=== PATIENT | male | born 1955 | race Caucasian/White ===

== ENCOUNTER 2023-05-01 14:22 | Outpatient (OUT) | payer MEDICARE, SELFPAY ==
--- NOTE | 2023-05-01 14:33 | ECG_ITS ---
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
== END 2023-05-01 14:23 | disposition home or self-care (01) ==
LOC: PST 14:29
PROVIDERS: Visit Provider Surgery
DX: Z01.810 Encounter for preprocedural cardiovascular examination (principal); R59.0 Localized enlarged lymph nodes; Z85.72 Personal history of non-Hodgkin lymphomas
CPT/HCPCS: 93005

== ENCOUNTER 2023-05-07 07:51 | Day surgery (SDC) | payer MEDICARE, SELFPAY ==
[2023-05-01 15:05] VITALS: PULSE 90; TEMP 36.6; O2SAT 96; BMI 23.2
[2023-05-07] VITALS (8 sets, daily range): BP systolic 96–132; BP diastolic 60–83; PULSE 81–96; RESP 14–22; TEMP 36.1–37.1; O2SAT 94–99
[2023-05-07] MEDS: LACTATED RINGER'S SOLUTION 1,000 ML 50 ML IV (08:22)
[2023-05-07] MEDS: CEFAZOLIN SODIUM/DEXTROSE,ISO 1 GM/50 ML IV.SOLN IV (09:01)
[2023-05-07] MEDS: BUPIVACAINE HCL 0.5% PF 50 MG/10 ML VIAL INJ (10:21)
--- NOTE | 2023-05-07 10:46 | OP_ITS ---
OPERATION DATE: ??05/07/2023 PREOPERATIVE DIAGNOSIS:? Bilateral inguinal adenopathy, history of lymphoma. POSTOPERATIVE DIAGNOSIS:? Bilateral inguinal adenopathy, history of lymphoma. PROCEDURE:? Incisional biopsy of large right infrainguinal lymph node. SURGEON:? Elmer Jung M.D. ANESTHESIA:? General with laryngeal mask airway as well as local with 0.5% Marcaine plain. ESTIMATED BLOOD LOSS:? Less than 5 mL. INDICATIONS AND CONSENT:? Patient is a 67-year-old male with a personal history of lymphoma, originally diagnosed 20 years ago.? He had good response to treatment and has been monitored.? He recently noted, over the last several months, enlarging adenopathy in the inguinal areas bilaterally.? ?Workup revealed extensive inguinal and pelvic adenopathy concerning for recurrent lymphoma.? Indications, risks, benefits, alternatives of proceeding with biopsy of enlarged lymph node were explained extensively to the patient, including the risks of bleeding, infection, scarring, pain, lymphocele, blood clot, pulmonary embolus, heart attack, anesthetic complications, need for further surgery.? All of his questions were answered.? Informed consent was obtained. PROCEDURE:? Patient brought to the operating room and placed in a supine position.? General anesthesia was induced.? He was prepped and draped in the usual sterile fashion.? An oblique incision was made in the area of the skin crease overlying the large right infrainguinal lymph node.? This was approximately 6-7 cm in greatest diameter, the lymph node.? It was carried down through subcutaneous tissue using sharp dissection as well as electrocautery.? The lymph node was partially freed up and incision was made in the capsule lymph node.? A 2 cm chunk of lymph node was sent fresh for flow cytometry in the special media, and another 2 cm segment was sent in fixative for permanent.? The capsule was closed with interrupted 3-0 Vicryl and 3-0 chromic sutures.? There was a small open area that was cauterized with electrocautery.? There was no active bleeding or drainage from the area.? The subcutaneous tissue was then re- approximated with interrupted 3-0 Monocryl suture.? The skin was then closed with a running 4-0 subcuticular Monocryl suture and skin glue.? Sterile pressure dressing was applied.? Sponge and needle counts were correct x2 per nursing personnel.? Patient tolerated procedure well, was sent to recovery room in good condition. CC:? Patient?s family physician. MIGUEL
--- NOTE | 2023-05-07 11:34 | PC.NURSE ---
dressing clean dry and intact
== END 2023-05-07 11:36 | disposition home or self-care (01) ==
PROVIDERS: Visit Provider Surgery
PROC: (CPT 38531; principal; 2023-05-07 08:50)
DX: C83.35 Diffuse large B-cell lymphoma, lymph nodes of inguinal region and lower limb (principal); E03.9 Hypothyroidism, unspecified; K21.9 Gastro-esophageal reflux disease without esophagitis; Z87.891 Personal history of nicotine dependence
CPT/HCPCS: 38531; 36415; 88307; 88341; 88342; 94667; 99999; J2704

== ENCOUNTER 2023-05-26 09:59 | Outpatient (OUT) | payer MEDICARE, SELFPAY ==
--- NOTE | 2023-05-26 11:01 | CA_ITS ---
Patient: KATIA SHAIKH Exam Date: 05/26/2023 : 1955 Gender:M Ordering : DR EMIL JOEL M.D. Admission #: [id number] Family : Elmer Jung . Order #: [id number] CLICK HERE TO VIEW EXAM ECHOCARDIOGRAM REPORT PROCEDURE: CA ECHO DOPPLER COMPLETE INDICATIONS: Non-Hodgkin lymphoma, DE DIOS COMPARISON: None. DESCRIPTION: COMPLETE ECHOCARDIOGRAM Real-time transthoracic echocardiography with 2D, M-mode, spectral and color flow Doppler performed. QUALITY: Technical quality was good. LEFT VENTRICLE: Normal chamber size. Normal left ventricular wall thickness. Global left ventricular systolic function is normal. LV EF: Estimated left ventricular ejection fraction is 65-70%. DIASTOLIC: Normal diastolic function. ATRIAL SEPTUM: LEFT ATRIUM: Normal chamber size. RIGHT ATRIUM: Mild dilatation. RIGHT VENTRICLE: Normal chamber size. Normal right ventricular systolic function. TRICUSPID VALVE: Normal mobility and thickness. No stenosis with mild regurgitation. Mild pulmonary hypertension. RVSP 37 mmHg MITRAL VALVE: Normal mobility and thickness. No evidence of mitral valve stenosis. There is no mitral annular calcification. Mild to moderate mitral regurgitation. AORTIC VALVE: Normal trileaflet appearance. Mildly calcified aortic valve. Mildly diminished mobility. No evidence of aortic valve stenosis. Trivial aortic regurgitation. AORTIC ROOT: Normal diameter and appearance. PULMONIC VALVE: Normal thickness and mobility. No stenosis. Trivial regurgitation. PERICARDIUM: No evidence of pericardial effusion. IVC: Collapses with inspirations. Normal size. PLEURA: CONCLUSION: 1. Normal left ventricular size and systolic function. LVEF is 65 to 70%. 2. Normal right ventricular size and systolic function. 3. Normal diastolic function. 4. Mild to moderate mitral regurgitation. 5. Mild tricuspid regurgitation. 6. Mildly calcified aortic valve with no significant stenosis or regurgitation. 7. Mildly elevated right-sided pressures. Adult Echocardiography Procedure Report Left Ventricle LVEDD (3.7 - 5.6 cm): 4.33 cm LVESD (2.2 - 4.0 cm): 2.98 cm LVIVS thickness (0.6 - 1.2 cm): 0.81 cm LVPW thickness (0.5 - 1.0 cm): 0.92 cm e': 0.12 m/s E - e': 7.22 LVOT Max Gradient: 6.11 mm[Hg], 5.31 mm[Hg] LVOT Area (cm2): 1.19 m/s Peak Velocity (LVOT): 1.24 m/s, 1.15 m/s Mean Velocity (LVOT): 0.80 m/s LVOT Diameter 1.74 cm Left Ventricular Ejection Fraction: 65-70 % Left Atrium LA Volume Index (2D A2C): 31.67 ml/m2 Left Atrium Systolic Dimension: 3.35 cm Mitral Valve MV E to A Ratio: 1.50, 1.32 Mitral Valve A-Wave Peak Velocity: 0.59 m/s Mitral Valve E-Wave Peak Velocity: 0.83 m/s Right Ventricle RV Internal Diastolic Dimension: 3.74 cm Aorta AO Root Diam: 3.01 cm Ascending Ao Diam: 2.75 cm Aortic Valve AoV Area (Peak Robert): 1.86 cm2, 1.90 cm2, 1.83 cm2 AoV Area (VTI): 1.74 cm2, 1.66 cm2, 1.82 cm2 Peak Velocity(Antegrade Flow): 1.54 m/s, 1.49 m/s Peak Gradient(Antegrade Flow): 9.53 mm[Hg], 8.93 mm[Hg] Mean Velocity(Antegrade Flow): 1.03 m/s, 0.99 m/s Mean Gradient(Antegrade Flow): 5.11 mm[Hg], 4.63 mm[Hg] Velocity Time Integral: 31.59 cm, 30.46 cm Tricuspid Valve Peak Velocity (Regurgitant Flow): 2.57 m/s, 2.70 m/s, 2.68 m/s, 2.92 m/s, 2.97 m/s Pulmonic Valve Mean Gradient: 4.05 mm[Hg], 4.00 mm[Hg] Mean Velocity: 0.95 m/s, 0.94 m/s Peak Velocity: 1.33 m/s, 1.15 m/s Peak Gradient: 7.09 mm[Hg], 7.09 mm[Hg], 5.33 mm[Hg] Right Atrium Right Atrium Systolic Pressure: 65.43 ml, 65.43 ml Dictated by: Kye Gong M.D. on 05/28/2023 at 17:52 Approved by: Kye Gong M.D. on 05/28/2023 at 17:56
== END 2023-05-26 10:00 | disposition home or self-care (01) ==
LOC: CARD 10:00
PROVIDERS: Visit Provider Internal Medicine Hematology & Oncology
DX: C85.98 Non-Hodgkin lymphoma, unspecified, lymph nodes of multiple sites (principal); R06.09 Other forms of dyspnea; I08.1 Rheumatic disorders of both mitral and tricuspid valves
CPT/HCPCS: 93306; 93356

== ENCOUNTER 2023-05-26 10:01 | Outpatient (OUT) | payer MEDICARE, SELFPAY | END 2023-05-26 10:02 | disposition home or self-care (01) | LOC: PST 10:01 | PROVIDERS: Visit Provider Surgery | DX: Z01.818 Encounter for other preprocedural examination (principal); C83.35 Diffuse large B-cell lymphoma, lymph nodes of inguinal region and lower limb ==

== ENCOUNTER 2023-05-28 11:13 | Day surgery (SDC) | payer MEDICARE, SELFPAY ==
[2023-05-26 11:32] VITALS: BP 126/79; PULSE 78; RESP 20; TEMP 35.9; O2SAT 97; BMI 24.7
[2023-05-28] VITALS (9 sets, daily range): BP systolic 114–140; BP diastolic 73–80; PULSE 85–95; RESP 16–20; TEMP 36.3–36.4; O2SAT 94–98
--- NOTE | 2023-05-28 | OP_ITS ---
OPERATION DATE: ??05/28/2023 PREOPERATIVE DIAGNOSIS:? B-cell lymphoma, need for secure central access for chemotherapy. POSTOPERATIVE DIAGNOSIS:? B-cell lymphoma, need for secure central access for chemotherapy. PROCEDURE:? Right subclavian Infusaport insertion. SURGEON:? Elmer Jung M.D. ANESTHESIA:? General with laryngeal mask airway, as well as local with 0.5% Marcaine plain. ESTIMATED BLOOD LOSS:? Less than 10 mL. INDICATIONS AND CONSENT:? Patient is a 67-year-old male presents with recurrent B-cell lymphoma.? Oncology has requested Infusaport for secure central access for chemotherapy.? Indications, risks, benefits, alternatives of proceeding with Infusaport insertion were explained extensively to the patient, including the risks of bleeding, infection, scarring, pain, pneumothorax, blood clot and pulmonary embolus, heart attack, anesthetic complications, need for further surgery or port removal.? All of his questions were answered.? Informed consent was obtained.? PROCEDURE:? Patient brought to the operating room and placed in the supine position.? General anesthesia was induced.? He was prepped and draped in the usual sterile fashion.? He did have a right external jugular vein noted and, therefore, cut down was made over the external jugular in the area of the skin crease, perpendicular to the long axis of the external jugular.? It was carried down and the external jugular was dissected free.? Once it was dissected free, it was found that the proximal part was of normal caliber, but then it quickly scarred down into a very small vessel.? I did attempt to cannulate this, but the catheter would not pass into this scarred down portion.? Therefore, the vein was ligated.? Attention was then turned to the chest wall, where a sterile similar technique was used to gain access to the right subclavian vein with patient in Trendelenburg position.? On the first stick, there was good return of venous blood.? The wire passed easily.? Position was checked with fluoroscopy.? It was noted to be in good position within the right heart.? A small stab incision was made over the bladder with a #11 blade.? The dilator was passed over the wire followed by the dilator and peel away sheath.? The dilator was removed with the wire.? The catheter was then inserted and the peel away sheath was removed.? The catheter was adjusted so it was in good position in the distal SVC at the level of the laquita.? The catheter aspirated blood easily and was then flushed with saline.? The area right around where the insertion site was, was enlarged, in the area of the skin crease with the 15 blade.? Pocket was then created above the pectoralis fascia using electrocautery.? The pre-flushed port was then attached to the catheter.? It aspirated blood easily, was then flushed with heparinized saline.? Fluoroscopy was checked once again.? The catheter was noted to be in good position without kinking or twisting along its course.? The port was then secured to the pectoralis fascia using interrupted 2-0 Prolene sutures.? Incisions were then closed in layers with interrupted 3-0 Monocryl sutures and 4-0 subcuticular Monocryl sutures and skin glue.? Sterile pressure dressings were applied.? Sponge and needle counts were correct x2 per nursing personnel.? Patient tolerated procedure well, was sent to recovery room in good condition, where the port with chest x-ray was pending at the time of this dictation.? CC:? Patient?s family physician ? Dr. Ashutosh RIVERA
[2023-05-28 11:35] LABS: Anion Gap 12.2; BUN Creatinine Ratio 12.9; Calcium 9.2 mg/dL (8.5-10.1); Carbon Dioxide 26.8 mmol/L (21.0-32.0); Chloride 104 mmol/L (98-107); Estimated GFR (African America >60 (>=60); Estimated GFR (Non-African Ame >60 (>=60); Glucose 100 mg/dL (74-106); Sodium 139 mmol/L (136-145)
[2023-05-28] MEDS: LACTATED RINGER'S SOLUTION 1,000 ML 50 ML IV (11:48)
[2023-05-28] MEDS: CEFAZOLIN SODIUM/DEXTROSE,ISO 2 GM/50 ML PIGGYBACK IV (12:15)
[2023-05-28] MEDS: BUPIVACAINE HCL 0.5% PF 50 MG/10 ML VIAL INJ (13:24)
[2023-05-28] MEDS: HEPARIN SODIUM (PORCINE) PF LOCK FLUSH 500 UNIT/5 ML SYRINGE INJ (13:25)
--- NOTE | 2023-05-28 13:53 | XR_ITS ---
The [address] [address] Patient Name: KATIA SHAIKH MRN: [id number] date: 1955 Sex: M Assigned Patient Location: SURGOUT Current Patient Location: [facility] Accession/Order Number: [id number] Exam Date: 05/28/2023 14:04 Report Date: 05/28/2023 14:23 At the request of: CHIQUITA RIVERA Procedure: XR chest 1V EXAMINATION: XR chest 1V HISTORY: s/p port placement COMPARISON: No relevant comparison available. TECHNIQUE: AP portable FINDINGS: LUNGS: No significant pulmonary parenchymal abnormalities. VASCULATURE: No increased pulmonary vasculature. PLEURA: No pneumothorax, effusion, or pleural thickening. CARDIAC: No cardiomegaly or cardiac silhouette abnormality. MEDIASTINUM: No visible mass or adenopathy. Right Port-A-Cath tip projects over the mid superior vena cava BONES: No fracture or visible bone lesion. OTHER: Negative. XR/XR chest 1V IMPRESSION: Right Port-A-Cath placement with no pneumothorax Electronically authenticated by: QUE ESQUIVEL Date: 05/28/2023 14:23
== END 2023-05-28 14:58 | disposition home or self-care (01) ==
PROVIDERS: Anesthesiology; Visit Provider Surgery
PROC: (CPT 36561; principal; 2023-05-28 14:35)
DX: C85.10 Unspecified B-cell lymphoma, unspecified site (principal)
CPT/HCPCS: 36561; 36415; 71045; 76000; 80048; C1778; J2704

== ENCOUNTER 2023-11-24 10:46 | Outpatient (OUT) | payer MEDICARE, SELFPAY ==
--- NOTE | 2023-11-24 10:50 | US_ITS ---
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 TECHNIQUE: Grayscale and color ultrasound FINDINGS: Identified in the right proximal thigh corresponding to the patient's palpable abnormality is a focal oval almost round very hypoechogenic heterogeneous hypervascular mass measuring 4.8 x 3.5 x 4.5 cm. This lesion is in the subcutaneous fat and appears to deform but not definitively invade the underlying muscle US/US extremity nonvascular RT IMPRESSION: 4.8 cm hypervascular mass corresponding to the patient's palpable abnormality. Electronically authenticated by: QUE ESQUIVEL Date: 11/24/2023 12:02
== END 2023-11-24 10:47 | disposition home or self-care (01) ==
LOC: US 10:46
PROVIDERS: Visit Provider Internal Medicine Hematology & Oncology
DX: C82.38 Follicular lymphoma grade IIIa, lymph nodes of multiple sites (principal)
CPT/HCPCS: 76882

== ENCOUNTER 2023-12-12 12:57 | Outpatient (OUT) | payer MEDICARE, SELFPAY ==
--- NOTE | 2023-12-12 13:00 | ECG_ITS ---
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
== END 2023-12-12 12:58 | disposition home or self-care (01) ==
LOC: PST 12:58
PROVIDERS: Visit Provider Surgery
DX: Z01.810 Encounter for preprocedural cardiovascular examination (principal); R19.09 Other intra-abdominal and pelvic swelling, mass and lump; R59.0 Localized enlarged lymph nodes; Z85.72 Personal history of non-Hodgkin lymphomas; C83.30 Diffuse large B-cell lymphoma, unspecified site
CPT/HCPCS: 93005

== ENCOUNTER 2023-12-17 09:18 | Day surgery (SDC) | payer MEDICARE, SELFPAY ==
[2023-12-12 13:18] VITALS: BP 131/83; PULSE 95; RESP 18; TEMP 36.5; O2SAT 96; BMI 25.3
[2023-12-17] VITALS (8 sets, daily range): BP systolic 108–129; BP diastolic 69–95; PULSE 69–95; RESP 12–16; TEMP 36.3–36.4; O2SAT 95–97
--- NOTE | 2023-12-17 | OP_ITS ---
OPERATION DATE: 12/17/2023 PREOPERATIVE DIAGNOSIS: Enlarged right inguinal lymph node, history of lymphoma. POSTOPERATIVE DIAGNOSIS: Enlarged right inguinal lymph node, history of lymphoma. PROCEDURE: Excisional biopsy, right inguinal lymph node, 6 cm in diameter. SURGEON: Elmer Jung M.D. ANESTHESIA: General as well as local with Exparel and 0.25% Marcaine solution. ESTIMATED BLOOD LOSS: Less than 10 mL. INDICATIONS AND CONSENT: Patient is a 68-year-old male with history of lymphoma x2. He did have a lymph node biopsy this past May and was treated for extensive lymphoma in the bilateral inguinal areas, as well as other areas. He had good response, except to one area in the right groin, which initially decreased markedly, but then has gradually been increasing since his chemotherapy has been discontinued, and this had increased activity on PET scan. His oncologist requested a repeat biopsy. Indications, risks, benefits, alternatives of proceeding were explained extensively to the patient, including the risks of bleeding, infection, scarring, pain, nerve injury, lymphocele, need for further surgery, chronic wound problems. All of his questions were answered. Informed consent was obtained. PROCEDURE: Patient brought to the operating room, placed in the supine position. General anesthesia was induced. He was prepped and draped in the usual sterile fashion. The previous incision overlying the enlarged lymph node was opened with the scalpel blade and carried down through subcutaneous tissue using sharp dissection, as well as electrocautery. There was noted to be chronic inflammatory changes around the lymph node, which was approximately 6 cm in greatest diameter. It was carefully freed up circumferentially by dividing small vessels and lymphatics. Using the harmonic scalpel, some larger vessels were clipped. It was noted to be an enlarged lymph node. It was completely excised. Half of it was sent fresh, in medium, for flow cytometry. The remaining was sent to pathology in formalin. All lymphatics were either divided with the harmonic or with clips. The wound was irrigated. There was good hemostasis. Subcutaneous tissues were re-approximated with interrupted 3-0 Monocryl suture. The skin was then closed with a running 4-0 subcuticular Monocryl suture and skin glue as well as a sterile pressure dressing. Sponge and needle counts were correct x2 per nursing personnel. Patient tolerated procedure well, was sent to recovery room in good condition. CC: Patient?s family physician Dr. Ashutosh RIVERA
--- OUTSIDE RECORDS SUMMARY | 2023-12-17 09:31 | XMS_ITS | CCD ---
Author Name Unknown Address [address] [place] [address] Organization [facility] Care Team Providers Care Pharmacology Teacher Name Role Phone Unavailable Primary Care Provider EMELIA Everett Referring Unavailable Unavailable Primary Care Provider UnavailEMELIA Velazquez Primary Care Physician Unavailable Primary Care Provider Erasmo Feliz ASSEMBLER CAMPER.Cleo RAUSCH Unavailable [phone] Michael Boykin MD Unavailable [phone] Augustina WILSON, Ivania Unavailable Augustina WILSON, Ivania Unavailable [phone] MICHAEL BOYKIN R Referring Unavailable ASHUTOSH, MICHAEL R Referring Unavailable ASHUTOSH, MICHAEL R Referring Unavailable ASHUTOSH MICHAEL R Attending Unavailable ASHUTOSH MICHAEL R Referring Unavailable ASHUTOSH, MICHAEL R Referring Unavailable ASHUTOSH, MICHAEL R Referring Unavailable ASHUTOSH, MICHAEL R Referring Unavailable ASHUTOSH, MICHAEL R Referring Unavailable ASHUTOSH, MICHAEL R Referring Unavailable ASHUTOSH, MICHAEL R Referring Unavailable ASHUTOSH, MICHAEL R Referring Unavailable ASHUTOSH, MICHAEL R Referring Unavailable ASHUTOSH, MICHAEL R Referring Unavailable CLEO FELIZ Attending Unavailable ASHUTOSH, MICHAEL R Referring Unavailable BOYKIN, MICHAEL R Referring Unavailable BOYKIN, MICHAEL R Referring Unavailable ASHUTOSH, MICHAEL R Attending Unavailable ASHUTOSH MICHAEL R Attending Unavailable ASHUTOSH, MICHAEL R Referring Unavailable NIESHA GALDAMEZ Attending Unavailable FELICITAS BOYKINIAN R Referring Unavailable ASHUTOSH, MICHAEL R Attending Unavailable ASHUTOSH, MICHAEL R Referring Unavailable ASHUTOSH, MICHAEL R Referring Unavailable ASHUTOSH, MICHAEL R Referring Unavailable ASHUTOSH, MICHAEL R Referring Unavailable CLEO FELIZ Referring Unavailable ASHUTOSH, MICHAEL R Referring Unavailable BOYKIN, MICHAEL R Referring Unavailable ASHUTOSH, MICHAEL R Attending Unavailable ASHUTOSH MICHAEL R Referring Unavailable ASHUTOSH, MICHAEL R Referring Unavailable ASHUTOSH, MICHAEL R Referring Unavailable BOYKIN, MICHAEL R Attending Unavailable MICHAEL BOYKIN Referring Unavailable CLEO FELIZ Attending Unavailable MICHAEL BOYKIN Attending Unavailable IMCHAEL BOYKIN Referring Unavailable MICHAEL BOYKIN Referring Unavailable EMELIA GONZALEZ R Referring Unavailable MICHAEL BOYKIN Attending Unavailable MIGUEL, Elmer Martins Attending Unavailable NILMana, Elmer Martins Attending Unavailable NILMana, Elmer Martins Attending Unavailable NILL, Elmer Martins Attending Unavailable Michael Boykin Referring Unavailable NILL, Elmer Martins Attending Unavailable EMELIA GONZALEZ Referring Unavailable NILL, Elmer Martins Attending Unavailable Allergies Allergy Classification Reported Allergen(s) Allergy Type Date of Onset Reaction(s) Facility (15 sources) Allopurinol; Translations: [ALLOPURINOL] Drug Allergy 3 Rash [facility] (1 source) No Known Medication Allergies; Translations: [No Known Medication Allergies] Propensity to adverse reactions (disorder) [facility] Repository Medications Current Medications Medication Drug Class(es) Dates Sig (Normalized) Sig (Original) Fish Oils (6 sources) Start: 04-23-2023 Fish Oil Refil l(s) 0, as directed Start Date: 04/23/23 Status: Ordered take 1 tablet by mouth once sherrie y FISH OIL Take 1 tablet by mouth daily. 0 Active levothyroxine sodium 0.125 mg oral tablet (20 sources) l-Thyroxine Start: 04-23-2023 take 1 tablet by mouth once daily levothyroxine 125 mcg (0.125 mg) Tab 125 mcg = 1 tab(s), Oral, Daily, Refills(s) 0 Start Date: 04/23/23 Status: Ordered Start: 04-17-2022 take 1 tablet by mouth once le vothyroxine (SYNTHROID) 125 mcg tablet Take 1 tablet by mouth every afternoon. 0 02/25/2023 Active Start: 04-19-2020 take 1 tablet by radha th once daily levothyroxine (LEVOTHROID) 125 MCG tablet Take 1 tablet by mouth daily 90 tablet 3 04/19/2020 Active Start: 02-04-2020 take 1 tablet by radha th once daily levothyroxine (LEVOTHROID) 125 MCG tablet Take 1 tablet by mouth daily 90 tablet 1 02/04/2020 Active Comment on above: Take 1 tablet by radha th every afternoon. Multi Vitamins oral tablet (3 sources) Start: 3 take 1 tablet by mouth once daily Multi Vitamins oral tablet 1 tab(s), Oral, Daily, Refill(s) 0 Start Date: 04/23/23 Status: Ordered Multiple Vitamin (MULTI-VITAMIN) TABS (3 sources) take 1 tablet by mouth once daily Multiple Vitamin (MULTI-VITAMIN) TABS Take 1 tablet by mouth daily. 0 Active perflutren lipid microspheres 1.3 mL in NaCl (PF) 0.9% 10 mL injection (DEFINITY) (20 sources) Start: 3 End: 4 perflutren lipid microspheres 1.3 mL in NaCl (PF) 0.9% 10 mL injection (DEFINITY) 125 ml sodium chloride 9 mg/ml prefilled syringe (20 sources) Start: 3 End: 4 sodium chloride 0.9 % (flush) 10 mL (BD POSIFLUSH) Completed/Discontinued Medications Medication Drug Class(es) Dates Sig (Normalized) Sig (Original) allopurinol 300 mg oral tablet (11 sources) Xanthine Oxidase Inhibitor Start: 06-06-2023 End: 07-08-2023 take 1 tablet by mouth once daily allopurinol (ZYLOPRIM) 300 mg tablet Take 1 tablet by mouth once daily. 30 tablet 1 06/06/2023 07/08/2023 Discontinued (Discontinued by Patient) Comment on above: Take 1 tablet by radha th once daily. collagen, hydrolysate, bovine, (COLLAGEN, HYDR, BOVINE,, BULK,) 100 % powd (20 sources) take 1 dose by mouth once daily collagen, hydrolysate, bovine, (COLLAGEN, HYDR, BOVINE,, BULK,) 100 % powd Take 1 Dose by mouth once daily. 0 Active Comment on above: Take 1 Dose by mouth once daily. KRILL OIL ORAL (20 sources) take 1 dose by mouth once daily KRILL OIL ORAL Take 1 Dose by mouth once daily. 0 Active KRILL OIL ORAL T sally by mouth. 0 Active Comment on above: Take by mouth. Take 1 Dose by mouth once daily. methylPREDNISolone (2 sources) Corticosteroid Start: 06-27-2023 End: 07-02-2023 methylPREDNISolone (MEDROL, JOHNNY,) 4 mg Dose-Pack Use as directed. 21 tablet 0 06/27/2023 07/02/2023 Start: 06-27-2023 End: 07-02-2023 methylPREDNISolone (MEDROL, JOHNNY,) 4 mg Dose-Pack Use as directed. 21 tablet 0 06/27/2023 07/02/2023 Active Comment on above: Use as directed. MULTIVITAMIN ORAL (20 sources) take 1 dose by mouth once daily MULTIVITAMIN ORAL Take 1 Dose by mouth once daily. 0 Active MULTIVITAMIN ORA L Take by mouth. 0 Active Comment on above: Take by mouth. Take 1 Dose by mouth once daily. ondansetron 8 mg oral tablet (20 sources) Serotonin-3 Receptor Antagonist Start: 2022 End: 2022 take 1 tablet by mouth every eight hours as needed ondansetron (ZOFRAN) 8 mg tablet Take 1 tablet by mouth every 8 hours as needed for nausea/vomiting. 90 tablet 1 06/06/2023 Active Comment on above: Take 1 tablet by radha th every 8 hours as needed for nausea/vomiting. predniSONE 20 mg oral tablet (15 sources) Start: 2022 End: 2022 take 1 tablet by mouth once daily, then take 2 tablets by mouth once daily, then take 1 tablet by mouth once daily predniSONE (DELTASONE) 20 mg tablet Take 1 tablet by mouth once daily. 2 daily x 5 days, then 1 daily 30 tablet 1 06/02/2023 07/08/2023 Discontinued Comment on above: Take 1 tablet by radha th once daily. 2 daily x 5 days, then 1 daily prochlorperazine 10 mg oral tablet (20 sources) Phenothiazine Start: 2022 End: 2022 take 1 tablet by mouth every six hours as needed prochlorperazine (COMPAZINE) 10 mg tablet Take 1 tablet by mouth every 6 hours as needed. 100 tablet 1 06/06/2023 Active Comment on above: Take 1 tablet by radha th every 6 hours as needed. triamcinolone acetonide 1 mg/ml topical cream (3 sources) Corticosteroid Start: 2022 End: 2022 triamcinolone acetonide (KENALOG) 0.1 % cream Apply to affected area twice daily. 454 g 1 06/27/2023 07/08/2023 Discontinued Comment on above: Apply to affected ar ea twice daily. Problems Problem Classification Problem Date Documented Date Episodic/Chronic Coagulation and hemorrhagic disorders (6 sources) Platelet count below reference range; Translations: [Thrombocytopenia, unspecified] Onset: 08-06-2023 08-06-2023 Chronic Esophageal disorders (3 sources) Gastroesophageal reflux disease 04-23-2023 Chronic Lymphadenitis (5 sources) Localized enlarged lymph nodes; Translations: [Localized enlarged lymph nodes] Onset: 04-29-2023 Episodic Non-Hodgkin`s lymphoma (20 sources) Non-Hodgkin's lymphoma (clinical); Translations: [Malignant lymphoma of extranodal AND/OR solid organ site] Onset: 02-11-2013 02-11-2013 Chronic Non-Hodgkin`s lymphoma (3 sources) History of B-cell lymphoma; Translations: [Personal history of non-Hodgkin lymphomas] 05-31-2023 Episodic Other aftercare (1 source) Procedure carried out on subject; Translations: [Encounter for adjustment and management of vascular access device] Onset: 06-17-2023 Episodic Other lower respiratory disease (1 source) Dyspnea on exertion; Translations: [Other forms of dyspnea] 05-19-2023 Episodic Other nutritional; endocrine; and metabolic disorders (3 sources) Overweight 04-29-2023 Episodic Other nutritional; endocrine; and metabolic disorders (3 sources) Overweight in adulthood with body mass index of 25 or more but less than 30 04-29-2023 Episodic Residual codes; unclassified (1 source) Device in situ 06-17-2023 Episodic Thyroid disorders (14 sources) Hypothyroidism; Translations: [Hypothyroidism, unspecified] Onset: 02-11-2013 08-03-2015 Chronic Unclassified (1 source) Patient encounter status; Translations: [Encounter for screening for lung cancer] Results Test Name Value Interpretation Reference Range Facility ECG 12-Leadon 12-15-2023 ECG 12-Lead [id number]#1.0 0TIFF Normal [facility] Consent for Procedure/Surger yon 12-11-2023 Consent for Procedure/Surgery [id number]#1.0 0TIFF Normal [facility] Ambulatory Visit Summaryon 0 12-09-2023 Ambulatory Visit Summary KATIA FAULKNER :1955 Visit Date:12/09/2023 Ambulatory Visit Instructions Your Care Team Attending Physician - MIGUEL LOFTON, Elmer Martins Primary Care Physician - SANDRA LOFTON, EMELIA Referring Physician - Ashutosh LOFTON, Michael Martins This Is Your Medications List levothyroxine (levothyroxine 125 mcg (0.125 mg) Tab) multivitamin (Multi Vitamins oral tablet) omega-3 polyunsaturated fatty acids (Fish Oil) Procedures Performed Insertion of implantable venous access port (05/28/2023), Biopsy of inguinal lymph node (05/07/2023), Thoracentesis (01/28/2002), Bronchoscopy (01/20/2002), Biopsy of lymph node. Discharge Vitals Heart Rate (Peripheral) 70 Respiratory Rate 16 Blood Pressure 116/78 Height 177.8 cm Height 70 in Weight 84.6 kg Weight 186.12 lb BMI 26.76 Medications What How Much When Instructions Unchanged levothyroxine (levothyroxine 125 mcg (0.125 mg) Tab) 1 Tablets By Mouth Every day Unchanged multivitamin (Multi Vitamins oral tablet) 1 Tablets By Mouth Every day Unchanged omega-3 polyunsaturated fatty acids (Fish Oil) as directed Medications and Immunizations Administered Not Given influenza virus vaccine, inactivated, Patient Refuses Allergies allopurinol Problems Ongoing - Any problem that you are currently receiving treatment for. BMI 26.0-26.9,adult Diffuse large B-cell lymphoma Encounter for care related to Port-a-Cath GERD (gastroesophageal reflux disease) Hypothyroidism Inguinal adenopathy Overweight Patient Survey You may receive a survey via text or e-mail asking about your office visit. Please share your experience with us by completing your survey. We appreciate your feedback and thank you for choosing us for your care. Normal [facility] RAD - Nuclear Medicine Repor ton 12-09-2023 RAD - Nuclear Medicine Report [id number]#1.0 0TIFF Normal [facility] RAD - Ultrasound Reporton RAD - Ultrasound Report [id number]#1.0 0TIFF Normal [facility] CNPNon 12-01-2023 CNPN Normal [facility] RAD - Ultrasound Reporton RAD - Ultrasound Report [id number]#1.00 TIFF Normal [facility] CNPNon 11-24-2023 CNPN Normal [facility] Physician Referralon 024 Physician Referral [id number]#1.0 0TIFF Normal [facility] CNOVSPon 11-20-2023 CNOVSP Normal [facility] CNPNon 11-20-2023 CNPN Normal [facility] CNPNon 11-19-2023 CNPN Normal [facility] CBC W Auto Differential pane l (Bld)on 11-18-2023 Basophils (Bld) [#/Vol] 0.05 10*3/uL Normal <0.11 [facility] Comment on above: Order Comment: Speci men Type: BLOOD SPECIMENOrdering Facility: [facility] Address: [address] [place] [address] Performed By: #### 5 7021-8 ####[facility] LABCLIA [id number] [place] [address] Basophils/100 WBC (Bld) 1.5 % Normal [facility] Comment on above: Order Comment: Speci men Type: BLOOD SPECIMENOrdering Facility: [facility] Address: [address] [place] [address] Performed By: #### 5 7021-8 ####[facility] LABCLIA [id number] [place] [address] Differential cell count method Nom (Bld) Auto Normal [facility] Comment on above: Order Comment: Speci men Type: BLOOD SPECIMENOrdering Facility: [facility] Address: [address] [place] [address] Performed By: #### 5 7021-8 ####[facility]CLIA [id number] [place] [address] Eosinophils (Bld) [#/Vol] 0.16 10*3/uL Normal <0.46 [facility] Comment on above: Order Comment: Speci men Type: BLOOD SPECIMENOrdering Facility: [facility] Address: [address] [place] [address] Performed By: #### 5 7021-8 ####[facility] LABCLIA [id number] [place] [address] Eosinophils/100 WBC (Bld) 4.8 % Normal [facility] Comment on above: Order Comment: Speci men Type: BLOOD SPECIMENOrdering Facility: [facility] Address: [address] [place] [address] Performed By: #### 5 7021-8 ####[facility] LABCLIA [id number] [place] [address] Erythrocyte distribution width (RBC) [Ratio] 14.1 % Normal 11.5-15.0 [facility] Comment on above: Order Comment: Speci men Type: BLOOD SPECIMENOrdering Facility: [facility] Address: [address] [place] [address] Performed By: #### 5 7021-8 ####[facility]CLIA [id number] [place] [address] Hematocrit (Bld) [Volume fraction] 41.5 % Normal 39.0-51.0 [facility] Comment on above: Order Comment: Speci men Type: BLOOD SPECIMENOrdering Facility: [facility] Address: [address] [place] [address] Performed By: #### 5 7021-8 ####[facility] LABCLIA [id number] [place] [address] Hemoglobin (Bld) [Mass/Vol] 14.6 g/dL Normal 13.0-17.0 [facility] Comment on above: Order Comment: Speci men Type: BLOOD SPECIMENOrdering Facility: [facility] Address: [address] [place] [address] Performed By: #### 5 7021-8 ####[facility] LABCLIA [id number] [place] [address] Immature granulocytes (Bld) [#/Vol] 10*3/uL Normal <0.10 [facility] Comment on above: Order Comment: Speci men Type: BLOOD SPECIMENOrdering Facility: [facility] Address: [address] [place] [address] Performed By: #### 5 7021-8 ####[facility]CLIA [id number] [place] [address] Immature granulocytes/100 WBC (Bld) 0.6 % Normal [facility] Comment on above: Order Comment: Speci men Type: BLOOD SPECIMENOrdering Facility: [facility] Address: [address] [place] [address] Performed By: #### 5 7021-8 ####[facility] LABIA [id number] [place] [address] Lymphocytes (Bld) [#/Vol] 0.32 10*3/uL Low 1.00-4.00 [facility] Comment on above: Order Comment: Speci men Type: BLOOD SPECIMENOrdering Facility: [facility] Address: [address] [place] [address] Performed By: #### 5 7021-8 ####[facility] LABCLIA [id number] [place] [address] Lymphocytes/100 WBC (Bld) 9.5 % Normal [facility] Comment on above: Order Comment: Speci men Type: BLOOD SPECIMENOrdering Facility: [facility] Address: [address] [place] [address] Performed By: #### 5 7021-8 ####[facility] LABIA [id number] [place] [address] MCH (RBC) [Entitic mass] 31.9 pg Normal 26.0-34.0 [facility] Comment on above: Order Comment: Speci men Type: BLOOD SPECIMENOrdering Facility: [facility] Address: [address] [place] [address] Performed By: #### 5 7021-8 ####[facility] LABCLIA [id number] [place] [address] MCHC (RBC) [Mass/Vol] 35.2 g/dL Normal 30.5-36.0 [facility] Comment on above: Order Comment: Speci men Type: BLOOD SPECIMENOrdering Facility: [facility] Address: [address] [place] [address] Performed By: #### 5 7021-8 ####[facility] LABCLIA [id number] [place] [address] MCV (RBC) [Entitic vol] 90.8 fL Normal 80.0-100.0 [facility] Comment on above: Order Comment: Speci men Type: BLOOD SPECIMENOrdering Facility: [facility] Address: [address] [place] [address] Performed By: #### 5 7021-8 ####[facility] LABCLIA [id number] [place] [address] Monocytes (Bld) [#/Vol] 0.62 10*3/uL Normal <0.87 [facility] Comment on above: Order Comment: Speci men Type: BLOOD SPECIMENOrdering Facility: [facility] Address: [address] [place] [address] Performed By: #### 5 7021-8 ####[facility] LABCLIA [id number] [place] [address] Monocytes/100 WBC (Bld) 18.5 % Normal [facility] Comment on above: Order Comment: Speci men Type: BLOOD SPECIMENOrdering Facility: [facility] Address: [address] [place] [address] Performed By: #### 5 7021-8 ####[facility] LABCLIA [id number] [place] [address] Neutrophils (Bld) [#/Vol] 2.19 10*3/uL Normal 1.45-7.50 [facility] Comment on above: Order Comment: Speci men Type: BLOOD SPECIMENOrdering Facility: [facility] Address: [address] [place] [address] Performed By: #### 5 7021-8 ####[facility] LABCLIA [id number] [place] [address] Neutrophils/100 WBC (Bld) 65.1 % Normal [facility] Comment on above: Order Comment: Speci men Type: BLOOD SPECIMENOrdering Facility: [facility] Address: [address] [place] [address] Performed By: #### 5 7021-8 ####[facility] LABCLIA [id number] [place] [address] Nucleated RBC (Bld) [#/Vol] 10*3/uL Normal <0.01 [facility] Comment on above: Order Comment: Speci men Type: BLOOD SPECIMENOrdering Facility: [facility] Address: [address] [place] [address] Performed By: #### 5 7021-8 ####[facility] LABCLIA [id number] [place] [address] Nucleated RBC/100 WBC (Bld) [Ratio] 0.0 /100 WBC Normal [facility] Comment on above: Order Comment: Speci men Type: BLOOD SPECIMENOrdering Facility: [facility] Address: [address] [place] [address] Performed By: #### 5 7021-8 ####[facility] LABCLIA [id number] [place] [address] Platelet mean volume (Bld) [Entitic vol] 9.5 fL Normal 9.0-12.7 [facility] Comment on above: Order Comment: Speci men Type: BLOOD SPECIMENOrdering Facility: [facility] Address: [address] [place] [address] Performed By: #### 5 7021-8 ####[facility] LABCLIA [id number] [place] [address] Platelets (Bld) [#/Vol] 184 10*3/uL Normal 150-400 [facility] Comment on above: Order Comment: Speci men Type: BLOOD SPECIMENOrdering Facility: [facility] Address: [address] [place] [address] Performed By: #### 5 7021-8 ####[facility] LABIA [id number] [place] [address] RBC (Bld) [#/Vol] 4.57 10*6/uL Normal 4.20-6.00 [facility] Comment on above: Order Comment: Speci men Type: BLOOD SPECIMENOrdering Facility: [facility] Address: [address] [place] [address] Performed By: #### 5 7021-8 ####[facility] LABIA [id number] [place] [address] WBC (Bld) [#/Vol] 3.36 10*3/uL Low 3.70-11.00 [facility] Comment on above: Order Comment: Speci men Type: BLOOD SPECIMENOrdering Facility: [facility] Address: [address] [place] [address] Performed By: #### 5 7021-8 ####[facility] LABIA [id number] [place] [address] Comprehensive metabolic 2000 panelon 11-18-2023 Albumin [Mass/Vol] 4.5 g/dL Normal 3.9-4.9 [facility] Comment on above: Order Comment: Speci men Type: BLOOD SPECIMENOrdering Facility: [facility] Address: [address] [place] [address] Performed By: #### 2 4323-8, 3084-1 ####[facility] LABIA [id number] [place] [address] ALP [Catalytic activity/Vol] 171 U/L High 38-113 [facility] Comment on above: Order Comment: Speci men Type: BLOOD SPECIMENOrdering Facility: [facility] Address: [address] [place] [address] Performed By: #### 2 4323-8, 3083- ####[facility] LABCLIA [id number] [place] [address] ALT [Catalytic activity/Vol] 19 U/L Normal 10-54 [facility] Comment on above: Order Comment: Speci men Type: BLOOD SPECIMENOrdering Facility: [facility] Address: [address] [place] [address] Performed By: #### 2 4323-8, 3083- ####[facility] LABCLIA [id number] [place] [address] Anion gap [Moles/Vol] 11 mmol/L Normal 9-18 [facility] Comment on above: Order Comment: Speci men Type: BLOOD SPECIMENOrdering Facility: [facility] Address: [address] [place] [address] Performed By: #### 2 4323-8, 3083- ####[facility] LABCLIA [id number] [place] [address] AST [Catalytic activity/Vol] 21 U/L Normal 14-40 [facility] Comment on above: Order Comment: Speci men Type: BLOOD SPECIMENOrdering Facility: [facility] Address: [address] [id number] Performed By: #### 2 4323-8, 3083-11 ####[facility] LABCLIA [id number] [place] [address] Bilirubin [Mass/Vol] 0.2 mg/dL Normal 0.2-1.3 [facility] Comment on above: Order Comment: Speci men Type: BLOOD SPECIMENOrdering Facility: [facility] Address: [address] [place] [address] Performed By: #### 2 4323-8, 3083- ####[facility] LABCLIA [id number] [place] [address] Calcium [Mass/Vol] 9.8 mg/dL Normal 8.5-10.2 [facility] Comment on above: Order Comment: Speci men Type: BLOOD SPECIMENOrdering Facility: [facility] Address: [address] [place] [address] Performed By: #### 2 4323-8, 308-1 ####[facility] LABCLIA [id number] [place] [address] Chloride [Moles/Vol] 107 mmol/L High 97-105 [facility] Comment on above: Order Comment: Speci men Type: BLOOD SPECIMENOrdering Facility: [facility] Address: [address] [place] [address] Performed By: #### 2 4323-8, 3083- ####[facility] LABCLIA [id number] [place] [address] CO2 [Moles/Vol] 25 mmol/L Normal 22-30 [facility] Comment on above: Order Comment: Speci men Type: BLOOD SPECIMENOrdering Facility: [facility] Address: [address] [place], [place] [address] Performed By: #### 2 4323-8, 3083- ####[facility] LABCLIA [id number] [place] [address] Creatinine [Mass/Vol] 0.96 mg/dL Normal 0.73-1.22 [facility] Comment on above: Order Comment: Speci men Type: BLOOD SPECIMENOrdering Facility: [facility] Address: [address] [place] [address] Performed By: #### 2 4323-8, 308- ####[facility] LABCLIA [id number] [place] [address] Creatinine and Glomerular filtration rate.predicted panel (S/P/Bld) 87 mL/min/1.73m??? Normal >=60 [facility] Comment on above: Order Comment: Sara randle Type: BLOOD SPECIMENOrdering Facility: [facility] Address: [address] [id number] Result Comment: Carol mated Glomerular Filtration Rate (eGFR) is calculated using the 2020 CKD-EPI creatinine equation. This equation utilizes serum creatinine, sex, and age as parameters. The creatinine assay has traceable calibration to isotope dilution-mass spectrometry. Refer to KDIGO guidelines for clinical interpretation. In patients with unstable renal function, e.g. those with acute kidney injury, the eGFR may not accurately reflect actual GFR. Performed By: #### 2 4323-8, 3083- ####[facility] LABIA [id number] [place] [address] Glucose [Mass/Vol] 94 mg/dL Normal 74-99 [facility] Comment on above: Order Comment: Sara randle Type: BLOOD SPECIMENOrdering Facility: [facility] Address: [address] [place] [address] Result Comment: The [place] Diabetes Association (ADA) provides guidance for cutoff values for fasting glucose and random glucose. The ADA defines fasting as no caloric intake for at least 8 hours. Fasting plasma glucose results between 100 to 125 mg/dL indicate increased risk for diabetes (prediabetes).Fasting plasma glucose results greater than or equal to 126 mg/dL meet the criteria for diagnosis of diabetes. In the absence of unequivocal hyperglycemia, results should be confirmed by repeat testing. In a patient with classic symptoms of hyperglycemia or hyperglycemic crisis, random plasma glucose results greater than or equal to 200 mg/dL meet the criteria for diagnosis of diabetes.Reference: Standards of Medical Care in Diabetes 2016, [place] [employer]. Diabetes Care. 2016.39(Suppl 1). Performed By: #### 2 4323-8, 3083-11 ####[facility] LABIA [id number] [place] [address] Potassium [Moles/Vol] 4.2 mmol/L Normal 3.7-5.1 [facility] Comment on above: Order Comment: Sara randle Type: BLOOD SPECIMENOrdering Facility: [facility] Address: [address] [id number] Performed By: #### 2 4323-8, 3083- ####[facility] LABCLIA [id number] [place] [address] Protein [Mass/Vol] 7.3 g/dL Normal 6.3-8.0 [facility] Comment on above: Order Comment: Speci men Type: BLOOD SPECIMENOrdering Facility: [facility] Address: [address] [place] [address] Performed By: #### 2 4323-8, 3083- ####[facility] LABCLIA [id number] [place] [address] Sodium [Moles/Vol] 143 mmol/L Normal 136-144 [facility] Comment on above: Order Comment: Speci men Type: BLOOD SPECIMENOrdering Facility: [facility] Address: [address] [place] [address] Performed By: #### 2 4323-8, 3083-11 ####[facility] LABCLIA [id number] [place] [address] Urea nitrogen [Mass/Vol] 15 mg/dL Normal 9-24 [facility] Comment on above: Order Comment: Speci men Type: BLOOD SPECIMENOrdering Facility: [facility] Address: [address] [place] [address] Performed By: #### 2 4323-8, 3083-11 ####[facility] LABCLIA [id number] [place] [address] NM PET/CT SKULL-THIGH SUBQon 11-18-2023 NM PET/CT SKULL-THIGH SUBQ Normal [facility] Urate SerPl-mCncon 4 Urate [Mass/Vol] 6.7 mg/dL Normal 4.0-8.1 [facility] Comment on above: Order Comment: Speci men Type: BLOOD SPECIMENOrdering Facility: [facility] Address: [address] [place] [address] Performed By: #### 2 4323-8, 3083- ####[facility] LABCLIA [id number] [place] [address] CBC W Auto Differential pane l (Bld)on 10-28-2023 Basophils (Bld) [#/Vol] 0.06 10*3/uL Normal <0.11 [facility] Comment on above: Order Comment: Speci men Type: BLOOD SPECIMENOrdering Facility: [facility] Address: [address] [place] [address] Performed By: #### 5 7021-8 ####[facility] LABCLIA [id number] [place] [address] Basophils/100 WBC (Bld) 1.4 % Normal [facility] Comment on above: Order Comment: Speci men Type: BLOOD SPECIMENOrdering Facility: [facility] Address: [address] [place] [address] Performed By: #### 5 7021-8 ####[facility] LABCLIA [id number] [place] [address] Differential cell count method Nom (Bld) Auto Normal [facility] Comment on above: Order Comment: Speci men Type: BLOOD SPECIMENOrdering Facility: [facility] Address: [address] [place] [address] Performed By: #### 5 7021-8 ####[facility] LABCLIA [id number] [place] [address] Eosinophils (Bld) [#/Vol] 0.23 10*3/uL Normal <0.46 [facility] Comment on above: Order Comment: Speci men Type: BLOOD SPECIMENOrdering Facility: [facility] Address: [address] [place] [address] Performed By: #### 5 7021-8 ####[facility] LABCLIA [id number] [place] [address] Eosinophils/100 WBC (Bld) 5.2 % Normal [facility] Comment on above: Order Comment: Speci men Type: BLOOD SPECIMENOrdering Facility: [facility] Address: [address] [place] [address] Performed By: #### 5 7021-8 ####[facility] LABCLIA [id number] [place] [address] Erythrocyte distribution width (RBC) [Ratio] 14.0 % Normal 11.5-15.0 [facility] Comment on above: Order Comment: Speci men Type: BLOOD SPECIMENOrdering Facility: [facility] Address: [address] [place] [address] Performed By: #### 5 7021-8 ####[facility] LABCLIA [id number] [place] [address] Hematocrit (Bld) [Volume fraction] 39.6 % Normal 39.0-51.0 [facility] Comment on above: Order Comment: Speci men Type: BLOOD SPECIMENOrdering Facility: [facility] Address: [address] [place] [address] Performed By: #### 5 7021-8 ####[facility] LABCLIA [id number] [place] [address] Hemoglobin (Bld) [Mass/Vol] 13.8 g/dL Normal 13.0-17.0 [facility] Comment on above: Order Comment: Speci men Type: BLOOD SPECIMENOrdering Facility: [facility] Address: [address] [place] [address] Performed By: #### 5 7021-8 ####[facility] LABCLIA [id number] [place] [address] Immature granulocytes (Bld) [#/Vol] 0.04 10*3/uL Normal <0.10 [facility] Comment on above: Order Comment: Speci men Type: BLOOD SPECIMENOrdering Facility: [facility] Address: [address] [place] [address] Performed By: #### 5 7021-8 ####[facility] LABCLIA [id number] [place] [address] Immature granulocytes/100 WBC (Bld) 0.9 % Normal [facility] Comment on above: Order Comment: Speci men Type: BLOOD SPECIMENOrdering Facility: [facility] Address: [address] [place] [address] Performed By: #### 5 7021-8 ####[facility] LABCLIA [id number] [place] [address] Lymphocytes (Bld) [#/Vol] 0.46 10*3/uL Low 1.00-4.00 [facility] Comment on above: Order Comment: Speci men Type: BLOOD SPECIMENOrdering Facility: [facility] Address: [address] [place] [address] Performed By: #### 5 7021-8 ####[facility] LABCLIA [id number] [place] [address] Lymphocytes/100 WBC (Bld) 10.5 % Normal [facility] Comment on above: Order Comment: Speci men Type: BLOOD SPECIMENOrdering Facility: [facility] Address: [address] [place] [address] Performed By: #### 5 7021-8 ####[facility] LABCLIA [id number] [place] [address] MCH (RBC) [Entitic mass] 30.8 pg Normal 26.0-34.0 [facility] Comment on above: Order Comment: Speci men Type: BLOOD SPECIMENOrdering Facility: [facility] Address: [address] [place] [address] Performed By: #### 5 7021-8 ####[facility] LABCLIA [id number] [place] [address] MCHC (RBC) [Mass/Vol] 34.8 g/dL Normal 30.5-36.0 [facility] Comment on above: Order Comment: Speci men Type: BLOOD SPECIMENOrdering Facility: [facility] Address: [address] [place] [address] Performed By: #### 5 7021-8 ####[facility] LABCLIA [id number] [place] [address] MCV (RBC) [Entitic vol] 88.4 fL Normal 80.0-100.0 [facility] Comment on above: Order Comment: Speci men Type: BLOOD SPECIMENOrdering Facility: [facility] Address: [address] [place] [address] Performed By: #### 5 7021-8 ####[facility] LABCLIA [id number] [place] [address] Monocytes (Bld) [#/Vol] 0.82 10*3/uL Normal <0.87 [facility] Comment on above: Order Comment: Speci men Type: BLOOD SPECIMENOrdering Facility: [facility] Address: [address] [place] [address] Performed By: #### 5 7021-8 ####[facility] LABCLIA [id number] [place] [address] Monocytes/100 WBC (Bld) 18.7 % Normal [facility] Comment on above: Order Comment: Speci men Type: BLOOD SPECIMENOrdering Facility: [facility] Address: [address] [place] [address] Performed By: #### 5 7021-8 ####[facility] LABCLIA [id number] [place] [address] Neutrophils (Bld) [#/Vol] 2.78 10*3/uL Normal 1.45-7.50 [facility] Comment on above: Order Comment: Speci men Type: BLOOD SPECIMENOrdering Facility: [facility] Address: [address] [place] [address] Performed By: #### 5 7021-8 ####[facility] LABCLIA [id number] [place] [address] Neutrophils/100 WBC (Bld) 63.3 % Normal [facility] Comment on above: Order Comment: Speci men Type: BLOOD SPECIMENOrdering Facility: [facility] Address: [address] [place] [address] Performed By: #### 5 7021-8 ####[facility] LABCLIA [id number] [place] [address] Nucleated RBC (Bld) [#/Vol] 10*3/uL Normal <0.01 [facility] Comment on above: Order Comment: Speci men Type: BLOOD SPECIMENOrdering Facility: [facility] Address: [address] [place] [address] Performed By: #### 5 7021-8 ####[facility] LABCLIA [id number] [place] [address] Nucleated RBC/100 WBC (Bld) [Ratio] 0.0 /100 WBC Normal [facility] Comment on above: Order Comment: Speci men Type: BLOOD SPECIMENOrdering Facility: [facility] Address: [address] [place] [address] Performed By: #### 5 7021-8 ####[facility] LABCLIA [id number] [place] [address] Platelet mean volume (Bld) [Entitic vol] 10.0 fL Normal 9.0-12.7 [facility] Comment on above: Order Comment: Speci men Type: BLOOD SPECIMENOrdering Facility: [facility] Address: [address] [place] [address] Performed By: #### 5 7021-8 ####[facility] LABCLIA [id number] [place] [address] Platelets (Bld) [#/Vol] 165 10*3/uL Normal 150-400 [facility] Comment on above: Order Comment: Speci men Type: BLOOD SPECIMENOrdering Facility: [facility] Address: [address] [place] [address] Performed By: #### 5 7021-8 ####[facility] LABCLIA [id number] [place] [address] RBC (Bld) [#/Vol] 4.48 10*6/uL Normal 4.20-6.00 [facility] Comment on above: Order Comment: Speci men Type: BLOOD SPECIMENOrdering Facility: [facility] Address: [address] [place] [address] Performed By: #### 5 7021-8 ####[facility] LABCLIA [id number] [place] [address] WBC (Bld) [#/Vol] 4.39 10*3/uL Normal 3.70-11.00 [facility] Comment on above: Order Comment: Speci men Type: BLOOD SPECIMENOrdering Facility: [facility] Address: [address] [place] [address] Performed By: #### 5 7021-8 ####[facility] LABCLIA [id number] [place] [address] CNOVSPon 10-28-2023 CNOVSP Normal [facility] Comprehensive metabolic 2000 panelon 10-28-2023 Albumin [Mass/Vol] 4.2 g/dL Normal 3.9-4.9 [facility] Comment on above: Order Comment: Speci men Type: BLOOD SPECIMENOrdering Facility: [facility] Address: [address] [place] [address] Performed By: #### 2 4323-8 ####[facility] LABCLIA [id number] [place] [address] ALP [Catalytic activity/Vol] 163 U/L High 38-113 [facility] Comment on above: Order Comment: Speci men Type: BLOOD SPECIMENOrdering Facility: [facility] Address: [address] [place] [address] Performed By: #### 2 4323-8 ####[facility] LABCLIA [id number] [place] [address] ALT [Catalytic activity/Vol] 19 U/L Normal 10-54 [facility] Comment on above: Order Comment: Speci men Type: BLOOD SPECIMENOrdering Facility: [facility] Address: [address] [place] [address] Performed By: #### 2 4323-8 ####[facility] LABCLIA [id number] [place] [address] Anion gap [Moles/Vol] 15 mmol/L Normal 9-18 [facility] Comment on above: Order Comment: Speci men Type: BLOOD SPECIMENOrdering Facility: [facility] Address: [address] [place] [address] Performed By: #### 2 4323-8 ####[facility] LABCLIA [id number] [place] [address] AST [Catalytic activity/Vol] 19 U/L Normal 14-40 [facility] Comment on above: Order Comment: Speci men Type: BLOOD SPECIMENOrdering Facility: [facility] Address: [address] [place] [address] Performed By: #### 2 4323-8 ####[facility] LABCLIA [id number] [place] [address] Bilirubin [Mass/Vol] 0.3 mg/dL Normal 0.2-1.3 [facility] Comment on above: Order Comment: Speci men Type: BLOOD SPECIMENOrdering Facility: [facility] Address: [address] [place] [address] Performed By: #### 2 4323-8 ####[facility] LABCLIA [id number] [place] [address] Calcium [Mass/Vol] 9.7 mg/dL Normal 8.5-10.2 [facility] Comment on above: Order Comment: Speci men Type: BLOOD SPECIMENOrdering Facility: [facility] Address: [address] [place] [address] Performed By: #### 2 4323-8 ####[facility] LABCLIA [id number] [place] [address] Chloride [Moles/Vol] 104 mmol/L Normal 97-105 [facility] Comment on above: Order Comment: Speci men Type: BLOOD SPECIMENOrdering Facility: [facility] Address: [address] [id number] Performed By: #### 2 4323-8 ####[facility] LABCLIA [id number] [place] [address] CO2 [Moles/Vol] 21 mmol/L Low 22-30 [facility] Comment on above: Order Comment: Speci men Type: BLOOD SPECIMENOrdering Facility: [facility] Address: [address] [place] [address] Performed By: #### 2 4323-8 ####[facility] LABCLIA [id number] [place] [address] Creatinine [Mass/Vol] 0.96 mg/dL Normal 0.73-1.22 [facility] Comment on above: Order Comment: Speci men Type: BLOOD SPECIMENOrdering Facility: [facility] Address: [address] [place] [address] Performed By: #### 2 4323-8 ####[facility] LABCLIA [id number] [place] [address] Creatinine and Glomerular filtration rate.predicted panel (S/P/Bld) 87 mL/min/1.73m??? Normal >=60 [facility] Comment on above: Order Comment: Speci men Type: BLOOD SPECIMENOrdering Facility: [facility] Address: [address] [place] [address] Result Comment: Carol mated Glomerular Filtration Rate (eGFR) is calculated using the 2020 CKD-EPI creatinine equation. This equation utilizes serum creatinine, sex, and age as parameters. The creatinine assay has traceable calibration to isotope dilution-mass spectrometry. Refer to KDIGO guidelines for clinical interpretation. In patients with unstable renal function, e.g. those with acute kidney injury, the eGFR may not accurately reflect actual GFR. Performed By: #### 2 4323-8 ####[facility] LABCLIA [id number] [place] [address] Glucose [Mass/Vol] 103 mg/dL High 74-99 [facility] Comment on above: Order Comment: Speci men Type: BLOOD SPECIMENOrdering Facility: [facility] Address: [address] [place], [place] [address] Result Comment: The [place] Diabetes Association (ADA) provides guidance for cutoff values for fasting glucose and random glucose. The ADA defines fasting as no caloric intake for at least 8 hours. Fasting plasma glucose results between 100 to 125 mg/dL indicate increased risk for diabetes (prediabetes).Fasting plasma glucose results greater than or equal to 126 mg/dL meet the criteria for diagnosis of diabetes. In the absence of unequivocal hyperglycemia, results should be confirmed by repeat testing. In a patient with classic symptoms of hyperglycemia or hyperglycemic crisis, random plasma glucose results greater than or equal to 200 mg/dL meet the criteria for diagnosis of diabetes.Reference: Standards of Medical Care in Diabetes 2016, [place] [employer]. Diabetes Care. 2016.39(Suppl 1). Performed By: #### 2 4323-8 ####[facility] LABCLIA [id number] [place] [address] Potassium [Moles/Vol] 4.3 mmol/L Normal 3.7-5.1 [facility] Comment on above: Order Comment: Speci men Type: BLOOD SPECIMENOrdering Facility: [facility] Address: [address] [place] [address] Performed By: #### 2 4323-8 ####[facility] LABCLIA [id number] [place] [address] Protein [Mass/Vol] 7.1 g/dL Normal 6.3-8.0 [facility] Comment on above: Order Comment: Speci men Type: BLOOD SPECIMENOrdering Facility: [facility] Address: [address] [place], [place] [address] Performed By: #### 2 4323-8 ####[facility] LABCLIA [id number] [place] [address] Sodium [Moles/Vol] 140 mmol/L Normal 136-144 [facility] Comment on above: Order Comment: Speci men Type: BLOOD SPECIMENOrdering Facility: [facility] Address: [address] [place] [address] Performed By: #### 2 4323-8 ####[facility] LABCLIA [id number] [place] [address] Urea nitrogen [Mass/Vol] 15 mg/dL Normal 9-24 [facility] Comment on above: Order Comment: Speci men Type: BLOOD SPECIMENOrdering Facility: [facility] Address: [address] [place] [address] Performed By: #### 2 4323-8 ####[facility] LABCLIA [id number] [place] [address] CNPNon 10-23-2023 CNPN Normal [facility] CBC W Auto Differential pane l (Bld)on 09-30-2023 Basophils (Bld) [#/Vol] 0.06 10*3/uL Normal <0.11 [facility] Comment on above: Order Comment: Speci men Type: BLOOD SPECIMENOrdering Facility: [facility] Address: [address] [place] [address] Performed By: #### 5 7021-8 ####[facility] LABCLIA [id number] [place] [address] Basophils/100 WBC (Bld) 1.1 % Normal [facility] Comment on above: Order Comment: Speci men Type: BLOOD SPECIMENOrdering Facility: [facility] Address: [address] [place] [address] Performed By: #### 5 7021-8 ####[facility] LABCLIA [id number] [place] [address] Differential cell count method Nom (Bld) Auto Normal [facility] Comment on above: Order Comment: Speci men Type: BLOOD SPECIMENOrdering Facility: [facility] Address: [address] [place] [address] Performed By: #### 5 7021-8 ####[facility] LABCLIA [id number] [place] [address] Eosinophils (Bld) [#/Vol] 0.24 10*3/uL Normal <0.46 [facility] Comment on above: Order Comment: Speci men Type: BLOOD SPECIMENOrdering Facility: [facility] Address: [address] [place] [address] Performed By: #### 5 7021-8 ####[facility] LABCLIA [id number] [place] [address] Eosinophils/100 WBC (Bld) 4.4 % Normal [facility] Comment on above: Order Comment: Speci men Type: BLOOD SPECIMENOrdering Facility: [facility] Address: [address] [place] [address] Performed By: #### 5 7021-8 ####[facility] LABCLIA [id number] [place] [address] Erythrocyte distribution width (RBC) [Ratio] 14.6 % Normal 11.5-15.0 [facility] Comment on above: Order Comment: Speci men Type: BLOOD SPECIMENOrdering Facility: [facility] Address: [address] [place] [address] Performed By: #### 5 7021-8 ####[facility] LABCLIA [id number] [place] [address] Hematocrit (Bld) [Volume fraction] 40.7 % Normal 39.0-51.0 [facility] Comment on above: Order Comment: Speci men Type: BLOOD SPECIMENOrdering Facility: [facility] Address: [address] [place] [address] Performed By: #### 5 7021-8 ####[facility] LABCLIA [id number] [place] [address] Hemoglobin (Bld) [Mass/Vol] 14.1 g/dL Normal 13.0-17.0 [facility] Comment on above: Order Comment: Speci men Type: BLOOD SPECIMENOrdering Facility: [facility] Address: [address] [place] [address] Performed By: #### 5 7021-8 ####[facility] LABCLIA [id number] [place] [address] Immature granulocytes (Bld) [#/Vol] 0.07 10*3/uL Normal <0.10 [facility] Comment on above: Order Comment: Speci men Type: BLOOD SPECIMENOrdering Facility: [facility] Address: [address] [place] [address] Performed By: #### 5 7021-8 ####[facility] LABCLIA [id number] [place] [address] Immature granulocytes/100 WBC (Bld) 1.3 % Normal [facility] Comment on above: Order Comment: Speci men Type: BLOOD SPECIMENOrdering Facility: [facility] Address: [address] [place] [address] Performed By: #### 5 7021-8 ####[facility] LABCLIA [id number] [place] [address] Lymphocytes (Bld) [#/Vol] 0.80 10*3/uL Low 1.00-4.00 [facility] Comment on above: Order Comment: Speci men Type: BLOOD SPECIMENOrdering Facility: [facility] Address: [address] [place] [address] Performed By: #### 5 7021-8 ####[facility] LABCLIA [id number] [place] [address] Lymphocytes/100 WBC (Bld) 14.7 % Normal [facility] Comment on above: Order Comment: Speci men Type: BLOOD SPECIMENOrdering Facility: [facility] Address: [address] [place] [address] Performed By: #### 5 7021-8 ####[facility] LABCLIA [id number] [place] [address] MCH (RBC) [Entitic mass] 30.5 pg Normal 26.0-34.0 [facility] Comment on above: Order Comment: Speci men Type: BLOOD SPECIMENOrdering Facility: [facility] Address: [address] [place] [address] Performed By: #### 5 7021-8 ####[facility] LABCLIA [id number] [place] [address] MCHC (RBC) [Mass/Vol] 34.6 g/dL Normal 30.5-36.0 [facility] Comment on above: Order Comment: Speci men Type: BLOOD SPECIMENOrdering Facility: [facility] Address: [address] [place] [address] Performed By: #### 5 7021-8 ####[facility] LABCLIA [id number] [place] [address] MCV (RBC) [Entitic vol] 87.9 fL Normal 80.0-100.0 [facility] Comment on above: Order Comment: Speci men Type: BLOOD SPECIMENOrdering Facility: [facility] Address: [address] [place] [address] Performed By: #### 5 7021-8 ####[facility] LABCLIA [id number] [place] [address] Monocytes (Bld) [#/Vol] 1.18 10*3/uL High <0.87 [facility] Comment on above: Order Comment: Speci men Type: BLOOD SPECIMENOrdering Facility: [facility] Address: [address] [place] [address] Performed By: #### 5 7021-8 ####[facility] LABCLIA [id number] [place] [address] Monocytes/100 WBC (Bld) 21.7 % Normal [facility] Comment on above: Order Comment: Speci men Type: BLOOD SPECIMENOrdering Facility: [facility] Address: [address] [place] [address] Performed By: #### 5 7021-8 ####[facility] LABCLIA [id number] [place] [address] Neutrophils (Bld) [#/Vol] 3.08 10*3/uL Normal 1.45-7.50 [facility] Comment on above: Order Comment: Speci men Type: BLOOD SPECIMENOrdering Facility: [facility] Address: [address] [place] [address] Performed By: #### 5 7021-8 ####[facility] LABCLIA [id number] [place] [address] Neutrophils/100 WBC (Bld) 56.8 % Normal [facility] Comment on above: Order Comment: Speci men Type: BLOOD SPECIMENOrdering Facility: [facility] Address: [address] [place] [address] Performed By: #### 5 7021-8 ####[facility] LABIA [id number] [place] [address] Nucleated RBC (Bld) [#/Vol] 10*3/uL Normal <0.01 [facility] Comment on above: Order Comment: Speci men Type: BLOOD SPECIMENOrdering Facility: [facility] Address: [address] [place] [address] Performed By: #### 5 7021-8 ####[facility] LABIA [id number] [place] [address] Nucleated RBC/100 WBC (Bld) [Ratio] 0.0 /100 WBC Normal [facility] [facility] Comment on above: Order Comment: Speci men Type: BLOOD SPECIMENOrdering Facility: [facility] Address: [address] [place] [address] Performed By: #### 5 7021-8 ####[facility] LABIA [id number] [place] [address] Platelet mean volume (Bld) [Entitic vol] 9.1 fL Normal 9.0-12.7 [facility] Comment on above: Order Comment: Speci men Type: BLOOD SPECIMENOrdering Facility: [facility] Address: [address] [place] [address] Performed By: #### 5 7021-8 ####[facility] LABCLIA [id number] [place] [address] Platelets (Bld) [#/Vol] 194 10*3/uL Normal 150-400 [facility] Comment on above: Order Comment: Speci men Type: BLOOD SPECIMENOrdering Facility: [facility] Address: [address] [place] [address] Performed By: #### 5 7021-8 ####[facility] LABCLIA [id number] [place] [address] RBC (Bld) [#/Vol] 4.63 10*6/uL Normal 4.20-6.00 [facility] Comment on above: Order Comment: Speci men Type: BLOOD SPECIMENOrdering Facility: [facility] Address: [address] [place] [address] Performed By: #### 5 7021-8 ####[facility] LABCLIA [id number] [place] [address] WBC (Bld) [#/Vol] 5.43 10*3/uL Normal 3.70-11.00 [facility] Comment on above: Order Comment: Speci men Type: BLOOD SPECIMENOrdering Facility: [facility] Address: [address] [place] [address] Performed By: #### 5 7021-8 ####[facility] LABCLIA [id number] [place] [address] Basophils (Bld) [#/Vol] 0.06 10*3/uL <0.11 k/uL [facility] Basophils/100 WBC (Bld) 1.1 % [facility] Differential cell count method Nom (Bld) Auto [facility] Eosinophils (Bld) [#/Vol] 0.24 10*3/uL <0.46 k/uL [facility] Eosinophils/100 WBC (Bld) 4.4 % [facility] Erythrocyte distribution width (RBC) [Ratio] 14.6 % 11.5 - 15.0 % [facility] Hematocrit (Bld) [Volume fraction] 40.7 % 39.0 - 51.0 % [facility] Hemoglobin (Bld) [Mass/Vol] 14.1 g/dL 13.0 - 17.0 g/dL [facility] Immature granulocytes (Bld) [#/Vol] 0.07 10*3/uL <0.10 k/uL [facility] Immature granulocytes/100 WBC (Bld) 1.3 % [facility] Lymphocytes (Bld) [#/Vol] 0.80 10*3/uL Low 1.00 - 4.00 k/uL [facility] Lymphocytes/100 WBC (Bld) 14.7 % [facility] MCH (RBC) [Entitic mass] 30.5 pg 26. 0 - 34.0 pg [facility] MCHC (RBC) [Mass/Vol] 34.6 g/dL 30.5 - 36.0 g/dL [facility] MCV (RBC) [Entitic vol] 87.9 fL 80.0 - 100.0 fL [facility] Monocytes (Bld) [#/Vol] 1.18 10*3/uL High <0.87 k/uL [facility] Monocytes/100 WBC (Bld) 21.7 % [facility] Neutrophils (Bld) [#/Vol] 3.08 10*3/uL 1.45 - 7.50 k/uL [facility] Neutrophils/100 WBC (Bld) 56.8 % [facility] Nucleated RBC (Bld) [#/Vol] <0.01 k/uL [facility] Nucleated RBC/100 WBC (Bld) [Ratio] 0.0 /100 WBC [facility] Platelet mean volume (Bld) [Entitic vol] 9.1 fL 9.0 - 12.7 fL [facility] Platelets (Bld) [#/Vol] 194 10*3/uL 150 - 400 k/uL [facility] RBC (Bld) [#/Vol] 4.63 10*6/uL 4.20 - 6.0 0 m/uL [facility] WBC (Bld) [#/Vol] 5.43 10*3/uL 3.70 - 11. 00 k/uL [facility] CNOVSPon 09-30-2023 CNOVSP Normal [facility] Comprehensive metabolic 2000 panelon 09-30-2023 Albumin [Mass/Vol] 4.3 g/dL Normal 3.9-4.9 [facility] Comment on above: Order Comment: Speci men Type: BLOOD SPECIMENOrdering Facility: [facility] Address: [address] [place] [address] Performed By: #### 2 4323-8, 3084- ####[facility] LABCLIA [id number] [place] [address] ALP [Catalytic activity/Vol] 175 U/L High 38-113 [facility] Comment on above: Order Comment: Speci men Type: BLOOD SPECIMENOrdering Facility: [facility] Address: [address] [place] [address] Performed By: #### 2 4323-8, 308- ####[facility] LABCLIA [id number] [place] [address] ALT [Catalytic activity/Vol] 18 U/L Normal 10-54 [facility] Comment on above: Order Comment: Speci men Type: BLOOD SPECIMENOrdering Facility: [facility] Address: [address] [place] [address] Performed By: #### 2 4323-8, 308- ####[facility] LABIA [id number] [place] [address] Anion gap [Moles/Vol] 11 mmol/L Normal 9-18 [facility] Comment on above: Order Comment: Speci men Type: BLOOD SPECIMENOrdering Facility: [facility] Address: [address] [place] [address] Performed By: #### 2 4323-8, 3084- ####[facility] LABCLIA [id number] [place] [address] AST [Catalytic activity/Vol] 16 U/L Normal 14-40 [facility] Comment on above: Order Comment: Speci men Type: BLOOD SPECIMENOrdering Facility: [facility] Address: [address] [id number] Performed By: #### 2 4323-8, 3083- ####[facility] LABCLIA [id number] [place] [address] Bilirubin [Mass/Vol] 0.2 mg/dL Normal 0.2-1.3 [facility] Comment on above: Order Comment: Speci men Type: BLOOD SPECIMENOrdering Facility: [facility] Address: [address] [place] [address] Performed By: #### 2 4323-8, 3083-11 ####[facility] LABCLIA [id number] [place] [address] Calcium [Mass/Vol] 9.5 mg/dL Normal 8.5-10.2 [facility] Comment on above: Order Comment: Speci men Type: BLOOD SPECIMENOrdering Facility: [facility] Address: [address] [place] [address] Performed By: #### 2 4323-8, 3083-11 ####[facility] LABCLIA [id number] [place] [address] Chloride [Moles/Vol] 104 mmol/L Normal 97-105 [facility] Comment on above: Order Comment: Speci men Type: BLOOD SPECIMENOrdering Facility: [facility] Address: [address] [id number] Performed By: #### 2 4323-8, 3083-11 ####[facility] LABCLIA [id number] [place] [address] CO2 [Moles/Vol] 24 mmol/L Normal 22-30 [facility] Comment on above: Order Comment: Speci men Type: BLOOD SPECIMENOrdering Facility: [facility] Address: [address] [id number] Performed By: #### 2 4323-8, 3083- ####[facility] LABCLIA [id number] [place] [address] Creatinine [Mass/Vol] 0.97 mg/dL Normal 0.73-1.22 [facility] Comment on above: Order Comment: Sara randle Type: BLOOD SPECIMENOrdering Facility: [facility] Address: [address] [place] [address] Performed By: #### 2 4323-8, 3083-1 ####[facility] LABCLIA [id number] [place] [address] Creatinine and Glomerular filtration rate.predicted panel (S/P/Bld) 86 mL/min/1.73m??? Normal >=60 [facility] Comment on above: Order Comment: Sara randle Type: BLOOD SPECIMENOrdering Facility: [facility] Address: [address] [place] [address] Result Comment: Carol mated Glomerular Filtration Rate (eGFR) is calculated using the 2020 CKD-EPI creatinine equation. This equation utilizes serum creatinine, sex, and age as parameters. The creatinine assay has traceable calibration to isotope dilution-mass spectrometry. Refer to KDIGO guidelines for clinical interpretation. In patients with unstable renal function, e.g. those with acute kidney injury, the eGFR may not accurately reflect actual GFR. Performed By: #### 2 4323-8, 3083-11 ####[facility] LABCLIA [id number] [place] [address] Glucose [Mass/Vol] 101 mg/dL High 74-99 [facility] Comment on above: Order Comment: Sara randle Type: BLOOD SPECIMENOrdering Facility: [facility] Address: [address] [place] [address] Result Comment: The [place] Diabetes Association (ADA) provides guidance for cutoff values for fasting glucose and random glucose. The ADA defines fasting as no caloric intake for at least 8 hours. Fasting plasma glucose results between 100 to 125 mg/dL indicate increased risk for diabetes (prediabetes).Fasting plasma glucose results greater than or equal to 126 mg/dL meet the criteria for diagnosis of diabetes. In the absence of unequivocal hyperglycemia, results should be confirmed by repeat testing. In a patient with classic symptoms of hyperglycemia or hyperglycemic crisis, random plasma glucose results greater than or equal to 200 mg/dL meet the criteria for diagnosis of diabetes.Reference: Standards of Medical Care in Diabetes 2016, [place] [employer]. Diabetes Care. 2016.39(Suppl 1). Performed By: #### 2 4323-8, 3083- ####[facility] LABCLIA [id number] [place] [address] Potassium [Moles/Vol] 4.2 mmol/L Normal 3.7-5.1 [facility] Comment on above: Order Comment: Speci men Type: BLOOD SPECIMENOrdering Facility: [facility] Address: [address] [place] [address] Performed By: #### 2 4323-8, 3083-11 ####[facility] LABCLIA [id number] [place] [address] Protein [Mass/Vol] 7.0 g/dL Normal 6.3-8.0 [facility] Comment on above: Order Comment: Speci men Type: BLOOD SPECIMENOrdering Facility: [facility] Address: [address] [place] [address] Performed By: #### 2 4323-8, 3083-11 ####[facility] LABIA [id number] [place] [address] Sodium [Moles/Vol] 139 mmol/L Normal 136-144 [facility] Comment on above: Order Comment: Speci men Type: BLOOD SPECIMENOrdering Facility: [facility] Address: [address] [place] [address] Performed By: #### 2 4323-8, 3083- ####[facility] LABCLIA [id number] [place] [address] Urea nitrogen [Mass/Vol] 25 mg/dL High 9-24 [facility] Comment on above: Order Comment: Speci men Type: BLOOD SPECIMENOrdering Facility: [facility] Address: [address] [place] [address] Performed By: #### 2 4323-8, 3084-1 ####[facility] LABCLIA [id number] [place] [address] Albumin [Mass/Vol] 4.3 g/dL 3.9 - 4.9 g/dL [facility] ALP [Catalytic activity/Vol] 175 U/L High 38 - 113 U/L [facility] ALT [Catalytic activity/Vol] 18 U/L 10 - 54 U/L [facility] Anion gap [Moles/Vol] 11 mmol/L 9 - 18 mmol/L [facility] AST [Catalytic activity/Vol] 16 U/L 14 - 40 U/L [facility] Bilirubin [Mass/Vol] 0.2 mg/dL 0.2 - 1 .3 mg/dL [facility] Calcium [Mass/Vol] 9.5 mg/dL 8.5 - 10. 2 mg/dL [facility] Chloride [Moles/Vol] 104 mmol/L 97 - 10 5 mmol/L [facility] CO2 [Moles/Vol] 24 mmol/L 22 - 30 mmol/L [facility] Creatinine [Mass/Vol] 0.97 mg/dL 0.73 - 1.22 mg/dL [facility] Estimated Glomerular Filtration Rate 86 mL/min/1.73m >=60 mL/min/1.73m [facility] Glucose [Mass/Vol] 101 mg/dL High 74 - 99 mg/dL [facility] Potassium [Moles/Vol] 4.2 mmol/L 3.7 - 5.1 mmol/L [facility] Protein [Mass/Vol] 7.0 g/dL 6.3 - 8.0 g/dL [facility] Sodium [Moles/Vol] 139 mmol/L 136 - 144 mmol/L [facility] Urea nitrogen [Mass/Vol] 25 mg/dL High 9 - 24 mg/d L [facility] URIC ACID BLOODon 09-30-2023 Urate [Mass/Vol] 7.2 mg/dL 4.0 - 8.1 mg/dL [facility] Urate SerPl-mCncon Urate [Mass/Vol] 7.2 mg/dL Normal 4.0-8.1 [facility] Comment on above: Order Comment: Speci men Type: BLOOD SPECIMENOrdering Facility: [facility] Address: [address] [place] [address] Performed By: #### 2 4323-8, 3084-1 ####[facility] LABCLIA [id number] [place] [address] NM PET/CT SKULL-THIGH SUBQon 09-23-2023 NM PET/CT SKULL-THIGH SUBQ Normal [facility] CBC W Auto Differential pane l (Bld)on 09-02-2023 Basophils (Bld) [#/Vol] 0.06 10*3/uL Normal <0.11 [facility] Comment on above: Order Comment: Speci men Type: BLOOD SPECIMENOrdering Facility: [facility] Address: [address] [place] [address] Performed By: #### 5 7021-8 ####[facility] LABCLIA [id number] [place] [address] Basophils/100 WBC (Bld) 1.1 % Normal [facility] Comment on above: Order Comment: Speci men Type: BLOOD SPECIMENOrdering Facility: [facility] Address: [address] [place] [address] Performed By: #### 5 7021-8 ####[facility] LABCLIA [id number] [place] [address] Differential cell count method Nom (Bld) Auto Normal [facility] Comment on above: Order Comment: Speci men Type: BLOOD SPECIMENOrdering Facility: [facility] Address: [address] [place] [address] Performed By: #### 5 7021-8 ####[facility] LABCLIA [id number] [place] [address] Eosinophils (Bld) [#/Vol] 0.21 10*3/uL Normal <0.46 [facility] Comment on above: Order Comment: Speci men Type: BLOOD SPECIMENOrdering Facility: [facility] Address: [address] [place] [address] Performed By: #### 5 7021-8 ####[facility] LABCLIA [id number] [place] [address] Eosinophils/100 WBC (Bld) 3.9 % Normal [facility] Comment on above: Order Comment: Speci men Type: BLOOD SPECIMENOrdering Facility: [facility] Address: [address] [place] [address] Performed By: #### 5 7021-8 ####[facility] LABCLIA [id number] [place] [address] Erythrocyte distribution width (RBC) [Ratio] 15.6 % High 11.5-15.0 [facility] Comment on above: Order Comment: Speci men Type: BLOOD SPECIMENOrdering Facility: [facility] Address: [address] [place] [address] Performed By: #### 5 7021-8 ####[facility] LABCLIA [id number] [place] [address] Hematocrit (Bld) [Volume fraction] 41.9 % Normal 39.0-51.0 [facility] Comment on above: Order Comment: Speci men Type: BLOOD SPECIMENOrdering Facility: [facility] Address: [address] [place] [address] Performed By: #### 5 7021-8 ####[facility] LABCLIA [id number] [place] [address] Hemoglobin (Bld) [Mass/Vol] 14.5 g/dL Normal 13.0-17.0 [facility] Comment on above: Order Comment: Speci men Type: BLOOD SPECIMENOrdering Facility: [facility] Address: [address] [place] [address] Performed By: #### 5 7021-8 ####[facility] LABCLIA [id number] [place] [address] Immature granulocytes (Bld) [#/Vol] 0.04 10*3/uL Normal <0.10 [facility] Comment on above: Order Comment: Speci men Type: BLOOD SPECIMENOrdering Facility: [facility] Address: [address] [place] [address] Performed By: #### 5 7021-8 ####[facility] LABCLIA [id number] [place] [address] Immature granulocytes/100 WBC (Bld) 0.7 % Normal [facility] Comment on above: Order Comment: Speci men Type: BLOOD SPECIMENOrdering Facility: [facility] Address: [address] [place] [address] Performed By: #### 5 7021-8 ####[facility] LABCLIA [id number] [place] [address] Lymphocytes (Bld) [#/Vol] 0.45 10*3/uL Low 1.00-4.00 [facility] Comment on above: Order Comment: Speci men Type: BLOOD SPECIMENOrdering Facility: [facility] Address: [address] [place] [address] Performed By: #### 5 7021-8 ####[facility] LABCLIA [id number] [place] [address] Lymphocytes/100 WBC (Bld) 8.4 % Normal [facility] Comment on above: Order Comment: Speci men Type: BLOOD SPECIMENOrdering Facility: [facility] Address: [address] [place] [address] Performed By: #### 5 7021-8 ####[facility] LABCLIA [id number] [place] [address] MCH (RBC) [Entitic mass] 30.1 pg Normal 26.0-34.0 [facility] Comment on above: Order Comment: Speci men Type: BLOOD SPECIMENOrdering Facility: [facility] Address: [address] [place] [address] Performed By: #### 5 7021-8 ####[facility] LABCLIA [id number] [place] [address] MCHC (RBC) [Mass/Vol] 34.6 g/dL Normal 30.5-36.0 [facility] Comment on above: Order Comment: Speci men Type: BLOOD SPECIMENOrdering Facility: [facility] Address: [address] [place] [address] Performed By: #### 5 7021-8 ####[facility] LABCLIA [id number] [place] [address] MCV (RBC) [Entitic vol] 86.9 fL Normal 80.0-100.0 [facility] Comment on above: Order Comment: Speci men Type: BLOOD SPECIMENOrdering Facility: [facility] Address: [address] [place] [address] Performed By: #### 5 7021-8 ####[facility] LABCLIA [id number] [place] [address] Monocytes (Bld) [#/Vol] 0.92 10*3/uL High <0.87 [facility] Comment on above: Order Comment: Speci men Type: BLOOD SPECIMENOrdering Facility: [facility] Address: [address] [place] [address] Performed By: #### 5 7021-8 ####[facility] LABCLIA [id number] [place] [address] Monocytes/100 WBC (Bld) 17.2 % Normal [facility] Comment on above: Order Comment: Speci men Type: BLOOD SPECIMENOrdering Facility: [facility] Address: [address] [place] [address] Performed By: #### 5 7021-8 ####[facility] LABCLIA [id number] [place] [address] Neutrophils (Bld) [#/Vol] 3.66 10*3/uL Normal 1.45-7.50 [facility] Comment on above: Order Comment: Speci men Type: BLOOD SPECIMENOrdering Facility: [facility] Address: [address] [place] [address] Performed By: #### 5 7021-8 ####[facility] LABCLIA [id number] [place] [address] Neutrophils/100 WBC (Bld) 68.7 % Normal [facility] Comment on above: Order Comment: Speci men Type: BLOOD SPECIMENOrdering Facility: [facility] Address: [address] [place] [address] Performed By: #### 5 7021-8 ####[facility] LABCLIA [id number] [place] [address] Nucleated RBC (Bld) [#/Vol] 10*3/uL Normal <0.01 [facility] Comment on above: Order Comment: Speci men Type: BLOOD SPECIMENOrdering Facility: [facility] Address: [address] [place] [address] Performed By: #### 5 7021-8 ####[facility] LABCLIA [id number] [place] [address] Nucleated RBC/100 WBC (Bld) [Ratio] 0.0 /100 WBC Normal [facility] Comment on above: Order Comment: Speci men Type: BLOOD SPECIMENOrdering Facility: [facility] Address: [address] [place] [address] Performed By: #### 5 7021-8 ####[facility] LABCLIA [id number] [place] [address] Platelet mean volume (Bld) [Entitic vol] 9.7 fL Normal 9.0-12.7 [facility] Comment on above: Order Comment: Speci men Type: BLOOD SPECIMENOrdering Facility: [facility] Address: [address] [place] [address] Performed By: #### 5 7021-8 ####[facility] LABCLIA [id number] [place] [address] Platelets (Bld) [#/Vol] 160 10*3/uL Normal 150-400 [facility] Comment on above: Order Comment: Speci men Type: BLOOD SPECIMENOrdering Facility: [facility] Address: [address] [place] [address] Performed By: #### 5 7021-8 ####[facility] LABIA [id number] [place] [address] RBC (Bld) [#/Vol] 4.82 10*6/uL Normal 4.20-6.00 [facility] Comment on above: Order Comment: Speci men Type: BLOOD SPECIMENOrdering Facility: [facility] Address: [address] [place] [address] Performed By: #### 5 7021-8 ####[facility] LABIA [id number] [place] [address] WBC (Bld) [#/Vol] 5.34 10*3/uL Normal 3.70-11.00 [facility] Comment on above: Order Comment: Speci men Type: BLOOD SPECIMENOrdering Facility: [facility] Address: [address] [place] [address] Performed By: #### 5 7021-8 ####[facility] LABIA [id number] [place] [address] CNOVSPon 09-02-2023 CNOVSP Normal [facility] Comprehensive metabolic 2000 panelon 09-02-2023 Albumin [Mass/Vol] 4.3 g/dL Normal 3.9-4.9 [facility] Comment on above: Order Comment: Speci men Type: BLOOD SPECIMENOrdering Facility: [facility] Address: [address] [place] [address] Performed By: #### 3 084-1, 06725-4 ####[facility] LABIA [id number] [place] [address] ALP [Catalytic activity/Vol] 162 U/L High 38-113 [facility] Comment on above: Order Comment: Speci men Type: BLOOD SPECIMENOrdering Facility: [facility] Address: [address] [place] [address] Performed By: #### 3 084-1, 53662-3 ####[facility] LABCLIA [id number] [place] [address] ALT [Catalytic activity/Vol] 20 U/L Normal 10-54 [facility] Comment on above: Order Comment: Speci men Type: BLOOD SPECIMENOrdering Facility: [facility] Address: [address] [place] [address] Performed By: #### 3 084-1, ####[facility] LABCLIA [id number] [place] [address] Anion gap [Moles/Vol] 10 mmol/L Normal 9-18 [facility] Comment on above: Order Comment: Speci men Type: BLOOD SPECIMENOrdering Facility: [facility] Address: [address] [place] [address] Performed By: #### 3 084-1, ####[facility] LABCLIA [id number] [place] [address] AST [Catalytic activity/Vol] 25 U/L Normal 14-40 [facility] Comment on above: Order Comment: Speci men Type: BLOOD SPECIMENOrdering Facility: [facility] Address: [address] [place] [address] Performed By: #### 3 084-1, 48775-3 ####[facility] LABCLIA [id number] [place] [address] Bilirubin [Mass/Vol] 0.3 mg/dL Normal 0.2-1.3 [facility] Comment on above: Order Comment: Speci men Type: BLOOD SPECIMENOrdering Facility: [facility] Address: [address] [place] [address] Performed By: #### 3 084-1, 36961-6 ####[facility] LABCLIA [id number] [place] [address] Calcium [Mass/Vol] 9.7 mg/dL Normal 8.5-10.2 [facility] Comment on above: Order Comment: Speci men Type: BLOOD SPECIMENOrdering Facility: [facility] Address: [address] [place] [address] Performed By: #### 3 084-1, ####[facility] LABCLIA [id number] [place] [address] Chloride [Moles/Vol] 103 mmol/L Normal 97-105 [facility] Comment on above: Order Comment: Speci men Type: BLOOD SPECIMENOrdering Facility: [facility] Address: [address] [place] [address] Performed By: #### 3 084-1, ####[facility] LABCLIA [id number] [place] [address] CO2 [Moles/Vol] 26 mmol/L Normal 22-30 [facility] Comment on above: Order Comment: Speci men Type: BLOOD SPECIMENOrdering Facility: [facility] Address: [address] [place] [address] Performed By: #### 3 084-1, ####[facility] LABCLIA [id number] [place] [address] Creatinine [Mass/Vol] 0.98 mg/dL Normal 0.73-1.22 [facility] Comment on above: Order Comment: Speci men Type: BLOOD SPECIMENOrdering Facility: [facility] Address: [address] [place] [address] Performed By: #### 3 084-1, ####[facility] LABIA [id number] [place] [address] Creatinine and Glomerular filtration rate.predicted panel (S/P/Bld) 85 mL/min/1.73m??? Normal >=60 [facility] Comment on above: Order Comment: Speci men Type: BLOOD SPECIMENOrdering Facility: [facility] Address: [address] [place] [address] Result Comment: Carol mated Glomerular Filtration Rate (eGFR) is calculated using the 2020 CKD-EPI creatinine equation. This equation utilizes serum creatinine, sex, and age as parameters. The creatinine assay has traceable calibration to isotope dilution-mass spectrometry. Refer to KDIGO guidelines for clinical interpretation. In patients with unstable renal function, e.g. those with acute kidney injury, the eGFR may not accurately reflect actual GFR. Performed By: #### 3 [id number], 20555-0 ####[facility] LABCLIA [id number] [place] [address] Glucose [Mass/Vol] 104 mg/dL High 74-99 [facility] Comment on above: Order Comment: Sara randle Type: BLOOD SPECIMENOrdering Facility: [facility] Address: [address] [place] [address] Result Comment: The [place] [employer] (ADA) provides guidance for cutoff values for fasting glucose and random glucose. The ADA defines fasting as no caloric intake for at least 8 hours. Fasting plasma glucose results between 100 to 125 mg/dL indicate increased risk for diabetes (prediabetes).Fasting plasma glucose results greater than or equal to 126 mg/dL meet the criteria for diagnosis of diabetes. In the absence of unequivocal hyperglycemia, results should be confirmed by repeat testing. In a patient with classic symptoms of hyperglycemia or hyperglycemic crisis, random plasma glucose results greater than or equal to 200 mg/dL meet the criteria for diagnosis of diabetes.Reference: Standards of Medical Care in Diabetes 2016, [place] [employer]. Diabetes Care. 2016.39(Suppl 1). Performed By: #### 3 084-1, 81919-9 ####[facility] LABCLIA [id number] [place] [address] Potassium [Moles/Vol] 4.3 mmol/L Normal 3.7-5.1 [facility] Comment on above: Order Comment: Sara randle Type: BLOOD SPECIMENOrdering Facility: [facility] Address: [address] [id number] Performed By: #### 3 084-1, 08739-4 ####[facility] LABCLIA [id number] [place] [address] Protein [Mass/Vol] 7.3 g/dL Normal 6.3-8.0 [facility] Comment on above: Order Comment: Speci men Type: BLOOD SPECIMENOrdering Facility: [facility] Address: [address] [place] [address] Performed By: #### 3 084-1, 39690-8 ####[facility] LABCLIA [id number] [place] [address] Sodium [Moles/Vol] 139 mmol/L Normal 136-144 [facility] Comment on above: Order Comment: Speci men Type: BLOOD SPECIMENOrdering Facility: [facility] Address: [address] [place] [address] Performed By: #### 3 084-1, 72299-0 ####[facility] LABIA [id number] [place] [address] Urea nitrogen [Mass/Vol] 19 mg/dL Normal 9-24 [facility] Comment on above: Order Comment: Speci men Type: BLOOD SPECIMENOrdering Facility: [facility] Address: [address] [place] [address] Performed By: #### 3 084-1, 66037-1 ####[facility] LABIA [id number] [place] [address] Urate SerPl-ncon 3 Urate [Mass/Vol] 6.4 mg/dL Normal 4.0-8.1 [facility] Comment on above: Order Comment: Speci men Type: BLOOD SPECIMENOrdering Facility: [facility] Address: [address] [place] [address] Performed By: #### 3 084-1, 90214-3 ####[facility] LABCLIA [id number] [place] [address] Consultation Noteon 08-08-20 23 Consultation Note [id number]#1.0 0TIFF Normal [facility] CBC W Auto Differential pane l (Bld)on 08-05-2023 Basophils (Bld) [#/Vol] 0.08 10*3/uL Normal <0.11 [facility] Comment on above: Order Comment: Speci men Type: BLOOD SPECIMENOrdering Facility: [facility] Address: [address] [place] [address] Performed By: #### 5 7021-8 ####[facility] LABCLIA [id number] [place] [address] Basophils/100 WBC (Bld) 1.3 % Normal [facility] Comment on above: Order Comment: Speci men Type: BLOOD SPECIMENOrdering Facility: [facility] Address: [address] [place] [address] Performed By: #### 5 7021-8 ####[facility] LABCLIA [id number] [place] [address] Differential cell count method Nom (Bld) Auto Normal [facility] Comment on above: Order Comment: Speci men Type: BLOOD SPECIMENOrdering Facility: [facility] Address: [address] [place] [address] Performed By: #### 5 7021-8 ####[facility] LABCLIA [id number] [place] [address] Eosinophils (Bld) [#/Vol] 0.27 10*3/uL Normal <0.46 [facility] Comment on above: Order Comment: Speci men Type: BLOOD SPECIMENOrdering Facility: [facility] Address: [address] [place] [address] Performed By: #### 5 7021-8 ####[facility] LABCLIA [id number] [place] [address] Eosinophils/100 WBC (Bld) 4.4 % Normal [facility] Comment on above: Order Comment: Speci men Type: BLOOD SPECIMENOrdering Facility: [facility] Address: [address] [place] [address] Performed By: #### 5 7021-8 ####[facility] LABCLIA [id number] [place] [address] Erythrocyte distribution width (RBC) [Ratio] 16.2 % High 11.5-15.0 [facility] Comment on above: Order Comment: Speci men Type: BLOOD SPECIMENOrdering Facility: [facility] Address: [address] [place] [address] Performed By: #### 5 7021-8 ####[facility] LABCLIA [id number] [place] [address] Hematocrit (Bld) [Volume fraction] 41.6 % Normal 39.0-51.0 [facility] Comment on above: Order Comment: Speci men Type: BLOOD SPECIMENOrdering Facility: [facility] Address: [address] [place] [address] Performed By: #### 5 7021-8 ####[facility] LABIA [id number] [place] [address] Hemoglobin (Bld) [Mass/Vol] 13.8 g/dL Normal 13.0-17.0 [facility] Comment on above: Order Comment: Speci men Type: BLOOD SPECIMENOrdering Facility: [facility] Address: [address] [place] [address] Performed By: #### 5 7021-8 ####[facility] LABCLIA [id number] [place] [address] Immature granulocytes (Bld) [#/Vol] 0.06 10*3/uL Normal <0.10 [facility] Comment on above: Order Comment: Speci men Type: BLOOD SPECIMENOrdering Facility: [facility] Address: [address] [place] [address] Performed By: #### 5 7021-8 ####[facility] LABCLIA [id number] [place] [address] Immature granulocytes/100 WBC (Bld) 1.0 % Normal [facility] Comment on above: Order Comment: Speci men Type: BLOOD SPECIMENOrdering Facility: [facility] Address: [address] [place] [address] Performed By: #### 5 7021-8 ####[facility] LABCLIA [id number] [place] [address] Lymphocytes (Bld) [#/Vol] 0.46 10*3/uL Low 1.00-4.00 [facility] Comment on above: Order Comment: Speci men Type: BLOOD SPECIMENOrdering Facility: [facility] Address: [address] [place] [address] Performed By: #### 5 7021-8 ####[facility] LABCLIA [id number] [place] [address] Lymphocytes/100 WBC (Bld) 7.6 % Normal [facility] Comment on above: Order Comment: Speci men Type: BLOOD SPECIMENOrdering Facility: [facility] Address: [address] [place] [address] Performed By: #### 5 7021-8 ####[facility] LABCLIA [id number] [place] [address] MCH (RBC) [Entitic mass] 29.5 pg Normal 26.0-34.0 [facility] Comment on above: Order Comment: Speci men Type: BLOOD SPECIMENOrdering Facility: [facility] Address: [address] [place] [address] Performed By: #### 5 7021-8 ####[facility] LABCLIA [id number] [place] [address] MCHC (RBC) [Mass/Vol] 33.2 g/dL Normal 30.5-36.0 [facility] Comment on above: Order Comment: Speci men Type: BLOOD SPECIMENOrdering Facility: [facility] Address: [address] [address] Performed By: #### 5 7021-8 ####[facility] LABCLIA [id number] [place] [address] MCV (RBC) [Entitic vol] 88.9 fL Normal 80.0-100.0 [facility] Comment on above: Order Comment: Speci men Type: BLOOD SPECIMENOrdering Facility: [facility] Address: [address] [place] [address] Performed By: #### 5 7021-8 ####[facility] LABCLIA [id number] [place] [address] Monocytes (Bld) [#/Vol] 1.03 10*3/uL High <0.87 [facility] Comment on above: Order Comment: Speci men Type: BLOOD SPECIMENOrdering Facility: [facility] Address: [address] [place] [address] Performed By: #### 5 7021-8 ####[facility] LABCLIA [id number] [place] [address] Monocytes/100 WBC (Bld) 17.0 % Normal [facility] Comment on above: Order Comment: Speci men Type: BLOOD SPECIMENOrdering Facility: [facility] Address: [address] [place] [address] Performed By: #### 5 7021-8 ####[facility] LABCLIA [id number] [place] [address] Neutrophils (Bld) [#/Vol] 4.17 10*3/uL Normal 1.45-7.50 [facility] Comment on above: Order Comment: Speci men Type: BLOOD SPECIMENOrdering Facility: [facility] Address: [address] [place] [address] Performed By: #### 5 7021-8 ####[facility] LABCLIA [id number] [place] [address] Neutrophils/100 WBC (Bld) 68.7 % Normal [facility] Comment on above: Order Comment: Speci men Type: BLOOD SPECIMENOrdering Facility: [facility] Address: [address] [address] Performed By: #### 5 7021-8 ####[facility] LABCLIA [id number] [place] [address] Nucleated RBC (Bld) [#/Vol] 10*3/uL Normal <0.01 [facility] Comment on above: Order Comment: Speci men Type: BLOOD SPECIMENOrdering Facility: [facility] Address: [address] [place] [address] Performed By: #### 5 7021-8 ####[facility] LABCLIA [id number] [place] [address] Nucleated RBC/100 WBC (Bld) [Ratio] 0.0 /100 WBC Normal [facility] Comment on above: Order Comment: Speci men Type: BLOOD SPECIMENOrdering Facility: [facility] Address: [address] Performed By: #### 5 7021-8 ####[facility] LABCLIA [id number] [place] [address] Platelet mean volume (Bld) [Entitic vol] 10.3 fL Normal 9.0-12.7 [facility] Comment on above: Order Comment: Speci men Type: BLOOD SPECIMENOrdering Facility: [facility] Address: [address] Performed By: #### 5 7021-8 ####[facility] LABCLIA [id number] [place] [address] Platelets (Bld) [#/Vol] 143 10*3/uL Low 150-400 [facility] Comment on above: Order Comment: Speci men Type: BLOOD SPECIMENOrdering Facility: [facility] Address: [address] Performed By: #### 5 7021-8 ####[facility] LABCLIA [id number] [place] [address] RBC (Bld) [#/Vol] 4.68 10*6/uL Normal 4.20-6.00 [facility] Comment on above: Order Comment: Speci men Type: BLOOD SPECIMENOrdering Facility: [facility] Address: [address] [place], [place] [address] Performed By: #### 5 7021-8 ####[facility] LABCLIA [id number] [place] [address] WBC (Bld) [#/Vol] 6.07 10*3/uL Normal 3.70-11.00 [facility] Comment on above: Order Comment: Speci men Type: BLOOD SPECIMENOrdering Facility: [facility] Address: [address] [place] [address] Performed By: #### 5 7021-8 ####[facility] LABCLIA [id number] [place] [address] Basophils (Bld) [#/Vol] 0.08 10*3/uL <0.11 k/uL [facility] Basophils/100 WBC (Bld) 1.3 % C [facility] Differential cell count method Nom (Bld) Auto [facility] Eosinophils (Bld) [#/Vol] 0.27 10*3/uL <0.46 k/uL [facility] Eosinophils/100 WBC (Bld) 4.4 % [facility] Erythrocyte distribution width (RBC) [Ratio] 16.2 % High 11.5 - 15.0 % [facility] Hematocrit (Bld) [Volume fraction] 41.6 % 39.0 - 51.0 % [facility] Hemoglobin (Bld) [Mass/Vol] 13.8 g/dL 13.0 - 17.0 g/dL [facility] Immature granulocytes (Bld) [#/Vol] 0.06 10*3/uL <0.10 k/uL [facility] Immature granulocytes/100 WBC (Bld) 1.0 % [facility] Lymphocytes (Bld) [#/Vol] 0.46 10*3/uL Low 1.00 - 4.00 k/uL [facility] Lymphocytes/100 WBC (Bld) 7.6 % [facility] MCH (RBC) [Entitic mass] 29.5 pg 26. 0 - 34.0 pg [facility] MCHC (RBC) [Mass/Vol] 33.2 g/dL 30.5 - 36.0 g/dL [facility] MCV (RBC) [Entitic vol] 88.9 fL 80.0 - 100.0 fL [facility] Monocytes (Bld) [#/Vol] 1.03 10*3/uL High <0.87 k/uL [facility] Monocytes/100 WBC (Bld) 17.0 % [facility] Neutrophils (Bld) [#/Vol] 4.17 10*3/uL 1.45 - 7.50 k/uL [facility] Neutrophils/100 WBC (Bld) 68.7 % [facility] Nucleated RBC (Bld) [#/Vol] <0.01 k/uL [facility] Nucleated RBC/100 WBC (Bld) [Ratio] 0.0 /100 WBC [facility] Platelet mean volume (Bld) [Entitic vol] 10.3 fL 9.0 - 12.7 fL [facility] Platelets (Bld) [#/Vol] 143 10*3/uL Low 150 - 400 k/uL [facility] RBC (Bld) [#/Vol] 4.68 10*6/uL 4.20 - 6.0 0 m/uL [facility] WBC (Bld) [#/Vol] 6.07 10*3/uL 3.70 - 11. 00 k/uL [facility] CNOVSPon 08-05-2023 CNOVSP Normal [facility] Comprehensive metabolic 2000 panelon 08-05-2023 Albumin [Mass/Vol] 4.2 g/dL Normal 3.9-4.9 [facility] Comment on above: Order Comment: Speci men Type: BLOOD SPECIMENOrdering Facility: [facility] Address: [address] [place] [id number] Performed By: #### 2 4323-8 ####[facility] LABCLIA [id number] [place] [address] ALP [Catalytic activity/Vol] 198 U/L High 38-113 [facility] Comment on above: Order Comment: Speci men Type: BLOOD SPECIMENOrdering Facility: [facility] Address: [address] [place] [address] Performed By: #### 2 4323-8 ####[facility] LABCLIA [id number] [place] [address] ALT [Catalytic activity/Vol] 19 U/L Normal 10-54 [facility] Comment on above: Order Comment: Speci men Type: BLOOD SPECIMENOrdering Facility: [facility] Address: [address] [place] [address] Performed By: #### 2 4323-8 ####[facility] LABCLIA [id number] [place] [address] Anion gap [Moles/Vol] 9 mmol/L Normal 9-18 [facility] Comment on above: Order Comment: Speci men Type: BLOOD SPECIMENOrdering Facility: [facility] Address: [address] [address] Performed By: #### 2 4323-8 ####[facility] LABCLIA [id number] [place] [address] AST [Catalytic activity/Vol] 18 U/L Normal 14-40 [facility] Comment on above: Order Comment: Speci men Type: BLOOD SPECIMENOrdering Facility: [facility] Address: [address] [address] Performed By: #### 2 4323-8 ####[facility] LABCLIA [id number] [place] [address] Bilirubin [Mass/Vol] 0.2 mg/dL Normal 0.2-1.3 [facility] Comment on above: Order Comment: Speci men Type: BLOOD SPECIMENOrdering Facility: [facility] Address: [address] [place] [address] Performed By: #### 2 4323-8 ####[facility] LABCLIA [id number] [place] [address] Calcium [Mass/Vol] 9.5 mg/dL Normal 8.5-10.2 [facility] Comment on above: Order Comment: Speci men Type: BLOOD SPECIMENOrdering Facility: [facility] Address: [address] [place] [address] Performed By: #### 2 4323-8 ####[facility] LABCLIA [id number] [place] [address] Chloride [Moles/Vol] 107 mmol/L High 97-105 [facility] Comment on above: Order Comment: Speci men Type: BLOOD SPECIMENOrdering Facility: [facility] Address: [address] [place] [address] Performed By: #### 2 4323-8 ####[facility] LABCLIA [id number] [place] [address] CO2 [Moles/Vol] 23 mmol/L Normal 22-30 [facility] Comment on above: Order Comment: Speci men Type: BLOOD SPECIMENOrdering Facility: [facility] Address: [address] [place] [address] Performed By: #### 2 4323-8 ####[facility] LABCLIA [id number] [place] [address] Creatinine [Mass/Vol] 0.90 mg/dL Normal 0.73-1.22 [facility] Comment on above: Order Comment: Speci men Type: BLOOD SPECIMENOrdering Facility: [facility] Address: [address] [place] [address] Performed By: #### 2 4323-8 ####[facility] LABCLIA [id number] [place] [address] Creatinine and Glomerular filtration rate.predicted panel (S/P/Bld) 94 mL/min/1.73m??? Normal >=60 [facility] Comment on above: Order Comment: Sara randle Type: BLOOD SPECIMENOrdering Facility: [facility] Address: [address] [id number] Result Comment: Carol mated Glomerular Filtration Rate (eGFR) is calculated using the 2020 CKD-EPI creatinine equation. This equation utilizes serum creatinine, sex, and age as parameters. The creatinine assay has traceable calibration to isotope dilution-mass spectrometry. Refer to KDIGO guidelines for clinical interpretation. In patients with unstable renal function, e.g. those with acute kidney injury, the eGFR may not accurately reflect actual GFR. Performed By: #### 2 4323-8 ####[facility] LABIA [id number] [place] [address] Glucose [Mass/Vol] 104 mg/dL High 74-99 [facility] Comment on above: Order Comment: Sara randle Type: BLOOD SPECIMENOrdering Facility: [facility] Address: [address] [address] Result Comment: The [place] Diabetes Association (ADA) provides guidance for cutoff values for fasting glucose and random glucose. The ADA defines fasting as no caloric intake for at least 8 hours. Fasting plasma glucose results between 100 to 125 mg/dL indicate increased risk for diabetes (prediabetes).Fasting plasma glucose results greater than or equal to 126 mg/dL meet the criteria for diagnosis of diabetes. In the absence of unequivocal hyperglycemia, results should be confirmed by repeat testing. In a patient with classic symptoms of hyperglycemia or hyperglycemic crisis, random plasma glucose results greater than or equal to 200 mg/dL meet the criteria for diagnosis of diabetes.Reference: Standards of Medical Care in Diabetes 2016, [place] [employer]. Diabetes Care. 2016.39(Suppl 1). Performed By: #### 2 4323-8 ####[facility] LABIA [id number] [place] [address] Potassium [Moles/Vol] 4.2 mmol/L Normal 3.7-5.1 [facility] Comment on above: Order Comment: Sara randle Type: BLOOD SPECIMENOrdering Facility: [facility] Address: [address] Performed By: #### 2 4323-8 ####[facility] LABCLIA [id number] [place] [address] Protein [Mass/Vol] 6.8 g/dL Normal 6.3-8.0 [facility] Comment on above: Order Comment: Speci men Type: BLOOD SPECIMENOrdering Facility: [facility] Address: [address] [place] [address] Performed By: #### 2 4323-8 ####[facility] LABCLIA [id number] [place] [address] Sodium [Moles/Vol] 139 mmol/L Normal 136-144 [facility] Comment on above: Order Comment: Speci men Type: BLOOD SPECIMENOrdering Facility: [facility] Address: [address] [place] [address] Performed By: #### 2 4323-8 ####[facility] LABCLIA [id number] [place] [address] Urea nitrogen [Mass/Vol] 17 mg/dL Normal 9-24 [facility] Comment on above: Order Comment: Speci men Type: BLOOD SPECIMENOrdering Facility: [facility] Address: [address] [place] [address] Performed By: #### 2 4323-8 ####[facility] LABCLIA [id number] [place] [address] Albumin [Mass/Vol] 4.2 g/dL 3.9 - 4.9 g/dL [facility] ALP [Catalytic activity/Vol] 198 U/L High 38 - 113 U/L [facility] ALT [Catalytic activity/Vol] 19 U/L 10 - 54 U/L [facility] Anion gap [Moles/Vol] 9 mmol/L 9 - 18 mmol/L [facility] AST [Catalytic activity/Vol] 18 U/L 14 - 40 U/L [facility] Bilirubin [Mass/Vol] 0.2 mg/dL 0.2 - 1 .3 mg/dL [facility] Calcium [Mass/Vol] 9.5 mg/dL 8.5 - 10. 2 mg/dL [facility] Chloride [Moles/Vol] 107 mmol/L High 97 - 10 5 mmol/L [facility] CO2 [Moles/Vol] 23 mmol/L 22 - 30 mmol/L [facility] Creatinine [Mass/Vol] 0.90 mg/dL 0.73 - 1.22 mg/dL [facility] Estimated Glomerular Filtration Rate 94 mL/min/1.73m >=60 mL/min/1.73m [facility] Glucose [Mass/Vol] 104 mg/dL High 74 - 99 mg/dL [facility] Potassium [Moles/Vol] 4.2 mmol/L 3.7 - 5.1 mmol/L [facility] Protein [Mass/Vol] 6.8 g/dL 6.3 - 8.0 g/dL [facility] Sodium [Moles/Vol] 139 mmol/L 136 - 144 mmol/L [facility] Urea nitrogen [Mass/Vol] 17 mg/dL 9 - 24 mg/d L [facility] CNPNon 08-04-2023 CNPN Normal [facility] Basic metabolic 2000 panelon 07-22-2023 Anion gap [Moles/Vol] 13 mmol/L Normal 9-18 [facility] Comment on above: Order Comment: Speci men Type: BLOOD SPECIMENOrdering Facility: [facility] Address: [address] [address] Performed By: #### 2 4321-2, 308-1 ####[facility] LABCLIA [id number] [place] [address] Calcium [Mass/Vol] 9.7 mg/dL Normal 8.5-10.2 [facility] Comment on above: Order Comment: Speci men Type: BLOOD SPECIMENOrdering Facility: [facility] Address: [address] [phone] Performed By: #### 2 4321-2, 3084-1 ####[facility] LABCLIA [id number] [place] [address] Chloride [Moles/Vol] 105 mmol/L Normal 97-105 [facility] Comment on above: Order Comment: Speci men Type: BLOOD SPECIMENOrdering Facility: [facility] Address: [address] [address] Performed By: #### 2 4321-2, 3083- ####[facility] LABCLIA [id number] [place] [address] CO2 [Moles/Vol] 23 mmol/L Normal 22-30 [facility] Comment on above: Order Comment: Speci men Type: BLOOD SPECIMENOrdering Facility: [facility] Address: [address] [address] Performed By: #### 2 432-2, 3083-11 ####[facility] LABCLIA [id number] [place] [address] Creatinine [Mass/Vol] 0.96 mg/dL Normal 0.73-1.22 [facility] Comment on above: Order Comment: Speci men Type: BLOOD SPECIMENOrdering Facility: [facility] Address: [address] [address] Performed By: #### 2 432-2, 3083-11 ####[facility] LABCLIA [id number] [place] [address] Creatinine and Glomerular filtration rate.predicted panel (S/P/Bld) 87 mL/min/1.73m??? Normal >=60 [facility] Comment on above: Order Comment: Speci men Type: BLOOD SPECIMENOrdering Facility: [facility] Address: [address] [place] [address] Result Comment: Carol mated Glomerular Filtration Rate (eGFR) is calculated using the 2020 CKD-EPI creatinine equation. This equation utilizes serum creatinine, sex, and age as parameters. The creatinine assay has traceable calibration to isotope dilution-mass spectrometry. Refer to KDIGO guidelines for clinical interpretation. In patients with unstable renal function, e.g. those with acute kidney injury, the eGFR may not accurately reflect actual GFR. Performed By: #### 2 4321-2, 3083- ####[facility] LABCLIA [id number] [place] [address] Glucose [Mass/Vol] 101 mg/dL High 74-99 [facility] Comment on above: Order Comment: Speci men Type: BLOOD SPECIMENOrdering Facility: [facility] Address: [address] [phone] Result Comment: The [place] Diabetes [employer] (ADA) provides guidance for cutoff values for fasting glucose and random glucose. The ADA defines fasting as no caloric intake for at least 8 hours. Fasting plasma glucose results between 100 to 125 mg/dL indicate increased risk for diabetes (prediabetes).Fasting plasma glucose results greater than or equal to 126 mg/dL meet the criteria for diagnosis of diabetes. In the absence of unequivocal hyperglycemia, results should be confirmed by repeat testing. In a patient with classic symptoms of hyperglycemia or hyperglycemic crisis, random plasma glucose results greater than or equal to 200 mg/dL meet the criteria for diagnosis of diabetes.Reference: Standards of Medical Care in Diabetes 2016, [place] [employer]. Diabetes Care. 2016.39(Suppl 1). Performed By: #### 2 4321-2, 3083- ####[facility] LABCLIA [id number] [place] [address] Potassium [Moles/Vol] 4.7 mmol/L Normal 3.7-5.1 [facility] Comment on above: Order Comment: Speci men Type: BLOOD SPECIMENOrdering Facility: [facility] Address: [address] [phone] Performed By: #### 2 4321-2, 3083- ####[facility] LABCLIA [id number] [place] [address] Sodium [Moles/Vol] 141 mmol/L Normal 136-144 [facility] Comment on above: Order Comment: Speci men Type: BLOOD SPECIMENOrdering Facility: [facility] Address: [address] [id number] Performed By: #### 2 4321-2, 3083- ####[facility] LABCLIA [id number] [place] [address] Urea nitrogen [Mass/Vol] 14 mg/dL Normal 9-24 [facility] Comment on above: Order Comment: Speci men Type: BLOOD SPECIMENOrdering Facility: [facility] Address: [address] [id number] Performed By: #### 2 4321-2, 3084-1 ####[facility] LABCLIA [id number] [place] [address] Anion gap [Moles/Vol] 13 mmol/L 9 - 18 mmol/L [facility] Calcium [Mass/Vol] 9.7 mg/dL 8.5 - 10. 2 mg/dL [facility] Chloride [Moles/Vol] 105 mmol/L 97 - 10 5 mmol/L [facility] CO2 [Moles/Vol] 23 mmol/L 22 - 30 mmol/L [facility] Creatinine [Mass/Vol] 0.96 mg/dL 0.73 - 1.22 mg/dL [facility] Estimated Glomerular Filtration Rate 87 mL/min/1.73m >=60 mL/min/1.73m [facility] Glucose [Mass/Vol] 101 mg/dL High 74 - 99 mg/dL [facility] Potassium [Moles/Vol] 4.7 mmol/L 3.7 - 5.1 mmol/L [facility] Sodium [Moles/Vol] 141 mmol/L 136 - 144 mmol/L [facility] Urea nitrogen [Mass/Vol] 14 mg/dL 9 - 24 mg/d L [facility] CBC W Auto Differential pane l (Bld)on 07-22-2023 Basophils (Bld) [#/Vol] 0.07 10*3/uL Normal <0.11 [facility] Comment on above: Order Comment: Speci men Type: BLOOD SPECIMENOrdering Facility: [facility] Address: [address] [phone] Performed By: #### 5 7021-8 ####[facility] LABCLIA [id number] [place] [address] Basophils/100 WBC (Bld) 1.2 % Normal [facility] Comment on above: Order Comment: Speci men Type: BLOOD SPECIMENOrdering Facility: [facility] Address: [address] [place] [address] Performed By: #### 5 7021-8 ####[facility] LABCLIA [id number] [place] [address] Differential cell count method Nom (Bld) Auto Normal [facility] Comment on above: Order Comment: Speci men Type: BLOOD SPECIMENOrdering Facility: [facility] Address: [address] [place] [address] Performed By: #### 5 7021-8 ####[facility] LABCLIA [id number] [place] [address] Eosinophils (Bld) [#/Vol] 0.17 10*3/uL Normal <0.46 [facility] Comment on above: Order Comment: Speci men Type: BLOOD SPECIMENOrdering Facility: [facility] Address: [address] [place] [address] Performed By: #### 5 7021-8 ####[facility] LABCLIA [id number] [place] [address] Eosinophils/100 WBC (Bld) 3.0 % Normal [facility] Comment on above: Order Comment: Speci men Type: BLOOD SPECIMENOrdering Facility: [facility] Address: [address] [place] [address] Performed By: #### 5 7021-8 ####[facility] LABCLIA [id number] [place] [address] Erythrocyte distribution width (RBC) [Ratio] 16.1 % High 11.5-15.0 [facility] Comment on above: Order Comment: Speci men Type: BLOOD SPECIMENOrdering Facility: [facility] Address: [address] [place] [address] Performed By: #### 5 7021-8 ####[facility] LABCLIA [id number] [place] [address] Hematocrit (Bld) [Volume fraction] 46.9 % Normal 39.0-51.0 [facility] Comment on above: Order Comment: Speci men Type: BLOOD SPECIMENOrdering Facility: [facility] Address: [address] [place] [address] Performed By: #### 5 7021-8 ####[facility] LABCLIA [id number] [place] [address] Hemoglobin (Bld) [Mass/Vol] 15.2 g/dL Normal 13.0-17.0 [facility] Comment on above: Order Comment: Speci men Type: BLOOD SPECIMENOrdering Facility: [facility] Address: [address] [place] [address] Performed By: #### 5 7021-8 ####[facility] LABIA [id number] [place] [address] Immature granulocytes (Bld) [#/Vol] 0.09 10*3/uL Normal <0.10 [facility] Comment on above: Order Comment: Speci men Type: BLOOD SPECIMENOrdering Facility: [facility] Address: [address] [place] [address] Performed By: #### 5 7021-8 ####[facility] LABCLIA [id number] [place] [address] Immature granulocytes/100 WBC (Bld) 1.6 % Normal [facility] Comment on above: Order Comment: Speci men Type: BLOOD SPECIMENOrdering Facility: [facility] Address: [address] [place] [address] Performed By: #### 5 7021-8 ####[facility] LABIA [id number] [place] [address] Lymphocytes (Bld) [#/Vol] 0.26 10*3/uL Low 1.00-4.00 [facility] Comment on above: Order Comment: Speci men Type: BLOOD SPECIMENOrdering Facility: [facility] Address: [address] [address] Performed By: #### 5 7021-8 ####[facility] LABCLIA [id number] [place] [address] Lymphocytes/100 WBC (Bld) 4.6 % Normal [facility] Comment on above: Order Comment: Speci men Type: BLOOD SPECIMENOrdering Facility: [facility] Address: [address] [place] [address] Performed By: #### 5 7021-8 ####[facility] LABCLIA [id number] [place] [address] MCH (RBC) [Entitic mass] 29.0 pg Normal 26.0-34.0 [facility] Comment on above: Order Comment: Speci men Type: BLOOD SPECIMENOrdering Facility: [facility] Address: [address] [place] [address] Performed By: #### 5 7021-8 ####[facility] LABCLIA [id number] [place] [address] MCHC (RBC) [Mass/Vol] 32.4 g/dL Normal 30.5-36.0 [facility] Comment on above: Order Comment: Speci men Type: BLOOD SPECIMENOrdering Facility: [facility] Address: [address] [place] [address] Performed By: #### 5 7021-8 ####[facility] LABCLIA [id number] [place] [address] MCV (RBC) [Entitic vol] 89.5 fL Normal 80.0-100.0 [facility] Comment on above: Order Comment: Speci men Type: BLOOD SPECIMENOrdering Facility: [facility] Address: [address] [place] [address] Performed By: #### 5 7021-8 ####[facility] LABCLIA [id number] [place] [address] Monocytes (Bld) [#/Vol] 1.09 10*3/uL High <0.87 [facility] Comment on above: Order Comment: Speci men Type: BLOOD SPECIMENOrdering Facility: [facility] Address: [address] [place] [address] Performed By: #### 5 7021-8 ####[facility] LABCLIA [id number] [place] [address] Monocytes/100 WBC (Bld) 19.3 % Normal [facility] Comment on above: Order Comment: Speci men Type: BLOOD SPECIMENOrdering Facility: [facility] Address: [address] [place] [address] Performed By: #### 5 7021-8 ####[facility] LABCLIA [id number] [place] [address] Neutrophils (Bld) [#/Vol] 3.97 10*3/uL Normal 1.45-7.50 [facility] Comment on above: Order Comment: Speci men Type: BLOOD SPECIMENOrdering Facility: [facility] Address: [address] [place] [address] Performed By: #### 5 7021-8 ####[facility] LABCLIA [id number] [place] [address] Neutrophils/100 WBC (Bld) 70.3 % Normal [facility] Comment on above: Order Comment: Speci men Type: BLOOD SPECIMENOrdering Facility: [facility] Address: [address] [address] Performed By: #### 5 7021-8 ####[facility] LABIA [id number] [place] [address] Nucleated RBC (Bld) [#/Vol] 10*3/uL Normal <0.01 [facility] Comment on above: Order Comment: Speci men Type: BLOOD SPECIMENOrdering Facility: [facility] Address: [address] [place] [address] Performed By: #### 5 7021-8 ####[facility] LABCLIA [id number] [place] [address] Nucleated RBC/100 WBC (Bld) [Ratio] 0.0 /100 WBC Normal [facility] Comment on above: Order Comment: Speci men Type: BLOOD SPECIMENOrdering Facility: [facility] Address: [address] [place] [address] Performed By: #### 5 7021-8 ####[facility] LABCLIA [id number] [place] [address] Platelet mean volume (Bld) [Entitic vol] 10.0 fL Normal 9.0-12.7 [facility] Comment on above: Order Comment: Speci men Type: BLOOD SPECIMENOrdering Facility: [facility] Address: [address] [place] [address] Performed By: #### 5 7021-8 ####[facility] LABIA [id number] [place] [address] Platelets (Bld) [#/Vol] 242 10*3/uL Normal 150-400 [facility] Comment on above: Order Comment: Speci men Type: BLOOD SPECIMENOrdering Facility: [facility] Address: [address] [place] [address] Performed By: #### 5 7021-8 ####[facility] LABIA [id number] [place] [address] RBC (Bld) [#/Vol] 5.24 10*6/uL Normal 4.20-6.00 [facility] Comment on above: Order Comment: Speci men Type: BLOOD SPECIMENOrdering Facility: [facility] Address: [address] [place] [address] Performed By: #### 5 7021-8 ####[facility] LABCLIA [id number] [place] [address] WBC (Bld) [#/Vol] 5.65 10*3/uL Normal 3.70-11.00 [facility] Comment on above: Order Comment: Speci men Type: BLOOD SPECIMENOrdering Facility: [facility] Address: [place] [address] Performed By: #### 5 7021-8 ####[facility] LABCLIA [id number] [place] [address] Basophils (Bld) [#/Vol] 0.07 10*3/uL <0.11 k/uL [facility] Basophils/100 WBC (Bld) 1.2 % C [facility] Differential cell count method Nom (Bld) Auto [facility] Eosinophils (Bld) [#/Vol] 0.17 10*3/uL <0.46 k/uL [facility] Eosinophils/100 WBC (Bld) 3.0 % [facility] Erythrocyte distribution width (RBC) [Ratio] 16.1 % High 11.5 - 15.0 % [facility] Hematocrit (Bld) [Volume fraction] 46.9 % 39.0 - 51.0 % [facility] Hemoglobin (Bld) [Mass/Vol] 15.2 g/dL 13.0 - 17.0 g/dL [facility] Immature granulocytes (Bld) [#/Vol] 0.09 10*3/uL <0.10 k/uL [facility] Immature granulocytes/100 WBC (Bld) 1.6 % [facility] Lymphocytes (Bld) [#/Vol] 0.26 10*3/uL Low 1.00 - 4.00 k/uL [facility] Lymphocytes/100 WBC (Bld) 4.6 % [facility] MCH (RBC) [Entitic mass] 29.0 pg 26. 0 - 34.0 pg [facility] MCHC (RBC) [Mass/Vol] 32.4 g/dL 30.5 - 36.0 g/dL [facility] MCV (RBC) [Entitic vol] 89.5 fL 80.0 - 100.0 fL [facility] Monocytes (Bld) [#/Vol] 1.09 10*3/uL High <0.87 k/uL [facility] Monocytes/100 WBC (Bld) 19.3 % C [facility] Neutrophils (Bld) [#/Vol] 3.97 10*3/uL 1.45 - 7.50 k/uL [facility] Neutrophils/100 WBC (Bld) 70.3 % [facility] Nucleated RBC (Bld) [#/Vol] <0.01 k/uL [facility] Nucleated RBC/100 WBC (Bld) [Ratio] 0.0 /100 WBC [facility] Platelet mean volume (Bld) [Entitic vol] 10.0 fL 9.0 - 12.7 fL [facility] Platelets (Bld) [#/Vol] 242 10*3/uL 150 - 400 k/uL [facility] RBC (Bld) [#/Vol] 5.24 10*6/uL 4.20 - 6.0 0 m/uL [facility] WBC (Bld) [#/Vol] 5.65 10*3/uL 3.70 - 11. 00 k/uL [facility] URIC ACID BLOODon 07-22-2023 Urate [Mass/Vol] 6.1 mg/dL 4.0 - 8.1 mg/dL [facility] Urate SerPl-mCncon Urate [Mass/Vol] 6.1 mg/dL Normal 4.0-8.1 [facility] Comment on above: Order Comment: Speci men Type: BLOOD SPECIMENOrdering Facility: [facility] Address: [address] [place] [address] Performed By: #### 2 4321-2, 3084-1 ####[facility] LABCLIA [id number] [place] [address] CBC W Auto Differential pane l (Bld)on 07-08-2023 Basophils (Bld) [#/Vol] 0.06 10*3/uL Normal <0.11 [facility] Comment on above: Order Comment: Speci men Type: BLOOD SPECIMENOrdering Facility: [facility] Address: [address] [place] [address] Performed By: #### 5 7021-8 ####[facility] LABCLIA [id number] [place] [address] Basophils/100 WBC (Bld) 0.8 % Normal [facility] Comment on above: Order Comment: Speci men Type: BLOOD SPECIMENOrdering Facility: [facility] Address: [address] [place] [address] Performed By: #### 5 7021-8 ####[facility] LABCLIA [id number] [place] [address] Differential cell count method Nom (Bld) Auto Normal [facility] Comment on above: Order Comment: Speci men Type: BLOOD SPECIMENOrdering Facility: [facility] Address: [address] [place] [address] Performed By: #### 5 7021-8 ####[facility] LABCLIA [id number] [place] [address] Eosinophils (Bld) [#/Vol] 0.24 10*3/uL Normal <0.46 [facility] Comment on above: Order Comment: Speci men Type: BLOOD SPECIMENOrdering Facility: [facility] Address: [address] [place] [address] Performed By: #### 5 7021-8 ####[facility] LABCLIA [id number] [place] [address] Eosinophils/100 WBC (Bld) 3.1 % Normal [facility] Comment on above: Order Comment: Speci men Type: BLOOD SPECIMENOrdering Facility: [facility] Address: [address] [place] [address] Performed By: #### 5 7021-8 ####[facility] LABCLIA [id number] [place] [address] Erythrocyte distribution width (RBC) [Ratio] 15.9 % High 11.5-15.0 [facility] Comment on above: Order Comment: Speci men Type: BLOOD SPECIMENOrdering Facility: [facility] Address: [address] [place] [address] Performed By: #### 5 7021-8 ####[facility] LABCLIA [id number] [place] [address] Hematocrit (Bld) [Volume fraction] 41.1 % Normal 39.0-51.0 [facility] Comment on above: Order Comment: Speci men Type: BLOOD SPECIMENOrdering Facility: [facility] Address: [address] [place] [address] Performed By: #### 5 7021-8 ####[facility] LABCLIA [id number] [place] [address] Hemoglobin (Bld) [Mass/Vol] 13.3 g/dL Normal 13.0-17.0 [facility] Comment on above: Order Comment: Speci men Type: BLOOD SPECIMENOrdering Facility: [facility] Address: [address] [place] [address] Performed By: #### 5 7021-8 ####[facility] LABIA [id number] [place] [address] Immature granulocytes (Bld) [#/Vol] 0.03 10*3/uL Normal <0.10 [facility] Comment on above: Order Comment: Speci men Type: BLOOD SPECIMENOrdering Facility: [facility] Address: [address] [place] [address] Performed By: #### 5 7021-8 ####[facility] LABIA [id number] [place] [address] Immature granulocytes/100 WBC (Bld) 0.4 % Normal [facility] Comment on above: Order Comment: Speci men Type: BLOOD SPECIMENOrdering Facility: [facility] Address: [address] [place] [address] Performed By: #### 5 7021-8 ####[facility] LABIA [id number] [place] [address] Lymphocytes (Bld) [#/Vol] 0.25 10*3/uL Low 1.00-4.00 [facility] Comment on above: Order Comment: Speci men Type: BLOOD SPECIMENOrdering Facility: [facility] Address: [address] [place] [address] Performed By: #### 5 7021-8 ####[facility] LABCLIA [id number] [place] [address] Lymphocytes/100 WBC (Bld) 3.2 % Normal [facility] Comment on above: Order Comment: Speci men Type: BLOOD SPECIMENOrdering Facility: [facility] Address: [address] [place] [address] Performed By: #### 5 7021-8 ####[facility] LABCLIA [id number] [place] [address] MCH (RBC) [Entitic mass] 28.8 pg Normal 26.0-34.0 [facility] Comment on above: Order Comment: Speci men Type: BLOOD SPECIMENOrdering Facility: [facility] Address: [address] [place] [address] Performed By: #### 5 7021-8 ####[facility] LABCLIA [id number] [place] [address] MCHC (RBC) [Mass/Vol] 32.4 g/dL Normal 30.5-36.0 [facility] Comment on above: Order Comment: Speci men Type: BLOOD SPECIMENOrdering Facility: [facility] Address: [address] [place] [address] Performed By: #### 5 7021-8 ####[facility] LABCLIA [id number] [place] [address] MCV (RBC) [Entitic vol] 89.0 fL Normal 80.0-100.0 [facility] Comment on above: Order Comment: Speci men Type: BLOOD SPECIMENOrdering Facility: [facility] Address: [address] [place] [address] Performed By: #### 5 7021-8 ####[facility] LABCLIA [id number] [place] [address] Monocytes (Bld) [#/Vol] 0.52 10*3/uL Normal <0.87 [facility] Comment on above: Order Comment: Speci men Type: BLOOD SPECIMENOrdering Facility: [facility] Address: [address] [address] Performed By: #### 5 7021-8 ####[facility] LABCLIA [id number] [place] [address] Monocytes/100 WBC (Bld) 6.6 % Normal [facility] Comment on above: Order Comment: Speci men Type: BLOOD SPECIMENOrdering Facility: [facility] Address: [address] [place] [address] Performed By: #### 5 7021-8 ####[facility] LABCLIA [id number] [place] [address] Neutrophils (Bld) [#/Vol] 6.73 10*3/uL Normal 1.45-7.50 [facility] Comment on above: Order Comment: Speci men Type: BLOOD SPECIMENOrdering Facility: [facility] Address: [address] [place] [address] Performed By: #### 5 7021-8 ####[facility] LABCLIA [id number] [place] [address] Neutrophils/100 WBC (Bld) 85.9 % Normal [facility] Comment on above: Order Comment: Speci men Type: BLOOD SPECIMENOrdering Facility: [facility] Address: [address] [place] [address] Performed By: #### 5 7021-8 ####[facility] LABCLIA [id number] [place] [address] Nucleated RBC (Bld) [#/Vol] 10*3/uL Normal <0.01 [facility] Comment on above: Order Comment: Speci men Type: BLOOD SPECIMENOrdering Facility: [facility] Address: [address] [place], [place] [id number] Performed By: #### 5 7021-8 ####[facility] LABCLIA [id number] [place] [address] Nucleated RBC/100 WBC (Bld) [Ratio] 0.0 /100 WBC Normal [facility] Comment on above: Order Comment: Speci men Type: BLOOD SPECIMENOrdering Facility: [facility] Address: [address] [place] [address] Performed By: #### 5 7021-8 ####[facility] LABCLIA [id number] [place] [address] Platelet mean volume (Bld) [Entitic vol] 10.1 fL Normal 9.0-12.7 [facility] Comment on above: Order Comment: Speci men Type: BLOOD SPECIMENOrdering Facility: [facility] Address: [address] [place] [address] Performed By: #### 5 7021-8 ####[facility] LABCLIA [id number] [place] [address] Platelets (Bld) [#/Vol] 146 10*3/uL Low 150-400 [facility] Comment on above: Order Comment: Speci men Type: BLOOD SPECIMENOrdering Facility: [facility] Address: [address] [place] [address] Performed By: #### 5 7021-8 ####[facility] LABCLIA [id number] [place] [address] RBC (Bld) [#/Vol] 4.62 10*6/uL Normal 4.20-6.00 [facility] Comment on above: Order Comment: Speci men Type: BLOOD SPECIMENOrdering Facility: [facility] Address: [address] [place] [address] Performed By: #### 5 7021-8 ####[facility] LABCLIA [id number] [place] [address] WBC (Bld) [#/Vol] 7.83 10*3/uL Normal 3.70-11.00 [facility] Comment on above: Order Comment: Speci men Type: BLOOD SPECIMENOrdering Facility: [facility] Address: [place] [address] Performed By: #### 5 7021-8 ####[facility] LABCLIA [id number] [place] [address] Basophils (Bld) [#/Vol] 0.06 10*3/uL <0.11 k/uL [facility] Basophils/100 WBC (Bld) 0.8 % [facility] Differential cell count method Nom (Bld) Auto [facility] Eosinophils (Bld) [#/Vol] 0.24 10*3/uL <0.46 k/uL [facility] Eosinophils/100 WBC (Bld) 3.1 % [facility] Erythrocyte distribution width (RBC) [Ratio] 15.9 % High 11.5 - 15.0 % [facility] Hematocrit (Bld) [Volume fraction] 41.1 % 39.0 - 51.0 % [facility] Hemoglobin (Bld) [Mass/Vol] 13.3 g/dL 13.0 - 17.0 g/dL [facility] Immature granulocytes (Bld) [#/Vol] 0.03 10*3/uL <0.10 k/uL [facility] Immature granulocytes/100 WBC (Bld) 0.4 % [facility] Lymphocytes (Bld) [#/Vol] 0.25 10*3/uL Low 1.00 - 4.00 k/uL [facility] Lymphocytes/100 WBC (Bld) 3.2 % [facility] MCH (RBC) [Entitic mass] 28.8 pg 26. 0 - 34.0 pg [facility] MCHC (RBC) [Mass/Vol] 32.4 g/dL 30.5 - 36.0 g/dL [facility] MCV (RBC) [Entitic vol] 89.0 fL 80.0 - 100.0 fL [facility] Monocytes (Bld) [#/Vol] 0.52 10*3/uL <0.87 k/uL [facility] Monocytes/100 WBC (Bld) 6.6 % [facility] Neutrophils (Bld) [#/Vol] 6.73 10*3/uL 1.45 - 7.50 k/uL [facility] Neutrophils/100 WBC (Bld) 85.9 % [facility] Nucleated RBC (Bld) [#/Vol] <0.01 k/uL [facility] Nucleated RBC/100 WBC (Bld) [Ratio] 0.0 /100 WBC [facility] Platelet mean volume (Bld) [Entitic vol] 10.1 fL 9.0 - 12.7 fL [facility] Platelets (Bld) [#/Vol] 146 10*3/uL Low 150 - 400 k/uL [facility] RBC (Bld) [#/Vol] 4.62 10*6/uL 4.20 - 6.0 0 m/uL [facility] WBC (Bld) [#/Vol] 7.83 10*3/uL 3.70 - 11. 00 k/uL [facility] CNOVSPon 07-08-2023 CNOVSP Normal [facility] Comprehensive metabolic 2000 panelon 07-08-2023 Albumin [Mass/Vol] 3.9 g/dL Normal 3.9-4.9 [facility] Comment on above: Order Comment: Speci men Type: BLOOD SPECIMENOrdering Facility: [facility] Address: [address] [address] Performed By: #### 2 4323-8, 308- ####[facility] LABIA [id number] [place] [address] ALP [Catalytic activity/Vol] 228 U/L High 38-113 [facility] Comment on above: Order Comment: Speci men Type: BLOOD SPECIMENOrdering Facility: [facility] Address: [address] [id number] Performed By: #### 2 4323-8, 308- ####[facility] LABIA [id number] [place] [address] ALT [Catalytic activity/Vol] 19 U/L Normal 10-54 [facility] Comment on above: Order Comment: Speci men Type: BLOOD SPECIMENOrdering Facility: [facility] Address: [address] [address] Performed By: #### 2 4323-8, 3083- ####[facility] LABCLIA [id number] [place] [address] Anion gap [Moles/Vol] 11 mmol/L Normal 9-18 [facility] Comment on above: Order Comment: Speci men Type: BLOOD SPECIMENOrdering Facility: [facility] Address: [address] [address] Performed By: #### 2 4323-8, 3083- ####[facility] LABCLIA [id number] [place] [address] AST [Catalytic activity/Vol] 17 U/L Normal 14-40 [facility] Comment on above: Order Comment: Speci men Type: BLOOD SPECIMENOrdering Facility: [facility] Address: [address] [address] Performed By: #### 2 4323-8, 3083-11 ####[facility] LABCLIA [id number] [place] [address] Bilirubin [Mass/Vol] 0.3 mg/dL Normal 0.2-1.3 [facility] Comment on above: Order Comment: Speci men Type: BLOOD SPECIMENOrdering Facility: [facility] Address: [address] [address] Performed By: #### 2 4323-8, 3083-11 ####[facility] LABCLIA [id number] [place] [address] Calcium [Mass/Vol] 9.3 mg/dL Normal 8.5-10.2 [facility] Comment on above: Order Comment: Speci men Type: BLOOD SPECIMENOrdering Facility: [facility] Address: [address] [address] Performed By: #### 2 4323-8, 3083- ####[facility] LABCLIA [id number] [place] [address] Chloride [Moles/Vol] 102 mmol/L Normal 97-105 [facility] Comment on above: Order Comment: Speci men Type: BLOOD SPECIMENOrdering Facility: [facility] Address: [address] [place] [address] Performed By: #### 2 4323-8, 3084-1 ####[facility] LABCLIA [id number] [place] [address] CO2 [Moles/Vol] 22 mmol/L Normal 22-30 [facility] Comment on above: Order Comment: Speci men Type: BLOOD SPECIMENOrdering Facility: [facility] Address: [address] [place] [address] Performed By: #### 2 4323-8, 3084-1 ####[facility] LABCLIA [id number] [place] [address] Creatinine [Mass/Vol] 0.90 mg/dL Normal 0.73-1.22 [facility] Comment on above: Order Comment: Speci men Type: BLOOD SPECIMENOrdering Facility: [facility] Address: [address] [place] [address] Performed By: #### 2 4323-8, 3084-1 ####[facility] LABIA [id number] [place] [address] Creatinine and Glomerular filtration rate.predicted panel (S/P/Bld) 94 mL/min/1.73m??? Normal >=60 [facility] Comment on above: Order Comment: Speci men Type: BLOOD SPECIMENOrdering Facility: [facility] Address: [address] [place] [address] Result Comment: Carol mated Glomerular Filtration Rate (eGFR) is calculated using the 2020 CKD-EPI creatinine equation. This equation utilizes serum creatinine, sex, and age as parameters. The creatinine assay has traceable calibration to isotope dilution-mass spectrometry. Refer to KDIGO guidelines for clinical interpretation. In patients with unstable renal function, e.g. those with acute kidney injury, the eGFR may not accurately reflect actual GFR. Performed By: #### 2 4323-8, 3083-1 ####[facility] LABCLIA [id number] [place] [address] Glucose [Mass/Vol] 119 mg/dL High 74-99 [facility] Comment on above: Order Comment: Speci men Type: BLOOD SPECIMENOrdering Facility: [facility] Address: [address] [phone] Result Comment: The [place] Diabetes Association (ADA) provides guidance for cutoff values for fasting glucose and random glucose. The ADA defines fasting as no caloric intake for at least 8 hours. Fasting plasma glucose results between 100 to 125 mg/dL indicate increased risk for diabetes (prediabetes).Fasting plasma glucose results greater than or equal to 126 mg/dL meet the criteria for diagnosis of diabetes. In the absence of unequivocal hyperglycemia, results should be confirmed by repeat testing. In a patient with classic symptoms of hyperglycemia or hyperglycemic crisis, random plasma glucose results greater than or equal to 200 mg/dL meet the criteria for diagnosis of diabetes.Reference: Standards of Medical Care in Diabetes 2016, [place] [employer]. Diabetes Care. 2016.39(Suppl 1). Performed By: #### 2 4323-8, 3083- ####[facility] LABCLIA [id number] [place] [address] Potassium [Moles/Vol] 4.2 mmol/L Normal 3.7-5.1 [facility] Comment on above: Order Comment: Speci men Type: BLOOD SPECIMENOrdering Facility: [facility] Address: [address] [place] [address] Performed By: #### 2 4323-8, 3083- ####[facility] LABCLIA [id number] [place] [address] Protein [Mass/Vol] 6.9 g/dL Normal 6.3-8.0 [facility] Comment on above: Order Comment: Speci men Type: BLOOD SPECIMENOrdering Facility: [facility] Address: [address] [place] [address] Performed By: #### 2 4323-8, 308-1 ####[facility] LABCLIA [id number] [place] [address] Sodium [Moles/Vol] 135 mmol/L Low 136-144 [facility] Comment on above: Order Comment: Speci men Type: BLOOD SPECIMENOrdering Facility: [facility] Address: [address] [address] Performed By: #### 2 4323-8, 3083- ####[facility] LABCLIA [id number] [place] [address] Urea nitrogen [Mass/Vol] 15 mg/dL Normal 9-24 [facility] Comment on above: Order Comment: Speci men Type: BLOOD SPECIMENOrdering Facility: [facility] Address: [address] [address] Performed By: #### 2 4323-8, 3083-11 ####[facility] LABCLIA [id number] [place] [address] Albumin [Mass/Vol] 3.9 g/dL 3.9 - 4.9 g/dL [facility] ALP [Catalytic activity/Vol] 228 U/L High 38 - 113 U/L [facility] ALT [Catalytic activity/Vol] 19 U/L 10 - 54 U/L [facility] Anion gap [Moles/Vol] 11 mmol/L 9 - 18 mmol/L [facility] AST [Catalytic activity/Vol] 17 U/L 14 - 40 U/L [facility] Bilirubin [Mass/Vol] 0.3 mg/dL 0.2 - 1 .3 mg/dL [facility] Calcium [Mass/Vol] 9.3 mg/dL 8.5 - 10. 2 mg/dL [facility] Chloride [Moles/Vol] 102 mmol/L 97 - 10 5 mmol/L [facility] CO2 [Moles/Vol] 22 mmol/L 22 - 30 mmol/L [facility] Creatinine [Mass/Vol] 0.90 mg/dL 0.73 - 1.22 mg/dL [facility] Estimated Glomerular Filtration Rate 94 mL/min/1.73m >=60 mL/min/1.73m [facility] Glucose [Mass/Vol] 119 mg/dL High 74 - 99 mg/dL [facility] Potassium [Moles/Vol] 4.2 mmol/L 3.7 - 5.1 mmol/L [facility] Protein [Mass/Vol] 6.9 g/dL 6.3 - 8.0 g/dL [facility] Sodium [Moles/Vol] 135 mmol/L Low 136 - 144 mmol/L [facility] Urea nitrogen [Mass/Vol] 15 mg/dL 9 - 24 mg/d L [facility] Laboratory - Chemistry and C hemistry - challengeon 07-08-2023 Urate [Mass/Vol] 5.7 mg/dL 4.0 - 8.1 mg/dL [facility] Urate SerPl-nc Urate [Mass/Vol] 5.7 mg/dL Normal 4.0-8.1 [facility] Comment on above: Order Comment: Speci men Type: BLOOD SPECIMENOrdering Facility: [facility] Address: [address] [phone] Performed By: #### 2 4323-8, 3084-1 ####[facility] LABCLIA [id number] [place] [address] CNPNon 07-02-2023 CNPN Normal [facility] CNPNon 06-27-2023 CNPN Normal [facility] CNPNon 06-25-2023 CNPN Normal [facility] Basic metabolic 2000 panelon 06-19-2023 Anion gap [Moles/Vol] 9 mmol/L Normal 9-18 [facility] Comment on above: Order Comment: Speci men Type: BLOOD SPECIMENOrdering Facility: [facility] Address: [address] [phone] Performed By: #### 2 4321-2, 3084-1 ####[facility] LABCLIA [id number] [place] [address] Calcium [Mass/Vol] 9.0 mg/dL Normal 8.5-10.2 [facility] Comment on above: Order Comment: Speci men Type: BLOOD SPECIMENOrdering Facility: [facility] Address: [address] [place] [address] Performed By: #### 2 4321-2, 308- ####[facility] LABCLIA [id number] [place] [address] Chloride [Moles/Vol] 102 mmol/L Normal 97-105 [facility] Comment on above: Order Comment: Speci men Type: BLOOD SPECIMENOrdering Facility: [facility] Address: [address] [place] [address] Performed By: #### 2 4321-2, 3083- ####[facility] LABCLIA [id number] [place] [address] CO2 [Moles/Vol] 25 mmol/L Normal 22-30 [facility] Comment on above: Order Comment: Speci men Type: BLOOD SPECIMENOrdering Facility: [facility] Address: [address] [place] [address] Performed By: #### 2 4321-2, 3083- ####[facility] LABCLIA [id number] [place] [address] Creatinine [Mass/Vol] 0.98 mg/dL Normal 0.73-1.22 [facility] Comment on above: Order Comment: Speci men Type: BLOOD SPECIMENOrdering Facility: [facility] Address: [address] [place] [address] Performed By: #### 2 4321-2, 3083- ####[facility] LABCLIA [id number] [place] [address] Creatinine and Glomerular filtration rate.predicted panel (S/P/Bld) 85 mL/min/1.73m??? Normal >=60 [facility] Comment on above: Order Comment: Speci men Type: BLOOD SPECIMENOrdering Facility: [facility] Address: [address] [phone] Result Comment: Carol mated Glomerular Filtration Rate (eGFR) is calculated using the 2020 CKD-EPI creatinine equation. This equation utilizes serum creatinine, sex, and age as parameters. The creatinine assay has traceable calibration to isotope dilution-mass spectrometry. Refer to KDIGO guidelines for clinical interpretation. In patients with unstable renal function, e.g. those with acute kidney injury, the eGFR may not accurately reflect actual GFR. Performed By: #### 2 432-2, 3083-11 ####[facility] LABCLIA [id number] [place] [address] Glucose [Mass/Vol] 95 mg/dL Normal 74-99 [facility] Comment on above: Order Comment: Speci men Type: BLOOD SPECIMENOrdering Facility: [facility] Address: [address] [place] [address] Result Comment: The [place] Diabetes Association (ADA) provides guidance for cutoff values for fasting glucose and random glucose. The ADA defines fasting as no caloric intake for at least 8 hours. Fasting plasma glucose results between 100 to 125 mg/dL indicate increased risk for diabetes (prediabetes).Fasting plasma glucose results greater than or equal to 126 mg/dL meet the criteria for diagnosis of diabetes. In the absence of unequivocal hyperglycemia, results should be confirmed by repeat testing. In a patient with classic symptoms of hyperglycemia or hyperglycemic crisis, random plasma glucose results greater than or equal to 200 mg/dL meet the criteria for diagnosis of diabetes.Reference: Standards of Medical Care in Diabetes 2016, [place] [employer]. Diabetes Care. 2016.39(Suppl 1). Performed By: #### 2 432-2, 3083-11 ####[facility] LABCLIA [id number] [place] [address] Potassium [Moles/Vol] 4.1 mmol/L Normal 3.7-5.1 [facility] Comment on above: Order Comment: Sara men Type: BLOOD SPECIMENOrdering Facility: [facility] Address: [address] [phone] Performed By: #### 2 432-2, 3083-11 ####[facility] LABCLIA [id number] [place] [address] Sodium [Moles/Vol] 136 mmol/L Normal 136-144 [facility] Comment on above: Order Comment: Speci men Type: BLOOD SPECIMENOrdering Facility: [facility] Address: [address] [place] [address] Performed By: #### 2 4321-2, 3084-1 ####[facility] LABCLIA [id number] [place] [address] Urea nitrogen [Mass/Vol] 19 mg/dL Normal 9-24 [facility] Comment on above: Order Comment: Speci men Type: BLOOD SPECIMENOrdering Facility: [facility] Address: [address] [place] [address] Performed By: #### 2 4321-2, 3084-1 ####[facility] LABCLIA [id number] [place] [address] Anion gap [Moles/Vol] 9 mmol/L 9 - 18 mmol/L [facility] Calcium [Mass/Vol] 9.0 mg/dL 8.5 - 10. 2 mg/dL [facility] Chloride [Moles/Vol] 102 mmol/L 97 - 10 5 mmol/L [facility] CO2 [Moles/Vol] 25 mmol/L 22 - 30 mmol/L [facility] Creatinine [Mass/Vol] 0.98 mg/dL 0.73 - 1.22 mg/dL [facility] Estimated Glomerular Filtration Rate 85 mL/min/1.73m >=60 mL/min/1.73m [facility] Glucose [Mass/Vol] 95 mg/dL 74 - 99 mg/dL [facility] Potassium [Moles/Vol] 4.1 mmol/L 3.7 - 5.1 mmol/L [facility] Sodium [Moles/Vol] 136 mmol/L 136 - 144 mmol/L [facility] Urea nitrogen [Mass/Vol] 19 mg/dL 9 - 24 mg/d L [facility] CBC W Auto Differential pane l (Bld)on 06-19-2023 Basophils (Bld) [#/Vol] 0.07 10*3/uL Normal <0.11 [facility] Comment on above: Order Comment: Speci men Type: BLOOD SPECIMENOrdering Facility: [facility] Address: [address] [address] Performed By: #### 5 7021-8 ####[facility] LABCLIA [id number] [place] [address] Basophils/100 WBC (Bld) 0.7 % Normal [facility] Comment on above: Order Comment: Speci men Type: BLOOD SPECIMENOrdering Facility: [facility] Address: [address] [address] Performed By: #### 5 7021-8 ####[facility] LABCLIA [id number] [place] [address] Differential cell count method Nom (Bld) Auto Normal [facility] Comment on above: Order Comment: Speci men Type: BLOOD SPECIMENOrdering Facility: [facility] Address: [address] [address] Performed By: #### 5 7021-8 ####[facility] LABCLIA [id number] [place] [address] Eosinophils (Bld) [#/Vol] 0.39 10*3/uL Normal <0.46 [facility] Comment on above: Order Comment: Speci men Type: BLOOD SPECIMENOrdering Facility: [facility] Address: [address] [address] Performed By: #### 5 7021-8 ####[facility] LABCLIA [id number] [place] [address] Eosinophils/100 WBC (Bld) 4.1 % Normal [facility] Comment on above: Order Comment: Speci men Type: BLOOD SPECIMENOrdering Facility: [facility] Address: [address] [address] Performed By: #### 5 7021-8 ####[facility] LABCLIA [id number] [place] [address] Erythrocyte distribution width (RBC) [Ratio] 16.4 % High 11.5-15.0 [facility] Comment on above: Order Comment: Speci men Type: BLOOD SPECIMENOrdering Facility: [facility] Address: [address] [place] [address] Performed By: #### 5 7021-8 ####[facility] LABIA [id number] [place] [address] Hematocrit (Bld) [Volume fraction] 40.4 % Normal 39.0-51.0 [facility] Comment on above: Order Comment: Speci men Type: BLOOD SPECIMENOrdering Facility: [facility] Address: [address] [place] [address] Performed By: #### 5 7021-8 ####[facility] LABIA [id number] [place] [address] Hemoglobin (Bld) [Mass/Vol] 13.2 g/dL Normal 13.0-17.0 [facility] Comment on above: Order Comment: Speci men Type: BLOOD SPECIMENOrdering Facility: [facility] Address: [address] [place] [address] Performed By: #### 5 7021-8 ####[facility] LABIA [id number] [place] [address] Immature granulocytes (Bld) [#/Vol] 0.09 10*3/uL Normal <0.10 [facility] Comment on above: Order Comment: Speci men Type: BLOOD SPECIMENOrdering Facility: [facility] Address: [address] [place] [address] Performed By: #### 5 7021-8 ####[facility] LABIA [id number] [place] [address] Immature granulocytes/100 WBC (Bld) 0.9 % Normal [facility] Comment on above: Order Comment: Speci men Type: BLOOD SPECIMENOrdering Facility: [facility] Address: [address] [place] [address] Performed By: #### 5 7021-8 ####[facility] LABIA [id number] [place] [address] Lymphocytes (Bld) [#/Vol] 0.15 10*3/uL Low 1.00-4.00 [facility] Comment on above: Order Comment: Speci men Type: BLOOD SPECIMENOrdering Facility: [facility] Address: [address] [place] [address] Performed By: #### 5 7021-8 ####[facility] LABIA [id number] [place] [address] Lymphocytes/100 WBC (Bld) 1.6 % Normal [facility] Comment on above: Order Comment: Speci men Type: BLOOD SPECIMENOrdering Facility: [facility] Address: [address] [place] [address] Performed By: #### 5 7021-8 ####[facility] LABIA [id number] [place] [address] MCH (RBC) [Entitic mass] 29.8 pg Normal 26.0-34.0 [facility] Comment on above: Order Comment: Speci men Type: BLOOD SPECIMENOrdering Facility: [facility] Address: [address] [place] [address] Performed By: #### 5 7021-8 ####[facility] LABIA [id number] [place] [address] MCHC (RBC) [Mass/Vol] 32.7 g/dL Normal 30.5-36.0 [facility] Comment on above: Order Comment: Speci men Type: BLOOD SPECIMENOrdering Facility: [facility] Address: [address] [place] [address] Performed By: #### 5 7021-8 ####[facility] LABCLIA [id number] [place] [address] MCV (RBC) [Entitic vol] 91.2 fL Normal 80.0-100.0 [facility] Comment on above: Order Comment: Speci men Type: BLOOD SPECIMENOrdering Facility: [facility] Address: [address] [place] [address] Performed By: #### 5 7021-8 ####[facility] LABCLIA [id number] [place] [address] Monocytes (Bld) [#/Vol] 1.13 10*3/uL High <0.87 [facility] Comment on above: Order Comment: Speci men Type: BLOOD SPECIMENOrdering Facility: [facility] Address: [address] [place] [address] Performed By: #### 5 7021-8 ####[facility] LABCLIA [id number] [place] [address] Monocytes/100 WBC (Bld) 11.9 % Normal [facility] Comment on above: Order Comment: Speci men Type: BLOOD SPECIMENOrdering Facility: [facility] Address: [address] [place] [address] Performed By: #### 5 7021-8 ####[facility] LABCLIA [id number] [place] [address] Neutrophils (Bld) [#/Vol] 7.70 10*3/uL High 1.45-7.50 [facility] Comment on above: Order Comment: Speci men Type: BLOOD SPECIMENOrdering Facility: [facility] Address: [address] [place] [address] Performed By: #### 5 7021-8 ####[facility] LABCLIA [id number] [place] [address] Neutrophils/100 WBC (Bld) 80.8 % Normal [facility] Comment on above: Order Comment: Speci men Type: BLOOD SPECIMENOrdering Facility: [facility] Address: [address] [place], [place] [address] Performed By: #### 5 7021-8 ####[facility] LABCLIA [id number] [place] [address] Nucleated RBC (Bld) [#/Vol] 10*3/uL Normal <0.01 [facility] Comment on above: Order Comment: Speci men Type: BLOOD SPECIMENOrdering Facility: [facility] Address: [address] [place] [address] Performed By: #### 5 7021-8 ####[facility] LABCLIA [id number] [place] [address] Nucleated RBC/100 WBC (Bld) [Ratio] 0.0 /100 WBC Normal [facility] Comment on above: Order Comment: Speci men Type: BLOOD SPECIMENOrdering Facility: [facility] Address: [address] [place] [address] Performed By: #### 5 7021-8 ####[facility] LABIA [id number] [place] [address] Platelet mean volume (Bld) [Entitic vol] 9.5 fL Normal 9.0-12.7 [facility] Comment on above: Order Comment: Speci men Type: BLOOD SPECIMENOrdering Facility: [facility] Address: [address] [place] [address] Performed By: #### 5 7021-8 ####[facility] LABIA [id number] [place] [address] Platelets (Bld) [#/Vol] 217 10*3/uL Normal 150-400 [facility] Comment on above: Order Comment: Speci men Type: BLOOD SPECIMENOrdering Facility: [facility] Address: [address] [place] [address] Performed By: #### 5 7021-8 ####[facility] LABIA [id number] [place] [address] RBC (Bld) [#/Vol] 4.43 10*6/uL Normal 4.20-6.00 [facility] Comment on above: Order Comment: Speci men Type: BLOOD SPECIMENOrdering Facility: [facility] Address: [address] [place] [address] Performed By: #### 5 7021-8 ####[facility] LABCLIA [id number] [place] [address] WBC (Bld) [#/Vol] 9.53 10*3/uL Normal 3.70-11.00 [facility] Comment on above: Order Comment: Speci men Type: BLOOD SPECIMENOrdering Facility: [facility] Address: [address] [place] [address] Performed By: #### 5 7021-8 ####[facility] LABCLIA [id number] [place] [address] Basophils (Bld) [#/Vol] 0.07 10*3/uL <0.11 k/uL [facility] Basophils/100 WBC (Bld) 0.7 % [facility] Differential cell count method Nom (Bld) Auto [facility] Eosinophils (Bld) [#/Vol] 0.39 10*3/uL <0.46 k/uL [facility] Eosinophils/100 WBC (Bld) 4.1 % [facility] Erythrocyte distribution width (RBC) [Ratio] 16.4 % High 11.5 - 15.0 % [facility] Hematocrit (Bld) [Volume fraction] 40.4 % 39.0 - 51.0 % [facility] Hemoglobin (Bld) [Mass/Vol] 13.2 g/dL 13.0 - 17.0 g/dL [facility] Immature granulocytes (Bld) [#/Vol] 0.09 10*3/uL <0.10 k/uL [facility] Immature granulocytes/100 WBC (Bld) 0.9 % [facility] Lymphocytes (Bld) [#/Vol] 0.15 10*3/uL Low 1.00 - 4.00 k/uL [facility] Lymphocytes/100 WBC (Bld) 1.6 % [facility] MCH (RBC) [Entitic mass] 29.8 pg 26. 0 - 34.0 pg [facility] MCHC (RBC) [Mass/Vol] 32.7 g/dL 30.5 - 36.0 g/dL [facility] MCV (RBC) [Entitic vol] 91.2 fL 80.0 - 100.0 fL [facility] Monocytes (Bld) [#/Vol] 1.13 10*3/uL High <0.87 k/uL [facility] Monocytes/100 WBC (Bld) 11.9 % [facility] Neutrophils (Bld) [#/Vol] 7.70 10*3/uL High 1.45 - 7.50 k/uL [facility] Neutrophils/100 WBC (Bld) 80.8 % [facility] Nucleated RBC (Bld) [#/Vol] <0.01 k/uL [facility] Nucleated RBC/100 WBC (Bld) [Ratio] 0.0 /100 WBC [facility] Platelet mean volume (Bld) [Entitic vol] 9.5 fL 9.0 - 12.7 fL [facility] Platelets (Bld) [#/Vol] 217 10*3/uL 150 - 400 k/uL [facility] RBC (Bld) [#/Vol] 4.43 10*6/uL 4.20 - 6.0 0 m/uL [facility] WBC (Bld) [#/Vol] 9.53 10*3/uL 3.70 - 11. 00 k/uL [facility] CNOVSPon 06-19-2023 CNOVSP Normal [facility] URIC ACID BLOODon 06-19-2023 Urate [Mass/Vol] 4.9 mg/dL 4.0 - 8.1 mg/dL [facility] Urate SerPl-mCncon Urate [Mass/Vol] 4.9 mg/dL Normal 4.0-8.1 [facility] Comment on above: Order Comment: Speci men Type: BLOOD SPECIMENOrdering Facility: [facility] Address: [address] [place] [id number] Performed By: #### 2 4321-2, 3084-1 ####[facility] LABCLIA [id number] [place] [address] Ambulatory Visit Summaryon 0 06-17-2023 Ambulatory Visit Summary KATIA FAULKNER :1955 Visit Date:06/17/2023 Ambulatory Visit Instructions Your Diagnosis Encounter for care related to Port-a-Cath Your Care Team Attending Physician - MIGUEL LOFTON, Elmer Martins Primary Care Physician - SANDRA LOFTON, EMELIA This Is Your Medications List Contact prescribing physician if questions or concerns levothyroxine (levothyroxine 125 mcg (0.125 mg) Tab) multivitamin (Multi Vitamins oral tablet) omega-3 polyunsaturated fatty acids (Fish Oil) Procedures Performed Insertion of implantable venous access port (05/28/2023), Biopsy of inguinal lymph node (05/07/2023), Thoracentesis (01/28/2002), Bronchoscopy (01/20/2002), Biopsy of lymph node. Medications What How Much When Instructions Unchanged levothyroxine (levothyroxine 125 mcg (0.125 mg) Tab) 1 Tablets By Mouth Every day Contact prescribing physician if questions or concerns Unchanged multivitamin (Multi Vitamins oral tablet) 1 Tablets By Mouth Every day Contact prescribing physician if questions or concerns Unchanged omega-3 polyunsaturated fatty acids (Fish Oil) as directed Contact prescribing physician if questions or concerns Allergies No Known Allergies No Known Medication Allergies Problems Ongoing - Any problem that you are currently receiving treatment for. BMI 25.0-25.9,adult Diffuse large B-cell lymphoma Encounter for care related to Port-a-Cath GERD (gastroesophageal reflux disease) Hypothyroidism Inguinal adenopathy Overweight [facility] Ambulatory Visit Summary KATIA FAULKNER :1955 Visit Date:06/17/2023 Ambulatory Visit Instructions Your Care Team Attending Physician - MIGUEL LOFTON, Elmer Martins Primary Care Physician - SANDRA LOFTON, EMELIA This Is Your Medications List levothyroxine (levothyroxine 125 mcg (0.125 mg) Tab) multivitamin (Multi Vitamins oral tablet) omega-3 polyunsaturated fatty acids (Fish Oil) Procedures Performed Insertion of implantable venous access port (05/28/2023), Biopsy of inguinal lymph node (05/07/2023), Thoracentesis (01/28/2002), Bronchoscopy (01/20/2002), Biopsy of lymph node. Medications What How Much When Instructions Unchanged levothyroxine (levothyroxine 125 mcg (0.125 mg) Tab) 1 Tablets By Mouth Every day Unchanged multivitamin (Multi Vitamins oral tablet) 1 Tablets By Mouth Every day Unchanged omega-3 polyunsaturated fatty acids (Fish Oil) as directed Allergies No Known Allergies No Known Medication Allergies Problems Ongoing - Any problem that you are currently receiving treatment for. BMI 25.0-25.9,adult Diffuse large B-cell lymphoma GERD (gastroesophageal reflux disease) Hypothyroidism Inguinal adenopathy Overweight Normal [facility] General Surgery Office/Clini c Noteon 06-17-2023 General Surgery Office/Clinic Note Chief Complaint post operative follow up HPI Staff 20 day post operative follow up post port insertion. Denies discomfort, no use of pain medication. Denies bleeding or drainage. Port has been accessed once without incident. History of Present Illness 3 weeks s/p right subclavian bcofgy-d-xqby insertion, doing well; port used once,no problems; no pain or drainage; ln bx site right groin also healing well. Review of Systems ROS - Provider Constitutional: no fever, no sweats, no weight loss. Eyes: no glasses, no blurred vision, no visual loss. ENMT: no dentures, no hoarseness, no swallowing difficulties, no hearing loss, no ear infection(s), no nose bleeds. Cardiovascular: normal blood pressure, no chest pain, regular heartbeat, no heart murmur. Respiratory: no shortness of breath, no cough, no asthma, no wheezing. Gastrointestinal: no nausea, no vomiting, no diarrhea, no constipation, no blood in stool, no change in bowel habits, no abdominal pain, no hepatitis. Genitourinary: no kidney stones, no urine infection, no dysuria. Musculoskeletal: no pain, no weakness. Skin: no changing moles, no rash, no skin lumps. Neurologic: no seizures, no epilepsy, no headache. Psychiatric: no emotional or psychiatric problem. Heme/Lymph: no bleeding problems, no anemia, no blood clots, no transfusions. Allergy/Immunologic: no swollen lymph nodes/glands, no IV drug abuse. Other: Additional ROS info: Except as noted in the above Review of Systems and in the History of Present Illness, all other systems have been reviewed and are negative or noncontributory. Physical Exam skin: incisions healing well, no erythema or drainage; no ecchymoses. Assessment/Plan 1. Encounter for care related to Port-a-Cath (Z45.2: Encounter for adjustment and management of vascular access device) doing well; call with problems/questions. Follow-up No qualifying data available Problem List/Past Medical History Ongoing BMI 25.0-25.9,adult Diffuse large B-cell lymphoma Encounter for care related to Port-a-Cath GERD (gastroesophageal reflux disease) Hypothyroidism Inguinal adenopathy Overweight Historical No qualifying data Procedure/Surgical History Insertion of implantable venous access port (05/28/2023), Biopsy of inguinal lymph node (05/07/2023), Thoracentesis (01/28/2002), Bronchoscopy (01/20/2002), Biopsy of lymph node. Medications Fish Oil levothyroxine 125 mcg (0.125 mg) Tab, 125 mcg= 1 tab(s), Oral, Daily Multi Vitamins oral tablet, 1 tab(s), Oral, Daily Allergies No Known Allergies No Known Medication Allergies Social History Alcohol - Denies Alcohol Use, 04/29/2023 Substance Abuse - Denies Substance Abuse, 04/29/2023 Tobacco Former smoker, quit more than 30 days ago Tobacco Use:. Never Smokeless Tobacco Use:. Cigarettes, 1 per day. Started age 16.0 Years. Stopped age 46 Years., 04/29/2023 Family History Diabetes mellitus type 2: Mother. Heart disease: Mother. Hypertension: Mother. Primary malignant neoplasm of skin: Father. Normal [facility] Comment on above: Result Comment: Elec tronically Signed By: MIGUEL LOFTON, Elmer Mas\Date and Time Signed: 06/17/23 15:19 EDT Consultation Noteon 06-13-20 Consultation Note [id number] 0CD:127 Normal [facility] CNPNon 06-12-2023 CNPN [facility] CNCNPATEDon 06-06-2023 CNCNPATED Normal [facility] CNPNon 06-06-2023 CNPN [facility] CBC W Auto Differential pane l (Bld)on 06-05-2023 Basophils (Bld) [#/Vol] 0.04 10*3/uL Normal <0.11 [facility] Comment on above: Order Comment: Speci men Type: BLOOD SPECIMENOrdering Facility: [facility] Address: [address] [address] Performed By: #### 5 7021-8 ####[facility] LABCLIA [id number] [place] [address] Basophils/100 WBC (Bld) 0.3 % Normal [facility] Comment on above: Order Comment: Speci men Type: BLOOD SPECIMENOrdering Facility: [facility] Address: [address] [place] [address] Performed By: #### 5 7021-8 ####[facility] LABCLIA [id number] [place] [address] Differential cell count method Nom (Bld) Auto Normal [facility] Comment on above: Order Comment: Speci men Type: BLOOD SPECIMENOrdering Facility: [facility] Address: [address] [address] Performed By: #### 5 7021-8 ####[facility] LABCLIA [id number] [place] [address] Eosinophils (Bld) [#/Vol] 10*3/uL Normal <0.46 [facility] Comment on above: Order Comment: Speci men Type: BLOOD SPECIMENOrdering Facility: [facility] Address: [address] [address] Performed By: #### 5 7021-8 ####[facility] LABCLIA [id number] [place] [address] Eosinophils/100 WBC (Bld) 0.0 % Normal [facility] Comment on above: Order Comment: Speci men Type: BLOOD SPECIMENOrdering Facility: [facility] Address: [address] [address] Performed By: #### 5 7021-8 ####[facility] LABCLIA [id number] [place] [address] Erythrocyte distribution width (RBC) [Ratio] 14.4 % Normal 11.5-15.0 [facility] Comment on above: Order Comment: Speci men Type: BLOOD SPECIMENOrdering Facility: [facility] Address: [address] [place] [address] Performed By: #### 5 7021-8 ####[facility] LABCLIA [id number] [place] [address] Hematocrit (Bld) [Volume fraction] 37.1 % Low 39.0-51.0 [facility] Comment on above: Order Comment: Speci men Type: BLOOD SPECIMENOrdering Facility: [facility] Address: [address] [place] [address] Performed By: #### 5 7021-8 ####[facility] LABIA [id number] [place] [address] Hemoglobin (Bld) [Mass/Vol] 11.8 g/dL Low 13.0-17.0 [facility] Comment on above: Order Comment: Speci men Type: BLOOD SPECIMENOrdering Facility: [facility] Address: [address] [place] [address] Performed By: #### 5 7021-8 ####[facility] LABCLIA [id number] [place] [address] Immature granulocytes (Bld) [#/Vol] 0.12 10*3/uL High <0.10 [facility] Comment on above: Order Comment: Speci men Type: BLOOD SPECIMENOrdering Facility: [facility] Address: [address] [place] [address] Performed By: #### 5 7021-8 ####[facility] LABIA [id number] [place] [address] Immature granulocytes/100 WBC (Bld) 0.9 % Normal [facility] Comment on above: Order Comment: Speci men Type: BLOOD SPECIMENOrdering Facility: [facility] Address: [address] [place] [address] Performed By: #### 5 7021-8 ####[facility] LABCLIA [id number] [place] [address] Lymphocytes (Bld) [#/Vol] 0.56 10*3/uL Low 1.00-4.00 [facility] Comment on above: Order Comment: Speci men Type: BLOOD SPECIMENOrdering Facility: [facility] Address: [address] [place] [address] Performed By: #### 5 7021-8 ####[facility] LABCLIA [id number] [place] [address] Lymphocytes/100 WBC (Bld) 4.0 % Normal [facility] Comment on above: Order Comment: Speci men Type: BLOOD SPECIMENOrdering Facility: [facility] Address: [address] [place] [address] Performed By: #### 5 7021-8 ####[facility] LABCLIA [id number] [place] [address] MCH (RBC) [Entitic mass] 28.4 pg Normal 26.0-34.0 [facility] Comment on above: Order Comment: Speci men Type: BLOOD SPECIMENOrdering Facility: [facility] Address: [address] [place] [address] Performed By: #### 5 7021-8 ####[facility] LABCLIA [id number] [place] [address] MCHC (RBC) [Mass/Vol] 31.8 g/dL Normal 30.5-36.0 [facility] Comment on above: Order Comment: Speci men Type: BLOOD SPECIMENOrdering Facility: [facility] Address: [address] [place] [address] Performed By: #### 5 7021-8 ####[facility] LABCLIA [id number] [place] [address] MCV (RBC) [Entitic vol] 89.4 fL Normal 80.0-100.0 [facility] Comment on above: Order Comment: Speci men Type: BLOOD SPECIMENOrdering Facility: [facility] Address: [address] [place] [address] Performed By: #### 5 7021-8 ####[facility] LABCLIA [id number] [place] [address] Monocytes (Bld) [#/Vol] 0.65 10*3/uL Normal <0.87 [facility] Comment on above: Order Comment: Speci men Type: BLOOD SPECIMENOrdering Facility: [facility] Address: [address] [place] [address] Performed By: #### 5 7021-8 ####[facility] LABIA [id number] [place] [address] Monocytes/100 WBC (Bld) 4.6 % Normal [facility] Comment on above: Order Comment: Speci men Type: BLOOD SPECIMENOrdering Facility: [facility] Address: [address] [place] [address] Performed By: #### 5 7021-8 ####[facility] LABCLIA [id number] [place] [address] Neutrophils (Bld) [#/Vol] 12.66 10*3/uL High 1.45-7.50 [facility] Comment on above: Order Comment: Speci men Type: BLOOD SPECIMENOrdering Facility: [facility] Address: [address] [place] [address] Performed By: #### 5 7021-8 ####[facility] LABIA [id number] [place] [address] Neutrophils/100 WBC (Bld) 90.2 % Normal [facility] Comment on above: Order Comment: Speci men Type: BLOOD SPECIMENOrdering Facility: [facility] Address: [address] [address] Performed By: #### 5 7021-8 ####[facility] LABCLIA [id number] [place] [address] Nucleated RBC (Bld) [#/Vol] 10*3/uL Normal <0.01 [facility] Comment on above: Order Comment: Speci men Type: BLOOD SPECIMENOrdering Facility: [facility] Address: [address] [address] Performed By: #### 5 7021-8 ####[facility] LABCLIA [id number] [place] [address] Nucleated RBC/100 WBC (Bld) [Ratio] 0.0 /100 WBC Normal [facility] Comment on above: Order Comment: Speci men Type: BLOOD SPECIMENOrdering Facility: [facility] Address: [address] [place] [address] Performed By: #### 5 7021-8 ####[facility] LABCLIA [id number] [place] [address] Platelet mean volume (Bld) [Entitic vol] 10.1 fL Normal 9.0-12.7 [facility] Comment on above: Order Comment: Speci men Type: BLOOD SPECIMENOrdering Facility: [facility] Address: [address] [address] Performed By: #### 5 7021-8 ####[facility] LABCLIA [id number] [place] [address] Platelets (Bld) [#/Vol] 334 10*3/uL Normal 150-400 [facility] Comment on above: Order Comment: Speci men Type: BLOOD SPECIMENOrdering Facility: [facility] Address: [address] [place] [address] Performed By: #### 5 7021-8 ####[facility] LABCLIA [id number] [place] [address] RBC (Bld) [#/Vol] 4.15 10*6/uL Low 4.20-6.00 [facility] Comment on above: Order Comment: Speci men Type: BLOOD SPECIMENOrdering Facility: [facility] Address: [address] [place] [address] Performed By: #### 5 7021-8 ####[facility] LABCLIA [id number] [place] [address] WBC (Bld) [#/Vol] 14.03 10*3/uL High 3.70-11.00 [facility] Comment on above: Order Comment: Speci men Type: BLOOD SPECIMENOrdering Facility: [facility] Address: [address] [place] [address] Performed By: #### 5 7021-8 ####[facility] LABCLIA [id number] [place] [address] Basophils (Bld) [#/Vol] 0.04 10*3/uL <0.11 k/uL [facility] Basophils/100 WBC (Bld) 0.3 % [facility] Differential cell count method Nom (Bld) Auto [facility] Eosinophils (Bld) [#/Vol] <0.46 k/uL [facility] Eosinophils/100 WBC (Bld) 0.0 % [facility] Erythrocyte distribution width (RBC) [Ratio] 14.4 % 11.5 - 15.0 % [facility] Hematocrit (Bld) [Volume fraction] 37.1 % Low 39.0 - 51.0 % [facility] Hemoglobin (Bld) [Mass/Vol] 11.8 g/dL Low 13.0 - 17.0 g/dL [facility] Immature granulocytes (Bld) [#/Vol] 0.12 10*3/uL High <0.10 k/uL [facility] Immature granulocytes/100 WBC (Bld) 0.9 % [facility] Lymphocytes (Bld) [#/Vol] 0.56 10*3/uL Low 1.00 - 4.00 k/uL [facility] Lymphocytes/100 WBC (Bld) 4.0 % [facility] MCH (RBC) [Entitic mass] 28.4 pg 26. 0 - 34.0 pg [facility] MCHC (RBC) [Mass/Vol] 31.8 g/dL 30.5 - 36.0 g/dL [facility] MCV (RBC) [Entitic vol] 89.4 fL 80.0 - 100.0 fL [facility] Monocytes (Bld) [#/Vol] 0.65 10*3/uL <0.87 k/uL [facility] Monocytes/100 WBC (Bld) 4.6 % [facility] Neutrophils (Bld) [#/Vol] 12.66 10*3/uL High 1.45 - 7.50 k/uL [facility] Neutrophils/100 WBC (Bld) 90.2 % [facility] Nucleated RBC (Bld) [#/Vol] <0.01 k/uL [facility] Nucleated RBC/100 WBC (Bld) [Ratio] 0.0 /100 WBC [facility] Platelet mean volume (Bld) [Entitic vol] 10.1 fL 9.0 - 12.7 fL [facility] Platelets (Bld) [#/Vol] 334 10*3/uL 150 - 400 k/uL [facility] RBC (Bld) [#/Vol] 4.15 10*6/uL Low 4.20 - 6.0 0 m/uL [facility] WBC (Bld) [#/Vol] 14.03 10*3/uL High 3.70 - 11 .00 k/uL [facility] CNOVSPon 06-05-2023 CNOVSP Normal [facility] CNPNon 06-05-2023 CNPN Normal [facility] Comprehensive metabolic 2000 panelon 06-05-2023 Albumin [Mass/Vol] 3.7 g/dL Low 3.9-4.9 [facility] Comment on above: Order Comment: Speci men Type: BLOOD SPECIMENOrdering Facility: [facility] Address: [address] [place] [address] [place] [address] Performed By: #### 2 4323-8, 3084-1 ####[facility] LABCLIA [id number] [place] [address] ALP [Catalytic activity/Vol] 235 U/L High 38-113 [facility] Comment on above: Order Comment: Speci men Type: BLOOD SPECIMENOrdering Facility: [facility] Address: [address] [address] Performed By: #### 2 4323-8, 3083- ####[facility] LABCLIA [id number] [place] [address] ALT [Catalytic activity/Vol] 26 U/L Normal 10-54 [facility] Comment on above: Order Comment: Speci men Type: BLOOD SPECIMENOrdering Facility: [facility] Address: [address] [address] Performed By: #### 2 4323-8, 3083-11 ####[facility] LABCLIA [id number] [place] [address] Anion gap [Moles/Vol] 10 mmol/L Normal 9-18 [facility] Comment on above: Order Comment: Speci men Type: BLOOD SPECIMENOrdering Facility: [facility] Address: [address] [address] Performed By: #### 2 4323-8, 3083-11 ####[facility] LABCLIA [id number] [place] [address] AST [Catalytic activity/Vol] 27 U/L Normal 14-40 [facility] Comment on above: Order Comment: Speci men Type: BLOOD SPECIMENOrdering Facility: [facility] Address: [address] [address] Performed By: #### 2 4323-8, 3083-11 ####[facility] LABCLIA [id number] [place] [address] Bilirubin [Mass/Vol] 0.2 mg/dL Normal 0.2-1.3 [facility] Comment on above: Order Comment: Speci men Type: BLOOD SPECIMENOrdering Facility: [facility] Address: [address] [address] Performed By: #### 2 4323-8, 3083-11 ####[facility] LABCLIA [id number] [place] [address] Calcium [Mass/Vol] 9.4 mg/dL Normal 8.5-10.2 [facility] Comment on above: Order Comment: Speci men Type: BLOOD SPECIMENOrdering Facility: [facility] Address: [address] [place] [address] Performed By: #### 2 4323-8, 3083-11 ####[facility] LABCLIA [id number] [place] [address] Chloride [Moles/Vol] 102 mmol/L Normal 97-105 [facility] Comment on above: Order Comment: Speci men Type: BLOOD SPECIMENOrdering Facility: [facility] Address: [address] [place] [address] Performed By: #### 2 43238, 3083-11 ####[facility] LABCLIA [id number] [place] [address] CO2 [Moles/Vol] 25 mmol/L Normal 22-30 [facility] Comment on above: Order Comment: Speci men Type: BLOOD SPECIMENOrdering Facility: [facility] Address: [address] [place] [address] Performed By: #### 2 4323-8, 3083-11 ####[facility] LABCLIA [id number] [place] [address] Creatinine [Mass/Vol] 0.96 mg/dL Normal 0.73-1.22 [facility] Comment on above: Order Comment: Speci men Type: BLOOD SPECIMENOrdering Facility: [facility] Address: [address] [place] [address] Performed By: #### 2 4323-8, 3083-11 ####[facility] LABCLIA [id number] [place] [address] ESTIMATED GLOMERULAR FILTRATION RATE 87 mL/min/1.73m??? Normal >=60 [facility] Comment on above: Order Comment: Sara randle Type: BLOOD SPECIMENOrdering Facility: [facility] Address: [address] [phone] Result Comment: Carol mated Glomerular Filtration Rate (eGFR) is calculated using the 2020 CKD-EPI creatinine equation. This equation utilizes serum creatinine, sex, and age as parameters. The creatinine assay has traceable calibration to isotope dilution-mass spectrometry. Refer to KDIGO guidelines for clinical interpretation. In patients with unstable renal function, e.g. those with acute kidney injury, the eGFR may not accurately reflect actual GFR. Performed By: #### 2 4323-8, 3083-1 ####[facility] LABIA [id number] [place] [address] Glucose [Mass/Vol] 120 mg/dL High 74-99 [facility] Comment on above: Order Comment: Sara randle Type: BLOOD SPECIMENOrdering Facility: [facility] Address: [address] [phone] Result Comment: The [place] Diabetes Association (ADA) provides guidance for cutoff values for fasting glucose and random glucose. The ADA defines fasting as no caloric intake for at least 8 hours. Fasting plasma glucose results between 100 to 125 mg/dL indicate increased risk for diabetes (prediabetes).Fasting plasma glucose results greater than or equal to 126 mg/dL meet the criteria for diagnosis of diabetes. In the absence of unequivocal hyperglycemia, results should be confirmed by repeat testing. In a patient with classic symptoms of hyperglycemia or hyperglycemic crisis, random plasma glucose results greater than or equal to 200 mg/dL meet the criteria for diagnosis of diabetes.Reference: Standards of Medical Care in Diabetes 2016, [place] [employer] Association. Diabetes Care. 2016.39(Suppl 1). Performed By: #### 2 4323-8, 3083-1 ####[facility] LABIA [id number] [place] [address] Potassium [Moles/Vol] 4.3 mmol/L Normal 3.7-5.1 [facility] Comment on above: Order Comment: Sara randle Type: BLOOD SPECIMENOrdering Facility: [facility] Address: [address] [address] Performed By: #### 2 4323-8, 308-1 ####[facility] LABCLIA [id number] [place] [address] Protein [Mass/Vol] 7.7 g/dL Normal 6.3-8.0 [facility] Comment on above: Order Comment: Speci men Type: BLOOD SPECIMENOrdering Facility: [facility] Address: [address] [address] Performed By: #### 2 4323-8, 3083- ####[facility] LABCLIA [id number] [place] [address] Sodium [Moles/Vol] 137 mmol/L Normal 136-144 [facility] Comment on above: Order Comment: Speci men Type: BLOOD SPECIMENOrdering Facility: [facility] Address: [address] [address] Performed By: #### 2 4323-8, 3083-11 ####[facility] LABCLIA [id number] [place] [address] Urea nitrogen [Mass/Vol] 26 mg/dL High 9-24 [facility] Comment on above: Order Comment: Speci men Type: BLOOD SPECIMENOrdering Facility: [facility] Address: [address] [place] [address] Performed By: #### 2 4323-8, 3083-11 ####[facility] LABCLIA [id number] [place] [address] Albumin [Mass/Vol] 3.7 g/dL Low 3.9 - 4.9 g/dL [facility] ALP [Catalytic activity/Vol] 235 U/L High 38 - 113 U/L [facility] ALT [Catalytic activity/Vol] 26 U/L 10 - 54 U/L [facility] Anion gap [Moles/Vol] 10 mmol/L 9 - 18 mmol/L [facility] AST [Catalytic activity/Vol] 27 U/L 14 - 40 U/L [facility] Bilirubin [Mass/Vol] 0.2 mg/dL 0.2 - 1 .3 mg/dL [facility] Calcium [Mass/Vol] 9.4 mg/dL 8.5 - 10. 2 mg/dL [facility] Chloride [Moles/Vol] 102 mmol/L 97 - 10 5 mmol/L [facility] CO2 [Moles/Vol] 25 mmol/L 22 - 30 mmol/L [facility] Creatinine [Mass/Vol] 0.96 mg/dL 0.73 - 1.22 mg/dL [facility] Estimated Glomerular Filtration Rate 87 mL/min/1.73m >=60 mL/min/1.73m [facility] Glucose [Mass/Vol] 120 mg/dL High 74 - 99 mg/dL [facility] Potassium [Moles/Vol] 4.3 mmol/L 3.7 - 5.1 mmol/L [facility] Protein [Mass/Vol] 7.7 g/dL 6.3 - 8.0 g/dL [facility] Sodium [Moles/Vol] 137 mmol/L 136 - 144 mmol/L [facility] Urea nitrogen [Mass/Vol] 26 mg/dL High 9 - 24 mg/d L [facility] Laboratory - Chemistry and C hemistry - challengeon 06-05-2023 Urate [Mass/Vol] 8.6 mg/dL High 4.0 - 8.1 mg/dL [facility] Urate SerPl-ncon 3 Urate [Mass/Vol] 8.6 mg/dL High 4.0-8.1 [facility] Comment on above: Order Comment: Speci men Type: BLOOD SPECIMENOrdering Facility: [facility] Address: [address] [place] [phone] Performed By: #### 2 4323-8, 3084-1 ####[facility] LABCLIA [id number] [place] [address] [facility] 06-02-2023 CNPN Normal [facility] CNPNon 06-01-2023 CNPN Normal [facility] Operative Reporton 3 Operative Report [id number]#1.0 0CD:127 Normal [facility] RAD - MISCon 05-29-2023 RAD - MISC [id number]#1.0 0CD:127 Normal [facility] Lab Reportson 05-28-2023 Lab Reports [id number]#1.0 0CD:127 Normal [facility] CNOVSPon 05-27-2023 CNOVSP Normal [facility] Consent for Procedure/Surger yon 05-26-2023 Consent for Procedure/Surgery [id number] 0CD:127 Normal [facility] CNPNon 05-23-2023 CNPN Normal [facility] OUTSIDE SURG PATH SLIDE REVI EWon 05-23-2023 CASE REPORT Normal [facility] Comment on above: Order Comment: Specjos randle Type: SLIDEOrdering Facility: [facility] Outside Review Address: , , Result Comment: Surg ical Pathology Report Case: [id number] Provider: Michael Boykin MD Collected: 05/23/2023 01:17 PMOrdering Location: [facility] Received: 05/23/2023 01:15 PMPathologist: Giuseppe Vasques MD, PhDSpecimen: SLIDE(S), 21 SLIDES ([id number]) Performed By: #### L [id number] ####[facility] [id number] [address] DIAGNOSIS COMMENT Normal [facility] Comment on above: Order Comment: Sara randle Type: SLIDEOrdering Facility: [facility] Outside Review Address: , , Result Comment: The histologic and immunophenotypic findings demonstrate 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 Definitive areas of diffuse large B-cell lymphoma are not identified. The case was reviewed at the hematopathology consensus conference on 05/30/2023 and results discussed with Dr. Castaneda on 05/30/2023.Laboratory Developed Test (LDT) Disclaimer:Performance characteristics of immunohistochemical, immunofluorescent and chromogenic in-situ hybridization tests have been determined by the performing laboratory within [facility]???s [facility]on [facility] Pathology and Laboratory Medicine [place] ([facility], [facility], [facility], [facility], [facility], or [facility]) in a manner consistent with CLIA requirements. One or more of these tests have not been cleared or approved by the FDA. [facility] is regulated under CLIA as qualified to perform high-complexity testing. These tests are used for clinical purposes. They should not be regarded as investigational or for research. Positive and negative controls stain appropriately. Performed By: #### L [id number] ####[facility] LABCLIA [id number] [address] [place] FINAL DIAGNOSIS Normal [facility] Comment on above: Order Comment: Speci men Type: SLIDEOrdering Facility: AP Outside Review Address: , , Result Comment: Outs remi slides ([id number], 05/07/2023), [facility] inguinal lymph node, excisional biopsy:- Follicular lymphoma, grade 3A (see comment).JUDE/JACKSON 05/30/2023 Performed By: #### L [id number] ####[facility] LABCLIA [id number] [address] [place] FINAL PERFORMING LAB Normal [facility] Comment on above: Order Comment: Speci men Type: SLIDEOrdering Facility: AP Outside Review Address: , , Result Comment: Diag nostic interpretation performed at [facility], [address] [place] [address] CLIA# [id number] Director: Lon Kaiser M.D. Performed By: #### L [id number] ####[facility] LABCLIA [id number] [place] [address] [place] MICROSCOPIC DESCRIPTION Normal [facility] Comment on above: Order Comment: Speci men Type: SLIDEOrdering Facility: AP Outside Review Address: , , Result Comment: The histologic sections show effacement of cynthia architecture by a nodular lymphoid proliferation. The proliferation contains moderately numerous large centroblastic cells admixed with small cleaved centrocytic cells. Flow cytometric studies performed at the referring institution are reported to demonstrate kappa restricted B-cell population positive for CD10.Immunohistochemical stains performed at the referring institution were reviewed at [facility]. The atypical lymphoid cells are positive for CD20, CD79a and CD45 that coexpress CD10, BCL6, and Bcl-2. They are negative for cyclin D1. The Ki-67 is up to 50% in the nodular areas. CD23 stain highlights follicular dendritic cell meshwork. CD21 and MUM1 stain could not be interpreted properly due to high background staining. The background T cells are highlighted by CD3 which are also positive for CD5 and CD43. Cytokeratin AE1/AE3 stain is negative.Further immunohistochemical stains were performed on block A2 (block A3 of referring institution) with appropriate controls at the [facility]. CD21 highlights follicular dendritic meshworks. MUM1 is positive in a subset of B cells. IgD stain is negative. Performed By: #### L [id number] ####[facility] LABIA [id number] [place] [address] [place] ORDER COMMENT Requested blocks 7/ 1 ABO Normal [facility] Comment on above: Order Comment: Speci men Type: SLIDEOrdering Facility: AP Outside Review Address: , , Performed By: #### L [id number] ####[facility] LABIA [id number] [place] [address] [place] CNOVSPon 05-22-2023 CNOVSP Normal [facility] CNPNon 05-21-2023 CNPN Normal [facility] CNPNon 05-19-2023 CNPN Normal [facility] Pathology Noteon 05-19-2023 Pathology Note [id number] 0CD:127 Normal [facility] CNPNon 05-16-2023 CNPN Normal [facility] Ambulatory Visit Summaryon 0 05-14-2023 Ambulatory Visit Summary KATIA FAULKNER :1955 Visit Date:05/14/2023 Ambulatory Visit Instructions Your Diagnosis Inguinal adenopathy Your Care Team Attending Physician - MIGUEL LOFTON, Elmer Martins Primary Care Physician - SANDRA LOFTON, EMELIA This Is Your Medications List Contact prescribing physician if questions or concerns levothyroxine (levothyroxine 125 mcg (0.125 mg) Tab) multivitamin (Multi Vitamins oral tablet) omega-3 polyunsaturated fatty acids (Fish Oil) Procedures Performed Biopsy of inguinal lymph node (05/07/2023), Thoracentesis (01/28/2002), Bronchoscopy (01/20/2002), Biopsy of lymph node. Medications What How Much When Instructions Unchanged levothyroxine (levothyroxine 125 mcg (0.125 mg) Tab) 1 Tablets By Mouth Every day Contact prescribing physician if questions or concerns Unchanged multivitamin (Multi Vitamins oral tablet) 1 Tablets By Mouth Every day Contact prescribing physician if questions or concerns Unchanged omega-3 polyunsaturated fatty acids (Fish Oil) as directed Contact prescribing physician if questions or concerns Allergies No Known Allergies No Known Medication Allergies Problems Ongoing - Any problem that you are currently receiving treatment for. BMI 25.0-25.9,adult Diffuse large B-cell lymphoma GERD (gastroesophageal reflux disease) Hypothyroidism Inguinal adenopathy Overweight Normal [facility] Consultation Noteon 05-14-20 Consultation Note [id number] 0CD:127 Normal [facility] ESR Westergren method (Bld) [Velocity]on 05-14-2023 ESR (Bld) [Velocity] 40 mm/h High 0 - 15 mm/hr [facility] General Surgery Office/Clini c Noteon 05-14-2023 General Surgery Office/Clinic Note Chief Complaint post operative follow up HPI Staff 7 day post operative follow up post incisional biopsy right infrainguinal lymph node. Minimal discomfort; taking Ibuprofen as needed. Denies bleeding or drainage. History of Present Illness 1 week s/p incisional biopsy of enlarged right inguinal lymph node; pathology pending; doing well, denies drainage; mild soreness. Review of Systems ROS - Provider Constitutional: no fever, no sweats, no weight loss. Eyes: no glasses, no blurred vision, no visual loss. ENMT: no dentures, no hoarseness, no swallowing difficulties, no hearing loss, no ear infection(s), no nose bleeds. Cardiovascular: normal blood pressure, no chest pain, regular heartbeat, no heart murmur. Respiratory: no shortness of breath, no cough, no asthma, no wheezing. Gastrointestinal: no nausea, no vomiting, no diarrhea, no constipation, no blood in stool, no change in bowel habits, no abdominal pain, no hepatitis. Genitourinary: no kidney stones, no urine infection, no dysuria. Musculoskeletal: no pain, no weakness. Skin: no changing moles, no rash, no skin lumps. Neurologic: no seizures, no epilepsy, no headache. Psychiatric: no emotional or psychiatric problem. Heme/Lymph: no bleeding problems, no anemia, no blood clots, no transfusions. Allergy/Immunologic: no swollen lymph nodes/glands, no IV drug abuse. Other: Additional ROS info: Except as noted in the above Review of Systems and in the History of Present Illness, all other systems have been reviewed and are negative or noncontributory. Physical Exam skin: incision healing well, no erythema or drainage, resolving ecchymosis. Assessment/Plan 1. Inguinal adenopathy (R59.0: Localized enlarged lymph nodes) doing well, will call patient with results; patient has f/u appointment with Oncology 05/22/23; call sooner if problems/questions. Follow-up No qualifying data available Problem List/Past Medical History Ongoing BMI 25.0-25.9,adult Diffuse large B-cell lymphoma GERD (gastroesophageal reflux disease) Hypothyroidism Inguinal adenopathy Overweight Historical No qualifying data Procedure/Surgical History Biopsy of inguinal lymph node (05/07/2023), Thoracentesis (01/28/2002), Bronchoscopy (01/20/2002), Biopsy of lymph node. Medications Fish Oil levothyroxine 125 mcg (0.125 mg) Tab, 125 mcg= 1 tab(s), Oral, Daily Multi Vitamins oral tablet, 1 tab(s), Oral, Daily Allergies No Known Allergies No Known Medication Allergies Social History Alcohol - Denies Alcohol Use, 04/29/2023 Substance Abuse - Denies Substance Abuse, 04/29/2023 Tobacco Former smoker, quit more than 30 days ago Tobacco Use:. Never Smokeless Tobacco Use:. Cigarettes, 1 per day. Started age 16.0 Years. Stopped age 46 Years., 04/29/2023 Family History Diabetes mellitus type 2: Mother. Heart disease: Mother. Hypertension: Mother. Primary malignant neoplasm of skin: Father. Normal [facility] Comment on above: Result Comment: Elec tronically Signed By: MIGUEL LOFTON, Elmer Mas\Date and Time Signed: 05/14/23 14:27 EDT B2 Microglob SerPl-mCncon Rvbz-5-Ssenlnwrlxgqr [Mass/Vol] 3.0 ug/mL Normal <3.1 [facility] Comment on above: Order Comment: Speci men Type: BLOOD SPECIMENOrdering Facility: [facility] Address: [address] [place] [address] Result Comment: Beta -2 Microglobulin test is performed using the [employer] immunoturbidimetric method. Results obtained with different methods or kits cannot be used interchangeably. Performed By: #### 1 952-1 ####[facility] LABCLIA [id number] [address] OF [facility] CBC W Auto Differential pane l (Bld)on 05-13-2023 Basophils (Bld) [#/Vol] 0.08 10*3/uL Normal <0.11 [facility] Comment on above: Order Comment: Speci men Type: BLOOD SPECIMENOrdering Facility: [facility] Address: [address] [place] [address] Performed By: #### 5 7021-8 ####[facility] LABCLIA [id number] [place] [address] Basophils/100 WBC (Bld) 0.8 % Normal [facility] Comment on above: Order Comment: Speci men Type: BLOOD SPECIMENOrdering Facility: [facility] Address: [address] [place] [address] Performed By: #### 5 7021-8 ####[facility] LABCLIA [id number] [place] [address] Differential cell count method Nom (Bld) Auto Normal [facility] Comment on above: Order Comment: Speci men Type: BLOOD SPECIMENOrdering Facility: [facility] Address: [address] [place] [address] Performed By: #### 5 7021-8 ####[facility] LABCLIA [id number] [place] [address] Eosinophils (Bld) [#/Vol] 0.27 10*3/uL Normal <0.46 [facility] Comment on above: Order Comment: Speci men Type: BLOOD SPECIMENOrdering Facility: [facility] Address: [address] [place] [address] Performed By: #### 5 7021-8 ####[facility] LABCLIA [id number] [place] [address] Eosinophils/100 WBC (Bld) 2.8 % Normal [facility] Comment on above: Order Comment: Speci men Type: BLOOD SPECIMENOrdering Facility: [facility] Address: [address] [place] [address] Performed By: #### 5 7021-8 ####[facility] LABCLIA [id number] [place] [address] Erythrocyte distribution width (RBC) [Ratio] 14.1 % Normal 11.5-15.0 [facility] Comment on above: Order Comment: Speci men Type: BLOOD SPECIMENOrdering Facility: [facility] Address: [address] [place] [address] Performed By: #### 5 7021-8 ####[facility] LABCLIA [id number] [place] [address] Hematocrit (Bld) [Volume fraction] 42.3 % Normal 39.0-51.0 [facility] Comment on above: Order Comment: Speci men Type: BLOOD SPECIMENOrdering Facility: [facility] Address: [address] [place] [address] Performed By: #### 5 7021-8 ####[facility] LABCLIA [id number] [place] [address] Hemoglobin (Bld) [Mass/Vol] 13.4 g/dL Normal 13.0-17.0 [facility] Comment on above: Order Comment: Speci men Type: BLOOD SPECIMENOrdering Facility: [facility] Address: [address] [place] [address] Performed By: #### 5 7021-8 ####[facility] LABCLIA [id number] [place] [address] Immature granulocytes (Bld) [#/Vol] 0.05 10*3/uL Normal <0.10 [facility] Comment on above: Order Comment: Speci men Type: BLOOD SPECIMENOrdering Facility: [facility] Address: [address] [place] [address] Performed By: #### 5 7021-8 ####[facility] LABCLIA [id number] [place] [address] Immature granulocytes/100 WBC (Bld) 0.5 % Normal [facility] Comment on above: Order Comment: Speci men Type: BLOOD SPECIMENOrdering Facility: [facility] Address: [address] [place] [address] Performed By: #### 5 7021-8 ####[facility] LABCLIA [id number] [place] [address] Lymphocytes (Bld) [#/Vol] 0.69 10*3/uL Low 1.00-4.00 [facility] Comment on above: Order Comment: Speci men Type: BLOOD SPECIMENOrdering Facility: [facility] Address: [address] [place] [address] Performed By: #### 5 7021-8 ####[facility] LABCLIA [id number] [place] [address] Lymphocytes/100 WBC (Bld) 7.1 % Normal [facility] Comment on above: Order Comment: Speci men Type: BLOOD SPECIMENOrdering Facility: [facility] Address: [address] [address] Performed By: #### 5 7021-8 ####[facility] LABIA [id number] [place] [address] MCH (RBC) [Entitic mass] 29.1 pg Normal 26.0-34.0 [facility] Comment on above: Order Comment: Speci men Type: BLOOD SPECIMENOrdering Facility: [facility] Address: [address] [place] [address] Performed By: #### 5 7021-8 ####[facility] LABIA [id number] [place] [address] MCHC (RBC) [Mass/Vol] 31.7 g/dL Normal 30.5-36.0 [facility] Comment on above: Order Comment: Speci men Type: BLOOD SPECIMENOrdering Facility: [facility] Address: [address] [place] [address] Performed By: #### 5 7021-8 ####[facility] LABIA [id number] [place] [address] MCV (RBC) [Entitic vol] 92.0 fL Normal 80.0-100.0 [facility] Comment on above: Order Comment: Speci men Type: BLOOD SPECIMENOrdering Facility: [facility] Address: [address] [place] [address] Performed By: #### 5 7021-8 ####[facility] LABIA [id number] [place] [address] Monocytes (Bld) [#/Vol] 1.11 10*3/uL High <0.87 [facility] Comment on above: Order Comment: Speci men Type: BLOOD SPECIMENOrdering Facility: [facility] Address: [address] [place] [address] Performed By: #### 5 7021-8 ####[facility] LABCLIA [id number] [place] [address] Monocytes/100 WBC (Bld) 11.5 % Normal [facility] Comment on above: Order Comment: Speci men Type: BLOOD SPECIMENOrdering Facility: [facility] Address: [address] [place] [address] Performed By: #### 5 7021-8 ####[facility] LABCLIA [id number] [place] [address] Neutrophils (Bld) [#/Vol] 7.47 10*3/uL Normal 1.45-7.50 [facility] Comment on above: Order Comment: Speci men Type: BLOOD SPECIMENOrdering Facility: [facility] Address: [address] [place] [address] Performed By: #### 5 7021-8 ####[facility] LABCLIA [id number] [place] [address] Neutrophils/100 WBC (Bld) 77.3 % Normal [facility] Comment on above: Order Comment: Speci men Type: BLOOD SPECIMENOrdering Facility: [facility] Address: [address] [place] [address] Performed By: #### 5 7021-8 ####[facility] LABCLIA [id number] [place] [address] Nucleated RBC (Bld) [#/Vol] 10*3/uL Normal <0.01 [facility] Comment on above: Order Comment: Speci men Type: BLOOD SPECIMENOrdering Facility: [facility] Address: [address] [place] [address] Performed By: #### 5 7021-8 ####[facility] LABCLIA [id number] [place] [address] Nucleated RBC/100 WBC (Bld) [Ratio] 0.0 /100 WBC Normal [facility] Comment on above: Order Comment: Speci men Type: BLOOD SPECIMENOrdering Facility: [facility] Address: [address] [address] Performed By: #### 5 7021-8 ####[facility] LABCLIA [id number] [place] [address] Platelet mean volume (Bld) [Entitic vol] 9.7 fL Normal 9.0-12.7 [facility] Comment on above: Order Comment: Speci men Type: BLOOD SPECIMENOrdering Facility: [facility] Address: [address] [address] Performed By: #### 5 7021-8 ####[facility] LABCLIA [id number] [place] [address] Platelets (Bld) [#/Vol] 306 10*3/uL Normal 150-400 [facility] Comment on above: Order Comment: Speci men Type: BLOOD SPECIMENOrdering Facility: [facility] Address: [address] [place] [address] Performed By: #### 5 7021-8 ####[facility] LABCLIA [id number] [place] [address] RBC (Bld) [#/Vol] 4.60 10*6/uL Normal 4.20-6.00 [facility] Comment on above: Order Comment: Speci men Type: BLOOD SPECIMENOrdering Facility: [facility] Address: [address] [place] [address] Performed By: #### 5 7021-8 ####[facility] LABCLIA [id number] [place] [address] WBC (Bld) [#/Vol] 9.67 10*3/uL Normal 3.70-11.00 [facility] Comment on above: Order Comment: Speci men Type: BLOOD SPECIMENOrdering Facility: [facility] Address: [address] [place] [address] Performed By: #### 5 7021-8 ####[facility] LABCLIA [id number] [place] [address] Basophils (Bld) [#/Vol] 0.08 10*3/uL <0.11 k/uL [facility] Basophils/100 WBC (Bld) 0.8 % C [facility] Differential cell count method Nom (Bld) Auto [facility] Eosinophils (Bld) [#/Vol] 0.27 10*3/uL <0.46 k/uL [facility] Eosinophils/100 WBC (Bld) 2.8 % [facility] Erythrocyte distribution width (RBC) [Ratio] 14.1 % 11.5 - 15.0 % [facility] Hematocrit (Bld) [Volume fraction] 42.3 % 39.0 - 51.0 % [facility] Hemoglobin (Bld) [Mass/Vol] 13.4 g/dL 13.0 - 17.0 g/dL [facility] Immature granulocytes (Bld) [#/Vol] 0.05 10*3/uL <0.10 k/uL [facility] Immature granulocytes/100 WBC (Bld) 0.5 % [facility] Lymphocytes (Bld) [#/Vol] 0.69 10*3/uL Low 1.00 - 4.00 k/uL [facility] Lymphocytes/100 WBC (Bld) 7.1 % [facility] MCH (RBC) [Entitic mass] 29.1 pg 26. 0 - 34.0 pg [facility] MCHC (RBC) [Mass/Vol] 31.7 g/dL 30.5 - 36.0 g/dL [facility] MCV (RBC) [Entitic vol] 92.0 fL 80.0 - 100.0 fL [facility] Monocytes (Bld) [#/Vol] 1.11 10*3/uL High <0.87 k/uL [facility] Monocytes/100 WBC (Bld) 11.5 % C [facility] Neutrophils (Bld) [#/Vol] 7.47 10*3/uL 1.45 - 7.50 k/uL [facility] Neutrophils/100 WBC (Bld) 77.3 % [facility] Nucleated RBC (Bld) [#/Vol] <0.01 k/uL [facility] Nucleated RBC/100 WBC (Bld) [Ratio] 0.0 /100 WBC [facility] Platelet mean volume (Bld) [Entitic vol] 9.7 fL 9.0 - 12.7 fL [facility] Platelets (Bld) [#/Vol] 306 10*3/uL 150 - 400 k/uL [facility] RBC (Bld) [#/Vol] 4.60 10*6/uL 4.20 - 6.0 0 m/uL [facility] WBC (Bld) [#/Vol] 9.67 10*3/uL 3.70 - 11. 00 k/uL [facility] CNOVSPon 05-13-2023 CNOVSP Normal [facility] Comprehensive metabolic 2000 panelon 05-13-2023 Albumin [Mass/Vol] 3.9 g/dL Normal 3.9-4.9 [facility] Comment on above: Order Comment: Speci men Type: BLOOD SPECIMENOrdering Facility: [facility] Address: [address] [place] [address] Performed By: #### 2 532-0, 98197-2 ####[facility] LABCLIA [id number] [place] [address] ALP [Catalytic activity/Vol] 244 U/L High 38-113 [facility] Comment on above: Order Comment: Speci men Type: BLOOD SPECIMENOrdering Facility: [facility] Address: [address] [place] [address] Performed By: #### 2 532-0, 81271-7 ####[facility] LABCLIA [id number] [place] [address] ALT [Catalytic activity/Vol] 19 U/L Normal 10-54 [facility] Comment on above: Order Comment: Speci men Type: BLOOD SPECIMENOrdering Facility: [facility] Address: [address] [place] [address] Performed By: #### 2 532-0, 59720-6 ####[facility] LABCLIA [id number] [place] [address] Anion gap [Moles/Vol] 12 mmol/L Normal 9-18 [facility] Comment on above: Order Comment: Speci men Type: BLOOD SPECIMENOrdering Facility: [facility] Address: [address] [address] Performed By: #### 2 532-0, ####[facility] LABCLIA [id number] [place] [address] AST [Catalytic activity/Vol] 22 U/L Normal 14-40 [facility] Comment on above: Order Comment: Speci men Type: BLOOD SPECIMENOrdering Facility: [facility] Address: [address] [address] Performed By: #### 2 532-0, ####[facility] LABIA [id number] [place] [address] Bilirubin [Mass/Vol] 0.4 mg/dL Normal 0.2-1.3 [facility] Comment on above: Order Comment: Speci men Type: BLOOD SPECIMENOrdering Facility: [facility] Address: [address] [address] Performed By: #### 2 532-0, ####[facility] LABIA [id number] [place] [address] Calcium [Mass/Vol] 9.5 mg/dL Normal 8.5-10.2 [facility] Comment on above: Order Comment: Speci men Type: BLOOD SPECIMENOrdering Facility: [facility] Address: [address] [place] [address] Performed By: #### 2 532-0, ####[facility] LABIA [id number] [place] [address] Chloride [Moles/Vol] 103 mmol/L Normal 97-105 [facility] Comment on above: Order Comment: Speci men Type: BLOOD SPECIMENOrdering Facility: [facility] Address: [address] [address] Performed By: #### 2 532-0, ####[facility] LABCLIA [id number] [place] [address] CO2 [Moles/Vol] 24 mmol/L Normal 22-30 [facility] Comment on above: Order Comment: Speci men Type: BLOOD SPECIMENOrdering Facility: [facility] Address: [address] [place] [address] Performed By: #### 2 532-0, 48538-8 ####[facility] LABCLIA [id number] [place] [address] Creatinine [Mass/Vol] 0.89 mg/dL Normal 0.73-1.22 [facility] Comment on above: Order Comment: Speci men Type: BLOOD SPECIMENOrdering Facility: [facility] Address: [address] [place] [address] Performed By: #### 2 532-0, 08688-9 ####[facility] LABIA [id number] [place] [address] ESTIMATED GLOMERULAR FILTRATION RATE 95 mL/min/1.73m??? Normal >=60 [facility] Comment on above: Order Comment: Speci men Type: BLOOD SPECIMENOrdering Facility: [facility] Address: [address] [place] [address] Result Comment: Carol mated Glomerular Filtration Rate (eGFR) is calculated using the 2020 CKD-EPI creatinine equation. This equation utilizes serum creatinine, sex, and age as parameters. The creatinine assay has traceable calibration to isotope dilution-mass spectrometry. Refer to KDIGO guidelines for clinical interpretation. In patients with unstable renal function, e.g. those with acute kidney injury, the eGFR may not accurately reflect actual GFR. Performed By: #### 2 532-0, 76739-2 ####[facility] LABIA [id number] [place] [address] Glucose [Mass/Vol] 96 mg/dL Normal 74-99 [facility] Comment on above: Order Comment: Speci men Type: BLOOD SPECIMENOrdering Facility: [facility] Address: [address] [place] [address] Result Comment: The [place] [employer] (ADA) provides guidance for cutoff values for fasting glucose and random glucose. The ADA defines fasting as no caloric intake for at least 8 hours. Fasting plasma glucose results between 100 to 125 mg/dL indicate increased risk for diabetes (prediabetes).Fasting plasma glucose results greater than or equal to 126 mg/dL meet the criteria for diagnosis of diabetes. In the absence of unequivocal hyperglycemia, results should be confirmed by repeat testing. In a patient with classic symptoms of hyperglycemia or hyperglycemic crisis, random plasma glucose results greater than or equal to 200 mg/dL meet the criteria for diagnosis of diabetes.Reference: Standards of Medical Care in Diabetes 2016, [place] [employer]. Diabetes Care. 2016.39(Suppl 1). Performed By: #### 2 532-0, ####[facility] LABCLIA [id number] [place] [address] Potassium [Moles/Vol] 4.4 mmol/L Normal 3.7-5.1 [facility] Comment on above: Order Comment: Speci men Type: BLOOD SPECIMENOrdering Facility: [facility] Address: [address] [address] Performed By: #### 2 532-0, ####[facility] LABCLIA [id number] [place] [address] Protein [Mass/Vol] 7.9 g/dL Normal 6.3-8.0 [facility] Comment on above: Order Comment: Speci men Type: BLOOD SPECIMENOrdering Facility: [facility] Address: [address] Performed By: #### 2 532-0, ####[facility] LABCLIA [id number] [place] [address] Sodium [Moles/Vol] 139 mmol/L Normal 136-144 [facility] Comment on above: Order Comment: Speci men Type: BLOOD SPECIMENOrdering Facility: [facility] Address: [address] [address] Performed By: #### 2 532-0, 00971-5 ####[facility] LABCLIA [id number] [place] [address] Urea nitrogen [Mass/Vol] 19 mg/dL Normal 9-24 [facility] Comment on above: Order Comment: Speci men Type: BLOOD SPECIMENOrdering Facility: [facility] Address: [place] [address] Performed By: #### 2 532-0, 74438-0 ####[facility] LABCLIA [id number] [place] [address] Albumin [Mass/Vol] 3.9 g/dL 3.9 - 4.9 g/dL [facility] ALP [Catalytic activity/Vol] 244 U/L High 38 - 113 U/L [facility] ALT [Catalytic activity/Vol] 19 U/L 10 - 54 U/L [facility] Anion gap [Moles/Vol] 12 mmol/L 9 - 18 mmol/L [facility] AST [Catalytic activity/Vol] 22 U/L 14 - 40 U/L [facility] Bilirubin [Mass/Vol] 0.4 mg/dL 0.2 - 1 .3 mg/dL [facility] Calcium [Mass/Vol] 9.5 mg/dL 8.5 - 10. 2 mg/dL [facility] Chloride [Moles/Vol] 103 mmol/L 97 - 10 5 mmol/L [facility] CO2 [Moles/Vol] 24 mmol/L 22 - 30 mmol/L [facility] Creatinine [Mass/Vol] 0.89 mg/dL 0.73 - 1.22 mg/dL [facility] Estimated Glomerular Filtration Rate 95 mL/min/1.73m >=60 mL/min/1.73m [facility] Glucose [Mass/Vol] 96 mg/dL 74 - 99 mg/dL [facility] Potassium [Moles/Vol] 4.4 mmol/L 3.7 - 5.1 mmol/L [facility] Protein [Mass/Vol] 7.9 g/dL 6.3 - 8.0 g/dL [facility] Sodium [Moles/Vol] 139 mmol/L 136 - 144 mmol/L [facility] Urea nitrogen [Mass/Vol] 19 mg/dL 9 - 24 mg/d L [facility] ESR Westergren method (Bld) [Velocity]on 05-13-2023 ESR (Bld) [Velocity] 40 mm/h High 0-15 [facility] Comment on above: Order Comment: Speci men Type: BLOOD SPECIMENOrdering Facility: [facility] Address: [address] [place] [address] Performed By: #### 4 537-7 ####[facility] LABIA [id number] [address] [place] HBV core Ab Ser Qlon 023 HBV core Ab Ql (S) Negative Normal Negative [facility] Comment on above: Order Comment: Speci men Type: BLOOD SPECIMENOrdering Facility: [facility] Address: [address] [place] [address] Result Comment: No e vidence of current or past infection with Hepatitis B virus. Should recent infection be suspected, repeat testing may be considered 3-4 weeks after this draw. Performed By: #### 2 2322-2, 70224-7, 5195-3 ####[facility] LABIA [id number] [address] [place] HBV surface Ab Ql (S)on 05-03 HBV surface Ab Qn (S) <8.00 Low >=12.00 [facility] Comment on above: Order Comment: Speci men Type: BLOOD SPECIMENOrdering Facility: [facility] Address: [address] [place] [address] Performed By: #### 2 2322-2, 37666-9, 5195-3 ####[facility] LABIA [id number] [address] [place] HBV surface Ab Ser Qlon 05-03 HBV surface Ab Ql (S) Negative Abnormal Positive [facility] Comment on above: Order Comment: Speci men Type: BLOOD SPECIMENOrdering Facility: [facility] Address: [address] [address] Result Comment: No e vidence of antibodies to Hepatitis B surface antigen. Performed By: #### 2 2322-2, 07175-5, 5195-3 ####[facility] LABCLIA [id number] [address] [place] HBV surface Ag Ser Qlon 05-03 HBV surface Ag Ql (S) Negative Normal Negative [facility] Comment on above: Order Comment: Speci men Type: BLOOD SPECIMENOrdering Facility: [facility] Address: [address] [place] [address] Performed By: #### 2 2322-2, 08160-6, 5195-3 ####[facility] LABCLIA [id number] [address] [place] HCV Ab Ser Qlon 05-13-2023 HCV Ab Ql (S) Negative Normal Negative [facility] Comment on above: Order Comment: Speci men Type: BLOOD SPECIMENOrdering Facility: [facility] Address: [address] [place] [address] Result Comment: The result suggests no evidence of active infection with Hepatitis C virus. Should recent infection be suspected, repeat testing may be considered 4-6 weeks after this draw. Performed By: #### 1 6128-1 ####[facility] LABCLIA [id number] [place] [address] [place] LD LACTATE DEHYDROon 023 LDH [Catalytic activity/Vol] 420 U/L High 135 - 225 U/L [facility] LDH SerPl-cCncon 05-13-2023 LDH [Catalytic activity/Vol] 420 U/L High 135-225 [facility] Comment on above: Order Comment: Speci men Type: BLOOD SPECIMENOrdering Facility: [facility] Address: [address] [place] [address] Performed By: #### 2 532-0, 57401-6 ####[facility] LABCLIA [id number] [place] [address] Operative Reporton Operative Report [id number]#1.0 0CD:127 Normal [facility] ECG 12-Leadon 05-02-2023 ECG 12-Lead [id number]#1.0 0CD:127 Normal [facility] Consent for Procedure/Surger yon 04-30-2023 Consent for Procedure/Surgery [id number]#1.0 0CD:127 Normal [facility] Facesheeton 04-30-2023 Facesheet [id number]#1.0 0CD:127 [facility] Ambulatory Visit Summaryon 0 04-29-2023 Ambulatory Visit Summary KATIA FAULKNER :1955 Visit Date:04/29/2023 Ambulatory Visit Instructions Your Care Team Attending Physician - Elmer JUNG MD Primary Care Physician - EMELIA GONZALEZ MD Referring Physician - EMELIA GONZALEZ MD This Is Your Medications List Contact prescribing physician if questions or concerns levothyroxine (levothyroxine 125 mcg (0.125 mg) Tab) multivitamin (Multi Vitamins oral tablet) omega-3 polyunsaturated fatty acids (Fish Oil) Procedures Performed Thoracentesis (01/28/2002), Bronchoscopy (01/20/2002), Biopsy of lymph node. Discharge Vitals Heart Rate (Peripheral) 72 Respiratory Rate 16 Blood Pressure 122/76 Height 177.8 cm Height 70 in Weight 80 kg Weight 176 lb BMI 25.31 Medications What How Much When Instructions Unchanged levothyroxine (levothyroxine 125 mcg (0.125 mg) Tab) 1 Tablets By Mouth Every day Contact prescribing physician if questions or concerns Unchanged multivitamin (Multi Vitamins oral tablet) 1 Tablets By Mouth Every day Contact prescribing physician if questions or concerns Unchanged omega-3 polyunsaturated fatty acids (Fish Oil) as directed Contact prescribing physician if questions or concerns Allergies No Known Allergies No Known Medication Allergies Problems Ongoing - Any problem that you are currently receiving treatment for. BMI 25.0-25.9,adult Diffuse large B-cell lymphoma GERD (gastroesophageal reflux disease) Hypothyroidism Overweight Normal [facility] RAD - Pet Scan Reporton 04-04 RAD - Pet Scan Report [id number] CD:127 Normal [facility] Physician Referralon 023 Physician Referral [id number] CD:127 Normal [facility] CBC with Auto Differentialon 04-02-2023 Basophils (Bld) [#/Vol] 0.08 10*3/uL [facility] Basophils/100 WBC (Bld) 1 % 0 - 2 % B ON [facility] Eosinophils (Bld) [#/Vol] 0.23 10*3/uL [facility] Eosinophils/100 WBC (Bld) 2 % 1 - 4 % [facility] Erythrocyte distribution width (RBC) [Ratio] 13.5 % 11.8 - 14.4 % [facility] Hematocrit (Bld) [Volume fraction] 42.8 % 40.7 - 50.3 % [facility] Hemoglobin (Bld) [Mass/Vol] 14.3 g/dL 13.0 - 17.0 g/dL [facility] Immature granulocytes (Bld) [#/Vol] 0.04 10*3/uL [facility] Immature granulocytes/100 WBC (Bld) 0 % 0 [facility] Interpretation and review of laboratory results Abnormal [facility] Lymphocytes/100 WBC (Bld) 6 % Low 24 - 43 % [facility] Lymphocytes/100 WBC (Bld) 0.65 % Low [facility] MCH (RBC) [Entitic mass] 30.6 pg 25. 2 - 33.5 pg [facility] MCHC (RBC) [Mass/Vol] 33.4 g/dL 28.4 - 34.8 g/dL [facility] MCV (RBC) [Entitic vol] 91.5 fL 82.6 - 102.9 fL [facility] Monocytes/100 WBC (Bld) 12 % 3 - 12 % B ON [facility] Monocytes/100 WBC (Bld) 1.32 % High B ON [facility] Neutrophils/100 WBC (Bld) 79 % High 36 - 65 % [facility] NRBC Automated 0.0 0.0 per 100 WBC [facility] Platelet mean volume (Bld) [Entitic vol] 10.2 fL 8.1 - 13.5 fL [facility] Platelets (Bld) [#/Vol] 195 10*3/uL [facility] RBC (Bld) [#/Vol] 4.68 10*6/uL 4.21 - 5.7 7 m/uL [facility] Segmented neutrophils/100 WBC (Bld) 8.84 % High [facility] WBC other (Bld) [#/Vol] 11.2 [facility] CBC with Diffon 04-02-2023 Abs. Basophil 0.08 k/uL Normal 0.00-0.20 [facility] Comment on above: Performed By: #### C P, CDP #### [facility] [address] [place] [address] [place] [address] Tempering Machine Operator: Rasta Mohr MD Abs.Imm.Granulocyte 0.04 k/uL Normal 0.00-0.30 [facility] Comment on above: Performed By: #### C P, CDP #### [facility] [address] [place], [facility] Tempering Machine Operator: Rasta Mohr MD Abs.Neutrophil (Seg) 8.84 k/uL High 1.50-8.10 [facility] Comment on above: Performed By: #### C P, CDP #### [facility] [address] [place] [address] Dr. [place], [facility] Tempering Machine Operator: Rasta Mohr MD Basophils/100 WBC (Bld) 1 % Normal 0-2 [facility] Comment on above: Performed By: #### C P, CDP #### [facility] [address] [place], [place] [address] Tempering Machine Operator: Rasta Mohr MD Eosinophils (Bld) [#/Vol] 0.23 10*3/uL Normal 0.00-0.44 [facility] Comment on above: Performed By: #### C P, CDP #### [address] [place], [facility] Tempering Machine Operator: Rasta Mohr MD Eosinophils/100 WBC (Bld) 2 % Normal 1-4 [facility] Comment on above: Performed By: #### C P, CDP #### [address] [place], [facility] Tempering Machine Operator: Rasta Mohr MD Erythrocyte distribution width (RBC) [Ratio] 13.5 % Normal 11.8-14.4 [facility] Comment on above: Performed By: #### C P, CDP #### [address] [place], [place] [address] Tempering Machine Operator: Rasta Mohr MD Hematocrit (Bld) [Volume fraction] 42.8 % Normal 40.7-50.3 [facility] Comment on above: Performed By: #### C P, CDP #### [address] [place], [facility] Tempering Machine Operator: Rasta Mohr MD Hemoglobin (Bld) [Mass/Vol] 14.3 g/dL Normal 13.0-17.0 [facility] Comment on above: Performed By: #### C P, CDP #### [address] [place], [facility] Tempering Machine Operator: Rasta Mohr MD Immature granulocytes/100 WBC (Bld) 0 % Normal 0 [facility] Comment on above: Performed By: #### C P, CDP #### [address] [place], [facility] Tempering Machine Operator: Rasta Mohr MD Lymphocytes (Bld) [#/Vol] 0.65 10*3/uL Low 1.10-3.70 [facility] Comment on above: Performed By: #### C P, CDP #### [facility] [address] [place] [address] Tempering Machine Operator: Rasta Mohr MD Lymphocytes/100 WBC (Bld) 6 % Low 24-43 [facility] Comment on above: Performed By: #### C P, CDP #### [facility] [address] [place], [facility] Tempering Machine Operator: Rasta Mohr MD MCH (RBC) [Entitic mass] 30.6 pg Normal 25.2-33.5 [facility] Comment on above: Performed By: #### C P, CDP #### [address] [place], [place] [address] Tempering Machine Operator: Rasta Mohr MD MCHC (RBC) [Mass/Vol] 33.4 g/dL Normal 28.4-34.8 [facility] Comment on above: Performed By: #### C P, CDP #### [address] [place], [facility] ( Tempering Machine Operator: Rasta Mohr MD MCV (RBC) [Entitic vol] 91.5 fL Normal 82.6-102.9 [facility] Comment on above: Performed By: #### C P, CDP #### [facility] [address] [place] [address] Dr. [place], [facility] Tempering Machine Operator: Rasta Mohr MD Monocytes (Bld) [#/Vol] 1.32 10*3/uL High 0.10-1.20 [facility] Comment on above: Performed By: #### C P, CDP #### [facility] [address] [place] [address] Tempering Machine Operator: Rasta Mohr MD Monocytes/100 WBC (Bld) 12 % Normal 3-12 [facility] Comment on above: Performed By: #### C P, CDP #### [facility] [address] [place], [place] [id number] Tempering Machine Operator: Rasta Mohr MD Neutrophil (Seg) 79 % High 36-65 [facility] Comment on above: Performed By: #### C P, CDP #### [facility] [address] [place], [place] [id number] Tempering Machine Operator: Rsata Mohr MD NRBC Automated 0.0 per 100 WBC Normal 0.0 [facility] Comment on above: Performed By: #### C P, CDP #### [facility] [address] [place], [place] [phone] Tempering Machine Operator: Rasta Mohr MD Platelet mean volume (Bld) [Entitic vol] 10.2 fL Normal 8.1-13.5 [facility] Comment on above: Performed By: #### C P, CDP #### [address] [place], [place] [id number] Tempering Machine Operator: Rasta Mohr MD Platelets (Bld) [#/Vol] 195 10*3/uL Normal 138-453 [facility] Comment on above: Performed By: #### C P, CDP #### [address] [place] [address] Tempering Machine Operator: Rasta Mohr MD RBC (Bld) [#/Vol] 4.68 10*6/uL Normal 4.21-5.77 [facility] Comment on above: Performed By: #### C P, CDP #### [address] [place], [place] [phone] Tempering Machine Operator: Rasta Mohr MD WBC (Bld) [#/Vol] 11.2 10*3/uL Normal 3.5-11.3 [facility] Comment on above: Performed By: #### C P, CDP #### [facility] [address] [place], [place] [phone] Tempering Machine Operator: Rasta Mohr MD Comp Metabolic Profon 2022 Albumin [Mass/Vol] 3.9 g/dL Normal 3.5-5.2 [facility] Comment on above: Performed By: #### C P, CDP #### [facility] [address] [place], [place] [phone] Tempering Machine Operator: Rasta Mohr MD Albumin/Glob Ratio 0.9 Low 1.0-2.5 [facility] Comment on above: Performed By: #### C P, CDP #### [facility] [address] [place], [place] [phone] Tempering Machine Operator: Rasta Mohr MD Alkaline Phos 201 U/L High 40-129 [facility] Comment on above: Performed By: #### C P, CDP #### [facility] [address] [place] [address] Tempering Machine Operator: Rasta Mohr MD ALT [Catalytic activity/Vol] 15 U/L Normal 5-41 [facility] Comment on above: Performed By: #### C P, CDP #### [facility] [address] [place], [place] [phone] Tempering Machine Operator: Rasta Mohr MD Anion gap [Moles/Vol] 11 mmol/L Normal 9-17 [facility] Comment on above: Performed By: #### C P, CDP #### [facility] [address] [place], [place] [address]186383 Tempering Machine Operator: Rasta Mohr MD AST [Catalytic activity/Vol] 19 U/L Normal <40 [facility] Comment on above: Performed By: #### C P, CDP #### [facility] [address] [place], [place] [phone] Tempering Machine Operator: Rasta Mohr MD Bilirubin [Mass/Vol] 0.4 mg/dL Normal 0.3-1.2 [facility] Comment on above: Performed By: #### C P, CDP #### [facility] [address] [place], [place] [phone] Tempering Machine Operator: Rasta Mohr MD BUN/CRE Ratio 20 Normal 9-20 [facility] Comment on above: Performed By: #### C P, CDP #### [facility] [address] [place] [address] Tempering Machine Operator: Rasta Mohr MD Calcium [Mass/Vol] 9.4 mg/dL Normal 8.6-10.4 [facility] Comment on above: Performed By: #### C P, CDP #### [facility] [address] [place], [place] [phone] Tempering Machine Operator: Rasta Mohr MD Chloride [Moles/Vol] 102 mmol/L Normal 98-107 [facility] Comment on above: Performed By: #### C P, CDP #### [facility] [address] [place] [address] Tempering Machine Operator: Rasta Mohr MD CO2 [Moles/Vol] 25 mmol/L Normal 20-31 [facility] Comment on above: Performed By: #### C P, CDP #### [facility] [address] [place] [address] Tempering Machine Operator: Rasta Mohr MD Creatinine [Mass/Vol] 0.84 mg/dL Normal 0.70-1.20 [facility] Comment on above: Performed By: #### C P, CDP #### [facility] [address] [place] [address] Tempering Machine Operator: Rasta Mohr MD GFR/1.73 sq M.predicted among non-blacks MDRD (S/P/Bld) [Vol rate/Area] mL/min/{1.73_m2} Normal >60 [facility] Comment on above: Result Comment: These results are not intended for use in patients <18 years of age. eGFR results are calculated without a race factor using the 2020 CKD-EPI equation. Careful clinical correlation is recommended, particularly when comparing to results calculated using previous equations. The CKD-EPI equation is less accurate in patients with extremes of muscle mass, extra-renal metabolism of creatine, excessive creatine ingestion, or following therapy that affects renal tubular secretion. Performed By: #### C P, CDP #### [facility] [address] [place] [address] Tempering Machine Operator: Rasta Mohr MD Glucose [Mass/Vol] 101 mg/dL High 70-99 [facility] Comment on above: Performed By: #### C P, CDP #### [address] [place], [place] [phone] Tempering Machine Operator: Rasta Mohr MD Potassium [Moles/Vol] 4.3 mmol/L Normal 3.7-5.3 [facility] Comment on above: Performed By: #### C P, CDP #### [address] [place], [place] [phone] Tempering Machine Operator: Rasta Mohr MD Protein [Mass/Vol] 8.1 g/dL Normal 6.4-8.3 [facility] Comment on above: Performed By: #### C P, CDP #### [address] [place], [place] [phone] Tempering Machine Operator: Rasta Mohr MD Sodium [Moles/Vol] 138 mmol/L Normal 135-144 [facility] Comment on above: Performed By: #### C P, CDP #### [facility] [address] [place] [address] Tempering Machine Operator: Rasta Mohr MD Urea nitrogen [Mass/Vol] 17 mg/dL Normal 8-23 [facility] Comment on above: Performed By: #### C P, CDP #### [facility] [address] [place] [address] Tempering Machine Operator: Rasta Mohr MD Comprehensive Metabolic Pane [facility] 04-02-2023 Albumin [Mass/Vol] 3.9 g/dL 3.5 - 5.2 g/dL [facility] Albumin/Globulin [Mass ratio] 0.9 {ratio} Low 1.0 - 2.5 [facility] ALP [Catalytic activity/Vol] 201 U/L High 40 - 129 U/L [facility] ALT [Catalytic activity/Vol] 15 U/L 5 - 41 U/L [facility] Anion gap [Moles/Vol] 11 mmol/L 9 - 17 mmol/L [facility] AST [Catalytic activity/Vol] 19 U/L NINF - 40 U/L [facility] Bilirubin [Mass/Vol] 0.4 mg/dL 0.3 - 1 .2 mg/dL [facility] Calcium [Mass/Vol] 9.4 mg/dL 8.6 - 10. 4 mg/dL [facility] Chloride [Moles/Vol] 102 mmol/L 98 - 10 7 mmol/L [facility] CO2 [Moles/Vol] 25 mmol/L 20 - 31 mmol/L [facility] Creatinine [Mass/Vol] 0.84 mg/dL 0.70 - 1.20 mg/dL [facility] GFR/1.73 sq M.predicted MDRD (S/P/Bld) [Vol rate/Area] - PINF [facility] Comment on above: These results are not intended for use in patients <18 years of age. eGFR results are calculated without a race factor using the 2020 CKD-EPI equation. Careful clinical correlation is recommended, particularly when comparing to results calculated using previous equations. The CKD-EPI equation is less accurate in patients with extremes of muscle mass, extra-renal metabolism of creatine, excessive creatine ingestion, or following therapy that affects renal tubular secretion. Glucose [Mass/Vol] 101 mg/dL High 70 - 99 mg/dL [facility] Interpretation and review of laboratory results Abnormal [facility] Potassium [Moles/Vol] 4.3 mmol/L 3.7 - 5.3 mmol/L [facility] Protein [Mass/Vol] 8.1 g/dL 6.4 - 8.3 g/dL [facility] Sodium [Moles/Vol] 138 mmol/L 135 - 144 mmol/L [facility] Urea nitrogen [Mass/Vol] 17 mg/dL 8 - 23 mg/d L [facility] Urea nitrogen/Creatinine [Mass ratio] 20 mg/mg 9 - 20 [facility] TSHon 04-02-2023 TSH [Mass/Vol] 0.52 [facility] Thyroid Stim. Horm.on 2022 Thyroid Stim. Horm. 0.52 uIU/mL Normal 0.30-5.00 [facility] Comment on above: Performed By: #### T SH #### [facility] [address] [place] [address] Tempering Machine Operator: Rasta Mohr MD CBC Auto DifferentialOrdered By: Maritza Mendoza on 04-05-2021 Absolute Eos # 0.24 [facility] Work Phone: Absolute Immature Granulocyte 0.03 [facility] Work Phone: Absolute Lymph # 1.16 [facility] Work Phone: Absolute Gilliam # 0.[address] [facility] Work Phone: Basophils (Bld) [#/Vol] 0.05 10*3/uL [facility] Work Phone: Basophils/100 WBC (Bld) 1 % 0 - 2 % M [facility] Work Phone: Differential Type NOT REPORTED [facility] Work Phone: Eosinophils/100 WBC (Bld) 4 % 1 - 4 % [facility] Work Phone: Hematocrit (Bld) [Volume fraction] 47.7 % 40.7 - 50.3 % [facility] Work Phone: Hemoglobin.gastrointesti nal spec 1 Ql (Stl) 15.6 g/dL 13.0 - 17.0 g/dL [employer] Phone: Immature granulocytes/100 WBC (Bld) 1 % High 0 [employer] Phone: Interpretation and review of laboratory results Abnormal [employer] Phone: Lymphocytes/100 WBC (Bld) 18 % Low 24 - 43 % [employer] Phone: MCH (RBC) [Entitic mass] 31.0 pg 25. 2 - 33.5 pg [employer] Phone: MCHC (RBC) [Mass/Vol] 32.7 g/dL 28.4 - 34.8 g/dL [employer] Phone: MCV (RBC) [Entitic vol] 94.6 fL 82.6 - 102.9 fL [employer] Phone: Monocytes/100 WBC (Bld) 12 % 3 - 12 % [facility] [employer] Phone: NRBC Automated 0.0 0.0 per 100 WBC [employer] Phone: Platelet distribution width (Bld) [Ratio] 13.2 % 11.8 - 14.4 % [employer] Phone: Platelet Estimate NOT REPORTED [employer] Phone: Platelet mean volume (Bld) [Entitic vol] 10.1 fL 8.1 - 13.5 fL [employer] Phone: Platelets (Bld) [#/Vol] 193 10*3/uL [employer] Phone: RBC (Bld) [#/Vol] 5.04 10*6/uL 4.21 - 5.7 7 m/uL [employer] Phone: RBC (Bld) [#/Vol] NOT REPORTED [employer] Phone: Segmented neutrophils/100 WBC (Bld) 64 % 36 - 65 % [employer] Phone: Segs Absolute 4.19 [employer] Work Phone: WBC (Bld) [#/Vol] 6.5 10*3/uL [employer] Phone: WBC (Bld) [#/Vol] NOT REPORTED [employer] Phone: [facility] Work Phone: Comprehensive Metabolic Pane lOrdered By: Maritza Mendoza on 04-05-2021 Albumin [Mass/Vol] 4.2 g/dL 3.5 - 5.2 g/dL [employer] Phone: Albumin/Globulin [Mass ratio] 1.0 {ratio} [employer] Phone: ALP (Bld) [Catalytic activity/Vol] 187 U/L High 40 - 129 U/L [facility] Work Phone: ALT [Catalytic activity/Vol] 23 U/L 5 - 41 U/L [employer] Phone: Anion gap [Moles/Vol] 10 mmol/L 9 - 17 mmol/L [employer] Phone: AST [Catalytic activity/Vol] 21 U/L <40 [employer] Phone: Bilirubin [Mass/Vol] 0.34 mg/dL 0.3 - 1 .2 mg/dL [employer] Phone: Calcium [Mass/Vol] 9.5 mg/dL 8.6 - 10. 4 mg/dL [employer] Phone: Chloride [Moles/Vol] 102 mmol/L 98 - 10 7 mmol/L [employer] Phone: CO2 [Moles/Vol] 26 mmol/L 20 - 31 mmol/L [employer] Phone: Creatinine [Mass/Vol] 0.82 mg/dL 0.70 - 1.20 mg/dL [employer] Phone: Free PSA/Total PSA [Mass fraction] 8.3 g/dL 6.4 - 8.3 g/dL [employer] Phone: GFR >60 >60 mL/min [employer] Phone: GFR Non- >60 >60 mL/min [employer] Phone: Glucose [Mass/Vol] 97 mg/dL 70 - 99 mg/dL [facility] Phone: Interpretation and review of laboratory results Abnormal [employer] Phone: Potassium [Moles/Vol] 4.2 mmol/L 3.7 - 5.3 mmol/L [employer] Phone: Sodium [Moles/Vol] 138 mmol/L 135 - 144 mmol/L [employer] Phone: Urea nitrogen (BldV) [Mass/Vol] 16 mg/dL 8 - 23 mg/dL [employer] Phone: Urea nitrogen/Creatinine (Bld) [Mass ratio] 20 [employer] Phone: Laboratory - Chemistry and C hemistry - challengeOrdered By: Maritza Mendoza on 04-05-2021 GFR/1.73 sq M.predicted MDRD (S/P/Bld) [Vol rate/Area] [employer] Phone: Comment on above: Average GFR for 60-6 9 years old: 85 mL/min/1.73sq m Chronic Kidney Disease: <60 mL/min/1.73sq m Kidney failure: <15 mL/min/1.73sq m eGFR calculated using average adult body mass. Additional eGFR calculator available at: http://www.[employer]/multiple_crcl_2012.htm Stage 1: Some kidney damage normal GFR Stage 2: Mild kidney damage GFR 60-89 Stage 3: Moderate kidney damage GFR 30-59 Stage 4: Severe kidney damage GFR 15-29 Stage 5: Severe kidney damage GFR <15 ESRD - chronic treatment by dialysis or transplant Lactate DehydrogenaseOrdered By: Maritza Mendoza on 04-05-2021 LD 163 U/L 135 - 225 U/L [employer] Phone: No Panel InformationOrdered By: Maritza Mendoza on 04-05-2021 [employer] Phone: TSH without ReflexOrdered By : Maritza Mendoza on 04-05-2021 Interpretation and review of laboratory results Abnormal [employer] Phone: TSH Qn 0.19 m[IU]/L Low [employer] Phone: [employer] Phone: CBC Auto Differentialon 04-03 Basophils (Bld) [#/Vol] 0.07 10*3/uL [place] Basophils/100 WBC (Bld) 1 % 0 - 2 % [place] Differential Type NOT REPORTED [place] Eosinophils (Bld) [#/Vol] 0.24 10*3/uL [place] Eosinophils/100 WBC (Bld) 4 % 1 - 4 % [place] Erythrocyte distribution width (RBC) [Ratio] 13.5 % 11.8 - 14.4 % [place] Hematocrit (Bld) [Volume fraction] 48.7 % 40.7 - 50.3 % [place] Hemoglobin (Bld) [Mass/Vol] 15.9 g/dL 13 - 17 g/dL [place] Immature granulocytes (Bld) [#/Vol] 10*3/uL [place] Immature granulocytes (Bld) [#/Vol] 0 % 0 [place] Interpretation and review of laboratory results Abnormal [place] Lymphocytes (Bld) [#/Vol] 1.28 10*3/uL [place] Lymphocytes/100 WBC (Bld) 19 % Low 24 - 43 % [place] MCH (RBC) [Entitic mass] 30.7 pg 25. 2 - 33.5 pg [place] MCHC (RBC) [Mass/Vol] 32.6 g/dL 28.4 - 34.8 g/dL [place] MCV (RBC) [Entitic vol] 94.0 fL 82.6 - 102.9 fL [place] Monocytes (Bld) [#/Vol] 0.98 10*3/uL [place] Monocytes/100 WBC (Bld) 15 % High 3 - 12 % [place] Platelet mean volume (Bld) [Entitic vol] 10.3 fL 8.1 - 13.5 fL [place] Platelets (Bld) [#/Vol] NOT REPORTED [place] Platelets (Bld) [#/Vol] 209 10*3/uL [place] RBC (Bld) [#/Vol] 5.18 10*6/uL 4.21 - 5.7 7 m/uL [place] RBC morphology finding Nom (Bld) NOT REPORTED [place] Segmented neutrophils/100 WBC (Bld) 61 % 36 - 65 % [place] Segs Absolute 4.13 [place] WBC (Bld) [#/Vol] 0.0 10*3/uL 0.0 per 10 0 WBC [place] WBC (Bld) [#/Vol] 6.7 10*3/uL [place] WBC Morphology NOT REPORTED [place] Comprehensive Metabolic Pane monique 04-17-2020 Albumin [Mass/Vol] 4.2 g/dL 3.5 - 5.2 g/dL [place] Albumin/Globulin [Mass ratio] 1.1 {ratio} [place] ALP [Catalytic activity/Vol] 161 U/L High 40 - 129 U/L [place] ALT [Catalytic activity/Vol] 24 U/L 5 - 41 U/L [place] Anion gap [Moles/Vol] 13 mmol/L 9 - 17 mmol/L [place] AST [Catalytic activity/Vol] 19 U/L <40 [place] Bilirubin Ql (U) 0.27 mg/dL Low 0.3 - 1.2 mg/dL [place] Bun/Cre Ratio 12 [place] Calcium [Mass/Vol] 9.4 mg/dL 8.6 - 10. 4 mg/dL [place] Chloride [Moles/Vol] 103 mmol/L 98 - 10 7 mmol/L [place] CO2 [Moles/Vol] 24 mmol/L 20 - 31 mmol/L [place] Creatinine [Mass/Vol] 0.81 mg/dL 0.7 - 1.2 mg/dL [place] GFR >60 >60 mL/min [place] GFR Non- >60 >60 mL/min [place] Glucose [Mass/Vol] 104 mg/dL High 70 - 99 mg/dL [place] Interpretation and review of laboratory results Abnormal [place] Potassium [Moles/Vol] 4.2 mmol/L 3.7 - 5.3 mmol/L [place] Protein [Mass/Vol] 8.0 g/dL 6.4 - 8.3 g/dL [place] Sodium [Moles/Vol] 140 mmol/L 135 - 144 mmol/L [place] Urea nitrogen [Mass/Vol] 10 mg/dL 8 - 23 mg/d L [place] Lactate Dehydrogenaseon 04-03 LD 181 U/L 135 - 225 U/L [place] Metabolic Panelon 04-17-2020 GFR/1.73 sq M predicted among non-blacks MDRD (S/P/Bld) [Vol rate/Area] [place] Comment on above: Stage 1: Some kidney damage normal GFR Stage 2: Mild kidney damage GFR 60-89 Stage 3: Moderate kidney damage GFR 30-59 Stage 4: Severe kidney damage GFR 15-29 Stage 5: Severe kidney damage GFR <15 ESRD - chronic treatment by dialysis or transplant Average GFR for 60-6 9 years old: 85 mL/min/1.73sq m Chronic Kidney Disease: <60 mL/min/1.73sq m Kidney failure: <15 mL/min/1.73sq m eGFR calculated using average adult body mass. Additional eGFR calculator available at: http://www.[employer]multiple_crcl_2012.htm Vital Signs Date Time Vital Sign Value Performing Clinician Facility 09-03-2023 09:15-0400 Body temperature 97.9 [degF] Chair [place] Work Phone: [facility] 09-03-2023 09:15-0400 Diastolic blood pressure 71 mm[Hg] Chair [place] Work Phone: [facility] 09-03-2023 09:15-0400 Heart rate 77 /min Chair [place] Work Phone: [facility] 09-03-2023 09:15-0400 Respiratory rate 16 /min Chair [place] Work Phone: [facility] 09-03-2023 09:15-0400 SaO2% (BldA) [Mass fraction] 97 % Chair [place] Work Phone: [facility] 09-03-2023 09:15-0400 Systolic blood pressure 106 mm[Hg] Chair [place] Work Phone: [facility] 09-02-2023 09:01-0400 Body height 179.5 cm Michael Boykin MD Work Phone: [facility] 09-02-2023 09:01-0400 Body temperature 97.39 [degF] iMchael Boykin MD Work Phone: [facility] 09-02-2023 09:01-0400 Body weight 80.38 kg Michael Boykin MD Work Phone: [facility] 09-02-2023 09:01-0400 Diastolic blood pressure 75 mm[Hg] Michael Boykin MD Work Phone: [facility] 09-02-2023 09:01-0400 Heart rate 80 /min Michael Boykin MD Work Phone: [facility] 09-02-2023 09:01-0400 Respiratory rate 16 /min Michael Boykin MD Work Phone: [facility] 09-02-2023 09:01-0400 SaO2% (BldA) [Mass fraction] 97 % Michael Boykin MD Work Phone: [facility] 09-02-2023 09:01-0400 Systolic blood pressure 130 mm[Hg] Michael Boykin MD Work Phone: [facility] 07-09-2023 09:11-0400 Body temperature 98.01 [degF] Chair [place] Work Phone: [facility] 07-09-2023 09:11-0400 Diastolic blood pressure 68 mm[Hg] Chair [place] Work Phone: [facility] 07-09-2023 09:11-0400 Heart rate 74 /min Chair [place] Work Phone: [facility] 07-09-2023 09:11-0400 Respiratory rate 16 /min Chair [place] Work Phone: [facility] 07-09-2023 09:11-0400 SaO2% (BldA) [Mass fraction] 98 % Chair [place] Work Phone: [facility] 07-09-2023 09:11-0400 Systolic blood pressure 112 mm[Hg] Chair [place] Work Phone: [facility] 07-08-2023 11:42-0400 Body temperature 98.01 [degF] Chair [place] Work Phone: [facility] 07-08-2023 11:42-0400 Diastolic blood pressure 64 mm[Hg] Chair [place] Work Phone: [facility] 07-08-2023 11:42-0400 Heart rate 54 /min Chair [place] Work Phone: [facility] 07-08-2023 11:42-0400 Respiratory rate 16 /min Chair [place] Work Phone: [facility] 07-08-2023 11:42-0400 SaO2% (BldA) [Mass fraction] 97 % Chair [place] Work Phone: [facility] 07-08-2023 11:42-0400 Systolic blood pressure 98 mm[Hg] Chair [place] Work Phone: [facility] 07-08-2023 08:41-0400 Body height 179.5 cm Michael Boykin MD Work Phone: [facility] 07-08-2023 08:41-0400 Body temperature 97.59 [degF] Michael Boykin MD Work Phone: [facility] 07-08-2023 08:41-0400 Body weight 76.57 kg Michael Boykin MD Work Phone: [facility] 07-08-2023 08:41-0400 Diastolic blood pressure 70 mm[Hg] Mihcael Boykin MD Work Phone: [facility] 07-08-2023 08:41-0400 Heart rate 85 /min Michael Boykin MD Work Phone: [facility] 07-08-2023 08:41-0400 Respiratory rate 18 /min Michael Boykin MD Work Phone: [facility] 07-08-2023 08:41-0400 SaO2% (BldA) [Mass fraction] 97 % Michael Boykin MD Work Phone: [facility] 07-08-2023 08:41-0400 Systolic blood pressure 116 mm[Hg] Michael Boykin MD Work Phone: [facility] 06-11-2023 08:57-0400 Body temperature 98.29 [degF] Chair [place] Work Phone: [facility] 06-11-2023 08:57-0400 Diastolic blood pressure 72 mm[Hg] Chair [place] Work Phone: [facility] 08-09-2023 08:57-0400 Heart rate 70 /min Chair [place] Work Phone: [facility] 06-11-2023 08:57-0400 Respiratory rate 18 /min Chair [place] Work Phone: [facility] 06-11-2023 08:57-0400 SaO2% (BldA) [Mass fraction] 98 % Chair [place] Work Phone: [facility] 06-11-2023 08:57-0400 Systolic blood pressure 117 mm[Hg] Chair [place] Work Phone: [facility] 06-10-2023 14:09-0400 Body temperature 98.2 [degF] Chair [place] Work Phone: [facility] 06-10-2023 14:09-0400 Diastolic blood pressure 63 mm[Hg] Chair [place] Work Phone: [facility] 06-10-2023 14:09-0400 Heart rate 70 /min Chair [place] Work Phone: [facility] 06-10-2023 14:09-0400 Respiratory rate 16 /min Chair [place] Work Phone: [facility] 06-10-2023 14:09-0400 SaO2% (BldA) [Mass fraction] 96 % Chair [place] Work Phone: [facility] 06-10-2023 14:09-0400 Systolic blood pressure 102 mm[Hg] Chair [place] Work Phone: [facility] 06-10-2023 09:00-0400 Body height 179.5 cm Chair [place] Work Phone: [facility] 06-10-2023 09:00-0400 Body weight 79.83 kg Chair [place] Work Phone: [facility] 06-05-2023 15:27-0400 Body height 177.8 cm Michael Boykin MD Work Phone: [facility] 08-03-2023 15:27-0400 Body temperature 97.39 [degF] Michael Boykin MD Work Phone: [facility] 06-05-2023 15:27-0400 Body weight 80.56 kg Michael Boykin MD Work Phone: [facility] 06-05-2023 15:27-0400 Diastolic blood pressure 72 mm[Hg] Michael Boykin MD Work Phone: [facility] 06-05-2023 15:27-0400 Heart rate 83 /min Michael Boykin MD Work Phone: [facility] 06-05-2023 15:27-0400 Respiratory rate 16 /min Michael Boykin MD Work Phone: [facility] 06-05-2023 15:27-0400 SaO2% (BldA) [Mass fraction] 96 % Michael Boykin MD Work Phone: [facility] 06-05-2023 15:27-0400 Systolic blood pressure 129 mm[Hg] Michael Boykin MD Work Phone: [facility] 05-27-2023 14:51-0400 Body height 177.8 cm Niesha Galdamez MD Work Phone: [facility] 05-27-2023 14:51-0400 Body temperature 98.01 [degF] Niesha Galdamez MD Work Phone: [facility] 05-27-2023 14:51-0400 Body weight 80.2 kg Niesha Galdamez MD Work Phone: [facility] 05-27-2023 14:51-0400 Diastolic blood pressure 85 mm[Hg] Niesha Galdamez MD Work Phone: [facility] 05-27-2023 14:51-0400 Heart rate 90 /min Niesha Galdamez MD Work Phone: [facility] 05-27-2023 14:51-0400 Respiratory rate 18 /min Niesha Galdamez MD Work Phone: [facility] 05-27-2023 14:51-0400 SaO2% (BldA) [Mass fraction] 97 % Niesha Galdamez MD Work Phone: [facility] 05-27-2023 14:51-0400 Systolic blood pressure 144 mm[Hg] Niesha Galdamez MD Work Phone: [facility] 05-22-2023 14:58-0400 Body height 177.8 cm Michael Boykin MD Work Phone: [facility] 05-22-2023 14:58-0400 Body temperature 98.29 [degF] Michael Boykin MD Work Phone: [facility] 05-22-2023 14:58-0400 Body weight 78.74 kg Michael Boykin MD Work Phone: [facility] 05-22-2023 14:58-0400 Diastolic blood pressure 73 mm[Hg] Michael Boykin MD Work Phone: [facility] 05-22-2023 14:58-0400 Heart rate 84 /min Michael Boykin MD Work Phone: [facility] 05-22-2023 14:58-0400 Respiratory rate 16 /min Michael Boykin MD Work Phone: [facility] 05-22-2023 14:58-0400 SaO2% (BldA) [Mass fraction] 97 % Michael Boykin MD Work Phone: [facility] 05-22-2023 14:58-0400 Systolic blood pressure 120 mm[Hg] Michael Boykin MD Work Phone: [facility] 05-13-2023 10:57-0400 Body height 177.8 cm Michael Boykin MD Work Phone: [facility] 05-13-2023 10:57-0400 Body temperature 98.2 [degF] Michael Boykin MD Work Phone: [facility] 05-13-2023 10:57-0400 Body weight 79.47 kg Michael Boykin MD Work Phone: [facility] 05-13-2023 10:57-0400 Diastolic blood pressure 70 mm[Hg] Michael Boykin MD Work Phone: [facility] 05-13-2023 10:57-0400 Heart rate 75 /min Michael Boykin MD Work Phone: [facility] 05-13-2023 10:57-0400 Respiratory rate 16 /min Michael Boykin MD Work Phone: [facility] 05-13-2023 10:57-0400 SaO2% (BldA) [Mass fraction] 97 % Michael Boykin MD Work Phone: [facility] 05-13-2023 10:57-0400 Systolic blood pressure 134 mm[Hg] Michael Boykin MD Work Phone: [facility] 04-29-2023 13:13-0400 Blood Pressure Location [facility] [place] 04-29-2023 13:13-0400 Diastolic blood pressure 76 mm[Hg] [facility] [place] 04-29-2023 13:13-0400 Heart rate 72 /min [facility] [place] 04-29-2023 13:13-0400 Respiratory rate 16 /min [facility] [place] 04-29-2023 13:13-0400 Systolic blood pressure 122 mm[Hg] [facility] [place] Encounters Encounter Date Encounter Type Care Provider Facility Start: 12-09-2023 End: 12-10-2023 ambulatory Michael Boykin Facility:[facility] Start: 11-20-2023 End: 11-20-2023 ambulatory MICHAEL BOYKIN Facility:[facility] Start: 11-18-2023 End: 11-18-2023 ambulatory CLEO FELIZ Facility:[facility] Start: 10-29-2023 End: 10-29-2023 ambulatory MICHAEL BOYKIN Facility:[facility] Start: 10-28-2023 End: 10-28-2023 ambulatory MICHAEL BOYKIN Facility:[facility] Start: 10-23-2023 Telephone encounter Michael parker MD Work Phone: Hematology/Oncology Comment on above: Lab Orders Start: 10-01-2023 End: 10-01-2023 ambulatory Chair 10 [place] Work Phone: Hematology/Oncology Comment on above: 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) Start: 09-30-2023 End: 10-01-2023 ambulatory MICHAEL BOYKIN Facility:[facility] Start: 09-30-2023 End: 09-30-2023 ambulatory [facility] Work Phone: Hematology/Oncology Comment on above: 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) Start: 09-23-2023 End: 09-23-2023 ambulatory MICHAEL BOYKIN Facility:[facility] Start: 09-03-2023 End: 09-03-2023 ambulatory Chair 10 [place] Work Phone: Hematology/Oncology Comment on above: 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) Start: 09-02-2023 End: 09-02-2023 ambulatory MICHAEL BOYKIN Facility:[facility] Start: 09-02-2023 End: 09-02-2023 ambulatory Michael Boykin MD Work Phone: Hematology/Oncology Comment on above: 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) Start: 09-02-2023 End: 09-02-2023 Patient encounter procedure Michael Boykin MD Work Phone: [email or web address] Start: 08-06-2023 End: 08-06-2023 ambulatory MICHAEL BOYKIN Facility:[facility] Start: 08-05-2023 End: 08-06-2023 ambulatory MICHAEL BOYKIN Facility:[facility] Start: 08-05-2023 End: 08-05-2023 ambulatory [facility] Work Phone: Hematology/Oncology Comment on above: 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) Start: 08-04-2023 Telephone encounter Cleo Childers junior [facility] Work Phone: Hematology/Oncology Comment on above: Lab Orders Start: 07-22-2023 End: 07-22-2023 ambulatory [facility] Work Phone: Hematology/Oncology Comment on above: 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) Start: 07-09-2023 End: 07-09-2023 ambulatory MICHAEL BOYKIN Facility:[facility] Start: 07-09-2023 End: 07-09-2023 ambulatory Chair 11 [place] Work Phone: Hematology/Oncology Comment on above: 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) Start: 07-08-2023 End: 07-08-2023 ambulatory MICHAEL BOYKIN Facility:[facility] Start: 07-08-2023 End: 07-08-2023 Patient encounter procedure Michael Boykin MD Work Phone: [facility] Start: 07-08-2023 End: 07-08-2023 ambulatory [facility] Work Phone: Hematology/Oncology Comment on above: 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); History of diffuse large B-cell lymphoma; Acquired hypothyroidism Start: 07-02-2023 Telephone encounter Ivania frias RN Work Phone: Hematology/Oncology Comment on above: Care Coordination (R renée Update) Start: 06-27-2023 Telephone encounter Fifi Sommers RN Work Phone: Hematology/Oncology Comment on above: Care Coordination (R renée ) Start: 06-25-2023 Telephone encounter Ivania frias RN Work Phone: Hematology/Oncology Comment on above: Care Coordination (R renée) Start: 06-19-2023 Chart abstracting Mindi sears RN Work Phone: Hematology/Oncology Comment on above: Research (IRB [id number] Informed Consent) Start: 06-19-2023 End: 06-19-2023 ambulatory MICHAEL BOYKIN Facility:[facility] Start: 06-19-2023 End: 06-19-2023 ambulatory [facility] Work Phone: Hematology/Oncology Comment on above: 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) Start: 06-17-2023 End: 06-18-2023 ambulatory Elmer R NILL Facility: [place] Start: 06-17-2023 End: 06-17-2023 Patient encounter procedure Elmer R NILL [facility] [place] Start: 06-12-2023 Telephone encounter Fifi Sommers RN Work Phone: Hematology/Oncology Comment on above: Care Coordination (C 1D1 treatment follow up call) Start: 06-11-2023 End: 06-11-2023 ambulatory Chair 5 [place] Work Phone: Hematology/Oncology Comment on above: 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) Start: 06-10-2023 End: 06-10-2023 ambulatory Chair 5 [place] Work Phone: Hematology/Oncology Comment on above: 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) Start: 06-06-2023 Telephone encounter Ivania frias RN Work Phone: Hematology/Oncology Comment on above: Tree Killer - O ther (Uric Acid Results) [facility] K[facility] - [facility] (Medication Problem) Start: 06-06-2023 End: 06-06-2023 ambulatory MICHAEL BOYKIN Facility:[facility] Start: 06-05-2023 End: 06-05-2023 ambulatory MICHAEL BOYKIN Facility:[facility] Start: 06-05-2023 End: 06-05-2023 Patient encounter procedure Michael Boykin MD Work Phone: [facility] Start: 06-05-2023 End: 06-05-2023 ambulatory [facility] Work Phone: Hematology/Oncology Comment on above: 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); History of diffuse large B-cell lymphoma; Acquired hypothyroidism Start: 06-05-2023 Telephone encounter Ivania frias RN Work Phone: Hematology/Oncology Comment on above: Care Coordination (A ntiemetics) Start: 06-02-2023 Telephone encounter Corinne Joe Hematology/Oncology Comment on above: Orders Start: 06-01-2023 Telephone encounter Niesha diaz MD Work Phone: Hematology/Oncology Comment on above: Tree Killer - O ther Start: 05-28-2023 End: 05-29-2023 ambulatory Elmer JUNG Facility::[id number] Start: 05-27-2023 End: 05-28-2023 ambulatory Niesha Galdamez MD Work Phone: Hematology/Oncology Comment on above: History of diffuse l arge B-cell lymphoma (Primary Dx); 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); 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 Comment on above: Appointment Start: 05-22-2023 End: 05-22-2023 ambulatory MICHAEL BOYKIN Facility:[facility] Start: 05-22-2023 End: 05-22-2023 ambulatory Michael Boykin MD Work Phone: Hematology/Oncology Comment on above: 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) (Primary Dx) Start: 05-22-2023 End: 05-22-2023 Patient encounter procedure Michael Boykin MD Work Phone: [facility] Start: 05-21-2023 Telephone encounter Ivania frias RN Work Phone: Hematology/Oncology Comment on above: Care Coordination (P athology Update) Start: 05-19-2023 Telephone encounter Ivania frias RN Work Phone: Hematology/Oncology Comment on above: Care Coordination (P athology Results) Start: 05-16-2023 Telephone encounter Michael parker MD Work Phone: [facility] Comment on above: 2nd opinion path Start: 05-14-2023 End: 05-15-2023 ambulatory Elmer R NILL Facility: [facility] Start: 05-14-2023 End: 05-14-2023 Patient encounter procedure Elmer R NILL [facility] [place] Start: 05-13-2023 End: 05-13-2023 ambulatory Michael Boykin MD Work Phone: Hematology/Oncology Comment on above: Non-Hodgkin lymphoma of lymph nodes of multiple regions, unspecified non-Hodgkin lymphoma type (HCC) (Primary Dx); Acquired hypothyroidism Start: 05-13-2023 End: 05-13-2023 Patient encounter procedure Michael Boykin MD Work Phone: JORDAN Start: 05-07-2023 End: 05-08-2023 ambulatory Elmer R NILL Facility:CD:[id number] Start: 04-29-2023 End: 04-30-2023 ambulatory EMELIA GONZALEZ Facility: [place] Start: 04-29-2023 End: 04-29-2023 Patient encounter procedure Elmer R NILL General Surgery Nill/Said [place] Start: 04-17-2023 ambulatory Elmer NILL Facility:[facility] Start: 04-02-2023 End: 04-03-2023 ambulatory EMELIA GONZALEZ [facility] Start: 04-02-2023 End: 04-02-2023 Subsequent hospital visit by physician [facility] Comment on above: Non-Hodgkin's lympho ma, unspecified body region, unspecified non-Hodgkin lymphoma type (HCC); Hypothyroidism, unspecified type Start: 04-05-2021 End: 04-05-2021 Subsequent hospital visit by physician [facility] Comment on above: Non-Hodgkin's lympho ma, unspecified body region, unspecified non-Hodgkin lymphoma type (HCC); Hypothyroidism, unspecified type Start: 04-17-2020 End: 04-17-2020 Subsequent hospital visit by physician [facility] Lab Drawing Room [facility] Laboratory Comment on above: Non-Hodgkin's lympho ma, unspecified body region, unspecified non-Hodgkin lymphoma type (HCC); Hypothyroidism, unspecified type; Encounter for screening for lung cancer Procedures Date Procedure Procedure Detail Performing Clinician Start: 09-30-2023 Blood count complete auto&auto difrntl wbc Michael Boykin MD Work Phone: Start: 08-05-2023 Blood count complete auto&auto difrntl wbc Michael Boykin MD Work Phone: Start: 07-22-2023 Basic metabolic pane l calcium total Michael Boykin MD Work Phone: Start: 07-08-2023 Blood count complete auto&auto difrntl wbc Michael Boykin MD Work Phone: Start: 06-19-2023 Basic metabolic pane l calcium total Michael Boykin MD Work Phone: Start: 06-05-2023 Blood count complete auto&auto difrntl wbc Michael Boykin MD Work Phone: Start: 05-28-2023 Insertion of implant able venous access port Elmer JUNG Start: 05-07-2023 Biopsy of inguinal l ymph node Elmer JUNG Start: 04-02-2023 End: 04-02-2023 Comprehensive metabolic panel Emelia Gonzalez MD Work Phone: Start: 04-05-2021 Comprehensive metabo lic panel Maritza Mendoza MD Work Phone: Start: 04-17-2020 Blood count complete auto&auto difrntl wbc Maritza Mendoza Work Phone: Start: 04-17-2020 Comprehensive metabo lic panel Maritza Mendoza Work Phone: Start: 04-17-2020 Lactate dehydrogenase ldh Maritza Mendoza Work Phone: Start: 01-28-2002 Thoracentesis Elmer Joe ILL Start: 01-20-2002 Bronchoscopy Elmer NI LL Biopsy of lymph node Elmer MIGUEL Plan of Treatment Date Care Activity Detail Author Start: 09-30-2026 [facility] Start: 09-02-2026 [facility] Start: 08-05-2026 [facility] Start: 07-22-2026 [facility] Start: 07-08-2026 DIABETES SCREEN DIABETES SCREEN [facility] Start: 06-19-2026 DIABETES SCREEN DIABETES SCREEN [facility] Start: 06-05-2026 DIABETES SCREEN DIABETES SCREEN [facility] Start: 05-13-2026 DIABETES SCREEN DIABETES SCREEN [facility] Start: 10-28-2023 End: 01-27-2024 CBC W Auto Differential panel - Blood CBC + DIFF Lab Routine 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) Expected: 10/28/2023, Expires: 01/27/2024 [facility] Work Phone: Comment on above: Expected: 10/28/2023 , Expires: 01/27/2024 Start: 10-28-2023 End: 01-27-2024 Comprehensive metabolic 2000 panel - Serum or Plasma COMP METABOLIC PANEL Lab Routine 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) Expected: 10/28/2023, Expires: 01/27/2024 [facility] Work Phone: Comment on above: Expected: 10/28/2023 , Expires: 01/27/2024 Start: 08-05-2023 End: 10-05-2023 CBC W Auto Differential panel - Blood CBC + DIFF Lab Routine 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) Expected: 08/05/2023, Expires: 10/05/2023 [facility] Work Phone: Comment on above: Expected: 08/05/2023 , Expires: 10/05/2023 Start: 08-05-2023 End: 10-05-2023 Comprehensive metabolic 2000 panel - Serum or Plasma COMP METABOLIC PANEL Lab Routine 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) Expected: 08/05/2023, Expires: 10/05/2023 [facility] Work Phone: Comment on above: Expected: 08/05/2023 , Expires: 10/05/2023 Start: 07-22-2023 End: 09-21-2023 Basic metabolic 2000 panel - Serum or Plasma BASIC METABOLIC PNL Lab Routine 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) Expected: 07/22/2023 (Approximate), Expires: 09/21/2023 [facility] Work Phone: Comment on above: Expected: 07/22/2023 (Approximate), Expires: 09/21/2023 Start: 07-22-2023 End: 09-21-2023 CBC W Auto Differential panel - Blood CBC + DIFF Lab Routine 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) Expected: 07/22/2023 (Approximate), Expires: 09/21/2023 [facility] Work Phone: Comment on above: Expected: 07/22/2023 (Approximate), Expires: 09/21/2023 Start: 07-22-2023 End: 09-21-2023 Urate [Mass/volume] in Serum or Plasma URIC ACID BLOOD Lab Routine 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) Expected: 07/22/2023 (Approximate), Expires: 09/21/2023 [facility] Work Phone: Comment on above: Expected: 07/22/2023 (Approximate), Expires: 09/21/2023 Start: 07-04-2023 Influenza vaccination [facility] Start: 06-03-2023 Influenza vaccination Flu vacc ine (Season Ended) [facility] Start: 05-13-2023 End: 07-13-2023 [id number]-7-[id number] [Mass/volume] in Serum or Plasma [facility] Work Phone: Comment on above: Expected: 05/13/2023 , Expires: 07/13/2023 Start: 05-13-2023 End: 07-13-2023 Chronic hepatitis differentiation between hepatitis B and C virus panel - Serum or Plasma [facility] Work Phone: Comment on above: Expected: 05/13/2023 , Expires: 07/13/2023 Start: 04-16-2023 End: 04-16-2023 Patient encounter procedure 04/16/2023 Office Visit Oncology Emelia Gonzalez MD [address] [id number] [facility] Start: 04-02-2023 Annual Wellness Visi t (AWV) Annual Wellness Visit (AWV) [facility] Start: 11-03-2022 ADVANCE DIRECTIVE DISCUSSION ADVANCE DIRECTIVE DISCUSSION [facility] Start: 11-03-2022 DEPRESSION ASSESSMENT DEPRESSION ASS ESSMENT [facility] Start: 04-05-2022 Thyroid stimulating hormone measurement TSH testing [facility] Phone: Start: 2021 Abdominal aortic ane urysm screening AAA screen [facility] Start: 2021 PNEUMOCOCCAL: 65+ (1 - PCV) PNEUMOCOCCAL: 65+ (1 - PCV) [facility] Start: 07-04-2021 Influenza vaccination Flu vacc ine (Season Ended) [facility] Phone: Start: 04-18-2021 End: 04-18-2021 Patient encounter procedure 04/18/2021 Office Visit Oncology Maritza Mendoza MD [address] [place] [address] [facility] Start: 07-04-2020 Influenza vaccination Flu vacc ine (Season Ended) [place], [place] Start: 04-19-2020 End: 04-19-2020 Office Visit 04/19/2020 Office Visit Oncology Maritza Mendoza MD [address] [place] [address] [facility] Start: 02-17-2020 TSH Qn TSH testing [place], [place] Start: 2016 RSV Vaccine (1 - 1-d ose 60+ series) RSV Vaccine (1 - 1-dose 60+ series) [facility] Start: 2011 PROSTATE CANCER SCRE ENING DISCUSSION PROSTATE CANCER SCREENING DISCUSSION [facility] Start: 2011 Prostate specific an tigen measurement Prostate Cancer Screening Discussion [facility] Start: 2006 Screening for malign ant neoplasm of colon Colon cancer screen colonoscopy [place], [place] Start: 2006 Shingles Vaccine (1 of 2) Lombardo gles Vaccine (1 of 2) [place] Start: 2006 SHINGRIX VACCINE (1 of 2) LOMBARDO GRIX VACCINE (1 of 2) [facility] Start: 2001 COLOGUARD (FIT-DNA) COLOGUARD (FIT-D NA) [facility] Start: 2001 Colonoscopy COLONOSCOPY [facility] Start: 2001 COLORECTAL CANCER SCREENING COLORECTAL CANCER SCREENING [facility] Start: [address] COLONOGRAPHY [facility] Start: 2001 FECAL OCCULT BLOOD FECAL OCCULT BLOO D [facility] Start: 2001 Screening for malign ant neoplasm of colon [facility] Start: 2001 [facility] Start: 1996 Lipid panel [facility] Start: 1991 Lipid 1996 panel - S bucky or Plasma Lipid Screening [facility] Start: 1991 Lipid panel Lipid Screening [facility] Start: 1991 LIPID SCREEN LIPID SCREEN [facility] Start: 1975 DTaP/Tdap/Td vaccine (1 - Tdap) DTaP/Tdap/Td vaccine (1 - Tdap) [facility] Start: 1975 Shingles vaccine (1 of 2) Lombardo gles vaccine (1 of 2) [facility] Start: 1975 SHINGRIX VACCINE (1 of 2) LOMBARDO GRIX VACCINE (1 of 2) [facility] Start: 1975 Urine microalbumin profile [facility] Start: 1974 Hepatitis C screening Hepatitis C [facility] Start: 1974 HEPATITIS C SCREENING HEPATITIS C SC REENING [facility] Start: 1971 HIV screening HIV screen [place], [place] Start: 1968 COVID-19 Vaccine (1) COVID-19 Vaccin e (1) [facility] Phone: Start: 1968 Depression Screen Depression Screen [facility] Start: 1962 Pneumococcal 0-64 ye ars Vaccine (1 of 3 - PCV13) Pneumococcal 0-64 years Vaccine (1 of 3 - PCV13) [place] Start: 1962 Pneumococcal 0-64 ye ars Vaccine (1 of 4 - PCV13) Pneumococcal 0-64 years Vaccine (1 of 4 - PCV13) [facility] Phone: Start: 1962 Pneumococcal 65+ yea rs Vaccine (1 - PCV) Pneumococcal 65+ years Vaccine (1 - PCV) [facility] Start: 1962 Pneumococcal Vaccine : 65+ (1 - PCV) Pneumococcal Vaccine: 65+ (1 - PCV) [facility] Start: 1962 Pneumococcal Vaccine : 65+ (1 of 2 - PCV) Pneumococcal Vaccine: 65+ (1 of 2 - PCV) [facility] Start: 1962 PNEUMOCOCCAL: 65+ (1 - PCV) PNEUMOCOCCAL: 65+ (1 - PCV) [facility] Start: 1961 COVID-19 VACCINE (#1) COVID-19 VACCI NE (#1) [facility] Start: 03-18-1957 COVID-19 Vaccine (#1) COVID-19 Vacci ne (#1) [facility] Start: 1956 ABDOMINAL AORTIC ANE URYSM SCREENING ABDOMINAL AORTIC ANEURYSM SCREENING [facility] Start: 1956 Abdominal aortic ane urysm screening Abdominal Aortic Aneurysm Screening [facility] Start: 1956 Hepatitis C screening Hepatitis C [place], [place] End: 05-19-2024 Echocardiography ECHO Cardiology Routine Non-Hodgkin lymphoma of lymph nodes of multiple regions, unspecified non-Hodgkin lymphoma type (HCC) DE DIOS (dyspnea on exertion) 1 Occurrences starting 05/19/2023 until 05/19/2024 [facility] Work Phone: Comment on above: 1 Occurrences starti ng 05/19/2023 until 05/19/2024 End: 10-01-2024 NM PET/CT SKULL-THIGH SUBSEQUENT NM PET/CT SKULL-THIGH SUBSEQUENT Radiology Routine 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 2021 Private Health Insurance CLI [id number] 2021 Private Health Insurance [employer] A ETNA MEDICARE SUPPLEMENT [id number] 2021-Present [phone] [address] [address] [place] [address] Indemnity [id number] 2017 Private Health Insurance [facility] xxxxxxxxx 2017-Present [phone] [address] [place] [address] xxxxxxxxx [id number] 2017 Private Health Insurance [facility] - CHOICE PLU [id number] 2017-Present [phone] [address] [place] [address] [id number] 2017 Private Health Insurance [facility] PLU [id number] 2017-Present [phone] [address] [place] [address] [id number] 1956 Unknown [id number] 1956 Unknown [id number] 1956 Unknown [id number] 1956 Unknown [id number] 1956 Unknown [id number] 1956 Unknown [id number] 1956 Unknown [id number] Social History Date Type Detail Facility Start: 02-24-2019 End: 05-13-2023 Tobacco smoking status [facility] Former smoker [facility] End: 02-16-2002 History of tobacco use Current smoker [facility] End: 02-16-2002 [facility] Start: 02-24-2019 End: 04-17-2022 Alcohol intake [facility]ked [facility] Start: 1955 Sex Assigned At Not on file [place] Exposure to SARS-CoV -2 (event) Unable to assess [facility] Start: 02-24-2019 End: 05-13-2023 Tobacco use and exposure Never used [facility] Tobacco smoking status Never [facility] Start: 05-13-2023 End: 05-20-2023 [facility]igned At [facility] History of tobacco use Passive smoker [facility] Start: 05-13-2023 End: 09-30-2023 Alcohol intake Ex-drinker (finding) [facility] Start: 05-13-2023 End: 05-20-2023 History of Social function [facility] Medical Equipment Procedure Code Equipment Code Equipment Origin al Text Equipment Identifier Dates Port-05/28/2023 [id number] Start: 05-28-2023 Comment on above: Description: Placed @ [facility] Functional Status Date Assessment Result Facility 04-29-2023 Functional Status N/A [facility] Clinical Notes 02-02-2023 to 12-09-2023 Note Date & Type Note Facility 12-09-2023 Note Chief Complaint consultation for right inguinal mass HPI Staff 68 year old male presents on consultation from Dr. Boykin for right inguinal mass. Patient diagnosed with recurrent lymphoma 05/2023. Completed chemotherapy 10/2023. Patient reports mass at previous biopsy site. PET scan with uptake at surgical site. US completed 11/2023 with hypervascular mass. History of Present Illness 68 yo male with h/o recurrent lymphoma in May, s/p right inguinal lymph node biopsy for diagnosis; responded to chemotherapy, patient reports enlarging lump under previous incision since September, no pain or drainage; increased activity on PET scan; US with 4.8 cm hypervascular lesion, possible fluid component; patient otherwise feels well, no night sweats, eating well, no wt loss. Review of Systems PHQ Score Initial Depression Screen Score: 0 SCORE ROS - Provider Constitutional: no fever, no sweats, no weight loss. Eyes: no glasses, no blurred vision, no visual loss. ENMT: no dentures, no hoarseness, no swallowing difficulties, no hearing loss, no ear infection(s), no nose bleeds. Cardiovascular: normal blood pressure, no chest pain, regular heartbeat, no heart murmur. Respiratory: no shortness of breath, no cough, no asthma, no wheezing. Gastrointestinal: no nausea, no vomiting, no diarrhea, no constipation, no blood in stool, no change in bowel habits, no abdominal pain, no hepatitis. Genitourinary: no kidney stones, no urine infection, no dysuria. Musculoskeletal: no pain, no weakness. Skin: no changing moles, no rash, no skin lumps. Neurologic: no seizures, no epilepsy, no headache. Psychiatric: no emotional or psychiatric problem. Heme/Lymph: no bleeding problems, no anemia, no blood clots, no transfusions. Allergy/Immunologic: no swollen lymph nodes/glands, no IV drug abuse. Other: Additional ROS info: Except as noted in the above Review of Systems and in the History of Present Illness, all other systems have been reviewed and are negative or noncontributory. Physical Exam Vitals & Measurements HR: 70(Peripheral) RR: 16 BP: 116/78 HT: 70 in HT: 177.8 cm WT: 84.6 kg WT: 186.12 lb BMI: 26.76 HEENT: normal conjunctiva, sclera clear, no scleral icterus, EOM intact, PERRLA, oral mucosa moist without lesions. Neck: trachea midline, no mass, symmetric, no thyromegaly or nodules, no adenopathy Respiratory: lungs CTA, respirations non labored. Cardiovascular: regular rate and rhythm, no murmur, no pedal edema or varicosities. Gastrointestinal: soft, non distended, no tenderness, no masses, no palpable hernias, diastasis recti no, no hepatosplenomegaly; normal bs Lymphatic: no cervical adenopathy, no axillary adenopathy, right infrainguinal area with 5 cm area of swelling, slight fluctuance, nontender, no skin changes, below previous scar. Musculoskeletal: normal gait, digits and nails without infection, nodes, cyanosis, clubbing. Skin: no rashes, no lesions, no ulcers, no subcutaneous nodules, induration. Psychiatric/Neuro: oriented to time, place, person, judgement normal, affect appropriate for age, insight intact, no focal deficits. Tests: x-rays reviewed, review of old records completed , Discussed surgical options, risks, and possible complications with patient. Assessment/Plan 1. Inguinal mass (R19.09: Other intra-abdominal and pelvic swelling, mass and lump) oncology has requested biopsy to rule out different lymphoma; possible lymphocele, but developed 4 months after surgery and is enlarging; will proceed with biopsy, possible excision/drainage; informed consent obtained. Ancef 2 gms IV prior to OR 2. Diffuse large B-cell lymphoma (C83.30: Diffuse large B-cell lymphoma, unspecified site) see # 1 Follow-up No qualifying data available Problem List/Past Medical History Ongoing BMI 26.0-26.9,adult Diffuse large B-cell lymphoma Encounter for care related to Port-a-Cath GERD (gastroesophageal reflux disease) Hypothyroidism Inguinal adenopathy Inguinal mass Overweight Historical No qualifying data Procedure/Surgical History Insertion of implantable venous access port (05/28/2023), Biopsy of inguinal lymph node (05/07/2023), Thoracentesis (01/28/2002), Bronchoscopy (01/20/2002), Biopsy of lymph node. Medications Fish Oil levothyroxine 125 mcg (0.125 mg) Tab, 125 mcg= 1 tab(s), Oral, Daily Multi Vitamins oral tablet, 1 tab(s), Oral, Daily Allergies allopurinol Social History Alcohol - Denies Alcohol Use, 04/29/2023 Substance Abuse - Denies Substance Abuse, 04/29/2023 Tobacco Former smoker, quit more than 30 days ago Tobacco Use:. Never Smokeless Tobacco Use:. Cigarettes, 1 per day. Started age 16.0 Years. Stopped age 46 Years., 12/09/2023 Family History Diabetes mellitus type 2: Mother. Heart disease: Mother. Hypertension: Mother. Primary malignant neoplasm of skin: Father. Immunizations Vaccine Date Status Comments influenza virus vaccine, inactivated - Not Given Patient (more content not included)... [facility] Comment on above: Result Comment: Elec tronically Signed By: MIGUEL LOFTON, Elmer Mas\Date and Time Signed: 12/09/23 18:51 EST 11-20-2023 Note HNO ID: [id number] Author: MARLEE HARPER RN Service: ? Author Type: Registered Nurse Type: Progress Notes Filed: 11/20/2023 13:34 Note Text: Labs drawn on Friday with PET scan, no labs ordered for today and patient will see Dr. 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 Would you like labs? 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 Jung, Dr. Emelia Gonzalez ([facility] [place]), Dr. Niesha Galdamez Portions of this encounter note have been copied from the note from 08/05 2023 and has been updated where appropriate, and reflect my current medical decision making from today. CC: This is a 67 year old male with recurrent lymphoma, seen for scheduled follow-up and continued treatment. INTERIM HISTORY: The patient remains on chemotherapy with Bendamustine plus Rituxan, and is tolerating it extremely well. He has had no apparent adverse effects. Shortly after starting treatment his adenopathy has resolved. Currently he feels well with no complaints. No unusual pain. No fevers, night sweats, or weight loss. MEDICATIONS: Current Outpatient Medications Medication Sig collagen, hydrolysate, bovine, (COLLAGEN, HYDR, BOVINE,, BULK,) 100 % powd Take 1 Dose by mouth once daily. ondansetron (ZOFRAN) 8 mg tablet Take 1 tablet by mouth every 8 hours as needed for nausea/vomiting. prochlorperazine (COMPAZINE) 10 mg tablet Take 1 tablet by mouth every 6 hours as needed. levothyroxine (SYNTHROID) 125 mcg tablet Take 1 tablet by mouth every afternoon. MULTIVITAMIN ORAL Take 1 Dose by mouth once daily. KRILL OIL ORAL Take 1 Dose by mouth once daily. Current Facility-Administered Medications Medication Dose Route Frequency perflutren lipid microspheres 1.3 mL in NaCl (PF) 0.9% 10 mL injection (DEFINITY) INTRAVENOUS DIRECTED PRN sodium chloride 0.9 % (flush) 10 mL (BD POSIFLUSH) 10 mL INTRAVENOUS DIRECTED PRN ALLERGIES: ALLERGIES Allergen Reactions Allopurinol Rash PAST MEDICAL HISTORY: PAST MEDICAL HISTORY Diagnosis Date Diffuse large B cell lymphoma (HCC) 05/2023 Follicular lymphoma (HCC) GERD (gastroesophageal reflux disease) History of chemotherapy 2002 Diffuse large B cell Lymphoma History of radiation therapy 2002 Diffuse large B cell lymphoma History of thoracentesis Hypothyroidism PAST SURGICAL HISTORY: PAST SURGICAL HISTORY Procedure Laterality Date PAST SURGICAL HISTORY OF Bronchoscopy PAST SURGICAL HISTORY OF Thoracentesis FAMILY HISTORY: FAMILY HISTORY Family history unknown: Yes SOCIAL HISTORY: Social History Tobacco Use Smoking status: Former Types: Cigarettes Passive exposure: Past Smokeless tobacco: Never Substance Use Topics Alcohol use: Not Currently Drug use: Never REVIEW OF SYSTEMS: General: No weight loss, malaise or fevers. HEENT: Negative for frequent or significant headaches. No changes in hearing or vision, no nose bleeds or other nasal problems. Respiratory: Negative for cough, wheezing or shortness of breath. Cardiovascular: Negative for chest pain, leg swelling or palpitations. GI: Negative for abdominal discomfort, blood in stools or black stools or change in bowel habits. : No history of dysuria, frequency or incontinence. Musculoskeletal: Negative for joint pain or swelling, back pain and muscle pain. Skin: Negative for lesions, rash and itching. Hematology/Lymphology: Negative for prolonged bleeding, bruising easily or swollen nodes. Neuro: No history of headaches, syncope, paralysis, seizures or tremors. PHYSICAL EXAM: BP 130/75 Pulse 80 Temp 36.3 C (97.4 F) (Temporal) Resp 16 Ht 179.5 cm (5' 10.67 ) Wt 80.4 kg (177 lb 3.2 oz) SpO2 97% BMI 24.95 kg/m ECOG 0 Exam limited to gross visualization where appropriate. Gen.: This is an age-appropriate patient in no acute distress. Head: Appears atraumatic with no visible lesions. Eyes: Pupils equally round and reactive to light, extraocular muscles are intact. Neck: Supple. Respiratory: Appears to be respiring comfortably. Neurologic: Nonfocal to gross visualization. Alert and oriented 3. Psychiatric: No evidence of inappropriate anxiety or depression. Skin: Visible areas of skin without rash, lesions, wounds or petechiae. PATHOLOGY: 05/07/2023 Right inguinal lymph node biopsy [facility]: Diffuse large B-cell lymphoma [facility] Pathology: Follicular lymphoma, grade 3A Comment: The histologic and immunophenotypic findings demonstrate 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 Definitive areas of diffuse large B-cell lymphoma arenot identified. LABS: Hemoglobin (g/dL) Date Value 09/02/2023 14.5 Hematocrit (%) Date Value 09/02/2023 41.9 WBC (k/uL) Date Value 09/02/2023 5.34 Platelet Count (k/uL) Date Value 09/02/2023 160 RADIOLOGY/OTHER STUDIES: 04/24/2023 PET scan (FeZo) Above the diaphragm the patient has significant metabolic activity with large axillary lymph nodes. In the abdomen and pelvis the patient has bulky lymphadenopathy with intense uptake including the retrocrural space, perirectal retroperitoneal area, and both internal and external iliac chains extending into the inguinal areas. Lymphadenopathy is bulky is in the iliac and inguinal areas. Findings are compatible with extensive lymphoma. ASSESSMENT/PLAN: 1. Recurrent non-Hodgkin's lymphoma (HCC) - ICD9: 202.88, ICD10: C85.98 (primary diagnosis) The patient was initially diagnosed with stage III diffuse large B-cell lymphoma in 2001. Apparently his initial biopsy was of a right inguinal lymph node, which revealed elements of follicular lymphoma plus DLBCL (records and pathology slides unavailable). He received first-line therapy with R-CHOP x 6 cycles completed June 2002. He subsequently received radiation therapy to the chest Jul 2002. He had a complete response to initial therapy and did well. In March 2023 he presented with increasing bilateral inguinal adenopathy. PET scan 04/24/2023 revealeddiffuse areas of lymphadenopathy consistent with recurrent lymphoma. On 05/07/2023 he underwent an incisional biopsy of a right inguinal lymph node at [facility]. Initial pathology per [facility] consistent with diffuse large B-cell lymphoma. However, on review per [facility] pathology it was felt to be consistent with follicular grade 3 lymphoma rather than diffuse large B-cell lymphoma. Hewas seen by Dr. Galdamez at [facility], and recommendations were to proceed with chemotherapy consisting of Bendamustine plus Rituxan x 6 cycles. BR cycle 1 started 06/10/2023 and the patient tolerated it well. Since starting chemotherapy his adenopathy has resolved. To date he has completed 3 cycles and remains clinically stable. He will proceed with cycle 4 starting today. We will restage with a PET scan in 2-3 weeks. Return in 4 weeks for cycle 5. 2. Acquired hypothyroidism - ICD9: 244.9, ICD10: E03.9 The patient developed post radiation hypothyroidism in 2001. Currently on Synthroid 125 mcg daily. Will monitor TFTs and adjust dosage accordingly. 3. Elevated Uric acid, suspected allergy to allopurinol Allopurinol started 06/06/2023 for the treatment of elevated uric acid and to prevent tumor lysis syndrome. The patient developed a diffuse rash by 06/25/2023 and the allopurinol was discontinued. The rash has resolved and the patient's uric acid level is currently normal. We will monitor the uric acid closely, and use alternative agents if indicated. 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 Repositioned needles 2 additional times. Clearly felt port wall against needle all 3 times. Mulptiple positions tried to get blood return with no return. Flushing easily; no pain. No swelling at port. Pt can not stay for cathflo today. Peripheral draw performed. 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 Jung, Dr. Emelia Gonzalez ([facility] [place]), Dr. Niesha Galdamez Portions of this encounter note have been copied from my note from 06/19/2023 and has been updated where appropriate, and reflect my current medical decision making from today. CC: This is a 67 year old male with recurrent lymphoma, seen for scheduled follow-up. INTERIM HISTORY: For the treatment of elevated uric acid allopurinol was started on 06/06. By 06/25 the patient developed a diffuse rash and the allopurinol was discontinued. He was given a Medrol Dosepak plus Benadryl as needed, and the rash has since resolved. The patient has had no other medical problems. He tolerated his first cycle of chemotherapy quite well, and since then his palpable lymph nodes have resolved. He feels extremely well today and desires to proceed with treatment as planned. He is excited that 2 of his sons are getting this month! MEDICATIONS: Current Outpatient Medications Medication Sig triamcinolone acetonide (KENALOG) 0.1 % cream Apply to affected area twice daily. allopurinol (ZYLOPRIM) 300 mg tablet Take 1 tablet by mouth once daily. collagen, hydrolysate, bovine, (COLLAGEN, HYDR, BOVINE,, BULK,) 100 % powd Take 1 Dose by mouth once daily. ondansetron (ZOFRAN) 8 mg tablet Take 1 tablet by mouth every 8 hours as needed for nausea/vomiting. prochlorperazine (COMPAZINE) 10 mg tablet Take 1 tablet by mouth every 6 hours as needed. predniSONE (DELTASONE) 20 mg tablet Take 1 tablet by mouth once daily. 2 daily x 5 days, then 1 daily levothyroxine (SYNTHROID) 125 mcg tablet Take 1 tablet by mouth every afternoon. MULTIVITAMIN ORAL Take 1 Dose by mouth once daily. KRILL OIL ORAL Take 1 Dose by mouth once daily. Current Facility-Administered Medications Medication Dose Route Frequency perflutren lipid microspheres 1.3 mL in NaCl (PF) 0.9% 10 mL injection (DEFINITY) INTRAVENOUS DIRECTED PRN sodium chloride 0.9 % (flush) 10 mL (BD POSIFLUSH) 10 mL INTRAVENOUS DIRECTED PRN ALLERGIES: ALLERGIES No Known Allergies PAST MEDICAL HISTORY: PAST MEDICAL HISTORY Diagnosis Date Diffuse large B cell lymphoma (HCC) 05/2023 Follicular lymphoma (HCC) GERD (gastroesophageal reflux disease) History of chemotherapy 2001 Diffuse large B cell Lymphoma History of radiation therapy 2001 Diffuse large B cell lymphoma History of thoracentesis Hypothyroidism PAST SURGICAL HISTORY: PAST SURGICAL HISTORY Procedure Laterality Date PAST SURGICAL HISTORY OF Bronchoscopy PAST SURGICAL HISTORY OF Thoracentesis FAMILY HISTORY: FAMILY HISTORY Family history unknown: Yes SOCIAL HISTORY: Social History Tobacco Use Smoking status: Former Types: Cigarettes Passive exposure: Past Smokeless tobacco: Never Substance Use Topics Alcohol use: Not Currently Drug use: Never COMPLETE REVIEW OF SYSTEMS: CONSTITUTION: Negative for pain, fatigue, weight loss, or appetite loss. EENT: Negative for mouth soreness, antibiotics use, epistaxis, visual problems, neck or facial swelling, fever/chills, bleeding gums, or hearing loss. CV: Negative for edema, calf swelling, palpitations, or chest pain. RESPIRATORY: Negative for cough, SOB, hemoptysis, or wheezing. GI: Negative for nausea/vomiting, heartburn, vomiting blood, dysphasia, diarrhea, blood in stool, constipation, early satiety, PICA, vegetarian, poor nutrition, abdominal fullness, or abdominal pain. NEUROLOGICAL: Negative for numbness/tingling, dizziness, gait disturbance, headache, speech disturbance, tremor, hemiparesis/sensory loss, or change in mental status. MUSCULOSKELETAL: Negative for joint pain, joint swelling, or proximal muscle weakness. SKIN: Negative for hair loss, bruising, nail changes, rash, itching, pallor, or jaundice. ENDO/URO: Negative for hot flashes, cold or heat intolerance, urinary frequency, urinary hesitancy,menorrhagia, or hematuria. PSYCH: Negative for anxiety, depression, or other. PHYSICAL EXAM: BP 116/70 Pulse 85 Temp 36.4 C (97.6 F) (Temporal) Resp 18 Ht 179.5 cm (5' 10.67 ) Wt 76.6 kg (168 lb 12.8 oz) SpO2 97% BMI 23.76 kg/m GENERAL EXAM: Well developed/well nourished; in no acute distress. SKIN: Negative for lesions, rashes, or ulcers on the upper and lower extremities and face. Negativefor palpations/nodules, purpura, and ecchymosis. EENT: Negative for conjunctiva, mucosal pallor, JVD, LAP, thyromegaly, and glossitis. Supple & PERRL. EXTREMITIES: Negative for cyanosis, clubbing, and crepitus. LUNGS: Negative to auscultation, respiratory effort, and percussion. CARDIOVASCULAR: Regular rate. Negative for murmurs/S3S4/abnormal sounds, edema, and carotid bruits. ABDOMEN: Negative for masses, hernia, and spleen/liver abnormalities. RECTAL: Not done PSYCHIATRIC: Negative for mood/affect changes, recent & remote memory changes, and judgement and insight. NEUROLOGICAL: Alert, oriented x person, place, time. Cranial nerves 2-12 intact. Sensory for pain, light touch, vibration intact on all 4 extremities. Reflexes symmetric for biceps/brachioradial/patella/achilles. MUSCULOSKELETAL: Negative examination of joints, bones, muscles/tendons of all four extremities forinspection, percussion, and palpation. Negative for misallignment, asymmetry, crepitation, tenderness, mass, effusions. Range of motion normal. Negative for joint instability, laxity, dislocation. Gait steady. Negative for swelling, erythema, tenderness, soft tissue swelling, and atrophy. PATHOLOGY: 05/07/2023 Right inguinal lymph node biopsy [facility]: Diffuse large B-cell lymphoma [facility] Pathology: Follicular lymphoma, grade 3A Comment: The histologic and immunophenotypic findings demonstrate 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 Definitive areas of diffuse large B-cell lymphoma arenot identified. LABS: Hemoglobin (g/dL) Date Value 07/08/2023 13.3 Hematocrit (%) Date Value 07/08/2023 41.1 WBC (k/uL) Date Value 07/08/2023 7.83 Platelet Count (k/uL) Date Value 07/08/2023 146 RADIOLOGY/OTHER STUDIES: 04/24/2023 PET scan (FeZo) Above the diaphragm the patient has significant metabolic activity with large axillary lymph nodes. In the abdomen and pelvis the patient has bulky lymphadenopathy with intense uptake including the retrocrural space, perirectal retroperitoneal area, and both internal and external iliac chains extending into the inguinal areas. Lymphadenopathy is bulky is in the iliac and inguinal areas. Findings are compatible with extensive lymphoma. ASSESSMENT/PLAN: 1. Recurrent non-Hodgkin's lymphoma (HCC) - ICD9: 202.88, ICD10: C85.98 (primary diagnosis) The patient was initially diagnosed with stage III diffuse large B-cell lymphoma in 2001. Apparently his initial biopsy was of a right inguinal lymph node, which revealed elements of follicular lymphoma plus DLBCL (records and pathology slides unavailable). He received first-line therapy with R-CHOP x 6 cycles completed June 2002. He subsequently received radiation therapy to the chest Jul 2002. He had a complete response to initial therapy and did well. In March 2023 he presented with increasing bilateral inguinal adenopathy. PET scan 04/24/2023 revealeddiffuse areas of lymphadenopathy consistent with recurrent lymphoma. On 05/07/2023 he underwent an incisional biopsy of a right inguinal lymph node at [facility]. Initial pathology per [facility] consistent with diffuse large B-cell lymphoma. However, on review per [facility] pathology it was felt to be consistent with follicular grade 3 lymphoma rather than diffuse large B-cell lymphoma. Hewas seen by Dr. Galdamez at [facility], and recommendations were to proceed with chemotherapy consisting of Bendamustine plus Rituxan x 6 cycles. BR cycle 1 started 06/10/2023 and the patient tolerated it well. Since starting chemotherapy his adenopathy has resolved. He will proceed with cycle 2 starting today. Miquel labs in 2 weeks. Return in 4weeks for follow-up. We will plan to restage with a PET scan after 3-4 cycles. 2. Acquired hypothyroidism - ICD9: 244.9, ICD10: E03.9 The patient developed post radiation hypothyroidism in 2001. Currently on Synthroid 125 mcg daily. Will monitor TFTs and adjust dosage accordingly. 3. Elevated Uric acid, suspected allergy to allopurinol Allopurinol started 06/06/2023 for the treatment of elevated uric acid and to prevent tumor lysis syndrome. The patient developed a diffuse rash by 06/25/2023 and the allopurinol was discontinued. The rash has resolved and the patient's uric acid level is currently normal. We will monitor the uric acid closely, and use alternative agents if indicated. Michael Boykin MD [facility] note* Diagnosis 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) documented in this encounter [facility]08-30-2023 Miscellaneous Notes* Telephone Encounter - Ivania Jackman RN - 07/02/2023 2:53 PM EDT TOXICITY CHECK SYMPTOM ASSESSMENT The patient is on Rituxan/Treanda. Called last week w/ c/o rash. Prescribed medrol dose pack and Triamcinalone cream on 06/27. FYI: Call placed to pt for f/u of the above. Pt reports that his rash is just about gone. Notes significant improvement since starting the medrol dose pack. Will take his last dose today. Denies needs presently. Will f/u as scheduled next week. Ivania Jackman RN documented in this encounterDay[facility]08-25-2023 Miscellaneous Notes* Telephone Encounter - Fifi Sommers RN - 06/27/2023 11:43 AM EDT Pt notified that both scripts were sent to [facility]. Pt states he's not sure that the cream will be beneficial because it's such large areas. Encouraged pt to at least try it on the most bothersome areas to see if he gets relief. Fifi Sommers RN * Telephone Encounter - Cleo Feliz APRN.MIRACLE - 06/27/2023 11:38 AM EDT The following approved medication requests have been transmitted electronically. Requested Prescriptions Signed Prescriptions Disp Refills triamcinolone acetonide (KENALOG) 0.1 % cream 454 g 1 Sig: Apply to affected area twice daily. Authorizing Provider: CLEO FELIZ methylPREDNISolone (MEDROL, JOHNNY,) 4 mg Dose-Pack 21 tablet 0 Sig: Use as directed. Authorizing Provider: CLEO FELIZ APRN.CNP * Telephone Encounter - Fifi Sommers RN - 06/27/2023 11:19 AM EDT Pt was taken off of prednisone on Friday. Pt states this was a taper and was instructed to stop . Please advise Fifi Sommers RN * Telephone Encounter - Cleo Feliz APRN.CNP - 06/27/2023 10:44 AM EDT Is patient still taking prednisone 20 mg daily? The following approved medication requests have been transmitted electronically. Requested Prescriptions Signed Prescriptions Disp Refills triamcinolone acetonide (KENALOG) 0.1 % cream 454 g 1 Sig: Apply to affected area twice daily. Authorizing Provider: CLEO FELIZ APRN.TENSIONING MACHINE OPERATOR * Telephone Encounter - Fifi Sommers RN - 06/27/2023 10:12 AM EDT Pt calls stating he has a rash on his chest, back, arms, legs that is not getting better. Called and spoke with Zeinab on Friday and was instructed to stop allopurinol and begin taking benadryl. Pt states he's taking benadryl every 5-6 hours. This has helped the itching some, but the rash has not cleared up at all. Pt describes this rash as welts or hives, and it's very blotchy. Message from previous telephone encounter mentions a medrol dosepak if rash doesn't improve. Please advise Fifi Sommers RN documented in this encounterDay[facility]08-23-2023 Miscellaneous Notes* Telephone Encounter - Ivania Jackman RN - 06/25/2023 9:22 AM EDT Pt notified and verbalizes understanding. Disposition: per Dr Boykin, patient directed to: Manage at home. Provided instructions and will call back. Pt will call the office back if his rash persists or worsens. Ivania Jackman RN * Telephone Encounter - Michael Boykin MD - 06/25/2023 9:10 AM EDT Possible allergic reaction. Would stop allopurinol. Continue OTC Benadryl for itch. If rash worsens we can phone in a [employer] Dosepak. * Telephone Encounter - Ivania Jackman RN - 06/25/2023 8:56 AM EDT Pt c/o red, raised, itchy rash to chest and back. Notes a few spots on his arms and legs. Taking OTC Benadrly w/ no relief. Denies any new meds, soaps, etc. S/p Cycle 1 Rituxan/Treanda on 06/10 & 06/11. Was also on Prednisone for palliative reasons. Took his last dose yesterday. Taking Allopurinol as well. Ivania Jackman RN documented in this encounterDay[facility]08-17-2023 [facility] History of Present illness Narrative* Mindi Oliva RN - 06/19/2023 10:30 AM EDTSummary: IRB [id number] Informed Consent IRB: [id number] Title: Collection of Blood and Bone Marrow and Other Tissues for Patients with Hematologic Disorders for Research Purposes Patient seen in clinic for informed consent of the above mentioned protocol. Patient agrees to participate in the above mentioned research study. The patient has signed a copy of the informed consent. Patient has contact information for the study team and Dr. Michael Boykin M.D. See consent note in Epic. Patient eligible for a research blood draw. 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 Requested Prescriptions Signed Prescriptions Disp Refills ondansetron (ZOFRAN) 8 mg tablet 90 tablet 1 Sig: Take 1 tablet by mouth every 8 hours as needed for nausea/vomiting. Authorizing Provider: CLEO FELIZ prochlorperazine (COMPAZINE) 10 mg tablet 100 tablet 1 Sig: Take 1 tablet by mouth every 6 hours as needed. Authorizing Provider: CLEO FELIZ APRN.TENSIONING MACHINE OPERATOR * Telephone Encounter - Ivania Jackman RN - 06/06/2023 3:19 PM EDT Pt requesting his antiemetics be sent to [facility]. States that he can get them cheaper there using a Good RX coupon. Cleo: Script pended. Ivania Jackman RN documented in this encounterDayton [facility] Center08-04-2023 [facility] Miscellaneous Notes * Telephone Encounter - Ivania Jackman RN - 06/06/2023 11:39 AM EDT Pt notified and verbalizes understanding. Ivania Jackman RN * Telephone Encounter - Cleo Feliz APRN.CNP - 06/06/2023 8:59 AM EDT The following approved medication requests have been transmitted electronically. Requested Prescriptions Signed Prescriptions Disp Refills allopurinol (ZYLOPRIM) 300 mg tablet 30 tablet 1 Sig: Take 1 tablet by mouth once daily. Authorizing Provider: CLEO FELIZ APRN.TENSIONING MACHINE OPERATOR * Telephone Encounter - Ivania Jackman RN - 06/06/2023 7:59 AM EDT Pt will be in for chemo education today @ 10 AM. Script pended. Ivania Jackman RN * Telephone Encounter - Ivania Jackman RN - 06/06/2023 7:59 AM EDT ----- Message from Michael Boykin MD sent at 06/05/2023 5:42 PM EDT ----- Please inform the patient that his uric acid is elevated. Please prescribe allopurinol 300 mg dailyto start before chemo. Would give at least 1 month. 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 Requested Prescriptions Signed Prescriptions Disp Refills ondansetron (ZOFRAN) 8 mg tablet 90 tablet 1 Sig: Take 1 tablet by mouth every 8 hours as needed for nausea/vomiting. Authorizing Provider: CLEO FELIZ prochlorperazine (COMPAZINE) 10 mg tablet 100 tablet 1 Sig: Take 1 tablet by mouth every 6 hours as needed. Authorizing Provider: CLEO FELIZ APRN.TENSIONING MACHINE OPERATOR * Telephone Encounter - Ivania Jackman RN - 06/05/2023 4:07 PM EDT Pt will be in tomorrow for education (Rituxan, Treanda) Scripts for antiemetics pended. Ivania Jackman RN documented in this encounterDayton Va Medical Center08-03-2023 NoteMagruder [facility]08-[facility]23 History of Present illness Narrative* Michael Boykin MD - 06/05/2023 8:10 AM EDT PATIENT NAME: Katia Faulkner DATE: 06/05/2023 PRIMARY CARE PHYSICIAN: No PCP OTHER PHYSICIANS: Dr. Jung, Dr. Emelia Gonzalez ([facility] [place]), Dr. Niesha Galdamez Portions of this encounter note have been copied from my note from 05/22/2023 and has been updated where appropriate, and reflect my current medical decision making from today. CC: This is a 67 year old male with recurrent lymphoma, seen for scheduled follow-up. INTERIM HISTORY: Since the patient's last visit here his recent lymph node biopsy was reviewed by [facility] pathology, and it was felt to be consistent with follicular grade 3 lymphoma rather than diffuse large B-cell lymphoma. He was seen by Dr. Galdamez at [facility], and recommendations were to proceed with chemotherapy consisting of Bendamustine plus Rituxan x6 cycles. In preparation for chemotherapy the patient underwent port placement by Dr. Jung, and he tolerated the procedure well. Over the past week or so he has developed significant pain related to his lymphadenopathy. He was started on prednisone with palliative intent on 06/02/2023, and the pain has essentially resolved. He has had no other medical changes, and overall feels well today. MEDICATIONS: Current Outpatient Medications Medication Sig predniSONE (DELTASONE) 20 mg tablet Take 1 tablet by mouth once daily. 2 daily x 5 days, then 1 daily levothyroxine (SYNTHROID) 125 mcg tablet Take 1 tablet by mouth every afternoon. MULTIVITAMIN ORAL Take by mouth. KRILL OIL ORAL Take by mouth. Current Facility-Administered Medications Medication Dose Route Frequency perflutren lipid microspheres 1.3 mL in NaCl (PF) 0.9% 10 mL injection (DEFINITY) INTRAVENOUS DIRECTED PRN sodium chloride 0.9 % (flush) 10 mL (BD POSIFLUSH) 10 mL INTRAVENOUS DIRECTED PRN ALLERGIES: ALLERGIES No Known Allergies PAST MEDICAL HISTORY: PAST MEDICAL HISTORY Diagnosis Date Diffuse large B cell lymphoma (HCC) 05/2023 Follicular lymphoma (HCC) GERD (gastroesophageal reflux disease) History of chemotherapy 2002 Diffuse large B cell Lymphoma History of radiation therapy 2002 Diffuse large B cell lymphoma History of thoracentesis Hypothyroidism PAST SURGICAL HISTORY: PAST SURGICAL HISTORY Procedure Laterality Date PAST SURGICAL HISTORY OF Bronchoscopy PAST SURGICAL HISTORY OF Thoracentesis FAMILY HISTORY: FAMILY HISTORY Family history unknown: Yes SOCIAL HISTORY: Social History Tobacco Use Smoking status: Former Types: Cigarettes Passive exposure: Past Smokeless tobacco: Never Substance Use Topics Alcohol use: Not Currently Drug use: Never COMPLETE REVIEW OF SYSTEMS: CONSTITUTION: Negative for pain, fatigue, weight loss, or appetite loss. EENT: Negative for mouth soreness, antibiotics use, epistaxis, visual problems, neck or facial swelling, fever/chills, bleeding gums, or hearing loss. CV: Negative for edema, calf swelling, palpitations, or chest pain. RESPIRATORY: Negative for cough, SOB, hemoptysis, or wheezing. GI: Negative for nausea/vomiting, heartburn, vomiting blood, dysphasia, diarrhea, blood in stool, constipation, early satiety, PICA, vegetarian, poor nutrition, abdominal fullness, or abdominal pain. NEUROLOGICAL: Negative for numbness/tingling, dizziness, gait disturbance, headache, speech disturbance, tremor, hemiparesis/sensory loss, or change in mental status. MUSCULOSKELETAL: Negative for joint pain, joint swelling, or proximal muscle weakness. SKIN: Negative for hair loss, bruising, nail changes, rash, itching, pallor, or jaundice. ENDO/URO: Negative for hot flashes, cold or heat intolerance, urinary frequency, urinary hesitancy,menorrhagia, or hematuria. PSYCH: Negative for anxiety, depression, or other. PHYSICAL EXAM: BP 129/72 Pulse 83 Temp 36.3 C (97.4 F) (Temporal) Resp 16 Ht 177.8 cm (5' 10 ) Wt 80.6 kg (177 lb 9.6 oz) SpO2 96% BMI 25.48 kg/m GENERAL EXAM: Well developed/well nourished; in no acute distress. SKIN: Negative for lesions, rashes, or ulcers on the upper and lower extremities and face. Negativefor palpations/nodules, purpura, and ecchymosis. EENT: Negative for conjunctiva, mucosal pallor, JVD, LAP, thyromegaly, and glossitis. Supple & PERRL. EXTREMITIES: Negative for cyanosis, clubbing, and crepitus. LUNGS: Negative to auscultation, respiratory effort, and percussion. CARDIOVASCULAR: Regular rate. Negative for murmurs/S3S4/abnormal sounds, edema, and carotid bruits. ABDOMEN: Negative for masses, hernia, and spleen/liver abnormalities. RECTAL: Not done PSYCHIATRIC: Negative for mood/affect changes, recent & remote memory changes, and judgement and insight. NEUROLOGICAL: Alert, oriented x person, place, time. Cranial nerves 2-12 intact. Sensory for pain, light touch, vibration intact on all 4 extremities. Reflexes symmetric for biceps/brachioradial/patella/achilles. MUSCULOSKELETAL: Negative examination of joints, bones, muscles/tendons of all four extremities forinspection, percussion, and palpation. Negative for misallignment, asymmetry, crepitation, tenderness, mass, effusions. Range of motion normal. Negative for joint instability, laxity, dislocation. Gait steady. Negative for swelling, erythema, tenderness, soft tissue swelling, and atrophy. PATHOLOGY: 05/07/2023 Right inguinal lymph node biopsy [facility]: Diffuse large B-cell lymphoma [facility] Pathology: Follicular lymphoma, grade 3A Comment: The histologic and immunophenotypic findings demonstrate 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 Definitive areas of diffuse large B-cell lymphoma arenot identified. LABS: Hemoglobin (g/dL) Date Value 06/05/2023 11.8 Hematocrit (%) Date Value 06/05/2023 37.1 WBC (k/uL) Date Value 06/05/2023 14.03 Platelet Count (k/uL) Date Value 06/05/2023 334 RADIOLOGY/OTHER STUDIES: 04/24/2023 PET scan (FeZo) Above the diaphragm the patient has significant metabolic activity with large axillary lymph nodes. In the abdomen and pelvis the patient has bulky lymphadenopathy with intense uptake including the retrocrural space, perirectal retroperitoneal area, and both internal and external iliac chains extending into the inguinal areas. Lymphadenopathy is bulky is in the iliac and inguinal areas. Findings are compatible with extensive lymphoma. ASSESSMENT/PLAN: 1. Recurrent non-Hodgkin's lymphoma (HCC) - ICD9: 202.88, ICD10: C85.98 (primary diagnosis) The patient was initially diagnosed with stage III diffuse large B-cell lymphoma in 2001. Apparently his initial biopsy was of a right inguinal lymph node, which revealed elements of follicular lymphoma plus DLBCL (records and pathology slides unavailable). He received first-line therapy with R-CHOP x 6 cycles completed June 2002. He subsequently received radiation therapy to the chest Jul 2002. He had a complete response to initial therapy and did well. In March 2023 he presented with increasing bilateral inguinal adenopathy. PET scan 04/24/2023 revealeddiffuse areas of lymphadenopathy consistent with recurrent lymphoma. On 05/07/2023 he underwent an incisional biopsy of a right inguinal lymph node at [facility]. Initial pathology per [facility] consistent with diffuse large B-cell lymphoma. However, on review per [facility] pathology it was felt to be consistent with follicular grade 3 lymphoma rather than diffuse large B-cell lymphoma. Hewas seen by Dr. Galdamez at [facility], and recommendations were to proceed with chemotherapy consisting of Bendamustine plus Rituxan x 6 cycles. In preparation for chemotherapy the patient underwent port placement by Dr. Jung. Clinically the patient has had increasing pain from his diffuse lymphadenopathy, for which he was started on prednisone with palliative intent 06/02/2023. His pain has since resolved, and he currently is stable and minimally symptomatic. As recommended the patient will proceed with Bendamustine plus Rituxan. Cycle 1 will start on 06/10/2023. I will see him back 10 days later for follow-up and miquel labs. The patient will wean and discontinue prednisone over the next 10 days. Allopurinol will be startedto prevent hyperuricemia. 2. Acquired hypothyroidism - ICD9: 244.9, ICD10: E03.9 The patient developed post radiation hypothyroidism in 2001. Currently on Synthroid 125 mcg daily. Will monitor TFTs and adjust dosage accordingly. Michael Boykin MD CC: Dr. Jung, Dr. Emelia Gonzalez ([facility] [place]) documented in this encounterDayton Va Medical Center07-31-2023 Miscellaneous Notes* Telephone Encounter - Corinne Ragland RN - 06/02/2023 2:47 PM EDT Pt called and informed of RX for prednisone. He is aware we can attempt pain medications if pain persists or worsens. Corinne Ragland RN * Telephone Encounter - Corinne Ragland RN - 06/02/2023 2:10 PM EDT RX pended, please review and sign if agreeable. Corinne Ragland RN * Telephone Encounter - Michael Boykin MD - 06/02/2023 2:01 PM EDT Okay to prescribe prednisone 20 mg 2 daily x5 days, then 1 daily (#30). That should help until the chemotherapy is started and kicks in. He can also take painkillers if necessary * Telephone Encounter - Corinne Ragland RN - 06/02/2023 10:43 AM EDT Pt seen by Dr Castaneda last week. Was notified by her, yesterday, of discussion by tumor board and their recommendations of beginning treatment. Pt has appt with [facility] , but is having pain in swollen lymph nodes and difficulty sleeping at night. Asking for medication, if possible to help, until treatment begins. 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 No answer to left detailed message. Niesha Galdamez MD Date: June 01, 2023. documented in this encounterDayton Va Medical Center07-25-2023 NoteMagruder Hospital07-25-2023 Nurse Note* Rosa Elena Lazaro RN - 05/27/2023 2:51 PM EDT Additional intake questions: Has the patient had fever, nausea, vomiting, diarrhea, constipation, fatigue for > 1 week? No Does the patient have a decreased appetite? No Does patient want to see a [employer] Operator? No (yes to any of above refer patient to schedulers for dietitian appointment) ) Does patient have any new or increased numbness or tingling of extremities? No Is patient interested in fertility information? No Does patient need any prescription refills? No Does patient have an advanced directive in place? No, Patient referred to Resource Center Electronically Signed By: Rosa Elena Lazaro RN documented in this encounterDayton Va Medical Center07-25-2023 History of Present illness Narrative* Niesha Galdamez MD - 05/27/2023 2:43 PM EDT Images from the original note were not included. [facility] DEPARTMENT OF HEMATOLOGY AND MEDICAL ONCOLOGY REASON FOR VISIT: Initial Consultation - B-cell NHL DATE OF VISIT: May 27, [address] Boykin for an opinion regarding management of DLBCL. My final recommendations will be communicated back to the requesting physician by way of shared medical record or letter via US mail. HISTORY OF PRESENT ILLNESS: Katia Gabriel is a 67 year old man who presents for an initial consultation. He has a historyof DLBCL arising from follicular lymphoma. At time of diagnosis he had a lot of SOB given location of the disease. He was treated with six cycles of CHOP (+/- Ritxuimab, OSH records mention R but he does not recall this) followed by radiation to his chest. He did well with therapy and achieved a complete remission. His originally oncologist is no longer at the practice and he has had several. Recently he felt a lump on his leg which prompted evaluation with biopsy and imaging. The new biopsy showed DLBCL according to the local OSH read. He decided to establish with Dr. Boykin at [facility].He does have some fatigue and just minimal weight loss of about five pounds is otherwise feeling well. No fevers, drenching night sweats, unintentional weight loss. No enlarged lymph nodes. 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 MULTIVITAMIN ORAL Take by mouth. KRILL OIL ORAL Take by mouth. Current Facility-Administered Medications Medication Dose Route Frequency Provider Last Rate Last Admin perflutren lipid microspheres 1.3 mL in NaCl (PF) 0.9% 10 mL injection (DEFINITY) INTRAVENOUS DIRECTED PRMichael Clemons MD sodium chloride 0.9 % (flush) 10 mL (BD POSIFLUSH) 10 mL INTRAVENOUS DIRECTED PRMichael Clemons MD CURRENT ALLERGIES: ALLERGIES No Known Allergies COMPLETE REVIEW OF SYSTEMS: ROS The following were negative unless bolded General: Fatigue, fevers, chills, or night sweats. Poor appetite, early satiety, or weight loss. HEENT: Headaches, lightheadedness, mucositis or pharyngitis. Cardiac: Chest pain or palpitations. Pulmonary: SOB, coughing or wheezing. GI: Abdominal pain or bloating. Nausea or vomiting. Diarrhea or constipation. : Hematuria. Musculoskeletal: Joint pain, muscle pain, bone pain. Skin: Lesions or rashes. Neurological: Focal motor or sensory complaints. Numbness or tingling. Coordination or balance problems. Heme: Bruising or bleeding. Epistaxis, gum bleeding. Melena, hematochezia,. Lymphatics: Enlarged lymph nodes. Psych: Anxiety, depression, insomnia PHYSICAL EXAM: VS: BP 144/85 Pulse 90 Temp 36.7 C (98 F) (Temporal) Resp 18 Ht 177.8 cm (5' 10 ) Wt 80.2kg (176 lb 12.8 oz) SpO2 97% BMI 25.37 kg/m ECO- Fully active, able to carry on all pre-disease performance w/o restriction. GENERAL: Well apearing man who is awake, alert, no acute distress PYSCH: Alert and oriented. HEENT: EOMI. Anicteric sclerae. PERRL. Moist mucous membranes without lesions. Neck supple. LYMPH NODES: Right axillary lymphadenopathyb and bilateral bulky inguinal lymphadenopathy R>L HEART: Regular rate and rhythm, no murmurs, rubs, or gallops. LUNGS: Clear to auscultation bilaterally, no wheezes or crackles. ABDOMEN: +BS, Soft, nondistended, nontender. No hepatosplenomegaly MSK: Grossly intact ROM. EXTREMITIES: No edema NEURO: CN II-XII grossly intact, normal gait. SKIN: No rashes or other lesions. DATA REVIEWED: Component Latest Ref Rng & Units 05/13/2023 WBC 3.70 - 11.00 k/uL 9.67 RBC 4.20 - 6.00 m/uL 4.60 Hemoglobin 13.0 - 17.0 g/dL 13.4 Hematocrit 39.0 - 51.0 % 42.3 MCV 80.0 - 100.0 fL 92.0 MCH 26.0 - 34.0 pg 29.1 MCHC 30.5 - 36.0 g/dL 31.7 RDW-CV 11.5 - 15.0 % 14.1 Platelet Count 150 - 400 k/uL 306 MPV 9.0 - 12.7 fL 9.7 Neut% % 77.3 Abs Neut (ANC) 1.45 - 7.50 k/uL 7.47 Lymph% % 7.1 Abs Lymph 1.00 - 4.00 k/uL 0.69 (L) Gilliam% % 11.5 Abs Gilliam <0.87 k/uL 1.11 (H) Eosin% % 2.8 Abs Eosin <0.46 k/uL 0.27 Baso% % 0.8 Abs Baso <0.11 k/uL 0.08 Immature Gran % % 0.5 IMMATURE GRANS (ABS) <0.10 k/uL 0.05 NRBC /100 WBC 0.0 Absolute nRBC <0.01 k/uL <0.01 DTYPE Auto Component Latest Ref Rng & Units 05/13/2023 LD 135 - 225 U/L 420 (H) WHOLE BODY PET/CT 04/24/2023 TECHNIQUE: Following IV injection of 16.00 mCi of F-18 FDG, PET tumor imaging was acquired from the base of the skull to the mid thighs. Computed tomography was used for purposes of attenuation correction and anatomic localization. Fusion imaging was utilized for interpretation. Uptake time 66 min. Glucose level 83 mg/dl. COMPARISON: None HISTORY: ORDERING SYSTEM PROVIDED HISTORY: 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) TECHNOLOGIST PROVIDED HISTORY: recurrence of NHL FINDINGS: HEAD/NECK: No metabolically active cervical adenopathy. Severe intensity uptake is noted within a medial right axillary lymph node of 19 mm short axis diameter consistent with neoplasia. Smaller lymph nodes are present in the infraclavicular area on the right with moderate FDG uptake. Small to slightly enlarged left axillary lymph nodes are present with mild to moderate metabolic activity consistent with neoplasia. CHEST: Uptake of radiotracer in the great vessels and left ventricular myocardium is within physiologic range. No metabolically active mediastinal or hilar lymphadenopathy. No metabolically active pulmonary nodules or masses. ABDOMEN/PELVIS: Uptake of radiotracer in the liver, spleen and urinary collecting systems is within physiologic range. Bowel uptake is unremarkable. Extensive bulky lymphadenopathy is noted in the retrocrural space, periaortic retroperitoneal region extending from the level of the kidneys through the bifurcation consistent with known lymphoma. Very large bulky pelvic adenopathy is noted with intense metabolic activity largest lymph node in the right external chain of 3.8 cm. SUV maximum is approximately 20. Similarly bulky significantly enlarged bilateral inguinal lymph nodes demonstrate intense radiotracer uptake consistent with severe metabolic activity with findings compatible with extensive lymphoma. BONES/SOFT TISSUE: No suspicious areas of osseous metabolic activity. Small mildly active focus is noted in the subcutaneous tissues in the left posterior upper abdomen possibly a small skin infiltrate. INCIDENTAL CT FINDINGS: Coronary artery disease is present. Scattered colonic diverticula are noted. Multilevel degenerative changes in the spine. IMPRESSION: 1. Above the diaphragm, the patient has significant metabolic activity within enlarged axillary lymph nodes. 2. In the abdomen and pelvis the patient has bulky lymphadenopathy with intense radiotracer uptake including the retrocrural space, periaortic retroperitoneal area and both internal and external iliac chains extending into the inguinal areas. Lymphadenopathy is bulkiest in the iliac and inguinal areas. Overall appearance compatible with extensive lymphoma. Deauville score: 5. Exam End: 04/24/23 1:53 PM Specimen Collected: 04/24/23 1:58 PM Last Resulted: 04/24/23 7:12 PM Received From: [facility] Result Received: 05/01/23 10:37 AM ASSESSMENT AND PLAN: Katia Faulkner is a 67 year old man who presents for an initial consultation for DLBCL. We reviewed his history in detail as described above. Briefly, he has a remote history of DLBCL arising from [place] which was treated with CHOP (+/-R) and chest XRT in 2001. He achieved CR and has been in CR until noticing lymphadenopathy recently. PET/CT confirms diffuse lymphadenopathyve abo and below diaphragm with bulky disease especially in bilateral inguinal regions. I discussed need for pathology review of most recent biopsy. We will be unable to attain his previous biopsy given given how long ago it was done. I explained that given >10 years from diagnosis we can approach this as de josse DLBCLand not relapsed disease and therefore avoid transplantation. Considerations will include R-CEOP ordose adjusted R-EPOCH without dose escalation. We also need FISH and yesterday's echo to finalize treatment plan. Will call following these. He will follow up with Dr. Boykin next week. I am happy tosee him again as needed. Niesha Galdamez MD Associate Staff Physician [address] [address] Pager: [phone] CC: Michael Boykin ([facility]) [address] [place] [address] [place] [address] . ADDENDUM: Case presented at tumor board and pathologist explained that [facility] Path review shows follicular lymphoma grade 3A and NOT DLBCL. Outside slides ([id number], 05/07/2023), [place], [place] Right inguinal lymph node, excisional biopsy: - Follicular lymphoma, grade 3A (see comment). JUDE/JACKSON 05/30/2023 Diagnosis Comment The histologic and immunophenotypic findings demonstrate 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 Definitive areas of diffuse large B-cell lymphoma are not identified. The case was reviewed at the hematopathology consensus conference on 05/30/2023 and results discussed with Dr. Castaneda on 05/30/2023. Because of this change in diagnosis as well as prior anthracycline treatment consensus is to treat with BR x 6 cycles. I will discuss with patient and Dr. Ashutosh Galdamez MD documented in this encounterDayton Va Medical Center07-24-2023 Miscellaneous Notes* Telephone Encounter - Fabi Freed - 05/26/2023 2:[address] Jung office they received this referral and have patient scheduled with Dr. Jung for portplacement on 05/28 @[facility]. Fabi Wong * Telephone Encounter - Leslie Mc - 05/26/2023 8:26 AM EDT Records faxed to Dr. Jung. * Telephone Encounter - Fabi Freed - 05/26/2023 8:08 AM EDT Clara: Information ready for you. Fabi Wong * Telephone Encounter - Sandra Clifton - 05/23/2023 9:05 AM EDT Patient would like a referral to Dr. Jung for a port placement. He is a known patient to Dr. Jung and the doctor said he would do this for the patient. Thank you. documented in this encounterDayton Va Medical Center07-20-2023 NoteMag[facility]07-20-2023 History of Present illness Narrative* Michael Boykin MD - 05/22/2023 8:17 AM EDT PATIENT NAME: Katia Faulkner DATE: 05/22/2023 PRIMARY CARE PHYSICIAN: No PCP OTHER PHYSICIANS: Dr. Jung, Dr. Emelia Gonzalez ([facility] [place]) Portions of this encounter note have been copied from my note from 05/13/2023 and has been updated where appropriate, and reflect my current medical decision making from today. CC: This is a 67 year old male with recurrent lymphoma, seen for scheduled follow-up. INTERIM HISTORY: Labs obtained at the patient's initial visit here revealed an elevated LDH and sedrate, otherwise unremarkable. Final pathology of his inguinal lymph node biopsy performed 05/07/2023 confirmed diffuse large B-cell lymphoma. Clinically the patient feels about the same. His appetite is fair, but he has lost several pounds over the past few months. Occasional mild night sweats, no fevers. He has discomfort in his inguinal area, but no severe pain. He also complains of mild mid back pain. MEDICATIONS: Current Outpatient Medications Medication Sig levothyroxine (SYNTHROID) 125 mcg tablet Take 1 tablet by mouth every afternoon. MULTIVITAMIN ORAL Take by mouth. KRILL OIL ORAL Take by mouth. Current Facility-Administered Medications Medication Dose Route Frequency perflutren lipid microspheres 1.3 mL in NaCl (PF) 0.9% 10 mL injection (DEFINITY) INTRAVENOUS DIRECTED PRN sodium chloride 0.9 % (flush) 10 mL (BD POSIFLUSH) 10 mL INTRAVENOUS DIRECTED PRN ALLERGIES: ALLERGIES No Known Allergies PAST MEDICAL HISTORY: PAST MEDICAL HISTORY Diagnosis Date Diffuse large B cell lymphoma (HCC) 05/2023 Follicular lymphoma (HCC) GERD (gastroesophageal reflux disease) History of chemotherapy 2002 Diffuse large B cell Lymphoma History of radiation therapy 2002 Diffuse large B cell lymphoma History of thoracentesis Hypothyroidism PAST SURGICAL HISTORY: PAST SURGICAL HISTORY Procedure Laterality Date PAST SURGICAL HISTORY OF Bronchoscopy PAST SURGICAL HISTORY OF Thoracentesis FAMILY HISTORY: FAMILY HISTORY Family history unknown: Yes SOCIAL HISTORY: Social History Tobacco Use Smoking status: Former Types: Cigarettes Passive exposure: Past Smokeless tobacco: Never Substance Use Topics Alcohol use: Not Currently Drug use: Never COMPLETE REVIEW OF SYSTEMS: CONSTITUTION: Negative for pain, fatigue, weight loss, or appetite loss. EENT: Negative for mouth soreness, antibiotics use, epistaxis, visual problems, neck or facial swelling, fever/chills, bleeding gums, or hearing loss. CV: Negative for edema, calf swelling, palpitations, or chest pain. RESPIRATORY: Negative for cough, SOB, hemoptysis, or wheezing. GI: Negative for nausea/vomiting, heartburn, vomiting blood, dysphasia, diarrhea, blood in stool, constipation, early satiety, PICA, vegetarian, poor nutrition, abdominal fullness, or abdominal pain. NEUROLOGICAL: Negative for numbness/tingling, dizziness, gait disturbance, headache, speech disturbance, tremor, hemiparesis/sensory loss, or change in mental status. MUSCULOSKELETAL: Negative for joint pain, joint swelling, or proximal muscle weakness. SKIN: Negative for hair loss, bruising, nail changes, rash, itching, pallor, or jaundice. ENDO/URO: Negative for hot flashes, cold or heat intolerance, urinary frequency, urinary hesitancy,menorrhagia, or hematuria. PSYCH: Negative for anxiety, depression, or other. PHYSICAL EXAM: BP 120/73 Pulse 84 Temp 36.8 C (98.3 F) (Temporal) Resp 16 Ht 177.8 cm (5' 10 ) Wt 78.7 kg (173 lb 9.6 oz) SpO2 97% BMI 24.91 kg/m GENERAL EXAM: Well developed/well nourished; in no acute distress. SKIN: Negative for lesions, rashes, or ulcers on the upper and lower extremities and face. Negativefor palpations/nodules, purpura, and ecchymosis. EENT: Negative for conjunctiva, mucosal pallor, JVD, LAP, thyromegaly, and glossitis. Supple & PERRL. EXTREMITIES: Negative for cyanosis, clubbing, and crepitus. LUNGS: Negative to auscultation, respiratory effort, and percussion. CARDIOVASCULAR: Regular rate. Negative for murmurs/S3S4/abnormal sounds, edema, and carotid bruits. ABDOMEN: Negative for masses, hernia, and spleen/liver abnormalities. RECTAL: Not done PSYCHIATRIC: Negative for mood/affect changes, recent & remote memory changes, and judgement and insight. NEUROLOGICAL: Alert, oriented x person, place, time. Cranial nerves 2-12 intact. Sensory for pain, light touch, vibration intact on all 4 extremities. Reflexes symmetric for biceps/brachioradial/patella/achilles. MUSCULOSKELETAL: Negative examination of joints, bones, muscles/tendons of all four extremities forinspection, percussion, and palpation. Negative for misallignment, asymmetry, crepitation, tenderness, mass, effusions. Range of motion normal. Negative for joint instability, laxity, dislocation. Gait steady. Negative for swelling, erythema, tenderness, soft tissue swelling, and atrophy. PATHOLOGY: 05/07/2023 Right inguinal lymph node biopsy ([facility]) Diffuse large B-cell lymphoma LABS: Hemoglobin (g/dL) Date Value 05/13/2023 13.4 Hematocrit (%) Date Value 05/13/2023 42.3 WBC (k/uL) Date Value 05/13/2023 9.67 Platelet Count (k/uL) Date Value 05/13/2023 306 RADIOLOGY/OTHER STUDIES: 04/24/2023 PET scan ([facility]) Above the diaphragm the patient has significant metabolic activity with large axillary lymph nodes. In the abdomen and pelvis the patient has bulky lymphadenopathy with intense uptake including the retrocrural space, perirectal retroperitoneal area, and both internal and external iliac chains extending into the inguinal areas. Lymphadenopathy is bulky is in the iliac and inguinal areas. Findings are compatible with extensive lymphoma. ASSESSMENT/PLAN: 1. Diffuse large B-cell lymphoma (HCC) - ICD9: 202.88, ICD10: C85.98 (primary diagnosis) The patient was initially diagnosed with stage III diffuse large B-cell lymphoma in 2001. Apparently his initial biopsy was of a right inguinal lymph node, which revealed elements of follicular lymphoma plus DLBCL (records and pathology slides unavailable). He received first-line therapy with R-CHOP x 6 cycles completed June 2002. He subsequently received radiation therapy to the chest Jul 2002. He had a complete response to initial therapy and did well. In March 2023 he presented with increasing bilateral inguinal adenopathy. PET scan 04/24/2023 revealeddiffuse areas of lymphadenopathy consistent with recurrent lymphoma. On 05/07/2023 he underwent an incisional biopsy of a right inguinal lymph node at [facility]. Pathology revealed diffuse large B-cell lymphoma. Currently he is symptomatic with mild pain plus night sweats/weight loss. Options for further management were discussed at length with the patient and his . They are aware that standard treatment would consist of aggressive chemotherapy. If his current condition truly represents recurrence of his initial DLBCL then a stem cell transplant would be considered, but his current disease may represent a de josse lymphoma in which case standard chemotherapy would be mostreasonable. At this time we will arrange for his recent biopsy to be reviewed at [facility]. Unfortunately, his initial biopsy from 2001 is not available for review. He will be referred to [facility] lymphoma division for specific recommendations. In the meantime we will check a baseline echo and arrange for port to be replaced. I will see him back in 2 weeks for follow-up. 2. Acquired hypothyroidism - ICD9: 244.9, ICD10: E03.9 The patient developed post radiation hypothyroidism in 2001. Currently on Synthroid 125 mcg daily. Will monitor TFTs and adjust dosage accordingly. Michael Boykin MD CC: Dr. Jung, Dr. Emelia Gonzalez ([facility] [place]) documented in this encounterDayton [facility] Center07-19-2023 Miscellaneous Notes* Telephone Encounter - Ivania Jackman RN - 05/21/2023 3:24 PM EDT Per pt, his 2001 lymph node biopsy was done per Dr Jung @ [facility]. Spoke aparna/ Claire in Medical Records. She reports that they only keep records for 10 years. They will not be able to retrieve pt's original path report. Ivania Jackman RN documented in this encounterDayton Va Medical Center07-18-2023 Miscellaneous Notes* Telephone Encounter - Emma Mendoza - 05/20/2023 2:39 PM EDT Spoke to Alma Rosa at [facility], she has order and will call patient to schedule. * Telephone Encounter - Ivania Jackman RN - 05/19/2023 3:[address] Boykin, pt's LN biopsy was positive for DLBCL. Recommends we get an ECHO and port placed. Aniket to reach out to main campus doctor regarding treatment options. Pt notified and verbalizes understanding. Agrees to ECHO, but wishes to wait on port until he speaks w/ Dr at 's appointment. BRM: ECHO order pended. Clerical: Please schedule ECHO at [facility]. Pt would prefer an appointment next week if possible. Ivania Jackman, RN documented in this encounterDayton Va Medical Center07-14-2023 Miscellaneous Notes* Telephone Encounter - Gretchen Arora - 05/16/2023 9:51 AM EDT 2 nd opinion pathology requested from [facility] / [facility] to be sent to [facility] for review. documented in this encounterDayton Va Medical Center07-11-2023 [facility] History of Present illness Narrative* Michael Boykin MD - 05/13/2023 8:16 AM EDT PATIENT NAME: Katia Faulkner DATE: 05/13/2023 PRIMARY CARE PHYSICIAN: No PCP OTHER PHYSICIANS: Dr. Jung, Dr. Emelia Gonzalez ([facility] [place]) HPI: This is a 67 year old male with recurrent lymphoma, referred for further management. The patient was initially diagnosed with stage III diffuse large B-cell lymphoma in 2001. Apparently his initial biopsy was of a right inguinal lymph node, which revealed elements of follicular lymphoma plus DLBCL. He received first- line therapy with R-CHOP x 6 cycles completed June 2002. He subsequently received radiation therapy to the chest Jul 2002. He had a complete response to initial therapy and did well. In March 2023 he presented with increasing bilateral inguinal adenopathy. PET scan 04/24/2023 revealeddiffuse areas of lymphadenopathy consistent with recurrent lymphoma. On 05/07/2023 he underwent incisional biopsy of a right inguinal lymph node at [facility]. Pathology currently pending. Currently the patient's main complaint is fatigue. He has lost 5 to 10 pounds in the past 3 months.No fevers or night sweats. He has discomfort in his inguinal area from the lymphadenopathy, but no severe pain. He has a history of smoking and continue to do so. He drinks alcohol socially. 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 MEDICATIONS: No current outpatient medications on file. No current facility-administered medications for this visit. ALLERGIES: ALLERGIES Not on File PAST MEDICAL HISTORY: No past medical history on file. PAST SURGICAL HISTORY: No past surgical history on file. FAMILY HISTORY: No family history on file. SOCIAL HISTORY: COMPLETE REVIEW OF SYSTEMS: CONSTITUTION: Negative for pain, fatigue, weight loss, or appetite loss. EENT: Negative for mouth soreness, antibiotics use, epistaxis, visual problems, neck or facial swelling, fever/chills, bleeding gums, or hearing loss. CV: Negative for edema, calf swelling, palpitations, or chest pain. RESPIRATORY: Negative for cough, SOB, hemoptysis, or wheezing. GI: Negative for nausea/vomiting, heartburn, vomiting blood, dysphasia, diarrhea, blood in stool, constipation, early satiety, PICA, vegetarian, poor nutrition, abdominal fullness, or abdominal pain. NEUROLOGICAL: Negative for numbness/tingling, dizziness, gait disturbance, headache, speech disturbance, tremor, hemiparesis/sensory loss, or change in mental status. MUSCULOSKELETAL: Negative for joint pain, joint swelling, or proximal muscle weakness. SKIN: Negative for hair loss, bruising, nail changes, rash, itching, pallor, or jaundice. ENDO/URO: Negative for hot flashes, cold or heat intolerance, urinary frequency, urinary hesitancy,menorrhagia, or hematuria. PSYCH: Negative for anxiety, depression, or other. PHYSICAL EXAM: BP 134/70 Pulse 75 Temp 36.8 C (98.2 F) (Temporal) Resp 16 Ht 177.8 cm (5' 10 ) Wt 79.5 kg (175 lb 3.2 oz) SpO2 97% BMI 25.14 kg/m GENERAL EXAM: Well developed/well nourished; in no acute distress. SKIN: Negative for lesions, rashes, or ulcers on the upper and lower extremities and face. Negativefor palpations/nodules, purpura, and ecchymosis. EENT: Negative for conjunctiva, mucosal pallor, JVD, LAP, thyromegaly, and glossitis. Supple & PERRL. EXTREMITIES: Negative for cyanosis, clubbing, and crepitus. LUNGS: Negative to auscultation, respiratory effort, and percussion. CARDIOVASCULAR: Regular rate. Negative for murmurs/S3S4/abnormal sounds, edema, and carotid bruits. ABDOMEN: Negative for masses, hernia, and spleen/liver abnormalities. RECTAL: Not done PSYCHIATRIC: Negative for mood/affect changes, recent & remote memory changes, and judgement and insight. NEUROLOGICAL: Alert, oriented x person, place, time. Cranial nerves 2-12 intact. Sensory for pain, light touch, vibration intact on all 4 extremities. Reflexes symmetric for biceps/brachioradial/patella/achilles. MUSCULOSKELETAL: Negative examination of joints, bones, muscles/tendons of all four extremities forinspection, percussion, and palpation. Negative for misallignment, asymmetry, crepitation, tenderness, mass, effusions. Range of motion normal. Negative for joint instability, laxity, dislocation. Gait steady. Negative for swelling, erythema, tenderness, soft tissue swelling, and atrophy. PATHOLOGY: 05/07/2023 Right inguinal lymph node biopsy ([facility]) Pathology pending LABS: Hemoglobin (g/dL) Date Value 05/13/2023 13.4 Hematocrit (%) Date Value 05/13/2023 42.3 WBC (k/uL) Date Value 05/13/2023 9.67 Platelet Count (k/uL) Date Value 05/13/2023 306 RADIOLOGY/OTHER STUDIES: 04/24/2023 PET scan ([facility]) Above the diaphragm the patient has significant metabolic activity with large axillary lymph nodes. In the abdomen and pelvis the patient has bulky lymphadenopathy with intense uptake including the retrocrural space, perirectal retroperitoneal area, and both internal and external iliac chains extending into the inguinal areas. Lymphadenopathy is bulky is in the iliac and inguinal areas. Findings are compatible with extensive lymphoma. ASSESSMENT/PLAN: 1. Non-Hodgkin lymphoma of lymph nodes of multiple regions, unspecified non- Hodgkin lymphoma type (HCC) - ICD9: 202.88, ICD10: C85.98 (primary diagnosis) The patient was initially diagnosed with stage III diffuse large B-cell lymphoma in 2001. Apparently his initial biopsy was of a right inguinal lymph node, which revealed elements of follicular lymphoma plus DLBCL. He received first- line therapy with R-CHOP x 6 cycles completed June 2002. He subsequently received radiation therapy to the chest Jul 2002. He had a complete response to initial therapy and did well. In March 2023 he presented with increasing bilateral inguinal adenopathy. PET scan 04/24/2023 revealeddiffuse areas of lymphadenopathy consistent with recurrent lymphoma. On 05/07/2023 he underwent incisional biopsy of a right inguinal lymph node at [facility]. Pathology currently pending. Most likely the patient has recurrent stage IIIb non-Hodgkin's lymphoma. We will check baseline labs today. We await final results of his lymph node pathology to discuss treatment options. The patient will return in 1 week for follow-up. He is aware that if the biopsy confirms a high-grade lymphoma aggressive chemotherapy will be indicated, possibly to include a stem cell transplant. 2. Acquired hypothyroidism - ICD9: 244.9, ICD10: E03.9 The patient developed post radiation hypothyroidism in 2001. Currently on Synthroid 125 mcg daily. Will monitor TFTs and adjust dosage accordingly. Michael Boykin MD CC: Dr. Jung, Dr. Emelia Gonzalez ([facility] [place]) documented in this encounterDayton Va Medical Center06-27-2023 NoteChief Complaint consultation for bilateral inguinal lymphadenopathy HPI Staff 67 year old male presents on consultation from Dr. Gonzalez for bilateral inguinal lymphadenopathy. Patient noted swollen nodes approximately 3 months ago with progressive enlargement. He reports some night sweats and approximately 10 pound recent weight loss. Patient with history of large B celllymphoma; this was diagnosed 2001. Treatment included chemotherapy and chest irradiation. PET scan completed 04/24 with lymphadenopathy of iliac and inguinal area, consistent with excessive lymphoma. History of Present Illness 67 yo male with h/o hypothyroidism, GERD, remote h/o diffuse B-cell lymphoma 20 years ago; noticed enlarging inguinal nodes over last several months; w/u revealed extensive pelvic and inguinal adenopathy bilaterally; no pain; some wt loss and night sweats. denies asa or NSAID use. Review of Systems PHQ Score Initial Depression Screen Score: 0 ROS - Provider Constitutional: no fever, no sweats, no weight loss. Eyes: no glasses, no blurred vision, no visual loss. ENMT: no dentures, no hoarseness, no swallowing difficulties, no hearing loss, no ear infection(s),no nose bleeds. Cardiovascular: normal blood pressure, no chest pain, regular heartbeat, no heart murmur. Respiratory: no shortness of breath, no cough, no asthma, no wheezing. Gastrointestinal: no nausea, no vomiting, no diarrhea, no constipation, no blood in stool, no change in bowel habits, no abdominal pain, no hepatitis. Genitourinary: no kidney stones, no urine infection, no dysuria. Musculoskeletal: no pain, no weakness. Skin: no changing moles, no rash, no skin lumps. Neurologic: no seizures, no epilepsy, no headache. Psychiatric: no emotional or psychiatric problem. Heme/Lymph: no bleeding problems, no anemia, no blood clots, no transfusions. Allergy/Immunologic: yes swollen lymph nodes/glands, no IV drug abuse. Other: Additional ROS info: Except as noted in the above Review of Systems and in the History of Present Illness, all other systems have been reviewed and are negative or noncontributory. Physical Exam Vitals & Measurements HR: 72(Peripheral) RR: 16 BP: 122/76 HT: 70 in HT: 177.8 cm WT: 80 kg WT: 176 lb BMI: 25.31 HEENT: normal conjunctiva, sclera clear, no scleral icterus, EOM intact, PERRLA, oral mucosa moist without lesions. Neck: trachea midline, no mass, symmetric, no thyromegaly or nodules, no adenopathy Respiratory: lungs CTA, respirations non labored. Cardiovascular: regular rate and rhythm, no murmur, no pedal edema or varicosities. Gastrointestinal: soft, non distended, no tenderness, no masses, no palpable hernias, diastasis recti no, no hepatosplenomegaly; normal bs Lymphatic: no cervical adenopathy, no axillary adenopathy, massive bilateral inguinal adenopathy, lymph nodes 6-7 cm in diameter, no skin changes, nontender. Musculoskeletal: normal gait, digits and nails without infection, nodes, cyanosis, clubbing. Skin: no rashes, no lesions, no ulcers, no subcutaneous nodules, induration. Psychiatric/Neuro: oriented to time, place, person, judgement normal, affect appropriate for age, insight intact, no focal deficits. Tests: labs reviewed, x-rays reviewed, review of old records completed, Discussed surgical options, risks, and possible complications with patient. Assessment/Plan 1. Inguinal adenopathy (R59.0: Localized enlarged lymph nodes) plan right inguinal lymph node biopsy under anesthesia for tissue diagnosis; will send fresh for lymphoma work up; informed consent obtained; Ancef 2 gms IV prior to OR SCDs Follow-up No qualifying data available Problem List/Past Medical History Ongoing BMI 25.0-25.9,adult Diffuse large B-cell lymphoma GERD (gastroesophageal reflux disease) Hypothyroidism Inguinal adenopathy Overweight Historical No qualifying data Procedure/Surgical History Thoracentesis (01/28/2002), Bronchoscopy (01/20/2002), Biopsy of lymph node. Medications Fish Oil levothyroxine 125 mcg (0.125 mg) Tab, 125 mcg= 1 tab(s), Oral, Daily Multi Vitamins oral tablet, 1 tab(s), Oral, Daily Allergies No Known Allergies No Known Medication Allergies Social History Alcohol - Denies Alcohol Use, 04/29/2023 Substance Abuse - Denies Substance Abuse, 04/29/2023 Tobacco Former smoker, quit more than 30 days ago Tobacco Use:. Never Smokeless Tobacco Use:. Cigarettes, 1per day. Started age 16.0 Years. Stopped age 46 Years., 04/29/2023 Family History Diabetes mellitus type 2: Mother. Heart disease: Mother. Hypertension: Mother. Primary malignant neoplasm of skin: Father.[facility] HospitalComment on above:Result Comment: Electronically Signed By: MIGUEL LOFTON, Elmer Mas\Date and Time Signed: 04/29/23 14:05 [id number] Miscellaneous Notes* Telephone Encounter - Darrell February - 08/04/2023 11:54 AM EDT Patient coming in Friday08/05/23 for follow up treatment. Please add labs orders. Thanks. Ceci Ramírez MA documented in this encounterDayton Va Medical CenterEvaluation + Plan note No data available for this section General Surgery [facility] Evaluation note* Diagnosis Non-Hodgkin's lymphoma, unspecified body region, unspecified non-Hodgkin lymphoma type (HCC) Hypothyroidism, unspecified type documented in this encounter [employer] Phone: [email or web address] note* Diagnosis Non-Hodgkin's lymphoma, unspecified body region, unspecified non-Hodgkin lymphoma type (HCC) Hypothyroidism, unspecified type [facility] [employer] Phone: [email or web address] note* Diagnosis Non-Hodgkin lymphoma of lymph nodes of multiple regions, unspecified non-Hodgkin lymphoma type (HCC)- Primary Acquired hypothyroidism Unspecified hypothyroidism documented in this encounter [facility] note* Diagnosis 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)- Primary documented in this encounter [facility] note* Diagnosis History of diffuse large B-cell lymphoma- Primary 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) 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) documented in this encounter [facility] note* Diagnosis 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) documented in this encounter [facility] note* Diagnosis Non-Hodgkin lymphoma of lymph nodes of multiple regions, unspecified non-Hodgkin lymphoma type (HCC)- Primary DE DIOS (dyspnea on exertion) Other dyspnea and respiratory abnormality documented in this encounter [facility] note* Diagnosis 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 documented in this encounter [facility] note* Diagnosis 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 documented in this encounter [facility] note* Diagnosis 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) documented in this encounter [facility] Discharge instructions No data available for this section General Surgery [facility] Progress note No data available for this section General Surgery [place] Reason for referral (narrative)* Outpatient Procedure (Routine) - Pending Review Specialty Diagnoses / Procedures Referred By Sergio t Referred To [facility] Diagnoses Non-Hodgkin lymphoma of lymph nodes of multiple regions, unspecified non-Hodgkin lymphoma type (HCC) DE DIOS (dyspnea on exertion) Procedures ECHO ECHO [facility] R-T 2D W/WOM-MODE COMPL SPEC&COLR D Michael Boykin MD [address] [place] [address] [place] [address] [facility] [address] [place] [address] Referral ID Status Reason Start Date Expiration Date Visits Requested Visits Authorized [id number] Pending Review Auto-Generat ed Referral 05/19/2023 05/18/2024 1 1 [facility] Assessments Diagnosis Non-Hodgkin's lymphoma, unspecified body region, unspecified non-Hodgkin lymphoma type (HCC) Hypothyroidism, unspecified type Encounter for screening for lung cancer Advance Directives No Advanced Directives Records FoundDocuments on File Type Date 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 Advance Directives and Living Will Power of Steel Inspector Documents on File Type Date 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 ACP-Advance Directive ACP-Power of Steel Inspector Summary Purpose Family History No Family History Records FoundNo Family History Records FoundNo Family History Records Found Reason for Referral Specialty Diagnoses / Procedures Referred By Sergio t Referred To Contact Diagnoses 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) Procedures CONSULT TO HEMATOLOGY/ONCOLOGY OFFICE/OUTPATIENT [facility] 60-74 MINUTES Michael Boykin MD [address] [place] [address] [place] [address] Referral ID Status Reason Start Date Expiration Date Visits Requested Visits Authorized [id number] Authorized PCP Requested Referral 05/22/2023 05/21/2024 1 1 Medications Administered Section Inactive Administered Medications - up to 3 most recent administrations Medication Order MAR Action Action Date Dose Rate Site acetaminophen 650 mg tab(s) (TYLENOL) 650 mg, ORAL, ONCE, 1 dose, On Fri06/10/23 at 0930, Give 30 minutes prior to infusion. No more than 4000 mg of acetaminophen should be given per day (FROM ALL SOURCES), If ordered PRN for pain, patient/guardian may elect to receive this medication for higher pain levels INSTEAD of the opioid, if preferred: N/A Given 06/10/2023 9:40 AM EDT 650 mg bendamustine 179.1 mg in NaCl 0.9% 547.164 mL (BELRAPZO) 179.1 mg (90 mg/m2 1.99 m2 Treatment Plan BSA from Recorded weight), INTRAVENOUS, Administer over 30 Minutes, ONCE, 1 dose, On Fri06/10/23 at 1000, EXP:06/10/23 1630 RT Hazardous Chemotherapy Drug: Use appropriate PPE. Antineoplastic Irritant. Refrigerate. Product dispensed: BELRAPZO New Bag/Syringe/Bottle 06/10/2023 2:15 PM EDT 179.1 mg dexAMETHasone 10 mg/NS 50 mL (PYXIS) 10 mg ivpb (DECADRON) 10 mg, INTRAVENOUS, ONCE, 1 dose, On Fri06/10/23 at 0930, Refrigerate. New Bag/Syringe/Bottle 06/10/2023 9:43 AM EDT 10 mg diphenhydrAMINE 50 mg (BENADRYL) 50 mg, ORAL, ONCE, 1 dose, On Fri06/10/23 at 0930, Give 30 minutes prior to infusion. Given 06/10/2023 9:40 AM EDT 50 mg palonosetron 0.25 mg injection (ALOXI) 0.25 mg, INTRAVENOUS, ONCE, 1 dose, On Fri06/10/23 at 0930, Flush IV line with NS prior to and following administration. Given 06/10/2023 9:41 AM EDT 0.25 mg riTUXimab-pvvr 700 mg in NaCl 0.9% 610 mL (RUXIENCE) 700 mg (rounded from 746.25 mg = 375 mg/m2 1.99 m2 Treatment Plan BSA from Recorded weight), INTRAVENOUS, ONCE, 1 dose, On Fri06/10/23 at 1000, EXP: 06/10/23 1800 RT Infuse at rate of 50mg/hr. If no hypotension, increase rate every 30 minutes by 50mg/hr to a maximum rate of 400mg/hr. Refrigerate. Rate/Dose Change 06/10/2023 2:04 PM EDT 349 mL/hr Rate/Dose Change 06/10/2023 1:31 PM EDT 305 mL/ hr Rate/Dose Change 06/10/2023 1:01 PM EDT 261 mL/ hr Inactive Administered Medications - up to 3 most recent administrations Medication Order MAR Action Action Date Dose Rate Site bendamustine 179.1 mg in NaCl 0.9% 547.164 mL (BELRAPZO) 179.1 mg (90 mg/m2 1.99 m2 Treatment Plan BSA from Recorded weight), INTRAVENOUS, Administer over 30 Minutes, ONCE, 1 dose, On Fri06/11/23 at 0930, EXP: 06/11/23 1215 RT Hazardous Chemotherapy Drug: Use appropriate PPE. Antineoplastic Irritant. Refrigerate. Product dispensed: BELRAPZO New Bag/Syringe/Bottle 06/11/2023 9:51 AM EDT 179.1 mg dexAMETHasone 10 mg/NS 50 mL (PYXIS) 10 mg ivpb (DECADRON) 10 mg, INTRAVENOUS, ONCE, 1 dose, On Fri06/11/23 at 30, Refrigerate. New Bag/Syringe/Bottle 06/11/2023 9:21 AM EDT 10 mg Inactive Administered Medications - up to 3 most recent administrations Medication Order MAR Action Action Date Dose Rate Site acetaminophen 650 mg tab(s) (TYLENOL) 650 mg, ORAL, ONCE, 1 dose, On Fri07/08/23 at 0930, Give 30 minutes prior to infusion. No more than 4000 mg of acetaminophen should be given per day (FROM ALL SOURCES), If ordered PRN for pain, patient/guardian may elect to receive this medication for higher pain levels INSTEAD of the opioid, if preferred: N/A Given 07/08/2023 9:38 AM EDT 650 mg bendamustine 175.5 mg in NaCl 0.9% 547.02 mL (BELRAPZO) 175.5 mg (90 mg/m2 1.95 m2 Treatment Plan BSA from Recorded weight), INTRAVENOUS, Administer over 30 Minutes, ONCE, 1 dose, On Fri07/08/23 at 0930, EXP:1450 Hazardous Chemotherapy Drug: Use appropriate PPE. Antineoplastic Irritant. Refrigerate. Product dispensed: BELRAPZO New Bag/Syringe/Bottle 07/08/2023 12:54 PM EDT 175.5 mg dexAMETHasone 10 mg in NaCl 0.9% 50 mL (DECADRON) 10 mg, INTRAVENOUS, ONCE, 1 dose, On Fri07/08/23 at 0930, Refrigerate. New Bag/Syringe/Bottle 07/08/2023 9:35 AM EDT 10 mg diphenhydrAMINE 50 mg (BENADRYL) 50 mg, ORAL, ONCE, 1 dose, On Fri07/08/23 at 0930, Give 30 minutes prior to infusion. Given 07/08/2023 9:35 AM EDT 50 mg palonosetron 0.25 mg injection (ALOXI) 0.25 mg, INTRAVENOUS, ONCE, 1 dose, On Fri07/08/23 at 0930, Flush IV line with NS prior to and following administration. Given 07/08/2023 9:35 AM EDT 0.25 mg riTUXimab-pvvr 700 mg in NaCl 0.9% 610 mL (RUXIENCE) 700 mg (rounded from 731.25 mg = 375 mg/m2 1.95 m2 Treatment Plan BSA from Recorded weight), INTRAVENOUS, ONCE, 1 dose, On Fri07/08/23 at 09, EXP:_92907/09/23 Infuse at rate of 100mg/hr. If no hypotension, increase rate every 30 minutes by 100mg/hr to a maximum rate of 400mg/hr. Refrigerate. Rate/Dose Change 07/08/2023 11:42 AM EDT Rate/Dose Change 07/08/2023 11:08 AM EDT Rate/Dose Change 07/08/2023 10:40 AM EDT Inactive Administered Medications - up to 3 most recent administrations Medication Order MAR Action Action Date Dose Rate Site bendamustine 175.5 mg in NaCl 0.9% 547.02 mL (BELRAPZO) 175.5 mg (90 mg/m2 1.95 m2 Treatment Plan BSA from Recorded weight), INTRAVENOUS, Administer over 30 Minutes, ONCE, 1 dose, On Fri07/09/23 at 0930, EXP:_122907/09/23 Hazardous Chemotherapy Drug: Use appropriate PPE. Antineoplastic Irritant. Refrigerate. Product dispensed: BELRAPZO New Bag/Syringe/Bottle 07/09/2023 9:59 AM EDT 175.5 mg dexAMETHasone 10 mg in NaCl 0.9% 50 mL (DECADRON) 10 mg, INTRAVENOUS, ONCE, 1 dose, On Fri07/09/23 at 0930, Refrigerate. New Bag/Syringe/Bottle 07/09/2023 9:33 AM EDT 10 mg Inactive Administered Medications - up to 3 most recent administrations Medication Order MAR Action Action Date Dose Rate Site bendamustine 180 mg in NaCl 0.9% 547.2 mL 180 mg (90 mg/m2 2 m2 Treatment Plan BSA from Recorded weight), INTRAVENOUS, Administer over 30 Minutes, ONCE, 1 dose, On Fri09/03/23 at 0930, EXP: 91609/04/23 Hazardous Chemotherapy Drug: Use appropriate PPE. Antineoplastic Irritant. Refrigerate. New Bag/Syringe/Bottle 09/03/2023 9:55 AM EDT 180 mg dexAMETHasone 10 mg in NaCl 0.9% 50 mL (DECADRON) 10 mg, INTRAVENOUS, ONCE, 1 dose, On Fri09/03/23 at 0930, Refrigerate. New Bag/Syringe/Bottle 09/03/2023 9:28 AM EDT 10 mg Inactive Administered Medications - up to 3 most recent administrations Medication Order MAR Action Action Date Dose Rate Site acetaminophen 650 mg tab(s) (TYLENOL) 650 mg, ORAL, ONCE, 1 dose, On Fri09/30/23 at 1000, Give 30 minutes prior to infusion. No more than 4000 mg of acetaminophen should be given per day (FROM ALL SOURCES), If ordered PRN for pain, patient/guardian may elect to receive this medication for higher pain levels INSTEAD of the opioid, if preferred: N/A Given 09/30/2023 9:50 AM EST 650 mg bendamustine 183.6 mg in NaCl 0.9% 547.344 mL 183.6 mg (90 mg/m2 2.04 m2 Treatment Plan BSA from Recorded weight), INTRAVENOUS, Administer over 30 Minutes, ONCE, 1 dose, On Fri09/30/23 at 1000, EXP: 1300 09/30/23 RT Hazardous Chemotherapy Drug: Use appropriate PPE. Antineoplastic Irritant. Refrigerate. New Bag/Syringe/Bottl e 09/30/2023 10:25 AM EST 183.6 mg dexAMETHasone 10 mg in NaCl 0.9% 50 mL (DECADRON) 10 mg, INTRAVENOUS, ONCE, 1 dose, On Fri09/30/23 at 1000, Refrigerate. New Bag/Syringe/Bottl e 09/30/2023 9:48 AM EST 10 mg diphenhydrAMINE 50 mg (BENADRYL) 50 mg, ORAL, ONCE, 1 dose, On Fri09/30/23 at 1000, Give 30 minutes prior to infusion. Given 09/30/2023 9:48 AM EST 50 mg palonosetron 0.25 mg injection (ALOXI) 0.25 mg, INTRAVENOUS, ONCE, 1 dose, On Fri09/30/23 at 1000, Flush IV line with NS prior to and following administration. Given 09/30/2023 9:48 AM EST 0.25 mg riTUXimab - hyaluronidase 1,400 mg injection (RITUXAN HYCELA) 1,400 mg, SUBCUTANEOUS, Administer over 5 Minutes, ONCE, 1 dose, On Fri09/30/23 at 1000, Approx Total Volume: 11.7 mL EXP: 1800 10/01/23 Inject subcutaneously in abdomen over 5 minutes. Observe for at least 15 minutes after administration. Given 09/30/2023 10:16 AM EST 1,400 mg Abdomen, RLQ Inactive Administered Medications - up to 3 most recent administrations Medication Order MAR Action Action Date Dose Rate Site bendamustine 183.6 mg in NaCl 0.9% 547.344 mL 183.6 mg (90 mg/m2 2.04 m2 Treatment Plan BSA from Recorded weight), INTRAVENOUS, Administer over 30 Minutes, ONCE, 1 dose, On Fri10/01/23 at 1330, EXP: 1600 10/01/23 RT Hazardous Chemotherapy Drug: Use appropriate PPE. Antineoplastic Irritant. Refrigerate. New Bag/Syringe/Bottle 10/01/2023 1:39 PM EST 183.6 mg dexAMETHasone 10 mg in NaCl 0.9% 50 mL (DECADRON) 10 mg, INTRAVENOUS, ONCE, 1 dose, On Fri10/01/23 at 1330, Refrigerate. New Bag/Syringe/Bottle 10/01/2023 1:15 PM EST 10 mg Additional Source Comments (unrecognized sect ion and content) No Status Records FoundNo Status Records FoundNo Status Records Found INFORMATION SOURCE (unrecogn ized section and content) DATE CREATED AUTHOR 04/11/2023 Juliane donahue DATE CREATED AUTHOR AUTHOR'S ORGANIZ ATION 12/01/2023 [facility] DATE CREATED AUTHOR AUTHOR'S ORGANIZ ATION 12/16/2023 Farhad Verde [facility] Patient Care team informatio n (unrecognized section and content) Pharmacology Teacher Relationship Specialty Start Date End Date Cleo Feliz, ASSEMBLER CAMPER.TENSIONING MACHINE OPERATOR [address] [place] [address] Nurse Practitioner Hematology/Oncology 06/05/23 Michael Boykin MD [address] [place] [address] Physician Hematology/Oncology 06/05/23 Ivania Jackman, RN [address] [facility] [place] [address] Specialty Tree Killer Hematology/Oncology 06/05/23 Pharmacology Teacher Relationship Specialty Start Date End Date Cleo Feliz, ASSEMBLER CAMPER.TENSIONING MACHINE OPERATOR [address] [place] [address] Nurse Practitioner Hematology/Oncology 06/05/23 Michael Boykin MD [address] [place] [address] Physician Hematology/Oncology 06/05/23 Ivania Jackman, STEVE [address] [facility] [place] [address] Specialty Tree Killer Hematology/Oncology 06/05/23 Pharmacology Teacher Relationship Specialty Start Date End Date Cleo Feliz, ASSEMBLER CAMPER.TENSIONING MACHINE OPERATOR [address] [facility] [place] [address] Nurse Practitioner Hematology/Oncology 06/05/23 Michael Boykin MD [address] [place] [address] Physician Hematology/Oncology 06/05/23 Ivania Jackman, RN [address] [facility] [place] [address] Specialty Tree Killer Hematology/Oncology 06/05/23 Pharmacology Teacher Relationship Specialty Start Date End Date Cleo Feliz, ASSEMBLER CAMPER.TENSIONING MACHINE OPERATOR [address] [facility] [address] [place], [place] [id number] Nurse Practitioner Hematology/Oncology 06/05/23 Michael Boykin MD [address] [facility] [place] [address] Physician Hematology/Oncology 06/05/23 Ivania Jackman, RN [address] [facility] [place] [address] Specialty Tree Killer Hematology/Oncology 06/05/23 Pharmacology Teacher Relationship Specialty Start Date End Date Cleo Feliz, ASSEMBLER CAMPER.TENSIONING MACHINE OPERATOR [address] [facility] [place] [address] Nurse Practitioner Hematology/Oncology 06/05/23 Michael Boykin MD [address] [facility] [place] [address] Physician Hematology/Oncology 06/05/23 Ivania Jackman, RN [address] [facility] [place] [address] Specialty Tree Killer Hematology/Oncology 06/05/23 Pharmacology Teacher Relationship Specialty Start Date End Date Cleo Feliz, ASSEMBLER CAMPER.TENSIONING MACHINE OPERATOR [address] [facility] [place] [address] Nurse Practitioner Hematology/Oncology 06/05/23 Michael Boykin MD [address] [facility] [place] [address] Physician Hematology/Oncology 06/05/23 Ivania Jackman, RN [address] [facility] [place] [address] Specialty Tree Killer Hematology/Oncology 06/05/23 Pharmacology Teacher Relationship Specialty Start Date End Date Cleo Feliz, ASSEMBLER CAMPER.TENSIONING MACHINE OPERATOR [address] [facility] [place] [address] Nurse Practitioner Hematology/Oncology 06/05/23 Michael Boykin MD [address] [facility] [place] [address] Physician Hematology/Oncology 06/05/23 Ivania Jackman, STEVE [address] [facility] [place] [address] Specialty Tree Killer Hematology/Oncology 06/05/23 Pharmacology Teacher Relationship Specialty Start Date End Date Cleo Feliz, ASSEMBLER CAMPER.TENSIONING MACHINE OPERATOR [address] [facility] [place] [address] Nurse Practitioner Hematology/Oncology 06/05/23 Michael Boykin MD [address] [facility] [place] [address] Physician Hematology/Oncology 06/05/23 Ivania Jackman, STEVE [address] [facility] [place] [address] Specialty Tree Killer Hematology/Oncology 06/05/23 Pharmacology Teacher Relationship Specialty Start Date End Date Cleo Feliz, ASSEMBLER CAMPER.TENSIONING MACHINE OPERATOR [address] [facility] [place] [address] Nurse Practitioner Hematology/Oncology 06/05/23 Michael Boykin MD [address] [facility] [place] [address] Physician Hematology/Oncology 06/05/23 Ivania Jackman, RN [address] [facility] [place] [address] Specialty Tree Killer Hematology/Oncology 06/05/23 Pharmacology Teacher Relationship Specialty Start Date End Date Cleo Feliz, ASSEMBLER CAMPER.TENSIONING MACHINE OPERATOR [address] [facility] [place] [address] Nurse Practitioner Hematology/Oncology 06/05/23 Michael Boykin MD [address] [facility] [address] [place] [address] Physician Hematology/Oncology 06/05/23 Ivania Jackman, STEVE [address] [facility] [address] [place] [address] Specialty Tree Killer Hematology/Oncology 06/05/23 Pharmacology Teacher Relationship Specialty Start Date End Date Cleo Feliz, ASSEMBLER CAMPER.TENSIONING MACHINE OPERATOR [address] [facility] [address] [place] [address] Nurse Practitioner Hematology/Oncology 06/05/23 Michael Boykin MD [address] [facility] [place] [address] Physician Hematology/Oncology 06/05/23 Ivania Jackman, RN [address] [facility] [address] [place] [address] Specialty Tree Killer Hematology/Oncology 06/05/23 Pharmacology Teacher Relationship Specialty Start Date End Date Cleo Feliz, ASSEMBLER CAMPER.TENSIONING MACHINE OPERATOR [address] [facility] [address] [place] [address] Nurse Practitioner Hematology/Oncology 06/05/23 Michael Boykin MD [address] [facility] [place] [address] Physician Hematology/Oncology 06/05/23 Ivania Jackman, RN [address] [facility] [place] [address] Specialty Tree Killer Hematology/Oncology 06/05/23 Pharmacology Teacher Relationship Specialty Start Date End Date Cleo Feliz, ASSEMBLER CAMPER.TENSIONING MACHINE OPERATOR [address] [facility] [place] [address] Nurse Practitioner Hematology/Oncology 06/05/23 Michael Boykin MD [address] [facility] [place] [address] Physician Hematology/Oncology 06/05/23 Ivania Jackman, STEVE [address] [facility] [address] [place] [address] Specialty Tree Killer Hematology/Oncology 06/05/23 Pharmacology Teacher Relationship Specialty Start Date End Date Cleo Feliz, ASSEMBLER CAMPER.TENSIONING MACHINE OPERATOR [address] [facility] [place] [address] Nurse Practitioner Hematology/Oncology 06/05/23 Michael Boykin MD [address] [facility] [place] [address] Physician Hematology/Oncology 06/05/23 Ivania Jackman, STEVE [address] [facility] [place] [address] Specialty Tree Killer Hematology/Oncology 06/05/23 Pharmacology Teacher Relationship Specialty Start Date End Date Cleo Feliz, ASSEMBLER CAMPER.TENSIONING MACHINE OPERATOR [address] [facility] [place] [address] Nurse Practitioner Hematology/Oncology 06/05/23 Michael Boykin MD [address] [facility] [place] [address] Physician Hematology/Oncology 06/05/23 Ivania Jackman, STEVE [address] [facility] [place] [address] Specialty Tree Killer Hematology/Oncology 06/05/23 Pharmacology Teacher Relationship Specialty Start Date End Date Cleo Feliz, ASSEMBLER CAMPER.TENSIONING MACHINE OPERATOR [address] [facility] [place] [address] Nurse Practitioner Hematology/Oncology 06/05/23 Michael Boykin MD [address] [facility] [address] Physician Hematology/Oncology 06/05/23 Ivania Jackman, STEVE [address] [facility] [place] [address] Specialty Tree Killer Hematology/Oncology 06/05/23 Pharmacology Teacher Relationship Specialty Start Date End Date Cleo Feliz, ASSEMBLER CAMPER.TENSIONING MACHINE OPERATOR [address] [facility] [address] Nurse Practitioner Hematology/Oncology 06/05/23 Michael Boykin MD [address] [facility] [place] [address] Physician Hematology/Oncology 06/05/23 Ivania Jackman, RN [address] [facility] [place] [address] Specialty Tree Killer Hematology/Oncology 06/05/23 Pharmacology Teacher Relationship Specialty Start Date End Date Cleo Feliz, ASSEMBLER CAMPER.TENSIONING MACHINE OPERATOR [address] [facility] [place] [address] Nurse Practitioner Hematology/Oncology 06/05/23 Michael Boykin MD [address] [facility] [place] [address] Physician Hematology/Oncology 06/05/23 Ivania Jackman, STEVE [address] [facility] [place] [address] Specialty Tree Killer Hematology/Oncology 06/05/23 Pharmacology Teacher Relationship Specialty Start Date End Date Celo Feliz, ASSEMBLER CAMPER.TENSIONING MACHINE OPERATOR [address] [facility] [place] [address] Nurse Practitioner Hematology/Oncology 06/05/23 Michael Boykin MD [address] [facility] [place] [address] Physician Hematology/Oncology 06/05/23 Ivania Jackman, STEVE [address] [facility] [place] [address] Specialty Tree Killer Hematology/Oncology 06/05/23 Source Comments (unrecognize d section and content) In the event this informatio n is protected by the Federal Confidentiality of Alcohol and Drug Abuse Patient Records regulations: The Federal rules restrict any use of the information to criminally investigate or prosecute any alcohol or drug abuse patient.[facility] the event this information is protected by the Federal Confidentiality of Alcohol and Drug Abuse Patient Records regulations: The Federal rules restrict any use of the information to criminally investigate or prosecute any alcohol or drug abuse patient.[facility] the event this information is protected by the Federal Confidentiality of Alcohol and Drug Abuse Patient Records regulations: The Federal rules restrict any use of the information to criminally investigate or prosecute any alcohol or drug abuse patient.[facility] the event this information is protected by the Federal Confidentiality of Alcohol and Drug Abuse Patient Records regulations: The Federal rules restrict any use of the information to criminally investigate or prosecute any alcohol or drug abuse patient.[facility] Center[facility] the event this information is protected by the Federal Confidentiality of Alcohol and Drug Abuse Patient Records regulations: The Federal rules restrict any use of the information to criminally investigate or prosecute any alcohol or drug abuse patient.[facility] the event this information is protected by the Federal Confidentiality of Alcohol and Drug Abuse Patient Records regulations: The Federal rules restrict any use of the information to criminally investigate or prosecute any alcohol or drug abuse patient.[facility] Center[facility] the event this information is protected by the Federal Confidentiality of Alcohol and Drug Abuse Patient Records regulations: The Federal rules restrict any use of the information to criminally investigate or prosecute any alcohol or drug abuse patient.[facility] Center[facility] the event this information is protected by the Federal Confidentiality of Alcohol and Drug Abuse Patient Records regulations: The Federal rules restrict any use of the information to criminally investigate or prosecute any alcohol or drug abuse patient.[facility] Center[facility] the event this information is protected by the Federal Confidentiality of Alcohol and Drug Abuse Patient Records regulations: The Federal rules restrict any use of the information to criminally investigate or prosecute any alcohol or drug abuse patient.[facility] CenterIn the event this information is protected by the Federal Confidentiality of Alcohol and Drug Abuse Patient Records regulations: The Federal rules restrict any use of the information to criminally investigate or prosecute any alcohol or drug abuse patient.[facility] Center[facility] the event this information is protected by the Federal Confidentiality of Alcohol and Drug Abuse Patient Records regulations: The Federal rules restrict any use of the information to criminally investigate or prosecute any alcohol or drug abuse patient.[facility] CenterIn the event this information is protected by the Federal Confidentiality of Alcohol and Drug Abuse Patient Records regulations: The Federal rules restrict any use of the information to criminally investigate or prosecute any alcohol or drug abuse patient.[facility] Center[facility] the event this information is protected by the Federal Confidentiality of Alcohol and Drug Abuse Patient Records regulations: The Federal rules restrict any use of the information to criminally investigate or prosecute any alcohol or drug abuse patient.[facility] Center[facility] the event this information is protected by the Federal Confidentiality of Alcohol and Drug Abuse Patient Records regulations: The Federal rules restrict any use of the information to criminally investigate or prosecute any alcohol or drug abuse patient.[facility] CenterIn the event this information is protected by the Federal Confidentiality of Alcohol and Drug Abuse Patient Records regulations: The Federal rules restrict any use of the information to criminally investigate or prosecute any alcohol or drug abuse patient.[facility] CenterIn the event this information is protected by the Federal Confidentiality of Alcohol and Drug Abuse Patient Records regulations: The Federal rules restrict any use of the information to criminally investigate or prosecute any alcohol or drug abuse patient.[facility] CenterIn the event this information is protected by the Federal Confidentiality of Alcohol and Drug Abuse Patient Records regulations: The Federal rules restrict any use of the information to criminally investigate or prosecute any alcohol or drug abuse patient.[facility] CenterIn the event this information is protected by the Federal Confidentiality of Alcohol and Drug Abuse Patient Records regulations: The Federal rules restrict any use of the information to criminally investigate or prosecute any alcohol or drug abuse patient.[facility] CenterIn the event this information is protected by the Federal Confidentiality of Alcohol and Drug Abuse Patient Records regulations: The Federal rules restrict any use of the information to criminally investigate or prosecute any alcohol or drug abuse patient.[facility] CenterIn the event this information is protected by the Federal Confidentiality of Alcohol and Drug Abuse Patient Records regulations: The Federal rules restrict any use of the information to criminally investigate or prosecute any alcohol or drug abuse patient.[facility] CenterIn the event this information is protected by the Federal Confidentiality of Alcohol and Drug Abuse Patient Records regulations: The Federal rules restrict any use of the information to criminally investigate or prosecute any alcohol or drug abuse patient.[facility] CenterIn the event this information is protected by the Federal Confidentiality of Alcohol and Drug Abuse Patient Records regulations: The Federal rules restrict any use of the information to criminally investigate or prosecute any alcohol or drug abuse patient.[facility] CenterIn the event this information is protected by the Federal Confidentiality of Alcohol and Drug Abuse Patient Records regulations: The Federal rules restrict any use of the information to criminally investigate or prosecute any alcohol or drug abuse patient.[facility] CenterIn the event this information is protected by the Federal Confidentiality of Alcohol and Drug Abuse Patient Records regulations: The Federal rules restrict any use of the information to criminally investigate or prosecute any alcohol or drug abuse patient.[facility] CenterIn the event this information is protected by the Federal Confidentiality of Alcohol and Drug Abuse Patient Records regulations: The Federal rules restrict any use of the information to criminally investigate or prosecute any alcohol or drug abuse patient.[facility] CenterIn the event this information is protected by the Federal Confidentiality of Alcohol and Drug Abuse Patient Records regulations: The Federal rules restrict any use of the information to criminally investigate or prosecute any alcohol or drug abuse patient.[facility] CenterIn the event this information is protected by the Federal Confidentiality of Alcohol and Drug Abuse Patient Records regulations: The Federal rules restrict any use of the information to criminally investigate or prosecute any alcohol or drug abuse patient.[facility] CenterIn the event this information is protected by the Federal Confidentiality of Alcohol and Drug Abuse Patient Records regulations: The Federal rules restrict any use of the information to criminally investigate or prosecute any alcohol or drug abuse patient.[facility] CenterIn the event this information is protected by the Federal Confidentiality of Alcohol and Drug Abuse Patient Records regulations: The Federal rules restrict any use of the information to criminally investigate or prosecute any alcohol or drug abuse patient.[facility] CenterIn the event this information is protected by the Federal Confidentiality of Alcohol and Drug Abuse Patient Records regulations: The Federal rules restrict any use of the information to criminally investigate or prosecute any alcohol or drug abuse patient.[facility] CenterIn the event this information is protected by the Federal Confidentiality of Alcohol and Drug Abuse Patient Records regulations: The Federal rules restrict any use of the information to criminally investigate or prosecute any alcohol or drug abuse patient.[facility] CenterIn the event this information is protected by the Federal Confidentiality of Alcohol and Drug Abuse Patient Records regulations: The Federal rules restrict any use of the information to criminally investigate or prosecute any alcohol or drug abuse patient.[facility] CenterIn the event this information is protected by the Federal Confidentiality of Alcohol and Drug Abuse Patient Records regulations: The Federal rules restrict any use of the information to criminally investigate or prosecute any alcohol or drug abuse patient.[facility] CenterIn the event this information is protected by the Federal Confidentiality of Alcohol and Drug Abuse Patient Records regulations: The Federal rules restrict any use of the information to criminally investigate or prosecute any alcohol or drug abuse patient.[facility] CenterIn the event this information is protected by the Federal Confidentiality of Alcohol and Drug Abuse Patient Records regulations: The Federal rules restrict any use of the information to criminally investigate or prosecute any alcohol or drug abuse patient.[facility] Reason for Visit (unrecogniz ed section and content) Reason Comments Lymphoma New patient consulta tion Reason Comments 2nd opinion path Reason Comments Care Coordination Pathology Update Reason Comments Lymphoma Reason Comments Consult Specialty Diagnoses / Procedures Referred By Contac t Referred To Contact Diagnoses 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) Procedures CONSULT TO HEMATOLOGY/ONCOLOGY OFFICE/OUTPATIENT NEW [facility] MDM 60-74 MINUTES Michael Boykin MD [address] [place] [address] [place] [address] Referral ID Status Reason Start Date Expiration Date V isits Requested Visits Authorized [id number] Closed PCP Requested Referral 05/22/2023 05/21/2024 1 1 Reason Comments Tree Killer - Other Reason Comments Orders Reason Comments Care Coordination Antiemetics Reason Comments Lymphoma 2 week follow up Reason Comments Tree Killer - Other Uric Acid Resul ts Reason Comments Tree Killer - Other Medication Prob carmencita Reason Comments Care Coordination Pathology Results Specialty Diagnoses / Procedures Referred By Contac t Referred To Contact Diagnoses 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) Niesha Galdamez MD [address] [place] [address] [address] [place] [address] [address] [place] [address] Referral ID Status Reason Start Date Expiration Date V isits Requested Visits Authorized [id number] Authorized 05/31/2023 08/29/2023 99 99 Reason Comments Care Coordination C1D1 treatment follo w up call Reason Comments Appointment Reason Comments Research IRB [id number] Informed Consent Specialty Diagnoses / Procedures Referred By [facility] Referred To Contact Hematology / HEMATOLOGY/ONCOLOGY Diagnoses lab/port Procedures LAB/PORT Michael Boykin MD [address] [place] [address] [facility] [address] [place] [address] Referral ID Status Reason Start Date Expiration Date V isits Requested Visits Authorized [id number] Authorized 06/17/2023 11/02/2023 99 99 Reason Comments Care Coordination Rash Reason Comments Care Coordination Rash Reason Comments Care Coordination Rash Update Reason Comments Lymphoma Treatment visit/port draw Reason Comments Lab Orders Reason Comments Lymphoma Treatment visit/port draw FOR RECORDS PERTAINING TO PATIENTS WHO ARE OR HAVE BEEN ENROLLED IN A CHEMICAL DEPENDENCY/SUBSTANCEABUSE PROGRAM, SOME INFORMATION MAY BE OMITTED. This clinical summary was aggregated from multiple sources. Caution should be exercised in using it in the provision of clinical care. This summary normalizes information from multiple sources, and as a consequence, information in this document may materially change the coding, format and clinical context of patient data. In addition, data may be omitted in some cases. CLINICAL DECISIONS SHOULD BE BASED ON THE PRIMARY CLINICAL RECORDS. [facility] [employer] [facility]. provides no warranty or guarantee of the accuracy or completeness of information in this document.
[2023-12-17] MEDS: LACTATED RINGER'S SOLUTION 1,000 ML 50 ML IV (09:57)
[2023-12-17] MEDS: CEFAZOLIN SODIUM/DEXTROSE,ISO 2 GM/50 ML PIGGYBACK IV (11:28)
[2023-12-17] MEDS: BUPIVACAINE LIPOSOME/PF 266 MG/13.3 ML VIAL 13.3 MG INJ (12:13)
[2023-12-17] MEDS: BUPIVACAINE HCL 0.25% PF 25 MG/10 ML VIAL INJ (12:13)
[2023-12-17] MEDS: HEPARIN SODIUM (PORCINE) PF LOCK FLUSH 500 UNIT/5 ML SYRINGE IV (13:40)
== END 2023-12-17 13:43 | disposition home or self-care (01) ==
PROVIDERS: Visit Provider Surgery
PROC: (CPT 38531; principal; 2023-12-17 10:20)
DX: C85.15 Unspecified B-cell lymphoma, lymph nodes of inguinal region and lower limb (principal); R59.0 Localized enlarged lymph nodes; R19.09 Other intra-abdominal and pelvic swelling, mass and lump; K21.9 Gastro-esophageal reflux disease without esophagitis; E03.9 Hypothyroidism, unspecified; E66.3 Overweight; Z68.26 Body mass index [BMI] 26.0-26.9, adult; Z87.891 Personal history of nicotine dependence
CPT/HCPCS: 38531; 36415; 88305; 88333; 88341; 88342; 88360; 99999; J0665; J0690; J1100; J1642; J1885; J2405; J2704; J3010

== ENCOUNTER 2024-03-13 12:25 | Emergency (ER) | payer MEDICARE, SELFPAY ==
[2024-03-13 12:34] VITALS: BP 155/90; PULSE 87; TEMP 36.6; O2SAT 98; BMI 26.0
--- OUTSIDE RECORDS SUMMARY | 2024-03-13 12:38 | XMS_ITS | CCD ---
Author Organization [facility] Care Team Providers Care Blueprint Maker Name Role Phone Unavailable Primary Care Provider Unavailgaurang e EMELIA GONZALEZ R Referring Unavailable Unavailable Primary Care Provider UnavailEMELIA Velazquez Primary Care Physician Unavailable Primary Care Provider UnavailCleo Gutierrez APRN.CNP Unavailable Michael Boykin MD Unavailable [phone] Augustina WILSON, Ivania Unavailable [phone] Augustina RN, Ivania Unavailable MIGUEL, Chiquita R Attending Unavailable NILL, Chiquita R Attending Unavailable NILL, Chiquita R Attending Unavailable NILL, Chiquita Martins Attending Unavailable EMELIA GONZALEZ Referring Unavailable NILL, Chiquita R Attending Unavailable NILL, Chiquita R Attending Unavailable NILL, Chiquita R Attending Unavailable Michael Boykin Referring Unavailable Chiquita RIVERA Attending Unavailable Dorcas Bolanos MD Unavailable Niesha Galdamez MD Unavailable Michael Boykin MD Unavailable Emelia Gonzalez MD Primary Care Provider SELF, SELF Referring Unavailable DORCAS BOLANOS Attending Unavailable Krystyna Miller Unavailable [phone] MICHAEL BOYKIN Referring Unavailable MICHAEL BOYKIN Referring Unavailable MICAHEL BOYKIN Referring Unavailable MICHAEL BOYKIN Attending Unavailable MICHAEL BOYKIN Referring Unavailable MICHAEL BOYKIN Attending Unavailable EMELIA MICHAUD Primary Care Unavailable WINTERWALKERNIESHA Referring Unavailable WINTERWALKERNIESHA Attending Unavailable MICHAEL BOYKIN Referring Unavailable CLEO FELIZ Attending Unavailable MICHAEL BOYKIN Referring Unavailable WINTER NIESHA Attending Unavailable BOYKIN, MICHAEL Attending Unavailable BOYKIN, MICHAEL Referring Unavailable BOYKIN, MICHAEL Referring Unavailable BOYKIN, MICHAEL Attending Unavailable BOYKIN, MICHAEL Referring Unavailable WINTER, NIESHA Attending Unavailable BOYKIN, MICHAEL Attending Unavailable BOYKIN, MICHAEL Referring Unavailable BOYKIN, MICHAEL Attending Unavailable BOYKIN, MICHAEL Referring Unavailable OBYKIN, MICHAEL Referring Unavailable BOYKIN, MICHAEL Referring Unavailable BOYKIN, MICHAEL Referring Unavailable BOYKIN, MICHAEL Referring Unavailable BOYKIN, MICHAEL Referring Unavailable BOYKIN, MICHAEL Referring Unavailable BOYKIN, MICHAEL Attending Unavailable WINTER, NIESHA Referring Unavailable WINTER, NIESHA Referring Unavailable Viviana VARELA Attending Unavailable BOYKIN, MICHAEL Referring Unavailable WINTER, NIESHA Referring Unavailable WINTER, NIESHA Attending Unavailable WINTER, NIESHA Attending Unavailable WINTER, NIESHA Referring Unavailable BOYKIN, MICHAEL Referring Unavailable BOYKIN, MICHAEL Referring Unavailable BOYKIN, MICHAEL Referring Unavailable BOYKIN, MICHAEL Referring Unavailable BOYKIN, MICHAEL Referring Unavailable BOYKIN, MICHAEL Referring Unavailable BOYKIN, MICHAEL Referring Unavailable BOYKIN, MICHAEL Referring Unavailable BOYKIN, MICHAEL Attending Unavailable BOYKIN, MICHAEL Referring Unavailable BOYKIN, MICHAEL Attending Unavailable BOYKIN, MICHAEL Referring Unavailable BOYKIN, MICHAEL Referring Unavailable TRAY, CLEO Referring Unavailable AL NORI, ADNAN R Primary Care Unavailable BOYKIN, MICHAEL Referring Unavailable BOYKIN, MICHAEL Attending Unavailable BOYKIN, MICHAEL Referring Unavailable BOYKIN, MICHAEL Referring Unavailable AL NORI, ADNAN R Referring Unavailable ASHUTOSH, MICHAEL Attending Unavailable CHIQUITA DAVIS Admitting Unavailable CHIQUITA DAVIS Attending Unavailable AL NORI, ADNAN R Primary Care Unavailable BOYKIN, MICHAEL Referring Unavailable TRAY, CLEO Attending Unavailable BOYKIN, MICHAEL Referring Unavailable BOYKIN, MICHAEL Referring Unavailable Allergies Allergy Classification Reported Allergen(s) Allergy Type Date of Onset Reaction(s) Facility (20 sources) Allopurinol; Translations: [allopurinol] Drug Allergy 3 Rash [facility] (1 source) No Known Medication Allergies; Translations: [No Known Medication Allergies] Propensity to adverse reactions (disorder) [facility] Repository Medications Current Medications Medication Drug Class(es) Dates Sig (Normalized) Sig (Original) collagen, hydrolysate, bovine, (COLLAGEN, HYDR, BOVINE,, BULK,) 100 % powd (20 sources) take 1 dose by mouth once daily collagen, hydrolysate, bovine, (COLLAGEN, HYDR, BOVINE,, BULK,) 100 % powd Take 1 Dose by mouth once daily. 0 Active Comment on above: Take 1 Dose by mouth once daily. Fish Oils (7 sources) Start: 04-23-2023 Fish Oil Refill(s) 0, as directed Start Date: 04/23/23 Status: Ordered take 1 tablet by mouth once sherrie y FISH OIL Take 1 tablet by mouth daily. 0 Active KRILL OIL ORAL (20 sources) take 1 dose by mouth once daily KRILL OIL ORAL Take 1 Dose by mouth once daily. 0 Active KRILL OIL ORAL T sally by mouth. 0 Active Comment on above: Take by mouth. Take 1 Dose by mouth once daily. levothyroxine sodium 0.125 mg oral tablet (20 sources) l-Thyroxine Start: 3 take 1 tablet by mouth once daily levothyroxine 125 mcg (0.125 mg) Tab 125 mcg = 1 tab(s), Oral, Daily, Refills(s) 0 Start Date: 04/23/23 Status: Ordered Start: 02-04-2020 take 1 tablet by mouth once le vothyroxine (SYNTHROID) 125 mcg tablet Take 1 tablet by mouth every afternoon. 0 02/25/2023 Active Comment on above: Take 1 tablet by radha th every afternoon. Multi Vitamins oral tablet (4 sources) Start: 3 take 1 tablet by mouth once daily Multi Vitamins oral tablet 1 tab(s), Oral, Daily, Refill(s) 0 Start Date: 04/23/23 Status: Ordered Multiple Vitamin (Multi-Vitamin) tablet (1 source) take 1 tablet by mouth once daily Multiple Vitamin (Multi-Vitamin) tablet Take 1 tablet by mouth daily. Active Multiple Vitamin (MULTI-VITAMIN) TABS (3 sources) take 1 tablet by mouth once daily Multiple Vitamin (MULTI-VITAMIN) TABS Take 1 tablet by mouth daily. 0 Active MULTIVITAMIN ORAL (20 sources) take 1 dose by mouth once daily MULTIVITAMIN ORAL Take 1 Dose by mouth once daily. 0 Active MULTIVITAMIN ORA L Take by mouth. 0 Active Comment on above: Take by mouth. Take 1 Dose by mouth once daily. ondansetron 8 mg oral tablet (20 sources) Serotonin-3 Receptor Antagonist Start: 3 End: 3 take 1 tablet by mouth every eight hours as needed ondansetron (ZOFRAN) 8 mg tablet Take 1 tablet by mouth every 8 hours as needed for nausea/vomiting. 90 tablet 1 06/06/2023 Active Comment on above: Take 1 tablet by radha th every 8 hours as needed for nausea/vomiting. perflutren lipid microspheres 1.3 mL in NaCl (PF) 0.9% 10 mL injection (DEFINITY) (20 sources) Start: 3 End: 4 perflutren lipid microspheres 1.3 mL in NaCl (PF) 0.9% 10 mL injection (DEFINITY) predniSONE 20 mg oral tablet (16 sources) Start: 3 take 2 tablets by mouth once daily, then take 1 tablet by mouth once daily predniSONE 20 MG tablet TAKE 2 TABLETS BY MOUTH DAILY FOR 5 DAYS,THEN 1 TABLET DAILY 06/02/2023 Active Start: 06-02-2023 End: 07-08-2023 take 1 tablet by mouth once daily, [...] mg oral tablet (20 sources) Phenothiazine Start: 023 End: 023 take 1 tablet by mouth every six hours as needed prochlorperazine (COMPAZINE) 10 mg tablet Take 1 tablet by mouth every 6 hours as needed. 100 tablet 1 06/06/2023 Active Comment on above: Take 1 tablet by radha th every 6 hours as needed. Completed/Discontinued Medications Medication Drug Class(es) Dates Sig (Normalized) Sig (Original) allopurinol 300 mg oral tablet (11 sources) Xanthine Oxidase Inhibitor Start: 3 End: 3 take 1 tablet by mouth once daily allopurinol (ZYLOPRIM) 300 mg tablet Take 1 tablet by mouth once daily. 30 tablet 1 06/06/2023 07/08/2023 Discontinued (Discontinued by Patient) Comment on above: Take 1 tablet by radha th once daily. Calcium Chloride (1 source) Start: 4 End: 4 calcium chloride 1 g in D5W 100 mL dextrose 2.45 g-sodium citrate 2.2 g-citrate acid 730 mg/100 mL (ACD-A) infusion (1 source) Start: 4 End: dextrose 2.45 g-sodium citrate 2.2 g-citrate acid 730 mg/100 mL (ACD-A) infusion methylPREDNISolone (2 sources) Corticosteroid Start: 3 End: methylPREDNISolone (MEDROL, JOHNNY,) 4 mg Dose-Pack Use as directed. 21 tablet 0 06/27/2023 07/02/2023 Start: 06-27-2023 End: 07-02-2023 methylPREDNISolone (MEDROL, JOHNNY,) 4 mg Dose-Pack Use as directed. 21 tablet 0 06/27/2023 07/02/2023 Active Comment on above: Use as directed. 125 ml sodium chloride 9 mg/ml prefilled syringe (20 sources) Start: 03-09-2024 End: 03-11-2024 sodium chloride 0.9 % (flush) 10-20 mL (BD POSIFLUSH) Start: 05-19-2023 End: 08-17-2024 sodium chloride 0.9 % (flush ) 10-20 mL (BD POSIFLUSH) triamcinolone acetonide 1 mg/ml topical cream (3 sources) Corticosteroid Start: 06-27-2023 End: 07-08-2023 triamcinolone acetonide (KENALOG) 0.1 % cream Apply to affected area twice daily. 454 g 1 06/27/2023 07/08/2023 Discontinued Comment on above: Apply to affected ar ea twice daily. Problems Active Problems Problem Classification Problem Date Documented Da te Episodic/Chronic Esophageal disorders (4 sources) Gastroesophageal reflux disease 04-23-2023 Chronic Lymphadenitis (6 sources) Localized enlarged lymph nodes; Translations: [Localized enlarged lymph nodes] Onset: 3 Episodic Non-Hodgkin`s lymphoma (20 sources) Non-Hodgkin's lymphoma (clinical); Translations: [Malignant lymphoma of extranodal AND/OR solid organ site] Onset: 3 02-11-2013 Chronic Non-Hodgkin`s lymphoma (8 sources) History of B-cell lymphoma; Translations: [Personal history of non-Hodgkin lymphomas] 05-31-2023 Episodic Other aftercare (1 source) Procedure carried out on subject; Translations: [Encounter for adjustment and management of vascular access device] Onset: 3 Episodic Other aftercare (1 source) Drug therapy finding; Translations: [Encounter for therapeutic drug level monitoring] 02-18-2024 Episodic Other aftercare (1 source) Encounter for therapeutic drug level monitoring; Translations: [Encounter for monitoring cardiotoxic drug therapy] Onset: 4 Episodic Other aftercare (1 source) Other varnish blender (current) drug therapy; Translations: [Encounter for monitoring cardiotoxic drug therapy] Onset: 4 Episodic Other gastrointestinal disorders (1 source) Groin mass 12-09-2023 Episodic Other hematologic conditions (2 sources) H/O: blood disorder; Translations: [Personal history of diseases of the blood and blood-forming organs and certain disorders involving the immune mechanism] 02-18-2024 Episodic Other hematologic conditions (1 source) Personal history of diseases of the blood and blood-forming organs and certain disorders involving the immune mechanism; Translations: [Personal history of diseases of blood and blood-forming organs] Onset: 4 Episodic Other lower respiratory disease (1 source) Dyspnea on exertion; Translations: [Other forms of dyspnea] 05-19-2023 Episodic Other nutritional; endocrine; and metabolic disorders (4 sources) Overweight 04-29-2023 Episodic Other nutritional; endocrine; and metabolic disorders (4 sources) Overweight in adulthood with body mass index of 25 or more but less than 30 04-29-2023 Episodic Residual codes; unclassified (2 sources) Device in situ 06-17-2023 Episodic Thyroid disorders (20 sources) Hypothyroidism; Translations: [Hypothyroidism, unspecified] Onset: 3 08-03-2015 Chronic Unclassified (1 source) Patient encounter status; Translations: [Encounter for screening for lung cancer] Unclassified (1 source) Lymphoma Onset: 4 Past or Other Problems Problem Classification Problem Date Documented Da te Episodic/Chronic Coagulation and hemorrhagic disorders (20 sources) Platelet count below reference range; Translations: [Thrombocytopenia , unspecified] Onset: 08-06-2023 Resolved: 03-09-2024 08-06-2023 Chronic Results Test Name Value Interpretation Reference Range [facility] CNPN Normal [facility] BILIRUBIN, CONJUGATEDon 05-0 Bilirubin.conjugated [Mass/Vol] mg/dL NINF - 0.2 mg/dL [facility] Bilirub Conj SerPl-mCncon Bilirubin.conjugated [Mass/Vol] mg/dL Normal <0.2 [facility] Comment on above: Order Comment: Speci men Type: BLOOD SPECIMENOrdering Facility: [facility] Address: [address] [place] [address] Performed By: #### 2 4323-8, 3084-1, 54744-8 ####[facility] [id number] [place] [address] [place] C-REACTIVE PROTEINon 024 CRP [Mass/Vol] 2.3 mg/dL High NINF - 0.9 mg/dL [facility] CBC W Auto Differential pane l (Bld)on 03-09-2024 Basophils (Bld) [#/Vol] 0.07 10*3/uL Normal <0.11 [facility] Comment on above: Order Comment: Speci men Type: BLOOD SPECIMENOrdering Facility: [facility] Address: [address] [place] [address] Performed By: #### 5 7021-8 ####[facility] [id number] [place] [address] [place] Basophils/100 WBC (Bld) 0.9 % Normal [facility] Comment on above: Order Comment: Speci men Type: BLOOD SPECIMENOrdering Facility: [facility] Address: [address] [place] [address] Performed By: #### 5 7021-8 ####[facility] [id number] [place] [address] [place] Differential cell count method Nom (Bld) Auto Normal [facility] Comment on above: Order Comment: Speci men Type: BLOOD SPECIMENOrdering Facility: [facility] Address: [address] [place] [address] Performed By: #### 5 7021-8 ####[facility] [id number] [place] [address] [place] Eosinophils (Bld) [#/Vol] 0.38 10*3/uL Normal <0.46 [facility] Comment on above: Order Comment: Speci men Type: BLOOD SPECIMENOrdering Facility: [facility] Address: [address] [place] [address] Performed By: #### 5 7021-8 ####[facility] [id number] [place] [address] [place] Eosinophils/100 WBC (Bld) 5.1 % Normal [facility] Comment on above: Order Comment: Speci men Type: BLOOD SPECIMENOrdering Facility: [facility] Address: [address] [place] [address] Performed By: #### 5 7021-8 ####[facility] [id number] [place] [address] [place] Erythrocyte distribution width (RBC) [Ratio] 13.0 % Normal 11.5-15.0 [facility] Comment on above: Order Comment: Speci men Type: BLOOD SPECIMENOrdering Facility: [facility] Address: [address] [place] [address] Performed By: #### 5 7021-8 ####[facility] [id number] [place] [address] [place] Hematocrit (Bld) [Volume fraction] 38.7 % Low 39.0-51.0 [facility] Comment on above: Order Comment: Speci men Type: BLOOD SPECIMENOrdering Facility: [facility] Address: [address] [place] [address] Performed By: #### 5 7021-8 ####[facility] [id number] [place] [address] [place] Hemoglobin (Bld) [Mass/Vol] 13.2 g/dL Normal 13.0-17.0 [facility] Comment on above: Order Comment: Speci men Type: BLOOD SPECIMENOrdering Facility: [facility] Address: [address] [place] [address] Performed By: #### 5 7021-8 ####[facility] [id number] [place] [address] [place] Immature granulocytes (Bld) [#/Vol] 10*3/uL Normal <0.10 [facility] Comment on above: Order Comment: Speci men Type: BLOOD SPECIMENOrdering Facility: [facility] Address: [address] [place] [address] Performed By: #### 5 7021-8 ####[facility] [id number] [place] [address] [place] Immature granulocytes/100 WBC (Bld) 0.3 % Normal [facility] Comment on above: Order Comment: Speci men Type: BLOOD SPECIMENOrdering Facility: [facility] Address: [address] [place] [address] Performed By: #### 5 7021-8 ####[facility] [id number] [place] [address] [place] Lymphocytes (Bld) [#/Vol] 0.54 10*3/uL Low 1.00-4.00 [facility] Comment on above: Order Comment: Speci men Type: BLOOD SPECIMENOrdering Facility: [facility] Address: [address] [place] [address] Performed By: #### 5 7021-8 ####[facility] [id number] [place] [address] [place] Lymphocytes/100 WBC (Bld) 7.3 % Normal [facility] Comment on above: Order Comment: Speci men Type: BLOOD SPECIMENOrdering Facility: [facility] Address: [address] [place], [place] [id number] Performed By: #### 5 7021-8 ####[facility] [id number] [address] [place] [facility] MCH (RBC) [Entitic mass] 30.7 pg Normal 26.0-34.0 [facility] Comment on above: Order Comment: Speci men Type: BLOOD SPECIMENOrdering Facility: [facility] Address: [address] [place] [address] Performed By: #### 5 7021-8 ####[facility] [id number] [place] [address] [place] MCHC (RBC) [Mass/Vol] 34.1 g/dL Normal 30.5-36.0 [facility] Comment on above: Order Comment: Speci men Type: BLOOD SPECIMENOrdering Facility: [facility] Address: [address] [place] [address] Performed By: #### 5 7021-8 ####[facility] [id number] [place] [address] [place] MCV (RBC) [Entitic vol] 90.0 fL Normal 80.0-100.0 [facility] Comment on above: Order Comment: Speci men Type: BLOOD SPECIMENOrdering Facility: [facility] Address: [address] [place] [address] Performed By: #### 5 7021-8 ####[facility] [id number] [place] [address] [place] Monocytes (Bld) [#/Vol] 1.06 10*3/uL High <0.87 [facility] Comment on above: Order Comment: Speci men Type: BLOOD SPECIMENOrdering Facility: [facility] Address: [address] [place] [address] Performed By: #### 5 7021-8 ####[facility] [id number] [place] [address] [place] Monocytes/100 WBC (Bld) 14.3 % Normal [facility] Comment on above: Order Comment: Speci men Type: BLOOD SPECIMENOrdering Facility: [facility] Address: [address] [place] [address] Performed By: #### 5 7021-8 ####[facility] [id number] [place] [address] [place] Neutrophils (Bld) [#/Vol] 5.36 10*3/uL Normal 1.45-7.50 [facility] Comment on above: Order Comment: Speci men Type: BLOOD SPECIMENOrdering Facility: [facility] Address: [address] [place] [address] Performed By: #### 5 7021-8 ####[facility] [id number] [place] [address] [place] Neutrophils/100 WBC (Bld) 72.1 % Normal [facility] Comment on above: Order Comment: Speci men Type: BLOOD SPECIMENOrdering Facility: [facility] Address: [address] [place] [address] Performed By: #### 5 7021-8 ####[facility] [id number] [place] [address] [place] Nucleated RBC (Bld) [#/Vol] 10*3/uL Normal <0.01 [facility] Comment on above: Order Comment: Speci men Type: BLOOD SPECIMENOrdering Facility: [facility] Address: [address] [place] [address] Performed By: #### 5 7021-8 ####[facility] [id number] [place] [address] [place] Nucleated RBC/100 WBC (Bld) [Ratio] 0.0 /100 WBC Normal [facility] Comment on above: Order Comment: Speci men Type: BLOOD SPECIMENOrdering Facility: [facility] Address: [address] [place] [address] Performed By: #### 5 7021-8 ####[facility] [id number] [place] [address] [place] Platelet mean volume (Bld) [Entitic vol] 9.9 fL Normal 9.0-12.7 [facility] Comment on above: Order Comment: Speci men Type: BLOOD SPECIMENOrdering Facility: [facility] Address: [address] [place] [address] Performed By: #### 5 7021-8 ####[facility] [id number] [place] [address] [place] Platelets (Bld) [#/Vol] 219 10*3/uL Normal 150-400 [facility] Comment on above: Order Comment: Speci men Type: BLOOD SPECIMENOrdering Facility: [facility] Address: [address] [place] [address] Performed By: #### 5 7021-8 ####[facility] [id number] [place] [address] [place] RBC (Bld) [#/Vol] 4.30 10*6/uL Normal 4.20-6.00 [facility] Comment on above: Order Comment: Speci men Type: BLOOD SPECIMENOrdering Facility: [facility] Address: [address] [place] [address] Performed By: #### 5 7021-8 ####[facility] [id number] [place] [address] [place] WBC (Bld) [#/Vol] 7.43 10*3/uL Normal 3.70-11.00 [facility] Comment on above: Order Comment: Speci men Type: BLOOD SPECIMENOrdering Facility: [facility] Address: [address] [place] [address] Performed By: #### 5 7021-8 ####[facility] [id number] [place] [id number] [place] Basophils (Bld) [#/Vol] 0.07 10*3/uL [facility] Basophils/100 WBC (Bld) 0.9 % [facility] Differential cell count method Nom (Bld) Auto [facility] Eosinophils (Bld) [#/Vol] 0.38 10*3/uL [facility] Eosinophils/100 WBC (Bld) 5.1 % [facility] Erythrocyte distribution width (RBC) [Ratio] 13.0 % 11.5 - 15.0 % [facility] Hematocrit (Bld) [Volume fraction] 38.7 % Low 39.0 - 51.0 % [facility] Hemoglobin (Bld) [Mass/Vol] 13.2 g/dL 13.0 - 17.0 g/dL [facility] Immature granulocytes (Bld) [#/Vol] [facility] Immature granulocytes/100 WBC (Bld) 0.3 % [facility] Interpretation and review of laboratory results Abnormal [facility] Lymphocytes (Bld) [#/Vol] 0.54 10*3/uL Low [facility] Lymphocytes/100 WBC (Bld) 7.3 % [facility] MCH (RBC) [Entitic mass] 30.7 pg 26.0 - 34.0 pg [facility] MCHC (RBC) [Mass/Vol] 34.1 g/dL 30.5 - 36.0 g/dL [facility] MCV (RBC) [Entitic vol] 90.0 fL 80.0 - 100.0 fL [facility] Monocytes (Bld) [#/Vol] 1.06 10*3/uL High [facility] Monocytes/100 WBC (Bld) 14.3 % [facility] Neutrophils (Bld) [#/Vol] 5.36 10*3/uL [facility] Neutrophils/100 WBC (Bld) 72.1 % [facility] Nucleated RBC (Bld) [#/Vol] [facility] Nucleated RBC/100 WBC (Bld) [Ratio] 0.0 % /100 WBC [facility] Platelet mean volume (Bld) [Entitic vol] 9.9 fL 9.0 - 12.7 fL [facility] Platelets (Bld) [#/Vol] 219 10*3/uL [facility] RBC (Bld) [#/Vol] 4.30 10*6/uL 4.20 - 6.00 m/uL [facility] WBC (Bld) [#/Vol] 7.43 10*3/uL [facility] CRP SerPl-mCncon 03-09-2024 CRP [Mass/Vol] 2.3 mg/dL High <0.9 [facility] Comment on above: Order Comment: Speci men Type: BLOOD SPECIMENOrdering Facility: THE [facility] Address: [address] [place] [address] Performed By: #### 1 988-5 ####[facility] [id number] [place] [address] [place] CRP [Mass/Vol]on 03-09-2024 Interpretation and review of laboratory results Abnormal [facility] Comprehensive metabolic 2000 panelon 03-09-2024 Albumin [Mass/Vol] 4.1 g/dL Normal 3.9-4.9 [facility] Comment on above: Order Comment: Speci men Type: BLOOD SPECIMENOrdering Facility: [facility] Address: [address] [place] [address] Performed By: #### 2 4323-8, 3084-1, 66445-0 ####[facility] [id number] [place] [address] [place] ALP [Catalytic activity/Vol] 252 U/L High 38-113 [facility] Comment on above: Order Comment: Speci men Type: BLOOD SPECIMENOrdering Facility: [facility] Address: [address] [place] [address] Performed By: #### 2 4323-8, 3084-1, 35851-0 ####[facility] [id number] [place] [address] [place] ALT [Catalytic activity/Vol] 20 U/L Normal 10-54 [facility] Comment on above: Order Comment: Speci men Type: BLOOD SPECIMENOrdering Facility: [facility] Address: [address] [place] [address] Performed By: #### 2 4323-8, 3084-1, 99972-5 ####[facility] [id number] [place] [address] [place] Anion gap [Moles/Vol] 13 mmol/L Normal 9-18 [facility] Comment on above: Order Comment: Speci men Type: BLOOD SPECIMENOrdering Facility: [facility] Address: [address] [place] [address] Performed By: #### 2 4323-8, 308-1, 74470-8 ####[facility] [id number] [place] [address] [place] AST [Catalytic activity/Vol] 19 U/L Normal 14-40 [facility] Comment on above: Order Comment: Speci men Type: BLOOD SPECIMENOrdering Facility: [facility] Address: [address] [place] [address] Performed By: #### 2 4323-8, 308-1, 98473-1 ####[facility] [id number] [place] [address] [place] Bilirubin [Mass/Vol] 0.2 mg/dL Normal 0.2-1.3 [facility] Comment on above: Order Comment: Speci men Type: BLOOD SPECIMENOrdering Facility: [facility] Address: [address] [place] [address] Performed By: #### 2 4323-8, 3084-1, 43875-0 ####[facility] [id number] [place] [address] [place] Calcium [Mass/Vol] 9.4 mg/dL Normal 8.5-10.2 [facility] Comment on above: Order Comment: Speci men Type: BLOOD SPECIMENOrdering Facility: [facility] Address: [address] [place] [address] Performed By: #### 2 4323-8, 3084-1, 92942-6 ####[facility] [id number] [place] [address] [place] Chloride [Moles/Vol] 103 mmol/L Normal 97-105 [facility] Comment on above: Order Comment: Speci men Type: BLOOD SPECIMENOrdering Facility: [facility] Address: [address] [place] [address] Performed By: #### 2 4323-8, 3084-1, 81920-5 ####[facility] [id number] [place] [address] [place] CO2 [Moles/Vol] 24 mmol/L Normal 22-30 [facility] Comment on above: Order Comment: Speci men Type: BLOOD SPECIMENOrdering Facility: [facility] Address: [address] [place] [address] Performed By: #### 2 4323-8, 3084-1, 62222-7 ####[facility] [id number] [place] [address] [place] Creatinine [Mass/Vol] 0.98 mg/dL Normal 0.73-1.22 [facility] Comment on above: Order Comment: Speci men Type: BLOOD SPECIMENOrdering Facility: [facility] Address: [address] [place] [address] Performed By: #### 2 4323-8, 3084-1, 04001-9 ####[facility] [id number] [place] [address] [place] Creatinine and Glomerular filtration rate.predicted panel (S/P/Bld) 85 mL/min/1.73m??? Normal >=60 [facility] Comment on above: Order Comment: Speci men Type: BLOOD SPECIMENOrdering Facility: [facility] Address: [address] [place] [address] Result Comment: Carol mated Glomerular Filtration Rate [...] actual GFR. Performed By: #### 2 4323-8, 3084-1, 59339-4 ####[facility] [id number] [place] [address] [place] Glucose [Mass/Vol] 105 mg/dL High 74-99 [facility] Comment on above: Order Comment: Sara randle Type: BLOOD SPECIMENOrdering Facility: [facility] Address: [address] [place] [address] Result Comment: The [place] Diabetes Association (ADA) provides guidance for cutoff [...] Standards of Medical Care in Diabetes 2016, [place] [employer]. Diabetes Care. 2016.39(Suppl 1). Performed By: #### 2 4323-8, 3084-1, 14134-3 ####[facility] [id number] [place] [id number] [place] Potassium [Moles/Vol] 4.3 mmol/L Normal 3.7-5.1 [facility] Comment on above: Order Comment: Sara randle Type: BLOOD SPECIMENOrdering Facility: [facility] Address: [address] [place] [address] Performed By: #### 2 4323-8, 3084-1, 40359-2 ####[facility] [id number] [place] [address] [place] Protein [Mass/Vol] 7.3 g/dL Normal 6.3-8.0 [facility] Comment on above: Order Comment: Speci men Type: BLOOD SPECIMENOrdering Facility: [facility] Address: [address] [place] [address] Performed By: #### 2 4323-8, 308-1, 30892-5 ####[facility] [id number] [place] [address] [place] Sodium [Moles/Vol] 140 mmol/L Normal 136-144 [facility] Comment on above: Order Comment: Speci men Type: BLOOD SPECIMENOrdering Facility: [facility] Address: [address] [place] [address] Performed By: #### 2 4323-8, 308-, 84804-7 ####[facility] [id number] [place] [address] [place] Urea nitrogen [Mass/Vol] 15 mg/dL Normal 9-24 [facility] Comment on above: Order Comment: Speci men Type: BLOOD SPECIMENOrdering Facility: [facility] Address: [address] [place] [address] Performed By: #### 2 4323-8, 30802-01, 48988-4 ####[facility] [id number] [place] [address] [place] Albumin [Mass/Vol] 4.1 g/dL 3.9 - 4.9 g/dL [facility] ALP [Catalytic activity/Vol] 252 U/L High 38 - 113 U/L [facility] ALT [Catalytic activity/Vol] 20 U/L 10 - 54 U/L [facility] Anion gap [Moles/Vol] 13 mmol/L 9 - 18 mmol/L [facility] AST [Catalytic activity/Vol] 19 U/L 14 - 40 U/L [facility] Bilirubin [Mass/Vol] 0.2 mg/dL 0.2 - 1 .3 mg/dL [facility] Calcium [Mass/Vol] 9.4 mg/dL 8.5 - 10. 2 mg/dL [facility] Chloride [Moles/Vol] 103 mmol/L 97 - 10 5 mmol/L [facility] CO2 [Moles/Vol] 24 mmol/L 22 - 30 mmol/L [facility] Creatinine [Mass/Vol] 0.98 mg/dL 0.73 - 1.22 mg/dL [facility] GFR/1.73 sq M.predicted among non-blacks MDRD (S/P/Bld) [Vol rate/Area] 85 mL/min/{1.73_m2} - PINF [facility] Comment on above: Estimated Glomerular Filtration Rate (eGFR) is calculated using the 2020 CKD-EPI creatinine equation. This equation utilizes serum creatinine, sex, and age as parameters. The creatinine assay has traceable calibration to isotope dilution-mass spectrometry. Refer to KDIGO guidelines for clinical interpretation. In patients with unstable renal function, e.g. those with acute kidney injury, the eGFR may not accurately reflect actual GFR. Glucose [Mass/Vol] 105 mg/dL High 74 - 99 mg/dL [facility] Comment on above: The [place] Diab[employer] [place] Association (ADA) provides guidance for cutoff values for fasting glucose and random glucose. The ADA defines fasting as no caloric intake for at least 8 hours. Fasting plasma glucose results between 100 to 125 mg/dL indicate increased risk for diabetes (prediabetes). Fasting plasma glucose results greater than or equal to 126 mg/dL meet the criteria for diagnosis of diabetes. In the absence of unequivocal hyperglycemia, results should be confirmed by repeat testing. In a patient with classic symptoms of hyperglycemia or hyperglycemic crisis, random plasma glucose results greater than or equal to 200 mg/dL meet the criteria for diagnosis of diabetes. Reference: Standards of Medical Care in Diabetes 2016, [place] [employer]. Diabetes Care. 2016.39(Suppl 1). Interpretation and review of laboratory results Abnormal [facility] Potassium [Moles/Vol] 4.3 mmol/L 3.7 - 5.1 mmol/L [facility] Protein [Mass/Vol] 7.3 g/dL 6.3 - 8.0 g/dL [facility] Sodium [Moles/Vol] 140 mmol/L 136 - 144 mmol/L [facility] Urea nitrogen [Mass/Vol] 15 mg/dL 9 - 24 mg/dL [facility] IR CENTRAL CATH PLACEMENTon 03-09-2024 IR CENTRAL CATH PLACEMENT Normal [facility] LACTATE DEHYDROGENASEon 05 LDH [Catalytic activity/Vol] 214 U/L 135 - 225 U/L [facility] LDH SerPl-cCncon 03-09-2024 LDH [Catalytic activity/Vol] 214 U/L Normal 135-225 [facility] Comment on above: Order Comment: Speci men Type: BLOOD SPECIMENOrdering Facility: [facility] Address: [address] [place] [address] Performed By: #### 2 532-0 ####[facility] [id number] [place] [address] [place] LDH [Catalytic activity/Vol] on 03-09-2024 Interpretation and review of laboratory results Normal [facility] MAGNESIUMon 03-09-2024 Magnesium [Mass/Vol] 2.1 mg/dL 1.7 - 2 .3 mg/dL [facility] Magnesium SerPl-mCncon 03-09 Magnesium [Mass/Vol] 2.1 mg/dL Normal 1.7-2.3 [facility] Comment on above: Order Comment: Speci men Type: BLOOD SPECIMENOrdering Facility: [facility] Address: [address] [place] [address] Performed By: #### 2 777-1, 33942-0 ####[facility] [id number] [place] [address] [place] No Panel Informationon 03-09 Interpretation and review of laboratory results Normal [facility] Interpretation and review of laboratory results Normal [facility] PHOSPHORUS INORGANICon 03-09 Phosphate [Mass/Vol] 3.6 mg/dL 2.7 - 4 .8 mg/dL [facility] Phosphate SerPl-mCncon 03-09 Phosphate [Mass/Vol] 3.6 mg/dL Normal 2.7-4.8 [facility] Comment on above: Order Comment: Speci men Type: BLOOD SPECIMENOrdering Facility: [facility] Address: [address] [place] [address] Performed By: #### 2 777-1, 13311-4 ####[facility] [id number] [place] [address] [place] URIC ACIDon 03-09-2024 Urate [Mass/Vol] 6.7 mg/dL 4.0 - 8.1 mg/dL [facility] Urate SerPl-mCncon Urate [Mass/Vol] 6.7 mg/dL Normal 4.0-8.1 [facility] Comment on above: Order Comment: Speci men Type: BLOOD SPECIMENOrdering Facility: [facility] Address: [address] [place] [address] Performed By: #### 2 4323-8, 3084-1, 87569-4 ####[facility] [id number] [place] [address] [place] BLOOD TB SCREENon 03-08-2024 M. tuberculosis tuberculin stim IFN-g Ql (Bld) Negative Normal [facility] Comment on above: Order Comment: Speci men Type: BLOOD SPECIMENOrdering Facility: [facility] Address: [address] [place] [address] Performed By: #### I NFTBP ####[facility] [id number] [place] [address] [place] MITOGEN MINUS NIL >9.95 Normal >=0.50 [facility] Comment on above: Order Comment: Speci men Type: BLOOD SPECIMENOrdering Facility: [facility] Address: [address] [place] [address] Performed By: #### I NFTBP ####[facility] [id number] [place] [address] [place] TB GAMMA INTERPRETATION Normal [facility] Comment on above: Order Comment: Speci men Type: BLOOD SPECIMENOrdering Facility: [facility] Address: [address] [place] [address] Performed By: #### I NFTBP ####[facility] [id number] [place] [address] [place] TB NIL 0.05 IU/mL Normal <=8.00 [facility] Comment on above: Order Comment: Speci men Type: BLOOD SPECIMENOrdering Facility: [facility] Address: [address] [place] [address] Performed By: #### I NFTBP ####[facility] [id number] [place] [address] [place] TB1 AG MINUS NIL 0.00 IU/mL Normal <0.35 [facility] Comment on above: Order Comment: Speci men Type: BLOOD SPECIMENOrdering Facility: [facility] Address: [address] [place] [address] Performed By: #### I NFTBP ####[facility]CL[facility] [id number] [place] [address] [place] TB2 AG MINUS NIL 0.00 IU/mL Normal <0.35 [facility] Comment on above: Order Comment: Speci men Type: BLOOD SPECIMENOrdering Facility: [facility] Address: [address] [place] [address] Performed By: #### I NFTBP ####[facility] [id number] [place] [address] [place] C-REACTIVE PROTEINon 024 CRP [Mass/Vol] 1.8 mg/dL High NINF - 0.9 mg/dL [facility] CBC W Auto Differential pane l (Bld)on 03-08-2024 Basophils (Bld) [#/Vol] 0.07 10*3/uL Normal <0.11 [facility] Comment on above: Order Comment: Speci men Type: BLOOD SPECIMENOrdering Facility: [facility] Address: [address] [place] [address] Performed By: #### 5 7021-8 ####[facility] [id number] [place] [address] [place] Basophils/100 WBC (Bld) 0.9 % Normal [facility] Comment on above: Order Comment: Speci men Type: BLOOD SPECIMENOrdering Facility: [facility] Address: [address] [place] [address] Performed By: #### 5 7021-8 ####[facility] [id number] [place] [address] [place] Differential cell count method Nom (Bld) Auto Normal [facility] Comment on above: Order Comment: Speci men Type: BLOOD SPECIMENOrdering Facility: [facility] Address: [address] [place] [address] Performed By: #### 5 7021-8 ####[facility] [id number] [place] [address] [place] Eosinophils (Bld) [#/Vol] 0.44 10*3/uL Normal <0.46 [facility] Comment on above: Order Comment: Speci men Type: BLOOD SPECIMENOrdering Facility: [facility] Address: [address] [place] [address] Performed By: #### 5 7021-8 ####[facility] [id number] [place] [address] [place] Eosinophils/100 WBC (Bld) 5.5 % Normal [facility] Comment on above: Order Comment: Speci men Type: BLOOD SPECIMENOrdering Facility: [facility] Address: [address] [place] [address] Performed By: #### 5 7021-8 ####[facility] [id number] [place] [address] [place] Erythrocyte distribution width (RBC) [Ratio] 12.7 % Normal 11.5-15.0 [facility] Comment on above: Order Comment: Speci men Type: BLOOD SPECIMENOrdering Facility: [facility] Address: [address] [place] [address] Performed By: #### 5 7021-8 ####[facility] [id number] [place] [address] [place] Hematocrit (Bld) [Volume fraction] 40.1 % Normal 39.0-51.0 [facility] Comment on above: Order Comment: Speci men Type: BLOOD SPECIMENOrdering Facility: [facility] Address: [address] [place] [address] Performed By: #### 5 7021-8 ####[facility] [id number] [place] [address] [place] Hemoglobin (Bld) [Mass/Vol] 13.8 g/dL Normal 13.0-17.0 [facility] Comment on above: Order Comment: Speci men Type: BLOOD SPECIMENOrdering Facility: [facility] Address: [address] [place] [address] Performed By: #### 5 7021-8 ####[facility] [id number] [place] [address] [place] Immature granulocytes (Bld) [#/Vol] 0.03 10*3/uL Normal <0.10 [facility] Comment on above: Order Comment: Speci men Type: BLOOD SPECIMENOrdering Facility: [facility] Address: [address] [place] [address] Performed By: #### 5 7021-8 ####[facility] [id number] [place] [address] [place] Immature granulocytes/100 WBC (Bld) 0.4 % Normal [facility] Comment on above: Order Comment: Speci men Type: BLOOD SPECIMENOrdering Facility: [facility] Address: [address] [place] [address] Performed By: #### 5 7021-8 ####[facility] [id number] [place] [address] [place] Lymphocytes (Bld) [#/Vol] 0.48 10*3/uL Low 1.00-4.00 [facility] Comment on above: Order Comment: Speci men Type: BLOOD SPECIMENOrdering Facility: [facility] Address: [address] [place] [address] Performed By: #### 5 7021-8 ####[facility] [id number] [place] [address] [place] Lymphocytes/100 WBC (Bld) 6.0 % Normal [facility] Comment on above: Order Comment: Speci men Type: BLOOD SPECIMENOrdering Facility: [facility] Address: [address] [place] [address] Performed By: #### 5 7021-8 ####[facility] [id number] [place] [address] [place] MCH (RBC) [Entitic mass] 31.1 pg Normal 26.0-34.0 [facility] Comment on above: Order Comment: Speci men Type: BLOOD SPECIMENOrdering Facility: [facility] Address: [address] [place] [address] Performed By: #### 5 7021-8 ####[facility] [id number] [place] [address] [place] MCHC (RBC) [Mass/Vol] 34.4 g/dL Normal 30.5-36.0 [facility] Comment on above: Order Comment: Speci men Type: BLOOD SPECIMENOrdering Facility: [facility] Address: [address] [place] [address] Performed By: #### 5 7021-8 ####[facility] [id number] [place] [address] [place] MCV (RBC) [Entitic vol] 90.3 fL Normal 80.0-100.0 [facility] Comment on above: Order Comment: Speci men Type: BLOOD SPECIMENOrdering Facility: [facility] Address: [address] [place] [address] Performed By: #### 5 7021-8 ####[facility] [id number] [place] [address] [place] Monocytes (Bld) [#/Vol] 1.16 10*3/uL High <0.87 [facility] Comment on above: Order Comment: Speci men Type: BLOOD SPECIMENOrdering Facility: [facility] Address: [address] [place] [address] Performed By: #### 5 7021-8 ####[facility] [id number] [place] [address] [place] Monocytes/100 WBC (Bld) 14.4 % Normal [facility] Comment on above: Order Comment: Speci men Type: BLOOD SPECIMENOrdering Facility: [facility] Address: [address] [place] [address] Performed By: #### 5 7021-8 ####[facility] [id number] [place] [address] [place] Neutrophils (Bld) [#/Vol] 5.86 10*3/uL Normal 1.45-7.50 [facility] Comment on above: Order Comment: Speci men Type: BLOOD SPECIMENOrdering Facility: [facility] Address: [address] [place] [address] Performed By: #### 5 7021-8 ####[facility] [id number] [place] [address] [place] Neutrophils/100 WBC (Bld) 72.8 % Normal [facility] Comment on above: Order Comment: Speci men Type: BLOOD SPECIMENOrdering Facility: [facility] Address: [address] [place] [address] Performed By: #### 5 7021-8 ####[facility] [id number] [place] [address] [place] Nucleated RBC (Bld) [#/Vol] 10*3/uL Normal <0.01 [facility] Comment on above: Order Comment: Speci men Type: BLOOD SPECIMENOrdering Facility: [facility] Address: [address] [place] [address] Performed By: #### 5 7021-8 ####[facility] [id number] [place] [address] [place] Nucleated RBC/100 WBC (Bld) [Ratio] 0.0 /100 WBC Normal [facility] Comment on above: Order Comment: Speci men Type: BLOOD SPECIMENOrdering Facility: [facility] Address: [address] [place] [address] Performed By: #### 5 7021-8 ####[facility] [id number] [place] [address] [place] Platelet mean volume (Bld) [Entitic vol] 11.0 fL Normal 9.0-12.7 [facility] Comment on above: Order Comment: Speci men Type: BLOOD SPECIMENOrdering Facility: [facility] Address: [address] [place] [address] Performed By: #### 5 7021-8 ####[facility] [id number] [place] [address] [place] Platelets (Bld) [#/Vol] 173 10*3/uL Normal 150-400 [facility] Comment on above: Order Comment: Speci men Type: BLOOD SPECIMENOrdering Facility: [facility] Address: [address] [place] [address] Performed By: #### 5 7021-8 ####[facility] [id number] [place] [address] [place] RBC (Bld) [#/Vol] 4.44 10*6/uL Normal 4.20-6.00 [facility] Comment on above: Order Comment: Speci men Type: BLOOD SPECIMENOrdering Facility: [facility] Address: [address] [place] [address] Performed By: #### 5 7021-8 ####[facility] [id number] [place] [address] [place] WBC (Bld) [#/Vol] 8.04 10*3/uL Normal 3.70-11.00 [facility] Comment on above: Order Comment: Speci men Type: BLOOD SPECIMENOrdering Facility: [facility] Address: [address] [place] [address] Performed By: #### 5 7021-8 ####[facility] AT [facility] [id number] [place] [address] [place] Basophils (Bld) [#/Vol] 0.07 10*3/uL [facility] Basophils/100 WBC (Bld) 0.9 % [facility] Differential cell count method Nom (Bld) Auto [facility] Eosinophils (Bld) [#/Vol] 0.44 10*3/uL [facility] Eosinophils/100 WBC (Bld) 5.5 % [facility] Erythrocyte distribution width (RBC) [Ratio] 12.7 % 11.5 - 15.0 % [facility] Hematocrit (Bld) [Volume fraction] 40.1 % 39.0 - 51.0 % [facility] Hemoglobin (Bld) [Mass/Vol] 13.8 g/dL 13.0 - 17.0 g/dL [facility] Immature granulocytes (Bld) [#/Vol] 0.03 10*3/uL [facility] Immature granulocytes/100 WBC (Bld) 0.4 % [facility] Interpretation and review of laboratory results Abnormal [facility] Lymphocytes (Bld) [#/Vol] 0.48 10*3/uL [facility] Lymphocytes/100 WBC (Bld) 6.0 % [facility] MCH (RBC) [Entitic mass] 31.1 pg 26.0 - 34.0 pg [facility] MCHC (RBC) [Mass/Vol] 34.4 g/dL 30.5 - 36.0 g/dL [facility] MCV (RBC) [Entitic vol] 90.3 fL 80.0 - 100.0 fL [facility] Monocytes (Bld) [#/Vol] 1.16 10*3/uL High NINF [facility] Monocytes/100 WBC (Bld) 14.4 % [facility] Neutrophils (Bld) [#/Vol] 5.86 10*3/uL [facility] Neutrophils/100 WBC (Bld) 72.8 % [facility] Nucleated RBC (Bld) [#/Vol] NINF [facility] Nucleated RBC/100 WBC (Bld) [Ratio] 0.0 % /100 WBC [facility] Platelet mean volume (Bld) [Entitic vol] 11.0 fL 9.0 - 12.7 fL [facility] Platelets (Bld) [#/Vol] 173 10*3/uL [facility] RBC (Bld) [#/Vol] 4.44 10*6/uL 4.20 - 6.00 m/uL [facility] WBC (Bld) [#/Vol] 8.04 10*3/uL [facility] CNOVSPon 03-08-2024 CNOVSP Normal [facility] CRP SerPl-mCncon 03-08-2024 CRP [Mass/Vol] 1.8 mg/dL High <0.9 [facility] Comment on above: Order Comment: Speci men Type: BLOOD SPECIMENOrdering Facility: [facility] Address: [address] [place] [address] Performed By: #### 1 988-5 ####[facility] LABCLIA [id number] [place] [address] [place] CRP [Mass/Vol]on 03-08-2024 Interpretation and review of laboratory results Abnormal [facility] Comprehensive metabolic 2000 panelon 03-08-2024 Albumin [Mass/Vol] 4.3 g/dL Normal 3.9-4.9 [facility] Comment on above: Order Comment: Speci men Type: BLOOD SPECIMENOrdering Facility: [facility] Address: [address] [place] [address] Performed By: #### 2 4323-8, 3083-1, ####[facility] [id number] [place] [address] [place] ALP [Catalytic activity/Vol] 238 U/L High 38-113 [facility] Comment on above: Order Comment: Speci men Type: BLOOD SPECIMENOrdering Facility: [facility] Address: [address] [place] [address] Performed By: #### 2 4323-8, 1, ####[facility] [id number] [place] [address] [place] ALT [Catalytic activity/Vol] 18 U/L Normal 10-54 [facility] Comment on above: Order Comment: Speci men Type: BLOOD SPECIMENOrdering Facility: [facility] Address: [address] [place] [address] Performed By: #### 2 4323-8, 3083-11, ####[facility] [place] [id number] [place] [address] [place] Anion gap [Moles/Vol] 11 mmol/L Normal 9-18 [facility] Comment on above: Order Comment: Speci men Type: BLOOD SPECIMENOrdering Facility: [facility] Address: [address] [place] [address] Performed By: #### 2 4323-8, 3083-11, ####[facility] [id number] [place] [address] [place] AST [Catalytic activity/Vol] 17 U/L Normal 14-40 [facility] Comment on above: Order Comment: Speci men Type: BLOOD SPECIMENOrdering Facility: [facility] Address: [address] [place] [address] Performed By: #### 2 4323-8, 3083-11, ####[facility] [id number] [address] [address] [place] Bilirubin [Mass/Vol] 0.2 mg/dL Normal 0.2-1.3 [facility] Comment on above: Order Comment: Speci men Type: BLOOD SPECIMENOrdering Facility: [facility] Address: [address] [place], [place] [address] Performed By: #### 2 4323-8, 3083-11, ####[facility] [id number] [place] [address] [place] Calcium [Mass/Vol] 9.9 mg/dL Normal 8.5-10.2 [facility] Comment on above: Order Comment: Speci men Type: BLOOD SPECIMENOrdering Facility: [facility] Address: [address] [place], [place] [address] Performed By: #### 2 4323-8, 3083-11, ####[facility] [id number] [place] [address] [place] Chloride [Moles/Vol] 104 mmol/L Normal 97-105 [facility] Comment on above: Order Comment: Speci men Type: BLOOD SPECIMENOrdering Facility: [facility] Address: [address] [place] [address] Performed By: #### 2 4323-8, 3083-11, ####[facility] [id number] [place] [id number] [place] CO2 [Moles/Vol] 25 mmol/L Normal 22-30 [facility] Comment on above: Order Comment: Speci men Type: BLOOD SPECIMENOrdering Facility: [facility] Address: [address] [place] [address] Performed By: #### 2 4323-8, 3084-1, ####[facility] [id number] [place] [address] [place] Creatinine [Mass/Vol] 0.96 mg/dL Normal 0.73-1.22 [facility] Comment on above: Order Comment: Speci men Type: BLOOD SPECIMENOrdering Facility: [facility] Address: [address] [place] [address] Performed By: #### 2 4323-8, 3084-1, ####[facility] [id number] [place] [address] [place] Creatinine and Glomerular filtration rate.predicted panel (S/P/Bld) 87 mL/min/1.73m??? Normal >=60 [facility] Comment on above: Order Comment: Dottyi men Type: BLOOD SPECIMENOrdering Facility: [facility] Address: [address] [place] [address] Result Comment: Carol mated Glomerular Filtration Rate [...] actual GFR. Performed By: #### 2 4323-8, 3084-1, ####[facility] [id number] [place] [id number] [place] Glucose [Mass/Vol] 93 mg/dL Normal 74-99 [facility] Comment on above: Order Comment: Speci men Type: BLOOD SPECIMENOrdering Facility: [facility] Address: [address] [place] [address] Result Comment: The [place] Diabetes Association (ADA) provides guidance for cutoff [...] Standards of Medical Care in Diabetes 2016, [place] [employer]. Diabetes Care. 2016.39(Suppl 1). Performed By: #### 2 4323-8, 3083-11, ####[facility] [id number] [place] [address] [place] Potassium [Moles/Vol] 4.2 mmol/L Normal 3.7-5.1 [facility] Comment on above: Order Comment: Speci men Type: BLOOD SPECIMENOrdering Facility: [facility] Address: [address] [place] [address] Performed By: #### 2 4323-8, 3083-11, ####[facility] [id number] [place] [address] [place] Protein [Mass/Vol] 7.6 g/dL Normal 6.3-8.0 [facility] Comment on above: Order Comment: Speci men Type: BLOOD SPECIMENOrdering Facility: [facility] Address: [address] [place] [address] Performed By: #### 2 4323-8, 3083-11, ####[facility] [id number] [place] [address] [place] Sodium [Moles/Vol] 140 mmol/L Normal 136-144 [facility] Comment on above: Order Comment: Speci men Type: BLOOD SPECIMENOrdering Facility: [facility] Address: [address] [place] [address] Performed By: #### 2 4323-8, 3083-11, ####[facility] [id number] [place] [address] [place] Urea nitrogen [Mass/Vol] 16 mg/dL Normal 9-24 [facility] Comment on above: Order Comment: Speci men Type: BLOOD SPECIMENOrdering Facility: [facility] Address: [address] [place] [address] Performed By: #### 2 4323-8, 3083-, ####[facility] [id number] [place] [address] [place] Albumin [Mass/Vol] 4.3 g/dL 3.9 - 4.9 g/dL [facility] ALP [Catalytic activity/Vol] 238 U/L High 38 - 113 U/L [facility] ALT [Catalytic activity/Vol] 18 U/L 10 - 54 U/L [facility] Anion gap [Moles/Vol] 11 mmol/L 9 - 18 mmol/L [facility] AST [Catalytic activity/Vol] 17 U/L 14 - 40 U/L [facility] Bilirubin [Mass/Vol] 0.2 mg/dL 0.2 - 1 .3 mg/dL [facility] Calcium [Mass/Vol] 9.9 mg/dL 8.5 - 10. 2 mg/dL [facility] Chloride [Moles/Vol] 104 mmol/L 97 - 10 5 mmol/L [facility] CO2 [Moles/Vol] 25 mmol/L 22 - 30 mmol/L [facility] Creatinine [Mass/Vol] 0.96 mg/dL 0.73 - 1.22 mg/dL [facility] GFR/1.73 sq M.predicted among non-blacks MDRD (S/P/Bld) [Vol rate/Area] 87 mL/min/{1.73_m2} - PINF [facility] Comment on above: Estimated Glomerular Filtration Rate (eGFR) is calculated using the 2020 CKD-EPI creatinine equation. This equation utilizes serum creatinine, sex, and age as parameters. The creatinine assay has traceable calibration to isotope dilution-mass spectrometry. Refer to KDIGO guidelines for clinical interpretation. In patients with unstable renal function, e.g. those with acute kidney injury, the eGFR may not accurately reflect actual GFR. Glucose [Mass/Vol] 93 mg/dL 74 - 99 mg/dL [facility] Comment on above: The [place] Diab[employer] [place] Association (ADA) provides guidance for cutoff values for fasting glucose and random glucose. The ADA defines fasting as no caloric intake for at least 8 hours. Fasting plasma glucose results between 100 to 125 mg/dL indicate increased risk for diabetes (prediabetes). Fasting plasma glucose results greater than or equal to 126 mg/dL meet the criteria for diagnosis of diabetes. In the absence of unequivocal hyperglycemia, results should be confirmed by repeat testing. In a patient with classic symptoms of hyperglycemia or hyperglycemic crisis, random plasma glucose results greater than or equal to 200 mg/dL meet the criteria for diagnosis of diabetes. Reference: Standards of Medical Care in Diabetes 2016, [place] [employer]. Diabetes Care. 2016.39(Suppl 1). Interpretation and review of laboratory results Abnormal [facility] Potassium [Moles/Vol] 4.2 mmol/L 3.7 - 5.1 mmol/L [facility] Protein [Mass/Vol] 7.6 g/dL 6.3 - 8.0 g/dL [facility] Sodium [Moles/Vol] 140 mmol/L 136 - 144 mmol/L [facility] Urea nitrogen [Mass/Vol] 16 mg/dL 9 - 24 mg/dL [facility] LACTATE DEHYDROGENASEon LDH [Catalytic activity/Vol] 228 U/L High 135 - 225 U/L [facility] LDH SerPl-cCncon 03-08-2024 LDH [Catalytic activity/Vol] 228 U/L High 135-225 [facility] Comment on above: Order Comment: Speci men Type: BLOOD SPECIMENOrdering Facility: [facility] Address: [address] [place] [address] Performed By: #### 2 532-0 ####[facility] [id number] [place] [address] [place] LDH [Catalytic activity/Vol] on 03-08-2024 Interpretation and review of laboratory results Abnormal [facility] MAGNESIUMon 03-08-2024 Magnesium [Mass/Vol] 2.1 mg/dL 1.7 - 2 .3 mg/dL [facility] Magnesium [Mass/Vol] 2.1 mg/dL Normal 1.7-2.3 [facility] Comment on above: Order Comment: Speci men Type: BLOOD SPECIMENOrdering Facility: [facility] Address: [address] [place] [address] Performed By: #### 2 4323-8, 3084-1, 64261-9 ####[facility] [id number] [place] [address] [place] No Panel Informationon 03-08 Interpretation and review of laboratory results Normal [facility] PHOSPHORUS INORGANICon 03-08 Phosphate [Mass/Vol] 3.6 mg/dL 2.7 - 4 .8 mg/dL [facility] Phosphate [facility] 03-08 Phosphate [Mass/Vol] 3.6 mg/dL Normal 2.7-4.8 [facility] Comment on above: Order Comment: Speci men Type: BLOOD SPECIMENOrdering Facility: [facility] Address: [address] [place] [address] Performed By: #### 2 777-1 ####[facility] [id number] [address] [place] Phosphate [Mass/Vol]on 03-08 Interpretation and review of laboratory results Normal [facility] URIC ACIDon 03-08-2024 Urate [Mass/Vol] 6.5 mg/dL 4.0 - 8.1 mg/dL [facility] Urate [facility]-ncon Urate [Mass/Vol] 6.5 mg/dL Normal 4.0-8.1 [facility] Comment on above: Order Comment: Speci men Type: BLOOD SPECIMENOrdering Facility: [facility] Address: [address] [place] [address] Performed By: #### 2 4323-8, 3084-1, 86365-0 ####[facility] [id number] [place] [address] [place] NURSING PROGon 03-02-2024 NURSING PROG Normal [facility] CNPNon 03-01-2024 CNPN Normal [facility] CNPNon 02-26-2024 CNPN Normal [facility] CNPNon 02-25-2024 CNPN Normal [facility] ACTIVATED PARTIAL THROMBOPLA STIN TIMEon 02-24-2024 aPTT Coag (PPP) [Time] 24.0 s [facility] CBC W Auto Differential pane l (Bld)on 02-24-2024 Basophils (Bld) [#/Vol] 0.07 10*3/uL Normal <0.11 [facility] Comment on above: Order Comment: Speci men Type: BLOOD SPECIMENOrdering Facility: [facility] Address: [address] [place] [address] Performed By: #### 5 7021-8 ####[facility] [place] [id number] [place] [address] [place] Basophils/100 WBC (Bld) 1.2 % Normal [facility] Comment on above: Order Comment: Speci men Type: BLOOD SPECIMENOrdering Facility: [facility] Address: [address] [place] [address] Performed By: #### 5 7021-8 ####[facility] [place] [id number] [place] [address] [place] Differential cell count method Nom (Bld) Auto Normal [facility] Comment on above: Order Comment: Speci men Type: BLOOD SPECIMENOrdering Facility: [facility] Address: [address] [place] [address] Performed By: #### 5 7021-8 ####[facility] [place] [id number] [place] [address] [place] Eosinophils (Bld) [#/Vol] 0.27 10*3/uL Normal <0.46 [facility] Comment on above: Order Comment: Speci men Type: BLOOD SPECIMENOrdering Facility: [facility] Address: [address] [place] [address] Performed By: #### 5 7021-8 ####[facility] [id number] [place] [address] [place] Eosinophils/100 WBC (Bld) 4.5 % Normal [facility] Comment on above: Order Comment: Speci men Type: BLOOD SPECIMENOrdering Facility: [facility] Address: [address] [place] [address] Performed By: #### 5 7021-8 ####[facility] [id number] [place] [address] [place] Erythrocyte distribution width (RBC) [Ratio] 13.2 % Normal 11.5-15.0 [facility] Comment on above: Order Comment: Speci men Type: BLOOD SPECIMENOrdering Facility: [facility] Address: [address] [place] [address] Performed By: #### 5 7021-8 ####[facility] [id number] [place] [address] [place] Hematocrit (Bld) [Volume fraction] 40.2 % Normal 39.0-51.0 [facility] Comment on above: Order Comment: Speci men Type: BLOOD SPECIMENOrdering Facility: [facility] Address: [address] [place] [address] Performed By: #### 5 7021-8 ####[facility] [id number] [place] [address] [place] Hemoglobin (Bld) [Mass/Vol] 13.3 g/dL Normal 13.0-17.0 [facility] Comment on above: Order Comment: Speci men Type: BLOOD SPECIMENOrdering Facility: [facility] Address: [address] [place] [address] Performed By: #### 5 7021-8 ####[facility] [id number] [place] [address] [place] Immature granulocytes (Bld) [#/Vol] 0.03 10*3/uL Normal <0.10 [facility] Comment on above: Order Comment: Speci men Type: BLOOD SPECIMENOrdering Facility: [facility] Address: [address] [place] [address] Performed By: #### 5 7021-8 ####[facility] [id number] [place] [address] [place] Immature granulocytes/100 WBC (Bld) 0.5 % Normal [facility] Comment on above: Order Comment: Speci men Type: BLOOD SPECIMENOrdering Facility: [facility] Address: [address] [place] [address] Performed By: #### 5 7021-8 ####[facility] [place] [id number] [place] [address] [place] Lymphocytes (Bld) [#/Vol] 0.46 10*3/uL Low 1.00-4.00 [facility] Comment on above: Order Comment: Speci men Type: BLOOD SPECIMENOrdering Facility: [facility] Address: [address] [place] [address] Performed By: #### 5 7021-8 ####[facility] [id number] [place] [address] [place] Lymphocytes/100 WBC (Bld) 7.6 % Normal [facility] Comment on above: Order Comment: Speci men Type: BLOOD SPECIMENOrdering Facility: [facility] Address: [address] [place] [address] Performed By: #### 5 7021-8 ####[facility] [id number] [place] [address] [place] MCH (RBC) [Entitic mass] 31.1 pg Normal 26.0-34.0 [facility] Comment on above: Order Comment: Speci men Type: BLOOD SPECIMENOrdering Facility: [facility] Address: [address] [place] [address] Performed By: #### 5 7021-8 ####[facility] [id number] [place] [address] [place] MCHC (RBC) [Mass/Vol] 33.1 g/dL Normal 30.5-36.0 [facility] Comment on above: Order Comment: Speci men Type: BLOOD SPECIMENOrdering Facility: [facility] Address: [address] [place] [address] Performed By: #### 5 7021-8 ####[facility] [id number] [place] [address] [place] MCV (RBC) [Entitic vol] 93.9 fL Normal 80.0-100.0 [facility] Comment on above: Order Comment: Speci men Type: BLOOD SPECIMENOrdering Facility: [facility] Address: [address] [place] [address] Performed By: #### 5 7021-8 ####[facility] [id number] [place] [address] [place] Monocytes (Bld) [#/Vol] 0.80 10*3/uL Normal <0.87 [facility] Comment on above: Order Comment: Speci men Type: BLOOD SPECIMENOrdering Facility: [facility] Address: [address] [place] [address] Performed By: #### 5 7021-8 ####[facility] [place] [id number] [place] [address] [place] Monocytes/100 WBC (Bld) 13.3 % Normal [facility] Comment on above: Order Comment: Speci men Type: BLOOD SPECIMENOrdering Facility: [facility] Address: [address] [place] [address] Performed By: #### 5 7021-8 ####[facility] [id number] [place] [address] [place] Neutrophils (Bld) [#/Vol] 4.39 10*3/uL Normal 1.45-7.50 [facility] Comment on above: Order Comment: Speci men Type: BLOOD SPECIMENOrdering Facility: [facility] Address: [address] [place] [address] Performed By: #### 5 7021-8 ####[facility] [id number] [place] [address] [place] Neutrophils/100 WBC (Bld) 72.9 % Normal [facility] Comment on above: Order Comment: Speci men Type: BLOOD SPECIMENOrdering Facility: [facility] Address: [address] [place] [address] Performed By: #### 5 7021-8 ####[facility] [place] [id number] [place] [address] [place] Nucleated RBC (Bld) [#/Vol] 10*3/uL Normal <0.01 [facility] Comment on above: Order Comment: Speci men Type: BLOOD SPECIMENOrdering Facility: [facility] Address: [address] [place] [address] Performed By: #### 5 7021-8 ####[facility] [id number] [place] [address] [place] Nucleated RBC/100 WBC (Bld) [Ratio] 0.0 /100 WBC Normal [facility] Comment on above: Order Comment: Speci men Type: BLOOD SPECIMENOrdering Facility: [facility] Address: [address] [place] [address] Performed By: #### 5 7021-8 ####[facility] [id number] [place] [address] [place] Platelet mean volume (Bld) [Entitic vol] 9.8 fL Normal 9.0-12.7 [facility] Comment on above: Order Comment: Speci men Type: BLOOD SPECIMENOrdering Facility: [facility] Address: [address] [place] [address] Performed By: #### 5 7021-8 ####[facility] [id number] [place] [address] [place] Platelets (Bld) [#/Vol] 243 10*3/uL Normal 150-400 [facility] Comment on above: Order Comment: Speci men Type: BLOOD SPECIMENOrdering Facility: [facility] Address: [address] [place] [address] Performed By: #### 5 7021-8 ####[facility] [id number] [place] [address] [place] RBC (Bld) [#/Vol] 4.28 10*6/uL Normal 4.20-6.00 [facility] Comment on above: Order Comment: Speci men Type: BLOOD SPECIMENOrdering Facility: [facility] Address: [address] [place] [address] Performed By: #### 5 7021-8 ####[facility] [id number] [place] [address] [place] WBC (Bld) [#/Vol] 6.02 10*3/uL Normal 3.70-11.00 [facility] Comment on above: Order Comment: Speci men Type: BLOOD SPECIMENOrdering Facility: [facility] [facility] Address: [address] [place] [address] Performed By: #### 5 7021-8 ####[facility] [id number] [place] [address] [place] Basophils (Bld) [#/Vol] 0.07 10*3/uL NINF [facility] Basophils/100 WBC (Bld) 1.2 % [facility] Differential cell count method Nom (Bld) Auto [facility] Eosinophils (Bld) [#/Vol] 0.27 10*3/uL [facility] Eosinophils/100 WBC (Bld) 4.5 % [facility] Erythrocyte distribution width (RBC) [Ratio] 13.2 % 11.5 - 15.0 % [facility] Hematocrit (Bld) [Volume fraction] 40.2 % 39.0 - 51.0 % [facility] Hemoglobin (Bld) [Mass/Vol] 13.3 g/dL 13.0 - 17.0 g/dL [facility] Immature granulocytes (Bld) [#/Vol] 0.03 10*3/uL [facility] Immature granulocytes/100 WBC (Bld) 0.5 % [facility] Interpretation and review of laboratory results Abnormal [facility] Lymphocytes (Bld) [#/Vol] 0.46 10*3/uL Low [facility] Lymphocytes/100 WBC (Bld) 7.6 % [facility] MCH (RBC) [Entitic mass] 31.1 pg 26.0 - 34.0 pg [facility] MCHC (RBC) [Mass/Vol] 33.1 g/dL 30.5 - 36.0 g/dL [facility] MCV (RBC) [Entitic vol] 93.9 fL 80.0 - 100.0 fL [facility] Monocytes (Bld) [#/Vol] 0.80 10*3/uL [facility] Monocytes/100 WBC (Bld) 13.3 % [facility] Neutrophils (Bld) [#/Vol] 4.39 10*3/uL [facility] Neutrophils/100 WBC (Bld) 72.9 % [facility] Nucleated RBC (Bld) [#/Vol] [facility] Nucleated RBC/100 WBC (Bld) [Ratio] 0.0 % /100 WBC [facility] Platelet mean volume (Bld) [Entitic vol] 9.8 fL 9.0 - 12.7 fL [facility] Platelets (Bld) [#/Vol] 243 10*3/uL [facility] RBC (Bld) [#/Vol] 4.28 10*6/uL 4.20 - 6.00 m/uL [facility] WBC (Bld) [#/Vol] 6.02 10*3/uL [facility] CNNURSEon 02-24-2024 CNNURSE Normal [facility] Comprehensive metabolic 2000 panelon 02-24-2024 Albumin [Mass/Vol] 4.2 g/dL Normal 3.9-4.9 [facility] Comment on above: Order Comment: Speci men Type: BLOOD SPECIMENOrdering Facility: [facility] Address: [address] [place] [address] Performed By: #### 1 9123-9, 06492-1 ####[facility] [id number] [place] [address] [place] ALP [Catalytic activity/Vol] 201 U/L High 38-113 [facility] Comment on above: Order Comment: Speci men Type: BLOOD SPECIMENOrdering Facility: [facility] Address: [address] [place] [address] Performed By: #### 1 9123-9, 79577-3 ####[facility] [id number] [place] [address] [place] ALT [Catalytic activity/Vol] 18 U/L Normal 10-54 [facility] Comment on above: Order Comment: Speci men Type: BLOOD SPECIMENOrdering Facility: [facility] Address: [address] [place] [address] Performed By: #### 1 9123-9, 58799-8 ####[facility] [id number] [place] [address] [place] Anion gap [Moles/Vol] 11 mmol/L Normal 9-18 [facility] Comment on above: Order Comment: Speci men Type: BLOOD SPECIMENOrdering Facility: [facility] Address: [address] [place] [address] Performed By: #### 1 9123-9, 25004-2 ####[facility] [id number] [place] [address] [place] AST [Catalytic activity/Vol] 19 U/L Normal 14-40 [facility] Comment on above: Order Comment: Speci men Type: BLOOD SPECIMENOrdering Facility: [facility] Address: [address] [place] [address] Performed By: #### 1 9123-9, 61952-7 ####[facility] [id number] [place] [address] [place] Bilirubin [Mass/Vol] 0.2 mg/dL Normal 0.2-1.3 [facility] Comment on above: Order Comment: Speci men Type: BLOOD SPECIMENOrdering Facility: [facility] Address: [address] [place] [address] Performed By: #### 1 9123-9, 88240-8 ####[facility] [id number] [place] [address] [place] Calcium [Mass/Vol] 9.6 mg/dL Normal 8.5-10.2 [facility] Comment on above: Order Comment: Speci men Type: BLOOD SPECIMENOrdering Facility: [facility] Address: [address] [place] [address] Performed By: #### 1 9123-9, 28615-5 ####[facility] [id number] [place] [address] [place] Chloride [Moles/Vol] 107 mmol/L High 97-105 [facility] Comment on above: Order Comment: Speci men Type: BLOOD SPECIMENOrdering Facility: [facility] Address: [address] [place] [address] Performed By: #### 1 9123-9, 46191-0 ####[facility] [id number] [place] [address] [place] CO2 [Moles/Vol] 23 mmol/L Normal 22-30 [facility] Comment on above: Order Comment: Speci men Type: BLOOD SPECIMENOrdering Facility: [facility] Address: [address] [place] [address] Performed By: #### 1 9123-9, 79134-5 ####[facility] [id number] [place] [address] [place] Creatinine [Mass/Vol] 0.94 mg/dL Normal 0.73-1.22 [facility] Comment on above: Order Comment: Sara randle Type: BLOOD SPECIMENOrdering Facility: [facility] Address: [address] [place] [address] Performed By: #### 1 9123-9, 87744-2 ####[facility] [id number] [place] [address] [place] Creatinine and Glomerular filtration rate.predicted panel (S/P/Bld) 89 mL/min/1.73m??? Normal >=60 [facility] Comment on above: Order Comment: [facility] Type: BLOOD SPECIMENOrdering Facility: [facility] Address: [address] [place] [address] Result Comment: Carol mated Glomerular Filtration Rate [...] accurately reflect actual GFR. Performed By: #### 1 9123-9, 17723-1 ####[facility] [id number] [place] [address] [place] Glucose [Mass/Vol] 100 mg/dL High 74-99 [facility] Comment on above: Order Comment: Sara randle Type: BLOOD SPECIMENOrdering Facility: [facility] Address: [address] [place] [address] Result Comment: The [place] Diabetes Association (ADA) provides guidance for cutoff [...] Standards of Medical Care in Diabetes 2016, [place] [employer]. Diabetes Care. 2016.39(Suppl 1). Performed By: #### 1 23-9, 73940-5 ####[facility] [id number] [place] [address] [place] Potassium [Moles/Vol] 4.6 mmol/L Normal 3.7-5.1 [facility] Comment on above: Order Comment: Speci men Type: BLOOD SPECIMENOrdering Facility: [facility] Address: [address] [place] [address] Performed By: #### 1 239, ####[facility] [id number] [place] [address] [place] Protein [Mass/Vol] 7.5 g/dL Normal 6.3-8.0 [facility] Comment on above: Order Comment: Sara randle Type: BLOOD SPECIMENOrdering Facility: [facility] Address: [address] [place] [address] Performed By: #### 1 239, 80581-2 ####[facility] [id number] [place] [address] [place] Sodium [Moles/Vol] 141 mmol/L Normal 136-144 [facility] Comment on above: Order Comment: Dottyi men Type: BLOOD SPECIMENOrdering Facility: [facility] Address: [address] [place] [address] Performed By: #### 1 9123-9, ####[facility] [id number] [place] [address] [place] Urea nitrogen [Mass/Vol] 15 mg/dL Normal 9-24 [facility] Comment on above: Order Comment: Speci men Type: BLOOD SPECIMENOrdering Facility: [facility] Address: [address] [place] [address] Performed By: #### 1 9123-9, 43640-1 ####[facility] [id number] [facility] [id number] [address] [place] Albumin [Mass/Vol] 4.2 g/dL 3.9 - 4.9 g/dL [facility] ALP [Catalytic activity/Vol] 201 U/L High 38 - 113 U/L [facility] ALT [Catalytic activity/Vol] 18 U/L 10 - 54 U/L [facility] Anion gap [Moles/Vol] 11 mmol/L 9 - 18 mmol/L [facility] AST [Catalytic activity/Vol] 19 U/L 14 - 40 U/L [facility] Bilirubin [Mass/Vol] 0.2 mg/dL 0.2 - 1 .3 mg/dL [facility] Calcium [Mass/Vol] 9.6 mg/dL 8.5 - 10. 2 mg/dL [facility] Chloride [Moles/Vol] 107 mmol/L High 97 - 10 5 mmol/L [facility] CO2 [Moles/Vol] 23 mmol/L 22 - 30 mmol/L [facility] Creatinine [Mass/Vol] 0.94 mg/dL 0.73 - 1.22 mg/dL [facility] GFR/1.73 sq M.predicted among non-blacks MDRD (S/P/Bld) [Vol rate/Area] 89 mL/min/{1.73_m2} - PINF [facility] Comment on above: Estimated Glomerular Filtration Rate (eGFR) is calculated using the 2020 CKD-EPI creatinine equation. This equation utilizes serum creatinine, sex, and age as parameters. The creatinine assay has traceable calibration to isotope dilution-mass spectrometry. Refer to KDIGO guidelines for clinical interpretation. In patients with unstable renal function, e.g. those with acute kidney injury, the eGFR may not accurately reflect actual GFR. Glucose [Mass/Vol] 100 mg/dL High 74 - 99 mg/dL [facility] Comment on above: The [place] Diabete s Association (ADA) provides guidance for cutoff values for fasting glucose and random glucose. The ADA defines fasting as no caloric intake for at least 8 hours. Fasting plasma glucose results between 100 to 125 mg/dL indicate increased risk for diabetes (prediabetes). Fasting plasma glucose results greater than or equal to 126 mg/dL meet the criteria for diagnosis of diabetes. In the absence of unequivocal hyperglycemia, results should be confirmed by repeat testing. In a patient with classic symptoms of hyperglycemia or hyperglycemic crisis, random plasma glucose results greater than or equal to 200 mg/dL meet the criteria for diagnosis of diabetes. Reference: Standards of Medical Care in Diabetes 2016, [place] Diabetes Association. Diabetes Care. 2016.39(Suppl 1). Interpretation and review of laboratory results Abnormal [facility] Potassium [Moles/Vol] 4.6 mmol/L 3.7 - 5.1 mmol/L [facility] Protein [Mass/Vol] 7.5 g/dL 6.3 - 8.0 g/dL [facility] Sodium [Moles/Vol] 141 mmol/L 136 - 144 mmol/L [facility] Urea nitrogen [Mass/Vol] 15 mg/dL 9 - 24 mg/dL [facility] D dimer FEU PPP-mCncon 02-23 Fibrin D-dimer FEU (PPP) [Mass/Vol] 780 ng/mL FEU High <500 [facility] Comment on above: Order Comment: Sara randle Type: BLOOD SPECIMENOrdering Facility: [facility] Address: [address] [place] [address] Performed By: #### 3 255-7, 43138-8, 00249-6 ####[facility] LABCLIA [id number] [address] [place] D-DIMERon 02-24-2024 Fibrin D-dimer FEU (PPP) [Mass/Vol] 780 High NINF [facility] ECG COMPLETEon 02-24-2024 ECG COMPLETE Normal [facility] ESR Westergren method (Bld) [Velocity]on 02-24-2024 ESR (Bld) [Velocity] 26 mm/h High 0-15 [facility] Comment on above: Order Comment: Sara randle Type: BLOOD SPECIMENOrdering Facility: [facility] Address: [address] [place] [address] Performed By: #### 4 537-7 ####[facility] LABIA [id number] [place] [address] [place] ESR (Bld) [Velocity] 26 mm/h High [facility] Interpretation and review of laboratory results Abnormal [facility] FIBRINOGENon 02-24-2024 Fibrinogen Coag (PPP) [Mass/Vol] 432 mg/dL High 200 - 400 mg/dL [facility] Fibrin D-dimer FEU (PPP) [Ma ss/Vol]on 02-24-2024 D DIMER AGE-RELATED CUTOFF 670 ng/mL FEU Normal [facility] Comment on above: Order Comment: Speci men Type: BLOOD SPECIMENOrdering Facility: [facility] Address: [address] [place], [place] [address] [address] Performed By: #### 3 255-7, 07001-2, 81306-6 ####[facility] LABCLIA [id number] [place] [address] [place] D Dimer Age-related Cutoff 670 ng/mL FEU [facility] 500 ng/mL FEU is the D Dimer cutoff to exclude DVT (deep vein thrombosis) and PE (pulmonary embolism) in patients with a low pre test probability. Supplemental Comment: In patients over 50 years with a low pre test probability for DVT and/or PE, an age adjusted D dimer cutoff can be calculated as [age x 10] ng/mL FEU. For example, a patient of 88 years would have an age adjusted D dimer cutoff of 880 ng/mL FEU. For patients with a suspected DVT, a D dimer level below 500 ng/mL FEU has a negative predictive value of >98.9%, a sensitivity of >96.9% and a specificity of >35.7%. For patients with a suspected PE, a D dimer level below 500 ng/mL FEU has a negative predictive value of >98.5%, and a sensitivity of >96.5% and a specificity of >38.8%. Reference: Dimitri M, et al. SANIA 2014 311:1117 and Wenceslao [place] N, et al. Donna Int Med 2016 165:253. [facility] Fibrinogen PPP-mCncon 2023 Fibrinogen Coag (PPP) [Mass/Vol] 432 mg/dL High 200-400 [facility] Comment on above: Order Comment: Speci men Type: BLOOD SPECIMENOrdering Facility: [facility] Address: [address] [place] [address] Performed By: #### 3 255-7, 73549-1, 83593-7 ####[facility] LABCLIA [id number] [place] [address] [place] HBV surface Ab Ql (S)Ordered By: Neli Champagne on 02-24-2024 HBV surface Ab Qn (S) mIU/mL [facility] Comment on above: <8 mIU/mL: No serolo gical evidence of immunity to Hepatitis B Virus. >/= 8 to <12 mIU/mL: No serological evidence of immunity to Hepatitis B Virus. >/= 12 mIU/mL: Consistent with serological evidence of immunity to Hepatitis B Virus. [facility] HBV surface Ab Ql (S)on 02-02 HBV surface Ab Qn (S) <8.00 Normal [facility] Comment on above: Order Comment: Speci men Type: BLOOD SPECIMENOrdering Facility: [facility] Address: [address] [place] [address] Result Comment: <8 m IU/mL: No serological evidence of immunity to Hepatitis B Virus.>/= 8 to <12 mIU/mL: No serological evidence of immunity to Hepatitis B Virus.>/= 12 mIU/mL: Consistent with serological evidence of immunity to Hepatitis B Virus. Performed By: #### 2 2322-2 ####[facility] LABCLIA [id number] [place] [address] [place] HBV surface Ab Ser Qlon 02-02 HBV surface Ab Ql (S) Negative Normal [facility] Comment on above: Order Comment: Speci men Type: BLOOD SPECIMENOrdering Facility: [facility] Address: [address] [place] [address] Result Comment: No s erological evidence of immunity to Hepatitis B Virus. Performed By: #### 2 2322-2 ####[facility] LABCLIA [id number] [place] [address] [place] HEPATITIS B SURFACE ANTIBODY Ordered By: Neli Champagne on 02-24-2024 HBV surface Ab Ql (S) Negative [facility] Comment on above: No serological evide nce of immunity to Hepatitis B Virus. IDM PANEL ADULTon 02-24-2024 ANTI-HBC Negative Normal Negative/N on-reactiv e [facility] Comment on above: Order Comment: Speci men Type: BLOOD SPECIMENOrdering Facility: [facility] Address: [address] [place] [address] Performed By: #### I DMAD ####[facility] LABIA [id number] [place] [address] [place] ANTI-HCV Negative Normal Negative/N on-reactiv e [facility] Comment on above: Order Comment: Speci men Type: BLOOD SPECIMENOrdering Facility: [facility] Address: [address] [place] [address] Performed By: #### I DMAD ####[facility] LABCLIA [id number] [place] [address] [place] ANTI-HTLV I/II Negative Normal Negative/N on-reactiv e [facility] Comment on above: Order Comment: Speci men Type: BLOOD SPECIMENOrdering Facility: [facility] Address: [address] [place] [address] Performed By: #### I DMAD ####[facility] LABCLIA [id number] [place] [address] [place] CHAGAS Negative Normal Negative/N on-reactiv e [facility] Comment on above: Order Comment: Speci men Type: BLOOD SPECIMENOrdering Facility: [facility] Address: [address] [place] [address] Performed By: #### I DMAD ####[facility] LABCLIA [id number] [place] [address] [place] CMV Negative Normal Negative/N on-reactiv e [facility] Comment on above: Order Comment: Speci men Type: BLOOD SPECIMENOrdering Facility: [facility] Address: [address] [place] [address] Performed By: #### I DMAD ####[facility] LABCLIA [id number] [place] [address] [place] EXPIRATION OF IDM 03/25/2024 Normal [facility] [place] Comment on above: Order Comment: Speci men Type: BLOOD SPECIMENOrdering Facility: [facility] Address: [address] [place] [address] Performed By: #### I DMAD ####[facility] LABCLIA [id number] [place] [address] [place] HBSAG Negative Normal Negative/N on-reactiv e [facility] Comment on above: Order Comment: Speci men Type: BLOOD SPECIMENOrdering Facility: [facility] Address: [address] [place] [address] Performed By: #### I DMAD ####[facility] LABCLIA [id number] [place] [address] [place] HBVNAT Negative Normal Negative/N on-reactiv e [facility] Comment on above: Order Comment: Speci men Type: BLOOD SPECIMENOrdering Facility: [facility] Address: [address] [place] [address] Performed By: #### I DMAD ####[facility] LABCLIA [id number] [place] [address] [place] HCVNAT Negative Normal Negative/N on-reactiv e [facility] Comment on above: Order Comment: Speci men Type: BLOOD SPECIMENOrdering Facility: [facility] Address: [address] [place] [address] Performed By: #### I DMAD ####[facility] LABCLIA [id number] [place] [address] [place] HIV 1+2 Ab Ql (S donor) Negative Normal Negative/N on-reactiv e [facility] Comment on above: Order Comment: Speci men Type: BLOOD SPECIMENOrdering Facility: [facility] Address: [address] [place] [address] Performed By: #### I DMAD ####[facility] LABCLIA [id number] [place] [address] [place] HIVNAT Negative Normal Negative/N on-reactiv e [facility] Comment on above: Order Comment: Speci men Type: BLOOD SPECIMENOrdering Facility: [facility] Address: [address] [place] [address] Performed By: #### I DMAD ####[facility] LABCLIA [id number] [place] [address] [place] STS Negative Normal Negative/N on-reactiv e [facility] Comment on above: Order Comment: Speci men Type: BLOOD SPECIMENOrdering Facility: [facility] Address: [address] [place] [address] Performed By: #### I DMAD ####[facility] LABCLIA [id number] [place] [address] [place] WNVNAT Negative Normal Negative/N on-reactiv e [facility] Comment on above: Order Comment: Speci men Type: BLOOD SPECIMENOrdering Facility: [facility] Address: [address] [place] [address] Performed By: #### I DMAD ####[facility] LABCLIA [id number] [place] [address] [place] IMMUNOGLOBULINS,IGG,IGA,IGMo n 02-24-2024 IgA [Mass/Vol] 175 mg/dL 70 - 400 mg/dL [facility] IgG [Mass/Vol] 1258 mg/dL 700 - 1600 mg/dL [facility] IgM [Mass/Vol] 15 mg/dL Low 40 - 230 mg/dL [facility] Interpretation and review of laboratory results Abnormal [facility] IgA [Mass/Vol] 175 mg/dL Normal 70-400 [facility] Comment on above: Order Comment: Speci men Type: BLOOD SPECIMENOrdering Facility: [facility] Address: [address] [place] [address] Performed By: #### S ERIMM ####[facility] LABCLIA [id number] [place] [address] [place] IgG [Mass/Vol] 1258 mg/dL Normal 700-1600 [facility] Comment on above: Order Comment: Speci men Type: BLOOD SPECIMENOrdering Facility: [facility] Address: [address] [place] [address] Performed By: #### S ERIMM ####[facility] LABIA [id number] [place] [address] [place] IgM [Mass/Vol] 15 mg/dL Low 40-230 [facility] Comment on above: Order Comment: Speci men Type: BLOOD SPECIMENOrdering Facility: [facility] Address: [address] [place] [address] Performed By: #### S ERIMM ####[facility] LABIA [id number] [place] [address] [place] LACTATE DEHYDROGENASEon 02-02 LDH [Catalytic activity/Vol] 205 U/L 135 - 225 U/L [facility] LDH SerPl-cCncon 02-24-2024 LDH [Catalytic activity/Vol] 205 U/L Normal 135-225 [facility] Comment on above: Order Comment: Speci men Type: BLOOD SPECIMENOrdering Facility: [facility] Address: [address] [place] [address] Performed By: #### 2 532-0 ####[facility] [id number] [place] [address] [place] LDH [Catalytic activity/Vol] on 02-24-2024 Interpretation and review of laboratory results Normal [facility] MAGNESIUMon 02-24-2024 Magnesium [Mass/Vol] 2.2 mg/dL 1.7 - 2 .3 mg/dL [facility] Magnesium SerPl-mCncon 02-23 Magnesium [Mass/Vol] 2.2 mg/dL Normal 1.7-2.3 [facility] Comment on above: Order Comment: Sara randle Type: BLOOD SPECIMENOrdering Facility: [facility] Address: [address] [place] [address] Performed By: #### 1 9123-9, 00944-5 ####[facility] [id number] [place] [address] [place] Magnesium [Mass/Vol]on 02-23 Interpretation and review of laboratory results Normal [facility] No Panel Informationon 02-23 [facility] Interpretation and review of laboratory results Abnormal [facility] PT panel Coag (PPP)on 2023 INR Coag (PPP) [Relative time] 1.1 {INR} Normal 0.9-1.3 [facility] Comment on above: Order Comment: Sara randle Type: BLOOD SPECIMENOrdering Facility: [facility] Address: [address] [place] [address] Result Comment: Anca min K Antagonist (VKA) Therapeutic Range: INR 2 to 3 (Target INR of 2.5)Note: For patients treated with VKA drugs, such as warfarin, the [employer] 2012 Guideline recommends a therapeutic INR range of 2 to 3 (target INR of 2.5). This recommendation includes high-risk patients with antiphospholipid syndrome with previous arterial or venous thromboembolism, current-generation mechanical or bioprosthetic aortic heart valve replacement.Note: Patients with mechanical aortic valve replacement and additional risk factors for thromboembolic events (atrial fibrillation, previous thromboembolism, LV dysfunction, hypercoagulable conditions) or an older generation mechanical AVR (i.e., ball in-Cage) or any mechanical MVR should have a INR therapeutic range of 2.5 to 3.5 (target INR of 3).Mike RODRIGUEZ, et al. Chest 2012, 141:7S-47SChelsie PETE et al. [facility] 2017, 70: 252-289 Performed By: #### 3 4528-0 ####[facility] [id number] [address] [place] PT Coag (PPP) [Time] 11.3 s Normal 9.7-13.0 [facility] Comment on above: Order Comment: Speci men Type: BLOOD SPECIMENOrdering Facility: [facility] Address: [address] [place] [address] Performed By: #### 3 4528-0 ####[facility] [id number] [address] [place] INR Coag (PPP) [Relative time] 1.1 {INR} 0.9 - 1.3 [facility] Comment on above: Vitamin K Antagonist (VKA) Therapeutic Range: INR 2 to 3 (Target INR of 2.5) Note: For patients treated with VKA drugs, such as warfarin, the [employer] 2012 Guideline recommends a therapeutic INR range of 2 to 3 (target INR of 2.5). This recommendation includes high-risk patients with antiphospholipid syndrome with previous arterial or venous thromboembolism, current-generation mechanical or bioprosthetic aortic heart valve replacement. Note: Patients with mechanical aortic valve replacement and additional risk factors for thromboembolic events (atrial fibrillation, previous thromboembolism, LV dysfunction, hypercoagulable conditions) or an older generation mechanical AVR (i.e., ball in-Cage) or any mechanical MVR should have a INR therapeutic range of 2.5 to 3.5 (target INR of 3). Mike RODRIGUEZ, et al. Chest 2012, 141:7S-47S Chelsie PETE et al. [facility] 2017, 70: 252-289 Interpretation and review of laboratory results Normal [facility] PT Coag (PPP) [Time] 11.3 s [facility] TYPE + SCREENon 02-24-2024 ABO group Nom (Bld) B [facility] Blood group antibody screen Ql Negative [facility] HIstorical Ab Scr Status Negative [facility] Rh Nom (Bld) Negative [facility] Type and Screen Expiration 02/27/2024 23:59 [facility] ABO B Normal [facility] Comment on above: Order Comment: Speci men Type: BLOOD SPECIMENOrdering Facility: [facility] Address: [address] [place] [address] Performed By: #### T SCR ####CC MAIN BLOOD BANKCLIA [id number] [address] HISTORICAL AB SCR STATUS Negative Normal [facility] Comment on above: Order Comment: Speci men Type: BLOOD SPECIMENOrdering Facility: [facility] Address: [address] [place] [address] Performed By: #### T SCR ####CC MAIN BLOOD BANKCLIA [id number] [address] [place] Rh Nom (Bld) Negative Normal [facility] Comment on above: Order Comment: Speci men Type: BLOOD SPECIMENOrdering Facility: [facility] Address: [address] [place] [address] Performed By: #### T SCR ####CC MAIN BLOOD BANKCLIA [id number] [address] OF [facility] TYPE AND SCREEN EXPIRATION 02/27/2024 23:59 Normal [facility] Comment on above: Order Comment: Speci men Type: BLOOD SPECIMENOrdering Facility: [facility] Address: [address] [place] [address] Performed By: #### T SCR ####CC MAIN BLOOD BANKCLIA [id number] [place] [address] [place] aPTT Coag (PPP) [Time]on Interpretation and review of laboratory results Normal [facility] Unfractionated Hepar in Therapeutic Ranges: Standard Heparin Nomogram: 53 to 78 seconds (anti-Xa level of 0.3 to 0.7 U/ml) Low Dose/ACS Nomogram: 49 to 67 seconds (anti-Xa level of 0.2 to 0.5 U/ml) Stroke Treatment Nomogram: 49 to 67 seconds (anti-Xa level of 0.2 to 0.5 U/ml) Note: The APTT therapeutic range has been determined for the current lot of laboratory APTT reagent in use throughout the [facility]. [facility] aPTT PPPon 02-24-2024 aPTT Coag (PPP) [Time] 24.0 s Normal 23.0-32.4 [facility] Comment on above: Order Comment: Speci men Type: BLOOD SPECIMENOrdering Facility: [facility] Address: [address] [place] [address] Performed By: #### 3 255-7, 97007-3, 82371-0 ####[facility] LABCLIA [id number] [place] [address] [place] CNPNon 02-18-2024 CNPN Normal [facility] CNOVSPon 02-12-2024 CNOVSP Normal [facility] CNOVSPon 02-02-2024 CNOVSP Normal [facility] CNPTOUTREACHon 02-02-2024 CNPTOUTREACH Normal [facility] NM PET/CT SKULL-THIGH SUBQon 01-30-2024 NM PET/CT SKULL-THIGH SUBQ Invalid Interpretation Code [facility] CNPNon 01-29-2024 CNPN Normal [facility] Pathology Noteon 01-29-2024 Pathology Note [id number]#1.00TIFF Normal [facility] COMPREHENSIVE METABOLIC PANE Cheng 01-28-2024 Albumin [Mass/Vol] 4.2 g/dL Normal 3.5-5.0 [facility] Comment on above: Order Comment: [place] Performed By: #### C MPN, LDO, URICB #### [facility] (DEFAULT) [address] [place] [address] ALP [Catalytic activity/Vol] 165 U/L High 32-126 [facility] Comment on above: Order Comment: [place] Performed By: #### C MPN, LDO, URICB #### [facility] (DEFAULT) [address] [place] [address] 53324 ALT [Catalytic activity/Vol] 24 U/L Normal 10-52 [facility] Comment on above: Order Comment: [place] Performed By: #### C MPN, LDO, URICB #### [facility] (DEFAULT) [address] [place] [address] 73204 Anion gap [Moles/Vol] 13 mmol/L Normal 7-17 [facility] Comment on above: Order Comment: [place] Performed By: #### C MPN, LDO, URICB #### [facility] (DEFAULT) [address] [place] [address] 39883 AST [Catalytic activity/Vol] 22 U/L Normal 10-39 [facility] Comment on above: Order Comment: [place] Performed By: #### C MPN, LDO, URICB #### [facility] (DEFAULT) [address] [place] [address] 23354 Bilirubin [Mass/Vol] 0.4 mg/dL Normal <1.5 [facility] Comment on above: Order Comment: [place] Performed By: #### C MPN, LDO, URICB #### [facility] (DEFAULT) [address] [place] [address] 66291 Calcium [Mass/Vol] 9.6 mg/dL Normal 8.6-10.5 [facility] Comment on above: Order Comment: [place] Performed By: #### C MPN, LDO, URICB #### [facility] (DEFAULT) [address] [place] [address] 35788 Chloride [Moles/Vol] 107 mmol/L Normal 98-108 [facility] Comment on above: Order Comment: [place] Performed By: #### C MPN, LDO, URICB #### [facility] (DEFAULT) [address] [place] [address] 08078 CO2 [Moles/Vol] 23 mmol/L Normal 21-31 [facility] Comment on above: Order Comment: [place] Performed By: #### C MPN, LDO, URICB #### [facility] (DEFAULT) [address] [place] [address] 51380 Creatinine [Mass/Vol] 1.08 mg/dL Normal 0.70-1.30 [facility] Comment on above: Order Comment: [place] Performed By: #### C MPN, LDO, URICB #### [facility] (DEFAULT) [address] [place] [address] 25311 GFR/1.73 sq M.predicted among non-blacks MDRD (S/P/Bld) [Vol rate/Area] 75 mL/min/{1.73_m2} Normal >=60 [facility] Comment on above: Order Comment: [place] Result Comment: Repo rted eGFR is based on the CKD-EPI 2020 equation using creatinine, age, and sex. Performed By: #### C MPN, LDO, URICB #### [facility] (DEFAULT) [address] [place] [address] 00069 Glucose [Mass/Vol] 135 mg/dL High 70-99 [facility] Comment on above: Order Comment: [place] Performed By: #### C MPN, LDO, URICB #### [facility] (DEFAULT) [address] [place] [address] 46687 Osmolality [Osmolality] 294 mosm/kg Normal 278-305 [facility] Comment on above: Order Comment: [place] Performed By: #### C MPN, LDO, URICB #### [facility] (DEFAULT) [address] [place] [address] 83243 Potassium [Moles/Vol] 3.9 mmol/L Normal 3.5-5.0 [facility] Comment on above: Order Comment: [place] Performed By: #### C MPN, LDO, URICB #### [facility] (DEFAULT) [address] [place] [address] 99921 Protein [Mass/Vol] 7.1 g/dL Normal 6.4-8.3 [facility] Comment on above: Order Comment: [place] Performed By: #### C MPN, LDO, URICB #### [facility] (DEFAULT) [address] [place] [address] 23039 Sodium [Moles/Vol] 139 mmol/L Normal 135-145 [facility] Comment on above: Order Comment: [place] Performed By: #### C MPN, LDO, URICB #### [facility] (DEFAULT) [address] [place] [address] Urea nitrogen [Mass/Vol] 15 mg/dL Normal 7-25 [facility] Comment on above: Order Comment: [place] Performed By: #### C MPN, LDO, URICB #### [facility] (DEFAULT) [address] [place] [address] 83515 Urea nitrogen/Creatinine [Mass ratio] 14 mg/mg Normal [facility] Comment on above: Order Comment: [place] Performed By: #### C MPN, LDO, URICB #### [facility] (DEFAULT) [address] [place] [address] 09617 Albumin [Mass/Vol] 4.2 g/dL 3.5 - 5.0 g/dL [facility] ALP [Catalytic activity/Vol] 165 U/L High 32 - 126 U/L [facility] ALT [Catalytic activity/Vol] 24 U/L 10 - 52 U/L [facility] Anion gap [Moles/Vol] 13 mmol/L 7 - 17 mmol/L [facility] AST [Catalytic activity/Vol] 22 U/L 10 - 39 U/L [facility] Bilirubin [Mass/Vol] 0.4 mg/dL NINF - 1.5 mg/dL [facility] Calcium [Mass/Vol] 9.6 mg/dL 8.6 - 10. 5 mg/dL [facility] Chloride [Moles/Vol] 107 mmol/L 98 - 10 8 mmol/L [facility] CO2 [Moles/Vol] 23 mmol/L 21 - 31 mmol/L [facility] Creatinine [Mass/Vol] 1.08 mg/dL 0.70 - 1.30 mg/dL [facility] eGFR, CKD-EPI, Male 75 - PINF [facility] Comment on above: Reported eGFR is bas ed on the CKD-EPI 2020 equation using creatinine, age, and sex. Glucose [Mass/Vol] 135 mg/dL High 70 - 99 mg/dL [facility] Osmolality Calc [Osmolality] 294 [facility] Potassium [Moles/Vol] 3.9 mmol/L 3.5 - 5.0 mmol/L [facility] Protein [Mass/Vol] 7.1 g/dL 6.4 - 8.3 g/dL [facility] Sodium [Moles/Vol] 139 mmol/L 135 - 145 mmol/L [facility] Urea nitrogen [Mass/Vol] 15 mg/dL 7 - 25 mg/dL [facility] Urea nitrogen/Creatinine [Mass ratio] 14 mg/mg [facility] Chronic hepatitis differenti ation between hepatitis B and C virus panelOrdered By: Nia Mixon on 01-28-2024 HBV core IgG+IgM Ql (S) Negative Negative [facility] HBV surface Ab IA Ql (S) Negative Negative [facility] HBV surface Ag Ql (S) Negative Negative [facility] HCV Ab Ql (S) Negative Negative [facility] Interpretation and review of laboratory results Normal [facility] HEPATITIS BATTERY, CHRONICon 01-28-2024 Hep B Core Ab,Total (IgG+IgM) Negative Normal Negative [facility] Comment on above: Order Comment: [place] Performed By: #### H EP3B #### [facility] (DEFAULT) [address] [place] [address] Hep B Surface Ab Negative Normal Negative [facility] Comment on above: Order Comment: [place] Performed By: #### H EP3B #### [facility] (DEFAULT) [address] [place] [address] 15495 Hepatitis B Surface Ag Negative Normal Negative [facility] Comment on above: Order Comment: [place] Performed By: #### H EP3B #### [facility] (DEFAULT) [address] [place] [address] 60194 Hepatitis C Antibody Negative Normal Negative [facility] Comment on above: Order Comment: [place] Performed By: #### H EP3B #### [facility] (DEFAULT) [address] [place] [address] 47774 HIV 1 AND 2 ANTIBODIES/P24 A NTIGENon 01-28-2024 HIV 1+2 Ab+HIV1 p24 Ag IA Ql Non-Reactive Non Reactive [facility] Interpretation and review of laboratory results Normal [facility] HIV-1/HIV-2 Ab With p24 Antigen Non-Reactive Normal Non Reactive [facility] Comment on above: Order Comment: [place] Performed By: #### L [id number] #### [facility] (DEFAULT) [address] [place] [address] 18733 LACTATE DEHYDROGENASEon 01-02 LD Total 177 U/L Normal 100-190 [facility] Comment on above: Order Comment: [place] Performed By: #### C MPN, LDO, URICB #### [facility] (DEFAULT) [address] [place] [address] 15610 Interpretation and review of laboratory results Normal [facility] LDH Lactate to pyruvate reaction [Catalytic activity/Vol] 177 U/L 100 - 190 U/L [facility] No Panel Informationon 01-27 Interpretation and review of laboratory results Abnormal [facility] URIC ACIDon 01-28-2024 Urate [Mass/Vol] 7.4 mg/dL High 3.5-7.0 [facility] Comment on above: Order Comment: [place] Performed By: #### C MPN, LDO, URICB #### [facility] (DEFAULT) [address] [place] [address] Urate [Mass/Vol] 7.4 mg/dL High 3.5 - 7.0 mg/dL [facility] CNPNon 01-27-2024 CNPN Normal [facility] CNCOon 01-22-2024 CNCO Letter Text Normal [facility] CNCOon 01-21-2024 CNCO Letter Text Normal [facility] CNPNon 01-20-2024 CNPN Normal [facility] CNPNon 01-14-2024 CNPN Normal [facility] Pathology Noteon 01-13-2024 Pathology Note [id number]#1.00TIFF Normal [facility] Pathology Note [id number]#1.00TIFF Normal [facility] Pathology Note [id number]#1.00TIFF Normal [facility] CNOVSPon 01-12-2024 CNOVSP Normal [facility] CNOVSPon 01-05-2024 CNOVSP Normal [facility] Pathology Noteon 12-31-2023 Pathology Note [id number]#1.00TIFF Normal [facility] CNOVon 12-30-2023 CNOV Normal [facility] CNPNon 12-29-2023 CNPN Normal [facility] B2 Microglob SerPl-mCncon Eaht-6-Itnjhzzbidxnr [Mass/Vol] 2.4 ug/mL Normal <3.1 [facility] Comment on above: Order Comment: Speci men Type: BLOOD SPECIMENOrdering Facility: [facility] Address: [address] [place] [address] Result Comment: Beta -2 Microglobulin test is performed using the [employer] immunoturbidimetric method. Results obtained with different methods or kits cannot be used interchangeably. Performed By: #### 1 952-1 ####[facility] LABCLIA [id number] [facility] [place] [address] [place] CBC W Auto Differential pane l (Bld)on 12-25-2023 Basophils (Bld) [#/Vol] 0.05 10*3/uL Normal <0.11 [facility] Comment on above: Order Comment: Speci men Type: BLOOD SPECIMENOrdering Facility: [facility] Address: [address] [place] [address] Performed By: #### 5 7021-8 ####[facility] LABCLIA [id number] [place] [address] Basophils/100 WBC (Bld) 0.9 % Normal [facility] Comment on above: Order Comment: Speci men Type: BLOOD SPECIMENOrdering Facility: [facility] Address: [address] [place] [address] Performed By: #### 5 7021-8 ####[facility] LABCLIA [id number] [place] [address] Differential cell count method Nom (Bld) Auto Normal [facility] Comment on above: Order Comment: Speci men Type: BLOOD SPECIMENOrdering Facility: [facility] Address: [address] [place] [address] Performed By: #### 5 7021-8 ####[facility] LABCLIA [id number] [place] [address] Eosinophils (Bld) [#/Vol] 0.18 10*3/uL Normal <0.46 [facility] Comment on above: Order Comment: Speci men Type: BLOOD SPECIMENOrdering Facility: [facility] Address: [address] [place] [address] Performed By: #### 5 7021-8 ####[facility] LABCLIA [id number] [place] [address] Eosinophils/100 WBC (Bld) 3.2 % Normal [facility] Comment on above: Order Comment: Speci men Type: BLOOD SPECIMENOrdering Facility: [facility] Address: [address] [place] [address] Performed By: #### 5 7021-8 ####[facility] LABCLIA [id number] [place] [address] Erythrocyte distribution width (RBC) [Ratio] 13.3 % Normal 11.5-15.0 [facility] Comment on above: Order Comment: Speci men Type: BLOOD SPECIMENOrdering Facility: [facility] Address: [address] [place] [address] Performed By: #### 5 7021-8 ####[facility] LABCLIA [id number] [place] [address] Hematocrit (Bld) [Volume fraction] 40.3 % Normal 39.0-51.0 [facility] Comment on above: Order Comment: Speci men Type: BLOOD SPECIMENOrdering Facility: [facility] Address: [address] [place] [address] Performed By: #### 5 7021-8 ####[facility] LABCLIA [id number] [place] [address] Hemoglobin (Bld) [Mass/Vol] 14.1 g/dL Normal 13.0-17.0 [facility] Comment on above: Order Comment: Speci men Type: BLOOD SPECIMENOrdering Facility: [facility] Address: [address] [place] [address] Performed By: #### 5 7021-8 ####[facility] LABIA [id number] [place] [address] Immature granulocytes (Bld) [#/Vol] 0.03 10*3/uL Normal <0.10 [facility] Comment on above: Order Comment: Speci men Type: BLOOD SPECIMENOrdering Facility: [facility] Address: [address] [place] [address] Performed By: #### 5 7021-8 ####[facility] LABIA [id number] [place] [address] Immature granulocytes/100 WBC (Bld) 0.5 % Normal [facility] Comment on above: Order Comment: Speci men Type: BLOOD SPECIMENOrdering Facility: [facility] Address: [address] [place] [address] Performed By: #### 5 7021-8 ####[facility] LABCLIA [id number] [place] [address] Lymphocytes (Bld) [#/Vol] 0.61 10*3/uL Low 1.00-4.00 [facility] Comment on above: Order Comment: Speci men Type: BLOOD SPECIMENOrdering Facility: [facility] Address: [address] [place] [address] Performed By: #### 5 7021-8 ####[facility] LABCLIA [id number] [place] [address] Lymphocytes/100 WBC (Bld) 10.9 % Normal [facility] Comment on above: Order Comment: Speci men Type: BLOOD SPECIMENOrdering Facility: [facility] Address: [address] [place] [address] Performed By: #### 5 7021-8 ####[facility] LABCLIA [id number] [place] [address] MCH (RBC) [Entitic mass] 31.8 pg Normal 26.0-34.0 [facility] Comment on above: Order Comment: Speci men Type: BLOOD SPECIMENOrdering Facility: [facility] Address: [address] [place] [address] Performed By: #### 5 7021-8 ####[facility] LABCLIA [id number] [place] [address] MCHC (RBC) [Mass/Vol] 35.0 g/dL Normal 30.5-36.0 [facility] Comment on above: Order Comment: Speci men Type: BLOOD SPECIMENOrdering Facility: [facility] Address: [address] [place] [address] Performed By: #### 5 7021-8 ####[facility] LABCLIA [id number] [place] [address] MCV (RBC) [Entitic vol] 91.0 fL Normal 80.0-100.0 [facility] Comment on above: Order Comment: Speci men Type: BLOOD SPECIMENOrdering Facility: [facility] Address: [address] [place] [address] Performed By: #### 5 7021-8 ####[facility] LABCLIA [id number] [place] [address] Monocytes (Bld) [#/Vol] 1.06 10*3/uL High <0.87 [facility] Comment on above: Order Comment: Speci men Type: BLOOD SPECIMENOrdering Facility: [facility] Address: [address] [place] [address] Performed By: #### 5 7021-8 ####[facility] LABCLIA [id number] [place] [address] Monocytes/100 WBC (Bld) 19.0 % Normal [facility] Comment on above: Order Comment: Speci men Type: BLOOD SPECIMENOrdering Facility: [facility] Address: [address] [place] [address] Performed By: #### 5 7021-8 ####[facility] LABCLIA [id number] [place] [address] Neutrophils (Bld) [#/Vol] 3.66 10*3/uL Normal 1.45-7.50 [facility] Comment on above: Order Comment: Speci men Type: BLOOD SPECIMENOrdering Facility: [facility] Address: [address] [place] [address] Performed By: #### 5 7021-8 ####[facility] LABCLIA [id number] [place] [address] Neutrophils/100 WBC (Bld) 65.5 % Normal [facility] Comment on above: Order Comment: Speci men Type: BLOOD SPECIMENOrdering Facility: [facility] Address: [address] [place] [address] Performed By: #### 5 7021-8 ####[facility] LABCLIA [id number] [place] [address] Nucleated RBC (Bld) [#/Vol] 10*3/uL Normal <0.01 [facility] Comment on above: Order Comment: Speci men Type: BLOOD SPECIMENOrdering Facility: [facility] Address: [address] [place] [address] Performed By: #### 5 7021-8 ####[facility] LABCLIA [id number] [place] [address] Nucleated RBC/100 WBC (Bld) [Ratio] 0.0 /100 WBC Normal [facility] Comment on above: Order Comment: Speci men Type: BLOOD SPECIMENOrdering Facility: [facility] Address: [address] [place] [address] Performed By: #### 5 7021-8 ####[facility] LABCLIA [id number] [place] [address] Platelet mean volume (Bld) [Entitic vol] 9.5 fL Normal 9.0-12.7 [facility] Comment on above: Order Comment: Speci men Type: BLOOD SPECIMENOrdering Facility: [facility] Address: [address] [place] [address] Performed By: #### 5 7021-8 ####[facility] LABCLIA [id number] [place] [address] Platelets (Bld) [#/Vol] 216 10*3/uL Normal 150-400 [facility] Comment on above: Order Comment: Speci men Type: BLOOD SPECIMENOrdering Facility: [facility] Address: [address] [place] [address] Performed By: #### 5 7021-8 ####[facility] LABCLIA [id number] [place] [address] RBC (Bld) [#/Vol] 4.43 10*6/uL Normal 4.20-6.00 [facility] Comment on above: Order Comment: Speci men Type: BLOOD SPECIMENOrdering Facility: THE [facility] Address: [address] [place] [address] Performed By: #### 5 7021-8 ####[facility] LABCLIA [id number] [place] [address] WBC (Bld) [#/Vol] 5.59 10*3/uL Normal 3.70-11.00 [facility] Comment on above: Order Comment: Speci men Type: BLOOD SPECIMENOrdering Facility: [facility] Address: [address] [place] [address] Performed By: #### 5 7021-8 ####[facility] LABIA [id number] [place] [address] Basophils (Bld) [#/Vol] 0.05 10*3/uL <0.11 k/uL [facility] Basophils/100 WBC (Bld) 0.9 % [facility] Differential cell count method Nom (Bld) Auto [facility] Eosinophils (Bld) [#/Vol] 0.18 10*3/uL <0.46 k/uL [facility] Eosinophils/100 WBC (Bld) 3.2 % [facility] Erythrocyte distribution width (RBC) [Ratio] 13.3 % 11.5 - 15.0 % [facility] Hematocrit (Bld) [Volume fraction] 40.3 % 39.0 - 51.0 % [facility] Hemoglobin (Bld) [Mass/Vol] 14.1 g/dL 13.0 - 17.0 g/dL [facility] Immature granulocytes (Bld) [#/Vol] 0.03 10*3/uL <0.10 k/uL [facility] Immature granulocytes/100 WBC (Bld) 0.5 % [facility] Lymphocytes (Bld) [#/Vol] 0.61 10*3/uL Low 1.00 - 4.00 k/uL [facility] Lymphocytes/100 WBC (Bld) 10.9 % [facility] MCH (RBC) [Entitic mass] 31.8 pg 26.0 - 34.0 pg [facility] MCHC (RBC) [Mass/Vol] 35.0 g/dL 30.5 - 36.0 g/dL [facility] MCV (RBC) [Entitic vol] 91.0 fL 80.0 - 100.0 fL [facility] Monocytes (Bld) [#/Vol] 1.06 10*3/uL High <0.87 k/uL [facility] Monocytes/100 WBC (Bld) 19.0 % [facility] Neutrophils (Bld) [#/Vol] 3.66 10*3/uL 1.45 - 7.50 k/uL [facility] Neutrophils/100 WBC (Bld) 65.5 % [facility] Nucleated RBC (Bld) [#/Vol] <0.01 k/uL [facility] Nucleated RBC/100 WBC (Bld) [Ratio] 0.0 /100 WBC [facility] Platelet mean volume (Bld) [Entitic vol] 9.5 fL 9.0 - 12.7 fL [facility] Platelets (Bld) [#/Vol] 216 10*3/uL 150 - 400 k/uL [facility] RBC (Bld) [#/Vol] 4.43 10*6/uL 4.20 - 6.00 m/uL [facility] WBC (Bld) [#/Vol] 5.59 10*3/uL 3.70 - 11.00 k/uL [facility] CNOVSPon 12-25-2023 CNOVSP Normal [facility] Comprehensive metabolic 2000 panelon 12-25-2023 Albumin [Mass/Vol] 4.4 g/dL Normal 3.9-4.9 [facility] Comment on above: Order Comment: Speci men Type: BLOOD SPECIMENOrdering Facility: [facility] Address: [address] [place] [address] Performed By: #### 2 532-0, 46797-0 ####[facility] LABCLIA [id number] [place] [address] ALP [Catalytic activity/Vol] 204 U/L High 38-113 [facility] Comment on above: Order Comment: Speci men Type: BLOOD SPECIMENOrdering Facility: [facility] Address: [address] [place] [address] Performed By: #### 2 532-0, 67939-6 ####[facility] LABCLIA [id number] [place] [address] ALT [Catalytic activity/Vol] 30 U/L Normal 10-54 [facility] Comment on above: Order Comment: Speci men Type: BLOOD SPECIMENOrdering Facility: [facility] Address: [address] [place], [place] [address] Performed By: #### 2 532-0, 53819-5 ####[facility] LABCLIA [id number] [place] [address] Anion gap [Moles/Vol] 10 mmol/L Normal 9-18 [facility] Comment on above: Order Comment: Speci men Type: BLOOD SPECIMENOrdering Facility: [facility] Address: [address] [place] [address] Performed By: #### 2 532-0, 78991-7 ####[facility] LABCLIA [id number] [place] [address] AST [Catalytic activity/Vol] 22 U/L Normal 14-40 [facility] Comment on above: Order Comment: Speci men Type: BLOOD SPECIMENOrdering Facility: [facility] Address: [address] [id number] Performed By: #### 2 532-0, 34403-1 ####[facility] LABCLIA [id number] [place] [address] Bilirubin [Mass/Vol] 0.3 mg/dL Normal 0.2-1.3 [facility] Comment on above: Order Comment: Speci men Type: BLOOD SPECIMENOrdering Facility: [facility] Address: [address] [place], [place] [address] Performed By: #### 2 532-0, 14287-3 ####[facility] LABCLIA [id number] [place] [address] Calcium [Mass/Vol] 10.2 mg/dL Normal 8.5-10.2 [facility] Comment on above: Order Comment: Speci men Type: BLOOD SPECIMENOrdering Facility: [facility] Address: [address] [place] [address] Performed By: #### 2 532-0, 86333-3 ####[facility] LABCLIA [id number] [place] [address] Chloride [Moles/Vol] 101 mmol/L Normal 97-105 [facility] Comment on above: Order Comment: Speci men Type: BLOOD SPECIMENOrdering Facility: [facility] Address: [address] [place] [address] Performed By: #### 2 532-0, 61615-1 ####[facility] LABCLIA [id number] [place] [address] CO2 [Moles/Vol] 25 mmol/L Normal 22-30 [facility] Comment on above: Order Comment: Speci men Type: BLOOD SPECIMENOrdering Facility: [facility] Address: [address] [place] [address] Performed By: #### 2 532-0, 72368-2 ####[facility] LABCLIA [id number] [place] [address] Creatinine [Mass/Vol] 1.10 mg/dL Normal 0.73-1.22 [facility] Comment on above: Order Comment: Speci men Type: BLOOD SPECIMENOrdering Facility: [facility] Address: [address] [place] [address] Performed By: #### 2 532-0, 02273-6 ####[facility] LABCLIA [id number] [place] [address] Creatinine and Glomerular filtration rate.predicted panel (S/P/Bld) 74 mL/min/1.73m??? Normal >=60 [facility] Comment on above: Order Comment: Sara randle Type: BLOOD SPECIMENOrdering Facility: [facility] Address: [address] [place] [address] Result Comment: Carol mated Glomerular Filtration Rate [...] actual GFR. Performed By: #### 2 532-0, 41917-1 ####[facility] LABIA [id number] [place] [address] Glucose [Mass/Vol] 96 mg/dL Normal 74-99 [facility] Comment on above: Order Comment: Sara randle Type: BLOOD SPECIMENOrdering Facility: [facility] Address: [address] [place] [address] Result Comment: The [place] [employer] (ADA) provides guidance for cutoff [...] Standards of Medical Care in Diabetes 2016, [place] [employer]. Diabetes Care. 2016.39(Suppl 1). Performed By: #### 2 532-0, 67267-0 ####[facility] LABIA [id number] [place] [address] Potassium [Moles/Vol] 4.1 mmol/L Normal 3.7-5.1 [facility] Comment on above: Order Comment: Sara randle Type: BLOOD SPECIMENOrdering Facility: [facility] Address: [address] [id number] Performed By: #### 2 532-0, 19154-7 ####[facility] LABCLIA [id number] [place] [address] Protein [Mass/Vol] 7.6 g/dL Normal 6.3-8.0 [facility] Comment on above: Order Comment: Speci men Type: BLOOD SPECIMENOrdering Facility: [facility] Address: [address] [place] [address] Performed By: #### 2 532-0, 08288-4 ####[facility] LABCLIA [id number] [place] [address] Sodium [Moles/Vol] 136 mmol/L Normal 136-144 [facility] Comment on above: Order Comment: Speci men Type: BLOOD SPECIMENOrdering Facility: [facility] Address: [address] [place] [address] Performed By: #### 2 532-0, 15098-4 ####[facility] LABCLIA [id number] [place] [address] Urea nitrogen [Mass/Vol] 16 mg/dL Normal 9-24 [facility] Comment on above: Order Comment: Speci men Type: BLOOD SPECIMENOrdering Facility: [facility] Address: [address] [place] [address] Performed By: #### 2 532-0, 08153-5 ####[facility] LABCLIA [id number] [place] [address] Albumin [Mass/Vol] 4.4 g/dL 3.9 - 4.9 g/dL [facility] ALP [Catalytic activity/Vol] 204 U/L High 38 - 113 U/L [facility] ALT [Catalytic activity/Vol] 30 U/L 10 - 54 U/L [facility] Anion gap [Moles/Vol] 10 mmol/L 9 - 18 mmol/L [facility] AST [Catalytic activity/Vol] 22 U/L 14 - 40 U/L [facility] Bilirubin [Mass/Vol] 0.3 mg/dL 0.2 - 1 .3 mg/dL [facility] Calcium [Mass/Vol] 10.2 mg/dL 8.5 - 10. 2 mg/dL [facility] Chloride [Moles/Vol] 101 mmol/L 97 - 10 5 mmol/L [facility] CO2 [Moles/Vol] 25 mmol/L 22 - 30 mmol/L [facility] Creatinine [Mass/Vol] 1.10 mg/dL 0.73 - 1.22 mg/dL [facility] Estimated Glomerular Filtration Rate 74 mL/min/1.73m >=60 mL/min/1.7 3m [facility] Glucose [Mass/Vol] 96 mg/dL 74 - 99 mg/dL [facility] Potassium [Moles/Vol] 4.1 mmol/L 3.7 - 5.1 mmol/L [facility] Protein [Mass/Vol] 7.6 g/dL 6.3 - 8.0 g/dL [facility] Sodium [Moles/Vol] 136 mmol/L 136 - 144 mmol/L [facility] Urea nitrogen [Mass/Vol] 16 mg/dL 9 - 24 mg/dL [facility] LDH SerPl-cCncon 12-25-2023 LDH [Catalytic activity/Vol] 182 U/L Normal 135-225 [facility] Comment on above: Order Comment: Speci men Type: BLOOD SPECIMENOrdering Facility: [facility] Address: [address] [place] [address] Performed By: #### 2 532-0, 06158-2 ####[facility] LABCLIA [id number] [place] [address] Laboratory - Chemistry and C hemistry - challengeon 12-25-2023 LDH [Catalytic activity/Vol] 182 U/L 135 - 225 U/L [facility] Ambulatory Visit Summaryon 0 12-24-2023 Ambulatory Visit Summary KATIA SHAIKH Mk :1955 Visit Date:12/24/2023 Ambulatory Visit Instructions Your Care Team Attending Physician - MIGUEL LOFTON, Chiquita Martins Primary Care Physician - SANDRA LOFTON, EMELIA This Is Your Medications List levothyroxine (levothyroxine 125 mcg (0.125 mg) Tab) multivitamin (Multi Vitamins oral tablet) omega-3 polyunsaturated fatty acids (Fish Oil) Procedures Performed Excision of inguinal lymph nodes (12/17/2023), Insertion of implantable venous access port (05/28/2023), Biopsy of inguinal lymph node (05/07/2023), Thoracentesis (01/28/2002), Bronchoscopy (01/20/2002), Biopsy of lymph node. Medications What How Much When Instructions Unchanged levothyroxine (levothyroxine 125 mcg (0.125 mg) Tab) 1 Tablets By Mouth Every day Unchanged multivitamin (Multi Vitamins oral tablet) 1 Tablets By Mouth Every day Unchanged omega-3 polyunsaturated fatty acids (Fish Oil) as directed Allergies allopurinol Problems Ongoing - Any problem that you are currently receiving treatment for. BMI 26.0-26.9,adult Diffuse large B-cell lymphoma Encounter for care related to Port-a-Cath GERD (gastroesophageal reflux disease) Hypothyroidism Inguinal adenopathy Inguinal mass Overweight Patient Survey You may receive a survey via text or e-mail asking about your office visit. Please share your experience with us by completing your survey. We appreciate your feedback and thank you for choosing us for your care. Normal [facility] FISH FOR AGGRESSIVE B-CELL L [facility] 12-24-2023 FISH FOR AGGRESSIVE B-CELL LYMPHOMA Normal [facility] Comment on above: Order Comment: Speci men Type: FORMALIN-FIXED PARAFFIN-EMBEDDED TISSUE SPECIMENOrdering Facility: Outside Review Address: , , Result Comment: FISH for Aggressive B-cell Lymphoma TissueLaboratory Accession Number: [id number]: [id number]/Part ID: [id number] ([id number])Sample Type: FFPETSample Description: Right inguinal lymph node, excisional biopsyReceived Date: 2024-01-05 18:48:41Number of nuclei scored: 200 per testRESULT: Result Reference RangeBCL6 Rearrangement 67% (0-9%)MYC Rearrangement 3% (0-11%)MYC/IGH 0% (0-7%)BCL2 Rearrangement 1% (0-5%)INTERPRETATION:These results demonstrate the presence of a BCL6 rearrangement. MYCand/or BCL2 rearrangements are not identified. BCL6 translocations andother rearrangements may be seen in diffuse large B-cell lymphoma,follicular lymphoma, or other B-cell non-Hodgkin lymphomas. More thana dozen BCL6 translocation partner genes have been identified.Metaphase cytogenetic analysis may be helpful in further evaluation,if clinically indicated. Clinical and pathologic correlation isrecommended.There is a 34% gain (3 to 5 copies) of the BCL2 (18q21) gene region.Nomenclature: nuc arabella(BCL6x2)(3'BCL6 sep 5'BCL6x1)[134/200],(D8Z1,MYC,IGH)x2[197/200],(MYCx2)[149/200],(B CL2x3~5)[68/200]METHODOLOGY:Interphase fluorescence in situ hybridization analysis was performedusing the following probes ([employer], [place], [place]): LSI MYCdual color, break-apart rearrangement probes, LSI IGH/MYC/FOW4dfefhyyn, dual fusion probes, LSI BCL2 dual color, break-apartrearrangement probes, and LSI BCL6 dual color, break-apartrearrangement probes.DISCLAIMER:This test was developed and its performance characteristics determinedby the [facility]'s [facility] [place] ([facility]). It has not been cleared or approved bythe FDA. [facility] is regulated under CLIA as qualified to perform high-complexity testing. This test is used for clinical purposes. It shouldnot be regarded as investigational or for research[place] [address]. CLIA Number: [id number] reviewed by Chiquita Clemente MD, PhD Performed By: #### F ABCEL ####[facility] LIMSCLIA [id number] [address] OF [facility]#### [id number] ####[facility] LABCLIA [id number] [place] [address] [place] General Surgery Office/Clini c Noteon 12-24-2023 General Surgery Office/Clinic Note Chief Complaint post operative follow up HPI Staff 7 day post operative follow up post excision right inguinal lymph node. Reports minimal soreness, no use of pain medication. Denies bleeding or drainage. History of Present Illness 1 week s/p excisional biopsy of enlarged right inguinal node, h/o known lymphoma; path consistent with B cell lymphoma, sent to [facility] for further review; patient sees Oncology tomorrow; mild soreness, no drainage. Review of Systems ROS - Provider Constitutional: [...] incision healing well, no erythema or drainage, no ecchymosis; minimal induration. Assessment/Plan 1. Diffuse large B-cell lymphoma (C83.30: Diffuse large B-cell lymphoma, unspecified site) doing well; keep incision clean and dry; call with problems/questions. Follow-up With When Contact Information MIGUEL LOFTON, TERRELL Kirk Only if needed [address] [place] [address]- Additional Instructions: Problem List/Past Medical History Ongoing BMI 26.0-26.9,adult Diffuse large B-cell lymphoma Encounter for care related to Port-a-Cath GERD (gastroesophageal reflux disease) Hypothyroidism Inguinal adenopathy Inguinal mass Overweight Historical No qualifying data Procedure/Surgical History Excision of inguinal lymph nodes (12/17/2023), Insertion of implantable venous access port (05/28/2023), [...] virus vaccine, inactivated - Not Given Patient Refuses Normal [facility] Comment on above: Result Comment: Elec tronically Signed By: MIGUEL LOFTON, Chiquita Mas\Date and Time Signed: 12/24/23 20:33 EST OUTSIDE SURG PATH SLIDE REVI EWon 12-24-2023 ADDENDUM 1: Normal [facility] Comment on above: Order Comment: Speci men Type: FORMALIN-FIXED PARAFFIN-EMBEDDED TISSUE SPECIMENOrdering Facility: AP Outside Review Address: , , Result Comment: Aggr essive B-Cell Neoplasm Biomarker [id number] ICC Diagnosis: Diffuse large B-cell lymphoma, NOSBiomarker Results:Cell of origin (Landry radar systems engineer): Germinal centerMYC expression (% tumor cells by IHC): 20%BCL2 expression (% tumor cells by IHC): 90%Ki67 expression (% tumor cells by IHC): 70-80%BCL2 translocation (FISH): NegativeBCL6 translocation (FISH): PositiveMYC translocation (FISH): Negative IGH::MYC translocation (FISH): NegativeAddendum electronically signed by Chioma Pineda DO on 01/08/2024 at 8:48 AM Performed By: #### F ABCEL ####[facility] LIMSCLIA [id number] [address] [place]#### [id number] ####[facility] LABCLIA [id number] [place] [id number] [facility] [place] CASE REPORT Normal [facility] Comment on above: Order Comment: Speci men Type: FORMALIN-FIXED PARAFFIN-EMBEDDED TISSUE SPECIMENOrdering Facility: AP Outside Review Address: , , Result Comment: Surg ical Pathology Report Case: [id number] Provider: Michael Boykin MD Collected: 12/24/2023 08:50 AMOrdering Location: [facility] Main Received: 12/24/2023 08:49 AM [facility] LaboratoryPathologist: Chioma Pineda DOSpecimen: SLIDE(S), 26 SLIDES [id number] Performed By: #### F ABCEL ####[facility] LIMSCA [id number] [address]#### [id number] ####[facility] LABCLIA [id number] [address] DIAGNOSIS COMMENT Normal [facility] Comment on above: Order Comment: Speci men Type: FORMALIN-FIXED PARAFFIN-EMBEDDED TISSUE SPECIMENOrdering Facility: AP Outside Review Address: , , Result Comment: The combined morphologic and immunophenotypic findings demonstrate involvement by a diffuse aggressive large B-cell lymphoma. Due to issues with fixation, Landry algorithm immunophenotyping may be unreliable. FISH studies are pending. The history of follicular lymphoma, grade 3A is noted. Correlation of the clinical findings is suggested.Flow cytometry identifies an abnormal B-cell population, identifies an abnormal B-cell population, representing 90% of events, positive for CD10 (dim), CD19, CD20 (variable), and monotypic kappa surface immunoglobulin.Laboratory Developed Test (LDT) Disclaimer:Performance characteristics of immunohistochemical, immunofluorescent and chromogenic in-situ hybridization tests have been determined by the performing laboratory within [facility]???s [facility] [place] ([facility], [facility], [facility], [facility], [facility], [facility], or [facility]) in a manner consistent with CLIA requirements. One or more of these tests have not been cleared or approved by the FDA. [facility] is regulated under CLIA as qualified to perform high-complexity testing. These tests are used for clinical purposes. They should not be regarded as investigational or for research. Positive and negative controls stain appropriately. Performed By: #### F ABCEL ####[facility] LIMSCLIA [id number] [address] [place]#### [id number] ####[facility] LABCLIA [id number] [address] STATES [facility] FINAL DIAGNOSIS Normal [facility] Comment on above: Order Comment: Speci men Type: FORMALIN-FIXED PARAFFIN-EMBEDDED TISSUE SPECIMENOrdering Facility: [facility] Outside Review Address: , , Result Comment: Outs remi slides from [facility], [place], [place], labeled [id number], collected 12/17/2023:A-B. Right inguinal lymph node, excisional biopsies:-Aggressive large B-cell lymphoma, favor germinal center immunophenotype Performed By: #### F ABCEL ####[facility] LIMSCLIA [id number] [place] [address] [place] [facility]#### [id number] ####[facility] LABCLIA [id number] [address] FINAL PERFORMING LAB Normal [facility] Comment on above: Order Comment: Speci men Type: FORMALIN-FIXED PARAFFIN-EMBEDDED TISSUE SPECIMENOrdering Facility: AP Outside Review Address: , , Result Comment: Diag nostic interpretation performed at [facility], [facility] [place] [address] CLIA# [id number] Director: Lon Kaiser M.D. Performed By: #### F ABCEL ####[facility] LIMSCLIA [id number] [place] [address] [place]#### [id number] ####[facility] LABCLIA [id number] [place] [address] [place] MICROSCOPIC DESCRIPTION Normal [facility] Comment on above: Order Comment: Speci men Type: FORMALIN-FIXED PARAFFIN-EMBEDDED TISSUE SPECIMENOrdering Facility: Outside Review Address: , , Result Comment: Hist ologic sections demonstrate multiple sections of effaced lymph node by a diffuse proliferation of large, somewhat ovoid transformed lymphocytes with multiple nucleoli. Immunohistochemistry performed on block A5 is reviewed. The lymphoma cells are positive for CD20, PAX5, CD43, and Bcl-2, and demonstrate a Ki-67 proliferative index of 70-80%. CD10 and BCL6 each stain on small minor subset of the lymphocytes in the best preserved areas. CD5 is negative. CD21 and CD23 do not highlight follicular dendritic cell meshworks. CD30, CD138, and cyclin D1 are negative. CD3 stains the T cells.Additional immunohistochemistry is performed on deeper sections of tissue block A5 at [facility]. The lymphoma cells are positive for CD10 (minor subset, in the best preserved area) and MUM1, and are negative for MYC, S100, and JAVID by in situ hybridization. Performed By: #### F ABCEL ####[facility] LIMSCLIA [id number] [place] [address] [place]#### [id number] ####[facility] LABCLIA [id number] [place] [id number] [place] Pathology Noteon 12-24-2023 Pathology Note [id number]#1.00TIFF Normal [facility] Operative Reporton Operative Report [id number]#1.00TIFF Normal [facility] CNPNon 12-22-2023 CNPN Normal [facility] Pathology Noteon 12-22-2023 Pathology Note [id number]#1.00TIFF Normal [facility] CNPNon 12-15-2023 CNPN Normal [facility] ECG 12-Leadon 12-15-2023 ECG 12-Lead [id number]#1.00TIFF Normal [facility] Consent for Procedure/Surger yon 12-11-2023 Consent for Procedure/Surgery [id number]#1.00TIFF Normal [facility] Ambulatory Visit Summaryon 0 12-09-2023 Ambulatory Visit Summary KATIA SHAIKH :1955 Visit Date:12/09/2023 Ambulatory Visit Instructions Your Care Team Attending Physician - MIGUEL LOFTON, Chiquita Martins Primary Care Physician - SANDRA LOFTON, [...] you for choosing us for your care. Madelyn [facility] RAD - Nuclear Medicine Repor ton 12-09-2023 RAD - Nuclear Medicine Report [id number]#1.00TIFF Normal [facility] RAD - Ultrasound Reporton RAD - Ultrasound Report [id number]#1.00TIFF Normal [facility] CNPNon 12-01-2023 CNPN Normal [facility] RAD - Ultrasound Reporton RAD - Ultrasound Report [id number]#1.00TIFF Normal [facility] CNPNon 11-24-2023 CNPN Normal [facility] Physician Referralon 024 Physician Referral [id number]#1.00TIFF Normal [facility] CNOVSPon 11-20-2023 CNOVSP Normal [facility] CNPNon 11-20-2023 CNPN Normal [facility] CNPNon 11-19-2023 CNPN Normal [facility] CBC W Auto Differential pane l (Bld)on 11-18-2023 Basophils (Bld) [#/Vol] 0.05 10*3/uL Normal <0.11 [facility] Comment on above: Order Comment: Speci men Type: BLOOD SPECIMENOrdering Facility: [facility] Address: [address] [place] [address] Performed By: #### 5 7021-8 ####[facility] LABCLIA [id number] [place] [address] Basophils/100 WBC (Bld) 1.5 % Normal [facility] Comment on above: Order Comment: Speci men Type: BLOOD SPECIMENOrdering Facility: [facility] Address: [address] [place] [address] Performed By: #### 5 7021-8 ####[facility] LABCLIA [id number] [place] [address] Differential cell count method Nom (Bld) Auto Normal [facility] Comment on above: Order Comment: Speci men Type: BLOOD SPECIMENOrdering Facility: [facility] Address: [address] [place] [address] Performed By: #### 5 7021-8 ####[facility] LABCLIA [id number] [place] [address] Eosinophils (Bld) [#/Vol] 0.16 10*3/uL Normal <0.46 [facility] Comment on above: Order Comment: Speci men Type: BLOOD SPECIMENOrdering Facility: [facility] Address: [address] [place] [address] Performed By: #### 5 7021-8 ####[facility] LABCLIA [id number] [place] [address] Eosinophils/100 WBC (Bld) 4.8 % Normal [facility] Comment on above: Order Comment: Speci men Type: BLOOD SPECIMENOrdering Facility: [facility] Address: [address] [place] [address] Performed By: #### 5 7021-8 ####[facility] LABCLIA [id number] [place] [address] Erythrocyte distribution width (RBC) [Ratio] 14.1 % Normal 11.5-15.0 [facility] Comment on above: Order Comment: Speci men Type: BLOOD SPECIMENOrdering Facility: [facility] Address: [address] [place] [address] Performed By: #### 5 7021-8 ####[facility] LABCLIA [id number] [place] [address] Hematocrit (Bld) [Volume fraction] 41.5 % Normal 39.0-51.0 [facility] Comment on above: Order Comment: Speci men Type: BLOOD SPECIMENOrdering Facility: [facility] Address: [address] [place] [address] Performed By: #### 5 7021-8 ####[facility] LABCLIA [id number] [place] [address] Hemoglobin (Bld) [Mass/Vol] 14.6 g/dL Normal 13.0-17.0 [facility] Comment on above: Order Comment: Speci men Type: BLOOD SPECIMENOrdering Facility: [facility] Address: [address] [place] [address] Performed By: #### 5 7021-8 ####[facility] LABCLIA [id number] [place] [address] Immature granulocytes (Bld) [#/Vol] 10*3/uL Normal <0.10 [facility] Comment on above: Order Comment: Speci men Type: BLOOD SPECIMENOrdering Facility: [facility] Address: [address] [place] [address] Performed By: #### 5 7021-8 ####[facility] LABCLIA [id number] [place] [address] Immature granulocytes/100 WBC (Bld) 0.6 % Normal [facility] Comment on above: Order Comment: Speci men Type: BLOOD SPECIMENOrdering Facility: [facility] Address: [address] [place] [address] Performed By: #### 5 7021-8 ####[facility] LABCLIA [id number] [place] [address] Lymphocytes (Bld) [#/Vol] 0.32 10*3/uL Low 1.00-4.00 [facility] Comment on above: Order Comment: Speci men Type: BLOOD SPECIMENOrdering Facility: [facility] Address: [address] [place] [address] Performed By: #### 5 7021-8 ####[facility] LABCLIA [id number] [place] [address] Lymphocytes/100 WBC (Bld) 9.5 % Normal [facility] Comment on above: Order Comment: Speci men Type: BLOOD SPECIMENOrdering Facility: [facility] Address: [address] [place] [address] Performed By: #### 5 7021-8 ####[facility] LABCLIA [id number] [place] [address] MCH (RBC) [Entitic mass] 31.9 pg Normal 26.0-34.0 [facility] Comment on above: Order Comment: Speci men Type: BLOOD SPECIMENOrdering Facility: [facility] Address: [address] [place] [address] Performed By: #### 5 7021-8 ####[facility] LABCLIA [id number] [place] [address] MCHC (RBC) [Mass/Vol] 35.2 g/dL Normal 30.5-36.0 [facility] Comment on above: Order Comment: Speci men Type: BLOOD SPECIMENOrdering Facility: [facility] Address: [address] [place] [address] Performed By: #### 5 7021-8 ####[facility] LABCLIA [id number] [place] [address] MCV (RBC) [Entitic vol] 90.8 fL Normal 80.0-100.0 [facility] Comment on above: Order Comment: Speci men Type: BLOOD SPECIMENOrdering Facility: [facility] Address: [address] [place] [address] Performed By: #### 5 7021-8 ####[facility] LABCLIA [id number] [place] [address] Monocytes (Bld) [#/Vol] 0.62 10*3/uL Normal <0.87 [facility] Comment on above: Order Comment: Speci men Type: BLOOD SPECIMENOrdering Facility: [facility] Address: [address] [place] [address] Performed By: #### 5 7021-8 ####[facility] LABCLIA [id number] [place] [address] Monocytes/100 WBC (Bld) 18.5 % Normal [facility] Comment on above: Order Comment: Speci men Type: BLOOD SPECIMENOrdering Facility: [facility] Address: [address] [place] [address] Performed By: #### 5 7021-8 ####[facility] LABCLIA [id number] [place] [address] Neutrophils (Bld) [#/Vol] 2.19 10*3/uL Normal 1.45-7.50 [facility] Comment on above: Order Comment: Speci men Type: BLOOD SPECIMENOrdering Facility: [facility] Address: [address] [place] [address] Performed By: #### 5 7021-8 ####[facility] LABCLIA [id number] [place] [address] Neutrophils/100 WBC (Bld) 65.1 % Normal [facility] Comment on above: Order Comment: Speci men Type: BLOOD SPECIMENOrdering Facility: [facility] Address: [address] [place] [address] Performed By: #### 5 7021-8 ####[facility] LABCLIA [id number] [place] [address] Nucleated RBC (Bld) [#/Vol] 10*3/uL Normal <0.01 [facility] Comment on above: Order Comment: Speci men Type: BLOOD SPECIMENOrdering Facility: [facility] Address: [address] [place] [address] Performed By: #### 5 7021-8 ####[facility] LABCLIA [id number] [place] [address] Nucleated RBC/100 WBC (Bld) [Ratio] 0.0 /100 WBC Normal [facility] Comment on above: Order Comment: Speci men Type: BLOOD SPECIMENOrdering Facility: [facility] Address: [address] [place] [address] Performed By: #### 5 7021-8 ####[facility] LABCLIA [id number] [place] [address] Platelet mean volume (Bld) [Entitic vol] 9.5 fL Normal 9.0-12.7 [facility] Comment on above: Order Comment: Speci men Type: BLOOD SPECIMENOrdering Facility: [facility] Address: [address] [place] [address] Performed By: #### 5 7021-8 ####[facility] LABCLIA [id number] [place] [address] Platelets (Bld) [#/Vol] 184 10*3/uL Normal 150-400 [facility] Comment on above: Order Comment: Speci men Type: BLOOD SPECIMENOrdering Facility: [facility] Address: [address] [place] [address] Performed By: #### 5 7021-8 ####[facility] LABCLIA [id number] [place] [address] RBC (Bld) [#/Vol] 4.57 10*6/uL Normal 4.20-6.00 [facility] Comment on above: Order Comment: Speci men Type: BLOOD SPECIMENOrdering Facility: [facility] Address: [address] [place] [address] Performed By: #### 5 7021-8 ####[facility] LABCLIA [id number] [place] [address] WBC (Bld) [#/Vol] 3.36 10*3/uL Low 3.70-11.00 [facility] Comment on above: Order Comment: Speci men Type: BLOOD SPECIMENOrdering Facility: [facility] Address: [address] [place] [address] Performed By: #### 5 7021-8 ####[facility] LABCLIA [id number] [place] [address] Comprehensive metabolic 2000 panelon 11-18-2023 Albumin [Mass/Vol] 4.5 g/dL Normal 3.9-4.9 [facility] Comment on above: Order Comment: Speci men Type: BLOOD SPECIMENOrdering Facility: [facility] Address: [address] [place] [address] Performed By: #### 2 4323-8, 3083- ####[facility] LABCLIA [id number] [place] [address] ALP [Catalytic activity/Vol] 171 U/L High 38-113 [facility] Comment on above: Order Comment: Speci men Type: BLOOD SPECIMENOrdering Facility: [facility] Address: [address] [place] [address] Performed By: #### 2 4323-8, 3083- ####[facility] LABCLIA [id number] [place] [address] ALT [Catalytic activity/Vol] 19 U/L Normal 10-54 [facility] Comment on above: Order Comment: Speci men Type: BLOOD SPECIMENOrdering Facility: [facility] Address: [address] [place] [address] Performed By: #### 2 4323-8, 3083-11 ####[facility] LABCLIA [id number] [place] [address] Anion gap [Moles/Vol] 11 mmol/L Normal 9-18 [facility] Comment on above: Order Comment: Speci men Type: BLOOD SPECIMENOrdering Facility: [facility] Address: [address] [place] [address] Performed By: #### 2 4323-8, 3083-11 ####[facility] LABCLIA [id number] [place] [address] AST [Catalytic activity/Vol] 21 U/L Normal 14-40 [facility] Comment on above: Order Comment: Speci men Type: BLOOD SPECIMENOrdering Facility: [facility] Address: [address] [place] [address] Performed By: #### 2 4323-8, 3083- ####[facility] LABCLIA [id number] [place] [address] Bilirubin [Mass/Vol] 0.2 mg/dL Normal 0.2-1.3 [facility] Comment on above: Order Comment: Speci men Type: BLOOD SPECIMENOrdering Facility: [facility] Address: [address] [place] [address] Performed By: #### 2 4323-8, 3083- ####[facility] LABCLIA [id number] [place] [address] Calcium [Mass/Vol] 9.8 mg/dL Normal 8.5-10.2 [facility] Comment on above: Order Comment: Speci men Type: BLOOD SPECIMENOrdering Facility: [facility] Address: [address] [place] [address] Performed By: #### 2 4323-8, 3083- ####[facility] LABCLIA [id number] [place] [address] Chloride [Moles/Vol] 107 mmol/L High 97-105 [facility] Comment on above: Order Comment: Speci men Type: BLOOD SPECIMENOrdering Facility: [facility] Address: [address] [place] [address] Performed By: #### 2 4323-8, 3083- ####[facility] LABCLIA [id number] [place] [address] CO2 [Moles/Vol] 25 mmol/L Normal 22-30 [facility] Comment on above: Order Comment: Speci men Type: BLOOD SPECIMENOrdering Facility: [facility] Address: [address] [place] [address] Performed By: #### 2 4323-8, 308- ####[facility] LABCLIA [id number] [place] [address] Creatinine [Mass/Vol] 0.96 mg/dL Normal 0.73-1.22 [facility] Comment on above: Order Comment: Speci men Type: BLOOD SPECIMENOrdering Facility: [facility] Address: [address] [id number] Performed By: #### 2 4323-8, 3084-1 ####[facility] LABCLIA [id number] [place] [address] Creatinine and Glomerular filtration rate.predicted panel (S/P/Bld) 87 mL/min/1.73m??? Normal >=60 [facility] Comment on above: Order Comment: Sara randle Type: BLOOD SPECIMENOrdering Facility: [facility] Address: [address] [place] [address] Result Comment: Carol mated Glomerular Filtration Rate [...] actual GFR. Performed By: #### 2 4323-8, 3084-1 ####[facility] LABCLIA [id number] [place] [address] Glucose [Mass/Vol] 94 mg/dL Normal 74-99 [facility] Comment on above: Order Comment: Sara razia Type: BLOOD SPECIMENOrdering Facility: [facility] Address: [address] [place] [address] Result Comment: The [place] [employer] (ADA) provides guidance for cutoff [...] Standards of Medical Care in Diabetes 2016, [place] [employer]. Diabetes Care. 2016.39(Suppl 1). Performed By: #### 2 4323-8, 3083- ####[facility] LABCLIA [id number] [place] [address] Potassium [Moles/Vol] 4.2 mmol/L Normal 3.7-5.1 [facility] Comment on above: Order Comment: Speci men Type: BLOOD SPECIMENOrdering Facility: [facility] Address: [address] [place] [address] Performed By: #### 2 4323-8, 3083-11 ####[facility] LABCLIA [id number] [place] [address] Protein [Mass/Vol] 7.3 g/dL Normal 6.3-8.0 [facility] Comment on above: Order Comment: Speci men Type: BLOOD SPECIMENOrdering Facility: [facility] Address: [address] [place] [address] Performed By: #### 2 4323-8, 3083-11 ####[facility] LABCLIA [id number] [place] [address] Sodium [Moles/Vol] 143 mmol/L Normal 136-144 [facility] Comment on above: Order Comment: Speci men Type: BLOOD SPECIMENOrdering Facility: [facility] Address: [address] [place] [address] Performed By: #### 2 4323-8, 3083-11 ####[facility] LABCLIA [id number] [place] [address] Urea nitrogen [Mass/Vol] 15 mg/dL Normal 9-24 [facility] Comment on above: Order Comment: Speci men Type: BLOOD SPECIMENOrdering Facility: [facility] Address: [address] [place] [address] Performed By: #### 2 4323-8, 3083- ####[facility] LABCLIA [id number] [place] [address] NM PET/CT SKULL-THIGH SUBQon 11-18-2023 NM PET/CT SKULL-THIGH SUBQ Normal [facility] Urate SerPl-mCncon 4 Urate [Mass/Vol] 6.7 mg/dL Normal 4.0-8.1 [facility] Comment on above: Order Comment: Speci men Type: BLOOD SPECIMENOrdering Facility: [facility] Address: [address] [place] [address] Performed By: #### 2 4323-8, 3084-1 ####[facility] LABCLIA [id number] [place] [address] CBC W Auto Differential pane l (Bld)on 10-28-2023 Basophils (Bld) [#/Vol] 0.06 10*3/uL Normal <0.11 [facility] Comment on above: Order Comment: Speci men Type: BLOOD SPECIMENOrdering Facility: [facility] Address: [address] [place] [address] Performed By: #### 5 7021-8 ####[facility] LABCLIA [id number] [place] [address] Basophils/100 WBC (Bld) 1.4 % Normal [facility] Comment on above: Order Comment: Speci men Type: BLOOD SPECIMENOrdering Facility: [facility] Address: [address] [place] [address] Performed By: #### 5 7021-8 ####[facility] LABCLIA [id number] [place] [address] Differential cell count method Nom (Bld) Auto Normal [facility] Comment on above: Order Comment: Speci men Type: BLOOD SPECIMENOrdering Facility: [facility] Address: [address] [place] [address] Performed By: #### 5 7021-8 ####[facility] LABCLIA [id number] [place] [address] Eosinophils (Bld) [#/Vol] 0.23 10*3/uL Normal <0.46 [facility] Comment on above: Order Comment: Speci men Type: BLOOD SPECIMENOrdering Facility: [facility] Address: [address] [place] [address] Performed By: #### 5 7021-8 ####[facility] LABCLIA [id number] [place] [address] Eosinophils/100 WBC (Bld) 5.2 % Normal [facility] Comment on above: Order Comment: Speci men Type: BLOOD SPECIMENOrdering Facility: [facility] Address: [address] [place] [address] Performed By: #### 5 7021-8 ####[facility] LABCLIA [id number] [place] [address] Erythrocyte distribution width (RBC) [Ratio] 14.0 % Normal 11.5-15.0 [facility] Comment on above: Order Comment: Speci men Type: BLOOD SPECIMENOrdering Facility: [facility] Address: [address] [place] [address] Performed By: #### 5 7021-8 ####[facility] LABCLIA [id number] [place] [address] Hematocrit (Bld) [Volume fraction] 39.6 % Normal 39.0-51.0 [facility] Comment on above: Order Comment: Speci men Type: BLOOD SPECIMENOrdering Facility: [facility] Address: [address] [place] [address] Performed By: #### 5 7021-8 ####[facility] LABCLIA [id number] [place] [address] Hemoglobin (Bld) [Mass/Vol] 13.8 g/dL Normal 13.0-17.0 [facility] Comment on above: Order Comment: Speci men Type: BLOOD SPECIMENOrdering Facility: [facility] Address: [address] [place] [address] Performed By: #### 5 7021-8 ####[facility] LABCLIA [id number] [place] [address] Immature granulocytes (Bld) [#/Vol] 0.04 10*3/uL Normal <0.10 [facility] Comment on above: Order Comment: Speci men Type: BLOOD SPECIMENOrdering Facility: [facility] Address: [address] [place] [address] Performed By: #### 5 7021-8 ####[facility] LABCLIA [id number] [place] [address] Immature granulocytes/100 WBC (Bld) 0.9 % Normal [facility] Comment on above: Order Comment: Speci men Type: BLOOD SPECIMENOrdering Facility: [facility] Address: [address] [place] [address] Performed By: #### 5 7021-8 ####[facility] LABCLIA [id number] [place] [address] Lymphocytes (Bld) [#/Vol] 0.46 10*3/uL Low 1.00-4.00 [facility] Comment on above: Order Comment: Speci men Type: BLOOD SPECIMENOrdering Facility: [facility] Address: [address] [place] [address] Performed By: #### 5 7021-8 ####[facility] LABCLIA [id number] [place] [address] Lymphocytes/100 WBC (Bld) 10.5 % Normal [facility] Comment on above: Order Comment: Speci men Type: BLOOD SPECIMENOrdering Facility: [facility] Address: [address] [place] [address] Performed By: #### 5 7021-8 ####[facility] LABIA [id number] [place] [address] MCH (RBC) [Entitic mass] 30.8 pg Normal 26.0-34.0 [facility] Comment on above: Order Comment: Speci men Type: BLOOD SPECIMENOrdering Facility: [facility] Address: [address] [place] [address] Performed By: #### 5 7021-8 ####[facility] LABCLIA [id number] [place] [address] MCHC (RBC) [Mass/Vol] 34.8 g/dL Normal 30.5-36.0 [facility] Comment on above: Order Comment: Speci men Type: BLOOD SPECIMENOrdering Facility: [facility] Address: [address] [place] [address] Performed By: #### 5 7021-8 ####[facility] LABCLIA [id number] [place] [address] MCV (RBC) [Entitic vol] 88.4 fL Normal 80.0-100.0 [facility] Comment on above: Order Comment: Speci men Type: BLOOD SPECIMENOrdering Facility: [facility] Address: [address] [place] [address] Performed By: #### 5 7021-8 ####[facility] LABCLIA [id number] [place] [address] Monocytes (Bld) [#/Vol] 0.82 10*3/uL Normal <0.87 [facility] Comment on above: Order Comment: Speci men Type: BLOOD SPECIMENOrdering Facility: [facility] Address: [address] [place] [address] Performed By: #### 5 7021-8 ####[facility] LABCLIA [id number] [place] [address] Monocytes/100 WBC (Bld) 18.7 % Normal [facility] Comment on above: Order Comment: Speci men Type: BLOOD SPECIMENOrdering Facility: [facility] Address: [address] [place] [address] Performed By: #### 5 7021-8 ####[facility] LABCLIA [id number] [place] [address] Neutrophils (Bld) [#/Vol] 2.78 10*3/uL Normal 1.45-7.50 [facility] Comment on above: Order Comment: Speci men Type: BLOOD SPECIMENOrdering Facility: [facility] Address: [address] [place] [address] Performed By: #### 5 7021-8 ####[facility] LABCLIA [id number] [place] [address] Neutrophils/100 WBC (Bld) 63.3 % Normal [facility] Comment on above: Order Comment: Speci men Type: BLOOD SPECIMENOrdering Facility: [facility] Address: [address] [place] [address] Performed By: #### 5 7021-8 ####[facility] LABCLIA [id number] [place] [address] Nucleated RBC (Bld) [#/Vol] 10*3/uL Normal <0.01 [facility] Comment on above: Order Comment: Speci men Type: BLOOD SPECIMENOrdering Facility: [facility] Address: [address] [place] [address] Performed By: #### 5 7021-8 ####[facility] LABCLIA [id number] [place] [address] Nucleated RBC/100 WBC (Bld) [Ratio] 0.0 /100 WBC Normal [facility] Comment on above: Order Comment: Speci men Type: BLOOD SPECIMENOrdering Facility: [facility] Address: [address] [place] [address] Performed By: #### 5 7021-8 ####[facility] LABCLIA [id number] [place] [address] Platelet mean volume (Bld) [Entitic vol] 10.0 fL Normal 9.0-12.7 [facility] Comment on above: Order Comment: Speci men Type: BLOOD SPECIMENOrdering Facility: [facility] Address: [address] [place] [address] Performed By: #### 5 7021-8 ####[facility] LABCLIA [id number] [place] [address] Platelets (Bld) [#/Vol] 165 10*3/uL Normal 150-400 [facility] Comment on above: Order Comment: Speci men Type: BLOOD SPECIMENOrdering Facility: [facility] Address: [address] [place] [address] Performed By: #### 5 7021-8 ####[facility] LABIA [id number] [place] [address] RBC (Bld) [#/Vol] 4.48 10*6/uL Normal 4.20-6.00 [facility] Comment on above: Order Comment: Speci men Type: BLOOD SPECIMENOrdering Facility: [facility] Address: [address] [place] [address] Performed By: #### 5 7021-8 ####[facility] [id number] [place] [address] WBC (Bld) [#/Vol] 4.39 10*3/uL Normal 3.70-11.00 [facility] Comment on above: Order Comment: Speci men Type: BLOOD SPECIMENOrdering Facility: [facility] Address: [address] [place] [address] Performed By: #### 5 7021-8 ####[facility] LABIA [id number] [place] [address] CNOVSPon 10-28-2023 CNOVSP Normal [facility] Comprehensive metabolic 2000 panelon 10-28-2023 Albumin [Mass/Vol] 4.2 g/dL Normal 3.9-4.9 [facility] Comment on above: Order Comment: Speci men Type: BLOOD SPECIMENOrdering Facility: [facility] Address: [address] [place] [address] Performed By: #### 2 4323-8 ####[facility] LABIA [id number] [place] [address] ALP [Catalytic activity/Vol] 163 U/L High 38-113 [facility] Comment on above: Order Comment: Speci men Type: BLOOD SPECIMENOrdering Facility: [facility] Address: [address] [place] [address] Performed By: #### 2 4323-8 ####[facility] LABCLIA [id number] [place] [address] ALT [Catalytic activity/Vol] 19 U/L Normal 10-54 [facility] Comment on above: Order Comment: Speci men Type: BLOOD SPECIMENOrdering Facility: [facility] Address: [address] [place] [address] Performed By: #### 2 4323-8 ####[facility] LABCLIA [id number] [place] [address] Anion gap [Moles/Vol] 15 mmol/L Normal 9-18 [facility] Comment on above: Order Comment: Speci men Type: BLOOD SPECIMENOrdering Facility: [facility] [facility] Address: [address] [place] [address] Performed By: #### 2 4323-8 ####[facility] LABCLIA [id number] [place] [address] AST [Catalytic activity/Vol] 19 U/L Normal 14-40 [facility] Comment on above: Order Comment: Speci men Type: BLOOD SPECIMENOrdering Facility: [facility] Address: [address] [place] [address] Performed By: #### 2 4323-8 ####[facility] LABCLIA [id number] [place] [address] Bilirubin [Mass/Vol] 0.3 mg/dL Normal 0.2-1.3 [facility] Comment on above: Order Comment: Speci men Type: BLOOD SPECIMENOrdering Facility: [facility] Address: [address] [place] [address] Performed By: #### 2 4323-8 ####[facility] LABCLIA [id number] [place] [address] Calcium [Mass/Vol] 9.7 mg/dL Normal 8.5-10.2 [facility] Comment on above: Order Comment: Speci men Type: BLOOD SPECIMENOrdering Facility: [facility] Address: [address] [place] [address] Performed By: #### 2 4323-8 ####[facility] LABCLIA [id number] [place] [address] Chloride [Moles/Vol] 104 mmol/L Normal 97-105 [facility] Comment on above: Order Comment: Speci men Type: BLOOD SPECIMENOrdering Facility: [facility] Address: [address] [place] [address] Performed By: #### 2 4323-8 ####[facility] LABCLIA [id number] [place] [address] CO2 [Moles/Vol] 21 mmol/L Low 22-30 [facility] Comment on above: Order Comment: Speci men Type: BLOOD SPECIMENOrdering Facility: [facility] Address: [address] [place] [address] Performed By: #### 2 4323-8 ####[facility] LABCLIA [id number] [place] [address] Creatinine [Mass/Vol] 0.96 mg/dL Normal 0.73-1.22 [facility] Comment on above: Order Comment: Speci men Type: BLOOD SPECIMENOrdering Facility: [facility] Address: [address] [place] [address] Performed By: #### 2 4323-8 ####[facility] LABCLIA [id number] [place] [address] Creatinine and Glomerular filtration rate.predicted panel (S/P/Bld) 87 mL/min/1.73m??? Normal >=60 [facility] Comment on above: Order Comment: Speci men Type: BLOOD SPECIMENOrdering Facility: [facility] Address: [address] [place] [address] Result Comment: Carol mated Glomerular Filtration Rate [...] actual GFR. Performed By: #### 2 4323-8 ####[facility] LABCLIA [id number] [place] [address] Glucose [Mass/Vol] 103 mg/dL High 74-99 [facility] Comment on above: Order Comment: Sara randle Type: BLOOD SPECIMENOrdering Facility: [facility] Address: [address] [place] [address] Result Comment: The [place] [employer] (ADA) provides guidance for cutoff [...] Standards of Medical Care in Diabetes 2016, [place] [employer]. Diabetes Care. 2016.39(Suppl 1). Performed By: #### 2 4323-8 ####[facility] LABCLIA [id number] [place] [address] Potassium [Moles/Vol] 4.3 mmol/L Normal 3.7-5.1 [facility] Comment on above: Order Comment: Sara randle Type: BLOOD SPECIMENOrdering Facility: [facility] Address: [address] [id number] Performed By: #### 2 4323-8 ####[facility] LABCLIA [id number] [place] [address] Protein [Mass/Vol] 7.1 g/dL Normal 6.3-8.0 [facility] Comment on above: Order Comment: Speci men Type: BLOOD SPECIMENOrdering Facility: [facility] Address: [address] [place] [address] Performed By: #### 2 4323-8 ####[facility] LABCLIA [id number] [place] [address] Sodium [Moles/Vol] 140 mmol/L Normal 136-144 [facility] Comment on above: Order Comment: Speci men Type: BLOOD SPECIMENOrdering Facility: [facility] Address: [address] [place] [address] Performed By: #### 2 4323-8 ####[facility] LABCLIA [id number] [place] [address] Urea nitrogen [Mass/Vol] 15 mg/dL Normal 9-24 [facility] Comment on above: Order Comment: Speci men Type: BLOOD SPECIMENOrdering Facility: [facility] Address: [address] [place] [address] Performed By: #### 2 4323-8 ####[facility] LABCLIA [id number] [place] [address] CNPNon 10-23-2023 CNPN Normal [facility] CBC W Auto Differential pane l (Bld)on 09-30-2023 Basophils (Bld) [#/Vol] 0.06 10*3/uL Normal <0.11 [facility] Comment on above: Order Comment: Speci men Type: BLOOD SPECIMENOrdering Facility: [facility] Address: [address] [place] [address] Performed By: #### 5 7021-8 ####[facility] LABCLIA [id number] [place] [address] Basophils/100 WBC (Bld) 1.1 % Normal [facility] Comment on above: Order Comment: Speci men Type: BLOOD SPECIMENOrdering Facility: [facility] Address: [address] [place] [address] Performed By: #### 5 7021-8 ####[facility] LABCLIA [id number] [place] [address] Differential cell count method Nom (Bld) Auto Normal [facility] Comment on above: Order Comment: Speci men Type: BLOOD SPECIMENOrdering Facility: [facility] Address: [address] [place] [address] Performed By: #### 5 7021-8 ####[facility] LABCLIA [id number] [place] [address] Eosinophils (Bld) [#/Vol] 0.24 10*3/uL Normal <0.46 [facility] Comment on above: Order Comment: Speci men Type: BLOOD SPECIMENOrdering Facility: [facility] Address: [address] [place] [address] Performed By: #### 5 7021-8 ####[facility] LABCLIA [id number] [place] [address] Eosinophils/100 WBC (Bld) 4.4 % Normal [facility] Comment on above: Order Comment: Speci men Type: BLOOD SPECIMENOrdering Facility: [facility] Address: [address] [place] [address] Performed By: #### 5 7021-8 ####[facility] LABCLIA [id number] [place] [address] Erythrocyte distribution width (RBC) [Ratio] 14.6 % Normal 11.5-15.0 [facility] Comment on above: Order Comment: Speci men Type: BLOOD SPECIMENOrdering Facility: [facility] Address: [address] [place] [address] Performed By: #### 5 7021-8 ####[facility] LABCLIA [id number] [place] [address] Hematocrit (Bld) [Volume fraction] 40.7 % Normal 39.0-51.0 [facility] Comment on above: Order Comment: Speci men Type: BLOOD SPECIMENOrdering Facility: [facility] Address: [address] [place] [address] Performed By: #### 5 7021-8 ####[facility] LABCLIA [id number] [place] [address] Hemoglobin (Bld) [Mass/Vol] 14.1 g/dL Normal 13.0-17.0 [facility] Comment on above: Order Comment: Speci men Type: BLOOD SPECIMENOrdering Facility: [facility] Address: [address] [place] [address] Performed By: #### 5 7021-8 ####[facility] LABCLIA [id number] [place] [address] Immature granulocytes (Bld) [#/Vol] 0.07 10*3/uL Normal <0.10 [facility] Comment on above: Order Comment: Speci men Type: BLOOD SPECIMENOrdering Facility: [facility] Address: [address] [place] [address] Performed By: #### 5 7021-8 ####[facility] LABCLIA [id number] [place] [address] Immature granulocytes/100 WBC (Bld) 1.3 % Normal [facility] Comment on above: Order Comment: Speci men Type: BLOOD SPECIMENOrdering Facility: [facility] Address: [address] [place] [address] Performed By: #### 5 7021-8 ####[facility] LABCLIA [id number] [place] [address] Lymphocytes (Bld) [#/Vol] 0.80 10*3/uL Low 1.00-4.00 [facility] Comment on above: Order Comment: Speci men Type: BLOOD SPECIMENOrdering Facility: [facility] Address: [address] [place] [address] Performed By: #### 5 7021-8 ####[facility] LABCLIA [id number] [place] [address] Lymphocytes/100 WBC (Bld) 14.7 % Normal [facility] Comment on above: Order Comment: Speci men Type: BLOOD SPECIMENOrdering Facility: [facility] Address: [address] [place] [address] Performed By: #### 5 7021-8 ####[facility] LABCLIA [id number] [place] [address] MCH (RBC) [Entitic mass] 30.5 pg Normal 26.0-34.0 [facility] Comment on above: Order Comment: Speci men Type: BLOOD SPECIMENOrdering Facility: [facility] Address: [address] [place] [address] Performed By: #### 5 7021-8 ####[facility] LABIA [id number] [place] [address] MCHC (RBC) [Mass/Vol] 34.6 g/dL Normal 30.5-36.0 [facility] Comment on above: Order Comment: Speci men Type: BLOOD SPECIMENOrdering Facility: [facility] Address: [address] [place] [address] Performed By: #### 5 7021-8 ####[facility] LABCLIA [id number] [place] [address] MCV (RBC) [Entitic vol] 87.9 fL Normal 80.0-100.0 [facility] Comment on above: Order Comment: Speci men Type: BLOOD SPECIMENOrdering Facility: [facility] Address: [address] [place] [address] Performed By: #### 5 7021-8 ####[facility] LABIA [id number] [place] [address] Monocytes (Bld) [#/Vol] 1.18 10*3/uL High <0.87 [facility] Comment on above: Order Comment: Speci men Type: BLOOD SPECIMENOrdering Facility: [facility] Address: [address] [place] [address] Performed By: #### 5 7021-8 ####[facility] LABCLIA [id number] [place] [address] Monocytes/100 WBC (Bld) 21.7 % Normal [facility] Comment on above: Order Comment: Speci men Type: BLOOD SPECIMENOrdering Facility: [facility] Address: [address] [place] [address] Performed By: #### 5 7021-8 ####[facility] LABCLIA [id number] [place] [address] Neutrophils (Bld) [#/Vol] 3.08 10*3/uL Normal 1.45-7.50 [facility] Comment on above: Order Comment: Speci men Type: BLOOD SPECIMENOrdering Facility: [facility] Address: [address] [place] [address] Performed By: #### 5 7021-8 ####[facility] LABCLIA [id number] [place] [address] Neutrophils/100 WBC (Bld) 56.8 % Normal [facility] Comment on above: Order Comment: Speci men Type: BLOOD SPECIMENOrdering Facility: [facility] Address: [address] [place] [address] Performed By: #### 5 7021-8 ####[facility] LABCLIA [id number] [place] [address] Nucleated RBC (Bld) [#/Vol] 10*3/uL Normal <0.01 [facility] Comment on above: Order Comment: Speci men Type: BLOOD SPECIMENOrdering Facility: [facility] Address: [address] [place] [address] Performed By: #### 5 7021-8 ####[facility] LABCLIA [id number] [place] [address] Nucleated RBC/100 WBC (Bld) [Ratio] 0.0 /100 WBC Normal [facility] Comment on above: Order Comment: Speci men Type: BLOOD SPECIMENOrdering Facility: [facility] Address: [address] [place] [address] Performed By: #### 5 7021-8 ####[facility] LABCLIA [id number] [place] [address] Platelet mean volume (Bld) [Entitic vol] 9.1 fL Normal 9.0-12.7 [facility] Comment on above: Order Comment: Speci men Type: BLOOD SPECIMENOrdering Facility: [facility] Address: [address] [place] [address] Performed By: #### 5 7021-8 ####[facility] LABCLIA [id number] [place] [address] Platelets (Bld) [#/Vol] 194 10*3/uL Normal 150-400 [facility] Comment on above: Order Comment: Speci men Type: BLOOD SPECIMENOrdering Facility: [facility] Address: [address] [place] [address] Performed By: #### 5 7021-8 ####[facility] LABIA [id number] [place] [address] RBC (Bld) [#/Vol] 4.63 10*6/uL Normal 4.20-6.00 [facility] Comment on above: Order Comment: Speci men Type: BLOOD SPECIMENOrdering Facility: [facility] Address: [address] [place] [address] Performed By: #### 5 7021-8 ####[facility] LABCLIA [id number] [place] [address] WBC (Bld) [#/Vol] 5.43 10*3/uL Normal 3.70-11.00 [facility] Comment on above: Order Comment: Speci men Type: BLOOD SPECIMENOrdering Facility: [facility] Address: [address] [place] [address] Performed By: #### 5 7021-8 ####[facility] LABCLIA [id number] [place] [address] Basophils (Bld) [#/Vol] 0.06 10*3/uL <0.11 k/uL [facility] Basophils/100 WBC (Bld) 1.1 % [facility] Differential cell count method Nom (Bld) Auto [facility] Eosinophils (Bld) [#/Vol] 0.24 10*3/uL <0.46 k/uL [facility] Eosinophils/100 WBC (Bld) 4.4 % [facility] Erythrocyte distribution width (RBC) [Ratio] 14.6 % 11.5 - 15.0 % [facility] Hematocrit (Bld) [Volume fraction] 40.7 % 39.0 - 51.0 % [facility] Hemoglobin (Bld) [Mass/Vol] 14.1 g/dL 13.0 - 17.0 g/dL [facility] Immature granulocytes (Bld) [#/Vol] 0.07 10*3/uL <0.10 k/uL [facility] Immature granulocytes/100 WBC (Bld) 1.3 % [facility] Lymphocytes (Bld) [#/Vol] 0.80 10*3/uL Low 1.00 - 4.00 k/uL [facility] Lymphocytes/100 WBC (Bld) 14.7 % [facility] MCH (RBC) [Entitic mass] 30.5 pg 26.0 - 34.0 pg [facility] MCHC (RBC) [Mass/Vol] 34.6 g/dL 30.5 - 36.0 g/dL [facility] MCV (RBC) [Entitic vol] 87.9 fL 80.0 - 100.0 fL [facility] Monocytes (Bld) [#/Vol] 1.18 10*3/uL High <0.87 k/uL [facility] Monocytes/100 WBC (Bld) 21.7 % [facility] Neutrophils (Bld) [#/Vol] 3.08 10*3/uL 1.45 - 7.50 k/uL [facility] Neutrophils/100 WBC (Bld) 56.8 % [facility] Nucleated RBC (Bld) [#/Vol] <0.01 k/uL [facility] Nucleated RBC/100 WBC (Bld) [Ratio] 0.0 /100 WBC [facility] Platelet mean volume (Bld) [Entitic vol] 9.1 fL 9.0 - 12.7 fL [facility] Platelets (Bld) [#/Vol] 194 10*3/uL 150 - 400 k/uL [facility] RBC (Bld) [#/Vol] 4.63 10*6/uL 4.20 - 6.00 m/uL [facility] WBC (Bld) [#/Vol] 5.43 10*3/uL 3.70 - 11.00 k/uL [facility] CNOVSPon 09-30-2023 CNOVSP Normal [facility] Comprehensive metabolic 2000 panelon 09-30-2023 Albumin [Mass/Vol] 4.3 g/dL Normal 3.9-4.9 [facility] Comment on above: Order Comment: Speci men Type: BLOOD SPECIMENOrdering Facility: [facility] Address: [address] [place] [address] Performed By: #### 2 4323-8, 3084-1 ####[facility] LABCLIA [id number] [place] [address] ALP [Catalytic activity/Vol] 175 U/L High 38-113 [facility] Comment on above: Order Comment: Speci men Type: BLOOD SPECIMENOrdering Facility: [facility] Address: [address] [place] [address] Performed By: #### 2 4323-8, 3084-1 ####[facility] LABCLIA [id number] [place] [address] ALT [Catalytic activity/Vol] 18 U/L Normal 10-54 [facility] Comment on above: Order Comment: Speci men Type: BLOOD SPECIMENOrdering Facility: [facility] Address: [address] [place] [address] Performed By: #### 2 4323-8, 3084-1 ####[facility] LABCLIA [id number] [place] [address] Anion gap [Moles/Vol] 11 mmol/L Normal 9-18 [facility] Comment on above: Order Comment: Speci men Type: BLOOD SPECIMENOrdering Facility: [facility] Address: [address] [place] [address] Performed By: #### 2 4323-8, 3083- ####[facility] LABCLIA [id number] [place] [address] AST [Catalytic activity/Vol] 16 U/L Normal 14-40 [facility] Comment on above: Order Comment: Speci men Type: BLOOD SPECIMENOrdering Facility: [facility] Address: [address] [place] [address] Performed By: #### 2 4323-8, 3083-11 ####[facility] LABCLIA [id number] [place] [address] Bilirubin [Mass/Vol] 0.2 mg/dL Normal 0.2-1.3 [facility] Comment on above: Order Comment: Speci men Type: BLOOD SPECIMENOrdering Facility: [facility] Address: [address] [place] [address] Performed By: #### 2 4323-8, 3083-11 ####[facility] LABIA [id number] [place] [address] Calcium [Mass/Vol] 9.5 mg/dL Normal 8.5-10.2 [facility] Comment on above: Order Comment: Speci men Type: BLOOD SPECIMENOrdering Facility: [facility] Address: [address] [id number] Performed By: #### 2 4323-8, 3083-11 ####[facility] LABIA [id number] [place] [address] Chloride [Moles/Vol] 104 mmol/L Normal 97-105 [facility] Comment on above: Order Comment: Speci men Type: BLOOD SPECIMENOrdering Facility: [facility] Address: [address] [place] [address] Performed By: #### 2 4323-8, 3083- ####[facility] LABCLIA [id number] [place] [address] CO2 [Moles/Vol] 24 mmol/L Normal 22-30 [facility] Comment on above: Order Comment: Speci men Type: BLOOD SPECIMENOrdering Facility: [facility] Address: [address] [place] [address] Performed By: #### 2 4323-8, 3083-1 ####[facility] LABCLIA [id number] [place] [address] Creatinine [Mass/Vol] 0.97 mg/dL Normal 0.73-1.22 [facility] Comment on above: Order Comment: Speci men Type: BLOOD SPECIMENOrdering Facility: [facility] Address: [address] [place] [address] Performed By: #### 2 4323-8, 3083-11 ####[facility] LABIA [id number] [place] [address] Creatinine and Glomerular filtration rate.predicted panel (S/P/Bld) 86 mL/min/1.73m??? Normal >=60 [facility] Comment on above: Order Comment: Speci men Type: BLOOD SPECIMENOrdering Facility: [facility] Address: [address] [place] [address] Result Comment: Carol mated Glomerular Filtration Rate [...] GFR. Performed By: #### 2 4323-8, 3083- ####[facility] LABIA [id number] [place] [address] Glucose [Mass/Vol] 101 mg/dL High 74-99 [facility] Comment on above: Order Comment: Speci men Type: BLOOD SPECIMENOrdering Facility: [facility] Address: [address] [id number] Result Comment: The [place] [employer] (ADA) provides guidance for cutoff [...] Standards of Medical Care in Diabetes 2016, [place] [employer]. Diabetes Care. 2016.39(Suppl 1). Performed By: #### 2 4323-8, 3083- ####[facility] LABCLIA [id number] [place] [address] Potassium [Moles/Vol] 4.2 mmol/L Normal 3.7-5.1 [facility] Comment on above: Order Comment: Speci men Type: BLOOD SPECIMENOrdering Facility: [facility] Address: [address] [place] [address] Performed By: #### 2 4323-8, 3083-11 ####[facility] LABCLIA [id number] [place] [address] Protein [Mass/Vol] 7.0 g/dL Normal 6.3-8.0 [facility] Comment on above: Order Comment: Speci men Type: BLOOD SPECIMENOrdering Facility: [facility] Address: [address] [place] [address] Performed By: #### 2 4323-8, 3083-11 ####[facility] LABCLIA [id number] [place] [address] Sodium [Moles/Vol] 139 mmol/L Normal 136-144 [facility] Comment on above: Order Comment: Speci men Type: BLOOD SPECIMENOrdering Facility: [facility] Address: [address] [place] [address] Performed By: #### 2 4323-8, 308-1 ####[facility] LABCLIA [id number] [place] [address] Urea nitrogen [Mass/Vol] 25 mg/dL High 9-24 [facility] Comment on above: Order Comment: Speci men Type: BLOOD SPECIMENOrdering Facility: [facility] Address: [place] [address] Performed By: #### 2 4323-8, 3083-11 ####[facility] LABCLIA [id number] [place] [address] Albumin [Mass/Vol] 4.3 g/dL 3.9 - 4.9 g/dL [facility] ALP [Catalytic activity/Vol] 175 U/L High 38 - 113 U/L [facility] ALT [Catalytic activity/Vol] 18 U/L 10 - 54 U/L [facility] Anion gap [Moles/Vol] 11 mmol/L 9 - 18 mmol/L [facility] AST [Catalytic activity/Vol] 16 U/L 14 - 40 U/L [facility] Bilirubin [Mass/Vol] 0.2 mg/dL 0.2 - 1 .3 mg/dL [facility] Calcium [Mass/Vol] 9.5 mg/dL 8.5 - 10. 2 mg/dL [facility] Chloride [Moles/Vol] 104 mmol/L 97 - 10 5 mmol/L [facility] CO2 [Moles/Vol] 24 mmol/L 22 - 30 mmol/L [facility] Creatinine [Mass/Vol] 0.97 mg/dL 0.73 - 1.22 mg/dL [facility] Estimated Glomerular Filtration Rate 86 mL/min/1.73m >=60 mL/min/1.7 3m [facility] Glucose [Mass/Vol] 101 mg/dL High 74 - 99 mg/dL [facility] Potassium [Moles/Vol] 4.2 mmol/L 3.7 - 5.1 mmol/L [facility] Protein [Mass/Vol] 7.0 g/dL 6.3 - 8.0 g/dL [facility] Sodium [Moles/Vol] 139 mmol/L 136 - 144 mmol/L [facility] Urea nitrogen [Mass/Vol] 25 mg/dL High 9 - 24 mg/dL [facility] URIC ACID BLOODon 09-30-2023 Urate [Mass/Vol] 7.2 mg/dL 4.0 - 8.1 mg/dL [facility] Urate SerPl-mCncon 3 Urate [Mass/Vol] 7.2 mg/dL Normal 4.0-8.1 [facility] Comment on above: Order Comment: Speci men Type: BLOOD SPECIMENOrdering Facility: [facility] Address: [address] [place] [address] Performed By: #### 2 4323-8, 3084-1 ####[facility] LABCLIA [id number] [place] [address] NM PET/CT SKULL-THIGH SUBQon 09-23-2023 NM PET/CT SKULL-THIGH SUBQ Normal [facility] CBC W Auto Differential pane l (Bld)on 09-02-2023 Basophils (Bld) [#/Vol] 0.06 10*3/uL Normal <0.11 [facility] Comment on above: Order Comment: Speci men Type: BLOOD SPECIMENOrdering Facility: [facility] Address: [address] [place] [address] Performed By: #### 5 7021-8 ####[facility] LABCLIA [id number] [place] [address] Basophils/100 WBC (Bld) 1.1 % Normal [facility] Comment on above: Order Comment: Speci men Type: BLOOD SPECIMENOrdering Facility: [facility] Address: [address] [place] [address] Performed By: #### 5 7021-8 ####[facility] LABCLIA [id number] [place] [address] Differential cell count method Nom (Bld) Auto Normal [facility] Comment on above: Order Comment: Speci men Type: BLOOD SPECIMENOrdering Facility: [facility] Address: [address] [place] [address] Performed By: #### 5 7021-8 ####[facility] LABCLIA [id number] [place] [address] Eosinophils (Bld) [#/Vol] 0.21 10*3/uL Normal <0.46 [facility] Comment on above: Order Comment: Speci men Type: BLOOD SPECIMENOrdering Facility: [facility] Address: [address] [place] [address] Performed By: #### 5 7021-8 ####[facility] LABCLIA [id number] [place] [address] Eosinophils/100 WBC (Bld) 3.9 % Normal [facility] Comment on above: Order Comment: Speci men Type: BLOOD SPECIMENOrdering Facility: [facility] Address: [address] [place] [address] Performed By: #### 5 7021-8 ####[facility] LABCLIA [id number] [place] [address] Erythrocyte distribution width (RBC) [Ratio] 15.6 % High 11.5-15.0 [facility] Comment on above: Order Comment: Speci men Type: BLOOD SPECIMENOrdering Facility: [facility] Address: [address] [place] [address] Performed By: #### 5 7021-8 ####[facility] LABCLIA [id number] [place] [address] Hematocrit (Bld) [Volume fraction] 41.9 % Normal 39.0-51.0 [facility] Comment on above: Order Comment: Speci men Type: BLOOD SPECIMENOrdering Facility: [facility] Address: [address] [place] [address] Performed By: #### 5 7021-8 ####[facility] LABCLIA [id number] [place] [address] Hemoglobin (Bld) [Mass/Vol] 14.5 g/dL Normal 13.0-17.0 [facility] Comment on above: Order Comment: Speci men Type: BLOOD SPECIMENOrdering Facility: [facility] Address: [address] [place] [address] Performed By: #### 5 7021-8 ####[facility] LABCLIA [id number] [place] [address] Immature granulocytes (Bld) [#/Vol] 0.04 10*3/uL Normal <0.10 [facility] Comment on above: Order Comment: Speci men Type: BLOOD SPECIMENOrdering Facility: [facility] Address: [address] [place] [address] Performed By: #### 5 7021-8 ####[facility] LABCLIA [id number] [place] [address] Immature granulocytes/100 WBC (Bld) 0.7 % Normal [facility] Comment on above: Order Comment: Speci men Type: BLOOD SPECIMENOrdering Facility: [facility] Address: [address] [place] [address] Performed By: #### 5 7021-8 ####[facility] LABCLIA [id number] [place] [address] Lymphocytes (Bld) [#/Vol] 0.45 10*3/uL Low 1.00-4.00 [facility] Comment on above: Order Comment: Speci men Type: BLOOD SPECIMENOrdering Facility: [facility] Address: [address] [place] [address] Performed By: #### 5 7021-8 ####[facility] LABCLIA [id number] [place] [address] Lymphocytes/100 WBC (Bld) 8.4 % Normal [facility] Comment on above: Order Comment: Speci men Type: BLOOD SPECIMENOrdering Facility: [facility] Address: [address] [place] [address] Performed By: #### 5 7021-8 ####[facility] LABCLIA [id number] [place] [address] MCH (RBC) [Entitic mass] 30.1 pg Normal 26.0-34.0 [facility] Comment on above: Order Comment: Speci men Type: BLOOD SPECIMENOrdering Facility: [facility] Address: [address] [place] [address] Performed By: #### 5 7021-8 ####[facility] LABCLIA [id number] [place] [address] MCHC (RBC) [Mass/Vol] 34.6 g/dL Normal 30.5-36.0 [facility] Comment on above: Order Comment: Speci men Type: BLOOD SPECIMENOrdering Facility: [facility] Address: [address] [place] [address] Performed By: #### 5 7021-8 ####[facility] LABCLIA [id number] [place] [address] MCV (RBC) [Entitic vol] 86.9 fL Normal 80.0-100.0 [facility] Comment on above: Order Comment: Speci men Type: BLOOD SPECIMENOrdering Facility: [facility] Address: [address] [place] [address] Performed By: #### 5 7021-8 ####[facility] LABCLIA [id number] [place] [address] Monocytes (Bld) [#/Vol] 0.92 10*3/uL High <0.87 [facility] Comment on above: Order Comment: Speci men Type: BLOOD SPECIMENOrdering Facility: [facility] Address: [address] [place] [address] Performed By: #### 5 7021-8 ####[facility] LABCLIA [id number] [place] [address] Monocytes/100 WBC (Bld) 17.2 % Normal [facility] Comment on above: Order Comment: Speci men Type: BLOOD SPECIMENOrdering Facility: [facility] Address: [address] [place] [address] Performed By: #### 5 7021-8 ####[facility] LABCLIA [id number] [place] [address] Neutrophils (Bld) [#/Vol] 3.66 10*3/uL Normal 1.45-7.50 [facility] Comment on above: Order Comment: Speci men Type: BLOOD SPECIMENOrdering Facility: [facility] Address: [address] [place] [address] Performed By: #### 5 7021-8 ####[facility] LABCLIA [id number] [place] [address] Neutrophils/100 WBC (Bld) 68.7 % Normal [facility] Comment on above: Order Comment: Speci men Type: BLOOD SPECIMENOrdering Facility: [facility] Address: [address] [place] [address] Performed By: #### 5 7021-8 ####[facility] LABIA [id number] [place] [address] Nucleated RBC (Bld) [#/Vol] 10*3/uL Normal <0.01 [facility] Comment on above: Order Comment: Speci men Type: BLOOD SPECIMENOrdering Facility: [facility] Address: [address] [place] [address] Performed By: #### 5 7021-8 ####[facility] LABCLIA [id number] [place] [address] Nucleated RBC/100 WBC (Bld) [Ratio] 0.0 /100 WBC Normal [facility] Comment on above: Order Comment: Speci men Type: BLOOD SPECIMENOrdering Facility: [facility] Address: [address] [place] [address] Performed By: #### 5 7021-8 ####[facility] LABCLIA [id number] [place] [address] Platelet mean volume (Bld) [Entitic vol] 9.7 fL Normal 9.0-12.7 [facility] Comment on above: Order Comment: Speci men Type: BLOOD SPECIMENOrdering Facility: [facility] Address: [address] [place] [address] Performed By: #### 5 7021-8 ####[facility] LABCLIA [id number] [place] [address] Platelets (Bld) [#/Vol] 160 10*3/uL Normal 150-400 [facility] Comment on above: Order Comment: Speci men Type: BLOOD SPECIMENOrdering Facility: [facility] Address: [address] [place] [address] Performed By: #### 5 7021-8 ####[facility] LABCLIA [id number] [place] [address] RBC (Bld) [#/Vol] 4.82 10*6/uL Normal 4.20-6.00 [facility] Comment on above: Order Comment: Speci men Type: BLOOD SPECIMENOrdering Facility: [facility] Address: [address] [place] [address] Performed By: #### 5 7021-8 ####[facility] LABIA [id number] [place] [address] WBC (Bld) [#/Vol] 5.34 10*3/uL Normal 3.70-11.00 [facility] Comment on above: Order Comment: Speci men Type: BLOOD SPECIMENOrdering Facility: [facility] Address: [address] [place] [address] Performed By: #### 5 7021-8 ####[facility] LABIA [id number] [place] [address] CNOVSPon 09-02-2023 CNOVSP Normal [facility] Comprehensive metabolic 2000 panelon 09-02-2023 Albumin [Mass/Vol] 4.3 g/dL Normal 3.9-4.9 [facility] Comment on above: Order Comment: Speci men Type: BLOOD SPECIMENOrdering Facility: [facility] Address: [address] [place] [address] Performed By: #### 2 4323-8, 3083- ####[facility] LABCLIA [id number] [place] [address] ALP [Catalytic activity/Vol] 162 U/L High 38-113 [facility] Comment on above: Order Comment: Speci men Type: BLOOD SPECIMENOrdering Facility: [facility] Address: [address] [place] [address] Performed By: #### 2 4323-8, 3083- ####[facility] LABCLIA [id number] [place] [address] ALT [Catalytic activity/Vol] 20 U/L Normal 10-54 [facility] Comment on above: Order Comment: Speci men Type: BLOOD SPECIMENOrdering Facility: [facility] Address: [address] [place] [address] Performed By: #### 2 4323-8, 3083-11 ####[facility] LABCLIA [id number] [place] [address] Anion gap [Moles/Vol] 10 mmol/L Normal 9-18 [facility] Comment on above: Order Comment: Speci men Type: BLOOD SPECIMENOrdering Facility: [facility] Address: [address] [place] [address] Performed By: #### 2 4323-8, 3083-11 ####[facility] LABCLIA [id number] [place] [address] AST [Catalytic activity/Vol] 25 U/L Normal 14-40 [facility] Comment on above: Order Comment: Speci men Type: BLOOD SPECIMENOrdering Facility: [facility] Address: [address] [place] [address] Performed By: #### 2 4323-8, 3083- ####[facility] LABCLIA [id number] [place] [address] Bilirubin [Mass/Vol] 0.3 mg/dL Normal 0.2-1.3 [facility] Comment on above: Order Comment: Speci men Type: BLOOD SPECIMENOrdering Facility: [facility] Address: [address] [place] [address] Performed By: #### 2 4323-8, 3083- ####[facility] LABCLIA [id number] [place] [address] Calcium [Mass/Vol] 9.7 mg/dL Normal 8.5-10.2 [facility] Comment on above: Order Comment: Speci men Type: BLOOD SPECIMENOrdering Facility: [facility] Address: [address] [place] [address] Performed By: #### 2 4323-8, 3083-11 ####[facility] LABCLIA [id number] [place] [address] Chloride [Moles/Vol] 103 mmol/L Normal 97-105 [facility] Comment on above: Order Comment: Speci men Type: BLOOD SPECIMENOrdering Facility: [facility] Address: [address] [place] [address] Performed By: #### 2 4323-8, 3083-11 ####[facility] LABCLIA [id number] [place] [address] CO2 [Moles/Vol] 26 mmol/L Normal 22-30 [facility] Comment on above: Order Comment: Speci men Type: BLOOD SPECIMENOrdering Facility: [facility] Address: [address] [place] [address] Performed By: #### 2 4323-8, 3083- ####[facility] LABCLIA [id number] [place] [address] Creatinine [Mass/Vol] 0.98 mg/dL Normal 0.73-1.22 [facility] Comment on above: Order Comment: Speci men Type: BLOOD SPECIMENOrdering Facility: [facility] Address: [address] [place] [address] Performed By: #### 2 4323-8, 3083-11 ####[facility] LABCLIA [id number] [place] [address] Creatinine and Glomerular filtration rate.predicted panel (S/P/Bld) 85 mL/min/1.73m??? Normal >=60 [facility] Comment on above: Order Comment: Speci men Type: BLOOD SPECIMENOrdering Facility: [facility] Address: [address] [place] [address] Result Comment: Carol mated Glomerular Filtration Rate [...] GFR. Performed By: #### 2 4323-8, 3083-11 ####[facility] LABCLIA [id number] [place] [address] Glucose [Mass/Vol] 104 mg/dL High 74-99 [facility] Comment on above: Order Comment: Sara randle Type: BLOOD SPECIMENOrdering Facility: [facility] Address: [address] [place] [address] Result Comment: The [place] [employer] (ADA) provides guidance for cutoff [...] Standards of Medical Care in Diabetes 2016, [place] [employer]. Diabetes Care. 2016.39(Suppl 1). Performed By: #### 2 4323-8, 3083- ####[facility] LABCLIA [id number] [place] [address] Potassium [Moles/Vol] 4.3 mmol/L Normal 3.7-5.1 [facility] Comment on above: Order Comment: Speci men Type: BLOOD SPECIMENOrdering Facility: [facility] Address: [address] [place] [place] [id number] Performed By: #### 2 4323-8, 308-1 ####[facility] LABCLIA [id number] [place] [address] Protein [Mass/Vol] 7.3 g/dL Normal 6.3-8.0 [facility] Comment on above: Order Comment: Speci men Type: BLOOD SPECIMENOrdering Facility: [facility] Address: [address] [place] [address] Performed By: #### 2 4323-8, 3083- ####[facility] LABIA [id number] [place] [address] Sodium [Moles/Vol] 139 mmol/L Normal 136-144 [facility] Comment on above: Order Comment: Speci men Type: BLOOD SPECIMENOrdering Facility: [facility] Address: [address] [place] [address] Performed By: #### 2 4323-8, 3083- ####[facility] LABCLIA [id number] [place] [address] Urea nitrogen [Mass/Vol] 19 mg/dL Normal 9-24 [facility] Comment on above: Order Comment: Speci men Type: BLOOD SPECIMENOrdering Facility: [facility] Address: [address] [place], [place] [address] Performed By: #### 2 4323-8, 3083- ####[facility] LABCLIA [id number] [place] [address] Urate SerPl-ncon 09-02- 3 Urate [Mass/Vol] 6.4 mg/dL Normal 4.0-8.1 [facility] Comment on above: Order Comment: Speci men Type: BLOOD SPECIMENOrdering Facility: [facility] Address: [address] [place] [address] Performed By: #### 2 4323-8, 3084-1 ####[facility] LABCLIA [id number] [place] [address] Consultation Noteon 08-08-20 Consultation Note [id number]#[id number] Normal [facility] CBC W Auto Differential pane l (Bld)on 08-05-2023 Basophils (Bld) [#/Vol] 0.08 10*3/uL Normal <0.11 [facility] Comment on above: Order Comment: Speci men Type: BLOOD SPECIMENOrdering Facility: [facility] Address: [address] [place] [address] Performed By: #### 5 7021-8 ####[facility] LABCLIA [id number] [place] [address] Basophils/100 WBC (Bld) 1.3 % Normal [facility] Comment on above: Order Comment: Speci men Type: BLOOD SPECIMENOrdering Facility: [facility] Address: [address] [place] [address] Performed By: #### 5 7021-8 ####[facility] LABCLIA [id number] [place] [address] Differential cell count method Nom (Bld) Auto Normal [facility] Comment on above: Order Comment: Speci men Type: BLOOD SPECIMENOrdering Facility: [facility] Address: [address] [place] [address] Performed By: #### 5 7021-8 ####[facility] LABCLIA [id number] [place] [address] Eosinophils (Bld) [#/Vol] 0.27 10*3/uL Normal <0.46 [facility] Comment on above: Order Comment: Speci men Type: BLOOD SPECIMENOrdering Facility: [facility] Address: [address] [place] [address] Performed By: #### 5 7021-8 ####[facility] LABCLIA [id number] [place] [address] Eosinophils/100 WBC (Bld) 4.4 % Normal [facility] Comment on above: Order Comment: Speci men Type: BLOOD SPECIMENOrdering Facility: [facility] Address: [address] [place] [address] Performed By: #### 5 7021-8 ####[facility] LABCLIA [id number] [place] [address] Erythrocyte distribution width (RBC) [Ratio] 16.2 % High 11.5-15.0 [facility] Comment on above: Order Comment: Speci men Type: BLOOD SPECIMENOrdering Facility: [facility] Address: [address] [place] [address] Performed By: #### 5 7021-8 ####[facility] LABCLIA [id number] [place] [address] Hematocrit (Bld) [Volume fraction] 41.6 % Normal 39.0-51.0 [facility] Comment on above: Order Comment: Speci men Type: BLOOD SPECIMENOrdering Facility: [facility] Address: [address] [place] [address] Performed By: #### 5 7021-8 ####[facility] LABCLIA [id number] [place] [address] Hemoglobin (Bld) [Mass/Vol] 13.8 g/dL Normal 13.0-17.0 [facility] Comment on above: Order Comment: Speci men Type: BLOOD SPECIMENOrdering Facility: [facility] Address: [address] [place] [address] Performed By: #### 5 7021-8 ####[facility] LABCLIA [id number] [place] [address] Immature granulocytes (Bld) [#/Vol] 0.06 10*3/uL Normal <0.10 [facility] Comment on above: Order Comment: Speci men Type: BLOOD SPECIMENOrdering Facility: [facility] Address: [address] [place] [address] Performed By: #### 5 7021-8 ####[facility] LABCLIA [id number] [place] [address] Immature granulocytes/100 WBC (Bld) 1.0 % Normal [facility] Comment on above: Order Comment: Speci men Type: BLOOD SPECIMENOrdering Facility: [facility] Address: [address] [place] [address] Performed By: #### 5 7021-8 ####[facility] LABCLIA [id number] [place] [address] Lymphocytes (Bld) [#/Vol] 0.46 10*3/uL Low 1.00-4.00 [facility] Comment on above: Order Comment: Speci men Type: BLOOD SPECIMENOrdering Facility: [facility] Address: [address] [place] [address] Performed By: #### 5 7021-8 ####[facility] LABCLIA [id number] [place] [address] Lymphocytes/100 WBC (Bld) 7.6 % Normal [facility] Comment on above: Order Comment: Speci men Type: BLOOD SPECIMENOrdering Facility: [facility] Address: [address] [place] [address] Performed By: #### 5 7021-8 ####[facility] LABCLIA [id number] [place] [address] MCH (RBC) [Entitic mass] 29.5 pg Normal 26.0-34.0 [facility] Comment on above: Order Comment: Speci men Type: BLOOD SPECIMENOrdering Facility: [facility] Address: [address] [place] [address] Performed By: #### 5 7021-8 ####[facility] LABCLIA [id number] [place] [address] MCHC (RBC) [Mass/Vol] 33.2 g/dL Normal 30.5-36.0 [facility] Comment on above: Order Comment: Speci men Type: BLOOD SPECIMENOrdering Facility: [facility] Address: [address] [place] [address] Performed By: #### 5 7021-8 ####[facility] LABCLIA [id number] [place] [address] MCV (RBC) [Entitic vol] 88.9 fL Normal 80.0-100.0 [facility] Comment on above: Order Comment: Speci men Type: BLOOD SPECIMENOrdering Facility: [facility] Address: [address] [place] [address] Performed By: #### 5 7021-8 ####[facility] LABIA [id number] [place] [address] Monocytes (Bld) [#/Vol] 1.03 10*3/uL High <0.87 [facility] Comment on above: Order Comment: Speci men Type: BLOOD SPECIMENOrdering Facility: [facility] Address: [address] [place] [address] Performed By: #### 5 7021-8 ####[facility] LABCLIA [id number] [place] [address] Monocytes/100 WBC (Bld) 17.0 % Normal [facility] Comment on above: Order Comment: Speci men Type: BLOOD SPECIMENOrdering Facility: [facility] Address: [address] [place] [address] Performed By: #### 5 7021-8 ####[facility] LABCLIA [id number] [place] [address] Neutrophils (Bld) [#/Vol] 4.17 10*3/uL Normal 1.45-7.50 [facility] Comment on above: Order Comment: Speci men Type: BLOOD SPECIMENOrdering Facility: [facility] Address: [address] [address] Performed By: #### 5 7021-8 ####[facility] LABCLIA [id number] [place] [address] Neutrophils/100 WBC (Bld) 68.7 % Normal [facility] Comment on above: Order Comment: Speci men Type: BLOOD SPECIMENOrdering Facility: [facility] Address: [address] [address] Performed By: #### 5 7021-8 ####[facility] LABCLIA [id number] [place] [address] Nucleated RBC (Bld) [#/Vol] 10*3/uL Normal <0.01 [facility] Comment on above: Order Comment: Speci men Type: BLOOD SPECIMENOrdering Facility: [facility] Address: [address] [address] Performed By: #### 5 7021-8 ####[facility] LABCLIA [id number] [place] [address] Nucleated RBC/100 WBC (Bld) [Ratio] 0.0 /100 WBC Normal [facility] Comment on above: Order Comment: Speci men Type: BLOOD SPECIMENOrdering Facility: [facility] Address: [address] [address] Performed By: #### 5 7021-8 ####[facility] LABIA [id number] [place] [address] Platelet mean volume (Bld) [Entitic vol] 10.3 fL Normal 9.0-12.7 [facility] Comment on above: Order Comment: Speci men Type: BLOOD SPECIMENOrdering Facility: [facility] Address: [address] [place] [address] Performed By: #### 5 7021-8 ####[facility] LABCLIA [id number] [place] [address] Platelets (Bld) [#/Vol] 143 10*3/uL Low 150-400 [facility] Comment on above: Order Comment: Speci men Type: BLOOD SPECIMENOrdering Facility: [facility] Address: [address] [place] [address] Performed By: #### 5 7021-8 ####[facility] LABCLIA [id number] [place] [address] RBC (Bld) [#/Vol] 4.68 10*6/uL Normal 4.20-6.00 [facility] Comment on above: Order Comment: Speci men Type: BLOOD SPECIMENOrdering Facility: [facility] Address: [address] [place] [address] Performed By: #### 5 7021-8 ####[facility] LABCLIA [id number] [place] [address] WBC (Bld) [#/Vol] 6.07 10*3/uL Normal 3.70-11.00 [facility] Comment on above: Order Comment: Speci men Type: BLOOD SPECIMENOrdering Facility: [facility] Address: [address] [place] [address] Performed By: #### 5 7021-8 ####[facility] LABIA [id number] [place] [address] Basophils (Bld) [#/Vol] 0.08 10*3/uL <0.11 k/uL [facility] Basophils/100 WBC (Bld) 1.3 % [facility] Differential cell count method Nom (Bld) Auto [facility] Eosinophils (Bld) [#/Vol] 0.27 10*3/uL <0.46 k/uL [facility] Eosinophils/100 WBC (Bld) 4.4 % [facility] Erythrocyte distribution width (RBC) [Ratio] 16.2 % High 11.5 - 15.0 % [facility] Hematocrit (Bld) [Volume fraction] 41.6 % 39.0 - 51.0 % [facility] Hemoglobin (Bld) [Mass/Vol] 13.8 g/dL 13.0 - 17.0 g/dL [facility] Immature granulocytes (Bld) [#/Vol] 0.06 10*3/uL <0.10 k/uL [facility] Immature granulocytes/100 WBC (Bld) 1.0 % [facility] Lymphocytes (Bld) [#/Vol] 0.46 10*3/uL Low 1.00 - 4.00 k/uL [facility] Lymphocytes/100 WBC (Bld) 7.6 % [facility] MCH (RBC) [Entitic mass] 29.5 pg 26.0 - 34.0 pg [facility] MCHC (RBC) [Mass/Vol] 33.2 g/dL 30.5 - 36.0 g/dL [facility] MCV (RBC) [Entitic vol] 88.9 fL 80.0 - 100.0 fL [facility] Monocytes (Bld) [#/Vol] 1.03 10*3/uL High <0.87 k/uL [facility] Monocytes/100 WBC (Bld) 17.0 % [facility] Neutrophils (Bld) [#/Vol] 4.17 10*3/uL 1.45 - 7.50 k/uL [facility] Neutrophils/100 WBC (Bld) 68.7 % [facility] Nucleated RBC (Bld) [#/Vol] <0.01 k/uL [facility] Nucleated RBC/100 WBC (Bld) [Ratio] 0.0 /100 WBC [facility] Platelet mean volume (Bld) [Entitic vol] 10.3 fL 9.0 - 12.7 fL [facility] Platelets (Bld) [#/Vol] 143 10*3/uL Low 150 - 400 k/uL [facility] RBC (Bld) [#/Vol] 4.68 10*6/uL 4.20 - 6.00 m/uL [facility] WBC (Bld) [#/Vol] 6.07 10*3/uL 3.70 - 11.00 k/uL [facility] CNOVSPon 08-05-2023 CNOVSP Normal [facility] metabolic 2000 panelon 08-05-2023 Albumin [Mass/Vol] 4.2 g/dL Normal 3.9-4.9 [facility] Comment on above: Order Comment: Speci men Type: BLOOD SPECIMENOrdering Facility: [facility] Address: [address] [place] [address] Performed By: #### 2 4323-8 ####[facility] LABCLIA [id number] [place] [address] ALP [Catalytic activity/Vol] 198 U/L High 38-113 [facility] Comment on above: Order Comment: Speci men Type: BLOOD SPECIMENOrdering Facility: [facility] Address: [address] [address] Performed By: #### 2 4323-8 ####[facility] LABCLIA [id number] [place] [address] ALT [Catalytic activity/Vol] 19 U/L Normal 10-54 [facility] Comment on above: Order Comment: Speci men Type: BLOOD SPECIMENOrdering Facility: [facility] [facility] Address: [address] [address] Performed By: #### 2 4323-8 ####[facility] LABCLIA [id number] [place] [address] Anion gap [Moles/Vol] 9 mmol/L Normal 9-18 [facility] Comment on above: Order Comment: Speci men Type: BLOOD SPECIMENOrdering Facility: [facility] Address: [address] [address] Performed By: #### 2 4323-8 ####[facility] LABCLIA [id number] [place] [address] AST [Catalytic activity/Vol] 18 U/L Normal 14-40 [facility] Comment on above: Order Comment: Speci men Type: BLOOD SPECIMENOrdering Facility: [facility] Address: [address] [address] Performed By: #### 2 4323-8 ####[facility] LABCLIA [id number] [place] [address] Bilirubin [Mass/Vol] 0.2 mg/dL Normal 0.2-1.3 [facility] Comment on above: Order Comment: Speci men Type: BLOOD SPECIMENOrdering Facility: [facility] Address: [address] [place] [address] Performed By: #### 2 4323-8 ####[facility] LABCLIA [id number] [place] [address] Calcium [Mass/Vol] 9.5 mg/dL Normal 8.5-10.2 [facility] Comment on above: Order Comment: Speci men Type: BLOOD SPECIMENOrdering Facility: [facility] Address: [address] [place] [address] Performed By: #### 2 4323-8 ####[facility] LABCLIA [id number] [place] [address] Chloride [Moles/Vol] 107 mmol/L High 97-105 [facility] Comment on above: Order Comment: Speci men Type: BLOOD SPECIMENOrdering Facility: [facility] Address: [address] [place] [address] Performed By: #### 2 4323-8 ####[facility] LABCLIA [id number] [place] [address] CO2 [Moles/Vol] 23 mmol/L Normal 22-30 [facility] Comment on above: Order Comment: Speci men Type: BLOOD SPECIMENOrdering Facility: [facility] Address: [address] [place] [address] Performed By: #### 2 4323-8 ####[facility] LABCLIA [id number] [place] [address] Creatinine [Mass/Vol] 0.90 mg/dL Normal 0.73-1.22 [facility] Comment on above: Order Comment: Speci men Type: BLOOD SPECIMENOrdering Facility: [facility] Address: [address] [place] [address] Performed By: #### 2 4323-8 ####[facility] LABIA [id number] [place] [address] Creatinine and Glomerular filtration rate.predicted panel (S/P/Bld) 94 mL/min/1.73m??? Normal >=60 [facility] Comment on above: Order Comment: Speci men Type: BLOOD SPECIMENOrdering Facility: [facility] Address: [address] [place] [address] Result Comment: Carol mated Glomerular Filtration Rate [...] actual GFR. Performed By: #### 2 4323-8 ####[facility] LABCLIA [id number] [place] [address] Glucose [Mass/Vol] 104 mg/dL High 74-99 [facility] Comment on above: Order Comment: Sara randle Type: BLOOD SPECIMENOrdering Facility: [facility] Address: [address] [place] [address] Result Comment: The [place] [employer] (ADA) provides guidance for cutoff [...] Standards of Medical Care in Diabetes 2016, [place] [employer]. Diabetes Care. 2016.39(Suppl 1). Performed By: #### 2 4323-8 ####[facility] LABCLIA [id number] [place] [address] Potassium [Moles/Vol] 4.2 mmol/L Normal 3.7-5.1 [facility] Comment on above: Order Comment: Speci men Type: BLOOD SPECIMENOrdering Facility: [facility] Address: [address] [address] Performed By: #### 2 4323-8 ####[facility] LABCLIA [id number] [place] [address] Protein [Mass/Vol] 6.8 g/dL Normal 6.3-8.0 [facility] Comment on above: Order Comment: Speci men Type: BLOOD SPECIMENOrdering Facility: [facility] Address: [address] [place] [address] Performed By: #### 2 4323-8 ####[facility] LABIA [id number] [place] [address] Sodium [Moles/Vol] 139 mmol/L Normal 136-144 [facility] Comment on above: Order Comment: Speci men Type: BLOOD SPECIMENOrdering Facility: [facility] Address: [address] [place] [address] Performed By: #### 2 4323-8 ####[facility] LABCLIA [id number] [place] [address] Urea nitrogen [Mass/Vol] 17 mg/dL Normal 9-24 [facility] Comment on above: Order Comment: Speci men Type: BLOOD SPECIMENOrdering Facility: [facility] Address: [address] [address] Performed By: #### 2 4323-8 ####[facility] LABIA [id number] [place] [address] Albumin [Mass/Vol] 4.2 g/dL 3.9 - 4.9 g/dL [facility] ALP [Catalytic activity/Vol] 198 U/L High 38 - 113 U/L [facility] ALT [Catalytic activity/Vol] 19 U/L 10 - 54 U/L [facility] Anion gap [Moles/Vol] 9 mmol/L 9 - 18 mmol/L [facility] AST [Catalytic activity/Vol] 18 U/L 14 - 40 U/L [facility] Bilirubin [Mass/Vol] 0.2 mg/dL 0.2 - 1 .3 mg/dL [facility] Calcium [Mass/Vol] 9.5 mg/dL 8.5 - 10. 2 mg/dL [facility] Chloride [Moles/Vol] 107 mmol/L High 97 - 10 5 mmol/L [facility] CO2 [Moles/Vol] 23 mmol/L 22 - 30 mmol/L [facility] Creatinine [Mass/Vol] 0.90 mg/dL 0.73 - 1.22 mg/dL [facility] Estimated Glomerular Filtration Rate 94 mL/min/1.73m >=60 mL/min/1.7 3m [facility] Glucose [Mass/Vol] 104 mg/dL High 74 - 99 mg/dL [facility] Potassium [Moles/Vol] 4.2 mmol/L 3.7 - 5.1 mmol/L [facility] Protein [Mass/Vol] 6.8 g/dL 6.3 - 8.0 g/dL [facility] Sodium [Moles/Vol] 139 mmol/L 136 - 144 mmol/L [facility] Urea nitrogen [Mass/Vol] 17 mg/dL 9 - 24 mg/dL [facility] CNPNon 08-04-2023 CNPN Normal [facility] Basic metabolic 2000 panelon 07-22-2023 Anion gap [Moles/Vol] 13 mmol/L Normal 9-18 [facility] Comment on above: Order Comment: Speci men Type: BLOOD SPECIMENOrdering Facility: [facility] Address: [address] [place] [id number] Performed By: #### 2 4321-2, 3084-1 ####[facility] LABCLIA [id number] [place] [address] Calcium [Mass/Vol] 9.7 mg/dL Normal 8.5-10.2 [facility] Comment on above: Order Comment: Speci men Type: BLOOD SPECIMENOrdering Facility: [facility] Address: [address] [address] Performed By: #### 2 4321-2, 308- ####[facility] LABCLIA [id number] [place] [address] Chloride [Moles/Vol] 105 mmol/L Normal 97-105 [facility] Comment on above: Order Comment: Speci men Type: BLOOD SPECIMENOrdering Facility: [facility] Address: [address] [address] Performed By: #### 2 4321-2, 308- ####[facility] LABCLIA [id number] [place] [address] CO2 [Moles/Vol] 23 mmol/L Normal 22-30 [facility] Comment on above: Order Comment: Speci men Type: BLOOD SPECIMENOrdering Facility: [facility] Address: [address] [place] [address] Performed By: #### 2 4321-2, 3083- ####[facility] LABCLIA [id number] [place] [address] Creatinine [Mass/Vol] 0.96 mg/dL Normal 0.73-1.22 [facility] Comment on above: Order Comment: Speci men Type: BLOOD SPECIMENOrdering Facility: [facility] Address: [address] [place] [address] Performed By: #### 2 4321-2, 3083- ####[facility] LABCLIA [id number] [place] [address] Creatinine and Glomerular filtration rate.predicted panel (S/P/Bld) 87 mL/min/1.73m??? Normal >=60 [facility] Comment on above: Order Comment: Speci men Type: BLOOD SPECIMENOrdering Facility: [facility] Address: [address] [place] [address] Result Comment: Carol mated Glomerular Filtration Rate [...] GFR. Performed By: #### 2 4321-2, 3083- ####[facility] LABCLIA [id number] [place] [address] Glucose [Mass/Vol] 101 mg/dL High 74-99 [facility] Comment on above: Order Comment: Sara randle Type: BLOOD SPECIMENOrdering Facility: [facility] Address: [address] [place], [place] [id number] Result Comment: The [place] Diabetes [employer] (ADA) provides guidance for cutoff [...] Standards of Medical Care in Diabetes 2016, [place] [employer]. Diabetes Care. 2016.39(Suppl 1). Performed By: #### 2 432-2, 3083- ####[facility] LABCLIA [id number] [place] [address] Potassium [Moles/Vol] 4.7 mmol/L Normal 3.7-5.1 [facility] Comment on above: Order Comment: Sara randle Type: BLOOD SPECIMENOrdering Facility: [facility] Address: [address] [place] [address] Performed By: #### 2 4321-2, 3083- ####[facility] LABCLIA [id number] [place] [address] Sodium [Moles/Vol] 141 mmol/L Normal 136-144 [facility] Comment on above: Order Comment: Speci men Type: BLOOD SPECIMENOrdering Facility: [facility] Address: [place] [address] Performed By: #### 2 4321-2, 3084-1 ####[facility] LABCLIA [id number] [place] [address] Urea nitrogen [Mass/Vol] 14 mg/dL Normal 9-24 [facility] Comment on above: Order Comment: Speci men Type: BLOOD SPECIMENOrdering Facility: [facility] Address: [address] [facility] [place] [address] Performed By: #### 2 4321-2, 308-1 ####[facility] LABCLIA [id number] [place] [address] Anion gap [Moles/Vol] 13 mmol/L 9 - 18 mmol/L [facility] Calcium [Mass/Vol] 9.7 mg/dL 8.5 - 10. 2 mg/dL [facility] Chloride [Moles/Vol] 105 mmol/L 97 - 10 5 mmol/L [facility] CO2 [Moles/Vol] 23 mmol/L 22 - 30 mmol/L [facility] Creatinine [Mass/Vol] 0.96 mg/dL 0.73 - 1.22 mg/dL [facility] Estimated Glomerular Filtration Rate 87 mL/min/1.73m >=60 mL/min/1.7 3m [facility] Glucose [Mass/Vol] 101 mg/dL High 74 - 99 mg/dL [facility] Potassium [Moles/Vol] 4.7 mmol/L 3.7 - 5.1 mmol/L [facility] Sodium [Moles/Vol] 141 mmol/L 136 - 144 mmol/L [facility] Urea nitrogen [Mass/Vol] 14 mg/dL 9 - 24 mg/dL [facility] CBC W Auto Differential pane l (Bld)on 07-22-2023 Basophils (Bld) [#/Vol] 0.07 10*3/uL Normal <0.11 [facility] Comment on above: Order Comment: Speci men Type: BLOOD SPECIMENOrdering Facility: [facility] Address: [address] [address] Performed By: #### 5 7021-8 ####[facility] LABCLIA [id number] [place] [address] Basophils/100 WBC (Bld) 1.2 % Normal [facility] Comment on above: Order Comment: Speci men Type: BLOOD SPECIMENOrdering Facility: [facility] Address: [address] [place] [address] Performed By: #### 5 7021-8 ####[facility] LABCLIA [id number] [place] [address] Differential cell count method Nom (Bld) Auto Normal [facility] Comment on above: Order Comment: Speci men Type: BLOOD SPECIMENOrdering Facility: [facility] Address: [address] [place] [address] Performed By: #### 5 7021-8 ####[facility] LABCLIA [id number] [place] [address] Eosinophils (Bld) [#/Vol] 0.17 10*3/uL Normal <0.46 [facility] Comment on above: Order Comment: Speci men Type: BLOOD SPECIMENOrdering Facility: [facility] Address: [address] [place] [address] Performed By: #### 5 7021-8 ####[facility] LABCLIA [id number] [place] [address] Eosinophils/100 WBC (Bld) 3.0 % Normal [facility] Comment on above: Order Comment: Speci men Type: BLOOD SPECIMENOrdering Facility: [facility] Address: [address] [place] [address] Performed By: #### 5 7021-8 ####[facility] LABCLIA [id number] [place] [address] Erythrocyte distribution width (RBC) [Ratio] 16.1 % High 11.5-15.0 [facility] Comment on above: Order Comment: Speci men Type: BLOOD SPECIMENOrdering Facility: [facility] Address: [address] [place] [address] Performed By: #### 5 7021-8 ####[facility] LABCLIA [id number] [place] [address] Hematocrit (Bld) [Volume fraction] 46.9 % Normal 39.0-51.0 [facility] Comment on above: Order Comment: Speci men Type: BLOOD SPECIMENOrdering Facility: [facility] Address: [address] [place] [address] Performed By: #### 5 7021-8 ####[facility] LABCLIA [id number] [place] [address] Hemoglobin (Bld) [Mass/Vol] 15.2 g/dL Normal 13.0-17.0 [facility] Comment on above: Order Comment: Speci men Type: BLOOD SPECIMENOrdering Facility: [facility] Address: [address] [place] [address] Performed By: #### 5 7021-8 ####[facility] LABCLIA [id number] [place] [address] Immature granulocytes (Bld) [#/Vol] 0.09 10*3/uL Normal <0.10 [facility] Comment on above: Order Comment: Speci men Type: BLOOD SPECIMENOrdering Facility: [facility] Address: [address] [place] [address] Performed By: #### 5 7021-8 ####[facility] LABIA [id number] [place] [address] Immature granulocytes/100 WBC (Bld) 1.6 % Normal [facility] Comment on above: Order Comment: Speci men Type: BLOOD SPECIMENOrdering Facility: [facility] Address: [address] [place] [address] Performed By: #### 5 7021-8 ####[facility] LABCLIA [id number] [place] [address] Lymphocytes (Bld) [#/Vol] 0.26 10*3/uL Low 1.00-4.00 [facility] Comment on above: Order Comment: Speci men Type: BLOOD SPECIMENOrdering Facility: [facility] Address: [address] [place] [address] Performed By: #### 5 7021-8 ####[facility] LABCLIA [id number] [place] [address] Lymphocytes/100 WBC (Bld) 4.6 % Normal [facility] Comment on above: Order Comment: Speci men Type: BLOOD SPECIMENOrdering Facility: [facility] Address: [address] [place] [address] Performed By: #### 5 7021-8 ####[facility] LABIA [id number] [place] [address] MCH (RBC) [Entitic mass] 29.0 pg Normal 26.0-34.0 [facility] Comment on above: Order Comment: Speci men Type: BLOOD SPECIMENOrdering Facility: [facility] Address: [address] [place] [address] Performed By: #### 5 7021-8 ####[facility] LABIA [id number] [place] [address] MCHC (RBC) [Mass/Vol] 32.4 g/dL Normal 30.5-36.0 [facility] Comment on above: Order Comment: Speci men Type: BLOOD SPECIMENOrdering Facility: [facility] Address: [address] [place] [address] Performed By: #### 5 7021-8 ####[facility] LABIA [id number] [place] [address] MCV (RBC) [Entitic vol] 89.5 fL Normal 80.0-100.0 [facility] Comment on above: Order Comment: Speci men Type: BLOOD SPECIMENOrdering Facility: [facility] Address: [address] [address] Performed By: #### 5 7021-8 ####[facility] LABCLIA [id number] [place] [address] Monocytes (Bld) [#/Vol] 1.09 10*3/uL High <0.87 [facility] Comment on above: Order Comment: Speci men Type: BLOOD SPECIMENOrdering Facility: [facility] Address: [address] [place] [address] Performed By: #### 5 7021-8 ####[facility] LABCLIA [id number] [place] [address] Monocytes/100 WBC (Bld) 19.3 % Normal [facility] Comment on above: Order Comment: Speci men Type: BLOOD SPECIMENOrdering Facility: [facility] Address: [address] [address] Performed By: #### 5 7021-8 ####[facility] LABCLIA [id number] [place] [address] Neutrophils (Bld) [#/Vol] 3.97 10*3/uL Normal 1.45-7.50 [facility] Comment on above: Order Comment: Speci men Type: BLOOD SPECIMENOrdering Facility: [facility] Address: [address] [place] [address] Performed By: #### 5 7021-8 ####[facility] LABCLIA [id number] [place] [address] Neutrophils/100 WBC (Bld) 70.3 % Normal [facility] Comment on above: Order Comment: Speci men Type: BLOOD SPECIMENOrdering Facility: [facility] Address: [address] [place] [address] Performed By: #### 5 7021-8 ####[facility] LABCLIA [id number] [place] [address] Nucleated RBC (Bld) [#/Vol] 10*3/uL Normal <0.01 [facility] Comment on above: Order Comment: Speci men Type: BLOOD SPECIMENOrdering Facility: [facility] Address: [address] [place] [address] Performed By: #### 5 7021-8 ####[facility] LABCLIA [id number] [place] [address] Nucleated RBC/100 WBC (Bld) [Ratio] 0.0 /100 WBC Normal [facility] Comment on above: Order Comment: Speci men Type: BLOOD SPECIMENOrdering Facility: [facility] Address: [address] [place] [address] Performed By: #### 5 7021-8 ####[facility] LABIA [id number] [place] [address] Platelet mean volume (Bld) [Entitic vol] 10.0 fL Normal 9.0-12.7 [facility] Comment on above: Order Comment: Speci men Type: BLOOD SPECIMENOrdering Facility: [facility] Address: [address] [place] [address] Performed By: #### 5 7021-8 ####[facility] LABCLIA [id number] [place] [address] Platelets (Bld) [#/Vol] 242 10*3/uL Normal 150-400 [facility] Comment on above: Order Comment: Speci men Type: BLOOD SPECIMENOrdering Facility: [facility] Address: [address] [place] [address] Performed By: #### 5 7021-8 ####[facility] LABIA [id number] [place] [address] RBC (Bld) [#/Vol] 5.24 10*6/uL Normal 4.20-6.00 [facility] Comment on above: Order Comment: Speci men Type: BLOOD SPECIMENOrdering Facility: [facility] Address: [address] [address] Performed By: #### 5 7021-8 ####[facility] LABCLIA [id number] [place] [address] WBC (Bld) [#/Vol] 5.65 10*3/uL Normal 3.70-11.00 [facility] Comment on above: Order Comment: Speci men Type: BLOOD SPECIMENOrdering Facility: [facility] Address: [address] [address] Performed By: #### 5 7021-8 ####[facility] LABIA [id number] [place] [address] Basophils (Bld) [#/Vol] 0.07 10*3/uL <0.11 k/uL [facility] Basophils/100 WBC (Bld) 1.2 % [facility] Differential cell count method Nom (Bld) Auto [facility] Eosinophils (Bld) [#/Vol] 0.17 10*3/uL <0.46 k/uL [facility] Eosinophils/100 WBC (Bld) 3.0 % [facility] Erythrocyte distribution width (RBC) [Ratio] 16.1 % High 11.5 - 15.0 % [facility] Hematocrit (Bld) [Volume fraction] 46.9 % 39.0 - 51.0 % [facility] Hemoglobin (Bld) [Mass/Vol] 15.2 g/dL 13.0 - 17.0 g/dL [facility] Immature granulocytes (Bld) [#/Vol] 0.09 10*3/uL <0.10 k/uL [facility] Immature granulocytes/100 WBC (Bld) 1.6 % [facility] Lymphocytes (Bld) [#/Vol] 0.26 10*3/uL Low 1.00 - 4.00 k/uL [facility] Lymphocytes/100 WBC (Bld) 4.6 % [facility] MCH (RBC) [Entitic mass] 29.0 pg 26.0 - 34.0 pg [facility] MCHC (RBC) [Mass/Vol] 32.4 g/dL 30.5 - 36.0 g/dL [facility] MCV (RBC) [Entitic vol] 89.5 fL 80.0 - 100.0 fL [facility] Monocytes (Bld) [#/Vol] 1.09 10*3/uL High <0.87 k/uL [facility] Monocytes/100 WBC (Bld) 19.3 % [facility] Neutrophils (Bld) [#/Vol] 3.97 10*3/uL 1.45 - 7.50 k/uL [facility] Neutrophils/100 WBC (Bld) 70.3 % [facility] Nucleated RBC (Bld) [#/Vol] <0.01 k/uL [facility] Nucleated RBC/100 WBC (Bld) [Ratio] 0.0 /100 WBC [facility] Platelet mean volume (Bld) [Entitic vol] 10.0 fL 9.0 - 12.7 fL [facility] Platelets (Bld) [#/Vol] 242 10*3/uL 150 - 400 k/uL [facility] RBC (Bld) [#/Vol] 5.24 10*6/uL 4.20 - 6.00 m/uL [facility] WBC (Bld) [#/Vol] 5.65 10*3/uL 3.70 - 11.00 k/uL [facility] URIC ACID BLOODon 07-22-2023 Urate [Mass/Vol] 6.1 mg/dL 4.0 - 8.1 mg/dL [facility] Urate SerPl-mCncon Urate [Mass/Vol] 6.1 mg/dL Normal 4.0-8.1 [facility] Comment on above: Order Comment: Speci men Type: BLOOD SPECIMENOrdering Facility: [facility] Address: [address] [place] [address] Performed By: #### 2 4321-2, 3084-1 ####[facility] LABCLIA [id number] [place] [address] CBC W Auto Differential pane l (Bld)on 07-08-2023 Basophils (Bld) [#/Vol] 0.06 10*3/uL Normal <0.11 [facility] Comment on above: Order Comment: Speci men Type: BLOOD SPECIMENOrdering Facility: [facility] Address: [address] [address] Performed By: #### 5 7021-8 ####[facility] LABCLIA [id number] [place] [address] Basophils/100 WBC (Bld) 0.8 % Normal [facility] Comment on above: Order Comment: Speci men Type: BLOOD SPECIMENOrdering Facility: [facility] Address: [address] [address] Performed By: #### 5 7021-8 ####[facility] LABCLIA [id number] [place] [address] Differential cell count method Nom (Bld) Auto Normal [facility] Comment on above: Order Comment: Speci men Type: BLOOD SPECIMENOrdering Facility: [facility] Address: [address] [address] Performed By: #### 5 7021-8 ####[facility] LABCLIA [id number] [place] [address] Eosinophils (Bld) [#/Vol] 0.24 10*3/uL Normal <0.46 [facility] Comment on above: Order Comment: Speci men Type: BLOOD SPECIMENOrdering Facility: [facility] Address: [address] [address] Performed By: #### 5 7021-8 ####[facility] LABCLIA [id number] [place] [address] Eosinophils/100 WBC (Bld) 3.1 % Normal [facility] Comment on above: Order Comment: Speci men Type: BLOOD SPECIMENOrdering Facility: [facility] Address: [address] [place] [address] Performed By: #### 5 7021-8 ####[facility] LABCLIA [id number] [place] [address] Erythrocyte distribution width (RBC) [Ratio] 15.9 % High 11.5-15.0 [facility] Comment on above: Order Comment: Speci men Type: BLOOD SPECIMENOrdering Facility: [facility] Address: [address] [place] [address] Performed By: #### 5 7021-8 ####[facility] LABCLIA [id number] [place] [address] Hematocrit (Bld) [Volume fraction] 41.1 % Normal 39.0-51.0 [facility] Comment on above: Order Comment: Speci men Type: BLOOD SPECIMENOrdering Facility: [facility] Address: [address] [place] [address] Performed By: #### 5 7021-8 ####[facility] LABCLIA [id number] [place] [address] Hemoglobin (Bld) [Mass/Vol] 13.3 g/dL Normal 13.0-17.0 [facility] Comment on above: Order Comment: Speci men Type: BLOOD SPECIMENOrdering Facility: [facility] Address: [address] [place] [address] Performed By: #### 5 7021-8 ####[facility] LABCLIA [id number] [place] [address] Immature granulocytes (Bld) [#/Vol] 0.03 10*3/uL Normal <0.10 [facility] Comment on above: Order Comment: Speci men Type: BLOOD SPECIMENOrdering Facility: [facility] Address: [address] [place] [address] Performed By: #### 5 7021-8 ####[facility] LABCLIA [id number] [place] [address] Immature granulocytes/100 WBC (Bld) 0.4 % Normal [facility] Comment on above: Order Comment: Speci men Type: BLOOD SPECIMENOrdering Facility: [facility] Address: [address] [place] [address] Performed By: #### 5 7021-8 ####[facility] LABCLIA [id number] [place] [address] Lymphocytes (Bld) [#/Vol] 0.25 10*3/uL Low 1.00-4.00 [facility] Comment on above: Order Comment: Speci men Type: BLOOD SPECIMENOrdering Facility: [facility] Address: [address] [place] [address] Performed By: #### 5 7021-8 ####[facility] LABCLIA [id number] [place] [address] Lymphocytes/100 WBC (Bld) 3.2 % Normal [facility] Comment on above: Order Comment: Speci men Type: BLOOD SPECIMENOrdering Facility: [facility] Address: [address] [place] [address] Performed By: #### 5 7021-8 ####[facility] LABCLIA [id number] [place] [address] MCH (RBC) [Entitic mass] 28.8 pg Normal 26.0-34.0 [facility] Comment on above: Order Comment: Speci men Type: BLOOD SPECIMENOrdering Facility: [facility] Address: [address] [place] [address] Performed By: #### 5 7021-8 ####[facility] LABCLIA [id number] [place] [address] MCHC (RBC) [Mass/Vol] 32.4 g/dL Normal 30.5-36.0 [facility] Comment on above: Order Comment: Speci men Type: BLOOD SPECIMENOrdering Facility: [facility] Address: [address] [place] [address] Performed By: #### 5 7021-8 ####[facility] LABCLIA [id number] [place] [address] MCV (RBC) [Entitic vol] 89.0 fL Normal 80.0-100.0 [facility] Comment on above: Order Comment: Speci men Type: BLOOD SPECIMENOrdering Facility: [facility] Address: [address] [place] [address] Performed By: #### 5 7021-8 ####[facility] LABCLIA [id number] [place] [address] Monocytes (Bld) [#/Vol] 0.52 10*3/uL Normal <0.87 [facility] Comment on above: Order Comment: Speci men Type: BLOOD SPECIMENOrdering Facility: [facility] Address: [address] [address] Performed By: #### 5 7021-8 ####[facility] LABCLIA [id number] [place] [address] Monocytes/100 WBC (Bld) 6.6 % Normal [facility] Comment on above: Order Comment: Speci men Type: BLOOD SPECIMENOrdering Facility: [facility] Address: [address] [place] [address] Performed By: #### 5 7021-8 ####[facility] LABCLIA [id number] [place] [address] Neutrophils (Bld) [#/Vol] 6.73 10*3/uL Normal 1.45-7.50 [facility] Comment on above: Order Comment: Speci men Type: BLOOD SPECIMENOrdering Facility: [facility] Address: [address] [address] Performed By: #### 5 7021-8 ####[facility] LABCLIA [id number] [place] [address] Neutrophils/100 WBC (Bld) 85.9 % Normal [facility] Comment on above: Order Comment: Speci men Type: BLOOD SPECIMENOrdering Facility: [facility] Address: [address] [place] [address] Performed By: #### 5 7021-8 ####[facility] LABCLIA [id number] [place] [address] Nucleated RBC (Bld) [#/Vol] 10*3/uL Normal <0.01 [facility] Comment on above: Order Comment: Speci men Type: BLOOD SPECIMENOrdering Facility: [facility] Address: [address] [place] [address] Performed By: #### 5 7021-8 ####[facility] LABCLIA [id number] [place] [address] Nucleated RBC/100 WBC (Bld) [Ratio] 0.0 /100 WBC Normal [facility] Comment on above: Order Comment: Speci men Type: BLOOD SPECIMENOrdering Facility: [facility] Address: [address] [place] [address] Performed By: #### 5 7021-8 ####[facility] LABCLIA [id number] [place] [address] Platelet mean volume (Bld) [Entitic vol] 10.1 fL Normal 9.0-12.7 [facility] Comment on above: Order Comment: Speci men Type: BLOOD SPECIMENOrdering Facility: [facility] Address: [address] [place] [address] Performed By: #### 5 7021-8 ####[facility] LABCLIA [id number] [place] [address] Platelets (Bld) [#/Vol] 146 10*3/uL Low 150-400 [facility] Comment on above: Order Comment: Speci men Type: BLOOD SPECIMENOrdering Facility: [facility] Address: [address] [place] [address] Performed By: #### 5 7021-8 ####[facility] LABCLIA [id number] [place] [address] RBC (Bld) [#/Vol] 4.62 10*6/uL Normal 4.20-6.00 [facility] Comment on above: Order Comment: Speci men Type: BLOOD SPECIMENOrdering Facility: [facility] Address: [address] [address] Performed By: #### 5 7021-8 ####[facility] LABCLIA [id number] [place] [address] WBC (Bld) [#/Vol] 7.83 10*3/uL Normal 3.70-11.00 [facility] Comment on above: Order Comment: Speci men Type: BLOOD SPECIMENOrdering Facility: [facility] Address: [address] [address] Performed By: #### 5 7021-8 ####[facility] LABCLIA [id number] [place] [address] Basophils (Bld) [#/Vol] 0.06 10*3/uL <0.11 k/uL [facility] Basophils/100 WBC (Bld) 0.8 % [facility] Differential cell count method Nom (Bld) Auto [facility] Eosinophils (Bld) [#/Vol] 0.24 10*3/uL <0.46 k/uL [facility] Eosinophils/100 WBC (Bld) 3.1 % [facility] Erythrocyte distribution width (RBC) [Ratio] 15.9 % High 11.5 - 15.0 % [facility] Hematocrit (Bld) [Volume fraction] 41.1 % 39.0 - 51.0 % [facility] Hemoglobin (Bld) [Mass/Vol] 13.3 g/dL 13.0 - 17.0 g/dL [facility] Immature granulocytes (Bld) [#/Vol] 0.03 10*3/uL <0.10 k/uL [facility] Immature granulocytes/100 WBC (Bld) 0.4 % [facility] Lymphocytes (Bld) [#/Vol] 0.25 10*3/uL Low 1.00 - 4.00 k/uL [facility] Lymphocytes/100 WBC (Bld) 3.2 % [facility] MCH (RBC) [Entitic mass] 28.8 pg 26.0 - 34.0 pg [facility] MCHC (RBC) [Mass/Vol] 32.4 g/dL 30.5 - 36.0 g/dL [facility] MCV (RBC) [Entitic vol] 89.0 fL 80.0 - 100.0 fL [facility] Monocytes (Bld) [#/Vol] 0.52 10*3/uL <0.87 k/uL [facility] Monocytes/100 WBC (Bld) 6.6 % [facility] Neutrophils (Bld) [#/Vol] 6.73 10*3/uL 1.45 - 7.50 k/uL [facility] Neutrophils/100 WBC (Bld) 85.9 % [facility] Nucleated RBC (Bld) [#/Vol] <0.01 k/uL [facility] Nucleated RBC/100 WBC (Bld) [Ratio] 0.0 /100 WBC [facility] Platelet mean volume (Bld) [Entitic vol] 10.1 fL 9.0 - 12.7 fL [facility] Platelets (Bld) [#/Vol] 146 10*3/uL Low 150 - 400 k/uL [facility] RBC (Bld) [#/Vol] 4.62 10*6/uL 4.20 - 6.00 m/uL [facility] WBC (Bld) [#/Vol] 7.83 10*3/uL 3.70 - 11.00 k/uL [facility] CNOVSPon 07-08-2023 CNOVSP Normal [facility] Comprehensive metabolic 2000 panelon 07-08-2023 Albumin [Mass/Vol] 3.9 g/dL Normal 3.9-4.9 [facility] Comment on above: Order Comment: Speci men Type: BLOOD SPECIMENOrdering Facility: [facility] Address: [address] [address] Performed By: #### 2 4323-8, 3084-1 ####[facility] LABIA [id number] [place] [address] ALP [Catalytic activity/Vol] 228 U/L High 38-113 [facility] Comment on above: Order Comment: Speci men Type: BLOOD SPECIMENOrdering Facility: [facility] Address: [address] [address] Performed By: #### 2 4323-8, 3083- ####[facility] LABCLIA [id number] [place] [address] ALT [Catalytic activity/Vol] 19 U/L Normal 10-54 [facility] Comment on above: Order Comment: Speci men Type: BLOOD SPECIMENOrdering Facility: [facility] Address: [address] [place] [address] Performed By: #### 2 4323-8, 3083- ####[facility] LABCLIA [id number] [place] [address] Anion gap [Moles/Vol] 11 mmol/L Normal 9-18 [facility] Comment on above: Order Comment: Speci men Type: BLOOD SPECIMENOrdering Facility: [facility] Address: [address] [place] [address] Performed By: #### 2 4323-8, 3083-11 ####[facility] LABCLIA [id number] [place] [address] AST [Catalytic activity/Vol] 17 U/L Normal 14-40 [facility] Comment on above: Order Comment: Speci men Type: BLOOD SPECIMENOrdering Facility: [facility] Address: [address] [place] [address] Performed By: #### 2 4323-8, 3083-11 ####[facility] LABCLIA [id number] [place] [address] Bilirubin [Mass/Vol] 0.3 mg/dL Normal 0.2-1.3 [facility] Comment on above: Order Comment: Speci men Type: BLOOD SPECIMENOrdering Facility: [facility] Address: [address] [place] [address] Performed By: #### 2 4323-8, 308- ####[facility] LABCLIA [id number] [place] [address] Calcium [Mass/Vol] 9.3 mg/dL Normal 8.5-10.2 [facility] Comment on above: Order Comment: Speci men Type: BLOOD SPECIMENOrdering Facility: [facility] Address: [address] [place] [address] Performed By: #### 2 4323-8, 3083- ####[facility] LABCLIA [id number] [place] [address] Chloride [Moles/Vol] 102 mmol/L Normal 97-105 [facility] Comment on above: Order Comment: Speci men Type: BLOOD SPECIMENOrdering Facility: [facility] Address: [address] [place] [address] Performed By: #### 2 4323-8, 3083- ####[facility] LABCLIA [id number] [place] [address] CO2 [Moles/Vol] 22 mmol/L Normal 22-30 [facility] Comment on above: Order Comment: Speci men Type: BLOOD SPECIMENOrdering Facility: [facility] Address: [address] [place] [address] Performed By: #### 2 4323-8, 3083-11 ####[facility] LABCLIA [id number] [place] [address] Creatinine [Mass/Vol] 0.90 mg/dL Normal 0.73-1.22 [facility] Comment on above: Order Comment: Speci men Type: BLOOD SPECIMENOrdering Facility: [facility] Address: [address] [place] [address] Performed By: #### 2 4323-8, 3083-11 ####[facility] LABCLIA [id number] [place] [address] Creatinine and Glomerular filtration rate.predicted panel (S/P/Bld) 94 mL/min/1.73m??? Normal >=60 [facility] Comment on above: Order Comment: Speci men Type: BLOOD SPECIMENOrdering Facility: [facility] Address: [address] [place] [address] Result Comment: Carol mated Glomerular Filtration Rate [...] GFR. Performed By: #### 2 4323-8, 3083-11 ####[facility] LABCLIA [id number] [place] [address] Glucose [Mass/Vol] 119 mg/dL High 74-99 [facility] Comment on above: Order Comment: Sara randle Type: BLOOD SPECIMENOrdering Facility: [facility] Address: [address] [address] Result Comment: The [place] [employer] (ADA) provides guidance for cutoff [...] Standards of Medical Care in Diabetes 2016, [place] [employer]. Diabetes Care. 2016.39(Suppl 1). Performed By: #### 2 4323-8, 3083-11 ####[facility] LABCLIA [id number] [place] [address] Potassium [Moles/Vol] 4.2 mmol/L Normal 3.7-5.1 [facility] Comment on above: Order Comment: Sara randle Type: BLOOD SPECIMENOrdering Facility: [facility] Address: [address] [id number] Performed By: #### 2 4323-8, 3083-11 ####[facility] LABCLIA [id number] [place] [address] Protein [Mass/Vol] 6.9 g/dL Normal 6.3-8.0 [facility] Comment on above: Order Comment: Speci men Type: BLOOD SPECIMENOrdering Facility: [facility] Address: [address] [place] [address] Performed By: #### 2 4323-8, 3084-1 ####[facility] LABCLIA [id number] [place] [address] Sodium [Moles/Vol] 135 mmol/L Low 136-144 [facility] Comment on above: Order Comment: Speci men Type: BLOOD SPECIMENOrdering Facility: [facility] Address: [address] [place] [address] Performed By: #### 2 4323-8, 308-1 ####[facility] LABCLIA [id number] [place] [address] Urea nitrogen [Mass/Vol] 15 mg/dL Normal 9-24 [facility] Comment on above: Order Comment: Speci men Type: BLOOD SPECIMENOrdering Facility: [facility] Address: [address] [place] [address] Performed By: #### 2 4323-8, 308-1 ####[facility] LABIA [id number] [place] [address] Albumin [Mass/Vol] 3.9 g/dL 3.9 - 4.9 g/dL [facility] ALP [Catalytic activity/Vol] 228 U/L High 38 - 113 U/L [facility] ALT [Catalytic activity/Vol] 19 U/L 10 - 54 U/L [facility] Anion gap [Moles/Vol] 11 mmol/L 9 - 18 mmol/L [facility] AST [Catalytic activity/Vol] 17 U/L 14 - 40 U/L [facility] Bilirubin [Mass/Vol] 0.3 mg/dL 0.2 - 1 .3 mg/dL [facility] Calcium [Mass/Vol] 9.3 mg/dL 8.5 - 10. 2 mg/dL [facility] Chloride [Moles/Vol] 102 mmol/L 97 - 10 5 mmol/L [facility] CO2 [Moles/Vol] 22 mmol/L 22 - 30 mmol/L [facility] Creatinine [Mass/Vol] 0.90 mg/dL 0.73 - 1.22 mg/dL [facility] Estimated Glomerular Filtration Rate 94 mL/min/1.73m >=60 mL/min/1.7 3m [facility] Glucose [Mass/Vol] 119 mg/dL High 74 - 99 mg/dL [facility] Potassium [Moles/Vol] 4.2 mmol/L 3.7 - 5.1 mmol/L [facility] Protein [Mass/Vol] 6.9 g/dL 6.3 - 8.0 g/dL [facility] Sodium [Moles/Vol] 135 mmol/L Low 136 - 144 mmol/L [facility] Urea nitrogen [Mass/Vol] 15 mg/dL 9 - 24 mg/dL [facility] Laboratory - Chemistry and C hemistry - challengeon 07-08-2023 Urate [Mass/Vol] 5.7 mg/dL 4.0 - 8.1 mg/dL [facility] Urate SerPl-mCncon Urate [Mass/Vol] 5.7 mg/dL Normal 4.0-8.1 [facility] Comment on above: Order Comment: Speci men Type: BLOOD SPECIMENOrdering Facility: [facility] Address: [address] [place] [phone] Performed By: #### 2 4323-8, 3084-1 ####[facility] LABCLIA [id number] [place] [address] CNPNon 07-02-2023 CNPN Normal [facility] CNPNon 06-27-2023 CNPN Normal [facility] CNPNon 06-25-2023 CNPN Normal [facility] Basic metabolic 2000 panelon 06-19-2023 Anion gap [Moles/Vol] 9 mmol/L Normal 9-18 [facility] Comment on above: Order Comment: Speci men Type: BLOOD SPECIMENOrdering Facility: [facility] Address: [address] [address] Performed By: #### 2 4321-2, 308-1 ####[facility] LABCLIA [id number] [place] [address] Calcium [Mass/Vol] 9.0 mg/dL Normal 8.5-10.2 [facility] Comment on above: Order Comment: Speci men Type: BLOOD SPECIMENOrdering Facility: [facility] Address: [address] [address] Performed By: #### 2 4321-2, 308-1 ####[facility] LABCLIA [id number] [place] [address] Chloride [Moles/Vol] 102 mmol/L Normal 97-105 [facility] Comment on above: Order Comment: Speci men Type: BLOOD SPECIMENOrdering Facility: [facility] Address: [address] [address] Performed By: #### 2 4321-2, 3083- ####[facility] LABCLIA [id number] [place] [address] CO2 [Moles/Vol] 25 mmol/L Normal 22-30 [facility] Comment on above: Order Comment: Speci men Type: BLOOD SPECIMENOrdering Facility: [facility] Address: [address] [address] Performed By: #### 2 4321-2, 3083-1 ####[facility] LABCLIA [id number] [place] [address] Creatinine [Mass/Vol] 0.98 mg/dL Normal 0.73-1.22 [facility] Comment on above: Order Comment: Speci men Type: BLOOD SPECIMENOrdering Facility: [facility] Address: [address] [address] Performed By: #### 2 4321-2, 308-1 ####[facility] LABCLIA [id number] [place] [address] Creatinine and Glomerular filtration rate.predicted panel (S/P/Bld) 85 mL/min/1.73m??? Normal >=60 [facility] Comment on above: Order Comment: Sara randle Type: BLOOD SPECIMENOrdering Facility: [facility] Address: [address] [place] [address] Result Comment: Carol mated Glomerular Filtration Rate [...] GFR. Performed By: #### 2 4321-2, 3083- ####[facility] LABIA [id number] [place] [address] Glucose [Mass/Vol] 95 mg/dL Normal 74-99 [facility] Comment on above: Order Comment: Sara randle Type: BLOOD SPECIMENOrdering Facility: [facility] Address: [address] [place] [address] Result Comment: The [place] Diabetes [employer] (ADA) provides guidance for cutoff [...] Standards of Medical Care in Diabetes 2016, [place] [employer]. Diabetes Care. 2016.39(Suppl 1). Performed By: #### 2 4321-2, 3083- ####[facility] LABIA [id number] [place] [address] Potassium [Moles/Vol] 4.1 mmol/L Normal 3.7-5.1 [facility] Comment on above: Order Comment: Speci men Type: BLOOD SPECIMENOrdering Facility: [facility] Address: [address] [address] Performed By: #### 2 4321-2, 308-1 ####[facility] LABCLIA [id number] [place] [address] Sodium [Moles/Vol] 136 mmol/L Normal 136-144 [facility] Comment on above: Order Comment: Speci men Type: BLOOD SPECIMENOrdering Facility: [facility] Address: [address] [address] Performed By: #### 2 4321-2, 3083- ####[facility] LABCLIA [id number] [place] [address] Urea nitrogen [Mass/Vol] 19 mg/dL Normal 9-24 [facility] Comment on above: Order Comment: Speci men Type: BLOOD SPECIMENOrdering Facility: [facility] Address: [address] [address] Performed By: #### 2 4321-2, 3083- ####[facility] LABCLIA [id number] [place] [address] Anion gap [Moles/Vol] 9 mmol/L 9 - 18 mmol/L [facility] Calcium [Mass/Vol] 9.0 mg/dL 8.5 - 10. 2 mg/dL [facility] Chloride [Moles/Vol] 102 mmol/L 97 - 10 5 mmol/L [facility] CO2 [Moles/Vol] 25 mmol/L 22 - 30 mmol/L [facility] Creatinine [Mass/Vol] 0.98 mg/dL 0.73 - 1.22 mg/dL [facility] Estimated Glomerular Filtration Rate 85 mL/min/1.73m >=60 mL/min/1.7 3m [facility] Glucose [Mass/Vol] 95 mg/dL 74 - 99 mg/dL [facility] Potassium [Moles/Vol] 4.1 mmol/L 3.7 - 5.1 mmol/L [facility] Sodium [Moles/Vol] 136 mmol/L 136 - 144 mmol/L [facility] Urea nitrogen [Mass/Vol] 19 mg/dL 9 - 24 mg/dL [facility] CBC W Auto Differential pane l (Bld)on 06-19-2023 Basophils (Bld) [#/Vol] 0.07 10*3/uL Normal <0.11 [facility] Comment on above: Order Comment: Speci men Type: BLOOD SPECIMENOrdering Facility: [facility] Address: [address] [place] [address] Performed By: #### 5 7021-8 ####[facility] LABCLIA [id number] [place] [address] Basophils/100 WBC (Bld) 0.7 % Normal [facility] Comment on above: Order Comment: Speci men Type: BLOOD SPECIMENOrdering Facility: [facility] Address: [address] [place] [address] Performed By: #### 5 7021-8 ####[facility] LABCLIA [id number] [place] [address] Differential cell count method Nom (Bld) Auto Normal [facility] Comment on above: Order Comment: Speci men Type: BLOOD SPECIMENOrdering Facility: [facility] Address: [address] [place] [address] Performed By: #### 5 7021-8 ####[facility] LABCLIA [id number] [place] [address] Eosinophils (Bld) [#/Vol] 0.39 10*3/uL Normal <0.46 [facility] Comment on above: Order Comment: Speci men Type: BLOOD SPECIMENOrdering Facility: [facility] Address: [address] [place] [address] Performed By: #### 5 7021-8 ####[facility] LABCLIA [id number] [place] [address] Eosinophils/100 WBC (Bld) 4.1 % Normal [facility] Comment on above: Order Comment: Speci men Type: BLOOD SPECIMENOrdering Facility: [facility] Address: [address] [place] [address] Performed By: #### 5 7021-8 ####[facility] LABCLIA [id number] [place] [address] Erythrocyte distribution width (RBC) [Ratio] 16.4 % High 11.5-15.0 [facility] Comment on above: Order Comment: Speci men Type: BLOOD SPECIMENOrdering Facility: [facility] Address: [address] [place] [address] Performed By: #### 5 7021-8 ####[facility] LABCLIA [id number] [place] [address] Hematocrit (Bld) [Volume fraction] 40.4 % Normal 39.0-51.0 [facility] Comment on above: Order Comment: Speci men Type: BLOOD SPECIMENOrdering Facility: [facility] Address: [address] [place] [address] Performed By: #### 5 7021-8 ####[facility] LABCLIA [id number] [place] [address] Hemoglobin (Bld) [Mass/Vol] 13.2 g/dL Normal 13.0-17.0 [facility] Comment on above: Order Comment: Speci men Type: BLOOD SPECIMENOrdering Facility: [facility] Address: [address] [place] [address] Performed By: #### 5 7021-8 ####[facility] LABCLIA [id number] [place] [address] Immature granulocytes (Bld) [#/Vol] 0.09 10*3/uL Normal <0.10 [facility] Comment on above: Order Comment: Speci men Type: BLOOD SPECIMENOrdering Facility: [facility] Address: [address] [place] [address] Performed By: #### 5 7021-8 ####[facility] LABCLIA [id number] [place] [address] Immature granulocytes/100 WBC (Bld) 0.9 % Normal [facility] Comment on above: Order Comment: Speci men Type: BLOOD SPECIMENOrdering Facility: [facility] Address: [address] [place] [address] Performed By: #### 5 7021-8 ####[facility] LABCLIA [id number] [place] [address] Lymphocytes (Bld) [#/Vol] 0.15 10*3/uL Low 1.00-4.00 [facility] Comment on above: Order Comment: Speci men Type: BLOOD SPECIMENOrdering Facility: [facility] Address: [address] [place] [address] Performed By: #### 5 7021-8 ####[facility] LABCLIA [id number] [place] [address] Lymphocytes/100 WBC (Bld) 1.6 % Normal [facility] Comment on above: Order Comment: Speci men Type: BLOOD SPECIMENOrdering Facility: [facility] Address: [address] [place] [address] Performed By: #### 5 7021-8 ####[facility] LABCLIA [id number] [place] [address] MCH (RBC) [Entitic mass] 29.8 pg Normal 26.0-34.0 [facility] Comment on above: Order Comment: Speci men Type: BLOOD SPECIMENOrdering Facility: [facility] Address: [address] [place] [address] Performed By: #### 5 7021-8 ####[facility] LABCLIA [id number] [place] [address] MCHC (RBC) [Mass/Vol] 32.7 g/dL Normal 30.5-36.0 [facility] Comment on above: Order Comment: Speci men Type: BLOOD SPECIMENOrdering Facility: [facility] Address: [address] [place] [address] Performed By: #### 5 7021-8 ####[facility] LABCLIA [id number] [place] [address] MCV (RBC) [Entitic vol] 91.2 fL Normal 80.0-100.0 [facility] Comment on above: Order Comment: Speci men Type: BLOOD SPECIMENOrdering Facility: [facility] Address: [address] [address] Performed By: #### 5 7021-8 ####[facility] LABCLIA [id number] [place] [address] Monocytes (Bld) [#/Vol] 1.13 10*3/uL High <0.87 [facility] Comment on above: Order Comment: Speci men Type: BLOOD SPECIMENOrdering Facility: [facility] Address: [address] [address] Performed By: #### 5 7021-8 ####[facility] LABCLIA [id number] [place] [address] Monocytes/100 WBC (Bld) 11.9 % Normal [facility] Comment on above: Order Comment: Speci men Type: BLOOD SPECIMENOrdering Facility: [facility] Address: [address] [address] Performed By: #### 5 7021-8 ####[facility] LABCLIA [id number] [place] [address] Neutrophils (Bld) [#/Vol] 7.70 10*3/uL High 1.45-7.50 [facility] Comment on above: Order Comment: Speci men Type: BLOOD SPECIMENOrdering Facility: [facility] Address: [address] [address] Performed By: #### 5 7021-8 ####[facility] LABCLIA [id number] [place] [address] Neutrophils/100 WBC (Bld) 80.8 % Normal [facility] Comment on above: Order Comment: Speci men Type: BLOOD SPECIMENOrdering Facility: [facility] Address: [address] [place] [address] Performed By: #### 5 7021-8 ####[facility] LABCLIA [id number] [place] [address] Nucleated RBC (Bld) [#/Vol] 10*3/uL Normal <0.01 [facility] Comment on above: Order Comment: Speci men Type: BLOOD SPECIMENOrdering Facility: [facility] Address: [address] [place] [address] Performed By: #### 5 7021-8 ####[facility] LABIA [id number] [place] [address] Nucleated RBC/100 WBC (Bld) [Ratio] 0.0 /100 WBC Normal [facility] Comment on above: Order Comment: Speci men Type: BLOOD SPECIMENOrdering Facility: [facility] Address: [address] [place] [address] Performed By: #### 5 7021-8 ####[facility] LABCLIA [id number] [place] [address] Platelet mean volume (Bld) [Entitic vol] 9.5 fL Normal 9.0-12.7 [facility] Comment on above: Order Comment: Speci men Type: BLOOD SPECIMENOrdering Facility: [facility] Address: [address] [place] [address] Performed By: #### 5 7021-8 ####[facility] LABIA [id number] [place] [address] Platelets (Bld) [#/Vol] 217 10*3/uL Normal 150-400 [facility] Comment on above: Order Comment: Speci men Type: BLOOD SPECIMENOrdering Facility: [facility] Address: [address] [place] [address] Performed By: #### 5 7021-8 ####[facility] LABIA [id number] [place] [address] RBC (Bld) [#/Vol] 4.43 10*6/uL Normal 4.20-6.00 [facility] Comment on above: Order Comment: Speci men Type: BLOOD SPECIMENOrdering Facility: [facility] Address: [address] [place] [address] Performed By: #### 5 7021-8 ####[facility] LABIA [id number] [place] [address] WBC (Bld) [#/Vol] 9.53 10*3/uL Normal 3.70-11.00 [facility] Comment on above: Order Comment: Speci men Type: BLOOD SPECIMENOrdering Facility: [facility] Address: [address] [place] [address] Performed By: #### 5 7021-8 ####[facility] LABIA [id number] [address] [id number] Basophils (Bld) [#/Vol] 0.07 10*3/uL <0.11 k/uL [facility] Basophils/100 WBC (Bld) 0.7 % [facility] Differential cell count method Nom (Bld) Auto [facility] Eosinophils (Bld) [#/Vol] 0.39 10*3/uL <0.46 k/uL [facility] Eosinophils/100 WBC (Bld) 4.1 % [facility] Erythrocyte distribution width (RBC) [Ratio] 16.4 % High 11.5 - 15.0 % [facility] Hematocrit (Bld) [Volume fraction] 40.4 % 39.0 - 51.0 % [facility] Hemoglobin (Bld) [Mass/Vol] 13.2 g/dL 13.0 - 17.0 g/dL [facility] Immature granulocytes (Bld) [#/Vol] 0.09 10*3/uL <0.10 k/uL [facility] Immature granulocytes/100 WBC (Bld) 0.9 % [facility] Lymphocytes (Bld) [#/Vol] 0.15 10*3/uL Low 1.00 - 4.00 k/uL [facility] Lymphocytes/100 WBC (Bld) 1.6 % [facility] MCH (RBC) [Entitic mass] 29.8 pg 26.0 - 34.0 pg [facility] MCHC (RBC) [Mass/Vol] 32.7 g/dL 30.5 - 36.0 g/dL [facility] MCV (RBC) [Entitic vol] 91.2 fL 80.0 - 100.0 fL [facility] Monocytes (Bld) [#/Vol] 1.13 10*3/uL High <0.87 k/uL [facility] Monocytes/100 WBC (Bld) 11.9 % [facility] Neutrophils (Bld) [#/Vol] 7.70 10*3/uL High 1.45 - 7.50 k/uL [facility] Neutrophils/100 WBC (Bld) 80.8 % [facility] Nucleated RBC (Bld) [#/Vol] <0.01 k/uL [facility] Nucleated RBC/100 WBC (Bld) [Ratio] 0.0 /100 WBC [facility] Platelet mean volume (Bld) [Entitic vol] 9.5 fL 9.0 - 12.7 fL [facility] Platelets (Bld) [#/Vol] 217 10*3/uL 150 - 400 k/uL [facility] RBC (Bld) [#/Vol] 4.43 10*6/uL 4.20 - 6.00 m/uL [facility] WBC (Bld) [#/Vol] 9.53 10*3/uL 3.70 - 11.00 k/uL [facility] CNOVSPon 06-19-2023 CNOVSP Normal [facility] URIC ACID BLOODon 06-19-2023 Urate [Mass/Vol] 4.9 mg/dL 4.0 - 8.1 mg/dL [facility] Urate SerPl-mCncon Urate [Mass/Vol] 4.9 mg/dL Normal 4.0-8.1 [facility] Comment on above: Order Comment: Speci men Type: BLOOD SPECIMENOrdering Facility: [facility] Address: [place] [address] Performed By: #### 2 4321-2, 3084-1 ####[facility] LABCLIA [id number] [place] [address] Ambulatory Visit Summaryon 0 06-17-2023 Ambulatory Visit Summary KATIA SHAIKH :1955 Visit Date:06/17/2023 Ambulatory Visit Instructions Your Diagnosis Encounter for care related to Port-a-Cath Your Care Team Attending Physician - MIGUEL LOFTON, Chiquita Martins Primary Care Physician - EMELIA GONZALEZ MD This Is [...] reflux disease) Hypothyroidism Inguinal adenopathy Overweight Normal [facility] Ambulatory Visit Summary KATIA SHAIKH :1955 Visit Date:06/17/2023 Ambulatory Visit Instructions Your Care Team Attending Physician - MIGUEL LOFTON, Chiquita Martins Primary Care Physician - EMELIA GONZALEZ MD This Is Your Medications List levothyroxine (levothyroxine [...] reflux disease) Hypothyroidism Inguinal adenopathy Overweight Normal [facility] General Surgery Office/Clini c Noteon 06-17-2023 General Surgery Office/Clinic Note Chief Complaint post operative follow up HPI Staff 20 day post operative follow up post port insertion. Denies discomfort, no use of pain medication. Denies bleeding or drainage. Port has been accessed once without incident. History of Present Illness 3 weeks s/p right subclavian adripx-w-ytdr insertion, doing well; port used once,no problems; [...] Primary malignant neoplasm of skin: Father. Normal [facility] Comment on above: Result Comment: Elec tronically Signed By: MIGUEL LOFTON, Chiquita Mas\Date and Time Signed: 06/17/23 15:19 EDT Consultation Noteon 06-13-20 Consultation Note [id number]:127 Normal [facility] CNPNon 06-12-2023 CNPN Normal [facility] CNCNPATEDon 06-06-2023 CNCNPATED Normal [facility] CNPNon 06-06-2023 CNPN Normal [facility] CBC W Auto Differential pane l (Bld)on 06-05-2023 Basophils (Bld) [#/Vol] 0.04 10*3/uL Normal <0.11 [facility] Comment on above: Order Comment: Speci men Type: BLOOD SPECIMENOrdering Facility: [facility] Address: [address] [address] Performed By: #### 5 7021-8 ####[facility] LABCLIA [id number] [place] [address] Basophils/100 WBC (Bld) 0.3 % Normal [facility] Comment on above: Order Comment: Speci men Type: BLOOD SPECIMENOrdering Facility: [facility] Address: [address] [place] [address] Performed By: #### 5 7021-8 ####[facility] LABCLIA [id number] [place] [address] Differential cell count method Nom (Bld) Auto Normal [facility] Comment on above: Order Comment: Speci men Type: BLOOD SPECIMENOrdering Facility: [facility] Address: [address] [place] [address] Performed By: #### 5 7021-8 ####[facility] LABCLIA [id number] [place] [address] Eosinophils (Bld) [#/Vol] 10*3/uL Normal <0.46 [facility] Comment on above: Order Comment: Speci men Type: BLOOD SPECIMENOrdering Facility: [facility] Address: [address] [place] [address] Performed By: #### 5 7021-8 ####[facility] LABCLIA [id number] [place] [address] Eosinophils/100 WBC (Bld) 0.0 % Normal [facility] Comment on above: Order Comment: Speci men Type: BLOOD SPECIMENOrdering Facility: [facility] Address: [address] [place] [address] Performed By: #### 5 7021-8 ####[facility] LABCLIA [id number] [place] [address] Erythrocyte distribution width (RBC) [Ratio] 14.4 % Normal 11.5-15.0 [facility] Comment on above: Order Comment: Speci men Type: BLOOD SPECIMENOrdering Facility: [facility] Address: [address] [place] [address] Performed By: #### 5 7021-8 ####[facility] LABCLIA [id number] [place] [address] Hematocrit (Bld) [Volume fraction] 37.1 % Low 39.0-51.0 [facility] Comment on above: Order Comment: Speci men Type: BLOOD SPECIMENOrdering Facility: [facility] Address: [address] [place] [address] Performed By: #### 5 7021-8 ####[facility] LABCLIA [id number] [place] [address] Hemoglobin (Bld) [Mass/Vol] 11.8 g/dL Low 13.0-17.0 [facility] Comment on above: Order Comment: Speci men Type: BLOOD SPECIMENOrdering Facility: [facility] Address: [address] [place] [address] Performed By: #### 5 7021-8 ####[facility] LABCLIA [id number] [place] [address] Immature granulocytes (Bld) [#/Vol] 0.12 10*3/uL High <0.10 [facility] Comment on above: Order Comment: Speci men Type: BLOOD SPECIMENOrdering Facility: [facility] Address: [address] [place] [address] Performed By: #### 5 7021-8 ####[facility] LABCLIA [id number] [place] [address] Immature granulocytes/100 WBC (Bld) 0.9 % Normal [facility] Comment on above: Order Comment: Speci men Type: BLOOD SPECIMENOrdering Facility: [facility] Address: [address] [place] [address] Performed By: #### 5 7021-8 ####[facility] LABCLIA [id number] [place] [address] Lymphocytes (Bld) [#/Vol] 0.56 10*3/uL Low 1.00-4.00 [facility] Comment on above: Order Comment: Speci men Type: BLOOD SPECIMENOrdering Facility: [facility] Address: [address] [place] [address] Performed By: #### 5 7021-8 ####[facility] LABCLIA [id number] [place] [address] Lymphocytes/100 WBC (Bld) 4.0 % Normal [facility] Comment on above: Order Comment: Speci men Type: BLOOD SPECIMENOrdering Facility: [facility] Address: [address] [place] [address] Performed By: #### 5 7021-8 ####[facility] LABCLIA [id number] [place] [address] MCH (RBC) [Entitic mass] 28.4 pg Normal 26.0-34.0 [facility] Comment on above: Order Comment: Speci men Type: BLOOD SPECIMENOrdering Facility: [facility] Address: [address] [place] [address] Performed By: #### 5 7021-8 ####[facility] LABCLIA [id number] [place] [address] MCHC (RBC) [Mass/Vol] 31.8 g/dL Normal 30.5-36.0 [facility] Comment on above: Order Comment: Speci men Type: BLOOD SPECIMENOrdering Facility: [facility] Address: [address] [place] [address] Performed By: #### 5 7021-8 ####[facility] LABCLIA [id number] [place] [address] MCV (RBC) [Entitic vol] 89.4 fL Normal 80.0-100.0 [facility] Comment on above: Order Comment: Speci men Type: BLOOD SPECIMENOrdering Facility: [facility] Address: [address] [place] [address] Performed By: #### 5 7021-8 ####[facility] LABCLIA [id number] [place] [address] Monocytes (Bld) [#/Vol] 0.65 10*3/uL Normal <0.87 [facility] Comment on above: Order Comment: Speci men Type: BLOOD SPECIMENOrdering Facility: [facility] Address: [address] [address] Performed By: #### 5 7021-8 ####[facility] LABCLIA [id number] [place] [address] Monocytes/100 WBC (Bld) 4.6 % Normal [facility] Comment on above: Order Comment: Speci men Type: BLOOD SPECIMENOrdering Facility: [facility] Address: [address] [address] Performed By: #### 5 7021-8 ####[facility] LABCLIA [id number] [place] [address] Neutrophils (Bld) [#/Vol] 12.66 10*3/uL High 1.45-7.50 [facility] Comment on above: Order Comment: Speci men Type: BLOOD SPECIMENOrdering Facility: [facility] Address: [address] [address] Performed By: #### 5 7021-8 ####[facility] LABCLIA [id number] [place] [address] Neutrophils/100 WBC (Bld) 90.2 % Normal [facility] Comment on above: Order Comment: Speci men Type: BLOOD SPECIMENOrdering Facility: [facility] Address: [address] [place] [address] Performed By: #### 5 7021-8 ####[facility] LABCLIA [id number] [place] [address] Nucleated RBC (Bld) [#/Vol] 10*3/uL Normal <0.01 [facility] Comment on above: Order Comment: Speci men Type: BLOOD SPECIMENOrdering Facility: [facility] Address: [address] [place] [address] Performed By: #### 5 7021-8 ####[facility] LABCLIA [id number] [place] [address] Nucleated RBC/100 WBC (Bld) [Ratio] 0.0 /100 WBC Normal [facility] Comment on above: Order Comment: Speci men Type: BLOOD SPECIMENOrdering Facility: [facility] Address: [address] [place] [address] Performed By: #### 5 7021-8 ####[facility] LABCLIA [id number] [place] [address] Platelet mean volume (Bld) [Entitic vol] 10.1 fL Normal 9.0-12.7 [facility] Comment on above: Order Comment: Speci men Type: BLOOD SPECIMENOrdering Facility: [facility] Address: [address] [place] [address] Performed By: #### 5 7021-8 ####[facility] LABCLIA [id number] [place] [address] Platelets (Bld) [#/Vol] 334 10*3/uL Normal 150-400 [facility] Comment on above: Order Comment: Speci men Type: BLOOD SPECIMENOrdering Facility: [facility] Address: [address] [place] [address] Performed By: #### 5 7021-8 ####[facility] [id number] [place] [address] RBC (Bld) [#/Vol] 4.15 10*6/uL Low 4.20-6.00 [facility] Comment on above: Order Comment: Speci men Type: BLOOD SPECIMENOrdering Facility: [facility] Address: [address] [place] [address] Performed By: #### 5 7021-8 ####[facility] LABIA [id number] [place] [address] WBC (Bld) [#/Vol] 14.03 10*3/uL High 3.70-11.00 [facility] Comment on above: Order Comment: Speci men Type: BLOOD SPECIMENOrdering Facility: [facility] Address: [address] [place] [address] Performed By: #### 5 7021-8 ####[facility] LABIA [id number] [place] [id number] Basophils (Bld) [#/Vol] 0.04 10*3/uL <0.11 k/uL [facility] Basophils/100 WBC (Bld) 0.3 % [facility] Differential cell count method Nom (Bld) Auto [facility] Eosinophils (Bld) [#/Vol] <0.46 k/uL [facility] Eosinophils/100 WBC (Bld) 0.0 % [facility] Erythrocyte distribution width (RBC) [Ratio] 14.4 % 11.5 - 15.0 % [facility] Hematocrit (Bld) [Volume fraction] 37.1 % Low 39.0 - 51.0 % [facility] Hemoglobin (Bld) [Mass/Vol] 11.8 g/dL Low 13.0 - 17.0 g/dL [facility] Immature granulocytes (Bld) [#/Vol] 0.12 10*3/uL High <0.10 k/uL [facility] Immature granulocytes/100 WBC (Bld) 0.9 % [facility] Lymphocytes (Bld) [#/Vol] 0.56 10*3/uL Low 1.00 - 4.00 k/uL [facility] Lymphocytes/100 WBC (Bld) 4.0 % [facility] MCH (RBC) [Entitic mass] 28.4 pg 26.0 - 34.0 pg [facility] MCHC (RBC) [Mass/Vol] 31.8 g/dL 30.5 - 36.0 g/dL [facility] MCV (RBC) [Entitic vol] 89.4 fL 80.0 - 100.0 fL [facility] Monocytes (Bld) [#/Vol] 0.65 10*3/uL <0.87 k/uL [facility] Monocytes/100 WBC (Bld) 4.6 % [facility] Neutrophils (Bld) [#/Vol] 12.66 10*3/uL High 1.45 - 7.50 k/uL [facility] Neutrophils/100 WBC (Bld) 90.2 % [facility] Nucleated RBC (Bld) [#/Vol] <0.01 k/uL [facility] Nucleated RBC/100 WBC (Bld) [Ratio] 0.0 /100 WBC [facility] Platelet mean volume (Bld) [Entitic vol] 10.1 fL 9.0 - 12.7 fL [facility] Platelets (Bld) [#/Vol] 334 10*3/uL 150 - 400 k/uL [facility] RBC (Bld) [#/Vol] 4.15 10*6/uL Low 4.20 - 6.00 m/uL [facility] WBC (Bld) [#/Vol] 14.03 10*3/uL High 3.70 - 11.00 k/uL [facility] CNOVSPon 06-05-2023 CNOVSP Normal [facility] CNPNon 06-05-2023 CNPN Normal [facility] Comprehensive metabolic 2000 panelon 06-05-2023 Albumin [Mass/Vol] 3.7 g/dL Low 3.9-4.9 [facility] Comment on above: Order Comment: Speci men Type: BLOOD SPECIMENOrdering Facility: [facility] Address: [address] [place] [address] Performed By: #### 3 084-1, ####[facility] LABCLIA [id number] [place] [address] ALP [Catalytic activity/Vol] 235 U/L High 38-113 [facility] Comment on above: Order Comment: Speci men Type: BLOOD SPECIMENOrdering Facility: [facility] Address: [address] [place] [address] Performed By: #### 3 084-1, ####[facility] LABCLIA [id number] [place] [address] ALT [Catalytic activity/Vol] 26 U/L Normal 10-54 [facility] Comment on above: Order Comment: Speci men Type: BLOOD SPECIMENOrdering Facility: [facility] Address: [address] [place] [address] Performed By: #### 3 084-1, ####[facility] LABCLIA [id number] [place] [address] Anion gap [Moles/Vol] 10 mmol/L Normal 9-18 [facility] Comment on above: Order Comment: Speci men Type: BLOOD SPECIMENOrdering Facility: [facility] Address: [address] [place] [address] Performed By: #### 3 084-1, ####[facility] LABCLIA [id number] [place] [address] AST [Catalytic activity/Vol] 27 U/L Normal 14-40 [facility] Comment on above: Order Comment: Speci men Type: BLOOD SPECIMENOrdering Facility: [facility] Address: [address] [place] [address] Performed By: #### 3 084-1, ####[facility] LABCLIA [id number] [place] [address] Bilirubin [Mass/Vol] 0.2 mg/dL Normal 0.2-1.3 [facility] Comment on above: Order Comment: Speci men Type: BLOOD SPECIMENOrdering Facility: [facility] Address: [address] [place] [address] Performed By: #### 3 084-1, ####[facility] LABCLIA [id number] [place] [address] Calcium [Mass/Vol] 9.4 mg/dL Normal 8.5-10.2 [facility] Comment on above: Order Comment: Speci men Type: BLOOD SPECIMENOrdering Facility: [facility] Address: [address] [place] [address] Performed By: #### 3 084-1, ####[facility] LABCLIA [id number] [place] [address] Chloride [Moles/Vol] 102 mmol/L Normal 97-105 [facility] Comment on above: Order Comment: Speci men Type: BLOOD SPECIMENOrdering Facility: [facility] Address: [address] [place] [address] Performed By: #### 3 084-1, ####[facility] LABCLIA [id number] [place] [address] CO2 [Moles/Vol] 25 mmol/L Normal 22-30 [facility] Comment on above: Order Comment: Speci men Type: BLOOD SPECIMENOrdering Facility: [facility] Address: [address] [place] [address] Performed By: #### 3 084-1, 60982-5 ####[facility] LABCLIA [id number] [place] [address] Creatinine [Mass/Vol] 0.96 mg/dL Normal 0.73-1.22 [facility] Comment on above: Order Comment: Speci men Type: BLOOD SPECIMENOrdering Facility: [facility] Address: [address] [place] [address] Performed By: #### 3 084-1, 05442-0 ####[facility] LABCLIA [id number] [place] [address] ESTIMATED GLOMERULAR FILTRATION RATE 87 mL/min/1.73m??? Normal >=60 [facility] Comment on above: Order Comment: Sara randle Type: BLOOD SPECIMENOrdering Facility: [facility] Address: [address] [place] [address] Result Comment: Carol mated Glomerular Filtration Rate [...] actual GFR. Performed By: #### 3 084-1, 46366-0 ####[facility] LABCLIA [id number] [place] [address] Glucose [Mass/Vol] 120 mg/dL High 74-99 [facility] Comment on above: Order Comment: Sara randle Type: BLOOD SPECIMENOrdering Facility: [facility] Address: [facility] [place] [address] Result Comment: The [place] [employer] (ADA) provides guidance for cutoff [...] Standards of Medical Care in Diabetes 2016, [place] [employer]. Diabetes Care. 2016.39(Suppl 1). Performed By: #### 3 084-1, 70076-1 ####[facility] LABCLIA [id number] [place] [address] Potassium [Moles/Vol] 4.3 mmol/L Normal 3.7-5.1 [facility] Comment on above: Order Comment: Speci men Type: BLOOD SPECIMENOrdering Facility: [facility] Address: [address] [place] [address] Performed By: #### 3 084-1, 36846-6 ####[facility] [facility] LABCLIA [id number] [place] [address] Protein [Mass/Vol] 7.7 g/dL Normal 6.3-8.0 [facility] Comment on above: Order Comment: Speci men Type: BLOOD SPECIMENOrdering Facility: [facility] Address: [address] [place] [address] Performed By: #### 3 084-1, 79562-7 ####[facility] LABIA [id number] [place] [address] Sodium [Moles/Vol] 137 mmol/L Normal 136-144 [facility] Comment on above: Order Comment: Speci men Type: BLOOD SPECIMENOrdering Facility: [facility] Address: [address] [place] [address] Performed By: #### 3 084-1, 57245-5 ####[facility] LABCLIA [id number] [place] [address] Urea nitrogen [Mass/Vol] 26 mg/dL High 9-24 [facility] Comment on above: Order Comment: Speci men Type: BLOOD SPECIMENOrdering Facility: [facility] Address: [address] [place] [address] Performed By: #### 3 084-1, 76595-2 ####[facility] LABCLIA [id number] [place] [address] Albumin [Mass/Vol] 3.7 g/dL Low 3.9 - 4.9 g/dL [facility] ALP [Catalytic activity/Vol] 235 U/L High 38 - 113 U/L [facility] ALT [Catalytic activity/Vol] 26 U/L 10 - 54 U/L [facility] Anion gap [Moles/Vol] 10 mmol/L 9 - 18 mmol/L [facility] AST [Catalytic activity/Vol] 27 U/L 14 - 40 U/L [facility] Bilirubin [Mass/Vol] 0.2 mg/dL 0.2 - 1 .3 mg/dL [facility] Calcium [Mass/Vol] 9.4 mg/dL 8.5 - 10. 2 mg/dL [facility] Chloride [Moles/Vol] 102 mmol/L 97 - 10 5 mmol/L [facility] CO2 [Moles/Vol] 25 mmol/L 22 - 30 mmol/L [facility] Creatinine [Mass/Vol] 0.96 mg/dL 0.73 - 1.22 mg/dL [facility] Estimated Glomerular Filtration Rate 87 mL/min/1.73m >=60 mL/min/1.7 3m [facility] Glucose [Mass/Vol] 120 mg/dL High 74 - 99 mg/dL [facility] Potassium [Moles/Vol] 4.3 mmol/L 3.7 - 5.1 mmol/L [facility] Protein [Mass/Vol] 7.7 g/dL 6.3 - 8.0 g/dL [facility] Sodium [Moles/Vol] 137 mmol/L 136 - 144 mmol/L [facility] Urea nitrogen [Mass/Vol] 26 mg/dL High 9 - 24 mg/dL [facility] Laboratory - Chemistry and C hemistry - challengeon 06-05-2023 Urate [Mass/Vol] 8.6 mg/dL High 4.0 - 8.1 mg/dL [facility] Urate SerPl-mCncon Urate [Mass/Vol] 8.6 mg/dL High 4.0-8.1 [facility] Comment on above: Order Comment: Speci men Type: BLOOD SPECIMENOrdering Facility: [facility] Address: [address] [place] [address] Performed By: #### 3 084-1, 87755-1 ####[facility] LABCLIA [id number] [place] [id number] [facility] CNPN Normal [facility] CNPNon 06-01-2023 CNPN Normal [facility] Operative Reporton Operative Report [id number]#[id number]:127 Normal [facility] RAD - MISCon 05-29-2023 RAD - MISC [id number]#1.00CD:127 Normal [facility] Lab Reportson 05-28-2023 Lab Reports [id number]#1.00CD:127 Normal [facility] CNOVSPon 05-27-2023 CNOVSP Normal [facility] Consent for Procedure/Surger yon 05-26-2023 Consent for Procedure/Surgery [id number]#1.00CD:127 [facility] OUTSIDE SURG PATH SLIDE REVI EWon 05-23-2023 CASE REPORT Normal [facility] Comment on above: Order Comment: Speci men Type: SLIDEOrdering Facility: AP Outside Review Address: , , Result Comment: Surg ical Pathology Report Case: [id number] Provider: Michael Boykin MD Collected: 05/23/2023 01:17 PMOrdering Location: Hosp Lab Main Received: 05/23/2023 01:15 PMPathologist: Giuseppe Vasques MD, PhDSpecimen: SLIDE(S), 21 SLIDES ([id number]) Performed By: #### L [id number] ####[facility] LABIA [id number] [place] [address] [place] DIAGNOSIS COMMENT Normal [facility] Comment on above: Order Comment: Speci [...] been determined by the performing laboratory within [facility]???s [facility] Pathology and Laboratory Medicine [place] ([facility], [facility], [facility], [facility], [facility], or [facility]) in a manner consistent with CLIA requirements. One or more of these tests have not been cleared or approved by the FDA. [facility] is regulated under CLIA as qualified to perform high-complexity testing. These tests are used for clinical purposes. They should not be regarded as investigational or for research. Positive and negative controls stain appropriately. Performed By: #### L [id number] ####[facility] LABCLIA [id number] [address] FINAL DIAGNOSIS Normal [facility] Comment on above: Order Comment: Speci men Type: SLIDEOrdering Facility: AP Outside Review Address: , , Result Comment: Outs remi slides ([id number], 05/07/2023), [facility] inguinal lymph node, excisional biopsy:- Follicular lymphoma, grade 3A (see comment).JUDE/JACKSON 05/30/2023 Performed By: #### L [id number] ####[facility] LABCLIA [id number] [address] FINAL PERFORMING LAB Normal [facility] Comment on above: Order Comment: Speci men Type: SLIDEOrdering Facility: AP Outside Review Address: , , Result Comment: Diag nostic interpretation performed at [facility], [address] [place] [address] CLIA# [id number] Director: Lon Kaiser M.D. Performed By: #### L [id number] ####[facility] LABIA [id number] [place] [address] [place] MICROSCOPIC DESCRIPTION Normal [facility] Comment on above: Order Comment: Speci razia Type: SLIDEOrdering Facility: AP Outside Review Address: [...] at the referring institution were reviewed at [facility]. The atypical lymphoid cells are positive for [...] referring institution) with appropriate controls at the [facility]. CD21 highlights follicular dendritic meshworks. MUM1 is positive in a subset of B cells. IgD stain is negative. Performed By: #### L [id number] ####[facility] LABIA [id number] [place] [address] [place] ORDER COMMENT Requested blocks 05/23 ABO Normal [facility] Comment on above: Order Comment: Speci men Type: SLIDEOrdering Facility: AP Outside Review Address: , , Performed By: #### L [id number] ####[facility] LABIA [id number] [place] [address] [place] CNOVSPon 05-22-2023 CNOVSP Normal [facility] CNPNon 05-21-2023 CNPN Normal [facility] CNPNon 05-19-2023 CNPN Normal [facility] Pathology Noteon 05-19-2023 Pathology Note [id number]#[id number]:127 Normal [facility] CNPNon 05-16-2023 CNPN Normal [facility] Ambulatory Visit Summaryon 0 05-14-2023 Ambulatory Visit Summary KATIA SHAIKH :1955 Visit Date:05/14/2023 Ambulatory Visit Instructions Your Diagnosis Inguinal adenopathy Your Care Team Attending Physician - MIGUEL LOFTON, Chiquita Martins Primary Care Physician - SANDRA LOFTON, [...] reflux disease) Hypothyroidism Inguinal adenopathy Overweight Normal [facility] Consultation Noteon 05-14-20 Consultation Note [id number]#[id number]:127 Normal [facility] ESR Westergren method (Bld) [Velocity]on 05-14-2023 ESR (Bld) [Velocity] 40 mm/h High 0 - 15 mm/hr [facility] General Surgery Office/Clini c Noteon [...] Primary malignant neoplasm of skin: Father. Normal [facility] Comment on above: Result Comment: Elec tronically Signed By: MIGUEL LOFTON, Chiquita Jeong.br\Date and Time Signed: 05/14/23 14:27 EDT B2 Microglob SerPl-mCncon Bswt-[id number]-Phiwaclcdacwg [Mass/Vol] 3.0 ug/mL Normal <3.1 [facility] Comment on above: Order Comment: Speci men Type: BLOOD SPECIMENOrdering Facility: [facility] Address: [address] [place] [address] Result Comment: Beta -2 Microglobulin test is performed using the [employer] immunoturbidimetric method. Results obtained with different methods or kits cannot be used interchangeably. Performed By: #### 1 952-1 ####[facility] LABCLIA [id number] [address] [place] CBC W Auto Differential pane l (Bld)on 05-13-2023 Basophils (Bld) [#/Vol] 0.08 10*3/uL Normal <0.11 [facility] Comment on above: Order Comment: Speci razia Type: BLOOD SPECIMENOrdering Facility: [facility] Address: [address] [place] [address] Performed By: #### 5 7021-8 ####[facility] LABCLIA [id number] [place] [address] Basophils/100 WBC (Bld) 0.8 % Normal [facility] Comment on above: Order Comment: Speci men Type: BLOOD SPECIMENOrdering Facility: [facility] Address: [address] [place] [address] Performed By: #### 5 7021-8 ####[facility] LABCLIA [id number] [place] [address] Differential cell count method Nom (Bld) Auto Normal [facility] Comment on above: Order Comment: Speci men Type: BLOOD SPECIMENOrdering Facility: [facility] Address: [address] [place] [address] Performed By: #### 5 7021-8 ####[facility] LABCLIA [id number] [place] [address] Eosinophils (Bld) [#/Vol] 0.27 10*3/uL Normal <0.46 [facility] Comment on above: Order Comment: Speci men Type: BLOOD SPECIMENOrdering Facility: [facility] Address: [address] [place] [address] Performed By: #### 5 7021-8 ####[facility] LABCLIA [id number] [place] [address] Eosinophils/100 WBC (Bld) 2.8 % Normal [facility] Comment on above: Order Comment: Speci men Type: BLOOD SPECIMENOrdering Facility: [facility] Address: [address] [place] [address] Performed By: #### 5 7021-8 ####[facility] LABCLIA [id number] [place] [address] Erythrocyte distribution width (RBC) [Ratio] 14.1 % Normal 11.5-15.0 [facility] Comment on above: Order Comment: Speci men Type: BLOOD SPECIMENOrdering Facility: [facility] Address: [address] [place] [address] Performed By: #### 5 7021-8 ####[facility] LABCLIA [id number] [place] [address] Hematocrit (Bld) [Volume fraction] 42.3 % Normal 39.0-51.0 [facility] Comment on above: Order Comment: Speci men Type: BLOOD SPECIMENOrdering Facility: [facility] Address: [address] [place] [address] Performed By: #### 5 7021-8 ####[facility] LABCLIA [id number] [place] [address] Hemoglobin (Bld) [Mass/Vol] 13.4 g/dL Normal 13.0-17.0 [facility] Comment on above: Order Comment: Speci men Type: BLOOD SPECIMENOrdering Facility: [facility] Address: [address] [place] [address] Performed By: #### 5 7021-8 ####[facility] LABIA [id number] [place] [address] Immature granulocytes (Bld) [#/Vol] 0.05 10*3/uL Normal <0.10 [facility] Comment on above: Order Comment: Speci men Type: BLOOD SPECIMENOrdering Facility: [facility] Address: [address] [place] [address] Performed By: #### 5 7021-8 ####[facility] LABIA [id number] [place] [address] Immature granulocytes/100 WBC (Bld) 0.5 % Normal [facility] Comment on above: Order Comment: Speci men Type: BLOOD SPECIMENOrdering Facility: [facility] Address: [address] [place] [address] Performed By: #### 5 7021-8 ####[facility] LABIA [id number] [place] [address] Lymphocytes (Bld) [#/Vol] 0.69 10*3/uL Low 1.00-4.00 [facility] Comment on above: Order Comment: Speci men Type: BLOOD SPECIMENOrdering Facility: [facility] Address: [address] [place] [address] Performed By: #### 5 7021-8 ####[facility] LABCLIA [id number] [place] [address] Lymphocytes/100 WBC (Bld) 7.1 % Normal [facility] Comment on above: Order Comment: Speci men Type: BLOOD SPECIMENOrdering Facility: [facility] Address: [address] [place] [address] Performed By: #### 5 7021-8 ####[facility] LABCLIA [id number] [place] [address] MCH (RBC) [Entitic mass] 29.1 pg Normal 26.0-34.0 [facility] Comment on above: Order Comment: Speci men Type: BLOOD SPECIMENOrdering Facility: [facility] Address: [address] [place] [address] Performed By: #### 5 7021-8 ####[facility] LABIA [id number] [place] [address] MCHC (RBC) [Mass/Vol] 31.7 g/dL Normal 30.5-36.0 [facility] Comment on above: Order Comment: Speci men Type: BLOOD SPECIMENOrdering Facility: [facility] Address: [address] [place] [address] Performed By: #### 5 7021-8 ####[facility] LABCLIA [id number] [place] [address] MCV (RBC) [Entitic vol] 92.0 fL Normal 80.0-100.0 [facility] Comment on above: Order Comment: Speci men Type: BLOOD SPECIMENOrdering Facility: [facility] Address: [address] [place], [place] [address] Performed By: #### 5 7021-8 ####[facility] LABCLIA [id number] [place] [address] Monocytes (Bld) [#/Vol] 1.11 10*3/uL High <0.87 [facility] Comment on above: Order Comment: Speci men Type: BLOOD SPECIMENOrdering Facility: [facility] Address: [address] [address] Performed By: #### 5 7021-8 ####[facility] LABCLIA [id number] [place] [address] Monocytes/100 WBC (Bld) 11.5 % Normal [facility] Comment on above: Order Comment: Speci men Type: BLOOD SPECIMENOrdering Facility: [facility] Address: [address] [address] Performed By: #### 5 7021-8 ####[facility] LABCLIA [id number] [place] [address] Neutrophils (Bld) [#/Vol] 7.47 10*3/uL Normal 1.45-7.50 [facility] Comment on above: Order Comment: Speci men Type: BLOOD SPECIMENOrdering Facility: [facility] Address: [address] [address] Performed By: #### 5 7021-8 ####[facility] LABCLIA [id number] [place] [address] Neutrophils/100 WBC (Bld) 77.3 % Normal [facility] Comment on above: Order Comment: Speci men Type: BLOOD SPECIMENOrdering Facility: [facility] Address: [address] [place] [address] Performed By: #### 5 7021-8 ####[facility] LABCLIA [id number] [place] [address] Nucleated RBC (Bld) [#/Vol] 10*3/uL Normal <0.01 [facility] Comment on above: Order Comment: Speci men Type: BLOOD SPECIMENOrdering Facility: [facility] Address: [address] [place] [address] Performed By: #### 5 7021-8 ####[facility] LABCLIA [id number] [place] [address] Nucleated RBC/100 WBC (Bld) [Ratio] 0.0 /100 WBC Normal [facility] Comment on above: Order Comment: Speci men Type: BLOOD SPECIMENOrdering Facility: [facility] Address: [address] [place] [address] Performed By: #### 5 7021-8 ####[facility] LABIA [id number] [place] [address] Platelet mean volume (Bld) [Entitic vol] 9.7 fL Normal 9.0-12.7 [facility] Comment on above: Order Comment: Speci men Type: BLOOD SPECIMENOrdering Facility: [facility] Address: [address] [place] [address] Performed By: #### 5 7021-8 ####[facility] LABIA [id number] [place] [address] Platelets (Bld) [#/Vol] 306 10*3/uL Normal 150-400 [facility] Comment on above: Order Comment: Speci men Type: BLOOD SPECIMENOrdering Facility: [facility] Address: [address] [place] [address] Performed By: #### 5 7021-8 ####[facility] LABIA [id number] [place] [address] RBC (Bld) [#/Vol] 4.60 10*6/uL Normal 4.20-6.00 [facility] Comment on above: Order Comment: Speci men Type: BLOOD SPECIMENOrdering Facility: [facility] Address: [address] [place] [address] Performed By: #### 5 7021-8 ####[facility] LABIA [id number] [place] [address] WBC (Bld) [#/Vol] 9.67 10*3/uL Normal 3.70-11.00 [facility] Comment on above: Order Comment: Speci men Type: BLOOD SPECIMENOrdering Facility: [facility] Address: [place] [address] Performed By: #### 5 7021-8 ####[facility] LABCLIA [id number] [place] [address] Basophils (Bld) [#/Vol] 0.08 10*3/uL <0.11 k/uL [facility] Basophils/100 WBC (Bld) 0.8 % [facility] Differential cell count method Nom (Bld) Auto [facility] Eosinophils (Bld) [#/Vol] 0.27 10*3/uL <0.46 k/uL [facility] Eosinophils/100 WBC (Bld) 2.8 % [facility] Erythrocyte distribution width (RBC) [Ratio] 14.1 % 11.5 - 15.0 % [facility] Hematocrit (Bld) [Volume fraction] 42.3 % 39.0 - 51.0 % [facility] Hemoglobin (Bld) [Mass/Vol] 13.4 g/dL 13.0 - 17.0 g/dL [facility] Immature granulocytes (Bld) [#/Vol] 0.05 10*3/uL <0.10 k/uL [facility] Immature granulocytes/100 WBC (Bld) 0.5 % [facility] Lymphocytes (Bld) [#/Vol] 0.69 10*3/uL Low 1.00 - 4.00 k/uL [facility] Lymphocytes/100 WBC (Bld) 7.1 % [facility] MCH (RBC) [Entitic mass] 29.1 pg 26.0 - 34.0 pg [facility] MCHC (RBC) [Mass/Vol] 31.7 g/dL 30.5 - 36.0 g/dL [facility] MCV (RBC) [Entitic vol] 92.0 fL 80.0 - 100.0 fL [facility] Monocytes (Bld) [#/Vol] 1.11 10*3/uL High <0.87 k/uL [facility] Monocytes/100 WBC (Bld) 11.5 % [facility] Neutrophils (Bld) [#/Vol] 7.47 10*3/uL 1.45 - 7.50 k/uL [facility] Neutrophils/100 WBC (Bld) 77.3 % [facility] Nucleated RBC (Bld) [#/Vol] <0.01 k/uL [facility] Nucleated RBC/100 WBC (Bld) [Ratio] 0.0 /100 WBC [facility] Platelet mean volume (Bld) [Entitic vol] 9.7 fL 9.0 - 12.7 fL [facility] Platelets (Bld) [#/Vol] 306 10*3/uL 150 - 400 k/uL [facility] RBC (Bld) [#/Vol] 4.60 10*6/uL 4.20 - 6.00 m/uL [facility] WBC (Bld) [#/Vol] 9.67 10*3/uL 3.70 - 11.00 k/uL [facility] CNOVSPon 05-13-2023 CNOVSP Normal [facility] Comprehensive metabolic 2000 panelon 05-13-2023 Albumin [Mass/Vol] 3.9 g/dL Normal 3.9-4.9 [facility] Comment on above: Order Comment: Speci men Type: BLOOD SPECIMENOrdering Facility: [facility] Address: [address] [address] Performed By: #### 2 532-0, ####[facility] LABIA [id number] [place] [address] ALP [Catalytic activity/Vol] 244 U/L High 38-113 [facility] Comment on above: Order Comment: Speci men Type: BLOOD SPECIMENOrdering Facility: [facility] Address: [address] [address] Performed By: #### 2 532-0, ####[facility] LABIA [id number] [place] [address] ALT [Catalytic activity/Vol] 19 U/L Normal 10-54 [facility] Comment on above: Order Comment: Speci men Type: BLOOD SPECIMENOrdering Facility: [facility] Address: [address] [address] Performed By: #### 2 532-0, 59296-2 ####[facility] LABCLIA [id number] [place] [address] Anion gap [Moles/Vol] 12 mmol/L Normal 9-18 [facility] Comment on above: Order Comment: Speci men Type: BLOOD SPECIMENOrdering Facility: [facility] Address: [address] [place] [address] Performed By: #### 2 532-0, 23950-9 ####[facility] LABCLIA [id number] [place] [address] AST [Catalytic activity/Vol] 22 U/L Normal 14-40 [facility] Comment on above: Order Comment: Speci men Type: BLOOD SPECIMENOrdering Facility: [facility] Address: [address] [place] [address] Performed By: #### 2 532-0, 78373-3 ####[facility] LABCLIA [id number] [place] [address] Bilirubin [Mass/Vol] 0.4 mg/dL Normal 0.2-1.3 [facility] Comment on above: Order Comment: Speci men Type: BLOOD SPECIMENOrdering Facility: [facility] Address: [address] [place] [address] Performed By: #### 2 532-0, ####[facility] LABCLIA [id number] [place] [address] Calcium [Mass/Vol] 9.5 mg/dL Normal 8.5-10.2 [facility] Comment on above: Order Comment: Speci men Type: BLOOD SPECIMENOrdering Facility: [facility] Address: [address] [place] [address] Performed By: #### 2 532-0, ####[facility] LABCLIA [id number] [place] [address] Chloride [Moles/Vol] 103 mmol/L Normal 97-105 [facility] Comment on above: Order Comment: Speci men Type: BLOOD SPECIMENOrdering Facility: [facility] Address: [address] [address] Performed By: #### 2 532-0, ####[facility] LABCLIA [id number] [place] [address] CO2 [Moles/Vol] 24 mmol/L Normal 22-30 [facility] Comment on above: Order Comment: Speci men Type: BLOOD SPECIMENOrdering Facility: [facility] Address: [address] [place] [address] Performed By: #### 2 532-0, ####[facility] LABIA [id number] [place] [address] Creatinine [Mass/Vol] 0.89 mg/dL Normal 0.73-1.22 [facility] Comment on above: Order Comment: Speci men Type: BLOOD SPECIMENOrdering Facility: [facility] Address: [address] [place] [address] Performed By: #### 2 532-0, ####[facility] LABCLIA [id number] [place] [address] ESTIMATED GLOMERULAR FILTRATION RATE 95 mL/min/1.73m??? Normal >=60 [facility] Comment on above: Order Comment: Speci men Type: BLOOD SPECIMENOrdering Facility: [facility] Address: [address] [place] [address] Result Comment: Carol mated Glomerular Filtration Rate [...] actual GFR. Performed By: #### 2 532-0, 10792-7 ####[facility] LABCLIA [id number] [place] [address] Glucose [Mass/Vol] 96 mg/dL Normal 74-99 [facility] Comment on above: Order Comment: Speci men Type: BLOOD SPECIMENOrdering Facility: [facility] Address: [address] [place] [address] Result Comment: The [place] [employer] (ADA) provides guidance for cutoff [...] Standards of Medical Care in Diabetes 2016, [place] [employer]. Diabetes Care. 2016.39(Suppl 1). Performed By: #### 2 532-0, 49434-8 ####[facility] LABCLIA [id number] [place] [address] Potassium [Moles/Vol] 4.4 mmol/L Normal 3.7-5.1 [facility] Comment on above: Order Comment: Speci men Type: BLOOD SPECIMENOrdering Facility: [facility] Address: [address] [place] [address] Performed By: #### 2 532-0, 06634-8 ####[facility] LABCLIA [id number] [place] [address] Protein [Mass/Vol] 7.9 g/dL Normal 6.3-8.0 [facility] Comment on above: Order Comment: Speci men Type: BLOOD SPECIMENOrdering Facility: [facility] Address: [address] [place] [address] Performed By: #### 2 532-0, 53694-4 ####[facility] LABCLIA [id number] [place] [address] Sodium [Moles/Vol] 139 mmol/L Normal 136-144 [facility] Comment on above: Order Comment: Speci men Type: BLOOD SPECIMENOrdering Facility: [facility] Address: [address] [place] [address] Performed By: #### 2 532-0, 09250-3 ####[facility] LABCLIA [id number] [place] [address] Urea nitrogen [Mass/Vol] 19 mg/dL Normal 9-24 [facility] Comment on above: Order Comment: Speci men Type: BLOOD SPECIMENOrdering Facility: [facility] Address: [place] [address] Performed By: #### 2 532-0, ####[facility] LABCLIA [id number] [place] [address] Albumin [Mass/Vol] 3.9 g/dL 3.9 - 4.9 g/dL [facility] ALP [Catalytic activity/Vol] 244 U/L High 38 - 113 U/L [facility] ALT [Catalytic activity/Vol] 19 U/L 10 - 54 U/L [facility] Anion gap [Moles/Vol] 12 mmol/L 9 - 18 mmol/L [facility] AST [Catalytic activity/Vol] 22 U/L 14 - 40 U/L [facility] Bilirubin [Mass/Vol] 0.4 mg/dL 0.2 - 1 .3 mg/dL [facility] Calcium [Mass/Vol] 9.5 mg/dL 8.5 - 10. 2 mg/dL [facility] Chloride [Moles/Vol] 103 mmol/L 97 - 10 5 mmol/L [facility] CO2 [Moles/Vol] 24 mmol/L 22 - 30 mmol/L [facility] Creatinine [Mass/Vol] 0.89 mg/dL 0.73 - 1.22 mg/dL [facility] Estimated Glomerular Filtration Rate 95 mL/min/1.73m >=60 mL/min/1.7 3m [facility] Glucose [Mass/Vol] 96 mg/dL 74 - 99 mg/dL [facility] Potassium [Moles/Vol] 4.4 mmol/L 3.7 - 5.1 mmol/L [facility] Protein [Mass/Vol] 7.9 g/dL 6.3 - 8.0 g/dL [facility] Sodium [Moles/Vol] 139 mmol/L 136 - 144 mmol/L [facility] Urea nitrogen [Mass/Vol] 19 mg/dL 9 - 24 mg/dL [facility] ESR Westergren method (Bld) [Velocity]on 05-13-2023 ESR (Bld) [Velocity] 40 mm/h High 0-15 [facility] Comment on above: Order Comment: Speci men Type: BLOOD SPECIMENOrdering Facility: [facility] Address: [address] [place] [address] Performed By: #### 4 537-7 ####[facility] LABCLIA [id number] [place] [address] [place] HBV core Ab Ser Qlon 023 HBV core Ab Ql (S) Negative Normal Negative [facility] Comment on above: Order Comment: Speci men Type: BLOOD SPECIMENOrdering Facility: [facility] Address: [address] [place] [address] Result Comment: No e vidence of current or past infection with Hepatitis B virus. Should recent infection be suspected, repeat testing may be considered 3-4 weeks after this draw. Performed By: #### 5 195-3, 51027-0, 01088-0 ####[facility] LABCLIA [id number] [place] [address] [place] HBV surface Ab Ql (S)on 05-03 HBV surface Ab Qn (S) <8.00 Low >=12.00 [facility] Comment on above: Order Comment: Speci men Type: BLOOD SPECIMENOrdering Facility: [facility] Address: [address] [place] [address] Performed By: #### 5 195-3, 93350-4, 45586-2 ####[facility] LABCLIA [id number] [id number] HBV surface Ab Ser Qlon 05-03 HBV surface Ab Ql (S) Negative Abnormal Positive [facility] Comment on above: Order Comment: Speci men Type: BLOOD SPECIMENOrdering Facility: [facility] Address: [address] [place] [address] Result Comment: No e vidence of antibodies to Hepatitis B surface antigen. Performed By: #### 5 195-3, 60683-7, 66555-2 ####[facility] LABCLIA [id number] [address] [place] HBV surface Ag Ser Qlon 05-03 HBV surface Ag Ql (S) Negative Normal Negative [facility] Comment on above: Order Comment: Speci men Type: BLOOD SPECIMENOrdering Facility: [facility] Address: [address] [place] [address] Performed By: #### 5 195-3, 29250-7, 18069-6 ####[facility] LABIA [id number] [address] [place] HCV Ab Ser Qlon 05-13-2023 HCV Ab Ql (S) Negative Normal Negative [facility] Comment on above: Order Comment: Speci men Type: BLOOD SPECIMENOrdering Facility: [facility] Address: [address] [place] [address] Result Comment: The result suggests no evidence of active infection with Hepatitis C virus. Should recent infection be suspected, repeat testing may be considered 4-6 weeks after this draw. Performed By: #### 1 6128-1 ####[facility] LABIA [id number] [place] [address] [place] LD LACTATE DEHYDROon 023 LDH [Catalytic activity/Vol] 420 U/L High 135 - 225 U/L [facility] LDH SerPl-cCncon 05-13-2023 LDH [Catalytic activity/Vol] 420 U/L High 135-225 [facility] Comment on above: Order Comment: Speci men Type: BLOOD SPECIMENOrdering Facility: [facility] Address: [place] [address] Performed By: #### 2 532-0, 62161-1 ####[facility] LABCLIA [id number] [place] [address] Operative Reporton Operative Report [id number]#1.00CD:127 Normal [facility] ECG 12-Leadon 05-02-2023 ECG 12-Lead [id number]#1.00CD:127 [facility] Consent for Procedure/Surger yon 04-30-2023 Consent for Procedure/Surgery [id number]#1.00CD:127 Normal [facility] Facesheeton 04-30-2023 Facesheet [id number]#1.00CD:127 Normal [facility] Ambulatory Visit Summaryon 0 04-29-2023 Ambulatory Visit Summary KATIA SHAIKH :1955 Visit Date:04/29/2023 Ambulatory Visit Instructions Your Care Team Attending Physician - Chiquita RIVERA MD Primary Care Physician - EMELIA GONZALEZ [...] GERD (gastroesophageal reflux disease) Hypothyroidism Overweight Normal [facility] RAD - Pet Scan Reporton 04-04 RAD - Pet Scan Report [id number]#1.00CD:127 Normal [facility] Physician Referralon 023 Physician Referral [id number]#1.00CD:127 Normal [facility] CBC with Auto Differentialon 04-02-2023 Basophils (Bld) [#/Vol] 0.08 10*3/uL [facility] Basophils/100 WBC (Bld) 1 % 0 - 2 % [facility] Eosinophils (Bld) [#/Vol] 0.23 10*3/uL [facility] Eosinophils/100 WBC (Bld) 2 % 1 - 4 % [facility] Erythrocyte distribution width (RBC) [Ratio] 13.5 % 11.8 - 14.4 % [facility] Hematocrit (Bld) [Volume fraction] 42.8 % 40.7 - 50.3 % [facility] Hemoglobin (Bld) [Mass/Vol] 14.3 g/dL 13.0 - 17.0 g/dL [facility] Immature granulocytes (Bld) [#/Vol] 0.04 10*3/uL [facility] Immature granulocytes/100 WBC (Bld) 0 % 0 [facility] Interpretation and review of laboratory results Abnormal [facility] Lymphocytes/100 WBC (Bld) 6 % Low 24 - 43 % [facility] Lymphocytes/100 WBC (Bld) 0.65 % Low [facility] MCH (RBC) [Entitic mass] 30.6 pg 25.2 - 33.5 pg [facility] MCHC (RBC) [Mass/Vol] 33.4 g/dL 28.4 - 34.8 g/dL [facility] MCV (RBC) [Entitic vol] 91.5 fL 82.6 - 102.9 fL [facility] Monocytes/100 WBC (Bld) 12 % 3 - 12 % [facility] Monocytes/100 WBC (Bld) 1.32 % High [facility] Neutrophils/100 WBC (Bld) 79 % High 36 - 65 % [facility] NRBC Automated 0.0 0.0 per 100 WBC [facility] Platelet mean volume (Bld) [Entitic vol] 10.2 fL 8.1 - 13.5 fL [facility] Platelets (Bld) [#/Vol] 195 10*3/uL [facility] RBC (Bld) [#/Vol] 4.68 10*6/uL 4.21 - 5.77 m/uL [facility] Segmented neutrophils/100 WBC (Bld) 8.84 % High [facility] WBC other (Bld) [#/Vol] 11.2 [facility] CBC with Diffon 04-02-2023 Abs. Basophil 0.08 k/uL Normal 0.00-0.20 [facility] Comment on above: Performed By: #### C P, CDP #### [facility] [address] [place], [place] [address] Snipper: Rasta Mohr MD Abs.Imm.Granulocyte 0.04 k/uL Normal 0.00-0.30 [facility] Comment on above: Performed By: #### C P, CDP #### [facility] [address] [place] [address] Snipper: Rasta Mohr MD Abs.Neutrophil (Seg) 8.84 k/uL High 1.50-8.10 [facility] Comment on above: Performed By: #### C P, CDP #### [facility] [address] [place] [address] Snipper: Rasta Mohr MD Basophils/100 WBC (Bld) 1 % Normal 0-2 [facility] Comment on above: Performed By: #### C P, CDP #### [facility] [address] [place] [address] [place] [place], [place] [id number] Snipper: Rasta Mohr MD Eosinophils (Bld) [#/Vol] 0.23 10*3/uL Normal 0.00-0.44 [facility] Comment on above: Performed By: #### C P, CDP #### [address] [place], [place] [id number] Snipper: Rasta Mohr MD Eosinophils/100 WBC (Bld) 2 % Normal 1-4 [facility] Comment on above: Performed By: #### C P, CDP #### [address] [place] [id number] Snipper: Rasta Mohr MD Erythrocyte distribution width (RBC) [Ratio] 13.5 % Normal 11.8-14.4 [facility] Comment on above: Performed By: #### C P, CDP #### [address] [place], [place] [address] Snipper: Rasta Mohr MD Hematocrit (Bld) [Volume fraction] 42.8 % Normal 40.7-50.3 [facility] Comment on above: Performed By: #### C P, CDP #### [address] [place], [place] [address] Snipper: Rasta Mohr MD Hemoglobin (Bld) [Mass/Vol] 14.3 g/dL Normal 13.0-17.0 [facility] Comment on above: Performed By: #### C P, CDP #### [address] [place], [place] [address] Snipper: Rasta Mohr MD Immature granulocytes/100 WBC (Bld) 0 % Normal 0 [facility] Comment on above: Performed By: #### C P, CDP #### [facility] [address] [place], [place] [address] Snipper: Rasta Mohr MD Lymphocytes (Bld) [#/Vol] 0.65 10*3/uL Low 1.10-3.70 [facility] Comment on above: Performed By: #### C P, CDP #### [facility] [address] [place], [place] [address] Snipper: Rasta Mohr MD Lymphocytes/100 WBC (Bld) 6 % Low 24-43 [facility] Comment on above: Performed By: #### C P, CDP #### [facility] [address] [place], [facility]83 Snipper: Rasta Mohr MD MCH (RBC) [Entitic mass] 30.6 pg Normal 25.2-33.5 [facility] Comment on above: Performed By: #### C P, CDP #### [address] [place], [facility]83 Snipper: Rasta Mohr MD MCHC (RBC) [Mass/Vol] 33.4 g/dL Normal 28.4-34.8 [facility] Comment on above: Performed By: #### C P, CDP #### [address] [place], [place] [address] Snipper: Rasta Mohr MD MCV (RBC) [Entitic vol] 91.5 fL Normal 82.6-102.9 [facility] Comment on above: Performed By: #### C P, CDP #### [facility] [address] [place] [address] Snipper: Rasta Mohr MD Monocytes (Bld) [#/Vol] 1.32 10*3/uL High 0.10-1.20 [facility] Comment on above: Performed By: #### C P, CDP #### [facility] [address] [place], [place] [address] Snipper: Rasta Mohr MD Monocytes/100 WBC (Bld) 12 % Normal 3-12 [facility] Comment on above: Performed By: #### C P, CDP #### [facility] [address] [place], [place] [address] Snipper: Rasta Mohr MD Neutrophil (Seg) 79 % High 36-65 [facility] Comment on above: Performed By: #### C P, CDP #### [facility] [address] [place], [place] [address] Snipper: Rasta Mohr MD NRBC Automated 0.0 per 100 WBC Normal 0.0 [facility] Comment on above: Performed By: #### C P, CDP #### [address] [place], [facility]83 Snipper: Rasta Mohr MD Platelet mean volume (Bld) [Entitic vol] 10.2 fL Normal 8.1-13.5 [facility] Comment on above: Performed By: #### C P, CDP #### [address] [place], [place] [address]83 Snipper: Rasta Mohr MD Platelets (Bld) [#/Vol] 195 10*3/uL Normal 138-453 [facility] Comment on above: Performed By: #### C P, CDP #### [facility] [address] [place], [place] [address] Snipper: Rasta Mohr MD RBC (Bld) [#/Vol] 4.68 10*6/uL Normal 4.21-5.77 [facility] Comment on above: Performed By: #### C P, CDP #### [facility] [address] [place], [place] [address]483 Snipper: Rasta Mohr MD WBC (Bld) [#/Vol] 11.2 10*3/uL Normal 3.5-11.3 [facility] Comment on above: Performed By: #### C P, CDP #### [facility] [address] [place], [place] [address] Snipper: Rasta Mohr MD Comp Metabolic Profon 2022 Albumin [Mass/Vol] 3.9 g/dL Normal 3.5-5.2 [facility] Comment on above: Performed By: #### C P, CDP #### [facility] [address] [place] [address] Snipper: Rasta Mohr MD Albumin/Glob Ratio 0.9 Low 1.0-2.5 [facility] Comment on above: Performed By: #### C P, CDP #### [facility] [address] [place] [address] Snipper: Rasta Mohr MD Alkaline Phos 201 U/L High 40-129 [facility] Comment on above: Performed By: #### C P, CDP #### [facility] [address] [place] [address] Snipper: Rasta Mohr MD ALT [Catalytic activity/Vol] 15 U/L Normal 5-41 [facility] Comment on above: Performed By: #### C P, CDP #### [facility] [address] [place] [address] Snipper: Rasta Mohr MD Anion gap [Moles/Vol] 11 mmol/L Normal 9-17 [facility] Comment on above: Performed By: #### C P, CDP #### [facility] [address] [place], [place] [address]383 Snipper: Rasta Mohr MD AST [Catalytic activity/Vol] 19 U/L Normal <40 [facility] Comment on above: Performed By: #### C P, CDP #### [facility] [address] [place], [place] [address]227[address] Snipper: Rasta Mohr MD Bilirubin [Mass/Vol] 0.4 mg/dL Normal 0.3-1.2 [facility] Comment on above: Performed By: #### C P, CDP #### [facility] [address] [place], [place] [address]83 Snipper: Rasta Mohr MD BUN/CRE Ratio 20 Normal 9-20 [facility] Comment on above: Performed By: #### C P, CDP #### [facility] [address] [place], [place] [address]83 Snipper: Rasta Mohr MD Calcium [Mass/Vol] 9.4 mg/dL Normal 8.6-10.4 [facility] Comment on above: Performed By: #### C P, CDP #### [facility] [address] [place] [address] [place], [place] 8307483 Snipper: Rasta Mohr MD Chloride [Moles/Vol] 102 mmol/L Normal 98-107 [facility] Comment on above: Performed By: #### C P, CDP #### [facility] [address] [place] [address] [place], [place] [address]83 Snipper: Rasta Mohr MD CO2 [Moles/Vol] 25 mmol/L Normal 20-31 [facility] Comment on above: Performed By: #### C P, CDP #### [facility] [address] [place], [place] [address] Snipper: Rasta Mohr MD Creatinine [Mass/Vol] 0.84 mg/dL Normal 0.70-1.20 [facility] Comment on above: Performed By: #### C P, CDP #### [facility] [address] [place] [address] Snipper: Rasta Mohr MD GFR/1.73 sq M.predicted among non-blacks MDRD (S/P/Bld) [Vol rate/Area] mL/min/{1.73_m2} Normal >60 [facility] Comment on above: Result Comment: These results [...] Performed By: #### C P, CDP #### [facility] [address] [place] [address] [place] [address] Snipper: Rasta Mohr MD Glucose [Mass/Vol] 101 mg/dL High 70-99 [facility] Comment on above: Performed By: #### C P, CDP #### [address] [place] [address] Snipper: Rasta Mohr MD Potassium [Moles/Vol] 4.3 mmol/L Normal 3.7-5.3 [facility] Comment on above: Performed By: #### C P, CDP #### [address] [place] [address] Snipper: Rasta Mohr MD Protein [Mass/Vol] 8.1 g/dL Normal 6.4-8.3 [facility] Comment on above: Performed By: #### C P, CDP #### [facility] [address] [place] [address] [place] [address] Snipper: Rasta Mohr MD Sodium [Moles/Vol] 138 mmol/L Normal 135-144 [facility] Comment on above: Performed By: #### C P, CDP #### [address] [place] [address] Snipper: Rasta Mohr MD Urea nitrogen [Mass/Vol] 17 mg/dL Normal 8-23 [facility] Comment on above: Performed By: #### C P, CDP #### [facility] [address] [place] [address] Snipper: Rasta Mohr MD Comprehensive Metabolic Pane [facility] 04-02-2023 Albumin [Mass/Vol] 3.9 g/dL 3.5 - 5.2 g/dL [facility] Albumin/Globulin [Mass ratio] 0.9 {ratio} Low 1.0 - 2.5 [facility] ALP [Catalytic activity/Vol] 201 U/L High 40 - 129 U/L [facility] ALT [Catalytic activity/Vol] 15 U/L 5 - 41 U/L [facility] Anion gap [Moles/Vol] 11 mmol/L 9 - 17 mmol/L [facility] AST [Catalytic activity/Vol] 19 U/L NINF - 40 U/L [facility] Bilirubin [Mass/Vol] 0.4 mg/dL 0.3 - 1 .2 mg/dL [facility] Calcium [Mass/Vol] 9.4 mg/dL 8.6 - 10. 4 mg/dL [facility] Chloride [Moles/Vol] 102 mmol/L 98 - 10 7 mmol/L [facility] CO2 [Moles/Vol] 25 mmol/L 20 - 31 mmol/L [facility] Creatinine [Mass/Vol] 0.84 mg/dL 0.70 - 1.20 mg/dL [facility] GFR/1.73 sq M.predicted MDRD (S/P/Bld) [Vol rate/Area] - PINF [facility] Comment on above: These results are not [...] 101 mg/dL High 70 - 99 mg/dL [facility] Interpretation and review of laboratory results Abnormal [facility] Potassium [Moles/Vol] 4.3 mmol/L 3.7 - 5.3 mmol/L [facility] Protein [Mass/Vol] 8.1 g/dL 6.4 - 8.3 g/dL [facility] Sodium [Moles/Vol] 138 mmol/L 135 - 144 mmol/L [facility] Urea nitrogen [Mass/Vol] 17 mg/dL 8 - 23 mg/dL [facility] Urea nitrogen/Creatinine [Mass ratio] 20 mg/mg 9 - 20 [facility] TSHon 04-02-2023 TSH [Mass/Vol] 0.52 [facility] Thyroid Stim. Horm.on 2022 Thyroid Stim. Horm. 0.52 uIU/mL Normal 0.30-5.00 [facility] Comment on above: Performed By: #### T #### [facility] [address] [place] [address] [place] [address] Snipper: Rasta Mohr MD CBC Auto DifferentialOrdered By: Maritza Mendoza on 04-05-2021 Absolute Eos # 0.[address] [facility] Work Phone: Absolute Immature Granulocyte 0.[address] [facility] Phone: Absolute Lymph # 1.[address] [facility] Phone: Absolute [place] # 0.[address] [facility] Phone: Basophils (Bld) [#/Vol] 0.05 10*3/uL [employer] Work Phone: Basophils/100 WBC (Bld) 1 % 0 - 2 % [employer] Work Phone: Differential Type NOT REPORTED [employer] Phone: Eosinophils/100 WBC (Bld) 4 % 1 - 4 % [employer] Phone: Hematocrit (Bld) [Volume fraction] 47.7 % 40.7 - 50.3 % [employer] Phone: Hemoglobin.gastrointe stinal spec 1 Ql (Stl) 15.6 g/dL 13.0 - 17.0 g/dL [employer] Phone: Immature granulocytes/100 WBC (Bld) 1 % High 0 [employer] Phone: Interpretation and review of laboratory results Abnormal [employer] Phone: Lymphocytes/100 WBC (Bld) 18 % Low 24 - 43 % [employer] Phone: MCH (RBC) [Entitic mass] 31.0 pg 25.2 - 33.5 pg [employer] Phone: MCHC (RBC) [Mass/Vol] 32.7 g/dL 28.4 - 34.8 g/dL [employer] Phone: MCV (RBC) [Entitic vol] 94.6 fL 82.6 - 102.9 fL [employer] Phone: Monocytes/100 WBC (Bld) 12 % 3 - 12 % [employer] Phone: NRBC Automated 0.0 0.0 per 100 WBC [employer] Phone: Platelet distribution width (Bld) [Ratio] 13.2 % 11.8 - 14.4 % [employer] Phone: Platelet Estimate NOT REPORTED [employer] Phone: Platelet mean volume (Bld) [Entitic vol] 10.1 fL 8.1 - 13.5 fL [employer] Phone: Platelets (Bld) [#/Vol] 193 10*3/uL [employer] Phone: RBC (Bld) [#/Vol] 5.04 10*6/uL 4.21 - 5.77 m/uL [employer] Phone: RBC (Bld) [#/Vol] NOT REPORTED [employer] Phone: Segmented neutrophils/100 WBC (Bld) 64 % 36 - 65 % [employer] Phone: Segs Absolute 4.19 [employer] Phone: WBC (Bld) [#/Vol] 6.5 10*3/uL [employer] Phone: WBC (Bld) [#/Vol] NOT REPORTED [employer] Phone: [employer] Phone: Comprehensive Metabolic Pane lOrdered By: Maritza Mendoza on 04-05-2021 Albumin [Mass/Vol] 4.2 g/dL 3.5 - 5.2 g/dL [employer] Phone: Albumin/Globulin [Mass ratio] 1.0 {ratio} [employer] Phone: ALP (Bld) [Catalytic activity/Vol] 187 U/L High 40 - 129 U/L [employer] Phone: ALT [Catalytic activity/Vol] 23 U/L 5 - 41 U/L [employer] Phone: Anion gap [Moles/Vol] 10 mmol/L 9 - 17 mmol/L [employer] Phone: AST [Catalytic activity/Vol] 21 U/L <40 [employer] Phone: Bilirubin [Mass/Vol] 0.34 mg/dL 0.3 - 1 .2 mg/dL [employer] Phone: Calcium [Mass/Vol] 9.5 mg/dL 8.6 - 10. 4 mg/dL [employer] Phone: Chloride [Moles/Vol] 102 mmol/L 98 - 10 7 mmol/L [employer] Phone: CO2 [Moles/Vol] 26 mmol/L 20 - 31 mmol/L [employer] Phone: Creatinine [Mass/Vol] 0.82 mg/dL 0.70 - 1.20 mg/dL [employer] Phone: Free PSA/Total PSA [Mass fraction] 8.3 g/dL 6.4 - 8.3 g/dL [employer] Phone: GFR >60 >60 mL/min [employer] Phone: GFR Non- >60 >60 mL/min [employer] Phone: Glucose [Mass/Vol] 97 mg/dL 70 - 99 mg/dL [employer] Phone: Interpretation and review of laboratory results Abnormal [employer] Phone: Potassium [Moles/Vol] 4.2 mmol/L 3.7 - 5.3 mmol/L [employer] Phone: Sodium [Moles/Vol] 138 mmol/L 135 - 144 mmol/L [employer] Phone: Urea nitrogen (BldV) [Mass/Vol] 16 mg/dL 8 - 23 mg/dL [employer] Phone: Urea nitrogen/Creatinine (Bld) [Mass ratio] 20 [employer] Phone: Laboratory - Chemistry and C hemistry - challengeOrdered By: Maritza Mendoza on 04-05-2021 GFR/1.73 sq M.predicted MDRD (S/P/Bld) [Vol rate/Area] [employer] Phone: Comment on above: Average GFR for 60-6 9 years old: 85 mL/min/1.73sq m Chronic Kidney Disease: <60 mL/min/1.73sq m Kidney failure: <15 mL/min/1.73sq m eGFR calculated using average adult body mass. Additional eGFR calculator available at: http://www.to be/multiple_crcl_2012.htm Stage 1: Some kidney damage normal GFR Stage 2: Mild kidney damage GFR 60-89 Stage 3: Moderate kidney damage GFR 30-59 Stage 4: Severe kidney damage GFR 15-29 Stage 5: Severe kidney damage GFR <15 ESRD - chronic treatment by dialysis or transplant Lactate DehydrogenaseOrdered By: Maritza Mendoza on 04-05-2021 LD 163 U/L 135 - 225 U/L [employer] Phone: No Panel InformationOrdered By: Maritza Mendoza on 04-05-2021 [employer] Phone: TSH without ReflexOrdered By : Maritza Mendoza on 04-05-2021 Interpretation and review of laboratory results Abnormal Gn[facility] Phone: TSH Qn 0.19 m[IU]/L Low Gnammo Phone: Gnammo Phone: CBC Auto Differentialon 04-03 Basophils (Bld) [#/Vol] 0.07 10*3/uL [place] Basophils/100 WBC (Bld) 1 % 0 - 2 % [place] Differential Type NOT REPORTED [place] Eosinophils (Bld) [#/Vol] 0.24 10*3/uL [place] Eosinophils/100 WBC (Bld) 4 % 1 - 4 % [place] Erythrocyte distribution width (RBC) [Ratio] 13.5 % 11.8 - 14.4 % [place] Hematocrit (Bld) [Volume fraction] 48.7 % 40.7 - 50.3 % [place] Hemoglobin (Bld) [Mass/Vol] 15.9 g/dL 13 - 17 g/dL [place] Immature granulocytes (Bld) [#/Vol] 10*3/uL [place] Immature granulocytes (Bld) [#/Vol] 0 % 0 [place] Interpretation and review of laboratory results Abnormal [place] Lymphocytes (Bld) [#/Vol] 1.28 10*3/uL [place] Lymphocytes/100 WBC (Bld) 19 % Low 24 - 43 % [place] MCH (RBC) [Entitic mass] 30.7 pg 25.2 - 33.5 pg [place] MCHC (RBC) [Mass/Vol] 32.6 g/dL 28.4 - 34.8 g/dL [place] MCV (RBC) [Entitic vol] 94.0 fL 82.6 - 102.9 fL [place] Monocytes (Bld) [#/Vol] 0.98 10*3/uL [place] Monocytes/100 WBC (Bld) 15 % High 3 - 12 % [place] Platelet mean volume (Bld) [Entitic vol] 10.3 fL 8.1 - 13.5 fL [place] Platelets (Bld) [#/Vol] NOT REPORTED [place] Platelets (Bld) [#/Vol] 209 10*3/uL [place] RBC (Bld) [#/Vol] 5.18 10*6/uL 4.21 - 5.77 m/uL [place] RBC morphology finding Nom (Bld) NOT REPORTED [place] Segmented neutrophils/100 WBC (Bld) 61 % 36 - 65 % [place] Segs Absolute 4.13 [place] WBC (Bld) [#/Vol] 0.0 10*3/uL 0.0 per 100 WBC [place] WBC (Bld) [#/Vol] 6.7 10*3/uL [place] WBC Morphology NOT REPORTED [place] Comprehensive Metabolic Pane cheng 04-17-2020 Albumin [Mass/Vol] 4.2 g/dL 3.5 - 5.2 g/dL [place] Albumin/Globulin [Mass ratio] 1.1 {ratio} [place] ALP [Catalytic activity/Vol] 161 U/L High 40 - 129 U/L [place] ALT [Catalytic activity/Vol] 24 U/L 5 - 41 U/L [place] Anion gap [Moles/Vol] 13 mmol/L 9 - 17 mmol/L [place] AST [Catalytic activity/Vol] 19 U/L <40 [place] Bilirubin Ql (U) 0.27 mg/dL Low 0.3 - 1.2 mg/dL [place] Bun/Cre Ratio 12 [place] Calcium [Mass/Vol] 9.4 mg/dL 8.6 - 10. 4 mg/dL [place] Chloride [Moles/Vol] 103 mmol/L 98 - 10 7 mmol/L [place] CO2 [Moles/Vol] 24 mmol/L 20 - 31 mmol/L [place] Creatinine [Mass/Vol] 0.81 mg/dL 0.7 - 1.2 mg/dL [place] GFR >60 >60 mL/min [place] GFR Non- >60 >60 mL/min [place] Glucose [Mass/Vol] 104 mg/dL High 70 - 99 mg/dL [place] Interpretation and review of laboratory results Abnormal [place] Potassium [Moles/Vol] 4.2 mmol/L 3.7 - 5.3 mmol/L [place] Protein [Mass/Vol] 8.0 g/dL 6.4 - 8.3 g/dL [place] Sodium [Moles/Vol] 140 mmol/L 135 - 144 mmol/L [place] Urea nitrogen [Mass/Vol] 10 mg/dL 8 - 23 mg/dL [place] Lactate Dehydrogenaseon 04-03 LD 181 U/L 135 - 225 U/L [place] Metabolic Panelon 04-17-2020 GFR/1.73 sq M predicted among non-blacks MDRD (S/P/Bld) [Vol rate/Area] [facility], [place] Comment on above: Stage 1: Some kidney [...] body mass. Additional eGFR calculator available at: http://www.to be/multiple_crcl_2012.htm Vital Signs Date Time Vital Sign Value Performing Clinician Facility 03-09-2024 13:57-0400 Body temperature 98.2 [degF] Apheresis Main Work Phone: [facility] 03-09-2024 13:57-0400 Diastolic blood pressure 80 mm[Hg] Apheresis Main Work Phone: [facility] 03-09-2024 13:57-0400 Heart rate 81 /min Apheresis Main Work Phone: [facility] 03-09-2024 13:57-0400 Respiratory rate 18 /min Apheresis Main Work Phone: [facility] 03-09-2024 13:57-0400 Systolic blood pressure 134 mm[Hg] Apheresis Main Work Phone: [facility] 03-09-2024 13:11-0400 SaO2% (BldA) [Mass fraction] 96 % Apheresis Main Work Phone: [facility] Comment on above: 03-09-2024 09:15-0400 Body height 180.1 cm Apheresis Main Work Phone: [facility] 03-09-2024 09:15-0400 Body mass index (BMI) [Ratio] 25.31 kg/m2 Apheresis Main Work Phone: [facility] 03-09-2024 09:15-0400 Body weight 82.1 kg Apheresis Main Work Phone: [facility] 03-08-2024 15:34-0400 Body height 177.2 cm Niesha Galdamez MD Work Phone: [facility] 03-08-2024 15:34-0400 Body mass index (BMI) [Ratio] 26.21 kg/m2 Niesha Galdamez MD Work Phone: [facility] 03-08-2024 15:34-0400 Body temperature 97.5 [degF] Niesha Galdamez MD Work Phone: [facility] 03-08-2024 15:34-0400 Body weight 82.3 kg Niesha Galdamez MD Work Phone: [facility] 03-08-2024 15:34-0400 Diastolic blood pressure 76 mm[Hg] Niesha Galdamez MD Work Phone: [facility] 03-08-2024 15:34-0400 Heart rate 91 /min Niesha Galdamez MD Work Phone: [facility] 03-08-2024 15:34-0400 Respiratory rate 20 /min Niesha Galdamez MD Work Phone: [facility] 03-08-2024 15:34-0400 SaO2% (BldA) [Mass fraction] 97 % Niesha Galdamez MD Work Phone: [facility] 03-08-2024 15:34-0400 Systolic blood pressure 130 mm[Hg] Niesha Galdamez MD Work Phone: [facility] 02-12-2024 10:55-0400 Body temperature 97.9 [degF] Niesha Galdamez MD Work Phone: [facility] 02-12-2024 10:55-0400 Body weight 84 kg Niesha Galdamez MD Work Phone: [facility] 02-12-2024 10:55-0400 Diastolic blood pressure 72 mm[Hg] Niesha Galdamez MD Work Phone: [facility] 02-12-2024 10:55-0400 Heart rate 75 /min Niesha Galdamez MD Work Phone: [facility] 02-12-2024 10:55-0400 Respiratory rate 18 /min Niesah Galdamez MD Work Phone: [facility] 02-12-2024 10:55-0400 SaO2% (BldA) [Mass fraction] 99 % Niesha Galdamez MD Work Phone: [facility] 02-12-2024 10:55-0400 Systolic blood pressure 133 mm[Hg] Niesha Galdamez MD Work Phone: [facility] 02-02-2024 15:44-0400 Body temperature 97.2 [degF] Michael Boykin MD Work Phone: [facility] 02-02-2024 15:44-0400 Body weight 83.2 kg Michael Boykin MD Work Phone: [facility] 02-02-2024 15:44-0400 Diastolic blood pressure 76 mm[Hg] Michael Boykin MD Work Phone: [facility] 02-02-2024 15:44-0400 Heart rate 81 /min Mihcael Boykin MD Work Phone: [facility] 02-02-2024 15:44-0400 Respiratory rate 18 /min Michael Boykin MD Work Phone: [facility] 02-02-2024 15:44-0400 SaO2% (BldA) [Mass fraction] 98 % Michael Boykin MD Work Phone: [facility] 02-02-2024 15:44-0400 Systolic blood pressure 135 mm[Hg] Michael Boykin MD Work Phone: [facility] 01-28-2024 09:55-0400 Body height 179.1 cm Dorcas Bolanos MD Work Phone: [facility] 01-28-2024 09:55-0400 Body mass index (BMI) [Ratio] 26.38 kg/m2 Dorcas Bolanos MD Work Phone: [facility] 01-28-2024 09:55-0400 Body temperature 97.9 [degF] Dorcas Bolanos MD Work Phone: [facility] 01-28-2024 09:55-0400 Body weight 84.6 kg Dorcas Bolanos MD Work Phone: [facility] 01-28-2024 09:55-0400 Diastolic blood pressure 71 mm[Hg] Dorcas Bolanos MD Work Phone: [facility] 01-28-2024 09:55-0400 Heart rate 91 /min Dorcas Bolanos MD Work Phone: [facility] 01-28-2024 09:55-0400 Respiratory rate 16 /min oDrcas Bolanos MD Work Phone: [facility] 01-28-2024 09:55-0400 SaO2% (BldA) [Mass fraction] 98 % Dorcas Bolanos MD Work Phone: [facility] 01-28-2024 09:55-0400 Systolic blood pressure 129 mm[Hg] Dorcas Bolanos MD Work Phone: [facility] 01-12-2024 14:05-0400 Body temperature 97 [degF] Michael Boykin MD Work Phone: [facility] 01-12-2024 14:05-0400 Body weight 83.9 kg Michael Boykin MD Work Phone: [facility] 01-12-2024 14:05-0400 Diastolic blood pressure 77 mm[Hg] Michael Boykin MD Work Phone: [facility] 01-12-2024 14:05-0400 Heart rate 100 /min Michael Boykin MD Work Phone: [facility] 01-12-2024 14:05-0400 Respiratory rate 18 /min Michael Boykin MD Work Phone: [facility] 01-12-2024 14:05-0400 SaO2% (BldA) [Mass fraction] 97 % Michael Boykin MD Work Phone: [facility] 01-12-2024 14:05-0400 Systolic blood pressure 140 mm[Hg] Michael Boykin MD Work Phone: [facility] 01-05-2024 12:35-0500 Body height 177.8 cm Niesha Galdamez MD Work Phone: [facility] 01-05-2024 12:35-0500 Body temperature 97.11 [degF] Niesha Galdamez MD Work Phone: [facility] 01-05-2024 12:35-0500 Body weight 83.7 kg Niesha Galdamez MD Work Phone: [facility] 01-05-2024 12:35-0500 Diastolic blood pressure 80 mm[Hg] Niesha Galdamez MD Work Phone: [facility] 01-05-2024 12:35-0500 Heart rate 93 /min Niesha Galdamez MD Work Phone: [facility] 01-05-2024 12:35-0500 Respiratory rate 15 /min Niesha Galdamez MD Work Phone: [facility] 01-05-2024 12:35-0500 SaO2% (BldA) [Mass fraction] 96 % Niesha Galdamez MD Work Phone: [facility] 01-05-2024 12:35-0500 Systolic blood pressure 139 mm[Hg] Niesha Galdamez MD Work Phone: [facility] 12-30-2023 11:03-0500 Body temperature 98.49 [degF] JUANPABLO Varela MD Work Phone: [facility] 12-30-2023 11:03-0500 Body weight 84.8 kg JUANPABLO Varela MD Work Phone: [facility] 12-30-2023 11:03-0500 Diastolic blood pressure 81 mm[Hg] JUANPABLO Varela MD Work Phone: [facility] 12-30-2023 11:03-0500 Heart rate 89 /min JUANPABLO Varela MD Work Phone: [facility] 12-30-2023 11:03-0500 Respiratory rate 16 /min JUANPABLO Varela MD Work Phone: [facility] 12-30-2023 11:03-0500 SaO2% (BldA) [Mass fraction] 97 % JUANPABLO Varela MD Work Phone: [facility] 12-30-2023 11:03-0500 Systolic blood pressure 116 mm[Hg] JUANPABLO Varela MD Work Phone: [facility] 12-25-2023 14:58-0500 Body height 179.5 cm Michael Boykin MD Work Phone: [facility] 12-25-2023 14:58-0500 Body temperature 97.7 [degF] Michael Boykin MD Work Phone: [facility] 12-25-2023 14:58-0500 Body weight 84.2 kg Michael Boykin MD Work Phone: [facility] 12-25-2023 14:58-0500 Diastolic blood pressure 82 mm[Hg] Michael Boykin MD Work Phone: [facility] 12-25-2023 14:58-0500 Heart rate 88 /min Michael Boykin MD Work Phone: [facility] 12-25-2023 14:58-0500 Respiratory rate 16 /min Michael Boykin MD Work Phone: [facility] 12-25-2023 14:58-0500 SaO2% (BldA) [Mass fraction] 98 % Michael Boykin MD Work Phone: [facility] 12-25-2023 14:58-0500 Systolic blood pressure 141 mm[Hg] Michael Boykin MD Work Phone: [facility] 09-03-2023 09:15-0400 Body temperature 97.9 [degF] Chair Jordan Work Phone: [facility] 09-03-2023 09:15-0400 Diastolic blood pressure 71 mm[Hg] Chair Jordan Work Phone: [facility] 09-03-2023 09:15-0400 Heart rate 77 /min Chair Jordan Work Phone: [facility] 09-03-2023 09:15-0400 Respiratory rate 16 /min Chair [place] Work Phone: [facility] 09-03-2023 09:15-0400 SaO2% (BldA) [Mass fraction] 97 % Chair Jordan Work Phone: [facility] 09-03-2023 09:15-0400 Systolic blood pressure 106 mm[Hg] Chair [place] Work Phone: [facility] 09-02-2023 09:01-0400 Body height 179.5 cm Michael Boykin MD Work Phone: [facility] 09-02-2023 09:01-0400 Body temperature 97.39 [degF] Michael Boykin MD Work Phone: [facility] 09-02-2023 09:01-0400 Body weight 80.38 kg Michael Boykin MD Work Phone: [facility] 09-02-2023 09:01-0400 Diastolic blood pressure 75 mm[Hg] Michael Boykin MD Work Phone: [facility] 09-02-2023 09:01-0400 Heart rate 80 /min Michael Boykin MD Work Phone: [facility] 09-02-2023 09:01-0400 Respiratory rate 16 /min Michael Boykin MD Work Phone: [facility] 09-02-2023 09:01-0400 SaO2% (BldA) [Mass fraction] 97 % Michael Boykin MD Work Phone: [facility] 09-02-2023 09:01-0400 Systolic blood pressure 130 mm[Hg] Michael Boykin MD Work Phone: [facility] 07-09-2023 09:11-0400 Body temperature 98.01 [degF] Chair [place] Work Phone: [facility] 07-09-2023 09:11-0400 Diastolic blood pressure 68 mm[Hg] Chair Jordan Work Phone: [facility] 07-09-2023 09:11-0400 Heart rate 74 /min Chair [place] Work Phone: [facility] 07-09-2023 09:11-0400 Respiratory rate 16 /min Chair [place] Work Phone: [facility] 07-09-2023 09:11-0400 SaO2% (BldA) [Mass fraction] 98 % Chair [place] Work Phone: [facility] 07-09-2023 09:11-0400 Systolic blood pressure 112 mm[Hg] Chair [place] Work Phone: [facility] 07-08-2023 11:42-0400 Body temperature 98.01 [degF] Chair [place] Work Phone: [facility] 07-08-2023 11:42-0400 Diastolic blood pressure 64 mm[Hg] Chair [place] Work Phone: [facility] 07-08-2023 11:42-0400 Heart rate 54 /min Chair [place] Work Phone: [facility] 07-08-2023 11:42-0400 Respiratory rate 16 /min Chair [place] Work Phone: [facility] 07-08-2023 11:42-0400 SaO2% (BldA) [Mass fraction] 97 % Chair [place] Work Phone: [facility] 07-08-2023 11:42-0400 Systolic blood pressure 98 mm[Hg] Chair [place] Work Phone: [facility] 07-08-2023 08:41-0400 Body height 179.5 cm Michael Boykin MD Work Phone: [facility] 07-08-2023 08:41-0400 Body temperature 97.59 [degF] Michael Boykin MD Work Phone: [facility] 07-08-2023 08:41-0400 Body weight 76.57 kg Michael Boykin MD Work Phone: [facility] 07-08-2023 08:41-0400 Diastolic blood pressure 70 mm[Hg] Michael Boykin MD Work Phone: [facility] 07-08-2023 08:41-0400 Heart rate 85 /min Michael Boykin MD Work Phone: [facility] 07-08-2023 08:41-0400 Respiratory rate 18 /min Michael Boykin MD Work Phone: [facility] 07-08-2023 08:41-0400 SaO2% (BldA) [Mass fraction] 97 % Michael Boykin MD Work Phone: [facility] 07-08-2023 08:41-0400 Systolic blood pressure 116 mm[Hg] Michael Boykin MD Work Phone: [facility] 06-11-2023 08:57-0400 Body temperature 98.29 [degF] Chair [place] Work Phone: [facility] 06-11-2023 08:57-0400 Diastolic blood pressure 72 mm[Hg] Chair [place] Work Phone: [facility] 06-11-2023 08:57-0400 Heart rate 70 /min Chair [place] Work Phone: [facility] 06-11-2023 08:57-0400 Respiratory rate 18 /min Chair [place] Work Phone: [facility] 06-11-2023 08:57-0400 SaO2% (BldA) [Mass fraction] 98 % Chair Jordan Work Phone: [facility] 06-11-2023 08:57-0400 Systolic blood pressure 117 mm[Hg] Chair Jordan Work Phone: [facility] 06-10-2023 14:09-0400 Body temperature 98.2 [degF] Chair [place] Work Phone: [facility] 06-10-2023 14:09-0400 Diastolic blood pressure 63 mm[Hg] Chair Jordan Work Phone: [facility] 06-10-2023 14:09-0400 Heart rate 70 /min Chair Jordan Work Phone: [facility] 06-10-2023 14:09-0400 Respiratory rate 16 /min Chair Jordan Work Phone: [facility] 06-10-2023 14:09-0400 SaO2% (BldA) [Mass fraction] 96 % Chair Jordan Work Phone: [facility] 06-10-2023 14:09-0400 Systolic blood pressure 102 mm[Hg] Chair [place] Work Phone: [facility] 06-10-2023 09:00-0400 Body height 179.5 cm Chair Jordan Work Phone: [facility] 06-10-2023 09:00-0400 Body weight 79.83 kg Chair [place] Work Phone: [facility] 06-05-2023 15:27-0400 Body height 177.8 cm Michael Boykin MD Work Phone: [facility] 06-05-2023 15:27-0400 Body temperature 97.39 [degF] Michael Boykin MD Work Phone: [facility] 06-05-2023 15:27-0400 Body weight 80.56 kg Michael Boykin MD Work Phone: [facility] 06-05-2023 15:27-0400 Diastolic blood pressure 72 mm[Hg] Michael Boykin MD Work Phone: [facility] 06-05-2023 15:27-0400 Heart rate 83 /min Michael Boykin MD Work Phone: [facility] 06-05-2023 15:27-0400 Respiratory rate 16 /min Michael Boykin MD Work Phone: [facility] 06-05-2023 15:27-0400 SaO2% (BldA) [Mass fraction] 96 % Michael Boykin MD Work Phone: [facility] 06-05-2023 15:27-0400 Systolic blood pressure 129 mm[Hg] Michael Boykin MD Work Phone: [facility] 05-27-2023 14:51-0400 Body height 177.8 cm Niesha Galdamez MD Work Phone: [facility] 05-27-2023 14:51-0400 Body temperature 98.01 [degF] Niesha Galdamez MD Work Phone: [facility] 05-27-2023 14:51-0400 Body weight 80.2 kg Niesha Galdamez MD Work Phone: [facility] 05-27-2023 14:51-0400 Diastolic blood pressure 85 mm[Hg] Niesha Galdamez MD Work Phone: [facility] 05-27-2023 14:51-0400 Heart rate 90 /min Niesha Galdamez MD Work Phone: [facility] 05-27-2023 14:51-0400 Respiratory rate 18 /min Niesha Galdamez MD Work Phone: [facility] 05-27-2023 14:51-0400 SaO2% (BldA) [Mass fraction] 97 % Niesha Galdamez MD Work Phone: [facility] 05-27-2023 14:51-0400 Systolic blood pressure 144 mm[Hg] Niesha Galdamez MD Work Phone: [facility] 05-22-2023 14:58-0400 Body height 177.8 cm Michael Boykin MD Work Phone: [facility] 05-22-2023 14:58-0400 Body temperature 98.29 [degF] Michael oBykin MD Work Phone: [facility] 05-22-2023 14:58-0400 Body weight 78.74 kg Michael Boykin MD Work Phone: [facility] 05-22-2023 14:58-0400 Diastolic blood pressure 73 mm[Hg] Michael Boykin MD Work Phone: [facility] 05-22-2023 14:58-0400 Heart rate 84 /min Michael Boykin MD Work Phone: [facility] 05-22-2023 14:58-0400 Respiratory rate 16 /min Michael Boykin MD Work Phone: [facility] 05-22-2023 14:58-0400 SaO2% (BldA) [Mass fraction] 97 % Michael Boykin MD Work Phone: [facility] 05-22-2023 14:58-0400 Systolic blood pressure 120 mm[Hg] Michael Boykin MD Work Phone: [facility] 05-13-2023 10:57-0400 Body height 177.8 cm Michael Boykin MD Work Phone: [facility] 05-13-2023 10:57-0400 Body temperature 98.2 [degF] Michael Boykin MD Work Phone: [facility] 05-13-2023 10:57-0400 Body weight 79.47 kg Michael Boykin MD Work Phone: [facility] 05-13-2023 10:57-0400 Diastolic blood pressure 70 mm[Hg] Michael Boykin MD Work Phone: [facility] 05-13-2023 10:57-0400 Heart rate 75 /min Michael Boykin MD Work Phone: [facility] 05-13-2023 10:57-0400 Respiratory rate 16 /min Michael Boykin MD Work Phone: [facility] 05-13-2023 10:57-0400 SaO2% (BldA) [Mass fraction] 97 % Michael Boykin MD Work Phone: [facility] 05-13-2023 10:57-0400 Systolic blood pressure 134 mm[Hg] Michael Boykin MD Work Phone: [facility] 04-29-2023 13:13-0400 Blood Pressure Location Chiquita NILL [facility] [place] 04-29-2023 13:13-0400 Diastolic blood pressure 76 mm[Hg] Chiquita NILL [facility] [place] 04-29-2023 13:13-0400 Heart rate 72 /min Chiquita NILL [facility] [place] 04-29-2023 13:13-0400 Respiratory rate 16 /min Chiquita NILL [facility] [place] 04-29-2023 13:13-0400 Systolic blood pressure 122 mm[Hg] Chiquita NILL [facility] [place] Encounters Encounter Date Encounter Type Care Provider Facility Start: 03-10-2024 Telephone encounter Noah slater RN Work Phone: Hematology/Oncology Start: 03-09-2024 End: 03-09-2024 ambulatory NIESHA GALDAMEZ Facility:[facility] Start: 03-09-2024 End: 03-09-2024 ambulatory Apheresis Nate Main Work Phone: Hematology/Oncology Comment on above: 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) (Primary Dx) Start: 03-09-2024 End: 03-09-2024 ambulatory CHIQUITA DAVIS Facility:[facility] Start: 03-08-2024 End: 03-09-2024 Patient encounter procedure Niesha Galdamez MD Work Phone: Hematology/Oncology Start: 03-08-2024 End: 03-09-2024 ambulatory [facility] [place] 1 Work Phone: Hematology/Oncology Comment on above: 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) 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) (Primary Dx); History of follicular lymphoma Start: 03-01-2024 Telephone encounter Ivania Juarez RT(R) Radiology Pet CT Comment on above: Appointment 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) (Primary Dx) Start: 02-26-2024 Telephone encounter Financial Navigator Nate Work Phone: Hematology/Oncology Comment on above: Benefits Investigati on Start: 02-25-2024 Telephone encounter Krystyna BARBA Work Phone: Hematology/Oncology Comment on above: Social Work Services Start: 02-24-2024 End: 02-25-2024 ambulatory [facility] Nate [facility] [place] 1 Work Phone: Hematology/Oncology Comment on above: 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); Personal history of diseases of blood and blood-forming organs Start: 02-24-2024 End: 02-24-2024 Nursing evaluation of patient and report Radha Peng RN Work Phone: Hematology/Oncology Comment on above: 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) (Primary Dx) Start: 02-23-2024 Social Work Krystyna BARBA Work Phone: Hematology/Oncology Start: 02-18-2024 Telephone encounter Niesha diaz MD Work Phone: Hematology/Oncology Comment on above: 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 (Next Steps) 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) (Primary Dx); Personal history of diseases of blood and blood-forming organs; Diffuse large B-cell lymphoma, unspecified body region (HCC); Encounter for monitoring cardiotoxic drug therapy Nm Pet Request Start: 02-12-2024 End: 02-12-2024 ambulatory Niesha Galdamez MD Work Phone: Hematology/Oncology Comment on above: 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) (Primary Dx); History of follicular lymphoma Start: 02-12-2024 End: 02-12-2024 Patient encounter procedure Niesha Galdamez MD Work Phone: [facility] Start: 02-02-2024 End: 02-02-2024 Patient encounter procedure Michael Boykin MD Work Phone: [facility] Start: 02-02-2024 End: 02-02-2024 ambulatory Brit Arzola MA [facility] Comment on above: Population Health Na vigation Outreach (ACO NO PCP) 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); History of follicular lymphoma Start: 01-30-2024 End: 01-30-2024 ambulatory NIESHA GALDAMEZ Facility:[facility] Start: 01-28-2024 ambulatory SELF SELF Facility:[facility] Start: 01-28-2024 End: 01-29-2024 Office outpatient new 60 minutes Dorcas Bolanos MD Work Phone: Division of Hematology & Oncology at [facility] Comment on above: Diffuse large B-cell lymphoma, unspecified body region Start: 01-27-2024 Telephone encounter Radha womack RN Work Phone: Hematology/Oncology Comment on above: Patient Update (Init ial CAR-T phone call) Start: 01-23-2024 ambulatory Radha Peng RN Work Phone: Hematology/Oncology Comment on above: CAR-T Therapy Start: 01-23-2024 E-mail encounter dia m caregiver Radha Peng RN Work Phone: [facility] Start: 01-16-2024 End: 01-16-2024 ambulatory Niesha Galdamez MD Work Phone: Hematology/Oncology Comment on above: 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) (Primary Dx) Start: 01-16-2024 End: 01-16-2024 Telemedicine consultation with patient Niesha Galdamez MD Work Phone: [facility] Start: 01-14-2024 Telephone encounter Ivania frias RN Work Phone: Hematology/Oncology Comment on above: Care Coordination (A ppointment; Treatment Questions) Start: 01-12-2024 End: 01-12-2024 ambulatory MICHAEL BOYKIN Facility:[facility] Start: 01-12-2024 End: 01-12-2024 ambulatory Michael Boykin MD Work Phone: Hematology/Oncology Comment on above: 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) (Primary Dx); History of follicular lymphoma Start: 01-12-2024 End: 01-12-2024 Patient encounter procedure Michael Boykin MD Work Phone: [facility] Start: 01-05-2024 End: 01-05-2024 ambulatory Niesha Galdamez MD Work Phone: Hematology/Oncology Comment on above: Non-Hodgkin lymphoma of lymph nodes of multiple regions, unspecified non-Hodgkin lymphoma type (HCC) (Primary Dx); 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) Start: 01-05-2024 End: 01-05-2024 Patient encounter procedure Niesha Galdamez MD Work Phone: [facility] Start: 12-30-2023 End: 12-30-2023 ambulatory Viviana VARELA Facility:[facility] Start: 12-30-2023 End: 12-30-2023 Patient encounter procedure Viviana Varela MD Work Phone: Radiation Oncology Comment on above: Follicular lymphoma grade IIIa, unspecified body region (HCC) (Primary Dx) Start: 12-29-2023 Telephone encounter Ivania frias RN Work Phone: Hematology/Oncology Comment on above: Care Coordination (A ppointment) Start: 12-25-2023 End: 12-25-2023 ambulatory MICHAEL BOYKIN Facility:[facility] Start: 12-25-2023 End: 12-25-2023 Patient encounter procedure Michael Boykin MD Work Phone: [facility] Start: 12-25-2023 End: 12-25-2023 ambulatory Lab[facility] [facility] [place] Work Phone: Hematology/Oncology Comment on above: Non-Hodgkin lymphoma of lymph nodes of multiple regions, unspecified non-Hodgkin lymphoma type (HCC) 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); Acquired hypothyroidism; History of diffuse large B-cell lymphoma Start: 12-24-2023 End: 12-25-2023 ambulatory Chiquita RIVERA Facility:[facility] Start: 12-24-2023 End: 12-24-2023 Patient encounter procedure Chiquita RIVERA General Surgery Nill/Said [place] Start: 12-22-2023 Telephone encounter Ivania frias RN Work Phone: Hematology/Oncology Comment on above: Care Coordination (P athology Results) Start: 12-17-2023 End: 12-18-2023 ambulatory Chiquita RIVERA Facility: [place] Start: 12-15-2023 Telephone encounter Michael parker MD Work Phone: Cancer [facility] Comment on above: Future Appointment Start: 12-09-2023 End: 12-10-2023 ambulatory Chiquita RIVERA Facility: [place] Start: 11-20-2023 End: 11-20-2023 ambulatory MICHAEL BOYKIN Facility:[facility] Start: 11-18-2023 End: 11-18-2023 ambulatory CLEO FELIZ Facility:[facility] Start: 10-29-2023 End: 10-29-2023 ambulatory MICHAEL BOYKIN Facility:[facility] Start: 10-28-2023 End: 10-28-2023 ambulatory MICHAEL BOYKIN Facility:[facility] Start: 10-23-2023 Telephone encounter Michael parker MD Work Phone: Hematology/Oncology Comment on above: Lab Orders Start: 10-01-2023 End: 10-01-2023 ambulatory Chair 10 [place] Work Phone: Hematology/Oncology Comment on above: 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) Start: 09-30-2023 End: 10-01-2023 ambulatory MICHAEL BOYKIN Facility:[facility] Start: 09-30-2023 End: 09-30-2023 ambulatory [facility] [facility] [place] Work Phone: Hematology/Oncology Comment on above: 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) Start: 09-23-2023 End: 09-23-2023 ambulatory MICHAEL BOYKIN Facility:[facility] Start: 09-03-2023 End: 09-03-2023 ambulatory Chair Marciano [place] Work Phone: Hematology/Oncology Comment on above: 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) Start: 09-02-2023 End: 09-02-2023 ambulatory MICHAEL BOYKIN Facility:[facility] Start: 09-02-2023 End: 09-02-2023 ambulatory Michael Boykin MD Work Phone: Hematology/Oncology Comment on above: 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) Start: 09-02-2023 End: 09-02-2023 Patient encounter procedure Michael Boykin MD Work Phone: [facility] Start: 08-06-2023 End: 08-06-2023 ambulatory MICHAEL BOYKIN Facility:[facility] Start: 08-05-2023 End: 08-06-2023 ambulatory MICHAEL BOYKIN Facility:[facility] Start: 08-05-2023 End: 08-05-2023 ambulatory [facility] [place] Work Phone: Hematology/Oncology Comment on above: 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) Start: 08-04-2023 Telephone encounter Cleo pacheco APRN.CNP Work Phone: Hematology/Oncology Comment on above: Lab Orders Start: 07-22-2023 End: 07-22-2023 ambulatory [facility] [place] Work Phone: Hematology/Oncology Comment on above: 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) Start: 07-09-2023 End: 07-09-2023 ambulatory MICHAEL BOYKIN Facility:[facility] Start: 07-09-2023 End: 07-09-2023 ambulatory Chair Edel Ortega Work Phone: Hematology/Oncology Comment on above: 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) Start: 07-08-2023 End: 07-08-2023 ambulatory MICHAEL BOYKIN Facility:[facility] Start: 07-08-2023 End: 07-08-2023 Patient encounter procedure Michael Boykin MD Work Phone: [facility] Start: 07-08-2023 End: 07-08-2023 ambulatory [facility] [facility] [place] Work Phone: Hematology/Oncology Comment on above: Grade [...] Consent) Start: 06-19-2023 End: 06-19-2023 ambulatory MICHAEL BOKYIN Facility:[facility] Start: 06-19-2023 End: 06-19-2023 ambulatory Lab[facility] [place] Work Phone: Hematology/Oncology Comment on above: 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) Start: 06-17-2023 End: 06-18-2023 ambulatory Chiquita RIVERA Facility:[facility] Start: 06-17-2023 End: 06-17-2023 Patient encounter procedure Chiquita SILVERIOMana General Surgery Nill/[facility] Start: 06-12-2023 Telephone encounter Fifi Sommers RN [...] (HCC) (Primary Dx) Start: 06-06-2023 Telephone encounter Ivanai frias RN Work Phone: Hematology/Oncology Comment on above: 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 (Uric Acid Results) 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 (Medication Problem) Start: 06-06-2023 End: 06-06-2023 ambulatory MICHAEL BOYKIN Facility:[facility] Start: 06-05-2023 End: 06-05-2023 ambulatory MICHAEL BOYKIN Facility:[facility] Start: 06-05-2023 End: 06-05-2023 Patient encounter procedure [...] MD Work Phone: Hematology/Oncology Comment on above: 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 Start: 05-28-2023 End: 05-29-2023 ambulatory Chiquita RIVERA Facility::[id number] Start: 05-27-2023 End: 05-28-2023 ambulatory Niesha Galdamez MD Work Phone: Hematology/Oncology Comment on above: History of diffuse l arge B-cell lymphoma (Primary Dx); 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); 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) Start: 05-27-2023 End: 05-28-2023 Patient encounter procedure Niesha Galdamez MD Work Phone: [facility] Start: 05-23-2023 Telephone encounter Michael parker MD Work Phone: Cancer [facility] Comment on above: Appointment Start: 05-22-2023 End: 05-22-2023 ambulatory MICHAEL BOYKIN Facility:[facility] Start: 05-22-2023 End: 05-22-2023 ambulatory Michael Boykin MD Work Phone: Hematology/Oncology Comment on above: 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) (Primary Dx) Start: 05-22-2023 End: 05-22-2023 Patient encounter procedure Michael Boykin MD Work Phone: [place] Start: 05-21-2023 Telephone encounter Ivania frias RN Work Phone: Hematology/Oncology Comment on above: Care Coordination (P athology Update) Start: 05-19-2023 Telephone encounter Ivania frias RN Work Phone: Hematology/Oncology Comment on above: Care Coordination (P athology Results) Start: 05-16-2023 Telephone encounter [facility] MD [facility] Comment on above: 2nd opinion path Start: 05-14-2023 End: 05-15-2023 ambulatory Chiquita R NILL Facility:[facility] Start: 05-14-2023 End: 05-14-2023 Patient encounter procedure Chiquita R NILL General Surgery Nill/Said [place] Start: 05-13-2023 End: 05-13-2023 ambulatory Michael Boykin MD Work Phone: Hematology/Oncology Comment on above: Non-Hodgkin lymphoma of lymph nodes of multiple regions, unspecified non-Hodgkin lymphoma type (HCC) (Primary Dx); Acquired hypothyroidism Start: 05-13-2023 End: 05-13-2023 Patient encounter procedure Michael Boykin MD Work Phone: [place] Start: 05-07-2023 End: 05-08-2023 ambulatory Chiquita R NILL Facility:CD:[id number] Start: 04-29-2023 End: 04-30-2023 ambulatory EMELIA GONZALEZ Facility:[facility] Start: 04-29-2023 End: 04-29-2023 Patient encounter procedure Chiquita R NILL General Surgery Nill/Said [place] Start: 04-17-2023 ambulatory Chiquita NILL Facility:[facility] Start: 04-02-2023 End: 04-03-2023 ambulatory EMELIA GONZALEZ [facility] Start: 04-02-2023 End: 04-02-2023 Subsequent hospital visit by physician [facility] Comment on above: Non-Hodgkin's lympho ma, unspecified body region, unspecified non-Hodgkin lymphoma type (HCC); Hypothyroidism, unspecified type Start: 04-05-2021 End: 04-05-2021 Subsequent hospital visit by physician [facility] Laboratory Comment on above: Non-Hodgkin's lympho ma, unspecified body region, unspecified non-Hodgkin lymphoma type (HCC); Hypothyroidism, unspecified type Start: 04-17-2020 End: 04-17-2020 Subsequent hospital visit by physician [facility] Lab Drawing Room [facility] Laboratory Comment on above: Non-Hodgkin's lympho ma, unspecified body region, unspecified non-Hodgkin lymphoma type (HCC); Hypothyroidism, unspecified type; Encounter for screening for lung cancer Procedures Date Procedure Procedure Detail Performing Clinician Start: 03-09-2024 Bilirubin direct Namrata Roy MD Work Phone: Start: 03-09-2024 C-reactive protein Giana Roy MD Work Phone: Start: 03-08-2024 Blood count complete auto&auto difrntl wbc Niesha Galdamez MD Work Phone: Start: 03-08-2024 C-reactive protein Haris Galdamez MD Work Phone: Start: 02-24-2024 Echocardiography MICHAEL BOYKIN Start: 02-24-2024 Antibody screen MICHAEL ARVIZU Comment on above: Order Comment: Speci men Type: BLOOD SPECIMENOrdering Facility: [facility] Address: [address] [place] [address] Performed By: #### T SCR ####CC MAIN BLOOD BANKCLIA [id number] [place] [address] [place] Start: 02-24-2024 Antibody screen rbc each serum technique Niesha Galdamez MD Work Phone: Start: 02-24-2024 D-DIMER Niesha diaz MD Work Phone: Start: 02-24-2024 Thromboplastin time partial plasma/whole blood Niesha Galdamez MD Work Phone: Start: 01-28-2024 Comprehensive metabo lic panel Patti Isidro [employer]CH[employer]ICIAN Work Phone: Start: 01-28-2024 Hepatitis b surf ant ibody hbsab Patti Isidro [employer] TECHNICIAN Work Phone: Start: 01-28-2024 Iaad ia hiv-1 ag w/h iv-1 & hiv-2 antbdy single Patti Isidro [employer] TECHNICIAN Work Phone: Start: 12-25-2023 Blood count complete auto&auto difrntl wbc Michael Boykin MD Work Phone: Start: 12-17-2023 Excision of inguinal lymph nodes Chiquita MIGUEL Start: 09-30-2023 Blood count complete auto&auto difrntl [...] Insertion of implant able venous access port Ch[facility]IOMana Start: 05-07-2023 Biopsy of inguinal l ymph node Chiquita MIGUEL Start: 04-02-2023 End: 04-02-2023 Comprehensive metabolic panel Emelia Gonzalez MD Work Phone: Start: 04-05-2021 Comprehensive metabo lic panel Maritza Mendoza MD Work Phone: Start: 04-17-2020 Blood count complete auto&auto difrntl wbc Maritza Mendoza Work Phone: Start: 04-17-2020 Comprehensive metabo lic panel Maritza Mendoza Work Phone: Start: 04-17-2020 Lactate dehydrogenase ldh Maritza Mendoza Work Phone: Start: 01-28-2002 Thoracentesis Chiquita GALLARDO Start: 01-20-2002 Bronchoscopy Chiquita [place] Biopsy of lymph node Chiquita MIGUEL Plan of Treatment Date Care Activity Detail Author Start: 03-09-2027 [facility]: 03-08-2027 [facility] Start: 02-23-2027 [facility] Start: 01-27-2027 [facility] Start: 12-25-2026 Diabetes Screening Diabetes [facility] Start: 11-18-2026 [facility] Start: 09-30-2026 Diabetes Screening Diabetes Screende g [facility] Start: 09-02-2026 Diabetes Screening Diabetes Screende g [facility] Start: 08-05-2026 [facility] Start: 07-22-2026 [facility] Start: 07-08-2026 DIABETES SCREEN DIABETES SCREEN [facility] Start: 06-19-2026 DIABETES SCREEN DIABETES SCREEN [facility] Start: 06-05-2026 DIABETES SCREEN DIABETES SCREEN [facility] Start: 05-13-2026 DIABETES SCREEN [facility] Start: 07-04-2024 Influenza vaccination INFLUENZ A VACCINE (Season Ended) [facility] Start: 04-06-2024 End: 04-06-2024 Patient encounter procedure 04/06/2024 7:30 AM EDT Office Visit Admitting [address] [place] [address] DLBCL Admitting Comment on above: DLBCL Start: 04-03-2024 End: 04-03-2024 ambulatory 04/03/2024 7:30 AM [facility] Hematology[facility]Oncology [address] [place] [address] DLBCL/C83.38 Hematology/Oncology Comment on above: DLBCL/C83.38 Start: 04-02-2024 End: 04-02-2024 ambulatory 04/02/2024 10:15 AM [facility] Hematology/Oncology [address] [place] [address] DLBCL/C83.38 Hematology/Oncology Comment on above: DLBCL/C83.38 Start: 04-01-2024 End: 04-01-2024 ambulatory Hematology/Oncology Comment on above: DLBCL DLBCL/C83.38 Start: 04-01-2024 End: 04-01-2024 ambulatory 04/01/2024 8:20 AM [facility] Hematology/Oncology [address] [id number] DLBCL/C83.38 Hematology/Oncology Comment on above: DLBCL/C83.38 Start: 03-31-2024 End: 06-30-2024 Bilirubin.total [Mass/volume] in Serum or Plasma BILIRUBIN TOTAL BLD Lab Routine 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) Expected: 03/31/2024, Expires: 06/30/2024 [facility] Work Phone: Comment on above: Expected: 03/31/2024 , Expires: 06/30/2024 Start: 03-31-2024 End: 06-30-2024 C reactive protein [Mass/volume] in Serum or Plasma C-REACTIVE PROTEIN Lab Routine 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) Expected: 03/31/2024, Expires: 06/30/2024 [facility] Work Phone: Comment on above: Expected: 03/31/2024 , Expires: 06/30/2024 Start: 03-31-2024 End: 06-30-2024 CBC W Auto Differential panel - Blood COMPLETE BLOOD COUNT AND DIFFERENTIAL Lab Routine 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) Expected: 03/31/2024, Expires: 06/30/2024 [facility] Work Phone: Comment on above: Expected: 03/31/2024 , Expires: 06/30/2024 Start: 03-31-2024 End: 06-30-2024 Comprehensive metabolic 2000 panel - Serum or Plasma COMPREHENSIVE METABOLIC PANEL Lab Routine 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) Expected: 03/31/2024, Expires: 06/30/2024 [facility] Work Phone: Comment on above: Expected: 03/31/2024 , Expires: 06/30/2024 Start: 03-31-2024 End: 06-30-2024 Lactate dehydrogenase [Enzymatic activity/volume] in Serum or Plasma LACTATE DEHYDROGENASE Lab Routine 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) Expected: 03/31/2024, Expires: 06/30/2024 [facility] Work Phone: Comment on above: Expected: 03/31/2024 , Expires: 06/30/2024 Start: 03-31-2024 End: 06-30-2024 Phosphate [Mass/volume] in Serum or Plasma PHOSPHORUS INORGANIC Lab Routine 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) Expected: 03/31/2024, Expires: 06/30/2024 [facility] Work Phone: Comment on above: Expected: 03/31/2024 , Expires: 06/30/2024 Start: 03-31-2024 End: 06-30-2024 Urate [Mass/volume] in Serum or Plasma URIC ACID Lab Routine 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) Expected: 03/31/2024, Expires: 06/30/2024 [facility] Work Phone: Comment on above: Expected: 03/31/2024 , Expires: 06/30/2024 Start: 03-31-2024 End: 03-31-2024 Patient encounter procedure Molecular Imaging Comment on above: NM PET/CT SKULL-THIG H SUB Start: 03-15-2024 End: 03-15-2024 Patient encounter procedure Radiation Oncology Comment on above: radiate inguinal/pel margaret nodes per staff message radiate inguinal/pel margaret nodes Start: 03-09-2024 End: 03-09-2024 ambulatory 03/09/2024 9:30 AM EDT Infusion Center Hematology/Oncology [address] [place] [address] DLBCL/C83.38 Hematology/Oncology Comment on above: DLBCL/C83.38 Start: 03-09-2024 End: 03-09-2024 Admission to same day surgery center 03/09/2024 7:30 AM EDT - 03/09/2024 9:30 AM EDT Surgery Angio [address] [id number] [employer]INEER [address] [place] [address] INSERTION NON-TUNNELED CV CATHETER OVER AGE 5 Angio Comment on above: INSERTION NON-TUNNEL ED CV CATHETER OVER AGE 5 Start: 03-09-2024 Subsequent hospital visit by physician 03/09/2024 7:30 AM EDT Hospital Encounter Angio [address] [id number] [employer] ENGINEER [address] [id number] 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) [C83.38] Angio Comment on above: 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) [C83.38] Start: 03-09-2024 End: 03-09-2024 Insj non-tunneled central venous cath age 6 yr/> [facility] ANGIO HB6 Start: 03-08-2024 End: 03-08-2024 ambulatory Hematology/Oncology Comment on above: DLBCL DLBCL/C83.38 Start: 03-08-2024 End: 06-07-2024 BLOOD TB SCREEN [facility] Work Phone: Comment on above: Expected: 03/08/2024 , Expires: 06/07/2024 Start: 02-24-2024 End: 02-24-2024 Patient encounter procedure 02/24/2024 2:30 PM EDT Office Visit Cardiology [address] [id number] 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) [C83.38] Cardiology Comment on above: 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) [C83.38] Start: 02-24-2024 End: 05-25-2024 aPTT in Platelet poor plasma by Coagulation assay ACTIVATED PARTIAL THROMBOPLASTIN TIME Lab Routine Personal history of diseases of blood and blood-forming organs 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) Expected: 02/24/2024, Expires: 05/25/2024 [facility] Work Phone: Comment on above: Expected: 02/24/2024 , Expires: 05/25/2024 Start: 02-24-2024 End: 05-25-2024 BLOOD TB SCREEN [facility] Work Phone: Comment on above: Expected: 02/24/2024 , Expires: 05/25/2024 Start: 02-24-2024 End: 05-25-2024 CBC W Auto Differential panel - Blood COMPLETE BLOOD COUNT AND DIFFERENTIAL Lab Routine 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) Expected: 02/24/2024, Expires: 05/25/2024 [facility] Work Phone: Comment on above: Expected: 02/24/2024 , Expires: 05/25/2024 Start: 02-24-2024 End: 05-25-2024 Comprehensive metabolic 2000 panel - Serum or Plasma COMPREHENSIVE METABOLIC PANEL Lab Routine 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) Expected: 02/24/2024, Expires: 05/25/2024 [facility] Work Phone: Comment on above: Expected: 02/24/2024 , Expires: 05/25/2024 Start: 02-24-2024 End: 05-25-2024 Erythrocyte sedimentation rate SEDIMENTATION RATE, WESTERGREN Lab Routine 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) Expected: 02/24/2024, Expires: 05/25/2024 [facility] Work Phone: Comment on above: Expected: 02/24/2024 , Expires: 05/25/2024 Start: 02-24-2024 End: 05-25-2024 Fibrin D-dimer FEU [Mass/volume] in Platelet poor plasma D-DIMER Lab Routine 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) Expected: 02/24/2024, Expires: 05/25/2024 [facility] Work Phone: Comment on above: Expected: 02/24/2024 , Expires: 05/25/2024 Start: 02-24-2024 End: 05-25-2024 Fibrinogen [Mass/volume] in Platelet poor plasma by Coagulation assay FIBRINOGEN Lab Routine 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) Expected: 02/24/2024, Expires: 05/25/2024 [facility] Work Phone: Comment on above: Expected: 02/24/2024 , Expires: 05/25/2024 Start: 02-24-2024 End: 05-25-2024 Hepatitis B virus surface Ab [Presence] in Serum HEPATITIS B SURFACE ANTIBODY Lab Routine 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) Expected: 02/24/2024, Expires: 05/25/2024 [facility] Work Phone: Comment on above: Expected: 02/24/2024 , Expires: 05/25/2024 Start: 02-24-2024 End: 05-25-2024 IDM PANEL ADULT [facility] Work Phone: Comment on above: Expected: 02/24/2024 , Expires: 05/25/2024 Start: 02-24-2024 End: 05-25-2024 IMMUNOGLOBULINS,IGG,IGA,I GM IMMUNOGLOBULINS,IGG,IGA ,IGM Lab Routine 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) Expected: 02/24/2024, Expires: 05/25/2024 [facility] Work Phone: Comment on above: Expected: 02/24/2024 , Expires: 05/25/2024 Start: 02-24-2024 End: 05-25-2024 Lactate dehydrogenase [Enzymatic activity/volume] in Serum or Plasma LACTATE DEHYDROGENASE Lab Routine 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) Expected: 02/24/2024, Expires: 05/25/2024 [facility] Work Phone: Comment on above: Expected: 02/24/2024 , Expires: 05/25/2024 Start: 02-24-2024 End: 05-25-2024 Magnesium [Mass/volume] in Serum or Plasma MAGNESIUM Lab Routine 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) Expected: 02/24/2024, Expires: 05/25/2024 [facility] Work Phone: Comment on above: Expected: 02/24/2024 , Expires: 05/25/2024 Start: 02-24-2024 End: 05-25-2024 PT panel - Platelet poor plasma by Coagulation assay PROTHROMBIN TIME Lab Routine Personal history of diseases of blood and blood-forming organs 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) Expected: 02/24/2024, Expires: 05/25/2024 [facility] Work Phone: Comment on above: Expected: 02/24/2024 , Expires: 05/25/2024 Start: 02-24-2024 End: 05-25-2024 TYPE + SCREEN TYPE + SCREEN Blood Bank Routine 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) Expected: 02/24/2024, Expires: 05/25/2024 [facility] Work Phone: Comment on above: Expected: 02/24/2024 , Expires: 05/25/2024 Start: 02-24-2024 End: 02-24-2024 ambulatory Hematology/Oncology Comment on above: DLBCL PLEASE PAGE [id number] WHEN THE PATIENT CHECKS IN Start: 02-24-2024 End: 02-24-2024 Nursing evaluation of patient and report Hematology/Oncology Comment on above: PLEASE PAGE [id number] WHEN THE PATIENT CHECKS IN Start: 02-18-2024 End: 05-19-2024 Magnesium [Mass/volume] in Serum or Plasma MAGNESIUM Lab Routine 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) Expected: 02/18/2024, Expires: 05/19/2024 [facility] Work Phone: Comment on above: Expected: 02/18/2024 , Expires: 05/19/2024 Start: 01-20-2024 End: 02-18-2025 PET+CT Guidance for localization of tumor of Skull base to mid-thigh-- W [id number] IV NM PET/CT SKULL-THIGH SUBSEQUENT Radiology Routine 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) Expected: 01/20/2024 (Approximate), Expires: 02/18/2025 [facility] Work Phone: Comment on above: Expected: 01/20/2024 (Approximate), Expires: 02/18/2025 Start: 12-25-2023 End: 03-25-2024 [id number]-[id number] [Mass/volume] in Serum or Plasma [facility] Work Phone: Comment on above: Expected: 12/25/2023 , Expires: 03/25/2024 Start: 11-03-2023 Advance Directive Discussion Advance Directive Discussion [facility] Start: 11-03-2023 Behavioral Health Screening Behavioral Health Screening [facility] Start: 11-03-2023 Depression Assessment Depression Ass essment [facility] Start: 10-28-2023 End: 01-27-2024 CBC W Auto Differential panel - Blood CBC + DIFF Lab Routine 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) Expected: 10/28/2023, Expires: 01/27/2024 [facility] Work Phone: Comment on above: Expected: 10/28/2023 , Expires: 01/27/2024 Start: 10-28-2023 End: 01-27-2024 Comprehensive metabolic 2000 panel - Serum or Plasma COMP METABOLIC PANEL Lab Routine 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) Expected: 10/28/2023, Expires: 01/27/2024 [facility] Work Phone: Comment on above: Expected: 10/28/2023 , Expires: 01/27/2024 Start: 08-05-2023 End: 10-05-2023 CBC W Auto Differential panel - Blood CBC + DIFF Lab Routine 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) Expected: 08/05/2023, Expires: 10/05/2023 [facility] Work Phone: Comment on above: Expected: 08/05/2023 , Expires: 10/05/2023 Start: 08-05-2023 End: 10-05-2023 Comprehensive metabolic 2000 panel - Serum or Plasma COMP METABOLIC PANEL Lab Routine 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) Expected: 08/05/2023, Expires: 10/05/2023 [facility] Work Phone: Comment on above: Expected: 08/05/2023 , Expires: 10/05/2023 Start: 07-22-2023 End: 09-21-2023 Basic metabolic 2000 panel - Serum or Plasma BASIC METABOLIC PNL Lab Routine 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) Expected: 07/22/2023 (Approximate), Expires: 09/21/2023 [facility] Work Phone: Comment on above: Expected: 07/22/2023 (Approximate), Expires: 09/21/2023 Start: 07-22-2023 End: 09-21-2023 CBC W Auto Differential panel - Blood CBC + DIFF Lab Routine 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) Expected: 07/22/2023 (Approximate), Expires: 09/21/2023 [facility] Work Phone: Comment on above: Expected: 07/22/2023 (Approximate), Expires: 09/21/2023 Start: 07-22-2023 End: 09-21-2023 Urate [Mass/volume] in Serum or Plasma URIC ACID BLOOD Lab Routine 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) Expected: 07/22/2023 (Approximate), Expires: 09/21/2023 [facility] Work Phone: Comment on above: Expected: 07/22/2023 (Approximate), Expires: 09/21/2023 Start: 07-04-2023 Influenza vaccination [facility] Start: 06-03-2023 Influenza vaccination Flu vacc ine (Season Ended) [facility] Start: 05-13-2023 End: 07-13-2023 Plzo-1-Klnoqrtkhjzly [Mass/volume] in Serum or Plasma [facility] Work Phone: Comment on above: Expected: 05/13/2023 , Expires: 07/13/2023 Start: 05-13-2023 End: 07-13-2023 Chronic hepatitis differentiation between hepatitis B and C virus panel - Serum or Plasma [facility] Work Phone: Comment on above: Expected: 05/13/2023 , Expires: 07/13/2023 Start: 04-16-2023 End: 04-16-2023 Patient encounter procedure 04/16/2023 Office Visit Oncology Emelia Gonzalez MD [address] [place], [place] [id number] [facility] Start: 04-02-2023 Annual Wellness Visi t (AWV) Annual Wellness Visit (AWV) [facility] Start: 11-03-2022 ADVANCE DIRECTIVE DISCUSSION ADVANCE DIRECTIVE DISCUSSION [facility] Start: 11-03-2022 DEPRESSION ASSESSMENT DEPRESSION ASS ESSMENT [facility] Start: 04-05-2022 Thyroid stimulating hormone measurement TSH testing [facility] Work Phone: Start: 2021 Abdominal aortic ane urysm screening [facility] Start: 2021 PNEUMOCOCCAL: 65+ (1 - PCV) PNEUMOCOCCAL: 65+ (1 - PCV) [facility] Start: 07-04-2021 Influenza vaccination Flu vacc ine (Season Ended) [facility] Work Phone: Start: 04-18-2021 End: 04-18-2021 Patient encounter procedure 04/18/2021 Office Visit Oncology Maritza Mendoza MD [address] [place], [place] [id number] [facility] Start: 07-04-2020 Influenza vaccination Flu vacc ine (Season Ended) [place], [place] Start: 04-19-2020 End: 04-19-2020 Office Visit 04/19/2020 Office Visit Oncology Maritza Mendoza MD [address] [place], [place] [id number] [facility] Start: 02-17-2020 TSH Qn TSH testing [place], [place] Start: 2016 RSV Vaccine (1 - 1-d ose 60+ series) RSV Vaccine (1 - 1-dose 60+ series) [facility] Start: 2011 PROSTATE CANCER SCRE ENING DISCUSSION PROSTATE CANCER SCREENING DISCUSSION [facility] Start: 2011 Prostate specific an tigen measurement Prostate Cancer Screening Discussion [facility] Start: 2006 Prostate specific an tigen measurement PROSTATE CANCER SCREENING DISCUSSION [facility] Start: 2006 Screening for malign ant neoplasm of colon Colon cancer screen colonoscopy [place], [place] Start: 2006 Screening for malign ant neoplasm of lung Lung Cancer Screening [facility] Start: 2006 Shingles Vaccine (1 of 2) Barrera gles Vaccine (1 of 2) [place], [place] Start: 2006 SHINGRIX VACCINE (1 of 2) BARRERA GRIX VACCINE (1 of 2) [facility] Start: 2001 COLOGUARD (FIT-DNA) COLOGUARD (FIT-D NA) [facility] Start: 2001 Colonoscopy COLONOSCOPY [facility] Start: 2001 COLORECTAL CANCER SCREENING COLORECTAL CANCER SCREENING [facility] Start: [address] COLONOGRAPHY [facility] Start: 2001 FECAL OCCULT BLOOD FECAL OCCULT BLOO D [facility] Start: 2001 Screening for malign ant neoplasm of colon [facility] Start: 2001 SIGMOIDOSCOPY SIGMOIDOSCOPY [facility] Start: 1996 Lipid panel [facility] Start: 1991 Lipid 1996 panel - S bukcy or Plasma Lipid Screening [facility] Start: 1991 Lipid panel Lipid Screening [facility] Start: 1991 LIPID SCREEN LIPID SCREEN [facility] Start: 1975 DTaP/Tdap/Td vaccine (1 - Tdap) DTaP/Tdap/Td vaccine (1 - Tdap) [facility] Start: 1975 Shingles vaccine (1 of 2) Barrera gles vaccine (1 of 2) [facility] Start: 1975 SHINGRIX VACCINE (1 of 2) BARRERA GRIX VACCINE (1 of 2) [facility] Start: 1975 Third diphtheria, te tanus and acellular pertussis (DTaP) vaccination TDAP (ADULT) [facility] Start: 1975 Urine microalbumin profile [facility] Start: 1975 Zoster vaccine hzv l michael for subcutaneous use ZOSTER (SHINGLES) VACCINE (1 of 2) [facility] Start: 1974 Annual 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 Team [employer] 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 Visit Annual PCP Team Chronic Disease Visit [facility] Start: 1974 Hepatitis C screening Hepatitis C sc reen [facility] Start: 1974 HEPATITIS C SCREENING HEPATITIS C SC REENING [facility] Start: 1971 HIV screening HIV screen [place], [place] Start: 1968 COVID-19 Vaccine (1) COVID-19 Vaccin e (1) [facility] [address] Phone: Start: 1968 Depression Screen Depression Screen [facility] Start: 1962 Pneumococcal 0-64 ye ars Vaccine (1 of 3 - PCV13) Pneumococcal 0-64 years Vaccine (1 of 3 - PCV13) [place], [place] Start: 1962 Pneumococcal 0-64 ye ars Vaccine (1 of 4 - PCV13) Pneumococcal 0-64 years Vaccine (1 of 4 - PCV13) [facility] Phone: Start: 1962 Pneumococcal 65+ yea rs Vaccine (1 - PCV) Pneumococcal 65+ years Vaccine (1 - PCV) [facility] Start: 1962 Pneumococcal vaccination PNEUM OCOCCAL VACCINE SERIES (1 of 2 - PCV) [facility] Start: 1962 Pneumococcal Vaccine : 65+ (1 - PCV) Pneumococcal Vaccine: 65+ (1 - PCV) [facility] Start: 1962 Pneumococcal Vaccine : 65+ (1 of 2 - PCV) Pneumococcal Vaccine: 65+ (1 of 2 - PCV) [facility] Start: 1962 PNEUMOCOCCAL: 65+ (1 - PCV) PNEUMOCOCCAL: 65+ (1 - PCV) [facility] Start: 1961 COVID-19 VACCINE (#1) COVID-19 VACCI NE (#1) [facility] Start: 03-18-1957 COVID-19 Vaccine (#1) COVID-19 Vacci ne (#1) [facility] Start: 1956 ABDOMINAL AORTIC ANE URYSM SCREENING ABDOMINAL AORTIC ANEURYSM SCREENING [facility] Start: 1956 Abdominal aortic ane urysm screening Abdominal Aortic Aneurysm Screening [facility] Start: 1956 Hepatitis C screening Hepatitis C sc [facility] [place] Start: 1956 Tetanus vaccination TETANUS [facility] Start: 1956 Thyroid stimulating hormone measurement TSH [facility] CBC AND ELECTRONIC DIFF CBC AND ELECTRONIC DIFF Lab Routine Diffuse large B-cell lymphoma, unspecified body region Ordered: 01/28/2024 [facility] Work Phone: Comment on above: Ordered: 01/28/2024 CELLULAR THERAPY COLLECTION AND PROCESSING CELLULAR THERAPY COLLECTION AND PROCESSING Procedures Routine 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) Ordered: 03/02/2024 [facility] Work Phone: Comment on above: Ordered: 03/02/2024 End: 02-17-2025 ECG COMPLETE ECG COMPLETE ECG Routine 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) 1 Occurrences starting 02/18/2024 until 02/17/2025 [facility] Work Phone: Comment on above: 1 Occurrences starti ng 02/18/2024 until 02/17/2025 End: 05-19-2024 Echocardiography ECHO Cardiology Routine Non-Hodgkin lymphoma of lymph nodes of multiple regions, unspecified non-Hodgkin lymphoma type (HCC) DE DIOS (dyspnea on exertion) 1 Occurrences starting 05/19/2023 until 05/19/2024 [facility] Work Phone: Comment on above: 1 Occurrences starti ng 05/19/2023 until 05/19/2024 End: 02-17-2025 Echocardiography ECHO Cardiology Routine 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) Encounter for monitoring cardiotoxic drug therapy 1 Occurrences starting 02/18/2024 until 02/17/2025 [facility] Work Phone: Comment on above: 1 Occurrences starti ng 02/18/2024 until 02/17/2025 IR CENTRAL CATHETER PLACEMENT IR CENTRAL CATHETER PLACEMENT Radiology Routine 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) Ordered: 02/18/2024 [facility] Work Phone: Comment on above: Ordered: 02/18/2024 End: 10-01-2024 NM PET/CT SKULL-THIGH SUBSEQUENT NM PET/CT SKULL-THIGH SUBSEQUENT Radiology Routine 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) 1 Occurrences starting 09/02/2023 until 10/01/2024 [facility] Work Phone: Comment on above: 1 Occurrences starti ng 09/02/2023 until 10/01/2024 OUTSIDE SURG PATH SL REMI REVIEW OUTSIDE SURG PATH SLIDE REVIEW Lab Routine Non-Hodgkin lymphoma of lymph nodes of multiple regions, unspecified non-Hodgkin lymphoma type (HCC) Ordered: 12/22/2023 [facility] Work Phone: Comment on above: Ordered: 12/22/2023 End: 03-19-2025 PET+CT Guidance for localization of tumor of Skull base to mid-thigh-- W [id number] IV NM PET/CT SKULL-THIGH SUBSEQUENT Radiology Routine Diffuse large B-cell lymphoma, unspecified body region (HCC) 1 Occurrences starting 02/18/2024 until 03/19/2025 [facility] Work Phone: Comment on above: 1 Occurrences starti ng 02/18/2024 until 03/19/2025 End: 03-19-2025 XR Chest PA and Lateral XR CHEST 2V FRONTAL/LAT Radiology Routine 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) 1 Occurrences starting 02/18/2024 until 03/19/2025 [facility] Work Phone: Comment on above: 1 Occurrences starti ng 02/18/2024 until 03/19/2025 [facility] Immunizations Immunization Date Immunization Notes Care Provider Fa le NEGATED: Highlighted row has not occurred!12-09-2023 influenza virus vaccine, unspecified formulation [facility] Payers Date Payer Category Payer Medicare [id number] 2021 Medicare [id number] 2021 Private Health Insurance CLI [id number] 2021 Private Health Insurance [employer] A ETNA MEDICARE SUPPLEMENT [id number] 2021-Present [phone] [address] [address] [place] [address] Indemnity [id number] 2021 Unknown GENERIC PAYOR ME DICARE SUPPLEMENT [id number] 2021-Present [address] [address] [place] [address] [id number] 2017 Private Health Insurance [facility] xxxxxxxxx 2017-Present [phone] [address] [place] [address] xxxxxxxxx [id number] 2017 Private Health Insurance [facility] PLU [id number] 2017-Present [phone] [address] [place] [address] [id number] 2017 Private Health Insurance [facility] PLU [id number] 2017-Present [phone] [address] [place] [address] [id number] 1956 Unknown [id number] 1956 Unknown [id number] [id number] 1956 Unknown [id number] [id number] 1956 Unknown [id number] [id number] 1956 Unknown [id number] [id number] 1956 Unknown [id number] [id number] 1956 Unknown [id number] [id number] 1956 Unknown [id number] [id number] 1956 Unknown [id number] [id number] 1956 Unknown [id number] [id number] Social History Date Type Detail Facility Start: 02-24-2019 End: 12-30-2023 Tobacco smoking status [facility] Former smoker [facility] Start: 11-03-1995 End: 11-03-2009 History of tobacco use Current smoker [place], [place] Start: 11-03-1995 End: 11-03-2009 History of tobacco use Cigarette Smoker [place] Start: 02-24-2019 End: 04-17-2022 Alcohol intake Not Asked [place], [place] Start: 1955 Sex Assigned At Not on file [facility] Exposure to SARS-CoV -2 (event) Unable to assess [facility] Start: 02-24-2019 End: 12-30-2023 Tobacco use and exposure Never used Netlist Tobacco smoking status Never [facility] Start: 05-13-2023 End: 01-05-2024 Sex Assigned At Male [employer] [facility] History of tobacco use Passive smoker [facility] Start: 05-13-2023 End: 02-02-2024 Alcohol intake Ex-drinker (finding) [facility] Start: 05-13-2023 End: 01-05-2024 History of Social function [facility] Start: 12-30-2023 End: 02-02-2024 Alcohol intake Current drinker of alcohol (finding) [facility] Start: 12-30-2023 Alcohol Comment beer occ [facility] Medical Equipment Procedure Code Equipment Code Equipment Origin al Text Equipment Identifier Dates -05/28/2023 [id number] Start: 05-28-2023 Comment on above: Description: Placed @ [facility] Functional Status Date Assessment Result Facility 04-29-2023 Functional Status N/A [facility] [place] Clinical Notes 02-02-2023 to 03-10-2024 Telephone Encounter - Noah Altman RN - 03/10/2024 4:17 PM EDTTelephone Encounter - Noah Altman RN - 03/10/2024 4:17 PM EDTNoah Altman RN - 03/09/2024 1:55 PM EDT Note Date & Type Note Facility 03-10-2024 Telephone encounter Note [facility] PHONE FOLLOW UP - LINE PULL PATIENT NAME: Katia Shaikh Temporary central line was removed yesterday. Patient called unit today per instructions. No problems overnight reported by patient. Pressure dressing changed to simple bandage today. No increase in pain, no bleeding, no redness, drainage or swelling noted at site. No breathing changes noted per patient. Patient instructed to gradually increase activity, including moving neck, and report to us any concerns, or other abnormalities. Patient reminded to avoid heavy exertion and getting area wet for one week. Continue to observe site daily for redness, drainage, swelling or pain during this time. Patient instructed to call us back if there are any concerns or questions, or go to the nearest emergency facility. Signed by: Noah Altman RN March 10, 2024 4:18 PM [facility] Work Phone: 03-10-2024 Miscellaneous Notes [facility] PHONE FOLLOW UP - LINE PULL PATIENT NAME: Katia Shaikh Temporary central line was removed yesterday. Patient called unit today per instructions. No problems overnight reported by patient. Pressure dressing changed to simple bandage today. No increase in pain, no bleeding, no redness, drainage or swelling noted at site. No breathing changes noted per patient. Patient instructed to gradually increase activity, including moving neck, and report to us any concerns, or other abnormalities. Patient reminded to avoid heavy exertion and getting area wet for one week. Continue to observe site daily for redness, drainage, swelling or pain during this time. Patient instructed to call us back if there are any concerns or questions, or go to the nearest emergency facility. Signed by: Noah Almtan RN March 10, 2024 4:18 PM documented in this encounter [facility] 03-09-2024 Note [facility] 03-09-2024 History of Present illness Narrative [facility] CENTRAL LINE REMOVAL SERVICE DATE: 03/09/2024 SERVICE TIME: 13:23 Diagnosis: DLBCL Apheresis treatments completed. Will remove central line. Patient placed in Trendelenburg position. Temporary right IJ line discontinued per order. Catheter site clean, dry, no redness, and without drainage Pressure applied to site for 5 minutes. Bleeding stopped. Pressure dressing applied to site. Patient monitored for 30 minutes after pressure dressing applied. Pressure dressing dry and intact. VS at discharge: temp 98.2 F oral, pulse 81, BP 134/80. Patient discharged ambulatory and accompanied by family in no distress. Instructions given to patient and/or family: Chest or neck line instructions to Outpatients: Observe site for bleeding, swelling, increased coughing, change in voice, shortness of breath, or increased pain. If bleeding occurs, apply pressure and seek immediate medical attention. Change to Band-Aid in am. Call tomorrow [phone] to report progress. Report any concerns and/or go to the emergency room. Do not get it wet for one week (such as taking showers or swimming), avoid heavy exertion (including weight training exercises) for same period. Ambulatory patient. SIGNATURE: Noah Altman RN PATIENT NAME: Katia Shaikh DATE: March 09, 2024 TIME: 1:55 PM PAGER/CONTACT #: [id number] [facility] MNC COLLECTION FOR IMMUNE EFFECTOR CELL THERAPY : 1955 Age:[age] year old Gender: male BP 120/77 Pulse 92 Temp 36.7 C (98.1 F) (Oral) Resp 18 Ht 180.1 cm (5' 10.91 ) Wt 82.1 kg (181 lb) BMI 25.31 kg/m Start Procedure Time: 09:19 Day: 1 Procedure: MNC Collection for IEC [facility] Vendor ID: [id number] Protocol: N/A Physician: Dr. Galdamez BMT Coordinator: Cherelle Marshall Diagnosis: Diffuse Large B cell Lymphoma Patient arrived: ambulatory from accompanied by Spouse Patient indentification confirmed by: Patient name Katia Shaikh, Date of - 1955. Medical and Behavioral History: No change from date IDM checked. Interval History: Has felt well. , No fever or chills. , No shortness of breath. , and No headaches Patient is outpatient. Collection performed at Apheresis Unit ([facility]). Collection bag identification label confirmed with patient and second staff member KEVIN. REVIEW OF SYSTEMS: fever none, no chills, breathing unlabored, no cough, no chest pains, no swelling in hands, no ankle swelling, appetite good, general energy good , urine output Good PHYSICAL EXAM: Patient alert and oriented in all spheres and ambulates without problems Catheter site: dressing Intact, Clean, and Dry. Catheter site No swelling, tenderness, redness, or drainage. Catheter none tunnel non tender. Lungs clear to auscultation, Respirations normal, on oxygen supplement - no oxygen Heart Regular rate and rhythm, no murmur, clicks or rubs Peripheral edema: none in hands or feet Using standard [facility] policy, labs drawn at 09:15. CBC with diff, CMP, LD, and MG, uric acid, Bilirubin Conjugated, phosphorus Inorganic and Magnesium from blue port , without difficulty, drawn by Noah Altman RN . BMT coordinator Cherelle Marshall saw patient in the apheresis unit. Satisfactory venous access obtained from red port , return line obtained from blue port according to [facility] policy. Right chest mediport accessed in IR. Positive for blood return. Flushed port with 20 ml NSS and locked with 5 ml Heparin 100 unit/ml. Sorensen needle removed without incident. Site without bleeding. Covered site with opsite band aide. Medications: (also see MAR audit report) ACD-A 1364 ml for anticoagulation during collection NSS lot # [id number] NSS expiration ACD lot # [id number] ACD expiration Apr 27 Machine Information Machine Optia # 6 cMNC Machine Clean vv Alarm Check vv Kit lot # [id number] Kit expiration 2025-11-03 Anticoagulant Connection Adapter Lot # [id number] Anticoagulant Connection Adapter Expiration Date 2025-08-03 Blood warmer # 6 Blood warmer tubing lot# [id number] Blood warmer tubing expiration 2025-06-04 Blood warmer temperature: 40.8 C Patient's Total Blood Volume 5309 ml Processed: 2.8 blood volumes = 23357 ml Collected 208 ml product. AC Ratio: 12:1 AC in Product: 26 Product labeled per protocol. Product picked up by : Food Safety Manager Upon completion: Temp 98.2 F oral, Pulse 93, BP 124/73, Resp 18/min Red and Blue port caps changed. Flushed Red with 10 ml NSS and White with 10 ml NSS. Dressing N/A, central line remove after the procedure. Procedure tolerated well. Patient discharged ambulatory. Patient collection completed Procedure end time: 13:01 Noah Altman RN [facility] ROSENDO NOTE OF PERSONAL INVOLVEMENT IN CARE I reviewed the patients labs, medications and allergies prior to proceeding with this therapeutic treatment and discussed the case and parameters with the apheresis nurse. I have reviewed this therapeutic progress note documented by the apheresis nurse. I personally participated in all pertinent aspects and ferguson components of the therapeutic treatment. I was present during ferguson portions of the treatment and immediately available during the entire procedure. Katia Shaikh tolerated the procedure well. Faisal Blanco PA-C 03/09/24 Pager: [phone] documented in this encounter [facility] 03-09-2024 Note [facility] 03-09-2024 Note [facility] 03-09-2024 Nurse Note AMBULATORY PATIENT EDUCATION NOTE READINESS TO LEARN COGNITIVE ABILITY: Alert and oriented MOTIVATION TO LEARN: Interested FAMILY SUPPORT: High - Very involved in pt care INSTRUCTION PROVIDED TO: Patient and family member PATIENT LEARNS BEST BY: Individual Instruction Verbal Instruction FACTORS AFFECTING LEARNING: None PHYSICAL LIMITATIONS AFFECTING LEARNING: None LEARNING RESPONSE DIAGNOSIS: DLBCL EDUCATION TOPIC/ TEACHING POINTS: Procedure / Surgery: Pre-op Teaching: Logistics / Protocols / Complication Prevention METHOD OF INSTRUCTION: Individual instruction Verbal instruction PATIENT / FAMILY RESPONSE: Verbalizes understanding of: MNC FOLLOW-UP PLAN: Complete - No need for follow-up SUPPLEMENTAL MATERIAL: NA REFERRAL (RECOMMENDATION): NA Electronically Signed By Noah Altman RN in Department: HEMATOLOGY/ONCOLOGY [facility] 03-09-2024 Nurse Note AMBULATORY PATIENT EDUCATION NOTE READINESS TO LEARN COGNITIVE ABILITY: Alert and oriented MOTIVATION TO LEARN: Interested FAMILY SUPPORT: High - Very involved in pt care INSTRUCTION PROVIDED TO: Patient and family member PATIENT LEARNS BEST BY: Individual Instruction Verbal Instruction FACTORS AFFECTING LEARNING: None PHYSICAL LIMITATIONS AFFECTING LEARNING: None LEARNING RESPONSE DIAGNOSIS: DLBCL EDUCATION TOPIC/ TEACHING POINTS: Procedure / Surgery: Pre-op Teaching: Logistics / Protocols / Complication Prevention METHOD OF INSTRUCTION: Individual instruction Verbal instruction PATIENT / FAMILY RESPONSE: Verbalizes understanding of: MNC FOLLOW-UP PLAN: Complete - No need for follow-up SUPPLEMENTAL MATERIAL: NA REFERRAL (RECOMMENDATION): NA Electronically Signed By Noah Altman RN in Department: HEMATOLOGY/ONCOLOGY documented in this encounter [facility] 03-09-2024 Note HNO ID: [id number] Author: RAVEN OBREGON, RN Service: Interventional Radiology Author Type: Registered Nurse Type: Nursing Progress Note Filed: 03/09/2024 08:46 Note Text: Pt sent to [facility] with Port accessed in case they will need to use port. [facility] 03-09-2024 History of Present illness Narrative Images from the original note were not included. 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 At time of diagnosis he had a lot of SOB given location of the disease. He was treated with six cycles of CHOP (+/- rituximab, OS records mention R but he does not recall this) followed by radiation to his chest. He did well with therapy and achieved a complete remission. March 2023: Noticed lump on his leg prompting evaluation which led to biopsy and imaging. This was an incisional biopsy. The pathology was read as DLBCL at [facility]. Apr 2023: PET/CT with FDG avid lymphadenopathy above and below the diaphragm with bulky disease in abdomen and pelvis. May 2023: Came to [facility] for consultation. [facility] read this biopsy as FL, grade 3A. Given prior anthracycline and [facility] reading FL the tumor board consensus was to proceed with BR x 6 cycles. Sep 2023: PET showed most of the previously present hypermetabolic lymphadenopathy is regressed/resolved however residual hypermetabolic right inguinal lymph node Oct 2023: Completed chemotherapy. Nov 2023: EOT PET/CT with resolution most lymphadenopathy with exception of right inguinal LN which was larger from previous and higher SUV max (now up to 28.5). Dec 2023: Excisional LN biopsy with DLBCL INTERVAL HISTORY: Katia Shaikh and his return for pre-CAR T cell therapy visit. He is feeling fine. No fevers, drenching night sweats, unintentional weight loss. Appetite is fine. Activity level is good. No fatigue. Only symptoms in increasing right inguinal lymphadenopathy. 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 PHYSICAL EXAM: VS: BP 130/76 Pulse 91 Temp 36.4 C (97.5 F) (Temporal) Resp 20 Ht 177.2 cm (5' 9.76 ) Wt 82.3 kg (181 lb 7 oz) SpO2 97% BMI 26.21 kg/m ECO- Fully active, able to carry on all pre-disease performance w/o restriction. Karnofsky Performance Status Scale: 100 - Normal, no complaints, no evidence of disease GENERAL: Awake, alert, no acute distress PYSCH: Alert and oriented. HEENT: EOMI. Anicteric sclerae. PERRL. Moist mucous membranes without lesions. Neck supple. LYMPH NODES: There is no cervical, axillary, supraclavicular lymphadenopathy. Right inguinal incision with lymphadenopathy below. HEART: Regular rate and rhythm, no murmurs, rubs, or gallops. LUNGS: Clear to auscultation bilaterally, no wheezes or crackles. ABDOMEN: +BS, Soft, nondistended, nontender. No hepatosplenomegaly MSK: Grossly intact ROM. EXTREMITIES: No edema NEURO: CN II-XII grossly intact, normal gait. SKIN: No rashes or other lesions. DATA REVIEWED: CBC Diff WBC (k/uL) Date Value 03/09/2024 7.43 RBC (m/uL) Date Value 03/09/2024 4.30 Hemoglobin (g/dL) Date Value 03/09/2024 13.2 Hematocrit (%) Date Value 03/09/2024 38.7 (L) MCV (fL) Date Value 03/09/2024 90.0 MCH (pg) Date Value 03/09/2024 30.7 MCHC (g/dL) Date Value 03/09/2024 34.1 RDW-CV (%) Date Value 03/09/2024 13.0 Platelet Count (k/uL) Date Value 03/09/2024 219 MPV (fL) Date Value 03/09/2024 9.9 Neutrophils % (%) Date Value 03/09/2024 72.1 Lymphocytes % (%) Date Value 03/09/2024 7.3 Monocytes % (%) Date Value 03/09/2024 14.3 Eosinophils % (%) Date Value 03/09/2024 5.1 Basophils % (%) Date Value 03/09/2024 0.9 Abs Neut (k/uL) Date Value 03/09/2024 5.36 Abs [place] (k/uL) Date Value 03/09/2024 1.06 (H) Abs Eosin (k/uL) Date Value 03/09/2024 0.38 Abs Baso (k/uL) Date Value 03/09/2024 0.07 CMP Glucose (mg/dL) Date Value 03/09/2024 105 (H) BUN (mg/dL) Date Value 03/09/2024 15 Creatinine (mg/dL) Date Value 03/09/2024 0.98 Sodium (mmol/L) Date Value 03/09/2024 140 Potassium (mmol/L) Date Value 03/09/2024 4.3 Chloride (mmol/L) Date Value 03/09/2024 103 CO2 (mmol/L) Date Value 03/09/2024 24 Protein, Total (g/dL) Date Value 03/09/2024 7.3 Albumin (g/dL) Date Value 03/09/2024 4.1 Calcium, Total (mg/dL) Date Value 03/09/2024 9.4 Alkaline Phosphatase (U/L) Date Value 03/09/2024 252 (H) Bilirubin, Total (mg/dL) Date Value 03/09/2024 0.2 AST (U/L) Date Value 03/09/2024 19 ALT (U/L) Date Value 03/09/2024 20 LDH LD Date Value Ref Range Status 03/08/2024 228 (H) 135 - 225 U/L Final PET/CT Skull-Thigh 01/30/2024 IMPRESSION: HEAD/NECK: * No FDG avid neoplastic process. CHEST: * New mildly FDG avid 6 mm left upper lobe pulmonary nodule, indeterminate for infectious/inflammatory etiology versus malignancy/lymphomatous involvement. Short-term follow-up with noncontrast chest CT in 3 months is recommended to evaluate for stability/resolution. * Mild bilateral hilar uptake is similar to prior, with activity that is slightly above mediastinal blood pool, likely benign/reactive. Continued close attention on follow-up recommended. ABDOMEN/PELVIS: * Numerous new intensely FDG avid right medial thigh, right inguinal, right external iliac and right pelvic nodes, compatible with lymphomatous involvement. * There is a 5 cm probable postoperative seroma or lymphocele in the region of right inguinal cynthia excision. * Mild, asymmetric activity in the left posterior peripheral zone of the prostate gland. This is nonspecific and may represent variant parenchymal uptake. However, malignancy is not excluded and correlation with PSA level is recommended MUSCULOSKELETAL: * No FDG avid neoplastic process. Deauville Score: 5 ASSESSMENT AND PLAN: Katia Shaikh is a 68 year old man who presents for pre-CAR T-cell visit. His history is detailed above. Briefly, he was diagnosed with DLBCL arising from FL in 2001 and was treated with CHOP (+/-R) and XRT. He developed diffuse/bulky lymphadenopathy last year and incisional biopsy was read as DLBCL at [facility] but when reviewed by [facility] including the hematopathology consensus conference, it was read as FL, grade 3A. His case was presented at Tumor Board and given prior anthracycline and FL read the recommendation was BR x 6 cycles. His EOT PET/CT in November showed resolution of lymphadenopathy with the exception of the right inguinal LN which was 4.3 x 3.5 and increased from his interim PET/CT. Excisional LN biopsy shows DLBCL (both locally and here). Katia Shaikh presents today for evaluation of the plan to proceed with autologous chimeric antigen receptor (CAR) T- cell infusion therapy. Katia Shaikh has been informed of the risks, benefits, alternatives, personnel, and the procedures involved in CAR T-cell therapy. He has no contraindications to central venous catheter placement for use in mononuclear cell (MNC) harvest via apheresis via apheresis. His childbearing potential was assessed; he is male. Patient is suitable to proceed with MNC harvest and has agreed to proceed. Patient has signed consents for mononucleated cell collection by leukapheresis, CAR T-cell therapy, including lymphodepleting chemotherapy and infusion of CAR T-cell product, and transfusion of blood products. We also reviewed plan for bridging therapy given increasing inguinal lymphadenopathy and better outcomes for CAR T with decreased tumor volume. He has disease localized to right inguinal/pelvic nodes so will ask if Dr. Varela who he has seen can do palliative radiation as bridging while we await CAR T-cell manufacturing. He voiced agreement with that plan. Niesha Galdamez MD Associate Staff Physician [facility] [address] [place] [address] Pager: [phone] documented in this encounter [facility] 03-08-2024 Nurse Note Additional intake questions: Has the patient had fever, nausea, vomiting, diarrhea, constipation, fatigue for > 1 week? No Does the patient have a decreased appetite? No Does patient want to see a Mathematics Professor? No (yes to any of above refer patient to schedulers for dietitian appointment) ) Does patient have any new or increased numbness or tingling of extremities? No Is patient interested in fertility information? No Does patient need any prescription refills? No Does patient have an advanced directive in place? No, Patient referred to [facility] Electronically Signed By: Jill Broussard LPN [facility] 03-08-2024 Nurse Note Additional intake questions: Has the patient had fever, nausea, vomiting, diarrhea, constipation, fatigue for > 1 week? No Does the patient have a decreased appetite? No Does patient want to see a Mathematics Professor? No (yes to any of above refer patient to schedulers for dietitian appointment) ) Does patient have any new or increased numbness or tingling of extremities? No Is patient interested in fertility information? No Does patient need any prescription refills? No Does patient have an advanced directive in place? No, Patient referred to [facility] Electronically Signed By: Jill Broussard LPN documented in this encounter [facility] 03-02-2024 Telephone encounter Note Patient is scheduled , 03/25 at 12:15pm for his PET scan in [place]. Fiona Adams [facility] 03-02-2024 Miscellaneous Notes Patient is scheduled , 03/25 at 12:15pm for his PET scan in [place]. Fiona Adams documented in this encounter [facility] 02-26-2024 Telephone encounter Note 1st time treatment report. Patient is active with Medicare A and B, LOC 80%, $240 deductible has $0 remaining with no OOP max. Patient has A[employer]na Medicare SUPPLEMENT as a secondary to miner pick all 20% Medicare coins. Patient financial responsibility is $0 for each treatment in 2023.Called the patient to discuss navigator services, Cost Facit Questionnaire completed over the phone. Dx: Diffuse large B cell lymphoma C83.38 // DxDate: 02/18/2024 // Physician: Niesha Galdamez MD [id number]. [facility] Work Phone: 02-26-2024 Miscellaneous Notes 1st time treatment report. Patient is active with Medicare A and B, LOC 80%, $240 deductible has $0 remaining with no OOP max. Patient has [employer]na Medicare SUPPLEMENT as a secondary to miner pick all 20% Medicare coins. Patient financial responsibility is $0 for each treatment in 2023.Called the patient to discuss navigator services, Cost Facit Questionnaire completed over the phone. Dx: Diffuse large B cell lymphoma C83.38 // DxDate: 02/18/2024 // Physician: Niesha Galdamez MD [id number]. documented in this encounter [facility] 02-25-2024 Telephone encounter Note SOCIAL WORK FOLLOW UP NOTE: [facility] Date of service: 02/25/24 Katia Shaikh is being seen for a follow up social work visit. Today's visit includes: spouse TOPICS ADDRESSED: coping/support PLAN: Communicate pertinent medical/psychosocial information to Cancer Center team, Continue follow up as needed , and Provide emotional support to patient/family F/U APPOINTMENT: PRN Assigned GIL listed in Care Team tab: Yes SW received phone call from Roverto's , Jennifer, today. She reported they have several questions regarding upcoming appointments and post-transplant medications. SW reached out to [facility] for additional assistance. Jennifer reported they have been concerned about the financial stress of travel and lodging expenses. SW made a referral to the [facility] financial navigators for assistance with LLS grants. She reported her and Roverto have been feeling frustrated and overwhelmed with upcoming medical appointments. SW provided validation and emotional support. SW to follow. FREDA Cottrell [facility] Work Phone: 02-25-2024 Miscellaneous Notes SOCIAL WORK FOLLOW UP NOTE: [facility] Date of service: 02/25/24 Katia Shaikh is being seen for a follow up social work visit. Today's visit includes: spouse TOPICS ADDRESSED: coping/support PLAN: Communicate pertinent medical/psychosocial information to Cancer Center team, Continue follow up as needed , and Provide emotional support to patient/family F/U APPOINTMENT: PRN Assigned GIL listed in Care Team tab: Yes SW received phone call from Roverto's , Jennifer, today. She reported they have several questions regarding upcoming appointments and post-transplant medications. SW reached out to [facility] for additional assistance. Jennifer reported they have been concerned about the financial stress of travel and lodging expenses. SW made a referral to the [facility] financial navigators for assistance with LLS grants. She reported her and Roverto have been feeling frustrated and overwhelmed with upcoming medical appointments. SW provided validation and emotional support. SW to follow. FREDA Cottrell documented in this encounter [facility] 02-24-2024 Note [facility] 02-24-2024 Note [facility] 02-24-2024 History of Present illness Narrative PSYCHOSOCIAL ASSESSMENT BLOOD AND MARROW TRANSPLANT PROGRAM DATE OF ASSESSMENT:02/25/24 Psychosocial Assessment of Candidates for Transplantation (PACT) Score: 3 - good transplant candidate DATA: Katia Shaikh is a 68 year old male who is planning on undergoing an Chimeric Antigen Receptor (CAR) T-cell therapy. His oncologist at [facility] is Dr. Galdamez. Katia Shaikh was diagnosed with DLBCL in 2001. And had a recurrence in March 2023. In addition the patient has a past medical history of PAST MEDICAL HISTORY Diagnosis Date Diffuse large B cell lymphoma (HCC) 05/2023 Follicular lymphoma (HCC) GERD (gastroesophageal reflux disease) History of chemotherapy 2001 Diffuse large B cell Lymphoma History of radiation therapy 2001 Diffuse large B cell lymphoma History of thoracentesis Hypothyroidism . HOME ENVIRONMENT: Katia Shaikh resides at [address] [place] [address] with his , Jennifer (about an hour and 15 minutes from [facility]). Katia Shaikh has access to a first floor setup. Katia Shaikh is independent with ADL's and IADL's. Katia Shaikh does not use DME at home. FAMILY COMPOSITION: he is to Jennifer . They have been together for 44 years and they are supportive. he has 2 children, and they are as follows: 2 sons that live near their home. Their coping is described as supportive. Katia Shaikh reported his parents are . He does not have siblings. Katia Shaikh's significant other's family is described as supportive. She has a brother and sister that live near their home. Her mother is 88 y/o and lives independently at home. Jennifer's brother also helps with their mother's care. OTHER SOURCES OF SUPPORT: Other sources of support include friends. Spirituality is not identified as a source of support; he does not affiliate with a confucianism. 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 It was explained that the average Chimeric Antigen Receptor (CAR) T-cell therapy patient is disabled 3 months. Jennifer is retired and worked in a hospital as an x-ray tech for 23 years. MENTAL HEALTH HISTORY: Katia Shaikh states that he has no current or history of mental health needs or treatment. Katia Shaikh has no history of suicidal ideation, intent and/or plan. Katia Shaikh has no no history of abuse and/or trauma. SUBSTANCE USE: Tobacco use: no Vaping: no Alcohol use: socially, about 1 drink per month Marijuana use: no Recreational drug use: no COPING: He relies on support from family/friends to cope with cancer related challenges. Katia Shaikh has not had experience with hair loss during previous treatments. He expresses concerns regarding probable hair loss with upcoming treatment: no . HOSPITAL STAY: Discussed the importance of staying physically active while hospitalized. He plans to walk and use the exercise room during his hospital stay. He plans to bring his own clothing. Discussed patient support services (art and music therapy, spiritual care), patient and family lounge, exercise room, laundry facilities, nutrition support area, etc. CAREPARTNER/DISCHARGE PLAN: Discussed caregiving needs post discharge at length. Katia Shaikh plans on his , Jennifer, being the primary twenty-four hour carepartner post discharge. His sons are also helping with transportation to appointments. Katia Shaikh will stay at a motel post discharge. Katia Shaikh care-partner will assist with transportation to medical appointments. Reviewed care-partner role and responsibilities at length. Addressed questions and concerns, care-partner and Katia Shaikh expressed understanding and agreement. INSURANCE/FINANCIAL: Katia Shaikh's health insurance is Medicare and Medicare Railroad. He has a pharmacy benefit and has affordable co-pays. Katia Shaikh is not registered with [employer] Co-Pay Assistance Program. He has not received additional [facility] grants. He will not be referred to the [facility] Financial Navigators for enrollment. Katia Shaikh does not express financial concerns. He was provided with information about discounted parking at [facility]. He does not qualify for parking assistance and was referred to the [facility] Patient Service Plumber for assistance. INTERESTS: Katia Shaikh enjoys car racing with his son and riding his motorcycle. ADVANCE CARE PLANNING: Katia Shaikh states that he does not have a living will; Provided education on their right to complete AD documents. . he does not have a power of practice management consultant for health care; Provided education on their right to complete AD documents. Roverto's , Jennifer, is his health care surrogate decision maker. QUALITY OF LIFE/PSYCHOSOCIAL PROTOCOL: The Quality of Life/Psychosocial Protocol was explained to the patient; questions and concerns were addressed. The patient declined to participate. CLINICAL ASSESSMENT: I had the pleasure of meeting with patient Roverto Shaikh today for their pre-transplant psychosocial assessment. Katia Shaikh is planning on having CAR T-cell infusion. He presented to this interview with his , Jennifer. He does not have mental health or substance abuse concerns that may negatively impact his ability to cope with demands of treatment. Katia Shaikh seems open, verbal and able to express thought and feelings around coping with disease and treatment, to be proactive in problem-solving, to have very strong family support, and to have an adequate care giving plan. Roverto reported he is feeling scared about CAR T-cell infusion but thinks it will be the best treatment option. Jennifer reported she has been doing research and talking to friends for support. RECOMMENDATIONS/PLAN: Will remain available for ongoing assessment of needs and supportive interventions. Provided education about the BMT social work role throughout the transplant process. Also provided education about the inpatient unit and team. Assisted with advance directive completion as necessary. Assigned SW listed in Care Team tab: Yes FREDA Cottrell documented in this encounter [facility] 02-24-2024 History of Present illness Narrative CAR T-cell Therapy Met with patient and his family for education on CAR T - Cell Infusion. Patient Wallet Card given to patient along with instructions for use. Reviewed pre CAR T - Cell evaluation and screening tests. Patient agreed to HIV testing. Female fertile? No Received blood products? No Blood product reactions? No HTN? No Any type of line? Yes, type: Port Anticoagulations? No Reinforced with patient and family the preparative regimen (conditioning therapy consisting of fludarabine and cytoxan) and CAR T-cell infusion in detail. All questions answered. Possible side effects of CAR T - Cell therapy explained to patient and family. Reinforced side effects of CAR T - Cell including but not exclusive to; fever, chills, difficulty breathing, confusion, dizziness, irregular heartbeat, low blood counts, nausea, vomiting, diarrhea, fatigue, weakness, difficulty speaking, anemia, appetite changes, bowel habit changes, electrolyte disturbances, headache, hypersensitivity reaction, infection, loss of fertility, myalgia, neutropenia, taste changes, thrombocytopenia. Discussed possible CRS and Neurologic side effects along with treatment in detail. The need for blood and/or platelet transfusions was explained, along with the transfusion process. Explained post discharge requirements including follow up appointment at [facility] within 5 business days of discharge, physician appointment at 1 month, 2 months and 100 days post discharge. Also explained the possibility that the patient would need to follow in [place] more often if necessary. Reinforced that it is required to have a 24/7 caregiver for 4 weeks post infusion, that driving or operating heavy machinery for 8 weeks post infusion is prohibited, and that they must stay within 2 hours of [facility] for 4 weeks post infusion. Reviewed allergies and medications and updated Epic. Patient instructed to bring soft bristle tooth brush, fluoride tooth paste, sneakers, comfortable clothes, and list of current medications to the hospital. Patient instructed not to bring home medications to the hospital. Discussed phone number lists and call procedures for after hours and holidays. All questions answered and patient verbalized understanding of all of the above instructions. ONCOLOGY PATIENT EDUCATION NOTE TOPIC: CAR-T, Medications: YESCARTA READINESS TO LEARN: COGNITIVE ABILITY: Alert and oriented MOTIVATION TO LEARN: Interested FAMILY SUPPORT: High - Very involved in pt care INSTRUCTION PROVIDED TO: Patient and Spouse INSTRUCTION PROVIDED BY: Nurse Coordinator PATIENT LEARNS BEST BY: Multiple Methods FACTORS AFFECTING LEARNING: None PHYSICAL LIMITATIONS AFFECTING LEARNING: None LEARNING RESPONSE DIAGNOSIS: DLBCL METHOD OF INSTRUCTION: Written instruction - handouts Verbal instruction PATIENT/FAMILY RESPONSE: Verbalizes understanding of: CHEMOTHERAPY-Regimen, toxicity and side effects INFECTION MANAGEMENT-Signs and symptoms of an infection and importance of contacting the physician MEDICATION PRESCRIBED-Accurate knowledge of prescribed medication prior to discharge MEDICATION ROUTE-Correct route for administration of the prescribed medication MEDICATION SIDE EFFECTS-Side effects associated with the medication that warrant a call to the physician PHYSICAL RESTRICTIONS-Physical restrictions and recommendations after discharge from the hospital SYMPTOM MANAGEMENT-Correct actions to take to manage symptoms associated with his/her disease/illness WORSENING CONDITION-Signs and symptoms of a worsening condition that warrant a call to the physician FOLLOW UP PLAN: Reinforce - Repeat previous content Contact information given. SUPPLEMENTAL MATERIAL: Written material was provided at this visit with the following information: - CAR-T education was provided by a pharmacist NO - Side effect management information was provided/discussed including but not limited to: anemia, appetite changes, bowel habit changes, electrolyte disturbances, fatigue, hair loss, hypersensitivity reaction, infection, mouth hygiene, mucositis, nausea/vomitting, neutropenia, skin changes, taste changes, thrombocytopenia, CRS and ICANS YES - Provided important phone numbers and contacts during and after hours. YES - Provided information on symptoms that require immediate assistance. YES - Provided CAR-T when to call handouts YES - Preventing infection. YES - Treatment schedule and confirmation of appointment times. YES - Available support groups. YES - The importance of contraception during the course of chemotherapy YES - Neutropenic fever protocol discussed with patient, which included the importance of reporting any fever of 100.4F (38.0C) or greater to the healthcare team as noted on the provided wallet card and/or magnet. YES Time Spent: 1 hour REFERRAL (RECOMMENDATION): Social Work Radha Peng RN documented in this encounter [facility] 02-23-2024 Note [facility] 02-23-2024 History of Present illness Narrative SOCIAL WORK PROGRESS NOTE Name: Katia Shaikh Pre-cell infusion assessment chart review. SW is scheduled to meet with Mr. Shaikh on 02/24/24 for an assessment for CAR T-Cell Therapy. GIL reviewed chart and prepared documentation for appointment. SW to follow. Signature: FREDA Cottrell Date: February 23, 2024 Time: 11:21 AM documented in this encounter [facility] 02-18-2024 Miscellaneous Notes SCHEDULED 03/31 Authorization number: Transplant Primary Insurance: Transplant Diagnosis: Diffuse large B-cell lymphoma, unspecified body region (HCC) [C83.30] DX Imaging: PET Scan: 01-30-24 Pathology: 05-23-23 Right inguinal lymph node, excisional biopsy: - Follicular lymphoma, grade 3A Clinical Notes Reviewed: 02-12-24 Hem Onc Date of last: Chemo therapy 2001 six cycles of CHOP, BR x 6 cycles Additional Information: four options 1) R-CEOP, 2) RICE and ASCT if chemosenstive or CAR T if not chemosensitive to RICE, 3) commercial CAR T now, 4) allogeneic CAR T at [facility]. He and his will consider options and get back to us. Initial/Subsequent: Subsequent Treatment Strategy: 62 PET Protocol: Top Of Ear To Proximal Thigh Diagnostic Imaging Requested: No Is this a Pretreatment and/or an initial Pet scan: No - Schedule as requested Comments for Manager Games: 03/31/24 ROUTE TO SCHEDULERS POOL P PET SHIP CLEANER MC or P NM SPECIAL STUDIES MC This form is used for MAIN CAMPUS APPOINTMENTS ONLY. Is this request for a Main [place] PET scan appointment? Yes: Rn Care Manager: Elena Foster Requesting Person (Paula Martins): [id number] Area Code + Phone/Pager: [phone] Who do we call to schedule this appointment? Requestor Requesting Staff [id number] Area Code + Phone/Pager: N/A PET Orders (A delay in scheduling will result if the orders are not present at time of review): Internal ADDITIONAL ACTION MAY BE REQUIRED IF PATIENTS OON INSURANCE OR SELF PAY COVERAGE HAS NOT BEEN CLEARED FOR REQUESTED APPOINTMENT. Scheduling: Specific date/time (Requests should be greater then 10 buisness days): 03/31/24 What account will this PET appointment be linked to? Transplant Type of PET: Oncology: Are there additional diagnostic CT scans required to be done at time of PET scan? No Is the request for a PET MR ? No What account will diagnostic testing appointment be linked to? Transplant Will the patient need anesthesia? NO Send requests to P COORD REVIEW documented in this encounter [facility] 02-18-2024 Instructions Radha Peng, RN - 02/18/2024 9:45 AM EDT PROTOCOL: CAR T Cell [employer]A RESEARCH: N/A ADMISSION DATE: 04/06/24 PHYSICIAN: Niesha Galdamez MD STAGING: Staging schedule at 02/23 EVALUATION / STAGING Date Time Nurse Appt (2 hours) Radha Peng RN 02/23 0900 Labs - Nurse draw CA 1 02/23 CRC (30 minutes) Raven 02/23 Financial Coord (1/2 hr) PFA Psychosocial Eval (SW) (1 1/2 hrs) Krystyna Hernandez 02/23 Advanced Practice Provider (1 hr) BMT ROSENDO EKG - see orders J1-02/23 Echo LVEF x [id number] 1 hr J1-02/23 CT scans - see orders Before LD chemo PET scan - skull to thigh - see orders Gb3 Before LD chemo CONSULTS Date Time Allergy (PCN allergy consult/testing 90 min) (penicillin or cephalosprin allergy) No PRE-BMT Date Time Labs CA 1 w/PreBMT PharmD 15 min prior to pre BMT Physician Niesha Galdamez MD 03/08 3:30pm - slot on hold Temporary Line Placement /[place]- state for CAR Tcells (need FIRST slot!!) 03/09 APHERESIS Date Time Apheresis (immediately after temp line placement) CA 2 03/09 LYMPHODEPLETING CHEMOTHERAPY Date Time PET/CT - needs to be 1 or 2 days before chemotherapy starts GB3 03/31 Labs CA1 w/Physician appt Physician Niesha Galdamez MD Just waiting for add on time. I will email you! Fludarabine/Cytoxan CA 2 04/01, 04/02, 04/03 Lupron (15 minutes) CA 2 ADMIT Date Time Admission Interview J1-1 04/06 documented in this encounter [facility] 02-18-2024 Miscellaneous Notes CAR T-cell Initial Telephone Contact Spoke with Katia Shaikh on the telephone on 02/18/2024 at 0915 regarding CAR T-Cell Therapy / [employer]. 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 Once resulted, all staging results and requested information will be sent to insurance company for approval. Reviewed generic calendar outlining the CAR-T process. Reviewed that prior to leukapheresis, patient will need to have a temporary catheter placed in Interventional Radiology. Discussed process of collecting/processing T cells, including 1 day of Apheresis, cells being sent to [facility] and engineered into CAR-T cells. Explained that engineering takes approximately 17 days. Notified patient that ,in rare instances, enough cells may not be able to manufacture a CAR T-cell product, and that potentially a second leukapheresis would be needed. Or the possibility that the patient would not be able to receive CAR-T cell therapy. Discussed 3 days of lymphodepleting conditioning outpatient chemotherapy consisting of Fludarabine and Cyclosphosphamide, and potential side effects. Notified that a double lumen PICC line needs to be inserted prior to admission to [facility], and that patient will receive the Car-T cell infusion the day on admission day. Discussed CRS (Cytokine Release Syndrome) and that it is very common with CAR-T infusions, occurring within minutes to hours, but generally appear within the first 3-7 days. Reviewed symptoms, including: flu like symptoms, low BP, fevers, sob, increased heart rate, and that symptoms may warrant transfer to ICU. Also discussed AYAD (CAR-T Cell Encephalopathy Syndrome), neurological symptoms that can develop later but can occur simultaneously with CRS. Symptoms include: Confusion, word finding, slurring words, sleepy, memory or balance issues, personality changes and seizures. Discussed how CRS and AYAD are managed. Aware that patient will be taking Keppra, an anti-seizure medication, beginning the day of CAR-T infusion and for at least 30 days to prevent seizures. Discussed follow up care, including an appointment with a BMT Provider within 5 days of discharge. Discussed that lab/treatment appointments will be scheduled based on patient s labs and symptoms. Informed patient that patient need to be with in 2 hours of [facility] for 4 weeks from infusion, with a 24/7 caregiver. Patient verbalized understanding that no driving or operating heavy machinery for 8 weeks is allowed because of the possibility of experiencing neurological symptoms. Informed patient that they will be given a Wallet Card, and explained that card must be shown if patients needs to be seen in any emergency room following infusion a CAR T-cell product. Patient expressed understanding. Aware to contact BMT for any questions or concerns. Contact information provided. Radha Peng RN Katia Terrazas Kaushik is calling Niesha Galdamez MD today regarding 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 - Other (Next Steps) Patient requesting call back to go over next steps and what to expect next. Requesting response back: [phone] (cell) Duration of symptoms: N/A Patient has been identified by name and birthdate. Pretty Jimenez February 18, 2024 documented in this encounter [facility] 02-12-2024 Note [facility] 02-12-2024 History of Present illness Narrative Images from the original note were not included. [facility] DEPARTMENT OF HEMATOLOGY AND MEDICAL ONCOLOGY DIAGNOSIS: B-cell NHL REASON FOR VISIT: Follow up DATE OF VISIT: February 12, 2024 HISTORY OF PRESENT ILLNESS: 2001: Diagnosed with stage III DLBCL arising from follicular lymphoma. At time of diagnosis he had a lot of SOB given location of the disease. He was treated with six cycles of CHOP (+/- rituximab, [facility] records mention R but he does not recall this) followed by radiation to his chest. He did well with therapy and achieved a complete remission. March 2023: Noticed lump on his leg prompting evaluation which led to biopsy and imaging. This was an incisional biopsy. The pathology was read as DLBCL at [facility]. Apr 2023: PET/CT with FDG avid lymphadenopathy above and below the diaphragm with bulky disease in abdomen and pelvis. May 2023: Came to [facility] for consultation. [facility] Path read this biopsy as FL, grade 3A. Given prior anthracycline and [facility] reading FL the tumor board consensus was to proceed with BR x 6 cycles. INTERVAL HISTORY: Katia Shaikh and his return for follow up given progression of disease. He reports doing physically well. No fevers, drenching night sweats, unintentional weight loss. Previous lymph node lump is still present but has not noticed anything new. Patient is concerned regarding CAR-T therapy due to the previous bendamustine treatment. 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 PHYSICAL EXAM: VS: BP 133/72 Pulse 75 Temp 36.6 C (97.9 F) (Temporal) Resp 18 Wt 84 kg (185 lb 3 oz) SpO2 99% BMI 26.57 kg/m ECO- Fully active, able to carry on all pre-disease performance w/o restriction. GENERAL: Awake, alert, no acute distress PYSCH: Alert and oriented. DATA REVIEWED: CBC Diff WBC (k/uL) Date Value 12/25/2023 5.59 RBC (m/uL) Date Value 12/25/2023 4.43 Hemoglobin (g/dL) Date Value 12/25/2023 14.1 Hematocrit (%) Date Value 12/25/2023 40.3 MCV (fL) Date Value 12/25/2023 91.0 MCH (pg) Date Value 12/25/2023 31.8 MCHC (g/dL) Date Value 12/25/2023 35.0 RDW-CV (%) Date Value 12/25/2023 13.3 Platelet Count (k/uL) Date Value 12/25/2023 216 MPV (fL) Date Value 12/25/2023 9.5 Neutrophils % (%) Date Value 12/25/2023 65.5 Lymphocytes % (%) Date Value 12/25/2023 10.9 Monocytes % (%) Date Value 12/25/2023 19.0 Eosinophils % (%) Date Value 12/25/2023 3.2 Basophils % (%) Date Value 12/25/2023 0.9 Abs Neut (k/uL) Date Value 12/25/2023 3.66 Abs [place] (k/uL) Date Value 12/25/2023 1.06 (H) Abs Eosin (k/uL) Date Value 12/25/2023 0.18 Abs Baso (k/uL) Date Value 12/25/2023 0.05 CMP Glucose (mg/dL) Date Value 12/25/2023 96 BUN (mg/dL) Date Value 12/25/2023 16 Creatinine (mg/dL) Date Value 12/25/2023 1.10 Sodium (mmol/L) Date Value 12/25/2023 136 Potassium (mmol/L) Date Value 12/25/2023 4.1 Chloride (mmol/L) Date Value 12/25/2023 101 CO2 (mmol/L) Date Value 12/25/2023 25 Protein, Total (g/dL) Date Value 12/25/2023 7.6 Albumin (g/dL) Date Value 12/25/2023 4.4 Calcium, Total (mg/dL) Date Value 12/25/2023 10.2 Alkaline Phosphatase (U/L) Date Value 12/25/2023 204 (H) Bilirubin, Total (mg/dL) Date Value 12/25/2023 0.3 AST (U/L) Date Value 12/25/2023 22 ALT (U/L) Date Value 12/25/2023 30 LDH LD Date Value Ref Range Status 12/25/2023 182 135 - 225 U/L Final PET/CT Skull-Thigh 01/30/2024 IMPRESSION: HEAD/NECK: * No FDG avid neoplastic process. CHEST: * New mildly FDG avid 6 mm left upper lobe pulmonary nodule, indeterminate for infectious/inflammatory etiology versus malignancy/lymphomatous involvement. Short-term follow-up with noncontrast chest CT in 3 months is recommended to evaluate for stability/resolution. * Mild bilateral hilar uptake is similar to prior, with activity that is slightly above mediastinal blood pool, likely benign/reactive. Continued close attention on follow-up recommended. ABDOMEN/PELVIS: * Numerous new intensely FDG avid right medial thigh, right inguinal, right external iliac and right pelvic nodes, compatible with lymphomatous involvement. * There is a 5 cm probable postoperative seroma or lymphocele in the region of right inguinal cynthia excision. * Mild, asymmetric activity in the left posterior peripheral zone of the prostate gland. This is nonspecific and may represent variant parenchymal uptake. However, malignancy is not excluded and correlation with PSA level is recommended MUSCULOSKELETAL: * No FDG avid neoplastic process. Deauville Score: 5 * Score 1: No uptake above the background * Score 2: Uptake equal to or below mediastinum * Score 3: Uptake above mediastinum but equal to or below liver * Score 4: Uptake slightly to moderately above liver * Score 5: Uptake markedly above liver or a new site of disease * Score X: New area(s) of uptake unlikely to be related to lymphoma ASSESSMENT AND PLAN: Katia Shaikh is a 68 year old man who presents for follow up given recent progression. His history is detailed above. Briefly, he was diagnosed with DLBCL arising from FL in 2001 and was treated with CHOP (+/-R) and XRT. He developed diffuse/bulky lymphadenopathy last year and incisional biopsy was read as DLBCL at [facility] but when reviewed by [facility] including the hematopathology consensus conference, it was read as FL, grade 3A. His case was presented at Tumor Board and given prior anthracycline and FL read the recommendation was BR x 6 cycles. His EOT PET/CT in November showed resolution of lymphadenopathy with the exception of the right inguinal LN which was 4.3 x 3.5 and increased from his interim PET/CT. Excisional LN biopsy shows DLBCL (both locally and here). New PET/CT shows progressive disease. I have discussed options and he has also gone to [facility] for a second opinion. Their concern with CAR T-cell therapy now is bendamustine which I agree is a concern. They also discussed salvage RICE and ASCT if he responds to RIce and an allogeneic CAR T product in which case the prior bendamustine would not matter. He also asked me about just standard DLBCL treatment and I explained would not give R-CHOP because prior anthracycline but R-CEOP would be the alternative to that. So in review we discussed four options 1) R-CEOP, 2) RICE and ASCT if chemosenstive or CAR T if not chemosensitive to RICE, 3) commercial CAR T now, 4) allogeneic CAR T at [facility]. He and his will consider options and get back to us. By signing my name below, I, Ben Hidalgo, attest that this documentation has been prepared under the direction and in the presence of Dr. Galdamez Electronically signed, Steven Thurston February 12, 2024 11:29 AM Niesha Junior MD, personally performed the services described in this documentation. All medical record entries made by the scribe were at my direction and in my presence. I have reviewed the chart and agree that the record reflects my personal performance and is accurate and complete. Niesha Galdamez MD Associate Staff Physician [facility] [address] [place] [address] Pager: [phone] documented in this encounter [facility] 02-12-2024 Nurse Note Additional intake questions: Has the patient had fever, nausea, vomiting, diarrhea, constipation, fatigue for > 1 week? No Does the patient have a decreased appetite? No Does patient want to see a Mathematics Professor? No (yes to any of above refer patient to schedulers for dietitian appointment) ) Does patient have any new or increased numbness or tingling of extremities? No Is patient interested in fertility information? No Does patient need any prescription refills? No Does patient have an advanced directive in place? No Electronically Signed By: Wallace Tolentino LPN documented in this encounter [facility] 02-02-2024 Note [facility] 02-02-2024 History of Present illness Narrative POPULATION HEALTH NAVIGATION OUTREACH Action/FYI PCP is EMELIA GONZALEZ MD formerly [facility] Care Everywhere PCP field updated Reason for Outreach Care Gap/HCC or Scheduling Wellness Visits Care Gaps due: Establish Care Appointment Patient Contacted: Unable or unnecessary to reach patient: PCP field updated Navigation Signature: Brit Arzola MA February 02, 2024 4:05 PM documented in this encounter [facility] 02-02-2024 Note [facility] 02-02-2024 History of Present illness Narrative PATIENT NAME: Katia Shaikh DATE: 02/02/2024 PRIMARY CARE PHYSICIAN: No PCP OTHER PHYSICIANS: Dr. Rivera, Dr. Emelia Gonzalez ([facility]), Dr. Niesha Galdamez Portions of this encounter note have been copied from the note from 01/12/2024 and has been updated where appropriate, and reflect my current medical decision making from today. CC: This is a 68 year old male with recurrent lymphoma, seen for scheduled follow-up. INTERIM HISTORY: Since the patient's last visit here he followed up with the [facility] lymphoma group (Dr. Galdamez) and temporary plans are to proceed with aggressive chemotherapy/CAR-T for the treatment of his recurrent high-grade lymphoma. However, he sought second opinion at [facility] and there were concerns that previous Bendamustine treatment may limit the effectiveness of CAR-T therapy, and apparently recommendations were to consider salvage chemotherapy/stem cell transplant rather than CAR-T. Currently the patient and his have many questions and concerns. Physically he feels the same. Mild discomfort in his right inguinal area, no severe pain. No recent fevers, night sweats, or weight loss. MEDICATIONS: [...] HISTORY OF Thoracentesis FAMILY HISTORY: FAMILY HISTORY Problem Relation Age of Onset Melanoma Father Cancer Maternal Grandfather Leukemia Paternal Grandfather Pancreatic Cancer Paternal Aunt Renal Cell Cancer Paternal Aunt SOCIAL HISTORY: Social History Tobacco Use Smoking status: Former Packs/day: 1.00 Years: 35.00 Additional pack years: 0.00 Total pack years: 35.00 Types: Cigarettes Quit date: 2009 Years since quittin.2 Passive exposure: Past Smokeless tobacco: Never Substance Use Topics Alcohol use: Yes Comment: beer occ Drug use: Never REVIEW OF SYSTEMS: General: [...] paralysis, seizures or tremors. PHYSICAL EXAM: BP 135/76 Pulse 81 Temp 36.2 C (97.2 F) (Temporal) Resp 18 Wt 83.2 kg (183 lb 6.8 oz) SpO2 98% BMI 26.32 kg/m ECOG 0 Exam limited to gross [...] skin without rash, lesions, wounds or petechiae. Palpable right inguinal lymph node/cyst 1-2 cm. Firm to palpation. PATHOLOGY: 12/17/2023 [place]inal [place] node [place] [facility]: Mature B-cell non-Hodgkin lymphoma [facility] Pathology:-Aggressive large B-cell lymphoma, favor germinal center immunophenotype 05/07/2023 Right inguinal lymph node biopsy [facility]: Diffuse large B-cell lymphoma [facility] Pathology: Follicular lymphoma, grade 3A Comment: The histologic and immunophenotypic findings demonstrate 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 Definitive areas of diffuse large B-cell lymphoma are not identified. LABS: Hemoglobin (g/dL) Date Value 12/25/2023 14.1 Hematocrit (%) Date Value 12/25/2023 40.3 WBC (k/uL) Date Value 12/25/2023 5.59 Platelet Count (k/uL) Date Value 12/25/2023 216 RADIOLOGY/OTHER STUDIES: 01/30/2024 PET scan IMPRESSION: HEAD/NECK: * No FDG avid neoplastic process. CHEST: * New mildly FDG avid 6 mm left upper lobe pulmonary nodule, indeterminate for infectious/inflammatory etiology versus malignancy/lymphomatous involvement. Short-term follow-up with noncontrast chest CT in 3 months is recommended to evaluate for stability/resolution. * Mild bilateral hilar uptake is similar to prior, with activity that is slightly above mediastinal blood pool, likely benign/reactive. Continued close attention on follow-up recommended. ABDOMEN/PELVIS: * Numerous new intensely FDG avid right medial thigh, right inguinal, right external iliac and right pelvic nodes, compatible with lymphomatous involvement. * There is a 5 cm probable postoperative seroma or lymphocele in the region of right inguinal cynthia excision. * Mild, asymmetric activity in the left posterior peripheral zone of the prostate gland. This is nonspecific and may represent variant parenchymal uptake. However, malignancy is not excluded and correlation with PSA level is recommended MUSCULOSKELETAL: * No FDG avid neoplastic process. 11/18/2023 PET scan IMPRESSION: Since 09/23/2023, HEAD/NECK: * No FDG avid neoplastic process. CHEST: * Focal uptake at the distal esophagus is likely physiologic or inflammatory, for example related to reflux esophagitis. Clinical correlation is recommended. ABDOMEN/PELVIS: * A right inguinal lymph node has increased in size and FDG avidity. * Focal, intense uptake at the distal sigmoid colon is not substantially changed. Although this is nonspecific and may be benign or physiologic, bowel lymphomatous involvement is also a consideration. Continued close attention on follow-up imaging versus further evaluation with colonoscopy is recommended. BONES/SOFT TISSUES: * No suspicious FDG avid osseous lesion. Deauville score: 5 09/23/2023 PET scan IMPRESSION:Most of the previously present hypermetabolic lymphadenopathy is regressed/resolved. residual hypermetabolic right inguinal lymph node 1. Neck: No suspicious hypermetabolic foci 2. Chest: No evidence of FDG avid neoplastic process 3. Abdomen and pelvis: residual hypermetabolic right inguinal lymph node 4. Skeleton: No hypermetabolic osseous lesions. Deauville Criteria score : 4 04/24/2023 PET scan ([facility]) Above the diaphragm the patient has significant [...] He subsequently received radiation therapy to the thoracic area Jul 2002. He had a complete response to initial therapy and did well. In March 2023 he presented with increasing bilateral inguinal adenopathy. PET scan 04/24/2023 revealed diffuse areas of lymphadenopathy consistent with recurrent lymphoma. On 05/07/2023 he underwent an incisional biopsy of a right inguinal lymph node at [facility]. Initial pathology per [facility] consistent with diffuse large B-cell lymphoma. However, on review per [facility] pathology it was felt to be consistent with follicular grade 3 lymphoma rather than diffuse large B-cell lymphoma. He was seen by Dr. Galdamez at [facility], and recommendations were to proceed with chemotherapy consisting of Bendamustine plus Rituxan, with plans to give every 4 weeks x 6 cycles. BR cycle 1 started 06/10/2023 and the patient tolerated it well. Shortly after starting chemotherapy his back pain, palpable adenopathy, and night sweats resolved. Follow-up PET scan 09/23/2023 (after 4 cycles) revealed persistent small uptake in the right inguinal area, otherwise complete resolution of all adenopathy. BR cycle 6 completed 10/29/2023. Follow-up PET scan 11/18/2023 revealed an increasing FDG avid lesion in the right inguinal area, otherwise no evidence of disease. On 12/17/2023 the patient underwent excisional biopsy of the right inguinal node. [facility] [facility] confirmed aggressive large B-cell lymphoma, favor germinal center type. 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 Most recent PET scan 01/30/2024 revealed progressive adenopathy right medial thigh, right inguinal, right external iliac and right pelvic nodes, compatible with lymphomatous involvement. Also seen was a small left upper lobe nodule of unclear significance. Options for management and NCCN guidelines were once again reviewed at length. The patient and his are aware that standard of care would be aggressive chemotherapy followed by CAR-T versus stem cell transplant. Currently he has many concerns about how his previous exposure to Bendamustine would affect the effectiveness of CAR-T versus stem cell. He is scheduled to see Dr. Galdamez at [facility] on 02/12/2024 at which time the patient's concerns will be addressed. If so inclined he will then proceed with treatment. Pending final chemotherapy plans I did not schedule a return visit here, but was seen in the future as needed to assist with care. 2. Acquired hypothyroidism - ICD9: 244.9, ICD10: E03.9 The patient developed post radiation hypothyroidism in 2001. Currently on Synthroid 125 mcg daily. Will monitor TFTs and adjust dosage accordingly. 3. Elevated Uric acid, suspected allergy to allopurinol Allopurinol started 06/06/2023 for the treatment of elevated uric acid and to prevent tumor lysis syndrome. The patient developed a diffuse rash by 06/25/2023 and allopurinol discontinued. The rash resolved and the patient's uric acid level has remained normal. Will monitor the uric acid closely, and use alternative agents if indicated. Michael Boykin MD documented in this encounter [facility] 01-30-2024 Note [facility] 01-30-2024 Note [facility] 01-28-2024 History of Present illness Narrative Images from the original note were not included. IDENTIFICATION: Katia Shaikh is a 68 y.o. male who presents as a referral from Self, Self in consultation for recommendations about work up and management of DLBCL. I have reviewed the outside records and interviewed the patient and my findings are summarized below. 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 Path: CONTROL SUPERVISOR GCB ; Ki-67 70-80%; No MYC/BCL2 double expression; FISH positive BCL6; CD5 negative NCCN-IPI: Pending Age 60-75 (2) and LDH >1-3x ULN (1); Low-intermediate (2-3); 5yr PFS 74%, OS 82% SUBCONTRACT ADMINISTRATOR-IPI: Pending Age >60 and LDH elevated; Intermediate (2-3); 2 year risk 3.4% HIV/Hep B testing: Pending HIV negative, Hep B core Ab negative Fertility: None Past Therapy: R-CHOP x 6 followed by consolidative RT (2001) BR x6 (May - October 2023) Discussion: 68 y.o. 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 who sought second opinion at [facility] where Pathology rendered diagnosis of FL grade 3A. He was then treated with BRx6 cycles, completed in October 2023 who had clinical progression of an inguinal node by end of BR which was FDG avid on his EOT PET (read as Deauville 5) and subsequently biopsied on 12/17/23 revealing aggressive large B-cell lymphoma (FISH negative for MYC and BCL2, positive for BCL6) of germinal center immunophenotype. He presents today for second opinion but, per notes, intends to continue following with Dr. Castaneda at [facility], who has recommended CAR-T therapy. We discussed that his overall picture is potentially consistent with a late relapse of DLBCL vs a de josse DLBCL in the setting of FL. There was discrepancy regarding his diagnosis last March, initially being DLBCL then changed to FL 3A per [facility] Path review. He has now received BR x6 cycles and has biopsy proven DLBCL in an inguinal node at EOT. We discussed that having persistent disease at the end of BR does not represent truly chemorefractory disease as BR would not have been a standard salvage regimen for relapsed DLBCL. As such, it would be reasonable to test the chemosensitivity of his disease at present with a standard DLBCL salvage regimen (we discussed R-ICE or R-DHAX). Pending his response to this regimen, we would either recommend consolidation with an autoSCT if responsive or consideration of CAR-T therapy if not responsive. Proceeding directly to CAR-T would not be unreasonable if that is his preference. We did discuss that he has just completed 6 cycles of bendamustine and that this can impair CAR-T outcomes with regards to collection, time to peak CAR-T expansion, and response rate compared to patients who had received no bendamustine within 9 months in a retrospective study (Donnaoni G, J Clin Oncol. 2023;42(2):205-217) and it would perhaps be prudent to try to get him further out from bendamustine prior to attempting pheresis and CAR-T and traditional salvage chemo could be employed in the meantime and, if achieving a CR, proceeding to curative intent auto. If failing to achieve a CR, CAR-T could be considered at that time. We lastly discussed a clinical trial involving R-tafasitamab with potential for escalation to R-ICE if not achieving response. We additionally discussed, in response to their question, that we would not consider radiation in this current setting sufficient treatment of his DLBCL though there is occasionally a role for consolidation radiation therapy (this is not his situation). The patient is undergoing a repeat PET scan this Friday and would prefer to consider their options, hear the results of the PET and get back to us regarding their decision. We discussed that, given his strong preference not to be hospitalized, salvage chemo regimens could be administered outpatient as well as CAR-T potentially (Anjum) though any complications would potentially require hospitalization and that autoSCT would require inpatient hospitalization. I have personally reviewed and interpreted the results of the patient's CBC w/ diff, CMP, LDH, uric acid, Hepatitis panel, and HIV Ab. I have personally viewed the PET/CT images and CT images and have reviewed the results with the patient today (01/28/2024). Other Medical Issues: COVID Vaccine: Not addressed Hypothyroidism: On levothyroxine PLAN: - DLBCL, possibly transformed from FL G3A - Would not consider his disease chemorefractory given received BR only for relapsed disease - Reasonable to treat as late relapse and pursue salvage chemotherapy (R-DHAX, R-ICE) and, depending on response, proceed with consolidative auto-SCT (if chemosensitive) vs proceed with CAR-T therapy (if chemorefractory) - Reasonable to pursue CAR-T at present if that is patient's preference though we did discuss retrospective data (cited above) which shows suggestion of recent bendamustine exposure negatively impacting outcomes of CAR-T patients - Pt to complete PET Friday - Will follow up with patient following PET scan to determine his final treatment preference Return if symptoms worsen or fail to improve. Patient seen and evaluated and plan of care developed together with attending physician, Dr. Cici Mora MD Hematology/Medical Oncology Fellow Pager [phone] HISTORY OF PRESENT ILLNESS: See Oncology History for details of imaging and path results. Please see assessment and plan for further details. In brief, Katia Shaikh is a 68 y.o. 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 who sought second opinion at [facility] where Pathology changed the diagnosis of DLBCL to FL grade 3A. He was then treated with BRx6 cycles, completed in October 2023. His iPET showed response in all areas except his R inguinal node had residual disease and by C5, he had had clinical progression of this inguinal node and by end of BR which was FDG avid on his EOT PET (read as Deauville 5) and subsequently biopsied on 12/17/23 revealing aggressive large B-cell lymphoma of germinal center immunophenotype. He presents today for second opinion but, per notes, intends to continue following with Dr. Castaneda at [facility], who has recommended CAR-T therapy. He presents to our clinic today for second opinion. He is accompanied by his . He states that he is wanting to make sure he hears about all potential options because they feel they have had a complicated clinical course. Today, he denies headaches, vision changes, SOB, chest pain, abdominal pain, diarrhea, constipation, LE edema. Denies weight loss, night sweats, fevers, chills, severe fatigue, or early satiety. He remains active with walking 3 miles a day. He feels he had no adverse effects from BR regimen and has no impairment in his ability to do his daily activities. He said R-CHOP was a rough regimen mostly due to fatigue and hair loss but he did not experience significant neuropathy, mucositis, nausea, vomiting, diarrhea, constipation. Oncology History Transformed 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 2002 Other Diagnosed with stage III DLBCL arising from follicular lymphoma. 6 cycles of CHOP (possible R, but patient is not sure). Consolidative RT to the chest. Achieved CR. 04/24/2023 Imaging PET 1. Above the diaphragm, the patient has [...] compatible with extensive lymphoma. Deauville score: 5. 05/07/2023 Pathology Right inguinal lymph node biopsy [facility]: Diffuse large B-cell lymphoma [facility] Pathology: Follicular lymphoma, grade 3A Comment: The histologic and immunophenotypic findings demonstrate 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 Definitive areas of diffuse large B-cell lymphoma are not identified. 06/10/2023 - 10/29/2023 Chemotherapy Bendamustine + Rituximab x6 09/23/2023 Imaging PET scan Most of the previously present hypermetabolic lymphadenopathy is regressed/resolved. Residual hypermetabolic right inguinal lymph node 1. Neck: No suspicious hypermetabolic foci 2. Chest: No evidence of FDG avid neoplastic process 3. Abdomen and pelvis: residual hypermetabolic right inguinal lymph node 4. Skeleton: No hypermetabolic osseous lesions. Deauville Criteria score : 4 11/18/2023 Imaging PET HEAD/NECK: No FDG avid neoplastic process. CHEST: Focal uptake at the distal esophagus is likely physiologic or inflammatory, for example related to reflux esophagitis. Clinical correlation is recommended. ABDOMEN/PELVIS: A right inguinal lymph node has increased in size and FDG avidity. Focal, intense uptake at the distal sigmoid colon is not substantially changed. Although this is nonspecific and may be benign or physiologic, bowel lymphomatous involvement is also a consideration. Continued close attention on follow-up imaging versus further evaluation with colonoscopy is recommended. BONES/SOFT TISSUES: No suspicious FDG avid osseous lesion. Deauville score: 5 12/17/2023 Pathology Right inguinal lymph node biopsy (FR) [facility]: Mature B-cell non-Hodgkin lymphoma [facility] Pathology:-Aggressive large B-cell lymphoma, favor germinal center immunophenotype PAST MEDICAL HISTORY: Past Medical History: Diagnosis Date DLBCL (diffuse large B cell lymphoma) History of cancer History of chemotherapy History of radiation therapy MEDICATIONS: Current Outpatient Medications Medication Sig Dispense Refill Ondansetron 8 MG tablet Take 1 tablet by mouth Every 8 hours as needed. predniSONE 20 MG tablet TAKE 2 TABLETS BY MOUTH DAILY FOR 5 DAYS,THEN 1 TABLET DAILY Prochlorperazine 10 MG tablet Take 1 tablet by mouth Every 6 hours as needed. Levothyroxine 125 MCG tablet Take 1 tablet by mouth daily. Multiple Vitamin (Multi-Vitamin) tablet Take 1 tablet by mouth daily. No current facility-administered medications for this visit. 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 A complete ROS is otherwise negative. VITAL SIGNS: Vitals: 01/28/24 0955 BP: 129/71 Pulse: 91 Resp: 16 Temp: 97.9 degrees F (36.6 degrees C) TempSrc: Oral SpO2: 98% Weight: 84.6 kg (186 lb 8 oz) Height: 1.791 m (5' 10.5 ) EXAM: ECOG PS: 0 CONST: NAD, Awake, Alert HEENT: Oropharynx clear. No ptosis. Sclera anicteric. LYMPH: R inguinal area with 5-6 cm well circumscribed firm fullness at site of surgical scar - difficult to tell if scar tissue vs lymph node. No cervical, supraclavicular, axillary LAD. RESP: Clear to auscultation bilaterally. No wheezes, crackles, rales. CV: Regular rate and rhythm. No rubs, gallops or murmurs. No edema. GI: Soft, nontender, nondistended. No hepatosplenomegaly. MSK: No joint swelling or deformities. NEURO: No focal deficits. CN II-XII grossly intact. Strength is normal. Skin: No rash. Port in R upper chest c/d/I. LABORATORY: Office Visit on 01/28/2024 Component Date Value Ref Range Status Uric Acid 01/28/2024 7.4 (H) 3.5 - 7.0 mg/dL Final LD Total 01/28/2024 177 100 - 190 U/L Final Sodium 01/28/2024 139 135 - 145 mmol/L Final Potassium 01/28/2024 3.9 3.5 - 5.0 mmol/L Final Chloride 01/28/2024 107 98 - 108 mmol/L Final BUN 01/28/2024 15 7 - 25 mg/dL Final Creatinine 01/28/2024 1.08 0.70 - 1.30 mg/dL Final Glucose 01/28/2024 135 (H) 70 - 99 mg/dL Final Bilirubin Total 01/28/2024 0.4 <1.5 mg/dL Final Albumin 01/28/2024 4.2 3.5 - 5.0 g/dL Final Total Protein 01/28/2024 7.1 6.4 - 8.3 g/dL Final AST 01/28/2024 22 10 - 39 U/L Final ALP 01/28/2024 165 (H) 32 - 126 U/L Final Calcium 01/28/2024 9.6 8.6 - 10.5 mg/dL Final CO2 01/28/2024 23 21 - 31 mmol/L Final ALT 01/28/2024 24 10 - 52 U/L Final Bun/Crea Ratio 01/28/2024 14 Final Osmolality (Calculated) 01/28/2024 294 278 - 305 mOsm/kg Final Anion Gap 01/28/2024 13 7 - 17 mmol/L Final eGFR, CKD-EPI, Male 01/28/2024 75 >=60 mL/min/1.73m2 Final Reported eGFR is based on the CKD-EPI 2020 equation using creatinine, age, and sex. After visit summary was printed and given to patient. Discharge instructions and follow up appointments reviewed with patient. All questions answered. Patient verbalized understanding. Patient and family encouraged to call with any additional questions. I saw and evaluated Katia Shaikh with fellow, Dmitry Mora MD. I provided a substantive portion of the care for this patient. I personally performed all aspects of the medical decision making for this encounter. I have reviewed and verified this documentation and it accurately reflects our care. 68 y.o. with past medical history of DLBCL initially diagnosed in 2001 who was treated with six cycles of R-CHOP followed by consolidative radiation to the chest, achieving a CR. He did very well in follow up surveillance until early 2022 when underwent staging evaluation and was found to have widespread LAD, underwent a right inguinal LN bx which was read as DLBCL locally and as follicular lymphoma grade 3A after second opinion at [facility]. BR x6 cycles was recommended, completed in 10/2023. EOT PET demonstrated significant improvement and resolution in most areas of prior involvement, but persistent FDG avidity in the right inguinal LN. He underwent an excisional LN biopsy which demonstrated DLBCL ([facility] pathology). We reviewed his clinical course and pathologic findings in detail. Based on the available data at the time of treatment decisions, I believe that BR was a reasonable choice for grade 3A FL. However, now with the knowledge of refractory disease to BR in the right inguinal LN, biopsy proven DLBCL, BR was insufficient to effectively treat this area of disease which seemed to likely be transformed DLBCL from FL (potentially from the time of treatment in 2022). The patient states that the current plan is to proceed with CD19.CAR-T cell therapy at [facility]. A PET scan is planned for 01/30/24 prior to final decision. I reviewed that at this time, I would not necessarily classify his lymphoma as chemotherapy refractory given the insufficient therapy with BR. In addition, I reviewed the concern for proceeding directly to CAR-T cell therapy with recent Bendamustine exposure completing in the past 3-4 months. Multiple studies have demonstrated lower efficacy of CD19.CAR-T after recent bendamustine in the proceeding 9-12 months. Chika et al demonstrated a significant impact if exposure occurred within 9 months, finding a lower CAMARENA (40% v 72%), shorter PFS (1.3 v 6.2 months), and OS (4.6 v 23.5 months) in comparison with bendamustine-na ve patients (Chika, JCO, 2023). I believe there are two reasonable options at this time: 1) Proceed with CD19.CAR-T cell therapy (either Yescarta or Breyanzi) for refractory DLBCL, with the understanding of possible impacts of Bendamustine exposure. 2) Proceed with salvage therapy, RDHAX of RICE with goal of proving chemotherapy sensitivity prior to either ASCT if achieving a CR or later proceeding to CART if insufficient response. 3) Consider clinical trial with Tafa/Ross -> Tafa-ICE with option to ASCT or not. This case was reviewed in our lymphoma tumor board, with varying recommendations demonstrating a lack of clear standard of care in this situation. I will follow up with the patient after his PET scan for further review and discussion. Documented by Sridevi Harris, for Dr. Bolanos on 01/28/2024 at 10:29 AM All medical record entries made by the Steven were at my direction and personally dictated by me, Dorcas Bolanos MD . I have reviewed and edited the chart and agree that the record accurately reflects my personal performance of the history, physical exam, assessment and plan. I have also personally directed, reviewed, and agree with the discharge instructions. Dorcas Bolanos MD, MSCR Ornamental Iron Worker Helper - Division of Hematology [facility] documented in this encounter [facility] 01-28-2024 Instructions Chioma Austin RN - 01/28/2024 10:[address] Bolanos Clinic Orientation Thank you for entrusting your care to us at [facility]. Our clinic specifically focuses on the management of patients with lymphoma and we aim to provide you the best, most innovative treatments available. Despite great advances in the treatment of many lymphomas over the past several decades, we know that we can and should continue to strive for better outcomes. As part of that mission, we will offer you the highest quality standard of care options for treatment, but we will also discuss any potential clinical trials for which you may be eligible. Team members: Bakari Bolanos MD, MSCR: physician Patti Isidro, ARCADE GAME TECHNICIAN: nurse practitioner Chana Brown, ARCADE GAME TECHNICIAN: nurse practitioner Rosa Elena Yates, RN: clinic nurse Chioma Austin, RN: clinic nurse Kelsy Gage, RN: Patient Care Pneumatic Press Hand Brian Hilliard MS, RD: hearth feeder Eliazar Reeder, [facility] & Brittani Redmond [facility]: Pharmacists Adhesive Bonding Machine Operator [facility] is a teaching institution; you may also have visits that include medical students, residents, or fellows in training. What to expect for your visits: While on treatment, we recommend planning to be with us for the entire day. We only have clinic on Wednesdays and generally cannot see patients on other days of the week (see Coordination of care section below). Please bring all medication bottles including herbal supplements and over the counter medications that you are routinely taking to every visit. This is important to ensure that we know about any potential drug interactions. After checking in, you will have your blood drawn. You will then see a provider to evaluate how well you are tolerating therapy (if on treatment), review test results, and answer any questions you have. Assuming that you are on therapy and tolerating it well, you will then go to the infusion area to receive your treatment. At times, our clinic may run behind schedule; we acknowledge that your time is valuable and that this can be frustrating for everyone involved. Please know that we strive to give the best care to each individual patient and make you feel heard, respected, and cared for. Due to the nature of our work, sometimes that takes more time than is allotted in the schedule. Please remember that at some point, the person who needs that extra time may be you and we will certainly aim to give you that even at the expense of running behind schedule for the remainder of the day. Communication of test results: We will review most lab results with you during your visit. Our team will review any labs performed outside of our visits. If you get labs drawn outside of the [facility] system at our request, please let us know when and where you had them drawn so we can ensure that we receive the results. We do not routinely convey normal lab results obtained outside of visits. If there is a lab result that needs to be discussed with you, we will contact you via phone or Assemblagehart. With rare exception, we schedule visits shortly after any imaging studies. The purpose of these visits is to review your images with you, discuss the results, and to discuss any potential changes to your treatment plan based on those results. If there is an urgent or emergent finding in your imaging, we will call you. Otherwise, in our experience it is best to have these conversations in person at your visits. How to communicate with us best: If you are having a medical emergency, please call 911 rather than our office. After your visit, you may have questions or concerns that arise. For urgent matters, please call the nurse triage line at [phone] (open 26/05). Nurse Triage . For non-urgent matters or general questions, we prefer that you write them down so that we can address them in person at our next visit. If you feel that your question needs to be addressed prior to your next visit, please call nurse triage ([phone]) or send a message in Laguo. If you need medication refills for drugs that we have prescribed you, it is best to let us know during your office visit. If you need a refill before your next visit, please send a message via Laguo. Please alert us at least 7 days before you run out of medication. Coordination of care: We are helping to take care of you alongside other healthcare teams. You may have medical concerns that are outside of our expertise, so we ask that you maintain your relationship with other healthcare providers (especially your primary care physician) throughout your treatment; we will likely ask you to contact them for issues unrelated to your lymphoma or treatment. This is particularly important as we are only able to see patients on Wednesdays, and you may need to be evaluated by a member of your healthcare team prior to our next availability. We will send a letter and records to any referring physician and/or your primary care physician after our visit. Disability/FMLA paperwork: Please allow up to 2 weeks for all paperwork (disability, FMLA, etc.) to be filled out. The primary nurse is the one who will normally fill this paperwork out for you, and will only call to inform you the paperwork is completed and sent if requested. In order to help you as efficiently as possible, please specify: Which forms you need filled out Where we should send it when completed (to you, your employer, etc). [facility] [employer]: The medical information you will have access to within the My Chart program is limited (basic laboratory results, summary of medical history, visit history, and selected billing information). If you need results of a test that you can't find within [facility], please feel free to call us and we will get back to you with that information. Please allow 24-48 hours for a response when using My Chart. Please do not use My Chart for urgent needs. The best way to communicate urgent needs is by calling the nurse triage line. [employer]: Each year, I ride 50+ miles for cancer research. This is a bike ride in [place] - 100% of every donation is invested at [facility] for innovative cancer research. Please see my rider profile: [email or web address] Results for orders placed or performed in visit on 01/28/24 URIC ACID Result Value Ref Range Uric Acid 7.4 (H) 3.5 - 7.0 mg/dL LACTATE DEHYDROGENASE Result Value Ref Range LD Total 177 100 - 190 U/L COMPREHENSIVE METABOLIC PANEL Result Value Ref Range Sodium 139 135 - 145 mmol/L Potassium 3.9 3.5 - 5.0 mmol/L Chloride 107 98 - 108 mmol/L BUN 15 7 - 25 mg/dL Creatinine 1.08 0.70 - 1.30 mg/dL Glucose 135 (H) 70 - 99 mg/dL Bilirubin Total 0.4 <1.5 mg/dL Albumin 4.2 3.5 - 5.0 g/dL Total Protein 7.1 6.4 - 8.3 g/dL AST 22 10 - 39 U/L ALP 165 (H) 32 - 126 U/L Calcium 9.6 8.6 - 10.5 mg/dL CO2 23 21 - 31 mmol/L ALT 24 10 - 52 U/L Bun/Crea Ratio 14 Osmolality (Calculated) 294 278 - 305 mOsm/kg Anion Gap 13 7 - 17 mmol/L eGFR, CKD-EPI, Male 75 >=60 mL/min/1.73m2 documented in this encounter [facility] 01-27-2024 Miscellaneous Notes Attempted to contact patient to discuss CAR-T therapy. No answer, message left and contact information provided. Radha Peng RN January 27, 2024 3:07 PM documented in this encounter [facility] 01-19-2024 Note [facility] 01-16-2024 Note [facility] 01-16-2024 History of Present illness Narrative Images from the original note were not included. [facility] DEPARTMENT OF HEMATOLOGY AND MEDICAL ONCOLOGY [facility] VISIT This visit is a Audio Only Visit encounter which required patient-provider interaction for the medical decision making as documented below. Persons Present: patient and patient's spouse/significant other I have communicated my name and active licensure. The patient s identity and physical location were verified at the time of this visit. Katia Shaikh or their legal access services representative has been informed of the risks and benefits of -- and alternatives to -- treatment through a remote evaluation and consents to proceed with the evaluation remotely. 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 At time of diagnosis he had a lot of SOB given location of the disease. He was treated with six cycles of CHOP (+/- rituximab, OS records mention R but he does not recall this) followed by radiation to his chest. He did well with therapy and achieved a complete remission. March 2023: Noticed lump on his leg prompting evaluation which led to biopsy and imaging. This was an incisional biopsy. The pathology was read as DLBCL at [facility]. Apr 2023: PET/CT with FDG avid lymphadenopathy above and below the diaphragm with bulky disease in abdomen and pelvis. May 2023: Came to [facility] for consultation. [facility] read this biopsy as FL, grade 3A. Given prior anthracycline and [facility] reading FL the tumor board consensus was to proceed with BR x 6 cycles. Oct 2023: Completed cycle 6 of BR . He states he could feel the inguinal LN increasing prior to the end of therapy. Nov 2023: EOT PET/CT with resolution most lymphadenopathy with exception of right inguinal LN which was larger from previous and higher SUV max (now up to 28.5). Dec 2023: Excisional LN biopsy with DLBCL INTERVAL HISTORY: Katia Shaikh and his return for phone follow up to address questions about treatment options. He still feels fine. 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 PHYSICAL EXAM: None- audio only DATA REVIEWED: No new data ASSESSMENT AND PLAN: Katia Shaikh is a 68 year old man who presents for follow up given recent progression. Briefly, he was diagnosed with DLBCL arising from FL in 2001 and was treated with CHOP (+/-R) and XRT. He developed diffuse/bulky lymphadenopathy last year and incisional biopsy showed FL, grade 3A and he was treated with BR x 6 cycles. EOT PET/CT in November showed resolution of lymphadenopathy with the exception of the right inguinal LN which was 4.3 x 3.5 and increased from his interim PET/CT. He has undergone excisional LN biopsy and this is DLBCL. I again discussed that radiation alone would not be curative and he would be at risk of progression. His case was presented at both Tumor Board and BMT selection committee and consensus recommendation was CAR T-cell therapy. I explained process and logistics of this therapy. We mutually decided to seek insurance approval while he considers this option. He also needs to be re-staged given no imaging x 2 months so will order PET/CT to be done at [place]. Niesha Galdamez MD Associate Staff Physician [facility] [address] [place] [address] Pager: [phone] documented in this encounter [facility] 01-14-2024 Miscellaneous Notes Pt has a virtual visit scheduled w/ Dr Galdamez on 01/16/24. States that he has no virtual capability at home. Advised pt to contact Dr Galdamez's office and ask if the visit could be done over the phone instead. Phone number for Dr Galdamez's office provided to pt. Pt verbalizes understanding. Pt also presents w/ questions pertaining to CAR-T therapy. Explained to pt that these would be best discussed w/ Dr Galdamez as well. Pt verbalizes understanding. No additional questions noted. Ivania Jackman RN documented in this encounter [facility] 01-12-2024 Note [facility] 01-12-2024 History of Present illness Narrative PATIENT NAME: Katia Shaikh DATE: 01/12/2024 PRIMARY CARE PHYSICIAN: No PCP OTHER PHYSICIANS: Dr. Rivera, Dr. Emelia Gonzalez ([facility]), Dr. Niesha Galdamez Portions of this encounter note have been copied from the note from 12/25/2023 and has been updated where appropriate, and reflect my current medical decision making from today. CC: This is a 68 year old male with recurrent lymphoma, seen for scheduled follow-up. INTERIM HISTORY: Since the patient's last visit here his right inguinal lymph node biopsy was reviewed by [facility] pathology. The diagnosis of aggressive B-cell lymphoma was confirmed. He was by Dr. Niesha Galdamez at [facility] for recommendations concerning treatment. Aggressive treatment with CAR-T was recommended. Currently the patient feels fairly well. He has noticed increased swelling in the right inguinal area, but no associated pain. No other areas of pain. No recent fevers, night sweats, or weight loss. MEDICATIONS: [...] HISTORY OF Thoracentesis FAMILY HISTORY: FAMILY HISTORY Problem Relation Age of Onset Melanoma Father Cancer Maternal Grandfather Leukemia Paternal Grandfather Pancreatic Cancer Paternal Aunt Renal Cell Cancer Paternal Aunt SOCIAL HISTORY: Social History Tobacco Use Smoking status: Former Packs/day: 1.00 Years: 35.00 Additional pack years: 0.00 Total pack years: 35.00 Types: Cigarettes Quit date: 2009 Years since quittin.2 Passive exposure: Past Smokeless tobacco: Never Substance Use Topics Alcohol use: Yes Comment: beer occ Drug use: Never REVIEW OF SYSTEMS: General: [...] paralysis, seizures or tremors. PHYSICAL EXAM: BP 140/77 Pulse 100 Temp 36.1 C (97 F) (Temporal) Resp 18 Wt 83.9 kg (184 lb 15.5 oz) SpO2 97% BMI 26.54 kg/m ECOG 0 Exam limited to gross [...] skin without rash, lesions, wounds or petechiae. Palpable right inguinal lymph node/cyst 1-2 cm. Firm to palpation. PATHOLOGY: 12/17/2023 [place]: Mature B-cell non-Hodgkin lymphoma [facility] Pathology:-Aggressive large B-cell lymphoma, favor germinal center immunophenotype 05/07/2023 Right inguinal lymph node biopsy [facility]: Diffuse large B-cell lymphoma [facility] Pathology: Follicular lymphoma, grade 3A Comment: The histologic and immunophenotypic findings demonstrate 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 Definitive areas of diffuse large B-cell lymphoma are not identified. LABS: Hemoglobin (g/dL) Date Value 12/25/2023 14.1 Hematocrit (%) Date Value 12/25/2023 40.3 WBC (k/uL) Date Value 12/25/2023 5.59 Platelet Count (k/uL) Date Value 12/25/2023 216 RADIOLOGY/OTHER STUDIES: 11/18/2023 PET scan IMPRESSION: Since 09/23/2023, HEAD/NECK: * No FDG avid neoplastic process. CHEST: * Focal uptake at the distal esophagus is likely physiologic or inflammatory, for example related to reflux esophagitis. Clinical correlation is recommended. ABDOMEN/PELVIS: * A right inguinal lymph node has increased in size and FDG avidity. * Focal, intense uptake at the distal sigmoid colon is not substantially changed. Although this is nonspecific and may be benign or physiologic, bowel lymphomatous involvement is also a consideration. Continued close attention on follow-up imaging versus further evaluation with colonoscopy is recommended. BONES/SOFT TISSUES: * No suspicious FDG avid osseous lesion. Deauville score: 5 09/23/2023 PET scan IMPRESSION:Most of the previously present hypermetabolic lymphadenopathy is regressed/resolved. residual hypermetabolic right inguinal lymph node 1. Neck: No suspicious hypermetabolic foci 2. Chest: No evidence of FDG avid neoplastic process 3. Abdomen and pelvis: residual hypermetabolic right inguinal lymph node 4. Skeleton: No hypermetabolic osseous lesions. Deauville Criteria score : 4 04/24/2023 PET scan ([facility]) Above the diaphragm the patient has significant [...] increasing bilateral inguinal adenopathy. PET scan 04/24/2023 revealed diffuse areas of lymphadenopathy consistent with recurrent lymphoma. On 05/07/2023 he underwent an incisional biopsy of a right inguinal lymph node at [facility]. Initial pathology per [facility] consistent with diffuse large B-cell lymphoma. However, on review per [facility] pathology it was felt to be consistent with follicular grade 3 lymphoma rather than diffuse large B-cell lymphoma. He was seen by Dr. Galdamez at [facility], and recommendations were to proceed with chemotherapy consisting of Bendamustine plus Rituxan, with plans to give every 4 weeks x 6 cycles. BR cycle 1 started 06/10/2023 and the patient tolerated it well. Shortly after starting chemotherapy his back pain and palpable adenopathy resolved. Follow-up PET scan 09/23/2023 (after 4 cycles) revealed persistent small uptake in the right inguinal area, otherwise complete resolution of all adenopathy. BR cycle 6 completed 10/29/2023. Follow-up PET scan 11/18/2023 revealed an increasing FDG avid lesion in the right inguinal area, otherwise no evidence of disease. On 12/17/2023 the patient underwent excisional biopsy of the right inguinal node. [facility] pathology confirmed aggressive large B-cell lymphoma, favor germinal center type. 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 Options for further management and NCCN guidelines were reviewed at length with the patient and his (more than 1 hour). They are aware that standard of care would be aggressive treatment including CAR-T versus high-dose chemotherapy/stem cell transplant. However, he is predominantly concerned about the potential side effects of these treatment options. They questioned the role of standard outpatient chemotherapy. They were made aware that standard regimens most likely would not be curative. In addition, palliative radiation therapy to the right inguinal area most likely would also not be curative. The patient will be given time to consider his treatment options. A virtual visit is scheduled with Dr. Galdamez on 01/16/2024. If he remains undecided I will see him back in 3 weeks for reevaluation to include labs and scans. Campuzano's transformation Campuzano's 2. Acquired hypothyroidism - ICD9: 244.9, ICD10: [...] indicated. Michael Boykin MD documented in this encounter [facility] 01-05-2024 Note [facility] 01-05-2024 History of Present illness Narrative Images from the original note were not included. 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 At time of diagnosis he had a lot of SOB given location of the disease. He was treated with six cycles of CHOP (+/- rituximab, OS records mention R but he does not recall this) followed by radiation to his chest. He did well with therapy and achieved a complete remission. March 2023: Noticed lump on his leg prompting evaluation which led to biopsy and imaging. This was an incisional biopsy. The pathology was read as DLBCL at [facility]. Apr 2023: PET/CT with FDG avid lymphadenopathy above and below the diaphragm with bulky disease in abdomen and pelvis. May 2023: Came to [facility] for consultation. [facility] read this biopsy as FL, grade 3A. Given prior anthracycline and [facility] reading FL the tumor board consensus was to proceed with BR x 6 cycles. INTERVAL HISTORY: Katia Shaikh and his return for follow up given progression of disease. They seem angry and withdrawn when I enter the room. They explain they are angry because they never received a copy of the path report from [facility] and they thing [facility] was wrong and that he received the wrong therapy. I stated the report was released to My Chart and if they did not feel comfortable seeing me that I could refer to a colleague or another institution. They stated they would continue the visit. Mr. Shaikh states he did fine with the chemotherapy. No significant issues. He completed cycle 6 of BR . He states he could feel the inguinal LN increasing prior to the end of therapy. He underwent an excisional LN biopsy. No fevers, drenching night sweats, unintentional weight loss. No enlarged lymph nodes. 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 PHYSICAL EXAM: VS: BP 139/80 Pulse 93 Temp 36.2 C (97.1 F) (Oral) Resp 15 Ht 177.8 cm (5' 10 ) Wt 83.7 kg (184 lb 8.4 oz) SpO2 96% BMI 26.48 kg/m ECO- Fully active, able to carry on all pre-disease performance w/o restriction. GENERAL: Awake, alert, no acute distress PYSCH: Alert and oriented. HEENT: EOMI. Anicteric sclerae. PERRL. Moist mucous membranes without lesions. Neck supple. LYMPH NODES: There is no cervical, axillary, supraclavicular. Well healed incision with firm lump underneath. HEART: Regular rate and rhythm, no murmurs, rubs, or gallops. LUNGS: Clear to auscultation bilaterally, no wheezes or crackles. ABDOMEN: +BS, Soft, nondistended, nontender. No hepatosplenomegaly MSK: Grossly intact ROM. EXTREMITIES: No edema NEURO: CN II-XII grossly intact, normal gait. SKIN: No rashes or other lesions. DATA REVIEWED: PET/CT 09/23/2023 IMPRESSION:Most of the previously present hypermetabolic lymphadenopathy is regressed/resolved. residual hypermetabolic right inguinal lymph node 1. Neck: No suspicious hypermetabolic foci 2. Chest: No evidence of FDG avid neoplastic process 3. Abdomen and pelvis: residual hypermetabolic right inguinal lymph node 4. Skeleton: No hypermetabolic osseous lesions. Deauville Criteria score : 4 PET/CT 11/18/2023 IMPRESSION: Since 09/23/2023, HEAD/NECK: * No FDG avid neoplastic process. CHEST: * Focal uptake at the distal esophagus is likely physiologic or inflammatory, for example related to reflux esophagitis. Clinical correlation is recommended. ABDOMEN/PELVIS: * A right inguinal lymph node has increased in size and FDG avidity. * Focal, intense uptake at the distal sigmoid colon is not substantially changed. Although this is nonspecific and may be benign or physiologic, bowel lymphomatous involvement is also a consideration. Continued close attention on follow-up imaging versus further evaluation with colonoscopy is recommended. BONES/SOFT TISSUES: * No suspicious FDG avid osseous lesion. Deauville score: 5 OSH PATH REPORT [facility] REVIEW OF PATH 12/24/2023 FINAL DIAGNOSIS Outside slides from [facility], [place], [place], labeled [id number], collected 12/17/2023: A-B. Right inguinal lymph node, excisional biopsies: -Aggressive large B-cell lymphoma, favor germinal center immunophenotype Diagnosis Comment The combined morphologic and immunophenotypic findings demonstrate involvement by a diffuse aggressive large B-cell lymphoma. Due to issues with fixation, Landry algorithm immunophenotyping may be unreliable. FISH studies are pending. The history of follicular lymphoma, grade 3A is noted. Correlation of the clinical findings is suggested. Flow cytometry identifies an abnormal B-cell population, identifies an abnormal B-cell population, representing 90% of events, positive for CD10 (dim), CD19, CD20 (variable), and monotypic kappa surface immunoglobulin. Laboratory Developed Test (LDT) Disclaimer: Performance characteristics of immunohistochemical, immunofluorescent and chromogenic in-situ hybridization tests have been determined by the performing laboratory within [facility] s [facility] Pathology and Laboratory Medicine [place] ([facility], [facility], [facility], [facility], [facility], [facility], or [facility]) in a manner consistent with CLIA requirements. One or more of these tests have not been cleared or approved by the FDA. [facility] is regulated under CLIA as qualified to perform high-complexity testing. These tests are used for clinical purposes. They should not be regarded as investigational or for research. Positive and negative controls stain appropriately. Microscopic Description Histologic sections demonstrate multiple sections of effaced lymph node by a diffuse proliferation of large, somewhat ovoid transformed lymphocytes with multiple nucleoli. Immunohistochemistry performed on block A5 is reviewed. The lymphoma cells are positive for CD20, PAX5, CD43, and Bcl-2, and demonstrate a Ki-67 proliferative index of 70-80%. CD10 and BCL6 each stain on small minor subset of the lymphocytes in the best preserved areas. CD5 is negative. CD21 and CD23 do not highlight follicular dendritic cell meshworks. CD30, CD138, and cyclin D1 are negative. CD3 stains the T cells. Additional immunohistochemistry is performed on deeper sections of tissue block A5 at [facility]. The lymphoma cells are positive for CD10 (minor subset, in the best preserved area) and MUM1, and are negative for MYC, S100, and JAVID by in situ hybridization. ASSESSMENT AND PLAN: Katia Shaikh is a 68 year old man who presents for follow up given recent progression. His history is detailed above. Briefly, he was diagnosed with DLBCL arising from FL in 2001 and was treated with CHOP (+/-R) and XRT. He developed diffuse/bulky lymphadenopathy last year and incisional biopsy was read as DLBCL at [facility] but when reviewed by [facility] including the hematopathology consensus conference, it was read as FL, grade 3A. I explained this review was released into [employer] and I also provided a copy for them. His case was presented at Tumor Board and given prior anthracycline and FL read the recommendation was BR x 6 cycles. His EOT PET/CT in November showed resolution of lymphadenopathy with the exception of the right inguinal LN which was 4.3 x 3.5 and increased from his interim PET/CT. He has undergone excisional LN biopsy and this is DLBCL. He has seen Radiation Oncology. I explained that radiation alone is not curative and risk for progression following this is high. Given that he is so fit without co-morbidities, I recommend CAR T-cell therapy as definitive management for the DLBCL. I explained the logistics and r/b of this therapy including the visits required to [facility] and follow up restrictions including no driving for 8 weeks. I do not recommend chemotherapy alone in this situation given his lymphoma history and eligibility for therapies such as CAR T. I provided hand outs of CAR T to him. We will reconvene via phone to determine his decision. Niesha Galdamez MD Associate Staff Physician [facility] [address] [place] [address] Pager: [phone] CC: Michael Boykin ([facility]) [address] [place] [address] [place] [address] . documented in this encounter [facility] 01-05-2024 Nurse Note Additional intake questions: Has the patient had fever, nausea, vomiting, diarrhea, constipation, fatigue for > 1 week? Yes, constipation (day of last BM 01/05/24) Does the patient have a decreased appetite? No Does patient want to see a Mathematics Professor? No (yes to any of above refer patient to schedulers for dietitian appointment) ) Does patient have any new or increased numbness or tingling of extremities? No Is patient interested in fertility information? No Does patient need any prescription refills? No Does patient have an advanced directive in place? No, Patient referred to [facility] documented in this encounter [facility] 12-30-2023 Note [facility] 12-30-2023 History of Present illness Narrative Radiation Oncology - New Patient/Consult Note PATIENT NAME: Katia Shaikh PATIENT REQUESTING PROVIDER: Dr. Boykin DIAGNOSIS: Non-Hodgkin's lymphoma, initially diagnosed and treated as stage III diffuse large B cell 2001. Patient was found to have recurrence bilateral inguinal region, pathology described as follicular grade 3 lymphoma HPI: 68 year old male who presents with above diagnosis, for an opinion regarding the role of radiation therapy in the management of the patient's disease. Final recommendations will be communicated back to the requesting physician by way of the shared medical record, or letter to requesting physician via US mail. Patient has history of diffuse large B-cell lymphoma, stage III initially diagnosed 2001. Presented with right inguinal adenopathy and underwent treatment including R-CHOP x 6 and radiation to the chest in July 2002. It was found to have a complete response at that time. Patient had done very well without issues however in March of this year he presented with new problem of masses within each groin. Workup included PET scan 04/24/2023 which demonstrated bilateral enlarged axillary lymph nodes with significant metabolic activity, as well as bulky adenopathy within the retrocrural space, periaortic retroperitoneal area, both internal and external iliac chains extending to the inguinal areas bilaterally. Bulky is within the iliac and inguinal area. He underwent right inguinal lymph node excision on 05/07/2023, pathology demonstrating diffuse large B-cell lymphoma. Secondary pathology review [facility]: FINAL DIAGNOSIS Outside slides ([id number], 05/07/2023), [place], [place] Right inguinal lymph node, excisional biopsy: - Follicular lymphoma, grade 3A (see comment). Underwent systemic therapy consisting of Bendamustine plus Rituxan . PET scan 09/23/2023 demonstrating only small residual uptake within the right inguinal area. He went on to complete 6 cycles of chemotherapy, follow-up scan in November revealing increasingly avid area of uptake within the right inguinal lymph node region. No other evidence of disease. He underwent biopsy of this lymph node on 12/17/2023 pathology pending. He is here today to discuss potential radiation in the management of disease. ALLERGIES Allergen Reactions Allopurinol Rash Current Outpatient Medications on File Prior to Visit Medication Sig collagen, hydrolysate, bovine, (COLLAGEN, HYDR, [...] by mouth once daily. Current Facility-Administered Medications on File Prior to Visit Medication perflutren lipid microspheres 1.3 mL in NaCl (PF) 0.9% 10 mL injection (DEFINITY) sodium chloride 0.9 % (flush) 10 mL (BD POSIFLUSH) PAST MEDICAL HISTORY Diagnosis Date Diffuse large B cell lymphoma (HCC) 05/2023 Follicular lymphoma (HCC) GERD (gastroesophageal reflux disease) History of chemotherapy 2001 Diffuse large B cell Lymphoma History of radiation therapy 2001 Diffuse large B cell lymphoma History of thoracentesis Hypothyroidism Prior radiation therapy, collagen vascular disease, or inflammatory bowel disease: Prior thoracic radiation for lymphoma Any implanted or external electric devices? No PAST SURGICAL HISTORY Procedure Laterality Date PAST SURGICAL HISTORY OF Bronchoscopy PAST SURGICAL HISTORY OF Thoracentesis FAMILY HISTORY Problem Relation Age of Onset Melanoma Father Cancer Maternal Grandfather Leukemia Paternal Grandfather Pancreatic Cancer Paternal Aunt Renal Cell Cancer Paternal Aunt Social History Tobacco Use Smoking status: Former Packs/day: 1.00 Years: 35.00 Additional pack years: 0.00 Total pack years: 35.00 Types: Cigarettes Quit date: 2009 Years since quittin.1 Passive exposure: Past Smokeless tobacco: Never Substance Use Topics Alcohol use: Yes Comment: beer occ Drug use: Never COMPLETE REVIEW OF SYSTEMS: GENERAL: feeling well without fatigue, no recent change in weight NECK: denies swelling or pain in neck RESPIRATORY: no cough, no wheezing or shortness of breath CARDIOVASCULAR: no chest pain, no palpitations GI: normal appetite, tolerating PO well, BMs normal, and no abdominal pain : urination is normal MUSCULOSKELETAL: denies any painful or swollen joints, no muscle aches SKIN: no rash NEURO: no numbness or paresthesias and no weakness of the extremities As noted in HPI PHYSICAL EXAM: VS: BP 116/81 Pulse 89 Temp 36.9 C (98.5 F) Resp 16 Wt 84.8 kg (186 lb 15.2 oz) SpO2 97% BMI 26.32 kg/m Is the patient having any pain? No 0 on a scale of 0 to 10 KPS: 100 General Appearance: Alert and oriented. No acute distress. RADIOLOGY/LABORATORY DATA: see HPI ASSESSMENT AND PLAN: Non-Hodgkin's lymphoma with recurrence and persistent disease after initial chemotherapy. Patient is still being evaluated for further management options. At this time further systemic therapy, possible CAR-T cell is being considered. Certainly there may be a role for consolidative radiation depending on further treatment and response. Patient will continue to follow with Dr. Boykin and Dr. Galdamez at [facility] regarding this. Signed by: Viviana Varela MD cc: To use this Smartlink, specify the provider ID whose address you want to display, e.g., .PROVADDR[1 (where 1 is the provider ID). Michael Boykin ([facility]) [address] [place] [address] [place] [address] documented in this encounter [facility] 12-30-2023 Nurse Note Pacemaker/Defibrillator?N Previous Cancer(s)?NHL dx'd ~ 22 years ago Previous Radiation?Y -chest 22 years ago Lupus/Scleroderma?N On body monitoring device?N documented in this encounter [facility] 12-29-2023 Miscellaneous Notes Jonathan Hanson I called [facility] and spoke with Malu and scheduled patient for Virtual Visit with Dr Galdamez on 01/15 @ 8:00 AM per messages below from Dr Galdamez and our provider Dr. Michael Boykin. I just called and spoke with patient and he is not able to do Virtual visit and states he does not want to schedule as an in person visit, as he is not willing to travel. Patient is requesting to schedule this appointment as a phone call visit. Would Dr Galdamez be agreeable to schedule this appointment as a phone visit? Please advise and we will call both scheduling [phone] to reschedule and call patient back as well with information regarding this appointment. Thank you for your time and help with getting this patient scheduled. Fabi Wong Clerical: Pt will need to see Dr Galdamez @ [facility] to discuss potential treatment options. This may be a virtual visit. Please schedule and contact pt w/ the appointment. Ivania Jackman, RN Images from the original note were not included. Michael Boykin MD Winter, Allison, MD; Ivania Jackman, RN Thanks for getting back to me. I meant to call to discuss, but was out of town. He definitely would be agreeable to a virtual visit, and we did request that the slides be sent for [facility] review. When I return on Friday I will ask our nurse navigator to set up the visit. Will hold off on XRT unless he needs something for palliation. Michael Lawrence Previous Messages ----- Message ----- From: Niesha Galdamez MD Sent: 12/26/2023 3:21 PM EST To: Michael Boykin MD; Viviana Varela MD Wow, he did not get that much mileage out of BR which is very concerning. I would hold of on XRT. Would consider CAR T or bispecific. Would he be okay with VV with me? Did slides get sent here? ----- Message ----- From: Michael Boykin MD Sent: 12/25/2023 10:14 PM EST To: Viviana Varela MD; Niesha Galdamez MD documented in this encounter [facility] 12-25-2023 Note [facility] 12-25-2023 History of Present illness Narrative PATIENT NAME: Katia Shaikh DATE: 12/25/2023 PRIMARY CARE PHYSICIAN: No PCP OTHER PHYSICIANS: Dr. Rivera, Dr. Emelia Gonzalez ([facility]), Dr. Niesha Galdamez Portions of this encounter note have been copied from the note from 11/20/2023 and has been updated where appropriate, and reflect my current medical decision making from today. CC: This is a 68 year old male with recurrent lymphoma, seen for scheduled follow-up. INTERIM HISTORY: Since the patient's last visit here he underwent a repeat excisional biopsy of his recurrent right inguinal lymph node on 12/17/2023. As expected, pathology again confirmed non-Hodgkin lymphoma. However, the specific subtype was not delineated. Clinically the patient feels well. He has had no recurrent fevers, night sweats, or weight loss. No unusual pain. He has mild discomfort in the right inguinal area at the recent surgical site, otherwise no complaints. MEDICATIONS: Current Outpatient Medications Medication Sig collagen, [...] paralysis, seizures or tremors. PHYSICAL EXAM: BP 141/82 Pulse 88 Temp 36.5 C (97.7 F) (Temporal) Resp 16 Ht 179.5 cm (5' 10.67 ) Wt 84.2 kg (185 lb 10 oz) SpO2 98% BMI 26.13 kg/m ECOG 0 Exam limited to gross [...] skin without rash, lesions, wounds or petechiae. Palpable right inguinal lymph node/cyst 4 cm. Firm to palpation. PATHOLOGY: 12/17/2023 [place] [facility] Mature B-cell non-Hodgkin lymphoma [facility] Pathology: Pending 05/07/2023 Right inguinal lymph node biopsy [facility]: Diffuse large B-cell lymphoma [facility] Pathology: Follicular lymphoma, grade 3A Comment: The histologic and immunophenotypic findings demonstrate 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 Definitive areas of diffuse large B-cell lymphoma are not identified. LABS: Hemoglobin (g/dL) Date Value 12/25/2023 14.1 Hematocrit (%) Date Value 12/25/2023 40.3 WBC (k/uL) Date Value 12/25/2023 5.59 Platelet Count (k/uL) Date Value 12/25/2023 216 RADIOLOGY/OTHER STUDIES: 11/18/2023 PET scan IMPRESSION: Since 09/23/2023, HEAD/NECK: * No FDG avid neoplastic process. CHEST: * Focal uptake at the distal esophagus is likely physiologic or inflammatory, for example related to reflux esophagitis. Clinical correlation is recommended. ABDOMEN/PELVIS: * A right inguinal lymph node has increased in size and FDG avidity. * Focal, intense uptake at the distal sigmoid colon is not substantially changed. Although this is nonspecific and may be benign or physiologic, bowel lymphomatous involvement is also a consideration. Continued close attention on follow-up imaging versus further evaluation with colonoscopy is recommended. BONES/SOFT TISSUES: * No suspicious FDG avid osseous lesion. Deauville score: 5 09/23/2023 PET scan IMPRESSION:Most of the previously present hypermetabolic lymphadenopathy is regressed/resolved. residual hypermetabolic right inguinal lymph node 1. Neck: No suspicious hypermetabolic foci 2. Chest: No evidence of FDG avid neoplastic process 3. Abdomen and pelvis: residual hypermetabolic right inguinal lymph node 4. Skeleton: No hypermetabolic osseous lesions. Deauville Criteria score : 4 04/24/2023 PET scan ([facility]) Above the diaphragm the patient has significant [...] increasing bilateral inguinal adenopathy. PET scan 04/24/2023 revealed diffuse areas of lymphadenopathy consistent with recurrent lymphoma. On 05/07/2023 he underwent an incisional biopsy of a right inguinal lymph node at [facility]. Initial pathology per [facility] consistent with diffuse large B-cell lymphoma. However, on review per [facility] pathology it was felt to be consistent with follicular grade 3 lymphoma rather than diffuse large B-cell lymphoma. He was seen by Dr. Galdamez at [facility], and recommendations were to proceed with chemotherapy consisting of Bendamustine plus Rituxan x 6 cycles. BR cycle 1 started 06/10/2023 and the patient tolerated it well. Shortly after starting chemotherapy his back pain and palpable adenopathy resolved. He completed cycle 4 on 09/03/2023. Follow-up PET scan 09/23/2023 revealed persistent small uptake in the right inguinal area, otherwise complete resolution of all adenopathy. BR cycle 6 completed 10/29/2023. Follow-up PET scan 11/18/2023 revealed an increasing FDG avid lesion in the right inguinal area, otherwise no evidence of disease. On 12/17/2023 the patient underwent excisional biopsy of the right inguinal node, and once again pathology confirmed non-Hodgkin's lymphoma. However, the subtype was not delineated. Options for management were discussed at length with patient and his . We have referred his recent lymph node biopsy to [facility] pathology for their evaluation. If the node is consistent with a follicular lymphoma we will confer with [facility] hematology options for management which would include third line chemotherapy versus involved field radiation. Will also refer to radiation oncology for their considerations. Return in 2 weeks for follow-up. 2. Acquired [...] indicated. Michael Boykin MD documented in this encounter [facility] 12-22-2023 Miscellaneous Notes Sent for path to be sent. Pt's lymph node biopsy was positive for NHL B-Cell Lymphoma. Dr Boykin would like pt's path sent to [facility] for review. Pt notified of the above and verbalizes understanding. BRM/Clerical: Path Review order pended. Ivania Jackman RN documented in this encounter [facility] 12-18-2023 Hospital Discharge instructions Follow Up Care 12/18/2023 10:34:54 With:MIGUEL LOFTON, TERRELL Kirk Address: [address] [place] [id number] When: only if needed General Surgery Annmarie 12-15-2023 Miscellaneous Notes Roverto is scheduled to have his bx on Fri12-17-23. Rescheduled his follow up with you from 12-16 to 12-25. This is just an FYI. Please let me know if you need to see him prior to his bx. documented in this encounter [facility] 12-09-2023 Note Chief Complaint consultation for right [...] Not Given Patient (more content not included)... [facility] Comment on above: Result Comment: Elec tronically Signed By: MIGUEL LOFTON, Chiquita Mas\Date and Time Signed: 12/09/23 18:51 EST 11-20-2023 Note HNO ID: [id number] Author: MARLEE HARPER RN Service: ? Author Type: Registered Nurse Type: Progress Notes Filed: 11/20/2023 13:34 Note Text: Labs drawn on Friday with PET scan, no labs ordered for today and patient will see Dr. Boykin [facility] 11-20-2023 Note [facility] 11-18-2023 Note [facility] 11-18-2023 Note [facility] 10-28-2023 Note [facility] 10-24-2023 Evaluation note Diagnosis 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 documented in this encounter [facility]12-21-2023 Miscellaneous Notes* Telephone Encounter - Sherri Lam - 10/23/2023 10:05 AM EST Patient has an appt on 10/28. Would you like labs? [facility] note* Diagnosis 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 documented in this encounter [facility]* Diagnosis 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) documented in this encounter [facility]11-28-2023 Evaluation note* Diagnosis 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 documented in this [facility]* Diagnosis 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 documented in this encounter [facility] History of Present illness Narrative* Michael Boykin MD - 09/02/2023 6:50 AM EDT PATIENT NAME: Katia Shaikh DATE: 09/02/2023 PRIMARY CARE PHYSICIAN: No PCP OTHER PHYSICIANS: Dr. Rivera, Dr. Emelia Gonzalez ([facility]), Dr. Niesha Galdamez Portions of this encounter [...] PATHOLOGY: 05/07/2023 Right inguinal lymph node biopsy [facility]: Diffuse large B-cell lymphoma [facility] Pathology: Follicular [...] 09/02/2023 160 RADIOLOGY/OTHER STUDIES: 04/24/2023 PET scan ([facility]) Above the diaphragm the patient has significant [...] of a right inguinal lymph node at [facility]. Initial pathology per [facility] consistent with diffuse large B-cell lymphoma. However, on review per [facility] pathology it was felt to be consistent with follicular grade 3 lymphoma rather than diffuse large B-cell lymphoma. Hewas seen by Dr. Galdamez at [facility], and recommendations were to proceed [...] indicated. Michael Boykin MD [facility] Evaluation note* Diagnosis 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 documented in this encounter [facility]10[facility]23 Reason for referral (narrative)* Diagnostic Procedure Only (Routine) - Authorized Specialty Diagnoses / Procedures Referred By Sergio astorga Referred To Contact MOLECULAR & FUNCTIONAL IMAGING Diagnoses 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) Procedures NM PET/CT SKULL-THIGH SUBSEQUENT PET IMAGING CT ATTENUATION SKULL BASE MID-THIGH Michael Boykin MD [address] [place] [address] [place] [address] Molecular & Functional Imaging [address] [place] [address] Referral ID Status Reason Start Date Expiration Date Visits Requested Visits Authorized [id number] Authorized Auto-Generat ed Referral 3 10/01/2024 1 1 [facility]10[facility]09[facility]19[facility]23 History of Present illness Narrative* Leslie Stark, STEVE - 07/22/2023 9:02 AM EDT No blood return from port. Repositioned needles 2 additional times. Clearly felt port wall against needle all 3 times. Mulptiple positions tried to get blood return with no return. Flushing easily; no pain. No swelling at port. Pt can not stay for cathflo today. Peripheral draw performed. documented in [facility] Evaluation note* Diagnosis 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) documented in this encounter [facility]09-06-2023 Evaluation note* Diagnosis 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 History of diffuse large B-cell lymphoma Acquired hypothyroidism Unspecified hypothyroidism documented in this encounter [facility]09-[facility] Evaluation note* Diagnosis 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 documented in this encounter [facility] History of Present illness Narrative* Michael Boykin MD - 07/08/2023 6:55 AM EDT PATIENT NAME: Katia Shaikh DATE: 07/08/2023 PRIMARY CARE PHYSICIAN: No PCP OTHER PHYSICIANS: Dr. Rivera, Dr. Emelia Gonzalez ([facility]), Dr. Niesha Galadmez Portions of this encounter note have been [...] PATHOLOGY: 05/07/2023 Right inguinal lymph node biopsy [facility]: Diffuse large B-cell lymphoma [facility] Pathology: Follicular [...] 07/08/2023 146 RADIOLOGY/OTHER STUDIES: 04/24/2023 PET scan ([facility]) Above the diaphragm the patient has significant [...] of a right inguinal lymph node at [facility]. Initial pathology per [facility] consistent with diffuse large B-cell lymphoma. However, on review per [facility] pathology it was felt to be consistent with follicular grade 3 lymphoma rather than diffuse large B-cell lymphoma. Hewas seen by Dr. Galdamez at [facility], and recommendations were to proceed [...] indicated. Michael Boykin MD documented in [facility] Evaluation note* Diagnosis 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) documented in this encounter [facility]08-30-2023 Miscellaneous Notes* Telephone Encounter - Ivania Jackman, STEVE - 07/02/2023 2:53 PM EDT TOXICITY CHECK [...] week. Ivania Jackman RN documented in this encounterMount [facility]08-[facility]23 Miscellaneous Notes* Telephone Encounter - Fifi Sommers RN - 06/27/2023 11:43 AM EDT Pt notified that both scripts were sent to [facility]. Pt states he's not sure that the [...] Use as directed. Authorizing Provider: CLEO FELIZ APRN.ARCADE GAME TECHNICIAN * Telephone Encounter - Fifi Sommers RN - 06/27/2023 11:19 AM EDT Pt was taken off of prednisone on Friday. Pt states this was a taper and was instructed to stop . Please advise Fifi Sommers RN * Telephone Encounter - Cleo Feliz APRN.MIRACLE - 06/27/2023 10:44 AM EDT Is patient still taking prednisone 20 mg daily? The following approved medication requests have been transmitted electronically. Requested Prescriptions Signed Prescriptions Disp Refills triamcinolone acetonide (KENALOG) 0.1 % cream 454 g 1 Sig: Apply to affected area twice daily. Authorizing Provider: CLEO FELIZ APRN.ARCADE GAME TECHNICIAN * Telephone Encounter - Fifi Sommers RN [...] advise Fifi Sommers RN documented in this encounter[facility]23 Miscellaneous Notes* Telephone Encounter - Ivania Jackman [...] rash worsens we can phone in a Medrol Dosepak. * Telephone Encounter - Ivania Jackman [...] well. Ivania Jackman RN documented in this encounterMount [facility]08-[facility] History of Present illness Narrative* Mindi [...] 19, 2023 10:30 AM documented in this encounterMount [facility]el [facility]08-17-2023 [facility] Evaluation note* Diagnosis 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) documented in this encounter [facility]08-10-2023 Miscellaneous Notes* Telephone Encounter - Fifi Sommers [...] back Fifi Sommers RN documented in this encounterMount [facility]08-[facility]-2023 Evaluation note* Diagnosis 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 documented in this encounter [facility] Evaluation note* Diagnosis 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 documented in this encounter [facility]08-04-[facility]23 Miscellaneous Notes* Telephone Encounter - Cleo Feliz APRN.MIRACLE - 06/06/2023 4:20 PM EDT The following [...] hours as needed. Authorizing Provider: CLEO FELIZ APRN.ARCADE GAME TECHNICIAN * Telephone Encounter - Ivania Jackman RN - 06/06/2023 3:19 PM EDT Pt requesting his antiemetics be sent to [facility]. States that he can get them cheaper there using a Good RX coupon. Cleo: Script pended. Ivania Jackman RN documented in this encounterMount [facility]08-04-[facility] Miscellaneous Notes * Telephone Encounter - Ivania aJckman RN - 06/06/2023 11:39 AM EDT Pt notified and verbalizes understanding. Ivania Jackman RN * Telephone Encounter - Cleo Feliz APRN.CNP - 06/06/2023 8:59 AM EDT The following approved medication requests have been transmitted electronically. Requested Prescriptions Signed Prescriptions Disp Refills allopurinol (ZYLOPRIM) 300 mg tablet 30 tablet 1 Sig: Take 1 tablet by mouth once daily. Authorizing Provider: CLEO FELIZ APRN.CNP * Telephone Encounter - Ivania Jackman RN [...] at least 1 month. documented in this encounterMount [facility]08-[facility]-2023 Evaluation note* Diagnosis 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 History of diffuse large B-cell lymphoma Acquired hypothyroidism Unspecified hypothyroidism documented in this encounter [facility]08-[facility]23 Miscellaneous Notes* Telephone Encounter - Cleo Feliz [...] hours as needed. Authorizing Provider: CLEO FELIZ APRN.ARCADE GAME TECHNICIAN * Telephone Encounter - Ivania Jackman RN - 06/05/2023 4:07 PM EDT Pt will be in tomorrow for education (Rituxan, Treanda) Scripts for antiemetics pended. Ivania Jackman RN documented in this encounterMount [facility]08-03-2023 [facility] History of Present illness Narrative* Michael Boykin MD - 06/05/2023 8:10 AM EDT PATIENT NAME: Katia Shaikh DATE: 06/05/2023 PRIMARY CARE PHYSICIAN: No PCP OTHER PHYSICIANS: Dr. Rivera, Dr. Emelia Gonzalez ([facility]), Dr. Niesha Galdamez Portions of this encounter note have been copied from my note from 05/22/2023 and has been updated where appropriate, and reflect my current medical decision making from today. CC: This is a 67 year old male with recurrent lymphoma, seen for scheduled follow-up. INTERIM HISTORY: Since the patient's last visit here his recent lymph node biopsy was reviewed by [facility] pathology, and it was felt to be consistent with follicular grade 3 lymphoma rather than diffuse large B-cell lymphoma. He was seen by Dr. Galdamez at [facility], and recommendations were to proceed with chemotherapy consisting of Bendamustine plus Rituxan x6 cycles. In preparation for chemotherapy the patient underwent port placement by Dr. Rivera, and he tolerated the procedure well. Over [...] PATHOLOGY: 05/07/2023 Right inguinal lymph node biopsy [facility]: Diffuse large B-cell lymphoma [facility] Pathology: Follicular [...] 06/05/2023 334 RADIOLOGY/OTHER STUDIES: 04/24/2023 PET scan ([facility]) Above the diaphragm the patient has significant [...] of a right inguinal lymph node at [facility]. Initial pathology per [facility] consistent with diffuse large B-cell lymphoma. However, on review per [facility] pathology it was felt to be consistent with follicular grade 3 lymphoma rather than diffuse large B-cell lymphoma. Hewas seen by Dr. Galdamez at [facility], and recommendations were to proceed with chemotherapy consisting of Bendamustine plus Rituxan x 6 cycles. In preparation for chemotherapy the patient underwent port placement by Dr. Rivera. Clinically the patient has had increasing pain [...] dosage accordingly. Michael Boykin MD CC: Dr. Rivera, Dr. Emelia Gonzalez ([facility]) documented in this encounterMount Carmel Health System07-31-2023 Miscellaneous Notes* Telephone Encounter - Corinne Ragland [...] of beginning treatment. Pt has appt with BRJemima , but is having pain in swollen lymph nodes and difficulty sleeping at night. Asking for medication, if possible to help, until treatment begins. 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 No answer to left detailed message. Niesha Galdamez MD Date: June 01, 2023. documented in this encounterMount Carmel Health System07-25-2023 NoteHarrison [facility]07-[facility]-2023 Nurse Note* Rosa Elena Lazaro RN - 05/27/2023 2:51 PM EDT Additional intake questions: Has the patient had fever, nausea, vomiting, diarrhea, constipation, fatigue for > 1 week? No Does the patient have a decreased appetite? No Does patient want to see a Mathematics Professor? No (yes to any of above refer [...] Rosa Elena Lazaro RN documented in this encounterMount Carmel Health System07-25-2023 History of Present illness Narrative* Niesha Galdamez MD - 05/27/2023 2:43 PM EDT Images from the original note were not included. [facility] DEPARTMENT OF HEMATOLOGY AND MEDICAL ONCOLOGY REASON [...] decided to establish with Dr. Boykin at [facility].He does have some fatigue and just minimal weight loss of about five pounds is otherwise feeling well. No fevers, drenching night sweats, unintentional weight loss. No enlarged lymph nodes. PAST MEDICAL HISTORY: DLBCL arising from [place] Hypothyroidism PAST SURGICAL HISTORY: LN biopsy Bronchoscopy Thoracentesis FAMILY HISTORY: No family history of cancer SOCIAL HISTORY: Lives in [place], [place] to Jennifer who is present today Retired from [employer] Likes car racing with his son Previous smoker [...] mL (BD POSIFLUSH) 10 mL INTRAVENOUS DIRECTED Michael Herrera MD CURRENT ALLERGIES: ALLERGIES No Known Allergies [...] Lymph 1.00 - 4.00 k/uL 0.69 (L) [place]% % 11.5 Abs [place] <0.87 k/uL 1.11 (H) Eosin% % 2.8 [...] Last Resulted: 04/24/23 7:12 PM Received From: [facility] Result Received: 05/01/23 10:37 AM ASSESSMENT AND PLAN: Katia Shaikh is a 67 year old man who [...] needed. Niesha Galdamez MD Associate Staff Physician [address] [place] [place] [place] [address] Pager: [phone] CC: Michael Boykin (Gala) [address] [place] [address] [place] [address] . ADDENDUM: Case presented at tumor board and pathologist explained that [facility] Path review shows follicular lymphoma grade 3A and NOT DLBCL. Outside slides ([id number], 05/07/2023), [place], [place] Right inguinal lymph node, excisional biopsy: - Follicular lymphoma, grade 3A (see comment). JRC/NB 05/30/2023 Diagnosis Comment The histologic and immunophenotypic [...] Dr. Ashutosh Galdamez MD documented in this encounterMount Carmel Health System07-24-2023 Miscellaneous Notes* Telephone Encounter - Fabi Freed - 05/26/2023 2:[address] Rivera office they received this referral and have patient scheduled with Dr. Rivera for portplacement on 05/28 @[facility]. Fabi Wong * Telephone Encounter - Leslie Mc - 05/26/2023 8:26 AM EDT Records faxed to Dr. Rivera. * Telephone Encounter - Fabi Freed - 05/26/2023 8:08 AM EDT Clara: Information ready for you. Fabi Wong * Telephone Encounter - Sandra Clifton - 05/23/2023 9:05 AM EDT Patient would like a referral to Dr. Rivera for a port placement. He is a known patient to Dr. Rivera and the doctor said he would do this for the patient. Thank you. documented in this encounterMount Carmel Health System07-20-2023 NoteHarrison Community Hospital07-20-2023 History of Present illness Narrative* Michael Boykin MD - 05/22/2023 8:17 AM EDT PATIENT NAME: Katia Shaikh DATE: 05/22/2023 PRIMARY CARE PHYSICIAN: No PCP OTHER PHYSICIANS: Dr. Rivera, Dr. Emelia Gonzalez ([facility]) Portions of this encounter note have been [...] PATHOLOGY: 05/07/2023 Right inguinal lymph node biopsy ([facility]) Diffuse large B-cell lymphoma LABS: Hemoglobin (g/dL) Date Value 05/13/2023 13.4 Hematocrit (%) Date Value 05/13/2023 42.3 WBC (k/uL) Date Value 05/13/2023 9.67 Platelet Count (k/uL) Date Value 05/13/2023 306 RADIOLOGY/OTHER STUDIES: 04/24/2023 PET scan ([facility]) Above the diaphragm the patient has significant [...] of a right inguinal lymph node at [facility]. Pathology revealed diffuse large B-cell lymphoma. Currently [...] his recent biopsy to be reviewed at [facility]. Unfortunately, his initial biopsy from 2001 is not available for review. He will be referred to [facility] lymphoma division for specific recommendations. [...] dosage accordingly. Michael Boykin MD CC: Dr. Rivera, Dr. Emelia Gonzalez ([facility]) documented in this encounterMount Carmel Health System07-19-2023 Miscellaneous Notes* Telephone Encounter - Ivania Jackman RN - 05/21/2023 3:24 PM EDT Per pt, his 2001 lymph node biopsy was done per Dr Rivera @ [facility]. Spoke w/ Claire in Medical Records. She reports that they only keep records for 10 years. They will not be able to retrieve pt's original path report. Ivania Jackman RN documented in this encounterMount Carmel Health System07-18-2023 Miscellaneous Notes* Telephone Encounter - Emma Mendoza - 05/20/2023 2:39 PM EDT Spoke to Alma Rosa at [facility], she has order and will call patient to schedule. * Telephone Encounter - Ivania Jackman RN - 05/19/2023 3:[address] Boykin, pt's LN biopsy was positive for DLBCL. Recommends we get an ECHO and port placed. Ronaldos to reach out to main campus doctor regarding treatment options. Pt notified and verbalizes understanding. Agrees to ECHO, but wishes to wait on port until he speaks w/ Dr at 's appointment. BRM: ECHO order pended. Clerical: Please schedule ECHO at [facility]. Pt would prefer an appointment next week if possible. Ivania Jackman RN documented in this encounterMount Carmel Health System07-14-2023 Miscellaneous Notes* Telephone Encounter - Gretchen Arora - 05/16/2023 9:51 AM EDT 2 nd opinion pathology requested from [facility] / [facility] to be sent to [facility] for review. documented in this encounterMount Carmel Health System07-11-2023 NoteHarrison Community Hospital07-11-2023 History of Present illness Narrative* Michael Boykin MD - 05/13/2023 8:16 AM EDT PATIENT NAME: Katia Shaikh DATE: 05/13/2023 PRIMARY CARE PHYSICIAN: No PCP OTHER PHYSICIANS: Dr. Rivera, Dr. Emelia Gonzalez ([facility]) HPI: This is a 67 year old [...] of a right inguinal lymph node at [facility]. Pathology currently pending. Currently the patient's main [...] PATHOLOGY: 05/07/2023 Right inguinal lymph node biopsy ([facility]) Pathology pending LABS: Hemoglobin (g/dL) Date Value 05/13/2023 13.4 Hematocrit (%) Date Value 05/13/2023 42.3 WBC (k/uL) Date Value 05/13/2023 9.67 Platelet Count (k/uL) Date Value 05/13/2023 306 RADIOLOGY/OTHER STUDIES: 04/24/2023 PET scan ([facility]) Above the diaphragm the patient has significant [...] of a right inguinal lymph node at [facility]. Pathology currently pending. Most likely the patient [...] dosage accordingly. Michael Boykin MD CC: Dr. Rivera, Dr. Emelia Gonzalez ([facility]) documented in this encounterMount Carmel Health System06-27-2023 NoteChief Complaint consultation for bilateral inguinal lymphadenopathy [facility] Staff 67 year old male presents on [...] Hypertension: Mother. Primary malignant neoplasm of skin: Father.[facility]:Result Comment: Electronically Signed By: MIGUEL LOFTON, Chiquita Mas\Date and Time Signed: 04/29/23 14:05 [id number] Miscellaneous Notes* Telephone Encounter - Darrell February - 08/04/2023 11:54 AM EDT Patient coming in Friday08/05/23 for follow up treatment. Please add labs orders. Thanks. Ceci Ramírez MA documented in [facility] encounterC[facility] + [facility] note No data available for this section General Surgery Annmarie Evalutaxve note* Diagnosis Non-Hodgkin's lymphoma, unspecified body region, unspecified non-Hodgkin lymphoma type (HCC) Hypothyroidism, unspecified type documented in this encounter [facility] Phone: evaluqposh note* Diagnosis Non-Hodgkin's lymphoma, unspecified body region, unspecified non-Hodgkin lymphoma type (HCC) Hypothyroidism, unspecified type documented in this encounter [facility] Phone: evalhdnbzs note* Diagnosis Non-Hodgkin lymphoma of lymph nodes of multiple regions, unspecified non-Hodgkin lymphoma type (HCC)- Primary Acquired hypothyroidism Unspecified hypothyroidism documented in this encounter [facility]* Diagnosis 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)- Primary documented in this encounter [facility] note* Diagnosis History of diffuse large B-cell lymphoma- Primary 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) 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) documented in this encounter [facility] note* Diagnosis 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) documented in this encounter [facility] note* Diagnosis Non-Hodgkin lymphoma of lymph nodes of multiple regions, unspecified non-Hodgkin lymphoma type (HCC)- Primary DE DIOS (dyspnea on exertion) Other dyspnea and respiratory abnormality documented in this encounter [facility] note* Diagnosis 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 [facility]* Diagnosis 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 [facility]* Diagnosis 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) documented in this encounter [facility]* Diagnosis Non-Hodgkin lymphoma of lymph nodes of multiple regions, unspecified non-Hodgkin lymphoma type (HCC)- Primary documented in this encounter [facility] note* Diagnosis Non-Hodgkin lymphoma of lymph nodes of multiple regions, unspecified non-Hodgkin lymphoma type (HCC) documented in this encounter [facility]* Diagnosis 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 Acquired hypothyroidism Unspecified hypothyroidism History of diffuse large B-cell lymphoma documented in this encounter [facility]* Diagnosis Follicular lymphoma grade IIIa, unspecified body region (HCC)- Primary documented in this encounter [facility]* Diagnosis 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 History of follicular lymphoma documented in this encounter [facility]* Diagnosis Non-Hodgkin lymphoma of lymph nodes of multiple regions, unspecified non-Hodgkin lymphoma type (HCC)- Primary 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) documented in this encounter [facility]* Diagnosis 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 documented in this encounter [facility]* Diagnosis Diffuse large B-cell lymphoma, unspecified body region [facility] Diagnosis High grade B-cell lymphoma (HCC)- Primary Other malignant lymphomas, unspecified site, extranodal and solid organ sites History of follicular lymphoma documented in this encounter [facility]* Diagnosis 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 History of follicular lymphoma 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) documented in this encounter [facility]* Diagnosis Personal history of diseases of blood and blood-forming organs Diffuse large B-cell lymphoma, unspecified body region (HCC) Encounter for monitoring cardiotoxic drug therapy Encounter for therapeutic drug monitoring 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) documented in this encounter [facility]* Diagnosis 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) Personal history of diseases of blood and blood-forming organs 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) documented in this encounter [facility] note* Diagnosis 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) documented in this encounter [facility]* Diagnosis 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)- Primary 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) documented in this encounter [facility] note* Diagnosis 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) documented in this encounter [facility] note* Diagnosis 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 History of follicular lymphoma documented in this encounter [facility] note* Diagnosis 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)- Primary documented in this encounter [facility] Discharge instructions No data available for this section General Surgery Narrative Progress note No data available for this section General Surgery Narrative Reason for referral (narrative)* Outpatient Procedure (Routine) - Pending Review Specialty Diagnoses / Procedures Referred By Contac t Referred To [facility] Diagnoses Non-Hodgkin lymphoma of lymph nodes of multiple regions, unspecified non-Hodgkin lymphoma type (HCC) DE DIOS (dyspnea on exertion) Procedures ECHO ECHO TTC R-T 2D W/WOM-MODE COMPL SPEC&COLR Michael Tillman MD [address] [place] [address] [place] [address] [facility] [address] [place] [id number] Referral ID Status Reason Start Date Expiration Date Visits Requested Visits Authorized [id number] Pending Review Auto-Generat ed Referral 05/19/2023 05/18/2024 1 1 [facility] for referral (narrative)* Diagnostic Procedure Only (Routine) - Authorized Specialty Diagnoses / Procedures Referred By Contac t Referred To Contact [facility] Diagnoses 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) Procedures NM PET/CT SKULL-THIGH SUBSEQUENT PET IMAGING CT ATTENUATION SKULL BASE MID-THIGH Niesha Galdamez MD [address] [place] [address] Molecular [facility] Functional [facility] [address] [place] [address] Referral ID Status Reason Start Date Expiration Date Visits Requested Visits Authorized [id number] Authorized Auto-Generat ed Referral 01/20/2024 02/18/2025 1 1 [facility] for referral (narrative)* Diagnostic Procedure Only (Routine) - Authorized Specialty Diagnoses / Procedures [facility] To Contact [facility] Diagnoses Diffuse large B-cell lymphoma, unspecified body region (HCC) Procedures NM PET/CT SKULL-THIGH SUBSEQUENT PET IMAGING CT ATTENUATION SKULL BASE MID-THIGH Niesha Galdamez MD [address] [place] [address] Molecular & Functional Imaging [address] [place] [address] Referral ID Status Reason Start Date Expiration Date Visits Requested Visits Authorized [id number] Authorized Auto-Generat ed Referral 02/18/2024 03/19/2025 1 1 * Consult, Test, Treat (Routine) - Authorized Specialty Diagnoses / Procedures [facility] Referred To Contact Diagnoses 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) Procedures TAUSSIG FOLLOW-UP OFFICE/OUTPATIENT NEW HIGH MDM 60 MINUTES Niesha Galdamez MD [address] [place] [address] Referral ID Status Reason Start Date Expiration Date Visits Requested Visits Authorized [id number] Authorized PCP Requested Referral 02/18/2024 02/17/2025 1 1 * Outpatient Procedure (Routine) - Authorized Specialty Diagnoses / Procedures Referred By Contac t Referred To [facility] Diagnoses 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) Encounter for monitoring cardiotoxic drug therapy Procedures ECHO ECHO TTHRC R-T 2D W/WOM-MODE COMPL SPEC&COLR D Niesha Galdamez MD [address] [place] [address] [address] Referral ID Status Reason Start Date Expiration Date Visits Requested Visits Authorized [id number] Authorized Auto-Generat ed Referral 02/18/2024 02/17/2025 1 1 * Outpatient Procedure (Routine) - Authorized Specialty Diagnoses / Procedures Referred By Sergio astorga Referred To Contact [facility] Diagnoses 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) Procedures ECG COMPLETE ECG ROUTINE ECG W/LEAST 12 LDS W/I&R Niesha Galdamez MD [address] [place] [address] [address] Referral ID Status Reason Start Date Expiration Date Visits Requested Visits Authorized [id number] Authorized Auto-Generat ed Referral 02/18/2024 02/17/2025 1 1 [facility] Assessments Diagnosis Non-Hodgkin's lymphoma, unspecified body region, unspecified non-Hodgkin lymphoma type (HCC) Hypothyroidism, unspecified type Encounter for screening for lung cancer Advance Directives No Advanced Directives Records FoundDocuments on File Type Date Recorded 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 Advance Directives and Living Will Power of Children'S Entertainer Documents on File Type Date Recorded 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 ACP-Advance Directive ACP-Power of Children'S Entertainer Summary Purpose Family History No Family History Records Found No data available for this section No Family History Records FoundNo Family History Records FoundNo Family History Records Found Reason for Referral Specialty Diagnoses / Procedures Referred By Sergio astorga Referred To Contact Diagnoses 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) Procedures CONSULT TO HEMATOLOGY/ONCOLOGY OFFICE/OUTPATIENT [facility] 60-74 MINUTES Michael Boykin MD [address] [place] [address] [place] [address] Referral ID Status Reason Start Date Expiration Date Visits Requested Visits Authorized [id number] Authorized PCP Requested Referral 05/22/2023 05/21/2024 1 [...] INTRAVENOUS, ONCE, 1 dose, On Fri06/11/23 at 0930, Refrigerate. New Bag/Syringe/Bottle 06/11/2023 9:21 AM EDT [...] ONCE, 1 dose, On Fri07/08/23 at 0930, EXP:145 Hazardous Chemotherapy Drug: Use appropriate PPE. Antineoplastic Irritant. Refrigerate. Product dispensed: BELRAPZO New Bag/Syringe/Bottle 07/08/2023 12:54 PM EDT 175.5 mg dexAMETHasone 10 mg in NaCl 0.9% 50 mL (DECADRON) 10 mg, INTRAVENOUS, ONCE, 1 dose, On Fri07/08/23 at 09, Refrigerate. New Bag/Syringe/Bottle 07/08/2023 9:35 AM EDT [...] ONCE, 1 dose, On Fri07/08/23 at 0930, EXP:07/09/23 Infuse at rate of 100mg/hr. If no [...] ONCE, 1 dose, On Fri07/09/23 at 0930, EXP:_1230 07/09/23 Hazardous Chemotherapy Drug: Use appropriate PPE. Antineoplastic [...] Records FoundNo Status Records FoundNo Status Records FoundNo Status Records Found INFORMATION SOURCE (unrecogn ized section and content) DATE CREATED AUTHOR 04/11/2023 [facility] DATE CREATED AUTHOR AUTHOR'S ORGANIZ ATION 01/30/2024 [facility] DATE CREATED AUTHOR AUTHOR'S ORGANIZ ATION 02/03/2024 [facility] DATE CREATED AUTHOR AUTHOR'S ORGANIZ ATION 03/12/2024 [facility] Patient Care team informatio n (unrecognized section and content) Blueprint Maker Relationship Specialty Start Date End Date Cleo Feliz, SHUTTLER.ARCADE GAME TECHNICIAN [address] [place] [address] Nurse Practitioner Hematology/Oncology 06/05/23 Michael Boykin MD [address] [place] [address] Physician Hematology/Oncology 06/05/23 Ivania Jackman, STEVE [address] [place] [place] [address] Specialty 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 Hematology/Oncology 06/05/23 Blueprint Maker Relationship Specialty Start Date End Date Cleo Feliz, SHUTTLER.ARCADE GAME TECHNICIAN [address] [place] [address] Nurse Practitioner Hematology/Oncology 06/05/23 Michael Boykin MD [address] [place] [address] Physician Hematology/Oncology 06/05/23 Ivania Jackman, RN [address] [place] [address] Specialty 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 Hematology/Oncology 06/05/23 Blueprint Maker Relationship Specialty Start Date End Date Cleo Feliz, SHUTTLER.ARCADE GAME TECHNICIAN [address] [place] [address] Nurse Practitioner Hematology/Oncology 06/05/23 Michael Boykin MD [address] [place] [place] [address] Physician Hematology/Oncology 06/05/23 Ivania Jackman, RN [address] [place] [address] Specialty 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 Hematology/Oncology 06/05/23 Blueprint Maker Relationship Specialty Start Date End Date Cleo Feliz, SHUTTLER.ARCADE GAME TECHNICIAN [address] [facility] [facility] [place] [address] Nurse Practitioner Hematology/Oncology 06/05/23 Michael Boykin MD [address] [place] [address] Physician Hematology/Oncology 06/05/23 Ivania Jackman, RN [address] [place] [address] Specialty 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 Hematology/Oncology 06/05/23 Blueprint Maker Relationship Specialty Start Date End Date Cleo Feliz, SHUTTLER.ARCADE GAME TECHNICIAN [address] [place] [address] Nurse Practitioner Hematology/Oncology 06/05/23 Michael Boykin MD [address] [facility] [place] [address] Physician Hematology/Oncology 06/05/23 Ivania Jackman, RN [address] [facility] [place] [address] Specialty 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 Hematology/Oncology 06/05/23 Blueprint Maker Relationship Specialty Start Date End Date Cleo Feliz, SHUTTLER.ARCADE GAME TECHNICIAN [address] [place] [place] [address] Nurse Practitioner Hematology/Oncology 06/05/23 Michael Boykin MD [address] [place] [address] Physician Hematology/Oncology 06/05/23 Ivania Jackman, STEVE [address] [facility] [place] [address] Specialty 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 Hematology/Oncology 06/05/23 Blueprint Maker Relationship Specialty Start Date End Date Cleo Feliz, SHUTTLER.ARCADE GAME TECHNICIAN [address] [place] [place] [address] Nurse Practitioner Hematology/Oncology 06/05/23 Michael Boyikn MD [address] [place] [address] Physician Hematology/Oncology 06/05/23 Ivania Jackman, RN [address] [facility] [place] [address] Specialty 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 Hematology/Oncology 06/05/23 Blueprint Maker Relationship Specialty Start Date End Date Cleo Feliz SHUTTLER.ARCADE GAME TECHNICIAN [address] [place] [address] Nurse Practitioner Hematology/Oncology 06/05/23 Michael Boykin MD [address] [place] [address] Physician Hematology/Oncology 06/05/23 Ivania Jackman, STEVE [address] [facility] [place] [address] Specialty 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 Hematology/Oncology 06/05/23 Blueprint Maker Relationship Specialty Start Date End Date Cleo Feliz, SHUTTLER.ARCADE GAME TECHNICIAN [address] [facility] [place] [address] Nurse Practitioner Hematology/Oncology 06/05/23 Michael Boykin MD [address] [facility] [place] [address] Physician Hematology/Oncology 06/05/23 Ivania Jackman, STEVE [address] [facility] [place] [address] Specialty 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 Hematology/Oncology 06/05/23 Blueprint Maker Relationship Specialty Start Date End Date Cleo Feliz, SHUTTLER.ARCADE GAME TECHNICIAN [address] [facility] [place] [address] Nurse Practitioner Hematology/Oncology 06/05/23 Michael Boykin MD [address] [facility] [place] [address] Physician Hematology/Oncology 06/05/23 Ivania Jackman, STEVE [address] [facility] [place] [address] Specialty 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 Hematology/Oncology 06/05/23 Blueprint Maker Relationship Specialty Start Date End Date Cleo Feliz, SHUTTLER.ARCADE GAME TECHNICIAN [address] [facility] [place] [address] Nurse Practitioner Hematology/Oncology 06/05/23 Michael Boykin MD [address] [place] [address] Physician Hematology/Oncology 06/05/23 Ivania Jackman, STEVE [address] [facility] [place] [address] Specialty 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 Hematology/Oncology 06/05/23 Blueprint Maker Relationship Specialty Start Date End Date Cleo Feliz, SHUTTLER.ARCADE GAME TECHNICIAN [address] [place] [place] [address] Nurse Practitioner Hematology/Oncology 06/05/23 Michael Boykin MD [address] [place] [place] [address] Physician Hematology/Oncology 06/05/23 Ivania Jackman, STEVE [address] [facility] [place] [address] Specialty 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 Hematology/Oncology 06/05/23 Blueprint Maker Relationship Specialty Start Date End Date Cleo Feliz, SHUTTLER.ARCADE GAME TECHNICIAN [address] [facility] [place] [address] Nurse Practitioner Hematology/Oncology 06/05/23 Michael Boykin MD [address] [facility] [place] [address] Physician Hematology/Oncology 06/05/23 Ivania Jackman, RN [address] [facility] [place] [address] Specialty 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 Hematology/Oncology 06/05/23 Blueprint Maker Relationship Specialty Start Date End Date Cleo Feliz, SHUTTLER.ARCADE GAME TECHNICIAN [address] [facility] [place] [address] Nurse Practitioner Hematology/Oncology 06/05/23 Michael Boykin MD [address] [facility] [place] [address] Physician Hematology/Oncology 06/05/23 Ivania Jackman, STEVE [address] [facility] [place] [address] Specialty 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 Hematology/Oncology 06/05/23 Blueprint Maker Relationship Specialty Start Date End Date Cleo Feliz, SHUTTLER.ARCADE GAME TECHNICIAN [address] [facility] [place] [address] Nurse Practitioner Hematology/Oncology 06/05/23 Michael Boykin MD [address] [facility] [address] Physician Hematology/Oncology 06/05/23 Ivania Jackman, STEVE [address] [facility] [place] [address] Specialty 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 Hematology/Oncology 06/05/23 Blueprint Maker Relationship Specialty Start Date End Date Cleo Feliz, SHUTTLER.ARCADE GAME TECHNICIAN [address] [facility] [place] [address] Nurse Practitioner Hematology/Oncology 06/05/23 Michael Boykin MD [address] [facility] [address] Physician Hematology/Oncology 06/05/23 Ivania Jackman, RN [address] [facility] [place] [address] Specialty 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 Hematology/Oncology 06/05/23 Blueprint Maker Relationship Specialty Start Date End Date Cleo Feliz, SHUTTLER.ARCADE GAME TECHNICIAN [address] [place] [place] [address] Nurse Practitioner Hematology/Oncology 06/05/23 Michael Boykin MD [address] [place] [place] [address] Physician Hematology/Oncology 06/05/23 Ivania Jackman, STEVE [address] [place] [place] [address] Specialty 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 Hematology/Oncology 06/05/23 Blueprint Maker Relationship Specialty Start Date End Date Cleo Feliz, SHUTTLER.ARCADE GAME TECHNICIAN [address] [place] [address] Nurse Practitioner Hematology/Oncology 06/05/23 Michael Boykin MD [address] [facility] [place] [address] Physician Hematology/Oncology 06/05/23 Ivania Jackman, RN [address] [place] [address] Specialty 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 Hematology/Oncology 06/05/23 Blueprint Maker Relationship Specialty Start Date End Date Cleo Feliz, SHUTTLER.ARCADE GAME TECHNICIAN [address] [place] [address] Nurse Practitioner Hematology/Oncology 06/05/23 Michael Boykin MD [address] [place] [address] Physician Hematology/Oncology 06/05/23 Ivania Jackman, RN [address] [place] [place] [address] Specialty 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 Hematology/Oncology 06/05/23 Blueprint Maker Relationship Specialty Start Date End Date Cleo Feliz, SHUTTLER.ARCADE GAME TECHNICIAN [address] [place] [place] [address] Nurse Practitioner Hematology/Oncology 06/05/23 Michael Boykin MD [address] [place] [address] [place] [address] Physician Hematology/Oncology 06/05/23 Ivania Jackman, STEVE [address] [place] [place] [address] Specialty 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 Hematology/Oncology 06/05/23 Blueprint Maker Relationship Specialty Start Date End Date Cleo Feliz, SHUTTLER.ARCADE GAME TECHNICIAN [address] [place] [place] [address] Nurse Practitioner Hematology/Oncology 06/05/23 Michael Boykin MD [address] [place] [place] [address] Physician Hematology/Oncology 06/05/23 Ivania Jackman, STEVE [address] [place] [address] Specialty 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 Hematology/Oncology 06/05/23 Blueprint Maker Relationship Specialty Start Date End Date Dorcas Bolanos MD [address] [place] [address] Hematology 01/07/24 Niesha Galdamez MD [address] [facility] [place] [address] Hematology and Oncology 01/08/24 Michael Boykin MD [address] [place] [address] Hematology and Oncology 01/08/24 Blueprint Maker Relationship Specialty Start Date End Date Emelia Gonzalez MD [address] [place] [id number] PCP - General Hematology/Oncology 02/02/24 Cleo Feliz, SHUTTLER.ARCADE GAME TECHNICIAN [address] [place] [address] [address] [place] [id number] Nurse Practitioner Hematology/Oncology 06/05/23 Michael Boykin MD [address] [place] [address] [place] [address] Physician Hematology/Oncology 06/05/23 Ivania Jackman, STEVE [address] [place] [address] Specialty 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 Hematology/Oncology 06/05/23 Blueprint Maker Relationship Specialty Start Date End Date Emelia Gonzalez MD [address] [place], [place] [id number] PCP - General Hematology/Oncology 02/02/24 Cleo Feliz, SHUTTLER.ARCADE GAME TECHNICIAN [address] [place] [address] Nurse Practitioner Hematology/Oncology 06/05/23 Michael Boykin MD [address] [facility] [place] [address] Physician Hematology/Oncology 06/05/23 Ivania Jackman, RN [address] [facility] [place] [address] Specialty 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 Hematology/Oncology 06/05/23 Blueprint Maker Relationship Specialty Start Date End Date Emelia Gonzalez MD [address] [place] [address] PCP - General Hematology/Oncology 02/02/24 Cleo Feliz, SHUTTLER.ARCADE GAME TECHNICIAN [address] [place] [address] Nurse Practitioner Hematology/Oncology 06/05/23 Michael Boykin MD [address] [place] [place] [address] Physician Hematology/Oncology 06/05/23 Ivania Jackman, STEVE [address] [facility] [place] [address] Specialty 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 Hematology/Oncology 06/05/23 Blueprint Maker Relationship Specialty Start Date End Date Emelia Gonzalez MD [address] [place] [address] PCP - General Hematology/Oncology 02/02/24 Cleo Feliz, SHUTTLER.ARCADE GAME TECHNICIAN [address] [place] [address] Nurse Practitioner Hematology/Oncology 06/05/23 Michael Boykin MD [address] [place] [place] [address] Physician Hematology/Oncology 06/05/23 Ivania Jackman RN [address] [facility] [place] [address] Specialty 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 Hematology/Oncology 06/05/23 Blueprint Maker Relationship Specialty Start Date End Date Emelia Gonzalez MD [address] [place] [address] PCP - General Hematology/Oncology 02/02/24 Cleo Feliz, SHUTTLER.ARCADE GAME TECHNICIAN [address] [facility] [place] [address] Nurse Practitioner Hematology/Oncology 06/05/23 Michael Boykin MD [address] [facility] [address] Physician Hematology/Oncology 06/05/23 Ivania Jackman RN [address] [facility] [place] [address] Specialty 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 Hematology/Oncology 06/05/23 Blueprint Maker Relationship Specialty Start Date End Date Emelia Gonzalez MD [address] [place] [address] PCP - General Hematology/Oncology 02/02/24 Cleo Feliz, SHUTTLER.ARCADE GAME TECHNICIAN [address] [facility] [address] Nurse Practitioner Hematology/Oncology 06/05/23 Michael Boykin MD [address] [facility] [place] [address] Physician Hematology/Oncology 06/05/23 Ivania Jackman, RN [address] [facility] [place] [address] Specialty 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 Hematology/Oncology 06/05/23 Blueprint Maker Relationship Specialty Start Date End Date Cleo Feliz, SHUTTLER.ARCADE GAME TECHNICIAN [address] [place] [address] Nurse Practitioner Hematology/Oncology 06/05/23 Michael Boykin MD [address] [place] [address] [place] [address] Physician Hematology/Oncology 06/05/23 Ivania Jackman RN [address] [place] [address] Specialty 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 Hematology/Oncology 06/05/23 Krystyna Hernandez LISW [address] [place] [address] Blood and Marrow Transplant 02/23/24 Blueprint Maker Relationship Specialty Start Date End Date Cleo Feliz, SHUTTLER.ARCADE GAME TECHNICIAN [address] [place] [address] [place] [address] Nurse Practitioner Hematology/Oncology 06/05/23 Michael Boykin MD [address] [place] [address] [place] [address] Physician Hematology/Oncology 06/05/23 Ivania Jackman, STEVE [address] [place] [address] Specialty 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 Hematology/Oncology 06/05/23 Krystyna Hernandez LISW [address] [place] [address] Blood and Marrow Transplant 02/23/24 Blueprint Maker Relationship Specialty Start Date End Date Cleo Feliz SHUTTLER.ARCADE GAME TECHNICIAN [address] [place] [address] Nurse Practitioner Hematology/Oncology 06/05/23 Michael Boykin MD [address] [place] [address] Physician Hematology/Oncology 06/05/23 Ivania Jackman, STEVE [address] [place] [address] Specialty 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 Hematology/Oncology 06/05/23 Krystyna Hernandez LISW [address] [place] [address] Blood and Marrow Transplant 02/23/24 Blueprint Maker Relationship Specialty Start Date End Date Cleo Feliz, SHUTTLER.ARCADE GAME TECHNICIAN [address] [place] [address] Nurse Practitioner Hematology/Oncology 06/05/23 Michael Boykin MD [address] [place] [place] [address] Physician Hematology/Oncology 06/05/23 Ivania Jackman RN [address] [place] [address] Specialty 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 Hematology/Oncology 06/05/23 Krystnya Hernandez LISW [address] [place] [address] Blood and Marrow Transplant 02/23/24 Blueprint Maker Relationship Specialty Start Date End Date Cleo Feliz, SHUTTLER.ARCADE GAME TECHNICIAN [address] [place] [address] Nurse Practitioner Hematology/Oncology 06/05/23 Michael Boykin MD [address] [facility] [address] Physician Hematology/Oncology 06/05/23 Ivania Jackman, RN [address] [facility] [place] [address] Specialty 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 Hematology/Oncology 06/05/23 Krystyna Hernandez [facility] [address] [place] [address] Blood and Marrow Transplant 02/23/24 Blueprint Maker Relationship Specialty Start Date End Date Cleo Feliz, SHUTTLER.ARCADE GAME TECHNICIAN [address] [facility] [place] [address] Nurse Practitioner Hematology/Oncology 06/05/23 Michael Boykin MD [address] [place] [address] Physician Hematology/Oncology 06/05/23 Ivania Jackman, RN [address] [facility] [address] Specialty 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 Hematology/Oncology 06/05/23 Krystyna Hernandez [facility] [address] [place] [address] Blood and Marrow Transplant 02/23/24 Blueprint Maker Relationship Specialty Start Date End Date Cleo Feliz, SHUTTLER.ARCADE GAME TECHNICIAN [address] [facility] [place] [address] Nurse Practitioner Hematology/Oncology 06/05/23 Michael Boykin MD [address] [facility] [place] [address] Physician Hematology/Oncology 06/05/23 Ivania Jackman, STEVE [address] [place] [address] Specialty 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 Hematology/Oncology 06/05/23 Krystyna Hernandez LISW [address] [place] [id number] Blood and Marrow Transplant 02/23/24 Source Comments (unrecognize d section and content) In the event this informatio n is protected by the Federal Confidentiality of Alcohol and Drug Abuse Patient Records regulations: The Federal rules restrict any use of the information to criminally investigate or prosecute any alcohol or drug abuse patient.[facility] SystemIn the event this information is protected by the Federal Confidentiality of Alcohol and Drug Abuse Patient Records regulations: The Federal rules restrict any use of the information to criminally investigate or prosecute any alcohol or drug abuse patient.[facility] SystemIn the event this information is protected by the Federal Confidentiality of Alcohol and Drug Abuse Patient Records regulations: The Federal rules restrict any use of the information to criminally investigate or prosecute any alcohol or drug abuse patient.[facility] SystemIn the event this information is protected by the Federal Confidentiality of Alcohol and Drug Abuse Patient Records regulations: The Federal rules restrict any use of the information to criminally investigate or prosecute any alcohol or drug abuse patient.[facility] SystemIn the event this information is protected by the Federal Confidentiality of Alcohol and Drug Abuse Patient Records regulations: The Federal rules restrict any use of the information to criminally investigate or prosecute any alcohol or drug abuse patient.[facility] SystemIn the event this information is protected by the Federal Confidentiality of Alcohol and Drug Abuse Patient Records regulations: The Federal rules restrict any use of the information to criminally investigate or prosecute any alcohol or drug abuse patient.[facility] SystemIn the event this information is protected by the Federal Confidentiality of Alcohol and Drug Abuse Patient Records regulations: The Federal rules restrict any use of the information to criminally investigate or prosecute any alcohol or drug abuse patient.[facility] SystemIn the event this information is protected by the Federal Confidentiality of Alcohol and Drug Abuse Patient Records regulations: The Federal rules restrict any use of the information to criminally investigate or prosecute any alcohol or drug abuse patient.[facility] SystemIn the event this information is protected by the Federal Confidentiality of Alcohol and Drug Abuse Patient Records regulations: The Federal rules restrict any use of the information to criminally investigate or prosecute any alcohol or drug abuse patient.[facility] SystemIn the event this information is protected by the Federal Confidentiality of Alcohol and Drug Abuse Patient Records regulations: The Federal rules restrict any use of the information to criminally investigate or prosecute any alcohol or drug abuse patient.[facility] SystemIn the event this information is protected by the Federal Confidentiality of Alcohol and Drug Abuse Patient Records regulations: The Federal rules restrict any use of the information to criminally investigate or prosecute any alcohol or drug abuse patient.[facility] SystemIn the event this information is protected by the Federal Confidentiality of Alcohol and Drug Abuse Patient Records regulations: The Federal rules restrict any use of the information to criminally investigate or prosecute any alcohol or drug abuse patient.[facility] SystemIn the event this information is protected by the Federal Confidentiality of Alcohol and Drug Abuse Patient Records regulations: The Federal rules restrict any use of the information to criminally investigate or prosecute any alcohol or drug abuse patient.[facility] SystemIn the event this information is protected by the Federal Confidentiality of Alcohol and Drug Abuse Patient Records regulations: The Federal rules restrict any use of the information to criminally investigate or prosecute any alcohol or drug abuse patient.[facility] SystemIn the event this information is protected by the Federal Confidentiality of Alcohol and Drug Abuse Patient Records regulations: The Federal rules restrict any use of the information to criminally investigate or prosecute any alcohol or drug abuse patient.[facility] SystemIn the event this information is protected by the Federal Confidentiality of Alcohol and Drug Abuse Patient Records regulations: The Federal rules restrict any use of the information to criminally investigate or prosecute any alcohol or drug abuse patient.[facility] SystemIn the event this information is protected by the Federal Confidentiality of Alcohol and Drug Abuse Patient Records regulations: The Federal rules restrict any use of the information to criminally investigate or prosecute any alcohol or drug abuse patient.[facility] SystemIn the event this information is protected by the Federal Confidentiality of Alcohol and Drug Abuse Patient Records regulations: The Federal rules restrict any use of the information to criminally investigate or prosecute any alcohol or drug abuse patient.[facility] SystemIn the event this information is protected by the Federal Confidentiality of Alcohol and Drug Abuse Patient Records regulations: The Federal rules restrict any use of the information to criminally investigate or prosecute any alcohol or drug abuse patient.[facility] SystemIn the event this information is protected by the Federal Confidentiality of Alcohol and Drug Abuse Patient Records regulations: The Federal rules restrict any use of the information to criminally investigate or prosecute any alcohol or drug abuse patient.[facility] SystemIn the event this information is protected by the Federal Confidentiality of Alcohol and Drug Abuse Patient Records regulations: The Federal rules restrict any use of the information to criminally investigate or prosecute any alcohol or drug abuse patient.[facility] SystemIn the event this information is protected by the Federal Confidentiality of Alcohol and Drug Abuse Patient Records regulations: The Federal rules restrict any use of the information to criminally investigate or prosecute any alcohol or drug abuse patient.[facility] SystemIn the event this information is protected by the Federal Confidentiality of Alcohol and Drug Abuse Patient Records regulations: The Federal rules restrict any use of the information to criminally investigate or prosecute any alcohol or drug abuse patient.[facility] SystemIn the event this information is protected by the Federal Confidentiality of Alcohol and Drug Abuse Patient Records regulations: The Federal rules restrict any use of the information to criminally investigate or prosecute any alcohol or drug abuse patient.[facility] SystemIn the event this information is protected by the Federal Confidentiality of Alcohol and Drug Abuse Patient Records regulations: The Federal rules restrict any use of the information to criminally investigate or prosecute any alcohol or drug abuse patient.[facility] SystemIn the event this information is protected by the Federal Confidentiality of Alcohol and Drug Abuse Patient Records regulations: The Federal rules restrict any use of the information to criminally investigate or prosecute any alcohol or drug abuse patient.[facility] SystemIn the event this information is protected by the Federal Confidentiality of Alcohol and Drug Abuse Patient Records regulations: The Federal rules restrict any use of the information to criminally investigate or prosecute any alcohol or drug abuse patient.[facility] SystemIn the event this information is protected by the Federal Confidentiality of Alcohol and Drug Abuse Patient Records regulations: The Federal rules restrict any use of the information to criminally investigate or prosecute any alcohol or drug abuse patient.[facility] SystemIn the event this information is protected by the Federal Confidentiality of Alcohol and Drug Abuse Patient Records regulations: The Federal rules restrict any use of the information to criminally investigate or prosecute any alcohol or drug abuse patient.[facility] SystemIn the event this information is protected by the Federal Confidentiality of Alcohol and Drug Abuse Patient Records regulations: The Federal rules restrict any use of the information to criminally investigate or prosecute any alcohol or drug abuse patient.[facility] SystemIn the event this information is protected by the Federal Confidentiality of Alcohol and Drug Abuse Patient Records regulations: The Federal rules restrict any use of the information to criminally investigate or prosecute any alcohol or drug abuse patient.[facility] SystemIn the event this information is protected by the Federal Confidentiality of Alcohol and Drug Abuse Patient Records regulations: The Federal rules restrict any use of the information to criminally investigate or prosecute any alcohol or drug abuse patient.[facility] SystemIn the event this information is protected by the Federal Confidentiality of Alcohol and Drug Abuse Patient Records regulations: The Federal rules restrict any use of the information to criminally investigate or prosecute any alcohol or drug abuse patient.[facility] SystemIn the event this information is protected by the Federal Confidentiality of Alcohol and Drug Abuse Patient Records regulations: The Federal rules restrict any use of the information to criminally investigate or prosecute any alcohol or drug abuse patient.[facility] SystemIn the event this information is protected by the Federal Confidentiality of Alcohol and Drug Abuse Patient Records regulations: The Federal rules restrict any use of the information to criminally investigate or prosecute any alcohol or drug abuse patient.[facility] SystemIn the event this information is protected by the Federal Confidentiality of Alcohol and Drug Abuse Patient Records regulations: The Federal rules restrict any use of the information to criminally investigate or prosecute any alcohol or drug abuse patient.[facility] SystemIn the event this information is protected by the Federal Confidentiality of Alcohol and Drug Abuse Patient Records regulations: The Federal rules restrict any use of the information to criminally investigate or prosecute any alcohol or drug abuse patient.[facility] SystemIn the event this information is protected by the Federal Confidentiality of Alcohol and Drug Abuse Patient Records regulations: The Federal rules restrict any use of the information to criminally investigate or prosecute any alcohol or drug abuse patient.[facility] SystemIn the event this information is protected by the Federal Confidentiality of Alcohol and Drug Abuse Patient Records regulations: The Federal rules restrict any use of the information to criminally investigate or prosecute any alcohol or drug abuse patient.[facility] SystemIn the event this information is protected by the Federal Confidentiality of Alcohol and Drug Abuse Patient Records regulations: The Federal rules restrict any use of the information to criminally investigate or prosecute any alcohol or drug abuse patient.[facility] SystemIn the event this information is protected by the Federal Confidentiality of Alcohol and Drug Abuse Patient Records regulations: The Federal rules restrict any use of the information to criminally investigate or prosecute any alcohol or drug abuse patient.[facility] SystemIn the event this information is protected by the Federal Confidentiality of Alcohol and Drug Abuse Patient Records regulations: The Federal rules restrict any use of the information to criminally investigate or prosecute any alcohol or drug abuse patient.[facility] SystemIn the event this information is protected by the Federal Confidentiality of Alcohol and Drug Abuse Patient Records regulations: The Federal rules restrict any use of the information to criminally investigate or prosecute any alcohol or drug abuse patient.[facility] SystemIn the event this information is protected by the Federal Confidentiality of Alcohol and Drug Abuse Patient Records regulations: The Federal rules restrict any use of the information to criminally investigate or prosecute any alcohol or drug abuse patient.[facility] SystemIn the event this information is protected by the Federal Confidentiality of Alcohol and Drug Abuse Patient Records regulations: The Federal rules restrict any use of the information to criminally investigate or prosecute any alcohol or drug abuse patient.[facility] SystemIn the event this information is protected by the Federal Confidentiality of Alcohol and Drug Abuse Patient Records regulations: The Federal rules restrict any use of the information to criminally investigate or prosecute any alcohol or drug abuse patient.[facility] SystemIn the event this information is protected by the Federal Confidentiality of Alcohol and Drug Abuse Patient Records regulations: The Federal rules restrict any use of the information to criminally investigate or prosecute any alcohol or drug abuse patient.[facility] SystemIn the event this information is protected by the Federal Confidentiality of Alcohol and Drug Abuse Patient Records regulations: The Federal rules restrict any use of the information to criminally investigate or prosecute any alcohol or drug abuse patient.[facility] SystemIn the event this information is protected by the Federal Confidentiality of Alcohol and Drug Abuse Patient Records regulations: The Federal rules restrict any use of the information to criminally investigate or prosecute any alcohol or drug abuse patient.[facility] SystemIn the event this information is protected by the Federal Confidentiality of Alcohol and Drug Abuse Patient Records regulations: The Federal rules restrict any use of the information to criminally investigate or prosecute any alcohol or drug abuse patient.[facility] SystemIn the event this information is protected by the Federal Confidentiality of Alcohol and Drug Abuse Patient Records regulations: The Federal rules restrict any use of the information to criminally investigate or prosecute any alcohol or drug abuse patient.[facility] SystemIn the event this information is protected by the Federal Confidentiality of Alcohol and Drug Abuse Patient Records regulations: The Federal rules restrict any use of the information to criminally investigate or prosecute any alcohol or drug abuse patient.[facility] SystemIn the event this information is protected by the Federal Confidentiality of Alcohol and Drug Abuse Patient Records regulations: The Federal rules restrict any use of the information to criminally investigate or prosecute any alcohol or drug abuse patient.[facility] SystemIn the event this information is protected by the Federal Confidentiality of Alcohol and Drug Abuse Patient Records regulations: The Federal rules restrict any use of the information to criminally investigate or prosecute any alcohol or drug abuse patient.[facility] SystemIn the event this information is protected by the Federal Confidentiality of Alcohol and Drug Abuse Patient Records regulations: The Federal rules restrict any use of the information to criminally investigate or prosecute any alcohol or drug abuse patient.[facility] SystemIn the event this information is protected by the Federal Confidentiality of Alcohol and Drug Abuse Patient Records regulations: The Federal rules restrict any use of the information to criminally investigate or prosecute any alcohol or drug abuse patient.[facility] SystemIn the event this information is protected by the Federal Confidentiality of Alcohol and Drug Abuse Patient Records regulations: The Federal rules restrict any use of the information to criminally investigate or prosecute any alcohol or drug abuse patient.[facility] SystemIn the event this information is protected by the Federal Confidentiality of Alcohol and Drug Abuse Patient Records regulations: The Federal rules restrict any use of the information to criminally investigate or prosecute any alcohol or drug abuse patient.[facility] SystemIn the event this information is protected by the Federal Confidentiality of Alcohol and Drug Abuse Patient Records regulations: The Federal rules restrict any use of the information to criminally investigate or prosecute any alcohol or drug abuse patient.[facility] SystemIn the event this information is protected by the Federal Confidentiality of Alcohol and Drug Abuse Patient Records regulations: The Federal rules restrict any use of the information to criminally investigate or prosecute any alcohol or drug abuse patient.[facility] SystemIn the event this information is protected by the Federal Confidentiality of Alcohol and Drug Abuse Patient Records regulations: The Federal rules restrict any use of the information to criminally investigate or prosecute any alcohol or drug abuse patient.[facility] SystemIn the event this information is protected by the Federal Confidentiality of Alcohol and Drug Abuse Patient Records regulations: The Federal rules restrict any use of the information to criminally investigate or prosecute any alcohol or drug abuse patient.[facility] SystemIn the event this information is protected by the Federal Confidentiality of Alcohol and Drug Abuse Patient Records regulations: The Federal rules restrict any use of the information to criminally investigate or prosecute any alcohol or drug abuse patient.[facility] SystemIn the event this information is protected by the Federal Confidentiality of Alcohol and Drug Abuse Patient Records regulations: The Federal rules restrict any use of the information to criminally investigate or prosecute any alcohol or drug abuse patient.[facility] SystemIn the event this information is protected by the Federal Confidentiality of Alcohol and Drug Abuse Patient Records regulations: The Federal rules restrict any use of the information to criminally investigate or prosecute any alcohol or drug abuse patient.[facility] SystemIn the event this information is protected by the Federal Confidentiality of Alcohol and Drug Abuse Patient Records regulations: The Federal rules restrict any use of the information to criminally investigate or prosecute any alcohol or drug abuse patient.[facility] Reason for Visit (unrecogniz ed section and content) Reason Comments Lymphoma New patient consulta tion Reason Comments 2nd opinion path Reason Comments Care Coordination Pathology Update Reason Comments Lymphoma Reason Comments Consult Specialty Diagnoses / Procedures Referred By Contyokasta t Referred To Contact Diagnoses 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) Procedures CONSULT TO HEMATOLOGY/ONCOLOGY OFFICE/OUTPATIENT [facility] 60-74 MINUTES Michael Boykin MD [address] [place] [address] [place] [address] Referral ID Status Reason Start Date Expiration Date V isits Requested Visits Authorized [id number] Closed PCP Requested Referral 05/22/2023 05/21/2024 1 1 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 Reason Comments Care Coordination Antiemetics Reason Comments Lymphoma 2 week follow up 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 Uric Acid Resul ts 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 Medication Prob carmencita Reason Comments Care Coordination Pathology Results Specialty Diagnoses / Procedures Referred By Contac t Referred To Contact Diagnoses 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) Niesha Galdamez MD [address] [place] [address] [address] [place] [address] [address] [place] [address] Referral ID Status Reason Start Date Expiration Date V isits Requested Visits Authorized [id number] Authorized 05/31/2023 08/29/2023 99 99 Reason Comments Care Coordination C1D1 treatment follo w up call Reason Comments Appointment Reason Comments Research IRB 5024 Informed Consent Specialty Diagnoses / Procedures Referred By Contac t Referred To Contact Hematology / HEMATOLOGY/ONCOLOGY Diagnoses lab/port Procedures LAB/PORT Michael Boykin MD [address] [address] [place] [address] [place] [address] Referral ID Status Reason Start Date Expiration Date V isits Requested Visits Authorized [id number] Authorized 06/17/2023 11/02/2023 99 99 Reason Comments Care Coordination Rash Reason Comments Care Coordination Rash Reason Comments Care Coordination Rash Update Reason Comments Lymphoma Treatment visit/port draw Reason Comments Lab Orders Reason Comments Lymphoma Treatment visit/port draw Reason Comments Future Appointment Reason Comments Care Coordination Pathology Results Reason Comments Care Coordination Appointment Reason Comments Lymphoma Reason Comments Care Coordination Appointment; Treatme nt Questions Reason Comments Established Patient Follow-Up Reason Comments Patient Update Initial CAR-T phone call Reason Comments New Patient Specialty Diagnoses / Procedures Referred By Contac t Referred To Contact Hematology Diagnoses Diagnosis: Follicular Lymphoma Diagnosed at: [facility] Referring Dr/Office: Self Biopsy performed: 12/17/23 Facility Bx done at: [facility] Imaging done: PET 11/18/23 Facility Imaging done at: [facility] Procedures NEW PATIENT SECOND OPINION Self, Self Dorcas Bolanos MD [address] [place] [address] Referral ID Status Reason Start Date Expiration Date V isits Requested Visits Authorized [id number] New Request 01/28/2024 02/21/2025 1 1 Reason Onset Date Comments Population Health Navigation Outreach 02/02/2024 ACO NO PCP 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 [facility]. provides no warranty or guarantee of the accuracy or completeness of information in this document.
--- NOTE | 2024-03-13 12:43 | PC.NURSE ---
Swelling from upper thigh down to right foot. Pt sees [facility] for Non Hodgkin lymphoma with reports of past swelling of right side groin lymph nodes.
--- NOTE | 2024-03-13 12:52 | US_ITS ---
The [address] [address] Patient Name: KATIA SHAIKH MRN: [id number] date: 1955 Sex: M Assigned Patient Location: ER Current Patient Location: Accession/Order Number: [id number] Exam Date: 03/13/2024 13:00 Report Date: 03/13/2024 14:23 At the request of: KRISTAL NAIR Procedure: US venous doppler LE RT CLINICAL HISTORY: Swelling. TECHNIQUE: Glynn-scale and Doppler images were obtained of the venous structures of the right lower extremity. FINDINGS: There is normal venous flow and compressibility identified from the common iliac vein through the superficial femoral vein to the popliteal vein of the right lower extremity. Normal venous waveforms by Doppler interrogation. Normal augmentation is identified. Calf veins are patent to the extent of visualization. Lymphadenopathy in the right groin is redemonstrated. US/US venous doppler LE RT IMPRESSION: No evidence of DVT in the right lower extremity. Right inguinal lymphadenopathy. Electronically authenticated by: FRANCIE MARCUM Date: 03/13/2024 14:23
[2024-03-13 14:07] VITALS: BP 121/80; PULSE 71; O2SAT 97
--- NOTE | 2024-03-13 15:37 | ED.GENADUL1 ---
HPI HPI - General Adult General Chief complaint: Extremity Problem, Nontraumatic Stated complaint: LOWER EXTREMITY PAIN Time Seen by Provider: 03/13/24 12:39 Source: patient Mode of arrival: walk-in Limitations: no limitations History of Present Illness HPI narrative: 68-year-old male to the emergency department she had a right lower extremity swelling. Patient has a history of non-Hodgkin's lymphoma currently being treated at the [facility]. He had some swelling of his increased the right lower extremity today prompting his Emergency Department visit. He did call and discuss with his oncologist who recommended he obtain a duplex study for deep vein thrombosis rule out. He reports that he has bulky lymphadenopathy has the cancer is in his right inguinal region. He believes this is causing his swelling. Related Data Home Medications ?Medication ?Instructions ?Recorded ?Confirmed levothyroxine 125 mcg capsule 125 mcg PO DAILY 05/01/23 12/17/23 multivitamin (Daily Multi-Vitamin 1 tab PO QAM 05/01/23 12/17/23 tablet) krill oil 500 mg capsule 500 mg PO DAILY 12/12/23 12/17/23 levothyroxine 125 mcg tablet 125 mcg PO DAILY 03/13/24 03/13/24 Allergies Allergy/AdvReac Type Severity Reaction Status Date / Time allopurinol Allergy Rash Verified 12/12/23 13:07 Opioid HPI Opioid Management Most Recent Opioid Data: Last Pain Scale 6 05/28/23 11:35 Review of Systems ROS Status of ROS 10 or more systems reviewed and unremarkable except as noted in history and below [facility] Medical History (Updated 03/13/24 @ 14:39 by Lorenzo Law MD) GERD (gastroesophageal reflux disease) ?K21.9 - Gastro-esophageal reflux disease without esophagitis (ICD-10) Large B-cell lymphoma ?C85.10 - Unspecified B-cell lymphoma, unspecified site (ICD-10) Lymphoma ?C85.90 - Non-Hodgkin lymphoma, unspecified, unspecified site (ICD-10) Mass of right inguinal region ?R19.09 - Other intra-abdominal and pelvic swelling, mass and lump (ICD-10) 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 ?C85.95 - Non-Hodgkin lymphoma, unspecified, lymph nodes of inguinal region and lower limb (ICD-10) Non Hodgkin's lymphoma ?C85.90 - Non-Hodgkin lymphoma, unspecified, unspecified site (ICD-10) Back pain ?M54.9 - Dorsalgia, unspecified (ICD-10) Heartburn ?R12 - Heartburn (ICD-10) Hypothyroidism ?E03.9 - Hypothyroidism, unspecified (ICD-10) Lymph node symptom ?R09.89 - Other specified symptoms and signs involving the circulatory and respiratory systems (ICD-10) Surgical History (Updated 12/12/23 @ 11:48 by Sandra Cano NP) H/O lymph node biopsy ?Z98.890 - Other specified postprocedural states (ICD-10) History of bronchoscopy ?Z98.890 - Other specified postprocedural states (ICD-10) History of thoracentesis ?Z98.890 - Other specified postprocedural states (ICD-10) H/O insertion of central venous access port ?Z95.828 - Presence of other vascular implants and grafts (ICD-10) History of lymph node excision ?Z98.890 - Other specified postprocedural states (ICD-10) Family History (Updated 05/01/23 @ 15:07 by Margie Munson) Other Family history of Alzheimer's disease Family history of diabetes mellitus Family history of lung cancer Family history of myocardial infarction Family history of renal failure Family history of skin cancer Social History (Updated 05/07/23 @ 08:07 by Esther Trammell) Within the past year, how often did you have a drink containing alcohol: monthly or less Within the past year, how many standard drinks containing alcohol did you have on a typical day: 1 or 2 Within the past year, how often did you have six or more drinks on one occasion: never Total score: 0 Score interpretation: A score less than 4 is consistent with normal alcohol consumption. 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 GENERAL: Well developed, well appearing adult in no acute distress. NEURO: Alert and oriented. Moves all extremities. Face is symmetric and expressive. EYES: PERRL. No scleral icterus or conjunctival injection. No discharge. HENT: Normocephalic, atraumatic. Hearing is grossly intact. Nares grossly patent and without discharge. Mucous membranes moist. NECK: No JVD. Patient moves neck without restriction. Right Lower Extremity: DP and PT pulses intact. Limb is similar color and temperature to the contralateral limb. 1+ edemaAt the ankle. No ecchymosis. Bulky lymphadenopathy in the inguinal region. No erythema or warmth. Compartments are soft. SKIN: Warm and dry. Normal turgor. No rash or lesions appreciated. PSYCH: Mood, affect, and interaction is appropriate to the setting. Constitutional Vital Signs, click to edit/add: Last Vital Signs Temp 97.8 F 03/13/24 12:34 Pulse 71 03/13/24 14:07 Resp 18 03/13/24 14:07 BP 121/80 03/13/24 14:07 Pulse Ox 97 03/13/24 14:07 O2 Del Method Room Air 03/13/24 12:45 Course Vital Signs Vital signs: Vital Signs Temperature 97.8 F 03/13/24 12:34 Pulse Rate 87 03/13/24 12:34 Respiratory Rate 20 03/13/24 12:34 Blood Pressure 155/90 H 03/13/24 12:34 Pulse Oximetry 98 03/13/24 12:34 Temperature 97.8 F 03/13/24 12:34 Pulse Rate 71 03/13/24 14:07 Respiratory Rate 18 03/13/24 14:07 Blood Pressure 121/80 03/13/24 14:07 Pulse Oximetry 97 03/13/24 14:07 Oxygen Delivery Method Room Air 03/13/24 12:45 Medical Decision Making MDM Narrative Medical decision making narrative: Duplex is negative. He does have some mild edema throughout the lower extremity. Leave this is likely due to decreased venous/lymphatic return given his multiple lymphadenopathy from his cancer in the groin. He'll follow-up with his oncology team. Return precautions were discussed. Sanchez wrap. Patient was discharged home. Imaging Data Venous US: Radiologist's impression: ITS Impressions Venous Doppler Study 03/13/24 12:52 IMPRESSION: No evidence of DVT in the right lower extremity. Right inguinal lymphadenopathy. Electronically authenticated by: FRANCIE MARCUM Date: 03/13/2024 14:23 Discharge Plan Discharge Stand Alone Forms: Portal Instructions Chief Complaint: Extremity Problem, Nontraumatic Clinical Impression: Leg edema, right Patient Disposition: Home, Self-Care Time of Disposition Decision: 14:36 Condition: Good Prescriptions / Home Meds: No Action krill oil 500 mg capsule 500 mg PO DAILY levothyroxine 125 mcg capsule 125 mcg PO DAILY multivitamin [Daily Multi-Vitamin] Tablet 1 tab PO QAM levothyroxine 125 mcg tablet 125 mcg PO DAILY Print Language: Turkish Instructions: Leg Edema (ED) Additional Instructions: Elevated at night. Sanchez wrap. Follow-up with your doctors at the [facility]. Referrals: Physician,Non-Staff, [Primary Care Provider] - 1 week Discharge Date/Time: 03/13/24 14:48
== END 2024-03-13 14:48 | disposition home or self-care (01) ==
PROVIDERS: Emergency Provider Student in an Organized Health Care Education/Training Program
DX: R60.0 Localized edema (principal); C85.90 Non-Hodgkin lymphoma, unspecified, unspecified site; Z79.899 Other long term (current) drug therapy; K21.9 Gastro-esophageal reflux disease without esophagitis; C85.10 Unspecified B-cell lymphoma, unspecified site; E03.9 Hypothyroidism, unspecified; Z87.891 Personal history of nicotine dependence
CPT/HCPCS: 93971; 99284

== ENCOUNTER 2024-06-14 14:00 | Outpatient (OUT) | payer MEDICARE, SELFPAY ==
--- OUTSIDE RECORDS SUMMARY | 2024-06-15 07:31 | XMS_ITS | CCD ---
Author Organization [facility] Care Team Providers Care Rn Obgyn Name Role Phone Unavailable Primary Care Provider UnavailEMELIA Velazquez Referring Unavailable Unavailable Primary Care Provider UnavailEMELIA Velazquez Primary Care Physician Unavailable Primary Care Provider Unavailgaurang Feliz STUCCO PLASTERER.Cleo RAUSCH Unavailable Michael Boykin MD Unavailable Joann Jackman RNecca Unavailable Augustina WILSON, Ivania Unavailable Dorcas Bolanos MD Unavailable Niesha Galdamez MD Unavailable Michael Boykin MD Unavailable Emelia Gonzalez MD Primary Care Provider [phone] SELF, SELF Referring Unavailable DORCAS BOLANOS Attending Unavailable Krystyna Miller Unavailable Rolando WILSON, Martina Onofre Unavailable [phone] Niesha Galdamez MD Unavailable [phone] Krystyna Chang Unavailable MICHAEL BOYKIN Referring Unavailable WINTER, NIESHA Attending Unavailable MICHAEL BOYKIN Attending Unavailable MICHAEL BOYKIN Referring Unavailable WINTER, NIESHA Referring Unavailable WINTER, NIESHA Referring Unavailable DYLAN PORTER Attending Unavailable EMELIA MICHAUD Primary Care Unavailable WINTER, NIESHA Attending Unavailable WINTER, NIESHA Referring Unavailable CLEO FELIZ Referring Unavailable MICHAEL BOYKIN Referring Unavailable WINTER, NIESHA Referring Unavailable WINTER, NIESHA Referring Unavailable WINTER, NIESHA Attending Unavailable WINTER, NIESHA Referring Unavailable WINTER, NIESHA Referring Unavailable WINTER, NIESHA Referring Unavailable Viviana VARELA Attending Unavailable WINTER, NIESHA Attending Unavailable WINTER, NIESHA Referring Unavailable BOYKIN, MICHAEL R Referring Unavailable ENGViviana ROJAS Attending Unavailable BOYKIN, MICHAEL R Attending Unavailable BOYKIN, MICHAEL R Referring Unavailable BOYKIN, MICHAEL R Referring Unavailable BOYKIN, MICHAEL R Attending Unavailable BOYKIN, MICHAEL R Referring Unavailable DANIELLE WINTER Referring Unavailable BOYKIN, MICHAEL R Referring Unavailable BOYKIN, MICHAEL R Attending Unavailable BOYKIN, MICHAEL R Referring Unavailable WINTER, NIESHA Referring Unavailable BOYKIN, MICHAEL R Referring Unavailable BOYKIN, MICHAEL R Attending Unavailable BOYKIN, MICHAEL R Referring Unavailable AL NORI, ADNAN R Primary Care Unavailable CHIQUITA DAVISitting Unavailable CHIQUITA DAVIS Attending Unavailable WINTER, NIESHA Referring Unavailable WINTER, NIESHA Referring Unavailable NABILA CHERY Attending Unavailable WINTER, NIESHA Referring Unavailable BOYKIN, MICHAEL R Referring Unavailable BOYKIN, MICHAEL R Referring Unavailable WINTER, NIESHA Referring Unavailable WINTER, NIESHA Attending Unavailable WINTER, NIESHA Referring Unavailable BOYKIN, MICHAEL R Referring Unavailable CLEO FELIZ Attending Unavailable BOYKIN, MICHAEL R Referring Unavailable BOYKIN, MICHAEL R Referring Unavailable BOYKIN, MICHAEL R Referring Unavailable BOYKIN, MICHAEL R Referring Unavailable BOYKIN, MICHAEL R Attending Unavailable BOYKIN, MICHAEL R Referring Unavailable BOYKIN, MICHAEL R Referring Unavailable BOYKIN, MICHAEL R Attending Unavailable BOYKIN, MICHAEL R Referring Unavailable BOYKIN, MICHAEL R Referring Unavailable BOYKIN, MICHAEL R Referring Unavailable BOYKIN, MICHAEL R Referring Unavailable WINTER, NIESHA Attending Unavailable Viviana VARELA Attending Unavailable Viviana VARELA Attending Unavailable Viviana VARELA Attending Unavailable WINTER, NIESHA Referring Unavailable ENGELEViviana Martins Attending Unavailable WINTER, NIESHA Referring Unavailable BOYKIN, MICHAEL R Attending Unavailable AL NORI, ADNAN R Primary Care Unavailable BOYKIN, MICHAEL R Referring Unavailable BOYKIN, MICHAEL R Referring Unavailable BOYKIN, MICHAEL R Referring Unavailable CLEO FELIZ Attending Unavailable BOYKIN, MICHAEL R Referring Unavailable BOYKIN, MICHAEL R Referring Unavailable BOYKIN, MICHAEL R Referring Unavailable BOYKIN, MICHAEL R Referring Unavailable BOYKIN, MICHAEL R Referring Unavailable BOYKIN, MICHAEL R Attending Unavailable Boykin, Michael R Referring Unavailable NILChiquita Adair Attending Unavailable NILL, Chiquita Martins Attending Unavailable NILL, Chiquita Martins Attending Unavailable NILLChiquita Attending Unavailable NILL, Chiquita Martins Attending Unavailable Allergies Allergy Classification Reported Allergen(s) Allergy Type Date of Onset Reaction(s) Facility Allopurinol (4 sources) Allopurinol Drug Allergy 07-08-20 [facility] (20 sources) Allopurinol; Translations: [allopurinol] Drug Allergy 07-08-20 [facility] (20 sources) Glucocorticoid preparation; Translations: [CORTICOSTEROIDS (GLUCOCORTICOIDS)] Propensity to adverse reactions to drug 03-30-20 Contraindicati on-Medical Surgical [facility] (1 source) No Known Medication Allergies; Translations: [No Known Medication Allergies] Propensity to adverse reactions (disorder) [facility] Repository Medications Current Medications Medication Drug Class(es) Dates Sig (Normalized) Sig (Original) acyclovir 400 mg oral tablet (12 sources) Herpesvirus Nucleoside Analog DNA Polymerase Inhibitor, Herpes Simplex Virus Nucleoside Analog DNA Polymerase Inhibitor, Herpes Zoster Virus Nucleoside Analog DNA Polymerase Inhibitor Start: 06-08-2024 take 1 tablet by mouth twice daily acyclovir 400 mg Tab 400 mg = 1 tab(s), Oral, BID, Refills(s) 0 Start Date: 06/08/24 Status: Ordered Start: 04-14-2024 take 1 tablet by radha th every twelve hours acyclovir (ZOVIRAX) 400 mg tablet Indications: 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) Take 1 tablet by mouth every 12 hours. 60 tablet 5 04/14/2024 Active collagen, hydrolysate, bovin e, (COLLAGEN, HYDR, BOVINE,, BULK,) 100 % powd (20 sources) take 1 dose by mouth once daily collagen, hydrolysate, bovine, (COLLAGEN, HYDR, BOVINE,, BULK,) 100 % powd Take 1 Dose by mouth once daily. 0 Suspended take 1 dose by mouth once daily collagen, hydrolysate, bovine, (COLLAGEN, HYDR, BOVINE,, BULK,) 100 % powd Take 1 Dose by mouth once daily. 0 Active Comment on above: Take 1 Dose by mouth once daily. dexamethasone 2 mg oral tablet (2 sources) Corticosteroid Start: 04-18-2024 End: 04-28-2024 dexAMETHasone (DECADRON) 2 mg tablet Take 3 tablets by mouth daily with breakfast for 2 days, THEN 2 tablets daily with breakfast for 4 days, THEN 1 tablet daily with breakfast for 4 days. Patient should start on April 18, 2024. 18 tablet 0 04/18/2024 04/28/2024 Active Fish Oils (8 sources) Start: 04-23-2023 Fish Oil Refill(s) 0, as directed Start Date: 04/23/23 Status: Ordered take 1 tablet by mouth once sherrie y FISH OIL Take 1 tablet by mouth daily. 0 Active KRILL OIL ORAL (20 sources) take 1 dose by mouth once daily KRILL OIL ORAL Take 1 Dose by mouth once daily. 0 Suspended take 1 dose by mouth once daily [...] th every afternoon. Multi Vitamins oral tablet (5 sources) Start: 3 take 1 tablet by [...] 1 Dose by mouth once daily. 0 Suspended take 1 dose by mouth once daily MULTIVITAMIN ORAL Take 1 Dose by mouth once daily. 0 Active MULTIVITAMIN ORA L Take by mouth. 0 Active Comment on above: Take by mouth. Take 1 Dose by mouth once daily. perflutren lipid microspheres 1.3 mL in NaCl (PF) 0.9% 10 mL injection (DEFINITY) (20 sources) Start: 05-19-2023 End: 08-17-2024 perflutren lipid microspheres 1.3 mL in NaCl (PF) 0.9% 10 mL injection (DEFINITY) predniSONE 20 mg oral tablet (16 sources) Start: 06-02-2023 take 2 tablets by mouth once daily, [...] daily x 5 days, then 1 daily sulfamethoxazole 800 mg / trimethoprim 160 mg oral tablet (12 sources) Dihydrofolate Reductase Inhibitor Antibacterial, Sulfonamide Antimicrobial Start: 06-08-2024 sulfamethoxazole-t rimethoprim 800 mg-160 mg Tab 1 tab(s), Oral, MonWedFri, Refill(s) 0 Start Date: 06/08/24 Status: Ordered Start: 04-16-2024 take 1 tablet by radha th once sulfamethoxazole-trimethoprim (BACTRIM D S) 800-160 mg per tablet Indications: 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) Take 1 tablet by mouth every Friday, Friday, and Friday. Patient should start on April 16, 2024. 12 tablet 5 04/16/2024 Active Start: 04-16-2024 take 1 tablet by radha th once sulfamethoxazole-trimethoprim (BACTRIM D S) 800-160 mg per tablet Indications: 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) Take 1 tablet by mouth every Friday, Friday, and Friday. Patient should start on April 16, 2024. 12 tablet 5 04/16/2024 Suspended Completed/Discontinued Medications Medication Drug Class(es) Dates Sig (Normalized) Sig (Original) allopurinol 300 mg oral tablet (11 sources) Xanthine Oxidase Inhibitor Start: 06-06-2023 End: 07-08-2023 take 1 tablet by mouth once daily allopurinol (ZYLOPRIM) 300 mg tablet Take 1 tablet by mouth once daily. 30 tablet 1 06/06/2023 07/08/2023 Discontinued (Discontinued by Patient) Comment on above: Take 1 tablet by radha once daily. Calcium Chloride (1 source) Start: 03-09-2024 End: 03-09-2024 calcium chloride 1 g in D5W 100 mL cycloPHOSphamide 1,000 mg, mesna 1,020 mg in NaCl 0.9% 170.2 mL (CYTOXAN) (3 sources) Start: 04-03-2024 End: 04-03-2024 cycloPHOSphamide 1,000 mg, mesna 1,020 mg in NaCl 0.9% 170.2 mL (CYTOXAN) Start: 04-02-2024 End: 04-02-2024 cycloPHOSphamide 1,000 mg, m esna 1,020 mg in NaCl 0.9% 170.2 mL (CYTOXAN) Start: 04-01-2024 End: 04-01-2024 cycloPHOSphamide 1,000 mg, m esna 1,020 mg in NaCl 0.9% 170.2 mL (CYTOXAN) dextrose 2.45 g-sodium citrate 2.2 g-citrate acid 730 mg/100 mL (ACD-A) infusion (1 source) Start: 03-09-2024 End: 03-11-2024 dextrose 2.45 g-sodium citrate 2.2 g-citrate acid 730 mg/100 mL (ACD-A) infusion febuxostat 40 mg oral tablet (7 sources) Xanthine Oxidase Inhibitor Start: 03-31-2024 take 1 tablet by mouth once daily febuxostat (ULORIC) 40 mg tab Take 1 tablet by mouth once daily. 4 tablet 0 03/31/2024 Suspended Fludarabine Phosphate 61.2 mg in NaCl 0.9% 112.448 mL (FLUDARA) (3 sources) Start: 04-03-2024 End: 04-03-2024 Fludarabine Phosphate 61.2 mg in NaCl 0.9% 112.448 mL (FLUDARA) Start: 04-02-2024 End: 04-02-2024 Fludarabine Phosphate 61.2 m g in NaCl 0.9% 112.448 mL (FLUDARA) Start: 04-01-2024 End: 04-01-2024 Fludarabine Phosphate 61.2 m g in NaCl 0.9% 112.448 mL (FLUDARA) levETIRAcetam 750 mg oral tablet (1 source) Start: 04-06-2024 End: 05-07-2024 take 1 tablet by mouth twice daily levETIRAcetam (KEPPRA) 750 mg tablet Indications: 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) Take 1 tablet by mouth two times a day. 46 tablet 0 04/06/2024 05/07/2024 Suspended levoFLOXacin 500 mg oral tablet (1 source) Quinolone Antimicrobial Start: 04-15-2024 take 1 tablet by mouth once daily in the morning levoFLOXacin (LEVAQUIN) 500 mg tablet Take 1 tablet by mouth daily at 6 am. 30 tablet 1 04/15/2024 Suspended Start: 04-15-2024 take 1 tablet by radha once daily in the morning levoFLOXacin (LEVAQUIN) 500 mg tablet Take 1 tablet by mouth daily at 6 am. 30 tablet 1 04/15/2024 Suspended methylPREDNISolone (2 sources) Corticosteroid Start: 06-27-2023 End: 07-02-2023 methylPREDNISolone (MEDROL, JOHNNY,) 4 mg Dose-Pack Use as directed. 21 tablet 0 06/27/2023 07/02/2023 Start: 06-27-2023 End: 07-02-2023 methylPREDNISolone (MEDROL, JOHNNY,) 4 mg Dose-Pack Use as directed. 21 tablet 0 06/27/2023 07/02/2023 Active Comment on above: Use as directed. 2 ml ondansetron 2 mg/ml injection (20 sources) Serotonin-3 Receptor Antagonist Start: 04-02-2024 End: 04-03-2024 ondansetron (PF) 8 mg injection (ZOFRAN) Start: 04-01-2024 End: 04-01-2024 ondansetron (PF) 8 mg inject ion (ZOFRAN) Start: 06-05-2023 End: 05-13-2024 take 1 tablet by mouth every eight hours as needed ondansetron (ZOFRAN) 8 mg tablet Take 1 tablet by mouth every 8 hours as needed for nausea/vomiting. 90 tablet 1 06/06/2023 05/13/2024 Discontinued Comment on above: Take 1 tablet by radha th every 8 hours as needed for nausea/vomiting. oxyCODONE hydrochloride 5 mg oral tablet (1 source) Opioid Agonist Start: 2023 End: 2023 take 1 tablet by mouth every four hours as needed oxyCODONE IR (ROXICODONE) 5 mg immediate release tablet Indications: Episodic tension-type headache, not intractable , History of engineered cell therapy infusion Take 1-2 tablets by mouth every 4 hours as needed for pain for up to 5 days. 12 tablet 0 04/14/2024 04/19/2024 Suspended pantoprazole 40 mg delayed release oral tablet (8 sources) Proton Pump Inhibitor Start: 2023 End: 2023 take 1 tablet by mouth once daily pantoprazole DR (PROTONIX) 40 mg tablet Take 1 tablet by mouth once daily. 30 tablet 3 04/14/2024 05/13/2024 Discontinued prochlorperazine 10 mg oral tablet (20 sources) Phenothiazine Start: 2022 End: 2023 take 1 tablet by mouth every six hours as needed prochlorperazine (COMPAZINE) 10 mg tablet Take 1 tablet by mouth every 6 hours as needed. 100 tablet 1 06/06/2023 05/13/2024 Discontinued Comment on above: Take 1 tablet by radha th every 6 hours as needed. 1000 ml sodium chloride 9 mg/ml injection (20 sources) Start: 2023 End: 2023 NaCl 0.9% iv infusion Start: 03-09-2024 End: 03-11-2024 sodium chloride 0.9 % (flush ) 10-20 mL (BD POSIFLUSH) Start: 05-19-2023 End: 08-17-2024 sodium chloride 0.9 % (flush ) 10 mL (BD POSIFLUSH) triamcinolone acetonide 1 mg/ml topical cream (3 sources) Corticosteroid Start: 06-27-2023 End: 07-08-2023 triamcinolone acetonide (KENALOG) 0.1 % cream Apply to affected area twice daily. 454 g 1 06/27/2023 07/08/2023 Discontinued Comment on above: Apply to affected ar ea twice daily. 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] Onset: 4 04-06-2024 Chronic Deficiency and other anemia (12 sources) Pancytopenia; Translations: [Other pancytopenia] Onset: 4 04-23-2024 Chronic Esophageal disorders (16 sources) Gastroesophageal reflux disease; Translations: [Gastro-esophageal reflux disease without esophagitis] Onset: 4 04-23-2023 Chronic Headache; including migraine (11 sources) Headache; Translations: [Headache] Onset: 4 Resolved: 4 04-14-2024 Episodic Immunity disorders (20 sources) Cytokine release syndrome; 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] Onset: 4 Resolved: 4 04-14-2024 Chronic Lymphadenitis (7 sources) Localized enlarged lymph nodes; Translations: [Localized enlarged lymph nodes] Onset: 3 Episodic Maintenance chemotherapy; radiotherapy (1 source) Patient encounter status; Translations: [Encounter for antineoplastic chemotherapy] 04-03-2024 Chronic Nausea and vomiting (13 sources) Chemotherapy-induced nausea and vomiting; Translations: [Nausea with vomiting, unspecified] Onset: 4 04-01-2024 Episodic Non-Hodgkin`s lymphoma (20 sources) Non-Hodgkin's lymphoma (clinical); Translations: [Malignant lymphoma of extranodal AND/OR solid organ site] Onset: 3 02-11-2013 Chronic Non-Hodgkin`s lymphoma (9 sources) History of B-cell lymphoma; Translations: [Personal history of non-Hodgkin lymphomas] 05-31-2023 Episodic Other aftercare (1 source) Procedure carried out on subject; Translations: [Encounter for adjustment and management of vascular access device] Onset: 3 Episodic Other aftercare (1 source) Drug therapy finding; Translations: [Encounter for therapeutic drug level monitoring] 02-18-2024 Episodic Other gastrointestinal disorders (2 sources) Groin mass 12-09-2023 Episodic Other gastrointestinal disorders (11 sources) Diarrhea; Translations: [Diarrhea, unspecified] Onset: 4 04-11-2024 Episodic Other hematologic conditions (2 sources) H/O: blood disorder; Translations: [Personal history of diseases of the blood and blood-forming organs and certain disorders involving the immune mechanism] 02-18-2024 Episodic Other lower respiratory disease (1 source) Dyspnea on exertion; Translations: [Other forms of dyspnea] 05-19-2023 Episodic Other nutritional; endocrine; and metabolic disorders (5 sources) Overweight 04-29-2023 Episodic Other nutritional; endocrine; and metabolic disorders (5 sources) Overweight in adulthood with body mass index of 25 or more but less than 30 04-29-2023 Episodic Other screening for suspected conditions (not mental disorders or infectious disease) (2 sources) Abnormal finding on evaluation procedure; Translations: [Abnormal results of function studies of other organs and systems] Onset: Episodic Residual codes; unclassified (3 sources) Device in situ 06-17-2023 Episodic Residual codes; unclassified (11 sources) At risk of disease; Translations: [Other specified personal risk factors, not elsewhere classified] Onset: 4 04-01-2024 Episodic Residual codes; unclassified (16 sources) Past history of procedure; Translations: [Personal history of other medical treatment] Onset: 4 04-06-2024 Episodic Residual codes; unclassified (2 sources) At risk of healthcare associated infection; Translations: [Other specified personal risk factors, not elsewhere classified] Onset: 4 04-06-2024 Episodic Residual codes; unclassified (11 sources) Edema of right lower limb; Translations: [Localized edema] Onset: 4 04-09-2024 Episodic Residual codes; unclassified (11 sources) At risk for infection; Translations: [Other specified personal risk factors, not elsewhere classified] Onset: 4 04-23-2024 Episodic Residual codes; unclassified (1 source) Personal history of other medical treatment; Translations: [History of engineered cell therapy infusion] Onset: Episodic Thyroid disorders (20 sources) Hypothyroidism; Translations: [Hypothyroidism, unspecified] Onset: 3 08-03-2015 Chronic Unclassified (1 source) Patient encounter status; Translations: [Encounter for screening for lung cancer] Unclassified (1 source) New Patient Onset: Past or Other Problems Problem Classification Problem Date Documented Date Episodic/Chronic Coagulation and hemorrhagic disorders (20 sources) Platelet count below reference range; Translations: [Thrombocytopenia, unspecified] Onset: 08-06-2023 Resolved: 03-09-2024 08-06-2023 Chronic Complications of surgical procedures or medical care (11 sources) Other and unspecified complications of medical care, not elsewhere classified; 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)] Onset: 04-15-2024 Resolved: 04-17-2024 04-17-2024 Episodic Other aftercare (1 source) Encounter for therapeutic drug level monitoring; Translations: [Encounter for monitoring cardiotoxic drug therapy] Onset: 02-24-2024 Episodic Other aftercare (1 source) Other long term care phlebotomist (current) drug therapy; Translations: [Encounter for monitoring cardiotoxic drug therapy] Onset: 02-24-2024 Episodic Other hematologic conditions (1 source) Personal history of diseases of the blood and blood-forming organs and certain disorders involving the immune mechanism; Translations: [Personal history of diseases of blood and blood-forming organs] Onset: 02-24-2024 Episodic Other lower respiratory disease (11 sources) Rib pain; Translations: [Pleurodynia] Onset: 04-14-2024 Resolved: 04-14-2024 04-14-2024 Episodic Results Test Name Value Interpretation Reference Range Facility Ambulatory Visit Summaryon 0 06-08-2024 Ambulatory Visit Summary Ambulatory Visit Summary KATIA SHAIKH :1955 Visit Date:06/08/2024 Ambulatory Visit Instructions Your Diagnosis Abnormal PET scan of colon Your Care Team Attending Physician - MIGUEL LOFTON, Chiquita Martins Primary Care Physician - SANDRA LOFTON, EMELIA This Is Your Medications List Contact prescribing physician if questions or concerns acyclovir (acyclovir 400 mg Tab) levothyroxine (levothyroxine 125 mcg (0.125 mg) Tab) multivitamin (Multi Vitamins oral tablet) omega-3 polyunsaturated fatty acids (Fish Oil) sulfamethoxazole-trimethopri m (sulfamethoxazole-trimethopr im 800 mg-160 mg Tab) Procedures Performed Excision of inguinal lymph nodes (12/17/2023), Insertion of implantable venous access port (05/28/2023), Biopsy of inguinal lymph node (05/07/2023), Thoracentesis (01/28/2002), Bronchoscopy (01/20/2002), Biopsy of lymph node. Discharge Vitals Heart Rate (Peripheral) 72 Respiratory Rate 16 Blood Pressure 122/80 Height 177.8 cm Height 70 in Weight 83.7 kg Weight 184.14 lb BMI 26.48 Medications What How Much When Instructions Unchanged acyclovir (acyclovir 400 mg Tab) 1 Tablets By Mouth 2 times a day Contact prescribing physician if questions or concerns Unchanged levothyroxine (levothyroxine 125 mcg (0.125 mg) Tab) 1 Tablets By Mouth Every day Contact prescribing physician if questions or concerns Unchanged multivitamin (Multi Vitamins oral tablet) 1 Tablets By Mouth Every day Contact prescribing physician if questions or concerns Unchanged omega-3 polyunsaturated fatty acids (Fish Oil) as directed Contact prescribing physician if questions or concerns Unchanged sulfamethoxazole-trimethopri m (sulfamethoxazole-trimethopr im 800 mg-160 mg Tab) 1 Tablets By Mouth Friday Contact prescribing physician if questions or concerns Allergies allopurinol Problems Ongoing - Any problem that you are currently receiving treatment for. Abnormal PET scan of colon BMI 26.0-26.9,adult Diffuse large B-cell lymphoma Encounter for care related to Port-a-Cath GERD (gastroesophageal reflux disease) Hypothyroidism Inguinal adenopathy Inguinal mass Overweight Patient Survey You may receive a survey via text or e-mail asking about your office visit. Please share your experience with us by completing your survey. We appreciate your feedback and thank you for choosing us for your care. Normal [facility] CNPNon 06-02-2024 CNPN Normal [facility] CNPNon 05-17-2024 CNPN Normal [facility] C-REACTIVE PROTEINon 024 CRP [Mass/Vol] mg/dL NINF - 0.9 mg/dL [facility] CBC W Auto Differential pane l (Bld)on 05-13-2024 Basophils (Bld) [#/Vol] NINF [facility] Basophils/100 WBC (Bld) 1.3 % [facility] Differential cell count method Nom (Bld) Auto [facility] Eosinophils (Bld) [#/Vol] 0.05 10*3/uL [facility] Eosinophils/100 WBC (Bld) 3.3 % [facility] Erythrocyte distribution width (RBC) [Ratio] 19.9 % High 11.5 - 15.0 % [facility] Hematocrit (Bld) [Volume fraction] 36.9 % Low 39.0 - 51.0 % [facility] Hemoglobin (Bld) [Mass/Vol] 12.9 g/dL Low 13.0 - 17.0 g/dL [facility] Immature granulocytes (Bld) [#/Vol] [facility] Immature granulocytes/100 WBC (Bld) 1.3 % [facility] Interpretation and review of laboratory results Abnormal [facility] Lymphocytes (Bld) [#/Vol] 0.21 10*3/uL Low [facility] Lymphocytes/100 WBC (Bld) 13.8 % [facility] MCH (RBC) [Entitic mass] 33.2 pg 26.0 - 34.0 pg [facility] MCHC (RBC) [Mass/Vol] 35.0 g/dL 30.5 - 36.0 g/dL [facility] MCV (RBC) [Entitic vol] 95.1 fL 80.0 - 100.0 fL [facility] Monocytes (Bld) [#/Vol] 0.31 10*3/uL [facility] Monocytes/100 WBC (Bld) 20.4 % [facility] Neutrophils (Bld) [#/Vol] 0.91 10*3/uL Low [facility] Neutrophils/100 WBC (Bld) 59.9 % [facility] Nucleated RBC (Bld) [#/Vol] [facility] Nucleated RBC/100 WBC (Bld) [Ratio] 0.0 % /100 WBC [facility] Platelet mean volume (Bld) [Entitic vol] 9.7 fL 9.0 - 12.7 fL [facility] Platelets (Bld) [#/Vol] 107 10*3/uL Low [facility] RBC (Bld) [#/Vol] 3.88 10*6/uL Low 4.20 - 6.00 m/uL [facility] WBC (Bld) [#/Vol] 1.52 10*3/uL Low [facility] Comment on above: No clot detected. [facility] Basophils (Bld) [#/Vol] 10*3/uL Normal <0.11 [facility] Comment on above: Order Comment: Speci men Type: BLOOD SPECIMENOrdering Facility: [facility] Address: [address] [place] [address] Performed By: #### [id number] ####[facility] [id number] [place] [address] [place] Basophils/100 WBC (Bld) 1.3 % Normal [facility] Comment on above: Order Comment: Speci men Type: BLOOD SPECIMENOrdering Facility: [facility] Address: [address] [place] [address] Performed By: #### 5 7021-8 ####[facility] [id number] [place] [address] [place] Differential cell count method Nom (Bld) Auto Normal [facility] Comment on above: Order Comment: Speci men Type: BLOOD SPECIMENOrdering Facility: [facility] Address: [address] [place] [address] Performed By: #### 5 7021-8 ####[facility] [id number] [place] [address] [place] Eosinophils (Bld) [#/Vol] 0.05 10*3/uL Normal <0.46 [facility] Comment on above: Order Comment: Speci men Type: BLOOD SPECIMENOrdering Facility: [facility] Address: [address] [place] [address] Performed By: #### 5 7021-8 ####[facility] [id number] [place] [address] [place] Eosinophils/100 WBC (Bld) 3.3 % Normal [facility] Comment on above: Order Comment: Speci men Type: BLOOD SPECIMENOrdering Facility: [facility] Address: [address] [place], [place] [address] Performed By: #### 5 7021-8 ####[facility] [id number] [place] [address] [place] Erythrocyte distribution width (RBC) [Ratio] 19.9 % High 11.5-15.0 [facility] Comment on above: Order Comment: Speci men Type: BLOOD SPECIMENOrdering Facility: [facility] Address: [address] [place] [address] Performed By: #### 5 7021-8 ####[facility] [id number] [place] [address] [place] Hematocrit (Bld) [Volume fraction] 36.9 % Low 39.0-51.0 [facility] Comment on above: Order Comment: Speci men Type: BLOOD SPECIMENOrdering Facility: [facility] Address: [address] [place] [address] Performed By: #### 5 7021-8 ####[facility] [id number] [place] [address] [place] Hemoglobin (Bld) [Mass/Vol] 12.9 g/dL Low 13.0-17.0 [facility] Comment on above: Order Comment: Speci men Type: BLOOD SPECIMENOrdering Facility: [facility] Address: [address] [place] [address] Performed By: #### 5 7021-8 ####[facility] [id number] [place] [address] [place] Immature granulocytes (Bld) [#/Vol] 10*3/uL Normal <0.10 [facility] Comment on above: Order Comment: Speci men Type: BLOOD SPECIMENOrdering Facility: [facility] Address: [address] [place] [address] Performed By: #### 5 7021-8 ####[facility] [id number] [place], [place] [address] [place] Immature granulocytes/100 WBC (Bld) 1.3 % Normal [facility] Comment on above: Order Comment: Speci men Type: BLOOD SPECIMENOrdering Facility: [facility] Address: [address] [place] [address] Performed By: #### 5 7021-8 ####[facility] [id number] [place] [address] [place] Lymphocytes (Bld) [#/Vol] 0.21 10*3/uL Low 1.00-4.00 [facility] Comment on above: Order Comment: Speci men Type: BLOOD SPECIMENOrdering Facility: [facility] Address: [address] [place] [address] Performed By: #### 5 7021-8 ####[facility] [id number] [place] [address] [place] Lymphocytes/100 WBC (Bld) 13.8 % Normal [facility] Comment on above: Order Comment: Speci men Type: BLOOD SPECIMENOrdering Facility: [facility] Address: [address] [place] [address] Performed By: #### 5 7021-8 ####[facility] [id number] [place] [address] [place] MCH (RBC) [Entitic mass] 33.2 pg Normal 26.0-34.0 [facility] Comment on above: Order Comment: Speci men Type: BLOOD SPECIMENOrdering Facility: [facility] Address: [address] [place] [address] Performed By: #### 5 7021-8 ####[facility] [id number] [place] [address] [place] MCHC (RBC) [Mass/Vol] 35.0 g/dL Normal 30.5-36.0 [facility] Comment on above: Order Comment: Speci men Type: BLOOD SPECIMENOrdering Facility: [facility] Address: [address] [place] [address] Performed By: #### 5 7021-8 ####[facility] [id number] [place] [address] [place] MCV (RBC) [Entitic vol] 95.1 fL Normal 80.0-100.0 [facility] Comment on above: Order Comment: Speci men Type: BLOOD SPECIMENOrdering Facility: [facility] Address: [address] [place] [address] Performed By: #### 5 7021-8 ####[facility] [id number] [place] [address] [place] Monocytes (Bld) [#/Vol] 0.31 10*3/uL Normal <0.87 [facility] Comment on above: Order Comment: Speci men Type: BLOOD SPECIMENOrdering Facility: [facility] Address: [address] [place] [address] Performed By: #### 5 7021-8 ####[facility] [id number] [place] [address] [place] Monocytes/100 WBC (Bld) 20.4 % Normal [facility] Comment on above: Order Comment: Speci men Type: BLOOD SPECIMENOrdering Facility: [facility] Address: [address] [place] [address] Performed By: #### 5 7021-8 ####[facility] [id number] [place] [address] [place] Neutrophils (Bld) [#/Vol] 0.91 10*3/uL Low 1.45-7.50 [facility] Comment on above: Order Comment: Speci men Type: BLOOD SPECIMENOrdering Facility: [facility] Address: [address] [place] [address] Performed By: #### 5 7021-8 ####[facility] [id number] [place] [address] [place] Neutrophils/100 WBC (Bld) 59.9 % Normal [facility] Comment on above: Order Comment: Speci men Type: BLOOD SPECIMENOrdering Facility: [facility] Address: [address] [place] [address] Performed By: #### 5 7021-8 ####[facility] [id number] [place] [address] [place] Nucleated RBC (Bld) [#/Vol] 10*3/uL Normal <0.01 [facility] Comment on above: Order Comment: Speci men Type: BLOOD SPECIMENOrdering Facility: [facility] Address: [address] [place] [address] Performed By: #### 5 7021-8 ####[facility] [id number] [place] [address] [place] Nucleated RBC/100 WBC (Bld) [Ratio] 0.0 /100 WBC Normal [facility] Comment on above: Order Comment: Speci men Type: BLOOD SPECIMENOrdering Facility: [facility] Address: [address] [place] [address] Performed By: #### 5 7021-8 ####[facility] [id number] [place] [address] [place] Platelet mean volume (Bld) [Entitic vol] 9.7 fL Normal 9.0-12.7 [facility] Comment on above: Order Comment: Speci men Type: BLOOD SPECIMENOrdering Facility: [facility] Address: [address] [place] [address] Performed By: #### 5 7021-8 ####[facility] [id number] [place] [address] [place] Platelets (Bld) [#/Vol] 107 10*3/uL Low 150-400 [facility] Comment on above: Order Comment: Speci men Type: BLOOD SPECIMENOrdering Facility: [facility] Address: [address] [place] [address] Performed By: #### 5 7021-8 ####[facility] [id number] [place] [address] [place] RBC (Bld) [#/Vol] 3.88 10*6/uL Low 4.20-6.00 [place] Comment on above: Order Comment: Speci men Type: BLOOD SPECIMENOrdering Facility: [facility] Address: [address] [place] [address] Performed By: #### 5 7021-8 ####[facility] [id number] [place] [address] [place] WBC (Bld) [#/Vol] 1.52 10*3/uL Low 3.70-11.00 [place] Comment on above: Order Comment: Speci men Type: BLOOD SPECIMENOrdering Facility: [facility] Address: [address] [place] [address] Result Comment: No c lot detected. Performed By: #### 5 7021-8 ####[facility] [id number] [place] [address] [place] CNOVon 05-13-2024 CNOV Normal [facility] CNOVSPon 05-13-2024 CNOVSP Normal [facility] CRP SerPl-mCncon 05-13-2024 CRP [Mass/Vol] mg/L Normal <0.9 [facility] Comment on above: Order Comment: Speci men Type: BLOOD SPECIMENOrdering Facility: [facility] Address: [address] [place] [address] Performed By: #### 1 988-5, 2276-4 ####[facility] [id number] [place] [address] [place] CRP [Mass/Vol]on 05-13-2024 Interpretation and review of laboratory results Normal [facility] CYTOMEGALOVIRUS (CMV) DNA, Q UANTITATIVE PCR, PLASMAon 05-13-2024 CMV DNA HARVEY+probe Qn (P) Not detected Normal Not Detected [facility] Comment on above: Order Comment: Speci men Type: BLOOD SPECIMENOrdering Facility: [facility] Address: [address] [place] [address] Performed By: #### C MVQNT ####[facility] [id number] [address] [id number] [address] [place] [facility] [place] Comprehensive metabolic 2000 panelon 05-13-2024 Albumin [Mass/Vol] 4.6 g/dL 3.9 - 4.9 g/dL [facility] ALP [Catalytic activity/Vol] 118 U/L High 38 - 113 U/L [facility] ALT [Catalytic activity/Vol] 40 U/L 10 - 54 U/L [facility] Anion gap [Moles/Vol] 11 mmol/L 8 - 15 mmol/L [facility] AST [Catalytic activity/Vol] 27 U/L 14 - 40 U/L [facility] Bilirubin [Mass/Vol] 0.5 mg/dL 0.2 - 1 .3 mg/dL [facility] Calcium [Mass/Vol] 9.6 mg/dL 8.5 - 10. 2 mg/dL [facility] Chloride [Moles/Vol] 106 mmol/L 98 - 10 7 mmol/L [facility] CO2 [Moles/Vol] 24 mmol/L 22 - 30 mmol/L [facility] Creatinine [Mass/Vol] 1.01 mg/dL 0.73 - 1.22 mg/dL [facility] GFR/1.73 sq M.predicted among non-blacks MDRD (S/P/Bld) [Vol rate/Area] 82 mL/min/{1.73_m2} - PINF [facility] Comment on above: Estimated Glomerular Filtration Rate (eGFR) is calculated using the 202 CKD-EPI creatinine equation. This equation utilizes serum creatinine, sex, and age as parameters. The creatinine assay has traceable calibration to isotope dilution-mass spectrometry. Refer to KDIGO guidelines for clinical interpretation. In patients with unstable renal function, e.g. those with acute kidney injury, the eGFR may not accurately reflect actual GFR. Glucose [Mass/Vol] 99 mg/dL 74 - 99 mg/dL [facility] Comment on above: The [place] Di[employer] Association (ADA) provides guidance for [...] Standards of Medical Care in Diabetes 2016, [place] [employer]. Diabetes Care. 2016.39(Suppl 1). Interpretation and review of laboratory results Abnormal [facility] Potassium [Moles/Vol] 4.6 mmol/L 3.7 - 5.1 mmol/L [facility] Protein [Mass/Vol] 6.8 g/dL 6.3 - 8.0 g/dL [facility] Sodium [Moles/Vol] 141 mmol/L 136 - 144 mmol/L [facility] Urea nitrogen [Mass/Vol] 16 mg/dL 9 - 24 mg/dL [facility] Albumin [Mass/Vol] 4.6 g/dL Normal 3.9-4.9 [facility] Comment on above: Order Comment: Speci men Type: BLOOD SPECIMENOrdering Facility: [facility] Address: [address] [place] [address] Performed By: #### 2 4323-8, , 2776-11 ####[facility] [id number] [place] [address] [place] ALP [Catalytic activity/Vol] 118 U/L High 38-113 [facility] Comment on above: Order Comment: Speci men Type: BLOOD SPECIMENOrdering Facility: [facility] Address: [address] [place] [address] Performed By: #### 2 4323-8, , 2776-11 ####[facility] [id number] [place] [address] [place] ALT [Catalytic activity/Vol] 40 U/L Normal 10-54 [facility] Comment on above: Order Comment: Speci men Type: BLOOD SPECIMENOrdering Facility: [facility] Address: [address] [place] [address] Performed By: #### 2 4323-8, 30874-4, 277-1 ####[facility] [id number] [place] [address] [place] Anion gap [Moles/Vol] 11 mmol/L Normal 8-15 [facility] Comment on above: Order Comment: Speci men Type: BLOOD SPECIMENOrdering Facility: [facility] Address: [address] [place] [address] Performed By: #### 2 4323-8, 80410-8, 277-1 ####[facility] [id number] [place] [address] [place] AST [Catalytic activity/Vol] 27 U/L Normal 14-40 [facility] Comment on above: Order Comment: Speci men Type: BLOOD SPECIMENOrdering Facility: [facility] Address: [address] [place] [address] Performed By: #### 2 4323-8, 04621-2, 277- ####[facility] [id number] [place] [address] [place] Bilirubin [Mass/Vol] 0.5 mg/dL Normal 0.2-1.3 [facility] Comment on above: Order Comment: Speci men Type: BLOOD SPECIMENOrdering Facility: [facility] Address: [address] [place] [address] Performed By: #### 2 4323-8, 44781-9, 2777-1 ####[facility] [id number] [place] [address] [place] Calcium [Mass/Vol] 9.6 mg/dL Normal 8.5-10.2 [facility] Comment on above: Order Comment: Speci men Type: BLOOD SPECIMENOrdering Facility: [facility] Address: [address] [place] [address] Performed By: #### 2 4323-8, , 2776-11 ####[facility] [id number] [place] [address] [place] Chloride [Moles/Vol] 106 mmol/L Normal 98-107 [facility] Comment on above: Order Comment: Speci men Type: BLOOD SPECIMENOrdering Facility: [facility] Address: [address] [place] [address] Performed By: #### 2 4323-8, , 2776-11 ####[facility] [id number] [place] [address] [place] CO2 [Moles/Vol] 24 mmol/L Normal 22-30 [facility] Comment on above: Order Comment: Speci men Type: BLOOD SPECIMENOrdering Facility: [facility] Address: [address] [place] [address] Performed By: #### 2 4323-8, , 2776-11 ####[facility] [id number] [place] [address] [place] Creatinine [Mass/Vol] 1.01 mg/dL Normal 0.73-1.22 [facility] Comment on above: Order Comment: Speci men Type: BLOOD SPECIMENOrdering Facility: [facility] Address: [address] [place] [address] Performed By: #### 2 4323-8, , 2776-11 ####[facility] [id number] [place] [address] [place] Creatinine and Glomerular filtration rate.predicted panel (S/P/Bld) 82 mL/min/1.73m??? Normal >=60 [facility] Comment on above: Order Comment: Sara randle Type: BLOOD SPECIMENOrdering Facility: [facility] Address: [address] [place] [address] Result Comment: Carol mated Glomerular Filtration Rate [...] actual GFR. Performed By: #### 2 4323-8, 08766-9, 2777-1 ####[facility] [id number] [place] [address] [place] Glucose [Mass/Vol] 99 mg/dL Normal 74-99 [facility] Comment on above: Order Comment: Sara randle Type: BLOOD SPECIMENOrdering Facility: [facility] Address: [address] [place] [address] Result Comment: The [place] Diabetes Association (ADA) provides guidance for cutoff [...] Standards of Medical Care in Diabetes 2016, [place] [employer]. Diabetes Care. 2016.39(Suppl 1). Performed By: #### 2 4323-8, 50214-9, 2777-1 ####[facility] [id number] [place] [address] [place] Potassium [Moles/Vol] 4.6 mmol/L Normal 3.7-5.1 [facility] Comment on above: Order Comment: Speci men Type: BLOOD SPECIMENOrdering Facility: [facility] Address: [address] [place] [address] Performed By: #### 2 4323-8, , 2776-11 ####[facility] [id number] [place] [address] [place] Protein [Mass/Vol] 6.8 g/dL Normal 6.3-8.0 [facility] Comment on above: Order Comment: Speci men Type: BLOOD SPECIMENOrdering Facility: [facility] Address: [address] [place] [address] Performed By: #### 2 4323-8, , 2776-11 ####[facility] [id number] [place] [address] [place] Sodium [Moles/Vol] 141 mmol/L Normal 136-144 [facility] Comment on above: Order Comment: Speci men Type: BLOOD SPECIMENOrdering Facility: [facility] Address: [address] [place] [address] Performed By: #### 2 4323-8, , 2776-11 ####[facility] [id number] [place] [address] [place] Urea nitrogen [Mass/Vol] 16 mg/dL Normal 9-24 [facility] Comment on above: Order Comment: Speci men Type: BLOOD SPECIMENOrdering Facility: [facility] Address: [address] [place] [address] Performed By: #### 2 4323-8, , 2776-11 ####[facility] [id number] [place] [address] [place] FERRITINon 05-13-2024 Ferritin [Mass/Vol] 584.0 ng/mL High 30.3 - 565.7 ng/mL [facility] Ferritin SerPl-mCncon 07-11- 2024 Ferritin [Mass/Vol] 584.0 ng/mL High 30.3-565.7 [facility] Comment on above: Order Comment: Speci men Type: BLOOD SPECIMENOrdering Facility: [facility] Address: [address] [place] [address] Performed By: #### 1 988-5, 2276-4 ####[facility] [id number] [place] [address] [place] Ferritin [Mass/Vol]on 2023 Interpretation and review of laboratory results Abnormal [facility] IMMUNOGLOBULINS,IGG,IGA,IGMo n 05-13-2024 IgA [Mass/Vol] 27 mg/dL Low 70-400 [facility] Comment on above: Order Comment: Speci men Type: BLOOD SPECIMENOrdering Facility: [facility] Address: [address] [place] [address] Performed By: #### S ERIMM ####[facility] [id number] [place] [address] [place] IgG [Mass/Vol] 821 mg/dL Normal 700-1600 [facility] Comment on above: Order Comment: Speci men Type: BLOOD SPECIMENOrdering Facility: [facility] Address: [address] [place] [address] Performed By: #### S ERIMM ####[facility] [id number] [place] [address] [place] IgM [Mass/Vol] 9 mg/dL Low 40-230 [facility] Comment on above: Order Comment: Speci men Type: BLOOD SPECIMENOrdering Facility: [facility] Address: [address] [place] [address] Performed By: #### S ERIMM ####[facility] [id number] [place] [address] [place] Immunodeficiency panel FC (B ld)on 05-13-2024 CD3 cells (Bld) [#/Vol] 134 cells/uL Low 958-0018 [facility] Comment on above: Order Comment: Speci men Type: BLOOD SPECIMENOrdering Facility: [facility] Address: [address] [place] [address] Performed By: #### 4 5268-0 ####[facility] [id number] [place] [address] [place] CD3 cells/100 cells (Bld) 49 % Low 60-89 [facility] Comment on above: Order Comment: Speci men Type: BLOOD SPECIMENOrdering Facility: [facility] Address: [address] [place] [address] Performed By: #### 4 5268-0 ####[facility]IA [id number] [place] [address] [place] CD3+CD4+ (T4 helper) cells (Bld) [#/Vol] 35 cells/uL Low 533-1674 [facility] Comment on above: Order Comment: Speci men Type: BLOOD SPECIMENOrdering Facility: [facility] Address: [address] [place] [address] Performed By: #### 4 5268-0 ####[facility]IA [id number] [place] [address] [place] CD3+CD4+ (T4 helper) cells/100 cells (Bld) 13 % Low 34-61 [facility] Comment on above: Order Comment: Speci men Type: BLOOD SPECIMENOrdering Facility: [facility] Address: [address] [place] [address] Performed By: #### 4 5268-0 ####[facility] [id number] [place] [address] [place] CD3+CD4+ (T4 helper) cells/CD3+CD8+ (T8 suppressor cells) cells (Bld) [# ratio] 0.35 % Low 1.10-3.25 [facility] Comment on above: Order Comment: Speci men Type: BLOOD SPECIMENOrdering Facility: [facility] Address: [address] [place] [address] Performed By: #### 4 5268-0 ####[facility] [id number] [place] [address] [place] CD3+CD8+ (T8 suppressor cells) cells (Bld) [#/Vol] 100 cells/uL Low 175-958 [facility] Comment on above: Order Comment: Speci men Type: BLOOD SPECIMENOrdering Facility: [facility] Address: [address] [place] [address] Performed By: #### 4 5268-0 ####[facility] [id number] [place] [address] [place] CD3+CD8+ (T8 suppressor cells) cells/100 cells (Bld) 37 % Normal 10-41 [facility] Comment on above: Order Comment: Speci men Type: BLOOD SPECIMENOrdering Facility: [facility] Address: [address] [place] [address] Performed By: #### 4 5268-0 ####[facility] [id number] [place] [address] [place] CD3-CD16+CD56+ (Natural killer) cells (Bld) [#/Vol] 127 cells/uL Normal 102-565 [facility] Comment on above: Order Comment: Speci men Type: BLOOD SPECIMENOrdering Facility: [facility] Address: [address] [place] [address] Performed By: #### 4 5268-0 ####[facility] [id number] [place] [address] [place] CD3-CD16+CD56+ (Natural killer) cells/100 cells (Bld) 47 % High 5-25 [facility] Comment on above: Order Comment: Speci men Type: BLOOD SPECIMENOrdering Facility: [facility] Address: [address] [place] [address] Performed By: #### 4 5268-0 ####[facility]CL[facility] [id number] [place] [address] [place] CD3-CD19+ cells (Bld) [#/Vol] 2 cells/uL Low 75-660 [facility] Comment on above: Order Comment: Speci men Type: BLOOD SPECIMENOrdering Facility: [facility] Address: [address] [place] [address] Performed By: #### 4 5268-0 ####[facility] LABIA [id number] [place] [address] [place] CD3-CD19+ cells/100 cells (Bld) 1 % Low 5-22 [facility] Comment on above: Order Comment: Dottyi men Type: BLOOD SPECIMENOrdering Facility: [facility] Address: [address] [place] [address] Performed By: #### 4 5268-0 ####[facility] [id number] [place] [address] [place] LACTATE DEHYDROGENASEon 05-03 LDH [Catalytic activity/Vol] 289 U/L High 135 - 225 U/L [facility] Comment on above: Hemolysis present. T he origin of the hemolysis, in vitro versus an in vivo hemolytic process, cannot be distinguished via this assay alone. In vitro hemolysis may lead to non-physiological (spurious) elevation in lactate dehydrogenase (LDH) results. The result should be interpreted in context of the clinical setting and other test results. Suggest reorder as clinically indicated. LDH SerPl-cCncon 05-13-2024 LDH [Catalytic activity/Vol] 289 U/L High 135-225 [facility] Comment on above: Order Comment: Speci men Type: BLOOD SPECIMENOrdering Facility: [facility] Address: [address] [place] [address] Result Comment: Hemo lysis present. The origin of the hemolysis, in vitro versus an in vivo hemolytic process, cannot be distinguished via this assay alone. In vitro hemolysis may lead to non-physiological (spurious) elevation in lactate dehydrogenase (LDH) results. Theresult should be interpreted in context of the clinical setting and other test results. Suggest reorder as clinically indicated. Performed By: #### 2 532-0 ####[facility] [id number] [place] [address] [place] LDH [Catalytic activity/Vol] on 05-13-2024 Interpretation and review of laboratory results Abnormal [facility] MAGNESIUMon 05-13-2024 Magnesium [Mass/Vol] 2.1 mg/dL 1.7 - 2 .3 mg/dL [facility] Magnesium SerPl-mCncon 05-13 Magnesium [Mass/Vol] 2.1 mg/dL Normal 1.7-2.3 [facility] Comment on above: Order Comment: Speci men Type: BLOOD SPECIMENOrdering Facility: [facility] Address: [address] [place] [address] Performed By: #### 2 4323-8, 18165-5, 277-1 ####[facility] [id number] [place] [address] [place] No Panel Informationon 05-13 Interpretation and review of laboratory results Normal [facility] PHOSPHORUS INORGANICon 05-13 Phosphate [Mass/Vol] 4.1 mg/dL 2.7 - 4 .8 mg/dL [facility] Phosphate SerPl-mCncon 05-13 Phosphate [Mass/Vol] 4.1 mg/dL Normal 2.7-4.8 [facility] Comment on above: Order Comment: Speci men Type: BLOOD SPECIMENOrdering Facility: [facility] Address: [address] [place] [address] Performed By: #### 2 4323-8, 26383-8, 2777- ####[facility] [id number] [place] [address] [place] NM PET/CT SKULL-THIGH SUBQon 05-07-2024 NM PET/CT SKULL-THIGH SUBQ Normal [facility] CBC W Auto Differential pane l (Bld)on 05-03-2024 Anisocytosis Ql (Bld) Present Normal [facility] Comment on above: Order Comment: Speci men Type: BLOOD SPECIMENOrdering Facility: [facility] Address: [address] [place] [address] Performed By: #### 5 7021-8 ####[facility] LABCLIA [id number] [address] LABCLIA [id number] [place] [address] [place] Basophils (Bld) [#/Vol] 0.02 10*3/uL Normal <0.11 [facility] Comment on above: Order Comment: Speci men Type: BLOOD SPECIMENOrdering Facility: [facility] Address: [address] [place] [address] Performed By: #### 5 7021-8 ####[facility] LABCLIA [id number] [address] LABCLIA [id number] [place] [address] [place] Basophils/100 WBC (Bld) 1.3 % Normal [facility] Comment on above: Order Comment: Speci men Type: BLOOD SPECIMENOrdering Facility: [facility] Address: [address] [place] [address] Performed By: #### 5 7021-8 ####[facility] LABCLIA [id number] [address] LABCLIA [id number] [place] [address] [place] Differential cell count method Nom (Bld) Manual Normal [facility] Comment on above: Order Comment: Speci men Type: BLOOD SPECIMENOrdering Facility: [facility] Address: [address] [place] [address] Performed By: #### 5 7021-8 ####[facility] LABCLIA [id number] [place] [id number] LABCLIA [id number] [place] [address] [place] Eosinophils (Bld) [#/Vol] 0.03 10*3/uL Normal <0.46 [facility] Comment on above: Order Comment: Speci men Type: BLOOD SPECIMENOrdering Facility: [facility] Address: [address] [place] [address] Performed By: #### 5 7021-8 ####[facility] LABCLIA [id number] [address] LABCLIA [id number] [place] [address] [place] Eosinophils/100 WBC (Bld) 1.7 % Normal [facility] Comment on above: Order Comment: Speci men Type: BLOOD SPECIMENOrdering Facility: [facility] Address: [address] [place] [address] Performed By: #### 5 7021-8 ####[facility] LABCLIA [id number] [address] LABCLIA [id number] [place] [address] [place] Erythrocyte distribution width (RBC) [Ratio] 19.4 % High 11.5-15.0 [facility] Comment on above: Order Comment: Speci men Type: BLOOD SPECIMENOrdering Facility: [facility] Address: [address] [place] [address] Performed By: #### 5 7021-8 ####[facility] LABCLIA [id number] [address] LABCLIA [id number] [place] [address] [place] Hematocrit (Bld) [Volume fraction] 39.0 % Normal 39.0-51.0 [facility] Comment on above: Order Comment: Speci men Type: BLOOD SPECIMENOrdering Facility: [facility] Address: [address] [place] [address] Performed By: #### 5 7021-8 ####[facility] LABCLIA [id number] [address] LABCLIA [id number] [place] [address] [place] Hemoglobin (Bld) [Mass/Vol] 13.1 g/dL Normal 13.0-17.0 [facility] Comment on above: Order Comment: Speci men Type: BLOOD SPECIMENOrdering Facility: [facility] Address: [address] [place] [address] Performed By: #### 5 7021-8 ####[facility] LABCLIA [id number] [address] LABCLIA [id number] [place] [address] [place] Lymphocytes (Bld) [#/Vol] 0.33 10*3/uL Low 1.00-4.00 [facility] Comment on above: Order Comment: Speci men Type: BLOOD SPECIMENOrdering Facility: [facility] Address: [address] [place] [address] Performed By: #### 5 7021-8 ####[facility] LABCLIA [id number] [address] LABCLIA [id number] [place] [address] [place] Lymphocytes/100 WBC (Bld) 19.9 % Normal [facility] Comment on above: Order Comment: Speci men Type: BLOOD SPECIMENOrdering Facility: [facility] Address: [address] [place] [address] Performed By: #### 5 7021-8 ####[facility] LABCLIA [id number] [place] [id number] LABCLIA [id number] [place] [address] [place] MCH (RBC) [Entitic mass] 32.3 pg Normal 26.0-34.0 [facility] Comment on above: Order Comment: Speci men Type: BLOOD SPECIMENOrdering Facility: [facility] Address: [address] [place] [address] Performed By: #### 5 7021-8 ####[facility] LABCLIA [id number] [address] LABCLIA [id number] [place] [address] [place] MCHC (RBC) [Mass/Vol] 33.6 g/dL Normal 30.5-36.0 [facility] Comment on above: Order Comment: Speci men Type: BLOOD SPECIMENOrdering Facility: [facility] Address: [address] [place] [address] Performed By: #### 5 7021-8 ####[facility] LABCLIA [id number] [address] LABCLIA [id number] [place] [address] [place] MCV (RBC) [Entitic vol] 96.3 fL Normal 80.0-100.0 [facility] Comment on above: Order Comment: Speci men Type: BLOOD SPECIMENOrdering Facility: [facility] Address: [address] [place] [address] Performed By: #### 5 7021-8 ####[facility] LABCLIA [id number] [address] LABCLIA [id number] [place] [address] [place] Monocytes (Bld) [#/Vol] 0.28 10*3/uL Normal <0.87 [facility] Comment on above: Order Comment: Speci men Type: BLOOD SPECIMENOrdering Facility: [facility] Address: [address] [place] [address] Performed By: #### 5 7021-8 ####[facility] LABCLIA [id number] [address] LABCLIA [id number] [place] [address] [place] Monocytes/100 WBC (Bld) 16.9 % Normal [facility] Comment on above: Order Comment: Speci men Type: BLOOD SPECIMENOrdering Facility: [facility] Address: [address] [place] [address] Performed By: #### 5 7021-8 ####[facility] LABCLIA [id number] [address] LABCLIA [id number] [place] [address] [place] Neutrophils (Bld) [#/Vol] 0.99 10*3/uL Low 1.45-7.50 [facility] Comment on above: Order Comment: Speci men Type: BLOOD SPECIMENOrdering Facility: [facility] Address: [address] [place] [address] Performed By: #### 5 7021-8 ####[facility] LABCLIA [id number] [address] LABCLIA [id number] [place] [address] [place] Neutrophils/100 WBC (Bld) 60.2 % Normal [facility] Comment on above: Order Comment: Speci men Type: BLOOD SPECIMENOrdering Facility: [facility] Address: [address] [place] [address] Performed By: #### 5 7021-8 ####[facility] LABCLIA [id number] [address] LABCLIA [id number] [place] [address] [place] Nucleated RBC (Bld) [#/Vol] 10*3/uL Normal <0.01 [facility] Comment on above: Order Comment: Speci men Type: BLOOD SPECIMENOrdering Facility: [facility] Address: [address] [place] [address] Performed By: #### 5 7021-8 ####[facility] LABCLIA [id number] [address] LABCLIA [id number] [place] [address] [place] Nucleated RBC/100 WBC (Bld) [Ratio] 0.0 /100 WBC Normal [facility] Comment on above: Order Comment: Speci men Type: BLOOD SPECIMENOrdering Facility: [facility] Address: [address] [place] [address] Performed By: #### 5 7021-8 ####[facility] LABCLIA [id number] [place] [id number] LABCLIA [id number] [place] [address] [place] Ovalocytes LM Ql (Bld) Few Normal [facility] Comment on above: Order Comment: Speci men Type: BLOOD SPECIMENOrdering Facility: [facility] Address: [address] [place] [address] Performed By: #### 5 7021-8 ####[facility] LABCLIA [id number] [place] [id number] LABCLIA [id number] [place] [address] [place] Platelet mean volume (Bld) [Entitic vol] 9.8 fL Normal 9.0-12.7 [facility] Comment on above: Order Comment: Speci men Type: BLOOD SPECIMENOrdering Facility: [facility] Address: [address] [place] [address] Performed By: #### 5 7021-8 ####[facility] LABCLIA [id number] [address] LABCLIA [id number] [place] [address] [place] Platelets (Bld) [#/Vol] 82 10*3/uL Low 150-400 [facility] Comment on above: Order Comment: Speci men Type: BLOOD SPECIMENOrdering Facility: [facility] Address: [address] [place] [address] Result Comment: No c lot detected. Performed By: #### 5 7021-8 ####[facility] LABCLIA [id number] [address] LABCLIA [id number] [place] [address] [place] Platelets Estimate (Bld) [#/Vol] Decreased Normal [facility] Comment on above: Order Comment: Speci men Type: BLOOD SPECIMENOrdering Facility: [facility] Address: [address] [place] [address] Performed By: #### 5 7021-8 ####[facility] LABCLIA [id number] [address] LABCLIA [id number] [place] [address] [place] Polychromasia LM Ql (Bld) Slight Normal [facility] Comment on above: Order Comment: Speci men Type: BLOOD SPECIMENOrdering Facility: [facility] Address: [address] [place] [address] Performed By: #### 5 7021-8 ####[facility] LABCLIA [id number] [address] LABCLIA [id number] [id number] [address] [place] RBC (Bld) [#/Vol] 4.05 10*6/uL Low 4.20-6.00 [place] Comment on above: Order Comment: Speci men Type: BLOOD SPECIMENOrdering Facility: [facility] Address: [address] [place] [address] Performed By: #### 5 7021-8 ####[facility] LABCLIA [id number] [address] LABCLIA [id number] [place] [address] [place] RED CELL MORPH Reviewed: see result s of individual morphologies Normal [facility] Comment on above: Order Comment: Speci men Type: BLOOD SPECIMENOrdering Facility: [facility] Address: [address] [place] [address] Performed By: #### 5 7021-8 ####[facility] LABCLIA [id number] [address] LABCLIA [id number] [place] [address] [place] WBC (Bld) [#/Vol] 1.64 10*3/uL Low 3.70-11.00 [place] Comment on above: Order Comment: Speci men Type: BLOOD SPECIMENOrdering Facility: [facility] Address: [address] [place] [address] Result Comment: No c lot detected. Performed By: #### 5 7021-8 ####[facility] LABCLIA [id number] [address] LABCLIA [id number] [place] [address] [place] CNPNon 05-03-2024 CNPN Normal [facility] Comprehensive metabolic 2000 panelon 05-03-2024 Albumin [Mass/Vol] 4.4 g/dL Normal 3.9-4.9 [facility] Comment on above: Order Comment: Speci men Type: BLOOD SPECIMENOrdering Facility: [facility] Address: [address] [place] [address] Performed By: #### 1 239, 03925-1 ####[facility] LABCLIA [id number] [place] [address] ALP [Catalytic activity/Vol] 146 U/L High 38-113 [facility] Comment on above: Order Comment: Speci men Type: BLOOD SPECIMENOrdering Facility: [facility] Address: [address] [place] [address] Performed By: #### 1 9, 33261-3 ####[facility] LABCLIA [id number] [place] [address] ALT [Catalytic activity/Vol] 37 U/L Normal 10-54 [facility] Comment on above: Order Comment: Speci men Type: BLOOD SPECIMENOrdering Facility: [facility] Address: [address] [place] [address] Performed By: #### 1 239, 53990-8 ####[facility] LABCLIA [id number] [place] [address] Anion gap [Moles/Vol] 11 mmol/L Normal 8-15 [facility] Comment on above: Order Comment: Speci men Type: BLOOD SPECIMENOrdering Facility: [facility] Address: [address] [place] [address] Performed By: #### 1 23, 39827-2 ####[facility] LABCLIA [id number] [place] [address] AST [Catalytic activity/Vol] 23 U/L Normal 14-40 [facility] Comment on above: Order Comment: Speci men Type: BLOOD SPECIMENOrdering Facility: [facility] Address: [address] [place] [address] Performed By: #### 1 23-9, 17867-5 ####[facility] LABCLIA [id number] [place] [address] Bilirubin [Mass/Vol] 0.3 mg/dL Normal 0.2-1.3 [facility] Comment on above: Order Comment: Speci men Type: BLOOD SPECIMENOrdering Facility: [facility] Address: [address] [place] [address] Performed By: #### 1 9123-9, 79608-6 ####[facility] LABCLIA [id number] [place] [address] Calcium [Mass/Vol] 9.8 mg/dL Normal 8.5-10.2 [facility] Comment on above: Order Comment: Speci men Type: BLOOD SPECIMENOrdering Facility: [facility] Address: [address] [place] [address] Performed By: #### 1 9123-9, 99082-6 ####[facility] LABIA [id number] [place] [address] Chloride [Moles/Vol] 108 mmol/L High 98-107 [facility] Comment on above: Order Comment: Speci men Type: BLOOD SPECIMENOrdering Facility: [facility] Address: [address] [place] [address] Performed By: #### 1 9123-9, ####[facility] LABCLIA [id number] [place] [address] CO2 [Moles/Vol] 24 mmol/L Normal 22-30 [facility] Comment on above: Order Comment: Speci men Type: BLOOD SPECIMENOrdering Facility: [facility] Address: [address] [place], [place] [address] Performed By: #### 1 9123-9, ####[facility] LABCLIA [id number] [place] [address] Creatinine [Mass/Vol] 1.11 mg/dL Normal 0.73-1.22 [facility] Comment on above: Order Comment: Speci men Type: BLOOD SPECIMENOrdering Facility: [facility] Address: [address] [place] [address] Performed By: #### 1 9123-9, 14005-9 ####[facility] LABCLIA [id number] [place] [address] Creatinine and Glomerular filtration rate.predicted panel (S/P/Bld) 73 mL/min/1.73m??? Normal >=60 [facility] Comment on above: Order Comment: Sara men Type: BLOOD SPECIMENOrdering Facility: [facility] Address: [address] [place] [address] Result Comment: Carol mated Glomerular Filtration Rate [...] actual GFR. Performed By: #### 1 9123-9, 75708-6 ####[facility] LABCLIA [id number] [place] [address] Glucose [Mass/Vol] 114 mg/dL High 74-99 [facility] Comment on above: Order Comment: Dottyjos razia Type: BLOOD SPECIMENOrdering Facility: [facility] Address: [address] [place] [address] Result Comment: The [place] [employer] (ADA) provides guidance for cutoff [...] Standards of Medical Care in Diabetes 2016, [place] [employer]. Diabetes Care. 2016.39(Suppl 1). Performed By: #### 1 9123-9, ####[facility] LABCLIA [id number] [place] [address] Potassium [Moles/Vol] 4.6 mmol/L Normal 3.7-5.1 [facility] Comment on above: Order Comment: Speci men Type: BLOOD SPECIMENOrdering Facility: [facility] Address: [address] [place] [address] Performed By: #### 1 239, ####[facility] LABCLIA [id number] [place] [address] Protein [Mass/Vol] 6.6 g/dL Normal 6.3-8.0 [facility] Comment on above: Order Comment: Speci men Type: BLOOD SPECIMENOrdering Facility: [facility] Address: [address] [place] [address] Performed By: #### 1 239, ####[facility] LABCLIA [id number] [place] [address] Sodium [Moles/Vol] 143 mmol/L Normal 136-144 [facility] Comment on above: Order Comment: Speci men Type: BLOOD SPECIMENOrdering Facility: [facility] Address: [address] [place], [place] [address] Performed By: #### 1 912[address], ####[facility] LABCLIA [id number] [place] [address] Urea nitrogen [Mass/Vol] 16 mg/dL Normal 9-24 [facility] Comment on above: Order Comment: Speci men Type: BLOOD SPECIMENOrdering Facility: [facility] Address: [address] [place], [place] [address] Performed By: #### 1 9123-9, ####[facility] LABCLIA [id number] [place] [address] Magnesium SerPl-mCncon 05-03 Magnesium [Mass/Vol] 2.2 mg/dL Normal 1.7-2.3 [facility] Comment on above: Order Comment: Speci men Type: BLOOD SPECIMENOrdering Facility: [facility] Address: [address] [place] [address] Performed By: #### 1 9123-9, 13194-7 ####[facility] LABIA [id number] [place] [id number] CNPNon 04-30-2024 CNPN Normal [facility] C-REACTIVE PROTEINon 024 CRP [Mass/Vol] mg/dL NINF - 0.9 mg/dL [facility] CBC W Auto Differential pane l (Bld)on 04-23-2024 Anisocytosis Ql (Bld) Present Normal [facility] Comment on above: Order Comment: Speci men Type: BLOOD SPECIMENOrdering Facility: [facility] Address: [address] [place] [address] Performed By: #### 5 7021-8 ####[facility] [id number] [place] [address] [place] Basophils (Bld) [#/Vol] 0.02 10*3/uL Normal <0.11 [facility] Comment on above: Order Comment: Speci men Type: BLOOD SPECIMENOrdering Facility: [facility] Address: [address] [place] [address] Performed By: #### 5 7021-8 ####[facility] [id number] [place] [address] [place] Basophils/100 WBC (Bld) 1.0 % Normal [facility] Comment on above: Order Comment: Speci men Type: BLOOD SPECIMENOrdering Facility: [facility] Address: [address] [place] [address] Performed By: #### 5 7021-8 ####[facility] [id number] [address] [place] Differential cell count method Nom (Bld) Manual Normal [facility] Comment on above: Order Comment: Speci men Type: BLOOD SPECIMENOrdering Facility: [facility] Address: [address] [place] [address] Performed By: #### 5 7021-8 ####[facility] [place] [id number] [place] [address] [place] Eosinophils (Bld) [#/Vol] 0.02 10*3/uL Normal <0.46 [facility] Comment on above: Order Comment: Speci men Type: BLOOD SPECIMENOrdering Facility: [facility] Address: [address] [place] [address] Performed By: #### 5 7021-8 ####[facility] [id number] [place] [address] [place] Eosinophils/100 WBC (Bld) 1.0 % Normal [facility] Comment on above: Order Comment: Speci men Type: BLOOD SPECIMENOrdering Facility: [facility] Address: [address] [place] [address] Performed By: #### 5 7021-8 ####[facility] [id number] [place] [address] [place] Erythrocyte distribution width (RBC) [Ratio] 17.1 % High 11.5-15.0 [facility] Comment on above: Order Comment: Speci men Type: BLOOD SPECIMENOrdering Facility: [facility] Address: [address] [place] [address] Performed By: #### 5 7021-8 ####[facility] [id number] [place] [address] [place] Hematocrit (Bld) [Volume fraction] 33.5 % Low 39.0-51.0 [facility] Comment on above: Order Comment: Speci men Type: BLOOD SPECIMENOrdering Facility: [facility] Address: [address] [place] [address] Performed By: #### 5 7021-8 ####[facility] [id number] [place] [address] [place] Hemoglobin (Bld) [Mass/Vol] 11.7 g/dL Low 13.0-17.0 [facility] Comment on above: Order Comment: Speci men Type: BLOOD SPECIMENOrdering Facility: [facility] Address: [address] [place] [address] Performed By: #### 5 7021-8 ####[facility] [id number] [place] [address] [place] Lymphocytes (Bld) [#/Vol] 0.23 10*3/uL Low 1.00-4.00 [facility] Comment on above: Order Comment: Speci men Type: BLOOD SPECIMENOrdering Facility: [facility] Address: [address] [place] [address] Performed By: #### 5 7021-8 ####[facility] [id number] [place] [address] [place] Lymphocytes/100 WBC (Bld) 12.0 % Normal [facility] Comment on above: Order Comment: Speci men Type: BLOOD SPECIMENOrdering Facility: [facility] Address: [address] [place] [address] Performed By: #### 5 7021-8 ####[facility] [id number] [place] [address] [place] MCH (RBC) [Entitic mass] 31.8 pg Normal 26.0-34.0 [facility] Comment on above: Order Comment: Speci men Type: BLOOD SPECIMENOrdering Facility: [facility] Address: [address] [place] [address] Performed By: #### 5 7021-8 ####[facility] [id number] [place] [address] [place] MCHC (RBC) [Mass/Vol] 34.9 g/dL Normal 30.5-36.0 [facility] Comment on above: Order Comment: Speci men Type: BLOOD SPECIMENOrdering Facility: [facility] Address: [address] [place] [address] Performed By: #### 5 7021-8 ####[facility] [id number] [place] [address] [place] MCV (RBC) [Entitic vol] 91.0 fL Normal 80.0-100.0 [facility] Comment on above: Order Comment: Speci men Type: BLOOD SPECIMENOrdering Facility: [facility] Address: [address] [place] [address] Performed By: #### 5 7021-8 ####[facility] [place] [id number] [place] [address] [place] Monocytes (Bld) [#/Vol] 0.33 10*3/uL Normal <0.87 [facility] Comment on above: Order Comment: Speci men Type: BLOOD SPECIMENOrdering Facility: [facility] Address: [address] [place] [address] Performed By: #### 5 7021-8 ####[facility] [place] [id number] [place] [address] [place] Monocytes/100 WBC (Bld) 17.0 % Normal [facility] Comment on above: Order Comment: Speci men Type: BLOOD SPECIMENOrdering Facility: [facility] Address: [address] [place] [address] Performed By: #### 5 7021-8 ####[facility] [place] [id number] [place] [address] [place] Neutrophils (Bld) [#/Vol] 1.34 10*3/uL Low 1.45-7.50 [facility] Comment on above: Order Comment: Speci men Type: BLOOD SPECIMENOrdering Facility: [facility] Address: [address] [place] [address] Performed By: #### 5 7021-8 ####[facility] [place] [id number] [place] [address] [place] Neutrophils/100 WBC (Bld) 69.0 % Normal [facility] Comment on above: Order Comment: Speci men Type: BLOOD SPECIMENOrdering Facility: [facility] Address: [address] [place] [address] Performed By: #### 5 7021-8 ####[facility] [place] [id number] [place] [address] [place] Nucleated RBC (Bld) [#/Vol] 10*3/uL Normal <0.01 [facility] Comment on above: Order Comment: Speci men Type: BLOOD SPECIMENOrdering Facility: [facility] Address: [address] [place] [address] Performed By: #### 5 7021-8 ####[facility] [place] [id number] [place] [address] [place] Nucleated RBC/100 WBC (Bld) [Ratio] 0.0 /100 WBC Normal [facility] Comment on above: Order Comment: Speci men Type: BLOOD SPECIMENOrdering Facility: [facility] Address: [address] [place] [address] Performed By: #### 5 7021-8 ####[facility] [id number] [place] [address] [place] Ovalocytes LM Ql (Bld) Few Normal [facility] Comment on above: Order Comment: Speci men Type: BLOOD SPECIMENOrdering Facility: [facility] Address: [address] [place] [address] Performed By: #### 5 7021-8 ####[facility] [id number] [address] [place] [address] [place] Platelet mean volume (Bld) [Entitic vol] 10.6 fL Normal 9.0-12.7 [facility] Comment on above: Order Comment: Speci men Type: BLOOD SPECIMENOrdering Facility: [facility] Address: [address] [place] [address] Performed By: #### 5 7021-8 ####[facility] [id number] [place] [address] [place] Platelets (Bld) [#/Vol] 77 10*3/uL Low 150-400 [facility] Comment on above: Order Comment: Speci men Type: BLOOD SPECIMENOrdering Facility: [facility] Address: [address] [place] [address] Performed By: #### 5 7021-8 ####[facility] [id number] [place] [address] [place] Platelets Estimate (Bld) [#/Vol] Decreased Normal [facility] Comment on above: Order Comment: Speci men Type: BLOOD SPECIMENOrdering Facility: [facility] Address: [address] [place] [address] Performed By: #### 5 7021-8 ####[facility] [id number] [place] [address] [place] Polychromasia LM Ql (Bld) Slight Normal [facility] Comment on above: Order Comment: Speci men Type: BLOOD SPECIMENOrdering Facility: [facility] Address: [address] [place] [address] Performed By: #### 5 7021-8 ####[facility] [place] [id number] [place] [address] [place] RBC (Bld) [#/Vol] 3.68 10*6/uL Low 4.20-6.00 [place] Comment on above: Order Comment: Speci men Type: BLOOD SPECIMENOrdering Facility: [facility] Address: [address] [place] [address] Performed By: #### 5 7021-8 ####[facility] [id number] [place] [address] [place] RED CELL MORPH Reviewed: see result s of individual morphologies Normal [facility] Comment on above: Order Comment: Speci men Type: BLOOD SPECIMENOrdering Facility: [facility] Address: [address] [place] [address] Performed By: #### 5 7021-8 ####[facility] [id number] [place] [address] [place] WBC (Bld) [#/Vol] 1.94 10*3/uL Low 3.70-11.00 [place] Comment on above: Order Comment: Speci men Type: BLOOD SPECIMENOrdering Facility: [facility] Address: [address] [place] [address] Result Comment: No c lot detected. Performed By: #### 5 7021-8 ####[facility] [id number] [place] [address] [place] CNOVSPon 04-23-2024 CNOVSP Normal [facility] CRP SerPl-mCncon 04-23-2024 CRP [Mass/Vol] mg/L Normal <0.9 [facility] Comment on above: Order Comment: Speci men Type: BLOOD SPECIMENOrdering Facility: [facility] Address: [address] [place] [address] Performed By: #### 1 988-5, 2276-4 ####[facility] [id number] [place] [address] [place] CRP [Mass/Vol]on 04-23-2024 Interpretation and review of laboratory results Normal [facility] Comprehensive metabolic 2000 panelon 04-23-2024 Albumin [Mass/Vol] 4.1 g/dL 3.9 - 4.9 g/dL [facility] ALP [Catalytic activity/Vol] 137 U/L High 38 - 113 U/L [facility] ALT [Catalytic activity/Vol] 35 U/L 10 - 54 U/L [facility] Anion gap [Moles/Vol] 11 mmol/L 8 - 15 mmol/L [facility] AST [Catalytic activity/Vol] 16 U/L 14 - 40 U/L [facility] Bilirubin [Mass/Vol] 0.4 mg/dL 0.2 - 1 .3 mg/dL [facility] Calcium [Mass/Vol] 9.1 mg/dL 8.5 - 10. 2 mg/dL [facility] Chloride [Moles/Vol] 105 mmol/L 98 - 10 7 mmol/L [facility] CO2 [Moles/Vol] 25 mmol/L 22 - 30 mmol/L [facility] Creatinine [Mass/Vol] 0.89 mg/dL 0.73 - 1.22 mg/dL [facility] GFR/1.73 sq M.predicted among non-blacks MDRD (S/P/Bld) [Vol rate/Area] 94 mL/min/{1.73_m2} - PINF [facility] Comment on above: Estimated Glomerular Filtration Rate [...] 100 mg/dL High 74 - 99 mg/dL [facility] Comment on above: The [place] Di[employer] Association (ADA) provides guidance for [...] Standards of Medical Care in Diabetes 2016, [place] [employer]. Diabetes Care. 2016.39(Suppl 1). Interpretation and review of laboratory results Abnormal [facility] Potassium [Moles/Vol] 4.3 mmol/L 3.7 - 5.1 mmol/L [facility] Protein [Mass/Vol] 6.5 g/dL 6.3 - 8.0 g/dL [facility] Sodium [Moles/Vol] 141 mmol/L 136 - 144 mmol/L [facility] Urea nitrogen [Mass/Vol] 22 mg/dL 9 - 24 mg/dL [facility] Albumin [Mass/Vol] 4.1 g/dL Normal 3.9-4.9 [facility] Comment on above: Order Comment: Speci men Type: BLOOD SPECIMENOrdering Facility: [facility] Address: [address] [place] [address] Performed By: #### 2 4323-8, ####[facility] [id number] [place] [address] [place] ALP [Catalytic activity/Vol] 137 U/L High 38-113 [facility] Comment on above: Order Comment: Speci men Type: BLOOD SPECIMENOrdering Facility: [facility] Address: [address] [place] [address] Performed By: #### 2 4323-8, ####[facility] [place] [id number] [place] [address] [place] ALT [Catalytic activity/Vol] 35 U/L Normal 10-54 [facility] Comment on above: Order Comment: Speci men Type: BLOOD SPECIMENOrdering Facility: [facility] Address: [address] [place] [address] Performed By: #### 2 4323-8, ####[facility] [id number] [place] [address] [place] Anion gap [Moles/Vol] 11 mmol/L Normal 8-15 [facility] Comment on above: Order Comment: Speci men Type: BLOOD SPECIMENOrdering Facility: [facility] Address: [address] [place] [address] Performed By: #### 2 4323-8, ####[facility] [id number] [place] [address] [place] AST [Catalytic activity/Vol] 16 U/L Normal 14-40 [facility] Comment on above: Order Comment: Speci men Type: BLOOD SPECIMENOrdering Facility: [facility] Address: [address] [place] [address] Performed By: #### 2 4323-8, ####[facility] [id number] [place] [address] [place] Bilirubin [Mass/Vol] 0.4 mg/dL Normal 0.2-1.3 [facility] Comment on above: Order Comment: Speci men Type: BLOOD SPECIMENOrdering Facility: [facility] Address: [address] [place] [address] Performed By: #### 2 432-8, ####[facility] [id number] [place] [address] [place] Calcium [Mass/Vol] 9.1 mg/dL Normal 8.5-10.2 [facility] Comment on above: Order Comment: Speci men Type: BLOOD SPECIMENOrdering Facility: [facility] Address: [address] [place] [address] Performed By: #### 2 4323-8, ####[facility] [id number] [place] [address] [place] Chloride [Moles/Vol] 105 mmol/L Normal 98-107 [facility] Comment on above: Order Comment: Speci men Type: BLOOD SPECIMENOrdering Facility: [facility] Address: [address] [place] [address] Performed By: #### 2 4323-8, ####[facility] [id number] [place] [address] [place] CO2 [Moles/Vol] 25 mmol/L Normal 22-30 [facility] Comment on above: Order Comment: Speci men Type: BLOOD SPECIMENOrdering Facility: [facility] Address: [address] [place] [address] Performed By: #### 2 4323-8, ####[facility] [id number] [place] [address] [place] Creatinine [Mass/Vol] 0.89 mg/dL Normal 0.73-1.22 [facility] Comment on above: Order Comment: Speci men Type: BLOOD SPECIMENOrdering Facility: [facility] Address: [address] [place] [address] Performed By: #### 2 4323-8, ####[facility] [id number] [place] [address] [place] Creatinine and Glomerular filtration rate.predicted panel (S/P/Bld) 94 mL/min/1.73m??? Normal >=60 [facility] Comment on above: Order Comment: Speci men Type: BLOOD SPECIMENOrdering Facility: [facility] Address: [address] [place] [address] Result Comment: Carol mated Glomerular Filtration Rate [...] actual GFR. Performed By: #### 2 4323-8, ####[facility] [id number] [place] [address] [place] Glucose [Mass/Vol] 100 mg/dL High 74-99 [facility] Comment on above: Order Comment: Speci men Type: BLOOD SPECIMENOrdering Facility: [facility] Address: [address] [place] [address] Result Comment: The [place] Diabetes Association (ADA) provides guidance for cutoff [...] Standards of Medical Care in Diabetes 2016, [place] [employer]. Diabetes Care. 2016.39(Suppl 1). Performed By: #### 2 4323-8, ####[facility] [id number] [place] [address] [place] Potassium [Moles/Vol] 4.3 mmol/L Normal 3.7-5.1 [facility] Comment on above: Order Comment: Speci men Type: BLOOD SPECIMENOrdering Facility: [facility] Address: [address] [place] [address] Performed By: #### 2 4323-8, ####[facility] [id number] [place] [address] [place] Protein [Mass/Vol] 6.5 g/dL Normal 6.3-8.0 [facility] Comment on above: Order Comment: Speci men Type: BLOOD SPECIMENOrdering Facility: [facility] Address: [address] [place], [place] [address] Performed By: #### 2 3-, ####[facility] [id number] [place] [address] [place] Sodium [Moles/Vol] 141 mmol/L Normal 136-144 [facility] Comment on above: Order Comment: Speci men Type: BLOOD SPECIMENOrdering Facility: [facility] Address: [address] [place] [address] Performed By: #### 2 4323-8, 13690-5 ####[facility] [id number] [place] [address] [place] Urea nitrogen [Mass/Vol] 22 mg/dL Normal 9-24 [facility] Comment on above: Order Comment: Speci men Type: BLOOD SPECIMENOrdering Facility: [facility] Address: [address] [place] [address] Performed By: #### 2 4323-8, 07295-0 ####[facility] [id number] [place] [address] [place] FERRITINon 04-23-2024 Ferritin [Mass/Vol] 589.0 ng/mL High 30.3 - 565.7 ng/mL [facility] Ferritin SerPl-mCncon 2023 Ferritin [Mass/Vol] 589.0 ng/mL High 30.3-565.7 [facility] Comment on above: Order Comment: Speci men Type: BLOOD SPECIMENOrdering Facility: [facility] Address: [address] [place] [address] Performed By: #### 1 988-5, 2276-4 ####[facility] [id number] [place] [address] [place] Ferritin [Mass/Vol]on 2023 Interpretation and review of laboratory results Abnormal [facility] LACTATE DEHYDROGENASEon 06-2 LDH [Catalytic activity/Vol] 150 U/L 135 - 225 U/L [facility] LDH SerPl-cCncon 04-23-2024 LDH [Catalytic activity/Vol] 150 U/L Normal 135-225 [facility] Comment on above: Order Comment: Speci men Type: BLOOD SPECIMENOrdering Facility: [facility] Address: [address] [place] [address] Performed By: #### 2 532-0 ####[facility] [id number] [place] [address] [place] LDH [Catalytic activity/Vol] on 04-23-2024 Interpretation and review of laboratory results Normal [facility] MAGNESIUMon 04-23-2024 Magnesium [Mass/Vol] 2.1 mg/dL 1.7 - 2 .3 mg/dL [facility] Magnesium SerPl-mCncon 04-23 Magnesium [Mass/Vol] 2.1 mg/dL Normal 1.7-2.3 [facility] Comment on above: Order Comment: Speci men Type: BLOOD SPECIMENOrdering Facility: [facility] Address: [address] [place] [address] Performed By: #### 2 4323-8, 45386-1 ####[facility] [id number] [place] [address] [place] Magnesium [Mass/Vol]on 04-23 Interpretation and review of laboratory results Normal [facility] No Panel Informationon 04-23 [facility] RUBEOLA (MEASLES)IGGon 04-23 MEASLES IGG AB, QUAL Positive Normal Positive [facility] Comment on above: Order Comment: Speci men Type: BLOOD SPECIMENOrdering Facility: [facility] Address: [address] [place] [address] Result Comment: The result suggests recent or past exposure to Measles virus or Measles vaccination. The current test does not detect neutralizing antibodies. Positive result may also be seen due to presence of passively-transferred antibodies. Please correlate with patient's history. Performed By: #### V ZVG2, MEASLG ####[facility] [id number] [place] [address] [place] TYPE + SCREENon 04-23-2024 ABO group Nom (Bld) B [facility] Blood group antibody screen Ql Negative [facility] HIstorical Ab Scr Status Negative [facility] Rh Nom (Bld) Negative [facility] Type and Screen Expiration 04/26/2024 23:59 [facility] ABO B Normal [facility] Comment on above: Order Comment: Speci men Type: BLOOD SPECIMENOrdering Facility: [facility] Address: [address] [place] [address] Performed By: #### T SCR ####[facility] BANKCLIA [id number] [address] [place] HISTORICAL AB SCR STATUS Negative Normal [facility] Comment on above: Order Comment: Speci men Type: BLOOD SPECIMENOrdering Facility: [facility] Address: [address] [place] [address] Performed By: #### T SCR ####[facility] BANKCLIA [id number] [place] [address] [place] Rh Nom (Bld) Negative Normal [facility] Comment on above: Order Comment: Speci men Type: BLOOD SPECIMENOrdering Facility: [facility] Address: [address] [place] [address] Performed By: #### T SCR ####[facility] BANKCLIA [id number] [place] [address] [place] TYPE AND SCREEN EXPIRATION 04/26/2024 23:59 Normal [facility] Comment on above: Order Comment: Speci men Type: BLOOD SPECIMENOrdering Facility: [facility] Address: [address] [place] [address] Performed By: #### T SCR ####[facility]LO[facility] BANKCLIA [id number] [place] [address] [place] VARICELLA ZOSTER IGGon 04-23 VARICELLA ZOSTER IGG, QUAL Positive Normal Positive [facility] Comment on above: Order Comment: Speci men Type: BLOOD SPECIMENOrdering Facility: [facility] Address: [address] [place] [address] Result Comment: The result suggests recent or past exposure to Varicella-Zoster virus or chickenpox vaccination or zoster vaccination. Positive result may also be seen due to presence of passively-transferred antibodies. Please correlate with patient's history. Performed By: #### V ZVG2, MEASLG ####[facility] [id number] [place] [address] [place] CASE MANAGEMon 04-17-2024 CASE MANAGEM Normal [facility] CBC panel Auto (Bld)on 04-17 Erythrocyte distribution width (RBC) [Ratio] 15.4 % High 11.5-15.0 [facility] Comment on above: Order Comment: Speci men Type: BLOOD SPECIMENOrdering Facility: [facility] Address: [address] [place] [address] Performed By: #### 5 8410-2 ####[facility] LABIA [id number] [place] [address] [place] Hematocrit (Bld) [Volume fraction] 31.4 % Low 39.0-51.0 [facility] Comment on above: Order Comment: Speci men Type: BLOOD SPECIMENOrdering Facility: [facility] Address: [address] [place] [address] Performed By: #### 5 8410-2 ####[facility] [id number] [place] [address] [place] Hemoglobin (Bld) [Mass/Vol] 10.9 g/dL Low 13.0-17.0 [facility] Comment on above: Order Comment: Speci men Type: BLOOD SPECIMENOrdering Facility: [facility] Address: [address] [place] [address] Performed By: #### 5 8410-2 ####[facility] [id number] [place] [address] [place] MCH (RBC) [Entitic mass] 31.2 pg Normal 26.0-34.0 [facility] Comment on above: Order Comment: Speci men Type: BLOOD SPECIMENOrdering Facility: [facility] Address: [address] [place] [address] Performed By: #### 5 8410-2 ####[facility] [id number] [place] [address] [place] MCHC (RBC) [Mass/Vol] 34.7 g/dL Normal 30.5-36.0 [facility] Comment on above: Order Comment: Speci men Type: BLOOD SPECIMENOrdering Facility: [facility] Address: [address] [place] [address] Performed By: #### 5 8410-2 ####[facility] [id number] [place] [address] [place] MCV (RBC) [Entitic vol] 90.0 fL Normal 80.0-100.0 [facility] Comment on above: Order Comment: Speci men Type: BLOOD SPECIMENOrdering Facility: [facility] Address: [address] [place] [address] Performed By: #### 5 8410-2 ####[facility] [id number] [place] [address] [place] Nucleated RBC (Bld) [#/Vol] 10*3/uL Normal <0.01 [facility] Comment on above: Order Comment: Speci men Type: BLOOD SPECIMENOrdering Facility: [facility] Address: [address] [place] [address] Performed By: #### 5 8410-2 ####[facility]IA [id number] [place] [address] [place] Platelet mean volume (Bld) [Entitic vol] 11.5 fL Normal 9.0-12.7 [facility] Comment on above: Order Comment: Speci men Type: BLOOD SPECIMENOrdering Facility: [facility] Address: [address] [place] [address] Performed By: #### 5 8410-2 ####[facility] [id number] [place] [address] [place] Platelets (Bld) [#/Vol] 59 10*3/uL Low 150-400 [facility] Comment on above: Order Comment: Speci men Type: BLOOD SPECIMENOrdering Facility: [facility] Address: [address] [place] [address] Result Comment: Resu lts checked and verified.No clot detected. Performed By: #### 5 8410-2 ####[facility] [id number] [place] [address] [place] RBC (Bld) [#/Vol] 3.49 10*6/uL Low 4.20-6.00 [place] Comment on above: Order Comment: Speci men Type: BLOOD SPECIMENOrdering Facility: [facility] Address: [address] [place] [address] Performed By: #### 5 8410-2 ####[facility] [id number] [place] [address] [place] WBC (Bld) [#/Vol] 1.87 10*3/uL Low 3.70-11.00 [place] Comment on above: Order Comment: Speci men Type: BLOOD SPECIMENOrdering Facility: [facility] Address: [address] [place] [address] Result Comment: No c lot detected. Performed By: #### 5 8410-2 ####[facility] [id number] [place] [address] [place] CNCOon 04-17-2024 CNCO Letter Text Normal [facility] CNDSon 04-17-2024 CNDS Normal [facility] Comprehensive metabolic 2000 panelon 04-17-2024 Albumin [Mass/Vol] 3.7 g/dL Low 3.9-4.9 [facility] Comment on above: Order Comment: Speci men Type: BLOOD SPECIMENOrdering Facility: [facility] Address: [address] [place] [address] Performed By: #### 2 4323-8, , 2776-11 ####[facility]CL[facility] [id number] [address] [address] [place] ALP [Catalytic activity/Vol] 107 U/L Normal 38-113 [facility] Comment on above: Order Comment: Speci men Type: BLOOD SPECIMENOrdering Facility: [facility] Address: [address] [place] [address] Performed By: #### 2 4323-8, , 2776-11 ####[facility] [id number] [place] [address] [place] ALT [Catalytic activity/Vol] 53 U/L Normal 10-54 [facility] Comment on above: Order Comment: Speci men Type: BLOOD SPECIMENOrdering Facility: [facility] Address: [address] [place] [address] Performed By: #### 2 4323-8, , 2776-11 ####[facility] [id number] [place] [address] [place] Anion gap [Moles/Vol] 10 mmol/L Normal 8-15 [facility] Comment on above: Order Comment: Speci men Type: BLOOD SPECIMENOrdering Facility: [facility] Address: [address] [place] [address] Performed By: #### 2 4323-8, , 2776-11 ####[facility]CL[facility] [id number] [place] [id number] [place] AST [Catalytic activity/Vol] 28 U/L Normal 14-40 [facility] Comment on above: Order Comment: Speci men Type: BLOOD SPECIMENOrdering Facility: [facility] Address: [address] [place] [address] Performed By: #### 2 4323-8, , 2776-11 ####[facility]CL[facility] [id number] [place] [address] [place] Bilirubin [Mass/Vol] 0.4 mg/dL Normal 0.2-1.3 [facility] Comment on above: Order Comment: Speci men Type: BLOOD SPECIMENOrdering Facility: [facility] Address: [address] [place] [address] Performed By: #### 2 4323-8, , 2776-11 ####[facility]CL[facility] [id number] [place] [address] [place] Calcium [Mass/Vol] 9.0 mg/dL Normal 8.5-10.2 [facility] Comment on above: Order Comment: Speci men Type: BLOOD SPECIMENOrdering Facility: [facility] Address: [address] [place] [address] Performed By: #### 2 4323-8, , 2776-11 ####[facility] [id number] [place] [address] [place] Chloride [Moles/Vol] 109 mmol/L High 98-107 [facility] Comment on above: Order Comment: Speci men Type: BLOOD SPECIMENOrdering Facility: [facility] Address: [address] [place] [address] Performed By: #### 2 4323-8, , 2776-11 ####[facility]CL[facility] [id number] [place] [address] [place] CO2 [Moles/Vol] 22 mmol/L Normal 22-30 [facility] Comment on above: Order Comment: Speci men Type: BLOOD SPECIMENOrdering Facility: [facility] Address: [address] [place] [address] Performed By: #### 2 4323-8, , 2776-11 ####[facility]CL[facility] [id number] [place] [address] [place] Creatinine [Mass/Vol] 0.93 mg/dL Normal 0.73-1.22 [facility] Comment on above: Order Comment: Sara randle Type: BLOOD SPECIMENOrdering Facility: [facility] Address: [address] [place] [address] Performed By: #### 2 4323-8, , 2776-11 ####[facility]CL[facility] [id number] [place] [address] [place] Creatinine and Glomerular filtration rate.predicted panel (S/P/Bld) 90 mL/min/1.73m??? Normal >=60 [facility] Comment on above: Order Comment: Sara randle Type: BLOOD SPECIMENOrdering Facility: [facility] Address: [address] [place] [address] Result Comment: Carol mated Glomerular Filtration Rate [...] actual GFR. Performed By: #### 2 4323-8, , 2776-11 ####[facility] [id number] [place] [id number] [place] Glucose [Mass/Vol] 93 mg/dL Normal 74-99 [facility] Comment on above: Order Comment: Sara randle Type: BLOOD SPECIMENOrdering Facility: [facility] Address: [address] [place] [address] Result Comment: The [place] [employer] (ADA) provides guidance for cutoff [...] Standards of Medical Care in Diabetes 2016, [place] [employer]. Diabetes Care. 2016.39(Suppl 1). Performed By: #### 2 4323-8, , 2776-11 ####[facility]CLIA [id number] [address] [address] [place] Potassium [Moles/Vol] 3.9 mmol/L Normal 3.7-5.1 [facility] Comment on above: Order Comment: Speci men Type: BLOOD SPECIMENOrdering Facility: [facility] Address: [address] [place] [address] Performed By: #### 2 4323-8, , 2776-11 ####[facility]CL[facility] [id number] [place] [address] [place] Protein [Mass/Vol] 5.6 g/dL Low 6.3-8.0 [facility] Comment on above: Order Comment: Speci men Type: BLOOD SPECIMENOrdering Facility: [facility] Address: [address] [place] [address] Performed By: #### 2 4322-8, , 2776-11 ####[facility]CL[facility] [id number] [place] [id number] [place] Sodium [Moles/Vol] 141 mmol/L Normal 136-144 [facility] Comment on above: Order Comment: Speci men Type: BLOOD SPECIMENOrdering Facility: [facility] Address: [address] [place] [address] Performed By: #### 2 4323-8, , 2776-11 ####[facility]CL[facility] [id number] [facility] [address] [address] [place] Urea nitrogen [Mass/Vol] 17 mg/dL Normal 9-24 [facility] Comment on above: Order Comment: Speci men Type: BLOOD SPECIMENOrdering Facility: [facility] Address: [address] [place] [address] Performed By: #### 2 4323-8, 41492-1, 2776-11 ####[facility]CLIA [id number] [place] [address] [place] Magnesium SerPl-mCncon 04-17 Magnesium [Mass/Vol] 2.4 mg/dL High 1.7-2.3 [facility] Comment on above: Order Comment: Speci men Type: BLOOD SPECIMENOrdering Facility: [facility] Address: [address] [place] [address] Performed By: #### 2 4323-8, , 2776-11 ####[facility]CL[facility] [id number] [place] [address] [place] NURSING PROGon 04-17-2024 NURSING PROG Normal [facility] Phosphate SerPl-mCncon 04-17 Phosphate [Mass/Vol] 2.7 mg/dL Normal 2.7-4.8 [facility] Comment on above: Order Comment: Speci men Type: BLOOD SPECIMENOrdering Facility: [facility] Address: [address] [place] [address] Performed By: #### 2 4323-8, , 2776-11 ####[facility]CL[facility] [id number] [place] [address] [place] CBC panel Auto (Bld)on 04-16 Erythrocyte distribution width (RBC) [Ratio] 14.5 % Normal 11.5-15.0 [facility] Comment on above: Order Comment: Speci men Type: BLOOD SPECIMENOrdering Facility: [facility] Address: [address] [place] [address] Performed By: #### 5 8410-2 ####[facility]CL[facility] [id number] [place] [address] [place] Hematocrit (Bld) [Volume fraction] 31.5 % Low 39.0-51.0 [facility] Comment on above: Order Comment: Speci men Type: BLOOD SPECIMENOrdering Facility: [facility] Address: [address] [place] [address] Performed By: #### 5 8410-2 ####[facility]CL[facility] [id number] [place] [address] [place] Hemoglobin (Bld) [Mass/Vol] 11.2 g/dL Low 13.0-17.0 [facility] Comment on above: Order Comment: Speci men Type: BLOOD SPECIMENOrdering Facility: [facility] Address: [address] [place] [address] Performed By: #### 5 8410-2 ####[facility]CL[facility] [id number] [place] [address] [place] MCH (RBC) [Entitic mass] 31.5 pg Normal 26.0-34.0 [facility] Comment on above: Order Comment: Speci men Type: BLOOD SPECIMENOrdering Facility: [facility] Address: [address] [place] [address] Performed By: #### 5 8410-2 ####[facility] [id number] [place] [address] [place] MCHC (RBC) [Mass/Vol] 35.6 g/dL Normal 30.5-36.0 [facility] Comment on above: Order Comment: Speci men Type: BLOOD SPECIMENOrdering Facility: [facility] Address: [address] [place] [address] Performed By: #### 5 8410-2 ####[facility]CL[facility] [id number] [place] [address] [place] MCV (RBC) [Entitic vol] 88.5 fL Normal 80.0-100.0 [facility] Comment on above: Order Comment: Speci men Type: BLOOD SPECIMENOrdering Facility: [facility] Address: [address] [place] [address] Performed By: #### 5 8410-2 ####[facility] [id number] [place] [address] [place] Nucleated RBC (Bld) [#/Vol] 10*3/uL Normal <0.01 [facility] Comment on above: Order Comment: Speci men Type: BLOOD SPECIMENOrdering Facility: [facility] Address: [address] [place] [address] Performed By: #### 5 8410-2 ####[facility] [id number] [place] [address] [place] Platelet mean volume (Bld) [Entitic vol] 11.7 fL Normal 9.0-12.7 [facility] Comment on above: Order Comment: Speci men Type: BLOOD SPECIMENOrdering Facility: [facility] Address: [address] [place] [address] Performed By: #### 5 8410-2 ####[facility] [id number] [place] [address] [place] Platelets (Bld) [#/Vol] 49 10*3/uL Low 150-400 [facility] Comment on above: Order Comment: Speci men Type: BLOOD SPECIMENOrdering Facility: [facility] Address: [address] [place] [address] Result Comment: Resu lts checked and verified.No clot detected. Performed By: #### 5 8410-2 ####[facility] [id number] [place] [address] [place] RBC (Bld) [#/Vol] 3.56 10*6/uL Low 4.20-6.00 [place] Comment on above: Order Comment: Speci men Type: BLOOD SPECIMENOrdering Facility: [facility] Address: [address] [place] [address] Performed By: #### 5 8410-2 ####[facility]CL[facility] [id number] [place] [address] [place] WBC (Bld) [#/Vol] 1.44 10*3/uL Low 3.70-11.00 [place] Comment on above: Order Comment: Speci men Type: BLOOD SPECIMENOrdering Facility: [facility] Address: [address] [place] [address] Result Comment: No c lot detected. Performed By: #### 5 8410-2 ####[facility]CL[facility] [id number] [place] [address] [place] Comprehensive metabolic 2000 panelon 04-16-2024 Albumin [Mass/Vol] 3.6 g/dL Low 3.9-4.9 [facility] Comment on above: Order Comment: Speci men Type: BLOOD SPECIMENOrdering Facility: [facility] Address: [address] [place] [address] Performed By: #### 2 4323-8, 11679-0, 2777-1 ####[facility]CLIA [id number] [place] [address] [place] ALP [Catalytic activity/Vol] 116 U/L High 38-113 [facility] Comment on above: Order Comment: Speci men Type: BLOOD SPECIMENOrdering Facility: [facility] Address: [address] [place] [address] Performed By: #### 2 4323-8, 90937-3, 2777-1 ####[facility]CLIA [id number] [place] [address] [place] ALT [Catalytic activity/Vol] 53 U/L Normal 10-54 [facility] Comment on above: Order Comment: Speci men Type: BLOOD SPECIMENOrdering Facility: [facility] Address: [address] [place] [address] Performed By: #### 2 4323-8, 12174-7, 2776-11 ####[facility]CLIA [id number] [place] [id number] [place] Anion gap [Moles/Vol] 9 mmol/L Normal 8-15 [facility] Comment on above: Order Comment: Speci men Type: BLOOD SPECIMENOrdering Facility: [facility] Address: [address] [place] [address] Performed By: #### 2 4323-8, , 2776-11 ####[facility] [id number] [place] [address] [place] AST [Catalytic activity/Vol] 28 U/L Normal 14-40 [facility] Comment on above: Order Comment: Speci men Type: BLOOD SPECIMENOrdering Facility: [facility] Address: [address] [place] [address] Performed By: #### 2 4323-8, , 2776-11 ####[facility] [id number] [place] [id number] [place] Bilirubin [Mass/Vol] 0.5 mg/dL Normal 0.2-1.3 [facility] Comment on above: Order Comment: Speci men Type: BLOOD SPECIMENOrdering Facility: [facility] Address: [address] [place] [address] Performed By: #### 2 4323-8, , 2776-11 ####[facility] [id number] [address] [address] [place] Calcium [Mass/Vol] 9.2 mg/dL Normal 8.5-10.2 [facility] Comment on above: Order Comment: Speci men Type: BLOOD SPECIMENOrdering Facility: [facility] Address: [address] [place] [address] Performed By: #### 2 4323-8, , 2777-1 ####[facility] [id number] [address] [address] [place] Chloride [Moles/Vol] 109 mmol/L High 98-107 [facility] Comment on above: Order Comment: Speci men Type: BLOOD SPECIMENOrdering Facility: [facility] Address: [address] [place] [address] Performed By: #### 2 4323-8, 84130-6, 2777-1 ####[facility] [id number] [place] [address] [place] CO2 [Moles/Vol] 23 mmol/L Normal 22-30 [facility] Comment on above: Order Comment: Speci men Type: BLOOD SPECIMENOrdering Facility: [facility] Address: [address] [place] [address] Performed By: #### 2 4323-8, , 7-1 ####[facility] [id number] [place] [address] [place] Creatinine [Mass/Vol] 0.83 mg/dL Normal 0.73-1.22 [facility] Comment on above: Order Comment: Speci men Type: BLOOD SPECIMENOrdering Facility: [facility] Address: [address] [place] [address] Performed By: #### 2 4323-8, , 2771 ####[facility] [id number] [place] [id number] [place] Creatinine and Glomerular filtration rate.predicted panel (S/P/Bld) 96 mL/min/1.73m??? Normal >=60 [facility] Comment on above: Order Comment: Speci men Type: BLOOD SPECIMENOrdering Facility: [facility] Address: [address] [place] [address] Result Comment: Carol mated Glomerular Filtration Rate [...] actual GFR. Performed By: #### 2 4323-8, , 2776-11 ####[facility]CL[facility] [id number] [place] [address] [place] Glucose [Mass/Vol] 130 mg/dL High 74-99 [facility] Comment on above: Order Comment: Sara randle Type: BLOOD SPECIMENOrdering Facility: [facility] Address: [address] [place] [address] Result Comment: The [place] [employer] (ADA) provides guidance for cutoff [...] Standards of Medical Care in Diabetes 2016, [place] [employer]. Diabetes Care. 2016.39(Suppl 1). Performed By: #### 2 432-8, , 2776-11 ####[facility]CL[facility] [id number] [place] [id number] [place] Potassium [Moles/Vol] 4.4 mmol/L Normal 3.7-5.1 [facility] Comment on above: Order Comment: Sara randle Type: BLOOD SPECIMENOrdering Facility: [facility] Address: [address] [place] [id number] Performed By: #### 2 4323-8, , 2776-11 ####[facility]CLIA [id number] [address] [address] [id number] [address] [place] Protein [Mass/Vol] 5.8 g/dL Low 6.3-8.0 [facility] Comment on above: Order Comment: Speci men Type: BLOOD SPECIMENOrdering Facility: [facility] Address: [address] [place] [address] Performed By: #### 2 4323-8, 90346-4, 2776-1 ####[facility]CL[facility] [id number] [place] [address] [place] Sodium [Moles/Vol] 141 mmol/L Normal 136-144 [facility] Comment on above: Order Comment: Speci men Type: BLOOD SPECIMENOrdering Facility: [facility] Address: [address] [place] [address] Performed By: #### 2 4323-8, , 2776- ####[facility]CL[facility] [id number] [place] [address] [place] Urea nitrogen [Mass/Vol] 16 mg/dL Normal 9-24 [facility] Comment on above: Order Comment: Speci men Type: BLOOD SPECIMENOrdering Facility: [facility] Address: [address] [place] [address] Performed By: #### 2 4323-8, , 2776- ####[facility] [id number] [place] [id number] [place] Magnesium SerPl-mCncon 04-16 Magnesium [Mass/Vol] 2.4 mg/dL High 1.7-2.3 [facility] Comment on above: Order Comment: Speci men Type: BLOOD SPECIMENOrdering Facility: [facility] Address: [address] [place] [address] Performed By: #### 2 4323-8, 56075-7, 2776-1 ####[facility]CL[facility] [id number] [place] [id number] [place] Phosphate SerPl-mCncon 04-16 Phosphate [Mass/Vol] 3.4 mg/dL Normal 2.7-4.8 [facility] Comment on above: Order Comment: Speci men Type: BLOOD SPECIMENOrdering Facility: [facility] Address: [address] [place] [address] Performed By: #### 2 4323-8, 55437-0, 2777-1 ####[facility]CL[facility] [id number] [place] [address] [place] CASE MGT INIT ASSESon 2023 CASE MGT INIT ASSES Normal [place] CBC panel Auto (Bld)on 04-15 Erythrocyte distribution width (RBC) [Ratio] 14.2 % Normal 11.5-15.0 [facility] Comment on above: Order Comment: Speci men Type: BLOOD SPECIMENOrdering Facility: [facility] Address: [address] [place] [address] Performed By: #### 5 8410-2 ####[facility] [id number] [place] [address] [place] Hematocrit (Bld) [Volume fraction] 32.5 % Low 39.0-51.0 [facility] Comment on above: Order Comment: Speci men Type: BLOOD SPECIMENOrdering Facility: [facility] Address: [address] [place] [address] Performed By: #### 5 8410-2 ####[facility] [id number] [place] [address] [place] Hemoglobin (Bld) [Mass/Vol] 11.2 g/dL Low 13.0-17.0 [facility] Comment on above: Order Comment: Speci men Type: BLOOD SPECIMENOrdering Facility: [facility] Address: [address] [place] [address] Performed By: #### 5 8410-2 ####[facility] [id number] [place] [address] [place] MCH (RBC) [Entitic mass] 30.9 pg Normal 26.0-34.0 [facility] Comment on above: Order Comment: Speci men Type: BLOOD SPECIMENOrdering Facility: [facility] Address: [address] [place] [address] Performed By: #### 5 8410-2 ####[facility] [id number] [place] [address] [place] MCHC (RBC) [Mass/Vol] 34.5 g/dL Normal 30.5-36.0 [facility] Comment on above: Order Comment: Speci men Type: BLOOD SPECIMENOrdering Facility: [facility] Address: [address] [place] [address] Performed By: #### 5 8410-2 ####[facility] [id number] [place] [address] [place] MCV (RBC) [Entitic vol] 89.8 fL Normal 80.0-100.0 [facility] Comment on above: Order Comment: Speci men Type: BLOOD SPECIMENOrdering Facility: [facility] Address: [address] [place] [address] Performed By: #### 5 8410-2 ####[facility] [id number] [place] [address] [place] Nucleated RBC (Bld) [#/Vol] 10*3/uL Normal <0.01 [facility] Comment on above: Order Comment: Speci men Type: BLOOD SPECIMENOrdering Facility: [facility] Address: [address] [place] [address] Performed By: #### 5 8410-2 ####[facility] [id number] [place] [address] [place] Platelet mean volume (Bld) [Entitic vol] 12.5 fL Normal 9.0-12.7 [facility] Comment on above: Order Comment: Speci men Type: BLOOD SPECIMENOrdering Facility: [facility] Address: [address] [place] [address] Performed By: #### 5 8410-2 ####[facility] [id number] [place] [address] [place] Platelets (Bld) [#/Vol] 46 10*3/uL Low 150-400 [facility] Comment on above: Order Comment: Speci men Type: BLOOD SPECIMENOrdering Facility: [facility] Address: [address] [place] [address] Performed By: #### 5 8410-2 ####[facility] [id number] [place] [address] [place] RBC (Bld) [#/Vol] 3.62 10*6/uL Low 4.20-6.00 [place] Comment on above: Order Comment: Speci men Type: BLOOD SPECIMENOrdering Facility: [facility] Address: [address] [place] [address] Performed By: #### 5 8410-2 ####[facility] [id number] [place] [address] [place] WBC (Bld) [#/Vol] 0.64 10*3/uL Low 3.70-11.00 [place] Comment on above: Order Comment: Speci men Type: BLOOD SPECIMENOrdering Facility: [facility] Address: [address] [place] [address] Result Comment: No c lot detected. Performed By: #### 5 8410-2 ####[facility] [id number] [place] [address] [place] BRAIN WO IVCONon 04-15-20 CT BRAIN WO IVCON Normal [facility] metabolic 2000 panelon 04-15-2024 Albumin [Mass/Vol] 3.6 g/dL Low 3.9-4.9 [facility] Comment on above: Order Comment: Speci men Type: BLOOD SPECIMENOrdering Facility: [facility] Address: [address] [place] [address] Performed By: #### 2 4323-8, , 2776-11 ####[facility] [id number] [place] [address] [place] ALP [Catalytic activity/Vol] 119 U/L High 38-113 [facility] Comment on above: Order Comment: Speci men Type: BLOOD SPECIMENOrdering Facility: [facility] Address: [address] [place] [address] Performed By: #### 2 4323-8, , 2776-11 ####[facility] [id number] [place] [address] [place] ALT [Catalytic activity/Vol] 48 U/L Normal 10-54 [facility] Comment on above: Order Comment: Speci men Type: BLOOD SPECIMENOrdering Facility: [facility] Address: [address] [place] [address] Performed By: #### 2 4323-8, , 2776-11 ####[facility] [id number] [place] [address] [place] Anion gap [Moles/Vol] 12 mmol/L Normal 8-15 [facility] Comment on above: Order Comment: Speci men Type: BLOOD SPECIMENOrdering Facility: [facility] Address: [address] [place] [address] Performed By: #### 2 4323-8, , 2776-11 ####[facility] [id number] [place] [address] [place] AST [Catalytic activity/Vol] 38 U/L Normal 14-40 [facility] Comment on above: Order Comment: Speci men Type: BLOOD SPECIMENOrdering Facility: [facility] Address: [address] [place] [address] Performed By: #### 2 4323-8, , 2776-11 ####[facility] [id number] [address] [address] [place] Bilirubin [Mass/Vol] 0.6 mg/dL Normal 0.2-1.3 [facility] Comment on above: Order Comment: Speci men Type: BLOOD SPECIMENOrdering Facility: [facility] Address: [address] [place] [address] Performed By: #### 2 4323-8, , 2776-11 ####[facility] [id number] [address] [address] [place] Calcium [Mass/Vol] 9.0 mg/dL Normal 8.5-10.2 [facility] Comment on above: Order Comment: Speci men Type: BLOOD SPECIMENOrdering Facility: [facility] Address: [address] [place] [address] Performed By: #### 2 4323-8, , 2776-11 ####[facility] [id number] [address] [address] [place] Chloride [Moles/Vol] 105 mmol/L Normal 98-107 [facility] Comment on above: Order Comment: Speci men Type: BLOOD SPECIMENOrdering Facility: [facility] Address: [address] [place] [id number] Performed By: #### 2 4323-8, , 2776-11 ####[facility]CL[facility] [id number] [address] [address] [place] CO2 [Moles/Vol] 20 mmol/L Low 22-30 [facility] Comment on above: Order Comment: Speci men Type: BLOOD SPECIMENOrdering Facility: [facility] Address: [address] [place], [place] [id number] Performed By: #### 2 4323-8, 39525-3, 2776- ####[facility] LABIA [id number] [place] [id number] [place] Creatinine [Mass/Vol] 0.85 mg/dL Normal 0.73-1.22 [facility] Comment on above: Order Comment: Speci men Type: BLOOD SPECIMENOrdering Facility: [facility] Address: [address] [place] [address] Performed By: #### 2 4323-8, , 2776-11 ####[facility] [id number] [place] [address] [place] Creatinine and Glomerular filtration rate.predicted panel (S/P/Bld) 95 mL/min/1.73m??? Normal >=60 [facility] Comment on above: Order Comment: Sara randle Type: BLOOD SPECIMENOrdering Facility: [facility] Address: [address] [place] [address] Result Comment: Carol mated Glomerular Filtration Rate [...] actual GFR. Performed By: #### 2 4323-8, , 2776-11 ####[facility] [id number] [place] [id number] [place] Glucose [Mass/Vol] 115 mg/dL High 74-99 [facility] Comment on above: Order Comment: Dottyi men Type: BLOOD SPECIMENOrdering Facility: [facility] Address: [address] [place] [address] Result Comment: The [place] [employer] (ADA) provides guidance for cutoff [...] Standards of Medical Care in Diabetes 2016, [place] [employer]. Diabetes Care. 2016.39(Suppl 1). Performed By: #### 2 4323-8, , 2776-11 ####[facility] [id number] [place] [address] [place] Potassium [Moles/Vol] 4.6 mmol/L Normal 3.7-5.1 [facility] Comment on above: Order Comment: Speci men Type: BLOOD SPECIMENOrdering Facility: [facility] Address: [address] [place] [address] Performed By: #### 2 4323-8, , 2776-11 ####[facility] [id number] [place] [address] [place] Protein [Mass/Vol] 6.1 g/dL Low 6.3-8.0 [facility] Comment on above: Order Comment: Speci men Type: BLOOD SPECIMENOrdering Facility: [facility] Address: [address] [place], [place] [address] Performed By: #### 2 432-8, , 2776-11 ####[facility] [id number] [place] [id number] [place] Sodium [Moles/Vol] 137 mmol/L Normal 136-144 [facility] Comment on above: Order Comment: Speci men Type: BLOOD SPECIMENOrdering Facility: [facility] Address: [address] [place] [address] Performed By: #### 2 432-8, , 2776-11 ####[facility] [id number] [address] [address] [place] Urea nitrogen [Mass/Vol] 13 mg/dL Normal 9-24 [facility] Comment on above: Order Comment: Speci men Type: BLOOD SPECIMENOrdering Facility: [facility] Address: [address] [place] [address] Performed By: #### 2 4323-8, , 2776-11 ####[facility] [id number] [place] [id number] [place] ECG COMPLETEon 04-15-2024 ECG COMPLETE Normal [facility] HISTORY PHYSICALon HISTORY PHYSICAL Normal [facility] Magnesium SerPl-mCncon 04-15 Magnesium [Mass/Vol] 2.3 mg/dL Normal 1.7-2.3 [facility] Comment on above: Order Comment: Speci men Type: BLOOD SPECIMENOrdering Facility: [facility] Address: [address] [place] [address] Performed By: #### 2 4323-8, , 2776-11 ####[facility] [id number] [place] [id number] [place] NURSING PROGon 04-15-2024 NURSING PROG Normal [facility] Phosphate SerPl-mCncon 04-15 Phosphate [Mass/Vol] 3.9 mg/dL Normal 2.7-4.8 [facility] Comment on above: Order Comment: Speci men Type: BLOOD SPECIMENOrdering Facility: [facility] Address: [address] [place], [place] [address] Performed By: #### 2 4323-8, 55675-0, 2776-11 ####[facility] [id number] [address] [address] [place] THERAPY NTon 04-15-2024 THERAPY NT Normal [facility] THERAPY NT Normal [facility] Urinalysis complete panel (U )on 04-15-2024 Bacteria LM.HPF (Urine sed) [#/Area] Negative Normal Negative [facility] Comment on above: Order Comment: Speci men Type: URINE SPECIMENOrdering Facility: [facility] Address: [address] [place] [address] Performed By: #### 2 4356-8 ####[facility] [id number] [place] [address] [place] Bilirubin Ql (U) Negative Normal Negative [facility] Comment on above: Order Comment: Speci men Type: URINE SPECIMENOrdering Facility: [facility] Address: [address] [place] [address] Performed By: #### 2 4356-8 ####[facility] [id number] [place] [address] [place] Clarity (Unsp spec) Clear Normal Clear [place] Comment on above: Order Comment: Speci men Type: URINE SPECIMENOrdering Facility: [facility] Address: [address] [place] [address] Performed By: #### 2 4356-8 ####[facility] [id number] [place] [address] [place] Color (U) Yellow Normal Yellow [facility] Comment on above: Order Comment: Speci men Type: URINE SPECIMENOrdering Facility: [facility] Address: [address] [place] [address] Performed By: #### 2 4356-8 ####[facility] [id number] [place] [address] [place] Epithelial cells LM.HPF (Urine sed) [#/Area] None Seen Normal [facility] Comment on above: Order Comment: Speci men Type: URINE SPECIMENOrdering Facility: [facility] Address: [address] [place] [address] Performed By: #### 2 4356-8 ####[facility] [id number] [place] [address] [place] Glucose Test strip (U) [Mass/Vol] Negative Normal Negative [facility] Comment on above: Order Comment: Speci men Type: URINE SPECIMENOrdering Facility: [facility] Address: [address] [place] [address] Performed By: #### 2 4356-8 ####[facility] [id number] [place] [address] [place] Hemoglobin Ql (U) Negative Normal Negative [facility] Comment on above: Order Comment: Speci men Type: URINE SPECIMENOrdering Facility: [facility] Address: [address] [place] [address] Performed By: #### 2 4356-8 ####[facility] [id number] [place] [address] [place] Hyaline casts (Urine sed) [#/Area] 0 /[LPF] Normal 0 /LPF [facility] Comment on above: Order Comment: Speci men Type: URINE SPECIMENOrdering Facility: [facility] Address: [address] [place] [address] Performed By: #### 2 4356-8 ####[facility] [id number] [place] [address] [place] Ketones Ql (U) Trace Abnormal Negative [facility] Comment on above: Order Comment: Speci men Type: URINE SPECIMENOrdering Facility: [facility] Address: [address] [place] [address] Performed By: #### 2 4356-8 ####[facility] [id number] [place] [address] [place] Leukocyte esterase Test strip Ql (U) Negative Normal Negative [facility] Comment on above: Order Comment: Speci men Type: URINE SPECIMENOrdering Facility: [facility] Address: [address] [place] [address] Performed By: #### 2 4356-8 ####[facility] [id number] [place] [address] [place] Nitrite Ql (U) Negative Normal Negative [facility] Comment on above: Order Comment: Speci men Type: URINE SPECIMENOrdering Facility: [facility] Address: [address] [place] [address] Performed By: #### 2 4356-8 ####[facility] [id number] [place] [address] [place] pH (U) 6.0 [pH] Normal <8.5 [facility] Comment on above: Order Comment: Speci men Type: URINE SPECIMENOrdering Facility: [facility] Address: [address] [place] [address] Performed By: #### 2 4356-8 ####[facility] [id number] [place] [address] [place] Protein (U) [Mass/Vol] Negative Normal Negative [facility] Comment on above: Order Comment: Speci men Type: URINE SPECIMENOrdering Facility: [facility] Address: [address] [place] [address] Performed By: #### 2 4356-8 ####[facility] [id number] [place] [address] [place] RBC LM.HPF (Urine sed) [#/Area] 0-2 /HPF Normal 0-2 /HPF [facility] Comment on above: Order Comment: Speci men Type: URINE SPECIMENOrdering Facility: [facility] Address: [address] [place] [address] Performed By: #### 2 4356-8 ####[facility] [id number] [place] [address] [place] Specific gravity (U) [Rel density] 1.016 Normal 1.005-1.03 0 [facility] Comment on above: Order Comment: Speci men Type: URINE SPECIMENOrdering Facility: [facility] Address: [address] [place] [address] Performed By: #### 2 4356-8 ####[facility] [id number] [place] [address] [place] Urobilinogen Ql (U) 0.2 EU/dL Normal 0.2-1.0 EU/dL [facility] Comment on above: Order Comment: Speci men Type: URINE SPECIMENOrdering Facility: [facility] Address: [address] [place] [address] Performed By: #### 2 4356-8 ####[facility] [id number] [place] [address] [place] WBC LM.HPF (Urine sed) [#/Area] 0-5 /HPF Normal 0-5 /HPF [facility] Comment on above: Order Comment: Speci men Type: URINE SPECIMENOrdering Facility: [facility] Address: [address] [place] [address] Performed By: #### 2 4356-8 ####[facility] [id number] [place] [address] [place] Basic metabolic 2000 panelon 04-14-2024 Anion gap [Moles/Vol] 11 mmol/L Normal 8-15 [facility] Comment on above: Order Comment: Speci men Type: BLOOD SPECIMENOrdering Facility: [facility] Address: [address] [place] [address] Performed By: #### 2 4321-2 ####[facility] [id number] [place] [address] [place] Calcium [Mass/Vol] 8.5 mg/dL Normal 8.5-10.2 [facility] Comment on above: Order Comment: Speci men Type: BLOOD SPECIMENOrdering Facility: [facility] Address: [address] [place] [address] Performed By: #### 2 4321-2 ####[facility] [id number] [place] [address] [place] Chloride [Moles/Vol] 105 mmol/L Normal 98-107 [facility] Comment on above: Order Comment: Speci men Type: BLOOD SPECIMENOrdering Facility: [facility] Address: [address] [place] [address] Performed By: #### 2 4321-2 ####[facility] [id number] [place] [address] [place] CO2 [Moles/Vol] 21 mmol/L Low 22-30 [facility] Comment on above: Order Comment: Speci men Type: BLOOD SPECIMENOrdering Facility: [facility] Address: [address] [place] [address] Performed By: #### 2 4321-2 ####[facility] [id number] [place] [address] [place] Creatinine [Mass/Vol] 0.91 mg/dL Normal 0.73-1.22 [facility] Comment on above: Order Comment: Speci men Type: BLOOD SPECIMENOrdering Facility: [facility] Address: [address] [place] [address] Performed By: #### 2 4321-2 ####[facility] [id number] [place] [address] [place] Creatinine and Glomerular filtration rate.predicted panel (S/P/Bld) 92 mL/min/1.73m??? Normal >=60 [facility] Comment on above: Order Comment: Speci men Type: BLOOD SPECIMENOrdering Facility: [facility] Address: [address] [place] [address] Result Comment: Carol mated Glomerular Filtration Rate [...] reflect actual GFR. Performed By: #### 2 4321-2 ####[facility] [id number] [place] [address] [place] Glucose [Mass/Vol] 86 mg/dL Normal 74-99 [facility] Comment on above: Order Comment: Sara randle Type: BLOOD SPECIMENOrdering Facility: [facility] Address: [address] [place] [address] Result Comment: The [place] [employer] (ADA) provides guidance for cutoff [...] Standards of Medical Care in Diabetes 2016, [place] [employer]. Diabetes Care. 2016.39(Suppl 1). Performed By: #### 2 4321-2 ####[facility] [id number] [place] [id number] [place] Potassium [Moles/Vol] 3.8 mmol/L Normal 3.7-5.1 [facility] Comment on above: Order Comment: Sara randle Type: BLOOD SPECIMENOrdering Facility: [facility] Address: [address] [place] [address] Performed By: #### 2 4321-2 ####[facility] [id number] [place] [address] [place] Sodium [Moles/Vol] 137 mmol/L Normal 136-144 [facility] Comment on above: Order Comment: Speci men Type: BLOOD SPECIMENOrdering Facility: [facility] Address: [address] [place] [address] Performed By: #### 2 4321-2 ####[facility] [id number] [place] [address] [place] Urea nitrogen [Mass/Vol] 11 mg/dL Normal 9-24 [facility] Comment on above: Order Comment: Speci men Type: BLOOD SPECIMENOrdering Facility: [facility] Address: [address] [place] [address] Performed By: #### 2 4321-2 ####[facility] [id number] [place] [address] [place] CASE MANAGEMon 04-14-2024 CASE MANAGEM Normal [facility] CBC W Auto Differential pane l (Bld)on 04-14-2024 Basophils (Bld) [#/Vol] 0.00 10*3/uL Normal <0.11 [facility] Comment on above: Order Comment: Speci men Type: BLOOD SPECIMENOrdering Facility: [facility] Address: [address] [place] [address] Performed By: #### 5 7021-8 ####[facility] [id number] [place] [address] [place] Basophils/100 WBC (Bld) 0.0 % Normal [facility] Comment on above: Order Comment: Speci men Type: BLOOD SPECIMENOrdering Facility: [facility] Address: [address] [place] [address] Performed By: #### 5 7021-8 ####[facility] [id number] [place] [address] [place] Differential cell count method Nom (Bld) Manual Normal [facility] Comment on above: Order Comment: Speci men Type: BLOOD SPECIMENOrdering Facility: [facility] Address: [address] [place] [address] Performed By: #### 5 7021-8 ####[facility] [id number] [place] [address] [place] Eosinophils (Bld) [#/Vol] 0.19 10*3/uL Normal <0.46 [facility] Comment on above: Order Comment: Speci men Type: BLOOD SPECIMENOrdering Facility: [facility] Address: [address] [place] [address] Performed By: #### 5 7021-8 ####[facility] [id number] [place] [address] [place] Eosinophils/100 WBC (Bld) 23.0 % Normal [facility] Comment on above: Order Comment: Speci men Type: BLOOD SPECIMENOrdering Facility: [facility] Address: [address] [place] [address] Performed By: #### 5 7021-8 ####[facility] [id number] [place] [address] [place] Erythrocyte distribution width (RBC) [Ratio] 14.4 % Normal 11.5-15.0 [facility] Comment on above: Order Comment: Speci men Type: BLOOD SPECIMENOrdering Facility: [facility] Address: [address] [place] [address] Performed By: #### 5 7021-8 ####[facility] [id number] [place] [address] [place] Hematocrit (Bld) [Volume fraction] 30.7 % Low 39.0-51.0 [facility] Comment on above: Order Comment: Speci men Type: BLOOD SPECIMENOrdering Facility: [facility] Address: [address] [place] [address] Performed By: #### 5 7021-8 ####[facility] [id number] [place] [address] [place] Hemoglobin (Bld) [Mass/Vol] 10.4 g/dL Low 13.0-17.0 [facility] Comment on above: Order Comment: Speci men Type: BLOOD SPECIMENOrdering Facility: [facility] Address: [address] [place] [address] Performed By: #### 5 7021-8 ####[facility] [id number] [place] [address] [place] Lymphocytes (Bld) [#/Vol] 0.13 10*3/uL Low 1.00-4.00 [facility] Comment on above: Order Comment: Speci men Type: BLOOD SPECIMENOrdering Facility: [facility] Address: [address] [place] [address] Performed By: #### 5 7021-8 ####[facility] [id number] [place] [address] [place] Lymphocytes/100 WBC (Bld) 16.0 % Normal [facility] Comment on above: Order Comment: Speci men Type: BLOOD SPECIMENOrdering Facility: [facility] Address: [address] [place] [address] Performed By: #### 5 7021-8 ####[facility] [id number] [place] [address] [place] MCH (RBC) [Entitic mass] 30.4 pg Normal 26.0-34.0 [facility] Comment on above: Order Comment: Speci men Type: BLOOD SPECIMENOrdering Facility: [facility] Address: [address] [place] [address] Performed By: #### 5 7021-8 ####[facility] [id number] [place] [address] [place] MCHC (RBC) [Mass/Vol] 33.9 g/dL Normal 30.5-36.0 [facility] Comment on above: Order Comment: Speci men Type: BLOOD SPECIMENOrdering Facility: [facility] Address: [address] [place] [address] Performed By: #### 5 7021-8 ####[facility] [id number] [place] [address] [place] MCV (RBC) [Entitic vol] 89.8 fL Normal 80.0-100.0 [facility] Comment on above: Order Comment: Speci men Type: BLOOD SPECIMENOrdering Facility: [facility] Address: [address] [place] [address] Performed By: #### 5 7021-8 ####[facility] [id number] [place] [address] [place] Monocytes (Bld) [#/Vol] 0.16 10*3/uL Normal <0.87 [facility] Comment on above: Order Comment: Speci men Type: BLOOD SPECIMENOrdering Facility: [facility] Address: [address] [place] [address] Performed By: #### 5 7021-8 ####[facility] [id number] [place] [address] [place] Monocytes/100 WBC (Bld) 19.0 % Normal [facility] Comment on above: Order Comment: Speci men Type: BLOOD SPECIMENOrdering Facility: [facility] Address: [address] [place] [address] Performed By: #### 5 7021-8 ####[facility] [id number] [place] [address] [place] Neutrophils (Bld) [#/Vol] 0.35 10*3/uL Low 1.45-7.50 [facility] Comment on above: Order Comment: Speci men Type: BLOOD SPECIMENOrdering Facility: [facility] Address: [address] [place] [address] Performed By: #### 5 7021-8 ####[facility] [id number] [place] [address] [place] Neutrophils/100 WBC (Bld) 42.0 % Normal [facility] Comment on above: Order Comment: Speci men Type: BLOOD SPECIMENOrdering Facility: [facility] Address: [address] [place] [address] Performed By: #### 5 7021-8 ####[facility] [id number] [place] [address] [place] Nucleated RBC (Bld) [#/Vol] 10*3/uL Normal <0.01 [facility] Comment on above: Order Comment: Speci men Type: BLOOD SPECIMENOrdering Facility: [facility] Address: [address] [place] [address] Performed By: #### 5 7021-8 ####[facility] [id number] [place] [address] [place] Nucleated RBC/100 WBC (Bld) [Ratio] 0.0 /100 WBC Normal [facility] Comment on above: Order Comment: Speci men Type: BLOOD SPECIMENOrdering Facility: [facility] Address: [address] [place] [address] Performed By: #### 5 7021-8 ####[facility] [id number] [place] [address] [place] Ovalocytes LM Ql (Bld) Few Normal [facility] Comment on above: Order Comment: Speci men Type: BLOOD SPECIMENOrdering Facility: [facility] Address: [address] [place] [address] Performed By: #### 5 7021-8 ####[facility] [id number] [place] [address] [place] Platelet mean volume (Bld) [Entitic vol] 12.3 fL Normal 9.0-12.7 [facility] Comment on above: Order Comment: Speci men Type: BLOOD SPECIMENOrdering Facility: [facility] Address: [address] [place] [address] Performed By: #### 5 7021-8 ####[facility] [id number] [place] [address] [place] Platelets (Bld) [#/Vol] 39 10*3/uL Low 150-400 [facility] Comment on above: Order Comment: Speci men Type: BLOOD SPECIMENOrdering Facility: [facility] Address: [address] [place] [address] Performed By: #### 5 7021-8 ####[facility] [id number] [place] [address] [place] Platelets Estimate (Bld) [#/Vol] Decreased Normal [facility] Comment on above: Order Comment: Speci men Type: BLOOD SPECIMENOrdering Facility: [facility] Address: [address] [place] [address] Performed By: #### 5 7021-8 ####[facility] [id number] [place] [address] [place] Polychromasia LM Ql (Bld) Slight Normal [facility] Comment on above: Order Comment: Speci men Type: BLOOD SPECIMENOrdering Facility: [facility] Address: [address] [place] [address] Performed By: #### 5 7021-8 ####[facility] [id number] [place] [address] [place] RBC (Bld) [#/Vol] 3.42 10*6/uL Low 4.20-6.00 [place] Comment on above: Order Comment: Speci men Type: BLOOD SPECIMENOrdering Facility: [facility] Address: [address] [place] [address] Performed By: #### 5 7021-8 ####[facility] [id number] [place] [address] [place] RBC FRAGMENTS Few Abnormal None Seen [facility] Comment on above: Order Comment: Speci men Type: BLOOD SPECIMENOrdering Facility: [facility] Address: [address] [place] [address] Performed By: #### 5 7021-8 ####[facility] [id number] [place] [address] [place] RED CELL MORPH Reviewed: see result s of individual morphologies Normal [facility] Comment on above: Order Comment: Speci men Type: BLOOD SPECIMENOrdering Facility: [facility] Address: [address] [place] [address] Performed By: #### 5 7021-8 ####[facility] [id number] [place] [address] [place] Toxic granules LM Ql (Bld) Present Normal [facility] Comment on above: Order Comment: Speci men Type: BLOOD SPECIMENOrdering Facility: [facility] Address: [address] [place] [address] Performed By: #### 5 7021-8 ####[facility] [id number] [place] [address] [place] WBC (Bld) [#/Vol] 0.84 10*3/uL Low 3.70-11.00 [place] Comment on above: Order Comment: Speci men Type: BLOOD SPECIMENOrdering Facility: [facility] Address: [address] [place] [address] Result Comment: No c lot detected. Performed By: #### 5 7021-8 ####[facility] [id number] [place] [address] [place] Basophils (Bld) [#/Vol] 0.01 10*3/uL Normal <0.11 [facility] Comment on above: Order Comment: Speci men Type: BLOOD SPECIMENOrdering Facility: [facility] Address: [address] [place] [address] Performed By: #### 5 7021-8 ####[facility] [id number] [place] [address] [place] Basophils/100 WBC (Bld) 1.8 % Normal [facility] Comment on above: Order Comment: Speci men Type: BLOOD SPECIMENOrdering Facility: [facility] Address: [address] [place] [address] Performed By: #### 5 7021-8 ####[facility] [id number] [place] [address] [place] Differential cell count method Nom (Bld) Manual Normal [facility] Comment on above: Order Comment: Speci men Type: BLOOD SPECIMENOrdering Facility: [facility] Address: [address] [place] [address] Performed By: #### 5 7021-8 ####[facility] LABCLIA [id number] [place] [address] [place] Eosinophils (Bld) [#/Vol] 0.18 10*3/uL Normal <0.46 [facility] Comment on above: Order Comment: Speci men Type: BLOOD SPECIMENOrdering Facility: [facility] Address: [address] [place] [address] Performed By: #### 5 7021-8 ####[facility] LABCLIA [id number] [place] [address] [place] Eosinophils/100 WBC (Bld) 33.9 % Normal [facility] Comment on above: Order Comment: Speci men Type: BLOOD SPECIMENOrdering Facility: [facility] Address: [address] [place] [address] Performed By: #### 5 7021-8 ####[facility] LABCLIA [id number] [place] [address] [place] Erythrocyte distribution width (RBC) [Ratio] 14.3 % Normal 11.5-15.0 [facility] Comment on above: Order Comment: Speci men Type: BLOOD SPECIMENOrdering Facility: [facility] Address: [address] [place] [address] Performed By: #### 5 7021-8 ####[facility] LABIA [id number] [place] [address] [place] Hematocrit (Bld) [Volume fraction] 31.4 % Low 39.0-51.0 [facility] Comment on above: Order Comment: Speci men Type: BLOOD SPECIMENOrdering Facility: [facility] Address: [address] [place] [address] Performed By: #### 5 7021-8 ####[facility] LABIA [id number] [place] [address] [place] Hemoglobin (Bld) [Mass/Vol] 10.7 g/dL Low 13.0-17.0 [facility] Comment on above: Order Comment: Speci men Type: BLOOD SPECIMENOrdering Facility: [facility] Address: [address] [place] [address] Performed By: #### 5 7021-8 ####[facility] LABIA [id number] [place] [address] [place] Lymphocytes (Bld) [#/Vol] 0.09 10*3/uL Low 1.00-4.00 [facility] Comment on above: Order Comment: Speci men Type: BLOOD SPECIMENOrdering Facility: [facility] Address: [address] [place] [address] Performed By: #### 5 7021-8 ####[facility] LABIA [id number] [place] [address] [place] Lymphocytes/100 WBC (Bld) 16.1 % Normal [facility] Comment on above: Order Comment: Speci men Type: BLOOD SPECIMENOrdering Facility: [facility] Address: [address] [place] [address] Performed By: #### 5 7021-8 ####[facility] LABIA [id number] [place] [address] [place] MCH (RBC) [Entitic mass] 30.4 pg Normal 26.0-34.0 [facility] Comment on above: Order Comment: Speci men Type: BLOOD SPECIMENOrdering Facility: [facility] Address: [address] [place] [address] Performed By: #### 5 7021-8 ####[facility]UN[facility] [id number] [place] [address] [place] MCHC (RBC) [Mass/Vol] 34.1 g/dL Normal 30.5-36.0 [facility] Comment on above: Order Comment: Speci men Type: BLOOD SPECIMENOrdering Facility: [facility] Address: [address] [place] [address] Performed By: #### 5 7021-8 ####[facility] [id number] [place] [address] [place] MCV (RBC) [Entitic vol] 89.2 fL Normal 80.0-100.0 [facility] Comment on above: Order Comment: Speci men Type: BLOOD SPECIMENOrdering Facility: [facility] Address: [address] [place] [address] Performed By: #### 5 7021-8 ####[facility]UN[facility] [id number] [place] [address] [place] Monocytes (Bld) [#/Vol] 0.12 10*3/uL Normal <0.87 [facility] Comment on above: Order Comment: Speci men Type: BLOOD SPECIMENOrdering Facility: [facility] Address: [address] [place] [address] Performed By: #### 5 7021-8 ####[facility] LABIA [id number] [place] [address] [place] Monocytes/100 WBC (Bld) 22.3 % Normal [facility] Comment on above: Order Comment: Speci men Type: BLOOD SPECIMENOrdering Facility: [facility] Address: [address] [place] [address] Performed By: #### 5 7021-8 ####[facility] LABCLIA [id number] [place] [address] [place] Neutrophils (Bld) [#/Vol] 0.14 10*3/uL Low 1.45-7.50 [facility] Comment on above: Order Comment: Speci men Type: BLOOD SPECIMENOrdering Facility: [facility] Address: [address] [place] [address] Performed By: #### 5 7021-8 ####[facility] LABCLIA [id number] [place] [address] [place] Neutrophils/100 WBC (Bld) 25.9 % Normal [facility] Comment on above: Order Comment: Speci men Type: BLOOD SPECIMENOrdering Facility: [facility] Address: [address] [place] [address] Performed By: #### 5 7021-8 ####[facility] LABCLIA [id number] [place] [address] [place] Nucleated RBC (Bld) [#/Vol] 10*3/uL Normal <0.01 [facility] Comment on above: Order Comment: Speci men Type: BLOOD SPECIMENOrdering Facility: [facility] Address: [address] [place] [address] Performed By: #### 5 7021-8 ####[facility] LABCLIA [id number] [place] [address] [place] Nucleated RBC/100 WBC (Bld) [Ratio] 0.9 /100 WBC Normal [facility] Comment on above: Order Comment: Speci men Type: BLOOD SPECIMENOrdering Facility: [facility] Address: [address] [place] [address] Performed By: #### 5 7021-8 ####[facility] LABCLIA [id number] [place] [address] [place] Ovalocytes LM Ql (Bld) Few Normal [facility] Comment on above: Order Comment: Speci men Type: BLOOD SPECIMENOrdering Facility: [facility] Address: [address] [place] [address] Performed By: #### 5 7021-8 ####[facility] LABCLIA [id number] [place] [address] [place] Platelet mean volume (Bld) [Entitic vol] 10.7 fL Normal 9.0-12.7 [facility] Comment on above: Order Comment: Speci men Type: BLOOD SPECIMENOrdering Facility: [facility] Address: [address] [place] [address] Performed By: #### 5 7021-8 ####[facility] LABIA [id number] [place] [address] [place] Platelets (Bld) [#/Vol] 41 10*3/uL Low 150-400 [facility] Comment on above: Order Comment: Speci men Type: BLOOD SPECIMENOrdering Facility: [facility] Address: [address] [place] [address] Result Comment: Resu lts checked and verified.No clot detected. Performed By: #### 5 7021-8 ####[facility] LABCLIA [id number] [place] [address] [place] Platelets Estimate (Bld) [#/Vol] Decreased Normal [facility] Comment on above: Order Comment: Speci men Type: BLOOD SPECIMENOrdering Facility: [facility] Address: [address] [place] [address] Performed By: #### 5 7021-8 ####[facility] LABCLIA [id number] [place] [address] [place] Polychromasia LM Ql (Bld) Slight Normal [facility] Comment on above: Order Comment: Speci men Type: BLOOD SPECIMENOrdering Facility: [facility] Address: [address] [place] [address] Performed By: #### 5 7021-8 ####[facility] LABCLIA [id number] [place] [address] [place] RBC (Bld) [#/Vol] 3.52 10*6/uL Low 4.20-6.00 [place] Comment on above: Order Comment: Speci men Type: BLOOD SPECIMENOrdering Facility: [facility] Address: [address] [place] [address] Performed By: #### 5 7021-8 ####[facility] LABCLIA [id number] [place] [address] [place] RBC FRAGMENTS Few Abnormal None Seen [facility] Comment on above: Order Comment: Speci men Type: BLOOD SPECIMENOrdering Facility: [facility] Address: [address] [place] [address] Performed By: #### 5 7021-8 ####[facility] LABCLIA [id number] [place] [address] [place] RED CELL MORPH Reviewed: see result s of individual morphologies Normal [facility] Comment on above: Order Comment: Speci men Type: BLOOD SPECIMENOrdering Facility: [facility] Address: [address] [place] [address] Performed By: #### 5 7021-8 ####[facility] LABCLIA [id number] [place] [address] [place] WBC (Bld) [#/Vol] 0.53 10*3/uL Low 3.70-11.00 [place] Comment on above: Order Comment: Speci men Type: BLOOD SPECIMENOrdering Facility: [facility] Address: [address] [place], [place] [address] Result Comment: Resu lts checked and verified.No clot detected. Performed By: #### 5 7021-8 ####[facility] LABCLIA [id number] [place] [id number] [place] CNDSon 04-14-2024 CNDS Normal [facility] CNPNon 04-14-2024 CNPN Normal [facility] CRP SerPl-mCncon 04-14-2024 CRP [Mass/Vol] 1.2 mg/dL High <0.9 [facility] Comment on above: Order Comment: Speci men Type: BLOOD SPECIMENOrdering Facility: [facility] Address: [address] [place] [address] Performed By: #### 1 988-5, 53450-6, 3084-1, 2777-1, 2276-4, HSTNT ####[facility] LABCLIA [id number] [place] [address] [place] BRAIN WO IVCONon 04-14-[address] BRAIN WO IVCON Normal [facility] Comprehensive metabolic 2000 panelon 04-14-2024 Albumin [Mass/Vol] 3.2 g/dL Low 3.9-4.9 [facility] Comment on above: Order Comment: Speci men Type: BLOOD SPECIMENOrdering Facility: [facility] Address: [address] [place] [address] Performed By: #### 2 4323-8, 2531-0 ####[facility] LABCLIA [id number] [place] [id number] [place] ALP [Catalytic activity/Vol] 107 U/L Normal 38-113 [facility] Comment on above: Order Comment: Speci men Type: BLOOD SPECIMENOrdering Facility: [facility] Address: [address] [place] [address] Performed By: #### 2 4323-8, 2532-0 ####[facility] LABCLIA [id number] [place] [address] [place] ALT [Catalytic activity/Vol] 31 U/L Normal 10-54 [facility] Comment on above: Order Comment: Speci men Type: BLOOD SPECIMENOrdering Facility: [facility] Address: [address] [place] [address] Performed By: #### 2 4323-8, 2532-0 ####[facility] LABCLIA [id number] [place] [address] [place] Anion gap [Moles/Vol] 12 mmol/L Normal 8-15 [facility] Comment on above: Order Comment: Speci men Type: BLOOD SPECIMENOrdering Facility: [facility] Address: [address] [place] [address] Performed By: #### 2 4323-8, 2532-0 ####[facility] LABCLIA [id number] [place] [address] [place] AST [Catalytic activity/Vol] 28 U/L Normal 14-40 [facility] Comment on above: Order Comment: Speci men Type: BLOOD SPECIMENOrdering Facility: [facility] Address: [address] [place] [address] Performed By: #### 2 4323-8, 2532-0 ####[facility] LABCLIA [id number] [place] [address] [place] Bilirubin [Mass/Vol] 0.4 mg/dL Normal 0.2-1.3 [facility] Comment on above: Order Comment: Speci men Type: BLOOD SPECIMENOrdering Facility: [facility] Address: [address] [place] [address] Performed By: #### 2 4323-8, 2532-0 ####[facility] LABCLIA [id number] [place] [id number] [place] Calcium [Mass/Vol] 8.0 mg/dL Low 8.5-10.2 [facility] Comment on above: Order Comment: Speci men Type: BLOOD SPECIMENOrdering Facility: [facility] Address: [address] [place] [address] Performed By: #### 2 4323-8, 2531-0 ####[facility] LABCLIA [id number] [place] [id number] [place] Chloride [Moles/Vol] 106 mmol/L Normal 98-107 [facility] Comment on above: Order Comment: Speci men Type: BLOOD SPECIMENOrdering Facility: [facility] Address: [address] [place] [address] Performed By: #### 2 4323-8, 2531-0 ####[facility] LABCLIA [id number] [place] [address] [place] CO2 [Moles/Vol] 20 mmol/L Low 22-30 [facility] Comment on above: Order Comment: Speci men Type: BLOOD SPECIMENOrdering Facility: [facility] Address: [address] [place] [address] Performed By: #### 2 4323-8, 2531-0 ####[facility] LABCLIA [id number] [place] [address] [place] Creatinine [Mass/Vol] 1.04 mg/dL Normal 0.73-1.22 [facility] Comment on above: Order Comment: Speci men Type: BLOOD SPECIMENOrdering Facility: [facility] Address: [address] [place] [address] Performed By: #### 2 4323-8, 2531-0 ####[facility] LABCLIA [id number] [place] [address] [place] Creatinine and Glomerular filtration rate.predicted panel (S/P/Bld) 79 mL/min/1.73m??? Normal >=60 [facility] Comment on above: Order Comment: Speci men Type: BLOOD SPECIMENOrdering Facility: [facility] Address: [address] [place] [address] Result Comment: Carol mated Glomerular Filtration Rate [...] actual GFR. Performed By: #### 2 4323-8, 0 ####[facility] LABIA [id number] [place] [address] [place] Glucose [Mass/Vol] 80 mg/dL Normal 74-99 [facility] Comment on above: Order Comment: Speci men Type: BLOOD SPECIMENOrdering Facility: [facility] Address: [address] [place] [address] Result Comment: The [place] [employer] (ADA) provides guidance for cutoff [...] Standards of Medical Care in Diabetes 2016, [place] [employer]. Diabetes Care. 2016.39(Suppl 1). Performed By: #### 2 4323-8, ####[facility] LABIA [id number] [place] [id number] [place] Potassium [Moles/Vol] 4.0 mmol/L Normal 3.7-5.1 [facility] Comment on above: Order Comment: Speci men Type: BLOOD SPECIMENOrdering Facility: [facility] Address: [address] [place] [address] Performed By: #### 2 4323-8, 2532-0 ####[facility] LABCLIA [id number] [address] [address] [place] Protein [Mass/Vol] 5.2 g/dL Low 6.3-8.0 [facility] Comment on above: Order Comment: Speci men Type: BLOOD SPECIMENOrdering Facility: [facility] Address: [address] [place] [address] Performed By: #### 2 4323-8, 2531-0 ####[facility] LABIA [id number] [place] [id number] [place] Sodium [Moles/Vol] 138 mmol/L Normal 136-144 [facility] Comment on above: Order Comment: Speci men Type: BLOOD SPECIMENOrdering Facility: [facility] Address: [address] [place] [address] Performed By: #### 2 4328, 2531-0 ####[facility] LABIA [id number] [place] [id number] [place] Urea nitrogen [Mass/Vol] 9 mg/dL Normal 9-24 [facility] Comment on above: Order Comment: Speci men Type: BLOOD SPECIMENOrdering Facility: [facility] Address: [address] [place] [address] Performed By: #### 2 4323-8, 2531-0 ####[facility] LABIA [id number] [place] [id number] [place] ECG COMPLETEon 04-14-2024 ECG COMPLETE Normal [facility] ED NOTEon 04-14-2024 ED NOTE HNO ID: [id number] Author: SEPIDEH GARBER RN Service: ? Author Type: Registered Nurse Type: ED Notes Filed: 04/14/2024 19:07 Note Text: Bed: E12-14 Expected date: Expected time: Means of arrival: Comments: Kaushik Normal [facility] ED PROV NOTEon 04-14-2024 ED PROV NOTE Normal [facility] ED Triage Noteon 04-14-2024 ED Triage Note Normal [facility] Ferritin SerPl-mCncon 2023 Ferritin [Mass/Vol] 546.0 ng/mL Normal 30.3-565.7 [facility] Comment on above: Order Comment: Sara randle Type: BLOOD SPECIMENOrdering Facility: [facility] Address: [address] [place] [address] Performed By: #### 1 988-5, 71663-3, 3084-1, 2777-1, 2276-4, HSTNT ####[facility] LABCLIA [id number] [place] [address] [place] HIGH SENSITIVITY TROPONIN To n 04-14-2024 Troponin T.cardiac High sensitivity method [Mass/Vol] 11 ng/L Normal <12 [facility] Comment on above: Order Comment: Sara randle Type: BLOOD SPECIMENOrdering Facility: [facility] Address: [address] [place] [address] Result Comment: When assessing risk for acute coronary syndromes: In patients undergoing blood draw greater than or equal to 2 hours from symptom onset, with history of very low to moderate risk and non-ischemic ECG, an initial hs-Troponin T less than 12 ng/L AND a 1 hour delta hs-Troponin T less than 3 ng/L should be considered very low risk for 30 day MACE. Performed By: #### 1 988-5, 86750-8, 3084-1, 2777-1, 6-4, HSTNT ####[facility] LABIA [id number] [place] [id number] [place] LDH SerPl-cCncon 04-14-2024 LDH [Catalytic activity/Vol] 227 U/L High 135-225 [facility] Comment on above: Order Comment: Sara randle Type: BLOOD SPECIMENOrdering Facility: [facility] Address: [address] [place] [address] Result Comment: Hemo lysis present. The origin of the hemolysis, in vitro versus an in vivo hemolytic process, cannot be distinguished via this assay alone. In vitro hemolysis may lead to non-physiological (spurious) elevation in lactate dehydrogenase (LDH) results. Theresult should be interpreted in context of the clinical setting and other test results. Suggest reorder as clinically indicated. Performed By: #### 2 4323-8, 2532-0 ####[facility] LABCLIA [id number] [place] [id number] [place] Magnesium SerPl-mCncon 04-14 Magnesium [Mass/Vol] 2.1 mg/dL Normal 1.7-2.3 [facility] Comment on above: Order Comment: Speci men Type: BLOOD SPECIMENOrdering Facility: [facility] Address: [address] [place] [address] Performed By: #### 1 988-5, 71034-7, 3084-1, 2777-1, 2276-4, HSTNT ####[facility] LABIA [id number] [place] [id number] [place] NURSING PROGon 04-14-2024 NURSING PROG Normal [facility] NURSING PROG Normal [facility] Phosphate SerPl-ncon 04-14 Phosphate [Mass/Vol] 2.9 mg/dL Normal 2.7-4.8 [facility] Comment on above: Order Comment: Speci men Type: BLOOD SPECIMENOrdering Facility: [facility] Address: [address] [place] [address] Performed By: #### 1 988-5, 36320-0, 3084-1, 2777-1, 2276-4, HSTNT ####[facility]IA [id number] [place] [id number] [place] SOCIAL WORKon 04-14-2024 SOCIAL WORK Normal [facility] TYPE + SCREENon 04-14-2024 ABO B Normal [facility] Comment on above: Order Comment: Speci men Type: BLOOD SPECIMENOrdering Facility: [facility] Address: [address] [place] [address] Performed By: #### T SCR ####[facility] BLO[facility] BANKCLIA [id number] [address] [place] [facility] HISTORICAL AB SCR STATUS Negative Normal [facility] Comment on above: Order Comment: Speci men Type: BLOOD SPECIMENOrdering Facility: [facility] Address: [address] [place] [address] Performed By: #### T SCR ####[facility] BLO[facility] BANKCLIA [id number] [place] [address] [place] Rh Nom (Bld) Negative Normal [facility] Comment on above: Order Comment: Speci men Type: BLOOD SPECIMENOrdering Facility: [facility] Address: [address] [place] [address] Performed By: #### T SCR ####[facility] BLO[facility] BANKCLIA [id number] [address] [place] [facility] TYPE AND SCREEN EXPIRATION 04/17/2024 23:59 Normal [facility] Comment on above: Order Comment: Speci men Type: BLOOD SPECIMENOrdering Facility: [facility] Address: [address] [place] [address] Performed By: #### T SCR ####[facility] BLOOD BANKCLIA [id number] [place] [address] [place] Urate SerPl-mCncon 4 Urate [Mass/Vol] 3.1 mg/dL Low 4.0-8.1 [facility] Comment on above: Order Comment: Speci men Type: BLOOD SPECIMENOrdering Facility: [facility] Address: [address] [place] [address] Performed By: #### 1 988-5, 65291-2, 3084-1, 2777-1, 2276-4, HSTNT ####[facility] LABCLIA [id number] [place] [address] [place] CBC W Auto Differential pane l (Bld)on 04-13-2024 Basophils (Bld) [#/Vol] Normal [facility] Comment on above: Order Comment: Speci men Type: BLOOD SPECIMENOrdering Facility: [facility] Address: [address] [place] [address] Result Comment: Too Few Cells To Do Differential. Performed By: #### 5 7021-8 ####[facility] LABCLIA [id number] [place] [address] [place] Basophils/100 WBC (Bld) Normal [facility] Comment on above: Order Comment: Speci men Type: BLOOD SPECIMENOrdering Facility: [facility] Address: [address] [place] [address] Result Comment: Too Few Cells To Do Differential. Performed By: #### 5 7021-8 ####[facility] LABCLIA [id number] [place] [address] [place] Differential cell count method Nom (Bld) Auto Normal [facility] Comment on above: Order Comment: Speci men Type: BLOOD SPECIMENOrdering Facility: [facility] Address: [address] [place] [address] Performed By: #### 5 7021-8 ####[facility] LABCL[facility] [id number] [place] [address] [place] Eosinophils (Bld) [#/Vol] Normal [facility] Comment on above: Order Comment: Speci men Type: BLOOD SPECIMENOrdering Facility: [facility] Address: [address] [place] [address] Result Comment: Too Few Cells To Do Differential. Performed By: #### 5 7021-8 ####[facility]CL[facility] [id number] [place] [address] [place] Eosinophils/100 WBC (Bld) Normal [facility] Comment on above: Order Comment: Speci men Type: BLOOD SPECIMENOrdering Facility: [facility] Address: [address] [place], [place] [address] Result Comment: Too Few Cells To Do Differential. Performed By: #### 5 7021-8 ####[facility] LABCLIA [id number] [place] [address] [place] Erythrocyte distribution width (RBC) [Ratio] 14.3 % Normal 11.5-15.0 [facility] Comment on above: Order Comment: Speci men Type: BLOOD SPECIMENOrdering Facility: [facility] Address: [address] [place] [address] Performed By: #### 5 7021-8 ####[facility] LABIA [id number] [place] [address] [place] Hematocrit (Bld) [Volume fraction] 29.4 % Low 39.0-51.0 [facility] Comment on above: Order Comment: Speci men Type: BLOOD SPECIMENOrdering Facility: [facility] Address: [address] [place] [address] Performed By: #### 5 7021-8 ####[facility] LABIA [id number] [place] [address] [place] Hemoglobin (Bld) [Mass/Vol] 10.1 g/dL Low 13.0-17.0 [facility] Comment on above: Order Comment: Speci men Type: BLOOD SPECIMENOrdering Facility: [facility] Address: [address] [place] [address] Performed By: #### 5 7021-8 ####[facility]CL[facility] [id number] [place] [address] [place] Immature granulocytes (Bld) [#/Vol] Normal [facility] Comment on above: Order Comment: Speci men Type: BLOOD SPECIMENOrdering Facility: [facility] Address: [address] [place] [address] Result Comment: Too Few Cells To Do Differential. Performed By: #### 5 7021-8 ####[facility] LABCLIA [id number] [place] [address] [place] Immature granulocytes/100 WBC (Bld) Normal [facility] Comment on above: Order Comment: Speci men Type: BLOOD SPECIMENOrdering Facility: [facility] Address: [address] [place] [address] Result Comment: Too Few Cells To Do Differential. Performed By: #### 5 7021-8 ####[facility] [id number] [place] [address] [place] Lymphocytes (Bld) [#/Vol] Normal [facility] Comment on above: Order Comment: Speci men Type: BLOOD SPECIMENOrdering Facility: [facility] Address: [address] [place] [address] Result Comment: Too Few Cells To Do Differential. Performed By: #### 5 7021-8 ####[facility] [id number] [place] [address] [place] Lymphocytes/100 WBC (Bld) Normal [facility] Comment on above: Order Comment: Speci men Type: BLOOD SPECIMENOrdering Facility: [facility] Address: [address] [place] [address] Result Comment: Too Few Cells To Do Differential. Performed By: #### 5 7021-8 ####[facility] [id number] [place] [address] [place] MCH (RBC) [Entitic mass] 30.7 pg Normal 26.0-34.0 [facility] Comment on above: Order Comment: Speci men Type: BLOOD SPECIMENOrdering Facility: [facility] Address: [address] [place] [address] Performed By: #### 5 7021-8 ####[facility] [id number] [place] [address] [place] MCHC (RBC) [Mass/Vol] 34.4 g/dL Normal 30.5-36.0 [facility] Comment on above: Order Comment: Speci men Type: BLOOD SPECIMENOrdering Facility: [facility] Address: [address] [place] [address] Performed By: #### 5 7021-8 ####[facility] [id number] [place] [address] [place] MCV (RBC) [Entitic vol] 89.4 fL Normal 80.0-100.0 [facility] Comment on above: Order Comment: Speci men Type: BLOOD SPECIMENOrdering Facility: [facility] Address: [address] [place] [address] Performed By: #### 5 7021-8 ####[facility] [id number] [place] [address] [place] Monocytes (Bld) [#/Vol] Normal [facility] Comment on above: Order Comment: Speci men Type: BLOOD SPECIMENOrdering Facility: [facility] Address: [address] [place] [address] Result Comment: Too Few Cells To Do Differential. Performed By: #### 5 7021-8 ####[facility] [id number] [place] [address] [place] Monocytes/100 WBC (Bld) Normal [facility] Comment on above: Order Comment: Speci men Type: BLOOD SPECIMENOrdering Facility: [facility] Address: [address] [place] [address] Result Comment: Too Few Cells To Do Differential. Performed By: #### 5 7021-8 ####[facility] [id number] [place] [address] [place] Neutrophils (Bld) [#/Vol] Normal [facility] Comment on above: Order Comment: Speci men Type: BLOOD SPECIMENOrdering Facility: [facility] Address: [address] [place] [address] Result Comment: Too Few Cells To Do Differential. Performed By: #### 5 7021-8 ####[facility] [id number] [place] [address] [place] Neutrophils/100 WBC (Bld) Normal [facility] Comment on above: Order Comment: Speci men Type: BLOOD SPECIMENOrdering Facility: [facility] Address: [address] [place] [address] Result Comment: Too Few Cells To Do Differential. Performed By: #### 5 7021-8 ####[facility] [id number] [place] [address] [place] Nucleated RBC (Bld) [#/Vol] 10*3/uL Normal <0.01 [facility] Comment on above: Order Comment: Speci men Type: BLOOD SPECIMENOrdering Facility: [facility] Address: [address] [place] [address] Performed By: #### 5 7021-8 ####[facility] LABIA [id number] [place] [address] [place] Nucleated RBC/100 WBC (Bld) [Ratio] 0.0 /100 WBC Normal [facility] Comment on above: Order Comment: Speci men Type: BLOOD SPECIMENOrdering Facility: [facility] Address: [address] [place] [address] Performed By: #### 5 7021-8 ####[facility]IA [id number] [place] [address] [place] Platelet mean volume (Bld) [Entitic vol] 11.6 fL Normal 9.0-12.7 [facility] Comment on above: Order Comment: Speci men Type: BLOOD SPECIMENOrdering Facility: [facility] Address: [address] [place] [address] Performed By: #### 5 7021-8 ####[facility]IA [id number] [place] [address] [place] Platelets (Bld) [#/Vol] 32 10*3/uL Low 150-400 [facility] Comment on above: Order Comment: Speci men Type: BLOOD SPECIMENOrdering Facility: [facility] Address: [address] [place] [address] Result Comment: No c lot detected.Checked and Verified\X09\ Performed By: #### 5 7021-8 ####[facility] [id number] [place] [address] [place] RBC (Bld) [#/Vol] 3.29 10*6/uL Low 4.20-6.00 [place] Comment on above: Order Comment: Speci men Type: BLOOD SPECIMENOrdering Facility: [facility] Address: [address] [place] [address] Performed By: #### 5 7021-8 ####[facility]CL[facility] [id number] [place] [address] [place] WBC (Bld) [#/Vol] 0.30 10*3/uL Low 3.70-11.00 [place] Comment on above: Order Comment: Speci men Type: BLOOD SPECIMENOrdering Facility: [facility] Address: [address] [place] [address] Result Comment: Too Few Cells To Do DifferentialNo clot detected. Performed By: #### 5 7021-8 ####[facility] [id number] [place] [address] [place] CRP SerPl-mCncon 04-13-2024 CRP [Mass/Vol] 1.7 mg/dL High <0.9 [facility] Comment on above: Order Comment: Speci men Type: BLOOD SPECIMENOrdering Facility: [facility] Address: [address] [place] [address] Performed By: #### 2 777-1, 2276-4, 1988-5, 19486-7, 3084-1 ####[facility]CL[facility] [id number] [place] [address] [place] Comprehensive metabolic 2000 panelon 04-13-2024 Albumin [Mass/Vol] 3.1 g/dL Low 3.9-4.9 [facility] Comment on above: Order Comment: Speci men Type: BLOOD SPECIMENOrdering Facility: [facility] Address: [address] [place] [address] Performed By: #### 2 4323-8, 2532-0 ####[facility] [id number] [place] [address] [place] ALP [Catalytic activity/Vol] 118 U/L High 38-113 [facility] Comment on above: Order Comment: Speci men Type: BLOOD SPECIMENOrdering Facility: [facility] Address: [address] [place] [address] Performed By: #### 2 4323-8, 2532-0 ####[facility]CL[facility] [id number] [place] [address] [place] ALT [Catalytic activity/Vol] 22 U/L Normal 10-54 [facility] Comment on above: Order Comment: Speci men Type: BLOOD SPECIMENOrdering Facility: [facility] Address: [address] [place] [address] Performed By: #### 2 4323-8, 2532-0 ####[facility]CL[facility] [id number] [place] [address] [place] Anion gap [Moles/Vol] 9 mmol/L Normal 8-15 [facility] Comment on above: Order Comment: Speci men Type: BLOOD SPECIMENOrdering Facility: [facility] Address: [address] [place] [address] Performed By: #### 2 4323-8, 2532-0 ####[facility]CLIA [id number] [place] [id number] [place] AST [Catalytic activity/Vol] 16 U/L Normal 14-40 [facility] Comment on above: Order Comment: Speci men Type: BLOOD SPECIMENOrdering Facility: [facility] Address: [address] [place], [place] [address] Performed By: #### 2 4323-8, 2531-0 ####[facility]CLIA [id number] [address] [address] [place] Bilirubin [Mass/Vol] 0.3 mg/dL Normal 0.2-1.3 [facility] Comment on above: Order Comment: Speci men Type: BLOOD SPECIMENOrdering Facility: [facility] Address: [address] [place], [place] [address] Performed By: #### 2 4323-8, 2531-0 ####[facility]CL[facility] [id number] [place] [address] [place] Calcium [Mass/Vol] 7.8 mg/dL Low 8.5-10.2 [facility] Comment on above: Order Comment: Speci men Type: BLOOD SPECIMENOrdering Facility: [facility] Address: [address] [place], [place] [address] Performed By: #### 2 4323-8, 2531-0 ####[facility]CLIA [id number] [place] [address] [place] Chloride [Moles/Vol] 106 mmol/L Normal 98-107 [facility] Comment on above: Order Comment: Speci men Type: BLOOD SPECIMENOrdering Facility: [facility] Address: [address] [place], [place] [address] Performed By: #### 2 4323-8, 2531-0 ####[facility]CLIA [id number] [place] [id number] [place] CO2 [Moles/Vol] 23 mmol/L Normal 22-30 [facility] Comment on above: Order Comment: Speci men Type: BLOOD SPECIMENOrdering Facility: [facility] Address: [address] [place], [place] [address] Performed By: #### 2 4323-8, 253-0 ####[facility] LABIA [id number] [place] [id number] [place] Creatinine [Mass/Vol] 1.20 mg/dL Normal 0.73-1.22 [facility] Comment on above: Order Comment: Specjos randle Type: BLOOD SPECIMENOrdering Facility: [facility] Address: [address] [place] [address] Performed By: #### 2 4323-8, 253-0 ####[facility]IA [id number] [place] [address] [place] Creatinine and Glomerular filtration rate.predicted panel (S/P/Bld) 66 mL/min/1.73m??? Normal >=60 [facility] Comment on above: Order Comment: Sara randle Type: BLOOD SPECIMENOrdering Facility: [facility] Address: [address] [place] [address] Result Comment: Carol mated Glomerular Filtration Rate [...] actual GFR. Performed By: #### 2 4323-8, 2531-0 ####[facility] LABIA [id number] [place] [address] [place] Glucose [Mass/Vol] 104 mg/dL High 74-99 [facility] Comment on above: Order Comment: Sara randle Type: BLOOD SPECIMENOrdering Facility: [facility] Address: [address] [place] [address] Result Comment: The [place] [employer] (ADA) provides guidance for cutoff [...] Standards of Medical Care in Diabetes 2016, [place] [employer]. Diabetes Care. 2016.39(Suppl 1). Performed By: #### 2 43201-08, 0 ####[facility]CL[facility] [id number] [place] [address] [place] Potassium [Moles/Vol] 3.6 mmol/L Low 3.7-5.1 [facility] Comment on above: Order Comment: Speci men Type: BLOOD SPECIMENOrdering Facility: [facility] Address: [address] [place] [address] Performed By: #### 2 4323-06, ####[facility]CLIA [id number] [place] [address] [place] Protein [Mass/Vol] 5.0 g/dL Low 6.3-8.0 [facility] Comment on above: Order Comment: Sara randle Type: BLOOD SPECIMENOrdering Facility: [facility] Address: [address] [place] [address] Performed By: #### 2 43201-08, 0 ####[facility]CLIA [id number] [place] [address] [place] Sodium [Moles/Vol] 138 mmol/L Normal 136-144 [facility] Comment on above: Order Comment: Dottyi men Type: BLOOD SPECIMENOrdering Facility: [facility] Address: [address] [place] [address] Performed By: #### 2 43201-08, 0 ####[facility]CLIA [id number] [place] [id number] [place] Urea nitrogen [Mass/Vol] 8 mg/dL Low 9-24 [facility] Comment on above: Order Comment: Speci men Type: BLOOD SPECIMENOrdering Facility: [facility] Address: [address] [place] [address] Performed By: #### 2 4323-8, 2532-0 ####[facility]CLIA [id number] [place] [address] [place] Ferritin SerPl-mCncon 2023 Ferritin [Mass/Vol] 556.0 ng/mL Normal 30.3-565.7 [facility] Comment on above: Order Comment: Speci men Type: BLOOD SPECIMENOrdering Facility: [facility] Address: [address] [place] [address] Performed By: #### 2 777-1, 2275-, 1988-03, , 3083-11 ####[facility]CLIA [id number] [place] [address] [place] LDH SerPl-cCncon 04-13-2024 LDH [Catalytic activity/Vol] 167 U/L Normal 135-225 [facility] Comment on above: Order Comment: Speci men Type: BLOOD SPECIMENOrdering Facility: [facility] Address: [address] [place] [address] Performed By: #### 2 4323-8, 2532-0 ####[facility]CLIA [id number] [place] [address] [place] Magnesium SerPl-mCncon 04-13 Magnesium [Mass/Vol] 2.1 mg/dL Normal 1.7-2.3 [facility] Comment on above: Order Comment: Speci men Type: BLOOD SPECIMENOrdering Facility: [facility] Address: [address] [place] [address] Performed By: #### 2 777-1, 2275-, 1988-03, , 3083-11 ####[facility]CLIA [id number] [place] [address] [place] NUTRITIONon 04-13-2024 NUTRITION Normal [facility] Phosphate [Mass/Vol] 2.4 mg/dL Low 2.7-4.8 [facility] Comment on above: Order Comment: Speci men Type: BLOOD SPECIMENOrdering Facility: [facility] Address: [address] [place] [address] Performed By: #### 2 777-1, 2276-02, 1988-03, , 3083-11 ####[facility]CLIA [id number] [place] [address] [place] Urate [facility] Urate [Mass/Vol] 2.1 mg/dL Low 4.0-8.1 [facility] Comment on above: Order Comment: Speci men Type: BLOOD SPECIMENOrdering Facility: [facility] Address: [address] [place] [address] Performed By: #### 2 777-1, 2276-02, 1988-03, , 3083-11 ####[facility]CLIA [id number] [place] [address] [place] Bacteria Bld Culton 04-12-20 24 Bacteria identified Cx Nom (Bld) CULTURE, BLOOD: No growth 5 days Normal [facility] Comment on above: Performed By: #### 6 00-7 ####[facility]CL[facility] [id number] [place] [address] [place] Bacteria identified Cx Nom (Bld) CULTURE, BLOOD: No growth 5 days Normal [facility] Comment on above: Performed By: #### 6 00-7 ####[facility]CLIA [id number] [place] [address] [place] CBC W Auto Differential pane l (Bld)on 04-12-2024 Basophils (Bld) [#/Vol] Normal [facility] Comment on above: Order Comment: Speci men Type: BLOOD SPECIMENOrdering Facility: [facility] Address: [address] [place] [address] Result Comment: Too Few Cells To Do Differential. Performed By: #### 5 7021-8 ####[facility]CLIA [id number] [place] [address] [place] Basophils/100 WBC (Bld) Normal [facility] Comment on above: Order Comment: Speci men Type: BLOOD SPECIMENOrdering Facility: [facility] Address: [address] [place] [address] Result Comment: Too Few Cells To Do Differential. Performed By: #### 5 7021-8 ####[facility]CLIA [id number] [place] [address] [place] Differential cell count method Nom (Bld) Auto Normal [facility] Comment on above: Order Comment: Speci men Type: BLOOD SPECIMENOrdering Facility: [facility] Address: [address] [place] [address] Performed By: #### 5 7021-8 ####[facility]CLIA [id number] [place] [address] [place] Eosinophils (Bld) [#/Vol] Normal [facility] Comment on above: Order Comment: Speci men Type: BLOOD SPECIMENOrdering Facility: [facility] Address: [address] [place] [address] Result Comment: Too Few Cells To Do Differential. Performed By: #### 5 7021-8 ####[facility]CL[facility] [id number] [place] [address] [place] Eosinophils/100 WBC (Bld) Normal [facility] Comment on above: Order Comment: Speci men Type: BLOOD SPECIMENOrdering Facility: [facility] Address: [address] [place] [address] Result Comment: Too Few Cells To Do Differential. Performed By: #### 5 7021-8 ####[facility]CLIA [id number] [place] [address] [place] Erythrocyte distribution width (RBC) [Ratio] 13.9 % Normal 11.5-15.0 [facility] Comment on above: Order Comment: Speci men Type: BLOOD SPECIMENOrdering Facility: [facility] Address: [address] [place] [address] Performed By: #### 5 7021-8 ####[facility] LABIA [id number] [place] [address] [place] Hematocrit (Bld) [Volume fraction] 30.4 % Low 39.0-51.0 [facility] Comment on above: Order Comment: Speci men Type: BLOOD SPECIMENOrdering Facility: [facility] Address: [address] [place] [address] Performed By: #### 5 7021-8 ####[facility]IA [id number] [place] [address] [place] Hemoglobin (Bld) [Mass/Vol] 10.6 g/dL Low 13.0-17.0 [facility] Comment on above: Order Comment: Speci men Type: BLOOD SPECIMENOrdering Facility: [facility] Address: [address] [place] [address] Performed By: #### 5 7021-8 ####[facility]CL[facility] [id number] [place] [address] [place] Immature granulocytes (Bld) [#/Vol] Normal [facility] Comment on above: Order Comment: Speci men Type: BLOOD SPECIMENOrdering Facility: [facility] Address: [address] [place] [address] Result Comment: Too Few Cells To Do Differential. Performed By: #### 5 7021-8 ####[facility]CLIA [id number] [place] [address] [place] Immature granulocytes/100 WBC (Bld) Normal [facility] Comment on above: Order Comment: Speci men Type: BLOOD SPECIMENOrdering Facility: [facility] Address: [address] [place] [address] Result Comment: Too Few Cells To Do Differential. Performed By: #### 5 7021-8 ####[facility]CLIA [id number] [place] [address] [place] Lymphocytes (Bld) [#/Vol] Normal [facility] Comment on above: Order Comment: Speci men Type: BLOOD SPECIMENOrdering Facility: [facility] Address: [address] [place] [address] Result Comment: Too Few Cells To Do Differential. Performed By: #### 5 7021-8 ####[facility]CL[facility] [id number] [place] [address] [place] Lymphocytes/100 WBC (Bld) Normal [facility] Comment on above: Order Comment: Speci men Type: BLOOD SPECIMENOrdering Facility: [facility] Address: [address] [place] [address] Result Comment: Too Few Cells To Do Differential. Performed By: #### 5 7021-8 ####[facility]CL[facility] [id number] [place] [address] [place] MCH (RBC) [Entitic mass] 30.7 pg Normal 26.0-34.0 [facility] Comment on above: Order Comment: Speci men Type: BLOOD SPECIMENOrdering Facility: [facility] Address: [address] [place] [address] Performed By: #### 5 7021-8 ####[facility]CL[facility] [id number] [place] [address] [place] MCHC (RBC) [Mass/Vol] 34.9 g/dL Normal 30.5-36.0 [facility] Comment on above: Order Comment: Speci men Type: BLOOD SPECIMENOrdering Facility: [facility] Address: [address] [place] [address] Performed By: #### 5 7021-8 ####[facility]CLIA [id number] [place] [id number] [place] MCV (RBC) [Entitic vol] 88.1 fL Normal 80.0-100.0 [facility] Comment on above: Order Comment: Speci men Type: BLOOD SPECIMENOrdering Facility: [facility] Address: [address] [place] [address] Performed By: #### 5 7021-8 ####[facility] LABIA [id number] [place] [address] [place] Monocytes (Bld) [#/Vol] Normal [facility] Comment on above: Order Comment: Speci men Type: BLOOD SPECIMENOrdering Facility: [facility] Address: [address] [place] [address] Result Comment: Too Few Cells To Do Differential. Performed By: #### 5 7021-8 ####[facility]IA [id number] [place] [address] [place] Monocytes/100 WBC (Bld) Normal [facility] Comment on above: Order Comment: Speci men Type: BLOOD SPECIMENOrdering Facility: [facility] Address: [address] [place] [address] Result Comment: Too Few Cells To Do Differential. Performed By: #### 5 7021-8 ####[facility] LABIA [id number] [place] [address] [place] Neutrophils (Bld) [#/Vol] Normal [facility] Comment on above: Order Comment: Speci men Type: BLOOD SPECIMENOrdering Facility: [facility] Address: [address] [place] [address] Result Comment: Too Few Cells To Do Differential. Performed By: #### 5 7021-8 ####[facility]CL[facility] [id number] [place] [address] [place] Neutrophils/100 WBC (Bld) Normal [facility] Comment on above: Order Comment: Speci men Type: BLOOD SPECIMENOrdering Facility: [facility] Address: [address] [place] [address] Result Comment: Too Few Cells To Do Differential. Performed By: #### 5 7021-8 ####[facility]CL[facility] [id number] [place] [address] [place] Nucleated RBC (Bld) [#/Vol] 10*3/uL Normal <0.01 [facility] Comment on above: Order Comment: Speci men Type: BLOOD SPECIMENOrdering Facility: [facility] Address: [address] [place] [address] Performed By: #### 5 7021-8 ####[facility] LABIA [id number] [place] [address] [place] Nucleated RBC/100 WBC (Bld) [Ratio] 0.0 /100 WBC Normal [facility] Comment on above: Order Comment: Speci men Type: BLOOD SPECIMENOrdering Facility: [facility] Address: [address] [place] [address] Performed By: #### 5 7021-8 ####[facility]IA [id number] [place] [address] [place] Platelet mean volume (Bld) [Entitic vol] 11.0 fL Normal 9.0-12.7 [facility] Comment on above: Order Comment: Speci men Type: BLOOD SPECIMENOrdering Facility: [facility] Address: [address] [place] [address] Performed By: #### 5 7021-8 ####[facility]IA [id number] [place] [address] [place] Platelets (Bld) [#/Vol] 37 10*3/uL Low 150-400 [facility] Comment on above: Order Comment: Speci men Type: BLOOD SPECIMENOrdering Facility: [facility] Address: [address] [place] [address] Performed By: #### 5 7021-8 ####[facility]CL[facility] [id number] [place] [address] [place] RBC (Bld) [#/Vol] 3.45 10*6/uL Low 4.20-6.00 [place] Comment on above: Order Comment: Speci men Type: BLOOD SPECIMENOrdering Facility: [facility] Address: [address] [place] [address] Performed By: #### 5 7021-8 ####[facility]CL[facility] [id number] [place] [address] [place] WBC (Bld) [#/Vol] 0.20 10*3/uL Low 3.70-11.00 [place] Comment on above: Order Comment: Speci men Type: BLOOD SPECIMENOrdering Facility: [facility] Address: [address] [place] [address] Result Comment: Resu lts checked and verified.No clot detected. Performed By: #### 5 7021-8 ####[facility] LABIA [id number] [place] [address] [place] CRP SerPl-mCncon 04-12-2024 CRP [Mass/Vol] 2.7 mg/dL High <0.9 [facility] Comment on above: Order Comment: Speci men Type: BLOOD SPECIMENOrdering Facility: [facility] Address: [address] [place] [address] Performed By: #### 1 988-5, 51394-9, 2777-1, 3084-1, 2276-4 ####[facility] [id number] [place] [address] [place] Comprehensive metabolic 2000 panelon 04-12-2024 Albumin [Mass/Vol] 3.1 g/dL Low 3.9-4.9 [facility] Comment on above: Order Comment: Speci men Type: BLOOD SPECIMENOrdering Facility: [facility] Address: [address] [place] [address] Performed By: #### 2 4323-8, 2532-0 ####[facility] [id number] [place] [address] [place] ALP [Catalytic activity/Vol] 109 U/L Normal 38-113 [facility] Comment on above: Order Comment: Speci men Type: BLOOD SPECIMENOrdering Facility: [facility] Address: [address] [place] [address] Performed By: #### 2 4323-8, 2531-0 ####[facility] [id number] [place] [address] [place] ALT [Catalytic activity/Vol] 20 U/L Normal 10-54 [facility] Comment on above: Order Comment: Speci men Type: BLOOD SPECIMENOrdering Facility: [facility] Address: [address] [place] [address] Performed By: #### 2 4323-8, 2531-0 ####[facility] [id number] [place] [address] [place] Anion gap [Moles/Vol] 10 mmol/L Normal 8-15 [facility] Comment on above: Order Comment: Speci men Type: BLOOD SPECIMENOrdering Facility: [facility] Address: [address] [place] [address] Performed By: #### 2 4323-8, 2531-0 ####[facility] [id number] [place] [id number] [place] AST [Catalytic activity/Vol] 13 U/L Low 14-40 [facility] Comment on above: Order Comment: Speci men Type: BLOOD SPECIMENOrdering Facility: [facility] Address: [address] [place], [place] [address] Performed By: #### 2 4323-8, 2531-0 ####[facility] [id number] [place] [address] [place] Bilirubin [Mass/Vol] 0.3 mg/dL Normal 0.2-1.3 [facility] Comment on above: Order Comment: Speci men Type: BLOOD SPECIMENOrdering Facility: [facility] Address: [address] [place] [address] Performed By: #### 2 4328, 2531-0 ####[facility] [id number] [place] [address] [place] Calcium [Mass/Vol] 7.6 mg/dL Low 8.5-10.2 [facility] Comment on above: Order Comment: Speci men Type: BLOOD SPECIMENOrdering Facility: [facility] Address: [address] [place] [address] Performed By: #### 2 4328, 2531-0 ####[facility] [id number] [place] [address] [place] Chloride [Moles/Vol] 106 mmol/L Normal 98-107 [facility] Comment on above: Order Comment: Speci men Type: BLOOD SPECIMENOrdering Facility: [facility] Address: [address] [place] [address] Performed By: #### 2 432-8, 2531-0 ####[facility] [id number] [place] [address] [place] CO2 [Moles/Vol] 21 mmol/L Low 22-30 [facility] Comment on above: Order Comment: Speci men Type: BLOOD SPECIMENOrdering Facility: [facility] Address: [address] [place], [place] [address] Performed By: #### 2 4328, 2532-0 ####[facility] [id number] [address] [address] [place] Creatinine [Mass/Vol] 1.12 mg/dL Normal 0.73-1.22 [facility] Comment on above: Order Comment: Sara randle Type: BLOOD SPECIMENOrdering Facility: [facility] Address: [address] [place] [address] Performed By: #### 2 4323-8, 0 ####[facility]IA [id number] [place] [address] [place] Creatinine and Glomerular filtration rate.predicted panel (S/P/Bld) 72 mL/min/1.73m??? Normal >=60 [facility] Comment on above: Order Comment: [facility] Type: BLOOD SPECIMENOrdering Facility: [facility] Address: [address] [place] [address] Result Comment: Carol mated Glomerular Filtration Rate [...] actual GFR. Performed By: #### 2 4323-8, 0 ####[facility]IA [id number] [place] [id number] [place] Glucose [Mass/Vol] 115 mg/dL High 74-99 [facility] Comment on above: Order Comment: Dottyi men Type: BLOOD SPECIMENOrdering Facility: [facility] Address: [address] [place] [address] Result Comment: The [place] [employer] (ADA) provides guidance for cutoff [...] Standards of Medical Care in Diabetes 2016, [place] [employer]. Diabetes Care. 2016.39(Suppl 1). Performed By: #### 2 4328, 2531-0 ####[facility] [id number] [place] [address] [place] Potassium [Moles/Vol] 3.3 mmol/L Low 3.7-5.1 [facility] Comment on above: Order Comment: Speci men Type: BLOOD SPECIMENOrdering Facility: [facility] Address: [address] [place] [address] Performed By: #### 2 43201-08, 0 ####[facility] [id number] [place] [address] [place] Protein [Mass/Vol] 4.9 g/dL Low 6.3-8.0 [facility] Comment on above: Order Comment: Speci men Type: BLOOD SPECIMENOrdering Facility: [facility] Address: [address] [place] [address] Performed By: #### 2 4328, 0 ####[facility] [id number] [place] [address] [place] Sodium [Moles/Vol] 137 mmol/L Normal 136-144 [facility] Comment on above: Order Comment: Speci men Type: BLOOD SPECIMENOrdering Facility: [facility] Address: [address] [place] [address] Performed By: #### 2 4328, 0 ####[facility] [id number] [place] [id number] [place] Urea nitrogen [Mass/Vol] 6 mg/dL Low 9-24 [facility] Comment on above: Order Comment: Speci men Type: BLOOD SPECIMENOrdering Facility: [facility] Address: [address] [place] [address] Performed By: #### 2 4323-8, 2532-0 ####[facility] [id number] [place] [address] [place] Ferritin SerPl-mCncon 2023 Ferritin [Mass/Vol] 950.0 ng/mL High 30.3-565.7 [facility] Comment on above: Order Comment: Speci men Type: BLOOD SPECIMENOrdering Facility: [facility] Address: [address] [place] [address] Performed By: #### 1 988-5, 67889-7, 2777-1, 3084-1, 2276-4 ####[facility] [id number] [place] [address] [place] LDH SerPl-cCncon 04-12-2024 LDH [Catalytic activity/Vol] 165 U/L Normal 135-225 [facility] Comment on above: Order Comment: Speci men Type: BLOOD SPECIMENOrdering Facility: [facility] Address: [address] [place] [address] Performed By: #### 2 4323-8, 2532-0 ####[facility] [id number] [place] [address] [place] Magnesium SerPl-mCncon 04-12 Magnesium [Mass/Vol] 1.9 mg/dL Normal 1.7-2.3 [facility] Comment on above: Order Comment: Speci men Type: BLOOD SPECIMENOrdering Facility: [facility] Address: [address] [place] [address] Performed By: #### 1 988-5, 00086-2, 2777-1, 3084-1, 2276-4 ####[facility] [id number] [place] [address] [place] NURSING PROGon 04-12-2024 NURSING PROG Normal [facility] Phosphate [facility] Phosphate [Mass/Vol] 2.2 mg/dL Low 2.7-4.8 [facility] Comment on above: Order Comment: Speci men Type: BLOOD SPECIMENOrdering Facility: [facility] Address: [address] [place] [address] Performed By: #### 1 988-5, 45508-9, 2776-1, 3084-1, 6-4 ####[facility] [id number] [place] [address] [place] Urate [facility] Urate [Mass/Vol] 1.7 mg/dL Low 4.0-8.1 [facility] Comment on above: Order Comment: Speci men Type: BLOOD SPECIMENOrdering Facility: [facility] Address: [address] [place] [address] Performed By: #### 1 988-5, 62408-9, 2776-1, 3084-1, 6-4 ####[facility] [id number] [place] [address] [place] Bacteria Bld Culton 04-11-20 24 Bacteria identified Cx Nom (Bld) CULTURE, BLOOD: No growth 5 days Normal [facility] Comment on above: Performed By: #### 6 00-7 ####[facility] [id number] [place] [address] [place] Bacteria identified Cx Nom (Bld) CULTURE, BLOOD: No growth 5 days Normal [facility] Comment on above: Performed By: #### 6 00-7 ####[facility] [id number] [place] [address] [place] C diff Tox gens Stl Ql HARVEY+p robeon 04-11-2024 C. difficile toxin genes HARVEY+probe Ql (Stl) Negative Normal Negative for C. difficile toxin by PCR [facility] Comment on above: Order Comment: Speci men Type: STOOL SPECIMENOrdering Facility: [facility] Address: [address] [place] [address] Performed By: #### 5 4067-4 ####[facility] [id number] [place] [address] [place] CBC W Auto Differential pane l (Bld)on 04-11-2024 Basophils (Bld) [#/Vol] Normal [facility] Comment on above: Order Comment: Speci men Type: BLOOD SPECIMENOrdering Facility: [facility] Address: [address] [place] [address] Result Comment: Too Few Cells To Do Differential. Performed By: #### 5 7021-8 ####[facility] [id number] [place] [address] [place] Basophils/100 WBC (Bld) Normal [facility] Comment on above: Order Comment: Speci men Type: BLOOD SPECIMENOrdering Facility: [facility] Address: [address] [place] [address] Result Comment: Too Few Cells To Do Differential. Performed By: #### 5 7021-8 ####[facility] [id number] [place] [address] [place] Differential cell count method Nom (Bld) Auto Normal [facility] Comment on above: Order Comment: Speci men Type: BLOOD SPECIMENOrdering Facility: [facility] Address: [address] [place] [address] Performed By: #### 5 7021-8 ####[facility] [id number] [place] [address] [place] Eosinophils (Bld) [#/Vol] Normal [facility] Comment on above: Order Comment: Speci men Type: BLOOD SPECIMENOrdering Facility: [facility] Address: [address] [place] [address] Result Comment: Too Few Cells To Do Differential. Performed By: #### 5 7021-8 ####[facility]IA [id number] [place] [address] [place] Eosinophils/100 WBC (Bld) Normal [facility] Comment on above: Order Comment: Speci men Type: BLOOD SPECIMENOrdering Facility: [facility] Address: [address] [place] [address] Result Comment: Too Few Cells To Do Differential. Performed By: #### 5 7021-8 ####[facility] LABIA [id number] [place] [address] [place] Erythrocyte distribution width (RBC) [Ratio] 13.6 % Normal 11.5-15.0 [facility] Comment on above: Order Comment: Speci men Type: BLOOD SPECIMENOrdering Facility: [facility] Address: [address] [place] [address] Performed By: #### 5 7021-8 ####[facility]IA [id number] [place] [address] [place] Hematocrit (Bld) [Volume fraction] 32.2 % Low 39.0-51.0 [facility] Comment on above: Order Comment: Speci men Type: BLOOD SPECIMENOrdering Facility: [facility] Address: [address] [place] [address] Performed By: #### 5 7021-8 ####[facility]IA [id number] [place] [address] [place] Hemoglobin (Bld) [Mass/Vol] 11.1 g/dL Low 13.0-17.0 [facility] Comment on above: Order Comment: Speci men Type: BLOOD SPECIMENOrdering Facility: [facility] Address: [address] [place] [address] Performed By: #### 5 7021-8 ####[facility] [id number] [place] [address] [place] Immature granulocytes (Bld) [#/Vol] Normal [facility] Comment on above: Order Comment: Speci men Type: BLOOD SPECIMENOrdering Facility: [facility] Address: [address] [place] [address] Result Comment: Too Few Cells To Do Differential. Performed By: #### 5 7021-8 ####[facility] [id number] [place] [address] [place] Immature granulocytes/100 WBC (Bld) Normal [facility] Comment on above: Order Comment: Speci men Type: BLOOD SPECIMENOrdering Facility: [facility] Address: [address] [place] [address] Result Comment: Too Few Cells To Do Differential. Performed By: #### 5 7021-8 ####[facility] [id number] [place] [address] [place] Lymphocytes (Bld) [#/Vol] Normal [facility] Comment on above: Order Comment: Speci men Type: BLOOD SPECIMENOrdering Facility: [facility] Address: [address] [place] [address] Result Comment: Too Few Cells To Do Differential. Performed By: #### 5 7021-8 ####[facility] [id number] [place] [address] [place] Lymphocytes/100 WBC (Bld) Normal [facility] Comment on above: Order Comment: Speci men Type: BLOOD SPECIMENOrdering Facility: [facility] Address: [address] [place] [address] Result Comment: Too Few Cells To Do Differential. Performed By: #### 5 7021-8 ####[facility] [id number] [place] [address] [place] MCH (RBC) [Entitic mass] 30.9 pg Normal 26.0-34.0 [facility] Comment on above: Order Comment: Speci men Type: BLOOD SPECIMENOrdering Facility: [facility] Address: [address] [place] [address] Performed By: #### 5 7021-8 ####[facility] [id number] [place] [address] [place] MCHC (RBC) [Mass/Vol] 34.5 g/dL Normal 30.5-36.0 [facility] Comment on above: Order Comment: Speci men Type: BLOOD SPECIMENOrdering Facility: [facility] Address: [address] [place] [address] Performed By: #### 5 7021-8 ####[facility]IA [id number] [place] [address] [place] MCV (RBC) [Entitic vol] 89.7 fL Normal 80.0-100.0 [facility] Comment on above: Order Comment: Speci men Type: BLOOD SPECIMENOrdering Facility: [facility] Address: [address] [place] [address] Performed By: #### 5 7021-8 ####[facility]IA [id number] [place] [address] [place] Monocytes (Bld) [#/Vol] Normal [facility] Comment on above: Order Comment: Speci men Type: BLOOD SPECIMENOrdering Facility: [facility] Address: [address] [place] [address] Result Comment: Too Few Cells To Do Differential. Performed By: #### 5 7021-8 ####[facility]IA [id number] [place] [address] [place] Monocytes/100 WBC (Bld) Normal [facility] Comment on above: Order Comment: Speci men Type: BLOOD SPECIMENOrdering Facility: [facility] Address: [address] [place] [address] Result Comment: Too Few Cells To Do Differential. Performed By: #### 5 7021-8 ####[facility] [id number] [place] [address] [place] Neutrophils (Bld) [#/Vol] Normal [facility] Comment on above: Order Comment: Speci men Type: BLOOD SPECIMENOrdering Facility: [facility] Address: [address] [place] [address] Result Comment: Too Few Cells To Do Differential. Performed By: #### 5 7021-8 ####[facility] [id number] [place] [address] [place] Neutrophils/100 WBC (Bld) Normal [facility] Comment on above: Order Comment: Speci men Type: BLOOD SPECIMENOrdering Facility: [facility] Address: [address] [place] [address] Result Comment: Too Few Cells To Do Differential. Performed By: #### 5 7021-8 ####[facility] [id number] [place] [address] [place] Nucleated RBC (Bld) [#/Vol] 10*3/uL Normal <0.01 [facility] Comment on above: Order Comment: Speci men Type: BLOOD SPECIMENOrdering Facility: [facility] Address: [address] [place] [address] Performed By: #### 5 7021-8 ####[facility] [id number] [place] [address] [place] Nucleated RBC/100 WBC (Bld) [Ratio] 0.0 /100 WBC Normal [facility] Comment on above: Order Comment: Speci men Type: BLOOD SPECIMENOrdering Facility: [facility] Address: [address] [place] [address] Performed By: #### 5 7021-8 ####[facility]CL[facility] [id number] [address] [id number] [address] [place] Platelet mean volume (Bld) [Entitic vol] 9.8 fL Normal 9.0-12.7 [facility] Comment on above: Order Comment: Speci men Type: BLOOD SPECIMENOrdering Facility: [facility] Address: [address] [place] [address] Performed By: #### 5 7021-8 ####[facility] [id number] [place] [address] [place] Platelets (Bld) [#/Vol] 46 10*3/uL Low 150-400 [facility] Comment on above: Order Comment: Speci men Type: BLOOD SPECIMENOrdering Facility: [facility] Address: [address] [place] [address] Result Comment: No c lot detected. Performed By: #### 5 7021-8 ####[facility] [id number] [place] [address] [place] RBC (Bld) [#/Vol] 3.59 10*6/uL Low 4.20-6.00 [place] Comment on above: Order Comment: Speci men Type: BLOOD SPECIMENOrdering Facility: [facility] Address: [address] [place] [address] Performed By: #### 5 7021-8 ####[facility]IA [id number] [place] [address] [place] WBC (Bld) [#/Vol] 0.10 10*3/uL Low 3.70-11.00 [place] Comment on above: Order Comment: Speci men Type: BLOOD SPECIMENOrdering Facility: [facility] Address: [address] [place] [address] Result Comment: No c lot detected. Too Few Cells To Do Differential Performed By: #### 5 7021-8 ####[facility] [id number] [place] [address] [place] CRP SerPl-mCncon 04-11-2024 CRP [Mass/Vol] 4.3 mg/dL High <0.9 [facility] Comment on above: Order Comment: Speci men Type: BLOOD SPECIMENOrdering Facility: [facility] Address: [address] [place] [address] Performed By: #### 1 9123-9, 2777-1, 3084-1, 2276-4, 1988- ####[facility]CL[facility] [id number] [place] [address] [place] [facility] Comprehensive metabolic 2000 panelon 04-11-2024 Albumin [Mass/Vol] 3.1 g/dL Low 3.9-4.9 [facility] Comment on above: Order Comment: Speci men Type: BLOOD SPECIMENOrdering Facility: [facility] Address: [address] [place] [address] Performed By: #### 2 4323-8, 2532-0 ####[facility]CL[facility] [id number] [place] [address] [place] ALP [Catalytic activity/Vol] 119 U/L High 38-113 [facility] Comment on above: Order Comment: Speci men Type: BLOOD SPECIMENOrdering Facility: [facility] Address: [address] [place] [address] Performed By: #### 2 4323-8, 2532-0 ####[facility]CL[facility] [id number] [place] [address] [place] ALT [Catalytic activity/Vol] 19 U/L Normal 10-54 [facility] Comment on above: Order Comment: Speci men Type: BLOOD SPECIMENOrdering Facility: [facility] Address: [address] [place] [address] Performed By: #### 2 4323-8, 2532-0 ####[facility]CLIA [id number] [place] [id number] [place] Anion gap [Moles/Vol] 9 mmol/L Normal 8-15 [facility] Comment on above: Order Comment: Speci men Type: BLOOD SPECIMENOrdering Facility: [facility] Address: [address] [place] [address] Performed By: #### 2 4323-8, 2531-0 ####[facility]CL[facility] [id number] [place] [id number] [place] AST [Catalytic activity/Vol] 16 U/L Normal 14-40 [facility] Comment on above: Order Comment: Speci men Type: BLOOD SPECIMENOrdering Facility: [facility] Address: [address] [place] [address] Performed By: #### 2 4323-8, 0 ####[facility]CL[facility] [id number] [place] [address] [place] Bilirubin [Mass/Vol] 0.3 mg/dL Normal 0.2-1.3 [facility] Comment on above: Order Comment: Speci men Type: BLOOD SPECIMENOrdering Facility: [facility] Address: [address] [place] [address] Performed By: #### 2 4323-8, 0 ####[facility] [id number] [place] [address] [place] Calcium [Mass/Vol] 7.6 mg/dL Low 8.5-10.2 [facility] Comment on above: Order Comment: Speci men Type: BLOOD SPECIMENOrdering Facility: [facility] Address: [address] [place] [address] Performed By: #### 2 4323-8, 2531-0 ####[facility]IA [id number] [place] [address] [place] Chloride [Moles/Vol] 107 mmol/L Normal 98-107 [facility] Comment on above: Order Comment: Speci men Type: BLOOD SPECIMENOrdering Facility: [facility] Address: [address] [place], [place] [address] Performed By: #### 2 4323-8, 2532-0 ####[facility]CL[facility] [id number] [place] [address] [place] CO2 [Moles/Vol] 21 mmol/L Low 22-30 [facility] Comment on above: Order Comment: Speci men Type: BLOOD SPECIMENOrdering Facility: [facility] Address: [address] [place] [address] Performed By: #### 2 4323-8, 253-0 ####[facility]IA [id number] [place] [address] [place] Creatinine [Mass/Vol] 1.13 mg/dL Normal 0.73-1.22 [facility] Comment on above: Order Comment: Speci men Type: BLOOD SPECIMENOrdering Facility: [facility] Address: [address] [place] [address] Performed By: #### 2 4323-8, 2531-0 ####[facility]IA [id number] [place] [address] [place] Creatinine and Glomerular filtration rate.predicted panel (S/P/Bld) 71 mL/min/1.73m??? Normal >=60 [facility] Comment on above: Order Comment: Speci men Type: BLOOD SPECIMENOrdering Facility: [facility] Address: [address] [place] [address] Result Comment: Carol mated Glomerular Filtration Rate [...] actual GFR. Performed By: #### 2 4323-8, 2532-0 ####[facility]IA [id number] [place] [address] [place] Glucose [Mass/Vol] 115 mg/dL High 74-99 [facility] Comment on above: Order Comment: Speci men Type: BLOOD SPECIMENOrdering Facility: [facility] Address: [address] [place] [address] Result Comment: The [place] [employer] (ADA) provides guidance for cutoff [...] Standards of Medical Care in Diabetes 2016, [place] [employer]. Diabetes Care. 2016.39(Suppl 1). Performed By: #### 2 4323-8, 0 ####[facility]CL[facility] [id number] [place] [address] [place] Potassium [Moles/Vol] 3.5 mmol/L Low 3.7-5.1 [facility] Comment on above: Order Comment: Speci men Type: BLOOD SPECIMENOrdering Facility: [facility] Address: [address] [place] [address] Performed By: #### 2 4323-8, 0 ####[facility]CL[facility] [id number] [place] [address] [place] Protein [Mass/Vol] 5.1 g/dL Low 6.3-8.0 [facility] Comment on above: Order Comment: Speci men Type: BLOOD SPECIMENOrdering Facility: [facility] Address: [address] [place] [address] Performed By: #### 2 4323-8, 0 ####[facility]CL[facility] [id number] [place] [address] [place] Sodium [Moles/Vol] 137 mmol/L Normal 136-144 [facility] Comment on above: Order Comment: Speci men Type: BLOOD SPECIMENOrdering Facility: [facility] Address: [address] [place] [address] Performed By: #### 2 4323-8, 2532-0 ####[facility] [id number] [place] [address] [place] Urea nitrogen [Mass/Vol] 9 mg/dL Normal 9-24 [facility] Comment on above: Order Comment: Speci men Type: BLOOD SPECIMENOrdering Facility: [facility] Address: [address] [place] [address] Performed By: #### 2 4323-8, 2532-0 ####[facility] [id number] [place] [address] [place] Ferritin SerPl-mCncon 2023 Ferritin [Mass/Vol] 920.0 ng/mL High 30.3-565.7 [facility] Comment on above: Order Comment: Speci men Type: BLOOD SPECIMENOrdering Facility: [facility] Address: [address] [place] [address] Performed By: #### 1 9123-9, 2777-1, 3084-1, 2276-4, 1988- ####[facility]IA [id number] [place] [address] [place] Gas and Carbon monoxide pane l (BldV)on 04-11-2024 Base excess Calc (BldV) [Moles/Vol] 0 mmol/L Normal 0-2 [facility] Comment on above: Order Comment: Speci men Type: VENOUS BLOOD SPECIMENOrdering Facility: [facility] Address: [address] [place] [address] Performed By: #### 2 4344-4 ####[facility]IA [id number] [place] [address] [place] Body temperature 100.22 [degF] Normal [place] Comment on above: Order Comment: Speci men Type: VENOUS BLOOD SPECIMENOrdering Facility: [facility] Address: [address] [place] [address] Performed By: #### 2 4344-4 ####[facility] [id number] [place] [address] [place] Calcium.ionized (Bld) [Mass/Vol] 1.12 mmol/L Normal 1.08-1.30 [facility] Comment on above: Order Comment: Speci men Type: VENOUS BLOOD SPECIMENOrdering Facility: [facility] Address: [address] [place] [address] Performed By: #### 2 4344-4 ####[facility] [id number] [place] [address] [place] Calcium.ionized adjusted to pH 7.4 (BldA) [Moles/Vol] 1.12 mmol/L Normal 1.08-1.30 [facility] Comment on above: Order Comment: Speci men Type: VENOUS BLOOD SPECIMENOrdering Facility: [facility] Address: [address] [place] [address] Performed By: #### 2 4344-4 ####[facility] [id number] [place] [address] [place] Carboxyhemoglobin (BldV) [Mass fraction] 1.6 % Normal 0.0-2.0 [facility] Comment on above: Order Comment: Speci men Type: VENOUS BLOOD SPECIMENOrdering Facility: [facility] Address: [address] [place] [address] Result Comment: Carb oxyhemoglobin Reference Range for Smokers: 2.0-8.0% Performed By: #### 2 4344-4 ####[facility] [id number] [place] [address] [place] CO2 (BldV) [Partial pressure] 39 mm[Hg] Low 42-55 [facility] Comment on above: Order Comment: Speci men Type: VENOUS BLOOD SPECIMENOrdering Facility: [facility] Address: [address] [place] [address] Performed By: #### 2 4344-4 ####[facility] [id number] [place] [address] [place] CO2 adjusted to patient's actual temperature (BldV) [Partial pressure] 41 mmHg Low 42-55 [facility] Comment on above: Order Comment: Speci men Type: VENOUS BLOOD SPECIMENOrdering Facility: [facility] Address: [address] [place] [address] Performed By: #### 2 4344-4 ####[facility] [id number] [place] [address] [place] Glucose [Mass/Vol] 129 mg/dL High 60-105 [facility] Comment on above: Order Comment: Speci men Type: VENOUS BLOOD SPECIMENOrdering Facility: [facility] Address: [address] [place] [address] Performed By: #### 2 4344-4 ####[facility] [id number] [place] [address] [place] HCO3 (Bld) [Moles/Vol] 24 mmol/L Normal 24-28 [facility] Comment on above: Order Comment: Speci men Type: VENOUS BLOOD SPECIMENOrdering Facility: [facility] Address: [address] [place] [address] Performed By: #### 2 4344-4 ####[facility] [id number] [place] [address] [place] Hematocrit (Bld) [Volume fraction] 32.5 % Low 39.0-51.0 [facility] Comment on above: Order Comment: Speci men Type: VENOUS BLOOD SPECIMENOrdering Facility: [facility] Address: [address] [place] [address] Performed By: #### 2 4344-4 ####[facility] [id number] [place] [address] [place] Hemoglobin (Bld) [Mass/Vol] 10.5 g/dL Low 13.0-17.0 [facility] Comment on above: Order Comment: Speci men Type: VENOUS BLOOD SPECIMENOrdering Facility: [facility] Address: [address] [place] [address] Performed By: #### 2 4344-4 ####[facility]IA [id number] [place] [address] [place] Lactate [Moles/Vol] 1.5 mmol/L Normal 0.5-2.2 [place] Comment on above: Order Comment: Speci men Type: VENOUS BLOOD SPECIMENOrdering Facility: [facility] Address: [address] [place] [address] Performed By: #### 2 4344-4 ####[facility]IA [id number] [place] [address] [place] Methemoglobin (Bld) [Mass fraction] 0.4 % Normal 0.0-1.5 [facility] Comment on above: Order Comment: Speci men Type: VENOUS BLOOD SPECIMENOrdering Facility: [facility] Address: [address] [place] [address] Performed By: #### 2 4344-4 ####[facility]IA [id number] [place] [address] [place] O2 THERAPY RA=Room Air Normal [facility] Comment on above: Order Comment: Speci men Type: VENOUS BLOOD SPECIMENOrdering Facility: [facility] Address: [address] [place] [address] Performed By: #### 2 4344-4 ####[facility]IA [id number] [place] [address] [place] Oxygen (BldV) [Partial pressure] 37 mm[Hg] Normal 35-45 [facility] Comment on above: Order Comment: Speci men Type: VENOUS BLOOD SPECIMENOrdering Facility: [facility] Address: [address] [place] [address] Performed By: #### 2 4344-4 ####[facility] [id number] [place] [address] [place] Oxygen adjusted to patient's actual temperature (BldV) [Partial pressure] 39 mmHg Normal 35-45 [facility] Comment on above: Order Comment: Speci men Type: VENOUS BLOOD SPECIMENOrdering Facility: [facility] Address: [address] [place] [address] Performed By: #### 2 4344-4 ####[facility] [id number] [place] [address] [place] Oxygen saturation in Venous blood 67 % Normal 60-85 [facility] Comment on above: Order Comment: Speci men Type: VENOUS BLOOD SPECIMENOrdering Facility: [facility] Address: [address] [place] [address] Performed By: #### 2 4344-4 ####[facility] [id number] [place] [address] [place] Oxyhemoglobin (BldV) [Mass fraction] 66 % Normal 60-85 [facility] Comment on above: Order Comment: Speci men Type: VENOUS BLOOD SPECIMENOrdering Facility: [facility] Address: [address] [place] [address] Performed By: #### 2 4344-4 ####[facility] [id number] [place] [address] [place] pH (BldV) 7.40 [pH] Normal 7.32-7.42 [facility] Comment on above: Order Comment: Speci men Type: VENOUS BLOOD SPECIMENOrdering Facility: [facility] Address: [address] [place] [address] Performed By: #### 2 4344-4 ####[facility] [id number] [place] [address] [place] pH adjusted to patient's actual temperature (BldV) 7.39 Normal 7.32-7.42 [facility] Comment on above: Order Comment: Speci men Type: VENOUS BLOOD SPECIMENOrdering Facility: [facility] Address: [address] [place] [address] Performed By: #### 2 4344-4 ####[facility] [id number] [place] [address] [place] Potassium [Moles/Vol] 3.2 mmol/L Low 3.5-5.0 [facility] Comment on above: Order Comment: Speci men Type: VENOUS BLOOD SPECIMENOrdering Facility: [facility] Address: [address] [place] [address] Performed By: #### 2 4344-4 ####[facility]IA [id number] [place] [address] [place] Sodium [Moles/Vol] 136 mmol/L Normal 136-144 [facility] Comment on above: Order Comment: Speci men Type: VENOUS BLOOD SPECIMENOrdering Facility: [facility] Address: [address] [place] [address] Performed By: #### 2 4344-4 ####[facility]IA [id number] [place] [id number] [place] LDH SerPl-cCncon 04-11-2024 LDH [Catalytic activity/Vol] 160 U/L Normal 135-225 [facility] Comment on above: Order Comment: Speci men Type: BLOOD SPECIMENOrdering Facility: [facility] Address: [address] [place] [address] Performed By: #### 2 4323-8, 2532-0 ####[facility] [id number] [address] [address] [place] Magnesium SerPl-mCncon 04-11 Magnesium [Mass/Vol] 1.7 mg/dL Normal 1.7-2.3 [facility] Comment on above: Order Comment: Speci men Type: BLOOD SPECIMENOrdering Facility: [facility] Address: [address] [place], [place] [address] Performed By: #### 1 9123-9, 2777-1, 3083-1, 2276-02, 1988-03 ####[facility]CL[facility] [id number] [place] [id number] [place] NURSING PROGon 04-11-2024 NURSING PROG Normal [facility] Phosphate SerPl-mCncon 04-11 Phosphate [Mass/Vol] 2.3 mg/dL Low 2.7-4.8 [facility] Comment on above: Order Comment: Speci men Type: BLOOD SPECIMENOrdering Facility: [facility] Address: [address] [place] [address] Performed By: #### 1 9123-9, 277-1, 3083-1, 2276-02, 1988-03 ####[facility]CL[facility] [id number] [place] [address] [place] TYPE + SCREENon 04-11-2024 ABO B Normal [facility] Comment on above: Order Comment: Speci men Type: BLOOD SPECIMENOrdering Facility: [facility] Address: [address] [place] [address] Performed By: #### T SCR ####[facility] B[facility] BANKCLIA [id number] [place] [address] [place] HISTORICAL AB SCR STATUS Negative Normal [facility] Comment on above: Order Comment: Speci men Type: BLOOD SPECIMENOrdering Facility: [facility] Address: [address] [place], [place] [address] Performed By: #### T SCR ####[facility]ANKCLIA [id number] [place] [address] [place] Rh Nom (Bld) Negative Normal [facility] Comment on above: Order Comment: Speci men Type: BLOOD SPECIMENOrdering Facility: [facility] Address: [address] [place] [address] Performed By: #### T SCR ####[facility]ANKCLIA [id number] [place] [address] [place] TYPE AND SCREEN EXPIRATION 04/14/2024 23:59 Normal [facility] Comment on above: Order Comment: Speci men Type: BLOOD SPECIMENOrdering Facility: [facility] Address: [address] [place] [address] Performed By: #### T SCR ####[facility] BLOOD BANKCLIA [id number] [address] [place] Urate SerPl-mCncon 4 Urate [Mass/Vol] 1.5 mg/dL Low 4.0-8.1 [facility] Comment on above: Order Comment: Speci men Type: BLOOD SPECIMENOrdering Facility: [facility] Address: [address] [place] [address] Performed By: #### 1 9123-9, 2777-1, 3084-1, 2276-4, 1988- ####[facility] [id number] [place] [address] [place] Bacteria Bld Culton 04-10-20 24 Bacteria identified Cx Nom (Bld) CULTURE, BLOOD: No growth 5 days Normal [facility] Comment on above: Performed By: #### 6 00-7 ####[facility] [id number] [place] [address] [place] Bacteria identified Cx Nom (Bld) CULTURE, BLOOD: No growth 5 days Normal [facility] Comment on above: Performed By: #### 6 00-7 ####[facility] [id number] [place] [address] [place] CBC W Auto Differential pane l (Bld)on 04-10-2024 Basophils (Bld) [#/Vol] Normal [facility] Comment on above: Order Comment: Speci men Type: BLOOD SPECIMENOrdering Facility: [facility] Address: [address] [place] [address] Result Comment: Too Few Cells To Do Differential. Performed By: #### 5 7021-8 ####[facility]CL[facility] [id number] [place] [address] [place] Basophils/100 WBC (Bld) Normal [facility] Comment on above: Order Comment: Speci men Type: BLOOD SPECIMENOrdering Facility: [facility] Address: [address] [place] [address] Result Comment: Too Few Cells To Do Differential. Performed By: #### 5 7021-8 ####[facility]CLIA [id number] [place] [address] [place] Differential cell count method Nom (Bld) Auto Normal [facility] Comment on above: Order Comment: Speci men Type: BLOOD SPECIMENOrdering Facility: [facility] Address: [address] [place] [address] Performed By: #### 5 7021-8 ####[facility]CLIA [id number] [place] [address] [place] Eosinophils (Bld) [#/Vol] Normal [facility] Comment on above: Order Comment: Speci men Type: BLOOD SPECIMENOrdering Facility: [facility] Address: [address] [place] [address] Result Comment: Too Few Cells To Do Differential. Performed By: #### 5 7021-8 ####[facility]CLIA [id number] [place] [address] [place] Eosinophils/100 WBC (Bld) Normal [facility] Comment on above: Order Comment: Speci men Type: BLOOD SPECIMENOrdering Facility: [facility] Address: [address] [place] [address] Result Comment: Too Few Cells To Do Differential. Performed By: #### 5 7021-8 ####[facility] LABIA [id number] [place] [address] [place] Erythrocyte distribution width (RBC) [Ratio] 13.6 % Normal 11.5-15.0 [facility] Comment on above: Order Comment: Speci men Type: BLOOD SPECIMENOrdering Facility: [facility] Address: [address] [place] [address] Performed By: #### 5 7021-8 ####[facility] LABIA [id number] [place] [address] [place] Hematocrit (Bld) [Volume fraction] 33.7 % Low 39.0-51.0 [facility] Comment on above: Order Comment: Speci men Type: BLOOD SPECIMENOrdering Facility: [facility] Address: [address] [place] [address] Performed By: #### 5 7021-8 ####[facility]IA [id number] [place] [address] [place] Hemoglobin (Bld) [Mass/Vol] 11.8 g/dL Low 13.0-17.0 [facility] Comment on above: Order Comment: Speci men Type: BLOOD SPECIMENOrdering Facility: [facility] Address: [address] [place] [address] Performed By: #### 5 7021-8 ####[facility]IA [id number] [place] [address] [place] Immature granulocytes (Bld) [#/Vol] Normal [facility] Comment on above: Order Comment: Speci men Type: BLOOD SPECIMENOrdering Facility: [facility] Address: [address] [place] [address] Result Comment: Too Few Cells To Do Differential. Performed By: #### 5 7021-8 ####[facility] [id number] [place] [address] [place] Immature granulocytes/100 WBC (Bld) Normal [facility] Comment on above: Order Comment: Speci men Type: BLOOD SPECIMENOrdering Facility: [facility] Address: [address] [place] [address] Result Comment: Too Few Cells To Do Differential. Performed By: #### 5 7021-8 ####[facility] [id number] [place] [address] [place] Lymphocytes (Bld) [#/Vol] Normal [facility] Comment on above: Order Comment: Speci men Type: BLOOD SPECIMENOrdering Facility: [facility] Address: [address] [place] [address] Result Comment: Too Few Cells To Do Differential. Performed By: #### 5 7021-8 ####[facility] [id number] [place] [address] [place] Lymphocytes/100 WBC (Bld) Normal [facility] Comment on above: Order Comment: Speci men Type: BLOOD SPECIMENOrdering Facility: [facility] Address: [address] [place] [address] Result Comment: Too Few Cells To Do Differential. Performed By: #### 5 7021-8 ####[facility]IA [id number] [place] [address] [place] MCH (RBC) [Entitic mass] 31.1 pg Normal 26.0-34.0 [facility] Comment on above: Order Comment: Speci men Type: BLOOD SPECIMENOrdering Facility: [facility] Address: [address] [place] [address] Performed By: #### 5 7021-8 ####[facility]CL[facility] [id number] [place] [id number] [place] MCHC (RBC) [Mass/Vol] 35.0 g/dL Normal 30.5-36.0 [facility] Comment on above: Order Comment: Speci men Type: BLOOD SPECIMENOrdering Facility: [facility] Address: [address] [place] [address] Performed By: #### 5 7021-8 ####[facility] [id number] [place] [address] [place] MCV (RBC) [Entitic vol] 88.9 fL Normal 80.0-100.0 [facility] Comment on above: Order Comment: Speci men Type: BLOOD SPECIMENOrdering Facility: [facility] Address: [address] [place] [address] Performed By: #### 5 7021-8 ####[facility] [id number] [place] [address] [place] Monocytes (Bld) [#/Vol] Normal [facility] Comment on above: Order Comment: Speci men Type: BLOOD SPECIMENOrdering Facility: [facility] Address: [address] [place] [address] Result Comment: Too Few Cells To Do Differential. Performed By: #### 5 7021-8 ####[facility] [id number] [place] [address] [place] Monocytes/100 WBC (Bld) Normal [facility] Comment on above: Order Comment: Speci men Type: BLOOD SPECIMENOrdering Facility: [facility] Address: [address] [place] [address] Result Comment: Too Few Cells To Do Differential. Performed By: #### 5 7021-8 ####[facility] [id number] [place] [address] [place] Neutrophils (Bld) [#/Vol] Normal [facility] Comment on above: Order Comment: Speci men Type: BLOOD SPECIMENOrdering Facility: [facility] Address: [address] [place] [address] Result Comment: Too Few Cells To Do Differential. Performed By: #### 5 7021-8 ####[facility]CLIA [id number] [place] [address] [place] Neutrophils/100 WBC (Bld) Normal [facility] Comment on above: Order Comment: Speci men Type: BLOOD SPECIMENOrdering Facility: [facility] Address: [address] [place] [address] Result Comment: Too Few Cells To Do Differential. Performed By: #### 5 7021-8 ####[facility]CLIA [id number] [place] [address] [place] Nucleated RBC (Bld) [#/Vol] 10*3/uL Normal <0.01 [facility] Comment on above: Order Comment: Speci men Type: BLOOD SPECIMENOrdering Facility: [facility] Address: [address] [place] [address] Performed By: #### 5 7021-8 ####[facility]IA [id number] [place] [address] [place] Nucleated RBC/100 WBC (Bld) [Ratio] 0.0 /100 WBC Normal [facility] Comment on above: Order Comment: Speci men Type: BLOOD SPECIMENOrdering Facility: [facility] Address: [address] [place] [address] Performed By: #### 5 7021-8 ####[facility]CLIA [id number] [place] [address] [place] Platelet mean volume (Bld) [Entitic vol] 9.5 fL Normal 9.0-12.7 [facility] Comment on above: Order Comment: Speci men Type: BLOOD SPECIMENOrdering Facility: [facility] Address: [address] [place] [address] Performed By: #### 5 7021-8 ####[facility]CLIA [id number] [place] [address] [place] Platelets (Bld) [#/Vol] 59 10*3/uL Low 150-400 [facility] Comment on above: Order Comment: Speci men Type: BLOOD SPECIMENOrdering Facility: [facility] Address: [address] [place] [address] Result Comment: No c lot detected. Performed By: #### 5 7021-8 ####[facility] LABIA [id number] [place] [address] [place] RBC (Bld) [#/Vol] 3.79 10*6/uL Low 4.20-6.00 [place] Comment on above: Order Comment: Speci men Type: BLOOD SPECIMENOrdering Facility: [facility] Address: [address] [place] [address] Performed By: #### 5 7021-8 ####[facility] [id number] [place] [address] [place] WBC (Bld) [#/Vol] 0.21 10*3/uL Low 3.70-11.00 [place] Comment on above: Order Comment: Speci men Type: BLOOD SPECIMENOrdering Facility: [facility] Address: [address] [place] [address] Result Comment: No c lot detected. Too Few Cells To Do Differential Performed By: #### 5 7021-8 ####[facility]IA [id number] [place] [address] [place] CRP SerPl-mCncon 04-10-2024 CRP [Mass/Vol] 5.5 mg/dL High <0.9 [facility] Comment on above: Order Comment: Speci men Type: BLOOD SPECIMENOrdering Facility: [facility] Address: [address] [place] [address] Performed By: #### 1 988-5, 26477-6, 2777-1, 3084-1, 2276-4 ####[facility]CLIA [id number] [place] [id number] [place] Comprehensive metabolic 2000 panelon 04-10-2024 Albumin [Mass/Vol] 3.5 g/dL Low 3.9-4.9 [facility] Comment on above: Order Comment: Speci men Type: BLOOD SPECIMENOrdering Facility: [facility] Address: [address] [place] [address] Performed By: #### 2 4323-8, 2532-0 ####[facility]CLIA [id number] [place] [address] [place] ALP [Catalytic activity/Vol] 134 U/L High 38-113 [facility] Comment on above: Order Comment: Speci men Type: BLOOD SPECIMENOrdering Facility: [facility] Address: [address] [place] [address] Performed By: #### 2 432-8, 2531-0 ####[facility]CLIA [id number] [place] [id number] [place] ALT [Catalytic activity/Vol] 15 U/L Normal 10-54 [facility] Comment on above: Order Comment: Speci men Type: BLOOD SPECIMENOrdering Facility: [facility] Address: [address] [place] [address] Performed By: #### 2 432-8, 2531-0 ####[facility]CLIA [id number] [place] [id number] [place] Anion gap [Moles/Vol] 12 mmol/L Normal 8-15 [facility] Comment on above: Order Comment: Speci men Type: BLOOD SPECIMENOrdering Facility: [facility] Address: [address] [place] [address] Performed By: #### 2 4323-8, 2532-0 ####[facility]CLIA [id number] [place] [id number] [place] AST [Catalytic activity/Vol] 11 U/L Low 14-40 [facility] Comment on above: Order Comment: Speci men Type: BLOOD SPECIMENOrdering Facility: [facility] Address: [address] [place] [address] Performed By: #### 2 4323-8, 2532-0 ####[facility]CLIA [id number] [place] [address] [place] Bilirubin [Mass/Vol] 0.4 mg/dL Normal 0.2-1.3 [facility] Comment on above: Order Comment: Speci men Type: BLOOD SPECIMENOrdering Facility: [facility] Address: [address] [place] [address] Performed By: #### 2 4323-8, 2532-0 ####[facility] LABCLIA [id number] [place] [address] [place] Calcium [Mass/Vol] 8.4 mg/dL Low 8.5-10.2 [facility] Comment on above: Order Comment: Speci men Type: BLOOD SPECIMENOrdering Facility: [facility] Address: [address] [place] [address] Performed By: #### 2 4323-8, 2531-0 ####[facility] LABCLIA [id number] [place] [address] [place] Chloride [Moles/Vol] 106 mmol/L Normal 98-107 [facility] Comment on above: Order Comment: Speci men Type: BLOOD SPECIMENOrdering Facility: [facility] Address: [address] [place] [address] Performed By: #### 2 4323-8, 2532-0 ####[facility] LABCLIA [id number] [place] [id number] [place] CO2 [Moles/Vol] 21 mmol/L Low 22-30 [facility] Comment on above: Order Comment: Speci men Type: BLOOD SPECIMENOrdering Facility: [facility] Address: [address] [id number] Performed By: #### 2 4323-8, ####[facility] LABIA [id number] [place] [address] [place] Creatinine [Mass/Vol] 1.25 mg/dL High 0.73-1.22 [facility] Comment on above: Order Comment: Speci men Type: BLOOD SPECIMENOrdering Facility: [facility] Address: [address] [place] [address] Performed By: #### 2 4323-8, ####[facility] LABIA [id number] [place] [address] [place] Creatinine and Glomerular filtration rate.predicted panel (S/P/Bld) 63 mL/min/1.73m??? Normal >=60 [facility] Comment on above: Order Comment: Speci men Type: BLOOD SPECIMENOrdering Facility: [facility] Address: [address] [place] [address] Result Comment: Carol mated Glomerular Filtration Rate [...] actual GFR. Performed By: #### 2 4323-8, 0 ####[facility] LABIA [id number] [place] [address] [place] Glucose [Mass/Vol] 95 mg/dL Normal 74-99 [facility] Comment on above: Order Comment: Speci men Type: BLOOD SPECIMENOrdering Facility: [facility] Address: [address] [place] [address] Result Comment: The [place] [employer] (ADA) provides guidance for cutoff [...] Standards of Medical Care in Diabetes 2016, [place] [employer]. Diabetes Care. 2016.39(Suppl 1). Performed By: #### 2 43238, 0 ####[facility] LABCLIA [id number] [place] [address] [place] Potassium [Moles/Vol] 3.7 mmol/L Normal 3.7-5.1 [facility] Comment on above: Order Comment: Speci men Type: BLOOD SPECIMENOrdering Facility: [facility] Address: [address] [place] [address] Performed By: #### 2 43201-08, 0 ####[facility] LABCLIA [id number] [place] [address] [place] Protein [Mass/Vol] 5.7 g/dL Low 6.3-8.0 [facility] Comment on above: Order Comment: Speci men Type: BLOOD SPECIMENOrdering Facility: [facility] Address: [address] [place] [address] Performed By: #### 2 43201-08, 0 ####[facility] LABCLIA [id number] [place] [address] [place] Sodium [Moles/Vol] 139 mmol/L Normal 136-144 [facility] Comment on above: Order Comment: Speci men Type: BLOOD SPECIMENOrdering Facility: [facility] Address: [address] [place] [address] Performed By: #### 2 4328, 0 ####[facility] LABIA [id number] [place] [id number] [place] Urea nitrogen [Mass/Vol] 8 mg/dL Low 9-24 [facility] Comment on above: Order Comment: Speci men Type: BLOOD SPECIMENOrdering Facility: [facility] Address: [address] [place] [address] Performed By: #### 2 4323-8, 2532-0 ####[facility] [id number] [place] [id number] [place] Ferritin SerPl-mCncon 2023 Ferritin [Mass/Vol] 649.0 ng/mL High 30.3-565.7 [facility] Comment on above: Order Comment: Speci men Type: BLOOD SPECIMENOrdering Facility: [facility] Address: [address] [place] [address] Performed By: #### 1 988-5, 78196-7, 2777-1, 3084-1, 2276-4 ####[facility] [id number] [place] [address] [place] LDH SerPl-cCncon 04-10-2024 LDH [Catalytic activity/Vol] 144 U/L Normal 135-225 [facility] Comment on above: Order Comment: Speci men Type: BLOOD SPECIMENOrdering Facility: [facility] Address: [address] [place] [address] Performed By: #### 2 4323-8, 253-0 ####[facility] [id number] [place] [id number] [place] Magnesium SerPl-mCncon 04-10 Magnesium [Mass/Vol] 1.9 mg/dL Normal 1.7-2.3 [facility] Comment on above: Order Comment: Speci men Type: BLOOD SPECIMENOrdering Facility: [facility] Address: [address] [place] [address] Performed By: #### 1 988-5, 33553-1, 7-1, 3084-1, 6-4 ####[facility] LABCLIA [id number] [place] [id number] [place] NURSING PROGon 04-10-2024 NURSING PROG Normal [facility] Phosphate SerPl-mCncon 04-10 Phosphate [Mass/Vol] 3.3 mg/dL Normal 2.7-4.8 [facility] Comment on above: Order Comment: Speci men Type: BLOOD SPECIMENOrdering Facility: [facility] Address: [address] [place] [address] Performed By: #### 1 988-5, 31337-7, 2776-1, 3084-1, 6-4 ####[facility] LABIA [id number] [place] [address] [place] Urate SerPl-ncon Urate [Mass/Vol] 1.5 mg/dL Low 4.0-8.1 [facility] Comment on above: Order Comment: Speci men Type: BLOOD SPECIMENOrdering Facility: [facility] Address: [address] [place] [address] Performed By: #### 1 988-5, 36399-1, 2776-1, 3084-1, 6-4 ####[facility] LABIA [id number] [place] [address] [place] XR CHEST 1V FRONTAL PORTon 0 04-10-2024 XR CHEST 1V FRONTAL PORT Normal [facility] CBC W Auto Differential pane l (Bld)on 04-09-2024 Basophils (Bld) [#/Vol] Normal [facility] Comment on above: Order Comment: Speci men Type: BLOOD SPECIMENOrdering Facility: [facility] Address: [address] [place] [address] Result Comment: Too Few Cells To Do Differential. Performed By: #### 5 7021-8 ####[facility] LABCLIA [id number] [place] [address] [place] Basophils/100 WBC (Bld) Normal [facility] Comment on above: Order Comment: Speci men Type: BLOOD SPECIMENOrdering Facility: [facility] Address: [address] [place] [address] Result Comment: Too Few Cells To Do Differential. Performed By: #### 5 7021-8 ####[facility] LABCLIA [id number] [place] [address] [place] Differential cell count method Nom (Bld) Auto Normal [facility] Comment on above: Order Comment: Speci men Type: BLOOD SPECIMENOrdering Facility: [facility] Address: [address] [place] [address] Performed By: #### 5 7021-8 ####[facility] LABCLIA [id number] [place] [address] [place] Eosinophils (Bld) [#/Vol] Normal [facility] Comment on above: Order Comment: Speci men Type: BLOOD SPECIMENOrdering Facility: [facility] Address: [address] [place] [address] Result Comment: Too Few Cells To Do Differential. Performed By: #### 5 7021-8 ####[facility] LABCLIA [id number] [place] [address] [place] Eosinophils/100 WBC (Bld) Normal [facility] Comment on above: Order Comment: Speci men Type: BLOOD SPECIMENOrdering Facility: [facility] Address: [address] [place] [address] Result Comment: Too Few Cells To Do Differential. Performed By: #### 5 7021-8 ####[facility] LABCLIA [id number] [place] [address] [place] Erythrocyte distribution width (RBC) [Ratio] 13.4 % Normal 11.5-15.0 [facility] Comment on above: Order Comment: Speci men Type: BLOOD SPECIMENOrdering Facility: [facility] Address: [address] [place] [address] Performed By: #### 5 7021-8 ####[facility] LABCLIA [id number] [place] [address] [place] Hematocrit (Bld) [Volume fraction] 33.3 % Low 39.0-51.0 [facility] Comment on above: Order Comment: Speci men Type: BLOOD SPECIMENOrdering Facility: [facility] Address: [address] [place] [address] Performed By: #### 5 7021-8 ####[facility] LABIA [id number] [place] [address] [place] Hemoglobin (Bld) [Mass/Vol] 11.3 g/dL Low 13.0-17.0 [facility] Comment on above: Order Comment: Speci men Type: BLOOD SPECIMENOrdering Facility: [facility] Address: [address] [place] [address] Performed By: #### 5 7021-8 ####[facility] LABIA [id number] [place] [address] [place] Immature granulocytes (Bld) [#/Vol] Normal [facility] Comment on above: Order Comment: Speci men Type: BLOOD SPECIMENOrdering Facility: [facility] Address: [address] [place] [address] Result Comment: Too Few Cells To Do Differential. Performed By: #### 5 7021-8 ####[facility] LABCLIA [id number] [place] [address] [place] Immature granulocytes/100 WBC (Bld) Normal [facility] Comment on above: Order Comment: Speci men Type: BLOOD SPECIMENOrdering Facility: [facility] Address: [address] [place] [address] Result Comment: Too Few Cells To Do Differential. Performed By: #### 5 7021-8 ####[facility] LABCLIA [id number] [place] [address] [place] Lymphocytes (Bld) [#/Vol] Normal [facility] Comment on above: Order Comment: Speci men Type: BLOOD SPECIMENOrdering Facility: [facility] Address: [address] [place] [address] Result Comment: Too Few Cells To Do Differential. Performed By: #### 5 7021-8 ####[facility] LABIA [id number] [place] [address] [place] Lymphocytes/100 WBC (Bld) Normal [facility] Comment on above: Order Comment: Speci men Type: BLOOD SPECIMENOrdering Facility: [facility] Address: [address] [place] [address] Result Comment: Too Few Cells To Do Differential. Performed By: #### 5 7021-8 ####[facility] LABIA [id number] [place] [address] [place] MCH (RBC) [Entitic mass] 30.4 pg Normal 26.0-34.0 [facility] Comment on above: Order Comment: Speci men Type: BLOOD SPECIMENOrdering Facility: [facility] Address: [address] [place] [address] Performed By: #### 5 7021-8 ####[facility] LABIA [id number] [place] [address] [place] MCHC (RBC) [Mass/Vol] 33.9 g/dL Normal 30.5-36.0 [facility] Comment on above: Order Comment: Speci men Type: BLOOD SPECIMENOrdering Facility: [facility] Address: [address] [place] [address] Performed By: #### 5 7021-8 ####[facility] LABIA [id number] [place] [address] [place] MCV (RBC) [Entitic vol] 89.5 fL Normal 80.0-100.0 [facility] Comment on above: Order Comment: Speci men Type: BLOOD SPECIMENOrdering Facility: [facility] Address: [address] [place] [address] Performed By: #### 5 7021-8 ####[facility] LABCLIA [id number] [place] [address] [place] Monocytes (Bld) [#/Vol] Normal [facility] Comment on above: Order Comment: Speci men Type: BLOOD SPECIMENOrdering Facility: [facility] Address: [address] [place] [address] Result Comment: Too Few Cells To Do Differential. Performed By: #### 5 7021-8 ####[facility] LABCLIA [id number] [place] [address] [place] Monocytes/100 WBC (Bld) Normal [facility] Comment on above: Order Comment: Speci men Type: BLOOD SPECIMENOrdering Facility: [facility] Address: [address] [place] [address] Result Comment: Too Few Cells To Do Differential. Performed By: #### 5 7021-8 ####[facility] LABCLIA [id number] [place] [address] [place] Neutrophils (Bld) [#/Vol] Normal [facility] Comment on above: Order Comment: Speci men Type: BLOOD SPECIMENOrdering Facility: [facility] Address: [address] [place] [address] Result Comment: Too Few Cells To Do Differential. Performed By: #### 5 7021-8 ####[facility] LABCLIA [id number] [place] [address] [place] Neutrophils/100 WBC (Bld) Normal [facility] Comment on above: Order Comment: Speci men Type: BLOOD SPECIMENOrdering Facility: [facility] Address: [address] [place] [address] Result Comment: Too Few Cells To Do Differential. Performed By: #### 5 7021-8 ####[facility] LABCLIA [id number] [place] [address] [place] Nucleated RBC (Bld) [#/Vol] 10*3/uL Normal <0.01 [facility] Comment on above: Order Comment: Speci men Type: BLOOD SPECIMENOrdering Facility: [facility] Address: [address] [place] [address] Performed By: #### 5 7021-8 ####[facility] LABIA [id number] [place] [address] [place] Nucleated RBC/100 WBC (Bld) [Ratio] 0.0 /100 WBC Normal [facility] Comment on above: Order Comment: Speci men Type: BLOOD SPECIMENOrdering Facility: [facility] Address: [address] [place] [address] Performed By: #### 5 7021-8 ####[facility] LABCLIA [id number] [place] [address] [place] Platelet mean volume (Bld) [Entitic vol] 9.4 fL Normal 9.0-12.7 [facility] Comment on above: Order Comment: Speci men Type: BLOOD SPECIMENOrdering Facility: [facility] Address: [address] [place] [address] Performed By: #### 5 7021-8 ####[facility] LABCLIA [id number] [place] [address] [place] Platelets (Bld) [#/Vol] 81 10*3/uL Low 150-400 [facility] Comment on above: Order Comment: Speci men Type: BLOOD SPECIMENOrdering Facility: [facility] Address: [address] [place] [address] Result Comment: Resu lts checked and verified.No clot detected. Performed By: #### 5 7021-8 ####[facility] LABCLIA [id number] [place] [address] [place] RBC (Bld) [#/Vol] 3.72 10*6/uL Low 4.20-6.00 [place] Comment on above: Order Comment: Speci men Type: BLOOD SPECIMENOrdering Facility: [facility] Address: [address] [place] [address] Performed By: #### 5 7021-8 ####[facility] [id number] [place] [address] [place] WBC (Bld) [#/Vol] 0.48 10*3/uL Low 3.70-11.00 [place] Comment on above: Order Comment: Speci men Type: BLOOD SPECIMENOrdering Facility: [facility] Address: [address] [place] [address] Result Comment: Resu lts checked and verified.No clot detected. Performed By: #### 5 7021-8 ####[facility] [id number] [place] [address] [place] CRP SerPl-mCncon 04-09-2024 CRP [Mass/Vol] 11.8 mg/dL High <0.9 [facility] Comment on above: Order Comment: Speci men Type: BLOOD SPECIMENOrdering Facility: [facility] Address: [address] [place] [address] Performed By: #### 2 276-4, 80698-3, 2777-1, 3084-1, 1988- ####[facility] [id number] [place] [id number] [place] Comprehensive metabolic 2000 panelon 04-09-2024 Albumin [Mass/Vol] 3.4 g/dL Low 3.9-4.9 [facility] Comment on above: Order Comment: Speci men Type: BLOOD SPECIMENOrdering Facility: [facility] Address: [address] [place] [address] Performed By: #### 2 4323-8, 2531-0 ####[facility] LABCLIA [id number] [place] [address] [place] ALP [Catalytic activity/Vol] 140 U/L High 38-113 [facility] Comment on above: Order Comment: Speci men Type: BLOOD SPECIMENOrdering Facility: [facility] Address: [address] [place] [address] Performed By: #### 2 4323-8, 2531-0 ####[facility] LABCLIA [id number] [place] [address] [place] ALT [Catalytic activity/Vol] 16 U/L Normal 10-54 [facility] Comment on above: Order Comment: Speci men Type: BLOOD SPECIMENOrdering Facility: [facility] Address: [address] [place] [address] Performed By: #### 2 4328, 2531-0 ####[facility] LABCLIA [id number] [place] [address] [place] Anion gap [Moles/Vol] 9 mmol/L Normal 8-15 [facility] Comment on above: Order Comment: Speci men Type: BLOOD SPECIMENOrdering Facility: [facility] Address: [address] [place] [address] Performed By: #### 2 4323-8, 2531-0 ####[facility] LABCLIA [id number] [place] [address] [place] AST [Catalytic activity/Vol] 15 U/L Normal 14-40 [facility] Comment on above: Order Comment: Speci men Type: BLOOD SPECIMENOrdering Facility: [facility] Address: [address] [place] [address] Performed By: #### 2 4323-8, 2532-0 ####[facility] LABCLIA [id number] [place] [id number] [place] Bilirubin [Mass/Vol] 0.4 mg/dL Normal 0.2-1.3 [facility] Comment on above: Order Comment: Speci men Type: BLOOD SPECIMENOrdering Facility: [facility] Address: [address] [place] [address] Performed By: #### 2 4323-8, 2531-0 ####[facility] LABCL[facility] [id number] [place] [address] [place] Calcium [Mass/Vol] 8.4 mg/dL Low 8.5-10.2 [facility] Comment on above: Order Comment: Speci men Type: BLOOD SPECIMENOrdering Facility: [facility] Address: [address] [place] [address] Performed By: #### 2 4323-8, 2531-0 ####[facility] LABCLIA [id number] [place] [address] [place] Chloride [Moles/Vol] 108 mmol/L High 98-107 [facility] Comment on above: Order Comment: Speci men Type: BLOOD SPECIMENOrdering Facility: [facility] Address: [address] [place] [address] Performed By: #### 2 432-8, 2531-0 ####[facility] LABCL[facility] [id number] [place] [address] [place] CO2 [Moles/Vol] 23 mmol/L Normal 22-30 [facility] Comment on above: Order Comment: Speci men Type: BLOOD SPECIMENOrdering Facility: [facility] Address: [address] [place] [address] Performed By: #### 2 4323-8, 2531-0 ####[facility] LABCLIA [id number] [place] [id number] [place] Creatinine [Mass/Vol] 1.14 mg/dL Normal 0.73-1.22 [facility] Comment on above: Order Comment: Speci men Type: BLOOD SPECIMENOrdering Facility: [facility] Address: [address] [place] [address] Performed By: #### 2 4323-8, 2532-0 ####[facility] [id number] [place] [address] [place] Creatinine and Glomerular filtration rate.predicted panel (S/P/Bld) 70 mL/min/1.73m??? Normal >=60 [facility] Comment on above: Order Comment: Sara randle Type: BLOOD SPECIMENOrdering Facility: [facility] Address: [address] [place] [address] Result Comment: Carol mated Glomerular Filtration Rate [...] actual GFR. Performed By: #### 2 4323-8, 2532-0 ####[facility] [id number] [place] [address] [place] Glucose [Mass/Vol] 94 mg/dL Normal 74-99 [facility] Comment on above: Order Comment: Sara randle Type: BLOOD SPECIMENOrdering Facility: [facility] Address: [address] [place] [address] Result Comment: The [place] [employer] (ADA) provides guidance for cutoff [...] Standards of Medical Care in Diabetes 2016, [place] [employer]. Diabetes Care. 2016.39(Suppl 1). Performed By: #### 2 4328, 0 ####[facility]CL[facility] [id number] [address] [address] [place] Potassium [Moles/Vol] 3.9 mmol/L Normal 3.7-5.1 [facility] Comment on above: Order Comment: Speci men Type: BLOOD SPECIMENOrdering Facility: [facility] Address: [address] [place] [address] Performed By: #### 2 4328, 0 ####[facility]CL[facility] [id number] [place] [address] [place] Protein [Mass/Vol] 5.5 g/dL Low 6.3-8.0 [facility] Comment on above: Order Comment: Speci men Type: BLOOD SPECIMENOrdering Facility: [facility] Address: [address] [place] [address] Performed By: #### 2 4328, 0 ####[facility] [id number] [place] [address] [place] Sodium [Moles/Vol] 140 mmol/L Normal 136-144 [facility] Comment on above: Order Comment: Speci men Type: BLOOD SPECIMENOrdering Facility: [facility] Address: [address] [place] [address] Performed By: #### 2 4328, 0 ####[facility] [id number] [address] [address] [place] Urea nitrogen [Mass/Vol] 11 mg/dL Normal 9-24 [facility] Comment on above: Order Comment: Speci men Type: BLOOD SPECIMENOrdering Facility: [facility] Address: [address] [place] [address] Performed By: #### 2 43238, 2531-0 ####[facility] [id number] [place] [id number] [place] Ferritin SerPl-mCncon 2023 Ferritin [Mass/Vol] 522.0 ng/mL Normal 30.3-565.7 [facility] Comment on above: Order Comment: Speci men Type: BLOOD SPECIMENOrdering Facility: [facility] Address: [address] [place], [place] [address] Performed By: #### 2 276-4, 83559-8, 2776-1, 3083-11, 1988-03 ####[facility] LABCL[facility] [id number] [place] [id number] [place] LDH SerPl-cCncon 04-09-2024 LDH [Catalytic activity/Vol] 133 U/L Low 135-225 [facility] Comment on above: Order Comment: Speci men Type: BLOOD SPECIMENOrdering Facility: [facility] Address: [address] [place] [address] Performed By: #### 2 4323-8, 2532-0 ####[facility] [id number] [place] [address] [place] MEDICAL EMERon 04-09-2024 MEDICAL FILOMENA Normal [facility] Magnesium SerPl-mCncon 04-09 Magnesium [Mass/Vol] 2.1 mg/dL Normal 1.7-2.3 [facility] Comment on above: Order Comment: Speci men Type: BLOOD SPECIMENOrdering Facility: [facility] Address: [address] [place], [place] [address] Performed By: #### 2 276-4, 25708-6, 2776-1, 3083-11, 1988-03 ####[facility] [id number] [place] [id number] [place] Phosphate SerPl-mCncon 04-09 Phosphate [Mass/Vol] 2.7 mg/dL Normal 2.7-4.8 [facility] Comment on above: Order Comment: Speci men Type: BLOOD SPECIMENOrdering Facility: [facility] Address: [address] [place] [address] Performed By: #### 2 276-4, 47905-4, 2776-11, 3083-11, 1988-03 ####[facility] [id number] [place] [address] [place] Urate SerPl-mCncon Urate [Mass/Vol] 1.8 mg/dL Low 4.0-8.1 [facility] Comment on above: Order Comment: Speci men Type: BLOOD SPECIMENOrdering Facility: [facility] Address: [address] [place] [address] Performed By: #### 2 276-4, 90385-5, 2776-11, 3083-11, 1988-03 ####[facility] [id number] [place] [address] [place] Bacteria Bld Culton 04-08-20 24 Bacteria identified Cx Nom (Bld) CULTURE, BLOOD: No growth 5 days Normal [facility] Comment on above: Performed By: #### 6 00-7 ####[facility] [id number] [place] [address] [place] Bacteria identified Cx Nom (Bld) CULTURE, BLOOD: No growth 5 days Normal [facility] Comment on above: Performed By: #### 6 00-7 ####[facility]CLIA [id number] [place] [address] [place] CASE MANAGEMon 04-08-2024 CASE MANAGEM Normal [facility] CBC W Auto Differential pane l (Bld)on 04-08-2024 Basophils (Bld) [#/Vol] 0.00 10*3/uL Normal <0.11 [facility] Comment on above: Order Comment: Speci men Type: BLOOD SPECIMENOrdering Facility: [facility] Address: [address] [place] [address] Performed By: #### 5 7021-8 ####[facility] LABCLIA [id number] [place] [address] [place] Basophils/100 WBC (Bld) 0.0 % Normal [facility] Comment on above: Order Comment: Speci men Type: BLOOD SPECIMENOrdering Facility: [facility] Address: [address] [place] [address] Performed By: #### 5 7021-8 ####[facility] LABCLIA [id number] [place] [address] [place] Differential cell count method Nom (Bld) Manual Normal [facility] Comment on above: Order Comment: Speci men Type: BLOOD SPECIMENOrdering Facility: [facility] Address: [address] [place] [address] Performed By: #### 5 7021-8 ####[facility] LABCLIA [id number] [place] [address] [place] Eosinophils (Bld) [#/Vol] 0.03 10*3/uL Normal <0.46 [facility] Comment on above: Order Comment: Speci men Type: BLOOD SPECIMENOrdering Facility: [facility] Address: [address] [place] [address] Performed By: #### 5 7021-8 ####[facility] LABCLIA [id number] [place] [address] [place] Eosinophils/100 WBC (Bld) 0.9 % Normal [facility] Comment on above: Order Comment: Speci men Type: BLOOD SPECIMENOrdering Facility: [facility] Address: [address] [place] [address] Performed By: #### 5 7021-8 ####[facility] LABCLIA [id number] [place] [address] [place] Erythrocyte distribution width (RBC) [Ratio] 13.4 % Normal 11.5-15.0 [facility] Comment on above: Order Comment: Speci men Type: BLOOD SPECIMENOrdering Facility: [facility] Address: [address] [place] [address] Performed By: #### 5 7021-8 ####[facility] LABIA [id number] [place] [address] [place] Hematocrit (Bld) [Volume fraction] 35.3 % Low 39.0-51.0 [facility] Comment on above: Order Comment: Speci men Type: BLOOD SPECIMENOrdering Facility: [facility] Address: [address] [place] [address] Performed By: #### 5 7021-8 ####[facility] LABIA [id number] [place] [address] [place] Hemoglobin (Bld) [Mass/Vol] 12.2 g/dL Low 13.0-17.0 [facility] Comment on above: Order Comment: Speci men Type: BLOOD SPECIMENOrdering Facility: [facility] Address: [address] [place] [address] Performed By: #### 5 7021-8 ####[facility] LABIA [id number] [place] [address] [place] Lymphocytes (Bld) [#/Vol] 0.00 10*3/uL Low 1.00-4.00 [facility] Comment on above: Order Comment: Speci men Type: BLOOD SPECIMENOrdering Facility: [facility] Address: [address] [place] [address] Performed By: #### 5 7021-8 ####[facility] LABIA [id number] [place] [address] [place] Lymphocytes/100 WBC (Bld) 0.0 % Normal [facility] Comment on above: Order Comment: Speci men Type: BLOOD SPECIMENOrdering Facility: [facility] Address: [address] [place] [address] Performed By: #### 5 7021-8 ####[facility]UN[facility] [id number] [place] [address] [place] MCH (RBC) [Entitic mass] 30.5 pg Normal 26.0-34.0 [facility] Comment on above: Order Comment: Speci men Type: BLOOD SPECIMENOrdering Facility: [facility] Address: [address] [place] [address] Performed By: #### 5 7021-8 ####[facility] [id number] [place] [address] [place] MCHC (RBC) [Mass/Vol] 34.6 g/dL Normal 30.5-36.0 [facility] Comment on above: Order Comment: Speci men Type: BLOOD SPECIMENOrdering Facility: [facility] Address: [address] [place] [address] Performed By: #### 5 7021-8 ####[facility] [id number] [place] [address] [place] MCV (RBC) [Entitic vol] 88.3 fL Normal 80.0-100.0 [facility] Comment on above: Order Comment: Speci men Type: BLOOD SPECIMENOrdering Facility: [facility] Address: [address] [place] [address] Performed By: #### 5 7021-8 ####[facility]UN[facility] [id number] [place] [address] [place] Monocytes (Bld) [#/Vol] 0.00 10*3/uL Normal <0.87 [facility] Comment on above: Order Comment: Speci men Type: BLOOD SPECIMENOrdering Facility: [facility] Address: [address] [place] [address] Performed By: #### 5 7021-8 ####[facility]UN[facility] [id number] [place] [address] [place] Monocytes/100 WBC (Bld) 0.0 % Normal [facility] Comment on above: Order Comment: Speci men Type: BLOOD SPECIMENOrdering Facility: [facility] Address: [address] [place] [address] Performed By: #### 5 7021-8 ####[facility] LABCLIA [id number] [place] [address] [place] Neutrophils (Bld) [#/Vol] 3.21 10*3/uL Normal 1.45-7.50 [facility] Comment on above: Order Comment: Speci men Type: BLOOD SPECIMENOrdering Facility: [facility] Address: [address] [place] [address] Performed By: #### 5 7021-8 ####[facility] LABCLIA [id number] [place] [address] [place] Neutrophils/100 WBC (Bld) 99.1 % Normal [facility] Comment on above: Order Comment: Speci men Type: BLOOD SPECIMENOrdering Facility: [facility] Address: [address] [place] [address] Performed By: #### 5 7021-8 ####[facility] LABCLIA [id number] [place] [address] [place] Nucleated RBC (Bld) [#/Vol] 10*3/uL Normal <0.01 [facility] Comment on above: Order Comment: Speci men Type: BLOOD SPECIMENOrdering Facility: [facility] Address: [address] [place] [address] Performed By: #### 5 7021-8 ####[facility] LABCLIA [id number] [place] [address] [place] Nucleated RBC/100 WBC (Bld) [Ratio] 0.0 /100 WBC Normal [facility] Comment on above: Order Comment: Speci men Type: BLOOD SPECIMENOrdering Facility: [facility] Address: [address] [place] [address] Performed By: #### 5 7021-8 ####[facility] LABIA [id number] [place] [address] [place] Ovalocytes LM Ql (Bld) Few Normal [facility] Comment on above: Order Comment: Speci men Type: BLOOD SPECIMENOrdering Facility: [facility] Address: [address] [place] [address] Performed By: #### 5 7021-8 ####[facility] LABIA [id number] [place] [address] [place] Platelet mean volume (Bld) [Entitic vol] 9.4 fL Normal 9.0-12.7 [facility] Comment on above: Order Comment: Speci men Type: BLOOD SPECIMENOrdering Facility: [facility] Address: [address] [place] [address] Performed By: #### 5 7021-8 ####[facility] LABIA [id number] [place] [address] [place] Platelets (Bld) [#/Vol] 97 10*3/uL Low 150-400 [facility] Comment on above: Order Comment: Speci men Type: BLOOD SPECIMENOrdering Facility: [facility] Address: [address] [place] [address] Result Comment: No c lot detected. Performed By: #### 5 7021-8 ####[facility] LABIA [id number] [place] [address] [place] Platelets Estimate (Bld) [#/Vol] Decreased Normal [facility] Comment on above: Order Comment: Speci men Type: BLOOD SPECIMENOrdering Facility: [facility] Address: [address] [place] [address] Performed By: #### 5 7021-8 ####[facility] LABCLIA [id number] [address] [id number] [address] [place] RBC (Bld) [#/Vol] 4.00 10*6/uL Low 4.20-6.00 [place] Comment on above: Order Comment: Speci men Type: BLOOD SPECIMENOrdering Facility: [facility] Address: [address] [place] [address] Performed By: #### 5 7021-8 ####[facility] LABCLIA [id number] [place] [address] [place] RED CELL MORPH Reviewed: see result s of individual morphologies Normal [facility] Comment on above: Order Comment: Speci men Type: BLOOD SPECIMENOrdering Facility: [facility] Address: [address] [place] [address] Performed By: #### 5 7021-8 ####[facility] LABCLIA [id number] [place] [address] [place] WBC (Bld) [#/Vol] 3.24 10*3/uL Low 3.70-11.00 [place] Comment on above: Order Comment: Speci men Type: BLOOD SPECIMENOrdering Facility: [facility] Address: [address] [place] [address] Performed By: #### 5 7021-8 ####[facility] LABCLIA [id number] [place] [address] [place] CRP SerPl-mCncon 04-08-2024 CRP [Mass/Vol] 5.6 mg/dL High <0.9 [facility] Comment on above: Order Comment: Speci men Type: BLOOD SPECIMENOrdering Facility: [facility] Address: [address] [place] [address] Performed By: #### 1 988-5, 44714-8, 3084-1, 2777-1, 2276-4 ####[facility] LABCLIA [id number] [place] [id number] [place] Comprehensive metabolic 2000 panelon 04-08-2024 Albumin [Mass/Vol] 3.9 g/dL Normal 3.9-4.9 [facility] Comment on above: Order Comment: Speci men Type: BLOOD SPECIMENOrdering Facility: [facility] Address: [address] [place] [address] Performed By: #### 2 4323-8, 2531-0 ####[facility] LABCLIA [id number] [place] [address] [place] ALP [Catalytic activity/Vol] 172 U/L High 38-113 [facility] Comment on above: Order Comment: Speci men Type: BLOOD SPECIMENOrdering Facility: [facility] Address: [address] [place] [address] Performed By: #### 2 4323-8, 2531-0 ####[facility] LABCLIA [id number] [place] [address] [place] ALT [Catalytic activity/Vol] 15 U/L Normal 10-54 [facility] Comment on above: Order Comment: Speci men Type: BLOOD SPECIMENOrdering Facility: [facility] Address: [address] [place] [address] Performed By: #### 2 4323-8, 2531-0 ####[facility] LABCLIA [id number] [place] [address] [place] Anion gap [Moles/Vol] 10 mmol/L Normal 8-15 [facility] Comment on above: Order Comment: Speci men Type: BLOOD SPECIMENOrdering Facility: [facility] Address: [address] [place] [address] Performed By: #### 2 4323-8, 2531-0 ####[facility] LABCLIA [id number] [place] [address] [place] AST [Catalytic activity/Vol] 16 U/L Normal 14-40 [facility] Comment on above: Order Comment: Speci men Type: BLOOD SPECIMENOrdering Facility: [facility] Address: [address] [place] [address] Performed By: #### 2 432-8, 2531-0 ####[facility] LABCLIA [id number] [address] [address] [place] Bilirubin [Mass/Vol] 0.7 mg/dL Normal 0.2-1.3 [facility] Comment on above: Order Comment: Speci men Type: BLOOD SPECIMENOrdering Facility: [facility] Address: [address] [place] [address] Performed By: #### 2 4328, 2531-0 ####[facility] LABCLIA [id number] [place] [address] [place] Calcium [Mass/Vol] 8.6 mg/dL Normal 8.5-10.2 [facility] Comment on above: Order Comment: Speci men Type: BLOOD SPECIMENOrdering Facility: [facility] Address: [address] [place] [address] Performed By: #### 2 4328, 2531-0 ####[facility] LABCLIA [id number] [place] [address] [place] Chloride [Moles/Vol] 102 mmol/L Normal 98-107 [facility] Comment on above: Order Comment: Speci men Type: BLOOD SPECIMENOrdering Facility: [facility] Address: [address] [place], [place] [address] Performed By: #### 2 4328, 2531-0 ####[facility] LABCLIA [id number] [address] [address] [place] CO2 [Moles/Vol] 22 mmol/L Normal 22-30 [facility] Comment on above: Order Comment: Speci men Type: BLOOD SPECIMENOrdering Facility: [facility] Address: [address] [place], [place] [address] Performed By: #### 2 4328, 2531-0 ####[facility] LABCLIA [id number] [place] [address] [place] Creatinine [Mass/Vol] 1.02 mg/dL Normal 0.73-1.22 [facility] Comment on above: Order Comment: Sara randle Type: BLOOD SPECIMENOrdering Facility: [facility] Address: [address] [place] [address] Performed By: #### 2 4323-8, 2531-0 ####[facility] [id number] [place] [address] [place] Creatinine and Glomerular filtration rate.predicted panel (S/P/Bld) 81 mL/min/1.73m??? Normal >=60 [facility] Comment on above: Order Comment: Sara randle Type: BLOOD SPECIMENOrdering Facility: [facility] Address: [address] [place] [address] Result Comment: Carol mated Glomerular Filtration Rate [...] actual GFR. Performed By: #### 2 4323-8, 0 ####[facility] LABIA [id number] [place] [address] [place] Glucose [Mass/Vol] 96 mg/dL Normal 74-99 [facility] Comment on above: Order Comment: Sara randle Type: BLOOD SPECIMENOrdering Facility: [facility] Address: [address] [place] [address] Result Comment: The [place] [employer] (ADA) provides guidance for cutoff [...] Standards of Medical Care in Diabetes 2016, [place] [employer]. Diabetes Care. 2016.39(Suppl 1). Performed By: #### 2 43238, 2531-0 ####[facility] LABCLIA [id number] [place] [address] [place] Potassium [Moles/Vol] 3.8 mmol/L Normal 3.7-5.1 [facility] Comment on above: Order Comment: Speci men Type: BLOOD SPECIMENOrdering Facility: [facility] Address: [address] [place] [address] Performed By: #### 2 4328, 2531-0 ####[facility] LABCLIA [id number] [place] [address] [place] Protein [Mass/Vol] 5.8 g/dL Low 6.3-8.0 [facility] Comment on above: Order Comment: Speci men Type: BLOOD SPECIMENOrdering Facility: [facility] Address: [address] [place] [address] Performed By: #### 2 43201-08, 0 ####[facility] LABCLIA [id number] [place] [address] [place] Sodium [Moles/Vol] 134 mmol/L Low 136-144 [facility] Comment on above: Order Comment: Speci men Type: BLOOD SPECIMENOrdering Facility: [facility] Address: [address] [place] [address] Performed By: #### 2 43201-08, 0 ####[facility] LABCLIA [id number] [address] [address] [place] Urea nitrogen [Mass/Vol] 12 mg/dL Normal 9-24 [facility] Comment on above: Order Comment: Speci men Type: BLOOD SPECIMENOrdering Facility: [facility] Address: [address] [place] [address] [place] [id number] Performed By: #### 2 4323-8, 2532-0 ####[facility] LABCLIA [id number] [place] [id number] [place] Ferritin SerPl-mCncon 2023 Ferritin [Mass/Vol] 433.0 ng/mL Normal 30.3-565.7 [facility] Comment on above: Order Comment: Speci men Type: BLOOD SPECIMENOrdering Facility: [facility] Address: [address] [place] [address] Performed By: #### 1 988-5, 62935-2, 3084-1, 2777-1, 6-4 ####[facility] LABCLIA [id number] [place] [address] [place] LDH SerPl-cCncon 04-08-2024 LDH [Catalytic activity/Vol] 167 U/L Normal 135-225 [facility] Comment on above: Order Comment: Speci men Type: BLOOD SPECIMENOrdering Facility: [facility] Address: [address] [place] [address] Performed By: #### 2 4323-8, 2-0 ####[facility] LABCLIA [id number] [place] [address] [place] Magnesium SerPl-mCncon 04-08 Magnesium [Mass/Vol] 1.9 mg/dL Normal 1.7-2.3 [facility] Comment on above: Order Comment: Speci men Type: BLOOD SPECIMENOrdering Facility: [facility] Address: [address] [place] [address] Performed By: #### 1 988-5, 36936-1, 3084-1, 2777-1, 2276-4 ####[facility] LABCLIA [id number] [place] [id number] [place] NURSING PROGon 04-08-2024 NURSING PROG Normal [facility] Phosphate SerPl-mCncon 04-08 Phosphate [Mass/Vol] 3.0 mg/dL Normal 2.7-4.8 [facility] Comment on above: Order Comment: Speci men Type: BLOOD SPECIMENOrdering Facility: [facility] Address: [address] [place] [address] Performed By: #### 1 988-5, 34215-1, 3084-1, 2777-1, 2276-4 ####[facility] LABCLIA [id number] [address] [place] SEPSIS LACTATEon 04-08-2024 Lactate [Moles/Vol] 0.9 mmol/L Normal <=2.0 [place] Comment on above: Order Comment: Speci men Type: BLOOD SPECIMENOrdering Facility: [facility] Address: [address] [place] [address] Performed By: #### S LACT ####[facility] LABCLIA [id number] [place] [address] [place] SOCIAL WORKon 04-08-2024 SOCIAL WORK Normal [facility] TYPE + SCREENon 04-08-2024 ABO B Normal [facility] Comment on above: Order Comment: Speci men Type: BLOOD SPECIMENOrdering Facility: [facility] Address: [address] [place] [address] Performed By: #### T SCR ####[facility] BLO[facility] BANKCLIA [id number] [place] [address] [place] HISTORICAL AB SCR STATUS Negative Normal [facility] Comment on above: Order Comment: Speci men Type: BLOOD SPECIMENOrdering Facility: [facility] Address: [address] [place] [address] Performed By: #### T SCR ####[facility] BLOOD BANKCLIA [id number] [place] [address] [place] Rh Nom (Bld) Negative Normal [facility] Comment on above: Order Comment: Speci men Type: BLOOD SPECIMENOrdering Facility: [facility] Address: [address] [place] [address] Performed By: #### T SCR ####[facility] BLOOD BANKIA [id number] [place] [address] [place] TYPE AND SCREEN EXPIRATION 04/11/2024 23:59 Normal [facility] Comment on above: Order Comment: Speci men Type: BLOOD SPECIMENOrdering Facility: [facility] Address: [address] [place] [address] Performed By: #### T SCR ####[facility] BLOOD [facility] [id number] [place] [address] [place] Urate SerPl-mCncon Urate [Mass/Vol] 3.1 mg/dL Low 4.0-8.1 [facility] Comment on above: Order Comment: Speci men Type: BLOOD SPECIMENOrdering Facility: [facility] Address: [address] [place] [address] Performed By: #### 1 988-5, 81868-8, 3084-1, 2777-1, 2276-4 ####[facility] LABCLIA [id number] [place] [address] [place] Urinalysis complete panel (U )on 04-08-2024 Bacteria LM.HPF (Urine sed) [#/Area] Negative Normal Negative [facility] Comment on above: Order Comment: Speci men Type: URINE SPECIMENOrdering Facility: [facility] Address: [address] [place] [address] Performed By: #### 2 4356-8 ####[facility] LABCLIA [id number] [place] [address] [place] Bilirubin Ql (U) Negative Normal Negative [facility] Comment on above: Order Comment: Speci men Type: URINE SPECIMENOrdering Facility: [facility] Address: [address] [place] [address] Performed By: #### 2 4356-8 ####[facility] LABCLIA [id number] [place] [address] [place] Clarity (Unsp spec) Clear Normal Clear [place] Comment on above: Order Comment: Speci men Type: URINE SPECIMENOrdering Facility: [facility] Address: [address] [place] [address] Performed By: #### 2 4356-8 ####[facility] LABCLIA [id number] [place] [address] [place] Color (U) Yellow Normal Yellow [facility] Comment on above: Order Comment: Speci men Type: URINE SPECIMENOrdering Facility: [facility] Address: [address] [place] [address] Performed By: #### 2 4356-8 ####[facility] LABCLIA [id number] [place] [address] [place] Epithelial cells LM.HPF (Urine sed) [#/Area] None Seen Normal [facility] Comment on above: Order Comment: Speci men Type: URINE SPECIMENOrdering Facility: [facility] Address: [address] [place] [address] Performed By: #### 2 4356-8 ####[facility] LABCLIA [id number] [place] [address] [place] Glucose Test strip (U) [Mass/Vol] Negative Normal Negative [facility] Comment on above: Order Comment: Speci men Type: URINE SPECIMENOrdering Facility: [facility] Address: [address] [place] [address] Performed By: #### 2 4356-8 ####[facility] LABCLIA [id number] [place] [address] [place] Hemoglobin Ql (U) Negative Normal Negative [facility] Comment on above: Order Comment: Speci men Type: URINE SPECIMENOrdering Facility: [facility] Address: [address] [place] [address] Performed By: #### 2 4356-8 ####[facility] LABCLIA [id number] [place] [address] [place] Hyaline casts (Urine sed) [#/Area] 0 /[LPF] Normal 0 /LPF [facility] Comment on above: Order Comment: Speci men Type: URINE SPECIMENOrdering Facility: [facility] Address: [address] [place] [address] Performed By: #### 2 4356-8 ####[facility] LABCLIA [id number] [place] [address] [place] Ketones Ql (U) Negative Normal Negative [facility] Comment on above: Order Comment: Speci men Type: URINE SPECIMENOrdering Facility: [facility] Address: [address] [place] [address] Performed By: #### 2 4356-8 ####[facility] LABCLIA [id number] [place] [address] [place] Leukocyte esterase Test strip Ql (U) Negative Normal Negative [facility] Comment on above: Order Comment: Speci men Type: URINE SPECIMENOrdering Facility: [facility] Address: [address] [place] [address] Performed By: #### 2 4356-8 ####[facility] LABCLIA [id number] [place] [address] [place] Nitrite Ql (U) Negative Normal Negative [facility] Comment on above: Order Comment: Speci men Type: URINE SPECIMENOrdering Facility: [facility] Address: [address] [place] [address] Performed By: #### 2 4356-8 ####[facility] LABCLIA [id number] [place] [address] [place] pH (U) 5.5 [pH] Normal <8.5 [facility] Comment on above: Order Comment: Speci men Type: URINE SPECIMENOrdering Facility: [facility] Address: [address] [place] [address] Performed By: #### 2 4356-8 ####[facility] LABIA [id number] [place] [address] [place] Protein (U) [Mass/Vol] Negative Normal Negative [facility] Comment on above: Order Comment: Speci men Type: URINE SPECIMENOrdering Facility: [facility] Address: [address] [place] [address] Performed By: #### 2 4356-8 ####[facility] LABIA [id number] [place] [address] [place] RBC LM.HPF (Urine sed) [#/Area] 0-2 /HPF Normal 0-2 /HPF [facility] Comment on above: Order Comment: Speci men Type: URINE SPECIMENOrdering Facility: [facility] Address: [address] [place] [address] Performed By: #### 2 4356-8 ####[facility] [id number] [place] [address] [place] Specific gravity (U) [Rel density] 1.021 Normal 1.005-1.03 0 [facility] Comment on above: Order Comment: Speci men Type: URINE SPECIMENOrdering Facility: [facility] Address: [address] [place] [address] Performed By: #### 2 4356-8 ####[facility] [id number] [place] [address] [place] Urobilinogen Ql (U) 0.2 EU/dL Normal 0.2-1.0 EU/dL [facility] Comment on above: Order Comment: Speci men Type: URINE SPECIMENOrdering Facility: [facility] Address: [address] [place] [address] Performed By: #### 2 4356-8 ####[facility] [id number] [place] [address] [place] WBC LM.HPF (Urine sed) [#/Area] 0-5 /HPF Normal 0-5 /HPF [facility] Comment on above: Order Comment: Speci men Type: URINE SPECIMENOrdering Facility: [facility] Address: [address] [place] [address] Performed By: #### 2 4356-8 ####[facility] [id number] [place] [address] [place] XR CHEST 1V FRONTAL PORTon 0 04-08-2024 XR CHEST 1V FRONTAL PORT Normal [facility] ALLIED HEALTHon 04-07-2024 ALLIED HEALTH Normal [facility] CASE MGT INIT ASSESon 2023 CASE MGT INIT ASSES Normal [place] CBC W Auto Differential pane l (Bld)on 04-07-2024 Basophils (Bld) [#/Vol] 10*3/uL Normal <0.11 [facility] Comment on above: Order Comment: Speci men Type: BLOOD SPECIMENOrdering Facility: [facility] Address: [address] [place] [address] Performed By: #### 5 7021-8 ####[facility] [id number] [place] [address] [place] Basophils/100 WBC (Bld) 0.0 % Normal [facility] Comment on above: Order Comment: Speci men Type: BLOOD SPECIMENOrdering Facility: [facility] Address: [address] [place] [address] Performed By: #### 5 7021-8 ####[facility] [id number] [place] [address] [place] Differential cell count method Nom (Bld) Auto Normal [facility] Comment on above: Order Comment: Speci men Type: BLOOD SPECIMENOrdering Facility: [facility] Address: [address] [place] [address] Performed By: #### 5 7021-8 ####[facility] [id number] [place] [address] [place] Eosinophils (Bld) [#/Vol] 0.06 10*3/uL Normal <0.46 [facility] Comment on above: Order Comment: Speci men Type: BLOOD SPECIMENOrdering Facility: [facility] Address: [address] [place] [address] Performed By: #### 5 7021-8 ####[facility] [id number] [place] [address] [place] Eosinophils/100 WBC (Bld) 2.1 % Normal [facility] Comment on above: Order Comment: Speci men Type: BLOOD SPECIMENOrdering Facility: [facility] Address: [address] [place] [address] Performed By: #### 5 7021-8 ####[facility] [id number] [place] [address] [place] Erythrocyte distribution width (RBC) [Ratio] 13.5 % Normal 11.5-15.0 [facility] Comment on above: Order Comment: Speci men Type: BLOOD SPECIMENOrdering Facility: [facility] Address: [address] [place] [address] Performed By: #### 5 7021-8 ####[facility] [id number] [place] [address] [place] Hematocrit (Bld) [Volume fraction] 35.4 % Low 39.0-51.0 [facility] Comment on above: Order Comment: Speci men Type: BLOOD SPECIMENOrdering Facility: [facility] Address: [address] [place] [address] Performed By: #### 5 7021-8 ####[facility] [id number] [place] [address] [place] Hemoglobin (Bld) [Mass/Vol] 12.0 g/dL Low 13.0-17.0 [facility] Comment on above: Order Comment: Speci men Type: BLOOD SPECIMENOrdering Facility: [facility] Address: [address] [place] [address] Performed By: #### 5 7021-8 ####[facility] [id number] [place] [address] [place] Immature granulocytes (Bld) [#/Vol] 10*3/uL Normal <0.10 [facility] Comment on above: Order Comment: Speci men Type: BLOOD SPECIMENOrdering Facility: [facility] Address: [address] [place] [address] Performed By: #### 5 7021-8 ####[facility] [id number] [place] [address] [place] Immature granulocytes/100 WBC (Bld) 0.7 % Normal [facility] Comment on above: Order Comment: Speci men Type: BLOOD SPECIMENOrdering Facility: [facility] Address: [address] [place] [address] Performed By: #### 5 7021-8 ####[facility] [id number] [place] [address] [place] Lymphocytes (Bld) [#/Vol] 10*3/uL Low 1.00-4.00 [facility] Comment on above: Order Comment: Speci men Type: BLOOD SPECIMENOrdering Facility: [facility] Address: [address] [place] [address] Performed By: #### 5 7021-8 ####[facility] [id number] [place] [address] [place] Lymphocytes/100 WBC (Bld) 0.3 % Normal [facility] Comment on above: Order Comment: Speci men Type: BLOOD SPECIMENOrdering Facility: [facility] Address: [address] [place] [address] Performed By: #### 5 7021-8 ####[facility] [id number] [place] [address] [place] MCH (RBC) [Entitic mass] 31.3 pg Normal 26.0-34.0 [facility] Comment on above: Order Comment: Speci men Type: BLOOD SPECIMENOrdering Facility: [facility] Address: [address] [place] [address] Performed By: #### 5 7021-8 ####[facility] [id number] [place] [address] [place] MCHC (RBC) [Mass/Vol] 33.9 g/dL Normal 30.5-36.0 [facility] Comment on above: Order Comment: Speci men Type: BLOOD SPECIMENOrdering Facility: [facility] Address: [address] [place] [address] Performed By: #### 5 7021-8 ####[facility] [id number] [place] [address] [place] MCV (RBC) [Entitic vol] 92.2 fL Normal 80.0-100.0 [facility] Comment on above: Order Comment: Speci men Type: BLOOD SPECIMENOrdering Facility: [facility] Address: [address] [place] [address] Performed By: #### 5 7021-8 ####[facility] [id number] [place] [address] [place] Monocytes (Bld) [#/Vol] 10*3/uL Normal <0.87 [facility] Comment on above: Order Comment: Speci men Type: BLOOD SPECIMENOrdering Facility: [facility] Address: [address] [place] [address] Performed By: #### 5 7021-8 ####[facility] [id number] [place] [address] [place] Monocytes/100 WBC (Bld) 0.3 % Normal [facility] Comment on above: Order Comment: Speci men Type: BLOOD SPECIMENOrdering Facility: [facility] Address: [address] [place] [address] Performed By: #### 5 7021-8 ####[facility] [id number] [place] [address] [place] Neutrophils (Bld) [#/Vol] 2.82 10*3/uL Normal 1.45-7.50 [facility] Comment on above: Order Comment: Speci men Type: BLOOD SPECIMENOrdering Facility: [facility] Address: [address] [place] [address] Performed By: #### 5 7021-8 ####[facility] [id number] [place] [address] [place] Neutrophils/100 WBC (Bld) 96.6 % Normal [facility] Comment on above: Order Comment: Speci men Type: BLOOD SPECIMENOrdering Facility: [facility] Address: [address] [place] [address] Performed By: #### 5 7021-8 ####[facility] [id number] [place] [address] [place] Nucleated RBC (Bld) [#/Vol] 10*3/uL Normal <0.01 [facility] Comment on above: Order Comment: Speci men Type: BLOOD SPECIMENOrdering Facility: [facility] Address: [address] [place] [address] Performed By: #### 5 7021-8 ####[facility] [id number] [place] [address] [place] Nucleated RBC/100 WBC (Bld) [Ratio] 0.0 /100 WBC Normal [facility] Comment on above: Order Comment: Speci men Type: BLOOD SPECIMENOrdering Facility: [facility] Address: [address] [place] [address] Performed By: #### 5 7021-8 ####[facility] [id number] [place] [address] [place] Platelet mean volume (Bld) [Entitic vol] 9.7 fL Normal 9.0-12.7 [facility] Comment on above: Order Comment: Speci men Type: BLOOD SPECIMENOrdering Facility: [facility] Address: [address] [place] [address] Performed By: #### 5 7021-8 ####[facility] [id number] [place] [address] [place] Platelets (Bld) [#/Vol] 116 10*3/uL Low 150-400 [facility] Comment on above: Order Comment: Speci men Type: BLOOD SPECIMENOrdering Facility: [facility] Address: [address] [place] [address] Performed By: #### 5 7021-8 ####[facility] [id number] [place] [address] [place] RBC (Bld) [#/Vol] 3.84 10*6/uL Low 4.20-6.00 [place] Comment on above: Order Comment: Speci men Type: BLOOD SPECIMENOrdering Facility: [facility] Address: [address] [place] [address] Performed By: #### 5 7021-8 ####[facility] [id number] [place] [address] [place] WBC (Bld) [#/Vol] 2.92 10*3/uL Low 3.70-11.00 [place] Comment on above: Order Comment: Speci men Type: BLOOD SPECIMENOrdering Facility: [facility] Address: [address] [place] [address] Performed By: #### 5 7021-8 ####[facility] [id number] [place] [address] [place] CRP SerPl-mCncon 04-07-2024 CRP [Mass/Vol] 1.2 mg/dL High <0.9 [facility] Comment on above: Order Comment: Speci men Type: BLOOD SPECIMENOrdering Facility: [facility] Address: [address] [place] [address] Performed By: #### 1 988-5, 88539-0, 3084-1, 2777-1, 2276-4 ####[facility] [id number] [place] [address] [place] Comprehensive metabolic 2000 panelon 04-07-2024 Albumin [Mass/Vol] 3.7 g/dL Low 3.9-4.9 [facility] Comment on above: Order Comment: Speci men Type: BLOOD SPECIMENOrdering Facility: [facility] Address: [address] [place] [address] Performed By: #### 2 4323-8, 2532-0 ####[facility] [id number] [place] [address] [place] ALP [Catalytic activity/Vol] 184 U/L High 38-113 [facility] Comment on above: Order Comment: Speci men Type: BLOOD SPECIMENOrdering Facility: [facility] Address: [address] [place] [address] Performed By: #### 2 4323-8, 2532-0 ####[facility] [id number] [place] [address] [place] ALT [Catalytic activity/Vol] 14 U/L Normal 10-54 [facility] Comment on above: Order Comment: Speci men Type: BLOOD SPECIMENOrdering Facility: [facility] Address: [address] [place] [address] Performed By: #### 2 432-8, 2531-0 ####[facility] [id number] [place] [address] [place] Anion gap [Moles/Vol] 12 mmol/L Normal 8-15 [facility] Comment on above: Order Comment: Speci men Type: BLOOD SPECIMENOrdering Facility: [facility] Address: [address] [place] [address] Performed By: #### 2 4328, 2531-0 ####[facility] [id number] [place] [address] [place] AST [Catalytic activity/Vol] 17 U/L Normal 14-40 [facility] Comment on above: Order Comment: Speci men Type: BLOOD SPECIMENOrdering Facility: [facility] Address: [address] [place] [address] Performed By: #### 2 4328, 2531-0 ####[facility] [id number] [place] [address] [place] Bilirubin [Mass/Vol] 0.3 mg/dL Normal 0.2-1.3 [facility] Comment on above: Order Comment: Speci men Type: BLOOD SPECIMENOrdering Facility: [facility] Address: [address] [place] [address] Performed By: #### 2 4328, 2531-0 ####[facility]CL[facility] [id number] [place] [id number] [place] Calcium [Mass/Vol] 8.9 mg/dL Normal 8.5-10.2 [facility] Comment on above: Order Comment: Speci men Type: BLOOD SPECIMENOrdering Facility: [facility] Address: [address] [place] [address] Performed By: #### 2 4328, 2531-0 ####[facility] [id number] [place] [address] [place] Chloride [Moles/Vol] 107 mmol/L Normal 98-107 [facility] Comment on above: Order Comment: Speci men Type: BLOOD SPECIMENOrdering Facility: [facility] Address: [address] [place] [address] Performed By: #### 2 4323-8, 2532-0 ####[facility] [id number] [place] [address] [place] CO2 [Moles/Vol] 22 mmol/L Normal 22-30 [facility] Comment on above: Order Comment: Speci men Type: BLOOD SPECIMENOrdering Facility: [facility] Address: [address] [place] [address] Performed By: #### 2 4323-8, 2532-0 ####[facility] [id number] [place] [address] [place] Creatinine [Mass/Vol] 0.95 mg/dL Normal 0.73-1.22 [facility] Comment on above: Order Comment: Speci men Type: BLOOD SPECIMENOrdering Facility: [facility] Address: [address] [place] [address] Performed By: #### 2 4323-8, 2532-0 ####[facility] [id number] [place] [address] [place] Creatinine and Glomerular filtration rate.predicted panel (S/P/Bld) 88 mL/min/1.73m??? Normal >=60 [facility] Comment on above: Order Comment: Speci men Type: BLOOD SPECIMENOrdering Facility: [facility] Address: [address] [place] [address] Result Comment: Carol mated Glomerular Filtration Rate [...] actual GFR. Performed By: #### 2 4323-8, ####[facility] [id number] [address] [address] [place] Glucose [Mass/Vol] 77 mg/dL Normal 74-99 [facility] Comment on above: Order Comment: Sara randle Type: BLOOD SPECIMENOrdering Facility: [facility] Address: [address] [place] [address] Result Comment: The [place] [employer] (ADA) provides guidance for cutoff [...] Standards of Medical Care in Diabetes 2016, [place] [employer]. Diabetes Care. 2016.39(Suppl 1). Performed By: #### 2 4328, ####[facility] [id number] [place] [id number] [place] Potassium [Moles/Vol] 4.1 mmol/L Normal 3.7-5.1 [facility] Comment on above: Order Comment: Sara randle Type: BLOOD SPECIMENOrdering Facility: [facility] Address: [address] [place] [address] Performed By: #### 2 4328, ####[facility] [id number] [address] [address] [place] Protein [Mass/Vol] 5.9 g/dL Low 6.3-8.0 [facility] Comment on above: Order Comment: Speci men Type: BLOOD SPECIMENOrdering Facility: [facility] Address: [address] [place] [address] Performed By: #### 2 4323-8, 2532-0 ####[facility] [id number] [place] [address] [place] Sodium [Moles/Vol] 141 mmol/L Normal 136-144 [facility] Comment on above: Order Comment: Speci men Type: BLOOD SPECIMENOrdering Facility: [facility] Address: [address] [place] [address] Performed By: #### 2 4323-8, 2532-0 ####[facility] [id number] [place] [address] [place] Urea nitrogen [Mass/Vol] 16 mg/dL Normal 9-24 [facility] Comment on above: Order Comment: Speci men Type: BLOOD SPECIMENOrdering Facility: [facility] Address: [address] [place] [address] Performed By: #### 2 4323-8, 2532-0 ####[facility] [id number] [place] [address] [place] Ferritin SerPl-mCncon 2023 Ferritin [Mass/Vol] 370.0 ng/mL Normal 30.3-565.7 [facility] Comment on above: Order Comment: Speci men Type: BLOOD SPECIMENOrdering Facility: [facility] Address: [address] [place] [address] Performed By: #### 1 988-5, 40053-0, 3084-1, 2777-1, 2276-4 ####[facility] [id number] [place] [address] [place] LDH SerPl-cCncon 04-07-2024 LDH [Catalytic activity/Vol] 182 U/L Normal 135-225 [facility] Comment on above: Order Comment: Speci men Type: BLOOD SPECIMENOrdering Facility: [facility] Address: [address] [place], [place] [address] Performed By: #### 2 4323-8, 2532-0 ####[facility] [id number] [place] [address] [place] MEDICAL EMERon 04-07-2024 MEDICAL FILOMENA Normal [facility] Magnesium SerPl-mCncon 04-07 Magnesium [Mass/Vol] 2.1 mg/dL Normal 1.7-2.3 [facility] Comment on above: Order Comment: Speci men Type: BLOOD SPECIMENOrdering Facility: [facility] Address: [address] [place] [address] Performed By: #### 1 988-5, 14219-8, 3084-1, 2777-1, 2276-4 ####[facility] [id number] [place] [address] [place] NURSING PROGon 04-07-2024 NURSING PROG Normal [facility] NUTRITIONon 04-07-2024 NUTRITION Normal [facility] PT EDon 04-07-2024 PT ED Normal [facility] Phosphate SerPl-mCncon 04-07 Phosphate [Mass/Vol] 3.2 mg/dL Normal 2.7-4.8 [facility] Comment on above: Order Comment: Speci men Type: BLOOD SPECIMENOrdering Facility: [facility] Address: [address] [place], [place] [address] Performed By: #### 1 988-5, 51200-6, 3084-1, 2777-1, 2276-4 ####[facility] [id number] [place] [id number] [place] US LEG VEIN DVT [facility] n 04-07-2024 US LE[facility] Normal [facility] Urate SerPl-mCncon Urate [Mass/Vol] 3.8 mg/dL Low 4.0-8.1 [facility] Comment on above: Order Comment: Speci men Type: BLOOD SPECIMENOrdering Facility: [facility] Address: [address] [place] [address] Performed By: #### 1 988-5, 85404-2, 3084-1, 2777-1, 2276-4 ####[facility] [id number] [place] [address] [place] CBC W Auto Differential pane l (Bld)on 04-06-2024 Basophils (Bld) [#/Vol] 10*3/uL Normal <0.11 [facility] Comment on above: Order Comment: Speci men Type: BLOOD SPECIMENOrdering Facility: [facility] Address: [address] [place] [address] Performed By: #### 5 7021-8 ####[facility] [id number] [place] [address] [place] Basophils/100 WBC (Bld) 0.5 % Normal [facility] Comment on above: Order Comment: Speci men Type: BLOOD SPECIMENOrdering Facility: [facility] Address: [address] [place] [address] Performed By: #### 5 7021-8 ####[facility] [id number] [place] [address] [place] Differential cell count method Nom (Bld) Auto Normal [facility] Comment on above: Order Comment: Speci men Type: BLOOD SPECIMENOrdering Facility: [facility] Address: [address] [place] [address] Performed By: #### 5 7021-8 ####[facility] [id number] [place] [address] [place] Eosinophils (Bld) [#/Vol] 0.06 10*3/uL Normal <0.46 [facility] Comment on above: Order Comment: Speci men Type: BLOOD SPECIMENOrdering Facility: [facility] Address: [address] [place] [address] Performed By: #### 5 7021-8 ####[facility] [id number] [place] [address] [place] Eosinophils/100 WBC (Bld) 2.7 % Normal [facility] Comment on above: Order Comment: Speci men Type: BLOOD SPECIMENOrdering Facility: [facility] Address: [address] [place] [address] Performed By: #### 5 7021-8 ####[facility] [id number] [place] [address] [place] Erythrocyte distribution width (RBC) [Ratio] 13.4 % Normal 11.5-15.0 [facility] Comment on above: Order Comment: Speci men Type: BLOOD SPECIMENOrdering Facility: [facility] Address: [address] [place] [address] Performed By: #### 5 7021-8 ####[facility] [id number] [place] [address] [place] Hematocrit (Bld) [Volume fraction] 37.3 % Low 39.0-51.0 [facility] Comment on above: Order Comment: Speci men Type: BLOOD SPECIMENOrdering Facility: [facility] Address: [address] [place] [address] Performed By: #### 5 7021-8 ####[facility] [id number] [place] [address] [place] Hemoglobin (Bld) [Mass/Vol] 12.6 g/dL Low 13.0-17.0 [facility] Comment on above: Order Comment: Speci men Type: BLOOD SPECIMENOrdering Facility: [facility] Address: [address] [place] [address] Performed By: #### 5 7021-8 ####[facility] [id number] [place] [address] [place] Immature granulocytes (Bld) [#/Vol] 10*3/uL Normal <0.10 [facility] Comment on above: Order Comment: Speci men Type: BLOOD SPECIMENOrdering Facility: [facility] Address: [address] [place] [address] Performed By: #### 5 7021-8 ####[facility] [id number] [place] [address] [place] Immature granulocytes/100 WBC (Bld) 0.5 % Normal [facility] Comment on above: Order Comment: Speci men Type: BLOOD SPECIMENOrdering Facility: [facility] Address: [address] [place] [address] Performed By: #### 5 7021-8 ####[facility] [id number] [place] [address] [place] Lymphocytes (Bld) [#/Vol] 10*3/uL Low 1.00-4.00 [facility] Comment on above: Order Comment: Speci men Type: BLOOD SPECIMENOrdering Facility: [facility] Address: [address] [place] [address] Performed By: #### 5 7021-8 ####[facility] [id number] [place] [address] [place] Lymphocytes/100 WBC (Bld) 0.5 % Normal [facility] Comment on above: Order Comment: Speci men Type: BLOOD SPECIMENOrdering Facility: [facility] Address: [address] [place] [address] Performed By: #### 5 7021-8 ####[facility] [id number] [place] [address] [place] MCH (RBC) [Entitic mass] 30.4 pg Normal 26.0-34.0 [facility] Comment on above: Order Comment: Speci men Type: BLOOD SPECIMENOrdering Facility: [facility] Address: [address] [place] [address] Performed By: #### 5 7021-8 ####[facility] [id number] [place] [address] [place] MCHC (RBC) [Mass/Vol] 33.8 g/dL Normal 30.5-36.0 [facility] Comment on above: Order Comment: Speci men Type: BLOOD SPECIMENOrdering Facility: [facility] Address: [address] [place] [address] Performed By: #### 5 7021-8 ####[facility] [id number] [place] [address] [place] MCV (RBC) [Entitic vol] 90.1 fL Normal 80.0-100.0 [facility] Comment on above: Order Comment: Speci men Type: BLOOD SPECIMENOrdering Facility: [facility] Address: [address] [place] [address] Performed By: #### 5 7021-8 ####[facility] LABCLIA [id number] [place] [address] [place] Monocytes (Bld) [#/Vol] 10*3/uL Normal <0.87 [facility] Comment on above: Order Comment: Speci men Type: BLOOD SPECIMENOrdering Facility: [facility] Address: [address] [place] [address] Performed By: #### 5 7021-8 ####[facility] LABCLIA [id number] [place] [address] [place] Monocytes/100 WBC (Bld) 0.9 % Normal [facility] Comment on above: Order Comment: Speci men Type: BLOOD SPECIMENOrdering Facility: [facility] Address: [address] [place] [address] Performed By: #### 5 7021-8 ####[facility] LABCLIA [id number] [place] [address] [place] Neutrophils (Bld) [#/Vol] 2.11 10*3/uL Normal 1.45-7.50 [facility] Comment on above: Order Comment: Speci men Type: BLOOD SPECIMENOrdering Facility: [facility] Address: [address] [place] [address] Performed By: #### 5 7021-8 ####[facility]CL[facility] [id number] [place] [address] [place] Neutrophils/100 WBC (Bld) 94.9 % Normal [facility] Comment on above: Order Comment: Speci men Type: BLOOD SPECIMENOrdering Facility: [facility] Address: [address] [place] [address] Performed By: #### 5 7021-8 ####[facility]CL[facility] [id number] [place] [address] [place] Nucleated RBC (Bld) [#/Vol] 10*3/uL Normal <0.01 [facility] Comment on above: Order Comment: Speci men Type: BLOOD SPECIMENOrdering Facility: [facility] Address: [address] [place] [address] Performed By: #### 5 7021-8 ####[facility]CL[facility] [id number] [place] [address] [place] Nucleated RBC/100 WBC (Bld) [Ratio] 0.0 /100 WBC Normal [facility] Comment on above: Order Comment: Speci men Type: BLOOD SPECIMENOrdering Facility: [facility] Address: [address] [place] [address] Performed By: #### 5 7021-8 ####[facility] [id number] [place] [address] [place] Platelet mean volume (Bld) [Entitic vol] 9.6 fL Normal 9.0-12.7 [facility] Comment on above: Order Comment: Speci men Type: BLOOD SPECIMENOrdering Facility: [facility] Address: [address] [place] [address] Performed By: #### 5 7021-8 ####[facility]CL[facility] [id number] [place] [address] [place] Platelets (Bld) [#/Vol] 118 10*3/uL Low 150-400 [facility] Comment on above: Order Comment: Speci men Type: BLOOD SPECIMENOrdering Facility: [facility] Address: [address] [place] [address] Performed By: #### 5 7021-8 ####[facility] LABIA [id number] [place] [address] [place] RBC (Bld) [#/Vol] 4.14 10*6/uL Low 4.20-6.00 [place] Comment on above: Order Comment: Speci men Type: BLOOD SPECIMENOrdering Facility: [facility] Address: [address] [place] [address] Performed By: #### 5 7021-8 ####[facility] LABIA [id number] [place] [address] [place] WBC (Bld) [#/Vol] 2.22 10*3/uL Low 3.70-11.00 [place] Comment on above: Order Comment: Speci men Type: BLOOD SPECIMENOrdering Facility: [facility] Address: [address] [place] [address] Performed By: #### 5 7021-8 ####[facility] LABIA [id number] [place] [address] [place] CRP SerPl-mCncon 04-06-2024 CRP [Mass/Vol] 1.7 mg/dL High <0.9 [facility] Comment on above: Order Comment: Speci men Type: BLOOD SPECIMENOrdering Facility: [facility] Address: [address] [place] [address] Performed By: #### 1 988-5, 24647-6, 2777-1, 3084-1, 2276-4 ####[facility]CL[facility] [id number] [place] [address] [place] Comprehensive metabolic 2000 panelon 04-06-2024 Albumin [Mass/Vol] 4.0 g/dL Normal 3.9-4.9 [facility] Comment on above: Order Comment: Speci men Type: BLOOD SPECIMENOrdering Facility: [facility] Address: [address] [place] [address] Performed By: #### 2 4323-8, 2532-0 ####[facility]CL[facility] [id number] [place] [address] [place] ALP [Catalytic activity/Vol] 174 U/L High 38-113 [facility] Comment on above: Order Comment: Speci men Type: BLOOD SPECIMENOrdering Facility: [facility] Address: [address] [place] [address] Performed By: #### 2 4323-8, 2532-0 ####[facility] LABIA [id number] [address] [place] ALT [Catalytic activity/Vol] 18 U/L Normal 10-54 [facility] Comment on above: Order Comment: Speci men Type: BLOOD SPECIMENOrdering Facility: [facility] Address: [address] [place] [address] Performed By: #### 2 4323-8, 2532-0 ####[facility] LABIA [id number] [place] [address] [place] Anion gap [Moles/Vol] 11 mmol/L Normal 8-15 [facility] Comment on above: Order Comment: Speci men Type: BLOOD SPECIMENOrdering Facility: [facility] Address: [address] [place] [address] Performed By: #### 2 432-8, 0 ####[facility]CL[facility] [id number] [place] [address] [place] AST [Catalytic activity/Vol] 19 U/L Normal 14-40 [facility] Comment on above: Order Comment: Speci men Type: BLOOD SPECIMENOrdering Facility: [facility] Address: [address] [place] [address] Performed By: #### 2 4328, 0 ####[facility]CL[facility] [id number] [place] [address] [place] Bilirubin [Mass/Vol] 0.4 mg/dL Normal 0.2-1.3 [facility] Comment on above: Order Comment: Speci men Type: BLOOD SPECIMENOrdering Facility: [facility] Address: [address] [place] [address] Performed By: #### 2 4328, 0 ####[facility] LABIA [id number] [place] [address] [place] Calcium [Mass/Vol] 8.9 mg/dL Normal 8.5-10.2 [facility] Comment on above: Order Comment: Speci men Type: BLOOD SPECIMENOrdering Facility: [facility] Address: [address] [place] [address] Performed By: #### 2 4328, 0 ####[facility] LABIA [id number] [place] [id number] [place] Chloride [Moles/Vol] 106 mmol/L Normal 98-107 [facility] Comment on above: Order Comment: Speci men Type: BLOOD SPECIMENOrdering Facility: [facility] Address: [address] [place], [place] [address] Performed By: #### 2 4323-8, 2531-0 ####[facility] LABIA [id number] [address] [address] [place] CO2 [Moles/Vol] 25 mmol/L Normal 22-30 [facility] Comment on above: Order Comment: Dottyi men Type: BLOOD SPECIMENOrdering Facility: [facility] Address: [address] [place] [address] Performed By: #### 2 4323-8, 2532-0 ####[facility]CL[facility] [id number] [place] [address] [place] Creatinine [Mass/Vol] 0.92 mg/dL Normal 0.73-1.22 [facility] Comment on above: Order Comment: Dottyi men Type: BLOOD SPECIMENOrdering Facility: [facility] Address: [address] [place] [address] Performed By: #### 2 4323-8, 2531-0 ####[facility]CL[facility] [id number] [place] [address] [place] Creatinine and Glomerular filtration rate.predicted panel (S/P/Bld) 91 mL/min/1.73m??? Normal >=60 [facility] Comment on above: Order Comment: Sara randle Type: BLOOD SPECIMENOrdering Facility: [facility] Address: [address] [place] [address] Result Comment: Carol mated Glomerular Filtration Rate [...] actual GFR. Performed By: #### 2 4323-8, 2532-0 ####[facility]CLIA [id number] [place] [address] [place] Glucose [Mass/Vol] 114 mg/dL High 74-99 [facility] Comment on above: Order Comment: Dottyi men Type: BLOOD SPECIMENOrdering Facility: [facility] Address: [address] [place] [id number] Result Comment: The [place] [employer] (ADA) provides guidance for cutoff [...] Standards of Medical Care in Diabetes 2016, [place] [employer]. Diabetes Care. 2016.39(Suppl 1). Performed By: #### 2 4323-8, ####[facility]CLIA [id number] [place] [address] [place] Potassium [Moles/Vol] 4.1 mmol/L Normal 3.7-5.1 [facility] Comment on above: Order Comment: Speci men Type: BLOOD SPECIMENOrdering Facility: [facility] Address: [address] [place] [address] Performed By: #### 2 4323-8, ####[facility] LABIA [id number] [place] [address] [place] Protein [Mass/Vol] 6.4 g/dL Normal 6.3-8.0 [facility] Comment on above: Order Comment: Speci men Type: BLOOD SPECIMENOrdering Facility: [facility] Address: [address] [place] [id number] Performed By: #### 2 4323-8, ####[facility] LABCLIA [id number] [place] [id number] [place] Sodium [Moles/Vol] 142 mmol/L Normal 136-144 [facility] Comment on above: Order Comment: Speci men Type: BLOOD SPECIMENOrdering Facility: [facility] Address: [address] [place], [place] [address] Performed By: #### 2 4323-8, 2532-0 ####[facility]CLIA [id number] [place] [address] [place] Urea nitrogen [Mass/Vol] 16 mg/dL Normal 9-24 [facility] Comment on above: Order Comment: Speci men Type: BLOOD SPECIMENOrdering Facility: [facility] Address: [address] [place] [address] Performed By: #### 2 4323-8, 2532-0 ####[facility] LABIA [id number] [place] [address] [place] D dimer FEU PPP-mCncon 04-06 Fibrin D-dimer FEU (PPP) [Mass/Vol] 700 ng/mL FEU High <500 [facility] Comment on above: Order Comment: Speci men Type: BLOOD SPECIMENOrdering Facility: [facility] Address: [address] [place] [address] Performed By: #### 4 8065-7, 3255-7, 46176-4 ####[facility] LABIA [id number] [place] [address] [place] Ferritin SerPl-mCncon 2023 Ferritin [Mass/Vol] 408.0 ng/mL Normal 30.3-565.7 [facility] Comment on above: Order Comment: Speci men Type: BLOOD SPECIMENOrdering Facility: [facility] Address: [address] [place] [address] Performed By: #### 1 988-5, 90653-8, 2777-1, 3084-1, 2276-4 ####[facility]CLIA [id number] [place] [address] [place] Fibrin D-dimer FEU (PPP) [Ma ss/Vol]on 04-06-2024 D DIMER AGE-RELATED CUTOFF 670 ng/mL FEU Normal [facility] Comment on above: Order Comment: Speci men Type: BLOOD SPECIMENOrdering Facility: [facility] Address: [address] [place] [address] Performed By: #### 4 8065-7, 3255-7, 39678-2 ####[facility] LABCLIA [id number] [place] [address] [place] Fibrinogen PPP-mCncon 2023 Fibrinogen Coag (PPP) [Mass/Vol] 385 mg/dL Normal 200-400 [facility] Comment on above: Order Comment: Speci men Type: BLOOD SPECIMENOrdering Facility: [facility] Address: [address] [place] [address] Performed By: #### 4 8065-7, 3255-7, 78061-5 ####[facility] LABCLIA [id number] [place] [address] [place] HISTORY PHYSICALon HISTORY PHYSICAL Normal [facility] HPC INFUSIONon 04-06-2024 INFUSION DATE 04/06/2024 Normal [facility] Comment on above: Order Comment: Speci men Type: SPECIMEN FROM BLOOD PRODUCTOrdering Facility: [facility] Address: [address] [place] [address] Performed By: #### H PCING ####[facility]CLIA [id number] [place] [address] [place] PRODUCT ID [id number] Normal [facility] Comment on above: Order Comment: Speci men Type: SPECIMEN FROM BLOOD PRODUCTOrdering Facility: [facility] Address: [address] [place] [address] Performed By: #### H PCING ####[facility]CLIA [id number] [place] [id number] [place] PRODUCT TYPE Yescarta Normal [facility] Comment on above: Order Comment: Speci men Type: SPECIMEN FROM BLOOD PRODUCTOrdering Facility: [facility] Address: [address] [place] [address] Performed By: #### H PCING ####[facility]CLIA [id number] [place] [address] [place] LDH SerPl-cCncon 04-06-2024 LDH [Catalytic activity/Vol] 180 U/L Normal 135-225 [facility] Comment on above: Order Comment: Speci men Type: BLOOD SPECIMENOrdering Facility: [facility] Address: [address] [place] [address] Performed By: #### 2 4323-8, 2532-0 ####[facility]CLIA [id number] [place] [address] [place] Magnesium SerPl-mCncon 04-06 Magnesium [Mass/Vol] 2.2 mg/dL Normal 1.7-2.3 [facility] Comment on above: Order Comment: Speci men Type: BLOOD SPECIMENOrdering Facility: [facility] Address: [address] [place] [address] Performed By: #### 1 988-5, 97687-0, 2777-1, 3084-1, 2276-4 ####[facility]CLIA [id number] [place] [address] [place] NURSING PROGon 04-06-2024 NURSING PROG Normal [facility] PT panel Coag (PPP)on 2023 INR Coag (PPP) [Relative time] 1.1 {INR} Normal 0.9-1.3 [facility] Comment on above: Order Comment: Speci men Type: BLOOD SPECIMENOrdering Facility: [facility] Address: [address] [place] [address] Result Comment: Anca min K Antagonist (VKA) Therapeutic Range: INR 2 to 3 (Target INR of 2.5)Note: For patients treated with VKA drugs, such as warfarin, the [place] [employer] 2012 Guideline recommends [...] 2.5 to 3.5 (target INR of 3).Mike GH, et al. Chest 2012, 141:7S-47SNishthania RA, et al. [facility] 2017, 70: 252-289 Performed By: #### 3 4528-0 ####[facility] [id number] [place] [address] [place] PT Coag (PPP) [Time] 11.4 s Normal 9.7-13.0 [facility] Comment on above: Order Comment: Speci men Type: BLOOD SPECIMENOrdering Facility: [facility] Address: [address] [place] [address] Performed By: #### 3 4528-0 ####[facility] [id number] [place] [address] [place] Phosphate SerPl-mCncon 04-06 Phosphate [Mass/Vol] 3.3 mg/dL Normal 2.7-4.8 [facility] Comment on above: Order Comment: Speci men Type: BLOOD SPECIMENOrdering Facility: [facility] Address: [address] [place] [address] Performed By: #### 1 988-5, 96810-2, 2777-1, 3084-1, 2276-4 ####[facility] [id number] [place] [address] [place] TYPE + SCREENon 04-06-2024 ABO B Normal [facility] Comment on above: Order Comment: Speci men Type: BLOOD SPECIMENOrdering Facility: [facility] Address: [address] [place] [address] Performed By: #### T SCR ####[facility] BANKCLIA [id number] [address] [place] HISTORICAL AB SCR STATUS Negative Normal [facility] Comment on above: Order Comment: Speci men Type: BLOOD SPECIMENOrdering Facility: [facility] Address: [address] [place] [address] Performed By: #### T SCR ####[facility] BANKCLIA [id number] [place] [address] [place] Rh Nom (Bld) Negative Normal [facility] Comment on above: Order Comment: Speci men Type: BLOOD SPECIMENOrdering Facility: [facility] Address: [address] [place] [address] Performed By: #### T SCR ####[facility] BANKCLIA [id number] [address] [place] TYPE AND SCREEN EXPIRATION 04/09/2024 23:59 Normal [facility] Comment on above: Order Comment: Speci men Type: BLOOD SPECIMENOrdering Facility: [facility] Address: [address] [place] [address] Performed By: #### T SCR ####[facility]LO[facility] BANKCLIA [id number] [place] [address] [place] Urate SerPl-mCncon 4 Urate [Mass/Vol] 4.9 mg/dL Normal 4.0-8.1 [facility] Comment on above: Order Comment: Speci men Type: BLOOD SPECIMENOrdering Facility: [facility] Address: [address] [place] [address] Performed By: #### 1 988-5, 46033-5, 2777-1, 3084-1, 2276-4 ####[facility]CLIA [id number] [address] [place] aPTT PPPon 04-06-2024 aPTT Coag (PPP) [Time] 31.6 s Normal 23.0-32.4 [facility] Comment on above: Order Comment: Speci men Type: BLOOD SPECIMENOrdering Facility: [facility] Address: [address] [place] [address] Performed By: #### 4 8065-7, 3255-7, 09688-2 ####[facility]CLIA [id number] [place] [address] [place] CBC W Auto Differential pane l (Bld)on 04-01-2024 Basophils (Bld) [#/Vol] 0.05 10*3/uL [facility] Basophils/100 WBC (Bld) 1.0 % [facility] Differential cell count method Nom (Bld) Auto [facility] Eosinophils (Bld) [#/Vol] 0.29 10*3/uL [facility] Eosinophils/100 WBC (Bld) 5.9 % [facility] Erythrocyte distribution width (RBC) [Ratio] 13.8 % 11.5 - 15.0 % [facility] Hematocrit (Bld) [Volume fraction] 39.4 % 39.0 - 51.0 % [facility] Hemoglobin (Bld) [Mass/Vol] 13.5 g/dL 13.0 - 17.0 g/dL [facility] Immature granulocytes (Bld) [#/Vol] [facility] Immature granulocytes/100 WBC (Bld) 0.4 % [facility] Interpretation and review of laboratory results Abnormal [facility] Lymphocytes (Bld) [#/Vol] 0.35 10*3/uL Low [facility] Lymphocytes/100 WBC (Bld) 7.2 % [facility] MCH (RBC) [Entitic mass] 31.8 pg 26.0 - 34.0 pg [facility] MCHC (RBC) [Mass/Vol] 34.3 g/dL 30.5 - 36.0 g/dL [facility] MCV (RBC) [Entitic vol] 92.9 fL 80.0 - 100.0 fL [facility] Monocytes (Bld) [#/Vol] 0.95 10*3/uL High [facility] Monocytes/100 WBC (Bld) 19.5 % [facility] Neutrophils (Bld) [#/Vol] 3.22 10*3/uL [facility] Neutrophils/100 WBC (Bld) 66.0 % [facility] Nucleated RBC (Bld) [#/Vol] NINF [facility] Nucleated RBC/100 WBC (Bld) [Ratio] 0.0 % /100 WBC [facility] Platelet mean volume (Bld) [Entitic vol] 9.9 fL 9.0 - 12.7 fL [facility] Platelets (Bld) [#/Vol] 156 10*3/uL [facility] RBC (Bld) [#/Vol] 4.24 10*6/uL 4.20 - 6.00 m/uL [facility] WBC (Bld) [#/Vol] 4.88 10*3/uL [facility] Basophils (Bld) [#/Vol] 0.05 10*3/uL Normal <0.11 [facility] Comment on above: Order Comment: Speci men Type: BLOOD SPECIMENOrdering Facility: [facility] Address: [address] [place] [address] Performed By: #### 5 7021-8 ####[facility] [id number] [place] [address] [place] Basophils/100 WBC (Bld) 1.0 % Normal [facility] Comment on above: Order Comment: Speci men Type: BLOOD SPECIMENOrdering Facility: [facility] Address: [address] [place] [address] Performed By: #### 5 7021-8 ####[facility] [id number] [place] [address] [place] Differential cell count method Nom (Bld) Auto Normal [facility] Comment on above: Order Comment: Speci men Type: BLOOD SPECIMENOrdering Facility: [facility] Address: [address] [place] [address] Performed By: #### 5 7021-8 ####[facility] [id number] [place] [address] [place] Eosinophils (Bld) [#/Vol] 0.29 10*3/uL Normal <0.46 [facility] Comment on above: Order Comment: Speci men Type: BLOOD SPECIMENOrdering Facility: [facility] Address: [address] [place] [address] Performed By: #### 5 7021-8 ####[facility] [id number] [place] [address] [place] Eosinophils/100 WBC (Bld) 5.9 % Normal [facility] Comment on above: Order Comment: Speci men Type: BLOOD SPECIMENOrdering Facility: [facility] Address: [address] [place] [address] Performed By: #### 5 7021-8 ####[facility] [place] [id number] [place] [address] [place] Erythrocyte distribution width (RBC) [Ratio] 13.8 % Normal 11.5-15.0 [facility] Comment on above: Order Comment: Speci men Type: BLOOD SPECIMENOrdering Facility: [facility] Address: [address] [place] [address] Performed By: #### 5 7021-8 ####[facility] [id number] [place] [address] [place] Hematocrit (Bld) [Volume fraction] 39.4 % Normal 39.0-51.0 [facility] Comment on above: Order Comment: Speci men Type: BLOOD SPECIMENOrdering Facility: [facility] Address: [address] [place] [address] Performed By: #### 5 7021-8 ####[facility] [id number] [place] [address] [place] Hemoglobin (Bld) [Mass/Vol] 13.5 g/dL Normal 13.0-17.0 [facility] Comment on above: Order Comment: Speci men Type: BLOOD SPECIMENOrdering Facility: [facility] Address: [address] [place] [address] Performed By: #### 5 7021-8 ####[facility] [id number] [place] [address] [place] Immature granulocytes (Bld) [#/Vol] 10*3/uL Normal <0.10 [facility] Comment on above: Order Comment: Speci men Type: BLOOD SPECIMENOrdering Facility: [facility] Address: [address] [place] [address] Performed By: #### 5 7021-8 ####[facility] [place] [id number] [place] [address] [place] Immature granulocytes/100 WBC (Bld) 0.4 % Normal [facility] Comment on above: Order Comment: Speci men Type: BLOOD SPECIMENOrdering Facility: [facility] Address: [address] [place] [address] Performed By: #### 5 7021-8 ####[facility] [place] [id number] [place] [address] [place] Lymphocytes (Bld) [#/Vol] 0.35 10*3/uL Low 1.00-4.00 [facility] Comment on above: Order Comment: Speci men Type: BLOOD SPECIMENOrdering Facility: [facility] Address: [address] [place] [address] Performed By: #### 5 7021-8 ####[facility] [id number] [place] [address] [place] Lymphocytes/100 WBC (Bld) 7.2 % Normal [facility] Comment on above: Order Comment: Speci men Type: BLOOD SPECIMENOrdering Facility: [facility] Address: [address] [place] [address] Performed By: #### 5 7021-8 ####[facility] [id number] [place] [address] [place] MCH (RBC) [Entitic mass] 31.8 pg Normal 26.0-34.0 [facility] Comment on above: Order Comment: Speci men Type: BLOOD SPECIMENOrdering Facility: [facility] Address: [address] [place] [address] Performed By: #### 5 7021-8 ####[facility] [id number] [place] [address] [place] MCHC (RBC) [Mass/Vol] 34.3 g/dL Normal 30.5-36.0 [facility] Comment on above: Order Comment: Speci men Type: BLOOD SPECIMENOrdering Facility: [facility] Address: [address] [place] [address] Performed By: #### 5 7021-8 ####[facility] [id number] [place] [address] [place] MCV (RBC) [Entitic vol] 92.9 fL Normal 80.0-100.0 [facility] Comment on above: Order Comment: Speci men Type: BLOOD SPECIMENOrdering Facility: [facility] Address: [address] [place] [address] Performed By: #### 5 7021-8 ####[facility] [id number] [place] [address] [place] Monocytes (Bld) [#/Vol] 0.95 10*3/uL High <0.87 [facility] Comment on above: Order Comment: Speci men Type: BLOOD SPECIMENOrdering Facility: [facility] Address: [address] [place] [address] Performed By: #### 5 7021-8 ####[facility] [id number] [place] [address] [place] Monocytes/100 WBC (Bld) 19.5 % Normal [facility] Comment on above: Order Comment: Speci men Type: BLOOD SPECIMENOrdering Facility: [facility] Address: [address] [place] [address] Performed By: #### 5 7021-8 ####[facility] [id number] [place] [address] [place] Neutrophils (Bld) [#/Vol] 3.22 10*3/uL Normal 1.45-7.50 [facility] Comment on above: Order Comment: Speci men Type: BLOOD SPECIMENOrdering Facility: [facility] Address: [address] [place] [address] Performed By: #### 5 7021-8 ####[facility] [id number] [place] [address] [place] Neutrophils/100 WBC (Bld) 66.0 % Normal [facility] Comment on above: Order Comment: Speci men Type: BLOOD SPECIMENOrdering Facility: [facility] Address: [address] [place] [address] Performed By: #### 5 7021-8 ####[facility] [id number] [place] [address] [place] Nucleated RBC (Bld) [#/Vol] 10*3/uL Normal <0.01 [facility] Comment on above: Order Comment: Speci men Type: BLOOD SPECIMENOrdering Facility: [facility] Address: [address] [place] [address] Performed By: #### 5 7021-8 ####[facility] [id number] [place] [address] [place] Nucleated RBC/100 WBC (Bld) [Ratio] 0.0 /100 WBC Normal [facility] Comment on above: Order Comment: Speci men Type: BLOOD SPECIMENOrdering Facility: [facility] Address: [address] [place] [address] Performed By: #### 5 7021-8 ####[facility] [id number] [place] [address] [place] Platelet mean volume (Bld) [Entitic vol] 9.9 fL Normal 9.0-12.7 [facility] Comment on above: Order Comment: Speci men Type: BLOOD SPECIMENOrdering Facility: [facility] Address: [address] [place] [address] Performed By: #### 5 7021-8 ####[facility] [id number] [place] [address] [place] Platelets (Bld) [#/Vol] 156 10*3/uL Normal 150-400 [facility] Comment on above: Order Comment: Speci men Type: BLOOD SPECIMENOrdering Facility: [facility] Address: [address] [place] [address] Performed By: #### 5 7021-8 ####[facility] [id number] [place] [address] [place] RBC (Bld) [#/Vol] 4.24 10*6/uL Normal 4.20-6.00 [place] Comment on above: Order Comment: Speci men Type: BLOOD SPECIMENOrdering Facility: [facility] Address: [address] [place] [address] Performed By: #### 5 7021-8 ####[facility] [id number] [place] [address] [place] WBC (Bld) [#/Vol] 4.88 10*3/uL Normal 3.70-11.00 [place] Comment on above: Order Comment: Speci men Type: BLOOD SPECIMENOrdering Facility: [facility] Address: [address] [place] [address] Performed By: #### 5 7021-8 ####[facility] [id number] [place] [address] [place] CNCOon 04-01-2024 CNCO Letter Text Normal [facility] CNOVSPon 04-01-2024 CNOVSP Normal [facility] Comprehensive metabolic 2000 panelon 04-01-2024 Albumin [Mass/Vol] 3.7 g/dL Low 3.9 - 4.9 g/dL [facility] ALP [Catalytic activity/Vol] 169 U/L High 38 - 113 U/L [facility] ALT [Catalytic activity/Vol] 17 U/L 10 - 54 U/L [facility] Anion gap [Moles/Vol] 10 mmol/L 9 - 18 mmol/L [facility] AST [Catalytic activity/Vol] 17 U/L 14 - 40 U/L [facility] Bilirubin [Mass/Vol] 0.2 mg/dL 0.2 - 1 .3 mg/dL [facility] Calcium [Mass/Vol] 8.4 mg/dL Low 8.5 - 10. 2 mg/dL [facility] Chloride [Moles/Vol] 108 mmol/L High 97 - 10 5 mmol/L [facility] CO2 [Moles/Vol] 23 mmol/L 22 - 30 mmol/L [facility] Creatinine [Mass/Vol] 0.88 mg/dL 0.73 - 1.22 mg/dL [facility] GFR/1.73 sq M.predicted among non-blacks MDRD (S/P/Bld) [Vol rate/Area] 94 mL/min/{1.73_m2} - PINF [facility] Comment on above: Estimated Glomerular Filtration Rate [...] not accurately reflect actual GFR. Glucose [Mass/Vol] 88 mg/dL 74 - 99 mg/dL [facility] Comment on above: The [place] Diab[employer] Association (ADA) provides guidance for [...] Standards of Medical Care in Diabetes 2016, [place] [employer]. Diabetes Care. 2016.39(Suppl 1). Interpretation and review of laboratory results Abnormal [facility] Potassium [Moles/Vol] 3.9 mmol/L 3.7 - 5.1 mmol/L [facility] Protein [Mass/Vol] 6.2 g/dL Low 6.3 - 8.0 g/dL [facility] Sodium [Moles/Vol] 141 mmol/L 136 - 144 mmol/L [facility] Urea nitrogen [Mass/Vol] 17 mg/dL 9 - 24 mg/dL [facility] Albumin [Mass/Vol] 3.7 g/dL Low 3.9-4.9 [facility] Comment on above: Order Comment: Sara randle Type: BLOOD SPECIMENOrdering Facility: [facility] Address: [address] [place] [address] Performed By: #### 2 4323-8 ####[facility] LABIA [id number] [place] [address] [place] ALP [Catalytic activity/Vol] 169 U/L High 38-113 [facility] Comment on above: Order Comment: Dottyi razia Type: BLOOD SPECIMENOrdering Facility: [facility] Address: [address] [place] [address] Performed By: #### 2 4323-8 ####[facility] LABCLIA [id number] [place] [address] [place] ALT [Catalytic activity/Vol] 17 U/L Normal 10-54 [facility] Comment on above: Order Comment: Dottyi razia Type: BLOOD SPECIMENOrdering Facility: [facility] Address: [address] [place] [address] Performed By: #### 2 4323-8 ####[facility] [id number] [place] [address] [place] Anion gap [Moles/Vol] 10 mmol/L Normal 9-18 [facility] Comment on above: Order Comment: Speci men Type: BLOOD SPECIMENOrdering Facility: [facility] Address: [address] [place] [address] Performed By: #### 2 4323-8 ####[facility] LABCLIA [id number] [place] [address] [place] AST [Catalytic activity/Vol] 17 U/L Normal 14-40 [facility] Comment on above: Order Comment: Speci men Type: BLOOD SPECIMENOrdering Facility: [facility] Address: [address] [place] [address] Performed By: #### 2 4323-8 ####[facility] LABCLIA [id number] [place] [address] [place] Bilirubin [Mass/Vol] 0.2 mg/dL Normal 0.2-1.3 [facility] Comment on above: Order Comment: Speci men Type: BLOOD SPECIMENOrdering Facility: [facility] Address: [address] [place] [address] Performed By: #### 2 4323-8 ####[facility] LABCLIA [id number] [place] [address] [place] Calcium [Mass/Vol] 8.4 mg/dL Low 8.5-10.2 [facility] Comment on above: Order Comment: Speci men Type: BLOOD SPECIMENOrdering Facility: [facility] Address: [address] [place] [address] Performed By: #### 2 4323-8 ####[facility] LABCLIA [id number] [place] [address] [place] Chloride [Moles/Vol] 108 mmol/L High 97-105 [facility] Comment on above: Order Comment: Speci men Type: BLOOD SPECIMENOrdering Facility: [facility] Address: [address] [place] [id number] Performed By: #### 2 4323-8 ####[facility] LABCLIA [id number] [place] [address] [place] CO2 [Moles/Vol] 23 mmol/L Normal 22-30 [facility] Comment on above: Order Comment: Speci men Type: BLOOD SPECIMENOrdering Facility: [facility] Address: [address] [place] [address] Performed By: #### 2 4323-8 ####[facility] LABCLIA [id number] [place] [address] [place] Creatinine [Mass/Vol] 0.88 mg/dL Normal 0.73-1.22 [facility] Comment on above: Order Comment: Speci men Type: BLOOD SPECIMENOrdering Facility: [facility] Address: [address] [place] [address] Performed By: #### 2 4323-8 ####[facility] [id number] [place] [address] [place] Creatinine and Glomerular filtration rate.predicted panel (S/P/Bld) 94 mL/min/1.73m??? Normal >=60 [facility] Comment on above: Order Comment: Speci men Type: BLOOD SPECIMENOrdering Facility: [facility] Address: [address] [place] [address] Result Comment: Carol mated Glomerular Filtration Rate [...] actual GFR. Performed By: #### 2 4323-8 ####[facility] LABCLIA [id number] [place] [address] [place] Glucose [Mass/Vol] 88 mg/dL Normal 74-99 [facility] Comment on above: Order Comment: Speci men Type: BLOOD SPECIMENOrdering Facility: [facility] Address: [address] [place] [address] Result Comment: The [place] Diabetes Association (ADA) provides guidance for cutoff [...] Standards of Medical Care in Diabetes 2016, [place] [employer]. Diabetes Care. 2016.39(Suppl 1). Performed By: #### 2 4323-8 ####[facility] LABCLIA [id number] [place] [address] [place] Potassium [Moles/Vol] 3.9 mmol/L Normal 3.7-5.1 [facility] Comment on above: Order Comment: Sara randle Type: BLOOD SPECIMENOrdering Facility: [facility] Address: [address] [place] [address] Performed By: #### 2 4323-8 ####[facility] LABCLIA [id number] [place] [address] [place] Protein [Mass/Vol] 6.2 g/dL Low 6.3-8.0 [facility] Comment on above: Order Comment: Speci men Type: BLOOD SPECIMENOrdering Facility: [facility] Address: [address] [place] [address] Performed By: #### 2 4323-8 ####[facility] LABCLIA [id number] [place] [address] [place] Sodium [Moles/Vol] 141 mmol/L Normal 136-144 [facility] Comment on above: Order Comment: Speci men Type: BLOOD SPECIMENOrdering Facility: [facility] Address: [address] [place] [address] Performed By: #### 2 4323-8 ####[facility] [id number] [place] [address] [place] Urea nitrogen [Mass/Vol] 17 mg/dL Normal 9-24 [facility] Comment on above: Order Comment: Speci men Type: BLOOD SPECIMENOrdering Facility: [facility] Address: [address] [place] [address] Performed By: #### 2 4323-8 ####[facility] [id number] [place] [address] [place] CNCOon 03-26-2024 CNCO Letter Text Normal [facility] NM PET/CT SKULL-THIGH SUBQon 03-25-2024 NM PET/CT SKULL-THIGH SUBQ Normal [facility] CNOVon 03-22-2024 CNOV Normal [facility] CNOVon 03-16-2024 CNOV Normal [facility] CNCNPATEDon 03-15-2024 CNCNPATED Normal [facility] CNOVon 03-15-2024 CNOV Normal [facility] CNPNon 03-13-2024 CNPN Normal [facility] CNPNon 03-10-2024 CNPN Normal [facility] BILIRUBIN, CONJUGATEDon Bilirubin.conjugated [Mass/Vol] mg/dL NINF - 0.2 mg/dL [facility] Bilirub Conj SerPl-mCncon Bilirubin.conjugated [Mass/Vol] mg/dL Normal <0.2 [facility] Comment on above: Order Comment: Speci men Type: BLOOD SPECIMENOrdering Facility: [facility] Address: [address] [place] [address] Performed By: #### 1 5152-2, 63628-2, 3084-1 ####[facility] [id number] [address] [address] [place] C-REACTIVE PROTEINon 024 CRP [Mass/Vol] 2.3 mg/dL High NINF - 0.9 mg/dL [facility] CBC W Auto Differential pane l (Bld)on 03-09-2024 Basophils (Bld) [#/Vol] 0.07 10*3/uL [facility] Basophils/100 WBC (Bld) 0.9 % [facility] Differential cell count method Nom (Bld) Auto [facility] Eosinophils (Bld) [#/Vol] 0.38 10*3/uL [facility] Eosinophils/100 WBC (Bld) 5.1 % [facility] Erythrocyte distribution width (RBC) [Ratio] 13.0 % 11.5 - 15.0 % [facility] Hematocrit (Bld) [Volume fraction] 38.7 % Low 39.0 - 51.0 % [facility] Hemoglobin (Bld) [Mass/Vol] 13.2 g/dL 13.0 - 17.0 g/dL [facility] Immature granulocytes (Bld) [#/Vol] [facility] Immature granulocytes/100 WBC (Bld) 0.3 % [facility] Interpretation and review of laboratory results Abnormal [facility] Lymphocytes (Bld) [#/Vol] 0.54 10*3/uL Low [facility] Lymphocytes/100 WBC (Bld) 7.3 % [facility] MCH (RBC) [Entitic mass] 30.7 pg 26.0 - 34.0 pg [facility] MCHC (RBC) [Mass/Vol] 34.1 g/dL 30.5 - 36.0 g/dL [facility] MCV (RBC) [Entitic vol] 90.0 fL 80.0 - 100.0 fL [facility] Monocytes (Bld) [#/Vol] 1.06 10*3/uL High [facility] Monocytes/100 WBC (Bld) 14.3 % [facility] Neutrophils (Bld) [#/Vol] 5.36 10*3/uL [facility] Neutrophils/100 WBC (Bld) 72.1 % [facility] Nucleated RBC (Bld) [#/Vol] [facility] Nucleated RBC/100 WBC (Bld) [Ratio] 0.0 % /100 WBC [facility] Platelet mean volume (Bld) [Entitic vol] 9.9 fL 9.0 - 12.7 fL [facility] Platelets (Bld) [#/Vol] 219 10*3/uL [facility] RBC (Bld) [#/Vol] 4.30 10*6/uL 4.20 - 6.00 m/uL [facility] WBC (Bld) [#/Vol] 7.43 10*3/uL [facility] Basophils (Bld) [#/Vol] 0.07 10*3/uL Normal <0.11 [facility] Comment on above: Order Comment: Speci men Type: BLOOD SPECIMENOrdering Facility: [facility] Address: [address] [place] [address] Performed By: #### 5 7021-8 ####[facility] [id number] [place] [address] [place] Basophils/100 WBC (Bld) 0.9 % Normal [facility] Comment on above: Order Comment: Speci men Type: BLOOD SPECIMENOrdering Facility: [facility] Address: [address] [place] [address] Performed By: #### 5 7021-8 ####[facility] [id number] [place] [address] [place] Differential cell count method Nom (Bld) Auto Normal [facility] Comment on above: Order Comment: Speci men Type: BLOOD SPECIMENOrdering Facility: [facility] Address: [address] [place] [address] Performed By: #### 5 7021-8 ####[facility] [id number] [place] [address] [place] Eosinophils (Bld) [#/Vol] 0.38 10*3/uL Normal <0.46 [facility] Comment on above: Order Comment: Speci men Type: BLOOD SPECIMENOrdering Facility: [facility] Address: [address] [place] [address] Performed By: #### 5 7021-8 ####[facility] [id number] [place] [address] [place] Eosinophils/100 WBC (Bld) 5.1 % Normal [facility] Comment on above: Order Comment: Speci men Type: BLOOD SPECIMENOrdering Facility: [facility] Address: [address] [place] [address] Performed By: #### 5 7021-8 ####[facility] [id number] [place] [address] [place] Erythrocyte distribution width (RBC) [Ratio] 13.0 % Normal 11.5-15.0 [facility] Comment on above: Order Comment: Speci men Type: BLOOD SPECIMENOrdering Facility: [facility] Address: [address] [place] [address] Performed By: #### 5 7021-8 ####[facility] [id number] [place] [address] [place] Hematocrit (Bld) [Volume fraction] 38.7 % Low 39.0-51.0 [facility] Comment on above: Order Comment: Speci men Type: BLOOD SPECIMENOrdering Facility: [facility] Address: [address] [place] [address] Performed By: #### 5 7021-8 ####[facility] [id number] [place] [address] [place] Hemoglobin (Bld) [Mass/Vol] 13.2 g/dL Normal 13.0-17.0 [facility] Comment on above: Order Comment: Speci men Type: BLOOD SPECIMENOrdering Facility: [facility] Address: [address] [place] [address] Performed By: #### 5 7021-8 ####[facility] [id number] [place] [address] [place] Immature granulocytes (Bld) [#/Vol] 10*3/uL Normal <0.10 [facility] Comment on above: Order Comment: Speci men Type: BLOOD SPECIMENOrdering Facility: [facility] Address: [address] [place] [address] Performed By: #### 5 7021-8 ####[facility] [id number] [place] [address] [place] Immature granulocytes/100 WBC (Bld) 0.3 % Normal [facility] Comment on above: Order Comment: Speci men Type: BLOOD SPECIMENOrdering Facility: [facility] Address: [address] [place] [address] Performed By: #### 5 7021-8 ####[facility] [id number] [place] [address] [place] Lymphocytes (Bld) [#/Vol] 0.54 10*3/uL Low 1.00-4.00 [facility] Comment on above: Order Comment: Speci men Type: BLOOD SPECIMENOrdering Facility: [facility] Address: [address] [place] [address] Performed By: #### 5 7021-8 ####[facility] [place] [id number] [place] [address] [place] Lymphocytes/100 WBC (Bld) 7.3 % Normal [facility] Comment on above: Order Comment: Speci men Type: BLOOD SPECIMENOrdering Facility: [facility] Address: [address] [place] [address] Performed By: #### 5 7021-8 ####[facility] [id number] [place] [address] [place] MCH (RBC) [Entitic mass] 30.7 pg Normal 26.0-34.0 [facility] Comment on above: Order Comment: Speci men Type: BLOOD SPECIMENOrdering Facility: [facility] Address: [address] [place] [address] Performed By: #### 5 7021-8 ####[facility] [id number] [place] [address] [place] MCHC (RBC) [Mass/Vol] 34.1 g/dL Normal 30.5-36.0 [facility] Comment on above: Order Comment: Speci men Type: BLOOD SPECIMENOrdering Facility: [facility] Address: [address] [place] [address] Performed By: #### 5 7021-8 ####[facility] [id number] [place] [address] [place] MCV (RBC) [Entitic vol] 90.0 fL Normal 80.0-100.0 [facility] Comment on above: Order Comment: Speci men Type: BLOOD SPECIMENOrdering Facility: [facility] Address: [address] [place] [address] Performed By: #### 5 7021-8 ####[facility] [place] [id number] [place] [address] [place] Monocytes (Bld) [#/Vol] 1.06 10*3/uL High <0.87 [facility] Comment on above: Order Comment: Speci men Type: BLOOD SPECIMENOrdering Facility: [facility] Address: [address] [place] [address] Performed By: #### 5 7021-8 ####[facility] [id number] [place] [address] [place] Monocytes/100 WBC (Bld) 14.3 % Normal [facility] Comment on above: Order Comment: Speci men Type: BLOOD SPECIMENOrdering Facility: [facility] Address: [address] [place] [address] Performed By: #### 5 7021-8 ####[facility] [id number] [place] [address] [place] Neutrophils (Bld) [#/Vol] 5.36 10*3/uL Normal 1.45-7.50 [facility] Comment on above: Order Comment: Speci men Type: BLOOD SPECIMENOrdering Facility: [facility] Address: [address] [place] [address] Performed By: #### 5 7021-8 ####[facility] [id number] [place] [address] [place] Neutrophils/100 WBC (Bld) 72.1 % Normal [facility] Comment on above: Order Comment: Speci men Type: BLOOD SPECIMENOrdering Facility: [facility] Address: [address] [place] [address] Performed By: #### 5 7021-8 ####[facility] [place] [id number] [place] [address] [place] Nucleated RBC (Bld) [#/Vol] 10*3/uL Normal <0.01 [facility] Comment on above: Order Comment: Speci men Type: BLOOD SPECIMENOrdering Facility: [facility] Address: [address] [place] [address] Performed By: #### 5 7021-8 ####[facility] [id number] [place] [address] [place] Nucleated RBC/100 WBC (Bld) [Ratio] 0.0 /100 WBC Normal [facility] Comment on above: Order Comment: Speci men Type: BLOOD SPECIMENOrdering Facility: [facility] Address: [address] [place] [address] Performed By: #### 5 7021-8 ####[facility] [id number] [place] [address] [place] Platelet mean volume (Bld) [Entitic vol] 9.9 fL Normal 9.0-12.7 [facility] Comment on above: Order Comment: Speci men Type: BLOOD SPECIMENOrdering Facility: [facility] Address: [address] [place] [address] Performed By: #### 5 7021-8 ####[facility] [id number] [place] [address] [place] Platelets (Bld) [#/Vol] 219 10*3/uL Normal 150-400 [facility] Comment on above: Order Comment: Speci men Type: BLOOD SPECIMENOrdering Facility: [facility] Address: [address] [place] [address] Performed By: #### 5 7021-8 ####[facility] [id number] [place] [address] [place] RBC (Bld) [#/Vol] 4.30 10*6/uL Normal 4.20-6.00 [place] Comment on above: Order Comment: Speci men Type: BLOOD SPECIMENOrdering Facility: [facility] Address: [address] [place] [address] Performed By: #### 5 7021-8 ####[facility] [id number] [place] [address] [place] WBC (Bld) [#/Vol] 7.43 10*3/uL Normal 3.70-11.00 [place] Comment on above: Order Comment: Speci men Type: BLOOD SPECIMENOrdering Facility: [facility] Address: [address] [place] [address] Performed By: #### 5 7021-8 ####[facility] [id number] [place] [address] [place] CRP [facility] CRP [Mass/Vol] 2.3 mg/dL High <0.9 [facility] Comment on above: Order Comment: Speci men Type: BLOOD SPECIMENOrdering Facility: [facility] Address: [address] [place] [address] Performed By: #### 1 988-5 ####[facility] [id number] [place] [id number] [place] CRP [Mass/Vol]on 03-09-2024 Interpretation and review of laboratory results Abnormal [facility] Comprehensive metabolic 2000 panelon 03-09-2024 Albumin [Mass/Vol] 4.1 g/dL 3.9 - 4.9 g/dL [facility] ALP [Catalytic activity/Vol] 252 U/L High 38 - 113 U/L [facility] ALT [Catalytic activity/Vol] 20 U/L 10 - 54 U/L [facility] Anion gap [Moles/Vol] 13 mmol/L 9 - 18 mmol/L [facility] AST [Catalytic activity/Vol] 19 U/L 14 - 40 U/L [facility] Bilirubin [Mass/Vol] 0.2 mg/dL 0.2 - 1 .3 mg/dL [facility] Calcium [Mass/Vol] 9.4 mg/dL 8.5 - 10. 2 mg/dL [facility] Chloride [Moles/Vol] 103 mmol/L 97 - 10 5 mmol/L [facility] CO2 [Moles/Vol] 24 mmol/L 22 - 30 mmol/L [facility] Creatinine [Mass/Vol] 0.98 mg/dL 0.73 - 1.22 mg/dL [facility] GFR/1.73 sq M.predicted among non-blacks MDRD (S/P/Bld) [Vol rate/Area] 85 mL/min/{1.73_m2} - PINF [facility] Comment on above: Estimated Glomerular Filtration Rate [...] 105 mg/dL High 74 - 99 mg/dL [facility] Comment on above: The [place] Di[employer] Association (ADA) provides guidance for [...] Standards of Medical Care in Diabetes 2016, [place] [employer]. Diabetes Care. 2016.39(Suppl 1). Interpretation and review of laboratory results Abnormal [facility] Potassium [Moles/Vol] 4.3 mmol/L 3.7 - 5.1 mmol/L [facility] Protein [Mass/Vol] 7.3 g/dL 6.3 - 8.0 g/dL [facility] Sodium [Moles/Vol] 140 mmol/L 136 - 144 mmol/L [facility] Urea nitrogen [Mass/Vol] 15 mg/dL 9 - 24 mg/dL [facility] Albumin [Mass/Vol] 4.1 g/dL Normal 3.9-4.9 [facility] Comment on above: Order Comment: Sara randle Type: BLOOD SPECIMENOrdering Facility: [facility] Address: [address] [place] [address] Performed By: #### 1 5152-2, 75957-3, 3084-1 ####[facility] [id number] [place] [address] [place] ALP [Catalytic activity/Vol] 252 U/L High 38-113 [facility] Comment on above: Order Comment: Sara randle Type: BLOOD SPECIMENOrdering Facility: [facility] Address: [address] [place] [address] Performed By: #### 1 5152-2, 03550-2, 3084-1 ####[facility] [id number] [place] [address] [place] ALT [Catalytic activity/Vol] 20 U/L Normal 10-54 [facility] Comment on above: Order Comment: Sara randle Type: BLOOD SPECIMENOrdering Facility: [facility] Address: [address] [place] [address] Performed By: #### 1 5152-2, 54456-8, 3083-1 ####[facility] [id number] [place] [address] [place] Anion gap [Moles/Vol] 13 mmol/L Normal 9-18 [facility] Comment on above: Order Comment: Speci men Type: BLOOD SPECIMENOrdering Facility: [facility] Address: [address] [place] [address] Performed By: #### 1 5152-2, 58735-9, 3083- ####[facility] [id number] [place] [address] [place] AST [Catalytic activity/Vol] 19 U/L Normal 14-40 [facility] Comment on above: Order Comment: Speci men Type: BLOOD SPECIMENOrdering Facility: [facility] Address: [address] [place] [address] Performed By: #### 1 5152-2, 34491-5, 3083- ####[facility] [id number] [place] [address] [place] Bilirubin [Mass/Vol] 0.2 mg/dL Normal 0.2-1.3 [facility] Comment on above: Order Comment: Speci men Type: BLOOD SPECIMENOrdering Facility: [facility] Address: [address] [place] [address] Performed By: #### 1 5152-2, 79058-4, 3083- ####[facility] [id number] [place] [address] [place] Calcium [Mass/Vol] 9.4 mg/dL Normal 8.5-10.2 [facility] Comment on above: Order Comment: Speci men Type: BLOOD SPECIMENOrdering Facility: [facility] Address: [address] [place] [address] Performed By: #### 1 5152-2, 14143-8, 308-1 ####[facility] [id number] [address] [address] [place] Chloride [Moles/Vol] 103 mmol/L Normal 97-105 [facility] Comment on above: Order Comment: Speci men Type: BLOOD SPECIMENOrdering Facility: [facility] Address: [address] [place] [address] Performed By: #### 1 5152-2, 39514-4, 3083- ####[facility] [id number] [place] [address] [place] CO2 [Moles/Vol] 24 mmol/L Normal 22-30 [facility] Comment on above: Order Comment: Speci men Type: BLOOD SPECIMENOrdering Facility: [facility] Address: [address] [place] [address] Performed By: #### 1 5152-2, 80999-7, 3083-11 ####[facility] [id number] [place] [address] [place] Creatinine [Mass/Vol] 0.98 mg/dL Normal 0.73-1.22 [facility] Comment on above: Order Comment: Speci men Type: BLOOD SPECIMENOrdering Facility: [facility] Address: [address] [place] [address] Performed By: #### 1 5152-2, 61018-4, 3083-11 ####[facility] [id number] [place] [address] [place] Creatinine and Glomerular filtration rate.predicted panel (S/P/Bld) 85 mL/min/1.73m??? Normal >=60 [facility] Comment on above: Order Comment: Speci men Type: BLOOD SPECIMENOrdering Facility: [facility] Address: [address] [place] [address] Result Comment: Carol mated Glomerular Filtration Rate [...] reflect actual GFR. Performed By: #### 1 5152-2, 44015-3, 3083- ####[facility] [id number] [place] [address] [place] Glucose [Mass/Vol] 105 mg/dL High 74-99 [facility] Comment on above: Order Comment: Sara randle Type: BLOOD SPECIMENOrdering Facility: [facility] Address: [address] [place] [address] Result Comment: The [place] Diabetes Association (ADA) provides guidance for cutoff [...] Standards of Medical Care in Diabetes 2016, [place] [employer]. Diabetes Care. 2016.39(Suppl 1). Performed By: #### 1 5152-2, , 3083-11 ####[facility] [id number] [place] [address] [place] Potassium [Moles/Vol] 4.3 mmol/L Normal 3.7-5.1 [facility] Comment on above: Order Comment: Sara randle Type: BLOOD SPECIMENOrdering Facility: [facility] Address: [address] [place] [address] Performed By: #### 1 5152-2, 64740-8, 3083- ####[facility] [id number] [place] [address] [place] Protein [Mass/Vol] 7.3 g/dL Normal 6.3-8.0 [facility] Comment on above: Order Comment: Speci men Type: BLOOD SPECIMENOrdering Facility: [facility] Address: [address] [place] [address] Performed By: #### 1 5152-2, 41486-6, 3084-1 ####[facility] [id number] [place] [address] [place] Sodium [Moles/Vol] 140 mmol/L Normal 136-144 [facility] Comment on above: Order Comment: Speci men Type: BLOOD SPECIMENOrdering Facility: [facility] Address: [address] [place] [address] Performed By: #### 1 5152-2, 25077-4, 3084-1 ####[facility] [place] [id number] [place] [address] [place] Urea nitrogen [Mass/Vol] 15 mg/dL Normal 9-24 [facility] Comment on above: Order Comment: Speci men Type: BLOOD SPECIMENOrdering Facility: [facility] Address: [address] [place] [address] Performed By: #### 1 5152-2, 52798-0, 3084-1 ####[facility] [id number] [place] [address] [place] IR CENTRAL CATH PLACEMENTon 03-09-2024 IR CENTRAL CATH PLACEMENT Normal [facility] LACTATE DEHYDROGENASEon 05-0 LDH [Catalytic activity/Vol] 214 U/L 135 - 225 U/L [facility] LDH SerPl-cCncon 03-09-2024 LDH [Catalytic activity/Vol] 214 U/L Normal 135-225 [facility] Comment on above: Order Comment: Speci men Type: BLOOD SPECIMENOrdering Facility: [facility] Address: [address] [place] [address] Performed By: #### 2 532-0 ####[facility] [id number] [place] [address] [place] LDH [Catalytic activity/Vol] on 03-09-2024 Interpretation and review of laboratory results Normal [facility] MAGNESIUMon 03-09-2024 Magnesium [Mass/Vol] 2.1 mg/dL 1.7 - 2 .3 mg/dL [facility] Magnesium SerPl-mCncon 03-09 Magnesium [Mass/Vol] 2.1 mg/dL Normal 1.7-2.3 [facility] Comment on above: Order Comment: Speci men Type: BLOOD SPECIMENOrdering Facility: [facility] Address: [address] [place] [address] Performed By: #### 1 9123-9, 2777-1 ####[facility] [place] [id number] [address] [place] No Panel Informationon 03-09 Interpretation and review of laboratory results Normal [facility] Interpretation and review of laboratory results Normal [facility] PHOSPHORUS INORGANICon 03-09 Phosphate [Mass/Vol] 3.6 mg/dL 2.7 - 4 .8 mg/dL [facility] Phosphate SerPl-ncon 03-09 Phosphate [Mass/Vol] 3.6 mg/dL Normal 2.7-4.8 [facility] Comment on above: Order Comment: Speci men Type: BLOOD SPECIMENOrdering Facility: [facility] Address: [address] [place] [address] Performed By: #### 1 9123-9, 2777-1 ####[facility] [place] [id number] [address] [place] URIC ACIDon 03-09-2024 Urate [Mass/Vol] 6.7 mg/dL 4.0 - 8.1 mg/dL [facility] Urate SerPl-mCncon Urate [Mass/Vol] 6.7 mg/dL Normal 4.0-8.1 [facility] Comment on above: Order Comment: Speci men Type: BLOOD SPECIMENOrdering Facility: [facility] Address: [address] [place] [address] Performed By: #### 1 5152-2, 77131-1, 3084-1 ####[facility] [id number] [place] [address] [place] BLOOD TB SCREENon 03-08-2024 M. tuberculosis tuberculin stim IFN-g Ql (Bld) Negative Normal [facility] Comment on above: Order Comment: Speci men Type: BLOOD SPECIMENOrdering Facility: [facility] Address: [address] [place] [address] Performed By: #### I NFTBP ####[facility] [id number] [place] [address] [place] MITOGEN MINUS NIL >9.95 Normal >=0.50 [facility] Comment on above: Order Comment: Speci men Type: BLOOD SPECIMENOrdering Facility: [facility] Address: [address] [place] [address] Performed By: #### I NFTBP ####[facility] [id number] [place] [address] [place] TB GAMMA INTERPRETATION Normal [facility] Comment on above: Order Comment: Speci men Type: BLOOD SPECIMENOrdering Facility: [facility] Address: [address] [place] [address] Performed By: #### I NFTBP ####[facility] [id number] [address] [place] TB NIL 0.05 IU/mL Normal <=8.00 [facility] Comment on above: Order Comment: Speci men Type: BLOOD SPECIMENOrdering Facility: [facility] Address: [address] [place] [address] Performed By: #### I NFTBP ####[facility] [id number] [place] [address] [place] TB1 AG MINUS NIL 0.00 IU/mL Normal <0.35 [facility] Comment on above: Order Comment: Speci men Type: BLOOD SPECIMENOrdering Facility: [facility] Address: [address] [place] [address] Performed By: #### I NFTBP ####[facility] [id number] [address] [place] TB2 AG MINUS NIL 0.00 IU/mL Normal <0.35 [facility] Comment on above: Order Comment: Speci men Type: BLOOD SPECIMENOrdering Facility: [facility] Address: [address] [place] [address] Performed By: #### I NFTBP ####[facility] [id number] [place] [address] [place] C-REACTIVE PROTEINon 024 CRP [Mass/Vol] 1.8 mg/dL High NINF - 0.9 mg/dL [facility] CBC W Auto Differential pane l (Bld)on 03-08-2024 Basophils (Bld) [#/Vol] 0.07 10*3/uL [facility] Basophils/100 WBC (Bld) 0.9 % [facility] Differential cell count method Nom (Bld) Auto [facility] Eosinophils (Bld) [#/Vol] 0.44 10*3/uL [facility] Eosinophils/100 WBC (Bld) 5.5 % [facility] Erythrocyte distribution width (RBC) [Ratio] 12.7 % 11.5 - 15.0 % [facility] Hematocrit (Bld) [Volume fraction] 40.1 % 39.0 - 51.0 % [facility] Hemoglobin (Bld) [Mass/Vol] 13.8 g/dL 13.0 - 17.0 g/dL [facility] Immature granulocytes (Bld) [#/Vol] 0.03 10*3/uL [facility] Immature granulocytes/100 WBC (Bld) 0.4 % [facility] Interpretation and review of laboratory results Abnormal [facility] Lymphocytes (Bld) [#/Vol] 0.48 10*3/uL Low [facility] Lymphocytes/100 WBC (Bld) 6.0 % [facility] MCH (RBC) [Entitic mass] 31.1 pg 26.0 - 34.0 pg [facility] MCHC (RBC) [Mass/Vol] 34.4 g/dL 30.5 - 36.0 g/dL [facility] MCV (RBC) [Entitic vol] 90.3 fL 80.0 - 100.0 fL [facility] Monocytes (Bld) [#/Vol] 1.16 10*3/uL High NINF [facility] Monocytes/100 WBC (Bld) 14.4 % [facility] Neutrophils (Bld) [#/Vol] 5.86 10*3/uL [facility] Neutrophils/100 WBC (Bld) 72.8 % [facility] Nucleated RBC (Bld) [#/Vol] NINF [facility] Nucleated RBC/100 WBC (Bld) [Ratio] 0.0 % /100 WBC [facility] Platelet mean volume (Bld) [Entitic vol] 11.0 fL 9.0 - 12.7 fL [facility] Platelets (Bld) [#/Vol] 173 10*3/uL [facility] RBC (Bld) [#/Vol] 4.44 10*6/uL 4.20 - 6.00 m/uL [facility] WBC (Bld) [#/Vol] 8.04 10*3/uL [facility] Basophils (Bld) [#/Vol] 0.07 10*3/uL Normal <0.11 [facility] Comment on above: Order Comment: Speci men Type: BLOOD SPECIMENOrdering Facility: [facility] Address: [address] [place] [address] Performed By: #### 5 7021-8 ####[facility] [id number] [place] [address] [place] Basophils/100 WBC (Bld) 0.9 % Normal [facility] Comment on above: Order Comment: Speci men Type: BLOOD SPECIMENOrdering Facility: [facility] Address: [address] [place] [address] Performed By: #### 5 7021-8 ####[facility] [id number] [place] [address] [place] Differential cell count method Nom (Bld) Auto Normal [facility] Comment on above: Order Comment: Speci men Type: BLOOD SPECIMENOrdering Facility: [facility] Address: [address] [place] [address] Performed By: #### 5 7021-8 ####[facility] [place] [id number] [place] [address] [place] Eosinophils (Bld) [#/Vol] 0.44 10*3/uL Normal <0.46 [facility] Comment on above: Order Comment: Speci men Type: BLOOD SPECIMENOrdering Facility: [facility] Address: [address] [place] [address] Performed By: #### 5 7021-8 ####[facility] [place] [id number] [place] [address] [place] Eosinophils/100 WBC (Bld) 5.5 % Normal [facility] Comment on above: Order Comment: Speci men Type: BLOOD SPECIMENOrdering Facility: [facility] Address: [address] [place] [address] Performed By: #### 5 7021-8 ####[facility] [place] [id number] [place] [address] [place] Erythrocyte distribution width (RBC) [Ratio] 12.7 % Normal 11.5-15.0 [facility] Comment on above: Order Comment: Speci men Type: BLOOD SPECIMENOrdering Facility: [facility] Address: [address] [place] [address] Performed By: #### 5 7021-8 ####[facility] [id number] [place] [address] [place] Hematocrit (Bld) [Volume fraction] 40.1 % Normal 39.0-51.0 [facility] Comment on above: Order Comment: Speci men Type: BLOOD SPECIMENOrdering Facility: [facility] Address: [address] [place] [address] Performed By: #### 5 7021-8 ####[facility] [id number] [place] [address] [place] Hemoglobin (Bld) [Mass/Vol] 13.8 g/dL Normal 13.0-17.0 [facility] Comment on above: Order Comment: Speci men Type: BLOOD SPECIMENOrdering Facility: [facility] Address: [address] [place] [address] Performed By: #### 5 7021-8 ####[facility] [id number] [place] [address] [place] Immature granulocytes (Bld) [#/Vol] 0.03 10*3/uL Normal <0.10 [facility] Comment on above: Order Comment: Speci men Type: BLOOD SPECIMENOrdering Facility: [facility] Address: [address] [place] [address] Performed By: #### 5 7021-8 ####[facility] [id number] [place] [address] [place] Immature granulocytes/100 WBC (Bld) 0.4 % Normal [facility] Comment on above: Order Comment: Speci men Type: BLOOD SPECIMENOrdering Facility: [facility] Address: [address] [place] [address] Performed By: #### 5 7021-8 ####[facility] [place] [id number] [place] [address] [place] Lymphocytes (Bld) [#/Vol] 0.48 10*3/uL Low 1.00-4.00 [facility] Comment on above: Order Comment: Speci men Type: BLOOD SPECIMENOrdering Facility: [facility] Address: [address] [place] [address] Performed By: #### 5 7021-8 ####[facility] [id number] [place] [address] [place] Lymphocytes/100 WBC (Bld) 6.0 % Normal [facility] Comment on above: Order Comment: Speci men Type: BLOOD SPECIMENOrdering Facility: [facility] Address: [address] [place] [address] Performed By: #### 5 7021-8 ####[facility] [id number] [place] [address] [place] MCH (RBC) [Entitic mass] 31.1 pg Normal 26.0-34.0 [facility] Comment on above: Order Comment: Speci men Type: BLOOD SPECIMENOrdering Facility: [facility] Address: [address] [place] [address] Performed By: #### 5 7021-8 ####[facility] [id number] [place] [address] [place] MCHC (RBC) [Mass/Vol] 34.4 g/dL Normal 30.5-36.0 [facility] Comment on above: Order Comment: Speci men Type: BLOOD SPECIMENOrdering Facility: [facility] Address: [address] [place] [address] Performed By: #### 5 7021-8 ####[facility] [id number] [place] [address] [place] MCV (RBC) [Entitic vol] 90.3 fL Normal 80.0-100.0 [facility] Comment on above: Order Comment: Speci men Type: BLOOD SPECIMENOrdering Facility: [facility] Address: [address] [place] [address] Performed By: #### 5 7021-8 ####[facility] [place] [id number] [place] [address] [place] Monocytes (Bld) [#/Vol] 1.16 10*3/uL High <0.87 [facility] Comment on above: Order Comment: Speci men Type: BLOOD SPECIMENOrdering Facility: [facility] Address: [address] [place] [address] Performed By: #### 5 7021-8 ####[facility] [id number] [place] [address] [place] Monocytes/100 WBC (Bld) 14.4 % Normal [facility] Comment on above: Order Comment: Speci men Type: BLOOD SPECIMENOrdering Facility: [facility] Address: [address] [place] [address] Performed By: #### 5 7021-8 ####[facility] [id number] [place] [address] [place] Neutrophils (Bld) [#/Vol] 5.86 10*3/uL Normal 1.45-7.50 [facility] Comment on above: Order Comment: Speci men Type: BLOOD SPECIMENOrdering Facility: [facility] Address: [address] [place] [address] Performed By: #### 5 7021-8 ####[facility] [id number] [place] [address] [place] Neutrophils/100 WBC (Bld) 72.8 % Normal [facility] Comment on above: Order Comment: Speci men Type: BLOOD SPECIMENOrdering Facility: [facility] Address: [address] [place] [address] Performed By: #### 5 7021-8 ####[facility] [id number] [place] [address] [place] Nucleated RBC (Bld) [#/Vol] 10*3/uL Normal <0.01 [facility] Comment on above: Order Comment: Speci men Type: BLOOD SPECIMENOrdering Facility: [facility] Address: [address] [place] [address] Performed By: #### 5 7021-8 ####[facility] [id number] [place] [address] [place] Nucleated RBC/100 WBC (Bld) [Ratio] 0.0 /100 WBC Normal [facility] Comment on above: Order Comment: Speci men Type: BLOOD SPECIMENOrdering Facility: [facility] Address: [address] [place] [address] Performed By: #### 5 7021-8 ####[facility] [id number] [place] [address] [place] Platelet mean volume (Bld) [Entitic vol] 11.0 fL Normal 9.0-12.7 [facility] Comment on above: Order Comment: Speci men Type: BLOOD SPECIMENOrdering Facility: [facility] Address: [address] [place] [address] Performed By: #### 5 7021-8 ####[facility] [id number] [place] [address] [place] Platelets (Bld) [#/Vol] 173 10*3/uL Normal 150-400 [facility] Comment on above: Order Comment: Speci men Type: BLOOD SPECIMENOrdering Facility: [facility] Address: [address] [place] [address] Performed By: #### 5 7021-8 ####[facility] [place] [id number] [place] [address] [place] RBC (Bld) [#/Vol] 4.44 10*6/uL Normal 4.20-6.00 [place] Comment on above: Order Comment: Speci men Type: BLOOD SPECIMENOrdering Facility: [facility] Address: [address] [place] [address] Performed By: #### 5 7021-8 ####[facility] [id number] [place] [address] [place] WBC (Bld) [#/Vol] 8.04 10*3/uL Normal 3.70-11.00 [place] Comment on above: Order Comment: Speci men Type: BLOOD SPECIMENOrdering Facility: [facility] Address: [address] [place] [address] Performed By: #### 5 7021-8 ####[facility] [id number] [place] [address] [place] CNOVSPon 03-08-2024 CNOVSP Normal [facility] CRP SerPl-mCncon 03-08-2024 CRP [Mass/Vol] 1.8 mg/dL High <0.9 [facility] Comment on above: Order Comment: Speci men Type: BLOOD SPECIMENOrdering Facility: [facility] Address: [address] [place] [address] Performed By: #### 1 988-5 ####[facility] [id number] [place] [address] [place] CRP [Mass/Vol]on 03-08-2024 Interpretation and review of laboratory results Abnormal [facility] Comprehensive metabolic 2000 panelon 03-08-2024 Albumin [Mass/Vol] 4.3 g/dL 3.9 - 4.9 g/dL [facility] ALP [Catalytic activity/Vol] 238 U/L High 38 - 113 U/L [facility] ALT [Catalytic activity/Vol] 18 U/L 10 - 54 U/L [facility] Anion gap [Moles/Vol] 11 mmol/L 9 - 18 mmol/L [facility] AST [Catalytic activity/Vol] 17 U/L 14 - 40 U/L [facility] Bilirubin [Mass/Vol] 0.2 mg/dL 0.2 - 1 .3 mg/dL [facility] Calcium [Mass/Vol] 9.9 mg/dL 8.5 - 10. 2 mg/dL [facility] Chloride [Moles/Vol] 104 mmol/L 97 - 10 5 mmol/L [facility] CO2 [Moles/Vol] 25 mmol/L 22 - 30 mmol/L [facility] Creatinine [Mass/Vol] 0.96 mg/dL 0.73 - 1.22 mg/dL [facility] GFR/1.73 sq M.predicted among non-blacks MDRD (S/P/Bld) [Vol rate/Area] 87 mL/min/{1.73_m2} - PINF [facility] Comment on above: Estimated Glomerular Filtration Rate [...] [Mass/Vol] 93 mg/dL 74 - 99 mg/dL [facility] Comment on above: The [place] Diab[employer] Association (ADA) provides guidance for [...] Standards of Medical Care in Diabetes 2016, [place] [employer]. Diabetes Care. 2016.39(Suppl 1). Interpretation and review of laboratory results Abnormal [facility] Potassium [Moles/Vol] 4.2 mmol/L 3.7 - 5.1 mmol/L [facility] Protein [Mass/Vol] 7.6 g/dL 6.3 - 8.0 g/dL [facility] Sodium [Moles/Vol] 140 mmol/L 136 - 144 mmol/L [facility] Urea nitrogen [Mass/Vol] 16 mg/dL 9 - 24 mg/dL [facility] Albumin [Mass/Vol] 4.3 g/dL Normal 3.9-4.9 [facility] Comment on above: Order Comment: Speci men Type: BLOOD SPECIMENOrdering Facility: [facility] Address: [address] [place] [address] Performed By: #### 2 4323-8, 39590-3, 3083- ####[facility] [id number] [place] [address] [place] ALP [Catalytic activity/Vol] 238 U/L High 38-113 [facility] Comment on above: Order Comment: Speci men Type: BLOOD SPECIMENOrdering Facility: [facility] Address: [address] [place] [address] Performed By: #### 2 4323-8, 26419-3, 3083- ####[facility] [id number] [place] [address] [place] ALT [Catalytic activity/Vol] 18 U/L Normal 10-54 [facility] Comment on above: Order Comment: Speci men Type: BLOOD SPECIMENOrdering Facility: [facility] Address: [address] [place] [address] Performed By: #### 2 4323-8, , 3083-11 ####[facility] [place] [id number] [place] [address] [place] Anion gap [Moles/Vol] 11 mmol/L Normal 9-18 [facility] Comment on above: Order Comment: Speci men Type: BLOOD SPECIMENOrdering Facility: [facility] Address: [address] [place] [address] Performed By: #### 2 4323-8, 11046-1, 3083- ####[facility] [id number] [place] [address] [place] AST [Catalytic activity/Vol] 17 U/L Normal 14-40 [facility] Comment on above: Order Comment: Speci men Type: BLOOD SPECIMENOrdering Facility: [facility] Address: [address] [place] [address] Performed By: #### 2 4323-8, 44914-1, 3083-11 ####[facility] [id number] [place] [address] [place] Bilirubin [Mass/Vol] 0.2 mg/dL Normal 0.2-1.3 [facility] Comment on above: Order Comment: Speci men Type: BLOOD SPECIMENOrdering Facility: [facility] Address: [address] [place] [address] Performed By: #### 2 4323-8, , 3083-11 ####[facility] [id number] [place] [address] [place] Calcium [Mass/Vol] 9.9 mg/dL Normal 8.5-10.2 [facility] Comment on above: Order Comment: Speci men Type: BLOOD SPECIMENOrdering Facility: [facility] Address: [address] [place] [address] Performed By: #### 2 4323-8, , 3083-11 ####[facility] [id number] [place] [address] [place] Chloride [Moles/Vol] 104 mmol/L Normal 97-105 [facility] Comment on above: Order Comment: Speci men Type: BLOOD SPECIMENOrdering Facility: [facility] Address: [address] [place] [address] Performed By: #### 2 4323-8, , 3083-11 ####[facility] [id number] [place] [address] [place] CO2 [Moles/Vol] 25 mmol/L Normal 22-30 [facility] Comment on above: Order Comment: Speci men Type: BLOOD SPECIMENOrdering Facility: [facility] Address: [address] [place] [address] Performed By: #### 2 4323-8, , 3083-11 ####[facility] [id number] [place] [address] [place] Creatinine [Mass/Vol] 0.96 mg/dL Normal 0.73-1.22 [facility] Comment on above: Order Comment: Sara randle Type: BLOOD SPECIMENOrdering Facility: [facility] Address: [address] [place] [address] Performed By: #### 2 4323-8, , 3083-11 ####[facility] [id number] [place] [address] [place] Creatinine and Glomerular filtration rate.predicted panel (S/P/Bld) 87 mL/min/1.73m??? Normal >=60 [facility] Comment on above: Order Comment: Sara randle Type: BLOOD SPECIMENOrdering Facility: [facility] Address: [address] [place] [address] Result Comment: Carol mated Glomerular Filtration Rate [...] actual GFR. Performed By: #### 2 4323-8, , 3083-11 ####[facility] [id number] [place] [address] [place] Glucose [Mass/Vol] 93 mg/dL Normal 74-99 [facility] Comment on above: Order Comment: Sara randle Type: BLOOD SPECIMENOrdering Facility: [facility] Address: [address] [place] [address] Result Comment: The [place] Diabetes Association (ADA) provides guidance for cutoff [...] Standards of Medical Care in Diabetes 2016, [place] Diabetes [employer]. Diabetes Care. 2016.39(Suppl 1). Performed By: #### 2 4323-8, , 3083-11 ####[facility] [id number] [place] [address] [place] Potassium [Moles/Vol] 4.2 mmol/L Normal 3.7-5.1 [facility] Comment on above: Order Comment: Speci men Type: BLOOD SPECIMENOrdering Facility: [facility] Address: [address] [place] [address] Performed By: #### 2 432-8, , 3083-11 ####[facility] [id number] [place] [address] [place] Protein [Mass/Vol] 7.6 g/dL Normal 6.3-8.0 [facility] Comment on above: Order Comment: Speci men Type: BLOOD SPECIMENOrdering Facility: [facility] Address: [address] [place] [address] Performed By: #### 2 4323-8, , 3083-11 ####[facility] [id number] [place] [address] [place] Sodium [Moles/Vol] 140 mmol/L Normal 136-144 [facility] Comment on above: Order Comment: Speci men Type: BLOOD SPECIMENOrdering Facility: [facility] Address: [address] [place] [address] Performed By: #### 2 4323-8, , 3083-11 ####[facility] [id number] [place] [id number] [place] Urea nitrogen [Mass/Vol] 16 mg/dL Normal 9-24 [facility] Comment on above: Order Comment: Speci men Type: BLOOD SPECIMENOrdering Facility: [facility] Address: [address] [place] [address] Performed By: #### 2 4323-8, 24145-8, 3084-1 ####[facility] [id number] [place] [address] [place] LACTATE DEHYDROGENASEon 05-0 LDH [Catalytic activity/Vol] 228 U/L High 135 - 225 U/L [facility] LDH SerPl-cCncon 03-08-2024 LDH [Catalytic activity/Vol] 228 U/L High 135-225 [facility] Comment on above: Order Comment: Speci men Type: BLOOD SPECIMENOrdering Facility: [facility] Address: [address] [place] [address] Performed By: #### 2 532-0 ####[facility] [id number] [place] [address] [place] LDH [Catalytic activity/Vol] on 03-08-2024 Interpretation and review of laboratory results Abnormal [facility] MAGNESIUMon 03-08-2024 Magnesium [Mass/Vol] 2.1 mg/dL 1.7 - 2 .3 mg/dL [facility] Magnesium SerPl-mCncon 03-08 Magnesium [Mass/Vol] 2.1 mg/dL Normal 1.7-2.3 [facility] Comment on above: Order Comment: Speci men Type: BLOOD SPECIMENOrdering Facility: [facility] Address: [address] [place] [address] Performed By: #### 2 4323-8, 86299-7, 3084-1 ####[facility] [id number] [place] [address] [place] No Panel Informationon 03-08 Interpretation and review of laboratory results Normal [facility] PHOSPHORUS INORGANICon 03-08 Phosphate [Mass/Vol] 3.6 mg/dL 2.7 - 4 .8 mg/dL [facility] Phosphate SerPl-mCncon 03-08 Phosphate [Mass/Vol] 3.6 mg/dL Normal 2.7-4.8 [facility] Comment on above: Order Comment: Speci men Type: BLOOD SPECIMENOrdering Facility: [facility] Address: [address] [place] [address] Performed By: #### 2 777-1 ####[facility] [id number] [place] [address] [place] Phosphate [Mass/Vol]on 03-08 Interpretation and review of laboratory results Normal [facility] URIC ACIDon 03-08-2024 Urate [Mass/Vol] 6.5 mg/dL 4.0 - 8.1 mg/dL [facility] Urate [facility] Urate [Mass/Vol] 6.5 mg/dL Normal 4.0-8.1 [facility] Comment on above: Order Comment: Speci men Type: BLOOD SPECIMENOrdering Facility: [facility] Address: [address] [place] [address] Performed By: #### 2 4323-8, 84950-8, 3084-1 ####[facility] [id number] [place] [address] [place] NURSING PROGon 03-02-2024 NURSING PROG Normal [facility] CNPNon 03-01-2024 CNPN Normal [facility] CNPNon 02-26-2024 CNPN Normal [facility] CNPNon 02-25-2024 CNPN Normal [facility] ACTIVATED PARTIAL THROMBOPLA STIN TIMEon 02-24-2024 aPTT Coag (PPP) [Time] 24.0 s [facility] CBC W Auto Differential pane l (Bld)on 02-24-2024 Basophils (Bld) [#/Vol] 0.07 10*3/uL NINF [facility] Basophils/100 WBC (Bld) 1.2 % [facility] Differential cell count method Nom (Bld) Auto [facility] Eosinophils (Bld) [#/Vol] 0.27 10*3/uL [facility] Eosinophils/100 WBC (Bld) 4.5 % [facility] Erythrocyte distribution width (RBC) [Ratio] 13.2 % 11.5 - 15.0 % [facility] Hematocrit (Bld) [Volume fraction] 40.2 % 39.0 - 51.0 % [facility] Hemoglobin (Bld) [Mass/Vol] 13.3 g/dL 13.0 - 17.0 g/dL [facility] Immature granulocytes (Bld) [#/Vol] 0.03 10*3/uL [facility] Immature granulocytes/100 WBC (Bld) 0.5 % [facility] Interpretation and review of laboratory results Abnormal [facility] Lymphocytes (Bld) [#/Vol] 0.46 10*3/uL Low [facility] Lymphocytes/100 WBC (Bld) 7.6 % [facility] MCH (RBC) [Entitic mass] 31.1 pg 26.0 - 34.0 pg [facility] MCHC (RBC) [Mass/Vol] 33.1 g/dL 30.5 - 36.0 g/dL [facility] MCV (RBC) [Entitic vol] 93.9 fL 80.0 - 100.0 fL [facility] Monocytes (Bld) [#/Vol] 0.80 10*3/uL [facility] Monocytes/100 WBC (Bld) 13.3 % [facility] Neutrophils (Bld) [#/Vol] 4.39 10*3/uL [facility] Neutrophils/100 WBC (Bld) 72.9 % [facility] Nucleated RBC (Bld) [#/Vol] [facility] Nucleated RBC/100 WBC (Bld) [Ratio] 0.0 % /100 WBC [facility] Platelet mean volume (Bld) [Entitic vol] 9.8 fL 9.0 - 12.7 fL [facility] Platelets (Bld) [#/Vol] 243 10*3/uL [facility] RBC (Bld) [#/Vol] 4.28 10*6/uL 4.20 - 6.00 m/uL [facility] WBC (Bld) [#/Vol] 6.02 10*3/uL [facility] Basophils (Bld) [#/Vol] 0.07 10*3/uL Normal <0.11 [facility] Comment on above: Order Comment: Speci men Type: BLOOD SPECIMENOrdering Facility: [facility] Address: [address] [place] [address] Performed By: #### 5 7021-8 ####[facility] [place] [id number] [place] [address] [place] Basophils/100 WBC (Bld) 1.2 % Normal [facility] Comment on above: Order Comment: Speci men Type: BLOOD SPECIMENOrdering Facility: [facility] Address: [address] [place] [address] Performed By: #### 5 7021-8 ####[facility] [place] [id number] [place] [address] [place] Differential cell count method Nom (Bld) Auto Normal [facility] Comment on above: Order Comment: Speci men Type: BLOOD SPECIMENOrdering Facility: [facility] Address: [address] [place] [address] Performed By: #### 5 7021-8 ####[facility] [id number] [place] [address] [place] Eosinophils (Bld) [#/Vol] 0.27 10*3/uL Normal <0.46 [facility] Comment on above: Order Comment: Speci men Type: BLOOD SPECIMENOrdering Facility: [facility] Address: [address] [place] [address] Performed By: #### 5 7021-8 ####[facility] [id number] [place] [address] [place] Eosinophils/100 WBC (Bld) 4.5 % Normal [facility] Comment on above: Order Comment: Speci men Type: BLOOD SPECIMENOrdering Facility: [facility] Address: [address] [place] [address] Performed By: #### 5 7021-8 ####[facility] [id number] [place] [address] [place] Erythrocyte distribution width (RBC) [Ratio] 13.2 % Normal 11.5-15.0 [facility] Comment on above: Order Comment: Speci men Type: BLOOD SPECIMENOrdering Facility: [facility] Address: [address] [place] [address] Performed By: #### 5 7021-8 ####[facility] [id number] [place] [address] [place] Hematocrit (Bld) [Volume fraction] 40.2 % Normal 39.0-51.0 [facility] Comment on above: Order Comment: Speci men Type: BLOOD SPECIMENOrdering Facility: [facility] Address: [address] [place] [address] Performed By: #### 5 7021-8 ####[facility] [place] [id number] [place] [address] [place] Hemoglobin (Bld) [Mass/Vol] 13.3 g/dL Normal 13.0-17.0 [facility] Comment on above: Order Comment: Speci men Type: BLOOD SPECIMENOrdering Facility: [facility] Address: [address] [place] [address] Performed By: #### 5 7021-8 ####[facility] [place] [id number] [place] [address] [place] Immature granulocytes (Bld) [#/Vol] 0.03 10*3/uL Normal <0.10 [facility] Comment on above: Order Comment: Speci men Type: BLOOD SPECIMENOrdering Facility: [facility] Address: [address] [place] [address] Performed By: #### 5 7021-8 ####[facility] [place] [id number] [place] [address] [place] Immature granulocytes/100 WBC (Bld) 0.5 % Normal [facility] Comment on above: Order Comment: Speci men Type: BLOOD SPECIMENOrdering Facility: [facility] Address: [address] [place] [address] Performed By: #### 5 7021-8 ####[facility] [id number] [place] [address] [place] Lymphocytes (Bld) [#/Vol] 0.46 10*3/uL Low 1.00-4.00 [facility] Comment on above: Order Comment: Speci men Type: BLOOD SPECIMENOrdering Facility: [facility] Address: [address] [place] [address] Performed By: #### 5 7021-8 ####[facility] [id number] [place] [address] [place] Lymphocytes/100 WBC (Bld) 7.6 % Normal [facility] Comment on above: Order Comment: Speci men Type: BLOOD SPECIMENOrdering Facility: [facility] Address: [address] [place] [address] Performed By: #### 5 7021-8 ####[facility] [place] [id number] [place] [address] [place] MCH (RBC) [Entitic mass] 31.1 pg Normal 26.0-34.0 [facility] Comment on above: Order Comment: Speci men Type: BLOOD SPECIMENOrdering Facility: [facility] Address: [address] [place] [address] Performed By: #### 5 7021-8 ####[facility] [place] [id number] [place] [address] [place] MCHC (RBC) [Mass/Vol] 33.1 g/dL Normal 30.5-36.0 [facility] Comment on above: Order Comment: Speci men Type: BLOOD SPECIMENOrdering Facility: [facility] Address: [address] [place] [address] Performed By: #### 5 7021-8 ####[facility] [id number] [place] [address] [place] MCV (RBC) [Entitic vol] 93.9 fL Normal 80.0-100.0 [facility] Comment on above: Order Comment: Speci men Type: BLOOD SPECIMENOrdering Facility: [facility] Address: [address] [place] [address] Performed By: #### 5 7021-8 ####[facility] [id number] [place] [address] [place] Monocytes (Bld) [#/Vol] 0.80 10*3/uL Normal <0.87 [facility] Comment on above: Order Comment: Speci men Type: BLOOD SPECIMENOrdering Facility: [facility] Address: [address] [place] [address] Performed By: #### 5 7021-8 ####[facility] [id number] [place] [address] [place] Monocytes/100 WBC (Bld) 13.3 % Normal [facility] Comment on above: Order Comment: Speci men Type: BLOOD SPECIMENOrdering Facility: [facility] Address: [address] [place] [address] Performed By: #### 5 7021-8 ####[facility] [id number] [place] [address] [place] Neutrophils (Bld) [#/Vol] 4.39 10*3/uL Normal 1.45-7.50 [facility] Comment on above: Order Comment: Speci men Type: BLOOD SPECIMENOrdering Facility: [facility] Address: [address] [place] [address] Performed By: #### 5 7021-8 ####[facility] [id number] [place] [address] [place] Neutrophils/100 WBC (Bld) 72.9 % Normal [facility] Comment on above: Order Comment: Speci men Type: BLOOD SPECIMENOrdering Facility: [facility] Address: [address] [place] [address] Performed By: #### 5 7021-8 ####[facility] [place] [id number] [place] [address] [place] Nucleated RBC (Bld) [#/Vol] 10*3/uL Normal <0.01 [facility] Comment on above: Order Comment: Speci men Type: BLOOD SPECIMENOrdering Facility: [facility] Address: [address] [place] [address] Performed By: #### 5 7021-8 ####[facility] [id number] [place] [address] [place] Nucleated RBC/100 WBC (Bld) [Ratio] 0.0 /100 WBC Normal [facility] Comment on above: Order Comment: Speci men Type: BLOOD SPECIMENOrdering Facility: [facility] Address: [address] [place] [address] Performed By: #### 5 7021-8 ####[facility] [id number] [place] [address] [place] Platelet mean volume (Bld) [Entitic vol] 9.8 fL Normal 9.0-12.7 [facility] Comment on above: Order Comment: Speci men Type: BLOOD SPECIMENOrdering Facility: [facility] Address: [address] [place] [address] Performed By: #### 5 7021-8 ####[facility] [id number] [place] [address] [place] Platelets (Bld) [#/Vol] 243 10*3/uL Normal 150-400 [facility] Comment on above: Order Comment: Speci men Type: BLOOD SPECIMENOrdering Facility: [facility] Address: [address] [place] [address] Performed By: #### 5 7021-8 ####[facility] [id number] [place] [address] [place] RBC (Bld) [#/Vol] 4.28 10*6/uL Normal 4.20-6.00 [place] Comment on above: Order Comment: Speci men Type: BLOOD SPECIMENOrdering Facility: [facility] Address: [address] [place] [address] Performed By: #### 5 7021-8 ####[facility] [id number] [place] [address] [place] WBC (Bld) [#/Vol] 6.02 10*3/uL Normal 3.70-11.00 [place] Comment on above: Order Comment: Speci men Type: BLOOD SPECIMENOrdering Facility: [facility] Address: [address] [place] [address] Performed By: #### 5 7021-8 ####[facility] [id number] [place] [address] [place] CNNURSEon 02-24-2024 CNNURSE Normal [facility] Comprehensive metabolic 2000 panelon 02-24-2024 Albumin [Mass/Vol] 4.2 g/dL 3.9 - 4.9 g/dL [facility] ALP [Catalytic activity/Vol] 201 U/L High 38 - 113 U/L [facility] ALT [Catalytic activity/Vol] 18 U/L 10 - 54 U/L [facility] Anion gap [Moles/Vol] 11 mmol/L 9 - 18 mmol/L [facility] AST [Catalytic activity/Vol] 19 U/L 14 - 40 U/L [facility] Bilirubin [Mass/Vol] 0.2 mg/dL 0.2 - 1 .3 mg/dL [facility] Calcium [Mass/Vol] 9.6 mg/dL 8.5 - 10. 2 mg/dL [facility] Chloride [Moles/Vol] 107 mmol/L High 97 - 10 5 mmol/L [facility] CO2 [Moles/Vol] 23 mmol/L 22 - 30 mmol/L [facility] Creatinine [Mass/Vol] 0.94 mg/dL 0.73 - 1.22 mg/dL [facility] GFR/1.73 sq M.predicted among non-blacks MDRD (S/P/Bld) [Vol rate/Area] 89 mL/min/{1.73_m2} - PINF [facility] Comment on above: Estimated Glomerular Filtration Rate [...] 100 mg/dL High 74 - 99 mg/dL [facility] Comment on above: The [place] [employer] (ADA) provides guidance for [...] Standards of Medical Care in Diabetes 2016, [place] [employer]. Diabetes Care. 2016.39(Suppl 1). Interpretation and review of laboratory results Abnormal [facility] Potassium [Moles/Vol] 4.6 mmol/L 3.7 - 5.1 mmol/L [facility] Protein [Mass/Vol] 7.5 g/dL 6.3 - 8.0 g/dL [facility] Sodium [Moles/Vol] 141 mmol/L 136 - 144 mmol/L [facility] Urea nitrogen [Mass/Vol] 15 mg/dL 9 - 24 mg/dL [facility] Albumin [Mass/Vol] 4.2 g/dL Normal 3.9-4.9 [facility] Comment on above: Order Comment: Speci men Type: BLOOD SPECIMENOrdering Facility: [facility] Address: [address] [place] [address] Performed By: #### 2 4323-8, ####[facility] [id number] [place] [address] [place] ALP [Catalytic activity/Vol] 201 U/L High 38-113 [facility] Comment on above: Order Comment: Speci men Type: BLOOD SPECIMENOrdering Facility: [facility] Address: [address] [place] [address] Performed By: #### 2 4323-8, ####[facility] [id number] [place] [address] [place] ALT [Catalytic activity/Vol] 18 U/L Normal 10-54 [facility] Comment on above: Order Comment: Speci men Type: BLOOD SPECIMENOrdering Facility: [facility] Address: [address] [place] [address] Performed By: #### 2 4323-8, ####[facility] [id number] [place] [address] [place] Anion gap [Moles/Vol] 11 mmol/L Normal 9-18 [facility] Comment on above: Order Comment: Speci men Type: BLOOD SPECIMENOrdering Facility: [facility] Address: [address] [place] [address] Performed By: #### 2 4323-8, ####[facility] [id number] [place] [address] [place] AST [Catalytic activity/Vol] 19 U/L Normal 14-40 [facility] Comment on above: Order Comment: Speci men Type: BLOOD SPECIMENOrdering Facility: [facility] Address: [address] [place] [address] Performed By: #### 2 4323-8, ####[facility] [id number] [place] [address] [place] Bilirubin [Mass/Vol] 0.2 mg/dL Normal 0.2-1.3 [facility] Comment on above: Order Comment: Speci men Type: BLOOD SPECIMENOrdering Facility: [facility] Address: [address] [place] [address] Performed By: #### 2 432-8, ####[facility] [id number] [place] [address] [place] Calcium [Mass/Vol] 9.6 mg/dL Normal 8.5-10.2 [facility] Comment on above: Order Comment: Speci men Type: BLOOD SPECIMENOrdering Facility: [facility] Address: [address] [place] [address] Performed By: #### 2 432-8, ####[facility] [id number] [place] [address] [place] Chloride [Moles/Vol] 107 mmol/L High 97-105 [facility] Comment on above: Order Comment: Speci men Type: BLOOD SPECIMENOrdering Facility: [facility] Address: [address] [place] [address] Performed By: #### 2 4328, ####[facility] [id number] [place] [address] [place] CO2 [Moles/Vol] 23 mmol/L Normal 22-30 [facility] Comment on above: Order Comment: Speci men Type: BLOOD SPECIMENOrdering Facility: [facility] Address: [address] [place] [address] Performed By: #### 2 4323-8, ####[facility] [id number] [place] [address] [place] Creatinine [Mass/Vol] 0.94 mg/dL Normal 0.73-1.22 [facility] Comment on above: Order Comment: Sara randle Type: BLOOD SPECIMENOrdering Facility: [facility] Address: [address] [place] [address] Performed By: #### 2 4323-8, ####[facility] [id number] [address] Creatinine and Glomerular filtration rate.predicted panel (S/P/Bld) 89 mL/min/1.73m??? Normal >=60 [facility] Comment on above: Order Comment: Sara randle Type: BLOOD SPECIMENOrdering Facility: [facility] Address: [address] [place] [address] Result Comment: Carol mated Glomerular Filtration Rate [...] actual GFR. Performed By: #### 2 4323-8, ####[facility] [id number] [place] [address] [place] Glucose [Mass/Vol] 100 mg/dL High 74-99 [facility] Comment on above: Order Comment: Sara randle Type: BLOOD SPECIMENOrdering Facility: [facility] Address: [address] [place] [address] Result Comment: The [place] [employer] (ADA) provides guidance for cutoff [...] Standards of Medical Care in Diabetes 2016, [place] [employer]. Diabetes Care. 2016.39(Suppl 1). Performed By: #### 2 432-8, ####[facility] [id number] [place] [address] [place] Potassium [Moles/Vol] 4.6 mmol/L Normal 3.7-5.1 [facility] Comment on above: Order Comment: Speci men Type: BLOOD SPECIMENOrdering Facility: [facility] Address: [address] [place] [address] Performed By: #### 2 4328, ####[facility] [id number] [place] [address] [place] Protein [Mass/Vol] 7.5 g/dL Normal 6.3-8.0 [facility] Comment on above: Order Comment: Speci men Type: BLOOD SPECIMENOrdering Facility: [facility] Address: [address] [place] [address] Performed By: #### 2 43201-08, ####[facility] [id number] [place] [address] [place] Sodium [Moles/Vol] 141 mmol/L Normal 136-144 [facility] Comment on above: Order Comment: Speci men Type: BLOOD SPECIMENOrdering Facility: [facility] Address: [address] [place] [address] Performed By: #### 2 4323-, ####[facility] [id number] [place] [address] [place] Urea nitrogen [Mass/Vol] 15 mg/dL Normal 9-24 [facility] Comment on above: Order Comment: Speci men Type: BLOOD SPECIMENOrdering Facility: [facility] Address: [address] [place] [address] Performed By: #### 2 4323-8, 87268-0 ####[facility] [id number] [place] [address] [place] D dimer FEU PPP-mCncon 02-23 Fibrin D-dimer FEU (PPP) [Mass/Vol] 780 ng/mL FEU High <500 [facility] Comment on above: Order Comment: Speci men Type: BLOOD SPECIMENOrdering Facility: [facility] Address: [address] [place] [address] Performed By: #### 4 8065-7, 3255-7, 53529-8 ####[facility] [id number] [place] [address] [place] D-DIMERon 02-24-2024 Fibrin D-dimer FEU (PPP) [Mass/Vol] 780 High NINF [facility] ECG COMPLETEon 02-24-2024 ECG COMPLETE Normal [facility] ESR Westergren method (Bld) [Velocity]on 02-24-2024 ESR (Bld) [Velocity] 26 mm/h High [facility] Interpretation and review of laboratory results Abnormal [facility] ESR (Bld) [Velocity] 26 mm/h High 0-15 [facility] Comment on above: Order Comment: Speci men Type: BLOOD SPECIMENOrdering Facility: [facility] Address: [address] [place] [address] Performed By: #### 4 537-7 ####[facility] [id number] [place] [address] [place] FIBRINOGENon 02-24-2024 Fibrinogen Coag (PPP) [Mass/Vol] 432 mg/dL High 200 - 400 mg/dL [facility] Fibrin D-dimer FEU (PPP) [Ma ss/Vol]on 02-24-2024 D Dimer Age-related Cutoff 670 ng/mL FEU [facility] 500 ng/mL FEU is the D Dimer [...] M, et al. SANIA 2014 311:1117 and Van Paris N, et al. Donna Int Med 2016 165:253. [facility] D DIMER AGE-RELATED CUTOFF 670 ng/mL FEU Normal [facility] Comment on above: Order Comment: Speci men Type: BLOOD SPECIMENOrdering Facility: [facility] Address: [address] [place] [address] Performed By: #### 4 8065-7, 3255-7, 95076-3 ####[facility] [id number] [place] [id number] [place] Fibrinogen PPP-mCncon 2023 Fibrinogen Coag (PPP) [Mass/Vol] 432 mg/dL High 200-400 [facility] Comment on above: Order Comment: Speci razia Type: BLOOD SPECIMENOrdering Facility: [facility] Address: [address] [place] [address] Performed By: #### 4 8065-7, 3255-7, 64933-2 ####[facility] [id number] [place] [id number] [place] HBV surface Ab Ql (S)Ordered By: Neli Champagne on 02-24-2024 HBV surface Ab Qn (S) mIU/mL [facility] Comment on above: <8 mIU/mL: No serolo gical evidence of immunity to Hepatitis B Virus. >/= 8 to <12 mIU/mL: No serological evidence of immunity to Hepatitis B Virus. >/= 12 mIU/mL: Consistent with serological evidence of immunity to Hepatitis B Virus. [facility] HBV surface Ab Ql (S)on 02-02 HBV surface Ab Qn (S) <8.00 Normal [facility] Comment on above: Order Comment: Speci men Type: BLOOD SPECIMENOrdering Facility: [facility] Address: [address] [place] [address] Result Comment: <8 m IU/mL: No serological evidence of immunity to Hepatitis B Virus.>/= 8 to <12 mIU/mL: No serological evidence of immunity to Hepatitis B Virus.>/= 12 mIU/mL: Consistent with serological evidence of immunity to Hepatitis B Virus. Performed By: #### 2 2322-2 ####[facility] [id number] [place] [address] [place] HBV surface Ab Ser Qlon 02-02 HBV surface Ab Ql (S) Negative Normal [facility] Comment on above: Order Comment: Sara randle Type: BLOOD SPECIMENOrdering Facility: [facility] Address: [address] [place] [address] Result Comment: No s erological evidence of immunity to Hepatitis B Virus. Performed By: #### 2 2322-2 ####[facility] [id number] [place] [address] [place] HEPATITIS B SURFACE ANTIBODY Ordered By: Neli Champagne on 02-24-2024 HBV surface Ab Ql (S) Negative [facility] Comment on above: No serological evide nce of immunity to Hepatitis B Virus. IDM PANEL ADULTon 02-24-2024 ANTI-HBC Negative Normal Negative/N on-reactiv e [facility] Comment on above: Order Comment: Sara randle Type: BLOOD SPECIMENOrdering Facility: [facility] Address: [address] [place] [address] Performed By: #### I DMAD ####[facility] [id number] [place] [address] [place] ANTI-HCV Negative Normal Negative/N on-reactiv e [facility] Comment on above: Order Comment: Speci men Type: BLOOD SPECIMENOrdering Facility: [facility] Address: [address] [place] [address] Performed By: #### I DMAD ####[facility] [id number] [place] [address] [place] ANTI-HTLV I/II Negative Normal Negative/N on-reactiv e [facility] Comment on above: Order Comment: Speci men Type: BLOOD SPECIMENOrdering Facility: [facility] Address: [address] [place] [address] Performed By: #### I DMAD ####[facility] [id number] [place] [address] [place] CHAGAS Negative Normal Negative/N on-reactiv e [facility] Comment on above: Order Comment: Speci men Type: BLOOD SPECIMENOrdering Facility: [facility] Address: [address] [place] [address] Performed By: #### I DMAD ####[facility] [id number] [place] [address] [place] CMV Negative Normal Negative/N on-reactiv e [facility] Comment on above: Order Comment: Speci men Type: BLOOD SPECIMENOrdering Facility: [facility] Address: [address] [place] [address] Performed By: #### I DMAD ####[facility] [id number] [place] [address] [place] EXPIRATION OF IDM 03/25/2024 Normal [facility] Comment on above: Order Comment: Speci men Type: BLOOD SPECIMENOrdering Facility: [facility] Address: [address] [place] [address] Performed By: #### I DMAD ####[facility] [id number] [place] [address] [place] HBSAG Negative Normal Negative/N on-reactiv e [facility] Comment on above: Order Comment: Speci men Type: BLOOD SPECIMENOrdering Facility: [facility] Address: [address] [place] [address] Performed By: #### I DMAD ####[facility] [id number] [place] [address] [place] HBVNAT Negative Normal Negative/N on-reactiv e [facility] Comment on above: Order Comment: Speci men Type: BLOOD SPECIMENOrdering Facility: [facility] Address: [address] [place] [address] Performed By: #### I DMAD ####[facility] [id number] [place] [address] [place] HCVNAT Negative Normal Negative/N on-reactiv e [facility] Comment on above: Order Comment: Speci men Type: BLOOD SPECIMENOrdering Facility: [facility] Address: [address] [place] [address] Performed By: #### I DMAD ####[facility] [id number] [place] [address] [place] HIV 1+2 Ab Ql (S donor) Negative Normal Negative/N on-reactiv e [facility] Comment on above: Order Comment: Speci men Type: BLOOD SPECIMENOrdering Facility: [facility] Address: [address] [place] [address] Performed By: #### I DMAD ####[facility] [id number] [place] [address] [place] HIVNAT Negative Normal Negative/N on-reactiv e [facility] Comment on above: Order Comment: Speci men Type: BLOOD SPECIMENOrdering Facility: [facility] Address: [address] [place] [address] Performed By: #### I DMAD ####[facility] [id number] [place] [address] [place] STS Negative Normal Negative/N on-reactiv e [facility] Comment on above: Order Comment: Speci men Type: BLOOD SPECIMENOrdering Facility: [facility] Address: [address] [place] [address] Performed By: #### I DMAD ####[facility] [id number] [place] [address] [place] WNVNAT Negative Normal Negative/N on-reactiv e [facility] Comment on above: Order Comment: Speci men Type: BLOOD SPECIMENOrdering Facility: [facility] Address: [address] [place] [address] Performed By: #### I DMAD ####[facility] [id number] [place] [address] [place] IMMUNOGLOBULINS,IGG,IGA,IGMo n 02-24-2024 IgA [Mass/Vol] 175 mg/dL 70 - 400 mg/dL [facility] IgG [Mass/Vol] 1258 mg/dL 700 - 1600 mg/dL [facility] IgM [Mass/Vol] 15 mg/dL Low 40 - 230 mg/dL [facility] Interpretation and review of laboratory results Abnormal [facility] IgA [Mass/Vol] 175 mg/dL Normal 70-400 [facility] Comment on above: Order Comment: Speci men Type: BLOOD SPECIMENOrdering Facility: [facility] Address: [address] [place] [address] Performed By: #### S ERIMM ####[facility] [id number] [place] [address] [place] IgG [Mass/Vol] 1258 mg/dL Normal 700-1600 [facility] Comment on above: Order Comment: Speci men Type: BLOOD SPECIMENOrdering Facility: [facility] Address: [address] [place] [address] Performed By: #### S ERIMM ####[facility] [id number] [place] [address] [place] IgM [Mass/Vol] 15 mg/dL Low 40-230 [facility] Comment on above: Order Comment: Speci men Type: BLOOD SPECIMENOrdering Facility: [facility] Address: [address] [place] [address] Performed By: #### S ERIMM ####[facility] [id number] [place] [address] [place] LACTATE DEHYDROGENASEon 02-02 LDH [Catalytic activity/Vol] 205 U/L 135 - 225 U/L [facility] LDH SerPl-cCncon 02-24-2024 LDH [Catalytic activity/Vol] 205 U/L Normal 135-225 [facility] Comment on above: Order Comment: Speci men Type: BLOOD SPECIMENOrdering Facility: [facility] Address: [address] [place] [address] Performed By: #### 2 532-0 ####[facility] [id number] [place] [address] [place] LDH [Catalytic activity/Vol] on 02-24-2024 Interpretation and review of laboratory results Normal [facility] MAGNESIUMon 02-24-2024 Magnesium [Mass/Vol] 2.2 mg/dL 1.7 - 2 .3 mg/dL [facility] Magnesium SerPl-mCncon 02-23 Magnesium [Mass/Vol] 2.2 mg/dL Normal 1.7-2.3 [facility] Comment on above: Order Comment: Speci men Type: BLOOD SPECIMENOrdering Facility: [facility] Address: [address] [place] [address] Performed By: #### 2 4323-8, 16794-3 ####[facility] [place] [id number] [id number] [address] [place] Magnesium [Mass/Vol]on 02-23 Interpretation and review of laboratory results Normal [facility] No Panel Informationon 02-23 [facility] Interpretation and review of laboratory results Abnormal [facility] PT panel Coag (PPP)on 2023 INR Coag (PPP) [Relative time] 1.1 {INR} 0.9 - 1.3 [facility] Comment on above: Vitamin K Antagonist (VKA) Therapeutic Range: INR 2 to 3 (Target INR of 2.5) Note: For patients treated with VKA drugs, such as warfarin, the [place] [employer] 2012 Guideline recommends [...] to 3.5 (target INR of 3). Mike GH, et al. Chest 2012, 141:7S-47S Chelsie PETE et al. [facility] 2017, 70: 252-289 Interpretation and review of laboratory results Normal [facility] PT Coag (PPP) [Time] 11.3 s [facility] INR Coag (PPP) [Relative time] 1.1 {INR} Normal 0.9-1.3 [facility] Comment on above: Order Comment: Speci men Type: BLOOD SPECIMENOrdering Facility: [facility] Address: [address] [place] [address] Result Comment: Anca min K Antagonist (VKA) Therapeutic Range: INR 2 to 3 (Target INR of 2.5)Note: For patients treated with VKA drugs, such as warfarin, the [place] [employer] 2012 Guideline recommends [...] 2.5 to 3.5 (target INR of 3).Mike GH, et al. Chest 2012, 141:7S-47SNishimura RA, et al. [facility] 2017, 70: 252-289 Performed By: #### 3 4528-0 ####[facility] [id number] [place] [address] [place] PT Coag (PPP) [Time] 11.3 s Normal 9.7-13.0 [facility] Comment on above: Order Comment: Speci razia Type: BLOOD SPECIMENOrdering Facility: [facility] Address: [address] [place] [address] Performed By: #### 3 4528-0 ####[facility] [id number] [place] [address] [place] TYPE + SCREENon 02-24-2024 ABO group Nom (Bld) B [facility] Blood group antibody screen Ql Negative [facility] HIstorical Ab Scr Status Negative [facility] Rh Nom (Bld) Negative [facility] Type and Screen Expiration 02/27/2024 23:59 [facility] ABO B Normal [facility] Comment on above: Order Comment: Speci men Type: BLOOD SPECIMENOrdering Facility: [facility] Address: [address] [place] [address] Performed By: #### T SCR ####[facility] [id number] [address] [place] HISTORICAL AB SCR STATUS Negative Normal [facility] Comment on above: Order Comment: Speci men Type: BLOOD SPECIMENOrdering Facility: [facility] Address: [address] [place] [address] Performed By: #### T SCR ####[facility] [id number] [place] [address] [place] Rh Nom (Bld) Negative Normal [facility] Comment on above: Order Comment: Speci men Type: BLOOD SPECIMENOrdering Facility: [facility] Address: [address] [place] [address] Performed By: #### T SCR ####[facility]ANKCLIA [id number] [place] [address] [place] TYPE AND SCREEN EXPIRATION 02/27/2024 23:59 Normal [facility] Comment on above: Order Comment: Speci men Type: BLOOD SPECIMENOrdering Facility: [facility] Address: [address] [place] [address] Performed By: #### T SCR ####[facility] BANKCLIA [id number] [address] [place] aPTT Coag (PPP) [Time]on Interpretation and review of laboratory results Normal [facility] Unfractionated Hepar in Therapeutic Ranges: Standard Heparin [...] laboratory APTT reagent in use throughout the [facility]. [facility] aPTT PPPon 02-24-2024 aPTT Coag (PPP) [Time] 24.0 s Normal 23.0-32.4 [facility] Comment on above: Order Comment: Speci men Type: BLOOD SPECIMENOrdering Facility: [facility] Address: [address] [place] [address] Performed By: #### 4 8065-7, 3255-7, 33918-4 ####[facility] [id number] [facility] [id number] [address] [place] CNPNon 02-18-2024 CNPN Normal [facility] CNOVSPon 02-12-2024 CNOVSP Normal [facility] CNOVSPon 02-02-2024 CNOVSP Normal [facility] CNPTOUTREACHon 02-02-2024 CNPTOUTREACH Normal [facility] NM PET/CT SKULL-THIGH SUBQon 01-30-2024 NM PET/CT SKULL-THIGH SUBQ Invalid Interpretation Code [facility] CNPNon 01-29-2024 CNPN Normal [facility] Pathology Noteon 01-29-2024 Pathology Note [id number] Normal [facility] COMPREHENSIVE METABOLIC PANE Cheng 01-28-2024 Albumin [Mass/Vol] 4.2 g/dL Normal 3.5-5.0 [facility] Comment on above: Order Comment: [place] Performed By: #### C MPN, LDO, URICB #### [facility] (DEFAULT) [address] [address] ALP [Catalytic activity/Vol] 165 U/L High 32-126 [facility] Comment on above: Order Comment: [place] Performed By: #### C MPN, LDO, URICB #### [facility] (DEFAULT) [address] [address] ALT [Catalytic activity/Vol] 24 U/L Normal 10-52 [facility] Comment on above: Order Comment: [place] Performed By: #### C MPN, LDO, URICB #### U [facility] (DEFAULT) [address] [address] Anion gap [Moles/Vol] 13 mmol/L Normal 7-17 [facility] Comment on above: Order Comment: [place] Performed By: #### C MPN, LDO, URICB #### [facility] (DEFAULT) [address] [place] [address] AST [Catalytic activity/Vol] 22 U/L Normal 10-39 [facility] Comment on above: Order Comment: [place] Performed By: #### C MPN, LDO, URICB #### [facility] (DEFAULT) [address] [place] [address] Bilirubin [Mass/Vol] 0.4 mg/dL Normal <1.5 [facility] Comment on above: Order Comment: [place] Performed By: #### C MPN, LDO, URICB #### [facility] (DEFAULT) [address] [place] [address] Calcium [Mass/Vol] 9.6 mg/dL Normal 8.6-10.5 [facility] Comment on above: Order Comment: [place] Performed By: #### C MPN, LDO, URICB #### [facility] (DEFAULT) [address] [place] [address] Chloride [Moles/Vol] 107 mmol/L Normal 98-108 [facility] Comment on above: Order Comment: [place] Performed By: #### C MPN, LDO, URICB #### [facility] (DEFAULT) [address] [place] [address] CO2 [Moles/Vol] 23 mmol/L Normal 21-31 [facility] Comment on above: Order Comment: [place] Performed By: #### C MPN, LDO, URICB #### [facility] (DEFAULT) [address] [place] [address] Creatinine [Mass/Vol] 1.08 mg/dL Normal 0.70-1.30 [facility] Comment on above: Order Comment: [place] Performed By: #### C MPN, LDO, URICB #### [facility] (DEFAULT) [address] [place] [address] GFR/1.73 sq M.predicted among non-blacks MDRD (S/P/Bld) [Vol rate/Area] 75 mL/min/{1.73_m2} Normal >=60 [facility] Comment on above: Order Comment: [place] Result Comment: Repo rted eGFR is based on the CKD-EPI 2020 equation using creatinine, age, and sex. Performed By: #### C MPN, LDO, URICB #### U [facility] (DEFAULT) [address] [place] [address] Glucose [Mass/Vol] 135 mg/dL High 70-99 [facility] Comment on above: Order Comment: [place] Performed By: #### C MPN, LDO, URICB #### U [facility] (DEFAULT) [address] [place] [address]2801 Osmolality [Osmolality] 294 mosm/kg Normal 278-305 [facility] Comment on above: Order Comment: [place] Performed By: #### C MPN, LDO, URICB #### U [facility] (DEFAULT) [address] [place] [address] 40179 Potassium [Moles/Vol] 3.9 mmol/L Normal 3.5-5.0 [facility] Comment on above: Order Comment: [place] Performed By: #### C MPN, LDO, URICB #### U [facility] (DEFAULT) [address] [place] [address] 10802 Protein [Mass/Vol] 7.1 g/dL Normal 6.4-8.3 [facility] Comment on above: Order Comment: [place] Performed By: #### C MPN, LDO, URICB #### [facility] (DEFAULT) [address] [place] [address] 36956 Sodium [Moles/Vol] 139 mmol/L Normal 135-145 [facility] Comment on above: Order Comment: [place] Performed By: #### C MPN, LDO, URICB #### [facility] (DEFAULT) [address] [place] [address] 49886 Urea nitrogen [Mass/Vol] 15 mg/dL Normal 7-25 [facility] Comment on above: Order Comment: [place] Performed By: #### C MPN, LDO, URICB #### [facility] (DEFAULT) [address] [place] [address] Urea nitrogen/Creatinine [Mass ratio] 14 mg/mg Normal [facility] Comment on above: Order Comment: [place] Performed By: #### C MPN, LDO, URICB #### [facility] (DEFAULT) [address] [place] [address] Albumin [Mass/Vol] 4.2 g/dL 3.5 - 5.0 g/dL [facility] ALP [Catalytic activity/Vol] 165 U/L High 32 - 126 U/L [facility] ALT [Catalytic activity/Vol] 24 U/L 10 - 52 U/L [facility] Anion gap [Moles/Vol] 13 mmol/L 7 - 17 mmol/L [facility] AST [Catalytic activity/Vol] 22 U/L 10 - 39 U/L [facility] Bilirubin [Mass/Vol] 0.4 mg/dL NINF - 1.5 mg/dL [facility] Calcium [Mass/Vol] 9.6 mg/dL 8.6 - 10. 5 mg/dL [facility] Chloride [Moles/Vol] 107 mmol/L 98 - 10 8 mmol/L [facility] CO2 [Moles/Vol] 23 mmol/L 21 - 31 mmol/L [facility] Creatinine [Mass/Vol] 1.08 mg/dL 0.70 - 1.30 mg/dL [facility] eGFR, CKD-EPI, Male 76 - PINF [facility] Comment on above: Reported eGFR is bas ed on the CKD-EPI 2020 equation using creatinine, age, and sex. Glucose [Mass/Vol] 135 mg/dL High 70 - 99 mg/dL [facility] Osmolality Calc [Osmolality] 294 [facility] Potassium [Moles/Vol] 3.9 mmol/L 3.5 - 5.0 mmol/L [facility] Protein [Mass/Vol] 7.1 g/dL 6.4 - 8.3 g/dL [facility] Sodium [Moles/Vol] 139 mmol/L 135 - 145 mmol/L [facility] Urea nitrogen [Mass/Vol] 15 mg/dL 7 - 25 mg/dL [facility] Urea nitrogen/Creatinine [Mass ratio] 14 mg/mg [facility] Chronic hepatitis differenti ation between hepatitis B and C virus panelOrdered By: Nia Mixon on 01-28-2024 HBV core IgG+IgM Ql (S) Negative Negative [facility] HBV surface Ab IA Ql (S) Negative Negative [facility] HBV surface Ag Ql (S) Negative Negative [facility] HCV Ab Ql (S) Negative Negative [facility] Interpretation and review of laboratory results Normal [facility] HEPATITIS BATTERY, CHRONICon 01-28-2024 Hep B Core Ab,Total (IgG+IgM) Negative Normal Negative [facility] Comment on above: Order Comment: [place] Performed By: #### H EP3B #### [facility] (DEFAULT) [address] [place] [address] Hep B Surface Ab Negative Normal Negative [facility] Comment on above: Order Comment: [place] Performed By: #### H EP3B #### [facility] (DEFAULT) [address] [place] [address] Hepatitis B Surface Ag Negative Normal Negative [facility] Comment on above: Order Comment: [place] Performed By: #### H EP3B #### [facility] (DEFAULT) [address] [place] [address] Hepatitis C Antibody Negative Normal Negative [facility] Comment on above: Order Comment: [place] Performed By: #### H EP3B #### [facility] (DEFAULT) [address] [place] [address] 10919 HIV 1 AND 2 ANTIBODIES/P24 A NTIGENon 01-28-2024 HIV 1+2 Ab+HIV1 p24 Ag IA Ql Non-Reactive Non Reactive [facility] Interpretation and review of laboratory results Normal [facility] HIV-1/HIV-2 Ab With p24 Antigen Non-Reactive Normal Non Reactive [facility] Comment on above: Order Comment: [place] Performed By: #### L [id number] #### [facility] (DEFAULT) [address] [place] [address] 02215 LACTATE DEHYDROGENASEon 01-02 LD Total 177 U/L Normal 100-190 [facility] Comment on above: Order Comment: [place] Performed By: #### C MPN, LDO, URICB #### [facility] (DEFAULT) [address] [place] [address] 15453 Interpretation and review of laboratory results Normal [facility] LDH Lactate to pyruvate reaction [Catalytic activity/Vol] 177 U/L 100 - 190 U/L [facility] No Panel Informationon 01-27 Interpretation and review of laboratory results Abnormal [facility] URIC ACIDon 01-28-2024 Urate [Mass/Vol] 7.4 mg/dL High 3.5-7.0 [facility] Comment on above: Order Comment: [place] Performed By: #### C MPN, LDO, URICB #### [facility] (DEFAULT) [address] [place] [address] 63965 Urate [Mass/Vol] 7.4 mg/dL High 3.5 - 7.0 mg/dL [facility] CNPNon 01-27-2024 CNPN Normal [facility] CNCOon 01-22-2024 CNCO Letter Text Normal [facility] CNCOon 01-21-2024 CNCO Letter Text Normal [facility] CNPNon 01-20-2024 CNPN Normal [facility] CNPNon 01-14-2024 CNPN Normal [facility] Pathology Noteon 01-13-2024 Pathology Note [id number]#1.00TIFF Normal [facility] Pathology Note [id number]#1.00TIFF Normal [facility] Pathology Note [id number]#1.00TIFF Normal [facility] CNOVSPon 01-12-2024 CNOVSP Normal [facility] CNOVSPon 01-05-2024 CNOVSP Normal [facility] Pathology Noteon 12-31-2023 Pathology Note [id number]#1.00TIFF Normal [facility] CNOVon 12-30-2023 CNOV Normal [facility] CNPNon 12-29-2023 CNPN Normal [facility] B2 Microglob SerPl-mCncon Fjjk-6-Uuvauiowjcjee [Mass/Vol] 2.4 ug/mL Normal <3.1 [facility] Comment on above: Order Comment: Speci men Type: BLOOD SPECIMENOrdering Facility: [facility] Address: [address] [place] [address] Result Comment: Beta -2 Microglobulin test is performed using the [employer] immunoturbidimetric method. Results obtained with different methods or kits cannot be used interchangeably. Performed By: #### 1 952-1 ####[facility] LABCLIA [id number] [place] [address] [place] CBC W Auto Differential pane l (Bld)on 12-25-2023 Basophils (Bld) [#/Vol] 0.05 10*3/uL <0.11 k/uL [facility] Basophils/100 WBC (Bld) 0.9 % [facility] Differential cell count method Nom (Bld) Auto [facility] Eosinophils (Bld) [#/Vol] 0.18 10*3/uL <0.46 k/uL [facility] Eosinophils/100 WBC (Bld) 3.2 % [facility] Erythrocyte distribution width (RBC) [Ratio] 13.3 % 11.5 - 15.0 % [facility] Hematocrit (Bld) [Volume fraction] 40.3 % 39.0 - 51.0 % [facility] Hemoglobin (Bld) [Mass/Vol] 14.1 g/dL 13.0 - 17.0 g/dL [facility] Immature granulocytes (Bld) [#/Vol] 0.03 10*3/uL <0.10 k/uL [facility] Immature granulocytes/100 WBC (Bld) 0.5 % [facility] Lymphocytes (Bld) [#/Vol] 0.61 10*3/uL Low 1.00 - 4.00 k/uL [facility] Lymphocytes/100 WBC (Bld) 10.9 % [facility] MCH (RBC) [Entitic mass] 31.8 pg 26.0 - 34.0 pg [facility] MCHC (RBC) [Mass/Vol] 35.0 g/dL 30.5 - 36.0 g/dL [facility] MCV (RBC) [Entitic vol] 91.0 fL 80.0 - 100.0 fL [facility] Monocytes (Bld) [#/Vol] 1.06 10*3/uL High <0.87 k/uL [facility] Monocytes/100 WBC (Bld) 19.0 % [facility] Neutrophils (Bld) [#/Vol] 3.66 10*3/uL 1.45 - 7.50 k/uL [facility] Neutrophils/100 WBC (Bld) 65.5 % [facility] Nucleated RBC (Bld) [#/Vol] <0.01 k/uL [facility] Nucleated RBC/100 WBC (Bld) [Ratio] 0.0 /100 WBC [facility] Platelet mean volume (Bld) [Entitic vol] 9.5 fL 9.0 - 12.7 fL [facility] Platelets (Bld) [#/Vol] 216 10*3/uL 150 - 400 k/uL [facility] RBC (Bld) [#/Vol] 4.43 10*6/uL 4.20 - 6.00 m/uL [facility] WBC (Bld) [#/Vol] 5.59 10*3/uL 3.70 - 11.00 k/uL [facility] Basophils (Bld) [#/Vol] 0.05 10*3/uL Normal <0.11 [facility] Comment on above: Order Comment: Speci men Type: BLOOD SPECIMENOrdering Facility: [facility] Address: [address] [place] [address] Performed By: #### 5 7021-8 ####[facility] LABCLIA [id number] [place] [address] Basophils/100 WBC (Bld) 0.9 % Normal [facility] Comment on above: Order Comment: Speci men Type: BLOOD SPECIMENOrdering Facility: [facility] Address: [address] [place] [address] Performed By: #### 5 7021-8 ####[facility] LABCLIA [id number] [place] [address] Differential cell count method Nom (Bld) Auto Normal [facility] Comment on above: Order Comment: Speci men Type: BLOOD SPECIMENOrdering Facility: [facility] Address: [address] [place] [address] Performed By: #### 5 7021-8 ####[facility] LABCLIA [id number] [place] [address] Eosinophils (Bld) [#/Vol] 0.18 10*3/uL Normal <0.46 [facility] Comment on above: Order Comment: Speci men Type: BLOOD SPECIMENOrdering Facility: [facility] Address: [address] [place] [address] Performed By: #### 5 7021-8 ####[facility] LABCLIA [id number] [place] [address] Eosinophils/100 WBC (Bld) 3.2 % Normal [facility] Comment on above: Order Comment: Speci men Type: BLOOD SPECIMENOrdering Facility: [facility] Address: [address] [place] [address] Performed By: #### 5 7021-8 ####[facility] LABCLIA [id number] [place] [address] Erythrocyte distribution width (RBC) [Ratio] 13.3 % Normal 11.5-15.0 [facility] Comment on above: Order Comment: Speci men Type: BLOOD SPECIMENOrdering Facility: [facility] Address: [address] [place] [address] Performed By: #### 5 7021-8 ####[facility] LABCLIA [id number] [place] [address] Hematocrit (Bld) [Volume fraction] 40.3 % Normal 39.0-51.0 [facility] Comment on above: Order Comment: Speci men Type: BLOOD SPECIMENOrdering Facility: [facility] Address: [address] [place] [address] Performed By: #### 5 7021-8 ####[facility] LABCLIA [id number] [place] [address] Hemoglobin (Bld) [Mass/Vol] 14.1 g/dL Normal 13.0-17.0 [facility] Comment on above: Order Comment: Speci men Type: BLOOD SPECIMENOrdering Facility: [facility] Address: [address] [place] [address] Performed By: #### 5 7021-8 ####[facility] LABCLIA [id number] [place] [address] Immature granulocytes (Bld) [#/Vol] 0.03 10*3/uL Normal <0.10 [facility] Comment on above: Order Comment: Speci men Type: BLOOD SPECIMENOrdering Facility: [facility] Address: [address] [place] [address] Performed By: #### 5 7021-8 ####[facility] LABCLIA [id number] [place] [address] Immature granulocytes/100 WBC (Bld) 0.5 % Normal [facility] Comment on above: Order Comment: Speci men Type: BLOOD SPECIMENOrdering Facility: [facility] Address: [address] [place] [address] Performed By: #### 5 7021-8 ####[facility] LABCLIA [id number] [place] [address] Lymphocytes (Bld) [#/Vol] 0.61 10*3/uL Low 1.00-4.00 [facility] Comment on above: Order Comment: Speci men Type: BLOOD SPECIMENOrdering Facility: [facility] Address: [address] [place] [address] Performed By: #### 5 7021-8 ####[facility] LABCLIA [id number] [place] [address] Lymphocytes/100 WBC (Bld) 10.9 % Normal [facility] Comment on above: Order Comment: Speci men Type: BLOOD SPECIMENOrdering Facility: [facility] Address: [address] [place] [address] Performed By: #### 5 7021-8 ####[facility] LABCLIA [id number] [place] [address] MCH (RBC) [Entitic mass] 31.8 pg Normal 26.0-34.0 [facility] Comment on above: Order Comment: Speci men Type: BLOOD SPECIMENOrdering Facility: [facility] Address: [address] [place] [address] Performed By: #### 5 7021-8 ####[facility] LABCLIA [id number] [place] [address] MCHC (RBC) [Mass/Vol] 35.0 g/dL Normal 30.5-36.0 [facility] Comment on above: Order Comment: Speci men Type: BLOOD SPECIMENOrdering Facility: [facility] Address: [address] [place] [address] Performed By: #### 5 7021-8 ####[facility] LABIA [id number] [place] [address] MCV (RBC) [Entitic vol] 91.0 fL Normal 80.0-100.0 [facility] Comment on above: Order Comment: Speci men Type: BLOOD SPECIMENOrdering Facility: [facility] Address: [address] [place] [address] Performed By: #### 5 7021-8 ####[facility] LABCLIA [id number] [place] [address] Monocytes (Bld) [#/Vol] 1.06 10*3/uL High <0.87 [facility] Comment on above: Order Comment: Speci men Type: BLOOD SPECIMENOrdering Facility: [facility] Address: [address] [place] [address] Performed By: #### 5 7021-8 ####[facility] LABCLIA [id number] [place] [address] Monocytes/100 WBC (Bld) 19.0 % Normal [facility] Comment on above: Order Comment: Speci men Type: BLOOD SPECIMENOrdering Facility: [facility] Address: [address] [place] [address] Performed By: #### 5 7021-8 ####[facility] LABCLIA [id number] [place] [address] Neutrophils (Bld) [#/Vol] 3.66 10*3/uL Normal 1.45-7.50 [facility] Comment on above: Order Comment: Speci men Type: BLOOD SPECIMENOrdering Facility: [facility] Address: [address] [place] [address] Performed By: #### 5 7021-8 ####[facility] LABCLIA [id number] [place] [address] Neutrophils/100 WBC (Bld) 65.5 % Normal [facility] Comment on above: Order Comment: Speci men Type: BLOOD SPECIMENOrdering Facility: [facility] Address: [address] [place] [address] Performed By: #### 5 7021-8 ####[facility] LABCLIA [id number] [place] [address] Nucleated RBC (Bld) [#/Vol] 10*3/uL Normal <0.01 [facility] Comment on above: Order Comment: Speci men Type: BLOOD SPECIMENOrdering Facility: [facility] Address: [address] [place] [address] Performed By: #### 5 7021-8 ####[facility] LABCLIA [id number] [place] [address] Nucleated RBC/100 WBC (Bld) [Ratio] 0.0 /100 WBC Normal [facility] Comment on above: Order Comment: Speci men Type: BLOOD SPECIMENOrdering Facility: [facility] Address: [address] [place] [address] Performed By: #### 5 7021-8 ####[facility] LABCLIA [id number] [place] [address] Platelet mean volume (Bld) [Entitic vol] 9.5 fL Normal 9.0-12.7 [facility] Comment on above: Order Comment: Speci men Type: BLOOD SPECIMENOrdering Facility: [facility] Address: [address] [place] [address] Performed By: #### 5 7021-8 ####[facility] LABCLIA [id number] [place] [address] Platelets (Bld) [#/Vol] 216 10*3/uL Normal 150-400 [facility] Comment on above: Order Comment: Speci men Type: BLOOD SPECIMENOrdering Facility: [facility] Address: [address] [place] [address] Performed By: #### 5 7021-8 ####[facility] LABCLIA [id number] [place] [address] RBC (Bld) [#/Vol] 4.43 10*6/uL Normal 4.20-6.00 [place] Comment on above: Order Comment: Speci men Type: BLOOD SPECIMENOrdering Facility: [facility] Address: [facility] [place] [address] Performed By: #### 5 7021-8 ####[facility] LABCLIA [id number] [place] [address] WBC (Bld) [#/Vol] 5.59 10*3/uL Normal 3.70-11.00 [facility] Comment on above: Order Comment: Speci men Type: BLOOD SPECIMENOrdering Facility: [facility] Address: [address] [place] [address] Performed By: #### 5 7021-8 ####[facility] LABIA [id number] [place] [address] CNOVSPon 12-25-2023 CNOVSP Normal [facility] metabolic 2000 panelon 12-25-2023 Albumin [Mass/Vol] 4.4 g/dL 3.9 - 4.9 g/dL [facility] ALP [Catalytic activity/Vol] 204 U/L High 38 - 113 U/L [facility] ALT [Catalytic activity/Vol] 30 U/L 10 - 54 U/L [facility] Anion gap [Moles/Vol] 10 mmol/L 9 - 18 mmol/L [facility] AST [Catalytic activity/Vol] 22 U/L 14 - 40 U/L [facility] Bilirubin [Mass/Vol] 0.3 mg/dL 0.2 - 1 .3 mg/dL [facility] Calcium [Mass/Vol] 10.2 mg/dL 8.5 - 10. 2 mg/dL [facility] Chloride [Moles/Vol] 101 mmol/L 97 - 10 5 mmol/L [facility] CO2 [Moles/Vol] 25 mmol/L 22 - 30 mmol/L [facility] Creatinine [Mass/Vol] 1.10 mg/dL 0.73 - 1.22 mg/dL [facility] Estimated Glomerular Filtration Rate 74 mL/min/1.73m >=60 mL/min/1.7 3m [facility] Glucose [Mass/Vol] 96 mg/dL 74 - 99 mg/dL [facility] Potassium [Moles/Vol] 4.1 mmol/L 3.7 - 5.1 mmol/L [facility] Protein [Mass/Vol] 7.6 g/dL 6.3 - 8.0 g/dL [facility] Sodium [Moles/Vol] 136 mmol/L 136 - 144 mmol/L [facility] Urea nitrogen [Mass/Vol] 16 mg/dL 9 - 24 mg/dL [facility] Albumin [Mass/Vol] 4.4 g/dL Normal 3.9-4.9 [facility] Comment on above: Order Comment: Speci men Type: BLOOD SPECIMENOrdering Facility: [facility] Address: [address] [place] [address] Performed By: #### 2 532-0, 51268-1 ####[facility] LABIA [id number] [place] [address] ALP [Catalytic activity/Vol] 204 U/L High 38-113 [facility] Comment on above: Order Comment: Speci men Type: BLOOD SPECIMENOrdering Facility: [facility] Address: [address] [place] [address] Performed By: #### 2 532-0, 39039-8 ####[facility] LABCLIA [id number] [place] [address] ALT [Catalytic activity/Vol] 30 U/L Normal 10-54 [facility] Comment on above: Order Comment: Speci men Type: BLOOD SPECIMENOrdering Facility: [facility] Address: [address] [place] [address] Performed By: #### 2 532-0, ####[facility] LABIA [id number] [place] [address] Anion gap [Moles/Vol] 10 mmol/L Normal 9-18 [facility] Comment on above: Order Comment: Speci men Type: BLOOD SPECIMENOrdering Facility: [facility] Address: [address] [place] [address] Performed By: #### 2 532-0, 80956-1 ####[facility] LABCLIA [id number] [place] [address] AST [Catalytic activity/Vol] 22 U/L Normal 14-40 [facility] Comment on above: Order Comment: Speci men Type: BLOOD SPECIMENOrdering Facility: [facility] Address: [address] [place] [address] Performed By: #### 2 532-0, ####[facility] LABCLIA [id number] [place] [address] Bilirubin [Mass/Vol] 0.3 mg/dL Normal 0.2-1.3 [facility] Comment on above: Order Comment: Speci men Type: BLOOD SPECIMENOrdering Facility: [facility] Address: [address] [place] [address] Performed By: #### 2 532-0, ####[facility] LABIA [id number] [place] [address] Calcium [Mass/Vol] 10.2 mg/dL Normal 8.5-10.2 [facility] Comment on above: Order Comment: Speci men Type: BLOOD SPECIMENOrdering Facility: [facility] Address: [address] [place] [address] Performed By: #### 2 532-0, ####[facility] LABIA [id number] [place] [address] Chloride [Moles/Vol] 101 mmol/L Normal 97-105 [facility] Comment on above: Order Comment: Speci men Type: BLOOD SPECIMENOrdering Facility: [facility] Address: [address] [place] [address] Performed By: #### 2 532-0, ####[facility] LABCLIA [id number] [place] [address] CO2 [Moles/Vol] 25 mmol/L Normal 22-30 [facility] Comment on above: Order Comment: Speci men Type: BLOOD SPECIMENOrdering Facility: [facility] Address: [address] [place] [address] Performed By: #### 2 532-0, 67266-1 ####[facility] LABCLIA [id number] [place] [address] Creatinine [Mass/Vol] 1.10 mg/dL Normal 0.73-1.22 [facility] Comment on above: Order Comment: Speci men Type: BLOOD SPECIMENOrdering Facility: [facility] Address: [address] [place] [address] Performed By: #### 2 532-0, 19326-8 ####[facility] LABCLIA [id number] [place] [address] Creatinine and Glomerular filtration rate.predicted panel (S/P/Bld) 74 mL/min/1.73m??? Normal >=60 [facility] Comment on above: Order Comment: Speci men Type: BLOOD SPECIMENOrdering Facility: [facility] Address: [address] [place] [address] Result Comment: Carol mated Glomerular Filtration Rate [...] actual GFR. Performed By: #### 2 532-0, 80899-6 ####[facility] LABCLIA [id number] [place] [address] Glucose [Mass/Vol] 96 mg/dL Normal 74-99 [facility] Comment on above: Order Comment: Speci men Type: BLOOD SPECIMENOrdering Facility: [facility] Address: [address] [id number] Result Comment: The [place] [employer] (ADA) provides guidance for cutoff [...] Standards of Medical Care in Diabetes 2016, [place] [employer]. Diabetes Care. 2016.39(Suppl 1). Performed By: #### 2 532-0, 79359-5 ####[facility] LABCLIA [id number] [place] [address] Potassium [Moles/Vol] 4.1 mmol/L Normal 3.7-5.1 [facility] Comment on above: Order Comment: Speci men Type: BLOOD SPECIMENOrdering Facility: [facility] Address: [address] [place] [address] Performed By: #### 2 532-0, 55926-7 ####[facility] LABIA [id number] [place] [address] Protein [Mass/Vol] 7.6 g/dL Normal 6.3-8.0 [facility] Comment on above: Order Comment: Speci men Type: BLOOD SPECIMENOrdering Facility: [facility] Address: [address] [place] [address] Performed By: #### 2 532-0, 64400-6 ####[facility] LABCLIA [id number] [place] [address] Sodium [Moles/Vol] 136 mmol/L Normal 136-144 [facility] Comment on above: Order Comment: Speci men Type: BLOOD SPECIMENOrdering Facility: [facility] Address: [address] [place] [address] Performed By: #### 2 532-0, 74050-6 ####[facility] LABCLIA [id number] [place] [address] Urea nitrogen [Mass/Vol] 16 mg/dL Normal 9-24 [facility] Comment on above: Order Comment: Speci men Type: BLOOD SPECIMENOrdering Facility: [facility] Address: [address] [place] [address] Performed By: #### 2 532-0, 71955-8 ####[facility] LABCLIA [id number] [place] [address] LDH SerPl-cCncon 12-25-2023 LDH [Catalytic activity/Vol] 182 U/L Normal 135-225 [facility] Comment on above: Order Comment: Speci men Type: BLOOD SPECIMENOrdering Facility: [facility] Address: [address] [place] [address] Performed By: #### 2 532-0, 71042-9 ####[facility] LABCLIA [id number] [place] [address] Laboratory - Chemistry and C hemistry - challengeon 12-25-2023 LDH [Catalytic activity/Vol] 182 U/L 135 - 225 U/L [facility] Ambulatory Visit Summaryon 0 12-24-2023 Ambulatory Visit Summary KATIA SHAIKH :1955 Visit Date:12/24/2023 Ambulatory Visit Instructions Your [...] for choosing us for your care. Normal [facility] FISH FOR AGGRESSIVE B-CELL L Vik 12-24-2023 FISH FOR AGGRESSIVE B-CELL LYMPHOMA Normal [facility] Comment on above: Order Comment: Speci men Type: FORMALIN-FIXED PARAFFIN-EMBEDDED TISSUE SPECIMENOrdering Facility: AP Outside Review Address: , , Result Comment: FISH for Aggressive B-cell Lymphoma TissueLaboratory Accession Number: [id number]: [id number]/Part ID: [id number] ([id number])Sample Type: FFPETSample Description: Right inguinal lymph [...] hybridization analysis was performedusing the following probes ([employer], [place], [place]): LSI MYCdual color, break-apart rearrangement probes, LSI IGH/MYC/JFP5ljgoudzo, dual fusion probes, LSI BCL2 dual color, break-apartrearrangement probes, and LSI BCL6 dual color, break-apartrearrangement probes.DISCLAIMER:This test was developed and its performance characteristics determinedby the [facility]'s [facility] [place] ([facility]). It has not been cleared or approved bythe FDA. [facility] is regulated under CLIA as qualified to perform high-complexity testing. This test is used for clinical purposes. It shouldnot be regarded as investigational or for research.Interpretation performed at [facility], [address] [place] [address]. [place] Number: [id number] reviewed by Chiquita Clemente MD, PhD Performed By: #### L [id number] ####[facility] LABCLIA [id number] [address] [place]#### FABCEL ####[facility] LIMSCLIA [id number] [address] [place] General Surgery Office/Clini c [...] LOFTON, TERRELL Kirk Only if needed [address] [place] [address]- Additional Instructions: Problem List/Past Medical [...] inactivated - Not Given Patient Refuses Normal [facility] Comment on above: Result Comment: Elec tronically Signed By: MIGUEL LOFTON, Chiquita Mas\Date and Time Signed: 12/24/23 20:33 EST OUTSIDE SURG PATH SLIDE REVI EWon 12-24-2023 ADDENDUM 1: Normal [facility] Comment on above: Order Comment: Speci men Type: FORMALIN-FIXED PARAFFIN-EMBEDDED TISSUE SPECIMENOrdering Facility: AP Outside Review Address: , , Result Comment: Aggr essive B-Cell Neoplasm Biomarker [id number] ICC Diagnosis: Diffuse large B-cell lymphoma, NOSBiomarker Results:Cell of origin (Landry tent finisher): Germinal centerMYC expression (% tumor cells by IHC): 20%BCL2 expression (% tumor cells by IHC): 90%Ki67 expression (% tumor cells by IHC): 70-80%BCL2 translocation (FISH): NegativeBCL6 translocation (FISH): PositiveMYC translocation (FISH): Negative IGH::MYC translocation (FISH): NegativeAddendum electronically signed by Chioma Pineda DO on 01/08/2024 at 8:48 AM Performed By: #### L [id number] ####[facility] LABCLIA [id number] [address] [place]#### FABCEL ####[facility] LIMSCLIA [id number] [place] [address] [place] CASE REPORT Normal [facility] Comment on above: Order Comment: Speci men Type: FORMALIN-FIXED PARAFFIN-EMBEDDED TISSUE SPECIMENOrdering Facility: AP Outside Review Address: , , Result Comment: Surg ica Pathology Report Case: [id number] Provider: Michael Boykin MD Collected: 12/24/2023 08:50 AMOrdering Location: [facility] Received: 12/24/2023 08:49 AM [facility] LaboratoryPathologist: Chioma Pineda, DOSpecimen: SLIDE(S), 26 SLIDES [id number] Performed By: #### L [id number] ####[facility] LABCLIA [id number] [address] [place]#### FABCEL ####[facility] LIMSCLIA [id number] [address] [address] [place] DIAGNOSIS COMMENT Normal [facility] Comment on above: Order [...] been determined by the performing laboratory within [facility]???s [facility] [place] ([facility], [facility], [facility], [facility], [facility], [facility], or [facility]) in a manner consistent with CLIA requirements. One or more of these tests have not been cleared or approved by the FDA. [facility] is regulated under CLIA as qualified to perform high-complexity testing. These tests are used for clinical purposes. They should not be regarded as investigational or for research. Positive and negative controls stain appropriately. Performed By: #### L [id number] ####[facility] LABCLIA [id number] [place] [id number] [place]#### FABCEL ####[facility] LIMSCLIA [id number] [address] [address] [place] FINAL DIAGNOSIS Normal [facility] Comment on above: Order Comment: Speci men Type: FORMALIN-FIXED PARAFFIN-EMBEDDED TISSUE SPECIMENOrdering Facility: AP Outside Review Address: , , Result Comment: Outs remi slides from [facility] [place], [place], labeled [id number], collected 12/17/2023:A-B. Right inguinal lymph node, excisional biopsies:-Aggressive large B-cell lymphoma, favor germinal center immunophenotype Performed By: #### L [id number] ####[facility] LABCLIA [id number] [place] [address] [place]#### FABCEL ####[facility] LIMSCLIA [id number] [place] [id number] [place] FINAL PERFORMING LAB Normal [facility] Comment on above: Order Comment: Speci men Type: FORMALIN-FIXED PARAFFIN-EMBEDDED TISSUE SPECIMENOrdering Facility: AP Outside Review Address: , , Result Comment: Diag nostic interpretation performed at [facility], [address] [facility] [place] [address] CLIA# [id number] Director: Lon Kaiser M.D. Performed By: #### L [id number] ####[facility] LABCLIA [id number] [address] [address] [place]#### FABCEL ####[facility] LIMSCLIA [id number] [place] [id number] [place] MICROSCOPIC DESCRIPTION Normal [facility] Comment on above: Order Comment: [...] deeper sections of tissue block A5 at [facility]. The lymphoma cells are positive for CD10 (minor subset, in the best preserved area) and MUM1, and are negative for MYC, S100, and JAVID by in situ hybridization. Performed By: #### L [id number] ####[facility] LABCLIA [id number] [address]#### FABCEL ####[facility] LIMSCLIA [id number] [address] Pathology Noteon 12-24-2023 Pathology Note [id number]#1.00TIFF Normal [facility] Operative Reporton Operative Report [id number]#1.00TIFF Normal [facility] 12-22-2023 CNPN Normal [facility] Pathology Noteon 12-22-2023 Pathology Note [id number]#1.00TIFF Normal [facility] 12-15-2023 [facility] Normal [facility] ECG 12-Leadon 12-15-2023 ECG 12-Lead [id number]#1.00TIFF Normal [facility] Consent for Procedure/Surger yon 12-11-2023 Consent for Procedure/Surgery [id number]#1.00TIFF [facility] Ambulatory Visit Summaryon 0 12-09-2023 Ambulatory Visit Summary YUE SHAIKHGROVER Terrazas :1955 Visit Date:12/09/2023 Ambulatory Visit Instructions Your Care Team Attending Physician - MIGUEL LOFTON, Chiquita Martins Primary Care Physician - EMELIA GONZALEZ MD Referring Physician - Ashutosh LOFTON, Michael Martins [...] for choosing us for your care. Normal [facility] RAD - Nuclear Medicine Repor ton 12-09-2023 RAD - Nuclear Medicine Report [id number]#1.00TIFF Normal [facility] RAD - Ultrasound Reporton RAD - Ultrasound Report [id number]#1.00TIFF Normal [facility] CNPNon 12-01-2023 CNPN Normal [facility] RAD - Ultrasound Reporton RAD - Ultrasound Report [id number]#1.00TIFF Normal [facility] CNPNon 11-24-2023 CNPN Normal [facility] Physician Referralon 024 Physician Referral [id number]#1.00TIFF Normal [facility] CNOVSPon 11-20-2023 CNOVSP Normal [facility] CNPNon 11-20-2023 CNPN Normal [facility] CNPNon 11-19-2023 CNPN Normal [facility] CBC W Auto Differential pane l (Bld)on 11-18-2023 Basophils (Bld) [#/Vol] 0.05 10*3/uL Normal <0.11 [facility] Comment on above: Order Comment: Speci men Type: BLOOD SPECIMENOrdering Facility: [facility] Address: [address] [place] [address] Performed By: #### 5 7021-8 ####[facility] LABCLIA [id number] [place] [address] Basophils/100 WBC (Bld) 1.5 % Normal [facility] Comment on above: Order Comment: Speci men Type: BLOOD SPECIMENOrdering Facility: [facility] Address: [address] [place] [address] Performed By: #### 5 7021-8 ####[facility] LABCLIA [id number] [place] [address] Differential cell count method Nom (Bld) Auto Normal [facility] Comment on above: Order Comment: Speci men Type: BLOOD SPECIMENOrdering Facility: [facility] Address: [address] [place] [address] Performed By: #### 5 7021-8 ####[facility] LABIA [id number] [place] [address] Eosinophils (Bld) [#/Vol] 0.16 10*3/uL Normal <0.46 [facility] Comment on above: Order Comment: Speci men Type: BLOOD SPECIMENOrdering Facility: [facility] Address: [address] [place] [address] Performed By: #### 5 7021-8 ####[facility] LABCLIA [id number] [place] [address] Eosinophils/100 WBC (Bld) 4.8 % Normal [facility] Comment on above: Order Comment: Speci men Type: BLOOD SPECIMENOrdering Facility: [facility] Address: [address] [place] [address] Performed By: #### 5 7021-8 ####[facility] LABCLIA [id number] [place] [address] Erythrocyte distribution width (RBC) [Ratio] 14.1 % Normal 11.5-15.0 [facility] Comment on above: Order Comment: Speci men Type: BLOOD SPECIMENOrdering Facility: [facility] Address: [address] [place] [address] Performed By: #### 5 7021-8 ####[facility] LABCLIA [id number] [place] [address] Hematocrit (Bld) [Volume fraction] 41.5 % Normal 39.0-51.0 [facility] Comment on above: Order Comment: Speci men Type: BLOOD SPECIMENOrdering Facility: [facility] Address: [address] [place] [address] Performed By: #### 5 7021-8 ####[facility] LABCLIA [id number] [place] [address] Hemoglobin (Bld) [Mass/Vol] 14.6 g/dL Normal 13.0-17.0 [facility] Comment on above: Order Comment: Speci men Type: BLOOD SPECIMENOrdering Facility: [facility] Address: [address] [place] [address] Performed By: #### 5 7021-8 ####[facility] LABCLIA [id number] [place] [address] Immature granulocytes (Bld) [#/Vol] 10*3/uL Normal <0.10 [facility] Comment on above: Order Comment: Speci men Type: BLOOD SPECIMENOrdering Facility: [facility] Address: [address] [place] [address] Performed By: #### 5 7021-8 ####[facility] LABCLIA [id number] [place] [address] Immature granulocytes/100 WBC (Bld) 0.6 % Normal [facility] Comment on above: Order Comment: Speci men Type: BLOOD SPECIMENOrdering Facility: [facility] Address: [address] [place] [address] Performed By: #### 5 7021-8 ####[facility] LABCLIA [id number] [place] [address] Lymphocytes (Bld) [#/Vol] 0.32 10*3/uL Low 1.00-4.00 [facility] Comment on above: Order Comment: Speci men Type: BLOOD SPECIMENOrdering Facility: [facility] Address: [address] [place] [address] Performed By: #### 5 7021-8 ####[facility] LABCLIA [id number] [place] [address] Lymphocytes/100 WBC (Bld) 9.5 % Normal [facility] Comment on above: Order Comment: Speci men Type: BLOOD SPECIMENOrdering Facility: [facility] Address: [address] [place] [address] Performed By: #### 5 7021-8 ####[facility] LABCLIA [id number] [place] [address] MCH (RBC) [Entitic mass] 31.9 pg Normal 26.0-34.0 [facility] Comment on above: Order Comment: Speci men Type: BLOOD SPECIMENOrdering Facility: [facility] Address: [address] [place] [address] Performed By: #### 5 7021-8 ####[facility] LABCLIA [id number] [place] [address] MCHC (RBC) [Mass/Vol] 35.2 g/dL Normal 30.5-36.0 [facility] Comment on above: Order Comment: Speci men Type: BLOOD SPECIMENOrdering Facility: [facility] Address: [address] [place] [address] Performed By: #### 5 7021-8 ####[facility] LABCLIA [id number] [place] [address] MCV (RBC) [Entitic vol] 90.8 fL Normal 80.0-100.0 [facility] Comment on above: Order Comment: Speci men Type: BLOOD SPECIMENOrdering Facility: [facility] Address: [address] [place] [address] Performed By: #### 5 7021-8 ####[facility] LABCLIA [id number] [place] [address] Monocytes (Bld) [#/Vol] 0.62 10*3/uL Normal <0.87 [facility] Comment on above: Order Comment: Speci men Type: BLOOD SPECIMENOrdering Facility: [facility] Address: [address] [place] [address] Performed By: #### 5 7021-8 ####[facility] LABCLIA [id number] [place] [address] Monocytes/100 WBC (Bld) 18.5 % Normal [facility] Comment on above: Order Comment: Speci men Type: BLOOD SPECIMENOrdering Facility: [facility] Address: [address] [place] [address] Performed By: #### 5 7021-8 ####[facility] LABCLIA [id number] [place] [address] Neutrophils (Bld) [#/Vol] 2.19 10*3/uL Normal 1.45-7.50 [facility] Comment on above: Order Comment: Speci men Type: BLOOD SPECIMENOrdering Facility: [facility] Address: [address] [place] [address] Performed By: #### 5 7021-8 ####[facility] LABCLIA [id number] [place] [address] Neutrophils/100 WBC (Bld) 65.1 % Normal [facility] Comment on above: Order Comment: Speci men Type: BLOOD SPECIMENOrdering Facility: [facility] Address: [address] [place] [address] Performed By: #### 5 7021-8 ####[facility] LABCLIA [id number] [place] [address] Nucleated RBC (Bld) [#/Vol] 10*3/uL Normal <0.01 [facility] Comment on above: Order Comment: Speci men Type: BLOOD SPECIMENOrdering Facility: [facility] Address: [address] [place] [address] Performed By: #### 5 7021-8 ####[facility] LABCLIA [id number] [place] [address] Nucleated RBC/100 WBC (Bld) [Ratio] 0.0 /100 WBC Normal [facility] Comment on above: Order Comment: Speci men Type: BLOOD SPECIMENOrdering Facility: [facility] Address: [address] [place] [address] Performed By: #### 5 7021-8 ####[facility] LABIA [id number] [place] [address] Platelet mean volume (Bld) [Entitic vol] 9.5 fL Normal 9.0-12.7 [facility] Comment on above: Order Comment: Speci men Type: BLOOD SPECIMENOrdering Facility: [facility] Address: [address] [place] [address] Performed By: #### 5 7021-8 ####[facility] LABCLIA [id number] [place] [address] Platelets (Bld) [#/Vol] 184 10*3/uL Normal 150-400 [facility] Comment on above: Order Comment: Speci men Type: BLOOD SPECIMENOrdering Facility: [facility] Address: [address] [place] [address] Performed By: #### 5 7021-8 ####[facility] LABIA [id number] [place] [address] RBC (Bld) [#/Vol] 4.57 10*6/uL Normal 4.20-6.00 [place] Comment on above: Order Comment: Speci men Type: BLOOD SPECIMENOrdering Facility: [facility] Address: [address] [place] [address] Performed By: #### 5 7021-8 ####[facility] LABIA [id number] [place] [address] WBC (Bld) [#/Vol] 3.36 10*3/uL Low 3.70-11.00 [place] Comment on above: Order Comment: Speci men Type: BLOOD SPECIMENOrdering Facility: [facility] Address: [address] [place] [address] Performed By: #### 5 7021-8 ####[facility] LABIA [id number] [place] [address] Comprehensive metabolic 2000 panelon 11-18-2023 Albumin [Mass/Vol] 4.5 g/dL Normal 3.9-4.9 [facility] Comment on above: Order Comment: Speci men Type: BLOOD SPECIMENOrdering Facility: [facility] Address: [address] [place] [address] Performed By: #### 3 084-1, 01084-7 ####[facility] LABIA [id number] [place] [address] ALP [Catalytic activity/Vol] 171 U/L High 38-113 [facility] Comment on above: Order Comment: Speci men Type: BLOOD SPECIMENOrdering Facility: [facility] Address: [address] [place] [address] Performed By: #### 3 084-1, ####[facility] LABCLIA [id number] [place] [address] ALT [Catalytic activity/Vol] 19 U/L Normal 10-54 [facility] Comment on above: Order Comment: Speci men Type: BLOOD SPECIMENOrdering Facility: [facility] Address: [address] [place] [address] Performed By: #### 3 084-1, ####[facility] LABCLIA [id number] [place] [address] Anion gap [Moles/Vol] 11 mmol/L Normal 9-18 [facility] Comment on above: Order Comment: Speci men Type: BLOOD SPECIMENOrdering Facility: [facility] Address: [address] [place] [address] Performed By: #### 3 084-1, ####[facility] LABCLIA [id number] [place] [address] AST [Catalytic activity/Vol] 21 U/L Normal 14-40 [facility] Comment on above: Order Comment: Speci men Type: BLOOD SPECIMENOrdering Facility: [facility] Address: [address] [place] [address] Performed By: #### 3 084-1, ####[facility] LABCLIA [id number] [place] [address] Bilirubin [Mass/Vol] 0.2 mg/dL Normal 0.2-1.3 [facility] Comment on above: Order Comment: Speci men Type: BLOOD SPECIMENOrdering Facility: [facility] Address: [address] [place] [address] Performed By: #### 3 084-1, 14480-6 ####[facility] LABCLIA [id number] [place] [address] Calcium [Mass/Vol] 9.8 mg/dL Normal 8.5-10.2 [facility] Comment on above: Order Comment: Speci men Type: BLOOD SPECIMENOrdering Facility: [facility] Address: [address] [place] [address] Performed By: #### 3 084-1, ####[facility] LABCLIA [id number] [place] [address] Chloride [Moles/Vol] 107 mmol/L High 97-105 [facility] Comment on above: Order Comment: Speci men Type: BLOOD SPECIMENOrdering Facility: [facility] Address: [address] [place] [address] Performed By: #### 3 084-1, ####[facility] LABCLIA [id number] [place] [address] CO2 [Moles/Vol] 25 mmol/L Normal 22-30 [facility] Comment on above: Order Comment: Speci men Type: BLOOD SPECIMENOrdering Facility: [facility] Address: [address] [place] [address] Performed By: #### 3 084-1, 33279-1 ####[facility] LABCLIA [id number] [place] [address] Creatinine [Mass/Vol] 0.96 mg/dL Normal 0.73-1.22 [facility] Comment on above: Order Comment: Speci men Type: BLOOD SPECIMENOrdering Facility: [facility] Address: [address] [place] [address] Performed By: #### 3 084-1, 40031-1 ####[facility] LABCLIA [id number] [place] [address] Creatinine and Glomerular filtration rate.predicted panel (S/P/Bld) 87 mL/min/1.73m??? Normal >=60 [facility] Comment on above: Order Comment: Speci men Type: BLOOD SPECIMENOrdering Facility: [facility] Address: [address] [place] [address] Result Comment: Carol mated Glomerular Filtration Rate [...] actual GFR. Performed By: #### 3 084-1, 70369-9 ####[facility] LABCLIA [id number] [place] [address] Glucose [Mass/Vol] 94 mg/dL Normal 74-99 [facility] Comment on above: Order Comment: Sara randle Type: BLOOD SPECIMENOrdering Facility: [facility] Address: [address] [place] [address] Result Comment: The [place] [employer] Association (ADA) provides guidance for cutoff [...] Standards of Medical Care in Diabetes 2016, [place] [employer]. Diabetes Care. 2016.39(Suppl 1). Performed By: #### 3 084-1, 05286-7 ####[facility] LABCLIA [id number] [place] [address] Potassium [Moles/Vol] 4.2 mmol/L Normal 3.7-5.1 [facility] Comment on above: Order Comment: Sara randle Type: BLOOD SPECIMENOrdering Facility: [facility] Address: [address] [place] [address] Performed By: #### 3 084-1, 38134-2 ####[facility] LABCLIA [id number] [place] [address] Protein [Mass/Vol] 7.3 g/dL Normal 6.3-8.0 [facility] Comment on above: Order Comment: Speci men Type: BLOOD SPECIMENOrdering Facility: [facility] Address: [address] [place] [address] Performed By: #### 3 084-1, 43222-4 ####[facility] LABCLIA [id number] [place] [address] Sodium [Moles/Vol] 143 mmol/L Normal 136-144 [facility] Comment on above: Order Comment: Speci men Type: BLOOD SPECIMENOrdering Facility: [facility] Address: [address] [place] [address] Performed By: #### 3 084-1, ####[facility] LABCLIA [id number] [place] [address] Urea nitrogen [Mass/Vol] 15 mg/dL Normal 9-24 [facility] Comment on above: Order Comment: Speci men Type: BLOOD SPECIMENOrdering Facility: [facility] Address: [address] [place] [address] Performed By: #### 3 084-1, ####[facility] LABCLIA [id number] [place] [address] NM PET/CT SKULL-THIGH SUBQon 4 NM PET/CT SKULL-THIGH SUBQ Normal [facility] Urate SerPl-mCncon 4 Urate [Mass/Vol] 6.7 mg/dL Normal 4.0-8.1 [facility] Comment on above: Order Comment: Speci men Type: BLOOD SPECIMENOrdering Facility: [facility] Address: [address] [place] [address] Performed By: #### 3 084-1, ####[facility] LABCLIA [id number] [place] [address] CBC W Auto Differential pane l (Bld)on 10-28-2023 Basophils (Bld) [#/Vol] 0.06 10*3/uL Normal <0.11 [facility] Comment on above: Order Comment: Speci men Type: BLOOD SPECIMENOrdering Facility: [facility] Address: [address] [place] [address] Performed By: #### 5 7021-8 ####[facility] LABCLIA [id number] [place] [address] Basophils/100 WBC (Bld) 1.4 % Normal [facility] Comment on above: Order Comment: Speci men Type: BLOOD SPECIMENOrdering Facility: [facility] Address: [address] [place] [address] Performed By: #### 5 7021-8 ####[facility] LABCLIA [id number] [place] [address] Differential cell count method Nom (Bld) Auto Normal [facility] Comment on above: Order Comment: Speci men Type: BLOOD SPECIMENOrdering Facility: [facility] Address: [address] [place] [address] Performed By: #### 5 7021-8 ####[facility] LABCLIA [id number] [place] [address] Eosinophils (Bld) [#/Vol] 0.23 10*3/uL Normal <0.46 [facility] Comment on above: Order Comment: Speci men Type: BLOOD SPECIMENOrdering Facility: [facility] Address: [address] [place] [address] Performed By: #### 5 7021-8 ####[facility] LABCLIA [id number] [place] [address] Eosinophils/100 WBC (Bld) 5.2 % Normal [facility] Comment on above: Order Comment: Speci men Type: BLOOD SPECIMENOrdering Facility: [facility] Address: [address] [place] [address] Performed By: #### 5 7021-8 ####[facility] LABCLIA [id number] [place] [address] Erythrocyte distribution width (RBC) [Ratio] 14.0 % Normal 11.5-15.0 [facility] Comment on above: Order Comment: Speci men Type: BLOOD SPECIMENOrdering Facility: [facility] Address: [address] [place] [address] Performed By: #### 5 7021-8 ####[facility] LABCLIA [id number] [place] [address] Hematocrit (Bld) [Volume fraction] 39.6 % Normal 39.0-51.0 [facility] Comment on above: Order Comment: Speci men Type: BLOOD SPECIMENOrdering Facility: [facility] Address: [address] [place] [address] Performed By: #### 5 7021-8 ####[facility] LABCLIA [id number] [place] [address] Hemoglobin (Bld) [Mass/Vol] 13.8 g/dL Normal 13.0-17.0 [facility] Comment on above: Order Comment: Speci men Type: BLOOD SPECIMENOrdering Facility: [facility] Address: [address] [place] [address] Performed By: #### 5 7021-8 ####[facility] LABCLIA [id number] [place] [address] Immature granulocytes (Bld) [#/Vol] 0.04 10*3/uL Normal <0.10 [facility] Comment on above: Order Comment: Speci men Type: BLOOD SPECIMENOrdering Facility: [facility] Address: [address] [place] [address] Performed By: #### 5 7021-8 ####[facility] LABCLIA [id number] [place] [address] Immature granulocytes/100 WBC (Bld) 0.9 % Normal [facility] Comment on above: Order Comment: Speci men Type: BLOOD SPECIMENOrdering Facility: [facility] Address: [address] [place] [address] Performed By: #### 5 7021-8 ####[facility] LABCLIA [id number] [place] [address] Lymphocytes (Bld) [#/Vol] 0.46 10*3/uL Low 1.00-4.00 [facility] Comment on above: Order Comment: Speci men Type: BLOOD SPECIMENOrdering Facility: [facility] Address: [address] [place] [address] Performed By: #### 5 7021-8 ####[facility] LABCLIA [id number] [place] [address] Lymphocytes/100 WBC (Bld) 10.5 % Normal [facility] Comment on above: Order Comment: Speci men Type: BLOOD SPECIMENOrdering Facility: [facility] Address: [address] [place] [address] Performed By: #### 5 7021-8 ####[facility] LABCLIA [id number] [place] [address] MCH (RBC) [Entitic mass] 30.8 pg Normal 26.0-34.0 [facility] Comment on above: Order Comment: Speci men Type: BLOOD SPECIMENOrdering Facility: [facility] Address: [address] [place] [address] Performed By: #### 5 7021-8 ####[facility] LABCLIA [id number] [place] [address] MCHC (RBC) [Mass/Vol] 34.8 g/dL Normal 30.5-36.0 [facility] Comment on above: Order Comment: Speci men Type: BLOOD SPECIMENOrdering Facility: [facility] Address: [address] [place] [address] Performed By: #### 5 7021-8 ####[facility] LABCLIA [id number] [place] [address] MCV (RBC) [Entitic vol] 88.4 fL Normal 80.0-100.0 [facility] Comment on above: Order Comment: Speci men Type: BLOOD SPECIMENOrdering Facility: [facility] Address: [address] [place] [address] Performed By: #### 5 7021-8 ####[facility] LABCLIA [id number] [place] [address] Monocytes (Bld) [#/Vol] 0.82 10*3/uL Normal <0.87 [facility] Comment on above: Order Comment: Speci men Type: BLOOD SPECIMENOrdering Facility: [facility] Address: [address] [place] [address] Performed By: #### 5 7021-8 ####[facility] LABCLIA [id number] [place] [address] Monocytes/100 WBC (Bld) 18.7 % Normal [facility] Comment on above: Order Comment: Speci men Type: BLOOD SPECIMENOrdering Facility: [facility] Address: [address] [place] [address] Performed By: #### 5 7021-8 ####[facility] LABCLIA [id number] [place] [address] Neutrophils (Bld) [#/Vol] 2.78 10*3/uL Normal 1.45-7.50 [facility] Comment on above: Order Comment: Speci men Type: BLOOD SPECIMENOrdering Facility: [facility] Address: [address] [place] [address] Performed By: #### 5 7021-8 ####[facility] LABCLIA [id number] [place] [address] Neutrophils/100 WBC (Bld) 63.3 % Normal [facility] Comment on above: Order Comment: Speci men Type: BLOOD SPECIMENOrdering Facility: [facility] Address: [address] [place] [address] Performed By: #### 5 7021-8 ####[facility] LABCLIA [id number] [place] [address] Nucleated RBC (Bld) [#/Vol] 10*3/uL Normal <0.01 [facility] Comment on above: Order Comment: Speci men Type: BLOOD SPECIMENOrdering Facility: [facility] Address: [address] [place] [address] Performed By: #### 5 7021-8 ####[facility] LABCLIA [id number] [place] [address] Nucleated RBC/100 WBC (Bld) [Ratio] 0.0 /100 WBC Normal [facility] Comment on above: Order Comment: Speci men Type: BLOOD SPECIMENOrdering Facility: [facility] Address: [address] [place] [address] Performed By: #### 5 7021-8 ####[facility] LABCLIA [id number] [place] [address] Platelet mean volume (Bld) [Entitic vol] 10.0 fL Normal 9.0-12.7 [facility] Comment on above: Order Comment: Speci men Type: BLOOD SPECIMENOrdering Facility: [facility] Address: [address] [place] [address] Performed By: #### 5 7021-8 ####[facility] LABCLIA [id number] [place] [address] Platelets (Bld) [#/Vol] 165 10*3/uL Normal 150-400 [facility] Comment on above: Order Comment: Speci men Type: BLOOD SPECIMENOrdering Facility: [facility] Address: [address] [place] [address] Performed By: #### 5 7021-8 ####[facility] LABCLIA [id number] [place] [address] RBC (Bld) [#/Vol] 4.48 10*6/uL Normal 4.20-6.00 [place] Comment on above: Order Comment: Speci men Type: BLOOD SPECIMENOrdering Facility: [facility] Address: [address] [place] [address] Performed By: #### 5 7021-8 ####[facility] LABIA [id number] [place] [address] WBC (Bld) [#/Vol] 4.39 10*3/uL Normal 3.70-11.00 [place] Comment on above: Order Comment: Speci men Type: BLOOD SPECIMENOrdering Facility: [facility] Address: [address] [place] [address] Performed By: #### 5 7021-8 ####[facility] LABIA [id number] [place] [address] CNOVSPon 10-28-2023 CNOVSP Normal [facility] metabolic 2000 panelon 10-28-2023 Albumin [Mass/Vol] 4.2 g/dL Normal 3.9-4.9 [facility] Comment on above: Order Comment: Speci men Type: BLOOD SPECIMENOrdering Facility: [facility] Address: [address] [place] [address] Performed By: #### 2 4323-8 ####[facility] LABIA [id number] [place] [address] ALP [Catalytic activity/Vol] 163 U/L High 38-113 [facility] Comment on above: Order Comment: Speci men Type: BLOOD SPECIMENOrdering Facility: [facility] Address: [address] [place] [address] Performed By: #### 2 4323-8 ####[facility] LABIA [id number] [place] [address] ALT [Catalytic activity/Vol] 19 U/L Normal 10-54 [facility] Comment on above: Order Comment: Speci men Type: BLOOD SPECIMENOrdering Facility: [facility] Address: [address] [place] [address] Performed By: #### 2 4323-8 ####[facility] LABCLIA [id number] [place] [address] Anion gap [Moles/Vol] 15 mmol/L Normal 9-18 [facility] Comment on above: Order Comment: Speci men Type: BLOOD SPECIMENOrdering Facility: [facility] Address: [address] [place] [address] Performed By: #### 2 4323-8 ####[facility] LABCLIA [id number] [place] [address] AST [Catalytic activity/Vol] 19 U/L Normal 14-40 [facility] Comment on above: Order Comment: Speci men Type: BLOOD SPECIMENOrdering Facility: [facility] Address: [address] [place] [address] Performed By: #### 2 4323-8 ####[facility] LABCLIA [id number] [place] [address] Bilirubin [Mass/Vol] 0.3 mg/dL Normal 0.2-1.3 [facility] Comment on above: Order Comment: Speci men Type: BLOOD SPECIMENOrdering Facility: [facility] Address: [address] [place] [address] Performed By: #### 2 4323-8 ####[facility] LABCLIA [id number] [place] [address] Calcium [Mass/Vol] 9.7 mg/dL Normal 8.5-10.2 [facility] Comment on above: Order Comment: Speci men Type: BLOOD SPECIMENOrdering Facility: [facility] Address: [address] [place] [address] Performed By: #### 2 4323-8 ####[facility] LABCLIA [id number] [place] [address] Chloride [Moles/Vol] 104 mmol/L Normal 97-105 [facility] Comment on above: Order Comment: Speci men Type: BLOOD SPECIMENOrdering Facility: [facility] Address: [address] [place] [address] Performed By: #### 2 4323-8 ####[facility] LABCLIA [id number] [place] [address] CO2 [Moles/Vol] 21 mmol/L Low 22-30 [facility] Comment on above: Order Comment: Speci men Type: BLOOD SPECIMENOrdering Facility: [facility] Address: [address] [place] [address] Performed By: #### 2 4323-8 ####[facility] LABCLIA [id number] [place] [address] Creatinine [Mass/Vol] 0.96 mg/dL Normal 0.73-1.22 [facility] Comment on above: Order Comment: Speci men Type: BLOOD SPECIMENOrdering Facility: [facility] Address: [address] [place] [address] Performed By: #### 2 4323-8 ####[facility] LABCLIA [id number] [place] [address] Creatinine and Glomerular filtration rate.predicted panel (S/P/Bld) 87 mL/min/1.73m??? Normal >=60 [facility] Comment on above: Order Comment: Speci men Type: BLOOD SPECIMENOrdering Facility: [facility] Address: [address] [place] [address] Result Comment: Carol mated Glomerular Filtration Rate [...] actual GFR. Performed By: #### 2 4323-8 ####[facility] LABCLIA [id number] [place] [address] Glucose [Mass/Vol] 103 mg/dL High 74-99 [facility] Comment on above: Order Comment: Speci men Type: BLOOD SPECIMENOrdering Facility: [facility] Address: [address] [place], [place] [address] Result Comment: The [place] [employer] (ADA) provides guidance for cutoff [...] Standards of Medical Care in Diabetes 2016, [place] [employer]. Diabetes Care. 2016.39(Suppl 1). Performed By: #### 2 4323-8 ####[facility] LABCLIA [id number] [place] [address] Potassium [Moles/Vol] 4.3 mmol/L Normal 3.7-5.1 [facility] Comment on above: Order Comment: Speci men Type: BLOOD SPECIMENOrdering Facility: [facility] Address: [address] [place] [address] Performed By: #### 2 4323-8 ####[facility] LABCLIA [id number] [place] [address] Protein [Mass/Vol] 7.1 g/dL Normal 6.3-8.0 [facility] Comment on above: Order Comment: Speci men Type: BLOOD SPECIMENOrdering Facility: [facility] Address: [address] [place] [address] Performed By: #### 2 4323-8 ####[facility] LABCLIA [id number] [place] [address] Sodium [Moles/Vol] 140 mmol/L Normal 136-144 [facility] Comment on above: Order Comment: Speci men Type: BLOOD SPECIMENOrdering Facility: [facility] Address: [address] [place] [address] Performed By: #### 2 4323-8 ####[facility] LABCLIA [id number] [place] [address] Urea nitrogen [Mass/Vol] 15 mg/dL Normal 9-24 [facility] Comment on above: Order Comment: Speci men Type: BLOOD SPECIMENOrdering Facility: [facility] Address: [address] [place] [address] Performed By: #### 2 4323-8 ####[facility] LABCLIA [id number] [place] [address] CNPNon 10-23-2023 CNPN Normal [facility] CBC W Auto Differential pane l (Bld)on 09-30-2023 Basophils (Bld) [#/Vol] 0.06 10*3/uL <0.11 k/uL [facility] Basophils/100 WBC (Bld) 1.1 % [facility] Differential cell count method Nom (Bld) Auto [facility] Eosinophils (Bld) [#/Vol] 0.24 10*3/uL <0.46 k/uL [facility] Eosinophils/100 WBC (Bld) 4.4 % [facility] Erythrocyte distribution width (RBC) [Ratio] 14.6 % 11.5 - 15.0 % [facility] Hematocrit (Bld) [Volume fraction] 40.7 % 39.0 - 51.0 % [facility] Hemoglobin (Bld) [Mass/Vol] 14.1 g/dL 13.0 - 17.0 g/dL [facility] Immature granulocytes (Bld) [#/Vol] 0.07 10*3/uL <0.10 k/uL [facility] Immature granulocytes/100 WBC (Bld) 1.3 % [facility] Lymphocytes (Bld) [#/Vol] 0.80 10*3/uL Low 1.00 - 4.00 k/uL [facility] Lymphocytes/100 WBC (Bld) 14.7 % [facility] MCH (RBC) [Entitic mass] 30.5 pg 26.0 - 34.0 pg [facility] MCHC (RBC) [Mass/Vol] 34.6 g/dL 30.5 - 36.0 g/dL [facility] MCV (RBC) [Entitic vol] 87.9 fL 80.0 - 100.0 fL [facility] Monocytes (Bld) [#/Vol] 1.18 10*3/uL High <0.87 k/uL [facility] Monocytes/100 WBC (Bld) 21.7 % [facility] Neutrophils (Bld) [#/Vol] 3.08 10*3/uL 1.45 - 7.50 k/uL [facility] Neutrophils/100 WBC (Bld) 56.8 % [facility] Nucleated RBC (Bld) [#/Vol] <0.01 k/uL [facility] Nucleated RBC/100 WBC (Bld) [Ratio] 0.0 /100 WBC [facility] Platelet mean volume (Bld) [Entitic vol] 9.1 fL 9.0 - 12.7 fL [facility] Platelets (Bld) [#/Vol] 194 10*3/uL 150 - 400 k/uL [facility] RBC (Bld) [#/Vol] 4.63 10*6/uL 4.20 - 6.00 m/uL [facility] WBC (Bld) [#/Vol] 5.43 10*3/uL 3.70 - 11.00 k/uL [facility] Basophils (Bld) [#/Vol] 0.06 10*3/uL Normal <0.11 [facility] Comment on above: Order Comment: Speci men Type: BLOOD SPECIMENOrdering Facility: [facility] Address: [address] [place] [address] Performed By: #### 5 7021-8 ####[facility] LABCLIA [id number] [place] [address] Basophils/100 WBC (Bld) 1.1 % Normal [facility] Comment on above: Order Comment: Speci men Type: BLOOD SPECIMENOrdering Facility: [facility] Address: [address] [place] [address] Performed By: #### 5 7021-8 ####[facility] LABCLIA [id number] [place] [address] Differential cell count method Nom (Bld) Auto Normal [facility] Comment on above: Order Comment: Speci men Type: BLOOD SPECIMENOrdering Facility: [facility] Address: [address] [place] [address] Performed By: #### 5 7021-8 ####[facility] LABCLIA [id number] [place] [address] Eosinophils (Bld) [#/Vol] 0.24 10*3/uL Normal <0.46 [facility] Comment on above: Order Comment: Speci men Type: BLOOD SPECIMENOrdering Facility: [facility] Address: [address] [place] [address] Performed By: #### 5 7021-8 ####[facility] LABCLIA [id number] [place] [address] Eosinophils/100 WBC (Bld) 4.4 % Normal [facility] Comment on above: Order Comment: Speci men Type: BLOOD SPECIMENOrdering Facility: [facility] Address: [address] [place] [address] Performed By: #### 5 7021-8 ####[facility] LABCLIA [id number] [place] [address] Erythrocyte distribution width (RBC) [Ratio] 14.6 % Normal 11.5-15.0 [facility] Comment on above: Order Comment: Speci men Type: BLOOD SPECIMENOrdering Facility: [facility] Address: [address] [place] [address] Performed By: #### 5 7021-8 ####[facility] LABCLIA [id number] [place] [address] Hematocrit (Bld) [Volume fraction] 40.7 % Normal 39.0-51.0 [facility] Comment on above: Order Comment: Speci men Type: BLOOD SPECIMENOrdering Facility: [facility] Address: [address] [place] [address] Performed By: #### 5 7021-8 ####[facility] LABCLIA [id number] [place] [address] Hemoglobin (Bld) [Mass/Vol] 14.1 g/dL Normal 13.0-17.0 [facility] Comment on above: Order Comment: Speci men Type: BLOOD SPECIMENOrdering Facility: [facility] Address: [address] [place] [address] Performed By: #### 5 7021-8 ####[facility] LABCLIA [id number] [place] [address] Immature granulocytes (Bld) [#/Vol] 0.07 10*3/uL Normal <0.10 [facility] Comment on above: Order Comment: Speci men Type: BLOOD SPECIMENOrdering Facility: [facility] Address: [address] [place] [address] Performed By: #### 5 7021-8 ####[facility] LABCLIA [id number] [place] [address] Immature granulocytes/100 WBC (Bld) 1.3 % Normal [facility] Comment on above: Order Comment: Speci men Type: BLOOD SPECIMENOrdering Facility: [facility] Address: [address] [place] [address] Performed By: #### 5 7021-8 ####[facility] LABCLIA [id number] [place] [address] Lymphocytes (Bld) [#/Vol] 0.80 10*3/uL Low 1.00-4.00 [facility] Comment on above: Order Comment: Speci men Type: BLOOD SPECIMENOrdering Facility: [facility] Address: [address] [place] [address] Performed By: #### 5 7021-8 ####[facility] LABCLIA [id number] [place] [address] Lymphocytes/100 WBC (Bld) 14.7 % Normal [facility] Comment on above: Order Comment: Speci men Type: BLOOD SPECIMENOrdering Facility: [facility] Address: [address] [place], [place] [address] Performed By: #### 5 7021-8 ####[facility] LABCLIA [id number] [place] [address] MCH (RBC) [Entitic mass] 30.5 pg Normal 26.0-34.0 [facility] Comment on above: Order Comment: Speci men Type: BLOOD SPECIMENOrdering Facility: [facility] Address: [address] [place] [address] Performed By: #### 5 7021-8 ####[facility] LABCLIA [id number] [place] [address] MCHC (RBC) [Mass/Vol] 34.6 g/dL Normal 30.5-36.0 [facility] Comment on above: Order Comment: Speci men Type: BLOOD SPECIMENOrdering Facility: [facility] Address: [address] [place] [address] Performed By: #### 5 7021-8 ####[facility] LABCLIA [id number] [place] [address] MCV (RBC) [Entitic vol] 87.9 fL Normal 80.0-100.0 [facility] Comment on above: Order Comment: Speci men Type: BLOOD SPECIMENOrdering Facility: [facility] Address: [address] [place] [address] Performed By: #### 5 7021-8 ####[facility] LABCLIA [id number] [place] [address] Monocytes (Bld) [#/Vol] 1.18 10*3/uL High <0.87 [facility] Comment on above: Order Comment: Speci men Type: BLOOD SPECIMENOrdering Facility: [facility] Address: [address] [place] [address] Performed By: #### 5 7021-8 ####[facility] LABCLIA [id number] [place] [address] Monocytes/100 WBC (Bld) 21.7 % Normal [facility] Comment on above: Order Comment: Speci men Type: BLOOD SPECIMENOrdering Facility: [facility] Address: [address] [place] [address] Performed By: #### 5 7021-8 ####[facility] LABCLIA [id number] [place] [address] Neutrophils (Bld) [#/Vol] 3.08 10*3/uL Normal 1.45-7.50 [facility] Comment on above: Order Comment: Speci men Type: BLOOD SPECIMENOrdering Facility: [facility] Address: [address] [place] [address] Performed By: #### 5 7021-8 ####[facility] LABCLIA [id number] [place] [address] Neutrophils/100 WBC (Bld) 56.8 % Normal [facility] Comment on above: Order Comment: Speci men Type: BLOOD SPECIMENOrdering Facility: [facility] Address: [address] [place] [address] Performed By: #### 5 7021-8 ####[facility] LABCLIA [id number] [place] [address] Nucleated RBC (Bld) [#/Vol] 10*3/uL Normal <0.01 [facility] Comment on above: Order Comment: Speci men Type: BLOOD SPECIMENOrdering Facility: [facility] Address: [address] [place] [address] Performed By: #### 5 7021-8 ####[facility] LABCLIA [id number] [place] [address] Nucleated RBC/100 WBC (Bld) [Ratio] 0.0 /100 WBC Normal [facility] Comment on above: Order Comment: Speci men Type: BLOOD SPECIMENOrdering Facility: [facility] Address: [address] [place] [address] Performed By: #### 5 7021-8 ####[facility] LABCLIA [id number] [place] [address] Platelet mean volume (Bld) [Entitic vol] 9.1 fL Normal 9.0-12.7 [facility] Comment on above: Order Comment: Speci men Type: BLOOD SPECIMENOrdering Facility: [facility] Address: [address] [place] [address] Performed By: #### 5 7021-8 ####[facility] LABCLIA [id number] [place] [address] Platelets (Bld) [#/Vol] 194 10*3/uL Normal 150-400 [facility] Comment on above: Order Comment: Speci men Type: BLOOD SPECIMENOrdering Facility: [facility] Address: [address] [place] [address] Performed By: #### 5 7021-8 ####[facility] LABCLIA [id number] [place] [address] RBC (Bld) [#/Vol] 4.63 10*6/uL Normal 4.20-6.00 [place] Comment on above: Order Comment: Speci men Type: BLOOD SPECIMENOrdering Facility: [facility] Address: [address] [place] [address] Performed By: #### 5 7021-8 ####[facility] LABIA [id number] [place] [address] WBC (Bld) [#/Vol] 5.43 10*3/uL Normal 3.70-11.00 [place] Comment on above: Order Comment: Speci men Type: BLOOD SPECIMENOrdering Facility: [facility] Address: [address] [place] [address] Performed By: #### 5 7021-8 ####[facility] LABIA [id number] [place] [address] CNOVSPon 09-30-2023 CNOVSP Normal [facility] metabolic 2000 panelon 09-30-2023 Albumin [Mass/Vol] 4.3 g/dL 3.9 - 4.9 g/dL [facility] ALP [Catalytic activity/Vol] 175 U/L High 38 - 113 U/L [facility] ALT [Catalytic activity/Vol] 18 U/L 10 - 54 U/L [facility] Anion gap [Moles/Vol] 11 mmol/L 9 - 18 mmol/L [facility] AST [Catalytic activity/Vol] 16 U/L 14 - 40 U/L [facility] Bilirubin [Mass/Vol] 0.2 mg/dL 0.2 - 1 .3 mg/dL [facility] Calcium [Mass/Vol] 9.5 mg/dL 8.5 - 10. 2 mg/dL [facility] Chloride [Moles/Vol] 104 mmol/L 97 - 10 5 mmol/L [facility] CO2 [Moles/Vol] 24 mmol/L 22 - 30 mmol/L [facility] Creatinine [Mass/Vol] 0.97 mg/dL 0.73 - 1.22 mg/dL [facility] Estimated Glomerular Filtration Rate 86 mL/min/1.73m >=60 mL/min/1.7 3m [facility] Glucose [Mass/Vol] 101 mg/dL High 74 - 99 mg/dL [facility] Potassium [Moles/Vol] 4.2 mmol/L 3.7 - 5.1 mmol/L [facility] Protein [Mass/Vol] 7.0 g/dL 6.3 - 8.0 g/dL [facility] Sodium [Moles/Vol] 139 mmol/L 136 - 144 mmol/L [facility] Urea nitrogen [Mass/Vol] 25 mg/dL High 9 - 24 mg/dL [facility] Albumin [Mass/Vol] 4.3 g/dL Normal 3.9-4.9 [facility] Comment on above: Order Comment: Speci men Type: BLOOD SPECIMENOrdering Facility: [facility] [facility] Address: [address] [place] [address] Performed By: #### 2 4323-8, 3084-1 ####[facility] LABCLIA [id number] [place] [address] ALP [Catalytic activity/Vol] 175 U/L High 38-113 [facility] Comment on above: Order Comment: Speci men Type: BLOOD SPECIMENOrdering Facility: [facility] Address: [address] [place] [address] Performed By: #### 2 4323-8, 3083- ####[facility] LABCLIA [id number] [place] [address] ALT [Catalytic activity/Vol] 18 U/L Normal 10-54 [facility] Comment on above: Order Comment: Speci men Type: BLOOD SPECIMENOrdering Facility: [facility] Address: [address] [place] [address] Performed By: #### 2 4323-8, 3083- ####[facility] LABCLIA [id number] [place] [address] Anion gap [Moles/Vol] 11 mmol/L Normal 9-18 [facility] Comment on above: Order Comment: Speci men Type: BLOOD SPECIMENOrdering Facility: [facility] Address: [address] [place] [address] Performed By: #### 2 4323-8, 3083-11 ####[facility] LABCLIA [id number] [place] [address] AST [Catalytic activity/Vol] 16 U/L Normal 14-40 [facility] Comment on above: Order Comment: Speci men Type: BLOOD SPECIMENOrdering Facility: [facility] Address: [address] [place] [address] Performed By: #### 2 4323-8, 3083-11 ####[facility] LABCLIA [id number] [place] [address] Bilirubin [Mass/Vol] 0.2 mg/dL Normal 0.2-1.3 [facility] Comment on above: Order Comment: Speci men Type: BLOOD SPECIMENOrdering Facility: [facility] Address: [address] [id number] Performed By: #### 2 4323-8, 3083- ####[facility] LABCLIA [id number] [place] [address] Calcium [Mass/Vol] 9.5 mg/dL Normal 8.5-10.2 [facility] Comment on above: Order Comment: Speci men Type: BLOOD SPECIMENOrdering Facility: [facility] Address: [address] [place] [address] Performed By: #### 2 4323-8, 308-1 ####[facility] LABCLIA [id number] [place] [address] Chloride [Moles/Vol] 104 mmol/L Normal 97-105 [facility] Comment on above: Order Comment: Speci men Type: BLOOD SPECIMENOrdering Facility: [facility] Address: [address] [place] [address] Performed By: #### 2 4323-8, 3083- ####[facility] LABCLIA [id number] [place] [address] CO2 [Moles/Vol] 24 mmol/L Normal 22-30 [facility] Comment on above: Order Comment: Speci men Type: BLOOD SPECIMENOrdering Facility: [facility] Address: [address] [place] [address] Performed By: #### 2 4323-8, 3083- ####[facility] LABCLIA [id number] [place] [address] Creatinine [Mass/Vol] 0.97 mg/dL Normal 0.73-1.22 [facility] Comment on above: Order Comment: Speci men Type: BLOOD SPECIMENOrdering Facility: [facility] Address: [address] [place] [address] Performed By: #### 2 4323-8, 3083- ####[facility] LABCLIA [id number] [place] [address] Creatinine and Glomerular filtration rate.predicted panel (S/P/Bld) 86 mL/min/1.73m??? Normal >=60 [facility] Comment on above: Order Comment: Speci men Type: BLOOD SPECIMENOrdering Facility: [facility] Address: [address] [place] [address] Result Comment: Carol mated Glomerular Filtration Rate [...] GFR. Performed By: #### 2 4323-8, 3083-11 ####[facility] LABCLIA [id number] [place] [address] Glucose [Mass/Vol] 101 mg/dL High 74-99 [facility] Comment on above: Order Comment: Sara randle Type: BLOOD SPECIMENOrdering Facility: [facility] Address: [address] [place] [address] Result Comment: The [place] [employer] (ADA) provides guidance for cutoff [...] Standards of Medical Care in Diabetes 2016, [place] [employer]. Diabetes Care. 2016.39(Suppl 1). Performed By: #### 2 4323-8, 3083-11 ####[facility] LABIA [id number] [place] [address] Potassium [Moles/Vol] 4.2 mmol/L Normal 3.7-5.1 [facility] Comment on above: Order Comment: Sara randle Type: BLOOD SPECIMENOrdering Facility: [facility] Address: [address] [place] [address] Performed By: #### 2 4323-8, 3083-11 ####[facility] LABCLIA [id number] [place] [address] Protein [Mass/Vol] 7.0 g/dL Normal 6.3-8.0 [facility] Comment on above: Order Comment: Speci men Type: BLOOD SPECIMENOrdering Facility: [facility] Address: [address] [place] [address] Performed By: #### 2 4323-8, 3083-11 ####[facility] LABCLIA [id number] [place] [address] Sodium [Moles/Vol] 139 mmol/L Normal 136-144 [facility] Comment on above: Order Comment: Speci men Type: BLOOD SPECIMENOrdering Facility: [facility] Address: [address] [place] [address] Performed By: #### 2 4323-8, 3083-11 ####[facility] LABIA [id number] [place] [address] Urea nitrogen [Mass/Vol] 25 mg/dL High 9-24 [facility] Comment on above: Order Comment: Speci men Type: BLOOD SPECIMENOrdering Facility: [facility] Address: [address] [place] [address] Performed By: #### 2 4323-8, 3083-11 ####[facility] LABIA [id number] [place] [address] URIC ACID BLOODon 09-30-2023 Urate [Mass/Vol] 7.2 mg/dL 4.0 - 8.1 mg/dL [facility] Urate SerPl-mCncon Urate [Mass/Vol] 7.2 mg/dL Normal 4.0-8.1 [facility] Comment on above: Order Comment: Speci men Type: BLOOD SPECIMENOrdering Facility: [facility] Address: [address] [place] [address] Performed By: #### 2 4323-8, 3084-1 ####[facility] LABCLIA [id number] [place] [address] NM PET/CT SKULL-THIGH SUBQon 09-23-2023 NM PET/CT SKULL-THIGH SUBQ Normal [facility] CBC W Auto Differential pane l (Bld)on 09-02-2023 Basophils (Bld) [#/Vol] 0.06 10*3/uL Normal <0.11 [facility] Comment on above: Order Comment: Speci men Type: BLOOD SPECIMENOrdering Facility: [facility] Address: [address] [place] [address] Performed By: #### 5 7021-8 ####[facility] LABCLIA [id number] [place] [address] Basophils/100 WBC (Bld) 1.1 % Normal [facility] Comment on above: Order Comment: Speci men Type: BLOOD SPECIMENOrdering Facility: [facility] Address: [address] [place] [address] Performed By: #### 5 7021-8 ####[facility] LABCLIA [id number] [place] [address] Differential cell count method Nom (Bld) Auto Normal [facility] Comment on above: Order Comment: Speci men Type: BLOOD SPECIMENOrdering Facility: [facility] Address: [address] [place] [address] Performed By: #### 5 7021-8 ####[facility] LABCLIA [id number] [place] [address] Eosinophils (Bld) [#/Vol] 0.21 10*3/uL Normal <0.46 [facility] Comment on above: Order Comment: Speci men Type: BLOOD SPECIMENOrdering Facility: [facility] Address: [address] [place] [address] Performed By: #### 5 7021-8 ####[facility] LABCLIA [id number] [place] [address] Eosinophils/100 WBC (Bld) 3.9 % Normal [facility] Comment on above: Order Comment: Speci men Type: BLOOD SPECIMENOrdering Facility: [facility] Address: [address] [place] [address] Performed By: #### 5 7021-8 ####[facility] LABCLIA [id number] [place] [address] Erythrocyte distribution width (RBC) [Ratio] 15.6 % High 11.5-15.0 [facility] Comment on above: Order Comment: Speci men Type: BLOOD SPECIMENOrdering Facility: [facility] Address: [address] [place] [address] Performed By: #### 5 7021-8 ####[facility] LABCLIA [id number] [place] [address] Hematocrit (Bld) [Volume fraction] 41.9 % Normal 39.0-51.0 [facility] Comment on above: Order Comment: Speci men Type: BLOOD SPECIMENOrdering Facility: [facility] Address: [address] [place] [address] Performed By: #### 5 7021-8 ####[facility] LABCLIA [id number] [place] [address] Hemoglobin (Bld) [Mass/Vol] 14.5 g/dL Normal 13.0-17.0 [facility] Comment on above: Order Comment: Speci men Type: BLOOD SPECIMENOrdering Facility: [facility] Address: [address] [place] [address] Performed By: #### 5 7021-8 ####[facility] LABCLIA [id number] [place] [address] Immature granulocytes (Bld) [#/Vol] 0.04 10*3/uL Normal <0.10 [facility] Comment on above: Order Comment: Speci men Type: BLOOD SPECIMENOrdering Facility: [facility] Address: [address] [place] [address] Performed By: #### 5 7021-8 ####[facility] LABCLIA [id number] [place] [address] Immature granulocytes/100 WBC (Bld) 0.7 % Normal [facility] Comment on above: Order Comment: Speci men Type: BLOOD SPECIMENOrdering Facility: [facility] Address: [address] [place] [address] Performed By: #### 5 7021-8 ####[facility] LABCLIA [id number] [place] [address] Lymphocytes (Bld) [#/Vol] 0.45 10*3/uL Low 1.00-4.00 [facility] Comment on above: Order Comment: Speci men Type: BLOOD SPECIMENOrdering Facility: [facility] Address: [address] [place] [address] Performed By: #### 5 7021-8 ####[facility] LABCLIA [id number] [place] [address] Lymphocytes/100 WBC (Bld) 8.4 % Normal [facility] Comment on above: Order Comment: Speci men Type: BLOOD SPECIMENOrdering Facility: [facility] Address: [address] [place] [address] Performed By: #### 5 7021-8 ####[facility] LABCLIA [id number] [place] [address] MCH (RBC) [Entitic mass] 30.1 pg Normal 26.0-34.0 [facility] Comment on above: Order Comment: Speci men Type: BLOOD SPECIMENOrdering Facility: [facility] Address: [address] [place] [address] Performed By: #### 5 7021-8 ####[facility] LABIA [id number] [place] [address] MCHC (RBC) [Mass/Vol] 34.6 g/dL Normal 30.5-36.0 [facility] Comment on above: Order Comment: Speci men Type: BLOOD SPECIMENOrdering Facility: [facility] Address: [address] [place] [address] Performed By: #### 5 7021-8 ####[facility] LABCLIA [id number] [place] [address] MCV (RBC) [Entitic vol] 86.9 fL Normal 80.0-100.0 [facility] Comment on above: Order Comment: Speci men Type: BLOOD SPECIMENOrdering Facility: [facility] Address: [address] [place] [address] Performed By: #### 5 7021-8 ####[facility] LABCLIA [id number] [place] [address] Monocytes (Bld) [#/Vol] 0.92 10*3/uL High <0.87 [facility] Comment on above: Order Comment: Speci men Type: BLOOD SPECIMENOrdering Facility: [facility] Address: [address] [place] [address] Performed By: #### 5 7021-8 ####[facility] LABCLIA [id number] [place] [address] Monocytes/100 WBC (Bld) 17.2 % Normal [facility] Comment on above: Order Comment: Speci men Type: BLOOD SPECIMENOrdering Facility: [facility] Address: [address] [place] [address] Performed By: #### 5 7021-8 ####[facility] LABCLIA [id number] [place] [address] Neutrophils (Bld) [#/Vol] 3.66 10*3/uL Normal 1.45-7.50 [facility] Comment on above: Order Comment: Speci men Type: BLOOD SPECIMENOrdering Facility: [facility] Address: [address] [place] [address] Performed By: #### 5 7021-8 ####[facility] LABCLIA [id number] [place] [address] Neutrophils/100 WBC (Bld) 68.7 % Normal [facility] Comment on above: Order Comment: Speci men Type: BLOOD SPECIMENOrdering Facility: [facility] Address: [address] [place] [address] Performed By: #### 5 7021-8 ####[facility] LABCLIA [id number] [place] [address] Nucleated RBC (Bld) [#/Vol] 10*3/uL Normal <0.01 [facility] Comment on above: Order Comment: Speci men Type: BLOOD SPECIMENOrdering Facility: [facility] Address: [address] [place] [address] Performed By: #### 5 7021-8 ####[facility] LABCLIA [id number] [place] [address] Nucleated RBC/100 WBC (Bld) [Ratio] 0.0 /100 WBC Normal [facility] Comment on above: Order Comment: Speci men Type: BLOOD SPECIMENOrdering Facility: [facility] Address: [address] [place] [address] Performed By: #### 5 7021-8 ####[facility] LABCLIA [id number] [place] [address] Platelet mean volume (Bld) [Entitic vol] 9.7 fL Normal 9.0-12.7 [facility] Comment on above: Order Comment: Speci men Type: BLOOD SPECIMENOrdering Facility: [facility] Address: [address] [place] [address] Performed By: #### 5 7021-8 ####[facility] LABCLIA [id number] [place] [address] Platelets (Bld) [#/Vol] 160 10*3/uL Normal 150-400 [facility] Comment on above: Order Comment: Speci men Type: BLOOD SPECIMENOrdering Facility: [facility] Address: [address] [place] [address] Performed By: #### 5 7021-8 ####[facility] LABCLIA [id number] [place] [address] RBC (Bld) [#/Vol] 4.82 10*6/uL Normal 4.20-6.00 [place] Comment on above: Order Comment: Speci men Type: BLOOD SPECIMENOrdering Facility: [facility] Address: [address] [place] [address] Performed By: #### 5 7021-8 ####[facility] LABCLIA [id number] [place] [address] WBC (Bld) [#/Vol] 5.34 10*3/uL Normal 3.70-11.00 [place] Comment on above: Order Comment: Speci men Type: BLOOD SPECIMENOrdering Facility: [facility] Address: [address] [place] [address] Performed By: #### 5 7021-8 ####[facility] LABIA [id number] [place] [address] CNOVSPon 09-02-2023 CNOVSP Normal [facility] Comprehensive metabolic 2000 panelon 09-02-2023 Albumin [Mass/Vol] 4.3 g/dL Normal 3.9-4.9 [facility] Comment on above: Order Comment: Speci men Type: BLOOD SPECIMENOrdering Facility: [facility] Address: [address] [place] [address] Performed By: #### 3 084-1, 39133-4 ####[facility] LABCLIA [id number] [place] [address] ALP [Catalytic activity/Vol] 162 U/L High 38-113 [facility] Comment on above: Order Comment: Speci men Type: BLOOD SPECIMENOrdering Facility: [facility] Address: [address] [place] [address] Performed By: #### 3 084-1, 93202-1 ####[facility] LABCLIA [id number] [place] [address] ALT [Catalytic activity/Vol] 20 U/L Normal 10-54 [facility] Comment on above: Order Comment: Speci men Type: BLOOD SPECIMENOrdering Facility: [facility] Address: [address] [place] [address] Performed By: #### 3 084-1, ####[facility] LABCLIA [id number] [place] [address] Anion gap [Moles/Vol] 10 mmol/L Normal 9-18 [facility] Comment on above: Order Comment: Speci men Type: BLOOD SPECIMENOrdering Facility: [facility] Address: [address] [place] [address] Performed By: #### 3 084-1, ####[facility] LABCLIA [id number] [place] [address] AST [Catalytic activity/Vol] 25 U/L Normal 14-40 [facility] Comment on above: Order Comment: Speci men Type: BLOOD SPECIMENOrdering Facility: [facility] Address: [address] [place] [address] Performed By: #### 3 084-1, ####[facility] LABCLIA [id number] [place] [address] Bilirubin [Mass/Vol] 0.3 mg/dL Normal 0.2-1.3 [facility] Comment on above: Order Comment: Speci men Type: BLOOD SPECIMENOrdering Facility: [facility] Address: [address] [place] [address] Performed By: #### 3 084-1, 63655-4 ####[facility] LABCLIA [id number] [place] [address] Calcium [Mass/Vol] 9.7 mg/dL Normal 8.5-10.2 [facility] Comment on above: Order Comment: Speci men Type: BLOOD SPECIMENOrdering Facility: [facility] Address: [address] [place] [address] Performed By: #### 3 084-1, 88600-8 ####[facility] LABCLIA [id number] [place] [address] Chloride [Moles/Vol] 103 mmol/L Normal 97-105 [facility] Comment on above: Order Comment: Speci men Type: BLOOD SPECIMENOrdering Facility: [facility] Address: [address] [place] [address] Performed By: #### 3 084-1, 06724-9 ####[facility] LABCLIA [id number] [place] [address] CO2 [Moles/Vol] 26 mmol/L Normal 22-30 [facility] Comment on above: Order Comment: Speci men Type: BLOOD SPECIMENOrdering Facility: [facility] Address: [address] [place] [address] Performed By: #### 3 084-1, 17365-3 ####[facility] LABCLIA [id number] [place] [address] Creatinine [Mass/Vol] 0.98 mg/dL Normal 0.73-1.22 [facility] Comment on above: Order Comment: Speci men Type: BLOOD SPECIMENOrdering Facility: [facility] Address: [address] [place] [address] Performed By: #### 3 084-1, 07191-4 ####[facility] LABCLIA [id number] [place] [address] Creatinine and Glomerular filtration rate.predicted panel (S/P/Bld) 85 mL/min/1.73m??? Normal >=60 [facility] Comment on above: Order Comment: Speci men Type: BLOOD SPECIMENOrdering Facility: [facility] Address: [address] [place] [address] Result Comment: Carol mated Glomerular Filtration Rate [...] actual GFR. Performed By: #### 3 084-1, ####[facility] LABCLIA [id number] [place] [address] Glucose [Mass/Vol] 104 mg/dL High 74-99 [facility] Comment on above: Order Comment: Speci men Type: BLOOD SPECIMENOrdering Facility: [facility] Address: [address] [place] [address] Result Comment: The [place] [employer] (ADA) provides guidance for cutoff [...] Standards of Medical Care in Diabetes 2016, [place] [employer]. Diabetes Care. 2016.39(Suppl 1). Performed By: #### 3 084-1, ####[facility] LABCLIA [id number] [place] [address] Potassium [Moles/Vol] 4.3 mmol/L Normal 3.7-5.1 [facility] Comment on above: Order Comment: Sara randle Type: BLOOD SPECIMENOrdering Facility: [facility] Address: [address] [place] [address] Performed By: #### 3 084-1, ####[facility] LABCLIA [id number] [place] [address] Protein [Mass/Vol] 7.3 g/dL Normal 6.3-8.0 [facility] Comment on above: Order Comment: Speci men Type: BLOOD SPECIMENOrdering Facility: [facility] Address: [address] [place] [address] Performed By: #### 3 084-1, 87504-4 ####[facility] LABCLIA [id number] [place] [address] Sodium [Moles/Vol] 139 mmol/L Normal 136-144 [facility] Comment on above: Order Comment: Speci men Type: BLOOD SPECIMENOrdering Facility: [facility] Address: [address] [place] [address] Performed By: #### 3 084-1, 88533-2 ####[facility] LABIA [id number] [place] [address] Urea nitrogen [Mass/Vol] 19 mg/dL Normal 9-24 [facility] Comment on above: Order Comment: Speci men Type: BLOOD SPECIMENOrdering Facility: [facility] Address: [address] [place] [address] Performed By: #### 3 084-1, 20656-4 ####[facility] LABIA [id number] [place] [address] Urate SerPl-ncon 3 Urate [Mass/Vol] 6.4 mg/dL Normal 4.0-8.1 [facility] Comment on above: Order Comment: Speci men Type: BLOOD SPECIMENOrdering Facility: [facility] Address: [address] [place] [address] Performed By: #### 3 084-1, 94646-3 ####[facility] LABIA [id number] [place] [address] Consultation Noteon 08-08-20 Consultation Note [id number] Normal [facility] CBC W Auto Differential pane l (Bld)on 08-05-2023 Basophils (Bld) [#/Vol] 0.08 10*3/uL <0.11 k/uL [facility] Basophils/100 WBC (Bld) 1.3 % [facility] Differential cell count method Nom (Bld) Auto [facility] Eosinophils (Bld) [#/Vol] 0.27 10*3/uL <0.46 k/uL [facility] Eosinophils/100 WBC (Bld) 4.4 % [facility] Erythrocyte distribution width (RBC) [Ratio] 16.2 % High 11.5 - 15.0 % [facility] Hematocrit (Bld) [Volume fraction] 41.6 % 39.0 - 51.0 % [facility] Hemoglobin (Bld) [Mass/Vol] 13.8 g/dL 13.0 - 17.0 g/dL [facility] Immature granulocytes (Bld) [#/Vol] 0.06 10*3/uL <0.10 k/uL [facility] Immature granulocytes/100 WBC (Bld) 1.0 % [facility] Lymphocytes (Bld) [#/Vol] 0.46 10*3/uL Low 1.00 - 4.00 k/uL [facility] Lymphocytes/100 WBC (Bld) 7.6 % [facility] MCH (RBC) [Entitic mass] 29.5 pg 26.0 - 34.0 pg [facility] MCHC (RBC) [Mass/Vol] 33.2 g/dL 30.5 - 36.0 g/dL [facility] MCV (RBC) [Entitic vol] 88.9 fL 80.0 - 100.0 fL [facility] Monocytes (Bld) [#/Vol] 1.03 10*3/uL High <0.87 k/uL [facility] Monocytes/100 WBC (Bld) 17.0 % [facility] Neutrophils (Bld) [#/Vol] 4.17 10*3/uL 1.45 - 7.50 k/uL [facility] Neutrophils/100 WBC (Bld) 68.7 % [facility] Nucleated RBC (Bld) [#/Vol] <0.01 k/uL [facility] Nucleated RBC/100 WBC (Bld) [Ratio] 0.0 /100 WBC [facility] Platelet mean volume (Bld) [Entitic vol] 10.3 fL 9.0 - 12.7 fL [facility] Platelets (Bld) [#/Vol] 143 10*3/uL Low 150 - 400 k/uL [facility] RBC (Bld) [#/Vol] 4.68 10*6/uL 4.20 - 6.00 m/uL [facility] WBC (Bld) [#/Vol] 6.07 10*3/uL 3.70 - 11.00 k/uL [facility] Basophils (Bld) [#/Vol] 0.08 10*3/uL Normal <0.11 [facility] Comment on above: Order Comment: Speci men Type: BLOOD SPECIMENOrdering Facility: [facility] Address: [address] [place] [address] Performed By: #### 5 7021-8 ####[facility] LABCLIA [id number] [place] [address] Basophils/100 WBC (Bld) 1.3 % Normal [facility] Comment on above: Order Comment: Speci men Type: BLOOD SPECIMENOrdering Facility: [facility] Address: [address] [place] [address] Performed By: #### 5 7021-8 ####[facility] LABCLIA [id number] [place] [address] Differential cell count method Nom (Bld) Auto Normal [facility] Comment on above: Order Comment: Speci men Type: BLOOD SPECIMENOrdering Facility: [facility] Address: [address] [place] [address] Performed By: #### 5 7021-8 ####[facility] LABCLIA [id number] [place] [address] Eosinophils (Bld) [#/Vol] 0.27 10*3/uL Normal <0.46 [facility] Comment on above: Order Comment: Speci men Type: BLOOD SPECIMENOrdering Facility: [facility] Address: [address] [place] [address] Performed By: #### 5 7021-8 ####[facility] LABCLIA [id number] [place] [address] Eosinophils/100 WBC (Bld) 4.4 % Normal [facility] Comment on above: Order Comment: Speci men Type: BLOOD SPECIMENOrdering Facility: [facility] Address: [address] [place] [address] Performed By: #### 5 7021-8 ####[facility] LABCLIA [id number] [place] [address] Erythrocyte distribution width (RBC) [Ratio] 16.2 % High 11.5-15.0 [facility] Comment on above: Order Comment: Speci men Type: BLOOD SPECIMENOrdering Facility: [facility] Address: [address] [place] [address] Performed By: #### 5 7021-8 ####[facility] LABCLIA [id number] [place] [address] Hematocrit (Bld) [Volume fraction] 41.6 % Normal 39.0-51.0 [facility] Comment on above: Order Comment: Speci men Type: BLOOD SPECIMENOrdering Facility: [facility] Address: [address] [place] [address] Performed By: #### 5 7021-8 ####[facility] LABCLIA [id number] [place] [address] Hemoglobin (Bld) [Mass/Vol] 13.8 g/dL Normal 13.0-17.0 [facility] Comment on above: Order Comment: Speci men Type: BLOOD SPECIMENOrdering Facility: [facility] Address: [address] [place] [address] Performed By: #### 5 7021-8 ####[facility] LABCLIA [id number] [place] [address] Immature granulocytes (Bld) [#/Vol] 0.06 10*3/uL Normal <0.10 [facility] Comment on above: Order Comment: Speci men Type: BLOOD SPECIMENOrdering Facility: [facility] Address: [address] [address] Performed By: #### 5 7021-8 ####[facility] LABCLIA [id number] [place] [address] Immature granulocytes/100 WBC (Bld) 1.0 % Normal [facility] Comment on above: Order Comment: Speci men Type: BLOOD SPECIMENOrdering Facility: [facility] Address: [address] [place] [address] Performed By: #### 5 7021-8 ####[facility] LABCLIA [id number] [place] [address] Lymphocytes (Bld) [#/Vol] 0.46 10*3/uL Low 1.00-4.00 [facility] Comment on above: Order Comment: Speci men Type: BLOOD SPECIMENOrdering Facility: [facility] Address: [address] [place] [address] Performed By: #### 5 7021-8 ####[facility] LABCLIA [id number] [place] [address] Lymphocytes/100 WBC (Bld) 7.6 % Normal [facility] Comment on above: Order Comment: Speci men Type: BLOOD SPECIMENOrdering Facility: [facility] Address: [address] [place] [address] Performed By: #### 5 7021-8 ####[facility] LABCLIA [id number] [place] [address] MCH (RBC) [Entitic mass] 29.5 pg Normal 26.0-34.0 [facility] Comment on above: Order Comment: Speci men Type: BLOOD SPECIMENOrdering Facility: [facility] Address: [address] [place] [address] Performed By: #### 5 7021-8 ####[facility] LABCLIA [id number] [place] [address] MCHC (RBC) [Mass/Vol] 33.2 g/dL Normal 30.5-36.0 [facility] Comment on above: Order Comment: Speci men Type: BLOOD SPECIMENOrdering Facility: [facility] Address: [address] [place] [address] Performed By: #### 5 7021-8 ####[facility] LABCLIA [id number] [place] [address] MCV (RBC) [Entitic vol] 88.9 fL Normal 80.0-100.0 [facility] Comment on above: Order Comment: Speci men Type: BLOOD SPECIMENOrdering Facility: [facility] Address: [address] [place] [address] Performed By: #### 5 7021-8 ####[facility] LABCLIA [id number] [place] [address] Monocytes (Bld) [#/Vol] 1.03 10*3/uL High <0.87 [facility] Comment on above: Order Comment: Speci men Type: BLOOD SPECIMENOrdering Facility: [facility] Address: [address] [address] Performed By: #### 5 7021-8 ####[facility] LABCLIA [id number] [place] [address] Monocytes/100 WBC (Bld) 17.0 % Normal [facility] Comment on above: Order Comment: Speci men Type: BLOOD SPECIMENOrdering Facility: [facility] Address: [address] [address] Performed By: #### 5 7021-8 ####[facility] LABCLIA [id number] [place] [address] Neutrophils (Bld) [#/Vol] 4.17 10*3/uL Normal 1.45-7.50 [facility] Comment on above: Order Comment: Speci men Type: BLOOD SPECIMENOrdering Facility: [facility] Address: [address] [place] [address] Performed By: #### 5 7021-8 ####[facility] LABCLIA [id number] [place] [address] Neutrophils/100 WBC (Bld) 68.7 % Normal [facility] Comment on above: Order Comment: Speci men Type: BLOOD SPECIMENOrdering Facility: [facility] Address: [address] [place] [address] Performed By: #### 5 7021-8 ####[facility] LABCLIA [id number] [place] [address] Nucleated RBC (Bld) [#/Vol] 10*3/uL Normal <0.01 [facility] Comment on above: Order Comment: Speci men Type: BLOOD SPECIMENOrdering Facility: [facility] Address: [address] [place] [address] Performed By: #### 5 7021-8 ####[facility] LABCLIA [id number] [place] [address] Nucleated RBC/100 WBC (Bld) [Ratio] 0.0 /100 WBC Normal [facility] Comment on above: Order Comment: Speci men Type: BLOOD SPECIMENOrdering Facility: [facility] Address: [address] [place] [address] Performed By: #### 5 7021-8 ####[facility] LABCLIA [id number] [place] [address] Platelet mean volume (Bld) [Entitic vol] 10.3 fL Normal 9.0-12.7 [facility] Comment on above: Order Comment: Speci men Type: BLOOD SPECIMENOrdering Facility: [facility] Address: [address] [place] [address] Performed By: #### 5 7021-8 ####[facility] LABCLIA [id number] [place] [address] Platelets (Bld) [#/Vol] 143 10*3/uL Low 150-400 [facility] Comment on above: Order Comment: Speci men Type: BLOOD SPECIMENOrdering Facility: [facility] Address: [address] [place] [address] Performed By: #### 5 7021-8 ####[facility] LABIA [id number] [place] [address] RBC (Bld) [#/Vol] 4.68 10*6/uL Normal 4.20-6.00 [place] Comment on above: Order Comment: Speci men Type: BLOOD SPECIMENOrdering Facility: [facility] Address: [address] [place] [address] Performed By: #### 5 7021-8 ####[facility] LABIA [id number] [place] [address] WBC (Bld) [#/Vol] 6.07 10*3/uL Normal 3.70-11.00 [place] Comment on above: Order Comment: Speci men Type: BLOOD SPECIMENOrdering Facility: [facility] Address: [address] [place] [address] Performed By: #### 5 7021-8 ####[facility] LABIA [id number] [place] [address] CNOVSPon 08-05-2023 CNOVSP Normal [facility] metabolic 2000 panelon 08-05-2023 Albumin [Mass/Vol] 4.2 g/dL 3.9 - 4.9 g/dL [facility] ALP [Catalytic activity/Vol] 198 U/L High 38 - 113 U/L [facility] ALT [Catalytic activity/Vol] 19 U/L 10 - 54 U/L [facility] Anion gap [Moles/Vol] 9 mmol/L 9 - 18 mmol/L [facility] AST [Catalytic activity/Vol] 18 U/L 14 - 40 U/L [facility] Bilirubin [Mass/Vol] 0.2 mg/dL 0.2 - 1 .3 mg/dL [facility] Calcium [Mass/Vol] 9.5 mg/dL 8.5 - 10. 2 mg/dL [facility] Chloride [Moles/Vol] 107 mmol/L High 97 - 10 5 mmol/L [facility] CO2 [Moles/Vol] 23 mmol/L 22 - 30 mmol/L [facility] Creatinine [Mass/Vol] 0.90 mg/dL 0.73 - 1.22 mg/dL [facility] Estimated Glomerular Filtration Rate 94 mL/min/1.73m >=60 mL/min/1.7 3m [facility] Glucose [Mass/Vol] 104 mg/dL High 74 - 99 mg/dL [facility] Potassium [Moles/Vol] 4.2 mmol/L 3.7 - 5.1 mmol/L [facility] Protein [Mass/Vol] 6.8 g/dL 6.3 - 8.0 g/dL [facility] Sodium [Moles/Vol] 139 mmol/L 136 - 144 mmol/L [facility] Urea nitrogen [Mass/Vol] 17 mg/dL 9 - 24 mg/dL [facility] Albumin [Mass/Vol] 4.2 g/dL Normal 3.9-4.9 [facility] Comment on above: Order Comment: Speci men Type: BLOOD SPECIMENOrdering Facility: [facility] Address: [address] [address] Performed By: #### 2 4323-8 ####[facility] LABCLIA [id number] [place] [address] ALP [Catalytic activity/Vol] 198 U/L High 38-113 [facility] Comment on above: Order Comment: Speci men Type: BLOOD SPECIMENOrdering Facility: [facility] Address: [address] [address] Performed By: #### 2 4323-8 ####[facility] LABCLIA [id number] [place] [address] ALT [Catalytic activity/Vol] 19 U/L Normal 10-54 [facility] Comment on above: Order Comment: Speci men Type: BLOOD SPECIMENOrdering Facility: [facility] Address: [address] [address] Performed By: #### 2 4323-8 ####[facility] LABCLIA [id number] [place] [address] Anion gap [Moles/Vol] 9 mmol/L Normal 9-18 [facility] Comment on above: Order Comment: Speci men Type: BLOOD SPECIMENOrdering Facility: [facility] Address: [address] [place] [address] Performed By: #### 2 4323-8 ####[facility] LABCLIA [id number] [place] [address] AST [Catalytic activity/Vol] 18 U/L Normal 14-40 [facility] Comment on above: Order Comment: Speci men Type: BLOOD SPECIMENOrdering Facility: [facility] Address: [address] [place] [address] Performed By: #### 2 4323-8 ####[facility] LABCLIA [id number] [place] [address] Bilirubin [Mass/Vol] 0.2 mg/dL Normal 0.2-1.3 [facility] Comment on above: Order Comment: Speci men Type: BLOOD SPECIMENOrdering Facility: [facility] Address: [address] [place] [address] Performed By: #### 2 4323-8 ####[facility] LABCLIA [id number] [place] [address] Calcium [Mass/Vol] 9.5 mg/dL Normal 8.5-10.2 [facility] Comment on above: Order Comment: Speci men Type: BLOOD SPECIMENOrdering Facility: [facility] Address: [address] [place] [address] Performed By: #### 2 4323-8 ####[facility] LABCLIA [id number] [place] [address] Chloride [Moles/Vol] 107 mmol/L High 97-105 [facility] Comment on above: Order Comment: Speci men Type: BLOOD SPECIMENOrdering Facility: [facility] Address: [address] [address] Performed By: #### 2 4323-8 ####[facility] LABCLIA [id number] [place] [address] CO2 [Moles/Vol] 23 mmol/L Normal 22-30 [facility] Comment on above: Order Comment: Speci men Type: BLOOD SPECIMENOrdering Facility: [facility] Address: [address] [address] Performed By: #### 2 4323-8 ####[facility] LABCLIA [id number] [place] [address] Creatinine [Mass/Vol] 0.90 mg/dL Normal 0.73-1.22 [facility] Comment on above: Order Comment: Speci men Type: BLOOD SPECIMENOrdering Facility: [facility] Address: [address] [place] [address] Performed By: #### 2 4323-8 ####[facility] LABCLIA [id number] [place] [address] Creatinine and Glomerular filtration rate.predicted panel (S/P/Bld) 94 mL/min/1.73m??? Normal >=60 [facility] Comment on above: Order Comment: Speci men Type: BLOOD SPECIMENOrdering Facility: [facility] Address: [address] [place] [address] Result Comment: Carol mated Glomerular Filtration Rate [...] actual GFR. Performed By: #### 2 4323-8 ####[facility] LABCLIA [id number] [place] [address] Glucose [Mass/Vol] 104 mg/dL High 74-99 [facility] Comment on above: Order Comment: Speci men Type: BLOOD SPECIMENOrdering Facility: [facility] Address: [address] [phone] Result Comment: The [place] [employer] (ADA) provides guidance for cutoff [...] Standards of Medical Care in Diabetes 2016, [place] [employer]. Diabetes Care. 2016.39(Suppl 1). Performed By: #### 2 4323-8 ####[facility] LABCLIA [id number] [place] [address] Potassium [Moles/Vol] 4.2 mmol/L Normal 3.7-5.1 [facility] Comment on above: Order Comment: Speci men Type: BLOOD SPECIMENOrdering Facility: [facility] Address: [address] [address] Performed By: #### 2 4323-8 ####[facility] LABCLIA [id number] [place] [address] Protein [Mass/Vol] 6.8 g/dL Normal 6.3-8.0 [facility] Comment on above: Order Comment: Speci men Type: BLOOD SPECIMENOrdering Facility: [facility] Address: [address] [phone] Performed By: #### 2 4323-8 ####[facility] LABCLIA [id number] [place] [address] Sodium [Moles/Vol] 139 mmol/L Normal 136-144 [facility] Comment on above: Order Comment: Speci men Type: BLOOD SPECIMENOrdering Facility: [facility] Address: [address] [facility] [phone] Performed By: #### 2 4323-8 ####[facility] LABCLIA [id number] [place] [address] Urea nitrogen [Mass/Vol] 17 mg/dL Normal 9-24 [facility] Comment on above: Order Comment: Speci men Type: BLOOD SPECIMENOrdering Facility: [facility] Address: [address] [address] Performed By: #### 2 4323-8 ####[facility] LABCLIA [id number] [place] [address] CNPNon 08-04-2023 CNPN Normal [facility] Basic metabolic 2000 panelon 07-22-2023 Anion gap [Moles/Vol] 13 mmol/L 9 - 18 mmol/L [facility] Calcium [Mass/Vol] 9.7 mg/dL 8.5 - 10. 2 mg/dL [facility] Chloride [Moles/Vol] 105 mmol/L 97 - 10 5 mmol/L [facility] CO2 [Moles/Vol] 23 mmol/L 22 - 30 mmol/L [facility] Creatinine [Mass/Vol] 0.96 mg/dL 0.73 - 1.22 mg/dL [facility] Estimated Glomerular Filtration Rate 87 mL/min/1.73m >=60 mL/min/1.7 3m [facility] Glucose [Mass/Vol] 101 mg/dL High 74 - 99 mg/dL [facility] Potassium [Moles/Vol] 4.7 mmol/L 3.7 - 5.1 mmol/L [facility] Sodium [Moles/Vol] 141 mmol/L 136 - 144 mmol/L [facility] Urea nitrogen [Mass/Vol] 14 mg/dL 9 - 24 mg/dL [facility] Anion gap [Moles/Vol] 13 mmol/L Normal 9-18 [facility] Comment on above: Order Comment: Speci men Type: BLOOD SPECIMENOrdering Facility: [facility] Address: [address] [address] Performed By: #### 2 4321-2, 3084-1 ####[facility] LABCLIA [id number] [place] [address] Calcium [Mass/Vol] 9.7 mg/dL Normal 8.5-10.2 [facility] Comment on above: Order Comment: Speci men Type: BLOOD SPECIMENOrdering Facility: [facility] Address: [address] [place] [address] Performed By: #### 2 4321-2, 3084-1 ####[facility] LABCLIA [id number] [place] [address] Chloride [Moles/Vol] 105 mmol/L Normal 97-105 [facility] Comment on above: Order Comment: Speci men Type: BLOOD SPECIMENOrdering Facility: [facility] Address: [address] [place] [address] Performed By: #### 2 4321-2, 3083-1 ####[facility] LABCLIA [id number] [place] [address] CO2 [Moles/Vol] 23 mmol/L Normal 22-30 [facility] Comment on above: Order Comment: Speci men Type: BLOOD SPECIMENOrdering Facility: [facility] Address: [address] [place] [address] Performed By: #### 2 4321-2, 3083-1 ####[facility] LABCLIA [id number] [place] [address] Creatinine [Mass/Vol] 0.96 mg/dL Normal 0.73-1.22 [facility] Comment on above: Order Comment: Speci men Type: BLOOD SPECIMENOrdering Facility: [facility] Address: [address] [place] [address] Performed By: #### 2 4321-2, 3084-1 ####[facility] LABCLIA [id number] [place] [address] Creatinine and Glomerular filtration rate.predicted panel (S/P/Bld) 87 mL/min/1.73m??? Normal >=60 [facility] Comment on above: Order Comment: Sara randle Type: BLOOD SPECIMENOrdering Facility: [facility] Address: [address] [phone] Result Comment: Carol mated Glomerular Filtration Rate [...] actual GFR. Performed By: #### 2 4321-2, 308-1 ####[facility] LABIA [id number] [place] [address] Glucose [Mass/Vol] 101 mg/dL High 74-99 [facility] Comment on above: Order Comment: Sara randle Type: BLOOD SPECIMENOrdering Facility: [facility] Address: [address] [phone] Result Comment: The [place] [employer] (ADA) provides guidance for cutoff [...] Standards of Medical Care in Diabetes 2016, [place] [employer]. Diabetes Care. 2016.39(Suppl 1). Performed By: #### 2 4321-2, 308-1 ####[facility] LABIA [id number] [place] [address] Potassium [Moles/Vol] 4.7 mmol/L Normal 3.7-5.1 [facility] Comment on above: Order Comment: Sara randle Type: BLOOD SPECIMENOrdering Facility: [facility] Address: [address] [address] Performed By: #### 2 4321-2, 308-1 ####[facility] LABCLIA [id number] [place] [address] Sodium [Moles/Vol] 141 mmol/L Normal 136-144 [facility] Comment on above: Order Comment: Speci men Type: BLOOD SPECIMENOrdering Facility: [facility] Address: [address] [address] Performed By: #### 2 4321-2, 308-1 ####[facility] LABCLIA [id number] [address] [address] Urea nitrogen [Mass/Vol] 14 mg/dL Normal 9-24 [facility] Comment on above: Order Comment: Speci men Type: BLOOD SPECIMENOrdering Facility: [facility] Address: [address] [address] Performed By: #### 2 4321-2, 308-1 ####[facility] LABCLIA [id number] [place] [address] CBC W Auto Differential pane l (Bld)on 07-22-2023 Basophils (Bld) [#/Vol] 0.07 10*3/uL <0.11 k/uL [facility] Basophils/100 WBC (Bld) 1.2 % [facility] Differential cell count method Nom (Bld) Auto [facility] Eosinophils (Bld) [#/Vol] 0.17 10*3/uL <0.46 k/uL [facility] Eosinophils/100 WBC (Bld) 3.0 % [facility] Erythrocyte distribution width (RBC) [Ratio] 16.1 % High 11.5 - 15.0 % [facility] Hematocrit (Bld) [Volume fraction] 46.9 % 39.0 - 51.0 % [facility] Hemoglobin (Bld) [Mass/Vol] 15.2 g/dL 13.0 - 17.0 g/dL [facility] Immature granulocytes (Bld) [#/Vol] 0.09 10*3/uL <0.10 k/uL [facility] Immature granulocytes/100 WBC (Bld) 1.6 % [facility] Lymphocytes (Bld) [#/Vol] 0.26 10*3/uL Low 1.00 - 4.00 k/uL [facility] Lymphocytes/100 WBC (Bld) 4.6 % [facility] MCH (RBC) [Entitic mass] 29.0 pg 26.0 - 34.0 pg [facility] MCHC (RBC) [Mass/Vol] 32.4 g/dL 30.5 - 36.0 g/dL [facility] MCV (RBC) [Entitic vol] 89.5 fL 80.0 - 100.0 fL [facility] Monocytes (Bld) [#/Vol] 1.09 10*3/uL High <0.87 k/uL [facility] Monocytes/100 WBC (Bld) 19.3 % [facility] Neutrophils (Bld) [#/Vol] 3.97 10*3/uL 1.45 - 7.50 k/uL [facility] Neutrophils/100 WBC (Bld) 70.3 % [facility] Nucleated RBC (Bld) [#/Vol] <0.01 k/uL [facility] Nucleated RBC/100 WBC (Bld) [Ratio] 0.0 /100 WBC [facility] Platelet mean volume (Bld) [Entitic vol] 10.0 fL 9.0 - 12.7 fL [facility] Platelets (Bld) [#/Vol] 242 10*3/uL 150 - 400 k/uL [facility] RBC (Bld) [#/Vol] 5.24 10*6/uL 4.20 - 6.00 m/uL [facility] WBC (Bld) [#/Vol] 5.65 10*3/uL 3.70 - 11.00 k/uL [facility] Basophils (Bld) [#/Vol] 0.07 10*3/uL Normal <0.11 [facility] Comment on above: Order Comment: Speci men Type: BLOOD SPECIMENOrdering Facility: [facility] Address: [address] [place] [phone] Performed By: #### 5 7021-8 ####[facility] LABCLIA [id number] [place] [address] Basophils/100 WBC (Bld) 1.2 % Normal [facility] Comment on above: Order Comment: Speci men Type: BLOOD SPECIMENOrdering Facility: [facility] Address: [address] [place] [address] Performed By: #### 5 7021-8 ####[facility] LABCLIA [id number] [place] [address] Differential cell count method Nom (Bld) Auto Normal [facility] Comment on above: Order Comment: Speci men Type: BLOOD SPECIMENOrdering Facility: [facility] Address: [address] [place] [address] Performed By: #### 5 7021-8 ####[facility] LABCLIA [id number] [place] [address] Eosinophils (Bld) [#/Vol] 0.17 10*3/uL Normal <0.46 [facility] Comment on above: Order Comment: Speci men Type: BLOOD SPECIMENOrdering Facility: [facility] Address: [address] [place] [address] Performed By: #### 5 7021-8 ####[facility] LABCLIA [id number] [place] [address] Eosinophils/100 WBC (Bld) 3.0 % Normal [facility] Comment on above: Order Comment: Speci men Type: BLOOD SPECIMENOrdering Facility: [facility] Address: [address] [place] [address] Performed By: #### 5 7021-8 ####[facility] LABCLIA [id number] [place] [address] Erythrocyte distribution width (RBC) [Ratio] 16.1 % High 11.5-15.0 [facility] Comment on above: Order Comment: Speci men Type: BLOOD SPECIMENOrdering Facility: [facility] Address: [address] [place] [address] Performed By: #### 5 7021-8 ####[facility] LABCLIA [id number] [place] [address] Hematocrit (Bld) [Volume fraction] 46.9 % Normal 39.0-51.0 [facility] Comment on above: Order Comment: Speci men Type: BLOOD SPECIMENOrdering Facility: [facility] Address: [address] [place] [address] Performed By: #### 5 7021-8 ####[facility] LABCLIA [id number] [place] [address] Hemoglobin (Bld) [Mass/Vol] 15.2 g/dL Normal 13.0-17.0 [facility] Comment on above: Order Comment: Speci men Type: BLOOD SPECIMENOrdering Facility: [facility] Address: [address] [place] [address] Performed By: #### 5 7021-8 ####[facility] LABCLIA [id number] [place] [address] Immature granulocytes (Bld) [#/Vol] 0.09 10*3/uL Normal <0.10 [facility] Comment on above: Order Comment: Speci men Type: BLOOD SPECIMENOrdering Facility: [facility] Address: [address] [place] [address] Performed By: #### 5 7021-8 ####[facility] LABCLIA [id number] [place] [address] Immature granulocytes/100 WBC (Bld) 1.6 % Normal [facility] Comment on above: Order Comment: Speci men Type: BLOOD SPECIMENOrdering Facility: [facility] Address: [address] [place] [address] Performed By: #### 5 7021-8 ####[facility] LABCLIA [id number] [place] [address] Lymphocytes (Bld) [#/Vol] 0.26 10*3/uL Low 1.00-4.00 [facility] Comment on above: Order Comment: Speci men Type: BLOOD SPECIMENOrdering Facility: [facility] Address: [address] [place] [address] Performed By: #### 5 7021-8 ####[facility] LABCLIA [id number] [place] [address] Lymphocytes/100 WBC (Bld) 4.6 % Normal [facility] Comment on above: Order Comment: Speci men Type: BLOOD SPECIMENOrdering Facility: [facility] Address: [address] [place] [address] Performed By: #### 5 7021-8 ####[facility] LABCLIA [id number] [place] [address] MCH (RBC) [Entitic mass] 29.0 pg Normal 26.0-34.0 [facility] Comment on above: Order Comment: Speci men Type: BLOOD SPECIMENOrdering Facility: [facility] Address: [address] [place] [address] Performed By: #### 5 7021-8 ####[facility] LABCLIA [id number] [place] [address] MCHC (RBC) [Mass/Vol] 32.4 g/dL Normal 30.5-36.0 [facility] Comment on above: Order Comment: Speci men Type: BLOOD SPECIMENOrdering Facility: [facility] Address: [address] [place] [address] Performed By: #### 5 7021-8 ####[facility] LABCLIA [id number] [place] [address] MCV (RBC) [Entitic vol] 89.5 fL Normal 80.0-100.0 [facility] Comment on above: Order Comment: Speci men Type: BLOOD SPECIMENOrdering Facility: [facility] Address: [address] [place] [address] Performed By: #### 5 7021-8 ####[facility] LABCLIA [id number] [place] [address] Monocytes (Bld) [#/Vol] 1.09 10*3/uL High <0.87 [facility] Comment on above: Order Comment: Speci men Type: BLOOD SPECIMENOrdering Facility: [facility] Address: [address] [place] [address] Performed By: #### 5 7021-8 ####[facility] LABCLIA [id number] [place] [address] Monocytes/100 WBC (Bld) 19.3 % Normal [facility] Comment on above: Order Comment: Speci men Type: BLOOD SPECIMENOrdering Facility: [facility] Address: [address] [place] [address] Performed By: #### 5 7021-8 ####[facility] LABCLIA [id number] [place] [address] Neutrophils (Bld) [#/Vol] 3.97 10*3/uL Normal 1.45-7.50 [facility] Comment on above: Order Comment: Speci men Type: BLOOD SPECIMENOrdering Facility: [facility] [facility] Address: [address] [place] [address] Performed By: #### 5 7021-8 ####[facility] LABCLIA [id number] [place] [address] Neutrophils/100 WBC (Bld) 70.3 % Normal [facility] Comment on above: Order Comment: Speci men Type: BLOOD SPECIMENOrdering Facility: [facility] Address: [address] [place] [address] Performed By: #### 5 7021-8 ####[facility] LABCLIA [id number] [place] [address] Nucleated RBC (Bld) [#/Vol] 10*3/uL Normal <0.01 [facility] Comment on above: Order Comment: Speci men Type: BLOOD SPECIMENOrdering Facility: [facility] Address: [address] [address] Performed By: #### 5 7021-8 ####[facility] LABCLIA [id number] [place] [address] Nucleated RBC/100 WBC (Bld) [Ratio] 0.0 /100 WBC Normal [facility] Comment on above: Order Comment: Speci men Type: BLOOD SPECIMENOrdering Facility: [facility] Address: [address] [address] Performed By: #### 5 7021-8 ####[facility] LABCLIA [id number] [place] [address] Platelet mean volume (Bld) [Entitic vol] 10.0 fL Normal 9.0-12.7 [facility] Comment on above: Order Comment: Speci men Type: BLOOD SPECIMENOrdering Facility: [facility] Address: [address] [address] Performed By: #### 5 7021-8 ####[facility] LABCLIA [id number] [place] [address] Platelets (Bld) [#/Vol] 242 10*3/uL Normal 150-400 [facility] Comment on above: Order Comment: Speci men Type: BLOOD SPECIMENOrdering Facility: [facility] Address: [address] [address] Performed By: #### 5 7021-8 ####[facility] LABCLIA [id number] [place] [address] RBC (Bld) [#/Vol] 5.24 10*6/uL Normal 4.20-6.00 [place] Comment on above: Order Comment: Speci men Type: BLOOD SPECIMENOrdering Facility: [facility] Address: [address] [place] [address] Performed By: #### 5 7021-8 ####[facility] LABCLIA [id number] [place] [address] WBC (Bld) [#/Vol] 5.65 10*3/uL Normal 3.70-11.00 [place] Comment on above: Order Comment: Speci men Type: BLOOD SPECIMENOrdering Facility: [facility] Address: [address] [place] [address] Performed By: #### 5 7021-8 ####[facility] LABCLIA [id number] [place] [address] URIC ACID BLOODon 07-22-2023 Urate [Mass/Vol] 6.1 mg/dL 4.0 - 8.1 mg/dL [facility] Urate SerPl-mCncon Urate [Mass/Vol] 6.1 mg/dL Normal 4.0-8.1 [facility] Comment on above: Order Comment: Speci men Type: BLOOD SPECIMENOrdering Facility: [facility] Address: [address] [place] [address] Performed By: #### 2 4321-2, 3084-1 ####[facility] LABCLIA [id number] [place] [address] CBC W Auto Differential pane l (Bld)on 07-08-2023 Basophils (Bld) [#/Vol] 0.06 10*3/uL <0.11 k/uL [facility] Basophils/100 WBC (Bld) 0.8 % [facility] Differential cell count method Nom (Bld) Auto [facility] Eosinophils (Bld) [#/Vol] 0.24 10*3/uL <0.46 k/uL [facility] Eosinophils/100 WBC (Bld) 3.1 % [facility] Erythrocyte distribution width (RBC) [Ratio] 15.9 % High 11.5 - 15.0 % [facility] Hematocrit (Bld) [Volume fraction] 41.1 % 39.0 - 51.0 % [facility] Hemoglobin (Bld) [Mass/Vol] 13.3 g/dL 13.0 - 17.0 g/dL [facility] Immature granulocytes (Bld) [#/Vol] 0.03 10*3/uL <0.10 k/uL [facility] Immature granulocytes/100 WBC (Bld) 0.4 % [facility] Lymphocytes (Bld) [#/Vol] 0.25 10*3/uL Low 1.00 - 4.00 k/uL [facility] Lymphocytes/100 WBC (Bld) 3.2 % [facility] MCH (RBC) [Entitic mass] 28.8 pg 26.0 - 34.0 pg [facility] MCHC (RBC) [Mass/Vol] 32.4 g/dL 30.5 - 36.0 g/dL [facility] MCV (RBC) [Entitic vol] 89.0 fL 80.0 - 100.0 fL [facility] Monocytes (Bld) [#/Vol] 0.52 10*3/uL <0.87 k/uL [facility] Monocytes/100 WBC (Bld) 6.6 % [facility] Neutrophils (Bld) [#/Vol] 6.73 10*3/uL 1.45 - 7.50 k/uL [facility] Neutrophils/100 WBC (Bld) 85.9 % [facility] Nucleated RBC (Bld) [#/Vol] <0.01 k/uL [facility] Nucleated RBC/100 WBC (Bld) [Ratio] 0.0 /100 WBC [facility] Platelet mean volume (Bld) [Entitic vol] 10.1 fL 9.0 - 12.7 fL [facility] Platelets (Bld) [#/Vol] 146 10*3/uL Low 150 - 400 k/uL [facility] RBC (Bld) [#/Vol] 4.62 10*6/uL 4.20 - 6.00 m/uL [facility] WBC (Bld) [#/Vol] 7.83 10*3/uL 3.70 - 11.00 k/uL [facility] Basophils (Bld) [#/Vol] 0.06 10*3/uL Normal <0.11 [facility] Comment on above: Order Comment: Speci men Type: BLOOD SPECIMENOrdering Facility: [facility] Address: [address] [place] [phone] Performed By: #### 5 7021-8 ####[facility] LABCLIA [id number] [place] [address] Basophils/100 WBC (Bld) 0.8 % Normal [facility] Comment on above: Order Comment: Speci men Type: BLOOD SPECIMENOrdering Facility: [facility] Address: [address] [place] [address] Performed By: #### 5 7021-8 ####[facility] LABCLIA [id number] [place] [address] Differential cell count method Nom (Bld) Auto Normal [facility] Comment on above: Order Comment: Speci men Type: BLOOD SPECIMENOrdering Facility: [facility] Address: [address] [place] [address] Performed By: #### 5 7021-8 ####[facility] LABCLIA [id number] [place] [address] Eosinophils (Bld) [#/Vol] 0.24 10*3/uL Normal <0.46 [facility] Comment on above: Order Comment: Speci men Type: BLOOD SPECIMENOrdering Facility: [facility] Address: [address] [place] [address] Performed By: #### 5 7021-8 ####[facility] LABCLIA [id number] [place] [address] Eosinophils/100 WBC (Bld) 3.1 % Normal [facility] Comment on above: Order Comment: Speci men Type: BLOOD SPECIMENOrdering Facility: [facility] Address: [address] [place] [address] Performed By: #### 5 7021-8 ####[facility] LABIA [id number] [place] [address] Erythrocyte distribution width (RBC) [Ratio] 15.9 % High 11.5-15.0 [facility] Comment on above: Order Comment: Speci men Type: BLOOD SPECIMENOrdering Facility: [facility] Address: [address] [place] [address] Performed By: #### 5 7021-8 ####[facility] LABCLIA [id number] [place] [address] Hematocrit (Bld) [Volume fraction] 41.1 % Normal 39.0-51.0 [facility] Comment on above: Order Comment: Speci men Type: BLOOD SPECIMENOrdering Facility: [facility] Address: [address] [place] [address] Performed By: #### 5 7021-8 ####[facility] LABCLIA [id number] [place] [address] Hemoglobin (Bld) [Mass/Vol] 13.3 g/dL Normal 13.0-17.0 [facility] Comment on above: Order Comment: Speci men Type: BLOOD SPECIMENOrdering Facility: [facility] Address: [address] [place] [address] Performed By: #### 5 7021-8 ####[facility] LABCLIA [id number] [place] [address] Immature granulocytes (Bld) [#/Vol] 0.03 10*3/uL Normal <0.10 [facility] Comment on above: Order Comment: Speci men Type: BLOOD SPECIMENOrdering Facility: [facility] Address: [address] [place] [address] Performed By: #### 5 7021-8 ####[facility] LABCLIA [id number] [place] [address] Immature granulocytes/100 WBC (Bld) 0.4 % Normal [facility] Comment on above: Order Comment: Speci men Type: BLOOD SPECIMENOrdering Facility: [facility] Address: [address] [place] [address] Performed By: #### 5 7021-8 ####[facility] LABCLIA [id number] [place] [address] Lymphocytes (Bld) [#/Vol] 0.25 10*3/uL Low 1.00-4.00 [facility] Comment on above: Order Comment: Speci men Type: BLOOD SPECIMENOrdering Facility: [facility] Address: [address] [place] [address] Performed By: #### 5 7021-8 ####[facility] LABCLIA [id number] [place] [address] Lymphocytes/100 WBC (Bld) 3.2 % Normal [facility] Comment on above: Order Comment: Speci men Type: BLOOD SPECIMENOrdering Facility: [facility] Address: [address] [place] [address] Performed By: #### 5 7021-8 ####[facility] LABCLIA [id number] [place] [address] MCH (RBC) [Entitic mass] 28.8 pg Normal 26.0-34.0 [facility] Comment on above: Order Comment: Speci men Type: BLOOD SPECIMENOrdering Facility: [facility] Address: [address] [place] [address] Performed By: #### 5 7021-8 ####[facility] LABCLIA [id number] [place] [address] MCHC (RBC) [Mass/Vol] 32.4 g/dL Normal 30.5-36.0 [facility] Comment on above: Order Comment: Speci men Type: BLOOD SPECIMENOrdering Facility: [facility] Address: [address] [place] [address] Performed By: #### 5 7021-8 ####[facility] LABCLIA [id number] [place] [address] MCV (RBC) [Entitic vol] 89.0 fL Normal 80.0-100.0 [facility] Comment on above: Order Comment: Speci men Type: BLOOD SPECIMENOrdering Facility: [facility] Address: [address] [place] [address] Performed By: #### 5 7021-8 ####[facility] LABCLIA [id number] [place] [address] Monocytes (Bld) [#/Vol] 0.52 10*3/uL Normal <0.87 [facility] Comment on above: Order Comment: Speci men Type: BLOOD SPECIMENOrdering Facility: [facility] Address: [address] [place] [address] Performed By: #### 5 7021-8 ####[facility] LABCLIA [id number] [place] [address] Monocytes/100 WBC (Bld) 6.6 % Normal [facility] Comment on above: Order Comment: Speci men Type: BLOOD SPECIMENOrdering Facility: [facility] Address: [address] [place] [address] Performed By: #### 5 7021-8 ####[facility] LABCLIA [id number] [place] [address] Neutrophils (Bld) [#/Vol] 6.73 10*3/uL Normal 1.45-7.50 [facility] Comment on above: Order Comment: Speci men Type: BLOOD SPECIMENOrdering Facility: [facility] Address: [address] [place] [address] Performed By: #### 5 7021-8 ####[facility] LABCLIA [id number] [place] [address] Neutrophils/100 WBC (Bld) 85.9 % Normal [facility] Comment on above: Order Comment: Speci men Type: BLOOD SPECIMENOrdering Facility: [facility] Address: [address] [place] [address] Performed By: #### 5 7021-8 ####[facility] LABCLIA [id number] [place] [address] Nucleated RBC (Bld) [#/Vol] 10*3/uL Normal <0.01 [facility] Comment on above: Order Comment: Speci men Type: BLOOD SPECIMENOrdering Facility: [facility] Address: [address] [address] Performed By: #### 5 7021-8 ####[facility] LABCLIA [id number] [place] [address] Nucleated RBC/100 WBC (Bld) [Ratio] 0.0 /100 WBC Normal [facility] Comment on above: Order Comment: Speci men Type: BLOOD SPECIMENOrdering Facility: [facility] Address: [address] [address] Performed By: #### 5 7021-8 ####[facility] LABCLIA [id number] [place] [address] Platelet mean volume (Bld) [Entitic vol] 10.1 fL Normal 9.0-12.7 [facility] Comment on above: Order Comment: Speci men Type: BLOOD SPECIMENOrdering Facility: [facility] Address: [address] [address] Performed By: #### 5 7021-8 ####[facility] LABCLIA [id number] [place] [address] Platelets (Bld) [#/Vol] 146 10*3/uL Low 150-400 [facility] Comment on above: Order Comment: Speci men Type: BLOOD SPECIMENOrdering Facility: [facility] Address: [address] [address] Performed By: #### 5 7021-8 ####[facility] LABCLIA [id number] [place] [address] RBC (Bld) [#/Vol] 4.62 10*6/uL Normal 4.20-6.00 [place] Comment on above: Order Comment: Speci men Type: BLOOD SPECIMENOrdering Facility: [facility] Address: [address] [address] Performed By: #### 5 7021-8 ####[facility] LABCLIA [id number] [place] [address] WBC (Bld) [#/Vol] 7.83 10*3/uL Normal 3.70-11.00 [place] Comment on above: Order Comment: Speci men Type: BLOOD SPECIMENOrdering Facility: [facility] Address: [address] [place] [address] Performed By: #### 5 7021-8 ####[facility] LABCLIA [id number] [place] [address] CNOVSPon 07-08-2023 CNOVSP Normal [facility] metabolic 2000 panelon 07-08-2023 Albumin [Mass/Vol] 3.9 g/dL 3.9 - 4.9 g/dL [facility] ALP [Catalytic activity/Vol] 228 U/L High 38 - 113 U/L [facility] ALT [Catalytic activity/Vol] 19 U/L 10 - 54 U/L [facility] Anion gap [Moles/Vol] 11 mmol/L 9 - 18 mmol/L [facility] AST [Catalytic activity/Vol] 17 U/L 14 - 40 U/L [facility] Bilirubin [Mass/Vol] 0.3 mg/dL 0.2 - 1 .3 mg/dL [facility] Calcium [Mass/Vol] 9.3 mg/dL 8.5 - 10. 2 mg/dL [facility] Chloride [Moles/Vol] 102 mmol/L 97 - 10 5 mmol/L [facility] CO2 [Moles/Vol] 22 mmol/L 22 - 30 mmol/L [facility] Creatinine [Mass/Vol] 0.90 mg/dL 0.73 - 1.22 mg/dL [facility] Estimated Glomerular Filtration Rate 94 mL/min/1.73m >=60 mL/min/1.7 3m [facility] Glucose [Mass/Vol] 119 mg/dL High 74 - 99 mg/dL [facility] Potassium [Moles/Vol] 4.2 mmol/L 3.7 - 5.1 mmol/L [facility] Protein [Mass/Vol] 6.9 g/dL 6.3 - 8.0 g/dL [facility] Sodium [Moles/Vol] 135 mmol/L Low 136 - 144 mmol/L [facility] Urea nitrogen [Mass/Vol] 15 mg/dL 9 - 24 mg/dL [facility] Albumin [Mass/Vol] 3.9 g/dL Normal 3.9-4.9 [facility] Comment on above: Order Comment: Speci men Type: BLOOD SPECIMENOrdering Facility: [facility] Address: [address] [place] [address] Performed By: #### 2 4323-8, 308-1 ####[facility] LABCLIA [id number] [place] [address] ALP [Catalytic activity/Vol] 228 U/L High 38-113 [facility] Comment on above: Order Comment: Speci men Type: BLOOD SPECIMENOrdering Facility: [facility] Address: [address] [place] [address] Performed By: #### 2 4323-8, 3083- ####[facility] LABCLIA [id number] [place] [address] ALT [Catalytic activity/Vol] 19 U/L Normal 10-54 [facility] Comment on above: Order Comment: Speci men Type: BLOOD SPECIMENOrdering Facility: [facility] Address: [address] [place] [address] Performed By: #### 2 4323-8, 3083- ####[facility] LABCLIA [id number] [place] [address] Anion gap [Moles/Vol] 11 mmol/L Normal 9-18 [facility] Comment on above: Order Comment: Speci men Type: BLOOD SPECIMENOrdering Facility: [facility] Address: [address] [place] [address] Performed By: #### 2 4323-8, 3084-1 ####[facility] LABCLIA [id number] [place] [address] AST [Catalytic activity/Vol] 17 U/L Normal 14-40 [facility] Comment on above: Order Comment: Speci men Type: BLOOD SPECIMENOrdering Facility: [facility] Address: [address] [address] Performed By: #### 2 4323-8, 3083- ####[facility] LABCLIA [id number] [place] [address] Bilirubin [Mass/Vol] 0.3 mg/dL Normal 0.2-1.3 [facility] Comment on above: Order Comment: Speci men Type: BLOOD SPECIMENOrdering Facility: [facility] Address: [address] [address] Performed By: #### 2 4323-8, 3083-11 ####[facility] LABIA [id number] [place] [address] Calcium [Mass/Vol] 9.3 mg/dL Normal 8.5-10.2 [facility] Comment on above: Order Comment: Speci men Type: BLOOD SPECIMENOrdering Facility: [facility] Address: [address] [address] Performed By: #### 2 4323-8, 3083-11 ####[facility] LABIA [id number] [place] [address] Chloride [Moles/Vol] 102 mmol/L Normal 97-105 [facility] Comment on above: Order Comment: Speci men Type: BLOOD SPECIMENOrdering Facility: [facility] Address: [address] [address] Performed By: #### 2 4323-8, 3083-11 ####[facility] LABIA [id number] [place] [address] CO2 [Moles/Vol] 22 mmol/L Normal 22-30 [facility] Comment on above: Order Comment: Speci men Type: BLOOD SPECIMENOrdering Facility: [facility] Address: [address] [address] Performed By: #### 2 4323-8, 3083-11 ####[facility] LABCLIA [id number] [place] [address] Creatinine [Mass/Vol] 0.90 mg/dL Normal 0.73-1.22 [facility] Comment on above: Order Comment: Sara randle Type: BLOOD SPECIMENOrdering Facility: [facility] Address: [address] [address] Performed By: #### 2 4323-8, 3083-11 ####[facility] LABCLIA [id number] [place] [address] Creatinine and Glomerular filtration rate.predicted panel (S/P/Bld) 94 mL/min/1.73m??? Normal >=60 [facility] Comment on above: Order Comment: Sara randle Type: BLOOD SPECIMENOrdering Facility: [facility] Address: [address] [place] [address] Result Comment: Carol mated Glomerular Filtration Rate [...] GFR. Performed By: #### 2 4323-8, 3083-11 ####[facility] LABCLIA [id number] [place] [address] Glucose [Mass/Vol] 119 mg/dL High 74-99 [facility] Comment on above: Order Comment: Sara randle Type: BLOOD SPECIMENOrdering Facility: [facility] Address: [address] [phone] Result Comment: The [place] [employer] (ADA) provides guidance for cutoff [...] Standards of Medical Care in Diabetes 2016, [place] [employer]. Diabetes Care. 2016.39(Suppl 1). Performed By: #### 2 4323-8, 3083- ####[facility] LABCLIA [id number] [place] [address] Potassium [Moles/Vol] 4.2 mmol/L Normal 3.7-5.1 [facility] Comment on above: Order Comment: Speci men Type: BLOOD SPECIMENOrdering Facility: [facility] Address: [address] [place] [address] Performed By: #### 2 4323-8, 3083-11 ####[facility] LABIA [id number] [place] [address] Protein [Mass/Vol] 6.9 g/dL Normal 6.3-8.0 [facility] Comment on above: Order Comment: Speci men Type: BLOOD SPECIMENOrdering Facility: [facility] Address: [address] [place] [address] Performed By: #### 2 4323-8, 3083-11 ####[facility] LABIA [id number] [place] [address] Sodium [Moles/Vol] 135 mmol/L Low 136-144 [facility] Comment on above: Order Comment: Speci men Type: BLOOD SPECIMENOrdering Facility: [facility] Address: [address] [address] Performed By: #### 2 4323-8, 3083-11 ####[facility] LABCLIA [id number] [place] [address] Urea nitrogen [Mass/Vol] 15 mg/dL Normal 9-24 [facility] Comment on above: Order Comment: Speci men Type: BLOOD SPECIMENOrdering Facility: [facility] Address: [place] [address] Performed By: #### 2 4323-8, 3084-1 ####[facility] LABCLIA [id number] [place] [address] Laboratory - Chemistry and C hemistry - challengeon 07-08-2023 Urate [Mass/Vol] 5.7 mg/dL 4.0 - 8.1 mg/dL [facility] Urate SerPl-ncon Urate [Mass/Vol] 5.7 mg/dL Normal 4.0-8.1 [facility] Comment on above: Order Comment: Speci men Type: BLOOD SPECIMENOrdering Facility: [facility] Address: [address] [phone] Performed By: #### 2 4323-8, 3084-1 ####[facility] LABCLIA [id number] [place] [address] CNPNon 07-02-2023 CNPN Normal [facility] CNPNon 06-27-2023 CNPN Normal [facility] CNPNon 06-25-2023 CNPN Normal [facility] Basic metabolic 2000 panelon 06-19-2023 Anion gap [Moles/Vol] 9 mmol/L 9 - 18 mmol/L [facility] Calcium [Mass/Vol] 9.0 mg/dL 8.5 - 10. 2 mg/dL [facility] Chloride [Moles/Vol] 102 mmol/L 97 - 10 5 mmol/L [facility] CO2 [Moles/Vol] 25 mmol/L 22 - 30 mmol/L [facility] Creatinine [Mass/Vol] 0.98 mg/dL 0.73 - 1.22 mg/dL [facility] Estimated Glomerular Filtration Rate 85 mL/min/1.73m >=60 mL/min/1.7 3m [facility] Glucose [Mass/Vol] 95 mg/dL 74 - 99 mg/dL [facility] Potassium [Moles/Vol] 4.1 mmol/L 3.7 - 5.1 mmol/L [facility] Sodium [Moles/Vol] 136 mmol/L 136 - 144 mmol/L [facility] Urea nitrogen [Mass/Vol] 19 mg/dL 9 - 24 mg/dL [facility] Anion gap [Moles/Vol] 9 mmol/L Normal 9-18 [facility] Comment on above: Order Comment: Speci men Type: BLOOD SPECIMENOrdering Facility: [facility] Address: [address] [place] [address] Performed By: #### 2 4321-2, 308-1 ####[facility] LABCLIA [id number] [place] [address] Calcium [Mass/Vol] 9.0 mg/dL Normal 8.5-10.2 [facility] Comment on above: Order Comment: Speci men Type: BLOOD SPECIMENOrdering Facility: [facility] Address: [address] [place] [address] Performed By: #### 2 4321-2, 3083- ####[facility] LABCLIA [id number] [place] [address] Chloride [Moles/Vol] 102 mmol/L Normal 97-105 [facility] Comment on above: Order Comment: Speci men Type: BLOOD SPECIMENOrdering Facility: [facility] Address: [address] [place] [address] Performed By: #### 2 4321-2, 3083- ####[facility] LABCLIA [id number] [place] [address] CO2 [Moles/Vol] 25 mmol/L Normal 22-30 [facility] Comment on above: Order Comment: Speci men Type: BLOOD SPECIMENOrdering Facility: [facility] Address: [address] [place] [address] Performed By: #### 2 4321-2, 308-1 ####[facility] LABCLIA [id number] [place] [address] Creatinine [Mass/Vol] 0.98 mg/dL Normal 0.73-1.22 [facility] Comment on above: Order Comment: Sara randle Type: BLOOD SPECIMENOrdering Facility: [facility] Address: [address] [phone] Performed By: #### 2 4321-2, 3084-1 ####[facility] LABCLIA [id number] [place] [address] Creatinine and Glomerular filtration rate.predicted panel (S/P/Bld) 85 mL/min/1.73m??? Normal >=60 [facility] Comment on above: Order Comment: Sara randle Type: BLOOD SPECIMENOrdering Facility: [facility] Address: [address] [address] Result Comment: Carol mated Glomerular Filtration Rate [...] actual GFR. Performed By: #### 2 4321-2, 3083-1 ####[facility] LABCLIA [id number] [place] [address] Glucose [Mass/Vol] 95 mg/dL Normal 74-99 [facility] Comment on above: Order Comment: Sara randle Type: BLOOD SPECIMENOrdering Facility: [facility] Address: [address] [address] Result Comment: The [place] [employer] (ADA) provides guidance for cutoff [...] Standards of Medical Care in Diabetes 2016, [place] [employer]. Diabetes Care. 2016.39(Suppl 1). Performed By: #### 2 4321-2, 3084-1 ####[facility] LABCLIA [id number] [place] [address] Potassium [Moles/Vol] 4.1 mmol/L Normal 3.7-5.1 [facility] Comment on above: Order Comment: Speci men Type: BLOOD SPECIMENOrdering Facility: [facility] Address: [address] [place] [address] Performed By: #### 2 4321-2, 3084-1 ####[facility] LABIA [id number] [place] [address] Sodium [Moles/Vol] 136 mmol/L Normal 136-144 [facility] Comment on above: Order Comment: Speci men Type: BLOOD SPECIMENOrdering Facility: [facility] Address: [address] [place] [address] Performed By: #### 2 4321-2, 3083-1 ####[facility] LABIA [id number] [place] [address] Urea nitrogen [Mass/Vol] 19 mg/dL Normal 9-24 [facility] Comment on above: Order Comment: Speci men Type: BLOOD SPECIMENOrdering Facility: [facility] Address: [address] [address] Performed By: #### 2 4321-2, 3083-1 ####[facility] LABIA [id number] [place] [address] CBC W Auto Differential pane l (Bld)on 06-19-2023 Basophils (Bld) [#/Vol] 0.07 10*3/uL <0.11 k/uL [facility] Basophils/100 WBC (Bld) 0.7 % [facility] Differential cell count method Nom (Bld) Auto [facility] Eosinophils (Bld) [#/Vol] 0.39 10*3/uL <0.46 k/uL [facility] Eosinophils/100 WBC (Bld) 4.1 % [facility] Erythrocyte distribution width (RBC) [Ratio] 16.4 % High 11.5 - 15.0 % [facility] Hematocrit (Bld) [Volume fraction] 40.4 % 39.0 - 51.0 % [facility] Hemoglobin (Bld) [Mass/Vol] 13.2 g/dL 13.0 - 17.0 g/dL [facility] Immature granulocytes (Bld) [#/Vol] 0.09 10*3/uL <0.10 k/uL [facility] Immature granulocytes/100 WBC (Bld) 0.9 % [facility] Lymphocytes (Bld) [#/Vol] 0.15 10*3/uL Low 1.00 - 4.00 k/uL [facility] Lymphocytes/100 WBC (Bld) 1.6 % [facility] MCH (RBC) [Entitic mass] 29.8 pg 26.0 - 34.0 pg [facility] MCHC (RBC) [Mass/Vol] 32.7 g/dL 30.5 - 36.0 g/dL [facility] MCV (RBC) [Entitic vol] 91.2 fL 80.0 - 100.0 fL [facility] Monocytes (Bld) [#/Vol] 1.13 10*3/uL High <0.87 k/uL [facility] Monocytes/100 WBC (Bld) 11.9 % [facility] Neutrophils (Bld) [#/Vol] 7.70 10*3/uL High 1.45 - 7.50 k/uL [facility] Neutrophils/100 WBC (Bld) 80.8 % [facility] Nucleated RBC (Bld) [#/Vol] <0.01 k/uL [facility] Nucleated RBC/100 WBC (Bld) [Ratio] 0.0 /100 WBC [facility] Platelet mean volume (Bld) [Entitic vol] 9.5 fL 9.0 - 12.7 fL [facility] Platelets (Bld) [#/Vol] 217 10*3/uL 150 - 400 k/uL [facility] RBC (Bld) [#/Vol] 4.43 10*6/uL 4.20 - 6.00 m/uL [facility] WBC (Bld) [#/Vol] 9.53 10*3/uL 3.70 - 11.00 k/uL [facility] Basophils (Bld) [#/Vol] 0.07 10*3/uL Normal <0.11 [facility] Comment on above: Order Comment: Speci men Type: BLOOD SPECIMENOrdering Facility: [facility] Address: [address] [address] Performed By: #### 5 7021-8 ####[facility] LABCLIA [id number] [place] [address] Basophils/100 WBC (Bld) 0.7 % Normal [facility] Comment on above: Order Comment: Speci men Type: BLOOD SPECIMENOrdering Facility: [facility] Address: [address] [place] [address] Performed By: #### 5 7021-8 ####[facility] LABCLIA [id number] [place] [address] Differential cell count method Nom (Bld) Auto Normal [facility] Comment on above: Order Comment: Speci men Type: BLOOD SPECIMENOrdering Facility: [facility] Address: [address] [address] Performed By: #### 5 7021-8 ####[facility] LABCLIA [id number] [place] [address] Eosinophils (Bld) [#/Vol] 0.39 10*3/uL Normal <0.46 [facility] Comment on above: Order Comment: Speci men Type: BLOOD SPECIMENOrdering Facility: [facility] Address: [address] [address] Performed By: #### 5 7021-8 ####[facility] LABCLIA [id number] [place] [address] Eosinophils/100 WBC (Bld) 4.1 % Normal [facility] Comment on above: Order Comment: Speci men Type: BLOOD SPECIMENOrdering Facility: [facility] Address: [address] [place] [address] Performed By: #### 5 7021-8 ####[facility] LABCLIA [id number] [place] [address] Erythrocyte distribution width (RBC) [Ratio] 16.4 % High 11.5-15.0 [facility] Comment on above: Order Comment: Speci men Type: BLOOD SPECIMENOrdering Facility: [facility] Address: [address] [place] [address] Performed By: #### 5 7021-8 ####[facility] LABCLIA [id number] [place] [address] Hematocrit (Bld) [Volume fraction] 40.4 % Normal 39.0-51.0 [facility] Comment on above: Order Comment: Speci men Type: BLOOD SPECIMENOrdering Facility: [facility] Address: [address] [place] [address] Performed By: #### 5 7021-8 ####[facility] LABIA [id number] [place] [address] Hemoglobin (Bld) [Mass/Vol] 13.2 g/dL Normal 13.0-17.0 [facility] Comment on above: Order Comment: Speci men Type: BLOOD SPECIMENOrdering Facility: [facility] Address: [address] [place] [address] Performed By: #### 5 7021-8 ####[facility] LABIA [id number] [place] [address] Immature granulocytes (Bld) [#/Vol] 0.09 10*3/uL Normal <0.10 [facility] Comment on above: Order Comment: Speci men Type: BLOOD SPECIMENOrdering Facility: [facility] Address: [address] [place] [address] Performed By: #### 5 7021-8 ####[facility] LABIA [id number] [place] [address] Immature granulocytes/100 WBC (Bld) 0.9 % Normal [facility] Comment on above: Order Comment: Speci men Type: BLOOD SPECIMENOrdering Facility: [facility] Address: [address] [address] Performed By: #### 5 7021-8 ####[facility] LABCLIA [id number] [place] [address] Lymphocytes (Bld) [#/Vol] 0.15 10*3/uL Low 1.00-4.00 [facility] Comment on above: Order Comment: Speci men Type: BLOOD SPECIMENOrdering Facility: [facility] Address: [address] [place] [address] Performed By: #### 5 7021-8 ####[facility] LABCLIA [id number] [place] [address] Lymphocytes/100 WBC (Bld) 1.6 % Normal [facility] Comment on above: Order Comment: Speci men Type: BLOOD SPECIMENOrdering Facility: [facility] Address: [address] [place] [address] Performed By: #### 5 7021-8 ####[facility] LABIA [id number] [place] [address] MCH (RBC) [Entitic mass] 29.8 pg Normal 26.0-34.0 [facility] Comment on above: Order Comment: Speci men Type: BLOOD SPECIMENOrdering Facility: [facility] Address: [address] [place] [address] Performed By: #### 5 7021-8 ####[facility] LABCLIA [id number] [place] [address] MCHC (RBC) [Mass/Vol] 32.7 g/dL Normal 30.5-36.0 [facility] Comment on above: Order Comment: Speci men Type: BLOOD SPECIMENOrdering Facility: [facility] Address: [address] [place] [address] Performed By: #### 5 7021-8 ####[facility] LABCLIA [id number] [place] [address] MCV (RBC) [Entitic vol] 91.2 fL Normal 80.0-100.0 [facility] Comment on above: Order Comment: Speci men Type: BLOOD SPECIMENOrdering Facility: [facility] Address: [address] [place] [address] Performed By: #### 5 7021-8 ####[facility] LABCLIA [id number] [place] [address] Monocytes (Bld) [#/Vol] 1.13 10*3/uL High <0.87 [facility] Comment on above: Order Comment: Speci men Type: BLOOD SPECIMENOrdering Facility: [facility] Address: [address] [place] [address] Performed By: #### 5 7021-8 ####[facility] LABCLIA [id number] [place] [address] Monocytes/100 WBC (Bld) 11.9 % Normal [facility] Comment on above: Order Comment: Speci men Type: BLOOD SPECIMENOrdering Facility: [facility] Address: [address] [place] [address] Performed By: #### 5 7021-8 ####[facility] LABCLIA [id number] [place] [address] Neutrophils (Bld) [#/Vol] 7.70 10*3/uL High 1.45-7.50 [facility] Comment on above: Order Comment: Speci men Type: BLOOD SPECIMENOrdering Facility: [facility] Address: [address] [place] [address] Performed By: #### 5 7021-8 ####[facility] LABCLIA [id number] [place] [address] Neutrophils/100 WBC (Bld) 80.8 % Normal [facility] Comment on above: Order Comment: Speci men Type: BLOOD SPECIMENOrdering Facility: [facility] Address: [address] [address] Performed By: #### 5 7021-8 ####[facility] LABIA [id number] [place] [address] Nucleated RBC (Bld) [#/Vol] 10*3/uL Normal <0.01 [facility] Comment on above: Order Comment: Speci men Type: BLOOD SPECIMENOrdering Facility: [facility] Address: [address] [address] Performed By: #### 5 7021-8 ####[facility] LABCLIA [id number] [place] [address] Nucleated RBC/100 WBC (Bld) [Ratio] 0.0 /100 WBC Normal [facility] Comment on above: Order Comment: Speci men Type: BLOOD SPECIMENOrdering Facility: [facility] Address: [address] [address] Performed By: #### 5 7021-8 ####[facility] LABIA [id number] [place] [address] Platelet mean volume (Bld) [Entitic vol] 9.5 fL Normal 9.0-12.7 [facility] Comment on above: Order Comment: Speci men Type: BLOOD SPECIMENOrdering Facility: [facility] Address: [address] [address] Performed By: #### 5 7021-8 ####[facility] LABCLIA [id number] [place] [address] Platelets (Bld) [#/Vol] 217 10*3/uL Normal 150-400 [facility] Comment on above: Order Comment: Speci men Type: BLOOD SPECIMENOrdering Facility: [facility] Address: [address] [place] [address] Performed By: #### 5 7021-8 ####[facility] LABCLIA [id number] [place] [address] RBC (Bld) [#/Vol] 4.43 10*6/uL Normal 4.20-6.00 [place] Comment on above: Order Comment: Speci men Type: BLOOD SPECIMENOrdering Facility: [facility] Address: [address] [place] [address] Performed By: #### 5 7021-8 ####[facility] LABIA [id number] [place] [address] WBC (Bld) [#/Vol] 9.53 10*3/uL Normal 3.70-11.00 [place] Comment on above: Order Comment: Speci men Type: BLOOD SPECIMENOrdering Facility: [facility] Address: [address] [place] [address] Performed By: #### 5 7021-8 ####[facility] LABIA [id number] [place] [address] CNOVSPon 06-19-2023 CNOVSP Normal [facility] URIC ACID BLOODon 06-19-2023 Urate [Mass/Vol] 4.9 mg/dL 4.0 - 8.1 mg/dL [facility] Urate SerPl-mCncon Urate [Mass/Vol] 4.9 mg/dL Normal 4.0-8.1 [facility] Comment on above: Order Comment: Speci men Type: BLOOD SPECIMENOrdering Facility: [facility] Address: [address] [place] [address] Performed By: #### 2 4321-2, 3084-1 ####[facility] LABIA [id number] [place] [address] Ambulatory Visit Summaryon 0 06-17-2023 Ambulatory Visit Summary KATIA SHAIKH Mk :1955 Visit Date:06/17/2023 Ambulatory Visit Instructions Your [...] reflux disease) Hypothyroidism Inguinal adenopathy Overweight Normal [facility] Ambulatory Visit Summary KATIA SHAIKH :1955 [...] reflux disease) Hypothyroidism Inguinal adenopathy Overweight Normal [facility] General Surgery Office/Clini c Noteon 06-17-2023 General Surgery Office/Clinic Note Chief Complaint post operative follow up HPI Staff 20 day post operative follow up post port insertion. Denies discomfort, no use of pain medication. Denies bleeding or drainage. Port has been accessed once without incident. History of Present Illness 3 weeks s/p right subclavian hzmoem-w-oxbi insertion, doing well; port used once,no problems; [...] Primary malignant neoplasm of skin: Father. Normal [facility] Comment on above: Result Comment: Elec tronically Signed By: MIGUEL LOFTON, Chiquita Mas\Date and Time Signed: 06/17/23 15:19 EDT [facility] 06-12-2023 [facility] Normal [facility] CNCNPATEDon 06-06-2023 CNCNPATED Normal [facility] CBC W Auto Differential pane l (Bld)on 06-05-2023 Basophils (Bld) [#/Vol] 0.04 10*3/uL <0.11 k/uL [facility] Basophils/100 WBC (Bld) 0.3 % [facility] Differential cell count method Nom (Bld) Auto [facility] Eosinophils (Bld) [#/Vol] <0.46 k/uL [facility] Eosinophils/100 WBC (Bld) 0.0 % [facility] Erythrocyte distribution width (RBC) [Ratio] 14.4 % 11.5 - 15.0 % [facility] Hematocrit (Bld) [Volume fraction] 37.1 % Low 39.0 - 51.0 % [facility] Hemoglobin (Bld) [Mass/Vol] 11.8 g/dL Low 13.0 - 17.0 g/dL [facility] Immature granulocytes (Bld) [#/Vol] 0.12 10*3/uL High <0.10 k/uL [facility] Immature granulocytes/100 WBC (Bld) 0.9 % [facility] Lymphocytes (Bld) [#/Vol] 0.56 10*3/uL Low 1.00 - 4.00 k/uL [facility] Lymphocytes/100 WBC (Bld) 4.0 % [facility] MCH (RBC) [Entitic mass] 28.4 pg 26.0 - 34.0 pg [facility] MCHC (RBC) [Mass/Vol] 31.8 g/dL 30.5 - 36.0 g/dL [facility] MCV (RBC) [Entitic vol] 89.4 fL 80.0 - 100.0 fL [facility] Monocytes (Bld) [#/Vol] 0.65 10*3/uL <0.87 k/uL [facility] Monocytes/100 WBC (Bld) 4.6 % [facility] Neutrophils (Bld) [#/Vol] 12.66 10*3/uL High 1.45 - 7.50 k/uL [facility] Neutrophils/100 WBC (Bld) 90.2 % [facility] Nucleated RBC (Bld) [#/Vol] <0.01 k/uL [facility] Nucleated RBC/100 WBC (Bld) [Ratio] 0.0 /100 WBC [facility] Platelet mean volume (Bld) [Entitic vol] 10.1 fL 9.0 - 12.7 fL [facility] Platelets (Bld) [#/Vol] 334 10*3/uL 150 - 400 k/uL [facility] RBC (Bld) [#/Vol] 4.15 10*6/uL Low 4.20 - 6.00 m/uL [facility] WBC (Bld) [#/Vol] 14.03 10*3/uL High 3.70 - 11.00 k/uL [facility] Basophils (Bld) [#/Vol] 0.04 10*3/uL Normal <0.11 [facility] Comment on above: Order Comment: Speci men Type: BLOOD SPECIMENOrdering Facility: [facility] Address: [address] [address] Performed By: #### 5 7021-8 ####[facility] LABCLIA [id number] [place] [address] Basophils/100 WBC (Bld) 0.3 % Normal [facility] Comment on above: Order Comment: Speci men Type: BLOOD SPECIMENOrdering Facility: [facility] Address: [address] [place] [address] Performed By: #### 5 7021-8 ####[facility] LABCLIA [id number] [place] [address] Differential cell count method Nom (Bld) Auto Normal [facility] Comment on above: Order Comment: Speci men Type: BLOOD SPECIMENOrdering Facility: [facility] Address: [address] [place] [address] Performed By: #### 5 7021-8 ####[facility] LABCLIA [id number] [place] [address] Eosinophils (Bld) [#/Vol] 10*3/uL Normal <0.46 [facility] Comment on above: Order Comment: Speci men Type: BLOOD SPECIMENOrdering Facility: [facility] Address: [address] [place] [address] Performed By: #### 5 7021-8 ####[facility] LABCLIA [id number] [place] [address] Eosinophils/100 WBC (Bld) 0.0 % Normal [facility] Comment on above: Order Comment: Speci men Type: BLOOD SPECIMENOrdering Facility: [facility] Address: [address] [place] [address] Performed By: #### 5 7021-8 ####[facility] LABCLIA [id number] [place] [address] Erythrocyte distribution width (RBC) [Ratio] 14.4 % Normal 11.5-15.0 [facility] Comment on above: Order Comment: Speci men Type: BLOOD SPECIMENOrdering Facility: [facility] Address: [address] [place] [address] Performed By: #### 5 7021-8 ####[facility] LABCLIA [id number] [place] [address] Hematocrit (Bld) [Volume fraction] 37.1 % Low 39.0-51.0 [facility] Comment on above: Order Comment: Speci men Type: BLOOD SPECIMENOrdering Facility: [facility] Address: [address] [address] Performed By: #### 5 7021-8 ####[facility] LABCLIA [id number] [place] [address] Hemoglobin (Bld) [Mass/Vol] 11.8 g/dL Low 13.0-17.0 [facility] Comment on above: Order Comment: Speci men Type: BLOOD SPECIMENOrdering Facility: [facility] Address: [address] [address] Performed By: #### 5 7021-8 ####[facility] LABCLIA [id number] [place] [address] Immature granulocytes (Bld) [#/Vol] 0.12 10*3/uL High <0.10 [facility] Comment on above: Order Comment: Speci men Type: BLOOD SPECIMENOrdering Facility: [facility] Address: [address] [address] Performed By: #### 5 7021-8 ####[facility] LABCLIA [id number] [place] [address] Immature granulocytes/100 WBC (Bld) 0.9 % Normal [facility] Comment on above: Order Comment: Speci men Type: BLOOD SPECIMENOrdering Facility: [facility] Address: [address] [address] Performed By: #### 5 7021-8 ####[facility] LABCLIA [id number] [place] [address] Lymphocytes (Bld) [#/Vol] 0.56 10*3/uL Low 1.00-4.00 [facility] Comment on above: Order Comment: Speci men Type: BLOOD SPECIMENOrdering Facility: [facility] Address: [address] [place] [address] Performed By: #### 5 7021-8 ####[facility] LABCLIA [id number] [place] [address] Lymphocytes/100 WBC (Bld) 4.0 % Normal [facility] Comment on above: Order Comment: Speci men Type: BLOOD SPECIMENOrdering Facility: [facility] Address: [address] [place] [address] Performed By: #### 5 7021-8 ####[facility] LABCLIA [id number] [place] [address] MCH (RBC) [Entitic mass] 28.4 pg Normal 26.0-34.0 [facility] Comment on above: Order Comment: Speci men Type: BLOOD SPECIMENOrdering Facility: [facility] Address: [address] [place] [address] Performed By: #### 5 7021-8 ####[facility] LABCLIA [id number] [place] [address] MCHC (RBC) [Mass/Vol] 31.8 g/dL Normal 30.5-36.0 [facility] Comment on above: Order Comment: Speci men Type: BLOOD SPECIMENOrdering Facility: [facility] Address: [address] [place] [address] Performed By: #### 5 7021-8 ####[facility] LABCLIA [id number] [place] [address] MCV (RBC) [Entitic vol] 89.4 fL Normal 80.0-100.0 [facility] Comment on above: Order Comment: Speci men Type: BLOOD SPECIMENOrdering Facility: [facility] Address: [address] [place] [address] Performed By: #### 5 7021-8 ####[facility] LABCLIA [id number] [place] [address] Monocytes (Bld) [#/Vol] 0.65 10*3/uL Normal <0.87 [facility] Comment on above: Order Comment: Speci men Type: BLOOD SPECIMENOrdering Facility: [facility] Address: [address] [place] [address] Performed By: #### 5 7021-8 ####[facility] LABCLIA [id number] [place] [address] Monocytes/100 WBC (Bld) 4.6 % Normal [facility] Comment on above: Order Comment: Speci men Type: BLOOD SPECIMENOrdering Facility: [facility] Address: [address] [place] [address] Performed By: #### 5 7021-8 ####[facility] LABCLIA [id number] [place] [address] Neutrophils (Bld) [#/Vol] 12.66 10*3/uL High 1.45-7.50 [facility] Comment on above: Order Comment: Speci men Type: BLOOD SPECIMENOrdering Facility: [facility] Address: [address] [place] [address] Performed By: #### 5 7021-8 ####[facility] LABCLIA [id number] [place] [address] Neutrophils/100 WBC (Bld) 90.2 % Normal [facility] Comment on above: Order Comment: Speci men Type: BLOOD SPECIMENOrdering Facility: [facility] Address: [address] [place] [address] Performed By: #### 5 7021-8 ####[facility] LABCLIA [id number] [place] [address] Nucleated RBC (Bld) [#/Vol] 10*3/uL Normal <0.01 [facility] Comment on above: Order Comment: Speci men Type: BLOOD SPECIMENOrdering Facility: [facility] Address: [address] [place] [address] Performed By: #### 5 7021-8 ####[facility] LABCLIA [id number] [place] [address] Nucleated RBC/100 WBC (Bld) [Ratio] 0.0 /100 WBC Normal [facility] Comment on above: Order Comment: Speci men Type: BLOOD SPECIMENOrdering Facility: [facility] Address: [address] [place] [address] Performed By: #### 5 7021-8 ####[facility] LABIA [id number] [place] [address] Platelet mean volume (Bld) [Entitic vol] 10.1 fL Normal 9.0-12.7 [facility] Comment on above: Order Comment: Speci men Type: BLOOD SPECIMENOrdering Facility: [facility] Address: [address] [place] [address] Performed By: #### 5 7021-8 ####[facility] LABIA [id number] [place] [address] Platelets (Bld) [#/Vol] 334 10*3/uL Normal 150-400 [facility] Comment on above: Order Comment: Speci men Type: BLOOD SPECIMENOrdering Facility: [facility] Address: [address] [place] [address] Performed By: #### 5 7021-8 ####[facility] LABIA [id number] [place] [address] RBC (Bld) [#/Vol] 4.15 10*6/uL Low 4.20-6.00 [place] Comment on above: Order Comment: Speci men Type: BLOOD SPECIMENOrdering Facility: [facility] Address: [address] [phone] Performed By: #### 5 7021-8 ####[facility] LABCLIA [id number] [place] [address] WBC (Bld) [#/Vol] 14.03 10*3/uL High 3.70-11.00 [facility] Comment on above: Order Comment: Speci men Type: BLOOD SPECIMENOrdering Facility: [facility] Address: [place] [address] Performed By: #### 5 7021-8 ####[facility] LABCLIA [id number] [place] [address] CNOVSPon 06-05-2023 CNOVSP Normal [facility] metabolic 2000 panelon 06-05-2023 Albumin [Mass/Vol] 3.7 g/dL Low 3.9 - 4.9 g/dL [facility] ALP [Catalytic activity/Vol] 235 U/L High 38 - 113 U/L [facility] ALT [Catalytic activity/Vol] 26 U/L 10 - 54 U/L [facility] Anion gap [Moles/Vol] 10 mmol/L 9 - 18 mmol/L [facility] AST [Catalytic activity/Vol] 27 U/L 14 - 40 U/L [facility] Bilirubin [Mass/Vol] 0.2 mg/dL 0.2 - 1 .3 mg/dL [facility] Calcium [Mass/Vol] 9.4 mg/dL 8.5 - 10. 2 mg/dL [facility] Chloride [Moles/Vol] 102 mmol/L 97 - 10 5 mmol/L [facility] CO2 [Moles/Vol] 25 mmol/L 22 - 30 mmol/L [facility] Creatinine [Mass/Vol] 0.96 mg/dL 0.73 - 1.22 mg/dL [facility] Estimated Glomerular Filtration Rate 87 mL/min/1.73m >=60 mL/min/1.7 3m [facility] Glucose [Mass/Vol] 120 mg/dL High 74 - 99 mg/dL [facility] Potassium [Moles/Vol] 4.3 mmol/L 3.7 - 5.1 mmol/L [facility] Protein [Mass/Vol] 7.7 g/dL 6.3 - 8.0 g/dL [facility] Sodium [Moles/Vol] 137 mmol/L 136 - 144 mmol/L [facility] Urea nitrogen [Mass/Vol] 26 mg/dL High 9 - 24 mg/dL [facility] Albumin [Mass/Vol] 3.7 g/dL Low 3.9-4.9 [facility] Comment on above: Order Comment: Speci men Type: BLOOD SPECIMENOrdering Facility: [facility] Address: [address] [address] Performed By: #### 2 4323-8, 3083- ####[facility] LABIA [id number] [place] [address] ALP [Catalytic activity/Vol] 235 U/L High 38-113 [facility] Comment on above: Order Comment: Speci men Type: BLOOD SPECIMENOrdering Facility: [facility] Address: [address] [address] Performed By: #### 2 4323-8, 3083-11 ####[facility]IA [id number] [place] [address] ALT [Catalytic activity/Vol] 26 U/L Normal 10-54 [facility] Comment on above: Order Comment: Speci men Type: BLOOD SPECIMENOrdering Facility: [facility] Address: [address] [address] Performed By: #### 2 4323-8, 3083-11 ####[facility] [id number] [place] [address] Anion gap [Moles/Vol] 10 mmol/L Normal 9-18 [facility] Comment on above: Order Comment: Speci men Type: BLOOD SPECIMENOrdering Facility: [facility] Address: [address] [address] Performed By: #### 2 4323-8, 3083-1 ####[facility] LABCLIA [id number] [place] [address] AST [Catalytic activity/Vol] 27 U/L Normal 14-40 [facility] Comment on above: Order Comment: Speci men Type: BLOOD SPECIMENOrdering Facility: [facility] Address: [address] [place] [address] Performed By: #### 2 4323-8, 308-1 ####[facility] LABCLIA [id number] [place] [address] Bilirubin [Mass/Vol] 0.2 mg/dL Normal 0.2-1.3 [facility] Comment on above: Order Comment: Speci men Type: BLOOD SPECIMENOrdering Facility: [facility] Address: [address] [place] [address] Performed By: #### 2 4323-8, 3083- ####[facility] LABCLIA [id number] [place] [address] Calcium [Mass/Vol] 9.4 mg/dL Normal 8.5-10.2 [facility] Comment on above: Order Comment: Speci men Type: BLOOD SPECIMENOrdering Facility: [facility] Address: [address] [place] [address] Performed By: #### 2 4323-8, 3083- ####[facility] LABCLIA [id number] [place] [address] Chloride [Moles/Vol] 102 mmol/L Normal 97-105 [facility] Comment on above: Order Comment: Speci men Type: BLOOD SPECIMENOrdering Facility: [facility] Address: [address] [place] [address] Performed By: #### 2 4323-8, 308-1 ####[facility] LABCLIA [id number] [place] [address] CO2 [Moles/Vol] 25 mmol/L Normal 22-30 [facility] Comment on above: Order Comment: Speci men Type: BLOOD SPECIMENOrdering Facility: [facility] Address: [address] [address] Performed By: #### 2 4323-8, 3083-11 ####[facility] LABCLIA [id number] [place] [address] Creatinine [Mass/Vol] 0.96 mg/dL Normal 0.73-1.22 [facility] Comment on above: Order Comment: Speci men Type: BLOOD SPECIMENOrdering Facility: [facility] Address: [address] [address] Performed By: #### 2 4323-8, 3083-11 ####[facility] LABCLIA [id number] [place] [address] ESTIMATED GLOMERULAR FILTRATION RATE 87 mL/min/1.73m??? Normal >=60 [facility] Comment on above: Order Comment: Speci men Type: BLOOD SPECIMENOrdering Facility: [facility] Address: [address] [place] [address] Result Comment: Carol mated Glomerular Filtration Rate [...] GFR. Performed By: #### 2 4323-8, 3083-11 ####[facility] LABCLIA [id number] [place] [address] Glucose [Mass/Vol] 120 mg/dL High 74-99 [facility] Comment on above: Order Comment: Speci men Type: BLOOD SPECIMENOrdering Facility: [facility] Address: [address] [address] Result Comment: The [place] [employer] (ADA) provides guidance for cutoff [...] Standards of Medical Care in Diabetes 2016, [place] [employer]. Diabetes Care. 2016.39(Suppl 1). Performed By: #### 2 4323-8, 3083-11 ####[facility] LABCLIA [id number] [place] [address] Potassium [Moles/Vol] 4.3 mmol/L Normal 3.7-5.1 [facility] Comment on above: Order Comment: Speci men Type: BLOOD SPECIMENOrdering Facility: [facility] Address: [address] [place] [address] Performed By: #### 2 43201-08, 3083-11 ####[facility] LABCLIA [id number] [place] [address] Protein [Mass/Vol] 7.7 g/dL Normal 6.3-8.0 [facility] Comment on above: Order Comment: Speci men Type: BLOOD SPECIMENOrdering Facility: [facility] Address: [address] [place] [address] Performed By: #### 2 4328, 3083-11 ####[facility] LABCLIA [id number] [place] [address] Sodium [Moles/Vol] 137 mmol/L Normal 136-144 [facility] Comment on above: Order Comment: Speci men Type: BLOOD SPECIMENOrdering Facility: [facility] Address: [address] [address] Performed By: #### 2 43238, 3083-11 ####[facility] LABCLIA [id number] [place] [address] Urea nitrogen [Mass/Vol] 26 mg/dL High 9-24 [facility] Comment on above: Order Comment: Speci men Type: BLOOD SPECIMENOrdering Facility: [facility] Address: [address] [address] Performed By: #### 2 4323-8, 3084-1 ####[facility] LABCLIA [id number] [place] [id number] Laboratory - Chemistry and C hemistry - challengeon 06-05-2023 Urate [Mass/Vol] 8.6 mg/dL High 4.0 - 8.1 mg/dL [facility] Urate SerPl-mCncon Urate [Mass/Vol] 8.6 mg/dL High 4.0-8.1 [facility] Comment on above: Order Comment: Speci men Type: BLOOD SPECIMENOrdering Facility: [facility] Address: [address] [address] Performed By: #### 2 4323-8, 3084-1 ####[facility] LABCLIA [id number] [place] [address] ESR Westergren method (Bld) [Velocity]on 05-14-2023 ESR (Bld) [Velocity] 40 mm/h High 0 - 15 mm/hr [facility] CBC W Auto Differential pane l (Bld)on 05-13-2023 Basophils (Bld) [#/Vol] 0.08 10*3/uL <0.11 k/uL [facility] Basophils/100 WBC (Bld) 0.8 % [facility] Differential cell count method Nom (Bld) Auto [facility] Eosinophils (Bld) [#/Vol] 0.27 10*3/uL <0.46 k/uL [facility] Eosinophils/100 WBC (Bld) 2.8 % [facility] Erythrocyte distribution width (RBC) [Ratio] 14.1 % 11.5 - 15.0 % [facility] Hematocrit (Bld) [Volume fraction] 42.3 % 39.0 - 51.0 % [facility] Hemoglobin (Bld) [Mass/Vol] 13.4 g/dL 13.0 - 17.0 g/dL [facility] Immature granulocytes (Bld) [#/Vol] 0.05 10*3/uL <0.10 k/uL [facility] Immature granulocytes/100 WBC (Bld) 0.5 % [facility] Lymphocytes (Bld) [#/Vol] 0.69 10*3/uL Low 1.00 - 4.00 k/uL [facility] Lymphocytes/100 WBC (Bld) 7.1 % [facility] MCH (RBC) [Entitic mass] 29.1 pg 26.0 - 34.0 pg [facility] MCHC (RBC) [Mass/Vol] 31.7 g/dL 30.5 - 36.0 g/dL [facility] MCV (RBC) [Entitic vol] 92.0 fL 80.0 - 100.0 fL [facility] Monocytes (Bld) [#/Vol] 1.11 10*3/uL High <0.87 k/uL [facility] Monocytes/100 WBC (Bld) 11.5 % [facility] Neutrophils (Bld) [#/Vol] 7.47 10*3/uL 1.45 - 7.50 k/uL [facility] Neutrophils/100 WBC (Bld) 77.3 % [facility] Nucleated RBC (Bld) [#/Vol] <0.01 k/uL [facility] Nucleated RBC/100 WBC (Bld) [Ratio] 0.0 /100 WBC [facility] Platelet mean volume (Bld) [Entitic vol] 9.7 fL 9.0 - 12.7 fL [facility] Platelets (Bld) [#/Vol] 306 10*3/uL 150 - 400 k/uL [facility] RBC (Bld) [#/Vol] 4.60 10*6/uL 4.20 - 6.00 m/uL [facility] WBC (Bld) [#/Vol] 9.67 10*3/uL 3.70 - 11.00 k/uL [facility] Comprehensive metabolic 2000 panelon 05-13-2023 Albumin [Mass/Vol] 3.9 g/dL 3.9 - 4.9 g/dL [facility] ALP [Catalytic activity/Vol] 244 U/L High 38 - 113 U/L [facility] ALT [Catalytic activity/Vol] 19 U/L 10 - 54 U/L [facility] Anion gap [Moles/Vol] 12 mmol/L 9 - 18 mmol/L [facility] AST [Catalytic activity/Vol] 22 U/L 14 - 40 U/L [facility] Bilirubin [Mass/Vol] 0.4 mg/dL 0.2 - 1 .3 mg/dL [facility] Calcium [Mass/Vol] 9.5 mg/dL 8.5 - 10. 2 mg/dL [facility] Chloride [Moles/Vol] 103 mmol/L 97 - 10 5 mmol/L [facility] CO2 [Moles/Vol] 24 mmol/L 22 - 30 mmol/L [facility] Creatinine [Mass/Vol] 0.89 mg/dL 0.73 - 1.22 mg/dL [facility] Estimated Glomerular Filtration Rate 95 mL/min/1.73m >=60 mL/min/1.7 3m [facility] Glucose [Mass/Vol] 96 mg/dL 74 - 99 mg/dL [facility] Potassium [Moles/Vol] 4.4 mmol/L 3.7 - 5.1 mmol/L [facility] Protein [Mass/Vol] 7.9 g/dL 6.3 - 8.0 g/dL [facility] Sodium [Moles/Vol] 139 mmol/L 136 - 144 mmol/L [facility] Urea nitrogen [Mass/Vol] 19 mg/dL 9 - 24 mg/dL [facility] LD LACTATE DEHYDROon 023 LDH [Catalytic activity/Vol] 420 U/L High 135 - 225 U/L [facility] CBC with Auto Differentialon 04-02-2023 Basophils (Bld) [#/Vol] 0.08 10*3/uL [facility] Basophils/100 WBC (Bld) 1 % 0 - 2 % [facility] Eosinophils (Bld) [#/Vol] 0.23 10*3/uL [facility] Eosinophils/100 WBC (Bld) 2 % 1 - 4 % [facility] Erythrocyte distribution width (RBC) [Ratio] 13.5 % 11.8 - 14.4 % [facility] Hematocrit (Bld) [Volume fraction] 42.8 % 40.7 - 50.3 % [facility] Hemoglobin (Bld) [Mass/Vol] 14.3 g/dL 13.0 - 17.0 g/dL [facility] Immature granulocytes (Bld) [#/Vol] 0.04 10*3/uL [facility] Immature granulocytes/100 WBC (Bld) 0 % 0 [facility] Interpretation and review of laboratory results Abnormal [facility] Lymphocytes/100 WBC (Bld) 6 % Low 24 - 43 % [facility] Lymphocytes/100 WBC (Bld) 0.65 % Low [facility] MCH (RBC) [Entitic mass] 30.6 pg 25.2 - 33.5 pg [facility] MCHC (RBC) [Mass/Vol] 33.4 g/dL 28.4 - 34.8 g/dL [facility] MCV (RBC) [Entitic vol] 91.5 fL 82.6 - 102.9 fL [facility] Monocytes/100 WBC (Bld) 12 % 3 - 12 % [facility] Monocytes/100 WBC (Bld) 1.32 % High [facility] Neutrophils/100 WBC (Bld) 79 % High 36 - 65 % [facility] NRBC Automated 0.0 0.0 per 100 WBC [facility] Platelet mean volume (Bld) [Entitic vol] 10.2 fL 8.1 - 13.5 fL [facility] Platelets (Bld) [#/Vol] 195 10*3/uL [facility] RBC (Bld) [#/Vol] 4.68 10*6/uL 4.21 - 5.77 m/uL [facility] Segmented neutrophils/100 WBC (Bld) 8.84 % High [facility] WBC other (Bld) [#/Vol] 11.2 [facility] CBC with Diffon 04-02-2023 Abs. Basophil 0.08 k/uL Normal 0.00-0.20 [facility] Comment on above: Performed By: #### C P, CDP #### [facility] [address] [place] [address] [place] [address] Pension Agent: Rasta Mohr MD Abs.Imm.Granulocyte 0.04 k/uL Normal 0.00-0.30 [facility] Comment on above: Performed By: #### C P, CDP #### [facility] [address] [place] [address] [address] [place], [place] [address] Pension Agent: Rasta Mohr MD Abs.Neutrophil (Seg) 8.84 k/uL High 1.50-8.10 [facility] Comment on above: Performed By: #### C P, CDP #### [address] [place], [id number] Pension Agent: Rasta Mohr MD Basophils/100 WBC (Bld) 1 % Normal 0-2 [facility] Comment on above: Performed By: #### C P, CDP #### [address] [place], [id number] Pension Agent: Rasta Mohr MD Eosinophils (Bld) [#/Vol] 0.23 10*3/uL Normal 0.00-0.44 [facility] Comment on above: Performed By: #### C P, CDP #### [address] [place], [id number] Pension Agent: Rasta Mohr MD Eosinophils/100 WBC (Bld) 2 % Normal 1-4 [facility] Comment on above: Performed By: #### C P, CDP #### [address] [place], [id number] Pension Agent: Rasta Mohr MD Erythrocyte distribution width (RBC) [Ratio] 13.5 % Normal 11.8-14.4 [facility] Comment on above: Performed By: #### C P, CDP #### [address] [place], [id number] Pension Agent: Rasta Mohr MD Hematocrit (Bld) [Volume fraction] 42.8 % Normal 40.7-50.3 [facility] Comment on above: Performed By: #### C P, CDP #### [address] [place], [id number] Pension Agent: Rasta Mohr MD Hemoglobin (Bld) [Mass/Vol] 14.3 g/dL Normal 13.0-17.0 [facility] Comment on above: Performed By: #### C P, CDP #### [address] [place], [id number] Pension Agent: Rasta Mohr MD Immature granulocytes/100 WBC (Bld) 0 % Normal 0 [facility] Comment on above: Performed By: #### C P, CDP #### [address] [place], [id number] Pension Agent: Rasta Mohr MD Lymphocytes (Bld) [#/Vol] 0.65 10*3/uL Low 1.10-3.70 [facility] Comment on above: Performed By: #### C P, CDP #### [address] [place], [id number] Pension Agent: Rasta Mohr MD Lymphocytes/100 WBC (Bld) 6 % Low 24-43 [facility] Comment on above: Performed By: #### C P, CDP #### [address] [place], [id number] Pension Agent: Rasta Mohr MD MCH (RBC) [Entitic mass] 30.6 pg Normal 25.2-33.5 [facility] Comment on above: Performed By: #### C P, CDP #### [address] [place], [id number] Pension Agent: Rasta Mohr MD MCHC (RBC) [Mass/Vol] 33.4 g/dL Normal 28.4-34.8 [facility] Comment on above: Performed By: #### C P, CDP #### [facility] [address] [place], [place] [id number] Pension Agent: Rasta Mohr MD MCV (RBC) [Entitic vol] 91.5 fL Normal 82.6-102.9 [facility] Comment on above: Performed By: #### C P, CDP #### [facility] [address] [place], [place] [id number] Pension Agent: Rasta Mohr MD Monocytes (Bld) [#/Vol] 1.32 10*3/uL High 0.10-1.20 [facility] Comment on above: Performed By: #### C P, CDP #### [address] [place], [place] [id number] Pension Agent: Rasta Mohr MD Monocytes/100 WBC (Bld) 12 % Normal 3-12 [facility] Comment on above: Performed By: #### C P, CDP #### [address] [place], [place] [id number] Pension Agent: Rasta Mohr MD Neutrophil (Seg) 79 % High 36-65 [facility] Comment on above: Performed By: #### C P, CDP #### [address] [place], [place] [id number] Pension Agent: Rasta Mohr MD NRBC Automated 0.0 per 100 WBC Normal 0.0 [facility] Comment on above: Performed By: #### C P, CDP #### [address] [place], [place] [id number] Pension Agent: Rasta Mohr MD Platelet mean volume (Bld) [Entitic vol] 10.2 fL Normal 8.1-13.5 [facility] Comment on above: Performed By: #### C P, CDP #### [address] [place] [address] Pension Agent: Rasta Mohr MD Platelets (Bld) [#/Vol] 195 10*3/uL Normal 138-453 [facility] Comment on above: Performed By: #### C P, CDP #### [facility] [address] [place], [place] [id number] Pension Agent: Rasta Mohr MD RBC (Bld) [#/Vol] 4.68 10*6/uL Normal 4.21-5.77 [facility] Comment on above: Performed By: #### C P, CDP #### [facility] [address] [place] [address] Pension Agent: Rasta Mohr MD WBC (Bld) [#/Vol] 11.2 10*3/uL Normal 3.5-11.3 [facility] Comment on above: Performed By: #### C P, CDP #### [facility] [address] [place], [place] [id number] Pension Agent: Rasta Mohr MD Comp Metabolic Profon 2022 Albumin [Mass/Vol] 3.9 g/dL Normal 3.5-5.2 [facility] Comment on above: Performed By: #### C P, CDP #### [facility] [address] [place], [place] [id number] Pension Agent: Rasta Mohr MD Albumin/Glob Ratio 0.9 Low 1.0-2.5 [facility] Comment on above: Performed By: #### C P, CDP #### [facility] [address] [place], [place] [id number] Pension Agent: Rasta Mohr MD Alkaline Phos 201 U/L High 40-129 [facility] Comment on above: Performed By: #### C P, CDP #### [facility] [address] [place] [address] Pension Agent: Rasta Mohr MD ALT [Catalytic activity/Vol] 15 U/L Normal 5-41 [facility] Comment on above: Performed By: #### C P, CDP #### [facility] [address] [place], [place] [id number] Pension Agent: Rasta Mohr MD Anion gap [Moles/Vol] 11 mmol/L Normal 9-17 [facility] Comment on above: Performed By: #### C P, CDP #### [facility] [address] [place], [place] [phone] Pension Agent: Rasta Mohr MD AST [Catalytic activity/Vol] 19 U/L Normal <40 [facility] Comment on above: Performed By: #### C P, CDP #### [facility] [address] [place], [place] [id number] Pension Agent: Rasta Mohr MD Bilirubin [Mass/Vol] 0.4 mg/dL Normal 0.3-1.2 [facility] Comment on above: Performed By: #### C P, CDP #### [facility] [address] [place], [place] [phone] Pension Agent: Rasta Mohr MD BUN/CRE Ratio 20 Normal 9-20 [facility] Comment on above: Performed By: #### C P, CDP #### [facility] [address] [place], [place] [phone] Pension Agent: Rasta Mohr MD Calcium [Mass/Vol] 9.4 mg/dL Normal 8.6-10.4 [facility] Comment on above: Performed By: #### C P, CDP #### [facility] [address] [place], [place] [id number] Pension Agent: Rasta Mohr MD Chloride [Moles/Vol] 102 mmol/L Normal 98-107 [facility] Comment on above: Performed By: #### C P, CDP #### [facility] [address] [place], [place] [id number] Pension Agent: Rasta Mohr MD CO2 [Moles/Vol] 25 mmol/L Normal 20-31 [facility] Comment on above: Performed By: #### C P, CDP #### [facility] [address] [place] [address] Pension Agent: Rasta Mohr MD Creatinine [Mass/Vol] 0.84 mg/dL Normal 0.70-1.20 [facility] Comment on above: Performed By: #### C P, CDP #### [facility] [address] [place] [address] Pension Agent: Rasta Mohr MD GFR/1.73 sq M.predicted among non-blacks MDRD (S/P/Bld) [Vol rate/Area] mL/min/{1.73_m2} Normal >60 [facility] Comment on above: Result Comment: [...] Performed By: #### C P, CDP #### [address] [place] [address] Pension Agent: Rasta Mohr MD Glucose [Mass/Vol] 101 mg/dL High 70-99 [facility] Comment on above: Performed By: #### C P, CDP #### [facility] [address] [place] [address] Pension Agent: Rasta Mohr MD Potassium [Moles/Vol] 4.3 mmol/L Normal 3.7-5.3 [facility] Comment on above: Performed By: #### C P, CDP #### [facility] [address] [place] [address] Pension Agent: Rasta Mohr MD Protein [Mass/Vol] 8.1 g/dL Normal 6.4-8.3 [facility] Comment on above: Performed By: #### C P, CDP #### [facility] [address] [place] [address] Pension Agent: Rasta Mohr MD Sodium [Moles/Vol] 138 mmol/L Normal 135-144 [facility] Comment on above: Performed By: #### C P, CDP #### [facility] [address] [place] [address] Pension Agent: Rasta Mohr MD Urea nitrogen [Mass/Vol] 17 mg/dL Normal 8-23 [facility] Comment on above: Performed By: #### C P, CDP #### [facility] [address] [place] [address] Pension Agent: Ratsa Mohr MD Comprehensive Metabolic Pane [facility] 04-02-2023 Albumin [Mass/Vol] 3.9 g/dL 3.5 - 5.2 g/dL [facility] Albumin/Globulin [Mass ratio] 0.9 {ratio} Low 1.0 - 2.5 [facility] ALP [Catalytic activity/Vol] 201 U/L High 40 - 129 U/L [facility] ALT [Catalytic activity/Vol] 15 U/L 5 - 41 U/L [facility] Anion gap [Moles/Vol] 11 mmol/L 9 - 17 mmol/L [facility] AST [Catalytic activity/Vol] 19 U/L NINF - 40 U/L [facility] Bilirubin [Mass/Vol] 0.4 mg/dL 0.3 - 1 .2 mg/dL [facility] Calcium [Mass/Vol] 9.4 mg/dL 8.6 - 10. 4 mg/dL [facility] Chloride [Moles/Vol] 102 mmol/L 98 - 10 7 mmol/L [facility] CO2 [Moles/Vol] 25 mmol/L 20 - 31 mmol/L [facility] Creatinine [Mass/Vol] 0.84 mg/dL 0.70 - 1.20 mg/dL [facility] GFR/1.73 sq M.predicted MDRD (S/P/Bld) [Vol rate/Area] - PINF [facility] Comment on above: These results [...] 101 mg/dL High 70 - 99 mg/dL [facility] Interpretation and review of laboratory results Abnormal [facility] Potassium [Moles/Vol] 4.3 mmol/L 3.7 - 5.3 mmol/L [facility] Protein [Mass/Vol] 8.1 g/dL 6.4 - 8.3 g/dL [facility] Sodium [Moles/Vol] 138 mmol/L 135 - 144 mmol/L [facility] Urea nitrogen [Mass/Vol] 17 mg/dL 8 - 23 mg/dL [facility] Urea nitrogen/Creatinine [Mass ratio] 20 mg/mg 9 - 20 [facility] TSHon 04-02-2023 TSH [Mass/Vol] 0.52 [facility] Thyroid Stim. Horm.on 2022 Thyroid Stim. Horm. 0.52 uIU/mL Normal 0.30-5.00 [facility] Comment on above: Performed By: #### T SH #### [facility] [address] [place] [address] Pension Agent: Rasta Mohr MD CBC Auto DifferentialOrdered By: Maritza Mendoza on 04-05-2021 [facility] Eos # 0.24 [facility] Work Phone: [facility] Immature Granulocyte 0.03 [facility] Work Phone: [facility] Lymph # 1.16 [facility] Work Phone: [facility] [place] # 0.79 [employer] Phone: [phone] Basophils (Bld) [#/Vol] 0.05 10*3/uL [employer] Phone: [phone] Basophils/100 WBC (Bld) 1 % 0 - 2 % [employer] Phone: Differential Type NOT REPORTED [employer] Phone: [phone] Eosinophils/100 WBC (Bld) 4 % 1 - 4 % [employer] Phone: Hematocrit (Bld) [Volume fraction] 47.7 % 40.7 - 50.3 % [employer] Phone: Hemoglobin.gastrointe stinal spec 1 Ql (Stl) 15.6 g/dL 13.0 - 17.0 g/dL [employer] Phone: Immature granulocytes/100 WBC (Bld) 1 % High 0 [employer] Phone: Interpretation and review of laboratory results Abnormal [employer] Phone: Lymphocytes/100 WBC (Bld) 18 % Low 24 - 43 % [employer] Phone: MCH (RBC) [Entitic mass] 31.0 pg 25.2 - 33.5 pg [employer] Phone: MCHC (RBC) [Mass/Vol] 32.7 g/dL 28.4 - 34.8 g/dL [employer] Phone: MCV (RBC) [Entitic vol] 94.6 fL 82.6 - 102.9 fL [employer] Phone: Monocytes/100 WBC (Bld) 12 % 3 - 12 % [employer] Phone: NRBC Automated 0.0 0.0 per 100 WBC [employer] Phone: Platelet distribution width (Bld) [Ratio] 13.2 % 11.8 - 14.4 % [employer] Phone: Platelet Estimate NOT REPORTED [employer] Phone: Platelet mean volume (Bld) [Entitic vol] 10.1 fL 8.1 - 13.5 fL [employer] Phone: Platelets (Bld) [#/Vol] 193 10*3/uL [employer] Phone: RBC (Bld) [#/Vol] 5.04 10*6/uL 4.21 - 5.77 m/uL [employer] Phone: RBC (Bld) [#/Vol] NOT REPORTED [employer] Phone: Segmented neutrophils/100 WBC (Bld) 64 % 36 - 65 % [employer] Phone: Segs Absolute 4.19 [employer] Phone: WBC (Bld) [#/Vol] 6.5 10*3/uL [employer] Phone: WBC (Bld) [#/Vol] NOT REPORTED [employer] Phone: [employer] Phone: Comprehensive Metabolic Pane lOrdered By: Maritza Mendoza on 04-05-2021 Albumin [Mass/Vol] 4.2 g/dL 3.5 - 5.2 g/dL [employer] Phone: Albumin/Globulin [Mass ratio] 1.0 {ratio} [employer] Phone: ALP (Bld) [Catalytic activity/Vol] 187 U/L High 40 - 129 U/L Tutor Assignment Phone: ALT [Catalytic activity/Vol] 23 U/L 5 - 41 U/L Tutor Assignment Phone: Anion gap [Moles/Vol] 10 mmol/L 9 - 17 mmol/L Tutor Assignment Phone: AST [Catalytic activity/Vol] 21 U/L <40 Tutor Assignment Phone: Bilirubin [Mass/Vol] 0.34 mg/dL 0.3 - 1 .2 mg/dL Tutor Assignment Phone: Calcium [Mass/Vol] 9.5 mg/dL 8.6 - 10. 4 mg/dL Tutor Assignment Phone: Chloride [Moles/Vol] 102 mmol/L 98 - 10 7 mmol/L Tutor Assignment Phone: CO2 [Moles/Vol] 26 mmol/L 20 - 31 mmol/L Tutor Assignment Phone: Creatinine [Mass/Vol] 0.82 mg/dL 0.70 - 1.20 mg/dL Tutor Assignment Phone: Free PSA/Total PSA [Mass fraction] 8.3 g/dL 6.4 - 8.3 g/dL Tutor Assignment Phone: GFR >60 >60 mL/min [employer] Phone: GFR Non- >60 >60 mL/min Tutor Assignment Phone: Glucose [Mass/Vol] 97 mg/dL 70 - 99 mg/dL Tutor Assignment Phone: Interpretation and review of laboratory results Abnormal Tutor Assignment Phone: Potassium [Moles/Vol] 4.2 mmol/L 3.7 - 5.3 mmol/L Tutor Assignment Phone: Sodium [Moles/Vol] 138 mmol/L 135 - 144 mmol/L Tutor Assignment Phone: Urea nitrogen (BldV) [Mass/Vol] 16 mg/dL 8 - 23 mg/dL Tutor Assignment Phone: Urea nitrogen/Creatinine (Bld) [Mass ratio] 20 Tutor Assignment Phone: Laboratory - Chemistry and C hemistry - challengeOrdered By: Maritza Mendoza on 04-05-2021 GFR/1.73 sq M.predicted MDRD (S/P/Bld) [Vol rate/Area] Tutor Assignment Phone: Comment on above: Average GFR for 60-6 9 years old: 85 mL/min/1.73sq m Chronic Kidney Disease: <60 mL/min/1.73sq m Kidney failure: <15 mL/min/1.73sq m eGFR calculated using average adult body mass. Additional eGFR calculator available at: http://www.[employer]/Derceto_crcl_2012.htm Stage 1: Some kidney damage normal GFR Stage 2: Mild kidney damage GFR 60-89 Stage 3: Moderate kidney damage GFR 30-59 Stage 4: Severe kidney damage GFR 15-29 Stage 5: Severe kidney damage GFR <15 ESRD - chronic treatment by dialysis or transplant Lactate DehydrogenaseOrdered By: Maritza Mendoza on 04-05-2021 LD 163 U/L 135 - 225 U/L Tutor Assignment Phone: No Panel InformationOrdered By: Maritza Mendoza on 04-05-2021 Tutor Assignment Phone: TSH without ReflexOrdered By : Maritza Mendoza on 04-05-2021 Interpretation and review of laboratory results Abnormal Tutor Assignment Phone: TSH Qn 0.19 m[IU]/L Low Tutor Assignment Phone: Tutor Assignment Phone: CBC Auto Differentialon 04-03 Basophils (Bld) [#/Vol] 0.07 10*3/uL [facility] [place] [place] Basophils/100 WBC (Bld) 1 % 0 - 2 % [place] Differential Type NOT REPORTED [place] Eosinophils (Bld) [#/Vol] 0.24 10*3/uL [place] Eosinophils/100 WBC (Bld) 4 % 1 - 4 % [place] Erythrocyte distribution width (RBC) [Ratio] 13.5 % 11.8 - 14.4 % [place] Hematocrit (Bld) [Volume fraction] 48.7 % 40.7 - 50.3 % [place] Hemoglobin (Bld) [Mass/Vol] 15.9 g/dL 13 - 17 g/dL [place] Immature granulocytes (Bld) [#/Vol] 10*3/uL [place] Immature granulocytes (Bld) [#/Vol] 0 % 0 [place] Interpretation and review of laboratory results Abnormal [place] Lymphocytes (Bld) [#/Vol] 1.28 10*3/uL [place] Lymphocytes/100 WBC (Bld) 19 % Low 24 - 43 % [place] MCH (RBC) [Entitic mass] 30.7 pg 25.2 - 33.5 pg [place] MCHC (RBC) [Mass/Vol] 32.6 g/dL 28.4 - 34.8 g/dL [place] MCV (RBC) [Entitic vol] 94.0 fL 82.6 - 102.9 fL [place] Monocytes (Bld) [#/Vol] 0.98 10*3/uL [place] Monocytes/100 WBC (Bld) 15 % High 3 - 12 % [place] Platelet mean volume (Bld) [Entitic vol] 10.3 fL 8.1 - 13.5 fL [place] Platelets (Bld) [#/Vol] NOT REPORTED [place] Platelets (Bld) [#/Vol] 209 10*3/uL [place] RBC (Bld) [#/Vol] 5.18 10*6/uL 4.21 - 5.77 m/uL [place] RBC morphology finding Nom (Bld) NOT REPORTED [place] Segmented neutrophils/100 WBC (Bld) 61 % 36 - 65 % [place] Segs Absolute 4.13 [place] WBC (Bld) [#/Vol] 0.0 10*3/uL 0.0 per 100 WBC [place] WBC (Bld) [#/Vol] 6.7 10*3/uL [place] WBC Morphology NOT REPORTED [place] Comprehensive Metabolic Pane cheng 04-17-2020 Albumin [Mass/Vol] 4.2 g/dL 3.5 - 5.2 g/dL [place] Albumin/Globulin [Mass ratio] 1.1 {ratio} [place] ALP [Catalytic activity/Vol] 161 U/L High 40 - 129 U/L [place] ALT [Catalytic activity/Vol] 24 U/L 5 - 41 U/L [place] Anion gap [Moles/Vol] 13 mmol/L 9 - 17 mmol/L [place] AST [Catalytic activity/Vol] 19 U/L <40 [place] Bilirubin Ql (U) 0.27 mg/dL Low 0.3 - 1.2 mg/dL [place] Bun/Cre Ratio 12 [place] Calcium [Mass/Vol] 9.4 mg/dL 8.6 - 10. 4 mg/dL [place] Chloride [Moles/Vol] 103 mmol/L 98 - 10 7 mmol/L [place] CO2 [Moles/Vol] 24 mmol/L 20 - 31 mmol/L [place] Creatinine [Mass/Vol] 0.81 mg/dL 0.7 - 1.2 mg/dL [place] GFR >60 >60 mL/min [place] GFR Non- >60 >60 mL/min [place] Glucose [Mass/Vol] 104 mg/dL High 70 - 99 mg/dL [place] Interpretation and review of laboratory results Abnormal [place] Potassium [Moles/Vol] 4.2 mmol/L 3.7 - 5.3 mmol/L [place] Protein [Mass/Vol] 8.0 g/dL 6.4 - 8.3 g/dL [place] Sodium [Moles/Vol] 140 mmol/L 135 - 144 mmol/L [place] Urea nitrogen [Mass/Vol] 10 mg/dL 8 - 23 mg/dL [place] Lactate Dehydrogenaseon 04-03 LD 181 U/L 135 - 225 U/L [place] Metabolic Panelon 04-17-2020 GFR/1.73 sq M predicted among non-blacks MDRD (S/P/Bld) [Vol rate/Area] [place] Comment on above: Stage 1: Some [...] body mass. Additional eGFR calculator available at: http://www.[email or web address]_crcl_2012.htm Vital Signs Date Time Vital Sign Value Performing Clinician Facility 06-08-2024 13:49-0400 Blood Pressure Location Chiquita RIVERA [facility] 06-08-2024 13:49-0400 Diastolic blood pressure 80 mm[Hg] Chiquita RIVERA [facility] 06-08-2024 13:49-0400 Heart rate 72 /min Chiquita RIVERA [facility] 06-08-2024 13:49-0400 Respiratory rate 16 /min Chiquita RIVERA [facility] 06-08-2024 13:49-0400 Systolic blood pressure 122 mm[Hg] Chiquita SILVERIOMana [facility] 05-13-2024 11:11-0400 Body mass index (BMI) [Ratio] 25.28 kg/m2 Niesha Galdamez MD Work Phone: [facility] 05-13-2024 11:11-0400 Body temperature 97.7 [degF] Niesha Galdamez MD Work Phone: [facility] 05-13-2024 11:11-0400 Body weight 81.9 kg Niesha Galdamez MD Work Phone: [facility] Comment on above: shoes on 05-13-2024 11:11-0400 Diastolic blood pressure 72 mm[Hg] Niesha Galdamez MD Work Phone: [facility] 05-13-2024 11:11-0400 Heart rate 72 /min Niesha Galdamez MD Work Phone: [facility] 05-13-2024 11:11-0400 Respiratory rate 18 /min Niesha Galdamez MD Work Phone: [facility] 05-13-2024 11:11-0400 SaO2% (BldA) [Mass fraction] 99 % Niesha Galdamez MD Work Phone: [facility] 05-13-2024 11:11-0400 Systolic blood pressure 135 mm[Hg] Niesha Galdamez MD Work Phone: [facility] 05-13-2024 09:04-0400 Body mass index (BMI) [Ratio] 24.92 kg/m2 Dylan Porter MD Work Phone: [facility] 05-13-2024 09:04-0400 Body temperature 97.7 [degF] Dylan Porter MD Work Phone: [facility] 05-13-2024 09:04-0400 Body weight 80.74 kg Dylan Porter MD Work Phone: [facility] 05-13-2024 09:04-0400 Diastolic blood pressure 81 mm[Hg] Dylan Porter MD Work Phone: [facility] 05-13-2024 09:04-0400 Heart rate 74 /min Dylan Porter MD Work Phone: [facility] 05-13-2024 09:04-0400 SaO2% (BldA) [Mass fraction] 99 % Dylan Porter MD Work Phone: [facility] 05-13-2024 09:04-0400 Systolic blood pressure 134 mm[Hg] Dylan Porter MD Work Phone: [facility] 04-23-2024 08:54-0400 Body mass index (BMI) [Ratio] 24.35 kg/m2 Nabila Chery APRN.[employer] Work Phone: [facility] 04-23-2024 08:54-0400 Body temperature 98.1 [degF] Nabila Chery APRN.[employer] Work Phone: [facility] 04-23-2024 08:54-0400 Body weight 78.9 kg Nabila Chery APRN.[employer] Work Phone: [facility] 04-23-2024 08:54-0400 Diastolic blood pressure 64 mm[Hg] Nabila Chery APRN.[employer] Work Phone: [facility] 04-23-2024 08:54-0400 Heart rate 72 /min Nabila Chery APRN.[employer] Work Phone: [facility] 04-23-2024 08:54-0400 Respiratory rate 19 /min Nabila Chery APRN.[employer] Work Phone: [facility] 04-23-2024 08:54-0400 SaO2% (BldA) [Mass fraction] 99 % Nabila Chery APRN.[employer] Work Phone: [facility] 04-23-2024 08:54-0400 Systolic blood pressure 108 mm[Hg] Nabila Chery APRN.[employer] Work Phone: [facility] 04-23-2024 07:40-0400 Body mass index (BMI) [Ratio] 24.41 kg/m2 Chair Ntu Work Phone: [facility] 04-23-2024 07:40-0400 Body temperature 97.7 [degF] Chair Ntu Work Phone: [facility] 04-23-2024 07:40-0400 Body weight 79.1 kg Chair Ntu Work Phone: [facility] 04-23-2024 07:40-0400 Diastolic blood pressure 64 mm[Hg] Chair Ntu Work Phone: [facility] 04-23-2024 07:40-0400 Heart rate 72 /min Chair Ntu Work Phone: [facility] 04-23-2024 07:40-0400 Respiratory rate 18 /min Chair Ntu Work Phone: [facility] 04-23-2024 07:40-0400 SaO2% (BldA) [Mass fraction] 100 % Chair Ntu Work Phone: [facility] 04-23-2024 07:40-0400 Systolic blood pressure 113 mm[Hg] Chair Ntu Work Phone: [facility] 04-03-2024 07:27-0400 Body temperature 98.1 [degF] Chair 2 Work Phone: [facility] 04-03-2024 07:27-0400 Diastolic blood pressure 62 mm[Hg] Chair 2 Work Phone: [facility] 04-03-2024 07:27-0400 Heart rate 80 /min Chair 2 Work Phone: [facility] 04-03-2024 07:27-0400 Respiratory rate 18 /min Chair 2 Work Phone: [facility] 04-03-2024 07:27-0400 Systolic blood pressure 109 mm[Hg] Chair 2 Work Phone: [facility] 04-02-2024 10:23-0400 Body temperature 98.2 [degF] Chair 2 Work Phone: [facility] 04-02-2024 10:23-0400 Diastolic blood pressure 69 mm[Hg] Chair 2 Work Phone: [facility] 04-02-2024 10:23-0400 Heart rate 73 /min Chair 2 Work Phone: [facility] 04-02-2024 10:23-0400 Respiratory rate 18 /min Chair 2 Work Phone: [facility] 04-02-2024 10:23-0400 Systolic blood pressure 113 mm[Hg] Chair 2 Work Phone: [facility] 04-01-2024 10:01-0400 Body height 180.2 cm Chair 2 Work Phone: [facility] Comment on above: SHOES ON 04-01-2024 10:01-0400 Body mass index (BMI) [Ratio] 25.87 kg/m2 Chair 2 Work Phone: [facility] 04-01-2024 10:01-0400 Body weight 84 kg Chair 2 Work Phone: [facility] 04-01-2024 09:19-0400 Body height 176.6 cm Niesha Galdamez MD Work Phone: [facility] Comment on above: shoes off 04-01-2024 09:19-0400 Body mass index (BMI) [Ratio] 26.74 kg/m2 Niesha Galdamez MD Work Phone: [facility] 04-01-2024 09:19-0400 Body temperature 97.59 [degF] Niesha Galdamez MD Work Phone: [facility] 04-01-2024 09:19-0400 Body weight 83.4 kg Niesha Galdamez MD Work Phone: [facility] Comment on above: shoes off 04-01-2024 09:19-0400 Diastolic blood pressure 67 mm[Hg] Niesha Galdamez MD Work Phone: [facility] 04-01-2024 09:19-0400 Heart rate 73 /min Niesha Galdamez MD Work Phone: [facility] 04-01-2024 09:19-0400 Respiratory rate 18 /min Niesha Galdamez MD Work Phone: [facility] 04-01-2024 09:19-0400 SaO2% (BldA) [Mass fraction] 97 % Niesha Galdamez MD Work Phone: [facility] 04-01-2024 09:19-0400 Systolic blood pressure 126 mm[Hg] Niesha Galdamez MD Work Phone: [facility] 03-22-2024 15:58-0400 Body mass index (BMI) [Ratio] 25.9 kg/m2 JUANPABLO Varela MD Work Phone: [facility] 03-22-2024 15:58-0400 Body temperature 97.3 [degF] JUANPABLO Varela MD Work Phone: [facility] 03-22-2024 15:58-0400 Body weight 84 kg JUANPABLO Varela MD Work Phone: [facility] 03-22-2024 15:58-0400 Diastolic blood pressure 82 mm[Hg] JUANPABLO Varela MD Work Phone: [facility] 03-22-2024 15:58-0400 Heart rate 85 /min JUANPABLO Varela MD Work Phone: [facility] 03-22-2024 15:58-0400 Respiratory rate 18 /min JUANPABLO Varela MD Work Phone: [facility] 03-22-2024 15:58-0400 SaO2% (BldA) [Mass fraction] 98 % JUANPABLO Varela MD Work Phone: [facility] 03-22-2024 15:58-0400 Systolic blood pressure 145 mm[Hg] JUANPABLO Varela MD Work Phone: [facility] 03-16-2024 14:31-0400 Body mass index (BMI) [Ratio] 25.87 kg/m2 JUANPABLO Varela MD Work Phone: [facility] 03-16-2024 14:31-0400 Body temperature 98.29 [degF] JUANPABLO Varela MD Work Phone: [facility] 03-16-2024 14:31-0400 Body weight 83.9 kg JUANPABLO Varela MD Work Phone: [facility] 03-16-2024 14:31-0400 Diastolic blood pressure 83 mm[Hg] JUANPABLO Varela MD Work Phone: [facility] 03-16-2024 14:31-0400 Heart rate 91 /min JUANPABLO Varela MD Work Phone: [facility] 03-16-2024 14:31-0400 Respiratory rate 16 /min JUANPABLO Varela MD Work Phone: [facility] 03-16-2024 14:31-0400 SaO2% (BldA) [Mass fraction] 97 % JUANPABLO Varela MD Work Phone: [facility] 03-16-2024 14:31-0400 Systolic blood pressure 119 mm[Hg] JUANPABLO Varela MD Work Phone: [facility] 03-15-2024 07:41-0400 Body mass index (BMI) [Ratio] 26.49 kg/m2 JUANPABLO Varela MD Work Phone: [facility] 03-15-2024 07:41-0400 Body temperature 97.9 [degF] JUANPABLO Varela MD Work Phone: [facility] 03-15-2024 07:41-0400 Body weight 85.91 kg JUANPABLO Varela MD Work Phone: [facility] 03-15-2024 07:41-0400 Diastolic blood pressure 81 mm[Hg] JUANPABLO Varela MD Work Phone: [facility] 03-15-2024 07:41-0400 Heart rate 79 /min JUANPABLO Varela MD Work Phone: [facility] 03-15-2024 07:41-0400 Respiratory rate 18 /min JUANPABLO Varela MD Work Phone: [facility] 03-15-2024 07:41-0400 SaO2% (BldA) [Mass fraction] 95 % NA Zee LOFTON Work Phone: [facility] 03-15-2024 07:41-0400 Systolic blood pressure 116 mm[Hg] JUANPABLO Varela MD Work Phone: [facility] 03-09-2024 13:57-0400 Body temperature 98.2 [degF] Apheresis Main Work Phone: [facility] 03-09-2024 13:57-0400 Diastolic blood pressure 80 mm[Hg] Apheresis Main Work Phone: [facility] 03-09-2024 13:57-0400 Heart rate 81 /min Apheresis Main Work Phone: [facility] 03-09-2024 13:57-0400 Respiratory rate 18 /min Apheresis Main Work Phone: [facility] 03-09-2024 13:57-0400 Systolic blood pressure 134 mm[Hg] Apheresis Main Work Phone: [facility] 03-09-2024 13:11-0400 SaO2% (BldA) [Mass fraction] 96 % [facility] Main Work Phone: [facility] Comment on above: 03-09-2024 09:15-0400 Body height 180.1 cm [facility] Main Work Phone: [facility] 03-09-2024 09:15-0400 Body mass index (BMI) [Ratio] 25.31 kg/m2 Apheres[facility] Main Work Phone: [facility] 03-09-2024 09:15-0400 Body weight 82.1 kg [facility] Main Work Phone: [facility] 03-08-2024 15:34-0400 Body height 177.2 cm Niesha Galdamez MD Work Phone: [facility] 03-08-2024 15:34-0400 Body mass index (BMI) [Ratio] 26.21 kg/m2 Niesha Galdamez MD Work Phone: [facility] 03-08-2024 15:34-0400 Body temperature 97.5 [degF] Niesha Galdamez MD Work Phone: [facility] 03-08-2024 15:34-0400 Body weight 82.3 kg Niesha Galdamez MD Work Phone: [facility] 03-08-2024 15:34-0400 Diastolic blood pressure 76 mm[Hg] Niesha Galdamez MD Work Phone: [facility] 03-08-2024 15:34-0400 Heart rate 91 /min Niesha Galdamez MD Work Phone: [facility] 03-08-2024 15:34-0400 Respiratory rate 20 /min Niesha Galdamez MD Work Phone: [facility] 03-08-2024 15:34-0400 SaO2% (BldA) [Mass fraction] 97 % Niesha Galdamez MD Work Phone: [facility] 03-08-2024 15:34-0400 Systolic blood pressure 130 mm[Hg] Niesha Galdamez MD Work Phone: [facility] 02-12-2024 10:55-0400 Body temperature 97.9 [degF] Niesha Galdamez MD Work Phone: [facility] 02-12-2024 10:55-0400 Body weight 84 kg Niesha Galdamez MD Work Phone: [facility] 02-12-2024 10:55-0400 Diastolic blood pressure 72 mm[Hg] Niesha Galdamez MD Work Phone: [facility] 02-12-2024 10:55-0400 Heart rate 75 /min Niesha Galdamez MD Work Phone: [facility] 02-12-2024 10:55-0400 Respiratory rate 18 /min Niesha Galdamez MD Work Phone: [facility] 02-12-2024 10:55-0400 SaO2% (BldA) [Mass fraction] 99 % Niesha Galdamez MD Work Phone: [facility] 02-12-2024 10:55-0400 Systolic blood pressure 133 mm[Hg] Niesha Galdamez MD Work Phone: [facility] 02-02-2024 15:44-0400 Body temperature 97.2 [degF] Michael Boykin MD Work Phone: [facility] 02-02-2024 15:44-0400 Body weight 83.2 kg Michael Boykin MD Work Phone: [facility] 02-02-2024 15:44-0400 Diastolic blood pressure 76 mm[Hg] Michael Boykin MD Work Phone: [facility] 02-02-2024 15:44-0400 Heart rate 81 /min Michael Boykin MD Work Phone: [facility] 02-02-2024 15:44-0400 Respiratory rate 18 /min Michael Boykin MD Work Phone: [facility] 02-02-2024 15:44-0400 SaO2% (BldA) [Mass fraction] 98 % Michael Boykin MD Work Phone: [facility] 02-02-2024 15:44-0400 Systolic blood pressure 135 mm[Hg] Michael Boykin MD Work Phone: [facility] 01-28-2024 09:55-0400 Body height 179.1 cm Dorcas Bolanos MD Work Phone: [facility] 01-28-2024 09:55-0400 Body mass index (BMI) [Ratio] 26.38 kg/m2 Dorcas Bolanos MD Work Phone: [facility] 01-28-2024 09:55-0400 Body temperature 97.9 [degF] Dorcas Bolanos MD Work Phone: [facility] 01-28-2024 09:55-0400 Body weight 84.6 kg Dorcas Bolanos MD Work Phone: [facility] 01-28-2024 09:55-0400 Diastolic blood pressure 71 mm[Hg] Dorcas Bolanos MD Work Phone: [facility] 01-28-2024 09:55-0400 Heart rate 91 /min Dorcas Bolanos MD Work Phone: [facility] 01-28-2024 09:55-0400 Respiratory rate 16 /min Dorcas Bolanos MD Work Phone: [facility] 01-28-2024 09:55-0400 SaO2% (BldA) [Mass fraction] 98 % Dorcas Bolanos MD Work Phone: [facility] 01-28-2024 09:55-0400 Systolic blood pressure 129 mm[Hg] Dorcas Bolanos MD Work Phone: [facility] 01-12-2024 14:05-0400 Body temperature 97 [degF] Michael Boykin MD Work Phone: [facility] 01-12-2024 14:05-0400 Body weight 83.9 kg Michael Boykin MD Work Phone: [facility] 01-12-2024 14:05-0400 Diastolic blood pressure 77 mm[Hg] Michael Boykin MD Work Phone: [facility] 01-12-2024 14:05-0400 Heart rate 100 /min Michael Boykin MD Work Phone: [facility] 01-12-2024 14:05-0400 Respiratory rate 18 /min Michael Boykin MD Work Phone: [facility] 01-12-2024 14:05-0400 SaO2% (BldA) [Mass fraction] 97 % Michael Boykin MD Work Phone: [facility] 01-12-2024 14:05-0400 Systolic blood pressure 140 mm[Hg] Michael Boykin MD Work Phone: [facility] 01-05-2024 12:35-0500 Body height 177.8 cm Niesha Galdamez MD Work Phone: [facility] 01-05-2024 12:35-0500 Body temperature 97.11 [degF] Niesha Galdamez MD Work Phone: [facility] 01-05-2024 12:35-0500 Body weight 83.7 kg Niesha Galdamez MD Work Phone: [facility] 01-05-2024 12:35-0500 Diastolic blood pressure 80 mm[Hg] Niesha Galdamez MD Work Phone: [facility] 01-05-2024 12:35-0500 Heart rate 93 /min Niesha Galdamez MD Work Phone: [facility] 01-05-2024 12:35-0500 Respiratory rate 15 /min Niesha Galdamez MD Work Phone: [facility] 01-05-2024 12:35-0500 SaO2% (BldA) [Mass fraction] 96 % Niesha Galdamez MD Work Phone: [facility] 01-05-2024 12:35-0500 Systolic blood pressure 139 mm[Hg] Niesha Galdamez MD Work Phone: [facility] 12-30-2023 11:03-0500 Body temperature 98.49 [degF] JUANPABLO Varela MD Work Phone: [facility] 12-30-2023 11:03-0500 Body weight 84.8 kg JUANPABLO Varela MD Work Phone: [facility] 12-30-2023 11:03-0500 Diastolic blood pressure 81 mm[Hg] JUANPABLO Varela MD Work Phone: [facility] 12-30-2023 11:03-0500 Heart rate 89 /min JUANPABLO Varela MD Work Phone: [facility] 12-30-2023 11:03-0500 Respiratory rate 16 /min JUANPABLO Varela MD Work Phone: [facility] 12-30-2023 11:03-0500 SaO2% (BldA) [Mass fraction] 97 % JUANPABLO Varela MD Work Phone: [facility] 12-30-2023 11:03-0500 Systolic blood pressure 116 mm[Hg] JUANPABLO Varela MD Work Phone: [facility] 12-25-2023 14:58-0500 Body height 179.5 cm Michael Boykin MD Work Phone: [facility] 12-25-2023 14:58-0500 Body temperature 97.7 [degF] Michael Boykin MD Work Phone: [facility] 12-25-2023 14:58-0500 Body weight 84.2 kg Michael Boykin MD Work Phone: [facility] 12-25-2023 14:58-0500 Diastolic blood pressure 82 mm[Hg] Michael Boykin MD Work Phone: [facility] 12-25-2023 14:58-0500 Heart rate 88 /min Michael Boykin MD Work Phone: [facility] 12-25-2023 14:58-0500 Respiratory rate 16 /min Michael Boykin MD Work Phone: [facility] 12-25-2023 14:58-0500 SaO2% (BldA) [Mass fraction] 98 % Michael Boykin MD Work Phone: [facility] 12-25-2023 14:58-0500 Systolic blood pressure 141 mm[Hg] Michael Boykin MD Work Phone: [facility] 09-03-2023 09:15-0400 Body temperature 97.9 [degF] Chair Jordan Work Phone: [facility] 09-03-2023 09:15-0400 Diastolic blood pressure 71 mm[Hg] Chair Jordan Work Phone: [facility] 09-03-2023 09:15-0400 Heart rate 77 /min Chair Anson Work Phone: [facility] 09-03-2023 09:15-0400 Respiratory rate 16 /min Chair Anson Work Phone: [facility] 09-03-2023 09:15-0400 SaO2% (BldA) [Mass fraction] 97 % Chair Anson Work Phone: [facility] 09-03-2023 09:15-0400 Systolic blood pressure 106 mm[Hg] Chair Anson Work Phone: [facility] 09-02-2023 09:01-0400 Body height 179.5 cm Michael Boykin MD Work Phone: [facility] 09-02-2023 09:01-0400 Body temperature 97.39 [degF] Michael Boykin MD Work Phone: [facility] 09-02-2023 09:01-0400 Body weight 80.38 kg Michael Boykin MD Work Phone: [facility] 09-02-2023 09:01-0400 Diastolic blood pressure 75 mm[Hg] Michael Boykin MD Work Phone: [facility] 09-02-2023 09:01-0400 Heart rate 80 /min Michael Boykin MD Work Phone: [facility] 09-02-2023 09:01-0400 Respiratory rate 16 /min Michael Boykin MD Work Phone: [facility] 09-02-2023 09:01-0400 SaO2% (BldA) [Mass fraction] 97 % Michael Boykin MD Work Phone: [facility] 09-02-2023 09:01-0400 Systolic blood pressure 130 mm[Hg] Michael Boykin MD Work Phone: [facility] 07-09-2023 09:11-0400 Body temperature 98.01 [degF] Chair Jordan Work Phone: [facility] 07-09-2023 09:11-0400 Diastolic blood pressure 68 mm[Hg] Chair Jordan Work Phone: [facility] 07-09-2023 09:11-0400 Heart rate 74 /min Chair Anson Work Phone: [facility] 07-09-2023 09:11-0400 Respiratory rate 16 /min Chair Jordan Work Phone: [facility] 07-09-2023 09:11-0400 SaO2% (BldA) [Mass fraction] 98 % Chair Anson Work Phone: [facility] 07-09-2023 09:11-0400 Systolic blood pressure 112 mm[Hg] Chair Jordan Work Phone: [facility] 07-08-2023 11:42-0400 Body temperature 98.01 [degF] Chair Jordan Work Phone: [facility] 07-08-2023 11:42-0400 Diastolic blood pressure 64 mm[Hg] Chair Jordan Work Phone: [facility] 07-08-2023 11:42-0400 Heart rate 54 /min Chair Anson Work Phone: [facility] 07-08-2023 11:42-0400 Respiratory rate 16 /min Chair Anson Work Phone: [facility] 07-08-2023 11:42-0400 SaO2% (BldA) [Mass fraction] 97 % Chair Anson Work Phone: [facility] 07-08-2023 11:42-0400 Systolic blood pressure 98 mm[Hg] Chair Anson Work Phone: [facility] 07-08-2023 08:41-0400 Body height 179.5 cm Michael Boykin MD Work Phone: [facility] 07-08-2023 08:41-0400 Body temperature 97.59 [degF] Michael Boykin MD Work Phone: [facility] 07-08-2023 08:41-0400 Body weight 76.57 kg Michael Boykin MD Work Phone: [facility] 07-08-2023 08:41-0400 Diastolic blood pressure 70 mm[Hg] Michael Boykin MD Work Phone: [facility] 07-08-2023 08:41-0400 Heart rate 85 /min Michael Boykin MD Work Phone: [facility] 07-08-2023 08:41-0400 Respiratory rate 18 /min Michael Boykin MD Work Phone: [facility] 07-08-2023 08:41-0400 SaO2% (BldA) [Mass fraction] 97 % Michael Boykin MD Work Phone: [facility] 07-08-2023 08:41-0400 Systolic blood pressure 116 mm[Hg] Michael Boykin MD Work Phone: [facility] 06-11-2023 08:57-0400 Body temperature 98.29 [degF] Chair Jordan Work Phone: [facility] 06-11-2023 08:57-0400 Diastolic blood pressure 72 mm[Hg] Chair Jordan Work Phone: [facility] 06-11-2023 08:57-0400 Heart rate 70 /min Chair Anson Work Phone: [facility] 06-11-2023 08:57-0400 Respiratory rate 18 /min Chair Anson Work Phone: [facility] 06-11-2023 08:57-0400 SaO2% (BldA) [Mass fraction] 98 % Chair Anson Work Phone: [facility] 06-11-2023 08:57-0400 Systolic blood pressure 117 mm[Hg] Chair Anson Work Phone: [facility] 06-10-2023 14:09-0400 Body temperature 98.2 [degF] Chair Anson Work Phone: [facility] 06-10-2023 14:09-0400 Diastolic blood pressure 63 mm[Hg] Chair Anson Work Phone: [facility] 06-10-2023 14:09-0400 Heart rate 70 /min Chair Jordan Work Phone: [facility] 06-10-2023 14:09-0400 Respiratory rate 16 /min Chair Anson Work Phone: [facility] 06-10-2023 14:09-0400 SaO2% (BldA) [Mass fraction] 96 % Chair Anson Work Phone: [facility] 06-10-2023 14:09-0400 Systolic blood pressure 102 mm[Hg] Chair Jordan Work Phone: [facility] 06-10-2023 09:00-0400 Body height 179.5 cm Chair Anson Work Phone: [facility] 06-10-2023 09:00-0400 Body weight 79.83 kg Chair Anson Work Phone: [facility] 06-05-2023 15:27-0400 Body height 177.8 cm Michael Boykin MD Work Phone: [facility] 06-05-2023 15:27-0400 Body temperature 97.39 [degF] Michael Boykin MD Work Phone: [facility] 06-05-2023 15:27-0400 Body weight 80.56 kg Michael Boykin MD Work Phone: [facility] 06-05-2023 15:27-0400 Diastolic blood pressure 72 mm[Hg] Michael Boykin MD Work Phone: [facility] 06-05-2023 15:27-0400 Heart rate 83 /min Michael Boykin MD Work Phone: [facility] 06-05-2023 15:27-0400 Respiratory rate 16 /min Michael Boykin MD Work Phone: [facility] 06-05-2023 15:27-0400 SaO2% (BldA) [Mass fraction] 96 % Michael Boykin MD Work Phone: [facility] 06-05-2023 15:27-0400 Systolic blood pressure 129 mm[Hg] Michael Boykin MD Work Phone: [facility] 05-27-2023 14:51-0400 Body height 177.8 cm Niesha Galdamez MD Work Phone: [facility] 05-27-2023 14:51-0400 Body temperature 98.01 [degF] Niesha Galdamez MD Work Phone: [facility] 05-27-2023 14:51-0400 Body weight 80.2 kg Niesha Galdamez MD Work Phone: [facility] 05-27-2023 14:51-0400 Diastolic blood pressure 85 mm[Hg] Niesha Galdamez MD Work Phone: [facility] 05-27-2023 14:51-0400 Heart rate 90 /min Niesha Galdamez MD Work Phone: [facility] 05-27-2023 14:51-0400 Respiratory rate 18 /min Niesha Galdamez MD Work Phone: [facility] 05-27-2023 14:51-0400 SaO2% (BldA) [Mass fraction] 97 % Niesha Galdamez MD Work Phone: [facility] 05-27-2023 14:51-0400 Systolic blood pressure 144 mm[Hg] Niesha Galdamez MD Work Phone: [facility] 05-22-2023 14:58-0400 Body height 177.8 cm Michael Boykin MD Work Phone: [facility] 05-22-2023 14:58-0400 Body temperature 98.29 [degF] Michael Boykin MD Work Phone: [facility] 05-22-2023 14:58-0400 Body weight 78.74 kg Michael Boykin MD Work Phone: [facility] 05-22-2023 14:58-0400 Diastolic blood pressure 73 mm[Hg] Michael Boykin MD Work Phone: [facility] 05-22-2023 14:58-0400 Heart rate 84 /min Michael Boykin MD Work Phone: [facility] 05-22-2023 14:58-0400 Respiratory rate 16 /min Michael Boykin MD Work Phone: [facility] 05-22-2023 14:58-0400 SaO2% (BldA) [Mass fraction] 97 % Michael Boykin MD Work Phone: [facility] 05-22-2023 14:58-0400 Systolic blood pressure 120 mm[Hg] Michael Boykin MD Work Phone: [facility] 05-13-2023 10:57-0400 Body height 177.8 cm Michael Boykin MD Work Phone: [facility] 05-13-2023 10:57-0400 Body temperature 98.2 [degF] Michael Boykin MD Work Phone: [facility] 05-13-2023 10:57-0400 Body weight 79.47 kg Michael Boykin MD Work Phone: [facility] 05-13-2023 10:57-0400 Diastolic blood pressure 70 mm[Hg] Michael Boykin MD Work Phone: [facility] 05-13-2023 10:57-0400 Heart rate 75 /min Michael Boykin MD Work Phone: [facility] 05-13-2023 10:57-0400 Respiratory rate 16 /min Michael Boykin MD Work Phone: [facility] 05-13-2023 10:57-0400 SaO2% (BldA) [Mass fraction] 97 % Michael Boykin MD Work Phone: [facility] 05-13-2023 10:57-0400 Systolic blood pressure 134 mm[Hg] Michael Boykin MD Work Phone: [facility] 04-29-2023 13:13-0400 Blood Pressure Location Chiquita RIVERA General [facility] 04-29-2023 13:13-0400 Diastolic blood pressure 76 mm[Hg] Chiquita SILVERIOL [facility] 04-29-2023 13:13-0400 Heart rate 72 /min Chiquita NILL General Surgery [place] 04-29-2023 13:13-0400 Respiratory rate 16 /min Chiquita SILVERIOL [facility] 04-29-2023 13:13-0400 Systolic blood pressure 122 mm[Hg] Chiquita SILVERIOL [facility] Encounters Encounter Date Encounter Type Care Provider Facility Start: 06-08-2024 End: 06-08-2024 ambulatory Chiquita Eliezer RIVERA Facility:[facility] Start: 06-08-2024 End: 06-08-2024 Patient encounter procedure Chiquita RIVERA [facility] Start: 06-02-2024 Telephone encounter Mitra BARBA Work Phone: Psychiatry Comment on above: Referral / [facility] Start: 05-17-2024 Telephone encounter Ivania frias RN Work Phone: Hematology/Oncology Comment on above: Customer Equipment Engineer - O ther (Appointment) Start: 05-13-2024 End: 05-13-2024 ambulatory Lab Port/[address] Work Phone: Hematology/Oncology Comment on above: Diffuse large B-cell lymphoma, unspecified body region (HCC); History of engineered cell therapy infusion; Diffuse large b-cell lymphoma, lymph nodes of multiple sites (HCC) History of engineere d cell therapy infusion (Primary Dx); 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); Immunodeficiency (HCC); Other pancytopenia (HCC) Start: 05-13-2024 End: 05-13-2024 Patient encounter procedure Niesha Galdamez MD Work Phone: Hematology/Oncology Comment on above: 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, initial encounter (Primary Dx) Start: 05-07-2024 End: 05-07-2024 ambulatory NIESHA GALDAMEZ Facility:[facility] Start: 05-03-2024 Telephone encounter Danielle patel RN Hematology/Oncology Comment on above: Patient Update (Week ly Labs) Start: 05-03-2024 End: 05-03-2024 ambulatory [facility] Facility:[facility] Start: 04-30-2024 Telephone encounter Danielle patel RN Hematology/Oncology Comment on above: Patient Update Start: 04-23-2024 End: 04-23-2024 Patient encounter procedure Nabila Chery APRN.[employer] Work Phone: Hematology/Oncology Start: 04-23-2024 End: 04-23-2024 ambulatory Chair 9 [address] Work Phone: Hematology/Oncology Comment on above: 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) (Primary Dx) History of engineere d cell therapy infusion (Primary Dx); 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); Pancytopenia (HCC); At risk for infection due to immunosuppression; Immunodeficiency (HCC); At risk for fluid and electrolyte imbalance Start: 04-14-2024 Emergency department patient visit [facility] Facility:[facility] Start: 04-14-2024 Telephone encounter Cecil castañeda MD Work Phone: Pulmonary Medicine Comment on above: Returning Patient's Call Start: 04-07-2024 End: 04-07-2024 Evaluation and management of inpatient DANIELLE WINTER Facility:[facility] Start: 04-06-2024 Orders Only Niesha Galdamez MD Work Phone: Hematology/Oncology Comment on above: Diffuse large B-cell lymphoma, unspecified body region (HCC) (Primary Dx); History of engineered cell therapy infusion; Diffuse large b-cell lymphoma, lymph nodes of multiple sites (HCC) Start: 04-03-2024 End: 04-04-2024 ambulatory [address] Work Phone: Hematology/Oncology Comment on above: Encounter for antine oplastic chemotherapy (Primary Dx); 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) Start: 04-02-2024 End: 04-03-2024 ambulatory Chair [address] Work Phone: Hematology/Oncology Comment on above: 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) (Primary Dx) Start: 04-01-2024 End: 04-02-2024 ambulatory Niesha Galdamez MD Work Phone: Hematology/Oncology Comment on above: 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) (Primary Dx); History of follicular lymphoma; CINV (chemotherapy-induced nausea and vomiting); At high risk of tumor lysis syndrome 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) (Primary Dx) Start: 04-01-2024 End: 04-01-2024 Patient encounter procedure Niesha Galdamez MD Work Phone: Hematology/Oncology Start: 04-01-2024 End: 04-01-2024 ambulatory Lab Port/[place] [address] Work Phone: Hematology/Oncology Comment on above: 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) (Primary Dx) Start: 03-31-2024 Orders Only Niesha Galdamez MD Work Phone: Hematology/Oncology Start: 03-26-2024 ambulatory Priyanka Echols [facility] Nate tology/Oncology Start: 03-25-2024 End: 03-25-2024 ambulatory NIESHA GALDAMEZ Facility:[facility] Start: 03-22-2024 End: 03-22-2024 ambulatory Viviana VARELA Facility:[facility] Start: 03-22-2024 End: 03-22-2024 Patient encounter procedure Viviana Varela MD Work Phone: Radiation Oncology Comment on above: Follicular lymphoma grade IIIa, unspecified body region (HCC) (Primary Dx) Start: 03-22-2024 Radiation Oncology Note G Wilver Varela MD Work Phone: Radiation Oncology Comment on above: Completion Note Start: 03-19-2024 End: 03-19-2024 Social Work [place] Gregorio GAMEMASTER Hematology/Oncology Start: 03-18-2024 End: 03-18-2024 ambulatory MICHAEL BOYKIN Facility:[facility] Start: 03-17-2024 End: 03-17-2024 ambulatory MICHAEL BOYKIN Facility:[facility] Start: 03-16-2024 End: 03-16-2024 ambulatory Viviana VARELA Facility:[facility] Start: 03-16-2024 End: 03-16-2024 Patient encounter procedure Viviana Varela MD Work Phone: Radiation Oncology Comment on above: Follicular lymphoma grade IIIa, unspecified body region (HCC) (Primary Dx) Start: 03-15-2024 End: 03-15-2024 ambulatory Sandra Mayen RN Radiation Oncology Comment on above: Patient Education Start: 03-15-2024 End: 03-15-2024 Patient encounter procedure Viviana Varela MD Work Phone: Radiation Oncology Comment on above: Follicular lymphoma grade IIIa, unspecified body region (HCC) (Primary Dx) Start: 03-15-2024 Radiation Oncology Note Viviana Varela MD Work Phone: Radiation Oncology Comment on above: Simulation Note Treatment Planning Start: 03-13-2024 Telephone encounter Tabitha Montana MD Work Phone: Hematology/Oncology Start: 03-10-2024 Telephone encounter Noah slater RN Work Phone: Hematology/Oncology Start: 03-09-2024 End: 03-09-2024 ambulatory Apheresis [address] Work Phone: Hematology/Oncology Comment on above: 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) (Primary Dx) Start: 03-09-2024 End: 03-09-2024 ambulatory EMELIA MICHAUD Facility:[facility] Start: 03-08-2024 End: 03-09-2024 Patient encounter [...] Investigati on Start: 02-25-2024 Telephone encounter Krystyna ALCARAZW Work Phone: Hematology/Oncology Comment on above: Social Work Services Start: 02-24-2024 End: 02-24-2024 ambulatory Lab Port/[place] [address] [...] MD Work Phone: Hematology/Oncology Comment on above: Customer Equipment Engineer - O ther (Next Steps) Diffuse large [...] encounter procedure Niesha Galdamez MD Work Phone: [facility] Start: 02-02-2024 End: 02-02-2024 Patient encounter procedure Michael Boykin MD Work Phone: [facility] Start: 02-02-2024 End: 02-02-2024 ambulatory Brit Arzola MA [facility] Comment on above: Population Health Na vigation Outreach (ACO NO PCP) 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); History of follicular lymphoma Start: 01-30-2024 End: 01-30-2024 ambulatory NIESHA GALDAMEZ Facility:[facility] Start: 01-28-2024 ambulatory SELF SELF Facility:[facility] Start: 01-28-2024 End: 01-29-2024 Office outpatient new 60 minutes Dorcas Bolanos MD Work Phone: Division of Hematology & Oncology at [facility] Comment on above: Diffuse large B-cell lymphoma, unspecified body region Start: 01-27-2024 Telephone encounter Radha womack RN Work Phone: Hematology/Oncology Comment on above: Patient Update (Init ial CAR-T phone call) Start: 01-23-2024 ambulatory Radha Peng RN Work Phone: Hematology/Oncology Comment on above: CAR-T Therapy Start: 01-23-2024 E-mail encounter fro m caregiver Radha Peng RN Work Phone: [facility] Start: 01-16-2024 End: 01-16-2024 ambulatory Niesha Galdamez MD Work Phone: Hematology/Oncology Comment on above: 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) (Primary Dx) Start: 01-16-2024 End: 01-16-2024 Telemedicine consultation with patient Niesha Galdamez MD Work Phone: [facility] Start: 01-14-2024 Telephone encounter Ivania frias RN Work Phone: Hematology/Oncology Comment on above: Care Coordination (A ppointment; Treatment Questions) Start: 01-12-2024 End: 01-12-2024 Patient encounter procedure Michael Boykin MD Work Phone: [facility] Start: 01-12-2024 End: 01-12-2024 ambulatory Michael Boykin MD Work Phone: Hematology/Oncology Comment on above: 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) (Primary Dx); History of follicular lymphoma Start: 01-05-2024 End: 01-05-2024 ambulatory Niesha Galdamez MD Work Phone: Hematology/Oncology Comment on above: Non-Hodgkin lymphoma of lymph nodes of multiple regions, unspecified non-Hodgkin lymphoma type (HCC) (Primary Dx); 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) Start: 01-05-2024 End: 01-05-2024 Patient encounter procedure Niesha Galdamez MD Work Phone: [facility] Start: 12-30-2023 End: 12-30-2023 ambulatory MICHAEL BOYKIN Facility:[facility] Start: 12-30-2023 End: 12-30-2023 Patient encounter procedure Viviana Varela MD Work Phone: Radiation Oncology Comment on above: Follicular lymphoma grade IIIa, unspecified body region (HCC) (Primary Dx) Start: 12-29-2023 Telephone encounter Ivania frias RN Work Phone: Hematology/Oncology Comment on above: Care Coordination (A ppointment) Start: 12-25-2023 End: 12-25-2023 Patient encounter procedure [...] diffuse large B-cell lymphoma Start: 12-24-2023 End: 12-24-2023 ambulatory Chiquita RIVERA Facility: [facility] Start: 12-24-2023 End: 12-24-2023 Patient encounter procedure Chiquita Martins NILL General Surgery Nill/Said [place] Start: 12-22-2023 Telephone encounter Ivania frias RN Work Phone: Hematology/Oncology Comment on above: Care Coordination (P athology Results) Start: 12-17-2023 End: 12-17-2023 ambulatory Chiquita RIVERA Facility: [place] Start: 12-15-2023 Telephone encounter Michael parker MD Work Phone: [facility] Comment on above: Future Appointment Start: 12-09-2023 End: 12-09-2023 ambulatory Michael Boykin Facility:[facility] Start: 11-20-2023 End: 11-20-2023 ambulatory MICHAEL BOYKIN Facility:[facility] Start: 11-18-2023 End: 11-18-2023 ambulatory CLEO FELIZ Facility:[facility] Start: 10-29-2023 End: 10-29-2023 ambulatory MICHAEL BOYKIN Facility:[facility] Start: 10-28-2023 End: 10-28-2023 ambulatory MICHAEL BOYKIN Facility:[facility] Start: 10-23-2023 Telephone encounter Michael parker MD Work Phone: Hematology/Oncology Comment on above: Lab Orders Start: 10-01-2023 End: 10-01-2023 ambulatory Chair 10 [address] Work Phone: Hematology/Oncology Comment on above: 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) Start: 09-30-2023 End: 10-01-2023 ambulatory Lab/Port [place] Work Phone: Hematology/Oncology Comment on above: 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) Start: 09-23-2023 End: 09-23-2023 ambulatory MICHAEL BOYKIN Facility:[facility] Start: 09-03-2023 End: 09-03-2023 ambulatory Chair 10 [address] Work Phone: Hematology/Oncology Comment on above: 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) Start: 09-02-2023 End: 09-02-2023 Patient encounter procedure Michael Boykin MD Work Phone: [employer] Start: 09-02-2023 End: 09-02-2023 ambulatory Michael Boykin MD Work Phone: Hematology/Oncology Comment on above: 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) Start: 08-06-2023 End: 08-06-2023 ambulatory MICHAEL BOYKIN Facility:[facility] Start: 08-05-2023 End: 08-06-2023 ambulatory Lab/Port Nate [place] Work Phone: Hematology/Oncology Comment on above: 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) Start: 08-04-2023 Telephone encounter Cleo pacheco APRN.CNP Work Phone: Hematology/Oncology Comment on above: Lab Orders Start: 07-22-2023 End: 07-22-2023 ambulatory Lab/Port Nate [place] Work Phone: Hematology/Oncology Comment on above: 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) Start: 07-09-2023 End: 07-09-2023 ambulatory Chair 11 [address] Work Phone: Hematology/Oncology Comment on above: 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) Start: 07-08-2023 End: 07-08-2023 Patient encounter procedure Michael Boykin MD Work Phone: [facility] Start: 07-08-2023 End: 07-08-2023 ambulatory Lab/Port Nate Anson Work Phone: Hematology/Oncology Comment on above: Grade [...] Informed Consent) Start: 06-19-2023 End: 06-19-2023 ambulatory Lab/Port Nate Jordan Work Phone: Hematology/Oncology Comment on above: 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) Start: 06-17-2023 End: 06-17-2023 ambulatory Chiquita RIVERA Facility:[facility] Start: 06-17-2023 End: 06-17-2023 Patient encounter procedure Chiquita RIVERA General Surgery Nill/Said [place] Start: 06-12-2023 Telephone [...] RN Work Phone: Hematology/Oncology Comment on above: Customer Equipment Engineer - O ther (Uric Acid Results) Customer Equipment Engineer - O ther (Medication Problem) Start: 06-06-2023 End: 06-06-2023 ambulatory MICHAEL BOYKIN Facility:[facility] Start: 06-05-2023 End: 06-05-2023 Patient encounter procedure Michael Boykin MD Work Phone: [place] Start: 06-05-2023 End: 06-05-2023 ambulatory Lab/Port Nate [...] MD Work Phone: Hematology/Oncology Comment on above: Customer Equipment Engineer - O ther Start: 05-27-2023 End: 05-28-2023 ambulatory Niesha Galdamez MD Work Phone: Hematology/Oncology Comment on above: History of diffuse l arge B-cell lymphoma (Primary Dx); 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); 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) Start: 05-27-2023 End: 05-28-2023 Patient encounter procedure Niesha Galdamez MD Work Phone: [facility] Start: 05-23-2023 Telephone encounter Michael parker MD Work Phone: [facility] Comment on above: Appointment Start: 05-22-2023 End: 05-22-2023 ambulatory Michael Boykin [...] encounter Michael parker MD Work Phone: [facility] Comment on above: 2nd opinion path Start: 05-14-2023 End: 05-14-2023 Patient encounter procedure Chiquita RIVERA General Surgery Nill/Said [place] Start: 05-13-2023 End: 05-13-2023 ambulatory Michael Boykin MD Work Phone: Hematology/Oncology Comment on above: Non-Hodgkin lymphoma of lymph nodes of multiple regions, unspecified non-Hodgkin lymphoma type (HCC) (Primary Dx); Acquired hypothyroidism Start: 05-13-2023 End: 05-13-2023 Patient encounter procedure Michael Boykin MD Work Phone: [facility] Start: 04-29-2023 End: 04-29-2023 Patient encounter procedure Chiquita R MIGUEL General Surgery Nill/Said [place] Start: 04-02-2023 End: 04-03-2023 ambulatory EMELIA Martins [facility] Start: 04-02-2023 End: 04-02-2023 Subsequent hospital visit by physician [facility] Comment on above: Non-Hodgkin's lympho ma, unspecified body region, unspecified non-Hodgkin lymphoma type (HCC); Hypothyroidism, unspecified type Start: 04-05-2021 End: 04-05-2021 Subsequent hospital visit by physician [facility] Laboratory Comment on above: Non-Hodgkin's lympho ma, unspecified body region, unspecified non-Hodgkin lymphoma type (HCC); Hypothyroidism, unspecified type Start: 04-17-2020 End: 04-17-2020 Subsequent hospital visit by physician [facility] Drawing Room [facility] Laboratory Comment on above: Non-Hodgkin's lympho ma, unspecified body region, unspecified non-Hodgkin lymphoma type (HCC); Hypothyroidism, unspecified type; Encounter for screening for lung cancer Procedures Date Procedure Procedure Detail Performing Clinician Start: 05-13-2024 Blood count complete auto&auto difrntl wbc Niesha Galdamez MD Work Phone: Start: 05-13-2024 C-reactive protein Haris Galdamez MD Work Phone: Start: 04-23-2024 Antibody screen MICHAEL ARVIZU Comment on above: Order Comment: Speci men Type: BLOOD SPECIMENOrdering Facility: [facility] Address: [address] [place] [address] Performed By: #### T SCR ####CC MAIN BLOOD BANKCLIA [id number] [place] [address] [place] Start: 04-23-2024 End: 04-23-2024 Antibody screen rbc each serum technique Niesha Galdamez MD Work Phone: Start: 04-23-2024 CBC + DIFF Niesha diaz MD Work Phone: Start: 04-23-2024 End: 04-23-2024 Comprehensive metabolic panel Niesha Galdamez MD Work Phone: Start: 04-14-2024 Antibody screen MICHAEL ARVIZU Comment on above: Order Comment: Speci men Type: BLOOD SPECIMENOrdering Facility: [facility] Address: [address] [place] [address] Performed By: #### T SCR ####CC MAIN BLOOD BANKCLIA [id number] [place] [id number] [facility] Start: 04-11-2024 Antibody screen MICHAEL ARVIZU Comment on above: Order Comment: Speci men Type: BLOOD SPECIMENOrdering Facility: [facility] Address: [address] [place] [address] Performed By: #### T SCR ####CC MAIN BLOOD BANKCLIA [id number] [address] Start: 04-08-2024 Antibody screen MICHAEL ARVIZU Comment on above: Order Comment: Speci men Type: BLOOD SPECIMENOrdering Facility: [facility] Address: [address] [place] [address] Performed By: #### T SCR ####CC MAIN BLOOD BANKCLIA [id number] [address] Start: 04-06-2024 Antibody screen MICHAEL ARVIZU Comment on above: Order Comment: Speci men Type: BLOOD SPECIMENOrdering Facility: [facility] Address: [address] [place] [address] Performed By: #### T SCR ####CC MAIN BLOOD BANKCLIA [id number] [place] [id number] [facility] Start: 04-01-2024 Blood count complete auto&auto difrntl wbc Niesha Galdamez MD Work Phone: Start: 03-09-2024 Bilirubin direct Namrata Roy MD Work Phone: Start: 03-09-2024 C-reactive protein Giana Roy MD Work Phone: Start: 03-08-2024 Blood count complete auto&auto difrntl wbc Niesha Galdamez MD Work Phone: Start: 03-08-2024 C-reactive protein Haris Galdamez MD Work Phone: Start: 02-24-2024 Echocardiography MICHAEL BOYKIN Start: 02-24-2024 Antibody screen MICHAEL Onofre URPHY Comment on above: Order Comment: Speci men Type: BLOOD SPECIMENOrdering Facility: [facility] Address: [address] [place] [address] Performed By: #### T SCR ####CC MAIN BLOOD BANKCLIA [id number] [address] Start: 02-24-2024 Antibody screen rbc each serum technique Niesha Galdamez MD Work Phone: Start: 02-24-2024 D-DIMER Niesha diaz MD Work Phone: Start: 02-24-2024 Thromboplastin time partial plasma/whole blood Niesha Galdaemz MD Work Phone: Start: 01-28-2024 Comprehensive metabo lic panel Patti Isidro [employer] Work Phone: Start: 01-28-2024 Hepatitis b surf ant ibody hbsab Patti Isidro [employer] Work Phone: Start: 01-28-2024 Iaad ia hiv-1 ag w/h iv-1 & hiv-2 antbdy single Patti Isidro [employer] Work Phone: Start: 12-25-2023 Blood count complete auto&auto difrntl wbc Michael Boykin MD Work Phone: Start: 12-17-2023 Excision of inguinal lymph nodes Chiquita RIVERA Start: 09-30-2023 Blood count complete auto&auto difrntl [...] of implant able venous access port Chiquita RIVERA Start: 05-07-2023 Biopsy of inguinal l ymph node Chiquita RIVERA Start: 04-02-2023 End: 04-02-2023 Comprehensive metabolic panel [...] Chiquita GALLARDO Start: 01-20-2002 Bronchoscopy Chiquita [place] LL Biopsy of lymph node Chiquita RIVERA Plan of Treatment Date Care Activity Detail Author Start: 05-13-2027 Diabetes Screening Diabetes Screenin g [facility] Start: 05-03-2027 Diabetes Screening Diabetes Screenin g [facility] Start: 04-23-2027 Diabetes Screening Diabetes Screenin g [facility] Start: 04-14-2027 Diabetes Screening Diabetes Screenin g [facility] Start: 04-06-2027 Diabetes Screening Diabetes Screenin g [facility] Start: 04-01-2027 Diabetes Screening Diabetes Screenin g [facility] Start: 03-09-2027 Diabetes Screening Diabetes Screenin g [facility] Start: 03-08-2027 Diabetes Screening Diabetes Screenin g [facility] Start: 02-23-2027 Diabetes Screening Diabetes Screenin g [facility] Start: 01-27-2027 Diabetes Screening Diabetes Screenin g [facility] Start: 12-25-2026 Diabetes Screening Diabetes Screenin g [facility] Start: 11-18-2026 Diabetes Screening Diabetes Screenin g [facility] Start: 09-30-2026 Diabetes Screening Diabetes Screenin g [facility] Start: 09-02-2026 Diabetes Screening Diabetes Screenin g [facility] Start: 08-05-2026 Diabetes Screening Diabetes Screenin g [facility] Start: 07-22-2026 Diabetes Screening Diabetes Screenin g [facility] Start: 07-08-2026 [facility] Start: 06-19-2026 DIABET[facility]CREEN [facility] Start: 06-05-2026 DIABETES [facility]CREEN [facility] Start: 05-13-2026 DIABETES SCREEN [facility] Start: 07-04-2024 Influenza vaccination [facility] Start: 06-17-2024 End: 06-17-2024 Telephone follow-up 06/17/2024 3:00 PM EDT Visit (SP) Office Hematology/Oncology [address] [place] [address] Michael Boykin MD [address] [place] [address] [place] [address] lab & 2 month follow up from CAR-T infusion per phone encounter-date & time ok'd by [facility] Hematology/Oncology Comment on above: lab & 2 month follow up from CAR-T infusion per phone encounter-date & time ok'd by Kali Start: 06-17-2024 End: 06-17-2024 Patient encounter procedure 06/17/2024 2:45 PM EDT Office Visit [facility] [address] [place] [address] lab & 2 month follow up from CAR-T infusion per phone encounter-date & time ok'd by Adry [facility] Comment on above: lab & 2 month follow up from CAR-T infusion per phone encounter-date & time ok'd by Adry Start: 05-13-2024 End: 08-12-2024 C reactive protein [Mass/volume] in Serum or Plasma C-REACTIVE PROTEIN Lab Routine Diffuse large B-cell lymphoma, unspecified body region (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 Expected: 05/13/2024, Expires: 08/12/2024 [facility] Comment on above: Expected: 05/13/2024 , Expires: 08/12/2024 Start: 05-13-2024 End: 08-12-2024 CBC W Auto Differential panel - Blood COMPLETE BLOOD COUNT AND DIFFERENTIAL Lab Routine Diffuse large B-cell lymphoma, unspecified body region (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 Expected: 05/13/2024, Expires: 08/12/2024 [facility] Comment on above: Expected: 05/13/2024 , Expires: 08/12/2024 Start: 05-13-2024 End: 08-12-2024 Comprehensive metabolic 2000 panel - Serum or Plasma COMPREHENSIVE METABOLIC PANEL Lab Routine Diffuse large B-cell lymphoma, unspecified body region (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 Expected: 05/13/2024, Expires: 08/12/2024 [facility] Comment on above: Expected: 05/13/2024 , Expires: 08/12/2024 Start: 05-13-2024 End: 08-12-2024 CYTOMEGALOVIRUS (CMV) DNA, QUANTITATIVE PCR, PLASMA [facility] Comment on above: Expected: 05/13/2024 , Expires: 08/12/2024 Start: 05-13-2024 End: 08-12-2024 Ferritin [Mass/volume] in Serum or Plasma FERRITIN Lab Routine Diffuse large B-cell lymphoma, unspecified body region (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 Expected: 05/13/2024, Expires: 08/12/2024 [facility] Comment on above: Expected: 05/13/2024 , Expires: 08/12/2024 Start: 05-13-2024 End: 08-12-2024 Immunodeficiency panel - Blood by Flow cytometry (FC) [facility] Comment on above: Expected: 05/13/2024 , Expires: 08/12/2024 Start: 05-13-2024 End: 08-12-2024 IMMUNOGLOBULINS,IGG,IGA,I GM [facility] Comment on above: Expected: 05/13/2024 , Expires: 08/12/2024 Start: 05-13-2024 End: 08-12-2024 Lactate dehydrogenase [Enzymatic activity/volume] in Serum or Plasma LACTATE DEHYDROGENASE Lab Routine Diffuse large B-cell lymphoma, unspecified body region (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 Expected: 05/13/2024, Expires: 08/12/2024 [facility] Comment on above: Expected: 05/13/2024 , Expires: 08/12/2024 Start: 05-13-2024 End: 08-12-2024 Magnesium [Mass/volume] in Serum or Plasma MAGNESIUM Lab Routine Diffuse large B-cell lymphoma, unspecified body region (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 Expected: 05/13/2024, Expires: 08/12/2024 [facility] Comment on above: Expected: 05/13/2024 , Expires: 08/12/2024 Start: 05-13-2024 End: 08-12-2024 Phosphate [Mass/volume] in Serum or Plasma PHOSPHORUS INORGANIC Lab Routine Diffuse large B-cell lymphoma, unspecified body region (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 Expected: 05/13/2024, Expires: 08/12/2024 [facility] Comment on above: Expected: 05/13/2024 , Expires: 08/12/2024 Start: 05-13-2024 End: 05-13-2024 ambulatory Hematology/Oncology Comment on above: DLBCL/C83.38 Start: 05-13-2024 End: 05-13-2024 Patient encounter procedure Infectious Disease Comment on above: POST BMT REVACCINATI ON ASSESSMENT DLBCL/C83.38 Start: 05-07-2024 End: 05-07-2024 Patient encounter procedure 05/07/2024 12:00 PM EDT Appointment Radiology Pet CT [address] [place] [address] [place] [address] [facility] Comment on above: [facility] Start: 05-03-2024 End: 05-03-2024 Patient encounter procedure 05/03/2024 10:15 AM EDT Office Visit [facility] [address] [facility] [place] [address] lab [facility] Comment on above: lab Start: 04-23-2024 End: 07-23-2024 RUBEOLA (MEASLES)IGG [facility] Comment on above: Expected: 04/23/2024 , Expires: 07/23/2024 Start: 04-23-2024 End: 07-23-2024 VARICELLA ZOSTER IGG [facility] Work Phone: Comment on above: Expected: 04/23/2024 , Expires: 07/23/2024 Start: 04-16-2024 End: 04-16-2024 ambulatory Hematology/Oncology Comment on above: DLBCL/C83.38 Start: 04-06-2024 Subsequent hospital visit by physician 04/06/2024 Hospital Encounter HOSP MAIN G110 [address] [place] [address] [place] [address] [place] [address] Diffuse large B-cell lymphoma, unspecified site [C83.30] HOSP MAIN G110 Comment on above: Diffuse large B-cell lymphoma, unspecified site [C83.30] Start: 04-06-2024 End: 04-06-2024 Patient encounter procedure 04/06/2024 7:30 AM EDT Office Visit Admitting [address] [place] [address] DLBCL Admitting Comment on above: DLBCL Start: 04-03-2024 End: 04-03-2024 ambulatory 04/03/2024 7:30 AM EDT [facility] Hematology/Oncology [address] [place] [address] DLBCL/C83.38 Hematology/Oncology Comment on above: DLBCL/C83.38 Start: 04-02-2024 End: 04-02-2024 ambulatory 04/02/2024 10:15 AM EDT Infusion Center Hematology/Oncology [address] [place] [address] DLBCL/C83.38 Hematology/Oncology Comment on above: DLBCL/C83.38 Start: 04-01-2024 End: 04-01-2024 ambulatory Hematology/Oncology Comment on above: DLBCL DLBCL/C83.38 Start: 04-01-2024 End: 04-01-2024 ambulatory 04/01/2024 8:20 AM EDT Infusion Center Hematology/Oncology [address] [place] [address] DLBCL/C83.38 Hematology/Oncology Comment on above: DLBCL/C83.38 Start: 03-31-2024 End: 06-30-2024 Bilirubin.total [Mass/volume] in Serum or Plasma BILIRUBIN TOTAL BLD Lab Routine 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) Expected: 03/31/2024, Expires: 06/30/2024 [facility] Work Phone: Comment on above: Expected: 03/31/2024 , Expires: 06/30/2024 Start: 03-31-2024 End: 06-30-2024 C reactive protein [Mass/volume] in Serum or Plasma C-REACTIVE PROTEIN Lab Routine 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) Expected: 03/31/2024, Expires: 06/30/2024 [facility] Work Phone: Comment on above: Expected: 03/31/2024 , Expires: 06/30/2024 Start: 03-31-2024 End: 06-30-2024 CBC W Auto Differential panel - Blood COMPLETE BLOOD COUNT AND DIFFERENTIAL Lab Routine 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) Expected: 03/31/2024, Expires: 06/30/2024 [facility] Work Phone: Comment on above: Expected: 03/31/2024 , Expires: 06/30/2024 Start: 03-31-2024 End: 06-30-2024 Comprehensive metabolic 2000 panel - Serum or Plasma COMPREHENSIVE METABOLIC PANEL Lab Routine 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) Expected: 03/31/2024, Expires: 06/30/2024 [facility] Work Phone: Comment on above: Expected: 03/31/2024 , Expires: 06/30/2024 Start: 03-31-2024 End: 06-30-2024 Lactate dehydrogenase [Enzymatic activity/volume] in Serum or Plasma LACTATE DEHYDROGENASE Lab Routine 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) Expected: 03/31/2024, Expires: 06/30/2024 [facility] Work Phone: Comment on above: Expected: 03/31/2024 , Expires: 06/30/2024 Start: 03-31-2024 End: 06-30-2024 Phosphate [Mass/volume] in Serum or Plasma PHOSPHORUS INORGANIC Lab Routine 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) Expected: 03/31/2024, Expires: 06/30/2024 [facility] Work Phone: Comment on above: Expected: 03/31/2024 , Expires: 06/30/2024 Start: 03-31-2024 End: 06-30-2024 Urate [Mass/volume] in Serum or Plasma URIC ACID Lab Routine 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) Expected: 03/31/2024, Expires: 06/30/2024 [facility] Work Phone: Comment on above: Expected: 03/31/2024 , Expires: 06/30/2024 Start: 03-31-2024 End: 03-31-2024 Patient encounter procedure Molecular Imaging Comment on above: NM PET/CT SKULL-THIG H SUB Start: 03-22-2024 End: 03-22-2024 Patient encounter procedure Radiation Oncology Comment on above: Pelvis Location: [facility] TMENT REV Start: 03-19-2024 End: 03-19-2024 Patient encounter procedure 03/19/2024 3:15 PM EDT Appointment Radiation Oncology [address] [place] [address] [place] [address] Pelvis Radiation Oncology Comment on above: Pelvis Start: 03-18-2024 End: 03-18-2024 Patient encounter procedure 03/18/2024 1:30 PM EDT Appointment Radiation Oncology [address] [place] [address] Pelvis Radiation Oncology Comment on above: Pelvis Start: 03-17-2024 End: 03-17-2024 Patient encounter procedure 03/17/2024 9:45 AM EDT Appointment Radiation Oncology [address] [place] [address] Pelvis Radiation Oncology Comment on above: Pelvis Start: 03-16-2024 End: 03-16-2024 Patient encounter procedure Radiation Oncology Comment on above: NEW [place] PELVIS NEW START PELVIS - W [facility] LIKE AFTERNOONS Start: 03-15-2024 End: 03-15-2024 Patient encounter procedure Radiation Oncology Comment on above: radiate inguinal/pel margaret nodes per staff message radiate inguinal/pel margaret nodes Start: 03-09-2024 End: 03-09-2024 ambulatory 03/09/2024 9:30 AM EDT Infusion Center Hematology/Oncology [address] [place] [id number] DLBCL/C83.38 Hematology/Oncology Comment on above: DLBCL/C83.38 Start: 03-09-2024 End: 03-09-2024 Admission to same day surgery center 03/09/2024 7:30 AM EDT - 03/09/2024 9:30 AM EDT Surgery Angio [address] [place] [address] [address] [place] [address] INSERTION NON-TUNNELED CV CATHETER OVER AGE 5 Angio Comment on above: INSERTION NON-TUNNEL ED CV CATHETER OVER AGE 5 Start: 03-09-2024 Subsequent hospital visit by physician 03/09/2024 7:30 AM EDT Hospital Encounter Angio [address] [place] [address] [address] [place] [address] 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) [C83.38] Angio Comment on above: 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) [C83.38] Start: 03-09-2024 End: 03-09-2024 Insj non-tunneled central venous cath age 6 yr/> [facility] ANGIO HB6 Start: 03-08-2024 End: 03-08-2024 ambulatory Hematology/Oncology Comment on above: DLBCL DLBCL/C83.38 Start: 03-08-2024 End: 06-07-2024 BLOOD TB SCREEN [facility] Work Phone: Comment on above: Expected: 03/08/2024 , Expires: 06/07/2024 Start: 02-24-2024 End: 02-24-2024 Patient encounter procedure 02/24/2024 2:30 PM EDT Office Visit Cardiology [address] [place] [address] Diffuse large B-cell lymphoma of lymph nodes [...] multiple regions (HCC) Expected: 02/24/2024, Expires: 05/25/2024 [facility] Work Phone: Comment on above: Expected: 02/24/2024 , Expires: 05/25/2024 Start: 02-24-2024 End: 05-25-2024 BLOOD TB SCREEN [facility] Work Phone: Comment on above: Expected: 02/24/2024 , Expires: 05/25/2024 Start: 02-24-2024 End: 05-25-2024 CBC W Auto Differential panel - Blood COMPLETE BLOOD COUNT AND DIFFERENTIAL Lab Routine 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) Expected: 02/24/2024, Expires: 05/25/2024 [facility] Work Phone: Comment on above: Expected: 02/24/2024 , Expires: 05/25/2024 Start: 02-24-2024 End: 05-25-2024 Comprehensive metabolic 2000 panel - Serum or Plasma COMPREHENSIVE METABOLIC PANEL Lab Routine 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) Expected: 02/24/2024, Expires: 05/25/2024 [facility] Work Phone: Comment on above: Expected: 02/24/2024 , Expires: 05/25/2024 Start: 02-24-2024 End: 05-25-2024 Erythrocyte sedimentation rate SEDIMENTATION RATE, WESTERGREN Lab Routine 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) Expected: 02/24/2024, Expires: 05/25/2024 [facility] Work Phone: Comment on above: Expected: 02/24/2024 , Expires: 05/25/2024 Start: 02-24-2024 End: 05-25-2024 Fibrin D-dimer FEU [Mass/volume] in Platelet poor plasma D-DIMER Lab Routine 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) Expected: 02/24/2024, Expires: 05/25/2024 [facility] Work Phone: Comment on above: Expected: 02/24/2024 , Expires: 05/25/2024 Start: 02-24-2024 End: 05-25-2024 Fibrinogen [Mass/volume] in Platelet poor plasma by Coagulation assay FIBRINOGEN Lab Routine 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) Expected: 02/24/2024, Expires: 05/25/2024 [facility] Work Phone: Comment on above: Expected: 02/24/2024 , Expires: 05/25/2024 Start: 02-24-2024 End: 05-25-2024 Hepatitis B virus surface Ab [Presence] in Serum HEPATITIS B SURFACE ANTIBODY Lab Routine 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) Expected: 02/24/2024, Expires: 05/25/2024 [facility] Work Phone: Comment on above: Expected: 02/24/2024 , Expires: 05/25/2024 Start: 02-24-2024 End: 05-25-2024 IDM PANEL ADULT [facility] Work Phone: Comment on above: Expected: 02/24/2024 , Expires: 05/25/2024 Start: 02-24-2024 End: 05-25-2024 IMMUNOGLOBULINS,IGG,IGA,I GM IMMUNOGLOBULINS,IGG,IGA ,IGM Lab Routine 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) Expected: 02/24/2024, Expires: 05/25/2024 [facility] Work Phone: Comment on above: Expected: 02/24/2024 , Expires: 05/25/2024 Start: 02-24-2024 End: 05-25-2024 Lactate dehydrogenase [Enzymatic activity/volume] in Serum or Plasma LACTATE DEHYDROGENASE Lab Routine 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) Expected: 02/24/2024, Expires: 05/25/2024 [facility] Work Phone: Comment on above: Expected: 02/24/2024 , Expires: 05/25/2024 Start: 02-24-2024 End: 05-25-2024 Magnesium [Mass/volume] in Serum or Plasma MAGNESIUM Lab Routine 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) Expected: 02/24/2024, Expires: 05/25/2024 [facility] Work Phone: Comment on above: Expected: 02/24/2024 , Expires: 05/25/2024 Start: 02-24-2024 End: 05-25-2024 PT panel - Platelet poor plasma by Coagulation assay PROTHROMBIN TIME Lab Routine Personal history of diseases of blood and blood-forming organs 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) Expected: 02/24/2024, Expires: 05/25/2024 [facility] Work Phone: Comment on above: Expected: 02/24/2024 , Expires: 05/25/2024 Start: 02-24-2024 End: 05-25-2024 TYPE + SCREEN TYPE + SCREEN Blood Bank Routine 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) Expected: 02/24/2024, Expires: 05/25/2024 [facility] Work Phone: Comment on above: Expected: 02/24/2024 , Expires: 05/25/2024 Start: 02-24-2024 End: 02-24-2024 ambulatory Hematology/Oncology Comment on above: DLBCL PLEASE PAGE [id number] WHEN THE PATIENT CHECKS IN Start: 02-24-2024 End: 02-24-2024 Nursing evaluation of patient and report Hematology/Oncology Comment on above: PLEASE PAGE [id number] WHEN THE PATIENT CHECKS IN Start: 02-18-2024 End: 05-19-2024 Magnesium [Mass/volume] in Serum or Plasma MAGNESIUM Lab Routine 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) Expected: 02/18/2024, Expires: 05/19/2024 [facility] Work Phone: Comment on above: Expected: 02/18/2024 , Expires: 05/19/2024 Start: 01-20-2024 End: 02-18-2025 PET+CT Guidance for localization of tumor of Skull base to mid-thigh-- W [id number] IV NM PET/CT SKULL-THIGH SUBSEQUENT Radiology Routine 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) Expected: 01/20/2024 (Approximate), Expires: 02/18/2025 [facility] Work Phone: Comment on above: Expected: 01/20/2024 (Approximate), Expires: 02/18/2025 Start: 12-25-2023 End: 03-25-2024 Nyih-6-Nqvvtwcluhvcy [Mass/volume] in Serum or Plasma [facility] Work Phone: Comment on above: Expected: 12/25/2023 , Expires: 03/25/2024 Start: 11-03-2023 Advance Directive Discussion Advance Directive Discussion [facility] Start: 11-03-2023 Behavioral Health Screening Behavioral Health Screening [facility] Start: 11-03-2023 Depression Assessment Depression Ass essment [facility] Start: 10-28-2023 End: 01-27-2024 CBC W Auto Differential panel - Blood CBC + DIFF Lab Routine 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) Expected: 10/28/2023, Expires: 01/27/2024 [facility] Work Phone: Comment on above: Expected: 10/28/2023 , Expires: 01/27/2024 Start: 10-28-2023 End: 01-27-2024 Comprehensive metabolic 2000 panel - Serum or Plasma COMP METABOLIC PANEL Lab Routine 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) Expected: 10/28/2023, Expires: 01/27/2024 [facility] Work Phone: Comment on above: Expected: 10/28/2023 , Expires: 01/27/2024 Start: 08-05-2023 End: 10-05-2023 CBC W Auto Differential panel - Blood CBC + DIFF Lab Routine 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) Expected: 08/05/2023, Expires: 10/05/2023 [facility] Work Phone: Comment on above: Expected: 08/05/2023 , Expires: 10/05/2023 Start: 08-05-2023 End: 10-05-2023 Comprehensive metabolic 2000 panel - Serum or Plasma COMP METABOLIC PANEL Lab Routine 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) Expected: 08/05/2023, Expires: 10/05/2023 [facility] Work Phone: Comment on above: Expected: 08/05/2023 , Expires: 10/05/2023 Start: 07-22-2023 End: 09-21-2023 Basic metabolic 2000 panel - Serum or Plasma BASIC METABOLIC PNL Lab Routine 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) Expected: 07/22/2023 (Approximate), Expires: 09/21/2023 [facility] Work Phone: Comment on above: Expected: 07/22/2023 (Approximate), Expires: 09/21/2023 Start: 07-22-2023 End: 09-21-2023 CBC W Auto Differential panel - Blood CBC + DIFF Lab Routine 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) Expected: 07/22/2023 (Approximate), Expires: 09/21/2023 [facility] Work Phone: Comment on above: Expected: 07/22/2023 (Approximate), Expires: 09/21/2023 Start: 07-22-2023 End: 09-21-2023 Urate [Mass/volume] in Serum or Plasma URIC ACID BLOOD Lab Routine 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 Start: 05-13-2023 End: 07-13-2023 [id number] [Mass/volume] in Serum or Plasma [facility] Work Phone: Comment on above: Expected: 05/13/2023 , Expires: 07/13/2023 Start: 05-13-2023 End: 07-13-2023 Chronic hepatitis differentiation between hepatitis B and C virus panel - Serum or Plasma [facility] Work Phone: Comment on above: Expected: 05/13/2023 , Expires: 07/13/2023 Start: 04-16-2023 End: 04-16-2023 Patient encounter procedure 04/16/2023 Office Visit Oncology Emelia Gonzalez MD [address] [place] [address] [facility] Start: 04-02-2023 Annual Wellness Visi t (AWV) Annual Wellness Visit (AWV) [facility] [employer] Start: 11-03-2022 ADVANCE DIRECTIVE DISCUSSION ADVANCE DIRECTIVE DISCUSSION [facility] Start: 11-03-2022 DEPRESSION ASSESSMENT DEPRESSION ASS ESSMENT [facility] Start: 04-05-2022 Thyroid stimulating hormone measurement TSH testing [employer] Phone: Start: 2021 Abdominal aortic ane urysm screening [facility] Start: 2021 PNEUMOCOCCAL: 65+ (1 - PCV) PNEUMOCOCCAL: 65+ (1 - PCV) [facility] Start: 07-04-2021 Influenza vaccination Flu vacc ine (Season Ended) [facility] [employer] Phone: Start: 04-18-2021 End: 04-18-2021 Patient encounter procedure 04/18/2021 Office Visit Oncology Maritza Mendoza MD [address] [place], [place] [id number] [facility] Start: 07-04-2020 Influenza vaccination Flu vacc ine (Season Ended) [place], [place] Start: 04-19-2020 End: 04-19-2020 Office Visit 04/19/2020 Office Visit Oncology Maritza Mendoza MD [address] [place] [address] [facility] Start: 02-17-2020 TSH Qn TSH testing [place], [place] Start: 2016 RSV Vaccine (1 - 1-d ose 60+ series) RSV Vaccine (1 - 1-dose 60+ series) [facility] Start: 2011 PROSTATE CANCER SCRE ENING DISCUSSION PROSTATE CANCER SCREENING DISCUSSION [facility] Start: 2011 Prostate specific an tigen measurement Prostate Cancer Screening Discussion [facility] Start: 2006 Prostate specific an tigen measurement PROSTATE CANCER SCREENING DISCUSSION [facility] Start: 2006 Screening for malign ant neoplasm of colon Colon cancer screen colonoscopy [place], [place] Start: 2006 Screening for malign ant neoplasm of lung Lung Cancer Screening [facility] Start: 2006 Shingles Vaccine (1 of 2) Barrera gles Vaccine (1 of 2) [place] Start: 2006 SHINGRIX VACCINE (1 of 2) BARRERA GRIX VACCINE (1 of 2) [facility] Start: 2001 COLOGUARD (FIT-DNA) COLOGUARD (FIT-D NA) [facility] Start: 2001 Colonoscopy COLONOSCOPY [facility] Start: 2001 COLORECTAL CANCER SCREENING COLORECTAL CANCER SCREENING [facility] Start: [address] COLONOGRAPHY [facility] Start: 2001 FECAL OCCULT BLOOD FECAL OCCULT BLOO D [facility] Start: 2001 Screening for malign ant neoplasm of colon [facility] Start: 2001 SIGMOIDOSCOPY SIGMOIDOSCOPY [facility] Start: 1996 Lipid panel [facility] Start: 1991 Lipid 1996 panel - S bucky or Plasma Lipid Screening [facility] Start: 1991 Lipid panel Lipid Screening [facility] Start: 1991 LIPID SCREEN LIPID SCREEN [facility] Start: 1975 DTaP/Tdap/Td vaccine (1 - Tdap) DTaP/Tdap/Td vaccine (1 - Tdap) [facility] Start: 1975 Shingles vaccine (1 of 2) Barrera gles vaccine (1 of 2) [facility] Start: 1975 SHINGRIX VACCINE (1 of 2) BARRERA GRIX VACCINE (1 of 2) [facility] Start: 1975 Third diphtheria, te tanus and acellular pertussis (DTaP) vaccination TDAP (ADULT) [facility] Start: 1975 Urine microalbumin profile [facility] Start: 1975 Zoster vaccine hzv l michael for subcutaneous use ZOSTER (SHINGLES) VACCINE (1 of 2) [facility] Start: 1974 Annual PCP Team Radiology Supervisor brandon Disease Visit Annual PCP Team Chronic Disease Visit [facility] Start: 1974 Anxiety Screening Anxiety Screening [facility] Start: 1974 Depression Screening Depression Scre ening [facility] Start: 1974 Hepatitis C screening [facility] Start: 1974 HEPATITIS C SCREENING [facility] Start: 1971 HIV screening HIV screen [facility]- [place], [place] Start: 1968 COVID-19 Vaccine (1) COVID-19 Vaccin e (1) [facility] Work Phone: Start: 1968 Depression Screen Depression Screen [facility] Start: 1962 Pneumococcal 0-64 ye ars Vaccine (1 of 3 - PCV13) Pneumococcal 0-64 years Vaccine (1 of 3 - PCV13) [place] Start: 1962 Pneumococcal 0-64 ye ars Vaccine (1 of 4 - PCV13) Pneumococcal 0-64 years Vaccine (1 of 4 - PCV13) [facility] [employer] Phone: Start: 1962 Pneumococcal 65+ yea rs Vaccine (1 - PCV) Pneumococcal 65+ years Vaccine (1 - PCV) [facility] Start: 1962 Pneumococcal vaccination PNEUM OCOCCAL VACCINE SERIES (1 of 2 - PCV) [facility] Start: 1962 Pneumococcal Vaccine : 65+ (1 - PCV) Pneumococcal Vaccine: 65+ (1 - PCV) [facility] Start: 1962 Pneumococcal Vaccine : 65+ (1 of 2 - PCV) Pneumococcal Vaccine: 65+ (1 of 2 - PCV) [facility] Start: 1962 PNEUMOCOCCAL: 65+ (1 - PCV) PNEUMOCOCCAL: 65+ (1 - PCV) [facility] Start: 1961 COVID-19 VACCINE (#1) COVID-19 VACCI NE (#1) [facility] Start: 03-18-1957 COVID-19 Vaccine (#1) COVID-19 Vacci ne (#1) [facility] Start: 1956 ABDOMINAL AORTIC ANE URYSM SCREENING ABDOMINAL AORTIC ANEURYSM SCREENING [facility] Start: 1956 Abdominal aortic ane urysm screening Abdominal Aortic Aneurysm Screening [facility] Start: 1956 Hepatitis C screening Hepatitis C sc reen [place] Start: 1956 Tetanus vaccination TETANUS [facility] Start: 1956 Thyroid stimulating hormone measurement TSH [facility] CBC AND ELECTRONIC DIFF CBC AND ELECTRONIC DIFF Lab Routine Diffuse large B-cell lymphoma, unspecified body region Ordered: 01/28/2024 [facility] Work Phone: Comment on above: Ordered: 01/28/2024 CBC W Auto Different ial panel - Blood COMPLETE BLOOD COUNT AND DIFFERENTIAL Lab Routine 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) 04/23/2024 7:53 AM EDT [facility] End: 04-23-2025 CBC W Auto Differential panel - Blood COMPLETE BLOOD COUNT AND DIFFERENTIAL Lab Routine History of engineered cell therapy infusion Once per week for 2 Occurrences starting 04/23/2024 until 04/23/2025 [facility] Comment on above: Once per week for 2 Occurrences starting 04/23/2024 until 04/23/2025 CELLULAR THERAPY COLLECTION AND PROCESSING CELLULAR THERAPY COLLECTION AND PROCESSING Procedures Routine 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) Ordered: 03/02/2024 [facility] Work Phone: Comment on above: Ordered: 03/02/2024 End: 04-23-2025 Comprehensive metabolic 2000 panel - Serum or Plasma COMPREHENSIVE METABOLIC PANEL Lab Routine History of engineered cell therapy infusion Once per week for 2 Occurrences starting 04/23/2024 until 04/23/2025 [facility] Comment on above: Once per week for 2 Occurrences starting 04/23/2024 until 04/23/2025 CT Guidance for radi ation treatment of Unspecified body region CT SIM PLANNING RADIATION ONCOLOGY Radiology Routine Follicular lymphoma grade IIIa, unspecified body region (HCC) Ordered: 03/15/2024 [facility] Work Phone: Comment on above: Ordered: 03/15/2024 End: 02-17-2025 ECG COMPLETE ECG COMPLETE ECG Routine 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) 1 Occurrences starting 02/18/2024 until 02/17/2025 [facility] Work Phone: Comment on above: 1 Occurrences starti ng 02/18/2024 until 02/17/2025 End: 05-19-2024 Echocardiography ECHO Cardiology Routine Non-Hodgkin lymphoma of lymph nodes of multiple regions, unspecified non-Hodgkin lymphoma type (HCC) DE DIOS (dyspnea on exertion) 1 Occurrences starting 05/19/2023 until 05/19/2024 [facility] Work Phone: Comment on above: 1 Occurrences starti ng 05/19/2023 until 05/19/2024 End: 02-17-2025 Echocardiography ECHO Cardiology Routine 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) Encounter for monitoring cardiotoxic drug therapy 1 Occurrences starting 02/18/2024 until 02/17/2025 [facility] Work Phone: Comment on above: 1 Occurrences starti ng 02/18/2024 until 02/17/2025 IR CENTRAL CATHETER PLACEMENT IR CENTRAL CATHETER PLACEMENT Radiology Routine 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) Ordered: 02/18/2024 [facility] Work Phone: Comment on above: Ordered: 02/18/2024 End: 04-23-2025 Magnesium [Mass/volume] in Serum or Plasma MAGNESIUM Lab Routine History of engineered cell therapy infusion Once per week for 2 Occurrences starting 04/23/2024 until 04/23/2025 [facility] Work Phone: Comment on above: Once per week for 2 Occurrences starting 04/23/2024 until 04/23/2025 End: 10-01-2024 NM PET/CT SKULL-THIGH SUBSEQUENT NM PET/CT SKULL-THIGH SUBSEQUENT Radiology Routine 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) 1 Occurrences starting 09/02/2023 until 10/01/2024 [facility] Work Phone: Comment on above: 1 Occurrences starti ng 09/02/2023 until 10/01/2024 OUTSIDE SURG PATH SL REMI REVIEW OUTSIDE SURG PATH SLIDE REVIEW Lab Routine Non-Hodgkin lymphoma of lymph nodes of multiple regions, unspecified non-Hodgkin lymphoma type (HCC) Ordered: 12/22/2023 [facility] Work Phone: Comment on above: Ordered: 12/22/2023 End: 03-19-2025 PET+CT Guidance for localization of tumor of Skull base to mid-thigh-- W 18F-FDG IV NM PET/CT SKULL-THIGH SUBSEQUENT Radiology Routine Diffuse large B-cell lymphoma, unspecified body region (HCC) 1 Occurrences starting 02/18/2024 until 03/19/2025 [facility] Work Phone: Comment on above: 1 Occurrences starti ng 02/18/2024 until 03/19/2025 End: 05-06-2025 PET+CT Guidance for localization of tumor of Skull base to mid-thigh-- W 18F-FDG IV NM PET/CT SKULL-THIGH SUBSEQUENT Radiology Routine Diffuse large B-cell lymphoma, unspecified body region (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 1 Occurrences starting 04/06/2024 until 05/06/2025 [facility] Work Phone: Comment on above: 1 Occurrences starti ng 04/06/2024 until 05/06/2025 STAFF REVIEW STAFF REVIEW Lab Routine 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) 04/23/2024 7:53 AM EDT [facility] End: 03-19-2025 XR Chest PA and Lateral XR CHEST 2V FRONTAL/LAT Radiology Routine 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) 1 Occurrences starting 02/18/2024 until 03/19/2025 [facility] Work Phone: Comment on above: 1 Occurrences starti ng 02/18/2024 until 03/19/2025 [facility] Immunizations Immunization Date Immunization Notes Care Provider Marcus lujan NEGATED: Highlighted row has not occurred!12-09-2023 influenza virus vaccine, unspecified formulation Chiquita RIVERA [facility] [place] Payers Date Payer Category Payer Medicare [id number] 2021 Private Health Insurance [id number] 2021 Unknown GENERIC PAYOR ME DICARE SUPPLEMENT [id number] 2021-Present [address] [address] [place] [address] [id number] 2021 Medicare [id number] 2021 Private Health Insurance CLI [id number] 2017 Private Health Insurance [facility] xxxxxxxxx 2017-Present [phone] [address] [place] [address] xxxxxxxxx [id number] 2017 Private Health Insurance [facility] - CHOICE PLU [id number] 2017-Present [phone] [address] [place] [address] [id number] 2017 Private Health Insurance [facility] - CHOICE PLU [id number] 2017-Present [phone] [address] [place] [address] [id number] 1956 Unknown [id number] 1956 Unknown [id number] 1956 Unknown [id number] 1956 Unknown [id number] 1956 Unknown [id number] 1956 Unknown [id number] 1956 Unknown [id number] Social History Date Type Detail Facility Start: 02-24-2019 End: 06-08-2024 Tobacco smoking status NHIS [facility] Start: 11-03-1995 End: 11-03-2009 History of tobacco use Current smoker [place] Start: 11-03-1995 End: 11-03-2009 History of tobacco use Cigarette Smoker [place] Start: 02-24-2019 End: 04-17-2022 Alcohol intake Not Asked [place], [place] Start: 1955 Sex Assigned At Not on file M [place], [place] Exposure to SARS-CoV -2 (event) Unable to assess [place] Start: 02-24-2019 End: 12-30-2023 Tobacco use and exposure Never used [facility] Tobacco smoking status Never [facility] [place] Start: 05-13-2023 End: 01-05-2024 Sex Assigned At Male [facility] History of tobacco use Passive smoker [facility] Start: 05-13-2023 End: 02-02-2024 Alcohol intake Ex-drinker (finding) [facility] Start: 05-13-2023 End: 01-05-2024 History of Social function [facility] Start: 12-30-2023 End: 05-13-2024 Alcohol intake Current drinker of alcohol (finding) [facility] Start: 12-30-2023 Alcohol Comment beer occ [facility] Medical Equipment Procedure Code Equipment Code Equipment Origin al Text Equipment Identifier Dates -05/28/2023 [id number] Start: 05-28-2023 Comment on above: Description: Placed @ [facility] Functional Status Date Assessment Result Facility 06-08-2024 [facility] [place] 04-29-2023 Functional Status N/A [facility] Clinical Notes 02-02-2023 to 06-08-2024 Telephone Encounter - Mitra Amaro LISW - 06/02/2024 3:36 PM EDTTelephone Encounter - Mitra Amaro LISW - 06/02/2024 3:36 PM EDTTelephone Encounter - Aurora Alvarez - 05/27/2024 2:13 PM EDT Note Date & Type Note Facility 06-08-2024 Note General Surgery Offi ce/Clinic Note Chief Complaint consultation for abnl PET scan HPI Staff 68 year old male presents on consultation from Dr. Boykin for abnormal PET scan. PET scan completed 05/11/24 with hypermetabolic focus in the sigmoid. Patient never had colonoscopy in the past. Denies abdominal or rectal pain. No rectal bleeding or change in bowel habits. Denies nausea or vomiting. No unexplained weight loss. No known family history of colon cancer. History of Present Illness 68 yo male with h/o hypothyroidism, recurrent lymphoma, GERD; referred by Dr Boykin for abnormal PET scan, increased activity in sigmoid colon; has been present in past; denies change in bms or gross blood in stools; no abd complaints; no abd operations or previous colonoscopy; no asa or NSAID use; no tobacco use; no fmhx of GI malignancy or IBD. Review of Systems PHQ Score Initial Depression Screen Score: 0 SCORE ROS - Provider Constitutional: no fever, no sweats, no weight loss. Eyes: yes glasses, no blurred vision, no visual loss. [...] no dysuria. Musculoskeletal: no pain, no weakness. intermittent right leg swelling Skin: no changing moles, no rash, no [...] & Measurements HR: 72(Peripheral) RR: 16 BP: 122/80 HT: 70 in HT: 177.8 cm WT: 83.7 kg WT: 184.14 lb BMI: 26.48 HEENT: normal conjunctiva, sclera clear, no scleral [...] normal bs Lymphatic: no cervical adenopathy, no supraclavicular adenopathy. Musculoskeletal: normal gait, digits and nails without infection, nodes, cyanosis, clubbing. Skin: no rashes, no lesions, no ulcers, no subcutaneous nodules, induration. Psychiatric/Neuro: oriented to time, place, person, judgement normal, affect appropriate for age, insight intact, no focal deficits. Tests: , x-rays reviewed, review of old records completed , Discussed surgical options, risks, and possible complications with patient. Assessment/Plan 1. Abnormal PET scan of colon (R94.8: Abnormal results of function studies of other organs and systems) plan colonoscopy under anesthesia, informed consent obtained. Follow-up No qualifying data available Problem List/Past Medical History Ongoing Abnormal PET scan of colon BMI 26.0-26.9,adult Diffuse large B-cell lymphoma Encounter for care related to Port-a-Cath GERD (gastroesophageal reflux disease) Hypothyroidism Inguinal adenopathy Inguinal mass Overweight Historical No qualifying data Procedure/Surgical History Excision of inguinal lymph nodes (12/17/2023), Insertion of implantable venous access port (05/28/2023), Biopsy of inguinal lymph node (05/07/2023), Thoracentesis (01/28/2002), Bronchoscopy (01/20/2002), Biopsy of lymph node. Medications acyclovir 400 mg Tab, 400 mg= 1 tab(s), Oral, BID Fish Oil levothyroxine 125 mcg (0.125 mg) Tab, 125 mcg= 1 tab(s), Oral, Daily Multi Vitamins oral tablet, 1 tab(s), Oral, Daily sulfamethoxazole-trimethoprim 800 mg-160 mg Tab, 1 tab(s), Oral, MonWedFri Allergies allopurinol Social History Alcohol - Denies Alcohol Use, 04/29/2023 Substance Abuse - Denies Substance Abuse, 04/29/2023 Tobacco Former smoker, quit more than 30 days ago Tobacco Use:. Never Smokeless Tobacco Use:. Cigarettes, 1 per day. Started age 16.0 Years. Stopped age 46 Years., 06/08/2024 Family History Diabetes mellitus type 2: Mother. Heart disease: Mother. Hypertension: Mother. Primary malignant neoplasm of skin: Father. Immunizations Vaccine Date Status Comments influenza virus vaccine, inactivated - Not Given Patient Refuses [facility] Comment on above: Result Comment: Elec tronically Signed By: MIGUEL LOFTON, Chiquita Mas\Date and Time Signed: 06/08/24 14:22 EDT 06-02-2024 Telephone encounter Note SOCIAL WORK FOLLOW UP NOTE: [facility] Date of service:06/02/2024 Katia Shaikh is being seen for a follow up social work visit. Today's visit includes: spouse- Jennifer TOPICS ADDRESSED: finances I received a call Thursday 05/31 regarding incorrect billing totoaling 8k per patients Jennifer. Jennifer has contacted Medicare and our [facility] billing dept with no resolve. I have escalated to [facility], industrial production manager Radhika Blanco and additional BMT cloud systems administrator. I called patient today and explained the team is reviewing the billing issue and will follow up soon. PLAN: Assist with financial support applications, Communicate pertinent medical/psychosocial information to Cancer Center team, Continue follow up as needed , Provide emotional support to patient/family, Referral to community resource , and Monitor patient response to treatment F/U APPOINTMENT: PRN Assigned SW listed in Care Team tab: Yes FREDA Cabrera [facility] Work Phone: 06-02-2024 Miscellaneous Notes SOCIAL WORK FOLLOW UP NOTE: CANCER CENTER Date of service:06/02/2024 Katia Shaikh is being seen for a follow up social work visit. Today's visit includes: spouse- Jennifer TOPICS ADDRESSED: finances I received a call Thursday 05/31 regarding incorrect billing totoaling 8k per patients Jennifer. Jennifer has contacted Medicare and our [facility] billing dept with no resolve. I have escalated to [facility], industrial production manager Radhika Blanco and additional BMT cloud systems administrator. I called patient today and explained the team is reviewing the billing issue and will follow up soon. PLAN: Assist with financial support applications, Communicate pertinent medical/psychosocial information to Cancer Center team, Continue follow up as needed , Provide emotional support to patient/family, Referral to community resource , and Monitor patient response to treatment F/U APPOINTMENT: PRN Assigned SW listed in Care Team tab: Yes FREDA Cabrera documented in this encounter [facility] 05-27-2024 Telephone encounter Note Spoke to patient & scheduled him on 06/17/2024 for labs at 2:45 pm & BRM at 3 pm. Aurora Alvarez [facility] 05-27-2024 Miscellaneous Notes Spoke to patient & scheduled him on 06/17/2024 for labs at 2:45 pm & BRM at 3 pm. Aurora Alvarez Roverto called back checking on status of appt. He claims he was supposed to have an appt at the end of May. I told him what was happening and that we would call him back soon with an appt date and time. Good Morning Maria Esther, Please Advise on what date and time to put this Patient on [facility]'s schedule in June. Thank you! MIRIAN Garcia Clerical: Pt will need to see BR for labs and RV in june. Please schedule and call pt w/ the appointment. Thanks! Ivania Jackman RN Images from the original note were not included. Michael Boykin MD Winter, Allison, MD; Ivania Jackman, STEVE Got it. We will schedule follow-up here at 2 months from CAR-T infusion (june). Michael Adams Previous Messages ----- Message ----- From: Niesha Galdamez MD Sent: 05/17/2024 1:56 PM EDT To: Michael Boykin MD; Ivania Jackman, STEVE He does not want to come downtown to see me...he is still pretty upset about coming here for CAR T in the first place. My nurse is sending over the post CAR T packet and requests. We also advised him to call and get an appt scheduled. ----- Message ----- From: Michael Boykin MD Sent: 05/17/2024 11:43 AM EDT To: Ivania Jackman RN; Niesha Galdamez MD Thanks for the update. At this point he has no follow-up scheduled with me. Would it be best that he see you at main [place], or see me at our [place] office? I can then ask our nurse to contact him to make arrangements. YoursMichael ----- Message ----- From: Niesha Galdamez MD Sent: 05/15/2024 6:39 PM EDT To: Michael Boykin MD He made it through [facility] CAR T-cell therapy. PET with CMR! I recommended colonoscopy given the X for uptake in the sigmoid colon. He should stay on bactrim until CD4 count is above 200 on 2 reads. documented in this encounter [facility] 05-20-2024 Telephone encounter Note Roverto called back checking on status of appt. He claims he was supposed to have an appt at the end of May. I told him what was happening and that we would call him back soon with an appt date and time. [facility] 05-18-2024 Telephone encounter Note Good Morning Maria Esther, Please Advise on what date and time to put this Patient on [facility]'s schedule in June. Thank you! MIRIAN Garcia [facility] 05-17-2024 Telephone encounter Note Clerical: Pt will need to see [facility] for labs and RV in mid June. Please schedule and call pt w/ the appointment. Thanks! Ivania Jackman RN [facility] Work Phone: 05-17-2024 Telephone encounter Note Images from the original note were not included. Michael Boykin MD Winter, Allison, MD; Ivania Jackman, STEVE Got it. We will schedule follow-up here at 2 months from CAR-T infusion (june). ThanksMichael Previous Messages ----- Message ----- From: Niesha Galdamez MD Sent: 05/17/2024 1:56 PM EDT To: Michael Boykin MD; Ivania Jackman RN He does not want to come downtown to see me...he is still pretty upset about coming here for CAR T in the first place. My nurse is sending over the post CAR T packet and requests. We also advised him to call and get an appt scheduled. ----- Message ----- From: Michael Boykin MD Sent: 05/17/2024 11:43 AM EDT To: Ivania Jackman RN; Niesha Galdamez MD Thanks for the update. At this point he has no follow-up scheduled with me. Would it be best that he see you at main [facility], or see me at our [place] office? I can then ask our nurse to contact him to make arrangements. Michael Lawrence ----- Message ----- From: Niesha Galdamez MD Sent: 05/15/2024 6:39 PM EDT To: Michael Boykin MD He made it through [facility] CAR T-cell therapy. PET with CMR! I recommended colonoscopy given the X for uptake in the sigmoid colon. He should stay on bactrim until CD4 count is above 200 on 2 reads. [facility] 05-13-2024 Note [facility] 05-13-2024 History of Present illness Narrative Social Work Survivorship Note Information/Referral: Katia Shaikh is a 68 year old who was referred by to Cancer Center Social Work for survivorship assessment, evaluation and follow up. Persons Interviewed: Patient Katia Shaikh and Caregiver: Jennifer Shaikh Patient Affect/Mood: The patient is noted as appropriate Assessment: 1-3 months post cancer treatment one month post CAR T-cell follow - up DIAGNOSIS: B-cell NHL REASON FOR VISIT: Follow up Transplant physician - Niesha Galdamez MD Concerns: Physical functioning/care: Received axi-cell [facility] complicated by ICANS. Apr 2024: Admitted for CAR T-cell therapy. [facility] infused on 04/06. He was dsicharged on 04/14 and as he was driving home developed aphasia. Episode was brief but was admitted through ED for suspected ICANS. Started dex and no recurrence of symptoms. Keppra was stopped due to severe agitation. Discharged robert on dex taper. Doing well today, completely asymptomatic Roverto reports no concerns with fatigue or issues with sleep. Roverto is not taking naps, , walks up to 3.5 miles and is overall feeling quite physically well. Appetite is consistent with no concerns as well. Care-partner: Jennifer is coping well at this time and feels that Roverto is doing a good job at this time in response to recovery. Social well-being: Level of activity at home and ability to get out of the house Roverto shared that he wants to get out of the house but has additional weeks prior to being able to drive. 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 Roverto shared he is overall just bored. Emotional: Any symptoms of depression or anxiety Roverto shared that he was quite irritable through this process. Roverto is appropriate to circumstances but there is noticeable irritation as he processed going through CAR-T . Today Roverto reports that his mood has improved. Financial: Travel related costs Approved for the Urgent Need yanira $500- 03/22/2024-03/22/2025, Patient Aid $100 one-time stipend, he has been approved, Patient shared he thought he would be referred to the executive creative director of the [employer] product but was not referred. I have updated the nurse campground caretaker for additional assistance. I will also speak with the financial navigator in response to potential assistance with insurance premiums. Identified Problems/Needs: Financial- Could benefit from ongoing financial assistance Identified Strengths: supportive relationships with immediate family and with friends hopefulness Hobbies Interests Referrals: Financial Navigator Impression/Plan: Today I met Roverto for a 1 month post CAR T-cell follow - up. Roverto is accompanied by his spouse Jennifer. Roverto was admitted for CAR T-cell therapy. [facility] infused on 04/06. He was discharged on 04/14 and as he was driving home developed aphasia. Episode was brief but was admitted through ED for suspected ICANS.Roverto reports no concerns with fatigue or issues with sleep. Roverto is not taking naps, , walks up to 3.5 miles and is overall feeling quite physically well. Appetite is consistent with no concerns as well. Roverto shared that he wants to get out of the house but has additional weeks prior to being able to drive due to the no driving restriction of 8 weeks with CAR-T .Roverto shared that he was quite irritable through this process. Roverto is appropriate to circumstances but there is noticeable irritation as he processed going through CAR-T . Today Roverto reports that his mood has improved. Roverto shared he is overall just bored and is looking forward to returning to hobbies. Patient shared he thought he would be referred to the executive creative director of the [employer] for travel related financial assistance but was not referred. I have updated the nurse campground caretaker for additional assistance. I will also speak with the financial navigator in response to potential assistance with insurance premiums. Roverto did receive assistance with [facility] Urgent Need and the patient aid stipend. Resources Provided: SW Survivorship Packet delivered via In-person during face to face visit Additional resource information provided: Facing Forward Life after Cancer Treatment. Follow-Up Appointment: I will refer the patient to local cancer center social services manager in [place] for ongoing care as needed.. Transfer care back to Dr. Boykin in [place] FREDA Cabrera documented in this encounter [facility] 05-13-2024 Nurse Note Additional intake questions: Has the patient had fever, nausea, vomiting, diarrhea, constipation, fatigue for > 1 week? No Does the patient have a decreased appetite? No Does patient want to see a Sales Office Assistant? No (yes to any of above refer patient to schedulers for dietitian appointment) ) Does patient have any new or increased numbness or tingling of extremities? No Is patient interested in fertility information? No Does patient need any prescription refills? No Does patient have an advanced directive in place? No [facility] 05-13-2024 Nurse Note Additional intake questions: Has the patient had fever, nausea, vomiting, diarrhea, constipation, fatigue for > 1 week? No Does the patient have a decreased appetite? No Does patient want to see a Sales Office Assistant? No (yes to any of above refer patient to schedulers for dietitian appointment) ) Does patient have any new or increased numbness or tingling of extremities? No Is patient interested in fertility information? No Does patient need any prescription refills? No Does patient have an advanced directive in place? No documented in this encounter [facility] 05-13-2024 History of Present illness Narrative Images from the original note were not included. [facility] DEPARTMENT OF HEMATOLOGY AND MEDICAL ONCOLOGY DIAGNOSIS: B-cell NHL REASON FOR VISIT: Follow up DATE OF VISIT: May 13, 2024 HISTORY OF PRESENT ILLNESS: 2001: Diagnosed [...] The pathology was read as DLBCL at [facility]. Apr 2023: PET/CT with FDG avid lymphadenopathy [...] Dec 2023: Excisional LN biopsy with DLBCL Jan 2024: Repeat PET/CT 01/30/24 with progression of disease above and below diaphragm March 2024: Completed XRT to bulkiest area of disease (2000 cGy to right pelvis and inguinal) Apr 2024: Admitted for CAR T-cell therapy. [facility] infused on 04/06. He was dsicharged on 04/14 and as he was driving home developed aphasia. Episode was brief but was admitted through ED for suspected ICANS. Started dex and no recurrence of symptoms. Keppra was stopped due to severe agitation. Discharged robert on dex taper. INTERVAL HISTORY: Katia Shaikh presents for one month post CAR T-cell follow up. He is doing fine. He denies all symptoms. No fevers, drenching night sweats, unintentional weight loss. No enlarged lymph nodes. No episodes of aphasia. PAST MEDICAL HISTORY: DLBCL arising from [place] Hypothyroidism SOCIAL HISTORY: Lives in [place], [place] to Jennifer who is present today Retired from [employer] Likes car racing with his son Previous smoker Very active MEDICATIONS: Reviewed and updated in [employer]. PHYSICAL EXAM: VS: BP 135/72 Pulse 72 Temp 36.5 C (97.7 F) (Oral) Resp 18 Wt 81.9 kg (180 lb 8.9 oz) SpO2 99% BMI 25.28 kg/m ECO- Fully active, able to carry on all pre-disease performance w/o restriction. GENERAL: Awake, alert, no acute distress PYSCH: Alert and oriented. HEENT: EOMI. Anicteric sclerae. PERRL. Moist mucous membranes without lesions. Neck supple. LYMPH NODES: There is no cervical, axillary, supraclavicular or inguinal lymphadenopathy. HEART: Regular rate and rhythm, no murmurs, rubs, or gallops. LUNGS: Clear to auscultation bilaterally, no wheezes or crackles. ABDOMEN: +BS, Soft, nondistended, nontender. No hepatosplenomegaly MSK: Grossly intact ROM. EXTREMITIES: No edema NEURO: CN II-XII grossly intact, normal gait. SKIN: No rashes or other lesions. DATA REVIEWED: CBC Diff WBC (k/uL) Date Value 05/13/2024 1.52 (L) RBC (m/uL) Date Value 05/13/2024 3.88 (L) Hemoglobin (g/dL) Date Value 05/13/2024 12.9 (L) Hematocrit (%) Date Value 05/13/2024 36.9 (L) MCV (fL) Date Value 05/13/2024 95.1 MCH (pg) Date Value 05/13/2024 33.2 MCHC (g/dL) Date Value 05/13/2024 35.0 RDW-CV (%) Date Value 05/13/2024 19.9 (H) Platelet Count (k/uL) Date Value 05/13/2024 107 (L) MPV (fL) Date Value 05/13/2024 9.7 Neutrophils % (%) Date Value 05/13/2024 59.9 Lymphocytes % (%) Date Value 05/13/2024 13.8 Monocytes % (%) Date Value 05/13/2024 20.4 Eosinophils % (%) Date Value 05/13/2024 3.3 Basophils % (%) Date Value 05/13/2024 1.3 Abs Neut (k/uL) Date Value 05/13/2024 0.91 (L) Abs [place] (k/uL) Date Value 05/13/2024 0.31 Abs Eosin (k/uL) Date Value 05/13/2024 0.05 Abs Baso (k/uL) Date Value 05/13/2024 <0.03 CMP Glucose (mg/dL) Date Value 05/13/2024 99 BUN (mg/dL) Date Value 05/13/2024 16 Creatinine (mg/dL) Date Value 05/13/2024 1.01 Sodium (mmol/L) Date Value 05/13/2024 141 Potassium (mmol/L) Date Value 05/13/2024 4.6 Chloride (mmol/L) Date Value 05/13/2024 106 CO2 (mmol/L) Date Value 05/13/2024 24 Protein, Total (g/dL) Date Value 05/13/2024 6.8 Albumin (g/dL) Date Value 05/13/2024 4.6 Calcium, Total (mg/dL) Date Value 05/13/2024 9.6 Alkaline Phosphatase (U/L) Date Value 05/13/2024 118 (H) Bilirubin, Total (mg/dL) Date Value 05/13/2024 0.5 AST (U/L) Date Value 05/13/2024 27 ALT (U/L) Date Value 05/13/2024 40 LDH LD Date Value Ref Range Status 05/13/2024 289 (H) 135 - 225 U/L Final Comment: Hemolysis present. The origin of the hemolysis, in vitro versus an in vivo hemolytic process, cannot be distinguished via this assay alone. In vitro hemolysis may lead to non-physiological (spurious) elevation in lactate dehydrogenase (LDH) results. The result should be interpreted in context of the clinical setting and other test results. Suggest reorder as clinically indicated. Latest Ref Rng 05/13/2024 Phosphorus 2.7 - 4.8 mg/dL 4.1 Magnesium 1.7 - 2.3 mg/dL 2.1 Ferritin 30.3 - 565.7 ng/mL 584.0 (H) CRP <0.9 mg/dL <0.3 Latest Ref Rng 05/13/2024 CMV DNA Not Detected Not detected Latest Ref Rng 05/13/2024 CD3+ T Cell % 60 - 89 % 49 (L) CD3+ T Cell # 958 - 2,388 cells/uL 134 (L) CD3+CD4+ T Cell % 34 - 61 % 13 (L) CD3+CD4+ T Cell # 533 - 1,674 cells/uL 35 (L) CD3+CD8+ T Cell % 10 - 41 % 37 CD3+CD8+ T Cell # 175 - 958 cells/uL 100 (L) CD3-CD19+ B Cell % 5 - 22 % 1 (L) CD3-CD19+ B Cell # 75 - 660 cells/uL 2 (L) CD3-CD16+CD56+ NK Cell % 5 - 25 % 47 (H) CD3-CD16+CD56+ NK Cell # 102 - 565 cells/uL 127 CD3+CD4+/CD3+CD8+ Ratio 1.10 - 3.25 0.35 (L) Latest Ref Rng 05/13/2024 IgG 700 - 1,600 mg/dL 821 IgA 70 - 400 mg/dL 27 (L) IgM 40 - 230 mg/dL 9 (L) PET/CT 05/07/24: IMPRESSION: HEAD/NECK: * No FDG avid neoplastic process. CHEST: * No FDG avid neoplastic process. ABDOMEN/PELVIS: * No FDG avid neoplastic process. * Significant interval resolution/improvement in the previously present hypermetabolic abdominal and pelvic lymphadenopathy. Few residual smaller lymph nodes with low-level mild activity. * Hypermetabolic focus in the sigmoid region similar to prior. MUSCULOSKELETAL: * No FDG avid neoplastic process. Deauville criteria score: 2X (hypermetabolic focus in the sigmoid region). ASSESSMENT AND PLAN: Katia Shaikh is a 68 year old man who presents for 1 month post CAR T-cell visit. #Transformed Lymphoma s/p CAR T-cell therapy - Dagnosed with DLBCL arising from [place] in 2001 and was treated with CHOP (+/-R) and XRT. - He developed diffuse/bulky lymphadenopathy last year and incisional biopsy was read as DLBCL at [facility] but when reviewed by [facility] including the hematopathology consensus conference, it was read as FL, grade 3A. His case was presented at [facility] Board and given prior anthracycline and FL read the recommendation was BR x 6 cycles. - His EOT PET/CT in November 2023 showed resolution of lymphadenopathy with the exception of the right inguinal LN which was 4.3 x 3.5 and increased from his interim PET/CT. Excisional LN biopsy shows DLBCL (both locally and here). Repeat PET/CT following biopsy showed POD with new lymphadenopathy - He completed leukapheresis then palliative XRT to bulkiest lesions (inguinal and pelvic LNs). He did have new lymphadenopathy going into CAR T but small tumor burden. - Received axi-cell ([facility] on 04/05) complicated by ICANS. - Doing well today, completely asymptomatic - I personally reviewed PET/CT images and report and shared these results with Katia Shaikh. These show CMR. The x is for uptake in sigmoid colon. - He would like to transfer care back to Dr. Boykin in [place]. I recommend follow up at 2 month nell and then again at 3 months post CAR T-cell therapy with a repeat PET/CT at 3 months. We reminded him that he must wait 8 weeks before kendra. 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 Continue bactrim ppx until CD4 count above 200 x 2 times # Sigmoid colon uptake - Nonspecific uptake in colon - Recommend colonoscopy for further evaluation especially since he has never had screening colonoscopy Niesha Galdamez MD Associate Staff Physician [address] [place] [address] Pager: [phone] documented in this encounter [facility] 05-13-2024 Note [facility] 05-13-2024 Instructions Dylan Porter MD - 05/13/2024 9:24 AM EDT Date of cellular therapy infusion: 04/06/2024 Months from CAR T-cell therapy 6 8 10 12 Approximate month & year 10/2024 Inactivated influenza vaccine every Fall [employer] Prevnar1 Hib2 Tdap3 Twinrix4 Polio6 Prevnar Hib Td7 Twinrix Polio Prevnar Hib Td Polio MenB8 MenACWY9 Pfopoorl06 MenB MenACWY Twinrix Shingrix 1Prevnar = 20-valent conjugated pneumococcal vaccine 2Hib = Haemophilus influenzae conjugate vaccine 3Tdap = tetanus toxoid, diphtheria toxoid & acellular pertussis vaccine 4Twinrix = combined hepatitis B virus and hepatitis A virus vaccines 6Polio = inactivated polio vaccine 7Td = tetanus toxoid & diphtheria toxoid 8MenB = Meningococcal group B vaccine (Bexsero). 9MenACWY = Menactra (MenACWY-D). If concomitant administration with Prevnar, use Menveo (MenACWY-CRM). 10Shingrix = Recombinant Zoster Vaccine. Give if Varicella Zoster antibody is positive and patient is ? 50 years documented in this encounter [facility] 05-13-2024 Note [facility] 05-13-2024 History of Present illness Narrative INFECTIOUS DISEASE BONE MARROW POST TRANSPLANT EVALUATION SERVICE DATE: 05/13/2024 Patient is seen at the request of Dr. Galdamez for my opinion regarding post CAR T-cell care. My final recommendations will be communicated back to the requesting physician by way of shared medial record. Subjective HISTORY OF PRESENT ILLNESS: Mr. Katia Shaikh is a 68 year old gentleman being evaluated for post CAR T-cell infectious disease care. 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 Underwent CAR T-cell therapy 04/06/2024. Feels well now with no fever, chills, headache, confusion, rash, cough. States that he is not willing to receive COVID-19 vaccine but is willing to listen about the others. Date of cellular therapy infusion: 04/06/2024 Infectious Disease Course Significant for: none PAST MEDICAL HISTORY Diagnosis Date Diffuse large B cell lymphoma (HCC) 05/2023 Follicular lymphoma (HCC) GERD (gastroesophageal reflux disease) History of chemotherapy 2001 Diffuse large B cell Lymphoma History of engineered cell therapy infusion 04/06/2024 Protocol: IP CAR T-Cell [facility] Lymphodepleting regimen: flu/cy Date of cellular therapy infusion: 04/06/2024 History of radiation therapy 2001 Diffuse large B cell lymphoma History of thoracentesis Hypothyroidism PAST SURGICAL HISTORY Procedure Laterality Date PAST SURGICAL HISTORY OF Bronchoscopy PAST SURGICAL HISTORY OF Thoracentesis Social History Tobacco Use Smoking status: Former Packs/day: 1.00 Years: 35.00 Additional pack years: 0.00 Total pack years: 35.00 Types: Cigarettes Quit date: 2009 Years since quittin.5 Passive exposure: Past Smokeless tobacco: Never Substance Use Topics Alcohol use: Yes Comment: beer occ Drug use: Never . is here today. FAMILY HISTORY Problem Relation Age of Onset Melanoma Father Cancer Maternal Grandfather Leukemia Paternal Grandfather Pancreatic Cancer Paternal Aunt Renal Cell Cancer Paternal Aunt Allergies As of Date: 05/13/2024 Allergen Noted Reaction CORTICOSTEROIDS (GLUCOCORTICOIDS) 03/30/2024 Contraindication-Medical Surgical ALLOPURINOL 07/08/2023 Rash Fully Assessed 05/13/2024 REVIEW OF SYSTEMS: A complete review of systems was preformed and all others were negative. Objective PHYSICAL EXAMINATION: BP 134/81 Pulse 74 Temp 36.5 C (97.7 F) (Temporal) Wt 80.7 kg (178 lb) SpO2 99% BMI 24.92 kg/m GENERAL APPEARANCE: Patient in no acute distress, well appearing. SKIN: Skin color, texture, turgor normal. No rashes or lesions. HEAD/SINUSES: No significant findings. OROPHARYNX: Lips, mucosa, and tongue normal. Teeth and gums normal. Oropharynx normal. LUNGS: Normal breath sounds or Clear to auscultation HEART: Normal PMI, Regular rate/rhythm, normal heart sounds, and no murmurs. ABDOMEN: Soft, Non-tender, No palpable masses, and Normal bowel sounds EXTREMITIES: No edema or tenderness: NEURO: Awake, alert and oriented x 3, Normal gait, and No involuntary motions. DATA: Diagnostic Tests Reviewed for Today's Visit: Most recent labs LABS: CBC: Lab Results Component Value Date HB 13.1 05/03/2024 HCT 39.0 05/03/2024 WBC 1.64 05/03/2024 AutoDiff: Lab Results Component Value Date PLT 82 05/03/2024 NEUTP 60.2 05/03/2024 NEUTP 04/13/2024 Comment: Too Few Cells To Do Differential. ABSNEUT 0.99 05/03/2024 ABSNEUT 04/13/2024 Comment: Too Few Cells To Do Differential. LYMPHP 19.9 05/03/2024 LYMPHP 04/13/2024 Comment: Too Few Cells To Do Differential. ABSLYMPH 0.33 05/03/2024 ABSLYMPH 04/13/2024 Comment: Too Few Cells To Do Differential. ABSMONO 0.28 05/03/2024 ABSMONO 04/13/2024 Comment: Too Few Cells To Do Differential. EODINP 04/13/2024 Comment: Too Few Cells To Do Differential. ABSEOSIN 0.03 05/03/2024 ABSEOSIN 04/13/2024 Comment: Too Few Cells To Do Differential. BASOP 1.3 05/03/2024 BASOP 04/13/2024 Comment: Too Few Cells To Do Differential. ABSBASO 0.02 05/03/2024 ABSBASO 04/13/2024 Comment: Too Few Cells To Do Differential. CMP: Lab Results Component Value Date ALB 4.4 05/03/2024 CA 9.8 05/03/2024 TBILI 0.3 05/03/2024 ALKPHOS 146 05/03/2024 AST 23 05/03/2024 GLUC 114 05/03/2024 BUN 16 05/03/2024 CREAT 1.11 05/03/2024 NA 143 05/03/2024 K 4.6 05/03/2024 CHLOR 108 05/03/2024 CO2 24 05/03/2024 ANION 11 05/03/2024 ALT 37 05/03/2024 APTT 31.6 04/06/2024 INR 1.1 04/06/2024 IgG: IgG (mg/dL) Date Value 02/24/2024 1,258 Impression/Recommendations Active GVHD: No Routine vaccinations per guidelines to begin. The presence or absence of GVHD does not alter the following timeline. (Bone Marrow Transplantation 2009, 44, 521-526). Immunization of recipients of both autologous and allogeneic hematopoietic cell transplant recipients should begin approximately 3 - 6 months after transplantion. The following recommendations are based on international guidelines, with some modification for local practices. Biol Blood Marrow Transplant. 2009;15(10):1143. Immunization should not be delayed in the presence of active GVHD, but it may be prudent to measure specific antibody levels after vaccination series completed to determine if seroconversion has occurred and to guide additional booster immunizations. MMR should NOT be given in the presence of GVHD or immunosuppression, or if immunity is already demonstrated by titers. The guidelines recommend to test measles serologies before contemplating MMR, but otherwise do not specifically recommend testing other serologies prior to beginning the following vaccinations. Date of cellular therapy infusion: 04/06/2024 RSV vaccine and flu shot August 2024 Months from CAR T-cell therapy 6 8 10 12 Approximate month & year 10/2024 Inactivated influenza vaccine every Fall Allogeneic Prevnar1 Hib2 Tdap3 Twinrix4 Polio6 Prevnar Hib Td7 Twinrix Polio Prevnar Hib Td Polio MenB8 MenACWY9 Lnaldwun09 MenB MenACWY Twinrix Shingrix 1Prevnar = 20-valent conjugated pneumococcal vaccine 2Hib = Haemophilus influenzae conjugate vaccine 3Tdap = tetanus toxoid, diphtheria toxoid & acellular pertussis vaccine 4Twinrix = combined hepatitis B virus and hepatitis A virus vaccines 6Polio = inactivated polio vaccine 7Td = tetanus toxoid & diphtheria toxoid 8MenB = Meningococcal group B vaccine (Bexsero). 9MenACWY = Menactra (MenACWY-D). If concomitant administration with Prevnar, use Menveo (MenACWY-CRM). 10Shingrix = Recombinant Zoster Vaccine. Give if Varicella Zoster antibody is positive and patient is ? 50 years In addition to the above schedule, if patient is planning to travel out of the [place], we recommend scheduling a visit in an International Travel Clinic several months in advance. There is no limit to the number of volume of vaccines an adult patient may receive in a single visit. Injection sites must be by 1 inch. Adults may receive intramuscular vaccines in the anterolateral aspect of the thigh. After completion of vaccination series, consider monitoring long-term survivors of HSCT for response to vaccinations, and durability of vaccine responses, particularly if vaccinations initiated during GVHD: [ ] Hepatitis A IgG [ ] Hep B Surface Ab [ ] Pneumococcus [ ] tetanus [ ] diphtheria [ ] polio (if given) [ ] measles (if given) Safe Living After Transplant Prevention of infections by direct contact: hand washing, avoid walking barefoot on the beach, use insect repellent in the summer, gloves for gardening, no piercings or tattoos. Prevention of respiratory illness: hand washing, avoid sick contacts, avoid smoke exposure. Avoid construction sites, birds, plant and soil, chicken coops, caves. No cleaning bird or cat litter. Water safety: no well water, no hot tubs, no drinking water from lakes or swimming pools. Food safety: no soft cheeses, no unpasteurized cheeses, no raw eggs, no raw meat, or raw poultry. Peel fruits and vegetables, avoid food sitting outside refrigerator at room temperature for a long time. Animal: wash hands after contact, no contact with sick animals, don't pet stray animals, avoid bites or scratches & report immediately to medical care, no reptiles, rodents, kittens, chicks or ducklings, monkeys. No cleaning pets. Travel: evaluation by travel clinic if foreign travel considered. SIGNATURE: Dylan Porter MD PATIENT NAME: Katia Shaikh DATE: May 13, 2024 TIME: 9:21 AM documented in this encounter [facility] 05-07-2024 Note [facility] 05-07-2024 Note [facility] 05-03-2024 Telephone encounter Note POST CAR-T FOLLOW UP PHONE CALL Spoke to Katia Shaikh on phone on May 03, 2024 at 3:16 PM. The patient reports the following: Fatigue: Yes, per patient is improved this week. N/V: No Appetite: Good Dry Mouth:No Diarrhea:No Liquid intake: Yes, (1 liter or more) Fever(s):No Rash:None Pain:No New Medications:No Hospitalization since BMT discharge: No Dizzy/lightheaded: No Falls:No Monitoring BP: No ICANS: No CRS:No Labs done locally and reviewed. Patient did complain of a scratchy throat. He denied any fevers, chills, runny nose, or cough. Dr. Galdamez notified. Patient and instructed to call with any worsening symptoms. All patient questions were answered. PLAN: Return for scheduled 1 month follow up on 05/[address] Galdamez. Katia Shaikh verbalizes understanding of weekly lab draws and the [facility] call procedure. Danielle Lazaro RN [facility] 05-03-2024 Miscellaneous Notes POST CAR-T FOLLOW UP PHONE CALL Spoke to Katia Shaikh on phone on May 03, 2024 at 3:16 PM. The patient reports the following: Fatigue: Yes, per patient is improved this week. N/V: No Appetite: Good Dry Mouth:No Diarrhea:No Liquid intake: Yes, (1 liter or more) Fever(s):No Rash:None Pain:No New Medications:No Hospitalization since BMT discharge: No Dizzy/lightheaded: No Falls:No Monitoring BP: No ICANS: No CRS:No Labs done locally and reviewed. Patient did complain of a scratchy throat. He denied any fevers, chills, runny nose, or cough. Dr. Galdamez notified. Patient and instructed to call with any worsening symptoms. All patient questions were answered. PLAN: Return for scheduled 1 month follow up on 05/[address] Galdamez. Katia Shaikh verbalizes understanding of weekly lab draws and the [facility] call procedure. Danielle Lazaro RN documented in this encounter [facility] 04-30-2024 Telephone encounter Note 1340: Spoke with Jennifer, patient's spouse about lab work needed. Patient's spouse was not aware of lab work needed weekly. RN advised that standing lab work is in the system and they can go to the local [facility] to have the labs drawn. RN advised that they will need them the following week as well. She verbalized understanding. Danielle Lazaro RN [facility] 04-30-2024 Miscellaneous Notes 1340: Spoke with Jennifer, patient's spouse about lab work needed. Patient's spouse was not aware of lab work needed weekly. RN advised that standing lab work is in the system and they can go to the local [facility] to have the labs drawn. RN advised that they will need them the following week as well. She verbalized understanding. Danielle Lazaro RN documented in this encounter [facility] 04-23-2024 Instructions Nabila Chery APRN.MIRACLE - 04/23/2024 9:14 AM EDT - labs weekly locally until you see Dr. Galdamez for your 30-day follow-up visit. Obtain blood work earlier in the week (Friday or Friday) each week. You do not need to get blood work the week you are here for your 30-day follow-up (we will obtain blood work at our lab here that day). documented in this encounter [facility] 04-23-2024 History of Present illness Narrative Blood and Marrow Transplant Program Patient: Katia Shaikh : 1955 Date of service: April 23, 2024 CC: Post Cellular Therapy appointment Discharge appointment: yes Date of discharge: 04/14/24, readmitted same day from ER and discharged home again on 04/17/24 Caregiver present: yes, Treating physician: Niesha Galdamez M.D. HPI: Katia Shaikh is here for discharge follow up after cellular therapy for DLBCL. He and his notes some irritability but this has improved. Patient reports intermittent mild chronic heartburn. This is unchanged from baseline. He takes protonix 40 mg daily. His appetite is improving. He is drinking adequately. Reports having 1 soft BM per day. Patient denies nausea, vomiting, diarrhea, constipation, skin rash, shortness of breath, cough, fever, headache, vision changes, memory changes or confusion, seizures or seizure-like activity, changes in gait, vision changes, mouth sores or pain. ROS: GENERAL: No fever or chills. HEENT: No headache, nose bleed, mouth pain, or sore throat. RESPIRATORY: No cough or shortness of breath. CARDIOVASCULAR: No chest pain, palpitations, or leg swelling. GI: Eating, drinking, and taking pills adequately; no difficulty swallowing, abdominal discomfort, blood in stools, black stools, or diarrhea. : No discomfort with voiding or gross blood in urine. MUSCULOSKELETAL: No pain. SKIN: No rash or itching. NEURO: some residual irritability that has improved. Complete 10 point ROS was otherwise negative. Car T-cell Therapy Summary: Day: +17 Protocol: IP CAR T-Cell Yescarta Lymphodepleting regimen: flu/cy Date of cellular therapy infusion: 04/06/2024 Medications: dexAMETHasone (DECADRON) 2 mg tablet^Take 3 tablets by mouth daily with breakfast for 2 days, THEN 2 tablets daily with breakfast for 4 days, THEN 1 tablet daily with breakfast for 4 days. Patient should start on April 18, 2024.^Disp: 18 tablet^Rfl: 0 acyclovir (ZOVIRAX) 400 mg tablet^Take 1 tablet by mouth every 12 hours.^Disp: 60 tablet^Rfl: [address] (PROTONIX) 40 mg tablet^Take 1 tablet by mouth once daily.^Disp: 30 tablet^Rfl: 3 sulfamethoxazole-trimethoprim (BACTRIM DS) 800-160 mg per tablet^Take 1 tablet by mouth every Friday, Friday, and Friday. Patient should start on April 16, 2024.^Disp: 12 tablet^Rfl: 5 collagen, hydrolysate, bovine, (COLLAGEN, HYDR, BOVINE,, BULK,) 100 % powd^Take 1 Dose by mouth once daily.^Disp: ^Rfl: ondansetron (ZOFRAN) 8 mg tablet^Take 1 tablet by mouth every 8 hours as needed for nausea/vomiting.^Disp: 90 tablet^Rfl: 1 prochlorperazine (COMPAZINE) 10 mg tablet^Take 1 tablet by mouth every 6 hours as needed.^Disp: 100 tablet^Rfl: 1 levothyroxine (SYNTHROID) 125 mcg tablet^Take 1 tablet by mouth every afternoon.^Disp: ^Rfl: MULTIVITAMIN ORAL^Take 1 Dose by mouth once daily.^Disp: ^Rfl: KRILL OIL ORAL^Take 1 Dose by mouth once daily.^Disp: ^Rfl: Allergies: ALLERGIES Allergen Reactions Corticosteroids (Gl* Contraindication-Medical Surgical Corticosteroids MAY NOT be used as an antiemetic. Corticosteroids and other immunosuppressive drugs should be avoided for 3 months after CAR T-Cell administration, unless used to manage CAR T-Cell related toxicities. Must be approved by BMT staff physician. End date 07/07/24 Allopurinol Rash PAST MEDICAL HISTORY Diagnosis Date Diffuse large B cell lymphoma (HCC) 05/2023 Follicular lymphoma (HCC) GERD (gastroesophageal reflux disease) History of chemotherapy 2001 Diffuse large B cell Lymphoma History of engineered cell therapy infusion 04/06/2024 Protocol: IP CAR T-Cell Yescarta Lymphodepleting regimen: flu/cy Date of cellular therapy infusion: 04/06/2024 History of radiation therapy 2001 Diffuse large B cell lymphoma History of thoracentesis Hypothyroidism ECOG PERFORMANCE STATUS: 1- Restricted in physically strenuous activity. Carries out light duty. Karnofsky Performance Status Scale: 80 - Normal activity with effort, some signs or symptoms of disease. PE: VS: Temp 36.5 C, Wt 79.1 kg (174 lb 6.1 oz), RR 18, SPO2 100% RA; orthos: sitting: BP 106/70 HR 72, standing: BP 105/70 HR 82 General appearance: Well appearing, alert, in no acute distress, well-hydrated, well nourished. Skin: Skin color, texture, turgor normal, no suspicious rashes or lesions Head: Normocephalic, no masses, lesions, tenderness or abnormalities Eyes: Anicteric sclera. Ears: External ears normal. Nose/Sinuses: Nares normal Oropharynx: Lips, mucosa, and tongue normal, teeth and gums normal, oropharynx normal Neck: Supple, no adenopathy Lungs: Lungs clear to auscultation. No wheezing, rhonchi, rales Heart: RRR without murmur, gallop, or rubs. Abdomen: Abdomen soft, non-tender. Bowel sounds normal. No masses, organomegaly Extremities: No deformities, edema, skin discoloration, clubbing or cyanosis. Good capillary refill. Peripheral pulses: Capillary refill <2secs, strong peripheral pulses Neuro: Gait normal. Previously Documented CARTOX Score: 10 = No impairment ASTCT Consensus Grading, Anny Hinton et al, 2018): ICE SCORE 1. Orientation to Year 1-YES 2. Orientation to Month 1-YES 3. Orientation to City 1-YES 4. Able to Identify Hospital 1-YES 5. Follows Simple Command, eg Show Me Two Fingers 1-YES 6. Name 1st Object Visible Within Hospital Room; eg Clock 1-YES 7. Name 2nd Object Visible Within Hospital Room; eg Pen 1-YES 8. Name 3rd Object Visible Within Hospital Room; eg Button 1-YES 9. Write a Standard Sentence; for example Our national bird is the bald paimiut. 1-YES 10. Count backwards from 100 by 10's 1-YES NEUROLOGICAL ASSESSMENT SCORE: 10 = No impairment CRS Grading No CRS ICANS Grading Grade 0 (No Abnormality) CRS & ICANS Scoring Reference Document Labs: Latest Ref [facility] 04/23/2024 Protein, Total 6.3 - 8.0 g/dL 6.5 Albumin 3.9 - 4.9 g/dL 4.1 Calcium 8.5 - 10.2 mg/dL 9.1 Bilirubin, Total 0.2 - 1.3 mg/dL 0.4 Alkaline Phosphatase 38 - 113 U/L 137 (H) AST 14 - 40 U/L 16 ALT 10 - 54 U/L 35 Glucose 74 - 99 mg/dL 100 (H) BUN 9 - 24 mg/dL 22 Creatinine 0.73 - 1.22 mg/dL 0.89 Sodium 136 - 144 mmol/L 141 Potassium 3.7 - 5.1 mmol/L 4.3 Chloride 98 - 107 mmol/L 105 CO2 22 - 30 mmol/L 25 Anion Gap 8 - 15 mmol/L 11 eGFR >=60 mL/min/1.73m 94 WBC 3.70 - 11.00 k/uL 1.94 (L) (P) RBC 4.20 - 6.00 m/uL 3.68 (L) (P) Hemoglobin 13.0 - 17.0 g/dL 11.7 (L) (P) Hematocrit 39.0 - 51.0 % 33.5 (L) (P) MCV 80.0 - 100.0 fL 91.0 (P) MCH 26.0 - 34.0 pg 31.8 (P) MCHC 30.5 - 36.0 g/dL 34.9 (P) RDW-CV 11.5 - 15.0 % 17.1 (H) (P) Platelet Count 150 - 400 k/uL 77 (L) (P) MPV 9.0 - 12.7 fL 10.6 (P) Magnesium 1.7 - 2.3 mg/dL 2.1 LD 135 - 225 U/L 150 CRP <0.9 mg/dL <0.3 Ferritin 30.3 - 565.7 ng/mL 589.0 (H) Legend: (H) High (L) Low (P) Preliminary Assessment/Plan: History of Engineered Cellular Therapy DLBCL - counts improving post car T-cell therapy - continue to monitor labs once per week or sooner as needed - reviewed with patient infection and bleeding precautions. - monitor BP and temp daily, notify team if temp > or = 100.4 - experienced CRS (fever, hypotension, hypoxia) while inpatient, received 4 doses of Toci (administered on 04/08, 04/10, 04/11 and 04/12/24 - re-admitted on 04/14 (same day as discharged initially) for aphasia. Started on treatment for possible ICANS with IV dexamethasone. Ppx Keppra discontinued d/t concern for worsening irritation and mood lability. Discharged home on the following dex taper: Starting 04/18/24, take 6 mg x2 doses, followed by 4 mg daily x4 doses, 2 mg daily x4 doses, then stop. - LD and CRP have normalized. Ferritin mildly elevated. no new or reoccurring s/s of ICANS or CRS. Irritability continues to improve per patient and his . Continue dex taper as ordered. Advised to call if any new or worsening issues. Pancytopenia due to antineoplastic chemotherapy - counts improving post chemotherapy - labs weekly, support with red blood cells, platelets At risk for infection due to immunosuppression/immunodeficiency - increased risk of viral reactivation for cellular therapy - continue acyclovir 400mg BID for 6 months - Bactrim - IVIG as needed At risk for electrolyte and fluid disorder - Estimated Creatinine Clearance: 85.4 mL/min (based on SCr of 0.89 mg/dL). - encouraged patient to drink 2 liter caffeine free fluids daily - continue to monitor and supplement as needed I spent a total of 40 minutes on the date of the service which included preparing to see the patient, [id number] patient care, completing clinical documentation, obtaining and/or reviewing separately obtained history, performing a medically appropriate examination, counseling and educating the patient/family/caregiver, ordering medications, tests, or procedures, communicating with other HCPs (not separately reported), independently interpreting results (not separately reported), communicating results to the patient/family/caregiver, and care coordination (not separately reported). An opportunity for patient to ask questions was provided. Understanding of the information given in this visit was stated, and patient is in agreement with the recommendations as explained here. Follow up: As scheduled or sooner as needed Nabila Chery APRN.MIRACLE documented in this encounter [facility] 04-23-2024 Note [facility] 04-23-2024 Nurse Note Additional intake questions: Has the patient had fever, nausea, vomiting, diarrhea, constipation, fatigue for > 1 week? No Does the patient have a decreased appetite? No Does patient want to see a Sales Office Assistant? No (yes to any of above refer patient to schedulers for dietitian appointment) ) Does patient have any new or increased numbness or tingling of extremities? No Is patient interested in fertility information? No Does patient need any prescription refills? No Does patient have an advanced directive in place? No, Patient refused referral to Social Work or Resource Center Electronically Signed By: Kaden Brizuela LPN [facility] 04-23-2024 Nurse Note Additional intake questions: Has the patient had fever, nausea, vomiting, diarrhea, constipation, fatigue for > 1 week? No Does the patient have a decreased appetite? No Does patient want to see a Sales Office Assistant? No (yes to any of above refer patient to schedulers for dietitian appointment) ) Does patient have any new or increased numbness or tingling of extremities? No Is patient interested in fertility information? No Does patient need any prescription refills? No Does patient have an advanced directive in place? No, Patient refused referral to Social Work or Resource Center Electronically Signed By: Kaden Brizuela LPN documented in this encounter [facility] 04-17-2024 Note [facility] 04-16-2024 Note [facility] 04-16-2024 Note [facility] 04-15-2024 Note [facility] 04-15-2024 Note [facility] 04-14-2024 Telephone encounter Note [facility] Hematology/Oncology Fellow After Hours Phone Call Heme/onc Diagnosis: DLBCL Attending Physician: Dr Galdamez Recent Treatment: Yescarta, currently day +8 Patient identified by name and date of . Received call from his Jennifer. They were driving home after d/c today and patient developed aphasia and was disoriented to place and time. Suspicious for ICANS. CT head was negative today. Recommended coming back to the ED. On arrival to the ED please start IV dexamethasone 10 mg q6h. Patient will need to be admitted to BMT service for monitoring. Case discussed with BMT attending Dr Galdamez and signout given to ED attending Dr Lincoln Esquivel MD Hematology/Oncology Fellow PGY-4 04/14/2024 6:41 PM [facility] Work Phone: 04-14-2024 Miscellaneous Notes [facility] Hematology/Oncology Fellow After Hours Phone Call Heme/onc Diagnosis: DLBCL Attending Physician: Dr Galdamez Recent Treatment: Yescarta, currently day +8 Patient identified by name and date of . Received call from his Jennifer. They were driving home after d/c today and patient developed aphasia and was disoriented to place and time. Suspicious for ICANS. CT head was negative today. Recommended coming back to the ED. On arrival to the ED please start IV dexamethasone 10 mg q6h. Patient will need to be admitted to BMT service for monitoring. Case discussed with BMT attending Dr Galdamez and signout given to ED attending Dr Lincoln Esquivel MD Hematology/Oncology Fellow PGY-4 04/14/2024 6:41 PM documented in this encounter [facility] 04-14-2024 Note [facility] 04-14-2024 Note [facility] 04-14-2024 Note [facility] 04-13-2024 Note [facility] 04-12-2024 Note [facility] 04-12-2024 Note [facility] 04-11-2024 Note [facility] 04-11-2024 Note [facility] 04-11-2024 Note HNO ID: [id number] Author: NOTE, INTERFACE, ? Service: ? Author Type: ? Type: Progress Notes Filed: 04/11/2024 02:38 Note Text: Epic Scheduled Downtime: 04/11/2024 1:00:00 AM to 04/11/2024 2:26:00 AM [facility] 04-10-2024 Note [facility] 04-10-2024 Note [facility] 04-10-2024 Note HNO ID: [id number] Author: NOTE, INTERFACE, ? Service: ? Author Type: ? Type: Progress Notes Filed: 04/10/2024 03:23 Note Text: Epic Scheduled Downtime: 04/10/2024 1:00:00 AM to 04/10/2024 3:02:00 AM [facility] 04-09-2024 Note [facility] 04-09-2024 Note [facility] 04-08-2024 Note [facility] 04-08-2024 Note [facility] 04-07-2024 Note [facility] 04-06-2024 Note [facility] 04-01-2024 History of Present illness Narrative Images from the original note were not included. [facility] DEPARTMENT OF HEMATOLOGY AND MEDICAL ONCOLOGY DIAGNOSIS: B-cell NHL REASON FOR VISIT: Follow up DATE OF VISIT: April 01, 2024 HISTORY OF PRESENT ILLNESS: 2001: Diagnosed [...] The pathology was read as DLBCL at [facility]. Apr 2023: PET/CT with FDG avid lymphadenopathy [...] Dec 2023: Excisional LN biopsy with DLBCL Jan 2024: Repeat PET/CT 01/30/24 with progression of disease above and below diaphragm March 2024: Completed XRT to bulkiest area of disease (2000 cGy to right pelvis and inguinal) INTERVAL HISTORY: Katia Shaikh presents for follow up. He continues to do well. He did have some mild fatigue during radiation. No skin changes. He noticed it shrink with the radiation but is not resolved. No fevers, drenching night sweats, unintentional weight loss. PAST MEDICAL HISTORY: DLBCL arising from [place] Hypothyroidism SOCIAL HISTORY: Lives in [place], [place] to Jennifer who is present today Retired from [employer] car [employer] with his son Previous smoker Very active MEDICATIONS: Reviewed and updated in Epic. PHYSICAL EXAM: VS: BP 126/67 Pulse 73 Temp 36.4 C (97.6 F) (Temporal) Resp 18 Ht 176.6 cm (5' 9.53 ) Wt 83.4 kg (183 lb 13.8 oz) SpO2 97% BMI 26.74 kg/m Karnofsky Performance Status Scale: 100 - Normal, no complaints, no evidence of disease. ECO- Fully active, able to carry on all pre-disease performance w/o restriction. GENERAL: Awake, alert, no acute distress PYSCH: Alert and oriented. HEENT: EOMI. Anicteric sclerae. PERRL. Moist mucous membranes without lesions. Neck supple. LYMPH NODES: There is no cervical, axillary, supraclavicular lymphadenopathy. Well healed incision right groin still with palpable lymphadenopathy HEART: Regular rate and rhythm, no murmurs, [...] Neut (k/uL) Date Value 03/09/2024 5.36 Abs [place] (k/uL) Date Value 03/09/2024 1.06 (H) Abs [...] [facility]DH LD Date Value Ref Range Status 03/09/2024 214 135 - 225 U/L Final PET/CT Skull-Thigh 03/25/2024 IMPRESSION: HEAD/NECK: * No FDG avid neoplastic process. CHEST: * A left upper lobe pulmonary nodule has increased markedly in size and FDG avidity, suspicious for malignancy/lymphomatous involvement. * New intensely FDG avid right retrocrural nodes, suspicious for lymphomatous involvement. * Mild bilateral hilar uptake is similar to prior, likely benign/reactive. ABDOMEN/PELVIS: * Although right thigh, inguinal and pelvic adenopathy has overall decreased in size and/or FDG avidity status post radiation therapy, there is new extensive FDG avid retroperitoneal and common iliac adenopathy. * Focal uptake within the sigmoid colon has increased slightly in intensity, raising suspicion for malignant involvement, either lymphomatous or primary colonic. Continued close attention on follow-up versus correlation with up-to-date colonoscopy recommended. * Mild, nonspecific asymmetric activity in the left posterior peripheral zone of the prostate gland is not substantially changed. MUSCULOSKELETAL: * No FDG avid neoplastic process. [...] incisional biopsy was read as DLBCL at [facility] but when reviewed by [facility] including the [...] biopsy shows DLBCL (both locally and here). Repeat PET/CT following biopsy sows POD. He had T-cells collected and then palliative RT to bulkiest disease in inguinal/pelvic regions.He now presents to start LDC. We reviewed new PET/CT and LDC and admission for axi-cell next week. Labs and clinical exam satisfactory for treatment today, proceed with LDC. He has zofran and compazine at home for potential nausea and will start febuxostat for TLS ppx (rash to allopurinol). RTC with me following DC. Niesha Galdamez MD Associate Staff Physician [facility] [address] [place] [place] [address] Pager: [phone] Date: April 01, 2024 documented in this encounter [facility] 04-01-2024 Note [facility] 04-01-2024 Nurse Note Additional intake questions: Has the patient had fever, nausea, vomiting, diarrhea, constipation, fatigue for > 1 week? No Does the patient have a decreased appetite? No Does patient want to see a Sales Office Assistant? No (yes to any of above refer patient to schedulers for dietitian appointment) ) Does patient have any new or increased numbness or tingling of extremities? No Is patient interested in fertility information? No Does patient need any prescription refills? No Does patient have an advanced directive in place? No [facility] 04-01-2024 Nurse Note Additional intake questions: Has the patient had fever, nausea, vomiting, diarrhea, constipation, fatigue for > 1 week? No Does the patient have a decreased appetite? No Does patient want to see a Sales Office Assistant? No (yes to any of above refer patient to schedulers for dietitian appointment) ) Does patient have any new or increased numbness or tingling of extremities? No Is patient interested in fertility information? No Does patient need any prescription refills? No Does patient have an advanced directive in place? No documented in this encounter [facility] 03-26-2024 History of Present illness Narrative Images from the original note were not included. [facility] Department of Pharmacy Pharmacy Office Visit Chimeric Antigen Receptor (CAR) T-Cell Pre-Admission Assessment Patient name: Katia Shaikh BMT Attending MD: Dr. Galdamez Diagnosis: DLBCL Date of service: 03/26/24 Does this patient have an active consult agreement?: No Katia Shaikh is a 68 year old male patient diagnosed with DLBCL and chart review is being completed today in preparation for upcoming CAR T-Cell therapy. Anticipated Lymphodepleting Regimen: Fludarabine and cyclophosphamide Anticipated CAR T-Cell Product: axicabtagene ciloleucel (Yescarta ) Medication Assessment and Plan: Drug Interactions: Clinically significant interactions with chemotherapy, immunosuppression, or other standard of care treatment plan medications anticipated: No. There are no pertinent drug interactions identified. Allergies: Patient confirmed allergies documented in Epic are correct Chemotherapy dose adjustment considerations: CrCl ~75 ml/min - will be re-assessed within 72 hours of LD Additional Information: Patient has reported allergy to allopurinol (rash) - will use febuxostat as an alternative for TLS prophylaxis Was medication reconciliation performed?: No Was medication education provided?: No Current Medication List: Current Outpatient Medications Medication Sig collagen, hydrolysate, [...] (BD POSIFLUSH) 10 mL INTRAVENOUS DIRECTED PRN Laboratory Data WBC (k/uL) Date Value 03/09/2024 7.43 03/08/2024 8.04 02/24/2024 6.02 12/25/2023 5.59 11/18/2023 3.36 Abs Neut (k/uL) Date Value 03/09/2024 5.36 03/08/2024 5.86 02/24/2024 4.39 12/25/2023 3.66 11/18/2023 2.19 Hemoglobin (g/dL) Date Value 03/09/2024 13.2 03/08/2024 13.8 02/24/2024 13.3 12/25/2023 14.1 11/18/2023 14.6 Platelet Count (k/uL) Date Value 03/09/2024 219 03/08/2024 173 02/24/2024 243 12/25/2023 216 11/18/2023 184 Glucose (mg/dL) Date Value 03/09/2024 105 03/08/2024 93 02/24/2024 100 12/25/2023 96 11/18/2023 94 Creatinine (mg/dL) Date Value 03/09/2024 0.98 03/08/2024 0.96 02/24/2024 0.94 12/25/2023 1.10 11/18/2023 0.96 Calcium, Total (mg/dL) Date Value 03/09/2024 9.4 03/08/2024 9.9 02/24/2024 9.6 12/25/2023 10.2 11/18/2023 9.8 Bilirubin, Total (mg/dL) Date Value 03/09/2024 0.2 03/08/2024 0.2 02/24/2024 0.2 12/25/2023 0.3 11/18/2023 0.2 Bilirubin, Conjugated (mg/dL) Date Value 03/09/2024 <0.2 No results found for: MPROTCONCENT , MSPK24 No results found for: KAPFSER , LAMBDFSER , MPAIGG , MPAIGA , MPAIGM No results found for: INTP CBC with diff: WBC 7.43 03/09/2024 RBC 4.30 03/09/2024 Hemoglobin 13.2 03/09/2024 Hematocrit 38.7 03/09/2024 MCV 90.0 03/09/2024 MCH 30.7 03/09/2024 MCHC 34.1 03/09/2024 RDW-CV 13.0 03/09/2024 Platelet Count 219 03/09/2024 MPV 9.9 03/09/2024 Neutrophils % 72.1 03/09/2024 Lymphocytes % 7.3 03/09/2024 Monocytes % 14.3 03/09/2024 Eosinophils % 5.1 03/09/2024 Basophils % 0.9 03/09/2024 Abs Neut 5.36 03/09/2024 Abs Pas[place] 1.06 03/09/2024 Abs Eosin 0.38 03/09/2024 Abs Baso 0.07 03/09/2024 CMP: Glucose 105 03/09/2024 BUN 15 03/09/2024 Creatinine 0.98 03/09/2024 Sodium 140 03/09/2024 Potassium 4.3 03/09/2024 Chloride 103 03/09/2024 CO2 24 03/09/2024 Protein, Total 7.3 03/09/2024 Albumin 4.1 03/09/2024 Calcium, Total 9.4 03/09/2024 Alkaline Phosphatase 252 03/09/2024 Bilirubin, Total 0.2 03/09/2024 AST 19 03/09/2024 ALT 20 03/09/2024 Medication History Social History Tobacco Use Smoking status: Former Packs/day: 1.00 Years: 35.00 Additional pack years: 0.00 Total pack years: 35.00 Types: Cigarettes Quit date: 2009 Years since quittin.4 Passive exposure: Past Smokeless tobacco: Never Substance Use Topics Alcohol use: Yes Comment: beer occ Drug use: Never ALLERGIES Allergen Reactions Allopurinol Rash Thank you for allowing us to participate in the care of this patient. Priyanka Echols RPh Pager: [phone] March 26, 2024 12:42 PM documented in this encounter [facility] 03-26-2024 Note [facility] 03-25-2024 Note [facility] 03-22-2024 History of Present illness Narrative Radiation Oncology - On Treatment Review (OTR) Note PATIENT NAME: Katia Shaikh PATIENT DIAGNOSIS: Recurrent non-Hodgkin's lymphoma. 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 Recurrence right pelvis and inguinal area this spring with biopsy demonstrating (after [facility] review) follicular grade 3 non-Hodgkin lymphoma COURSE: definitive Current dose: 2000 cGy in 5 fx Planned dose: 2000 cGy in 5 fx SUBJECTIVE: Patient notes last pain. Less swelling below knee. Significant improvement in swelling right groin area. PHYSICAL EXAM: KPS: 100 General Appearance: Alert and oriented. No acute distress. Decreased edema right lower extremity. Significant decrease palpable right inguinal adenopathy. IMAGING/LAB RESULTS: None Treatment chart checked: Yes Patient treatment site reviewed and verified:Yes Port films reviewed and current:Yes Medications started: None ASSESSMENT/PLAN: Patient has had good clinical response with reduction in inguinal adenopathy clinically as well as on ConeBeam CT. he has follow-up for his planned CAR-T cell. Viviana Varela MD documented in this encounter [facility] 03-22-2024 Note [facility] 03-22-2024 History of Present illness Narrative [facility] Radiation Oncology Department RADIATION ONCOLOGY - COMPLETION NOTE PATIENT: KATIA SHAIKH.: 1955 DATES OF TREATMENT: DIAGNOSIS: Follicular lymphoma grade IIIa, lymph nodes of inguinal region and pelvis AREA TREATED: right pelvis/inguinal region DELIVERED DOSE: Area: right pelvis/inguinal 2000cGy in 5fractions, 2Fields, 3D Conformal, 15MV TOTAL: 2000cGy ELAPSED TIME: 6 days. CLINICAL SUMMARY: The patient had rapid improvement in lower extremity swelling and pain. Notable soft tissue regression. He has follow up for planned CAR-T cell treatment. Staff Physician Mario Alberto Varela M.D. / KG 44:01 PM Electronically Signed cc: Dr.Murphy Dr. Emelia Gonzalez ([facility] [place]), Dr. Niesha Galdamez documented in this encounter [facility] 03-22-2024 Note [facility] 03-19-2024 Note [facility] 03-19-2024 History of Present illness Narrative Patient appears on the [facility] First Time Radiation Treatment Report. Patient was assessed by FREDA Quiroz on 02/24/24. CLARITA Sanchez Goals of Care Advance Directives are not on file. SIGNATURE: CURTIS Sanchez PATIENT NAME: Katia Shaikh DATE: March 19, 2024 TIME: 3:59 PM PAGER/CONTACT #: documented in this encounter [facility] 03-16-2024 Note [facility] 03-16-2024 History of Present illness Narrative Radiation Oncology - On Treatment Review (OTR) Note PATIENT NAME: Katia Shaikh PATIENT DIAGNOSIS: Recurrent non-Hodgkin's lymphoma. 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 Recurrence right pelvis and inguinal area this spring with biopsy demonstrating (after [facility] review) follicular grade 3 non-Hodgkin lymphoma COURSE: definitive Current dose: 400 cGy in 1 fx Planned dose: 2000 cGy in 5 fx SUBJECTIVE: Patient here to start. No new issues. Still with right leg swelling. Some pain/discomfort with this. No fever. PHYSICAL EXAM: KPS: 100 General Appearance: Alert and oriented. No acute distress. IMAGING/LAB RESULTS: None Treatment chart checked: Yes Patient treatment site reviewed and verified:Yes Port films reviewed and current:Yes Medications started: None ASSESSMENT/PLAN: Patient starting radiation today. Plan of care and expectations again reviewed. Plan, MU calculations and conformal plan reviewed. Initial imaging including verification simulation with cone beam CT kvkv stereoscopic setup and then subsequent portal davila reviewed. Custom bolus placed anterior inguinal region. First treatment given. Continue radiation as prescribed. Viviana Varela MD documented in this encounter [facility] 03-15-2024 Note [facility] 03-15-2024 History of Present illness Narrative Radiation Oncology - New Patient/Consult Note PATIENT NAME: Katia Shaikh PATIENT REQUESTING PROVIDER: Dr. Niesha Galdamez Additional physicians: Dr. Boykin DIAGNOSIS: Recurrent non-Hodgkin's lymphoma. 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 Recurrence right pelvis and inguinal area this spring with biopsy demonstrating (after [facility] review) follicular grade 3 non-Hodgkin lymphoma HPI: 68 year old male who presents with above diagnosis, for an opinion regarding the role of radiation therapy in the management of the patient's disease. Final recommendations will be communicated back to the requesting physician by way of the shared medical record, or letter to requesting physician via US mail. Patient has a history of non-Hodgkin's lymphoma with prior systemic treatment including involved field thoracic radiation in 2001. Patient however presented in March 2023 with bilateral inguinal adenopathy right greater than left. Patient also with some pain and night sweats. On staging found to have disease of both sides of the diaphragm. He underwent biopsy demonstrating diffuse large B-cell lymphoma however on review at [facility] felt to be a follicular grade 3 nontoxic follow-up. He underwent evaluation including referral to Dr. Castaneda, [facility]. Bendamustine plus Rituxan recommended. Patient started this June 2023 with rapid initial resolution of adenopathy and symptoms. He completed 4 cycles on PET scan showed resolution of overall blood in area within the right inguinal region. After his 6 cycle of BR PET/CT demonstrated increased right inguinal adenopathy no other disease. Lymph node in December of this year, pathology demonstrating aggressive large B-cell lymphoma favoring germinal center type. He underwent repeat staging with PET scan as noted below. PET/CT 01/30/2024: IMPRESSION: HEAD/NECK: * No FDG avid neoplastic [...] MUSCULOSKELETAL: * No FDG avid neoplastic process. Patient states that his main complaint has been swelling, no significant pain. He denies any bowel changes. No fevers night sweats or pruritus. He however has noted increasing swelling and developed increasing leg swelling over the last 1 to 2 weeks. He was evaluated in the emergency room for his right lower extremity swelling over the weekend ultrasound studies negative for DVT. He was given a wrap for symptomatic improvement. He has been evaluated at [facility] with Dr. Castaneda, plan to proceed with CAR-T cell therapy. Given rapidly increasing adenopathy patient is referred for local radiation to help bridge time before CAR-T cell therapy can begin. ALLERGIES Allergen Reactions Allopurinol Rash Current Outpatient [...] collagen vascular disease, or inflammatory bowel disease: Yes 2021 thorax radiation Any implanted or external electric devices? No [...] Types: Cigarettes Quit date: 2009 Years since quittin.3 Passive exposure: Past Smokeless tobacco: Never Substance Use Topics Alcohol use: Yes Comment: beer occ Drug use: Never COMPLETE REVIEW OF SYSTEMS: GENERAL: no recent change in weight, admits to fatigue NECK: denies swelling or pain in neck RESPIRATORY: no cough, no wheezing or shortness of breath CARDIOVASCULAR: no chest pain, no palpitations GI: normal appetite, tolerating PO well, BMs normal, and no abdominal pain : urination is normal MUSCULOSKELETAL: Right leg swelling improved with wrap, see HPI SKIN: no rash As noted in HPI PHYSICAL EXAM: VS: BP 116/81 Pulse 79 Temp 36.6 C (97.9 F) Resp 18 Wt 85.9 kg (189 lb 6.4 oz) SpO2 95% BMI 26.49 kg/m Is the patient having any pain? No 0 on a scale of 0 to 10 KPS: 90 General Appearance: Alert and oriented. No acute distress. HEENT: NCAT. Sclera anicteric. PERRL. EOMI. Neck: Normal ROM. No palpable cervical or supraclavicular adenopathy. Abdomen: Soft. Nontender. Nondistended. Musculoskeletal: No edema. Normal ROM in extremities. No bone or spine tenderness. Neuro: Speech fluent. Gait normal. No focal deficits. Skin: Some skin changes mild erythema over area of adenopathy no obvious other skin changes notable no erythema to the remaining right lower extremity Lymphatics: Multiple large palpable areas of adenopathy right groin area to upper medial right thigh Hematologic: No signs of active bleeding. RADIOLOGY/LABORATORY DATA: see HPI ASSESSMENT AND PLAN: Quite some cancer hours from [place] and [facility] morning makes this order so asparagus PSO Jeri a super easy extremity. I get the rest. He is really doing it because he can make a big patch because he read in recurrent non-Hodgkin's lymphoma. 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 Recurrence right pelvis and inguinal area this spring with biopsy demonstrating (after [facility] review) follicular grade 3 non-Hodgkin lymphoma Patient I do feel would benefit from local involved radiation for his aggressive non-Hodgkin's lymphoma. Given clinically he is having worsening local symptoms and fairly rapid progression of disease I do feel a course of radiation will help minimize potential risks related to progressive disease and hopefully help improve his local symptoms prior to starting his CAR-T cell therapy. Will plan a simulation today. Given short time interval and rapid progression recommend a short course/5 fraction course of treatment 2000 cGy in 5 fractions. Signed by: Viviana Varela MD cc: To use this Smartlink, specify the provider ID whose address you want to display, e.g., .PROVADDR[1 (where 1 is the provider ID). Niesha Galdamez [address] [facility] [address] documented in this encounter [facility] 03-15-2024 Nurse Note Pacemaker/Defibrillator? No Previous Cancer(s)? No Previous Radiation? No Lupus/Scleroderma? No On body monitoring device? No Sandra Mayen RN [facility] 03-15-2024 Nurse Note Pacemaker/Defibrillator? No Previous Cancer(s)? No Previous Radiation? No Lupus/Scleroderma? No On body monitoring device? No Sandra Mayen RN documented in this encounter [facility] 03-15-2024 History of Present illness Narrative KATIA SHAIKH [id number] 03/15/2024 [facility] Radiation Oncology Department SIMULATION NOTE DATE OF SIMULATION: 03/15/2024 THERAPIST: Jaqueline Britton MACHINE: ICONIC DIAGNOSIS: Follicular lymphoma grade IIIa, lymph nodes of inguinal region and lower limbC82.35 AREA: PELVIS CONTRAST: None Consent in Epic: Yes PATIENT POSITION: Supine. FIXATION DEVICE: In order to achieve accurate and reproducible treatments, the patient is immobilized with ORFIT AIO. A time-out was conducted and recorded by the therapist. CT scan was completed for target localization and planning. Field arrangement will be determined after plan has been completed. The patient is scheduled for a verification simulation on the treatment machine to ensure proper set-up and field arrangement is correct prior to the first treatment of primary and boost davila if applicable. Patient education will be completed per nursing. Electronically Signed Mario Alberto Varela M.D. / YONAS 44:21 PM documented in this encounter [facility] 03-15-2024 History of Present illness Narrative KATIA SHAIKH [id number] 03/15/2024 [facility] Department of Radiation Oncology Treatment Planning Note For reasons stated in the consult note, Katia Shaikh is a candidate for radiation therapy. Based on review and interpretation of the relevant diagnostic studies together with the exam findings, Katia Shaikh was simulated on 03/15/2024 at which time the target volume and/or requisite davila were delineated, as indicated in the simulation note, to be treated according to the prescription. After reviewing the treatment plan with dosimetry, the plan was approved to deliver the prescribed course of radiation to the target area to allow for the best isodose distribution, treating to the 98% isodose line with 15MV and 2 davila. Custom MLC wedges asym jaws were the treatment devices used to shape/modify the beams. A completed summary of this plan dated 03/16/2024 incorporated herein by reference includes dose, beam arrangements, energy, blocking, isodose distribution, and/or ports and DVH. Electronically Signed Mario Alberto Varela M.D. 49:31 AM documented in this encounter [facility] 03-15-2024 Note [facility] 03-15-2024 Note [facility] 03-13-2024 Telephone encounter Note Patient calling with new onset unilateral (right) leg swelling. Advised to go to ED for DVT evaluation. Discussed risks delay in diagnosis of potential DVT (risk of PE). Tabitha Montana MD Hematology-Oncology Fellow Phone/Pager: [phone] Page me [facility] Work Phone: 03-13-2024 Miscellaneous Notes Patient calling with new onset unilateral (right) leg swelling. Advised to go to ED for DVT evaluation. Discussed risks delay in diagnosis of potential DVT (risk of PE). Tabitha Montana MD Hematology-Oncology Fellow Phone/Pager: [phone] Page me documented in this encounter [facility] 03-10-2024 Telephone encounter Note APHERESIS PHONE FOLLOW [...] Altman RN March 10, 2024 4:18 PM [facility] Work Phone: 03-10-2024 Miscellaneous Notes APHERESIS PHONE [...] Altman RN March 10, 2024 4:18 PM documented in this encounter [facility] 03-09-2024 Note [facility] 03-09-2024 History of Present illness Narrative [...] Change to Band-Aid in am. Call tomorrow [phone] to report progress. Report any concerns and/or go to the emergency room. Do not get it wet for one week (such as taking showers or swimming), avoid heavy exertion (including weight training exercises) for same period. Ambulatory patient. SIGNATURE: Noah Altman RN PATIENT NAME: Katia Shaikh DATE: March 09, 2024 TIME: 1:55 PM PAGER/CONTACT #: [phone] [facility] MNC COLLECTION FOR IMMUNE EFFECTOR CELL THERAPY : 1955 Age:[age] year old Gender: male BP 120/77 Pulse 92 Temp 36.7 C (98.1 F) (Oral) Resp 18 Ht 180.1 cm (5' 10.91 ) Wt 82.1 kg (181 lb) BMI 25.31 kg/m Start Procedure Time: 09:19 Day: 1 Procedure: MNC Collection for [facility] Vendor ID: [id number] Protocol: N/A Physician: Dr. Galdamez BMT Coordinator: Cherelle Marshall Diagnosis: Diffuse Large B cell Lymphoma Patient arrived: ambulatory from IR accompanied by Spouse Patient indentification confirmed by: Patient name Katia Shaikh, Date of - 1955. Medical and Behavioral History: No change from date IDM checked. Interval History: Has felt well. , No fever or chills. , No shortness of breath. , and No headaches Patient is outpatient. Collection performed at [facility] ([facility] Collection bag identification label confirmed with patient and second staff member DK. REVIEW OF SYSTEMS: fever none, no chills, [...] for anticoagulation during collection NSS lot # [id number] NSS expiration ACD lot # [id number] ACD expiration Apr 27 Machine Information Machine Optia # 6 cMNC Machine Clean vv Alarm Check vv Kit lot # [id number] Kit expiration 2025-11-03 Anticoagulant Connection Adapter Lot # [id number] Anticoagulant Connection Adapter Expiration Date 2025-08-03 Blood warmer # 6 Blood warmer tubing lot# [id number] Blood warmer tubing expiration 2025-06-04 Blood warmer temperature: 40.8 C Patient's Total Blood Volume 5309 ml Processed: 2.8 blood volumes = 77659 ml Collected 208 ml product. AC Ratio: 12:1 AC in Product: 26 Product labeled per protocol. Product picked up by : Advanced Manufacturing Technician Upon completion: Temp 98.2 F oral, Pulse 93, BP 124/73, Resp 18/min Red and Blue port caps changed. Flushed Red with 10 ml NSS and White with 10 ml NSS. Dressing N/A, central line remove after the procedure. Procedure tolerated well. Patient discharged ambulatory. Patient collection completed Procedure end time: 13:01 Noah Altman RN [facility] [place]O NOTE OF PERSONAL INVOLVEMENT IN [...] procedure well. Faisal Blanco PA-C 03/09/24 Pager: [phone] documented in this encounter [facility] 03-09-2024 Nurse Note AMBULATORY PATIENT EDUCATION [...] By Noah Altman RN in Department: HEMATOLOGY/ONCOLOGY [facility] 03-09-2024 Nurse Note AMBULATORY PATIENT EDUCATION [...] in Department: HEMATOLOGY/ONCOLOGY documented in this encounter [facility] 03-09-2024 Note [facility] 03-09-2024 Note [facility] 03-09-2024 History of Present illness Narrative Images from the original note were not included. [facility] DEPARTMENT OF HEMATOLOGY AND MEDICAL ONCOLOGY DIAGNOSIS: B-cell NHL REASON FOR VISIT: Follow up DATE OF VISIT: March 08, 2024 HISTORY OF PRESENT ILLNESS: 2001: Diagnosed with stage III DLBCL arising from follicular lymphoma. At time of diagnosis he had a lot of SOB given location of the disease. He was treated with six cycles of CHOP (+/- rituximab, OSH records mention R but he does not recall this) followed by radiation to his chest. He did well with therapy and achieved a complete remission. March 2023: Noticed lump on his leg prompting evaluation which led to biopsy and imaging. This was an incisional biopsy. The pathology was read as DLBCL at [facility]. Apr 2023: PET/CT with FDG avid lymphadenopathy [...] from [place] Hypothyroidism SOCIAL HISTORY: Lives in [place], [place] to Jennifer who is present today Retired from [employer] Likes car racing with his son Previous smoker Very active MEDICATIONS: Reviewed and updated in [employer]. PHYSICAL EXAM: VS: BP 130/76 Pulse 91 [...] Neut (k/uL) Date Value 03/09/2024 5.36 Abs [place] (k/uL) Date Value 03/09/2024 1.06 (H) Abs [...] incisional biopsy was read as DLBCL at [facility] but when reviewed by [facility] including the [...] plan. Niesha Galdamez MD Associate Staff Physician [address] [place] [address] Pager: [phone] documented in this encounter [facility] 03-09-2024 Note HNO ID: [id number] Author: RAVEN OBREGON RN Service: Interventional Radiology Author Type: Registered Nurse Type: Nursing Progress Note Filed: 03/09/2024 08:46 Note Text: Pt sent to [facility] with Port accessed in case they will need to use port. [facility] 03-08-2024 Nurse Note Additional intake questions: Has the patient had fever, nausea, vomiting, diarrhea, constipation, fatigue for > 1 week? No Does the patient have a decreased appetite? No Does patient want to see a Sales Office Assistant? No (yes to any of above refer patient to schedulers for dietitian appointment) ) Does patient have any new or increased numbness or tingling of extremities? No Is patient interested in fertility information? No Does patient need any prescription refills? No Does patient have an advanced directive in place? No, Patient referred to [facility] Electronically Signed By: Jill Broussard LPN [facility] 03-08-2024 Nurse Note Additional intake questions: Has the patient had fever, nausea, vomiting, diarrhea, constipation, fatigue for > 1 week? No Does the patient have a decreased appetite? No Does patient want to see a Sales Office Assistant? No (yes to any of above refer patient to schedulers for dietitian appointment) ) Does patient have any new or increased numbness or tingling of extremities? No Is patient interested in fertility information? No Does patient need any prescription refills? No Does patient have an advanced directive in place? No, Patient referred to [facility] Electronically Signed By: Jill Broussard LPN documented in this encounter [facility] 03-02-2024 Telephone encounter Note Patient is scheduled , 03/25 at 12:15pm for his PET scan in [place]. Fiona Adams [facility] 03-02-2024 Miscellaneous Notes Patient is scheduled 03/25 at 12:15pm for his PET scan in [place]. Fiona Adams documented in this encounter [facility] 02-26-2024 Telephone encounter Note 1st time treatment report. Patient is active with Medicare A and B, LOC 80%, $240 deductible has $0 remaining with no OOP max. Patient has [employer] Medicare SUPPLEMENT as a secondary to picker/puller all 20% Medicare coins. Patient financial responsibility is $0 for each treatment in 2023.Called the patient to discuss navigator services, Cost Facit Questionnaire completed over the phone. Dx: Diffuse large B cell lymphoma C83.38 // DxDate: 02/18/2024 // Physician: Niesha Galdamez MD [id number]. [facility] Work Phone: 02-26-2024 Miscellaneous Notes 1st time treatment report. Patient is active with Medicare A and B, LOC 80%, $240 deductible has $0 remaining with no OOP max. Patient has [employer]na Medicare SUPPLEMENT as a secondary to picker/puller all 20% Medicare coins. Patient financial responsibility is $0 for each treatment in 2023.Called the patient to discuss navigator services, Cost Facit Questionnaire completed over the phone. 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 documented in this encounter [facility] 02-25-2024 Telephone encounter Note SOCIAL WORK FOLLOW UP NOTE: CANCER CENTER Date of service: 02/25/24 Katia Shaikh is being seen for a follow up social work visit. Today's visit includes: spouse TOPICS ADDRESSED: coping/support PLAN: Communicate pertinent medical/psychosocial information to Cancer Center team, Continue follow up as needed , and Provide emotional support to patient/family F/U APPOINTMENT: PRN Assigned SW listed in Care Team tab: Yes SW received phone call from [employer]over[employer]'s , Jennifer, today. She reported they have several questions regarding upcoming appointments and post-transplant medications. SW reached out to [facility] [place] for additional assistance. Jennifer reported they have been concerned about the financial stress of travel and lodging expenses. GIL made a referral to the [facility] financial navigators for assistance with [facility] grants. She reported her and Roverto have been feeling frustrated and overwhelmed with upcoming medical appointments. SW provided validation and emotional support. SW to follow. FREDA Cottrell [facility] Work Phone: 02-25-2024 Miscellaneous Notes SOCIAL WORK FOLLOW UP NOTE: CANCER CENTER Date of service: 02/25/24 Katia Shaikh is being seen for a follow up social work visit. Today's visit includes: spouse TOPICS ADDRESSED: coping/support PLAN: Communicate pertinent medical/psychosocial information to Cancer Center team, Continue follow up as needed , and Provide emotional support to patient/family F/U APPOINTMENT: PRN Assigned SW listed in Care Team tab: Yes SW received phone call from [employer]'s , Jennifer, today. She reported they have several questions regarding upcoming appointments and post-transplant medications. SW reached out to [facility] [place] for additional assistance. Jennifer reported they have been concerned about the financial stress of travel and lodging expenses. SW made a referral to the [facility] financial navigators for assistance with [facility] grants. She reported her and Roverto have been feeling frustrated and overwhelmed with upcoming medical appointments. SW provided validation and emotional support. SW to follow. FREDA Cottrell documented in this encounter [facility] 02-24-2024 History of Present illness Narrative PSYCHOSOCIAL ASSESSMENT BLOOD AND MARROW TRANSPLANT PROGRAM DATE OF ASSESSMENT:02/25/24 Psychosocial Assessment of Candidates for Transplantation (PACT) Score: 3 - good transplant candidate DATA: Katia Shaikh is a 68 year old male who is planning on undergoing an Chimeric Antigen Receptor (CAR) T-cell therapy. His oncologist at [facility] is Dr. Galdamez. Katia Shaikh was diagnosed [...] . HOME ENVIRONMENT: Katia Shaikh resides at [address] [place] [address] with his , Jennifer (about an hour and 15 minutes from [facility] Main). Katia Shaikh has access [...] support; he does not affiliate with a roman catholic. 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 It [...] Assistance Program. He has not received additional [facility] grants. He will not be referred to the [facility] Financial Navigators for enrollment. Katia Shaikh does not express financial concerns. He was provided with information about discounted parking at [facility]. He does not qualify for parking assistance and was referred to the [facility] Patient Account Executive Key Accounts for assistance. INTERESTS: Katia Shaikh enjoys car racing with his son and riding his motorcycle. ADVANCE CARE PLANNING: Katia Shaikh states that he does not have a living will; Provided education on their right to complete AD documents. . he does not have a power of criminal defense attorney for health care; Provided education on their [...] Yes FREDA Cottrell documented in this encounter [facility] 02-24-2024 Note [facility] 02-24-2024 Note [facility] 02-24-2024 History of Present illness Narrative CAR [...] discharge requirements including follow up appointment at [facility] within 5 business days of discharge, physician appointment at 1 month, 2 months and 100 days post discharge. Also explained the possibility that the patient would need to follow in [place] more often if necessary. Reinforced that it is required to have a 24/7 caregiver for 4 weeks post infusion, that driving or operating heavy machinery for 8 weeks post infusion is prohibited, and that they must stay within 2 hours of [facility] for 4 weeks post infusion. Reviewed allergies [...] 1 hour REFERRAL (RECOMMENDATION): Social Work Radha Peng, RN documented in this encounter [facility] 02-23-2024 Note [facility] 02-23-2024 History of Present illness Narrative SOCIAL WORK PROGRESS NOTE Name: Katia Shaikh Pre-cell infusion assessment chart review. SW is scheduled to meet with Mr. Shaikh on 02/24/24 for an assessment for CAR T-Cell Therapy. SW reviewed chart and prepared documentation for appointment. SW to follow. Signature: FREDA Cottrell Date: February 23, 2024 Time: 11:21 AM documented in this encounter [facility] 02-18-2024 Miscellaneous Notes SCHEDULED 03/31 Authorization number: [...] No - Schedule as requested Comments for Seed Corn Production Manager: 03/31/24 ROUTE TO SCHEDULERS [place] P PET SCOW HAND or P NM SPECIAL STUDIES [facility] This form is used for MAIN CAMPUS APPOINTMENTS ONLY. Is this request for a Main [place] PET scan appointment? Yes: Pizza Driver: Elena Foster Requesting Person (Paula Martins): [id number] Area Code + Phone/Pager: [phone] Who do we call to schedule this appointment? Requestor Requesting Staff [id number] Area Code + Phone/Pager: N/A PET Orders [...] NO Send requests to P COORD REVIEW [facility] documented in this encounter [facility] 02-18-2024 Instructions Radha Peng RN - 02/18/2024 9:45 AM EDT PROTOCOL: [...] - see orders J1-02/23 Echo LVEF x [id number] 1 hr J1-5 02/23 CT scans - see orders Before LD [...] Interview J1-1 04/06 documented in this encounter [facility] 02-18-2024 Miscellaneous Notes CAR T-cell Initial Telephone Contact Spoke with Katia Shaikh on the telephone on 02/18/2024 at 0915 regarding CAR T-Cell Therapy / [employer]. Discussed evaluation testing required, including bone marrow biopsy, for which a flag car driver is required. Once resulted, all staging results and requested information will be sent to insurance company for approval. Reviewed generic calendar outlining the CAR-T process. Reviewed that prior to leukapheresis, patient will need to have a temporary catheter placed in Interventional Radiology. Discussed process of collecting/processing T cells, including 1 day of Apheresis, [facility] CAR-T cells. Explained that [...] to be inserted prior to admission to [facility], and that patient will receive the Car-T [...] Contact information provided. Radha Peng RN Katia Shaikh is calling Niesha Galdamez MD today regarding Customer Equipment Engineer - Other (Next Steps) Patient requesting call back to go over next steps and what to expect next. Requesting response back: [phone] (cell) Duration of symptoms: N/A Patient has been identified by name and birthdate. Pretty Jimenez February 18, 2024 documented in this encounter [facility] 02-12-2024 History of Present illness Narrative Images from the original note were not included. 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 At time of diagnosis he had a lot of SOB given location of the disease. He was treated with six cycles of CHOP (+/- rituximab, [facility] records mention R but he does not recall this) followed by radiation to his chest. He did well with therapy and achieved a complete remission. March 2023: Noticed lump on his leg prompting evaluation which led to biopsy and imaging. This was an incisional biopsy. The pathology was read as DLBCL at [facility]. Apr 2023: PET/CT with FDG avid lymphadenopathy [...] from [place] Hypothyroidism SOCIAL HISTORY: Lives in [place], [place] to Jennifer who is present today Retired from [employer] Likes car racing with his son Previous smoker Very active MEDICATIONS: Reviewed and updated in [employer]. PHYSICAL EXAM: VS: BP 133/72 Pulse 75 [...] Neut (k/uL) Date Value 12/25/2023 3.66 Abs [place] (k/uL) Date Value 12/25/2023 1.06 (H) Abs [...] incisional biopsy was read as DLBCL at [facility] but when reviewed by [facility] including the [...] Steven Thurston February 12, 2024 11:29 AM I, Niesha Galdamez MD, personally performed the services described in this documentation. All medical record entries made by the scribe were at my direction and in my presence. I have reviewed the chart and agree that the record reflects my personal performance and is accurate and complete. Niesha Galdamez MD Associate Staff Physician [facility] [address] [place] [address] Pager: [phone] documented in this encounter [facility] 02-12-2024 Note [facility] 02-12-2024 Nurse Note Additional intake questions: Has the patient had fever, nausea, vomiting, diarrhea, constipation, fatigue for > 1 week? No Does the patient have a decreased appetite? No Does patient want to see a Sales Office Assistant? No (yes to any of above refer patient to schedulers for dietitian appointment) ) Does patient have any new or increased numbness or tingling of extremities? No Is patient interested in fertility information? No Does patient need any prescription refills? No Does patient have an advanced directive in place? No Electronically Signed By: Wallace Tolentino LPN documented in this encounter [facility] 02-02-2024 Note [facility] 02-02-2024 History of Present illness Narrative POPULATION HEALTH NAVIGATION OUTREACH Action/FYI PCP is EMELIA GONZALEZ MD per Care Everywhere PCP field updated Reason for Outreach Care Gap/HCC or Scheduling Wellness Visits Care Gaps due: Establish Care Appointment Patient Contacted: Unable or unnecessary to reach patient: PCP field updated Navigation Signature: Brit Arzola MA February 02, 2024 4:05 PM documented in this encounter [facility] 02-02-2024 Note [facility] 02-02-2024 History of Present illness Narrative PATIENT NAME: Katia Shaikh DATE: 02/02/2024 PRIMARY CARE PHYSICIAN: No PCP OTHER PHYSICIANS: Dr. Rivera, Dr. Emelia Gonzalez ([facility] [place]), Dr. Niesha Galdamez Portions of this encounter note have been copied from the note from 01/12/2024 and has been updated where appropriate, and reflect my current medical decision making from today. CC: This is a 68 year old male with recurrent lymphoma, seen for scheduled follow-up. INTERIM HISTORY: Since the patient's last visit here he followed up with the [facility] lymphoma group (Dr. Galdamez) and [...] PATHOLOGY: 12/17/2023 Right inguinal lymph node biopsy ([facility]) [facility]: Mature B-cell non-Hodgkin lymphoma [facility] Pathology:-Aggressive large B-cell lymphoma, favor germinal center immunophenotype 05/07/2023 Right inguinal lymph node biopsy [facility]: Diffuse large B-cell lymphoma [facility] Pathology: [...] Criteria score : 4 04/24/2023 PET scan ([facility]) Above the diaphragm the patient has [...] of a right inguinal lymph node at [facility]. Initial pathology per [facility] consistent with diffuse large B-cell lymphoma. However, on review per [facility] pathology it was felt to be consistent with follicular grade 3 lymphoma rather than diffuse large B-cell lymphoma. He was seen by Dr. Galdamez at [facility], and recommendations were to proceed with chemotherapy [...] excisional biopsy of the right inguinal node. [facility] pathology confirmed aggressive large B-cell [...] is scheduled to see Dr. Galdamez at [facility] on 02/12/2024 at which time the patient's [...] Michael Boykin MD documented in this encounter [facility] 01-30-2024 Note [facility] 01-30-2024 Note [facility] 01-28-2024 History of Present illness Narrative [...] Diagnosis: DLBCL likely transformed from [place] Path: OCULAR CARE TECHNOLOGIST GCB ; Ki-67 70-80%; No MYC/BCL2 double expression; FISH positive BCL6; CD5 negative NCCN-IPI: Pending Age 60-75 (2) and LDH >1-3x ULN (1); Low-intermediate (2-3); 5yr PFS 74%, OS 82% FOREST FIRE CONTROL OFFICER-IPI: Pending Age >60 and LDH elevated; Intermediate [...] IV DLBCL diagnosed in March 2023 at [facility] who sought second opinion at [facility] where Pathology rendered diagnosis of [...] to continue following with Dr. Castaneda at [facility], who has recommended CAR-T therapy. We discussed that his overall picture is potentially consistent with a late relapse of DLBCL vs a de josse DLBCL in the setting of [place]. There was discrepancy regarding his diagnosis last March, initially being DLBCL then changed to [place] 3A per [facility] Path review. He has now [...] within 9 months in a retrospective study (Jacqueline G, J Clin Oncol. 2023;42(2):205-217) and it [...] Cici Mora MD Hematology/Medical Oncology Fellow Pager [phone] HISTORY OF PRESENT ILLNESS: See Oncology History [...] IV DLBCL diagnosed in March 2023 at [facility] who sought second opinion at [facility] where Pathology changed the diagnosis [...] to continue following with Dr. Castaneda at [facility], who has recommended CAR-T therapy. 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 BR x6 cycles was recommended, completed in 10/2023. EOT PET demonstrated significant improvement and resolution in most areas of prior involvement, but persistent FDG avidity in the right inguinal LN. He underwent an excisional LN biopsy which demonstrated DLBCL ([facility] pathology). We reviewed his clinical [...] to proceed with CD19.CAR-T cell therapy at [facility]. A PET scan is planned [...] the discharge instructions. Dorcas Bolanos MD, MSCR Cleaner Greaser - Division of Hematology [facility] documented in this encounter [facility] 01-28-2024 Instructions Chioma Austin RN - 01/28/2024 10:[address] Bolanos Clinic Orientation Thank you for entrusting your care to us at [facility]. Our clinic specifically focuses on the management [...] members: Bakari Bolanos MD, MSCR: physician Patti Isidro DIVERSIFIED CROPS II FARMWORKER: nurse practitioner Chana Brown CNP: nurse practitioner Danielle Yates RN: clinic nurse Chioma Austin, RN: clinic nurse Kelsy Gage, RN: Patient Care Metal Sprayer Brian Hilliard MS, RD: solar sales specialist [facility]: Pharmacists Logging Rafter Laborer [facility] is a teaching institution; you may also [...] we will contact you via phone or MyChart. With rare exception, we schedule visits shortly [...] please call the nurse triage line at [phone] (open 26/05). Nurse Triage . For non-urgent matters or general questions, we prefer that you write them down so that we can address them in person at our next visit. If you feel that your question needs to be addressed prior to your next visit, please call nurse triage ([phone]) or send a message in [employer]. If you need medication refills for drugs that we have prescribed you, it is best to let us know during your office visit. If you need a refill before your next visit, please send a message via [employer]. Please alert us at least 7 days [...] completed (to you, your employer, etc). [employer]: The medical information you will have access to within the My Chart program is limited (basic laboratory results, summary of medical history, visit history, and selected billing information). If you need results of a test that you can't find within [employer], please feel free to call us and we will get back to you with that information. Please allow 24-48 hours for a response when using My Chart. Please do not use My Chart for urgent needs. The best way to communicate urgent needs is by calling the nurse triage line. [place]: Each year, I ride 50+ miles for cancer research. This is a bike ride in [place] - 100% of every donation is invested at [facility] for innovative cancer research. Please see my rider profile: [email or web address] Results for orders placed or performed in [...] 75 >=60 mL/min/1.73m2 documented in this encounter [facility] 01-27-2024 Miscellaneous Notes Attempted to contact patient to discuss CAR-T therapy. No answer, message left and contact information provided. Radha Peng RN January 27, 2024 3:07 PM documented in this encounter [facility] 01-19-2024 Note [facility] 01-16-2024 Note [facility] 01-16-2024 History of Present illness Narrative Images from the original note were not included. [facility] DEPARTMENT OF HEMATOLOGY AND MEDICAL ONCOLOGY [facility] VISIT This visit is a Audio Only Visit encounter which required patient-provider interaction for the medical decision making as documented below. Persons Present: patient and patient's spouse/significant other I have communicated my name and active licensure. The patient s identity and physical location were verified at the time of this visit. Katia Shaikh or their legal tax representative has been informed of the risks [...] with six cycles of CHOP (+/- rituximab, [facility] records mention R but he does not recall this) followed by radiation to his chest. He did well with therapy and achieved a complete remission. March 2023: Noticed lump on his leg prompting evaluation which led to biopsy and imaging. This was an incisional biopsy. The pathology was read as DLBCL at [facility]. Apr 2023: PET/CT with FDG avid lymphadenopathy [...] from [place] Hypothyroidism SOCIAL HISTORY: Lives in [place], [place] to Jennifer who is present today Retired from [employer] Likes car racing with his son Previous smoker Very active MEDICATIONS: Reviewed and updated in [employer]. PHYSICAL EXAM: None- audio only DATA REVIEWED: [...] will order PET/CT to be done at [place]. Niesha Galdamez MD Associate Staff Physician [place] [phone] Pager: [phone] documented in this encounter [facility] 01-14-2024 Miscellaneous Notes Pt has a virtual [...] Ivania Jackman RN documented in this encounter [facility] 01-12-2024 Note [facility] 01-12-2024 History of Present illness Narrative PATIENT NAME: Katia Shaikh DATE: 01/12/2024 PRIMARY CARE PHYSICIAN: No PCP OTHER PHYSICIANS: Dr. Rivera, Dr. Emelia Gonzalez ([facility] [place]), Dr. Niesha Galdamez Portions of this encounter note have been copied from the note from 12/25/2023 and has been updated where appropriate, and reflect my current medical decision making from today. CC: This is a 68 year old male with recurrent lymphoma, seen for scheduled follow-up. INTERIM HISTORY: Since the patient's last visit here his right inguinal lymph node biopsy was reviewed by [facility] pathology. The diagnosis of aggressive B-cell lymphoma was confirmed. He was by Dr. Niesha Galdamez at [facility] for recommendations concerning treatment. Aggressive treatment with [...] PATHOLOGY: 12/17/2023 Right inguinal lymph node biopsy ([facility]) [facility]: Mature B-cell non-Hodgkin lymphoma [facility] Pathology:-Aggressive large B-cell lymphoma, favor germinal center immunophenotype 05/07/2023 Right inguinal lymph node biopsy [facility]: Diffuse large B-cell lymphoma [facility] Pathology: [...] Criteria score : 4 04/24/2023 PET scan ([facility]) Above the diaphragm the patient has [...] of a right inguinal lymph node at [facility]. Initial pathology per [facility] consistent with diffuse large B-cell lymphoma. However, on review per [facility] pathology it was felt to be consistent with follicular grade 3 lymphoma rather than diffuse large B-cell lymphoma. He was seen by Dr. Galdamez at [facility], and recommendations were to proceed with chemotherapy [...] excisional biopsy of the right inguinal node. [facility] pathology confirmed aggressive large B-cell [...] Michael Boykin MD documented in this encounter [facility] 01-05-2024 Note [facility] 01-05-2024 History of Present illness Narrative Images from the original note were not included. 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 At time of diagnosis he had a lot of SOB given location of the disease. He was treated with six cycles of CHOP (+/- rituximab, OSH records mention R but he does not recall this) followed by radiation to his chest. He did well with therapy and achieved a complete remission. March 2023: Noticed lump on his leg prompting evaluation which led to biopsy and imaging. This was an incisional biopsy. [facility] [facility]. Apr 2023: PET/CT with FDG avid lymphadenopathy [...] a copy of the path report from [facility] and they thing [facility] was [...] from [place] Hypothyroidism SOCIAL HISTORY: Lives in [place], [place] to Jennifer who is present today Retired from [employer] with his son Previous smoker Very active MEDICATIONS: Reviewed and updated in [employer]. PHYSICAL EXAM: VS: BP 139/80 Pulse 93 [...] FDG avid osseous lesion. Deauville score: 5 [facility] PATH REPORT [facility] REVIEW OF PATH 12/24/2023 FINAL DIAGNOSIS Outside slides from [facility] [place], [place], labeled [id number], collected 12/17/2023: A-B. Right inguinal lymph node, [...] been determined by the performing laboratory within [facility] s [facility] [place] ([facility], [facility], [facility], [facility], [facility], [facility], or [facility]) in a manner consistent with CLIA [...] deeper sections of tissue block A5 at [facility]. The lymphoma cells are positive for CD10 [...] incisional biopsy was read as DLBCL at [facility] but when reviewed by [facility] including the hematopathology consensus conference, it was read as [place], grade 3A. I explained this review was released into [employer] and I also provided a copy for [...] decision. Niesha Galdamez MD Associate Staff Physician [facility] [address] [place] [address] Pager: [phone] CC: Michael Boykin ([facility]) [address] [place] [address] [place] [address] . documented in this encounter [facility] 01-05-2024 Nurse Note Additional intake questions: Has the patient had fever, nausea, vomiting, diarrhea, constipation, fatigue for > 1 week? Yes, constipation (day of last BM 01/05/24) Does the patient have a decreased appetite? No Does patient want to see a Sales Office Assistant? No (yes to any of above refer patient to schedulers for dietitian appointment) ) Does patient have any new or increased numbness or tingling of extremities? No Is patient interested in fertility information? No Does patient need any prescription refills? No Does patient have an advanced directive in place? No, Patient referred to [facility] documented in this encounter [facility] 12-30-2023 Note [facility] 12-30-2023 History of Present illness Narrative Radiation Oncology - New Patient/Consult Note PATIENT NAME: Katia Shaikh PATIENT REQUESTING PROVIDER: Dr. Boykin DIAGNOSIS: Non-Hodgkin's lymphoma, initially diagnosed and treated as stage III diffuse large B cell 2002. Patient was found to have recurrence bilateral [...] pathology review [facility]: FINAL DIAGNOSIS Outside slides ([id number], 05/07/2023), [place], [place] Right inguinal lymph node, excisional biopsy: [...] with Dr. Boykin and Dr. Galdamez at [facility] regarding this. Signed by: Viviana Varela MD cc: To use this Smartlink, specify the provider ID whose address you want to display, e.g., .PROVADDR[1 (where 1 is the provider ID). Michael Boykin ([facility]) [address] [place] [address] [place] [address] documented in this encounter [facility] 12-30-2023 Nurse Note Pacemaker/Defibrillator?N Previous Cancer(s)?NHL dx'd ~ 22 years ago Previous Radiation?Y -chest 22 years ago Lupus/Scleroderma?N On body monitoring device?N documented in this encounter [facility] 12-29-2023 Miscellaneous Notes Jonathan Hanson, I called [facility] and spoke with Malu and scheduled [...] Please advise and we will call both [facility] [phone] to reschedule and call patient back as well with information regarding this appointment. Thank you for your time and help with getting this patient scheduled. Fabi York Pss Clerical: Pt will need to see Dr Galdamez @ [facility] to discuss potential treatment options. This may be a virtual visit. Please schedule and contact pt w/ the appointment. Ivania Jackman, RN Images from the original note were not included. Michael Boykin MD Winter, Allison, MD; Iavnia Jackman, RN Thanks for getting back to [...] Niesha Galdamez MD documented in this encounter [facility] 12-25-2023 Note [facility] 12-25-2023 History of Present illness Narrative PATIENT NAME: Katia Shaikh DATE: 12/25/2023 PRIMARY CARE PHYSICIAN: No PCP OTHER PHYSICIANS: Dr. Rivera, Dr. Emelia Gonzalez ([facility] [place]), Dr. Niesha Galdamez Portions of this encounter [...] PATHOLOGY: 12/17/2023 Right inguinal lymph node biopsy ([facility]) [facility]: Mature B-cell non-Hodgkin lymphoma [facility] Pathology: Pending 05/07/2023 Right inguinal lymph node biopsy [facility]: Diffuse large B-cell lymphoma [facility] Pathology: [...] Criteria score : 4 04/24/2023 PET scan ([facility]) Above the diaphragm the patient has [...] of a right inguinal lymph node at [facility]. Initial pathology per [facility] consistent with diffuse large B-cell lymphoma. However, on review per [facility] pathology it was felt to be consistent with follicular grade 3 lymphoma rather than diffuse large B-cell lymphoma. He was seen by Dr. Galdamez at [facility], and recommendations were to proceed with chemotherapy [...] referred his recent lymph node biopsy to [facility] pathology for their evaluation. If the node is consistent with a follicular lymphoma we will confer with [facility] hematology options for management which [...] Michael Boykin MD documented in this encounter [facility] 12-22-2023 Miscellaneous Notes Sent for path to be sent. Pt's lymph node biopsy was positive for NHL B-Cell Lymphoma. Dr Boykin would like pt's path sent to [facility] for review. Pt notified of the above and verbalizes understanding. BRM/Clerical: Path Review order pended. Ivania Jackmna RN documented in this encounter [facility] 12-18-2023 Hospital Discharge instructions Follow Up Care 12/18/2023 10:34:54 With:MIGUEL LOFTON, TERRELL Kirk Address: [address] [place] [address]- When: only if needed General Surgery [place] 12-15-2023 Miscellaneous Notes Roverto is scheduled to have his bx on Fri12-17-23. Rescheduled his follow up with you from 12-16 to 12-25. This is just an FYI. Please let me know if you need to see him prior to his bx. documented in this encounter [facility] 12-09-2023 Note Chief Complaint consultation for right [...] Not Given Patient (more content not included)... [facility] Comment on above: Result Comment: Elec tronically Signed By: MIGUEL LOFTON, Chiquita Mas\Date and Time Signed: 12/09/23 18:51 EST 11-20-2023 Note HNO ID: [id number] Author: MARLEE HARPER RN Service: ? Author Type: Registered Nurse Type: Progress Notes Filed: 11/20/2023 13:34 Note Text: Labs drawn on Friday with PET scan, no labs ordered for today and patient will see Dr. 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 Would you like labs? 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 Rivera, Dr. Emelia Gonzalez ([facility] [place]), Dr. Niesha Galdamez Portions of this encounter [...] PATHOLOGY: 05/07/2023 Right inguinal lymph node biopsy [facility]: Diffuse large B-cell lymphoma [facility] Pathology: [...] 09/02/2023 160 RADIOLOGY/OTHER STUDIES: 04/24/2023 PET scan ([employer]) Above the diaphragm the patient has significant [...] of a right inguinal lymph node at [facility]. Initial pathology per [facility] consistent with diffuse large B-cell lymphoma. However, on review per [facility] pathology it was felt to be consistent with follicular grade 3 lymphoma rather than diffuse large B-cell lymphoma. Hewas seen by Dr. Galdamez at [facility], and recommendations were to proceed with chemotherapy [...] indicated. 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 Peripheral draw performed. 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 Rivera, Dr. Emelia Gonzalez ([facility] [place]), Dr. Niesha Galdamez Portions of this encounter [...] PATHOLOGY: 05/07/2023 Right inguinal lymph node biopsy [facility]: Diffuse large B-cell lymphoma [facility] Pathology: [...] 07/08/2023 146 RADIOLOGY/OTHER STUDIES: 04/24/2023 [email or web address] Above the diaphragm the patient has significant [...] of a right inguinal lymph node at [facility]. Initial pathology per [facility] consistent with diffuse large B-cell lymphoma. However, on review per [facility] pathology it was felt to be consistent with follicular grade 3 lymphoma rather than diffuse large B-cell lymphoma. Hewas seen by Dr. Galdamez at [facility], and recommendations were to proceed with chemotherapy [...] indicated. 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 Ivania Jackman, STEVE documented in this encounterCleveland Clinic [facility] Hospital08-25-2023 Miscellaneous Notes* Telephone Encounter - Fifi Sommers RN - 06/27/2023 11:43 AM EDT Pt notified that both scripts were sent to [facility]. Pt states he's not sure that the cream will be beneficial because it's such large areas. Encouraged pt to at least try it on the most bothersome areas to see if he gets relief. Fifi Sommers RN * Telephone Encounter - Cleo Feliz APRN.CNP - 06/27/2023 11:38 AM EDT The following [...] area twice daily. Authorizing Provider: CLEO FELIZ APRN.CNP * [...] advise Fifi Sommers RN documented in this encounterCleveland Clinic [facility] Hospital08-23-2023 Miscellaneous Notes* Telephone Encounter - Ivania Jackman [...] well. 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) documented in this encounter [facility]08-10-2023 Miscellaneous Notes* Telephone Encounter - Fifi Sommers [...] back Fifi Sommers RN documented in this encounterCleveland Clinic [facility] Hospital08-09-2023 Evaluation note* Diagnosis 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 Authorizing Provider: CLEO FELIZ APRN.CNP * Telephone Encounter - Ivania Jackman RN - 06/06/2023 3:19 PM EDT Pt requesting his antiemetics be sent to [facility] pharmacy. States that he can get them cheaper there using a Good RX coupon. Cleo: Script pended. Ivania Jackman RN documented in this encounterCleveland Clinic [facility] Hospital08-04-2023 [facility]Nor[facility]08-04-2023 NoteNor[facility]08-04-2023 Miscellaneous Notes * Telephone Encounter - Ivania Jackman RN - 06/06/2023 11:39 AM EDT Pt notified and verbalizes understanding. Ivania Jackman RN * Telephone Encounter - Cleo Feliz APRN.[employer] FARMWORKER - 06/06/2023 8:59 AM EDT The following approved medication requests have been transmitted electronically. Requested Prescriptions Signed Prescriptions Disp Refills allopurinol (ZYLOPRIM) 300 mg tablet 30 tablet 1 Sig: Take 1 tablet by mouth once daily. Authorizing Provider: CLEO FELIZ APRN.[employer]ERS[employer] FARMWORKER * Telephone Encounter - Ivania Jackman RN [...] at least 1 month. 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 Authorizing Provider: CLEO FELIZ APRN.[employer] FARMWORKER * Telephone Encounter - Ivania Jackman RN - 06/05/2023 4:07 PM EDT Pt will be in tomorrow for education (Rituxan, Treanda) Scripts for antiemetics pended. Ivania Jackman RN documented in this encounterCleveland Clinic [facility] Hospital08-03-2023 History of Present illness Narrative* Michael Boykin MD - 06/05/2023 8:10 AM EDT PATIENT NAME: Katia Shaikh DATE: 06/05/2023 PRIMARY CARE PHYSICIAN: No PCP OTHER PHYSICIANS: Dr. Rivera, Dr. Emelia Gonzalez ([facility] [place]), Dr. Niesha Galdamez Portions of this encounter note have been copied from my note from 05/22/2023 and has been updated where appropriate, and reflect my current medical decision making from today. CC: This is a 67 year old male with recurrent lymphoma, seen for scheduled follow-up. INTERIM HISTORY: Since the patient's last visit here his recent lymph node biopsy was reviewed by [facility] pathology, and it was felt to be consistent with follicular grade 3 lymphoma rather than diffuse large B-cell lymphoma. He was seen by Dr. Galdamez at [facility], and recommendations were to proceed with chemotherapy [...] PATHOLOGY: 05/07/2023 Right inguinal lymph node biopsy [facility]: Diffuse large B-cell lymphoma [facility] Pathology: [...] 06/05/2023 334 RADIOLOGY/OTHER STUDIES: 04/24/2023 PET scan ([employer]) Above the diaphragm the patient has significant [...] of a right inguinal lymph node at [facility]. Initial pathology per [facility] consistent with diffuse large B-cell lymphoma. However, on review per [facility] pathology it was felt to be consistent with follicular grade 3 lymphoma rather than diffuse large B-cell lymphoma. Hewas seen by Dr. Galdamez at [facility], and recommendations were to proceed with chemotherapy [...] MD CC: Dr. Rivera, Dr. 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 No answer to left detailed message. Niesha Galdamez MD Date: June 01, 2023. documented in this encounterCleveland Clinic [facility]on Hospital07-25-2023 Nurse Note* Danielle Lazaro RN - 05/27/2023 2:51 PM EDT Additional intake questions: Has the patient had fever, nausea, vomiting, diarrhea, constipation, fatigue for > 1 week? No Does the patient have a decreased appetite? No Does patient want to see a Sales Office Assistant? No (yes to any of above refer patient to schedulers for dietitian appointment) ) Does patient have any new or increased numbness or tingling of extremities? No Is patient interested in fertility information? No Does patient need any prescription refills? No Does patient have an advanced directive in place? No, Patient referred to Resource [facility] Electronically Signed By: Danielle Lazaro RN documented in this encounterCleveland Clinic [facility] Hospital07-25-2023 History of Present illness Narrative* Niesha Galdamez MD - 05/27/2023 2:43 PM EDT Images from the original note were not included. [facility] DEPARTMENT OF HEMATOLOGY AND MEDICAL ONCOLOGY REASON [...] biopsy showed DLBCL according to the local OS read. He decided to establish with Dr. Boykin at [facility].He does have some fatigue and just minimal weight loss of about five pounds is otherwise feeling well. No fevers, drenching night sweats, unintentional weight loss. No enlarged lymph nodes. 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 Result Received: 05/01/23 10:37 AM ASSESSMENT [...] needed. Niesha Galdamez MD Associate Staff Physician [address] [place] [address] Pager: [phone] CC: Michael Boykin ([facility]) [address] [place] [address] [place] [address] . ADDENDUM: Case presented at tumor board and pathologist explained that [facility] Path review shows follicular lymphoma grade 3A and NOT DLBCL. Outside slides ([id number], 05/07/2023), [place], [place] Right inguinal lymph node, excisional biopsy: [...] Dr. Ashutosh Galdamez MD documented in this encounterCleveland Clinic [facility]on Hospital07-24-2023 Miscellaneous Notes* Telephone Encounter - Fabi Freed - 05/26/2023 2:[address] Rivera office they received this referral and have patient scheduled with Dr. Rivera for portplacement on 05/28 @[facility]. Fabi Wong * Telephone Encounter - [...] the patient. Thank you. documented in this encounterCleveland Clinic [facility]07-20-2023 History of Present illness Narrative* Michael Boykin MD - 05/22/2023 8:17 AM EDT PATIENT NAME: Katia Shaikh DATE: 05/22/2023 PRIMARY CARE PHYSICIAN: No PCP OTHER PHYSICIANS: Dr. Rivera, Dr. Emelia Gonzalez ([facility] [place]) Portions of this encounter note have been [...] PATHOLOGY: 05/07/2023 Right inguinal lymph node biopsy ([facility]) Diffuse large B-cell lymphoma LABS: Hemoglobin (g/dL) Date Value 05/13/2023 13.4 Hematocrit (%) Date Value 05/13/2023 42.3 WBC (k/uL) Date Value 05/13/2023 9.67 Platelet Count (k/uL) Date Value 05/13/2023 306 RADIOLOGY/OTHER STUDIES: 04/24/2023 PET scan ([facility]) Above the diaphragm the patient has [...] of a right inguinal lymph node at [facility]. Pathology revealed diffuse large B-cell lymphoma. [...] his recent biopsy to be reviewed at [facility]. Unfortunately, his initial biopsy from 2001 is not available for review. He will be referred to [facility] lymphoma division for specific recommendations. In the [...] MD CC: Dr. Rivera, Dr. Emelia Gonzalez ([facility] [place]) documented in this encounterCleveland Clinic [facility]07-19-2023 Miscellaneous Notes* Telephone Encounter - Ivania Jackman RN - 05/21/2023 3:24 PM EDT Per pt, his 2001 lymph node biopsy was done per Dr Rivera @ [facility]. Spoke w/ Claire in Medical Records. She reports that they only keep records for 10 years. They will not be able to retrieve pt's original path report. Ivania Jackman RN documented in this encounterCleveland Clinic [facility] Hospital07-18-2023 Miscellaneous Notes* Telephone Encounter - Emma Mendoza - 05/20/2023 2:39 PM EDT Spoke to Alma Rosa at [facility], she has order and will call patient [...] wait on port until he speaks w/ at 's appointment. BRM: ECHO order pended. Clerical: Please schedule ECHO at [facility]. Pt would prefer an appointment next week if possible. Ivania Jackman RN [facility] Miscellaneous Notes* Telephone Encounter - Gretchen Arora - 05/16/2023 9:51 AM EDT 2 nd opinion pathology requested from [facility] to be sent to [facility] for review. documented in this encounterC[facility] History of Present illness Narrative* Michael Boykin MD - 05/13/2023 8:16 AM EDT PATIENT NAME: Katia Shaikh DATE: 05/13/2023 PRIMARY CARE PHYSICIAN: No PCP OTHER PHYSICIANS: Dr. Rivera, Dr. Emelia Gonzalez ([facility] [place]) HPI: This is a 67 year old [...] of a right inguinal lymph node at [facility]. Pathology currently pending. Currently the patient's [...] PATHOLOGY: 05/07/2023 Right inguinal lymph node biopsy ([facility]) Pathology pending LABS: Hemoglobin (g/dL) Date Value 05/13/2023 13.4 Hematocrit (%) Date Value 05/13/2023 42.3 WBC (k/uL) Date Value 05/13/2023 9.67 Platelet Count (k/uL) Date Value 05/13/2023 306 RADIOLOGY/OTHER STUDIES: 04/24/2023 PET scan ([employer]) Above the diaphragm the patient has significant [...] of a right inguinal lymph node at [facility]. Pathology currently pending. Most likely the [...] MD CC: Dr. Rivera, Dr. Emelia Gonzalez ([facility] [place]) documented in this encounterC[facility] Miscellaneous Notes* Telephone Encounter - Darrell February - 08/04/2023 11:54 AM EDT Patient coming in Friday08/05/23 for follow up treatment. Please add labs orders. Thanks. Ceci Ramírez MA documented in [facility] Plan note No data available for this section General Surgery [place] Evaluation note* Diagnosis Non-Hodgkin's lymphoma, unspecified body region, unspecified non-Hodgkin lymphoma type (HCC) Hypothyroidism, unspecified type documented in this encounter [employer] Phone: evaluation note* Diagnosis Non-Hodgkin's lymphoma, unspecified body region, unspecified non-Hodgkin lymphoma type (HCC) Hypothyroidism, unspecified type documented in this encounter CHINO KEVIN Stratos Phone: evaluation note* Diagnosis Non-Hodgkin lymphoma of lymph nodes of multiple regions, unspecified non-Hodgkin lymphoma type (HCC)- Primary Acquired hypothyroidism Unspecified hypothyroidism documented in this encounter [facility] note* Diagnosis 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)- Primary documented in this encounter [facility] note* Diagnosis History of diffuse large B-cell lymphoma- Primary 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) 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) [facility] encounter [facility]* Diagnosis 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) documented in this encounter [facility]* Diagnosis Non-Hodgkin lymphoma of lymph nodes of multiple regions, unspecified non-Hodgkin lymphoma type (HCC)- Primary DE DIOS (dyspnea on exertion) Other dyspnea and respiratory abnormality documented [facility] this encounter [facility]* Diagnosis 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 [facility] in this encounter [facility]* Diagnosis 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 [facility]* Diagnosis 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) documented in this encounter [facility]* Diagnosis Non-Hodgkin lymphoma of lymph nodes of multiple regions, unspecified non-Hodgkin lymphoma type (HCC)- Primary [facility] encounter [facility]* Diagnosis Non-Hodgkin lymphoma of lymph nodes of multiple regions, unspecified non-Hodgkin lymphoma type (HCC) documented in this encounter [facility]* Diagnosis 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 Acquired hypothyroidism Unspecified hypothyroidism History of diffuse large B-cell lymphoma documented [facility] this encounter [facility]* Diagnosis Follicular lymphoma grade IIIa, unspecified body region (HCC)- Primary documented in this encounter [facility]* Diagnosis 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 History of follicular lymphoma documented in this encounter [facility]* Diagnosis Non-Hodgkin lymphoma of lymph nodes of multiple regions, unspecified non-Hodgkin lymphoma type (HCC)- Primary 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) documented [facility] this encounter [facility]* Diagnosis 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 documented in this encounter [facility]* Diagnosis Diffuse large B-cell lymphoma, unspecified body region [facility] Diagnosis High grade B-cell lymphoma (HCC)- Primary Other malignant lymphomas, unspecified site, extranodal and solid organ sites History of follicular lymphoma [facility] Diagnosis 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 History of follicular lymphoma 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) [facility] Diagnosis Personal history of diseases of blood and blood-forming organs Diffuse large B-cell lymphoma, unspecified body region (HCC) Encounter for monitoring cardiotoxic drug therapy Encounter for therapeutic drug monitoring 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) [facility] Diagnosis 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) Personal history of diseases of blood and blood-forming organs 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) [facility] Diagnosis 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) [facility] Diagnosis 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)- Primary 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) [facility] Diagnosis 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) [facility] Diagnosis 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 History of follicular lymphoma [facility] Diagnosis 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)- Primary [facility] Diagnosis Follicular lymphoma grade IIIa, unspecified body region (HCC)- Primary [facility] Diagnosis Follicular lymphoma grade IIIa, unspecified body region (HCC)- Primary [facility] Diagnosis 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)- Primary [facility] Diagnosis 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 [facility] Diagnosis 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 History of follicular lymphoma CINV (chemotherapy-induced nausea and vomiting) Nausea with vomiting At high risk of tumor lysis syndrome Other specified conditions influencing health status documented in this encounter [facility] note* Diagnosis 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)- Primary documented in this encounter [facility] note* Diagnosis 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)- Primary documented in this encounter [facility] note* Diagnosis Encounter for antineoplastic chemotherapy- Primary 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) documented in this encounter [facility] note* Diagnosis Diffuse large B-cell lymphoma, unspecified body region (HCC)- Primary History of engineered cell therapy infusion Other specified personal history presenting hazards to health documented in this encounter [facility] note* Diagnosis 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)- Primary documented in this encounter [facility] note* Diagnosis History of engineered cell therapy infusion- Primary Other specified personal history presenting hazards to health 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) Pancytopenia (HCC) Other pancytopenia At risk for infection due to immunosuppression Immunodeficiency (HCC) Unspecified immunity deficiency At risk for fluid and electrolyte imbalance documented in this encounter [facility] note* Diagnosis Diffuse large B-cell lymphoma, unspecified body region (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 Other specified personal history presenting hazards to health documented in this encounter [facility] note* Diagnosis History of engineered cell therapy infusion- Primary Other specified personal history presenting hazards to health 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) Immunodeficiency (HCC) Unspecified immunity deficiency Other pancytopenia (HCC) Other pancytopenia documented in this encounter [facility] note* Diagnosis Complication of immune effector cellular therapy, initial encounter- Primary documented in this encounter [facility] Discharge instructions No data available for this section General Surgery [place] Progress note No data available for this section General Surgery [place] Reason for referral (narrative)* Outpatient Procedure (Routine) - Pending Review Specialty Diagnoses / Procedures Referred By Sergio astorga Ref[facility] To [facility] Diagnoses Non-Hodgkin lymphoma of lymph nodes of multiple regions, unspecified non-Hodgkin lymphoma type (HCC) DE DIOS (dyspnea on exertion) Procedures ECHO ECHO TTHRC R-T 2D W/WOM-MODE COMPL SPEC&COLR D Michael Boykin MD [address] [place] [address] [place] [address] [facility] [place] [address] [place] [address] Referral ID Status Reason Start Date Expiration Date Visits Requested Visits Authorized [id number] Pending Review Auto-Generat ed Referral 05/19/2023 05/18/2024 1 1 [facility] for referral (narrative)* Diagnostic Procedure Only (Routine) - Authorized Specialty Diagnoses / Procedures Referred By Contac Referred To Contact [facility]LECULAR [facility] FUNCTIONAL IMAGING Diagnoses 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) Procedures NM PET/CT SKULL-THIGH SUBSEQUENT PET IMAGING CT ATTENUATION SKULL BASE MID-THIGH Niesha Galdamez MD [address] [place] [address] [facility] [address] [place] [address] Referral ID Status Reason Start Date Expiration Date Visits Requested Visits Authorized [id number] Authorized Auto-Generat ed Referral 01/20/2024 02/18/2025 1 1 [facility] for referral (narrative)* Diagnostic Procedure Only (Routine) - Authorized Specialty Diagnoses / Procedures Referred By Contac Referred To Contact [facility] FUN[facility]AL [facility]AGING Diagnoses Diffuse large B-cell lymphoma, unspecified body region (HCC) Procedures NM PET/CT SKULL-THIGH SUBSEQUENT PET IMAGING CT ATTENUATION SKULL BASE MID-THIGH Niesha Galdamez MD [address] [place] [address] [facility] [address] [place] [address] Referral ID Status Reason Start Date Expiration Date Visits Requested Visits Authorized [id number] Authorized Auto-Generat ed Referral 02/18/2024 03/19/2025 1 1 * Consult, Test, Treat (Routine) - Authorized Specialty Diagnoses / Procedures Referred By Sergio t Referred To Contact Diagnoses 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) Procedures TAUSSIG FOLLOW-UP OFFICE/OUTPATIENT NEW HIGH MDM 60 MINUTES Niesha Galdamez MD [address] [place] [id number] Referral ID Status Reason Start Date Expiration Date Visits Requested Visits Authorized [id number] Authorized PCP Requested Referral 02/18/2024 02/17/2025 1 1 * Outpatient Procedure (Routine) - Authorized Specialty Diagnoses / Procedures Referred By Sergio t Referred To Contact [facility] Diagnoses 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) Encounter for monitoring cardiotoxic drug therapy Procedures ECHO ECHO TTHRC R-T 2D W/WOM-MODE COMPL SPEC&COLR D Niesha Galdamez MD [address] [place] [address] [facility] [address] [place] [address] Referral ID Status Reason Start Date Expiration Date Visits Requested Visits Authorized [id number] Authorized Auto-Generat ed Referral 02/18/2024 02/17/2025 1 1 * Outpatient Procedure (Routine) - Authorized Specialty Diagnoses / Procedures Referred By Sergio t Referred To Contact [facility] Diagnoses 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) Procedures ECG COMPLETE ECG ROUTINE ECG W/LEAST 12 LDS W/I&R Niesha Galdamez MD [address] [place] [address] [address] Referral ID Status Reason Start Date Expiration Date Visits Requested Visits Authorized [id number] Authorized Auto-Generat ed Referral 02/18/2024 02/17/2025 1 1 [facility] Diagnostic Procedure Only (Routine) - Pending Review Specialty Diagnoses / Procedures Referred By Sergio astorga Referred To Contact [facility]LECULAR [facility] FUNCTIONAL IMAGING Diagnoses Diffuse large B-cell lymphoma, unspecified body region (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 Procedures NM PET/CT SKULL-THIGH SUBSEQUENT PET IMAGING CT ATTENUATION SKULL BASE MID-THIGH Niesha Galdamez MD [address] [place] [address] [facility] [address] [place] [id number] Referral ID Status Reason Start Date Expiration Date Visits Requested Visits Authorized [id number] Pending Review Auto-Generat ed Referral 04/06/2024 05/06/2025 1 1 [facility] Assessments Diagnosis Non-Hodgkin's lymphoma, unspecified body region, unspecified non-Hodgkin lymphoma type (HCC) Hypothyroidism, unspecified type Encounter for screening for lung cancer Advance Directives No Advanced Directives Records FoundDocuments on File Type Date Recorded Patient Quality Control Projectionist Expl anation Advance Directives and Living Will Power of Campground Caretaker Documents on File Type Date Recorded Patient Quality Control Projectionist Expl anation ACP-Advance Directive ACP-Power of Campground Caretaker Date Activated Date Inactivated Comments 04/15/2024 2:33 AM 04/17/2024 6:17 PM Question Answer Comments Full Code Order Discussed With: Patient Summary Purpose Family History No Family History Records Found No data available for this section No Family History Records FoundNo Family History Records Found No data available for this section No Family History Records Found Reason for Referral Specialty Diagnoses / Procedures Referred By Sergio astorga Referred To Contact Diagnoses Follicular lymphoma grade IIIa, unspecified body region (HCC) Procedures CT SIM PLANNING RADIATION ONCOLOGY THER RAD SIMULAJ-AIDED FIELD SETTING COMPLEX Viviana Varela MD [address] [place] [address] [place] [address] Referral ID Status Reason Start Date Expiration Date Visits Requested Visits Authorized [id number] Pending Review PCP Requested Referral 03/15/2024 06/13/2024 1 1 Specialty Diagnoses / Procedures Referred By Contac t Referred To Contact Diagnoses 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) Procedures CONSULT TO HEMATOLOGY/ONCOLOGY OFFICE/OUTPATIENT [facility] 60-74 MINUTES Michael Boykin MD [address] [place] [address] [place] [address] Referral ID Status Reason Start Date Expiration Date Visits Requested Visits Authorized [id number] Authorized PCP Requested Referral 05/22/2023 05/21/2024 1 [...] Minutes, ONCE, 1 dose, On Fri07/08/23 at 929, EXP:145 Hazardous Chemotherapy Drug: Use appropriate PPE. Antineoplastic Irritant. Refrigerate. Product dispensed: BELRAPZO New Bag/Syringe/Bottle 07/08/2023 12:54 PM EDT 175.5 mg dexAMETHasone 10 mg in NaCl 0.9% 50 mL (DECADRON) 10 mg, INTRAVENOUS, ONCE, 1 dose, On Fri07/08/23 at 929, Refrigerate. New Bag/Syringe/Bottle 07/08/2023 9:35 AM EDT 10 mg diphenhydrAMINE 50 mg (BENADRYL) 50 mg, ORAL, ONCE, 1 dose, On Fri07/08/23 at 929, Give 30 minutes prior to infusion. Given [...] ONCE, 1 dose, On Fri07/08/23 at 0930, EXP:_[id number] Infuse at rate of 100mg/hr. If [...] content) DATE CREATED AUTHOR 04/11/2023 [facility] DATE CREATED AUTHOR AUTHOR'S ORGANIZ ATION 02/03/2024 [facility] DATE CREATED AUTHOR AUTHOR'S ORGANIZ ATION 06/05/2024 [facility] DATE CREATED AUTHOR AUTHOR'S ORGANIZ ATION 06/10/[address] [facility] Patient Care team informatio n (unrecognized section and content) Rn Obgyn Relationship Specialty Start Date End Date Cleo Feliz, STUCCO PLASTERER.DIVERSIFIED CROPS II FARMWORKER [address] [facility] [place] [address] Nurse Practitioner Hematology/Oncology 06/05/23 Michael Boykin MD [address] [facility] [place] [address] Physician Hematology/Oncology 06/05/23 Ivania Jackman, STEVE [address] [place] [place] [address] Specialty Customer Equipment Engineer Hematology/Oncology 06/05/23 Rn Obgyn Relationship Specialty Start Date End Date Cleo Feliz, STUCCO PLASTERER.DIVERSIFIED CROPS II FARMWORKER [address] [facility] [place] [address] Nurse Practitioner Hematology/Oncology 06/05/23 Michael Boykin MD [address] [facility] [address] [place], [place] [id number] Physician Hematology/Oncology 06/05/23 Ivania Jackman, STEVE [address] [facility] [place] [address] Specialty Customer Equipment Engineer Hematology/Oncology 06/05/23 Rn Obgyn Relationship Specialty Start Date End Date Cleo Feliz, STUCCO PLASTERER.DIVERSIFIED CROPS II FARMWORKER [address] [facility] [place] [address] Nurse Practitioner Hematology/Oncology 06/05/23 Michael Boykin MD [address] [facility] [place] [address] Physician Hematology/Oncology 06/05/23 Ivania Jackman, STEVE [address] [facility] [place] [address] Specialty Customer Equipment Engineer Hematology/Oncology 06/05/23 Rn Obgyn Relationship Specialty Start Date End Date Cleo Feliz, STUCCO PLASTERER.DIVERSIFIED CROPS II FARMWORKER [address] [facility] [place] [address] Nurse Practitioner Hematology/Oncology 06/05/23 Michael Boykin MD [address] [facility] [place] [address] Physician Hematology/Oncology 06/05/23 Ivania Jackman, RN [address] [facility] [address] Specialty Customer Equipment Engineer Hematology/Oncology 06/05/23 Rn Obgyn Relationship Specialty Start Date End Date Cleo Feliz, STUCCO PLASTERER.DIVERSIFIED CROPS II FARMWORKER [address] [facility] [place] [address] Nurse Practitioner Hematology/Oncology 06/05/23 Michael Boykin MD [address] [facility] [place] [address] Physician Hematology/Oncology 06/05/23 Ivania Jackman, STEVE [address] [facility] [address] Specialty Customer Equipment Engineer Hematology/Oncology 06/05/23 Rn Obgyn Relationship Specialty Start Date End Date Cleo Feliz, STUCCO PLASTERER.DIVERSIFIED CROPS II FARMWORKER [address] [facility] [address] Nurse Practitioner Hematology/Oncology 06/05/23 Michael Boykin MD [address] [facility] [address] Physician Hematology/Oncology 06/05/23 Ivania Jackman, STEVE [address] [facility] [place] [address] Specialty Customer Equipment Engineer Hematology/Oncology 06/05/23 Rn Obgyn Relationship Specialty Start Date End Date Cleo Feliz, STUCCO PLASTERER.DIVERSIFIED CROPS II FARMWORKER [address] [facility] [place] [address] Nurse Practitioner Hematology/Oncology 06/05/23 Michael Boykin MD [address] [facility] [address] Physician Hematology/Oncology 06/05/23 Ivania Jackman, RN [address] [facility] [address] Specialty Customer Equipment Engineer Hematology/Oncology 06/05/23 Rn Obgyn Relationship Specialty Start Date End Date Cleo Feliz, STUCCO PLASTERER.DIVERSIFIED CROPS II FARMWORKER [address] [facility] [place] [address] Nurse Practitioner Hematology/Oncology 06/05/23 Michael Boykin MD [address] [place] [address] Physician Hematology/Oncology 06/05/23 Ivania Jackman, RN [address] [facility] [place] [address] Specialty Customer Equipment Engineer Hematology/Oncology 06/05/23 Rn Obgyn Relationship Specialty Start Date End Date Cleo Feliz, STUCCO PLASTERER.DIVERSIFIED CROPS II FARMWORKER [address] [facility] [place] [address] Nurse Practitioner Hematology/Oncology 06/05/23 Michael Boykin MD [address] [facility] [place] [address] Physician Hematology/Oncology 06/05/23 Ivania Jackman, STEVE [address] [facility] [place] [address] Specialty Customer Equipment Engineer Hematology/Oncology 06/05/23 Rn Obgyn Relationship Specialty Start Date End Date Cleo Feliz, STUCCO PLASTERER.DIVERSIFIED CROPS II FARMWORKER [address] [facility] [place] [address] Nurse Practitioner Hematology/Oncology 06/05/23 Michael Boykin MD [address] [facility] [place] [address] Physician Hematology/Oncology 06/05/23 Ivania Jackman, RN [address] [facility] [place] [address] Specialty Customer Equipment Engineer Hematology/Oncology 06/05/23 Rn Obgyn Relationship Specialty Start Date End Date Cleo Feliz, STUCCO PLASTERER.DIVERSIFIED CROPS II FARMWORKER [address] [facility] [place] [address] Nurse Practitioner Hematology/Oncology 06/05/23 Michael Boykin MD [address] [facility] [address] Physician Hematology/Oncology 06/05/23 Ivania Jackman, RN [address] [facility] [place] [address] Specialty Customer Equipment Engineer Hematology/Oncology 06/05/23 Rn Obgyn Relationship Specialty Start Date End Date Cleo Feliz, STUCCO PLASTERER.DIVERSIFIED CROPS II FARMWORKER [address] [facility] [place] [address] Nurse Practitioner Hematology/Oncology 06/05/23 Michael Boykin MD [address] [facility] [place] [address] Physician Hematology/Oncology 06/05/23 Ivania Jackman, RN [address] [facility] [place] [address] Specialty Customer Equipment Engineer Hematology/Oncology 06/05/23 Rn Obgyn Relationship Specialty Start Date End Date Cleo Feliz, STUCCO PLASTERER.DIVERSIFIED CROPS II FARMWORKER [address] [facility] [place] [address] Nurse Practitioner Hematology/Oncology 06/05/23 Michael Boykin MD [address] [facility] [address] Physician Hematology/Oncology 06/05/23 Ivania Jackman, RN [address] [facility] [place] [address] Specialty Customer Equipment Engineer Hematology/Oncology 06/05/23 Rn Obgyn Relationship Specialty Start Date End Date Cleo Feliz, STUCCO PLASTERER.DIVERSIFIED CROPS II FARMWORKER [address] [place] [address] Nurse Practitioner Hematology/Oncology 06/05/23 Michael Boykin MD [address] [place] [address] Physician Hematology/Oncology 06/05/23 Ivania Jackman, STEVE [address] [facility] [place] [address] Specialty Customer Equipment Engineer Hematology/Oncology 06/05/23 Rn Obgyn Relationship Specialty Start Date End Date Cleo Feliz, STUCCO PLASTERER.DIVERSIFIED CROPS II FARMWORKER [address] [place] [address] Nurse Practitioner Hematology/Oncology 06/05/23 Michael Boykin MD [address] [place] [address] Physician Hematology/Oncology 06/05/23 Ivania Jackman, RN [address] [facility] [place] [address] Specialty Customer Equipment Engineer Hematology/Oncology 06/05/23 Rn Obgyn Relationship Specialty Start Date End Date Cleo Feliz, STUCCO PLASTERER.DIVERSIFIED CROPS II FARMWORKER [address] [facility] [place] [address] Nurse Practitioner Hematology/Oncology 06/05/23 Michael Boykin MD [address] [facility] [place] [address] Physician Hematology/Oncology 06/05/23 Ivania Jackman, RN [address] [facility] [place] [address] Specialty Customer Equipment Engineer Hematology/Oncology 06/05/23 Rn Obgyn Relationship Specialty Start Date End Date Cleo Feliz, STUCCO PLASTERER.DIVERSIFIED CROPS II FARMWORKER [address] [facility] [place] [address] Nurse Practitioner Hematology/Oncology 06/05/23 Michael Boykin MD [address] [facility] [place] [address] Physician Hematology/Oncology 06/05/23 Ivania Jackman RN [address] [facility] [address] Specialty Customer Equipment Engineer Hematology/Oncology 06/05/23 Rn Obgyn Relationship Specialty Start Date End Date Cleo Feliz, STUCCO PLASTERER.DIVERSIFIED CROPS II FARMWORKER [address] [facility] [address] Nurse Practitioner Hematology/Oncology 06/05/23 Michael Boykin MD [address] [facility] [address] Physician Hematology/Oncology 06/05/23 Ivania Jackman, RN [address] [facility] [address] Specialty Customer Equipment Engineer Hematology/Oncology 06/05/23 Rn Obgyn Relationship Specialty Start Date End Date Cleo Feliz, STUCCO PLASTERER.DIVERSIFIED CROPS II FARMWORKER [address] [facility] [address] Nurse Practitioner Hematology/Oncology 06/05/23 Michael Boykin MD [address] [facility] [place] [address] Physician Hematology/Oncology 06/05/23 Ivania Jackman, STEVE [address] [facility] [place] [address] Specialty Customer Equipment Engineer Hematology/Oncology 06/05/23 Rn Obgyn Relationship Specialty Start Date End Date Cleo Feliz, STUCCO PLASTERER.DIVERSIFIED CROPS II FARMWORKER [address] [facility] [place] [address] Nurse Practitioner Hematology/Oncology 06/05/23 Michael Boykin MD [address] [facility] [place] [address] Physician Hematology/Oncology 06/05/23 Ivania Jackman, RN [address] [facility] [place] [address] Specialty Customer Equipment Engineer Hematology/Oncology 06/05/23 Rn Obgyn Relationship Specialty Start Date End Date Cleo Feliz, STUCCO PLASTERER.DIVERSIFIED CROPS II FARMWORKER [address] [facility] [address] Nurse Practitioner Hematology/Oncology 06/05/23 Michael Boykin MD [address] [facility] [address] Physician Hematology/Oncology 06/05/23 Ivania Jackman, RN [address] [facility] [place] [address] Specialty Customer Equipment Engineer Hematology/Oncology 06/05/23 Rn Obgyn Relationship Specialty Start Date End Date Dorcas Bolanos MD [address] [place] [address] Hematology 01/07/24 Niesha Galdamez MD [address] [place] [address] Hematology and Oncology 01/08/24 Michael Boykin MD [address] [place] [address] [address] [place] [id number] Hematology and Oncology 01/08/24 Rn Obgyn Relationship Specialty Start Date End Date Emelia Gonzalez MD [address] [place] [id number] PCP - General Hematology/Oncology 02/02/24 Cleo Feliz, STUCCO PLASTERER.DIVERSIFIED CROPS II FARMWORKER [address] [place] [address] [address] [place] [id number] Nurse Practitioner Hematology/Oncology 06/05/23 Michael Boykin MD [address] [place] [address] [address] [place] [id number] Physician Hematology/Oncology 06/05/23 Ivania Jackman, STEVE [address] [place] [address] [address] [place] [id number] Specialty Customer Equipment Engineer Hematology/Oncology 06/05/23 Rn Obgyn Relationship Specialty Start Date End Date Emelia Gonzalez MD [address] [place] [address] PCP - General Hematology/Oncology 02/02/24 Cleo Feliz, STUCCO PLASTERER.DIVERSIFIED CROPS II FARMWORKER [address] [facility] [place] [address] Nurse Practitioner Hematology/Oncology 06/05/23 Michael Boykin MD [address] [facility] [place] [address] Physician Hematology/Oncology 06/05/23 Ivania Jackman, RN [address] [facility] [place] [address] Specialty Customer Equipment Engineer Hematology/Oncology 06/05/23 Rn Obgyn Relationship Specialty Start Date End Date Emelia Gonzalez MD [address] [place], [place] [id number] PCP - General Hematology/Oncology 02/02/24 Cleo Feliz, STUCCO PLASTERER.DIVERSIFIED CROPS II FARMWORKER [address] [facility] [place] [address] Nurse Practitioner Hematology/Oncology 06/05/23 Michael Boykin MD [address] [facility] [place] [address] Physician Hematology/Oncology 06/05/23 Ivania Jackman, RN [address] [facility] [place] [address] Specialty Customer Equipment Engineer Hematology/Oncology 06/05/23 Rn Obgyn Relationship Specialty Start Date End Date Emelia Gonzalez MD [address] [place] [address] PCP - General Hematology/Oncology 02/02/24 Cleo Feliz, STUCCO PLASTERER.DIVERSIFIED CROPS II FARMWORKER [address] [facility] [address] Nurse Practitioner Hematology/Oncology 06/05/23 Michael Boykin MD [address] [facility] [place] [address] Physician Hematology/Oncology 06/05/23 Ivania Jackman, RN [address] [facility] [place] [address] Specialty Customer Equipment Engineer Hematology/Oncology 06/05/23 Rn Obgyn Relationship Specialty Start Date End Date Emelia Gonzalez MD [address] [place] [address] PCP - General Hematology/Oncology 02/02/24 Cleo Feliz, STUCCO PLASTERER.DIVERSIFIED CROPS II FARMWORKER [address] [facility] [place] [address] Nurse Practitioner Hematology/Oncology 06/05/23 Michael Boykin MD [address] [facility] [place] [address] Physician Hematology/Oncology 06/05/23 Ivania Jackman, STEVE [address] [facility] [place] [address] Specialty Customer Equipment Engineer Hematology/Oncology 06/05/23 Rn Obgyn Relationship Specialty Start Date End Date Emelia Gonzalez MD [address] [place] [address] PCP - General Hematology/Oncology 02/02/24 Cleo Feliz, STUCCO PLASTERER.DIVERSIFIED CROPS II FARMWORKER [address] [facility] [place] [address] Nurse Practitioner Hematology/Oncology 06/05/23 Michael Boykin MD [address] [facility] [place] [address] Physician Hematology/Oncology 06/05/23 Ivania Jackman, STEVE [address] [facility] [address] Specialty Customer Equipment Engineer Hematology/Oncology 06/05/23 Rn Obgyn Relationship Specialty Start Date End Date Cleo Feliz, STUCCO PLASTERER.DIVERSIFIED CROPS II FARMWORKER [address] [facility] [address] Nurse Practitioner Hematology/Oncology 06/05/23 Michael Boykin MD [address] [facility] [address] Physician Hematology/Oncology 06/05/23 Ivania Jackman, STEVE [address] [facility] [place] [address] Specialty Customer Equipment Engineer Hematology/Oncology 06/05/23 Krystyna Hernandez LISW [address] [place] [address] Blood and Marrow Transplant 02/23/24 Rn Obgyn Relationship Specialty Start Date End Date Cleo Feliz, STUCCO PLASTERER.DIVERSIFIED CROPS II FARMWORKER [address] [facility] [address] Nurse Practitioner Hematology/Oncology 06/05/23 Michael Boykin MD [address] [facility] [address] Physician Hematology/Oncology 06/05/23 Ivania Jackman, STEVE [address] [facility] [place] [address] Specialty Customer Equipment Engineer Hematology/Oncology 06/05/23 Krystyna Hernandez LISW [address] [place] [address] Blood and Marrow Transplant 02/23/24 Rn Obgyn Relationship Specialty Start Date End Date Cleo Feliz, STUCCO PLASTERER.DIVERSIFIED CROPS II FARMWORKER [address] [facility] [address] Nurse Practitioner Hematology/Oncology 06/05/23 Michael Boykin MD [address] [facility] [place] [address] Physician Hematology/Oncology 06/05/23 Ivania Jackman, STEVE [address] [facility] [place] [address] Specialty Customer Equipment Engineer Hematology/Oncology 06/05/23 Krystyna Hernandez LISW [address] [place] [address] Blood and Marrow Transplant 02/23/24 Rn Obgyn Relationship Specialty Start Date End Date Cleo Feliz, STUCCO PLASTERER.DIVERSIFIED CROPS II FARMWORKER [address] [facility] [address] Nurse Practitioner Hematology/Oncology 06/05/23 Michael Boykin MD [address] [facility] [place] [address] Physician Hematology/Oncology 06/05/23 Ivania Jackman, STEVE [address] [facility] [address] Specialty Customer Equipment Engineer Hematology/Oncology 06/05/23 Krystyna Hernandez LISW [address] [place] [address] Blood and Marrow Transplant 02/23/24 Rn Obgyn Relationship Specialty Start Date End Date Cleo Feliz, STUCCO PLASTERER.DIVERSIFIED CROPS II FARMWORKER [address] [facility] [address] Nurse Practitioner Hematology/Oncology 06/05/23 Michael Boykin MD [address] [facility] [address] Physician Hematology/Oncology 06/05/23 Ivania Jackman, RN [address] [facility] [address] Specialty Customer Equipment Engineer Hematology/Oncology 06/05/23 Krystyna Hernandez LISW [address] [place] [address] Blood and Marrow Transplant 02/23/24 Rn Obgyn Relationship Specialty Start Date End Date Cleo Feliz, STUCCO PLASTERER.DIVERSIFIED CROPS II FARMWORKER [address] [facility] [address] Nurse Practitioner Hematology/Oncology 06/05/23 Michael Boykin MD [address] [facility] [address] Physician Hematology/Oncology 06/05/23 Ivania Jackman, RN [address] [facility] [address] Specialty Customer Equipment Engineer Hematology/Oncology 06/05/23 Krystyna Hernandez LISW [address] [place] [address] Blood and Marrow Transplant 02/23/24 Rn Obgyn Relationship Specialty Start Date End Date Cleo Feliz, STUCCO PLASTERER.DIVERSIFIED CROPS II FARMWORKER [address] [facility] [address] Nurse Practitioner Hematology/Oncology 06/05/23 Michael Boykin MD [address] [place] [address] Physician Hematology/Oncology 06/05/23 Ivania Jackman, STEVE [address] [facility] [place] [address] Specialty Customer Equipment Engineer Hematology/Oncology 06/05/23 Krystyna Hernandez, [facility] [address] [place] [address] Blood and Marrow Transplant 02/23/24 Rn Obgyn Relationship Specialty Start Date End Date Cleo Feliz, STUCCO PLASTERER.DIVERSIFIED CROPS II FARMWORKER [address] [facility] [place] [address] Nurse Practitioner Hematology/Oncology 06/05/23 Michael Boykin MD [address] [facility] [place] [address] Physician Hematology/Oncology 06/05/23 Ivania Jackman RN [address] [facility] [place] [address] Specialty Customer Equipment Engineer Hematology/Oncology 06/05/23 Krystyna Hernandez, [facility] [address] [place] [address] Blood and Marrow Transplant 02/23/24 Rn Obgyn Relationship Specialty Start Date End Date Cleo Feliz, STUCCO PLASTERER.DIVERSIFIED CROPS II FARMWORKER [address] [facility] [place] [address] Nurse Practitioner Hematology/Oncology 06/05/23 Michael Boykin MD [address] [facility] [place] [address] Physician Hematology/Oncology 06/05/23 Ivania Jackman, STEVE [address] [facility] [place] [address] Specialty Customer Equipment Engineer Hematology/Oncology 06/05/23 Krystyna Hernandez LISW [address] [place] [address] Blood and Marrow Transplant 02/23/24 Rn Obgyn Relationship Specialty Start Date End Date Cleo Feliz, STUCCO PLASTERER.DIVERSIFIED CROPS II FARMWORKER [address] [facility] [address] Nurse Practitioner Hematology/Oncology 06/05/23 Michael Boykin MD [address] [facility] [place] [address] Physician Hematology/Oncology 06/05/23 Ivania Jackman, STEVE [address] [facility] [place] [place] [address] Specialty Customer Equipment Engineer Hematology/Oncology 06/05/23 Krystyna Hernandez LISW [address] [place] [address] Blood and Marrow Transplant 02/23/24 Rn Obgyn Relationship Specialty Start Date End Date Cleo Feliz, STUCCO PLASTERER.DIVERSIFIED CROPS II FARMWORKER [address] [facility] [place] [address] Nurse Practitioner Hematology/Oncology 06/05/23 Michael Boykin MD [address] [facility] [place] [address] Physician Hematology/Oncology 06/05/23 Ivania Jackman, STEVE [address] [facility] [address] Specialty Customer Equipment Engineer Hematology/Oncology 06/05/23 Krystyna Hernandez LISW [address] [place] [address] Blood and Marrow Transplant 02/23/24 Rn Obgyn Relationship Specialty Start Date End Date Cleo Feliz, STUCCO PLASTERER.DIVERSIFIED CROPS II FARMWORKER [address] [facility] [place] [address] Nurse Practitioner Hematology/Oncology 06/05/23 Michael Boykin MD [address] [facility] [address] Physician Hematology/Oncology 06/05/23 Ivania Jackman, STEVE [address] [facility] [place] [address] Specialty Customer Equipment Engineer Hematology/Oncology 06/05/23 Krystyna Hernandez LISW [address] [place] [address] Blood and Marrow Transplant 02/23/24 Rn Obgyn Relationship Specialty Start Date End Date Cleo Feliz, STUCCO PLASTERER.DIVERSIFIED CROPS II FARMWORKER [address] [facility] [place] [address] Nurse Practitioner Hematology/Oncology 06/05/23 Michael Boykin MD [address] [facility] [place] [address] Physician Hematology/Oncology 06/05/23 Ivania Jackman, STEVE [address] [facility] [place] [address] Specialty Customer Equipment Engineer Hematology/Oncology 06/05/23 Krystyna Hernandez LISW [address] [place] [address] Blood and Marrow Transplant 02/23/24 Rn Obgyn Relationship Specialty Start Date End Date Cleo Feliz, STUCCO PLASTERER.DIVERSIFIED CROPS II FARMWORKER [address] [facility] [place] [address] Nurse Practitioner Hematology/Oncology 06/05/23 Michael Boykin MD [address] [facility] [address] Physician Hematology/Oncology 06/05/23 Ivania Jackman, STEVE [address] [facility] [place] [address] Specialty Customer Equipment Engineer Hematology/Oncology 06/05/23 Krystyna Hernandez LISW [address] [place] [address] Blood and Marrow Transplant 02/23/24 Martina Marshall RN [address] [address] Specialty Customer Equipment Engineer Blood and Marrow Transplant 04/06/24 07/05/24 [place] [address] [place] [address] Physician Blood and Marrow Transplant 04/06/24 Rn Obgyn Relationship Specialty Start Date End Date Cleo Feliz, STUCCO PLASTERER.DIVERSIFIED CROPS II FARMWORKER [address] [facility] [place] [address] Nurse Practitioner Hematology/Oncology 06/05/23 Michael Boykin MD [address] [facility] [address] Physician Hematology/Oncology 06/05/23 Ivania Jackman, RN [address] [facility] [place] [place] [address] Specialty Customer Equipment Engineer Hematology/Oncology 06/05/23 Krystyna Hernandez LISW [address] [place] [address] Blood and Marrow Transplant 02/23/24 Martina Marshall RN [address] [address] Specialty Customer Equipment Engineer Blood and Marrow Transplant 04/06/24 07/05/24 [place] [address] [place] [id number] Physician Blood and Marrow Transplant 04/06/24 Rn Obgyn Relationship Specialty Start Date End Date Cleo Feliz, STUCCO PLASTERER.DIVERSIFIED CROPS II FARMWORKER [address] [facility] [place] [address] Nurse Practitioner Hematology/Oncology 06/05/23 Michael Boykin MD [address] [facility] [place] [address] Physician Hematology/Oncology 06/05/23 Ivania Jackman, STEVE [address] [facility] [place] [place] [address] Specialty Customer Equipment Engineer Hematology/Oncology 06/05/23 Krystyna Hernandez LISW [address] [place] [address] Blood and Marrow Transplant 02/23/24 Martina Marshall RN [address] [address] Specialty Customer Equipment Engineer Blood and Marrow Transplant 04/06/24 07/05/24 [place] [address] [place] [id number] Physician Blood and Marrow Transplant 04/06/24 Rn Obgyn Relationship Specialty Start Date End Date Cleo Feliz, STUCCO PLASTERER.DIVERSIFIED CROPS II FARMWORKER [address] [facility] [place] [address] Nurse Practitioner Hematology/Oncology 06/05/23 Michael Boykin MD [address] [place] [address] [place] [address] Physician Hematology/Oncology 06/05/23 Ivania Jackman, STEVE [address] [facility] [place] [place] [address] Specialty Customer Equipment Engineer Hematology/Oncology 06/05/23 Krystyna Hernandez LISW [address] [place] [address] Blood and Marrow Transplant 02/23/24 Martina Marshall RN [address] [address] Specialty Customer Equipment Engineer Blood and Marrow Transplant 04/06/24 07/05/24 [place] [address] [place] [address] Physician Blood and Marrow Transplant 04/06/24 Rn Obgyn Relationship Specialty Start Date End Date Cleo Feliz, STUCCO PLASTERER.DIVERSIFIED CROPS II FARMWORKER [address] [facility] [place] [address] Nurse Practitioner Hematology/Oncology 06/05/23 Michael Boykin MD [address] [place] [address] [place] [address] Physician Hematology/Oncology 06/05/23 Ivania Jackman, STEVE [address] [facility] [place] [place] [address] Specialty Customer Equipment Engineer Hematology/Oncology 06/05/23 Krystyna Hernandez LISW [address] [place] [address] Blood and Marrow Transplant 02/23/24 Martina Marshall RN [address] [address] Specialty Customer Equipment Engineer Blood and Marrow Transplant 04/06/24 07/05/24 [place] [address] [place] [address] Physician Blood and Marrow Transplant 04/06/24 Rn Obgyn Relationship Specialty Start Date End Date Cleo Feliz, STUCCO PLASTERER.DIVERSIFIED CROPS II FARMWORKER [address] [facility] [address] Nurse Practitioner Hematology/Oncology 06/05/23 Michael Boykin MD [address] [facility] [place] [address] Physician Hematology/Oncology 06/05/23 Ivania Jackman, STEVE [address] [facility] [place] [address] Specialty Customer Equipment Engineer Hematology/Oncology 06/05/23 Krystyna Hernandez LISW [address] [place] [address] Blood and Marrow Transplant 02/23/24 Martina Marshall RN [address] [address] Specialty Customer Equipment Engineer Blood and Marrow Transplant 04/06/24 07/05/24 [place] [address] [place] [address] Physician Blood and Marrow Transplant 04/06/24 Rn Obgyn Relationship Specialty Start Date End Date Cleo Feliz, STUCCO PLASTERER.DIVERSIFIED CROPS II FARMWORKER [address] [facility] [address] Nurse Practitioner Hematology/Oncology 06/05/23 Michael Boykin MD [address] [facility] [place] [address] Physician Hematology/Oncology 06/05/23 Ivania Jackman, STEVE [address] [facility] [place] [place] [address] Specialty Customer Equipment Engineer Hematology/Oncology 06/05/23 Krystyna Hernandez LISW [address] [place] [address] Blood and Marrow Transplant 02/23/24 Martina Marshall RN [address] [address] Specialty Customer Equipment Engineer Blood and Marrow Transplant 04/06/24 07/05/24 [place] [address] [place] [address] Physician Blood and Marrow Transplant 04/06/24 Rn Obgyn Relationship Specialty Start Date End Date Cleo Feliz, STUCCO PLASTERER.DIVERSIFIED CROPS II FARMWORKER [address] [facility] [place] [address] Nurse Practitioner Hematology/Oncology 06/05/23 Michael Boykin MD [address] [facility] [place] [address] Physician Hematology/Oncology 06/05/23 Ivania Jackman, STEVE [address] [facility] [place] [place] [address] Specialty Customer Equipment Engineer Hematology/Oncology 06/05/23 Krystyna Hernandez LISW [address] [place], [place] [id number] Blood and Marrow Transplant 02/23/24 Martina Marshall RN [address] [id number] Specialty Customer Equipment Engineer Blood and Marrow Transplant 04/06/24 07/05/24 [place] [address] [place] [address] Physician Blood and Marrow Transplant 04/06/24 Rn Obgyn Relationship Specialty Start Date End Date Cleo Feliz, STUCCO PLASTERER.DIVERSIFIED CROPS II FARMWORKER [address] [facility] [place] [address] Nurse Practitioner Hematology/Oncology 06/05/23 Michael Boykin MD [address] [facility] [place] [address] Physician Hematology/Oncology 06/05/23 Ivania Jackman, STEVE [address] [facility] [place] [address] Specialty Customer Equipment Engineer Hematology/Oncology 06/05/23 Krystyna Hernandez LISW [address] [place] [address] Blood and Marrow Transplant 02/23/24 Martina Marshall RN [address] [address] Specialty Customer Equipment Engineer Blood and Marrow Transplant 04/06/24 07/05/24 [place] [address] [place] [address] Physician Blood and Marrow Transplant 04/06/24 Rn Obgyn Relationship Specialty Start Date End Date Cleo Feliz, STUCCO PLASTERER.DIVERSIFIED CROPS II FARMWORKER [address] [facility] [place] [address] Nurse Practitioner Hematology/Oncology 06/05/23 Michael Boykin MD [address] [facility] [place] [address] Physician Hematology/Oncology 06/05/23 Ivania Jackman, RN [address] [facility] [place] [address] Specialty Customer Equipment Engineer Hematology/Oncology 06/05/23 Krystyna Hernandez LISW-S [address] [place] [address] Blood and Marrow Transplant 02/23/24 Martina Marshall RN [address] [address] Specialty Customer Equipment Engineer Blood and Marrow Transplant 04/06/24 07/05/24 [place] [address] [place] [address] Physician Blood and Marrow Transplant 04/06/24 Rn Obgyn Relationship Specialty Start Date End Date Cleo Feliz, STUCCO PLASTERER.DIVERSIFIED CROPS II FARMWORKER [address] [facility] [place] [address] Nurse Practitioner Hematology/Oncology 06/05/23 Michael Boykin MD [address] [place] [address] Physician Hematology/Oncology 06/05/23 Ivania Jackman, STEVE [address] [place] [address] Specialty Customer Equipment Engineer Hematology/Oncology 06/05/23 Krystyna Hernandez LISW-S [address] [place] [address] Blood and Marrow Transplant 02/23/24 Martina Marshall RN [address] [address] Specialty Customer Equipment Engineer Blood and Marrow Transplant 04/06/24 07/05/24 [place] [id number] [place] [address] Physician Blood and Marrow Transplant 04/06/24 Source Comments (unrecognize d section and content) In the event this informatio n is protected by the Federal Confidentiality of Alcohol and Drug Abuse Patient Records regulations: The Federal rules restrict any use of the information to criminally investigate or prosecute any alcohol or drug abuse patient.[facility]In the event this information is protected by the Federal Confidentiality of Alcohol and Drug Abuse Patient Records regulations: The Federal rules restrict any use of the information to criminally investigate or prosecute any alcohol or drug abuse patient.[facility] HospitalIn the event this information is protected by the Federal Confidentiality of Alcohol and Drug Abuse Patient Records regulations: The Federal rules restrict any use of the information to criminally investigate or prosecute any alcohol or drug abuse patient.[facility] HospitalIn the event this information is protected by the Federal Confidentiality of Alcohol and Drug Abuse Patient Records regulations: The Federal rules restrict any use of the information to criminally investigate or prosecute any alcohol or drug abuse patient.[facility] HospitalIn the event this information is protected by the Federal Confidentiality of Alcohol and Drug Abuse Patient Records regulations: The Federal rules restrict any use of the information to criminally investigate or prosecute any alcohol or drug abuse patient.[facility] HospitalIn the event this information is protected by the Federal Confidentiality of Alcohol and Drug Abuse Patient Records regulations: The Federal rules restrict any use of the information to criminally investigate or prosecute any alcohol or drug abuse patient.[facility] HospitalIn the event this information is protected by the Federal Confidentiality of Alcohol and Drug Abuse Patient Records regulations: The Federal rules restrict any use of the information to criminally investigate or prosecute any alcohol or drug abuse patient.[facility] HospitalIn the event this information is protected by the Federal Confidentiality of Alcohol and Drug Abuse Patient Records regulations: The Federal rules restrict any use of the information to criminally investigate or prosecute any alcohol or drug abuse patient.[facility] HospitalIn the event this information is protected by the Federal Confidentiality of Alcohol and Drug Abuse Patient Records regulations: The Federal rules restrict any use of the information to criminally investigate or prosecute any alcohol or drug abuse patient.[facility] HospitalIn the event this information is protected by the Federal Confidentiality of Alcohol and Drug Abuse Patient Records regulations: The Federal rules restrict any use of the information to criminally investigate or prosecute any alcohol or drug abuse patient.[facility] HospitalIn the event this information is protected by the Federal Confidentiality of Alcohol and Drug Abuse Patient Records regulations: The Federal rules restrict any use of the information to criminally investigate or prosecute any alcohol or drug abuse patient.[facility] HospitalIn the event this information is protected by the Federal Confidentiality of Alcohol and Drug Abuse Patient Records regulations: The Federal rules restrict any use of the information to criminally investigate or prosecute any alcohol or drug abuse patient.[facility] HospitalIn the event this information is protected by the Federal Confidentiality of Alcohol and Drug Abuse Patient Records regulations: The Federal rules restrict any use of the information to criminally investigate or prosecute any alcohol or drug abuse patient.[facility] HospitalIn the event this information is protected by the Federal Confidentiality of Alcohol and Drug Abuse Patient Records regulations: The Federal rules restrict any use of the information to criminally investigate or prosecute any alcohol or drug abuse patient.[facility] HospitalIn the event this information is protected by the Federal Confidentiality of Alcohol and Drug Abuse Patient Records regulations: The Federal rules restrict any use of the information to criminally investigate or prosecute any alcohol or drug abuse patient.[facility] HospitalIn the event this information is protected by the Federal Confidentiality of Alcohol and Drug Abuse Patient Records regulations: The Federal rules restrict any use of the information to criminally investigate or prosecute any alcohol or drug abuse patient.[facility] HospitalIn the event this information is protected by the Federal Confidentiality of Alcohol and Drug Abuse Patient Records regulations: The Federal rules restrict any use of the information to criminally investigate or prosecute any alcohol or drug abuse patient.[facility] HospitalIn the event this information is protected by the Federal Confidentiality of Alcohol and Drug Abuse Patient Records regulations: The Federal rules restrict any use of the information to criminally investigate or prosecute any alcohol or drug abuse patient.[facility] HospitalIn the event this information is protected by the Federal Confidentiality of Alcohol and Drug Abuse Patient Records regulations: The Federal rules restrict any use of the information to criminally investigate or prosecute any alcohol or drug abuse patient.[facility] HospitalIn the event this information is protected by the Federal Confidentiality of Alcohol and Drug Abuse Patient Records regulations: The Federal rules restrict any use of the information to criminally investigate or prosecute any alcohol or drug abuse patient.[facility] HospitalIn the event this information is protected by the Federal Confidentiality of Alcohol and Drug Abuse Patient Records regulations: The Federal rules restrict any use of the information to criminally investigate or prosecute any alcohol or drug abuse patient.[facility] HospitalIn the event this information is protected by the Federal Confidentiality of Alcohol and Drug Abuse Patient Records regulations: The Federal rules restrict any use of the information to criminally investigate or prosecute any alcohol or drug abuse patient.[facility] HospitalIn the event this information is protected by the Federal Confidentiality of Alcohol and Drug Abuse Patient Records regulations: The Federal rules restrict any use of the information to criminally investigate or prosecute any alcohol or drug abuse patient.[facility] HospitalIn the event this information is protected by the Federal Confidentiality of Alcohol and Drug Abuse Patient Records regulations: The Federal rules restrict any use of the information to criminally investigate or prosecute any alcohol or drug abuse patient.[facility] HospitalIn the event this information is protected by the Federal Confidentiality of Alcohol and Drug Abuse Patient Records regulations: The Federal rules restrict any use of the information to criminally investigate or prosecute any alcohol or drug abuse patient.[facility] HospitalIn the event this information is protected by the Federal Confidentiality of Alcohol and Drug Abuse Patient Records regulations: The Federal rules restrict any use of the information to criminally investigate or prosecute any alcohol or drug abuse patient.[facility] HospitalIn the event this information is protected by the Federal Confidentiality of Alcohol and Drug Abuse Patient Records regulations: The Federal rules restrict any use of the information to criminally investigate or prosecute any alcohol or drug abuse patient.[facility] HospitalIn the event this information is protected by the Federal Confidentiality of Alcohol and Drug Abuse Patient Records regulations: The Federal rules restrict any use of the information to criminally investigate or prosecute any alcohol or drug abuse patient.[facility] HospitalIn the event this information is protected by the Federal Confidentiality of Alcohol and Drug Abuse Patient Records regulations: The Federal rules restrict any use of the information to criminally investigate or prosecute any alcohol or drug abuse patient.[facility] HospitalIn the event this information is protected by the Federal Confidentiality of Alcohol and Drug Abuse Patient Records regulations: The Federal rules restrict any use of the information to criminally investigate or prosecute any alcohol or drug abuse patient.[facility] HospitalIn the event this information is protected by the Federal Confidentiality of Alcohol and Drug Abuse Patient Records regulations: The Federal rules restrict any use of the information to criminally investigate or prosecute any alcohol or drug abuse patient.[facility] HospitalIn the event this information is protected by the Federal Confidentiality of Alcohol and Drug Abuse Patient Records regulations: The Federal rules restrict any use of the information to criminally investigate or prosecute any alcohol or drug abuse patient.[facility] HospitalIn the event this information is protected by the Federal Confidentiality of Alcohol and Drug Abuse Patient Records regulations: The Federal rules restrict any use of the information to criminally investigate or prosecute any alcohol or drug abuse patient.[facility] HospitalIn the event this information is protected by the Federal Confidentiality of Alcohol and Drug Abuse Patient Records regulations: The Federal rules restrict any use of the information to criminally investigate or prosecute any alcohol or drug abuse patient.[facility] HospitalIn the event this information is protected by the Federal Confidentiality of Alcohol and Drug Abuse Patient Records regulations: The Federal rules restrict any use of the information to criminally investigate or prosecute any alcohol or drug abuse patient.[facility] HospitalIn the event this information is protected by the Federal Confidentiality of Alcohol and Drug Abuse Patient Records regulations: The Federal rules restrict any use of the information to criminally investigate or prosecute any alcohol or drug abuse patient.[facility] HospitalIn the event this information is protected by the Federal Confidentiality of Alcohol and Drug Abuse Patient Records regulations: The Federal rules restrict any use of the information to criminally investigate or prosecute any alcohol or drug abuse patient.[facility] HospitalIn the event this information is protected by the Federal Confidentiality of Alcohol and Drug Abuse Patient Records regulations: The Federal rules restrict any use of the information to criminally investigate or prosecute any alcohol or drug abuse patient.[facility] HospitalIn the event this information is protected by the Federal Confidentiality of Alcohol and Drug Abuse Patient Records regulations: The Federal rules restrict any use of the information to criminally investigate or prosecute any alcohol or drug abuse patient.[facility] HospitalIn the event this information is protected by the Federal Confidentiality of Alcohol and Drug Abuse Patient Records regulations: The Federal rules restrict any use of the information to criminally investigate or prosecute any alcohol or drug abuse patient.[facility] HospitalIn the event this information is protected by the Federal Confidentiality of Alcohol and Drug Abuse Patient Records regulations: The Federal rules restrict any use of the information to criminally investigate or prosecute any alcohol or drug abuse patient.[facility] HospitalIn the event this information is protected by the Federal Confidentiality of Alcohol and Drug Abuse Patient Records regulations: The Federal rules restrict any use of the information to criminally investigate or prosecute any alcohol or drug abuse patient.[facility] HospitalIn the event this information is protected by the Federal Confidentiality of Alcohol and Drug Abuse Patient Records regulations: The Federal rules restrict any use of the information to criminally investigate or prosecute any alcohol or drug abuse patient.[facility] HospitalIn the event this information is protected by the Federal Confidentiality of Alcohol and Drug Abuse Patient Records regulations: The Federal rules restrict any use of the information to criminally investigate or prosecute any alcohol or drug abuse patient.[facility] HospitalIn the event this information is protected by the Federal Confidentiality of Alcohol and Drug Abuse Patient Records regulations: The Federal rules restrict any use of the information to criminally investigate or prosecute any alcohol or drug abuse patient.[facility] HospitalIn the event this information is protected by the Federal Confidentiality of Alcohol and Drug Abuse Patient Records regulations: The Federal rules restrict any use of the information to criminally investigate or prosecute any alcohol or drug abuse patient.[facility] HospitalIn the event this information is protected by the Federal Confidentiality of Alcohol and Drug Abuse Patient Records regulations: The Federal rules restrict any use of the information to criminally investigate or prosecute any alcohol or drug abuse patient.[facility] HospitalIn the event this information is protected by the Federal Confidentiality of Alcohol and Drug Abuse Patient Records regulations: The Federal rules restrict any use of the information to criminally investigate or prosecute any alcohol or drug abuse patient.[facility] HospitalIn the event this information is protected by the Federal Confidentiality of Alcohol and Drug Abuse Patient Records regulations: The Federal rules restrict any use of the information to criminally investigate or prosecute any alcohol or drug abuse patient.[facility] HospitalIn the event this information is protected by the Federal Confidentiality of Alcohol and Drug Abuse Patient Records regulations: The Federal rules restrict any use of the information to criminally investigate or prosecute any alcohol or drug abuse patient.[facility] HospitalIn the event this information is protected by the Federal Confidentiality of Alcohol and Drug Abuse Patient Records regulations: The Federal rules restrict any use of the information to criminally investigate or prosecute any alcohol or drug abuse patient.[facility] HospitalIn the event this information is protected by the Federal Confidentiality of Alcohol and Drug Abuse Patient Records regulations: The Federal rules restrict any use of the information to criminally investigate or prosecute any alcohol or drug abuse patient.[facility] HospitalIn the event this information is protected by the Federal Confidentiality of Alcohol and Drug Abuse Patient Records regulations: The Federal rules restrict any use of the information to criminally investigate or prosecute any alcohol or drug abuse patient.[facility] HospitalIn the event this information is protected by the Federal Confidentiality of Alcohol and Drug Abuse Patient Records regulations: The Federal rules restrict any use of the information to criminally investigate or prosecute any alcohol or drug abuse patient.[facility] HospitalIn the event this information is protected by the Federal Confidentiality of Alcohol and Drug Abuse Patient Records regulations: The Federal rules restrict any use of the information to criminally investigate or prosecute any alcohol or drug abuse patient.[facility] HospitalIn the event this information is protected by the Federal Confidentiality of Alcohol and Drug Abuse Patient Records regulations: The Federal rules restrict any use of the information to criminally investigate or prosecute any alcohol or drug abuse patient.[facility] HospitalIn the event this information is protected by the Federal Confidentiality of Alcohol and Drug Abuse Patient Records regulations: The Federal rules restrict any use of the information to criminally investigate or prosecute any alcohol or drug abuse patient.[facility] HospitalIn the event this information is protected by the Federal Confidentiality of Alcohol and Drug Abuse Patient Records regulations: The Federal rules restrict any use of the information to criminally investigate or prosecute any alcohol or drug abuse patient.[facility] HospitalIn the event this information is protected by the Federal Confidentiality of Alcohol and Drug Abuse Patient Records regulations: The Federal rules restrict any use of the information to criminally investigate or prosecute any alcohol or drug abuse patient.[facility] HospitalIn the event this information is protected by the Federal Confidentiality of Alcohol and Drug Abuse Patient Records regulations: The Federal rules restrict any use of the information to criminally investigate or prosecute any alcohol or drug abuse patient.[facility] HospitalIn the event this information is protected by the Federal Confidentiality of Alcohol and Drug Abuse Patient Records regulations: The Federal rules restrict any use of the information to criminally investigate or prosecute any alcohol or drug abuse patient.[facility] HospitalIn the event this information is protected by the Federal Confidentiality of Alcohol and Drug Abuse Patient Records regulations: The Federal rules restrict any use of the information to criminally investigate or prosecute any alcohol or drug abuse patient.[facility] HospitalIn the event this information is protected by the Federal Confidentiality of Alcohol and Drug Abuse Patient Records regulations: The Federal rules restrict any use of the information to criminally investigate or prosecute any alcohol or drug abuse patient.[facility] HospitalIn the event this information is protected by the Federal Confidentiality of Alcohol and Drug Abuse Patient Records regulations: The Federal rules restrict any use of the information to criminally investigate or prosecute any alcohol or drug abuse patient.[facility] HospitalIn the event this information is protected by the Federal Confidentiality of Alcohol and Drug Abuse Patient Records regulations: The Federal rules restrict any use of the information to criminally investigate or prosecute any alcohol or drug abuse patient.[facility] HospitalIn the event this information is protected by the Federal Confidentiality of Alcohol and Drug Abuse Patient Records regulations: The Federal rules restrict any use of the information to criminally investigate or prosecute any alcohol or drug abuse patient.[facility] HospitalIn the event this information is protected by the Federal Confidentiality of Alcohol and Drug Abuse Patient Records regulations: The Federal rules restrict any use of the information to criminally investigate or prosecute any alcohol or drug abuse patient.[facility] HospitalIn the event this information is protected by the Federal Confidentiality of Alcohol and Drug Abuse Patient Records regulations: The Federal rules restrict any use of the information to criminally investigate or prosecute any alcohol or drug abuse patient.[facility] HospitalIn the event this information is protected by the Federal Confidentiality of Alcohol and Drug Abuse Patient Records regulations: The Federal rules restrict any use of the information to criminally investigate or prosecute any alcohol or drug abuse patient.[facility] HospitalIn the event this information is protected by the Federal Confidentiality of Alcohol and Drug Abuse Patient Records regulations: The Federal rules restrict any use of the information to criminally investigate or prosecute any alcohol or drug abuse patient.[facility] HospitalIn the event this information is protected by the Federal Confidentiality of Alcohol and Drug Abuse Patient Records regulations: The Federal rules restrict any use of the information to criminally investigate or prosecute any alcohol or drug abuse patient.[facility] HospitalIn the event this information is protected by the Federal Confidentiality of Alcohol and Drug Abuse Patient Records regulations: The Federal rules restrict any use of the information to criminally investigate or prosecute any alcohol or drug abuse patient.[facility] HospitalIn the event this information is protected by the Federal Confidentiality of Alcohol and Drug Abuse Patient Records regulations: The Federal rules restrict any use of the information to criminally investigate or prosecute any alcohol or drug abuse patient.[facility] HospitalIn the event this information is protected by the Federal Confidentiality of Alcohol and Drug Abuse Patient Records regulations: The Federal rules restrict any use of the information to criminally investigate or prosecute any alcohol or drug abuse patient.[facility] HospitalIn the event this information is protected by the Federal Confidentiality of Alcohol and Drug Abuse Patient Records regulations: The Federal rules restrict any use of the information to criminally investigate or prosecute any alcohol or drug abuse patient.[facility] HospitalIn the event this information is protected by the Federal Confidentiality of Alcohol and Drug Abuse Patient Records regulations: The Federal rules restrict any use of the information to criminally investigate or prosecute any alcohol or drug abuse patient.[facility] HospitalIn the event this information is protected by the Federal Confidentiality of Alcohol and Drug Abuse Patient Records regulations: The Federal rules restrict any use of the information to criminally investigate or prosecute any alcohol or drug abuse patient.[facility] HospitalIn the event this information is protected by the Federal Confidentiality of Alcohol and Drug Abuse Patient Records regulations: The Federal rules restrict any use of the information to criminally investigate or prosecute any alcohol or drug abuse patient.[facility] HospitalIn the event this information is protected by the Federal Confidentiality of Alcohol and Drug Abuse Patient Records regulations: The Federal rules restrict any use of the information to criminally investigate or prosecute any alcohol or drug abuse patient.[facility] HospitalIn the event this information is protected by the Federal Confidentiality of Alcohol and Drug Abuse Patient Records regulations: The Federal rules restrict any use of the information to criminally investigate or prosecute any alcohol or drug abuse patient.[facility] HospitalIn the event this information is protected by the Federal Confidentiality of Alcohol and Drug Abuse Patient Records regulations: The Federal rules restrict any use of the information to criminally investigate or prosecute any alcohol or drug abuse patient.[facility] HospitalIn the event this information is protected by the Federal Confidentiality of Alcohol and Drug Abuse Patient Records regulations: The Federal rules restrict any use of the information to criminally investigate or prosecute any alcohol or drug abuse patient.[facility] HospitalIn the event this information is protected by the Federal Confidentiality of Alcohol and Drug Abuse Patient Records regulations: The Federal rules restrict any use of the information to criminally investigate or prosecute any alcohol or drug abuse patient.[facility] HospitalIn the event this information is protected by the Federal Confidentiality of Alcohol and Drug Abuse Patient Records regulations: The Federal rules restrict any use of the information to criminally investigate or prosecute any alcohol or drug abuse patient.[facility] HospitalIn the event this information is protected by the Federal Confidentiality of Alcohol and Drug Abuse Patient Records regulations: The Federal rules restrict any use of the information to criminally investigate or prosecute any alcohol or drug abuse patient.[facility] HospitalIn the event this information is protected by the Federal Confidentiality of Alcohol and Drug Abuse Patient Records regulations: The Federal rules restrict any use of the information to criminally investigate or prosecute any alcohol or drug abuse patient.[facility] HospitalIn the event this information is protected by the Federal Confidentiality of Alcohol and Drug Abuse Patient Records regulations: The Federal rules restrict any use of the information to criminally investigate or prosecute any alcohol or drug abuse patient.[facility] HospitalIn the event this information is protected by the Federal Confidentiality of Alcohol and Drug Abuse Patient Records regulations: The Federal rules restrict any use of the information to criminally investigate or prosecute any alcohol or drug abuse patient.[facility] HospitalIn the event this information is protected by the Federal Confidentiality of Alcohol and Drug Abuse Patient Records regulations: The Federal rules restrict any use of the information to criminally investigate or prosecute any alcohol or drug abuse patient.[facility] HospitalIn the event this information is protected by the Federal Confidentiality of Alcohol and Drug Abuse Patient Records regulations: The Federal rules restrict any use of the information to criminally investigate or prosecute any alcohol or drug abuse patient.[facility] HospitalIn the event this information is protected by the Federal Confidentiality of Alcohol and Drug Abuse Patient Records regulations: The Federal rules restrict any use of the information to criminally investigate or prosecute any alcohol or drug abuse patient.[facility] HospitalIn the event this information is protected by the Federal Confidentiality of Alcohol and Drug Abuse Patient Records regulations: The Federal rules restrict any use of the information to criminally investigate or prosecute any alcohol or drug abuse patient.[facility] HospitalIn the event this information is protected by the Federal Confidentiality of Alcohol and Drug Abuse Patient Records regulations: The Federal rules restrict any use of the information to criminally investigate or prosecute any alcohol or drug abuse patient.[facility] HospitalIn the event this information is protected by the Federal Confidentiality of Alcohol and Drug Abuse Patient Records regulations: The Federal rules restrict any use of the information to criminally investigate or prosecute any alcohol or drug abuse patient.[facility] Reason for Visit (unrecogniz ed section and content) Reason Comments Lymphoma New patient consulta tion Reason Comments 2nd opinion path Reason Comments Care Coordination Pathology Update Reason Comments Lymphoma Reason Comments Consult Specialty Diagnoses / Procedures [facility] Referred To Contact Diagnoses 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) Procedures CONSULT TO HEMATOLOGY/ONCOLOGY OFFICE/OUTPATIENT [facility] MDM 60-74 MINUTES Michael Boykin MD [address] [place] [address] [place] [address] Referral ID Status Reason Start Date Expiration Date V isits Requested Visits Authorized [id number] Closed PCP Requested Referral 05/22/2023 05/21/2024 1 1 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 Orders Reason Comments Care Coordination Antiemetics Reason Comments Lymphoma 2 week follow up Reason Comments Customer Equipment Engineer - Other Uric Acid Resul ts Reason Comments Customer Equipment Engineer - Other Medication Prob carmencita Reason Comments Care Coordination Pathology Results Specialty Diagnoses / Procedures Referred By Contac t Referred To Contact Diagnoses 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) Niesha Galdamez MD [address] [place] [address] [address] [place] [address] [address] [place] [address] Referral ID Status Reason Start Date Expiration Date V isits Requested Visits Authorized [id number] Authorized 05/31/2023 08/29/2023 99 99 Reason Comments Care Coordination C1D1 treatment follo w up call Reason Comments Appointment Reason Comments Research IRB 5024 Informed Consent Specialty Diagnoses / Procedures Referred By Contac t Referred To Contact Hematology / HEMATOLOGY/ONCOLOGY Diagnoses lab/port Procedures LAB/PORT Michael Boykin MD [address] [place] [place] [address] Nate Anson Mc [address] [place] [address] Referral ID Status Reason Start Date Expiration Date V isits Requested Visits Authorized [id number] Authorized 06/17/2023 11/02/2023 99 99 Reason Comments [...] Hematology Diagnoses Diagnosis: Follicular Lymphoma [facility] Referring Dr/Office: Self Biopsy performed: 12/17/23 Facility Bx done at: 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 Next Steps Reason Comments Established Patient Reason Comments Nm Pet Request Reason Comments Social Work Services Reason Comments Benefits Investigation Reason Comments MNC for IEC Reason Onset Date Comments Simulation Request Form 03/15/2024 Reason Comments Patient Education Reason Comments Radiotherapy On-treatment Visit Specialty Diagnoses / Procedures Referred By Contyokasta t Referred To Contact Diagnoses 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) Niesha Galdamez MD [address] [place] [address] [address] [place] [address] [address] [place] [id number] Referral ID Status Reason Start Date Expiration Date V isits Requested Visits Authorized [id number] Authorized 02/18/2024 05/18/2024 99 99 Reason Comments Returning Patient's Call Reason Comments Patient Update Reason Comments Patient Update Weekly Labs Reason Comments New Patient Reason Comments 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 [employer] provides no warranty or guarantee of the accuracy or completeness of information in this document.
== END 2024-06-14 14:01 | disposition home or self-care (01) ==
LOC: PST 06-15 07:26
PROVIDERS: Visit Provider Surgery
DX: Z01.818 Encounter for other preprocedural examination (principal); R94.8 Abnormal results of function studies of other organs and systems

== ENCOUNTER 2024-06-23 08:45 | Day surgery (SDC) | payer MEDICARE, SELFPAY ==
--- NOTE | 2024-06-23 | OP_ITS ---
OPERATION DATE: 06/23/2024 PREOPERATIVE DIAGNOSIS: Abnormal PET scan of the sigmoid colon. POSTOPERATIVE DIAGNOSIS: Sigmoid polyps x2 as well as the descending colon and rectal polyps. PROCEDURE: Colonoscopy to cecum with cold snare polypectomy x1 for 5 mm sigmoid polyp, cold biopsy forceps polypectomy x1 for 4 mm descending colon polyp, hot snare polypectomy x2 for 7 mm distal sigmoid polyp and 4 mm rectal polyp. SURGEON: Elmer Jung M.D. ANESTHESIA: Monitored anesthesia care. ESTIMATED BLOOD LOSS: Less than 1 mL. INDICATIONS AND CONSENT: Patient is a 68-year-old male with a history of lymphoma, who recently had several PET scans that revealed abnormal activity within the sigmoid colon. Indications, risks, benefits, alternatives of proceeding with colonoscopy were explained extensively to the patient, including the risks of bleeding, colon perforation or anesthetic complications. All of his questions were answered. Informed consent was obtained. PROCEDURE: Patient brought to the operating room, placed in the left lateral decubitus position. Monitored anesthesia care was provided. Rectal exam was performed which showed no masses or blood. The scope was inserted into the anal canal. Under direct visualization was advanced to the cecum where cecal marking were clearly identified. Upon withdrawal of the scope, mucosal surfaces were carefully examined. Within the descending colon, there was noted to be a flat, 4 mm lesion that was removed with cold biopsy forceps with good hemostasis. In the sigmoid colon proximally, there was noted to be a 5 mm sessile polyp that was removed with cold snare with good hemostasis. Distally, there was noted to be a pedunculated, 7 mm polyp that was removed with hot snare with good hemostasis. Within the rectum, there was noted to be a 4 mm sessile polyp that was removed with hot snare with good hemostasis. The scope was retroflexed in the anal canal. There was no significant hemorrhoidal disease. The scope was then withdrawn. Patient tolerated procedure well, was sent to recovery room in good condition. Follow up colonoscopy will likely be in 3-5 years, but depend on pathology. CC: Patient?s family physician MIGUEL
[2024-06-23 08:50] VITALS: BMI 25.7
[2024-06-23] MEDS: LACTATED RINGER'S SOLUTION 1,000 ML 50 ML IV (09:16)
[2024-06-23 11:12] VITALS: BP 101/64; PULSE 66; TEMP 36.4; O2SAT 99
[2024-06-23 11:27] VITALS: BP 98/68; PULSE 75; O2SAT 99
[2024-06-23 11:42] VITALS: BP 114/71; PULSE 64; O2SAT 99
== END 2024-06-23 11:42 | disposition home or self-care (01) ==
PROVIDERS: Visit Provider Surgery
PROC: (CPT 45380; principal; 2024-06-23 09:55)
DX: R94.8 Abnormal results of function studies of other organs and systems (principal); D12.5 Benign neoplasm of sigmoid colon; D12.4 Benign neoplasm of descending colon; D12.8 Benign neoplasm of rectum; E03.9 Hypothyroidism, unspecified; C85.90 Non-Hodgkin lymphoma, unspecified, unspecified site; K21.9 Gastro-esophageal reflux disease without esophagitis; Z87.891 Personal history of nicotine dependence; Z79.899 Other long term (current) drug therapy
CPT/HCPCS: 45380; 45385; 82948; 88305; J2371; J2704

== ENCOUNTER 2024-08-30 02:00 | Emergency (ER) | payer MEDICARE, SELFPAY ==
[2024-08-30 02:06] VITALS: BP 125/91; PULSE 122; TEMP 38; O2SAT 97; BMI 25.8
--- NOTE | 2024-08-30 02:18 | XR_ITS ---
The [address] [address] Patient Name: KATIA SHAIKH MRN: [id number] date: 1955 Sex: M Assigned Patient Location: ER Current Patient Location: ED.MAIN Accession/Order Number: [id number] Exam Date: 08/30/2024 02:40 Report Date: 08/30/2024 03:58 At the request of: ZAHIRA MARKER Procedure: XR chest 2V EXAM: XR chest 2V HISTORY: fever cough . History of lymphoma. COMPARISON: None. TECHNIQUE: PA and lateral chest x-rays. FINDINGS: Right upper chest wall transition, or cannulated with a needle with subclavian line, tip extends to the mid SVC, stable from prior. Linear band of scar versus atelectasis projects over left heart border likely lingula. Mild bilateral lung hyperinflation attenuation of markings and vessels with flattened diaphragms suggesting COPD the. There may be component of upper lobe emphysema particularly on the right with loss of lung markings. Correlate with smoking history. Lungs are clear. No acute consolidation. No pneumothorax or pleural effusion. No focal mass or nodule on x-ray. Unremarkable osseous structures. Cardiac silhouette and vasculature are normal. XR/XR chest 2V IMPRESSION: 1. No acute findings. 2. Suspect COPD and pulmonary emphysema. 3. Satisfactory right upper chest wall port and line. Electronically authenticated by: JOSE LUIS COLON Date: 08/30/2024 03:58
--- NOTE | 2024-08-30 02:34 | ED.URI1 ---
HPI - URI/Sore Throat General Chief Complaint: Upper Respiratory Infection Stated Complaint: CHEST PAIN Time Seen by Provider: 08/30/24 02:11 Source: patient Limitations: no limitations History of Present Illness HPI Narrative: This 68-year-old male with a history of lymphoma diagnosed last year who underwent treatment and is currently cancer free and had a clear PET scan last month presents for evaluation of fever, cough and chest congestion. The patient's recently had a 3-day illness that included fevers, chills, body aches. She states that she was in bed for 3 days. The patient's symptoms started 1 to 2 days ago with sore throat, runny nose and cough. Tonight he had an episode of coughing and could not catch his breath until he was able to cough up a bit of phlegm. He is not having any vomiting or diarrhea. The patient's is concerned because he is immunocompromise due to his cancer therapy. He is not currently on any cancer therapy or immunotherapy. Related Data Home Medications ?Medication ?Instructions ?Recorded ?Confirmed levothyroxine 125 mcg capsule 125 mcg PO DAILY 05/01/23 06/23/24 multivitamin (Daily Multi-Vitamin 1 tab PO QAM 05/01/23 06/23/24 tablet) krill oil 500 mg capsule 500 mg PO DAILY 12/12/23 06/23/24 acyclovir 400 mg tablet 400 mg PO BID 06/14/24 06/23/24 omega 2-hgk-ggp-fish oil 1,000 mg 1 cap PO DAILY 06/14/24 06/23/24 (120 mg-180 mg) capsule (Fish Oil) sulfamethoxazole 800 1 tab PO DAILY 06/14/24 06/23/24 mg-trimethoprim 160 mg tablet (Bactrim DS) Allergies Allergy/AdvReac Type Severity Reaction Status Date / Time allopurinol Allergy Rash Verified 08/30/24 02:06 Review of Systems ROS Status of ROS 10 or more systems reviewed and unremarkable except as noted in history and below [facility] Medical History (Updated 08/30/24 @ 03:32 by Oralia Malone MD) Immunotherapy ?Z29.89 - Encounter for other specified prophylactic measures (ICD-10) GERD (gastroesophageal reflux disease) ?K21.9 - Gastro-esophageal reflux disease without esophagitis (ICD-10) Large B-cell lymphoma ?C85.10 - Unspecified B-cell lymphoma, unspecified site (ICD-10) Lymphoma ?C85.90 - Non-Hodgkin lymphoma, unspecified, unspecified site (ICD-10) Mass of right inguinal region ?R19.09 - Other intra-abdominal and pelvic swelling, mass and lump (ICD-10) 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 ?C85.95 - Non-Hodgkin lymphoma, unspecified, lymph nodes of inguinal region and lower limb (ICD-10) Non Hodgkin's lymphoma ?C85.90 - Non-Hodgkin lymphoma, unspecified, unspecified site (ICD-10) Back pain ?M54.9 - Dorsalgia, unspecified (ICD-10) Heartburn ?R12 - Heartburn (ICD-10) Hypothyroidism ?E03.9 - Hypothyroidism, unspecified (ICD-10) Lymph node symptom ?R09.89 - Other specified symptoms and signs involving the circulatory and respiratory systems (ICD-10) Surgical History (Updated 12/12/23 @ 11:48 by Sandra Cano NP) H/O lymph node biopsy ?Z98.890 - Other specified postprocedural states (ICD-10) History of bronchoscopy ?Z98.890 - Other specified postprocedural states (ICD-10) History of thoracentesis ?Z98.890 - Other specified postprocedural states (ICD-10) H/O insertion of central venous access port ?Z95.828 - Presence of other vascular implants and grafts (ICD-10) History of lymph node excision ?Z98.890 - Other specified postprocedural states (ICD-10) Family History (Updated 05/01/23 @ 15:07 by Margie Munson) Other Family history of Alzheimer's disease Family history of diabetes mellitus Family history of lung cancer Family history of myocardial infarction Family history of renal failure Family history of skin cancer Social History (Updated 06/14/24 @ 10:46 by Esther Harris) Within the past year, how often did you have a drink containing alcohol: 2-3 times a week Within the past year, how often did you have six or more drinks on one occasion: never Smoking status: Former smoker Non-prescribed substance use: denies use 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; 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 Highest level of school completed/degree received: high school graduate Little interest or pleasure in doing things: not at all Feeling down, depressed, or hopeless: not at all Exam Narrative Exam Narrative: Vital signs and Nursing Notes reviewed: Patient is febrile, tachycardic, he has normal blood pressure, he is not hypoxic with pulse ox of 97% on room air General: Awake, alert, oriented, no acute distress, lying comfortably on the stretcher, occasional dry cough HEENT: Normocephalic atraumatic, mucous membranes are moist and pink, eyes are clear, normal conjunctiva, vision is grossly intact, posterior pharynx is normal in appearance. Neck: Supple, no meningeal signs, no anterior or posterior cervical lymphadenopathy Chest: Lungs are clear to auscultation with good air entry, there is no wheezing rhonchi or rales appreciated no accessory muscle use, patient is speaking in complete sentences-no chest wall tenderness to palpation CVS: Regular rate and rhythm S1-S2, tachycardic at 122 upon arrival no murmurs rubs or gallops, pulses are brisk and equal bilaterally ABD: Soft, nondistended, nontender, no rebound guarding or rigidity, bowel sounds are normal, no pulsatile masses appreciated Extremities: Moving all extremities, no lower extremity tenderness or swelling noted, negative Homans' sign, pulses are brisk and equal bilaterally Skin: Normal in appearance without rash,pallor, petechiae or purpura Neuro: No focal deficits Constitutional Vital Signs, click to edit/add: Last Vital Signs Temp 100.4 F 08/30/24 02:06 Pulse 105 H 08/30/24 03:05 Resp 18 08/30/24 03:05 BP 111/78 08/30/24 03:05 Pulse Ox 97 08/30/24 03:05 O2 Del Method Room Air 08/30/24 03:05 Course Vital Signs Vital signs: Vital Signs Temperature 100.4 F 08/30/24 02:06 Pulse Rate 122 H 08/30/24 02:06 Respiratory Rate 20 08/30/24 02:06 Blood Pressure 125/91 08/30/24 02:06 Pulse Oximetry 97 08/30/24 02:06 Oxygen Delivery Method Room Air 08/30/24 02:06 Temperature 100.4 F 08/30/24 02:06 Pulse Rate 105 H 08/30/24 03:05 Respiratory Rate 18 08/30/24 03:05 Blood Pressure 111/78 08/30/24 03:05 Pulse Oximetry 97 08/30/24 03:05 Oxygen Delivery Method Room Air 08/30/24 03:05 MDM - URI/Sore Throat MDM Narrative Medical decision making narrative: This 68-year-old male with a history of lymphoma who recently underwent treatment and is currently cancer free and had a clear PET scan presents for evaluation of fevers, chills and a cough. The patient told his to call EMS earlier tonight because he was coughing so hard that he could not catch his breath. He was finally able to clear his airway of the phlegm in his throat that was keeping him from breathing. He denies any elda chest pain. His is anxious because he is immunocompromised and febrile. His also recently had a similar illness for 3 days in which she was in bed for 3 days. The patient does not smoke. His lungs are clear, abdomen is soft. He does not have any lower extremity pain or swelling. He denies any GI symptoms. An IV was placed and he was medicated with IV fluids and Tylenol for his tachycardia and fever. EKG done upon arrival is a sinus tachycardia at 108 bpm with no acute changes. A work up including COVID-19, influenza, strep, lactic acid, CBC with differential, comprehensive metabolic profile, blood cultures and chest x-ray was ordered. He has a normal white count and his hemoglobin is stable. He is positive for COVID-19. 2 view CXR is negative for acute infiltrate. CMP is normal. Lactic acid is elevated at 2.9. He was uncertain about receiving Paxlovid but he was given a prescription for it and I suggested that he speak to his oncologist about taking it. He was also given Rx for Bromfed DM. He complains of an ongoing sore throat and was given a cough drops and ibuprofen. He is anxious to be discharged home. He will be discharged home at this time. He was encouraged to drink plenty of fluids use Tylenol and Motrin as needed for fever, cough return to the emergency department for chest pain shortness of breath or inability to tolerate his medications. Lab Data Attestation: I reviewed the patient's lab results. Labs: Lab Results 08/30/24 08/30/24 Range/Units 02:20 02:30 WBC 4.4 (4.0-11.0) 10^3/uL RBC 3.65 L (4.70-6.10) 10^6/uL Hgb 13.3 L (14.0-18.0) g/dL Hct 37.2 L (42.0-54.0) % MCV 101.9 H (80.0-94.0) fL MCH 36.4 H (25.9-34.0) pg MCHC 35.8 H (29.9-35.2) g/dL RDW 12.1 (11.0-15.0) % Plt Count 131 L (150-450) 10^3/uL MPV 9.7 (9.5-13.5) fL Seg Neuts % (Manual) 86.0 H (43.0-75.0) Lymphocytes % (Manual) 8.0 L (20.5-60.0) % Monocytes % (Manual) 5.0 (1.7-12.0) % Eosinophils % (Manual) 0.0 L (0.9-7.0) % Basophils % (Manual) 1.0 (0.2-2.0) % Neutrophils # (Manual) 3.78 (1.4-6.5) 10^3/uL Lymphocytes # (Manual) 0.35 L (1.20-3.80) 10^3/uL Monocytes # (Manual) 0.22 L (0.30-0.80) 10^3/uL Eosinophils # (Manual) 0.00 (0.00-0.70) 10^3/uL Basophils # (Manual) 0.04 (0.00-0.10) 10^3/uL Sodium 137 (136-145) mmol/L Potassium 3.6 (3.5-5.1) mmol/L Chloride 102 (98-107) mmol/L Carbon Dioxide 23.8 (21.0-32.0) mmol/L Anion Gap 14.8 BUN 17.0 (7.0-18.0) mg/dL Creatinine 1.30 (0.70-1.30) mg/dL Est GFR ( Amer) >60 (>=60 mL/min/1.73m^2) Est GFR (Non-Af Amer) 55 L (>=60 mL/min/1.73m^2) BUN/Creatinine Ratio 13.1 Glucose 143 H (74-106) mg/dL Lactate 2.9 H* (0.4-2.0) mmol/L Calcium 8.4 L (8.5-10.1) mg/dL Total Bilirubin 0.3 (0.2-1.0) mg/dL AST 26 (15-37) U/L ALT 38 (16-63) U/L Alkaline Phosphatase 122 H (46-116) U/L Total Protein 6.4 (6.4-8.2) g/dL Albumin 3.3 L (3.4-5.0) g/dL Globulin 3.1 g/dL Albumin/Globulin Ratio 1.1 Influenza Type A Ag Negative Influenza Type B Ag Negative SARS-CoV-2 Ag (CV2AG) Positive A (NEGATIVE) Streptococcus Screen Negative ECG Data Attestation: I personally reviewed and interpreted this ECG as follows: (Sinus tachycardia at 108 bpm, normal axis, normal intervals, no acute ST segment elevation or T wave inversion) Discharge Plan Discharge Chief Complaint: Upper Respiratory Infection Clinical Impression: COVID-19 Patient Disposition: Home, Self-Care Time of Disposition Decision: 04:09 Condition: Good Prescriptions / Home Meds: No Action krill oil 500 mg capsule 500 mg PO DAILY acyclovir 400 mg tablet 400 mg PO BID sulfamethoxazole-trimethoprim [Bactrim DS] 800-160 mg tablet 1 tab PO DAILY omega 4-cyu-qmg-fish oil [Fish Oil] 1,000 mg (120 mg-180 mg) capsule 1 cap PO DAILY levothyroxine 125 mcg capsule 125 mcg PO DAILY multivitamin [Daily Multi-Vitamin] Tablet 1 tab PO QAM Print Language: Estonian Instructions: COVID-19 and Chronic Health Conditions (ED), How to Recover from COVID-19 at Home (ED) Referrals: Physician,Non-Staff, MD [Primary Care Provider] - 1 week
--- NOTE | 2024-08-30 02:38 | ECG_ITS ---
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
--- OUTSIDE RECORDS SUMMARY | 2024-08-30 02:42 | XMS_ITS | CCD ---
Author Organization [facility] Care Team Providers Care Technical Information Specialist Name Role Phone Unavailable Primary Care Provider EMELIA Everett Referring Unavailable Unavailable Primary Care Provider EMELIA Everett Primary Care Physician Unavailable Primary Care Provider Erasmo Feliz APRN.ELECTRICAL CONSTRUCTION PROJECT MANAGER, Cleo Unavailable [phone] Michael Boykin MD Unavailable [phone] Ivania Jackman RN Unavailable Ivania Jackman RN Unavailable [phone] Dorcas Bolanos MD Unavailable Niesha Galdamez MD Unavailable [phone] Michael Boykin MD Unavailable Emelia Gonzalez MD Primary Care Provider SELF, SELF Referring Unavailable DORCAS BOLANOS Attending Unavailable Krystyna Miller Unavailable [phone] Rolando WILSON, Martina Onofre Unavailable [phone] Niesha Galdamez MD Unavailable Chloe Changin Unavailable Rolando WILSON, Martina M Unavailable [phone] Giana Chang Unavailable Chloe Changin Unavailable Chiquita RIVERA Attending Unavailable Michael Boykin Referring Unavailable Chiquita RIVERA Attending Unavailable Chiquita RIVERA Attending Unavailable Chiquita RIVERA Attending Unavailable Chiquita RIVERA Attending Unavailable NILLChiquita Attending Unavailable Tristen VARELA Attending Unavailable BOYKIN, MICHAEL R Referring Unavailable BOYKIN, MICHAEL R Attending Unavailable WINTER, NIESHA Referring Unavailable CORDANIELLE MURILLO Referring Unavailable BOYKIN, MICHAEL R Attending Unavailable BOYKIN, MICHAEL R Referring Unavailable WINTER, NIESHA Referring Unavailable WINTER, NIESHA Referring Unavailable TRAY, CLEO Attending Unavailable BOYKIN, MICHAEL R Referring Unavailable BOYKIN, MICHAEL R Referring Unavailable BOYKIN, MICHAEL R Referring Unavailable BOYKIN, MICHAEL R Referring Unavailable BOYKIN, MICHAEL R Referring Unavailable BOYKIN, MICHAEL R Attending Unavailable BOYKIN, MICHAEL R Referring Unavailable TRAY, CLEO Attending Unavailable BOYKIN, MICHAEL R Referring Unavailable BOYKIN, MICHAEL R Referring Unavailable BOYKIN, MICHAEL R Referring Unavailable BOYKIN, MICHAEL R Attending Unavailable BOYKIN, MICHAEL R Referring Unavailable WINTER, NIESHA Referring Unavailable WINTER, NIESHA Referring Unavailable WINTER, NIESHA Attending Unavailable WINTER, NIESHA Referring Unavailable AL NORI, ADNAN R Primary Care Unavailable WINTER, NIESHA Attending Unavailable WINTER, NIESHA Attending Unavailable BOYKIN, MICHAEL R Referring Unavailable BOYKIN, MICHAEL R Referring Unavailable BOYKIN, MICHAEL R Referring Unavailable Tristen VARELA Attending Unavailable ASHUTOSH, MICHAEL R Referring Unavailable Tristen VARELA Attending Unavailable WINTER, NIESHA Referring Unavailable WINTER, NIESHA Referring Unavailable WINTER, NIESHA Referring Unavailable ASHUTOSH, MICHAEL R Attending Unavailable ASHUTOSH, MICHAEL R Referring Unavailable WINTER, NIESHA Referring Unavailable WINTER, NIESHA Attending Unavailable NABILA CHERY Attending Unavailable WINTER, NIESHA Referring Unavailable DYLAN PORTER Attending Unavailable WINTER, NIESHA Attending Unavailable WINTER, NIESHA Referring Unavailable BOYKIN, MICHAEL R Referring Unavailable BOYKIN, MICHAEL R Referring Unavailable BOYKIN, MICHAEL R Referring Unavailable TRAYCLEO Referring Unavailable WINTER, NIESHA Attending Unavailable WINTER, NIESHA Referring Unavailable WINTER, NIESHA Referring Unavailable WINTER, NIESHA Referring Unavailable Tristen VARELA Attending Unavailable WINTER, NIESHA Referring Unavailable Tristen VARELA Attending Unavailable ASHUTOSH, MICHAEL R Referring Unavailable BOYKIN, MICHAEL R Attending Unavailable ASHUTOSH, MICHAEL R Referring Unavailable AL NORI, ADNAN R Primary Care Unavailable CHIQUITA DAVIS Attending Unavailable CHIQUITA DAVIS Admitting Unavailable AL NORI, ADNAN R Primary Care Unavailable WINTER, NIESHA Referring Unavailable WINTER, NIESHA Referring Unavailable BOYKIN, MICHAEL R Referring Unavailable BOYKIN, MICHAEL R Attending Unavailable BOYKIN, MICHAEL R Referring Unavailable BOYKIN, MICHAEL R Attending Unavailable MICHAEL BOYKIN Referring Unavailable MICHAEL BOYKIN Referring Unavailable Tristen VARELA Attending Unavailable Allergies Allergy Classification Reported Allergen(s) Allergy Type Date of Onset Reaction(s) Facility Allopurinol (4 sources) Allopurinol Drug Allergy 07-08-20 [facility] (20 sources) Allopurinol; Translations: [allopurinol] Drug Allergy 07-08-20 [facility] (20 sources) Glucocorticoid preparation; Translations: [CORTICOSTEROIDS (GLUCOCORTICOIDS)] Propensity to adverse reactions to drug 03-30-20 Contraindicati on-Medical Surgical [facility] (1 source) No Known Medication Allergies; Translations: [No Known Medication Allergies] Propensity to adverse reactions (disorder) [facility] Repository Medications Current Medications Medication Drug Class(es) Dates Sig (Normalized) Sig (Original) acyclovir 400 mg oral tablet (18 sources) Herpesvirus Nucleoside Analog DNA Polymerase Inhibitor, [...] Take 1 Dose by mouth once daily. Active take 1 dose by mouth once daily [...] tablet 0 04/18/2024 04/28/2024 Active Fish Oils (9 sources) Start: 04-23-2023 Fish Oil Refill(s) 0, as directed Start Date: 04/23/23 Status: Ordered take 1 tablet by mouth once sherrie y FISH OIL Take 1 tablet by mouth daily. 0 Active KRILL OIL ORAL (20 sources) take 1 dose by mouth once daily KRILL OIL ORAL Take 1 Dose by mouth once daily. Active take 1 dose by mouth once daily [...] Start Date: 04/23/23 Status: Ordered Start: 02-04-2020 End: 07-19-2024 take 1 tablet by mouth once levothyroxine (SYNTHROID) 125 mcg tablet Take 1 tablet by mouth every afternoon. 02/25/2023 07/19/2024 Discontinued Comment on above: Take 1 tablet by radha th every afternoon. Multi Vitamins oral tablet (6 sources) Start: 3 take 1 tablet by [...] Take 1 Dose by mouth once daily. Active take 1 dose by mouth once daily [...] mg / trimethoprim 160 mg oral tablet (18 sources) Dihydrofolate Reductase Inhibitor Antibacterial, Sulfonamide Antimicrobial [...] pantoprazole 40 mg delayed release oral tablet (9 sources) Proton Pump Inhibitor Start: 2023 End: [...] 4 04-06-2024 Chronic Deficiency and other anemia (17 sources) Pancytopenia; Translations: [Other pancytopenia] Onset: 4 04-23-2024 Chronic Esophageal disorders (20 sources) Gastroesophageal reflux disease; Translations: [Gastro-esophageal reflux disease without esophagitis] Onset: 4 04-23-2023 Chronic Immunity disorders (20 sources) Cytokine release syndrome; 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] Onset: 4 Resolved: 4 04-14-2024 Chronic Lymphadenitis (8 sources) Localized enlarged lymph nodes; Translations: [Localized enlarged lymph nodes] Onset: 3 Episodic Maintenance chemotherapy; radiotherapy (1 source) Patient encounter status; Translations: [Encounter for antineoplastic chemotherapy] 04-03-2024 Chronic Non-Hodgkin`s lymphoma (20 sources) Non-Hodgkin's lymphoma (clinical); [...] therapeutic drug level monitoring] 02-18-2024 Episodic Other and unspecified benign neoplasm (1 source) Benign neoplasm of colon; Translations: [Benign neoplasm of colon, unspecified] Onset: 4 Episodic Other and unspecified benign neoplasm (1 source) Benign neoplasm of rectum; Translations: [Benign neoplasm of rectum] Onset: 4 Episodic Other and unspecified benign neoplasm (2 sources) Benign neoplasm of descending colon; Translations: [Benign neoplasm of descending colon] Onset: 4 Episodic Other and unspecified benign neoplasm (1 source) Adenomatous polyp of colon 07-14-2024 Episodic Other and unspecified benign neoplasm (1 source) Adenomatous polyp of rectum 07-14-2024 Episodic Other diseases of veins and lymphatics (2 sources) Lymphedema; Translations: [Lymphedema, not elsewhere classified] 06-18-2024 Chronic Other gastrointestinal disorders (3 sources) Groin mass 12-09-2023 Episodic Other hematologic conditions (2 sources) H/O: blood disorder; Translations: [Personal history of diseases of the blood and blood-forming organs and certain disorders involving the immune mechanism] 02-18-2024 Episodic Other lower respiratory disease (1 source) Dyspnea on exertion; Translations: [Other forms of dyspnea] 05-19-2023 Episodic Other nutritional; endocrine; and metabolic disorders (6 sources) Overweight 04-29-2023 Episodic Other nutritional; endocrine; and metabolic disorders (6 sources) Overweight in adulthood with body mass index of 25 or more but less than 30 04-29-2023 Episodic Other screening for suspected conditions (not mental disorders or infectious disease) (3 sources) Abnormal finding on evaluation procedure; Translations: [Abnormal results of function studies of other organs and systems] Onset: Episodic Residual codes; unclassified (4 sources) Device in situ 06-17-2023 Episodic Residual codes; unclassified (16 sources) At risk of disease; Translations: [Other specified personal risk factors, not elsewhere classified] Onset: 4 04-01-2024 Episodic Residual codes; unclassified (2 sources) At risk of healthcare associated infection; Translations: [Other specified personal risk factors, not elsewhere classified] Onset: 4 04-06-2024 Episodic Residual codes; unclassified (1 source) Personal history of other medical treatment; Translations: [History of engineered cell therapy infusion] Onset: Episodic Thyroid disorders (20 sources) Hypothyroidism; Translations: [Hypothyroidism, unspecified] Onset: 3 08-03-2015 Chronic Unclassified (1 source) Patient encounter status; Translations: [Encounter for screening for lung cancer] Unclassified (1 source) Confused Onset: Past or Other Problems Problem Classification Problem Date Documented Da te Episodic/Chronic Coagulation and hemorrhagic disorders (20 sources) Platelet count below reference range; Translations: [Thrombocytopenia, unspecified] Onset: 08-06-2023 Resolved: 03-09-2024 08-06-2023 Chronic Complications of surgical procedures or medical care (16 sources) Other and unspecified complications of medical care, not elsewhere classified; 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)] Onset: 04-15-2024 Resolved: 04-17-2024 04-17-2024 Episodic Headache; including migraine (16 sources) Headache; Translations: [Headache] Onset: 04-14-2024 Resolved: 04-14-2024 04-14-2024 Episodic Nausea and vomiting (18 sources) Chemotherapy-induce d nausea and vomiting; Translations: [Nausea with vomiting, unspecified] Onset: 04-06-2024 04-01-2024 Episodic Other aftercare (1 source) Encounter for therapeutic drug level monitoring; Translations: [Encounter for monitoring cardiotoxic drug therapy] Onset: 02-24-2024 Episodic Other aftercare (1 source) 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; Translations: [Encounter for monitoring cardiotoxic drug therapy] Onset: 02-24-2024 Episodic Other gastrointestinal disorders (16 sources) Diarrhea; Translations: [Diarrhea, unspecified] Onset: 04-11-2024 04-11-2024 Episodic Other hematologic conditions (1 source) Personal history of diseases of the blood and blood-forming organs and certain disorders involving the immune mechanism; Translations: [Personal history of diseases of blood and blood-forming organs] Onset: 02-24-2024 Episodic Other lower respiratory disease (16 sources) Rib pain; Translations: [Pleurodynia] Onset: 04-14-2024 Resolved: 04-14-2024 04-14-2024 Episodic Residual codes; unclassified (20 sources) Past history of procedure; Translations: [Personal history of other medical treatment] Onset: 04-06-2024 04-06-2024 Episodic Residual codes; unclassified (16 sources) Edema of right lower limb; Translations: [Localized edema] Onset: 04-07-2024 04-09-2024 Episodic Residual codes; unclassified (16 sources) At risk for infection; Translations: [Other specified personal risk factors, not elsewhere classified] Onset: 04-06-2024 04-23-2024 Episodic Results Test Name Value Interpretation Reference Range Facility CNOVSPon 07-19-2024 CNOVSP Normal [facility] Surgery Office/Clini c Noteon 07-14-2024 General Surgery Office/Clinic Note General Surgery Office/Clinic Note Chief Complaint colonoscopy follow up HPI Staff 21 day post operative follow up post colonoscopy with descending, sigmoid and rectal polypectomies x 4. History of Present Illness s/p colonoscopy with polypectomy x 4, 1 cm tubulovillous adenoma in sigmoid, other 3 were tubular adenomas; doing well, denies abd pain or blood in stools. Review of Systems ROS - Provider Constitutional: [...] been reviewed and are negative or noncontributory. Assessment/Plan 1. Tubulovillous adenoma of colon (D12.6: Benign neoplasm of colon, unspecified) plan surveillance colonoscopy in 3 years, call sooner if problems/questions. 2. Tubular adenoma of rectum (D12.8: Benign neoplasm of rectum) see # 1 3. Benign neoplasm of descending colon (D12.4: Benign neoplasm of descending colon) see # 1 Follow-up No qualifying data available Problem List/Past Medical History Ongoing Abnormal PET scan of colon BMI 26.0-26.9,adult Diffuse large B-cell lymphoma Encounter for care related to Port-a-Cath GERD (gastroesophageal reflux disease) Hypothyroidism Inguinal adenopathy Inguinal mass Overweight Tubular adenoma of colon Tubular adenoma of rectum Tubulovillous adenoma of colon Historical No qualifying data Procedure/Surgical History Colonoscopy (06/23/2024), Excision of inguinal lymph nodes (12/17/2023), Insertion of implantable venous access port (05/28/2023), Biopsy of inguinal lymph node (05/07/2023), Thoracentesis (01/28/2002), Bronchoscopy (01/20/2002), Biopsy of lymph node. Medications acyclovir 400 mg Tab, 400 mg= 1 tab(s), Oral, BID Fish Oil levothyroxine 125 mcg (0.125 mg) Tab, 125 mcg= 1 tab(s), Oral, Daily Multi Vitamins oral tablet, 1 tab(s), Oral, Daily sulfamethoxazole-trimethopri m 800 mg-160 mg Tab, 1 tab(s), Oral, [...] inactivated - Not Given Patient Refuses Normal [facility] Comment on above: Result Comment: Elec tronically Signed By: MIGUEL LOFTON, Chiquita R\.br\Date and Time Signed: 07/14/24 14:59 EDT Reminderson 07-14-2024 Reminders Reminders From: Ada Belle LPN To: N - Clinical; Sent: 07/14/2024 14:58:46 EDT Show up: 05/23/2027 07:00:00 EDT Subject: colonoscopy recall Due Date/Time: 06/23/2027 07:00:00 EDT Reminder/Recall Patient due for surveillance colonoscopy 06/23/2027 due to history of colon polyps. Normal [facility] CBC W Auto Differential pane l (Bld)on 07-07-2024 Basophils (Bld) [#/Vol] [facility] Basophils/100 WBC (Bld) 0.8 % [facility] Differential cell count method Nom (Bld) Auto [facility] Eosinophils (Bld) [#/Vol] 0.04 10*3/uL [facility] Eosinophils/100 WBC (Bld) 1.6 % [facility] Erythrocyte distribution width (RBC) [Ratio] 14.8 % 11.5 - 15.0 % [facility] Hematocrit (Bld) [Volume fraction] 36.2 % Low 39.0 - 51.0 % [facility] Hemoglobin (Bld) [Mass/Vol] 13.2 g/dL 13.0 - 17.0 g/dL [facility] Immature granulocytes (Bld) [#/Vol] [facility] Immature granulocytes/100 WBC (Bld) 0.8 % [facility] Interpretation and review of laboratory results Abnormal [facility] Lymphocytes (Bld) [#/Vol] 0.28 10*3/uL Low [facility] Lymphocytes/100 WBC (Bld) 10.9 % [facility] MCH (RBC) [Entitic mass] 36.9 pg High 26.0 - 34.0 pg [facility] MCHC (RBC) [Mass/Vol] 36.5 g/dL High 30.5 - 36.0 g/dL [facility] MCV (RBC) [Entitic vol] 101.1 fL High 80.0 - 100.0 fL [facility] Monocytes (Bld) [#/Vol] 0.57 10*3/uL [facility] Monocytes/100 WBC (Bld) 22.3 % [facility] Neutrophils (Bld) [#/Vol] 1.63 10*3/uL [facility] Neutrophils/100 WBC (Bld) 63.6 % [facility] Nucleated RBC (Bld) [#/Vol] NINF [facility] Nucleated RBC/100 WBC (Bld) [Ratio] 0.0 % /100 WBC [facility] Platelet mean volume (Bld) [Entitic vol] 9.7 fL 9.0 - 12.7 fL [facility] Platelets (Bld) [#/Vol] 128 10*3/uL Low [facility] RBC (Bld) [#/Vol] 3.58 10*6/uL Low 4.20 - 6.00 m/uL [facility] WBC (Bld) [#/Vol] 2.56 10*3/uL Low [facility] Basophils (Bld) [#/Vol] 10*3/uL Normal <0.11 [facility] Comment on above: Order Comment: Speci men Type: BLOOD SPECIMENOrdering Facility: [facility] Address: [address] [place] [address] Performed By: #### 5 7021-8 ####[facility] LABIA [id number] [place] [address] Basophils/100 WBC (Bld) 0.8 % Normal [facility] Comment on above: Order Comment: Speci men Type: BLOOD SPECIMENOrdering Facility: [facility] Address: [address] [place] [address] Performed By: #### 5 7021-8 ####[facility] LABCLIA [id number] [place] [address] Differential cell count method Nom (Bld) Auto Normal [facility] Comment on above: Order Comment: Speci men Type: BLOOD SPECIMENOrdering Facility: [facility] Address: [address] [place] [address] Performed By: #### 5 7021-8 ####[facility] LABCLIA [id number] [place] [address] Eosinophils (Bld) [#/Vol] 0.04 10*3/uL Normal <0.46 [facility] Comment on above: Order Comment: Speci men Type: BLOOD SPECIMENOrdering Facility: [facility] Address: [address] [place] [address] Performed By: #### 5 7021-8 ####[facility] LABCLIA [id number] [place] [address] Eosinophils/100 WBC (Bld) 1.6 % Normal [facility] Comment on above: Order Comment: Speci men Type: BLOOD SPECIMENOrdering Facility: [facility] Address: [address] [place] [address] Performed By: #### 5 7021-8 ####[facility] LABCLIA [id number] [place] [address] Erythrocyte distribution width (RBC) [Ratio] 14.8 % Normal 11.5-15.0 [facility] Comment on above: Order Comment: Speci men Type: BLOOD SPECIMENOrdering Facility: [facility] Address: [address] [place] [address] Performed By: #### 5 7021-8 ####[facility] LABCLIA [id number] [place] [address] Hematocrit (Bld) [Volume fraction] 36.2 % Low 39.0-51.0 [facility] Comment on above: Order Comment: Speci men Type: BLOOD SPECIMENOrdering Facility: [facility] Address: [address] [place] [address] Performed By: #### 5 7021-8 ####[facility] LABCLIA [id number] [place] [address] Hemoglobin (Bld) [Mass/Vol] 13.2 g/dL Normal 13.0-17.0 [facility] Comment on above: Order Comment: Speci men Type: BLOOD SPECIMENOrdering Facility: [facility] Address: [address] [place] [address] Performed By: #### 5 7021-8 ####[facility] LABCLIA [id number] [place] [address] Immature granulocytes (Bld) [#/Vol] 10*3/uL Normal <0.10 [facility] Comment on above: Order Comment: Speci men Type: BLOOD SPECIMENOrdering Facility: [facility] Address: [address] [place] [address] Performed By: #### 5 7021-8 ####[facility] LABCLIA [id number] [place] [address] Immature granulocytes/100 WBC (Bld) 0.8 % Normal [facility] Comment on above: Order Comment: Speci men Type: BLOOD SPECIMENOrdering Facility: [facility] Address: [address] [place] [address] Performed By: #### 5 7021-8 ####[facility] LABCLIA [id number] [place] [address] Lymphocytes (Bld) [#/Vol] 0.28 10*3/uL Low 1.00-4.00 [facility] Comment on above: Order Comment: Speci men Type: BLOOD SPECIMENOrdering Facility: [facility] Address: [address] [place] [address] Performed By: #### 5 7021-8 ####[facility] LABCLIA [id number] [place] [address] Lymphocytes/100 WBC (Bld) 10.9 % Normal [facility] Comment on above: Order Comment: Speci men Type: BLOOD SPECIMENOrdering Facility: [facility] Address: [address] [place] [address] Performed By: #### 5 7021-8 ####[facility] LABCLIA [id number] [place] [address] MCH (RBC) [Entitic mass] 36.9 pg High 26.0-34.0 [facility] Comment on above: Order Comment: Speci men Type: BLOOD SPECIMENOrdering Facility: [facility] Address: [address] [place] [address] Performed By: #### 5 7021-8 ####[facility] LABCLIA [id number] [place] [address] MCHC (RBC) [Mass/Vol] 36.5 g/dL High 30.5-36.0 [facility] Comment on above: Order Comment: Speci men Type: BLOOD SPECIMENOrdering Facility: [facility] Address: [address] [place] [address] Performed By: #### 5 7021-8 ####[facility] LABCLIA [id number] [place] [address] MCV (RBC) [Entitic vol] 101.1 fL High 80.0-100.0 [facility] Comment on above: Order Comment: Speci men Type: BLOOD SPECIMENOrdering Facility: [facility] Address: [address] [place] [address] Performed By: #### 5 7021-8 ####[facility] LABCLIA [id number] [place] [address] Monocytes (Bld) [#/Vol] 0.57 10*3/uL Normal <0.87 [facility] Comment on above: Order Comment: Speci men Type: BLOOD SPECIMENOrdering Facility: [facility] Address: [address] [place] [address] Performed By: #### 5 7021-8 ####[facility] LABCLIA [id number] [place] [address] Monocytes/100 WBC (Bld) 22.3 % Normal [facility] Comment on above: Order Comment: Speci men Type: BLOOD SPECIMENOrdering Facility: [facility] Address: [address] [place] [address] Performed By: #### 5 7021-8 ####[facility] LABCLIA [id number] [place] [address] Neutrophils (Bld) [#/Vol] 1.63 10*3/uL Normal 1.45-7.50 [facility] Comment on above: Order Comment: Speci men Type: BLOOD SPECIMENOrdering Facility: [facility] Address: [address] [place] [address] Performed By: #### 5 7021-8 ####[facility] LABCLIA [id number] [place] [address] Neutrophils/100 WBC (Bld) 63.6 % Normal [facility] Comment on above: Order Comment: Speci men Type: BLOOD SPECIMENOrdering Facility: [facility] Address: [address] [place] [address] Performed By: #### 5 7021-8 ####[facility] LABCLIA [id number] [place] [address] Nucleated RBC (Bld) [#/Vol] 10*3/uL Normal <0.01 [facility] Comment on above: Order Comment: Speci men Type: BLOOD SPECIMENOrdering Facility: [facility] Address: [address] [place] [address] Performed By: #### 5 7021-8 ####[facility] LABCLIA [id number] [place] [address] Nucleated RBC/100 WBC (Bld) [Ratio] 0.0 /100 WBC Normal [facility] Comment on above: Order Comment: Speci men Type: BLOOD SPECIMENOrdering Facility: [facility] Address: [address] [place] [address] Performed By: #### 5 7021-8 ####[facility] LABIA [id number] [place] [address] Platelet mean volume (Bld) [Entitic vol] 9.7 fL Normal 9.0-12.7 [facility] Comment on above: Order Comment: Speci men Type: BLOOD SPECIMENOrdering Facility: [facility] Address: [address] [place] [address] Performed By: #### 5 7021-8 ####[facility] LABCLIA [id number] [place] [address] Platelets (Bld) [#/Vol] 128 10*3/uL Low 150-400 [facility] Comment on above: Order Comment: Speci men Type: BLOOD SPECIMENOrdering Facility: [facility] Address: [address] [place] [address] Performed By: #### 5 7021-8 ####[facility] LABCLIA [id number] [place] [address] RBC (Bld) [#/Vol] 3.58 10*6/uL Low 4.20-6.00 [facility] Comment on above: Order Comment: Speci men Type: BLOOD SPECIMENOrdering Facility: [facility] Address: [address] [place] [address] Performed By: #### 5 7021-8 ####[facility] LABCLIA [id number] [place] [address] WBC (Bld) [#/Vol] 2.56 10*3/uL Low 3.70-11.00 [facility] Comment on above: Order Comment: Speci men Type: BLOOD SPECIMENOrdering Facility: [facility] Address: [address] [place] [address] Performed By: #### 5 7021-8 ####[facility] LABCLIA [id number] [place] [address] Comprehensive metabolic 2000 panelOrdered By: Benson Alcaraz on 07-07-2024 Albumin [Mass/Vol] 4.6 g/dL 3.9 - 4.9 g/dL [facility] ALP [Catalytic activity/Vol] 102 U/L 38 - 113 U/L [facility] ALT [Catalytic activity/Vol] 32 U/L 10 - 54 U/L [facility] Anion gap [Moles/Vol] 13 mmol/L 8 - 15 mmol/L [facility] AST [Catalytic activity/Vol] [facility] Comment on above: Unable to assay. Garo calvillo significantly hemolyzed. Bilirubin [Mass/Vol] 0.5 mg/dL 0.2 - 1 .3 mg/dL [facility] Calcium [Mass/Vol] 9.3 mg/dL 8.5 - 10. 2 mg/dL [facility] Chloride [Moles/Vol] 106 mmol/L 98 - 10 7 mmol/L [facility] CO2 [Moles/Vol] 20 mmol/L Low 22 - 30 mmol/L [facility] Creatinine [Mass/Vol] 0.91 mg/dL 0.73 - 1.22 mg/dL [facility] GFR/1.73 sq M.predicted among non-blacks MDRD (S/P/Bld) [Vol rate/Area] 92 mL/min/{1.73_m2} - PINF [facility] Comment on above: Estimated Glomerular Filtration [...] not accurately reflect actual GFR. Glucose [Mass/Vol] 98 mg/dL 74 - 99 mg/dL [facility] Comment on above: The [place] Diabete s Association (ADA) provides guidance for [...] Standards of Medical Care in Diabetes 2016, [place] [employer] Association. Diabetes Care. 2016.39(Suppl 1). Interpretation and review of laboratory results Abnormal [facility] Potassium [Moles/Vol] 4.5 mmol/L 3.7 - 5.1 mmol/L [facility] Protein [Mass/Vol] 6.1 g/dL Low 6.3 - 8.0 g/dL [facility] Sodium [Moles/Vol] 139 mmol/L 136 - 144 mmol/L [facility] Urea nitrogen [Mass/Vol] 19 mg/dL 9 - 24 mg/dL [facility] Comprehensive metabolic 2000 panelon 07-07-2024 Albumin [Mass/Vol] 4.6 g/dL Normal 3.9-4.9 [facility] Comment on above: Order Comment: Speci men Type: BLOOD SPECIMENOrdering Facility: [facility] Address: [address] [place] [address] Performed By: #### 1 9123-9, 97454-3 ####[facility] LABIA [id number] [place] [address] ALP [Catalytic activity/Vol] 102 U/L Normal 38-113 [facility] Comment on above: Order Comment: Speci men Type: BLOOD SPECIMENOrdering Facility: [facility] Address: [address] [place] [address] Performed By: #### 1 9123-9, 11413-2 ####[facility] LABCLIA [id number] [place] [address] ALT [Catalytic activity/Vol] 32 U/L Normal 10-54 [facility] Comment on above: Order Comment: Speci men Type: BLOOD SPECIMENOrdering Facility: [facility] Address: [address] [place] [address] Performed By: #### 1 9123-9, 50204-5 ####[facility] LABCLIA [id number] [place] [address] Anion gap [Moles/Vol] 13 mmol/L Normal 8-15 [facility] Comment on above: Order Comment: Speci men Type: BLOOD SPECIMENOrdering Facility: [facility] Address: [address] [place] [address] Performed By: #### 1 9123-9, 98538-1 ####[facility] LABCLIA [id number] [place] [address] AST [Catalytic activity/Vol] Normal [facility] Comment on above: Order Comment: Speci men Type: BLOOD SPECIMENOrdering Facility: [facility] Address: [address] [place] [address] Result Comment: Unab le to assay. Specimen significantly hemolyzed. Performed By: #### 1 9123-9, 99090-8 ####[facility] LABCLIA [id number] [place] [address] Bilirubin [Mass/Vol] 0.5 mg/dL Normal 0.2-1.3 [facility] Comment on above: Order Comment: Speci men Type: BLOOD SPECIMENOrdering Facility: [facility] Address: [address] [place] [address] Performed By: #### 1 9123-9, 49602-1 ####[facility] LABIA [id number] [place] [address] Calcium [Mass/Vol] 9.3 mg/dL Normal 8.5-10.2 [facility] Comment on above: Order Comment: Speci men Type: BLOOD SPECIMENOrdering Facility: [facility] Address: [address] [place] [address] Performed By: #### 1 9123-9, 45411-0 ####[facility] LABIA [id number] [place] [address] Chloride [Moles/Vol] 106 mmol/L Normal 98-107 [facility] Comment on above: Order Comment: Speci men Type: BLOOD SPECIMENOrdering Facility: [facility] Address: [address] [place] [address] Performed By: #### 1 9123-9, 23164-0 ####[facility] LABCLIA [id number] [place] [address] CO2 [Moles/Vol] 20 mmol/L Low 22-30 [facility] Comment on above: Order Comment: Speci men Type: BLOOD SPECIMENOrdering Facility: [facility] Address: [address] [place] [address] Performed By: #### 1 9123-9, 95625-6 ####[facility] LABIA [id number] [place] [address] Creatinine [Mass/Vol] 0.91 mg/dL Normal 0.73-1.22 [facility] Comment on above: Order Comment: Speci men Type: BLOOD SPECIMENOrdering Facility: [facility] Address: [address] [place] [address] Performed By: #### 1 9123-9, 68533-0 ####[facility] LABIA [id number] [place] [address] Creatinine and Glomerular filtration rate.predicted panel (S/P/Bld) 92 mL/min/1.73m??? Normal >=60 [facility] Comment on above: Order Comment: Dottyi men Type: BLOOD SPECIMENOrdering Facility: [facility] Address: [address] [place] [address] Result Comment: Carol mated Glomerular Filtration Rate [...] actual GFR. Performed By: #### 1 9123-9, 83457-0 ####[facility] LABIA [id number] [place] [address] Glucose [Mass/Vol] 98 mg/dL Normal 74-99 [facility] Comment on above: Order Comment: Speci men Type: BLOOD SPECIMENOrdering Facility: [facility] Address: [address] [place] [address] Result Comment: The [place] Diabetes Association (ADA) provides guidance for cutoff [...] Standards of Medical Care in Diabetes 2016, [place] Diabetes [employer]. Diabetes Care. 2016.39(Suppl 1). Performed By: #### 1 9123-9, ####[facility] LABCLIA [id number] [place] [address] Potassium [Moles/Vol] 4.5 mmol/L Normal 3.7-5.1 [facility] Comment on above: Order Comment: Speci men Type: BLOOD SPECIMENOrdering Facility: [facility] Address: [address] [place] [address] Performed By: #### 1 239, ####[facility] LABIA [id number] [place] [address] Protein [Mass/Vol] 6.1 g/dL Low 6.3-8.0 [facility] Comment on above: Order Comment: Speci men Type: BLOOD SPECIMENOrdering Facility: [facility] Address: [address] [place] [address] Performed By: #### 1 239, ####[facility] LABCLIA [id number] [place] [address] Sodium [Moles/Vol] 139 mmol/L Normal 136-144 [facility] Comment on above: Order Comment: Speci men Type: BLOOD SPECIMENOrdering Facility: [facility] Address: [address] [place] [address] Performed By: #### 1 91239, ####[facility] LABCLIA [id number] [place] [address] Urea nitrogen [Mass/Vol] 19 mg/dL Normal 9-24 [facility] Comment on above: Order Comment: Speci men Type: BLOOD SPECIMENOrdering Facility: [facility] Address: [address] [place] [address] Performed By: #### 1 9123-9, 01415-8 ####[facility] LABCLIA [id number] [place] [address] GLUCOSE, BLOOD (POC)on 07-07 Glucose [Mass/Vol] 92 mg/dL 74 - 99 mg/dL [facility] Comment on above: Location:[facility], [address] , [place], [place], [address] The Accu-Chek Inform II glucose meter has not been approved for testing on patients receiving intensive medical intervention or therapy and results from this point of care glucose test should not be used for patient management decisions in these cases. Inaccurate results may also occur from other interfering factors, such as N-acetylcysteine (blood concentrations of greater than 5mg/dL), galactose, extremes of hematocrit (<10 or >65), or high doses of ascorbic acid (vitamin C) greater than 3mg/dL. Consider alternate testing mechanisms (e.g. core lab, blood gas instrument) in the above situations. [facility] MAGNESIUMon 07-07-2024 Magnesium [Mass/Vol] 2.1 mg/dL 1.7 - 2 .3 mg/dL [facility] Magnesium SerPl-mCncon 07-07 Magnesium [Mass/Vol] 2.1 mg/dL Normal 1.7-2.[address] [facility] Comment on above: Order Comment: Speci men Type: BLOOD SPECIMENOrdering Facility: [facility] Address: [address] [place] [address] Performed By: #### 1 9123-9, 82597-7 ####[facility] LABCLIA [id number] [place] [address] Magnesium [Mass/Vol]on 07-07 Interpretation and review of laboratory results Normal [facility] NM PET/CT SKULL-THIGH SUBQon 07-07-2024 NM PET/CT SKULL-THIGH SUBQ Normal [facility] PET+CT Guidance for localiza tion of tumor of Skull base to mid-thigh-- W 18F-FDG Bella 07-07-2024 IMPRESSION: VASILE DISEASE: No metabolically active lymphadenopathy. EXTRANODAL FINDINGS: No metabolically active metastases. Deauville criteria score: 1 Transcribe Date/Time: Jul 07 2024 11:25P Dictated by: URBANO LAURA MD This examination was interpreted and the report reviewed and electronically signed by: URBANO LAURA MD on Jul 07 2024 11:39PM EST Thank you for allowing us to participate in the care of your patient. Should there be any questions regarding this interpretation, please call [phone]. If you are unable to reach us at the number above, please feel free to contact [facility] eRadiology at [phone]. 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 TECHNIQUE: Radiopharmaceutical was administered intravenously followed by PET imaging from the eyes to thighs. Free breathing, low dose CT of the same body region was acquired without IV contrast for attenuation correction and anatomic localization. Unenhanced imaging is limited for the evaluation of some pathology and the acquired CT was not designed to produce diagnostic CT scan quality. Physiologic/non-pathologic uptake in some body regions could confound or obscure some pathology. * CT Dose-Length Product (DLP): 226 mGy*cm * CT Dose Reduction Employed: Yes * Blood glucose: 92 mg/dL * Injected activity: 10.8 mCi * Uptake Time: 51 minutes * Radiopharmaceutical: I90-Pizwqilojmwtjtuymc (FDG) COMPARISON: PET/CT 05/07/2024 RESULT: REFERENCES: FDG uptake is used as a surrogate marker for glucose metabolism. All reported standardized uptake values represent maximum SUV (SUVmax) per body weight, unless otherwise specified. SUV reference values, as follows: * Blood Pool (Descending Aorta): SUVmax 2.4 * Background Liver: SUVmax 4; SUVmean 2.7 Localizer Images: No additional findings. HEAD AND NECK: Head: No radiotracer avid lesion or mass effect in the imaged intracranial compartment. Aerodigestive Tract: No radiotracer avid lesion. Lymph Nodes: No radiotracer avid lymphadenopathy. Neck Soft Tissues: No radiotracer avid thyroid nodule. CHEST: Lungs & Pleura: No radiotracer avid mass, nodule, or consolidation. No pleural effusion. Atelectatic changes in the lungs. Lymph Nodes: No radiotracer avid lymphadenopathy. Mediastinum: No radiotracer avid mass. Cardiovascular: Blood pool activity. No pericardial effusion. Normal heart size. Right-sided chest port. Chest Wall: No radiotracer avid soft tissue lesion. ABDOMEN AND PELVIS: Hepatobiliary: No radiotracer avid lesion. No measurable mass. Spleen: No radiotracer avid lesion. No splenomegaly. Pancreas: No radiotracer avid lesion. Adrenals: No radiotracer avid nodule. Urinary Tract: Physiologic radiotracer excretion in the renal collecting systems and urinary bladder. No hydronephrosis. GI Tract: No radiotracer avid lesion. No bowel dilation. Peritoneum: No radiotracer avid lesion. No ascites. Lymph Nodes: No radiotracer avid lymphadenopathy. Vasculature: Blood pool activity. Pelvic Organs: No radiotracer avid lesion. Enlarged prostate. Surgical changes in the right groin. Nonavid right inguinal lymph node MUSCULOSKELETAL: Bones: No radiotracer avid lesion. No lytic or sclerotic lesion. Soft Tissues: No radiotracer avid lesion. Asymmetry in right thigh size compared to left. DIVISION OF RADIOLOGY Provider, 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 TECHNIQUE: Radiopharmaceutical was administered intravenously followed by PET imaging from the eyes to thighs. Free breathing, low dose CT of the same body region was acquired without IV contrast for attenuation correction and anatomic localization. Unenhanced imaging is limited for the evaluation of some pathology and the acquired CT was not designed to produce diagnostic CT scan quality. Physiologic/non-pathologic uptake in some body regions could confound or obscure some pathology. * CT Dose-Length Product (DLP): 226 mGy*cm * CT Dose Reduction Employed: Yes * Blood glucose: 92 mg/dL * Injected activity: 10.8 mCi * Uptake Time: 51 minutes * Radiopharmaceutical: T13-Idydvxraapbirivhhs (FDG) COMPARISON: PET/CT 05/07/2024 RESULT: REFERENCES: FDG uptake is used as a surrogate marker for glucose metabolism. All reported standardized uptake values represent maximum SUV (SUVmax) per body weight, unless otherwise specified. SUV reference values, as follows: * Blood Pool (Descending Aorta): SUVmax 2.4 * Background Liver: SUVmax 4; SUVmean 2.7 Localizer Images: No additional findings. HEAD AND NECK: Head: No radiotracer avid lesion or mass effect in the imaged intracranial compartment. Aerodigestive Tract: No radiotracer avid lesion. Lymph Nodes: No radiotracer avid lymphadenopathy. Neck Soft Tissues: No radiotracer avid thyroid nodule. CHEST: Lungs & Pleura: No radiotracer avid mass, nodule, or consolidation. No pleural effusion. Atelectatic changes in the lungs. Lymph Nodes: No radiotracer avid lymphadenopathy. Mediastinum: No radiotracer avid mass. Cardiovascular: Blood pool activity. No pericardial effusion. Normal heart size. Right-sided chest port. Chest Wall: No radiotracer avid soft tissue lesion. ABDOMEN AND PELVIS: Hepatobiliary: No radiotracer avid lesion. No measurable mass. Spleen: No radiotracer avid lesion. No splenomegaly. Pancreas: No radiotracer avid lesion. Adrenals: No radiotracer avid nodule. Urinary Tract: Physiologic radiotracer excretion in the renal collecting systems and urinary bladder. No hydronephrosis. GI Tract: No radiotracer avid lesion. No bowel dilation. Peritoneum: No radiotracer avid lesion. No ascites. Lymph Nodes: No radiotracer avid lymphadenopathy. Vasculature: Blood pool activity. Pelvic Organs: No radiotracer avid lesion. Enlarged prostate. Surgical changes in the right groin. Nonavid right inguinal lymph node MUSCULOSKELETAL: Bones: No radiotracer avid lesion. No lytic or sclerotic lesion. Soft Tissues: No radiotracer avid lesion. Asymmetry in right thigh size compared to left. IMPRESSION IMPRESSION: VASILE DISEASE: No metabolically active lymphadenopathy. EXTRANODAL FINDINGS: No metabolically active metastases. Deauville criteria score: 1 Transcribe Date/Time: Jul 07 2024 11:25P Dictated by: URBANO LAURA MD This examination was interpreted and the report reviewed and electronically signed by: URBANO LAURA MD on Jul 07 2024 11:39PM EST Thank you for allowing us to participate in the care of your patient. Should there be any questions regarding this interpretation, please call [phone]. If you are unable to reach us at the number above, please feel free to contact [facility] eRadiology at [phone]. [facility] Radiology Study observation (narrative) [facility] PET+CT Guidance for localiza tion of tumor of Skull base to mid-thigh-- W 18F-FDG IVOrdered By: [facility] Provider on 07-07-2024 [facility] CBC W Auto Differential pane l (Bld)on 06-17-2024 Basophils (Bld) [#/Vol] [facility] Basophils/100 WBC (Bld) 0.7 % [facility] Differential cell count method Nom (Bld) Auto [facility] Eosinophils (Bld) [#/Vol] 0.05 10*3/uL [facility] Eosinophils/100 WBC (Bld) 1.8 % [facility] Erythrocyte distribution width (RBC) [Ratio] 18.7 % High 11.5 - 15.0 % [facility] Hematocrit (Bld) [Volume fraction] 33.8 % Low 39.0 - 51.0 % [facility] Hemoglobin (Bld) [Mass/Vol] 12.2 g/dL Low 13.0 - 17.0 g/dL [facility] Immature granulocytes (Bld) [#/Vol] [facility] Immature granulocytes/100 WBC (Bld) 0.4 % [facility] Interpretation and review of laboratory results Abnormal [facility] Lymphocytes (Bld) [#/Vol] 0.25 10*3/uL Low [facility] Lymphocytes/100 WBC (Bld) 9.2 % [facility] MCH (RBC) [Entitic mass] 36.0 pg High 26.0 - 34.0 pg [facility] MCHC (RBC) [Mass/Vol] 36.1 g/dL High 30.5 - 36.0 g/dL [facility] MCV (RBC) [Entitic vol] 99.7 fL 80.0 - 100.0 fL [facility] Monocytes (Bld) [#/Vol] 0.59 10*3/uL [facility] Monocytes/100 WBC (Bld) 21.7 % [facility] Neutrophils (Bld) [#/Vol] 1.80 10*3/uL [facility] Neutrophils/100 WBC (Bld) 66.2 % [facility] Nucleated RBC (Bld) [#/Vol] NINF [facility] Nucleated RBC/100 WBC (Bld) [Ratio] 0.0 % /100 WBC [facility] Platelet mean volume (Bld) [Entitic vol] 9.1 fL 9.0 - 12.7 fL [facility] Platelets (Bld) [#/Vol] 119 10*3/uL Low [facility] RBC (Bld) [#/Vol] 3.39 10*6/uL Low 4.20 - 6.00 m/uL [facility] WBC (Bld) [#/Vol] 2.72 10*3/uL Low [facility] Basophils (Bld) [#/Vol] 10*3/uL Normal <0.11 [facility] Comment on above: Order Comment: Speci men Type: BLOOD SPECIMENOrdering Facility: [facility] Address: [address] [place] [address] Performed By: #### 5 7021-8 ####[facility] LABCLIA [id number] [place] [address] Basophils/100 WBC (Bld) 0.7 % Normal [facility] Comment on above: Order Comment: Speci men Type: BLOOD SPECIMENOrdering Facility: [facility] Address: [address] [place] [address] Performed By: #### 5 7021-8 ####[facility] LABCLIA [id number] [place] [address] Differential cell count method Nom (Bld) Auto Normal [facility] Comment on above: Order Comment: Speci men Type: BLOOD SPECIMENOrdering Facility: [facility] Address: [address] [place] [address] Performed By: #### 5 7021-8 ####[facility] LABCLIA [id number] [place] [address] Eosinophils (Bld) [#/Vol] 0.05 10*3/uL Normal <0.46 [facility] Comment on above: Order Comment: Speci men Type: BLOOD SPECIMENOrdering Facility: [facility] Address: [address] [place] [address] Performed By: #### 5 7021-8 ####[facility] LABCLIA [id number] [place] [address] Eosinophils/100 WBC (Bld) 1.8 % Normal [facility] Comment on above: Order Comment: Speci men Type: BLOOD SPECIMENOrdering Facility: [facility] Address: [address] [place] [address] Performed By: #### 5 7021-8 ####[facility] LABCLIA [id number] [place] [address] Erythrocyte distribution width (RBC) [Ratio] 18.7 % High 11.5-15.0 [facility] Comment on above: Order Comment: Speci men Type: BLOOD SPECIMENOrdering Facility: [facility] Address: [address] [place] [address] Performed By: #### 5 7021-8 ####[facility] LABCLIA [id number] [place] [address] Hematocrit (Bld) [Volume fraction] 33.8 % Low 39.0-51.0 [facility] Comment on above: Order Comment: Speci men Type: BLOOD SPECIMENOrdering Facility: [facility] Address: [address] [place] [address] Performed By: #### 5 7021-8 ####[facility] LABCLIA [id number] [place] [address] Hemoglobin (Bld) [Mass/Vol] 12.2 g/dL Low 13.0-17.0 [facility] Comment on above: Order Comment: Speci men Type: BLOOD SPECIMENOrdering Facility: [facility] Address: [address] [place] [address] Performed By: #### 5 7021-8 ####[facility] LABCLIA [id number] [place] [address] Immature granulocytes (Bld) [#/Vol] 10*3/uL Normal <0.10 [facility] Comment on above: Order Comment: Speci men Type: BLOOD SPECIMENOrdering Facility: [facility] Address: [address] [place] [address] Performed By: #### 5 7021-8 ####[facility] LABCLIA [id number] [place] [address] Immature granulocytes/100 WBC (Bld) 0.4 % Normal [facility] Comment on above: Order Comment: Speci men Type: BLOOD SPECIMENOrdering Facility: [facility] Address: [address] [place] [address] Performed By: #### 5 7021-8 ####[facility] LABCLIA [id number] [place] [address] Lymphocytes (Bld) [#/Vol] 0.25 10*3/uL Low 1.00-4.00 [facility] Comment on above: Order Comment: Speci men Type: BLOOD SPECIMENOrdering Facility: [facility] Address: [address] [place] [address] Performed By: #### 5 7021-8 ####[facility] LABCLIA [id number] [place] [address] Lymphocytes/100 WBC (Bld) 9.2 % Normal [facility] Comment on above: Order Comment: Speci men Type: BLOOD SPECIMENOrdering Facility: [facility] Address: [address] [place] [address] Performed By: #### 5 7021-8 ####[facility] LABCLIA [id number] [place] [address] MCH (RBC) [Entitic mass] 36.0 pg High 26.0-34.0 [facility] Comment on above: Order Comment: Speci men Type: BLOOD SPECIMENOrdering Facility: [facility] Address: [address] [place] [address] Performed By: #### 5 7021-8 ####[facility] LABCLIA [id number] [place] [address] MCHC (RBC) [Mass/Vol] 36.1 g/dL High 30.5-36.0 [facility] Comment on above: Order Comment: Speci men Type: BLOOD SPECIMENOrdering Facility: [facility] Address: [address] [place] [address] Performed By: #### 5 7021-8 ####[facility] LABCLIA [id number] [place] [address] MCV (RBC) [Entitic vol] 99.7 fL Normal 80.0-100.0 [facility] Comment on above: Order Comment: Speci men Type: BLOOD SPECIMENOrdering Facility: [facility] Address: [address] [place] [address] Performed By: #### 5 7021-8 ####[facility] LABCLIA [id number] [place] [address] Monocytes (Bld) [#/Vol] 0.59 10*3/uL Normal <0.87 [facility] Comment on above: Order Comment: Speci men Type: BLOOD SPECIMENOrdering Facility: [facility] Address: [address] [place] [address] Performed By: #### 5 7021-8 ####[facility] LABCLIA [id number] [place] [address] Monocytes/100 WBC (Bld) 21.7 % Normal [facility] Comment on above: Order Comment: Speci men Type: BLOOD SPECIMENOrdering Facility: [facility] Address: [address] [place] [address] Performed By: #### 5 7021-8 ####[facility] LABCLIA [id number] [place] [address] Neutrophils (Bld) [#/Vol] 1.80 10*3/uL Normal 1.45-7.50 [facility] Comment on above: Order Comment: Speci men Type: BLOOD SPECIMENOrdering Facility: [facility] Address: [address] [place] [address] Performed By: #### 5 7021-8 ####[facility] LABCLIA [id number] [place] [address] Neutrophils/100 WBC (Bld) 66.2 % Normal [facility] Comment on above: Order Comment: Speci men Type: BLOOD SPECIMENOrdering Facility: [facility] Address: [address] [place] [address] Performed By: #### 5 7021-8 ####[facility] LABCLIA [id number] [place] [address] Nucleated RBC (Bld) [#/Vol] 10*3/uL Normal <0.01 [facility] Comment on above: Order Comment: Speci men Type: BLOOD SPECIMENOrdering Facility: [facility] Address: [address] [place] [address] Performed By: #### 5 7021-8 ####[facility] LABCLIA [id number] [place] [address] Nucleated RBC/100 WBC (Bld) [Ratio] 0.0 /100 WBC Normal [facility] Comment on above: Order Comment: Speci men Type: BLOOD SPECIMENOrdering Facility: [facility] Address: [address] [place] [address] Performed By: #### 5 7021-8 ####[facility] LABCLIA [id number] [place] [address] Platelet mean volume (Bld) [Entitic vol] 9.1 fL Normal 9.0-12.7 [facility] Comment on above: Order Comment: Speci men Type: BLOOD SPECIMENOrdering Facility: [facility] Address: [address] [place] [address] Performed By: #### 5 7021-8 ####[facility] LABCLIA [id number] [place] [address] Platelets (Bld) [#/Vol] 119 10*3/uL Low 150-400 [facility] Comment on above: Order Comment: Speci men Type: BLOOD SPECIMENOrdering Facility: [facility] Address: [address] [place] [address] Performed By: #### 5 7021-8 ####[facility] LABIA [id number] [place] [address] RBC (Bld) [#/Vol] 3.39 10*6/uL Low 4.20-6.00 [facility] Comment on above: Order Comment: Speci men Type: BLOOD SPECIMENOrdering Facility: [facility] Address: [address] [place] [address] Performed By: #### 5 7021-8 ####[facility] LABIA [id number] [place] [address] WBC (Bld) [#/Vol] 2.72 10*3/uL Low 3.70-11.00 [facility] Comment on above: Order Comment: Speci men Type: BLOOD SPECIMENOrdering Facility: [facility] Address: [address] [place] [address] Performed By: #### 5 7021-8 ####[facility] LABIA [id number] [place] [address] CNOVSPon 06-17-2024 CNOVSP Normal [facility] metabolic 2000 panelOrdered By: Aurora Moreland on 06-17-2024 Albumin [Mass/Vol] 4.5 g/dL 3.9 - 4.9 g/dL [facility] ALP [Catalytic activity/Vol] 106 U/L 38 - 113 U/L [facility] ALT [Catalytic activity/Vol] 29 U/L 10 - 54 U/L [facility] Anion gap [Moles/Vol] 9 mmol/L 8 - 15 mmol/L [facility] AST [Catalytic activity/Vol] 23 U/L 14 - 40 U/L [facility] Bilirubin [Mass/Vol] 0.5 mg/dL 0.2 - 1 .3 mg/dL [facility] Calcium [Mass/Vol] 9.5 mg/dL 8.5 - 10. 2 mg/dL [facility] Chloride [Moles/Vol] 109 mmol/L High 98 - 10 7 mmol/L [facility] CO2 [Moles/Vol] 24 mmol/L 22 - 30 mmol/L [facility] Creatinine [Mass/Vol] 1.19 mg/dL 0.73 - 1.22 mg/dL [facility] GFR/1.73 sq M.predicted among non-blacks MDRD (S/P/Bld) [Vol rate/Area] 67 mL/min/{1.73_m2} - PINF [facility] Comment on above: Estimated Glomerular Filtration [...] not accurately reflect actual GFR. Glucose [Mass/Vol] 98 mg/dL 74 - 99 mg/dL [facility] Comment on above: The [place] Diabete [employer] Association (ADA) provides guidance for [...] Standards of Medical Care in Diabetes 2016, [place] [employer]. Diabetes Care. 2016.39(Suppl 1). Interpretation and review of laboratory results Abnormal [facility] Potassium [Moles/Vol] 4.4 mmol/L 3.7 - 5.1 mmol/L [facility] Protein [Mass/Vol] 6.3 g/dL 6.3 - 8.0 g/dL [facility] Sodium [Moles/Vol] 142 mmol/L 136 - 144 mmol/L [facility] Urea nitrogen [Mass/Vol] 16 mg/dL 9 - 24 mg/dL [facility] Comprehensive metabolic 2000 panelon 06-17-2024 Albumin [Mass/Vol] 4.5 g/dL Normal 3.9-4.9 [facility] Comment on above: Order Comment: Speci men Type: BLOOD SPECIMENOrdering Facility: [facility] Address: [address] [place] [address] Performed By: #### 2 4323-8 ####[facility] LABCLIA [id number] [place] [address] ALP [Catalytic activity/Vol] 106 U/L Normal 38-113 [facility] Comment on above: Order Comment: Speci men Type: BLOOD SPECIMENOrdering Facility: [facility] Address: [address] [place] [address] Performed By: #### 2 4323-8 ####[facility] LABCLIA [id number] [place] [address] ALT [Catalytic activity/Vol] 29 U/L Normal 10-54 [facility] Comment on above: Order Comment: Speci men Type: BLOOD SPECIMENOrdering Facility: [facility] Address: [address] [place] [address] Performed By: #### 2 4323-8 ####[facility] LABCLIA [id number] [place] [address] Anion gap [Moles/Vol] 9 mmol/L Normal 8-15 [facility] Comment on above: Order Comment: Speci men Type: BLOOD SPECIMENOrdering Facility: [facility] Address: [address] [place] [address] Performed By: #### 2 4323-8 ####[facility] LABCLIA [id number] [place] [address] AST [Catalytic activity/Vol] 23 U/L Normal 14-40 [facility] Comment on above: Order Comment: Speci men Type: BLOOD SPECIMENOrdering Facility: [facility] Address: [address] [place] [address] Performed By: #### 2 4323-8 ####[facility] LABCLIA [id number] [place] [address] Bilirubin [Mass/Vol] 0.5 mg/dL Normal 0.2-1.3 [facility] Comment on above: Order Comment: Speci men Type: BLOOD SPECIMENOrdering Facility: [facility] Address: [address] [place] [address] Performed By: #### 2 4323-8 ####[facility] LABCLIA [id number] [place] [address] Calcium [Mass/Vol] 9.5 mg/dL Normal 8.5-10.2 [facility] Comment on above: Order Comment: Speci men Type: BLOOD SPECIMENOrdering Facility: [facility] Address: [address] [place] [address] Performed By: #### 2 4323-8 ####[facility] LABCLIA [id number] [place] [address] Chloride [Moles/Vol] 109 mmol/L High 98-107 [facility] Comment on above: Order Comment: Speci men Type: BLOOD SPECIMENOrdering Facility: [facility] Address: [address] [place] [address] Performed By: #### 2 4323-8 ####[facility] LABCLIA [id number] [place] [address] CO2 [Moles/Vol] 24 mmol/L Normal 22-30 [facility] Comment on above: Order Comment: Speci men Type: BLOOD SPECIMENOrdering Facility: [facility] Address: [address] [id number] Performed By: #### 2 4323-8 ####[facility] LABCLIA [id number] [place] [address] Creatinine [Mass/Vol] 1.19 mg/dL Normal 0.73-1.22 [facility] Comment on above: Order Comment: Speci men Type: BLOOD SPECIMENOrdering Facility: [facility] Address: [address] [place] [address] Performed By: #### 2 4323-8 ####[facility] LABCLIA [id number] [place] [address] Creatinine and Glomerular filtration rate.predicted panel (S/P/Bld) 67 mL/min/1.73m??? Normal >=60 [facility] Comment on above: Order Comment: Speci men Type: BLOOD SPECIMENOrdering Facility: [facility] Address: [address] [place] [address] Result Comment: Carol mated Glomerular Filtration Rate [...] actual GFR. Performed By: #### 2 4323-8 ####[facility] LABCLIA [id number] [place] [address] Glucose [Mass/Vol] 98 mg/dL Normal 74-99 [facility] Comment on above: Order Comment: Speci men Type: BLOOD SPECIMENOrdering Facility: [facility] Address: [address] [place] [address] Result Comment: The [place] Diabetes Association (ADA) provides guidance for cutoff [...] Standards of Medical Care in Diabetes 2016, [place] [employer]. Diabetes Care. 2016.39(Suppl 1). Performed By: #### 2 4323-8 ####[facility] LABCLIA [id number] [place] [address] Potassium [Moles/Vol] 4.4 mmol/L Normal 3.7-5.1 [facility] Comment on above: Order Comment: Speci men Type: BLOOD SPECIMENOrdering Facility: [facility] Address: [address] [place] [address] Performed By: #### 2 4323-8 ####[facility] LABCLIA [id number] [place] [address] Protein [Mass/Vol] 6.3 g/dL Normal 6.3-8.0 [facility] Comment on above: Order Comment: Speci men Type: BLOOD SPECIMENOrdering Facility: [facility] Address: [address] [place] [address] Performed By: #### 2 4323-8 ####[facility] LABCLIA [id number] [place] [address] Sodium [Moles/Vol] 142 mmol/L Normal 136-144 [facility] Comment on above: Order Comment: Speci men Type: BLOOD SPECIMENOrdering Facility: [facility] Address: [address] [place] [address] Performed By: #### 2 4323-8 ####[facility] LABCLIA [id number] [place] [address] Urea nitrogen [Mass/Vol] 16 mg/dL Normal 9-24 [facility] Comment on above: Order Comment: Speci men Type: BLOOD SPECIMENOrdering Facility: [facility] Address: [address] [place] [address] Performed By: #### 2 4323-8 ####[facility] LABCLIA [id number] [place] [address] Ambulatory Visit Summaryon 0 06-08-2024 Ambulatory Visit [...] for choosing us for your care. Normal [facility] 06-02-2024 [facility] Normal [facility] 05-17-2024 [facility] Normal [facility] C-REACTIVE PROTEINon 024 CRP [Mass/Vol] mg/dL [facility] - 0.9 mg/dL [facility] CBC W Auto Differential pane l (Bld)on 05-13-2024 Basophils (Bld) [#/Vol] [facility] Basophils/100 WBC (Bld) 1.3 % [facility] Differential cell count method Nom (Bld) Auto [facility] Eosinophils (Bld) [#/Vol] 0.05 10*3/uL [facility] Eosinophils/100 WBC (Bld) 3.3 % [facility] Erythrocyte distribution width (RBC) [Ratio] 19.9 % High 11.5 - 15.0 % [facility] Hematocrit (Bld) [Volume fraction] 36.9 % Low 39.0 - 51.0 % [facility] Hemoglobin (Bld) [Mass/Vol] 12.9 g/dL Low 13.0 - 17.0 g/dL [facility] Immature granulocytes (Bld) [#/Vol] [facility] Immature granulocytes/100 WBC (Bld) 1.3 % [facility] Interpretation and review of laboratory results Abnormal [facility] Lymphocytes (Bld) [#/Vol] 0.21 10*3/uL Low [facility] Lymphocytes/100 WBC (Bld) 13.8 % [facility] MCH (RBC) [Entitic mass] 33.2 pg 26.0 - 34.0 pg [facility] MCHC (RBC) [Mass/Vol] 35.0 g/dL 30.5 - 36.0 g/dL [facility] MCV (RBC) [Entitic vol] 95.1 fL 80.0 - 100.0 fL [facility] Monocytes (Bld) [#/Vol] 0.31 10*3/uL [facility] Monocytes/100 WBC (Bld) 20.4 % [facility] Neutrophils (Bld) [#/Vol] 0.91 10*3/uL Low [facility] Neutrophils/100 WBC (Bld) 59.9 % [facility] Nucleated RBC (Bld) [#/Vol] [facility] Nucleated RBC/100 WBC (Bld) [Ratio] 0.0 % /100 WBC [facility] Platelet mean volume (Bld) [Entitic vol] 9.7 fL 9.0 - 12.7 fL [facility] Platelets (Bld) [#/Vol] 107 10*3/uL Low [facility] RBC (Bld) [#/Vol] 3.88 10*6/uL Low 4.20 - 6.00 m/uL [facility] WBC (Bld) [#/Vol] 1.52 10*3/uL Low [facility] Comment on above: No clot detected. [facility] Basophils (Bld) [#/Vol] 10*3/uL Normal <0.11 [facility] Comment on above: Order Comment: Speci men Type: BLOOD SPECIMENOrdering Facility: [facility] Address: [address] [place] [address] Performed By: #### 5 7021-8 ####[facility] [id number] [place] [address] [place] Basophils/100 WBC (Bld) 1.3 % Normal [facility] Comment on above: Order Comment: Speci men Type: BLOOD SPECIMENOrdering Facility: [facility] Address: [address] [place] [address] Performed By: #### 5 7021-8 ####[facility] [id number] [place] [address] [place] Differential cell count method Nom (Bld) Auto Normal [facility] Comment on above: Order Comment: Speci men Type: BLOOD SPECIMENOrdering Facility: [facility] Address: [address] [place] [address] Performed By: #### 5 7021-8 ####[facility] [id number] [place] [address] [place] Eosinophils (Bld) [#/Vol] 0.05 10*3/uL Normal <0.46 [facility] Comment on above: Order Comment: Speci men Type: BLOOD SPECIMENOrdering Facility: [facility] Address: [address] [place] [address] Performed By: #### 5 7021-8 ####[facility] [id number] [place] [address] [place] Eosinophils/100 WBC (Bld) 3.3 % Normal [facility] Comment on above: Order Comment: Speci men Type: BLOOD SPECIMENOrdering Facility: [facility] Address: [address] [place] [address] Performed By: #### 5 7021-8 ####[facility] [id number] [place] [address] [place] Erythrocyte distribution width (RBC) [Ratio] 19.9 % High 11.5-15.0 [facility] Comment on above: Order Comment: Speci men Type: BLOOD SPECIMENOrdering Facility: [facility] Address: [address] [place] [address] Performed By: #### 5 7021-8 ####[facility] [id number] [place] [address] [place] Hematocrit (Bld) [Volume fraction] 36.9 % Low 39.0-51.0 [facility] Comment on above: Order Comment: Speci men Type: BLOOD SPECIMENOrdering Facility: [facility] Address: [address] [place] [address] Performed By: #### 5 7021-8 ####[facility] [id number] [place] [address] [place] Hemoglobin (Bld) [Mass/Vol] 12.9 g/dL Low 13.0-17.0 [facility] Comment on above: Order Comment: Speci men Type: BLOOD SPECIMENOrdering Facility: [facility] Address: [address] [place] [address] Performed By: #### 5 7021-8 ####[facility] [id number] [place] [address] [place] Immature granulocytes (Bld) [#/Vol] 10*3/uL Normal <0.10 [facility] Comment on above: Order Comment: Speci men Type: BLOOD SPECIMENOrdering Facility: [facility] Address: [address] [place] [address] Performed By: #### 5 7021-8 ####[facility] [id number] [place] [address] [place] Immature granulocytes/100 WBC (Bld) 1.3 % Normal [facility] Comment on above: Order Comment: Speci men Type: BLOOD SPECIMENOrdering Facility: [facility] Address: [address] [place] [address] Performed By: #### 5 7021-8 ####[facility] [id number] [place] [address] [place] Lymphocytes (Bld) [#/Vol] 0.21 10*3/uL Low 1.00-4.00 [facility] Comment on above: Order Comment: Speci men Type: BLOOD SPECIMENOrdering Facility: [facility] Address: [address] [place] [address] Performed By: #### 5 7021-8 ####[facility] [id number] [place] [address] [place] Lymphocytes/100 WBC (Bld) 13.8 % Normal [facility] Comment on above: Order Comment: Speci men Type: BLOOD SPECIMENOrdering Facility: [facility] Address: [address] [place] [address] Performed By: #### 5 7021-8 ####[facility] [id number] [place] [address] [place] MCH (RBC) [Entitic mass] 33.2 pg Normal 26.0-34.0 [facility] Comment on above: Order Comment: Speci men Type: BLOOD SPECIMENOrdering Facility: [facility] Address: [address] [place] [address] Performed By: #### 5 7021-8 ####[facility] [id number] [place] [address] [place] MCHC (RBC) [Mass/Vol] 35.0 g/dL Normal 30.5-36.0 [facility] Comment on above: Order Comment: Speci men Type: BLOOD SPECIMENOrdering Facility: [facility] Address: [address] [place] [address] Performed By: #### 5 7021-8 ####[facility] [id number] [place] [address] [place] MCV (RBC) [Entitic vol] 95.1 fL Normal 80.0-100.0 [facility] Comment on above: Order Comment: Speci men Type: BLOOD SPECIMENOrdering Facility: [facility] Address: [address] [place] [address] Performed By: #### 5 7021-8 ####[facility] [id number] [place] [address] [place] Monocytes (Bld) [#/Vol] 0.31 10*3/uL Normal <0.87 [facility] Comment on above: Order Comment: Speci men Type: BLOOD SPECIMENOrdering Facility: [facility] Address: [address] [place], [place] [address] Performed By: #### 5 7021-8 ####[facility] [id number] [place] [address] [place] Monocytes/100 WBC (Bld) 20.4 % Normal [facility] Comment on above: Order Comment: Speci men Type: BLOOD SPECIMENOrdering Facility: [facility] Address: [address] [place] [address] Performed By: #### 5 7021-8 ####[facility] [id number] [place] [address] [place] Neutrophils (Bld) [#/Vol] 0.91 10*3/uL Low 1.45-7.50 [facility] Comment on above: Order Comment: Speci men Type: BLOOD SPECIMENOrdering Facility: [facility] Address: [address] [place] [address] Performed By: #### 5 7021-8 ####[facility] [id number] [place] [address] [place] Neutrophils/100 WBC (Bld) 59.9 % Normal [facility] Comment on above: Order Comment: Speci men Type: BLOOD SPECIMENOrdering Facility: [facility] Address: [address] [place] [address] Performed By: #### 5 7021-8 ####[facility] [id number] [place] [address] [place] Nucleated RBC (Bld) [#/Vol] 10*3/uL Normal <0.01 [facility] Comment on above: Order Comment: Speci men Type: BLOOD SPECIMENOrdering Facility: [facility] Address: [address] [place] [address] Performed By: #### 5 7021-8 ####[facility] [id number] [place] [address] [place] Nucleated RBC/100 WBC (Bld) [Ratio] 0.0 /100 WBC Normal [facility] Comment on above: Order Comment: Speci men Type: BLOOD SPECIMENOrdering Facility: [facility] Address: [address] [place] [address] Performed By: #### 5 7021-8 ####[facility] [id number] [place] [address] [place] Platelet mean volume (Bld) [Entitic vol] 9.7 fL Normal 9.0-12.7 [facility] Comment on above: Order Comment: Speci men Type: BLOOD SPECIMENOrdering Facility: [facility] Address: [address] [place] [address] Performed By: #### 5 7021-8 ####[facility] [id number] [place] [address] [place] Platelets (Bld) [#/Vol] 107 10*3/uL Low 150-400 [facility] Comment on above: Order Comment: Speci men Type: BLOOD SPECIMENOrdering Facility: [facility] Address: [address] [place] [address] Performed By: #### 5 7021-8 ####[facility] [id number] [place] [address] [place] RBC (Bld) [#/Vol] 3.88 10*6/uL Low 4.20-6.00 [facility] Comment on above: Order Comment: Speci men Type: BLOOD SPECIMENOrdering Facility: [facility] Address: [address] [place] [address] Performed By: #### 5 7021-8 ####[facility] [id number] [place] [address] [place] WBC (Bld) [#/Vol] 1.52 10*3/uL Low 3.70-11.00 [facility] Comment on above: Order Comment: Speci men Type: BLOOD SPECIMENOrdering Facility: [facility] Address: [address] [place] [address] Result Comment: No c lot detected. Performed By: #### 5 7021-8 ####[facility] [id number] [place] [address] [place] CNOVon 05-13-2024 CNOV Normal [facility] CNOVSPon 05-13-2024 CNOVSP Normal [facility] CRP SerPl-mCncon 05-13-2024 CRP [Mass/Vol] mg/L Normal <0.9 [facility] Comment on above: Order Comment: Speci men Type: BLOOD SPECIMENOrdering Facility: [facility] Address: [address] [place] [address] Performed By: #### 1 988-5, 2276-4 ####[facility] [id number] [place] [address] [place] CRP [Mass/Vol]on 05-13-2024 Interpretation and review of laboratory results Normal [facility] CYTOMEGALOVIRUS (CMV) DNA, Q UANTITATIVE PCR, PLASMAon 05-13-2024 CMV DNA HARVEY+probe Qn (P) Not detected Normal Not Detected [facility] Comment on above: Order Comment: Speci men Type: BLOOD SPECIMENOrdering Facility: [facility] Address: [address] [place] [address] Performed By: #### C MVQNT ####[facility] [id number] [place] [address] [place] Comprehensive metabolic 2000 panelon 05-13-2024 Albumin [Mass/Vol] 4.6 g/dL 3.9 - 4.9 g/dL [facility] ALP [Catalytic activity/Vol] 118 U/L High 38 - 113 U/L [facility] ALT [Catalytic activity/Vol] 40 U/L 10 - 54 U/L [facility] Anion gap [Moles/Vol] 11 mmol/L 8 - 15 mmol/L [facility] AST [Catalytic activity/Vol] 27 U/L 14 - 40 U/L [facility] Bilirubin [Mass/Vol] 0.5 mg/dL 0.2 - 1 .3 mg/dL [facility] Calcium [Mass/Vol] 9.6 mg/dL 8.5 - 10. 2 mg/dL [facility] Chloride [Moles/Vol] 106 mmol/L 98 - 10 7 mmol/L [facility] CO2 [Moles/Vol] 24 mmol/L 22 - 30 mmol/L [facility] Creatinine [Mass/Vol] 1.01 mg/dL 0.73 - 1.22 mg/dL [facility] GFR/1.73 sq M.predicted among non-blacks MDRD (S/P/Bld) [Vol rate/Area] 82 mL/min/{1.73_m2} - PINF [facility] Comment on above: Estimated Glomerular Filtration [...] [Mass/Vol] 99 mg/dL 74 - 99 mg/dL [facility] Comment on above: The [place] Diabete [employer] Association (ADA) provides guidance for [...] Standards of Medical Care in Diabetes 2016, [place] [employer]. Diabetes Care. 2016.39(Suppl 1). Interpretation and review of laboratory results Abnormal [facility] Potassium [Moles/Vol] 4.6 mmol/L 3.7 - 5.1 mmol/L [facility] Protein [Mass/Vol] 6.8 g/dL 6.3 - 8.0 g/dL [facility] Sodium [Moles/Vol] 141 mmol/L 136 - 144 mmol/L [facility] Urea nitrogen [Mass/Vol] 16 mg/dL 9 - 24 mg/dL [facility] Albumin [Mass/Vol] 4.6 g/dL Normal 3.9-4.9 [facility] Comment on above: Order Comment: Speci men Type: BLOOD SPECIMENOrdering Facility: [facility] Address: [address] [place] [address] Performed By: #### 2 4323-8, 66282-9, 2776- ####[facility] [id number] [place] [address] [place] ALP [Catalytic activity/Vol] 118 U/L High 38-113 [facility] Comment on above: Order Comment: Speci men Type: BLOOD SPECIMENOrdering Facility: [facility] Address: [address] [place] [address] Performed By: #### 2 4323-8, 33611-3, 2776-11 ####[facility] [id number] [place] [address] [place] ALT [Catalytic activity/Vol] 40 U/L Normal 10-54 [facility] Comment on above: Order Comment: Speci men Type: BLOOD SPECIMENOrdering Facility: [facility] Address: [address] [place] [address] Performed By: #### 2 4323-8, , 2776-11 ####[facility] [id number] [place] [address] [place] Anion gap [Moles/Vol] 11 mmol/L Normal 8-15 [facility] Comment on above: Order Comment: Speci men Type: BLOOD SPECIMENOrdering Facility: [facility] Address: [address] [place] [address] Performed By: #### 2 4323-8, 66754-1, 277-1 ####[facility] [id number] [place] [id number] [place] AST [Catalytic activity/Vol] 27 U/L Normal 14-40 [facility] Comment on above: Order Comment: Speci men Type: BLOOD SPECIMENOrdering Facility: [facility] Address: [address] [place] [address] Performed By: #### 2 4323-8, 03009-3, 2776-11 ####[facility] [id number] [place] [address] [place] Bilirubin [Mass/Vol] 0.5 mg/dL Normal 0.2-1.3 [facility] Comment on above: Order Comment: Speci men Type: BLOOD SPECIMENOrdering Facility: [facility] Address: [address] [place] [address] Performed By: #### 2 4323-8, , 2776-11 ####[facility] [id number] [place] [address] [place] Calcium [Mass/Vol] 9.6 mg/dL Normal 8.5-10.2 [facility] Comment on above: Order Comment: Speci men Type: BLOOD SPECIMENOrdering Facility: [facility] Address: [address] [place] [address] Performed By: #### 2 4323-8, , 2776-11 ####[facility] [id number] [place] [address] [place] Chloride [Moles/Vol] 106 mmol/L Normal 98-107 [facility] Comment on above: Order Comment: Speci men Type: BLOOD SPECIMENOrdering Facility: [facility] Address: [address] [place] [address] Performed By: #### 2 4323-8, 39590-9, 2776-11 ####[facility] [id number] [place] [address] [place] CO2 [Moles/Vol] 24 mmol/L Normal 22-30 [facility] Comment on above: Order Comment: Speci men Type: BLOOD SPECIMENOrdering Facility: [facility] Address: [address] [place] [address] Performed By: #### 2 4323-8, , 2776-11 ####[facility] [id number] [place] [address] [place] Creatinine [Mass/Vol] 1.01 mg/dL Normal 0.73-1.22 [facility] Comment on above: Order Comment: Speci men Type: BLOOD SPECIMENOrdering Facility: [facility] Address: [address] [place] [address] Performed By: #### 2 4323-8, , 2776-11 ####[facility] [id number] [place] [address] [place] Creatinine and Glomerular filtration rate.predicted panel (S/P/Bld) 82 mL/min/1.73m??? Normal >=60 [facility] Comment on above: Order Comment: Speci men Type: BLOOD SPECIMENOrdering Facility: [facility] Address: [address] [place] [address] Result Comment: Carol mated Glomerular Filtration Rate [...] ####[facility] [id number] [place] [address] [place] Glucose [Mass/Vol] 99 mg/dL Normal 74-99 [facility] Comment on above: Order Comment: Speci men Type: BLOOD SPECIMENOrdering Facility: [facility] Address: [address] [place] [address] Result Comment: The [place] Diabetes Association (ADA) provides guidance for cutoff [...] Standards of Medical Care in Diabetes 2016, [place] [employer]. Diabetes Care. 2016.39(Suppl 1). Performed By: #### 2 4323-8, , 2776-11 ####[facility] [id number] [place] [address] [place] Potassium [Moles/Vol] 4.6 mmol/L Normal 3.7-5.1 [facility] Comment on above: Order Comment: Speci men Type: BLOOD SPECIMENOrdering Facility: [facility] Address: [address] [place] [address] Performed By: #### 2 4323-8, , 2776-11 ####[facility] [id number] [place] [address] [place] Protein [Mass/Vol] 6.8 g/dL Normal 6.3-8.0 [facility] Comment on above: Order Comment: Speci men Type: BLOOD SPECIMENOrdering Facility: [facility] Address: [address] [place], [place] [address] Performed By: #### 2 4323-8, , 2776-11 ####[facility] [id number] [place] [address] [place] Sodium [Moles/Vol] 141 mmol/L Normal 136-144 [facility] Comment on above: Order Comment: Speci men Type: BLOOD SPECIMENOrdering Facility: [facility] Address: [address] [place] [address] Performed By: #### 2 4323-8, 43460-9, 2777-1 ####[facility] [id number] [place] [address] [place] Urea nitrogen [Mass/Vol] 16 mg/dL Normal 9-24 [facility] Comment on above: Order Comment: Speci men Type: BLOOD SPECIMENOrdering Facility: [facility] Address: [address] [place] [address] Performed By: #### 2 4323-8, 67149-1, 27705-03 ####[facility] [id number] [place] [address] [place] FERRITINon 05-13-2024 Ferritin [Mass/Vol] 584.0 ng/mL High 30.3 - 565.7 ng/mL [facility] Ferritin SerPl-mCncon 2023 Ferritin [Mass/Vol] 584.0 ng/mL High 30.3-565.[address] [facility] Comment on above: Order Comment: Speci men Type: BLOOD SPECIMENOrdering Facility: [facility] Address: [address] [place] [address] Performed By: #### 1 988-5, 2276-4 ####[facility] [id number] [place] [address] [place] Ferritin [Mass/Vol]on 2023 Interpretation and review of laboratory results Abnormal [facility] IMMUNOGLOBULINS,IGG,IGA,IGMo n 05-13-2024 IgA [Mass/Vol] 27 mg/dL Low 70-400 [facility] Comment on above: Order Comment: Speci men Type: BLOOD SPECIMENOrdering Facility: [facility] Address: [address] [place] [address] Performed By: #### S ERIMM ####[facility] LABCL[facility] [id number] [place] [address] [place] IgG [Mass/Vol] 821 mg/dL Normal 700-1600 [facility] Comment on above: Order Comment: Speci men Type: BLOOD SPECIMENOrdering Facility: [facility] Address: [address] [place] [address] Performed By: #### S ERIMM ####[facility] [id number] [place] [address] [place] IgM [Mass/Vol] 9 mg/dL Low 40-230 [facility] Comment on above: Order Comment: Speci men Type: BLOOD SPECIMENOrdering Facility: [facility] Address: [address] [place] [address] Performed By: #### S ERIMM ####[facility] [id number] [place] [address] [place] Immunodeficiency panel FC (B ld)on 05-13-2024 CD3 cells (Bld) [#/Vol] 134 cells/uL Low 958-9238 [facility] Comment on above: Order Comment: Speci men Type: BLOOD SPECIMENOrdering Facility: [facility] Address: [address] [place] [address] Performed By: #### 4 5268-0 ####[facility] LABIA [id number] [place] [address] [place] CD3 cells/100 cells (Bld) 49 % Low 60-89 [facility] Comment on above: Order Comment: Speci men Type: BLOOD SPECIMENOrdering Facility: [facility] Address: [address] [place] [address] Performed By: #### 4 5268-0 ####[facility]CL[facility] [id number] [place] [address] [place] CD3+CD4+ (T4 helper) cells (Bld) [#/Vol] 35 cells/uL Low 533-7764 [facility] Comment on above: Order Comment: Speci men Type: BLOOD SPECIMENOrdering Facility: [facility] Address: [address] [place] [address] Performed By: #### 4 5268-0 ####[facility] LABCL[facility] [id number] [place] [address] [place] CD3+CD4+ (T4 helper) cells/100 cells (Bld) 13 % Low 34-61 [facility] Comment on above: Order Comment: Speci men Type: BLOOD SPECIMENOrdering Facility: [facility] Address: [address] [place] [address] Performed By: #### 4 5268-0 ####[facility] LABCL[facility] [id number] [place] [address] [place] CD3+CD4+ (T4 helper) cells/CD3+CD8+ (T8 suppressor cells) cells (Bld) [# ratio] 0.35 % Low 1.10-3.25 [facility] Comment on above: Order Comment: Speci men Type: BLOOD SPECIMENOrdering Facility: [facility] Address: [address] [place] [address] Performed By: #### 4 5268-0 ####[facility] LABCLIA [id number] [place] [address] [place] CD3+CD8+ (T8 suppressor cells) cells (Bld) [#/Vol] 100 cells/uL Low 175-958 [facility] Comment on above: Order Comment: Speci men Type: BLOOD SPECIMENOrdering Facility: [facility] Address: [address] [place] [address] Performed By: #### 4 5268-0 ####[facility] LABCLIA [id number] [place] [address] [place] CD3+CD8+ (T8 suppressor cells) cells/100 cells (Bld) 37 % Normal 10-41 [facility] Comment on above: Order Comment: Speci men Type: BLOOD SPECIMENOrdering Facility: [facility] Address: [address] [place] [address] Performed By: #### 4 5268-0 ####[facility] LABCLIA [id number] [place] [address] [place] CD3-CD16+CD56+ (Natural killer) cells (Bld) [#/Vol] 127 cells/uL Normal 102-565 [facility] Comment on above: Order Comment: Speci men Type: BLOOD SPECIMENOrdering Facility: [facility] Address: [address] [place] [address] Performed By: #### 4 5268-0 ####[facility] LABCLIA [id number] [place] [address] [place] CD3-CD16+CD56+ (Natural killer) cells/100 cells (Bld) 47 % High 5-25 [facility] Comment on above: Order Comment: Speci men Type: BLOOD SPECIMENOrdering Facility: [facility] Address: [address] [place] [address] Performed By: #### 4 5268-0 ####[facility] LABCLIA [id number] [place] [address] [place] CD3-CD19+ cells (Bld) [#/Vol] 2 cells/uL Low 75-660 [facility] Comment on above: Order Comment: Speci men Type: BLOOD SPECIMENOrdering Facility: [facility] Address: [address] [place] [address] Performed By: #### 4 5268-0 ####[facility] LABCLIA [id number] [place] [address] [place] CD3-CD19+ cells/100 cells (Bld) 1 % Low 5-22 [facility] Comment on above: Order Comment: Speci men Type: BLOOD SPECIMENOrdering Facility: [facility] Address: [address] [place] [address] Performed By: #### 4 5268-0 ####[facility] LABCLIA [id number] [place] [address] [place] LACTATE DEHYDROGENASEon 05-03 LDH [Catalytic activity/Vol] 289 U/L High 135 - 225 U/L [facility] Comment on above: Hemolysis present. T [...] LDH [Catalytic activity/Vol] 289 U/L High 135-225 [facility] Comment on above: Order Comment: Sara randle Type: BLOOD SPECIMENOrdering Facility: [facility] Address: [address] [place] [address] Result Comment: Hemo lysis present. The origin [...] ####[facility] [id number] [address] [place] LDH [Catalytic activity/Vol] on 05-13-2024 Interpretation and review of laboratory results Abnormal [facility] MAGNESIUMon 05-13-2024 Magnesium [Mass/Vol] 2.1 mg/dL 1.7 - 2 .3 mg/dL [facility] Magnesium SerPl-mCncon 05-13 Magnesium [Mass/Vol] 2.1 mg/dL Normal 1.7-2.3 [facility] Comment on above: Order Comment: Sara randle Type: BLOOD SPECIMENOrdering Facility: [facility] Address: [address] [place] [address] Performed By: #### 2 4323-8, 29892-0, 2777-1 ####[facility] [id number] [place] [id number] [place] No Panel Informationon 05-13 Interpretation and review of laboratory results Normal [facility] PHOSPHORUS INORGANICon 05-13 Phosphate [Mass/Vol] 4.1 mg/dL 2.7 - 4 .8 mg/dL [facility] Phosphate SerPl-mCncon 05-13 Phosphate [Mass/Vol] 4.1 mg/dL Normal 2.7-4.[address] [facility] Comment on above: Order Comment: Speci men Type: BLOOD SPECIMENOrdering Facility: [facility] Address: [address] [place] [address] Performed By: #### 2 4323-8, 84757-1, 2777-1 ####[facility] [id number] [place] [address] [place] PET+CT Guidance for localiza tion of tumor of Skull base to mid-thigh-- W 18F-FDG Bella 05-11-2024 IMPRESSION: HEAD/NECK: * No FDG avid neoplastic [...] 2X (hypermetabolic focus in the sigmoid region). Transcribe Date/Time: May 11 2024 9:37P Dictated by: URBANO LAURA MD This examination was interpreted and the report reviewed and electronically signed by: URBANO LAURA MD on May 11 2024 10:03PM EST Thank you for allowing us to participate in the care of your patient. Should there be any questions regarding this interpretation, please call [phone]. If you are unable to reach us at the number above, please feel free to contact [facility] eRadiology at [phone]. DIVISION OF RADIOLOGY * * *Final Report* * * DATE OF EXAM: May 07 2024 1:19PM NRN [id number] - NM PET/CT SKULL-THIGH SUBQ / PROCEDURE REASON: multiple diagnoses * * * * Physician Interpretation * * * * RESULT: EXAMINATION: BODY FDG PET-CT CLINICAL HISTORY: 68 years old Male with Diffuse large B-cell lymphoma, unspecified body region (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 . INDICATION: Subsequent treatment strategy. TECHNIQUE: Radiopharmaceutical was administered IV followed about 60 minutes later by PET imaging from skull base to proximal thigh. Free breathing, low dose CT of the same body region was acquired without IV contrast for attenuation correction and anatomic localization. * CT Dose-Length Product (DLP): 215 mGy*cm * CT Dose Reduction Employed: Yes * Blood glucose (mg/dL): 95 * Radiopharmaceutical Activity: 10.1 mCi * Radiopharmaceutical: C12-Ghgjewikbjvwntfanx (FDG) * All reported standardized uptake values represent maximum SUV (SUVmax) per body weight, unless otherwise specified. COMPARISON: PET/CT 03/25/2024 RESULT: REFERENCES: SUV reference values: * Blood pool (descending aorta) activity: SUVmax 2.7 * Background liver activity: SUVmax 3.7 Manager Of Purchasing (topogram) images: No additional findings. Notes and limitations: * Standardized uptake values indicate the highest activity concentration (SUVmax) at a given location but can be variable and are not absolute. * Physiologic/non-neoplastic uptake is common in the brain, extraocular muscles, oral cavity, tonsils, salivary glands, vocal cords, myocardium, liver, GI tract, urinary tract, and bone marrow among others. Certain regions and organ systems can have more intense uptake, which could confound or obscure some pathology. * Unenhanced imaging is limited for the evaluation of some pathology and the acquired CT was not designed to produce or replace diagnostic CT scan quality. * PET-CT is often not sensitive for pulmonary nodules less than 8 mm. HEAD AND NECK: Imaged Head: No abnormal uptake. Neck & Lymph Nodes: No abnormal uptake. Activity in the anterior oral cavity/tongue region can be physiological or inflammatory. Thyroid: No abnormal uptake. CHEST: Lungs & Airways: No abnormal uptake. Previously present hypermetabolic medial left lung nodule has significantly decreased in size and activity residual small nodule measuring about 5 mm (max SUV 1.3 compared to previously densely hypermetabolic nodule with max SUV 15.7). Non-FDG avid atelectatic changes/scarring in the lower lungs. Emphysematous changes in the upper lobes. Pleura & Pericardium: No abnormal uptake. Cardiovascular: No abnormal uptake. Right-sided chest port. Mediastinum & Lymph Nodes: No abnormal uptake. Previously present hypermetabolic retrocrural lymph nodes have resolved ABDOMEN AND PELVIS: Hepatobiliary: No abnormal uptake. Spleen: No abnormal uptake. Pancreas: No abnormal uptake. Adrenals: No abnormal uptake. Urinary Tract: No abnormal uptake. GI Tract: Focal uptake in the sigmoid region (Max SUV 7.7 compared to previously max SUV 10.9). Peritoneum: No abnormal uptake. Vasculature: No abnormal uptake. Retroperitoneum & Lymph Nodes: Most of the previously present hypermetabolic abdominal and pelvic lymph nodes have significantly resolved/regressed. Few residual lymph nodes with low-level activity for example right inguinal lymph node 1.4 cm (max SUV 2.6), stranding in the right external iliac region with low-level mild activity (Max SUV 2.8). Few small subcentimeter retroperitoneal lymph nodes with low activity (Max SUV 2.7). Surgical changes in the right inguinal region. Pelvis: No abnormal uptake. MUSCULOSKELETAL: Osseous: No abnormal uptake. Soft Tissues: No abnormal uptake. DIVISION OF RADIOLOGY Provider, [facility] - 05/11/2024 * * *Final Report* * * DATE OF EXAM: May 07 2024 1:19PM NRN [id number] - NM PET/CT SKULL-THIGH SUBQ / PROCEDURE REASON: multiple diagnoses * * * * Physician Interpretation * * * * RESULT: EXAMINATION: BODY FDG PET-CT CLINICAL HISTORY: 68 years old Male with Diffuse large B-cell lymphoma, unspecified body region (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 . INDICATION: Subsequent treatment strategy. TECHNIQUE: Radiopharmaceutical was administered IV followed about 60 minutes later by PET imaging from skull base to proximal thigh. Free breathing, low dose CT of the same body region was acquired without IV contrast for attenuation correction and anatomic localization. * CT Dose-Length Product (DLP): 215 mGy*cm * CT Dose Reduction Employed: Yes * Blood glucose (mg/dL): 95 * Radiopharmaceutical Activity: 10.1 mCi * Radiopharmaceutical: O40-Djxsybhoonixxezrvr (FDG) * All reported standardized uptake values represent maximum SUV (SUVmax) per body weight, unless otherwise specified. COMPARISON: PET/CT 03/25/2024 RESULT: REFERENCES: SUV reference values: * Blood pool (descending aorta) activity: SUVmax 2.7 * Background liver activity: SUVmax 3.7 Manager Of Purchasing (topogram) images: No additional findings. Notes and limitations: * Standardized uptake values indicate the highest activity concentration (SUVmax) at a given location but can be variable and are not absolute. * Physiologic/non-neoplastic uptake is common in the brain, extraocular muscles, oral cavity, tonsils, salivary glands, vocal cords, myocardium, liver, GI tract, urinary tract, and bone marrow among others. Certain regions and organ systems can have more intense uptake, which could confound or obscure some pathology. * Unenhanced imaging is limited for the evaluation of some pathology and the acquired CT was not designed to produce or replace diagnostic CT scan quality. * PET-CT is often not sensitive for pulmonary nodules less than 8 mm. HEAD AND NECK: Imaged Head: No abnormal uptake. Neck & Lymph Nodes: No abnormal uptake. Activity in the anterior oral cavity/tongue region can be physiological or inflammatory. Thyroid: No abnormal uptake. CHEST: Lungs & Airways: No abnormal uptake. Previously present hypermetabolic medial left lung nodule has significantly decreased in size and activity residual small nodule measuring about 5 mm (max SUV 1.3 compared to previously densely hypermetabolic nodule with max SUV 15.7). Non-FDG avid atelectatic changes/scarring in the lower lungs. Emphysematous changes in the upper lobes. Pleura & Pericardium: No abnormal uptake. Cardiovascular: No abnormal uptake. Right-sided chest port. Mediastinum & Lymph Nodes: No abnormal uptake. Previously present hypermetabolic retrocrural lymph nodes have resolved ABDOMEN AND PELVIS: Hepatobiliary: No abnormal uptake. Spleen: No abnormal uptake. Pancreas: No abnormal uptake. Adrenals: No abnormal uptake. Urinary Tract: No abnormal uptake. GI Tract: Focal uptake in the sigmoid region (Max SUV 7.7 compared to previously max SUV 10.9). Peritoneum: No abnormal uptake. Vasculature: No abnormal uptake. Retroperitoneum & Lymph Nodes: Most of the previously present hypermetabolic abdominal and pelvic lymph nodes have significantly resolved/regressed. Few residual lymph nodes with low-level activity for example right inguinal lymph node 1.4 cm (max SUV 2.6), stranding in the right external iliac region with low-level mild activity (Max SUV 2.8). Few small subcentimeter retroperitoneal lymph nodes with low activity (Max SUV 2.7). Surgical changes in the right inguinal region. Pelvis: No abnormal uptake. MUSCULOSKELETAL: Osseous: No abnormal uptake. Soft Tissues: No abnormal uptake. IMPRESSION IMPRESSION: HEAD/NECK: * No FDG avid neoplastic [...] 2X (hypermetabolic focus in the sigmoid region). Transcribe Date/Time: May 11 2024 9:37P Dictated by: URBANO LAURA MD This examination was interpreted and the report reviewed and electronically signed by: URBANO LAURA MD on May 11 2024 10:03PM EST Thank you for allowing us to participate in the care of your patient. Should there be any questions regarding this interpretation, please call [phone]. If you are unable to reach us at the number abov (more content not included)... [facility] PET+CT Guidance for localiza tion of tumor of Skull base to mid-thigh-- W 18F-FDG IVOrdered By: Ccf Provider on 05-11-2024 [facility] GLUCOSE, BLOOD (POC)on 05-07 Glucose [Mass/Vol] 95 mg/dL 74 - 99 mg/dL [facility] Comment on above: Location:[facility], [address] [place] [address] , [place], [place], [address] The Accu-Chek Inform II glucose meter has not been approved for testing on patients receiving intensive medical intervention or therapy and results from this point of care glucose test should not be used for patient management decisions in these cases. Inaccurate results may also occur from other interfering factors, such as N-acetylcysteine (blood concentrations of greater than 5mg/dL), galactose, extremes of hematocrit (<10 or >65), or high doses of ascorbic acid (vitamin C) greater than 3mg/dL. Consider alternate testing mechanisms (e.g. core lab, blood gas instrument) in the above situations. [facility] NM PET/CT SKULL-THIGH SUBQon 05-07-2024 NM PET/CT SKULL-THIGH SUBQ Normal [facility] PET+CT Guidance for localiza tion of tumor of Skull base to mid-thigh-- W 18F-FDG Bella 05-07-2024 Radiology Study observation (narrative) [facility] CBC W Auto Differential pane l (Bld)on 05-03-2024 Anisocytosis Ql (Bld) Present Normal [facility] Comment on above: Order Comment: Speci men Type: BLOOD SPECIMENOrdering Facility: [facility] Address: [address] [place] [address] Performed By: #### 5 7021-8 ####[facility] LABCLIA [id number] [address] LABCLIA [id number] [place] [address] [place] Basophils (Bld) [#/Vol] 0.02 10*3/uL Normal <0.11 [facility] Comment on above: Order Comment: Speci men Type: BLOOD SPECIMENOrdering Facility: [facility] Address: [address] [place] [address] Performed By: #### 5 7021-8 ####[facility] LABCLIA [id number] [address] LABCLIA [id number] [place] [address] [place] Basophils/100 WBC (Bld) 1.3 % Normal [facility] Comment on above: Order Comment: Speci men Type: BLOOD SPECIMENOrdering Facility: [facility] Address: [address] [place] [address] Performed By: #### 5 7021-8 ####[facility] LABCLIA [id number] [place] [id number] LABCLIA [id number] [place] [address] [place] Differential cell count method Nom (Bld) Manual Normal [facility] Comment on above: Order Comment: Speci men Type: BLOOD SPECIMENOrdering Facility: [facility] Address: [address] [place] [address] Performed By: #### 5 7021-8 ####[facility] LABCLIA [id number] [address] LABCLIA [id number] [place] [address] [place] Eosinophils (Bld) [#/Vol] 0.03 10*3/uL Normal <0.46 [facility] Comment on above: Order Comment: Speci men Type: BLOOD SPECIMENOrdering Facility: [facility] Address: [address] [place] [address] Performed By: #### 5 7021-8 ####[facility] LABCLIA [id number] [address] LABCLIA [id number] [place] [address] [place] Eosinophils/100 WBC (Bld) 1.7 % Normal [facility] Comment on above: Order Comment: Speci men Type: BLOOD SPECIMENOrdering Facility: [facility] Address: [address] [place] [address] Performed By: #### 5 7021-8 ####[facility] LABCLIA [id number] [address] LABCLIA [id number] [place] [address] [place] Erythrocyte distribution width (RBC) [Ratio] 19.4 % High 11.5-15.0 [facility] Comment on above: Order Comment: Speci men Type: BLOOD SPECIMENOrdering Facility: [facility] Address: [address] [place] [address] Performed By: #### 5 7021-8 ####[facility] LABCLIA [id number] [address] LABCLIA [id number] [place] [address] [place] Hematocrit (Bld) [Volume fraction] 39.0 % Normal 39.0-51.0 [facility] Comment on above: Order Comment: Speci men Type: BLOOD SPECIMENOrdering Facility: [facility] Address: [address] [place] [address] Performed By: #### 5 7021-8 ####[facility] LABCLIA [id number] [address] LABCLIA [id number] [place] [address] [place] Hemoglobin (Bld) [Mass/Vol] 13.1 g/dL Normal 13.0-17.0 [facility] Comment on above: Order Comment: Speci men Type: BLOOD SPECIMENOrdering Facility: [facility] Address: [address] [place] [address] Performed By: #### 5 7021-8 ####[facility] LABCLIA [id number] [address] LABCLIA [id number] [place] [address] [place] Lymphocytes (Bld) [#/Vol] 0.33 10*3/uL Low 1.00-4.00 [facility] Comment on above: Order Comment: Speci men Type: BLOOD SPECIMENOrdering Facility: [facility] Address: [address] [place] [address] Performed By: #### 5 7021-8 ####[facility] LABCLIA [id number] [place] [id number] LABCLIA [id number] [place] [address] [place] Lymphocytes/100 WBC (Bld) 19.9 % Normal [facility] Comment on above: Order Comment: Speci men Type: BLOOD SPECIMENOrdering Facility: [facility] Address: [address] [place] [address] Performed By: #### 5 7021-8 ####[facility] LABCLIA [id number] [address] LABCLIA [id number] [place] [address] [place] MCH (RBC) [Entitic mass] 32.3 pg Normal 26.0-34.0 [facility] Comment on above: Order Comment: Speci men Type: BLOOD SPECIMENOrdering Facility: [facility] Address: [address] [place] [address] Performed By: #### 5 7021-8 ####[facility] LABCLIA [id number] [address] LABCLIA [id number] [place] [address] [place] MCHC (RBC) [Mass/Vol] 33.6 g/dL Normal 30.5-36.0 [facility] Comment on above: Order Comment: Speci men Type: BLOOD SPECIMENOrdering Facility: [facility] Address: [address] [place] [address] Performed By: #### 5 7021-8 ####[facility] LABCLIA [id number] [address] LABCLIA [id number] [place] [address] [place] MCV (RBC) [Entitic vol] 96.3 fL Normal 80.0-100.0 [facility] Comment on above: Order Comment: Speci men Type: BLOOD SPECIMENOrdering Facility: [facility] Address: [address] [place] [address] Performed By: #### 5 7021-8 ####[facility] LABCLIA [id number] [address] LABCLIA [id number] [place] [address] [place] Monocytes (Bld) [#/Vol] 0.28 10*3/uL Normal <0.87 [facility] Comment on above: Order Comment: Speci men Type: BLOOD SPECIMENOrdering Facility: [facility] Address: [address] [place] [address] Performed By: #### 5 7021-8 ####[facility] LABCLIA [id number] [address] LABCLIA [id number] [place] [address] [place] Monocytes/100 WBC (Bld) 16.9 % Normal [facility] Comment on above: Order Comment: Speci men Type: BLOOD SPECIMENOrdering Facility: [facility] Address: [address] [place] [address] Performed By: #### 5 7021-8 ####[facility] LABCLIA [id number] [address] LABCLIA [id number] [place] [address] [place] Neutrophils (Bld) [#/Vol] 0.99 10*3/uL Low 1.45-7.50 [facility] Comment on above: Order Comment: Speci men Type: BLOOD SPECIMENOrdering Facility: [facility] Address: [address] [place] [address] Performed By: #### 5 7021-8 ####[facility] LABCLIA [id number] [address] LABCLIA [id number] [place] [address] [place] Neutrophils/100 WBC (Bld) 60.2 % Normal [facility] Comment on above: Order Comment: Speci men Type: BLOOD SPECIMENOrdering Facility: [facility] Address: [address] [place] [address] Performed By: #### 5 7021-8 ####[facility] LABCLIA [id number] [address] LABCLIA [id number] [place] [address] [place] Nucleated RBC (Bld) [#/Vol] 10*3/uL Normal <0.01 [facility] Comment on above: Order Comment: Speci men Type: BLOOD SPECIMENOrdering Facility: [facility] Address: [address] [place] [address] Performed By: #### 5 7021-8 ####[facility] LABCLIA [id number] [address] LABCLIA [id number] [place] [address] [place] Nucleated RBC/100 WBC (Bld) [Ratio] 0.0 /100 WBC Normal [facility] Comment on above: Order Comment: Speci men Type: BLOOD SPECIMENOrdering Facility: [facility] Address: [address] [place] [address] Performed By: #### 5 7021-8 ####[facility] LABCLIA [id number] [address] LABCLIA [id number] [place] [address] [place] Ovalocytes LM Ql (Bld) Few Normal [facility] Comment on above: Order Comment: Speci men Type: BLOOD SPECIMENOrdering Facility: [facility] Address: [address] [place] [address] Performed By: #### 5 7021-8 ####[facility] LABCLIA [id number] [place] [id number] LABCLIA [id number] [place] [address] [place] Platelet mean volume (Bld) [Entitic vol] 9.8 fL Normal 9.0-12.7 [facility] Comment on above: Order Comment: Speci men Type: BLOOD SPECIMENOrdering Facility: [facility] Address: [address] [place] [address] Performed By: #### 5 7021-8 ####[facility] LABCLIA [id number] [address] LABCLIA [id number] [place] [address] [place] Platelets (Bld) [#/Vol] 82 10*3/uL Low 150-400 [facility] Comment on above: Order Comment: Speci men Type: BLOOD SPECIMENOrdering Facility: [facility] Address: [address] [place] [address] Result Comment: No c lot detected. Performed By: #### 5 7021-8 ####[facility] LABCLIA [id number] [place] [id number] LABCLIA [id number] [place] [address] [place] Platelets Estimate (Bld) [#/Vol] Decreased Normal [facility] Comment on above: Order Comment: Speci men Type: BLOOD SPECIMENOrdering Facility: [facility] Address: [facility] [place] [address] Performed By: #### 5 7021-8 ####[facility] LABCLIA [id number] [place] [id number] LABCLIA [id number] [place] [address] [place] Polychromasia LM Ql (Bld) Slight Normal [facility] Comment on above: Order Comment: Speci men Type: BLOOD SPECIMENOrdering Facility: [facility] Address: [address] [place] [address] Performed By: #### 5 7021-8 ####[facility] LABCLIA [id number] [address] LABCLIA [id number] [place] [address] [place] RBC (Bld) [#/Vol] 4.05 10*6/uL Low 4.20-6.00 [facility] Comment on above: Order Comment: Speci men Type: BLOOD SPECIMENOrdering Facility: [facility] Address: [address] [place] [address] Performed By: #### 5 7021-8 ####[facility] LABCLIA [id number] [address] LABCLIA [id number] [place] [address] [place] RED CELL MORPH Reviewed: see result s of individual morphologies Normal [facility] Comment on above: Order Comment: Speci men Type: BLOOD SPECIMENOrdering Facility: [facility] Address: [address] [place] [address] Performed By: #### 5 7021-8 ####[facility] LABCLIA [id number] [address] LABCLIA [id number] [place] [address] [place] WBC (Bld) [#/Vol] 1.64 10*3/uL Low 3.70-11.00 [facility] Comment on above: Order Comment: Speci men Type: BLOOD SPECIMENOrdering Facility: [facility] Address: [address] [place] [address] Result Comment: No c lot detected. Performed By: #### 5 7021-8 ####[facility] LABCLIA [id number] [place], [place] [address] LABCLIA [id number] [facility] [id number] [address] [place] CNPNon 05-03-2024 CNPN Normal [facility] Comprehensive metabolic 2000 panelon 05-03-2024 Albumin [Mass/Vol] 4.4 g/dL Normal 3.9-4.9 [facility] Comment on above: Order Comment: Speci men Type: BLOOD SPECIMENOrdering Facility: [facility] Address: [address] [place], [place] [address] Performed By: #### 1 9123-9, 65128-8 ####[facility] LABCLIA [id number] [place] [address] ALP [Catalytic activity/Vol] 146 U/L High 38-113 [facility] Comment on above: Order Comment: Speci men Type: BLOOD SPECIMENOrdering Facility: [facility] Address: [address] [place] [id number] Performed By: #### 1 9123-9, 98572-1 ####[facility] LABCLIA [id number] [place] [address] ALT [Catalytic activity/Vol] 37 U/L Normal 10-54 [facility] Comment on above: Order Comment: Speci men Type: BLOOD SPECIMENOrdering Facility: [facility] Address: [address] [place] [address] Performed By: #### 1 9123-9, 15972-0 ####[facility] LABCLIA [id number] [place] [address] Anion gap [Moles/Vol] 11 mmol/L Normal 8-15 [facility] Comment on above: Order Comment: Speci men Type: BLOOD SPECIMENOrdering Facility: [facility] Address: [address] [place] [address] Performed By: #### 1 9123-9, ####[facility] LABCLIA [id number] [place] [address] AST [Catalytic activity/Vol] 23 U/L Normal 14-40 [facility] Comment on above: Order Comment: Speci men Type: BLOOD SPECIMENOrdering Facility: [facility] Address: [address] [place] [address] Performed By: #### 1 9123-9, 32467-3 ####[facility] LABCLIA [id number] [place] [address] Bilirubin [Mass/Vol] 0.3 mg/dL Normal 0.2-1.3 [facility] Comment on above: Order Comment: Speci men Type: BLOOD SPECIMENOrdering Facility: [facility] Address: [address] [place] [address] Performed By: #### 1 9123-9, ####[facility] LABCLIA [id number] [place] [address] Calcium [Mass/Vol] 9.8 mg/dL Normal 8.5-10.2 [facility] Comment on above: Order Comment: Speci men Type: BLOOD SPECIMENOrdering Facility: [facility] Address: [address] [place] [address] Performed By: #### 1 9123-9, 48144-0 ####[facility] LABCLIA [id number] [place] [address] Chloride [Moles/Vol] 108 mmol/L High 98-107 [facility] Comment on above: Order Comment: Speci men Type: BLOOD SPECIMENOrdering Facility: [facility] Address: [address] [place] [address] Performed By: #### 1 9123-9, 89520-5 ####[facility] LABCLIA [id number] [place] [address] CO2 [Moles/Vol] 24 mmol/L Normal 22-30 [facility] Comment on above: Order Comment: Speci men Type: BLOOD SPECIMENOrdering Facility: [facility] Address: [address] [place], [place] [address] Performed By: #### 1 9123-9, ####[facility] LABCLIA [id number] [place] [address] Creatinine [Mass/Vol] 1.11 mg/dL Normal 0.73-1.22 [facility] Comment on above: Order Comment: Speci men Type: BLOOD SPECIMENOrdering Facility: [facility] Address: [address] [place] [address] Performed By: #### 1 9123-9, ####[facility] LABCLIA [id number] [place] [address] Creatinine and Glomerular filtration rate.predicted panel (S/P/Bld) 73 mL/min/1.73m??? Normal >=60 [facility] Comment on above: Order Comment: Speci men Type: BLOOD SPECIMENOrdering Facility: [facility] Address: [address] [place] [address] Result Comment: Carol mated Glomerular Filtration Rate [...] actual GFR. Performed By: #### 1 9123-9, ####[facility] LABCLIA [id number] [place] [address] Glucose [Mass/Vol] 114 mg/dL High 74-99 [facility] Comment on above: Order Comment: Speci men Type: BLOOD SPECIMENOrdering Facility: [facility] Address: [address] [place], [place] [address] Result Comment: The [place] [employer] (ADA) provides guidance for cutoff [...] Standards of Medical Care in Diabetes 2016, [place] [employer]. Diabetes Care. 2016.39(Suppl 1). Performed By: #### 1 9123-9, ####[facility] LABCLIA [id number] [place] [address] Potassium [Moles/Vol] 4.6 mmol/L Normal 3.7-5.1 [facility] Comment on above: Order Comment: Speci men Type: BLOOD SPECIMENOrdering Facility: [facility] Address: [address] [place] [address] Performed By: #### 1 239, ####[facility] LABCLIA [id number] [place] [address] Protein [Mass/Vol] 6.6 g/dL Normal 6.3-8.0 [facility] Comment on above: Order Comment: Speci men Type: BLOOD SPECIMENOrdering Facility: [facility] Address: [address] [place] [address] Performed By: #### 1 239, 01173-7 ####[facility] LABCLIA [id number] [place] [address] Sodium [Moles/Vol] 143 mmol/L Normal 136-144 [facility] Comment on above: Order Comment: Speci men Type: BLOOD SPECIMENOrdering Facility: [facility] Address: [address] [place] [address] Performed By: #### 1 239, 34737-5 ####[facility] LABCLIA [id number] [place] [address] Urea nitrogen [Mass/Vol] 16 mg/dL Normal 9- [facility] Comment on above: Order Comment: Speci men Type: BLOOD SPECIMENOrdering Facility: [facility] Address: [address] [place] [address] Performed By: #### 1 9123-9, 92065-8 ####[facility] LABIA [id number] [place] [address] Magnesium SerPl-mCncon 05-03 Magnesium [Mass/Vol] 2.2 mg/dL Normal 1.7-2.3 [facility] Comment on above: Order Comment: Speci men Type: BLOOD SPECIMENOrdering Facility: [facility] Address: [address] [place] [address] Performed By: #### 1 9123-9, 76145-2 ####[facility] LABIA [id number] [place] [address] CNPNon 04-30-2024 CNPN Normal [facility] C-REACTIVE PROTEINon 024 CRP [Mass/Vol] mg/dL NINF - 0.9 mg/dL [facility] CBC W Auto Differential pane l (Bld)on 04-23-2024 Anisocytosis Ql (Bld) Present Normal [facility] Comment on above: Order Comment: Speci men Type: BLOOD SPECIMENOrdering Facility: [facility] Address: [address] [place] [address] Performed By: #### 5 7021-8 ####[facility] [id number] [place] [address] [place] Basophils (Bld) [#/Vol] 0.02 10*3/uL Normal <0.11 [facility] Comment on above: Order Comment: Speci men Type: BLOOD SPECIMENOrdering Facility: [facility] Address: [address] [place] [address] Performed By: #### 5 7021-8 ####[facility] [id number] [place] [address] [place] Basophils/100 WBC (Bld) 1.0 % Normal [facility] Comment on above: Order Comment: Speci men Type: BLOOD SPECIMENOrdering Facility: [facility] Address: [address] [place] [address] Performed By: #### 5 7021-8 ####[facility] [id number] [place] [address] [place] Differential cell count method Nom (Bld) Manual Normal [facility] Comment on above: Order Comment: Speci men Type: BLOOD SPECIMENOrdering Facility: [facility] Address: [address] [place] [address] Performed By: #### 5 7021-8 ####[facility] [id number] [place] [address] [place] Eosinophils (Bld) [#/Vol] 0.02 10*3/uL Normal <0.46 [facility] Comment on above: Order Comment: Speci men Type: BLOOD SPECIMENOrdering Facility: [facility] Address: [address] [place] [address] Performed By: #### 5 7021-8 ####[facility] [place] [id number] [place] [address] [place] Eosinophils/100 WBC (Bld) 1.0 % Normal [facility] Comment on above: Order Comment: Speci men Type: BLOOD SPECIMENOrdering Facility: [facility] Address: [address] [place] [address] Performed By: #### 5 7021-8 ####[facility] [id number] [place] [address] [place] Erythrocyte distribution width (RBC) [Ratio] 17.1 % High 11.5-15.0 [facility] Comment on above: Order Comment: Speci men Type: BLOOD SPECIMENOrdering Facility: [facility] Address: [address] [place] [address] Performed By: #### 5 7021-8 ####[facility] [place] [id number] [place] [address] [place] Hematocrit (Bld) [Volume fraction] 33.5 % Low 39.0-51.0 [facility] Comment on above: Order Comment: Speci men Type: BLOOD SPECIMENOrdering Facility: [facility] Address: [address] [place] [address] Performed By: #### 5 7021-8 ####[facility] [id number] [place] [address] [place] Hemoglobin (Bld) [Mass/Vol] 11.7 g/dL Low 13.0-17.0 [facility] Comment on above: Order Comment: Speci men Type: BLOOD SPECIMENOrdering Facility: [facility] Address: [address] [place] [address] Performed By: #### 5 7021-8 ####[facility] [id number] [place] [address] [place] Lymphocytes (Bld) [#/Vol] 0.23 10*3/uL Low 1.00-4.00 [facility] Comment on above: Order Comment: Speci men Type: BLOOD SPECIMENOrdering Facility: [facility] Address: [address] [place] [address] Performed By: #### 5 7021-8 ####[facility] [place] [id number] [place] [address] [place] Lymphocytes/100 WBC (Bld) 12.0 % Normal [facility] Comment on above: Order Comment: Speci men Type: BLOOD SPECIMENOrdering Facility: [facility] Address: [address] [place] [address] Performed By: #### 5 7021-8 ####[facility] [id number] [place] [address] [place] MCH (RBC) [Entitic mass] 31.8 pg Normal 26.0-34.0 [facility] Comment on above: Order Comment: Speci men Type: BLOOD SPECIMENOrdering Facility: [facility] Address: [address] [place] [address] Performed By: #### 5 7021-8 ####[facility] [id number] [place] [address] [place] MCHC (RBC) [Mass/Vol] 34.9 g/dL Normal 30.5-36.0 [facility] Comment on above: Order Comment: Speci men Type: BLOOD SPECIMENOrdering Facility: [facility] Address: [address] [place] [address] Performed By: #### 5 7021-8 ####[facility] [place] [id number] [place] [address] [place] MCV (RBC) [Entitic vol] 91.0 fL Normal 80.0-100.0 [facility] Comment on above: Order Comment: Speci men Type: BLOOD SPECIMENOrdering Facility: [facility] Address: [address] [place] [address] Performed By: #### 5 7021-8 ####[facility] [id number] [place] [address] [place] Monocytes (Bld) [#/Vol] 0.33 10*3/uL Normal <0.87 [facility] Comment on above: Order Comment: Speci men Type: BLOOD SPECIMENOrdering Facility: [facility] Address: [address] [place] [address] Performed By: #### 5 7021-8 ####[facility] [id number] [place] [address] OF [facility] Monocytes/100 WBC (Bld) 17.0 % Normal [facility] Comment on above: Order Comment: Speci men Type: BLOOD SPECIMENOrdering Facility: [facility] Address: [address] [place] [address] Performed By: #### 5 7021-8 ####[facility] [id number] [place] [address] [place] Neutrophils (Bld) [#/Vol] 1.34 10*3/uL Low 1.45-7.50 [facility] Comment on above: Order Comment: Speci men Type: BLOOD SPECIMENOrdering Facility: [facility] Address: [address] [place] [address] Performed By: #### 5 7021-8 ####[facility] [place] [id number] [place] [address] [place] Neutrophils/100 WBC (Bld) 69.0 % Normal [facility] Comment on above: Order Comment: Speci men Type: BLOOD SPECIMENOrdering Facility: [facility] Address: [address] [place] [address] Performed By: #### 5 7021-8 ####[facility] [place] [id number] [place] [address] [place] Nucleated RBC (Bld) [#/Vol] 10*3/uL Normal <0.01 [facility] Comment on above: Order Comment: Speci men Type: BLOOD SPECIMENOrdering Facility: [facility] Address: [address] [place] [address] Performed By: #### 5 7021-8 ####[facility] [id number] [place] [address] [place] Nucleated RBC/100 WBC (Bld) [Ratio] 0.0 /100 WBC Normal [facility] Comment on above: Order Comment: Speci men Type: BLOOD SPECIMENOrdering Facility: [facility] Address: [address] [place] [address] Performed By: #### 5 7021-8 ####[facility] [id number] [place] [address] [place] Ovalocytes LM Ql (Bld) Few Normal [facility] Comment on above: Order Comment: Speci men Type: BLOOD SPECIMENOrdering Facility: [facility] Address: [address] [place] [address] Performed By: #### 5 7021-8 ####[facility] [id number] [place] [address] [place] Platelet mean volume (Bld) [Entitic vol] 10.6 fL Normal 9.0-12.7 [facility] Comment on above: Order Comment: Speci men Type: BLOOD SPECIMENOrdering Facility: [facility] Address: [address] [place] [address] Performed By: #### 5 7021-8 ####[facility] [place] [id number] [place] [address] [place] Platelets (Bld) [#/Vol] 77 10*3/uL Low 150-400 [facility] Comment on above: Order Comment: Speci men Type: BLOOD SPECIMENOrdering Facility: [facility] Address: [address] [place] [address] Performed By: #### 5 7021-8 ####[facility] [id number] [place] [address] [place] Platelets Estimate (Bld) [#/Vol] Decreased Normal [facility] Comment on above: Order Comment: Speci men Type: BLOOD SPECIMENOrdering Facility: [facility] Address: [address] [place] [address] Performed By: #### 5 7021-8 ####[facility] [id number] [place] [address] [place] Polychromasia LM Ql (Bld) Slight Normal [facility] Comment on above: Order Comment: Speci men Type: BLOOD SPECIMENOrdering Facility: [facility] Address: [address] [place] [address] Performed By: #### 5 7021-8 ####[facility] [id number] [place] [address] [place] RBC (Bld) [#/Vol] 3.68 10*6/uL Low 4.20-6.00 [facility] Comment on above: Order Comment: Speci men Type: BLOOD SPECIMENOrdering Facility: [facility] Address: [address] [place] [address] Performed By: #### 5 7021-8 ####[facility] [id number] [place] [address] [place] RED CELL MORPH Reviewed: see result s of individual morphologies Normal [facility] Comment on above: Order Comment: Speci men Type: BLOOD SPECIMENOrdering Facility: [facility] Address: [address] [place] [address] Performed By: #### 5 7021-8 ####[facility] [id number] [place] [address] [place] WBC (Bld) [#/Vol] 1.94 10*3/uL Low 3.70-11.00 [facility] Comment on above: Order Comment: Speci men Type: BLOOD SPECIMENOrdering Facility: [facility] Address: [address] [place] [address] Result Comment: No c lot detected. Performed By: #### 5 7021-8 ####[facility] [id number] [place] [address] [place] CNOVSPon 04-23-2024 CNOVSP Normal [facility] CRP SerPl-mCncon 04-23-2024 CRP [Mass/Vol] mg/L Normal <0.9 [facility] Comment on above: Order Comment: Speci men Type: BLOOD SPECIMENOrdering Facility: [facility] Address: [address] [place] [address] Performed By: #### 1 988-5, 2276-4 ####[facility] LABCLIA [id number] [facility] [place] [address] [place] CRP [Mass/Vol]on 04-23-2024 Interpretation and review of laboratory results Normal [facility] Comprehensive metabolic 2000 panelon 04-23-2024 Albumin [Mass/Vol] 4.1 g/dL 3.9 - 4.9 g/dL [facility] ALP [Catalytic activity/Vol] 137 U/L High 38 - 113 U/L [facility] ALT [Catalytic activity/Vol] 35 U/L 10 - 54 U/L [facility] Anion gap [Moles/Vol] 11 mmol/L 8 - 15 mmol/L [facility] AST [Catalytic activity/Vol] 16 U/L 14 - 40 U/L [facility] Bilirubin [Mass/Vol] 0.4 mg/dL 0.2 - 1 .3 mg/dL [facility] Calcium [Mass/Vol] 9.1 mg/dL 8.5 - 10. 2 mg/dL [facility] Chloride [Moles/Vol] 105 mmol/L 98 - 10 7 mmol/L [facility] CO2 [Moles/Vol] 25 mmol/L 22 - 30 mmol/L [facility] Creatinine [Mass/Vol] 0.89 mg/dL 0.73 - 1.22 mg/dL [facility] GFR/1.73 sq M.predicted among non-blacks MDRD (S/P/Bld) [Vol rate/Area] 94 mL/min/{1.73_m2} - PINF [facility] Comment on above: Estimated Glomerular Filtration [...] 100 mg/dL High 74 - 99 mg/dL [facility] Comment on above: The [place] Diab[employer] Association (ADA) provides guidance for [...] Standards of Medical Care in Diabetes 2016, [place] [employer]. Diabetes Care. 2016.39(Suppl 1). Interpretation and review of laboratory results Abnormal [facility] Potassium [Moles/Vol] 4.3 mmol/L 3.7 - 5.1 mmol/L [facility] Protein [Mass/Vol] 6.5 g/dL 6.3 - 8.0 g/dL [facility] Sodium [Moles/Vol] 141 mmol/L 136 - 144 mmol/L [facility] Urea nitrogen [Mass/Vol] 22 mg/dL 9 - 24 mg/dL [facility] Albumin [Mass/Vol] 4.1 g/dL Normal 3.9-4.9 [facility] Comment on above: Order Comment: Speci men Type: BLOOD SPECIMENOrdering Facility: [facility] Address: [address] [place] [address] Performed By: #### 2 4328, ####[facility] [id number] [place] [address] [place] ALP [Catalytic activity/Vol] 137 U/L High 38-113 [facility] Comment on above: Order Comment: Speci men Type: BLOOD SPECIMENOrdering Facility: [facility] Address: [address] [place] [address] Performed By: #### 2 4323-06, ####[facility] [id number] [place] [address] [place] ALT [Catalytic activity/Vol] 35 U/L Normal 10-54 [facility] Comment on above: Order Comment: Speci men Type: BLOOD SPECIMENOrdering Facility: [facility] Address: [address] [place] [address] Performed By: #### 2 4323-8, ####[facility] [id number] [place] [address] [place] Anion gap [Moles/Vol] 11 mmol/L Normal 8-15 [facility] Comment on above: Order Comment: Speci men Type: BLOOD SPECIMENOrdering Facility: [facility] Address: [address] [place] [address] Performed By: #### 2 4323-8, ####[facility] [place] [id number] [place] [address] [place] AST [Catalytic activity/Vol] 16 U/L Normal 14-40 [facility] Comment on above: Order Comment: Speci men Type: BLOOD SPECIMENOrdering Facility: [facility] Address: [address] [place] [address] Performed By: #### 2 4323-8, ####[facility] [id number] [place] [address] [place] Bilirubin [Mass/Vol] 0.4 mg/dL Normal 0.2-1.3 [facility] Comment on above: Order Comment: Speci men Type: BLOOD SPECIMENOrdering Facility: [facility] Address: [address] [place] [address] Performed By: #### 2 4323-8, ####[facility] [id number] [place] [address] [place] Calcium [Mass/Vol] 9.1 mg/dL Normal 8.5-10.2 [facility] Comment on above: Order Comment: Speci men Type: BLOOD SPECIMENOrdering Facility: [facility] Address: [address] [place] [address] Performed By: #### 2 4323-8, ####[facility] [id number] [place] [address] [place] Chloride [Moles/Vol] 105 mmol/L Normal 98-107 [facility] Comment on above: Order Comment: Speci men Type: BLOOD SPECIMENOrdering Facility: [facility] Address: [address] [place] [address] Performed By: #### 2 4323-8, ####[facility] [id number] [place] [address] [place] CO2 [Moles/Vol] 25 mmol/L Normal 22-30 [facility] Comment on above: Order Comment: Speci men Type: BLOOD SPECIMENOrdering Facility: [facility] Address: [address] [place] [address] Performed By: #### 2 4323-8, ####[facility] [id number] [place] [address] [place] Creatinine [Mass/Vol] 0.89 mg/dL Normal 0.73-1.22 [facility] Comment on above: Order Comment: Speci men Type: BLOOD SPECIMENOrdering Facility: [facility] Address: [address] [place] [address] Performed By: #### 2 4323-8, ####[facility] [id number] [place] [address] [place] Creatinine and Glomerular filtration rate.predicted panel (S/P/Bld) 94 mL/min/1.73m??? Normal >=60 [facility] Comment on above: Order Comment: Speci men Type: BLOOD SPECIMENOrdering Facility: [facility] Address: [address] [place] [address] Result Comment: Carol mated Glomerular Filtration Rate [...] reflect actual GFR. Performed By: #### 2 432-8, ####[facility] [id number] [place] [address] [place] Glucose [Mass/Vol] 100 mg/dL High 74-99 [facility] Comment on above: Order Comment: Sara randle Type: BLOOD SPECIMENOrdering Facility: [facility] Address: [address] [place] [address] Result Comment: The [place] Diabetes Association (ADA) provides guidance for cutoff [...] Standards of Medical Care in Diabetes 2016, [place] [employer]. Diabetes Care. 2016.39(Suppl 1). Performed By: #### 2 432-8, ####[facility] [id number] [place] [address] [place] Potassium [Moles/Vol] 4.3 mmol/L Normal 3.7-5.1 [facility] Comment on above: Order Comment: Sara randle Type: BLOOD SPECIMENOrdering Facility: [facility] Address: [address] [place] [address] Performed By: #### 2 432-8, ####[facility] [id number] [place] [address] [place] Protein [Mass/Vol] 6.5 g/dL Normal 6.3-8.0 [facility] Comment on above: Order Comment: Speci men Type: BLOOD SPECIMENOrdering Facility: [facility] Address: [address] [place] [address] Performed By: #### 2 4323-8, ####[facility] [id number] [place] [address] [place] Sodium [Moles/Vol] 141 mmol/L Normal 136-144 [facility] Comment on above: Order Comment: Speci men Type: BLOOD SPECIMENOrdering Facility: [facility] Address: [address] [place] [address] Performed By: #### 2 4323-8, ####[facility] [id number] [place] [address] [place] Urea nitrogen [Mass/Vol] 22 mg/dL Normal 9-24 [facility] Comment on above: Order Comment: Speci men Type: BLOOD SPECIMENOrdering Facility: [facility] Address: [address] [place] [address] Performed By: #### 2 4323-8, ####[facility] [id number] [place] [address] [place] FERRITINon 04-23-2024 Ferritin [Mass/Vol] 589.0 ng/mL High 30.3 - 565.7 ng/mL [facility] Ferritin SerPl-mCncon 2023 Ferritin [Mass/Vol] 589.0 ng/mL High 30.3-565.[address] [facility] Comment on above: Order Comment: Speci men Type: BLOOD SPECIMENOrdering Facility: [facility] Address: [address] [place] [address] Performed By: #### 1 988-5, 2276-4 ####[facility] [id number] [place] [address] [place] Ferritin [Mass/Vol]on 2023 Interpretation and review of laboratory results Abnormal [facility] LACTATE DEHYDROGENASEon 06- LDH [Catalytic activity/Vol] 150 U/L 135 - 225 U/L [facility] LDH SerPl-cCncon 04-23-2024 LDH [Catalytic activity/Vol] 150 U/L Normal 135-225 [facility] Comment on above: Order Comment: Dottyi razia Type: BLOOD SPECIMENOrdering Facility: [facility] Address: [address] [place] [address] Performed By: #### 2 532-0 ####[facility] [id number] [place] [address] [place] LDH [Catalytic activity/Vol] on 04-23-2024 Interpretation and review of laboratory results Normal [facility] MAGNESIUMon 04-23-2024 Magnesium [Mass/Vol] 2.1 mg/dL 1.7 - 2 .3 mg/dL [facility] Magnesium SerPl-mCncon 04-23 Magnesium [Mass/Vol] 2.1 mg/dL Normal 1.7-2.3 [facility] Comment on above: Order Comment: Sara randle Type: BLOOD SPECIMENOrdering Facility: [facility] Address: [address] [place] [address] Performed By: #### 2 4323-8, 87516-3 ####[facility] [place] [id number] [place] [address] [place] Magnesium [Mass/Vol]on 04-23 Interpretation and review of laboratory results Normal [facility] No Panel Informationon 04-23 [facility] RUBEOLA (MEASLES)IGGon 04-23 MEASLES IGG AB, QUAL Positive Normal Positive [facility] Comment on above: Order Comment: Sara randle Type: BLOOD SPECIMENOrdering Facility: [facility] Address: [address] [place] [address] Result Comment: The result suggests recent or past exposure to Measles virus or Measles vaccination. The current test does not detect neutralizing antibodies. Positive result may also be seen due to presence of passively-transferred antibodies. Please correlate with patient's history. Performed By: #### V ZLyubovG2, MEASLG ####[facility] LABCLIA [id number] [place] [address] [place] TYPE + SCREENon 04-23-2024 ABO group Nom (Bld) B [facility] Blood group antibody screen Ql Negative [facility] HIstorical Ab Scr Status Negative [facility] Rh Nom (Bld) Negative [facility] Type and Screen Expiration 04/26/2024 23:59 [facility] ABO B Normal [facility] Comment on above: Order Comment: Speci men Type: BLOOD SPECIMENOrdering Facility: [facility] Address: [address] [place] [address] Performed By: #### T SCR ####[facility] BLOOD BANKCLIA [id number] [address] STATES OF [facility] HISTORICAL AB SCR STATUS Negative Normal [facility] Comment on above: Order Comment: Speci men Type: BLOOD SPECIMENOrdering Facility: [facility] Address: [address] [place] [address] Performed By: #### T SCR ####[facility] BLOOD BANKCLIA [id number] [address] [place] Rh Nom (Bld) Negative Normal [facility] Comment on above: Order Comment: Speci men Type: BLOOD SPECIMENOrdering Facility: [facility] Address: [address] [place] [address] Performed By: #### T SCR ####[facility] BLOOD BANKCLIA [id number] [place] [address] [place] TYPE AND SCREEN EXPIRATION 04/26/2024 23:59 Normal [facility] Comment on above: Order Comment: Speci men Type: BLOOD SPECIMENOrdering Facility: [facility] Address: [address] [place] [address] Performed By: #### T SCR ####[facility] BLOOD BANKCLIA [id number] [place] [address] [place] VARICELLA ZOSTER IGGon 04-23 VARICELLA ZOSTER IGG, QUAL Positive Normal Positive [facility] Comment on above: Order Comment: Sara randle Type: BLOOD SPECIMENOrdering Facility: [facility] Address: [address] [place] [address] Result Comment: The result suggests recent or past exposure to Varicella-Zoster virus or chickenpox vaccination or zoster vaccination. Positive result may also be seen due to presence of passively-transferred antibodies. Please correlate with patient's history. Performed By: #### V ZVG2, MEASLG ####[facility] LABCLIA [id number] [address] [place] CASE MANAGEMon 04-17-2024 CASE MANAGEM Normal [facility] CBC panel Auto (Bld)on 04-17 Erythrocyte distribution width (RBC) [Ratio] 15.4 % High 11.5-15.0 [facility] Comment on above: Order Comment: Sara randle Type: BLOOD SPECIMENOrdering Facility: [facility] Address: [address] [place] [address] Performed By: #### 5 8410-2 ####[facility] LABIA [id number] [place] [address] [place] Hematocrit (Bld) [Volume fraction] 31.4 % Low 39.0-51.0 [facility] Comment on above: Order Comment: Speci men Type: BLOOD SPECIMENOrdering Facility: [facility] Address: [address] [place] [address] Performed By: #### 5 8410-2 ####[facility] LABCLIA [id number] [place] [address] [place] Hemoglobin (Bld) [Mass/Vol] 10.9 g/dL Low 13.0-17.0 [facility] Comment on above: Order Comment: Speci men Type: BLOOD SPECIMENOrdering Facility: [facility] Address: [address] [place] [address] Performed By: #### 5 8410-2 ####[facility] LABIA [id number] [place] [address] [place] MCH (RBC) [Entitic mass] 31.2 pg Normal 26.0-34.0 [facility] Comment on above: Order Comment: Speci men Type: BLOOD SPECIMENOrdering Facility: [facility] Address: [address] [place] [address] Performed By: #### 5 8410-2 ####[facility] LABIA [id number] [place] [address] [place] MCHC (RBC) [Mass/Vol] 34.7 g/dL Normal 30.5-36.0 [facility] Comment on above: Order Comment: Speci men Type: BLOOD SPECIMENOrdering Facility: [facility] Address: [address] [place] [address] Performed By: #### 5 8410-2 ####[facility] LABIA [id number] [place] [address] [place] MCV (RBC) [Entitic vol] 90.0 fL Normal 80.0-100.0 [facility] Comment on above: Order Comment: Speci men Type: BLOOD SPECIMENOrdering Facility: [facility] Address: [address] [place] [address] Performed By: #### 5 8410-2 ####[facility] LABIA [id number] [place] [address] [place] Nucleated RBC (Bld) [#/Vol] 10*3/uL Normal <0.01 [facility] Comment on above: Order Comment: Speci men Type: BLOOD SPECIMENOrdering Facility: [facility] Address: [address] [place] [address] Performed By: #### 5 8410-2 ####[facility] LABIA [id number] [place] [address] [place] Platelet mean volume (Bld) [Entitic vol] 11.5 fL Normal 9.0-12.7 [facility] Comment on above: Order Comment: Speci men Type: BLOOD SPECIMENOrdering Facility: [facility] Address: [address] [place] [address] Performed By: #### 5 8410-2 ####[facility] LABIA [id number] [place] [address] [place] Platelets (Bld) [#/Vol] 59 10*3/uL Low 150-400 [facility] Comment on above: Order Comment: Speci men Type: BLOOD SPECIMENOrdering Facility: [facility] Address: [address] [place] [address] Result Comment: Resu lts checked and verified.No clot detected. Performed By: #### 5 8410-2 ####[facility] LABIA [id number] [place] [address] [place] RBC (Bld) [#/Vol] 3.49 10*6/uL Low 4.20-6.00 [facility] Comment on above: Order Comment: Speci men Type: BLOOD SPECIMENOrdering Facility: [facility] Address: [address] [place] [address] Performed By: #### 5 8410-2 ####[facility] LABIA [id number] [place] [address] [place] WBC (Bld) [#/Vol] 1.87 10*3/uL Low 3.70-11.00 [facility] Comment on above: Order Comment: Speci men Type: BLOOD SPECIMENOrdering Facility: [facility] Address: [address] [place] [address] Result Comment: No c lot detected. Performed By: #### 5 8410-2 ####[facility] LABIA [id number] [place] [id number] [place] CNCOon 04-17-2024 CNCO Letter Text Normal [facility] CNDSon 04-17-2024 CNDS Normal [facility] Comprehensive metabolic 2000 panelon 04-17-2024 Albumin [Mass/Vol] 3.7 g/dL Low 3.9-4.9 [facility] Comment on above: Order Comment: Speci men Type: BLOOD SPECIMENOrdering Facility: [facility] Address: [address] [place] [address] Performed By: #### 2 4323-8, , 2776-11 ####[facility] LABCLIA [id number] [place] [address] [place] ALP [Catalytic activity/Vol] 107 U/L Normal 38-113 [facility] Comment on above: Order Comment: Speci men Type: BLOOD SPECIMENOrdering Facility: [facility] Address: [address] [place] [address] Performed By: #### 2 4323-8, , 2776-11 ####[facility] LABCLIA [id number] [place] [address] [place] ALT [Catalytic activity/Vol] 53 U/L Normal 10-54 [facility] Comment on above: Order Comment: Speci men Type: BLOOD SPECIMENOrdering Facility: [facility] Address: [address] [place] [address] Performed By: #### 2 4323-8, , 2776-11 ####[facility] LABCLIA [id number] [place] [id number] [place] Anion gap [Moles/Vol] 10 mmol/L Normal 8-15 [facility] Comment on above: Order Comment: Speci men Type: BLOOD SPECIMENOrdering Facility: [facility] Address: [address] [place] [address] Performed By: #### 2 4323-8, 84113-7, 2776- ####[facility] LABCLIA [id number] [address] [address] [place] AST [Catalytic activity/Vol] 28 U/L Normal 14-40 [facility] Comment on above: Order Comment: Speci men Type: BLOOD SPECIMENOrdering Facility: [facility] Address: [address] [place], [place] [address] Performed By: #### 2 4323-8, , 2776-11 ####[facility] LABCLIA [id number] [place] [id number] [place] Bilirubin [Mass/Vol] 0.4 mg/dL Normal 0.2-1.3 [facility] Comment on above: Order Comment: Speci men Type: BLOOD SPECIMENOrdering Facility: [facility] Address: [address] [place] [address] Performed By: #### 2 4323-8, , 2776-11 ####[facility] LABCLIA [id number] [place] [address] [place] Calcium [Mass/Vol] 9.0 mg/dL Normal 8.5-10.2 [facility] Comment on above: Order Comment: Speci men Type: BLOOD SPECIMENOrdering Facility: [facility] Address: [address] [place] [address] Performed By: #### 2 4323-8, , 2776-11 ####[facility] LABCLIA [id number] [place] [id number] [place] Chloride [Moles/Vol] 109 mmol/L High 98-107 [facility] Comment on above: Order Comment: Speci men Type: BLOOD SPECIMENOrdering Facility: [facility] Address: [address] [place], [place] [address] Performed By: #### 2 4323-8, 69532-2, 2776-11 ####[facility] LABCLIA [id number] [place] [address] [place] CO2 [Moles/Vol] 22 mmol/L Normal 22-30 [facility] Comment on above: Order Comment: Sara randle Type: BLOOD SPECIMENOrdering Facility: [facility] Address: [address] [place] [address] Performed By: #### 2 4323-8, 36710-0, 2776-11 ####[facility] LABCLIA [id number] [place] [address] [place] Creatinine [Mass/Vol] 0.93 mg/dL Normal 0.73-1.22 [facility] Comment on above: Order Comment: Sara randle Type: BLOOD SPECIMENOrdering Facility: [facility] Address: [address] [place] [address] Performed By: #### 2 4323-8, , 2776-11 ####[facility] LABIA [id number] [place] [address] [place] Creatinine and Glomerular filtration rate.predicted panel (S/P/Bld) 90 mL/min/1.73m??? Normal >=60 [facility] Comment on above: Order Comment: Sara randle Type: BLOOD SPECIMENOrdering Facility: [facility] Address: [address] [place] [address] Result Comment: Carol mated Glomerular Filtration Rate [...] actual GFR. Performed By: #### 2 4323-8, 42026-3, 2776-11 ####[facility] LABCLIA [id number] [place] [id number] [place] Glucose [Mass/Vol] 93 mg/dL Normal 74-99 [facility] Comment on above: Order Comment: Speci men Type: BLOOD SPECIMENOrdering Facility: [facility] Address: [address] [place] [address] Result Comment: The [place] [employer] (ADA) provides guidance for cutoff [...] Standards of Medical Care in Diabetes 2016, [place] [employer]. Diabetes Care. 2016.39(Suppl 1). Performed By: #### 2 4323-8, 47128-6, 2776- ####[facility] LABCLIA [id number] [place] [address] [place] Potassium [Moles/Vol] 3.9 mmol/L Normal 3.7-5.1 [facility] Comment on above: Order Comment: Sara randle Type: BLOOD SPECIMENOrdering Facility: [facility] Address: [address] [place] [address] Performed By: #### 2 4323-8, , 2776-11 ####[facility] LABCLIA [id number] [place] [id number] [place] Protein [Mass/Vol] 5.6 g/dL Low 6.3-8.0 [facility] Comment on above: Order Comment: Sara randle Type: BLOOD SPECIMENOrdering Facility: [facility] Address: [address] [place] [id number] Performed By: #### 2 4323-8, , 2776- ####[facility] LABCLIA [id number] [place] [id number] [place] Sodium [Moles/Vol] 141 mmol/L Normal 136-144 [facility] Comment on above: Order Comment: Speci men Type: BLOOD SPECIMENOrdering Facility: [facility] Address: [address] [place] [address] Performed By: #### 2 4323-8, , 2776-11 ####[facility] LABCLIA [id number] [place] [address] [place] Urea nitrogen [Mass/Vol] 17 mg/dL Normal 9-24 [facility] Comment on above: Order Comment: Speci men Type: BLOOD SPECIMENOrdering Facility: [facility] Address: [address] [place] [address] Performed By: #### 2 4323-8, , 2776-11 ####[facility] LABCLIA [id number] [place] [address] [place] Magnesium SerPl-ncon 04-17 Magnesium [Mass/Vol] 2.4 mg/dL High 1.7-2.3 [facility] Comment on above: Order Comment: Speci men Type: BLOOD SPECIMENOrdering Facility: [facility] Address: [address] [place] [address] Performed By: #### 2 4323-8, , 2776-11 ####[facility] LABCLIA [id number] [place] [id number] [place] NURSING PROGon 04-17-2024 NURSING PROG Normal [facility] Phosphate SerPl-mCncon 04-17 Phosphate [Mass/Vol] 2.7 mg/dL Normal 2.7-4.8 [facility] Comment on above: Order Comment: Speci men Type: BLOOD SPECIMENOrdering Facility: [facility] Address: [address] [place] [address] Performed By: #### 2 4323-8, , 2776-11 ####[facility] LABCLIA [id number] [place] [address] [place] CBC panel Auto (Bld)on 04-16 Erythrocyte distribution width (RBC) [Ratio] 14.5 % Normal 11.5-15.0 [facility] Comment on above: Order Comment: Speci men Type: BLOOD SPECIMENOrdering Facility: [facility] Address: [address] [place] [address] Performed By: #### 5 8410-2 ####[facility] LABIA [id number] [place] [address] [place] Hematocrit (Bld) [Volume fraction] 31.5 % Low 39.0-51.0 [facility] Comment on above: Order Comment: Speci men Type: BLOOD SPECIMENOrdering Facility: [facility] Address: [address] [place] [address] Performed By: #### 5 8410-2 ####[facility] [id number] [address] [place] Hemoglobin (Bld) [Mass/Vol] 11.2 g/dL Low 13.0-17.0 [facility] Comment on above: Order Comment: Speci men Type: BLOOD SPECIMENOrdering Facility: [facility] Address: [address] [place] [address] Performed By: #### 5 8410-2 ####[facility] LABIA [id number] [place] [address] [place] MCH (RBC) [Entitic mass] 31.5 pg Normal 26.0-34.0 [facility] Comment on above: Order Comment: Speci men Type: BLOOD SPECIMENOrdering Facility: [facility] Address: [address] [place] [address] Performed By: #### 5 8410-2 ####[facility] LABIA [id number] [place] [address] [place] MCHC (RBC) [Mass/Vol] 35.6 g/dL Normal 30.5-36.0 [facility] Comment on above: Order Comment: Speci men Type: BLOOD SPECIMENOrdering Facility: [facility] Address: [address] [place] [address] Performed By: #### 5 8410-2 ####[facility] LABIA [id number] [place] [address] [place] MCV (RBC) [Entitic vol] 88.5 fL Normal 80.0-100.0 [facility] Comment on above: Order Comment: Speci men Type: BLOOD SPECIMENOrdering Facility: [facility] Address: [address] [place] [address] Performed By: #### 5 8410-2 ####[facility] LABIA [id number] [place] [address] [place] Nucleated RBC (Bld) [#/Vol] 10*3/uL Normal <0.01 [facility] Comment on above: Order Comment: Speci men Type: BLOOD SPECIMENOrdering Facility: [facility] Address: [address] [place] [address] Performed By: #### 5 8410-2 ####[facility] LABIA [id number] [place] [address] [place] Platelet mean volume (Bld) [Entitic vol] 11.7 fL Normal 9.0-12.7 [facility] Comment on above: Order Comment: Speci men Type: BLOOD SPECIMENOrdering Facility: [facility] Address: [address] [place] [address] Performed By: #### 5 8410-2 ####[facility] LABIA [id number] [place] [address] [place] Platelets (Bld) [#/Vol] 49 10*3/uL Low 150-400 [facility] Comment on above: Order Comment: Speci men Type: BLOOD SPECIMENOrdering Facility: [facility] Address: [address] [place] [address] Result Comment: Resu lts checked and verified.No clot detected. Performed By: #### 5 8410-2 ####[facility] LABCLIA [id number] [place] [address] [place] RBC (Bld) [#/Vol] 3.56 10*6/uL Low 4.20-6.00 [facility] Comment on above: Order Comment: Speci men Type: BLOOD SPECIMENOrdering Facility: [facility] Address: [address] [place] [address] Performed By: #### 5 8410-2 ####[facility] LABIA [id number] [place] [address] [place] WBC (Bld) [#/Vol] 1.44 10*3/uL Low 3.70-11.00 [facility] Comment on above: Order Comment: Speci men Type: BLOOD SPECIMENOrdering Facility: [facility] Address: [address] [place] [address] Result Comment: No c lot detected. Performed By: #### 5 8410-2 ####[facility] LABCLIA [id number] [place] [address] [place] Comprehensive metabolic 2000 panelon 04-16-2024 Albumin [Mass/Vol] 3.6 g/dL Low 3.9-4.9 [facility] Comment on above: Order Comment: Speci men Type: BLOOD SPECIMENOrdering Facility: [facility] Address: [address] [place] [address] Performed By: #### 2 4323-8, 38227-0, 2777-1 ####[facility] LABIA [id number] [place] [address] [place] ALP [Catalytic activity/Vol] 116 U/L High 38-113 [facility] Comment on above: Order Comment: Speci men Type: BLOOD SPECIMENOrdering Facility: [facility] Address: [address] [place] [address] Performed By: #### 2 4323-8, 70131-4, 2776- ####[facility] LABCLIA [id number] [place] [address] [place] ALT [Catalytic activity/Vol] 53 U/L Normal 10-54 [facility] Comment on above: Order Comment: Speci men Type: BLOOD SPECIMENOrdering Facility: [facility] Address: [address] [place] [address] Performed By: #### 2 4323-8, 83622-1, 2776-11 ####[facility] LABCLIA [id number] [place] [address] [place] Anion gap [Moles/Vol] 9 mmol/L Normal 8-15 [facility] Comment on above: Order Comment: Speci men Type: BLOOD SPECIMENOrdering Facility: [facility] Address: [address] [place] [address] Performed By: #### 2 4323-8, 41854-7, 2776-11 ####[facility] LABIA [id number] [place] [address] [place] AST [Catalytic activity/Vol] 28 U/L Normal 14-40 [facility] Comment on above: Order Comment: Speci men Type: BLOOD SPECIMENOrdering Facility: [facility] Address: [address] [place] [address] Performed By: #### 2 4323-8, 04061-6, 2776-11 ####[facility] LABIA [id number] [place] [id number] [place] Bilirubin [Mass/Vol] 0.5 mg/dL Normal 0.2-1.3 [facility] Comment on above: Order Comment: Speci men Type: BLOOD SPECIMENOrdering Facility: [facility] Address: [address] [place] [address] Performed By: #### 2 4323-8, 91873-3, 2776-11 ####[facility] LABCLIA [id number] [address] [address] [place] Calcium [Mass/Vol] 9.2 mg/dL Normal 8.5-10.2 [facility] Comment on above: Order Comment: Speci men Type: BLOOD SPECIMENOrdering Facility: [facility] Address: [address] [place] [address] Performed By: #### 2 4323-8, , 2776-11 ####[facility] LABCLIA [id number] [place] [address] [place] Chloride [Moles/Vol] 109 mmol/L High 98-107 [facility] Comment on above: Order Comment: Speci men Type: BLOOD SPECIMENOrdering Facility: [facility] Address: [address] [place] [address] Performed By: #### 2 4323-8, , 2776-11 ####[facility] LABCLIA [id number] [place] [address] [place] CO2 [Moles/Vol] 23 mmol/L Normal 22-30 [facility] Comment on above: Order Comment: Speci men Type: BLOOD SPECIMENOrdering Facility: [facility] Address: [address] [place] [address] Performed By: #### 2 4323-8, , 2776-11 ####[facility] LABCLIA [id number] [address] [address] [place] Creatinine [Mass/Vol] 0.83 mg/dL Normal 0.73-1.22 [facility] Comment on above: Order Comment: Speci men Type: BLOOD SPECIMENOrdering Facility: [facility] Address: [address] [place], [place] [address] Performed By: #### 2 4323-8, , 2776-11 ####[facility] LABCLIA [id number] [place] [address] [place] Creatinine and Glomerular filtration rate.predicted panel (S/P/Bld) 96 mL/min/1.73m??? Normal >=60 [facility] Comment on above: Order Comment: Sara randle Type: BLOOD SPECIMENOrdering Facility: [facility] Address: [address] [place] [address] Result Comment: Carol mated Glomerular Filtration Rate [...] actual GFR. Performed By: #### 2 4323-8, 40239-3, 2777-1 ####[facility] [id number] [place] [address] [place] Glucose [Mass/Vol] 130 mg/dL High 74-99 [facility] Comment on above: Order Comment: Sara randle Type: BLOOD SPECIMENOrdering Facility: [facility] Address: [address] [place] [address] Result Comment: The [place] [employer] (ADA) provides guidance for cutoff [...] Standards of Medical Care in Diabetes 2016, [place] [employer]. Diabetes Care. 2016.39(Suppl 1). Performed By: #### 2 4323-8, 79006-1, 2777-1 ####[facility] LABIA [id number] [address] [address] [place] Potassium [Moles/Vol] 4.4 mmol/L Normal 3.7-5.1 [facility] Comment on above: Order Comment: Speci men Type: BLOOD SPECIMENOrdering Facility: [facility] Address: [address] [place], [place] [address] Performed By: #### 2 4323-8, , 2776- ####[facility] LABCLIA [id number] [place] [id number] [place] Protein [Mass/Vol] 5.8 g/dL Low 6.3-8.0 [facility] Comment on above: Order Comment: Speci men Type: BLOOD SPECIMENOrdering Facility: [facility] Address: [address] [place] [address] Performed By: #### 2 4323-8, , 2776-11 ####[facility] LABIA [id number] [place] [id number] [place] Sodium [Moles/Vol] 141 mmol/L Normal 136-144 [facility] Comment on above: Order Comment: Speci men Type: BLOOD SPECIMENOrdering Facility: [facility] Address: [address] [place] [address] Performed By: #### 2 4323-8, , 2776-11 ####[facility] LABCLIA [id number] [address] [address] [place] Urea nitrogen [Mass/Vol] 16 mg/dL Normal 9-24 [facility] Comment on above: Order Comment: Speci men Type: BLOOD SPECIMENOrdering Facility: [facility] Address: [address] [place] [address] Performed By: #### 2 4323-8, , 2776- ####[facility] LABCLIA [id number] [address] [address] [place] Magnesium SerPl-ncon 04-16 Magnesium [Mass/Vol] 2.4 mg/dL High 1.7-2.3 [facility] Comment on above: Order Comment: Speci men Type: BLOOD SPECIMENOrdering Facility: [facility] Address: [address] [place] [address] Performed By: #### 2 4323-8, 10993-5, 2777-1 ####[facility] LABCLIA [id number] [place] [address] [place] Phosphate SerPl-mCncon 04-16 Phosphate [Mass/Vol] 3.4 mg/dL Normal 2.7-4.8 [facility] Comment on above: Order Comment: Speci men Type: BLOOD SPECIMENOrdering Facility: [facility] Address: [address] [place] [address] Performed By: #### 2 4323-8, 31455-0, 2776- ####[facility] LABIA [id number] [place] [address] [place] CASE MGT INIT ASSESon 2023 CASE MGT INIT ASSES Normal [facility] CBC panel Auto (Bld)on 04-15 Erythrocyte distribution width (RBC) [Ratio] 14.2 % Normal 11.5-15.0 [facility] Comment on above: Order Comment: Speci men Type: BLOOD SPECIMENOrdering Facility: [facility] Address: [address] [place] [address] Performed By: #### 5 8410-2 ####[facility] LABIA [id number] [place] [address] [place] Hematocrit (Bld) [Volume fraction] 32.5 % Low 39.0-51.0 [facility] Comment on above: Order Comment: Speci men Type: BLOOD SPECIMENOrdering Facility: [facility] Address: [address] [place] [address] Performed By: #### 5 8410-2 ####[facility] LABIA [id number] [place] [address] [place] Hemoglobin (Bld) [Mass/Vol] 11.2 g/dL Low 13.0-17.0 [facility] Comment on above: Order Comment: Speci men Type: BLOOD SPECIMENOrdering Facility: [facility] Address: [address] [place] [address] Performed By: #### 5 8410-2 ####[facility] LABIA [id number] [place] [address] [place] MCH (RBC) [Entitic mass] 30.9 pg Normal 26.0-34.0 [facility] Comment on above: Order Comment: Speci men Type: BLOOD SPECIMENOrdering Facility: [facility] Address: [address] [place] [address] Performed By: #### 5 8410-2 ####[facility] LABIA [id number] [address] [place] MCHC (RBC) [Mass/Vol] 34.5 g/dL Normal 30.5-36.0 [facility] Comment on above: Order Comment: Speci men Type: BLOOD SPECIMENOrdering Facility: [facility] Address: [address] [place] [address] Performed By: #### 5 8410-2 ####[facility] LABIA [id number] [place] [address] [place] MCV (RBC) [Entitic vol] 89.8 fL Normal 80.0-100.0 [facility] Comment on above: Order Comment: Speci men Type: BLOOD SPECIMENOrdering Facility: [facility] Address: [address] [place] [address] Performed By: #### 5 8410-2 ####[facility] LABIA [id number] [place] [address] [place] Nucleated RBC (Bld) [#/Vol] 10*3/uL Normal <0.01 [facility] Comment on above: Order Comment: Speci men Type: BLOOD SPECIMENOrdering Facility: [facility] Address: [address] [place] [address] Performed By: #### 5 8410-2 ####[facility] LABCLIA [id number] [place] [address] [place] Platelet mean volume (Bld) [Entitic vol] 12.5 fL Normal 9.0-12.7 [facility] Comment on above: Order Comment: Speci men Type: BLOOD SPECIMENOrdering Facility: [facility] Address: [address] [place] [address] Performed By: #### 5 8410-2 ####[facility] LABCLIA [id number] [place] [address] [place] Platelets (Bld) [#/Vol] 46 10*3/uL Low 150-400 [facility] Comment on above: Order Comment: Speci men Type: BLOOD SPECIMENOrdering Facility: [facility] Address: [address] [place] [address] Performed By: #### 5 8410-2 ####[facility] LABCLIA [id number] [place] [address] [place] RBC (Bld) [#/Vol] 3.62 10*6/uL Low 4.20-6.00 [facility] Comment on above: Order Comment: Speci men Type: BLOOD SPECIMENOrdering Facility: [facility] Address: [address] [place] [address] Performed By: #### 5 8410-2 ####[facility] LABCLIA [id number] [place] [address] [place] WBC (Bld) [#/Vol] 0.64 10*3/uL Low 3.70-11.00 [facility] Comment on above: Order Comment: Speci men Type: BLOOD SPECIMENOrdering Facility: [facility] Address: [address] [place] [address] Result Comment: No c lot detected. Performed By: #### 5 8410-2 ####[facility] LABCLIA [id number] [place] [id number] [place] CT BRAIN WO IVCONon 04-15-20 CT BRAIN WO IVCON Normal [facility] metabolic 2000 panelon 04-15-2024 Albumin [Mass/Vol] 3.6 g/dL Low 3.9-4.9 [facility] Comment on above: Order Comment: Speci men Type: BLOOD SPECIMENOrdering Facility: [facility] Address: [address] [place] [address] Performed By: #### 2 4323-8, 25773-7, 2776-11 ####[facility] LABCLIA [id number] [place] [address] [place] ALP [Catalytic activity/Vol] 119 U/L High 38-113 [facility] Comment on above: Order Comment: Speci men Type: BLOOD SPECIMENOrdering Facility: [facility] Address: [address] [place] [address] Performed By: #### 2 4323-8, , 2776- ####[facility] LABCLIA [id number] [place] [address] [place] ALT [Catalytic activity/Vol] 48 U/L Normal 10-54 [facility] Comment on above: Order Comment: Speci men Type: BLOOD SPECIMENOrdering Facility: [facility] Address: [address] [place] [address] Performed By: #### 2 4323-8, , 2776- ####[facility] LABCLIA [id number] [place] [id number] [place] Anion gap [Moles/Vol] 12 mmol/L Normal 8-15 [facility] Comment on above: Order Comment: Speci men Type: BLOOD SPECIMENOrdering Facility: [facility] Address: [address] [place] [address] Performed By: #### 2 4323-8, , 2776-11 ####[facility] LABCLIA [id number] [address] [address] [place] AST [Catalytic activity/Vol] 38 U/L Normal 14-40 [facility] Comment on above: Order Comment: Speci men Type: BLOOD SPECIMENOrdering Facility: [facility] Address: [address] [place] [address] Performed By: #### 2 4323-8, , 2776-11 ####[facility] LABCLIA [id number] [address] [address] [place] Bilirubin [Mass/Vol] 0.6 mg/dL Normal 0.2-1.3 [facility] Comment on above: Order Comment: Speci men Type: BLOOD SPECIMENOrdering Facility: [facility] Address: [address] [place] [address] Performed By: #### 2 4323-8, , 2776-11 ####[facility] LABCLIA [id number] [address] [address] [place] Calcium [Mass/Vol] 9.0 mg/dL Normal 8.5-10.2 [facility] Comment on above: Order Comment: Speci men Type: BLOOD SPECIMENOrdering Facility: [facility] Address: [address] [place] [address] Performed By: #### 2 4323-8, , 2776-11 ####[facility] LABCLIA [id number] [address] [address] [place] Chloride [Moles/Vol] 105 mmol/L Normal 98-107 [facility] Comment on above: Order Comment: Speci men Type: BLOOD SPECIMENOrdering Facility: [facility] Address: [address] [place], [place] [address] Performed By: #### 2 4323-8, , 2776-11 ####[facility] LABCLIA [id number] [address] [address] [place] CO2 [Moles/Vol] 20 mmol/L Low 22-30 [facility] Comment on above: Order Comment: Speci men Type: BLOOD SPECIMENOrdering Facility: [facility] Address: [address] [place] [address] Performed By: #### 2 4323-8, , 2776-11 ####[facility] LABCLIA [id number] [place] [address] [place] Creatinine [Mass/Vol] 0.85 mg/dL Normal 0.73-1.22 [facility] Comment on above: Order Comment: Speci men Type: BLOOD SPECIMENOrdering Facility: [facility] Address: [address] [place] [address] Performed By: #### 2 4323-8, , 2776-11 ####[facility] LABIA [id number] [place] [address] [place] Creatinine and Glomerular filtration rate.predicted panel (S/P/Bld) 95 mL/min/1.73m??? Normal >=60 [facility] Comment on above: Order Comment: Speci men Type: BLOOD SPECIMENOrdering Facility: [facility] Address: [address] [place] [address] Result Comment: Carol mated Glomerular Filtration Rate [...] Performed By: #### 2 4323-8, , 2776-11 ####[facility] LABCLIA [id number] [address] [address] [place] Glucose [Mass/Vol] 115 mg/dL High 74-99 [facility] Comment on above: Order Comment: Speci men Type: BLOOD SPECIMENOrdering Facility: [facility] Address: [address] [place] [address] Result Comment: The [place] [employer] (ADA) provides guidance for cutoff [...] Standards of Medical Care in Diabetes 2016, [place] [employer]. Diabetes Care. 2016.39(Suppl 1). Performed By: #### 2 4323-8, , 2776-11 ####[facility] LABIA [id number] [place] [id number] [place] Potassium [Moles/Vol] 4.6 mmol/L Normal 3.7-5.1 [facility] Comment on above: Order Comment: Speci men Type: BLOOD SPECIMENOrdering Facility: [facility] Address: [address] [place] [address] Performed By: #### 2 4323-8, 66732-5, 2776-11 ####[facility] LABIA [id number] [place] [id number] [place] Protein [Mass/Vol] 6.1 g/dL Low 6.3-8.0 [facility] Comment on above: Order Comment: Speci men Type: BLOOD SPECIMENOrdering Facility: [facility] Address: [address] [place] [address] Performed By: #### 2 4323-8, 14110-3, 2776-11 ####[facility] LABCLIA [id number] [address] [address] [place] Sodium [Moles/Vol] 137 mmol/L Normal 136-144 [facility] Comment on above: Order Comment: Speci men Type: BLOOD SPECIMENOrdering Facility: [facility] Address: [address] [place] [address] Performed By: #### 2 4323-8, 67528-9, 2776-11 ####[facility] LABCLIA [id number] [place] [address] [place] Urea nitrogen [Mass/Vol] 13 mg/dL Normal 9-24 [facility] Comment on above: Order Comment: Speci men Type: BLOOD SPECIMENOrdering Facility: [facility] Address: [address] [place] [address] Performed By: #### 2 4323-8, , 2776-11 ####[facility] LABCLIA [id number] [place] [id number] [place] ECG COMPLETEon 04-15-2024 ECG COMPLETE Normal [facility] HISTORY PHYSICALon HISTORY PHYSICAL Normal [facility] Magnesium SerPl-mCncon 04-15 Magnesium [Mass/Vol] 2.3 mg/dL Normal 1.7-2.3 [facility] Comment on above: Order Comment: Speci men Type: BLOOD SPECIMENOrdering Facility: [facility] Address: [address] [place] [address] Performed By: #### 2 4323-8, 04960-4, 2776-11 ####[facility] LABCLIA [id number] [address] [address] [place] NURSING PROGon 04-15-2024 NURSING PROG Normal [facility] Phosphate SerPl-mCncon 04-15 Phosphate [Mass/Vol] 3.9 mg/dL Normal 2.7-4.8 [facility] Comment on above: Order Comment: Speci men Type: BLOOD SPECIMENOrdering Facility: [facility] Address: [address] [place] [address] Performed By: #### 2 4323-8, 92402-6, 2777-1 ####[facility] LABIA [id number] [place] [address] [place] THERAPY NTon 04-15-2024 THERAPY NT Normal [facility] THERAPY NT Normal [facility] Urinalysis complete panel (U )on 04-15-2024 Bacteria LM.HPF (Urine sed) [#/Area] Negative Normal Negative [facility] Comment on above: Order Comment: Speci men Type: URINE SPECIMENOrdering Facility: [facility] Address: [address] [place] [address] Performed By: #### 2 4356-8 ####[facility] LABCLIA [id number] [place] [address] [place] Bilirubin Ql (U) Negative Normal Negative [facility] Comment on above: Order Comment: Speci men Type: URINE SPECIMENOrdering Facility: [facility] Address: [address] [place] [address] Performed By: #### 2 4356-8 ####[facility] LABCLIA [id number] [place] [address] [place] Clarity (Unsp spec) Clear Normal Clear [facility] Comment on above: Order Comment: Speci men Type: URINE SPECIMENOrdering Facility: [facility] Address: [address] [place] [address] Performed By: #### 2 4356-8 ####[facility] LABCLIA [id number] [place] [address] [place] Color (U) Yellow Normal Yellow [facility] Comment on above: Order Comment: Speci men Type: URINE SPECIMENOrdering Facility: [facility] Address: [address] [place] [address] Performed By: #### 2 4356-8 ####[facility] LABCLIA [id number] [place] [address] [place] Epithelial cells LM.HPF (Urine sed) [#/Area] None Seen Normal [facility] Comment on above: Order Comment: Speci men Type: URINE SPECIMENOrdering Facility: [facility] Address: [address] [place] [address] Performed By: #### 2 4356-8 ####[facility] LABCLIA [id number] [place] [address] [place] Glucose Test strip (U) [Mass/Vol] Negative Normal Negative [facility] Comment on above: Order Comment: Speci men Type: URINE SPECIMENOrdering Facility: [facility] Address: [address] [place] [address] Performed By: #### 2 4356-8 ####[facility] LABCLIA [id number] [place] [address] [place] Hemoglobin Ql (U) Negative Normal Negative [facility] Comment on above: Order Comment: Speci men Type: URINE SPECIMENOrdering Facility: [facility] Address: [address] [place] [address] Performed By: #### 2 4356-8 ####[facility] LABCLIA [id number] [place] [address] [place] Hyaline casts (Urine sed) [#/Area] 0 /[LPF] Normal 0 /LPF [facility] Comment on above: Order Comment: Speci men Type: URINE SPECIMENOrdering Facility: [facility] Address: [address] [place] [address] Performed By: #### 2 4356-8 ####[facility] LABCLIA [id number] [place] [id number] [place] Ketones Ql (U) Trace Abnormal Negative [facility] Comment on above: Order Comment: Speci men Type: URINE SPECIMENOrdering Facility: [facility] Address: [address] [place] [address] Performed By: #### 2 4356-8 ####[facility] LABCLIA [id number] [place] [address] [place] Leukocyte esterase Test strip Ql (U) Negative Normal Negative [facility] Comment on above: Order Comment: Speci men Type: URINE SPECIMENOrdering Facility: [facility] Address: [address] [place] [address] Performed By: #### 2 4356-8 ####[facility] LABCLIA [id number] [place] [address] [place] Nitrite Ql (U) Negative Normal Negative [facility] Comment on above: Order Comment: Speci men Type: URINE SPECIMENOrdering Facility: [facility] Address: [address] [place] [address] Performed By: #### 2 4356-8 ####[facility] LABCLIA [id number] [place] [address] [place] pH (U) 6.0 [pH] Normal <8.5 [facility] Comment on above: Order Comment: Speci men Type: URINE SPECIMENOrdering Facility: [facility] Address: [address] [place] [address] Performed By: #### 2 4356-8 ####[facility] LABCLIA [id number] [place] [address] [place] Protein (U) [Mass/Vol] Negative Normal Negative [facility] Comment on above: Order Comment: Speci men Type: URINE SPECIMENOrdering Facility: [facility] Address: [address] [place] [address] Performed By: #### 2 4356-8 ####[facility] LABCLIA [id number] [place] [address] [place] RBC LM.HPF (Urine sed) [#/Area] 0-2 /HPF Normal 0-2 /HPF [facility] Comment on above: Order Comment: Speci men Type: URINE SPECIMENOrdering Facility: [facility] Address: [address] [place] [address] Performed By: #### 2 4356-8 ####[facility] [id number] [place] [address] [place] Specific gravity (U) [Rel density] 1.016 Normal 1.005-1.03 0 [facility] Comment on above: Order Comment: Speci men Type: URINE SPECIMENOrdering Facility: [facility] Address: [address] [place] [address] Performed By: #### 2 4356-8 ####[facility] [id number] [place] [address] [place] Urobilinogen Ql (U) 0.2 EU/dL Normal 0.2-1.0 EU/dL [facility] Comment on above: Order Comment: Speci men Type: URINE SPECIMENOrdering Facility: [facility] Address: [address] [place] [address] Performed By: #### 2 4356-8 ####[facility] [id number] [place] [address] [place] WBC LM.HPF (Urine sed) [#/Area] 0-5 /HPF Normal 0-5 /HPF [facility] Comment on above: Order Comment: Speci men Type: URINE SPECIMENOrdering Facility: [facility] Address: [address] [place] [address] Performed By: #### 2 4356-8 ####[facility] [id number] [place] [address] [place] Basic metabolic 2000 panelon 04-14-2024 Anion gap [Moles/Vol] 11 mmol/L Normal 8-15 [facility] Comment on above: Order Comment: Speci men Type: BLOOD SPECIMENOrdering Facility: [facility] Address: [address] [place] [address] Performed By: #### 2 4321-2 ####[facility] LABCLIA [id number] [place] [address] [place] Calcium [Mass/Vol] 8.5 mg/dL Normal 8.5-10.2 [facility] Comment on above: Order Comment: Speci men Type: BLOOD SPECIMENOrdering Facility: [facility] Address: [address] [place] [address] Performed By: #### 2 4321-2 ####[facility] LABCLIA [id number] [place] [address] [place] Chloride [Moles/Vol] 105 mmol/L Normal 98-107 [facility] Comment on above: Order Comment: Speci men Type: BLOOD SPECIMENOrdering Facility: [facility] Address: [address] [place] [address] Performed By: #### 2 4321-2 ####[facility] LABCLIA [id number] [place] [address] [place] CO2 [Moles/Vol] 21 mmol/L Low 22-30 [facility] Comment on above: Order Comment: Speci men Type: BLOOD SPECIMENOrdering Facility: [facility] Address: [address] [place] [address] Performed By: #### 2 4321-2 ####[facility] LABCLIA [id number] [place] [address] [place] Creatinine [Mass/Vol] 0.91 mg/dL Normal 0.73-1.22 [facility] Comment on above: Order Comment: Speci men Type: BLOOD SPECIMENOrdering Facility: [facility] Address: [address] [place] [address] Performed By: #### 2 4321-2 ####[facility] LABCLIA [id number] [place] [address] [place] Creatinine and Glomerular filtration rate.predicted panel (S/P/Bld) 92 mL/min/1.73m??? Normal >=60 [facility] Comment on above: Order Comment: Sara randle Type: BLOOD SPECIMENOrdering Facility: [facility] Address: [address] [place] [address] Result Comment: Carol mated Glomerular Filtration Rate [...] actual GFR. Performed By: #### 2 4321-2 ####[facility] LABIA [id number] [place] [address] [place] Glucose [Mass/Vol] 86 mg/dL Normal 74-99 [facility] Comment on above: Order Comment: Sara randle Type: BLOOD SPECIMENOrdering Facility: [facility] Address: [address] [place] [address] Result Comment: The [place] [employer] (ADA) provides guidance for cutoff [...] Standards of Medical Care in Diabetes 2016, [place] [employer]. Diabetes Care. 2016.39(Suppl 1). Performed By: #### 2 4321-2 ####[facility] LABCLIA [id number] [place] [address] [place] Potassium [Moles/Vol] 3.8 mmol/L Normal 3.7-5.1 [facility] Comment on above: Order Comment: Speci men Type: BLOOD SPECIMENOrdering Facility: [facility] Address: [address] [place] [address] Performed By: #### 2 4321-2 ####[facility] LABCLIA [id number] [place] [address] [place] Sodium [Moles/Vol] 137 mmol/L Normal 136-144 [facility] Comment on above: Order Comment: Speci men Type: BLOOD SPECIMENOrdering Facility: [facility] Address: [address] [place] [address] Performed By: #### 2 4321-2 ####[facility] LABCLIA [id number] [place] [address] [place] Urea nitrogen [Mass/Vol] 11 mg/dL Normal 9-24 [facility] Comment on above: Order Comment: Speci men Type: BLOOD SPECIMENOrdering Facility: [facility] Address: [address] [place] [address] Performed By: #### 2 4321-2 ####[facility] LABCLIA [id number] [place] [address] [place] CASE MANAGEMon 04-14-2024 CASE MANAGEM Normal [facility] CBC W Auto Differential pane l (Bld)on 04-14-2024 Basophils (Bld) [#/Vol] 0.00 10*3/uL Normal <0.11 [facility] Comment on above: Order Comment: Speci men Type: BLOOD SPECIMENOrdering Facility: [facility] Address: [address] [place] [address] Performed By: #### 5 7021-8 ####[facility] LABCLIA [id number] [place] [address] [place] Basophils/100 WBC (Bld) 0.0 % Normal [facility] Comment on above: Order Comment: Speci men Type: BLOOD SPECIMENOrdering Facility: [facility] Address: [address] [place] [address] Performed By: #### 5 7021-8 ####[facility] LABCLIA [id number] [place] [address] [place] Differential cell count method Nom (Bld) Manual Normal [facility] Comment on above: Order Comment: Speci men Type: BLOOD SPECIMENOrdering Facility: [facility] Address: [address] [place] [address] Performed By: #### 5 7021-8 ####[facility] LABCLIA [id number] [place] [address] [place] Eosinophils (Bld) [#/Vol] 0.19 10*3/uL Normal <0.46 [facility] Comment on above: Order Comment: Speci men Type: BLOOD SPECIMENOrdering Facility: [facility] Address: [address] [place] [address] Performed By: #### 5 7021-8 ####[facility] LABCLIA [id number] [place] [address] [place] Eosinophils/100 WBC (Bld) 23.0 % Normal [facility] Comment on above: Order Comment: Speci men Type: BLOOD SPECIMENOrdering Facility: [facility] Address: [address] [place] [address] Performed By: #### 5 7021-8 ####[facility] LABCLIA [id number] [place] [address] [place] Erythrocyte distribution width (RBC) [Ratio] 14.4 % Normal 11.5-15.0 [facility] Comment on above: Order Comment: Speci men Type: BLOOD SPECIMENOrdering Facility: [facility] Address: [address] [place] [address] Performed By: #### 5 7021-8 ####[facility] [facility] [id number] [place] [address] [place] Hematocrit (Bld) [Volume fraction] 30.7 % Low 39.0-51.0 [facility] Comment on above: Order Comment: Speci men Type: BLOOD SPECIMENOrdering Facility: [facility] Address: [address] [place] [address] Performed By: #### 5 7021-8 ####[facility] [id number] [place] [address] [place] Hemoglobin (Bld) [Mass/Vol] 10.4 g/dL Low 13.0-17.0 [facility] Comment on above: Order Comment: Speci men Type: BLOOD SPECIMENOrdering Facility: [facility] Address: [address] [place] [address] Performed By: #### 5 7021-8 ####[facility] [id number] [place] [address] [place] Lymphocytes (Bld) [#/Vol] 0.13 10*3/uL Low 1.00-4.00 [facility] Comment on above: Order Comment: Speci men Type: BLOOD SPECIMENOrdering Facility: [facility] Address: [address] [place] [address] Performed By: #### 5 7021-8 ####[facility] [id number] [place] [address] [place] Lymphocytes/100 WBC (Bld) 16.0 % Normal [facility] Comment on above: Order Comment: Speci men Type: BLOOD SPECIMENOrdering Facility: [facility] Address: [address] [place] [address] Performed By: #### 5 7021-8 ####[facility] [id number] [place] [address] [place] MCH (RBC) [Entitic mass] 30.4 pg Normal 26.0-34.0 [facility] Comment on above: Order Comment: Speci men Type: BLOOD SPECIMENOrdering Facility: [facility] Address: [address] [place] [address] Performed By: #### 5 7021-8 ####[facility]CLIA [id number] [place] [address] [place] MCHC (RBC) [Mass/Vol] 33.9 g/dL Normal 30.5-36.0 [facility] Comment on above: Order Comment: Speci men Type: BLOOD SPECIMENOrdering Facility: [facility] Address: [address] [place] [address] Performed By: #### 5 7021-8 ####[facility] [id number] [place] [address] [place] MCV (RBC) [Entitic vol] 89.8 fL Normal 80.0-100.0 [facility] Comment on above: Order Comment: Speci men Type: BLOOD SPECIMENOrdering Facility: [facility] Address: [address] [place] [address] Performed By: #### 5 7021-8 ####[facility] [id number] [place] [address] [place] Monocytes (Bld) [#/Vol] 0.16 10*3/uL Normal <0.87 [facility] Comment on above: Order Comment: Speci men Type: BLOOD SPECIMENOrdering Facility: [facility] Address: [address] [place] [address] Performed By: #### 5 7021-8 ####[facility] [id number] [place] [address] [place] Monocytes/100 WBC (Bld) 19.0 % Normal [facility] Comment on above: Order Comment: Speci men Type: BLOOD SPECIMENOrdering Facility: [facility] Address: [address] [place], [place] [address] Performed By: #### 5 7021-8 ####[facility]CLIA [id number] [place] [address] [place] Neutrophils (Bld) [#/Vol] 0.35 10*3/uL Low 1.45-7.50 [facility] Comment on above: Order Comment: Speci men Type: BLOOD SPECIMENOrdering Facility: [facility] Address: [address] [place] [address] Performed By: #### 5 7021-8 ####[facility] [id number] [place] [address] [place] Neutrophils/100 WBC (Bld) 42.0 % Normal [facility] Comment on above: Order Comment: Speci men Type: BLOOD SPECIMENOrdering Facility: [facility] Address: [address] [place] [address] Performed By: #### 5 7021-8 ####[facility] [id number] [place] [address] [place] Nucleated RBC (Bld) [#/Vol] 10*3/uL Normal <0.01 [facility] Comment on above: Order Comment: Speci men Type: BLOOD SPECIMENOrdering Facility: [facility] Address: [address] [place] [address] Performed By: #### 5 7021-8 ####[facility] [id number] [place] [address] [place] Nucleated RBC/100 WBC (Bld) [Ratio] 0.0 /100 WBC Normal [facility] Comment on above: Order Comment: Speci men Type: BLOOD SPECIMENOrdering Facility: [facility] Address: [address] [place] [address] Performed By: #### 5 7021-8 ####[facility] [id number] [id number] [address] [place] Ovalocytes LM Ql (Bld) Few Normal [facility] Comment on above: Order Comment: Speci men Type: BLOOD SPECIMENOrdering Facility: [facility] Address: [address] [place] [address] Performed By: #### 5 7021-8 ####[facility]CLIA [id number] [address] [address] [place] Platelet mean volume (Bld) [Entitic vol] 12.3 fL Normal 9.0-12.7 [facility] Comment on above: Order Comment: Speci men Type: BLOOD SPECIMENOrdering Facility: [facility] Address: [address] [place] [address] Performed By: #### 5 7021-8 ####[facility] [id number] [place] [address] [place] Platelets (Bld) [#/Vol] 39 10*3/uL Low 150-400 [facility] Comment on above: Order Comment: Speci men Type: BLOOD SPECIMENOrdering Facility: [facility] Address: [address] [place] [address] Performed By: #### 5 7021-8 ####[facility] [id number] [place] [address] [place] Platelets Estimate (Bld) [#/Vol] Decreased Normal [facility] Comment on above: Order Comment: Speci men Type: BLOOD SPECIMENOrdering Facility: [facility] Address: [address] [place] [address] Performed By: #### 5 7021-8 ####[facility] [id number] [place] [address] [place] Polychromasia LM Ql (Bld) Slight Normal [facility] Comment on above: Order Comment: Speci men Type: BLOOD SPECIMENOrdering Facility: [facility] Address: [address] [place] [address] Performed By: #### 5 7021-8 ####[facility] [id number] [place] [address] [place] RBC (Bld) [#/Vol] 3.42 10*6/uL Low 4.20-6.00 [facility] Comment on above: Order Comment: Speci men Type: BLOOD SPECIMENOrdering Facility: [facility] Address: [address] [place] [address] Performed By: #### 5 7021-8 ####[facility] [id number] [place] [address] [place] RBC FRAGMENTS Few Abnormal None Seen [facility] Comment on above: Order Comment: Speci men Type: BLOOD SPECIMENOrdering Facility: [facility] Address: [address] [place] [address] Performed By: #### 5 7021-8 ####[facility]CLIA [id number] [place] [address] [place] RED CELL MORPH Reviewed: see result s of individual morphologies Normal [facility] Comment on above: Order Comment: Speci men Type: BLOOD SPECIMENOrdering Facility: [facility] Address: [address] [place] [address] Performed By: #### 5 7021-8 ####[facility]CL[facility] [id number] [place] [address] [place] Toxic granules LM Ql (Bld) Present Normal [facility] Comment on above: Order Comment: Speci men Type: BLOOD SPECIMENOrdering Facility: [facility] Address: [address] [place] [address] Performed By: #### 5 7021-8 ####[facility]CL[facility] [id number] [place] [address] [place] WBC (Bld) [#/Vol] 0.84 10*3/uL Low 3.70-11.00 [facility] Comment on above: Order Comment: Speci men Type: BLOOD SPECIMENOrdering Facility: [facility] Address: [address] [place] [address] Result Comment: No c lot detected. Performed By: #### 5 7021-8 ####[facility] [id number] [place] [address] [place] Basophils (Bld) [#/Vol] 0.01 10*3/uL Normal <0.11 [facility] Comment on above: Order Comment: Speci men Type: BLOOD SPECIMENOrdering Facility: [facility] Address: [address] [place] [address] Performed By: #### 5 7021-8 ####[facility]CL[facility] [id number] [place] [address] [place] Basophils/100 WBC (Bld) 1.8 % Normal [facility] Comment on above: Order Comment: Speci men Type: BLOOD SPECIMENOrdering Facility: [facility] Address: [address] [place] [address] Performed By: #### 5 7021-8 ####[facility]CL[facility] [id number] [place] [address] [place] Differential cell count method Nom (Bld) Manual Normal [facility] Comment on above: Order Comment: Speci men Type: BLOOD SPECIMENOrdering Facility: [facility] Address: [address] [place] [address] Performed By: #### 5 7021-8 ####[facility]CL[facility] [id number] [place] [address] [place] Eosinophils (Bld) [#/Vol] 0.18 10*3/uL Normal <0.46 [facility] Comment on above: Order Comment: Speci men Type: BLOOD SPECIMENOrdering Facility: [facility] Address: [address] [place] [address] Performed By: #### 5 7021-8 ####[facility]CLIA [id number] [place] [address] [place] Eosinophils/100 WBC (Bld) 33.9 % Normal [facility] Comment on above: Order Comment: Speci men Type: BLOOD SPECIMENOrdering Facility: [facility] Address: [address] [place] [address] Performed By: #### 5 7021-8 ####[facility]CL[facility] [id number] [place] [address] [place] Erythrocyte distribution width (RBC) [Ratio] 14.3 % Normal 11.5-15.0 [facility] Comment on above: Order Comment: Speci men Type: BLOOD SPECIMENOrdering Facility: [facility] Address: [address] [place] [address] Performed By: #### 5 7021-8 ####[facility]CLIA [id number] [place] [address] [place] Hematocrit (Bld) [Volume fraction] 31.4 % Low 39.0-51.0 [facility] Comment on above: Order Comment: Speci men Type: BLOOD SPECIMENOrdering Facility: [facility] Address: [address] [place] [address] Performed By: #### 5 7021-8 ####[facility]CL[facility] [id number] [place] [address] [place] Hemoglobin (Bld) [Mass/Vol] 10.7 g/dL Low 13.0-17.0 [facility] Comment on above: Order Comment: Speci men Type: BLOOD SPECIMENOrdering Facility: [facility] Address: [address] [place] [address] Performed By: #### 5 7021-8 ####[facility]CLIA [id number] [place] [address] [place] Lymphocytes (Bld) [#/Vol] 0.09 10*3/uL Low 1.00-4.00 [facility] Comment on above: Order Comment: Speci men Type: BLOOD SPECIMENOrdering Facility: [facility] Address: [address] [place] [address] Performed By: #### 5 7021-8 ####[facility] [id number] [place] [address] [place] Lymphocytes/100 WBC (Bld) 16.1 % Normal [facility] Comment on above: Order Comment: Speci men Type: BLOOD SPECIMENOrdering Facility: [facility] Address: [address] [place] [address] Performed By: #### 5 7021-8 ####[facility] [id number] [place] [address] [place] MCH (RBC) [Entitic mass] 30.4 pg Normal 26.0-34.0 [facility] Comment on above: Order Comment: Speci men Type: BLOOD SPECIMENOrdering Facility: [facility] Address: [address] [place] [address] Performed By: #### 5 7021-8 ####[facility] [id number] [place] [address] [place] MCHC (RBC) [Mass/Vol] 34.1 g/dL Normal 30.5-36.0 [facility] Comment on above: Order Comment: Speci men Type: BLOOD SPECIMENOrdering Facility: [facility] Address: [address] [place] [address] Performed By: #### 5 7021-8 ####[facility] [id number] [place] [address] [place] MCV (RBC) [Entitic vol] 89.2 fL Normal 80.0-100.0 [facility] Comment on above: Order Comment: Speci men Type: BLOOD SPECIMENOrdering Facility: [facility] Address: [address] [place] [address] Performed By: #### 5 7021-8 ####[facility]CLIA [id number] [place] [address] [place] Monocytes (Bld) [#/Vol] 0.12 10*3/uL Normal <0.87 [facility] Comment on above: Order Comment: Speci men Type: BLOOD SPECIMENOrdering Facility: [facility] Address: [address] [place] [address] Performed By: #### 5 7021-8 ####[facility]CLIA [id number] [place] [address] [place] Monocytes/100 WBC (Bld) 22.3 % Normal [facility] Comment on above: Order Comment: Speci men Type: BLOOD SPECIMENOrdering Facility: [facility] Address: [address] [place] [address] Performed By: #### 5 7021-8 ####[facility]CLIA [id number] [place] [address] [place] Neutrophils (Bld) [#/Vol] 0.14 10*3/uL Low 1.45-7.50 [facility] Comment on above: Order Comment: Speci men Type: BLOOD SPECIMENOrdering Facility: [facility] Address: [address] [place] [address] Performed By: #### 5 7021-8 ####[facility]CLIA [id number] [place] [address] [place] Neutrophils/100 WBC (Bld) 25.9 % Normal [facility] Comment on above: Order Comment: Speci men Type: BLOOD SPECIMENOrdering Facility: [facility] Address: [address] [place] [address] Performed By: #### 5 7021-8 ####[facility]CLIA [id number] [place] [address] [place] Nucleated RBC (Bld) [#/Vol] 10*3/uL Normal <0.01 [facility] Comment on above: Order Comment: Speci men Type: BLOOD SPECIMENOrdering Facility: [facility] Address: [address] [place] [address] Performed By: #### 5 7021-8 ####[facility]CLIA [id number] [place] [address] [place] Nucleated RBC/100 WBC (Bld) [Ratio] 0.9 /100 WBC Normal [facility] Comment on above: Order Comment: Speci men Type: BLOOD SPECIMENOrdering Facility: [facility] Address: [address] [place] [address] Performed By: #### 5 7021-8 ####[facility]CL[facility] [id number] [place] [address] [place] Ovalocytes LM Ql (Bld) Few Normal [facility] Comment on above: Order Comment: Speci men Type: BLOOD SPECIMENOrdering Facility: [facility] Address: [address] [place] [address] Performed By: #### 5 7021-8 ####[facility]CLIA [id number] [place] [address] [place] Platelet mean volume (Bld) [Entitic vol] 10.7 fL Normal 9.0-12.7 [facility] Comment on above: Order Comment: Speci men Type: BLOOD SPECIMENOrdering Facility: [facility] Address: [address] [place] [address] Performed By: #### 5 7021-8 ####[facility]CLIA [id number] [place] [address] [place] Platelets (Bld) [#/Vol] 41 10*3/uL Low 150-400 [facility] Comment on above: Order Comment: Speci men Type: BLOOD SPECIMENOrdering Facility: [facility] Address: [address] [place] [address] Result Comment: Resu lts checked and verified.No clot detected. Performed By: #### 5 7021-8 ####[facility]CLIA [id number] [place] [address] [place] Platelets Estimate (Bld) [#/Vol] Decreased Normal [facility] Comment on above: Order Comment: Speci men Type: BLOOD SPECIMENOrdering Facility: [facility] Address: [address] [place] [address] Performed By: #### 5 7021-8 ####[facility]CLIA [id number] [place] [address] [place] Polychromasia LM Ql (Bld) Slight Normal [facility] Comment on above: Order Comment: Speci men Type: BLOOD SPECIMENOrdering Facility: [facility] Address: [address] [place] [address] Performed By: #### 5 7021-8 ####[facility]CLIA [id number] [place] [address] [place] RBC (Bld) [#/Vol] 3.52 10*6/uL Low 4.20-6.00 [facility] Comment on above: Order Comment: Speci men Type: BLOOD SPECIMENOrdering Facility: [facility] Address: [address] [place] [address] Performed By: #### 5 7021-8 ####[facility]CLIA [id number] [place] [address] [place] RBC FRAGMENTS Few Abnormal None Seen [facility] Comment on above: Order Comment: Speci men Type: BLOOD SPECIMENOrdering Facility: [facility] Address: [address] [place] [address] Performed By: #### 5 7021-8 ####[facility]CLIA [id number] [place] [address] [place] RED CELL MORPH Reviewed: see result s of individual morphologies Normal [facility] Comment on above: Order Comment: Speci men Type: BLOOD SPECIMENOrdering Facility: [facility] Address: [address] [place] [address] Performed By: #### 5 7021-8 ####[facility]CLIA [id number] [place] [id number] [place] WBC (Bld) [#/Vol] 0.53 10*3/uL Low 3.70-11.00 [facility] Comment on above: Order Comment: Speci men Type: BLOOD SPECIMENOrdering Facility: [facility] Address: [address] [place] [address] Result Comment: Resu lts checked and verified.No clot detected. Performed By: #### 5 7021-8 ####[facility]CLIA [id number] [place] [address] [place] CNDSon 04-14-2024 CNDS Normal [facility] CNPNon 04-14-2024 CNPN Normal [facility] CRP SerPl-mCncon 04-14-2024 CRP [Mass/Vol] 1.2 mg/dL High <0.9 [facility] Comment on above: Order Comment: Speci men Type: BLOOD SPECIMENOrdering Facility: [facility] Address: [address] [place] [address] Performed By: #### H STNT, 1988-5, 54335-1, 3084-1, 2777-1, 2276-4 ####[facility]CLIA [id number] [place] [address] [place] CT BRAIN WO IVCONon 04-14-20 CT BRAIN WO IVCON Normal [facility] Comprehensive metabolic 2000 panelon 04-14-2024 Albumin [Mass/Vol] 3.2 g/dL Low 3.9-4.9 [facility] Comment on above: Order Comment: Speci men Type: BLOOD SPECIMENOrdering Facility: [facility] Address: [address] [place] [address] Performed By: #### 2 432-8, 2531-0 ####[facility]CLIA [id number] [place] [address] [place] ALP [Catalytic activity/Vol] 107 U/L Normal 38-113 [facility] Comment on above: Order Comment: Speci men Type: BLOOD SPECIMENOrdering Facility: [facility] Address: [address] [place] [address] Performed By: #### 2 432-8, 2531-0 ####[facility]CLIA [id number] [place] [address] [place] ALT [Catalytic activity/Vol] 31 U/L Normal 10-54 [facility] Comment on above: Order Comment: Speci men Type: BLOOD SPECIMENOrdering Facility: [facility] Address: [address] [place] [address] Performed By: #### 2 4328, 2531-0 ####[facility]CLIA [id number] [place] [address] [place] Anion gap [Moles/Vol] 12 mmol/L Normal 8-15 [facility] Comment on above: Order Comment: Speci men Type: BLOOD SPECIMENOrdering Facility: [facility] Address: [address] [place] [address] Performed By: #### 2 432-8, 2531-0 ####[facility]CLIA [id number] [place] [address] [place] AST [Catalytic activity/Vol] 28 U/L Normal 14-40 [facility] Comment on above: Order Comment: Speci men Type: BLOOD SPECIMENOrdering Facility: [facility] Address: [address] [place] [address] Performed By: #### 2 4323-8, 2532-0 ####[facility] LABCLIA [id number] [place] [id number] [place] Bilirubin [Mass/Vol] 0.4 mg/dL Normal 0.2-1.3 [facility] Comment on above: Order Comment: Speci men Type: BLOOD SPECIMENOrdering Facility: [facility] Address: [address] [place] [address] Performed By: #### 2 4323-8, 2531-0 ####[facility] LABCLIA [id number] [place] [address] [place] Calcium [Mass/Vol] 8.0 mg/dL Low 8.5-10.2 [facility] Comment on above: Order Comment: Speci men Type: BLOOD SPECIMENOrdering Facility: [facility] Address: [address] [place] [address] Performed By: #### 2 4323-8, 2531-0 ####[facility]CLIA [id number] [place] [address] [place] Chloride [Moles/Vol] 106 mmol/L Normal 98-107 [facility] Comment on above: Order Comment: Speci men Type: BLOOD SPECIMENOrdering Facility: [facility] Address: [address] [place] [address] Performed By: #### 2 432-8, 2531-0 ####[facility]CLIA [id number] [place] [address] [place] CO2 [Moles/Vol] 20 mmol/L Low 22-30 [facility] Comment on above: Order Comment: Speci men Type: BLOOD SPECIMENOrdering Facility: [facility] Address: [address] [place] [address] Performed By: #### 2 4323-8, 2531-0 ####[facility]CLIA [id number] [place] [address] [place] Creatinine [Mass/Vol] 1.04 mg/dL Normal 0.73-1.22 [facility] Comment on above: Order Comment: Speci men Type: BLOOD SPECIMENOrdering Facility: [facility] Address: [address] [place] [address] Performed By: #### 2 4323-8, 2532-0 ####[facility]IA [id number] [place] [address] [place] Creatinine and Glomerular filtration rate.predicted panel (S/P/Bld) 79 mL/min/1.73m??? Normal >=60 [facility] Comment on above: Order Comment: Speci men Type: BLOOD SPECIMENOrdering Facility: [facility] Address: [address] [place] [address] Result Comment: Carol mated Glomerular Filtration Rate [...] GFR. Performed By: #### 2 4323-8, 2532-0 ####[facility] LABIA [id number] [place] [id number] [place] Glucose [Mass/Vol] 80 mg/dL Normal 74-99 [facility] Comment on above: Order Comment: Sara razia Type: BLOOD SPECIMENOrdering Facility: [facility] Address: [address] [place] [address] Result Comment: The [place] [employer] (ADA) provides guidance for cutoff [...] Standards of Medical Care in Diabetes 2016, [place] [employer]. Diabetes Care. 2016.39(Suppl 1). Performed By: #### 2 4328, 0 ####[facility] LABCLIA [id number] [address] [address] [place] Potassium [Moles/Vol] 4.0 mmol/L Normal 3.7-5.1 [facility] Comment on above: Order Comment: Speci men Type: BLOOD SPECIMENOrdering Facility: [facility] Address: [address] [place] [address] Performed By: #### 2 4328, 0 ####[facility] LABCLIA [id number] [place] [address] [place] Protein [Mass/Vol] 5.2 g/dL Low 6.3-8.0 [facility] Comment on above: Order Comment: Speci men Type: BLOOD SPECIMENOrdering Facility: [facility] Address: [address] [place] [address] Performed By: #### 2 43201-08, 0 ####[facility] LABCLIA [id number] [place] [address] [place] Sodium [Moles/Vol] 138 mmol/L Normal 136-144 [facility] Comment on above: Order Comment: Speci men Type: BLOOD SPECIMENOrdering Facility: [facility] Address: [address] [place] [address] Performed By: #### 2 43201-08, 0 ####[facility] LABCLIA [id number] [address] [address] [place] Urea nitrogen [Mass/Vol] 9 mg/dL Normal 9-24 [facility] Comment on above: Order Comment: Speci men Type: BLOOD SPECIMENOrdering Facility: [facility] Address: [address] [place], [place] [address] Performed By: #### 2 4328, 2531-0 ####[facility] LABCLIA [id number] [address] [address] [place] ECG COMPLETEon 04-14-2024 ECG COMPLETE Normal [facility] ED NOTEon 04-14-2024 ED NOTE HNO ID: [id number] Author: SEPIDEH GARBER RN Service: ? Author Type: Registered Nurse Type: ED Notes Filed: 04/14/2024 19:07 Note Text: Bed: E12-14 Expected date: Expected time: Means of arrival: Comments: Kaushik Normal [facility] ED PROV NOTEon 04-14-2024 ED PROV NOTE Normal [facility] ED Triage Noteon 04-14-2024 ED Triage Note Normal [facility] Ferritin SerPl-mCncon 2023 Ferritin [Mass/Vol] 546.0 ng/mL Normal 30.3-565.7 [facility] Comment on above: Order Comment: Speci men Type: BLOOD SPECIMENOrdering Facility: [facility] Address: [address] [place] [address] Performed By: #### H STNT, 1988-[birth year], , 3083-1, 2776-1, 2275-4 ####[facility] LABCLIA [id number] [place] [address] [place] HIGH SENSITIVITY TROPONIN To n 04-14-2024 Troponin T.cardiac High sensitivity method [Mass/Vol] 11 ng/L Normal <12 [facility] Comment on above: Order Comment: Sara randle Type: BLOOD SPECIMENOrdering Facility: [facility] Address: [address] [place] [address] Result Comment: When assessing risk for acute [...] for 30 day MACE. Performed By: #### H STNT, 1988-03, , 3083-1, 2777-1, 2275-4 ####[facility] LABCLIA [id number] [place] [address] [place] LDH SerPl-cCncon 04-14-2024 LDH [Catalytic activity/Vol] 227 U/L High 135-225 [facility] Comment on above: Order Comment: Speci men Type: BLOOD SPECIMENOrdering Facility: [facility] Address: [address] [place] [address] Result Comment: Hemo lysis present. The origin [...] indicated. Performed By: #### 2 4323-8, 2532-0 ####[facility] [id number] [place] [address] [place] Magnesium SerPl-mCncon 04-14 Magnesium [Mass/Vol] 2.1 mg/dL Normal 1.7-2.3 [facility] Comment on above: Order Comment: Speci men Type: BLOOD SPECIMENOrdering Facility: [facility] Address: [address] [place] [address] Performed By: #### H STNT, 1988-03, , 3084-1, 2777-1, 2276-4 ####[facility] [id number] [place] [address] [place] NURSING PROGon 04-14-2024 NURSING PROG Normal [facility] NURSING PROG Normal [facility] Phosphate SerPl-mCncon 04-14 Phosphate [Mass/Vol] 2.9 mg/dL Normal 2.7-4.8 [facility] Comment on above: Order Comment: Speci men Type: BLOOD SPECIMENOrdering Facility: [facility] Address: [address] [place] [address] Performed By: #### H STNT, 1988-5, 63846-4, 3084-1, 2777-1, 2276-4 ####[facility] LABCLIA [id number] [place] [id number] [place] SOCIAL WORKon 04-14-2024 SOCIAL WORK Normal [facility] TYPE + SCREENon 04-14-2024 ABO B Normal [facility] Comment on above: Order Comment: Speci men Type: BLOOD SPECIMENOrdering Facility: [facility] Address: [address] [place] [address] Performed By: #### T SCR ####[facility] BLOOD BANKCLIA [id number] [place] [address] [place] HISTORICAL AB SCR STATUS Negative Normal [facility] Comment on above: Order Comment: Speci men Type: BLOOD SPECIMENOrdering Facility: [facility] Address: [address] [place] [address] Performed By: #### T SCR ####[facility] BLOOD BANKCLIA [id number] [place] [address] [place] Rh Nom (Bld) Negative Normal [facility] Comment on above: Order Comment: Speci men Type: BLOOD SPECIMENOrdering Facility: [facility] Address: [address] [place] [address] Performed By: #### T SCR ####[facility] BLOOD BANKCLIA [id number] [place] [address] [place] TYPE AND SCREEN EXPIRATION 04/17/2024 23:59 Normal [facility] Comment on above: Order Comment: Speci men Type: BLOOD SPECIMENOrdering Facility: [facility] Address: [address] [place] [address] Performed By: #### T SCR ####[facility] BLOOD BANKCLIA [id number] [place] [id number] [place] Urate SerPl-mCncon Urate [Mass/Vol] 3.1 mg/dL Low 4.0-8.1 [facility] Comment on above: Order Comment: Speci men Type: BLOOD SPECIMENOrdering Facility: [facility] Address: [address] [place] [address] Performed By: #### H STNT, 1988-5, 18386-1, 3084-1, 2777-1, 2276-4 ####[facility] LABCLIA [id number] [place] [address] [place] CBC W Auto Differential pane l (Bld)on 04-13-2024 Basophils (Bld) [#/Vol] Normal [facility] Comment on above: Order Comment: Speci men Type: BLOOD SPECIMENOrdering Facility: [facility] Address: [address] [place] [address] Result Comment: Too Few Cells To Do Differential. Performed By: #### 5 7021-8 ####[facility] LABCLIA [id number] [place] [address] [place] Basophils/100 WBC (Bld) Normal [facility] Comment on above: Order Comment: Speci men Type: BLOOD SPECIMENOrdering Facility: [facility] Address: [address] [place] [address] Result Comment: Too Few Cells To Do Differential. Performed By: #### 5 7021-8 ####[facility] LABCLIA [id number] [place] [address] [place] Differential cell count method Nom (Bld) Auto Normal [facility] Comment on above: Order Comment: Speci men Type: BLOOD SPECIMENOrdering Facility: [facility] Address: [address] [place] [address] Performed By: #### 5 7021-8 ####[facility] LABCLIA [id number] [place] [address] [place] Eosinophils (Bld) [#/Vol] Normal [facility] Comment on above: Order Comment: Speci men Type: BLOOD SPECIMENOrdering Facility: [facility] Address: [address] [place] [address] Result Comment: Too Few Cells To Do Differential. Performed By: #### 5 7021-8 ####[facility] LABCLIA [id number] [place] [address] [place] Eosinophils/100 WBC (Bld) Normal [facility] Comment on above: Order Comment: Speci men Type: BLOOD SPECIMENOrdering Facility: [facility] Address: [address] [place] [address] Result Comment: Too Few Cells To Do Differential. Performed By: #### 5 7021-8 ####[facility] LABIA [id number] [place] [address] [place] Erythrocyte distribution width (RBC) [Ratio] 14.3 % Normal 11.5-15.0 [facility] Comment on above: Order Comment: Speci men Type: BLOOD SPECIMENOrdering Facility: [facility] Address: [address] [place] [address] Performed By: #### 5 7021-8 ####[facility] LABIA [id number] [place] [address] [place] Hematocrit (Bld) [Volume fraction] 29.4 % Low 39.0-51.0 [facility] Comment on above: Order Comment: Speci men Type: BLOOD SPECIMENOrdering Facility: [facility] Address: [address] [place] [address] Performed By: #### 5 7021-8 ####[facility] LABIA [id number] [place] [address] [place] Hemoglobin (Bld) [Mass/Vol] 10.1 g/dL Low 13.0-17.0 [facility] Comment on above: Order Comment: Speci men Type: BLOOD SPECIMENOrdering Facility: [facility] Address: [address] [place] [address] Performed By: #### 5 7021-8 ####[facility] LABCLIA [id number] [place] [address] [place] Immature granulocytes (Bld) [#/Vol] Normal [facility] Comment on above: Order Comment: Speci men Type: BLOOD SPECIMENOrdering Facility: [facility] Address: [address] [place] [address] Result Comment: Too Few Cells To Do Differential. Performed By: #### 5 7021-8 ####[facility] LABCLIA [id number] [place] [address] [place] Immature granulocytes/100 WBC (Bld) Normal [facility] Comment on above: Order Comment: Speci men Type: BLOOD SPECIMENOrdering Facility: [facility] Address: [address] [place] [address] Result Comment: Too Few Cells To Do Differential. Performed By: #### 5 7021-8 ####[facility] LABCLIA [id number] [place] [address] [place] Lymphocytes (Bld) [#/Vol] Normal [facility] Comment on above: Order Comment: Speci men Type: BLOOD SPECIMENOrdering Facility: [facility] Address: [address] [place] [address] Result Comment: Too Few Cells To Do Differential. Performed By: #### 5 7021-8 ####[facility] LABCLIA [id number] [place] [address] [place] Lymphocytes/100 WBC (Bld) Normal [facility] Comment on above: Order Comment: Speci men Type: BLOOD SPECIMENOrdering Facility: [facility] Address: [address] [place] [address] Result Comment: Too Few Cells To Do Differential. Performed By: #### 5 7021-8 ####[facility] LABCLIA [id number] [place] [address] [place] MCH (RBC) [Entitic mass] 30.7 pg Normal 26.0-34.0 [facility] Comment on above: Order Comment: Speci men Type: BLOOD SPECIMENOrdering Facility: [facility] Address: [address] [place] [address] Performed By: #### 5 7021-8 ####[facility] LABCLIA [id number] [place] [address] [place] MCHC (RBC) [Mass/Vol] 34.4 g/dL Normal 30.5-36.0 [facility] Comment on above: Order Comment: Speci men Type: BLOOD SPECIMENOrdering Facility: [facility] Address: [address] [place] [address] Performed By: #### 5 7021-8 ####[facility] LABIA [id number] [place] [address] [place] MCV (RBC) [Entitic vol] 89.4 fL Normal 80.0-100.0 [facility] Comment on above: Order Comment: Speci men Type: BLOOD SPECIMENOrdering Facility: [facility] Address: [address] [place] [address] Performed By: #### 5 7021-8 ####[facility] LABIA [id number] [place] [address] [place] Monocytes (Bld) [#/Vol] Normal [facility] Comment on above: Order Comment: Speci men Type: BLOOD SPECIMENOrdering Facility: [facility] Address: [address] [place] [address] Result Comment: Too Few Cells To Do Differential. Performed By: #### 5 7021-8 ####[facility] LABIA [id number] [place] [address] [place] Monocytes/100 WBC (Bld) Normal [facility] Comment on above: Order Comment: Speci men Type: BLOOD SPECIMENOrdering Facility: [facility] Address: [address] [place] [address] Result Comment: Too Few Cells To Do Differential. Performed By: #### 5 7021-8 ####[facility] LABCLIA [id number] [place] [address] [place] Neutrophils (Bld) [#/Vol] Normal [facility] Comment on above: Order Comment: Speci men Type: BLOOD SPECIMENOrdering Facility: [facility] Address: [address] [place] [address] Result Comment: Too Few Cells To Do Differential. Performed By: #### 5 7021-8 ####[facility] LABCLIA [id number] [place] [address] [place] Neutrophils/100 WBC (Bld) Normal [facility] Comment on above: Order Comment: Speci men Type: BLOOD SPECIMENOrdering Facility: [facility] Address: [address] [place] [address] Result Comment: Too Few Cells To Do Differential. Performed By: #### 5 7021-8 ####[facility] LABCLIA [id number] [place] [address] [place] Nucleated RBC (Bld) [#/Vol] 10*3/uL Normal <0.01 [facility] Comment on above: Order Comment: Speci men Type: BLOOD SPECIMENOrdering Facility: [facility] Address: [address] [place] [address] Performed By: #### 5 7021-8 ####[facility] LABCLIA [id number] [place] [address] [place] Nucleated RBC/100 WBC (Bld) [Ratio] 0.0 /100 WBC Normal [facility] Comment on above: Order Comment: Speci men Type: BLOOD SPECIMENOrdering Facility: [facility] Address: [address] [place] [address] Performed By: #### 5 7021-8 ####[facility] LABCLIA [id number] [place] [address] [place] Platelet mean volume (Bld) [Entitic vol] 11.6 fL Normal 9.0-12.7 [facility] Comment on above: Order Comment: Speci men Type: BLOOD SPECIMENOrdering Facility: [facility] Address: [address] [place] [address] Performed By: #### 5 7021-8 ####[facility] LABCLIA [id number] [place] [address] [place] Platelets (Bld) [#/Vol] 32 10*3/uL Low 150-400 [facility] Comment on above: Order Comment: Speci men Type: BLOOD SPECIMENOrdering Facility: [facility] Address: [address] [place] [address] Result Comment: No c lot detected.Checked and Verified\X09\ Performed By: #### 5 7021-8 ####[facility] LABCLIA [id number] [place] [address] [place] RBC (Bld) [#/Vol] 3.29 10*6/uL Low 4.20-6.00 [facility] Comment on above: Order Comment: Speci men Type: BLOOD SPECIMENOrdering Facility: [facility] Address: [address] [place] [address] Performed By: #### 5 7021-8 ####[facility] LABCLIA [id number] [place] [address] [place] WBC (Bld) [#/Vol] 0.30 10*3/uL Low 3.70-11.00 [facility] Comment on above: Order Comment: Speci men Type: BLOOD SPECIMENOrdering Facility: [facility] Address: [address] [place] [address] Result Comment: Too Few Cells To Do DifferentialNo clot detected. Performed By: #### 5 7021-8 ####[facility] LABCLIA [id number] [place] [address] [place] CRP SerPl-mCncon 04-13-2024 CRP [Mass/Vol] 1.7 mg/dL High <0.9 [facility] Comment on above: Order Comment: Speci men Type: BLOOD SPECIMENOrdering Facility: [facility] Address: [address] [place] [address] Performed By: #### 1 988-5, 65203-7, 3084-1, 2777-1, 2276-4 ####[facility] LABCLIA [id number] [address] STATES OF [facility] Comprehensive metabolic 2000 panelon 04-13-2024 Albumin [Mass/Vol] 3.1 g/dL Low 3.9-4.9 [facility] Comment on above: Order Comment: Speci men Type: BLOOD SPECIMENOrdering Facility: [facility] Address: [address] [place] [address] Performed By: #### 2 4323-8, 2532-0 ####[facility] LABCLIA [id number] [place] [address] [place] ALP [Catalytic activity/Vol] 118 U/L High 38-113 [facility] Comment on above: Order Comment: Speci men Type: BLOOD SPECIMENOrdering Facility: [facility] Address: [address] [place] [address] Performed By: #### 2 4323-8, 2532-0 ####[facility] LABCLIA [id number] [place] [address] [place] ALT [Catalytic activity/Vol] 22 U/L Normal 10-54 [facility] Comment on above: Order Comment: Speci men Type: BLOOD SPECIMENOrdering Facility: [facility] Address: [address] [place] [address] Performed By: #### 2 4323-8, 2532-0 ####[facility] LABCLIA [id number] [place] [id number] [place] Anion gap [Moles/Vol] 9 mmol/L Normal 8-15 [facility] Comment on above: Order Comment: Speci men Type: BLOOD SPECIMENOrdering Facility: [facility] Address: [address] [place] [address] Performed By: #### 2 4323-8, 2531-0 ####[facility] LABCLIA [id number] [place] [address] [place] AST [Catalytic activity/Vol] 16 U/L Normal 14-40 [facility] Comment on above: Order Comment: Speci men Type: BLOOD SPECIMENOrdering Facility: [facility] Address: [address] [place] [address] Performed By: #### 2 4323-8, 0 ####[facility] LABCLIA [id number] [place] [address] [place] Bilirubin [Mass/Vol] 0.3 mg/dL Normal 0.2-1.3 [facility] Comment on above: Order Comment: Speci men Type: BLOOD SPECIMENOrdering Facility: [facility] Address: [address] [place] [address] Performed By: #### 2 4323-8, 0 ####[facility] LABCLIA [id number] [place] [address] [place] Calcium [Mass/Vol] 7.8 mg/dL Low 8.5-10.2 [facility] Comment on above: Order Comment: Speci men Type: BLOOD SPECIMENOrdering Facility: [facility] Address: [address] [place] [address] Performed By: #### 2 4323-8, 2531-0 ####[facility] LABCLIA [id number] [place] [address] [place] Chloride [Moles/Vol] 106 mmol/L Normal 98-107 [facility] Comment on above: Order Comment: Speci men Type: BLOOD SPECIMENOrdering Facility: [facility] Address: [address] [place], [place] [address] Performed By: #### 2 4323-8, 2532-0 ####[facility] LABCLIA [id number] [place] [id number] [place] CO2 [Moles/Vol] 23 mmol/L Normal 22-30 [facility] Comment on above: Order Comment: Speci men Type: BLOOD SPECIMENOrdering Facility: [facility] Address: [address] [place] [address] Performed By: #### 2 4323-8, 2532-0 ####[facility] LABIA [id number] [place] [address] [place] Creatinine [Mass/Vol] 1.20 mg/dL Normal 0.73-1.22 [facility] Comment on above: Order Comment: Speci men Type: BLOOD SPECIMENOrdering Facility: [facility] Address: [address] [place] [address] Performed By: #### 2 4323-8, 2531-0 ####[facility] LABIA [id number] [place] [address] [place] Creatinine and Glomerular filtration rate.predicted panel (S/P/Bld) 66 mL/min/1.73m??? Normal >=60 [facility] Comment on above: Order Comment: Speci men Type: BLOOD SPECIMENOrdering Facility: [facility] Address: [address] [place] [address] Result Comment: Carol mated Glomerular Filtration Rate [...] GFR. Performed By: #### 2 4323-8, 2532-0 ####[facility] LABIA [id number] [place] [address] [place] Glucose [Mass/Vol] 104 mg/dL High 74-99 [facility] Comment on above: Order Comment: Speci men Type: BLOOD SPECIMENOrdering Facility: [facility] Address: [address] [place] [address] Result Comment: The [place] [employer] (ADA) provides guidance for cutoff [...] Standards of Medical Care in Diabetes 2016, [place] [employer]. Diabetes Care. 2016.39(Suppl 1). Performed By: #### 2 4323-8, ####[facility] LABCLIA [id number] [place] [address] [place] Potassium [Moles/Vol] 3.6 mmol/L Low 3.7-5.1 [facility] Comment on above: Order Comment: Dottyi men Type: BLOOD SPECIMENOrdering Facility: [facility] Address: [address] [place] [address] Performed By: #### 2 43238, ####[facility] LABCLIA [id number] [place] [address] [place] Protein [Mass/Vol] 5.0 g/dL Low 6.3-8.0 [facility] Comment on above: Order Comment: Speci men Type: BLOOD SPECIMENOrdering Facility: [facility] Address: [address] [place] [address] Performed By: #### 2 4323-8, 0 ####[facility] LABCLIA [id number] [place] [address] [place] Sodium [Moles/Vol] 138 mmol/L Normal 136-144 [facility] Comment on above: Order Comment: Speci men Type: BLOOD SPECIMENOrdering Facility: [facility] Address: [address] [place] [address] Performed By: #### 2 4323-8, 2532-0 ####[facility] LABCLIA [id number] [place] [address] [place] Urea nitrogen [Mass/Vol] 8 mg/dL Low 9-24 [facility] Comment on above: Order Comment: Speci men Type: BLOOD SPECIMENOrdering Facility: [facility] Address: [address] [place] [address] Performed By: #### 2 4323-8, 2532-0 ####[facility] LABCLIA [id number] [place] [address] [place] Ferritin SerPl-mCncon 2023 Ferritin [Mass/Vol] 556.0 ng/mL Normal 30.3-565.7 [facility] Comment on above: Order Comment: Speci men Type: BLOOD SPECIMENOrdering Facility: [facility] Address: [address] [place] [address] Performed By: #### 1 988-5, 05948-3, 3084-1, 2777-1, 2276-4 ####[facility] LABCLIA [id number] [place] [address] [place] LDH SerPl-cCncon 04-13-2024 LDH [Catalytic activity/Vol] 167 U/L Normal 135-225 [facility] Comment on above: Order Comment: Speci men Type: BLOOD SPECIMENOrdering Facility: [facility] Address: [address] [place] [address] Performed By: #### 2 4323-8, 2532-0 ####[facility] LABCLIA [id number] [place] [address] [place] Magnesium SerPl-mCncon 04-13 Magnesium [Mass/Vol] 2.1 mg/dL Normal 1.7-2.3 [facility] Comment on above: Order Comment: Speci men Type: BLOOD SPECIMENOrdering Facility: [facility] Address: [address] [place], [place] [address] Performed By: #### 1 988-5, 60743-1, 3084-1, 2777-1, 6-4 ####[facility] LABCLIA [id number] [place] [id number] [place] NUTRITIONon 04-13-2024 NUTRITION Normal [facility] Phosphate SerPl-mCncon 04-13 Phosphate [Mass/Vol] 2.4 mg/dL Low 2.7-4.8 [facility] Comment on above: Order Comment: Speci men Type: BLOOD SPECIMENOrdering Facility: [facility] Address: [address] [place] [address] Performed By: #### 1 988-5, 23017-6, 3084-1, 7-1, 2275-4 ####[facility] LABCLIA [id number] [place] [id number] [place] Urate SerPl-mCncon Urate [Mass/Vol] 2.1 mg/dL Low 4.0-8.1 [facility] Comment on above: Order Comment: Speci men Type: BLOOD SPECIMENOrdering Facility: [facility] Address: [address] [place], [place] [address] Performed By: #### 1 988-5, 65450-1, 3084-1, 2777-1, 6-4 ####[facility] LABCLIA [id number] [place] [id number] [place] Bacteria Bld Culton 04-12-20 24 Bacteria identified Cx Nom (Bld) CULTURE, BLOOD: No growth 5 days Normal [facility] Comment on above: Performed By: #### 6 00-7 ####[facility] LABCLIA [id number] [place] [address] [place] Bacteria identified Cx Nom (Bld) CULTURE, BLOOD: No growth 5 days Normal [facility] Comment on above: Performed By: #### 6 00-7 ####[facility] LABCLIA [id number] [place] [address] [place] CBC W Auto Differential pane l (Bld)on 04-12-2024 Basophils (Bld) [#/Vol] Normal [facility] Comment on above: Order Comment: Speci men Type: BLOOD SPECIMENOrdering Facility: [facility] Address: [address] [place] [address] Result Comment: Too Few Cells To Do Differential. Performed By: #### 5 7021-8 ####[facility] LABCLIA [id number] [place] [address] [place] Basophils/100 WBC (Bld) Normal [facility] Comment on above: Order Comment: Speci men Type: BLOOD SPECIMENOrdering Facility: [facility] Address: [address] [place] [address] Result Comment: Too Few Cells To Do Differential. Performed By: #### 5 7021-8 ####[facility] LABCLIA [id number] [place] [address] [place] Differential cell count method Nom (Bld) Auto Normal [facility] Comment on above: Order Comment: Speci men Type: BLOOD SPECIMENOrdering Facility: [facility] Address: [address] [place] [address] Performed By: #### 5 7021-8 ####[facility] LABCLIA [id number] [place] [address] [place] Eosinophils (Bld) [#/Vol] Normal [facility] Comment on above: Order Comment: Speci men Type: BLOOD SPECIMENOrdering Facility: [facility] Address: [address] [place] [address] Result Comment: Too Few Cells To Do Differential. Performed By: #### 5 7021-8 ####[facility] LABCLIA [id number] [place] [address] [place] Eosinophils/100 WBC (Bld) Normal [facility] Comment on above: Order Comment: Speci men Type: BLOOD SPECIMENOrdering Facility: [facility] Address: [address] [place] [address] Result Comment: Too Few Cells To Do Differential. Performed By: #### 5 7021-8 ####[facility] LABIA [id number] [place] [address] [place] Erythrocyte distribution width (RBC) [Ratio] 13.9 % Normal 11.5-15.0 [facility] Comment on above: Order Comment: Speci men Type: BLOOD SPECIMENOrdering Facility: [facility] Address: [address] [place] [address] Performed By: #### 5 7021-8 ####[facility] LABIA [id number] [place] [address] [place] Hematocrit (Bld) [Volume fraction] 30.4 % Low 39.0-51.0 [facility] Comment on above: Order Comment: Speci men Type: BLOOD SPECIMENOrdering Facility: [facility] Address: [address] [place] [address] Performed By: #### 5 7021-8 ####[facility] LABIA [id number] [place] [address] [place] Hemoglobin (Bld) [Mass/Vol] 10.6 g/dL Low 13.0-17.0 [facility] Comment on above: Order Comment: Speci men Type: BLOOD SPECIMENOrdering Facility: [facility] Address: [address] [place] [address] Performed By: #### 5 7021-8 ####[facility] LABCLIA [id number] [place] [address] [place] Immature granulocytes (Bld) [#/Vol] Normal [facility] Comment on above: Order Comment: Speci men Type: BLOOD SPECIMENOrdering Facility: [facility] Address: [address] [place] [address] Result Comment: Too Few Cells To Do Differential. Performed By: #### 5 7021-8 ####[facility] LABCLIA [id number] [place] [address] [place] Immature granulocytes/100 WBC (Bld) Normal [facility] Comment on above: Order Comment: Speci men Type: BLOOD SPECIMENOrdering Facility: [facility] Address: [address] [place] [address] Result Comment: Too Few Cells To Do Differential. Performed By: #### 5 7021-8 ####[facility] LABCLIA [id number] [place] [address] [place] Lymphocytes (Bld) [#/Vol] Normal [facility] Comment on above: Order Comment: Speci men Type: BLOOD SPECIMENOrdering Facility: [facility] Address: [address] [place] [address] Result Comment: Too Few Cells To Do Differential. Performed By: #### 5 7021-8 ####[facility] LABCLIA [id number] [place] [address] [place] Lymphocytes/100 WBC (Bld) Normal [facility] Comment on above: Order Comment: Speci men Type: BLOOD SPECIMENOrdering Facility: [facility] Address: [address] [place] [address] Result Comment: Too Few Cells To Do Differential. Performed By: #### 5 7021-8 ####[facility] LABCLIA [id number] [place] [address] [place] MCH (RBC) [Entitic mass] 30.7 pg Normal 26.0-34.0 [facility] Comment on above: Order Comment: Speci men Type: BLOOD SPECIMENOrdering Facility: [facility] Address: [address] [place] [address] Performed By: #### 5 7021-8 ####[facility] LABCLIA [id number] [place] [address] [place] MCHC (RBC) [Mass/Vol] 34.9 g/dL Normal 30.5-36.0 [facility] Comment on above: Order Comment: Speci men Type: BLOOD SPECIMENOrdering Facility: [facility] Address: [address] [place] [address] Performed By: #### 5 7021-8 ####[facility] LABIA [id number] [place] [address] [place] MCV (RBC) [Entitic vol] 88.1 fL Normal 80.0-100.0 [facility] Comment on above: Order Comment: Speci men Type: BLOOD SPECIMENOrdering Facility: [facility] Address: [address] [place] [address] Performed By: #### 5 7021-8 ####[facility] LABIA [id number] [place] [address] [place] Monocytes (Bld) [#/Vol] Normal [facility] Comment on above: Order Comment: Speci men Type: BLOOD SPECIMENOrdering Facility: [facility] Address: [address] [place] [address] Result Comment: Too Few Cells To Do Differential. Performed By: #### 5 7021-8 ####[facility] LABIA [id number] [place] [address] [place] Monocytes/100 WBC (Bld) Normal [facility] Comment on above: Order Comment: Speci men Type: BLOOD SPECIMENOrdering Facility: [facility] Address: [address] [place] [address] Result Comment: Too Few Cells To Do Differential. Performed By: #### 5 7021-8 ####[facility] LABCLIA [id number] [place] [address] [place] Neutrophils (Bld) [#/Vol] Normal [facility] Comment on above: Order Comment: Speci men Type: BLOOD SPECIMENOrdering Facility: [facility] Address: [address] [place] [address] Result Comment: Too Few Cells To Do Differential. Performed By: #### 5 7021-8 ####[facility] LABCLIA [id number] [place] [address] [place] Neutrophils/100 WBC (Bld) Normal [facility] Comment on above: Order Comment: Speci men Type: BLOOD SPECIMENOrdering Facility: [facility] Address: [address] [place] [address] Result Comment: Too Few Cells To Do Differential. Performed By: #### 5 7021-8 ####[facility] LABCLIA [id number] [place] [address] [place] Nucleated RBC (Bld) [#/Vol] 10*3/uL Normal <0.01 [facility] Comment on above: Order Comment: Speci men Type: BLOOD SPECIMENOrdering Facility: [facility] Address: [address] [place] [address] Performed By: #### 5 7021-8 ####[facility] LABCLIA [id number] [place] [address] [place] Nucleated RBC/100 WBC (Bld) [Ratio] 0.0 /100 WBC Normal [facility] Comment on above: Order Comment: Speci men Type: BLOOD SPECIMENOrdering Facility: [facility] Address: [address] [place] [address] Performed By: #### 5 7021-8 ####[facility] LABCLIA [id number] [place] [address] [place] Platelet mean volume (Bld) [Entitic vol] 11.0 fL Normal 9.0-12.7 [facility] Comment on above: Order Comment: Speci men Type: BLOOD SPECIMENOrdering Facility: [facility] Address: [address] [place] [address] Performed By: #### 5 7021-8 ####[facility] LABCLIA [id number] [place] [address] [place] Platelets (Bld) [#/Vol] 37 10*3/uL Low 150-400 [facility] Comment on above: Order Comment: Speci men Type: BLOOD SPECIMENOrdering Facility: [facility] Address: [address] [place] [address] Performed By: #### 5 7021-8 ####[facility] LABIA [id number] [place] [address] [place] RBC (Bld) [#/Vol] 3.45 10*6/uL Low 4.20-6.00 [facility] Comment on above: Order Comment: Speci men Type: BLOOD SPECIMENOrdering Facility: [facility] Address: [address] [place] [address] Performed By: #### 5 7021-8 ####[facility] LABIA [id number] [place] [address] [place] WBC (Bld) [#/Vol] 0.20 10*3/uL Low 3.70-11.00 [facility] Comment on above: Order Comment: Speci men Type: BLOOD SPECIMENOrdering Facility: [facility] Address: [address] [place] [address] Result Comment: Resu lts checked and verified.No clot detected. Performed By: #### 5 7021-8 ####[facility] LABCLIA [id number] [place] [address] [place] CRP SerPl-mCncon 06-10-2024 CRP [Mass/Vol] 2.7 mg/dL High <0.9 [facility] Comment on above: Order Comment: Speci men Type: BLOOD SPECIMENOrdering Facility: [facility] Address: [address] [place] [address] Performed By: #### 1 988-5, 25746-7, 2777-1, 3084-1, 2276-4 ####[facility] LABCLIA [id number] [place] [address] [place] Comprehensive metabolic 2000 panelon 04-12-2024 Albumin [Mass/Vol] 3.1 g/dL Low 3.9-4.9 [facility] Comment on above: Order Comment: Speci men Type: BLOOD SPECIMENOrdering Facility: [facility] Address: [address] [place] [address] Performed By: #### 2 4323-8, 2532-0 ####[facility] LABCLIA [id number] [place] [address] [place] ALP [Catalytic activity/Vol] 109 U/L Normal 38-113 [facility] Comment on above: Order Comment: Speci men Type: BLOOD SPECIMENOrdering Facility: [facility] Address: [address] [place] [address] Performed By: #### 2 4323-8, 2532-0 ####[facility] LABCLIA [id number] [place] [address] [place] ALT [Catalytic activity/Vol] 20 U/L Normal 10-54 [facility] Comment on above: Order Comment: Speci men Type: BLOOD SPECIMENOrdering Facility: [facility] Address: [address] [place] [address] Performed By: #### 2 4323-8, 2532-0 ####[facility] LABCLIA [id number] [place] [id number] [place] Anion gap [Moles/Vol] 10 mmol/L Normal 8-15 [facility] Comment on above: Order Comment: Speci men Type: BLOOD SPECIMENOrdering Facility: [facility] Address: [address] [place] [address] Performed By: #### 2 4323-8, 2531-0 ####[facility] LABCLIA [id number] [place] [id number] [place] AST [Catalytic activity/Vol] 13 U/L Low 14-40 [facility] Comment on above: Order Comment: Speci men Type: BLOOD SPECIMENOrdering Facility: [facility] Address: [address] [place] [address] Performed By: #### 2 4323-8, 2531-0 ####[facility] LABCLIA [id number] [place] [address] [place] Bilirubin [Mass/Vol] 0.3 mg/dL Normal 0.2-1.3 [facility] Comment on above: Order Comment: Speci men Type: BLOOD SPECIMENOrdering Facility: [facility] Address: [address] [place] [address] Performed By: #### 2 4323-8, 2531-0 ####[facility] LABCLIA [id number] [place] [address] [place] Calcium [Mass/Vol] 7.6 mg/dL Low 8.5-10.2 [facility] Comment on above: Order Comment: Speci men Type: BLOOD SPECIMENOrdering Facility: [facility] Address: [address] [place] [address] Performed By: #### 2 4323-8, 2531-0 ####[facility] LABCLIA [id number] [place] [address] [place] Chloride [Moles/Vol] 106 mmol/L Normal 98-107 [facility] Comment on above: Order Comment: Speci men Type: BLOOD SPECIMENOrdering Facility: [facility] Address: [address] [place] [address] Performed By: #### 2 4323-8, 2531-0 ####[facility] LABCLIA [id number] [place] [address] [place] CO2 [Moles/Vol] 21 mmol/L Low 22-30 [facility] Comment on above: Order Comment: Speci men Type: BLOOD SPECIMENOrdering Facility: [facility] Address: [address] [place] [address] Performed By: #### 2 4323-8, 2531-0 ####[facility] LABIA [id number] [place] [address] [place] Creatinine [Mass/Vol] 1.12 mg/dL Normal 0.73-1.22 [facility] Comment on above: Order Comment: Speci men Type: BLOOD SPECIMENOrdering Facility: [facility] Address: [address] [place] [address] Performed By: #### 2 4328, 2531-0 ####[facility] LABIA [id number] [place] [address] [place] Creatinine and Glomerular filtration rate.predicted panel (S/P/Bld) 72 mL/min/1.73m??? Normal >=60 [facility] Comment on above: Order Comment: Speci men Type: BLOOD SPECIMENOrdering Facility: [facility] Address: [address] [place] [address] Result Comment: Carol mated Glomerular Filtration Rate [...] GFR. Performed By: #### 2 4323-8, 2531-0 ####[facility] LABIA [id number] [address] [id number] [address] [place] Glucose [Mass/Vol] 115 mg/dL High 74-99 [facility] Comment on above: Order Comment: Speci men Type: BLOOD SPECIMENOrdering Facility: [facility] Address: [address] [place] [address] Result Comment: The [place] [employer] (ADA) provides guidance for cutoff [...] Standards of Medical Care in Diabetes 2016, [place] [employer]. Diabetes Care. 2016.39(Suppl 1). Performed By: #### 2 4323-8, 0 ####[facility] LABCLIA [id number] [place] [address] [place] Potassium [Moles/Vol] 3.3 mmol/L Low 3.7-5.1 [facility] Comment on above: Order Comment: Sara randle Type: BLOOD SPECIMENOrdering Facility: [facility] Address: [address] [place] [address] Performed By: #### 2 4323-8, 0 ####[facility] LABCLIA [id number] [place] [address] [place] Protein [Mass/Vol] 4.9 g/dL Low 6.3-8.0 [facility] Comment on above: Order Comment: Sara randle Type: BLOOD SPECIMENOrdering Facility: [facility] Address: [address] [place] [address] Performed By: #### 2 4323-8, 2531-0 ####[facility] LABCLIA [id number] [place] [address] [place] Sodium [Moles/Vol] 137 mmol/L Normal 136-144 [facility] Comment on above: Order Comment: Speci men Type: BLOOD SPECIMENOrdering Facility: [facility] Address: [address] [place] [address] Performed By: #### 2 4323-8, 2532-0 ####[facility] LABCLIA [id number] [place] [address] [place] Urea nitrogen [Mass/Vol] 6 mg/dL Low 9-24 [facility] Comment on above: Order Comment: Speci men Type: BLOOD SPECIMENOrdering Facility: [facility] Address: [address] [place] [address] Performed By: #### 2 4323-8, 2531-0 ####[facility] LABCLIA [id number] [place] [address] [place] Ferritin SerPl-mCncon 2023 Ferritin [Mass/Vol] 950.0 ng/mL High 30.3-565.7 [facility] Comment on above: Order Comment: Speci men Type: BLOOD SPECIMENOrdering Facility: [facility] Address: [address] [place] [address] Performed By: #### 1 988-5, 56780-2, 2777-1, 3084-1, 2276-4 ####[facility] LABCLIA [id number] [place] [address] [place] LDH SerPl-cCncon 04-12-2024 LDH [Catalytic activity/Vol] 165 U/L Normal 135-225 [facility] Comment on above: Order Comment: Speci men Type: BLOOD SPECIMENOrdering Facility: [facility] Address: [address] [place] [address] Performed By: #### 2 4323-8, 2532-0 ####[facility] LABCLIA [id number] [place] [address] [place] Magnesium SerPl-mCncon 04-12 Magnesium [Mass/Vol] 1.9 mg/dL Normal 1.7-2.3 [facility] Comment on above: Order Comment: Speci men Type: BLOOD SPECIMENOrdering Facility: [facility] Address: [address] [place] [address] Performed By: #### 1 988-5, 75711-6, 2776-1, 308-1, 6-4 ####[facility] LABCLIA [id number] [place] [id number] [place] NURSING PROGon 04-12-2024 NURSING PROG Normal [facility] Phosphate SerPl-mCncon 04-12 Phosphate [Mass/Vol] 2.2 mg/dL Low 2.7-4.8 [facility] Comment on above: Order Comment: Speci men Type: BLOOD SPECIMENOrdering Facility: [facility] Address: [address] [place] [address] Performed By: #### 1 988-5, 05810-4, 2776-1, 308-1, 2275-4 ####[facility] LABIA [id number] [place] [address] [place] Urate SerPl-mCncon Urate [Mass/Vol] 1.7 mg/dL Low 4.0-8.1 [facility] Comment on above: Order Comment: Speci men Type: BLOOD SPECIMENOrdering Facility: [facility] Address: [address] [place], [place] [address] Performed By: #### 1 988-5, 59397-7, 2776-1, 3084-1, 2275-4 ####[facility] LABCLIA [id number] [place] [id number] [place] Bacteria Bld Culton 04-11-20 24 Bacteria identified Cx Nom (Bld) CULTURE, BLOOD: No growth 5 days Normal [facility] Comment on above: Performed By: #### 6 00-7 ####[facility] LABCLIA [id number] [place] [address] [place] Bacteria identified Cx Nom (Bld) CULTURE, BLOOD: No growth 5 days Normal [facility] Comment on above: Performed By: #### 6 00-7 ####[facility] LABCLIA [id number] [place] [address] [place] C diff Tox gens Stl Ql HARVEY+p robeon 04-11-2024 C. difficile toxin genes HARVEY+probe Ql (Stl) Negative Normal Negative for C. difficile toxin by PCR [facility] Comment on above: Order Comment: Speci men Type: STOOL SPECIMENOrdering Facility: [facility] Address: [address] [place] [address] Performed By: #### 5 4067-4 ####[facility] LABIA [id number] [place] [address] [place] CBC W Auto Differential pane l (Bld)on 04-11-2024 Basophils (Bld) [#/Vol] Normal [facility] Comment on above: Order Comment: Speci men Type: BLOOD SPECIMENOrdering Facility: [facility] Address: [address] [place] [address] Result Comment: Too Few Cells To Do Differential. Performed By: #### 5 7021-8 ####[facility] LABIA [id number] [place] [address] [place] Basophils/100 WBC (Bld) Normal [facility] Comment on above: Order Comment: Speci men Type: BLOOD SPECIMENOrdering Facility: [facility] Address: [address] [place] [address] Result Comment: Too Few Cells To Do Differential. Performed By: #### 5 7021-8 ####[facility] LABCLIA [id number] [place] [address] [place] Differential cell count method Nom (Bld) Auto Normal [facility] Comment on above: Order Comment: Speci men Type: BLOOD SPECIMENOrdering Facility: [facility] Address: [address] [place] [address] Performed By: #### 5 7021-8 ####[facility] LABCLIA [id number] [place] [address] [place] Eosinophils (Bld) [#/Vol] Normal [facility] Comment on above: Order Comment: Speci men Type: BLOOD SPECIMENOrdering Facility: [facility] Address: [address] [place] [address] Result Comment: Too Few Cells To Do Differential. Performed By: #### 5 7021-8 ####[facility] LABCLIA [id number] [place] [address] [place] Eosinophils/100 WBC (Bld) Normal [facility] Comment on above: Order Comment: Speci men Type: BLOOD SPECIMENOrdering Facility: [facility] Address: [address] [place] [address] Result Comment: Too Few Cells To Do Differential. Performed By: #### 5 7021-8 ####[facility] LABCLIA [id number] [place] [address] [place] Erythrocyte distribution width (RBC) [Ratio] 13.6 % Normal 11.5-15.0 [facility] Comment on above: Order Comment: Speci men Type: BLOOD SPECIMENOrdering Facility: [facility] Address: [address] [place] [address] Performed By: #### 5 7021-8 ####[facility] LABCLIA [id number] [place] [address] [place] Hematocrit (Bld) [Volume fraction] 32.2 % Low 39.0-51.0 [facility] Comment on above: Order Comment: Speci men Type: BLOOD SPECIMENOrdering Facility: [facility] Address: [address] [place] [address] Performed By: #### 5 7021-8 ####[facility] LABCLIA [id number] [place] [address] [place] Hemoglobin (Bld) [Mass/Vol] 11.1 g/dL Low 13.0-17.0 [facility] Comment on above: Order Comment: Speci men Type: BLOOD SPECIMENOrdering Facility: [facility] Address: [address] [place] [address] Performed By: #### 5 7021-8 ####[facility] LABCLIA [id number] [place] [address] [place] Immature granulocytes (Bld) [#/Vol] Normal [facility] Comment on above: Order Comment: Speci men Type: BLOOD SPECIMENOrdering Facility: [facility] Address: [address] [place] [address] Result Comment: Too Few Cells To Do Differential. Performed By: #### 5 7021-8 ####[facility] LABIA [id number] [place] [address] [place] Immature granulocytes/100 WBC (Bld) Normal [facility] Comment on above: Order Comment: Speci men Type: BLOOD SPECIMENOrdering Facility: [facility] Address: [address] [place] [address] Result Comment: Too Few Cells To Do Differential. Performed By: #### 5 7021-8 ####[facility] LABCLIA [id number] [place] [address] [place] Lymphocytes (Bld) [#/Vol] Normal [facility] Comment on above: Order Comment: Speci men Type: BLOOD SPECIMENOrdering Facility: [facility] Address: [address] [place] [address] Result Comment: Too Few Cells To Do Differential. Performed By: #### 5 7021-8 ####[facility] LABCLIA [id number] [place] [address] [place] Lymphocytes/100 WBC (Bld) Normal [facility] Comment on above: Order Comment: Speci men Type: BLOOD SPECIMENOrdering Facility: [facility] Address: [address] [place] [address] Result Comment: Too Few Cells To Do Differential. Performed By: #### 5 7021-8 ####[facility] LABCLIA [id number] [place] [address] [place] MCH (RBC) [Entitic mass] 30.9 pg Normal 26.0-34.0 [facility] Comment on above: Order Comment: Speci men Type: BLOOD SPECIMENOrdering Facility: [facility] Address: [address] [place] [address] Performed By: #### 5 7021-8 ####[facility] LABCLIA [id number] [place] [address] [place] MCHC (RBC) [Mass/Vol] 34.5 g/dL Normal 30.5-36.0 [facility] Comment on above: Order Comment: Speci men Type: BLOOD SPECIMENOrdering Facility: [facility] Address: [address] [place] [address] Performed By: #### 5 7021-8 ####[facility] LABIA [id number] [place] [address] [place] MCV (RBC) [Entitic vol] 89.7 fL Normal 80.0-100.0 [facility] Comment on above: Order Comment: Speci men Type: BLOOD SPECIMENOrdering Facility: [facility] Address: [address] [place] [address] Performed By: #### 5 7021-8 ####[facility] LABIA [id number] [place] [address] [place] Monocytes (Bld) [#/Vol] Normal [facility] Comment on above: Order Comment: Speci men Type: BLOOD SPECIMENOrdering Facility: [facility] Address: [address] [place] [address] Result Comment: Too Few Cells To Do Differential. Performed By: #### 5 7021-8 ####[facility] LABCLIA [id number] [place] [address] [place] Monocytes/100 WBC (Bld) Normal [facility] Comment on above: Order Comment: Speci men Type: BLOOD SPECIMENOrdering Facility: [facility] Address: [address] [place] [address] Result Comment: Too Few Cells To Do Differential. Performed By: #### 5 7021-8 ####[facility] LABCLIA [id number] [place] [address] [place] Neutrophils (Bld) [#/Vol] Normal [facility] Comment on above: Order Comment: Speci men Type: BLOOD SPECIMENOrdering Facility: [facility] Address: [address] [place] [address] Result Comment: Too Few Cells To Do Differential. Performed By: #### 5 7021-8 ####[facility] LABCLIA [id number] [place] [address] [place] Neutrophils/100 WBC (Bld) Normal [facility] Comment on above: Order Comment: Speci men Type: BLOOD SPECIMENOrdering Facility: [facility] Address: [address] [place] [address] Result Comment: Too Few Cells To Do Differential. Performed By: #### 5 7021-8 ####[facility] LABCLIA [id number] [place] [address] [place] Nucleated RBC (Bld) [#/Vol] 10*3/uL Normal <0.01 [facility] Comment on above: Order Comment: Speci men Type: BLOOD SPECIMENOrdering Facility: [facility] Address: [address] [place] [address] Performed By: #### 5 7021-8 ####[facility] LABCLIA [id number] [place] [address] [place] Nucleated RBC/100 WBC (Bld) [Ratio] 0.0 /100 WBC Normal [facility] Comment on above: Order Comment: Speci men Type: BLOOD SPECIMENOrdering Facility: [facility] Address: [address] [place] [address] Performed By: #### 5 7021-8 ####[facility] LABCLIA [id number] [place] [address] [place] Platelet mean volume (Bld) [Entitic vol] 9.8 fL Normal 9.0-12.7 [facility] Comment on above: Order Comment: Speci men Type: BLOOD SPECIMENOrdering Facility: [facility] Address: [address] [place] [address] Performed By: #### 5 7021-8 ####[facility] LABIA [id number] [place] [address] [place] Platelets (Bld) [#/Vol] 46 10*3/uL Low 150-400 [facility] Comment on above: Order Comment: Speci men Type: BLOOD SPECIMENOrdering Facility: [facility] Address: [address] [place] [address] Result Comment: No c lot detected. Performed By: #### 5 7021-8 ####[facility] LABIA [id number] [place] [address] [place] RBC (Bld) [#/Vol] 3.59 10*6/uL Low 4.20-6.00 [facility] Comment on above: Order Comment: Speci men Type: BLOOD SPECIMENOrdering Facility: [facility] Address: [address] [place] [address] Performed By: #### 5 7021-8 ####[facility] LABCLIA [id number] [place] [address] [place] WBC (Bld) [#/Vol] 0.10 10*3/uL Low 3.70-11.00 [facility] Comment on above: Order Comment: Speci men Type: BLOOD SPECIMENOrdering Facility: [facility] Address: [address] [place] [address] Result Comment: No c lot detected. Too Few Cells To Do Differential Performed By: #### 5 7021-8 ####[facility] LABCLIA [id number] [place] [address] [place] CRP SerPl-mCncon 04-11-2024 CRP [Mass/Vol] 4.3 mg/dL High <0.9 [facility] Comment on above: Order Comment: Speci men Type: BLOOD SPECIMENOrdering Facility: [facility] Address: [address] [place] [address] Performed By: #### 1 9123-9, 2777-1, 3084-1, 2276-4, 1987- ####[facility] LABCLIA [id number] [place] [address] [place] Comprehensive metabolic 2000 panelon 04-11-2024 Albumin [Mass/Vol] 3.1 g/dL Low 3.9-4.9 [facility] Comment on above: Order Comment: Speci men Type: BLOOD SPECIMENOrdering Facility: [facility] Address: [address] [place] [address] Performed By: #### 2 4323-8, 2532-0 ####[facility] LABCLIA [id number] [place] [address] [place] ALP [Catalytic activity/Vol] 119 U/L High 38-113 [facility] Comment on above: Order Comment: Speci men Type: BLOOD SPECIMENOrdering Facility: [facility] Address: [address] [place] [address] Performed By: #### 2 4323-8, 2532-0 ####[facility] LABCLIA [id number] [id number] [address] [place] ALT [Catalytic activity/Vol] 19 U/L Normal 10-54 [facility] Comment on above: Order Comment: Speci men Type: BLOOD SPECIMENOrdering Facility: [facility] Address: [address] [place] [address] Performed By: #### 2 4323-8, 2531-0 ####[facility] LABCLIA [id number] [place] [address] [place] Anion gap [Moles/Vol] 9 mmol/L Normal 8-15 [facility] Comment on above: Order Comment: Speci men Type: BLOOD SPECIMENOrdering Facility: [facility] Address: [address] [place] [address] Performed By: #### 2 4323-8, 2531-0 ####[facility] LABCLIA [id number] [place] [address] [place] AST [Catalytic activity/Vol] 16 U/L Normal 14-40 [facility] Comment on above: Order Comment: Speci men Type: BLOOD SPECIMENOrdering Facility: [facility] Address: [address] [place] [address] Performed By: #### 2 4323-8, 0 ####[facility] LABCLIA [id number] [place] [address] [place] Bilirubin [Mass/Vol] 0.3 mg/dL Normal 0.2-1.3 [facility] Comment on above: Order Comment: Speci men Type: BLOOD SPECIMENOrdering Facility: [facility] Address: [address] [place], [place] [address] Performed By: #### 2 4323-8, 2531-0 ####[facility] LABCLIA [id number] [place] [address] [place] Calcium [Mass/Vol] 7.6 mg/dL Low 8.5-10.2 [facility] Comment on above: Order Comment: Speci men Type: BLOOD SPECIMENOrdering Facility: [facility] Address: [address] [place] [address] Performed By: #### 2 4323-8, 2532-0 ####[facility] LABCLIA [id number] [place] [id number] [place] Chloride [Moles/Vol] 107 mmol/L Normal 98-107 [facility] Comment on above: Order Comment: Speci men Type: BLOOD SPECIMENOrdering Facility: [facility] Address: [address] [place] [address] Performed By: #### 2 4323-8, 2532-0 ####[facility] LABCLIA [id number] [place] [address] [place] CO2 [Moles/Vol] 21 mmol/L Low 22-30 [facility] Comment on above: Order Comment: Speci men Type: BLOOD SPECIMENOrdering Facility: [facility] Address: [address] [place] [address] Performed By: #### 2 4323-8, 2532-0 ####[facility] LABCLIA [id number] [place] [address] [place] Creatinine [Mass/Vol] 1.13 mg/dL Normal 0.73-1.22 [facility] Comment on above: Order Comment: Speci men Type: BLOOD SPECIMENOrdering Facility: [facility] Address: [address] [place] [address] Performed By: #### 2 4323-8, 2532-0 ####[facility] LABIA [id number] [place] [address] [place] Creatinine and Glomerular filtration rate.predicted panel (S/P/Bld) 71 mL/min/1.73m??? Normal >=60 [facility] Comment on above: Order Comment: Speci men Type: BLOOD SPECIMENOrdering Facility: [facility] Address: [address] [place] [address] Result Comment: Carol mated Glomerular Filtration Rate [...] GFR. Performed By: #### 2 4323-8, 2531-0 ####[facility] LABCLIA [id number] [place] [address] [place] Glucose [Mass/Vol] 115 mg/dL High 74-99 [facility] Comment on above: Order Comment: Sara randle Type: BLOOD SPECIMENOrdering Facility: [facility] Address: [address] [place] [address] Result Comment: The [place] [employer] (ADA) provides guidance for cutoff [...] Standards of Medical Care in Diabetes 2016, [place] [employer]. Diabetes Care. 2016.39(Suppl 1). Performed By: #### 2 4328, 0 ####[facility] LABIA [id number] [place] [address] [place] Potassium [Moles/Vol] 3.5 mmol/L Low 3.7-5.1 [facility] Comment on above: Order Comment: Sara randle Type: BLOOD SPECIMENOrdering Facility: [facility] Address: [address] [place] [address] Performed By: #### 2 4323-8, 2531-0 ####[facility] LABCLIA [id number] [place] [id number] [place] Protein [Mass/Vol] 5.1 g/dL Low 6.3-8.0 [facility] Comment on above: Order Comment: Speci men Type: BLOOD SPECIMENOrdering Facility: [facility] Address: [address] [place] [address] Performed By: #### 2 4323-8, 2532-0 ####[facility] LABCLIA [id number] [place] [address] [place] Sodium [Moles/Vol] 137 mmol/L Normal 136-144 [facility] Comment on above: Order Comment: Speci men Type: BLOOD SPECIMENOrdering Facility: [facility] Address: [address] [place] [address] Performed By: #### 2 4323-8, 2532-0 ####[facility] LABCLIA [id number] [place] [address] [place] Urea nitrogen [Mass/Vol] 9 mg/dL Normal 9-24 [facility] Comment on above: Order Comment: Speci men Type: BLOOD SPECIMENOrdering Facility: [facility] Address: [address] [place] [address] Performed By: #### 2 4323-8, 2532-0 ####[facility] LABCLIA [id number] [place] [address] [place] Ferritin SerPl-mCncon 2023 Ferritin [Mass/Vol] 920.0 ng/mL High 30.3-565.7 [facility] Comment on above: Order Comment: Speci men Type: BLOOD SPECIMENOrdering Facility: [facility] Address: [address] [place] [address] Performed By: #### 1 9123-9, 2777-1, 3084-1, 2276-4, 1988- ####[facility] LABCLIA [id number] [place] [id number] [place] Gas and Carbon monoxide pane l (BldV)on 04-11-2024 Base excess Calc (BldV) [Moles/Vol] 0 mmol/L Normal 0-2 [facility] Comment on above: Order Comment: Speci men Type: VENOUS BLOOD SPECIMENOrdering Facility: [facility] Address: [address] [place] [address] Performed By: #### 2 4344-4 ####[facility] LABIA [id number] [place] [address] [place] Body temperature 100.22 [degF] Normal [facility] Comment on above: Order Comment: Speci men Type: VENOUS BLOOD SPECIMENOrdering Facility: [facility] Address: [address] [place] [address] Performed By: #### 2 4344-4 ####[facility] LABIA [id number] [place] [address] [place] Calcium.ionized (Bld) [Mass/Vol] 1.12 mmol/L Normal 1.08-1.30 [facility] Comment on above: Order Comment: Speci men Type: VENOUS BLOOD SPECIMENOrdering Facility: [facility] Address: [address] [place] [address] Performed By: #### 2 4344-4 ####[facility] LABIA [id number] [place] [address] [place] Calcium.ionized adjusted to pH 7.4 (BldA) [Moles/Vol] 1.12 mmol/L Normal 1.08-1.30 [facility] Comment on above: Order Comment: Speci men Type: VENOUS BLOOD SPECIMENOrdering Facility: [facility] Address: [address] [place] [address] Performed By: #### 2 4344-4 ####[facility] LABIA [id number] [place] [address] [place] Carboxyhemoglobin (BldV) [Mass fraction] 1.6 % Normal 0.0-2.0 [facility] Comment on above: Order Comment: Speci men Type: VENOUS BLOOD SPECIMENOrdering Facility: [facility] Address: [address] [place] [address] Result Comment: Carb oxyhemoglobin Reference Range for Smokers: 2.0-8.0% Performed By: #### 2 4344-4 ####[facility] LABCLIA [id number] [place] [address] [place] CO2 (BldV) [Partial pressure] 39 mm[Hg] Low 42-55 [facility] Comment on above: Order Comment: Speci men Type: VENOUS BLOOD SPECIMENOrdering Facility: [facility] Address: [address] [place] [address] Performed By: #### 2 4344-4 ####[facility] LABCLIA [id number] [place] [address] [place] CO2 adjusted to patient's actual temperature (BldV) [Partial pressure] 41 mmHg Low 42-55 [facility] Comment on above: Order Comment: Speci men Type: VENOUS BLOOD SPECIMENOrdering Facility: [facility] Address: [address] [place] [address] Performed By: #### 2 4344-4 ####[facility] LABCLIA [id number] [place] [address] [place] Glucose [Mass/Vol] 129 mg/dL High 60-105 [facility] Comment on above: Order Comment: Speci men Type: VENOUS BLOOD SPECIMENOrdering Facility: [facility] Address: [address] [place] [address] Performed By: #### 2 4344-4 ####[facility] LABCLIA [id number] [place] [address] [place] HCO3 (Bld) [Moles/Vol] 24 mmol/L Normal 24-28 [facility] Comment on above: Order Comment: Speci men Type: VENOUS BLOOD SPECIMENOrdering Facility: [facility] Address: [address] [place] [address] Performed By: #### 2 4344-4 ####[facility] LABIA [id number] [place] [address] [place] Hematocrit (Bld) [Volume fraction] 32.5 % Low 39.0-51.0 [facility] Comment on above: Order Comment: Speci men Type: VENOUS BLOOD SPECIMENOrdering Facility: [facility] Address: [address] [place] [address] Performed By: #### 2 4344-4 ####[facility] LABIA [id number] [place] [address] [place] Hemoglobin (Bld) [Mass/Vol] 10.5 g/dL Low 13.0-17.0 [facility] Comment on above: Order Comment: Speci men Type: VENOUS BLOOD SPECIMENOrdering Facility: [facility] Address: [address] [place] [address] Performed By: #### 2 4344-4 ####[facility] LABIA [id number] [place] [address] [place] Lactate [Moles/Vol] 1.5 mmol/L Normal 0.5-2.2 [facility] Comment on above: Order Comment: Speci men Type: VENOUS BLOOD SPECIMENOrdering Facility: [facility] Address: [address] [place] [address] Performed By: #### 2 4344-4 ####[facility] LABIA [id number] [place] [address] [place] Methemoglobin (Bld) [Mass fraction] 0.4 % Normal 0.0-1.5 [facility] Comment on above: Order Comment: Speci men Type: VENOUS BLOOD SPECIMENOrdering Facility: [facility] Address: [address] [place] [address] Performed By: #### 2 4344-4 ####[facility] LABCLIA [id number] [address] [address] [place] O2 THERAPY RA=Room Air Normal [facility] Comment on above: Order Comment: Speci men Type: VENOUS BLOOD SPECIMENOrdering Facility: [facility] Address: [address] [place] [address] Performed By: #### 2 4344-4 ####[facility] LABCLIA [id number] [address] [address] [place] Oxygen (BldV) [Partial pressure] 37 mm[Hg] Normal 35-45 [facility] Comment on above: Order Comment: Speci men Type: VENOUS BLOOD SPECIMENOrdering Facility: [facility] Address: [address] [place] [address] Performed By: #### 2 4344-4 ####[facility] LABCLIA [id number] [address] [address] [place] Oxygen adjusted to patient's actual temperature (BldV) [Partial pressure] 39 mmHg Normal 35-45 [facility] Comment on above: Order Comment: Speci men Type: VENOUS BLOOD SPECIMENOrdering Facility: [facility] Address: [address] [place] [address] Performed By: #### 2 4344-4 ####[facility] LABCLIA [id number] [address] [address] [place] Oxygen saturation in Venous blood 67 % Normal 60-85 [facility] Comment on above: Order Comment: Speci men Type: VENOUS BLOOD SPECIMENOrdering Facility: [facility] Address: [address] [place] [address] Performed By: #### 2 4344-4 ####[facility] LABCLIA [id number] [address] [address] [place] Oxyhemoglobin (BldV) [Mass fraction] 66 % Normal 60-85 [facility] Comment on above: Order Comment: Speci men Type: VENOUS BLOOD SPECIMENOrdering Facility: [facility] Address: [address] [place] [address] Performed By: #### 2 4344-4 ####[facility] LABCLIA [id number] [place] [address] [place] pH (BldV) 7.40 [pH] Normal 7.32-7.42 [facility] Comment on above: Order Comment: Speci men Type: VENOUS BLOOD SPECIMENOrdering Facility: [facility] Address: [address] [place] [address] Performed By: #### 2 4344-4 ####[facility] LABCLIA [id number] [place] [address] [place] pH adjusted to patient's actual temperature (BldV) 7.39 Normal 7.32-7.42 [facility] Comment on above: Order Comment: Speci men Type: VENOUS BLOOD SPECIMENOrdering Facility: [facility] Address: [address] [place] [address] Performed By: #### 2 4344-4 ####[facility] LABCLIA [id number] [place] [address] [place] Potassium [Moles/Vol] 3.2 mmol/L Low 3.5-5.0 [facility] Comment on above: Order Comment: Speci men Type: VENOUS BLOOD SPECIMENOrdering Facility: [facility] Address: [address] [place] [address] Performed By: #### 2 4344-4 ####[facility] LABCLIA [id number] [place] [id number] [place] Sodium [Moles/Vol] 136 mmol/L Normal 136-144 [facility] Comment on above: Order Comment: Speci men Type: VENOUS BLOOD SPECIMENOrdering Facility: [facility] Address: [address] [place], [place] [address] Performed By: #### 2 4344-4 ####[facility] LABCLIA [id number] [place] [id number] [place] LDH SerPl-cCncon 04-11-2024 LDH [Catalytic activity/Vol] 160 U/L Normal 135-225 [facility] Comment on above: Order Comment: Speci men Type: BLOOD SPECIMENOrdering Facility: [facility] Address: [address] [place] [address] Performed By: #### 2 4323-8, 2532-0 ####[facility] LABCLIA [id number] [place] [id number] [place] Magnesium SerPl-mCncon 04-11 Magnesium [Mass/Vol] 1.7 mg/dL Normal 1.7-2.3 [facility] Comment on above: Order Comment: Speci men Type: BLOOD SPECIMENOrdering Facility: [facility] Address: [address] [place] [address] Performed By: #### 1 9123-9, 2777-1, 3084-1, 2276-02, 1988-03 ####[facility] LABCLIA [id number] [place] [id number] [place] NURSING PROGon 04-11-2024 NURSING PROG Normal [facility] Phosphate SerPl-mCncon 04-11 Phosphate [Mass/Vol] 2.3 mg/dL Low 2.7-4.8 [facility] Comment on above: Order Comment: Speci men Type: BLOOD SPECIMENOrdering Facility: [facility] Address: [address] [place], [place] [address] Performed By: #### 1 9123-9, 2777-1, 3084-1, 2276-02, 1988-03 ####[facility] LABCLIA [id number] [address] [address] [place] TYPE + SCREENon 04-11-2024 ABO B Normal [facility] Comment on above: Order Comment: Speci men Type: BLOOD SPECIMENOrdering Facility: [facility] Address: [address] [place] [address] Performed By: #### T SCR ####CC MAIN BLOOD BANKCLIA [id number] [address] HISTORICAL AB SCR STATUS Negative Normal [facility] Comment on above: Order Comment: Speci men Type: BLOOD SPECIMENOrdering Facility: [facility] Address: [address] [place] [address] Performed By: #### T SCR ####CC MAIN BLOOD BANKCLIA [id number] [place] [address] [place] Rh Nom (Bld) Negative Normal [facility] Comment on above: Order Comment: Speci men Type: BLOOD SPECIMENOrdering Facility: [facility] Address: [address] [place] [address] Performed By: #### T SCR ####CC [facility] BLOOD BANKCLIA [id number] [address] [place] TYPE AND SCREEN EXPIRATION 04/14/2024 23:59 Normal [facility] Comment on above: Order Comment: Speci men Type: BLOOD SPECIMENOrdering Facility: [facility] Address: [address] [place] [address] Performed By: #### T SCR ####CC [facility] BLOOD BANKCLIA [id number] [address] [place] Urate SerPl-mCncon 4 Urate [Mass/Vol] 1.5 mg/dL Low 4.0-8.1 [facility] Comment on above: Order Comment: Speci men Type: BLOOD SPECIMENOrdering Facility: [facility] Address: [address] [place] [address] Performed By: #### 1 9123-9, 2777-1, 3084-1, 2276-4, 1988- ####[facility] LABCLIA [id number] [place] [address] [place] Bacteria Bld Culton 04-10-20 Bacteria identified Cx Nom (Bld) CULTURE, BLOOD: No growth 5 days Normal [facility] Comment on above: Performed By: #### 6 00-7 ####[facility] LABCLIA [id number] [place] [address] [place] Bacteria identified Cx Nom (Bld) CULTURE, BLOOD: No growth 5 days Normal [facility] Comment on above: Performed By: #### 6 00-7 ####[facility] LABCLIA [id number] [place] [address] [place] CBC W Auto Differential pane l (Bld)on 04-10-2024 Basophils (Bld) [#/Vol] Normal [facility] Comment on above: Order Comment: Speci men Type: BLOOD SPECIMENOrdering Facility: [facility] Address: [address] [place] [address] Result Comment: Too Few Cells To Do Differential. Performed By: #### 5 7021-8 ####[facility] LABCLIA [id number] [place] [address] [place] Basophils/100 WBC (Bld) Normal [facility] Comment on above: Order Comment: Speci men Type: BLOOD SPECIMENOrdering Facility: [facility] Address: [address] [place] [address] Result Comment: Too Few Cells To Do Differential. Performed By: #### 5 7021-8 ####[facility] LABCLIA [id number] [place] [address] [place] Differential cell count method Nom (Bld) Auto Normal [facility] Comment on above: Order Comment: Speci men Type: BLOOD SPECIMENOrdering Facility: [facility] Address: [address] [place] [address] Performed By: #### 5 7021-8 ####[facility] LABCLIA [id number] [place] [address] [place] Eosinophils (Bld) [#/Vol] Normal [facility] Comment on above: Order Comment: Speci men Type: BLOOD SPECIMENOrdering Facility: [facility] Address: [address] [place] [address] Result Comment: Too Few Cells To Do Differential. Performed By: #### 5 7021-8 ####[facility] LABCLIA [id number] [place] [address] [place] Eosinophils/100 WBC (Bld) Normal [facility] Comment on above: Order Comment: Speci men Type: BLOOD SPECIMENOrdering Facility: [facility] Address: [address] [place] [address] Result Comment: Too Few Cells To Do Differential. Performed By: #### 5 7021-8 ####[facility] LABCLIA [id number] [place] [address] [place] Erythrocyte distribution width (RBC) [Ratio] 13.6 % Normal 11.5-15.0 [facility] Comment on above: Order Comment: Speci men Type: BLOOD SPECIMENOrdering Facility: [facility] Address: [address] [place] [address] Performed By: #### 5 7021-8 ####[facility] LABCLIA [id number] [place] [address] [place] Hematocrit (Bld) [Volume fraction] 33.7 % Low 39.0-51.0 [facility] Comment on above: Order Comment: Speci men Type: BLOOD SPECIMENOrdering Facility: [facility] Address: [address] [place] [address] Performed By: #### 5 7021-8 ####[facility] LABCLIA [id number] [place] [address] [place] Hemoglobin (Bld) [Mass/Vol] 11.8 g/dL Low 13.0-17.0 [facility] Comment on above: Order Comment: Speci men Type: BLOOD SPECIMENOrdering Facility: [facility] Address: [address] [place] [address] Performed By: #### 5 7021-8 ####[facility] LABCLIA [id number] [place] [address] [place] Immature granulocytes (Bld) [#/Vol] Normal [facility] Comment on above: Order Comment: Speci men Type: BLOOD SPECIMENOrdering Facility: [facility] Address: [address] [place] [address] Result Comment: Too Few Cells To Do Differential. Performed By: #### 5 7021-8 ####[facility] LABCLIA [id number] [place] [address] [place] Immature granulocytes/100 WBC (Bld) Normal [facility] Comment on above: Order Comment: Speci men Type: BLOOD SPECIMENOrdering Facility: [facility] Address: [address] [place] [address] Result Comment: Too Few Cells To Do Differential. Performed By: #### 5 7021-8 ####[facility] LABCLIA [id number] [place] [address] [place] Lymphocytes (Bld) [#/Vol] Normal [facility] Comment on above: Order Comment: Speci men Type: BLOOD SPECIMENOrdering Facility: [facility] Address: [address] [place] [address] Result Comment: Too Few Cells To Do Differential. Performed By: #### 5 7021-8 ####[facility] LABCLIA [id number] [place] [id number] [place] Lymphocytes/100 WBC (Bld) Normal [facility] Comment on above: Order Comment: Speci men Type: BLOOD SPECIMENOrdering Facility: [facility] Address: [address] [place], [place] [address] Result Comment: Too Few Cells To Do Differential. Performed By: #### 5 7021-8 ####[facility] LABCLIA [id number] [place] [address] [place] MCH (RBC) [Entitic mass] 31.1 pg Normal 26.0-34.0 [facility] Comment on above: Order Comment: Speci men Type: BLOOD SPECIMENOrdering Facility: [facility] Address: [address] [place] [address] Performed By: #### 5 7021-8 ####[facility] LABIA [id number] [place] [address] [place] MCHC (RBC) [Mass/Vol] 35.0 g/dL Normal 30.5-36.0 [facility] Comment on above: Order Comment: Speci men Type: BLOOD SPECIMENOrdering Facility: [facility] Address: [address] [place] [address] Performed By: #### 5 7021-8 ####[facility] LABIA [id number] [place] [address] [place] MCV (RBC) [Entitic vol] 88.9 fL Normal 80.0-100.0 [facility] Comment on above: Order Comment: Speci men Type: BLOOD SPECIMENOrdering Facility: [facility] Address: [address] [place] [address] Performed By: #### 5 7021-8 ####[facility] LABIA [id number] [place] [address] [place] Monocytes (Bld) [#/Vol] Normal [facility] Comment on above: Order Comment: Speci men Type: BLOOD SPECIMENOrdering Facility: [facility] Address: [address] [place] [address] Result Comment: Too Few Cells To Do Differential. Performed By: #### 5 7021-8 ####[facility] LABCLIA [id number] [place] [address] [place] Monocytes/100 WBC (Bld) Normal [facility] Comment on above: Order Comment: Speci men Type: BLOOD SPECIMENOrdering Facility: [facility] Address: [address] [place] [address] Result Comment: Too Few Cells To Do Differential. Performed By: #### 5 7021-8 ####[facility] LABCLIA [id number] [place] [address] [place] Neutrophils (Bld) [#/Vol] Normal [facility] Comment on above: Order Comment: Speci men Type: BLOOD SPECIMENOrdering Facility: [facility] Address: [address] [place] [address] Result Comment: Too Few Cells To Do Differential. Performed By: #### 5 7021-8 ####[facility] LABCLIA [id number] [place] [address] [place] Neutrophils/100 WBC (Bld) Normal [facility] Comment on above: Order Comment: Speci men Type: BLOOD SPECIMENOrdering Facility: [facility] Address: [address] [place] [address] Result Comment: Too Few Cells To Do Differential. Performed By: #### 5 7021-8 ####[facility] LABCLIA [id number] [place] [address] [place] Nucleated RBC (Bld) [#/Vol] 10*3/uL Normal <0.01 [facility] Comment on above: Order Comment: Speci men Type: BLOOD SPECIMENOrdering Facility: [facility] Address: [address] [place] [address] Performed By: #### 5 7021-8 ####[facility] LABCLIA [id number] [place] [address] [place] Nucleated RBC/100 WBC (Bld) [Ratio] 0.0 /100 WBC Normal [facility] Comment on above: Order Comment: Speci men Type: BLOOD SPECIMENOrdering Facility: [facility] Address: [address] [place] [address] Performed By: #### 5 7021-8 ####[facility] LABCLIA [id number] [place] [address] [place] Platelet mean volume (Bld) [Entitic vol] 9.5 fL Normal 9.0-12.7 [facility] Comment on above: Order Comment: Speci men Type: BLOOD SPECIMENOrdering Facility: [facility] Address: [address] [place] [address] Performed By: #### 5 7021-8 ####[facility] LABIA [id number] [place] [address] [place] Platelets (Bld) [#/Vol] 59 10*3/uL Low 150-400 [facility] Comment on above: Order Comment: Speci men Type: BLOOD SPECIMENOrdering Facility: [facility] Address: [address] [place] [address] Result Comment: No c lot detected. Performed By: #### 5 7021-8 ####[facility] LABIA [id number] [place] [address] [place] RBC (Bld) [#/Vol] 3.79 10*6/uL Low 4.20-6.00 [facility] Comment on above: Order Comment: Speci men Type: BLOOD SPECIMENOrdering Facility: [facility] Address: [address] [place] [address] Performed By: #### 5 7021-8 ####[facility] LABIA [id number] [place] [address] [place] WBC (Bld) [#/Vol] 0.21 10*3/uL Low 3.70-11.00 [facility] Comment on above: Order Comment: Speci men Type: BLOOD SPECIMENOrdering Facility: [facility] Address: [address] [place] [address] Result Comment: No c lot detected. Too Few Cells To Do Differential Performed By: #### 5 7021-8 ####[facility] LABCLIA [id number] [address] [address] [place] CRP SerPl-mCncon 04-10-2024 CRP [Mass/Vol] 5.5 mg/dL High <0.9 [facility] Comment on above: Order Comment: Speci men Type: BLOOD SPECIMENOrdering Facility: [facility] Address: [address] [place] [address] Performed By: #### 1 988-5, 04329-1, 2777-1, 3084-1, 2276-4 ####[facility] LABCLIA [id number] [place] [address] [place] Comprehensive metabolic 2000 panelon 04-10-2024 Albumin [Mass/Vol] 3.5 g/dL Low 3.9-4.9 [facility] Comment on above: Order Comment: Speci men Type: BLOOD SPECIMENOrdering Facility: [facility] Address: [address] [place] [address] Performed By: #### 2 4323-8, 2531-0 ####[facility] LABCLIA [id number] [place] [address] [place] ALP [Catalytic activity/Vol] 134 U/L High 38-113 [facility] Comment on above: Order Comment: Speci men Type: BLOOD SPECIMENOrdering Facility: [facility] Address: [address] [place] [address] Performed By: #### 2 4323-8, 2-0 ####[facility] LABCLIA [id number] [place] [id number] [place] ALT [Catalytic activity/Vol] 15 U/L Normal 10-54 [facility] Comment on above: Order Comment: Speci men Type: BLOOD SPECIMENOrdering Facility: [facility] Address: [address] [place] [address] Performed By: #### 2 4323-8, 2532-0 ####[facility] LABCLIA [id number] [place] [address] [place] Anion gap [Moles/Vol] 12 mmol/L Normal 8-15 [facility] Comment on above: Order Comment: Speci men Type: BLOOD SPECIMENOrdering Facility: [facility] Address: [address] [place] [address] Performed By: #### 2 4323-8, 2531-0 ####[facility] LABCLIA [id number] [place] [address] [place] AST [Catalytic activity/Vol] 11 U/L Low 14-40 [facility] Comment on above: Order Comment: Speci men Type: BLOOD SPECIMENOrdering Facility: [facility] Address: [address] [place] [address] Performed By: #### 2 4323-8, 2-0 ####[facility] LABCLIA [id number] [place] [address] [place] Bilirubin [Mass/Vol] 0.4 mg/dL Normal 0.2-1.3 [facility] Comment on above: Order Comment: Speci men Type: BLOOD SPECIMENOrdering Facility: [facility] Address: [address] [place] [address] Performed By: #### 2 4323-8, 2532-0 ####[facility] LABCLIA [id number] [place] [address] [place] Calcium [Mass/Vol] 8.4 mg/dL Low 8.5-10.2 [facility] Comment on above: Order Comment: Speci men Type: BLOOD SPECIMENOrdering Facility: [facility] Address: [address] [place] [address] Performed By: #### 2 4323-8, 2532-0 ####[facility] LABCLIA [id number] [place] [id number] [place] Chloride [Moles/Vol] 106 mmol/L Normal 98-107 [facility] Comment on above: Order Comment: Speci men Type: BLOOD SPECIMENOrdering Facility: [facility] Address: [address] [place] [address] Performed By: #### 2 4323-8, 2531-0 ####[facility] LABCLIA [id number] [place] [address] [place] CO2 [Moles/Vol] 21 mmol/L Low 22-30 [facility] Comment on above: Order Comment: Speci men Type: BLOOD SPECIMENOrdering Facility: [facility] Address: [address] [place] [address] Performed By: #### 2 4323-8, 2531-0 ####[facility] LABCLIA [id number] [place] [address] [place] Creatinine [Mass/Vol] 1.25 mg/dL High 0.73-1.22 [facility] Comment on above: Order Comment: Speci men Type: BLOOD SPECIMENOrdering Facility: [facility] Address: [address] [place] [address] Performed By: #### 2 4323-8, 0 ####[facility] LABIA [id number] [place] [address] [place] Creatinine and Glomerular filtration rate.predicted panel (S/P/Bld) 63 mL/min/1.73m??? Normal >=60 [facility] Comment on above: Order Comment: Speci men Type: BLOOD SPECIMENOrdering Facility: [facility] Address: [address] [place] [address] Result Comment: Carol mated Glomerular Filtration Rate [...] GFR. Performed By: #### 2 4323-8, 0 ####[facility] LABCLIA [id number] [address] [address] [place] Glucose [Mass/Vol] 95 mg/dL Normal 74-99 [facility] Comment on above: Order Comment: Speci men Type: BLOOD SPECIMENOrdering Facility: [facility] Address: [address] [place] [address] Result Comment: The [place] [employer] (ADA) provides guidance for cutoff [...] Standards of Medical Care in Diabetes 2016, [place] [employer]. Diabetes Care. 2016.39(Suppl 1). Performed By: #### 2 4323-8, 0 ####[facility] LABIA [id number] [place] [address] [place] Potassium [Moles/Vol] 3.7 mmol/L Normal 3.7-5.1 [facility] Comment on above: Order Comment: Speci men Type: BLOOD SPECIMENOrdering Facility: [facility] Address: [address] [place] [address] Performed By: #### 2 4323-8, 2531-0 ####[facility] LABIA [id number] [place] [id number] [place] Protein [Mass/Vol] 5.7 g/dL Low 6.3-8.0 [facility] Comment on above: Order Comment: Speci men Type: BLOOD SPECIMENOrdering Facility: [facility] Address: [address] [place] [address] Performed By: #### 2 4323-8, 2532-0 ####[facility] LABCLIA [id number] [place] [id number] [place] Sodium [Moles/Vol] 139 mmol/L Normal 136-144 [facility] Comment on above: Order Comment: Speci men Type: BLOOD SPECIMENOrdering Facility: [facility] Address: [address] [place] [address] Performed By: #### 2 4323-8, 2531-0 ####[facility] LABIA [id number] [place] [address] [place] Urea nitrogen [Mass/Vol] 8 mg/dL Low 9-24 [facility] Comment on above: Order Comment: Speci men Type: BLOOD SPECIMENOrdering Facility: [facility] Address: [address] [place] [address] Performed By: #### 2 4323-8, 2531-0 ####[facility] LABIA [id number] [place] [address] [place] Ferritin SerPl-mCncon 2023 Ferritin [Mass/Vol] 649.0 ng/mL High 30.3-565.7 [facility] Comment on above: Order Comment: Speci men Type: BLOOD SPECIMENOrdering Facility: [facility] Address: [address] [place] [address] Performed By: #### 1 988-5, 74657-6, 2777-1, 3084-1, 2276-4 ####[facility] LABIA [id number] [place] [address] [place] LDH SerPl-cCncon 04-10-2024 LDH [Catalytic activity/Vol] 144 U/L Normal 135-225 [facility] Comment on above: Order Comment: Speci men Type: BLOOD SPECIMENOrdering Facility: [facility] Address: [address] [place] [address] Performed By: #### 2 4323-8, 2532-0 ####[facility] LABCLIA [id number] [place] [id number] [place] Magnesium SerPl-mCncon 04-10 Magnesium [Mass/Vol] 1.9 mg/dL Normal 1.7-2.3 [facility] Comment on above: Order Comment: Speci men Type: BLOOD SPECIMENOrdering Facility: [facility] Address: [address] [place] [address] Performed By: #### 1 988-5, 68404-6, 2776-1, 3084-1, 2276-4 ####[facility] LABCLIA [id number] [place] [address] [place] NURSING PROGon 04-10-2024 NURSING PROG Normal [facility] Phosphate SerPl-ncon 04-10 Phosphate [Mass/Vol] 3.3 mg/dL Normal 2.7-4.8 [facility] Comment on above: Order Comment: Speci men Type: BLOOD SPECIMENOrdering Facility: [facility] Address: [address] [place] [address] Performed By: #### 1 988-5, 23432-3, 2776-1, 3084-1, 6-4 ####[facility] LABIA [id number] [place] [address] [place] Urate SerPl-mCncon Urate [Mass/Vol] 1.5 mg/dL Low 4.0-8.1 [facility] Comment on above: Order Comment: Speci men Type: BLOOD SPECIMENOrdering Facility: [facility] Address: [address] [place] [address] Performed By: #### 1 988-5, 38860-1, 2777-1, 3084-1, 2276-4 ####[facility] LABCLIA [id number] [place] [id number] [place] XR CHEST 1V FRONTAL PORTon 0 04-10-2024 XR CHEST 1V FRONTAL PORT Normal [facility] CBC W Auto Differential pane l (Bld)on 04-09-2024 Basophils (Bld) [#/Vol] Normal [facility] Comment on above: Order Comment: Speci men Type: BLOOD SPECIMENOrdering Facility: [facility] Address: [address] [place] [address] Result Comment: Too Few Cells To Do Differential. Performed By: #### 5 7021-8 ####[facility] LABCLIA [id number] [place] [address] [place] Basophils/100 WBC (Bld) Normal [facility] Comment on above: Order Comment: Speci men Type: BLOOD SPECIMENOrdering Facility: [facility] Address: [address] [place] [address] Result Comment: Too Few Cells To Do Differential. Performed By: #### 5 7021-8 ####[facility] LABCLIA [id number] [place] [address] [place] Differential cell count method Nom (Bld) Auto Normal [facility] Comment on above: Order Comment: Speci men Type: BLOOD SPECIMENOrdering Facility: [facility] Address: [address] [place] [address] Performed By: #### 5 7021-8 ####[facility] LABCLIA [id number] [place] [address] [place] Eosinophils (Bld) [#/Vol] Normal [facility] Comment on above: Order Comment: Speci men Type: BLOOD SPECIMENOrdering Facility: [facility] Address: [address] [place] [address] Result Comment: Too Few Cells To Do Differential. Performed By: #### 5 7021-8 ####[facility] LABCLIA [id number] [place] [address] [place] Eosinophils/100 WBC (Bld) Normal [facility] Comment on above: Order Comment: Speci men Type: BLOOD SPECIMENOrdering Facility: [facility] Address: [address] [place] [address] Result Comment: Too Few Cells To Do Differential. Performed By: #### 5 7021-8 ####[facility] LABIA [id number] [place] [address] [place] Erythrocyte distribution width (RBC) [Ratio] 13.4 % Normal 11.5-15.0 [facility] Comment on above: Order Comment: Speci men Type: BLOOD SPECIMENOrdering Facility: [facility] Address: [address] [place] [address] Performed By: #### 5 7021-8 ####[facility] LABIA [id number] [place] [address] [place] Hematocrit (Bld) [Volume fraction] 33.3 % Low 39.0-51.0 [facility] Comment on above: Order Comment: Speci men Type: BLOOD SPECIMENOrdering Facility: [facility] Address: [address] [place] [address] Performed By: #### 5 7021-8 ####[facility] LABIA [id number] [place] [address] [place] Hemoglobin (Bld) [Mass/Vol] 11.3 g/dL Low 13.0-17.0 [facility] Comment on above: Order Comment: Speci men Type: BLOOD SPECIMENOrdering Facility: [facility] Address: [address] [place] [address] Performed By: #### 5 7021-8 ####[facility] LABIA [id number] [place] [address] [place] Immature granulocytes (Bld) [#/Vol] Normal [facility] Comment on above: Order Comment: Speci men Type: BLOOD SPECIMENOrdering Facility: [facility] Address: [address] [place] [address] Result Comment: Too Few Cells To Do Differential. Performed By: #### 5 7021-8 ####[facility] LABCLIA [id number] [place] [address] [place] Immature granulocytes/100 WBC (Bld) Normal [facility] Comment on above: Order Comment: Speci men Type: BLOOD SPECIMENOrdering Facility: [facility] Address: [address] [place] [address] Result Comment: Too Few Cells To Do Differential. Performed By: #### 5 7021-8 ####[facility] LABCLIA [id number] [place] [address] [place] Lymphocytes (Bld) [#/Vol] Normal [facility] Comment on above: Order Comment: Speci men Type: BLOOD SPECIMENOrdering Facility: [facility] Address: [address] [place] [address] Result Comment: Too Few Cells To Do Differential. Performed By: #### 5 7021-8 ####[facility] LABCLIA [id number] [place] [address] [place] Lymphocytes/100 WBC (Bld) Normal [facility] Comment on above: Order Comment: Speci men Type: BLOOD SPECIMENOrdering Facility: [facility] Address: [address] [place] [address] Result Comment: Too Few Cells To Do Differential. Performed By: #### 5 7021-8 ####[facility] LABCLIA [id number] [place] [address] [place] MCH (RBC) [Entitic mass] 30.4 pg Normal 26.0-34.0 [facility] Comment on above: Order Comment: Speci men Type: BLOOD SPECIMENOrdering Facility: [facility] Address: [address] [place] [address] Performed By: #### 5 7021-8 ####[facility] LABCLIA [id number] [place] [id number] [place] MCHC (RBC) [Mass/Vol] 33.9 g/dL Normal 30.5-36.0 [facility] Comment on above: Order Comment: Speci men Type: BLOOD SPECIMENOrdering Facility: [facility] Address: [address] [place] [address] Performed By: #### 5 7021-8 ####[facility] LABCLIA [id number] [place] [address] [place] MCV (RBC) [Entitic vol] 89.5 fL Normal 80.0-100.0 [facility] Comment on above: Order Comment: Speci men Type: BLOOD SPECIMENOrdering Facility: [facility] Address: [address] [place] [address] Performed By: #### 5 7021-8 ####[facility] LABCLIA [id number] [place] [address] [place] Monocytes (Bld) [#/Vol] Normal [facility] Comment on above: Order Comment: Speci men Type: BLOOD SPECIMENOrdering Facility: [facility] Address: [address] [place] [address] Result Comment: Too Few Cells To Do Differential. Performed By: #### 5 7021-8 ####[facility] LABCLIA [id number] [place] [address] [place] Monocytes/100 WBC (Bld) Normal [facility] Comment on above: Order Comment: Speci men Type: BLOOD SPECIMENOrdering Facility: [facility] Address: [address] [place] [address] Result Comment: Too Few Cells To Do Differential. Performed By: #### 5 7021-8 ####[facility] LABCLIA [id number] [place] [address] [place] Neutrophils (Bld) [#/Vol] Normal [facility] Comment on above: Order Comment: Speci men Type: BLOOD SPECIMENOrdering Facility: [facility] Address: [address] [place] [address] Result Comment: Too Few Cells To Do Differential. Performed By: #### 5 7021-8 ####[facility] LABCLIA [id number] [place] [address] [place] Neutrophils/100 WBC (Bld) Normal [facility] Comment on above: Order Comment: Speci men Type: BLOOD SPECIMENOrdering Facility: [facility] Address: [address] [place] [address] Result Comment: Too Few Cells To Do Differential. Performed By: #### 5 7021-8 ####[facility] LABCLIA [id number] [place] [address] [place] Nucleated RBC (Bld) [#/Vol] 10*3/uL Normal <0.01 [facility] Comment on above: Order Comment: Speci men Type: BLOOD SPECIMENOrdering Facility: [facility] Address: [address] [place] [address] Performed By: #### 5 7021-8 ####[facility] LABIA [id number] [place] [address] [place] Nucleated RBC/100 WBC (Bld) [Ratio] 0.0 /100 WBC Normal [facility] Comment on above: Order Comment: Speci men Type: BLOOD SPECIMENOrdering Facility: [facility] Address: [address] [place] [address] Performed By: #### 5 7021-8 ####[facility] LABCLIA [id number] [place] [address] [place] Platelet mean volume (Bld) [Entitic vol] 9.4 fL Normal 9.0-12.7 [facility] Comment on above: Order Comment: Speci men Type: BLOOD SPECIMENOrdering Facility: [facility] Address: [address] [place] [address] Performed By: #### 5 7021-8 ####[facility] LABCLIA [id number] [place] [address] [place] Platelets (Bld) [#/Vol] 81 10*3/uL Low 150-400 [facility] Comment on above: Order Comment: Speci men Type: BLOOD SPECIMENOrdering Facility: [facility] Address: [address] [place] [address] Result Comment: Resu lts checked and verified.No clot detected. Performed By: #### 5 7021-8 ####[facility] LABCLIA [id number] [place] [address] [place] RBC (Bld) [#/Vol] 3.72 10*6/uL Low 4.20-6.00 [facility] Comment on above: Order Comment: Speci men Type: BLOOD SPECIMENOrdering Facility: [facility] Address: [address] [place] [address] Performed By: #### 5 7021-8 ####[facility] LABCLIA [id number] [place] [address] [place] WBC (Bld) [#/Vol] 0.48 10*3/uL Low 3.70-11.00 [facility] Comment on above: Order Comment: Speci men Type: BLOOD SPECIMENOrdering Facility: [facility] Address: [address] [place] [address] Result Comment: Resu lts checked and verified.No clot detected. Performed By: #### 5 7021-8 ####[facility] LABCLIA [id number] [place] [address] [place] CRP SerPl-mCncon 04-09-2024 CRP [Mass/Vol] 11.8 mg/dL High <0.9 [facility] Comment on above: Order Comment: Speci men Type: BLOOD SPECIMENOrdering Facility: [facility] Address: [address] [place] [address] Performed By: #### 2 276-4, 83226-7, 2777-1, 3084-1, 1988-5 ####[facility] LABCLIA [id number] [facility] [address] [place] Comprehensive metabolic 2000 panelon 04-09-2024 Albumin [Mass/Vol] 3.4 g/dL Low 3.9-4.9 [facility] Comment on above: Order Comment: Speci men Type: BLOOD SPECIMENOrdering Facility: [facility] Address: [address] [place] [address] Performed By: #### 2 432-8, 2531-0 ####[facility] LABCLIA [id number] [place] [address] [place] ALP [Catalytic activity/Vol] 140 U/L High 38-113 [facility] Comment on above: Order Comment: Speci men Type: BLOOD SPECIMENOrdering Facility: [facility] Address: [address] [place] [address] Performed By: #### 2 432-8, 2531-0 ####[facility] LABCLIA [id number] [place] [address] [place] ALT [Catalytic activity/Vol] 16 U/L Normal 10-54 [facility] Comment on above: Order Comment: Speci men Type: BLOOD SPECIMENOrdering Facility: [facility] Address: [address] [place] [address] Performed By: #### 2 432-8, 2531-0 ####[facility] LABCLIA [id number] [place] [id number] [place] Anion gap [Moles/Vol] 9 mmol/L Normal 8-15 [facility] Comment on above: Order Comment: Speci men Type: BLOOD SPECIMENOrdering Facility: [facility] Address: [address] [place] [address] Performed By: #### 2 4323-8, 2531-0 ####[facility] LABCLIA [id number] [place] [address] [place] AST [Catalytic activity/Vol] 15 U/L Normal 14-40 [facility] Comment on above: Order Comment: Speci men Type: BLOOD SPECIMENOrdering Facility: [facility] Address: [address] [place] [address] Performed By: #### 2 4323-8, 2532-0 ####[facility] LABCLIA [id number] [place] [address] [place] Bilirubin [Mass/Vol] 0.4 mg/dL Normal 0.2-1.3 [facility] Comment on above: Order Comment: Speci men Type: BLOOD SPECIMENOrdering Facility: [facility] Address: [address] [place] [address] Performed By: #### 2 4323-8, 2532-0 ####[facility] LABCLIA [id number] [place] [address] [place] Calcium [Mass/Vol] 8.4 mg/dL Low 8.5-10.2 [facility] Comment on above: Order Comment: Speci men Type: BLOOD SPECIMENOrdering Facility: [facility] Address: [address] [place] [address] Performed By: #### 2 4323-8, 2532-0 ####[facility] LABCLIA [id number] [place] [address] [place] Chloride [Moles/Vol] 108 mmol/L High 98-107 [facility] Comment on above: Order Comment: Speci men Type: BLOOD SPECIMENOrdering Facility: [facility] Address: [address] [place] [address] Performed By: #### 2 4323-8, 2532-0 ####[facility] LABCLIA [id number] [place] [address] [place] CO2 [Moles/Vol] 23 mmol/L Normal 22-30 [facility] Comment on above: Order Comment: Speci men Type: BLOOD SPECIMENOrdering Facility: [facility] Address: [address] [place] [address] Performed By: #### 2 4323-8, 0 ####[facility] LABCLIA [id number] [place] [address] [place] Creatinine [Mass/Vol] 1.14 mg/dL Normal 0.73-1.22 [facility] Comment on above: Order Comment: Speci men Type: BLOOD SPECIMENOrdering Facility: [facility] Address: [address] [place] [address] Performed By: #### 2 4323-8, ####[facility] LABIA [id number] [place] [address] [place] Creatinine and Glomerular filtration rate.predicted panel (S/P/Bld) 70 mL/min/1.73m??? Normal >=60 [facility] Comment on above: Order Comment: Speci men Type: BLOOD SPECIMENOrdering Facility: [facility] Address: [address] [place] [address] Result Comment: Carol mated Glomerular Filtration Rate [...] GFR. Performed By: #### 2 4323-8, 0 ####[facility] LABIA [id number] [place] [address] [place] Glucose [Mass/Vol] 94 mg/dL Normal 74-99 [facility] Comment on above: Order Comment: Speci men Type: BLOOD SPECIMENOrdering Facility: [facility] Address: [address] [place] [address] Result Comment: The [place] [employer] (ADA) provides guidance for cutoff [...] Standards of Medical Care in Diabetes 2016, [place] [employer]. Diabetes Care. 2016.39(Suppl 1). Performed By: #### 2 43238, 0 ####[facility] LABCLIA [id number] [place] [address] [place] Potassium [Moles/Vol] 3.9 mmol/L Normal 3.7-5.1 [facility] Comment on above: Order Comment: Speci men Type: BLOOD SPECIMENOrdering Facility: [facility] Address: [address] [place] [address] Performed By: #### 2 4328, ####[facility] LABCLIA [id number] [place] [address] [place] Protein [Mass/Vol] 5.5 g/dL Low 6.3-8.0 [facility] Comment on above: Order Comment: Speci men Type: BLOOD SPECIMENOrdering Facility: [facility] Address: [address] [place] [address] Performed By: #### 2 4328, 0 ####[facility] LABCLIA [id number] [place] [address] [place] Sodium [Moles/Vol] 140 mmol/L Normal 136-144 [facility] Comment on above: Order Comment: Speci men Type: BLOOD SPECIMENOrdering Facility: [facility] Address: [address] [place] [address] Performed By: #### 2 43201-08, 2531-0 ####[facility] LABIA [id number] [address] [address] [place] Urea nitrogen [Mass/Vol] 11 mg/dL Normal 9-24 [facility] Comment on above: Order Comment: Speci men Type: BLOOD SPECIMENOrdering Facility: [facility] Address: [address] [place] [address] Performed By: #### 2 4323-8, 2531-0 ####[facility] LABIA [id number] [place] [id number] [place] Ferritin SerPl-mCncon 2023 Ferritin [Mass/Vol] 522.0 ng/mL Normal 30.3-565.7 [facility] Comment on above: Order Comment: Speci men Type: BLOOD SPECIMENOrdering Facility: [facility] Address: [address] [place] [address] Performed By: #### 2 276-4, 64733-7, 2777-1, 3084-1, 1987- ####[facility] [id number] [place] [id number] [place] LDH SerPl-cCncon 04-09-2024 LDH [Catalytic activity/Vol] 133 U/L Low 135-225 [facility] Comment on above: Order Comment: Speci men Type: BLOOD SPECIMENOrdering Facility: [facility] Address: [address] [place], [place] [address] Performed By: #### 2 4323-8, 0 ####[facility] [id number] [place] [id number] [place] MEDICAL EMERon 04-09-2024 MEDICAL FILOMENA Normal [facility] Magnesium SerPl-mCncon 04-09 Magnesium [Mass/Vol] 2.1 mg/dL Normal 1.7-2.3 [facility] Comment on above: Order Comment: Speci men Type: BLOOD SPECIMENOrdering Facility: [facility] Address: [address] [place], [place] [address] Performed By: #### 2 276-4, 37130-0, 2776-11, 3083-11, 1988-03 ####[facility] LABCLIA [id number] [place] [id number] [place] Phosphate SerPl-mCncon 04-09 Phosphate [Mass/Vol] 2.7 mg/dL Normal 2.7-4.8 [facility] Comment on above: Order Comment: Speci men Type: BLOOD SPECIMENOrdering Facility: [facility] Address: [address] [place] [address] Performed By: #### 2 276-4, , 2776-11, 3083-11, 1988-03 ####[facility] LABCLIA [id number] [place] [address] [place] Urate SerPl-mCncon Urate [Mass/Vol] 1.8 mg/dL Low 4.0-8.1 [facility] Comment on above: Order Comment: Speci men Type: BLOOD SPECIMENOrdering Facility: [facility] Address: [address] [place] [address] Performed By: #### 2 276-4, , 2776-11, 3083-11, 1988-03 ####[facility] LABCLIA [id number] [place] [address] [place] Bacteria Bld Culton 04-08-20 24 Bacteria identified Cx Nom (Bld) CULTURE, BLOOD: No growth 5 days Normal [facility] Comment on above: Performed By: #### 6 00-7 ####[facility] LABCLIA [id number] [place] [address] [place] Bacteria identified Cx Nom (Bld) CULTURE, BLOOD: No growth 5 days Normal [facility] Comment on above: Performed By: #### 6 00-7 ####[facility] LABCLIA [id number] [place] [address] [place] CASE MANAGEMon 04-08-2024 CASE MANAGEM Normal [facility] CBC W Auto Differential pane l (Bld)on 04-08-2024 Basophils (Bld) [#/Vol] 0.00 10*3/uL Normal <0.11 [facility] Comment on above: Order Comment: Speci men Type: BLOOD SPECIMENOrdering Facility: [facility] Address: [address] [place] [address] Performed By: #### 5 7021-8 ####[facility] LABCLIA [id number] [place] [address] [place] Basophils/100 WBC (Bld) 0.0 % Normal [facility] Comment on above: Order Comment: Speci men Type: BLOOD SPECIMENOrdering Facility: [facility] Address: [address] [place] [address] Performed By: #### 5 7021-8 ####[facility] LABCLIA [id number] [place] [address] [place] Differential cell count method Nom (Bld) Manual Normal [facility] Comment on above: Order Comment: Speci men Type: BLOOD SPECIMENOrdering Facility: [facility] Address: [address] [place] [address] Performed By: #### 5 7021-8 ####[facility] LABCLIA [id number] [place] [address] [place] Eosinophils (Bld) [#/Vol] 0.03 10*3/uL Normal <0.46 [facility] Comment on above: Order Comment: Speci men Type: BLOOD SPECIMENOrdering Facility: [facility] Address: [address] [place] [address] Performed By: #### 5 7021-8 ####[facility] LABCLIA [id number] [address] [id number] [address] [place] Eosinophils/100 WBC (Bld) 0.9 % Normal [facility] Comment on above: Order Comment: Speci men Type: BLOOD SPECIMENOrdering Facility: [facility] Address: [address] [place] [address] Performed By: #### 5 7021-8 ####[facility] LABCLIA [id number] [place] [address] [place] Erythrocyte distribution width (RBC) [Ratio] 13.4 % Normal 11.5-15.0 [facility] Comment on above: Order Comment: Speci men Type: BLOOD SPECIMENOrdering Facility: [facility] Address: [address] [place] [address] Performed By: #### 5 7021-8 ####[facility] LABCLIA [id number] [place] [address] [place] Hematocrit (Bld) [Volume fraction] 35.3 % Low 39.0-51.0 [facility] Comment on above: Order Comment: Speci men Type: BLOOD SPECIMENOrdering Facility: [facility] Address: [address] [place] [address] Performed By: #### 5 7021-8 ####[facility] LABCLIA [id number] [place] [address] [place] Hemoglobin (Bld) [Mass/Vol] 12.2 g/dL Low 13.0-17.0 [facility] Comment on above: Order Comment: Speci men Type: BLOOD SPECIMENOrdering Facility: [facility] Address: [address] [place] [address] Performed By: #### 5 7021-8 ####[facility] LABCLIA [id number] [place] [address] [place] Lymphocytes (Bld) [#/Vol] 0.00 10*3/uL Low 1.00-4.00 [facility] Comment on above: Order Comment: Speci men Type: BLOOD SPECIMENOrdering Facility: [facility] Address: [address] [place] [address] Performed By: #### 5 7021-8 ####[facility] LABCLIA [id number] [place] [address] [place] Lymphocytes/100 WBC (Bld) 0.0 % Normal [facility] Comment on above: Order Comment: Speci men Type: BLOOD SPECIMENOrdering Facility: [facility] Address: [address] [place] [address] Performed By: #### 5 7021-8 ####[facility] LABCLIA [id number] [place] [address] [place] MCH (RBC) [Entitic mass] 30.5 pg Normal 26.0-34.0 [facility] Comment on above: Order Comment: Speci men Type: BLOOD SPECIMENOrdering Facility: [facility] Address: [address] [place] [address] Performed By: #### 5 7021-8 ####[facility] LABIA [id number] [place] [address] [place] MCHC (RBC) [Mass/Vol] 34.6 g/dL Normal 30.5-36.0 [facility] Comment on above: Order Comment: Speci men Type: BLOOD SPECIMENOrdering Facility: [facility] Address: [address] [place] [address] Performed By: #### 5 7021-8 ####[facility] LABCLIA [id number] [place] [address] [place] MCV (RBC) [Entitic vol] 88.3 fL Normal 80.0-100.0 [facility] Comment on above: Order Comment: Speci men Type: BLOOD SPECIMENOrdering Facility: [facility] Address: [address] [place] [address] Performed By: #### 5 7021-8 ####[facility] LABCLIA [id number] [place] [address] [place] Monocytes (Bld) [#/Vol] 0.00 10*3/uL Normal <0.87 [facility] Comment on above: Order Comment: Speci men Type: BLOOD SPECIMENOrdering Facility: [facility] Address: [address] [place] [address] Performed By: #### 5 7021-8 ####[facility] LABCLIA [id number] [place] [address] [place] Monocytes/100 WBC (Bld) 0.0 % Normal [facility] Comment on above: Order Comment: Speci men Type: BLOOD SPECIMENOrdering Facility: [facility] Address: [address] [place] [address] Performed By: #### 5 7021-8 ####[facility] LABCLIA [id number] [place] [address] [place] Neutrophils (Bld) [#/Vol] 3.21 10*3/uL Normal 1.45-7.50 [facility] Comment on above: Order Comment: Speci men Type: BLOOD SPECIMENOrdering Facility: [facility] [facility] Address: [address] [place] [address] Performed By: #### 5 7021-8 ####[facility] LABCLIA [id number] [place] [address] [place] Neutrophils/100 WBC (Bld) 99.1 % Normal [facility] Comment on above: Order Comment: Speci men Type: BLOOD SPECIMENOrdering Facility: [facility] Address: [address] [place] [address] Performed By: #### 5 7021-8 ####[facility] LABCLIA [id number] [place] [address] [place] Nucleated RBC (Bld) [#/Vol] 10*3/uL Normal <0.01 [facility] Comment on above: Order Comment: Speci men Type: BLOOD SPECIMENOrdering Facility: [facility] Address: [address] [place] [address] Performed By: #### 5 7021-8 ####[facility] LABCLIA [id number] [place] [address] [place] Nucleated RBC/100 WBC (Bld) [Ratio] 0.0 /100 WBC Normal [facility] Comment on above: Order Comment: Speci men Type: BLOOD SPECIMENOrdering Facility: [facility] Address: [address] [place] [address] Performed By: #### 5 7021-8 ####[facility] LABCLIA [id number] [place] [address] [place] Ovalocytes LM Ql (Bld) Few Normal [facility] Comment on above: Order Comment: Speci men Type: BLOOD SPECIMENOrdering Facility: [facility] Address: [address] [place] [address] Performed By: #### 5 7021-8 ####[facility] LABCLIA [id number] [place] [address] [place] Platelet mean volume (Bld) [Entitic vol] 9.4 fL Normal 9.0-12.7 [facility] Comment on above: Order Comment: Speci men Type: BLOOD SPECIMENOrdering Facility: [facility] Address: [address] [place] [address] Performed By: #### 5 7021-8 ####[facility] LABCLIA [id number] [place] [address] [place] Platelets (Bld) [#/Vol] 97 10*3/uL Low 150-400 [facility] Comment on above: Order Comment: Speci men Type: BLOOD SPECIMENOrdering Facility: [facility] Address: [address] [place] [address] Result Comment: No c lot detected. Performed By: #### 5 7021-8 ####[facility] LABCLIA [id number] [place] [address] [place] Platelets Estimate (Bld) [#/Vol] Decreased Normal [facility] Comment on above: Order Comment: Speci men Type: BLOOD SPECIMENOrdering Facility: [facility] Address: [address] [place] [address] Performed By: #### 5 7021-8 ####[facility] LABIA [id number] [place] [address] [place] RBC (Bld) [#/Vol] 4.00 10*6/uL Low 4.20-6.00 [facility] Comment on above: Order Comment: Speci men Type: BLOOD SPECIMENOrdering Facility: [facility] Address: [address] [place] [address] Performed By: #### 5 7021-8 ####[facility] [id number] [place] [address] [place] RED CELL MORPH Reviewed: see result s of individual morphologies Normal [facility] Comment on above: Order Comment: Speci men Type: BLOOD SPECIMENOrdering Facility: [facility] Address: [address] [place] [address] Performed By: #### 5 7021-8 ####[facility] LABIA [id number] [place] [address] [place] WBC (Bld) [#/Vol] 3.24 10*3/uL Low 3.70-11.00 [facility] Comment on above: Order Comment: Speci men Type: BLOOD SPECIMENOrdering Facility: [facility] Address: [address] [place] [address] Performed By: #### 5 7021-8 ####[facility] LABIA [id number] [place] [address] [place] CRP SerPl-ncon 04-08-2024 CRP [Mass/Vol] 5.6 mg/dL High <0.9 [facility] Comment on above: Order Comment: Speci men Type: BLOOD SPECIMENOrdering Facility: [facility] Address: [address] [place] [address] Performed By: #### 1 988-5, 21557-8, 3084-1, 2777-1, 2276-4 ####[facility] LABCLIA [id number] [place] [address] [place] Comprehensive metabolic 2000 panelon 04-08-2024 Albumin [Mass/Vol] 3.9 g/dL Normal 3.9-4.9 [facility] Comment on above: Order Comment: Speci men Type: BLOOD SPECIMENOrdering Facility: [facility] Address: [address] [place] [address] Performed By: #### 2 4323-8, 2532-0 ####[facility] LABCLIA [id number] [place] [address] [place] ALP [Catalytic activity/Vol] 172 U/L High 38-113 [facility] Comment on above: Order Comment: Speci men Type: BLOOD SPECIMENOrdering Facility: [facility] Address: [address] [place] [address] Performed By: #### 2 4323-8, 2532-0 ####[facility] LABCLIA [id number] [place] [address] [place] ALT [Catalytic activity/Vol] 15 U/L Normal 10-54 [facility] Comment on above: Order Comment: Speci men Type: BLOOD SPECIMENOrdering Facility: [facility] Address: [address] [place] [address] Performed By: #### 2 4323-8, 2532-0 ####[facility] LABCLIA [id number] [place] [id number] [place] Anion gap [Moles/Vol] 10 mmol/L Normal 8-15 [facility] Comment on above: Order Comment: Speci men Type: BLOOD SPECIMENOrdering Facility: [facility] Address: [address] [place] [id number] Performed By: #### 2 4323-8, 2531-0 ####[facility] LABCLIA [id number] [place] [id number] [place] AST [Catalytic activity/Vol] 16 U/L Normal 14-40 [facility] Comment on above: Order Comment: Speci men Type: BLOOD SPECIMENOrdering Facility: [facility] Address: [address] [place] [address] Performed By: #### 2 4323-8, 2531-0 ####[facility] LABCLIA [id number] [place] [address] [place] Bilirubin [Mass/Vol] 0.7 mg/dL Normal 0.2-1.3 [facility] Comment on above: Order Comment: Speci men Type: BLOOD SPECIMENOrdering Facility: [facility] Address: [address] [place] [address] Performed By: #### 2 4323-8, 2531-0 ####[facility] LABCLIA [id number] [place] [address] [place] Calcium [Mass/Vol] 8.6 mg/dL Normal 8.5-10.2 [facility] Comment on above: Order Comment: Speci men Type: BLOOD SPECIMENOrdering Facility: [facility] Address: [address] [place] [address] Performed By: #### 2 4323-8, 2531-0 ####[facility] LABCLIA [id number] [place] [id number] [place] Chloride [Moles/Vol] 102 mmol/L Normal 98-107 [facility] Comment on above: Order Comment: Speci men Type: BLOOD SPECIMENOrdering Facility: [facility] Address: [address] [place], [place] [address] Performed By: #### 2 4323-8, 2532-0 ####[facility] LABIA [id number] [place] [address] [place] CO2 [Moles/Vol] 22 mmol/L Normal 22-30 [facility] Comment on above: Order Comment: Speci men Type: BLOOD SPECIMENOrdering Facility: [facility] Address: [address] [place] [address] Performed By: #### 2 43238, 0 ####[facility] LABIA [id number] [place] [address] [place] Creatinine [Mass/Vol] 1.02 mg/dL Normal 0.73-1.22 [facility] Comment on above: Order Comment: Speci men Type: BLOOD SPECIMENOrdering Facility: [facility] Address: [address] [place] [address] Performed By: #### 2 4328, 0 ####[facility] [id number] [place] [address] [place] Creatinine and Glomerular filtration rate.predicted panel (S/P/Bld) 81 mL/min/1.73m??? Normal >=60 [facility] Comment on above: Order Comment: Speci men Type: BLOOD SPECIMENOrdering Facility: [facility] Address: [address] [place] [address] Result Comment: Carol mated Glomerular Filtration Rate [...] GFR. Performed By: #### 2 4323-8, 0 ####[facility] LABIA [id number] [place] [address] [place] Glucose [Mass/Vol] 96 mg/dL Normal 74-99 [facility] Comment on above: Order Comment: Sara randle Type: BLOOD SPECIMENOrdering Facility: [facility] Address: [address] [place] [address] Result Comment: The [place] [employer] (ADA) provides guidance for cutoff [...] Standards of Medical Care in Diabetes 2016, [place] [employer]. Diabetes Care. 2016.39(Suppl 1). Performed By: #### 2 4323-8, 0 ####[facility] LABCLIA [id number] [place] [address] [place] Potassium [Moles/Vol] 3.8 mmol/L Normal 3.7-5.1 [facility] Comment on above: Order Comment: Sara randle Type: BLOOD SPECIMENOrdering Facility: [facility] Address: [address] [place] [address] Performed By: #### 2 4323-8, 0 ####[facility] LABCLIA [id number] [place] [address] [place] Protein [Mass/Vol] 5.8 g/dL Low 6.3-8.0 [facility] Comment on above: Order Comment: Sara randle Type: BLOOD SPECIMENOrdering Facility: [facility] Address: [address] [place] [address] Performed By: #### 2 4323-8, 2531-0 ####[facility] LABCLIA [id number] [place] [address] [place] Sodium [Moles/Vol] 134 mmol/L Low 136-144 [facility] Comment on above: Order Comment: Speci men Type: BLOOD SPECIMENOrdering Facility: [facility] Address: [address] [place] [address] Performed By: #### 2 4323-8, 2531-0 ####[facility] LABCLIA [id number] [place] [address] [place] Urea nitrogen [Mass/Vol] 12 mg/dL Normal 9-24 [facility] Comment on above: Order Comment: Speci men Type: BLOOD SPECIMENOrdering Facility: [facility] Address: [address] [place] [address] Performed By: #### 2 4323-8, 2531-0 ####[facility] LABIA [id number] [place] [address] [place] Ferritin SerPl-mCncon 2023 Ferritin [Mass/Vol] 433.0 ng/mL Normal 30.3-565.7 [facility] Comment on above: Order Comment: Speci men Type: BLOOD SPECIMENOrdering Facility: [facility] Address: [address] [place] [address] Performed By: #### 1 988-5, 39609-1, 3084-1, 2777-1, 2276-4 ####[facility] LABCLIA [id number] [place] [address] [place] LDH SerPl-cCncon 04-08-2024 LDH [Catalytic activity/Vol] 167 U/L Normal 135-225 [facility] Comment on above: Order Comment: Speci men Type: BLOOD SPECIMENOrdering Facility: [facility] Address: [address] [place] [address] Performed By: #### 2 4323-8, 2531-0 ####[facility] LABCLIA [id number] [place] [address] [place] Magnesium SerPl-mCncon 04-08 Magnesium [Mass/Vol] 1.9 mg/dL Normal 1.7-2.3 [facility] Comment on above: Order Comment: Speci men Type: BLOOD SPECIMENOrdering Facility: [facility] Address: [address] [place] [address] Performed By: #### 1 988-5, 65571-0, 3084-1, 2777-1, 2276-4 ####[facility] LABCLIA [id number] [place] [id number] [place] NURSING PROGon 04-08-2024 NURSING PROG Normal [facility] Phosphate SerPl-mCncon 04-08 Phosphate [Mass/Vol] 3.0 mg/dL Normal 2.7-4.8 [facility] Comment on above: Order Comment: Speci men Type: BLOOD SPECIMENOrdering Facility: [facility] Address: [address] [place] [address] Performed By: #### 1 988-5, 88840-1, 3084-1, 2777-1, 2276-4 ####[facility] LABCLIA [id number] [place] [id number] [place] SEPSIS LACTATEon 04-08-2024 Lactate [Moles/Vol] 0.9 mmol/L Normal <=2.0 [facility] Comment on above: Order Comment: Speci men Type: BLOOD SPECIMENOrdering Facility: [facility] Address: [address] [place] [address] Performed By: #### S LACT ####[facility] LABCLIA [id number] [place] [id number] [place] SOCIAL WORKon 04-08-2024 SOCIAL WORK Normal [facility] TYPE + SCREENon 04-08-2024 ABO B Normal [facility] Comment on above: Order Comment: Speci men Type: BLOOD SPECIMENOrdering Facility: [facility] Address: [address] [place] [address] Performed By: #### T SCR ####[facility] BANKCLIA [id number] [address] STATES [facility] HISTORICAL AB SCR STATUS Negative Normal [facility] Comment on above: Order Comment: Speci men Type: BLOOD SPECIMENOrdering Facility: [facility] Address: [address] [place] [address] Performed By: #### T SCR ####[facility]LO[facility] BANKCLIA [id number] [address] [place] Rh Nom (Bld) Negative Normal [facility] Comment on above: Order Comment: Speci men Type: BLOOD SPECIMENOrdering Facility: [facility] Address: [address] [place] [address] Performed By: #### T SCR ####CC [facility] BLOOD BANKCLIA [id number] [address] STATES OF [facility] TYPE AND SCREEN EXPIRATION 04/11/2024 23:59 Normal [facility] Comment on above: Order Comment: Speci men Type: BLOOD SPECIMENOrdering Facility: [facility] Address: [address] [place] [address] Performed By: #### T SCR ####[facility] BLOOD BANKCLIA [id number] [place] [address] [place] Urate SerPl-mCncon Urate [Mass/Vol] 3.1 mg/dL Low 4.0-8.1 [facility] Comment on above: Order Comment: Speci men Type: BLOOD SPECIMENOrdering Facility: [facility] Address: [address] [place] [address] Performed By: #### 1 988-5, 50430-4, 3084-1, 2777-1, 2276-4 ####[facility] LABCLIA [id number] [place] [address] [place] Urinalysis complete panel (U )on 04-08-2024 Bacteria LM.HPF (Urine sed) [#/Area] Negative Normal Negative [facility] Comment on above: Order Comment: Speci men Type: URINE SPECIMENOrdering Facility: [facility] Address: [address] [place] [address] Performed By: #### 2 4356-8 ####[facility] LABCLIA [id number] [place] [address] [place] Bilirubin Ql (U) Negative Normal Negative [facility] Comment on above: Order Comment: Speci men Type: URINE SPECIMENOrdering Facility: [facility] Address: [address] [place] [address] Performed By: #### 2 4356-8 ####[facility] LABCLIA [id number] [place] [address] [place] Clarity (Unsp spec) Clear Normal Clear [facility] Comment on above: Order Comment: Speci men Type: URINE SPECIMENOrdering Facility: [facility] Address: [address] [place] [address] Performed By: #### 2 4356-8 ####[facility] LABCLIA [id number] [place] [address] [place] Color (U) Yellow Normal Yellow [facility] Comment on above: Order Comment: Speci men Type: URINE SPECIMENOrdering Facility: [facility] Address: [address] [place] [address] Performed By: #### 2 4356-8 ####[facility] LABCLIA [id number] [place] [address] [place] Epithelial cells LM.HPF (Urine sed) [#/Area] None Seen Normal [facility] Comment on above: Order Comment: Speci men Type: URINE SPECIMENOrdering Facility: [facility] Address: [address] [place] [address] Performed By: #### 2 4356-8 ####[facility] LABCLIA [id number] [place] [address] [place] Glucose Test strip (U) [Mass/Vol] Negative Normal Negative [facility] Comment on above: Order Comment: Speci men Type: URINE SPECIMENOrdering Facility: [facility] Address: [address] [place] [address] Performed By: #### 2 4356-8 ####[facility] LABCLIA [id number] [place] [address] [place] Hemoglobin Ql (U) Negative Normal Negative [facility] Comment on above: Order Comment: Speci men Type: URINE SPECIMENOrdering Facility: [facility] Address: [address] [place] [address] Performed By: #### 2 4356-8 ####[facility] LABCLIA [id number] [place] [address] [place] Hyaline casts (Urine sed) [#/Area] 0 /[LPF] Normal 0 /LPF [facility] Comment on above: Order Comment: Speci men Type: URINE SPECIMENOrdering Facility: [facility] Address: [address] [place] [address] Performed By: #### 2 4356-8 ####[facility] LABCLIA [id number] [place] [address] [place] Ketones Ql (U) Negative Normal Negative [facility] Comment on above: Order Comment: Speci men Type: URINE SPECIMENOrdering Facility: [facility] Address: [address] [place] [address] Performed By: #### 2 4356-8 ####[facility] LABCLIA [id number] [place] [address] [place] Leukocyte esterase Test strip Ql (U) Negative Normal Negative [facility] Comment on above: Order Comment: Speci men Type: URINE SPECIMENOrdering Facility: [facility] Address: [address] [place] [address] Performed By: #### 2 4356-8 ####[facility] LABCLIA [id number] [place] [address] [place] Nitrite Ql (U) Negative Normal Negative [facility] Comment on above: Order Comment: Speci men Type: URINE SPECIMENOrdering Facility: [facility] Address: [address] [place] [address] Performed By: #### 2 4356-8 ####[facility] LABCLIA [id number] [place] [address] [place] pH (U) 5.5 [pH] Normal <8.5 [facility] Comment on above: Order Comment: Speci men Type: URINE SPECIMENOrdering Facility: [facility] Address: [address] [place] [address] Performed By: #### 2 4356-8 ####[facility] LABIA [id number] [place] [address] [place] Protein (U) [Mass/Vol] Negative Normal Negative [facility] Comment on above: Order Comment: Speci men Type: URINE SPECIMENOrdering Facility: [facility] Address: [address] [place] [address] Performed By: #### 2 4356-8 ####[facility] LABIA [id number] [place] [address] [place] RBC LM.HPF (Urine sed) [#/Area] 0-2 /HPF Normal 0-2 /HPF [facility] Comment on above: Order Comment: Speci men Type: URINE SPECIMENOrdering Facility: [facility] Address: [address] [place] [address] Performed By: #### 2 4356-8 ####[facility] LABIA [id number] [place] [address] [place] Specific gravity (U) [Rel density] 1.021 Normal 1.005-1.03 0 [facility] Comment on above: Order Comment: Speci men Type: URINE SPECIMENOrdering Facility: [facility] Address: [address] [place] [address] Performed By: #### 2 4356-8 ####[facility] LABCLIA [id number] [place] [address] [place] Urobilinogen Ql (U) 0.2 EU/dL Normal 0.2-1.0 EU/dL [facility] Comment on above: Order Comment: Speci men Type: URINE SPECIMENOrdering Facility: [facility] Address: [address] [place] [address] Performed By: #### 2 4356-8 ####[facility] LABCLIA [id number] [place] [address] [place] WBC LM.HPF (Urine sed) [#/Area] 0-5 /HPF Normal 0-5 /HPF [facility] Comment on above: Order Comment: Speci men Type: URINE SPECIMENOrdering Facility: [facility] Address: [address] [place] [address] Performed By: #### 2 4356-8 ####[facility] LABIA [id number] [place] [address] [place] XR CHEST 1V FRONTAL PORTon 0 04-08-2024 XR CHEST 1V FRONTAL PORT Normal [facility] ALLIED HEALTHon 04-07-2024 ALLIED HEALTH Normal [facility] CASE MGT INIT ASSESon 2023 CASE MGT INIT ASSES Normal [facility] CBC W Auto Differential pane l (Bld)on 04-07-2024 Basophils (Bld) [#/Vol] 10*3/uL Normal <0.11 [facility] Comment on above: Order Comment: Speci men Type: BLOOD SPECIMENOrdering Facility: [facility] Address: [address] [place] [address] Performed By: #### 5 7021-8 ####[facility] LABCLIA [id number] [place] [address] [place] Basophils/100 WBC (Bld) 0.0 % Normal [facility] Comment on above: Order Comment: Speci men Type: BLOOD SPECIMENOrdering Facility: [facility] Address: [address] [place] [address] Performed By: #### 5 7021-8 ####[facility] LABCLIA [id number] [place] [address] [place] Differential cell count method Nom (Bld) Auto Normal [facility] Comment on above: Order Comment: Speci men Type: BLOOD SPECIMENOrdering Facility: [facility] Address: [address] [place] [address] Performed By: #### 5 7021-8 ####[facility] LABCLIA [id number] [place] [address] [place] Eosinophils (Bld) [#/Vol] 0.06 10*3/uL Normal <0.46 [facility] Comment on above: Order Comment: Speci men Type: BLOOD SPECIMENOrdering Facility: [facility] Address: [address] [place] [address] Performed By: #### 5 7021-8 ####[facility] LABCLIA [id number] [place] [address] [place] Eosinophils/100 WBC (Bld) 2.1 % Normal [facility] Comment on above: Order Comment: Speci men Type: BLOOD SPECIMENOrdering Facility: [facility] Address: [address] [place] [address] Performed By: #### 5 7021-8 ####[facility] LABCLIA [id number] [place] [address] [place] Erythrocyte distribution width (RBC) [Ratio] 13.5 % Normal 11.5-15.0 [facility] Comment on above: Order Comment: Speci men Type: BLOOD SPECIMENOrdering Facility: [facility] Address: [address] [place] [address] Performed By: #### 5 7021-8 ####[facility] LABCLIA [id number] [place] [address] [place] Hematocrit (Bld) [Volume fraction] 35.4 % Low 39.0-51.0 [facility] Comment on above: Order Comment: Speci men Type: BLOOD SPECIMENOrdering Facility: [facility] Address: [address] [place] [address] Performed By: #### 5 7021-8 ####[facility] [facility] [id number] [place] [address] [place] Hemoglobin (Bld) [Mass/Vol] 12.0 g/dL Low 13.0-17.0 [facility] Comment on above: Order Comment: Speci men Type: BLOOD SPECIMENOrdering Facility: [facility] Address: [address] [place] [address] Performed By: #### 5 7021-8 ####[facility] LABIA [id number] [place] [address] [place] Immature granulocytes (Bld) [#/Vol] 10*3/uL Normal <0.10 [facility] Comment on above: Order Comment: Speci men Type: BLOOD SPECIMENOrdering Facility: [facility] Address: [address] [place] [address] Performed By: #### 5 7021-8 ####[facility] LABCLIA [id number] [place] [address] [place] Immature granulocytes/100 WBC (Bld) 0.7 % Normal [facility] Comment on above: Order Comment: Speci men Type: BLOOD SPECIMENOrdering Facility: [facility] Address: [address] [place] [address] Performed By: #### 5 7021-8 ####[facility] LABCLIA [id number] [place] [address] [place] Lymphocytes (Bld) [#/Vol] 10*3/uL Low 1.00-4.00 [facility] Comment on above: Order Comment: Speci men Type: BLOOD SPECIMENOrdering Facility: [facility] Address: [address] [place] [address] Performed By: #### 5 7021-8 ####[facility] LABCLIA [id number] [place] [address] [place] Lymphocytes/100 WBC (Bld) 0.3 % Normal [facility] Comment on above: Order Comment: Speci men Type: BLOOD SPECIMENOrdering Facility: [facility] Address: [address] [place] [address] Performed By: #### 5 7021-8 ####[facility] LABCLIA [id number] [place] [address] [place] MCH (RBC) [Entitic mass] 31.3 pg Normal 26.0-34.0 [facility] Comment on above: Order Comment: Speci men Type: BLOOD SPECIMENOrdering Facility: [facility] Address: [address] [place] [address] Performed By: #### 5 7021-8 ####[facility] LABCLIA [id number] [place] [address] [place] MCHC (RBC) [Mass/Vol] 33.9 g/dL Normal 30.5-36.0 [facility] Comment on above: Order Comment: Speci men Type: BLOOD SPECIMENOrdering Facility: [facility] Address: [address] [place] [address] Performed By: #### 5 7021-8 ####[facility] LABCLIA [id number] [place] [address] [place] MCV (RBC) [Entitic vol] 92.2 fL Normal 80.0-100.0 [facility] Comment on above: Order Comment: Speci men Type: BLOOD SPECIMENOrdering Facility: [facility] Address: [address] [place] [address] Performed By: #### 5 7021-8 ####[facility] LABCLIA [id number] [place] [address] [place] Monocytes (Bld) [#/Vol] 10*3/uL Normal <0.87 [facility] Comment on above: Order Comment: Speci men Type: BLOOD SPECIMENOrdering Facility: [facility] Address: [address] [place] [address] Performed By: #### 5 7021-8 ####[facility] LABCLIA [id number] [place] [address] [place] Monocytes/100 WBC (Bld) 0.3 % Normal [facility] Comment on above: Order Comment: Speci men Type: BLOOD SPECIMENOrdering Facility: [facility] Address: [address] [place] [address] Performed By: #### 5 7021-8 ####[facility] LABCLIA [id number] [place] [address] [place] Neutrophils (Bld) [#/Vol] 2.82 10*3/uL Normal 1.45-7.50 [facility] Comment on above: Order Comment: Speci men Type: BLOOD SPECIMENOrdering Facility: [facility] Address: [address] [place] [address] Performed By: #### 5 7021-8 ####[facility] LABCLIA [id number] [place] [address] [place] Neutrophils/100 WBC (Bld) 96.6 % Normal [facility] Comment on above: Order Comment: Speci men Type: BLOOD SPECIMENOrdering Facility: [facility] Address: [address] [place] [address] Performed By: #### 5 7021-8 ####[facility] LABCLIA [id number] [place] [address] [place] Nucleated RBC (Bld) [#/Vol] 10*3/uL Normal <0.01 [facility] Comment on above: Order Comment: Speci men Type: BLOOD SPECIMENOrdering Facility: [facility] Address: [address] [place] [address] Performed By: #### 5 7021-8 ####[facility] LABCLIA [id number] [place] [address] [place] Nucleated RBC/100 WBC (Bld) [Ratio] 0.0 /100 WBC Normal [facility] Comment on above: Order Comment: Speci men Type: BLOOD SPECIMENOrdering Facility: [facility] Address: [address] [place] [address] Performed By: #### 5 7021-8 ####[facility] LABCLIA [id number] [place] [address] [place] Platelet mean volume (Bld) [Entitic vol] 9.7 fL Normal 9.0-12.7 [facility] Comment on above: Order Comment: Speci men Type: BLOOD SPECIMENOrdering Facility: [facility] Address: [address] [place] [address] Performed By: #### 5 7021-8 ####[facility] LABIA [id number] [place] [address] [place] Platelets (Bld) [#/Vol] 116 10*3/uL Low 150-400 [facility] Comment on above: Order Comment: Speci men Type: BLOOD SPECIMENOrdering Facility: [facility] Address: [address] [place] [address] Performed By: #### 5 7021-8 ####[facility] LABCLIA [id number] [place] [address] [place] RBC (Bld) [#/Vol] 3.84 10*6/uL Low 4.20-6.00 [facility] Comment on above: Order Comment: Speci men Type: BLOOD SPECIMENOrdering Facility: [facility] Address: [address] [place] [address] Performed By: #### 5 7021-8 ####[facility] LABCLIA [id number] [place] [id number] [place] WBC (Bld) [#/Vol] 2.92 10*3/uL Low 3.70-11.00 [facility] Comment on above: Order Comment: Speci men Type: BLOOD SPECIMENOrdering Facility: [facility] Address: [address] [place] [address] Performed By: #### 5 7021-8 ####[facility] LABCLIA [id number] [place] [address] [place] CRP SerPl-ncon 04-07-2024 CRP [Mass/Vol] 1.2 mg/dL High <0.9 [facility] Comment on above: Order Comment: Speci men Type: BLOOD SPECIMENOrdering Facility: [facility] Address: [address] [place] [address] Performed By: #### 1 988-5, 02969-0, 3084-1, 2777-1, 2276-4 ####[facility] LABCLIA [id number] [place] [address] [place] Comprehensive metabolic 2000 panelon 04-07-2024 Albumin [Mass/Vol] 3.7 g/dL Low 3.9-4.9 [facility] Comment on above: Order Comment: Speci men Type: BLOOD SPECIMENOrdering Facility: [facility] Address: [address] [place] [address] Performed By: #### 2 4323-8, 2532-0 ####[facility] LABCLIA [id number] [place] [address] [place] ALP [Catalytic activity/Vol] 184 U/L High 38-113 [facility] Comment on above: Order Comment: Speci men Type: BLOOD SPECIMENOrdering Facility: [facility] Address: [address] [place] [place] [id number] Performed By: #### 2 4323-8, 2531-0 ####[facility] LABCLIA [id number] [place] [address] [place] ALT [Catalytic activity/Vol] 14 U/L Normal 10-54 [facility] Comment on above: Order Comment: Speci men Type: BLOOD SPECIMENOrdering Facility: [facility] Address: [address] [place] [address] Performed By: #### 2 4323-8, 2531-0 ####[facility] LABCLIA [id number] [place] [address] [place] Anion gap [Moles/Vol] 12 mmol/L Normal 8-15 [facility] Comment on above: Order Comment: Speci men Type: BLOOD SPECIMENOrdering Facility: [facility] Address: [address] [place] [address] Performed By: #### 2 4323-8, 2531-0 ####[facility] LABCLIA [id number] [place] [address] [place] AST [Catalytic activity/Vol] 17 U/L Normal 14-40 [facility] Comment on above: Order Comment: Speci men Type: BLOOD SPECIMENOrdering Facility: [facility] Address: [address] [place], [place] [address] Performed By: #### 2 4323-8, 2-0 ####[facility] LABCLIA [id number] [place] [address] [place] Bilirubin [Mass/Vol] 0.3 mg/dL Normal 0.2-1.3 [facility] Comment on above: Order Comment: Speci men Type: BLOOD SPECIMENOrdering Facility: [facility] Address: [address] [place], [place] [address] Performed By: #### 2 43201-08, 2532-0 ####[facility] LABCLIA [id number] [address] [address] [place] Calcium [Mass/Vol] 8.9 mg/dL Normal 8.5-10.2 [facility] Comment on above: Order Comment: Speci men Type: BLOOD SPECIMENOrdering Facility: [facility] Address: [address] [place] [address] Performed By: #### 2 4323-06, 2531-0 ####[facility] LABCLIA [id number] [address] [address] [place] Chloride [Moles/Vol] 107 mmol/L Normal 98-107 [facility] Comment on above: Order Comment: Speci men Type: BLOOD SPECIMENOrdering Facility: [facility] Address: [address] [place] [address] Performed By: #### 2 4323-06, 0 ####[facility] LABCLIA [id number] [place] [id number] [place] CO2 [Moles/Vol] 22 mmol/L Normal 22-30 [facility] Comment on above: Order Comment: Speci men Type: BLOOD SPECIMENOrdering Facility: [facility] Address: [address] [place], [place] [address] Performed By: #### 2 4323-06, 2531-0 ####[facility] LABCLIA [id number] [address] [address] [place] Creatinine [Mass/Vol] 0.95 mg/dL Normal 0.73-1.22 [facility] Comment on above: Order Comment: Speci men Type: BLOOD SPECIMENOrdering Facility: [facility] Address: [address] [place] [address] Performed By: #### 2 4328, 2531-0 ####[facility] LABCLIA [id number] [place] [id number] [place] Creatinine and Glomerular filtration rate.predicted panel (S/P/Bld) 88 mL/min/1.73m??? Normal >=60 [facility] Comment on above: Order Comment: Sara randle Type: BLOOD SPECIMENOrdering Facility: [facility] Address: [address] [place] [address] Result Comment: Carol mated Glomerular Filtration Rate [...] GFR. Performed By: #### 2 4323-8, 0 ####[facility] LABCLIA [id number] [place] [address] [place] Glucose [Mass/Vol] 77 mg/dL Normal 74-99 [facility] Comment on above: Order Comment: Sara randle Type: BLOOD SPECIMENOrdering Facility: [facility] Address: [address] [place] [address] Result Comment: The [place] [employer] (ADA) provides guidance for cutoff [...] Standards of Medical Care in Diabetes 2016, [place] [employer]. Diabetes Care. 2016.39(Suppl 1). Performed By: #### 2 4323-8, 0 ####[facility] LABCLIA [id number] [place] [address] [place] Potassium [Moles/Vol] 4.1 mmol/L Normal 3.7-5.1 [facility] Comment on above: Order Comment: Speci men Type: BLOOD SPECIMENOrdering Facility: [facility] Address: [address] [place] [address] Performed By: #### 2 4323-8, 2531-0 ####[facility] LABCLIA [id number] [place] [address] [place] Protein [Mass/Vol] 5.9 g/dL Low 6.3-8.0 [facility] Comment on above: Order Comment: Speci men Type: BLOOD SPECIMENOrdering Facility: [facility] Address: [address] [place] [address] Performed By: #### 2 4323-8, 2531-0 ####[facility] LABCLIA [id number] [place] [address] [place] Sodium [Moles/Vol] 141 mmol/L Normal 136-144 [facility] Comment on above: Order Comment: Speci men Type: BLOOD SPECIMENOrdering Facility: [facility] Address: [address] [place] [address] Performed By: #### 2 4323-8, 0 ####[facility] LABCLIA [id number] [place] [address] [place] Urea nitrogen [Mass/Vol] 16 mg/dL Normal 9-24 [facility] Comment on above: Order Comment: Speci men Type: BLOOD SPECIMENOrdering Facility: [facility] Address: [address] [place] [address] Performed By: #### 2 4323-8, 2531-0 ####[facility] LABCLIA [id number] [place] [id number] [place] Ferritin SerPl-mCncon 2023 Ferritin [Mass/Vol] 370.0 ng/mL Normal 30.3-565.7 [facility] Comment on above: Order Comment: Speci men Type: BLOOD SPECIMENOrdering Facility: [facility] Address: [address] [place], [place] [address] Performed By: #### 1 988-5, 28101-3, 3084-1, 2777-1, 6-4 ####[facility] LABCLIA [id number] [place] [id number] [place] LDH SerPl-cCncon 04-07-2024 LDH [Catalytic activity/Vol] 182 U/L Normal 135-225 [facility] Comment on above: Order Comment: Speci men Type: BLOOD SPECIMENOrdering Facility: [facility] Address: [address] [place] [address] Performed By: #### 2 4323-8, 2532-0 ####[facility] LABCLIA [id number] [place] [address] [place] MEDICAL EMERon 04-07-2024 MEDICAL FILOMENA Normal [facility] Magnesium SerPl-mCncon 04-07 Magnesium [Mass/Vol] 2.1 mg/dL Normal 1.7-2.3 [facility] Comment on above: Order Comment: Speci men Type: BLOOD SPECIMENOrdering Facility: [facility] Address: [address] [place] [address] Performed By: #### 1 988-5, 65707-2, 3084-1, 2777-1, 2276-4 ####[facility] LABCLIA [id number] [place] [id number] [place] NURSING PROGon 04-07-2024 NURSING PROG Normal [facility] NUTRITIONon 04-07-2024 NUTRITION Normal [facility] PT EDon 04-07-2024 PT ED Normal [facility] Phosphate SerPl-mCncon 04-07 Phosphate [Mass/Vol] 3.2 mg/dL Normal 2.7-4.8 [facility] Comment on above: Order Comment: Speci men Type: BLOOD SPECIMENOrdering Facility: [facility] Address: [address] [place] [address] Performed By: #### 1 988-5, 24397-7, 3084-1, 2777-1, 6-4 ####[facility] LABCLIA [id number] [place] [address] [place] US LEG VEIN DVT [facility]o n 04-07-2024 US LEG VEIN [facility] Normal [facility] Urate SerPl-mCncon Urate [Mass/Vol] 3.8 mg/dL Low 4.0-8.1 [facility] Comment on above: Order Comment: Speci men Type: BLOOD SPECIMENOrdering Facility: [facility] Address: [address] [place] [address] Performed By: #### 1 988-5, 70305-3, 3084-1, 7-1, 2275-4 ####[facility] LABCLIA [id number] [place] [address] [place] CBC W Auto Differential pane l (Bld)on 04-06-2024 Basophils (Bld) [#/Vol] 10*3/uL Normal <0.11 [facility] Comment on above: Order Comment: Speci men Type: BLOOD SPECIMENOrdering Facility: [facility] Address: [address] [place] [address] Performed By: #### 5 7021-8 ####[facility] LABCLIA [id number] [place] [address] [place] Basophils/100 WBC (Bld) 0.5 % Normal [facility] Comment on above: Order Comment: Speci men Type: BLOOD SPECIMENOrdering Facility: [facility] Address: [address] [place] [address] Performed By: #### 5 7021-8 ####[facility] LABCLIA [id number] [place] [address] [place] Differential cell count method Nom (Bld) Auto Normal [facility] Comment on above: Order Comment: Speci men Type: BLOOD SPECIMENOrdering Facility: [facility] Address: [address] [place] [address] Performed By: #### 5 7021-8 ####[facility] LABCLIA [id number] [place] [address] [place] Eosinophils (Bld) [#/Vol] 0.06 10*3/uL Normal <0.46 [facility] Comment on above: Order Comment: Speci men Type: BLOOD SPECIMENOrdering Facility: [facility] Address: [address] [place] [address] Performed By: #### 5 7021-8 ####[facility] LABIA [id number] [place] [address] [place] Eosinophils/100 WBC (Bld) 2.7 % Normal [facility] Comment on above: Order Comment: Speci men Type: BLOOD SPECIMENOrdering Facility: [facility] Address: [address] [place] [address] Performed By: #### 5 7021-8 ####[facility] LABIA [id number] [place] [address] [place] Erythrocyte distribution width (RBC) [Ratio] 13.4 % Normal 11.5-15.0 [facility] Comment on above: Order Comment: Speci men Type: BLOOD SPECIMENOrdering Facility: [facility] Address: [address] [place] [address] Performed By: #### 5 7021-8 ####[facility] LABIA [id number] [place] [address] [place] Hematocrit (Bld) [Volume fraction] 37.3 % Low 39.0-51.0 [facility] Comment on above: Order Comment: Speci men Type: BLOOD SPECIMENOrdering Facility: [facility] Address: [address] [place] [address] Performed By: #### 5 7021-8 ####[facility] LABCLIA [id number] [place] [address] [place] Hemoglobin (Bld) [Mass/Vol] 12.6 g/dL Low 13.0-17.0 [facility] Comment on above: Order Comment: Speci men Type: BLOOD SPECIMENOrdering Facility: [facility] Address: [address] [place] [address] Performed By: #### 5 7021-8 ####[facility] LABCLIA [id number] [place] [address] [place] Immature granulocytes (Bld) [#/Vol] 10*3/uL Normal <0.10 [facility] Comment on above: Order Comment: Speci men Type: BLOOD SPECIMENOrdering Facility: [facility] Address: [address] [place] [address] Performed By: #### 5 7021-8 ####[facility] LABIA [id number] [place] [address] [place] Immature granulocytes/100 WBC (Bld) 0.5 % Normal [facility] Comment on above: Order Comment: Speci men Type: BLOOD SPECIMENOrdering Facility: [facility] Address: [address] [place] [address] Performed By: #### 5 7021-8 ####[facility] LABIA [id number] [place] [address] [place] Lymphocytes (Bld) [#/Vol] 10*3/uL Low 1.00-4.00 [facility] Comment on above: Order Comment: Speci men Type: BLOOD SPECIMENOrdering Facility: [facility] Address: [address] [place] [address] Performed By: #### 5 7021-8 ####[facility] LABIA [id number] [place] [address] [place] Lymphocytes/100 WBC (Bld) 0.5 % Normal [facility] Comment on above: Order Comment: Speci men Type: BLOOD SPECIMENOrdering Facility: [facility] Address: [address] [place] [address] Performed By: #### 5 7021-8 ####[facility] [id number] [place] [address] [place] MCH (RBC) [Entitic mass] 30.4 pg Normal 26.0-34.0 [facility] Comment on above: Order Comment: Speci men Type: BLOOD SPECIMENOrdering Facility: [facility] Address: [address] [place] [address] Performed By: #### 5 7021-8 ####[facility] [id number] [place] [address] [place] MCHC (RBC) [Mass/Vol] 33.8 g/dL Normal 30.5-36.0 [facility] Comment on above: Order Comment: Speci men Type: BLOOD SPECIMENOrdering Facility: [facility] Address: [address] [place] [address] Performed By: #### 5 7021-8 ####[facility] [id number] [place] [address] [place] MCV (RBC) [Entitic vol] 90.1 fL Normal 80.0-100.0 [facility] Comment on above: Order Comment: Speci men Type: BLOOD SPECIMENOrdering Facility: [facility] Address: [address] [place] [address] Performed By: #### 5 7021-8 ####[facility] [id number] [place] [address] [place] Monocytes (Bld) [#/Vol] 10*3/uL Normal <0.87 [facility] Comment on above: Order Comment: Speci men Type: BLOOD SPECIMENOrdering Facility: [facility] Address: [address] [place] [address] Performed By: #### 5 7021-8 ####[facility] LABCLIA [id number] [place] [address] [place] Monocytes/100 WBC (Bld) 0.9 % Normal [facility] Comment on above: Order Comment: Speci men Type: BLOOD SPECIMENOrdering Facility: [facility] Address: [address] [place] [address] Performed By: #### 5 7021-8 ####[facility] LABCLIA [id number] [place] [address] [place] Neutrophils (Bld) [#/Vol] 2.11 10*3/uL Normal 1.45-7.50 [facility] Comment on above: Order Comment: Speci men Type: BLOOD SPECIMENOrdering Facility: [facility] Address: [address] [place] [address] Performed By: #### 5 7021-8 ####[facility] LABCLIA [id number] [place] [address] [place] Neutrophils/100 WBC (Bld) 94.9 % Normal [facility] Comment on above: Order Comment: Speci men Type: BLOOD SPECIMENOrdering Facility: [facility] Address: [address] [place] [address] Performed By: #### 5 7021-8 ####[facility] LABCLIA [id number] [place] [address] [place] Nucleated RBC (Bld) [#/Vol] 10*3/uL Normal <0.01 [facility] Comment on above: Order Comment: Speci men Type: BLOOD SPECIMENOrdering Facility: [facility] Address: [address] [place] [address] Performed By: #### 5 7021-8 ####[facility] LABCLIA [id number] [place] [address] [place] Nucleated RBC/100 WBC (Bld) [Ratio] 0.0 /100 WBC Normal [facility] Comment on above: Order Comment: Speci men Type: BLOOD SPECIMENOrdering Facility: [facility] Address: [address] [place] [address] Performed By: #### 5 7021-8 ####[facility] LABCLIA [id number] [place] [address] [place] Platelet mean volume (Bld) [Entitic vol] 9.6 fL Normal 9.0-12.7 [facility] Comment on above: Order Comment: Speci men Type: BLOOD SPECIMENOrdering Facility: [facility] Address: [address] [place] [address] Performed By: #### 5 7021-8 ####[facility] LABCLIA [id number] [place] [address] [place] Platelets (Bld) [#/Vol] 118 10*3/uL Low 150-400 [facility] Comment on above: Order Comment: Speci men Type: BLOOD SPECIMENOrdering Facility: [facility] Address: [address] [place] [address] Performed By: #### 5 7021-8 ####[facility] LABIA [id number] [place] [address] [place] RBC (Bld) [#/Vol] 4.14 10*6/uL Low 4.20-6.00 [facility] Comment on above: Order Comment: Speci men Type: BLOOD SPECIMENOrdering Facility: [facility] Address: [address] [place] [address] Performed By: #### 5 7021-8 ####[facility] LABCLIA [id number] [place] [address] [place] WBC (Bld) [#/Vol] 2.22 10*3/uL Low 3.70-11.00 [facility] Comment on above: Order Comment: Speci men Type: BLOOD SPECIMENOrdering Facility: [facility] Address: [address] [place] [address] Performed By: #### 5 7021-8 ####[facility] LABCLIA [id number] [place] [address] [place] CRP SerPl-mCncon 04-06-2024 CRP [Mass/Vol] 1.7 mg/dL High <0.9 [facility] Comment on above: Order Comment: Speci men Type: BLOOD SPECIMENOrdering Facility: [facility] Address: [address] [place] [address] Performed By: #### 1 9123-9, 2777-1, 3084-1, 2276-4, 1987- ####[facility] LABCLIA [id number] [place] [address] [place] Comprehensive metabolic 2000 panelon 04-06-2024 Albumin [Mass/Vol] 4.0 g/dL Normal 3.9-4.9 [facility] Comment on above: Order Comment: Speci men Type: BLOOD SPECIMENOrdering Facility: [facility] Address: [address] [place] [address] Performed By: #### 2 4323-8, 2531-0 ####[facility] LABCLIA [id number] [place] [address] [place] ALP [Catalytic activity/Vol] 174 U/L High 38-113 [facility] Comment on above: Order Comment: Speci men Type: BLOOD SPECIMENOrdering Facility: [facility] Address: [address] [place] [address] Performed By: #### 2 4323-8, 253-0 ####[facility] LABCLIA [id number] [place] [address] [place] ALT [Catalytic activity/Vol] 18 U/L Normal 10-54 [facility] Comment on above: Order Comment: Speci men Type: BLOOD SPECIMENOrdering Facility: [facility] Address: [address] [id number] Performed By: #### 2 432-8, 2531-0 ####[facility] LABCLIA [id number] [place] [address] [place] Anion gap [Moles/Vol] 11 mmol/L Normal 8-15 [facility] Comment on above: Order Comment: Speci men Type: BLOOD SPECIMENOrdering Facility: [facility] Address: [address] [place] [address] Performed By: #### 2 4328, 2531-0 ####[facility] LABCLIA [id number] [place] [address] [place] AST [Catalytic activity/Vol] 19 U/L Normal 14-40 [facility] Comment on above: Order Comment: Speci men Type: BLOOD SPECIMENOrdering Facility: [facility] Address: [address] [place] [address] Performed By: #### 2 4328, 2531-0 ####[facility] LABCLIA [id number] [place] [address] [place] Bilirubin [Mass/Vol] 0.4 mg/dL Normal 0.2-1.3 [facility] Comment on above: Order Comment: Speci men Type: BLOOD SPECIMENOrdering Facility: [facility] Address: [address] [place] [address] Performed By: #### 2 4328, 2531-0 ####[facility] LABCLIA [id number] [place] [id number] [place] Calcium [Mass/Vol] 8.9 mg/dL Normal 8.5-10.2 [facility] Comment on above: Order Comment: Speci men Type: BLOOD SPECIMENOrdering Facility: [facility] Address: [address] [place] [address] Performed By: #### 2 4328, 2531-0 ####[facility] LABCLIA [id number] [place] [address] [place] Chloride [Moles/Vol] 106 mmol/L Normal 98-107 [facility] Comment on above: Order Comment: Speci men Type: BLOOD SPECIMENOrdering Facility: [facility] Address: [address] [place] [address] Performed By: #### 2 4323-8, 2532-0 ####[facility] LABIA [id number] [place] [address] [place] CO2 [Moles/Vol] 25 mmol/L Normal 22-30 [facility] Comment on above: Order Comment: Speci men Type: BLOOD SPECIMENOrdering Facility: [facility] Address: [address] [place] [address] Performed By: #### 2 4323-8, 2532-0 ####[facility] LABIA [id number] [place] [address] [place] Creatinine [Mass/Vol] 0.92 mg/dL Normal 0.73-1.22 [facility] Comment on above: Order Comment: Speci men Type: BLOOD SPECIMENOrdering Facility: [facility] Address: [address] [place] [address] Performed By: #### 2 4323-8, 2532-0 ####[facility] [id number] [place] [address] [place] Creatinine and Glomerular filtration rate.predicted panel (S/P/Bld) 91 mL/min/1.73m??? Normal >=60 [facility] Comment on above: Order Comment: Speci men Type: BLOOD SPECIMENOrdering Facility: [facility] Address: [address] [place] [address] Result Comment: Carol mated Glomerular Filtration Rate [...] reflect actual GFR. Performed By: #### 2 4328, ####[facility] LABCLIA [id number] [address] [address] [place] Glucose [Mass/Vol] 114 mg/dL High 74-99 [facility] Comment on above: Order Comment: Sara randle Type: BLOOD SPECIMENOrdering Facility: [facility] Address: [address] [place] [address] Result Comment: The [place] [employer] (ADA) provides guidance for cutoff [...] Standards of Medical Care in Diabetes 2016, [place] [employer]. Diabetes Care. 2016.39(Suppl 1). Performed By: #### 2 4328, ####[facility] LABCLIA [id number] [place] [id number] [place] Potassium [Moles/Vol] 4.1 mmol/L Normal 3.7-5.1 [facility] Comment on above: Order Comment: Sara randle Type: BLOOD SPECIMENOrdering Facility: [facility] Address: [address] [place] [address] Performed By: #### 2 4328, ####[facility] LABCLIA [id number] [address] [address] [place] Protein [Mass/Vol] 6.4 g/dL Normal 6.3-8.0 [facility] Comment on above: Order Comment: Speci men Type: BLOOD SPECIMENOrdering Facility: [facility] Address: [address] [place] [address] Performed By: #### 2 4323-8, 2532-0 ####[facility] LABIA [id number] [place] [address] [place] Sodium [Moles/Vol] 142 mmol/L Normal 136-144 [facility] Comment on above: Order Comment: Speci men Type: BLOOD SPECIMENOrdering Facility: [facility] Address: [address] [place] [address] Performed By: #### 2 4323-8, 2532-0 ####[facility] LABIA [id number] [place] [address] [place] Urea nitrogen [Mass/Vol] 16 mg/dL Normal 9-24 [facility] Comment on above: Order Comment: Speci men Type: BLOOD SPECIMENOrdering Facility: [facility] Address: [address] [place] [address] Performed By: #### 2 4323-8, 2532-0 ####[facility] [id number] [place] [address] [place] D dimer FEU PPP-mCncon 04-06 Fibrin D-dimer FEU (PPP) [Mass/Vol] 700 ng/mL FEU High <500 [facility] Comment on above: Order Comment: Speci men Type: BLOOD SPECIMENOrdering Facility: [facility] Address: [address] [place] [address] Performed By: #### 4 8065-7, 3255-7, 13956-8 ####[facility] LABIA [id number] [place] [address] [place] Ferritin SerPl-mCncon 2023 Ferritin [Mass/Vol] 408.0 ng/mL Normal 30.3-565.7 [facility] Comment on above: Order Comment: Speci men Type: BLOOD SPECIMENOrdering Facility: [facility] Address: [address] [place] [address] Performed By: #### 1 9123-9, 2777-1, 3084-1, 2276-4, 1988-5 ####[facility] LABCLIA [id number] [place] [id number] [place] Fibrin D-dimer FEU (PPP) [Ma ss/Vol]on 04-06-2024 D DIMER AGE-RELATED CUTOFF 670 ng/mL FEU Normal [facility] Comment on above: Order Comment: Speci men Type: BLOOD SPECIMENOrdering Facility: [facility] Address: [address] [place] [address] Performed By: #### 4 8065-7, 3255-7, 48184-5 ####[facility] LABCLIA [id number] [place] [address] [place] Fibrinogen PPP-mCncon 2023 Fibrinogen Coag (PPP) [Mass/Vol] 385 mg/dL Normal 200-400 [facility] Comment on above: Order Comment: Speci men Type: BLOOD SPECIMENOrdering Facility: [facility] Address: [address] [place] [address] Performed By: #### 4 8065-7, 3255-7, 56346-6 ####[facility] LABCLIA [id number] [place] [id number] [place] HISTORY PHYSICALon HISTORY PHYSICAL Normal [facility] INFUSIONon 04-06-2024 INFUSION DATE 04/06/2024 Normal [facility] Comment on above: Order Comment: Speci men Type: SPECIMEN FROM BLOOD PRODUCTOrdering Facility: [facility] Address: [address] [place] [address] Performed By: #### H PCING ####[facility] LABCLIA [id number] [place] [address] [place] PRODUCT ID [id number] Normal [facility] Comment on above: Order Comment: Speci men Type: SPECIMEN FROM BLOOD PRODUCTOrdering Facility: [facility] Address: [address] [place] [address] Performed By: #### H PCING ####[facility] LABCLIA [id number] [place] [address] [place] PRODUCT TYPE Yescarta Normal [facility] Comment on above: Order Comment: Speci men Type: SPECIMEN FROM BLOOD PRODUCTOrdering Facility: [facility] Address: [address] [place] [address] Performed By: #### H PCING ####[facility] [id number] [place] [address] [place] LDH SerPl-cCncon 04-06-2024 LDH [Catalytic activity/Vol] 180 U/L Normal 135-225 [facility] Comment on above: Order Comment: Speci men Type: BLOOD SPECIMENOrdering Facility: [facility] Address: [address] [place] [address] Performed By: #### 2 4323-8, 2532-0 ####[facility] [id number] [place] [address] [place] Magnesium SerPl-mCncon 04-06 Magnesium [Mass/Vol] 2.2 mg/dL Normal 1.7-2.3 [facility] Comment on above: Order Comment: Speci men Type: BLOOD SPECIMENOrdering Facility: [facility] Address: [address] [place] [address] Performed By: #### 1 9123-9, 2777-1, 3084-1, 2276-4, 1988-5 ####[facility] LABIA [id number] [place] [address] [place] NURSING PROGon 04-06-2024 NURSING PROG Normal [facility] PT panel Coag (PPP)on 2023 INR Coag (PPP) [Relative time] 1.1 {INR} Normal 0.9-1.3 [facility] Comment on above: Order Comment: Sara randle Type: BLOOD SPECIMENOrdering Facility: [facility] Address: [address] [id number] Result Comment: Anca min K Antagonist (VKA) Therapeutic Range: INR 2 to 3 (Target INR of 2.5)Note: For patients treated with VKA drugs, such as warfarin, the [place] [employer] 2012 Guideline recommends [...] of 3).Mike RODRIGUEZ, et al. Chest 2012, 141:7S-47SNishimyocasta RA, et al. [facility] 2017, 70: 252-289 Performed By: #### 3 4528-0 ####[facility] LABIA [id number] [place] [address] [place] PT Coag (PPP) [Time] 11.4 s Normal 9.7-13.0 [facility] Comment on above: Order Comment: Sara randle Type: BLOOD SPECIMENOrdering Facility: [facility] Address: [address] [place] [address] Performed By: #### 3 4528-0 ####[facility] LABIA [id number] [place] [address] [place] Phosphate SerPl-mCncon 04-06 Phosphate [Mass/Vol] 3.3 mg/dL Normal 2.7-4.8 [facility] Comment on above: Order Comment: Sara randle Type: BLOOD SPECIMENOrdering Facility: [facility] Address: [address] [place] [address] Performed By: #### 1 9123-9, 2777-1, 3084-1, 2276-4, 1987- ####[facility] LABCLIA [id number] [place] [address] [place] TYPE + SCREENon 04-06-2024 ABO B Normal [facility] Comment on above: Order Comment: Speci men Type: BLOOD SPECIMENOrdering Facility: [facility] Address: [address] [place] [address] Performed By: #### T SCR ####[facility] BLOOD BANKCLIA [id number] [place] [address] [place] HISTORICAL AB SCR STATUS Negative Normal [facility] Comment on above: Order Comment: Speci men Type: BLOOD SPECIMENOrdering Facility: [facility] Address: [address] [place] [address] Performed By: #### T SCR ####[facility] BLOOD BANKCLIA [id number] [place] [address] [place] Rh Nom (Bld) Negative Normal [facility] Comment on above: Order Comment: Speci men Type: BLOOD SPECIMENOrdering Facility: [facility] Address: [address] [place] [address] Performed By: #### T SCR ####[facility] BLOOD BANKCLIA [id number] [place] [address] [place] TYPE AND SCREEN EXPIRATION 04/09/2024 23:59 Normal [facility] Comment on above: Order Comment: Speci men Type: BLOOD SPECIMENOrdering Facility: [facility] Address: [address] [place] [address] Performed By: #### T SCR ####[facility] BLOOD BANKCLIA [id number] [place] [id number] [place] Urate SerPl-mCncon 4 Urate [Mass/Vol] 4.9 mg/dL Normal 4.0-8.1 [facility] Comment on above: Order Comment: Speci men Type: BLOOD SPECIMENOrdering Facility: [facility] Address: [address] [place] [address] Performed By: #### 1 9123-9, 2777-1, 3084-1, 2276-4, 1987- ####[facility] LABCLIA [id number] [place] [address] [place] aPTT PPPon 04-06-2024 aPTT Coag (PPP) [Time] 31.6 s Normal 23.0-32.4 [facility] Comment on above: Order Comment: Speci men Type: BLOOD SPECIMENOrdering Facility: [facility] Address: [address] [place] [address] Performed By: #### 4 8065-7, 3255-7, 28071-0 ####[facility] LABCLIA [id number] [place] [address] [place] CBC W Auto Differential pane l (Bld)on 04-01-2024 Basophils (Bld) [#/Vol] 0.05 10*3/uL [facility] Basophils/100 WBC (Bld) 1.0 % [facility] Differential cell count method Nom (Bld) Auto [facility] Eosinophils (Bld) [#/Vol] 0.29 10*3/uL [facility] Eosinophils/100 WBC (Bld) 5.9 % [facility] Erythrocyte distribution width (RBC) [Ratio] 13.8 % 11.5 - 15.0 % [facility] Hematocrit (Bld) [Volume fraction] 39.4 % 39.0 - 51.0 % [facility] Hemoglobin (Bld) [Mass/Vol] 13.5 g/dL 13.0 - 17.0 g/dL [facility] Immature granulocytes (Bld) [#/Vol] [facility] Immature granulocytes/100 WBC (Bld) 0.4 % [facility] Interpretation and review of laboratory results Abnormal [facility] Lymphocytes (Bld) [#/Vol] 0.35 10*3/uL Low [facility] Lymphocytes/100 WBC (Bld) 7.2 % [facility] MCH (RBC) [Entitic mass] 31.8 pg 26.0 - 34.0 pg [facility] MCHC (RBC) [Mass/Vol] 34.3 g/dL 30.5 - 36.0 g/dL [facility] MCV (RBC) [Entitic vol] 92.9 fL 80.0 - 100.0 fL [facility] Monocytes (Bld) [#/Vol] 0.95 10*3/uL High [facility] Monocytes/100 WBC (Bld) 19.5 % [facility] Neutrophils (Bld) [#/Vol] 3.22 10*3/uL [facility] Neutrophils/100 WBC (Bld) 66.0 % [facility] Nucleated RBC (Bld) [#/Vol] [facility] Nucleated RBC/100 WBC (Bld) [Ratio] 0.0 % /100 WBC [facility] Platelet mean volume (Bld) [Entitic vol] 9.9 fL 9.0 - 12.7 fL [facility] Platelets (Bld) [#/Vol] 156 10*3/uL [facility] RBC (Bld) [#/Vol] 4.24 10*6/uL 4.20 - 6.00 m/uL [facility] WBC (Bld) [#/Vol] 4.88 10*3/uL [facility] Basophils (Bld) [#/Vol] 0.05 10*3/uL Normal <0.11 [facility] Comment on above: Order Comment: Speci men Type: BLOOD SPECIMENOrdering Facility: [facility] Address: [address] [place] [address] Performed By: #### 5 7021-8 ####[facility] [id number] [address] [place] Basophils/100 WBC (Bld) 1.0 % Normal [facility] Comment on above: Order Comment: Speci men Type: BLOOD SPECIMENOrdering Facility: [facility] Address: [address] [place] [address] Performed By: #### 5 7021-8 ####[facility] [id number] [place] [address] [place] Differential cell count method Nom (Bld) Auto Normal [facility] Comment on above: Order Comment: Speci men Type: BLOOD SPECIMENOrdering Facility: [facility] Address: [address] [place] [address] Performed By: #### 5 7021-8 ####[facility] [place] [id number] [place] [address] [place] Eosinophils (Bld) [#/Vol] 0.29 10*3/uL Normal <0.46 [facility] Comment on above: Order Comment: Speci men Type: BLOOD SPECIMENOrdering Facility: [facility] Address: [address] [place] [address] Performed By: #### 5 7021-8 ####[facility] [place] [id number] [place] [address] [place] Eosinophils/100 WBC (Bld) 5.9 % Normal [facility] Comment on above: Order Comment: Speci men Type: BLOOD SPECIMENOrdering Facility: [facility] Address: [address] [place] [address] Performed By: #### 5 7021-8 ####[facility] [id number] [place] [address] [place] Erythrocyte distribution width (RBC) [Ratio] 13.8 % Normal 11.5-15.0 [facility] Comment on above: Order Comment: Speci men Type: BLOOD SPECIMENOrdering Facility: [facility] Address: [address] [place] [address] Performed By: #### 5 7021-8 ####[facility] [id number] [place] [address] [place] Hematocrit (Bld) [Volume fraction] 39.4 % Normal 39.0-51.0 [facility] Comment on above: Order Comment: Speci men Type: BLOOD SPECIMENOrdering Facility: [facility] Address: [address] [place] [address] Performed By: #### 5 7021-8 ####[facility] [place] [id number] [place] [address] [place] Hemoglobin (Bld) [Mass/Vol] 13.5 g/dL Normal 13.0-17.0 [facility] Comment on above: Order Comment: Speci men Type: BLOOD SPECIMENOrdering Facility: [facility] Address: [address] [place] [address] Performed By: #### 5 7021-8 ####[facility] [place] [facility] [id number] [place] [address] [place] Immature granulocytes (Bld) [#/Vol] 10*3/uL Normal <0.10 [facility] Comment on above: Order Comment: Speci men Type: BLOOD SPECIMENOrdering Facility: [facility] Address: [address] [place] [address] Performed By: #### 5 7021-8 ####[facility] [place] [facility] [id number] [place] [address] [place] Immature granulocytes/100 WBC (Bld) 0.4 % Normal [facility] Comment on above: Order Comment: Speci men Type: BLOOD SPECIMENOrdering Facility: [facility] Address: [address] [place] [address] Performed By: #### 5 7021-8 ####[facility] [id number] [place] [address] [place] Lymphocytes (Bld) [#/Vol] 0.35 10*3/uL Low 1.00-4.00 [facility] Comment on above: Order Comment: Speci men Type: BLOOD SPECIMENOrdering Facility: [facility] Address: [address] [place] [address] Performed By: #### 5 7021-8 ####[facility] [id number] [place] [address] [place] Lymphocytes/100 WBC (Bld) 7.2 % Normal [facility] Comment on above: Order Comment: Speci men Type: BLOOD SPECIMENOrdering Facility: [facility] Address: [address] [place] [address] Performed By: #### 5 7021-8 ####[facility] [id number] [place] [address] [place] MCH (RBC) [Entitic mass] 31.8 pg Normal 26.0-34.0 [facility] Comment on above: Order Comment: Speci men Type: BLOOD SPECIMENOrdering Facility: [facility] Address: [address] [place] [address] Performed By: #### 5 7021-8 ####[facility] [place] [id number] [place] [address] [place] MCHC (RBC) [Mass/Vol] 34.3 g/dL Normal 30.5-36.0 [facility] Comment on above: Order Comment: Speci men Type: BLOOD SPECIMENOrdering Facility: [facility] Address: [address] [place] [address] Performed By: #### 5 7021-8 ####[facility] [id number] [place] [address] [place] MCV (RBC) [Entitic vol] 92.9 fL Normal 80.0-100.0 [facility] Comment on above: Order Comment: Speci men Type: BLOOD SPECIMENOrdering Facility: [facility] Address: [address] [place] [address] Performed By: #### 5 7021-8 ####[facility] [id number] [place] [address] [place] Monocytes (Bld) [#/Vol] 0.95 10*3/uL High <0.87 [facility] Comment on above: Order Comment: Speci men Type: BLOOD SPECIMENOrdering Facility: [facility] Address: [address] [place] [address] Performed By: #### 5 7021-8 ####[facility] [id number] [place] [address] [place] Monocytes/100 WBC (Bld) 19.5 % Normal [facility] Comment on above: Order Comment: Speci men Type: BLOOD SPECIMENOrdering Facility: [facility] Address: [address] [place] [address] Performed By: #### 5 7021-8 ####[facility] [place] [id number] [place] [address] [place] Neutrophils (Bld) [#/Vol] 3.22 10*3/uL Normal 1.45-7.50 [facility] Comment on above: Order Comment: Speci men Type: BLOOD SPECIMENOrdering Facility: [facility] Address: [address] [place] [address] Performed By: #### 5 7021-8 ####[facility] [place] [id number] [place] [address] [place] Neutrophils/100 WBC (Bld) 66.0 % Normal [facility] Comment on above: Order Comment: Speci men Type: BLOOD SPECIMENOrdering Facility: [facility] Address: [address] [place] [address] Performed By: #### 5 7021-8 ####[facility] [id number] [place] [address] [place] Nucleated RBC (Bld) [#/Vol] 10*3/uL Normal <0.01 [facility] Comment on above: Order Comment: Speci men Type: BLOOD SPECIMENOrdering Facility: [facility] Address: [address] [place] [address] Performed By: #### 5 7021-8 ####[facility] [id number] [place] [address] [place] Nucleated RBC/100 WBC (Bld) [Ratio] 0.0 /100 WBC Normal [facility] Comment on above: Order Comment: Speci men Type: BLOOD SPECIMENOrdering Facility: [facility] Address: [address] [place] [address] Performed By: #### 5 7021-8 ####[facility] [id number] [place] [address] [place] Platelet mean volume (Bld) [Entitic vol] 9.9 fL Normal 9.0-12.7 [facility] Comment on above: Order Comment: Speci men Type: BLOOD SPECIMENOrdering Facility: [facility] Address: [address] [place] [address] Performed By: #### 5 7021-8 ####[facility] [id number] [place] [address] [place] Platelets (Bld) [#/Vol] 156 10*3/uL Normal 150-400 [facility] Comment on above: Order Comment: Speci men Type: BLOOD SPECIMENOrdering Facility: [facility] Address: [address] [place] [address] Performed By: #### 5 7021-8 ####[facility] [id number] [place] [address] [place] RBC (Bld) [#/Vol] 4.24 10*6/uL Normal 4.20-6.00 [facility] Comment on above: Order Comment: Speci men Type: BLOOD SPECIMENOrdering Facility: [facility] Address: [address] [place] [address] Performed By: #### 5 7021-8 ####[facility] [id number] [address] [id number] [address] [place] WBC (Bld) [#/Vol] 4.88 10*3/uL Normal 3.70-11.00 [facility] Comment on above: Order Comment: Speci men Type: BLOOD SPECIMENOrdering Facility: [facility] Address: [address] [place] [address] Performed By: #### 5 7021-8 ####[facility] [id number] [place] [address] [place] CNCOon 04-01-2024 CNCO Letter Text Normal [facility] CNOVSPon 04-01-2024 CNOVSP Normal [facility] Comprehensive metabolic 2000 panelon 04-01-2024 Albumin [Mass/Vol] 3.7 g/dL Low 3.9 - 4.9 g/dL [facility] ALP [Catalytic activity/Vol] 169 U/L High 38 - 113 U/L [facility] ALT [Catalytic activity/Vol] 17 U/L 10 - 54 U/L [facility] Anion gap [Moles/Vol] 10 mmol/L 9 - 18 mmol/L [facility] AST [Catalytic activity/Vol] 17 U/L 14 - 40 U/L [facility] Bilirubin [Mass/Vol] 0.2 mg/dL 0.2 - 1 .3 mg/dL [facility] Calcium [Mass/Vol] 8.4 mg/dL Low 8.5 - 10. 2 mg/dL [facility] Chloride [Moles/Vol] 108 mmol/L High 97 - 10 5 mmol/L [facility] CO2 [Moles/Vol] 23 mmol/L 22 - 30 mmol/L [facility] Creatinine [Mass/Vol] 0.88 mg/dL 0.73 - 1.22 mg/dL [facility] GFR/1.73 sq M.predicted among non-blacks MDRD (S/P/Bld) [Vol rate/Area] 94 mL/min/{1.73_m2} - PINF [facility] Comment on above: Estimated Glomerular Filtration [...] [Mass/Vol] 88 mg/dL 74 - 99 mg/dL [facility] Comment on above: The [place] Di[employer] Association (ADA) provides guidance for [...] Standards of Medical Care in Diabetes 2016, [place] [employer]. Diabetes Care. 2016.39(Suppl 1). Interpretation and review of laboratory results Abnormal [facility] Potassium [Moles/Vol] 3.9 mmol/L 3.7 - 5.1 mmol/L [facility] Protein [Mass/Vol] 6.2 g/dL Low 6.3 - 8.0 g/dL [facility] Sodium [Moles/Vol] 141 mmol/L 136 - 144 mmol/L [facility] Urea nitrogen [Mass/Vol] 17 mg/dL 9 - 24 mg/dL [facility] Albumin [Mass/Vol] 3.7 g/dL Low 3.9-4.9 [facility] Comment on above: Order Comment: Speci men Type: BLOOD SPECIMENOrdering Facility: [facility] Address: [address] [place] [address] Performed By: #### 2 4323-8 ####[facility] LABCLIA [id number] [place] [address] [place] ALP [Catalytic activity/Vol] 169 U/L High 38-113 [facility] Comment on above: Order Comment: Speci men Type: BLOOD SPECIMENOrdering Facility: [facility] Address: [address] [place] [address] Performed By: #### 2 4323-8 ####[facility] LABCLIA [id number] [place] [id number] [place] ALT [Catalytic activity/Vol] 17 U/L Normal 10-54 [facility] Comment on above: Order Comment: Speci men Type: BLOOD SPECIMENOrdering Facility: [facility] Address: [address] [place] [address] Performed By: #### 2 4323-8 ####[facility] LABCLIA [id number] [place] [address] [place] Anion gap [Moles/Vol] 10 mmol/L Normal 9-18 [facility] Comment on above: Order Comment: Speci men Type: BLOOD SPECIMENOrdering Facility: [facility] Address: [address] [place] [address] Performed By: #### 2 4323-8 ####[facility] LABCLIA [id number] [place] [address] [place] AST [Catalytic activity/Vol] 17 U/L Normal 14-40 [facility] Comment on above: Order Comment: Speci men Type: BLOOD SPECIMENOrdering Facility: [facility] Address: [address] [place], [place] [address] Performed By: #### 2 4323-8 ####[facility] LABCLIA [id number] [place] [address] [place] Bilirubin [Mass/Vol] 0.2 mg/dL Normal 0.2-1.3 [facility] Comment on above: Order Comment: Speci men Type: BLOOD SPECIMENOrdering Facility: [facility] Address: [address] [place], [place] [address] Performed By: #### 2 4323-8 ####[facility] LABCLIA [id number] [place] [id number] [place] Calcium [Mass/Vol] 8.4 mg/dL Low 8.5-10.2 [facility] Comment on above: Order Comment: Speci men Type: BLOOD SPECIMENOrdering Facility: [facility] Address: [address] [place] [address] Performed By: #### 2 4323-8 ####[facility] LABCLIA [id number] [place] [address] [place] Chloride [Moles/Vol] 108 mmol/L High 97-105 [facility] Comment on above: Order Comment: Speci men Type: BLOOD SPECIMENOrdering Facility: [facility] Address: [address] [place] [address] Performed By: #### 2 4323-8 ####[facility] LABCLIA [id number] [place] [address] [place] CO2 [Moles/Vol] 23 mmol/L Normal 22-30 [facility] Comment on above: Order Comment: Speci men Type: BLOOD SPECIMENOrdering Facility: [facility] Address: [address] [place] [address] Performed By: #### 2 4323-8 ####[facility] LABCLIA [id number] [place] [address] [place] Creatinine [Mass/Vol] 0.88 mg/dL Normal 0.73-1.22 [facility] Comment on above: Order Comment: Speci men Type: BLOOD SPECIMENOrdering Facility: [facility] Address: [address] [place] [address] Performed By: #### 2 4323-8 ####[facility] LABCLIA [id number] [place] [address] [place] Creatinine and Glomerular filtration rate.predicted panel (S/P/Bld) 94 mL/min/1.73m??? Normal >=60 [facility] Comment on above: Order Comment: Speci men Type: BLOOD SPECIMENOrdering Facility: [facility] Address: [address] [place] [address] Result Comment: Carol mated Glomerular Filtration Rate [...] actual GFR. Performed By: #### 2 4323-8 ####[facility] LABCLIA [id number] [place] [address] [place] Glucose [Mass/Vol] 88 mg/dL Normal 74-99 [facility] Comment on above: Order Comment: Sara randle Type: BLOOD SPECIMENOrdering Facility: [facility] Address: [address] [place] [address] Result Comment: The [place] Diabetes Association (ADA) provides guidance for cutoff [...] Standards of Medical Care in Diabetes 2016, [place] [employer]. Diabetes Care. 2016.39(Suppl 1). Performed By: #### 2 4323-8 ####[facility] LABCLIA [id number] [place] [id number] [place] Potassium [Moles/Vol] 3.9 mmol/L Normal 3.7-5.1 [facility] Comment on above: Order Comment: Sara randle Type: BLOOD SPECIMENOrdering Facility: [facility] Address: [address] [place] [id number] Performed By: #### 2 4323-8 ####[facility] LABCLIA [id number] [place] [address] [place] Protein [Mass/Vol] 6.2 g/dL Low 6.3-8.0 [facility] Comment on above: Order Comment: Speci men Type: BLOOD SPECIMENOrdering Facility: [facility] Address: [address] [place] [address] Performed By: #### 2 4323-8 ####[facility] LABCLIA [id number] [place] [address] [place] Sodium [Moles/Vol] 141 mmol/L Normal 136-144 [facility] Comment on above: Order Comment: Speci men Type: BLOOD SPECIMENOrdering Facility: [facility] Address: [address] [place] [address] Performed By: #### 2 4323-8 ####[facility] LABCLIA [id number] [address] [place] Urea nitrogen [Mass/Vol] 17 mg/dL Normal 9-24 [facility] Comment on above: Order Comment: Speci men Type: BLOOD SPECIMENOrdering Facility: [facility] Address: [address] [place] [address] Performed By: #### 2 4323-8 ####[facility] LABCLIA [id number] [place] [address] [place] PET+CT Guidance for localiza tion of tumor of Skull base to mid-thigh-- W 18F-FDG Bella 03-31-2024 IMPRESSION: HEAD/NECK: * No FDG avid neoplastic [...] uptake unlikely to be related to lymphoma Transcribe Date/Time: Mar 31 2024 1:30P Dictated by: QUINN DOWNEY MD This examination was interpreted and the report reviewed and electronically signed by: QUINN DOWNEY MD on Mar 31 2024 2:05PM EST Thank you for allowing us to participate in the care of your patient. Should there be any questions regarding this interpretation, please call [phone]. If you are unable to reach us at the number above, please feel free to contact [facility] at [phone]. 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 INDICATION: Subsequent treatment strategy. TECHNIQUE: Radiopharmaceutical was administered IV followed about 60 minutes later by PET imaging from eyes to proximal thighs. Free breathing, low dose CT of the same body region was acquired without IV contrast for attenuation correction and anatomic localization. * CT Dose-Length Product (DLP): 258 mGy*cm * CT Dose Reduction Employed: Yes * Blood glucose (mg/dL): 94 * Radiopharmaceutical Dose: 9.4 mCi * Radiopharmaceutical: [id number] (FDG) COMPARISON: FDG PET/CT 01/30/2024 CORRELATION: No relevant imaging available RESULT: REFERENCES: SUV reference values: * Blood pool (descending aorta) activity: SUVmax 2.8 * Background liver activity: SUVmax 3.4; SUVmean 2.6 Manager Of Purchasing (topogram) images: No additional findings. Notes and limitations: * Standardized uptake values indicate the highest activity concentration (SUVmax) at a given location but can be variable and are not absolute. * Physiologic/non-neoplastic uptake is common in the brain, extraocular muscles, oral cavity, tonsils, salivary glands, vocal cords, myocardium, liver, GI tract, urinary tract, and bone marrow among others. Certain regions and organ systems can have more intense uptake, which could confound or obscure some pathology. * Unenhanced imaging is limited for the evaluation of some pathology and the acquired CT was not designed to produce or replace diagnostic CT scan quality. * PET-CT is often not sensitive for pulmonary nodules less than 8 mm. HEAD AND NECK: Imaged Head: No abnormal uptake. Neck & Lymph Nodes: No suspicious uptake. Physiologic activity is again noted within bilateral suboccipital and supraclavicular brown fat. Thyroid: No abnormal uptake. Redemonstrated diminutive thyroid gland. CHEST: Lungs & Airways: A left upper lobe pulmonary nodule has increased markedly in size and FDG avidity, measuring 1.5 cm with SUV max 15.7 (4/127), previously 0.6 cm with SUV max 2.8. Redemonstrated upper lobe predominant emphysema and bibasilar atelectasis/scarring. Pleura & Pericardium: No abnormal uptake. Cardiovascular: No abnormal uptake. Mild atherosclerotic calcifications. A right chest wall port tip terminates in the SVC. Mediastinum & Lymph Nodes: There are new intensely FDG avid right retrocrural nodes. For example, a 0.8 cm node measures SUV max 7.0 (4/190). Mild bilateral hilar uptake is similar to prior, with activity that is slightly above mediastinal blood pool. For example, right hilar uptake measures SUV max 3.7 (previous SUV max 3.9). Small hiatal hernia. ABDOMEN AND PELVIS: Hepatobiliary: No abnormal uptake. Spleen: No abnormal uptake. No splenomegaly. Pancreas: No abnormal uptake. Adrenals: No abnormal uptake. Urinary Tract: No abnormal uptake. GI Tract: Focal uptake within the sigmoid colon has increased slightly in intensity, measuring SUV max 10.9 (previous SUV max 8.9). No dilated bowel. Peritoneum: No abnormal uptake. Vasculature: No abnormal uptake. Mild atherosclerotic calcifications. Retroperitoneum & Lymph Nodes: Although right thigh, inguinal and pelvic adenopathy has overall decreased in size and/or FDG avidity status post radiation therapy, there is new extensive FDG avid retroperitoneal and common iliac adenopathy. Examples of postradiation treatment response include: -2.5 x 2.4 cm right inguinal node, SUV max 6.0 (4/291), previously 3.1 x 2.2 cm with SUV max 14.9. -3.7 x 2.2 cm right external iliac node, SUV max 8.4 (4/282), previously 4.2 x 2.6 cm with SUV max 25.3. Examples of new intensely FDG avid nodes include: -1.5 x 1.2 cm left common iliac node, SUV max 6.4 (4/247). -1.6 x 1.2 cm aortocaval node, SUV max 17.4 (4/224). -1.9 x 1.9 cm right paracaval node, SUV max 17.0 (4/200). Redemonstrated probable postoperative seroma or lymphocele in the region of right inguinal vasile excision, decreased in size, measuring 3.3 x 2.5 cm (previously 5.2 x 4.0 cm). Pelvis: Mild, asymmetric activity in the left posterior peripheral zone of the prostate gland measures SUV max 3.7 (previous SUV max 3.4). MUSCULOSKELETAL: Osseous: No abnormal uptake. Degenerative changes. Soft Tissues: No abnormal uptake. DIVISION OF RADIOLOGY Provider, 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 INDICATION: Subsequent treatment strategy. TECHNIQUE: Radiopharmaceutical was administered IV followed about 60 minutes later by PET imaging from eyes to proximal thighs. Free breathing, low dose CT of the same body region was acquired without IV contrast for attenuation correction and anatomic localization. * CT Dose-Length Product (DLP): 258 mGy*cm * CT Dose Reduction Employed: Yes * Blood glucose (mg/dL): 94 * Radiopharmaceutical Dose: 9.4 mCi * Radiopharmaceutical: [id number] (FDG) COMPARISON: FDG PET/CT 01/30/2024 CORRELATION: No relevant imaging available RESULT: REFERENCES: SUV reference values: * Blood pool (descending aorta) activity: SUVmax 2.8 * Background liver activity: SUVmax 3.4; SUVmean 2.6 Manager Of Purchasing (topogram) images: No additional findings. Notes and limitations: * Standardized uptake values indicate the highest activity concentration (SUVmax) at a given location but can be variable and are not absolute. * Physiologic/non-neoplastic uptake is common in the brain, extraocular muscles, oral cavity, tonsils, salivary glands, vocal cords, myocardium, liver, GI tract, urinary tract, and bone marrow among others. Certain regions and organ systems can have more intense uptake, which could confound or obscure some pathology. * Unenhanced imaging is limited for the evaluation of some pathology and the acquired CT was not designed to produce or replace diagnostic CT scan quality. * PET-CT is often not sensitive for pulmonary nodules less than 8 mm. HEAD AND NECK: Imaged Head: No abnormal uptake. Neck & Lymph Nodes: No suspicious uptake. Physiologic activity is again noted within bilateral suboccipital and supraclavicular brown fat. Thyroid: No abnormal uptake. Redemonstrated diminutive thyroid gland. CHEST: Lungs & Airways: A left upper lobe pulmonary nodule has increased markedly in size and FDG avidity, measuring 1.5 cm with SUV max 15.7 (4/127), previously 0.6 cm with SUV max 2.8. Redemonstrated upper lobe predominant emphysema and bibasilar atelectasis/scarring. Pleura & Pericardium: No abnormal uptake. Cardiovascular: No abnormal uptake. Mild atherosclerotic calcifications. A right chest wall port tip terminates in the SVC. Mediastinum & Lymph Nodes: There are new intensely FDG avid right retrocrural nodes. For example, a 0.8 cm node measures SUV max 7.0 (4/190). Mild bilateral hilar uptake is similar to prior, with activity that is slightly above mediastinal blood pool. For example, right hilar uptake measures SUV max 3.7 (previous SUV max 3.9). Small hiatal hernia. ABDOMEN AND PELVIS: Hepatobiliary: No abnormal uptake. Spleen: No abnormal uptake. No splenomegaly. Pancreas: No abnormal uptake. Adrenals: No abnormal uptake. Urinary Tract: No abnormal uptake. GI Tract: Focal uptake within the sigmoid colon has increased slightly in intensity, measuring SUV max 10.9 (previous SUV max 8.9). No dilated bowel. Peritoneum: No abnormal uptake. Vasculature: No abnormal uptake. Mild atherosclerotic calcifications. Retroperitoneum & Lymph Nodes: Although right thigh, inguinal and pelvic adenopathy has overall decreased in size and/or FDG avidity status post radiation therapy, there is new extensive FDG avid retroperitoneal and common iliac adenopathy. Examples of postradiation treatment response include: -2.5 x 2.4 cm right inguinal node, SUV max 6.0 (4/291), previously 3.1 x 2.2 cm with SUV max 14.9. -3.7 x 2.2 cm right external iliac node, SUV max 8.4 (4/282), previously 4.2 x 2.6 cm with SUV max 25.3. Examples of new intensely FDG avid nodes include: -1.5 x 1.2 cm left common iliac node, SUV max 6.4 (4/247). -1.6 x 1.2 cm aortocaval node, SUV max 17.4 (4/224). -1.9 x 1.9 cm right paracaval node, SUV max 17.0 (4/200). Redemonstrated probable postoperative seroma or lymphocele in the region of right inguinal vasile excision, decreased in size, measuring 3.3 x 2.5 cm (previously 5.2 x 4.0 cm). Pelvis: Mild, asymmetric activity in the left posterior peripheral zone of the prostate gland measures SUV max 3.7 (previous SUV max 3.4). MUSCULOSKELETAL: Osseous: No abnormal uptake. Degenerative changes. Soft Tissues: No abnormal uptake. IMPRESSION IMPRESSION: HEAD/NECK: * No FDG avid neoplastic process. CHEST: * A left upper lobe pulmonary nodule has increased markedly in size and FDG avidity, suspicious for malignancy (more content not included)... [facility] PET+CT Guidance for localiza tion of tumor of Skull base to mid-thigh-- W 18F-FDG IVOrdered By: Ccf Provider on 03-31-2024 [facility] CNCOon 03-26-2024 CNCO Letter Text Normal [facility] GLUCOSE, BLOOD (POC)on 03-25 Glucose [Mass/Vol] 94 mg/dL 74 - 99 mg/dL [facility] Comment on above: Location:[facility], [address] [place] [address] , [place], [place], [facility] The Accu-Chek Inform II glucose meter has not been approved for testing on patients receiving intensive medical intervention or therapy and results from this point of care glucose test should not be used for patient management decisions in these cases. Inaccurate results may also occur from other interfering factors, such as N-acetylcysteine (blood concentrations of greater than 5mg/dL), galactose, extremes of hematocrit (<10 or >65), or high doses of ascorbic acid (vitamin C) greater than 3mg/dL. Consider alternate testing mechanisms (e.g. core lab, blood gas instrument) in the above situations. [facility] NM PET/CT SKULL-THIGH SUBQon 03-25-2024 NM PET/CT SKULL-THIGH SUBQ Normal [facility] PET+CT Guidance for localiza tion of tumor of Skull base to mid-thigh-- W 18F-FDG Bella 03-25-2024 Radiology Study observation (narrative) [facility] CNOVon 03-22-2024 CNOV Normal [facility] CNOVon 03-16-2024 CNOV Normal [facility] CNCNPATEDon 03-15-2024 CNCNPATED Normal [facility] CNOVon 03-15-2024 CNOV Normal [facility] CNPNon 03-13-2024 CNPN Normal [facility] CNPNon 03-10-2024 CNPN Normal [facility] BILIRUBIN, CONJUGATEDon Bilirubin.conjugated [Mass/Vol] mg/dL NINF - 0.2 mg/dL [facility] Bilirub Conj SerPl-mCncon Bilirubin.conjugated [Mass/Vol] mg/dL Normal <0.2 [facility] Comment on above: Order Comment: Speci men Type: BLOOD SPECIMENOrdering Facility: [facility] Address: [address] [place], [place] [address] [address] Performed By: #### 1 5152-2, 23437-5, 3084-1 ####[facility] [id number] [place] [address] [place] C-REACTIVE PROTEINon 024 CRP [Mass/Vol] 2.3 mg/dL High NINF - 0.9 mg/dL [facility] CBC W Auto Differential pane l (Bld)on 03-09-2024 Basophils (Bld) [#/Vol] 0.07 10*3/uL [facility] Basophils/100 WBC (Bld) 0.9 % [facility] Differential cell count method Nom (Bld) Auto [facility] Eosinophils (Bld) [#/Vol] 0.38 10*3/uL [facility] Eosinophils/100 WBC (Bld) 5.1 % [facility] Erythrocyte distribution width (RBC) [Ratio] 13.0 % 11.5 - 15.0 % [facility] Hematocrit (Bld) [Volume fraction] 38.7 % Low 39.0 - 51.0 % [facility] Hemoglobin (Bld) [Mass/Vol] 13.2 g/dL 13.0 - 17.0 g/dL [facility] Immature granulocytes (Bld) [#/Vol] [facility] Immature granulocytes/100 WBC (Bld) 0.3 % [facility] Interpretation and review of laboratory results Abnormal [facility] Lymphocytes (Bld) [#/Vol] 0.54 10*3/uL Low [facility] Lymphocytes/100 WBC (Bld) 7.3 % [facility] MCH (RBC) [Entitic mass] 30.7 pg 26.0 - 34.0 pg [facility] MCHC (RBC) [Mass/Vol] 34.1 g/dL 30.5 - 36.0 g/dL [facility] MCV (RBC) [Entitic vol] 90.0 fL 80.0 - 100.0 fL [facility] Monocytes (Bld) [#/Vol] 1.06 10*3/uL High NINF [facility] Monocytes/100 WBC (Bld) 14.3 % [facility] Neutrophils (Bld) [#/Vol] 5.36 10*3/uL [facility] Neutrophils/100 WBC (Bld) 72.1 % [facility] Nucleated RBC (Bld) [#/Vol] NINF [facility] Nucleated RBC/100 WBC (Bld) [Ratio] 0.0 % /100 WBC [facility] Platelet mean volume (Bld) [Entitic vol] 9.9 fL 9.0 - 12.7 fL [facility] Platelets (Bld) [#/Vol] 219 10*3/uL [facility] RBC (Bld) [#/Vol] 4.30 10*6/uL 4.20 - 6.00 m/uL [facility] WBC (Bld) [#/Vol] 7.43 10*3/uL [facility] Basophils (Bld) [#/Vol] 0.07 10*3/uL Normal <0.11 [facility] Comment on above: Order Comment: Speci men Type: BLOOD SPECIMENOrdering Facility: [facility] Address: [address] [place] [address] Performed By: #### 5 7021-8 ####[facility] [id number] [place] [address] [place] Basophils/100 WBC (Bld) 0.9 % Normal [facility] Comment on above: Order Comment: Speci men Type: BLOOD SPECIMENOrdering Facility: [facility] Address: [address] [place] [address] Performed By: #### 5 7021-8 ####[facility] [place] [id number] [place] [address] [place] Differential cell count method Nom (Bld) Auto Normal [facility] Comment on above: Order Comment: Speci men Type: BLOOD SPECIMENOrdering Facility: [facility] Address: [address] [place] [address] Performed By: #### 5 7021-8 ####[facility] [place] [id number] [place] [address] [place] Eosinophils (Bld) [#/Vol] 0.38 10*3/uL Normal <0.46 [facility] Comment on above: Order Comment: Speci men Type: BLOOD SPECIMENOrdering Facility: [facility] Address: [address] [place] [address] Performed By: #### 5 7021-8 ####[facility] [id number] [place] [address] [place] Eosinophils/100 WBC (Bld) 5.1 % Normal [facility] Comment on above: Order Comment: Speci men Type: BLOOD SPECIMENOrdering Facility: [facility] Address: [address] [place] [address] Performed By: #### 5 7021-8 ####[facility] [id number] [place] [address] [place] Erythrocyte distribution width (RBC) [Ratio] 13.0 % Normal 11.5-15.0 [facility] Comment on above: Order Comment: Speci men Type: BLOOD SPECIMENOrdering Facility: [facility] Address: [address] [place] [address] Performed By: #### 5 7021-8 ####[facility] [id number] [place] [address] [place] Hematocrit (Bld) [Volume fraction] 38.7 % Low 39.0-51.0 [facility] Comment on above: Order Comment: Speci men Type: BLOOD SPECIMENOrdering Facility: [facility] Address: [address] [place] [address] Performed By: #### 5 7021-8 ####[facility] [id number] [place] [address] [place] Hemoglobin (Bld) [Mass/Vol] 13.2 g/dL Normal 13.0-17.0 [facility] Comment on above: Order Comment: Speci men Type: BLOOD SPECIMENOrdering Facility: [facility] Address: [address] [place] [address] Performed By: #### 5 7021-8 ####[facility] [id number] [place] [address] [place] Immature granulocytes (Bld) [#/Vol] 10*3/uL Normal <0.10 [facility] Comment on above: Order Comment: Speci men Type: BLOOD SPECIMENOrdering Facility: [facility] Address: [address] [place] [address] Performed By: #### 5 7021-8 ####[facility] [id number] [place] [address] [place] Immature granulocytes/100 WBC (Bld) 0.3 % Normal [facility] Comment on above: Order Comment: Speci men Type: BLOOD SPECIMENOrdering Facility: [facility] Address: [address] [place] [address] Performed By: #### 5 7021-8 ####[facility] [id number] [place] [address] [place] Lymphocytes (Bld) [#/Vol] 0.54 10*3/uL Low 1.00-4.00 [facility] Comment on above: Order Comment: Speci men Type: BLOOD SPECIMENOrdering Facility: [facility] Address: [address] [place] [address] Performed By: #### 5 7021-8 ####[facility] [id number] [place] [address] [place] Lymphocytes/100 WBC (Bld) 7.3 % Normal [facility] Comment on above: Order Comment: Speci men Type: BLOOD SPECIMENOrdering Facility: [facility] Address: [address] [place] [address] Performed By: #### 5 7021-8 ####[facility] [id number] [place] [address] [place] MCH (RBC) [Entitic mass] 30.7 pg Normal 26.0-34.0 [facility] Comment on above: Order Comment: Speci men Type: BLOOD SPECIMENOrdering Facility: [facility] Address: [address] [place] [address] Performed By: #### 5 7021-8 ####[facility] [id number] [place] [address] [place] MCHC (RBC) [Mass/Vol] 34.1 g/dL Normal 30.5-36.0 [facility] Comment on above: Order Comment: Speci men Type: BLOOD SPECIMENOrdering Facility: [facility] Address: [address] [place] [address] Performed By: #### 5 7021-8 ####[facility] [place] [id number] [place] [address] [place] MCV (RBC) [Entitic vol] 90.0 fL Normal 80.0-100.0 [facility] Comment on above: Order Comment: Speci men Type: BLOOD SPECIMENOrdering Facility: [facility] Address: [address] [place] [address] Performed By: #### 5 7021-8 ####[facility] [place] [id number] [place] [address] [place] Monocytes (Bld) [#/Vol] 1.06 10*3/uL High <0.87 [facility] Comment on above: Order Comment: Speci men Type: BLOOD SPECIMENOrdering Facility: [facility] Address: [address] [place] [address] Performed By: #### 5 7021-8 ####[facility] [id number] [place] [address] [place] Monocytes/100 WBC (Bld) 14.3 % Normal [facility] Comment on above: Order Comment: Speci men Type: BLOOD SPECIMENOrdering Facility: [facility] Address: [address] [place] [address] Performed By: #### 5 7021-8 ####[facility] [id number] [place] [address] [place] Neutrophils (Bld) [#/Vol] 5.36 10*3/uL Normal 1.45-7.50 [facility] Comment on above: Order Comment: Speci men Type: BLOOD SPECIMENOrdering Facility: [facility] Address: [address] [place] [address] Performed By: #### 5 7021-8 ####[facility] [id number] [place] [address] [place] Neutrophils/100 WBC (Bld) 72.1 % Normal [facility] Comment on above: Order Comment: Speci men Type: BLOOD SPECIMENOrdering Facility: [facility] Address: [address] [place] [address] Performed By: #### 5 7021-8 ####[facility] [id number] [place] [address] [place] Nucleated RBC (Bld) [#/Vol] 10*3/uL Normal <0.01 [facility] Comment on above: Order Comment: Speci men Type: BLOOD SPECIMENOrdering Facility: [facility] Address: [address] [place] [address] Performed By: #### 5 7021-8 ####[facility] [id number] [place] [address] [place] Nucleated RBC/100 WBC (Bld) [Ratio] 0.0 /100 WBC Normal [facility] Comment on above: Order Comment: Speci men Type: BLOOD SPECIMENOrdering Facility: [facility] Address: [address] [place] [address] Performed By: #### 5 7021-8 ####[facility] [id number] [place] [address] [place] Platelet mean volume (Bld) [Entitic vol] 9.9 fL Normal 9.0-12.7 [facility] Comment on above: Order Comment: Speci men Type: BLOOD SPECIMENOrdering Facility: [facility] Address: [address] [place] [address] Performed By: #### 5 7021-8 ####[facility] [id number] [place] [address] [place] Platelets (Bld) [#/Vol] 219 10*3/uL Normal 150-400 [facility] Comment on above: Order Comment: Speci men Type: BLOOD SPECIMENOrdering Facility: [facility] Address: [address] [place] [address] Performed By: #### 5 7021-8 ####[facility] [id number] [place] [address] [place] RBC (Bld) [#/Vol] 4.30 10*6/uL Normal 4.20-6.00 [facility] Comment on above: Order Comment: Speci men Type: BLOOD SPECIMENOrdering Facility: [facility] Address: [address] [place] [address] Performed By: #### 5 7021-8 ####[facility] [place] [id number] [place] [address] [place] WBC (Bld) [#/Vol] 7.43 10*3/uL Normal 3.70-11.00 [facility] Comment on above: Order Comment: Speci men Type: BLOOD SPECIMENOrdering Facility: [facility] Address: [address] [place] [address] Performed By: #### 5 7021-8 ####[facility] [id number] [place] [address] [place] CRP SerPl-mCncon 03-09-2024 CRP [Mass/Vol] 2.3 mg/dL High <0.9 [facility] Comment on above: Order Comment: Speci men Type: BLOOD SPECIMENOrdering Facility: [facility] Address: [address] [place] [address] Performed By: #### 1 988-5 ####[facility] LABCLIA [id number] [facility]ITALAnny [place] [address] [place] CRP [Mass/Vol]on 03-09-2024 Interpretation and review of laboratory results Abnormal [facility] Comprehensive metabolic 2000 panelon 03-09-2024 Albumin [Mass/Vol] 4.1 g/dL 3.9 - 4.9 g/dL [facility] ALP [Catalytic activity/Vol] 252 U/L High 38 - 113 U/L [facility] ALT [Catalytic activity/Vol] 20 U/L 10 - 54 U/L [facility] Anion gap [Moles/Vol] 13 mmol/L 9 - 18 mmol/L [facility] AST [Catalytic activity/Vol] 19 U/L 14 - 40 U/L [facility] Bilirubin [Mass/Vol] 0.2 mg/dL 0.2 - 1 .3 mg/dL [facility] Calcium [Mass/Vol] 9.4 mg/dL 8.5 - 10. 2 mg/dL [facility] Chloride [Moles/Vol] 103 mmol/L 97 - 10 5 mmol/L [facility] CO2 [Moles/Vol] 24 mmol/L 22 - 30 mmol/L [facility] Creatinine [Mass/Vol] 0.98 mg/dL 0.73 - 1.22 mg/dL [facility] GFR/1.73 sq M.predicted among non-blacks MDRD (S/P/Bld) [Vol rate/Area] 85 mL/min/{1.73_m2} - PINF [facility] Comment on above: Estimated Glomerular Filtration [...] 105 mg/dL High 74 - 99 mg/dL [facility] Comment on above: The [place] Di[employer] Association (ADA) provides guidance for [...] Standards of Medical Care in Diabetes 2016, [place] [employer]. Diabetes Care. 2016.39(Suppl 1). Interpretation and review of laboratory results Abnormal [facility] Potassium [Moles/Vol] 4.3 mmol/L 3.7 - 5.1 mmol/L [facility] Protein [Mass/Vol] 7.3 g/dL 6.3 - 8.0 g/dL [facility] Sodium [Moles/Vol] 140 mmol/L 136 - 144 mmol/L [facility] Urea nitrogen [Mass/Vol] 15 mg/dL 9 - 24 mg/dL [facility] Albumin [Mass/Vol] 4.1 g/dL Normal 3.9-4.9 [facility] Comment on above: Order Comment: Sara randle Type: BLOOD SPECIMENOrdering Facility: [facility] Address: [address] [place] [address] Performed By: #### 1 5152-2, 41679-3, 3083-1 ####[facility] [place] [id number] [place] [address] [place] ALP [Catalytic activity/Vol] 252 U/L High 38-113 [facility] Comment on above: Order Comment: Dottyi men Type: BLOOD SPECIMENOrdering Facility: [facility] Address: [address] [place] [address] Performed By: #### 1 5152-2, 01740-3, 3084-1 ####[facility] [id number] [place] [address] [place] ALT [Catalytic activity/Vol] 20 U/L Normal 10-54 [facility] Comment on above: Order Comment: Speci men Type: BLOOD SPECIMENOrdering Facility: [facility] Address: [address] [place] [address] Performed By: #### 1 5152-2, 55084-5, 3083-1 ####[facility] [id number] [place] [address] [place] Anion gap [Moles/Vol] 13 mmol/L Normal 9-18 [facility] Comment on above: Order Comment: Speci men Type: BLOOD SPECIMENOrdering Facility: [facility] Address: [address] [place] [address] Performed By: #### 1 5152-2, 44100-4, 3083-1 ####[facility] [id number] [place] [address] [place] AST [Catalytic activity/Vol] 19 U/L Normal 14-40 [facility] Comment on above: Order Comment: Speci men Type: BLOOD SPECIMENOrdering Facility: [facility] Address: [address] [place] [address] Performed By: #### 1 5152-2, 34686-7, 3083-1 ####[facility] [id number] [place] [address] [place] Bilirubin [Mass/Vol] 0.2 mg/dL Normal 0.2-1.3 [facility] Comment on above: Order Comment: Speci men Type: BLOOD SPECIMENOrdering Facility: [facility] Address: [address] [place] [address] Performed By: #### 1 5152-2, 38193-9, 3083-1 ####[facility] [id number] [place] [address] [place] Calcium [Mass/Vol] 9.4 mg/dL Normal 8.5-10.2 [facility] Comment on above: Order Comment: Speci men Type: BLOOD SPECIMENOrdering Facility: [facility] Address: [address] [place] [address] Performed By: #### 1 5152-2, 33805-9, 308-1 ####[facility] [id number] [place] [address] [place] Chloride [Moles/Vol] 103 mmol/L Normal 97-105 [facility] Comment on above: Order Comment: Speci men Type: BLOOD SPECIMENOrdering Facility: [facility] Address: [address] [place] [address] Performed By: #### 1 5152-2, 96428-4, 3083-1 ####[facility] [id number] [place] [address] [place] CO2 [Moles/Vol] 24 mmol/L Normal 22-30 [facility] Comment on above: Order Comment: Speci men Type: BLOOD SPECIMENOrdering Facility: [facility] Address: [address] [place] [address] Performed By: #### 1 5152-2, 80018-2, 3083-1 ####[facility] [id number] [place] [address] [place] Creatinine [Mass/Vol] 0.98 mg/dL Normal 0.73-1.22 [facility] Comment on above: Order Comment: Speci men Type: BLOOD SPECIMENOrdering Facility: [facility] Address: [address] [place] [address] Performed By: #### 1 5152-2, 21652-4, 308-1 ####[facility] [id number] [place] [address] [place] Creatinine and Glomerular filtration rate.predicted panel (S/P/Bld) 85 mL/min/1.73m??? Normal >=60 [facility] Comment on above: Order Comment: Speci men Type: BLOOD SPECIMENOrdering Facility: [facility] Address: [address] [place] [address] Result Comment: Carol mated Glomerular Filtration Rate [...] actual GFR. Performed By: #### 1 5152-2, 98392-7, 3083- ####[facility] [id number] [place] [address] [place] Glucose [Mass/Vol] 105 mg/dL High 74-99 [facility] Comment on above: Order Comment: Sara randle Type: BLOOD SPECIMENOrdering Facility: [facility] Address: [address] [place] [address] Result Comment: The [place] Diabetes Association (ADA) provides guidance for cutoff [...] Standards of Medical Care in Diabetes 2016, [place] [employer]. Diabetes Care. 2016.39(Suppl 1). Performed By: #### 1 5152-2, 40951-2, 3083- ####[facility] [id number] [place] [address] [place] Potassium [Moles/Vol] 4.3 mmol/L Normal 3.7-5.1 [facility] Comment on above: Order Comment: Sara randle Type: BLOOD SPECIMENOrdering Facility: [facility] Address: [address] [place] [address] Performed By: #### 1 5152-2, 03380-5, 3084-1 ####[facility] [id number] [place] [address] [place] Protein [Mass/Vol] 7.3 g/dL Normal 6.3-8.0 [facility] Comment on above: Order Comment: Speci men Type: BLOOD SPECIMENOrdering Facility: [facility] Address: [address] [place] [address] Performed By: #### 1 5152-2, 34611-2, 3084-1 ####[facility] [id number] [place] [address] [place] Sodium [Moles/Vol] 140 mmol/L Normal 136-144 [facility] Comment on above: Order Comment: Speci men Type: BLOOD SPECIMENOrdering Facility: [facility] Address: [address] [place] [address] Performed By: #### 1 5152-2, 56038-0, 308-1 ####[facility] [place] [id number] [place] [address] [place] Urea nitrogen [Mass/Vol] 15 mg/dL Normal 9-24 [facility] Comment on above: Order Comment: Speci men Type: BLOOD SPECIMENOrdering Facility: [facility] Address: [address] [place] [address] Performed By: #### 1 5152-2, 80906-6, 308-1 ####[facility] [id number] [place] [address] [place] IR CENTRAL CATH PLACEMENTon 03-09-2024 IR CENTRAL CATH PLACEMENT Normal [facility] LACTATE DEHYDROGENASEon 05-0 LDH [Catalytic activity/Vol] 214 U/L 135 - 225 U/L [facility] LDH SerPl-cCncon 03-09-2024 LDH [Catalytic activity/Vol] 214 U/L Normal 135-225 [facility] Comment on above: Order Comment: Speci men Type: BLOOD SPECIMENOrdering Facility: [facility] Address: [address] [place] [address] [place] [address] Performed By: #### 2 532-0 ####[facility] [place] [id number] [place] [address] [place] LDH [Catalytic activity/Vol] on 03-09-2024 Interpretation and review of laboratory results Normal [facility] MAGNESIUMon 03-09-2024 Magnesium [Mass/Vol] 2.1 mg/dL 1.7 - 2 .3 mg/dL [facility] Magnesium SerPl-mCncon 03-09 Magnesium [Mass/Vol] 2.1 mg/dL Normal 1.7-2.3 [facility] Comment on above: Order Comment: Speci men Type: BLOOD SPECIMENOrdering Facility: [facility] Address: [address] [place] [address] Performed By: #### 1 9123-9, 2777-1 ####[facility] [id number] [place] [address] [place] No Panel Informationon 03-09 Interpretation and review of laboratory results Normal [facility] Interpretation and review of laboratory results Normal [facility] PHOSPHORUS INORGANICon 03-09 Phosphate [Mass/Vol] 3.6 mg/dL 2.7 - 4 .8 mg/dL [facility] Phosphate SerPl-mCncon 03-09 Phosphate [Mass/Vol] 3.6 mg/dL Normal 2.7-4.8 [facility] Comment on above: Order Comment: Speci men Type: BLOOD SPECIMENOrdering Facility: [facility] Address: [address] [place], [place] [id number] Performed By: #### 1 [id number], [id number] ####[facility] [id number] [place] [address] [place] URIC ACIDon 03-09-2024 Urate [Mass/Vol] 6.7 mg/dL 4.0 - 8.1 mg/dL [facility] Urate SerPl-mCncon Urate [Mass/Vol] 6.7 mg/dL Normal 4.0-8.1 [facility] Comment on above: Order Comment: Speci men Type: BLOOD SPECIMENOrdering Facility: [facility] Address: [address] [place] [address] Performed By: #### 1 5152-2, 85847-3, 3084-1 ####[facility] [id number] [place] [address] [place] BLOOD TB SCREENon 03-08-2024 M. tuberculosis tuberculin stim IFN-g Ql (Bld) Negative Normal [facility] Comment on above: Order Comment: Speci men Type: BLOOD SPECIMENOrdering Facility: [facility] Address: [address] [place] [address] Performed By: #### I NFTBP ####[facility] LABCLIA [id number] [place] [address] [place] MITOGEN MINUS NIL >9.95 Normal >=0.50 [facility] Comment on above: Order Comment: Speci men Type: BLOOD SPECIMENOrdering Facility: [facility] Address: [address] [place] [address] Performed By: #### I NFTBP ####[facility] LABIA [id number] [place] [address] [place] TB GAMMA INTERPRETATION Normal [facility] Comment on above: Order Comment: Speci men Type: BLOOD SPECIMENOrdering Facility: [facility] Address: [address] [place] [address] Performed By: #### I NFTBP ####[facility] LABCLIA [id number] [place] [address] [place] TB NIL 0.05 IU/mL Normal <=8.00 [facility] Comment on above: Order Comment: Speci men Type: BLOOD SPECIMENOrdering Facility: [facility] Address: [address] [place] [address] Performed By: #### I NFTBP ####[facility] LABCLIA [id number] [address] [place] TB1 AG MINUS NIL 0.00 IU/mL Normal <0.35 [facility] Comment on above: Order Comment: Speci men Type: BLOOD SPECIMENOrdering Facility: [facility] Address: [address] [place] [address] Performed By: #### I NFTBP ####[facility] LABCLIA [id number] [address] [place] TB2 AG MINUS NIL 0.00 IU/mL Normal <0.35 [facility] Comment on above: Order Comment: Speci men Type: BLOOD SPECIMENOrdering Facility: [facility] Address: [address] [place] [address] Performed By: #### I NFTBP ####[facility] LABIA [id number] [place] [address] [place] C-REACTIVE PROTEINon 024 CRP [Mass/Vol] 1.8 mg/dL High [facility] mg/dL [facility] CBC W Auto Differential pane l (Bld)on 03-08-2024 Basophils (Bld) [#/Vol] 0.07 10*3/uL [facility] Basophils/100 WBC (Bld) 0.9 % [facility] Differential cell count method Nom (Bld) Auto [facility] Eosinophils (Bld) [#/Vol] 0.44 10*3/uL [facility] Eosinophils/100 WBC (Bld) 5.5 % [facility] Erythrocyte distribution width (RBC) [Ratio] 12.7 % 11.5 - 15.0 % [facility] Hematocrit (Bld) [Volume fraction] 40.1 % 39.0 - 51.0 % [facility] Hemoglobin (Bld) [Mass/Vol] 13.8 g/dL 13.0 - 17.0 g/dL [facility] Immature granulocytes (Bld) [#/Vol] 0.03 10*3/uL [facility] Immature granulocytes/100 WBC (Bld) 0.4 % [facility] Interpretation and review of laboratory results Abnormal [facility] Lymphocytes (Bld) [#/Vol] 0.48 10*3/uL Low [facility] Lymphocytes/100 WBC (Bld) 6.0 % [facility] MCH (RBC) [Entitic mass] 31.1 pg 26.0 - 34.0 pg [facility] MCHC (RBC) [Mass/Vol] 34.4 g/dL 30.5 - 36.0 g/dL [facility] MCV (RBC) [Entitic vol] 90.3 fL 80.0 - 100.0 fL [facility] Monocytes (Bld) [#/Vol] 1.16 10*3/uL High [facility] Monocytes/100 WBC (Bld) 14.4 % [facility] Neutrophils (Bld) [#/Vol] 5.86 10*3/uL [facility] Neutrophils/100 WBC (Bld) 72.8 % [facility] Nucleated RBC (Bld) [#/Vol] [facility] Nucleated RBC/100 WBC (Bld) [Ratio] 0.0 % /100 WBC [facility] Platelet mean volume (Bld) [Entitic vol] 11.0 fL 9.0 - 12.7 fL [facility] Platelets (Bld) [#/Vol] 173 10*3/uL [facility] RBC (Bld) [#/Vol] 4.44 10*6/uL 4.20 - 6.00 m/uL [facility] WBC (Bld) [#/Vol] 8.04 10*3/uL [facility] Basophils (Bld) [#/Vol] 0.07 10*3/uL Normal <0.11 [facility] Comment on above: Order Comment: Speci men Type: BLOOD SPECIMENOrdering Facility: [facility] Address: [address] [place] [address] Performed By: #### 5 7021-8 ####[facility] [id number] [place] [address] [place] Basophils/100 WBC (Bld) 0.9 % Normal [facility] Comment on above: Order Comment: Speci men Type: BLOOD SPECIMENOrdering Facility: [facility] Address: [address] [place] [address] Performed By: #### 5 7021-8 ####[facility] [id number] [place] [address] [place] Differential cell count method Nom (Bld) Auto Normal [facility] Comment on above: Order Comment: Speci men Type: BLOOD SPECIMENOrdering Facility: [facility] Address: [address] [place] [address] Performed By: #### 5 7021-8 ####[facility] [id number] [place] [address] [place] Eosinophils (Bld) [#/Vol] 0.44 10*3/uL Normal <0.46 [facility] Comment on above: Order Comment: Speci men Type: BLOOD SPECIMENOrdering Facility: [facility] Address: [address] [place] [address] Performed By: #### 5 7021-8 ####[facility] [id number] [place] [address] [place] Eosinophils/100 WBC (Bld) 5.5 % Normal [facility] Comment on above: Order Comment: Speci men Type: BLOOD SPECIMENOrdering Facility: [facility] Address: [address] [place] [address] Performed By: #### 5 7021-8 ####[facility] [id number] [place] [address] [place] Erythrocyte distribution width (RBC) [Ratio] 12.7 % Normal 11.5-15.0 [facility] Comment on above: Order Comment: Speci men Type: BLOOD SPECIMENOrdering Facility: [facility] Address: [address] [place], [place] [address] Performed By: #### 5 7021-8 ####[facility] [id number] [place] [address] [place] Hematocrit (Bld) [Volume fraction] 40.1 % Normal 39.0-51.0 [facility] Comment on above: Order Comment: Speci men Type: BLOOD SPECIMENOrdering Facility: [facility] Address: [address] [place] [address] Performed By: #### 5 7021-8 ####[facility] [id number] [place] [address] [place] Hemoglobin (Bld) [Mass/Vol] 13.8 g/dL Normal 13.0-17.0 [facility] Comment on above: Order Comment: Speci men Type: BLOOD SPECIMENOrdering Facility: [facility] Address: [address] [place] [address] Performed By: #### 5 7021-8 ####[facility] [id number] [place] [address] [place] Immature granulocytes (Bld) [#/Vol] 0.03 10*3/uL Normal <0.10 [facility] Comment on above: Order Comment: Speci men Type: BLOOD SPECIMENOrdering Facility: [facility] Address: [address] [place] [address] Performed By: #### 5 7021-8 ####[facility] [id number] [place] [address] [place] Immature granulocytes/100 WBC (Bld) 0.4 % Normal [facility] Comment on above: Order Comment: Speci men Type: BLOOD SPECIMENOrdering Facility: [facility] Address: [address] [place] [address] Performed By: #### 5 7021-8 ####[facility] [id number] [place] [id number] [address] [place] Lymphocytes (Bld) [#/Vol] 0.48 10*3/uL Low 1.00-4.00 [facility] Comment on above: Order Comment: Speci men Type: BLOOD SPECIMENOrdering Facility: [facility] Address: [address] [place] [address] Performed By: #### 5 7021-8 ####[facility] [id number] [place] [address] [place] Lymphocytes/100 WBC (Bld) 6.0 % Normal [facility] Comment on above: Order Comment: Speci men Type: BLOOD SPECIMENOrdering Facility: [facility] Address: [address] [place] [address] Performed By: #### 5 7021-8 ####[facility] [place] [id number] [place] [address] [place] MCH (RBC) [Entitic mass] 31.1 pg Normal 26.0-34.0 [facility] Comment on above: Order Comment: Speci men Type: BLOOD SPECIMENOrdering Facility: [facility] Address: [address] [place] [address] Performed By: #### 5 7021-8 ####[facility] [place] [id number] [place] [address] [place] MCHC (RBC) [Mass/Vol] 34.4 g/dL Normal 30.5-36.0 [facility] Comment on above: Order Comment: Speci men Type: BLOOD SPECIMENOrdering Facility: [facility] Address: [address] [place] [address] Performed By: #### 5 7021-8 ####[facility] [place] [id number] [place] [address] [place] MCV (RBC) [Entitic vol] 90.3 fL Normal 80.0-100.0 [facility] Comment on above: Order Comment: Speci men Type: BLOOD SPECIMENOrdering Facility: [facility] Address: [address] [place] [address] Performed By: #### 5 7021-8 ####[facility] [id number] [place] [address] [place] Monocytes (Bld) [#/Vol] 1.16 10*3/uL High <0.87 [facility] Comment on above: Order Comment: Speci men Type: BLOOD SPECIMENOrdering Facility: [facility] Address: [address] [place] [address] Performed By: #### 5 7021-8 ####[facility] [id number] [place] [address] [place] Monocytes/100 WBC (Bld) 14.4 % Normal [facility] Comment on above: Order Comment: Speci men Type: BLOOD SPECIMENOrdering Facility: [facility] Address: [address] [place] [address] Performed By: #### 5 7021-8 ####[facility] [id number] [place] [address] [place] Neutrophils (Bld) [#/Vol] 5.86 10*3/uL Normal 1.45-7.50 [facility] Comment on above: Order Comment: Speci men Type: BLOOD SPECIMENOrdering Facility: [facility] Address: [address] [place] [address] Performed By: #### 5 7021-8 ####[facility] [id number] [place] [address] [place] Neutrophils/100 WBC (Bld) 72.8 % Normal [facility] Comment on above: Order Comment: Speci men Type: BLOOD SPECIMENOrdering Facility: [facility] Address: [address] [place] [address] Performed By: #### 5 7021-8 ####[facility] [id number] [place] [address] [place] Nucleated RBC (Bld) [#/Vol] 10*3/uL Normal <0.01 [facility] Comment on above: Order Comment: Speci men Type: BLOOD SPECIMENOrdering Facility: [facility] Address: [address] [place] [address] Performed By: #### 5 7021-8 ####[facility] [id number] [place] [address] [place] Nucleated RBC/100 WBC (Bld) [Ratio] 0.0 /100 WBC Normal [facility] Comment on above: Order Comment: Speci men Type: BLOOD SPECIMENOrdering Facility: [facility] Address: [address] [place] [address] Performed By: #### 5 7021-8 ####[facility] [place] [id number] [place] [address] [place] Platelet mean volume (Bld) [Entitic vol] 11.0 fL Normal 9.0-12.7 [facility] Comment on above: Order Comment: Speci men Type: BLOOD SPECIMENOrdering Facility: [facility] Address: [address] [place] [address] Performed By: #### 5 7021-8 ####[facility] [place] [id number] [place] [address] [place] Platelets (Bld) [#/Vol] 173 10*3/uL Normal 150-400 [facility] Comment on above: Order Comment: Speci men Type: BLOOD SPECIMENOrdering Facility: [facility] Address: [address] [place] [address] Performed By: #### 5 7021-8 ####[facility] [id number] [place] [address] [place] RBC (Bld) [#/Vol] 4.44 10*6/uL Normal 4.20-6.00 [facility] Comment on above: Order Comment: Speci men Type: BLOOD SPECIMENOrdering Facility: [facility] Address: [address] [place] [address] Performed By: #### 5 7021-8 ####[facility] [id number] [place] [address] [place] WBC (Bld) [#/Vol] 8.04 10*3/uL Normal 3.70-11.00 [facility] Comment on above: Order Comment: Speci men Type: BLOOD SPECIMENOrdering Facility: [facility] Address: [address] [place] [address] Performed By: #### 5 7021-8 ####[facility] [id number] [place] [address] [place] CNOVSPon 03-08-2024 CNOVSP Normal [facility] CRP SerPl-mCncon 03-08-2024 CRP [Mass/Vol] 1.8 mg/dL High <0.9 [facility] Comment on above: Order Comment: Speci men Type: BLOOD SPECIMENOrdering Facility: [facility] Address: [address] [place] [address] Performed By: #### 1 988-5 ####[facility] [id number] [place] [address] [place] CRP [Mass/Vol]on 03-08-2024 Interpretation and review of laboratory results Abnormal [facility] Comprehensive metabolic 2000 panelon 03-08-2024 Albumin [Mass/Vol] 4.3 g/dL 3.9 - 4.9 g/dL [facility] ALP [Catalytic activity/Vol] 238 U/L High 38 - 113 U/L [facility] ALT [Catalytic activity/Vol] 18 U/L 10 - 54 U/L [facility] Anion gap [Moles/Vol] 11 mmol/L 9 - 18 mmol/L [facility] AST [Catalytic activity/Vol] 17 U/L 14 - 40 U/L [facility] Bilirubin [Mass/Vol] 0.2 mg/dL 0.2 - 1 .3 mg/dL [facility] Calcium [Mass/Vol] 9.9 mg/dL 8.5 - 10. 2 mg/dL [facility] Chloride [Moles/Vol] 104 mmol/L 97 - 10 5 mmol/L [facility] CO2 [Moles/Vol] 25 mmol/L 22 - 30 mmol/L [facility] Creatinine [Mass/Vol] 0.96 mg/dL 0.73 - 1.22 mg/dL [facility] GFR/1.73 sq M.predicted among non-blacks MDRD (S/P/Bld) [Vol rate/Area] 87 mL/min/{1.73_m2} - PINF [facility] Comment on above: Estimated Glomerular Filtration [...] [Mass/Vol] 93 mg/dL 74 - 99 mg/dL [facility] Comment on above: The [place] Di[employer] Association (ADA) provides guidance for [...] Standards of Medical Care in Diabetes 2016, [place] [employer]. Diabetes Care. 2016.39(Suppl 1). Interpretation and review of laboratory results Abnormal [facility] Potassium [Moles/Vol] 4.2 mmol/L 3.7 - 5.1 mmol/L [facility] Protein [Mass/Vol] 7.6 g/dL 6.3 - 8.0 g/dL [facility] Sodium [Moles/Vol] 140 mmol/L 136 - 144 mmol/L [facility] Urea nitrogen [Mass/Vol] 16 mg/dL 9 - 24 mg/dL [facility] Albumin [Mass/Vol] 4.3 g/dL Normal 3.9-4.9 [facility] Comment on above: Order Comment: Speci men Type: BLOOD SPECIMENOrdering Facility: [facility] Address: [address] [place] [address] Performed By: #### 2 4323-8, 99985-2, 3083-1 ####[facility] [id number] [place] [address] [place] ALP [Catalytic activity/Vol] 238 U/L High 38-113 [facility] Comment on above: Order Comment: Speci men Type: BLOOD SPECIMENOrdering Facility: [facility] Address: [address] [place] [address] Performed By: #### 2 4323-8, 99977-9, 3083-1 ####[facility] [id number] [place] [address] [place] ALT [Catalytic activity/Vol] 18 U/L Normal 10-54 [facility] Comment on above: Order Comment: Speci men Type: BLOOD SPECIMENOrdering Facility: [facility] Address: [address] [place] [address] Performed By: #### 2 4323-8, 26979-8, 3083- ####[facility] [id number] [place] [address] [place] Anion gap [Moles/Vol] 11 mmol/L Normal 9-18 [facility] Comment on above: Order Comment: Speci men Type: BLOOD SPECIMENOrdering Facility: [facility] Address: [address] [place] [address] Performed By: #### 2 4323-8, 53174-8, 4-1 ####[facility] [id number] [place] [address] [place] AST [Catalytic activity/Vol] 17 U/L Normal 14-40 [facility] Comment on above: Order Comment: Speci men Type: BLOOD SPECIMENOrdering Facility: [facility] Address: [address] [place] [address] Performed By: #### 2 4323-8, 02015-5, 3083-11 ####[facility] [id number] [place] [address] [place] Bilirubin [Mass/Vol] 0.2 mg/dL Normal 0.2-1.3 [facility] Comment on above: Order Comment: Speci men Type: BLOOD SPECIMENOrdering Facility: [facility] Address: [address] [place] [address] Performed By: #### 2 4323-8, , 3083-11 ####[facility] [place] [id number] [place] [address] [place] Calcium [Mass/Vol] 9.9 mg/dL Normal 8.5-10.2 [facility] Comment on above: Order Comment: Speci men Type: BLOOD SPECIMENOrdering Facility: [facility] Address: [address] [place] [address] Performed By: #### 2 4323-8, , 3083-11 ####[facility] [place] [id number] [place] [address] [place] Chloride [Moles/Vol] 104 mmol/L Normal 97-105 [facility] Comment on above: Order Comment: Speci men Type: BLOOD SPECIMENOrdering Facility: [facility] Address: [address] [place] [address] Performed By: #### 2 4323-8, , 3083-11 ####[facility] [id number] [place] [address] [place] CO2 [Moles/Vol] 25 mmol/L Normal 22-30 [facility] Comment on above: Order Comment: Speci men Type: BLOOD SPECIMENOrdering Facility: [facility] Address: [address] [id number] Performed By: #### 2 4323-8, , 3083-11 ####[facility] [id number] [address] [address] [place] Creatinine [Mass/Vol] 0.96 mg/dL Normal 0.73-1.22 [facility] Comment on above: Order Comment: Speci men Type: BLOOD SPECIMENOrdering Facility: [facility] Address: [address] [place] [address] Performed By: #### 2 4323-8, , 3083-11 ####[facility] [id number] [place] [address] [place] Creatinine and Glomerular filtration rate.predicted panel (S/P/Bld) 87 mL/min/1.73m??? Normal >=60 [facility] Comment on above: Order Comment: Speci men Type: BLOOD SPECIMENOrdering Facility: [facility] Address: [address] [place] [address] Result Comment: Carol mated Glomerular Filtration Rate [...] ####[facility] [id number] [place] [address] [place] Glucose [Mass/Vol] 93 mg/dL Normal 74-99 [facility] Comment on above: Order Comment: Speci men Type: BLOOD SPECIMENOrdering Facility: [facility] Address: [address] [place] [address] Result Comment: The [place] Diabetes Association (ADA) provides guidance for cutoff [...] Standards of Medical Care in Diabetes 2016, [place] [employer]. Diabetes Care. 2016.39(Suppl 1). Performed By: #### 2 4323-8, 27031-1, 3083- ####[facility] [id number] [place] [address] [place] Potassium [Moles/Vol] 4.2 mmol/L Normal 3.7-5.1 [facility] Comment on above: Order Comment: Speci men Type: BLOOD SPECIMENOrdering Facility: [facility] Address: [address] [place] [address] Performed By: #### 2 4323-8, , 3083-11 ####[facility] [id number] [place] [address] [place] Protein [Mass/Vol] 7.6 g/dL Normal 6.3-8.0 [facility] Comment on above: Order Comment: Speci men Type: BLOOD SPECIMENOrdering Facility: [facility] Address: [address] [place] [address] Performed By: #### 2 4323-8, , 3083-11 ####[facility] [id number] [place] [address] [place] Sodium [Moles/Vol] 140 mmol/L Normal 136-144 [facility] Comment on above: Order Comment: Speci men Type: BLOOD SPECIMENOrdering Facility: [facility] Address: [address] [place] [address] Performed By: #### 2 4323-8, 24568-6, 4-1 ####[facility] [id number] [place] [address] [place] Urea nitrogen [Mass/Vol] 16 mg/dL Normal 9-24 [facility] Comment on above: Order Comment: Speci men Type: BLOOD SPECIMENOrdering Facility: [facility] Address: [address] [place] [address] Performed By: #### 2 4323-8, 06421-5, 3083-1 ####[facility] [id number] [place] [address] [place] LACTATE DEHYDROGENASEon 05-0 LDH [Catalytic activity/Vol] 228 U/L High 135 - 225 U/L [facility] LDH SerPl-cCncon 03-08-2024 LDH [Catalytic activity/Vol] 228 U/L High 135-225 [facility] Comment on above: Order Comment: Speci men Type: BLOOD SPECIMENOrdering Facility: [facility] Address: [address] [place] [address] Performed By: #### 2 532-0 ####[facility] [id number] [place] [address] [place] LDH [Catalytic activity/Vol] on 03-08-2024 Interpretation and review of laboratory results Abnormal [facility] MAGNESIUMon 03-08-2024 Magnesium [Mass/Vol] 2.1 mg/dL 1.7 - 2 .3 mg/dL [facility] Magnesium SerPl-mCncon 03-08 Magnesium [Mass/Vol] 2.1 mg/dL Normal 1.7-2.3 [facility] Comment on above: Order Comment: Speci men Type: BLOOD SPECIMENOrdering Facility: [facility] Address: [address] [place] [address] Performed By: #### 2 4323-8, 78499-1, 4-1 ####[facility] [place] [id number] [place] [id number] [place] No Panel Informationon 03-08 Interpretation and review of laboratory results Normal [facility] PHOSPHORUS INORGANICon 03-08 Phosphate [Mass/Vol] 3.6 mg/dL 2.7 - 4 .8 mg/dL [facility] Phosphate SerPl-mCncon 03-08 Phosphate [Mass/Vol] 3.6 mg/dL Normal 2.7-4.[facility] Comment on above: Order Comment: Speci men Type: BLOOD SPECIMENOrdering Facility: [facility] Address: [address] [place] [address] Performed By: #### 2 777-1 ####[facility] [id number] [place] [address] [place] Phosphate [Mass/Vol]on 03-08 Interpretation and review of laboratory results Normal [facility] URIC ACIDon 03-08-2024 Urate [Mass/Vol] 6.5 mg/dL 4.0 - 8.1 mg/dL [facility] Urate [facility] Urate [Mass/Vol] 6.5 mg/dL Normal 4.0-8.1 [facility] Comment on above: Order Comment: Speci men Type: BLOOD SPECIMENOrdering Facility: [facility] Address: [address] [place] [address] Performed By: #### 2 4323-8, 14981-1, 3084-1 ####[facility] [id number] [place] [id number] [place] NURSING PROGon 03-02-2024 NURSING PROG Normal [facility] CNPNon 03-01-2024 CNPN Normal [facility] CNPNon 02-26-2024 CNPN Normal [facility] CNPNon 02-25-2024 CNPN Normal [facility] ACTIVATED PARTIAL THROMBOPLA STIN TIMEon 04-23-2024 aPTT Coag (PPP) [Time] 24.0 s [facility] CBC W Auto Differential pane l (Bld)on 02-24-2024 Basophils (Bld) [#/Vol] 0.07 10*3/uL [facility] Basophils/100 WBC (Bld) 1.2 % [facility] Differential cell count method Nom (Bld) Auto [facility] Eosinophils (Bld) [#/Vol] 0.27 10*3/uL [facility] Eosinophils/100 WBC (Bld) 4.5 % [facility] Erythrocyte distribution width (RBC) [Ratio] 13.2 % 11.5 - 15.0 % [facility] Hematocrit (Bld) [Volume fraction] 40.2 % 39.0 - 51.0 % [facility] Hemoglobin (Bld) [Mass/Vol] 13.3 g/dL 13.0 - 17.0 g/dL [facility] Immature granulocytes (Bld) [#/Vol] 0.03 10*3/uL [facility] Immature granulocytes/100 WBC (Bld) 0.5 % [facility] Interpretation and review of laboratory results Abnormal [facility] Lymphocytes (Bld) [#/Vol] 0.46 10*3/uL Low [facility] Lymphocytes/100 WBC (Bld) 7.6 % [facility] MCH (RBC) [Entitic mass] 31.1 pg 26.0 - 34.0 pg [facility] MCHC (RBC) [Mass/Vol] 33.1 g/dL 30.5 - 36.0 g/dL [facility] MCV (RBC) [Entitic vol] 93.9 fL 80.0 - 100.0 fL [facility] Monocytes (Bld) [#/Vol] 0.80 10*3/uL [facility] Monocytes/100 WBC (Bld) 13.3 % [facility] Neutrophils (Bld) [#/Vol] 4.39 10*3/uL [facility] Neutrophils/100 WBC (Bld) 72.9 % [facility] Nucleated RBC (Bld) [#/Vol] [facility] Nucleated RBC/100 WBC (Bld) [Ratio] 0.0 % /100 WBC [facility] Platelet mean volume (Bld) [Entitic vol] 9.8 fL 9.0 - 12.7 fL [facility] Platelets (Bld) [#/Vol] 243 10*3/uL [facility] RBC (Bld) [#/Vol] 4.28 10*6/uL 4.20 - 6.00 m/uL [facility] WBC (Bld) [#/Vol] 6.02 10*3/uL [facility] Basophils (Bld) [#/Vol] 0.07 10*3/uL Normal <0.11 [facility] Comment on above: Order Comment: Speci men Type: BLOOD SPECIMENOrdering Facility: [facility] Address: [address] [place] [address] Performed By: #### 5 7021-8 ####[facility] [id number] [place] [address] [place] Basophils/100 WBC (Bld) 1.2 % Normal [facility] Comment on above: Order Comment: Speci men Type: BLOOD SPECIMENOrdering Facility: [facility] Address: [address] [place] [address] Performed By: #### 5 7021-8 ####[facility] [id number] [place] [address] [place] Differential cell count method Nom (Bld) Auto Normal [facility] Comment on above: Order Comment: Speci men Type: BLOOD SPECIMENOrdering Facility: [facility] Address: [address] [place] [address] Performed By: #### 5 7021-8 ####[facility] [place] [id number] [place] [address] [place] Eosinophils (Bld) [#/Vol] 0.27 10*3/uL Normal <0.46 [facility] Comment on above: Order Comment: Speci men Type: BLOOD SPECIMENOrdering Facility: [facility] Address: [address] [place] [address] Performed By: #### 5 7021-8 ####[facility] [id number] [place] [address] [place] Eosinophils/100 WBC (Bld) 4.5 % Normal [facility] Comment on above: Order Comment: Speci men Type: BLOOD SPECIMENOrdering Facility: [facility] Address: [address] [place] [address] Performed By: #### 5 7021-8 ####[facility] [id number] [place] [address] [place] Erythrocyte distribution width (RBC) [Ratio] 13.2 % Normal 11.5-15.0 [facility] Comment on above: Order Comment: Speci men Type: BLOOD SPECIMENOrdering Facility: [facility] Address: [address] [place] [address] Performed By: #### 5 7021-8 ####[facility] [place] [id number] [place] [address] [place] Hematocrit (Bld) [Volume fraction] 40.2 % Normal 39.0-51.0 [facility] Comment on above: Order Comment: Speci men Type: BLOOD SPECIMENOrdering Facility: [facility] Address: [address] [place] [address] Performed By: #### 5 7021-8 ####[facility] [id number] [place] [address] [place] Hemoglobin (Bld) [Mass/Vol] 13.3 g/dL Normal 13.0-17.0 [facility] Comment on above: Order Comment: Speci men Type: BLOOD SPECIMENOrdering Facility: [facility] Address: [address] [place] [address] Performed By: #### 5 7021-8 ####[facility] [id number] [place] [address] [place] Immature granulocytes (Bld) [#/Vol] 0.03 10*3/uL Normal <0.10 [facility] Comment on above: Order Comment: Speci men Type: BLOOD SPECIMENOrdering Facility: [facility] Address: [address] [place] [address] Performed By: #### 5 7021-8 ####[facility] [id number] [place] [address] [place] [facility] Immature granulocytes/100 WBC (Bld) 0.5 % Normal [facility] Comment on above: Order Comment: Speci men Type: BLOOD SPECIMENOrdering Facility: [facility] Address: [address] [place] [address] Performed By: #### 5 7021-8 ####[facility] [id number] [place] [address] [place] Lymphocytes (Bld) [#/Vol] 0.46 10*3/uL Low 1.00-4.00 [facility] Comment on above: Order Comment: Speci men Type: BLOOD SPECIMENOrdering Facility: [facility] Address: [address] [place] [address] Performed By: #### 5 7021-8 ####[facility] [place] [id number] [place] [address] [place] [facility] Lymphocytes/100 WBC (Bld) 7.6 % Normal [facility] Comment on above: Order Comment: Speci men Type: BLOOD SPECIMENOrdering Facility: [facility] Address: [address] [place] [address] Performed By: #### 5 7021-8 ####[facility] [place] [id number] [place] [address] [place] MCH (RBC) [Entitic mass] 31.1 pg Normal 26.0-34.0 [facility] Comment on above: Order Comment: Speci men Type: BLOOD SPECIMENOrdering Facility: [facility] Address: [address] [place] [address] Performed By: #### 5 7021-8 ####[facility] [id number] [place] [address] [place] MCHC (RBC) [Mass/Vol] 33.1 g/dL Normal 30.5-36.0 [facility] Comment on above: Order Comment: Speci men Type: BLOOD SPECIMENOrdering Facility: [facility] Address: [address] [place] [address] Performed By: #### 5 7021-8 ####[facility] [id number] [place] [address] [place] MCV (RBC) [Entitic vol] 93.9 fL Normal 80.0-100.0 [facility] Comment on above: Order Comment: Speci men Type: BLOOD SPECIMENOrdering Facility: [facility] Address: [address] [place] [address] Performed By: #### 5 7021-8 ####[facility] [id number] [place] [address] [place] Monocytes (Bld) [#/Vol] 0.80 10*3/uL Normal <0.87 [facility] Comment on above: Order Comment: Speci men Type: BLOOD SPECIMENOrdering Facility: [facility] Address: [address] [place] [address] Performed By: #### 5 7021-8 ####[facility] [place] [id number] [place] [address] [place] Monocytes/100 WBC (Bld) 13.3 % Normal [facility] Comment on above: Order Comment: Speci men Type: BLOOD SPECIMENOrdering Facility: [facility] Address: [address] [place] [address] Performed By: #### 5 7021-8 ####[facility] [id number] [place] [address] [place] Neutrophils (Bld) [#/Vol] 4.39 10*3/uL Normal 1.45-7.50 [facility] Comment on above: Order Comment: Speci men Type: BLOOD SPECIMENOrdering Facility: [facility] Address: [address] [place] [address] Performed By: #### 5 7021-8 ####[facility] [id number] [place] [address] [place] Neutrophils/100 WBC (Bld) 72.9 % Normal [facility] Comment on above: Order Comment: Speci men Type: BLOOD SPECIMENOrdering Facility: [facility] Address: [address] [place] [address] Performed By: #### 5 7021-8 ####[facility] [id number] [place] [address] [place] Nucleated RBC (Bld) [#/Vol] 10*3/uL Normal <0.01 [facility] Comment on above: Order Comment: Speci men Type: BLOOD SPECIMENOrdering Facility: [facility] Address: [address] [place] [address] Performed By: #### 5 7021-8 ####[facility] [id number] [place] [address] [place] Nucleated RBC/100 WBC (Bld) [Ratio] 0.0 /100 WBC Normal [facility] Comment on above: Order Comment: Speci men Type: BLOOD SPECIMENOrdering Facility: [facility] Address: [address] [place] [address] Performed By: #### 5 7021-8 ####[facility] [id number] [place] [address] [place] Platelet mean volume (Bld) [Entitic vol] 9.8 fL Normal 9.0-12.7 [facility] Comment on above: Order Comment: Speci men Type: BLOOD SPECIMENOrdering Facility: [facility] Address: [address] [place] [address] Performed By: #### 5 7021-8 ####[facility] [id number] [place] [address] [place] Platelets (Bld) [#/Vol] 243 10*3/uL Normal 150-400 [facility] Comment on above: Order Comment: Speci men Type: BLOOD SPECIMENOrdering Facility: [facility] Address: [address] [place] [address] Performed By: #### 5 7021-8 ####[facility] [id number] [place] [address] [place] RBC (Bld) [#/Vol] 4.28 10*6/uL Normal 4.20-6.00 [facility] Comment on above: Order Comment: Speci men Type: BLOOD SPECIMENOrdering Facility: [facility] Address: [address] [place] [address] Performed By: #### 5 7021-8 ####[facility] [id number] [place] [address] [place] WBC (Bld) [#/Vol] 6.02 10*3/uL Normal 3.70-11.00 [facility] Comment on above: Order Comment: Speci men Type: BLOOD SPECIMENOrdering Facility: [facility] Address: [address] [place] [address] Performed By: #### 5 7021-8 ####[facility] [id number] [place] [address] [place] CNNURSEon 02-24-2024 CNNURSE Normal [facility] Comprehensive metabolic 2000 panelon 02-24-2024 Albumin [Mass/Vol] 4.2 g/dL 3.9 - 4.9 g/dL [facility] ALP [Catalytic activity/Vol] 201 U/L High 38 - 113 U/L [facility] ALT [Catalytic activity/Vol] 18 U/L 10 - 54 U/L [facility] Anion gap [Moles/Vol] 11 mmol/L 9 - 18 mmol/L [facility] AST [Catalytic activity/Vol] 19 U/L 14 - 40 U/L [facility] Bilirubin [Mass/Vol] 0.2 mg/dL 0.2 - 1 .3 mg/dL [facility] Calcium [Mass/Vol] 9.6 mg/dL 8.5 - 10. 2 mg/dL [facility] Chloride [Moles/Vol] 107 mmol/L High 97 - 10 5 mmol/L [facility] CO2 [Moles/Vol] 23 mmol/L 22 - 30 mmol/L [facility] Creatinine [Mass/Vol] 0.94 mg/dL 0.73 - 1.22 mg/dL [facility] GFR/1.73 sq M.predicted among non-blacks MDRD (S/P/Bld) [Vol rate/Area] 89 mL/min/{1.73_m2} - PINF [facility] Comment on above: Estimated Glomerular Filtration [...] 100 mg/dL High 74 - 99 mg/dL [facility] Comment on above: The [place] Diab[employer] Association (ADA) provides guidance for [...] Standards of Medical Care in Diabetes 2016, [place] [employer]. Diabetes Care. 2016.39(Suppl 1). Interpretation and review of laboratory results Abnormal [facility] Potassium [Moles/Vol] 4.6 mmol/L 3.7 - 5.1 mmol/L [facility] Protein [Mass/Vol] 7.5 g/dL 6.3 - 8.0 g/dL [facility] Sodium [Moles/Vol] 141 mmol/L 136 - 144 mmol/L [facility] Urea nitrogen [Mass/Vol] 15 mg/dL 9 - 24 mg/dL [facility] Albumin [Mass/Vol] 4.2 g/dL Normal 3.9-4.9 [facility] Comment on above: Order Comment: Speci men Type: BLOOD SPECIMENOrdering Facility: [facility] Address: [address] [place] [address] Performed By: #### 2 4323-8, ####[facility] [id number] [place] [address] [place] ALP [Catalytic activity/Vol] 201 U/L High 38-113 [facility] Comment on above: Order Comment: Speci men Type: BLOOD SPECIMENOrdering Facility: [facility] Address: [address] [place] [address] Performed By: #### 2 4323-8, ####[facility] [id number] [place] [address] [place] ALT [Catalytic activity/Vol] 18 U/L Normal 10-54 [facility] Comment on above: Order Comment: Speci men Type: BLOOD SPECIMENOrdering Facility: [facility] Address: [address] [place] [address] Performed By: #### 2 4323-8, ####[facility] [id number] [place] [address] [place] Anion gap [Moles/Vol] 11 mmol/L Normal 9-18 [facility] Comment on above: Order Comment: Speci men Type: BLOOD SPECIMENOrdering Facility: [facility] Address: [address] [place] [address] Performed By: #### 2 4323-8, ####[facility] [id number] [place] [address] [place] AST [Catalytic activity/Vol] 19 U/L Normal 14-40 [facility] Comment on above: Order Comment: Speci men Type: BLOOD SPECIMENOrdering Facility: [facility] Address: [address] [place] [address] Performed By: #### 2 4323-8, ####[facility] [id number] [place] [address] [place] Bilirubin [Mass/Vol] 0.2 mg/dL Normal 0.2-1.3 [facility] Comment on above: Order Comment: Speci men Type: BLOOD SPECIMENOrdering Facility: [facility] Address: [address] [place] [address] Performed By: #### 2 4323-8, ####[facility] [id number] [place] [address] [place] Calcium [Mass/Vol] 9.6 mg/dL Normal 8.5-10.2 [facility] Comment on above: Order Comment: Speci men Type: BLOOD SPECIMENOrdering Facility: [facility] Address: [address] [place] [address] Performed By: #### 2 4323-8, ####[facility] [place] [id number] [place] [address] [place] Chloride [Moles/Vol] 107 mmol/L High 97-105 [facility] Comment on above: Order Comment: Speci men Type: BLOOD SPECIMENOrdering Facility: [facility] Address: [address] [place] [address] Performed By: #### 2 4323-8, ####[facility] [id number] [place] [address] [place] CO2 [Moles/Vol] 23 mmol/L Normal 22-30 [facility] Comment on above: Order Comment: Speci men Type: BLOOD SPECIMENOrdering Facility: [facility] Address: [address] [place] [address] Performed By: #### 2 4323-8, ####[facility] [id number] [place] [address] [place] Creatinine [Mass/Vol] 0.94 mg/dL Normal 0.73-1.22 [facility] Comment on above: Order Comment: Speci men Type: BLOOD SPECIMENOrdering Facility: [facility] Address: [address] [place] [address] Performed By: #### 2 4323-8, 23785-7 ####[facility] [id number] [place] [address] [place] Creatinine and Glomerular filtration rate.predicted panel (S/P/Bld) 89 mL/min/1.73m??? Normal >=60 [facility] Comment on above: Order Comment: Speci men Type: BLOOD SPECIMENOrdering Facility: [facility] Address: [address] [place] [address] Result Comment: Carol mated Glomerular Filtration Rate [...] ####[facility] [id number] [place] [address] [place] Glucose [Mass/Vol] 100 mg/dL High 74-99 [facility] Comment on above: Order Comment: Speci men Type: BLOOD SPECIMENOrdering Facility: [facility] Address: [address] [place] [address] Result Comment: The [place] Diabetes Association (ADA) provides guidance for cutoff [...] Standards of Medical Care in Diabetes 2016, [place] [employer]. Diabetes Care. 2016.39(Suppl 1). Performed By: #### 2 4322-8, ####[facility] [id number] [place] [address] [place] Potassium [Moles/Vol] 4.6 mmol/L Normal 3.7-5.1 [facility] Comment on above: Order Comment: Speci men Type: BLOOD SPECIMENOrdering Facility: [facility] Address: [address] [place] [address] Performed By: #### 2 4323-06, ####[facility] [id number] [place] [address] [place] Protein [Mass/Vol] 7.5 g/dL Normal 6.3-8.0 [facility] Comment on above: Order Comment: Speci men Type: BLOOD SPECIMENOrdering Facility: [facility] Address: [address] [place] [address] Performed By: #### 2 4323-06, ####[facility] [id number] [place] [address] [place] Sodium [Moles/Vol] 141 mmol/L Normal 136-144 [facility] Comment on above: Order Comment: Speci men Type: BLOOD SPECIMENOrdering Facility: [facility] Address: [address] [place] [address] Performed By: #### 2 43201-08, ####[facility] [id number] [place] [address] [place] Urea nitrogen [Mass/Vol] 15 mg/dL Normal 9-24 [facility] Comment on above: Order Comment: Speci men Type: BLOOD SPECIMENOrdering Facility: [facility] Address: [address] [place] [address] Performed By: #### 2 4323-8, 94042-0 ####[facility] [id number] [place] [address] [place] D dimer FEU PPP-mCncon 02-23 Fibrin D-dimer FEU (PPP) [Mass/Vol] 780 ng/mL FEU High <500 [facility] Comment on above: Order Comment: Speci men Type: BLOOD SPECIMENOrdering Facility: [facility] Address: [address] [place] [address] Performed By: #### 3 255-7, 54902-8, 97806-5 ####[facility] LABCLIA [id number] [place] [address] [place] D-DIMERon 02-24-2024 Fibrin D-dimer FEU (PPP) [Mass/Vol] 780 High NINF [facility] ECG COMPLETEon 02-24-2024 ECG COMPLETE Normal [facility] ESR Westergren method (Bld) [Velocity]on 02-24-2024 ESR (Bld) [Velocity] 26 mm/h High [facility] Interpretation and review of laboratory results Abnormal [facility] ESR (Bld) [Velocity] 26 mm/h High 0-15 [facility] Comment on above: Order Comment: Speci men Type: BLOOD SPECIMENOrdering Facility: [facility] Address: [address] [place] [address] Performed By: #### 4 537-7 ####[facility] [id number] [place] [address] [place] FIBRINOGENon 02-24-2024 Fibrinogen Coag (PPP) [Mass/Vol] 432 mg/dL High 200 - 400 mg/dL [facility] Fibrin D-dimer FEU (PPP) [Ma ss/Vol]on 02-24-2024 D Dimer Age-related Cutoff 670 ng/mL FEU [facility] 500 ng/mL FEU is the D [...] et al. Donna Int Med 2016 165:253. [facility] D DIMER AGE-RELATED CUTOFF 670 ng/mL FEU Normal [facility] Comment on above: Order Comment: Speci men Type: BLOOD SPECIMENOrdering Facility: [facility] Address: [address] [place] [address] Performed By: #### 3 255-7, 91262-4, 87061-4 ####[facility] LABCLIA [id number] [place] [id number] [place] Fibrinogen PPP-mCncon 2023 Fibrinogen Coag (PPP) [Mass/Vol] 432 mg/dL High 200-400 [facility] Comment on above: Order Comment: Speci men Type: BLOOD SPECIMENOrdering Facility: [facility] Address: [address] [place] [address] Performed By: #### 3 255-7, 67278-3, 68917-3 ####[facility] LABCLIA [id number] [place] [address] [place] HBV surface Ab Ql (S)Ordered By: Neli Champagne on 02-24-2024 HBV surface Ab Qn (S) mIU/mL [facility] Comment on above: <8 mIU/mL: No serolo gical evidence of immunity to Hepatitis B Virus. >/= 8 to <12 mIU/mL: No serological evidence of immunity to Hepatitis B Virus. >/= 12 mIU/mL: Consistent with serological evidence of immunity to Hepatitis B Virus. [facility] HBV surface Ab Ql (S)on 02-02 HBV surface Ab Qn (S) <8.00 Normal [facility] Comment on above: Order Comment: Speci men Type: BLOOD SPECIMENOrdering Facility: [facility] Address: [address] [place] [address] Result Comment: <8 m IU/mL: No serological evidence of immunity to Hepatitis B Virus.>/= 8 to <12 mIU/mL: No serological evidence of immunity to Hepatitis B Virus.>/= 12 mIU/mL: Consistent with serological evidence of immunity to Hepatitis B Virus. Performed By: #### 2 2322-2 ####[facility] LABIA [id number] [place] [address] [place] HBV surface Ab Ser Qlon 02-02 HBV surface Ab Ql (S) Negative Normal [facility] Comment on above: Order Comment: Speci men Type: BLOOD SPECIMENOrdering Facility: [facility] Address: [address] [place] [address] Result Comment: No s erological evidence of immunity to Hepatitis B Virus. Performed By: #### 2 2322-2 ####[facility] LABIA [id number] [place] [address] [place] HEPATITIS B SURFACE ANTIBODY Ordered By: Neli Champagne on 02-24-2024 HBV surface Ab Ql (S) Negative [facility] Comment on above: No serological evide nce of immunity to Hepatitis B Virus. IDM PANEL ADULTon 02-24-2024 ANTI-HBC Negative Normal Negative/N on-reactiv e [facility] Comment on above: Order Comment: Speci men Type: BLOOD SPECIMENOrdering Facility: [facility] Address: [address] [place] [address] Performed By: #### I DMAD ####[facility] LABCLIA [id number] [place] [address] [place] ANTI-HCV Negative Normal Negative/N on-reactiv e [facility] Comment on above: Order Comment: Speci men Type: BLOOD SPECIMENOrdering Facility: [facility] Address: [address] [place] [address] Performed By: #### I DMAD ####[facility] LABCLIA [id number] [place] [address] [place] ANTI-HTLV I/II Negative Normal Negative/N on-reactiv e [facility] Comment on above: Order Comment: Speci men Type: BLOOD SPECIMENOrdering Facility: [facility] Address: [address] [place] [address] Performed By: #### I DMAD ####[facility] LABCLIA [id number] [place] [address] [place] CHAGAS Negative Normal Negative/N on-reactiv e [facility] Comment on above: Order Comment: Speci men Type: BLOOD SPECIMENOrdering Facility: [facility] Address: [address] [place] [address] Performed By: #### I DMAD ####[facility] LABCLIA [id number] [place] [address] [place] CMV Negative Normal Negative/N on-reactiv e [facility] Comment on above: Order Comment: Speci men Type: BLOOD SPECIMENOrdering Facility: [facility] Address: [address] [place] [address] Performed By: #### I DMAD ####[facility] LABCLIA [id number] [place] [address] [place] EXPIRATION OF IDM 03/25/2024 [facility] Comment on above: Order Comment: Speci men Type: BLOOD SPECIMENOrdering Facility: [facility] Address: [address] [place] [address] Performed By: #### I DMAD ####[facility] LABCLIA [id number] [place] [address] [place] HBSAG Negative Normal Negative/N on-reactiv e [facility] Comment on above: Order Comment: Speci men Type: BLOOD SPECIMENOrdering Facility: [facility] Address: [address] [place] [address] Performed By: #### I DMAD ####[facility] LABCLIA [id number] [place] [address] [place] HBVNAT Negative Normal Negative/N on-reactiv e [facility] Comment on above: Order Comment: Speci men Type: BLOOD SPECIMENOrdering Facility: [facility] Address: [address] [place] [address] Performed By: #### I DMAD ####[facility] LABCLIA [id number] [place] [address] [place] HCVNAT Negative Normal Negative/N on-reactiv e [facility] Comment on above: Order Comment: Speci men Type: BLOOD SPECIMENOrdering Facility: [facility] Address: [address] [place] [address] Performed By: #### I DMAD ####[facility] LABCLIA [id number] [place] [address] [place] HIV 1+2 Ab Ql (S donor) Negative Normal Negative/N on-reactiv e [facility] Comment on above: Order Comment: Speci men Type: BLOOD SPECIMENOrdering Facility: [facility] Address: [address] [place] [address] Performed By: #### I DMAD ####[facility] LABCLIA [id number] [place] [address] [place] HIVNAT Negative Normal Negative/N on-reactiv e [facility] Comment on above: Order Comment: Speci men Type: BLOOD SPECIMENOrdering Facility: [facility] Address: [address] [place] [address] Performed By: #### I DMAD ####[facility] LABCLIA [id number] [place] [address] [place] STS Negative Normal Negative/N on-reactiv e [facility] Comment on above: Order Comment: Speci men Type: BLOOD SPECIMENOrdering Facility: [facility] Address: [address] [place] [address] Performed By: #### I DMAD ####[facility] LABCLIA [id number] [place] [address] [place] WNVNAT Negative Normal Negative/N on-reactiv e [facility] Comment on above: Order Comment: Speci men Type: BLOOD SPECIMENOrdering Facility: [facility] Address: [address] [place] [address] Performed By: #### I DMAD ####[facility] LABCLIA [id number] [place] [address] [place] IMMUNOGLOBULINS,IGG,IGA,IGMo n 02-24-2024 IgA [Mass/Vol] 175 mg/dL 70 - 400 mg/dL [facility] IgG [Mass/Vol] 1258 mg/dL 700 - 1600 mg/dL [facility] IgM [Mass/Vol] 15 mg/dL Low 40 - 230 mg/dL [facility] Interpretation and review of laboratory results Abnormal [facility] IgA [Mass/Vol] 175 mg/dL Normal 70-400 [facility] Comment on above: Order Comment: Speci men Type: BLOOD SPECIMENOrdering Facility: [facility] Address: [address] [place] [address] Performed By: #### S ERIMM ####[facility] LABCLIA [id number] [place] [address] [place] IgG [Mass/Vol] 1258 mg/dL Normal 700-1600 [facility] Comment on above: Order Comment: Speci men Type: BLOOD SPECIMENOrdering Facility: [facility] Address: [address] [place] [address] Performed By: #### S ERIMM ####[facility] LABIA [id number] [place] [address] [place] IgM [Mass/Vol] 15 mg/dL Low 40-230 [facility] Comment on above: Order Comment: Speci men Type: BLOOD SPECIMENOrdering Facility: [facility] Address: [address] [place] [address] Performed By: #### S ERIMM ####[facility] [id number] [place] [address] [place] LACTATE DEHYDROGENASEon 02-02 LDH [Catalytic activity/Vol] 205 U/L 135 - 225 U/L [facility] LDH SerPl-cCncon 02-24-2024 LDH [Catalytic activity/Vol] 205 U/L Normal 135-225 [facility] Comment on above: Order Comment: Speci men Type: BLOOD SPECIMENOrdering Facility: [facility] Address: [address] [place] [address] Performed By: #### 2 532-0 ####[facility] [id number] [place] [address] [place] LDH [Catalytic activity/Vol] on 02-24-2024 Interpretation and review of laboratory results Normal [facility] MAGNESIUMon 02-24-2024 Magnesium [Mass/Vol] 2.2 mg/dL 1.7 - 2 .3 mg/dL [facility] Magnesium SerPl-mCncon 02-23 Magnesium [Mass/Vol] 2.2 mg/dL Normal 1.7-2.3 [facility] Comment on above: Order Comment: Speci men Type: BLOOD SPECIMENOrdering Facility: [facility] Address: [address] [place] [address] Performed By: #### 2 4323-8, 08161-7 ####[facility] [id number] [facility] [place] [address] [place] Magnesium [Mass/Vol]on 02-23 Interpretation and review of laboratory results Normal [facility] No Panel Informationon 02-23 [facility] Interpretation and review of laboratory results Abnormal [facility] PT panel Coag (PPP)on 2023 INR Coag (PPP) [Relative time] 1.1 {INR} 0.9 - 1.3 [facility] Comment on above: Vitamin K Antagonist (VKA) Therapeutic Range: INR 2 to 3 (Target INR of 2.5) Note: For patients treated with VKA drugs, such as warfarin, the [place] [employer] 2012 Guideline recommends [...] GH, et al. Chest 2012, 141:7S-47S Chelsie RA et al. [facility] 2017, 70: 252-289 Interpretation and review of laboratory results Normal [facility] PT Coag (PPP) [Time] 11.3 s [facility] INR Coag (PPP) [Relative time] 1.1 {INR} Normal 0.9-1.3 [facility] Comment on above: Order Comment: Speci men Type: BLOOD SPECIMENOrdering Facility: [facility] Address: [address] [address] Result Comment: Anca min K Antagonist (VKA) Therapeutic Range: INR 2 to 3 (Target INR of 2.5)Note: For patients treated with VKA drugs, such as warfarin, the [place] [employer] 2012 Guideline recommends [...] al. Chest 2012, 141:7S-47SNishimura RA, et al. [facility] 2017, 70: 252-289 Performed By: #### 3 4528-0 ####[facility] LABCLIA [id number] [place] [address] [place] PT Coag (PPP) [Time] 11.3 s Normal 9.7-13.0 [facility] Comment on above: Order Comment: Speci men Type: BLOOD SPECIMENOrdering Facility: [facility] Address: [address] [place] [address] Performed By: #### 3 4528-0 ####[facility] LABCLIA [id number] [place] [address] [place] TYPE + SCREENon 02-24-2024 ABO group Nom (Bld) B [facility] Blood group antibody screen Ql Negative [facility] HIstorical Ab Scr Status Negative [facility] Rh Nom (Bld) Negative [facility] Type and Screen Expiration 02/27/2024 23:59 [facility] ABO B Normal [facility] Comment on above: Order Comment: Speci men Type: BLOOD SPECIMENOrdering Facility: [facility] Address: [address] [place] [address] Performed By: #### T SCR ####[facility] BLOOD BANKCLIA [id number] [address] [place] HISTORICAL AB SCR STATUS Negative Normal [facility] Comment on above: Order Comment: Speci men Type: BLOOD SPECIMENOrdering Facility: [facility] Address: [address] [place] [address] Performed By: #### T SCR ####[facility] BANKCLIA [id number] [address] Rh Nom (Bld) Negative Normal [facility] Comment on above: Order Comment: Speci men Type: BLOOD SPECIMENOrdering Facility: [facility] Address: [address] [place] [address] Performed By: #### T SCR ####[facility] BLO[facility] BANKCLIA [id number] [address] TYPE AND SCREEN EXPIRATION 02/27/2024 23:59 Normal [facility] Comment on above: Order Comment: Speci men Type: BLOOD SPECIMENOrdering Facility: [facility] Address: [address] [place] [address] Performed By: #### T SCR ####[facility] BLO[facility] BANKCLIA [id number] [address] [place] aPTT Coag (PPP) [Time]on Interpretation and review of laboratory results Normal [facility] Unfractionated Hepar in Therapeutic Ranges: Standard [...] laboratory APTT reagent in use throughout the [facility]. [facility] aPTT PPPon 02-24-2024 aPTT Coag (PPP) [Time] 24.0 s Normal 23.0-32.4 [facility] Comment on above: Order Comment: Speci men Type: BLOOD SPECIMENOrdering Facility: [facility] Address: [address] [place] [address] Performed By: #### 3 255-7, 59857-9, 84900-7 ####[facility] LABCLIA [id number] [facility] [place] [place] [address] [place] CNPNon 02-18-2024 CNPN Normal [facility] CNOVSPon 02-12-2024 CNOVSP Normal [facility] CNOVSPon 02-02-2024 CNOVSP Normal [facility] CNPTOUTREACHon 02-02-2024 CNPTOUTREACH Normal [facility] PET+CT Guidance for localiza tion of tumor of Skull base to mid-thigh-- W 18F-FDG IVOrdered By: Ccf Provider on 02-02-2024 Interpretation and review of laboratory results Abnormal [facility] Radiology Result ACTIONABLE Abnormal [facility] Comment on above: This report contains an incidental or actionable finding. This finding may be a new finding separate from the reason your provider ordered the imaging test or it may be an already known finding that needs additional or continued follow-up. Because of this incidental or actionable finding, you may need another test (imaging or a different type of test). Please contact your provider for the next steps. [facility] PET+CT Guidance for localiza tion of tumor of Skull base to mid-thigh-- W 18F-FDG Bella 02-02-2024 IMPRESSION: HEAD/NECK: * No FDG avid neoplastic [...] lymphocele in the region of right inguinal vasile excision. * Mild, asymmetric activity in the [...] uptake unlikely to be related to lymphoma ACTIONABLE RESULT: FOLLOW-UP Acuity: Actionable Findings: Thoracic-Lung nodules Routing code: RI_1 Recommendation: CT Chest WO IVCON Time Frame: 1-3 months COMMUNICATION: Results will be communicated with the ordering provider via [employer] staff message or phone message by [facility] within 2 business days of report finalization. --END OF FINDING-- Transcribe Date/Time: Feb 02 2024 3:00P Dictated by: QUINN DOWNEY MD This examination was interpreted and the report reviewed and electronically signed by: QUINN DOWNEY MD on Feb 02 2024 3:33PM EST Thank you for allowing us to participate in the care of your patient. Should there be any questions regarding this interpretation, please call [phone]. If you are unable to reach us at the number above, please feel free to contact [facility] at [phone]. DIVISION OF RADIOLOGY * * *Final Report* * * DATE OF EXAM: Jan 30 2024 2:40PM NRN [id number] - NM PET/CT SKULL-THIGH SUBQ / PROCEDURE REASON: Diffuse large B-cell lymphoma, unspecified body region (HCC) * * * * Physician Interpretation * * * * RESULT: EXAMINATION: BODY FDG PET-CT CLINICAL HISTORY: 68 year old with recurrent non-Hodgkin's lymphoma. INDICATION: Subsequent treatment strategy. TECHNIQUE: Radiopharmaceutical was administered IV followed about 60 minutes later by PET imaging from eyes to proximal thighs. Free breathing, low dose CT of the same body region was acquired without IV contrast for attenuation correction and anatomic localization. * CT Dose-Length Product (DLP): 225 mGy*cm * CT Dose Reduction Employed: Yes * Blood glucose (mg/dL): 91 * Radiopharmaceutical Dose: 9.9 mCi * Radiopharmaceutical: [id number] (FDG) COMPARISON: FDG PET/CT 11/18/2023 CORRELATION: No relevant imaging available RESULT: REFERENCES: SUV reference values: * Blood pool (descending aorta) activity: SUVmax 3.1 * Background liver activity: SUVmax 4.1; SUVmean 2.9 Manager Of Purchasing (topogram) images: No additional findings. Notes and limitations: * Standardized uptake values indicate the highest activity concentration (SUVmax) at a given location but can be variable and are not absolute. * Physiologic/non-neoplastic uptake is common in the brain, extraocular muscles, oral cavity, tonsils, salivary glands, vocal cords, myocardium, liver, GI tract, urinary tract, and bone marrow among others. Certain regions and organ systems can have more intense uptake, which could confound or obscure some pathology. * Unenhanced imaging is limited for the evaluation of some pathology and the acquired CT was not designed to produce or replace diagnostic CT scan quality. * PET-CT is often not sensitive for pulmonary nodules less than 8 mm. HEAD AND NECK: Imaged Head: No abnormal uptake. Neck & Lymph Nodes: No suspicious uptake. Physiologic activity is noted within bilateral suboccipital and supraclavicular brown fat. Thyroid: No abnormal uptake. Redemonstrated diminutive thyroid gland. CHEST: Lungs & Airways: A new mildly FDG avid 6 mm left upper lobe nodule measures SUV max 2.8 (4/127). Redemonstrated upper lobe predominant emphysema and bibasilar atelectasis/scarring. Pleura & Pericardium: No abnormal uptake. Cardiovascular: No abnormal uptake. Mild atherosclerotic calcifications. A right chest wall port tip terminates in the SVC. Mediastinum & Lymph Nodes: Mild bilateral hilar uptake is similar to prior, with activity that is slightly above mediastinal blood pool. For example, right hilar uptake measures SUV max 3.9 (previous SUV max 3.2). Small hiatal hernia. ABDOMEN AND PELVIS: Hepatobiliary: No abnormal uptake. Spleen: No abnormal uptake. No splenomegaly. Pancreas: No abnormal uptake. Adrenals: No abnormal uptake. Urinary Tract: No abnormal uptake. GI Tract: Previously noted focal uptake at the distal sigmoid colon is no longer conspicuous and was likely physiologic. A new area of focal uptake within the more proximal sigmoid colon measures SUV max 8.9, likely also physiologic. No dilated bowel. Peritoneum: No abnormal uptake. Vasculature: No abnormal uptake. Mild atherosclerotic calcifications. Retroperitoneum & Lymph Nodes: There is a 5.2 x 4.0 cm probable postoperative seroma or lymphocele in the region of right inguinal vasile excision. Numerous intensely FDG avid right medial thigh, right inguinal, right external iliac and right pelvic nodes are new since prior, compatible with lymphomatous involvement. For example, a 1.7 x 1.1 cm right inguinal node measures SUV max 17.2 (4/286), a 4.2 x 2.6 cm right external iliac node measures SUV max 25.3 (4/283) and a 1.5 x 1.3 cm right pelvic node measures SUV max 13.7 (4/264). Pelvis: Mild, asymmetric activity in the left posterior peripheral zone of the prostate gland measures SUV max 3.4. MUSCULOSKELETAL: Osseous: No abnormal uptake. Degenerative changes. Soft Tissues: No abnormal uptake. DIVISION OF RADIOLOGY Provider, [facility] - 02/02/2024 * * *Final Report* * * DATE OF EXAM: Jan 30 2024 2:40PM NRN [id number] - NM PET/CT SKULL-THIGH SUBQ / PROCEDURE REASON: Diffuse large B-cell lymphoma, unspecified body region (HCC) * * * * Physician Interpretation * * * * RESULT: EXAMINATION: BODY FDG PET-CT CLINICAL HISTORY: 68 year old with recurrent non-Hodgkin's lymphoma. INDICATION: Subsequent treatment strategy. TECHNIQUE: Radiopharmaceutical was administered IV followed about 60 minutes later by PET imaging from eyes to proximal thighs. Free breathing, low dose CT of the same body region was acquired without IV contrast for attenuation correction and anatomic localization. * CT Dose-Length Product (DLP): 225 mGy*cm * CT Dose Reduction Employed: Yes * Blood glucose (mg/dL): 91 * Radiopharmaceutical Dose: 9.9 mCi * Radiopharmaceutical: U26-Goodhkqrgjhitxkdjw (FDG) COMPARISON: FDG PET/CT 11/18/2023 CORRELATION: No relevant imaging available RESULT: REFERENCES: SUV reference values: * Blood pool (descending aorta) activity: SUVmax 3.1 * Background liver activity: SUVmax 4.1; SUVmean 2.9 Manager Of Purchasing (topogram) images: No additional findings. Notes and limitations: * Standardized uptake values indicate the highest activity concentration (SUVmax) at a given location but can be variable and are not absolute. * Physiologic/non-neoplastic uptake is common in the brain, extraocular muscles, oral cavity, tonsils, salivary glands, vocal cords, myocardium, liver, GI tract, urinary tract, and bone marrow among others. Certain regions and organ systems can have more intense uptake, which could confound or obscure some pathology. * Unenhanced imaging is limited for the evaluation of some pathology and the acquired CT was not designed to produce or replace diagnostic CT scan quality. * PET-CT is often not sensitive for pulmonary nodules less than 8 mm. HEAD AND NECK: Imaged Head: No abnormal uptake. Neck & Lymph Nodes: No suspicious uptake. Physiologic activity is noted within bilateral suboccipital and supraclavicular brown fat. Thyroid: No abnormal uptake. Redemonstrated diminutive thyroid gland. CHEST: Lungs & Airways: A new mildly FDG avid 6 mm left upper lobe nodule measures SUV max 2.8 (4/127). Redemonstrated upper lobe predominant emphysema and bibasilar atelectasis/scarring. Pleura & Pericardium: No abnormal uptake. Cardiovascular: No abnormal uptake. Mild atherosclerotic calcifications. A right chest wall port tip terminates in the SVC. Mediastinum & Lymph Nodes: Mild bilateral hilar uptake is similar to prior, with activity that is slightly above mediastinal blood pool. For example, right hilar uptake measures SUV max 3.9 (previous SUV max 3.2). Small hiatal hernia. ABDOMEN AND PELVIS: Hepatobiliary: No abnormal uptake. Spleen: No abnormal uptake. No splenomegaly. Pancreas: No abnormal uptake. Adrenals: No abnormal uptake. Urinary Tract: No abnormal uptake. GI Tract: Previously noted focal uptake at the distal sigmoid colon is no longer conspicuous and was likely physiologic. A new area of focal uptake within the more proximal sigmoid colon measures SUV max 8.9, likely also physiologic. No dilated bowel. Peritoneum: No abnormal uptake. Vasculature: No abnormal uptake. Mild atherosclerotic calcifications. Retroperitoneum & Lymph Nodes: There is a 5.2 x 4.0 cm probable postoperative seroma or lymphocele in the region of right inguinal vasile excision. Numerous intensely FDG avid right medial thigh, right inguinal, right external iliac and right pelvic nodes are new since prior, compatible with lymphomatous involvement. For example, a 1.7 x 1.1 cm right inguinal node measures SUV max 17.2 (4/286), a 4.2 x 2.6 cm right external iliac node measures SUV max 25.3 (4/283) and a 1.5 x 1.3 cm right pelvic node measures SUV max 13.7 (4/264). Pelvis: Mild, asymmetric activity in the left posterior peripheral zone of the prostate gland measures SUV max 3.4. MUSCULOSKELETAL: Osseous: No abnormal uptake. Degenerative changes. Soft Tissues: No abnormal uptake. IMPRESSION IMPRESSION: HEAD/NECK: * No FDG avid neoplastic [...] iliac and right pelvic nodes, compatible with (more content not included)... [facility] GLUCOSE, BLOOD (POC)on 01-29 Glucose [Mass/Vol] 91 mg/dL 74 - 99 mg/dL [facility] Comment on above: Location:[facility], [address] [place] [address] , [place], [place], [facility] The Accu-Chek Inform II glucose meter has not been approved for testing on patients receiving intensive medical intervention or therapy and results from this point of care glucose test should not be used for patient management decisions in these cases. Inaccurate results may also occur from other interfering factors, such as N-acetylcysteine (blood concentrations of greater than 5mg/dL), galactose, extremes of hematocrit (<10 or >65), or high doses of ascorbic acid (vitamin C) greater than 3mg/dL. Consider alternate testing mechanisms (e.g. core lab, blood gas instrument) in the above situations. [facility] NM PET/CT SKULL-THIGH SUBQon 01-30-2024 NM PET/CT SKULL-THIGH SUBQ Invalid Interpretation Code [facility] PET+CT Guidance for localiza tion of tumor of Skull base to mid-thigh-- W 18F-FDG Bella 01-30-2024 Radiology Study observation (narrative) [facility] CNPNon 01-29-2024 CNPN Normal [facility] Pathology Noteon 01-29-2024 Pathology Note [id number] Normal [facility] COMPREHENSIVE METABOLIC PANE Cheng 01-28-2024 Albumin [Mass/Vol] 4.2 g/dL Normal 3.5-5.0 [facility] Comment on above: Order Comment: [place] Performed By: #### C MPN, LDO, URICB #### [facility] (DEFAULT) [address] [place] [address] 12442 ALP [Catalytic activity/Vol] 165 U/L High 32-126 [facility] Comment on above: Order Comment: [place] Performed By: #### C MPN, LDO, URICB #### [facility] (DEFAULT) [address] [place] [address] 59348 ALT [Catalytic activity/Vol] 24 U/L Normal 10-52 [facility] Comment on above: Order Comment: [place] Performed By: #### C MPN, LDO, URICB #### [facility] (DEFAULT) [address] [place] [address] 15542 Anion gap [Moles/Vol] 13 mmol/L Normal 7-17 [facility] Comment on above: Order Comment: [place] Performed By: #### C MPN, LDO, URICB #### [facility] (DEFAULT) [address] [place] [address] 09769 AST [Catalytic activity/Vol] 22 U/L Normal 10-39 [facility] Comment on above: Order Comment: [place] Performed By: #### C MPN, LDO, URICB #### [facility] (DEFAULT) [address] [place] [address] 44328 Bilirubin [Mass/Vol] 0.4 mg/dL Normal <1.5 [facility] Comment on above: Order Comment: [place] Performed By: #### C MPN, LDO, URICB #### [facility] (DEFAULT) [address] [place] [address] 30319 Calcium [Mass/Vol] 9.6 mg/dL Normal 8.6-10.5 [facility] Comment on above: Order Comment: [place] Performed By: #### C MPN, LDO, URICB #### [facility] (DEFAULT) [address] [place] [address] 61252 Chloride [Moles/Vol] 107 mmol/L Normal 98-108 [facility] Comment on above: Order Comment: [place] Performed By: #### C MPN, LDO, URICB #### [facility] (DEFAULT) [address] [place] [address] 82163 CO2 [Moles/Vol] 23 mmol/L Normal 21-31 [facility] Comment on above: Order Comment: [place] Performed By: #### C MPN, LDO, URICB #### [facility] (DEFAULT) [address] [place] [address] 04035 Creatinine [Mass/Vol] 1.08 mg/dL Normal 0.70-1.30 [facility] Comment on above: Order Comment: [place] Performed By: #### C MPN, LDO, URICB #### [facility] (DEFAULT) [address] [place] [address] 89897 GFR/1.73 sq M.predicted among non-blacks MDRD (S/P/Bld) [Vol rate/Area] 75 mL/min/{1.73_m2} Normal >=60 [facility] Comment on above: Order Comment: [place] Result Comment: Repo rted eGFR is based on the CKD-EPI 2020 equation using creatinine, age, and sex. Performed By: #### C MPN, LDO, URICB #### [facility] (DEFAULT) [address] [place] [address] 35258 Glucose [Mass/Vol] 135 mg/dL High 70-99 [facility] Comment on above: Order Comment: [place] Performed By: #### C MPN, LDO, URICB #### [facility] (DEFAULT) [address] [place] [address] 07594 Osmolality [Osmolality] 294 mosm/kg Normal 278-305 [facility] Comment on above: Order Comment: [place] Performed By: #### C MPN, LDO, URICB #### [facility] (DEFAULT) [address] [place] [address] 49778 Potassium [Moles/Vol] 3.9 mmol/L Normal 3.5-5.0 [facility] Comment on above: Order Comment: [place] Performed By: #### C MPN, LDO, URICB #### [facility] (DEFAULT) [address] [place] [address] 39848 Protein [Mass/Vol] 7.1 g/dL Normal 6.4-8.3 [facility] Comment on above: Order Comment: [place] Performed By: #### C MPN, LDO, URICB #### [facility] (DEFAULT) [address] [place] [address] 71947 Sodium [Moles/Vol] 139 mmol/L Normal 135-145 [facility] Comment on above: Order Comment: [place] Performed By: #### C MPN, LDO, URICB #### [facility] (DEFAULT) [address] [place] [address] 46168 Urea nitrogen [Mass/Vol] 15 mg/dL Normal 7-25 [facility] Comment on above: Order Comment: [place] Performed By: #### C MPN, LDO, URICB #### [facility] (DEFAULT) [address] [place] [address] 40455 Urea nitrogen/Creatinine [Mass ratio] 14 mg/mg Normal [facility] Comment on above: Order Comment: [place] Performed By: #### C MPN, LDO, URICB #### [facility] (DEFAULT) [address] [place] [address] Albumin [Mass/Vol] 4.2 g/dL 3.5 - 5.0 g/dL [facility] ALP [Catalytic activity/Vol] 165 U/L High 32 - 126 U/L [facility] ALT [Catalytic activity/Vol] 24 U/L 10 - 52 U/L [facility] Anion gap [Moles/Vol] 13 mmol/L 7 - 17 mmol/L [facility] AST [Catalytic activity/Vol] 22 U/L 10 - 39 U/L [facility] Bilirubin [Mass/Vol] 0.4 mg/dL NINF - 1.5 mg/dL [facility] Calcium [Mass/Vol] 9.6 mg/dL 8.6 - 10. 5 mg/dL [facility] Chloride [Moles/Vol] 107 mmol/L 98 - 10 8 mmol/L [facility] CO2 [Moles/Vol] 23 mmol/L 21 - 31 mmol/L [facility] Creatinine [Mass/Vol] 1.08 mg/dL 0.70 - 1.30 mg/dL [facility] eGFR, CKD-EPI, Male 76 - PINF [facility] Comment on above: Reported eGFR is bas ed on the CKD-EPI 2020 equation using creatinine, age, and sex. Glucose [Mass/Vol] 135 mg/dL High 70 - 99 mg/dL [facility] Osmolality Calc [Osmolality] 294 [facility] Potassium [Moles/Vol] 3.9 mmol/L 3.5 - 5.0 mmol/L [facility] Protein [Mass/Vol] 7.1 g/dL 6.4 - 8.3 g/dL [facility] Sodium [Moles/Vol] 139 mmol/L 135 - 145 mmol/L [facility] Urea nitrogen [Mass/Vol] 15 mg/dL 7 - 25 mg/dL [facility] Urea nitrogen/Creatinine [Mass ratio] 14 mg[facility] Chronic hepatitis differenti ation between hepatitis B and C virus panelOrdered By: Nia Mixon on 01-28-2024 HBV core IgG+IgM Ql (S) Negative Negative [facility] HBV surface Ab IA Ql (S) Negative Negative [facility] HBV surface Ag Ql (S) Negative Negative [facility] HCV Ab Ql (S) Negative Negative [facility] Interpretation and review of laboratory results Normal [facility] HEPATITIS BATTERY, CHRONICon 01-28-2024 Hep B Core Ab,Total (IgG+IgM) Negative Normal Negative [facility] Comment on above: Order Comment: [place] Performed By: #### H EP3B #### [facility] (DEFAULT) [address] [place] [address] Hep B Surface Ab Negative Normal Negative [facility] Comment on above: Order Comment: [place] Performed By: #### H EP3B #### [facility] (DEFAULT) [address] [place] [address] 00263 Hepatitis B Surface Ag Negative Normal Negative [facility] Comment on above: Order Comment: [place] Performed By: #### H EP3B #### [facility] (DEFAULT) [address] [place] [address] 52951 Hepatitis C Antibody Negative Normal Negative [facility] Comment on above: Order Comment: [place] Performed By: #### H EP3B #### [facility] (DEFAULT) [address] [place] [address] 93044 HIV 1 AND 2 ANTIBODIES/P24 A NTIGENon 01-28-2024 HIV 1+2 Ab+HIV1 p24 Ag IA Ql Non-Reactive Non Reactive [facility] Interpretation and review of laboratory results Normal [facility] HIV-1/HIV-2 Ab With p24 Antigen Non-Reactive Normal Non Reactive [facility] Comment on above: Order Comment: [place] Performed By: #### L [id number] #### [facility] (DEFAULT) [address] [place] [address] LACTATE DEHYDROGENASEon 01-02 LD Total 177 U/L Normal 100-190 [facility] Comment on above: Order Comment: [place] Performed By: #### C MPN, LDO, URICB #### [facility] (DEFAULT) [address] [place] [address] Interpretation and review of laboratory results Normal [facility] LDH Lactate to pyruvate reaction [Catalytic activity/Vol] 177 U/L 100 - 190 U/L [facility] No Panel Informationon 01-27 Interpretation and review of laboratory results Abnormal [facility] URIC ACIDon 01-28-2024 Urate [Mass/Vol] 7.4 mg/dL High 3.5-7.0 [facility] Comment on above: Order Comment: [place] Performed By: #### C MPN, LDO, URICB #### [facility] (DEFAULT) [address] [place] [address] 75711 Urate [Mass/Vol] 7.4 mg/dL High 3.5 - 7.0 mg/dL [facility] CNPNon 01-27-2024 CNPN Normal [facility] CNCOon 01-22-2024 CNCO Letter Text Normal [facility] CNCOon 01-21-2024 CNCO Letter Text Normal [facility] CNPNon 01-20-2024 CNPN Normal [facility] CNPNon 01-14-2024 CNPN Normal [facility] Pathology Noteon 01-13-2024 Pathology Note [id number]#1.00TIFF Normal [facility] Pathology Note [id number]#[id number] Normal [facility] Pathology Note [id number]#[id number] Normal [facility] CNOVSPon 03-11-2024 CNOVSP Normal [facility] CNOVSPon 01-05-2024 CNOVSP Normal [facility] Pathology Noteon 12-31-2023 Pathology Note [id number]#[id number] Normal [facility] CNOVon 12-30-2023 CNOV Normal [facility] CNPNon 12-29-2023 CNPN Normal [facility] B2 Microglob SerPl-mCncon Cnoc-8-Osrtdtsqulsnz [Mass/Vol] 2.4 ug/mL Normal <3.1 [facility] Comment on above: Order Comment: Speci men Type: BLOOD SPECIMENOrdering Facility: [facility] Address: [address] [place] [address] Result Comment: Beta -2 Microglobulin test is performed using the [employer] immunoturbidimetric method. Results obtained with different methods or kits cannot be used interchangeably. Performed By: #### 1 952-1 ####[facility] LABCLIA [id number] [place] [address] [place] CBC W Auto Differential pane l (Bld)on 12-25-2023 Basophils (Bld) [#/Vol] 0.05 10*3/uL <0.11 k/uL [facility] Basophils/100 WBC (Bld) 0.9 % [facility] Differential cell count method Nom (Bld) Auto [facility] Eosinophils (Bld) [#/Vol] 0.18 10*3/uL <0.46 k/uL [facility] Eosinophils/100 WBC (Bld) 3.2 % [facility] Erythrocyte distribution width (RBC) [Ratio] 13.3 % 11.5 - 15.0 % [facility] Hematocrit (Bld) [Volume fraction] 40.3 % 39.0 - 51.0 % [facility] Hemoglobin (Bld) [Mass/Vol] 14.1 g/dL 13.0 - 17.0 g/dL [facility] Immature granulocytes (Bld) [#/Vol] 0.03 10*3/uL <0.10 k/uL [facility] Immature granulocytes/100 WBC (Bld) 0.5 % [facility] Lymphocytes (Bld) [#/Vol] 0.61 10*3/uL Low 1.00 - 4.00 k/uL [facility] Lymphocytes/100 WBC (Bld) 10.9 % [facility] MCH (RBC) [Entitic mass] 31.8 pg 26.0 - 34.0 pg [facility] MCHC (RBC) [Mass/Vol] 35.0 g/dL 30.5 - 36.0 g/dL [facility] MCV (RBC) [Entitic vol] 91.0 fL 80.0 - 100.0 fL [facility] Monocytes (Bld) [#/Vol] 1.06 10*3/uL High <0.87 k/uL [facility] Monocytes/100 WBC (Bld) 19.0 % [facility] Neutrophils (Bld) [#/Vol] 3.66 10*3/uL 1.45 - 7.50 k/uL [facility] Neutrophils/100 WBC (Bld) 65.5 % [facility] Nucleated RBC (Bld) [#/Vol] <0.01 k/uL [facility] Nucleated RBC/100 WBC (Bld) [Ratio] 0.0 /100 WBC [facility] Platelet mean volume (Bld) [Entitic vol] 9.5 fL 9.0 - 12.7 fL [facility] Platelets (Bld) [#/Vol] 216 10*3/uL 150 - 400 k/uL [facility] RBC (Bld) [#/Vol] 4.43 10*6/uL 4.20 - 6.00 m/uL [facility] WBC (Bld) [#/Vol] 5.59 10*3/uL 3.70 - 11.00 k/uL [facility] Basophils (Bld) [#/Vol] 0.05 10*3/uL Normal <0.11 [facility] Comment on above: Order Comment: Speci men Type: BLOOD SPECIMENOrdering Facility: [facility] Address: [address] [place] [address] Performed By: #### 5 7021-8 ####[facility] LABCLIA [id number] [place] [address] Basophils/100 WBC (Bld) 0.9 % Normal [facility] Comment on above: Order Comment: Speci men Type: BLOOD SPECIMENOrdering Facility: [facility] Address: [address] [place] [address] Performed By: #### 5 7021-8 ####[facility] LABCLIA [id number] [place] [address] Differential cell count method Nom (Bld) Auto Normal [facility] Comment on above: Order Comment: Speci men Type: BLOOD SPECIMENOrdering Facility: [facility] Address: [address] [place] [address] Performed By: #### 5 7021-8 ####[facility] LABCLIA [id number] [place] [address] Eosinophils (Bld) [#/Vol] 0.18 10*3/uL Normal <0.46 [facility] Comment on above: Order Comment: Speci men Type: BLOOD SPECIMENOrdering Facility: [facility] Address: [address] [place] [address] Performed By: #### 5 7021-8 ####[facility] LABCLIA [id number] [place] [address] Eosinophils/100 WBC (Bld) 3.2 % Normal [facility] Comment on above: Order Comment: Speci men Type: BLOOD SPECIMENOrdering Facility: [facility] Address: [address] [place] [address] Performed By: #### 5 7021-8 ####[facility] LABCLIA [id number] [place] [address] Erythrocyte distribution width (RBC) [Ratio] 13.3 % Normal 11.5-15.0 [facility] Comment on above: Order Comment: Speci men Type: BLOOD SPECIMENOrdering Facility: [facility] Address: [address] [place] [address] Performed By: #### 5 7021-8 ####[facility] LABCLIA [id number] [place] [address] Hematocrit (Bld) [Volume fraction] 40.3 % Normal 39.0-51.0 [facility] Comment on above: Order Comment: Speci men Type: BLOOD SPECIMENOrdering Facility: [facility] Address: [address] [place] [address] Performed By: #### 5 7021-8 ####[facility] LABCLIA [id number] [place] [address] Hemoglobin (Bld) [Mass/Vol] 14.1 g/dL Normal 13.0-17.0 [facility] Comment on above: Order Comment: Speci men Type: BLOOD SPECIMENOrdering Facility: [facility] Address: [address] [place] [address] Performed By: #### 5 7021-8 ####[facility] LABCLIA [id number] [place] [address] Immature granulocytes (Bld) [#/Vol] 0.03 10*3/uL Normal <0.10 [facility] Comment on above: Order Comment: Speci men Type: BLOOD SPECIMENOrdering Facility: [facility] Address: [address] [place] [address] Performed By: #### 5 7021-8 ####[facility] LABCLIA [id number] [place] [address] Immature granulocytes/100 WBC (Bld) 0.5 % Normal [facility] Comment on above: Order Comment: Speci men Type: BLOOD SPECIMENOrdering Facility: [facility] Address: [address] [place] [address] Performed By: #### 5 7021-8 ####[facility] LABCLIA [id number] [place] [address] Lymphocytes (Bld) [#/Vol] 0.61 10*3/uL Low 1.00-4.00 [facility] Comment on above: Order Comment: Speci men Type: BLOOD SPECIMENOrdering Facility: [facility] Address: [address] [place] [address] Performed By: #### 5 7021-8 ####[facility] LABCLIA [id number] [place] [address] Lymphocytes/100 WBC (Bld) 10.9 % Normal [facility] Comment on above: Order Comment: Speci men Type: BLOOD SPECIMENOrdering Facility: [facility] Address: [address] [place] [address] Performed By: #### 5 7021-8 ####[facility] LABCLIA [id number] [place] [address] MCH (RBC) [Entitic mass] 31.8 pg Normal 26.0-34.0 [facility] Comment on above: Order Comment: Speci men Type: BLOOD SPECIMENOrdering Facility: [facility] Address: [address] [place] [address] Performed By: #### 5 7021-8 ####[facility] LABCLIA [id number] [place] [address] MCHC (RBC) [Mass/Vol] 35.0 g/dL Normal 30.5-36.0 [facility] Comment on above: Order Comment: Speci men Type: BLOOD SPECIMENOrdering Facility: [facility] Address: [address] [place] [address] Performed By: #### 5 7021-8 ####[facility] LABCLIA [id number] [place] [address] MCV (RBC) [Entitic vol] 91.0 fL Normal 80.0-100.0 [facility] Comment on above: Order Comment: Speci men Type: BLOOD SPECIMENOrdering Facility: [facility] Address: [address] [place] [address] Performed By: #### 5 7021-8 ####[facility] LABCLIA [id number] [place] [address] Monocytes (Bld) [#/Vol] 1.06 10*3/uL High <0.87 [facility] Comment on above: Order Comment: Speci men Type: BLOOD SPECIMENOrdering Facility: [facility] Address: [address] [place] [address] Performed By: #### 5 7021-8 ####[facility] LABCLIA [id number] [place] [address] Monocytes/100 WBC (Bld) 19.0 % Normal [facility] Comment on above: Order Comment: Speci men Type: BLOOD SPECIMENOrdering Facility: [facility] Address: [address] [place] [address] Performed By: #### 5 7021-8 ####[facility] LABCLIA [id number] [place] [address] Neutrophils (Bld) [#/Vol] 3.66 10*3/uL Normal 1.45-7.50 [facility] Comment on above: Order Comment: Speci men Type: BLOOD SPECIMENOrdering Facility: [facility] Address: [address] [place] [address] Performed By: #### 5 7021-8 ####[facility] LABCLIA [id number] [place] [address] Neutrophils/100 WBC (Bld) 65.5 % Normal [facility] Comment on above: Order Comment: Speci men Type: BLOOD SPECIMENOrdering Facility: [facility] Address: [address] [place] [address] Performed By: #### 5 7021-8 ####[facility] LABCLIA [id number] [place] [address] Nucleated RBC (Bld) [#/Vol] 10*3/uL Normal <0.01 [facility] Comment on above: Order Comment: Speci men Type: BLOOD SPECIMENOrdering Facility: [facility] Address: [address] [place] [address] Performed By: #### 5 7021-8 ####[facility] LABCLIA [id number] [place] [address] Nucleated RBC/100 WBC (Bld) [Ratio] 0.0 /100 WBC Normal [facility] Comment on above: Order Comment: Speci men Type: BLOOD SPECIMENOrdering Facility: [facility] Address: [address] [place] [address] Performed By: #### 5 7021-8 ####[facility] LABCLIA [id number] [place] [address] Platelet mean volume (Bld) [Entitic vol] 9.5 fL Normal 9.0-12.7 [facility] Comment on above: Order Comment: Speci men Type: BLOOD SPECIMENOrdering Facility: [facility] Address: [address] [place] [address] Performed By: #### 5 7021-8 ####[facility] LABIA [id number] [place] [address] Platelets (Bld) [#/Vol] 216 10*3/uL Normal 150-400 [facility] Comment on above: Order Comment: Speci men Type: BLOOD SPECIMENOrdering Facility: [facility] Address: [address] [place] [address] Performed By: #### 5 7021-8 ####[facility] [facility] [id number] [place] [address] RBC (Bld) [#/Vol] 4.43 10*6/uL Normal 4.20-6.00 [facility] Comment on above: Order Comment: Speci men Type: BLOOD SPECIMENOrdering Facility: [facility] Address: [address] [place] [address] Performed By: #### 5 7021-8 ####[facility]IA [id number] [place] [address] WBC (Bld) [#/Vol] 5.59 10*3/uL Normal 3.70-11.00 [facility] Comment on above: Order Comment: Speci men Type: BLOOD SPECIMENOrdering Facility: [facility] Address: [address] [place] [address] Performed By: #### 5 7021-8 ####[facility] LABCLIA [id number] [place] [address] CNOVSPon 12-25-2023 CNOVSP Normal [facility] metabolic 2000 panelon 12-25-2023 Albumin [Mass/Vol] 4.4 g/dL 3.9 - 4.9 g/dL [facility] ALP [Catalytic activity/Vol] 204 U/L High 38 - 113 U/L [facility] ALT [Catalytic activity/Vol] 30 U/L 10 - 54 U/L [facility] Anion gap [Moles/Vol] 10 mmol/L 9 - 18 mmol/L [facility] AST [Catalytic activity/Vol] 22 U/L 14 - 40 U/L [facility] Bilirubin [Mass/Vol] 0.3 mg/dL 0.2 - 1 .3 mg/dL [facility] Calcium [Mass/Vol] 10.2 mg/dL 8.5 - 10. 2 mg/dL [facility] Chloride [Moles/Vol] 101 mmol/L 97 - 10 5 mmol/L [facility] CO2 [Moles/Vol] 25 mmol/L 22 - 30 mmol/L [facility] Creatinine [Mass/Vol] 1.10 mg/dL 0.73 - 1.22 mg/dL [facility] Estimated Glomerular Filtration Rate 74 mL/min/1.73m >=60 mL/min/1.7 3m [facility] Glucose [Mass/Vol] 96 mg/dL 74 - 99 mg/dL [facility] Potassium [Moles/Vol] 4.1 mmol/L 3.7 - 5.1 mmol/L [facility] Protein [Mass/Vol] 7.6 g/dL 6.3 - 8.0 g/dL [facility] Sodium [Moles/Vol] 136 mmol/L 136 - 144 mmol/L [facility] Urea nitrogen [Mass/Vol] 16 mg/dL 9 - 24 mg/dL [facility] Albumin [Mass/Vol] 4.4 g/dL Normal 3.9-4.9 [facility] Comment on above: Order Comment: Speci men Type: BLOOD SPECIMENOrdering Facility: [facility] Address: [address] [place] [address] Performed By: #### 2 532-0, ####[facility] LABCLIA [id number] [place] [address] ALP [Catalytic activity/Vol] 204 U/L High 38-113 [facility] Comment on above: Order Comment: Speci men Type: BLOOD SPECIMENOrdering Facility: [facility] Address: [address] [place] [address] Performed By: #### 2 532-0, ####[facility] LABCLIA [id number] [place] [address] ALT [Catalytic activity/Vol] 30 U/L Normal 10-54 [facility] Comment on above: Order Comment: Speci men Type: BLOOD SPECIMENOrdering Facility: [facility] Address: [address] [place] [address] Performed By: #### 2 532-0, ####[facility] LABCLIA [id number] [place] [address] Anion gap [Moles/Vol] 10 mmol/L Normal 9-18 [facility] Comment on above: Order Comment: Speci men Type: BLOOD SPECIMENOrdering Facility: [facility] Address: [address] [place] [address] Performed By: #### 2 532-0, ####[facility] LABCLIA [id number] [place] [address] AST [Catalytic activity/Vol] 22 U/L Normal 14-40 [facility] Comment on above: Order Comment: Speci men Type: BLOOD SPECIMENOrdering Facility: [facility] Address: [address] [place] [address] Performed By: #### 2 532-0, ####[facility] LABCLIA [id number] [place] [address] Bilirubin [Mass/Vol] 0.3 mg/dL Normal 0.2-1.3 [facility] Comment on above: Order Comment: Speci men Type: BLOOD SPECIMENOrdering Facility: [facility] Address: [address] [place] [address] Performed By: #### 2 532-0, 83905-1 ####[facility] LABCLIA [id number] [place] [address] Calcium [Mass/Vol] 10.2 mg/dL Normal 8.5-10.2 [facility] Comment on above: Order Comment: Speci men Type: BLOOD SPECIMENOrdering Facility: [facility] Address: [address] [place] [address] Performed By: #### 2 532-0, 60777-2 ####[facility] LABCLIA [id number] [place] [address] Chloride [Moles/Vol] 101 mmol/L Normal 97-105 [facility] Comment on above: Order Comment: Speci men Type: BLOOD SPECIMENOrdering Facility: [facility] Address: [address] [place] [address] Performed By: #### 2 532-0, ####[facility] LABCLIA [id number] [place] [address] CO2 [Moles/Vol] 25 mmol/L Normal 22-30 [facility] Comment on above: Order Comment: Speci men Type: BLOOD SPECIMENOrdering Facility: [facility] Address: [address] [place] [address] Performed By: #### 2 532-0, 02544-7 ####[facility] LABCLIA [id number] [place] [address] Creatinine [Mass/Vol] 1.10 mg/dL Normal 0.73-1.22 [facility] Comment on above: Order Comment: Speci men Type: BLOOD SPECIMENOrdering Facility: [facility] Address: [facility] [place] [address] Performed By: #### 2 532-0, 83110-2 ####[facility] LABCLIA [id number] [place] [address] Creatinine and Glomerular filtration rate.predicted panel (S/P/Bld) 74 mL/min/1.73m??? Normal >=60 [facility] Comment on above: Order Comment: Sara men Type: BLOOD SPECIMENOrdering Facility: [facility] Address: [address] [place] [address] Result Comment: Carol mated Glomerular Filtration Rate [...] actual GFR. Performed By: #### 2 532-0, 79364-8 ####[facility] LABCLIA [id number] [place] [address] Glucose [Mass/Vol] 96 mg/dL Normal 74-99 [facility] Comment on above: Order Comment: Sara randle Type: BLOOD SPECIMENOrdering Facility: [facility] Address: [address] [place] [address] Result Comment: The [place] [employer] (ADA) provides guidance for cutoff [...] Standards of Medical Care in Diabetes 2016, [place] [employer]. Diabetes Care. 2016.39(Suppl 1). Performed By: #### 2 532-0, ####[facility] LABCLIA [id number] [place] [address] Potassium [Moles/Vol] 4.1 mmol/L Normal 3.7-5.1 [facility] Comment on above: Order Comment: Speci men Type: BLOOD SPECIMENOrdering Facility: [facility] Address: [address] [place] [address] Performed By: #### 2 532-0, ####[facility] LABCLIA [id number] [place] [address] Protein [Mass/Vol] 7.6 g/dL Normal 6.3-8.0 [facility] Comment on above: Order Comment: Speci men Type: BLOOD SPECIMENOrdering Facility: [facility] Address: [address] [place] [address] Performed By: #### 2 532-0, ####[facility] LABCLIA [id number] [place] [address] Sodium [Moles/Vol] 136 mmol/L Normal 136-144 [facility] Comment on above: Order Comment: Speci men Type: BLOOD SPECIMENOrdering Facility: [facility] Address: [address] [place] [address] Performed By: #### 2 532-0, ####[facility] LABCLIA [id number] [place] [address] Urea nitrogen [Mass/Vol] 16 mg/dL Normal 9-24 [facility] Comment on above: Order Comment: Speci men Type: BLOOD SPECIMENOrdering Facility: [facility] Address: [address] [place] [address] Performed By: #### 2 532-0, ####[facility] LABCLIA [id number] [place] [address] [facility]-25-2023 LDH [Catalytic activity/Vol] 182 U/L Normal 135-225 [facility] Comment on above: Order Comment: Speci men Type: BLOOD SPECIMENOrdering Facility: [facility] Address: [address] [place] [address] Performed By: #### 2 532-0, 61075-3 ####[facility] LABCLIA [id number] [place] [address] Laboratory - Chemistry and C hemistry - challengeon 12-25-2023 LDH [Catalytic activity/Vol] 182 U/L 135 - 225 U/L [facility] Ambulatory Visit Summaryon 0 12-24-2023 Ambulatory [...] for choosing us for your care. Normal [facility] FISH FOR AGGRESSIVE B-CELL L YMPHOMAon 12-24-2023 FISH FOR AGGRESSIVE B-CELL LYMPHOMA Normal [facility] Comment on above: Order Comment: Speci men Type: FORMALIN-FIXED PARAFFIN-EMBEDDED TISSUE SPECIMENOrdering Facility: Outside Review Address: , , Result Comment: FISH for Aggressive B-cell Lymphoma TissueLaboratory Accession Number: [id number]: [id number]/Part ID: [id number] ([id number])Sample Type: FFPETSample Description: Right inguinal lymph [...] hybridization analysis was performedusing the following probes ([employer], [place], [place]): LSI MYCdual color, break-apart rearrangement probes, [employer]SI IGH/MYC/PKS1mvxblljm, dual fusion probes, [employer]SI BCL2 dual color, break-apartrearrangement probes, and [employer]SI BCL6 dual color, break-apartrearrangement probes.DISCLAIMER:This test was developed and its performance characteristics determinedby the [facility]'s [facility] Pathology and LaboratoryMedicine [place] ([facility]). It has not been cleared or approved bythe FDA. [facility] is regulated under CLIA as qualified to perform high-complexity testing. This test is used for clinical purposes. It shouldnot be regarded as investigational or for research.Interpretation performed at [facility], [facility] [place] [address]. [facility] Number: [id number] reviewed by Chiquita Clemente MD, PhD Performed By: #### L [id number] ####[facility] LABCLIA [id number] [address]#### FABCEL ####[facility]CL[facility] [id number] [address] General Surgery Office/Clini c Noteon 12-24-2023 General [...] Follow-up With When Contact Information MIGUEL LOFTON, Chiquita Martins, TERRELL Only if needed [address] [place] [address]- Additional Instructions: Problem List/Past Medical [...] inactivated - Not Given Patient Refuses Normal [facility] Comment on above: Result Comment: Elec tronically Signed By: Chiquita RIVERA MD\.br\Date and Time Signed: 12/24/23 20:33 EST OUTSIDE SURG PATH SLIDE REVI EWon 12-24-2023 ADDENDUM 1: Normal [facility] Comment on above: Order Comment: Speci men Type: FORMALIN-FIXED PARAFFIN-EMBEDDED TISSUE SPECIMENOrdering Facility: [facility] Outside Review Address: , , Result Comment: Aggr essive B-Cell Neoplasm Biomarker [id number] ICC Diagnosis: Diffuse large B-cell lymphoma, NOSBiomarker Results:Cell of origin (Landry director of procurement): Germinal centerMYC expression (% tumor cells by IHC): 20%BCL2 expression (% tumor cells by IHC): 90%Ki67 expression (% tumor cells by IHC): 70-80%BCL2 translocation (FISH): NegativeBCL6 translocation (FISH): PositiveMYC translocation (FISH): Negative IGH::MYC translocation (FISH): NegativeAddendum electronically signed by Chioma Pineda DO on 01/08/2024 at 8:48 AM Performed By: #### L [id number] ####[facility] LABCLIA [id number] [address] [place]#### FABCEL ####[facility] [id number] [address] [place] CASE REPORT Normal [facility] Comment on above: Order Comment: Speci men Type: FORMALIN-FIXED PARAFFIN-EMBEDDED TISSUE SPECIMENOrdering Facility: [facility] Review Address: , , Result Comment: Surg ica Pathology Report Case: [id number] Provider: Michael Boykin MD Collected: 12/24/2023 08:50 AMOrdering Location: [facility] Received: 12/24/2023 08:49 AM [facility] LaboratoryPathologist: Chioma Pineda, DOSpecimen: SLIDE(S), 26 SLIDES [id number] Performed By: #### L [id number] ####[facility] LABCLIA [id number] [place] [address] [place]#### FABCEL ####[facility] [id number] [place] [address] [place] DIAGNOSIS COMMENT Normal [facility] Comment on above: Order Comment: [...] been determined by the performing laboratory within [facility]???s [place] [facility] Pathology and Laboratory Medicine [place] ([facility], [facility], [facility], [facility], [facility], [facility], or [facility]) in a manner consistent with CLIA requirements. One or more of these tests have not been cleared or approved by the FDA. [facility] is regulated under CLIA as qualified to perform high-complexity testing. These tests are used for clinical purposes. They should not be regarded as investigational or for research. Positive and negative controls stain appropriately. Performed By: #### L [id number] ####[facility] LABCLIA [id number] [place] [address] [place]#### FABCEL ####[facility] LIM[facility]CL[facility] [id number] [place] [id number] [place] FINAL DIAGNOSIS Normal [facility] Comment on above: Order Comment: Speci men Type: FORMALIN-FIXED PARAFFIN-EMBEDDED TISSUE SPECIMENOrdering Facility: [facility] Outside Review Address: , , Result Comment: Outs remi slides from [facility], [place], [place], labeled [id number], collected 12/17/2023:A-B. Right inguinal lymph node, excisional biopsies:-Aggressive large B-cell lymphoma, favor germinal center immunophenotype Performed By: #### L [id number] ####[facility] LABCLIA [id number] [address]#### FABCEL ####[facility] [id number] [address] STATES [facility] FINAL PERFORMING LAB Normal [facility] Comment on above: Order Comment: Speci men Type: FORMALIN-FIXED PARAFFIN-EMBEDDED TISSUE SPECIMENOrdering Facility: [facility] Review Address: , , Result Comment: Diag nostic interpretation performed at [facility], [address] [place] [id number] CLIA# [id number] Director: Lon Kaiser M.D. Performed By: #### L [id number] ####[facility] LABCLIA [id number] [address]#### FABCEL ####[facility]CL[facility] [id number] [address] STATES [facility] MICROSCOPIC DESCRIPTION Normal [facility] Comment on above: Order [...] deeper sections of tissue block A5 at [facility]. The lymphoma cells are positive for CD10 (minor subset, in the best preserved area) and MUM1, and are negative for MYC, S100, and JAVID by in situ hybridization. Performed By: #### L [id number] ####[facility] LABCLIA [id number] [address] [place]#### FABCEL ####[facility]CL[facility] [id number] [address] [place] Pathology Noteon 12-24-2023 Pathology Note [id number]#1.00TIFF Normal [facility] Operative Reporton Operative Report [id number]#1.00TIFF Normal [facility] CNPNon 12-22-2023 CNPN Normal [facility] Pathology Noteon 12-22-2023 Pathology Note [id number]#1.00TIFF Normal [facility] CNPNon 12-15-2023 CNPN Normal [facility] ECG 12-Leadon 12-15-2023 ECG 12-Lead [id number]#1.00TIFF [facility] Consent for Procedure/Surger yon 12-11-2023 Consent for Procedure/Surgery [id number]#1.00TIFF [facility] Ambulatory Visit Summaryon 0 12-09-2023 Ambulatory Visit Summary KATIA SHAIKH :1955 Visit Date:12/09/2023 Ambulatory Visit Instructions Your Care Team Attending Physician - MIGUEL LOFTON, Chiquita Martins Primary Care Physician - SANDRA LOFTON, EMELIA Referring Physician - Michael Boykin MD This Is Your Medications List levothyroxine [...] you for choosing us for your care. [facility] RAD - Nuclear Medicine Repor ton 12-09-2023 RAD - Nuclear Medicine Report [id number]#1.00TIFF [facility] RAD - Ultrasound Reporton RAD - Ultrasound Report [id number]#1.00TIFF [facility] CNPNon 12-01-2023 CNPN [facility] RAD - Ultrasound Reporton RAD - Ultrasound Report [id number]#1.00TIFF [facility] CNPNon 11-24-2023 CNPN [facility] Physician Referralon 024 Physician Referral [id number]#1.00TIFF [facility] CNOVSPon 11-20-2023 CNOVSP [facility] CNPNon 01-18-2024 CNPN [facility] CNPNon 11-19-2023 CNPN Normal [facility] CBC W Auto Differential pane l (Bld)on 11-18-2023 Basophils (Bld) [#/Vol] 0.05 10*3/uL [facility] Basophils/100 WBC (Bld) 1.5 % [facility] Differential cell count method Nom (Bld) Auto [facility] Eosinophils (Bld) [#/Vol] 0.16 10*3/uL [facility] Eosinophils/100 WBC (Bld) 4.8 % [facility] Erythrocyte distribution width (RBC) [Ratio] 14.1 % 11.5 - 15.0 % [facility] Hematocrit (Bld) [Volume fraction] 41.5 % 39.0 - 51.0 % [facility] Hemoglobin (Bld) [Mass/Vol] 14.6 g/dL 13.0 - 17.0 g/dL [facility] Immature granulocytes (Bld) [#/Vol] [facility] Immature granulocytes/100 WBC (Bld) 0.6 % [facility] Interpretation and review of laboratory results Abnormal [facility] Lymphocytes (Bld) [#/Vol] 0.32 10*3/uL Low [facility] Lymphocytes/100 WBC (Bld) 9.5 % [facility] MCH (RBC) [Entitic mass] 31.9 pg 26.0 - 34.0 pg [facility] MCHC (RBC) [Mass/Vol] 35.2 g/dL 30.5 - 36.0 g/dL [facility] MCV (RBC) [Entitic vol] 90.8 fL 80.0 - 100.0 fL [facility] Monocytes (Bld) [#/Vol] 0.62 10*3/uL [facility] Monocytes/100 WBC (Bld) 18.5 % [facility] Neutrophils (Bld) [#/Vol] 2.19 10*3/uL [facility] Neutrophils/100 WBC (Bld) 65.1 % [facility] Nucleated RBC (Bld) [#/Vol] [facility] Nucleated RBC/100 WBC (Bld) [Ratio] 0.0 % /100 WBC [facility] Platelet mean volume (Bld) [Entitic vol] 9.5 fL 9.0 - 12.7 fL [facility] Platelets (Bld) [#/Vol] 184 10*3/uL [facility] RBC (Bld) [#/Vol] 4.57 10*6/uL 4.20 - 6.00 m/uL [facility] WBC (Bld) [#/Vol] 3.36 10*3/uL Low [facility] Basophils (Bld) [#/Vol] 0.05 10*3/uL Normal <0.11 [facility] Comment on above: Order Comment: Speci men Type: BLOOD SPECIMENOrdering Facility: [facility] Address: [address] [place] [address] Performed By: #### 5 7021-8 ####[facility] LABCLIA [id number] [place] [address] Basophils/100 WBC (Bld) 1.5 % Normal [facility] Comment on above: Order Comment: Speci men Type: BLOOD SPECIMENOrdering Facility: [facility] Address: [address] [place] [address] Performed By: #### 5 7021-8 ####[facility] LABCLIA [id number] [place] [address] Differential cell count method Nom (Bld) Auto Normal [facility] Comment on above: Order Comment: Speci men Type: BLOOD SPECIMENOrdering Facility: [facility] Address: [address] [place] [address] Performed By: #### 5 7021-8 ####[facility] LABCLIA [id number] [place] [address] Eosinophils (Bld) [#/Vol] 0.16 10*3/uL Normal <0.46 [facility] Comment on above: Order Comment: Speci men Type: BLOOD SPECIMENOrdering Facility: [facility] Address: [address] [place] [address] Performed By: #### 5 7021-8 ####[facility] LABCLIA [id number] [place] [address] Eosinophils/100 WBC (Bld) 4.8 % Normal [facility] Comment on above: Order Comment: Speci men Type: BLOOD SPECIMENOrdering Facility: [facility] Address: [address] [place] [address] Performed By: #### 5 7021-8 ####[facility] LABCLIA [id number] [place] [address] Erythrocyte distribution width (RBC) [Ratio] 14.1 % Normal 11.5-15.0 [facility] Comment on above: Order Comment: Speci men Type: BLOOD SPECIMENOrdering Facility: [facility] Address: [address] [place] [address] Performed By: #### 5 7021-8 ####[facility] LABCLIA [id number] [place] [address] Hematocrit (Bld) [Volume fraction] 41.5 % Normal 39.0-51.0 [facility] Comment on above: Order Comment: Speci men Type: BLOOD SPECIMENOrdering Facility: [facility] Address: [address] [place] [address] Performed By: #### 5 7021-8 ####[facility] LABIA [id number] [place] [address] Hemoglobin (Bld) [Mass/Vol] 14.6 g/dL Normal 13.0-17.0 [facility] Comment on above: Order Comment: Speci men Type: BLOOD SPECIMENOrdering Facility: [facility] Address: [address] [place] [address] Performed By: #### 5 7021-8 ####[facility] LABIA [id number] [place] [address] Immature granulocytes (Bld) [#/Vol] 10*3/uL Normal <0.10 [facility] Comment on above: Order Comment: Speci men Type: BLOOD SPECIMENOrdering Facility: [facility] Address: [address] [place] [address] Performed By: #### 5 7021-8 ####[facility] LABCLIA [id number] [place] [address] Immature granulocytes/100 WBC (Bld) 0.6 % Normal [facility] Comment on above: Order Comment: Speci men Type: BLOOD SPECIMENOrdering Facility: [facility] Address: [address] [place] [address] Performed By: #### 5 7021-8 ####[facility] LABCLIA [id number] [place] [address] Lymphocytes (Bld) [#/Vol] 0.32 10*3/uL Low 1.00-4.00 [facility] Comment on above: Order Comment: Speci men Type: BLOOD SPECIMENOrdering Facility: [facility] Address: [address] [place] [address] Performed By: #### 5 7021-8 ####[facility] LABCLIA [id number] [place] [address] Lymphocytes/100 WBC (Bld) 9.5 % Normal [facility] Comment on above: Order Comment: Speci men Type: BLOOD SPECIMENOrdering Facility: [facility] Address: [address] [place] [address] Performed By: #### 5 7021-8 ####[facility] LABCLIA [id number] [place] [address] [facility] (RBC) [Entitic mass] 31.9 pg Normal 26.0-34.0 [facility] Comment on above: Order Comment: Speci men Type: BLOOD SPECIMENOrdering Facility: [facility] Address: [address] [place] [address] Performed By: #### 5 7021-8 ####[facility] LABIA [id number] [place] [address] MCHC (RBC) [Mass/Vol] 35.2 g/dL Normal 30.5-36.0 [facility] Comment on above: Order Comment: Speci men Type: BLOOD SPECIMENOrdering Facility: [facility] Address: [facility] [place] [address] Performed By: #### 5 7021-8 ####[facility] LABCLIA [id number] [place] [address] MCV (RBC) [Entitic vol] 90.8 fL Normal 80.0-100.0 [facility] Comment on above: Order Comment: Speci men Type: BLOOD SPECIMENOrdering Facility: [facility] Address: [address] [place] [address] Performed By: #### 5 7021-8 ####[facility] LABCLIA [id number] [place] [address] Monocytes (Bld) [#/Vol] 0.62 10*3/uL Normal <0.87 [facility] Comment on above: Order Comment: Speci men Type: BLOOD SPECIMENOrdering Facility: [facility] Address: [address] [place] [address] Performed By: #### 5 7021-8 ####[facility] LABCLIA [id number] [place] [address] Monocytes/100 WBC (Bld) 18.5 % Normal [facility] Comment on above: Order Comment: Speci men Type: BLOOD SPECIMENOrdering Facility: [facility] Address: [address] [place] [address] Performed By: #### 5 7021-8 ####[facility] LABCLIA [id number] [place] [address] Neutrophils (Bld) [#/Vol] 2.19 10*3/uL Normal 1.45-7.50 [facility] Comment on above: Order Comment: Speci men Type: BLOOD SPECIMENOrdering Facility: [facility] Address: [address] [place] [address] Performed By: #### 5 7021-8 ####[facility] LABCLIA [id number] [place] [address] Neutrophils/100 WBC (Bld) 65.1 % Normal [facility] Comment on above: Order Comment: Speci men Type: BLOOD SPECIMENOrdering Facility: [facility] Address: [address] [place] [address] Performed By: #### 5 7021-8 ####[facility] LABCLIA [id number] [place] [address] Nucleated RBC (Bld) [#/Vol] 10*3/uL Normal <0.01 [facility] Comment on above: Order Comment: Speci men Type: BLOOD SPECIMENOrdering Facility: [facility] Address: [address] [place] [address] Performed By: #### 5 7021-8 ####[facility] LABCLIA [id number] [place] [address] Nucleated RBC/100 WBC (Bld) [Ratio] 0.0 /100 WBC Normal [facility] Comment on above: Order Comment: Speci men Type: BLOOD SPECIMENOrdering Facility: [facility] Address: [address] [place] [address] Performed By: #### 5 7021-8 ####[facility] LABCLIA [id number] [place] [address] Platelet mean volume (Bld) [Entitic vol] 9.5 fL Normal 9.0-12.7 [facility] Comment on above: Order Comment: Speci men Type: BLOOD SPECIMENOrdering Facility: [facility] Address: [address] [place] [address] Performed By: #### 5 7021-8 ####[facility] LABCLIA [id number] [place] [address] Platelets (Bld) [#/Vol] 184 10*3/uL Normal 150-400 [facility] Comment on above: Order Comment: Speci men Type: BLOOD SPECIMENOrdering Facility: [facility] Address: [address] [place] [address] Performed By: #### 5 7021-8 ####[facility] LABCLIA [id number] [place] [address] RBC (Bld) [#/Vol] 4.57 10*6/uL Normal 4.20-6.00 [facility] Comment on above: Order Comment: Speci men Type: BLOOD SPECIMENOrdering Facility: [facility] Address: [address] [place] [address] Performed By: #### 5 7021-8 ####[facility] LABCLIA [id number] [place] [address] WBC (Bld) [#/Vol] 3.36 10*3/uL Low 3.70-11.00 [facility] Comment on above: Order Comment: Speci men Type: BLOOD SPECIMENOrdering Facility: [facility] Address: [address] [place] [address] Performed By: #### 5 7021-8 ####[facility] LABCLIA [id number] [place] [address] Comprehensive metabolic 2000 panelOrdered By: Benson Alcaraz on 11-18-2023 Albumin [Mass/Vol] 4.5 g/dL 3.9 - 4.9 g/dL [facility] ALP [Catalytic activity/Vol] 171 U/L High 38 - 113 U/L [facility] ALT [Catalytic activity/Vol] 19 U/L 10 - 54 U/L [facility] Anion gap [Moles/Vol] 11 mmol/L 9 - 18 mmol/L [facility] AST [Catalytic activity/Vol] 21 U/L 14 - 40 U/L [facility] Bilirubin [Mass/Vol] 0.2 mg/dL 0.2 - 1 .3 mg/dL [facility] Calcium [Mass/Vol] 9.8 mg/dL 8.5 - 10. 2 mg/dL [facility] Chloride [Moles/Vol] 107 mmol/L High 97 - 10 5 mmol/L [facility] CO2 [Moles/Vol] 25 mmol/L 22 - 30 mmol/L [facility] Creatinine [Mass/Vol] 0.96 mg/dL 0.73 - 1.22 mg/dL [facility] GFR/1.73 sq M.predicted among non-blacks MDRD (S/P/Bld) [Vol rate/Area] 87 mL/min/{1.73_m2} - PINF [facility] Comment on above: Estimated Glomerular Filtration [...] not accurately reflect actual GFR. Glucose [Mass/Vol] 94 mg/dL 74 - 99 mg/dL [facility] Comment on above: The [place] Diab[employer] Association (ADA) provides guidance for [...] Standards of Medical Care in Diabetes 2016, [place] [employer]. Diabetes Care. 2016.39(Suppl 1). Interpretation and review of laboratory results Abnormal [facility] Potassium [Moles/Vol] 4.2 mmol/L 3.7 - 5.1 mmol/L [facility] Protein [Mass/Vol] 7.3 g/dL 6.3 - 8.0 g/dL [facility] Sodium [Moles/Vol] 143 mmol/L 136 - 144 mmol/L [facility] Urea nitrogen [Mass/Vol] 15 mg/dL 9 - 24 mg/dL [facility] Comprehensive metabolic 2000 panelon 11-18-2023 Albumin [Mass/Vol] 4.5 g/dL Normal 3.9-4.9 [facility] Comment on above: Order Comment: Speci men Type: BLOOD SPECIMENOrdering Facility: [facility] Address: [address] [place] [address] [place] [address] Performed By: #### 2 4323-8, 3084-1 ####[facility] LABCLIA [id number] [place] [address] ALP [Catalytic activity/Vol] 171 U/L High 38-113 [facility] Comment on above: Order Comment: Speci men Type: BLOOD SPECIMENOrdering Facility: [facility] Address: [address] [place] [address] Performed By: #### 2 4323-8, 3083- ####[facility] LABCLIA [id number] [place] [address] ALT [Catalytic activity/Vol] 19 U/L Normal 10-54 [facility] Comment on above: Order Comment: Speci men Type: BLOOD SPECIMENOrdering Facility: [facility] Address: [address] [place] [address] Performed By: #### 2 4323-8, 3083-11 ####[facility] LABCLIA [id number] [place] [address] Anion gap [Moles/Vol] 11 mmol/L Normal 9-18 [facility] Comment on above: Order Comment: Speci men Type: BLOOD SPECIMENOrdering Facility: [facility] Address: [address] [place] [address] Performed By: #### 2 4323-8, 3083-11 ####[facility] LABCLIA [id number] [place] [address] AST [Catalytic activity/Vol] 21 U/L Normal 14-40 [facility] Comment on above: Order Comment: Speci men Type: BLOOD SPECIMENOrdering Facility: [facility] Address: [address] [place] [address] Performed By: #### 2 4323-8, 3083- ####[facility] LABCLIA [id number] [place] [address] Bilirubin [Mass/Vol] 0.2 mg/dL Normal 0.2-1.3 [facility] Comment on above: Order Comment: Speci men Type: BLOOD SPECIMENOrdering Facility: [facility] Address: [address] [place] [address] Performed By: #### 2 4323-8, 3083- ####[facility] LABCLIA [id number] [place] [address] Calcium [Mass/Vol] 9.8 mg/dL Normal 8.5-10.2 [facility] Comment on above: Order Comment: Speci men Type: BLOOD SPECIMENOrdering Facility: [facility] Address: [address] [place] [address] Performed By: #### 2 4323-8, 3083- ####[facility] LABCLIA [id number] [place] [address] Chloride [Moles/Vol] 107 mmol/L High 97-105 [facility] Comment on above: Order Comment: Speci men Type: BLOOD SPECIMENOrdering Facility: [facility] Address: [address] [place] [address] Performed By: #### 2 4323-8, 3083-11 ####[facility] LABCLIA [id number] [place] [address] CO2 [Moles/Vol] 25 mmol/L Normal 22-30 [facility] Comment on above: Order Comment: Speci men Type: BLOOD SPECIMENOrdering Facility: [facility] Address: [address] [place] [id number] Performed By: #### 2 4323-8, 3083-11 ####[facility] LABCLIA [id number] [place] [address] Creatinine [Mass/Vol] 0.96 mg/dL Normal 0.73-1.22 [facility] Comment on above: Order Comment: Speci men Type: BLOOD SPECIMENOrdering Facility: [facility] Address: [address] [place] [id number] Performed By: #### 2 4323-8, 3083- ####[facility] LABCLIA [id number] [place] [address] Creatinine and Glomerular filtration rate.predicted panel (S/P/Bld) 87 mL/min/1.73m??? Normal >=60 [facility] Comment on above: Order Comment: Sara randle Type: BLOOD SPECIMENOrdering Facility: [facility] Address: [address] [place] [address] Result Comment: Carol mated Glomerular Filtration Rate [...] GFR. Performed By: #### 2 4323-8, 3084-1 ####[facility] LABCLIA [id number] [place] [address] Glucose [Mass/Vol] 94 mg/dL Normal 74-99 [facility] Comment on above: Order Comment: Sara randle Type: BLOOD SPECIMENOrdering Facility: [facility] Address: [address] [place] [address] Result Comment: The [place] Diabetes Association (ADA) provides guidance for cutoff [...] Standards of Medical Care in Diabetes 2016, [place] Diabetes [employer]. Diabetes Care. 2016.39(Suppl 1). Performed By: #### 2 4323-8, 3084-1 ####[facility] LABCLIA [id number] [place] [address] Potassium [Moles/Vol] 4.2 mmol/L Normal 3.7-5.1 [facility] Comment on above: Order Comment: Speci men Type: BLOOD SPECIMENOrdering Facility: [facility] Address: [address] [place] [address] Performed By: #### 2 4323-8, 3083- ####[facility] LABCLIA [id number] [place] [address] Protein [Mass/Vol] 7.3 g/dL Normal 6.3-8.0 [facility] Comment on above: Order Comment: Speci men Type: BLOOD SPECIMENOrdering Facility: [facility] Address: [address] [place] [address] Performed By: #### 2 4323-8, 3083-11 ####[facility] LABCLIA [id number] [place] [address] Sodium [Moles/Vol] 143 mmol/L Normal 136-144 [facility] Comment on above: Order Comment: Speci men Type: BLOOD SPECIMENOrdering Facility: [facility] Address: [address] [place] [address] Performed By: #### 2 4323-8, 3083-11 ####[facility] LABCLIA [id number] [place] [address] Urea nitrogen [Mass/Vol] 15 mg/dL Normal 9-24 [facility] Comment on above: Order Comment: Speci men Type: BLOOD SPECIMENOrdering Facility: [facility] Address: [address] [place] [address] Performed By: #### 2 4323-8, 3083- ####[facility] LABCLIA [id number] [place] [address] GLUCOSE, BLOOD (POC)on 11-18 Glucose [Mass/Vol] 91 mg/dL 74 - 99 mg/dL [facility] Comment on above: Location:[facility], [address] [place] [address] , [place], [place], [address] The Accu-Chek Inform II glucose meter has not been approved for testing on patients receiving intensive medical intervention or therapy and results from this point of care glucose test should not be used for patient management decisions in these cases. Inaccurate results may also occur from other interfering factors, such as N-acetylcysteine (blood concentrations of greater than 5mg/dL), galactose, extremes of hematocrit (<10 or >65), or high doses of ascorbic acid (vitamin C) greater than 3mg/dL. Consider alternate testing mechanisms (e.g. core lab, blood gas instrument) in the above situations. [facility] NM PET/CT SKULL-THIGH SUBQon 11-18-2023 NM PET/CT SKULL-THIGH SUBQ Normal [facility] PET+CT Guidance for localiza tion of tumor of Skull base to mid-thigh-- W 18F-FDG Bella 11-18-2023 IMPRESSION: Since 09/23/2023, HEAD/NECK: * No FDG [...] FDG avid osseous lesion. Deauville score: 5 -Score 1: No uptake above the background -Score 2: Uptake ? mediastinum -Score 3: Uptake > mediastinum but ? liver -Score 4: Uptake moderately increased above liver -Score 5: Uptake markedly increased above liver or new sites of disease -Score X: New areas of uptake unlikely to be related to lymphoma Transcribe Date/Time: Nov 18 2023 1:29P Dictated by: QUINN DOWNEY MD This examination was interpreted and the report reviewed and electronically signed by: QUINN DOWNEY MD on Nov 18 2023 2:12PM EST Thank you for allowing us to participate in the care of your patient. Should there be any questions regarding this interpretation, please call [phone]. If you are unable to reach us at the number above, please feel free to contact [facility] at [phone]. DIVISION OF RADIOLOGY * * *Final Report* * * DATE OF EXAM: Nov 18 2023 12:55PM NRN [id number] - NM PET/CT SKULL-THIGH SUBQ / PROCEDURE REASON: Diffuse large B-cell lymphoma, unspecified body region (HCC) * * * * Physician Interpretation * * * * RESULT: EXAM: NM PET/CT SKULL-THIGH SUBQ HISTORY: Diffuse large B-cell lymphoma, unspecified body region (HCC) INDICATION: Subsequent treatment strategy TECHNIQUE: 10.6 mCi of F18-FDG administered IV followed about 60 minutes later by PET imaging from eyes to proximal thighs. Free breathing low dose CT was performed without contrast for attenuation correction and anatomic localization. - Blood glucose before FDG injection: 91 mg/dL CT Dose-Length Product (DLP): 229 mGy*cm CT Dose Reduction Employed: Automated exposure control (AEC) COMPARISON: FDG PET/CT 09/23/2023 CORRELATION: None available RESULTS: REFERENCES: SUV reference values: - Mediastinal blood pool activity (SUV max): 2.1 - Background liver activity (SUV max): 3.7 [employer]asing (topogram) images: No additional findings. HEAD AND NECK: Head (imaged): No abnormal uptake. Neck & Lymph Nodes: No abnormal uptake. Thyroid: No abnormal uptake. Redemonstrated diminutive thyroid gland. CHEST: Lungs & Airways: No abnormal uptake. Redemonstrated upper lobe predominant emphysema and bibasilar atelectasis/scarring. Pleura & Pericardium: No abnormal uptake. Cardiovascular: No abnormal uptake. Redemonstrated right chest wall port, with tip terminating in the distal SVC. Mild atherosclerotic calcifications. Mediastinum & Lymph Nodes: Mild bilateral hilar uptake is similar to prior, for example measuring SUV max 3.2 on the right (previous SUV max 3.8), likely benign/reactive.. Focal uptake at the distal esophagus is likely physiologic or inflammatory. Small hiatal hernia. ABDOMEN AND PELVIS: Hepatobiliary: No abnormal uptake. Spleen: No abnormal uptake. No splenomegaly. Pancreas: No abnormal uptake. Adrenals: No abnormal uptake. Urinary Tract: No abnormal uptake. GI Tract & Peritoneum: Focal uptake at the distal sigmoid colon is not substantially changed, measuring SUV max 16.7 (previous SUV max 15.4). Vasculature: No abnormal uptake. Mild atherosclerotic calcifications. Retroperitoneum & Lymph Nodes: A right inguinal lymph node has increased in size and FDG avidity, measuring 4.3 x 3.5 cm with SUV max 28.5 (3/308), previously 3.0 x 1.8 cm with SUV max 19.1. Pelvis: No abnormal uptake. MUSCULOSKELETAL: Bones: No abnormal uptake. Degenerative changes. Soft tissues: No abnormal uptake. DIVISION OF RADIOLOGY Provider, [facility] - 11/18/2023 * * *Final Report* * * DATE OF EXAM: Nov 18 2023 12:55PM NRN [id number] - NM PET/CT SKULL-THIGH SUBQ / PROCEDURE REASON: Diffuse large B-cell lymphoma, unspecified body region (HCC) * * * * Physician Interpretation * * * * RESULT: EXAM: NM PET/CT SKULL-THIGH SUBQ HISTORY: Diffuse large B-cell lymphoma, unspecified body region (HCC) INDICATION: Subsequent treatment strategy TECHNIQUE: 10.6 mCi of F18-FDG administered IV followed about 60 minutes later by PET imaging from eyes to proximal thighs. Free breathing low dose CT was performed without contrast for attenuation correction and anatomic localization. - Blood glucose before FDG injection: 91 mg/dL CT Dose-Length Product (DLP): 229 mGy*cm CT Dose Reduction Employed: Automated exposure control (AEC) COMPARISON: FDG PET/CT 09/23/2023 CORRELATION: None available RESULTS: REFERENCES: SUV reference values: - Mediastinal blood pool activity (SUV max): 2.1 - Background liver activity (SUV max): 3.7 Manager Of Purchasing (topogram) images: No additional findings. HEAD AND NECK: Head (imaged): No abnormal uptake. Neck & Lymph Nodes: No abnormal uptake. Thyroid: No abnormal uptake. Redemonstrated diminutive thyroid gland. CHEST: Lungs & Airways: No abnormal uptake. Redemonstrated upper lobe predominant emphysema and bibasilar atelectasis/scarring. Pleura & Pericardium: No abnormal uptake. Cardiovascular: No abnormal uptake. Redemonstrated right chest wall port, with tip terminating in the distal SVC. Mild atherosclerotic calcifications. Mediastinum & Lymph Nodes: Mild bilateral hilar uptake is similar to prior, for example measuring SUV max 3.2 on the right (previous SUV max 3.8), likely benign/reactive.. Focal uptake at the distal esophagus is likely physiologic or inflammatory. Small hiatal hernia. ABDOMEN AND PELVIS: Hepatobiliary: No abnormal uptake. Spleen: No abnormal uptake. No splenomegaly. Pancreas: No abnormal uptake. Adrenals: No abnormal uptake. Urinary Tract: No abnormal uptake. GI Tract & Peritoneum: Focal uptake at the distal sigmoid colon is not substantially changed, measuring SUV max 16.7 (previous SUV max 15.4). Vasculature: No abnormal uptake. Mild atherosclerotic calcifications. Retroperitoneum & Lymph Nodes: A right inguinal lymph node has increased in size and FDG avidity, measuring 4.3 x 3.5 cm with SUV max 28.5 (3/308), previously 3.0 x 1.8 cm with SUV max 19.1. Pelvis: No abnormal uptake. MUSCULOSKELETAL: Bones: No abnormal uptake. Degenerative changes. Soft tissues: No abnormal uptake. IMPRESSION IMPRESSION: Since 09/23/2023, HEAD/NECK: * No FDG [...] FDG avid osseous lesion. Deauville score: 5 -Score 1: No uptake above the background -Score 2: Uptake ? mediastinum -Score 3: Uptake > mediastinum but ? liver -Score 4: Uptake moderately increased above liver -Score 5: Uptake markedly increased above liver or new sites of disease -Score X: New areas of uptake unlikely to be related to lymphoma Transcribe Date/Time: Nov 18 2023 1:29P Dictated by: QUINN DOWNEY MD This examination was interpreted and the report reviewed and electronically signed by: QUINN DOWNEY MD on Nov 18 2023 2:12PM EST Thank you for allowing us to participate in the care of your patient. Should there be any questions regarding this interpretation, please call [phone]. If you are unable to reach us at the number above, please feel free to contact [facility] at [phone]. [facility] Radiology Study observation (narrative) [facility] PET+CT Guidance for localiza tion of tumor of Skull base to mid-thigh-- W 18F-FDG IVOrdered By: [facility] Provider on 11-18-2023 [facility] URIC ACID BLOODon 11-18-2023 Urate [Mass/Vol] 6.7 mg/dL 4.0 - 8.1 mg/dL [facility] Urate SerPl-mCncon Urate [Mass/Vol] 6.7 mg/dL Normal 4.0-8.1 [facility] Comment on above: Order Comment: Speci men Type: BLOOD SPECIMENOrdering Facility: [facility] Address: [address] [place] [address] Performed By: #### 2 4323-8, 3084-1 ####[facility] LABCLIA [id number] [place] [address] Urate [Mass/Vol]on Interpretation and review of laboratory results Normal [facility] CBC W Auto Differential pane l (Bld)on 10-28-2023 Basophils (Bld) [#/Vol] 0.06 10*3/uL Normal <0.11 [facility] Comment on above: Order Comment: Speci men Type: BLOOD SPECIMENOrdering Facility: [facility] Address: [address] [place] [address] Performed By: #### 5 7021-8 ####[facility] LABCLIA [id number] [place] [address] Basophils/100 WBC (Bld) 1.4 % Normal [facility] Comment on above: Order Comment: Speci men Type: BLOOD SPECIMENOrdering Facility: [facility] Address: [address] [place] [address] Performed By: #### 5 7021-8 ####[facility] LABCLIA [id number] [place] [address] Differential cell count method Nom (Bld) Auto Normal [facility] Comment on above: Order Comment: Speci men Type: BLOOD SPECIMENOrdering Facility: [facility] Address: [address] [place] [address] Performed By: #### 5 7021-8 ####[facility] LABCLIA [id number] [place] [address] Eosinophils (Bld) [#/Vol] 0.23 10*3/uL Normal <0.46 [facility] Comment on above: Order Comment: Speci men Type: BLOOD SPECIMENOrdering Facility: [facility] Address: [address] [place] [address] Performed By: #### 5 7021-8 ####[facility] LABCLIA [id number] [place] [address] Eosinophils/100 WBC (Bld) 5.2 % Normal [facility] Comment on above: Order Comment: Speci men Type: BLOOD SPECIMENOrdering Facility: [facility] Address: [address] [place] [address] Performed By: #### 5 7021-8 ####[facility] LABCLIA [id number] [place] [address] Erythrocyte distribution width (RBC) [Ratio] 14.0 % Normal 11.5-15.0 [facility] Comment on above: Order Comment: Speci men Type: BLOOD SPECIMENOrdering Facility: [facility] Address: [address] [place] [address] Performed By: #### 5 7021-8 ####[facility] LABCLIA [id number] [place] [address] Hematocrit (Bld) [Volume fraction] 39.6 % Normal 39.0-51.0 [facility] Comment on above: Order Comment: Speci men Type: BLOOD SPECIMENOrdering Facility: [facility] Address: [address] [place] [address] Performed By: #### 5 7021-8 ####[facility] LABCLIA [id number] [place] [address] Hemoglobin (Bld) [Mass/Vol] 13.8 g/dL Normal 13.0-17.0 [facility] Comment on above: Order Comment: Speci men Type: BLOOD SPECIMENOrdering Facility: [facility] Address: [address] [place] [address] Performed By: #### 5 7021-8 ####[facility] LABCLIA [id number] [place] [address] Immature granulocytes (Bld) [#/Vol] 0.04 10*3/uL Normal <0.10 [facility] Comment on above: Order Comment: Speci men Type: BLOOD SPECIMENOrdering Facility: [facility] Address: [address] [place] [address] Performed By: #### 5 7021-8 ####[facility] LABCLIA [id number] [place] [address] Immature granulocytes/100 WBC (Bld) 0.9 % Normal [facility] Comment on above: Order Comment: Speci men Type: BLOOD SPECIMENOrdering Facility: [facility] Address: [address] [place] [address] Performed By: #### 5 7021-8 ####[facility] LABCLIA [id number] [place] [address] Lymphocytes (Bld) [#/Vol] 0.46 10*3/uL Low 1.00-4.00 [facility] Comment on above: Order Comment: Speci men Type: BLOOD SPECIMENOrdering Facility: [facility] Address: [address] [place] [address] Performed By: #### 5 7021-8 ####[facility] LABCLIA [id number] [place] [address] Lymphocytes/100 WBC (Bld) 10.5 % Normal [facility] Comment on above: Order Comment: Speci men Type: BLOOD SPECIMENOrdering Facility: [facility] Address: [address] [place] [address] Performed By: #### 5 7021-8 ####[facility] LABCLIA [id number] [place] [address] MCH (RBC) [Entitic mass] 30.8 pg Normal 26.0-34.0 [facility] Comment on above: Order Comment: Speci men Type: BLOOD SPECIMENOrdering Facility: [facility] Address: [address] [place] [address] Performed By: #### 5 7021-8 ####[facility] LABCLIA [id number] [place] [address] MCHC (RBC) [Mass/Vol] 34.8 g/dL Normal 30.5-36.0 [facility] Comment on above: Order Comment: Speci men Type: BLOOD SPECIMENOrdering Facility: [facility] Address: [address] [place] [address] Performed By: #### 5 7021-8 ####[facility] LABCLIA [id number] [place] [address] MCV (RBC) [Entitic vol] 88.4 fL Normal 80.0-100.0 [facility] Comment on above: Order Comment: Speci men Type: BLOOD SPECIMENOrdering Facility: [facility] Address: [address] [place] [address] Performed By: #### 5 7021-8 ####[facility] LABCLIA [id number] [place] [address] Monocytes (Bld) [#/Vol] 0.82 10*3/uL Normal <0.87 [facility] Comment on above: Order Comment: Speci men Type: BLOOD SPECIMENOrdering Facility: [facility] Address: [address] [place] [address] Performed By: #### 5 7021-8 ####[facility] LABCLIA [id number] [place] [address] Monocytes/100 WBC (Bld) 18.7 % Normal [facility] Comment on above: Order Comment: Speci men Type: BLOOD SPECIMENOrdering Facility: [facility] Address: [address] [place] [address] Performed By: #### 5 7021-8 ####[facility] LABCLIA [id number] [place] [address] Neutrophils (Bld) [#/Vol] 2.78 10*3/uL Normal 1.45-7.50 [facility] Comment on above: Order Comment: Speci men Type: BLOOD SPECIMENOrdering Facility: [facility] Address: [address] [place] [address] Performed By: #### 5 7021-8 ####[facility] LABCLIA [id number] [place] [address] Neutrophils/100 WBC (Bld) 63.3 % Normal [facility] Comment on above: Order Comment: Speci men Type: BLOOD SPECIMENOrdering Facility: [facility] Address: [address] [place] [address] Performed By: #### 5 7021-8 ####[facility] LABCLIA [id number] [place] [address] Nucleated RBC (Bld) [#/Vol] 10*3/uL Normal <0.01 [facility] Comment on above: Order Comment: Speci men Type: BLOOD SPECIMENOrdering Facility: [facility] Address: [address] [place] [address] Performed By: #### 5 7021-8 ####[facility] LABCLIA [id number] [place] [address] Nucleated RBC/100 WBC (Bld) [Ratio] 0.0 /100 WBC Normal [facility] Comment on above: Order Comment: Speci men Type: BLOOD SPECIMENOrdering Facility: [facility] Address: [address] [place] [address] Performed By: #### 5 7021-8 ####[facility] LABCLIA [id number] [place] [address] Platelet mean volume (Bld) [Entitic vol] 10.0 fL Normal 9.0-12.7 [facility] Comment on above: Order Comment: Speci men Type: BLOOD SPECIMENOrdering Facility: [facility] Address: [address] [place] [address] Performed By: #### 5 7021-8 ####[facility] LABCLIA [id number] [place] [address] Platelets (Bld) [#/Vol] 165 10*3/uL Normal 150-400 [facility] Comment on above: Order Comment: Speci men Type: BLOOD SPECIMENOrdering Facility: [facility] Address: [address] [place] [address] Performed By: #### 5 7021-8 ####[facility] LABCLIA [id number] [place] [address] RBC (Bld) [#/Vol] 4.48 10*6/uL Normal 4.20-6.00 [facility] Comment on above: Order Comment: Speci men Type: BLOOD SPECIMENOrdering Facility: [facility] Address: [address] [place] [address] Performed By: #### 5 7021-8 ####[facility] LABCLIA [id number] [place] [address] WBC (Bld) [#/Vol] 4.39 10*3/uL Normal 3.70-11.00 [facility] Comment on above: Order Comment: Speci men Type: BLOOD SPECIMENOrdering Facility: [facility] Address: [address] [place] [address] Performed By: #### 5 7021-8 ####[facility] LABIA [id number] [place] [address] CNOVSPon 10-28-2023 CNOVSP Normal [facility] Comprehensive metabolic 2000 panelon 10-28-2023 Albumin [Mass/Vol] 4.2 g/dL Normal 3.9-4.9 [facility] Comment on above: Order Comment: Speci men Type: BLOOD SPECIMENOrdering Facility: [facility] Address: [address] [place] [address] Performed By: #### 2 4323-8 ####[facility] LABCLIA [id number] [place] [address] ALP [Catalytic activity/Vol] 163 U/L High 38-113 [facility] Comment on above: Order Comment: Speci men Type: BLOOD SPECIMENOrdering Facility: [facility] Address: [address] [place] [address] Performed By: #### 2 4323-8 ####[facility] LABCLIA [id number] [place] [address] ALT [Catalytic activity/Vol] 19 U/L Normal 10-54 [facility] Comment on above: Order Comment: Speci men Type: BLOOD SPECIMENOrdering Facility: [facility] Address: [address] [place] [address] Performed By: #### 2 4323-8 ####[facility] LABCLIA [id number] [place] [address] Anion gap [Moles/Vol] 15 mmol/L Normal 9-18 [facility] Comment on above: Order Comment: Speci men Type: BLOOD SPECIMENOrdering Facility: [facility] Address: [address] [place] [address] Performed By: #### 2 4323-8 ####[facility] LABCLIA [id number] [place] [address] AST [Catalytic activity/Vol] 19 U/L Normal 14-40 [facility] Comment on above: Order Comment: Speci men Type: BLOOD SPECIMENOrdering Facility: [facility] Address: [address] [place] [address] Performed By: #### 2 4323-8 ####[facility] LABCLIA [id number] [place] [address] Bilirubin [Mass/Vol] 0.3 mg/dL Normal 0.2-1.3 [facility] Comment on above: Order Comment: Speci men Type: BLOOD SPECIMENOrdering Facility: [facility] Address: [address] [place] [address] Performed By: #### 2 4323-8 ####[facility] LABCLIA [id number] [place] [address] Calcium [Mass/Vol] 9.7 mg/dL Normal 8.5-10.2 [facility] Comment on above: Order Comment: Speci men Type: BLOOD SPECIMENOrdering Facility: [facility] Address: [address] [place] [address] Performed By: #### 2 4323-8 ####[facility] LABCLIA [id number] [place] [address] Chloride [Moles/Vol] 104 mmol/L Normal 97-105 [facility] Comment on above: Order Comment: Speci men Type: BLOOD SPECIMENOrdering Facility: [facility] Address: [address] [place] [address] Performed By: #### 2 4323-8 ####[facility] LABCLIA [id number] [place] [address] CO2 [Moles/Vol] 21 mmol/L Low 22-30 [facility] Comment on above: Order Comment: Speci men Type: BLOOD SPECIMENOrdering Facility: [facility] Address: [address] [place] [address] Performed By: #### 2 4323-8 ####[facility] LABCLIA [id number] [place] [address] Creatinine [Mass/Vol] 0.96 mg/dL Normal 0.73-1.22 [facility] Comment on above: Order Comment: Speci men Type: BLOOD SPECIMENOrdering Facility: [facility] Address: [address] [place] [address] Performed By: #### 2 4323-8 ####[facility] LABCLIA [id number] [place] [address] Creatinine and Glomerular filtration rate.predicted panel (S/P/Bld) 87 mL/min/1.73m??? Normal >=60 [facility] Comment on above: Order Comment: Speci men Type: BLOOD SPECIMENOrdering Facility: [facility] Address: [address] [place] [address] Result Comment: Carol mated Glomerular Filtration Rate [...] actual GFR. Performed By: #### 2 4323-8 ####[facility] LABIA [id number] [place] [address] Glucose [Mass/Vol] 103 mg/dL High 74-99 [facility] Comment on above: Order Comment: Speci razia Type: BLOOD SPECIMENOrdering Facility: [facility] Address: [address] [place] [address] Result Comment: The [place] [employer] (ADA) provides guidance for cutoff [...] Standards of Medical Care in Diabetes 2016, [place] [employer]. Diabetes Care. 2016.39(Suppl 1). Performed By: #### 2 4323-8 ####[facility] LABIA [id number] [place] [address] Potassium [Moles/Vol] 4.3 mmol/L Normal 3.7-5.1 [facility] Comment on above: Order Comment: Speci men Type: BLOOD SPECIMENOrdering Facility: [facility] Address: [address] [place] [address] Performed By: #### 2 4323-8 ####[facility] LABCLIA [id number] [place] [address] Protein [Mass/Vol] 7.1 g/dL Normal 6.3-8.0 [facility] Comment on above: Order Comment: Speci men Type: BLOOD SPECIMENOrdering Facility: [facility] Address: [address] [place] [address] Performed By: #### 2 4323-8 ####[facility] LABIA [id number] [place] [address] Sodium [Moles/Vol] 140 mmol/L Normal 136-144 [facility] Comment on above: Order Comment: Speci men Type: BLOOD SPECIMENOrdering Facility: [facility] Address: [address] [place] [address] Performed By: #### 2 4323-8 ####[facility] LABIA [id number] [place] [address] Urea nitrogen [Mass/Vol] 15 mg/dL Normal 9-24 [facility] Comment on above: Order Comment: Speci men Type: BLOOD SPECIMENOrdering Facility: [facility] Address: [address] [place] [address] Performed By: #### 2 4323-8 ####[facility] LABIA [id number] [place] [address] CNPNon 10-23-2023 CNPN Normal [facility] CBC W Auto Differential pane l (Bld)on 09-30-2023 Basophils (Bld) [#/Vol] 0.06 10*3/uL <0.11 k/uL [facility] Basophils/100 WBC (Bld) 1.1 % [facility] Differential cell count method Nom (Bld) Auto [facility] Eosinophils (Bld) [#/Vol] 0.24 10*3/uL <0.46 k/uL [facility] Eosinophils/100 WBC (Bld) 4.4 % [facility] Erythrocyte distribution width (RBC) [Ratio] 14.6 % 11.5 - 15.0 % [facility] Hematocrit (Bld) [Volume fraction] 40.7 % 39.0 - 51.0 % [facility] Hemoglobin (Bld) [Mass/Vol] 14.1 g/dL 13.0 - 17.0 g/dL [facility] Immature granulocytes (Bld) [#/Vol] 0.07 10*3/uL <0.10 k/uL [facility] Immature granulocytes/100 WBC (Bld) 1.3 % [facility] Lymphocytes (Bld) [#/Vol] 0.80 10*3/uL Low 1.00 - 4.00 k/uL [facility] Lymphocytes/100 WBC (Bld) 14.7 % [facility] MCH (RBC) [Entitic mass] 30.5 pg 26.0 - 34.0 pg [facility] MCHC (RBC) [Mass/Vol] 34.6 g/dL 30.5 - 36.0 g/dL [facility] MCV (RBC) [Entitic vol] 87.9 fL 80.0 - 100.0 fL [facility] Monocytes (Bld) [#/Vol] 1.18 10*3/uL High <0.87 k/uL [facility] Monocytes/100 WBC (Bld) 21.7 % [facility] Neutrophils (Bld) [#/Vol] 3.08 10*3/uL 1.45 - 7.50 k/uL [facility] Neutrophils/100 WBC (Bld) 56.8 % [facility] Nucleated RBC (Bld) [#/Vol] <0.01 k/uL [facility] Nucleated RBC/100 WBC (Bld) [Ratio] 0.0 /100 WBC [facility] Platelet mean volume (Bld) [Entitic vol] 9.1 fL 9.0 - 12.7 fL [facility] Platelets (Bld) [#/Vol] 194 10*3/uL 150 - 400 k/uL [facility] RBC (Bld) [#/Vol] 4.63 10*6/uL 4.20 - 6.00 m/uL [facility] WBC (Bld) [#/Vol] 5.43 10*3/uL 3.70 - 11.00 k/uL [facility] Basophils (Bld) [#/Vol] 0.06 10*3/uL Normal <0.11 [facility] Comment on above: Order Comment: Speci men Type: BLOOD SPECIMENOrdering Facility: [facility] Address: [address] [place] [address] Performed By: #### 5 7021-8 ####[facility] LABCLIA [id number] [place] [address] Basophils/100 WBC (Bld) 1.1 % Normal [facility] Comment on above: Order Comment: Speci men Type: BLOOD SPECIMENOrdering Facility: [facility] Address: [address] [place] [address] Performed By: #### 5 7021-8 ####[facility] LABCLIA [id number] [place] [address] Differential cell count method Nom (Bld) Auto Normal [facility] Comment on above: Order Comment: Speci men Type: BLOOD SPECIMENOrdering Facility: [facility] Address: [address] [place] [address] Performed By: #### 5 7021-8 ####[facility] LABCLIA [id number] [place] [address] Eosinophils (Bld) [#/Vol] 0.24 10*3/uL Normal <0.46 [facility] Comment on above: Order Comment: Speci men Type: BLOOD SPECIMENOrdering Facility: [facility] Address: [address] [place] [address] Performed By: #### 5 7021-8 ####[facility] LABCLIA [id number] [place] [address] Eosinophils/100 WBC (Bld) 4.4 % Normal [facility] Comment on above: Order Comment: Speci men Type: BLOOD SPECIMENOrdering Facility: [facility] Address: [address] [place] [address] Performed By: #### 5 7021-8 ####[facility] LABCLIA [id number] [place] [address] Erythrocyte distribution width (RBC) [Ratio] 14.6 % Normal 11.5-15.0 [facility] Comment on above: Order Comment: Speci men Type: BLOOD SPECIMENOrdering Facility: [facility] Address: [address] [place] [address] Performed By: #### 5 7021-8 ####[facility] LABCLIA [id number] [place] [address] Hematocrit (Bld) [Volume fraction] 40.7 % Normal 39.0-51.0 [facility] Comment on above: Order Comment: Speci men Type: BLOOD SPECIMENOrdering Facility: [facility] Address: [address] [place] [address] Performed By: #### 5 7021-8 ####[facility] LABCLIA [id number] [place] [address] Hemoglobin (Bld) [Mass/Vol] 14.1 g/dL Normal 13.0-17.0 [facility] Comment on above: Order Comment: Speci men Type: BLOOD SPECIMENOrdering Facility: [facility] Address: [address] [place] [address] Performed By: #### 5 7021-8 ####[facility] LABCLIA [id number] [place] [address] Immature granulocytes (Bld) [#/Vol] 0.07 10*3/uL Normal <0.10 [facility] Comment on above: Order Comment: Speci men Type: BLOOD SPECIMENOrdering Facility: [facility] Address: [address] [place] [address] Performed By: #### 5 7021-8 ####[facility] LABCLIA [id number] [place] [address] Immature granulocytes/100 WBC (Bld) 1.3 % Normal [facility] Comment on above: Order Comment: Speci men Type: BLOOD SPECIMENOrdering Facility: [facility] Address: [address] [place] [address] Performed By: #### 5 7021-8 ####[facility] LABCLIA [id number] [place] [address] Lymphocytes (Bld) [#/Vol] 0.80 10*3/uL Low 1.00-4.00 [facility] Comment on above: Order Comment: Speci men Type: BLOOD SPECIMENOrdering Facility: [facility] Address: [address] [place] [address] Performed By: #### 5 7021-8 ####[facility] LABCLIA [id number] [place] [address] Lymphocytes/100 WBC (Bld) 14.7 % Normal [facility] Comment on above: Order Comment: Speci men Type: BLOOD SPECIMENOrdering Facility: [facility] Address: [address] [place] [address] Performed By: #### 5 7021-8 ####[facility] LABCLIA [id number] [place] [address] MCH (RBC) [Entitic mass] 30.5 pg Normal 26.0-34.0 [facility] Comment on above: Order Comment: Speci men Type: BLOOD SPECIMENOrdering Facility: [facility] Address: [address] [place] [address] Performed By: #### 5 7021-8 ####[facility] LABCLIA [id number] [place] [address] MCHC (RBC) [Mass/Vol] 34.6 g/dL Normal 30.5-36.0 [facility] Comment on above: Order Comment: Speci men Type: BLOOD SPECIMENOrdering Facility: [facility] Address: [address] [place] [address] Performed By: #### 5 7021-8 ####[facility] LABCLIA [id number] [place] [address] MCV (RBC) [Entitic vol] 87.9 fL Normal 80.0-100.0 [facility] Comment on above: Order Comment: Speci men Type: BLOOD SPECIMENOrdering Facility: [facility] Address: [address] [place] [address] Performed By: #### 5 7021-8 ####[facility] LABCLIA [id number] [place] [address] Monocytes (Bld) [#/Vol] 1.18 10*3/uL High <0.87 [facility] Comment on above: Order Comment: Speci men Type: BLOOD SPECIMENOrdering Facility: [facility] Address: [address] [place] [address] Performed By: #### 5 7021-8 ####[facility] LABCLIA [id number] [place] [address] Monocytes/100 WBC (Bld) 21.7 % Normal [facility] Comment on above: Order Comment: Speci men Type: BLOOD SPECIMENOrdering Facility: [facility] Address: [address] [place] [address] Performed By: #### 5 7021-8 ####[facility] LABCLIA [id number] [place] [address] Neutrophils (Bld) [#/Vol] 3.08 10*3/uL Normal 1.45-7.50 [facility] Comment on above: Order Comment: Speci men Type: BLOOD SPECIMENOrdering Facility: [facility] Address: [address] [place] [address] Performed By: #### 5 7021-8 ####[facility] LABCLIA [id number] [place] [address] Neutrophils/100 WBC (Bld) 56.8 % Normal [facility] Comment on above: Order Comment: Speci men Type: BLOOD SPECIMENOrdering Facility: [facility] Address: [address] [place] [address] Performed By: #### 5 7021-8 ####[facility] LABCLIA [id number] [place] [address] Nucleated RBC (Bld) [#/Vol] 10*3/uL Normal <0.01 [facility] Comment on above: Order Comment: Speci men Type: BLOOD SPECIMENOrdering Facility: [facility] Address: [address] [place] [address] Performed By: #### 5 7021-8 ####[facility] LABCLIA [id number] [place] [address] Nucleated RBC/100 WBC (Bld) [Ratio] 0.0 /100 WBC Normal [facility] Comment on above: Order Comment: Speci men Type: BLOOD SPECIMENOrdering Facility: [facility] Address: [address] [place] [address] Performed By: #### 5 7021-8 ####[facility] LABCLIA [id number] [place] [address] Platelet mean volume (Bld) [Entitic vol] 9.1 fL Normal 9.0-12.7 [facility] Comment on above: Order Comment: Speci men Type: BLOOD SPECIMENOrdering Facility: [facility] Address: [address] [place] [address] Performed By: #### 5 7021-8 ####[facility] LABCLIA [id number] [place] [address] Platelets (Bld) [#/Vol] 194 10*3/uL Normal 150-400 [facility] Comment on above: Order Comment: Speci men Type: BLOOD SPECIMENOrdering Facility: [facility] Address: [address] [place] [address] Performed By: #### 5 7021-8 ####[facility] LABCLIA [id number] [place] [address] RBC (Bld) [#/Vol] 4.63 10*6/uL Normal 4.20-6.00 [facility] Comment on above: Order Comment: Speci men Type: BLOOD SPECIMENOrdering Facility: [facility] Address: [place] [address] Performed By: #### 5 7021-8 ####[facility] LABCLIA [id number] [place] [address] WBC (Bld) [#/Vol] 5.43 10*3/uL Normal 3.70-11.00 [facility] Comment on above: Order Comment: Speci men Type: BLOOD SPECIMENOrdering Facility: [facility] Address: [place] [address] Performed By: #### 5 7021-8 ####[facility] LABCLIA [id number] [place] [address] CNOVSPon 09-30-2023 CNOVSP Normal [facility] Comprehensive metabolic 2000 panelon 09-30-2023 Albumin [Mass/Vol] 4.3 g/dL 3.9 - 4.9 g/dL [facility] ALP [Catalytic activity/Vol] 175 U/L High 38 - 113 U/L [facility] ALT [Catalytic activity/Vol] 18 U/L 10 - 54 U/L [facility] Anion gap [Moles/Vol] 11 mmol/L 9 - 18 mmol/L [facility] AST [Catalytic activity/Vol] 16 U/L 14 - 40 U/L [facility] Bilirubin [Mass/Vol] 0.2 mg/dL 0.2 - 1 .3 mg/dL [facility] Calcium [Mass/Vol] 9.5 mg/dL 8.5 - 10. 2 mg/dL [facility] Chloride [Moles/Vol] 104 mmol/L 97 - 10 5 mmol/L [facility] CO2 [Moles/Vol] 24 mmol/L 22 - 30 mmol/L [facility] Creatinine [Mass/Vol] 0.97 mg/dL 0.73 - 1.22 mg/dL [facility] Estimated Glomerular Filtration Rate 86 mL/min/1.73m >=60 mL/min/1.7 3m [facility] Glucose [Mass/Vol] 101 mg/dL High 74 - 99 mg/dL [facility] Potassium [Moles/Vol] 4.2 mmol/L 3.7 - 5.1 mmol/L [facility] Protein [Mass/Vol] 7.0 g/dL 6.3 - 8.0 g/dL [facility] Sodium [Moles/Vol] 139 mmol/L 136 - 144 mmol/L [facility] Urea nitrogen [Mass/Vol] 25 mg/dL High 9 - 24 mg/dL [facility] Albumin [Mass/Vol] 4.3 g/dL Normal 3.9-4.9 [facility] Comment on above: Order Comment: Speci men Type: BLOOD SPECIMENOrdering Facility: [facility] Address: [address] [place] [address] Performed By: #### 2 4323-8, 3083- ####[facility] LABCLIA [id number] [place] [address] ALP [Catalytic activity/Vol] 175 U/L High 38-113 [facility] Comment on above: Order Comment: Speci men Type: BLOOD SPECIMENOrdering Facility: [facility] Address: [address] [place] [address] Performed By: #### 2 4323-8, 3083- ####[facility] LABCLIA [id number] [place] [address] ALT [Catalytic activity/Vol] 18 U/L Normal 10-54 [facility] Comment on above: Order Comment: Speci men Type: BLOOD SPECIMENOrdering Facility: [facility] Address: [address] [place], [place] [address] Performed By: #### 2 4323-8, 308- ####[facility] LABCLIA [id number] [place] [address] Anion gap [Moles/Vol] 11 mmol/L Normal 9-18 [facility] Comment on above: Order Comment: Speci men Type: BLOOD SPECIMENOrdering Facility: [facility] Address: [address] [place] [address] Performed By: #### 2 4323-8, 3083- ####[facility] LABCLIA [id number] [place] [address] AST [Catalytic activity/Vol] 16 U/L Normal 14-40 [facility] Comment on above: Order Comment: Speci men Type: BLOOD SPECIMENOrdering Facility: [facility] Address: [address] [place] [address] Performed By: #### 2 4323-8, 3083- ####[facility] LABCLIA [id number] [place] [address] Bilirubin [Mass/Vol] 0.2 mg/dL Normal 0.2-1.3 [facility] Comment on above: Order Comment: Speci men Type: BLOOD SPECIMENOrdering Facility: [facility] Address: [address] [place] [address] Performed By: #### 2 4323-8, 3083-11 ####[facility] LABCLIA [id number] [place] [address] Calcium [Mass/Vol] 9.5 mg/dL Normal 8.5-10.2 [facility] Comment on above: Order Comment: Speci men Type: BLOOD SPECIMENOrdering Facility: [facility] Address: [address] [place] [address] Performed By: #### 2 4323-8, 3083-11 ####[facility] LABCLIA [id number] [place] [address] Chloride [Moles/Vol] 104 mmol/L Normal 97-105 [facility] Comment on above: Order Comment: Speci men Type: BLOOD SPECIMENOrdering Facility: [facility] Address: [address] [place] [address] Performed By: #### 2 4323-8, 3083- ####[facility] LABCLIA [id number] [place] [address] CO2 [Moles/Vol] 24 mmol/L Normal 22-30 [facility] Comment on above: Order Comment: Speci men Type: BLOOD SPECIMENOrdering Facility: [facility] Address: [address] [place] [address] Performed By: #### 2 4323-8, 3083-11 ####[facility] LABCLIA [id number] [place] [address] Creatinine [Mass/Vol] 0.97 mg/dL Normal 0.73-1.22 [facility] Comment on above: Order Comment: Speci men Type: BLOOD SPECIMENOrdering Facility: [facility] Address: [address] [place] [address] Performed By: #### 2 4323-8, 3083-11 ####[facility] LABCLIA [id number] [place] [address] Creatinine and Glomerular filtration rate.predicted panel (S/P/Bld) 86 mL/min/1.73m??? Normal >=60 [facility] Comment on above: Order Comment: Speci men Type: BLOOD SPECIMENOrdering Facility: [facility] Address: [address] [place] [address] Result Comment: Carol mated Glomerular Filtration Rate [...] GFR. Performed By: #### 2 4323-8, 3083-11 ####[facility] LABCLIA [id number] [place] [address] Glucose [Mass/Vol] 101 mg/dL High 74-99 [facility] Comment on above: Order Comment: Speci men Type: BLOOD SPECIMENOrdering Facility: [facility] Address: [address] [place] [address] Result Comment: The [place] [employer] (ADA) provides guidance for cutoff [...] Standards of Medical Care in Diabetes 2016, [place] [employer]. Diabetes Care. 2016.39(Suppl 1). Performed By: #### 2 4323-8, 3083- ####[facility] LABCLIA [id number] [place] [address] Potassium [Moles/Vol] 4.2 mmol/L Normal 3.7-5.1 [facility] Comment on above: Order Comment: Speci men Type: BLOOD SPECIMENOrdering Facility: [facility] Address: [address] [place] [address] Performed By: #### 2 4328, 3083-11 ####[facility] LABIA [id number] [place] [address] Protein [Mass/Vol] 7.0 g/dL Normal 6.3-8.0 [facility] Comment on above: Order Comment: Speci men Type: BLOOD SPECIMENOrdering Facility: [facility] Address: [address] [place] [address] Performed By: #### 2 43201-08, 3083-11 ####[facility] LABCLIA [id number] [place] [address] Sodium [Moles/Vol] 139 mmol/L Normal 136-144 [facility] Comment on above: Order Comment: Speci men Type: BLOOD SPECIMENOrdering Facility: [facility] Address: [address] [place] [address] Performed By: #### 2 43238, 3083-11 ####[facility] LABCLIA [id number] [place] [address] Urea nitrogen [Mass/Vol] 25 mg/dL High 9-24 [facility] Comment on above: Order Comment: Speci men Type: BLOOD SPECIMENOrdering Facility: [facility] Address: [place] [id number] Performed By: #### 2 4323-8, 3084-1 ####OLESYA [facility] LABCLIA [id number] [place] [address] URIC ACID BLOODon 09-30-2023 Urate [Mass/Vol] 7.2 mg/dL 4.0 - 8.1 mg/dL [facility] Urate SerPl-mCncon Urate [Mass/Vol] 7.2 mg/dL Normal 4.0-8.1 [facility] Comment on above: Order Comment: Speci men Type: BLOOD SPECIMENOrdering Facility: [facility] Address: [place] [id number] Performed By: #### 2 4323-8, 3084-1 ####[facility] LABCLIA [id number] [place] [address] GLUCOSE, BLOOD (POC)on 09-23 Glucose [Mass/Vol] 90 mg/dL 74 - 99 mg/dL [facility] Comment on above: Location:[facility], [address] , [place], [place], [address] The Accu-Chek Inform II glucose meter has not been approved for testing on patients receiving intensive medical intervention or therapy and results from this point of care glucose test should not be used for patient management decisions in these cases. Inaccurate results may also occur from other interfering factors, such as N-acetylcysteine (blood concentrations of greater than 5mg/dL), galactose, extremes of hematocrit (<10 or >65), or high doses of ascorbic acid (vitamin C) greater than 3mg/dL. Consider alternate testing mechanisms (e.g. core lab, blood gas instrument) in the above situations. [facility] NM PET/CT SKULL-THIGH SUBQon 09-23-2023 NM PET/CT SKULL-THIGH SUBQ Normal [facility] PET+CT Guidance for localiza tion of tumor of Skull base to mid-thigh-- W 18F-FDG Bella 09-23-2023 IMPRESSION:Most of t he previously present hypermetabolic lymphadenopathy is regressed/resolved. residual hypermetabolic right inguinal lymph node 1. Neck: No suspicious hypermetabolic foci 2. Chest: No evidence of FDG avid neoplastic process 3. Abdomen and pelvis: residual hypermetabolic right inguinal lymph node 4. Skeleton: No hypermetabolic osseous lesions. Deauville Criteria score : 4 Transcribe Date/Time: Sep 23 2023 1:27P Dictated by: URBANO LAURA MD This examination was interpreted and the report reviewed and electronically signed by: URBANO LAURA MD on Sep 23 2023 1:35PM EST Thank you for allowing us to participate in the care of your patient. Should there be any questions regarding this interpretation, please call [phone]. If you are unable to reach us at the number above, please feel free to contact [facility] eRadiology at [phone]. 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 TECHNIQUE: 10.7 mCi 18-FDG IV, followed about 1 hour later by PET imaging from base of the skull to proximal femur. Non contrast CT was performed for attenuation correction and anatomic localization purposes. CT Dose-Length Product (DLP): 208 mGy*cm. CT Dose Reduction Employed: Yes BLOOD GLUCOSE: 90 mg/dL Comparison: Prior PET CT dated 05/12/23. RESULT: NECK: Likely physiological activity in the oral cavity, tonsillar regions, salivary glands. No suspicious hypermetabolic foci. There is no hypermetabolic cervical lymphadenopathy. CHEST: Right chest port. There is no hypermetabolic hilar or mediastinal lymphadenopathy. There is no hypermetabolic axillary lymphadenopathy. There are no hypermetabolic foci in the lungs. Emphysematous changes. ABDOMEN AND PELVIS: The liver is slightly heterogeneous activity but no focal lesions are identified. There are no hypermetabolic foci in the liver, spleen, adrenals. Most of the abdominal and pelvic lymphadenopathy is regressed/resolved. There is a residual hypermetabolic right inguinal lymph node about 1.9 x 3.3 cm ( Max SUV 19). Physiologic activity is noted in the liver, renal collecting system, bladder and bowel. SKELETON: There are no hypermetabolic osseous lesions. Manager Of Purchasing (topogram) images:No additional findings DIVISION OF RADIOLOGY Provider, 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 TECHNIQUE: 10.7 mCi 18-FDG IV, followed about 1 hour later by PET imaging from base of the skull to proximal femur. Non contrast CT was performed for attenuation correction and anatomic localization purposes. CT Dose-Length Product (DLP): 208 mGy*cm. CT Dose Reduction Employed: Yes BLOOD GLUCOSE: 90 mg/dL Comparison: Prior PET CT dated 05/12/23. RESULT: NECK: Likely physiological activity in the oral cavity, tonsillar regions, salivary glands. No suspicious hypermetabolic foci. There is no hypermetabolic cervical lymphadenopathy. CHEST: Right chest port. There is no hypermetabolic hilar or mediastinal lymphadenopathy. There is no hypermetabolic axillary lymphadenopathy. There are no hypermetabolic foci in the lungs. Emphysematous changes. ABDOMEN AND PELVIS: The liver is slightly heterogeneous activity but no focal lesions are identified. There are no hypermetabolic foci in the liver, spleen, adrenals. Most of the abdominal and pelvic lymphadenopathy is regressed/resolved. There is a residual hypermetabolic right inguinal lymph node about 1.9 x 3.3 cm ( Max SUV 19). Physiologic activity is noted in the liver, renal collecting system, bladder and bowel. SKELETON: There are no hypermetabolic osseous lesions. Manager Of Purchasing (topogram) images:No additional findings IMPRESSION IMPRESSION:Most of the previously present hypermetabolic lymphadenopathy is regressed/resolved. residual hypermetabolic right inguinal lymph node 1. Neck: No suspicious hypermetabolic foci 2. Chest: No evidence of FDG avid neoplastic process 3. Abdomen and pelvis: residual hypermetabolic right inguinal lymph node 4. Skeleton: No hypermetabolic osseous lesions. Deauville Criteria score : 4 Transcribe Date/Time: Sep 23 2023 1:27P Dictated by: URBANO LAURA MD This examination was interpreted and the report reviewed and electronically signed by: URBANO LAURA MD on Sep 23 2023 1:35PM EST Thank you for allowing us to participate in the care of your patient. Should there be any questions regarding this interpretation, please call [phone]. If you are unable to reach us at the number above, please feel free to contact [facility] eRadiology at [phone]. [facility] Radiology Study observation (narrative) [facility] PET+CT Guidance for localiza tion of tumor of Skull base to mid-thigh-- W 18F-FDG IVOrdered By: Ccf Provider on 09-23-2023 [facility] CBC W Auto Differential pane l (Bld)on 09-02-2023 Basophils (Bld) [#/Vol] 0.06 10*3/uL Normal <0.11 [facility] Comment on above: Order Comment: Speci men Type: BLOOD SPECIMENOrdering Facility: [facility] Address: [address] [place] [address] Performed By: #### 5 7021-8 ####[facility] LABCLIA [id number] [place] [address] Basophils/100 WBC (Bld) 1.1 % Normal [facility] Comment on above: Order Comment: Speci men Type: BLOOD SPECIMENOrdering Facility: [facility] Address: [address] [place] [address] Performed By: #### 5 7021-8 ####[facility] LABCLIA [id number] [place] [address] Differential cell count method Nom (Bld) Auto Normal [facility] Comment on above: Order Comment: Speci men Type: BLOOD SPECIMENOrdering Facility: [facility] Address: [address] [place] [address] Performed By: #### 5 7021-8 ####[facility] LABCLIA [id number] [place] [address] Eosinophils (Bld) [#/Vol] 0.21 10*3/uL Normal <0.46 [facility] Comment on above: Order Comment: Speci men Type: BLOOD SPECIMENOrdering Facility: [facility] Address: [address] [place] [address] Performed By: #### 5 7021-8 ####[facility] LABCLIA [id number] [place] [address] Eosinophils/100 WBC (Bld) 3.9 % Normal [facility] Comment on above: Order Comment: Speci men Type: BLOOD SPECIMENOrdering Facility: [facility] Address: [address] [place] [address] Performed By: #### 5 7021-8 ####[facility] LABCLIA [id number] [place] [address] Erythrocyte distribution width (RBC) [Ratio] 15.6 % High 11.5-15.0 [facility] Comment on above: Order Comment: Speci men Type: BLOOD SPECIMENOrdering Facility: [facility] Address: [address] [place] [address] Performed By: #### 5 7021-8 ####[facility] LABCLIA [id number] [place] [address] Hematocrit (Bld) [Volume fraction] 41.9 % Normal 39.0-51.0 [facility] Comment on above: Order Comment: Speci men Type: BLOOD SPECIMENOrdering Facility: [facility] Address: [address] [place] [address] Performed By: #### 5 7021-8 ####[facility] LABCLIA [id number] [place] [address] Hemoglobin (Bld) [Mass/Vol] 14.5 g/dL Normal 13.0-17.0 [facility] Comment on above: Order Comment: Speci men Type: BLOOD SPECIMENOrdering Facility: [facility] Address: [address] [place] [address] Performed By: #### 5 7021-8 ####[facility] LABCLIA [id number] [place] [address] Immature granulocytes (Bld) [#/Vol] 0.04 10*3/uL Normal <0.10 [facility] Comment on above: Order Comment: Speci men Type: BLOOD SPECIMENOrdering Facility: [facility] Address: [address] [place] [address] Performed By: #### 5 7021-8 ####[facility] LABCLIA [id number] [place] [address] Immature granulocytes/100 WBC (Bld) 0.7 % Normal [facility] Comment on above: Order Comment: Speci men Type: BLOOD SPECIMENOrdering Facility: [facility] Address: [address] [place] [address] Performed By: #### 5 7021-8 ####[facility] LABCLIA [id number] [place] [address] Lymphocytes (Bld) [#/Vol] 0.45 10*3/uL Low 1.00-4.00 [facility] Comment on above: Order Comment: Speci men Type: BLOOD SPECIMENOrdering Facility: [facility] Address: [address] [place] [address] Performed By: #### 5 7021-8 ####[facility] LABCLIA [id number] [place] [address] Lymphocytes/100 WBC (Bld) 8.4 % Normal [facility] Comment on above: Order Comment: Speci men Type: BLOOD SPECIMENOrdering Facility: [facility] Address: [address] [place] [address] Performed By: #### 5 7021-8 ####[facility] LABCLIA [id number] [place] [address] MCH (RBC) [Entitic mass] 30.1 pg Normal 26.0-34.0 [facility] Comment on above: Order Comment: Speci men Type: BLOOD SPECIMENOrdering Facility: [facility] Address: [address] [place] [address] Performed By: #### 5 7021-8 ####[facility] LABCLIA [id number] [place] [address] MCHC (RBC) [Mass/Vol] 34.6 g/dL Normal 30.5-36.0 [facility] Comment on above: Order Comment: Speci men Type: BLOOD SPECIMENOrdering Facility: [facility] Address: [address] [place] [address] Performed By: #### 5 7021-8 ####[facility] LABCLIA [id number] [place] [address] MCV (RBC) [Entitic vol] 86.9 fL Normal 80.0-100.0 [facility] Comment on above: Order Comment: Speci men Type: BLOOD SPECIMENOrdering Facility: [facility] Address: [address] [place] [address] Performed By: #### 5 7021-8 ####[facility] LABIA [id number] [place] [address] Monocytes (Bld) [#/Vol] 0.92 10*3/uL High <0.87 [facility] Comment on above: Order Comment: Speci men Type: BLOOD SPECIMENOrdering Facility: [facility] Address: [address] [place] [address] Performed By: #### 5 7021-8 ####[facility] LABCLIA [id number] [place] [address] Monocytes/100 WBC (Bld) 17.2 % Normal [facility] Comment on above: Order Comment: Speci men Type: BLOOD SPECIMENOrdering Facility: [facility] Address: [address] [place] [address] Performed By: #### 5 7021-8 ####[facility] LABCLIA [id number] [place] [address] Neutrophils (Bld) [#/Vol] 3.66 10*3/uL Normal 1.45-7.50 [facility] Comment on above: Order Comment: Speci men Type: BLOOD SPECIMENOrdering Facility: [facility] Address: [address] [place] [address] Performed By: #### 5 7021-8 ####[facility] LABCLIA [id number] [place] [address] Neutrophils/100 WBC (Bld) 68.7 % Normal [facility] Comment on above: Order Comment: Speci men Type: BLOOD SPECIMENOrdering Facility: [facility] Address: [address] [place] [address] Performed By: #### 5 7021-8 ####[facility] LABCLIA [id number] [place] [address] Nucleated RBC (Bld) [#/Vol] 10*3/uL Normal <0.01 [facility] Comment on above: Order Comment: Speci men Type: BLOOD SPECIMENOrdering Facility: [facility] Address: [address] [place] [address] Performed By: #### 5 7021-8 ####[facility] LABCLIA [id number] [place] [address] Nucleated RBC/100 WBC (Bld) [Ratio] 0.0 /100 WBC Normal [facility] Comment on above: Order Comment: Speci men Type: BLOOD SPECIMENOrdering Facility: [facility] Address: [address] [place] [address] Performed By: #### 5 7021-8 ####[facility] LABCLIA [id number] [place] [address] Platelet mean volume (Bld) [Entitic vol] 9.7 fL Normal 9.0-12.7 [facility] Comment on above: Order Comment: Speci men Type: BLOOD SPECIMENOrdering Facility: [facility] Address: [address] [place] [address] Performed By: #### 5 7021-8 ####[facility] LABCLIA [id number] [place] [address] Platelets (Bld) [#/Vol] 160 10*3/uL Normal 150-400 [facility] Comment on above: Order Comment: Speci men Type: BLOOD SPECIMENOrdering Facility: [facility] Address: [address] [place] [address] Performed By: #### 5 7021-8 ####[facility] LABCLIA [id number] [place] [address] RBC (Bld) [#/Vol] 4.82 10*6/uL Normal 4.20-6.00 [facility] Comment on above: Order Comment: Speci men Type: BLOOD SPECIMENOrdering Facility: [facility] Address: [address] [place] [address] Performed By: #### 5 7021-8 ####[facility] LABCLIA [id number] [place] [address] WBC (Bld) [#/Vol] 5.34 10*3/uL Normal 3.70-11.00 [facility] Comment on above: Order Comment: Speci men Type: BLOOD SPECIMENOrdering Facility: [facility] Address: [address] [place] [address] Performed By: #### 5 7021-8 ####[facility] LABCLIA [id number] [place] [address] CNOVSPon 09-02-2023 CNOVSP Normal [facility] metabolic 2000 panelon 09-02-2023 Albumin [Mass/Vol] 4.3 g/dL Normal 3.9-4.9 [facility] Comment on above: Order Comment: Speci men Type: BLOOD SPECIMENOrdering Facility: [facility] Address: [address] [place] [address] Performed By: #### 2 4323-8, 3084- ####[facility] LABCLIA [id number] [place] [address] ALP [Catalytic activity/Vol] 162 U/L High 38-113 [facility] Comment on above: Order Comment: Speci men Type: BLOOD SPECIMENOrdering Facility: [facility] Address: [address] [place] [address] Performed By: #### 2 4323-8, 3083- ####[facility] LABCLIA [id number] [place] [address] ALT [Catalytic activity/Vol] 20 U/L Normal 10-54 [facility] Comment on above: Order Comment: Speci men Type: BLOOD SPECIMENOrdering Facility: [facility] Address: [address] [place] [address] Performed By: #### 2 4323-8, 3083- ####[facility] LABCLIA [id number] [place] [address] Anion gap [Moles/Vol] 10 mmol/L Normal 9-18 [facility] Comment on above: Order Comment: Speci men Type: BLOOD SPECIMENOrdering Facility: [facility] Address: [address] [place] [address] Performed By: #### 2 4323-8, 3084- ####[facility] LABCLIA [id number] [place] [address] AST [Catalytic activity/Vol] 25 U/L Normal 14-40 [facility] Comment on above: Order Comment: Speci men Type: BLOOD SPECIMENOrdering Facility: [facility] Address: [address] [place] [address] Performed By: #### 2 4323-8, 3083-11 ####[facility] LABCLIA [id number] [place] [address] Bilirubin [Mass/Vol] 0.3 mg/dL Normal 0.2-1.3 [facility] Comment on above: Order Comment: Speci men Type: BLOOD SPECIMENOrdering Facility: [facility] Address: [address] [place] [address] Performed By: #### 2 4323-8, 3083-11 ####OLESYA [facility] LABCLIA [id number] [place] [address] Calcium [Mass/Vol] 9.7 mg/dL Normal 8.5-10.2 [facility] Comment on above: Order Comment: Speci men Type: BLOOD SPECIMENOrdering Facility: [facility] Address: [address] [place] [address] Performed By: #### 2 4323-8, 3083-11 ####[facility] LABIA [id number] [place] [address] Chloride [Moles/Vol] 103 mmol/L Normal 97-105 [facility] Comment on above: Order Comment: Speci men Type: BLOOD SPECIMENOrdering Facility: [facility] Address: [address] [place] [address] Performed By: #### 2 4323-8, 3083-11 ####[facility] LABCLIA [id number] [place] [address] CO2 [Moles/Vol] 26 mmol/L Normal 22-30 [facility] Comment on above: Order Comment: Speci men Type: BLOOD SPECIMENOrdering Facility: [facility] Address: [address] [place] [address] Performed By: #### 2 4323-8, 3083-11 ####[facility] LABCLIA [id number] [place] [address] Creatinine [Mass/Vol] 0.98 mg/dL Normal 0.73-1.22 [facility] Comment on above: Order Comment: Sara randle Type: BLOOD SPECIMENOrdering Facility: [facility] Address: [address] [place] [address] Performed By: #### 2 4323-8, 3083-11 ####[facility] LABCLIA [id number] [place] [address] Creatinine and Glomerular filtration rate.predicted panel (S/P/Bld) 85 mL/min/1.73m??? Normal >=60 [facility] Comment on above: Order Comment: Sara randle Type: BLOOD SPECIMENOrdering Facility: [facility] Address: [address] [place] [address] Result Comment: Carol mated Glomerular Filtration Rate [...] GFR. Performed By: #### 2 4323-8, 3083-11 ####[facility] LABCLIA [id number] [place] [address] Glucose [Mass/Vol] 104 mg/dL High 74-99 [facility] Comment on above: Order Comment: Sara randle Type: BLOOD SPECIMENOrdering Facility: [facility] Address: [address] [place] [address] Result Comment: The [place] [employer] (ADA) provides guidance for cutoff [...] Standards of Medical Care in Diabetes 2016, [place] [employer]. Diabetes Care. 2016.39(Suppl 1). Performed By: #### 2 4323-8, 3083- ####[facility] LABCLIA [id number] [place] [address] Potassium [Moles/Vol] 4.3 mmol/L Normal 3.7-5.1 [facility] Comment on above: Order Comment: Speci men Type: BLOOD SPECIMENOrdering Facility: [facility] Address: [address] [place] [address] Performed By: #### 2 4323-8, 3083-11 ####[facility] LABCLIA [id number] [place] [address] Protein [Mass/Vol] 7.3 g/dL Normal 6.3-8.0 [facility] Comment on above: Order Comment: Speci men Type: BLOOD SPECIMENOrdering Facility: [facility] Address: [address] [place] [address] Performed By: #### 2 4323-8, 3083-11 ####[facility] LABCLIA [id number] [place] [address] Sodium [Moles/Vol] 139 mmol/L Normal 136-144 [facility] Comment on above: Order Comment: Speci men Type: BLOOD SPECIMENOrdering Facility: [facility] Address: [address] [place] [address] Performed By: #### 2 4323-8, 3083-11 ####[facility] LABCLIA [id number] [place] [address] Urea nitrogen [Mass/Vol] 19 mg/dL Normal 9-24 [facility] Comment on above: Order Comment: Speci men Type: BLOOD SPECIMENOrdering Facility: [facility] Address: [address] [facility] [place] [facility] [place] [address] Performed By: #### 2 4323-8, 3084-1 ####[facility] LABCLIA [id number] [place] [address] Urate SerPl-mCncon Urate [Mass/Vol] 6.4 mg/dL Normal 4.0-8.1 [facility] Comment on above: Order Comment: Speci men Type: BLOOD SPECIMENOrdering Facility: [facility] Address: [address] [place] [id number] Performed By: #### 2 4323-8, 3084-1 ####[facility] LABCLIA [id number] [place] [address] Consultation Noteon 08-08-20 Consultation Note [id number] Normal [facility] CBC W Auto Differential pane l (Bld)on 08-05-2023 Basophils (Bld) [#/Vol] 0.08 10*3/uL <0.11 k/uL [facility] Basophils/100 WBC (Bld) 1.3 % [facility] Differential cell count method Nom (Bld) Auto [facility] Eosinophils (Bld) [#/Vol] 0.27 10*3/uL <0.46 k/uL [facility] Eosinophils/100 WBC (Bld) 4.4 % [facility] Erythrocyte distribution width (RBC) [Ratio] 16.2 % High 11.5 - 15.0 % [facility] Hematocrit (Bld) [Volume fraction] 41.6 % 39.0 - 51.0 % [facility] Hemoglobin (Bld) [Mass/Vol] 13.8 g/dL 13.0 - 17.0 g/dL [facility] Immature granulocytes (Bld) [#/Vol] 0.06 10*3/uL <0.10 k/uL [facility] Immature granulocytes/100 WBC (Bld) 1.0 % [facility] Lymphocytes (Bld) [#/Vol] 0.46 10*3/uL Low 1.00 - 4.00 k/uL [facility] Lymphocytes/100 WBC (Bld) 7.6 % [facility] MCH (RBC) [Entitic mass] 29.5 pg 26.0 - 34.0 pg [facility] MCHC (RBC) [Mass/Vol] 33.2 g/dL 30.5 - 36.0 g/dL [facility] MCV (RBC) [Entitic vol] 88.9 fL 80.0 - 100.0 fL [facility] Monocytes (Bld) [#/Vol] 1.03 10*3/uL High <0.87 k/uL [facility] Monocytes/100 WBC (Bld) 17.0 % [facility] Neutrophils (Bld) [#/Vol] 4.17 10*3/uL 1.45 - 7.50 k/uL [facility] Neutrophils/100 WBC (Bld) 68.7 % [facility] Nucleated RBC (Bld) [#/Vol] <0.01 k/uL [facility] Nucleated RBC/100 WBC (Bld) [Ratio] 0.0 /100 WBC [facility] Platelet mean volume (Bld) [Entitic vol] 10.3 fL 9.0 - 12.7 fL [facility] Platelets (Bld) [#/Vol] 143 10*3/uL Low 150 - 400 k/uL [facility] RBC (Bld) [#/Vol] 4.68 10*6/uL 4.20 - 6.00 m/uL [facility] WBC (Bld) [#/Vol] 6.07 10*3/uL 3.70 - 11.00 k/uL [facility] Basophils (Bld) [#/Vol] 0.08 10*3/uL Normal <0.11 [facility] Comment on above: Order Comment: Speci men Type: BLOOD SPECIMENOrdering Facility: [facility] Address: [address] [place] [address] Performed By: #### 5 7021-8 ####[facility] LABCLIA [id number] [place] [address] Basophils/100 WBC (Bld) 1.3 % Normal [facility] Comment on above: Order Comment: Speci men Type: BLOOD SPECIMENOrdering Facility: [facility] Address: [address] [place] [address] Performed By: #### 5 7021-8 ####[facility] LABCLIA [id number] [place] [address] Differential cell count method Nom (Bld) Auto Normal [facility] Comment on above: Order Comment: Speci men Type: BLOOD SPECIMENOrdering Facility: [facility] Address: [address] [place] [place] [address] Performed By: #### 5 7021-8 ####[facility] LABCLIA [id number] [place] [address] Eosinophils (Bld) [#/Vol] 0.27 10*3/uL Normal <0.46 [facility] Comment on above: Order Comment: Speci men Type: BLOOD SPECIMENOrdering Facility: [facility] Address: [address] [place] [address] Performed By: #### 5 7021-8 ####[facility] LABCLIA [id number] [place] [address] Eosinophils/100 WBC (Bld) 4.4 % Normal [facility] Comment on above: Order Comment: Speci men Type: BLOOD SPECIMENOrdering Facility: [facility] Address: [address] [place] [address] Performed By: #### 5 7021-8 ####[facility] LABCLIA [id number] [place] [address] Erythrocyte distribution width (RBC) [Ratio] 16.2 % High 11.5-15.0 [facility] Comment on above: Order Comment: Speci men Type: BLOOD SPECIMENOrdering Facility: [facility] Address: [address] [place] [address] Performed By: #### 5 7021-8 ####[facility] LABCLIA [id number] [place] [address] Hematocrit (Bld) [Volume fraction] 41.6 % Normal 39.0-51.0 [facility] Comment on above: Order Comment: Speci men Type: BLOOD SPECIMENOrdering Facility: [facility] Address: [address] [place] [address] Performed By: #### 5 7021-8 ####[facility] LABIA [id number] [place] [address] Hemoglobin (Bld) [Mass/Vol] 13.8 g/dL Normal 13.0-17.0 [facility] Comment on above: Order Comment: Speci men Type: BLOOD SPECIMENOrdering Facility: [facility] Address: [address] [place] [address] Performed By: #### 5 7021-8 ####[facility] LABIA [id number] [place] [address] Immature granulocytes (Bld) [#/Vol] 0.06 10*3/uL Normal <0.10 [facility] Comment on above: Order Comment: Speci men Type: BLOOD SPECIMENOrdering Facility: [facility] Address: [address] [place] [address] Performed By: #### 5 7021-8 ####[facility] LABIA [id number] [place] [address] Immature granulocytes/100 WBC (Bld) 1.0 % Normal [facility] Comment on above: Order Comment: Speci men Type: BLOOD SPECIMENOrdering Facility: [facility] Address: [address] [place] [address] Performed By: #### 5 7021-8 ####[facility] LABIA [id number] [place] [address] Lymphocytes (Bld) [#/Vol] 0.46 10*3/uL Low 1.00-4.00 [facility] Comment on above: Order Comment: Speci men Type: BLOOD SPECIMENOrdering Facility: [facility] Address: [address] [place] [address] Performed By: #### 5 7021-8 ####[facility] LABCLIA [id number] [place] [address] Lymphocytes/100 WBC (Bld) 7.6 % Normal [facility] Comment on above: Order Comment: Speci men Type: BLOOD SPECIMENOrdering Facility: [facility] Address: [address] [place] [address] Performed By: #### 5 7021-8 ####[facility] LABCLIA [id number] [place] [address] MCH (RBC) [Entitic mass] 29.5 pg Normal 26.0-34.0 [facility] Comment on above: Order Comment: Speci men Type: BLOOD SPECIMENOrdering Facility: [facility] Address: [address] [place] [address] Performed By: #### 5 7021-8 ####[facility] LABCLIA [id number] [place] [address] MCHC (RBC) [Mass/Vol] 33.2 g/dL Normal 30.5-36.0 [facility] Comment on above: Order Comment: Speci men Type: BLOOD SPECIMENOrdering Facility: [facility] Address: [address] [place] [address] Performed By: #### 5 7021-8 ####[facility] LABCLIA [id number] [place] [address] MCV (RBC) [Entitic vol] 88.9 fL Normal 80.0-100.0 [facility] Comment on above: Order Comment: Speci men Type: BLOOD SPECIMENOrdering Facility: [facility] Address: [address] [place] [address] Performed By: #### 5 7021-8 ####[facility] LABCLIA [id number] [place] [address] Monocytes (Bld) [#/Vol] 1.03 10*3/uL High <0.87 [facility] Comment on above: Order Comment: Speci men Type: BLOOD SPECIMENOrdering Facility: [facility] Address: [address] [place] [place] [address] Performed By: #### 5 7021-8 ####[facility] LABCLIA [id number] [place] [address] Monocytes/100 WBC (Bld) 17.0 % Normal [facility] Comment on above: Order Comment: Speci men Type: BLOOD SPECIMENOrdering Facility: [facility] Address: [address] [place] [place] [address] Performed By: #### 5 7021-8 ####[facility] LABCLIA [id number] [place] [address] Neutrophils (Bld) [#/Vol] 4.17 10*3/uL Normal 1.45-7.50 [facility] Comment on above: Order Comment: Speci men Type: BLOOD SPECIMENOrdering Facility: [facility] Address: [address] [place] [place] [address] Performed By: #### 5 7021-8 ####[facility] LABIA [id number] [place] [address] Neutrophils/100 WBC (Bld) 68.7 % Normal [facility] Comment on above: Order Comment: Speci men Type: BLOOD SPECIMENOrdering Facility: [facility] Address: [address] [place] [address] Performed By: #### 5 7021-8 ####[facility] LABCLIA [id number] [place] [address] Nucleated RBC (Bld) [#/Vol] 10*3/uL Normal <0.01 [facility] Comment on above: Order Comment: Speci men Type: BLOOD SPECIMENOrdering Facility: [facility] Address: [address] [place] [address] Performed By: #### 5 7021-8 ####[facility] LABCLIA [id number] [place] [address] Nucleated RBC/100 WBC (Bld) [Ratio] 0.0 /100 WBC Normal [facility] Comment on above: Order Comment: Speci men Type: BLOOD SPECIMENOrdering Facility: [facility] Address: [address] [place] [address] Performed By: #### 5 7021-8 ####[facility] LABCLIA [id number] [place] [address] Platelet mean volume (Bld) [Entitic vol] 10.3 fL Normal 9.0-12.7 [facility] Comment on above: Order Comment: Speci men Type: BLOOD SPECIMENOrdering Facility: [facility] Address: [address] [place] [address] Performed By: #### 5 7021-8 ####[facility] LABCLIA [id number] [place] [address] Platelets (Bld) [#/Vol] 143 10*3/uL Low 150-400 [facility] Comment on above: Order Comment: Speci men Type: BLOOD SPECIMENOrdering Facility: [facility] Address: [address] [place] [address] Performed By: #### 5 7021-8 ####[facility] LABCLIA [id number] [place] [address] RBC (Bld) [#/Vol] 4.68 10*6/uL Normal 4.20-6.00 [facility] Comment on above: Order Comment: Speci men Type: BLOOD SPECIMENOrdering Facility: [facility] Address: [address] [place] [address] Performed By: #### 5 7021-8 ####[facility] LABCLIA [id number] [place] [address] WBC (Bld) [#/Vol] 6.07 10*3/uL Normal 3.70-11.00 [facility] Comment on above: Order Comment: Speci men Type: BLOOD SPECIMENOrdering Facility: [facility] Address: [place] [address] Performed By: #### 5 7021-8 ####[facility] LABCLIA [id number] [place] [address] CNOVSPon 08-05-2023 CNOVSP Normal [facility] metabolic 2000 panelon 08-05-2023 Albumin [Mass/Vol] 4.2 g/dL 3.9 - 4.9 g/dL [facility] ALP [Catalytic activity/Vol] 198 U/L High 38 - 113 U/L [facility] ALT [Catalytic activity/Vol] 19 U/L 10 - 54 U/L [facility] Anion gap [Moles/Vol] 9 mmol/L 9 - 18 mmol/L [facility] AST [Catalytic activity/Vol] 18 U/L 14 - 40 U/L [facility] Bilirubin [Mass/Vol] 0.2 mg/dL 0.2 - 1 .3 mg/dL [facility] Calcium [Mass/Vol] 9.5 mg/dL 8.5 - 10. 2 mg/dL [facility] Chloride [Moles/Vol] 107 mmol/L High 97 - 10 5 mmol/L [facility] CO2 [Moles/Vol] 23 mmol/L 22 - 30 mmol/L [facility] Creatinine [Mass/Vol] 0.90 mg/dL 0.73 - 1.22 mg/dL [facility] Estimated Glomerular Filtration Rate 94 mL/min/1.73m >=60 mL/min/1.7 3m [facility] Glucose [Mass/Vol] 104 mg/dL High 74 - 99 mg/dL [facility] Potassium [Moles/Vol] 4.2 mmol/L 3.7 - 5.1 mmol/L [facility] Protein [Mass/Vol] 6.8 g/dL 6.3 - 8.0 g/dL [facility] Sodium [Moles/Vol] 139 mmol/L 136 - 144 mmol/L [facility] Urea nitrogen [Mass/Vol] 17 mg/dL 9 - 24 mg/dL [facility] Albumin [Mass/Vol] 4.2 g/dL Normal 3.9-4.9 [facility] Comment on above: Order Comment: Speci men Type: BLOOD SPECIMENOrdering Facility: [facility] Address: [address] [place] [address] Performed By: #### 2 4323-8 ####[facility] LABCLIA [id number] [place] [address] ALP [Catalytic activity/Vol] 198 U/L High 38-113 [facility] Comment on above: Order Comment: Speci men Type: BLOOD SPECIMENOrdering Facility: [facility] Address: [address] [place] [address] Performed By: #### 2 4323-8 ####[facility] LABCLIA [id number] [place] [address] ALT [Catalytic activity/Vol] 19 U/L Normal 10-54 [facility] Comment on above: Order Comment: Speci men Type: BLOOD SPECIMENOrdering Facility: [facility] Address: [address] [place] [address] Performed By: #### 2 4323-8 ####[facility] LABCLIA [id number] [place] [address] Anion gap [Moles/Vol] 9 mmol/L Normal 9-18 [facility] Comment on above: Order Comment: Speci men Type: BLOOD SPECIMENOrdering Facility: [facility] Address: [address] [place] [address] Performed By: #### 2 4323-8 ####[facility] LABCLIA [id number] [place] [address] AST [Catalytic activity/Vol] 18 U/L Normal 14-40 [facility] Comment on above: Order Comment: Speci men Type: BLOOD SPECIMENOrdering Facility: [facility] Address: [address] [place] [address] Performed By: #### 2 4323-8 ####[facility] LABCLIA [id number] [place] [address] Bilirubin [Mass/Vol] 0.2 mg/dL Normal 0.2-1.3 [facility] Comment on above: Order Comment: Speci men Type: BLOOD SPECIMENOrdering Facility: [facility] Address: [address] [place] [place] [address] Performed By: #### 2 4323-8 ####[facility] LABCLIA [id number] [place] [address] Calcium [Mass/Vol] 9.5 mg/dL Normal 8.5-10.2 [facility] Comment on above: Order Comment: Speci men Type: BLOOD SPECIMENOrdering Facility: [facility] Address: [address] [place] [address] Performed By: #### 2 4323-8 ####[facility] LABCLIA [id number] [place] [address] Chloride [Moles/Vol] 107 mmol/L High 97-105 [facility] Comment on above: Order Comment: Speci men Type: BLOOD SPECIMENOrdering Facility: [facility] Address: [address] [place] [address] Performed By: #### 2 4323-8 ####[facility] LABCLIA [id number] [place] [address] CO2 [Moles/Vol] 23 mmol/L Normal 22-30 [facility] Comment on above: Order Comment: Speci men Type: BLOOD SPECIMENOrdering Facility: [facility] Address: [address] [place] [place] [address] Performed By: #### 2 4323-8 ####[facility] LABCLIA [id number] [place] [address] Creatinine [Mass/Vol] 0.90 mg/dL Normal 0.73-1.22 [facility] Comment on above: Order Comment: Speci men Type: BLOOD SPECIMENOrdering Facility: [facility] Address: [address] [place] [address] Performed By: #### 2 4323-8 ####[facility] LABCLIA [id number] [place] [address] Creatinine and Glomerular filtration rate.predicted panel (S/P/Bld) 94 mL/min/1.73m??? Normal >=60 [facility] Comment on above: Order Comment: Speci razia Type: BLOOD SPECIMENOrdering Facility: [facility] Address: [address] [place] [address] Result Comment: Carol mated Glomerular Filtration Rate [...] actual GFR. Performed By: #### 2 4323-8 ####[facility] LABIA [id number] [place] [address] Glucose [Mass/Vol] 104 mg/dL High 74-99 [facility] Comment on above: Order Comment: Speci razia Type: BLOOD SPECIMENOrdering Facility: [facility] Address: [address] [place] [address] Result Comment: The [place] [employer] (ADA) provides guidance for cutoff [...] Standards of Medical Care in Diabetes 2016, [place] [employer]. Diabetes Care. 2016.39(Suppl 1). Performed By: #### 2 4323-8 ####[facility] LABCLIA [id number] [place] [address] Potassium [Moles/Vol] 4.2 mmol/L Normal 3.7-5.1 [facility] Comment on above: Order Comment: Speci men Type: BLOOD SPECIMENOrdering Facility: [facility] Address: [address] [place] [address] Performed By: #### 2 4323-8 ####[facility] LABCLIA [id number] [place] [address] Protein [Mass/Vol] 6.8 g/dL Normal 6.3-8.0 [facility] Comment on above: Order Comment: Speci men Type: BLOOD SPECIMENOrdering Facility: [facility] Address: [address] [place] [address] Performed By: #### 2 4323-8 ####[facility] LABCLIA [id number] [place] [address] Sodium [Moles/Vol] 139 mmol/L Normal 136-144 [facility] Comment on above: Order Comment: Speci men Type: BLOOD SPECIMENOrdering Facility: [facility] Address: [address] [place] [address] Performed By: #### 2 4323-8 ####[facility] LABCLIA [id number] [place] [address] Urea nitrogen [Mass/Vol] 17 mg/dL Normal 9-24 [facility] Comment on above: Order Comment: Speci men Type: BLOOD SPECIMENOrdering Facility: [facility] Address: [address] [place] [address] Performed By: #### 2 4323-8 ####[facility] LABCLIA [id number] [place] [address] CNPNon 08-04-2023 CNPN Normal [facility] Basic metabolic 2000 panelon 07-22-2023 Anion gap [Moles/Vol] 13 mmol/L 9 - 18 mmol/L [facility] Calcium [Mass/Vol] 9.7 mg/dL 8.5 - 10. 2 mg/dL [facility] Chloride [Moles/Vol] 105 mmol/L 97 - 10 5 mmol/L [facility] CO2 [Moles/Vol] 23 mmol/L 22 - 30 mmol/L [facility] Creatinine [Mass/Vol] 0.96 mg/dL 0.73 - 1.22 mg/dL [facility] Estimated Glomerular Filtration Rate 87 mL/min/1.73m >=60 mL/min/1.7 3m [facility] Glucose [Mass/Vol] 101 mg/dL High 74 - 99 mg/dL [facility] Potassium [Moles/Vol] 4.7 mmol/L 3.7 - 5.1 mmol/L [facility] Sodium [Moles/Vol] 141 mmol/L 136 - 144 mmol/L [facility] Urea nitrogen [Mass/Vol] 14 mg/dL 9 - 24 mg/dL [facility] Anion gap [Moles/Vol] 13 mmol/L Normal 9-18 [facility] Comment on above: Order Comment: Speci men Type: BLOOD SPECIMENOrdering Facility: [facility] Address: [address] [place] [address] Performed By: #### 2 432-2, 3083-11 ####[facility] LABCLIA [id number] [place] [address] Calcium [Mass/Vol] 9.7 mg/dL Normal 8.5-10.2 [facility] Comment on above: Order Comment: Speci men Type: BLOOD SPECIMENOrdering Facility: [facility] Address: [address] [place] [address] Performed By: #### 2 432-2, 3083-11 ####[facility] LABCLIA [id number] [place] [address] Chloride [Moles/Vol] 105 mmol/L Normal 97-105 [facility] Comment on above: Order Comment: Speci men Type: BLOOD SPECIMENOrdering Facility: [facility] Address: [address] [place] [address] Performed By: #### 2 4321-2, 3083- ####[facility] LABCLIA [id number] [place] [address] CO2 [Moles/Vol] 23 mmol/L Normal 22-30 [facility] Comment on above: Order Comment: Speci men Type: BLOOD SPECIMENOrdering Facility: [facility] Address: [address] [place] [address] Performed By: #### 2 4321-2, 308-1 ####[facility] LABIA [id number] [place] [address] Creatinine [Mass/Vol] 0.96 mg/dL Normal 0.73-1.22 [facility] Comment on above: Order Comment: Speci men Type: BLOOD SPECIMENOrdering Facility: [facility] Address: [address] [place] [address] Performed By: #### 2 4321-2, 3083- ####[facility] [id number] [place] [address] Creatinine and Glomerular filtration rate.predicted panel (S/P/Bld) 87 mL/min/1.73m??? Normal >=60 [facility] Comment on above: Order Comment: Speci men Type: BLOOD SPECIMENOrdering Facility: [facility] Address: [address] [place] [address] Result Comment: Carol mated Glomerular Filtration Rate [...] GFR. Performed By: #### 2 4321-2, 3083-1 ####[facility] [id number] [place] [address] Glucose [Mass/Vol] 101 mg/dL High 74-99 [facility] Comment on above: Order Comment: Speci men Type: BLOOD SPECIMENOrdering Facility: [facility] Address: [address] [address] Result Comment: The [place] [employer] (ADA) provides guidance for cutoff [...] Standards of Medical Care in Diabetes 2016, [place] [employer]. Diabetes Care. 2016.39(Suppl 1). Performed By: #### 2 4321-2, 3083- ####[facility] [id number] [place] [address] Potassium [Moles/Vol] 4.7 mmol/L Normal 3.7-5.1 [facility] [facility] Comment on above: Order Comment: Speci men Type: BLOOD SPECIMENOrdering Facility: [facility] Address: [address] [address] Performed By: #### 2 4320-2, 3083-11 ####[facility] LABCLIA [id number] [place] [address] Sodium [Moles/Vol] 141 mmol/L Normal 136-144 [facility] Comment on above: Order Comment: Speci men Type: BLOOD SPECIMENOrdering Facility: [facility] Address: [address] [address] Performed By: #### 2 432-2, 3083- ####[facility] LABCLIA [id number] [place] [address] Urea nitrogen [Mass/Vol] 14 mg/dL Normal 9-24 [facility] Comment on above: Order Comment: Speci men Type: BLOOD SPECIMENOrdering Facility: [facility] Address: [address] [address] Performed By: #### 2 4321-2, 3084-1 ####[facility] LABCLIA [id number] [place] [address] CBC W Auto Differential pane l (Bld)on 07-22-2023 Basophils (Bld) [#/Vol] 0.07 10*3/uL <0.11 k/uL [facility] Basophils/100 WBC (Bld) 1.2 % [facility] Differential cell count method Nom (Bld) Auto [facility] Eosinophils (Bld) [#/Vol] 0.17 10*3/uL <0.46 k/uL [facility] Eosinophils/100 WBC (Bld) 3.0 % [facility] Erythrocyte distribution width (RBC) [Ratio] 16.1 % High 11.5 - 15.0 % [facility] Hematocrit (Bld) [Volume fraction] 46.9 % 39.0 - 51.0 % [facility] Hemoglobin (Bld) [Mass/Vol] 15.2 g/dL 13.0 - 17.0 g/dL [facility] Immature granulocytes (Bld) [#/Vol] 0.09 10*3/uL <0.10 k/uL [facility] Immature granulocytes/100 WBC (Bld) 1.6 % [facility] Lymphocytes (Bld) [#/Vol] 0.26 10*3/uL Low 1.00 - 4.00 k/uL [facility] Lymphocytes/100 WBC (Bld) 4.6 % [facility] MCH (RBC) [Entitic mass] 29.0 pg 26.0 - 34.0 pg [facility] MCHC (RBC) [Mass/Vol] 32.4 g/dL 30.5 - 36.0 g/dL [facility] MCV (RBC) [Entitic vol] 89.5 fL 80.0 - 100.0 fL [facility] Monocytes (Bld) [#/Vol] 1.09 10*3/uL High <0.87 k/uL [facility] Monocytes/100 WBC (Bld) 19.3 % [facility] Neutrophils (Bld) [#/Vol] 3.97 10*3/uL 1.45 - 7.50 k/uL [facility] Neutrophils/100 WBC (Bld) 70.3 % [facility] Nucleated RBC (Bld) [#/Vol] <0.01 k/uL [facility] Nucleated RBC/100 WBC (Bld) [Ratio] 0.0 /100 WBC [facility] Platelet mean volume (Bld) [Entitic vol] 10.0 fL 9.0 - 12.7 fL [facility] Platelets (Bld) [#/Vol] 242 10*3/uL 150 - 400 k/uL [facility] RBC (Bld) [#/Vol] 5.24 10*6/uL 4.20 - 6.00 m/uL [facility] WBC (Bld) [#/Vol] 5.65 10*3/uL 3.70 - 11.00 k/uL [facility] Basophils (Bld) [#/Vol] 0.07 10*3/uL Normal <0.11 [facility] Comment on above: Order Comment: Speci men Type: BLOOD SPECIMENOrdering Facility: [facility] Address: [address] [place] [address] Performed By: #### 5 7021-8 ####[facility] LABCLIA [id number] [place] [address] Basophils/100 WBC (Bld) 1.2 % Normal [facility] Comment on above: Order Comment: Speci men Type: BLOOD SPECIMENOrdering Facility: [facility] Address: [address] [place] [address] Performed By: #### 5 7021-8 ####[facility] LABCLIA [id number] [place] [address] Differential cell count method Nom (Bld) Auto Normal [facility] Comment on above: Order Comment: Speci men Type: BLOOD SPECIMENOrdering Facility: [facility] Address: [address] [place] [address] Performed By: #### 5 7021-8 ####[facility] LABCLIA [id number] [place] [address] Eosinophils (Bld) [#/Vol] 0.17 10*3/uL Normal <0.46 [facility] Comment on above: Order Comment: Speci men Type: BLOOD SPECIMENOrdering Facility: [facility] Address: [address] [place] [address] Performed By: #### 5 7021-8 ####[facility] LABCLIA [id number] [place] [address] Eosinophils/100 WBC (Bld) 3.0 % Normal [facility] Comment on above: Order Comment: Speci men Type: BLOOD SPECIMENOrdering Facility: [facility] Address: [address] [place] [address] Performed By: #### 5 7021-8 ####[facility] LABCLIA [id number] [place] [address] Erythrocyte distribution width (RBC) [Ratio] 16.1 % High 11.5-15.0 [facility] Comment on above: Order Comment: Speci men Type: BLOOD SPECIMENOrdering Facility: [facility] Address: [address] [place] [address] Performed By: #### 5 7021-8 ####[facility] LABCLIA [id number] [place] [address] Hematocrit (Bld) [Volume fraction] 46.9 % Normal 39.0-51.0 [facility] Comment on above: Order Comment: Speci men Type: BLOOD SPECIMENOrdering Facility: [facility] Address: [address] [place] [address] Performed By: #### 5 7021-8 ####[facility] LABCLIA [id number] [place] [address] Hemoglobin (Bld) [Mass/Vol] 15.2 g/dL Normal 13.0-17.0 [facility] Comment on above: Order Comment: Speci men Type: BLOOD SPECIMENOrdering Facility: [facility] Address: [address] [place] [address] Performed By: #### 5 7021-8 ####[facility] LABCLIA [id number] [place] [address] Immature granulocytes (Bld) [#/Vol] 0.09 10*3/uL Normal <0.10 [facility] Comment on above: Order Comment: Speci men Type: BLOOD SPECIMENOrdering Facility: [facility] Address: [address] [place] [address] Performed By: #### 5 7021-8 ####[facility] LABCLIA [id number] [place] [address] Immature granulocytes/100 WBC (Bld) 1.6 % Normal [facility] Comment on above: Order Comment: Speci men Type: BLOOD SPECIMENOrdering Facility: [facility] Address: [address] [place] [address] Performed By: #### 5 7021-8 ####[facility] LABIA [id number] [place] [address] Lymphocytes (Bld) [#/Vol] 0.26 10*3/uL Low 1.00-4.00 [facility] Comment on above: Order Comment: Speci men Type: BLOOD SPECIMENOrdering Facility: [facility] Address: [address] [place] [address] Performed By: #### 5 7021-8 ####[facility] LABCLIA [id number] [place] [address] Lymphocytes/100 WBC (Bld) 4.6 % Normal [facility] Comment on above: Order Comment: Speci men Type: BLOOD SPECIMENOrdering Facility: [facility] Address: [address] [place] [address] Performed By: #### 5 7021-8 ####[facility] LABIA [id number] [place] [address] MCH (RBC) [Entitic mass] 29.0 pg Normal 26.0-34.0 [facility] Comment on above: Order Comment: Speci men Type: BLOOD SPECIMENOrdering Facility: [facility] Address: [address] [address] Performed By: #### 5 7021-8 ####[facility] LABCLIA [id number] [place] [address] MCHC (RBC) [Mass/Vol] 32.4 g/dL Normal 30.5-36.0 [facility] Comment on above: Order Comment: Speci men Type: BLOOD SPECIMENOrdering Facility: [facility] Address: [address] [place] [address] Performed By: #### 5 7021-8 ####[facility] LABIA [id number] [place] [address] MCV (RBC) [Entitic vol] 89.5 fL Normal 80.0-100.0 [facility] Comment on above: Order Comment: Speci men Type: BLOOD SPECIMENOrdering Facility: [facility] Address: [address] [place] [address] Performed By: #### 5 7021-8 ####[facility] LABIA [id number] [place] [address] Monocytes (Bld) [#/Vol] 1.09 10*3/uL High <0.87 [facility] Comment on above: Order Comment: Speci men Type: BLOOD SPECIMENOrdering Facility: [facility] Address: [address] [place] [address] Performed By: #### 5 7021-8 ####[facility] LABCLIA [id number] [place] [address] Monocytes/100 WBC (Bld) 19.3 % Normal [facility] Comment on above: Order Comment: Speci men Type: BLOOD SPECIMENOrdering Facility: [facility] Address: [address] [place] [address] Performed By: #### 5 7021-8 ####[facility] LABCLIA [id number] [place] [address] Neutrophils (Bld) [#/Vol] 3.97 10*3/uL Normal 1.45-7.50 [facility] Comment on above: Order Comment: Speci men Type: BLOOD SPECIMENOrdering Facility: [facility] Address: [address] [place] [address] Performed By: #### 5 7021-8 ####[facility] LABCLIA [id number] [place] [address] Neutrophils/100 WBC (Bld) 70.3 % Normal [facility] Comment on above: Order Comment: Speci men Type: BLOOD SPECIMENOrdering Facility: [facility] Address: [address] [place] [address] Performed By: #### 5 7021-8 ####[facility] LABCLIA [id number] [place] [address] Nucleated RBC (Bld) [#/Vol] 10*3/uL Normal <0.01 [facility] Comment on above: Order Comment: Speci men Type: BLOOD SPECIMENOrdering Facility: [facility] Address: [address] [place] [address] Performed By: #### 5 7021-8 ####[facility] LABCLIA [id number] [place] [address] Nucleated RBC/100 WBC (Bld) [Ratio] 0.0 /100 WBC Normal [facility] Comment on above: Order Comment: Speci men Type: BLOOD SPECIMENOrdering Facility: [facility] Address: [address] [place] [address] Performed By: #### 5 7021-8 ####[facility] LABCLIA [id number] [place] [address] Platelet mean volume (Bld) [Entitic vol] 10.0 fL Normal 9.0-12.7 [facility] Comment on above: Order Comment: Speci men Type: BLOOD SPECIMENOrdering Facility: [facility] Address: [address] [place] [address] Performed By: #### 5 7021-8 ####[facility] LABCLIA [id number] [place] [address] Platelets (Bld) [#/Vol] 242 10*3/uL Normal 150-400 [facility] Comment on above: Order Comment: Speci men Type: BLOOD SPECIMENOrdering Facility: [facility] Address: [address] [place] [address] Performed By: #### 5 7021-8 ####[facility] LABCLIA [id number] [place] [address] RBC (Bld) [#/Vol] 5.24 10*6/uL Normal 4.20-6.00 [facility] Comment on above: Order Comment: Speci men Type: BLOOD SPECIMENOrdering Facility: [facility] Address: [address] [place] [address] Performed By: #### 5 7021-8 ####[facility] LABIA [id number] [place] [address] WBC (Bld) [#/Vol] 5.65 10*3/uL Normal 3.70-11.00 [facility] Comment on above: Order Comment: Speci men Type: BLOOD SPECIMENOrdering Facility: [facility] Address: [address] [place] [address] Performed By: #### 5 7021-8 ####[facility] LABIA [id number] [place] [address] URIC ACID BLOODon 07-22-2023 Urate [Mass/Vol] 6.1 mg/dL 4.0 - 8.1 mg/dL [facility] Urate SerPl-mCncon Urate [Mass/Vol] 6.1 mg/dL Normal 4.0-8.1 [facility] Comment on above: Order Comment: Speci men Type: BLOOD SPECIMENOrdering Facility: [facility] Address: [address] [place], [place] [id number] Performed By: #### 2 4321-2, 3084-1 ####[facility] LABCLIA [id number] [place] [address] CBC W Auto Differential pane l (Bld)on 07-08-2023 Basophils (Bld) [#/Vol] 0.06 10*3/uL <0.11 k/uL [facility] Basophils/100 WBC (Bld) 0.8 % [facility] Differential cell count method Nom (Bld) Auto [facility] Eosinophils (Bld) [#/Vol] 0.24 10*3/uL <0.46 k/uL [facility] Eosinophils/100 WBC (Bld) 3.1 % [facility] Erythrocyte distribution width (RBC) [Ratio] 15.9 % High 11.5 - 15.0 % [facility] Hematocrit (Bld) [Volume fraction] 41.1 % 39.0 - 51.0 % [facility] Hemoglobin (Bld) [Mass/Vol] 13.3 g/dL 13.0 - 17.0 g/dL [facility] Immature granulocytes (Bld) [#/Vol] 0.03 10*3/uL <0.10 k/uL [facility] Immature granulocytes/100 WBC (Bld) 0.4 % [facility] Lymphocytes (Bld) [#/Vol] 0.25 10*3/uL Low 1.00 - 4.00 k/uL [facility] Lymphocytes/100 WBC (Bld) 3.2 % [facility] MCH (RBC) [Entitic mass] 28.8 pg 26.0 - 34.0 pg [facility] MCHC (RBC) [Mass/Vol] 32.4 g/dL 30.5 - 36.0 g/dL [facility] MCV (RBC) [Entitic vol] 89.0 fL 80.0 - 100.0 fL [facility] Monocytes (Bld) [#/Vol] 0.52 10*3/uL <0.87 k/uL [facility] Monocytes/100 WBC (Bld) 6.6 % [facility] Neutrophils (Bld) [#/Vol] 6.73 10*3/uL 1.45 - 7.50 k/uL [facility] Neutrophils/100 WBC (Bld) 85.9 % [facility] Nucleated RBC (Bld) [#/Vol] <0.01 k/uL [facility] Nucleated RBC/100 WBC (Bld) [Ratio] 0.0 /100 WBC [facility] Platelet mean volume (Bld) [Entitic vol] 10.1 fL 9.0 - 12.7 fL [facility] Platelets (Bld) [#/Vol] 146 10*3/uL Low 150 - 400 k/uL [facility] RBC (Bld) [#/Vol] 4.62 10*6/uL 4.20 - 6.00 m/uL [facility] WBC (Bld) [#/Vol] 7.83 10*3/uL 3.70 - 11.00 k/uL [facility] Comprehensive metabolic 2000 panelon 07-08-2023 Albumin [Mass/Vol] 3.9 g/dL 3.9 - 4.9 g/dL [facility] ALP [Catalytic activity/Vol] 228 U/L High 38 - 113 U/L [facility] ALT [Catalytic activity/Vol] 19 U/L 10 - 54 U/L [facility] Anion gap [Moles/Vol] 11 mmol/L 9 - 18 mmol/L [facility] AST [Catalytic activity/Vol] 17 U/L 14 - 40 U/L [facility] Bilirubin [Mass/Vol] 0.3 mg/dL 0.2 - 1 .3 mg/dL [facility] Calcium [Mass/Vol] 9.3 mg/dL 8.5 - 10. 2 mg/dL [facility] Chloride [Moles/Vol] 102 mmol/L 97 - 10 5 mmol/L [facility] CO2 [Moles/Vol] 22 mmol/L 22 - 30 mmol/L [facility] Creatinine [Mass/Vol] 0.90 mg/dL 0.73 - 1.22 mg/dL [facility] Estimated Glomerular Filtration Rate 94 mL/min/1.73m >=60 mL/min/1.7 3m [facility] Glucose [Mass/Vol] 119 mg/dL High 74 - 99 mg/dL [facility] Potassium [Moles/Vol] 4.2 mmol/L 3.7 - 5.1 mmol/L [facility] Protein [Mass/Vol] 6.9 g/dL 6.3 - 8.0 g/dL [facility] Sodium [Moles/Vol] 135 mmol/L Low 136 - 144 mmol/L [facility] Urea nitrogen [Mass/Vol] 15 mg/dL 9 - 24 mg/dL [facility] Laboratory - Chemistry and C hemistry - challengeon 07-08-2023 Urate [Mass/Vol] 5.7 mg/dL 4.0 - 8.1 mg/dL [facility] Basic metabolic 2000 panelon 06-19-2023 Anion gap [Moles/Vol] 9 mmol/L 9 - 18 mmol/L [facility] Calcium [Mass/Vol] 9.0 mg/dL 8.5 - 10. 2 mg/dL [facility] Chloride [Moles/Vol] 102 mmol/L 97 - 10 5 mmol/L [facility] CO2 [Moles/Vol] 25 mmol/L 22 - 30 mmol/L [facility] Creatinine [Mass/Vol] 0.98 mg/dL 0.73 - 1.22 mg/dL [facility] Estimated Glomerular Filtration Rate 85 mL/min/1.73m >=60 mL/min/1.7 3m [facility] Glucose [Mass/Vol] 95 mg/dL 74 - 99 mg/dL [facility] Potassium [Moles/Vol] 4.1 mmol/L 3.7 - 5.1 mmol/L [facility] Sodium [Moles/Vol] 136 mmol/L 136 - 144 mmol/L [facility] Urea nitrogen [Mass/Vol] 19 mg/dL 9 - 24 mg/dL [facility] CBC W Auto Differential pane l (Bld)on 06-19-2023 Basophils (Bld) [#/Vol] 0.07 10*3/uL <0.11 k/uL [facility] Basophils/100 WBC (Bld) 0.7 % [facility] Differential cell count method Nom (Bld) Auto [facility] Eosinophils (Bld) [#/Vol] 0.39 10*3/uL <0.46 k/uL [facility] Eosinophils/100 WBC (Bld) 4.1 % [facility] Erythrocyte distribution width (RBC) [Ratio] 16.4 % High 11.5 - 15.0 % [facility] Hematocrit (Bld) [Volume fraction] 40.4 % 39.0 - 51.0 % [facility] Hemoglobin (Bld) [Mass/Vol] 13.2 g/dL 13.0 - 17.0 g/dL [facility] Immature granulocytes (Bld) [#/Vol] 0.09 10*3/uL <0.10 k/uL [facility] Immature granulocytes/100 WBC (Bld) 0.9 % [facility] Lymphocytes (Bld) [#/Vol] 0.15 10*3/uL Low 1.00 - 4.00 k/uL [facility] Lymphocytes/100 WBC (Bld) 1.6 % [facility] MCH (RBC) [Entitic mass] 29.8 pg 26.0 - 34.0 pg [facility] MCHC (RBC) [Mass/Vol] 32.7 g/dL 30.5 - 36.0 g/dL [facility] MCV (RBC) [Entitic vol] 91.2 fL 80.0 - 100.0 fL [facility] Monocytes (Bld) [#/Vol] 1.13 10*3/uL High <0.87 k/uL [facility] Monocytes/100 WBC (Bld) 11.9 % [facility] Neutrophils (Bld) [#/Vol] 7.70 10*3/uL High 1.45 - 7.50 k/uL [facility] Neutrophils/100 WBC (Bld) 80.8 % [facility] Nucleated RBC (Bld) [#/Vol] <0.01 k/uL [facility] Nucleated RBC/100 WBC (Bld) [Ratio] 0.0 /100 WBC [facility] Platelet mean volume (Bld) [Entitic vol] 9.5 fL 9.0 - 12.7 fL [facility] Platelets (Bld) [#/Vol] 217 10*3/uL 150 - 400 k/uL [facility] RBC (Bld) [#/Vol] 4.43 10*6/uL 4.20 - 6.00 m/uL [facility] WBC (Bld) [#/Vol] 9.53 10*3/uL 3.70 - 11.00 k/uL [facility] URIC ACID BLOODon 06-19-2023 Urate [Mass/Vol] 4.9 mg/dL 4.0 - 8.1 mg/dL [facility] CBC W Auto Differential pane l (Bld)on 06-05-2023 Basophils (Bld) [#/Vol] 0.04 10*3/uL <0.11 k/uL [facility] Basophils/100 WBC (Bld) 0.3 % [facility] Differential cell count method Nom (Bld) Auto [facility] Eosinophils (Bld) [#/Vol] <0.46 k/uL [facility] Eosinophils/100 WBC (Bld) 0.0 % [facility] Erythrocyte distribution width (RBC) [Ratio] 14.4 % 11.5 - 15.0 % [facility] Hematocrit (Bld) [Volume fraction] 37.1 % Low 39.0 - 51.0 % [facility] Hemoglobin (Bld) [Mass/Vol] 11.8 g/dL Low 13.0 - 17.0 g/dL [facility] Immature granulocytes (Bld) [#/Vol] 0.12 10*3/uL High <0.10 k/uL [facility] Immature granulocytes/100 WBC (Bld) 0.9 % [facility] Lymphocytes (Bld) [#/Vol] 0.56 10*3/uL Low 1.00 - 4.00 k/uL [facility] Lymphocytes/100 WBC (Bld) 4.0 % [facility] MCH (RBC) [Entitic mass] 28.4 pg 26.0 - 34.0 pg [facility] MCHC (RBC) [Mass/Vol] 31.8 g/dL 30.5 - 36.0 g/dL [facility] MCV (RBC) [Entitic vol] 89.4 fL 80.0 - 100.0 fL [facility] Monocytes (Bld) [#/Vol] 0.65 10*3/uL <0.87 k/uL [facility] Monocytes/100 WBC (Bld) 4.6 % [facility] Neutrophils (Bld) [#/Vol] 12.66 10*3/uL High 1.45 - 7.50 k/uL [facility] Neutrophils/100 WBC (Bld) 90.2 % [facility] Nucleated RBC (Bld) [#/Vol] <0.01 k/uL [facility] Nucleated RBC/100 WBC (Bld) [Ratio] 0.0 /100 WBC [facility] Platelet mean volume (Bld) [Entitic vol] 10.1 fL 9.0 - 12.7 fL [facility] Platelets (Bld) [#/Vol] 334 10*3/uL 150 - 400 k/uL [facility] RBC (Bld) [#/Vol] 4.15 10*6/uL Low 4.20 - 6.00 m/uL [facility] WBC (Bld) [#/Vol] 14.03 10*3/uL High 3.70 - 11.00 k/uL [facility] Comprehensive metabolic 2000 panelon 06-05-2023 Albumin [Mass/Vol] 3.7 g/dL Low 3.9 - 4.9 g/dL [facility] ALP [Catalytic activity/Vol] 235 U/L High 38 - 113 U/L [facility] ALT [Catalytic activity/Vol] 26 U/L 10 - 54 U/L [facility] Anion gap [Moles/Vol] 10 mmol/L 9 - 18 mmol/L [facility] AST [Catalytic activity/Vol] 27 U/L 14 - 40 U/L [facility] Bilirubin [Mass/Vol] 0.2 mg/dL 0.2 - 1 .3 mg/dL [facility] Calcium [Mass/Vol] 9.4 mg/dL 8.5 - 10. 2 mg/dL [facility] Chloride [Moles/Vol] 102 mmol/L 97 - 10 5 mmol/L [facility] CO2 [Moles/Vol] 25 mmol/L 22 - 30 mmol/L [facility] Creatinine [Mass/Vol] 0.96 mg/dL 0.73 - 1.22 mg/dL [facility] Estimated Glomerular Filtration Rate 87 mL/min/1.73m >=60 mL/min/1.7 3m [facility] Glucose [Mass/Vol] 120 mg/dL High 74 - 99 mg/dL [facility] Potassium [Moles/Vol] 4.3 mmol/L 3.7 - 5.1 mmol/L [facility] Protein [Mass/Vol] 7.7 g/dL 6.3 - 8.0 g/dL [facility] Sodium [Moles/Vol] 137 mmol/L 136 - 144 mmol/L [facility] Urea nitrogen [Mass/Vol] 26 mg/dL High 9 - 24 mg/dL [facility] Laboratory - Chemistry and C hemistry - challengeon 06-05-2023 Urate [Mass/Vol] 8.6 mg/dL High 4.0 - 8.1 mg/dL [facility] ESR Westergren method (Bld) [Velocity]on 05-14-2023 ESR (Bld) [Velocity] 40 mm/h High 0 - 15 mm/hr [facility] CBC W Auto Differential pane l (Bld)on 05-13-2023 Basophils (Bld) [#/Vol] 0.08 10*3/uL <0.11 k/uL [facility] [facility] Basophils/100 WBC (Bld) 0.8 % [facility] Differential cell count method Nom (Bld) Auto [facility] Eosinophils (Bld) [#/Vol] 0.27 10*3/uL <0.46 k/uL [facility] Eosinophils/100 WBC (Bld) 2.8 % [facility] Erythrocyte distribution width (RBC) [Ratio] 14.1 % 11.5 - 15.0 % [facility] Hematocrit (Bld) [Volume fraction] 42.3 % 39.0 - 51.0 % [facility] Hemoglobin (Bld) [Mass/Vol] 13.4 g/dL 13.0 - 17.0 g/dL [facility] Immature granulocytes (Bld) [#/Vol] 0.05 10*3/uL <0.10 k/uL [facility] Immature granulocytes/100 WBC (Bld) 0.5 % [facility] Lymphocytes (Bld) [#/Vol] 0.69 10*3/uL Low 1.00 - 4.00 k/uL [facility] Lymphocytes/100 WBC (Bld) 7.1 % [facility] MCH (RBC) [Entitic mass] 29.1 pg 26.0 - 34.0 pg [facility] MCHC (RBC) [Mass/Vol] 31.7 g/dL 30.5 - 36.0 g/dL [facility] MCV (RBC) [Entitic vol] 92.0 fL 80.0 - 100.0 fL [facility] Monocytes (Bld) [#/Vol] 1.11 10*3/uL High <0.87 k/uL [facility] Monocytes/100 WBC (Bld) 11.5 % [facility] Neutrophils (Bld) [#/Vol] 7.47 10*3/uL 1.45 - 7.50 k/uL [facility] Neutrophils/100 WBC (Bld) 77.3 % [facility] Nucleated RBC (Bld) [#/Vol] <0.01 k/uL [facility] Nucleated RBC/100 WBC (Bld) [Ratio] 0.0 /100 WBC [facility] Platelet mean volume (Bld) [Entitic vol] 9.7 fL 9.0 - 12.7 fL [facility] Platelets (Bld) [#/Vol] 306 10*3/uL 150 - 400 k/uL [facility] RBC (Bld) [#/Vol] 4.60 10*6/uL 4.20 - 6.00 m/uL [facility] WBC (Bld) [#/Vol] 9.67 10*3/uL 3.70 - 11.00 k/uL [facility] Comprehensive metabolic 2000 panelon 05-13-2023 Albumin [Mass/Vol] 3.9 g/dL 3.9 - 4.9 g/dL [facility] ALP [Catalytic activity/Vol] 244 U/L High 38 - 113 U/L [facility] ALT [Catalytic activity/Vol] 19 U/L 10 - 54 U/L [facility] Anion gap [Moles/Vol] 12 mmol/L 9 - 18 mmol/L [facility] AST [Catalytic activity/Vol] 22 U/L 14 - 40 U/L [facility] Bilirubin [Mass/Vol] 0.4 mg/dL 0.2 - 1 .3 mg/dL [facility] Calcium [Mass/Vol] 9.5 mg/dL 8.5 - 10. 2 mg/dL [facility] Chloride [Moles/Vol] 103 mmol/L 97 - 10 5 mmol/L [facility] CO2 [Moles/Vol] 24 mmol/L 22 - 30 mmol/L [facility] Creatinine [Mass/Vol] 0.89 mg/dL 0.73 - 1.22 mg/dL [facility] Estimated Glomerular Filtration Rate 95 mL/min/1.73m >=60 mL/min/1.7 3m [facility] Glucose [Mass/Vol] 96 mg/dL 74 - 99 mg/dL [facility] Potassium [Moles/Vol] 4.4 mmol/L 3.7 - 5.1 mmol/L [facility] Protein [Mass/Vol] 7.9 g/dL 6.3 - 8.0 g/dL [facility] Sodium [Moles/Vol] 139 mmol/L 136 - 144 mmol/L [facility] Urea nitrogen [Mass/Vol] 19 mg/dL 9 - 24 mg/dL [facility] LD LACTATE DEHYDROon 05-13- 023 LDH [Catalytic activity/Vol] 420 U/L High 135 - 225 U/L [facility] CBC with Auto Differentialon 04-02-2023 Basophils (Bld) [#/Vol] 0.08 10*3/uL [facility] Basophils/100 WBC (Bld) 1 % 0 - 2 % [facility] Eosinophils (Bld) [#/Vol] 0.23 10*3/uL [facility] Eosinophils/100 WBC (Bld) 2 % 1 - 4 % [facility] Erythrocyte distribution width (RBC) [Ratio] 13.5 % 11.8 - 14.4 % [facility] Hematocrit (Bld) [Volume fraction] 42.8 % 40.7 - 50.3 % [facility] Hemoglobin (Bld) [Mass/Vol] 14.3 g/dL 13.0 - 17.0 g/dL [facility] Immature granulocytes (Bld) [#/Vol] 0.04 10*3/uL [facility] Immature granulocytes/100 WBC (Bld) 0 % 0 [facility] Interpretation and review of laboratory results Abnormal [facility] Lymphocytes/100 WBC (Bld) 6 % Low 24 - 43 % [facility] Lymphocytes/100 WBC (Bld) 0.65 % Low [facility] MCH (RBC) [Entitic mass] 30.6 pg 25.2 - 33.5 pg [facility] MCHC (RBC) [Mass/Vol] 33.4 g/dL 28.4 - 34.8 g/dL [facility] MCV (RBC) [Entitic vol] 91.5 fL 82.6 - 102.9 fL [facility] Monocytes/100 WBC (Bld) 12 % 3 - 12 % [facility] Monocytes/100 WBC (Bld) 1.32 % High [facility] Neutrophils/100 WBC (Bld) 79 % High 36 - 65 % [facility] NRBC Automated 0.0 0.0 per 100 WBC [facility] Platelet mean volume (Bld) [Entitic vol] 10.2 fL 8.1 - 13.5 fL [facility] Platelets (Bld) [#/Vol] 195 10*3/uL [facility] RBC (Bld) [#/Vol] 4.68 10*6/uL 4.21 - 5.77 m/uL [facility] Segmented neutrophils/100 WBC (Bld) 8.84 % High [facility] WBC other (Bld) [#/Vol] 11.2 [facility] CBC with Diffon 04-02-2023 Abs. Basophil 0.08 k/uL Normal 0.00-0.20 [facility] Comment on above: Performed By: #### C P, CDP #### [address] [place] [address] Branch Mechanic: Rasta Mohr MD Abs.Imm.Granulocyte 0.04 k/uL Normal 0.00-0.30 [facility] Comment on above: Performed By: #### C P, CDP #### [facility] [address] [place] [address] [place] [address] Branch Mechanic: Rasta Mohr MD Abs.Neutrophil (Seg) 8.84 k/uL High 1.50-8.10 [facility] Comment on above: Performed By: #### C P, CDP #### [address] [place] [address] Branch Mechanic: Rasta Mohr MD Basophils/100 WBC (Bld) 1 % Normal 0-2 [facility] Comment on above: Performed By: #### C P, CDP #### [facility] [address] [place] [address] Branch Mechanic: Rasta Mohr MD Eosinophils (Bld) [#/Vol] 0.23 10*3/uL Normal 0.00-0.44 [facility] Comment on above: Performed By: #### C P, CDP #### [facility] [address] [place], [place] [id number] Branch Mechanic: Rasta Mohr MD Eosinophils/100 WBC (Bld) 2 % Normal 1-4 [facility] Comment on above: Performed By: #### C P, CDP #### [address] [place], [place] [id number] Branch Mechanic: Rasta Mohr MD Erythrocyte distribution width (RBC) [Ratio] 13.5 % Normal 11.8-14.4 [facility] Comment on above: Performed By: #### C P, CDP #### [address] [place], [place] [id number] Branch Mechanic: Rasta Mohr MD Hematocrit (Bld) [Volume fraction] 42.8 % Normal 40.7-50.3 [facility] Comment on above: Performed By: #### C P, CDP #### [address] [place], [facility]83 Branch Mechanic: Rasta Mohr MD Hemoglobin (Bld) [Mass/Vol] 14.3 g/dL Normal 13.0-17.0 [facility] Comment on above: Performed By: #### C P, CDP #### [address] [place], [place] [id number] Branch Mechanic: Rasta Mohr MD Immature granulocytes/100 WBC (Bld) 0 % Normal 0 [facility] Comment on above: Performed By: #### C P, CDP #### [address] [place], [place] [id number] Branch Mechanic: Rasta Mohr MD Lymphocytes (Bld) [#/Vol] 0.65 10*3/uL Low 1.10-3.70 [facility] Comment on above: Performed By: #### C P, CDP #### [address] [place] [address] Branch Mechanic: Rasta Mohr MD Lymphocytes/100 WBC (Bld) 6 % Low 24-43 [facility] Comment on above: Performed By: #### C P, CDP #### [facility] [address] [place], [place] [id number] Branch Mechanic: Rasta Mohr MD MCH (RBC) [Entitic mass] 30.6 pg Normal 25.2-33.5 [facility] Comment on above: Performed By: #### C P, CDP #### [facility] [address] [place], [facility]83 Branch Mechanic: Rasta Mohr MD MCHC (RBC) [Mass/Vol] 33.4 g/dL Normal 28.4-34.8 [facility] Comment on above: Performed By: #### C P, CDP #### [facility] [address] [place] [id number] Branch Mechanic: Rasta Mohr MD MCV (RBC) [Entitic vol] 91.5 fL Normal 82.6-102.9 [facility] Comment on above: Performed By: #### C P, CDP #### [facility] [address] [place], [place] [id number] Branch Mechanic: Rasta Mohr MD Monocytes (Bld) [#/Vol] 1.32 10*3/uL High 0.10-1.20 [facility] Comment on above: Performed By: #### C P, CDP #### [facility] [address] [place], [facility]83 Branch Mechanic: Rasta Mohr MD Monocytes/100 WBC (Bld) 12 % Normal 3-12 [facility] Comment on above: Performed By: #### C P, CDP #### [facility] [address] [place], [place] [id number] Branch Mechanic: Rasta Mohr MD Neutrophil (Seg) 79 % High 36-65 [facility] Comment on above: Performed By: #### C P, CDP #### [facility] [address] [place], [place] [id number] Branch Mechanic: Rasta Mohr MD NRBC Automated 0.0 per 100 WBC Normal 0.0 [facility] Comment on above: Performed By: #### C P, CDP #### [address] [place], [place] [id number] Branch Mechanic: Rasta Mohr MD Platelet mean volume (Bld) [Entitic vol] 10.2 fL Normal 8.1-13.5 [facility] Comment on above: Performed By: #### C P, CDP #### [address] [place], [place] [id number] Branch Mechanic: Rasta Mohr MD Platelets (Bld) [#/Vol] 195 10*3/uL Normal 138-453 [facility] Comment on above: Performed By: #### C P, CDP #### [address] [place], [place] [id number] Branch Mechanic: Rasta Mohr MD RBC (Bld) [#/Vol] 4.68 10*6/uL Normal 4.21-5.77 [facility] Comment on above: Performed By: #### C P, CDP #### [address] [place], [place] [id number] Branch Mechanic: Rasta Mohr MD WBC (Bld) [#/Vol] 11.2 10*3/uL Normal 3.5-11.3 [facility] Comment on above: Performed By: #### C P, CDP #### [address] [place] [address] Branch Mechanic: Rasta Mohr MD Comp Metabolic Profon 2022 Albumin [Mass/Vol] 3.9 g/dL Normal 3.5-5.2 [facility] Comment on above: Performed By: #### C P, CDP #### [address] [place], [place] [id number] Branch Mechanic: Rasta Mohr MD Albumin/Glob Ratio 0.9 Low 1.0-2.5 [facility] Comment on above: Performed By: #### C P, CDP #### [facility] [address] [place], [place] [id number] Branch Mechanic: Rasta Mohr MD Alkaline Phos 201 U/L High 40-129 [facility] Comment on above: Performed By: #### C P, CDP #### [facility] [address] [place], [place] [id number] Branch Mechanic: Rasta Mohr MD ALT [Catalytic activity/Vol] 15 U/L Normal 5-41 [facility] Comment on above: Performed By: #### C P, CDP #### [facility] [address] [place], [place] [id number] Branch Mechanic: Rasta Mohr MD Anion gap [Moles/Vol] 11 mmol/L Normal 9-17 [facility] Comment on above: Performed By: #### C P, CDP #### [facility] [address] [place], [place] [id number] Branch Mechanic: Rasta Mohr MD AST [Catalytic activity/Vol] 19 U/L Normal <40 [facility] Comment on above: Performed By: #### C P, CDP #### [facility] [address] [place], [place] [id number] Branch Mechanic: Rasta Mohr MD Bilirubin [Mass/Vol] 0.4 mg/dL Normal 0.3-1.2 [facility] Comment on above: Performed By: #### C P, CDP #### [facility] [address] [place], [place] [id number] Branch Mechanic: Rasta Mohr MD BUN/CRE Ratio 20 Normal 9-20 [facility] Comment on above: Performed By: #### C P, CDP #### [facility] [address] [place], [place] [id number] Branch Mechanic: Rasta Mohr MD Calcium [Mass/Vol] 9.4 mg/dL Normal 8.6-10.4 [facility] Comment on above: Performed By: #### C P, CDP #### [facility] [address] [place], [place] [id number] Branch Mechanic: Rasta Mohr MD Chloride [Moles/Vol] 102 mmol/L Normal 98-107 [facility] Comment on above: Performed By: #### C P, CDP #### [facility] [address] [place], [place] [id number] Branch Mechanic: Rasta Mohr MD CO2 [Moles/Vol] 25 mmol/L Normal 20-31 [facility] Comment on above: Performed By: #### C P, CDP #### [facility] [address] [place], [place] [id number] Branch Mechanic: Rasta Mohr MD Creatinine [Mass/Vol] 0.84 mg/dL Normal 0.70-1.20 [facility] Comment on above: Performed By: #### C P, CDP #### [address] [place], [place] [id number] Branch Mechanic: Rasta Mohr MD GFR/1.73 sq M.predicted among non-blacks MDRD (S/P/Bld) [Vol rate/Area] mL/min/{1.73_m2} Normal >60 [facility] Comment on above: Result Comment: These [...] Performed By: #### C P, CDP #### [facility] [address] [place], [place] [id number] Branch Mechanic: Rasta Mohr MD Glucose [Mass/Vol] 101 mg/dL High 70-99 [facility] Comment on above: Performed By: #### C P, CDP #### [facility] [address] [place], [place] [id number] Branch Mechanic: Rasta Mohr MD Potassium [Moles/Vol] 4.3 mmol/L Normal 3.7-5.3 [facility] Comment on above: Performed By: #### C P, CDP #### [facility] [address] [place], [place] [phone] Branch Mechanic: Rasta Mohr MD Protein [Mass/Vol] 8.1 g/dL Normal 6.4-8.3 [facility] Comment on above: Performed By: #### C P, CDP #### [facility] [address] [place], [place] [id number] Branch Mechanic: Rasta Mohr MD Sodium [Moles/Vol] 138 mmol/L Normal 135-144 [facility] Comment on above: Performed By: #### C P, CDP #### [facility] [address] [place], [place] [id number] Branch Mechanic: Rasta Mohr MD Urea nitrogen [Mass/Vol] 17 mg/dL Normal 8-23 [facility] Comment on above: Performed By: #### C P, CDP #### [facility] [address] [place], [place] [id number] Branch Mechanic: Rasta Mohr MD Comprehensive Metabolic Pane [facility] 04-02-2023 Albumin [Mass/Vol] 3.9 g/dL 3.5 - 5.2 g/dL [facility] Albumin/Globulin [Mass ratio] 0.9 {ratio} Low 1.0 - 2.5 [facility] ALP [Catalytic activity/Vol] 201 U/L High 40 - 129 U/L [facility] ALT [Catalytic activity/Vol] 15 U/L 5 - 41 U/L [facility] Anion gap [Moles/Vol] 11 mmol/L 9 - 17 mmol/L [facility] AST [Catalytic activity/Vol] 19 U/L NINF - 40 U/L [facility] Bilirubin [Mass/Vol] 0.4 mg/dL 0.3 - 1 .2 mg/dL [facility] Calcium [Mass/Vol] 9.4 mg/dL 8.6 - 10. 4 mg/dL [facility] Chloride [Moles/Vol] 102 mmol/L 98 - 10 7 mmol/L [facility] CO2 [Moles/Vol] 25 mmol/L 20 - 31 mmol/L [facility] Creatinine [Mass/Vol] 0.84 mg/dL 0.70 - 1.20 mg/dL [facility] GFR/1.73 sq M.predicted MDRD (S/P/Bld) [Vol rate/Area] - PINF [facility] Comment on above: These results are [...] 101 mg/dL High 70 - 99 mg/dL [facility] Interpretation and review of laboratory results Abnormal [facility] Potassium [Moles/Vol] 4.3 mmol/L 3.7 - 5.3 mmol/L [facility] Protein [Mass/Vol] 8.1 g/dL 6.4 - 8.3 g/dL [facility] Sodium [Moles/Vol] 138 mmol/L 135 - 144 mmol/L [facility] Urea nitrogen [Mass/Vol] 17 mg/dL 8 - 23 mg/dL [facility] Urea nitrogen/Creatinine [Mass ratio] 20 mg/mg 9 - 20 [facility] TSHon 04-02-2023 TSH [Mass/Vol] 0.52 [place] [facility] [place] [facility] Thyroid Stim. Horm.on 2022 Thyroid Stim. Horm. 0.52 uIU/mL Normal 0.30-5.00 [facility] Comment on above: Performed By: #### T SH #### [facility] [address] [place] [address] Branch Mechanic: Rasta Mohr MD CBC Auto DifferentialOrdered By: Maritza Mendoza on 04-05-2021 Absolute Eos # 0.24 [employer] Phone: Absolute Immature Granulocyte 0.03 [employer] Phone: Absolute Lymph # 1.16 [employer] Phone: Absolute Ponce # 0.79 [employer] Phone: Basophils (Bld) [#/Vol] 0.05 10*3/uL [employer] Phone: Basophils/100 WBC (Bld) 1 % 0 - 2 % [employer] Phone: Differential Type NOT REPORTED [employer] Phone: Eosinophils/100 WBC (Bld) 4 % 1 - 4 % [employer] Phone: Hematocrit (Bld) [Volume fraction] 47.7 % 40.7 - 50.3 % [employer] Phone: Hemoglobin.gastrointe stinal spec 1 Ql (Stl) 15.6 g/dL 13.0 - 17.0 g/dL [employer] Phone: Immature granulocytes/100 WBC (Bld) 1 % High 0 [employer] Phone: Interpretation and review of laboratory results Abnormal [employer] Phone: Lymphocytes/100 WBC (Bld) 18 % Low 24 - 43 % [employer] Phone: MCH (RBC) [Entitic mass] 31.0 pg 25.2 - 33.5 pg [employer] Phone: MCHC (RBC) [Mass/Vol] 32.7 g/dL 28.4 - 34.8 g/dL [employer] Phone: MCV (RBC) [Entitic vol] 94.6 fL 82.6 - 102.9 fL [employer] Phone: Monocytes/100 WBC (Bld) 12 % 3 - 12 % [employer] Phone: NRBC Automated 0.0 0.0 per 100 WBC [employer] Phone: Platelet distribution width (Bld) [Ratio] 13.2 % 11.8 - 14.4 % [employer] Phone: Platelet Estimate NOT REPORTED [employer] Phone: Platelet mean volume (Bld) [Entitic vol] 10.1 fL 8.1 - 13.5 fL [employer] Phone: Platelets (Bld) [#/Vol] 193 10*3/uL [employer] Phone: RBC (Bld) [#/Vol] 5.04 10*6/uL 4.21 - 5.77 m/uL [employer] Phone: RBC (Bld) [#/Vol] NOT REPORTED [employer] Phone: Segmented neutrophils/100 WBC (Bld) 64 % 36 - 65 % [employer] Phone: Segs Absolute 4.19 [employer] Phone: WBC (Bld) [#/Vol] 6.5 10*3/uL [employer] Phone: WBC (Bld) [#/Vol] NOT REPORTED [employer] Phone: [employer] Phone: Comprehensive Metabolic Pane lOrdered By: Maritza Mendoza on 04-05-2021 Albumin [Mass/Vol] 4.2 g/dL 3.5 - 5.2 g/dL [employer] Phone: Albumin/Globulin [Mass ratio] 1.0 {ratio} [employer] Phone: ALP (Bld) [Catalytic activity/Vol] 187 U/L High 40 - 129 U/L [employer] Phone: ALT [Catalytic activity/Vol] 23 U/L 5 - 41 U/L [employer] Phone: Anion gap [Moles/Vol] 10 mmol/L 9 - 17 mmol/L [employer] Phone: AST [Catalytic activity/Vol] 21 U/L <40 [employer] Phone: Bilirubin [Mass/Vol] 0.34 mg/dL 0.3 - 1 .2 mg/dL [employer] Phone: Calcium [Mass/Vol] 9.5 mg/dL 8.6 - 10. 4 mg/dL [employer] Phone: Chloride [Moles/Vol] 102 mmol/L 98 - 10 7 mmol/L [employer] Phone: CO2 [Moles/Vol] 26 mmol/L 20 - 31 mmol/L [employer] Phone: Creatinine [Mass/Vol] 0.82 mg/dL 0.70 - 1.20 mg/dL [employer] Phone: Free PSA/Total PSA [Mass fraction] 8.3 g/dL 6.4 - 8.3 g/dL [employer] Phone: GFR >60 >60 mL/min [employer] Phone: GFR Non- >60 >60 mL/min [employer] Phone: Glucose [Mass/Vol] 97 mg/dL 70 - 99 mg/dL [employer] Phone: Interpretation and review of laboratory results Abnormal [employer] Phone: Potassium [Moles/Vol] 4.2 mmol/L 3.7 - 5.3 mmol/L [employer] Phone: Sodium [Moles/Vol] 138 mmol/L 135 - 144 mmol/L [employer] Phone: Urea nitrogen (BldV) [Mass/Vol] 16 mg/dL 8 - 23 mg/dL [employer] Phone: Urea nitrogen/Creatinine (Bld) [Mass ratio] 20 [employer] Phone: Laboratory - Chemistry and C hemistry - challengeOrdered By: Maritza Mendoza on 04-05-2021 GFR/1.73 sq M.predicted MDRD (S/P/Bld) [Vol rate/Area] [employer] Phone: Comment on above: Average GFR for 60-6 9 years old: 85 mL/min/1.73sq m Chronic Kidney Disease: <60 mL/min/1.73sq m Kidney failure: <15 mL/min/1.73sq m eGFR calculated using average adult body mass. Additional eGFR calculator available at: http://www.[employer]/multiple_crcl_2012.htm Stage 1: Some kidney damage normal GFR Stage 2: Mild kidney damage GFR 60-89 Stage 3: Moderate kidney damage GFR 30-59 Stage 4: Severe kidney damage GFR 15-29 Stage 5: Severe kidney damage GFR <15 ESRD - chronic treatment by dialysis or transplant Lactate DehydrogenaseOrdered By: Maritza Mendoza on 04-05-2021 LD 163 U/L 135 - 225 U/L [employer] Phone: No Panel InformationOrdered By: Maritza Mendoza on 04-05-2021 [employer] Phone: TSH without ReflexOrdered By : Maritza Mendoza on 04-05-2021 Interpretation and review of laboratory results Abnormal [employer] Phone: TSH Qn 0.19 m[IU]/L Low [employer] Phone: [employer] Phone: CBC Auto Differentialon 04-03 Basophils (Bld) [#/Vol] 0.07 10*3/uL [place] Basophils/100 WBC (Bld) 1 % 0 - 2 % [place] Differential Type NOT REPORTED [place] Eosinophils (Bld) [#/Vol] 0.24 10*3/uL [place] Eosinophils/100 WBC (Bld) 4 % 1 - 4 % [place] Erythrocyte distribution width (RBC) [Ratio] 13.5 % 11.8 - 14.4 % [place] Hematocrit (Bld) [Volume fraction] 48.7 % 40.7 - 50.3 % [place] Hemoglobin (Bld) [Mass/Vol] 15.9 g/dL 13 - 17 g/dL [place] Immature granulocytes (Bld) [#/Vol] 10*3/uL [place] Immature granulocytes (Bld) [#/Vol] 0 % 0 [place] Interpretation and review of laboratory results Abnormal [place] Lymphocytes (Bld) [#/Vol] 1.28 10*3/uL [place] Lymphocytes/100 WBC (Bld) 19 % Low 24 - 43 % [place] MCH (RBC) [Entitic mass] 30.7 pg 25.2 - 33.5 pg [place] MCHC (RBC) [Mass/Vol] 32.6 g/dL 28.4 - 34.8 g/dL [place] MCV (RBC) [Entitic vol] 94.0 fL 82.6 - 102.9 fL [place] Monocytes (Bld) [#/Vol] 0.98 10*3/uL [place] Monocytes/100 WBC (Bld) 15 % High 3 - 12 % [place] Platelet mean volume (Bld) [Entitic vol] 10.3 fL 8.1 - 13.5 fL [place] Platelets (Bld) [#/Vol] NOT REPORTED [place] Platelets (Bld) [#/Vol] 209 10*3/uL [place] RBC (Bld) [#/Vol] 5.18 10*6/uL 4.21 - 5.77 m/uL [place] RBC morphology finding Nom (Bld) NOT REPORTED [place] Segmented neutrophils/100 WBC (Bld) 61 % 36 - 65 % [place] Segs Absolute 4.13 [place] WBC (Bld) [#/Vol] 0.0 10*3/uL 0.0 per 100 WBC [place] WBC (Bld) [#/Vol] 6.7 10*3/uL [place] WBC Morphology NOT REPORTED [place] Comprehensive Metabolic Pane cheng 04-17-2020 Albumin [Mass/Vol] 4.2 g/dL 3.5 - 5.2 g/dL [place] Albumin/Globulin [Mass ratio] 1.1 {ratio} [place] ALP [Catalytic activity/Vol] 161 U/L High 40 - 129 U/L [place] ALT [Catalytic activity/Vol] 24 U/L 5 - 41 U/L [place] Anion gap [Moles/Vol] 13 mmol/L 9 - 17 mmol/L [place] AST [Catalytic activity/Vol] 19 U/L <40 [place] Bilirubin Ql (U) 0.27 mg/dL Low 0.3 - 1.2 mg/dL [place] Bun/Cre Ratio 12 [place] Calcium [Mass/Vol] 9.4 mg/dL 8.6 - 10. 4 mg/dL [place] Chloride [Moles/Vol] 103 mmol/L 98 - 10 7 mmol/L [place] CO2 [Moles/Vol] 24 mmol/L 20 - 31 mmol/L [place] Creatinine [Mass/Vol] 0.81 mg/dL 0.7 - 1.2 mg/dL [place] GFR >60 >60 mL/min [place] GFR Non- >60 >60 mL/[place] Glucose [Mass/Vol] 104 mg/dL High 70 - 99 mg/[place] Interpretation and review of laboratory results Abnormal [place] Potassium [Moles/Vol] 4.2 mmol/L 3.7 - 5.3 mmol/L [place] Protein [Mass/Vol] 8.0 g/dL 6.4 - 8.3 g/dL [place] Sodium [Moles/Vol] 140 mmol/L 135 - 144 mmol/L [place] Urea nitrogen [Mass/Vol] 10 mg/dL 8 - 23 mg/dL [place] Lactate Dehydrogenaseon 04-03 LD 181 U/L 135 - 225 U/L [place] Metabolic Panelon 04-17-2020 GFR/1.73 sq M predicted among non-blacks MDRD (S/P/Bld) [Vol rate/Area] [place] Comment on above: Stage 1: Some [...] body mass. Additional eGFR calculator available at: http://[email or web address] Vital Signs Date Time Vital Sign Value Performing Clinician Facility 07-19-2024 09:33-0400 Body mass index (BMI) [Ratio] 25.83 kg/m2 Michael Boykin MD Work Phone: [facility] 07-19-2024 09:33-0400 Body temperature 97.5 [degF] Michael Boykin MD Work Phone: [facility] 07-19-2024 09:33-0400 Body weight 83.7 kg Michael Boykin MD Work Phone: [facility] 07-19-2024 09:33-0400 Diastolic blood pressure 86 mm[Hg] Michael Boykin MD Work Phone: [facility] 07-19-2024 09:33-0400 Heart rate 79 /min Michael Boykin MD Work Phone: [facility] 07-19-2024 09:33-0400 Respiratory rate 16 /min Michael Boykin MD Work Phone: [facility] 07-19-2024 09:33-0400 SaO2% (BldA) [Mass fraction] 97 % Michael Boykin MD Work Phone: [facility] 07-19-2024 09:33-0400 Systolic blood pressure 135 mm[Hg] Michael Boykin MD Work Phone: [facility] 06-17-2024 15:17-0400 Body mass index (BMI) [Ratio] 25.74 kg/m2 Michael Boykin MD Work Phone: [facility] 06-17-2024 15:17-0400 Body temperature 97.11 [degF] Michael Boykin MD Work Phone: [facility] 06-17-2024 15:17-0400 Body weight 83.4 kg Michael Boykin MD Work Phone: [facility] 06-17-2024 15:17-0400 Diastolic blood pressure 80 mm[Hg] Michael Boykin MD Work Phone: [facility] 06-17-2024 15:17-0400 Heart rate 79 /min Michael Boykin MD Work Phone: [facility] 06-17-2024 15:17-0400 Respiratory rate 18 /min Michael Boykin MD Work Phone: [facility] 06-17-2024 15:17-0400 SaO2% (BldA) [Mass fraction] 100 % Michael Boykin MD Work Phone: [facility] 06-17-2024 15:17-0400 Systolic blood pressure 124 mm[Hg] Michael Boykin MD Work Phone: [facility] 06-08-2024 13:49-0400 Blood Pressure Location [facility]iquita N[facility] 06-08-2024 13:49-0400 Diastolic blood pressure 80 mm[Hg] Chiquita NILL [facility] 06-08-2024 13:49-0400 Heart rate 72 /min Chiquita NILL [facility] 06-08-2024 13:49-0400 Respiratory rate 16 /min Chiquita NILL [facility] 06-08-2024 13:49-0400 Systolic blood pressure 122 mm[Hg] Chiquita NILL [facility] 05-13-2024 11:11-0400 Body mass index (BMI) [Ratio] 25.28 kg/m2 Niesha Galdamez MD Work Phone: [facility] 05-13-2024 11:11-0400 Body temperature 97.7 [degF] Niesha Galdamez MD Work Phone: [facility] 05-13-2024 11:11-0400 Body weight 81.9 kg Niesha Galdamez MD Work Phone: [facility] Comment on above: shoes on 05-13-2024 11:11-0400 Diastolic blood pressure 72 mm[Hg] Niesha Galdamez MD Work Phone: [facility] 05-13-2024 11:11-0400 Heart rate 72 /min Niesha Galdamez MD Work Phone: [facility] 05-13-2024 11:11-0400 Respiratory rate 18 /min Niesha Galdamez MD Work Phone: [facility] 05-13-2024 11:11-0400 SaO2% (BldA) [Mass fraction] 99 % Niesha Galdamez MD Work Phone: [facility] 05-13-2024 11:11-0400 Systolic blood pressure 135 mm[Hg] Niesha Galdamez MD Work Phone: [facility] 05-13-2024 09:04-0400 Body mass index (BMI) [Ratio] 24.92 kg/m2 Dylan Porter MD Work Phone: [facility] 05-13-2024 09:04-0400 Body temperature 97.7 [degF] Dylan Porter MD Work Phone: [facility] 05-13-2024 09:04-0400 Body weight 80.74 kg Dylan Porter MD Work Phone: [facility] 05-13-2024 09:04-0400 Diastolic blood pressure 81 mm[Hg] Dylan Porter MD Work Phone: [facility] 05-13-2024 09:04-0400 Heart rate 74 /min Dylan Porter MD Work Phone: [facility] 05-13-2024 09:04-0400 SaO2% (BldA) [Mass fraction] 99 % Dylan Porter MD Work Phone: [facility] 05-13-2024 09:04-0400 Systolic blood pressure 134 mm[Hg] Dylan Porter MD Work Phone: [facility] 04-23-2024 08:54-0400 Body mass index (BMI) [Ratio] 24.35 kg/m2 Nabila Chery GRAB [employer]IVER.[employer]STRU[employer] PROJECT MANAGER Work Phone: [facility] 04-23-2024 08:54-0400 Body temperature 98.1 [degF] Nabila Chery GRAB DRIVER.ELECTRICAL CONSTRUCTION PROJECT MANAGER Work Phone: [facility] 04-23-2024 08:54-0400 Body weight 78.9 kg Nabila Chery GRAB DRIVER.ELECTRICAL CONSTRUCTION PROJECT MANAGER Work Phone: [facility] 04-23-2024 08:54-0400 Diastolic blood pressure 64 mm[Hg] Nabila Chery GRAB DRIVER.ELECTRICAL CONSTRUCTION PROJECT MANAGER Work Phone: [facility] 04-23-2024 08:54-0400 Heart rate 72 /min Nabila Chery GRAB DRIVER.ELECTRICAL CONSTRUCTION PROJECT MANAGER Work Phone: [facility] 04-23-2024 08:54-0400 Respiratory rate 19 /min Nabila Chery GRAB DRIVER.ELECTRICAL CONSTRUCTION PROJECT MANAGER Work Phone: [facility] 04-23-2024 08:54-0400 SaO2% (BldA) [Mass fraction] 99 % Nabila Chery GRAB DRIVER.ELECTRICAL CONSTRUCTION PROJECT MANAGER Work Phone: [facility] 04-23-2024 08:54-0400 Systolic blood pressure 108 mm[Hg] Nabila Chery GRAB DRIVER.ELECTRICAL CONSTRUCTION PROJECT MANAGER Work Phone: [facility] 04-23-2024 07:40-0400 Body mass index (BMI) [Ratio] 24.41 kg/m2 Chair Ntu Work Phone: [facility] 04-23-2024 07:40-0400 Body temperature 97.7 [degF] Chair Ntu Work Phone: [facility] 04-23-2024 07:40-0400 Body weight 79.1 kg Chair Ntu Work Phone: [facility] 04-23-2024 07:40-0400 Diastolic blood pressure 64 mm[Hg] Chair Ntu Work Phone: [facility] 04-23-2024 07:40-0400 Heart rate 72 /min Chair Ntu Work Phone: [facility] 04-23-2024 07:40-0400 Respiratory rate 18 /min Chair Ntu Work Phone: [facility] 04-23-2024 07:40-0400 SaO2% (BldA) [Mass fraction] 100 % Chair Ntu Work Phone: [facility] 04-23-2024 07:40-0400 Systolic blood pressure 113 mm[Hg] Chair Ntu Work Phone: [facility] 04-03-2024 07:27-0400 Body temperature 98.1 [degF] Chair 2 Work Phone: [facility] 04-03-2024 07:27-0400 Diastolic blood pressure 62 mm[Hg] Chair 2 Work Phone: [facility] 04-03-2024 07:27-0400 Heart rate 80 /min Chair 2 Work Phone: [facility] 04-03-2024 07:27-0400 Respiratory rate 18 /min Chair 2 Work Phone: [facility] 04-03-2024 07:27-0400 Systolic blood pressure 109 mm[Hg] Chair 2 Work Phone: [facility] 04-02-2024 10:23-0400 Body temperature 98.2 [degF] Chair 2 Work Phone: [facility] 04-02-2024 10:23-0400 Diastolic blood pressure 69 mm[Hg] Chair 2 Work Phone: [facility] 04-02-2024 10:23-0400 Heart rate 73 /min Chair 2 Work Phone: [facility] 04-02-2024 10:23-0400 Respiratory rate 18 /min Chair 2 Work Phone: [facility] 04-02-2024 10:23-0400 Systolic blood pressure 113 mm[Hg] Chair 2 Work Phone: [facility] 04-01-2024 10:010400 Body height 180.2 cm Chair 2 Work Phone: [facility] Comment on above: SHOES ON 04-01-2024 10:01-0400 Body mass index (BMI) [Ratio] 25.87 kg/m2 Chair 2 Work Phone: [facility] 04-01-2024 10:01-0400 Body weight 84 kg Chair 2 Work Phone: [facility] 04-01-2024 09:19-0400 Body height 176.6 cm Niesha Galdamez MD Work Phone: [facility] Comment on above: shoes off 04-01-2024 09:19-0400 Body mass index (BMI) [Ratio] 26.74 kg/m2 Niesha Galdamez MD Work Phone: [facility] 04-01-2024 09:19-0400 Body temperature 97.59 [degF] Niesha Galdamez MD Work Phone: [facility] 04-01-2024 09:19-0400 Body weight 83.4 kg Niesha Galdamez MD Work Phone: [facility] Comment on above: shoes off 04-01-2024 09:19-0400 Diastolic blood pressure 67 mm[Hg] Niesha Galdamez MD Work Phone: [facility] 04-01-2024 09:19-0400 Heart rate 73 /min Niesha Galdamez MD Work Phone: [facility] 04-01-2024 09:19-0400 Respiratory rate 18 /min Niesha Galdamez MD Work Phone: [facility] 04-01-2024 09:19-0400 SaO2% (BldA) [Mass fraction] 97 % Niesha Galdamez MD Work Phone: [facility] 04-01-2024 09:19-0400 Systolic blood pressure 126 mm[Hg] Niesha Galdamez MD Work Phone: [facility] 03-22-2024 15:58-0400 Body mass index (BMI) [Ratio] 25.9 kg/m2 JUANPABLO Varela MD Work Phone: [facility] 03-22-2024 15:58-0400 Body temperature 97.3 [degF] JUANPABLO Varela MD Work Phone: [facility] 03-22-2024 15:58-0400 Body weight 84 kg JUANPABLO Varela MD Work Phone: [facility] 03-22-2024 15:58-0400 Diastolic blood pressure 82 mm[Hg] JUANPABLO Varela MD Work Phone: [facility] 03-22-2024 15:58-0400 Heart rate 85 /min JUANPABLO Varela MD Work Phone: [facility] 03-22-2024 15:58-0400 Respiratory rate 18 /min JUANPABLO Varela MD Work Phone: [facility] 03-22-2024 15:58-0400 SaO2% (BldA) [Mass fraction] 98 % JUANPABLO Varela MD Work Phone: [facility] 03-22-2024 15:58-0400 Systolic blood pressure 145 mm[Hg] JUANPABLO Varela MD Work Phone: [facility] 03-16-2024 14:31-0400 Body mass index (BMI) [Ratio] 25.87 kg/m2 JUANPABLO Varela MD Work Phone: [facility] 03-16-2024 14:31-0400 Body temperature 98.29 [degF] JUANPABLO Varela MD Work Phone: [facility] 03-16-2024 14:31-0400 Body weight 83.9 kg JUANPABLO Varela MD Work Phone: [facility] 03-16-2024 14:31-0400 Diastolic blood pressure 83 mm[Hg] JUANPABLO Varela MD Work Phone: [facility] 03-16-2024 14:31-0400 Heart rate 91 /min JUANPABLO Vaerla MD Work Phone: [facility] 03-16-2024 14:31-0400 Respiratory rate 16 /min JUANPABLO Varela MD Work Phone: [facility] 03-16-2024 14:31-0400 SaO2% (BldA) [Mass fraction] 97 % JUANPABLO Varela MD Work Phone: [facility] 03-16-2024 14:31-0400 Systolic blood pressure 119 mm[Hg] JUANPABLO Varela MD Work Phone: [facility] 03-15-2024 07:41-0400 Body mass index (BMI) [Ratio] 26.49 kg/m2 JUANPABLO Varela MD Work Phone: [facility] 03-15-2024 07:41-0400 Body temperature 97.9 [degF] JUANPABLO Varela MD Work Phone: [facility] 03-15-2024 07:41-0400 Body weight 85.91 kg JUANPABLO Varela MD Work Phone: [facility] 03-15-2024 07:41-0400 Diastolic blood pressure 81 mm[Hg] JUANPABLO Varela MD Work Phone: [facility] 03-15-2024 07:41-0400 Heart rate 79 /min JUANPABLO Varela MD Work Phone: [facility] 03-15-2024 07:41-0400 Respiratory rate 18 /min JUANPABLO Varela MD Work Phone: [facility] 03-15-2024 07:41-0400 SaO2% (BldA) [Mass fraction] 95 % JUANPABLO Varela MD Work Phone: [facility] 03-15-2024 07:41-0400 Systolic blood pressure 116 mm[Hg] JUANPABLO Varela MD Work Phone: [facility] 03-09-2024 13:57-0400 Body temperature 98.2 [degF] Apheresis Main Work Phone: [facility] 03-09-2024 13:57-0400 Diastolic blood pressure 80 mm[Hg] [facility] Main Work Phone: [facility] 03-09-2024 13:57-0400 Heart rate 81 /min [facility] Main Work Phone: [facility] 03-09-2024 13:57-0400 Respiratory rate 18 /min [facility] Main Work Phone: [facility] 03-09-2024 13:57-0400 Systolic blood pressure 134 mm[Hg] [facility] Main Work Phone: [facility] 03-09-2024 13:11-0400 SaO2% (BldA) [Mass fraction] 96 % [facility] Main Work Phone: [facility] Comment on above: 03-09-2024 09:15-0400 Body height 180.1 cm [facility] Main Work Phone: [facility] 03-09-2024 09:15-0400 Body mass index (BMI) [Ratio] 25.31 kg/m2 [facility] Main Work Phone: [facility] 03-09-2024 09:15-0400 Body weight 82.1 kg [facility] Main Work Phone: [facility] 03-08-2024 15:34-0400 Body height 177.2 cm Niesha Galdamez MD Work Phone: [facility] 03-08-2024 15:34-0400 Body mass index (BMI) [Ratio] 26.21 kg/m2 Niesha Galdamez MD Work Phone: [facility] 03-08-2024 15:34-0400 Body temperature 97.5 [degF] Niesha Galdamez MD Work Phone: [facility] 03-08-2024 15:34-0400 Body weight 82.3 kg Niesha Galdamez MD Work Phone: [facility] 03-08-2024 15:34-0400 Diastolic blood pressure 76 mm[Hg] Niesha Galdamez MD Work Phone: [facility] 03-08-2024 15:34-0400 Heart rate 91 /min Niesha Galdamez MD Work Phone: [facility] 03-08-2024 15:34-0400 Respiratory rate 20 /min Niesha Gladamez MD Work Phone: [facility] 03-08-2024 15:34-0400 SaO2% (BldA) [Mass fraction] 97 % Niesha Galdamez MD Work Phone: [facility] 03-08-2024 15:34-0400 Systolic blood pressure 130 mm[Hg] Niesha Galdamez MD Work Phone: [facility] 02-12-2024 10:55-0400 Body temperature 97.9 [degF] Niesha Galdamez MD Work Phone: [facility] 02-12-2024 10:55-0400 Body weight 84 kg Niesha Galdamez MD Work Phone: [facility] 02-12-2024 10:55-0400 Diastolic blood pressure 72 mm[Hg] Niesha Galdamez MD Work Phone: [facility] 02-12-2024 10:55-0400 Heart rate 75 /min Niesha Galdamez MD Work Phone: [facility] 02-12-2024 10:55-0400 Respiratory rate 18 /min Niesha Galdamez MD Work Phone: [facility] 02-12-2024 10:55-0400 SaO2% (BldA) [Mass fraction] 99 % Niesha Galdamez MD Work Phone: [facility] 02-12-2024 10:55-0400 Systolic blood pressure 133 mm[Hg] Niesha Galdamez MD Work Phone: [facility] 02-02-2024 15:44-0400 Body temperature 97.2 [degF] Michael Boykin MD Work Phone: [facility] 02-02-2024 15:44-0400 Body weight 83.2 kg Michael Boykin MD Work Phone: [facility] 02-02-2024 15:44-0400 Diastolic blood pressure 76 mm[Hg] Michael Boykin MD Work Phone: [facility] 02-02-2024 15:44-0400 Heart rate 81 /min Michael Boykin MD Work Phone: [facility] 02-02-2024 15:44-0400 Respiratory rate 18 /min Michael Boykin MD Work Phone: [facility] 02-02-2024 15:44-0400 SaO2% (BldA) [Mass fraction] 98 % Michael Boykin MD Work Phone: [facility] 02-02-2024 15:44-0400 Systolic blood pressure 135 mm[Hg] Michael Boykin MD Work Phone: [facility] 01-28-2024 09:55-0400 Body height 179.1 cm Dorcas Bolanos MD Work Phone: [facility] 01-28-2024 09:55-0400 Body mass index (BMI) [Ratio] 26.38 kg/m2 Dorcas Bolanos MD Work Phone: [facility] 01-28-2024 09:55-0400 Body temperature 97.9 [degF] Dorcas Bolanos MD Work Phone: [facility] 01-28-2024 09:55-0400 Body weight 84.6 kg Dorcas Bolanos MD Work Phone: [facility] 01-28-2024 09:55-0400 Diastolic blood pressure 71 mm[Hg] Dorcas Bolanos MD Work Phone: [facility] 01-28-2024 09:55-0400 Heart rate 91 /min Dorcas Bolanos MD Work Phone: [facility] 01-28-2024 09:55-0400 Respiratory rate 16 /min Dorcas Bolanos MD Work Phone: [facility] 01-28-2024 09:55-0400 SaO2% (BldA) [Mass fraction] 98 % Dorcas Bolanos MD Work Phone: [facility] 01-28-2024 09:55-0400 Systolic blood pressure 129 mm[Hg] Dorcas Bolanos MD Work Phone: [facility] 01-12-2024 14:05-0400 Body temperature 97 [degF] Michael Boykin MD Work Phone: [facility] 01-12-2024 14:05-0400 Body weight 83.9 kg Michael Boykin MD Work Phone: [facility] 01-12-2024 14:05-0400 Diastolic blood pressure 77 mm[Hg] Michael Boykin MD Work Phone: [facility] 01-12-2024 14:05-0400 Heart rate 100 /min Michael Boykin MD Work Phone: [facility] 01-12-2024 14:05-0400 Respiratory rate 18 /min Michael Boykin MD Work Phone: [facility] 01-12-2024 14:05-0400 SaO2% (BldA) [Mass fraction] 97 % Michael Boykin MD Work Phone: [facility] 01-12-2024 14:05-0400 Systolic blood pressure 140 mm[Hg] Michael Boykin MD Work Phone: [facility] 01-05-2024 12:35-0500 Body height 177.8 cm Niesha Galdamez MD Work Phone: [facility] 01-05-2024 12:35-0500 Body temperature 97.11 [degF] Niesha Galdamez MD Work Phone: [facility] 01-05-2024 12:35-0500 Body weight 83.7 kg Niesha Galdamez MD Work Phone: [facility] 01-05-2024 12:35-0500 Diastolic blood pressure 80 mm[Hg] Niesha Galdamez MD Work Phone: [facility] 01-05-2024 12:35-0500 Heart rate 93 /min Niesha Galdamez MD Work Phone: [facility] 01-05-2024 12:35-0500 Respiratory rate 15 /min Niesha Galdamez MD Work Phone: [facility] 01-05-2024 12:35-0500 SaO2% (BldA) [Mass fraction] 96 % Niesha Galdamez MD Work Phone: [facility] 01-05-2024 12:35-0500 Systolic blood pressure 139 mm[Hg] Niesha Galdamez MD Work Phone: [facility] 12-30-2023 11:03-0500 Body temperature 98.49 [degF] JUANPABLO Varela MD Work Phone: [facility] 12-30-2023 11:03-0500 Body weight 84.8 kg JUANPABLO Varela MD Work Phone: [facility] 12-30-2023 11:03-0500 Diastolic blood pressure 81 mm[Hg] JUANPABLO Varela MD Work Phone: [facility] 12-30-2023 11:03-0500 Heart rate 89 /min JUANPABLO Varela MD Work Phone: [facility] 12-30-2023 11:03-0500 Respiratory rate 16 /min JUANPABLO Varela MD Work Phone: [facility] 12-30-2023 11:03-0500 SaO2% (BldA) [Mass fraction] 97 % JUANPABLO Varela MD Work Phone: [facility] 12-30-2023 11:03-0500 Systolic blood pressure 116 mm[Hg] JUANPABLO Varela MD Work Phone: [facility] 12-25-2023 14:58-0500 Body height 179.5 cm Michael Boykin MD Work Phone: [facility] 12-25-2023 14:58-0500 Body temperature 97.7 [degF] Michael Boykin MD Work Phone: [facility] 12-25-2023 14:58-0500 Body weight 84.2 kg Michael Boykin MD Work Phone: [facility] 12-25-2023 14:58-0500 Diastolic blood pressure 82 mm[Hg] Michael Boykin MD Work Phone: [facility] 12-25-2023 14:58-0500 Heart rate 88 /min Michael Boykin MD Work Phone: [facility] 12-25-2023 14:58-0500 Respiratory rate 16 /min Michael Boykin MD Work Phone: [facility] 12-25-2023 14:58-0500 SaO2% (BldA) [Mass fraction] 98 % Michael Boykin MD Work Phone: [facility] 12-25-2023 14:58-0500 Systolic blood pressure 141 mm[Hg] Michael Boykin MD Work Phone: [facility] 09-03-2023 09:15-0400 Body temperature 97.9 [degF] Chair Jordan Work Phone: [facility] 09-03-2023 09:15-0400 Diastolic blood pressure 71 mm[Hg] Chair Jordan Work Phone: [facility] 09-03-2023 09:15-0400 Heart rate 77 /min Chair Raphine Work Phone: [facility] 09-03-2023 09:15-0400 Respiratory rate 16 /min Chair Raphine Work Phone: [facility] 09-03-2023 09:15-0400 SaO2% (BldA) [Mass fraction] 97 % Chair Raphine Work Phone: [facility] 09-03-2023 09:15-0400 Systolic blood pressure 106 mm[Hg] Chair Jordan Work Phone: [facility] 09-02-2023 09:01-0400 Body height 179.5 cm Michael Boykin MD Work Phone: [facility] 09-02-2023 09:01-0400 Body temperature 97.39 [degF] Michael Boykin MD Work Phone: [facility] 09-02-2023 09:01-0400 Body weight 80.38 kg Michael Boykin MD Work Phone: [facility] 09-02-2023 09:01-0400 Diastolic blood pressure 75 mm[Hg] Michael Boykin MD Work Phone: [facility] 09-02-2023 09:01-0400 Heart rate 80 /min Michael Boykin MD Work Phone: [facility] 09-02-2023 09:01-0400 Respiratory rate 16 /min Michael Boykin MD Work Phone: [facility] 09-02-2023 09:01-0400 SaO2% (BldA) [Mass fraction] 97 % Michael Boykin MD Work Phone: [facility] 09-02-2023 09:01-0400 Systolic blood pressure 130 mm[Hg] Michael Boykin MD Work Phone: [facility] 07-09-2023 09:11-0400 Body temperature 98.01 [degF] Chair Raphine Work Phone: [facility] 07-09-2023 09:11-0400 Diastolic blood pressure 68 mm[Hg] Chair Raphine Work Phone: [facility] 07-09-2023 09:11-0400 Heart rate 74 /min Chair Jordan Work Phone: [facility] 07-09-2023 09:11-0400 Respiratory rate 16 /min Chair Raphine Work Phone: [facility] 07-09-2023 09:11-0400 SaO2% (BldA) [Mass fraction] 98 % Chair Raphine Work Phone: [facility] 07-09-2023 09:11-0400 Systolic blood pressure 112 mm[Hg] Chair Raphine Work Phone: [facility] 07-08-2023 11:42-0400 Body temperature 98.01 [degF] Chair Raphine Work Phone: [facility] 07-08-2023 11:42-0400 Diastolic blood pressure 64 mm[Hg] Chair Jordan Work Phone: [facility] 07-08-2023 11:42-0400 Heart rate 54 /min Chair Jordan Work Phone: [facility] 07-08-2023 11:42-0400 Respiratory rate 16 /min Chair Raphine Work Phone: [facility] 07-08-2023 11:42-0400 SaO2% (BldA) [Mass fraction] 97 % Chair Jordan Work Phone: [facility] 07-08-2023 11:42-0400 Systolic blood pressure 98 mm[Hg] Chair Raphine Work Phone: [facility] 07-08-2023 08:41-0400 Body height 179.5 cm Michael Boykin MD Work Phone: [facility] 07-08-2023 08:41-0400 Body temperature 97.59 [degF] Michael Boykin MD Work Phone: [facility] 07-08-2023 08:41-0400 Body weight 76.57 kg Michael Boykin MD Work Phone: [facility] 07-08-2023 08:41-0400 Diastolic blood pressure 70 mm[Hg] Michael Boykin MD Work Phone: [facility] 07-08-2023 08:41-0400 Heart rate 85 /min Michael Boykin MD Work Phone: [facility] 07-08-2023 08:41-0400 Respiratory rate 18 /min Michael Boykin MD Work Phone: [facility] 07-08-2023 08:41-0400 SaO2% (BldA) [Mass fraction] 97 % Michael Boykin MD Work Phone: [facility] 07-08-2023 08:41-0400 Systolic blood pressure 116 mm[Hg] Michael Boykin MD Work Phone: [facility] 06-11-2023 08:57-0400 Body temperature 98.29 [degF] Chair Raphine Work Phone: [facility] 06-11-2023 08:57-0400 Diastolic blood pressure 72 mm[Hg] Chair Raphine Work Phone: [facility] 06-11-2023 08:57-0400 Heart rate 70 /min Chair Raphine Work Phone: [facility] 06-11-2023 08:57-0400 Respiratory rate 18 /min Chair Raphine Work Phone: [facility] 06-11-2023 08:57-0400 SaO2% (BldA) [Mass fraction] 98 % Chair Jordan Work Phone: [facility] 06-11-2023 08:57-0400 Systolic blood pressure 117 mm[Hg] Chair Jordan Work Phone: [facility] 06-10-2023 14:09-0400 Body temperature 98.2 [degF] Chair Raphine Work Phone: [facility] 06-10-2023 14:09-0400 Diastolic blood pressure 63 mm[Hg] Chair Raphine Work Phone: [facility] 06-10-2023 14:09-0400 Heart rate 70 /min Chair Raphine Work Phone: [facility] 06-10-2023 14:09-0400 Respiratory rate 16 /min Chair Raphine Work Phone: [facility] 06-10-2023 14:09-0400 SaO2% (BldA) [Mass fraction] 96 % Chair Raphine Work Phone: [facility] 06-10-2023 14:09-0400 Systolic blood pressure 102 mm[Hg] Chair Jordan Work Phone: [facility] 06-10-2023 09:00-0400 Body height 179.5 cm Chair Jordan Work Phone: [facility] 06-10-2023 09:00-0400 Body weight 79.83 kg Chair Jordan Work Phone: [facility] 06-05-2023 15:27-0400 Body height 177.8 cm Michael Boykin MD Work Phone: [facility] 06-05-2023 15:27-0400 Body temperature 97.39 [degF] Michael Boykin MD Work Phone: [facility] 06-05-2023 15:27-0400 Body weight 80.56 kg Michael Boykin MD Work Phone: [facility] 06-05-2023 15:27-0400 Diastolic blood pressure 72 mm[Hg] Michael Boykin MD Work Phone: [facility] 06-05-2023 15:27-0400 Heart rate 83 /min Michael Boykin MD Work Phone: [facility] 06-05-2023 15:27-0400 Respiratory rate 16 /min Michael Boykin MD Work Phone: [facility] 06-05-2023 15:27-0400 SaO2% (BldA) [Mass fraction] 96 % Michael Boykin MD Work Phone: [facility] 06-05-2023 15:27-0400 Systolic blood pressure 129 mm[Hg] Michael Boykin MD Work Phone: [facility] 05-27-2023 14:51-0400 Body height 177.8 cm Niesha Galdamez MD Work Phone: [facility] 05-27-2023 14:51-0400 Body temperature 98.01 [degF] Niesha Galdamez MD Work Phone: [facility] 05-27-2023 14:51-0400 Body weight 80.2 kg Niesha Galdamez MD Work Phone: [facility] 05-27-2023 14:51-0400 Diastolic blood pressure 85 mm[Hg] Niesha Galdamez MD Work Phone: [facility] 05-27-2023 14:51-0400 Heart rate 90 /min Niesha Galdamez MD Work Phone: [facility] 05-27-2023 14:51-0400 Respiratory rate 18 /min Niesha Galdamez MD Work Phone: [facility] 05-27-2023 14:51-0400 SaO2% (BldA) [Mass fraction] 97 % Niesha Galdamez MD Work Phone: [facility] 05-27-2023 14:51-0400 Systolic blood pressure 144 mm[Hg] Niesha Galdamez MD Work Phone: [facility] 05-22-2023 14:58-0400 Body height 177.8 cm Michael Boykin MD Work Phone: [facility] 05-22-2023 14:58-0400 Body temperature 98.29 [degF] Michael Boykin MD Work Phone: [facility] 05-22-2023 14:58-0400 Body weight 78.74 kg Michael Boykin MD Work Phone: [facility] 05-22-2023 14:58-0400 Diastolic blood pressure 73 mm[Hg] Michael Boykin MD Work Phone: [facility] 05-22-2023 14:58-0400 Heart rate 84 /min Michael Boykin MD Work Phone: [facility] 05-22-2023 14:58-0400 Respiratory rate 16 /min Michael Boykin MD Work Phone: [facility] 05-22-2023 14:58-0400 SaO2% (BldA) [Mass fraction] 97 % Michael Boykin MD Work Phone: [facility] 05-22-2023 14:58-0400 Systolic blood pressure 120 mm[Hg] Michael Boykin MD Work Phone: [facility] 05-13-2023 10:57-0400 Body height 177.8 cm Michael Boykin MD Work Phone: [facility] 05-13-2023 10:57-0400 Body temperature 98.2 [degF] Michael Boykin MD Work Phone: [facility] 05-13-2023 10:57-0400 Body weight 79.47 kg Michael Boykin MD Work Phone: [facility] 05-13-2023 10:57-0400 Diastolic blood pressure 70 mm[Hg] Michael Boykin MD Work Phone: [facility] 05-13-2023 10:57-0400 Heart rate 75 /min Michael Boykin MD Work Phone: [facility] 05-13-2023 10:57-0400 Respiratory rate 16 /min Michael Boykin MD Work Phone: [facility] 05-13-2023 10:57-0400 SaO2% (BldA) [Mass fraction] 97 % Michael Boykin MD Work Phone: [facility] 05-13-2023 10:57-0400 Systolic blood pressure 134 mm[Hg] Michael Boykin MD Work Phone: [facility] 04-29-2023 13:13-0400 Blood Pressure Location Chiquita RIVERA [facility] 04-29-2023 13:13-0400 Diastolic blood pressure 76 mm[Hg] Chiquita RVIERA [facility] 04-29-2023 13:13-0400 Heart rate 72 /min Chiquita RIVERA [facility] 04-29-2023 13:13-0400 Respiratory rate 16 /min Chiquita RIVERA [facility] 04-29-2023 13:13-0400 Systolic blood pressure 122 mm[Hg] Chiquita RIVERA General Surgery [place] Encounters Encounter Date Encounter Type Care Provider Facility Start: 07-19-2024 End: 07-19-2024 ambulatory MICHAEL BOYKIN Facility:[facility] Comment on above: 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) (Primary Dx); Lymphedema Start: 07-19-2024 End: 07-19-2024 Patient encounter procedure Michael Boykin MD Work Phone: Hematology/Oncology Start: 07-14-2024 End: 07-14-2024 ambulatory Chiquita RIVERA Facility[facility] Start: 07-14-2024 End: 07-14-2024 Patient encounter [facility] Start: 07-07-2024 End: 07-07-2024 ambulatory JUANPABLO VARELA Facility:[facility] Start: 07-07-2024 End: 07-07-2024 Subsequent hospital visit by physician Arrival Time Radiology Work Phone: Radiology [facility] Comment on above: 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) [C83.38] Start: 06-23-2024 End: 06-23-2024 ambulatory Chiquita RIVERA Facility:[id number] Start: 06-17-2024 End: 06-17-2024 Patient encounter procedure Michael Boykin MD Work Phone: Hematology/Oncology Start: 06-17-2024 End: 06-17-2024 ambulatory Lab/[place] Ortega Work Phone: Hematology/Oncology Comment on above: 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) 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) (Primary Dx); Lymphedema Start: 06-08-2024 End: 06-08-2024 ambulatory Chiquita RIVERA Facility: [facility] Start: 06-08-2024 End: 06-08-2024 Patient encounter procedure Chiquita RIVERA [facility] General Surgery [place] Start: 06-02-2024 Telephone encounter Mitra BARBA Work Phone: Psychiatry Comment on above: Referral / [facility] Ivan ballard Counselors Start: 05-17-2024 Telephone encounter Ivania frias RN Work Phone: Hematology/Oncology Comment on above: Felt Finisher - O ther (Appointment) Start: 05-13-2024 End: 05-13-2024 ambulatory Lab [facility] [facility] [place] [facility] [...] Start: 05-07-2024 End: 05-07-2024 ambulatory NIESHA GALDAMEZ Facility:[facility] Start: 05-07-2024 End: 05-07-2024 Subsequent hospital visit by physician Arrival Time Radiology Work Phone: Radiology [facility] Comment on above: Diffuse large B-cell lymphoma, unspecified body region (HCC) [C83.30] Start: 05-03-2024 Telephone encounter Danielle patel RN Hematology/Oncology Comment on above: Patient Update (Week ly Labs) Start: 05-03-2024 End: 05-03-2024 ambulatory NA ENGELER Facility:[facility] Start: 04-30-2024 Telephone encounter Danielle patel RN Hematology/Oncology Comment on above: Patient Update Start: 04-23-2024 End: 04-23-2024 Patient encounter procedure Nabilarufus Chery APRN.ELECTRICAL CONSTRUCTION PROJECT MANAGER Work Phone: Hematology/Oncology Start: 04-23-2024 End: 04-23-2024 [...] imbalance Start: 04-14-2024 Emergency department patient visit NA AVERY Facility:[facility] Start: 04-14-2024 Telephone encounter Cecil castañeda MD Work Phone: Pulmonary Medicine Comment on above: Returning Patient's Call Start: 04-07-2024 End: 04-07-2024 Evaluation and management of inpatient DANIELLE WINTER Facility:[facility] Start: 04-06-2024 Orders Only Niesha Galdamez MD [...] Phone: Hematology/Oncology Start: 03-26-2024 ambulatory Priyanka Echols [facility] tology/Oncology Start: 03-25-2024 End: 03-25-2024 ambulatory NIESHA GALDAMEZ Facility:[facility] Start: 03-25-2024 End: 03-25-2024 Subsequent hospital visit by physician Arrival Time Radiology Work Phone: Radiology [facility] Comment on above: 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) [C83.35] Start: 03-22-2024 End: 03-22-2024 ambulatory Tristen VARELA Facility:[facility] Start: 03-22-2024 End: 03-22-2024 Patient encounter procedure Tristen Varela MD Work Phone: Radiation Oncology Comment on above: Follicular lymphoma grade IIIa, unspecified body region (HCC) (Primary Dx) Start: 03-22-2024 Radiation Oncology Note Tristen Varela MD Work Phone: Radiation Oncology Comment on above: Completion Note Start: 03-19-2024 End: 03-19-2024 Social Work Merced ACEVEDO Hematology/Oncology Start: 03-18-2024 End: 03-18-2024 ambulatory JUANPABLO VARELA Facility:[facility] Start: 03-17-2024 End: 03-17-2024 ambulatory JUANPABLO VARELA Facility:[facility] Start: 03-16-2024 End: 03-16-2024 ambulatory Tristen VARELA Facility:[facility] Start: 03-16-2024 End: 03-16-2024 Patient encounter procedure Tristen Varela MD Work Phone: Radiation Oncology Comment on above: Follicular lymphoma grade IIIa, unspecified body region (HCC) (Primary Dx) Start: 03-15-2024 End: 03-15-2024 ambulatory Sandra Mayen RN Radiation Oncology Comment on above: Patient Education Start: 03-15-2024 End: 03-15-2024 Patient encounter procedure Tristen Varela MD Work Phone: Radiation Oncology Comment on above: Follicular lymphoma grade IIIa, unspecified body region (HCC) (Primary Dx) Start: 03-15-2024 Radiation Oncology Note Tristen Varela MD Work Phone: Radiation Oncology Comment on above: Simulation Note Treatment Planning Start: 03-15-2024 End: 03-15-2024 Subsequent hospital visit by physician Tristen Varela MD Work Phone: Radiology [facility] Start: 03-13-2024 Telephone encounter Tabitha Montana MD Work Phone: Hematology/Oncology Start: 03-10-2024 Telephone encounter Noah slater RN Work Phone: Hematology/Oncology Start: 03-09-2024 End: 03-09-2024 ambulatory [facility] Work Phone: Hematology/Oncology Comment on above: 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) (Primary Dx) Start: 03-09-2024 End: 03-09-2024 ambulatory CHIQUITA MORGANEN Facility:[facility] Start: 03-08-2024 End: 03-09-2024 Patient encounter procedure [...] MD Work Phone: Hematology/Oncology Comment on above: Felt Finisher - O ther (Next Steps) Diffuse large [...] encounter procedure Niesha Galdamez MD Work Phone: [facility] Start: 02-02-2024 End: 02-02-2024 Patient encounter procedure Michael Boykin MD Work Phone: [facility] Start: 02-02-2024 End: 02-02-2024 ambulatory Brit Arzola MA [facility] [place] Comment on above: Population Health Na vigation Outreach (ACO NO PCP) 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); History of follicular lymphoma Start: 01-30-2024 End: 01-30-2024 ambulatory NIESHA GALDAMEZ Facility:[facility] Start: 01-30-2024 End: 01-30-2024 Subsequent hospital visit by physician Arrival Time Radiology Work Phone: Radiology Pet CT Comment on above: Diffuse large B-cell lymphoma, unspecified body region (HCC) [C83.30] Start: 01-28-2024 ambulatory SELF SELF Facility:[facility] Start: 01-28-2024 End: 01-29-2024 Office outpatient new 60 minutes Dorcas Bolanos MD Work Phone: Division of Hematology & Oncology at [facility] Comment on above: Diffuse large B-cell lymphoma, unspecified body region Start: 01-27-2024 Telephone encounter Radha womack RN Work Phone: Hematology/Oncology Comment on above: Patient Update (Init ial CAR-T phone call) Start: 01-23-2024 ambulatory Radha Peng RN Work Phone: Hematology/Oncology Comment on above: CAR-T Therapy Start: 01-23-2024 E-mail encounter fro m caregiver Radha Peng RN Work Phone: [facility] Start: 01-16-2024 End: 01-16-2024 ambulatory Niesha Galdamez MD Work Phone: Hematology/Oncology Comment on above: 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) (Primary Dx) Start: 01-16-2024 End: 01-16-2024 Telemedicine consultation with patient Niesha Galdamez MD Work Phone: [facility] Start: 01-14-2024 Telephone encounter Ivania [...] encounter procedure Niesha Galdamez MD Work Phone: [facility] Start: 12-30-2023 End: 12-30-2023 ambulatory MICHAEL BOYKIN Facility:[facility] Start: 12-30-2023 End: 12-30-2023 Patient encounter procedure Tristen Varela MD Work Phone: Radiation Oncology Comment [...] Start: 12-17-2023 End: 12-17-2023 ambulatory Chiquita RIVERA Facility:[facility] Start: 12-15-2023 Telephone encounter Michael parker MD Work Phone: [facility] Comment on above: Future Appointment Start: 12-09-2023 End: 12-09-2023 ambulatory Michael Boykin Facility:[facility] Start: 11-20-2023 End: 11-20-2023 ambulatory MICHAEL BOYKIN Facility:[facility] Start: 11-18-2023 End: 11-18-2023 ambulatory CLEO FELIZ Facility:[facility] Start: 11-18-2023 End: 11-18-2023 Subsequent hospital visit by physician Arrival Time Radiology Work Phone: Radiology [facility] CT Comment on above: Diffuse large B-cell lymphoma, unspecified body region (HCC) [C83.30] Start: 10-29-2023 End: 10-29-2023 ambulatory MICHAEL BOYKIN Facility:[facility] Start: 10-28-2023 End: 10-28-2023 ambulatory MICHAEL BOYKIN Facility:[facility] Start: 10-23-2023 Telephone encounter Michael parker MD Work Phone: Hematology/Oncology Comment on above: Lab Orders Start: 10-01-2023 End: 10-01-2023 ambulatory Chair 10 Raphine Work Phone: Hematology/Oncology Comment on above: 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) Start: 09-30-2023 End: 10-01-2023 ambulatory Lab/[place] Raphine Work Phone: Hematology/Oncology Comment on above: 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) Start: 09-23-2023 End: 09-23-2023 ambulatory MICHAEL BOYKIN Facility:[facility] Start: 09-23-2023 End: 09-23-2023 Subsequent hospital visit by physician Arrival Time Radiology Work Phone: Radiology [facility] Comment on above: 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) [C82.38] Start: 09-03-2023 End: 09-03-2023 ambulatory Chair 10 Raphine Work Phone: Hematology/Oncology Comment on above: 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) Start: 09-02-2023 End: 09-02-2023 Patient encounter procedure Michael Boykin MD Work Phone: [employer] Start: 09-02-2023 End: 09-02-2023 ambulatory Michael Boykin MD Work Phone: Hematology/Oncology Comment on above: 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) Start: 08-06-2023 End: 08-06-2023 ambulatory MICHAEL BOYKIN Facility:[facility] Start: 08-05-2023 End: 08-06-2023 ambulatory Lab/[place] Work Phone: Hematology/Oncology Comment on above: 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) Start: 08-04-2023 Telephone encounter Cleo pacheco APRN.CNP Work Phone: Hematology/Oncology Comment on above: Lab Orders Start: 07-22-2023 End: 07-22-2023 ambulatory Lab/[place] Raphine Work Phone: Hematology/Oncology Comment on above: Grade [...] Start: 07-08-2023 End: 07-08-2023 ambulatory Lab[facility] Raphine Work Phone: Hematology/Oncology Comment on above: Grade [...] Start: 06-19-2023 End: 06-19-2023 ambulatory Lab[facility] Raphine Work Phone: Hematology/Oncology Comment on above: 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) Start: 06-17-2023 End: 06-17-2023 Patient encounter procedure [...] RN Work Phone: Hematology/Oncology Comment on above: Felt Finisher - O ther (Uric Acid Results) Felt Finisher - O ther (Medication Problem) Start: 06-05-2023 End: 06-05-2023 Patient encounter procedure Michael Boykin MD Work Phone: [employer] Start: 06-05-2023 End: 06-05-2023 ambulatory Lab/[place] [...] MD Work Phone: Hematology/Oncology Comment on above: Felt Finisher - O ther Start: 05-27-2023 End: 05-28-2023 ambulatory Niesha Galdamez MD Work Phone: Hematology/Oncology Comment on above: History of diffuse l arge B-cell lymphoma (Primary Dx); 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); 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) Start: 05-27-2023 End: 05-28-2023 Patient encounter procedure Niesha Galdamez MD Work Phone: [facility] Start: 05-23-2023 Telephone encounter Michael parker MD Work Phone: [facility] Comment on above: Appointment Start: 05-22-2023 End: 05-22-2023 ambulatory Michael Boykin MD Work Phone: Hematology/Oncology Comment on above: 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) (Primary Dx) Start: 05-22-2023 End: 05-22-2023 Patient encounter procedure Michael Boykin MD Work Phone: [place] Start: 05-21-2023 Telephone encounter Ivania frias RN Work Phone: Hematology/Oncology Comment on above: Care Coordination (P athology Update) Start: 05-19-2023 Telephone encounter Ivania frias RN Work Phone: Hematology/Oncology Comment on above: Care Coordination (P athology Results) Start: 05-16-2023 Telephone encounter Michael parker MD Work Phone: [facility] Comment on above: 2nd opinion path Start: [...] 04-29-2023 End: 04-29-2023 Patient encounter procedure Chiquita RIVERA General Surgery [facility] Anguiano Start: 04-02-2023 End: 04-03-2023 ambulatory [facility] Start: 04-02-2023 End: 04-02-2023 Subsequent hospital visit by physician [facility] Comment on above: Non-Hodgkin's lympho ma, unspecified body region, unspecified non-Hodgkin lymphoma type (HCC); Hypothyroidism, unspecified type Start: 04-05-2021 End: 04-05-2021 Subsequent hospital visit by physician [facility] Comment on above: Non-Hodgkin's lympho ma, unspecified body region, unspecified non-Hodgkin lymphoma type (HCC); Hypothyroidism, unspecified type Start: 04-17-2020 End: 04-17-2020 Subsequent hospital visit by physician [facility] Lab Drawing Room [facility] Comment on above: Non-Hodgkin's lympho ma, unspecified body region, unspecified non-Hodgkin lymphoma type (HCC); Hypothyroidism, unspecified type; Encounter for screening for lung cancer Procedures Date Procedure Procedure Detail Performing Clinician Start: 07-07-[address] atten uation skull base mid-thigh Michael Boykin MD Work Phone: Start: 07-07-2024 End: 07-07-2024 Blood count complete auto&auto difrntl wbc Nabila Chery GRAB DRIVER.ELECTRICAL CONSTRUCTION PROJECT MANAGER Work Phone: Start: 06-23-2024 Colonoscopy Chiquita MONTAGUE Start: 06-17-2024 Blood count complete auto&auto difrntl wbc Michael Boykin MD Work Phone: Start: 05-13-2024 Blood count complete auto&auto difrntl wbc Niesha Galdamez MD Work Phone: Start: 05-13-2024 C-reactive protein Haris Galdamez MD Work Phone: Start: 05-07-[address] atten uation skull base mid-thigh Niesha Galdamez MD Work Phone: Start: 05-07-2024 Gluc bld gluc mntr d ev cleared fda spec home use [facility] Provider Start: 04-23-2024 Antibody screen JUANPABLO DINERO Comment on above: Order Comment: Speci men Type: BLOOD SPECIMENOrdering Facility: [facility] Address: [address] [place] [address] Performed By: #### T SCR ####CC MAIN BLOOD BANKCLIA [id number] [address] Start: 04-23-2024 End: 04-23-2024 Antibody screen rbc each serum technique Niesha Galdamez MD Work Phone: Start: 04-23-2024 CBC + DIFF Niesha diaz MD Work Phone: Start: 04-23-2024 End: 04-23-2024 Comprehensive metabolic panel Niesha aGldamez MD Work Phone: Start: 04-14-2024 Antibody screen JUANPABLO DINERO Comment on above: Order Comment: Speci men Type: BLOOD SPECIMENOrdering Facility: [facility] Address: [address] [place] [address] Performed By: #### T SCR ####CC MAIN BLOOD BANKCLIA [id number] [address] Start: 04-11-2024 Antibody screen JUANPABLO DINERO Comment on above: Order Comment: Speci men Type: BLOOD SPECIMENOrdering Facility: [facility] Address: [address] [place] [address] Performed By: #### T SCR ####CC MAIN BLOOD BANKCLIA [id number] [address] Start: 04-08-2024 Antibody screen JUANPABLO DINERO Comment on above: Order Comment: Speci men Type: BLOOD SPECIMENOrdering Facility: [facility] Address: [address] [place] [address] Performed By: #### T SCR ####CC MAIN BLOOD BANKCLIA [id number] [address] Start: 04-06-2024 Antibody screen NA KASSI DINERO Comment on above: Order Comment: Speci men Type: BLOOD SPECIMENOrdering Facility: [facility] Address: [address] [place] [address] Performed By: #### T SCR ####CC MAIN BLOOD BANKCLIA [id number] [address] Start: 04-01-2024 Blood count complete auto&auto difrntl wbc Niseha Galdamez MD Work Phone: Start: 03-25-[address] atten uation skull base mid-thigh Niesha Galdamez MD Work Phone: Start: 03-25-2024 Gluc bld gluc mntr d ev cleared fda spec home use [facility] Provider Start: 03-09-2024 Bilirubin direct Namrata Roy MD Work Phone: Start: 03-09-2024 C-reactive protein Giana Roy MD Work Phone: Start: 03-08-2024 Blood count complete auto&auto difrntl wbc Niesha Galdamez MD Work Phone: Start: 03-08-2024 C-reactive protein Haris Galdamez MD Work Phone: Start: 02-24-2024 Echocardiography NA ENG ELER Start: 02-24-2024 Antibody screen NA KASSI DINERO Comment on above: Order Comment: Speci men Type: BLOOD SPECIMENOrdering Facility: [facility] Address: [address] [place] [address] Performed By: #### T SCR ####CC MAIN BLOOD BANKCLIA [id number] [address] [place] Start: 02-24-2024 Antibody screen rbc each serum technique Niesha Galdamez MD Work Phone: Start: 02-24-2024 D-DIMER Niesha diaz MD Work Phone: Start: 02-24-2024 Thromboplastin time partial plasma/whole blood Niesha Galdamez MD Work Phone: Start: 01-30-[address] atten uation skull base mid-thigh Niesha Galdamez MD Work Phone: Start: 01-30-2024 Gluc bld gluc mntr d ev cleared fda spec home use [facility] Provider Start: 01-28-2024 Comprehensive metabo lic panel Patti Isidro GRAB DRIVER-ELECTRICAL CONSTRUCTION PROJECT MANAGER Work Phone: Start: 01-28-2024 Hepatitis b surf ant ibody hbsab Patti Isidro GRAB DRIVER-ELECTRICAL CONSTRUCTION PROJECT MANAGER Work Phone: Start: 01-28-2024 Iaad ia hiv-1 ag w/h iv-1 & hiv-2 antbdy single Patti Isidro GRAB DRIVER-ELECTRICAL CONSTRUCTION PROJECT MANAGER Work Phone: Start: 12-25-2023 Blood count complete auto&auto difrntl wbc Michael Boykin MD Work Phone: Start: 12-17-2023 Excision of inguinal lymph nodes Chiquita RIVERA Start: 11-18-[address] atten uation skull base mid-thigh Cleo Feliz GRAB DRIVER.ELECTRICAL CONSTRUCTION PROJECT MANAGER Work Phone: Start: 11-18-2023 End: 11-18-2023 Blood count complete auto&auto difrntl wbc Cleo Feliz GRAB DRIVER.ELECTRICAL CONSTRUCTION PROJECT MANAGER Work Phone: Start: 09-30-2023 Blood count complete auto&auto difrntl wbc Michael Boykin MD Work Phone: Start: 09-23-[address] atten uation skull base mid-thigh Michael Boykin MD Work Phone: Start: 09-23-2023 Gluc bld gluc mntr d ev cleared fda spec home use [facility] Provider Start: 08-05-2023 Blood count complete auto&auto difrntl [...] Mendoza Work Phone: Start: 01-28-2002 Thoracentesis Chiquita N ILL Start: 01-20-2002 Bronchoscopy Chiquita NJ LL Biopsy of lymph node Chiquita RIVERA Plan of Treatment Date Care Activity Detail Author Start: 07-07-2027 Diabetes Screening Diabetes Screenin [facility] Start: 06-17-2027 Diabetes Screening Diabetes Screenin g [facility] Start: 05-13-2027 Diabetes Screening Diabetes Screenin g [facility] Start: 05-03-2027 Diabetes Screening Diabetes Screenin g [facility] Start: 04-23-2027 Diabetes Screening Diabetes Screenin g [facility] Start: 04-14-2027 Diabetes Screening Diabetes Screenin g [facility] Start: 04-06-2027 Diabetes Screening Diabetes Screenin g [facility] Start: 04-01-2027 Diabetes Screening Diabetes Screenin g [facility] Start: 03-09-2027 Diabetes Screening Diabetes Screenin g [facility] Start: 03-08-2027 Diabetes Screening Diabetes Screenin g [facility] Start: 02-23-2027 Diabetes Screening Diabetes Screenin g [facility] Start: 01-27-2027 Diabetes Screening Diabetes Screenin g [facility] Start: 12-25-2026 Diabetes Screening Diabetes Screenin g [facility] Start: 11-18-2026 Diabetes Screening Diabetes Screenin g [facility] Start: 09-30-2026 Diabetes Screening Diabetes Screenin g [facility] Start: 09-02-2026 Diabetes Screening Diabetes Screenin tristen [facility] Start: 08-05-2026 Diabetes Screening Diabetes Screenin g [facility] Start: 07-22-2026 Diabetes Screening Diabetes Screenin g [facility] Start: 07-08-2026 DIABETES SCREEN DIABETES SCREEN [facility] Start: 06-19-2026 DIABETES SCREEN DIABETES SCREEN [facility] Start: 06-05-2026 DIABETES SCREEN DIABETES SCREEN [facility] Start: 05-13-2026 DIABETES SCREEN DIABETES SCREEN [facility] Start: 10-18-2024 End: 10-18-2024 Follow-up encounter Hematology/Oncology Comment on above: 3 month follow up [facility] lab port draw and flush Start: 07-19-2024 End: 10-18-2024 CBC W Auto Differential panel - Blood COMPLETE BLOOD COUNT AND DIFFERENTIAL Lab Routine 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) Expected: 07/19/2024, Expires: 10/18/2024 [facility] Work Phone: Comment on above: Expected: 07/19/2024 , Expires: 10/18/2024 Start: 07-19-2024 End: 10-18-2024 Comprehensive metabolic 2000 panel - Serum or Plasma COMPREHENSIVE METABOLIC PANEL Lab Routine 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) Expected: 07/19/2024, Expires: 10/18/2024 [facility] Comment on above: Expected: 07/19/2024 , Expires: 10/18/2024 Start: 07-19-2024 End: 07-19-2024 Follow-up encounter 07/19/2024 9:30 AM EDT Visit (SP) Office Hematology/Oncology [address] [place] [address] Michael Boykin MD [address] [place] [address] follow up after pet scan and lab Hematology/Oncology Comment on above: follow up after pet scan and lab Start: 07-07-2024 End: 07-07-2024 Patient encounter procedure 07/07/2024 12:15 PM EDT Appointment Radiology Pet CT [address] [place] [address] Pet scan and lab in [address] Comment on above: Pet scan and lab in 3 weeks Start: 07-04-2024 Influenza vaccination O [facility] Start: 06-17-2024 End: 06-17-2024 Telephone follow-up 06/17/2024 3:00 PM EDT Visit (SP) Office Hematology/Oncology [address] [place] [address] Michael Boykin MD [address] [facility] [place] [address] lab & 2 month follow up from CAR-T infusion per phone encounter-date & time ok'd by [facility] Hematology/Oncology Comment on above: lab & 2 month follow up from CAR-T infusion per phone encounter-date & time ok'd by [facility] Start: 06-17-2024 End: 06-17-2024 Patient encounter procedure 06/17/2024 2:45 PM EDT Office Visit [facility] [address] [place] [address] lab & 2 month follow up from CAR-T infusion per phone encounter-date & time ok'd by [facility] Comment on above: lab & 2 month follow up from CAR-T infusion per phone encounter-date & time ok'd by Adry Start: 05-13-2024 End: 08-12-2024 C reactive protein [Mass/volume] in Serum or Plasma C-REACTIVE PROTEIN Lab Routine Diffuse large B-cell lymphoma, unspecified body region (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 Expected: 05/13/2024, Expires: 08/12/2024 [facility] Comment on above: Expected: 05/13/2024 , Expires: 08/12/2024 Start: 05-13-2024 End: 08-12-2024 CBC W Auto Differential panel - Blood COMPLETE BLOOD COUNT AND DIFFERENTIAL Lab Routine Diffuse large B-cell lymphoma, unspecified body region (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 Expected: 05/13/2024, Expires: 08/12/2024 [facility] Comment on above: Expected: 05/13/2024 , Expires: 08/12/2024 Start: 05-13-2024 End: 08-12-2024 Comprehensive metabolic 2000 panel - Serum or Plasma COMPREHENSIVE METABOLIC PANEL Lab Routine Diffuse large B-cell lymphoma, unspecified body region (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 Expected: 05/13/2024, Expires: 08/12/2024 [facility] Comment on above: Expected: 05/13/2024 , Expires: 08/12/2024 Start: 05-13-2024 End: 08-12-2024 CYTOMEGALOVIRUS (CMV) DNA, QUANTITATIVE PCR, PLASMA [facility] Comment on above: Expected: 05/13/2024 , Expires: 08/12/2024 Start: 05-13-2024 End: 08-12-2024 Ferritin [Mass/volume] in Serum or Plasma FERRITIN Lab Routine Diffuse large B-cell lymphoma, unspecified body region (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 Expected: 05/13/2024, Expires: 08/12/2024 [facility] Comment on above: Expected: 05/13/2024 , Expires: 08/12/2024 Start: 05-13-2024 End: 08-12-2024 Immunodeficiency panel - Blood by Flow cytometry (FC) [facility] Comment on above: Expected: 05/13/2024 , Expires: 08/12/2024 Start: 05-13-2024 End: 08-12-2024 IMMUNOGLOBULINS,IGG,IGA,I GM [facility] Comment on above: Expected: 05/13/2024 , Expires: 08/12/2024 Start: 05-13-2024 End: 08-12-2024 Lactate dehydrogenase [Enzymatic activity/volume] in Serum or Plasma LACTATE DEHYDROGENASE Lab Routine Diffuse large B-cell lymphoma, unspecified body region (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 Expected: 05/13/2024, Expires: 08/12/2024 [facility] Comment on above: Expected: 05/13/2024 , Expires: 08/12/2024 Start: 05-13-2024 End: 08-12-2024 Magnesium [Mass/volume] in Serum or Plasma MAGNESIUM Lab Routine Diffuse large B-cell lymphoma, unspecified body region (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 Expected: 05/13/2024, Expires: 08/12/2024 [facility] Comment on above: Expected: 05/13/2024 , Expires: 08/12/2024 Start: 05-13-2024 End: 08-12-2024 Phosphate [Mass/volume] in Serum or Plasma PHOSPHORUS INORGANIC Lab Routine Diffuse large B-cell lymphoma, unspecified body region (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 Expected: 05/13/2024, Expires: 08/12/2024 [facility] Comment on above: Expected: 05/13/2024 , Expires: 08/12/2024 Start: 05-13-2024 End: 05-13-2024 ambulatory Hematology/Oncology Comment on above: DLBCL/C83.38 Start: 05-13-2024 End: 05-13-2024 Patient encounter procedure Infectious Disease Comment on above: POST BMT REVACCINATI ON ASSESSMENT DLBCL/C83.38 Start: 05-07-2024 End: 05-07-2024 Patient encounter procedure 05/07/2024 12:00 PM EDT Appointment Radiology Pet CT [address] [place] [address] [place] [address] Comment on above: [facility] Start: 05-03-2024 End: 05-03-2024 Patient encounter procedure 05/03/2024 10:15 AM EDT Office Visit [facility] [address] [place] [address] [place] [address] [facility] Comment on above: lab Start: 04-23-2024 End: 07-23-2024 RUBEOLA (MEASLES)IGG [facility] Comment on above: Expected: 04/23/2024 , Expires: 07/23/2024 Start: 04-23-2024 End: 07-23-2024 VARICELLA ZOSTER IGG [facility] Work Phone: Comment on above: Expected: 04/23/2024 , Expires: 07/23/2024 Start: 04-16-2024 End: 04-16-2024 ambulatory Hematology/Oncology Comment on above: DLBCL/C83.38 Start: 04-06-2024 Subsequent hospital visit by physician 04/06/2024 Hospital Encounter HOSP MAIN G110 [address] [place] [address] [place] [address] [place] [address] Diffuse large B-cell lymphoma, unspecified site [C83.30] HOSP MAIN G110 Comment on above: Diffuse large B-cell lymphoma, unspecified site [C83.30] Start: 04-06-2024 End: 04-06-2024 Patient encounter procedure 04/06/2024 7:30 AM EDT Office Visit Admitting [address] [place] [address] DLBCL Admitting Comment on above: DLBCL Start: 04-03-2024 End: 04-03-2024 ambulatory 04/03/2024 7:30 AM EDT Infusion Center Hematology/Oncology [address] [place] [address] DLBCL/C83.38 Hematology/Oncology Comment on above: DLBCL/C83.38 Start: 04-02-2024 End: 04-02-2024 ambulatory 04/02/2024 10:15 AM EDT Infusion Center Hematology/Oncology [address] [place] [address] DLBCL/C83.38 Hematology/Oncology Comment on above: DLBCL/C83.38 Start: 04-01-2024 End: 04-01-2024 ambulatory Hematology/Oncology Comment on above: DLBCL DLBCL/C83.38 Start: 04-01-2024 End: 04-01-2024 ambulatory 04/01/2024 8:20 AM [facility] Hematology/Oncology [address] [place] [address] DLBCL/C83.38 Hematology/Oncology Comment on above: DLBCL/C83.38 Start: 03-31-2024 End: 06-30-2024 Bilirubin.total [Mass/volume] in Serum or Plasma BILIRUBIN TOTAL BLD Lab Routine 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) Expected: 03/31/2024, Expires: 06/30/2024 [facility] Work Phone: Comment on above: Expected: 03/31/2024 , Expires: 06/30/2024 Start: 03-31-2024 End: 06-30-2024 C reactive protein [Mass/volume] in Serum or Plasma C-REACTIVE PROTEIN Lab Routine 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) Expected: 03/31/2024, Expires: 06/30/2024 [facility] Work Phone: Comment on above: Expected: 03/31/2024 , Expires: 06/30/2024 Start: 03-31-2024 End: 06-30-2024 CBC W Auto Differential panel - Blood COMPLETE BLOOD COUNT AND DIFFERENTIAL Lab Routine 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) Expected: 03/31/2024, Expires: 06/30/2024 [facility] Work Phone: Comment on above: Expected: 03/31/2024 , Expires: 06/30/2024 Start: 03-31-2024 End: 06-30-2024 Comprehensive metabolic 2000 panel - Serum or Plasma COMPREHENSIVE METABOLIC PANEL Lab Routine 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) Expected: 03/31/2024, Expires: 06/30/2024 [facility] Work Phone: Comment on above: Expected: 03/31/2024 , Expires: 06/30/2024 Start: 03-31-2024 End: 06-30-2024 Lactate dehydrogenase [Enzymatic activity/volume] in Serum or Plasma LACTATE DEHYDROGENASE Lab Routine 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) Expected: 03/31/2024, Expires: 06/30/2024 [facility] Work Phone: Comment on above: Expected: 03/31/2024 , Expires: 06/30/2024 Start: 03-31-2024 End: 06-30-2024 Phosphate [Mass/volume] in Serum or Plasma PHOSPHORUS INORGANIC Lab Routine 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) Expected: 03/31/2024, Expires: 06/30/2024 [facility] Work Phone: Comment on above: Expected: 03/31/2024 , Expires: 06/30/2024 Start: 03-31-2024 End: 06-30-2024 Urate [Mass/volume] in Serum or Plasma URIC ACID Lab Routine 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) Expected: 03/31/2024, Expires: 06/30/2024 [facility] Work Phone: Comment on above: Expected: 03/31/2024 , Expires: 06/30/2024 Start: 03-31-2024 End: 03-31-2024 Patient encounter procedure Molecular Imaging Comment on above: NM PET/CT SKULL-THIG H SUB Start: 03-22-2024 End: 03-22-2024 Patient encounter procedure Radiation Oncology Comment on above: Pelvis Location: [facility]ORT[facility] TMENT REV Start: 03-19-2024 End: 03-19-2024 Patient encounter procedure 03/19/2024 3:15 PM EDT Appointment Radiation Oncology [address] [place] [address] [place] [address] Pelvis Radiation Oncology Comment on above: Pelvis Start: 03-18-2024 End: 03-18-2024 Patient encounter procedure 03/18/2024 1:30 PM EDT Appointment Radiation Oncology [address] [place] [address] [place] [address] Pelvis Radiation Oncology Comment on above: Pelvis Start: 03-17-2024 End: 03-17-2024 Patient encounter procedure 03/17/2024 9:45 AM EDT Appointment Radiation Oncology [address] [facility] [place] [address] Pelvis Radiation Oncology Comment on above: Pelvis [...] 03/09/2024 9:30 AM EDT Infusion Center Hematology/Oncology [address] [place] [id number] DLBCL/C83.38 Hematology/Oncology Comment on above: DLBCL/C83.38 Start: 03-09-2024 End: 03-09-2024 Admission to same day surgery center 03/09/2024 7:30 AM EDT - 03/09/2024 9:30 AM EDT Surgery Angio [address] [place] [address] IDENTITY MANAGEMENT DEVELOPER [address] [place] [address] INSERTION NON-TUNNELED CV CATHETER OVER AGE 5 Angio Comment on above: INSERTION NON-TUNNEL ED CV CATHETER OVER AGE 5 Start: 03-09-2024 Subsequent hospital visit by physician 03/09/2024 7:30 AM EDT Hospital Encounter Angio [address] [place] [address] IDENTITY MANAGEMENT DEVELOPER [address] [place] [address] 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) [C83.38] Angio Comment on above: 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) [C83.38] Start: 03-09-2024 End: 03-09-2024 Insj non-tunneled central venous cath age 6 yr/> [facility] ANGIO HB6 Start: 03-08-2024 End: 03-08-2024 ambulatory Hematology/Oncology Comment on above: DLBCL DLBCL/C83.38 Start: 03-08-2024 End: 06-07-2024 BLOOD TB SCREEN [facility] Work Phone: Comment on above: Expected: 03/08/2024 , Expires: 06/07/2024 Start: 02-24-2024 End: 02-24-2024 Patient encounter procedure 02/24/2024 2:30 PM EDT Office Visit Cardiology [address] [place] [address] Diffuse large B-cell lymphoma of lymph nodes [...] multiple regions (HCC) Expected: 02/24/2024, Expires: 05/25/2024 [facility] Work Phone: Comment on above: Expected: 02/24/2024 , Expires: 05/25/2024 Start: 02-24-2024 End: 05-25-2024 BLOOD TB SCREEN [facility] Work Phone: Comment on above: Expected: 02/24/2024 , Expires: 05/25/2024 Start: 02-24-2024 End: 05-25-2024 CBC W Auto Differential panel - Blood COMPLETE BLOOD COUNT AND DIFFERENTIAL Lab Routine 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) Expected: 02/24/2024, Expires: 05/25/2024 [facility] Work Phone: Comment on above: Expected: 02/24/2024 , Expires: 05/25/2024 Start: 02-24-2024 End: 05-25-2024 Comprehensive metabolic 2000 panel - Serum or Plasma COMPREHENSIVE METABOLIC PANEL Lab Routine 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) Expected: 02/24/2024, Expires: 05/25/2024 [facility] Work Phone: Comment on above: Expected: 02/24/2024 , Expires: 05/25/2024 Start: 02-24-2024 End: 05-25-2024 Erythrocyte sedimentation rate SEDIMENTATION RATE, WESTERGREN Lab Routine 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) Expected: 02/24/2024, Expires: 05/25/2024 [facility] Work Phone: Comment on above: Expected: 02/24/2024 , Expires: 05/25/2024 Start: 02-24-2024 End: 05-25-2024 Fibrin D-dimer FEU [Mass/volume] in Platelet poor plasma D-DIMER Lab Routine 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) Expected: 02/24/2024, Expires: 05/25/2024 [facility] Work Phone: Comment on above: Expected: 02/24/2024 , Expires: 05/25/2024 Start: 02-24-2024 End: 05-25-2024 Fibrinogen [Mass/volume] in Platelet poor plasma by Coagulation assay FIBRINOGEN Lab Routine 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) Expected: 02/24/2024, Expires: 05/25/2024 [facility] Work Phone: Comment on above: Expected: 02/24/2024 , Expires: 05/25/2024 Start: 02-24-2024 End: 05-25-2024 Hepatitis B virus surface Ab [Presence] in Serum HEPATITIS B SURFACE ANTIBODY Lab Routine 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) Expected: 02/24/2024, Expires: 05/25/2024 [facility] Work Phone: Comment on above: Expected: 02/24/2024 , Expires: 05/25/2024 Start: 02-24-2024 End: 05-25-2024 IDM PANEL ADULT [facility] Work Phone: Comment on above: Expected: 02/24/2024 , Expires: 05/25/2024 Start: 02-24-2024 End: 05-25-2024 IMMUNOGLOBULINS,IGG,IGA,I GM IMMUNOGLOBULINS,IGG,IGA ,IGM Lab Routine 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) Expected: 02/24/2024, Expires: 05/25/2024 [facility] Work Phone: Comment on above: Expected: 02/24/2024 , Expires: 05/25/2024 Start: 02-24-2024 End: 05-25-2024 Lactate dehydrogenase [Enzymatic activity/volume] in Serum or Plasma LACTATE DEHYDROGENASE Lab Routine 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) Expected: 02/24/2024, Expires: 05/25/2024 [facility] Work Phone: Comment on above: Expected: 02/24/2024 , Expires: 05/25/2024 Start: 02-24-2024 End: 05-25-2024 Magnesium [Mass/volume] in Serum or Plasma MAGNESIUM Lab Routine 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) Expected: 02/24/2024, Expires: 05/25/2024 [facility] Work Phone: Comment on above: Expected: 02/24/2024 , Expires: 05/25/2024 Start: 02-24-2024 End: 05-25-2024 PT panel - Platelet poor plasma by Coagulation assay PROTHROMBIN TIME Lab Routine Personal history of diseases of blood and blood-forming organs 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) Expected: 02/24/2024, Expires: 05/25/2024 [facility] Work Phone: Comment on above: Expected: 02/24/2024 , Expires: 05/25/2024 Start: 02-24-2024 End: 05-25-2024 TYPE + SCREEN TYPE + SCREEN Blood Bank Routine 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) Expected: 02/24/2024, Expires: 05/25/2024 [facility] Work Phone: Comment on above: Expected: 02/24/2024 , Expires: 05/25/2024 Start: 02-24-2024 End: 02-24-2024 ambulatory Hematology/Oncology Comment on above: DLBCL PLEASE PAGE [id number] WHEN THE PATIENT CHECKS IN Start: 02-24-2024 End: 02-24-2024 Nursing evaluation of patient and report Hematology/Oncology Comment on above: PLEASE PAGE [id number] WHEN THE PATIENT CHECKS IN Start: 02-18-2024 End: 05-19-2024 Magnesium [Mass/volume] in Serum or Plasma MAGNESIUM Lab Routine 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) Expected: 02/18/2024, Expires: 05/19/2024 [facility] Work Phone: Comment on above: Expected: 02/18/2024 , Expires: 05/19/2024 Start: 01-20-2024 End: 02-18-2025 PET+CT Guidance for localization of tumor of Skull base to mid-thigh-- W [id number] IV NM PET/CT SKULL-THIGH SUBSEQUENT Radiology Routine 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) Expected: 01/20/2024 (Approximate), Expires: 02/18/2025 [facility] Work Phone: Comment on above: Expected: 01/20/2024 (Approximate), Expires: 02/18/2025 Start: 12-25-2023 End: 03-25-2024 [id number] [Mass/volume] in Serum or Plasma [facility] Work Phone: Comment on above: Expected: 12/25/2023 , Expires: 03/25/2024 Start: 11-03-2023 Advance Directive Discussion Advance Directive Discussion [facility] Start: 11-03-2023 Behavioral Health Screening Behavioral Health Screening [facility] Start: 11-03-2023 Depression Assessment Depression Ass essment [facility] Start: 10-28-2023 End: 01-27-2024 CBC W Auto Differential panel - Blood CBC + DIFF Lab Routine 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) Expected: 10/28/2023, Expires: 01/27/2024 [facility] Work Phone: Comment on above: Expected: 10/28/2023 , Expires: 01/27/2024 Start: 10-28-2023 End: 01-27-2024 Comprehensive metabolic 2000 panel - Serum or Plasma COMP METABOLIC PANEL Lab Routine 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) Expected: 10/28/2023, Expires: 01/27/2024 [facility] Work Phone: Comment on above: Expected: 10/28/2023 , Expires: 01/27/2024 Start: 08-05-2023 End: 10-05-2023 CBC W Auto Differential panel - Blood CBC + DIFF Lab Routine 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) Expected: 08/05/2023, Expires: 10/05/2023 [facility] Work Phone: Comment on above: Expected: 08/05/2023 , Expires: 10/05/2023 Start: 08-05-2023 End: 10-05-2023 Comprehensive metabolic 2000 panel - Serum or Plasma COMP METABOLIC PANEL Lab Routine 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) Expected: 08/05/2023, Expires: 10/05/2023 [facility] Work Phone: Comment on above: Expected: 08/05/2023 , Expires: 10/05/2023 Start: 07-22-2023 End: 09-21-2023 Basic metabolic 2000 panel - Serum or Plasma BASIC METABOLIC PNL Lab Routine 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) Expected: 07/22/2023 (Approximate), Expires: 09/21/2023 [facility] Work Phone: Comment on above: Expected: 07/22/2023 (Approximate), Expires: 09/21/2023 Start: 07-22-2023 End: 09-21-2023 CBC W Auto Differential panel - Blood CBC + DIFF Lab Routine 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 Start: 06-03-2023 Influenza vaccination Flu vacc ine (Season Ended) [facility] Start: 05-13-2023 End: 07-13-2023 [id number] [Mass/volume] in Serum or Plasma [facility] Work Phone: Comment on above: Expected: 05/13/2023 , Expires: 07/13/2023 Start: 05-13-2023 End: 07-13-2023 Chronic hepatitis differentiation between hepatitis B and C virus panel - Serum or Plasma [facility] Work Phone: Comment on above: Expected: 05/13/2023 , Expires: 07/13/2023 Start: 04-16-2023 End: 04-16-2023 Patient encounter procedure 04/16/2023 Office Visit Oncology Emelia Gonzalez MD [address] [place], [place] [id number] [facility] Part of [facility] Start: 04-02-2023 Annual Wellness Visi t (AWV) Annual Wellness Visit (AWV) [facility] Start: 11-03-2022 ADVANCE DIRECTIVE DISCUSSION ADVANCE DIRECTIVE DISCUSSION [facility] Start: 11-03-2022 DEPRESSION ASSESSMENT DEPRESSION ASS ESSMENT [facility] Start: 04-05-2022 Thyroid stimulating hormone measurement TSH testing [facility] Work Phone: Start: 2021 Abdominal aortic ane urysm screening [facility] [employer] Start: 2021 PNEUMOCOCCAL: 65+ (1 - PCV) PNEUMOCOCCAL: 65+ (1 - PCV) [facility] Start: 07-04-2021 Influenza vaccination Flu vacc ine (Season Ended) [facility] Work Phone: Start: 04-18-2021 End: 04-18-2021 Patient encounter procedure 04/18/2021 Office Visit Oncology Maritza Mendoza MD [address] [place], [place] [id number] [facility] Part of [facility] Start: 07-04-2020 Influenza vaccination Flu vacc ine (Season Ended) [place], [place] Start: 04-19-2020 End: 04-19-2020 Office Visit 04/19/2020 Office Visit Oncology Maritza Mendoza MD [address] [place] [address] [facility] Part of [facility] Start: 02-17-2020 TSH Qn TSH testing [place], [place] Start: 2016 RSV Vaccine (1 - 1-d ose 60+ series) RSV Vaccine (1 - 1-dose 60+ series) [facility] Start: 2011 PROSTATE CANCER SCRE ENING DISCUSSION PROSTATE CANCER SCREENING DISCUSSION [facility] Start: 2011 Prostate specific an tigen measurement Prostate Cancer Screening Discussion [facility] Start: 2006 Prostate specific an tigen measurement PROSTATE CANCER SCREENING DISCUSSION [facility] Start: 2006 Screening for malign ant neoplasm of colon Colon cancer screen colonoscopy [place], [place] Start: 2006 Screening for malign ant neoplasm of lung Lung Cancer Screening [facility] Start: 2006 Shingles Vaccine (1 of 2) Barrera gles Vaccine (1 of 2) [place] Start: 2006 SHINGRIX VACCINE (1 of 2) BARRERA GRIX VACCINE (1 of 2) [facility] Start: 2001 COLOGUARD (FIT-DNA) COLOGUARD (FIT-D NA) [facility] Start: 2001 Colonoscopy COLONOSCOPY [facility] Start: 2001 COLORECTAL CANCER SCREENING COLORECTAL CANCER SCREENING [facility] Start: [address] COLONOGRAPHY [facility] Start: 2001 FECAL OCCULT BLOOD FECAL OCCULT BLOO D [facility] Start: 2001 Screening for malign ant neoplasm of colon [facility] Start: 2001 [facility]OSCOPY [facility] Start: 1996 Lipid panel LE GRAND [facility] Start: 1991 Lipid 1996 panel - S bucky or Plasma Lipid Screening [facility] Start: 1991 Lipid panel Lipid Screening [facility] Start: 1991 LIPID SCREEN LIPID SCREEN [facility] Start: 1975 DTaP/Tdap/Td vaccine (1 - Tdap) DTaP/Tdap/Td vaccine (1 - Tdap) 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 Start: 1974 HEPATITIS C SCREENING [facility] Start: 1971 HIV screening [facility] [place] [place] Start: 1968 COVID-19 Vaccine (1) COVID-19 Vaccin e (1) [facility] Work Phone: Start: 1968 Depression Screen Depression Screen [facility] Start: 1962 Pneumococcal 0-64 ye ars Vaccine (1 of 3 - PCV13) Pneumococcal 0-64 years Vaccine (1 of 3 - PCV13) [place] Start: 1962 Pneumococcal 0-64 ye ars Vaccine (1 of 4 - PCV13) Pneumococcal 0-64 years Vaccine (1 of 4 - PCV13) [facility] Work Phone: Start: 1962 Pneumococcal 65+ yea rs Vaccine (1 - PCV) Pneumococcal 65+ years Vaccine (1 - PCV) [facility] Start: 1962 Pneumococcal vaccination PNEUM OCOCCAL VACCINE SERIES (1 of 2 - PCV) [facility] Start: 1962 Pneumococcal Vaccine : 65+ (1 - PCV) Pneumococcal Vaccine: 65+ (1 - PCV) [facility] Start: 1962 Pneumococcal Vaccine : 65+ (1 of 2 - PCV) Pneumococcal Vaccine: 65+ (1 of 2 - PCV) [facility] Start: 1962 PNEUMOCOCCAL: 65+ (1 - PCV) PNEUMOCOCCAL: 65+ (1 - PCV) [facility] Start: 1961 COVID-19 VACCINE (#1) COVID-19 VACCI NE (#1) [facility] Start: 03-18-1957 COVID-19 Vaccine (#1) COVID-19 Vacci ne (#1) [facility] Start: 1956 ABDOMINAL AORTIC ANE URYSM SCREENING ABDOMINAL AORTIC ANEURYSM SCREENING [facility] Start: 1956 Abdominal aortic ane urysm screening Abdominal Aortic Aneurysm Screening [facility] Start: 1956 Hepatitis C screening Hepatitis C sc reen [place], [place] Start: 1956 Tetanus vaccination TETANUS [facility] Start: 1956 Thyroid stimulating hormone measurement TSH [facility] CBC AND ELECTRONIC DIFF CBC AND ELECTRONIC DIFF Lab Routine Diffuse large B-cell lymphoma, unspecified body region Ordered: 01/28/2024 [facility] Work Phone: Comment on above: Ordered: 01/28/2024 CBC W Auto Different ial panel - Blood COMPLETE BLOOD COUNT AND DIFFERENTIAL Lab Routine 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) 04/23/2024 7:53 AM EDT [facility] End: 04-23-2025 CBC W Auto Differential panel - Blood COMPLETE BLOOD COUNT AND DIFFERENTIAL Lab Routine History of engineered cell therapy infusion Once per week for 2 Occurrences starting 04/23/2024 until 04/23/2025 [facility] Comment on above: Once per week for 2 Occurrences starting 04/23/2024 until 04/23/2025 CELLULAR THERAPY COLLECTION AND PROCESSING CELLULAR THERAPY COLLECTION AND PROCESSING Procedures Routine 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) Ordered: 03/02/2024 [facility] Work Phone: Comment on above: Ordered: 03/02/2024 End: 04-23-2025 Comprehensive metabolic 2000 panel - Serum or Plasma COMPREHENSIVE METABOLIC PANEL Lab Routine History of engineered cell therapy infusion Once per week for 2 Occurrences starting 04/23/2024 until 04/23/2025 [facility] Comment on above: Once per week for 2 Occurrences starting 04/23/2024 until 04/23/2025 CT Guidance for radi ation treatment of Unspecified body region CT SIM PLANNING RADIATION ONCOLOGY Radiology Routine Follicular lymphoma grade IIIa, unspecified body region (HCC) Ordered: 03/15/2024 [facility] Work Phone: Comment on above: Ordered: 03/15/2024 End: 02-17-2025 ECG COMPLETE ECG COMPLETE ECG Routine 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) 1 Occurrences starting 02/18/2024 until 02/17/2025 [facility] Work Phone: Comment on above: 1 Occurrences starti ng 02/18/2024 until 02/17/2025 End: 05-19-2024 Echocardiography ECHO Cardiology Routine Non-Hodgkin lymphoma of lymph nodes of multiple regions, unspecified non-Hodgkin lymphoma type (HCC) DE DIOS (dyspnea on exertion) 1 Occurrences starting 05/19/2023 until 05/19/2024 [facility] Work Phone: Comment on above: 1 Occurrences starti ng 05/19/2023 until 05/19/2024 End: 04-17-2025 Echocardiography ECHO Cardiology Routine 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) Encounter for monitoring cardiotoxic drug therapy 1 Occurrences starting 02/18/2024 until 02/17/2025 [facility] Work Phone: Comment on above: 1 Occurrences starti ng 02/18/2024 until 02/17/2025 IR CENTRAL CATHETER PLACEMENT IR CENTRAL CATHETER PLACEMENT Radiology Routine 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) Ordered: 02/18/2024 [facility] Work Phone: Comment on above: Ordered: 02/18/2024 End: 04-23-2025 Magnesium [Mass/volume] in Serum or Plasma MAGNESIUM Lab Routine History of engineered cell therapy infusion Once per week for 2 Occurrences starting 04/23/2024 until 04/23/2025 [facility] Work Phone: Comment on above: Once per week for 2 Occurrences starting 04/23/2024 until 04/23/2025 End: 10-01-2024 NM PET/CT SKULL-THIGH SUBSEQUENT NM PET/CT SKULL-THIGH SUBSEQUENT Radiology Routine 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) 1 Occurrences starting 09/02/2023 until 10/01/2024 [facility] Work Phone: Comment on above: 1 Occurrences starti ng 09/02/2023 until 10/01/2024 OUTSIDE SURG PATH SL REMI REVIEW OUTSIDE SURG PATH SLIDE REVIEW Lab Routine Non-Hodgkin lymphoma of lymph nodes of multiple regions, unspecified non-Hodgkin lymphoma type (HCC) Ordered: 12/22/2023 [facility] Work Phone: Comment on above: Ordered: 12/22/2023 End: 03-19-2025 PET+CT Guidance for localization of tumor of Skull base to mid-thigh-- W 18F-FDG IV NM PET/CT SKULL-THIGH SUBSEQUENT Radiology Routine Diffuse large B-cell lymphoma, unspecified body region (HCC) 1 Occurrences starting 02/18/2024 until 03/19/2025 [facility] Work Phone: Comment on above: 1 Occurrences starti ng 02/18/2024 until 03/19/2025 End: 05-06-2025 PET+CT Guidance for localization of tumor of Skull base to mid-thigh-- W 18F-FDG IV NM PET/CT SKULL-THIGH SUBSEQUENT Radiology Routine Diffuse large B-cell lymphoma, unspecified body region (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 1 Occurrences starting 04/06/2024 until 05/06/2025 [facility] Work Phone: Comment on above: 1 Occurrences starti ng 04/06/2024 until 05/06/2025 End: 07-17-2025 PET+CT Guidance for localization of tumor of Skull base to mid-thigh-- W 18F-FDG IV NM PET/CT SKULL-THIGH SUBSEQUENT Radiology Routine 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) 1 Occurrences starting 06/17/2024 until 07/17/2025 [facility] Work Phone: Comment on above: 1 Occurrences starti ng 06/17/2024 until 07/17/2025 STAFF REVIEW STAFF REVIEW Lab Routine 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) 04/23/2024 7:53 AM EDT [facility] End: 03-19-2025 XR Chest PA and Lateral XR CHEST 2V FRONTAL/LAT Radiology Routine 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) 1 Occurrences starting 02/18/2024 until 03/19/2025 [facility] Work Phone: Comment on above: 1 Occurrences starti ng 02/18/2024 until 03/19/2025 [facility] Immunizations Immunization Date Immunization Notes Care Provider Fa cility NEGATED: Highlighted row has not occurred!12-09-2023 influenza virus vaccine, unspecified formulation Chiquita RIVERA [facility] [place] Payers Date Payer Category Payer Medicare [id number] 2021 Private Health Insurance [id number] 2021 Unknown GENERIC PAYOR ME DICARE SUPPLEMENT [id number] 2021-Present [address] [address] [place] [address] [id number] 2021 Medicare [id number] 2021 Private Health Insurance CLI [id number] 2017 Private Health Insurance [facility] xxxxxxxxx 2017-Present [phone] [address] [place] [address] xxxxxxxxx [id number] 2017 Private Health Insurance [facility] - CHOICE PLU [id number] 2017-Present [phone] [address] [place] [address] [id number] 2017 Private Health Insurance [facility] - CHOICE PLU [id number] 2017-Present [phone] [address] [place] [address] [id number] 1956 Unknown [id number] 1956 Unknown [id number] 1956 Unknown [id number] 1956 Unknown [id number] 1956 Unknown [id number] 1956 Unknown [id number] 1956 Unknown [id number] 1956 Unknown [id number] Social History Date Type Detail Facility Start: 02-24-2019 End: 12-30-2023 Tobacco smoking status NHIS Former smoker [facility] Start: 11-03-1974 End: 11-03-2009 History of tobacco use Current smoker [place], [place] Start: 11-03-1974 End: 11-03-2009 History of tobacco use Cigarette [place] Start: 02-24-2019 End: 04-17-2022 Alcohol intake Not Asked [place], [place] Start: 1955 Sex Assigned At Not on file M [place], [place] Exposure to SARS-CoV -2 (event) Unable to assess [place] Start: 02-24-2019 End: 12-30-2023 Tobacco use and exposure Never used [facility] Tobacco smoking status Never [facility] [place] Start: 05-13-2023 End: 06-17-2024 Sex Assigned At Male Farhad Verde [facility] History of tobacco use Passive smoker [facility] Start: 05-13-2023 End: 09-02-2023 Alcohol intake Ex-drinker (finding) [facility] Start: 05-13-2023 End: 06-17-2024 History of Social function [facility] Start: 12-30-2023 End: 07-19-2024 Alcohol intake Current drinker of alcohol (finding) [facility] Start: 12-30-2023 Alcohol Comment beer occ [facility] Procedure Code Equipment Code Equipment Origin al Text Equipment Identifier Dates Port-05/28/2023 [id number] Start: 05-28-2023 Comment on above: Description: Placed @ [facility] Functional Status Date Assessment Result Facility 06-08-2024 Functional Status N/A [facility] [place] 04-29-2023 Functional Status N/A [facility] 02-02-2023 to 07-20-2024 Note Date & Type Note Facility 07-20-2024 Evaluation note Diagnosis 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) documented in this encounter [facility]09-17-2024 Reason for referral (narrative)* Diagnostic Procedure Only (Routine) - Closed Specialty Diagnoses / Procedures Referred By Sergio t Referred To Contact MOLECULAR & FUNCTIONAL IMAGING Diagnoses 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) Procedures NM PET/CT SKULL-THIGH SUBSEQUENT PET IMAGING CT ATTENUATION SKULL BASE MID-THIGH Michael Boykin MD [address] [place] [address] [place] [address] Molecular & Functional Imaging [address] [place] [address] Referral ID Status Reason Start Date Expiration Date V isits Requested Visits Authorized [id number] Closed Auto-Generate d Referral 09/02/2023 10/01/2024 1 1 [facility]15[facility] History of Present illness Narrative* Michael Boykin MD - 07/18/2024 7:49 PM EDT PATIENT NAME: Katia Shaikh DATE: 07/19/2024 PRIMARY CARE PHYSICIAN: No PCP OTHER PHYSICIANS: Dr. Rivera, Dr. Emelia Gonzalez ([facility] [place]), Dr. Niesha Galdamez, Dr. Varela Portions of this encounter note have been copied from the note from 06/17/2024 and has been updated where appropriate, and reflect my current medical decision making from today. CC: This is a 68 year old male with recurrent lymphoma, seen for scheduled follow-up. INTERIM HISTORY: Since the patient's last visit here he has had no significant medical changes. He still has intermittent lymphedema of his right leg based on activities, not severe. No new complaints. He denies any unusual pain. No fevers, night sweats, or weight loss. MEDICATIONS: Current Outpatient Medications Medication Sig acyclovir (ZOVIRAX) 400 mg tablet Take 1 tablet by mouth every 12 hours. sulfamethoxazole-trimethoprim (BACTRIM DS) 800-160 mg per tablet Take 1 tablet by mouth every Friday, Friday, and Friday. Patient should start on April 16, 2024. collagen, hydrolysate, bovine, (COLLAGEN, HYDR, BOVINE,, BULK,) 100 % powd Take 1 Dose by mouth once daily. levothyroxine (SYNTHROID) 125 mcg tablet Take 1 [...] INTRAVENOUS DIRECTED PRN ALLERGIES: ALLERGIES Allergen Reactions Corticosteroids (Gl* Contraindication-Medical Surgical Corticosteroids MAY NOT be used as an antiemetic. Corticosteroids and other immunosuppressive drugsshould be avoided for 3 months after CAR T-Cell administration, unless used to manage CAR T-Cell related toxicities. Must be approved by BMT staff physician. End date 07/07/24 Allopurinol Rash PAST MEDICAL HISTORY: PAST MEDICAL HISTORY Diagnosis Date Diffuse large B cell lymphoma (HCC) 05/2023 Follicular lymphoma (HCC) GERD (gastroesophageal reflux disease) History of chemotherapy 2001 Diffuse large B cell Lymphoma History of engineered cell therapy infusion 04/06/2024 Protocol: IP CAR T-Cell Yescarta Lymphodepleting regimen: flu/cy Date of cellular therapy infusion:04/06/2024 History of radiation therapy 2001 Diffuse large [...] Social History Tobacco Use Smoking status: Former Current packs/day: 0.00 Average packs/day: 1 pack/day for 35.0 years (35.0 ttl pk-yrs) Types: Cigarettes Start date: 1974 Quit date: 2010 Years since quittin.7 Passive exposure: Past Smokeless tobacco: Never Substance [...] paralysis, seizures or tremors. PHYSICAL EXAM: BP 135/86 Pulse 79 Temp 36.4 C (97.5 F) (Temporal) Resp 16 Wt 83.7 kg (184 lb 8.4 oz) SpO2 97% BMI 25.83 kg/m ECOG 0 Exam limited to gross [...] PATHOLOGY: 12/17/2023 Right inguinal lymph node biopsy ([facility]: Mature B-cell non-Hodgkin lymphoma [facility] Pathology:-Aggressive large B-cell lymphoma, favor germinal center immunophenotype 05/07/2023 Right inguinal lymph node biopsy [facility]: Diffuse large B-cell lymphoma [facility] Pathology: Follicular lymphoma, grade 3A Comment: The histologic and immunophenotypic findings demonstrate 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 Definitive areas of diffuse large B-cell lymphoma arenot identified. LABS: Hemoglobin (g/dL) Date Value 07/07/2024 13.2 Hematocrit (%) Date Value 07/07/2024 36.2 WBC (k/uL) Date Value 07/07/2024 2.56 Platelet Count (k/uL) Date Value 07/07/2024 128 RADIOLOGY/OTHER STUDIES: 07/07/2024 PET scan IMPRESSION: VASILE DISEASE: No metabolically active lymphadenopathy. EXTRANODAL FINDINGS: No metabolically active metastases. Deauville criteria score: 1 05/07/2024 PET scan IMPRESSION: HEAD/NECK: * No FDG avid neoplastic process. CHEST: * No FDG avid neoplastic process. ABDOMEN/PELVIS: * No FDG avid neoplastic process. * Significant interval resolution/improvement in the previously present hypermetabolic abdominal and pelvic lymphadenopathy. Few residual smaller lymph nodes with low-level mild activity. * Hypermetabolic focus in the sigmoid region similar to prior. MUSCULOSKELETAL: * No FDG avid neoplastic process. 03/25/2024 PET scan IMPRESSION: HEAD/NECK: * No FDG [...] MUSCULOSKELETAL: * No FDG avid neoplastic process. 01/30/2024 PET scan IMPRESSION: HEAD/NECK: * No [...] lymphocele in the region of right inguinal vasile excision. * Mild, asymmetric activity in the [...] Criteria score : 4 04/24/2023 PET scan ([facility] [employer]) Above the diaphragm the patient has significant [...] - ICD9: 202.88, ICD10: C85.98 (primary diagnosis) Treatment history: 2001: Diagnosed with stage III DLBCL arising [...] led to biopsy and imaging. This was anincisional biopsy. The pathology was read as DLBCL at [facility]. Apr 2023: PET/CT with FDG avid lymphadenopathy above and below the diaphragm with bulky disease in abdomen and pelvis. May 2023: Came to [facility] for consultation. [facility] read this biopsy as FL, grade 3A. Given prioranthracycline and [facility] reading FL the tumor board consensus was to proceed with BR x 6 cycles. Sep 2023: PET showed most of the previously present hypermetabolic lymphadenopathy is regressed/resolved however residual hypermetabolic right inguinal lymph node Oct 2023: Completed chemotherapy. Nov 2023: EOT PET/CT with resolution most lymphadenopathy with exception of right inguinal LN whichwas larger from previous and higher SUV max [...] brief but was admitted through ED for suspectedICANS. Started dex and no recurrence of symptoms. 05/07/2024: Follow-up PET scan consistent with complete metabolic response. 07/07/2024: Follow-up PET scan consistent with complete metabolic response At this time the patient is clinically stable with no evidence of disease. We will continue close observation. Return in 3 months for follow-up and labs. Based on symptomatology will restage again with a PET scan at 6 months. The patient has right lower extremity lymphedema related to previous surgery and radiation. The patient will continue conservative measures (OTC support stocking, leg elevation). If symptoms worsen would refer to [facility] physical therapy lymphedema clinic. 2. Acquired hypothyroidism - ICD9: 244.9, ICD10: E03.9 The patient developed post radiation hypothyroidism in 2001. Currently on Synthroid 125 mcg daily. Continue management per PCP. 3. Elevated Uric acid, suspected allergy to allopurinol Allopurinol started 06/06/2023 for the treatment of elevated uric acid and to prevent tumor lysis syndrome. The patient developed a diffuse rash by 06/25/2023 and allopurinol discontinued. The rash resolved and the patient's uric acid level has remained normal. Will monitor the uric acid accordingly, and use alternative agents if indicated. 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) Non-Hodgkin lymphoma of lymph nodes of multiple regions, unspecified non-Hodgkin lymphoma type (HCC) Acquired hypothyroidism Unspecified hypothyroidism documented in this encounter [facility]09-04-[facility] History of Present illness Narrative* Ivania Juarez, RT(R) - 07/07/2024 12:15 PM EDT RADIOLOGY SERVICE PROGRESS NOTE SERVICE DATE: 07/07/2024 SERVICE TIME: 12:21 PM PATIENT IDENTITY VERIFICATION COMPLETED USING TWO (2) STANDARD IDENTIFIERS: Name and Date of confirmed by patient verbally FALL SCREENING: Has the patient had 2 falls in the last year or 1 fall with injury or currently using an Ambulatory Assistive Device (Walker, Cane, Wheelchair, Crutches, etc.)? No PATIENT GENDER DATA: .male ALLERGIES: Reviewed and unchanged MEDICATIONS REVIEWED: Not applicable PATIENT RELEVANT IMPLANT DATA REVIEWED: Not Applicable PATIENT PRESENTS WITH AN IMPLANTABLE OR ATTACHED CORN GROWER: No CREATININE: Creatinine Date Value Ref Range Status 06/17/2024 1.19 0.73 - 1.22 mg/dL Final 05/13/2024 1.01 0.73 - 1.22 mg/dL Final 05/03/2024 1.11 0.73 - 1.22 mg/dL Final Estimated Glomerular Filtration Rate Date Value Ref Range Status 06/17/2024 67 >=60 mL/min/1.73m Final Comment: Estimated Glomerular Filtration Rate (eGFR) is calculated using the 2020 CKD-EPI creatinine equation. This equation utilizes serum creatinine, sex, and age as parameters. The creatinine assay has traceable calibration to isotope dilution- mass spectrometry. Refer to KDIGO guidelines for clinical interpretation. In patients with unstable renal function, e.g. those with acute kidney injury, the eGFRmay not accurately reflect actual GFR. P.O.C.T. RESULTS: POC done: Yes, See Lab Tab July 07, [address] PERFORMED: No IV SITE: Ambulatory: A peripheral IV was started in the Left hand with a Angio cath: 22 gauge. POST EXAM PIV STATUS: Discontinued PROCEDURE TYPE: NM INJECT: PET/CT BODY SCAN. 10.8 mCi F18 FDG. No other medications given.. ADMINISTRATION TIME: 1212 PATIENT DISCHARGED TO: Ambulatory patient, left [place] department area. A Diagnostic radioactive procedure has taken place, with no further precautions necessary other than routine body substance precautions. More information regarding radiation safety can be found usingthis link: [email or web address] SIGNATURE: RT Kerwin(Eleizer) PATIENT NAME: Katia Shaikh DATE: July 07, 2024 TIME: 12:21 PM PAGER/CONTACT #: documented in this encounterTrihealth M[facility]09-04-[facility] Note[facility] History of Present illness Narrative* Michael Boykin MD - 06/16/2024 3:46 PM EDT PATIENT NAME: Katia Shaikh DATE: 06/17/2024 PRIMARY CARE PHYSICIAN: No PCP OTHER PHYSICIANS: Dr. Rivera, Dr. Emelia Gonzalez ([facility] [place]), Dr. Niesha Galdamez, Dr. Varela Portions of this encounter note have been copied from the note from 02/02/2024 and has been updated where appropriate, and reflect my current medical decision making from today. CC: This is a 68 year old male with recurrent lymphoma, seen for scheduled follow-up. INTERIM HISTORY: Since the patient's last visit here he received radiation therapy to the bulky pelvic and inguinal lymph nodes completed March 2024. He subsequently underwent CAR-T therapy at [facility] on 04/06/2024. He was discharged on 04/14/2024, but apparently developed acute aphasia when driving home. He subsequently was readmitted and treated for suspected ICANS. His acute neurological symptoms resolved and he was discharged on 04/17/2024. He has had no obvious side effects since. Follow-up PET scan 05/07/2024 consistent with complete metabolic response. On follow-up today his main complaint is intermittent swelling of his right lower extremity. The swelling is gone in the morning, but worsens at night. No redness or signs of infection. Review of systems otherwise negative. No recent fevers, night sweats, or weight loss. No unusual pain. MEDICATIONS: Current Outpatient Medications Medication Sig acyclovir (ZOVIRAX) 400 mg tablet Take 1 tablet by mouth every 12 hours. sulfamethoxazole-trimethoprim (BACTRIM DS) 800-160 mg per tablet Take 1 tablet by mouth every Friday, Friday, and Friday. Patient should start on April 16, 2024. collagen, hydrolysate, bovine, (COLLAGEN, HYDR, BOVINE,, BULK,) 100 % powd Take 1 Dose by mouth once daily. levothyroxine (SYNTHROID) 125 mcg tablet Take 1 [...] INTRAVENOUS DIRECTED PRN ALLERGIES: ALLERGIES Allergen Reactions Corticosteroids (Gl* Contraindication-Medical Surgical Corticosteroids MAY NOT be used as an antiemetic. Corticosteroids and other immunosuppressive drugsshould be avoided for 3 months after CAR T-Cell administration, unless used to manage CAR T-Cell related toxicities. Must be approved by BMT staff physician. End date 07/07/24 Allopurinol Rash PAST MEDICAL HISTORY: PAST MEDICAL HISTORY 05/2023: Diffuse large B cell lymphoma (HCC) No date: Follicular lymphoma (HCC) No date: GERD (gastroesophageal reflux disease) 2001: History of chemotherapy Comment: Diffuse large B cell Lymphoma 04/06/2024: History of engineered cell therapy infusion Comment: Protocol: IP CAR T-Cell [facility] Lymphodepleting regimen: flu/cy Date of cellular therapy infusion: 04/06/2024 2002: History of radiation therapy Comment: Diffuse large B cell lymphoma No date: History of thoracentesis No date: Hypothyroidism PAST SURGICAL HISTORY: PAST SURGICAL HISTORY No date: PAST SURGICAL HISTORY OF Comment: Bronchoscopy No date: PAST SURGICAL HISTORY OF Comment: Thoracentesis FAMILY HISTORY: FAMILY HISTORY Problem Relation Age of Onset Melanoma Father Cancer Maternal Grandfather Leukemia Paternal Grandfather Pancreatic Cancer Paternal Aunt Renal Cell Cancer Paternal Aunt SOCIAL HISTORY: Social History Tobacco Use Smoking status: Former Packs/day: 1.00 Years: 35.00 Additional pack years: 0.00 Total pack years: 35.00 Types: Cigarettes Quit date: 2009 Years since quittin.6 Passive exposure: Past Smokeless tobacco: Never Substance [...] paralysis, seizures or tremors. PHYSICAL EXAM: BP 124/80 Pulse 79 Temp 36.2 C (97.1 F) (Temporal) Resp 18 Wt 83.4 kg (183 lb 13.8 oz) SpO2 100% BMI 25.74 kg/m ECOG 0 Exam limited to gross [...] PATHOLOGY: 12/17/2023 Right inguinal lymph node biopsy ([facility]) [facility]: Mature B-cell non-Hodgkin lymphoma [facility] Pathology:-Aggressive large B-cell lymphoma, favor germinal center immunophenotype 05/07/2023 Right inguinal lymph node biopsy [facility]: Diffuse large B-cell lymphoma [facility] Pathology: Follicular lymphoma, grade 3A Comment: The histologic and immunophenotypic findings demonstrate 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 Definitive areas of diffuse large B-cell lymphoma arenot identified. LABS: Hemoglobin (g/dL) Date Value 06/17/2024 12.2 Hematocrit (%) Date Value 06/17/2024 33.8 WBC (k/uL) Date Value 06/17/2024 2.72 Platelet Count (k/uL) Date Value 06/17/2024 119 RADIOLOGY/OTHER STUDIES: 05/07/2024 PET scan IMPRESSION: HEAD/NECK: * No FDG avid neoplastic process. CHEST: * No FDG avid neoplastic process. ABDOMEN/PELVIS: * No FDG avid neoplastic process. * Significant interval resolution/improvement in the previously present hypermetabolic abdominal and pelvic lymphadenopathy. Few residual smaller lymph nodes with low-level mild activity. * Hypermetabolic focus in the sigmoid region similar to prior. MUSCULOSKELETAL: * No FDG avid neoplastic process. 03/25/2024 PET scan IMPRESSION: HEAD/NECK: * No FDG [...] MUSCULOSKELETAL: * No FDG avid neoplastic process. 01/30/2024 PET scan IMPRESSION: HEAD/NECK: * No [...] lymphocele in the region of right inguinal vasile excision. * Mild, asymmetric activity in the [...] Criteria score : 4 04/24/2023 PET scan ([facility]) Above the diaphragm the patient has significant [...] - ICD9: 202.88, ICD10: C85.98 (primary diagnosis) Treatment history: 2001: Diagnosed with stage III DLBCL arising [...] led to biopsy and imaging. This was anincisional biopsy. The pathology was read as DLBCL at [facility]. Apr 2023: PET/CT with FDG avid lymphadenopathy above and below the diaphragm with bulky disease in abdomen and pelvis. May 2023: Came to [facility] for consultation. [facility] read this biopsy as FL, grade 3A. Given prioranthracycline and [facility] reading [place] the tumor board consensus was to proceed with BR x 6 cycles. Sep 2023: PET showed most of the previously present hypermetabolic lymphadenopathy is regressed/resolved however residual hypermetabolic right inguinal lymph node Oct 2023: Completed chemotherapy. Nov 2023: EOT PET/CT with resolution most lymphadenopathy with exception of right inguinal LN whichwas larger from previous and higher SUV max [...] brief but was admitted through ED for suspectedICANS. Started dex and no recurrence of symptoms. 05/07/2024: Follow-up PET scan consistent with complete metabolic response. At this time the patient is clinically stable with no evidence of disease. We will continue close observation. As recommended will repeat PET/CT at 3 months (early July 2024). He will then return for follow-up. Most likely has right lower extremity lymphedema related to previous surgery and radiation. I suggested an OTC support stocking. If symptoms worsen would refer to [facility] physical therapy lymphedema clinic. 2. Acquired hypothyroidism - ICD9: 244.9, ICD10: E03.9 The patient developed post radiation hypothyroidism in 2001. Currently on Synthroid 125 mcg daily. Continue management per PCP. 3. Elevated Uric acid, suspected allergy to allopurinol Allopurinol started 06/06/2023 for the treatment of elevated uric acid and to prevent tumor lysis syndrome. The patient developed a diffuse rash by 06/25/2023 and allopurinol discontinued. The rash resolved and the patient's uric acid level has remained normal. Will monitor the uric acid accordingly, and use alternative agents if indicated. Michael Boykin MD documented in this encounterTrihealth [facility]08-06-2024 NoteGeneral Surgery Office/Clinic Note Chief Complaint consultation for abnl PET scan HPI Staff 68 year old male presents on consultation from Dr. Boykin for abnormal PET scan. PET scan completed05/11/24 with hypermetabolic focus in the sigmoid. Patient [...] in past; denies change in bms or grossblood in stools; no abd complaints; no abd operations or previous colonoscopy; no asa or NSAID use;no tobacco use; no fmhx of GI malignancy [...] virus vaccine, inactivated - Not Given Patient RefusesUniversity Hospitals Cleveland Medical CenterComment on above:Result Comment: Electronically Signed By: MIGUEL LOFTON, Chiquita Jeong.kanika\Date and Time Signed: 06/08/24 14:22 [id number] Telephone encounter Note* Telephone Encounter - Mitra Amaro LISW - 06/02/2024 3:36 PM EDT SOCIAL WORK FOLLOW UP NOTE: [facility] Date of service:06/02/2024 Katia Shaikh is being seen for a follow up social work visit. Today's visit includes: spouse- Jennifer TOPICS ADDRESSED: finances I received a call Thursday 05/31 regarding incorrect billing totoaling 8k per patients Jennifer. Jennifer has contacted Medicare and our [facility] billing dept with no resolve. I have escalated to PFA, hospital manager Radhika H and additional BMT nursing service administrator. I called patient today and explained [...] in Care Team tab: Yes FREDA Cabrera [facility] Work Phone: 1(828) 115-578607-31-2024 Miscellaneous Notes* Telephone Encounter - Mitra mAaro LISW - 06/02/2024 3:36 PM EDT SOCIAL WORK FOLLOW UP NOTE: [facility] Date of service:06/02/2024 Katia Shaikh is being seen for a follow up social work visit. Today's visit includes: spouse- Jennifer TOPICS ADDRESSED: finances I received a call Thursday 05/31 regarding incorrect billing totoaling 8k per patients Jennifer. Jennifer has contacted Medicare and our [facility] billing dept with no resolve. I have escalated to PFA, hospital manager Radhika H and additional BMT nursing service administrator. I called patient today and explained [...] tab: Yes FREDA Cabrera documented in this encounterTrihealth Mcc[facility]07-25-2024 Telephone encounter Note * Telephone Encounter - Aurora Alvarez - 05/27/2024 2:13 PM EDT Spoke to patient & scheduled him on 06/17/2024 for labs at 2:45 pm & BRM at 3 pm. Aurora Alvarez [facility]07-25-2024 Miscellaneous Notes* Telephone Encounter - Aurora Alvarez - 05/27/2024 2:13 PM EDT Spoke to patient & scheduled him on 06/17/2024 for labs at 2:45 pm & BRM at 3 pm. Aurora Alvarez * Telephone Encounter - Emma Mendoza - 05/20/2024 3:02 PM EDT Roverto called back checking on status of appt. He claims he was supposed to have an appt at the end of May. I told him what was happening and that we would call him back soon with an appt date and time. * Telephone Encounter - Yesi White HUC - 05/18/2024 7:32 AM EDT Good Morning Maira Esther, Please Advise on what date and time to put this Patient on BR's schedule in June. Thank you! MIRIAN Garcia * Telephone Encounter - Ivania Jackman RN - 05/17/2024 3:13 PM EDT Clerical: Pt will need to see BRM for labs and RV in june. Please schedule and call pt w/ theappointment. Thanks! Ivania Jackman RN * Telephone Encounter - Ivania Jackman RN - 05/17/2024 3:13 PM EDT Images from the original note were not included. Michael Boykin MD Winter, Allison, MD; Ivania Jackman RN Got it. We will schedule follow-up here [...] also advised him to call and get anappt scheduled. ----- Message ----- From: Michael Boykin MD Sent: 05/17/2024 11:43 AM EDT To: Ivania Jackman RN; Niesha Galdamez MD Thanks for the update. At this point he has no follow-up scheduled with me. Would it be best that he see you [place], or see me at our [place] office? I can then ask our nurse to contact him to make arrangements. YourMichael womack ----- Message ----- From: Niesha Galdamez MD Sent: 05/15/2024 6:39 PM EDT To: Michael Boykin MD He made it through [facility] CAR T-cell therapy. PET with CMR! I recommended colonoscopy given the Xfor uptake in the sigmoid colon. He should stay on bactrim until CD4 count is above 200 on 2 reads. documented in this encounterTrihealth Mcc[facility]07-18-2024 Telephone encounter Note * Telephone Encounter - Emma Mendoza - 05/20/2024 3:02 PM EDT Roverto called back checking on status of appt. He claims he was supposed to have an appt at the end of May. I told him what was happening and that we would call him back soon with an appt date and time. [facility]07-16-2024 Telephone encounter Note* Telephone Encounter - Yesi White HUC - 05/18/2024 7:32 AM EDT Good Morning Maria Esther, Please Advise on what date and time to put this Patient on [facility]'s schedule in June. Thank you! MIRIAN Garcia [facility]07-15-2024 Telephone encounter Note* Telephone Encounter - Ivania Jackman RN - 05/17/2024 3:13 PM EDT Clerical: Pt will need to see BRM for labs and RV in june. Please schedule and call pt w/ theappointment. Thanks! Ivania Jackman RN [facility] Work Phone: [phone]) 662-143807-15-2024 Telephone encounter Note* Telephone Encounter - Ivania Jackman RN - 05/17/2024 3:13 PM EDT Images from the original note [...] also advised him to call and get anappt scheduled. ----- Message ----- From: Michael Boykin MD Sent: 05/17/2024 11:43 AM EDT To: Ivania Jackman RN; Niesha Galdamez MD Thanks for the update. At this point he has no follow-up scheduled with me. Would it be best that he see you [place], or see me at our [place] office? I can then ask our nurse to contact him to make arrangements. Michael Lawrence ----- Message ----- From: Niesha Galdamez MD Sent: 05/15/2024 6:39 PM EDT To: Michael Boykin MD He made it through [facility] CAR T-cell therapy. PET with CMR! I recommended colonoscopy given the Xfor uptake in the sigmoid colon. He should stay on bactrim until CD4 count is above 200 on 2 reads. [facility]07-11-2024 NoteW[facility]umed[facility]07-11-2024 History of Present illness Narrative* Mitra Amaro LISW - 05/13/2024 12:16 PM EDT Social Work Survivorship Note Information/Referral: Katia Shaikh [...] brief but was admitted through ED for suspectedICANS. Started dex and no recurrence of symptoms. Keppra was stopped due to severe agitation. Discharged robert on dex taper. Doing well today, completely asymptomatic Roverto reports no concerns with fatigue or issues with sleep. Roverto is not taking naps, , walks up to 3.5 miles and is overall feeling quite physically well. Appetite is consistent with no concerns aswell. Care-partner: Jennifer is coping well at this time and feels that Roverto is doing a good job at this time in responseto recovery. Social well-being: Level of activity at home and ability to get out of the house Roverto shared that he wants to get outof the house but has additional weeks prior to being able to drive. 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 I have updated the nurse janitor caretaker for additional assistance. I will also [...] fatigue or issues with sleep. Roverto is nottaking naps, , walks up to 3.5 miles [...] thought he would be referred to the armature winder of the [employer] for travel related financial assistance but was not referred. I have updated the nurse janitor caretaker for additional assistance. I will also [...] refer the patient to local cancer center manager social responsibility in [place] for ongoing care as needed.. Transfer care back to Dr. Boykin in [place] FREDA Cabrera documented in this encounterTrihealth M[facility]07-11-2024 Nurse Note* Dunia Gipson OCCA - 05/13/2024 11:10 AM EDT Additional intake questions: Has the patient had fever, nausea, vomiting, diarrhea, constipation, fatigue for > 1 week? No Does the patient have a decreased appetite? No Does patient want to see a Wheelchair Driver? No (yes to any of above refer patient to schedulers for dietitian appointment) ) Does patient have any new or increased numbness or tingling of extremities? No Is patient interested in fertility information? No Does patient need any prescription refills? No Does patient have an advanced directive in place? No [facility]07-11-20[facility] Nurse Note* Dunia Gipson OCCA - 05/13/2024 11:10 AM EDT Additional intake questions: Has the patient had fever, nausea, vomiting, diarrhea, constipation, fatigue for > 1 week? No Does the patient have a decreased appetite? No Does patient want to see a Wheelchair Driver? No (yes to any of above refer patient to schedulers for dietitian appointment) ) Does patient have any new or increased numbness or tingling of extremities? No Is patient interested in fertility information? No Does patient need any prescription refills? No Does patient have an advanced directive in place? No documented in this encounterTrihealth M[facility]07-11-2024 History of Present illness Narrative* Niesha Galdamez MD - 05/13/2024 11:00 AM EDT Images from the original note were not included. [facility] DEPARTMENT OF HEMATOLOGY AND MEDICAL ONCOLOGY DIAGNOSIS: [...] led to biopsy and imaging. This was anincisional biopsy. The pathology was read as DLBCL at [facility]. Apr 2023: PET/CT with FDG avid lymphadenopathy above and below the diaphragm with bulky disease in abdomen and pelvis. May 2023: C[facility] to [facility] for consultation. [facility] read this biopsy as FL, grade 3A. Given prioranthracycline and [facility] reading [place] the tumor board consensus was to proceed with BR x 6 cycles. Sep 2023: PET showed most of the previously present hypermetabolic lymphadenopathy is regressed/resolved however residual hypermetabolic right inguinal lymph node Oct 2023: Completed chemotherapy. Nov 2023: EOT PET/CT with resolution most lymphadenopathy with exception of right inguinal LN whichwas larger from previous and higher SUV max [...] brief but was admitted through ED for suspectedICANS. Started dex and no recurrence of symptoms. 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 PHYSICAL EXAM: VS: BP 135/72 Pulse 72 [...] (k/uL) Date Value 05/13/2024 0.91 (L) Abs Ponce (k/uL) Date Value 05/13/2024 0.31 Abs Eosin [...] In vitro hemolysis may lead to non-physiological (spurious)elevation in lactate dehydrogenase (LDH) results. The result [...] incisional biopsy was read as DLBCL at [facility] but when reviewed by [facility] including the hematopathology consensus conference, it wasread as FL, grade 3A. His case was presented at Tumor Board and given prior anthracycline and FL read the recommendation was BR x 6 cycles. - His EOT PET/CT in November 2023 showed resolution of lymphadenopathy with the exception of the right inguinal LN which was 4.3 x 3.5 and increased from his interim PET/CT. Excisional LN biopsy showsDLBCL (both locally and here). Repeat PET/CT following [...] transfer care back to Dr. Boykin in [place]. I recommend follow up at 2 month nell and then again at 3 months post CAR T-cell therapy with a repeat PET/CT at 3 months. We remindedhim that he must wait 8 weeks before driivng. 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 [...] colonoscopy Niesha Galdamez MD Associate Staff Physician [facility] [address] [place] [address] Pager: [phone] documented in this encounterTrihealth Mcc[facility]07-11-2024 NoteWvumed[facility]07-11-2024 Instructions* Patient Instructions* Dylan Porter MD - 05/13/2024 9:24 AM EDT Date of cellular therapy infusion: 04/06/2024 Months from CAR T-cell therapy 6 8 10 12 Approximate month & year 10/2024 Inactivated influenza vaccine every Fall Allogeneic Prevnar1 Hib2 Tdap3 Twinrix4 Polio6 Prevnar Hib Td7 Twinrix Polio Prevnar Hib Td Polio MenB8 MenACWY9 Ayqjgmbm78 MenB MenACWY Twinrix Shingrix 1Prevnar = 20-valent [...] is ? 50 years documented in this encounterTrihealth Mccull[facility]07-11-2024 NoteW[facility]umed[facility]07-11-2024 History of Present illness Narrative* Dylan Porter MD - 05/13/2024 9:20 AM EDT INFECTIOUS DISEASE BONE MARROW POST TRANSPLANT EVALUATION [...] Lymphodepleting regimen: flu/cy Date of cellular therapy infusion:04/06/2024 History of radiation therapy 2002 Diffuse large [...] 80.7 kg (178 lb) SpO2 99% BMI 24.92kg/m GENERAL APPEARANCE: Patient in no acute distress, [...] modification for local practices. Biol Blood Marrow Transp lant. 2009;15(10):1143. Immunization should not be delayed in the presence of active GVHD, but it may be prudent to measurespecific antibody levels after vaccination series completed to [...] Polio Prevnar Hib Td Polio MenB8 MenACWY9 Jrsjkchk80 MenB MenACWY Twinrix Shingrix 1Prevnar = 20-valent [...] 2024 TIME: 9:21 AM documented in this encounterTrihealth Mccull[facility]07-05-2024 History of Present illness Narrative* Esther Rivera RN - 05/07/2024 12:00 PM EDT Radiology Service Progress Note DATE OF SERVICE: May 07, 2024 TIME: 12:06 PM PATIENT IDENTITY VERIFICATION COMPLETED USING TWO (2) STANDARD IDENTIFIERS: Name and Date of confirmed by patient verbally. FALL SCREENING: Has the patient had 2 falls in the last year or 1 fall with injury or currently using an Ambulatory Assistive Device (Walker, Cane, Wheelchair, Crutches, etc.)? No PATIENT GENDER DATA: Male EXAM: CT -CONTRAST INDUCED NEPHROPATHY RISK FACTORS: Not applicable CREATININE: Creatinine Date Value Ref Range Status 05/03/2024 1.11 0.73 - 1.22 mg/dL Final 04/23/2024 0.89 0.73 - 1.22 mg/dL Final 04/17/2024 0.93 0.73 - 1.22 mg/dL Final Estimated Glomerular Filtration Rate Date Value Ref Range Status 05/03/2024 73 >=60 mL/min/1.73m Final Comment: Estimated Glomerular Filtration Rate (eGFR) is calculated using the 2020 CKD-EPI creatinine equation. This equation utilizes serum creatinine, sex, and age as parameters. The creatinine assay has traceable calibration to isotope dilution- mass spectrometry. Refer to KDIGO guidelines for clinical interpretation. In patients with unstable renal function, e.g. those with acute kidney injury, the eGFRmay not accurately reflect actual GFR. P.O.C.T. RESULTS: N/A May 07, 2024 TREATMENT: N/A IV SITE: Ambulatory: A peripheral IV was started in the Left antecubital site with a Angio cath: 24gauge. IV SITE APPEARANCE: Clean,Dry and Intact SIGNATURE: Esther Rivera RN PATIENT NAME: Katia Shaikh DATE: May 07, 2024 TIME: 12:06 PM * Ivania Juarez RT(R) - 05/07/2024 12:00 PM EDT RADIOLOGY SERVICE PROGRESS NOTE SERVICE DATE: 05/07/2024 SERVICE TIME: 12:18 PM PATIENT IDENTITY VERIFICATION COMPLETED USING TWO (2) STANDARD IDENTIFIERS: Name and Date of confirmed by patient verbally POST EXAM PIV STATUS: Discontinued PROCEDURE TYPE: NM INJECT: PET/CT BODY SCAN. 10.1 mCi F18 FDG. No other medications given.. ADMINISTRATION TIME: 1206 PATIENT DISCHARGED TO: Ambulatory patient, left [place] department area. A Diagnostic radioactive procedure has taken place, with no further precautions necessary other than routine body substance precautions. More information regarding radiation safety can be found usingthis link: [email or web address]%20Nuclear%20Medicine%[email or web address] SIGNATURE: RT Kerwin(R) PATIENT NAME: Katia Shaikh DATE: May 07, 2024 TIME: 12:18 PM PAGER/CONTACT #: documented in this encounterTrihealth Mccull[facility]07-05-2024 NoteW[facility]07-05-2024 NoteW[facility]07-01-2024 Telephone encounter Note* Telephone Encounter - Danielle Lazaro RN - 05/03/2024 3:16 PM EDT POST CAR-T FOLLOW UP PHONE CALL Spoke to Katia Terrazas Kaushik on phone on May 03, 2024 at [...] understanding of weekly lab draws and the [facility] call procedure. Danielle Lazaro RN [facility]07-01-2024 Miscellaneous Notes* Telephone Encounter - Danielle Lazaro RN - 05/03/2024 3:16 PM EDT POST CAR-T FOLLOW UP PHONE CALL Spoke [...] understanding of weekly lab draws and the [facility] call procedure. Danielle Lazaro RN documented in this encounterTrihealth Mccull[facility]06-28-2024 Telephone encounter Note * Telephone Encounter - Danielle Lazaro RN - 04/30/2024 2:17 PM EDT 1340: Spoke with Jennifer, patient's spouse about lab work needed. Patient's spouse was not aware of lab work needed weekly. RN advised that standing lab work is in the system and they can go to the [facility] to have the labs drawn. RN advised that they will need them the following week as well. She verbalized understanding. Danielle Lazaro RN [facility]06-28-2024 Miscellaneous Notes* Telephone Encounter - Danielle Lazaro RN - 04/30/2024 2:17 PM EDT 1340: Spoke with Jennifer, patient's spouse about lab work needed. Patient's spouse was not aware of lab work needed weekly. RN advised that standing lab work is in the system and they can go [facility] to have the labs drawn. RN advised that they will need them the following week as well. She verbalized understanding. Danielle Lazaro RN documented in this encounterTrihealth Mcc[facility]06-21-2024 Instructions* Patient Instructions* Nabila Chery APRN.MIRACLE - 04/23/2024 9:14 AM EDT - labs weekly locally until you see Dr. Galdamez for your 30-day follow-up visit. Obtain blood work earlier in the week (Friday or Friday) each week. You do not need to get blood work the week you arehere for your 30-day follow-up (we will obtain blood work at our lab here that day). documented in this encounterTrihealth Mccull[facility]06-21-2024 History of Present illness Narrative* Nabila Chery APRN.CNP - 04/23/2024 9:00 AM EDT Blood and Marrow Transplant Program Patient: Katia [...] 40 mg daily. His appetite is improving. Heis drinking adequately. Reports having 1 soft BM [...] by mouth every 6 hours as needed.^Disp: 100tablet^Rfl: 1 levothyroxine (SYNTHROID) 125 mcg tablet^Take 1 tablet by mouth every afternoon.^Disp: ^Rfl: MULTIVITAMIN ORAL^Take 1 Dose by mouth once daily.^Disp: ^Rfl: KRILL OIL ORAL^Take 1 Dose by mouth once daily.^Disp: ^Rfl: Allergies: ALLERGIES Allergen Reactions Corticosteroids (Gl* Contraindication-Medical Surgical Corticosteroids MAY NOT be used as an antiemetic. Corticosteroids and other immunosuppressive drugsshould be avoided for 3 months after CAR [...] Lymphodepleting regimen: flu/cy Date of cellular therapy infusion:04/06/2024 History of radiation therapy 2002 Diffuse large [...] 100% RA; orthos: sitting: BP 106/70 HR 72,standing: BP 105/70 HR 82 General appearance: Well [...] example Our national bird is the bald [place]. 1-YES 10. Count backwards from 100 by 10's 1-YES NEUROLOGICAL ASSESSMENT SCORE: 10 = No impairment CRS Grading No CRS ICANS Grading Grade 0 (No Abnormality) CRS & ICANS Scoring Reference Document Labs: Latest Ref [facility] 04/23/2024 Protein, Total 6.3 - 8.0 [...] which included preparing to see the patient, [id number] patient care, completing clinical documentation, obtaining and/or reviewing separately obtained history, performing a medically appropriate examination, counseling and educating the pat ient/family/caregiver, ordering medications, tests, or procedures, communicating with other HCPs (not separately reported), independently interpreting results (not separately reported), communicatingresults to the patient/family/caregiver, and care coordination (not separately reported). An opportunity for patient to ask questions was provided. Understanding of the information given inthis visit was stated, and patient is in agreement with the recommendations as explained here. Follow up: As scheduled or sooner as needed Nabila Chery APRN.MIRACLE documented in this encounterTrihealth Mccull[facility]06-21-2024 NoteWv[facility]06-21-2024 Nurse Note* Kaden Brizuela LPN - 04/23/2024 8:53 AM EDT Additional intake questions: Has the patient had fever, nausea, vomiting, diarrhea, constipation, fatigue for > 1 week? No Does the patient have a decreased appetite? No Does patient want to see a Wheelchair Driver? No (yes to any of above refer [...] Center Electronically Signed By: Kaden Brizuela LPN [facility]06-21-2024 Nurse Note* Kaden Brizuela LPN - 04/23/2024 8:53 AM EDT Additional intake questions: Has the patient had fever, nausea, vomiting, diarrhea, constipation, fatigue for > 1 week? No Does the patient have a decreased appetite? No Does patient want to see a Wheelchair Driver? No (yes to any of above refer patient to schedulers for dietitian appointment) ) Does patient have any new or increased numbness or tingling of extremities? No Is patient interested in fertility information? No Does patient need any prescription refills? No Does patient have an advanced directive in place? No, Patient refused referral to Social Work or Resource Lester Electronically Signed By: Kaden Brizuela LPN documented in this encounterTrihealth Mccull[facility]06-15-2024 NoteW[facility]06-14-2024 NoteW[facility]06-14-2024 NoteW[facility]06-13-2024 NoteW[facility]06-13-2024 Note [facility]06-12-2024 Telephone encounter Note* Telephone Encounter - Cecil Esquivel MD - 04/14/2024 6:41 PM EDT [facility] Hematology/Oncology Fellow After Hours Phone Call Heme/onc [...] MD Hematology/Oncology Fellow PGY-4 04/14/2024 6:41 PM [facility] Work Phone: [phone] Miscellaneous Notes* Telephone Encounter - Cecil Esquivel MD - 04/14/2024 6:41 PM EDT [facility] Hematology/Oncology Fellow After Hours Phone Call Heme/onc [...] PGY-4 04/14/2024 6:41 PM documented in this encounterTrihealth Mcc[facility]06-12-2024 NoteW[facility]06-12-2024 NoteW[facility]06-12-2024 NoteW[facility]06-11-2024 NoteW[facility]06-10-2024 Note [facility]06-10-2024 NoteW[facility]06-09-2024 NoteW[facility]06-09-2024 NoteW[facility] 04-11-2024 NoteHNO ID: [id number] Author: NOTE, INTERFACE, ? Service: ? Author Type: ? Type: Progress Notes Filed: 04/11/2024 02:38 Note Text: Epic Scheduled Downtime: 04/11/2024 1:00:00 AM to 04/11/2024 2:26:00 [facility]06-08-2024 NoteW[facility]06-08-2024 Note [facility]06-08-2024 NoteHNO ID: [id number] Author: NOTE, INTERFACE, ? Service: ? Author Type: ? Type: Progress Notes Filed: 04/10/2024 03:23 Note Text: Epic Scheduled Downtime: 04/10/2024 1:00:00 AM to 04/10/2024 3:02:00 [facility]06-07-2024 NoteW[facility]06-07-2024 Note [facility]06-06-2024 NoteW[facility]06-06-2024 NoteW[facility]06-05-2024 NoteW[facility] 04-06-2024 NoteWv[facility]05-30-2024 History of Present illness Narrative* Niesha Galdamez MD - 04/01/2024 9:30 AM EDT Images from the original note were not included. [facility] DEPARTMENT OF HEMATOLOGY AND MEDICAL ONCOLOGY DIAGNOSIS: [...] led to biopsy and imaging. This was anincisional biopsy. The pathology was read as DLBCL at [facility]. Apr 2023: PET/CT with FDG avid lymphadenopathy above and below the diaphragm with bulky disease in abdomen and pelvis. May 2023: Came to [facility] for consultation. [facility] read this biopsy as [place], grade 3A. Given prioranthracycline and [facility] reading [place] the tumor board consensus was to proceed with BR x 6 cycles. Sep 2023: PET showed most of the previously present hypermetabolic lymphadenopathy is regressed/resolved however residual hypermetabolic right inguinal lymph node Oct 2023: Completed chemotherapy. Nov 2023: EOT PET/CT with resolution most lymphadenopathy with exception of right inguinal LN whichwas larger from previous and higher SUV max [...] from [place] Hypothyroidism SOCIAL HISTORY: Lives in [place], [place] to Jennifer who is present today Retired from [employer] Likes car racing with his son Previous smoker Very active MEDICATIONS: Reviewed and updated in [employer]. PHYSICAL EXAM: VS: BP 126/67 Pulse 73 [...] Neut (k/uL) Date Value 03/09/2024 5.36 Abs Ponce (k/uL) Date Value 03/09/2024 1.06 (H) Abs [...] last year and incisional biopsy was read asDLBCL at [facility] but when reviewed by [facility] [...] DC. Niesha Galdamez MD Associate Staff Physician [facility] [address] [place] [address] Pager: [phone] Date: April 01, 2024 documented in this encounterTrihealth Mccull[facility]05-30-2024 NoteW[facility]05-30-2024 Nurse Note* Dunia Gipson OCCA - 04/01/2024 9:18 AM EDT Additional intake questions: Has the patient had fever, nausea, vomiting, diarrhea, constipation, fatigue for > 1 week? No Does the patient have a decreased appetite? No Does patient want to see a Wheelchair Driver? No (yes to any of above refer patient to schedulers for dietitian appointment) ) Does patient have any new or increased numbness or tingling of extremities? No Is patient interested in fertility information? No Does patient need any prescription refills? No Does patient have an advanced directive in place? No [facility]05-30-2024 Nurse Note* Dunia Gipson OCCA - 04/01/2024 9:18 AM EDT Additional intake questions: Has the patient had fever, nausea, vomiting, diarrhea, constipation, fatigue for > 1 week? No Does the patient have a decreased appetite? No Does patient want to see a Wheelchair Driver? No (yes to any of above refer patient to schedulers for dietitian appointment) ) Does patient have any new or increased numbness or tingling of extremities? No Is patient interested in fertility information? No Does patient need any prescription refills? No Does patient have an advanced directive in place? No documented in this encounterTrihealth Mccull[facility]05-24-2024 History of Present illness Narrative* Priyanka Echols, [facility] - 03/26/2024 12:42 PM EDT Images from the original note were not included. [facility] Department of Pharmacy Pharmacy Office Visit Chimeric [...] considerations: CrCl ~75 ml/min - will be re- assessed within 72 hours of LD Additional Information: [...] 0.9 03/09/2024 Abs Neut 5.36 03/09/2024 Abs Ponce 1.06 03/09/2024 Abs Eosin 0.38 03/09/2024 Abs [...] the care of this patient. Priyanka Echols [facility] Pager: [phone] March 26, 2024 12:42 PM documented in this encounterTrihealth Mccull[facility]05-24-2024 NoteWv[facility]05-23-2024 History of Present illness Narrative* Ivania Juarez RT(R) - 03/25/2024 12:15 PM EDT RADIOLOGY SERVICE PROGRESS NOTE SERVICE DATE: 03/25/2024 SERVICE TIME: 2:01 PM PATIENT IDENTITY VERIFICATION COMPLETED USING TWO (2) STANDARD IDENTIFIERS: Name and Date of confirmed by patient verbally POST EXAM PIV STATUS: Discontinued PROCEDURE TYPE: NM INJECT: PET/CT BODY SCAN. 9.4 mCi F18 FDG. No other medications given.. ADMINISTRATION TIME: 1228 PATIENT DISCHARGED TO: Ambulatory patient, left [place] department area. A Diagnostic radioactive procedure has taken place, with no further precautions necessary other than routine body substance precautions. More information regarding radiation safety can be found usingthis link: [email or web address] SIGNATURE: RT Kerwin(R) PATIENT NAME: Katia Shaikh DATE: March 25, 2024 TIME: 2:01 PM PAGER/CONTACT #: documented in this encounterTrihealth Mccullough-[facility]05-23-2024 [facility]05-20-2024 History of Present illness Narrative* Tristen Varela MD - 03/22/2024 3:15 PM EDT Radiation Oncology - On Treatment Review (OTR) [...] has follow-up for his planned CAR-T cell. Tristen Varela MD documented in this encounterTrihealth Mccullough-[facility]05-20-2024 NoteWv[facility]05-20-2024 History of Present illness Narrative* Tristen Varela MD - 03/22/2024 12:[address] [facility] Radiation Oncology Department RADIATION ONCOLOGY - COMPLETION NOTE PATIENT: KATIA SHAIKH: 1955 DATES OF TREATMENT: DIAGNOSIS: Follicular lymphoma [...] Electronically Signed cc: Dr.Murphy Dr. Emelia Gonzalez ([facility] [place]), Dr. Niesha Galdamez documented in this encounterTrihealth Mccullough-[facility]05-20-2024 NoteW[facility]05-17-2024 NoteW[facility]05-17-2024 History of Present illness Narrative* Merced Gregorio LSW - 03/19/2024 3:57 PM EDT Patient appears on the [facility] First Time Radiation Treatment Report. Patient was assessed by FREDA Quiroz on 02/24/24. CLARITA Sanchez Goals of Care Advance Directives are not on file. SIGNATURE: CURTIS Sanchez PATIENT NAME: Katia Shaikh DATE: March 19, 2024 TIME: 3:59 PM PAGER/CONTACT #: documented in this encounterTrihealth Mccullough-[facility]05-14-2024 [facility]05-14-2024 History of Present illness Narrative* Tristen Varela MD - 03/16/2024 2:15 PM EDT Radiation Oncology - On Treatment Review (OTR) [...] First treatment given. Continue radiation as prescribed. Tristen Varela MD documented in this encounterTrihealth Mccull[facility]05-13-2024 NoteW[facility]05-13-2024 History of Present illness Narrative* Tristen Varela MD - 03/15/2024 11:10 AM EDT Radiation Oncology - New Patient/Consult Note PATIENT NAME: Katia Shaikh PATIENT REQUESTING PROVIDER: Dr. Niesha Galdamez Additional physicians: Dr. Boykin DIAGNOSIS: Recurrent non-Hodgkin's lymphoma. 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 Recurrence right pelvis and inguinal area this spring with biopsy demonstrating (after [facility] review) follicular grade 3 non-Hodgkin lymphoma HPI: [...] large B-cell lymphoma however on review at [facility] felt to raul follicular grade 3 nontoxic follow-up. He underwent evaluation including referral to Dr. Castaneda, [facility]. Bendamustine plus Rituxan recommended. Patient started this June 2023 with rapid initial resolution of adenopathy and symptoms. He completed 4 cycles on PET scan showed resolution of overall blood in area within the right inguinal region. After his 6 cycle of BR PET/CT demonstrated increased right inguinal adenopathy no otherdisease. Lymph node in December of this year, pathology demonstrating aggressive large B- cell lymphoma favoring germinal center type. He underwent [...] lymphocele in the region of right inguinal vasile excision. * Mild, asymmetric activity in the [...] negative for DVT. He was given a wr ap for symptomatic improvement. He has been evaluated at [facility] with Dr. Castaneda, plan to proceed with CAR- T cell therapy. Given rapidly increasing adenopathy patient [...] of adenopathy no obvious other skin changes notableno erythema to the remaining right lower extremity Lymphatics: Multiple large palpable areas of adenopathy right groin area to upper medial right thigh Hematologic: No signs of active bleeding. RADIOLOGY/LABORATORY DATA: see HPI ASSESSMENT AND PLAN: Quite some cancer hours from [place] [facility] in the morning makes this order so asparagus PSO Jeri a super easy extremity. I get the rest. He is really doing it because he can make a big patch because he read in recurrent non-Hodgkin's lymphoma. Initially diagnosed 2001 with stage III diffuse large B- cell lymphoma with prior treatment including R-CHOP x 6 and thoracic radiation. Recurrence right pelvis and inguinal area this spring with biopsy demonstrating (after [facility] review) follicular grade 3 non-Hodgkin lymphoma Patient I do feel would benefit from local involved radiation for his aggressive non-Hodgkin's lymphoma. Given clinically he is having worsening local symptoms and fairly rapid progression of diseaseI do feel a course of radiation will help minimize potential risks related to progressive disease and hopefully help improve his local symptoms prior to starting his CAR-T cell therapy. Will plan a simulation today. Given short time interval and rapid progression recommend a short course/5 fractioncourse of treatment 2000 cGy in 5 fractions. Signed by: Tristen Varela MD cc: To use this Smartlink, specify the provider ID whose address you want to display, e.g., .PROVADDR[1(where 1 is the provider ID). Niesha [place] [address] [facility] [address] documented in this encounterTrihealth Mccull[facility]05-13-2024 Nurse Note* Sandra Mayen RN - 03/15/2024 7:42 AM EDT Pacemaker/Defibrillator? No Previous Cancer(s)? No Previous Radiation? No Lupus/Scleroderma? No On body monitoring device? No Sandra Mayen RN [facility]05-13-2024 Nurse Note* Sandra Mayen RN - 03/15/2024 7:42 AM EDT Pacemaker/Defibrillator? No Previous Cancer(s)? No Previous Radiation? No Lupus/Scleroderma? No On body monitoring device? No Sandra Mayen RN documented in this encounterTrihealth Mccull[facility]05-13-2024 History of Present illness Narrative* Tristen Varela MD - 03/15/2024 12:00 AM EDT KATIA SHAIKH [id number] 03/15/2024 [facility] Radiation Oncology Department SIMULATION NOTE DATE OF SIMULATION: 03/15/2024 THERAPIST: Jaqueline Britton MACHINE: [employer] DIAGNOSIS: Follicular lymphoma grade IIIa, lymph nodes [...] / YONAS 44:21 PM documented in this encounterTrihealth Mccullough-[facility]05-13-2024 History of Present illness Narrative* Tristen Varela MD - 03/15/2024 12:00 AM EDT KATIA SHAIKH [id number] 03/15/2024 [facility] Department of Radiation Oncology Treatment Planning [...] Varela M.D. 49:31 AM documented in this encounterTrihealth Mccull[facility]05-13-2024 NoteWv[facility]05-13-2024 NoteW[facility]05-11-2024 Telephone encounter Note* Telephone Encounter - Tabitha Albarran MD - 03/13/2024 11:32 AM EDT Patient calling with new onset unilateral (right) leg swelling. Advised to go to ED for DVT evaluation. Discussed risks delay in diagnosis of potential DVT (risk of PE). Tabitha Montana MD Hematology-Oncology Fellow Phone/Pager: [phone] Page me [facility] Work Phone: 1(604) 949-732105-11-2024 Miscellaneous Notes* Telephone Encounter - Tabitha Albarran MD - 03/13/2024 11:32 AM EDT Patient calling with new onset unilateral (right) leg swelling. Advised to go to ED for DVT evaluation. Discussed risks delay in diagnosis of potential DVT (risk of PE). Tabitha Montana MD Hematology-Oncology Fellow Phone/Pager: [phone] Page me documented in this encounterTrihealth Mcc[facility]05-08-2024 Telephone encounter Note * Telephone Encounter - Noah Altman RN - 03/10/2024 4:17 PM EDT APHERESIS PHONE FOLLOW UP - LINE PULL [...] Altman RN March 10, 2024 4:18 PM [facility] Work Phone: 1(512) 102-494305-08-2024 Miscellaneous Notes* Telephone Encounter - Noah Altman RN - 03/10/2024 4:17 PM EDT APHERESIS PHONE FOLLOW UP - LINE PULL [...] 10, 2024 4:18 PM documented in this encounterTrihealth Mccull[facility]05-07-2024 NoteW[facility]-07-[facility]24 History of Present illness Narrative* Noah Altman RN - 03/09/2024 1:55 PM EDT APHERESIS CENTRAL LINE REMOVAL SERVICE DATE: 03/09/2024 [...] Change to Band-Aid in am. Call tomorrow [phone] to report progress. Report any concerns and/or go to the emergencyroom. Do not get it wet for one week (such as taking showers or swimming), avoid heavy exertion (including weight training exercises) for same period. Ambulatory patient. SIGNATURE: Noah Altman RN PATIENT NAME: Katia Shaikh DATE: March 09, 2024 TIME: 1:55 PM PAGER/CONTACT #: [phone] * Noah Altman RN - 03/09/2024 10:48 AM EDT APHERESIS MNC COLLECTION FOR IMMUNE EFFECTOR CELL THERAPY : 1955 Age:[age] year old Gender: male BP 120/77 Pulse 92 Temp 36.7 C (98.1 F) (Oral) Resp 18 Ht 180.1 cm (5' 10.91 ) Wt 82.1 kg(181 lb) BMI 25.31 kg/m Start Procedure Time: 09:19 Day: 1 Procedure: MNC Collection for IEC [facility] Vendor ID: [id number] Protocol: N/A Physician: Dr. Galdamez BMT Coordinator: [...] uric acid, Bilirubin Conjugated, phosphorus Inorganic and Magnesiumfrom blue port , without difficulty, drawn by [...] for anticoagulation during collection NSS lot # [id number] NSS expiration ACD lot # [id number] ACD expiration Apr 27 Machine Information Machine Optia # 6 cMNC Machine Clean vv Alarm Check vv Kit lot # [id number] Kit expiration 2025-11-03 Anticoagulant Connection Adapter Lot # [id number] Anticoagulant Connection Adapter Expiration Date 2025-08-03 Blood warmer # 6 Blood warmer tubing lot# [id number] Blood warmer tubing expiration 2025-06-04 Blood warmer temperature: 40.8 C Patient's Total Blood Volume 5309 ml Processed: 2.8 blood volumes = 70157 ml Collected 208 ml product. AC Ratio: 12:1 AC in Product: 26 Product labeled per protocol. Product picked up by : Creel Operator Upon completion: Temp 98.2 F oral, Pulse 93, BP 124/73, Resp 18/min Red and Blue port caps changed. Flushed Red with 10 ml NSS and White with 10 ml NSS. Dressing N/A, central line remove after the procedure. Procedure tolerated well. Patient discharged ambulatory. Patient collection completed Procedure end time: 13:01 Noah Altman RN [facility] APHERESIS ROSENDO NOTE OF PERSONAL INVOLVEMENT [...] procedure well. Faisal Blanco PA-C 03/09/24 Pager: [phone] documented in this encounterTrihealth Mccull[facility]05-07-2024 Nurse Note* Noah Altman RN - 03/09/2024 11:38 AM EDT AMBULATORY PATIENT EDUCATION NOTE READINESS TO LEARN [...] By Noah Altman RN in Department: HEMATOLOGY/ONCOLOGY [facility]05-07-2024 Nurse Note* Noah Altman RN - 03/09/2024 11:38 AM EDT AMBULATORY PATIENT EDUCATION NOTE READINESS TO LEARN [...] RN in Department: HEMATOLOGY/ONCOLOGY documented in this encounterTrihealth Mcc[facility]05-07-2024 NoteW[facility]05-07-2024 NoteW[facility]05-07-2024 History of Present illness Narrative* Niesha Galdamez MD - 03/09/2024 10:30 AM EDT Images from the original note were not included. [facility] DEPARTMENT OF HEMATOLOGY AND MEDICAL ONCOLOGY DIAGNOSIS: [...] led to biopsy and imaging. This was anincisional biopsy. The pathology was read as DLBCL at [facility]. Apr 2023: PET/CT with FDG avid lymphadenopathy above and below the diaphragm with bulky disease in abdomen and pelvis. May 2023: Came to [facility] for consultation. [facility] read this biopsy as FL, grade 3A. Given prioranthracycline and [facility] reading FL the tumor board consensus was to proceed with BR x 6 cycles. Sep 2023: PET showed most of the previously present hypermetabolic lymphadenopathy is regressed/resolved however residual hypermetabolic right inguinal lymph node Oct 2023: Completed chemotherapy. Nov 2023: EOT PET/CT with resolution most lymphadenopathy with exception of right inguinal LN whichwas larger from previous and higher SUV max (now up to 28.5). Dec 2023: Excisional LN biopsy with DLBCL INTERVAL HISTORY: Katia Shaikh and his return for pre-CAR T cell therapy visit. He is feeling fine. No fevers, drenching night sweats, unintentional weight loss. Appetite is fine. Activity level is good. Nofatigue. Only symptoms in increasing right inguinal lymphadenopathy. 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 PHYSICAL EXAM: VS: BP 130/76 Pulse 91 [...] Neut (k/uL) Date Value 03/09/2024 5.36 Abs Ponce (k/uL) Date Value 03/09/2024 1.06 (H) Abs [...] lymphocele in the region of right inguinal vasile excision. * Mild, asymmetric activity in the [...] last year and incisional biopsy was read asDLBCL at [facility] but [facility] by [facility] [...] harvest via apheresis via apheresis. His childbearing potentialwas assessed; he is male. Patient is suitable [...] He has disease localized to right inguinal/pelvic nodesso will ask if Dr. Varela who he has seen can do palliative radiation as bridging while we await CAR T- cell manufacturing. He voiced agreement with that plan. Niesha Galdamez MD Associate Staff Physician [facility] [address] [place] [address] Pager: [phone] documented in this encounterTrihealth Mccull[facility]05-07-2024 NoteHNO ID: [id number] Author: RAVEN OBREGON RN Service: Interventional Radiology Author Type: Registered Nurse Type: Nursing Progress Note Filed: 03/09/2024 08:46 Note Text: Pt sent to [facility] with Port accessed in case they will need to use port. [facility]05-06-[facility] Nurse Note* Jill Broussard LPN - 03/08/2024 3:33 PM EDT Additional intake questions: Has the patient had fever, nausea, vomiting, diarrhea, constipation, fatigue for > 1 week? No Does the patient have a decreased appetite? No Does patient want to see a Wheelchair Driver? No (yes to any of above refer patient to schedulers for dietitian appointment) ) Does patient have any new or increased numbness or tingling of extremities? No Is patient interested in fertility information? No Does patient need any prescription refills? No Does patient have an advanced directive in place? No, Patient referred to [facility] Electronically Signed By: Jill Broussard LPN [facility]05-06-2024 Nurse Note* Jill Broussard LPN - 03/08/2024 3:33 PM EDT Additional intake questions: Has the patient had fever, nausea, vomiting, diarrhea, constipation, fatigue for > 1 week? No Does the patient have a decreased appetite? No Does patient want to see a Wheelchair Driver? No (yes to any of above refer patient to schedulers for dietitian appointment) ) Does patient have any new or increased numbness or tingling of extremities? No Is patient interested in fertility information? No Does patient need any prescription refills? No Does patient have an advanced directive in place? No, Patient referred to [facility] Electronically Signed By: Jill Broussard LPN documented in this encounterTrihealth Mccull[facility]04-30-2024 Telephone encounter Note * Telephone Encounter - Fiona Greer - 03/02/2024 7:11 AM EDT Patient is scheduled 03/25 at 12:15pm for his PET scan in [place]. Fiona Adams [facility]04-30-2024 Miscellaneous Notes* Telephone Encounter - Fiona Greer - 03/02/2024 7:11 AM EDT Patient is scheduled 03/25 at 12:15pm for his PET scan in [place]. Fiona Adams documented in this encounterTrihealth Mccullough-[facility]04-25-2024 Telephone encounter Note * Telephone Encounter - Sepideh Thorpe - 02/26/2024 10:10 AM EDT 1st time treatment report. Patient is active with Medicare A and B, LOC 80%, $240 deductible has $0remaining with no OOP max. Patient has [employer] Medicare SUPPLEMENT as a secondary to excelsior picker all 20% Medicare coins. Patient financial responsibility is $0 for each treatment in 2023.Called the patientto discuss navigator services, Cost Facit Questionnaire completed over the phone. Dx: Diffuse large B cell lymphoma C83.38 // DxDate: 02/18/2024 // Physician: Niesha Galdamez MD [id number]. [facility] Work Phone: 1(255) 368-456404-25-2024 Miscellaneous Notes* Telephone Encounter - Sepideh Thorpe - 02/26/2024 10:10 AM EDT 1st time treatment report. Patient is active with Medicare A and B, LOC 80%, $240 deductible has $0remaining with no OOP max. Patient has [employer] Medicare SUPPLEMENT as a secondary to excelsior picker all 20% Medicare coins. Patient financial responsibility is $0 for each treatment in 2023.Called the patientto discuss navigator services, Cost Facit Questionnaire completed over the phone. Dx: Diffuse large B cell lymphoma C83.38 // DxDate: 02/18/2024 // Physician: Niesha Galdamez MD [id number]. documented in this encounterTrihealth Mccull[facility]04-24-2024 Telephone encounter Note * Telephone Encounter - Krystyna Hernandez LISW - 02/25/2024 4:08 PM EDT SOCIAL WORK FOLLOW UP NOTE: [facility]CER CENTER Date of service: 02/25/24 Katia Shaikh is being seen for a follow up social work visit. Today's visit includes: spouse TOPICS ADDRESSED: coping/support PLAN: Communicate pertinent medical/psychosocial information to Cancer Center team, Continue followup as needed , and Provide emotional support to patient/family F/U APPOINTMENT: PRN Assigned SW listed in Care Team tab: Yes SW received phone call from Roverto's , Jennifer, today. She reported they have several questions regarding upcoming appointments and post-transplant medications. SW reached out to [facility] for additional assistance. Jennifer reported they have been concerned about the financial stress of travel and lodging expenses. SW made a referral to the [facility] financial navigators for assistance with LLS grants. She reported her and Roverto have been feeling frustrated and overwhelmed with upcoming medical appointments. SW provided validation and emotional support. SW to follow. FREDA Cottrell [facility] Work Phone: [phone] Miscellaneous Notes* Telephone Encounter - Krystyna Hernandez LISW - 02/25/2024 4:08 PM EDT SOCIAL WORK FOLLOW UP NOTE: CANCER CENTER Date of service: 02/25/24 Katia Shaikh is being seen for a follow up social work visit. Today's visit includes: spouse TOPICS ADDRESSED: coping/support PLAN: Communicate pertinent medical/psychosocial information to Cancer Center team, Continue followup as needed , and Provide emotional support to patient/family F/U APPOINTMENT: PRN Assigned GIL listed in Care Team tab: Yes SW received phone call from Roverto's , Jennifer, today. She reported they have several questions regarding upcoming appointments and post-transplant medications. SW reached out to [facility] for additional assistance. Jennifer reported they have been concerned about the financial stress of travel and lodging expenses. SW made a referral to the [facility] financial navigators for assistance with LLS grants. She reported her and Roverto have been feeling frustrated and overwhelmed with upcoming medical appointments. SW provided validation and emotional support. SW to follow. FREDA Cottrell documented in this encounterTrihealth Mccull[facility]04-23-2024 History of Present illness Narrative* Krystyna Hernandez LISW - 02/24/2024 12:50 PM EDT PSYCHOSOCIAL ASSESSMENT BLOOD AND MARROW TRANSPLANT PROGRAM DATE OF ASSESSMENT:02/25/24 Psychosocial Assessment of Candidates for Transplantation (PACT) Score: 3 - good transplant candidate DATA: Katia Shaikh is a 68 year old male who is planning on undergoing an Chimeric Antigen Receptor (CAR) T-cell therapy. [facility] is Dr. Galdamez. Katia Shaikh was [...] . HOME ENVIRONMENT: Katia Shaikh resides at [address] [place] [address] with his , Jennifer (about an hour and 15 minutes from [facility]). Katia Shaikh has access to a [...] support; he does not affiliate with a quaker. 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 It was explained that the average Chimeric Antigen Receptor (CAR) T-cell therapy patient is disabled 3 months. Jennifer is retired and worked in a hospital as an x-ray tech for 23 years. MENTAL HEALTH HISTORY: Katia Shaikh states that he has no current or history of mental healthneeds or treatment. Katia hSaikh has no history of suicidal ideation, intent [...] caregiving needs post discharge at length. Katia Shaikhplans on his , Jennifer, being the primary [...] Shaikh's health insurance is Medicare and Medicare [employer]. He has a pharmacy benefit and has affordable co-pays. Katia Shaikh is not registered with The [employer] Co- Pay Assistance Program. He has not received additional [employer] grants. He will not be referred to the [facility] Financial Navigators for enrollment. Katia Shaikh does not express financial concerns. He was provided with information about discounted parking at [facility]. He does not qualify for parking assistance and was referred to the [facility] Patient Uniform Force Captain for assistance. INTERESTS: Katia Shaikh enjoys car racing with his son and riding his motorcycle. ADVANCE CARE PLANNING: Katia Shaikh states that he does not have a living will; Provided education on their right to complete AD documents. . he does not have a power of director of manufacturing operations for health care; Provided education on their [...] tab: Yes FREDA Cottrell documented in this encounterTrihealth Mccull[facility]04-23-2024 NoteW[facility]04-23-2024 NoteW[facility]04-23-2024 History of Present illness Narrative* Radha Peng RN - 02/24/2024 11:45 AM EDT CAR T-cell Therapy Met with patient and [...] appetite changes, bowel habit changes, electrolyte disturbances, headache,hypersensitivity reaction, infection, loss of fertility, myalgia, neutropenia, taste changes, thrombocytopenia. Discussed possible CRS and Neurologic side effects along with treatment in detail. The need for blood and/or platelet transfusions was explained, along with the transfusion process. Explained post discharge requirements including follow [facility] appointment [facility] within 5 business days of discharge, physician appointment at 1 month, 2 months and 100 days post discharge. Also explained the possibility that the patient would need to follow in [place] more often if necessary. Reinforced that it is required to have a 24/7 caregiver for 4 weeks post infusion, that driving or operating heavy machinery for 8 weeks post infusion is prohibited, and that they must stay within 2 hours of [facility] for 4 weeks post infusion. Reviewed [...] habit changes, electrolyte disturbances, fatigue, hair loss, hypersensitivityreaction, infection, mouth hygiene, mucositis, nausea/vomitting, neutropenia, skin [...] patient, which included the importance of reporting anyfever of 100.4F (38.0C) or greater to the healthcare team as noted on the provided wallet card and/or magnet. YES Time Spent: 1 hour REFERRAL (RECOMMENDATION): Social Work Radha Peng RN documented in this encounterTrihealth Mccullough-[facility]04-22-2024 NoteW[facility]04-22-2024 History of Present illness Narrative* Krystyna Hernandez LISW - 02/23/2024 11:21 AM EDT SOCIAL WORK PROGRESS NOTE Name: Katia Shaikh Pre-cell infusion assessment chart review. GIL is scheduled to meet with Mr. Shaikh on 02/24/24 for an assessment for CAR T-Cell Therapy. SW reviewed chart and prepared documentation for appointment. SW to follow. Signature: FREDA Cottrell Date: February 23, 2024 Time: 11:21 AM documented in this encounterTrihealth Mccullough-[facility]04-17-2024 Miscellaneous Notes* Telephone Encounter - Elizabeth Nice - 02/18/2024 2:17 PM EDT SCHEDULED 03/31 * Telephone Encounter - Carlene Holloway RN - 02/18/2024 11:20 AM EDT Authorization number: Transplant Primary Insurance: Transplant Diagnosis: [...] - Schedule as requested Comments for Manager Content: 03/31/24 ROUTE TO SCHEDULERS POOL P PET UI LEAD DEVELOPER MC or P NM SPECIAL STUDIES MC * Telephone Encounter - Elena Rosenthal - 02/18/2024 11:01 AM EDT This form is used for MAIN CAMPUS APPOINTMENTS ONLY. Is this request for a Main Wheelwright PET scan appointment? Yes: Hourly Sign Language Interpreter: Elena Foster Requesting Person (Paula Martins): [id number] Area Code + Phone/Pager: [phone] Who do we call to schedule this appointment? Requestor Requesting Staff [id number] Area Code + Phone/Pager: N/A PET Orders [...] P COORD REVIEW MC documented in this encounterTrihealth Mccullough-[facility]04-17-2024 Instructions* Patient Instructions* Radha Peng RN - 02/18/2024 9:45 AM [...] hr) BMT ROSENDO EKG - see orders J1-4 02/23 Echo LVEF x 05552 1 hr J1-5 02/23 CT scans - [...] Admission Interview J1-1 04/06 documented in this encounterTrihealth Mccullough-[facility]04-17-2024 Miscellaneous Notes* Telephone Encounter - Radha Peng RN - 02/18/2024 9:26 AM EDT CAR T-cell Initial Telephone Contact Spoke with Katia Shaikh on the telephone on 02/18/2024 at 0915 regarding CAR T-Cell Therapy / [employer]. Discussed evaluation testing required, including bone marrow biopsy, for which a delivery driver/customer service is required. Once resulted, all staging results and requested information will be sent to insurance company forapproval. Reviewed generic calendar outlining the CAR-T process. Reviewed that prior to leukapheresis, patient will need to have a temporary catheter placed in Interventional Radiology. Discussed process of collecting/processing T cells, including 1 day of Apheresis, cells being sent to [facility] and engineered into CAR-T cells. Explained that engineering takes approx imately 17 days. Notified patient that ,in rare [...] to be inserted prior to admission to [facility], and that patient will receive the Car-T cell infusion the dayon admission day. Discussed CRS (Cytokine Release Syndrome) [...] concerns. Contact information provided. Radha Peng RN * Telephone Encounter - Pretty Jimenez - 02/18/2024 8:38 AM EDT Katia Shaikh is calling Niesha Galdamez MD today regarding Felt Finisher - Other (Next Steps) Patient requesting call back to go over next steps and what to expect next. Requesting response back: [phone] (cell) Duration of symptoms: N/A Patient has been identified by name and birthdate. Pretty Jimenez February 18, 2024 documented in this encounterTrihealth Mccullough-[facility]04-11-2024 History of Present illness Narrative* Niesha Galdamez MD - 02/12/2024 11:00 AM EDT Images from the original note were not included. [facility] DEPARTMENT OF HEMATOLOGY AND MEDICAL ONCOLOGY DIAGNOSIS: [...] led to biopsy and imaging. This was anincisional biopsy. The pathology was read as DLBCL at [facility]. Apr 2023: PET/CT with FDG avid lymphadenopathy above and below the diaphragm with bulky disease in abdomen and pelvis. May 2023: C[facility] to [facility] consultation. [facility] read this biopsy as FL, grade 3A. Given prioranthracycline and [facility] reading [place] the tumor board consensus was to proceed with BR x 6 cycles. INTERVAL HISTORY: Katia Shaikh and his return for follow up given progression of disease. He reports doingphysically well. No fevers, drenching night sweats, unintentional weight loss. Previous lymph node lump is still present but has not noticed anything new. Patient is concerned regarding CAR-T therapydue to the previous bendamustine treatment. 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 PHYSICAL EXAM: VS: BP 133/72 Pulse 75 [...] Neut (k/uL) Date Value 12/25/2023 3.66 Abs Ponce (k/uL) Date Value 12/25/2023 1.06 (H) Abs [...] lymphocele in the region of right inguinal vasile excision. * Mild, asymmetric activity in the [...] incisional biopsy was read as DLBCL at [facility] but when reviewed by [facility] including the hematopathology cons ensus conference, it was read as FL, grade [...] shows DLBCL (both locally and here). New PET/CTshows progressive disease. I have discussed options and [...] He and his will consider options and getback to us. By signing my name below, [...] complete. Niesha Galdamez MD Associate Staff Physician [address] [place] [address] Pager: [phone] documented in this encounterTrihealth Mccull[facility]04-11-2024 [facility]04-11-2024 Nurse Note* Wallace Tolentino LPN - 02/12/2024 10:55 AM EDT Additional intake questions: Has the patient had fever, nausea, vomiting, diarrhea, constipation, fatigue for > 1 week? No Does the patient have a decreased appetite? No Does patient want to see a Wheelchair Driver? No (yes to any of above refer patient to schedulers for dietitian appointment) ) Does patient have any new or increased numbness or tingling of extremities? No Is patient interested in fertility information? No Does patient need any prescription refills? No Does patient have an advanced directive in place? No Electronically Signed By: Wallace Tolentino LPN documented in this encounterTrihealth Mccull[facility]04-01-2024 NoteWv[facility]04-01-2024 History of Present illness Narrative* Brit Arzola MA - 02/02/2024 4:05 PM EDT POPULATION HEALTH NAVIGATION OUTREACH Action/FYI PCP is EMELIA GONZALEZ MD per Care Everywhere PCP field updated Reason for Outreach Care Gap/HCC or Scheduling Wellness Visits Care Gaps due: Establish Care Appointment Patient Contacted: Unable or unnecessary to reach patient: PCP field updated Navigation Signature: Brit Arzola MA February 02, 2024 4:05 PM documented in this encounterTrihealth Mccull[facility]04-01-2024 NoteWvumed[facility]04-01-2024 History of Present illness Narrative* Michael Boykin MD - 02/02/2024 6:25 AM EDT PATIENT NAME: Katia Shaikh DATE: 02/02/2024 PRIMARY CARE PHYSICIAN: No PCP OTHER PHYSICIANS: Dr. Rivera, Dr. Emelia Gonzalez ([facility] [place]), Dr. Niesha Galdamez Portions of this encounter note have been copied from the note from 01/12/2024 and has been updated where appropriate, and reflect my current medical decision making from today. CC: This is a 68 year old male with recurrent lymphoma, seen for scheduled follow-up. INTERIM HISTORY: Since the patient's last visit here he followed up with [facility] (Dr. Galdamez) and temporary plans are to proceed with aggressive chemotherapy/CAR-T for the treatment ofhis recurrent high-grade lymphoma. However, he sought second opinion at [facility] and there were concernsthat previous Bendamustine treatment may limit the effectiveness of CAR-T therapy, and apparently recommendations were to consider salvage chemotherapy/stem cell transplant rather than CAR-T. Currently the patient and his have many questions and concerns. Physically he feels the same. Mild discomfort in his right inguinal area, no severe pain. No recentfevers, night sweats, or weight loss. MEDICATIONS: Current [...] PATHOLOGY: 12/17/2023 Right inguinal lymph node biopsy ([facility]) [facility]: Mature B-cell non-Hodgkin lymphoma [facility] Pathology:-Aggressive large B-cell lymphoma, favor germinal center immunophenotype 05/07/2023 Right inguinal lymph node biopsy [facility]: Diffuse large B-cell lymphoma [facility] Pathology: Follicular lymphoma, grade 3A Comment: The histologic and immunophenotypic findings demonstrate 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 Definitive areas of diffuse large B-cell lymphoma arenot identified. LABS: Hemoglobin (g/dL) Date Value 12/25/2023 [...] lymphocele in the region of right inguinal vasile excision. * Mild, asymmetric activity in the [...] Criteria score : 4 04/24/2023 PET scan ([facility]) Above the diaphragm the patient has significant [...] of a right inguinal lymph node at [facility]. Initial pathology per [facility] consistent with diffuse large B-cell lymphoma. However, on review per [facility] pathology it was felt to be consistent with follicular grade 3 lymphoma rather than diffuse large B-cell lymphoma. Hewas seen by Dr. Galdamez at [facility], and recommendations were to proceed [...] in the right inguinal area, otherwise complete resolutionof all adenopathy. BR cycle 6 completed 10/29/2023. Follow-up PET scan 11/18/2023 revealed an increasing FDG avid lesion in the right inguinal area, otherwise no evidence of disease. On 12/17/2023 the patient underwent excisional biopsy of the right inguinal node. [facility] pathology confirmed aggressive large B-cell lymphoma, favor [...] scheduled to see Dr. Galdamez at [facility] on 02/12/2024 at which time the patient's concerns will be addressed. If so inclined he will then proceed with treatment. Pending final chemotherapy plans I did not schedule a return visit here, but was seen in the futureas needed to assist with care. 2. Acquired [...] indicated. Michael Boykin MD documented in this encounterTrihealth Mccull[facility]03-29-[facility]24 History of Present illness Narrative* Margie See RN - 01/30/2024 1:30 PM EDT Radiology Service Progress Note DATE OF SERVICE: January 30, 2024 TIME: 1:44 PM PATIENT WEIGHT: 188LBS PATIENT IDENTITY VERIFICATION COMPLETED USING TWO (2) STANDARD IDENTIFIERS: Name and Date of confirmed by patient verbally. FALL SCREENING: Has the patient had 2 falls in the last year or 1 fall with injury or currently using an Ambulatory Assistive Device (Walker, Cane, Wheelchair, Crutches, etc.)? No PATIENT GENDER DATA: Male ALLERGIES: Reviewed and unchanged CONTRAST ALLERGY: No EXAM: CT -CONTRAST INDUCED NEPHROPATHY RISK FACTORS: Not applicable CREATININE: Creatinine Date Value Ref Range Status 12/25/2023 1.10 0.73 - 1.22 mg/dL Final 11/18/2023 0.96 0.73 - 1.22 mg/dL Final 10/28/2023 0.96 0.73 - 1.22 mg/dL Final Estimated Glomerular Filtration Rate Date Value Ref Range Status 12/25/2023 74 >=60 mL/min/1.73m Final Comment: Estimated Glomerular Filtration Rate (eGFR) is calculated using the 2020 CKD-EPI creatinine equation. This equation utilizes serum creatinine, sex, and age as parameters. The creatinine assay has traceable calibration to isotope dilution- mass spectrometry. Refer to KDIGO guidelines for clinical interpretation. In patients with unstable renal function, e.g. those with acute kidney injury, the eGFRmay not accurately reflect actual GFR. P.O.C.T. RESULTS: POC done: Yes, See Lab Tab January 30, 2024 TREATMENT: N/A and No Hydration needed. IV SITE: Ambulatory: A peripheral IV was started in the Left hand with a Angio cath: 24 gauge. IV SITE APPEARANCE: Clean,Dry and Intact SIGNATURE: Margie See RN PATIENT NAME: Katia Shaikh DATE: January 30, 2024 TIME: 1:44 PM * Waldo Reese RT(R) - 01/30/2024 1:30 PM EDT RADIOLOGY SERVICE PROGRESS NOTE SERVICE DATE: 01/30/2024 SERVICE TIME: 1:51 PM PATIENT IDENTITY VERIFICATION COMPLETED USING TWO (2) STANDARD IDENTIFIERS: Name and Date of confirmed by patient verbally FALL SCREENING: Has the patient had 2 falls in the last year or 1 fall with injury or currently using an Ambulatory Assistive Device (Walker, Cane, Wheelchair, Crutches, etc.)? No PATIENT GENDER DATA: .male ALLERGIES: Reviewed and unchanged MEDICATIONS REVIEWED: Yes PATIENT RELEVANT IMPLANT DATA REVIEWED: Not Applicable PATIENT PRESENTS WITH AN IMPLANTABLE OR ATTACHED CORN GROWER: No IV SITE: lt hand POST EXAM PIV STATUS: Discontinued PROCEDURE TYPE: NM INJECT: PET/CT BODY SCAN. 9.9 mCi F18 FDG. No other medications given.. ADMINISTRATION TIME: 1340 PATIENT DISCHARGED TO: Ambulatory patient, left NM department area. A Diagnostic radioactive procedure has taken place, with no further precautions necessary other than routine body substance precautions. More information regarding radiation safety can be found usingthis link: [email or web address] SIGNATURE: RT Errol(R) PATIENT NAME: Katia Shaikh DATE: January 30, 2024 TIME: 1:51 PM PAGER/CONTACT #: documented in this encounterTrihealth Mccull[facility]03-29-2024 NoteWvumed[facility]03-29-2024 NoteWvumedicine [facility]03-27-2024 History of Present illness Narrative* Dmitry Mora MD - 01/28/2024 10:00 AM EDT Images from the original note were not included. IDENTIFICATION: Katia Shaikh is a 68 y.o. male who presents as a referral from Self, Self in consultation for recommendations about work up and management of DLBCL. I have reviewed the outside records and interviewed the patient and my findings are summarized below. 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 Path: NEMATOLOGY TEACHER GCB ; Ki-67 70-80%; No MYC/BCL2 double expression; FISH positive BCL6; CD5 negative NCCN-IPI: Pending Age 60-75 (2) and LDH >1-3x ULN (1); Low-intermediate (2-3); 5yr PFS 74%, OS 82% RADIOLOGY PHYSICIAN ASSISTANT-IPI: Pending Age >60 and LDH elevated; Intermediate [...] followed by consolidative radiation to the chest, achievinga CR, with new stage IV DLBCL diagnosed in March 2023 at [facility] who sought second opinion at [facility] where Pathology rendered diagnosis of FL grade [...] BCL2, positive for BCL6) of germinal center immunophe notype. He presents today for second opinion but, per notes, intends to continue following with at [facility], who has recommended CAR-T therapy. We discussed that his overall picture is potentially consistent with a late relapse of DLBCL vs a de josse DLBCL in the setting of FL. There was discrepancy regarding his diagnosis last March, initiallybeing DLBCL then changed to FL 3A per [facility] Path review. He has now received BR [...] (we discussed R-ICE or R-DHAX). Pending his resp onse to this regimen, we would either recommend [...] within 9 months in a retrospective study (Tamekaoboni G, J Clin Oncol. 2023;42(2):205-217) and it [...] involving R-tafasitamab with potential for escalation to R-ICEif not achieving response. We additionally discussed, in response to their question, that we would not consider radiation in this current setting sufficient treatment of his DLBCL though there is occasionally a role for consolidation radiation therapy (this is not his situation). The patient is undergoing a repeat PET scan this Friday and would prefer to consider their options,hear the results of the PET and get back to us regarding their decision. We discussed that, given his strong preference not to be hospitalized, salvage chemo regimens could be administered outpatientas well as CAR-T potentially (Anjum) though any complications would potentially require hospitalization and that autoSCT would require inpatient hospitalization. I have personally reviewed and interpreted the results of the patient's CBC w/ diff, CMP, LDH, uricacid, Hepatitis panel, and HIV Ab. I have [...] auto-SCT (if chemosensitive) vs proceed with CAR-T therapy(if chemorefractory) - Reasonable to pursue CAR-T at [...] Cici Mora MD Hematology/Medical Oncology Fellow Pager [phone] HISTORY OF PRESENT ILLNESS: See Oncology History [...] IV DLBCL diagnosed in March 2023 at [facility] who sought second opinion at [facility] where Pathology changed the diagnosis of DLBCL to FL grade 3A. He was then treated with BRx6 cycles, completed in October 2023. 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 He presents today for second opinion but, per notes, intends to continue following with Dr. Castaneda at [facility], who has recommended CAR-T therapy. He presents [...] 05/07/2023 Pathology Right inguinal lymph node biopsy [facility]: Diffuse large B-cell lymphoma [facility] Pathology: Follicular lymphoma, grade 3A Comment: The histologic and immunophenotypic findings demonstrate 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 Definitive areas of diffuse large B-cell lymphoma arenot identified. 06/10/2023 - 10/29/2023 Chemotherapy Bendamustine + [...] substantially changed. 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 * Danielle Yates RN - 01/28/2024 10:00 AM EDT After visit summary was printed and given to patient. Discharge instructions and follow up appointments reviewed with patient. All questions answered. Patient verbalized understanding. Patient and family encouraged to call with any additional questions. * Dorcas Bolanos MD - 01/28/2024 10:00 AM EDT I saw and evaluated Katia Shaikh with [...] lymphoma grade 3A after second opinion at [facility]. BR x6 cycles was recommended, completed in 10/2023. EOT PET demonstrated significant improvement and resolution in most areas of prior involvement, but persistent FDG avidity in the right inguinal LN. He underwent an excisional LN biopsy which demonstrated DLBCL ([facility] pathology). We reviewed his clinical course and pathologic findings in detail. Based on the available data at the time of treatment decisions, I believe that BR was a reasonable choice for grade 3A FL. However, now with the knowledge of refractory disease to BR in the right inguinal LN, biopsy proven DLBCL, BRwas insufficient to effectively treat this area of disease which seemed to likely be transformed DLBCL from FL (potentially from the time of treatment in 2022). The patient states that the current plan is to proceed with CD19.CAR-T cell therapy at [facility]. A PET scan is planned for 01/30/24 [...] (4.6 v 23.5 months) in comparison with bendamustine- na ve patients (Chika, JCO, 2023). I believe [...] up with the patient after his PET scanfor further review and discussion. Documented by Sridevi [...] the discharge instructions. Dorcas Bolanos MD, MSCR Academic Coach - Division of Hematology [facility] documented in this encounter[facility] Instructions* Patient Instructions* Chioma Austin RN - 01/28/2024 10:[address] Bolanos Clinic Orientation Thank you for entrusting your care to us at [facility]. Our clinic specifically focuses on the management of patients withlymphoma and we aim to provide you the best, most innovative treatments available. Despite great adv ances in the treatment of many lymphomas over [...] Bakari Bolanos MD, MSCR: physician Patti Isidro ELECTRICAL CONSTRUCTION PROJECT MANAGER: nurse practitioner Chana Brown ELECTRICAL CONSTRUCTION PROJECT MANAGER: nurse practitioner Danielle Yates, RN: clinic nurse Chioma Austin, RN: clinic nurse Kelsy Gage RN: Patient Care Energy Trading Analyst Brian Hilliard MS, RD: mining captain Eliazar Reeder [facility] & Brittani Redmond [facility]: Pharmacists [employer] Pul[employer] [facility] is a teaching institution; you may [...] If you get labs drawn [facility] at our request, please let us know when and where you had them drawn so we can ensure that we receive the results. We do not routinely convey normal lab results obtained outside of visits. If there is a lab result that needs to be discussed with you, we will contact you via phone or Playbasis. With rare exception, we schedule visits shortly [...] please call the nurse triage line at [phone] (open 26/05). Nurse Triage . For non-urgent matters or general questions, we prefer that you write them down so that we can address them in person at our next visit. If you feel that your question needs to be addressed prior to your next visit, please call nurse triage ([phone]) or send a message in Playbasis. If you need medication refills for drugs that we have prescribed you, it is best to let us know during your office visit. If you need a refill before your next visit, please send a message via Playbasis. Please alert us at least 7 days [...] FMLA, etc.) to be filled out. The primarynurse is the one who will normally fill this paperwork out for you, and will only call to inform you the paperwork is completed and sent if requested. In order to help you as efficiently as possible, please specify: Which forms you need filled out Where we should send it when completed (to you, your employer, etc). [facility] [employer]art: The medical information you will have access to within the My Chart program is limited (basic laboratory results, summary of medical history, visit history, and selected billing information). If you need results of a test that you can't find within Playbasis, please feel free to call us and we will get back to you with that information. Please allow 24-48 hours for a response when using My Chart. Please do not use My Chart for urgent needs. The best way to communicate urgent needs is by calling the nurse triage line. Dai: Each year, I ride 50+ miles for cancer research. This is a bike ride in [place] - 100% of every donation is invested at [facility] for [employer] cancer research. Please see my rider profile: [email or web address] Results for orders placed or performed in [...] Male 75 >=60 mL/min/1.73m2 documented in this encounterAvita Health [facility]03-26-2024 Miscellaneous Notes* Telephone Encounter - Radha Peng RN - 01/27/2024 3:06 PM EDT Attempted to contact patient to discuss CAR-T therapy. No answer, message left and contact information provided. Radha Peng RN January 27, 2024 3:07 PM documented in this encounterTrihealth Mcc[facility]03-18-2024 NoteW[facility]03-15-2024 NoteW[facility]03-15-2024 History of Present illness Narrative* Niesha Galdamez MD - 01/16/2024 8:04 AM EDT Images from the original note were not included. [facility] DEPARTMENT OF HEMATOLOGY AND MEDICAL ONCOLOGY [facility] VISIT This visit is a Audio Only Visit encounter which required patient-provider interaction for the medical decision making as documented below. Persons Present: patient and patient's spouse/significant other I have communicated my name and active licensure. The patient s identity and physical location wereverified at the time of this visit. Katia Shaikh or their legal manufacturers service representative has been informed of the risks and benefits of -- and alternatives to -- treatment through a remote evaluation andconsents to proceed with the evaluation remotely. Total [...] led to biopsy and imaging. This was anincisional biopsy. The pathology was read as DLBCL at [facility]. Apr 2023: PET/CT with FDG avid lymphadenopathy above and below the diaphragm with bulky disease in abdomen and pelvis. May 2023: Came to [facility] for consultation. [facility] read this biopsy as FL, grade 3A. Given prioranthracycline and [facility] reading FL the tumor board consensus was to proceed with BR x 6 cycles. Oct 2023: Completed cycle 6 of BR . He states he could feel the inguinal LN increasing prior to the end of therapy. Nov 2023: EOT PET/CT with resolution most lymphadenopathy with exception of right inguinal LN whichwas larger from previous and higher SUV max (now up to 28.5). Dec 2023: Excisional LN biopsy with DLBCL INTERVAL HISTORY: Katia Shaikh and his return for phone follow up to address questions about treatment options. He still feels fine. PAST MEDICAL HISTORY: DLBCL arising from FL Hypothyroidism SOCIAL HISTORY: Lives in [place], [place] to Jennifer who is present today Retired from [employer] Likes car racing with his son Previous smoker Very active MEDICATIONS: Reviewed and updated in Viraliti. PHYSICAL EXAM: None- audio only DATA REVIEWED: [...] will order PET/CT to be done at [facility]. Niesha Galdamez MD Associate Staff Physician [place] [phone] Pager: [phone] documented in this encounterTrihealth Mcc[facility]03-13-2024 Miscellaneous Notes* Telephone Encounter - Ivania Jackman RN - 01/14/2024 3:01 PM EDT Pt has a virtual visit scheduled w/ Dr Galdmaez on 01/16/24. States that he has no virtual capability at home. Advised pt to contact Dr Galdamez's office and ask if the visit could be done over the phone instead. Phone number for Dr Galdamez's office provided to pt. Pt verbalizes understanding. Pt also presents w/ questions pertaining to CAR-T therapy. Explained to pt that these would be bestdiscussed w/ Dr Galdamez as well. Pt verbalizes understanding. No additional questions noted. Ivania Jackman RN documented in this encounterTrihealth Mccull[facility]03-11-2024 NoteWvumed[facility]03-11-2024 History of Present illness Narrative* Michael Boykin MD - 01/12/2024 7:17 AM EDT PATIENT NAME: Katia Shaikh DATE: 01/12/2024 PRIMARY CARE PHYSICIAN: No PCP OTHER PHYSICIANS: Dr. Rivera, Dr. Emelia Gonzalez ([facility] [place]), Dr. Niesha Galdamez Portions of this encounter note have been copied from the note from 12/25/2023 and has been updated where appropriate, and reflect my current medical decision making from today. CC: This is a 68 year old male with recurrent lymphoma, seen for scheduled follow-up. INTERIM HISTORY: Since the patient's last visit here his right inguinal lymph node biopsy was reviewed by [facility] pathology. The diagnosis of aggressive B-cell lymphoma was confirmed. He was by Dr. Niesha Galdamez at [facility] for recommendations concerning treatment. Aggressive [...] (Temporal) Resp 18 Wt 83.9 kg (184 lb15.5 oz) SpO2 97% BMI 26.54 kg/m ECOG [...] PATHOLOGY: 12/17/2023 Right inguinal lymph node biopsy ([facility]) [facility]: Mature B-cell non-Hodgkin lymphoma [facility] Pathology:-Aggressive large B-cell lymphoma, favor germinal center immunophenotype 05/07/2023 Right inguinal lymph node biopsy [facility]: Diffuse large B-cell lymphoma [facility] Pathology: Follicular lymphoma, grade 3A Comment: The histologic and immunophenotypic findings demonstrate 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 Definitive areas of diffuse large B-cell lymphoma arenot identified. LABS: Hemoglobin (g/dL) Date Value 12/25/2023 [...] Criteria score : 4 04/24/2023 PET scan ([facility]) Above the diaphragm the patient has significant [...] of a right inguinal lymph node at [facility]. Initial pathology per [facility] consistent with diffuse large B-cell lymphoma. However, on review per [facility] pathology it was felt to be consistent with follicular grade 3 lymphoma rather than diffuse large B-cell lymphoma. Hewas seen by Dr. Galdamez at [facility], and recommendations were to proceed [...] excisional biopsy of the right inguinal node. [facility] pathology confirmed aggressive large B-cell lymphoma, favor germinal center type. 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 Options for further management and NCCN guidelines were reviewed at length with the patient and hiswife (more than 1 hour). They are aware [...] inguinal area most likely would also not becurative. The patient will be given time to consider his treatment options. A virtual visit is scheduled withDr. Galdamez on 01/16/2024. If he remains undecided I will see him back in 3 weeks for reevaluation toinclude labs and scans. Campuzano's transformation Campuzano's 2. [...] indicated. Michael Boykin MD documented in this encounterTrihealth Mcc[facility]03-04-2024 NoteWvumedicine [facility]03-04-2024 History of Present illness Narrative* Niesha Galdamez MD - 01/05/2024 12:45 PM EST Images from the original note were not included. [facility] DEPARTMENT OF HEMATOLOGY AND MEDICAL ONCOLOGY DIAGNOSIS: [...] led to biopsy and imaging. This was anincisional biopsy. The pathology was read as DLBCL at [facility]. Apr 2023: PET/CT with FDG avid lymphadenopathy above and below the diaphragm with bulky disease in abdomen and pelvis. May 2023: Came to [facility] for consultation. [facility] read this biopsy as FL, grade 3A. Given prioranthracycline and [facility] reading FL the tumor board consensus was to proceed with BR x 6 cycles. INTERVAL HISTORY: Katia Shaikh and his return for follow up given progression of disease. They seem angry and withdrawn when I enter the room. They explain they are angry because they never received a copy of the path report from [facility] and they thing [facility] was wrong and [...] drenching night sweats, unintentional weight loss. No enlargedlymph nodes. 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 PHYSICAL EXAM: VS: BP 139/80 Pulse 93 [...] FDG avid osseous lesion. Deauville score: 5 OS PATH REPORT [facility] REVIEW OF PATH 12/24/2023 FINAL DIAGNOSIS Outside slides from [facility], [place], [place], labeled [id number], collected 12/17/2023: A-B. Right inguinal lymph node, excisional biopsies: -Aggressive large B-cell lymphoma, favor germinal center immunophenotype Diagnosis Comment The combined morphologic and immunophenotypic findings demonstrate involvement by a diffuse aggressive large B-cell lymphoma. Due to issues with fixation, Landry algorithm immunophenotyping may be unreliable. FISH studies are pending. The history of follicular lymphoma, grade 3A is noted. Correlationof the clinical findings is suggested. Flow cytometry identifies an abnormal B-cell population, identifies an abnormal B-cell population, representing 90% of events, positive for CD10 (dim), CD19, CD20 (variable), and monotypic kappa surface immunoglobulin. Laboratory Developed Test (LDT) Disclaimer: Performance characteristics of immunohistochemical, immunofluorescent and chromogenic in-situ hybridization tests have been determined by the performing laboratory within [facility] s [facility] [place] ([facility], [facility], [facility], [facility], [facility], [facility], or [facility]) in a manner consistent with CLIA requirements. One or more of these tests have not been cleared or approved by the FDA. [facility] is regulated under CLIA as qualified to perform high-complexity testing. These tests are used for clinical purposes. They should not be regarded as invest igational or for research. Positive and negative controls [...] deeper sections of tissue block A5 at [facility]. The lymphoma cells are positive for [...] incisional biopsy was read as DLBCL at [facility] but when reviewed by [facility] including the hematopathology cons ensus conference, it was read as FL, grade 3A. I explained this review was released into [employer] and I also provided a copy for [...] and eligibility for therapies such as CAR T.I provided hand outs of CAR T to him. We will reconvene via phone to determine his decision. Niesha Galdamez MD Associate Staff Physician [facility] [address] [place] [address] Pager: [phone] CC: Michael Boykin ([facility]) [address] [place] [address] [place] [id number] . documented in this encounterTrihealth Mccull[facility]03-04-2024 Nurse Note* Ru Mcnair MA - 01/05/2024 12:35 PM EST Additional intake questions: Has the patient had fever, nausea, vomiting, diarrhea, constipation, fatigue for > 1 week? Yes, constipation (day of last BM 01/05/24) Does the patient have a decreased appetite? No Does patient want to see a Wheelchair Driver? No (yes to any of above refer patient to schedulers for dietitian appointment) ) Does patient have any new or increased numbness or tingling of extremities? No Is patient interested in fertility information? No Does patient need any prescription refills? No Does patient have an advanced directive in place? No, Patient referred to [facility] documented in this encounterTrihealth Mcc[facility]02-27-2024 NoteWv[facility]02-27-2024 History of Present illness Narrative* Tristen Varela MD - 12/30/2023 11:02 AM EST Radiation Oncology - New Patient/Consult Note PATIENT [...] right inguinal adenopathy and underwent treatment including R- CHOP x 6 and radiationto the chest in July 2002. It was found to have a complete response at that time. Patient had done very well without issues however in March of this year he presented with new problemof masses within each groin. Workup included PET scan 04/24/2023 which demonstrated bilateral enlarged axillary lymph nodes with significant metabolic activity, as well as bulky adenopathy within the retrocrural space, periaorticretroperitoneal area, both internal and external iliac chains extending to the inguinal areas bilaterally. Bulky is within the iliac and inguinal area. He underwent right inguinal lymph node excision on 05/07/2023, pathology demonstrating diffuse large B-cell lymphoma. Secondary pathology review [facility]: FINAL DIAGNOSIS Outside slides ([id number], 05/07/2023), [place], [place] Right inguinal lymph node, excisional biopsy: [...] Patient will continue to follow with Dr. Ashutosh Galdamez at [facility] regarding this. Signed by: Tristen Varela MD cc: To use this Smartlink, specify the provider ID whose address you want to display, e.g., .PROVADDR[1(where 1 is the provider ID). Michael Boykin ([facility]) [address] [place] [address] [place] [id number] documented in this encounterTrihealth Mccull[facility]02-27-2024 Nurse Note* Jackeline Cunningham LPN - 12/30/2023 11:01 AM EST Pacemaker/Defibrillator?N Previous Cancer(s)?NHL dx'd ~ 22 years ago Previous Radiation?Y -chest 22 years ago Lupus/Scleroderma?N On body monitoring device?N documented in this encounterTrihealth Mccull[facility]02-26-2024 Miscellaneous Notes* Telephone Encounter - Fabi Freed - 12/29/2023 10:28 AM EST Jonathan Hanson, I called Jack[facility] Scheduling and [...] advise and we will call both scheduling [phone] to reschedule and call patient back as well with information regarding this appointment. Thank you for your time and help with getting this patient scheduled. Fabi York Pss * Telephone Encounter - Ivania Jackman RN - 12/29/2023 9:45 AM EST Clerical: Pt will need to see Dr Galdamez @ [facility] to discuss potential treatment options. This maybe a virtual visit. Please schedule and contact pt w/ the appointment. Ivania Jackman RN * Telephone Encounter - Ivania Jackman RN - 12/29/2023 9:44 AM EST Images from the original note were not included. Michael Boykin MD Winter, Allison, MD; Ivania Jackman, STEVE Thanks for getting back to me. I meant to call to discuss, but was out of town. He definitely would be agreeable to a virtual visit, and we did request that the [facility] review. When I return on Friday I will ask our nurse navigator to set up the visit. Will hold off on XRT unless he needs something for palliation. Yourshanta, Michael Previous Messages ----- Message ----- From: Niesha Galdamez MD Sent: 12/26/2023 3:21 PM EST To: Michael Boykin MD; Tristen Varela MD Wow, he did not get that much mileage out of BR which is very concerning. I would hold of on XRT. Would consider CAR T or bispecific. Would he be okay with VV with me? Did slides get sent here? ----- Message ----- From: Michael Boykin MD Sent: 12/25/2023 10:14 PM EST To: Tristen Varela MD; Niesha Galdamez MD documented in this encounterTrihealth Mccull[facility] Hospital02-22-2024 NoteWvumed[facility]02-22-2024 History of Present illness Narrative* Michael Boykin MD - 12/25/2023 6:19 AM EST PATIENT NAME: Katia Shaikh DATE: 12/25/2023 PRIMARY CARE PHYSICIAN: No PCP OTHER PHYSICIANS: Dr. Rivera, Dr. Emelia Gonzalez ([facility] [place]), Dr. Niesha Galdamez Portions of this encounter note have been copied from the note from 11/20/2023 and has been updated where appropriate, and reflect my current medical decision making from today. CC: This is a 68 year old male with recurrent lymphoma, seen for scheduled follow-up. INTERIM HISTORY: Since the patient's last visit here he underwent a repeat excisional biopsy of hisrecurrent right inguinal lymph node on 12/17/2023. As expected, pathology again confirmed non-Hodgkin lymphoma. However, the specific subtype was not delineated. Clinically the patient feels well. He has had no recurrent fevers, night sweats, or weight loss. Nounusual pain. He has mild discomfort in the [...] PATHOLOGY: 12/17/2023 Right inguinal lymph node biopsy (FR) [facility]: Mature B-cell non-Hodgkin lymphoma [facility] Pathology: Pending 05/07/2023 Right inguinal lymph node biopsy [facility]: Diffuse large B-cell lymphoma [facility] Pathology: Follicular lymphoma, grade 3A Comment: The histologic and immunophenotypic findings demonstrate 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 Definitive areas of diffuse large B-cell lymphoma arenot identified. LABS: Hemoglobin (g/dL) Date Value 12/25/2023 [...] Criteria score : 4 04/24/2023 PET scan ([facility]) Above the diaphragm the patient has significant [...] of a right inguinal lymph node at [facility]. Initial pathology per [facility] consistent with diffuse large B-cell lymphoma. However, on review per [facility] pathology it was felt to be consistent with follicular grade 3 lymphoma rather than diffuse large B-cell lymphoma. Hewas seen by Dr. Galdamez at [facility], and recommendations were to proceed with chemotherapy consisting of Bendamustine plus Rituxan x 6 cycles. BR cycle 1 started 06/10/2023 and the patient tolerated it well. Shortly after starting chemotherapy his back pain and palpable adenopathy resolved. He completed cycle 4 on 09/03/2023. Follow-up PET scan 09/23/2023 revealed persistent small uptake in the right inguinal area, otherwise complete resoluti on of all adenopathy. BR cycle 6 completed [...] referred his recent lymph node biopsy to [facility] pathology for their evaluation. If the node is consistent with a follicular lymphoma we will confer with [facility] hematology options for management which would include [...] indicated. Michael Boykin MD documented in this encounterTrihealth Mccull[facility]02-19-2024 Miscellaneous Notes* Telephone Encounter - Fifi Cobos - 12/22/2023 2:49 PM EST Sent for path to be sent. * Telephone Encounter - Ivania Jackman RN - 12/22/2023 2:16 PM EST Pt's lymph node biopsy was positive for NHL B-Cell Lymphoma. Dr Boykin would [facility]. Pt notified of the above and verbalizes understanding. BRM/Clerical: Path Review order pended. Ivania Jackman RN documented in this encounterTrihealth Mccullough-[facility]02-15-2024 Hospital Discharge instructions Follow Up Care 12/18/2023 10:34:54 With:MIGUEL LOFTON, TERRELL Kirk Address: [address] [place] [phone]- When: only if needed General Surgery [employer] 02-12-2024 Miscellaneous Notes* Telephone Encounter - Gretchen Arora - 12/15/2023 2:12 PM EST Roverto is scheduled to have his bx on Fri12-17-23. Rescheduled his follow up with you from 12-16 to 12-25. This is just an FYI. Please let me know if you need to see him prior to his bx. documented in this encounterTrihealth Mccullough-[facility]02-06-2024 NoteChief Complaint consultation for right inguinal mass HPI [...] s/p right inguinal lymph node biopsy for diagnosis;responded to chemotherapy, patient reports enlarging lump under [...] - Not Given Patient (more content not included)...[facility] CenterComment on above:Result Comment: Electronically Signed By: MIGUEL LOFTON, Chiquita Mas\Date and Time Signed: 12/09/23 18:51 [id number] NoteHNO ID: [id number] Author: MARLEE HARPER RN Service: ? Author Type: Registered Nurse Type: Progress Notes Filed: 11/20/2023 13:34 Note Text: Labs drawn on Friday with PET scan, no labs ordered for today and patient will see Dr. BoykinW[facility]01-18-2024 [facility]01-16-2024 History of Present illness Narrative* Esther Rivera RN - 11/18/2023 10:45 AM EST Radiology Service Progress Note DATE OF SERVICE: November 18, 2023 TIME: 10:57 AM PATIENT IDENTITY VERIFICATION COMPLETED USING TWO (2) STANDARD IDENTIFIERS: Name and Date of confirmed by patient verbally. FALL SCREENING: Has the patient had 2 falls in the last year or 1 fall with injury or currently using an Ambulatory Assistive Device (Walker, Cane, Wheelchair, Crutches, etc.)? No PATIENT GENDER DATA: Male EXAM: CT -CONTRAST INDUCED NEPHROPATHY RISK FACTORS: Not applicable CREATININE: Creatinine Date Value Ref Range Status 10/28/2023 0.96 0.73 - 1.22 mg/dL Final 09/30/2023 0.97 0.73 - 1.22 mg/dL Final 09/02/2023 0.98 0.73 - 1.22 mg/dL Final Estimated Glomerular Filtration Rate Date Value Ref Range Status 10/28/2023 87 >=60 mL/min/1.73m Final Comment: Estimated Glomerular Filtration Rate (eGFR) is calculated using the 2020 CKD-EPI creatinine equation. This equation utilizes serum creatinine, sex, and age as parameters. The creatinine assay has traceable calibration to isotope dilution- mass spectrometry. Refer to KDIGO guidelines for clinical interpretation. In patients with unstable renal function, e.g. those with acute kidney injury, the eGFRmay not accurately reflect actual GFR. P.O.C.T. RESULTS: N/A November 18, 2023 TREATMENT: N/A IV SITE: Ambulatory: A peripheral IV was started in the Left forearm with a Angio cath: 22 gauge. IV SITE APPEARANCE: Clean,Dry and Intact SIGNATURE: Esther Rivera RN PATIENT NAME: Katia Shaikh DATE: November 18, 2023 TIME: 10:57 AM * Ivania Juarez RT(R) - 11/18/2023 10:45 AM EST RADIOLOGY SERVICE PROGRESS NOTE SERVICE DATE: 11/18/2023 SERVICE TIME: 11:45 AM PATIENT IDENTITY VERIFICATION COMPLETED USING TWO (2) STANDARD IDENTIFIERS: Name and Date of confirmed by patient verbally POST EXAM PIV STATUS: Discontinued PROCEDURE TYPE: NM INJECT: PET/CT BODY SCAN. 10.6 mCi F18 FDG. No other medications given.. ADMINISTRATION TIME: 1052 PATIENT DISCHARGED TO: Ambulatory patient, left [place] department area. A Diagnostic radioactive procedure has taken place, with no further precautions necessary other than routine body substance precautions. 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 Would you like labs? 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 10.7 mCi F18 FDG. No other medications given.. ADMINISTRATION TIME: 1135 PATIENT DISCHARGED TO: Ambulatory patient, left [place] department area. A Diagnostic radioactive procedure has taken place, with no further precautions necessary other than routine body substance precautions. 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 Rivera, Dr. Emelia Gonzalez ([facility] [place]), Dr. Niesha Galdamez Portions of this encounter [...] PATHOLOGY: 05/07/2023 Right inguinal lymph node biopsy [facility]: Diffuse large B-cell lymphoma [facility] Pathology: Follicular [...] 09/02/2023 160 RADIOLOGY/OTHER STUDIES: 04/24/2023 PET scan ([facility]) Above the diaphragm the patient has significant [...] of a right inguinal lymph node at [facility]. Initial pathology per [facility] consistent with diffuse large B-cell lymphoma. However, on review per [facility] pathology it was felt to be consistent with follicular grade 3 lymphoma rather than diffuse large B-cell lymphoma. Hewas seen by Dr. Galdamez at [facility], and recommendations were to proceed [...] indicated. 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 Peripheral draw performed. 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 Rivera, Dr. Emelia Gonzalez ([facility] [place]), Dr. Niesha Galdamez Portions of this encounter [...] PATHOLOGY: 05/07/2023 Right inguinal lymph node biopsy [facility]: Diffuse large B-cell lymphoma [facility] Pathology: Follicular [...] 07/08/2023 146 RADIOLOGY/OTHER STUDIES: 04/24/2023 PET scan ([facility]) Above the diaphragm the patient has significant [...] of a right inguinal lymph node at [facility]. Initial pathology per [facility] consistent with diffuse large B-cell lymphoma. However, on review per [facility] pathology it was felt to be consistent with follicular grade 3 lymphoma rather than diffuse large B-cell lymphoma. Hewas seen by Dr. Galdamez at [facility], and recommendations were to proceed [...] indicated. 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 Ivania Jackman RN documented in this encounterCleveland [id number] Miscellaneous Notes* Telephone Encounter - Fifi Sommers RN - 06/27/2023 11:43 AM EDT Pt notified that both scripts were sent to [facility]. Pt states he's not sure that the [...] Sig: Use as directed. Authorizing Provider: CLEO FELZI APRN.CNP * Telephone Encounter - Fifi Sommers [...] advise Fifi Sommers RN documented in this encounterTrihealth Mccullough-[facility]08-23-2023 Miscellaneous Notes* Telephone Encounter - Ivania [...] well. 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) documented in this encounter [facility]08-10-2023 Miscellaneous Notes* Telephone Encounter - Fifi [...] back Fifi Sommers RN documented in this encounterTrihealth Mccullough-[facility]08-09-2023 Evaluation note* Diagnosis 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 Authorizing Provider: CLEO FELIZ APRN.MIRACLE * Telephone Encounter - Ivania Jackman RN - 06/06/2023 3:19 PM EDT Pt requesting his antiemetics be sent to [facility] pharmacy. States that he can get them cheaper there using a Good RX coupon. Cleo: Script pended. Ivania Jackman RN documented in this encounterTrihealth Mccullough-[facility]08-04-2023 Miscellaneous Notes* Telephone Encounter - Ivania Jackman [...] at least 1 month. 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 Authorizing Provider: CLEO FELIZ APRN.ELECTRICAL CONSTRUCTION PROJECT MANAGER * Telephone Encounter - Ivania Jackman RN - 06/05/2023 4:07 PM EDT Pt will be in tomorrow for education (Rituxan, Treanda) Scripts for antiemetics pended. Ivania Jackman RN documented in this encounterTrihealth Mccullough-[facility]08-03-2023 History of Present illness Narrative* Michael Boykin MD - 06/05/2023 8:10 AM EDT PATIENT NAME: Katia Shaikh DATE: 06/05/2023 PRIMARY CARE PHYSICIAN: No PCP OTHER PHYSICIANS: Dr. Rivera, Dr. Emelia Gonzalez ([facility] [place]), Dr. Niesha Galdamez Portions of this encounter note have been copied from my note from 05/22/2023 and has been updated where appropriate, and reflect my current medical decision making from today. CC: This is a 67 year old male with recurrent lymphoma, seen for scheduled follow-up. INTERIM HISTORY: Since the patient's last visit here his recent lymph node biopsy was reviewed by [facility] pathology, and it was felt to be consistent with follicular grade 3 lymphoma rather than diffuse large B-cell lymphoma. He was seen by Dr. Galdamez at [facility], and recommendations were to proceed with chemotherapy consisting of Bendamustine plus Rituxan x6 cycles. In preparation for chemotherapy the patient underwent port placement by Dr. Nill, and he tolerated the procedure well. Over [...] PATHOLOGY: 05/07/2023 Right inguinal lymph node biopsy [facility]: Diffuse large B-cell lymphoma [facility] Pathology: Follicular [...] 06/05/2023 334 RADIOLOGY/OTHER STUDIES: 04/24/2023 PET scan ([facility]) Above the diaphragm the patient has significant [...] of a right inguinal lymph node at [facility]. Initial pathology per [facility] consistent with diffuse large B-cell lymphoma. However, on review per [facility] pathology it was felt to be consistent with follicular grade 3 lymphoma rather than diffuse large B-cell lymphoma. Hewas seen by Dr. Galdamez at [facility], and recommendations were to proceed [...] MD CC: Dr. Rivera, Dr. 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 No answer to left detailed message. Niesha Galdamez MD Date: June 01, 2023. documented in this encounterTrihealth Mccull[facility]07-25-2023 Nurse Note* Danielle Lazaro RN - 05/27/2023 2:51 PM EDT Additional intake questions: Has the patient had fever, nausea, vomiting, diarrhea, constipation, fatigue for > 1 week? No Does the patient have a decreased appetite? No Does patient want to see a Wheelchair Driver? No (yes to any of above refer [...] By: Danielle Lazaro RN documented in this encounterTrihealth Mccull[facility]07-25-2023 History of Present illness Narrative* Niesha Galdamez MD - 05/27/2023 2:43 PM EDT Images from the original note were not included. [facility] DEPARTMENT OF HEMATOLOGY AND MEDICAL ONCOLOGY [...] decided to establish with Dr. Boykin at [facility].He does have some fatigue and just minimal weight loss of about five pounds is otherwise feeling well. No fevers, drenching night sweats, unintentional weight loss. No enlarged lymph nodes. PAST MEDICAL HISTORY: DLBCL arising from [place] Hypothyroidism PAST SURGICAL HISTORY: LN biopsy Bronchoscopy Thoracentesis FAMILY HISTORY: No family history of cancer SOCIAL HISTORY: Lives in [place], [place] to Jennifer who is present today Retired from [employer] Likes car racing with his son Previous [...] 0.9% 10 mL injection (DEFINITY) INTRAVENOUS DIRECTED Michael Herrera MD sodium chloride 0.9 % (flush) 10 [...] Lymph 1.00 - 4.00 k/uL 0.69 (L) Ponce% % 11.5 Abs Ponce <0.87 k/uL 1.11 (H) Eosin% % 2.8 [...] Last Resulted: 04/24/23 7:12 PM Received From: [facility] Result Received: 05/01/23 10:37 AM ASSESSMENT [...] needed. Niesha Galdamez MD Associate Staff Physician [facility] [address] [place] [address] Pager: [phone] CC: Michael Boykin ([place]) [address] [place] [address] [place] [id number] . ADDENDUM: Case presented at tumor board and pathologist explained that [facility] Path review shows follicular lymphoma grade 3A and NOT DLBCL. Outside slides ([id number], 05/07/2023), [place], [place] Right inguinal lymph node, excisional biopsy: [...] Dr. Ashutosh Galdamez MD documented in this encounterTrihealth Mcc[facility]07-24-2023 Miscellaneous Notes* Telephone Encounter - Fabi Freed - 05/26/2023 2:[address] Rivera office they received this referral and have patient scheduled with Dr. Rivera for portplacement on 05/28 @[facility]. Fabi Wong * Telephone Encounter - Leslie [...] the patient. Thank you. documented in this encounterTrihealth Mccull[facility]07-20-2023 History of Present illness Narrative* Michael Boykin MD - 05/22/2023 8:17 AM EDT PATIENT NAME: Katia Shaikh DATE: 05/22/2023 PRIMARY CARE PHYSICIAN: No PCP OTHER PHYSICIANS: Dr. Rivera, Dr. Emelia Gonzalez ([facility] [place]) Portions of this encounter note have been [...] PATHOLOGY: 05/07/2023 Right inguinal lymph node biopsy ([facility]) Diffuse large B-cell lymphoma LABS: Hemoglobin (g/dL) Date Value 05/13/2023 13.4 Hematocrit (%) Date Value 05/13/2023 42.3 WBC (k/uL) Date Value 05/13/2023 9.67 Platelet Count (k/uL) Date Value 05/13/2023 306 RADIOLOGY/OTHER STUDIES: [facility] Above the diaphragm the patient has significant [...] of a right inguinal lymph node at [facility]. Pathology revealed diffuse large B-cell lymphoma. Currently [...] his recent biopsy to be reviewed at [facility]. Unfortunately, his initial biopsy from 2001 is not available for review. He will be referred to [facility] lymphoma division for specific recommendations. [...] MD CC: Dr. Rivera, Dr. Emelia Gonzalez ([facility] [place]) documented in this encounterTrihealth Mcc[facility]07-19-2023 Miscellaneous Notes* Telephone Encounter - Ivania Jackman RN - 05/21/2023 3:24 PM EDT Per pt, his 2001 lymph node biopsy was done per Dr Rivera @ [facility]. Spoke w/ Claire in Medical Records. She reports that they only keep records for 10 years. They will not be able to retrieve pt's original path report. Ivania Jackman RN documented in this encounterTrihealth Mcc[facility]07-18-2023 Miscellaneous Notes* Telephone Encounter - Emma Mendoza - 05/20/2023 2:39 PM EDT Spoke to Alma Rosa at [facility], she has order and will call patient to schedule. * Telephone Encounter - Ivania Jackman RN - 05/19/2023 3:[address] Boykin, pt's LN biopsy was positive for DLBCL. Recommends we get an ECHO and port placed. Aniket to reach out to [facility] doctor regarding treatment options. Pt notified and verbalizes understanding. Agrees to ECHO, but wishes to wait on port until he speaks w/ Dr at 's appointment. BRM: ECHO order pended. Clerical: Please schedule ECHO at [facility]. Pt would prefer an appointment next week if possible. Ivania Jackman RN documented in this encounterTrihealth Mcc[facility]07-14-2023 Miscellaneous Notes* Telephone Encounter - Gretchen Arora - 05/16/2023 9:51 AM EDT 2 nd opinion pathology requested from [facility] to be sent to [facility] for review. documented in this encounterTrihealth Mcc[facility]07-11-2023 History of Present illness Narrative* Michael Boykin MD - 05/13/2023 8:16 AM EDT PATIENT NAME: Katia Shaikh DATE: 05/13/2023 PRIMARY CARE PHYSICIAN: No PCP OTHER PHYSICIANS: Dr. Rivera, Dr. Emelia Gonzalez ([facility] [place]) HPI: This is a 67 year old [...] of a right inguinal lymph node at [facility]. Pathology currently pending. Currently the patient's main [...] PATHOLOGY: 05/07/2023 Right inguinal lymph node biopsy ([facility]) Pathology pending LABS: Hemoglobin (g/dL) Date Value 05/13/2023 13.4 Hematocrit (%) Date Value 05/13/2023 42.3 WBC (k/uL) Date Value 05/13/2023 9.67 Platelet Count (k/uL) Date Value 05/13/2023 306 RADIOLOGY/OTHER STUDIES: 04/24/2023 PET scan ([facility]) Above the diaphragm the patient has significant [...] of a right inguinal lymph node at [facility]. Pathology currently pending. Most likely the patient [...] MD CC: Dr. Rivera, Dr. Emelia Gonzalez ([facility] [place]) documented in this encounterTrihealth Mcc[facility]04-02-2023 Miscellaneous Notes* Telephone Encounter - RamírezFebruary - 08/04/2023 11:54 AM EDT Patient coming in Friday08/05/23 for follow up treatment. Please add labs orders. Thanks. Ceci Ramírez MA documented [facility] No data available for this section General Surgery Annmarie Evaluation note* Diagnosis Non-Hodgkin's lymphoma, unspecified body region, unspecified non-Hodgkin lymphoma type (HCC) Hypothyroidism, unspecified type documented in this encounter [employer] Phone: evaluation note* Diagnosis Non-Hodgkin's lymphoma, unspecified body region, unspecified non-Hodgkin lymphoma type (HCC) Hypothyroidism, unspecified type documented in this encounter [facility] [employer] Phone: [email or web address] note* Diagnosis Non-Hodgkin lymphoma of lymph nodes of multiple regions, unspecified non-Hodgkin lymphoma type (HCC)- Primary Acquired hypothyroidism Unspecified hypothyroidism documented in this encounter [facility] note* Diagnosis 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)- Primary documented in this encounter [facility] note* Diagnosis History of diffuse large B-cell lymphoma- Primary 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) 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) documented in this encounter [facility] note* Diagnosis 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) documented in this encounter [facility] note* Diagnosis Non-Hodgkin lymphoma of lymph nodes of multiple regions, unspecified non-Hodgkin lymphoma type (HCC)- Primary DE DIOS (dyspnea on exertion) Other dyspnea and respiratory abnormality documented in this encounter [facility] note* Diagnosis 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 documented in this encounter [facility] note* Diagnosis 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 [facility]* Diagnosis 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) documented in this encounter [facility] note* Diagnosis Non-Hodgkin lymphoma of lymph nodes of multiple regions, unspecified non-Hodgkin lymphoma type (HCC)- Primary [facility]* Diagnosis Non-Hodgkin lymphoma of lymph nodes of multiple regions, unspecified non-Hodgkin lymphoma type (HCC) [facility]* Diagnosis 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 Acquired hypothyroidism Unspecified hypothyroidism History of diffuse large B-cell lymphoma documented in this encounter [facility]* Diagnosis Follicular lymphoma grade IIIa, unspecified body region (HCC)- Primary documented in this [facility]* Diagnosis 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 History of follicular lymphoma documented in this encounter [facility]* Diagnosis Non-Hodgkin lymphoma of lymph nodes of multiple regions, unspecified non-Hodgkin lymphoma type (HCC)- Primary 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) [facility]* Diagnosis 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 documented in this encounter [facility]* Diagnosis Diffuse large B-cell lymphoma, unspecified body region [facility] Diagnosis High grade B-cell lymphoma (HCC)- Primary Other malignant lymphomas, unspecified site, extranodal and solid organ sites History of follicular lymphoma [facility]* Diagnosis 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 History of follicular lymphoma Diffuse large B-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) documented in this encounter [facility]* Diagnosis Personal history of diseases of blood and blood-forming organs Diffuse large B-cell lymphoma, unspecified body region (HCC) Encounter for monitoring cardiotoxic drug therapy Encounter for therapeutic drug monitoring Diffuse large B-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) [facility]* Diagnosis Diffuse large B-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) Personal history of diseases of blood and blood-forming organs Diffuse large B-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) [facility]* Diagnosis 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 large B-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) [facility] Diagnosis Diffuse large B-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)- Primary Diffuse large B-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) [facility]* Diagnosis Diffuse large B-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) [facility]* Diagnosis 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 History of follicular lymphoma [facility]* Diagnosis Diffuse large B-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)- Primary [facility]* Diagnosis Follicular lymphoma grade IIIa, unspecified body region (HCC)- Primary [facility]* Diagnosis Follicular lymphoma grade IIIa, unspecified body region (HCC)- Primary [facility]* Diagnosis Diffuse large B-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)- Primary [facility]* Diagnosis 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 [facility]* Diagnosis 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 History of follicular lymphoma CINV (chemotherapy-induced nausea and vomiting) Nausea with vomiting At high risk of tumor lysis syndrome Other specified conditions influencing health status [facility]* Diagnosis Diffuse large B-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)- Primary [facility]* Diagnosis Diffuse large B-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)- Primary [facility]* Diagnosis Encounter for antineoplastic chemotherapy- Primary Diffuse large B-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) [facility] Diagnosis Diffuse large B-cell lymphoma, unspecified body region (HCC)- Primary History of engineered cell therapy infusion Other specified personal history presenting hazards to health [facility]* Diagnosis Diffuse large B-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)- Primary documented in this encounter [facility]* Diagnosis History of engineered cell therapy infusion- Primary Other specified personal history presenting hazards to health Diffuse large B-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) Pancytopenia (HCC) Other pancytopenia At risk for infection due to immunosuppression Immunodeficiency (HCC) Unspecified immunity deficiency At risk for fluid and electrolyte imbalance documented in this encounter [facility] note* Diagnosis Diffuse large B-cell lymphoma, unspecified body region (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 Other specified personal history presenting hazards to health documented in this encounter [facility] note* Diagnosis History of engineered cell therapy infusion- Primary Other specified personal history presenting hazards to health Diffuse large B-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) Immunodeficiency (HCC) Unspecified immunity deficiency Other pancytopenia (HCC) Other pancytopenia documented in this encounter [facility] note* Diagnosis Complication of immune effector cellular therapy, initial encounter- Primary [facility]* Diagnosis Diffuse large B-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) documented in this encounter [facility] note* Diagnosis Diffuse large B-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)- Primary Lymphedema Other lymphedema documented in this encounter [facility] note* Diagnosis Diffuse large B-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 Other specified personal history presenting hazards to health documented in this encounter [facility] note* Diagnosis Diffuse large B-cell lymphoma, unspecified body region (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 Other specified personal history presenting hazards to health documented in this encounter [facility] note* Diagnosis 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) documented in this encounter [facility] note* Diagnosis Diffuse large B-cell lymphoma, unspecified body region (HCC) documented in this encounter [facility] note* Diagnosis Diffuse large B-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)- Primary Lymphedema Other lymphedema documented in this encounter [facility] Discharge instructions No data available for this section General Surgery Annmarie Progress note No data available for this section General Surgery Annmarie Beaulieu Reason for referral (narrative)* Outpatient Procedure (Routine) - Pending Review Specialty Diagnoses / Procedures Referred By Contac t Referred To Contact [facility] Diagnoses Non-Hodgkin lymphoma of lymph nodes of multiple regions, unspecified non-Hodgkin lymphoma type (HCC) DE DIOS (dyspnea on exertion) Procedures ECHO ECHO TTHRC R-T 2D W/WOM-MODE COMPL SPEC&COLR D Michael Boykin MD [address] [place] [address] [place] [address] [facility] [place] [address] Referral ID Status Reason Start Date Expiration Date Visits Requested Visits Authorized [id number] Pending Review Auto-Generat ed Referral 05/19/2023 05/18/2024 1 1 [facility] for referral (narrative)* Diagnostic Procedure Only (Routine) - Authorized Specialty Diagnoses / Procedures Referred By Contac t Referred To Contact MOLECULAR & FUNCTIONAL IMAGING Diagnoses 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) Procedures NM PET/CT SKULL-THIGH SUBSEQUENT PET IMAGING CT ATTENUATION SKULL BASE MID-THIGH Niesha Galdamez MD [address] [place] [address] Molecular & Functional Imaging [address] [place] [address] Referral ID Status Reason Start Date Expiration Date Visits Requested Visits Authorized [id number] Authorized Auto-Generat ed Referral 01/20/2024 02/18/2025 1 1 [facility] for referral (narrative)* Diagnostic Procedure Only (Routine) - Authorized Specialty Diagnoses / Procedures Referred By Contac t Referred To Contact MOLECULAR & FUNCTIONAL IMAGING Diagnoses Diffuse large B-cell lymphoma, unspecified body region (HCC) Procedures NM PET/CT SKULL-THIGH SUBSEQUENT PET IMAGING CT ATTENUATION SKULL BASE MID-THIGH Niesha Galdamez MD [address] [place] [address] Molecular [facility] Functional Imaging [address] [place] [address] Referral ID Status Reason Start Date Expiration Date Visits Requested Visits Authorized [id number] Authorized Auto-Generat ed Referral 02/18/2024 03/19/2025 1 1 * Consult, Test, Treat (Routine) - Authorized Specialty Diagnoses / Procedures Referred By Sergio t Referred To Contact Diagnoses Diffuse large B-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) Procedures TAUSSIG FOLLOW-UP OFFICE/OUTPATIENT NEW HIGH MDM 60 MINUTES Niesha Galdamez MD [address] [place] [address] Referral ID Status Reason Start Date Expiration Date Visits Requested Visits Authorized [id number] Authorized PCP Requested Referral 02/18/2024 02/17/2025 1 1 * Outpatient Procedure (Routine) - Authorized Specialty Diagnoses / Procedures Referred By Contyokasta t Referred To Contact [facility] Diagnoses Diffuse large B-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) Encounter for monitoring cardiotoxic drug therapy Procedures ECHO ECHO TTHRC R-T 2D W/WOM-MODE COMPL SPEC&COLR D Niesha Galdamez MD [address] [place] [address] [facility] [id number] [place] [address] Referral ID Status Reason Start Date Expiration Date Visits Requested Visits Authorized [id number] Authorized Auto-Generat ed Referral 02/18/2024 02/17/2025 1 1 * Outpatient Procedure (Routine) - Authorized Specialty Diagnoses / Procedures Referred By Contyokasta t Referred To Contact [facility] Diagnoses Diffuse large B-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) Procedures ECG COMPLETE ECG ROUTINE ECG W/LEAST 12 LDS W/I&R Niesha Galdamez MD [address] [place] [address] [facility] [place] [address] [place] [address] Referral ID Status Reason Start Date Expiration Date Visits Requested Visits Authorized [id number] Authorized Auto-Generat ed Referral 02/18/2024 02/17/2025 1 1 [facility] for referral (narrative)* Diagnostic Procedure Only (Routine) - Pending Review Specialty Diagnoses / Procedures Referred By Contac t Referred To Contact MOLECULAR & FUNCTIONAL IMAGING Diagnoses Diffuse large B-cell lymphoma, unspecified body region (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 Procedures NM PET/CT SKULL-THIGH SUBSEQUENT PET IMAGING CT ATTENUATION SKULL BASE MID-THIGH Niesha Galdamez MD [address] [place] [address] Molecular & Functional Imaging [address] [place] [address] Referral ID Status Reason Start Date Expiration Date Visits Requested Visits Authorized [id number] Pending Review Auto-Generat ed Referral 04/06/2024 05/06/2025 1 1 [facility] for referral (narrative)* Diagnostic Procedure Only (Routine) - New Request Specialty Diagnoses / Procedures Referred By Contac t Referred To Contact MOLECULAR & FUNCTIONAL IMAGING Diagnoses Diffuse large B-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) Procedures NM PET/CT SKULL-THIGH SUBSEQUENT PET IMAGING CT ATTENUATION SKULL BASE MID-THIGH Michael Boykin MD [address] [place] [address] [place] [address] Molecular & Functional Imaging [address] [place] [address] Referral ID Status Reason Start Date Expiration Date Visits Requested Visits Authorized [id number] New Request Auto-Generat ed Referral 06/17/2024 07/17/2025 1 1 [facility] for referral (narrative)* Diagnostic Procedure Only (Routine) - Closed Specialty Diagnoses / Procedures Referred By Contac t Referred To Contact MOLECULAR & FUNCTIONAL IMAGING Diagnoses Diffuse large B-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) Procedures NM PET/CT SKULL-THIGH SUBSEQUENT PET IMAGING CT ATTENUATION SKULL BASE MID-THIGH Michael Boykin MD [address] [place] [address] [address] [place], [facility] Molecular & Functional Imaging [address] [place] [address] Referral ID Status Reason Start Date Expiration Date V isits Requested Visits Authorized [id number] Closed Auto-Generate d Referral 06/17/2024 07/17/2025 1 1 [facility] for referral (narrative)* Diagnostic Procedure Only (Routine) - Closed Specialty Diagnoses / Procedures Referred By Contac t Referred To Contact MOLECULAR & FUNCTIONAL IMAGING Diagnoses Diffuse large B-cell lymphoma, unspecified body region (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 Procedures NM PET/CT SKULL-THIGH SUBSEQUENT PET IMAGING CT ATTENUATION SKULL BASE MID-THIGH Niesha Galdamez MD [address] [place] [address] Molecular & Functional Imaging [address] [place] [address] Referral ID Status Reason Start Date Expiration Date V isits Requested Visits Authorized [id number] Closed Auto-Generate d Referral 04/06/2024 05/06/2025 1 1 [facility] for referral (narrative)* Diagnostic Procedure Only (Routine) - Closed Specialty Diagnoses / Procedures Referred By Contac t Referred To Contact MOLECULAR & FUNCTIONAL IMAGING Diagnoses 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) Procedures NM PET/CT SKULL-THIGH SUBSEQUENT PET IMAGING CT ATTENUATION SKULL BASE MID-THIGH Niesha Galdamez MD [address] [id number] Molecular & Functional Imaging [address] [place], [place] [id number] Referral ID Status Reason Start Date Expiration Date V isits Requested Visits Authorized [id number] Closed Auto-Generate d Referral 01/20/2024 02/18/2025 1 1 [facility] for referral (narrative)* Diagnostic Procedure Only (Routine) - Closed Specialty Diagnoses / Procedures Referred By Contac t Referred To Contact MOLECULAR & FUNCTIONAL IMAGING Diagnoses Diffuse large B-cell lymphoma, unspecified body region (HCC) Procedures NM PET/CT SKULL-THIGH SUBSEQUENT PET IMAGING CT ATTENUATION SKULL BASE MID-THIGH Niesha Galdamez MD [address] [place] [address] Molecular & Functional Imaging [address] [place] [address] Referral ID Status Reason Start Date Expiration Date V isits Requested Visits Authorized [id number] Closed Auto-Generate d Referral 01/21/2024 02/18/2025 1 1 [facility] for referral (narrative)* Diagnostic Procedure Only (Routine) - Closed Specialty Diagnoses / Procedures Referred By Contac t Referred To Contact MOLECULAR & FUNCTIONAL IMAGING Diagnoses Diffuse large B-cell lymphoma, unspecified body region (HCC) Procedures NM PET/CT SKULL-THIGH SUBSEQUENT PET IMAGING CT ATTENUATION SKULL BASE MID-THIGH Cleo Feliz APRN.CNP [address] [place] [address] [place] [address] Molecular & Functional Imaging [address] [place] [address] Referral ID Status Reason Start Date Expiration Date V isits Requested Visits Authorized [id number] Closed Auto-Generate d Referral 10/28/2023 11/26/2024 1 1 [facility] Assessments Diagnosis Non-Hodgkin's lymphoma, unspecified body region, unspecified non-Hodgkin lymphoma type (HCC) Hypothyroidism, unspecified type Encounter for screening for lung cancer Advance Directives Documents on File Type Date Recorded 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 Advance Directives and Living Will Power of Manager Occupational Documents on File Type Date Recorded 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 ACP-Advance Directive ACP-Power of Manager Occupational Date Activated Date Inactivated Comments 04/15/2024 2:33 AM 04/17/2024 6:17 PM Question Answer Comments Full Code Order Discussed With: Patient Date Activated Date Inactivated Comments 04/15/2024 2:33 AM 04/17/2024 6:17 PM Question Answer Comments Full Code Order Discussed With: Patient Summary Purpose Family History No Family History Records Found No data available for this section No Family History Records Found No data available for this section No data available for this section No Family History Records FoundNo Family History Records Found Reason for Referral Specialty Diagnoses / Procedures Referred By Contac t Referred To Contact Diagnoses Follicular lymphoma grade IIIa, unspecified body region (HCC) Procedures CT SIM PLANNING RADIATION ONCOLOGY THER RAD SIMULAJ-AIDED FIELD SETTING COMPLEX Tristen Varela MD [address] [place] [address] [place] [address] Referral ID Status Reason Start Date Expiration Date Visits Requested Visits Authorized [id number] Pending Review PCP Requested Referral 03/15/2024 06/13/2024 1 1 Specialty Diagnoses / Procedures Referred By Contac t Referred To Contact Diagnoses Diffuse large B-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) Procedures CONSULT TO HEMATOLOGY/ONCOLOGY OFFICE/OUTPATIENT [facility] 60-74 MINUTES Michael Boykin MD [address] [place] [address] [place] [address] Referral ID Status Reason Start Date Expiration Date Visits Requested Visits Authorized [id number] Authorized PCP Requested Referral 05/22/2023 05/21/2024 1 [...] INTRAVENOUS, ONCE, 1 dose, On Fri06/11/23 at 929, Refrigerate. New Bag/Syringe/Bottle 06/11/2023 9:21 AM EDT [...] [place] DATE CREATED AUTHOR AUTHOR'S ORGANIZ ATION 02/03/2024 [facility] DATE CREATED AUTHOR AUTHOR'S ORGANIZ ATION 07/16/2024 [facility] DATE CREATED AUTHOR AUTHOR'S ORGANIZ ATION 07/20/2024 [facility] Patient Care team informatio n (unrecognized section and content) Technical Information Specialist Relationship Specialty Start Date End Date Cleo Feliz, GRAB DRIVER.ELECTRICAL CONSTRUCTION PROJECT MANAGER [address] [facility] [place] [address] Nurse Practitioner Hematology/Oncology 06/05/23 Michael Boykin MD [address] [place] [address] Physician Hematology/Oncology 06/05/23 Ivania Jackman, STEVE [address] [facility] [place] [address] Specialty Felt Finisher Hematology/Oncology 06/05/23 Technical Information Specialist Relationship Specialty Start Date End Date Cleo Feliz, GRAB DRIVER.ELECTRICAL CONSTRUCTION PROJECT MANAGER [address] [facility] [place] [address] Nurse Practitioner Hematology/Oncology 06/05/23 Michael Boykin MD [address] [facility] [place] [address] Physician Hematology/Oncology 06/05/23 Ivania Jackman, STEVE [address] [facility] [place] [address] Specialty Felt Finisher Hematology/Oncology 06/05/23 Technical Information Specialist Relationship Specialty Start Date End Date Cleo Feliz, GRAB DRIVER.ELECTRICAL CONSTRUCTION PROJECT MANAGER [address] [facility] [place] [address] Nurse Practitioner Hematology/Oncology 06/05/23 Michael Boykin MD [address] [facility] [place] [address] Physician Hematology/Oncology 06/05/23 Ivania Jackman, RN [address] [facility] [place] [address] Specialty Felt Finisher Hematology/Oncology 06/05/23 Technical Information Specialist Relationship Specialty Start Date End Date Cleo Feliz, GRAB DRIVER.ELECTRICAL CONSTRUCTION PROJECT MANAGER [address] [facility] [place] [address] Nurse Practitioner Hematology/Oncology 06/05/23 Michael Boykin MD [address] [facility] [place] [address] Physician Hematology/Oncology 06/05/23 Ivania Jackman, STEVE [address] [facility] [place] [address] Specialty Felt Finisher Hematology/Oncology 06/05/23 Technical Information Specialist Relationship Specialty Start Date End Date Cleo Feliz, GRAB DRIVER.ELECTRICAL CONSTRUCTION PROJECT MANAGER [address] [facility] [place] [address] Nurse Practitioner Hematology/Oncology 06/05/23 Michael Boykin MD [address] [facility] [place] [address] Physician Hematology/Oncology 06/05/23 Ivania Jackman, RN [address] [facility] [place] [address] Specialty Felt Finisher Hematology/Oncology 06/05/23 Technical Information Specialist Relationship Specialty Start Date End Date Cleo Feliz, GRAB DRIVER.ELECTRICAL CONSTRUCTION PROJECT MANAGER [address] [facility] [place] [address] Nurse Practitioner Hematology/Oncology 06/05/23 Michael Boykin MD [address] [facility] [place] [address] Physician Hematology/Oncology 06/05/23 Ivania Jackman, RN [address] [facility] [place] [address] Specialty Felt Finisher Hematology/Oncology 06/05/23 Technical Information Specialist Relationship Specialty Start Date End Date Cleo Feliz, GRAB DRIVER.ELECTRICAL CONSTRUCTION PROJECT MANAGER [address] [place] [address] Nurse Practitioner Hematology/Oncology 06/05/23 Michael Boykin MD [address] [place] [address] Physician Hematology/Oncology 06/05/23 Ivania Jackman, STEVE [address] [facility] [place] [address] Specialty Felt Finisher Hematology/Oncology 06/05/23 Technical Information Specialist Relationship Specialty Start Date End Date Cleo Feliz, GRAB DRIVER.ELECTRICAL CONSTRUCTION PROJECT MANAGER [address] [place] [address] Nurse Practitioner Hematology/Oncology 06/05/23 Michael Boykin MD [address] [facility] [place] [address] Physician Hematology/Oncology 06/05/23 Ivania Jackman, RN [address] [facility] [place] [address] Specialty Felt Finisher Hematology/Oncology 06/05/23 Technical Information Specialist Relationship Specialty Start Date End Date Cleo Feliz, GRAB DRIVER.ELECTRICAL CONSTRUCTION PROJECT MANAGER [address] [facility] [place] [address] Nurse Practitioner Hematology/Oncology 06/05/23 Michael Boykin MD [address] [facility] [place] [address] Physician Hematology/Oncology 06/05/23 Ivania Jackman, RN [address] [facility] [place] [address] Specialty Felt Finisher Hematology/Oncology 06/05/23 Technical Information Specialist Relationship Specialty Start Date End Date Cleo Feliz, GRAB DRIVER.ELECTRICAL CONSTRUCTION PROJECT MANAGER [address] [facility] [place] [address] Nurse Practitioner Hematology/Oncology 06/05/23 Michael Boykin MD [address] [facility] [place] [address] Physician Hematology/Oncology 06/05/23 Ivania Jackman, STEVE [address] [facility] [place] [address] Specialty Felt Finisher Hematology/Oncology 06/05/23 Technical Information Specialist Relationship Specialty Start Date End Date Cleo Feliz, GRAB DRIVER.ELECTRICAL CONSTRUCTION PROJECT MANAGER [address] [facility] [place] [address] Nurse Practitioner Hematology/Oncology 06/05/23 Michael Boykin MD [address] [facility] [place] [address] Physician Hematology/Oncology 06/05/23 Ivania Jackman, RN [address] [facility] [place] [address] Specialty Felt Finisher Hematology/Oncology 06/05/23 Technical Information Specialist Relationship Specialty Start Date End Date Cleo Feliz, GRAB DRIVER.ELECTRICAL CONSTRUCTION PROJECT MANAGER [address] [facility] [place] [address] Nurse Practitioner Hematology/Oncology 06/05/23 Michael Boykin MD [address] [place] [address] Physician Hematology/Oncology 06/05/23 Ivania Jackman, STEVE [address] [facility] [place] [address] Specialty Felt Finisher Hematology/Oncology 06/05/23 Technical Information Specialist Relationship Specialty Start Date End Date Cleo Feliz, GRAB DRIVER.ELECTRICAL CONSTRUCTION PROJECT MANAGER [address] [place] [address] Nurse Practitioner Hematology/Oncology 06/05/23 Michael Boykin MD [address] [place] [address] Physician Hematology/Oncology 06/05/23 Ivania Jackman, STEVE [address] [facility] [place] [address] Specialty Felt Finisher Hematology/Oncology 06/05/23 Technical Information Specialist Relationship Specialty Start Date End Date Cleo Feliz, GRAB DRIVER.ELECTRICAL CONSTRUCTION PROJECT MANAGER [address] [place] [address] Nurse Practitioner Hematology/Oncology 06/05/23 Michael Boykin MD [address] [facility] [place] [address] Physician Hematology/Oncology 06/05/23 Ivania Jackman, RN [address] [place] [address] Specialty Felt Finisher Hematology/Oncology 06/05/23 Technical Information Specialist Relationship Specialty Start Date End Date Cleo Feliz, GRAB DRIVER.ELECTRICAL CONSTRUCTION PROJECT MANAGER [address] [place] [address] Nurse Practitioner Hematology/Oncology 06/05/23 Michael Boykin MD [address] [facility] [place] [address] Physician Hematology/Oncology 06/05/23 Ivania Jackman, STEVE [address] [facility] [place] [address] Specialty Felt Finisher Hematology/Oncology 06/05/23 Technical Information Specialist Relationship Specialty Start Date End Date Cleo Feliz, GRAB DRIVER.ELECTRICAL CONSTRUCTION PROJECT MANAGER [address] [facility] [place] [address] Nurse Practitioner Hematology/Oncology 06/05/23 Michael Boykin MD [address] [facility] [place] [address] Physician Hematology/Oncology 06/05/23 Ivania Jackman, STEVE [address] [facility] [place] [address] Specialty Felt Finisher Hematology/Oncology 06/05/23 Technical Information Specialist Relationship Specialty Start Date End Date Cleo Feliz, GRAB DRIVER.ELECTRICAL CONSTRUCTION PROJECT MANAGER [address] [facility] [place] [address] Nurse Practitioner Hematology/Oncology 06/05/23 Michael Boykin MD [address] [facility] [place] [address] Physician Hematology/Oncology 06/05/23 Ivania Jackman, RN [address] [facility] [place] [address] Specialty Felt Finisher Hematology/Oncology 06/05/23 Technical Information Specialist Relationship Specialty Start Date End Date Cleo Feliz, GRAB DRIVER.ELECTRICAL CONSTRUCTION PROJECT MANAGER [address] [place] [address] Nurse Practitioner Hematology/Oncology 06/05/23 Micahel Boykin MD [address] [place] [address] Physician Hematology/Oncology 06/05/23 Ivania Jackman, STEVE [address] [facility] [place] [address] Specialty Felt Finisher Hematology/Oncology 06/05/23 Technical Information Specialist Relationship Specialty Start Date End Date Cleo Feliz, GRAB DRIVER.ELECTRICAL CONSTRUCTION PROJECT MANAGER [address] [facility] [place] [address] Nurse Practitioner Hematology/Oncology 06/05/23 Michael Boykin MD [address] [facility] [place] [address] Physician Hematology/Oncology 06/05/23 Ivania Jackman, STEVE [address] [facility] [place] [address] Specialty Felt Finisher Hematology/Oncology 06/05/23 Technical Information Specialist Relationship Specialty Start Date End Date Cleo Feliz, GRAB DRIVER.ELECTRICAL CONSTRUCTION PROJECT MANAGER [address] [facility] [place] [address] Nurse Practitioner Hematology/Oncology 06/05/23 Michael Boykin MD [address] [facility] [place] [address] Physician Hematology/Oncology 06/05/23 Ivania Jackman, STEVE [address] [facility] [place] [address] Specialty Felt Finisher Hematology/Oncology 06/05/23 Technical Information Specialist Relationship Specialty Start Date End Date Cleo Feliz, GRAB DRIVER.ELECTRICAL CONSTRUCTION PROJECT MANAGER [address] [facility] [place] [address] Nurse Practitioner Hematology/Oncology 06/05/23 Michael Boykin MD [address] [place] [address] [place] [address] Physician Hematology/Oncology 06/05/23 Ivania Jackman, STEVE [address] [facility] [place] [address] Specialty Felt Finisher Hematology/Oncology 06/05/23 Technical Information Specialist Relationship Specialty Start Date End Date Dorcas Bolanos MD [facility] [address] [place] [id number] Hematology 01/07/24 Niesha Galdamez MD [address] [facility] [place] [address] Hematology and Oncology 01/08/24 Michael Boykin MD [address] [place] [address] [place] [address] Hematology and Oncology 01/08/24 Technical Information Specialist Relationship Specialty Start Date End Date Emelia Gonzalez MD [address] [place] [address] PCP - General Hematology/Oncology 02/02/24 Cleo Feliz, JOSE ALBERTO.ELECTRICAL CONSTRUCTION PROJECT MANAGER [address] [facility] [place] [address] Nurse Practitioner Hematology/Oncology 06/05/23 Michael Boykin MD [address] [facility] [place] [address] Physician Hematology/Oncology 06/05/23 Ivania Jackman, RN [address] [facility] [place] [address] Specialty Felt Finisher Hematology/Oncology 06/05/23 Technical Information Specialist Relationship Specialty Start Date End Date Emelia Gonzalez MD [address] [place], [place] [id number] PCP - General Hematology/Oncology 02/02/24 Cleo Feliz, GRAB DRIVER.ELECTRICAL CONSTRUCTION PROJECT MANAGER [address] [facility] [place] [address] Nurse Practitioner Hematology/Oncology 06/05/23 Michael Boykin MD [address] [facility] [place] [address] Physician Hematology/Oncology 06/05/23 Ivania Jackman, RN [address] [facility] [place] [address] Specialty Felt Finisher Hematology/Oncology 06/05/23 Technical Information Specialist Relationship Specialty Start Date End Date Emelia Gonzalez MD [address] [place] [address] PCP - General Hematology/Oncology 02/02/24 Cleo Feliz, GRAB DRIVER.ELECTRICAL CONSTRUCTION PROJECT MANAGER [address] [facility] [place] [address] Nurse Practitioner Hematology/Oncology 06/05/23 Michael Boykin MD [address] [facility] [place] [address] Physician Hematology/Oncology 06/05/23 Ivania Jackman, RN [address] [facility] [place] [address] Specialty Felt Finisher Hematology/Oncology 06/05/23 Technical Information Specialist Relationship Specialty Start Date End Date Emelia Gonzalez MD [address] [place] [address] PCP - General Hematology/Oncology 02/02/24 Cleo Feliz, GRAB DRIVER.ELECTRICAL CONSTRUCTION PROJECT MANAGER [address] [facility] [place] [address] Nurse Practitioner Hematology/Oncology 06/05/23 Michael Boykin MD [address] [facility] [place] [address] Physician Hematology/Oncology 06/05/23 Ivania Jackman, STEVE [address] [facility] [place] [address] Specialty Felt Finisher Hematology/Oncology 06/05/23 Technical Information Specialist Relationship Specialty Start Date End Date Emelia Gonzalez MD [address] [place] [address] PCP - General Hematology/Oncology 02/02/24 Cleo Feliz, GRAB DRIVER.ELECTRICAL CONSTRUCTION PROJECT MANAGER [address] [facility] [place] [address] Nurse Practitioner Hematology/Oncology 06/05/23 Michael Boykin MD [address] [facility] [place] [address] Physician Hematology/Oncology 06/05/23 Ivania Jackman RN [address] [facility] [place] [address] Specialty Felt Finisher Hematology/Oncology 06/05/23 Technical Information Specialist Relationship Specialty Start Date End Date Emelia Gonzalez MD [address] [place] [address] PCP - General Hematology/Oncology 02/02/24 Cleo Feliz, GRAB DRIVER.ELECTRICAL CONSTRUCTION PROJECT MANAGER [address] [facility] [place] [address] Nurse Practitioner Hematology/Oncology 06/05/23 Michael Boykin MD [address] [facility] [place] [address] Physician Hematology/Oncology 06/05/23 Ivania Jackman RN [address] [facility] [place] [address] Specialty Felt Finisher Hematology/Oncology 06/05/23 Technical Information Specialist Relationship Specialty Start Date End Date Cleo Feliz, GRAB DRIVER.ELECTRICAL CONSTRUCTION PROJECT MANAGER [address] [facility] [place] [address] Nurse Practitioner Hematology/Oncology 06/05/23 Michael Boykin MD [address] [facility] [place] [address] Physician Hematology/Oncology 06/05/23 Ivania Jackman, STEVE [address] [facility] [place] [address] Specialty Felt Finisher Hematology/Oncology 06/05/23 Krystyna Hernandez, CORRECTION OFFICER REFORMATORY [address] [facility] [place] [id number] Blood and Marrow Transplant 02/23/24 Technical Information Specialist Relationship Specialty Start Date End Date Cleo Feliz, GRAB DRIVER.ELECTRICAL CONSTRUCTION PROJECT MANAGER [address] [facility] [place] [address] Nurse Practitioner Hematology/Oncology 06/05/23 Michael Boykin MD [address] [facility] [place] [address] Physician Hematology/Oncology 06/05/23 Ivania Jackman, STEVE [address] [facility] [place] [address] Specialty Felt Finisher Hematology/Oncology 06/05/23 Krystyna Hernandez LISW [address] [place] [address] Blood and Marrow Transplant 02/23/24 Technical Information Specialist Relationship Specialty Start Date End Date Cleo Feliz, GRAB DRIVER.ELECTRICAL CONSTRUCTION PROJECT MANAGER [address] [facility] [place] [address] Nurse Practitioner Hematology/Oncology 06/05/23 Michael Boykin MD [address] [facility] [place] [address] Physician Hematology/Oncology 06/05/23 Ivania Jackman, STEVE [address] [facility] [place] [address] Specialty Felt Finisher Hematology/Oncology 06/05/23 Krystyna Hernandze LISW [address] [place] [address] Blood and Marrow Transplant 02/23/24 Technical Information Specialist Relationship Specialty Start Date End Date Cleo Feliz, GRAB DRIVER.ELECTRICAL CONSTRUCTION PROJECT MANAGER [address] [facility] [address] [place], [place] [id number] Nurse Practitioner Hematology/Oncology 06/05/23 Michael Boykin MD [address] [facility] [place] [address] Physician Hematology/Oncology 06/05/23 Ivania Jackman, STEVE [address] [facility] [place] [address] Specialty Felt Finisher Hematology/Oncology 06/05/23 Krystyna Hernandez LISW [address] [place] [address] Blood and Marrow Transplant 02/23/24 Technical Information Specialist Relationship Specialty Start Date End Date Cleo Feliz, GRAB DRIVER.ELECTRICAL CONSTRUCTION PROJECT MANAGER [address] [facility] [place] [address] Nurse Practitioner Hematology/Oncology 06/05/23 Michael Boykin MD [address] [place] [address] [place] [address] Physician Hematology/Oncology 06/05/23 Ivania Jackman, STEVE [address] [facility] [place] [address] Specialty Felt Finisher Hematology/Oncology 06/05/23 Krystyna Hernandez LISW [address] [place] [address] Blood and Marrow Transplant 02/23/24 Technical Information Specialist Relationship Specialty Start Date End Date Cleo Feliz, GRAB DRIVER.ELECTRICAL CONSTRUCTION PROJECT MANAGER [address] [facility] [place] [address] Nurse Practitioner Hematology/Oncology 06/05/23 Michael Boykin MD [address] [facility] [place] [address] Physician Hematology/Oncology 06/05/23 Ivania Jackman, STEVE [address] [facility] [place] [address] Specialty Felt Finisher Hematology/Oncology 06/05/23 Krystyna Hernandez, [facility] [address] [place] [address] Blood and Marrow Transplant 02/23/24 Technical Information Specialist Relationship Specialty Start Date End Date Cleo Feliz, GRAB DRIVER.ELECTRICAL CONSTRUCTION PROJECT MANAGER [address] [facility] [place] [address] Nurse Practitioner Hematology/Oncology 06/05/23 Michael Boykin MD [address] [place] [address] [place] [address] Physician Hematology/Oncology 06/05/23 Ivania Jackman RN [address] [facility] [place] [address] Specialty Felt Finisher Hematology/Oncology 06/05/23 Krystyna Hernandez, [facility] [address] [place] [address] Blood and Marrow Transplant 02/23/24 Technical Information Specialist Relationship Specialty Start Date End Date Cleo Feliz, GRAB DRIVER.ELECTRICAL CONSTRUCTION PROJECT MANAGER [address] [facility] [place] [address] Nurse Practitioner Hematology/Oncology 06/05/23 Michael Boykin MD [address] [facility] [place] [address] Physician Hematology/Oncology 06/05/23 Ivania Jackman, RN [address] [facility] [place] [address] Specialty Felt Finisher Hematology/Oncology 06/05/23 Krystyna Hernandez LISW [address] [place] [address] Blood and Marrow Transplant 02/23/24 Technical Information Specialist Relationship Specialty Start Date End Date Cleo Feliz, GRAB DRIVER.ELECTRICAL CONSTRUCTION PROJECT MANAGER [address] [facility] [place] [address] Nurse Practitioner Hematology/Oncology 06/05/23 Michael Boykin MD [address] [place] [address] [place] [address] Physician Hematology/Oncology 06/05/23 Ivania Jackman RN [address] [facility] [place] [address] Specialty Felt Finisher Hematology/Oncology 06/05/23 Krystyna Hernandez LISW [address] [place] [address] Blood and Marrow Transplant 02/23/24 Technical Information Specialist Relationship Specialty Start Date End Date Cleo Feliz, GRAB DRIVER.ELECTRICAL CONSTRUCTION PROJECT MANAGER [address] [facility] [place] [address] Nurse Practitioner Hematology/Oncology 06/05/23 Michael Boykin MD [address] [facility] [place] [address] Physician Hematology/Oncology 06/05/23 Ivania Jackman, STEVE [address] [facility] [place] [address] Specialty Felt Finisher Hematology/Oncology 06/05/23 Krystyna Hernandez LISW [address] [place] [address] Blood and Marrow Transplant 02/23/24 Technical Information Specialist Relationship Specialty Start Date End Date Cleo Feliz, GRAB DRIVER.ELECTRICAL CONSTRUCTION PROJECT MANAGER [address] [facility] [place] [address] Nurse Practitioner Hematology/Oncology 06/05/23 Michael Boykin MD [address] [place] [address] [place] [address] Physician Hematology/Oncology 06/05/23 Ivania Jackman, RN [address] [facility] [place] [address] Specialty Felt Finisher Hematology/Oncology 06/05/23 Krystyna Hernandez LISW [address] [place] [address] Blood and Marrow Transplant 02/23/24 Technical Information Specialist Relationship Specialty Start Date End Date Cleo Feliz, GRAB DRIVER.ELECTRICAL CONSTRUCTION PROJECT MANAGER [address] [facility] [place] [address] Nurse Practitioner Hematology/Oncology 06/05/23 Michael Boykin MD [address] [facility] [place] [address] Physician Hematology/Oncology 06/05/23 Ivania Jackman, STEVE [address] [facility] [place] [address] Specialty Felt Finisher Hematology/Oncology 06/05/23 Krystyna Hernandez LISW [address] [place] [address] Blood and Marrow Transplant 02/23/24 Technical Information Specialist Relationship Specialty Start Date End Date Cleo Feliz, GRAB DRIVER.ELECTRICAL CONSTRUCTION PROJECT MANAGER [address] [facility] [place] [address] Nurse Practitioner Hematology/Oncology 06/05/23 Michael Boykin MD [address] [facility] [place] [address] Physician Hematology/Oncology 06/05/23 Ivania Jackman, STEVE [address] [facility] [place] [address] Specialty Felt Finisher Hematology/Oncology 06/05/23 Krystyna Hernandez LISW [address] [place] [address] Blood and Marrow Transplant 02/23/24 Technical Information Specialist Relationship Specialty Start Date End Date Cloe Feliz, GRAB DRIVER.ELECTRICAL CONSTRUCTION PROJECT MANAGER [address] [facility] [place] [address] Nurse Practitioner Hematology/Oncology 06/05/23 Michael Boykin MD [address] [facility] [place] [address] Physician Hematology/Oncology 06/05/23 Ivania Jackman, STEVE [address] [facility] [place] [address] Specialty Felt Finisher Hematology/Oncology 06/05/23 Krystyna Hernandez LISW [address] [place] [address] Blood and Marrow Transplant 02/23/24 Martina Marshall RN [address] [address] Specialty Felt Finisher Blood and Marrow Transplant 04/06/24 07/05/24 [place] [address] [place] [address] Physician Blood and Marrow Transplant 04/06/24 Technical Information Specialist Relationship Specialty Start Date End Date Cleo Feliz, GRAB DRIVER.ELECTRICAL CONSTRUCTION PROJECT MANAGER [address] [facility] [place] [address] Nurse Practitioner Hematology/Oncology 06/05/23 Michael Boykin MD [address] [facility] [place] [address] Physician Hematology/Oncology 06/05/23 Ivania Jackman, STEVE [address] [facility] [place] [place] [address] Specialty Felt Finisher Hematology/Oncology 06/05/23 Krystyna Hernandez LISW [address] [place] [address] Blood and Marrow Transplant 02/23/24 Martina Marshall RN [address] [address] Specialty Felt Finisher Blood and Marrow Transplant 04/06/24 07/05/24 [place] [address] [place] [address] Physician Blood and Marrow Transplant 04/06/24 Technical Information Specialist Relationship Specialty Start Date End Date Cleo Feliz, GRAB DRIVER.ELECTRICAL CONSTRUCTION PROJECT MANAGER [address] [facility] [place] [address] Nurse Practitioner Hematology/Oncology 06/05/23 Michael Boykin MD [address] [facility] [place] [address] Physician Hematology/Oncology 06/05/23 Ivania JackmanSTEVE [address] [facility] [place] [address] Specialty Felt Finisher Hematology/Oncology 06/05/23 Krystyna Hernandez LISW [address] [place] [address] Blood and Marrow Transplant 02/23/24 Martina Marshall RN [address] [address] Specialty Felt Finisher Blood and Marrow Transplant 04/06/24 07/05/24 [place] [address] [place] [address] Physician Blood and Marrow Transplant 04/06/24 Technical Information Specialist Relationship Specialty Start Date End Date Cleo Feliz, GRAB DRIVER.ELECTRICAL CONSTRUCTION PROJECT MANAGER [address] [facility] [place] [address] Nurse Practitioner Hematology/Oncology 06/05/23 Michael Boykin MD [address] [facility] [place] [place] [address] Physician Hematology/Oncology 06/05/23 Ivania Jackman, STEVE [address] [facility] [place] [address] Specialty Felt Finisher Hematology/Oncology 06/05/23 Krystyna Hernandez LISW [address] [place] [address] Blood and Marrow Transplant 02/23/24 Martina Marshall RN [address] [address] Specialty Felt Finisher Blood and Marrow Transplant 04/06/24 07/05/24 [place] [address] [place] [address] Physician Blood and Marrow Transplant 04/06/24 Technical Information Specialist Relationship Specialty Start Date End Date Cleo Feliz, GRAB DRIVER.ELECTRICAL CONSTRUCTION PROJECT MANAGER [address] [facility] [place] [address] Nurse Practitioner Hematology/Oncology 06/05/23 Michael Boykin MD [address] [facility] [place] [address] Physician Hematology/Oncology 06/05/23 Ivania Jackman, RN [address] [facility] [place] [address] Specialty Felt Finisher Hematology/Oncology 06/05/23 Krystyna Hernandez LISW [address] [place] [id number] Blood and Marrow Transplant 02/23/24 Martina Marshall RN [address] [address] Specialty Felt Finisher Blood and Marrow Transplant 04/06/24 07/05/24 [place] [address] [place] [address] Physician Blood and Marrow Transplant 04/06/24 Technical Information Specialist Relationship Specialty Start Date End Date Cleo Feliz, GRAB DRIVER.ELECTRICAL CONSTRUCTION PROJECT MANAGER [address] [facility] [place] [address] Nurse Practitioner Hematology/Oncology 06/05/23 Michael Boykin MD [address] [facility] [place] [address] Physician Hematology/Oncology 06/05/23 Ivania Jackman, RN [address] [facility] [place] [address] Specialty Felt Finisher Hematology/Oncology 06/05/23 Krystyna Hernandez LISW [address] [place] [address] Blood and Marrow Transplant 02/23/24 Martina Marshall RN [address] [address] Specialty Felt Finisher Blood and Marrow Transplant 04/06/24 07/05/24 [place] [address] [place] [id number] Physician Blood and Marrow Transplant 04/06/24 Technical Information Specialist Relationship Specialty Start Date End Date Cleo Feliz APRN.ELECTRICAL CONSTRUCTION PROJECT MANAGER [address] [place] [address] [place] [address] Nurse Practitioner Hematology/Oncology 06/05/23 Michael Boykin MD [address] [place] [address] [place] [address] Physician Hematology/Oncology 06/05/23 Ivania Jackman, STEVE [address] [facility] [place] [address] Specialty Felt Finisher Hematology/Oncology 06/05/23 Krystyna Hernandez LISW [address] [place] [address] Blood and Marrow Transplant 02/23/24 Martina Marshall RN [address] [address] Specialty Felt Finisher Blood and Marrow Transplant 04/06/24 07/05/24 [place] [address] [place] [address] Physician Blood and Marrow Transplant 04/06/24 Technical Information Specialist Relationship Specialty Start Date End Date Cleo Feliz, GRAB DRIVER.ELECTRICAL CONSTRUCTION PROJECT MANAGER [address] [place] [address] [place] [address] Nurse Practitioner Hematology/Oncology 06/05/23 Michael Boykin MD [address] [place] [address] [place] [address] Physician Hematology/Oncology 06/05/23 Ivania Jackman, STEVE [address] [facility] [place] [address] Specialty Felt Finisher Hematology/Oncology 06/05/23 Krystyna Hernandez LISW [address] [place] [address] Blood and Marrow Transplant 02/23/24 Martina Marshall RN [address] [address] Specialty Felt Finisher Blood and Marrow Transplant 04/06/24 07/05/24 [place] [address] [place] [address] Physician Blood and Marrow Transplant 04/06/24 Technical Information Specialist Relationship Specialty Start Date End Date Cleo Feliz, GRAB DRIVER.ELECTRICAL CONSTRUCTION PROJECT MANAGER [address] [place] [address] [place] [address] Nurse Practitioner Hematology/Oncology 06/05/23 Michael Boykin MD [address] [place] [address] [place] [address] Physician Hematology/Oncology 06/05/23 Ivania Jackman, STEVE [address] [place] [address] [place] [address] Specialty Felt Finisher Hematology/Oncology 06/05/23 Krystyna Hernandez LISW [address] [place] [address] Blood and Marrow Transplant 02/23/24 Martina Marshall RN [address] [address] Specialty Felt Finisher Blood and Marrow Transplant 04/06/24 07/05/24 [place] [address] [place] [address] Physician Blood and Marrow Transplant 04/06/24 Technical Information Specialist Relationship Specialty Start Date End Date Cleo Feliz, GRAB DRIVER.ELECTRICAL CONSTRUCTION PROJECT MANAGER [address] [facility] [place] [address] Nurse Practitioner Hematology/Oncology 06/05/23 Michael Boykin MD [address] [facility] [place] [address] Physician Hematology/Oncology 06/05/23 Ivania Jackman, STEVE [address] [facility] [place] [place] [address] Specialty Felt Finisher Hematology/Oncology 06/05/23 Krystyna Hernandez LISW-S [address]81 [place] [address] Blood and Marrow Transplant 02/23/24 Martina Marshall RN [address] [address] Specialty Felt Finisher Blood and Marrow Transplant 04/06/24 07/05/24 [place] [address] [place] [address] Physician Blood and Marrow Transplant 04/06/24 Technical Information Specialist Relationship Specialty Start Date End Date Cleo Feliz, GRAB DRIVER.ELECTRICAL CONSTRUCTION PROJECT MANAGER [address] [facility] [place] [address] Nurse Practitioner Hematology/Oncology 06/05/23 Michael Boykin MD [address] [place] [address] [place] [address] Physician Hematology/Oncology 06/05/23 Ivania Jackman, STEVE [address] [facility] [place] [address] Specialty Felt Finisher Hematology/Oncology 06/05/23 Krystyna Hernandez LISW-S [address]64[address] [place] [address] Blood and Marrow Transplant 02/23/24 Martina Marshall RN [address] [address] Specialty Felt Finisher Blood and Marrow Transplant 04/06/24 07/05/24 [place] [address] [place] [address] Physician Blood and Marrow Transplant 04/06/24 Technical Information Specialist Relationship Specialty Start Date End Date Cleo Feliz, GRAB DRIVER.ELECTRICAL CONSTRUCTION PROJECT MANAGER [address] [place] [address] [place] [address] Nurse Practitioner Hematology/Oncology 06/05/23 Michael Boykin MD [address] [place] [address] [place] [address] Physician Hematology/Oncology 06/05/23 Ivania Jackman, STEVE [address] [facility] [place] [address] Specialty Felt Finisher Hematology/Oncology 06/05/23 Krystyna Hernandez LISW-S 22836 [place] [address] Blood and Marrow Transplant 02/23/24 Martina Marshall RN [address] [address] Specialty Felt Finisher Blood and Marrow Transplant 04/06/24 06/18/24 [place] [address] [place] [address] Physician Blood and Marrow Transplant 04/06/24 Technical Information Specialist Relationship Specialty Start Date End Date Cleo Feliz, GRAB DRIVER.ELECTRICAL CONSTRUCTION PROJECT MANAGER [address] [facility] [place] [address] Nurse Practitioner Hematology/Oncology 06/05/23 Michael Boykin MD [address] [facility] [place] [address] Physician Hematology/Oncology 06/05/23 Ivania Jackman, RN [address] [facility] [place] [address] Specialty Felt Finisher Hematology/Oncology 06/05/23 Krystyna Hernandez LISW-S 28864 [place] [address] Blood and Marrow Transplant 02/23/24 Martina Marshall RN [address] [address] Specialty Felt Finisher Blood and Marrow Transplant 04/06/24 06/18/24 [place] [address] [place] [address] Physician Blood and Marrow Transplant 04/06/24 Technical Information Specialist Relationship Specialty Start Date End Date Cleo Feliz, GRAB DRIVER.ELECTRICAL CONSTRUCTION PROJECT MANAGER [address] [facility] [place] [address] Nurse Practitioner Hematology/Oncology 06/05/23 Michael Boykin MD [address] [facility] [place] [address] Physician Hematology/Oncology 06/05/23 Ivania Jackman, STEVE [address] [facility] [place] [address] Specialty Felt Finisher Hematology/Oncology 06/05/23 [place] [address] [place] [address] Physician Blood and Marrow Transplant 04/06/24 Giana Newton LISW [address] [place] [address] Synthetic Soil Blocks Pulper 06/21/24 09/02/24 Technical Information Specialist Relationship Specialty Start Date End Date Cleo Feliz, GRAB DRIVER.ELECTRICAL CONSTRUCTION PROJECT MANAGER [address] [facility] [place] [address] Nurse Practitioner Hematology/Oncology 06/05/23 Michael Boykin MD [address] [facility] [place] [address] Physician Hematology/Oncology 06/05/23 Ivania Jackman RN [address] [facility] [place] [address] Specialty Felt Finisher Hematology/Oncology 06/05/23 Krystyna Hernandez LISW-Shanta [address] [place] [address] Blood and Marrow Transplant 02/23/24 06/20/24 Martina Marshall RN [address] [address] Specialty Felt Finisher Blood and Marrow Transplant 04/06/24 06/18/24 [place] [address] [place] [address] Physician Blood and Marrow Transplant 04/06/24 Technical Information Specialist Relationship Specialty Start Date End Date Cleo Feliz, GRAB DRIVER.ELECTRICAL CONSTRUCTION PROJECT MANAGER [address] [facility] [place] [address] Nurse Practitioner Hematology/Oncology 06/05/23 Michael Boykin MD [address] [place] [address] [place] [address] Physician Hematology/Oncology 06/05/23 Ivania Jackman, STEVE [address] [facility] [place] [address] Specialty Felt Finisher Hematology/Oncology 06/05/23 Krystyna Hernandez LISW-S 67672 [place] [address] Blood and Marrow Transplant 02/23/24 06/20/24 Technical Information Specialist Relationship Specialty Start Date End Date Cleo Feliz, GRAB DRIVER.ELECTRICAL CONSTRUCTION PROJECT MANAGER [address] [place] [address] [place] [address] Nurse Practitioner Hematology/Oncology 06/05/23 Michael Boykin MD [address] [place] [address] [place] [address] Physician Hematology/Oncology 06/05/23 Ivania Jackman, STEVE [address] [facility] [place] [address] Specialty Felt Finisher Hematology/Oncology 06/05/23 Krystyna Hernandez LISW-S [address]343 [place] [address] Blood and Marrow Transplant 02/23/24 06/20/24 Technical Information Specialist Relationship Specialty Start Date End Date Cleo Feliz, GRAB DRIVER.ELECTRICAL CONSTRUCTION PROJECT MANAGER [address] [facility] [place] [address] Nurse Practitioner Hematology/Oncology 06/05/23 Michael Boykin MD [address] [facility] [place] [address] Physician Hematology/Oncology 06/05/23 Ivania Jackman, RN [address] [facility] [place] [address] Specialty Felt Finisher Hematology/Oncology 06/05/23 Technical Information Specialist Relationship Specialty Start Date End Date Cleo Feliz, GRAB DRIVER.ELECTRICAL CONSTRUCTION PROJECT MANAGER [address] [facility] [place] [address] Nurse Practitioner Hematology/Oncology 06/05/23 Michael Boykin MD [address] [facility] [place] [address] Physician Hematology/Oncology 06/05/23 Ivania Jackman, STEVE [address] [facility] [place] [address] Specialty Felt Finisher Hematology/Oncology 06/05/23 Technical Information Specialist Relationship Specialty Start Date End Date Cleo Feliz, GRAB DRIVER.ELECTRICAL CONSTRUCTION PROJECT MANAGER [address] [facility] [place] [address] Nurse Practitioner Hematology/Oncology 06/05/23 Michael Boykin MD [address] [facility] [place] [address] Physician Hematology/Oncology 06/05/23 Ivania Jackman, RN [address] [facility] [place] [address] Specialty Felt Finisher Hematology/Oncology 06/05/23 Technical Information Specialist Relationship Specialty Start Date End Date Cleo Feliz, GRAB DRIVER.ELECTRICAL CONSTRUCTION PROJECT MANAGER [address] [facility] [place] [address] Nurse Practitioner Hematology/Oncology 06/05/23 Michael Boykin MD [address] [facility] [place] [address] Physician Hematology/Oncology 06/05/23 Ivania Jackman, STEVE [address] [facility] [place] [address] Specialty Felt Finisher Hematology/Oncology 06/05/23 [place] [address] [place] [id number] Physician Blood and Marrow Transplant 04/06/24 Giana Newton LISW [address] [place] [id number] Synthetic Soil Blocks Pulper 06/21/24 09/02/24 Source Comments (unrecognize d section and content) In the event this informatio n is protected by the [facility] Confidentiality of Alcohol and Drug Abuse Patient Records regulations: The Federal rules restrict any use of the information to criminally investigate or prosecute any alcohol or drug abuse patient.[facility] the event this information is protected by the Federal Confidentiality of Alcohol and Drug Abuse Patient Records regulations: The Federal rules restrict any use of the information to criminally investigate or prosecute any alcohol or drug abuse patient.[facility] the event this information is protected by the Federal Confidentiality of Alcohol and Drug Abuse Patient Records regulations: The Federal rules restrict any use of the information to criminally investigate or prosecute any alcohol or drug abuse patient.[facility] the event this information is protected by the Federal Confidentiality of Alcohol and Drug Abuse Patient Records regulations: The Federal rules restrict any use of the information to criminally investigate or prosecute any alcohol or drug abuse patient.[facility] Hospital[facility] the event this information is protected by the Federal Confidentiality of Alcohol and Drug Abuse Patient Records regulations: The Federal rules restrict any use of the information to criminally investigate or prosecute any alcohol or drug abuse patient.[facility] Hospital[facility] the event this information is protected by the Federal Confidentiality of Alcohol and Drug Abuse Patient Records regulations: The Federal rules restrict any use of the information to criminally investigate or prosecute any alcohol or drug abuse patient.[facility] Hospital[facility] the event this information is protected by the Federal Confidentiality of Alcohol and Drug Abuse Patient Records regulations: The Federal rules restrict any use of the information to criminally investigate or prosecute any alcohol or drug abuse patient.[facility] Hospital[facility] the event this information is protected by the Federal Confidentiality of Alcohol and Drug Abuse Patient Records regulations: The Federal rules restrict any use of the information to criminally investigate or prosecute any alcohol or drug abuse patient.[facility] Hospital[facility] the event this information is protected by the Federal Confidentiality of Alcohol and Drug Abuse Patient Records regulations: The Federal rules restrict any use of the information to criminally investigate or prosecute any alcohol or drug abuse patient.[facility] Hospital[facility] the event this information is protected by the Federal Confidentiality of Alcohol and Drug Abuse Patient Records regulations: The Federal rules restrict any use of the information to criminally investigate or prosecute any alcohol or drug abuse patient.[facility]In the event this information is protected by the Federal Confidentiality of Alcohol and Drug Abuse Patient Records regulations: The Federal rules restrict any use of the information to criminally investigate or prosecute any alcohol or drug abuse patient.[facility] HospitalIn the event this information is protected by the Federal Confidentiality of Alcohol and Drug Abuse Patient Records regulations: The Federal rules restrict any use of the information to criminally investigate or prosecute any alcohol or drug abuse patient.[facility] HospitalIn the event this information is protected by the Federal Confidentiality of Alcohol and Drug Abuse Patient Records regulations: The Federal rules restrict any use of the information to criminally investigate or prosecute any alcohol or drug abuse patient.[facility] HospitalIn the event this information is protected by the Federal Confidentiality of Alcohol and Drug Abuse Patient Records regulations: The Federal rules restrict any use of the information to criminally investigate or prosecute any alcohol or drug abuse patient.[facility] HospitalIn the event this information is protected by the Federal Confidentiality of Alcohol and Drug Abuse Patient Records regulations: The Federal rules restrict any use of the information to criminally investigate or prosecute any alcohol or drug abuse patient.[facility] HospitalIn the event this information is protected by the Federal Confidentiality of Alcohol and Drug Abuse Patient Records regulations: The Federal rules restrict any use of the information to criminally investigate or prosecute any alcohol or drug abuse patient.[facility] HospitalIn the event this information is protected by the Federal Confidentiality of Alcohol and Drug Abuse Patient Records regulations: The Federal rules restrict any use of the information to criminally investigate or prosecute any alcohol or drug abuse patient.[facility] HospitalIn the event this information is protected by the Federal Confidentiality of Alcohol and Drug Abuse Patient Records regulations: The Federal rules restrict any use of the information to criminally investigate or prosecute any alcohol or drug abuse patient.[facility] HospitalIn the event this information is protected by the Federal Confidentiality of Alcohol and Drug Abuse Patient Records regulations: The Federal rules restrict any use of the information to criminally investigate or prosecute any alcohol or drug abuse patient.[facility] HospitalIn the event this information is protected by the Federal Confidentiality of Alcohol and Drug Abuse Patient Records regulations: The Federal rules restrict any use of the information to criminally investigate or prosecute any alcohol or drug abuse patient.[facility] HospitalIn the event this information is protected by the Federal Confidentiality of Alcohol and Drug Abuse Patient Records regulations: The Federal rules restrict any use of the information to criminally investigate or prosecute any alcohol or drug abuse patient.[facility] HospitalIn the event this information is protected by the Federal Confidentiality of Alcohol and Drug Abuse Patient Records regulations: The Federal rules restrict any use of the information to criminally investigate or prosecute any alcohol or drug abuse patient.[facility] HospitalIn the event this information is protected by the Federal Confidentiality of Alcohol and Drug Abuse Patient Records regulations: The Federal rules restrict any use of the information to criminally investigate or prosecute any alcohol or drug abuse patient.[facility] HospitalIn the event this information is protected by the Federal Confidentiality of Alcohol and Drug Abuse Patient Records regulations: The Federal rules restrict any use of the information to criminally investigate or prosecute any alcohol or drug abuse patient.[facility] HospitalIn the event this information is protected by the Federal Confidentiality of Alcohol and Drug Abuse Patient Records regulations: The Federal rules restrict any use of the information to criminally investigate or prosecute any alcohol or drug abuse patient.[facility] HospitalIn the event this information is protected by the Federal Confidentiality of Alcohol and Drug Abuse Patient Records regulations: The Federal rules restrict any use of the information to criminally investigate or prosecute any alcohol or drug abuse patient.[facility] HospitalIn the event this information is protected by the Federal Confidentiality of Alcohol and Drug Abuse Patient Records regulations: The Federal rules restrict any use of the information to criminally investigate or prosecute any alcohol or drug abuse patient.[facility] HospitalIn the event this information is protected by the Federal Confidentiality of Alcohol and Drug Abuse Patient Records regulations: The Federal rules restrict any use of the information to criminally investigate or prosecute any alcohol or drug abuse patient.[facility] HospitalIn the event this information is protected by the Federal Confidentiality of Alcohol and Drug Abuse Patient Records regulations: The Federal rules restrict any use of the information to criminally investigate or prosecute any alcohol or drug abuse patient.[facility] HospitalIn the event this information is protected by the Federal Confidentiality of Alcohol and Drug Abuse Patient Records regulations: The Federal rules restrict any use of the information to criminally investigate or prosecute any alcohol or drug abuse patient.[facility] HospitalIn the event this information is protected by the Federal Confidentiality of Alcohol and Drug Abuse Patient Records regulations: The Federal rules restrict any use of the information to criminally investigate or prosecute any alcohol or drug abuse patient.[facility] HospitalIn the event this information is protected by the Federal Confidentiality of Alcohol and Drug Abuse Patient Records regulations: The Federal rules restrict any use of the information to criminally investigate or prosecute any alcohol or drug abuse patient.[facility] HospitalIn the event this information is protected by the Federal Confidentiality of Alcohol and Drug Abuse Patient Records regulations: The Federal rules restrict any use of the information to criminally investigate or prosecute any alcohol or drug abuse patient.[facility] HospitalIn the event this information is protected by the Federal Confidentiality of Alcohol and Drug Abuse Patient Records regulations: The Federal rules restrict any use of the information to criminally investigate or prosecute any alcohol or drug abuse patient.[facility] HospitalIn the event this information is protected by the Federal Confidentiality of Alcohol and Drug Abuse Patient Records regulations: The Federal rules restrict any use of the information to criminally investigate or prosecute any alcohol or drug abuse patient.[facility] HospitalIn the event this information is protected by the Federal Confidentiality of Alcohol and Drug Abuse Patient Records regulations: The Federal rules restrict any use of the information to criminally investigate or prosecute any alcohol or drug abuse patient.[facility] HospitalIn the event this information is protected by the Federal Confidentiality of Alcohol and Drug Abuse Patient Records regulations: The Federal rules restrict any use of the information to criminally investigate or prosecute any alcohol or drug abuse patient.[facility] HospitalIn the event this information is protected by the Federal Confidentiality of Alcohol and Drug Abuse Patient Records regulations: The Federal rules restrict any use of the information to criminally investigate or prosecute any alcohol or drug abuse patient.[facility] HospitalIn the event this information is protected by the Federal Confidentiality of Alcohol and Drug Abuse Patient Records regulations: The Federal rules restrict any use of the information to criminally investigate or prosecute any alcohol or drug abuse patient.[facility] HospitalIn the event this information is protected by the Federal Confidentiality of Alcohol and Drug Abuse Patient Records regulations: The Federal rules restrict any use of the information to criminally investigate or prosecute any alcohol or drug abuse patient.[facility] HospitalIn the event this information is protected by the Federal Confidentiality of Alcohol and Drug Abuse Patient Records regulations: The Federal rules restrict any use of the information to criminally investigate or prosecute any alcohol or drug abuse patient.[facility] HospitalIn the event this information is protected by the Federal Confidentiality of Alcohol and Drug Abuse Patient Records regulations: The Federal rules restrict any use of the information to criminally investigate or prosecute any alcohol or drug abuse patient.[facility] HospitalIn the event this information is protected by the Federal Confidentiality of Alcohol and Drug Abuse Patient Records regulations: The Federal rules restrict any use of the information to criminally investigate or prosecute any alcohol or drug abuse patient.[facility] HospitalIn the event this information is protected by the Federal Confidentiality of Alcohol and Drug Abuse Patient Records regulations: The Federal rules restrict any use of the information to criminally investigate or prosecute any alcohol or drug abuse patient.[facility] HospitalIn the event this information is protected by the Federal Confidentiality of Alcohol and Drug Abuse Patient Records regulations: The Federal rules restrict any use of the information to criminally investigate or prosecute any alcohol or drug abuse patient.[facility] HospitalIn the event this information is protected by the Federal Confidentiality of Alcohol and Drug Abuse Patient Records regulations: The Federal rules restrict any use of the information to criminally investigate or prosecute any alcohol or drug abuse patient.[facility] HospitalIn the event this information is protected by the Federal Confidentiality of Alcohol and Drug Abuse Patient Records regulations: The Federal rules restrict any use of the information to criminally investigate or prosecute any alcohol or drug abuse patient.[facility] HospitalIn the event this information is protected by the Federal Confidentiality of Alcohol and Drug Abuse Patient Records regulations: The Federal rules restrict any use of the information to criminally investigate or prosecute any alcohol or drug abuse patient.[facility] HospitalIn the event this information is protected by the Federal Confidentiality of Alcohol and Drug Abuse Patient Records regulations: The Federal rules restrict any use of the information to criminally investigate or prosecute any alcohol or drug abuse patient.[facility] HospitalIn the event this information is protected by the Federal Confidentiality of Alcohol and Drug Abuse Patient Records regulations: The Federal rules restrict any use of the information to criminally investigate or prosecute any alcohol or drug abuse patient.[facility] HospitalIn the event this information is protected by the Federal Confidentiality of Alcohol and Drug Abuse Patient Records regulations: The Federal rules restrict any use of the information to criminally investigate or prosecute any alcohol or drug abuse patient.[facility] HospitalIn the event this information is protected by the Federal Confidentiality of Alcohol and Drug Abuse Patient Records regulations: The Federal rules restrict any use of the information to criminally investigate or prosecute any alcohol or drug abuse patient.[facility] HospitalIn the event this information is protected by the Federal Confidentiality of Alcohol and Drug Abuse Patient Records regulations: The Federal rules restrict any use of the information to criminally investigate or prosecute any alcohol or drug abuse patient.[facility] HospitalIn the event this information is protected by the Federal Confidentiality of Alcohol and Drug Abuse Patient Records regulations: The Federal rules restrict any use of the information to criminally investigate or prosecute any alcohol or drug abuse patient.[facility] HospitalIn the event this information is protected by the Federal Confidentiality of Alcohol and Drug Abuse Patient Records regulations: The Federal rules restrict any use of the information to criminally investigate or prosecute any alcohol or drug abuse patient.[facility] HospitalIn the event this information is protected by the Federal Confidentiality of Alcohol and Drug Abuse Patient Records regulations: The Federal rules restrict any use of the information to criminally investigate or prosecute any alcohol or drug abuse patient.[facility] HospitalIn the event this information is protected by the Federal Confidentiality of Alcohol and Drug Abuse Patient Records regulations: The Federal rules restrict any use of the information to criminally investigate or prosecute any alcohol or drug abuse patient.[facility] HospitalIn the event this information is protected by the Federal Confidentiality of Alcohol and Drug Abuse Patient Records regulations: The Federal rules restrict any use of the information to criminally investigate or prosecute any alcohol or drug abuse patient.[facility] HospitalIn the event this information is protected by the Federal Confidentiality of Alcohol and Drug Abuse Patient Records regulations: The Federal rules restrict any use of the information to criminally investigate or prosecute any alcohol or drug abuse patient.[facility] HospitalIn the event this information is protected by the Federal Confidentiality of Alcohol and Drug Abuse Patient Records regulations: The Federal rules restrict any use of the information to criminally investigate or prosecute any alcohol or drug abuse patient.[facility] HospitalIn the event this information is protected by the Federal Confidentiality of Alcohol and Drug Abuse Patient Records regulations: The Federal rules restrict any use of the information to criminally investigate or prosecute any alcohol or drug abuse patient.[facility] HospitalIn the event this information is protected by the Federal Confidentiality of Alcohol and Drug Abuse Patient Records regulations: The Federal rules restrict any use of the information to criminally investigate or prosecute any alcohol or drug abuse patient.[facility] HospitalIn the event this information is protected by the Federal Confidentiality of Alcohol and Drug Abuse Patient Records regulations: The Federal rules restrict any use of the information to criminally investigate or prosecute any alcohol or drug abuse patient.[facility] HospitalIn the event this information is protected by the Federal Confidentiality of Alcohol and Drug Abuse Patient Records regulations: The Federal rules restrict any use of the information to criminally investigate or prosecute any alcohol or drug abuse patient.[facility] HospitalIn the event this information is protected by the Federal Confidentiality of Alcohol and Drug Abuse Patient Records regulations: The Federal rules restrict any use of the information to criminally investigate or prosecute any alcohol or drug abuse patient.[facility] HospitalIn the event this information is protected by the Federal Confidentiality of Alcohol and Drug Abuse Patient Records regulations: The Federal rules restrict any use of the information to criminally investigate or prosecute any alcohol or drug abuse patient.[facility] HospitalIn the event this information is protected by the Federal Confidentiality of Alcohol and Drug Abuse Patient Records regulations: The Federal rules restrict any use of the information to criminally investigate or prosecute any alcohol or drug abuse patient.[facility] HospitalIn the event this information is protected by the Federal Confidentiality of Alcohol and Drug Abuse Patient Records regulations: The Federal rules restrict any use of the information to criminally investigate or prosecute any alcohol or drug abuse patient.[facility] HospitalIn the event this information is protected by the Federal Confidentiality of Alcohol and Drug Abuse Patient Records regulations: The Federal rules restrict any use of the information to criminally investigate or prosecute any alcohol or drug abuse patient.[facility] HospitalIn the event this information is protected by the Federal Confidentiality of Alcohol and Drug Abuse Patient Records regulations: The Federal rules restrict any use of the information to criminally investigate or prosecute any alcohol or drug abuse patient.[facility] HospitalIn the event this information is protected by the Federal Confidentiality of Alcohol and Drug Abuse Patient Records regulations: The Federal rules restrict any use of the information to criminally investigate or prosecute any alcohol or drug abuse patient.[facility] HospitalIn the event this information is protected by the Federal Confidentiality of Alcohol and Drug Abuse Patient Records regulations: The Federal rules restrict any use of the information to criminally investigate or prosecute any alcohol or drug abuse patient.[facility] HospitalIn the event this information is protected by the Federal Confidentiality of Alcohol and Drug Abuse Patient Records regulations: The Federal rules restrict any use of the information to criminally investigate or prosecute any alcohol or drug abuse patient.[facility] HospitalIn the event this information is protected by the Federal Confidentiality of Alcohol and Drug Abuse Patient Records regulations: The Federal rules restrict any use of the information to criminally investigate or prosecute any alcohol or drug abuse patient.[facility] HospitalIn the event this information is protected by the Federal Confidentiality of Alcohol and Drug Abuse Patient Records regulations: The Federal rules restrict any use of the information to criminally investigate or prosecute any alcohol or drug abuse patient.[facility] HospitalIn the event this information is protected by the Federal Confidentiality of Alcohol and Drug Abuse Patient Records regulations: The Federal rules restrict any use of the information to criminally investigate or prosecute any alcohol or drug abuse patient.[facility] HospitalIn the event this information is protected by the Federal Confidentiality of Alcohol and Drug Abuse Patient Records regulations: The Federal rules restrict any use of the information to criminally investigate or prosecute any alcohol or drug abuse patient.[facility] HospitalIn the event this information is protected by the Federal Confidentiality of Alcohol and Drug Abuse Patient Records regulations: The Federal rules restrict any use of the information to criminally investigate or prosecute any alcohol or drug abuse patient.[facility] HospitalIn the event this information is protected by the Federal Confidentiality of Alcohol and Drug Abuse Patient Records regulations: The Federal rules restrict any use of the information to criminally investigate or prosecute any alcohol or drug abuse patient.[facility] HospitalIn the event this information is protected by the Federal Confidentiality of Alcohol and Drug Abuse Patient Records regulations: The Federal rules restrict any use of the information to criminally investigate or prosecute any alcohol or drug abuse patient.[facility] HospitalIn the event this information is protected by the Federal Confidentiality of Alcohol and Drug Abuse Patient Records regulations: The Federal rules restrict any use of the information to criminally investigate or prosecute any alcohol or drug abuse patient.[facility] HospitalIn the event this information is protected by the Federal Confidentiality of Alcohol and Drug Abuse Patient Records regulations: The Federal rules restrict any use of the information to criminally investigate or prosecute any alcohol or drug abuse patient.[facility] HospitalIn the event this information is protected by the Federal Confidentiality of Alcohol and Drug Abuse Patient Records regulations: The Federal rules restrict any use of the information to criminally investigate or prosecute any alcohol or drug abuse patient.[facility] HospitalIn the event this information is protected by the Federal Confidentiality of Alcohol and Drug Abuse Patient Records regulations: The Federal rules restrict any use of the information to criminally investigate or prosecute any alcohol or drug abuse patient.[facility] HospitalIn the event this information is protected by the Federal Confidentiality of Alcohol and Drug Abuse Patient Records regulations: The Federal rules restrict any use of the information to criminally investigate or prosecute any alcohol or drug abuse patient.[facility] HospitalIn the event this information is protected by the Federal Confidentiality of Alcohol and Drug Abuse Patient Records regulations: The Federal rules restrict any use of the information to criminally investigate or prosecute any alcohol or drug abuse patient.[facility] HospitalIn the event this information is protected by the Federal Confidentiality of Alcohol and Drug Abuse Patient Records regulations: The Federal rules restrict any use of the information to criminally investigate or prosecute any alcohol or drug abuse patient.[facility] HospitalIn the event this information is protected by the Federal Confidentiality of Alcohol and Drug Abuse Patient Records regulations: The Federal rules restrict any use of the information to criminally investigate or prosecute any alcohol or drug abuse patient.[facility] HospitalIn the event this information is protected by the Federal Confidentiality of Alcohol and Drug Abuse Patient Records regulations: The Federal rules restrict any use of the information to criminally investigate or prosecute any alcohol or drug abuse patient.[facility] HospitalIn the event this information is protected by the Federal Confidentiality of Alcohol and Drug Abuse Patient Records regulations: The Federal rules restrict any use of the information to criminally investigate or prosecute any alcohol or drug abuse patient.[facility] HospitalIn the event this information is protected by the Federal Confidentiality of Alcohol and Drug Abuse Patient Records regulations: The Federal rules restrict any use of the information to criminally investigate or prosecute any alcohol or drug abuse patient.[facility] HospitalIn the event this information is protected by the Federal Confidentiality of Alcohol and Drug Abuse Patient Records regulations: The Federal rules restrict any use of the information to criminally investigate or prosecute any alcohol or drug abuse patient.[facility] HospitalIn the event this information is protected by the Federal Confidentiality of Alcohol and Drug Abuse Patient Records regulations: The Federal rules restrict any use of the information to criminally investigate or prosecute any alcohol or drug abuse patient.[facility] HospitalIn the event this information is protected by the Federal Confidentiality of Alcohol and Drug Abuse Patient Records regulations: The Federal rules restrict any use of the information to criminally investigate or prosecute any alcohol or drug abuse patient.[facility] HospitalIn the event this information is protected by the Federal Confidentiality of Alcohol and Drug Abuse Patient Records regulations: The Federal rules restrict any use of the information to criminally investigate or prosecute any alcohol or drug abuse patient.[facility] HospitalIn the event this information is protected by the Federal Confidentiality of Alcohol and Drug Abuse Patient Records regulations: The Federal rules restrict any use of the information to criminally investigate or prosecute any alcohol or drug abuse patient.[facility] HospitalIn the event this information is protected by the Federal Confidentiality of Alcohol and Drug Abuse Patient Records regulations: The Federal rules restrict any use of the information to criminally investigate or prosecute any alcohol or drug abuse patient.[facility] HospitalIn the event this information is protected by the Federal Confidentiality of Alcohol and Drug Abuse Patient Records regulations: The Federal rules restrict any use of the information to criminally investigate or prosecute any alcohol or drug abuse patient.[facility] HospitalIn the event this information is protected by the Federal Confidentiality of Alcohol and Drug Abuse Patient Records regulations: The Federal rules restrict any use of the information to criminally investigate or prosecute any alcohol or drug abuse patient.[facility] HospitalIn the event this information is protected by the Federal Confidentiality of Alcohol and Drug Abuse Patient Records regulations: The Federal rules restrict any use of the information to criminally investigate or prosecute any alcohol or drug abuse patient.[facility] HospitalIn the event this information is protected by the Federal Confidentiality of Alcohol and Drug Abuse Patient Records regulations: The Federal rules restrict any use of the information to criminally investigate or prosecute any alcohol or drug abuse patient.[facility] HospitalIn the event this information is protected by the Federal Confidentiality of Alcohol and Drug Abuse Patient Records regulations: The Federal rules restrict any use of the information to criminally investigate or prosecute any alcohol or drug abuse patient.[facility] HospitalIn the event this information is protected by the Federal Confidentiality of Alcohol and Drug Abuse Patient Records regulations: The Federal rules restrict any use of the information to criminally investigate or prosecute any alcohol or drug abuse patient.[facility] HospitalIn the event this information is protected by the Federal Confidentiality of Alcohol and Drug Abuse Patient Records regulations: The Federal rules restrict any use of the information to criminally investigate or prosecute any alcohol or drug abuse patient.[facility] Reason for Visit (unrecogniz ed section and content) Reason Comments Lymphoma New patient consulta tion Reason Comments 2nd opinion path Reason Comments Care Coordination Pathology Update Reason Comments Lymphoma Reason Comments Consult Specialty Diagnoses / Procedures Referred By Contac Referred To Contact Diagnoses Diffuse large B-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) Procedures CONSULT TO HEMATOLOGY/ONCOLOGY OFFICE/OUTPATIENT [facility] HIGH MDM 60-74 MINUTES Michael Boykin MD [address] [place] [address] [place] [address] Referral ID Status Reason Start Date Expiration Date V isits Requested Visits Authorized [id number] Closed PCP Requested Referral 05/22/2023 05/21/2024 1 1 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 Orders Reason Comments Care Coordination Antiemetics Reason Comments Lymphoma 2 week follow up Reason Comments 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 - Other Uric Acid Resul ts Reason Comments Felt Finisher - Other Medication Prob carmencita Reason Comments Care Coordination Pathology Results Specialty Diagnoses / Procedures Referred By Contac Referred To Contact Diagnoses 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) Niesha Galdamez MD [address] [place] [address] [place] [address] [address] [place] [address] Referral ID Status Reason Start Date Expiration Date V isits Requested Visits Authorized [id number] Authorized 05/31/2023 08/29/2023 99 99 Reason Comments Care Coordination C1D1 treatment follo w up call Reason Comments Appointment Reason Comments Research IRB 5024 Informed Consent Specialty Diagnoses / Procedures Referred By Contac t Referred To Contact Hematology / HEMATOLOGY/ONCOLOGY Diagnoses lab/port Procedures LAB/PORT Michael Boykin MD [address] [facility] [place] [address] Nate Jordan Mc [address] [facility] [place] [address] Referral ID Status Reason Start Date Expiration Date V isits Requested Visits Authorized [id number] Authorized 06/17/2023 11/02/2023 99 99 Reason Comments [...] Hematology Diagnoses Diagnosis: Follicular Lymphoma [facility] at[facility] Referring Dr/Office: Self Biopsy performed: 12/17/23 Facility Bx done at: [facility] Imaging done: PET 11/18/23 Facility [facility] Procedures NEW PATIENT SECOND OPINION Self, Self CiciDorcas cortez MD [address] [place] [address] Referral ID Status Reason Start Date Expiration Date V isits Requested Visits Authorized [id number] New Request 01/28/2024 02/21/2025 1 1 Reason Onset Date Comments Population Health Navigation Outreach 02/02/2024 ACO NO PCP 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 To Contact MOLECULAR & FUNCTIONAL IMAGING Diagnoses Diffuse large B-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) Procedures NM PET/CT SKULL-THIGH SUBSEQUENT PET IMAGING CT ATTENUATION SKULL BASE MID-THIGH Michael Boykin MD [address] [place] [address] [place] [address] Molecular & Functional Imaging [address] [place] [address] Referral ID Status Reason Start Date Expiration Date V isits Requested Visits Authorized [id number] Closed Auto-Generate d Referral 06/17/2024 07/17/2025 1 1 Specialty Diagnoses / [facility] To Contact MOLECULAR & FUNCTIONAL IMAGING Diagnoses Diffuse large B-cell lymphoma, unspecified body region (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 Procedures NM PET/CT SKULL-THIGH SUBSEQUENT PET IMAGING CT ATTENUATION SKULL BASE MID-THIGH Niesha Galdamez MD [address] [place] [address] Molecular [facility] Functional [facility] [address] [place] [address] Referral ID Status Reason Start Date Expiration Date V isits Requested Visits Authorized [id number] Closed Auto-Generate d Referral 04/06/2024 05/06/2025 1 1 Specialty Diagnoses / Procedures Referred By Contac t Referred To Contact MOLECULAR & FUNCTIONAL IMAGING Diagnoses 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) Procedures NM PET/CT SKULL-THIGH SUBSEQUENT PET IMAGING CT ATTENUATION SKULL BASE MID-THIGH Niesha Galdamez MD [address] [place] [address] [facility] [address] [place], [place] [id number] Referral ID Status Reason Start Date Expiration Date V isits Requested Visits Authorized [id number] Closed Auto-Generate d Referral 01/20/2024 02/18/2025 1 1 Specialty Diagnoses / Procedures Referred By Contac t Referred To Contact MOLECULAR & FUNCTIONAL IMAGING Diagnoses Diffuse large B-cell lymphoma, unspecified body region (HCC) Procedures NM PET/CT SKULL-THIGH SUBSEQUENT PET IMAGING CT ATTENUATION SKULL BASE MID-THIGH Niesha Galdamez MD [address] [place] [address] [facility] [address] [place], [place] [id number] Referral ID Status Reason Start Date Expiration Date V isits Requested Visits Authorized [id number] Closed Auto-Generate d Referral 01/21/2024 02/18/2025 1 1 Specialty Diagnoses / Procedures Referred By Contac t Referred To Contact MOLECULAR & FUNCTIONAL IMAGING Diagnoses Diffuse large B-cell lymphoma, unspecified body region (HCC) Procedures NM PET/CT SKULL-THIGH SUBSEQUENT PET IMAGING CT ATTENUATION SKULL BASE MID-THIGH Cleo Feliz, GRAB DRIVER.[address] [place] [address] Molecular [facility] Functional [facility] [address] [place] [address] Referral ID Status Reason Start Date Expiration Date V isits Requested Visits Authorized [id number] Closed Auto-Generate d Referral 10/28/2023 11/26/2024 1 1 Specialty Diagnoses / Procedures Referred By Contac t Referred To Contact MOLECULAR & FUNCTIONAL IMAGING Diagnoses 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 [employer] provides no warranty or guarantee of the accuracy or completeness of information in this document.
[2024-08-30] MEDS: ACETAMINOPHEN 325 MG TABLET 650 MG PO (02:57)
[2024-08-30 02:58] LABS: Influenza Virus A Antigen Negative; Influenza Virus B Antigen Negative; Internal Control Within Normal Limits; Strep A Antigen Screen Negative
[2024-08-30] MEDS: 0.9 % SODIUM CHLORIDE 1,000 ML 1000 ML IV (02:58)
[2024-08-30 02:59] LABS: SARS-CoV-2 Ag POSITIVE (NEGATIVE)
[2024-08-30 03:05] VITALS: BP 111/78; PULSE 105; O2SAT 97
[2024-08-30 03:09] LABS: Hematocrit 37.2 % (42.0-54.0); Hemoglobin 13.3 g/dL (14.0-18.0); Mean Corpuscular HGB Conc 35.8 g/dL (29.9-35.2); Mean Corpuscular Hemoglobin 36.4 pg (25.9-34.0); Mean Corpuscular Volume 101.9 fL (80.0-94.0); Mean Platelet Volume 9.7 fL (9.5-13.5); Platelet Count 131 10^3/uL (150-450); Red Blood Count 3.65 10^6/uL (4.70-6.10); Red Cell Distribution Width 12.1 % (11.0-15.0); White Blood Count 4.4 10^3/uL (4.0-11.0)
[2024-08-30 03:25] LABS: Alanine Aminotransferase 38 U/L (16-63); Albumin Globulin Ratio 1.1; Albumin Level 3.3 g/dL (3.4-5.0); Alkaline Phosphatase 122 U/L (46-116); Anion Gap 14.8; Aspartate Amino Transferase 26 U/L (15-37); BUN Creatinine Ratio 13.1; Bilirubin Total 0.3 mg/dL (0.2-1.0); Calcium 8.4 mg/dL (8.5-10.1); Carbon Dioxide 23.8 mmol/L (21.0-32.0); Chloride 102 mmol/L (98-107); Estimated GFR (African America >60 (>=60 mL/min/1.73m^2); Estimated GFR (Non-African Ame 55 (>=60 mL/min/1.73m^2); Globulin 3.1 g/dL; Glucose 143 mg/dL (74-106); Potassium 3.6 mmol/L (3.5-5.1); Sodium 137 mmol/L (136-145); Total Protein 6.4 g/dL (6.4-8.2)
[2024-08-30 03:29] LABS: Lactate/Lactic Acid 2.9 mmol/L (0.4-2.0)
[2024-08-30 03:46] LABS: Lymphocytes Absolute Manual 0.35 10^3/uL (1.20-3.80); Monocytes Absolute Manual 0.22 10^3/uL (0.30-0.80); Segmented Neut Absolute Manual 3.78 10^3/uL (1.4-6.5)
[2024-08-30 03:47] LABS: Basophils Abs Manual 0.04 10^3/uL (0.00-0.10)
== END 2024-08-30 04:33 | disposition home or self-care (01) ==
PROVIDERS: Emergency Provider Emergency Medicine
DX: U07.1 COVID-19 (principal); Z85.72 Personal history of non-Hodgkin lymphomas; Z87.891 Personal history of nicotine dependence
CPT/HCPCS: 36415; 71046; 80053; 83605; 85007; 85027; 87040; 87070; 87804; 87811; 87880; 93005; 99285

== ENCOUNTER 2024-09-26 23:37 | Emergency (ER) | payer MEDICARE, SELFPAY ==
[2024-09-26 23:42] VITALS: BP 165/93; PULSE 123; TEMP 38.3; O2SAT 94; BMI 25.8
--- OUTSIDE RECORDS SUMMARY | 2024-09-27 00:08 | XMS_ITS | CCD ---
Author Organization [facility] Care Team Providers Care Addiction Therapist Name Role Phone Unavailable Primary Care Provider EMELIA Everett Referring Unavailable Unavailable Primary Care Provider UnavailEMELIA Velazquez Primary Care Physician [phone] Unavailable Primary Care Provider Unavailgaurang Feliz GROUND DEFENCE OFFICER.HOGSHEAD STOCK CLERK, Cleo Unavailable Michael Boykin MD Unavailable [phone] Ivania Jackman RN Unavailable Augustina WILSON Ivania Unavailable MD Chiquita Rivera Attending Provider [phone] Dorcas Bolanos MD Unavailable Niesha Galdamez MD Unavailable [phone] Michael Boykin MD Unavailable Emelia Gonzalez MD Primary Care Provider SELF, SELF Referring Unavailable DORCAS BOLANOS Attending Unavailable Krystyna Miller Unavailable Martina Marshall RN Unavailable Niesha Galdamez MD Unavailable [phone] Kadeem Changtlin Unavailable Martina Marshall RN Unavailable MD Chiquita Rivera Attending Provider [phone] Giana Chang Unavailable Kadeem Changtlin Unavailable Chiquita RIVERA Attending Unavailable Michael Boykin Referring Unavailable Chiquita RIVERA Attending Unavailable NILL, Chiquita Martins Attending Unavailable NILL, Chiquita Martins Attending Unavailable NILL, Chiquita Martins Attending Unavailable NILL, Chiquita Martins Attending Unavailable Nill, Chiquita Martins Attending Unavailable Nill, Chiquita R Admitting Unavailable Nill, Chiquita R Attending Unavailable Nill, Chiquita R Admitting Unavailable Emelia Waldron MD Primary Care Provider WINTER, NIESHA Referring Unavailable WINTER, NIESHA Referring Unavailable Tristen VARELA Attending Unavailable WINTER, NIESHA Referring Unavailable Tristen VARELA Attending Unavailable NABILA CHERY Attending Unavailable Tristen VARELA Attending Unavailable Tristen VARELA Attending Unavailable ASHUTOSH, MICHAEL R Referring Unavailable BOKYIN, MICHAEL R Referring Unavailable BOYKIN MICHAEL R Attending Unavailable WINTER, NIESHA Referring Unavailable BOYKIN, MICHAEL R Attending Unavailable BOYKIN, MICHAEL R Referring Unavailable WINTER, NIESHA Referring Unavailable WINTER, NIESHA Referring Unavailable ASHUTOSH MICHAEL R Attending Unavailable ASHUTOSH, MICHAEL R Referring Unavailable EMELIA WALDRON Primary Care Unavailable FELICITAS BOYKINIAN R Attending Unavailable ASHUTOSH, MICHAEL R Referring Unavailable WINTER, NIESHA Referring Unavailable WINTER, NIESHA Referring Unavailable CHIQUITA DAVIS Attending Unavailable RYAN, CHIQUITA Admitting Unavailable EMELIA WALDRON Primary Care Unavailable ASHUTOSH, MICHAEL R Referring Unavailable DYLAN PORTER Attending Unavailable WINTER, NIESHA Referring Unavailable CORDANIELLE MURILLO Referring Unavailable WINTER, NIESHA Referring Unavailable WINTER, NIESHA Referring Unavailable WINTER, NIESHA Attending Unavailable WINTER, NIESHA Referring Unavailable BOYKIN, MICHAEL R Referring Unavailable BOYKIN, MICHALE R Referring Unavailable FELICITAS BOYKINIAN R Attending Unavailable ASHUTOSH, MICHAEL R Referring Unavailable Tristen VARELA Attending Unavailable Tristen VARELA Attending Unavailable BOYKIN, MICHAEL R Referring Unavailable WINTER, NIESHA Attending Unavailable WINTER, NIESHA Attending Unavailable WINTER, NIESHA Referring Unavailable EMELIA WALDRON Primary Care Unavailable WINTER, NIESHA Referring Unavailable WINTER, NIESHA Referring Unavailable WINTER, NIESHA Attending Unavailable WINTER, NIESHA Referring Unavailable BOYKIN, MICHAEL R Referring Unavailable CLEO FELIZ Attending Unavailable BYOKIN, MICHAEL R Referring Unavailable BOYKIN, MICHAEL R Referring Unavailable BOYKIN, MICHAEL R Referring Unavailable CLEO FELIZ Referring Unavailable BOYKIN, MICHAEL R Attending Unavailable WINTER, NIESHA Attending Unavailable WINTER, NIESHA Referring Unavailable BOYKIN, MICHAEL R Attending Unavailable BOYKIN, MICHAEL R Referring Unavailable WINTER, NIESHA Attending Unavailable NIESHA GALDAMEZ Referring Unavailable MICHAEL BOYKIN Referring Unavailable MICHAEL BOYKIN Referring Unavailable Allergies Allergy Classification Reported Allergen(s) Allergy Type Date of Onset Reaction(s) Facility Allopurinol (4 sources) Allopurinol Drug Allergy 07-08-20 [facility] (20 sources) Allopurinol; Translations: [allopurinol] Drug Allergy 07-08-20 [facility] (20 sources) Glucocorticoid preparation; Translations: [CORTICOSTEROIDS (GLUCOCORTICOIDS)] Propensity to adverse reactions to drug 03-30-20 Contraindicati on-Medical Surgical [facility] (1 source) No Known Medication Allergies; Translations: [No Known Medication Allergies] Propensity to adverse reactions (disorder) [facility] Repository Medications Current Medications Medication Drug Class(es) Dates Sig (Normalized) Sig (Original) acyclovir 400 mg oral tablet (20 sources) Herpesvirus Nucleoside Analog DNA Polymerase Inhibitor, [...] Take 1 tablet by mouth every afternoon. 90 tablet 3 07/19/2024 Active Comment on above: Take 1 tablet [...] mg / trimethoprim 160 mg oral tablet (20 sources) Dihydrofolate Reductase Inhibitor Antibacterial, Sulfonamide Antimicrobial [...] 4 04-06-2024 Chronic Deficiency and other anemia (19 sources) Pancytopenia; Translations: [Other pancytopenia] Onset: 4 [...] in situ 06-17-2023 Episodic Residual codes; unclassified (2 sources) At risk of healthcare associated infection; Translations: [Other specified personal risk factors, not elsewhere classified] Onset: 4 04-06-2024 Episodic Thyroid disorders (20 sources) Hypothyroidism; Translations: [Hypothyroidism, unspecified] Onset: 3 08-03-2015 Chronic Unclassified (1 source) Patient encounter status; Translations: [Encounter for screening for lung cancer] Unclassified (1 source) Lymphoma Onset: Past or Other Problems Problem Classification Problem Date Documented Da te Episodic/Chronic Coagulation and hemorrhagic disorders (20 sources) Platelet count below reference range; Translations: [Thrombocytopenia, unspecified] Onset: 08-06-2023 Resolved: 03-09-2024 08-06-2023 Chronic Complications of surgical procedures or medical care (18 sources) Other and unspecified complications of medical care, not elsewhere classified; 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)] Onset: 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-2024 Resolved: 04-17-2024 04-17-2024 Episodic Headache; including migraine (18 sources) Headache; Translations: [Headache] Onset: 04-14-2024 Resolved: 04-14-2024 04-14-2024 Episodic Nausea and vomiting (20 sources) Chemotherapy-induce d nausea and vomiting; Translations: [Nausea with vomiting, unspecified] Onset: 04-06-2024 04-01-2024 Episodic Other aftercare (1 source) Encounter for therapeutic drug level monitoring; Translations: [Encounter for monitoring cardiotoxic drug therapy] Onset: 02-24-2024 Episodic Other aftercare (1 source) Other long line teamster (current) drug therapy; Translations: [Encounter for monitoring cardiotoxic drug therapy] Onset: 02-24-2024 Episodic Other gastrointestinal disorders (18 sources) Diarrhea; Translations: [Diarrhea, unspecified] Onset: 04-11-2024 04-11-2024 Episodic Other hematologic conditions (1 source) Personal history of diseases of the blood and blood-forming organs and certain disorders involving the immune mechanism; Translations: [Personal history of diseases of blood and blood-forming organs] Onset: 02-24-2024 Episodic Other lower respiratory disease (18 sources) Rib pain; Translations: [Pleurodynia] Onset: 04-14-2024 Resolved: 04-14-2024 04-14-2024 Episodic Residual codes; unclassified (18 sources) At risk of disease; Translations: [Other specified personal risk factors, not elsewhere classified] Onset: 04-23-2024 04-01-2024 Episodic Residual codes; unclassified (20 sources) Past history of procedure; Translations: [Personal history of other medical treatment] Onset: 04-06-2024 04-06-2024 Episodic Residual codes; unclassified (18 sources) Edema of right lower limb; Translations: [Localized edema] Onset: 04-07-2024 04-09-2024 Episodic Residual codes; unclassified (18 sources) At risk for infection; Translations: [Other specified personal risk factors, not elsewhere classified] Onset: 04-06-2024 04-23-2024 Episodic Residual codes; unclassified (1 source) Personal history of other medical treatment; Translations: [History of engineered cell therapy infusion] Onset: 04-22-2024 Episodic Results Test Name Value Interpretation Reference Range Facility CNPTOUTREACHon 09-08-2024 CNPTOUTREACH Normal [facility] CNPNon 08-30-2024 CNPN Normal [facility] CNOVSPon 07-19-2024 CNOVSP Normal [facility] General Surgery Office/Clini c Noteon 07-14-2024 General Surgery [...] inactivated - Not Given Patient Refuses Normal [facility] Comment on above: Result Comment: Elec tronically Signed By: MIGUEL LOFTON, Chiquita Mas\Date and Time Signed: 07/14/24 14:59 EDT Reminderson 07-14-2024 Reminders Reminders From: Ada Belle LPN To: N - Clinical; Sent: 07/14/2024 14:58:46 EDT Show up: 05/23/2027 07:00:00 EDT Subject: colonoscopy recall Due Date/Time: 06/23/2027 07:00:00 EDT Reminder/Recall Patient due for surveillance colonoscopy 06/23/2027 due to history of colon polyps. Normal [facility] CBC W Auto Differential pane l (Bld)on 07-07-2024 Basophils (Bld) [#/Vol] [facility] Basophils/100 WBC (Bld) 0.8 % [facility] Differential cell count method Nom (Bld) Auto [facility] Eosinophils (Bld) [#/Vol] 0.04 10*3/uL [facility] Eosinophils/100 WBC (Bld) 1.6 % [facility] Erythrocyte distribution width (RBC) [Ratio] 14.8 % 11.5 - 15.0 % [facility] Hematocrit (Bld) [Volume fraction] 36.2 % Low 39.0 - 51.0 % [facility] Hemoglobin (Bld) [Mass/Vol] 13.2 g/dL 13.0 - 17.0 g/dL [facility] Immature granulocytes (Bld) [#/Vol] [facility] Immature granulocytes/100 WBC (Bld) 0.8 % [facility] Interpretation and review of laboratory results Abnormal [facility] Lymphocytes (Bld) [#/Vol] 0.28 10*3/uL Low [facility] Lymphocytes/100 WBC (Bld) 10.9 % [facility] MCH (RBC) [Entitic mass] 36.9 pg High 26.0 - 34.0 pg [facility] MCHC (RBC) [Mass/Vol] 36.5 g/dL High 30.5 - 36.0 g/dL [facility] MCV (RBC) [Entitic vol] 101.1 fL High 80.0 - 100.0 fL [facility] Monocytes (Bld) [#/Vol] 0.57 10*3/uL NINF [facility] Monocytes/100 WBC (Bld) 22.3 % [facility] Neutrophils (Bld) [#/Vol] 1.63 10*3/uL [facility] Neutrophils/100 WBC (Bld) 63.6 % [facility] Nucleated RBC (Bld) [#/Vol] NINF [facility] Nucleated RBC/100 WBC (Bld) [Ratio] 0.0 % /100 WBC [facility] Platelet mean volume (Bld) [Entitic vol] 9.7 fL 9.0 - 12.7 fL [facility] Platelets (Bld) [#/Vol] 128 10*3/uL Low [facility] RBC (Bld) [#/Vol] 3.58 10*6/uL Low 4.20 - 6.00 m/uL [facility] WBC (Bld) [#/Vol] 2.56 10*3/uL Low [facility] Basophils (Bld) [#/Vol] 10*3/uL Normal <0.11 [facility] Comment on above: Order Comment: Speci men Type: BLOOD SPECIMENOrdering Facility: [facility] Address: [address] [place] [address] Performed By: #### 5 7021-8 ####[facility] LABCLIA [id number] [place] [address] Basophils/100 WBC (Bld) 0.8 % Normal [facility] Comment on above: Order Comment: Speci men Type: BLOOD SPECIMENOrdering Facility: [facility] Address: [address] [place] [address] Performed By: #### 5 7021-8 ####[facility] LABCLIA [id number] [place] [address] Differential cell count method Nom (Bld) Auto Normal [facility] Comment on above: Order Comment: Speci men Type: BLOOD SPECIMENOrdering Facility: [facility] Address: [address] [place] [address] Performed By: #### 5 7021-8 ####[facility] LABCLIA [id number] [place] [address] Eosinophils (Bld) [#/Vol] 0.04 10*3/uL Normal <0.46 [facility] Comment on above: Order Comment: Speci men Type: BLOOD SPECIMENOrdering Facility: [facility] Address: [address] [place] [address] Performed By: #### 5 7021-8 ####[facility] LABCLIA [id number] [place] [address] Eosinophils/100 WBC (Bld) 1.6 % Normal [facility] Comment on above: Order Comment: Speci men Type: BLOOD SPECIMENOrdering Facility: [facility] Address: [address] [place] [address] Performed By: #### 5 7021-8 ####[facility] LABCLIA [id number] [place] [address] Erythrocyte distribution width (RBC) [Ratio] 14.8 % Normal 11.5-15.0 [facility] Comment on above: Order Comment: Speci men Type: BLOOD SPECIMENOrdering Facility: [facility] Address: [address] [place] [address] Performed By: #### 5 7021-8 ####[facility] LABCLIA [id number] [place] [address] Hematocrit (Bld) [Volume fraction] 36.2 % Low 39.0-51.0 [facility] Comment on above: Order Comment: Speci men Type: BLOOD SPECIMENOrdering Facility: [facility] Address: [address] [place] [address] Performed By: #### 5 7021-8 ####[facility] LABCLIA [id number] [place] [address] Hemoglobin (Bld) [Mass/Vol] 13.2 g/dL Normal 13.0-17.0 [facility] Comment on above: Order Comment: Speci men Type: BLOOD SPECIMENOrdering Facility: [facility] Address: [address] [place] [address] Performed By: #### 5 7021-8 ####[facility] LABCLIA [id number] [place] [address] Immature granulocytes (Bld) [#/Vol] 10*3/uL Normal <0.10 [facility] Comment on above: Order Comment: Speci men Type: BLOOD SPECIMENOrdering Facility: [facility] Address: [address] [place] [address] Performed By: #### 5 7021-8 ####[facility] LABCLIA [id number] [place] [address] Immature granulocytes/100 WBC (Bld) 0.8 % Normal [facility] Comment on above: Order Comment: Speci men Type: BLOOD SPECIMENOrdering Facility: [facility] Address: [address] [place] [address] Performed By: #### 5 7021-8 ####[facility] LABCLIA [id number] [place] [address] Lymphocytes (Bld) [#/Vol] 0.28 10*3/uL Low 1.00-4.00 [facility] Comment on above: Order Comment: Speci men Type: BLOOD SPECIMENOrdering Facility: [facility] Address: [address] [place] [address] Performed By: #### 5 7021-8 ####[facility] LABCLIA [id number] [place] [address] Lymphocytes/100 WBC (Bld) 10.9 % Normal [facility] Comment on above: Order Comment: Speci men Type: BLOOD SPECIMENOrdering Facility: [facility] Address: [address] [place] [address] Performed By: #### 5 7021-8 ####[facility] LABCLIA [id number] [place] [address] MCH (RBC) [Entitic mass] 36.9 pg High 26.0-34.0 [facility] Comment on above: Order Comment: Speci men Type: BLOOD SPECIMENOrdering Facility: [facility] Address: [address] [place] [address] Performed By: #### 5 7021-8 ####[facility] LABCLIA [id number] [place] [address] MCHC (RBC) [Mass/Vol] 36.5 g/dL High 30.5-36.0 [facility] Comment on above: Order Comment: Speci men Type: BLOOD SPECIMENOrdering Facility: [facility] Address: [address] [place] [address] Performed By: #### 5 7021-8 ####[facility] LABCLIA [id number] [place] [address] MCV (RBC) [Entitic vol] 101.1 fL High 80.0-100.0 [facility] Comment on above: Order Comment: Speci men Type: BLOOD SPECIMENOrdering Facility: [facility] Address: [address] [place] [address] Performed By: #### 5 7021-8 ####[facility] LABCLIA [id number] [place] [address] Monocytes (Bld) [#/Vol] 0.57 10*3/uL Normal <0.87 [facility] Comment on above: Order Comment: Speci men Type: BLOOD SPECIMENOrdering Facility: [facility] Address: [address] [place] [address] Performed By: #### 5 7021-8 ####[facility] LABIA [id number] [place] [address] Monocytes/100 WBC (Bld) 22.3 % Normal [facility] Comment on above: Order Comment: Speci men Type: BLOOD SPECIMENOrdering Facility: [facility] Address: [address] [place] [address] Performed By: #### 5 7021-8 ####[facility] LABCLIA [id number] [place] [address] Neutrophils (Bld) [#/Vol] 1.63 10*3/uL Normal 1.45-7.50 [facility] Comment on above: Order Comment: Speci men Type: BLOOD SPECIMENOrdering Facility: [facility] Address: [address] [place] [address] Performed By: #### 5 7021-8 ####[facility] LABCLIA [id number] [place] [address] Neutrophils/100 WBC (Bld) 63.6 % Normal [facility] Comment on above: Order Comment: Speci men Type: BLOOD SPECIMENOrdering Facility: [facility] Address: [address] [place] [address] Performed By: #### 5 7021-8 ####[facility] LABCLIA [id number] [place] [address] Nucleated RBC (Bld) [#/Vol] 10*3/uL Normal <0.01 [facility] Comment on above: Order Comment: Speci men Type: BLOOD SPECIMENOrdering Facility: [facility] Address: [address] [place] [address] Performed By: #### 5 7021-8 ####[facility] LABCLIA [id number] [place] [address] Nucleated RBC/100 WBC (Bld) [Ratio] 0.0 /100 WBC Normal [facility] Comment on above: Order Comment: Speci men Type: BLOOD SPECIMENOrdering Facility: [facility] Address: [address] [place] [address] Performed By: #### 5 7021-8 ####[facility] LABCLIA [id number] [place] [address] Platelet mean volume (Bld) [Entitic vol] 9.7 fL Normal 9.0-12.7 [facility] Comment on above: Order Comment: Speci men Type: BLOOD SPECIMENOrdering Facility: [facility] Address: [address] [place] [address] Performed By: #### 5 7021-8 ####[facility] LABCLIA [id number] [place] [address] Platelets (Bld) [#/Vol] 128 10*3/uL Low 150-400 [facility] Comment on above: Order Comment: Speci men Type: BLOOD SPECIMENOrdering Facility: [facility] Address: [address] [place] [address] Performed By: #### 5 7021-8 ####[facility] LABCLIA [id number] [place] [address] RBC (Bld) [#/Vol] 3.58 10*6/uL Low 4.20-6.00 [facility] Comment on above: Order Comment: Speci men Type: BLOOD SPECIMENOrdering Facility: [facility] Address: [address] [place] [address] Performed By: #### 5 7021-8 ####[facility] LABCLIA [id number] [place] [address] WBC (Bld) [#/Vol] 2.56 10*3/uL Low 3.70-11.00 [facility] Comment on above: Order Comment: Speci men Type: BLOOD SPECIMENOrdering Facility: [facility] Address: [address] [place] [address] Performed By: #### 5 7021-8 ####[facility] LABCLIA [id number] [place] [address] Comprehensive metabolic 2000 panelOrdered By: Benson Alcaraz on 07-07-2024 Albumin [Mass/Vol] 4.6 g/dL 3.9 - 4.9 g/dL [facility] ALP [Catalytic activity/Vol] 102 U/L 38 - 113 U/L [facility] ALT [Catalytic activity/Vol] 32 U/L 10 - 54 U/L [facility] Anion gap [Moles/Vol] 13 mmol/L 8 - 15 mmol/L [facility] AST [Catalytic activity/Vol] [facility] Comment on above: Unable to assay. Garo calvillo significantly hemolyzed. Bilirubin [Mass/Vol] 0.5 mg/dL 0.2 - 1 .3 mg/dL [facility] Calcium [Mass/Vol] 9.3 mg/dL 8.5 - 10. 2 mg/dL [facility] Chloride [Moles/Vol] 106 mmol/L 98 - 10 7 mmol/L [facility] CO2 [Moles/Vol] 20 mmol/L Low 22 - 30 mmol/L [facility] Creatinine [Mass/Vol] 0.91 mg/dL 0.73 - 1.22 mg/dL [facility] GFR/1.73 sq M.predicted among non-blacks MDRD (S/P/Bld) [Vol rate/Area] 92 mL/min/{1.73_m2} - PINF [facility] Comment on above: Estimated Glomerular Filtration Rate [...] [Mass/Vol] 98 mg/dL 74 - 99 mg/dL [facility] Comment on above: The [place] [employer]ab[employer] Association (ADA) provides guidance for [...] Standards of Medical Care in Diabetes 2016, [place] [employer]. Diabetes Care. 2016.39(Suppl 1). Interpretation and review of laboratory results Abnormal [facility] Potassium [Moles/Vol] 4.5 mmol/L 3.7 - 5.1 mmol/L [facility] Protein [Mass/Vol] 6.1 g/dL Low 6.3 - 8.0 g/dL [facility] Sodium [Moles/Vol] 139 mmol/L 136 - 144 mmol/L [facility] Urea nitrogen [Mass/Vol] 19 mg/dL 9 - 24 mg/dL [facility] Comprehensive metabolic 2000 panelon 07-07-2024 Albumin [Mass/Vol] 4.6 g/dL Normal 3.9-4.9 [facility] Comment on above: Order Comment: Speci men Type: BLOOD SPECIMENOrdering Facility: [facility] Address: [address] [place] [address] Performed By: #### 1 9123-9, 85570-8 ####[facility] LABCLIA [id number] [place] [address] ALP [Catalytic activity/Vol] 102 U/L Normal 38-113 [facility] Comment on above: Order Comment: Speci men Type: BLOOD SPECIMENOrdering Facility: [facility] Address: [address] [place] [address] Performed By: #### 1 9123-9, 96349-8 ####[facility] LABCLIA [id number] [place] [address] ALT [Catalytic activity/Vol] 32 U/L Normal 10-54 [facility] Comment on above: Order Comment: Speci men Type: BLOOD SPECIMENOrdering Facility: [facility] Address: [address] [place] [id number] Performed By: #### 1 9123-9, 82054-0 ####[facility] LABCLIA [id number] [place] [address] Anion gap [Moles/Vol] 13 mmol/L Normal 8-15 [facility] Comment on above: Order Comment: Speci men Type: BLOOD SPECIMENOrdering Facility: [facility] Address: [address] [place] [address] Performed By: #### 1 9123-9, ####[facility] LABCLIA [id number] [place] [address] AST [Catalytic activity/Vol] Normal [facility] Comment on above: Order Comment: Speci men Type: BLOOD SPECIMENOrdering Facility: [facility] Address: [address] [place] [address] Result Comment: Unab le to assay. Specimen significantly hemolyzed. Performed By: #### 1 239, ####[facility] LABCLIA [id number] [place] [address] Bilirubin [Mass/Vol] 0.5 mg/dL Normal 0.2-1.3 [facility] Comment on above: Order Comment: Speci men Type: BLOOD SPECIMENOrdering Facility: [facility] Address: [address] [place] [address] Performed By: #### 1 239, ####[facility] LABCLIA [id number] [place] [address] Calcium [Mass/Vol] 9.3 mg/dL Normal 8.5-10.2 [facility] Comment on above: Order Comment: Speci men Type: BLOOD SPECIMENOrdering Facility: [facility] Address: [address] [place] [address] Performed By: #### 1 239, ####[facility] LABCLIA [id number] [place] [address] Chloride [Moles/Vol] 106 mmol/L Normal 98-107 [facility] Comment on above: Order Comment: Speci men Type: BLOOD SPECIMENOrdering Facility: [facility] Address: [address] [place] [address] Performed By: #### 1 91239, ####[facility] LABCLIA [id number] [place] [address] CO2 [Moles/Vol] 20 mmol/L Low 22-30 [facility] Comment on above: Order Comment: Speci men Type: BLOOD SPECIMENOrdering Facility: [facility] Address: [address] [place], [place] [address] Performed By: #### 1 9123-9, ####[facility] LABCLIA [id number] [place] [address] Creatinine [Mass/Vol] 0.91 mg/dL Normal 0.73-1.22 [facility] Comment on above: Order Comment: Speci men Type: BLOOD SPECIMENOrdering Facility: [facility] Address: [address] [place] [address] Performed By: #### 1 9123-9, ####[facility] LABCLIA [id number] [place] [address] Creatinine and Glomerular filtration rate.predicted panel (S/P/Bld) 92 mL/min/1.73m??? Normal >=60 [facility] Comment on above: Order Comment: Speci men Type: BLOOD SPECIMENOrdering Facility: [facility] Address: [address] [place] [address] Result Comment: Carol mated Glomerular Filtration Rate [...] actual GFR. Performed By: #### 1 9123-9, ####[facility] LABCLIA [id number] [place] [address] Glucose [Mass/Vol] 98 mg/dL Normal 74-99 [facility] Comment on above: Order Comment: Speci men Type: BLOOD SPECIMENOrdering Facility: [facility] Address: [address] [place], [place] [address] Result Comment: The [place] [employer] (ADA) provides guidance for cutoff [...] Standards of Medical Care in Diabetes 2016, [place] [employer]. Diabetes Care. 2016.39(Suppl 1). Performed By: #### 1 9123-9, ####[facility] LABIA [id number] [place] [address] Potassium [Moles/Vol] 4.5 mmol/L Normal 3.7-5.1 [facility] Comment on above: Order Comment: Speci men Type: BLOOD SPECIMENOrdering Facility: [facility] Address: [address] [place] [address] Performed By: #### 1 9123-9, ####[facility] LABIA [id number] [place] [address] Protein [Mass/Vol] 6.1 g/dL Low 6.3-8.0 [facility] Comment on above: Order Comment: Speci men Type: BLOOD SPECIMENOrdering Facility: [facility] Address: [address] [place] [address] Performed By: #### 1 239, 98136-8 ####[facility] LABIA [id number] [place] [address] Sodium [Moles/Vol] 139 mmol/L Normal 136-144 [facility] Comment on above: Order Comment: Speci men Type: BLOOD SPECIMENOrdering Facility: [facility] Address: [address] [place] [address] Performed By: #### 1 239, 26690-0 ####[facility] LABCLIA [id number] [place] [address] Urea nitrogen [Mass/Vol] 19 mg/dL Normal 9-24 [facility] Comment on above: Order Comment: Speci men Type: BLOOD SPECIMENOrdering Facility: [facility] Address: [address] [place] [address] Performed By: #### 1 9123-9, ####[facility] LABCLIA [id number] [place] [address] GLUCOSE, BLOOD (POC)on 07-07 Glucose [Mass/Vol] 92 mg/dL 74 - 99 mg/dL [facility] Comment on above: Location:[facility], [address] [place] [address] , [place], [place], [address] The Accu-Chek Inform II glucose meter has [...] blood gas instrument) in the above situations. [facility] MAGNESIUMon 07-07-2024 Magnesium [Mass/Vol] 2.1 mg/dL 1.7 - 2 .3 mg/dL [facility] Magnesium SerPl-mCncon 07-07 Magnesium [Mass/Vol] 2.1 mg/dL Normal 1.7-2.3 [facility] Comment on above: Order Comment: Speci men Type: BLOOD SPECIMENOrdering Facility: [facility] Address: [address] [place] [address] Performed By: #### 1 9123-9, ####[facility] LABCLIA [id number] [place] [address] Magnesium [Mass/Vol]on 07-07 Interpretation and review of laboratory results Normal [facility] NM PET/CT SKULL-THIGH SUBQon 07-07-2024 NM PET/CT SKULL-THIGH SUBQ Normal [facility] PET+CT Guidance for localiza tion of [...] any questions regarding this interpretation, please call [phone]. If you are unable to reach us at the number above, please feel free to contact [facility] eRadiology at [phone]. DIVISION OF RADIOLOGY * * *Final Report* [...] * Uptake Time: 51 minutes * Radiopharmaceutical: A96-Ejisvjwcknfctdiiin (FDG) COMPARISON: PET/CT 05/07/2024 RESULT: REFERENCES: FDG [...] compared to left. DIVISION OF RADIOLOGY Provider, [facility] - 07/07/2024 * * *Final Report* * [...] * Uptake Time: 51 minutes * Radiopharmaceutical: G16-Twpgqmeqkbkapnycth (FDG) COMPARISON: PET/CT 05/07/2024 RESULT: REFERENCES: FDG [...] any questions regarding this interpretation, please call [phone]. If you are unable to reach us at the number above, please feel free to contact [facility] eRadiology at [phone]. [facility] Radiology Study observation (narrative) [facility] PET+CT Guidance for localiza tion of tumor of Skull base to mid-thigh-- W 18F-FDG IVOrdered By: Ccf Provider on 07-07-2024 [facility] Cheng 06-23-2024 L Specimen: [id number] R eceived: 06/25/24 Status: ABIOLA Barros Num: [id number] Spec Type: Surgical Subm Dr: Chiquita Rivera MD FACS Tissues: A Colon Biopsy (SIGMOID COLON POLYP) B Colon Biopsy (DESCENDING COLON POLYP) C Colon Biopsy (SIGMOID COLON POLYP) D Colon Biopsy (RECTAL POLYP) Procedures: HE/8, Gross/Micro L4/4 Age/ Patient Sex Location Account Attending Physician Katia Shaikh 68/M LABELL [id number] Chiquita Rivera MD FACS SPEC NUM: [id number] RECD: 06/25/24 STATUS: ABIOLA BARROS NUM: [id number] FRANDY: 06/23/[address]: Chiquita Rivera MD FACS ENTERED: 06/25/24 [facility] DR: Oleksandr Anguiano SPEC TYPE: Surgical DEPT: ALYSSIA TEJADA ENTERED BY: [id number] RECV BY: [id number] ORDERED: HE/8, Gross/Micro L4/4 ORDERED: HE/8, Gross/Micro L4/4 Pathological Diagnosis A, sigmoid polyp biopsy: -Tubular adenoma B, descending colon polyp polypectomy biopsy: -Tubular adenoma in all fragments C, sigmoid polyp polypectomy: -Tubulovillous adenoma -No evidence of malignancy or high-grade dysplasia D, rectal polyp biopsy: -Tubular adenoma Clinical Information Not given -------- Specimen: [id number] Received: 06/25/24 Status: JENNAFaye Barros Num: [id number] Spec Type: Surgical Subm Dr: Chiquita Rivera MD FACS Tissues: A Colon Biopsy (SIGMOID COLON POLYP) B Colon Biopsy (DESCENDING COLON POLYP) C Colon Biopsy (SIGMOID COLON POLYP) D Colon Biopsy (RECTAL POLYP) Procedures: JOSE R/[place], Gross/Micro L4/4 -------- Patient: Katia Shaikh [id number] (Continued) -------- Specimen: [id number] Received: 06/25/24 (Continued) Signed (signature on file) Caro Ocasio, MD 06/28/24 1242 -------- Specimen: [id number] Received: 06/25/24 Status: ABIOLA Barros Num: [id number] Spec Type: Surgical Subm Dr: Chiquita Rivera MD FACS Tissues: A Colon Biopsy (SIGMOID COLON POLYP) B Colon Biopsy (DESCENDING COLON POLYP) C Colon Biopsy (SIGMOID COLON POLYP) D Colon Biopsy (RECTAL POLYP) Procedures: [place], Gross/Micro L4/4 -------- Patient: Katia Shaikh Mk [id number] (Continued) -------- Specimen: [id number] Received: 06/25/24 (Continued) Gross Description Part A was received in formalin with the patient's name and sigmoid colon polyp is a trevino portion of soft tissue measuring 0.4 cm in greatest dimension. The specimen is entirely submitted in cassette A1. Part B received in formalin with the patient's name and descending colon polyp are 3 trevino portions of soft tissue ranging in size from 0.2 to 0.4 cm in greatest dimension. Specimen is entirely submitted in cassette B1. Part C received in formalin with the patient's name and sigmoid colon polyp is a trevino-brown polypoid shaped soft tissue fragment measuring 1.0 x 0.9 x 0.8 cm. The presumed resection margin is inked black. The specimen is quadrisected and entirely submitted in cassette C1. Part D received in formalin with the patient's name and rectal polyp is a trevino portion of soft tissue measuring 0.5 cm in greatest dimension. The specimen is entirely submitted in cassette D1. Microscopic Description Microscopic examinations are performed supporting the above interpretation CPT Codes 04927k0 -------- -------- Specimen: [id number] Received: 06/25/24 Status: ABIOLA Tannerelizabeth Num: [id number] Spec Type: Surgical Subm Dr: Chiquita Rivera MD FACS Tissues: A Colon Biopsy (SIGMOID COLON POLYP) B Colon Biopsy (DESCENDING COLON POLYP) C Colon Biopsy (SIGMOID COLON POLYP) D Colon Biopsy (RECTAL POLYP) Procedures: HE/[place], Gross/Micro L4/4 -------- Patient: KaushikKatia [id number] (Continued) -------- Signed (signature on file) Caro Ocasio MD 06/28/24 1242 Normal [facility] CBC W Auto Differential pane l (Bld)on 06-17-2024 Basophils (Bld) [#/Vol] [facility] Basophils/100 WBC (Bld) 0.7 % [facility] Differential cell count method Nom (Bld) Auto [facility] Eosinophils (Bld) [#/Vol] 0.05 10*3/uL [facility] Eosinophils/100 WBC (Bld) 1.8 % [facility] Erythrocyte distribution width (RBC) [Ratio] 18.7 % High 11.5 - 15.0 % [facility] Hematocrit (Bld) [Volume fraction] 33.8 % Low 39.0 - 51.0 % [facility] Hemoglobin (Bld) [Mass/Vol] 12.2 g/dL Low 13.0 - 17.0 g/dL [facility] Immature granulocytes (Bld) [#/Vol] [facility] Immature granulocytes/100 WBC (Bld) 0.4 % [facility] Interpretation and review of laboratory results Abnormal [facility] Lymphocytes (Bld) [#/Vol] 0.25 10*3/uL Low [facility] Lymphocytes/100 WBC (Bld) 9.2 % [facility] MCH (RBC) [Entitic mass] 36.0 pg High 26.0 - 34.0 pg [facility] MCHC (RBC) [Mass/Vol] 36.1 g/dL High 30.5 - 36.0 g/dL [facility] MCV (RBC) [Entitic vol] 99.7 fL 80.0 - 100.0 fL [facility] Monocytes (Bld) [#/Vol] 0.59 10*3/uL [facility] Monocytes/100 WBC (Bld) 21.7 % [facility] Neutrophils (Bld) [#/Vol] 1.80 10*3/uL [facility] Neutrophils/100 WBC (Bld) 66.2 % [facility] Nucleated RBC (Bld) [#/Vol] NINF [facility] Nucleated RBC/100 WBC (Bld) [Ratio] 0.0 % /100 WBC [facility] Platelet mean volume (Bld) [Entitic vol] 9.1 fL 9.0 - 12.7 fL [facility] Platelets (Bld) [#/Vol] 119 10*3/uL Low [facility] RBC (Bld) [#/Vol] 3.39 10*6/uL Low 4.20 - 6.00 m/uL [facility] WBC (Bld) [#/Vol] 2.72 10*3/uL Low [facility] Basophils (Bld) [#/Vol] 10*3/uL Normal <0.11 [facility] Comment on above: Order Comment: Speci men Type: BLOOD SPECIMENOrdering Facility: [facility] Address: [address] [place] [address] Performed By: #### 5 7021-8 ####[facility] LABCLIA [id number] [place] [address] Basophils/100 WBC (Bld) 0.7 % Normal [facility] Comment on above: Order Comment: Speci men Type: BLOOD SPECIMENOrdering Facility: [facility] Address: [address] [place] [address] Performed By: #### 5 7021-8 ####[facility] LABCLIA [id number] [place] [address] Differential cell count method Nom (Bld) Auto Normal [facility] Comment on above: Order Comment: Speci men Type: BLOOD SPECIMENOrdering Facility: [facility] Address: [address] [place] [address] Performed By: #### 5 7021-8 ####[facility] LABCLIA [id number] [place] [address] Eosinophils (Bld) [#/Vol] 0.05 10*3/uL Normal <0.46 [facility] Comment on above: Order Comment: Speci men Type: BLOOD SPECIMENOrdering Facility: [facility] Address: [address] [place] [address] Performed By: #### 5 7021-8 ####[facility] LABCLIA [id number] [place] [address] Eosinophils/100 WBC (Bld) 1.8 % Normal [facility] Comment on above: Order Comment: Speci men Type: BLOOD SPECIMENOrdering Facility: [facility] Address: [address] [place] [address] Performed By: #### 5 7021-8 ####[facility] LABCLIA [id number] [place] [address] Erythrocyte distribution width (RBC) [Ratio] 18.7 % High 11.5-15.0 [facility] Comment on above: Order Comment: Speci men Type: BLOOD SPECIMENOrdering Facility: [facility] Address: [address] [place] [address] Performed By: #### 5 7021-8 ####[facility] LABCLIA [id number] [place] [address] Hematocrit (Bld) [Volume fraction] 33.8 % Low 39.0-51.0 [facility] Comment on above: Order Comment: Speci men Type: BLOOD SPECIMENOrdering Facility: [facility] Address: [address] [place] [address] Performed By: #### 5 7021-8 ####[facility] LABCLIA [id number] [place] [address] Hemoglobin (Bld) [Mass/Vol] 12.2 g/dL Low 13.0-17.0 [facility] Comment on above: Order Comment: Speci men Type: BLOOD SPECIMENOrdering Facility: [facility] Address: [address] [place] [address] Performed By: #### 5 7021-8 ####[facility] LABCLIA [id number] [place] [address] Immature granulocytes (Bld) [#/Vol] 10*3/uL Normal <0.10 [facility] Comment on above: Order Comment: Speci men Type: BLOOD SPECIMENOrdering Facility: [facility] Address: [address] [place] [address] Performed By: #### 5 7021-8 ####[facility] LABCLIA [id number] [place] [address] Immature granulocytes/100 WBC (Bld) 0.4 % Normal [facility] Comment on above: Order Comment: Speci men Type: BLOOD SPECIMENOrdering Facility: [facility] Address: [address] [place] [address] Performed By: #### 5 7021-8 ####[facility] LABCLIA [id number] [place] [address] Lymphocytes (Bld) [#/Vol] 0.25 10*3/uL Low 1.00-4.00 [facility] Comment on above: Order Comment: Speci men Type: BLOOD SPECIMENOrdering Facility: [facility] Address: [address] [place] [address] Performed By: #### 5 7021-8 ####[facility] LABCLIA [id number] [place] [address] Lymphocytes/100 WBC (Bld) 9.2 % Normal [facility] Comment on above: Order Comment: Speci men Type: BLOOD SPECIMENOrdering Facility: [facility] Address: [address] [place] [address] Performed By: #### 5 7021-8 ####[facility] LABCLIA [id number] [place] [address] MCH (RBC) [Entitic mass] 36.0 pg High 26.0-34.0 [facility] Comment on above: Order Comment: Speci men Type: BLOOD SPECIMENOrdering Facility: [facility] Address: [address] [place] [address] Performed By: #### 5 7021-8 ####[facility] LABCLIA [id number] [place] [address] MCHC (RBC) [Mass/Vol] 36.1 g/dL High 30.5-36.0 [facility] Comment on above: Order Comment: Speci men Type: BLOOD SPECIMENOrdering Facility: [facility] Address: [address] [place] [address] Performed By: #### 5 7021-8 ####[facility] LABCLIA [id number] [place] [address] MCV (RBC) [Entitic vol] 99.7 fL Normal 80.0-100.0 [facility] Comment on above: Order Comment: Speci men Type: BLOOD SPECIMENOrdering Facility: [facility] Address: [address] [place] [address] Performed By: #### 5 7021-8 ####[facility] LABCLIA [id number] [place] [address] Monocytes (Bld) [#/Vol] 0.59 10*3/uL Normal <0.87 [facility] Comment on above: Order Comment: Speci men Type: BLOOD SPECIMENOrdering Facility: [facility] Address: [address] [place] [address] Performed By: #### 5 7021-8 ####[facility] LABCLIA [id number] [place] [address] Monocytes/100 WBC (Bld) 21.7 % Normal [facility] Comment on above: Order Comment: Speci men Type: BLOOD SPECIMENOrdering Facility: [facility] Address: [address] [place] [address] Performed By: #### 5 7021-8 ####[facility] LABCLIA [id number] [place] [address] Neutrophils (Bld) [#/Vol] 1.80 10*3/uL Normal 1.45-7.50 [facility] Comment on above: Order Comment: Speci men Type: BLOOD SPECIMENOrdering Facility: [facility] Address: [address] [place] [address] Performed By: #### 5 7021-8 ####[facility] LABCLIA [id number] [place] [address] Neutrophils/100 WBC (Bld) 66.2 % Normal [facility] Comment on above: Order Comment: Speci men Type: BLOOD SPECIMENOrdering Facility: [facility] Address: [address] [place] [address] Performed By: #### 5 7021-8 ####[facility] LABCLIA [id number] [place] [address] Nucleated RBC (Bld) [#/Vol] 10*3/uL Normal <0.01 [facility] Comment on above: Order Comment: Speci men Type: BLOOD SPECIMENOrdering Facility: [facility] Address: [address] [place] [address] Performed By: #### 5 7021-8 ####[facility] LABCLIA [id number] [place] [address] Nucleated RBC/100 WBC (Bld) [Ratio] 0.0 /100 WBC Normal [facility] Comment on above: Order Comment: Speci men Type: BLOOD SPECIMENOrdering Facility: [facility] Address: [address] [place] [address] Performed By: #### 5 7021-8 ####[facility] LABCLIA [id number] [place] [address] Platelet mean volume (Bld) [Entitic vol] 9.1 fL Normal 9.0-12.7 [facility] Comment on above: Order Comment: Speci men Type: BLOOD SPECIMENOrdering Facility: [facility] Address: [address] [place] [address] Performed By: #### 5 7021-8 ####[facility] LABCLIA [id number] [place] [address] Platelets (Bld) [#/Vol] 119 10*3/uL Low 150-400 [facility] Comment on above: Order Comment: Speci men Type: BLOOD SPECIMENOrdering Facility: [facility] Address: [address] [place] [address] Performed By: #### 5 7021-8 ####[facility] LABCLIA [id number] [place] [address] RBC (Bld) [#/Vol] 3.39 10*6/uL Low 4.20-6.00 [facility] Comment on above: Order Comment: Speci men Type: BLOOD SPECIMENOrdering Facility: [facility] Address: [address] [place] [address] Performed By: #### 5 7021-8 ####[facility] LABIA [id number] [place] [address] WBC (Bld) [#/Vol] 2.72 10*3/uL Low 3.70-11.00 [facility] Comment on above: Order Comment: Speci men Type: BLOOD SPECIMENOrdering Facility: [facility] Address: [address] [place] [address] Performed By: #### 5 7021-8 ####[facility] LABIA [id number] [place] [address] CNOVSPon 06-17-2024 CNOVSP Normal [facility] metabolic 2000 panelOrdered By: Aurora Moreland on 06-17-2024 Albumin [Mass/Vol] 4.5 g/dL 3.9 - 4.9 g/dL [facility] ALP [Catalytic activity/Vol] 106 U/L 38 - 113 U/L [facility] ALT [Catalytic activity/Vol] 29 U/L 10 - 54 U/L [facility] Anion gap [Moles/Vol] 9 mmol/L 8 - 15 mmol/L [facility] AST [Catalytic activity/Vol] 23 U/L 14 - 40 U/L [facility] Bilirubin [Mass/Vol] 0.5 mg/dL 0.2 - 1 .3 mg/dL [facility] Calcium [Mass/Vol] 9.5 mg/dL 8.5 - 10. 2 mg/dL [facility] Chloride [Moles/Vol] 109 mmol/L High 98 - 10 7 mmol/L [facility] CO2 [Moles/Vol] 24 mmol/L 22 - 30 mmol/L [facility] Creatinine [Mass/Vol] 1.19 mg/dL 0.73 - 1.22 mg/dL [facility] GFR/1.73 sq M.predicted among non-blacks MDRD (S/P/Bld) [Vol rate/Area] 67 mL/min/{1.73_m2} - PINF [facility] Comment on above: Estimated Glomerular Filtration Rate [...] [Mass/Vol] 98 mg/dL 74 - 99 mg/dL [facility] [facility] Comment on above: The [place] Diabete [employer] Association (ADA) provides guidance for [...] Standards of Medical Care in Diabetes 2016, [place] [employer] Association. Diabetes Care. 2016.39(Suppl 1). Interpretation and review of laboratory results Abnormal [facility] Potassium [Moles/Vol] 4.4 mmol/L 3.7 - 5.1 mmol/L [facility] Protein [Mass/Vol] 6.3 g/dL 6.3 - 8.0 g/dL [facility] Sodium [Moles/Vol] 142 mmol/L 136 - 144 mmol/L [facility] Urea nitrogen [Mass/Vol] 16 mg/dL 9 - 24 mg/dL [facility] Comprehensive metabolic 2000 panelon 06-17-2024 Albumin [Mass/Vol] 4.5 g/dL Normal 3.9-4.9 [facility] Comment on above: Order Comment: Speci men Type: BLOOD SPECIMENOrdering Facility: [facility] Address: [address] [place] [address] Performed By: #### 2 4323-8 ####[facility] LABCLIA [id number] [place] [address] ALP [Catalytic activity/Vol] 106 U/L Normal 38-113 [facility] Comment on above: Order Comment: Speci men Type: BLOOD SPECIMENOrdering Facility: [facility] Address: [address] [place] [address] Performed By: #### 2 4323-8 ####[facility] LABCLIA [id number] [place] [address] ALT [Catalytic activity/Vol] 29 U/L Normal 10-54 [facility] Comment on above: Order Comment: Speci men Type: BLOOD SPECIMENOrdering Facility: [facility] Address: [address] [place] [address] Performed By: #### 2 4323-8 ####[facility] LABCLIA [id number] [place] [address] Anion gap [Moles/Vol] 9 mmol/L Normal 8-15 [facility] Comment on above: Order Comment: Speci men Type: BLOOD SPECIMENOrdering Facility: [facility] Address: [address] [place] [address] Performed By: #### 2 4323-8 ####[facility] LABCLIA [id number] [place] [address] AST [Catalytic activity/Vol] 23 U/L Normal 14-40 [facility] Comment on above: Order Comment: Speci men Type: BLOOD SPECIMENOrdering Facility: [facility] Address: [address] [place] [address] Performed By: #### 2 4323-8 ####[facility] LABCLIA [id number] [place] [address] Bilirubin [Mass/Vol] 0.5 mg/dL Normal 0.2-1.3 [facility] Comment on above: Order Comment: Speci men Type: BLOOD SPECIMENOrdering Facility: [facility] Address: [address] [place] [address] Performed By: #### 2 4323-8 ####[facility] LABCLIA [id number] [place] [address] Calcium [Mass/Vol] 9.5 mg/dL Normal 8.5-10.2 [facility] Comment on above: Order Comment: Speci men Type: BLOOD SPECIMENOrdering Facility: [facility] Address: [address] [place] [address] Performed By: #### 2 4323-8 ####[facility] LABCLIA [id number] [place] [address] Chloride [Moles/Vol] 109 mmol/L High 98-107 [facility] Comment on above: Order Comment: Speci men Type: BLOOD SPECIMENOrdering Facility: [facility] Address: [address] [place] [address] Performed By: #### 2 4323-8 ####[facility] LABCLIA [id number] [place] [address] CO2 [Moles/Vol] 24 mmol/L Normal 22-30 [facility] Comment on above: Order Comment: Speci men Type: BLOOD SPECIMENOrdering Facility: [facility] Address: [address] [place] [address] Performed By: #### 2 4323-8 ####[facility] LABCLIA [id number] [place] [address] Creatinine [Mass/Vol] 1.19 mg/dL Normal 0.73-1.22 [facility] Comment on above: Order Comment: Sara randle Type: BLOOD SPECIMENOrdering Facility: [facility] Address: [address] [place] [address] Performed By: #### 2 4323-8 ####[facility] LABCLIA [id number] [place] [address] Creatinine and Glomerular filtration rate.predicted panel (S/P/Bld) 67 mL/min/1.73m??? Normal >=60 [facility] Comment on above: Order Comment: Sara randle Type: BLOOD SPECIMENOrdering Facility: [facility] Address: [address] [place] [address] Result Comment: Carol mated Glomerular Filtration Rate [...] actual GFR. Performed By: #### 2 4323-8 ####[facility] LABCLIA [id number] [place] [address] Glucose [Mass/Vol] 98 mg/dL Normal 74-99 [facility] Comment on above: Order Comment: Sara randle Type: BLOOD SPECIMENOrdering Facility: [facility] Address: [address] [place] [address] Result Comment: The [place] Diabetes Association (ADA) provides guidance for cutoff [...] Standards of Medical Care in Diabetes 2016, [place] Diabetes Association. Diabetes Care. 2016.39(Suppl 1). Performed By: #### 2 4323-8 ####[facility] LABCLIA [id number] [place] [address] Potassium [Moles/Vol] 4.4 mmol/L Normal 3.7-5.1 [facility] Comment on above: Order Comment: Speci men Type: BLOOD SPECIMENOrdering Facility: [facility] Address: [address] [place] [address] Performed By: #### 2 4323-8 ####[facility] LABCLIA [id number] [place] [address] Protein [Mass/Vol] 6.3 g/dL Normal 6.3-8.0 [facility] Comment on above: Order Comment: Speci men Type: BLOOD SPECIMENOrdering Facility: [facility] Address: [address] [place] [address] Performed By: #### 2 4323-8 ####[facility] LABCLIA [id number] [place] [address] Sodium [Moles/Vol] 142 mmol/L Normal 136-144 [facility] Comment on above: Order Comment: Speci men Type: BLOOD SPECIMENOrdering Facility: [facility] Address: [address] [place] [address] Performed By: #### 2 4323-8 ####[facility] LABCLIA [id number] [place] [address] Urea nitrogen [Mass/Vol] 16 mg/dL Normal 9-24 [facility] Comment on above: Order Comment: Speci men Type: BLOOD SPECIMENOrdering Facility: [facility] Address: [address] [place] [address] Performed By: #### 2 4323-8 ####[facility] LABCLIA [id number] [place] [address] Ambulatory Visit Summaryon 0 06-08-2024 Ambulatory Visit Summary Ambulatory Visit Summary KATIA SHAIKH :1955 Visit Date:06/08/2024 Ambulatory Visit Instructions Your Diagnosis Abnormal PET scan of colon Your Care Team Attending Physician - Chiquita [...] for choosing us for your care. Normal [facility] 06-02-2024 CNPN Normal [facility] 05-17-2024 CNPN Normal [facility] C-REACTIVE PROTEINon 024 CRP [Mass/Vol] mg/dL [facility] mg/dL [facility] CBC W Auto Differential pane l (Bld)on 05-13-2024 Basophils (Bld) [#/Vol] [facility] Basophils/100 WBC (Bld) 1.3 % [facility] Differential cell count method Nom (Bld) Auto [facility] Eosinophils (Bld) [#/Vol] 0.05 10*3/uL [facility] Eosinophils/100 WBC (Bld) 3.3 % [facility] Erythrocyte distribution width (RBC) [Ratio] 19.9 % High 11.5 - 15.0 % [facility] Hematocrit (Bld) [Volume fraction] 36.9 % Low 39.0 - 51.0 % [facility] Hemoglobin (Bld) [Mass/Vol] 12.9 g/dL Low 13.0 - 17.0 g/dL [facility] Immature granulocytes (Bld) [#/Vol] [facility] Immature granulocytes/100 WBC (Bld) 1.3 % [facility] Interpretation and review of laboratory results Abnormal [facility] Lymphocytes (Bld) [#/Vol] 0.21 10*3/uL Low [facility] Lymphocytes/100 WBC (Bld) 13.8 % [facility] MCH (RBC) [Entitic mass] 33.2 pg 26.0 - 34.0 pg [facility] MCHC (RBC) [Mass/Vol] 35.0 g/dL 30.5 - 36.0 g/dL [facility] MCV (RBC) [Entitic vol] 95.1 fL 80.0 - 100.0 fL [facility] Monocytes (Bld) [#/Vol] 0.31 10*3/uL [facility] Monocytes/100 WBC (Bld) 20.4 % [facility] Neutrophils (Bld) [#/Vol] 0.91 10*3/uL Low [facility] Neutrophils/100 WBC (Bld) 59.9 % [facility] Nucleated RBC (Bld) [#/Vol] NINF [facility] Nucleated RBC/100 WBC (Bld) [Ratio] 0.0 % /100 WBC [facility] Platelet mean volume (Bld) [Entitic vol] 9.7 fL 9.0 - 12.7 fL [facility] Platelets (Bld) [#/Vol] 107 10*3/uL Low [facility] RBC (Bld) [#/Vol] 3.88 10*6/uL Low 4.20 - 6.00 m/uL [facility] WBC (Bld) [#/Vol] 1.52 10*3/uL Low [facility] Comment on above: No clot detected. [facility] Basophils (Bld) [#/Vol] 10*3/uL Normal <0.11 [facility] Comment on above: Order Comment: Speci men Type: BLOOD SPECIMENOrdering Facility: [facility] Address: [address] [place] [address] Performed By: #### 5 7021-8 ####[facility] [id number] [place] [address] [place] Basophils/100 WBC (Bld) 1.3 % Normal [facility] Comment on above: Order Comment: Speci men Type: BLOOD SPECIMENOrdering Facility: [facility] Address: [address] [place] [address] Performed By: #### 5 7021-8 ####[facility] [place] [id number] [place] [address] [place] Differential cell count method Nom (Bld) Auto Normal [facility] Comment on above: Order Comment: Speci men Type: BLOOD SPECIMENOrdering Facility: [facility] Address: [address] [place] [address] Performed By: #### 5 7021-8 ####[facility] [id number] [place] [address] [place] Eosinophils (Bld) [#/Vol] 0.05 10*3/uL Normal <0.46 [facility] Comment on above: Order Comment: Speci men Type: BLOOD SPECIMENOrdering Facility: [facility] Address: [address] [place] [address] Performed By: #### 5 7021-8 ####[facility] [id number] [place] [address] [place] Eosinophils/100 WBC (Bld) 3.3 % Normal [facility] Comment on above: Order Comment: Speci men Type: BLOOD SPECIMENOrdering Facility: [facility] Address: [address] [place] [address] Performed By: #### 5 7021-8 ####[facility] [place] [id number] [place] [address] [place] Erythrocyte distribution width (RBC) [Ratio] 19.9 % High 11.5-15.0 [facility] Comment on above: Order Comment: Speci men Type: BLOOD SPECIMENOrdering Facility: [facility] Address: [address] [place] [address] Performed By: #### 5 7021-8 ####[facility] [place] [id number] [place] [address] [place] Hematocrit (Bld) [Volume fraction] 36.9 % Low 39.0-51.0 [facility] Comment on above: Order Comment: Speci men Type: BLOOD SPECIMENOrdering Facility: [facility] Address: [address] [place] [address] Performed By: #### 5 7021-8 ####[facility] [place] [id number] [place] [address] [place] Hemoglobin (Bld) [Mass/Vol] 12.9 g/dL Low 13.0-17.0 [facility] Comment on above: Order Comment: Speci men Type: BLOOD SPECIMENOrdering Facility: [facility] Address: [address] [place] [address] Performed By: #### 5 7021-8 ####[facility] [place] [id number] [place] [address] [place] Immature granulocytes (Bld) [#/Vol] 10*3/uL Normal <0.10 [facility] Comment on above: Order Comment: Speci men Type: BLOOD SPECIMENOrdering Facility: [facility] Address: [address] [place] [address] Performed By: #### 5 7021-8 ####[facility] [place] [id number] [place] [address] [place] Immature granulocytes/100 WBC (Bld) 1.3 % Normal [facility] Comment on above: Order Comment: Speci men Type: BLOOD SPECIMENOrdering Facility: [facility] Address: [address] [place] [address] Performed By: #### 5 7021-8 ####[facility] [place] [id number] [place] [address] [place] Lymphocytes (Bld) [#/Vol] 0.21 10*3/uL Low 1.00-4.00 [facility] Comment on above: Order Comment: Speci men Type: BLOOD SPECIMENOrdering Facility: [facility] Address: [address] [place] [address] Performed By: #### 5 7021-8 ####[facility] [id number] [place] [address] [place] Lymphocytes/100 WBC (Bld) 13.8 % Normal [facility] Comment on above: Order Comment: Speci men Type: BLOOD SPECIMENOrdering Facility: [facility] Address: [address] [place] [address] Performed By: #### 5 7021-8 ####[facility] [place] [id number] [place] [address] [place] MCH (RBC) [Entitic mass] 33.2 pg Normal 26.0-34.0 [facility] Comment on above: Order Comment: Speci men Type: BLOOD SPECIMENOrdering Facility: [facility] Address: [address] [place] [address] Performed By: #### 5 7021-8 ####[facility] [id number] [place] [address] [place] MCHC (RBC) [Mass/Vol] 35.0 g/dL Normal 30.5-36.0 [facility] Comment on above: Order Comment: Speci men Type: BLOOD SPECIMENOrdering Facility: [facility] Address: [address] [place] [address] Performed By: #### 5 7021-8 ####[facility] [place] [id number] [place] [address] [place] MCV (RBC) [Entitic vol] 95.1 fL Normal 80.0-100.0 [facility] Comment on above: Order Comment: Speci men Type: BLOOD SPECIMENOrdering Facility: [facility] Address: [address] [place] [address] Performed By: #### 5 7021-8 ####[facility] [id number] [place] [address] [place] Monocytes (Bld) [#/Vol] 0.31 10*3/uL Normal <0.87 [facility] Comment on above: Order Comment: Speci men Type: BLOOD SPECIMENOrdering Facility: [facility] Address: [address] [place] [address] Performed By: #### 5 7021-8 ####[facility] [id number] [address] [place] Monocytes/100 WBC (Bld) 20.4 % Normal [facility] Comment on above: Order Comment: Speci men Type: BLOOD SPECIMENOrdering Facility: [facility] Address: [address] [place] [address] Performed By: #### 5 7021-8 ####[facility] [place] [id number] [place] [address] [place] Neutrophils (Bld) [#/Vol] 0.91 10*3/uL Low 1.45-7.50 [facility] Comment on above: Order Comment: Speci men Type: BLOOD SPECIMENOrdering Facility: [facility] Address: [address] [place] [address] Performed By: #### 5 7021-8 ####[facility] [id number] [place] [address] [place] Neutrophils/100 WBC (Bld) 59.9 % Normal [facility] Comment on above: Order Comment: Speci men Type: BLOOD SPECIMENOrdering Facility: [facility] Address: [address] [place] [address] Performed By: #### 5 7021-8 ####[facility] [id number] [place] [address] [place] Nucleated RBC (Bld) [#/Vol] 10*3/uL Normal <0.01 [facility] Comment on above: Order Comment: Speci men Type: BLOOD SPECIMENOrdering Facility: [facility] Address: [address] [place] [address] Performed By: #### 5 7021-8 ####[facility] [place] [id number] [place] [address] [place] Nucleated RBC/100 WBC (Bld) [Ratio] 0.0 /100 WBC Normal [facility] Comment on above: Order Comment: Speci men Type: BLOOD SPECIMENOrdering Facility: [facility] Address: [address] [place] [address] Performed By: #### 5 7021-8 ####[facility] [place] [id number] [place] [address] [place] Platelet mean volume (Bld) [Entitic vol] 9.7 fL Normal 9.0-12.7 [facility] Comment on above: Order Comment: Speci men Type: BLOOD SPECIMENOrdering Facility: [facility] Address: [address] [place] [address] Performed By: #### 5 7021-8 ####[facility] [id number] [place] [address] [place] Platelets (Bld) [#/Vol] 107 10*3/uL Low 150-400 [facility] Comment on above: Order Comment: Speci men Type: BLOOD SPECIMENOrdering Facility: [facility] Address: [address] [place] [address] Performed By: #### 5 7021-8 ####[facility] [place] [id number] [place] [address] [place] RBC (Bld) [#/Vol] 3.88 10*6/uL Low 4.20-6.00 [facility] Comment on above: Order Comment: Speci men Type: BLOOD SPECIMENOrdering Facility: [facility] Address: [address] [place] [address] Performed By: #### 5 7021-8 ####[facility] [id number] [place] [address] [place] WBC (Bld) [#/Vol] 1.52 10*3/uL Low 3.70-11.00 [facility] Comment on above: Order Comment: Speci men Type: BLOOD SPECIMENOrdering Facility: [facility] Address: [address] [place] [address] Result Comment: No c lot detected. Performed By: #### 5 7021-8 ####[facility] [id number] [place] [address] [place] CNOVon 07-11-2024 CNOV Normal [facility] CNOVSPon 05-13-2024 CNOVSP Normal [facility] CRP SerPl-mCncon 05-13-2024 CRP [Mass/Vol] mg/L Normal <0.9 [facility] Comment on above: Order Comment: Speci men Type: BLOOD SPECIMENOrdering Facility: [facility] Address: [address] [place] [address] Performed By: #### 1 988-5, 2276-4 ####[facility] LABCLIA [id number] [place] [id number] [place] CRP [Mass/Vol]on 05-13-2024 Interpretation and review of laboratory results Normal [facility] CYTOMEGALOVIRUS (CMV) DNA, Q UANTITATIVE PCR, PLASMAon 05-13-2024 CMV DNA HARVEY+probe Qn (P) Not detected Normal Not Detected [facility] Comment on above: Order Comment: Speci men Type: BLOOD SPECIMENOrdering Facility: [facility] Address: [address] [place] [address] Performed By: #### C MVQNT ####[facility] LABIA [id number] [place] [address] [place] Comprehensive metabolic 2000 panelon 05-13-2024 Albumin [Mass/Vol] 4.6 g/dL 3.9 - 4.9 g/dL [facility] ALP [Catalytic activity/Vol] 118 U/L High 38 - 113 U/L [facility] ALT [Catalytic activity/Vol] 40 U/L 10 - 54 U/L [facility] Anion gap [Moles/Vol] 11 mmol/L 8 - 15 mmol/L [facility] AST [Catalytic activity/Vol] 27 U/L 14 - 40 U/L [facility] Bilirubin [Mass/Vol] 0.5 mg/dL 0.2 - 1 .3 mg/dL [facility] Calcium [Mass/Vol] 9.6 mg/dL 8.5 - 10. 2 mg/dL [facility] Chloride [Moles/Vol] 106 mmol/L 98 - 10 7 mmol/L [facility] CO2 [Moles/Vol] 24 mmol/L 22 - 30 mmol/L [facility] Creatinine [Mass/Vol] 1.01 mg/dL 0.73 - 1.22 mg/dL [facility] GFR/1.73 sq M.predicted among non-blacks MDRD (S/P/Bld) [Vol rate/Area] 82 mL/min/{1.73_m2} - PINF [facility] Comment on above: Estimated Glomerular Filtration Rate [...] [Mass/Vol] 99 mg/dL 74 - 99 mg/dL [facility] Comment on above: The [place] Diab[employer] Association (ADA) provides guidance for [...] Standards of Medical Care in Diabetes 2016, [place] [employer]. Diabetes Care. 2016.39(Suppl 1). Interpretation and review of laboratory results Abnormal [facility] Potassium [Moles/Vol] 4.6 mmol/L 3.7 - 5.1 mmol/L [facility] Protein [Mass/Vol] 6.8 g/dL 6.3 - 8.0 g/dL [facility] Sodium [Moles/Vol] 141 mmol/L 136 - 144 mmol/L [facility] Urea nitrogen [Mass/Vol] 16 mg/dL 9 - 24 mg/dL [facility] Albumin [Mass/Vol] 4.6 g/dL Normal 3.9-4.9 [facility] Comment on above: Order Comment: Speci men Type: BLOOD SPECIMENOrdering Facility: [facility] Address: [address] [place] [address] Performed By: #### 2 4323-8, 34432-9, 2776-1 ####[facility] [id number] [place] [address] [place] ALP [Catalytic activity/Vol] 118 U/L High 38-113 [facility] Comment on above: Order Comment: Speci men Type: BLOOD SPECIMENOrdering Facility: [facility] Address: [address] [place] [address] Performed By: #### 2 4323-8, 72319-2, 2776- ####[facility] [id number] [place] [address] [place] ALT [Catalytic activity/Vol] 40 U/L Normal 10-54 [facility] Comment on above: Order Comment: Speci men Type: BLOOD SPECIMENOrdering Facility: [facility] Address: [address] [place] [address] Performed By: #### 2 4323-8, , 2776-11 ####[facility] [id number] [place] [address] [place] Anion gap [Moles/Vol] 11 mmol/L Normal 8-15 [facility] Comment on above: Order Comment: Speci men Type: BLOOD SPECIMENOrdering Facility: [facility] Address: [address] [place] [address] Performed By: #### 2 4323-8, 08026-0, 2776- ####[facility] [id number] [place] [address] [place] AST [Catalytic activity/Vol] 27 U/L Normal 14-40 [facility] Comment on above: Order Comment: Speci men Type: BLOOD SPECIMENOrdering Facility: [facility] Address: [address] [place] [address] Performed By: #### 2 4323-8, , 2776-11 ####[facility] [id number] [place] [address] [place] Bilirubin [Mass/Vol] 0.5 mg/dL Normal 0.2-1.3 [facility] Comment on above: Order Comment: Speci men Type: BLOOD SPECIMENOrdering Facility: [facility] Address: [address] [place] [address] Performed By: #### 2 4323-8, , 2776-11 ####[facility] [id number] [place] [address] [place] Calcium [Mass/Vol] 9.6 mg/dL Normal 8.5-10.2 [facility] Comment on above: Order Comment: Speci men Type: BLOOD SPECIMENOrdering Facility: [facility] Address: [address] [place] [address] Performed By: #### 2 432-8, , 2776-11 ####[facility] [id number] [place] [address] [place] Chloride [Moles/Vol] 106 mmol/L Normal 98-107 [facility] Comment on above: Order Comment: Speci men Type: BLOOD SPECIMENOrdering Facility: [facility] Address: [address] [place] [address] Performed By: #### 2 4323-8, , 2776-11 ####[facility] [id number] [place] [id number] [place] CO2 [Moles/Vol] 24 mmol/L Normal 22-30 [facility] Comment on above: Order Comment: Speci men Type: BLOOD SPECIMENOrdering Facility: [facility] Address: [address] [place] [address] Performed By: #### 2 4323-8, , 2776-11 ####[facility] [id number] [place] [address] [place] Creatinine [Mass/Vol] 1.01 mg/dL Normal 0.73-1.22 [facility] Comment on above: Order Comment: Sara randle Type: BLOOD SPECIMENOrdering Facility: [facility] Address: [address] [place] [address] Performed By: #### 2 4323-8, 16287-0, 2776-11 ####[facility] [id number] [place] [address] [place] Creatinine and Glomerular filtration rate.predicted panel (S/P/Bld) 82 mL/min/1.73m??? Normal >=60 [facility] Comment on above: Order Comment: Sara randle Type: BLOOD SPECIMENOrdering Facility: [facility] Address: [address] [place] [address] Result Comment: Carol mated Glomerular Filtration Rate [...] actual GFR. Performed By: #### 2 4323-8, 29950-3, 2776-11 ####[facility] [id number] [place] [address] [place] Glucose [Mass/Vol] 99 mg/dL Normal 74-99 [facility] Comment on above: Order Comment: Speci razia Type: BLOOD SPECIMENOrdering Facility: [facility] Address: [address] [place] [address] Result Comment: The [place] [employer] (ADA) provides guidance for cutoff [...] Standards of Medical Care in Diabetes 2016, [place] [employer]. Diabetes Care. 2016.39(Suppl 1). Performed By: #### 2 4323-8, , 2776-11 ####[facility] [id number] [place] [address] [place] Potassium [Moles/Vol] 4.6 mmol/L Normal 3.7-5.1 [facility] Comment on above: Order Comment: Sara randle Type: BLOOD SPECIMENOrdering Facility: [facility] Address: [address] [place] [address] Performed By: #### 2 4323-8, , 2776-11 ####[facility] [id number] [place] [address] [place] Protein [Mass/Vol] 6.8 g/dL Normal 6.3-8.0 [facility] Comment on above: Order Comment: Sara randle Type: BLOOD SPECIMENOrdering Facility: [facility] Address: [address] [place] [address] Performed By: #### 2 4323-8, , 2776-11 ####[facility] [id number] [place] [address] [place] Sodium [Moles/Vol] 141 mmol/L Normal 136-144 [facility] Comment on above: Order Comment: Sara randle Type: BLOOD SPECIMENOrdering Facility: [facility] Address: [address] [place] [address] Performed By: #### 2 4323-8, , 2776-11 ####[facility] [id number] [address] [id number] [address] [place] Urea nitrogen [Mass/Vol] 16 mg/dL Normal 9-24 [facility] Comment on above: Order Comment: Speci men Type: BLOOD SPECIMENOrdering Facility: [facility] Address: [address] [place] [address] Performed By: #### 2 4323-8, 68444-0, 2777-1 ####[facility] [id number] [place] [address] [place] FERRITINon 05-13-2024 Ferritin [Mass/Vol] 584.0 ng/mL High 30.3 - 565.7 ng/mL [facility] Ferritin SerPl-mCncon 2023 Ferritin [Mass/Vol] 584.0 ng/mL High 30.3-565.7 [facility] Comment on above: Order Comment: Speci men Type: BLOOD SPECIMENOrdering Facility: [facility] Address: [address] [place] [address] Performed By: #### 1 988-5, 2276-4 ####[facility] LABIA [id number] [place] [address] [place] Ferritin [Mass/Vol]on 2023 Interpretation and review of laboratory results Abnormal [facility] IMMUNOGLOBULINS,IGG,IGA,IGMo n 05-13-2024 IgA [Mass/Vol] 27 mg/dL Low 70-400 [facility] Comment on above: Order Comment: Speci men Type: BLOOD SPECIMENOrdering Facility: [facility] Address: [address] [place] [address] Performed By: #### S ERIMM ####[facility]GIFF[facility] [id number] [place] [address] [place] IgG [Mass/Vol] 821 mg/dL Normal 700-1600 [facility] Comment on above: Order Comment: Speci men Type: BLOOD SPECIMENOrdering Facility: [facility] Address: [address] [place] [address] Performed By: #### S ERIMM ####[facility] LABCLIA [id number] [place] [address] [place] IgM [Mass/Vol] 9 mg/dL Low 40-230 [facility] Comment on above: Order Comment: Speci men Type: BLOOD SPECIMENOrdering Facility: [facility] Address: [address] [place] [address] Performed By: #### S ERIMM ####[facility] LABCLIA [id number] [place] [address] [place] Immunodeficiency panel FC (B ld)on 05-13-2024 CD3 cells (Bld) [#/Vol] 134 cells/uL Low 308-1100 [facility] Comment on above: Order Comment: Speci men Type: BLOOD SPECIMENOrdering Facility: [facility] Address: [address] [place] [address] Performed By: #### 4 5268-0 ####[facility] LABIA [id number] [place] [address] [place] CD3 cells/100 cells (Bld) 49 % Low 60-89 [facility] Comment on above: Order Comment: Speci men Type: BLOOD SPECIMENOrdering Facility: [facility] Address: [address] [place] [address] Performed By: #### 4 5268-0 ####[facility] LABIA [id number] [place] [address] [place] CD3+CD4+ (T4 helper) cells (Bld) [#/Vol] 35 cells/uL Low 533-5784 [facility] Comment on above: Order Comment: Speci men Type: BLOOD SPECIMENOrdering Facility: [facility] Address: [address] [place] [address] Performed By: #### 4 5268-0 ####[facility] LABIA [id number] [address] [id number], [place] [address] [place] CD3+CD4+ (T4 helper) cells/100 cells (Bld) 13 % Low 34-61 [facility] Comment on above: Order Comment: Speci men Type: BLOOD SPECIMENOrdering Facility: [facility] Address: [address] [place] [address] Performed By: #### 4 5268-0 ####[facility] LABCLIA [id number] [place] [address] [place] CD3+CD4+ (T4 helper) cells/CD3+CD8+ (T8 suppressor cells) cells (Bld) [# ratio] 0.35 % Low 1.10-3.25 [facility] Comment on above: Order Comment: Speci men Type: BLOOD SPECIMENOrdering Facility: [facility] Address: [address] [place] [address] Performed By: #### 4 5268-0 ####[facility] LABIA [id number] [place] [address] [place] CD3+CD8+ (T8 suppressor cells) cells (Bld) [#/Vol] 100 cells/uL Low 175-958 [facility] Comment on above: Order Comment: Speci men Type: BLOOD SPECIMENOrdering Facility: [facility] Address: [address] [place] [address] Performed By: #### 4 5268-0 ####[facility] LABIA [id number] [place] [address] [place] CD3+CD8+ (T8 suppressor cells) cells/100 cells (Bld) 37 % Normal 10-41 [facility] Comment on above: Order Comment: Speci men Type: BLOOD SPECIMENOrdering Facility: [facility] Address: [address] [place] [address] Performed By: #### 4 5268-0 ####[facility] LABCLIA [id number] [place] [address] [place] CD3-CD16+CD56+ (Natural killer) cells (Bld) [#/Vol] 127 cells/uL Normal 102-565 [facility] Comment on above: Order Comment: Speci men Type: BLOOD SPECIMENOrdering Facility: [facility] Address: [address] [place] [address] Performed By: #### 4 5268-0 ####[facility] LABCLIA [id number] [place] [address] [place] CD3-CD16+CD56+ (Natural killer) cells/100 cells (Bld) 47 % High 5-25 [facility] Comment on above: Order Comment: Speci men Type: BLOOD SPECIMENOrdering Facility: [facility] Address: [address] [place] [address] Performed By: #### 4 5268-0 ####[facility] LABIA [id number] [place] [address] [place] CD3-CD19+ cells (Bld) [#/Vol] 2 cells/uL Low 75-660 [facility] Comment on above: Order Comment: Speci men Type: BLOOD SPECIMENOrdering Facility: [facility] Address: [address] [place] [address] Performed By: #### 4 5268-0 ####[facility] LABIA [id number] [place] [address] [place] CD3-CD19+ cells/100 cells (Bld) 1 % Low 5-22 [facility] Comment on above: Order Comment: Speci men Type: BLOOD SPECIMENOrdering Facility: [facility] Address: [address] [place] [address] Performed By: #### 4 5268-0 ####[facility] LABIA [id number] [place] [address] [place] LACTATE DEHYDROGENASEon 07- LDH [Catalytic activity/Vol] 289 U/L High 135 - 225 U/L [facility] Comment on above: Hemolysis present. T he [...] LDH [Catalytic activity/Vol] 289 U/L High 135-225 [facility] Comment on above: Order Comment: Sara randle Type: BLOOD SPECIMENOrdering Facility: [facility] Address: [address] [place] [address] Result Comment: Hemo lysis present. The origin [...] indicated. Performed By: #### 2 532-0 ####[facility] [place] [id number] [address] [place] LDH [Catalytic activity/Vol] on 05-13-2024 Interpretation and review of laboratory results Abnormal [facility] MAGNESIUMon 05-13-2024 Magnesium [Mass/Vol] 2.1 mg/dL 1.7 - 2 .3 mg/dL [facility] Magnesium SerPl-mCncon 05-13 Magnesium [Mass/Vol] 2.1 mg/dL Normal 1.7-2.3 [facility] Comment on above: Order Comment: Sara randle Type: BLOOD SPECIMENOrdering Facility: [facility] Address: [address] [place] [address] Performed By: #### 2 4323-8, 67995-2, 2777-1 ####[facility] [place] [id number] [address] [place] No Panel Informationon 05-13 Interpretation and review of laboratory results Normal [facility] PHOSPHORUS INORGANICon 05-13 Phosphate [Mass/Vol] 4.1 mg/dL 2.7 - 4 .8 mg/dL [facility] Phosphate SerPl-mCncon 05-13 Phosphate [Mass/Vol] 4.1 mg/dL Normal 2.7-4.8 [facility] Comment on above: Order Comment: Speci men Type: BLOOD SPECIMENOrdering Facility: [facility] Address: [address] [place] [address] Performed By: #### 2 4323-8, 01134-3, 2777-1 ####[facility] [id number] [facility] [id number], [place] [address] [place] PET+CT Guidance for [...] any questions regarding this interpretation, please call [phone]. If you are unable to reach us at the number above, please feel free to contact [facility] eRadiology at [phone]. DIVISION OF RADIOLOGY * * *Final Report* [...] * Radiopharmaceutical Activity: 10.1 mCi * Radiopharmaceutical: Z34-Etgjpmowktdcdetqll (FDG) * All reported standardized uptake values represent maximum SUV (SUVmax) per body weight, unless otherwise specified. COMPARISON: PET/CT 03/25/2024 RESULT: REFERENCES: SUV reference values: * Blood pool (descending aorta) activity: SUVmax 2.7 * Background liver activity: SUVmax 3.7 Remote Sensing Scientist (topogram) images: No additional findings. Notes and [...] No abnormal uptake. DIVISION OF RADIOLOGY Provider, [facility] - 05/11/2024 * * *Final Report* * [...] * Radiopharmaceutical Activity: 10.1 mCi * Radiopharmaceutical: K22-Lhkimvztvyjnwfwwgo (FDG) * All reported standardized uptake values represent maximum SUV (SUVmax) per body weight, unless otherwise specified. COMPARISON: PET/CT 03/25/2024 RESULT: REFERENCES: SUV reference values: * Blood pool (descending aorta) activity: SUVmax 2.7 * Background liver activity: SUVmax 3.7 Remote Sensing Scientist (topogram) images: No additional findings. Notes and [...] any questions regarding this interpretation, please call [phone]. If you are unable to reach us at the number abov (more content not included)... [facility] PET+CT Guidance for localiza tion of tumor of Skull base to mid-thigh-- W 18F-FDG IVOrdered By: Ccf Provider on 05-11-2024 [facility] GLUCOSE, BLOOD (POC)on 05-07 Glucose [Mass/Vol] 95 mg/dL 74 - 99 mg/dL [facility] Comment on above: Location:[facility], [address] [place] [address] , [place], [place], [facility] The Accu-Chek Inform II glucose meter has [...] blood gas instrument) in the above situations. [facility] NM PET/CT SKULL-THIGH SUBQon 05-07-2024 NM PET/CT SKULL-THIGH SUBQ Normal [facility] PET+CT Guidance for localiza tion of tumor of Skull base to mid-thigh-- W 18F-FDG Bella 05-07-2024 Radiology Study observation (narrative) [facility] CBC W Auto Differential pane l (Bld)on 05-03-2024 Anisocytosis Ql (Bld) Present Normal [facility] Comment on above: Order Comment: Speci men Type: BLOOD SPECIMENOrdering Facility: [facility] Address: [address] [place] [address] Performed By: #### 5 7021-8 ####[facility] LABCLIA [id number] [address] LABCLIA [id number] [place] [address] [place] Basophils (Bld) [#/Vol] 0.02 10*3/uL Normal <0.11 [facility] Comment on above: Order Comment: Speci men Type: BLOOD SPECIMENOrdering Facility: [facility] Address: [address] [place] [address] Performed By: #### 5 7021-8 ####[facility] LABCLIA [id number] [address] LABCLIA [id number] [place] [address] [place] Basophils/100 WBC (Bld) 1.3 % Normal [facility] Comment on above: Order Comment: Speci men Type: BLOOD SPECIMENOrdering Facility: [facility] Address: [address] [place] [address] Performed By: #### 5 7021-8 ####[facility] LABCLIA [id number] [address] LABCLIA [id number] [place] [address] [place] Differential cell count method Nom (Bld) Manual Normal [facility] Comment on above: Order Comment: Speci men Type: BLOOD SPECIMENOrdering Facility: [facility] Address: [address] [place] [address] Performed By: #### 5 7021-8 ####[facility] LABCLIA [id number] [address] LABCLIA [id number] [place] [address] [place] Eosinophils (Bld) [#/Vol] 0.03 10*3/uL Normal <0.46 [facility] Comment on above: Order Comment: Speci men Type: BLOOD SPECIMENOrdering Facility: [facility] Address: [address] [place] [address] Performed By: #### 5 7021-8 ####[facility] LABCLIA [id number] [address] LABCLIA [id number] [place] [address] [place] Eosinophils/100 WBC (Bld) 1.7 % Normal [facility] Comment on above: Order Comment: Speci men Type: BLOOD SPECIMENOrdering Facility: [facility] Address: [address] [place] [address] Performed By: #### 5 7021-8 ####[facility] LABCLIA [id number] [place] [id number] LABCLIA [id number] [place] [address] [place] Erythrocyte distribution width (RBC) [Ratio] 19.4 % High 11.5-15.0 [facility] Comment on above: Order Comment: Speci men Type: BLOOD SPECIMENOrdering Facility: [facility] Address: [address] [place] [address] Performed By: #### 5 7021-8 ####[facility] LABCLIA [id number] [address] LABCLIA [id number] [place] [address] [place] Hematocrit (Bld) [Volume fraction] 39.0 % Normal 39.0-51.0 [facility] Comment on above: Order Comment: Speci men Type: BLOOD SPECIMENOrdering Facility: [facility] Address: [address] [place] [address] Performed By: #### 5 7021-8 ####[facility] LABCLIA [id number] [address] LABCLIA [id number] [place] [address] [place] Hemoglobin (Bld) [Mass/Vol] 13.1 g/dL Normal 13.0-17.0 [facility] Comment on above: Order Comment: Speci men Type: BLOOD SPECIMENOrdering Facility: [facility] Address: [address] [place] [address] Performed By: #### 5 7021-8 ####[facility] LABCLIA [id number] [address] LABCLIA [id number] [place] [address] [place] Lymphocytes (Bld) [#/Vol] 0.33 10*3/uL Low 1.00-4.00 [facility] Comment on above: Order Comment: Speci men Type: BLOOD SPECIMENOrdering Facility: [facility] Address: [address] [place] [address] Performed By: #### 5 7021-8 ####[facility] LABCLIA [id number] [address] LABCLIA [id number] [place] [address] [place] Lymphocytes/100 WBC (Bld) 19.9 % Normal [facility] Comment on above: Order Comment: Speci men Type: BLOOD SPECIMENOrdering Facility: [facility] Address: [address] [place] [address] Performed By: #### 5 7021-8 ####[facility] LABCLIA [id number] [address] LABCLIA [id number] [place] [address] [place] MCH (RBC) [Entitic mass] 32.3 pg Normal 26.0-34.0 [facility] Comment on above: Order Comment: Speci men Type: BLOOD SPECIMENOrdering Facility: [facility] Address: [address] [place] [address] Performed By: #### 5 7021-8 ####[facility] LABCLIA [id number] [address] LABCLIA [id number] [place] [address] [place] MCHC (RBC) [Mass/Vol] 33.6 g/dL Normal 30.5-36.0 [facility] Comment on above: Order Comment: Speci men Type: BLOOD SPECIMENOrdering Facility: [facility] Address: [address] [place] [address] Performed By: #### 5 7021-8 ####[facility] LABCLIA [id number] [address] LABCLIA [id number] [place] [address] [place] MCV (RBC) [Entitic vol] 96.3 fL Normal 80.0-100.0 [facility] Comment on above: Order Comment: Speci men Type: BLOOD SPECIMENOrdering Facility: [facility] Address: [address] [place] [address] Performed By: #### 5 7021-8 ####[facility] LABCLIA [id number] [address] LABCLIA [id number] [place] [address] [place] Monocytes (Bld) [#/Vol] 0.28 10*3/uL Normal <0.87 [facility] Comment on above: Order Comment: Speci men Type: BLOOD SPECIMENOrdering Facility: [facility] Address: [address] [place] [address] Performed By: #### 5 7021-8 ####[facility] LABCLIA [id number] [address] LABCLIA [id number] [place] [address] [place] Monocytes/100 WBC (Bld) 16.9 % Normal [facility] Comment on above: Order Comment: Speci men Type: BLOOD SPECIMENOrdering Facility: [facility] Address: [address] [place] [address] Performed By: #### 5 7021-8 ####[facility] LABCLIA [id number] [address] LABCLIA [id number] [place] [address] [place] Neutrophils (Bld) [#/Vol] 0.99 10*3/uL Low 1.45-7.50 [facility] Comment on above: Order Comment: Speci men Type: BLOOD SPECIMENOrdering Facility: [facility] Address: [address] [place] [address] Performed By: #### 5 7021-8 ####[facility] LABCLIA [id number] [address] LABCLIA [id number] [place] [address] [place] Neutrophils/100 WBC (Bld) 60.2 % Normal [facility] Comment on above: Order Comment: Speci men Type: BLOOD SPECIMENOrdering Facility: [facility] Address: [address] [place] [address] Performed By: #### 5 7021-8 ####[facility] LABCLIA [id number] [address] LABCLIA [id number] [place] [address] [place] Nucleated RBC (Bld) [#/Vol] 10*3/uL Normal <0.01 [facility] Comment on above: Order Comment: Speci men Type: BLOOD SPECIMENOrdering Facility: [facility] Address: [address] [place] [address] Performed By: #### 5 7021-8 ####[facility] LABCLIA [id number] [address] LABCLIA [id number] [place] [address] [place] Nucleated RBC/100 WBC (Bld) [Ratio] 0.0 /100 WBC Normal [facility] Comment on above: Order Comment: Speci men Type: BLOOD SPECIMENOrdering Facility: [facility] Address: [address] [place] [address] Performed By: #### 5 7021-8 ####[facility] LABCLIA [id number] [address] LABCLIA [id number] [place] [address] [place] Ovalocytes LM Ql (Bld) Few Normal [facility] Comment on above: Order Comment: Speci men Type: BLOOD SPECIMENOrdering Facility: [facility] Address: [address] [place] [address] Performed By: #### 5 7021-8 ####[facility] LABCLIA [id number] [address] LABCLIA [id number] [place] [address] [place] Platelet mean volume (Bld) [Entitic vol] 9.8 fL Normal 9.0-12.7 [facility] Comment on above: Order Comment: Speci men Type: BLOOD SPECIMENOrdering Facility: [facility] Address: [address] [place] [address] Performed By: #### 5 7021-8 ####[facility] LABCLIA [id number] [address] LABCLIA [id number] [place] [address] [place] Platelets (Bld) [#/Vol] 82 10*3/uL Low 150-400 [facility] Comment on above: Order Comment: Speci men Type: BLOOD SPECIMENOrdering Facility: [facility] Address: [address] [place] [address] Result Comment: No c lot detected. Performed By: #### 5 7021-8 ####[facility] LABCLIA [id number] [address] LABCLIA [id number] [place] [address] [place] Platelets Estimate (Bld) [#/Vol] Decreased Normal [facility] Comment on above: Order Comment: Speci men Type: BLOOD SPECIMENOrdering Facility: [facility] Address: [address] [place] [address] Performed By: #### 5 7021-8 ####[facility] LABCLIA [id number] [address] LABCLIA [id number] [place] [address] [place] Polychromasia LM Ql (Bld) Slight Normal [facility] Comment on above: Order Comment: Speci men Type: BLOOD SPECIMENOrdering Facility: [facility] Address: [address] [place] [address] Performed By: #### 5 7021-8 ####[facility] LABCLIA [id number] [place] [id number] LABCLIA [id number] [place] [address] [place] RBC (Bld) [#/Vol] 4.05 10*6/uL Low 4.20-6.00 [facility] Comment on above: Order Comment: Speci men Type: BLOOD SPECIMENOrdering Facility: [facility] Address: [address] [place] [address] Performed By: #### 5 7021-8 ####[facility] LABCLIA [id number] [address] LABCLIA [id number] [place] [address] [place] RED CELL MORPH Reviewed: see result s of individual morphologies Normal [facility] Comment on above: Order Comment: Speci men Type: BLOOD SPECIMENOrdering Facility: [facility] Address: [address] [place] [address] Performed By: #### 5 7021-8 ####[facility] LABCLIA [id number] [address] LABCLIA [id number] [place] [address] [place] WBC (Bld) [#/Vol] 1.64 10*3/uL Low 3.70-11.00 [facility] Comment on above: Order Comment: Speci men Type: BLOOD SPECIMENOrdering Facility: [facility] Address: [address] [place] [address] Result Comment: No c lot detected. Performed By: #### 5 7021-8 ####[facility] LABCLIA [id number] [address] LABCLIA [id number] [place] [address] [place] CNPNon 05-03-2024 CNPN Normal [facility] Comprehensive metabolic 2000 panelon 05-03-2024 Albumin [Mass/Vol] 4.4 g/dL Normal 3.9-4.9 [facility] Comment on above: Order Comment: Speci men Type: BLOOD SPECIMENOrdering Facility: [facility] Address: [address] [place] [address] Performed By: #### 1 9123-9, 52236-2 ####[facility] LABCLIA [id number] [place] [address] ALP [Catalytic activity/Vol] 146 U/L High 38-113 [facility] Comment on above: Order Comment: Speci men Type: BLOOD SPECIMENOrdering Facility: [facility] Address: [address] [place] [address] Performed By: #### 1 9123-9, 29320-6 ####[facility] LABCLIA [id number] [place] [address] ALT [Catalytic activity/Vol] 37 U/L Normal 10-54 [facility] Comment on above: Order Comment: Speci men Type: BLOOD SPECIMENOrdering Facility: [facility] Address: [address] [place] [address] Performed By: #### 1 9123-9, 64071-7 ####[facility] LABCLIA [id number] [place] [address] Anion gap [Moles/Vol] 11 mmol/L Normal 8-15 [facility] Comment on above: Order Comment: Speci men Type: BLOOD SPECIMENOrdering Facility: [facility] Address: [address] [place] [address] Performed By: #### 1 9123-9, 02752-3 ####[facility] LABCLIA [id number] [place] [address] AST [Catalytic activity/Vol] 23 U/L Normal 14-40 [facility] Comment on above: Order Comment: Speci men Type: BLOOD SPECIMENOrdering Facility: [facility] Address: [address] [place] [address] Performed By: #### 1 9123-9, 00753-6 ####[facility] LABCLIA [id number] [place] [address] Bilirubin [Mass/Vol] 0.3 mg/dL Normal 0.2-1.3 [facility] Comment on above: Order Comment: Speci men Type: BLOOD SPECIMENOrdering Facility: [facility] Address: [address] [place] [address] Performed By: #### 1 9123-9, 23955-0 ####[facility] LABCLIA [id number] [place] [address] Calcium [Mass/Vol] 9.8 mg/dL Normal 8.5-10.2 [facility] Comment on above: Order Comment: Speci men Type: BLOOD SPECIMENOrdering Facility: [facility] Address: [address] [place] [address] Performed By: #### 1 9123-9, 53279-4 ####[facility] LABIA [id number] [place] [address] Chloride [Moles/Vol] 108 mmol/L High 98-107 [facility] Comment on above: Order Comment: Speci men Type: BLOOD SPECIMENOrdering Facility: [facility] Address: [address] [place] [address] Performed By: #### 1 9123-9, 08775-6 ####[facility] LABCLIA [id number] [place] [address] CO2 [Moles/Vol] 24 mmol/L Normal 22-30 [facility] Comment on above: Order Comment: Speci men Type: BLOOD SPECIMENOrdering Facility: [facility] Address: [address] [place], [place] [address] Performed By: #### 1 9123-9, 97522-3 ####[facility] LABCLIA [id number] [place] [address] Creatinine [Mass/Vol] 1.11 mg/dL Normal 0.73-1.22 [facility] Comment on above: Order Comment: Sara randle Type: BLOOD SPECIMENOrdering Facility: [facility] Address: [address] [place] [address] Performed By: #### 1 9123-9, 33878-7 ####[facility] LABCLIA [id number] [place] [address] Creatinine and Glomerular filtration rate.predicted panel (S/P/Bld) 73 mL/min/1.73m??? Normal >=60 [facility] Comment on above: Order Comment: Sara randle Type: BLOOD SPECIMENOrdering Facility: [facility] Address: [address] [place] [address] Result Comment: Carol mated Glomerular Filtration Rate [...] actual GFR. Performed By: #### 1 9123-9, 32814-7 ####[facility] LABCLIA [id number] [place] [address] Glucose [Mass/Vol] 114 mg/dL High 74-99 [facility] Comment on above: Order Comment: Sara randle Type: BLOOD SPECIMENOrdering Facility: [facility] Address: [address] [place] [address] Result Comment: The [place] [employer] (ADA) provides guidance for cutoff [...] Standards of Medical Care in Diabetes 2016, [place] [employer]. Diabetes Care. 2016.39(Suppl 1). Performed By: #### 1 9123-9, ####[facility] LABCLIA [id number] [place] [address] Potassium [Moles/Vol] 4.6 mmol/L Normal 3.7-5.1 [facility] Comment on above: Order Comment: Speci men Type: BLOOD SPECIMENOrdering Facility: [facility] Address: [address] [place] [address] Performed By: #### 1 239, ####[facility] LABIA [id number] [place] [address] Protein [Mass/Vol] 6.6 g/dL Normal 6.3-8.0 [facility] Comment on above: Order Comment: Speci men Type: BLOOD SPECIMENOrdering Facility: [facility] Address: [address] [place], [place] [address] Performed By: #### 1 239, ####[facility] LABIA [id number] [place] [address] Sodium [Moles/Vol] 143 mmol/L Normal 136-144 [facility] Comment on above: Order Comment: Speci men Type: BLOOD SPECIMENOrdering Facility: [facility] Address: [address] [place] [address] Performed By: #### 1 23-9, ####[facility] LABIA [id number] [place] [address] Urea nitrogen [Mass/Vol] 16 mg/dL Normal 9-24 [facility] Comment on above: Order Comment: Speci men Type: BLOOD SPECIMENOrdering Facility: [facility] Address: [address] [place] [address] Performed By: #### 1 9123-9, 48555-5 ####[facility] LABCLIA [id number] [place] [address] Magnesium SerPl-mCncon 05-03 Magnesium [Mass/Vol] 2.2 mg/dL Normal 1.7-2.3 [facility] Comment on above: Order Comment: Speci men Type: BLOOD SPECIMENOrdering Facility: [facility] Address: [address] [place] [address] Performed By: #### 1 9123-9, 05056-4 ####[facility] LABCLIA [id number] [place] [address] CNPNon 04-30-2024 CNPN Normal [facility] C-REACTIVE PROTEINon 024 CRP [Mass/Vol] mg/dL NINF - 0.9 mg/dL [facility] CBC W Auto Differential pane l (Bld)on 04-23-2024 Anisocytosis Ql (Bld) Present Normal [facility] Comment on above: Order Comment: Speci men Type: BLOOD SPECIMENOrdering Facility: [facility] Address: [address] [place] [address] Performed By: #### 5 7021-8 ####[facility] [id number] [place] [address] [place] Basophils (Bld) [#/Vol] 0.02 10*3/uL Normal <0.11 [facility] Comment on above: Order Comment: Speci men Type: BLOOD SPECIMENOrdering Facility: [facility] Address: [address] [place] [address] Performed By: #### 5 7021-8 ####[facility] [id number] [place] [address] [place] Basophils/100 WBC (Bld) 1.0 % Normal [facility] Comment on above: Order Comment: Speci men Type: BLOOD SPECIMENOrdering Facility: [facility] Address: [address] [place] [address] Performed By: #### 5 7021-8 ####[facility] [place] [place] [id number] [place] [address] [place] Differential cell count method Nom (Bld) Manual Normal [facility] Comment on above: Order Comment: Speci men Type: BLOOD SPECIMENOrdering Facility: [facility] Address: [address] [place] [address] Performed By: #### 5 7021-8 ####[facility] [id number] [place] [address] [place] Eosinophils (Bld) [#/Vol] 0.02 10*3/uL Normal <0.46 [facility] Comment on above: Order Comment: Speci men Type: BLOOD SPECIMENOrdering Facility: [facility] Address: [address] [place] [address] Performed By: #### 5 7021-8 ####[facility] [id number] [place] [address] [place] Eosinophils/100 WBC (Bld) 1.0 % Normal [facility] Comment on above: Order Comment: Speci men Type: BLOOD SPECIMENOrdering Facility: [facility] Address: [address] [place] [address] Performed By: #### 5 7021-8 ####[facility] [id number] [place] [address] [place] Erythrocyte distribution width (RBC) [Ratio] 17.1 % High 11.5-15.0 [facility] Comment on above: Order Comment: Speci men Type: BLOOD SPECIMENOrdering Facility: [facility] Address: [address] [place] [address] Performed By: #### 5 7021-8 ####[facility] [id number] [place] [address] [place] Hematocrit (Bld) [Volume fraction] 33.5 % Low 39.0-51.0 [facility] Comment on above: Order Comment: Speci men Type: BLOOD SPECIMENOrdering Facility: [facility] Address: [address] [place] [address] Performed By: #### 5 7021-8 ####[facility] [id number] [place] [address] [place] Hemoglobin (Bld) [Mass/Vol] 11.7 g/dL Low 13.0-17.0 [facility] Comment on above: Order Comment: Speci men Type: BLOOD SPECIMENOrdering Facility: [facility] Address: [address] [place] [address] Performed By: #### 5 7021-8 ####[facility] [id number] [place] [address] [place] Lymphocytes (Bld) [#/Vol] 0.23 10*3/uL Low 1.00-4.00 [facility] Comment on above: Order Comment: Speci men Type: BLOOD SPECIMENOrdering Facility: [facility] Address: [address] [place] [address] Performed By: #### 5 7021-8 ####[facility] [id number] [place] [address] [place] Lymphocytes/100 WBC (Bld) 12.0 % Normal [facility] Comment on above: Order Comment: Speci men Type: BLOOD SPECIMENOrdering Facility: [facility] Address: [address] [place] [address] Performed By: #### 5 7021-8 ####[facility] [id number] [place] [address] [place] MCH (RBC) [Entitic mass] 31.8 pg Normal 26.0-34.0 [facility] Comment on above: Order Comment: Speci men Type: BLOOD SPECIMENOrdering Facility: [facility] Address: [address] [place] [address] Performed By: #### 5 7021-8 ####[facility] [id number] [place] [address] [place] MCHC (RBC) [Mass/Vol] 34.9 g/dL Normal 30.5-36.0 [facility] Comment on above: Order Comment: Speci men Type: BLOOD SPECIMENOrdering Facility: [facility] Address: [address] [place] [address] Performed By: #### 5 7021-8 ####[facility] [id number] [place] [address] [place] MCV (RBC) [Entitic vol] 91.0 fL Normal 80.0-100.0 [facility] Comment on above: Order Comment: Speci men Type: BLOOD SPECIMENOrdering Facility: [facility] Address: [address] [place] [address] Performed By: #### 5 7021-8 ####[facility] [id number] [place] [address] [place] Monocytes (Bld) [#/Vol] 0.33 10*3/uL Normal <0.87 [facility] Comment on above: Order Comment: Speci men Type: BLOOD SPECIMENOrdering Facility: [facility] Address: [address] [place] [address] Performed By: #### 5 7021-8 ####[facility] [id number] [place] [address] [place] Monocytes/100 WBC (Bld) 17.0 % Normal [facility] Comment on above: Order Comment: Speci men Type: BLOOD SPECIMENOrdering Facility: [facility] Address: [address] [place] [address] Performed By: #### 5 7021-8 ####[facility] [id number] [place] [address] [place] Neutrophils (Bld) [#/Vol] 1.34 10*3/uL Low 1.45-7.50 [facility] Comment on above: Order Comment: Speci men Type: BLOOD SPECIMENOrdering Facility: [facility] Address: [address] [place] [address] Performed By: #### 5 7021-8 ####[facility] [id number] [place] [address] [place] Neutrophils/100 WBC (Bld) 69.0 % Normal [facility] Comment on above: Order Comment: Speci men Type: BLOOD SPECIMENOrdering Facility: [facility] Address: [address] [place] [address] Performed By: #### 5 7021-8 ####[facility] [id number] [place] [address] [place] Nucleated RBC (Bld) [#/Vol] 10*3/uL Normal <0.01 [facility] Comment on above: Order Comment: Speci men Type: BLOOD SPECIMENOrdering Facility: [facility] Address: [address] [place] [address] Performed By: #### 5 7021-8 ####[facility] [id number] [place] [address] [place] Nucleated RBC/100 WBC (Bld) [Ratio] 0.0 /100 WBC Normal [facility] Comment on above: Order Comment: Speci men Type: BLOOD SPECIMENOrdering Facility: [facility] Address: [address] [place] [address] Performed By: #### 5 7021-8 ####[facility] [id number] [place] [address] [place] Ovalocytes LM Ql (Bld) Few Normal [facility] Comment on above: Order Comment: Speci men Type: BLOOD SPECIMENOrdering Facility: [facility] Address: [address] [place] [address] Performed By: #### 5 7021-8 ####[facility] [id number] [place] [address] [place] Platelet mean volume (Bld) [Entitic vol] 10.6 fL Normal 9.0-12.7 [facility] Comment on above: Order Comment: Speci men Type: BLOOD SPECIMENOrdering Facility: [facility] Address: [address] [place] [address] Performed By: #### 5 7021-8 ####[facility] [id number] [place] [address] [place] Platelets (Bld) [#/Vol] 77 10*3/uL Low 150-400 [facility] Comment on above: Order Comment: Speci men Type: BLOOD SPECIMENOrdering Facility: [facility] Address: [address] [place] [address] Performed By: #### 5 7021-8 ####[facility] [id number] [place] [address] [place] Platelets Estimate (Bld) [#/Vol] Decreased Normal [facility] Comment on above: Order Comment: Speci men Type: BLOOD SPECIMENOrdering Facility: [facility] Address: [address] [place] [address] Performed By: #### 5 7021-8 ####[facility] [id number] [place] [address] [place] Polychromasia LM Ql (Bld) Slight Normal [facility] Comment on above: Order Comment: Speci men Type: BLOOD SPECIMENOrdering Facility: [facility] Address: [address] [place] [address] Performed By: #### 5 7021-8 ####[facility] [id number] [place] [address] [place] RBC (Bld) [#/Vol] 3.68 10*6/uL Low 4.20-6.00 [facility] Comment on above: Order Comment: Speci men Type: BLOOD SPECIMENOrdering Facility: [facility] Address: [address] [place] [address] Performed By: #### 5 7021-8 ####[facility] [id number] [place] [address] [place] RED CELL MORPH Reviewed: see result s of individual morphologies Normal [facility] Comment on above: Order Comment: Speci men Type: BLOOD SPECIMENOrdering Facility: [facility] Address: [address] [place] [address] Performed By: #### 5 7021-8 ####[facility] [id number] [place] [address] [place] WBC (Bld) [#/Vol] 1.94 10*3/uL Low 3.70-11.00 [facility] Comment on above: Order Comment: Speci men Type: BLOOD SPECIMENOrdering Facility: [facility] Address: [address] [place] [address] Result Comment: No c lot detected. Performed By: #### 5 7021-8 ####[facility] [id number] [place] [address] [place] CNOVSPon 04-23-2024 CNOVSP Normal [facility] CRP SerPl-mCncon 04-23-2024 CRP [Mass/Vol] mg/L Normal <0.9 [facility] Comment on above: Order Comment: Speci men Type: BLOOD SPECIMENOrdering Facility: [facility] Address: [address] [place] [address] Performed By: #### 1 988-5, 2276-4 ####[facility] [id number] [place] [address] [place] CRP [Mass/Vol]on 04-23-2024 Interpretation and review of laboratory results Normal [facility] Comprehensive metabolic 2000 panelon 04-23-2024 Albumin [Mass/Vol] 4.1 g/dL 3.9 - 4.9 g/dL [facility] ALP [Catalytic activity/Vol] 137 U/L High 38 - 113 U/L [facility] ALT [Catalytic activity/Vol] 35 U/L 10 - 54 U/L [facility] Anion gap [Moles/Vol] 11 mmol/L 8 - 15 mmol/L [facility] AST [Catalytic activity/Vol] 16 U/L 14 - 40 U/L [facility] Bilirubin [Mass/Vol] 0.4 mg/dL 0.2 - 1 .3 mg/dL [facility] Calcium [Mass/Vol] 9.1 mg/dL 8.5 - 10. 2 mg/dL [facility] Chloride [Moles/Vol] 105 mmol/L 98 - 10 7 mmol/L [facility] CO2 [Moles/Vol] 25 mmol/L 22 - 30 mmol/L [facility] [facility] Creatinine [Mass/Vol] 0.89 mg/dL 0.73 - 1.22 mg/dL [facility] GFR/1.73 sq M.predicted among non-blacks MDRD (S/P/Bld) [Vol rate/Area] 94 mL/min/{1.73_m2} - PINF [facility] Comment on above: Estimated Glomerular Filtration Rate [...] 100 mg/dL High 74 - 99 mg/dL [facility] Comment on above: The [place] Diab[employer] Association (ADA) provides guidance for [...] Standards of Medical Care in Diabetes 2016, [place] [employer]. Diabetes Care. 2016.39(Suppl 1). Interpretation and review of laboratory results Abnormal [facility] Potassium [Moles/Vol] 4.3 mmol/L 3.7 - 5.1 mmol/L [facility] Protein [Mass/Vol] 6.5 g/dL 6.3 - 8.0 g/dL [facility] Sodium [Moles/Vol] 141 mmol/L 136 - 144 mmol/L [facility] Urea nitrogen [Mass/Vol] 22 mg/dL 9 - 24 mg/dL [facility] Albumin [Mass/Vol] 4.1 g/dL Normal 3.9-4.9 [facility] Comment on above: Order Comment: Dottyi razia Type: BLOOD SPECIMENOrdering Facility: [facility] Address: [address] [place] [address] Performed By: #### 2 432-8, ####[facility] [id number] [place] [address] [place] ALP [Catalytic activity/Vol] 137 U/L High 38-113 [facility] Comment on above: Order Comment: Dottyi razia Type: BLOOD SPECIMENOrdering Facility: [facility] Address: [address] [place] [address] Performed By: #### 2 4323-8, ####[facility] [id number] [place] [address] [place] ALT [Catalytic activity/Vol] 35 U/L Normal 10-54 [facility] Comment on above: Order Comment: Dottyi men Type: BLOOD SPECIMENOrdering Facility: [facility] Address: [address] [place] [address] Performed By: #### 2 4323-8, ####[facility] [id number] [place] [address] [place] Anion gap [Moles/Vol] 11 mmol/L Normal 8-15 [facility] Comment on above: Order Comment: Speci men Type: BLOOD SPECIMENOrdering Facility: [facility] Address: [address] [place] [address] Performed By: #### 2 4323-8, ####[facility] [id number] [place] [address] [place] AST [Catalytic activity/Vol] 16 U/L Normal 14-40 [facility] Comment on above: Order Comment: Speci men Type: BLOOD SPECIMENOrdering Facility: [facility] Address: [address] [place] [address] Performed By: #### 2 4323-8, ####[facility] [id number] [place] [address] [place] Bilirubin [Mass/Vol] 0.4 mg/dL Normal 0.2-1.3 [facility] Comment on above: Order Comment: Speci men Type: BLOOD SPECIMENOrdering Facility: [facility] Address: [address] [place] [address] Performed By: #### 2 4323-8, ####[facility] [id number] [place] [address] [place] Calcium [Mass/Vol] 9.1 mg/dL Normal 8.5-10.2 [facility] Comment on above: Order Comment: Speci men Type: BLOOD SPECIMENOrdering Facility: [facility] Address: [address] [place] [address] Performed By: #### 2 4323-8, ####[facility] [id number] [place] [address] [place] Chloride [Moles/Vol] 105 mmol/L Normal 98-107 [facility] Comment on above: Order Comment: Speci men Type: BLOOD SPECIMENOrdering Facility: [facility] Address: [address] [place] [address] Performed By: #### 2 4323-8, 27625-3 ####[facility] [id number] [place] [address] [place] CO2 [Moles/Vol] 25 mmol/L Normal 22-30 [facility] Comment on above: Order Comment: Speci men Type: BLOOD SPECIMENOrdering Facility: [facility] Address: [address] [place] [address] Performed By: #### 2 4323-8, 42927-1 ####[facility] [id number] [address] [place] Creatinine [Mass/Vol] 0.89 mg/dL Normal 0.73-1.22 [facility] Comment on above: Order Comment: Speci men Type: BLOOD SPECIMENOrdering Facility: [facility] Address: [address] [place] [address] Performed By: #### 2 4323-8, 90749-7 ####[facility] [id number] [address] STATES OF [facility] Creatinine and Glomerular filtration rate.predicted panel (S/P/Bld) 94 mL/min/1.73m??? Normal >=60 [facility] Comment on above: Order Comment: Speci men Type: BLOOD SPECIMENOrdering Facility: [facility] Address: [address] [place] [address] Result Comment: Carol mated Glomerular Filtration Rate [...] actual GFR. Performed By: #### 2 4323-8, 95794-5 ####[facility] [id number] [place] [address] [place] Glucose [Mass/Vol] 100 mg/dL High 74-99 [facility] Comment on above: Order Comment: Speci men Type: BLOOD SPECIMENOrdering Facility: [facility] Address: [address] [place] [address] Result Comment: The [place] Diabetes Association (ADA) provides guidance for cutoff [...] Standards of Medical Care in Diabetes 2016, [place] [employer]. Diabetes Care. 2016.39(Suppl 1). Performed By: #### 2 4323-8, ####[facility] [id number] [place] [address] [place] Potassium [Moles/Vol] 4.3 mmol/L Normal 3.7-5.1 [facility] Comment on above: Order Comment: Speci men Type: BLOOD SPECIMENOrdering Facility: [facility] Address: [address] [place] [address] Performed By: #### 2 4323-8, ####[facility] [id number] [place] [address] [place] Protein [Mass/Vol] 6.5 g/dL Normal 6.3-8.0 [facility] Comment on above: Order Comment: Speci men Type: BLOOD SPECIMENOrdering Facility: [facility] Address: [address] [place] [address] Performed By: #### 2 4323-8, ####[facility] [id number] [place] [address] [place] Sodium [Moles/Vol] 141 mmol/L Normal 136-144 [facility] Comment on above: Order Comment: Speci men Type: BLOOD SPECIMENOrdering Facility: [facility] Address: [address] [place] [address] Performed By: #### 2 4323-8, 49759-3 ####[facility] [id number] [place] [address] [place] Urea nitrogen [Mass/Vol] 22 mg/dL Normal 9-24 [facility] Comment on above: Order Comment: Speci men Type: BLOOD SPECIMENOrdering Facility: [facility] Address: [address] [place] [address] Performed By: #### 2 4323-8, 07552-6 ####[facility] [id number] [place] [address] [place] FERRITINon 04-23-2024 Ferritin [Mass/Vol] 589.0 ng/mL High 30.3 - 565.7 ng/mL [facility] Ferritin SerPl-mCncon 2023 Ferritin [Mass/Vol] 589.0 ng/mL High 30.3-565.7 [facility] Comment on above: Order Comment: Speci men Type: BLOOD SPECIMENOrdering Facility: [facility] Address: [address] [place] [address] Performed By: #### 1 988-5, 2276-4 ####[facility] [id number] [place] [address] [place] Ferritin [Mass/Vol]on 2023 Interpretation and review of laboratory results Abnormal [facility] LACTATE DEHYDROGENASEon - LDH [Catalytic activity/Vol] 150 U/L 135 - 225 U/L [facility] LDH SerPl-cCncon 04-23-2024 LDH [Catalytic activity/Vol] 150 U/L Normal 135-225 [facility] Comment on above: Order Comment: Speci men Type: BLOOD SPECIMENOrdering Facility: [facility] Address: [address] [place] [address] Performed By: #### 2 532-0 ####[facility] [id number] [place] [address] [place] LDH [Catalytic activity/Vol] on 04-23-2024 Interpretation and review of laboratory results Normal [facility] MAGNESIUMon 04-23-2024 Magnesium [Mass/Vol] 2.1 mg/dL 1.7 - 2 .3 mg/dL [facility] Magnesium SerPl-mCncon 04-23 Magnesium [Mass/Vol] 2.1 mg/dL Normal 1.7-2.3 [facility] Comment on above: Order Comment: Speci men Type: BLOOD SPECIMENOrdering Facility: [facility] Address: [address] [place] [address] Performed By: #### 2 4323-8, 01479-4 ####[facility] [id number] [place] [address] [place] Magnesium [Mass/Vol]on 04-23 Interpretation and review of laboratory results Normal [facility] No Panel Informationon 04-23 [facility] RUBEOLA (MEASLES)IGGon 04-23 MEASLES IGG AB, QUAL Positive Normal Positive [facility] Comment on above: Order Comment: Speci men Type: BLOOD SPECIMENOrdering Facility: [facility] Address: [address] [place] [address] Result Comment: The result suggests recent or past exposure to Measles virus or Measles vaccination. The current test does not detect neutralizing antibodies. Positive result may also be seen due to presence of passively-transferred antibodies. Please correlate with patient's history. Performed By: #### V ZVG2, MEASLG ####[facility] LABCLIA [id number] [place] [address] [place] TYPE + SCREENon 04-23-2024 ABO group Nom (Bld) B [facility] Blood group antibody screen Ql Negative [facility] HIstorical Ab Scr Status Negative [facility] Rh Nom (Bld) Negative [facility] Type and Screen Expiration 04/26/2024 23:59 [facility] ABO B Normal [facility] Comment on above: Order Comment: Speci men Type: BLOOD SPECIMENOrdering Facility: [facility] Address: [address] [place] [address] Performed By: #### T SCR ####[facility]LO[facility] BANKCLIA [id number] [place] [address] [place] HISTORICAL AB SCR STATUS Negative Normal [facility] Comment on above: Order Comment: Speci men Type: BLOOD SPECIMENOrdering Facility: [facility] Address: [address] [place] [address] Performed By: #### T SCR ####[facility] BLOOD BANKCLIA [id number] [place] [address] [place] Rh Nom (Bld) Negative Normal [facility] Comment on above: Order Comment: Speci men Type: BLOOD SPECIMENOrdering Facility: [facility] Address: [address] [place] [address] Performed By: #### T SCR ####[facility] BLOOD BANKCLIA [id number] [place] [address] [place] TYPE AND SCREEN EXPIRATION 04/26/2024 23:59 Normal [facility] Comment on above: Order Comment: Speci men Type: BLOOD SPECIMENOrdering Facility: [facility] Address: [address] [place] [address] Performed By: #### T SCR ####[facility] BLOOD BANKCLIA [id number] [place] [address] [place] VARICELLA ZOSTER IGGon 04-23 VARICELLA ZOSTER IGG, QUAL Positive Normal Positive [facility] Comment on above: Order Comment: Speci men Type: BLOOD SPECIMENOrdering Facility: [facility] Address: [address] [place] [address] Result Comment: The result suggests recent or past exposure to Varicella-Zoster virus or chickenpox vaccination or zoster vaccination. Positive result may also be seen due to presence of passively-transferred antibodies. Please correlate with patient's history. Performed By: #### V ZVG2, MEASLG ####[facility] LABCLIA [id number] [place] [address] [place] CASE MANAGEMon 04-17-2024 CASE MANAGEM Normal [facility] CBC panel Auto (Bld)on 04-17 Erythrocyte distribution width (RBC) [Ratio] 15.4 % High 11.5-15.0 [facility] Comment on above: Order Comment: Speci men Type: BLOOD SPECIMENOrdering Facility: [facility] Address: [address] [place] [address] Performed By: #### 5 8410-2 ####[facility] LABCLIA [id number] [address] [place] Hematocrit (Bld) [Volume fraction] 31.4 % Low 39.0-51.0 [facility] Comment on above: Order Comment: Speci men Type: BLOOD SPECIMENOrdering Facility: [facility] Address: [address] [place] [address] Performed By: #### 5 8410-2 ####[facility] LABCLIA [id number] [place] [address] [place] Hemoglobin (Bld) [Mass/Vol] 10.9 g/dL Low 13.0-17.0 [facility] Comment on above: Order Comment: Speci men Type: BLOOD SPECIMENOrdering Facility: [facility] Address: [address] [place] [address] Performed By: #### 5 8410-2 ####[facility] LABCLIA [id number] [place] [address] [place] MCH (RBC) [Entitic mass] 31.2 pg Normal 26.0-34.0 [facility] Comment on above: Order Comment: Speci men Type: BLOOD SPECIMENOrdering Facility: [facility] Address: [address] [place] [address] Performed By: #### 5 8410-2 ####[facility] LABIA [id number] [place] [address] [place] MCHC (RBC) [Mass/Vol] 34.7 g/dL Normal 30.5-36.0 [facility] Comment on above: Order Comment: Speci men Type: BLOOD SPECIMENOrdering Facility: [facility] Address: [address] [place] [address] Performed By: #### 5 8410-2 ####[facility] [id number] [place] [address] [place] MCV (RBC) [Entitic vol] 90.0 fL Normal 80.0-100.0 [facility] Comment on above: Order Comment: Speci men Type: BLOOD SPECIMENOrdering Facility: [facility] Address: [address] [place] [address] Performed By: #### 5 8410-2 ####[facility] LABIA [id number] [place] [address] [place] Nucleated RBC (Bld) [#/Vol] 10*3/uL Normal <0.01 [facility] Comment on above: Order Comment: Speci men Type: BLOOD SPECIMENOrdering Facility: [facility] Address: [address] [place] [address] Performed By: #### 5 8410-2 ####[facility] [id number] [place] [address] [place] Platelet mean volume (Bld) [Entitic vol] 11.5 fL Normal 9.0-12.7 [facility] Comment on above: Order Comment: Speci men Type: BLOOD SPECIMENOrdering Facility: [facility] Address: [address] [place] [address] Performed By: #### 5 8410-2 ####[facility] LABCLIA [id number] [place] [address] [place] Platelets (Bld) [#/Vol] 59 10*3/uL Low 150-400 [facility] Comment on above: Order Comment: Speci men Type: BLOOD SPECIMENOrdering Facility: [facility] Address: [address] [place] [address] Result Comment: Resu lts checked and verified.No clot detected. Performed By: #### 5 8410-2 ####[facility] LABCLIA [id number] [place] [address] [place] RBC (Bld) [#/Vol] 3.49 10*6/uL Low 4.20-6.00 [facility] Comment on above: Order Comment: Speci men Type: BLOOD SPECIMENOrdering Facility: [facility] Address: [address] [place] [address] Performed By: #### 5 8410-2 ####[facility] LABCLIA [id number] [place] [address] [place] WBC (Bld) [#/Vol] 1.87 10*3/uL Low 3.70-11.00 [facility] Comment on above: Order Comment: Speci men Type: BLOOD SPECIMENOrdering Facility: [facility] Address: [address] [place] [address] Result Comment: No c lot detected. Performed By: #### 5 8410-2 ####[facility] LABCLIA [id number] [place] [address] [place] CNCOon 04-17-2024 CNCO Letter Text Normal [facility] CNDSon 04-17-2024 CNDS Normal [facility] Comprehensive metabolic 2000 panelon 04-17-2024 Albumin [Mass/Vol] 3.7 g/dL Low 3.9-4.9 [facility] Comment on above: Order Comment: Speci men Type: BLOOD SPECIMENOrdering Facility: [facility] Address: [address] [place] [address] Performed By: #### 2 4323-8, , 2776-11 ####[facility] LABCLIA [id number] [place] [address] [place] ALP [Catalytic activity/Vol] 107 U/L Normal 38-113 [facility] Comment on above: Order Comment: Speci men Type: BLOOD SPECIMENOrdering Facility: [facility] Address: [address] [place] [address] Performed By: #### 2 4323-8, , 2776-11 ####[facility] LABIA [id number] [place] [address] [place] ALT [Catalytic activity/Vol] 53 U/L Normal 10-54 [facility] Comment on above: Order Comment: Speci men Type: BLOOD SPECIMENOrdering Facility: [facility] Address: [address] [place] [address] Performed By: #### 2 4323-8, , 2776-11 ####[facility] LABIA [id number] [place] [address] [place] Anion gap [Moles/Vol] 10 mmol/L Normal 8-15 [facility] Comment on above: Order Comment: Speci men Type: BLOOD SPECIMENOrdering Facility: [facility] Address: [address] [place] [address] Performed By: #### 2 4323-8, , 2776-11 ####[facility] LABIA [id number] [place] [address] [place] AST [Catalytic activity/Vol] 28 U/L Normal 14-40 [facility] Comment on above: Order Comment: Speci men Type: BLOOD SPECIMENOrdering Facility: [facility] Address: [address] [place] [id number] Performed By: #### 2 4323-8, 69989-2, 2776-11 ####[facility] LABCLIA [id number] [place] [address] [place] Bilirubin [Mass/Vol] 0.4 mg/dL Normal 0.2-1.3 [facility] Comment on above: Order Comment: Speci men Type: BLOOD SPECIMENOrdering Facility: [facility] Address: [address] [place] [address] Performed By: #### 2 4323-8, , 2776-11 ####[facility] LABCLIA [id number] [place] [address] [place] Calcium [Mass/Vol] 9.0 mg/dL Normal 8.5-10.2 [facility] Comment on above: Order Comment: Speci men Type: BLOOD SPECIMENOrdering Facility: [facility] Address: [address] [place] [address] Performed By: #### 2 4323-8, , 2776-11 ####[facility] LABCLIA [id number] [place] [address] [place] Chloride [Moles/Vol] 109 mmol/L High 98-107 [facility] Comment on above: Order Comment: Speci men Type: BLOOD SPECIMENOrdering Facility: [facility] Address: [address] [place] [address] Performed By: #### 2 4323-8, , 2776-11 ####[facility] LABCLIA [id number] [place] [address] [place] CO2 [Moles/Vol] 22 mmol/L Normal 22-30 [facility] Comment on above: Order Comment: Speci men Type: BLOOD SPECIMENOrdering Facility: [facility] Address: [address] [place], [place] [address] Performed By: #### 2 4323-8, , 2776-11 ####[facility] LABCLIA [id number] [address] [address] [place] Creatinine [Mass/Vol] 0.93 mg/dL Normal 0.73-1.22 [facility] Comment on above: Order Comment: Speci men Type: BLOOD SPECIMENOrdering Facility: [facility] Address: [address] [place] [address] Performed By: #### 2 4323-8, , 2776-11 ####[facility] LABIA [id number] [place] [address] [place] Creatinine and Glomerular filtration rate.predicted panel (S/P/Bld) 90 mL/min/1.73m??? Normal >=60 [facility] Comment on above: Order Comment: Sara men Type: BLOOD SPECIMENOrdering Facility: [facility] Address: [address] [place] [address] Result Comment: Carol mated Glomerular Filtration Rate [...] Performed By: #### 2 4323-8, , 2776-11 ####[facility] LABIA [id number] [address] [address] [place] Glucose [Mass/Vol] 93 mg/dL Normal 74-99 [facility] Comment on above: Order Comment: Speci men Type: BLOOD SPECIMENOrdering Facility: [facility] Address: [address] [place] [address] Result Comment: The [place] [employer] (ADA) provides guidance for cutoff [...] Standards of Medical Care in Diabetes 2016, [place] [employer]. Diabetes Care. 2016.39(Suppl 1). Performed By: #### 2 4323-8, , 2776-11 ####[facility] LABCLIA [id number] [address] [address] [place] Potassium [Moles/Vol] 3.9 mmol/L Normal 3.7-5.1 [facility] Comment on above: Order Comment: Speci men Type: BLOOD SPECIMENOrdering Facility: [facility] Address: [address] [place] [address] Performed By: #### 2 4323-8, , 2776-11 ####[facility] LABCLIA [id number] [place] [id number] [place] Protein [Mass/Vol] 5.6 g/dL Low 6.3-8.0 [facility] Comment on above: Order Comment: Speci men Type: BLOOD SPECIMENOrdering Facility: [facility] Address: [address] [place] [address] Performed By: #### 2 4323-8, , 2776-11 ####[facility] LABCLIA [id number] [address] [address] [place] Sodium [Moles/Vol] 141 mmol/L Normal 136-144 [facility] Comment on above: Order Comment: Speci men Type: BLOOD SPECIMENOrdering Facility: [facility] Address: [address] [place] [address] Performed By: #### 2 4323-8, , 2776-11 ####[facility] LABCLIA [id number] [address] [address] [place] Urea nitrogen [Mass/Vol] 17 mg/dL Normal 9-24 [facility] Comment on above: Order Comment: Speci men Type: BLOOD SPECIMENOrdering Facility: [facility] Address: [address] [place] [address] Performed By: #### 2 4323-8, 31778-9, 2777-1 ####[facility] LABCLIA [id number] [address] [address] [place] Magnesium SerPl-mCncon 04-17 Magnesium [Mass/Vol] 2.4 mg/dL High 1.7-2.3 [facility] Comment on above: Order Comment: Speci men Type: BLOOD SPECIMENOrdering Facility: [facility] Address: [address] [place] [address] Performed By: #### 2 4323-8, 25893-4, 27771 ####[facility] LABCLIA [id number] [place] [id number] [place] NURSING PROGon 04-17-2024 NURSING PROG Normal [facility] Phosphate SerPl-mCncon 04-17 Phosphate [Mass/Vol] 2.7 mg/dL Normal 2.7-4.8 [facility] Comment on above: Order Comment: Speci men Type: BLOOD SPECIMENOrdering Facility: [facility] Address: [address] [place] [address] Performed By: #### 2 4323-8, 37948-1, 2777-1 ####[facility] LABIA [id number] [place] [id number] [place] CBC panel Auto (Bld)on 04-16 Erythrocyte distribution width (RBC) [Ratio] 14.5 % Normal 11.5-15.0 [facility] Comment on above: Order Comment: Speci men Type: BLOOD SPECIMENOrdering Facility: [facility] Address: [facility] [place] [address] Performed By: #### 5 8410-2 ####[facility] LABCLIA [id number] [place] [address] [place] Hematocrit (Bld) [Volume fraction] 31.5 % Low 39.0-51.0 [facility] Comment on above: Order Comment: Speci men Type: BLOOD SPECIMENOrdering Facility: [facility] Address: [address] [place] [address] Performed By: #### 5 8410-2 ####[facility] LABCLIA [id number] [place] [address] [place] Hemoglobin (Bld) [Mass/Vol] 11.2 g/dL Low 13.0-17.0 [facility] Comment on above: Order Comment: Speci men Type: BLOOD SPECIMENOrdering Facility: [facility] Address: [address] [place] [address] Performed By: #### 5 8410-2 ####[facility] LABCLIA [id number] [place] [address] [place] MCH (RBC) [Entitic mass] 31.5 pg Normal 26.0-34.0 [facility] Comment on above: Order Comment: Speci men Type: BLOOD SPECIMENOrdering Facility: [facility] Address: [address] [place] [address] Performed By: #### 5 8410-2 ####[facility] LABCLIA [id number] [place] [address] [place] MCHC (RBC) [Mass/Vol] 35.6 g/dL Normal 30.5-36.0 [facility] Comment on above: Order Comment: Speci men Type: BLOOD SPECIMENOrdering Facility: [facility] Address: [address] [place] [address] Performed By: #### 5 8410-2 ####[facility] LABCLIA [id number] [place] [address] [place] MCV (RBC) [Entitic vol] 88.5 fL Normal 80.0-100.0 [facility] Comment on above: Order Comment: Speci men Type: BLOOD SPECIMENOrdering Facility: [facility] Address: [address] [place] [address] Performed By: #### 5 8410-2 ####[facility] [id number] [place] [address] [place] Nucleated RBC (Bld) [#/Vol] 10*3/uL Normal <0.01 [facility] Comment on above: Order Comment: Speci men Type: BLOOD SPECIMENOrdering Facility: [facility] Address: [address] [place] [address] Performed By: #### 5 8410-2 ####[facility] [id number] [place] [address] [place] Platelet mean volume (Bld) [Entitic vol] 11.7 fL Normal 9.0-12.7 [facility] Comment on above: Order Comment: Speci men Type: BLOOD SPECIMENOrdering Facility: [facility] Address: [address] [place] [address] Performed By: #### 5 8410-2 ####[facility] [id number] [place] [address] [place] Platelets (Bld) [#/Vol] 49 10*3/uL Low 150-400 [facility] Comment on above: Order Comment: Speci men Type: BLOOD SPECIMENOrdering Facility: [facility] Address: [address] [place] [address] Result Comment: Resu lts checked and verified.No clot detected. Performed By: #### 5 8410-2 ####[facility] [id number] [place] [address] [place] RBC (Bld) [#/Vol] 3.56 10*6/uL Low 4.20-6.00 [facility] Comment on above: Order Comment: Speci men Type: BLOOD SPECIMENOrdering Facility: [facility] Address: [address] [place] [address] Performed By: #### 5 8410-2 ####[facility] LABCLIA [id number] [place] [address] [place] WBC (Bld) [#/Vol] 1.44 10*3/uL Low 3.70-11.00 [facility] Comment on above: Order Comment: Speci men Type: BLOOD SPECIMENOrdering Facility: [facility] Address: [address] [place] [address] Result Comment: No c lot detected. Performed By: #### 5 8410-2 ####[facility] LABCLIA [id number] [place] [address] [place] Comprehensive metabolic 2000 panelon 04-16-2024 Albumin [Mass/Vol] 3.6 g/dL Low 3.9-4.9 [facility] Comment on above: Order Comment: Speci men Type: BLOOD SPECIMENOrdering Facility: [facility] Address: [address] [place] [address] Performed By: #### 2 4323-8, 03913-6, 2777-1 ####[facility] LABCLIA [id number] [place] [address] [place] ALP [Catalytic activity/Vol] 116 U/L High 38-113 [facility] Comment on above: Order Comment: Speci men Type: BLOOD SPECIMENOrdering Facility: [facility] Address: [address] [place] [address] Performed By: #### 2 4323-8, 59875-4, 2777-1 ####[facility] LABCLIA [id number] [place] [address] [place] ALT [Catalytic activity/Vol] 53 U/L Normal 10-54 [facility] Comment on above: Order Comment: Speci men Type: BLOOD SPECIMENOrdering Facility: [facility] Address: [address] [place] [address] Performed By: #### 2 4323-8, , 2776-11 ####[facility] LABCLIA [id number] [place] [address] [place] Anion gap [Moles/Vol] 9 mmol/L Normal 8-15 [facility] Comment on above: Order Comment: Speci men Type: BLOOD SPECIMENOrdering Facility: [facility] Address: [address] [place] [address] Performed By: #### 2 4323-8, , 2776-11 ####[facility] LABCLIA [id number] [place] [address] [place] AST [Catalytic activity/Vol] 28 U/L Normal 14-40 [facility] Comment on above: Order Comment: Speci men Type: BLOOD SPECIMENOrdering Facility: [facility] Address: [address] [place] [address] Performed By: #### 2 4323-8, , 2776-11 ####[facility] LABCLIA [id number] [place] [address] [place] Bilirubin [Mass/Vol] 0.5 mg/dL Normal 0.2-1.3 [facility] Comment on above: Order Comment: Speci men Type: BLOOD SPECIMENOrdering Facility: [facility] Address: [address] [place], [place] [address] Performed By: #### 2 4323-8, , 2776-11 ####[facility] LABCLIA [id number] [place] [id number] [place] Calcium [Mass/Vol] 9.2 mg/dL Normal 8.5-10.2 [facility] Comment on above: Order Comment: Speci men Type: BLOOD SPECIMENOrdering Facility: [facility] Address: [address] [place] [address] Performed By: #### 2 4323-8, , 2776-11 ####[facility] LABCLIA [id number] [place] [id number] [place] Chloride [Moles/Vol] 109 mmol/L High 98-107 [facility] Comment on above: Order Comment: Speci men Type: BLOOD SPECIMENOrdering Facility: [facility] Address: [address] [place] [address] Performed By: #### 2 4323-8, , 2776-11 ####[facility] LABCLIA [id number] [place] [address] [place] CO2 [Moles/Vol] 23 mmol/L Normal 22-30 [facility] Comment on above: Order Comment: Speci men Type: BLOOD SPECIMENOrdering Facility: [facility] Address: [address] [place] [address] Performed By: #### 2 4323-8, , 2776-11 ####[facility] LABCLIA [id number] [place] [address] [place] Creatinine [Mass/Vol] 0.83 mg/dL Normal 0.73-1.22 [facility] Comment on above: Order Comment: Speci men Type: BLOOD SPECIMENOrdering Facility: [facility] Address: [address] [place] [address] Performed By: #### 2 4323-8, , 2776-11 ####[facility] LABCLIA [id number] [place] [address] [place] Creatinine and Glomerular filtration rate.predicted panel (S/P/Bld) 96 mL/min/1.73m??? Normal >=60 [facility] Comment on above: Order Comment: Speci men Type: BLOOD SPECIMENOrdering Facility: [facility] Address: [address] [place] [address] Result Comment: Carol mated Glomerular Filtration Rate [...] actual GFR. Performed By: #### 2 4323-8, 78052-4, 2776-11 ####[facility] LABCLIA [id number] [place] [address] [place] Glucose [Mass/Vol] 130 mg/dL High 74-99 [facility] Comment on above: Order Comment: Sara randle Type: BLOOD SPECIMENOrdering Facility: [facility] Address: [address] [place] [address] Result Comment: The [place] [employer] (ADA) provides guidance for cutoff [...] Standards of Medical Care in Diabetes 2016, [place] [employer]. Diabetes Care. 2016.39(Suppl 1). Performed By: #### 2 4323-8, , 2776-11 ####[facility] LABIA [id number] [place] [id number] [place] Potassium [Moles/Vol] 4.4 mmol/L Normal 3.7-5.1 [facility] Comment on above: Order Comment: Sara randle Type: BLOOD SPECIMENOrdering Facility: [facility] Address: [address] [place] [id number] Performed By: #### 2 4323-8, 68968-1, 277-1 ####[facility] LABIA [id number] [address] [address] [place] Protein [Mass/Vol] 5.8 g/dL Low 6.3-8.0 [facility] Comment on above: Order Comment: Speci men Type: BLOOD SPECIMENOrdering Facility: [facility] Address: [address] [place] [address] Performed By: #### 2 4323-8, 02650-6, 2776- ####[facility] LABIA [id number] [place] [address] [place] Sodium [Moles/Vol] 141 mmol/L Normal 136-144 [facility] Comment on above: Order Comment: Speci men Type: BLOOD SPECIMENOrdering Facility: [facility] Address: [address] [place] [address] Performed By: #### 2 4323-8, 97401-4, 2776-11 ####[facility] LABIA [id number] [place] [id number] [place] Urea nitrogen [Mass/Vol] 16 mg/dL Normal 9-24 [facility] Comment on above: Order Comment: Speci men Type: BLOOD SPECIMENOrdering Facility: [facility] Address: [address] [place] [address] Performed By: #### 2 4323-8, 54934-8, 2777-1 ####[facility] [id number] [place] [id number] [place] Magnesium SerPl-mCncon 04-16 Magnesium [Mass/Vol] 2.4 mg/dL High 1.7-2.3 [facility] Comment on above: Order Comment: Speci men Type: BLOOD SPECIMENOrdering Facility: [facility] Address: [address] [place] [address] Performed By: #### 2 4323-8, 85481-8, 2777-1 ####[facility] LABCLIA [id number] [place] [id number] [place] Phosphate SerPl-mCncon 04-16 Phosphate [Mass/Vol] 3.4 mg/dL Normal 2.7-4.8 [facility] Comment on above: Order Comment: Speci men Type: BLOOD SPECIMENOrdering Facility: [facility] Address: [address] [place] [address] Performed By: #### 2 4323-8, 82706-1, 2777-1 ####[facility] LABCLIA [id number] [place] [address] [place] CASE MGT INIT ASSESon 2023 CASE MGT INIT ASSES Normal [facility] CBC panel Auto (Bld)on 04-15 Erythrocyte distribution width (RBC) [Ratio] 14.2 % Normal 11.5-15.0 [facility] Comment on above: Order Comment: Speci men Type: BLOOD SPECIMENOrdering Facility: [facility] Address: [address] [place] [address] Performed By: #### 5 8410-2 ####[facility] LABIA [id number] [place] [address] [place] Hematocrit (Bld) [Volume fraction] 32.5 % Low 39.0-51.0 [facility] Comment on above: Order Comment: Speci men Type: BLOOD SPECIMENOrdering Facility: [facility] Address: [address] [place] [address] Performed By: #### 5 8410-2 ####[facility] LABCLIA [id number] [place] [address] [place] Hemoglobin (Bld) [Mass/Vol] 11.2 g/dL Low 13.0-17.0 [facility] Comment on above: Order Comment: Speci men Type: BLOOD SPECIMENOrdering Facility: [facility] Address: [address] [place] [address] Performed By: #### 5 8410-2 ####[facility] [id number] [place] [address] [place] MCH (RBC) [Entitic mass] 30.9 pg Normal 26.0-34.0 [facility] Comment on above: Order Comment: Speci men Type: BLOOD SPECIMENOrdering Facility: [facility] Address: [address] [place] [address] Performed By: #### 5 8410-2 ####[facility] [id number] [place] [address] [place] MCHC (RBC) [Mass/Vol] 34.5 g/dL Normal 30.5-36.0 [facility] Comment on above: Order Comment: Speci men Type: BLOOD SPECIMENOrdering Facility: [facility] Address: [address] [place] [address] Performed By: #### 5 8410-2 ####[facility] [id number] [place] [address] [place] MCV (RBC) [Entitic vol] 89.8 fL Normal 80.0-100.0 [facility] Comment on above: Order Comment: Speci men Type: BLOOD SPECIMENOrdering Facility: [facility] Address: [address] [place] [address] Performed By: #### 5 8410-2 ####[facility] [id number] [place] [address] [place] Nucleated RBC (Bld) [#/Vol] 10*3/uL Normal <0.01 [facility] Comment on above: Order Comment: Speci men Type: BLOOD SPECIMENOrdering Facility: [facility] Address: [address] [place] [address] Performed By: #### 5 8410-2 ####[facility] LABCLIA [id number] [place] [address] [place] Platelet mean volume (Bld) [Entitic vol] 12.5 fL Normal 9.0-12.7 [facility] Comment on above: Order Comment: Speci men Type: BLOOD SPECIMENOrdering Facility: [facility] Address: [address] [place] [address] Performed By: #### 5 8410-2 ####[facility] LABIA [id number] [place] [address] [place] Platelets (Bld) [#/Vol] 46 10*3/uL Low 150-400 [facility] Comment on above: Order Comment: Speci men Type: BLOOD SPECIMENOrdering Facility: [facility] Address: [address] [place] [address] Performed By: #### 5 8410-2 ####[facility] LABIA [id number] [place] [address] [place] RBC (Bld) [#/Vol] 3.62 10*6/uL Low 4.20-6.00 [facility] Comment on above: Order Comment: Speci men Type: BLOOD SPECIMENOrdering Facility: [facility] Address: [address] [place] [address] Performed By: #### 5 8410-2 ####[facility] LABIA [id number] [place] [address] [place] WBC (Bld) [#/Vol] 0.64 10*3/uL Low 3.70-11.00 [facility] Comment on above: Order Comment: Speci men Type: BLOOD SPECIMENOrdering Facility: [facility] Address: [address] [place] [address] Result Comment: No c lot detected. Performed By: #### 5 8410-2 ####[facility] LABIA [id number] [address] [address] [place] BRAIN WO IVCONon 04-15-20 CT BRAIN WO IVCON Normal [facility] metabolic 2000 panelon 04-15-2024 Albumin [Mass/Vol] 3.6 g/dL Low 3.9-4.9 [facility] Comment on above: Order Comment: Speci men Type: BLOOD SPECIMENOrdering Facility: [facility] Address: [address] [place] [address] Performed By: #### 2 777-1, 54977-9, ####[facility] LABCLIA [id number] [place] [address] [place] ALP [Catalytic activity/Vol] 119 U/L High 38-113 [facility] Comment on above: Order Comment: Speci men Type: BLOOD SPECIMENOrdering Facility: [facility] Address: [address] [place] [address] Performed By: #### 2 777-1, , ####[facility] LABCLIA [id number] [place] [address] [place] ALT [Catalytic activity/Vol] 48 U/L Normal 10-54 [facility] Comment on above: Order Comment: Speci men Type: BLOOD SPECIMENOrdering Facility: [facility] Address: [address] [place] [address] Performed By: #### 2 777-1, , ####[facility] LABCLIA [id number] [address] [address] [place] Anion gap [Moles/Vol] 12 mmol/L Normal 8-15 [facility] Comment on above: Order Comment: Speci men Type: BLOOD SPECIMENOrdering Facility: [facility] Address: [address] [place] [address] Performed By: #### 2 777-1, 88769-7, ####[facility] LABCLIA [id number] [place] [address] [place] AST [Catalytic activity/Vol] 38 U/L Normal 14-40 [facility] Comment on above: Order Comment: Speci men Type: BLOOD SPECIMENOrdering Facility: [facility] Address: [address] [place] [address] Performed By: #### 2 777-1, 62785-2, ####[facility] LABCLIA [id number] [place] [address] [place] Bilirubin [Mass/Vol] 0.6 mg/dL Normal 0.2-1.3 [facility] Comment on above: Order Comment: Speci men Type: BLOOD SPECIMENOrdering Facility: [facility] Address: [address] [place] [address] Performed By: #### 2 777-1, , ####[facility] LABCLIA [id number] [place] [address] [place] Calcium [Mass/Vol] 9.0 mg/dL Normal 8.5-10.2 [facility] Comment on above: Order Comment: Speci men Type: BLOOD SPECIMENOrdering Facility: [facility] Address: [address] [place] [address] Performed By: #### 2 777-1, , ####[facility] LABCLIA [id number] [place] [address] [place] Chloride [Moles/Vol] 105 mmol/L Normal 98-107 [facility] Comment on above: Order Comment: Speci men Type: BLOOD SPECIMENOrdering Facility: [facility] Address: [address] [place] [address] Performed By: #### 2 777-1, 27009-4, ####[facility] LABCLIA [id number] [place] [id number] [place] CO2 [Moles/Vol] 20 mmol/L Low 22-30 [facility] Comment on above: Order Comment: Speci men Type: BLOOD SPECIMENOrdering Facility: [facility] Address: [address] [place] [address] Performed By: #### 2 777-1, 49225-6, ####[facility] LABCLIA [id number] [place] [address] [place] Creatinine [Mass/Vol] 0.85 mg/dL Normal 0.73-1.22 [facility] Comment on above: Order Comment: Speci men Type: BLOOD SPECIMENOrdering Facility: [facility] Address: [address] [place] [address] Performed By: #### 2 777-1, , ####[facility] LABCLIA [id number] [place] [address] [place] Creatinine and Glomerular filtration rate.predicted panel (S/P/Bld) 95 mL/min/1.73m??? Normal >=60 [facility] Comment on above: Order Comment: Speci men Type: BLOOD SPECIMENOrdering Facility: [facility] Address: [address] [place] [address] Result Comment: Carol mated Glomerular Filtration Rate [...] reflect actual GFR. Performed By: #### 2 777-1, , ####[facility] LABCLIA [id number] [place] [id number] [place] Glucose [Mass/Vol] 115 mg/dL High 74-99 [facility] Comment on above: Order Comment: Speci men Type: BLOOD SPECIMENOrdering Facility: [facility] Address: [address] [place], [place] [address] Result Comment: The [place] [employer] (ADA) provides guidance for cutoff [...] Standards of Medical Care in Diabetes 2016, [place] [employer]. Diabetes Care. 2016.39(Suppl 1). Performed By: #### 2 777-1, , ####[facility] LABCLIA [id number] [place] [address] [place] Potassium [Moles/Vol] 4.6 mmol/L Normal 3.7-5.1 [facility] Comment on above: Order Comment: Speci men Type: BLOOD SPECIMENOrdering Facility: [facility] Address: [address] [place] [address] Performed By: #### 2 777-1, , ####[facility] LABCLIA [id number] [place] [id number] [place] Protein [Mass/Vol] 6.1 g/dL Low 6.3-8.0 [facility] Comment on above: Order Comment: Speci men Type: BLOOD SPECIMENOrdering Facility: [facility] Address: [address] [place] [address] Performed By: #### 2 777-1, , ####[facility] LABCLIA [id number] [address] [address] [place] Sodium [Moles/Vol] 137 mmol/L Normal 136-144 [facility] Comment on above: Order Comment: Speci men Type: BLOOD SPECIMENOrdering Facility: [facility] Address: [address] [place] [address] Performed By: #### 2 777-1, , ####[facility] LABCLIA [id number] [address] [address] [place] Urea nitrogen [Mass/Vol] 13 mg/dL Normal 9-24 [facility] Comment on above: Order Comment: Speci men Type: BLOOD SPECIMENOrdering Facility: [facility] Address: [address] [place] [address] Performed By: #### 2 777-1, , ####[facility] LABCLIA [id number] [address] [address] [place] ECG COMPLETEon 04-15-2024 ECG COMPLETE Normal [facility] HISTORY PHYSICALon HISTORY PHYSICAL Normal [facility] Magnesium SerPl-ncon 04-15 Magnesium [Mass/Vol] 2.3 mg/dL Normal 1.7-2.3 [facility] Comment on above: Order Comment: Speci men Type: BLOOD SPECIMENOrdering Facility: [facility] Address: [address] [place] [address] Performed By: #### 2 777-1, , ####[facility] LABCLIA [id number] [address] [address] [place] NURSING PROGon 04-15-2024 NURSING PROG Normal [facility] Phosphate SerPl-mCncon 04-15 Phosphate [Mass/Vol] 3.9 mg/dL Normal 2.7-4.8 [facility] Comment on above: Order Comment: Speci men Type: BLOOD SPECIMENOrdering Facility: [facility] Address: [address] [place] [address] Performed By: #### 2 777-1, 38784-8, 78682-1 ####[facility] LABCLIA [id number] [place] [address] [place] THERAPY NTon 04-15-2024 THERAPY NT Normal [facility] THERAPY NT Normal [facility] Urinalysis complete panel (U )on 04-15-2024 Bacteria LM.HPF (Urine sed) [#/Area] Negative Normal Negative [facility] Comment on above: Order Comment: Speci men Type: URINE SPECIMENOrdering Facility: [facility] Address: [address] [place] [address] Performed By: #### 2 4356-8 ####[facility] LABCLIA [id number] [place] [address] [place] Bilirubin Ql (U) Negative Normal Negative [facility] Comment on above: Order Comment: Speci men Type: URINE SPECIMENOrdering Facility: [facility] Address: [address] [place] [address] Performed By: #### 2 4356-8 ####[facility] LABCLIA [id number] [place] [address] [place] Clarity (Unsp spec) Clear Normal Clear [facility] Comment on above: Order Comment: Speci men Type: URINE SPECIMENOrdering Facility: [facility] Address: [address] [place] [address] Performed By: #### 2 4356-8 ####[facility] LABCLIA [id number] [place] [address] [place] Color (U) Yellow Normal Yellow [facility] Comment on above: Order Comment: Speci men Type: URINE SPECIMENOrdering Facility: [facility] Address: [address] [place] [address] Performed By: #### 2 4356-8 ####[facility] LABCLIA [id number] [place] [address] [place] Epithelial cells LM.HPF (Urine sed) [#/Area] None Seen Normal [facility] Comment on above: Order Comment: Speci men Type: URINE SPECIMENOrdering Facility: [facility] Address: [address] [place] [address] Performed By: #### 2 4356-8 ####[facility] LABCLIA [id number] [place] [address] [place] Glucose Test strip (U) [Mass/Vol] Negative Normal Negative [facility] Comment on above: Order Comment: Speci men Type: URINE SPECIMENOrdering Facility: [facility] Address: [address] [place] [address] Performed By: #### 2 4356-8 ####[facility] LABCLIA [id number] [place] [address] [place] Hemoglobin Ql (U) Negative Normal Negative [facility] Comment on above: Order Comment: Speci men Type: URINE SPECIMENOrdering Facility: [facility] Address: [address] [place] [address] Performed By: #### 2 4356-8 ####[facility] LABCLIA [id number] [place] [address] [place] Hyaline casts (Urine sed) [#/Area] 0 /[LPF] Normal 0 /LPF [facility] Comment on above: Order Comment: Speci men Type: URINE SPECIMENOrdering Facility: [facility] Address: [address] [place] [address] Performed By: #### 2 4356-8 ####[facility] LABCLIA [id number] [place] [address] [place] Ketones Ql (U) Trace Abnormal Negative [facility] Comment on above: Order Comment: Speci men Type: URINE SPECIMENOrdering Facility: [facility] Address: [address] [place] [address] Performed By: #### 2 4356-8 ####[facility] LABCLIA [id number] [place] [address] [place] Leukocyte esterase Test strip Ql (U) Negative Normal Negative [facility] Comment on above: Order Comment: Speci men Type: URINE SPECIMENOrdering Facility: [facility] Address: [address] [place] [address] Performed By: #### 2 4356-8 ####[facility] LABCLIA [id number] [place] [address] [place] Nitrite Ql (U) Negative Normal Negative [facility] Comment on above: Order Comment: Speci men Type: URINE SPECIMENOrdering Facility: [facility] Address: [address] [place] [address] Performed By: #### 2 4356-8 ####[facility] LABCLIA [id number] [place] [address] [place] pH (U) 6.0 [pH] Normal <8.5 [facility] Comment on above: Order Comment: Speci men Type: URINE SPECIMENOrdering Facility: [facility] Address: [address] [place] [address] Performed By: #### 2 4356-8 ####[facility] LABCLIA [id number] [place] [address] [place] Protein (U) [Mass/Vol] Negative Normal Negative [facility] Comment on above: Order Comment: Speci men Type: URINE SPECIMENOrdering Facility: [facility] Address: [address] [place] [address] Performed By: #### 2 4356-8 ####[facility] LABCLIA [id number] [place] [address] [place] RBC LM.HPF (Urine sed) [#/Area] 0-2 /HPF Normal 0-2 /HPF [facility] Comment on above: Order Comment: Speci men Type: URINE SPECIMENOrdering Facility: [facility] Address: [address] [place] [address] Performed By: #### 2 4356-8 ####[facility] LABIA [id number] [place] [address] [place] Specific gravity (U) [Rel density] 1.016 Normal 1.005-1.03 0 [facility] Comment on above: Order Comment: Speci men Type: URINE SPECIMENOrdering Facility: [facility] Address: [address] [place] [address] Performed By: #### 2 4356-8 ####[facility] LABIA [id number] [place] [address] [place] Urobilinogen Ql (U) 0.2 EU/dL Normal 0.2-1.0 EU/dL [facility] Comment on above: Order Comment: Speci men Type: URINE SPECIMENOrdering Facility: [facility] Address: [address] [place] [address] Performed By: #### 2 4356-8 ####[facility] LABIA [id number] [place] [address] [place] WBC LM.HPF (Urine sed) [#/Area] 0-5 /HPF Normal 0-5 /HPF [facility] Comment on above: Order Comment: Speci men Type: URINE SPECIMENOrdering Facility: [facility] Address: [address] [place] [address] Performed By: #### 2 4356-8 ####[facility] LABIA [id number] [place] [address] [place] Basic metabolic 2000 panelon 04-14-2024 Anion gap [Moles/Vol] 11 mmol/L Normal 8-15 [facility] Comment on above: Order Comment: Speci men Type: BLOOD SPECIMENOrdering Facility: [facility] Address: [address] [place] [address] Performed By: #### 2 4321-2 ####[facility] LABCLIA [id number] [place] [address] [place] Calcium [Mass/Vol] 8.5 mg/dL Normal 8.5-10.2 [facility] Comment on above: Order Comment: Speci men Type: BLOOD SPECIMENOrdering Facility: [facility] Address: [address] [place] [address] Performed By: #### 2 4321-2 ####[facility] LABCLIA [id number] [place] [address] [place] Chloride [Moles/Vol] 105 mmol/L Normal 98-107 [facility] Comment on above: Order Comment: Speci men Type: BLOOD SPECIMENOrdering Facility: [facility] Address: [address] [place] [address] Performed By: #### 2 4321-2 ####[facility] LABCLIA [id number] [place] [address] [place] CO2 [Moles/Vol] 21 mmol/L Low 22-30 [facility] Comment on above: Order Comment: Speci men Type: BLOOD SPECIMENOrdering Facility: [facility] Address: [address] [place] [address] Performed By: #### 2 4321-2 ####[facility] LABCLIA [id number] [place] [address] [place] Creatinine [Mass/Vol] 0.91 mg/dL Normal 0.73-1.22 [facility] Comment on above: Order Comment: Speci men Type: BLOOD SPECIMENOrdering Facility: [facility] Address: [address] [place] [address] Performed By: #### 2 4321-2 ####[facility] LABCLIA [id number] [place] [address] [place] Creatinine and Glomerular filtration rate.predicted panel (S/P/Bld) 92 mL/min/1.73m??? Normal >=60 [facility] Comment on above: Order Comment: Sara randle Type: BLOOD SPECIMENOrdering Facility: [facility] Address: [address] [place] [address] Result Comment: Carol mated Glomerular Filtration Rate [...] actual GFR. Performed By: #### 2 4321-2 ####[facility] LABIA [id number] [place] [address] [place] Glucose [Mass/Vol] 86 mg/dL Normal 74-99 [facility] Comment on above: Order Comment: Sara randle Type: BLOOD SPECIMENOrdering Facility: [facility] Address: [address] [place] [address] Result Comment: The [place] [employer] (ADA) provides guidance for cutoff [...] Standards of Medical Care in Diabetes 2016, [place] [employer]. Diabetes Care. 2016.39(Suppl 1). Performed By: #### 2 4321-2 ####[facility] [id number] [place] [address] [place] Potassium [Moles/Vol] 3.8 mmol/L Normal 3.7-5.1 [facility] Comment on above: Order Comment: Sara randle Type: BLOOD SPECIMENOrdering Facility: [facility] Address: [address] [place] [address] Performed By: #### 2 4321-2 ####[facility] LABCLIA [id number] [place] [id number] [place] Sodium [Moles/Vol] 137 mmol/L Normal 136-144 [facility] Comment on above: Order Comment: Speci men Type: BLOOD SPECIMENOrdering Facility: [facility] Address: [address] [place] [address] Performed By: #### 2 4321-2 ####[facility] LABCLIA [id number] [place] [address] [place] Urea nitrogen [Mass/Vol] 11 mg/dL Normal 9-24 [facility] Comment on above: Order Comment: Speci men Type: BLOOD SPECIMENOrdering Facility: [facility] Address: [address] [place] [address] Performed By: #### 2 4321-2 ####[facility] LABCLIA [id number] [place] [id number] [place] CASE MANAGEMon 04-14-2024 CASE MANAGEM Normal [facility] CBC W Auto Differential pane l (Bld)on 04-14-2024 Basophils (Bld) [#/Vol] 0.00 10*3/uL Normal <0.11 [facility] Comment on above: Order Comment: Speci men Type: BLOOD SPECIMENOrdering Facility: [facility] Address: [address] [place] [address] Performed By: #### 5 7021-8 ####[facility] LABCLIA [id number] [place] [address] [place] Basophils/100 WBC (Bld) 0.0 % Normal [facility] Comment on above: Order Comment: Speci men Type: BLOOD SPECIMENOrdering Facility: [facility] Address: [address] [place] [address] Performed By: #### 5 7021-8 ####[facility] LABCLIA [id number] [place] [address] [place] Differential cell count method Nom (Bld) Manual Normal [facility] Comment on above: Order Comment: Speci men Type: BLOOD SPECIMENOrdering Facility: [facility] Address: [address] [place] [address] Performed By: #### 5 7021-8 ####[facility] LABCLIA [id number] [place] [address] [place] Eosinophils (Bld) [#/Vol] 0.19 10*3/uL Normal <0.46 [facility] Comment on above: Order Comment: Speci men Type: BLOOD SPECIMENOrdering Facility: [facility] Address: [address] [place] [address] Performed By: #### 5 7021-8 ####[facility] LABIA [id number] [place] [address] [place] Eosinophils/100 WBC (Bld) 23.0 % Normal [facility] Comment on above: Order Comment: Speci men Type: BLOOD SPECIMENOrdering Facility: [facility] Address: [address] [place] [address] Performed By: #### 5 7021-8 ####[facility] LABIA [id number] [place] [address] [place] Erythrocyte distribution width (RBC) [Ratio] 14.4 % Normal 11.5-15.0 [facility] Comment on above: Order Comment: Speci men Type: BLOOD SPECIMENOrdering Facility: [facility] Address: [address] [place] [address] Performed By: #### 5 7021-8 ####[facility] LABCLIA [id number] [place] [address] [place] Hematocrit (Bld) [Volume fraction] 30.7 % Low 39.0-51.0 [facility] Comment on above: Order Comment: Speci men Type: BLOOD SPECIMENOrdering Facility: [facility] Address: [address] [place] [address] Performed By: #### 5 7021-8 ####[facility] LABCLIA [id number] [place] [address] [place] Hemoglobin (Bld) [Mass/Vol] 10.4 g/dL Low 13.0-17.0 [facility] Comment on above: Order Comment: Speci men Type: BLOOD SPECIMENOrdering Facility: [facility] Address: [address] [place] [address] Performed By: #### 5 7021-8 ####[facility] LABIA [id number] [place] [address] [place] Lymphocytes (Bld) [#/Vol] 0.13 10*3/uL Low 1.00-4.00 [facility] Comment on above: Order Comment: Speci men Type: BLOOD SPECIMENOrdering Facility: [facility] Address: [address] [place] [address] Performed By: #### 5 7021-8 ####[facility] LABCLIA [id number] [place] [address] [place] Lymphocytes/100 WBC (Bld) 16.0 % Normal [facility] Comment on above: Order Comment: Speci men Type: BLOOD SPECIMENOrdering Facility: [facility] Address: [address] [place] [address] Performed By: #### 5 7021-8 ####[facility] LABCLIA [id number] [place] [address] [place] MCH (RBC) [Entitic mass] 30.4 pg Normal 26.0-34.0 [facility] Comment on above: Order Comment: Speci men Type: BLOOD SPECIMENOrdering Facility: [facility] Address: [address] [place] [address] Performed By: #### 5 7021-8 ####[facility] LABCLIA [id number] [place] [address] [place] MCHC (RBC) [Mass/Vol] 33.9 g/dL Normal 30.5-36.0 [facility] Comment on above: Order Comment: Speci men Type: BLOOD SPECIMENOrdering Facility: [facility] Address: [address] [place] [address] Performed By: #### 5 7021-8 ####[facility] LABIA [id number] [place] [address] [place] MCV (RBC) [Entitic vol] 89.8 fL Normal 80.0-100.0 [facility] Comment on above: Order Comment: Speci men Type: BLOOD SPECIMENOrdering Facility: [facility] Address: [address] [place] [address] Performed By: #### 5 7021-8 ####[facility] LABIA [id number] [place] [address] [place] Monocytes (Bld) [#/Vol] 0.16 10*3/uL Normal <0.87 [facility] Comment on above: Order Comment: Speci men Type: BLOOD SPECIMENOrdering Facility: [facility] Address: [address] [place] [address] Performed By: #### 5 7021-8 ####[facility] LABIA [id number] [place] [address] [place] Monocytes/100 WBC (Bld) 19.0 % Normal [facility] Comment on above: Order Comment: Speci men Type: BLOOD SPECIMENOrdering Facility: [facility] Address: [address] [place] [address] Performed By: #### 5 7021-8 ####[facility] LABCLIA [id number] [place] [address] [place] Neutrophils (Bld) [#/Vol] 0.35 10*3/uL Low 1.45-7.50 [facility] Comment on above: Order Comment: Speci men Type: BLOOD SPECIMENOrdering Facility: [facility] Address: [address] [place] [address] Performed By: #### 5 7021-8 ####[facility] LABCLIA [id number] [place] [address] [place] Neutrophils/100 WBC (Bld) 42.0 % Normal [facility] Comment on above: Order Comment: Speci men Type: BLOOD SPECIMENOrdering Facility: [facility] Address: [address] [place] [address] Performed By: #### 5 7021-8 ####[facility] LABCLIA [id number] [place] [address] [place] Nucleated RBC (Bld) [#/Vol] 10*3/uL Normal <0.01 [facility] Comment on above: Order Comment: Speci men Type: BLOOD SPECIMENOrdering Facility: [facility] Address: [address] [place] [address] Performed By: #### 5 7021-8 ####[facility] LABCLIA [id number] [place] [address] [place] Nucleated RBC/100 WBC (Bld) [Ratio] 0.0 /100 WBC Normal [facility] Comment on above: Order Comment: Speci men Type: BLOOD SPECIMENOrdering Facility: [facility] Address: [address] [place] [address] Performed By: #### 5 7021-8 ####[facility] LABCLIA [id number] [place] [address] [place] Ovalocytes LM Ql (Bld) Few Normal [facility] Comment on above: Order Comment: Speci men Type: BLOOD SPECIMENOrdering Facility: [facility] Address: [address] [place] [address] Performed By: #### 5 7021-8 ####[facility] LABCLIA [id number] [place] [address] [place] Platelet mean volume (Bld) [Entitic vol] 12.3 fL Normal 9.0-12.7 [facility] Comment on above: Order Comment: Speci men Type: BLOOD SPECIMENOrdering Facility: [facility] Address: [address] [place] [address] Performed By: #### 5 7021-8 ####[facility] LABIA [id number] [place] [address] [place] Platelets (Bld) [#/Vol] 39 10*3/uL Low 150-400 [facility] Comment on above: Order Comment: Speci men Type: BLOOD SPECIMENOrdering Facility: [facility] Address: [address] [place] [address] Performed By: #### 5 7021-8 ####[facility] LABIA [id number] [place] [address] [place] Platelets Estimate (Bld) [#/Vol] Decreased Normal [facility] Comment on above: Order Comment: Speci men Type: BLOOD SPECIMENOrdering Facility: [facility] Address: [address] [place] [address] Performed By: #### 5 7021-8 ####[facility] LABIA [id number] [place] [address] [place] Polychromasia LM Ql (Bld) Slight Normal [facility] Comment on above: Order Comment: Speci men Type: BLOOD SPECIMENOrdering Facility: [facility] Address: [address] [place] [address] Performed By: #### 5 7021-8 ####[facility] LABIA [id number] [place] [address] [place] RBC (Bld) [#/Vol] 3.42 10*6/uL Low 4.20-6.00 [facility] Comment on above: Order Comment: Speci men Type: BLOOD SPECIMENOrdering Facility: [facility] Address: [address] [place] [address] Performed By: #### 5 7021-8 ####[facility] LABCLIA [id number] [place] [address] [place] RBC FRAGMENTS Few Abnormal None Seen [facility] Comment on above: Order Comment: Speci men Type: BLOOD SPECIMENOrdering Facility: [facility] Address: [address] [place] [address] Performed By: #### 5 7021-8 ####[facility] LABCLIA [id number] [place] [address] [place] RED CELL MORPH Reviewed: see result s of individual morphologies Normal [facility] Comment on above: Order Comment: Speci men Type: BLOOD SPECIMENOrdering Facility: [facility] Address: [address] [place] [address] Performed By: #### 5 7021-8 ####[facility] LABCLIA [id number] [place] [address] [place] Toxic granules LM Ql (Bld) Present Normal [facility] Comment on above: Order Comment: Speci men Type: BLOOD SPECIMENOrdering Facility: [facility] Address: [address] [place] [address] Performed By: #### 5 7021-8 ####[facility] LABCLIA [id number] [place] [address] [place] WBC (Bld) [#/Vol] 0.84 10*3/uL Low 3.70-11.00 [facility] Comment on above: Order Comment: Speci men Type: BLOOD SPECIMENOrdering Facility: [facility] Address: [address] [place] [address] Result Comment: No c lot detected. Performed By: #### 5 7021-8 ####[facility] LABCLIA [id number] [place] [id number] [place] Basophils (Bld) [#/Vol] 0.01 10*3/uL Normal <0.11 [facility] Comment on above: Order Comment: Speci men Type: BLOOD SPECIMENOrdering Facility: [facility] Address: [address] [place] [address] Performed By: #### 5 7021-8 ####[facility] LABCLIA [id number] [place] [address] [place] Basophils/100 WBC (Bld) 1.8 % Normal [facility] Comment on above: Order Comment: Speci men Type: BLOOD SPECIMENOrdering Facility: [facility] Address: [address] [place] [address] Performed By: #### 5 7021-8 ####[facility] LABCLIA [id number] [place] [address] [place] Differential cell count method Nom (Bld) Manual Normal [facility] Comment on above: Order Comment: Speci men Type: BLOOD SPECIMENOrdering Facility: [facility] Address: [address] [place] [address] Performed By: #### 5 7021-8 ####[facility] LABCLIA [id number] [place] [address] [place] Eosinophils (Bld) [#/Vol] 0.18 10*3/uL Normal <0.46 [facility] Comment on above: Order Comment: Speci men Type: BLOOD SPECIMENOrdering Facility: [facility] Address: [address] [place] [address] Performed By: #### 5 7021-8 ####[facility] LABCLIA [id number] [place] [address] [place] Eosinophils/100 WBC (Bld) 33.9 % Normal [facility] Comment on above: Order Comment: Speci men Type: BLOOD SPECIMENOrdering Facility: [facility] Address: [address] [place] [address] Performed By: #### 5 7021-8 ####[facility] LABCLIA [id number] [place] [address] [place] Erythrocyte distribution width (RBC) [Ratio] 14.3 % Normal 11.5-15.0 [facility] Comment on above: Order Comment: Speci men Type: BLOOD SPECIMENOrdering Facility: [facility] Address: [address] [place] [address] Performed By: #### 5 7021-8 ####[facility] LABCLIA [id number] [place] [address] [place] Hematocrit (Bld) [Volume fraction] 31.4 % Low 39.0-51.0 [facility] Comment on above: Order Comment: Speci men Type: BLOOD SPECIMENOrdering Facility: [facility] Address: [address] [place] [address] Performed By: #### 5 7021-8 ####[facility] LABIA [id number] [place] [address] [place] Hemoglobin (Bld) [Mass/Vol] 10.7 g/dL Low 13.0-17.0 [facility] Comment on above: Order Comment: Speci men Type: BLOOD SPECIMENOrdering Facility: [facility] Address: [address] [place] [address] Performed By: #### 5 7021-8 ####[facility] LABCLIA [id number] [place] [id number] [place] Lymphocytes (Bld) [#/Vol] 0.09 10*3/uL Low 1.00-4.00 [facility] Comment on above: Order Comment: Speci men Type: BLOOD SPECIMENOrdering Facility: [facility] Address: [address] [place] [address] Performed By: #### 5 7021-8 ####[facility] LABIA [id number] [place] [address] [place] Lymphocytes/100 WBC (Bld) 16.1 % Normal [facility] Comment on above: Order Comment: Speci men Type: BLOOD SPECIMENOrdering Facility: [facility] Address: [address] [place] [address] Performed By: #### 5 7021-8 ####[facility] LABCLIA [id number] [place] [address] [place] MCH (RBC) [Entitic mass] 30.4 pg Normal 26.0-34.0 [facility] Comment on above: Order Comment: Speci men Type: BLOOD SPECIMENOrdering Facility: [facility] Address: [address] [place] [address] Performed By: #### 5 7021-8 ####[facility] LABCLIA [id number] [place] [address] [place] MCHC (RBC) [Mass/Vol] 34.1 g/dL Normal 30.5-36.0 [facility] Comment on above: Order Comment: Speci men Type: BLOOD SPECIMENOrdering Facility: [facility] Address: [address] [place] [address] Performed By: #### 5 7021-8 ####[facility] LABIA [id number] [place] [address] [place] MCV (RBC) [Entitic vol] 89.2 fL Normal 80.0-100.0 [facility] Comment on above: Order Comment: Speci men Type: BLOOD SPECIMENOrdering Facility: [facility] Address: [address] [place] [address] Performed By: #### 5 7021-8 ####[facility] LABCLIA [id number] [place] [address] [place] Monocytes (Bld) [#/Vol] 0.12 10*3/uL Normal <0.87 [facility] Comment on above: Order Comment: Speci men Type: BLOOD SPECIMENOrdering Facility: [facility] Address: [address] [place] [address] Performed By: #### 5 7021-8 ####[facility] LABCLIA [id number] [place] [address] [place] Monocytes/100 WBC (Bld) 22.3 % Normal [facility] Comment on above: Order Comment: Speci men Type: BLOOD SPECIMENOrdering Facility: [facility] Address: [address] [place] [address] Performed By: #### 5 7021-8 ####[facility] LABCLIA [id number] [place] [address] [place] Neutrophils (Bld) [#/Vol] 0.14 10*3/uL Low 1.45-7.50 [facility] Comment on above: Order Comment: Speci men Type: BLOOD SPECIMENOrdering Facility: [facility] Address: [address] [place] [address] Performed By: #### 5 7021-8 ####[facility] LABCLIA [id number] [place] [address] [place] Neutrophils/100 WBC (Bld) 25.9 % Normal [facility] Comment on above: Order Comment: Speci men Type: BLOOD SPECIMENOrdering Facility: [facility] Address: [address] [place] [address] Performed By: #### 5 7021-8 ####[facility] LABCLIA [id number] [place] [address] [place] Nucleated RBC (Bld) [#/Vol] 10*3/uL Normal <0.01 [facility] Comment on above: Order Comment: Speci men Type: BLOOD SPECIMENOrdering Facility: [facility] Address: [address] [place] [address] Performed By: #### 5 7021-8 ####[facility] LABCLIA [id number] [place] [address] [place] Nucleated RBC/100 WBC (Bld) [Ratio] 0.9 /100 WBC Normal [facility] Comment on above: Order Comment: Speci men Type: BLOOD SPECIMENOrdering Facility: [facility] Address: [address] [place] [address] Performed By: #### 5 7021-8 ####[facility] LABCLIA [id number] [place] [address] [place] Ovalocytes LM Ql (Bld) Few Normal [facility] Comment on above: Order Comment: Speci men Type: BLOOD SPECIMENOrdering Facility: [facility] Address: [address] [place] [address] Performed By: #### 5 7021-8 ####[facility] LABCLIA [id number] [place] [address] [place] Platelet mean volume (Bld) [Entitic vol] 10.7 fL Normal 9.0-12.7 [facility] Comment on above: Order Comment: Speci men Type: BLOOD SPECIMENOrdering Facility: [facility] Address: [address] [place] [address] Performed By: #### 5 7021-8 ####[facility] LABCLIA [id number] [place] [address] [place] Platelets (Bld) [#/Vol] 41 10*3/uL Low 150-400 [facility] Comment on above: Order Comment: Speci men Type: BLOOD SPECIMENOrdering Facility: [facility] Address: [address] [place] [address] Result Comment: Resu lts checked and verified.No clot detected. Performed By: #### 5 7021-8 ####[facility] LABCLIA [id number] [place] [address] [place] Platelets Estimate (Bld) [#/Vol] Decreased Normal [facility] Comment on above: Order Comment: Speci men Type: BLOOD SPECIMENOrdering Facility: [facility] Address: [address] [place] [address] Performed By: #### 5 7021-8 ####[facility] LABCLIA [id number] [place] [address] [place] Polychromasia LM Ql (Bld) Slight Normal [facility] Comment on above: Order Comment: Speci men Type: BLOOD SPECIMENOrdering Facility: [facility] Address: [address] [place] [address] Performed By: #### 5 7021-8 ####[facility] LABCLIA [id number] [place] [address] [place] RBC (Bld) [#/Vol] 3.52 10*6/uL Low 4.20-6.00 [facility] Comment on above: Order Comment: Speci men Type: BLOOD SPECIMENOrdering Facility: [facility] Address: [address] [place] [address] Performed By: #### 5 7021-8 ####[facility] LABCLIA [id number] [place] [address] [place] RBC FRAGMENTS Few Abnormal None Seen [facility] Comment on above: Order Comment: Speci men Type: BLOOD SPECIMENOrdering Facility: [facility] Address: [address] [place] [address] Performed By: #### 5 7021-8 ####[facility] LABCLIA [id number] [place] [address] [place] RED CELL MORPH Reviewed: see result s of individual morphologies Normal [facility] Comment on above: Order Comment: Speci men Type: BLOOD SPECIMENOrdering Facility: [facility] Address: [address] [place] [address] Performed By: #### 5 7021-8 ####[facility] LABCLIA [id number] [place] [address] [place] WBC (Bld) [#/Vol] 0.53 10*3/uL Low 3.70-11.00 [facility] Comment on above: Order Comment: Speci men Type: BLOOD SPECIMENOrdering Facility: [facility] Address: [address] [place] [address] Result Comment: Resu lts checked and verified.No clot detected. Performed By: #### 5 7021-8 ####[facility] LABCLIA [id number] [place] [address] [place] CNDSon 04-14-2024 CNDS Normal [facility] CNPNon 04-14-2024 CNPN Normal [facility] CRP SerPl-mCncon 04-14-2024 CRP [Mass/Vol] 1.2 mg/dL High <0.9 [facility] Comment on above: Order Comment: Speci men Type: BLOOD SPECIMENOrdering Facility: [facility] Address: [address] [place] [address] Performed By: #### 1 988-5, 81170-3, 3084-1, 2777-1, 2276-4, HSTNT ####[facility] LABCLIA [id number] [place] [address] [place] CT BRAIN WO IVCONon 04-14-[address] BRAIN WO IVCON Normal [facility] Comprehensive metabolic 2000 panelon 04-14-2024 Albumin [Mass/Vol] 3.2 g/dL Low 3.9-4.9 [facility] Comment on above: Order Comment: Speci men Type: BLOOD SPECIMENOrdering Facility: [facility] Address: [address] [place] [address] Performed By: #### 2 4323-8, 2532-0 ####[facility] LABCLIA [id number] [place] [address] [place] ALP [Catalytic activity/Vol] 107 U/L Normal 38-113 [facility] Comment on above: Order Comment: Speci men Type: BLOOD SPECIMENOrdering Facility: [facility] Address: [address] [place] [id number] Performed By: #### 2 4323-8, 2531-0 ####[facility] LABCLIA [id number] [place] [address] [place] ALT [Catalytic activity/Vol] 31 U/L Normal 10-54 [facility] Comment on above: Order Comment: Speci men Type: BLOOD SPECIMENOrdering Facility: [facility] Address: [address] [place] [address] Performed By: #### 2 4328, 2531-0 ####[facility] LABCLIA [id number] [place] [address] [place] Anion gap [Moles/Vol] 12 mmol/L Normal 8-15 [facility] Comment on above: Order Comment: Speci men Type: BLOOD SPECIMENOrdering Facility: [facility] Address: [address] [place] [address] Performed By: #### 2 432-8, 2531-0 ####[facility] LABCLIA [id number] [place] [address] [place] AST [Catalytic activity/Vol] 28 U/L Normal 14-40 [facility] Comment on above: Order Comment: Speci men Type: BLOOD SPECIMENOrdering Facility: [facility] Address: [address] [place], [place] [address] Performed By: #### 2 432-8, 2532-0 ####[facility] LABCLIA [id number] [place] [id number] [place] Bilirubin [Mass/Vol] 0.4 mg/dL Normal 0.2-1.3 [facility] Comment on above: Order Comment: Speci men Type: BLOOD SPECIMENOrdering Facility: [facility] Address: [address] [place], [place] [address] Performed By: #### 2 4323-, 2532-0 ####[facility] LABCLIA [id number] [facility] [address] [address] [place] Calcium [Mass/Vol] 8.0 mg/dL Low 8.5-10.2 [facility] Comment on above: Order Comment: Speci men Type: BLOOD SPECIMENOrdering Facility: [facility] Address: [address] [place] [address] Performed By: #### 2 4328, 2531-0 ####[facility] LABCLIA [id number] [place] [address] [place] Chloride [Moles/Vol] 106 mmol/L Normal 98-107 [facility] Comment on above: Order Comment: Speci men Type: BLOOD SPECIMENOrdering Facility: [facility] Address: [address] [place] [address] Performed By: #### 2 4328, 2531-0 ####[facility] LABCLIA [id number] [place] [address] [place] CO2 [Moles/Vol] 20 mmol/L Low 22-30 [facility] Comment on above: Order Comment: Speci men Type: BLOOD SPECIMENOrdering Facility: [facility] Address: [address] [place] [address] Performed By: #### 2 4328, 2531-0 ####[facility] LABCLIA [id number] [place] [address] [place] Creatinine [Mass/Vol] 1.04 mg/dL Normal 0.73-1.22 [facility] Comment on above: Order Comment: Speci men Type: BLOOD SPECIMENOrdering Facility: [facility] Address: [address] [place] [address] Performed By: #### 2 4323-8, 2531-0 ####[facility] LABCLIA [id number] [id number] [address] [place] Creatinine and Glomerular filtration rate.predicted panel (S/P/Bld) 79 mL/min/1.73m??? Normal >=60 [facility] Comment on above: Order Comment: Sara randle Type: BLOOD SPECIMENOrdering Facility: [facility] Address: [address] [place] [address] Result Comment: Carol mated Glomerular Filtration Rate [...] GFR. Performed By: #### 2 4323-8, 0 ####[facility] LABCLIA [id number] [place] [address] [place] Glucose [Mass/Vol] 80 mg/dL Normal 74-99 [facility] Comment on above: Order Comment: Sara randle Type: BLOOD SPECIMENOrdering Facility: [facility] Address: [address] [place] [address] Result Comment: The [place] [employer] (ADA) provides guidance for cutoff [...] Standards of Medical Care in Diabetes 2016, [place] [employer]. Diabetes Care. 2016.39(Suppl 1). Performed By: #### 2 4323-8, 0 ####[facility] LABCLIA [id number] [place] [address] [place] Potassium [Moles/Vol] 4.0 mmol/L Normal 3.7-5.1 [facility] Comment on above: Order Comment: Speci men Type: BLOOD SPECIMENOrdering Facility: [facility] Address: [address] [place] [address] Performed By: #### 2 4323-8, 2531-0 ####[facility] LABCLIA [id number] [address] [address] [place] Protein [Mass/Vol] 5.2 g/dL Low 6.3-8.0 [facility] Comment on above: Order Comment: Speci men Type: BLOOD SPECIMENOrdering Facility: [facility] Address: [address] [place] [address] Performed By: #### 2 4323-8, 0 ####[facility] LABCLIA [id number] [place] [address] [place] Sodium [Moles/Vol] 138 mmol/L Normal 136-144 [facility] Comment on above: Order Comment: Speci men Type: BLOOD SPECIMENOrdering Facility: [facility] Address: [address] [place] [address] Performed By: #### 2 4323-8, 0 ####[facility] LABCLIA [id number] [place] [address] [place] Urea nitrogen [Mass/Vol] 9 mg/dL Normal 9-24 [facility] Comment on above: Order Comment: Speci men Type: BLOOD SPECIMENOrdering Facility: [facility] Address: [address] [place] [address] Performed By: #### 2 4323-8, 0 ####[facility] LABCLIA [id number] [place] [id number] [place] ECG COMPLETEon 04-14-2024 ECG COMPLETE Normal [facility] ED NOTEon 04-14-2024 ED NOTE HNO ID: [id number] Author: SEPIDEH GARBER RN Service: ? Author Type: Registered Nurse Type: ED Notes Filed: 04/14/2024 19:07 Note Text: Bed: E12-14 Expected date: Expected time: Means of arrival: Comments: Kaushik Normal [facility] ED PROV NOTEon 04-14-2024 ED PROV NOTE Normal [facility] ED Triage Noteon 04-14-2024 ED Triage Note Normal [facility] Ferritin SerPl-mCncon 2023 Ferritin [Mass/Vol] 546.0 ng/mL Normal 30.3-565.7 [facility] Comment on above: Order Comment: Sara randle Type: BLOOD SPECIMENOrdering Facility: [facility] Address: [address] [place] [address] Performed By: #### 1 988-5, 85095-2, 3084-1, 2777-1, 2276-4, HSTNT ####[facility] LABCLIA [id number] [place] [address] [place] HIGH SENSITIVITY TROPONIN To n 04-14-2024 Troponin T.cardiac High sensitivity method [Mass/Vol] 11 ng/L Normal <12 [facility] Comment on above: Order Comment: Sara randle Type: BLOOD SPECIMENOrdering Facility: [facility] Address: [address] [place] [address] Result Comment: When assessing risk for acute [...] day MACE. Performed By: #### 1 988-5, 89893-6, 3084-1, 2777-1, 2276-4, HSTNT ####[facility] LABCLIA [id number] [place] [id number] [place] LDH SerPl-cCncon 04-14-2024 LDH [Catalytic activity/Vol] 227 U/L High 135-225 [facility] Comment on above: Order Comment: Speci men Type: BLOOD SPECIMENOrdering Facility: [facility] Address: [address] [place] [address] Result Comment: Hemo lysis present. The origin [...] indicated. Performed By: #### 2 4323-8, 2532-0 ####[facility] LABCLIA [id number] [address] [address] [place] Magnesium SerPl-ncon 04-14 Magnesium [Mass/Vol] 2.1 mg/dL Normal 1.7-2.3 [facility] Comment on above: Order Comment: Speci men Type: BLOOD SPECIMENOrdering Facility: [facility] Address: [address] [place], [place] [address] Performed By: #### 1 988-5, 78637-0, 3084-1, 2777-1, 2276-4, HSTNT ####[facility] LABCLIA [id number] [address] [address] [place] NURSING PROGon 04-14-2024 NURSING PROG Normal [facility] NURSING PROG Normal [facility] Phosphate [Mass/Vol] 2.9 mg/dL Normal 2.7-4.8 [facility] Comment on above: Order Comment: Speci men Type: BLOOD SPECIMENOrdering Facility: [facility] Address: [address] [place] [address] Performed By: #### 1 988-5, 50984-8, 3084-1, 2777-1, 2276-4, HSTNT ####[facility] LABCLIA [id number] [address] [address] [place] SOCIAL WORKon 04-14-2024 SOCIAL WORK Normal [facility] TYPE + SCREENon 04-14-2024 ABO B Normal [facility] Comment on above: Order Comment: Speci men Type: BLOOD SPECIMENOrdering Facility: [facility] Address: [address] [place] [address] Performed By: #### T SCR ####CC MAIN BLOOD BANKCLIA [id number] [place] [id number] [place] HISTORICAL AB SCR STATUS Negative Normal [facility] Comment on above: Order Comment: Speci men Type: BLOOD SPECIMENOrdering Facility: [facility] Address: [address] [place] [address] Performed By: #### T SCR ####CC MAIN BLOOD BANKCLIA [id number] [place] [address] [place] Rh Nom (Bld) Negative Normal [facility] Comment on above: Order Comment: Speci men Type: BLOOD SPECIMENOrdering Facility: [facility] Address: [address] [place] [address] Performed By: #### T SCR ####CC MAIN BLOOD BANKCLIA [id number] [place] [address] [place] TYPE AND SCREEN EXPIRATION 04/17/2024 23:59 Normal [facility] Comment on above: Order Comment: Speci men Type: BLOOD SPECIMENOrdering Facility: [facility] Address: [address] [place] [address] Performed By: #### T SCR ####CC MAIN BLOOD BANKCLIA [id number] [place] [id number] [place] Urate SerPl-mCncon 4 Urate [Mass/Vol] 3.1 mg/dL Low 4.0-8.1 [facility] Comment on above: Order Comment: Speci men Type: BLOOD SPECIMENOrdering Facility: [facility] Address: [address] [place] [address] Performed By: #### 1 988-5, 24772-4, 3084-1, 2777-1, 2276-4, HSTNT ####[facility] LABCLIA [id number] [place] [address] [place] CBC W Auto Differential pane l (Bld)on 04-13-2024 Basophils (Bld) [#/Vol] Normal [facility] Comment on above: Order Comment: Speci men Type: BLOOD SPECIMENOrdering Facility: [facility] Address: [address] [place] [address] Result Comment: Too Few Cells To Do Differential. Performed By: #### 5 7021-8 ####[facility] LABCLIA [id number] [place] [address] [place] Basophils/100 WBC (Bld) Normal [facility] Comment on above: Order Comment: Speci men Type: BLOOD SPECIMENOrdering Facility: [facility] Address: [address] [place] [address] Result Comment: Too Few Cells To Do Differential. Performed By: #### 5 7021-8 ####[facility] LABCLIA [id number] [place] [address] [place] Differential cell count method Nom (Bld) Auto Normal [facility] Comment on above: Order Comment: Speci men Type: BLOOD SPECIMENOrdering Facility: [facility] Address: [address] [place] [address] Performed By: #### 5 7021-8 ####[facility] LABCLIA [id number] [place] [address] [place] Eosinophils (Bld) [#/Vol] Normal [facility] Comment on above: Order Comment: Speci men Type: BLOOD SPECIMENOrdering Facility: [facility] Address: [address] [place] [address] Result Comment: Too Few Cells To Do Differential. Performed By: #### 5 7021-8 ####[facility] LABCLIA [id number] [place] [address] [place] Eosinophils/100 WBC (Bld) Normal [facility] Comment on above: Order Comment: Speci men Type: BLOOD SPECIMENOrdering Facility: [facility] Address: [address] [place] [address] Result Comment: Too Few Cells To Do Differential. Performed By: #### 5 7021-8 ####[facility] LABCLIA [id number] [place] [address] [place] Erythrocyte distribution width (RBC) [Ratio] 14.3 % Normal 11.5-15.0 [facility] Comment on above: Order Comment: Speci men Type: BLOOD SPECIMENOrdering Facility: [facility] Address: [address] [place] [address] Performed By: #### 5 7021-8 ####[facility] LABCLIA [id number] [place] [address] [place] Hematocrit (Bld) [Volume fraction] 29.4 % Low 39.0-51.0 [facility] Comment on above: Order Comment: Speci men Type: BLOOD SPECIMENOrdering Facility: [facility] Address: [address] [place] [address] Performed By: #### 5 7021-8 ####[facility] LABCLIA [id number] [place] [address] [place] Hemoglobin (Bld) [Mass/Vol] 10.1 g/dL Low 13.0-17.0 [facility] Comment on above: Order Comment: Speci men Type: BLOOD SPECIMENOrdering Facility: [facility] Address: [address] [place] [address] Performed By: #### 5 7021-8 ####[facility] LABCLIA [id number] [place] [address] [place] Immature granulocytes (Bld) [#/Vol] Normal [facility] Comment on above: Order Comment: Speci men Type: BLOOD SPECIMENOrdering Facility: [facility] Address: [address] [place] [address] Result Comment: Too Few Cells To Do Differential. Performed By: #### 5 7021-8 ####[facility] LABCLIA [id number] [place] [address] [place] Immature granulocytes/100 WBC (Bld) Normal [facility] Comment on above: Order Comment: Speci men Type: BLOOD SPECIMENOrdering Facility: [facility] Address: [address] [place] [address] Result Comment: Too Few Cells To Do Differential. Performed By: #### 5 7021-8 ####[facility] LABCLIA [id number] [place] [address] [place] Lymphocytes (Bld) [#/Vol] Normal [facility] Comment on above: Order Comment: Speci men Type: BLOOD SPECIMENOrdering Facility: [facility] Address: [address] [place] [address] Result Comment: Too Few Cells To Do Differential. Performed By: #### 5 7021-8 ####[facility] LABCLIA [id number] [place] [address] [place] Lymphocytes/100 WBC (Bld) Normal [facility] Comment on above: Order Comment: Speci men Type: BLOOD SPECIMENOrdering Facility: [facility] Address: [address] [place] [address] Result Comment: Too Few Cells To Do Differential. Performed By: #### 5 7021-8 ####[facility] LABCLIA [id number] [place] [address] [place] MCH (RBC) [Entitic mass] 30.7 pg Normal 26.0-34.0 [facility] Comment on above: Order Comment: Speci men Type: BLOOD SPECIMENOrdering Facility: [facility] Address: [address] [place] [address] Performed By: #### 5 7021-8 ####[facility] LABCLIA [id number] [place] [address] [place] MCHC (RBC) [Mass/Vol] 34.4 g/dL Normal 30.5-36.0 [facility] Comment on above: Order Comment: Speci men Type: BLOOD SPECIMENOrdering Facility: [facility] Address: [address] [place] [address] Performed By: #### 5 7021-8 ####[facility] LABCLIA [id number] [place] [address] [place] MCV (RBC) [Entitic vol] 89.4 fL Normal 80.0-100.0 [facility] Comment on above: Order Comment: Speci men Type: BLOOD SPECIMENOrdering Facility: [facility] Address: [address] [place] [address] Performed By: #### 5 7021-8 ####[facility] LABCLIA [id number] [place] [address] [place] Monocytes (Bld) [#/Vol] Normal [facility] Comment on above: Order Comment: Speci men Type: BLOOD SPECIMENOrdering Facility: [facility] Address: [address] [place] [address] Result Comment: Too Few Cells To Do Differential. Performed By: #### 5 7021-8 ####[facility] LABCLIA [id number] [place] [address] [place] Monocytes/100 WBC (Bld) Normal [facility] Comment on above: Order Comment: Speci men Type: BLOOD SPECIMENOrdering Facility: [facility] Address: [address] [place] [address] Result Comment: Too Few Cells To Do Differential. Performed By: #### 5 7021-8 ####[facility] LABCLIA [id number] [place] [address] [place] Neutrophils (Bld) [#/Vol] Normal [facility] Comment on above: Order Comment: Speci men Type: BLOOD SPECIMENOrdering Facility: [facility] Address: [address] [place] [address] Result Comment: Too Few Cells To Do Differential. Performed By: #### 5 7021-8 ####[facility] LABCLIA [id number] [place] [address] [place] Neutrophils/100 WBC (Bld) Normal [facility] Comment on above: Order Comment: Speci men Type: BLOOD SPECIMENOrdering Facility: [facility] Address: [address] [place] [address] Result Comment: Too Few Cells To Do Differential. Performed By: #### 5 7021-8 ####[facility] LABCLIA [id number] [place] [address] [place] Nucleated RBC (Bld) [#/Vol] 10*3/uL Normal <0.01 [facility] Comment on above: Order Comment: Speci men Type: BLOOD SPECIMENOrdering Facility: [facility] Address: [address] [place] [address] Performed By: #### 5 7021-8 ####[facility] LABCLIA [id number] [place] [address] [place] Nucleated RBC/100 WBC (Bld) [Ratio] 0.0 /100 WBC Normal [facility] Comment on above: Order Comment: Speci men Type: BLOOD SPECIMENOrdering Facility: [facility] Address: [address] [place] [address] Performed By: #### 5 7021-8 ####[facility] LABIA [id number] [place] [address] [place] Platelet mean volume (Bld) [Entitic vol] 11.6 fL Normal 9.0-12.7 [facility] Comment on above: Order Comment: Speci men Type: BLOOD SPECIMENOrdering Facility: [facility] Address: [address] [place] [address] Performed By: #### 5 7021-8 ####[facility] LABCLIA [id number] [place] [address] [place] Platelets (Bld) [#/Vol] 32 10*3/uL Low 150-400 [facility] Comment on above: Order Comment: Speci men Type: BLOOD SPECIMENOrdering Facility: [facility] Address: [address] [place] [address] Result Comment: No c lot detected.Checked and Verified\X09\ Performed By: #### 5 7021-8 ####[facility] LABCLIA [id number] [place] [address] [place] RBC (Bld) [#/Vol] 3.29 10*6/uL Low 4.20-6.00 [facility] Comment on above: Order Comment: Speci men Type: BLOOD SPECIMENOrdering Facility: [facility] Address: [address] [place] [address] Performed By: #### 5 7021-8 ####[facility] LABCLIA [id number] [place] [address] [place] WBC (Bld) [#/Vol] 0.30 10*3/uL Low 3.70-11.00 [facility] Comment on above: Order Comment: Speci men Type: BLOOD SPECIMENOrdering Facility: [facility] Address: [address] [place] [address] Result Comment: Too Few Cells To Do DifferentialNo clot detected. Performed By: #### 5 7021-8 ####[facility] LABCLIA [id number] [place] [address] [place] CRP SerPl-mCncon 04-13-2024 CRP [Mass/Vol] 1.7 mg/dL High <0.9 [facility] Comment on above: Order Comment: Speci men Type: BLOOD SPECIMENOrdering Facility: [facility] Address: [address] [place] [address] Performed By: #### 1 988-5, 34458-1, 3084-1, 2777-1, 2276-4 ####[facility] LABCLIA [id number] [place] [address] [place] Comprehensive metabolic 2000 panelon 04-13-2024 Albumin [Mass/Vol] 3.1 g/dL Low 3.9-4.9 [facility] Comment on above: Order Comment: Speci men Type: BLOOD SPECIMENOrdering Facility: [facility] Address: [address] [place] [address] Performed By: #### 2 4323-8, 2531-0 ####[facility] LABCLIA [id number] [place] [address] [place] ALP [Catalytic activity/Vol] 118 U/L High 38-113 [facility] Comment on above: Order Comment: Speci men Type: BLOOD SPECIMENOrdering Facility: [facility] Address: [address] [place] [address] Performed By: #### 2 4323-8, 2531-0 ####[facility] LABIA [id number] [place] [address] [place] ALT [Catalytic activity/Vol] 22 U/L Normal 10-54 [facility] Comment on above: Order Comment: Speci men Type: BLOOD SPECIMENOrdering Facility: [facility] Address: [address] [place] [address] Performed By: #### 2 4323-8, 2532-0 ####[facility] LABIA [id number] [place] [id number] [place] Anion gap [Moles/Vol] 9 mmol/L Normal 8-15 [facility] Comment on above: Order Comment: Speci men Type: BLOOD SPECIMENOrdering Facility: [facility] Address: [address] [place], [place] [address] Performed By: #### 2 4323-8, 2532-0 ####[facility] LABCLIA [id number] [place] [id number] [place] AST [Catalytic activity/Vol] 16 U/L Normal 14-40 [facility] Comment on above: Order Comment: Speci men Type: BLOOD SPECIMENOrdering Facility: [facility] Address: [address] [place] [address] Performed By: #### 2 432-8, 2531-0 ####[facility] LABCLIA [id number] [place] [address] [place] Bilirubin [Mass/Vol] 0.3 mg/dL Normal 0.2-1.3 [facility] Comment on above: Order Comment: Speci men Type: BLOOD SPECIMENOrdering Facility: [facility] Address: [address] [place] [address] Performed By: #### 2 432-8, 2531-0 ####[facility] LABIA [id number] [place] [address] [place] Calcium [Mass/Vol] 7.8 mg/dL Low 8.5-10.2 [facility] Comment on above: Order Comment: Speci men Type: BLOOD SPECIMENOrdering Facility: [facility] Address: [address] [place] [address] Performed By: #### 2 4323-8, 2531-0 ####[facility] LABIA [id number] [place] [address] [place] Chloride [Moles/Vol] 106 mmol/L Normal 98-107 [facility] Comment on above: Order Comment: Speci men Type: BLOOD SPECIMENOrdering Facility: [facility] Address: [address] [place] [address] Performed By: #### 2 4323-8, 2532-0 ####[facility] LABCLIA [id number] [place] [address] [place] CO2 [Moles/Vol] 23 mmol/L Normal 22-30 [facility] Comment on above: Order Comment: Speci men Type: BLOOD SPECIMENOrdering Facility: [facility] Address: [facility] [place] [address] Performed By: #### 2 4323-8, 2531-0 ####[facility] LABCLIA [id number] [facility] [place] [address] [place] Creatinine [Mass/Vol] 1.20 mg/dL Normal 0.73-1.22 [facility] Comment on above: Order Comment: Speci men Type: BLOOD SPECIMENOrdering Facility: [facility] Address: [address] [place] [address] Performed By: #### 2 4323-8, 2531-0 ####[facility] LABCLIA [id number] [place] [address] [place] Creatinine and Glomerular filtration rate.predicted panel (S/P/Bld) 66 mL/min/1.73m??? Normal >=60 [facility] Comment on above: Order Comment: Speci men Type: BLOOD SPECIMENOrdering Facility: [facility] Address: [address] [place] [address] Result Comment: Carol mated Glomerular Filtration Rate [...] GFR. Performed By: #### 2 4323-8, 2531-0 ####[facility] LABCLIA [id number] [place] [address] [place] Glucose [Mass/Vol] 104 mg/dL High 74-99 [facility] Comment on above: Order Comment: Speci men Type: BLOOD SPECIMENOrdering Facility: [facility] Address: [address] [place] [address] Result Comment: The [place] [employer] (ADA) provides guidance for cutoff [...] Standards of Medical Care in Diabetes 2016, [place] [employer]. Diabetes Care. 2016.39(Suppl 1). Performed By: #### 2 4323-8, 2531-0 ####[facility] LABCLIA [id number] [place] [address] [place] Potassium [Moles/Vol] 3.6 mmol/L Low 3.7-5.1 [facility] Comment on above: Order Comment: Speci men Type: BLOOD SPECIMENOrdering Facility: [facility] Address: [address] [place] [address] Performed By: #### 2 4323-8, 2531-0 ####[facility] LABIA [id number] [place] [address] [place] Protein [Mass/Vol] 5.0 g/dL Low 6.3-8.0 [facility] Comment on above: Order Comment: Speci men Type: BLOOD SPECIMENOrdering Facility: [facility] Address: [address] [place] [address] Performed By: #### 2 4323-8, 2531-0 ####[facility] LABIA [id number] [place] [address] [place] Sodium [Moles/Vol] 138 mmol/L Normal 136-144 [facility] Comment on above: Order Comment: Speci men Type: BLOOD SPECIMENOrdering Facility: [facility] Address: [address] [place] [address] Performed By: #### 2 4323-8, 2532-0 ####[facility] LABIA [id number] [place] [address] [place] Urea nitrogen [Mass/Vol] 8 mg/dL Low 9-24 [facility] Comment on above: Order Comment: Speci men Type: BLOOD SPECIMENOrdering Facility: [facility] Address: [address] [place] [address] Performed By: #### 2 4323-8, 2532-0 ####[facility] LABIA [id number] [place] [address] [place] Ferritin SerPl-mCncon 2023 Ferritin [Mass/Vol] 556.0 ng/mL Normal 30.3-565.7 [facility] Comment on above: Order Comment: Speci men Type: BLOOD SPECIMENOrdering Facility: [facility] Address: [address] [place] [address] Performed By: #### 1 988-5, 79024-1, 3084-1, 2777-1, 2276-4 ####[facility] [id number] [place] [address] [place] LDH SerPl-cCncon 04-13-2024 LDH [Catalytic activity/Vol] 167 U/L Normal 135-225 [facility] Comment on above: Order Comment: Speci men Type: BLOOD SPECIMENOrdering Facility: [facility] Address: [address] [place] [address] Performed By: #### 2 4323-8, 253-0 ####[facility] [id number] [place] [address] [place] Magnesium SerPl-mCncon 04-13 Magnesium [Mass/Vol] 2.1 mg/dL Normal 1.7-2.3 [facility] Comment on above: Order Comment: Speci men Type: BLOOD SPECIMENOrdering Facility: [facility] Address: [address] [place], [place] [address] [address] Performed By: #### 1 988-5, 74890-7, 3084-1, 7-1, 6-4 ####[facility] LABCLIA [id number] [place] [id number] [place] NUTRITIONon 04-13-2024 NUTRITION Normal [facility] Phosphate SerPl-mCncon 04-13 Phosphate [Mass/Vol] 2.4 mg/dL Low 2.7-4.8 [facility] Comment on above: Order Comment: Speci men Type: BLOOD SPECIMENOrdering Facility: [facility] Address: [address] [place] [address] Performed By: #### 1 988-5, 62614-9, 4-1, 2776-1, 6-4 ####[facility] LABCLIA [id number] [place] [address] [place] Urate SerPl-[facility] Urate [Mass/Vol] 2.1 mg/dL Low 4.0-8.1 [facility] Comment on above: Order Comment: Speci men Type: BLOOD SPECIMENOrdering Facility: [facility] Address: [address] [place] [address] [place] [address] Performed By: #### 1 988-5, 39454-8, 3083-1, 2776-1, 6-4 ####[facility] LABCLIA [id number] [place] [id number] [place] Bacteria Bld Culton 04-12-20 24 Bacteria identified Cx Nom (Bld) CULTURE, BLOOD: No growth 5 days Normal [facility] Comment on above: Performed By: #### 6 00-7 ####[facility] LABCLIA [id number] [place] [address] [place] Bacteria identified Cx Nom (Bld) CULTURE, BLOOD: No growth 5 days Normal [facility] Comment on above: Performed By: #### 6 00-7 ####[facility] LABCLIA [id number] [place] [address] [place] CBC W Auto Differential pane l (Bld)on 04-12-2024 Basophils (Bld) [#/Vol] Normal [facility] Comment on above: Order Comment: Speci men Type: BLOOD SPECIMENOrdering Facility: [facility] Address: [address] [place] [address] Result Comment: Too Few Cells To Do Differential. Performed By: #### 5 7021-8 ####[facility] LABIA [id number] [place] [address] [place] Basophils/100 WBC (Bld) Normal [facility] Comment on above: Order Comment: Speci men Type: BLOOD SPECIMENOrdering Facility: [facility] Address: [address] [place] [address] Result Comment: Too Few Cells To Do Differential. Performed By: #### 5 7021-8 ####[facility] LABCLIA [id number] [place] [address] [place] Differential cell count method Nom (Bld) Auto Normal [facility] Comment on above: Order Comment: Speci men Type: BLOOD SPECIMENOrdering Facility: [facility] Address: [address] [place] [address] Performed By: #### 5 7021-8 ####[facility] LABCLIA [id number] [place] [address] [place] Eosinophils (Bld) [#/Vol] Normal [facility] Comment on above: Order Comment: Speci men Type: BLOOD SPECIMENOrdering Facility: [facility] Address: [address] [place] [address] Result Comment: Too Few Cells To Do Differential. Performed By: #### 5 7021-8 ####[facility] LABCLIA [id number] [place] [address] [place] Eosinophils/100 WBC (Bld) Normal [facility] Comment on above: Order Comment: Speci men Type: BLOOD SPECIMENOrdering Facility: [facility] Address: [address] [place] [address] Result Comment: Too Few Cells To Do Differential. Performed By: #### 5 7021-8 ####[facility] LABCLIA [id number] [place] [address] [place] Erythrocyte distribution width (RBC) [Ratio] 13.9 % Normal 11.5-15.0 [facility] Comment on above: Order Comment: Speci men Type: BLOOD SPECIMENOrdering Facility: [facility] Address: [address] [place] [address] Performed By: #### 5 7021-8 ####[facility] LABCLIA [id number] [place] [address] [place] Hematocrit (Bld) [Volume fraction] 30.4 % Low 39.0-51.0 [facility] Comment on above: Order Comment: Speci men Type: BLOOD SPECIMENOrdering Facility: [facility] Address: [address] [place] [address] Performed By: #### 5 7021-8 ####[facility] LABCLIA [id number] [place] [address] [place] Hemoglobin (Bld) [Mass/Vol] 10.6 g/dL Low 13.0-17.0 [facility] Comment on above: Order Comment: Speci men Type: BLOOD SPECIMENOrdering Facility: [facility] Address: [address] [place] [address] Performed By: #### 5 7021-8 ####[facility] LABCLIA [id number] [place] [address] [place] Immature granulocytes (Bld) [#/Vol] Normal [facility] Comment on above: Order Comment: Speci men Type: BLOOD SPECIMENOrdering Facility: [facility] Address: [address] [place] [address] Result Comment: Too Few Cells To Do Differential. Performed By: #### 5 7021-8 ####[facility] LABCLIA [id number] [place] [address] [place] Immature granulocytes/100 WBC (Bld) Normal [facility] Comment on above: Order Comment: Speci men Type: BLOOD SPECIMENOrdering Facility: [facility] Address: [address] [place] [address] Result Comment: Too Few Cells To Do Differential. Performed By: #### 5 7021-8 ####[facility] LABCLIA [id number] [place] [address] [place] Lymphocytes (Bld) [#/Vol] Normal [facility] Comment on above: Order Comment: Speci men Type: BLOOD SPECIMENOrdering Facility: [facility] Address: [address] [place] [address] Result Comment: Too Few Cells To Do Differential. Performed By: #### 5 7021-8 ####[facility] LABCLIA [id number] [place] [address] [place] Lymphocytes/100 WBC (Bld) Normal [facility] Comment on above: Order Comment: Speci men Type: BLOOD SPECIMENOrdering Facility: [facility] Address: [address] [place] [address] Result Comment: Too Few Cells To Do Differential. Performed By: #### 5 7021-8 ####[facility] LABCLIA [id number] [place] [address] [place] MCH (RBC) [Entitic mass] 30.7 pg Normal 26.0-34.0 [facility] Comment on above: Order Comment: Speci men Type: BLOOD SPECIMENOrdering Facility: [facility] Address: [address] [place] [address] Performed By: #### 5 7021-8 ####[facility] LABCLIA [id number] [place] [address] [place] MCHC (RBC) [Mass/Vol] 34.9 g/dL Normal 30.5-36.0 [facility] Comment on above: Order Comment: Speci men Type: BLOOD SPECIMENOrdering Facility: [facility] Address: [address] [place] [address] Performed By: #### 5 7021-8 ####[facility] LABCLIA [id number] [place] [address] [place] MCV (RBC) [Entitic vol] 88.1 fL Normal 80.0-100.0 [facility] Comment on above: Order Comment: Speci men Type: BLOOD SPECIMENOrdering Facility: [facility] Address: [address] [place] [address] Performed By: #### 5 7021-8 ####[facility] LABIA [id number] [place] [address] [place] Monocytes (Bld) [#/Vol] Normal [facility] Comment on above: Order Comment: Speci men Type: BLOOD SPECIMENOrdering Facility: [facility] Address: [address] [place] [address] Result Comment: Too Few Cells To Do Differential. Performed By: #### 5 7021-8 ####[facility] LABCLIA [id number] [place] [address] [place] Monocytes/100 WBC (Bld) Normal [facility] Comment on above: Order Comment: Speci men Type: BLOOD SPECIMENOrdering Facility: [facility] Address: [address] [place] [address] Result Comment: Too Few Cells To Do Differential. Performed By: #### 5 7021-8 ####[facility] LABCLIA [id number] [place] [address] [place] Neutrophils (Bld) [#/Vol] Normal [facility] Comment on above: Order Comment: Speci men Type: BLOOD SPECIMENOrdering Facility: [facility] Address: [address] [place] [address] Result Comment: Too Few Cells To Do Differential. Performed By: #### 5 7021-8 ####[facility] LABCLIA [id number] [place] [address] [place] Neutrophils/100 WBC (Bld) Normal [facility] Comment on above: Order Comment: Speci men Type: BLOOD SPECIMENOrdering Facility: [facility] Address: [address] [place] [address] Result Comment: Too Few Cells To Do Differential. Performed By: #### 5 7021-8 ####[facility] LABCLIA [id number] [place] [address] [place] Nucleated RBC (Bld) [#/Vol] 10*3/uL Normal <0.01 [facility] Comment on above: Order Comment: Speci men Type: BLOOD SPECIMENOrdering Facility: [facility] Address: [address] [place] [address] Performed By: #### 5 7021-8 ####[facility] LABCLIA [id number] [place] [address] [place] Nucleated RBC/100 WBC (Bld) [Ratio] 0.0 /100 WBC Normal [facility] Comment on above: Order Comment: Speci men Type: BLOOD SPECIMENOrdering Facility: [facility] Address: [address] [place] [address] Performed By: #### 5 7021-8 ####[facility] LABCLIA [id number] [place] [address] [place] Platelet mean volume (Bld) [Entitic vol] 11.0 fL Normal 9.0-12.7 [facility] Comment on above: Order Comment: Speci men Type: BLOOD SPECIMENOrdering Facility: [facility] Address: [address] [place] [address] Performed By: #### 5 7021-8 ####[facility] LABCLIA [id number] [place] [address] [place] Platelets (Bld) [#/Vol] 37 10*3/uL Low 150-400 [facility] Comment on above: Order Comment: Speci men Type: BLOOD SPECIMENOrdering Facility: [facility] Address: [address] [place] [address] Performed By: #### 5 7021-8 ####[facility] LABCLIA [id number] [place] [address] [place] RBC (Bld) [#/Vol] 3.45 10*6/uL Low 4.20-6.00 [facility] Comment on above: Order Comment: Speci men Type: BLOOD SPECIMENOrdering Facility: [facility] Address: [address] [place] [address] Performed By: #### 5 7021-8 ####[facility] LABIA [id number] [place] [address] [place] WBC (Bld) [#/Vol] 0.20 10*3/uL Low 3.70-11.00 [facility] Comment on above: Order Comment: Speci men Type: BLOOD SPECIMENOrdering Facility: [facility] Address: [address] [place] [address] Result Comment: Resu lts checked and verified.No clot detected. Performed By: #### 5 7021-8 ####[facility] LABIA [id number] [place] [address] [place] CRP SerPl-mCncon 04-12-2024 CRP [Mass/Vol] 2.7 mg/dL High <0.9 [facility] Comment on above: Order Comment: Speci men Type: BLOOD SPECIMENOrdering Facility: [facility] Address: [address] [place] [address] Performed By: #### 1 988-5, 04142-9, 2777-1, 3084-1, 2276-4 ####[facility] LABCLIA [id number] [place] [id number] [place] Comprehensive metabolic 2000 panelon 04-12-2024 Albumin [Mass/Vol] 3.1 g/dL Low 3.9-4.9 [facility] Comment on above: Order Comment: Speci men Type: BLOOD SPECIMENOrdering Facility: [facility] Address: [address] [place] [address] Performed By: #### 2 4323-8, 2532-0 ####[facility] LABCLIA [id number] [place] [address] [place] ALP [Catalytic activity/Vol] 109 U/L Normal 38-113 [facility] Comment on above: Order Comment: Speci men Type: BLOOD SPECIMENOrdering Facility: [facility] Address: [address] [place] [address] Performed By: #### 2 432-8, 2531-0 ####[facility] LABCLIA [id number] [place] [address] [place] ALT [Catalytic activity/Vol] 20 U/L Normal 10-54 [facility] Comment on above: Order Comment: Speci men Type: BLOOD SPECIMENOrdering Facility: [facility] Address: [address] [place] [address] Performed By: #### 2 4323-8, 2532-0 ####[facility] LABCLIA [id number] [address] [address] [place] Anion gap [Moles/Vol] 10 mmol/L Normal 8-15 [facility] Comment on above: Order Comment: Speci men Type: BLOOD SPECIMENOrdering Facility: [facility] Address: [address] [place] [address] Performed By: #### 2 4323-8, 2532-0 ####[facility] LABCLIA [id number] [place] [address] [place] AST [Catalytic activity/Vol] 13 U/L Low 14-40 [facility] Comment on above: Order Comment: Speci men Type: BLOOD SPECIMENOrdering Facility: [facility] Address: [address] [place] [address] Performed By: #### 2 4323-8, 2531-0 ####[facility] LABIA [id number] [place] [address] [place] Bilirubin [Mass/Vol] 0.3 mg/dL Normal 0.2-1.3 [facility] Comment on above: Order Comment: Speci men Type: BLOOD SPECIMENOrdering Facility: [facility] Address: [address] [place] [address] Performed By: #### 2 4323-8, 2531-0 ####[facility] LABIA [id number] [place] [address] [place] Calcium [Mass/Vol] 7.6 mg/dL Low 8.5-10.2 [facility] Comment on above: Order Comment: Speci men Type: BLOOD SPECIMENOrdering Facility: [facility] Address: [address] [place] [address] Performed By: #### 2 4323-8, 2531-0 ####[facility] LABIA [id number] [place] [address] [place] Chloride [Moles/Vol] 106 mmol/L Normal 98-107 [facility] Comment on above: Order Comment: Speci men Type: BLOOD SPECIMENOrdering Facility: [facility] Address: [address] [place] [address] Performed By: #### 2 4323-8, 2532-0 ####[facility] LABCLIA [id number] [place] [address] [place] CO2 [Moles/Vol] 21 mmol/L Low 22-30 [facility] Comment on above: Order Comment: Speci men Type: BLOOD SPECIMENOrdering Facility: [facility] Address: [address] [place] [address] Performed By: #### 2 4323-8, 2531-0 ####[facility] LABCLIA [id number] [address] [address] [place] Creatinine [Mass/Vol] 1.12 mg/dL Normal 0.73-1.22 [facility] Comment on above: Order Comment: Speci men Type: BLOOD SPECIMENOrdering Facility: [facility] Address: [address] [place] [address] Performed By: #### 2 4323-8, 0 ####[facility] LABCLIA [id number] [place] [address] [place] Creatinine and Glomerular filtration rate.predicted panel (S/P/Bld) 72 mL/min/1.73m??? Normal >=60 [facility] Comment on above: Order Comment: Speci men Type: BLOOD SPECIMENOrdering Facility: [facility] Address: [address] [place] [address] Result Comment: Carol mated Glomerular Filtration Rate [...] GFR. Performed By: #### 2 4323-8, 0 ####[facility] LABCLIA [id number] [place] [address] [place] Glucose [Mass/Vol] 115 mg/dL High 74-99 [facility] Comment on above: Order Comment: Speci men Type: BLOOD SPECIMENOrdering Facility: [facility] Address: [address] [place] [address] Result Comment: The [place] [employer] (ADA) provides guidance for cutoff [...] Standards of Medical Care in Diabetes 2016, [place] [employer]. Diabetes Care. 2016.39(Suppl 1). Performed By: #### 2 4323-8, 2531-0 ####[facility] LABIA [id number] [place] [address] [place] Potassium [Moles/Vol] 3.3 mmol/L Low 3.7-5.1 [facility] Comment on above: Order Comment: Speci men Type: BLOOD SPECIMENOrdering Facility: [facility] Address: [address] [place] [address] Performed By: #### 2 4323-8, 2531-0 ####[facility] LABIA [id number] [place] [address] [place] Protein [Mass/Vol] 4.9 g/dL Low 6.3-8.0 [facility] Comment on above: Order Comment: Speci men Type: BLOOD SPECIMENOrdering Facility: [facility] Address: [address] [place] [address] Performed By: #### 2 4323-8, 2531-0 ####[facility] LABCLIA [id number] [place] [address] [place] Sodium [Moles/Vol] 137 mmol/L Normal 136-144 [facility] Comment on above: Order Comment: Speci men Type: BLOOD SPECIMENOrdering Facility: [facility] Address: [address] [place] [address] Performed By: #### 2 4323-8, 2532-0 ####[facility] LABIA [id number] [place] [address] [place] Urea nitrogen [Mass/Vol] 6 mg/dL Low 9-24 [facility] Comment on above: Order Comment: Speci men Type: BLOOD SPECIMENOrdering Facility: [facility] Address: [address] [place] [address] Performed By: #### 2 4323-8, 2532-0 ####[facility] LABIA [id number] [place] [id number] [place] Ferritin SerPl-mCncon 2023 Ferritin [Mass/Vol] 950.0 ng/mL High 30.3-565.7 [facility] Comment on above: Order Comment: Speci men Type: BLOOD SPECIMENOrdering Facility: [facility] Address: [address] [place] [address] Performed By: #### 1 988-5, 17590-8, 2777-1, 3084-1, 2276-4 ####[facility] [id number] [place] [address] [place] LDH SerPl-cCncon 04-12-2024 LDH [Catalytic activity/Vol] 165 U/L Normal 135-225 [facility] Comment on above: Order Comment: Speci men Type: BLOOD SPECIMENOrdering Facility: [facility] Address: [address] [place] [address] Performed By: #### 2 4323-8, 253-0 ####[facility] [id number] [place] [address] [place] Magnesium SerPl-mCncon 04-12 Magnesium [Mass/Vol] 1.9 mg/dL Normal 1.7-2.3 [facility] Comment on above: Order Comment: Speci men Type: BLOOD SPECIMENOrdering Facility: [facility] Address: [address] [place] [address], [place] [address] Performed By: #### 1 988-5, 28725-9, 2776-1, 3084-1, 6-4 ####[facility] LABCLIA [id number] [address] [address] [place] NURSING PROGon 04-12-2024 NURSING PROG Normal [facility] Phosphate SerPl-ncon 04-12 Phosphate [Mass/Vol] 2.2 mg/dL Low 2.7-4.8 [facility] Comment on above: Order Comment: Speci men Type: BLOOD SPECIMENOrdering Facility: [facility] Address: [address] [place] [address] Performed By: #### 1 988-5, 71801-1, 2776-1, 3084-1, 6-4 ####[facility] LABIA [id number] [place] [address] [place] Urate [facility] Urate [Mass/Vol] 1.7 mg/dL Low 4.0-8.1 [facility] Comment on above: Order Comment: Speci men Type: BLOOD SPECIMENOrdering Facility: [facility] Address: [facility] [place] [address] Performed By: #### 1 988-5, 66054-1, 2776-1, 3084-1, 6-4 ####[facility] LABCLIA [id number] [address] [address] [place] Bacteria Bld Culton 04-11-20 24 Bacteria identified Cx Nom (Bld) CULTURE, BLOOD: No growth 5 days Normal [facility] Comment on above: Performed By: #### 6 00-7 ####[facility] LABCLIA [id number] [address] [address] [place] Bacteria identified Cx Nom (Bld) CULTURE, BLOOD: No growth 5 days Normal [facility] Comment on above: Performed By: #### 6 00-7 ####[facility] LABCLIA [id number] [place] [address] [place] C diff Tox gens Stl Ql HARVEY+p robeon 04-11-2024 C. difficile toxin genes HARVEY+probe Ql (Stl) Negative Normal Negative for C. difficile toxin by PCR [facility] Comment on above: Order Comment: Speci men Type: STOOL SPECIMENOrdering Facility: [facility] Address: [address] [place] [address] Performed By: #### 5 4067-4 ####[facility] LABCLIA [id number] [place] [address] [place] CBC W Auto Differential pane l (Bld)on 04-11-2024 Basophils (Bld) [#/Vol] Normal [facility] Comment on above: Order Comment: Speci men Type: BLOOD SPECIMENOrdering Facility: [facility] Address: [address] [place] [address] Result Comment: Too Few Cells To Do Differential. Performed By: #### 5 7021-8 ####[facility] LABCLIA [id number] [place] [address] [place] Basophils/100 WBC (Bld) Normal [facility] Comment on above: Order Comment: Speci men Type: BLOOD SPECIMENOrdering Facility: [facility] Address: [address] [place] [address] Result Comment: Too Few Cells To Do Differential. Performed By: #### 5 7021-8 ####[facility] LABCLIA [id number] [place] [address] [place] Differential cell count method Nom (Bld) Auto Normal [facility] Comment on above: Order Comment: Speci men Type: BLOOD SPECIMENOrdering Facility: [facility] Address: [address] [place] [address] Performed By: #### 5 7021-8 ####[facility] LABCLIA [id number] [place] [address] [place] Eosinophils (Bld) [#/Vol] Normal [facility] Comment on above: Order Comment: Speci men Type: BLOOD SPECIMENOrdering Facility: [facility] Address: [address] [place] [address] Result Comment: Too Few Cells To Do Differential. Performed By: #### 5 7021-8 ####[facility] LABCLIA [id number] [place] [address] [place] Eosinophils/100 WBC (Bld) Normal [facility] Comment on above: Order Comment: Speci men Type: BLOOD SPECIMENOrdering Facility: [facility] Address: [address] [place] [address] Result Comment: Too Few Cells To Do Differential. Performed By: #### 5 7021-8 ####[facility] LABCLIA [id number] [place] [address] [place] Erythrocyte distribution width (RBC) [Ratio] 13.6 % Normal 11.5-15.0 [facility] Comment on above: Order Comment: Speci men Type: BLOOD SPECIMENOrdering Facility: [facility] Address: [address] [place] [address] Performed By: #### 5 7021-8 ####[facility] LABCLIA [id number] [place] [address] [place] Hematocrit (Bld) [Volume fraction] 32.2 % Low 39.0-51.0 [facility] Comment on above: Order Comment: Speci men Type: BLOOD SPECIMENOrdering Facility: [facility] Address: [address] [place] [address] Performed By: #### 5 7021-8 ####[facility] LABCLIA [id number] [place] [address] [place] Hemoglobin (Bld) [Mass/Vol] 11.1 g/dL Low 13.0-17.0 [facility] Comment on above: Order Comment: Speci men Type: BLOOD SPECIMENOrdering Facility: [facility] Address: [address] [place] [address] Performed By: #### 5 7021-8 ####[facility] LABCLIA [id number] [place] [address] [place] Immature granulocytes (Bld) [#/Vol] Normal [facility] Comment on above: Order Comment: Speci men Type: BLOOD SPECIMENOrdering Facility: [facility] Address: [address] [place] [address] Result Comment: Too Few Cells To Do Differential. Performed By: #### 5 7021-8 ####[facility] LABCLIA [id number] [place] [address] [place] Immature granulocytes/100 WBC (Bld) Normal [facility] Comment on above: Order Comment: Speci men Type: BLOOD SPECIMENOrdering Facility: [facility] Address: [address] [place] [address] Result Comment: Too Few Cells To Do Differential. Performed By: #### 5 7021-8 ####[facility] LABCLIA [id number] [place] [address] [place] Lymphocytes (Bld) [#/Vol] Normal [facility] Comment on above: Order Comment: Speci men Type: BLOOD SPECIMENOrdering Facility: [facility] Address: [address] [place] [address] Result Comment: Too Few Cells To Do Differential. Performed By: #### 5 7021-8 ####[facility] LABCLIA [id number] [place] [address] [place] Lymphocytes/100 WBC (Bld) Normal [facility] Comment on above: Order Comment: Speci men Type: BLOOD SPECIMENOrdering Facility: [facility] Address: [address] [place] [address] Result Comment: Too Few Cells To Do Differential. Performed By: #### 5 7021-8 ####[facility] LABIA [id number] [place] [address] [place] MCH (RBC) [Entitic mass] 30.9 pg Normal 26.0-34.0 [facility] Comment on above: Order Comment: Speci men Type: BLOOD SPECIMENOrdering Facility: [facility] Address: [address] [place] [address] Performed By: #### 5 7021-8 ####[facility] LABIA [id number] [place] [address] [place] MCHC (RBC) [Mass/Vol] 34.5 g/dL Normal 30.5-36.0 [facility] Comment on above: Order Comment: Speci men Type: BLOOD SPECIMENOrdering Facility: [facility] Address: [address] [place] [address] Performed By: #### 5 7021-8 ####[facility] [id number] [place] [address] [place] MCV (RBC) [Entitic vol] 89.7 fL Normal 80.0-100.0 [facility] Comment on above: Order Comment: Speci men Type: BLOOD SPECIMENOrdering Facility: [facility] Address: [address] [place] [address] Performed By: #### 5 7021-8 ####[facility] LABIA [id number] [place] [address] [place] Monocytes (Bld) [#/Vol] Normal [facility] Comment on above: Order Comment: Speci men Type: BLOOD SPECIMENOrdering Facility: [facility] Address: [address] [place] [address] Result Comment: Too Few Cells To Do Differential. Performed By: #### 5 7021-8 ####[facility] LABIA [id number] [place] [address] [place] Monocytes/100 WBC (Bld) Normal [facility] Comment on above: Order Comment: Speci men Type: BLOOD SPECIMENOrdering Facility: [facility] Address: [address] [place] [address] Result Comment: Too Few Cells To Do Differential. Performed By: #### 5 7021-8 ####[facility] LABCLIA [id number] [place] [address] [place] Neutrophils (Bld) [#/Vol] Normal [facility] Comment on above: Order Comment: Speci men Type: BLOOD SPECIMENOrdering Facility: [facility] Address: [address] [place] [address] Result Comment: Too Few Cells To Do Differential. Performed By: #### 5 7021-8 ####[facility] LABCLIA [id number] [place] [address] [place] Neutrophils/100 WBC (Bld) Normal [facility] Comment on above: Order Comment: Speci men Type: BLOOD SPECIMENOrdering Facility: [facility] Address: [address] [place] [address] Result Comment: Too Few Cells To Do Differential. Performed By: #### 5 7021-8 ####[facility] LABCLIA [id number] [place] [address] [place] Nucleated RBC (Bld) [#/Vol] 10*3/uL Normal <0.01 [facility] Comment on above: Order Comment: Speci men Type: BLOOD SPECIMENOrdering Facility: [facility] Address: [address] [place] [address] Performed By: #### 5 7021-8 ####[facility] LABCLIA [id number] [place] [address] [place] Nucleated RBC/100 WBC (Bld) [Ratio] 0.0 /100 WBC Normal [facility] Comment on above: Order Comment: Speci men Type: BLOOD SPECIMENOrdering Facility: [facility] Address: [address] [place] [address] Performed By: #### 5 7021-8 ####[facility] LABIA [id number] [place] [address] [place] Platelet mean volume (Bld) [Entitic vol] 9.8 fL Normal 9.0-12.7 [facility] Comment on above: Order Comment: Speci men Type: BLOOD SPECIMENOrdering Facility: [facility] Address: [address] [place] [address] Performed By: #### 5 7021-8 ####[facility] LABIA [id number] [place] [address] [place] Platelets (Bld) [#/Vol] 46 10*3/uL Low 150-400 [facility] Comment on above: Order Comment: Speci men Type: BLOOD SPECIMENOrdering Facility: [facility] Address: [address] [place] [address] Result Comment: No c lot detected. Performed By: #### 5 7021-8 ####[facility] LABIA [id number] [place] [address] [place] RBC (Bld) [#/Vol] 3.59 10*6/uL Low 4.20-6.00 [facility] Comment on above: Order Comment: Speci men Type: BLOOD SPECIMENOrdering Facility: [facility] Address: [address] [place] [address] Performed By: #### 5 7021-8 ####[facility] LABIA [id number] [place] [address] [place] WBC (Bld) [#/Vol] 0.10 10*3/uL Low 3.70-11.00 [facility] Comment on above: Order Comment: Speci men Type: BLOOD SPECIMENOrdering Facility: [facility] Address: [address] [place] [address] Result Comment: No c lot detected. Too Few Cells To Do Differential Performed By: #### 5 7021-8 ####[facility] LABCLIA [id number] [place] [address] [place] CRP SerPl-mCncon 04-11-2024 CRP [Mass/Vol] 4.3 mg/dL High <0.9 [facility] Comment on above: Order Comment: Speci men Type: BLOOD SPECIMENOrdering Facility: [facility] Address: [address] [place] [address] Performed By: #### 1 9123-9, 2777-1, 3084-1, 2276-4, 1987- ####[facility] LABIA [id number] [place] [address] [place] Comprehensive metabolic 2000 panelon 04-11-2024 Albumin [Mass/Vol] 3.1 g/dL Low 3.9-4.9 [facility] Comment on above: Order Comment: Speci men Type: BLOOD SPECIMENOrdering Facility: [facility] Address: [address] [place] [address] Performed By: #### 2 4323-8, 253-0 ####[facility] LABIA [id number] [place] [address] [place] ALP [Catalytic activity/Vol] 119 U/L High 38-113 [facility] Comment on above: Order Comment: Speci men Type: BLOOD SPECIMENOrdering Facility: [facility] Address: [address] [place] [address] Performed By: #### 2 4323-8, 2532-0 ####[facility] LABIA [id number] [place] [address] [place] ALT [Catalytic activity/Vol] 19 U/L Normal 10-54 [facility] Comment on above: Order Comment: Speci men Type: BLOOD SPECIMENOrdering Facility: [facility] Address: [address] [place] [address] Performed By: #### 2 4323-8, 2532-0 ####[facility] LABCLIA [id number] [facility] [place] [place] [address] [place] Anion gap [Moles/Vol] 9 mmol/L Normal 8-15 [facility] Comment on above: Order Comment: Speci men Type: BLOOD SPECIMENOrdering Facility: [facility] Address: [address] [place] [address] Performed By: #### 2 432-8, 2531-0 ####[facility] LABCLIA [id number] [place] [address] [place] AST [Catalytic activity/Vol] 16 U/L Normal 14-40 [facility] Comment on above: Order Comment: Speci men Type: BLOOD SPECIMENOrdering Facility: [facility] Address: [address] [place] [address] Performed By: #### 2 4328, 2531-0 ####[facility] LABCLIA [id number] [place] [address] [place] Bilirubin [Mass/Vol] 0.3 mg/dL Normal 0.2-1.3 [facility] Comment on above: Order Comment: Speci men Type: BLOOD SPECIMENOrdering Facility: [facility] Address: [address] [place] [address] Performed By: #### 2 432-8, 2531-0 ####[facility] LABCLIA [id number] [place] [address] [place] Calcium [Mass/Vol] 7.6 mg/dL Low 8.5-10.2 [facility] Comment on above: Order Comment: Speci men Type: BLOOD SPECIMENOrdering Facility: [facility] Address: [address] [place] [address] Performed By: #### 2 4323-8, 2531-0 ####[facility] LABCLIA [id number] [address] [id number] [address] [place] Chloride [Moles/Vol] 107 mmol/L Normal 98-107 [facility] Comment on above: Order Comment: Speci men Type: BLOOD SPECIMENOrdering Facility: [facility] Address: [address] [place] [address] Performed By: #### 2 4323-8, 2532-0 ####[facility] LABCLIA [id number] [place] [address] [place] CO2 [Moles/Vol] 21 mmol/L Low 22-30 [facility] Comment on above: Order Comment: Speci men Type: BLOOD SPECIMENOrdering Facility: [facility] Address: [address] [place] [address] Performed By: #### 2 4323-8, 2532-0 ####[facility] LABCLIA [id number] [place] [address] [place] Creatinine [Mass/Vol] 1.13 mg/dL Normal 0.73-1.22 [facility] Comment on above: Order Comment: Speci men Type: BLOOD SPECIMENOrdering Facility: [facility] Address: [address] [place] [address] Performed By: #### 2 4323-8, 2532-0 ####[facility] LABIA [id number] [place] [address] [place] Creatinine and Glomerular filtration rate.predicted panel (S/P/Bld) 71 mL/min/1.73m??? Normal >=60 [facility] Comment on above: Order Comment: Speci men Type: BLOOD SPECIMENOrdering Facility: [facility] Address: [address] [place] [address] Result Comment: Carol mated Glomerular Filtration Rate [...] GFR. Performed By: #### 2 4323-8, 0 ####[facility] LABIA [id number] [place] [address] [place] Glucose [Mass/Vol] 115 mg/dL High 74-99 [facility] Comment on above: Order Comment: Specjos men Type: BLOOD SPECIMENOrdering Facility: [facility] Address: [address] [place] [address] Result Comment: The [place] [employer] (ADA) provides guidance for cutoff [...] Standards of Medical Care in Diabetes 2016, [place] [employer]. Diabetes Care. 2016.39(Suppl 1). Performed By: #### 2 4323-8, 0 ####[facility] LABIA [id number] [place] [address] [place] Potassium [Moles/Vol] 3.5 mmol/L Low 3.7-5.1 [facility] Comment on above: Order Comment: Sara randle Type: BLOOD SPECIMENOrdering Facility: [facility] Address: [address] [place] [address] Performed By: #### 2 4323-8, 2531-0 ####[facility] LABIA [id number] [place] [address] [place] Protein [Mass/Vol] 5.1 g/dL Low 6.3-8.0 [facility] Comment on above: Order Comment: Sara randle Type: BLOOD SPECIMENOrdering Facility: [facility] Address: [address] [place], [place] [address] Performed By: #### 2 4323-8, 2532-0 ####[facility] LABIA [id number] [place] [id number] [place] Sodium [Moles/Vol] 137 mmol/L Normal 136-144 [facility] Comment on above: Order Comment: Speci men Type: BLOOD SPECIMENOrdering Facility: [facility] Address: [address] [place] [address] Performed By: #### 2 4323-8, 2532-0 ####[facility] LABIA [id number] [place] [address] [place] Urea nitrogen [Mass/Vol] 9 mg/dL Normal 9-24 [facility] Comment on above: Order Comment: Speci men Type: BLOOD SPECIMENOrdering Facility: [facility] Address: [address] [place] [address] Performed By: #### 2 4323-8, 2531-0 ####[facility] [id number] [place] [address] [place] Ferritin SerPl-mCncon 2023 Ferritin [Mass/Vol] 920.0 ng/mL High 30.3-565.7 [facility] Comment on above: Order Comment: Speci men Type: BLOOD SPECIMENOrdering Facility: [facility] Address: [address] [place] [address] Performed By: #### 1 9123-9, 2777-1, 3084-1, 2276-4, 1988- ####[facility] LABIA [id number] [place] [id number] [place] Gas and Carbon monoxide pane l (BldV)on 04-11-2024 Base excess Calc (BldV) [Moles/Vol] 0 mmol/L Normal 0-2 [facility] Comment on above: Order Comment: Speci men Type: VENOUS BLOOD SPECIMENOrdering Facility: [facility] Address: [address] [place] [address] Performed By: #### 2 4344-4 ####[facility] LABIA [id number] [place] [address] [place] Body temperature 100.22 [degF] Normal [facility] Comment on above: Order Comment: Speci men Type: VENOUS BLOOD SPECIMENOrdering Facility: [facility] Address: [address] [place] [address] Performed By: #### 2 4344-4 ####[facility] [id number] [place] [address] [place] Calcium.ionized (Bld) [Mass/Vol] 1.12 mmol/L Normal 1.08-1.30 [facility] Comment on above: Order Comment: Speci men Type: VENOUS BLOOD SPECIMENOrdering Facility: [facility] Address: [address] [place] [address] Performed By: #### 2 4344-4 ####[facility] [id number] [place] [address] [place] Calcium.ionized adjusted to pH 7.4 (BldA) [Moles/Vol] 1.12 mmol/L Normal 1.08-1.30 [facility] Comment on above: Order Comment: Speci men Type: VENOUS BLOOD SPECIMENOrdering Facility: [facility] Address: [address] [place] [address] Performed By: #### 2 4344-4 ####[facility] [id number] [place] [address] [place] Carboxyhemoglobin (BldV) [Mass fraction] 1.6 % Normal 0.0-2.0 [facility] Comment on above: Order Comment: Speci men Type: VENOUS BLOOD SPECIMENOrdering Facility: [facility] Address: [address] [place] [address] Result Comment: Carb oxyhemoglobin Reference Range for Smokers: 2.0-8.0% Performed By: #### 2 4344-4 ####[facility] LABCLIA [id number] [place] [address] [place] CO2 (BldV) [Partial pressure] 39 mm[Hg] Low 42-55 [facility] Comment on above: Order Comment: Speci men Type: VENOUS BLOOD SPECIMENOrdering Facility: [facility] Address: [address] [place] [address] Performed By: #### 2 4344-4 ####[facility] LABCLIA [id number] [address] [place] CO2 adjusted to patient's actual temperature (BldV) [Partial pressure] 41 mmHg Low 42-55 [facility] Comment on above: Order Comment: Speci men Type: VENOUS BLOOD SPECIMENOrdering Facility: [facility] Address: [address] [place] [address] Performed By: #### 2 4344-4 ####[facility] LABCLIA [id number] [place] [address] [place] Glucose [Mass/Vol] 129 mg/dL High 60-105 [facility] Comment on above: Order Comment: Speci men Type: VENOUS BLOOD SPECIMENOrdering Facility: [facility] Address: [address] [place] [address] Performed By: #### 2 4344-4 ####[facility] LABCLIA [id number] [place] [address] [place] HCO3 (Bld) [Moles/Vol] 24 mmol/L Normal 24-28 [facility] Comment on above: Order Comment: Speci men Type: VENOUS BLOOD SPECIMENOrdering Facility: [facility] Address: [address] [place] [address] Performed By: #### 2 4344-4 ####[facility] LABCLIA [id number] [place] [address] [place] Hematocrit (Bld) [Volume fraction] 32.5 % Low 39.0-51.0 [facility] Comment on above: Order Comment: Speci men Type: VENOUS BLOOD SPECIMENOrdering Facility: [facility] Address: [address] [place] [address] Performed By: #### 2 4344-4 ####[facility] LABCLIA [id number] [place] [address] [place] Hemoglobin (Bld) [Mass/Vol] 10.5 g/dL Low 13.0-17.0 [facility] Comment on above: Order Comment: Speci men Type: VENOUS BLOOD SPECIMENOrdering Facility: [facility] Address: [address] [place] [address] Performed By: #### 2 4344-4 ####[facility] LABCLIA [id number] [place] [address] [place] Lactate [Moles/Vol] 1.5 mmol/L Normal 0.5-2.2 [facility] Comment on above: Order Comment: Speci men Type: VENOUS BLOOD SPECIMENOrdering Facility: [facility] Address: [address] [place] [address] Performed By: #### 2 4344-4 ####[facility] LABCLIA [id number] [place] [address] [place] Methemoglobin (Bld) [Mass fraction] 0.4 % Normal 0.0-1.5 [facility] Comment on above: Order Comment: Speci men Type: VENOUS BLOOD SPECIMENOrdering Facility: [facility] Address: [address] [place] [address] Performed By: #### 2 4344-4 ####[facility] LABCLIA [id number] [place] [address] [place] O2 THERAPY RA=Room Air Normal [facility] Comment on above: Order Comment: Speci men Type: VENOUS BLOOD SPECIMENOrdering Facility: [facility] Address: [address] [place] [address] Performed By: #### 2 4344-4 ####[facility] LABCLIA [id number] [address] [address] [place] Oxygen (BldV) [Partial pressure] 37 mm[Hg] Normal 35-45 [facility] Comment on above: Order Comment: Speci men Type: VENOUS BLOOD SPECIMENOrdering Facility: [facility] Address: [address] [place], [place] [address] Performed By: #### 2 4344-4 ####[facility] LABCLIA [id number] [address] [address] [place] Oxygen adjusted to patient's actual temperature (BldV) [Partial pressure] 39 mmHg Normal 35-45 [facility] Comment on above: Order Comment: Speci men Type: VENOUS BLOOD SPECIMENOrdering Facility: [facility] Address: [address] [place], [place] [address] Performed By: #### 2 4344-4 ####[facility] LABCLIA [id number] [address] [address] [place] Oxygen saturation in Venous blood 67 % Normal 60-85 [facility] Comment on above: Order Comment: Speci men Type: VENOUS BLOOD SPECIMENOrdering Facility: [facility] Address: [address] [place] [address] Performed By: #### 2 4344-4 ####[facility] LABCLIA [id number] [address] [address] [place] Oxyhemoglobin (BldV) [Mass fraction] 66 % Normal 60-85 [facility] Comment on above: Order Comment: Speci men Type: VENOUS BLOOD SPECIMENOrdering Facility: [facility] Address: [address] [place] [address] Performed By: #### 2 4344-4 ####[facility] LABCLIA [id number] [address] [address] [place] pH (BldV) 7.40 [pH] Normal 7.32-7.42 [facility] Comment on above: Order Comment: Speci men Type: VENOUS BLOOD SPECIMENOrdering Facility: [facility] Address: [address] [place] [address] Performed By: #### 2 4344-4 ####[facility] LABCLIA [id number] [place] [address] [place] pH adjusted to patient's actual temperature (BldV) 7.39 Normal 7.32-7.42 [facility] Comment on above: Order Comment: Speci men Type: VENOUS BLOOD SPECIMENOrdering Facility: [facility] Address: [address] [place] [address] Performed By: #### 2 4344-4 ####[facility] LABCLIA [id number] [place] [address] [place] Potassium [Moles/Vol] 3.2 mmol/L Low 3.5-5.0 [facility] Comment on above: Order Comment: Speci men Type: VENOUS BLOOD SPECIMENOrdering Facility: [facility] Address: [address] [place] [address] Performed By: #### 2 4344-4 ####[facility] LABIA [id number] [place] [address] [place] Sodium [Moles/Vol] 136 mmol/L Normal 136-144 [facility] Comment on above: Order Comment: Speci men Type: VENOUS BLOOD SPECIMENOrdering Facility: [facility] Address: [address] [place] [address] Performed By: #### 2 4344-4 ####[facility] LABCLIA [id number] [place] [address] [place] LDH SerPl-cCncon 04-11-2024 LDH [Catalytic activity/Vol] 160 U/L Normal 135-225 [facility] Comment on above: Order Comment: Speci men Type: BLOOD SPECIMENOrdering Facility: [facility] Address: [address] [place] [address] Performed By: #### 2 4323-8, 2532-0 ####[facility] LABCLIA [id number] [place] [address] [place] Magnesium SerPl-mCncon 04-11 Magnesium [Mass/Vol] 1.7 mg/dL Normal 1.7-2.3 [facility] Comment on above: Order Comment: Speci men Type: BLOOD SPECIMENOrdering Facility: [facility] Address: [address] [place] [address] Performed By: #### 1 9123-9, 277-1, 3083-1, 2276-02, 1988-03 ####[facility] LABCLIA [id number] [place] [address] [place] NURSING PROGon 04-11-2024 NURSING PROG Normal [facility] Phosphate SerPl-mCncon 04-11 Phosphate [Mass/Vol] 2.3 mg/dL Low 2.7-4.8 [facility] Comment on above: Order Comment: Speci men Type: BLOOD SPECIMENOrdering Facility: [facility] Address: [address] [place] [address] Performed By: #### 1 9123-9, 2777-1, 3083-1, 2276-02, 1988-03 ####[facility] LABCLIA [id number] [place] [address] [place] TYPE + SCREENon 04-11-2024 ABO B Normal [facility] Comment on above: Order Comment: Speci men Type: BLOOD SPECIMENOrdering Facility: [facility] Address: [address] [place] [address] Performed By: #### T SCR ####[facility] BLOOD BANKCLIA [id number] [place] [address] [place] HISTORICAL AB SCR STATUS Negative Normal [facility] Comment on above: Order Comment: Speci men Type: BLOOD SPECIMENOrdering Facility: [facility] Address: [address] [place] [address] Performed By: #### T SCR ####[facility] BLOOD BANKCLIA [id number] [place] [address] [place] Rh Nom (Bld) Negative Normal [facility] Comment on above: Order Comment: Speci men Type: BLOOD SPECIMENOrdering Facility: [facility] Address: [address] [place] [address] Performed By: #### T SCR ####[facility] BLOOD BANKIA [id number] [address] TYPE AND SCREEN EXPIRATION 04/14/2024 23:59 Normal [facility] Comment on above: Order Comment: Speci men Type: BLOOD SPECIMENOrdering Facility: [facility] Address: [address] [place] [address] Performed By: #### T SCR ####[facility] BLOOD BANKCLIA [id number] [place] [address] [place] Urate SerPl-mCncon 4 Urate [Mass/Vol] 1.5 mg/dL Low 4.0-8.1 [facility] Comment on above: Order Comment: Speci men Type: BLOOD SPECIMENOrdering Facility: [facility] Address: [address] [place] [address] Performed By: #### 1 9123-9, 2777-1, 3084-1, 2276-4, 1988- ####[facility] LABCLIA [id number] [place] [address] [place] Bacteria Bld Culton 04-10-20 24 Bacteria identified Cx Nom (Bld) CULTURE, BLOOD: No growth 5 days Normal [facility] Comment on above: Performed By: #### 6 00-7 ####[facility] LABCLIA [id number] [place] [address] [place] Bacteria identified Cx Nom (Bld) CULTURE, BLOOD: No growth 5 days Normal [facility] Comment on above: Performed By: #### 6 00-7 ####[facility] LABCLIA [id number] [place] [address] [place] CBC W Auto Differential pane l (Bld)on 04-10-2024 Basophils (Bld) [#/Vol] Normal [facility] Comment on above: Order Comment: Speci men Type: BLOOD SPECIMENOrdering Facility: [facility] Address: [address] [place] [address] Result Comment: Too Few Cells To Do Differential. Performed By: #### 5 7021-8 ####[facility] LABIA [id number] [place] [address] [place] Basophils/100 WBC (Bld) Normal [facility] Comment on above: Order Comment: Speci men Type: BLOOD SPECIMENOrdering Facility: [facility] Address: [address] [place] [address] Result Comment: Too Few Cells To Do Differential. Performed By: #### 5 7021-8 ####[facility] LABIA [id number] [place] [address] [place] Differential cell count method Nom (Bld) Auto Normal [facility] Comment on above: Order Comment: Speci men Type: BLOOD SPECIMENOrdering Facility: [facility] Address: [address] [place] [address] Performed By: #### 5 7021-8 ####[facility] LABIA [id number] [place] [address] [place] Eosinophils (Bld) [#/Vol] Normal [facility] Comment on above: Order Comment: Speci men Type: BLOOD SPECIMENOrdering Facility: [facility] Address: [address] [place] [address] Result Comment: Too Few Cells To Do Differential. Performed By: #### 5 7021-8 ####[facility] LABCLIA [id number] [place] [address] [place] Eosinophils/100 WBC (Bld) Normal [facility] Comment on above: Order Comment: Speci men Type: BLOOD SPECIMENOrdering Facility: [facility] Address: [address] [place] [address] Result Comment: Too Few Cells To Do Differential. Performed By: #### 5 7021-8 ####[facility] LABCLIA [id number] [place] [address] [place] Erythrocyte distribution width (RBC) [Ratio] 13.6 % Normal 11.5-15.0 [facility] Comment on above: Order Comment: Speci men Type: BLOOD SPECIMENOrdering Facility: [facility] Address: [address] [place] [address] Performed By: #### 5 7021-8 ####[facility] LABIA [id number] [place] [address] [place] Hematocrit (Bld) [Volume fraction] 33.7 % Low 39.0-51.0 [facility] Comment on above: Order Comment: Speci men Type: BLOOD SPECIMENOrdering Facility: [facility] Address: [address] [place] [address] Performed By: #### 5 7021-8 ####[facility] LABCLIA [id number] [place] [address] [place] Hemoglobin (Bld) [Mass/Vol] 11.8 g/dL Low 13.0-17.0 [facility] Comment on above: Order Comment: Speci men Type: BLOOD SPECIMENOrdering Facility: [facility] Address: [address] [place] [address] Performed By: #### 5 7021-8 ####[facility] LABIA [id number] [place] [id number] [place] Immature granulocytes (Bld) [#/Vol] Normal [facility] Comment on above: Order Comment: Speci men Type: BLOOD SPECIMENOrdering Facility: [facility] Address: [address] [place] [address] Result Comment: Too Few Cells To Do Differential. Performed By: #### 5 7021-8 ####[facility] LABCLIA [id number] [place] [address] [place] Immature granulocytes/100 WBC (Bld) Normal [facility] Comment on above: Order Comment: Speci men Type: BLOOD SPECIMENOrdering Facility: [facility] Address: [address] [place] [address] Result Comment: Too Few Cells To Do Differential. Performed By: #### 5 7021-8 ####[facility] LABCLIA [id number] [place] [address] [place] Lymphocytes (Bld) [#/Vol] Normal [facility] Comment on above: Order Comment: Speci men Type: BLOOD SPECIMENOrdering Facility: [facility] Address: [address] [place] [address] Result Comment: Too Few Cells To Do Differential. Performed By: #### 5 7021-8 ####[facility] LABCLIA [id number] [place] [address] [place] Lymphocytes/100 WBC (Bld) Normal [facility] Comment on above: Order Comment: Speci men Type: BLOOD SPECIMENOrdering Facility: [facility] Address: [address] [place] [address] Result Comment: Too Few Cells To Do Differential. Performed By: #### 5 7021-8 ####[facility] LABCLIA [id number] [place] [address] [place] MCH (RBC) [Entitic mass] 31.1 pg Normal 26.0-34.0 [facility] Comment on above: Order Comment: Speci men Type: BLOOD SPECIMENOrdering Facility: [facility] Address: [address] [place] [address] Performed By: #### 5 7021-8 ####[facility] LABCLIA [id number] [place] [address] [place] MCHC (RBC) [Mass/Vol] 35.0 g/dL Normal 30.5-36.0 [facility] Comment on above: Order Comment: Speci men Type: BLOOD SPECIMENOrdering Facility: [facility] Address: [address] [place] [address] Performed By: #### 5 7021-8 ####[facility] LABCLIA [id number] [place] [address] [place] MCV (RBC) [Entitic vol] 88.9 fL Normal 80.0-100.0 [facility] Comment on above: Order Comment: Speci men Type: BLOOD SPECIMENOrdering Facility: [facility] [facility] Address: [address] [place] [address] Performed By: #### 5 7021-8 ####[facility] LABCLIA [id number] [place] [address] [place] Monocytes (Bld) [#/Vol] Normal [facility] Comment on above: Order Comment: Speci men Type: BLOOD SPECIMENOrdering Facility: [facility] Address: [address] [place] [address] Result Comment: Too Few Cells To Do Differential. Performed By: #### 5 7021-8 ####[facility] LABCLIA [id number] [place] [address] [place] Monocytes/100 WBC (Bld) Normal [facility] Comment on above: Order Comment: Speci men Type: BLOOD SPECIMENOrdering Facility: [facility] Address: [address] [place] [address] Result Comment: Too Few Cells To Do Differential. Performed By: #### 5 7021-8 ####[facility] LABCLIA [id number] [place] [address] [place] Neutrophils (Bld) [#/Vol] Normal [facility] Comment on above: Order Comment: Speci men Type: BLOOD SPECIMENOrdering Facility: [facility] Address: [address] [place] [address] Result Comment: Too Few Cells To Do Differential. Performed By: #### 5 7021-8 ####[facility] LABCLIA [id number] [place] [address] [place] Neutrophils/100 WBC (Bld) Normal [facility] Comment on above: Order Comment: Speci men Type: BLOOD SPECIMENOrdering Facility: [facility] Address: [address] [place] [address] Result Comment: Too Few Cells To Do Differential. Performed By: #### 5 7021-8 ####[facility] LABIA [id number] [place] [address] [place] Nucleated RBC (Bld) [#/Vol] 10*3/uL Normal <0.01 [facility] Comment on above: Order Comment: Speci men Type: BLOOD SPECIMENOrdering Facility: [facility] Address: [address] [place] [address] Performed By: #### 5 7021-8 ####[facility] LABIA [id number] [place] [address] [place] Nucleated RBC/100 WBC (Bld) [Ratio] 0.0 /100 WBC Normal [facility] Comment on above: Order Comment: Speci men Type: BLOOD SPECIMENOrdering Facility: [facility] Address: [address] [place] [address] Performed By: #### 5 7021-8 ####[facility] LABCLIA [id number] [place] [address] [place] Platelet mean volume (Bld) [Entitic vol] 9.5 fL Normal 9.0-12.7 [facility] Comment on above: Order Comment: Speci men Type: BLOOD SPECIMENOrdering Facility: [facility] Address: [address] [place] [address] Performed By: #### 5 7021-8 ####[facility] LABCLIA [id number] [place] [address] [place] Platelets (Bld) [#/Vol] 59 10*3/uL Low 150-400 [facility] Comment on above: Order Comment: Speci men Type: BLOOD SPECIMENOrdering Facility: [facility] Address: [address] [place] [address] Result Comment: No c lot detected. Performed By: #### 5 7021-8 ####[facility] LABCLIA [id number] [place] [address] [place] RBC (Bld) [#/Vol] 3.79 10*6/uL Low 4.20-6.00 [facility] Comment on above: Order Comment: Speci men Type: BLOOD SPECIMENOrdering Facility: [facility] Address: [address] [place] [address] Performed By: #### 5 7021-8 ####[facility] LABCLIA [id number] [place] [address] [place] WBC (Bld) [#/Vol] 0.21 10*3/uL Low 3.70-11.00 [facility] Comment on above: Order Comment: Speci men Type: BLOOD SPECIMENOrdering Facility: [facility] Address: [address] [place] [address] Result Comment: No c lot detected. Too Few Cells To Do Differential Performed By: #### 5 7021-8 ####[facility] LABCLIA [id number] [place] [address] [place] CRP SerPl-mCncon 04-10-2024 CRP [Mass/Vol] 5.5 mg/dL High <0.9 [facility] Comment on above: Order Comment: Speci men Type: BLOOD SPECIMENOrdering Facility: [facility] Address: [address] [place] [address] Performed By: #### 1 988-5, 75820-8, 2777-1, 3084-1, 2276-4 ####[facility] LABCLIA [id number] [place] [address] [place] Comprehensive metabolic 2000 panelon 04-10-2024 Albumin [Mass/Vol] 3.5 g/dL Low 3.9-4.9 [facility] Comment on above: Order Comment: Speci men Type: BLOOD SPECIMENOrdering Facility: [facility] Address: [address] [place] [address] Performed By: #### 2 4323-8, 2532-0 ####[facility] LABCLIA [id number] [place] [address] [place] ALP [Catalytic activity/Vol] 134 U/L High 38-113 [facility] Comment on above: Order Comment: Speci men Type: BLOOD SPECIMENOrdering Facility: [facility] Address: [address] [place] [address] Performed By: #### 2 4323-8, 2532-0 ####[facility] LABCLIA [id number] [place] [address] [place] ALT [Catalytic activity/Vol] 15 U/L Normal 10-54 [facility] Comment on above: Order Comment: Speci men Type: BLOOD SPECIMENOrdering Facility: [facility] Address: [address] [place] [address] Performed By: #### 2 4323-8, 2532-0 ####[facility] LABCLIA [id number] [place] [id number] [place] Anion gap [Moles/Vol] 12 mmol/L Normal 8-15 [facility] Comment on above: Order Comment: Speci men Type: BLOOD SPECIMENOrdering Facility: [facility] Address: [address] [place] [address] Performed By: #### 2 4323-8, 2531-0 ####[facility] LABIA [id number] [place] [address] [place] AST [Catalytic activity/Vol] 11 U/L Low 14-40 [facility] Comment on above: Order Comment: Speci men Type: BLOOD SPECIMENOrdering Facility: [facility] Address: [address] [place] [address] Performed By: #### 2 432-8, 2531-0 ####[facility] LABIA [id number] [place] [address] [place] Bilirubin [Mass/Vol] 0.4 mg/dL Normal 0.2-1.3 [facility] Comment on above: Order Comment: Speci men Type: BLOOD SPECIMENOrdering Facility: [facility] Address: [address] [place] [address] Performed By: #### 2 432-8, 2531-0 ####[facility] LABIA [id number] [place] [address] [place] Calcium [Mass/Vol] 8.4 mg/dL Low 8.5-10.2 [facility] Comment on above: Order Comment: Speci men Type: BLOOD SPECIMENOrdering Facility: [facility] Address: [address] [place] [address] Performed By: #### 2 432-8, 2531-0 ####[facility] LABIA [id number] [place] [id number] [place] Chloride [Moles/Vol] 106 mmol/L Normal 98-107 [facility] Comment on above: Order Comment: Speci men Type: BLOOD SPECIMENOrdering Facility: [facility] Address: [address] [place], [place] [address] Performed By: #### 2 432-8, 2531-0 ####[facility] LABCLIA [id number] [place] [address] [place] CO2 [Moles/Vol] 21 mmol/L Low 22-30 [facility] Comment on above: Order Comment: Speci men Type: BLOOD SPECIMENOrdering Facility: [facility] Address: [address] [place] [address] Performed By: #### 2 4323-8, 2531-0 ####[facility] LABIA [id number] [place] [address] [place] Creatinine [Mass/Vol] 1.25 mg/dL High 0.73-1.22 [facility] Comment on above: Order Comment: Speci men Type: BLOOD SPECIMENOrdering Facility: [facility] Address: [address] [place] [address] Performed By: #### 2 43238, 2531-0 ####[facility] LABIA [id number] [place] [address] [place] Creatinine and Glomerular filtration rate.predicted panel (S/P/Bld) 63 mL/min/1.73m??? Normal >=60 [facility] Comment on above: Order Comment: Speci men Type: BLOOD SPECIMENOrdering Facility: [facility] Address: [address] [place] [address] Result Comment: Carol mated Glomerular Filtration Rate [...] GFR. Performed By: #### 2 4323-8, 2531-0 ####[facility] LABIA [id number] [place] [id number] [place] Glucose [Mass/Vol] 95 mg/dL Normal 74-99 [facility] Comment on above: Order Comment: Sara randle Type: BLOOD SPECIMENOrdering Facility: [facility] Address: [address] [place] [address] Result Comment: The [place] [employer] (ADA) provides guidance for cutoff [...] Standards of Medical Care in Diabetes 2016, [place] [employer]. Diabetes Care. 2016.39(Suppl 1). Performed By: #### 2 4323-8, 2-0 ####[facility] LABCLIA [id number] [place] [address] [place] Potassium [Moles/Vol] 3.7 mmol/L Normal 3.7-5.1 [facility] Comment on above: Order Comment: Sara randle Type: BLOOD SPECIMENOrdering Facility: [facility] Address: [address] [place] [address] Performed By: #### 2 4323-8, 2531-0 ####[facility] LABCLIA [id number] [place] [address] [place] Protein [Mass/Vol] 5.7 g/dL Low 6.3-8.0 [facility] Comment on above: Order Comment: Sara randle Type: BLOOD SPECIMENOrdering Facility: [facility] Address: [address] [place] [address] Performed By: #### 2 4323-8, 2531-0 ####[facility] LABCLIA [id number] [place] [address] [place] Sodium [Moles/Vol] 139 mmol/L Normal 136-144 [facility] Comment on above: Order Comment: Speci men Type: BLOOD SPECIMENOrdering Facility: [facility] Address: [address] [place] [address] Performed By: #### 2 4323-8, 2531-0 ####[facility] LABIA [id number] [place] [address] [place] Urea nitrogen [Mass/Vol] 8 mg/dL Low 9-24 [facility] Comment on above: Order Comment: Speci men Type: BLOOD SPECIMENOrdering Facility: [facility] Address: [address] [place] [address] Performed By: #### 2 4323-8, 2531-0 ####[facility] LABIA [id number] [place] [address] [place] Ferritin SerPl-mCncon 2023 Ferritin [Mass/Vol] 649.0 ng/mL High 30.3-565.7 [facility] Comment on above: Order Comment: Speci men Type: BLOOD SPECIMENOrdering Facility: [facility] Address: [address] [place] [address] Performed By: #### 1 988-5, 78693-2, 2777-1, 3084-1, 2276-4 ####[facility] LABIA [id number] [place] [address] [place] LDH SerPl-cCncon 04-10-2024 LDH [Catalytic activity/Vol] 144 U/L Normal 135-225 [facility] Comment on above: Order Comment: Speci men Type: BLOOD SPECIMENOrdering Facility: [facility] Address: [address] [place] [address] Performed By: #### 2 4323-8, 0 ####[facility] LABIA [id number] [place] [address] [place] Magnesium SerPl-mCncon 04-10 Magnesium [Mass/Vol] 1.9 mg/dL Normal 1.7-2.3 [facility] Comment on above: Order Comment: Speci men Type: BLOOD SPECIMENOrdering Facility: [facility] Address: [address] [place], [place] [address] Performed By: #### 1 988-5, 99284-7, 7-1, 3084-1, 6-4 ####[facility] LABCLIA [id number] [place] [id number] [place] NURSING PROGon 04-10-2024 NURSING PROG Normal [facility] Phosphate SerPl-mCncon 04-10 Phosphate [Mass/Vol] 3.3 mg/dL Normal 2.7-4.8 [facility] Comment on above: Order Comment: Speci men Type: BLOOD SPECIMENOrdering Facility: [facility] Address: [address] [place] [address] Performed By: #### 1 988-5, 08714-7, 2776-1, 308-1, 2275-4 ####[facility] LABCLIA [id number] [place] [address] [place] Urate SerPl-mCncon Urate [Mass/Vol] 1.5 mg/dL Low 4.0-8.1 [facility] Comment on above: Order Comment: Speci men Type: BLOOD SPECIMENOrdering Facility: [facility] Address: [address] [place] [address] Performed By: #### 1 988-5, 49688-1, 7-1, 3084-1, 6-4 ####[facility] LABIA [id number] [place] [id number] [place] XR CHEST 1V FRONTAL PORTon 0 04-10-2024 XR CHEST 1V FRONTAL PORT Normal [facility] CBC W Auto Differential pane l (Bld)on 04-09-2024 Basophils (Bld) [#/Vol] Normal [facility] Comment on above: Order Comment: Speci men Type: BLOOD SPECIMENOrdering Facility: [facility] Address: [address] [place] [address] Result Comment: Too Few Cells To Do Differential. Performed By: #### 5 7021-8 ####[facility] LABCLIA [id number] [place] [address] [place] Basophils/100 WBC (Bld) Normal [facility] Comment on above: Order Comment: Speci men Type: BLOOD SPECIMENOrdering Facility: [facility] Address: [address] [place] [address] Result Comment: Too Few Cells To Do Differential. Performed By: #### 5 7021-8 ####[facility] LABCLIA [id number] [place] [address] [place] Differential cell count method Nom (Bld) Auto Normal [facility] Comment on above: Order Comment: Speci men Type: BLOOD SPECIMENOrdering Facility: [facility] Address: [address] [place] [address] Performed By: #### 5 7021-8 ####[facility] LABCLIA [id number] [place] [address] [place] Eosinophils (Bld) [#/Vol] Normal [facility] Comment on above: Order Comment: Speci men Type: BLOOD SPECIMENOrdering Facility: [facility] Address: [address] [place] [address] Result Comment: Too Few Cells To Do Differential. Performed By: #### 5 7021-8 ####[facility] LABCLIA [id number] [place] [address] [place] Eosinophils/100 WBC (Bld) Normal [facility] Comment on above: Order Comment: Speci men Type: BLOOD SPECIMENOrdering Facility: [facility] Address: [address] [place] [address] Result Comment: Too Few Cells To Do Differential. Performed By: #### 5 7021-8 ####[facility] LABCLIA [id number] [place] [address] [place] Erythrocyte distribution width (RBC) [Ratio] 13.4 % Normal 11.5-15.0 [facility] Comment on above: Order Comment: Speci men Type: BLOOD SPECIMENOrdering Facility: [facility] Address: [address] [place] [address] Performed By: #### 5 7021-8 ####[facility] LABCLIA [id number] [place] [address] [place] Hematocrit (Bld) [Volume fraction] 33.3 % Low 39.0-51.0 [facility] Comment on above: Order Comment: Speci men Type: BLOOD SPECIMENOrdering Facility: [facility] Address: [address] [place] [address] Performed By: #### 5 7021-8 ####[facility] LABIA [id number] [place] [address] [place] Hemoglobin (Bld) [Mass/Vol] 11.3 g/dL Low 13.0-17.0 [facility] Comment on above: Order Comment: Speci men Type: BLOOD SPECIMENOrdering Facility: [facility] Address: [address] [place] [address] Performed By: #### 5 7021-8 ####[facility] LABIA [id number] [place] [address] [place] Immature granulocytes (Bld) [#/Vol] Normal [facility] Comment on above: Order Comment: Speci men Type: BLOOD SPECIMENOrdering Facility: [facility] Address: [address] [place] [address] Result Comment: Too Few Cells To Do Differential. Performed By: #### 5 7021-8 ####[facility] LABIA [id number] [place] [address] [place] Immature granulocytes/100 WBC (Bld) Normal [facility] Comment on above: Order Comment: Speci men Type: BLOOD SPECIMENOrdering Facility: [facility] Address: [address] [place] [address] Result Comment: Too Few Cells To Do Differential. Performed By: #### 5 7021-8 ####[facility] LABCLIA [id number] [place] [address] [place] Lymphocytes (Bld) [#/Vol] Normal [facility] Comment on above: Order Comment: Speci men Type: BLOOD SPECIMENOrdering Facility: [facility] Address: [address] [place] [address] Result Comment: Too Few Cells To Do Differential. Performed By: #### 5 7021-8 ####[facility] LABCLIA [id number] [place] [address] [place] Lymphocytes/100 WBC (Bld) Normal [facility] Comment on above: Order Comment: Speci men Type: BLOOD SPECIMENOrdering Facility: [facility] Address: [address] [place] [address] Result Comment: Too Few Cells To Do Differential. Performed By: #### 5 7021-8 ####[facility] LABCLIA [id number] [place] [address] [place] MCH (RBC) [Entitic mass] 30.4 pg Normal 26.0-34.0 [facility] Comment on above: Order Comment: Speci men Type: BLOOD SPECIMENOrdering Facility: [facility] Address: [address] [place] [address] Performed By: #### 5 7021-8 ####[facility] LABCLIA [id number] [place] [address] [place] MCHC (RBC) [Mass/Vol] 33.9 g/dL Normal 30.5-36.0 [facility] Comment on above: Order Comment: Speci men Type: BLOOD SPECIMENOrdering Facility: [facility] Address: [address] [place] [address] Performed By: #### 5 7021-8 ####[facility] LABCLIA [id number] [place] [address] [place] MCV (RBC) [Entitic vol] 89.5 fL Normal 80.0-100.0 [facility] Comment on above: Order Comment: Speci men Type: BLOOD SPECIMENOrdering Facility: [facility] Address: [address] [place] [address] Performed By: #### 5 7021-8 ####[facility] LABCLIA [id number] [place] [address] [place] Monocytes (Bld) [#/Vol] Normal [facility] Comment on above: Order Comment: Speci men Type: BLOOD SPECIMENOrdering Facility: [facility] Address: [address] [place] [address] Result Comment: Too Few Cells To Do Differential. Performed By: #### 5 7021-8 ####[facility] LABCLIA [id number] [place] [address] [place] Monocytes/100 WBC (Bld) Normal [facility] Comment on above: Order Comment: Speci men Type: BLOOD SPECIMENOrdering Facility: [facility] Address: [address] [place] [address] Result Comment: Too Few Cells To Do Differential. Performed By: #### 5 7021-8 ####[facility] LABCLIA [id number] [place] [address] [place] Neutrophils (Bld) [#/Vol] Normal [facility] Comment on above: Order Comment: Speci men Type: BLOOD SPECIMENOrdering Facility: [facility] Address: [address] [place] [address] Result Comment: Too Few Cells To Do Differential. Performed By: #### 5 7021-8 ####[facility] LABCLIA [id number] [place] [address] [place] Neutrophils/100 WBC (Bld) Normal [facility] Comment on above: Order Comment: Speci men Type: BLOOD SPECIMENOrdering Facility: [facility] Address: [address] [place] [address] Result Comment: Too Few Cells To Do Differential. Performed By: #### 5 7021-8 ####[facility] LABCLIA [id number] [place] [address] [place] Nucleated RBC (Bld) [#/Vol] 10*3/uL Normal <0.01 [facility] Comment on above: Order Comment: Speci men Type: BLOOD SPECIMENOrdering Facility: [facility] Address: [address] [place] [address] Performed By: #### 5 7021-8 ####[facility] LABCLIA [id number] [place] [address] [place] Nucleated RBC/100 WBC (Bld) [Ratio] 0.0 /100 WBC Normal [facility] Comment on above: Order Comment: Speci men Type: BLOOD SPECIMENOrdering Facility: [facility] Address: [address] [place] [address] Performed By: #### 5 7021-8 ####[facility] LABCLIA [id number] [place] [address] [place] Platelet mean volume (Bld) [Entitic vol] 9.4 fL Normal 9.0-12.7 [facility] Comment on above: Order Comment: Speci men Type: BLOOD SPECIMENOrdering Facility: [facility] Address: [address] [place] [address] Performed By: #### 5 7021-8 ####[facility] LABCLIA [id number] [place] [address] [place] Platelets (Bld) [#/Vol] 81 10*3/uL Low 150-400 [facility] Comment on above: Order Comment: Speci men Type: BLOOD SPECIMENOrdering Facility: [facility] Address: [address] [place] [address] Result Comment: Resu lts checked and verified.No clot detected. Performed By: #### 5 7021-8 ####[facility] LABCLIA [id number] [place] [address] [place] RBC (Bld) [#/Vol] 3.72 10*6/uL Low 4.20-6.00 [facility] Comment on above: Order Comment: Speci men Type: BLOOD SPECIMENOrdering Facility: [facility] Address: [address] [place] [address] Performed By: #### 5 7021-8 ####[facility] LABCLIA [id number] [place] [address] [place] WBC (Bld) [#/Vol] 0.48 10*3/uL Low 3.70-11.00 [facility] Comment on above: Order Comment: Speci men Type: BLOOD SPECIMENOrdering Facility: [facility] Address: [address] [place] [address] Result Comment: Resu lts checked and verified.No clot detected. Performed By: #### 5 7021-8 ####[facility] LABCLIA [id number] [place] [address] [place] CRP SerPl-mCncon 04-09-2024 CRP [Mass/Vol] 11.8 mg/dL High <0.9 [facility] Comment on above: Order Comment: Speci men Type: BLOOD SPECIMENOrdering Facility: [facility] Address: [address] [place] [address] Performed By: #### 2 276-4, 26922-9, 2777-1, 3084-1, 1988- ####[facility] LABCLIA [id number] [place] [id number] [place] Comprehensive metabolic 2000 panelon 04-09-2024 Albumin [Mass/Vol] 3.4 g/dL Low 3.9-4.9 [facility] Comment on above: Order Comment: Speci men Type: BLOOD SPECIMENOrdering Facility: [facility] Address: [address] [place] [address] Performed By: #### 2 4323-8, 2531-0 ####[facility] LABCLIA [id number] [place] [facility] [place] [address] [place] ALP [Catalytic activity/Vol] 140 U/L High 38-113 [facility] Comment on above: Order Comment: Speci men Type: BLOOD SPECIMENOrdering Facility: [facility] Address: [address] [place] [address] Performed By: #### 2 4323-8, 2531-0 ####[facility] LABCLIA [id number] [place] [address] [place] ALT [Catalytic activity/Vol] 16 U/L Normal 10-54 [facility] Comment on above: Order Comment: Speci men Type: BLOOD SPECIMENOrdering Facility: [facility] Address: [address] [place] [address] Performed By: #### 2 4323-8, 2531-0 ####[facility] LABCLIA [id number] [facility] [place] [place] [address] [place] Anion gap [Moles/Vol] 9 mmol/L Normal 8-15 [facility] Comment on above: Order Comment: Speci men Type: BLOOD SPECIMENOrdering Facility: [facility] Address: [address] [place] [address] Performed By: #### 2 4323-8, 2532-0 ####[facility] LABCLIA [id number] [place] [address] [place] AST [Catalytic activity/Vol] 15 U/L Normal 14-40 [facility] Comment on above: Order Comment: Speci men Type: BLOOD SPECIMENOrdering Facility: [facility] Address: [address] [place] [address] Performed By: #### 2 4328, 2531-0 ####[facility] LABCLIA [id number] [place] [address] [place] Bilirubin [Mass/Vol] 0.4 mg/dL Normal 0.2-1.3 [facility] Comment on above: Order Comment: Speci men Type: BLOOD SPECIMENOrdering Facility: [facility] Address: [address] [place] [address] Performed By: #### 2 4328, 2531-0 ####[facility] LABCLIA [id number] [place] [address] [place] Calcium [Mass/Vol] 8.4 mg/dL Low 8.5-10.2 [facility] Comment on above: Order Comment: Speci men Type: BLOOD SPECIMENOrdering Facility: [facility] Address: [address] [place] [address] Performed By: #### 2 4328, 2531-0 ####[facility] LABCLIA [id number] [place] [address] [place] Chloride [Moles/Vol] 108 mmol/L High 98-107 [facility] Comment on above: Order Comment: Speci men Type: BLOOD SPECIMENOrdering Facility: [facility] Address: [address] [place], [place] [address] Performed By: #### 2 4328, 2531-0 ####[facility] LABCLIA [id number] [place] [id number] [place] CO2 [Moles/Vol] 23 mmol/L Normal 22-30 [facility] Comment on above: Order Comment: Speci men Type: BLOOD SPECIMENOrdering Facility: [facility] Address: [address] [place], [place] [address] Performed By: #### 2 4328, 2531-0 ####[facility] LABCLIA [id number] [place] [address] [place] Creatinine [Mass/Vol] 1.14 mg/dL Normal 0.73-1.22 [facility] Comment on above: Order Comment: Sara randle Type: BLOOD SPECIMENOrdering Facility: [facility] Address: [address] [place] [address] Performed By: #### 2 4323-8, 2531-0 ####[facility] [id number] [address] Creatinine and Glomerular filtration rate.predicted panel (S/P/Bld) 70 mL/min/1.73m??? Normal >=60 [facility] Comment on above: Order Comment: Sara randle Type: BLOOD SPECIMENOrdering Facility: [facility] Address: [address] [place] [address] Result Comment: Carol mated Glomerular Filtration Rate [...] GFR. Performed By: #### 2 4323-8, 0 ####[facility] LABIA [id number] [place] [address] [place] Glucose [Mass/Vol] 94 mg/dL Normal 74-99 [facility] Comment on above: Order Comment: Sara randle Type: BLOOD SPECIMENOrdering Facility: [facility] Address: [address] [place] [address] Result Comment: The [place] Diabetes [employer] (ADA) provides guidance for cutoff [...] Standards of Medical Care in Diabetes 2016, [place] [employer]. Diabetes Care. 2016.39(Suppl 1). Performed By: #### 2 43238, 2531-0 ####[facility] LABCLIA [id number] [place] [address] [place] Potassium [Moles/Vol] 3.9 mmol/L Normal 3.7-5.1 [facility] Comment on above: Order Comment: Speci men Type: BLOOD SPECIMENOrdering Facility: [facility] Address: [address] [place] [address] Performed By: #### 2 4328, 0 ####[facility] LABCLIA [id number] [place] [address] [place] Protein [Mass/Vol] 5.5 g/dL Low 6.3-8.0 [facility] Comment on above: Order Comment: Speci men Type: BLOOD SPECIMENOrdering Facility: [facility] Address: [address] [place] [address] Performed By: #### 2 4328, 0 ####[facility] LABCLIA [id number] [place] [address] [place] Sodium [Moles/Vol] 140 mmol/L Normal 136-144 [facility] Comment on above: Order Comment: Speci men Type: BLOOD SPECIMENOrdering Facility: [facility] Address: [address] [place] [address] Performed By: #### 2 4328, 0 ####[facility] LABCLIA [id number] [address] [address] [place] Urea nitrogen [Mass/Vol] 11 mg/dL Normal 9-24 [facility] Comment on above: Order Comment: Speci men Type: BLOOD SPECIMENOrdering Facility: [facility] Address: [address] [place], [place] [address] Performed By: #### 2 4323-8, 2532-0 ####[facility] LABCLIA [id number] [place] [id number] [place] Ferritin SerPl-mCncon 2023 Ferritin [Mass/Vol] 522.0 ng/mL Normal 30.3-565.7 [facility] Comment on above: Order Comment: Speci men Type: BLOOD SPECIMENOrdering Facility: [facility] Address: [address] [place] [address] Performed By: #### 2 276-4, 37213-2, 2776-11, 3083-11, 1988-03 ####[facility] LABCLIA [id number] [place] [address] [place] LDH SerPl-cCncon 04-09-2024 LDH [Catalytic activity/Vol] 133 U/L Low 135-225 [facility] Comment on above: Order Comment: Speci men Type: BLOOD SPECIMENOrdering Facility: [facility] Address: [address] [place] [address] Performed By: #### 2 4323-8, 2532-0 ####[facility] LABCLIA [id number] [place] [address] [place] MEDICAL EMERon 04-09-2024 MEDICAL FILOMENA Normal [facility] Magnesium SerPl-mCncon 04-09 Magnesium [Mass/Vol] 2.1 mg/dL Normal 1.7-2.3 [facility] Comment on above: Order Comment: Speci men Type: BLOOD SPECIMENOrdering Facility: [facility] Address: [address] [place] [address] Performed By: #### 2 276-4, 85271-7, 2776-1, 3083-11, 1988-03 ####[facility] LABCLIA [id number] [place] [id number] [place] Phosphate SerPl-ncon 04-09 Phosphate [Mass/Vol] 2.7 mg/dL Normal 2.7-4.8 [facility] Comment on above: Order Comment: Speci men Type: BLOOD SPECIMENOrdering Facility: [facility] Address: [address] [place] [address] Performed By: #### 2 276-4, 07287-1, 2776-1, 3083-11, 1988-03 ####[facility] LABCLIA [id number] [place] [id number] [place] Urate [facility] Urate [Mass/Vol] 1.8 mg/dL Low 4.0-8.1 [facility] Comment on above: Order Comment: Speci men Type: BLOOD SPECIMENOrdering Facility: [facility] Address: [address] [place] [address] Performed By: #### 2 276-4, 69167-9, 2776-1, 3083-11, 1988-03 ####[facility] LABCLIA [id number] [place] [id number] [place] Bacteria Bld Culton 04-08-20 24 Bacteria identified Cx Nom (Bld) CULTURE, BLOOD: No growth 5 days Normal [facility] Comment on above: Performed By: #### 6 00-7 ####[facility] LABCLIA [id number] [place] [id number] [place] Bacteria identified Cx Nom (Bld) CULTURE, BLOOD: No growth 5 days Normal [facility] Comment on above: Performed By: #### 6 00-7 ####[facility] LABCLIA [id number] [place] [id number] [place] CASE MANAGEMon 04-08-2024 CASE MANAGEM Normal [facility] CBC W Auto Differential pane l (Bld)on 04-08-2024 Basophils (Bld) [#/Vol] 0.00 10*3/uL Normal <0.11 [facility] Comment on above: Order Comment: Speci men Type: BLOOD SPECIMENOrdering Facility: [facility] Address: [address] [place] [address] Performed By: #### 5 7021-8 ####[facility] LABCLIA [id number] [place] [address] [place] Basophils/100 WBC (Bld) 0.0 % Normal [facility] Comment on above: Order Comment: Speci men Type: BLOOD SPECIMENOrdering Facility: [facility] Address: [address] [place] [address] Performed By: #### 5 7021-8 ####[facility] LABCLIA [id number] [place] [address] [place] Differential cell count method Nom (Bld) Manual Normal [facility] Comment on above: Order Comment: Speci men Type: BLOOD SPECIMENOrdering Facility: [facility] Address: [address] [place] [address] Performed By: #### 5 7021-8 ####[facility] LABCLIA [id number] [place] [address] [place] Eosinophils (Bld) [#/Vol] 0.03 10*3/uL Normal <0.46 [facility] Comment on above: Order Comment: Speci men Type: BLOOD SPECIMENOrdering Facility: [facility] Address: [address] [place] [address] Performed By: #### 5 7021-8 ####[facility] LABCLIA [id number] [place] [address] [place] Eosinophils/100 WBC (Bld) 0.9 % Normal [facility] Comment on above: Order Comment: Speci men Type: BLOOD SPECIMENOrdering Facility: [facility] Address: [address] [place] [address] Performed By: #### 5 7021-8 ####[facility] LABCLIA [id number] [place] [address] [place] Erythrocyte distribution width (RBC) [Ratio] 13.4 % Normal 11.5-15.0 [facility] Comment on above: Order Comment: Speci men Type: BLOOD SPECIMENOrdering Facility: [facility] Address: [address] [place] [address] Performed By: #### 5 7021-8 ####[facility] LABIA [id number] [place] [address] [place] Hematocrit (Bld) [Volume fraction] 35.3 % Low 39.0-51.0 [facility] Comment on above: Order Comment: Speci men Type: BLOOD SPECIMENOrdering Facility: [facility] Address: [address] [place] [address] Performed By: #### 5 7021-8 ####[facility] LABIA [id number] [place] [address] [place] Hemoglobin (Bld) [Mass/Vol] 12.2 g/dL Low 13.0-17.0 [facility] Comment on above: Order Comment: Speci men Type: BLOOD SPECIMENOrdering Facility: [facility] Address: [address] [place] [address] Performed By: #### 5 7021-8 ####[facility] LABIA [id number] [place] [address] [place] Lymphocytes (Bld) [#/Vol] 0.00 10*3/uL Low 1.00-4.00 [facility] Comment on above: Order Comment: Speci men Type: BLOOD SPECIMENOrdering Facility: [facility] Address: [address] [place] [address] Performed By: #### 5 7021-8 ####[facility] LABIA [id number] [place] [address] [place] Lymphocytes/100 WBC (Bld) 0.0 % Normal [facility] Comment on above: Order Comment: Speci men Type: BLOOD SPECIMENOrdering Facility: [facility] Address: [address] [place] [address] Performed By: #### 5 7021-8 ####[facility] LABCLIA [id number] [place] [address] [place] MCH (RBC) [Entitic mass] 30.5 pg Normal 26.0-34.0 [facility] Comment on above: Order Comment: Speci men Type: BLOOD SPECIMENOrdering Facility: [facility] Address: [address] [place] [address] Performed By: #### 5 7021-8 ####[facility] LABCLIA [id number] [place] [address] [place] MCHC (RBC) [Mass/Vol] 34.6 g/dL Normal 30.5-36.0 [facility] Comment on above: Order Comment: Speci men Type: BLOOD SPECIMENOrdering Facility: [facility] Address: [address] [place] [address] Performed By: #### 5 7021-8 ####[facility] LABIA [id number] [place] [address] [place] MCV (RBC) [Entitic vol] 88.3 fL Normal 80.0-100.0 [facility] Comment on above: Order Comment: Speci men Type: BLOOD SPECIMENOrdering Facility: [facility] Address: [address] [place] [address] Performed By: #### 5 7021-8 ####[facility] LABCLIA [id number] [place] [address] [place] Monocytes (Bld) [#/Vol] 0.00 10*3/uL Normal <0.87 [facility] Comment on above: Order Comment: Speci men Type: BLOOD SPECIMENOrdering Facility: [facility] Address: [address] [place] [address] Performed By: #### 5 7021-8 ####[facility] LABCLIA [id number] [place] [address] [place] Monocytes/100 WBC (Bld) 0.0 % Normal [facility] Comment on above: Order Comment: Speci men Type: BLOOD SPECIMENOrdering Facility: [facility] Address: [address] [place] [address] Performed By: #### 5 7021-8 ####[facility] LABCLIA [id number] [place] [address] [place] Neutrophils (Bld) [#/Vol] 3.21 10*3/uL Normal 1.45-7.50 [facility] Comment on above: Order Comment: Speci men Type: BLOOD SPECIMENOrdering Facility: [facility] Address: [address] [place] [address] Performed By: #### 5 7021-8 ####[facility] LABCLIA [id number] [place] [address] [place] Neutrophils/100 WBC (Bld) 99.1 % Normal [facility] Comment on above: Order Comment: Speci men Type: BLOOD SPECIMENOrdering Facility: [facility] Address: [address] [place] [address] Performed By: #### 5 7021-8 ####[facility] LABCLIA [id number] [place] [address] [place] Nucleated RBC (Bld) [#/Vol] 10*3/uL Normal <0.01 [facility] Comment on above: Order Comment: Speci men Type: BLOOD SPECIMENOrdering Facility: [facility] Address: [address] [place] [address] Performed By: #### 5 7021-8 ####[facility] LABCLIA [id number] [place] [address] [place] Nucleated RBC/100 WBC (Bld) [Ratio] 0.0 /100 WBC Normal [facility] Comment on above: Order Comment: Speci men Type: BLOOD SPECIMENOrdering Facility: [facility] Address: [address] [place] [address] Performed By: #### 5 7021-8 ####[facility] LABCLIA [id number] [place] [address] [place] Ovalocytes LM Ql (Bld) Few Normal [facility] Comment on above: Order Comment: Speci men Type: BLOOD SPECIMENOrdering Facility: [facility] Address: [address] [place] [address] Performed By: #### 5 7021-8 ####[facility] LABCLIA [id number] [place] [address] [place] Platelet mean volume (Bld) [Entitic vol] 9.4 fL Normal 9.0-12.7 [facility] Comment on above: Order Comment: Speci men Type: BLOOD SPECIMENOrdering Facility: [facility] Address: [address] [place] [address] Performed By: #### 5 7021-8 ####[facility] LABCLIA [id number] [place] [address] [place] Platelets (Bld) [#/Vol] 97 10*3/uL Low 150-400 [facility] Comment on above: Order Comment: Speci men Type: BLOOD SPECIMENOrdering Facility: [facility] Address: [address] [place] [address] Result Comment: No c lot detected. Performed By: #### 5 7021-8 ####[facility] LABCLIA [id number] [place] [address] [place] Platelets Estimate (Bld) [#/Vol] Decreased Normal [facility] Comment on above: Order Comment: Speci men Type: BLOOD SPECIMENOrdering Facility: [facility] Address: [address] [place], [place] [address] Performed By: #### 5 7021-8 ####[facility] LABCLIA [id number] [address] [address] [place] RBC (Bld) [#/Vol] 4.00 10*6/uL Low 4.20-6.00 [facility] Comment on above: Order Comment: Speci men Type: BLOOD SPECIMENOrdering Facility: [facility] Address: [address] [place] [address] Performed By: #### 5 7021-8 ####[facility] LABIA [id number] [place] [address] [place] RED CELL MORPH Reviewed: see result s of individual morphologies Normal [facility] Comment on above: Order Comment: Speci men Type: BLOOD SPECIMENOrdering Facility: [facility] Address: [address] [place] [address] Performed By: #### 5 7021-8 ####[facility] LABIA [id number] [place] [id number] [place] WBC (Bld) [#/Vol] 3.24 10*3/uL Low 3.70-11.00 [facility] Comment on above: Order Comment: Speci men Type: BLOOD SPECIMENOrdering Facility: [facility] Address: [address] [place] [address] Performed By: #### 5 7021-8 ####[facility] LABCLIA [id number] [place] [id number] [place] CRP SerPl-ncon 04-08-2024 CRP [Mass/Vol] 5.6 mg/dL High <0.9 [facility] Comment on above: Order Comment: Speci men Type: BLOOD SPECIMENOrdering Facility: [facility] Address: [address] [place] [address] Performed By: #### 1 988-5, 01788-4, 3084-1, 2777-1, 2276-4 ####[facility] LABCLIA [id number] [place] [address] [place] Comprehensive metabolic 2000 panelon 04-08-2024 Albumin [Mass/Vol] 3.9 g/dL Normal 3.9-4.9 [facility] Comment on above: Order Comment: Speci men Type: BLOOD SPECIMENOrdering Facility: [facility] Address: [address] [place] [address] Performed By: #### 2 4323-8, 2531-0 ####[facility] LABCLIA [id number] [place] [address] [place] ALP [Catalytic activity/Vol] 172 U/L High 38-113 [facility] Comment on above: Order Comment: Speci men Type: BLOOD SPECIMENOrdering Facility: [facility] Address: [address] [place] [address] Performed By: #### 2 432-8, 2531-0 ####[facility] LABCLIA [id number] [place] [address] [place] ALT [Catalytic activity/Vol] 15 U/L Normal 10-54 [facility] Comment on above: Order Comment: Speci men Type: BLOOD SPECIMENOrdering Facility: [facility] Address: [address] [place] [address] Performed By: #### 2 432-8, 2531-0 ####[facility] LABCLIA [id number] [place] [id number] [place] Anion gap [Moles/Vol] 10 mmol/L Normal 8-15 [facility] Comment on above: Order Comment: Speci men Type: BLOOD SPECIMENOrdering Facility: [facility] Address: [address] [place] [address] Performed By: #### 2 4323-8, 2532-0 ####[facility] LABCLIA [id number] [place] [address] [place] AST [Catalytic activity/Vol] 16 U/L Normal 14-40 [facility] Comment on above: Order Comment: Speci men Type: BLOOD SPECIMENOrdering Facility: [facility] Address: [address] [place] [address] Performed By: #### 2 4323-8, 2532-0 ####[facility] LABCLIA [id number] [place] [address] [place] Bilirubin [Mass/Vol] 0.7 mg/dL Normal 0.2-1.3 [facility] Comment on above: Order Comment: Speci men Type: BLOOD SPECIMENOrdering Facility: [facility] Address: [address] [place] [address] Performed By: #### 2 4323-8, 2532-0 ####[facility] LABCLIA [id number] [place] [address] [place] Calcium [Mass/Vol] 8.6 mg/dL Normal 8.5-10.2 [facility] Comment on above: Order Comment: Speci men Type: BLOOD SPECIMENOrdering Facility: [facility] Address: [address] [place] [address] Performed By: #### 2 4323-8, 2-0 ####[facility] LABCLIA [id number] [place] [address] [place] Chloride [Moles/Vol] 102 mmol/L Normal 98-107 [facility] Comment on above: Order Comment: Speci men Type: BLOOD SPECIMENOrdering Facility: [facility] Address: [address] [place] [address] Performed By: #### 2 4323-8, 2532-0 ####[facility] LABCLIA [id number] [place] [address] [place] CO2 [Moles/Vol] 22 mmol/L Normal 22-30 [facility] Comment on above: Order Comment: Speci men Type: BLOOD SPECIMENOrdering Facility: [facility] Address: [address] [place] [address] Performed By: #### 2 4323-8, 0 ####[facility] LABCLIA [id number] [place] [address] [place] Creatinine [Mass/Vol] 1.02 mg/dL Normal 0.73-1.22 [facility] Comment on above: Order Comment: Speci men Type: BLOOD SPECIMENOrdering Facility: [facility] Address: [address] [place] [address] Performed By: #### 2 43238, ####[facility] LABIA [id number] [place] [address] [place] Creatinine and Glomerular filtration rate.predicted panel (S/P/Bld) 81 mL/min/1.73m??? Normal >=60 [facility] Comment on above: Order Comment: Speci men Type: BLOOD SPECIMENOrdering Facility: [facility] Address: [address] [place] [address] Result Comment: Carol mated Glomerular Filtration Rate [...] GFR. Performed By: #### 2 4323-8, 0 ####[facility] LABIA [id number] [place] [address] [place] Glucose [Mass/Vol] 96 mg/dL Normal 74-99 [facility] Comment on above: Order Comment: Speci men Type: BLOOD SPECIMENOrdering Facility: [facility] Address: [address] [place] [address] Result Comment: The [place] [employer] (ADA) provides guidance for cutoff [...] Standards of Medical Care in Diabetes 2016, [place] [employer]. Diabetes Care. 2016.39(Suppl 1). Performed By: #### 2 4328, 0 ####[facility] LABCLIA [id number] [place] [address] [place] [place] Potassium [Moles/Vol] 3.8 mmol/L Normal 3.7-5.1 [facility] Comment on above: Order Comment: Speci men Type: BLOOD SPECIMENOrdering Facility: [facility] Address: [address] [place] [address] Performed By: #### 2 43201-08, ####[facility] LABCLIA [id number] [place] [address] [place] Protein [Mass/Vol] 5.8 g/dL Low 6.3-8.0 [facility] Comment on above: Order Comment: Speci men Type: BLOOD SPECIMENOrdering Facility: [facility] Address: [address] [place] [address] Performed By: #### 2 4328, 0 ####[facility] LABCLIA [id number] [place] [address] [place] Sodium [Moles/Vol] 134 mmol/L Low 136-144 [facility] Comment on above: Order Comment: Speci men Type: BLOOD SPECIMENOrdering Facility: [facility] Address: [address] [place] [address] Performed By: #### 2 43201-08, 2531-0 ####[facility] LABIA [id number] [place] [id number] [place] Urea nitrogen [Mass/Vol] 12 mg/dL Normal 9-24 [facility] Comment on above: Order Comment: Speci men Type: BLOOD SPECIMENOrdering Facility: [facility] Address: [address] [place] [address] Performed By: #### 2 4323-8, 2531-0 ####[facility] [id number] [place] [id number] [place] Ferritin SerPl-mCncon 2023 Ferritin [Mass/Vol] 433.0 ng/mL Normal 30.3-565.7 [facility] Comment on above: Order Comment: Speci men Type: BLOOD SPECIMENOrdering Facility: [facility] Address: [address] [place] [address] Performed By: #### 1 988-5, 65922-6, 3084-1, 2777-1, 2276-4 ####[facility] [id number] [place] [address] [place] LDH SerPl-cCncon 04-08-2024 LDH [Catalytic activity/Vol] 167 U/L Normal 135-225 [facility] Comment on above: Order Comment: Speci men Type: BLOOD SPECIMENOrdering Facility: [facility] Address: [address] [place] [address] Performed By: #### 2 4323-8, 2531-0 ####[facility] [id number] [place] [id number] [place] Magnesium SerPl-mCncon 04-08 Magnesium [Mass/Vol] 1.9 mg/dL Normal 1.7-2.3 [facility] Comment on above: Order Comment: Speci men Type: BLOOD SPECIMENOrdering Facility: [facility] Address: [address] [place] [address] Performed By: #### 1 988-5, 01313-3, 3084-1, 2777-1, 2276-4 ####[facility] LABCLIA [id number] [place] [address] [place] NURSING PROGon 04-08-2024 NURSING PROG Normal [facility] Phosphate SerPl-mCncon 04-08 Phosphate [Mass/Vol] 3.0 mg/dL Normal 2.7-4.8 [facility] Comment on above: Order Comment: Speci men Type: BLOOD SPECIMENOrdering Facility: [facility] Address: [address] [place] [address] Performed By: #### 1 988-5, 25029-0, 3084-1, 2777-1, 2276-4 ####[facility] LABCLIA [id number] [address] [place] SEPSIS LACTATEon 04-08-2024 Lactate [Moles/Vol] 0.9 mmol/L Normal <=2.0 [facility] Comment on above: Order Comment: Speci men Type: BLOOD SPECIMENOrdering Facility: [facility] Address: [address] [place] [address] Performed By: #### S LACT ####[facility] LABCLIA [id number] [place] [address] [place] SOCIAL WORKon 04-08-2024 SOCIAL WORK Normal [facility] TYPE + SCREENon 04-08-2024 ABO B Normal [facility] Comment on above: Order Comment: Speci men Type: BLOOD SPECIMENOrdering Facility: [facility] Address: [address] [place] [address] Performed By: #### T SCR ####[facility] BLOOD BANKCLIA [id number] [place] [address] [place] HISTORICAL AB SCR STATUS Negative Normal [facility] Comment on above: Order Comment: Speci men Type: BLOOD SPECIMENOrdering Facility: [facility] Address: [address] [place] [address] Performed By: #### T SCR ####[facility] BLOOD BANKIA [id number] [place] [id number] [place] Rh Nom (Bld) Negative Normal [facility] Comment on above: Order Comment: Speci men Type: BLOOD SPECIMENOrdering Facility: [facility] Address: [address] [place] [address] Performed By: #### T SCR ####[facility] BLOOD [facility]ANKGIFF[facility] [id number] [address] TYPE AND SCREEN EXPIRATION 04/11/2024 23:59 Normal [facility] Comment on above: Order Comment: Speci men Type: BLOOD SPECIMENOrdering Facility: [facility] Address: [address] [place] [address] Performed By: #### T SCR ####[facility] BLOOD [facility]ANKGIFF[facility] [id number] [place] [id number] [place] Urate SerPl-mCncon Urate [Mass/Vol] 3.1 mg/dL Low 4.0-8.1 [facility] Comment on above: Order Comment: Speci men Type: BLOOD SPECIMENOrdering Facility: [facility] Address: [address] [place] [address] Performed By: #### 1 988-5, 70755-3, 3084-1, 2777-1, 2276-4 ####[facility] LABCLIA [id number] [place] [id number] [place] Urinalysis complete panel (U )on 04-08-2024 Bacteria LM.HPF (Urine sed) [#/Area] Negative Normal Negative [facility] Comment on above: Order Comment: Speci men Type: URINE SPECIMENOrdering Facility: [facility] Address: [address] [place] [address] Performed By: #### 2 4356-8 ####[facility] LABCLIA [id number] [place] [address] [place] Bilirubin Ql (U) Negative Normal Negative [facility] Comment on above: Order Comment: Speci men Type: URINE SPECIMENOrdering Facility: [facility] Address: [address] [place] [address] Performed By: #### 2 4356-8 ####[facility] LABCLIA [id number] [place] [address] [place] Clarity (Unsp spec) Clear Normal Clear [facility] Comment on above: Order Comment: Speci men Type: URINE SPECIMENOrdering Facility: [facility] Address: [address] [place] [address] Performed By: #### 2 4356-8 ####[facility] LABCLIA [id number] [place] [address] [place] [facility] Color (U) Yellow Normal Yellow [facility] Comment on above: Order Comment: Speci men Type: URINE SPECIMENOrdering Facility: [facility] Address: [address] [place] [address] Performed By: #### 2 4356-8 ####[facility] LABCLIA [id number] [place] [address] [place] Epithelial cells LM.HPF (Urine sed) [#/Area] None Seen Normal [facility] Comment on above: Order Comment: Speci men Type: URINE SPECIMENOrdering Facility: [facility] Address: [address] [place] [address] Performed By: #### 2 4356-8 ####[facility] LABCLIA [id number] [place] [address] [place] Glucose Test strip (U) [Mass/Vol] Negative Normal Negative [facility] Comment on above: Order Comment: Speci men Type: URINE SPECIMENOrdering Facility: [facility] Address: [address] [place] [address] Performed By: #### 2 4356-8 ####[facility] LABCLIA [id number] [place] [address] [place] Hemoglobin Ql (U) Negative Normal Negative [facility] Comment on above: Order Comment: Speci men Type: URINE SPECIMENOrdering Facility: [facility] Address: [address] [place] [address] Performed By: #### 2 4356-8 ####[facility] LABCLIA [id number] [place] [address] [place] Hyaline casts (Urine sed) [#/Area] 0 /[LPF] Normal 0 /LPF [facility] Comment on above: Order Comment: Speci men Type: URINE SPECIMENOrdering Facility: [facility] Address: [address] [place] [address] Performed By: #### 2 4356-8 ####[facility] LABCLIA [id number] [place] [address] [place] Ketones Ql (U) Negative Normal Negative [facility] Comment on above: Order Comment: Speci men Type: URINE SPECIMENOrdering Facility: [facility] Address: [address] [place] [address] Performed By: #### 2 4356-8 ####[facility] LABCLIA [id number] [place] [address] [place] Leukocyte esterase Test strip Ql (U) Negative Normal Negative [facility] Comment on above: Order Comment: Speci men Type: URINE SPECIMENOrdering Facility: [facility] Address: [address] [place] [address] Performed By: #### 2 4356-8 ####[facility] LABCLIA [id number] [place] [address] [place] Nitrite Ql (U) Negative Normal Negative [facility] Comment on above: Order Comment: Speci men Type: URINE SPECIMENOrdering Facility: [facility] Address: [address] [place] [address] Performed By: #### 2 4356-8 ####[facility] LABIA [id number] [place] [address] [place] pH (U) 5.5 [pH] Normal <8.5 [facility] Comment on above: Order Comment: Speci men Type: URINE SPECIMENOrdering Facility: [facility] Address: [address] [place] [address] Performed By: #### 2 4356-8 ####[facility] LABIA [id number] [place] [address] [place] Protein (U) [Mass/Vol] Negative Normal Negative [facility] Comment on above: Order Comment: Speci men Type: URINE SPECIMENOrdering Facility: [facility] Address: [address] [place] [address] Performed By: #### 2 4356-8 ####[facility] LABIA [id number] [place] [address] [place] RBC LM.HPF (Urine sed) [#/Area] 0-2 /HPF Normal 0-2 /HPF [facility] Comment on above: Order Comment: Speci men Type: URINE SPECIMENOrdering Facility: [facility] Address: [address] [place] [address] Performed By: #### 2 4356-8 ####[facility] LABIA [id number] [place] [address] [place] Specific gravity (U) [Rel density] 1.021 Normal 1.005-1.03 0 [facility] Comment on above: Order Comment: Speci men Type: URINE SPECIMENOrdering Facility: [facility] Address: [address] [place] [address] Performed By: #### 2 4356-8 ####[facility] LABCLIA [id number] [place] [address] [place] Urobilinogen Ql (U) 0.2 EU/dL Normal 0.2-1.0 EU/dL [facility] Comment on above: Order Comment: Speci men Type: URINE SPECIMENOrdering Facility: [facility] Address: [address] [place] [address] Performed By: #### 2 4356-8 ####[facility] LABCLIA [id number] [place] [address] [place] WBC LM.HPF (Urine sed) [#/Area] 0-5 /HPF Normal 0-5 /HPF [facility] Comment on above: Order Comment: Speci men Type: URINE SPECIMENOrdering Facility: [facility] Address: [address] [place] [address] Performed By: #### 2 4356-8 ####[facility] LABCLIA [id number] [place] [address] [place] XR CHEST 1V FRONTAL PORTon 0 04-08-2024 XR CHEST 1V FRONTAL PORT Normal [facility] ALLIED HEALTHon 04-07-2024 ALLIED HEALTH Normal [facility] CASE MGT INIT ASSESon 2023 CASE MGT INIT ASSES Normal [facility] CBC W Auto Differential pane l (Bld)on 04-07-2024 Basophils (Bld) [#/Vol] 10*3/uL Normal <0.11 [facility] Comment on above: Order Comment: Speci men Type: BLOOD SPECIMENOrdering Facility: [facility] Address: [address] [place] [address] Performed By: #### 5 7021-8 ####[facility] LABCLIA [id number] [place] [address] [place] Basophils/100 WBC (Bld) 0.0 % Normal [facility] Comment on above: Order Comment: Speci men Type: BLOOD SPECIMENOrdering Facility: [facility] Address: [address] [place] [address] Performed By: #### 5 7021-8 ####[facility] LABCLIA [id number] [place] [address] [place] Differential cell count method Nom (Bld) Auto Normal [facility] Comment on above: Order Comment: Speci men Type: BLOOD SPECIMENOrdering Facility: [facility] Address: [address] [place] [address] Performed By: #### 5 7021-8 ####[facility] LABCLIA [id number] [place] [address] [place] Eosinophils (Bld) [#/Vol] 0.06 10*3/uL Normal <0.46 [facility] Comment on above: Order Comment: Speci men Type: BLOOD SPECIMENOrdering Facility: [facility] Address: [address] [place] [address] Performed By: #### 5 7021-8 ####[facility] LABIA [id number] [place] [address] [place] Eosinophils/100 WBC (Bld) 2.1 % Normal [facility] Comment on above: Order Comment: Speci men Type: BLOOD SPECIMENOrdering Facility: [facility] Address: [address] [place] [address] Performed By: #### 5 7021-8 ####[facility] LABIA [id number] [place] [address] [place] Erythrocyte distribution width (RBC) [Ratio] 13.5 % Normal 11.5-15.0 [facility] Comment on above: Order Comment: Speci men Type: BLOOD SPECIMENOrdering Facility: [facility] Address: [address] [place] [address] Performed By: #### 5 7021-8 ####[facility] LABCLIA [id number] [place] [address] [place] Hematocrit (Bld) [Volume fraction] 35.4 % Low 39.0-51.0 [facility] Comment on above: Order Comment: Speci men Type: BLOOD SPECIMENOrdering Facility: [facility] Address: [address] [place] [address] Performed By: #### 5 7021-8 ####[facility] LABCLIA [id number] [place] [address] [place] Hemoglobin (Bld) [Mass/Vol] 12.0 g/dL Low 13.0-17.0 [facility] Comment on above: Order Comment: Speci men Type: BLOOD SPECIMENOrdering Facility: [facility] Address: [address] [place] [address] Performed By: #### 5 7021-8 ####[facility] LABIA [id number] [place] [address] [place] Immature granulocytes (Bld) [#/Vol] 10*3/uL Normal <0.10 [facility] Comment on above: Order Comment: Speci men Type: BLOOD SPECIMENOrdering Facility: [facility] Address: [address] [place] [address] Performed By: #### 5 7021-8 ####[facility] LABIA [id number] [place] [address] [place] Immature granulocytes/100 WBC (Bld) 0.7 % Normal [facility] Comment on above: Order Comment: Speci men Type: BLOOD SPECIMENOrdering Facility: [facility] Address: [address] [place] [address] Performed By: #### 5 7021-8 ####[facility] LABIA [id number] [place] [address] [place] Lymphocytes (Bld) [#/Vol] 10*3/uL Low 1.00-4.00 [facility] Comment on above: Order Comment: Speci men Type: BLOOD SPECIMENOrdering Facility: [facility] Address: [address] [place] [address] Performed By: #### 5 7021-8 ####[facility] LABCLIA [id number] [place] [address] [place] Lymphocytes/100 WBC (Bld) 0.3 % Normal [facility] Comment on above: Order Comment: Speci men Type: BLOOD SPECIMENOrdering Facility: [facility] Address: [address] [place] [address] Performed By: #### 5 7021-8 ####[facility] LABCLIA [id number] [place] [address] [place] MCH (RBC) [Entitic mass] 31.3 pg Normal 26.0-34.0 [facility] Comment on above: Order Comment: Speci men Type: BLOOD SPECIMENOrdering Facility: [facility] Address: [address] [place] [address] Performed By: #### 5 7021-8 ####[facility] LABIA [id number] [place] [address] [place] MCHC (RBC) [Mass/Vol] 33.9 g/dL Normal 30.5-36.0 [facility] Comment on above: Order Comment: Speci men Type: BLOOD SPECIMENOrdering Facility: [facility] Address: [address] [place] [address] Performed By: #### 5 7021-8 ####[facility] LABIA [id number] [place] [address] [place] MCV (RBC) [Entitic vol] 92.2 fL Normal 80.0-100.0 [facility] Comment on above: Order Comment: Speci men Type: BLOOD SPECIMENOrdering Facility: [facility] Address: [address] [place] [address] Performed By: #### 5 7021-8 ####[facility] LABIA [id number] [place] [address] [place] Monocytes (Bld) [#/Vol] 10*3/uL Normal <0.87 [facility] Comment on above: Order Comment: Speci men Type: BLOOD SPECIMENOrdering Facility: [facility] Address: [address] [place] [address] Performed By: #### 5 7021-8 ####[facility] LABCLIA [id number] [place] [address] [place] Monocytes/100 WBC (Bld) 0.3 % Normal [facility] Comment on above: Order Comment: Speci men Type: BLOOD SPECIMENOrdering Facility: [facility] Address: [address] [place] [address] Performed By: #### 5 7021-8 ####[facility] LABCLIA [id number] [place] [address] [place] Neutrophils (Bld) [#/Vol] 2.82 10*3/uL Normal 1.45-7.50 [facility] Comment on above: Order Comment: Speci men Type: BLOOD SPECIMENOrdering Facility: [facility] Address: [address] [place] [address] Performed By: #### 5 7021-8 ####[facility] LABCLIA [id number] [place] [address] [place] Neutrophils/100 WBC (Bld) 96.6 % Normal [facility] Comment on above: Order Comment: Speci men Type: BLOOD SPECIMENOrdering Facility: [facility] Address: [address] [place] [address] Performed By: #### 5 7021-8 ####[facility] LABCLIA [id number] [place] [address] [place] Nucleated RBC (Bld) [#/Vol] 10*3/uL Normal <0.01 [facility] Comment on above: Order Comment: Speci men Type: BLOOD SPECIMENOrdering Facility: [facility] Address: [address] [place] [address] Performed By: #### 5 7021-8 ####[facility] LABCLIA [id number] [place] [address] [place] Nucleated RBC/100 WBC (Bld) [Ratio] 0.0 /100 WBC Normal [facility] Comment on above: Order Comment: Speci men Type: BLOOD SPECIMENOrdering Facility: [facility] Address: [address] [place] [address] Performed By: #### 5 7021-8 ####[facility] LABIA [id number] [place] [address] [place] Platelet mean volume (Bld) [Entitic vol] 9.7 fL Normal 9.0-12.7 [facility] Comment on above: Order Comment: Speci men Type: BLOOD SPECIMENOrdering Facility: [facility] Address: [address] [place] [address] Performed By: #### 5 7021-8 ####[facility] LABCLIA [id number] [place] [address] [place] Platelets (Bld) [#/Vol] 116 10*3/uL Low 150-400 [facility] Comment on above: Order Comment: Speci men Type: BLOOD SPECIMENOrdering Facility: [facility] Address: [address] [place] [address] Performed By: #### 5 7021-8 ####[facility] LABCLIA [id number] [place] [id number] [place] RBC (Bld) [#/Vol] 3.84 10*6/uL Low 4.20-6.00 [facility] Comment on above: Order Comment: Speci men Type: BLOOD SPECIMENOrdering Facility: [facility] Address: [address] [place] [address] Performed By: #### 5 7021-8 ####[facility] LABCLIA [id number] [place] [address] [place] WBC (Bld) [#/Vol] 2.92 10*3/uL Low 3.70-11.00 [facility] Comment on above: Order Comment: Speci men Type: BLOOD SPECIMENOrdering Facility: [facility] Address: [address] [place] [address] Performed By: #### 5 7021-8 ####[facility] LABCLIA [id number] [place] [address] [place] CRP SerPl-mCncon 04-07-2024 CRP [Mass/Vol] 1.2 mg/dL High <0.9 [facility] Comment on above: Order Comment: Speci men Type: BLOOD SPECIMENOrdering Facility: [facility] Address: [address] [place] [address] Performed By: #### 1 988-5, 33985-3, 3084-1, 2777-1, 2276-4 ####[facility] LABCLIA [id number] [place] [address] [place] Comprehensive metabolic 2000 panelon 04-07-2024 Albumin [Mass/Vol] 3.7 g/dL Low 3.9-4.9 [facility] Comment on above: Order Comment: Speci men Type: BLOOD SPECIMENOrdering Facility: [facility] Address: [address] [place] [address] Performed By: #### 2 532-0, 08933-0 ####[facility] LABCLIA [id number] [place] [address] [place] ALP [Catalytic activity/Vol] 184 U/L High 38-113 [facility] Comment on above: Order Comment: Speci men Type: BLOOD SPECIMENOrdering Facility: [facility] Address: [address] [place] [address] Performed By: #### 2 532-0, 67021-5 ####[facility] LABCLIA [id number] [place] [address] [place] ALT [Catalytic activity/Vol] 14 U/L Normal 10-54 [facility] Comment on above: Order Comment: Speci men Type: BLOOD SPECIMENOrdering Facility: [facility] Address: [address] [place] [address] Performed By: #### 2 532-0, 62899-4 ####[facility] LABCLIA [id number] [place] [address] [place] Anion gap [Moles/Vol] 12 mmol/L Normal 8-15 [facility] Comment on above: Order Comment: Speci men Type: BLOOD SPECIMENOrdering Facility: [facility] Address: [address] [place] [address] Performed By: #### 2 532-0, 01457-0 ####[facility] LABCLIA [id number] [place] [address] [place] AST [Catalytic activity/Vol] 17 U/L Normal 14-40 [facility] Comment on above: Order Comment: Speci men Type: BLOOD SPECIMENOrdering Facility: [facility] Address: [address] [place] [address] Performed By: #### 2 532-0, 14662-0 ####[facility] LABCLIA [id number] [place] [address] [place] [place] Bilirubin [Mass/Vol] 0.3 mg/dL Normal 0.2-1.3 [facility] Comment on above: Order Comment: Speci men Type: BLOOD SPECIMENOrdering Facility: [facility] Address: [address] [place] [address] Performed By: #### 2 532-0, 14730-8 ####[facility] LABCLIA [id number] [place] [address] [place] Calcium [Mass/Vol] 8.9 mg/dL Normal 8.5-10.2 [facility] Comment on above: Order Comment: Speci men Type: BLOOD SPECIMENOrdering Facility: [facility] Address: [address] [place] [address] Performed By: #### 2 532-0, 42383-3 ####[facility] LABCLIA [id number] [place] [address] [place] Chloride [Moles/Vol] 107 mmol/L Normal 98-107 [facility] Comment on above: Order Comment: Speci men Type: BLOOD SPECIMENOrdering Facility: [facility] Address: [address] [place] [address] Performed By: #### 2 532-0, 59632-9 ####[facility] LABCLIA [id number] [place] [address] [place] CO2 [Moles/Vol] 22 mmol/L Normal 22-30 [facility] Comment on above: Order Comment: Speci men Type: BLOOD SPECIMENOrdering Facility: [facility] Address: [address] [place] [address] Performed By: #### 2 532-0, 65153-5 ####[facility] LABCLIA [id number] [place] [address] [place] Creatinine [Mass/Vol] 0.95 mg/dL Normal 0.73-1.22 [facility] Comment on above: Order Comment: Speci men Type: BLOOD SPECIMENOrdering Facility: [facility] Address: [address] [place] [address] Performed By: #### 2 532-0, 94325-9 ####[facility] LABCLIA [id number] [place] [address] [place] Creatinine and Glomerular filtration rate.predicted panel (S/P/Bld) 88 mL/min/1.73m??? Normal >=60 [facility] Comment on above: Order Comment: Speci men Type: BLOOD SPECIMENOrdering Facility: [facility] Address: [address] [place] [address] Result Comment: Carol mated Glomerular Filtration Rate [...] actual GFR. Performed By: #### 2 532-0, 18350-3 ####[facility] LABCLIA [id number] [place] [address] [place] Glucose [Mass/Vol] 77 mg/dL Normal 74-99 [facility] Comment on above: Order Comment: Sara randle Type: BLOOD SPECIMENOrdering Facility: [facility] Address: [address] [place] [address] Result Comment: The [place] Diabetes Association (ADA) provides guidance for cutoff [...] Standards of Medical Care in Diabetes 2016, [place] [employer]. Diabetes Care. 2016.39(Suppl 1). Performed By: #### 2 532-0, 04975-7 ####[facility] LABIA [id number] [place] [address] [place] Potassium [Moles/Vol] 4.1 mmol/L Normal 3.7-5.1 [facility] Comment on above: Order Comment: Sara randle Type: BLOOD SPECIMENOrdering Facility: [facility] Address: [address] [place] [address] Performed By: #### 2 532-0, 17050-6 ####[facility] LABCLIA [id number] [place] [address] [place] Protein [Mass/Vol] 5.9 g/dL Low 6.3-8.0 [facility] Comment on above: Order Comment: Speci men Type: BLOOD SPECIMENOrdering Facility: [facility] Address: [address] [place] [address] Performed By: #### 2 532-0, 92271-9 ####[facility] LABCLIA [id number] [place] [address] [place] Sodium [Moles/Vol] 141 mmol/L Normal 136-144 [facility] Comment on above: Order Comment: Speci men Type: BLOOD SPECIMENOrdering Facility: [facility] Address: [address] [place] [address] Performed By: #### 2 532-0, 17503-3 ####[facility] LABIA [id number] [place] [address] [place] Urea nitrogen [Mass/Vol] 16 mg/dL Normal 9-24 [facility] Comment on above: Order Comment: Speci men Type: BLOOD SPECIMENOrdering Facility: [facility] Address: [address] [place] [address] Performed By: #### 2 532-0, 35428-8 ####[facility] LABCLIA [id number] [place] [address] [place] Ferritin SerPl-mCncon 2023 Ferritin [Mass/Vol] 370.0 ng/mL Normal 30.3-565.7 [facility] Comment on above: Order Comment: Speci men Type: BLOOD SPECIMENOrdering Facility: [facility] Address: [address] [place] [address] Performed By: #### 1 988-5, 54358-8, 3084-1, 2777-1, 2276-4 ####[facility] LABCLIA [id number] [place] [id number] [place] LDH SerPl-cCncon 04-07-2024 LDH [Catalytic activity/Vol] 182 U/L Normal 135-225 [facility] Comment on above: Order Comment: Speci men Type: BLOOD SPECIMENOrdering Facility: [facility] Address: [address] [place] [address] Performed By: #### 2 532-0, 92652-7 ####[facility] LABCLIA [id number] [place] [address] [place] MEDICAL EMERon 04-07-2024 MEDICAL FILOMENA Normal [facility] Magnesium SerPl-mCncon 04-07 Magnesium [Mass/Vol] 2.1 mg/dL Normal 1.7-2.3 [facility] Comment on above: Order Comment: Speci men Type: BLOOD SPECIMENOrdering Facility: [facility] Address: [address] [place] [address] [place] [address] Performed By: #### 1 988-5, 28102-5, 3084-1, 2777-1, 2276-4 ####[facility] LABCLIA [id number] [place] [address] [place] NURSING PROGon 04-07-2024 NURSING PROG Normal [facility] NUTRITIONon 04-07-2024 NUTRITION Normal [facility] PT EDon 04-07-2024 PT ED Normal [facility] Phosphate SerPl-mCncon 04-07 Phosphate [Mass/Vol] 3.2 mg/dL Normal 2.7-4.8 [facility] Comment on above: Order Comment: Speci men Type: BLOOD SPECIMENOrdering Facility: [facility] Address: [address] [place], [place] [address] [address] Performed By: #### 1 988-5, 12762-2, 3084-1, 2777-1, 2276-4 ####[facility] LABCLIA [id number] [place] [address] [place] US LEG VEIN DVT SANC[facility] LABo n 06-05-2024 US LEG VEIN DVT [facility] LAB Normal [facility] Urate SerPl-mCncon Urate [Mass/Vol] 3.8 mg/dL Low 4.0-8.1 [facility] Comment on above: Order Comment: Speci men Type: BLOOD SPECIMENOrdering Facility: [facility] Address: [address] [place] [address] Performed By: #### 1 988-5, 30390-0, 3084-1, 2777-1, 2276-4 ####[facility] LABCLIA [id number] [place] [address] [place] CBC W Auto Differential pane l (Bld)on 04-06-2024 Basophils (Bld) [#/Vol] 10*3/uL Normal <0.11 [facility] Comment on above: Order Comment: Speci men Type: BLOOD SPECIMENOrdering Facility: [facility] Address: [address] [place] [address] Performed By: #### 5 7021-8 ####[facility] LABCLIA [id number] [place] [address] [place] Basophils/100 WBC (Bld) 0.5 % Normal [facility] Comment on above: Order Comment: Speci men Type: BLOOD SPECIMENOrdering Facility: [facility] Address: [address] [place] [address] Performed By: #### 5 7021-8 ####[facility] LABCLIA [id number] [place] [address] [place] Differential cell count method Nom (Bld) Auto Normal [facility] Comment on above: Order Comment: Speci men Type: BLOOD SPECIMENOrdering Facility: [facility] Address: [address] [place] [address] Performed By: #### 5 7021-8 ####[facility] LABCLIA [id number] [place] [id number] [place] Eosinophils (Bld) [#/Vol] 0.06 10*3/uL Normal <0.46 [facility] Comment on above: Order Comment: Speci men Type: BLOOD SPECIMENOrdering Facility: [facility] Address: [address] [place] [address] Performed By: #### 5 7021-8 ####[facility] LABCLIA [id number] [place] [address] [place] Eosinophils/100 WBC (Bld) 2.7 % Normal [facility] Comment on above: Order Comment: Speci men Type: BLOOD SPECIMENOrdering Facility: [facility] Address: [address] [place] [address] Performed By: #### 5 7021-8 ####[facility] LABCLIA [id number] [place] [address] [place] Erythrocyte distribution width (RBC) [Ratio] 13.4 % Normal 11.5-15.0 [facility] Comment on above: Order Comment: Speci men Type: BLOOD SPECIMENOrdering Facility: [facility] Address: [address] [place] [address] Performed By: #### 5 7021-8 ####[facility] LABCLIA [id number] [place] [address] [place] Hematocrit (Bld) [Volume fraction] 37.3 % Low 39.0-51.0 [facility] Comment on above: Order Comment: Speci men Type: BLOOD SPECIMENOrdering Facility: [facility] Address: [address] [place] [address] Performed By: #### 5 7021-8 ####[facility] LABCLIA [id number] [place] [address] [place] Hemoglobin (Bld) [Mass/Vol] 12.6 g/dL Low 13.0-17.0 [facility] Comment on above: Order Comment: Speci men Type: BLOOD SPECIMENOrdering Facility: [facility] Address: [address] [place] [address] Performed By: #### 5 7021-8 ####[facility] LABCLIA [id number] [place] [address] [place] Immature granulocytes (Bld) [#/Vol] 10*3/uL Normal <0.10 [facility] Comment on above: Order Comment: Speci men Type: BLOOD SPECIMENOrdering Facility: [facility] Address: [address] [place] [address] Performed By: #### 5 7021-8 ####[facility] LABCLIA [id number] [place] [address] [place] Immature granulocytes/100 WBC (Bld) 0.5 % Normal [facility] Comment on above: Order Comment: Speci men Type: BLOOD SPECIMENOrdering Facility: [facility] Address: [address] [place] [address] Performed By: #### 5 7021-8 ####[facility] LABCLIA [id number] [place] [address] [place] Lymphocytes (Bld) [#/Vol] 10*3/uL Low 1.00-4.00 [facility] Comment on above: Order Comment: Speci men Type: BLOOD SPECIMENOrdering Facility: [facility] Address: [address] [place] [address] Performed By: #### 5 7021-8 ####[facility] LABCLIA [id number] [place] [address] [place] Lymphocytes/100 WBC (Bld) 0.5 % Normal [facility] Comment on above: Order Comment: Speci men Type: BLOOD SPECIMENOrdering Facility: [facility] Address: [address] [place] [address] Performed By: #### 5 7021-8 ####[facility] LABCLIA [id number] [place] [address] [place] MCH (RBC) [Entitic mass] 30.4 pg Normal 26.0-34.0 [facility] Comment on above: Order Comment: Speci men Type: BLOOD SPECIMENOrdering Facility: [facility] Address: [address] [place] [address] Performed By: #### 5 7021-8 ####[facility] LABCLIA [id number] [place] [address] [place] MCHC (RBC) [Mass/Vol] 33.8 g/dL Normal 30.5-36.0 [facility] Comment on above: Order Comment: Speci men Type: BLOOD SPECIMENOrdering Facility: [facility] Address: [address] [place] [address] Performed By: #### 5 7021-8 ####[facility] LABCLIA [id number] [place] [address] [place] MCV (RBC) [Entitic vol] 90.1 fL Normal 80.0-100.0 [facility] Comment on above: Order Comment: Speci men Type: BLOOD SPECIMENOrdering Facility: [facility] Address: [address] [place] [address] Performed By: #### 5 7021-8 ####[facility] LABIA [id number] [place] [address] [place] Monocytes (Bld) [#/Vol] 10*3/uL Normal <0.87 [facility] Comment on above: Order Comment: Speci men Type: BLOOD SPECIMENOrdering Facility: [facility] Address: [address] [place] [address] Performed By: #### 5 7021-8 ####[facility] LABCLIA [id number] [place] [address] [place] Monocytes/100 WBC (Bld) 0.9 % Normal [facility] Comment on above: Order Comment: Speci men Type: BLOOD SPECIMENOrdering Facility: [facility] Address: [address] [place] [address] Performed By: #### 5 7021-8 ####[facility] LABCLIA [id number] [place] [address] [place] Neutrophils (Bld) [#/Vol] 2.11 10*3/uL Normal 1.45-7.50 [facility] Comment on above: Order Comment: Speci men Type: BLOOD SPECIMENOrdering Facility: [facility] Address: [address] [place] [address] Performed By: #### 5 7021-8 ####[facility] LABCLIA [id number] [place] [address] [place] Neutrophils/100 WBC (Bld) 94.9 % Normal [facility] Comment on above: Order Comment: Speci men Type: BLOOD SPECIMENOrdering Facility: [facility] Address: [address] [place] [address] Performed By: #### 5 7021-8 ####[facility] LABCLIA [id number] [place] [address] [place] Nucleated RBC (Bld) [#/Vol] 10*3/uL Normal <0.01 [facility] Comment on above: Order Comment: Speci men Type: BLOOD SPECIMENOrdering Facility: [facility] Address: [address] [place] [address] Performed By: #### 5 7021-8 ####[facility] LABCLIA [id number] [place] [address] [place] Nucleated RBC/100 WBC (Bld) [Ratio] 0.0 /100 WBC Normal [facility] Comment on above: Order Comment: Speci men Type: BLOOD SPECIMENOrdering Facility: [facility] Address: [address] [place] [address] Performed By: #### 5 7021-8 ####[facility] LABCLIA [id number] [place] [address] [place] Platelet mean volume (Bld) [Entitic vol] 9.6 fL Normal 9.0-12.7 [facility] Comment on above: Order Comment: Speci men Type: BLOOD SPECIMENOrdering Facility: [facility] Address: [address] [place] [address] Performed By: #### 5 7021-8 ####[facility] LABCLIA [id number] [place] [address] [place] Platelets (Bld) [#/Vol] 118 10*3/uL Low 150-400 [facility] Comment on above: Order Comment: Speci men Type: BLOOD SPECIMENOrdering Facility: [facility] Address: [address] [place] [address] Performed By: #### 5 7021-8 ####[facility] LABCLIA [id number] [place] [address] [place] RBC (Bld) [#/Vol] 4.14 10*6/uL Low 4.20-6.00 [facility] Comment on above: Order Comment: Speci men Type: BLOOD SPECIMENOrdering Facility: [facility] Address: [address] [place] [address] Performed By: #### 5 7021-8 ####[facility] LABIA [id number] [place] [address] [place] WBC (Bld) [#/Vol] 2.22 10*3/uL Low 3.70-11.00 [facility] Comment on above: Order Comment: Speci men Type: BLOOD SPECIMENOrdering Facility: [facility] Address: [address] [place] [address] Performed By: #### 5 7021-8 ####[facility] LABCLIA [id number] [place] [address] [place] CRP SerPl-mCncon 04-06-2024 CRP [Mass/Vol] 1.7 mg/dL High <0.9 [facility] Comment on above: Order Comment: Speci men Type: BLOOD SPECIMENOrdering Facility: [facility] Address: [address] [place] [address] Performed By: #### 1 988-5, 86779-6, 2777-1, 3084-1, 2276-4 ####[facility] LABCLIA [id number] [place] [address] [place] Comprehensive metabolic 2000 panelon 04-06-2024 Albumin [Mass/Vol] 4.0 g/dL Normal 3.9-4.9 [facility] Comment on above: Order Comment: Speci men Type: BLOOD SPECIMENOrdering Facility: [facility] Address: [address] [place] [address] Performed By: #### 2 4323-8, 2532-0 ####[facility] LABCLIA [id number] [place] [address] [place] ALP [Catalytic activity/Vol] 174 U/L High 38-113 [facility] Comment on above: Order Comment: Speci men Type: BLOOD SPECIMENOrdering Facility: [facility] Address: [address] [place] [address] Performed By: #### 2 4323-8, 2532-0 ####[facility] LABCLIA [id number] [place] [address] [place] ALT [Catalytic activity/Vol] 18 U/L Normal 10-54 [facility] Comment on above: Order Comment: Speci men Type: BLOOD SPECIMENOrdering Facility: [facility] Address: [address] [place] [address] Performed By: #### 2 4323-8, 2532-0 ####[facility] LABCLIA [id number] [place] [id number] [place] Anion gap [Moles/Vol] 11 mmol/L Normal 8-15 [facility] Comment on above: Order Comment: Speci men Type: BLOOD SPECIMENOrdering Facility: [facility] Address: [address] [place] [address] Performed By: #### 2 4323-8, 2531-0 ####[facility] LABCLIA [id number] [place] [id number] [place] AST [Catalytic activity/Vol] 19 U/L Normal 14-40 [facility] Comment on above: Order Comment: Speci men Type: BLOOD SPECIMENOrdering Facility: [facility] Address: [address] [place] [address] Performed By: #### 2 4323-8, 2531-0 ####[facility] LABCLIA [id number] [place] [address] [place] Bilirubin [Mass/Vol] 0.4 mg/dL Normal 0.2-1.3 [facility] Comment on above: Order Comment: Speci men Type: BLOOD SPECIMENOrdering Facility: [facility] Address: [address] [place] [address] Performed By: #### 2 4323-8, 0 ####[facility] LABCLIA [id number] [place] [address] [place] Calcium [Mass/Vol] 8.9 mg/dL Normal 8.5-10.2 [facility] Comment on above: Order Comment: Speci men Type: BLOOD SPECIMENOrdering Facility: [facility] Address: [address] [place] [address] Performed By: #### 2 4323-8, 2531-0 ####[facility] LABCLIA [id number] [place] [address] [place] Chloride [Moles/Vol] 106 mmol/L Normal 98-107 [facility] Comment on above: Order Comment: Speci men Type: BLOOD SPECIMENOrdering Facility: [facility] Address: [address] [place] [address] Performed By: #### 2 4323-8, 2531-0 ####[facility] LABCLIA [id number] [place] [id number] [place] CO2 [Moles/Vol] 25 mmol/L Normal 22-30 [facility] Comment on above: Order Comment: Speci men Type: BLOOD SPECIMENOrdering Facility: [facility] Address: [address] [place] [address] Performed By: #### 2 4323-8, 2531-0 ####[facility] LABIA [id number] [place] [address] [place] Creatinine [Mass/Vol] 0.92 mg/dL Normal 0.73-1.22 [facility] Comment on above: Order Comment: Speci men Type: BLOOD SPECIMENOrdering Facility: [facility] Address: [address] [place] [address] Performed By: #### 2 4328, 2531-0 ####[facility] LABIA [id number] [place] [address] [place] Creatinine and Glomerular filtration rate.predicted panel (S/P/Bld) 91 mL/min/1.73m??? Normal >=60 [facility] Comment on above: Order Comment: Speci men Type: BLOOD SPECIMENOrdering Facility: [facility] Address: [address] [place] [address] Result Comment: Carol mated Glomerular Filtration Rate [...] GFR. Performed By: #### 2 4323-8, 2532-0 ####[facility] LABIA [id number] [place] [address] [place] Glucose [Mass/Vol] 114 mg/dL High 74-99 [facility] Comment on above: Order Comment: Speci men Type: BLOOD SPECIMENOrdering Facility: [facility] Address: [address] [place] [address] Result Comment: The [place] [employer] (ADA) provides guidance for cutoff [...] Standards of Medical Care in Diabetes 2016, [place] [employer]. Diabetes Care. 2016.39(Suppl 1). Performed By: #### 2 4323-8, 0 ####[facility] LABCLIA [id number] [place] [address] [place] Potassium [Moles/Vol] 4.1 mmol/L Normal 3.7-5.1 [facility] Comment on above: Order Comment: Sara randle Type: BLOOD SPECIMENOrdering Facility: [facility] Address: [address] [place] [address] Performed By: #### 2 4323-8, 0 ####[facility] LABCLIA [id number] [place] [address] [place] Protein [Mass/Vol] 6.4 g/dL Normal 6.3-8.0 [facility] Comment on above: Order Comment: Sara randle Type: BLOOD SPECIMENOrdering Facility: [facility] Address: [address] [place] [address] Performed By: #### 2 4323-8, 2531-0 ####[facility] LABCLIA [id number] [place] [address] [place] Sodium [Moles/Vol] 142 mmol/L Normal 136-144 [facility] Comment on above: Order Comment: Speci men Type: BLOOD SPECIMENOrdering Facility: [facility] Address: [address] [place] [address] Performed By: #### 2 4323-8, 2532-0 ####[facility] LABCLIA [id number] [place] [address] [place] Urea nitrogen [Mass/Vol] 16 mg/dL Normal 9-24 [facility] Comment on above: Order Comment: Speci men Type: BLOOD SPECIMENOrdering Facility: [facility] Address: [address] [place] [address] Performed By: #### 2 4323-8, 2532-0 ####[facility] LABCLIA [id number] [place] [address] [place] D dimer FEU PPP-ncon 04-06 Fibrin D-dimer FEU (PPP) [Mass/Vol] 700 ng/mL FEU High <500 [facility] Comment on above: Order Comment: Speci men Type: BLOOD SPECIMENOrdering Facility: [facility] Address: [address] [place] [address] Performed By: #### 4 8065-7, 3255-7, 42161-5 ####[facility] LABCLIA [id number] [place] [address] [place] Ferritin SerPl-mCncon 2023 Ferritin [Mass/Vol] 408.0 ng/mL Normal 30.3-565.7 [facility] Comment on above: Order Comment: Speci men Type: BLOOD SPECIMENOrdering Facility: [facility] Address: [address] [place] [address] Performed By: #### 1 988-5, 93521-6, 2777-1, 3084-1, 2276-4 ####[facility] LABCLIA [id number] [place] [id number] [place] Fibrin D-dimer FEU (PPP) [Ma ss/Vol]on 04-06-2024 D DIMER AGE-RELATED CUTOFF 670 ng/mL FEU Normal [facility] Comment on above: Order Comment: Speci men Type: BLOOD SPECIMENOrdering Facility: [facility] Address: [address] [place] [address] Performed By: #### 4 8065-7, 3255-7, 55757-9 ####[facility] LABCLIA [id number] [place] [address] [place] Fibrinogen PPP-mCncon 2023 Fibrinogen Coag (PPP) [Mass/Vol] 385 mg/dL Normal 200-400 [facility] Comment on above: Order Comment: Speci men Type: BLOOD SPECIMENOrdering Facility: [facility] Address: [address] [place] [address] Performed By: #### 4 8065-7, 3255-7, 97544-6 ####[facility] LABCLIA [id number] [place] [address] [place] HISTORY PHYSICALon HISTORY PHYSICAL Normal [facility] HPC INFUSIONon 04-06-2024 INFUSION DATE 04/06/2024 Normal [facility] Comment on above: Order Comment: Speci men Type: SPECIMEN FROM BLOOD PRODUCTOrdering Facility: [facility] Address: [address] [place] [address] Performed By: #### H PCING ####[facility] LABCLIA [id number] [place] [address] [place] PRODUCT ID [id number] Normal [facility] Comment on above: Order Comment: Speci men Type: SPECIMEN FROM BLOOD PRODUCTOrdering Facility: [facility] Address: [address] [place] [address] Performed By: #### H PCING ####[facility] LABCLIA [id number] [place] [address] [place] PRODUCT TYPE Yescarta Normal [facility] Comment on above: Order Comment: Speci men Type: SPECIMEN FROM BLOOD PRODUCTOrdering Facility: [facility] Address: [address] [place] [address] Performed By: #### H PCING ####[facility] LABCLIA [id number] [place] [address] [place] LDH SerPl-cCncon 04-06-2024 LDH [Catalytic activity/Vol] 180 U/L Normal 135-225 [facility] Comment on above: Order Comment: Speci men Type: BLOOD SPECIMENOrdering Facility: [facility] Address: [address] [place] [address] Performed By: #### 2 4323-8, 2532-0 ####[facility] LABCLIA [id number] [place] [address] [place] Magnesium SerPl-mCncon 04-06 Magnesium [Mass/Vol] 2.2 mg/dL Normal 1.7-2.3 [facility] Comment on above: Order Comment: Speci men Type: BLOOD SPECIMENOrdering Facility: [facility] Address: [address] [place] [address] Performed By: #### 1 988-5, 93356-0, 2777-1, 3084-1, 2276-4 ####[facility] LABCLIA [id number] [place] [address] [place] NURSING PROGon 04-06-2024 NURSING PROG Normal [facility] PT panel Coag (PPP)on 2023 INR Coag (PPP) [Relative time] 1.1 {INR} Normal 0.9-1.3 [facility] Comment on above: Order Comment: Speci men Type: BLOOD SPECIMENOrdering Facility: [facility] Address: [address] [place] [address] Result Comment: Anca min K Antagonist (VKA) Therapeutic Range: INR 2 to 3 (Target INR of 2.5)Note: For patients treated with VKA drugs, such as warfarin, the [place] [employer] 2012 Guideline recommends [...] al. Chest 2012, 141:7S-47SNishimura RA, et al. [facility] 2017, 70: 252-289 Performed By: #### 3 4528-0 ####[facility] LABIA [id number] [place] [address] [place] PT Coag (PPP) [Time] 11.4 s Normal 9.7-13.0 [facility] Comment on above: Order Comment: Speci men Type: BLOOD SPECIMENOrdering Facility: [facility] Address: [address] [place] [address] Performed By: #### 3 4528-0 ####[facility] LABIA [id number] [place] [address] [place] Phosphate SerPl-mCncon 04-06 Phosphate [Mass/Vol] 3.3 mg/dL Normal 2.7-4.8 [facility] Comment on above: Order Comment: Speci men Type: BLOOD SPECIMENOrdering Facility: [facility] Address: [address] [place] [address] Performed By: #### 1 988-5, 05430-5, 2777-1, 3084-1, 2276-4 ####[facility] LABCLIA [id number] [place] [address] [place] TYPE + SCREENon 04-06-2024 ABO B Normal [facility] Comment on above: Order Comment: Speci men Type: BLOOD SPECIMENOrdering Facility: [facility] Address: [address] [place] [address] Performed By: #### T SCR ####CC MAIN BLOOD BANKCLIA [id number] [address] [place] HISTORICAL AB SCR STATUS Negative Normal [facility] Comment on above: Order Comment: Speci men Type: BLOOD SPECIMENOrdering Facility: [facility] Address: [address] [place] [address] Performed By: #### T SCR ####CC MAIN BLOOD BANKCLIA [id number] [address] [place] Rh Nom (Bld) Negative Normal [facility] Comment on above: Order Comment: Speci men Type: BLOOD SPECIMENOrdering Facility: [facility] Address: [address] [place] [address] Performed By: #### T SCR ####CC MAIN BLOOD BANKCLIA [id number] [place] [address] [place] TYPE AND SCREEN EXPIRATION 04/09/2024 23:59 Normal [facility] Comment on above: Order Comment: Speci men Type: BLOOD SPECIMENOrdering Facility: [facility] Address: [address] [place] [address] Performed By: #### T SCR ####CC MAIN BLOOD BANKCLIA [id number] [place] [address] [place] Urate SerPl-mCncon 4 Urate [Mass/Vol] 4.9 mg/dL Normal 4.0-8.1 [facility] Comment on above: Order Comment: Speci men Type: BLOOD SPECIMENOrdering Facility: [facility] Address: [address] [place] [address] Performed By: #### 1 988-5, 51299-3, 2777-1, 3084-1, 2276-4 ####[facility] LABCLIA [id number] [address] [place] aPTT PPPon 04-06-2024 aPTT Coag (PPP) [Time] 31.6 s Normal 23.0-32.4 [facility] Comment on above: Order Comment: Speci men Type: BLOOD SPECIMENOrdering Facility: [facility] Address: [address] [place] [address] Performed By: #### 4 8065-7, 3255-7, 31144-7 ####[facility] LABCLIA [id number] [address] STATES OF [facility] CBC W Auto Differential pane l (Bld)on 04-01-2024 Basophils (Bld) [#/Vol] 0.05 10*3/uL [facility] Basophils/100 WBC (Bld) 1.0 % [facility] Differential cell count method Nom (Bld) Auto [facility] Eosinophils (Bld) [#/Vol] 0.29 10*3/uL [facility] Eosinophils/100 WBC (Bld) 5.9 % [facility] Erythrocyte distribution width (RBC) [Ratio] 13.8 % 11.5 - 15.0 % [facility] Hematocrit (Bld) [Volume fraction] 39.4 % 39.0 - 51.0 % [facility] Hemoglobin (Bld) [Mass/Vol] 13.5 g/dL 13.0 - 17.0 g/dL [facility] Immature granulocytes (Bld) [#/Vol] [facility] Immature granulocytes/100 WBC (Bld) 0.4 % [facility] Interpretation and review of laboratory results Abnormal [facility] Lymphocytes (Bld) [#/Vol] 0.35 10*3/uL Low [facility] Lymphocytes/100 WBC (Bld) 7.2 % [facility] MCH (RBC) [Entitic mass] 31.8 pg 26.0 - 34.0 pg [facility] MCHC (RBC) [Mass/Vol] 34.3 g/dL 30.5 - 36.0 g/dL [facility] MCV (RBC) [Entitic vol] 92.9 fL 80.0 - 100.0 fL [facility] Monocytes (Bld) [#/Vol] 0.95 10*3/uL High NINF [facility] Monocytes/100 WBC (Bld) 19.5 % [facility] Neutrophils (Bld) [#/Vol] 3.22 10*3/uL [facility] Neutrophils/100 WBC (Bld) 66.0 % [facility] Nucleated RBC (Bld) [#/Vol] NINF [facility] Nucleated RBC/100 WBC (Bld) [Ratio] 0.0 % /100 WBC [facility] Platelet mean volume (Bld) [Entitic vol] 9.9 fL 9.0 - 12.7 fL [facility] Platelets (Bld) [#/Vol] 156 10*3/uL [facility] RBC (Bld) [#/Vol] 4.24 10*6/uL 4.20 - 6.00 m/uL [facility] WBC (Bld) [#/Vol] 4.88 10*3/uL [facility] Basophils (Bld) [#/Vol] 0.05 10*3/uL Normal <0.11 [facility] Comment on above: Order Comment: Speci men Type: BLOOD SPECIMENOrdering Facility: [facility] Address: [address] [place] [address] Performed By: #### 5 7021-8 ####[facility] [id number] [place] [address] [place] Basophils/100 WBC (Bld) 1.0 % Normal [facility] Comment on above: Order Comment: Speci men Type: BLOOD SPECIMENOrdering Facility: [facility] Address: [address] [place] [address] Performed By: #### 5 7021-8 ####[facility] [place] [id number] [place] [address] [place] Differential cell count method Nom (Bld) Auto Normal [facility] Comment on above: Order Comment: Speci men Type: BLOOD SPECIMENOrdering Facility: [facility] Address: [address] [place] [address] Performed By: #### 5 7021-8 ####[facility] [place] [id number] [place] [address] [place] Eosinophils (Bld) [#/Vol] 0.29 10*3/uL Normal <0.46 [facility] Comment on above: Order Comment: Speci men Type: BLOOD SPECIMENOrdering Facility: [facility] Address: [address] [place] [address] Performed By: #### 5 7021-8 ####[facility] [id number] [place] [address] [place] Eosinophils/100 WBC (Bld) 5.9 % Normal [facility] Comment on above: Order Comment: Speci men Type: BLOOD SPECIMENOrdering Facility: [facility] Address: [address] [place] [address] Performed By: #### 5 7021-8 ####[facility] [place] [id number] [place] [address] [place] Erythrocyte distribution width (RBC) [Ratio] 13.8 % Normal 11.5-15.0 [facility] Comment on above: Order Comment: Speci men Type: BLOOD SPECIMENOrdering Facility: [facility] Address: [address] [place] [address] Performed By: #### 5 7021-8 ####[facility] [place] [id number] [place] [address] [place] Hematocrit (Bld) [Volume fraction] 39.4 % Normal 39.0-51.0 [facility] Comment on above: Order Comment: Speci men Type: BLOOD SPECIMENOrdering Facility: [facility] Address: [address] [place] [address] Performed By: #### 5 7021-8 ####[facility] [place] [id number] [place] [address] [place] Hemoglobin (Bld) [Mass/Vol] 13.5 g/dL Normal 13.0-17.0 [facility] Comment on above: Order Comment: Speci men Type: BLOOD SPECIMENOrdering Facility: [facility] Address: [address] [place] [address] Performed By: #### 5 7021-8 ####[facility] [id number] [place] [address] [place] Immature granulocytes (Bld) [#/Vol] 10*3/uL Normal <0.10 [facility] Comment on above: Order Comment: Speci men Type: BLOOD SPECIMENOrdering Facility: [facility] Address: [address] [place] [address] Performed By: #### 5 7021-8 ####[facility] [place] [id number] [place] [address] [place] Immature granulocytes/100 WBC (Bld) 0.4 % Normal [facility] Comment on above: Order Comment: Speci men Type: BLOOD SPECIMENOrdering Facility: [facility] Address: [address] [place] [address] Performed By: #### 5 7021-8 ####[facility] [place] [id number] [place] [address] [place] Lymphocytes (Bld) [#/Vol] 0.35 10*3/uL Low 1.00-4.00 [facility] Comment on above: Order Comment: Speci men Type: BLOOD SPECIMENOrdering Facility: [facility] Address: [address] [place] [address] Performed By: #### 5 7021-8 ####[facility] [place] [id number] [place] [address] [place] Lymphocytes/100 WBC (Bld) 7.2 % Normal [facility] Comment on above: Order Comment: Speci men Type: BLOOD SPECIMENOrdering Facility: [facility] Address: [address] [place] [address] Performed By: #### 5 7021-8 ####[facility] [id number] [place] [address] [place] [facility] MCH (RBC) [Entitic mass] 31.8 pg Normal 26.0-34.0 [facility] Comment on above: Order Comment: Speci men Type: BLOOD SPECIMENOrdering Facility: [facility] Address: [address] [place] [address] Performed By: #### 5 7021-8 ####[facility] [place] [id number] [place] [address] [place] MCHC (RBC) [Mass/Vol] 34.3 g/dL Normal 30.5-36.0 [facility] Comment on above: Order Comment: Speci men Type: BLOOD SPECIMENOrdering Facility: [facility] Address: [address] [place] [address] Performed By: #### 5 7021-8 ####[facility] [place] [id number] [place] [address] [place] MCV (RBC) [Entitic vol] 92.9 fL Normal 80.0-100.0 [facility] Comment on above: Order Comment: Speci men Type: BLOOD SPECIMENOrdering Facility: [facility] Address: [address] [place] [address] Performed By: #### 5 7021-8 ####[facility] [id number] [place] [address] [place] Monocytes (Bld) [#/Vol] 0.95 10*3/uL High <0.87 [facility] Comment on above: Order Comment: Speci men Type: BLOOD SPECIMENOrdering Facility: [facility] Address: [address] [place] [address] Performed By: #### 5 7021-8 ####[facility] [place] [id number] [place] [address] [place] Monocytes/100 WBC (Bld) 19.5 % Normal [facility] Comment on above: Order Comment: Speci men Type: BLOOD SPECIMENOrdering Facility: [facility] Address: [address] [place] [address] Performed By: #### 5 7021-8 ####[facility] [id number] [place] [address] [place] Neutrophils (Bld) [#/Vol] 3.22 10*3/uL Normal 1.45-7.50 [facility] Comment on above: Order Comment: Speci men Type: BLOOD SPECIMENOrdering Facility: [facility] Address: [address] [place] [address] Performed By: #### 5 7021-8 ####[facility] [id number] [place] [address] [place] Neutrophils/100 WBC (Bld) 66.0 % Normal [facility] Comment on above: Order Comment: Speci men Type: BLOOD SPECIMENOrdering Facility: [facility] Address: [address] [place] [address] Performed By: #### 5 7021-8 ####[facility] [place] [id number] [place] [address] [place] Nucleated RBC (Bld) [#/Vol] 10*3/uL Normal <0.01 [facility] Comment on above: Order Comment: Speci men Type: BLOOD SPECIMENOrdering Facility: [facility] Address: [address] [place] [address] Performed By: #### 5 7021-8 ####[facility] [place] [id number] [place] [address] [place] Nucleated RBC/100 WBC (Bld) [Ratio] 0.0 /100 WBC Normal [facility] Comment on above: Order Comment: Speci men Type: BLOOD SPECIMENOrdering Facility: [facility] Address: [address] [place] [address] Performed By: #### 5 7021-8 ####[facility] [id number] [place] [address] [place] Platelet mean volume (Bld) [Entitic vol] 9.9 fL Normal 9.0-12.7 [facility] Comment on above: Order Comment: Speci men Type: BLOOD SPECIMENOrdering Facility: [facility] Address: [address] [place] [address] Performed By: #### 5 7021-8 ####[facility] [place] [id number] [place] [address] [place] Platelets (Bld) [#/Vol] 156 10*3/uL Normal 150-400 [facility] Comment on above: Order Comment: Speci men Type: BLOOD SPECIMENOrdering Facility: [facility] Address: [address] [place] [address] Performed By: #### 5 7021-8 ####[facility] [place] [id number] [place] [address] [place] RBC (Bld) [#/Vol] 4.24 10*6/uL Normal 4.20-6.00 [facility] Comment on above: Order Comment: Speci men Type: BLOOD SPECIMENOrdering Facility: [facility] Address: [address] [place] [address] Performed By: #### 5 7021-8 ####[facility] [id number] [place] [address] [place] WBC (Bld) [#/Vol] 4.88 10*3/uL Normal 3.70-11.00 [facility] Comment on above: Order Comment: Speci men Type: BLOOD SPECIMENOrdering Facility: [facility] Address: [address] [place] [address] Performed By: #### 5 7021-8 ####[facility] [id number] [place] [address] [place] CNCOon 04-01-2024 CNCO Letter Text Normal [facility] CNOVSPon 04-01-2024 CNOVSP Normal [facility] Comprehensive metabolic 2000 panelon 04-01-2024 Albumin [Mass/Vol] 3.7 g/dL Low 3.9 - 4.9 g/dL [facility] ALP [Catalytic activity/Vol] 169 U/L High 38 - 113 U/L [facility] ALT [Catalytic activity/Vol] 17 U/L 10 - 54 U/L [facility] Anion gap [Moles/Vol] 10 mmol/L 9 - 18 mmol/L [facility] AST [Catalytic activity/Vol] 17 U/L 14 - 40 U/L [facility] Bilirubin [Mass/Vol] 0.2 mg/dL 0.2 - 1 .3 mg/dL [facility] Calcium [Mass/Vol] 8.4 mg/dL Low 8.5 - 10. 2 mg/dL [facility] Chloride [Moles/Vol] 108 mmol/L High 97 - 10 5 mmol/L [facility] CO2 [Moles/Vol] 23 mmol/L 22 - 30 mmol/L [facility] Creatinine [Mass/Vol] 0.88 mg/dL 0.73 - 1.22 mg/dL [facility] GFR/1.73 sq M.predicted among non-blacks MDRD (S/P/Bld) [Vol rate/Area] 94 mL/min/{1.73_m2} - PINF [facility] Comment on above: Estimated Glomerular Filtration Rate [...] [Mass/Vol] 88 mg/dL 74 - 99 mg/dL [facility] Comment on above: The [place] Diab[employer] Association (ADA) provides guidance for [...] Standards of Medical Care in Diabetes 2016, [place] [employer]. Diabetes Care. 2016.39(Suppl 1). Interpretation and review of laboratory results Abnormal [facility] Potassium [Moles/Vol] 3.9 mmol/L 3.7 - 5.1 mmol/L [facility] Protein [Mass/Vol] 6.2 g/dL Low 6.3 - 8.0 g/dL [facility] Sodium [Moles/Vol] 141 mmol/L 136 - 144 mmol/L [facility] Urea nitrogen [Mass/Vol] 17 mg/dL 9 - 24 mg/dL [facility] Albumin [Mass/Vol] 3.7 g/dL Low 3.9-4.9 [facility] Comment on above: Order Comment: Speci men Type: BLOOD SPECIMENOrdering Facility: [facility] Address: [address] [place] [address] Performed By: #### 2 4323-8 ####[facility] LABCLIA [id number] [place] [address] [place] ALP [Catalytic activity/Vol] 169 U/L High 38-113 [facility] Comment on above: Order Comment: Speci men Type: BLOOD SPECIMENOrdering Facility: [facility] Address: [address] [place] [address] Performed By: #### 2 4323-8 ####[facility] LABCLIA [id number] [place] [address] [place] ALT [Catalytic activity/Vol] 17 U/L Normal 10-54 [facility] Comment on above: Order Comment: Speci men Type: BLOOD SPECIMENOrdering Facility: [facility] Address: [address] [place] [address] Performed By: #### 2 4323-8 ####[facility] LABCLIA [id number] [place] [id number] [place] Anion gap [Moles/Vol] 10 mmol/L Normal 9-18 [facility] Comment on above: Order Comment: Speci men Type: BLOOD SPECIMENOrdering Facility: [facility] Address: [address] [place] [address] Performed By: #### 2 4323-8 ####[facility] LABCLIA [id number] [place] [address] [place] AST [Catalytic activity/Vol] 17 U/L Normal 14-40 [facility] Comment on above: Order Comment: Speci men Type: BLOOD SPECIMENOrdering Facility: [facility] Address: [address] [place] [address] Performed By: #### 2 4323-8 ####[facility] LABCLIA [id number] [place] [address] [place] Bilirubin [Mass/Vol] 0.2 mg/dL Normal 0.2-1.3 [facility] Comment on above: Order Comment: Speci men Type: BLOOD SPECIMENOrdering Facility: [facility] Address: [address] [place] [address] Performed By: #### 2 4323-8 ####[facility] LABCLIA [id number] [place] [address] [place] Calcium [Mass/Vol] 8.4 mg/dL Low 8.5-10.2 [facility] Comment on above: Order Comment: Speci men Type: BLOOD SPECIMENOrdering Facility: [facility] Address: [address] [place], [place] [address] Performed By: #### 2 4323-8 ####[facility] LABCLIA [id number] [address] [id number] [address] [place] Chloride [Moles/Vol] 108 mmol/L High 97-105 [facility] Comment on above: Order Comment: Speci men Type: BLOOD SPECIMENOrdering Facility: [facility] Address: [address] [place] [address] Performed By: #### 2 4323-8 ####[facility] LABCLIA [id number] [place] [address] [place] CO2 [Moles/Vol] 23 mmol/L Normal 22-30 [facility] Comment on above: Order Comment: Speci men Type: BLOOD SPECIMENOrdering Facility: [facility] Address: [address] [place] [address] Performed By: #### 2 4323-8 ####[facility] LABIA [id number] [address] [place] Creatinine [Mass/Vol] 0.88 mg/dL Normal 0.73-1.22 [facility] Comment on above: Order Comment: Speci men Type: BLOOD SPECIMENOrdering Facility: [facility] Address: [address] [place] [address] Performed By: #### 2 4323-8 ####[facility] LABIA [id number] [address] [place] Creatinine and Glomerular filtration rate.predicted panel (S/P/Bld) 94 mL/min/1.73m??? Normal >=60 [facility] Comment on above: Order Comment: Speci men Type: BLOOD SPECIMENOrdering Facility: [facility] Address: [address] [place] [address] Result Comment: Carol mated Glomerular Filtration Rate [...] actual GFR. Performed By: #### 2 4323-8 ####[facility] LABCLIA [id number] [address] [address] [place] Glucose [Mass/Vol] 88 mg/dL Normal 74-99 [facility] Comment on above: Order Comment: Speci men Type: BLOOD SPECIMENOrdering Facility: [facility] Address: [address] [place] [address] Result Comment: The [place] Diabetes Association (ADA) provides guidance for cutoff [...] Standards of Medical Care in Diabetes 2016, [place] [employer] Association. Diabetes Care. 2016.39(Suppl 1). Performed By: #### 2 4323-8 ####[facility] LABCLIA [id number] [place] [address] [place] Potassium [Moles/Vol] 3.9 mmol/L Normal 3.7-5.1 [facility] Comment on above: Order Comment: Speci men Type: BLOOD SPECIMENOrdering Facility: [facility] Address: [address] [place] [address] Performed By: #### 2 4323-8 ####[facility] LABCLIA [id number] [place] [id number] [place] Protein [Mass/Vol] 6.2 g/dL Low 6.3-8.0 [facility] Comment on above: Order Comment: Speci men Type: BLOOD SPECIMENOrdering Facility: [facility] Address: [address] [place], [place] [address] Performed By: #### 2 4323-8 ####[facility] LABCLIA [id number] [place] [address] [place] Sodium [Moles/Vol] 141 mmol/L Normal 136-144 [facility] Comment on above: Order Comment: Speci men Type: BLOOD SPECIMENOrdering Facility: [facility] Address: [address] [place] [address] Performed By: #### 2 4323-8 ####[facility] LABCLIA [id number] [place] [address] [place] Urea nitrogen [Mass/Vol] 17 mg/dL Normal 9-24 [facility] Comment on above: Order Comment: Speci men Type: BLOOD SPECIMENOrdering Facility: [facility] Address: [address] [place] [address] Performed By: #### 2 4323-8 ####[facility] LABIA [id number] [place] [address] [place] PET+CT Guidance for [...] any questions regarding this interpretation, please call [phone]. If you are unable to reach us at the number above, please feel free to contact [facility] at [phone]. DIVISION OF RADIOLOGY * * *Final Report* [...] * Radiopharmaceutical Dose: 9.4 mCi * Radiopharmaceutical: A00-Dldnrpulismdtpcoeo (FDG) COMPARISON: FDG PET/CT 01/30/2024 CORRELATION: No relevant imaging available RESULT: REFERENCES: SUV reference values: * Blood pool (descending aorta) activity: SUVmax 2.8 * Background liver activity: SUVmax 3.4; SUVmean 2.6 Remote Sensing Scientist (topogram) images: No additional findings. Notes and [...] No abnormal uptake. DIVISION OF RADIOLOGY Provider, [facility] - 03/31/2024 * * *Final Report* * [...] * Radiopharmaceutical Dose: 9.4 mCi * Radiopharmaceutical: D65-Ahalwemwkmcikifcwy (FDG) COMPARISON: FDG PET/CT 01/30/2024 CORRELATION: No relevant imaging available RESULT: REFERENCES: SUV reference values: * Blood pool (descending aorta) activity: SUVmax 2.8 * Background liver activity: SUVmax 3.4; SUVmean 2.6 Remote Sensing Scientist (topogram) images: No additional findings. Notes and [...] suspicious for malignancy (more content not included)... [facility] PET+CT Guidance for localiza tion of tumor of Skull base to mid-thigh-- W 18F-FDG IVOrdered By: Ccf Provider on 03-31-2024 [facility] CNCOon 03-26-2024 CNCO Letter Text Normal [facility] GLUCOSE, BLOOD (POC)on 03-25 Glucose [Mass/Vol] 94 mg/dL 74 - 99 mg/dL [facility] Comment on above: Location:[facility], [address] [place] [address] , [place], [place], [address] The Accu-Chek Inform II glucose meter has [...] blood gas instrument) in the above situations. [facility] NM PET/CT SKULL-THIGH SUBQon 03-25-2024 NM PET/CT SKULL-THIGH SUBQ Normal [facility] PET+CT Guidance for localiza tion of tumor of Skull base to mid-thigh-- W 18F-FDG Bella 03-25-2024 Radiology Study observation (narrative) [facility] CNOVon 03-22-2024 CNOV Normal [facility] CNOVon 03-16-2024 CNOV Normal [facility] CNCNPATEDon 03-15-2024 CNCNPATED Normal [facility] CNOVon 03-15-2024 CNOV Normal [facility] CNPNon 03-13-2024 CNPN Normal [facility] CNPNon 03-10-2024 CNPN Normal [facility] BILIRUBIN, CONJUGATEDon Bilirubin.conjugated [Mass/Vol] mg/dL NINF - 0.2 mg/dL [facility] Bilirub Conj SerPl-mCncon Bilirubin.conjugated [Mass/Vol] mg/dL Normal <0.2 [facility] Comment on above: Order Comment: Speci men Type: BLOOD SPECIMENOrdering Facility: [facility] Address: [address] [place] [address] Performed By: #### 1 5152-2, 38176-6, 3084-1 ####[facility] [id number] [place] [address] [place] C-REACTIVE PROTEINon 024 CRP [Mass/Vol] 2.3 mg/dL High [facility] mg/dL [facility] CBC W Auto Differential pane l (Bld)on 03-09-2024 Basophils (Bld) [#/Vol] 0.07 10*3/uL [facility] Basophils/100 WBC (Bld) 0.9 % [facility] Differential cell count method Nom (Bld) Auto [facility] Eosinophils (Bld) [#/Vol] 0.38 10*3/uL [facility] Eosinophils/100 WBC (Bld) 5.1 % [facility] Erythrocyte distribution width (RBC) [Ratio] 13.0 % 11.5 - 15.0 % [facility] Hematocrit (Bld) [Volume fraction] 38.7 % Low 39.0 - 51.0 % [facility] Hemoglobin (Bld) [Mass/Vol] 13.2 g/dL 13.0 - 17.0 g/dL [facility] Immature granulocytes (Bld) [#/Vol] [facility] Immature granulocytes/100 WBC (Bld) 0.3 % [facility] Interpretation and review of laboratory results Abnormal [facility] Lymphocytes (Bld) [#/Vol] 0.54 10*3/uL Low [facility] Lymphocytes/100 WBC (Bld) 7.3 % [facility] MCH (RBC) [Entitic mass] 30.7 pg 26.0 - 34.0 pg [facility] MCHC (RBC) [Mass/Vol] 34.1 g/dL 30.5 - 36.0 g/dL [facility] MCV (RBC) [Entitic vol] 90.0 fL 80.0 - 100.0 fL [facility] Monocytes (Bld) [#/Vol] 1.06 10*3/uL High [facility] Monocytes/100 WBC (Bld) 14.3 % [facility] Neutrophils (Bld) [#/Vol] 5.36 10*3/uL [facility] Neutrophils/100 WBC (Bld) 72.1 % [facility] Nucleated RBC (Bld) [#/Vol] [facility] Nucleated RBC/100 WBC (Bld) [Ratio] 0.0 % /100 WBC [facility] Platelet mean volume (Bld) [Entitic vol] 9.9 fL 9.0 - 12.7 fL [facility] Platelets (Bld) [#/Vol] 219 10*3/uL [facility] RBC (Bld) [#/Vol] 4.30 10*6/uL 4.20 - 6.00 m/uL [facility] WBC (Bld) [#/Vol] 7.43 10*3/uL [facility] Basophils (Bld) [#/Vol] 0.07 10*3/uL Normal <0.11 [facility] Comment on above: Order Comment: Speci men Type: BLOOD SPECIMENOrdering Facility: [facility] Address: [address] [place] [address] Performed By: #### 5 7021-8 ####[facility] [id number] [place] [address] [place] Basophils/100 WBC (Bld) 0.9 % Normal [facility] Comment on above: Order Comment: Speci men Type: BLOOD SPECIMENOrdering Facility: [facility] Address: [address] [place] [address] Performed By: #### 5 7021-8 ####[facility] [id number] [place] [address] [place] Differential cell count method Nom (Bld) Auto Normal [facility] Comment on above: Order Comment: Speci men Type: BLOOD SPECIMENOrdering Facility: [facility] Address: [address] [place] [address] Performed By: #### 5 7021-8 ####[facility] [place] [id number] [place] [address] [place] Eosinophils (Bld) [#/Vol] 0.38 10*3/uL Normal <0.46 [facility] Comment on above: Order Comment: Speci men Type: BLOOD SPECIMENOrdering Facility: [facility] Address: [address] [place] [address] Performed By: #### 5 7021-8 ####[facility] [id number] [place] [address] [place] Eosinophils/100 WBC (Bld) 5.1 % Normal [facility] Comment on above: Order Comment: Speci men Type: BLOOD SPECIMENOrdering Facility: [facility] Address: [address] [place] [address] Performed By: #### 5 7021-8 ####[facility] [id number] [place] [address] [place] Erythrocyte distribution width (RBC) [Ratio] 13.0 % Normal 11.5-15.0 [facility] Comment on above: Order Comment: Speci men Type: BLOOD SPECIMENOrdering Facility: [facility] Address: [address] [place] [address] Performed By: #### 5 7021-8 ####[facility] [place] [id number] [place] [address] [place] Hematocrit (Bld) [Volume fraction] 38.7 % Low 39.0-51.0 [facility] Comment on above: Order Comment: Speci men Type: BLOOD SPECIMENOrdering Facility: [facility] Address: [address] [place] [address] Performed By: #### 5 7021-8 ####[facility] [id number] [place] [address] [place] Hemoglobin (Bld) [Mass/Vol] 13.2 g/dL Normal 13.0-17.0 [facility] Comment on above: Order Comment: Speci men Type: BLOOD SPECIMENOrdering Facility: [facility] Address: [address] [place] [address] Performed By: #### 5 7021-8 ####[facility] [id number] [place] [address] [place] Immature granulocytes (Bld) [#/Vol] 10*3/uL Normal <0.10 [facility] Comment on above: Order Comment: Speci men Type: BLOOD SPECIMENOrdering Facility: [facility] Address: [address] [place] [address] Performed By: #### 5 7021-8 ####[facility] [id number] [place] [address] [place] [facility] Immature granulocytes/100 WBC (Bld) 0.3 % Normal [facility] Comment on above: Order Comment: Speci men Type: BLOOD SPECIMENOrdering Facility: [facility] Address: [address] [place] [address] Performed By: #### 5 7021-8 ####[facility] [id number] [place] [address] [place] Lymphocytes (Bld) [#/Vol] 0.54 10*3/uL Low 1.00-4.00 [facility] Comment on above: Order Comment: Speci men Type: BLOOD SPECIMENOrdering Facility: [facility] Address: [address] [place] [address] Performed By: #### 5 7021-8 ####[facility] [place] [id number] [place] [address] [place] Lymphocytes/100 WBC (Bld) 7.3 % Normal [facility] Comment on above: Order Comment: Speci men Type: BLOOD SPECIMENOrdering Facility: [facility] Address: [address] [place] [address] Performed By: #### 5 7021-8 ####[facility] [place] [id number] [place] [address] [place] MCH (RBC) [Entitic mass] 30.7 pg Normal 26.0-34.0 [facility] Comment on above: Order Comment: Speci men Type: BLOOD SPECIMENOrdering Facility: [facility] Address: [address] [place] [address] Performed By: #### 5 7021-8 ####[facility] [place] [id number] [place] [address] [place] MCHC (RBC) [Mass/Vol] 34.1 g/dL Normal 30.5-36.0 [facility] Comment on above: Order Comment: Speci men Type: BLOOD SPECIMENOrdering Facility: [facility] Address: [address] [place] [address] Performed By: #### 5 7021-8 ####[facility] [id number] [place] [address] [place] MCV (RBC) [Entitic vol] 90.0 fL Normal 80.0-100.0 [facility] Comment on above: Order Comment: Speci men Type: BLOOD SPECIMENOrdering Facility: [facility] Address: [address] [place] [address] Performed By: #### 5 7021-8 ####[facility] [id number] [place] [address] [place] Monocytes (Bld) [#/Vol] 1.06 10*3/uL High <0.87 [facility] Comment on above: Order Comment: Speci men Type: BLOOD SPECIMENOrdering Facility: [facility] Address: [address] [place] [address] Performed By: #### 5 7021-8 ####[facility] [id number] [place] [address] [place] Monocytes/100 WBC (Bld) 14.3 % Normal [facility] Comment on above: Order Comment: Speci men Type: BLOOD SPECIMENOrdering Facility: [facility] Address: [address] [place] [address] Performed By: #### 5 7021-8 ####[facility] [id number] [place] [address] [place] Neutrophils (Bld) [#/Vol] 5.36 10*3/uL Normal 1.45-7.50 [facility] Comment on above: Order Comment: Speci men Type: BLOOD SPECIMENOrdering Facility: [facility] Address: [address] [place] [address] Performed By: #### 5 7021-8 ####[facility] [id number] [place] [address] [place] Neutrophils/100 WBC (Bld) 72.1 % Normal [facility] Comment on above: Order Comment: Speci men Type: BLOOD SPECIMENOrdering Facility: [facility] Address: [address] [place] [address] Performed By: #### 5 7021-8 ####[facility] [place] [id number] [place] [address] [place] Nucleated RBC (Bld) [#/Vol] 10*3/uL Normal <0.01 [facility] Comment on above: Order Comment: Speci men Type: BLOOD SPECIMENOrdering Facility: [facility] Address: [address] [place] [address] Performed By: #### 5 7021-8 ####[facility] [id number] [place] [address] [place] Nucleated RBC/100 WBC (Bld) [Ratio] 0.0 /100 WBC Normal [facility] Comment on above: Order Comment: Speci men Type: BLOOD SPECIMENOrdering Facility: [facility] Address: [address] [place] [address] Performed By: #### 5 7021-8 ####[facility] [id number] [place] [address] [place] Platelet mean volume (Bld) [Entitic vol] 9.9 fL Normal 9.0-12.7 [facility] Comment on above: Order Comment: Speci men Type: BLOOD SPECIMENOrdering Facility: [facility] Address: [address] [place] [address] Performed By: #### 5 7021-8 ####[facility] [place] [id number] [place] [address] [place] Platelets (Bld) [#/Vol] 219 10*3/uL Normal 150-400 [facility] Comment on above: Order Comment: Speci men Type: BLOOD SPECIMENOrdering Facility: [facility] Address: [address] [place] [address] Performed By: #### 5 7021-8 ####[facility] [id number] [place] [address] [place] RBC (Bld) [#/Vol] 4.30 10*6/uL Normal 4.20-6.00 [facility] Comment on above: Order Comment: Speci men Type: BLOOD SPECIMENOrdering Facility: [facility] Address: [address] [place] [address] Performed By: #### 5 7021-8 ####[facility] [id number] [place] [address] [place] WBC (Bld) [#/Vol] 7.43 10*3/uL Normal 3.70-11.00 [facility] Comment on above: Order Comment: Speci men Type: BLOOD SPECIMENOrdering Facility: [facility] Address: [address] [place] [address] Performed By: #### 5 7021-8 ####[facility] [id number] [place] [address] [place] CRP SerPl-mCncon 03-09-2024 CRP [Mass/Vol] 2.3 mg/dL High <0.9 [facility] Comment on above: Order Comment: Speci men Type: BLOOD SPECIMENOrdering Facility: [facility] Address: [address] [place] [address] Performed By: #### 1 988-5 ####[facility] [id number] [place] [address] [place] CRP [Mass/Vol]on 03-09-2024 Interpretation and review of laboratory results Abnormal [facility] Comprehensive metabolic 2000 panelon 03-09-2024 Albumin [Mass/Vol] 4.1 g/dL 3.9 - 4.9 g/dL [facility] ALP [Catalytic activity/Vol] 252 U/L High 38 - 113 U/L [facility] ALT [Catalytic activity/Vol] 20 U/L 10 - 54 U/L [facility] Anion gap [Moles/Vol] 13 mmol/L 9 - 18 mmol/L [facility] AST [Catalytic activity/Vol] 19 U/L 14 - 40 U/L [facility] Bilirubin [Mass/Vol] 0.2 mg/dL 0.2 - 1 .3 mg/dL [facility] Calcium [Mass/Vol] 9.4 mg/dL 8.5 - 10. 2 mg/dL [facility] Chloride [Moles/Vol] 103 mmol/L 97 - 10 5 mmol/L [facility] CO2 [Moles/Vol] 24 mmol/L 22 - 30 mmol/L [facility] Creatinine [Mass/Vol] 0.98 mg/dL 0.73 - 1.22 mg/dL [facility] GFR/1.73 sq M.predicted among non-blacks MDRD (S/P/Bld) [Vol rate/Area] 85 mL/min/{1.73_m2} - PINF [facility] Comment on above: Estimated Glomerular Filtration Rate [...] 105 mg/dL High 74 - 99 mg/dL [facility] Comment on above: The [place] Diab[employer] Association (ADA) provides guidance for [...] Standards of Medical Care in Diabetes 2016, [place] [employer]. Diabetes Care. 2016.39(Suppl 1). Interpretation and review of laboratory results Abnormal [facility] Potassium [Moles/Vol] 4.3 mmol/L 3.7 - 5.1 mmol/L [facility] Protein [Mass/Vol] 7.3 g/dL 6.3 - 8.0 g/dL [facility] Sodium [Moles/Vol] 140 mmol/L 136 - 144 mmol/L [facility] Urea nitrogen [Mass/Vol] 15 mg/dL 9 - 24 mg/dL [facility] Albumin [Mass/Vol] 4.1 g/dL Normal 3.9-4.9 [facility] Comment on above: Order Comment: Speci men Type: BLOOD SPECIMENOrdering Facility: [facility] Address: [address] [place] [address] Performed By: #### 1 5152-2, 14017-1, 4-1 ####[facility] [id number] [place] [address] [place] ALP [Catalytic activity/Vol] 252 U/L High 38-113 [facility] Comment on above: Order Comment: Dottyi razia Type: BLOOD SPECIMENOrdering Facility: [facility] Address: [address] [place] [address] Performed By: #### 1 5152-2, 47312-1, 3084-1 ####[facility] [id number] [place] [address] [place] ALT [Catalytic activity/Vol] 20 U/L Normal 10-54 [facility] Comment on above: Order Comment: Speci men Type: BLOOD SPECIMENOrdering Facility: [facility] Address: [address] [place] [address] Performed By: #### 1 5152-2, 65914-2, 3084-1 ####[facility] [id number] [place] [address] [place] Anion gap [Moles/Vol] 13 mmol/L Normal 9-18 [facility] Comment on above: Order Comment: Speci men Type: BLOOD SPECIMENOrdering Facility: [facility] Address: [address] [place] [address] Performed By: #### 1 5152-2, 47681-8, 3084-1 ####[facility] [id number] [place] [address] [place] AST [Catalytic activity/Vol] 19 U/L Normal 14-40 [facility] Comment on above: Order Comment: Speci men Type: BLOOD SPECIMENOrdering Facility: [facility] Address: [address] [place] [address] Performed By: #### 1 5152-2, 17686-8, 308-1 ####[facility] [id number] [place] [address] [place] Bilirubin [Mass/Vol] 0.2 mg/dL Normal 0.2-1.3 [facility] Comment on above: Order Comment: Speci men Type: BLOOD SPECIMENOrdering Facility: [facility] Address: [address] [place] [address] Performed By: #### 1 5152-2, 52128-2, 3084-1 ####[facility] [id number] [place] [address] [place] Calcium [Mass/Vol] 9.4 mg/dL Normal 8.5-10.2 [facility] Comment on above: Order Comment: Speci men Type: BLOOD SPECIMENOrdering Facility: [facility] Address: [address] [place] [address] Performed By: #### 1 5152-2, 67508-6, 3084-1 ####[facility] [id number] [place] [address] [place] Chloride [Moles/Vol] 103 mmol/L Normal 97-105 [facility] Comment on above: Order Comment: Speci men Type: BLOOD SPECIMENOrdering Facility: [facility] Address: [address] [place] [address] Performed By: #### 1 5152-2, 66998-5, 3084-1 ####[facility] [id number] [place] [address] [place] CO2 [Moles/Vol] 24 mmol/L Normal 22-30 [facility] Comment on above: Order Comment: Speci men Type: BLOOD SPECIMENOrdering Facility: [facility] Address: [address] [place] [address] Performed By: #### 1 5152-2, 52052-4, 3084-1 ####[facility] [id number] [place] [address] [place] Creatinine [Mass/Vol] 0.98 mg/dL Normal 0.73-1.22 [facility] Comment on above: Order Comment: Speci men Type: BLOOD SPECIMENOrdering Facility: [facility] Address: [address] [place] [address] Performed By: #### 1 5152-2, 47420-5, 3084-1 ####[facility] [id number] [place] [address] [place] Creatinine and Glomerular filtration rate.predicted panel (S/P/Bld) 85 mL/min/1.73m??? Normal >=60 [facility] Comment on above: Order Comment: Speci men Type: BLOOD SPECIMENOrdering Facility: [facility] Address: [address] [place] [address] Result Comment: Carol mated Glomerular Filtration Rate [...] actual GFR. Performed By: #### 1 5152-2, , 3083-11 ####[facility] [id number] [address] [address] [place] Glucose [Mass/Vol] 105 mg/dL High 74-99 [facility] Comment on above: Order Comment: Sara randle Type: BLOOD SPECIMENOrdering Facility: [facility] Address: [address] [place] [address] Result Comment: The [place] [employer] (ADA) provides guidance for cutoff [...] Standards of Medical Care in Diabetes 2016, [place] [employer]. Diabetes Care. 2016.39(Suppl 1). Performed By: #### 1 5152-2, , 3083-11 ####[facility] [id number] [place] [address] [place] Potassium [Moles/Vol] 4.3 mmol/L Normal 3.7-5.1 [facility] Comment on above: Order Comment: Sara randle Type: BLOOD SPECIMENOrdering Facility: [facility] Address: [address] [place] [address] Performed By: #### 1 5152-2, , 3083-11 ####[facility] [id number] [address] [address] [place] Protein [Mass/Vol] 7.3 g/dL Normal 6.3-8.0 [facility] Comment on above: Order Comment: Speci men Type: BLOOD SPECIMENOrdering Facility: [facility] Address: [address] [place] [address] Performed By: #### 1 5152-2, 55954-5, 308-1 ####[facility] [id number] [place] [address] [place] Sodium [Moles/Vol] 140 mmol/L Normal 136-144 [facility] Comment on above: Order Comment: Speci men Type: BLOOD SPECIMENOrdering Facility: [facility] Address: [address] [place] [address] Performed By: #### 1 5152-2, 80644-8, 308-1 ####[facility] [id number] [place] [address] [place] Urea nitrogen [Mass/Vol] 15 mg/dL Normal 9-24 [facility] Comment on above: Order Comment: Speci men Type: BLOOD SPECIMENOrdering Facility: [facility] Address: [address] [place] [address] Performed By: #### 1 5152-2, 69423-0, 3083-1 ####[facility] [id number] [place] [address] [place] IR CENTRAL CATH PLACEMENTon 03-09-2024 IR CENTRAL CATH PLACEMENT Normal [facility] LACTATE DEHYDROGENASEon 05-0 LDH [Catalytic activity/Vol] 214 U/L 135 - 225 U/L [facility] LDH SerPl-cCncon 03-09-2024 LDH [Catalytic activity/Vol] 214 U/L Normal 135-225 [facility] Comment on above: Order Comment: Speci men Type: BLOOD SPECIMENOrdering Facility: [facility] Address: [address] [place] [address] Performed By: #### 2 532-0 ####[facility] [id number] [place] [address] [place] LDH [Catalytic activity/Vol] on 03-09-2024 Interpretation and review of laboratory results Normal [facility] MAGNESIUMon 03-09-2024 Magnesium [Mass/Vol] 2.1 mg/dL 1.7 - 2 .3 mg/dL [facility] Magnesium SerPl-mCncon 03-09 Magnesium [Mass/Vol] 2.1 mg/dL Normal 1.7-2.3 [facility] Comment on above: Order Comment: Speci men Type: BLOOD SPECIMENOrdering Facility: [facility] Address: [address] [place] [address] Performed By: #### 1 9123-9, 2777-1 ####[facility] [id number] [place] [address] [place] No Panel Informationon 03-09 Interpretation and review of laboratory results Normal [facility] Interpretation and review of laboratory results Normal [facility] PHOSPHORUS INORGANICon 03-09 Phosphate [Mass/Vol] 3.6 mg/dL 2.7 - 4 .8 mg/dL [facility] Phosphate SerPl-ncon 03-09 Phosphate [Mass/Vol] 3.6 mg/dL Normal 2.7-4.8 [facility] Comment on above: Order Comment: Speci men Type: BLOOD SPECIMENOrdering Facility: [facility] Address: [address] [place] [address] Performed By: #### 1 9123-9, 2777-1 ####[facility] [id number] [place] [address] [place] URIC ACIDon 03-09-2024 Urate [Mass/Vol] 6.7 mg/dL 4.0 - 8.1 mg/dL [facility] Urate SerPl-mCncon Urate [Mass/Vol] 6.7 mg/dL Normal 4.0-8.1 [facility] Comment on above: Order Comment: Speci men Type: BLOOD SPECIMENOrdering Facility: [facility] Address: [address] [place] [address] Performed By: #### 1 5152-2, 56503-0, 3084-1 ####[facility] [id number] [place] [address] [place] BLOOD TB SCREENon 03-08-2024 M. tuberculosis tuberculin stim IFN-g Ql (Bld) Negative Normal [facility] Comment on above: Order Comment: Speci men Type: BLOOD SPECIMENOrdering Facility: [facility] Address: [address] [place] [address] Performed By: #### I NFTBP ####[facility] [id number] [place] [address] [place] MITOGEN MINUS NIL >9.95 Normal >=0.50 [facility] Comment on above: Order Comment: Speci men Type: BLOOD SPECIMENOrdering Facility: [facility] Address: [address] [place] [address] Performed By: #### I NFTBP ####[facility] [id number] [place] [address] [place] TB GAMMA INTERPRETATION Normal [facility] Comment on above: Order Comment: Speci men Type: BLOOD SPECIMENOrdering Facility: [facility] Address: [address] [place] [address] Performed By: #### I NFTBP ####[facility] [id number] [place] [address] [place] TB NIL 0.05 IU/mL Normal <=8.00 [facility] Comment on above: Order Comment: Speci men Type: BLOOD SPECIMENOrdering Facility: [facility] Address: [address] [place] [address] Performed By: #### I NFTBP ####[facility] [id number] [place] [address] [place] TB1 AG MINUS NIL 0.00 IU/mL Normal <0.35 [facility] Comment on above: Order Comment: Speci men Type: BLOOD SPECIMENOrdering Facility: [facility] Address: [address] [place] [address] Performed By: #### I NFTBP ####[facility] LABCLIA [id number] [address] [place] TB2 AG MINUS NIL 0.00 IU/mL Normal <0.35 [facility] Comment on above: Order Comment: Speci men Type: BLOOD SPECIMENOrdering Facility: [facility] Address: [address] [place] [address] Performed By: #### I NFTBP ####[facility] LABCLIA [id number] [address] [place] C-REACTIVE PROTEINon 024 CRP [Mass/Vol] 1.8 mg/dL High [facility] - 0.9 mg/dL [facility] CBC W Auto Differential pane l (Bld)on 03-08-2024 Basophils (Bld) [#/Vol] 0.07 10*3/uL [facility] Basophils/100 WBC (Bld) 0.9 % [facility] Differential cell count method Nom (Bld) Auto [facility] Eosinophils (Bld) [#/Vol] 0.44 10*3/uL [facility] Eosinophils/100 WBC (Bld) 5.5 % [facility] Erythrocyte distribution width (RBC) [Ratio] 12.7 % 11.5 - 15.0 % [facility] Hematocrit (Bld) [Volume fraction] 40.1 % 39.0 - 51.0 % [facility] Hemoglobin (Bld) [Mass/Vol] 13.8 g/dL 13.0 - 17.0 g/dL [facility] Immature granulocytes (Bld) [#/Vol] 0.03 10*3/uL [facility] Immature granulocytes/100 WBC (Bld) 0.4 % [facility] Interpretation and review of laboratory results Abnormal [facility] Lymphocytes (Bld) [#/Vol] 0.48 10*3/uL Low [facility] Lymphocytes/100 WBC (Bld) 6.0 % [facility] MCH (RBC) [Entitic mass] 31.1 pg 26.0 - 34.0 pg [facility] MCHC (RBC) [Mass/Vol] 34.4 g/dL 30.5 - 36.0 g/dL [facility] MCV (RBC) [Entitic vol] 90.3 fL 80.0 - 100.0 fL [facility] Monocytes (Bld) [#/Vol] 1.16 10*3/uL High [facility] Monocytes/100 WBC (Bld) 14.4 % [facility] Neutrophils (Bld) [#/Vol] 5.86 10*3/uL [facility] Neutrophils/100 WBC (Bld) 72.8 % [facility] Nucleated RBC (Bld) [#/Vol] [facility] Nucleated RBC/100 WBC (Bld) [Ratio] 0.0 % /100 WBC [facility] Platelet mean volume (Bld) [Entitic vol] 11.0 fL 9.0 - 12.7 fL [facility] Platelets (Bld) [#/Vol] 173 10*3/uL [facility] RBC (Bld) [#/Vol] 4.44 10*6/uL 4.20 - 6.00 m/uL [facility] WBC (Bld) [#/Vol] 8.04 10*3/uL [facility] Basophils (Bld) [#/Vol] 0.07 10*3/uL Normal <0.11 [facility] Comment on above: Order Comment: Speci men Type: BLOOD SPECIMENOrdering Facility: [facility] Address: [address] [place] [address] Performed By: #### 5 7021-8 ####[facility] [id number] [address] [place] Basophils/100 WBC (Bld) 0.9 % Normal [facility] Comment on above: Order Comment: Speci men Type: BLOOD SPECIMENOrdering Facility: [facility] Address: [address] [place] [address] Performed By: #### 5 7021-8 ####[facility] [id number] [place] [address] [place] Differential cell count method Nom (Bld) Auto Normal [facility] Comment on above: Order Comment: Speci men Type: BLOOD SPECIMENOrdering Facility: [facility] Address: [address] [place] [address] Performed By: #### 5 7021-8 ####[facility] [id number] [place] [address] [place] Eosinophils (Bld) [#/Vol] 0.44 10*3/uL Normal <0.46 [facility] Comment on above: Order Comment: Speci men Type: BLOOD SPECIMENOrdering Facility: [facility] Address: [address] [place] [address] Performed By: #### 5 7021-8 ####[facility] [id number] [place] [address] [place] Eosinophils/100 WBC (Bld) 5.5 % Normal [facility] Comment on above: Order Comment: Speci men Type: BLOOD SPECIMENOrdering Facility: [facility] Address: [address] [place] [address] Performed By: #### 5 7021-8 ####[facility] [id number] [place] [address] [place] Erythrocyte distribution width (RBC) [Ratio] 12.7 % Normal 11.5-15.0 [facility] Comment on above: Order Comment: Speci men Type: BLOOD SPECIMENOrdering Facility: [facility] Address: [address] [place] [address] Performed By: #### 5 7021-8 ####[facility] [id number] [place] [address] [place] Hematocrit (Bld) [Volume fraction] 40.1 % Normal 39.0-51.0 [facility] Comment on above: Order Comment: Speci men Type: BLOOD SPECIMENOrdering Facility: [facility] Address: [address] [place] [address] Performed By: #### 5 7021-8 ####[facility] [id number] [place] [address] [place] Hemoglobin (Bld) [Mass/Vol] 13.8 g/dL Normal 13.0-17.0 [facility] Comment on above: Order Comment: Speci men Type: BLOOD SPECIMENOrdering Facility: [facility] Address: [address] [place] [address] Performed By: #### 5 7021-8 ####[facility] [id number] [place] [address] [place] Immature granulocytes (Bld) [#/Vol] 0.03 10*3/uL Normal <0.10 [facility] Comment on above: Order Comment: Speci men Type: BLOOD SPECIMENOrdering Facility: [facility] Address: [address] [place] [address] Performed By: #### 5 7021-8 ####[facility] [id number] [place] [address] [place] Immature granulocytes/100 WBC (Bld) 0.4 % Normal [facility] Comment on above: Order Comment: Speci men Type: BLOOD SPECIMENOrdering Facility: [facility] Address: [address] [place] [address] Performed By: #### 5 7021-8 ####[facility] [id number] [place] [address] [place] Lymphocytes (Bld) [#/Vol] 0.48 10*3/uL Low 1.00-4.00 [facility] Comment on above: Order Comment: Speci men Type: BLOOD SPECIMENOrdering Facility: [facility] Address: [address] [place] [address] Performed By: #### 5 7021-8 ####[facility] [id number] [place] [address] [place] Lymphocytes/100 WBC (Bld) 6.0 % Normal [facility] Comment on above: Order Comment: Speci men Type: BLOOD SPECIMENOrdering Facility: [facility] Address: [address] [place] [address] Performed By: #### 5 7021-8 ####[facility] [id number] [place] [address] [place] MCH (RBC) [Entitic mass] 31.1 pg Normal 26.0-34.0 [facility] Comment on above: Order Comment: Speci men Type: BLOOD SPECIMENOrdering Facility: [facility] Address: [address] [place] [address] Performed By: #### 5 7021-8 ####[facility] [id number] [place] [address] [place] MCHC (RBC) [Mass/Vol] 34.4 g/dL Normal 30.5-36.0 [facility] Comment on above: Order Comment: Speci men Type: BLOOD SPECIMENOrdering Facility: [facility] Address: [address] [place] [address] Performed By: #### 5 7021-8 ####[facility] [id number] [place] [address] [place] MCV (RBC) [Entitic vol] 90.3 fL Normal 80.0-100.0 [facility] Comment on above: Order Comment: Speci men Type: BLOOD SPECIMENOrdering Facility: [facility] Address: [address] [place] [address] Performed By: #### 5 7021-8 ####[facility] [id number] [place] [address] [place] Monocytes (Bld) [#/Vol] 1.16 10*3/uL High <0.87 [facility] Comment on above: Order Comment: Speci men Type: BLOOD SPECIMENOrdering Facility: [facility] Address: [address] [place] [address] Performed By: #### 5 7021-8 ####[facility] [id number] [place] [address] [place] Monocytes/100 WBC (Bld) 14.4 % Normal [facility] Comment on above: Order Comment: Speci men Type: BLOOD SPECIMENOrdering Facility: [facility] Address: [address] [place] [address] Performed By: #### 5 7021-8 ####[facility] [id number] [place] [address] [place] Neutrophils (Bld) [#/Vol] 5.86 10*3/uL Normal 1.45-7.50 [facility] Comment on above: Order Comment: Speci men Type: BLOOD SPECIMENOrdering Facility: [facility] Address: [address] [place] [address] Performed By: #### 5 7021-8 ####[facility] [id number] [place] [address] [place] Neutrophils/100 WBC (Bld) 72.8 % Normal [facility] Comment on above: Order Comment: Speci men Type: BLOOD SPECIMENOrdering Facility: [facility] Address: [address] [place] [address] Performed By: #### 5 7021-8 ####[facility] [id number] [place] [address] [place] Nucleated RBC (Bld) [#/Vol] 10*3/uL Normal <0.01 [facility] Comment on above: Order Comment: Speci men Type: BLOOD SPECIMENOrdering Facility: [facility] Address: [address] [place] [address] Performed By: #### 5 7021-8 ####[facility] [id number] [place] [address] [place] Nucleated RBC/100 WBC (Bld) [Ratio] 0.0 /100 WBC Normal [facility] Comment on above: Order Comment: Speci men Type: BLOOD SPECIMENOrdering Facility: [facility] Address: [address] [place] [address] Performed By: #### 5 7021-8 ####[facility] [id number] [place] [address] [place] Platelet mean volume (Bld) [Entitic vol] 11.0 fL Normal 9.0-12.7 [facility] Comment on above: Order Comment: Speci men Type: BLOOD SPECIMENOrdering Facility: [facility] Address: [address] [place] [address] Performed By: #### 5 7021-8 ####[facility] [id number] [place] [address] [place] Platelets (Bld) [#/Vol] 173 10*3/uL Normal 150-400 [facility] Comment on above: Order Comment: Speci men Type: BLOOD SPECIMENOrdering Facility: [facility] Address: [address] [place] [address] Performed By: #### 5 7021-8 ####[facility] [id number] [place] [address] [place] RBC (Bld) [#/Vol] 4.44 10*6/uL Normal 4.20-6.00 [facility] Comment on above: Order Comment: Speci men Type: BLOOD SPECIMENOrdering Facility: [facility] Address: [address] [place] [address] Performed By: #### 5 7021-8 ####[facility] [id number] [id number] [address] [place] WBC (Bld) [#/Vol] 8.04 10*3/uL Normal 3.70-11.00 [facility] Comment on above: Order Comment: Speci men Type: BLOOD SPECIMENOrdering Facility: [facility] Address: [address] [place] [address] Performed By: #### 5 7021-8 ####[facility] [id number] [place] [address] [place] CNOVSPon 03-08-2024 CNOVSP Normal [facility] CRP SerPl-mCncon 03-08-2024 CRP [Mass/Vol] 1.8 mg/dL High <0.9 [facility] Comment on above: Order Comment: Speci men Type: BLOOD SPECIMENOrdering Facility: [facility] Address: [address] [place] [address] Performed By: #### 1 988-5 ####[facility] LABCLIA [id number] [place] [address] [place] CRP [Mass/Vol]on 03-08-2024 Interpretation and review of laboratory results Abnormal [facility] Comprehensive metabolic 2000 panelon 03-08-2024 Albumin [Mass/Vol] 4.3 g/dL 3.9 - 4.9 g/dL [facility] ALP [Catalytic activity/Vol] 238 U/L High 38 - 113 U/L [facility] ALT [Catalytic activity/Vol] 18 U/L 10 - 54 U/L [facility] Anion gap [Moles/Vol] 11 mmol/L 9 - 18 mmol/L [facility] [facility] AST [Catalytic activity/Vol] 17 U/L 14 - 40 U/L [facility] Bilirubin [Mass/Vol] 0.2 mg/dL 0.2 - 1 .3 mg/dL [facility] Calcium [Mass/Vol] 9.9 mg/dL 8.5 - 10. 2 mg/dL [facility] Chloride [Moles/Vol] 104 mmol/L 97 - 10 5 mmol/L [facility] CO2 [Moles/Vol] 25 mmol/L 22 - 30 mmol/L [facility] Creatinine [Mass/Vol] 0.96 mg/dL 0.73 - 1.22 mg/dL [facility] GFR/1.73 sq M.predicted among non-blacks MDRD (S/P/Bld) [Vol rate/Area] 87 mL/min/{1.73_m2} - PINF [facility] Comment on above: Estimated Glomerular Filtration Rate [...] [Mass/Vol] 93 mg/dL 74 - 99 mg/dL [facility] Comment on above: The [place] Diab[employer] Association (ADA) provides guidance for [...] Standards of Medical Care in Diabetes 2016, [place] [employer]. Diabetes Care. 2016.39(Suppl 1). Interpretation and review of laboratory results Abnormal [facility] Potassium [Moles/Vol] 4.2 mmol/L 3.7 - 5.1 mmol/L [facility] Protein [Mass/Vol] 7.6 g/dL 6.3 - 8.0 g/dL [facility] Sodium [Moles/Vol] 140 mmol/L 136 - 144 mmol/L [facility] Urea nitrogen [Mass/Vol] 16 mg/dL 9 - 24 mg/dL [facility] Albumin [Mass/Vol] 4.3 g/dL Normal 3.9-4.9 [facility] Comment on above: Order Comment: Speci men Type: BLOOD SPECIMENOrdering Facility: [facility] Address: [address] [place] [address] Performed By: #### 2 4323-8, 72063-2, 4-1 ####[facility] [id number] [place] [address] [place] ALP [Catalytic activity/Vol] 238 U/L High 38-113 [facility] Comment on above: Order Comment: Speci men Type: BLOOD SPECIMENOrdering Facility: [facility] Address: [address] [place] [address] Performed By: #### 2 4323-8, 64822-8, 3083- ####[facility] [id number] [place] [address] [place] ALT [Catalytic activity/Vol] 18 U/L Normal 10-54 [facility] Comment on above: Order Comment: Speci men Type: BLOOD SPECIMENOrdering Facility: [facility] Address: [address] [place] [address] Performed By: #### 2 4323-8, , 3083-11 ####[facility] [id number] [place] [address] [place] Anion gap [Moles/Vol] 11 mmol/L Normal 9-18 [facility] Comment on above: Order Comment: Speci men Type: BLOOD SPECIMENOrdering Facility: [facility] Address: [address] [place] [address] Performed By: #### 2 4323-8, , 3083-11 ####[facility] [id number] [place] [address] [place] AST [Catalytic activity/Vol] 17 U/L Normal 14-40 [facility] Comment on above: Order Comment: Speci men Type: BLOOD SPECIMENOrdering Facility: [facility] Address: [address] [place] [address] Performed By: #### 2 4323-8, 88342-1, 3083-1 ####[facility] [id number] [address] [address] [place] Bilirubin [Mass/Vol] 0.2 mg/dL Normal 0.2-1.3 [facility] Comment on above: Order Comment: Speci men Type: BLOOD SPECIMENOrdering Facility: [facility] Address: [address] [place], [place] [address] Performed By: #### 2 4323-8, 00647-2, 3083- ####[facility] [id number] [place] [address] [place] Calcium [Mass/Vol] 9.9 mg/dL Normal 8.5-10.2 [facility] Comment on above: Order Comment: Speci men Type: BLOOD SPECIMENOrdering Facility: [facility] Address: [address] [place] [address] Performed By: #### 2 4323-8, , 3083-11 ####[facility] [id number] [place] [address] [place] Chloride [Moles/Vol] 104 mmol/L Normal 97-105 [facility] Comment on above: Order Comment: Speci men Type: BLOOD SPECIMENOrdering Facility: [facility] Address: [address] [place] [address] Performed By: #### 2 4323-8, , 3083- ####[facility] [id number] [place] [id number] [place] CO2 [Moles/Vol] 25 mmol/L Normal 22-30 [facility] Comment on above: Order Comment: Speci men Type: BLOOD SPECIMENOrdering Facility: [facility] Address: [address] [place], [place] [address] Performed By: #### 2 4323-8, 42993-2, 3083-1 ####[facility] [id number] [place] [id number] [place] Creatinine [Mass/Vol] 0.96 mg/dL Normal 0.73-1.22 [facility] Comment on above: Order Comment: Sara randle Type: BLOOD SPECIMENOrdering Facility: [facility] Address: [address] [place] [address] Performed By: #### 2 4323-8, 69509-5, 3083-1 ####[facility] [id number] [place] [address] STATES [place] [facility] Creatinine and Glomerular filtration rate.predicted panel (S/P/Bld) 87 mL/min/1.73m??? Normal >=60 [facility] Comment on above: Order Comment: Sara randle Type: BLOOD SPECIMENOrdering Facility: [facility] Address: [address] [place] [address] Result Comment: Carol mated Glomerular Filtration Rate [...] actual GFR. Performed By: #### 2 4323-8, 73826-0, 3083-11 ####[facility] [id number] [place] [address] [place] Glucose [Mass/Vol] 93 mg/dL Normal 74-99 [facility] Comment on above: Order Comment: Sara randle Type: BLOOD SPECIMENOrdering Facility: [facility] Address: [address] [place] [address] Result Comment: The [place] Diabetes Association (ADA) provides guidance for cutoff [...] Standards of Medical Care in Diabetes 2016, [place] [employer]. Diabetes Care. 2016.39(Suppl 1). Performed By: #### 2 4323-8, 32588-7, 3083- ####[facility] [id number] [place] [address] [place] Potassium [Moles/Vol] 4.2 mmol/L Normal 3.7-5.1 [facility] Comment on above: Order Comment: Speci men Type: BLOOD SPECIMENOrdering Facility: [facility] Address: [address] [place] [address] Performed By: #### 2 4323-8, , 3083-11 ####[facility] [id number] [place] [address] [place] Protein [Mass/Vol] 7.6 g/dL Normal 6.3-8.0 [facility] Comment on above: Order Comment: Speci men Type: BLOOD SPECIMENOrdering Facility: [facility] Address: [address] [place] [address] Performed By: #### 2 4323-8, , 3083-11 ####[facility] [id number] [place] [address] [place] Sodium [Moles/Vol] 140 mmol/L Normal 136-144 [facility] Comment on above: Order Comment: Speci men Type: BLOOD SPECIMENOrdering Facility: [facility] Address: [address] [place] [address] Performed By: #### 2 4323-8, , 3083-11 ####[facility] [id number] [place] [address] [place] Urea nitrogen [Mass/Vol] 16 mg/dL Normal 9-24 [facility] Comment on above: Order Comment: Speci men Type: BLOOD SPECIMENOrdering Facility: [facility] Address: [address] [place] [address] Performed By: #### 2 4323-8, 23413-6, 3083-1 ####[facility] [id number] [place] [address] [place] LACTATE DEHYDROGENASEon 05-0 LDH [Catalytic activity/Vol] 228 U/L High 135 - 225 U/L [facility] LDH SerPl-cCncon 03-08-2024 LDH [Catalytic activity/Vol] 228 U/L High 135-225 [facility] Comment on above: Order Comment: Speci men Type: BLOOD SPECIMENOrdering Facility: [facility] Address: [address] [place] [address] Performed By: #### 2 532-0 ####[facility] [id number] [place] [address] [place] LDH [Catalytic activity/Vol] on 03-08-2024 Interpretation and review of laboratory results Abnormal [facility] MAGNESIUMon 03-08-2024 Magnesium [Mass/Vol] 2.1 mg/dL 1.7 - 2 .3 mg/dL [facility] Magnesium SerPl-mCncon 03-08 Magnesium [Mass/Vol] 2.1 mg/dL Normal 1.7-2.3 [facility] Comment on above: Order Comment: Speci men Type: BLOOD SPECIMENOrdering Facility: [facility] Address: [address] [place] [address] Performed By: #### 2 4323-8, 82701-6, 3083-1 ####[facility] [id number] [place] [address] [place] No Panel Informationon 03-08 Interpretation and review of laboratory results Normal [facility] PHOSPHORUS INORGANICon 03-08 Phosphate [Mass/Vol] 3.6 mg/dL 2.7 - 4 .8 mg/dL [facility] Phosphate [facility] 03-08 Phosphate [Mass/Vol] 3.6 mg/dL Normal 2.7-4.8 [facility] Comment on above: Order Comment: Speci men Type: BLOOD SPECIMENOrdering Facility: [facility] Address: [address] [place] [address] Performed By: #### 2 777-1 ####[facility] [id number] [place] [address] [place] Phosphate [Mass/Vol]on 03-08 Interpretation and review of laboratory results Normal [facility] URIC ACIDon 03-08-2024 Urate [Mass/Vol] 6.5 mg/dL 4.0 - 8.1 mg/dL [facility] Urate [facility] Urate [Mass/Vol] 6.5 mg/dL Normal 4.0-8.1 [facility] Comment on above: Order Comment: Speci men Type: BLOOD SPECIMENOrdering Facility: [facility] Address: [address] [place] [address] Performed By: #### 2 4323-8, 37229-2, 3084-1 ####[facility] [id number] [place] [address] [place] NURSING PROGon 03-02-2024 NURSING PROG Normal [facility] CNPNon 03-01-2024 CNPN Normal [facility] CNPNon 02-26-2024 CNPN Normal [facility] CNPNon 02-25-2024 CNPN Normal [facility] ACTIVATED PARTIAL THROMBOPLA STIN TIMEon 02-24-2024 aPTT Coag (PPP) [Time] 24.0 s [facility] CBC W Auto Differential pane l (Bld)on 02-24-2024 Basophils (Bld) [#/Vol] 0.07 10*3/uL NINF [facility] Basophils/100 WBC (Bld) 1.2 % [facility] Differential cell count method Nom (Bld) Auto [facility] Eosinophils (Bld) [#/Vol] 0.27 10*3/uL [facility] Eosinophils/100 WBC (Bld) 4.5 % [facility] Erythrocyte distribution width (RBC) [Ratio] 13.2 % 11.5 - 15.0 % [facility] Hematocrit (Bld) [Volume fraction] 40.2 % 39.0 - 51.0 % [facility] Hemoglobin (Bld) [Mass/Vol] 13.3 g/dL 13.0 - 17.0 g/dL [facility] Immature granulocytes (Bld) [#/Vol] 0.03 10*3/uL [facility] Immature granulocytes/100 WBC (Bld) 0.5 % [facility] Interpretation and review of laboratory results Abnormal [facility] Lymphocytes (Bld) [#/Vol] 0.46 10*3/uL Low [facility] Lymphocytes/100 WBC (Bld) 7.6 % [facility] MCH (RBC) [Entitic mass] 31.1 pg 26.0 - 34.0 pg [facility] MCHC (RBC) [Mass/Vol] 33.1 g/dL 30.5 - 36.0 g/dL [facility] MCV (RBC) [Entitic vol] 93.9 fL 80.0 - 100.0 fL [facility] Monocytes (Bld) [#/Vol] 0.80 10*3/uL [facility] Monocytes/100 WBC (Bld) 13.3 % [facility] Neutrophils (Bld) [#/Vol] 4.39 10*3/uL [facility] Neutrophils/100 WBC (Bld) 72.9 % [facility] Nucleated RBC (Bld) [#/Vol] [facility] Nucleated RBC/100 WBC (Bld) [Ratio] 0.0 % /100 WBC [facility] Platelet mean volume (Bld) [Entitic vol] 9.8 fL 9.0 - 12.7 fL [facility] Platelets (Bld) [#/Vol] 243 10*3/uL [facility] RBC (Bld) [#/Vol] 4.28 10*6/uL 4.20 - 6.00 m/uL [facility] WBC (Bld) [#/Vol] 6.02 10*3/uL [facility] Basophils (Bld) [#/Vol] 0.07 10*3/uL Normal <0.11 [facility] Comment on above: Order Comment: Speci men Type: BLOOD SPECIMENOrdering Facility: [facility] Address: [address] [place] [address] Performed By: #### 5 7021-8 ####[facility] [id number] [place] [address] [place] Basophils/100 WBC (Bld) 1.2 % Normal [facility] Comment on above: Order Comment: Speci men Type: BLOOD SPECIMENOrdering Facility: [facility] Address: [address] [place] [address] Performed By: #### 5 7021-8 ####[facility] [id number] [place] [address] [place] Differential cell count method Nom (Bld) Auto Normal [facility] Comment on above: Order Comment: Speci men Type: BLOOD SPECIMENOrdering Facility: [facility] Address: [address] [place] [address] Performed By: #### 5 7021-8 ####[facility] [id number] [place] [address] [place] Eosinophils (Bld) [#/Vol] 0.27 10*3/uL Normal <0.46 [facility] Comment on above: Order Comment: Speci men Type: BLOOD SPECIMENOrdering Facility: [facility] Address: [address] [place] [address] Performed By: #### 5 7021-8 ####[facility] [id number] [place] [address] [place] Eosinophils/100 WBC (Bld) 4.5 % Normal [facility] Comment on above: Order Comment: Speci men Type: BLOOD SPECIMENOrdering Facility: [facility] Address: [address] [place] [address] Performed By: #### 5 7021-8 ####[facility] [id number] [place] [address] [place] Erythrocyte distribution width (RBC) [Ratio] 13.2 % Normal 11.5-15.0 [facility] Comment on above: Order Comment: Speci men Type: BLOOD SPECIMENOrdering Facility: [facility] Address: [address] [place] [address] Performed By: #### 5 7021-8 ####[facility] [id number] [place] [address] [place] Hematocrit (Bld) [Volume fraction] 40.2 % Normal 39.0-51.0 [facility] Comment on above: Order Comment: Speci men Type: BLOOD SPECIMENOrdering Facility: [facility] Address: [address] [place] [address] Performed By: #### 5 7021-8 ####[facility] [place] [id number] [place] [address] [place] Hemoglobin (Bld) [Mass/Vol] 13.3 g/dL Normal 13.0-17.0 [facility] Comment on above: Order Comment: Speci men Type: BLOOD SPECIMENOrdering Facility: [facility] Address: [address] [place] [address] Performed By: #### 5 7021-8 ####[facility] [id number] [place] [address] [place] Immature granulocytes (Bld) [#/Vol] 0.03 10*3/uL Normal <0.10 [facility] Comment on above: Order Comment: Speci men Type: BLOOD SPECIMENOrdering Facility: [facility] Address: [address] [place] [address] Performed By: #### 5 7021-8 ####[facility] [id number] [place] [address] [place] Immature granulocytes/100 WBC (Bld) 0.5 % Normal [facility] Comment on above: Order Comment: Speci men Type: BLOOD SPECIMENOrdering Facility: [facility] Address: [address] [place] [address] Performed By: #### 5 7021-8 ####[facility] [id number] [place] [address] [place] Lymphocytes (Bld) [#/Vol] 0.46 10*3/uL Low 1.00-4.00 [facility] Comment on above: Order Comment: Speci men Type: BLOOD SPECIMENOrdering Facility: [facility] Address: [address] [place] [address] Performed By: #### 5 7021-8 ####[facility] [id number] [place] [address] [place] Lymphocytes/100 WBC (Bld) 7.6 % Normal [facility] Comment on above: Order Comment: Speci men Type: BLOOD SPECIMENOrdering Facility: [facility] Address: [address] [place] [address] Performed By: #### 5 7021-8 ####[facility] [id number] [place] [address] [place] MCH (RBC) [Entitic mass] 31.1 pg Normal 26.0-34.0 [facility] Comment on above: Order Comment: Speci men Type: BLOOD SPECIMENOrdering Facility: [facility] Address: [address] [place] [address] Performed By: #### 5 7021-8 ####[facility] [id number] [place] [address] [place] MCHC (RBC) [Mass/Vol] 33.1 g/dL Normal 30.5-36.0 [facility] Comment on above: Order Comment: Speci men Type: BLOOD SPECIMENOrdering Facility: [facility] Address: [address] [place], [place] [address] Performed By: #### 5 7021-8 ####[facility] [id number] [place] [address] [place] MCV (RBC) [Entitic vol] 93.9 fL Normal 80.0-100.0 [facility] Comment on above: Order Comment: Speci men Type: BLOOD SPECIMENOrdering Facility: [facility] Address: [address] [place] [address] Performed By: #### 5 7021-8 ####[facility] [id number] [place] [address] [place] Monocytes (Bld) [#/Vol] 0.80 10*3/uL Normal <0.87 [facility] Comment on above: Order Comment: Speci men Type: BLOOD SPECIMENOrdering Facility: [facility] Address: [address] [place] [address] Performed By: #### 5 7021-8 ####[facility] [place] [place] [id number] [place] [address] [place] Monocytes/100 WBC (Bld) 13.3 % Normal [facility] Comment on above: Order Comment: Speci men Type: BLOOD SPECIMENOrdering Facility: [facility] Address: [address] [place] [address] Performed By: #### 5 7021-8 ####[facility] [id number] [place] [address] [place] Neutrophils (Bld) [#/Vol] 4.39 10*3/uL Normal 1.45-7.50 [facility] Comment on above: Order Comment: Speci men Type: BLOOD SPECIMENOrdering Facility: [facility] Address: [address] [place] [address] Performed By: #### 5 7021-8 ####[facility] [id number] [address] [id number] [address] [place] Neutrophils/100 WBC (Bld) 72.9 % Normal [facility] Comment on above: Order Comment: Speci men Type: BLOOD SPECIMENOrdering Facility: [facility] Address: [address] [place] [address] Performed By: #### 5 7021-8 ####[facility] [id number] [place] [address] [place] Nucleated RBC (Bld) [#/Vol] 10*3/uL Normal <0.01 [facility] Comment on above: Order Comment: Speci men Type: BLOOD SPECIMENOrdering Facility: [facility] Address: [address] [place] [address] Performed By: #### 5 7021-8 ####[facility] [id number] [place] [address] [place] Nucleated RBC/100 WBC (Bld) [Ratio] 0.0 /100 WBC Normal [facility] Comment on above: Order Comment: Speci men Type: BLOOD SPECIMENOrdering Facility: [facility] Address: [address] [place] [address] Performed By: #### 5 7021-8 ####[facility] [id number] [place] [address] [place] Platelet mean volume (Bld) [Entitic vol] 9.8 fL Normal 9.0-12.7 [facility] Comment on above: Order Comment: Speci men Type: BLOOD SPECIMENOrdering Facility: [facility] Address: [address] [place] [address] Performed By: #### 5 7021-8 ####[facility] [place] [id number] [place] [address] [place] Platelets (Bld) [#/Vol] 243 10*3/uL Normal 150-400 [facility] Comment on above: Order Comment: Speci men Type: BLOOD SPECIMENOrdering Facility: [facility] Address: [address] [place] [address] Performed By: #### 5 7021-8 ####[facility] [id number] [place] [address] [place] RBC (Bld) [#/Vol] 4.28 10*6/uL Normal 4.20-6.00 [facility] Comment on above: Order Comment: Speci men Type: BLOOD SPECIMENOrdering Facility: [facility] Address: [address] [place] [address] Performed By: #### 5 7021-8 ####[facility] [id number] [place] [address] [place] WBC (Bld) [#/Vol] 6.02 10*3/uL Normal 3.70-11.00 [facility] Comment on above: Order Comment: Speci men Type: BLOOD SPECIMENOrdering Facility: [facility] Address: [address] [place] [address] Performed By: #### 5 7021-8 ####[facility] [id number] [place] [address] [place] CNNURSEon 02-24-2024 CNNURSE Normal [facility] metabolic 2000 panelon 02-24-2024 Albumin [Mass/Vol] 4.2 g/dL 3.9 - 4.9 g/dL [facility] ALP [Catalytic activity/Vol] 201 U/L High 38 - 113 U/L [facility] ALT [Catalytic activity/Vol] 18 U/L 10 - 54 U/L [facility] Anion gap [Moles/Vol] 11 mmol/L 9 - 18 mmol/L [facility] AST [Catalytic activity/Vol] 19 U/L 14 - 40 U/L [facility] Bilirubin [Mass/Vol] 0.2 mg/dL 0.2 - 1 .3 mg/dL [facility] Calcium [Mass/Vol] 9.6 mg/dL 8.5 - 10. 2 mg/dL [facility] Chloride [Moles/Vol] 107 mmol/L High 97 - 10 5 mmol/L [facility] CO2 [Moles/Vol] 23 mmol/L 22 - 30 mmol/L [facility] Creatinine [Mass/Vol] 0.94 mg/dL 0.73 - 1.22 mg/dL [facility] GFR/1.73 sq M.predicted among non-blacks MDRD (S/P/Bld) [Vol rate/Area] 89 mL/min/{1.73_m2} - PINF [facility] Comment on above: Estimated Glomerular Filtration Rate [...] 100 mg/dL High 74 - 99 mg/dL [facility] Comment on above: The [place] Diabete s Association (ADA) provides guidance for [...] Standards of Medical Care in Diabetes 2016, [place] [employer] Association. Diabetes Care. 2016.39(Suppl 1). Interpretation and review of laboratory results Abnormal [facility] Potassium [Moles/Vol] 4.6 mmol/L 3.7 - 5.1 mmol/L [facility] Protein [Mass/Vol] 7.5 g/dL 6.3 - 8.0 g/dL [facility] Sodium [Moles/Vol] 141 mmol/L 136 - 144 mmol/L [facility] Urea nitrogen [Mass/Vol] 15 mg/dL 9 - 24 mg/dL [facility] Albumin [Mass/Vol] 4.2 g/dL Normal 3.9-4.9 [facility] Comment on above: Order Comment: Speci men Type: BLOOD SPECIMENOrdering Facility: [facility] Address: [address] [place], [place] [address] Performed By: #### 2 4323-8, ####[facility] [id number] [place] [address] [place] ALP [Catalytic activity/Vol] 201 U/L High 38-113 [facility] Comment on above: Order Comment: Speci men Type: BLOOD SPECIMENOrdering Facility: [facility] Address: [address] [place] [address] Performed By: #### 2 4323-8, ####[facility] [place] [place] [id number] [place] [address] [place] ALT [Catalytic activity/Vol] 18 U/L Normal 10-54 [facility] Comment on above: Order Comment: Speci men Type: BLOOD SPECIMENOrdering Facility: [facility] Address: [address] [place] [address] Performed By: #### 2 4323-8, ####[facility] [id number] [place] [address] [place] Anion gap [Moles/Vol] 11 mmol/L Normal 9-18 [facility] Comment on above: Order Comment: Speci men Type: BLOOD SPECIMENOrdering Facility: [facility] Address: [address] [place] [address] Performed By: #### 2 4323-8, ####[facility] [id number] [place] [address] [place] AST [Catalytic activity/Vol] 19 U/L Normal 14-40 [facility] Comment on above: Order Comment: Speci men Type: BLOOD SPECIMENOrdering Facility: [facility] Address: [address] [place], [place] [address] Performed By: #### 2 4323-8, 58059-2 ####[facility] [id number] [place] [address] [place] Bilirubin [Mass/Vol] 0.2 mg/dL Normal 0.2-1.3 [facility] Comment on above: Order Comment: Speci men Type: BLOOD SPECIMENOrdering Facility: [facility] Address: [address] [place] [address] Performed By: #### 2 4323-8, ####[facility] [id number] [place] [address] [place] Calcium [Mass/Vol] 9.6 mg/dL Normal 8.5-10.2 [facility] Comment on above: Order Comment: Speci men Type: BLOOD SPECIMENOrdering Facility: [facility] Address: [address] [place] [address] Performed By: #### 2 4323-8, ####[facility] [id number] [place] [address] [place] Chloride [Moles/Vol] 107 mmol/L High 97-105 [facility] Comment on above: Order Comment: Speci men Type: BLOOD SPECIMENOrdering Facility: [facility] Address: [address] [place] [address] Performed By: #### 2 4323-8, ####[facility] [id number] [place] [address] [place] CO2 [Moles/Vol] 23 mmol/L Normal 22-30 [facility] Comment on above: Order Comment: Speci men Type: BLOOD SPECIMENOrdering Facility: [facility] Address: [address] [place] [address] Performed By: #### 2 4323-8, ####[facility] [id number] [place] [address] [place] Creatinine [Mass/Vol] 0.94 mg/dL Normal 0.73-1.22 [facility] Comment on above: Order Comment: Sara randle Type: BLOOD SPECIMENOrdering Facility: [facility] Address: [address] [place] [address] Performed By: #### 2 4323-8, ####[facility] [id number] [place] [address] [place] Creatinine and Glomerular filtration rate.predicted panel (S/P/Bld) 89 mL/min/1.73m??? Normal >=60 [facility] Comment on above: Order Comment: Sara randle Type: BLOOD SPECIMENOrdering Facility: [facility] Address: [address] [place] [address] Result Comment: Carol mated Glomerular Filtration Rate [...] By: #### 2 4323-8, ####[facility] [id number] [place] [address] [place] Glucose [Mass/Vol] 100 mg/dL High 74-99 [facility] Comment on above: Order Comment: Sara randle Type: BLOOD SPECIMENOrdering Facility: [facility] Address: [address] [place] [address] Result Comment: The [place] Diabetes Association (ADA) provides guidance for cutoff [...] Standards of Medical Care in Diabetes 2016, [place] [employer]. Diabetes Care. 2016.39(Suppl 1). Performed By: #### 2 4323-8, ####[facility] [id number] [place] [address] [place] Potassium [Moles/Vol] 4.6 mmol/L Normal 3.7-5.1 [facility] Comment on above: Order Comment: Speci men Type: BLOOD SPECIMENOrdering Facility: [facility] Address: [address] [place] [address] Performed By: #### 2 4322-8, ####[facility] [id number] [place] [address] [place] Protein [Mass/Vol] 7.5 g/dL Normal 6.3-8.0 [facility] Comment on above: Order Comment: Speci men Type: BLOOD SPECIMENOrdering Facility: [facility] Address: [address] [id number] Performed By: #### 2 8, ####[facility] [id number] [place] [address] [place] Sodium [Moles/Vol] 141 mmol/L Normal 136-144 [facility] Comment on above: Order Comment: Speci men Type: BLOOD SPECIMENOrdering Facility: [facility] Address: [address] [place] [address] Performed By: #### 2 3-8, ####[facility] [id number] [place] [address] [place] Urea nitrogen [Mass/Vol] 15 mg/dL Normal 9-24 [facility] Comment on above: Order Comment: Speci men Type: BLOOD SPECIMENOrdering Facility: [facility] Address: [address] [id number] Performed By: #### 2 4323-8, 58971-0 ####[facility] [id number] [place] [address] [place] D dimer FEU PPP-mCncon 02-23 Fibrin D-dimer FEU (PPP) [Mass/Vol] 780 ng/mL FEU High <500 [facility] Comment on above: Order Comment: Speci men Type: BLOOD SPECIMENOrdering Facility: [facility] Address: [address] [place] [address] Performed By: #### 4 8065-7, 3255-7, 00706-7 ####[facility] [id number] [address] [place] D-DIMERon 02-24-2024 Fibrin D-dimer FEU (PPP) [Mass/Vol] 780 High NINF [facility] ECG COMPLETEon 02-24-2024 ECG COMPLETE Normal [facility] ESR Westergren method (Bld) [Velocity]on 02-24-2024 ESR (Bld) [Velocity] 26 mm/h High [facility] Interpretation and review of laboratory results Abnormal [facility] ESR (Bld) [Velocity] 26 mm/h High 0-15 [facility] Comment on above: Order Comment: Speci men Type: BLOOD SPECIMENOrdering Facility: [facility] Address: [address] [place] [address] Performed By: #### 4 537-7 ####[facility] [id number] [place] [address] [place] FIBRINOGENon 02-24-2024 Fibrinogen Coag (PPP) [Mass/Vol] 432 mg/dL High 200 - 400 mg/dL [facility] Fibrin D-dimer FEU (PPP) [Ma ss/Vol]on 02-24-2024 D Dimer Age-related Cutoff 670 ng/mL FEU [facility] 500 ng/mL FEU is the D Dimer [...] al. SANIA 2014 311:1117 and Wenceslao Toledo N et al. Donna Int Med 2016 165:253. [facility] D DIMER AGE-RELATED CUTOFF 670 ng/mL FEU Normal [facility] Comment on above: Order Comment: Specjos randle Type: BLOOD SPECIMENOrdering Facility: [facility] Address: [address] [place] [address] Performed By: #### 4 8065-7, 3255-7, 75131-1 ####[facility] [id number] [place] [address] [place] Fibrinogen PPP-mCncon 2023 Fibrinogen Coag (PPP) [Mass/Vol] 432 mg/dL High 200-400 [facility] Comment on above: Order Comment: Sara randle Type: BLOOD SPECIMENOrdering Facility: [facility] Address: [address] [place] [address] Performed By: #### 4 8065-7, 3255-7, 54678-3 ####[facility] [id number] [place] [address] [place] HBV surface Ab Ql (S)Ordered By: Neli Champagne on 02-24-2024 HBV surface Ab Qn (S) mIU/mL [facility] Comment on above: <8 mIU/mL: No serolo gical evidence of immunity to Hepatitis B Virus. >/= 8 to <12 mIU/mL: No serological evidence of immunity to Hepatitis B Virus. >/= 12 mIU/mL: Consistent with serological evidence of immunity to Hepatitis B Virus. [facility] HBV surface Ab Ql (S)on 02-02 HBV surface Ab Qn (S) <8.00 Normal [facility] Comment on above: Order Comment: Speci men Type: BLOOD SPECIMENOrdering Facility: [facility] Address: [address] [place] [address] Result Comment: <8 m IU/mL: No serological evidence of immunity to Hepatitis B Virus.>/= 8 to <12 mIU/mL: No serological evidence of immunity to Hepatitis B Virus.>/= 12 mIU/mL: Consistent with serological evidence of immunity to Hepatitis B Virus. Performed By: #### 2 2322-2 ####[facility] [id number] [place] [address] [place] HBV surface Ab Ser Qlon 02-02 HBV surface Ab Ql (S) Negative Normal [facility] Comment on above: Order Comment: Speci men Type: BLOOD SPECIMENOrdering Facility: [facility] Address: [address] [place] [address] Result Comment: No s erological evidence of immunity to Hepatitis B Virus. Performed By: #### 2 2322-2 ####[facility] [id number] [place] [address] [place] HEPATITIS B SURFACE ANTIBODY Ordered By: Neli Champagne on 02-24-2024 HBV surface Ab Ql (S) Negative [facility] Comment on above: No serological evide nce of immunity to Hepatitis B Virus. IDM PANEL ADULTon 02-24-2024 ANTI-HBC Negative Normal Negative/N on-reactiv e [facility] Comment on above: Order Comment: Speci men Type: BLOOD SPECIMENOrdering Facility: [facility] Address: [address] [place] [address] Performed By: #### I DMAD ####[facility] LABCLIA [id number] [place] [address] [place] ANTI-HCV Negative Normal Negative/N on-reactiv e [facility] Comment on above: Order Comment: Speci men Type: BLOOD SPECIMENOrdering Facility: [facility] Address: [address] [place] [address] Performed By: #### I DMAD ####[facility] LABCLIA [id number] [place] [address] [place] ANTI-HTLV I/II Negative Normal Negative/N on-reactiv e [facility] Comment on above: Order Comment: Speci men Type: BLOOD SPECIMENOrdering Facility: [facility] Address: [address] [place] [address] Performed By: #### I DMAD ####[facility] LABCL[facility] [id number] [place] [address] [place] CHAGAS Negative Normal Negative/N on-reactiv e [facility] Comment on above: Order Comment: Speci men Type: BLOOD SPECIMENOrdering Facility: [facility] Address: [address] [place] [address] Performed By: #### I DMAD ####[facility]CL[facility] [id number] [place] [address] [place] CMV Negative Normal Negative/N on-reactiv e [facility] Comment on above: Order Comment: Speci men Type: BLOOD SPECIMENOrdering Facility: [facility] Address: [address] [place] [address] Performed By: #### I DMAD ####[facility] LABCLIA [id number] [place] [address] [place] EXPIRATION OF IDM 03/25/2024 Normal [facility] Comment on above: Order Comment: Speci men Type: BLOOD SPECIMENOrdering Facility: [facility] Address: [address] [place] [address] Performed By: #### I DMAD ####[facility] LABCLIA [id number] [place] [address] [place] HBSAG Negative Normal Negative/N on-reactiv e [facility] Comment on above: Order Comment: Speci men Type: BLOOD SPECIMENOrdering Facility: [facility] Address: [address] [place] [address] Performed By: #### I DMAD ####[facility]CL[facility] [id number] [place] [address] [place] HBVNAT Negative Normal Negative/N on-reactiv e [facility] Comment on above: Order Comment: Speci men Type: BLOOD SPECIMENOrdering Facility: [facility] Address: [address] [place] [address] Performed By: #### I DMAD ####[facility]CL[facility] [id number] [place] [address] [place] HCVNAT Negative Normal Negative/N on-reactiv e [facility] Comment on above: Order Comment: Speci men Type: BLOOD SPECIMENOrdering Facility: [facility] Address: [address] [place] [address] Performed By: #### I DMAD ####[facility]CL[facility] [id number] [place] [address] [place] HIV 1+2 Ab Ql (S donor) Negative Normal Negative/N on-reactiv e [facility] Comment on above: Order Comment: Speci men Type: BLOOD SPECIMENOrdering Facility: [facility] Address: [address] [place], [place] [address] Performed By: #### I DMAD ####[facility]CL[facility] [id number] [place] [address] [place] HIVNAT Negative Normal Negative/N on-reactiv e [facility] Comment on above: Order Comment: Speci men Type: BLOOD SPECIMENOrdering Facility: [facility] Address: [address] [place] [address] Performed By: #### I DMAD ####[facility] LABCLIA [id number] [place] [address] [place] STS Negative Normal Negative/N on-reactiv e [facility] Comment on above: Order Comment: Speci men Type: BLOOD SPECIMENOrdering Facility: [facility] Address: [address] [place] [address] Performed By: #### I DMAD ####[facility]CL[facility] [id number] [place] [address] [place] WNVNAT Negative Normal Negative/N on-reactiv e [facility] Comment on above: Order Comment: Speci men Type: BLOOD SPECIMENOrdering Facility: [facility] Address: [address] [place] [address] Performed By: #### I DMAD ####[facility]CL[facility] [id number] [place] [address] [place] IMMUNOGLOBULINS,IGG,IGA,IGMo n 02-24-2024 IgA [Mass/Vol] 175 mg/dL 70 - 400 mg/dL [facility] IgG [Mass/Vol] 1258 mg/dL 700 - 1600 mg/dL [facility] IgM [Mass/Vol] 15 mg/dL Low 40 - 230 mg/dL [facility] Interpretation and review of laboratory results Abnormal [facility] IgA [Mass/Vol] 175 mg/dL Normal 70-400 [facility] Comment on above: Order Comment: Speci men Type: BLOOD SPECIMENOrdering Facility: [facility] Address: [address] [place] [address] Performed By: #### S ERIMM ####[facility]CL[facility] [id number] [place] [address] [place] IgG [Mass/Vol] 1258 mg/dL Normal 700-1600 [facility] Comment on above: Order Comment: Speci men Type: BLOOD SPECIMENOrdering Facility: [facility] Address: [address] [place] [address] Performed By: #### S ERIMM ####[facility] [id number] [place] [address] [place] IgM [Mass/Vol] 15 mg/dL Low 40-230 [facility] Comment on above: Order Comment: Speci men Type: BLOOD SPECIMENOrdering Facility: [facility] Address: [address] [place] [address] Performed By: #### S ERIMM ####[facility]CL[facility] [id number] [place] [address] [place] LACTATE DEHYDROGENASEon 02-02 LDH [Catalytic activity/Vol] 205 U/L 135 - 225 U/L [facility] LDH SerPl-cCncon 02-24-2024 LDH [Catalytic activity/Vol] 205 U/L Normal 135-225 [facility] Comment on above: Order Comment: Speci men Type: BLOOD SPECIMENOrdering Facility: [facility] Address: [address] [place] [address] Performed By: #### 2 532-0 ####[facility] [id number] [place] [address] [place] LDH [Catalytic activity/Vol] on 02-24-2024 Interpretation and review of laboratory results Normal [facility] MAGNESIUMon 02-24-2024 Magnesium [Mass/Vol] 2.2 mg/dL 1.7 - 2 .3 mg/dL [facility] Magnesium SerPl-mCncon 02-23 Magnesium [Mass/Vol] 2.2 mg/dL Normal 1.7-2.3 [facility] Comment on above: Order Comment: Speci men Type: BLOOD SPECIMENOrdering Facility: [facility] Address: [address] [place] [address] Performed By: #### 2 4323-8, 34267-1 ####[facility] [id number] [place] [address] [place] Magnesium [Mass/Vol]on 02-23 Interpretation and review of laboratory results Normal [facility] No Panel Informationon 02-23 [facility] Interpretation and review of laboratory results Abnormal [facility] PT panel Coag (PPP)on 2023 INR Coag (PPP) [Relative time] 1.1 {INR} 0.9 - 1.3 [facility] Comment on above: Vitamin K Antagonist (VKA) Therapeutic Range: INR 2 to 3 (Target INR of 2.5) Note: For patients treated with VKA drugs, such as warfarin, the [place] [employer] 2012 Guideline recommends [...] GH, et al. Chest 2012, 141:7S-47S Chelsie RA, et al. [facility] 2017, 70: 252-289 Interpretation and review of laboratory results Normal [facility] PT Coag (PPP) [Time] 11.3 s [facility] INR Coag (PPP) [Relative time] 1.1 {INR} Normal 0.9-1.3 [facility] Comment on above: Order Comment: Speci men Type: BLOOD SPECIMENOrdering Facility: [facility] Address: [address] [place] [address] Result Comment: Anca min K Antagonist (VKA) Therapeutic Range: INR 2 to 3 (Target INR of 2.5)Note: For patients treated with VKA drugs, such as warfarin, the [place] [employer] 2012 Guideline recommends [...] of 3).Mike RODRIGUEZ, et al. Chest 2012, 141:7S-47SNishthania RA, et al. [facility] 2017, 70: 252-289 Performed By: #### 3 4528-0 ####[facility] LABCLIA [id number] [place] [address] [place] PT Coag (PPP) [Time] 11.3 s Normal 9.7-13.0 [facility] Comment on above: Order Comment: Speci men Type: BLOOD SPECIMENOrdering Facility: [facility] Address: [address] [place] [address] Performed By: #### 3 4528-0 ####[facility] [id number] [place] [address] [place] TYPE + SCREENon 02-24-2024 ABO group Nom (Bld) B [facility] Blood group antibody screen Ql Negative [facility] HIstorical Ab Scr Status Negative [facility] Rh Nom (Bld) Negative [facility] Type and Screen Expiration 02/27/2024 23:59 [facility] ABO B Normal [facility] Comment on above: Order Comment: Speci men Type: BLOOD SPECIMENOrdering Facility: [facility] Address: [address] [place] [address] Performed By: #### T SCR ####[facility] BLOOD BANKCLIA [id number] [address] [place] HISTORICAL AB SCR STATUS Negative Normal [facility] Comment on above: Order Comment: Speci men Type: BLOOD SPECIMENOrdering Facility: [facility] Address: [address] [place] [address] Performed By: #### T SCR ####CC [facility] BLOOD BANKIA [id number] [address] OF [place] Rh Nom (Bld) Negative Normal [facility] Comment on above: Order Comment: Speci men Type: BLOOD SPECIMENOrdering Facility: [facility] Address: [address] [place] [address] Performed By: #### T SCR ####CC [facility] BLOOD BANKCLIA [id number] [address] OF [facility] TYPE AND SCREEN EXPIRATION 02/27/2024 23:59 Normal [facility] Comment on above: Order Comment: Speci men Type: BLOOD SPECIMENOrdering Facility: [facility] Address: [address] [place] [address] Performed By: #### T SCR ####CC [facility] BLOOD BANKCLIA [id number] [address] OF [place] aPTT Coag (PPP) [Time]on Interpretation and review of laboratory results Normal [facility] Unfractionated Hepar in Therapeutic Ranges: Standard Heparin [...] laboratory APTT reagent in use throughout the [facility]. [facility] aPTT PPPon 02-24-2024 aPTT Coag (PPP) [Time] 24.0 s Normal 23.0-32.4 [facility] Comment on above: Order Comment: Speci men Type: BLOOD SPECIMENOrdering Facility: [facility] Address: [address] [place] [address] Performed By: #### 4 8065-7, 3255-7, 16710-9 ####[facility] LABCLIA [id number] [place] [address] [place] CNPNon 02-18-2024 CNPN Normal [facility] CNOVSPon 02-12-2024 CNOVSP Normal [facility] CNOVSPon 02-02-2024 CNOVSP Normal [facility] CNPTOUTREACHon 02-02-2024 CNPTOUTREACH Normal [facility] PET+CT Guidance for localiza tion of tumor of Skull base to mid-thigh-- W 18F-FDG IVOrdered By: Ccf Provider on 02-02-2024 Interpretation and review of laboratory results Abnormal [facility] Radiology Result ACTIONABLE Abnormal [facility] Comment on above: This report contains [...] contact your provider for the next steps. [facility] PET+CT Guidance for localiza tion of tumor [...] be communicated with the ordering provider via [employer] staff message or phone message by Imaging [...] any questions regarding this interpretation, please call [phone]. If you are unable to reach us at the number above, please feel free to [facility] [phone]. DIVISION OF RADIOLOGY * * *Final Report* [...] * Radiopharmaceutical Dose: 9.9 mCi * Radiopharmaceutical: T42-Rmovghyfzfktyvrbpi (FDG) COMPARISON: FDG PET/CT 11/18/2023 CORRELATION: No relevant imaging available RESULT: REFERENCES: SUV reference values: * Blood pool (descending aorta) activity: SUVmax 3.1 * Background liver activity: SUVmax 4.1; SUVmean 2.9 Remote Sensing Scientist (topogram) images: No additional findings. Notes and [...] No abnormal uptake. DIVISION OF RADIOLOGY Provider, [facility] - 02/02/2024 * * *Final Report* * [...] * Radiopharmaceutical Dose: 9.9 mCi * Radiopharmaceutical: J49-Fmycvrobnvtjpfnmjf (FDG) COMPARISON: FDG PET/CT 11/18/2023 CORRELATION: No relevant imaging available RESULT: REFERENCES: SUV reference values: * Blood pool (descending aorta) activity: SUVmax 3.1 * Background liver activity: SUVmax 4.1; SUVmean 2.9 Remote Sensing Scientist (topogram) images: No additional findings. Notes and [...] nodes, compatible with (more content not included)... [facility] GLUCOSE, BLOOD (POC)on 01-29 Glucose [Mass/Vol] 91 mg/dL 74 - 99 mg/dL [facility] Comment on above: Location:[facility], [address] [place] [address] , [place], [place], [facility] The Accu-Chek Inform II glucose meter has [...] blood gas instrument) in the above situations. [facility] NM PET/CT SKULL-THIGH SUBQon 01-30-2024 NM PET/CT SKULL-THIGH SUBQ Invalid Interpretation Code [facility] PET+CT Guidance for localiza tion of tumor of Skull base to mid-thigh-- W 18F-FDG Bella 01-30-2024 Radiology Study observation (narrative) [facility] CNPNon 01-29-2024 CNPN Normal [facility] Pathology Noteon 01-29-2024 Pathology Note [id number] Normal [facility] COMPREHENSIVE METABOLIC PANE Cheng 01-28-2024 Albumin [Mass/Vol] 4.2 g/dL Normal 3.5-5.0 [facility] Comment on above: Order Comment: [place] Performed By: #### C MPN, LDO, URICB #### [facility] (DEFAULT) [address] [place] [address] ALP [Catalytic activity/Vol] 165 U/L High 32-126 [facility] Comment on above: Order Comment: [place] Performed By: #### C MPN, LDO, URICB #### [facility] (DEFAULT) [address] [place] [address] 71088 ALT [Catalytic activity/Vol] 24 U/L Normal 10-52 [facility] Comment on above: Order Comment: [place] Performed By: #### C MPN, LDO, URICB #### [facility] (DEFAULT) [address] [place] [address] 33980 Anion gap [Moles/Vol] 13 mmol/L Normal 7-17 [facility] Comment on above: Order Comment: [place] Performed By: #### C MPN, LDO, URICB #### [facility] (DEFAULT) [address] [place] [address] 91569 AST [Catalytic activity/Vol] 22 U/L Normal 10-39 [facility] Comment on above: Order Comment: [place] Performed By: #### C MPN, LDO, URICB #### [facility] (DEFAULT) [address] [place] [address] 70698 Bilirubin [Mass/Vol] 0.4 mg/dL Normal <1.5 [facility] Comment on above: Order Comment: [place] Performed By: #### C MPN, LDO, URICB #### [facility] (DEFAULT) [address] [place] [address] 09832 Calcium [Mass/Vol] 9.6 mg/dL Normal 8.6-10.5 [facility] Comment on above: Order Comment: [place] Performed By: #### C MPN, LDO, URICB #### U [facility] (DEFAULT) [address] [place] [address] 62090 Chloride [Moles/Vol] 107 mmol/L Normal 98-108 [facility] Comment on above: Order Comment: [place] Performed By: #### C MPN, LDO, URICB #### U [facility] (DEFAULT) [address] [place] [address] 42724 CO2 [Moles/Vol] 23 mmol/L Normal 21-31 [facility] Comment on above: Order Comment: [place] Performed By: #### C MPN, LDO, URICB #### [facility] (DEFAULT) [address] [place] [address] 42417 Creatinine [Mass/Vol] 1.08 mg/dL Normal 0.70-1.30 [facility] Comment on above: Order Comment: [place] Performed By: #### C MPN, LDO, URICB #### [facility] (DEFAULT) [address] [place] [address]321 GFR/1.73 sq M.predicted among non-blacks MDRD (S/P/Bld) [Vol rate/Area] 75 mL/min/{1.73_m2} Normal >=60 [facility] Comment on above: Order Comment: [place] Result Comment: Repo rted eGFR is based on the CKD-EPI 2020 equation using creatinine, age, and sex. Performed By: #### C MPN, LDO, URICB #### U [facility] (DEFAULT) [address] [place] [address] 47868 Glucose [Mass/Vol] 135 mg/dL High 70-99 [facility] Comment on above: Order Comment: [place] Performed By: #### C MPN, LDO, URICB #### [facility] (DEFAULT) [address] [place] [address] 55628 Osmolality [Osmolality] 294 mosm/kg Normal 278-305 [facility] Comment on above: Order Comment: [place] Performed By: #### C MPN, LDO, URICB #### [facility] (DEFAULT) [address] [place] [address] 82570 Potassium [Moles/Vol] 3.9 mmol/L Normal 3.5-5.0 [facility] Comment on above: Order Comment: [place] Performed By: #### C MPN, LDO, URICB #### [facility] (DEFAULT) [address] [place] [address] 06415 Protein [Mass/Vol] 7.1 g/dL Normal 6.4-8.3 [facility] Comment on above: Order Comment: [place] Performed By: #### C MPN, LDO, URICB #### [facility] (DEFAULT) [address] [place] [address] 83437 Sodium [Moles/Vol] 139 mmol/L Normal 135-145 [facility] Comment on above: Order Comment: [place] Performed By: #### C MPN, LDO, URICB #### [facility] (DEFAULT) [address] [place] [address] 56577 Urea nitrogen [Mass/Vol] 15 mg/dL Normal 7-25 [facility] Comment on above: Order Comment: [place] Performed By: #### C MPN, LDO, URICB #### U [facility] (DEFAULT) [address] [place] [address] 93696 Urea nitrogen/Creatinine [Mass ratio] 14 mg/mg Normal [facility] Comment on above: Order Comment: [place] Performed By: #### C MPN, LDO, URICB #### [facility] (DEFAULT) [address] [place] [address] 82046 Albumin [Mass/Vol] 4.2 g/dL 3.5 - 5.0 g/dL [facility] ALP [Catalytic activity/Vol] 165 U/L High 32 - 126 U/L [facility] ALT [Catalytic activity/Vol] 24 U/L 10 - 52 U/L [facility] Anion gap [Moles/Vol] 13 mmol/L 7 - 17 mmol/L [facility] AST [Catalytic activity/Vol] 22 U/L 10 - 39 U/L [facility] Bilirubin [Mass/Vol] 0.4 mg/dL NINF - 1.5 mg/dL [facility] Calcium [Mass/Vol] 9.6 mg/dL 8.6 - 10. 5 mg/dL [facility] Chloride [Moles/Vol] 107 mmol/L 98 - 10 8 mmol/L [facility] CO2 [Moles/Vol] 23 mmol/L 21 - 31 mmol/L [facility] Creatinine [Mass/Vol] 1.08 mg/dL 0.70 - 1.30 mg/dL [facility] eGFR, CKD-EPI, Male 75 - PINF [facility] Comment on above: Reported eGFR is bas ed on the CKD-EPI 2020 equation using creatinine, age, and sex. Glucose [Mass/Vol] 135 mg/dL High 70 - 99 mg/dL [facility] Osmolality Calc [Osmolality] 294 [facility] Potassium [Moles/Vol] 3.9 mmol/L 3.5 - 5.0 mmol/L [facility] Protein [Mass/Vol] 7.1 g/dL 6.4 - 8.3 g/dL [facility] Sodium [Moles/Vol] 139 mmol/L 135 - 145 mmol/L [facility] Urea nitrogen [Mass/Vol] 15 mg/dL 7 - 25 mg/dL [facility] Urea nitrogen/Creatinine [Mass ratio] 14 mg/mg [facility] Chronic hepatitis differenti ation between hepatitis B and C virus panelOrdered By: Nia Mixon on 01-28-2024 HBV core IgG+IgM Ql (S) Negative Negative [facility] HBV surface Ab IA Ql (S) Negative Negative [facility] HBV surface Ag Ql (S) Negative Negative [facility] HCV Ab Ql (S) Negative Negative [facility] Interpretation and review of laboratory results Normal [facility] HEPATITIS BATTERY, CHRONICon 01-28-2024 Hep B Core Ab,Total (IgG+IgM) Negative Normal Negative [facility] Comment on above: Order Comment: [place] Performed By: #### H EP3B #### [facility] (DEFAULT) [address] [address] Hep B Surface Ab Negative Normal Negative [facility] Comment on above: Order Comment: [place] Performed By: #### H EP3B #### [facility] (DEFAULT) [address] [place] [address] Hepatitis B Surface Ag Negative Normal Negative [facility] Comment on above: Order Comment: [place] Performed By: #### H EP3B #### [facility] (DEFAULT) [address] [place] [address] Hepatitis C Antibody Negative Normal Negative [facility] Comment on above: Order Comment: [place] Performed By: #### H EP3B #### [facility] (DEFAULT) [address] [place] [address] HIV 1 AND 2 ANTIBODIES/P24 A NTIGENon 01-28-2024 HIV 1+2 Ab+HIV1 p24 Ag IA Ql Non-Reactive Non Reactive [facility] Interpretation and review of laboratory results Normal [facility] HIV-1/HIV-2 Ab With p24 Antigen Non-Reactive Normal Non Reactive [facility] Comment on above: Order Comment: [place] Performed By: #### L [id number] #### [facility] (DEFAULT) [address] [address] LACTATE DEHYDROGENASEon 01-02 LD Total 177 U/L Normal 100-190 [facility] Comment on above: Order Comment: [place] Performed By: #### C MPN, LDO, URICB #### U [facility] (DEFAULT) [address] [place] [address] Interpretation and review of laboratory results Normal [facility] LDH Lactate to pyruvate reaction [Catalytic activity/Vol] 177 U/L 100 - 190 U/L [facility] No Panel Informationon 01-27 Interpretation and review of laboratory results Abnormal [facility] URIC ACIDon 01-28-2024 Urate [Mass/Vol] 7.4 mg/dL High 3.5-7.0 [facility] Comment on above: Order Comment: [place] Performed By: #### C MPN, LDO, URICB #### [facility] (DEFAULT) [address] [place] [address]29 Urate [Mass/Vol] 7.4 mg/dL High 3.5 - 7.0 mg/dL [facility] CNPNon 01-27-2024 CNPN Normal [facility] CNCOon 01-22-2024 CNCO Letter Text Normal [facility] CNCOon 01-21-2024 CNCO Letter Text Normal [facility] CNPNon 01-20-2024 CNPN Normal [facility] CNPNon 01-14-2024 CNPN Normal [facility] Pathology Noteon 01-13-2024 Pathology Note [id number] Normal [facility] Pathology Note [id number]#1.00TIFF Normal [facility] Pathology Note [id number]#1.00TIFF Normal [facility] CNOVSPon 01-12-2024 CNOVSP Normal [facility] CNOVSPon 01-05-2024 CNOVSP Normal [facility] Pathology Noteon 12-31-2023 Pathology Note [id number]#[id number] Normal [facility] CNOVon 12-30-2023 CNOV Normal [facility] CNPNon 12-29-2023 CNPN Normal [facility] B2 Microglob SerPl-mCncon Bgrr-9-Ijvoudxwdlvtk [Mass/Vol] 2.4 ug/mL Normal <3.1 [facility] Comment on above: Order Comment: Speci men Type: BLOOD SPECIMENOrdering Facility: [facility] Address: [address] [place] [address] Result Comment: Beta -2 Microglobulin test is performed using the [employer] immunoturbidimetric method. Results obtained with different methods or kits cannot be used interchangeably. Performed By: #### 1 952-1 ####[facility] LABCLIA [id number] [place] [address] [place] CBC W Auto Differential pane l (Bld)on 12-25-2023 Basophils (Bld) [#/Vol] 0.05 10*3/uL <0.11 k/uL [facility] Basophils/100 WBC (Bld) 0.9 % [facility] Differential cell count method Nom (Bld) Auto [facility] Eosinophils (Bld) [#/Vol] 0.18 10*3/uL <0.46 k/uL [facility] Eosinophils/100 WBC (Bld) 3.2 % [facility] Erythrocyte distribution width (RBC) [Ratio] 13.3 % 11.5 - 15.0 % [facility] Hematocrit (Bld) [Volume fraction] 40.3 % 39.0 - 51.0 % [facility] Hemoglobin (Bld) [Mass/Vol] 14.1 g/dL 13.0 - 17.0 g/dL [facility] Immature granulocytes (Bld) [#/Vol] 0.03 10*3/uL <0.10 k/uL [facility] Immature granulocytes/100 WBC (Bld) 0.5 % [facility] Lymphocytes (Bld) [#/Vol] 0.61 10*3/uL Low 1.00 - 4.00 k/uL [facility] Lymphocytes/100 WBC (Bld) 10.9 % [facility] MCH (RBC) [Entitic mass] 31.8 pg 26.0 - 34.0 pg [facility] MCHC (RBC) [Mass/Vol] 35.0 g/dL 30.5 - 36.0 g/dL [facility] MCV (RBC) [Entitic vol] 91.0 fL 80.0 - 100.0 fL [facility] Monocytes (Bld) [#/Vol] 1.06 10*3/uL High <0.87 k/uL [facility] Monocytes/100 WBC (Bld) 19.0 % [facility] Neutrophils (Bld) [#/Vol] 3.66 10*3/uL 1.45 - 7.50 k/uL [facility] Neutrophils/100 WBC (Bld) 65.5 % [facility] Nucleated RBC (Bld) [#/Vol] <0.01 k/uL [facility] Nucleated RBC/100 WBC (Bld) [Ratio] 0.0 /100 WBC [facility] Platelet mean volume (Bld) [Entitic vol] 9.5 fL 9.0 - 12.7 fL [facility] Platelets (Bld) [#/Vol] 216 10*3/uL 150 - 400 k/uL [facility] RBC (Bld) [#/Vol] 4.43 10*6/uL 4.20 - 6.00 m/uL [facility] WBC (Bld) [#/Vol] 5.59 10*3/uL 3.70 - 11.00 k/uL [facility] Basophils (Bld) [#/Vol] 0.05 10*3/uL Normal <0.11 [facility] Comment on above: Order Comment: Speci men Type: BLOOD SPECIMENOrdering Facility: [facility] Address: [address] [place] [address] Performed By: #### 5 7021-8 ####[facility] LABCLIA [id number] [place] [address] Basophils/100 WBC (Bld) 0.9 % Normal [facility] Comment on above: Order Comment: Speci men Type: BLOOD SPECIMENOrdering Facility: [facility] Address: [address] [place] [address] Performed By: #### 5 7021-8 ####[facility] LABCLIA [id number] [place] [address] Differential cell count method Nom (Bld) Auto Normal [facility] Comment on above: Order Comment: Speci men Type: BLOOD SPECIMENOrdering Facility: [facility] Address: [address] [place] [address] Performed By: #### 5 7021-8 ####[facility] LABCLIA [id number] [place] [address] Eosinophils (Bld) [#/Vol] 0.18 10*3/uL Normal <0.46 [facility] Comment on above: Order Comment: Speci men Type: BLOOD SPECIMENOrdering Facility: [facility] Address: [address] [place] [address] Performed By: #### 5 7021-8 ####[facility] LABCLIA [id number] [place] [address] Eosinophils/100 WBC (Bld) 3.2 % Normal [facility] Comment on above: Order Comment: Speci men Type: BLOOD SPECIMENOrdering Facility: [facility] Address: [address] [place] [address] Performed By: #### 5 7021-8 ####[facility] LABCLIA [id number] [place] [address] Erythrocyte distribution width (RBC) [Ratio] 13.3 % Normal 11.5-15.0 [facility] Comment on above: Order Comment: Speci men Type: BLOOD SPECIMENOrdering Facility: [facility] Address: [address] [place] [address] Performed By: #### 5 7021-8 ####[facility] LABCLIA [id number] [place] [address] Hematocrit (Bld) [Volume fraction] 40.3 % Normal 39.0-51.0 [facility] Comment on above: Order Comment: Speci men Type: BLOOD SPECIMENOrdering Facility: [facility] Address: [address] [place] [address] Performed By: #### 5 7021-8 ####[facility] LABCLIA [id number] [place] [address] Hemoglobin (Bld) [Mass/Vol] 14.1 g/dL Normal 13.0-17.0 [facility] Comment on above: Order Comment: Speci men Type: BLOOD SPECIMENOrdering Facility: [facility] Address: [address] [place] [address] Performed By: #### 5 7021-8 ####[facility] LABCLIA [id number] [place] [address] Immature granulocytes (Bld) [#/Vol] 0.03 10*3/uL Normal <0.10 [facility] Comment on above: Order Comment: Speci men Type: BLOOD SPECIMENOrdering Facility: [facility] Address: [address] [place] [address] Performed By: #### 5 7021-8 ####[facility] LABCLIA [id number] [place] [address] Immature granulocytes/100 WBC (Bld) 0.5 % Normal [facility] Comment on above: Order Comment: Speci men Type: BLOOD SPECIMENOrdering Facility: [facility] Address: [address] [place] [address] Performed By: #### 5 7021-8 ####[facility] LABCLIA [id number] [place] [address] Lymphocytes (Bld) [#/Vol] 0.61 10*3/uL Low 1.00-4.00 [facility] Comment on above: Order Comment: Speci men Type: BLOOD SPECIMENOrdering Facility: [facility] Address: [address] [place] [address] Performed By: #### 5 7021-8 ####[facility] LABCLIA [id number] [place] [address] Lymphocytes/100 WBC (Bld) 10.9 % Normal [facility] Comment on above: Order Comment: Speci men Type: BLOOD SPECIMENOrdering Facility: [facility] Address: [address] [place] [address] Performed By: #### 5 7021-8 ####[facility] LABCLIA [id number] [place] [address] MCH (RBC) [Entitic mass] 31.8 pg Normal 26.0-34.0 [facility] Comment on above: Order Comment: Speci men Type: BLOOD SPECIMENOrdering Facility: [facility] Address: [address] [place] [address] Performed By: #### 5 7021-8 ####[facility] LABCLIA [id number] [place] [address] MCHC (RBC) [Mass/Vol] 35.0 g/dL Normal 30.5-36.0 [facility] Comment on above: Order Comment: Speci men Type: BLOOD SPECIMENOrdering Facility: [facility] Address: [address] [place] [address] Performed By: #### 5 7021-8 ####[facility] LABCLIA [id number] [place] [address] MCV (RBC) [Entitic vol] 91.0 fL Normal 80.0-100.0 [facility] Comment on above: Order Comment: Speci men Type: BLOOD SPECIMENOrdering Facility: [facility] Address: [address] [place] [address] Performed By: #### 5 7021-8 ####[facility] LABCLIA [id number] [place] [address] Monocytes (Bld) [#/Vol] 1.06 10*3/uL High <0.87 [facility] Comment on above: Order Comment: Speci men Type: BLOOD SPECIMENOrdering Facility: [facility] Address: [address] [place] [address] Performed By: #### 5 7021-8 ####[facility] LABCLIA [id number] [place] [address] Monocytes/100 WBC (Bld) 19.0 % Normal [facility] Comment on above: Order Comment: Speci men Type: BLOOD SPECIMENOrdering Facility: [facility] Address: [address] [place] [address] Performed By: #### 5 7021-8 ####[facility] LABCLIA [id number] [place] [address] Neutrophils (Bld) [#/Vol] 3.66 10*3/uL Normal 1.45-7.50 [facility] Comment on above: Order Comment: Speci men Type: BLOOD SPECIMENOrdering Facility: [facility] Address: [address] [place] [address] Performed By: #### 5 7021-8 ####[facility] LABCLIA [id number] [place] [address] Neutrophils/100 WBC (Bld) 65.5 % Normal [facility] Comment on above: Order Comment: Speci men Type: BLOOD SPECIMENOrdering Facility: [facility] Address: [address] [place] [address] Performed By: #### 5 7021-8 ####[facility] LABCLIA [id number] [place] [address] Nucleated RBC (Bld) [#/Vol] 10*3/uL Normal <0.01 [facility] Comment on above: Order Comment: Speci men Type: BLOOD SPECIMENOrdering Facility: [facility] Address: [address] [place] [address] Performed By: #### 5 7021-8 ####[facility] LABIA [id number] [place] [address] Nucleated RBC/100 WBC (Bld) [Ratio] 0.0 /100 WBC Normal [facility] Comment on above: Order Comment: Speci men Type: BLOOD SPECIMENOrdering Facility: [facility] Address: [address] [place] [address] Performed By: #### 5 7021-8 ####[facility] LABCLIA [id number] [place] [address] Platelet mean volume (Bld) [Entitic vol] 9.5 fL Normal 9.0-12.7 [facility] Comment on above: Order Comment: Speci men Type: BLOOD SPECIMENOrdering Facility: [facility] Address: [address] [place] [address] Performed By: #### 5 7021-8 ####[facility] LABCLIA [id number] [place] [address] Platelets (Bld) [#/Vol] 216 10*3/uL Normal 150-400 [facility] Comment on above: Order Comment: Speci men Type: BLOOD SPECIMENOrdering Facility: [facility] Address: [address] [place] [address] Performed By: #### 5 7021-8 ####[facility] LABCLIA [id number] [place] [address] RBC (Bld) [#/Vol] 4.43 10*6/uL Normal 4.20-6.00 [facility] Comment on above: Order Comment: Speci men Type: BLOOD SPECIMENOrdering Facility: [facility] Address: [address] [place] [address] Performed By: #### 5 7021-8 ####[facility] LABCLIA [id number] [place] [address] WBC (Bld) [#/Vol] 5.59 10*3/uL Normal 3.70-11.00 [facility] Comment on above: Order Comment: Speci men Type: BLOOD SPECIMENOrdering Facility: [facility] Address: [address] [place] [address] Performed By: #### 5 7021-8 ####[facility] LABCLIA [id number] [place] [address] CNOVSPon 12-25-2023 CNOVSP Normal [facility] metabolic 2000 panelon 12-25-2023 Albumin [Mass/Vol] 4.4 g/dL 3.9 - 4.9 g/dL [facility] ALP [Catalytic activity/Vol] 204 U/L High 38 - 113 U/L [facility] ALT [Catalytic activity/Vol] 30 U/L 10 - 54 U/L [facility] Anion gap [Moles/Vol] 10 mmol/L 9 - 18 mmol/L [facility] AST [Catalytic activity/Vol] 22 U/L 14 - 40 U/L [facility] Bilirubin [Mass/Vol] 0.3 mg/dL 0.2 - 1 .3 mg/dL [facility] Calcium [Mass/Vol] 10.2 mg/dL 8.5 - 10. 2 mg/dL [facility] Chloride [Moles/Vol] 101 mmol/L 97 - 10 5 mmol/L [facility] CO2 [Moles/Vol] 25 mmol/L 22 - 30 mmol/L [facility] Creatinine [Mass/Vol] 1.10 mg/dL 0.73 - 1.22 mg/dL [facility] Estimated Glomerular Filtration Rate 74 mL/min/1.73m >=60 mL/min/1.7 3m [facility] Glucose [Mass/Vol] 96 mg/dL 74 - 99 mg/dL [facility] Potassium [Moles/Vol] 4.1 mmol/L 3.7 - 5.1 mmol/L [facility] Protein [Mass/Vol] 7.6 g/dL 6.3 - 8.0 g/dL [facility] Sodium [Moles/Vol] 136 mmol/L 136 - 144 mmol/L [facility] Urea nitrogen [Mass/Vol] 16 mg/dL 9 - 24 mg/dL [facility] Albumin [Mass/Vol] 4.4 g/dL Normal 3.9-4.9 [facility] Comment on above: Order Comment: Speci men Type: BLOOD SPECIMENOrdering Facility: [facility] Address: [address] [place] [address] Performed By: #### 2 532-0, 37309-2 ####[facility] LABCLIA [id number] [place] [address] ALP [Catalytic activity/Vol] 204 U/L High 38-113 [facility] Comment on above: Order Comment: Speci men Type: BLOOD SPECIMENOrdering Facility: [facility] Address: [address] [place] [address] Performed By: #### 2 532-0, ####[facility] LABCLIA [id number] [place] [address] ALT [Catalytic activity/Vol] 30 U/L Normal 10-54 [facility] Comment on above: Order Comment: Speci men Type: BLOOD SPECIMENOrdering Facility: [facility] Address: [address] [place] [address] Performed By: #### 2 532-0, ####[facility] LABCLIA [id number] [place] [address] Anion gap [Moles/Vol] 10 mmol/L Normal 9-18 [facility] Comment on above: Order Comment: Speci men Type: BLOOD SPECIMENOrdering Facility: [facility] Address: [address] [place] [address] Performed By: #### 2 532-0, ####[facility] LABCLIA [id number] [place] [address] AST [Catalytic activity/Vol] 22 U/L Normal 14-40 [facility] Comment on above: Order Comment: Speci men Type: BLOOD SPECIMENOrdering Facility: [facility] Address: [address] [place] [address] Performed By: #### 2 532-0, ####[facility] LABCLIA [id number] [place] [address] Bilirubin [Mass/Vol] 0.3 mg/dL Normal 0.2-1.3 [facility] Comment on above: Order Comment: Speci men Type: BLOOD SPECIMENOrdering Facility: [facility] Address: [address] [place] [address] Performed By: #### 2 532-0, ####[facility] LABCLIA [id number] [place] [address] Calcium [Mass/Vol] 10.2 mg/dL Normal 8.5-10.2 [facility] Comment on above: Order Comment: Speci men Type: BLOOD SPECIMENOrdering Facility: [facility] Address: [address] [place] [address] Performed By: #### 2 532-0, ####[facility] LABCLIA [id number] [place] [address] Chloride [Moles/Vol] 101 mmol/L Normal 97-105 [facility] Comment on above: Order Comment: Speci men Type: BLOOD SPECIMENOrdering Facility: [facility] Address: [address] [place] [address] Performed By: #### 2 532-0, ####[facility] LABCLIA [id number] [place] [address] CO2 [Moles/Vol] 25 mmol/L Normal 22-30 [facility] Comment on above: Order Comment: Speci men Type: BLOOD SPECIMENOrdering Facility: [facility] Address: [address] [place] [address] Performed By: #### 2 532-0, ####[facility] LABCLIA [id number] [place] [address] Creatinine [Mass/Vol] 1.10 mg/dL Normal 0.73-1.22 [facility] Comment on above: Order Comment: Speci men Type: BLOOD SPECIMENOrdering Facility: [facility] Address: [address] [place] [address] Performed By: #### 2 532-0, ####[facility] LABCLIA [id number] [place] [address] Creatinine and Glomerular filtration rate.predicted panel (S/P/Bld) 74 mL/min/1.73m??? Normal >=60 [facility] Comment on above: Order Comment: Sara randle Type: BLOOD SPECIMENOrdering Facility: [facility] Address: [address] [place] [address] Result Comment: Carol mated Glomerular Filtration Rate [...] actual GFR. Performed By: #### 2 532-0, 45563-8 ####[facility] LABIA [id number] [place] [address] Glucose [Mass/Vol] 96 mg/dL Normal 74-99 [facility] Comment on above: Order Comment: Sara randle Type: BLOOD SPECIMENOrdering Facility: [facility] Address: [address] [place] [address] Result Comment: The [place] Diabetes Association (ADA) provides guidance for cutoff [...] Standards of Medical Care in Diabetes 2016, [place] [employer]. Diabetes Care. 2016.39(Suppl 1). Performed By: #### 2 532-0, 42863-7 ####[facility] LABIA [id number] [place] [address] Potassium [Moles/Vol] 4.1 mmol/L Normal 3.7-5.1 [facility] Comment on above: Order Comment: Speci men Type: BLOOD SPECIMENOrdering Facility: [facility] Address: [address] [place] [address] Performed By: #### 2 532-0, 85500-7 ####[facility] LABCLIA [id number] [place] [address] Protein [Mass/Vol] 7.6 g/dL Normal 6.3-8.0 [facility] Comment on above: Order Comment: Speci men Type: BLOOD SPECIMENOrdering Facility: [facility] Address: [address] [place] [address] Performed By: #### 2 532-0, 17905-7 ####[facility] LABCLIA [id number] [place] [address] Sodium [Moles/Vol] 136 mmol/L Normal 136-144 [facility] Comment on above: Order Comment: Speci men Type: BLOOD SPECIMENOrdering Facility: [facility] Address: [address] [place] [address] Performed By: #### 2 532-0, 23581-2 ####[facility] LABCLIA [id number] [place] [address] Urea nitrogen [Mass/Vol] 16 mg/dL Normal 9-24 [facility] Comment on above: Order Comment: Speci men Type: BLOOD SPECIMENOrdering Facility: [facility] Address: [address] [place] [address] Performed By: #### 2 532-0, 47231-5 ####[facility] LABCLIA [id number] [place] [address] LDH SerPl-cCncon 12-25-2023 LDH [Catalytic activity/Vol] 182 U/L Normal 135-225 [facility] Comment on above: Order Comment: Speci men Type: BLOOD SPECIMENOrdering Facility: [facility] Address: [address] [place] [address] Performed By: #### 2 532-0, 75760-3 ####[facility] LABCLIA [id number] [place] [address] Laboratory - Chemistry and C hemistry - challengeon 12-25-2023 LDH [Catalytic activity/Vol] 182 U/L 135 - 225 U/L [facility] Ambulatory Visit Summaryon 0 12-24-2023 Ambulatory Visit Summary KATIA HSAIKH :1955 Visit Date:12/24/2023 Ambulatory Visit Instructions Your [...] for choosing us for your care. Normal [facility] FISH FOR AGGRESSIVE B-CELL L YMPHOMAon 12-24-2023 FISH FOR AGGRESSIVE B-CELL LYMPHOMA Normal [facility] Comment on above: Order Comment: Speci men Type: FORMALIN-FIXED PARAFFIN-EMBEDDED TISSUE SPECIMENOrdering Facility: AP Outside Review Address: , , Result Comment: FISH for Aggressive B-cell Lymphoma TissueLaboratory Accession Number: [id number]: [id number]/Part ID: [id number] ([id number])Sample Type: FFPETSample Description: Right inguinal lymph [...] hybridization analysis was performedusing the following probes ([employer], [place], [place]): LSI MYCdual color, break-apart rearrangement probes, LSI IGH/MYC/TUM4neoumjir, dual fusion probes, LSI BCL2 dual color, break-apartrearrangement probes, and LSI BCL6 dual color, break-apartrearrangement probes.DISCLAIMER:This test was developed and its performance characteristics determinedby the [facility]'s [facility] Pathology and LaboratoryMedicine [place] ([facility]). It has not been cleared or approved bythe FDA. -[facility] is regulated under CLIA as qualified to perform high-complexity testing. This test is used for clinical purposes. It shouldnot be regarded as investigational or for research.Interpretation performed at [facility], [address] [place], [place] [address]. CLIA Number: [id number] reviewed by Chiquita Clemente MD, PhD Performed By: #### L [id number] ####[facility] LABCLIA [id number] [address] OF [place]#### FABCEL ####[facility] LIMSCLIA [id number] [address] OF [facility] General Surgery Office/Clini c Noteon 12-24-2023 General [...] Chiquita Martins, TERRELL Only if needed [address] [place] [address]- Additional Instructions: Problem List/Past Medical History Ongoing [...] inactivated - Not Given Patient Refuses Normal [facility] Comment on above: Result Comment: Elec tronically Signed By: MIGUEL LOFTON, Chiquita Martins\.br\Date and Time Signed: 12/24/23 20:33 EST OUTSIDE SURG PATH SLIDE REVI EWon 12-24-2023 ADDENDUM 1: Normal [facility] Comment on above: Order Comment: Speci men Type: FORMALIN-FIXED PARAFFIN-EMBEDDED TISSUE SPECIMENOrdering Facility: AP Outside Review Address: , , Result Comment: Aggr essive B-Cell Neoplasm Biomarker [id number] ICC Diagnosis: Diffuse large B-cell lymphoma, NOSBiomarker Results:Cell of origin (Landry viticulturist): Germinal centerMYC expression (% tumor cells by IHC): 20%BCL2 expression (% tumor cells by IHC): 90%Ki67 expression (% tumor cells by IHC): 70-80%BCL2 translocation (FISH): NegativeBCL6 translocation (FISH): PositiveMYC translocation (FISH): Negative IGH::MYC translocation (FISH): NegativeAddendum electronically signed by Chioma Pineda DO on 01/08/2024 at 8:48 AM Performed By: #### L [id number] ####[facility] LABCLIA [id number] [address]#### FABCEL ####[facility] LIMSCLIA [id number] [address] CASE REPORT Normal [facility] Comment on above: Order Comment: Speci men Type: FORMALIN-FIXED PARAFFIN-EMBEDDED TISSUE SPECIMENOrdering Facility: AP Outside Review Address: , , Result Comment: Surg [facility] Pathology Report Case: [id number] Provider: Michael Boykin MD Collected: 12/24/2023 08:50 AMOrdering Location: [facility] Received: 12/24/2023 08:49 AM [facility] LaboratoryPathologist: Chioma Pineda, DOSpecimen: SLIDE(S), 26 SLIDES [id number] Performed By: #### L [id number] ####[facility] LABCLIA [id number] [address]#### FABCEL ####[facility] LIMSCLIA [id number] [place] [id number] [facility] DIAGNOSIS COMMENT Normal [facility] Comment on above: Order Comment: Speci [...] been determined by the performing laboratory within [facility]???s [facility] Pathology and Laboratory Medicine [place] ([facility], [facility], [facility], [facility] [place], [facility], [facility], or [facility]) in a manner consistent with CLIA requirements. One or more of these tests have not been cleared or approved by the FDA. [facility] is regulated under CLIA as qualified to perform high-complexity testing. These tests are used for clinical purposes. They should not be regarded as investigational or for research. Positive and negative controls stain appropriately. Performed By: #### L [id number] ####[facility] LABCLIA [id number] [place] [address] [place]#### FABCEL ####[facility] LIMSCLIA [id number] [place] [id number] [place] FINAL DIAGNOSIS Normal [facility] Comment on above: Order Comment: Speci men Type: FORMALIN-FIXED PARAFFIN-EMBEDDED TISSUE SPECIMENOrdering Facility: AP Outside Review Address: , , Result Comment: Outs remi slides from [facility], [place], [place], labeled [id number], collected 12/17/2023:A-B. Right inguinal lymph node, excisional biopsies:-Aggressive large B-cell lymphoma, favor germinal center immunophenotype Performed By: #### L [id number] ####[facility] LABCLIA [id number] [place] [id number] [place]#### FABCEL ####[facility] LIMSCLIA [id number] [place] [id number] [place] FINAL PERFORMING LAB Normal [facility] Comment on above: Order Comment: Speci men Type: FORMALIN-FIXED PARAFFIN-EMBEDDED TISSUE SPECIMENOrdering Facility: AP Outside Review Address: , , Result Comment: Diag nostic interpretation performed at [facility], [address] [place] [address] CLIA# [id number] Director: Lon Kaiser M.D. Performed By: #### L [id number] ####[facility] LABCLIA [id number] [place] [address] [place]#### FABCEL ####[facility] LIMSCLIA [id number] [address] [place] MICROSCOPIC DESCRIPTION Normal [facility] Comment on above: Order Comment: Speci [...] deeper sections of tissue block A5 at [facility]. The lymphoma cells are positive for CD10 (minor subset, in the best preserved area) and MUM1, and are negative for MYC, S100, and JAVID by in situ hybridization. Performed By: #### L [id number] ####[facility] LABCLIA [id number] [address] [place]#### FABCEL ####[facility] LIMSCLIA [id number] [place] [id number] [place] Pathology Noteon 12-24-2023 Pathology Note [id number]#1.00TIFF Normal [facility] Operative Reporton Operative Report [id number]#1.00TIFF Normal [facility] CNPNon 12-22-2023 CNPN Normal [facility] Pathology Noteon 12-22-2023 Pathology Note [id number]#1.00TIFF Normal [facility] Cheng 12-17-2023 L Specimen: [id number] eceived: 12/17/23 Status: JENNAFaye Barros Num: [id number] Spec Type: Surgical Subm Dr: Chiquita Rivera MD FACS Tissues: A Lymph Node - Regional Resection (RT INGUINAL LYMPH NODE) B Lymph Node - Regional Resection (RT ING LUMP/MASS LYMPH) Procedures: HE/11, Gross/Micro L5/2, BCL-2, BCL-6, CD10, CD138, CD20, CD21, CD23, CD3, CD30, CD43, CD5, CYCLIN D1, Ki-67, PAX5, DIFF QWIK Age/ Patient Sex Location Account Attending Physician Katia Shaikh 68/M LABELL [id number] Chiquita Rivera MD FACS SPEC NUM: [id number] RECD: 12/17/23 STATUS: ABIOLA TANNERElizabeth NUM: [id number] FRANDY: 12/17/[address]: Chiquita Rivera MD FACS ENTERED: 12/17/23 [facility] DR: Oleksandr Anguiano SPEC TYPE: Surgical DEPT: ALYSSIA TEJADA ORDERED: HE/11, Gross/Micro L5/2, BCL-2, BCL-6, CD10, CD138, CD20, CD21, CD23, CD3, CD30, CD43, CD5, CYCLIN D1, Ki-67, PAX5, DIFF QWIK ORDERED: HE/11, Gross/Micro L5/2, BCL-2, BCL-6, CD10, CD138, CD20, CD21, CD23, CD3, CD30, CD43, CD5, CYCLIN D1, Ki-67, PAX5, DIFF QWIK Supplemental Report Addendum 3 Entered: 01/10/24-1236 Supplemental for findings of consultation report from [facility], and final diagnosis: A and B, right inguinal lymph node, excisional biopsies: -Aggressive large B-cell lymphoma, favor germinal center immunophenotype Note: -Please also see detailed description in entire report on file Addendum Signed (signature on file) Caro Ocasio MD 01/10/24 1236 -------- Addendum 2 Entered: 12/30/233608 Supplemental for findings of FISH analysis of NHL (non-Hodgkin lymphoma) from [facility]: -------- Specimen: [id number] Received: 12/17/23 Status: ABIOLA Re Num: [id number] Spec Type: Surgical Subm Dr: Chiquita Rivera MD FACS Tissues: A Lymph Node - Regional Resection (RT INGUINAL LYMPH NODE) B Lymph Node - Regional Resection (RT ING LUMP/MASS LYMPH) Procedures: /11, Gross/Micro L5/2, BCL-2, BCL-6, CD10, CD138, CD20, CD21, CD23, CD3, CD30, CD43, CD5, CYCLIN D1, Ki-67, PAX5, DIFF QWIK -------- Patient: Katia Shaikh [id number] (Continued) -------- Specimen: [id number] Received: 12/17/23 (Continued) Supplemental Report (Continued) Signed (signature on file) Caro Ocasio MD 12/21/23 1853 -------- Specimen: [id number] Received: 12/17/23 Status: ABIOLA Barros Num: [id number] Spec Type: Surgical Subm Dr: Chiquita Rivera MD FACS Tissues: A Lymph Node - Regional Resection (RT INGUINAL LYMPH NODE) B Lymph Node - Regional Resection (RT ING LUMP/MASS LYMPH) Procedures: HE/11, Gross/Micro L5/2, BCL-2, BCL-6, CD10, CD138, CD20, CD21, CD23, CD3, CD30, CD43, CD5, CYCLIN D1, Ki-67, PAX5, DIFF QWIK -------- Patient: Katia Shaikh [id number] (Continued) -------- Specimen: [id number] Received: 12/17/23-161 (Continued) Supplemental Report (Continued) -Results: Abnormal ALK for lymphoma not detected BCL6(3q27) rearrangement detected CCND1(BCL1)/IgH t(11;14) not detected IgH(14 q32) rearrangement not detected IgH/Bcl-2 t(14;18) not detected (atypical) MALT1(18q21) rearrangement not detected (atypical) Note: -Trisomy 18 is observed as an additional abnormality in lymphoma with other recurring abnormalities -Please also see entire report on file for detailed description Addendum Signed (signature on file) Todd-Ben Ocasio MD 12/30/23 0857 -------- Addendum 1 Entered: 12/24/23-807 Supplemental for findings of high-grade B-cell lymphoma FISH reflex panel from [facility]: -MYC (rearrangement): Not detected -MYC (amplification): Not detected Note: -Pending additional testing, and the further findings of the consultation report from [facility] for final interpretation or classification of the lymphoma to follow Addendum Signed (signature on file) Caro Ocasio MD 12/24/23 0808 -------- -------- Specimen: [id number] Received: 12/17/23 Status: ABIOLA Barros Num: [id number] Spec Type: Surgical Subm Dr: Chiquita Rivera MD FACS Tissues: A (more content not included)... Normal [facility] CNPNon 12-15-2023 CNPN Normal [facility] ECG 12-Leadon 12-15-2023 ECG 12-Lead [id number]#1.00TIFF Normal [facility] Consent for Procedure/Surger yon 12-11-2023 Consent for Procedure/Surgery [id number]#1.00TIFF Normal [facility] Ambulatory Visit Summaryon 0 12-09-2023 Ambulatory [...] you for choosing us for your care. [facility] RAD - Nuclear Medicine Repor ton 12-09-2023 RAD - Nuclear Medicine Report [id number]#1.00TIFF [facility] RAD - Ultrasound Reporton RAD - Ultrasound Report [id number]#1.00TIFF [facility] CNPNon 12-01-2023 [facility] RAD - Ultrasound Reporton RAD - Ultrasound Report [id number]#1.00TIFF [facility] CNPNon 11-24-2023 CNPN Normal [facility] Physician Referralon 024 Physician Referral [id number]#1.00TIFF Normal [facility] CNOVSPon 11-20-2023 CNOVSP Normal [facility] CNPNon 11-20-2023 CNPN Normal [facility] CNPNon 11-19-2023 CNPN Normal [facility] CBC W Auto Differential pane l (Bld)on 11-18-2023 Basophils (Bld) [#/Vol] 0.05 10*3/uL [facility] Basophils/100 WBC (Bld) 1.5 % [facility] Differential cell count method Nom (Bld) Auto [facility] Eosinophils (Bld) [#/Vol] 0.16 10*3/uL [facility] Eosinophils/100 WBC (Bld) 4.8 % [facility] Erythrocyte distribution width (RBC) [Ratio] 14.1 % 11.5 - 15.0 % [facility] Hematocrit (Bld) [Volume fraction] 41.5 % 39.0 - 51.0 % [facility] Hemoglobin (Bld) [Mass/Vol] 14.6 g/dL 13.0 - 17.0 g/dL [facility] Immature granulocytes (Bld) [#/Vol] [facility] Immature granulocytes/100 WBC (Bld) 0.6 % [facility] Interpretation and review of laboratory results Abnormal [facility] Lymphocytes (Bld) [#/Vol] 0.32 10*3/uL Low [facility] Lymphocytes/100 WBC (Bld) 9.5 % [facility] MCH (RBC) [Entitic mass] 31.9 pg 26.0 - 34.0 pg [facility] MCHC (RBC) [Mass/Vol] 35.2 g/dL 30.5 - 36.0 g/dL [facility] MCV (RBC) [Entitic vol] 90.8 fL 80.0 - 100.0 fL [facility] Monocytes (Bld) [#/Vol] 0.62 10*3/uL [facility] Monocytes/100 WBC (Bld) 18.5 % [facility] Neutrophils (Bld) [#/Vol] 2.19 10*3/uL [facility] Neutrophils/100 WBC (Bld) 65.1 % [facility] Nucleated RBC (Bld) [#/Vol] [facility] Nucleated RBC/100 WBC (Bld) [Ratio] 0.0 % /100 WBC [facility] Platelet mean volume (Bld) [Entitic vol] 9.5 fL 9.0 - 12.7 fL [facility] Platelets (Bld) [#/Vol] 184 10*3/uL [facility] RBC (Bld) [#/Vol] 4.57 10*6/uL 4.20 - 6.00 m/uL [facility] WBC (Bld) [#/Vol] 3.36 10*3/uL Low [facility] Basophils (Bld) [#/Vol] 0.05 10*3/uL Normal <0.11 [facility] Comment on above: Order Comment: Speci men Type: BLOOD SPECIMENOrdering Facility: [facility] Address: [address] [place] [address] Performed By: #### 5 7021-8 ####[facility] LABCLIA [id number] [place] [address] Basophils/100 WBC (Bld) 1.5 % Normal [facility] Comment on above: Order Comment: Speci men Type: BLOOD SPECIMENOrdering Facility: [facility] Address: [address] [place] [address] Performed By: #### 5 7021-8 ####[facility] LABCLIA [id number] [place] [address] Differential cell count method Nom (Bld) Auto Normal [facility] Comment on above: Order Comment: Speci men Type: BLOOD SPECIMENOrdering Facility: [facility] Address: [address] [place] [address] Performed By: #### 5 7021-8 ####[facility] LABIA [id number] [place] [address] Eosinophils (Bld) [#/Vol] 0.16 10*3/uL Normal <0.46 [facility] Comment on above: Order Comment: Speci men Type: BLOOD SPECIMENOrdering Facility: [facility] Address: [address] [place] [address] Performed By: #### 5 7021-8 ####[facility] LABCLIA [id number] [place] [address] Eosinophils/100 WBC (Bld) 4.8 % Normal [facility] Comment on above: Order Comment: Speci men Type: BLOOD SPECIMENOrdering Facility: [facility] Address: [address] [place] [address] Performed By: #### 5 7021-8 ####[facility] LABCLIA [id number] [place] [address] Erythrocyte distribution width (RBC) [Ratio] 14.1 % Normal 11.5-15.0 [facility] Comment on above: Order Comment: Speci men Type: BLOOD SPECIMENOrdering Facility: [facility] Address: [address] [place] [address] Performed By: #### 5 7021-8 ####[facility] LABCLIA [id number] [place] [address] Hematocrit (Bld) [Volume fraction] 41.5 % Normal 39.0-51.0 [facility] Comment on above: Order Comment: Speci men Type: BLOOD SPECIMENOrdering Facility: [facility] Address: [address] [place] [address] Performed By: #### 5 7021-8 ####[facility] LABCLIA [id number] [place] [address] Hemoglobin (Bld) [Mass/Vol] 14.6 g/dL Normal 13.0-17.0 [facility] Comment on above: Order Comment: Speci men Type: BLOOD SPECIMENOrdering Facility: [facility] Address: [address] [place] [address] Performed By: #### 5 7021-8 ####[facility] LABCLIA [id number] [place] [address] Immature granulocytes (Bld) [#/Vol] 10*3/uL Normal <0.10 [facility] Comment on above: Order Comment: Speci men Type: BLOOD SPECIMENOrdering Facility: [facility] Address: [address] [place] [address] Performed By: #### 5 7021-8 ####[facility] LABCLIA [id number] [place] [address] Immature granulocytes/100 WBC (Bld) 0.6 % Normal [facility] Comment on above: Order Comment: Speci men Type: BLOOD SPECIMENOrdering Facility: [facility] Address: [address] [place] [address] Performed By: #### 5 7021-8 ####[facility] LABCLIA [id number] [place] [address] Lymphocytes (Bld) [#/Vol] 0.32 10*3/uL Low 1.00-4.00 [facility] Comment on above: Order Comment: Speci men Type: BLOOD SPECIMENOrdering Facility: [facility] Address: [address] [place] [address] Performed By: #### 5 7021-8 ####[facility] LABCLIA [id number] [place] [address] Lymphocytes/100 WBC (Bld) 9.5 % Normal [facility] Comment on above: Order Comment: Speci men Type: BLOOD SPECIMENOrdering Facility: [facility] Address: [address] [place] [address] Performed By: #### 5 7021-8 ####[facility] LABCLIA [id number] [place] [address] MCH (RBC) [Entitic mass] 31.9 pg Normal 26.0-34.0 [facility] Comment on above: Order Comment: Speci men Type: BLOOD SPECIMENOrdering Facility: [facility] Address: [address] [place] [address] Performed By: #### 5 7021-8 ####[facility] LABCLIA [id number] [place] [address] MCHC (RBC) [Mass/Vol] 35.2 g/dL Normal 30.5-36.0 [facility] Comment on above: Order Comment: Speci men Type: BLOOD SPECIMENOrdering Facility: [facility] Address: [address] [place] [address] Performed By: #### 5 7021-8 ####[facility] LABCLIA [id number] [place] [address] MCV (RBC) [Entitic vol] 90.8 fL Normal 80.0-100.0 [facility] Comment on above: Order Comment: Speci men Type: BLOOD SPECIMENOrdering Facility: [facility] Address: [address] [place] [address] Performed By: #### 5 7021-8 ####[facility] LABCLIA [id number] [place] [address] Monocytes (Bld) [#/Vol] 0.62 10*3/uL Normal <0.87 [facility] Comment on above: Order Comment: Speci men Type: BLOOD SPECIMENOrdering Facility: [facility] Address: [address] [place] [address] Performed By: #### 5 7021-8 ####[facility] LABCLIA [id number] [place] [address] Monocytes/100 WBC (Bld) 18.5 % Normal [facility] Comment on above: Order Comment: Speci men Type: BLOOD SPECIMENOrdering Facility: [facility] Address: [address] [place] [address] Performed By: #### 5 7021-8 ####[facility] LABCLIA [id number] [place] [address] Neutrophils (Bld) [#/Vol] 2.19 10*3/uL Normal 1.45-7.50 [facility] Comment on above: Order Comment: Speci men Type: BLOOD SPECIMENOrdering Facility: [facility] Address: [address] [place] [address] Performed By: #### 5 7021-8 ####[facility] LABCLIA [id number] [place] [address] Neutrophils/100 WBC (Bld) 65.1 % Normal [facility] Comment on above: Order Comment: Speci men Type: BLOOD SPECIMENOrdering Facility: [facility] Address: [address] [place] [address] Performed By: #### 5 7021-8 ####[facility] LABCLIA [id number] [place] [address] Nucleated RBC (Bld) [#/Vol] 10*3/uL Normal <0.01 [facility] Comment on above: Order Comment: Speci men Type: BLOOD SPECIMENOrdering Facility: [facility] Address: [address] [place] [address] Performed By: #### 5 7021-8 ####[facility] LABCLIA [id number] [place] [address] Nucleated RBC/100 WBC (Bld) [Ratio] 0.0 /100 WBC Normal [facility] Comment on above: Order Comment: Speci men Type: BLOOD SPECIMENOrdering Facility: [facility] Address: [address] [place] [address] Performed By: #### 5 7021-8 ####[facility] LABCLIA [id number] [place] [address] Platelet mean volume (Bld) [Entitic vol] 9.5 fL Normal 9.0-12.7 [facility] Comment on above: Order Comment: Speci men Type: BLOOD SPECIMENOrdering Facility: [facility] Address: [address] [place] [address] Performed By: #### 5 7021-8 ####[facility] LABIA [id number] [place] [address] Platelets (Bld) [#/Vol] 184 10*3/uL Normal 150-400 [facility] Comment on above: Order Comment: Speci men Type: BLOOD SPECIMENOrdering Facility: [facility] Address: [address] [place] [address] Performed By: #### 5 7021-8 ####[facility] LABCLIA [id number] [place] [address] RBC (Bld) [#/Vol] 4.57 10*6/uL Normal 4.20-6.00 [facility] Comment on above: Order Comment: Speci men Type: BLOOD SPECIMENOrdering Facility: [facility] Address: [address] [place] [address] Performed By: #### 5 7021-8 ####[facility] LABCLIA [id number] [place] [address] WBC (Bld) [#/Vol] 3.36 10*3/uL Low 3.70-11.00 [facility] Comment on above: Order Comment: Speci men Type: BLOOD SPECIMENOrdering Facility: [facility] Address: [address] [place] [address] Performed By: #### 5 7021-8 ####[facility] LABCLIA [id number] [place] [address] Comprehensive metabolic 2000 panelOrdered By: Benson Alcaraz on 11-18-2023 Albumin [Mass/Vol] 4.5 g/dL 3.9 - 4.9 g/dL [facility] ALP [Catalytic activity/Vol] 171 U/L High 38 - 113 U/L [facility] ALT [Catalytic activity/Vol] 19 U/L 10 - 54 U/L [facility] Anion gap [Moles/Vol] 11 mmol/L 9 - 18 mmol/L [facility] AST [Catalytic activity/Vol] 21 U/L 14 - 40 U/L [facility] Bilirubin [Mass/Vol] 0.2 mg/dL 0.2 - 1 .3 mg/dL [facility] Calcium [Mass/Vol] 9.8 mg/dL 8.5 - 10. 2 mg/dL [facility] Chloride [Moles/Vol] 107 mmol/L High 97 - 10 5 mmol/L [facility] CO2 [Moles/Vol] 25 mmol/L 22 - 30 mmol/L [facility] Creatinine [Mass/Vol] 0.96 mg/dL 0.73 - 1.22 mg/dL [facility] GFR/1.73 sq M.predicted among non-blacks MDRD (S/P/Bld) [Vol rate/Area] 87 mL/min/{1.73_m2} - PINF [facility] Comment on above: Estimated Glomerular Filtration Rate [...] [Mass/Vol] 94 mg/dL 74 - 99 mg/dL [facility] Comment on above: The [place] Diab[employer] Association (ADA) provides guidance for [...] Standards of Medical Care in Diabetes 2016, [place] [employer]. Diabetes Care. 2016.39(Suppl 1). Interpretation and review of laboratory results Abnormal [facility] Potassium [Moles/Vol] 4.2 mmol/L 3.7 - 5.1 mmol/L [facility] Protein [Mass/Vol] 7.3 g/dL 6.3 - 8.0 g/dL [facility] Sodium [Moles/Vol] 143 mmol/L 136 - 144 mmol/L [facility] Urea nitrogen [Mass/Vol] 15 mg/dL 9 - 24 mg/dL [facility] Comprehensive metabolic 2000 panelon 11-18-2023 Albumin [Mass/Vol] 4.5 g/dL Normal 3.9-4.9 [facility] Comment on above: Order Comment: Speci men Type: BLOOD SPECIMENOrdering Facility: [facility] Address: [address] [place] [address] Performed By: #### 3 084-1, ####[facility] LABCLIA [id number] [place] [address] ALP [Catalytic activity/Vol] 171 U/L High 38-113 [facility] Comment on above: Order Comment: Speci men Type: BLOOD SPECIMENOrdering Facility: [facility] Address: [address] [place] [address] Performed By: #### 3 084-1, ####MARYDCAYLA [facility] LABCLIA [id number] [place] [address] ALT [Catalytic activity/Vol] 19 U/L Normal 10-54 [facility] Comment on above: Order Comment: Speci men Type: BLOOD SPECIMENOrdering Facility: [facility] Address: [address] [place] [address] Performed By: #### 3 084-1, ####[facility] LABCLIA [id number] [place] [address] Anion gap [Moles/Vol] 11 mmol/L Normal 9-18 [facility] Comment on above: Order Comment: Speci men Type: BLOOD SPECIMENOrdering Facility: [facility] Address: [address] [place] [address] Performed By: #### 3 084-1, ####[facility] LABCLIA [id number] [place] [address] AST [Catalytic activity/Vol] 21 U/L Normal 14-40 [facility] Comment on above: Order Comment: Speci men Type: BLOOD SPECIMENOrdering Facility: [facility] Address: [address] [place] [address] Performed By: #### 3 084-1, 00303-4 ####[facility] LABCLIA [id number] [place] [address] Bilirubin [Mass/Vol] 0.2 mg/dL Normal 0.2-1.3 [facility] Comment on above: Order Comment: Speci men Type: BLOOD SPECIMENOrdering Facility: [facility] Address: [address] [place] [address] Performed By: #### 3 084-1, ####[facility] LABCLIA [id number] [place] [address] Calcium [Mass/Vol] 9.8 mg/dL Normal 8.5-10.2 [facility] Comment on above: Order Comment: Speci men Type: BLOOD SPECIMENOrdering Facility: [facility] Address: [address] [place] [address] Performed By: #### 3 084-1, ####MARYDCAYLA [facility] LABCLIA [id number] [place] [address] Chloride [Moles/Vol] 107 mmol/L High 97-105 [facility] Comment on above: Order Comment: Speci men Type: BLOOD SPECIMENOrdering Facility: [facility] Address: [address] [place] [address] Performed By: #### 3 084-1, ####[facility] LABCLIA [id number] [place] [address] CO2 [Moles/Vol] 25 mmol/L Normal 22-30 [facility] Comment on above: Order Comment: Speci men Type: BLOOD SPECIMENOrdering Facility: [facility] Address: [address] [place] [address] Performed By: #### 3 084-1, ####[facility] LABCLIA [id number] [place] [address] Creatinine [Mass/Vol] 0.96 mg/dL Normal 0.73-1.22 [facility] Comment on above: Order Comment: Speci men Type: BLOOD SPECIMENOrdering Facility: [facility] Address: [address] [place] [address] Performed By: #### 3 084-1, 75651-4 ####[facility] LABCLIA [id number] [place] [address] Creatinine and Glomerular filtration rate.predicted panel (S/P/Bld) 87 mL/min/1.73m??? Normal >=60 [facility] Comment on above: Order Comment: Sara randle Type: BLOOD SPECIMENOrdering Facility: [facility] Address: [address] [place] [address] Result Comment: Carol mated Glomerular Filtration Rate [...] actual GFR. Performed By: #### 3 084-1, 50681-1 ####[facility] LABCLIA [id number] [place] [address] Glucose [Mass/Vol] 94 mg/dL Normal 74-99 [facility] Comment on above: Order Comment: Sara randle Type: BLOOD SPECIMENOrdering Facility: [facility] Address: [address] [place] [address] Result Comment: The [place] Diabetes Association (ADA) provides guidance for cutoff [...] Standards of Medical Care in Diabetes 2016, [place] [employer]. Diabetes Care. 2016.39(Suppl 1). Performed By: #### 3 084-, ####[facility] LABCLIA [id number] [place] [address] Potassium [Moles/Vol] 4.2 mmol/L Normal 3.7-5.1 [facility] Comment on above: Order Comment: Speci men Type: BLOOD SPECIMENOrdering Facility: [facility] Address: [address] [place] [address] Performed By: #### 3 084-1, ####[facility] LABCLIA [id number] [place] [address] Protein [Mass/Vol] 7.3 g/dL Normal 6.3-8.0 [facility] Comment on above: Order Comment: Speci men Type: BLOOD SPECIMENOrdering Facility: [facility] Address: [address] [place] [address] Performed By: #### 3 084-1, ####[facility] LABCLIA [id number] [place] [address] Sodium [Moles/Vol] 143 mmol/L Normal 136-144 [facility] Comment on above: Order Comment: Speci men Type: BLOOD SPECIMENOrdering Facility: [facility] Address: [address] [place] [address] Performed By: #### 3 084-1, ####[facility] LABCLIA [id number] [place] [address] Urea nitrogen [Mass/Vol] 15 mg/dL Normal 9-24 [facility] Comment on above: Order Comment: Speci men Type: BLOOD SPECIMENOrdering Facility: [facility] Address: [address] [place] [address] Performed By: #### 3 084-1, ####[facility] LABCLIA [id number] [place] [address] GLUCOSE, BLOOD (POC)on 11-18 Glucose [Mass/Vol] 91 mg/dL 74 - 99 mg/dL [facility] Comment on above: Location:[facility], [address] [place] [address] , [place], [place], [address] The Accu-Chek Inform II glucose meter has [...] blood gas instrument) in the above situations. [facility] NM PET/CT SKULL-THIGH SUBQon 11-18-2023 NM PET/CT SKULL-THIGH SUBQ Normal [facility] PET+CT Guidance for localiza tion of [...] any questions regarding this interpretation, please call [phone]. If you are unable to reach us at the number above, please feel free to contact [facility] at [phone]. DIVISION OF RADIOLOGY * * *Final Report* [...] - Background liver activity (SUV max): 3.7 Remote Sensing Scientist (topogram) images: No additional findings. HEAD AND [...] No abnormal uptake. DIVISION OF RADIOLOGY Provider, [facility] - 11/18/2023 * * *Final Report* * [...] - Background liver activity (SUV max): 3.7 Remote Sensing Scientist (topogram) images: No additional findings. HEAD AND [...] any questions regarding this interpretation, please call [phone]. If you are unable to reach us at the number above, please feel free to contact [facility] eRadiology at [phone]. [facility] Radiology Study observation (narrative) [facility] PET+CT Guidance for localiza tion of tumor of Skull base to mid-thigh-- W 18F-FDG IVOrdered By: Ccf Provider on 11-18-2023 [facility] URIC ACID BLOODon 11-18-2023 Urate [Mass/Vol] 6.7 mg/dL 4.0 - 8.1 mg/dL [facility] Urate SerPl-mCncon Urate [Mass/Vol] 6.7 mg/dL Normal 4.0-8.1 [facility] Comment on above: Order Comment: Speci men Type: BLOOD SPECIMENOrdering Facility: [facility] Address: [address] [place] [address] Performed By: #### 3 084-1, 98501-4 ####[facility] LABCLIA [id number] [place] [address] Urate [Mass/Vol]on Interpretation and review of laboratory results Normal [facility] CBC W Auto Differential pane l (Bld)on 10-28-2023 Basophils (Bld) [#/Vol] 0.06 10*3/uL Normal <0.11 [facility] Comment on above: Order Comment: Speci men Type: BLOOD SPECIMENOrdering Facility: [facility] Address: [address] [place] [address] Performed By: #### 5 7021-8 ####[facility] LABCLIA [id number] [place] [address] Basophils/100 WBC (Bld) 1.4 % Normal [facility] Comment on above: Order Comment: Speci men Type: BLOOD SPECIMENOrdering Facility: [facility] Address: [address] [place] [address] Performed By: #### 5 7021-8 ####[facility] LABCLIA [id number] [place] [address] Differential cell count method Nom (Bld) Auto Normal [facility] Comment on above: Order Comment: Speci men Type: BLOOD SPECIMENOrdering Facility: [facility] Address: [address] [place] [address] Performed By: #### 5 7021-8 ####[facility] LABCLIA [id number] [place] [address] Eosinophils (Bld) [#/Vol] 0.23 10*3/uL Normal <0.46 [facility] Comment on above: Order Comment: Speci men Type: BLOOD SPECIMENOrdering Facility: [facility] Address: [address] [place] [address] Performed By: #### 5 7021-8 ####[facility] LABCLIA [id number] [place] [address] Eosinophils/100 WBC (Bld) 5.2 % Normal [facility] Comment on above: Order Comment: Speci men Type: BLOOD SPECIMENOrdering Facility: [facility] Address: [address] [place] [address] Performed By: #### 5 7021-8 ####[facility] LABCLIA [id number] [place] [address] Erythrocyte distribution width (RBC) [Ratio] 14.0 % Normal 11.5-15.0 [facility] Comment on above: Order Comment: Speci men Type: BLOOD SPECIMENOrdering Facility: [facility] Address: [address] [place] [address] Performed By: #### 5 7021-8 ####[facility] LABIA [id number] [place] [address] Hematocrit (Bld) [Volume fraction] 39.6 % Normal 39.0-51.0 [facility] Comment on above: Order Comment: Speci men Type: BLOOD SPECIMENOrdering Facility: [facility] Address: [address] [place] [address] Performed By: #### 5 7021-8 ####[facility] LABCLIA [id number] [place] [address] Hemoglobin (Bld) [Mass/Vol] 13.8 g/dL Normal 13.0-17.0 [facility] Comment on above: Order Comment: Speci men Type: BLOOD SPECIMENOrdering Facility: [facility] Address: [address] [place] [address] Performed By: #### 5 7021-8 ####[facility] LABCLIA [id number] [place] [address] Immature granulocytes (Bld) [#/Vol] 0.04 10*3/uL Normal <0.10 [facility] Comment on above: Order Comment: Speci men Type: BLOOD SPECIMENOrdering Facility: [facility] Address: [address] [place] [address] Performed By: #### 5 7021-8 ####[facility] LABCLIA [id number] [place] [address] Immature granulocytes/100 WBC (Bld) 0.9 % Normal [facility] Comment on above: Order Comment: Speci men Type: BLOOD SPECIMENOrdering Facility: [facility] Address: [address] [place] [address] Performed By: #### 5 7021-8 ####[facility] LABCLIA [id number] [place] [address] Lymphocytes (Bld) [#/Vol] 0.46 10*3/uL Low 1.00-4.00 [facility] Comment on above: Order Comment: Speci men Type: BLOOD SPECIMENOrdering Facility: [facility] Address: [address] [place] [address] Performed By: #### 5 7021-8 ####[facility] LABCLIA [id number] [place] [address] Lymphocytes/100 WBC (Bld) 10.5 % Normal [facility] Comment on above: Order Comment: Speci men Type: BLOOD SPECIMENOrdering Facility: [facility] Address: [address] [place] [address] Performed By: #### 5 7021-8 ####[facility] LABCLIA [id number] [place] [address] MCH (RBC) [Entitic mass] 30.8 pg Normal 26.0-34.0 [facility] Comment on above: Order Comment: Speci men Type: BLOOD SPECIMENOrdering Facility: [facility] Address: [address] [place] [address] Performed By: #### 5 7021-8 ####[facility] LABIA [id number] [place] [address] MCHC (RBC) [Mass/Vol] 34.8 g/dL Normal 30.5-36.0 [facility] Comment on above: Order Comment: Speci men Type: BLOOD SPECIMENOrdering Facility: [facility] Address: [address] [place] [address] Performed By: #### 5 7021-8 ####[facility] LABIA [id number] [place] [address] MCV (RBC) [Entitic vol] 88.4 fL Normal 80.0-100.0 [facility] Comment on above: Order Comment: Speci men Type: BLOOD SPECIMENOrdering Facility: [facility] Address: [address] [place] [address] Performed By: #### 5 7021-8 ####[facility] LABIA [id number] [place] [address] Monocytes (Bld) [#/Vol] 0.82 10*3/uL Normal <0.87 [facility] Comment on above: Order Comment: Speci men Type: BLOOD SPECIMENOrdering Facility: [facility] Address: [address] [place] [address] Performed By: #### 5 7021-8 ####[facility] LABCLIA [id number] [place] [address] Monocytes/100 WBC (Bld) 18.7 % Normal [facility] Comment on above: Order Comment: Speci men Type: BLOOD SPECIMENOrdering Facility: [facility] Address: [address] [place] [address] Performed By: #### 5 7021-8 ####[facility] LABCLIA [id number] [place] [address] Neutrophils (Bld) [#/Vol] 2.78 10*3/uL Normal 1.45-7.50 [facility] Comment on above: Order Comment: Speci men Type: BLOOD SPECIMENOrdering Facility: [facility] Address: [address] [place] [address] Performed By: #### 5 7021-8 ####[facility] LABCLIA [id number] [place] [address] Neutrophils/100 WBC (Bld) 63.3 % Normal [facility] Comment on above: Order Comment: Speci men Type: BLOOD SPECIMENOrdering Facility: [facility] Address: [address] [place] [address] Performed By: #### 5 7021-8 ####[facility] LABCLIA [id number] [place] [address] Nucleated RBC (Bld) [#/Vol] 10*3/uL Normal <0.01 [facility] Comment on above: Order Comment: Speci men Type: BLOOD SPECIMENOrdering Facility: [facility] Address: [address] [place] [address] Performed By: #### 5 7021-8 ####[facility] LABIA [id number] [place] [address] Nucleated RBC/100 WBC (Bld) [Ratio] 0.0 /100 WBC Normal [facility] Comment on above: Order Comment: Speci men Type: BLOOD SPECIMENOrdering Facility: [facility] Address: [address] [place] [address] Performed By: #### 5 7021-8 ####[facility] LABCLIA [id number] [place] [address] Platelet mean volume (Bld) [Entitic vol] 10.0 fL Normal 9.0-12.7 [facility] Comment on above: Order Comment: Speci men Type: BLOOD SPECIMENOrdering Facility: [facility] Address: [address] [place] [address] Performed By: #### 5 7021-8 ####[facility] LABCLIA [id number] [place] [address] Platelets (Bld) [#/Vol] 165 10*3/uL Normal 150-400 [facility] Comment on above: Order Comment: Speci men Type: BLOOD SPECIMENOrdering Facility: [facility] Address: [address] [place] [address] Performed By: #### 5 7021-8 ####[facility] LABCLIA [id number] [place] [address] RBC (Bld) [#/Vol] 4.48 10*6/uL Normal 4.20-6.00 [facility] Comment on above: Order Comment: Speci men Type: BLOOD SPECIMENOrdering Facility: [facility] Address: [address] [place] [address] Performed By: #### 5 7021-8 ####[facility] LABCLIA [id number] [place] [address] WBC (Bld) [#/Vol] 4.39 10*3/uL Normal 3.70-11.00 [facility] Comment on above: Order Comment: Speci men Type: BLOOD SPECIMENOrdering Facility: [facility] Address: [address] [place] [address] Performed By: #### 5 7021-8 ####[facility] LABCLIA [id number] [place] [address] CNOVSPon 10-28-2023 CNOVSP Normal [facility] Comprehensive metabolic 2000 panelon 10-28-2023 Albumin [Mass/Vol] 4.2 g/dL Normal 3.9-4.9 [facility] Comment on above: Order Comment: Speci men Type: BLOOD SPECIMENOrdering Facility: [facility] Address: [address] [place] [address] Performed By: #### 2 4323-8 ####[facility] LABCLIA [id number] [place] [address] ALP [Catalytic activity/Vol] 163 U/L High 38-113 [facility] Comment on above: Order Comment: Speci men Type: BLOOD SPECIMENOrdering Facility: [facility] Address: [address] [place] [address] Performed By: #### 2 4323-8 ####[facility] LABCLIA [id number] [place] [address] ALT [Catalytic activity/Vol] 19 U/L Normal 10-54 [facility] Comment on above: Order Comment: Speci men Type: BLOOD SPECIMENOrdering Facility: [facility] Address: [address] [place] [address] Performed By: #### 2 4323-8 ####[facility] LABCLIA [id number] [place] [address] Anion gap [Moles/Vol] 15 mmol/L Normal 9-18 [facility] Comment on above: Order Comment: Speci men Type: BLOOD SPECIMENOrdering Facility: [facility] Address: [address] [place] [address] Performed By: #### 2 4323-8 ####[facility] LABIA [id number] [place] [address] AST [Catalytic activity/Vol] 19 U/L Normal 14-40 [facility] Comment on above: Order Comment: Speci men Type: BLOOD SPECIMENOrdering Facility: [facility] Address: [address] [place] [address] Performed By: #### 2 4323-8 ####[facility] LABCLIA [id number] [place] [address] Bilirubin [Mass/Vol] 0.3 mg/dL Normal 0.2-1.3 [facility] Comment on above: Order Comment: Speci men Type: BLOOD SPECIMENOrdering Facility: [facility] Address: [address] [place] [address] Performed By: #### 2 4323-8 ####[facility] LABCLIA [id number] [place] [address] Calcium [Mass/Vol] 9.7 mg/dL Normal 8.5-10.2 [facility] Comment on above: Order Comment: Speci men Type: BLOOD SPECIMENOrdering Facility: [facility] Address: [address] [place] [address] Performed By: #### 2 4323-8 ####[facility] LABCLIA [id number] [place] [address] Chloride [Moles/Vol] 104 mmol/L Normal 97-105 [facility] Comment on above: Order Comment: Speci men Type: BLOOD SPECIMENOrdering Facility: [facility] Address: [address] [place] [address] Performed By: #### 2 4323-8 ####[facility] LABCLIA [id number] [place] [address] CO2 [Moles/Vol] 21 mmol/L Low 22-30 [facility] Comment on above: Order Comment: Speci men Type: BLOOD SPECIMENOrdering Facility: [facility] Address: [address] [place] [address] Performed By: #### 2 4323-8 ####[facility] LABCLIA [id number] [place] [address] Creatinine [Mass/Vol] 0.96 mg/dL Normal 0.73-1.22 [facility] Comment on above: Order Comment: Sara randle Type: BLOOD SPECIMENOrdering Facility: [facility] Address: [address] [place] [address] Performed By: #### 2 4323-8 ####[facility] LABCLIA [id number] [place] [address] Creatinine and Glomerular filtration rate.predicted panel (S/P/Bld) 87 mL/min/1.73m??? Normal >=60 [facility] Comment on above: Order Comment: Specjos men Type: BLOOD SPECIMENOrdering Facility: [facility] Address: [address] [place] [address] Result Comment: Carol mated Glomerular Filtration Rate [...] actual GFR. Performed By: #### 2 4323-8 ####[facility] LABCLIA [id number] [place] [address] Glucose [Mass/Vol] 103 mg/dL High 74-99 [facility] Comment on above: Order Comment: Sara randle Type: BLOOD SPECIMENOrdering Facility: [facility] Address: [address] [place] [address] Result Comment: The [place] [employer] (ADA) provides guidance for cutoff [...] Standards of Medical Care in Diabetes 2016, [place] [employer]. Diabetes Care. 2016.39(Suppl 1). Performed By: #### 2 4323-8 ####[facility] LABCLIA [id number] [place] [address] Potassium [Moles/Vol] 4.3 mmol/L Normal 3.7-5.1 [facility] Comment on above: Order Comment: Speci men Type: BLOOD SPECIMENOrdering Facility: [facility] Address: [address] [place] [address] Performed By: #### 2 4323-8 ####[facility] LABCLIA [id number] [place] [address] Protein [Mass/Vol] 7.1 g/dL Normal 6.3-8.0 [facility] Comment on above: Order Comment: Speci men Type: BLOOD SPECIMENOrdering Facility: [facility] Address: [address] [place] [address] Performed By: #### 2 4323-8 ####[facility] LABCLIA [id number] [place] [address] Sodium [Moles/Vol] 140 mmol/L Normal 136-144 [facility] Comment on above: Order Comment: Speci men Type: BLOOD SPECIMENOrdering Facility: [facility] Address: [address] [place] [address] Performed By: #### 2 4323-8 ####[facility] LABCLIA [id number] [place] [address] Urea nitrogen [Mass/Vol] 15 mg/dL Normal 9-24 [facility] Comment on above: Order Comment: Speci men Type: BLOOD SPECIMENOrdering Facility: [facility] Address: [address] [place] [address] Performed By: #### 2 4323-8 ####[facility] LABIA [id number] [place] [address] CNPNon 10-23-2023 CNPN Normal [facility] CBC W Auto Differential pane l (Bld)on 09-30-2023 Basophils (Bld) [#/Vol] 0.06 10*3/uL <0.11 k/uL [facility] Basophils/100 WBC (Bld) 1.1 % [facility] Differential cell count method Nom (Bld) Auto [facility] Eosinophils (Bld) [#/Vol] 0.24 10*3/uL <0.46 k/uL [facility] Eosinophils/100 WBC (Bld) 4.4 % [facility] Erythrocyte distribution width (RBC) [Ratio] 14.6 % 11.5 - 15.0 % [facility] Hematocrit (Bld) [Volume fraction] 40.7 % 39.0 - 51.0 % [facility] Hemoglobin (Bld) [Mass/Vol] 14.1 g/dL 13.0 - 17.0 g/dL [facility] Immature granulocytes (Bld) [#/Vol] 0.07 10*3/uL <0.10 k/uL [facility] Immature granulocytes/100 WBC (Bld) 1.3 % [facility] Lymphocytes (Bld) [#/Vol] 0.80 10*3/uL Low 1.00 - 4.00 k/uL [facility] Lymphocytes/100 WBC (Bld) 14.7 % [facility] MCH (RBC) [Entitic mass] 30.5 pg 26.0 - 34.0 pg [facility] MCHC (RBC) [Mass/Vol] 34.6 g/dL 30.5 - 36.0 g/dL [facility] MCV (RBC) [Entitic vol] 87.9 fL 80.0 - 100.0 fL [facility] Monocytes (Bld) [#/Vol] 1.18 10*3/uL High <0.87 k/uL [facility] Monocytes/100 WBC (Bld) 21.7 % [facility] Neutrophils (Bld) [#/Vol] 3.08 10*3/uL 1.45 - 7.50 k/uL [facility] Neutrophils/100 WBC (Bld) 56.8 % [facility] Nucleated RBC (Bld) [#/Vol] <0.01 k/uL [facility] Nucleated RBC/100 WBC (Bld) [Ratio] 0.0 /100 WBC [facility] Platelet mean volume (Bld) [Entitic vol] 9.1 fL 9.0 - 12.7 fL [facility] Platelets (Bld) [#/Vol] 194 10*3/uL 150 - 400 k/uL [facility] RBC (Bld) [#/Vol] 4.63 10*6/uL 4.20 - 6.00 m/uL [facility] WBC (Bld) [#/Vol] 5.43 10*3/uL 3.70 - 11.00 k/uL [facility] Basophils (Bld) [#/Vol] 0.06 10*3/uL Normal <0.11 [facility] Comment on above: Order Comment: Speci men Type: BLOOD SPECIMENOrdering Facility: [facility] Address: [address] [place] [address] Performed By: #### 5 7021-8 ####[facility] LABCLIA [id number] [place] [address] Basophils/100 WBC (Bld) 1.1 % Normal [facility] Comment on above: Order Comment: Speci men Type: BLOOD SPECIMENOrdering Facility: [facility] Address: [address] [place] [address] Performed By: #### 5 7021-8 ####[facility] LABCLIA [id number] [place] [address] Differential cell count method Nom (Bld) Auto Normal [facility] Comment on above: Order Comment: Speci men Type: BLOOD SPECIMENOrdering Facility: [facility] Address: [address] [place] [address] Performed By: #### 5 7021-8 ####[facility] LABCLIA [id number] [place] [address] Eosinophils (Bld) [#/Vol] 0.24 10*3/uL Normal <0.46 [facility] Comment on above: Order Comment: Speci men Type: BLOOD SPECIMENOrdering Facility: [facility] Address: [address] [place] [address] Performed By: #### 5 7021-8 ####[facility] LABCLIA [id number] [place] [address] Eosinophils/100 WBC (Bld) 4.4 % Normal [facility] Comment on above: Order Comment: Speci men Type: BLOOD SPECIMENOrdering Facility: [facility] Address: [address] [place] [address] Performed By: #### 5 7021-8 ####[facility] LABCLIA [id number] [place] [address] Erythrocyte distribution width (RBC) [Ratio] 14.6 % Normal 11.5-15.0 [facility] Comment on above: Order Comment: Speci men Type: BLOOD SPECIMENOrdering Facility: [facility] Address: [address] [place] [address] Performed By: #### 5 7021-8 ####[facility] LABCLIA [id number] [place] [address] Hematocrit (Bld) [Volume fraction] 40.7 % Normal 39.0-51.0 [facility] Comment on above: Order Comment: Speci men Type: BLOOD SPECIMENOrdering Facility: [facility] Address: [address] [place] [address] Performed By: #### 5 7021-8 ####[facility] LABCLIA [id number] [place] [address] Hemoglobin (Bld) [Mass/Vol] 14.1 g/dL Normal 13.0-17.0 [facility] Comment on above: Order Comment: Speci men Type: BLOOD SPECIMENOrdering Facility: [facility] Address: [address] [place] [address] Performed By: #### 5 7021-8 ####[facility] LABCLIA [id number] [place] [address] Immature granulocytes (Bld) [#/Vol] 0.07 10*3/uL Normal <0.10 [facility] Comment on above: Order Comment: Speci men Type: BLOOD SPECIMENOrdering Facility: [facility] Address: [address] [place] [address] Performed By: #### 5 7021-8 ####[facility] LABCLIA [id number] [place] [address] Immature granulocytes/100 WBC (Bld) 1.3 % Normal [facility] Comment on above: Order Comment: Speci men Type: BLOOD SPECIMENOrdering Facility: [facility] Address: [address] [place] [address] Performed By: #### 5 7021-8 ####[facility] LABCLIA [id number] [place] [address] Lymphocytes (Bld) [#/Vol] 0.80 10*3/uL Low 1.00-4.00 [facility] Comment on above: Order Comment: Speci men Type: BLOOD SPECIMENOrdering Facility: [facility] Address: [address] [place] [address] Performed By: #### 5 7021-8 ####[facility] LABCLIA [id number] [place] [address] Lymphocytes/100 WBC (Bld) 14.7 % Normal [facility] Comment on above: Order Comment: Speci men Type: BLOOD SPECIMENOrdering Facility: [facility] Address: [address] [place] [address] Performed By: #### 5 7021-8 ####[facility] LABCLIA [id number] [place] [address] MCH (RBC) [Entitic mass] 30.5 pg Normal 26.0-34.0 [facility] Comment on above: Order Comment: Speci men Type: BLOOD SPECIMENOrdering Facility: [facility] Address: [address] [place] [address] Performed By: #### 5 7021-8 ####[facility] LABCLIA [id number] [place] [address] MCHC (RBC) [Mass/Vol] 34.6 g/dL Normal 30.5-36.0 [facility] Comment on above: Order Comment: Speci men Type: BLOOD SPECIMENOrdering Facility: [facility] Address: [address] [place] [address] Performed By: #### 5 7021-8 ####[facility] LABCLIA [id number] [place] [address] MCV (RBC) [Entitic vol] 87.9 fL Normal 80.0-100.0 [facility] Comment on above: Order Comment: Speci men Type: BLOOD SPECIMENOrdering Facility: [facility] Address: [address] [place] [address] Performed By: #### 5 7021-8 ####[facility] LABCLIA [id number] [place] [address] Monocytes (Bld) [#/Vol] 1.18 10*3/uL High <0.87 [facility] Comment on above: Order Comment: Speci men Type: BLOOD SPECIMENOrdering Facility: [facility] Address: [address] [place] [address] Performed By: #### 5 7021-8 ####[facility] LABCLIA [id number] [place] [address] Monocytes/100 WBC (Bld) 21.7 % Normal [facility] Comment on above: Order Comment: Speci men Type: BLOOD SPECIMENOrdering Facility: [facility] Address: [address] [place] [address] Performed By: #### 5 7021-8 ####[facility] LABCLIA [id number] [place] [address] Neutrophils (Bld) [#/Vol] 3.08 10*3/uL Normal 1.45-7.50 [facility] Comment on above: Order Comment: Speci men Type: BLOOD SPECIMENOrdering Facility: [facility] Address: [address] [place] [address] Performed By: #### 5 7021-8 ####[facility] LABCLIA [id number] [place] [address] Neutrophils/100 WBC (Bld) 56.8 % Normal [facility] Comment on above: Order Comment: Speci men Type: BLOOD SPECIMENOrdering Facility: [facility] Address: [address] [place] [address] Performed By: #### 5 7021-8 ####[facility] LABCLIA [id number] [place] [address] Nucleated RBC (Bld) [#/Vol] 10*3/uL Normal <0.01 [facility] Comment on above: Order Comment: Speci men Type: BLOOD SPECIMENOrdering Facility: [facility] Address: [address] [place] [address] Performed By: #### 5 7021-8 ####[facility] LABCLIA [id number] [place] [address] Nucleated RBC/100 WBC (Bld) [Ratio] 0.0 /100 WBC Normal [facility] Comment on above: Order Comment: Speci men Type: BLOOD SPECIMENOrdering Facility: [facility] Address: [address] [place] [address] Performed By: #### 5 7021-8 ####[facility] LABCLIA [id number] [place] [address] Platelet mean volume (Bld) [Entitic vol] 9.1 fL Normal 9.0-12.7 [facility] Comment on above: Order Comment: Speci men Type: BLOOD SPECIMENOrdering Facility: [facility] Address: [address] [place] [address] Performed By: #### 5 7021-8 ####[facility] LABCLIA [id number] [place] [address] Platelets (Bld) [#/Vol] 194 10*3/uL Normal 150-400 [facility] Comment on above: Order Comment: Speci men Type: BLOOD SPECIMENOrdering Facility: [facility] Address: [address] [place] [address] Performed By: #### 5 7021-8 ####[facility] LABCLIA [id number] [place] [address] RBC (Bld) [#/Vol] 4.63 10*6/uL Normal 4.20-6.00 [facility] Comment on above: Order Comment: Speci men Type: BLOOD SPECIMENOrdering Facility: [facility] Address: [address] [place] [id number] Performed By: #### 5 7021-8 ####[facility] LABCLIA [id number] [place] [address] WBC (Bld) [#/Vol] 5.43 10*3/uL Normal 3.70-11.00 [facility] Comment on above: Order Comment: Speci men Type: BLOOD SPECIMENOrdering Facility: [facility] Address: [address] [place], [place] [id number] Performed By: #### 5 7021-8 ####[facility] LABCLIA [id number] [place] [address] CNOVSPon 09-30-2023 CNOVSP Normal [facility] metabolic 2000 panelon 09-30-2023 Albumin [Mass/Vol] 4.3 g/dL 3.9 - 4.9 g/dL [facility] ALP [Catalytic activity/Vol] 175 U/L High 38 - 113 U/L [facility] ALT [Catalytic activity/Vol] 18 U/L 10 - 54 U/L [facility] Anion gap [Moles/Vol] 11 mmol/L 9 - 18 mmol/L [facility] AST [Catalytic activity/Vol] 16 U/L 14 - 40 U/L [facility] Bilirubin [Mass/Vol] 0.2 mg/dL 0.2 - 1 .3 mg/dL [facility] Calcium [Mass/Vol] 9.5 mg/dL 8.5 - 10. 2 mg/dL [facility] Chloride [Moles/Vol] 104 mmol/L 97 - 10 5 mmol/L [facility] CO2 [Moles/Vol] 24 mmol/L 22 - 30 mmol/L [facility] Creatinine [Mass/Vol] 0.97 mg/dL 0.73 - 1.22 mg/dL [facility] Estimated Glomerular Filtration Rate 86 mL/min/1.73m >=60 mL/min/1.7 3m [facility] Glucose [Mass/Vol] 101 mg/dL High 74 - 99 mg/dL [facility] Potassium [Moles/Vol] 4.2 mmol/L 3.7 - 5.1 mmol/L [facility] Protein [Mass/Vol] 7.0 g/dL 6.3 - 8.0 g/dL [facility] Sodium [Moles/Vol] 139 mmol/L 136 - 144 mmol/L [facility] Urea nitrogen [Mass/Vol] 25 mg/dL High 9 - 24 mg/dL [facility] Albumin [Mass/Vol] 4.3 g/dL Normal 3.9-4.9 [facility] Comment on above: Order Comment: Speci men Type: BLOOD SPECIMENOrdering Facility: [facility] Address: [address] [place] [address] Performed By: #### 2 4323-8, 3083-11 ####[facility] LABCLIA [id number] [place] [address] ALP [Catalytic activity/Vol] 175 U/L High 38-113 [facility] Comment on above: Order Comment: Speci men Type: BLOOD SPECIMENOrdering Facility: [facility] Address: [address] [place] [address] Performed By: #### 2 4323-8, 3083- ####[facility] LABCLIA [id number] [place] [address] ALT [Catalytic activity/Vol] 18 U/L Normal 10-54 [facility] Comment on above: Order Comment: Speci men Type: BLOOD SPECIMENOrdering Facility: [facility] Address: [address] [place] [address] Performed By: #### 2 4323-8, 3083-11 ####[facility] LABCLIA [id number] [place] [address] Anion gap [Moles/Vol] 11 mmol/L Normal 9-18 [facility] Comment on above: Order Comment: Speci men Type: BLOOD SPECIMENOrdering Facility: [facility] Address: [address] [place] [address] Performed By: #### 2 4323-8, 308- ####[facility] LABCLIA [id number] [place] [address] AST [Catalytic activity/Vol] 16 U/L Normal 14-40 [facility] Comment on above: Order Comment: Speci men Type: BLOOD SPECIMENOrdering Facility: [facility] Address: [address] [place] [address] Performed By: #### 2 4323-8, 3083- ####[facility]DCA[facility] LABIA [id number] [place] [address] Bilirubin [Mass/Vol] 0.2 mg/dL Normal 0.2-1.3 [facility] Comment on above: Order Comment: Speci men Type: BLOOD SPECIMENOrdering Facility: [facility] Address: [address] [place] [address] Performed By: #### 2 4323-8, 3083- ####[facility] LABIA [id number] [place] [address] Calcium [Mass/Vol] 9.5 mg/dL Normal 8.5-10.2 [facility] Comment on above: Order Comment: Speci men Type: BLOOD SPECIMENOrdering Facility: [facility] Address: [address] [place] [id number] Performed By: #### 2 4323-8, 3083- ####[facility] LABIA [id number] [place] [address] Chloride [Moles/Vol] 104 mmol/L Normal 97-105 [facility] Comment on above: Order Comment: Speci men Type: BLOOD SPECIMENOrdering Facility: [facility] Address: [address] [place] [address] Performed By: #### 2 4323-8, 3083-11 ####[facility] LABCLIA [id number] [place] [address] CO2 [Moles/Vol] 24 mmol/L Normal 22-30 [facility] Comment on above: Order Comment: Speci men Type: BLOOD SPECIMENOrdering Facility: [facility] Address: [address] [place] [address] Performed By: #### 2 4323-8, 3083-11 ####[facility] LABCLIA [id number] [place] [address] Creatinine [Mass/Vol] 0.97 mg/dL Normal 0.73-1.22 [facility] Comment on above: Order Comment: Speci men Type: BLOOD SPECIMENOrdering Facility: [facility] Address: [address] [place] [address] Performed By: #### 2 4323-8, 3083-11 ####[facility] LABCLIA [id number] [place] [address] Creatinine and Glomerular filtration rate.predicted panel (S/P/Bld) 86 mL/min/1.73m??? Normal >=60 [facility] Comment on above: Order Comment: Speci men Type: BLOOD SPECIMENOrdering Facility: [facility] Address: [address] [place] [address] Result Comment: Carol mated Glomerular Filtration Rate [...] GFR. Performed By: #### 2 4323-8, 3083-11 ####[facility] LABCLIA [id number] [place] [address] Glucose [Mass/Vol] 101 mg/dL High 74-99 [facility] Comment on above: Order Comment: Speci men Type: BLOOD SPECIMENOrdering Facility: [facility] Address: [address] [place], [place] [id number] Result Comment: The [place] [employer] (ADA) provides guidance for cutoff [...] Standards of Medical Care in Diabetes 2016, [place] [employer]. Diabetes Care. 2016.39(Suppl 1). Performed By: #### 2 4323-8, 3083-11 ####[facility] LABCLIA [id number] [place] [address] Potassium [Moles/Vol] 4.2 mmol/L Normal 3.7-5.1 [facility] Comment on above: Order Comment: Speci men Type: BLOOD SPECIMENOrdering Facility: [facility] Address: [address] [place] [address] Performed By: #### 2 4323-8, 3083-11 ####[facility] LABCLIA [id number] [place] [address] Protein [Mass/Vol] 7.0 g/dL Normal 6.3-8.0 [facility] Comment on above: Order Comment: Speci men Type: BLOOD SPECIMENOrdering Facility: [facility] Address: [address] [place] [address] Performed By: #### 2 4323-8, 3083-11 ####[facility] LABCLIA [id number] [place] [address] Sodium [Moles/Vol] 139 mmol/L Normal 136-144 [facility] Comment on above: Order Comment: Speci men Type: BLOOD SPECIMENOrdering Facility: [facility] Address: [place] [address] Performed By: #### 2 4323-8, 3083-11 ####[facility] LABCLIA [id number] [place] [address] Urea nitrogen [Mass/Vol] 25 mg/dL High 9-24 [facility] Comment on above: Order Comment: Speci men Type: BLOOD SPECIMENOrdering Facility: [facility] Address: [address] [place] [id number] Performed By: #### 2 4323-8, 3083-11 ####[facility] LABCLIA [id number] [place] [address] URIC ACID BLOODon 09-30-2023 Urate [Mass/Vol] 7.2 mg/dL 4.0 - 8.1 mg/dL [facility] Urate SerPl-mCncon Urate [Mass/Vol] 7.2 mg/dL Normal 4.0-8.1 [facility] Comment on above: Order Comment: Speci men Type: BLOOD SPECIMENOrdering Facility: [facility] Address: [address] [place] [id number] Performed By: #### 2 4323-8, 3083-11 ####[facility] LABCLIA [id number] [place] [address] GLUCOSE, BLOOD (POC)on 09-23 Glucose [Mass/Vol] 90 mg/dL 74 - 99 mg/dL [facility] Comment on above: Location:[facility], [address] , [place], [place], [address] The Accu-Chek Inform II glucose meter has [...] blood gas instrument) in the above situations. [facility] NM PET/CT SKULL-THIGH SUBQon 09-23-2023 NM PET/CT SKULL-THIGH SUBQ Normal [facility] PET+CT Guidance for localiza tion of [...] any questions regarding this interpretation, please call [phone]. If you are unable to reach us at the number above, please feel free to contact [facility] eRadiology at [phone]. DIVISION OF RADIOLOGY * * *Final Report* [...] SKELETON: There are no hypermetabolic osseous lesions. Remote Sensing Scientist (topogram) images:No additional findings DIVISION OF RADIOLOGY Provider, [facility] - 09/23/2023 * * *Final Report* * [...] SKELETON: There are no hypermetabolic osseous lesions. Remote Sensing Scientist (topogram) images:No additional findings IMPRESSION IMPRESSION:Most of [...] any questions regarding this interpretation, please call [phone]. If you are unable to reach us at the number above, please feel free to contact [facility] eRadiology at [phone]. [facility] Radiology Study observation (narrative) [facility] PET+CT Guidance for localiza tion of tumor of Skull base to mid-thigh-- W [id number] IVOrdered By: Ccf Provider on 09-23-2023 [facility] Consultation Noteon 08-08-20 Consultation Note [id number] Normal [facility] CBC W Auto Differential pane l (Bld)on 08-05-2023 Basophils (Bld) [#/Vol] 0.08 10*3/uL <0.11 k/uL [facility] Basophils/100 WBC (Bld) 1.3 % [facility] Differential cell count method Nom (Bld) Auto [facility] Eosinophils (Bld) [#/Vol] 0.27 10*3/uL <0.46 k/uL [facility] Eosinophils/100 WBC (Bld) 4.4 % [facility] Erythrocyte distribution width (RBC) [Ratio] 16.2 % High 11.5 - 15.0 % [facility] Hematocrit (Bld) [Volume fraction] 41.6 % 39.0 - 51.0 % [facility] Hemoglobin (Bld) [Mass/Vol] 13.8 g/dL 13.0 - 17.0 g/dL [facility] Immature granulocytes (Bld) [#/Vol] 0.06 10*3/uL <0.10 k/uL [facility] Immature granulocytes/100 WBC (Bld) 1.0 % [facility] Lymphocytes (Bld) [#/Vol] 0.46 10*3/uL Low 1.00 - 4.00 k/uL [facility] Lymphocytes/100 WBC (Bld) 7.6 % [facility] MCH (RBC) [Entitic mass] 29.5 pg 26.0 - 34.0 pg [facility] MCHC (RBC) [Mass/Vol] 33.2 g/dL 30.5 - 36.0 g/dL [facility] MCV (RBC) [Entitic vol] 88.9 fL 80.0 - 100.0 fL [facility] Monocytes (Bld) [#/Vol] 1.03 10*3/uL High <0.87 k/uL [facility] Monocytes/100 WBC (Bld) 17.0 % [facility] Neutrophils (Bld) [#/Vol] 4.17 10*3/uL 1.45 - 7.50 k/uL [facility] Neutrophils/100 WBC (Bld) 68.7 % [facility] Nucleated RBC (Bld) [#/Vol] <0.01 k/uL [facility] Nucleated RBC/100 WBC (Bld) [Ratio] 0.0 /100 WBC [facility] Platelet mean volume (Bld) [Entitic vol] 10.3 fL 9.0 - 12.7 fL [facility] Platelets (Bld) [#/Vol] 143 10*3/uL Low 150 - 400 k/uL [facility] RBC (Bld) [#/Vol] 4.68 10*6/uL 4.20 - 6.00 m/uL [facility] WBC (Bld) [#/Vol] 6.07 10*3/uL 3.70 - 11.00 k/uL [facility] Comprehensive metabolic 2000 panelon 08-05-2023 Albumin [Mass/Vol] 4.2 g/dL 3.9 - 4.9 g/dL [facility] ALP [Catalytic activity/Vol] 198 U/L High 38 - 113 U/L [facility] ALT [Catalytic activity/Vol] 19 U/L 10 - 54 U/L [facility] Anion gap [Moles/Vol] 9 mmol/L 9 - 18 mmol/L [facility] AST [Catalytic activity/Vol] 18 U/L 14 - 40 U/L [facility] Bilirubin [Mass/Vol] 0.2 mg/dL 0.2 - 1 .3 mg/dL [facility] Calcium [Mass/Vol] 9.5 mg/dL 8.5 - 10. 2 mg/dL [facility] Chloride [Moles/Vol] 107 mmol/L High 97 - 10 5 mmol/L [facility] CO2 [Moles/Vol] 23 mmol/L 22 - 30 mmol/L [facility] Creatinine [Mass/Vol] 0.90 mg/dL 0.73 - 1.22 mg/dL [facility] Estimated Glomerular Filtration Rate 94 mL/min/1.73m >=60 mL/min/1.7 3m [facility] Glucose [Mass/Vol] 104 mg/dL High 74 - 99 mg/dL [facility] Potassium [Moles/Vol] 4.2 mmol/L 3.7 - 5.1 mmol/L [facility] Protein [Mass/Vol] 6.8 g/dL 6.3 - 8.0 g/dL [facility] Sodium [Moles/Vol] 139 mmol/L 136 - 144 mmol/L [facility] Urea nitrogen [Mass/Vol] 17 mg/dL 9 - 24 mg/dL [facility] Basic metabolic 2000 panelon 07-22-2023 Anion gap [Moles/Vol] 13 mmol/L 9 - 18 mmol/L [facility] Calcium [Mass/Vol] 9.7 mg/dL 8.5 - 10. 2 mg/dL [facility] Chloride [Moles/Vol] 105 mmol/L 97 - 10 5 mmol/L [facility] CO2 [Moles/Vol] 23 mmol/L 22 - 30 mmol/L [facility] Creatinine [Mass/Vol] 0.96 mg/dL 0.73 - 1.22 mg/dL [facility] Estimated Glomerular Filtration Rate 87 mL/min/1.73m >=60 mL/min/1.7 3m [facility] Glucose [Mass/Vol] 101 mg/dL High 74 - 99 mg/dL [facility] Potassium [Moles/Vol] 4.7 mmol/L 3.7 - 5.1 mmol/L [facility] Sodium [Moles/Vol] 141 mmol/L 136 - 144 mmol/L [facility] Urea nitrogen [Mass/Vol] 14 mg/dL 9 - 24 mg/dL [facility] CBC W Auto Differential pane l (Bld)on 07-22-2023 Basophils (Bld) [#/Vol] 0.07 10*3/uL <0.11 k/uL [facility] Basophils/100 WBC (Bld) 1.2 % [facility] Differential cell count method Nom (Bld) Auto [facility] Eosinophils (Bld) [#/Vol] 0.17 10*3/uL <0.46 k/uL [facility] Eosinophils/100 WBC (Bld) 3.0 % [facility] Erythrocyte distribution width (RBC) [Ratio] 16.1 % High 11.5 - 15.0 % [facility] Hematocrit (Bld) [Volume fraction] 46.9 % 39.0 - 51.0 % [facility] Hemoglobin (Bld) [Mass/Vol] 15.2 g/dL 13.0 - 17.0 g/dL [facility] Immature granulocytes (Bld) [#/Vol] 0.09 10*3/uL <0.10 k/uL [facility] Immature granulocytes/100 WBC (Bld) 1.6 % [facility] Lymphocytes (Bld) [#/Vol] 0.26 10*3/uL Low 1.00 - 4.00 k/uL [facility] Lymphocytes/100 WBC (Bld) 4.6 % [facility] MCH (RBC) [Entitic mass] 29.0 pg 26.0 - 34.0 pg [facility] MCHC (RBC) [Mass/Vol] 32.4 g/dL 30.5 - 36.0 g/dL [facility] MCV (RBC) [Entitic vol] 89.5 fL 80.0 - 100.0 fL [facility] Monocytes (Bld) [#/Vol] 1.09 10*3/uL High <0.87 k/uL [facility] Monocytes/100 WBC (Bld) 19.3 % [facility] Neutrophils (Bld) [#/Vol] 3.97 10*3/uL 1.45 - 7.50 k/uL [facility] Neutrophils/100 WBC (Bld) 70.3 % [facility] Nucleated RBC (Bld) [#/Vol] <0.01 k/uL [facility] Nucleated RBC/100 WBC (Bld) [Ratio] 0.0 /100 WBC [facility] Platelet mean volume (Bld) [Entitic vol] 10.0 fL 9.0 - 12.7 fL [facility] Platelets (Bld) [#/Vol] 242 10*3/uL 150 - 400 k/uL [facility] RBC (Bld) [#/Vol] 5.24 10*6/uL 4.20 - 6.00 m/uL [facility] WBC (Bld) [#/Vol] 5.65 10*3/uL 3.70 - 11.00 k/uL [facility] URIC ACID BLOODon 07-22-2023 Urate [Mass/Vol] 6.1 mg/dL 4.0 - 8.1 mg/dL [facility] CBC W Auto Differential pane l (Bld)on 07-08-2023 Basophils (Bld) [#/Vol] 0.06 10*3/uL <0.11 k/uL [facility] Basophils/100 WBC (Bld) 0.8 % [facility] Differential cell count method Nom (Bld) Auto [facility] Eosinophils (Bld) [#/Vol] 0.24 10*3/uL <0.46 k/uL [facility] Eosinophils/100 WBC (Bld) 3.1 % [facility] Erythrocyte distribution width (RBC) [Ratio] 15.9 % High 11.5 - 15.0 % [facility] Hematocrit (Bld) [Volume fraction] 41.1 % 39.0 - 51.0 % [facility] Hemoglobin (Bld) [Mass/Vol] 13.3 g/dL 13.0 - 17.0 g/dL [facility] Immature granulocytes (Bld) [#/Vol] 0.03 10*3/uL <0.10 k/uL [facility] Immature granulocytes/100 WBC (Bld) 0.4 % [facility] Lymphocytes (Bld) [#/Vol] 0.25 10*3/uL Low 1.00 - 4.00 k/uL [facility] Lymphocytes/100 WBC (Bld) 3.2 % [facility] MCH (RBC) [Entitic mass] 28.8 pg 26.0 - 34.0 pg [facility] MCHC (RBC) [Mass/Vol] 32.4 g/dL 30.5 - 36.0 g/dL [facility] MCV (RBC) [Entitic vol] 89.0 fL 80.0 - 100.0 fL [facility] Monocytes (Bld) [#/Vol] 0.52 10*3/uL <0.87 k/uL [facility] Monocytes/100 WBC (Bld) 6.6 % [facility] Neutrophils (Bld) [#/Vol] 6.73 10*3/uL 1.45 - 7.50 k/uL [facility] Neutrophils/100 WBC (Bld) 85.9 % [facility] Nucleated RBC (Bld) [#/Vol] <0.01 k/uL [facility] Nucleated RBC/100 WBC (Bld) [Ratio] 0.0 /100 WBC [facility] Platelet mean volume (Bld) [Entitic vol] 10.1 fL 9.0 - 12.7 fL [facility] Platelets (Bld) [#/Vol] 146 10*3/uL Low 150 - 400 k/uL [facility] RBC (Bld) [#/Vol] 4.62 10*6/uL 4.20 - 6.00 m/uL [facility] WBC (Bld) [#/Vol] 7.83 10*3/uL 3.70 - 11.00 k/uL [facility] Comprehensive metabolic 2000 panelon 07-08-2023 Albumin [Mass/Vol] 3.9 g/dL 3.9 - 4.9 g/dL [facility] ALP [Catalytic activity/Vol] 228 U/L High 38 - 113 U/L [facility] ALT [Catalytic activity/Vol] 19 U/L 10 - 54 U/L [facility] Anion gap [Moles/Vol] 11 mmol/L 9 - 18 mmol/L [facility] AST [Catalytic activity/Vol] 17 U/L 14 - 40 U/L [facility] Bilirubin [Mass/Vol] 0.3 mg/dL 0.2 - 1 .3 mg/dL [facility] Calcium [Mass/Vol] 9.3 mg/dL 8.5 - 10. 2 mg/dL [facility] Chloride [Moles/Vol] 102 mmol/L 97 - 10 5 mmol/L [facility] CO2 [Moles/Vol] 22 mmol/L 22 - 30 mmol/L [facility] Creatinine [Mass/Vol] 0.90 mg/dL 0.73 - 1.22 mg/dL [facility] Estimated Glomerular Filtration Rate 94 mL/min/1.73m >=60 mL/min/1.7 3m [facility] Glucose [Mass/Vol] 119 mg/dL High 74 - 99 mg/dL [facility] Potassium [Moles/Vol] 4.2 mmol/L 3.7 - 5.1 mmol/L [facility] Protein [Mass/Vol] 6.9 g/dL 6.3 - 8.0 g/dL [facility] Sodium [Moles/Vol] 135 mmol/L Low 136 - 144 mmol/L [facility] Urea nitrogen [Mass/Vol] 15 mg/dL 9 - 24 mg/dL [facility] Laboratory - Chemistry and C hemistry - challengeon 07-08-2023 Urate [Mass/Vol] 5.7 mg/dL 4.0 - 8.1 mg/dL [facility] Basic metabolic 2000 panelon 06-19-2023 Anion gap [Moles/Vol] 9 mmol/L 9 - 18 mmol/L [facility] Calcium [Mass/Vol] 9.0 mg/dL 8.5 - 10. 2 mg/dL [facility] Chloride [Moles/Vol] 102 mmol/L 97 - 10 5 mmol/L [facility] CO2 [Moles/Vol] 25 mmol/L 22 - 30 mmol/L [facility] Creatinine [Mass/Vol] 0.98 mg/dL 0.73 - 1.22 mg/dL [facility] Estimated Glomerular Filtration Rate 85 mL/min/1.73m >=60 mL/min/1.7 3m [facility] Glucose [Mass/Vol] 95 mg/dL 74 - 99 mg/dL [facility] Potassium [Moles/Vol] 4.1 mmol/L 3.7 - 5.1 mmol/L [facility] Sodium [Moles/Vol] 136 mmol/L 136 - 144 mmol/L [facility] Urea nitrogen [Mass/Vol] 19 mg/dL 9 - 24 mg/dL [facility] CBC W Auto Differential pane l (Bld)on 06-19-2023 Basophils (Bld) [#/Vol] 0.07 10*3/uL <0.11 k/uL [facility] Basophils/100 WBC (Bld) 0.7 % [facility] Differential cell count method Nom (Bld) Auto [facility] Eosinophils (Bld) [#/Vol] 0.39 10*3/uL <0.46 k/uL [facility] Eosinophils/100 WBC (Bld) 4.1 % [facility] Erythrocyte distribution width (RBC) [Ratio] 16.4 % High 11.5 - 15.0 % [facility] Hematocrit (Bld) [Volume fraction] 40.4 % 39.0 - 51.0 % [facility] Hemoglobin (Bld) [Mass/Vol] 13.2 g/dL 13.0 - 17.0 g/dL [facility] Immature granulocytes (Bld) [#/Vol] 0.09 10*3/uL <0.10 k/uL [facility] Immature granulocytes/100 WBC (Bld) 0.9 % [facility] Lymphocytes (Bld) [#/Vol] 0.15 10*3/uL Low 1.00 - 4.00 k/uL [facility] Lymphocytes/100 WBC (Bld) 1.6 % [facility] MCH (RBC) [Entitic mass] 29.8 pg 26.0 - 34.0 pg [facility] MCHC (RBC) [Mass/Vol] 32.7 g/dL 30.5 - 36.0 g/dL [facility] MCV (RBC) [Entitic vol] 91.2 fL 80.0 - 100.0 fL [facility] Monocytes (Bld) [#/Vol] 1.13 10*3/uL High <0.87 k/uL [facility] Monocytes/100 WBC (Bld) 11.9 % [facility] Neutrophils (Bld) [#/Vol] 7.70 10*3/uL High 1.45 - 7.50 k/uL [facility] Neutrophils/100 WBC (Bld) 80.8 % [facility] Nucleated RBC (Bld) [#/Vol] <0.01 k/uL [facility] Nucleated RBC/100 WBC (Bld) [Ratio] 0.0 /100 WBC [facility] Platelet mean volume (Bld) [Entitic vol] 9.5 fL 9.0 - 12.7 fL [facility] Platelets (Bld) [#/Vol] 217 10*3/uL 150 - 400 k/uL [facility] RBC (Bld) [#/Vol] 4.43 10*6/uL 4.20 - 6.00 m/uL [facility] WBC (Bld) [#/Vol] 9.53 10*3/uL 3.70 - 11.00 k/uL [facility] URIC ACID BLOODon 06-19-2023 Urate [Mass/Vol] 4.9 mg/dL 4.0 - 8.1 mg/dL [facility] CBC W Auto Differential pane l (Bld)on 06-05-2023 Basophils (Bld) [#/Vol] 0.04 10*3/uL <0.11 k/uL [facility] Basophils/100 WBC (Bld) 0.3 % [facility] Differential cell count method Nom (Bld) Auto [facility] Eosinophils (Bld) [#/Vol] <0.46 k/uL [facility] Eosinophils/100 WBC (Bld) 0.0 % [facility] Erythrocyte distribution width (RBC) [Ratio] 14.4 % 11.5 - 15.0 % [facility] Hematocrit (Bld) [Volume fraction] 37.1 % Low 39.0 - 51.0 % [facility] Hemoglobin (Bld) [Mass/Vol] 11.8 g/dL Low 13.0 - 17.0 g/dL [facility] Immature granulocytes (Bld) [#/Vol] 0.12 10*3/uL High <0.10 k/uL [facility] Immature granulocytes/100 WBC (Bld) 0.9 % [facility] Lymphocytes (Bld) [#/Vol] 0.56 10*3/uL Low 1.00 - 4.00 k/uL [facility] Lymphocytes/100 WBC (Bld) 4.0 % [facility] MCH (RBC) [Entitic mass] 28.4 pg 26.0 - 34.0 pg [facility] MCHC (RBC) [Mass/Vol] 31.8 g/dL 30.5 - 36.0 g/dL [facility] MCV (RBC) [Entitic vol] 89.4 fL 80.0 - 100.0 fL [facility] Monocytes (Bld) [#/Vol] 0.65 10*3/uL <0.87 k/uL [facility] Monocytes/100 WBC (Bld) 4.6 % [facility] Neutrophils (Bld) [#/Vol] 12.66 10*3/uL High 1.45 - 7.50 k/uL [facility] Neutrophils/100 WBC (Bld) 90.2 % [facility] Nucleated RBC (Bld) [#/Vol] <0.01 k/uL [facility] Nucleated RBC/100 WBC (Bld) [Ratio] 0.0 /100 WBC [facility] Platelet mean volume (Bld) [Entitic vol] 10.1 fL 9.0 - 12.7 fL [facility] Platelets (Bld) [#/Vol] 334 10*3/uL 150 - 400 k/uL [facility] RBC (Bld) [#/Vol] 4.15 10*6/uL Low 4.20 - 6.00 m/uL [facility] WBC (Bld) [#/Vol] 14.03 10*3/uL High 3.70 - 11.00 k/uL [facility] Comprehensive metabolic 2000 panelon 06-05-2023 Albumin [Mass/Vol] 3.7 g/dL Low 3.9 - 4.9 g/dL [facility] ALP [Catalytic activity/Vol] 235 U/L High 38 - 113 U/L [facility] ALT [Catalytic activity/Vol] 26 U/L 10 - 54 U/L [facility] Anion gap [Moles/Vol] 10 mmol/L 9 - 18 mmol/L [facility] AST [Catalytic activity/Vol] 27 U/L 14 - 40 U/L [facility] Bilirubin [Mass/Vol] 0.2 mg/dL 0.2 - 1 .3 mg/[facility] Calcium [Mass/Vol] 9.4 mg/dL 8.5 - 10. 2 mg/dL [facility] Chloride [Moles/Vol] 102 mmol/L 97 - 10 5 mmol/L [facility] CO2 [Moles/Vol] 25 mmol/L 22 - 30 mmol/L [facility] Creatinine [Mass/Vol] 0.96 mg/dL 0.73 - 1.22 mg/dL [facility] Estimated Glomerular Filtration Rate 87 mL/min/1.73m >=60 mL/min/1.7 3m [facility] Glucose [Mass/Vol] 120 mg/dL High 74 - 99 mg/dL [facility] Potassium [Moles/Vol] 4.3 mmol/L 3.7 - 5.1 mmol/L [facility] Protein [Mass/Vol] 7.7 g/dL 6.3 - 8.0 g/dL [facility] Sodium [Moles/Vol] 137 mmol/L 136 - 144 mmol/L [facility] Urea nitrogen [Mass/Vol] 26 mg/dL High 9 - 24 mg/dL [facility] Laboratory - Chemistry and C hemistry - challengeon 06-05-2023 Urate [Mass/Vol] 8.6 mg/dL High 4.0 - 8.1 mg/dL [facility] ESR Westergren method (Bld) [Velocity]on 05-14-2023 ESR (Bld) [Velocity] 40 mm/h High 0 - 15 mm/hr [facility] CBC W Auto Differential pane l (Bld)on 05-13-2023 Basophils (Bld) [#/Vol] 0.08 10*3/uL <0.11 k/uL [facility] Basophils/100 WBC (Bld) 0.8 % [facility] Differential cell count method Nom (Bld) Auto [facility] Eosinophils (Bld) [#/Vol] 0.27 10*3/uL <0.46 k/uL [facility] Eosinophils/100 WBC (Bld) 2.8 % [facility] Erythrocyte distribution width (RBC) [Ratio] 14.1 % 11.5 - 15.0 % [facility] Hematocrit (Bld) [Volume fraction] 42.3 % 39.0 - 51.0 % [facility] Hemoglobin (Bld) [Mass/Vol] 13.4 g/dL 13.0 - 17.0 g/dL [facility] Immature granulocytes (Bld) [#/Vol] 0.05 10*3/uL <0.10 k/uL [facility] Immature granulocytes/100 WBC (Bld) 0.5 % [facility] Lymphocytes (Bld) [#/Vol] 0.69 10*3/uL Low 1.00 - 4.00 k/uL [facility] Lymphocytes/100 WBC (Bld) 7.1 % [facility] MCH (RBC) [Entitic mass] 29.1 pg 26.0 - 34.0 pg [facility] MCHC (RBC) [Mass/Vol] 31.7 g/dL 30.5 - 36.0 g/dL [facility] MCV (RBC) [Entitic vol] 92.0 fL 80.0 - 100.0 fL [facility] Monocytes (Bld) [#/Vol] 1.11 10*3/uL High <0.87 k/uL [facility] Monocytes/100 WBC (Bld) 11.5 % [facility] Neutrophils (Bld) [#/Vol] 7.47 10*3/uL 1.45 - 7.50 k/uL [facility] Neutrophils/100 WBC (Bld) 77.3 % [facility] Nucleated RBC (Bld) [#/Vol] <0.01 k/uL [facility] Nucleated RBC/100 WBC (Bld) [Ratio] 0.0 /100 WBC [facility] Platelet mean volume (Bld) [Entitic vol] 9.7 fL 9.0 - 12.7 fL [facility] Platelets (Bld) [#/Vol] 306 10*3/uL 150 - 400 k/uL [facility] RBC (Bld) [#/Vol] 4.60 10*6/uL 4.20 - 6.00 m/uL [facility] WBC (Bld) [#/Vol] 9.67 10*3/uL 3.70 - 11.00 k/uL [facility] Comprehensive metabolic 2000 panelon 05-13-2023 Albumin [Mass/Vol] 3.9 g/dL 3.9 - 4.9 g/dL [facility] ALP [Catalytic activity/Vol] 244 U/L High 38 - 113 U/L [facility] ALT [Catalytic activity/Vol] 19 U/L 10 - 54 U/L [facility] Anion gap [Moles/Vol] 12 mmol/L 9 - 18 mmol/L [facility] AST [Catalytic activity/Vol] 22 U/L 14 - 40 U/L [facility] Bilirubin [Mass/Vol] 0.4 mg/dL 0.2 - 1 .3 mg/dL [facility] Calcium [Mass/Vol] 9.5 mg/dL 8.5 - 10. 2 mg/dL [facility] Chloride [Moles/Vol] 103 mmol/L 97 - 10 5 mmol/L [facility] CO2 [Moles/Vol] 24 mmol/L 22 - 30 mmol/L [facility] Creatinine [Mass/Vol] 0.89 mg/dL 0.73 - 1.22 mg/dL [facility] Estimated Glomerular Filtration Rate 95 mL/min/1.73m >=60 mL/min/1.7 3m [facility] Glucose [Mass/Vol] 96 mg/dL 74 - 99 mg/dL [facility] Potassium [Moles/Vol] 4.4 mmol/L 3.7 - 5.1 mmol/L [facility] Protein [Mass/Vol] 7.9 g/dL 6.3 - 8.0 g/dL [facility] Sodium [Moles/Vol] 139 mmol/L 136 - 144 mmol/L [facility] Urea nitrogen [Mass/Vol] 19 mg/dL 9 - 24 mg/dL [facility] LD LACTATE DEHYDROon 023 LDH [Catalytic activity/Vol] 420 U/L High 135 - 225 U/L [facility] CBC with Auto Differentialon 04-02-2023 Basophils (Bld) [#/Vol] 0.08 10*3/uL [facility] Basophils/100 WBC (Bld) 1 % 0 - 2 % [facility] Eosinophils (Bld) [#/Vol] 0.23 10*3/uL [facility] Eosinophils/100 WBC (Bld) 2 % 1 - 4 % [facility] Erythrocyte distribution width (RBC) [Ratio] 13.5 % 11.8 - 14.4 % [facility] Hematocrit (Bld) [Volume fraction] 42.8 % 40.7 - 50.3 % [facility] Hemoglobin (Bld) [Mass/Vol] 14.3 g/dL 13.0 - 17.0 g/dL [facility] Immature granulocytes (Bld) [#/Vol] 0.04 10*3/uL [facility] Immature granulocytes/100 WBC (Bld) 0 % 0 [facility] Interpretation and review of laboratory results Abnormal [facility] Lymphocytes/100 WBC (Bld) 6 % Low 24 - 43 % [facility] Lymphocytes/100 WBC (Bld) 0.65 % Low [facility] MCH (RBC) [Entitic mass] 30.6 pg 25.2 - 33.5 pg [facility] MCHC (RBC) [Mass/Vol] 33.4 g/dL 28.4 - 34.8 g/dL [facility] MCV (RBC) [Entitic vol] 91.5 fL 82.6 - 102.9 fL [facility] Monocytes/100 WBC (Bld) 12 % 3 - 12 % [facility] Monocytes/100 WBC (Bld) 1.32 % High [facility] Neutrophils/100 WBC (Bld) 79 % High 36 - 65 % [facility] NRBC Automated 0.0 0.0 per 100 WBC [facility] Platelet mean volume (Bld) [Entitic vol] 10.2 fL 8.1 - 13.5 fL [facility] Platelets (Bld) [#/Vol] 195 10*3/uL [facility] RBC (Bld) [#/Vol] 4.68 10*6/uL 4.21 - 5.77 m/uL [facility] Segmented neutrophils/100 WBC (Bld) 8.84 % High [facility] WBC other (Bld) [#/Vol] 11.2 [facility] CBC with Diffon 04-02-2023 Abs. Basophil 0.08 k/uL Normal 0.00-0.20 [facility] Comment on above: Performed By: #### C P, CDP #### [facility] [address] [place] [address] [employer]: Rasta Mohr MD Abs.Imm.Granulocyte 0.04 k/uL Normal 0.00-0.30 [facility] Comment on above: Performed By: #### C P, CDP #### [facility] [address] [place] [address] [employer]: Rasta Mohr MD Abs.Neutrophil (Seg) 8.84 k/uL High 1.50-8.10 [facility] Comment on above: Performed By: #### C P, CDP #### [address] [place], [place] [address] Senior [employer]: Rasta Mohr MD Basophils/100 WBC (Bld) 1 % Normal 0-2 [facility] Comment on above: Performed By: #### C P, CDP #### [address] [place], [place] [address] [employer]: Rasta Mohr MD Eosinophils (Bld) [#/Vol] 0.23 10*3/uL Normal 0.00-0.44 [facility] Comment on above: Performed By: #### C P, CDP #### [address] [place], [facility] Senior [employer]: Rasta Mohr MD Eosinophils/100 WBC (Bld) 2 % Normal 1-4 [facility] Comment on above: Performed By: #### C P, CDP #### [address] [place], [place] [address] [employer]: Rasta Mohr MD Erythrocyte distribution width (RBC) [Ratio] 13.5 % Normal 11.8-14.4 [facility] Comment on above: Performed By: #### C P, CDP #### [address] [place], [place] [address] [employer]: Rasta Mohr MD Hematocrit (Bld) [Volume fraction] 42.8 % Normal 40.7-50.3 [facility] Comment on above: Performed By: #### C P, CDP #### [address] [place], [facility] [employer]: Rasta Mohr MD Hemoglobin (Bld) [Mass/Vol] 14.3 g/dL Normal 13.0-17.0 [facility] Comment on above: Performed By: #### C P, CDP #### [facility] [address] [place], [place] [id number] [employer]: Rasta Mohr MD Immature granulocytes/100 WBC (Bld) 0 % Normal 0 [facility] Comment on above: Performed By: #### C P, CDP #### [facility] [address] [place], [facility] [employer]: Rasta Mohr MD Lymphocytes (Bld) [#/Vol] 0.65 10*3/uL Low 1.10-3.70 [facility] Comment on above: Performed By: #### C P, CDP #### [address] [place], [facility] [employer]: Rasta Mohr MD Lymphocytes/100 WBC (Bld) 6 % Low 24-43 [facility] Comment on above: Performed By: #### C P, CDP #### [facility] [address] [place] [address] [place], [facility] [employer]: Rasta Mohr MD MCH (RBC) [Entitic mass] 30.6 pg Normal 25.2-33.5 [facility] Comment on above: Performed By: #### C P, CDP #### [address] [place], [facility] Senior [employer]: Rasta Mohr MD MCHC (RBC) [Mass/Vol] 33.4 g/dL Normal 28.4-34.8 [facility] Comment on above: Performed By: #### C P, CDP #### [address] [place], [facility] Senior [employer]: Rasta Mohr MD MCV (RBC) [Entitic vol] 91.5 fL Normal 82.6-102.9 [facility] Comment on above: Performed By: #### C P, CDP #### [facility] [address] [place] [address] [place], [place] [id number] Senior [employer]: Rasta Mohr MD Monocytes (Bld) [#/Vol] 1.32 10*3/uL High 0.10-1.20 [facility] Comment on above: Performed By: #### C P, CDP #### [facility] [address] [place], [place] [id number] Senior [employer]: Rasta Mohr MD Monocytes/100 WBC (Bld) 12 % Normal 3-12 [facility] Comment on above: Performed By: #### C P, CDP #### [address] [place], [place] [address] Senior [employer]: Rasta Mohr MD Neutrophil (Seg) 79 % High 36-65 [facility] Comment on above: Performed By: #### C P, CDP #### [address] [place], [facility] Senior [employer]: Rasta Mohr MD NRBC Automated 0.0 per 100 WBC Normal 0.0 [facility] Comment on above: Performed By: #### C P, CDP #### [address] [place], [facility] Senior [employer]: Rasta Mohr MD Platelet mean volume (Bld) [Entitic vol] 10.2 fL Normal 8.1-13.5 [facility] Comment on above: Performed By: #### C P, CDP #### [address] [place], [facility] Senior [employer]: Rasta Mohr MD Platelets (Bld) [#/Vol] 195 10*3/uL Normal 138-453 [facility] Comment on above: Performed By: #### C P, CDP #### [address] [place], [place] [id number] Senior [employer]: Rasta Mohr MD RBC (Bld) [#/Vol] 4.68 10*6/uL Normal 4.21-5.77 [facility] Comment on above: Performed By: #### C P, CDP #### [facility] [address] [place] [address] Senior Project Manager [employer]: Rasta Mohr MD WBC (Bld) [#/Vol] 11.2 10*3/uL Normal 3.5-11.3 [facility] Comment on above: Performed By: #### C P, CDP #### [facility] [address] [place] [address] Senior Project Manager [employer]: Rasta Mohr MD Comp Metabolic Profon 2022 Albumin [Mass/Vol] 3.9 g/dL Normal 3.5-5.2 [facility] Comment on above: Performed By: #### C P, CDP #### [address] [place], [place] [id number] Senior Project Manager [employer]: Rasta Mohr MD Albumin/Glob Ratio 0.9 Low 1.0-2.5 [facility] Comment on above: Performed By: #### C P, CDP #### [address] [place] [address] Senior Project Manager [employer]: Rasta Mohr MD Alkaline Phos 201 U/L High 40-129 [facility] Comment on above: Performed By: #### C P, CDP #### [address] [place], [place] [id number] Senior [employer]: Rasta Mohr MD ALT [Catalytic activity/Vol] 15 U/L Normal 5-41 [facility] Comment on above: Performed By: #### C P, CDP #### [address] [place] [address] Senior Project Manager [employer]: Rasta Mohr MD Anion gap [Moles/Vol] 11 mmol/L Normal 9-17 [facility] Comment on above: Performed By: #### C P, CDP #### [facility] [address] [place], [place] [phone] Senior [employer]: Rasta Mohr MD AST [Catalytic activity/Vol] 19 U/L Normal <40 [facility] Comment on above: Performed By: #### C P, CDP #### [facility] [address] [place], [place] [id number] Senior [employer]: Rasta Mohr MD Bilirubin [Mass/Vol] 0.4 mg/dL Normal 0.3-1.2 [facility] Comment on above: Performed By: #### C P, CDP #### [facility] [address] [place], [place] [id number] Senior Project Manager [employer]: Rasta Mohr MD BUN/CRE Ratio 20 Normal 9-20 [facility] Comment on above: Performed By: #### C P, CDP #### [facility] [address] [place], [place] [id number] Senior Project [employer]: Rasta Mohr MD Calcium [Mass/Vol] 9.4 mg/dL Normal 8.6-10.4 [facility] Comment on above: Performed By: #### C P, CDP #### [address] [place], [place] [address]83 Senior Project Manager [employer]: Rasta Mohr MD Chloride [Moles/Vol] 102 mmol/L Normal 98-107 [facility] Comment on above: Performed By: #### C P, CDP #### [facility] [address] [place], [place] [id number] Senior Project Manager [employer]: Rasta Mohr MD CO2 [Moles/Vol] 25 mmol/L Normal 20-31 [facility] Comment on above: Performed By: #### C P, CDP #### [facility] [address] [place], [place] [id number] Senior Project Manager [employer]: Rasta Mohr MD Creatinine [Mass/Vol] 0.84 mg/dL Normal 0.70-1.20 [facility] Comment on above: Performed By: #### C P, CDP #### [address] [place] [address] Senior Project Manager [employer]: Rasta Mohr MD GFR/1.73 sq M.predicted among non-blacks MDRD (S/P/Bld) [Vol rate/Area] mL/min/{1.73_m2} Normal >60 [facility] Comment on above: Result Comment: These [...] #### C P, CDP #### [facility] [address] [place] [address] [place] [address] Senior Project Manager [employer]: Rasta Mohr MD Glucose [Mass/Vol] 101 mg/dL High 70-99 [facility] Comment on above: Performed By: #### C P, CDP #### [address] [place] [address] Senior Project Manager [employer]: Rasta Mohr MD Potassium [Moles/Vol] 4.3 mmol/L Normal 3.7-5.3 [facility] Comment on above: Performed By: #### C P, CDP #### [address] [place] [address] Senior Project Manager [employer]: Rasta Mohr MD Protein [Mass/Vol] 8.1 g/dL Normal 6.4-8.3 [facility] Comment on above: Performed By: #### C P, CDP #### [address] [place] [address] Senior Project Manager [employer]: Rasta Mohr MD Sodium [Moles/Vol] 138 mmol/L Normal 135-144 [facility] Comment on above: Performed By: #### C P, CDP #### [facility] [address] [place] [address] Senior Project Manager [employer]: Rasta Mohr MD Urea nitrogen [Mass/Vol] 17 mg/dL Normal 8-23 [facility] Comment on above: Performed By: #### C P, CDP #### [facility] [address] [place] [address] Senior Project Manager [employer]: Rasta Mohr MD Comprehensive Metabolic Pane [facility] 04-02-2023 Albumin [Mass/Vol] 3.9 g/dL 3.5 - 5.2 g/dL [facility] Albumin/Globulin [Mass ratio] 0.9 {ratio} Low 1.0 - 2.5 [facility] ALP [Catalytic activity/Vol] 201 U/L High 40 - 129 U/L [facility] ALT [Catalytic activity/Vol] 15 U/L 5 - 41 U/L [facility] Anion gap [Moles/Vol] 11 mmol/L 9 - 17 mmol/L [facility] AST [Catalytic activity/Vol] 19 U/L NINF - 40 U/L [facility] Bilirubin [Mass/Vol] 0.4 mg/dL 0.3 - 1 .2 mg/dL [facility] Calcium [Mass/Vol] 9.4 mg/dL 8.6 - 10. 4 mg/dL [facility] Chloride [Moles/Vol] 102 mmol/L 98 - 10 7 mmol/L [facility] CO2 [Moles/Vol] 25 mmol/L 20 - 31 mmol/L [facility] Creatinine [Mass/Vol] 0.84 mg/dL 0.70 - 1.20 mg/dL [facility] GFR/1.73 sq M.predicted MDRD (S/P/Bld) [Vol rate/Area] - PINF [facility] Comment on above: These results [...] mg/dL High 70 - 99 mg/dL [facility] Interpretation and review of laboratory results Abnormal [facility] [facility] Potassium [Moles/Vol] 4.3 mmol/L 3.7 - 5.3 mmol/L [facility] Protein [Mass/Vol] 8.1 g/dL 6.4 - 8.3 g/dL [facility] Sodium [Moles/Vol] 138 mmol/L 135 - 144 mmol/L [facility] Urea nitrogen [Mass/Vol] 17 mg/dL 8 - 23 mg/dL [facility] Urea nitrogen/Creatinine [Mass ratio] 20 mg/mg 9 - 20 [facility] TSHon 04-02-2023 TSH [Mass/Vol] 0.52 [facility] Thyroid Stim. Horm.on 2022 Thyroid Stim. Horm. 0.52 uIU/mL Normal 0.30-5.00 [facility] Comment on above: Performed By: #### T SH #### [facility] [address] [place] [address] Senior Project Manager Engineering: Rasta Mohr MD CBC Auto DifferentialOrdered By: Maritza Mendoza on 04-05-2021 Absolute Eos # 0.24 [facility] [place] [employer] Phone: Absolute Immature [facility]ulocyte 0.03 [facility]: [facility] Lymph # 1.16 [facility]: Absolute Zapata # 0.79 [facility]: Basophils (Bld) [#/Vol] 0.05 10*3/uL [facility]: Basophils/100 WBC (Bld) 1 % 0 - 2 % [employer] Phone: Differential Type NOT REPORTED [employer] Phone: Eosinophils/100 WBC (Bld) 4 % 1 - 4 % [employer] Phone: Hematocrit (Bld) [Volume fraction] 47.7 % 40.7 - 50.3 % [employer] Phone: Hemoglobin.gastrointe stinal spec 1 Ql (Stl) 15.6 g/dL 13.0 - 17.0 g/dL [employer] Phone: Immature granulocytes/100 WBC (Bld) 1 % High 0 [employer] Phone: Interpretation and review of laboratory results Abnormal [employer] Phone: Lymphocytes/100 WBC (Bld) 18 % Low 24 - 43 % [employer] Phone: MCH (RBC) [Entitic mass] 31.0 pg 25.2 - 33.5 pg [employer] Phone: MCHC (RBC) [Mass/Vol] 32.7 g/dL 28.4 - 34.8 g/dL [employer] Phone: MCV (RBC) [Entitic vol] 94.6 fL 82.6 - 102.9 fL [employer] Phone: Monocytes/100 WBC (Bld) 12 % 3 - 12 % [employer] Phone: NRBC Automated 0.0 0.0 per 100 WBC [employer] Phone: Platelet distribution width (Bld) [Ratio] 13.2 % 11.8 - 14.4 % [employer] Phone: Platelet Estimate NOT REPORTED [employer] Phone: Platelet mean volume (Bld) [Entitic vol] 10.1 fL 8.1 - 13.5 fL [employer] Phone: Platelets (Bld) [#/Vol] 193 10*3/uL [employer] Phone: RBC (Bld) [#/Vol] 5.04 10*6/uL 4.21 - 5.77 m/uL [employer] Phone: RBC (Bld) [#/Vol] NOT REPORTED [employer] Phone: Segmented neutrophils/100 WBC (Bld) 64 % 36 - 65 % [employer] Phone: Segs Absolute 4.19 [employer] Phone: WBC (Bld) [#/Vol] 6.5 10*3/uL [employer] Phone: WBC (Bld) [#/Vol] NOT REPORTED [employer] Phone: [employer] Phone: Comprehensive Metabolic Pane lOrdered By: Maritza Mendoza on 04-05-2021 Albumin [Mass/Vol] 4.2 g/dL 3.5 - 5.2 g/dL [employer] Phone: Albumin/Globulin [Mass ratio] 1.0 {ratio} [employer] Phone: ALP (Bld) [Catalytic activity/Vol] 187 U/L High 40 - 129 U/L [employer] Phone: ALT [Catalytic activity/Vol] 23 U/L 5 - 41 U/L [employer] Phone: Anion gap [Moles/Vol] 10 mmol/L 9 - 17 mmol/L [employer] Phone: AST [Catalytic activity/Vol] 21 U/L <40 [employer] Phone: Bilirubin [Mass/Vol] 0.34 mg/dL 0.3 - 1 .2 mg/dL [employer] Phone: Calcium [Mass/Vol] 9.5 mg/dL 8.6 - 10. 4 mg/dL [employer] Phone: Chloride [Moles/Vol] 102 mmol/L 98 - 10 7 mmol/L [employer] Phone: CO2 [Moles/Vol] 26 mmol/L 20 - 31 mmol/L [employer] Phone: Creatinine [Mass/Vol] 0.82 mg/dL 0.70 - 1.20 mg/dL [employer] Phone: Free PSA/Total PSA [Mass fraction] 8.3 g/dL 6.4 - 8.3 g/dL [employer] Phone: GFR >60 >60 mL/min [employer] Phone: GFR Non- >60 >60 mL/min [employer] Phone: Glucose [Mass/Vol] 97 mg/dL 70 - 99 mg/dL [employer] Phone: Interpretation and review of laboratory results Abnormal [employer] Phone: Potassium [Moles/Vol] 4.2 mmol/L 3.7 - 5.3 mmol/L [employer] Phone: Sodium [Moles/Vol] 138 mmol/L 135 - 144 mmol/L [employer] Phone: Urea nitrogen (BldV) [Mass/Vol] 16 mg/dL 8 - 23 mg/dL [employer] Phone: Urea nitrogen/Creatinine (Bld) [Mass ratio] 20 [employer] Phone: Laboratory - Chemistry and C hemistry - challengeOrdered By: Maritza Mendoza on 04-05-2021 GFR/1.73 sq M.predicted MDRD (S/P/Bld) [Vol rate/Area] [employer] Phone: Comment on above: Average GFR for 60-6 9 years old: 85 mL/min/1.73sq m Chronic Kidney Disease: <60 mL/min/1.73sq m Kidney failure: <15 mL/min/1.73sq m eGFR calculated using average adult body mass. Additional eGFR calculator available at: http://www.[employer]/multiple_crcl_2012.htm Stage 1: Some kidney damage normal GFR Stage 2: Mild kidney damage GFR 60-89 Stage 3: Moderate kidney damage GFR 30-59 Stage 4: Severe kidney damage GFR 15-29 Stage 5: Severe kidney damage GFR <15 ESRD - chronic treatment by dialysis or transplant Lactate DehydrogenaseOrdered By: Maritza Mendoza on 04-05-2021 LD 163 U/L 135 - 225 U/L [employer] Phone: No Panel InformationOrdered By: Maritza Mendoza on 04-05-2021 [employer] Phone: TSH without ReflexOrdered By : Maritza Mendoza on 04-05-2021 Interpretation and review of laboratory results Abnormal [employer] Phone: TSH Qn 0.19 m[IU]/L Low [employer] Phone: [employer] Phone: CBC Auto Differentialon 04-03 Basophils (Bld) [#/Vol] 0.07 10*3/uL [facility] [place] Basophils/100 WBC (Bld) 1 % 0 - 2 % [facility] [place], [place] Differential Type NOT REPORTED [facility] [place] [facility] [place] Eosinophils (Bld) [#/Vol] 0.24 10*3/uL [place] Eosinophils/100 WBC (Bld) 4 % 1 - 4 % [facility] [place] Erythrocyte distribution width (RBC) [Ratio] 13.5 % 11.8 - 14.4 % [place] Hematocrit (Bld) [Volume fraction] 48.7 % 40.7 - 50.3 % [place] Hemoglobin (Bld) [Mass/Vol] 15.9 g/dL 13 - 17 g/dL [place] Immature granulocytes (Bld) [#/Vol] 10*3/uL [place] Immature granulocytes (Bld) [#/Vol] 0 % 0 [place] Interpretation and review of laboratory results Abnormal [place] Lymphocytes (Bld) [#/Vol] 1.28 10*3/uL [place] Lymphocytes/100 WBC (Bld) 19 % Low 24 - 43 % [place] MCH (RBC) [Entitic mass] 30.7 pg 25.2 - 33.5 pg [place] MCHC (RBC) [Mass/Vol] 32.6 g/dL 28.4 - 34.8 g/dL [place] MCV (RBC) [Entitic vol] 94.0 fL 82.6 - 102.9 fL [place] Monocytes (Bld) [#/Vol] 0.98 10*3/uL [place] Monocytes/100 WBC (Bld) 15 % High 3 - 12 % [place] Platelet mean volume (Bld) [Entitic vol] 10.3 fL 8.1 - 13.5 fL [place] Platelets (Bld) [#/Vol] NOT REPORTED [place] Platelets (Bld) [#/Vol] 209 10*3/uL [place] RBC (Bld) [#/Vol] 5.18 10*6/uL 4.21 - 5.77 m/uL [place] RBC morphology finding Nom (Bld) NOT REPORTED [place] Segmented neutrophils/100 WBC (Bld) 61 % 36 - 65 % [place] Segs Absolute 4.13 [place] WBC (Bld) [#/Vol] 0.0 10*3/uL 0.0 per 100 WBC [place] WBC (Bld) [#/Vol] 6.7 10*3/uL [place] WBC Morphology NOT REPORTED [place] Comprehensive Metabolic Pane cheng 04-17-2020 Albumin [Mass/Vol] 4.2 g/dL 3.5 - 5.2 g/dL [place] Albumin/Globulin [Mass ratio] 1.1 {ratio} [place] ALP [Catalytic activity/Vol] 161 U/L High 40 - 129 U/L [place] ALT [Catalytic activity/Vol] 24 U/L 5 - 41 U/L [place] Anion gap [Moles/Vol] 13 mmol/L 9 - 17 mmol/L [place] AST [Catalytic activity/Vol] 19 U/L <40 [place] Bilirubin Ql (U) 0.27 mg/dL Low 0.3 - 1.2 mg/dL [place] Bun/Cre Ratio 12 [place] Calcium [Mass/Vol] 9.4 mg/dL 8.6 - 10. 4 mg/dL [place] Chloride [Moles/Vol] 103 mmol/L 98 - 10 7 mmol/L [place] CO2 [Moles/Vol] 24 mmol/L 20 - 31 mmol/L [place] Creatinine [Mass/Vol] 0.81 mg/dL 0.7 - 1.2 mg/dL [place] GFR >60 >60 mL/min [place] GFR Non- >60 >60 mL/min [place] Glucose [Mass/Vol] 104 mg/dL High 70 - 99 mg/dL [place] Interpretation and review of laboratory results Abnormal [place] Potassium [Moles/Vol] 4.2 mmol/L 3.7 - 5.3 mmol/L [place] Protein [Mass/Vol] 8.0 g/dL 6.4 - 8.3 g/dL [place] Sodium [Moles/Vol] 140 mmol/L 135 - 144 mmol/L [place] Urea nitrogen [Mass/Vol] 10 mg/dL 8 - 23 mg/dL [place] Lactate Dehydrogenaseon 04-03 LD 181 U/L 135 - 225 U/L [place] Metabolic Panelon 04-17-2020 GFR/1.73 sq M predicted among non-blacks MDRD (S/P/Bld) [Vol rate/Area] [place] Comment on above: Stage 1: Some [...] body mass. Additional eGFR calculator available at: http://www.[employer]/multiple_crcl_2012.htm Vital Signs Date Time Vital Sign Value Performing Clinician Facility 07-19-2024 09:33-0400 Body mass index (BMI) [Ratio] 25.83 kg/m2 Michael Boykin MD Work Phone: [facility] 07-19-2024 09:33-0400 Body temperature 97.5 [degF] Michael Boykin MD Work Phone: [facility] 07-19-2024 09:33-0400 Body weight 83.7 kg Michael Boykin MD Work Phone: [facility] 07-19-2024 09:33-0400 Diastolic blood pressure 86 mm[Hg] Michael Boykin MD Work Phone: [facility] 07-19-2024 09:33-0400 Heart rate 79 /min Michael Boykin MD Work Phone: [facility] 07-19-2024 09:33-0400 Respiratory rate 16 /min Michael Boykin MD Work Phone: [facility] 07-19-2024 09:33-0400 SaO2% (BldA) [Mass fraction] 97 % Michael Boykin MD Work Phone: [facility] 07-19-2024 09:33-0400 Systolic blood pressure 135 mm[Hg] Michael Boykin MD Work Phone: [facility] 06-17-2024 15:17-0400 Body mass index (BMI) [Ratio] 25.74 kg/m2 Michael Boykin MD Work Phone: [facility] 06-17-2024 15:17-0400 Body temperature 97.11 [degF] Michael Boykin MD Work Phone: [facility] 06-17-2024 15:17-0400 Body weight 83.4 kg Michael Boykin MD Work Phone: [facility] 06-17-2024 15:17-0400 Diastolic blood pressure 80 mm[Hg] Michael Boykin MD Work Phone: [facility] 06-17-2024 15:17-0400 Heart rate 79 /min Michael Boykin MD Work Phone: [facility] 06-17-2024 15:17-0400 Respiratory rate 18 /min Michael Boykin MD Work Phone: [facility] 06-17-2024 15:17-0400 SaO2% (BldA) [Mass fraction] 100 % Michael Boykin MD Work Phone: [facility] 06-17-2024 15:17-0400 Systolic blood pressure 124 mm[Hg] Michael Boykin MD Work Phone: [facility] 06-08-2024 13:49-0400 Blood Pressure Location Chiquita RIVERA [facility] 06-08-2024 13:49-0400 Diastolic blood pressure 80 mm[Hg] Chiquita RIVERA [facility] 06-08-2024 13:49-0400 Heart rate 72 /min Chiquita RIVERA [facility] 06-08-2024 13:49-0400 Respiratory rate 16 /min Chiquita RIVERA [facility] 06-08-2024 13:49-0400 Systolic blood pressure 122 mm[Hg] Chiquita RIVERA [facility] 05-13-2024 11:11-0400 Body mass index (BMI) [Ratio] 25.28 kg/m2 Niesha Galdamez MD Work Phone: [facility] 05-13-2024 11:11-0400 Body temperature 97.7 [degF] Niesha Galdamez MD Work Phone: [facility] 05-13-2024 11:11-0400 Body weight 81.9 kg Niesha Galdamez MD Work Phone: [facility] Comment on above: shoes on 05-13-2024 11:11-0400 Diastolic blood pressure 72 mm[Hg] Niesha Galdamez MD Work Phone: [facility] 05-13-2024 11:11-0400 Heart rate 72 /min Niesha Galdamez MD Work Phone: [facility] 05-13-2024 11:11-0400 Respiratory rate 18 /min Niesha Galdamez MD Work Phone: [facility] 05-13-2024 11:11-0400 SaO2% (BldA) [Mass fraction] 99 % Niesha Galdamez MD Work Phone: [facility] 05-13-2024 11:11-0400 Systolic blood pressure 135 mm[Hg] Niesha Galdamez MD Work Phone: [facility] 05-13-2024 09:04-0400 Body mass index (BMI) [Ratio] 24.92 kg/m2 Dylan Porter MD Work Phone: [facility] 05-13-2024 09:04-0400 Body temperature 97.7 [degF] Dylan Porter MD Work Phone: [facility] 05-13-2024 09:04-0400 Body weight 80.74 kg Dylan Porter MD Work Phone: [facility] 05-13-2024 09:04-0400 Diastolic blood pressure 81 mm[Hg] Dylan Porter MD Work Phone: [facility] 05-13-2024 09:04-0400 Heart rate 74 /min Dylan Porter MD Work Phone: [facility] 05-13-2024 09:04-0400 SaO2% (BldA) [Mass fraction] 99 % Dylan Porter MD Work Phone: [facility] 05-13-2024 09:04-0400 Systolic blood pressure 134 mm[Hg] Dylan Porter MD Work Phone: [facility] 04-23-2024 08:54-0400 Body mass index (BMI) [Ratio] 24.35 kg/m2 Nabila Chery APRN.HOGSHEAD STOCK CLERK Work Phone: [facility] 04-23-2024 08:54-0400 Body temperature 98.1 [degF] Nabila Chery APRN.HOGSHEAD STOCK CLERK Work Phone: [facility] 04-23-2024 08:54-0400 Body weight 78.9 kg Nabila Chery APRN.HOGSHEAD STOCK CLERK Work Phone: [facility] 04-23-2024 08:54-0400 Diastolic blood pressure 64 mm[Hg] Nabila Chery APRN.HOGSHEAD STOCK CLERK Work Phone: [facility] 04-23-2024 08:54-0400 Heart rate 72 /min Nabila Chery APRN.HOGSHEAD STOCK CLERK Work Phone: [facility] 04-23-2024 08:54-0400 Respiratory rate 19 /min Nabila Chery APRN.HOGSHEAD STOCK CLERK Work Phone: [facility] 04-23-2024 08:54-0400 SaO2% (BldA) [Mass fraction] 99 % Nabila Chery APRN.HOGSHEAD STOCK CLERK Work Phone: [facility] 04-23-2024 08:54-0400 Systolic blood pressure 108 mm[Hg] Nabila Chery APRN.HOGSHEAD STOCK CLERK Work Phone: [facility] 04-23-2024 07:40-0400 Body mass index (BMI) [Ratio] 24.41 kg/m2 Chair Ntu Work Phone: [facility] 04-23-2024 07:40-0400 Body temperature 97.7 [degF] Chair Ntu Work Phone: [facility] 04-23-2024 07:40-0400 Body weight 79.1 kg Chair Ntu Work Phone: [facility] 04-23-2024 07:40-0400 Diastolic blood pressure 64 mm[Hg] Chair Ntu Work Phone: [facility] 04-23-2024 07:40-0400 Heart rate 72 /min Chair Ntu Work Phone: [facility] 04-23-2024 07:40-0400 Respiratory rate 18 /min Chair Ntu Work Phone: [facility] 04-23-2024 07:40-0400 SaO2% (BldA) [Mass fraction] 100 % Chair Ntu Work Phone: [facility] 04-23-2024 07:40-0400 Systolic blood pressure 113 mm[Hg] Chair Ntu Work Phone: [facility] 04-03-2024 07:27-0400 Body temperature 98.1 [degF] Chair 2 Work Phone: [facility] 04-03-2024 07:27-0400 Diastolic blood pressure 62 mm[Hg] Chair 2 Work Phone: [facility] 04-03-2024 07:27-0400 Heart rate 80 /min Chair 2 Work Phone: [facility] 04-03-2024 07:27-0400 Respiratory rate 18 /min Chair 2 Work Phone: [facility] 04-03-2024 07:27-0400 Systolic blood pressure 109 mm[Hg] Chair 2 Work Phone: [facility] 04-02-2024 10:23-0400 Body temperature 98.2 [degF] Chair 2 Work Phone: [facility] 04-02-2024 10:23-0400 Diastolic blood pressure 69 mm[Hg] Chair 2 Work Phone: [facility] 04-02-2024 10:23-0400 Heart rate 73 /min Chair 2 Work Phone: [facility] 04-02-2024 10:23-0400 Respiratory rate 18 /min Chair 2 Work Phone: [facility] 04-02-2024 10:23-0400 Systolic blood pressure 113 mm[Hg] Chair 2 Work Phone: [facility] 04-01-2024 10:01-0400 Body height 180.2 cm Chair 2 Work Phone: [facility] Comment on above: SHOES ON 04-01-2024 10:01-0400 Body mass index (BMI) [Ratio] 25.87 kg/m2 Chair 2 Work Phone: [facility] 04-01-2024 10:01-0400 Body weight 84 kg Chair 2 Work Phone: [facility] 04-01-2024 09:19-0400 Body height 176.6 cm Niesha Galdamez MD Work Phone: [facility] Comment on above: shoes off 04-01-2024 09:19-0400 Body mass index (BMI) [Ratio] 26.74 kg/m2 Niesha Galdamez MD Work Phone: [facility] 04-01-2024 09:19-0400 Body temperature 97.59 [degF] Niesha Galdamez MD Work Phone: [facility] 04-01-2024 09:19-0400 Body weight 83.4 kg Niesha Galdamez MD Work Phone: [facility] Comment on above: shoes off 04-01-2024 09:19-0400 Diastolic blood pressure 67 mm[Hg] Niesha Galdamez MD Work Phone: [facility] 04-01-2024 09:19-0400 Heart rate 73 /min Niesha Galdamez MD Work Phone: [facility] 04-01-2024 09:19-0400 Respiratory rate 18 /min Niesha Galdamez MD Work Phone: [facility] 04-01-2024 09:19-0400 SaO2% (BldA) [Mass fraction] 97 % Niesha Galdamez MD Work Phone: [facility] 04-01-2024 09:19-0400 Systolic blood pressure 126 mm[Hg] Niesha Galdamez MD Work Phone: [facility] 03-22-2024 15:58-0400 Body mass index (BMI) [Ratio] 25.9 kg/m2 JUANPABLO Varela MD Work Phone: [facility] 03-22-2024 15:58-0400 Body temperature 97.3 [degF] JUANPABLO Varela MD Work Phone: [facility] 03-22-2024 15:58-0400 Body weight 84 kg JUANPABLO Varela MD Work Phone: [facility] 03-22-2024 15:58-0400 Diastolic blood pressure 82 mm[Hg] JUANPABLO Varela MD Work Phone: [facility] 03-22-2024 15:58-0400 Heart rate 85 /min JUANPABLO Varela MD Work Phone: [facility] 03-22-2024 15:58-0400 Respiratory rate 18 /min JUANPABLO Varela MD Work Phone: [facility] 03-22-2024 15:58-0400 SaO2% (BldA) [Mass fraction] 98 % JUANPABLO Varela MD Work Phone: [facility] 03-22-2024 15:58-0400 Systolic blood pressure 145 mm[Hg] JUANPABLO Varela MD Work Phone: [facility] 03-16-2024 14:31-0400 Body mass index (BMI) [Ratio] 25.87 kg/m2 JUANPABLO Varela MD Work Phone: [facility] 03-16-2024 14:31-0400 Body temperature 98.29 [degF] JUANPABLO Varela MD Work Phone: [facility] 03-16-2024 14:31-0400 Body weight 83.9 kg JUANPABLO Varela MD Work Phone: [facility] 03-16-2024 14:31-0400 Diastolic blood pressure 83 mm[Hg] JUANPABLO Varela MD Work Phone: [facility] 03-16-2024 14:31-0400 Heart rate 91 /min JUANPABLO Varela MD Work Phone: [facility] 03-16-2024 14:31-0400 Respiratory rate 16 /min JUANPABLO Varela MD Work Phone: [facility] 03-16-2024 14:31-0400 SaO2% (BldA) [Mass fraction] 97 % JUANPABLO Varela MD Work Phone: [facility] 03-16-2024 14:31-0400 Systolic blood pressure 119 mm[Hg] JUANPABLO Varela MD Work Phone: [facility] 03-15-2024 07:41-0400 Body mass index (BMI) [Ratio] 26.49 kg/m2 JUANPABLO Varela MD Work Phone: [facility] 03-15-2024 07:41-0400 Body temperature 97.9 [degF] JUANPABLO Varela MD Work Phone: [facility] 03-15-2024 07:41-0400 Body weight 85.91 kg JUANPABLO Varela MD Work Phone: [facility] 03-15-2024 07:41-0400 Diastolic blood pressure 81 mm[Hg] JUANPABLO Varela MD Work Phone: [facility] 03-15-2024 07:41-0400 Heart rate 79 /min JUANPABLO Varela MD Work Phone: [facility] 03-15-2024 07:41-0400 Respiratory rate 18 /min JUANPABLO Varela MD Work Phone: [facility] 03-15-2024 07:41-0400 SaO2% (BldA) [Mass fraction] 95 % JUANPABLO Varela MD Work Phone: [facility] 03-15-2024 07:41-0400 Systolic blood pressure 116 mm[Hg] JUANPABLO Varela MD Work Phone: [facility] 03-09-2024 13:57-0400 Body temperature 98.2 [degF] [facility] Main Work Phone: [facility] 03-09-2024 13:57-0400 Diastolic blood pressure 80 mm[Hg] [facility] Main Work Phone: [facility] 03-09-2024 13:57-0400 Heart rate 81 /min [facility] Work Phone: [facility] 03-09-2024 13:57-0400 Respiratory rate 18 /min [facility] Work Phone: [facility] 03-09-2024 13:57-0400 Systolic blood pressure 134 mm[Hg] [facility] Work Phone: [facility] 03-09-2024 13:11-0400 SaO2% (BldA) [Mass fraction] 96 % [facility] Work Phone: [facility] Comment on above: RA 03-09-2024 09:15-0400 Body height 180.1 cm [facility] Work Phone: [facility] 03-09-2024 09:15-0400 Body mass index (BMI) [Ratio] 25.31 kg/m2 [facility] Work Phone: [facility] 03-09-2024 09:15-0400 Body weight 82.1 kg [facility] Work Phone: [facility] 03-08-2024 15:34-0400 Body height 177.2 cm Niesha Galdamez MD Work Phone: [facility] 03-08-2024 15:34-0400 Body mass index (BMI) [Ratio] 26.21 kg/m2 Niesha Galdamez MD Work Phone: [facility] 03-08-2024 15:34-0400 Body temperature 97.5 [degF] Niesha Galdamez MD Work Phone: [facility] 03-08-2024 15:34-0400 Body weight 82.3 kg Niesha Galdamez MD Work Phone: [facility] 03-08-2024 15:34-0400 Diastolic blood pressure 76 mm[Hg] Niesha Galdamez MD Work Phone: [facility] 03-08-2024 15:34-0400 Heart rate 91 /min Niesha Galdamez MD Work Phone: [facility] 03-08-2024 15:34-0400 Respiratory rate 20 /min Niesha Galdamez MD Work Phone: [facility] 03-08-2024 15:34-0400 SaO2% (BldA) [Mass fraction] 97 % Niesha Galdamez MD Work Phone: [facility] 03-08-2024 15:34-0400 Systolic blood pressure 130 mm[Hg] Niesha Galdamez MD Work Phone: [facility] 02-12-2024 10:55-0400 Body temperature 97.9 [degF] Niesha Galdamez MD Work Phone: [facility] 02-12-2024 10:55-0400 Body weight 84 kg Niesha Galdamez MD Work Phone: [facility] 02-12-2024 10:55-0400 Diastolic blood pressure 72 mm[Hg] Niehsa Galdamez MD Work Phone: [facility] 02-12-2024 10:55-0400 Heart rate 75 /min Niesha Galdamez MD Work Phone: [facility] 02-12-2024 10:55-0400 Respiratory rate 18 /min Niesha Galdamez MD Work Phone: [facility] 02-12-2024 10:55-0400 SaO2% (BldA) [Mass fraction] 99 % Niesha Galdamez MD Work Phone: [facility] 02-12-2024 10:55-0400 Systolic blood pressure 133 mm[Hg] Niesha Galdamez MD Work Phone: [facility] 02-02-2024 15:44-0400 Body temperature 97.2 [degF] Michael Boykin MD Work Phone: [facility] 02-02-2024 15:44-0400 Body weight 83.2 kg Michael Boykin MD Work Phone: [facility] 02-02-2024 15:44-0400 Diastolic blood pressure 76 mm[Hg] Michael Boykin MD Work Phone: [facility] 02-02-2024 15:44-0400 Heart rate 81 /min Michael Boykin MD Work Phone: [facility] 02-02-2024 15:44-0400 Respiratory rate 18 /min Michael Boykin MD Work Phone: [facility] 02-02-2024 15:44-0400 SaO2% (BldA) [Mass fraction] 98 % Michael Boykin MD Work Phone: [facility] 02-02-2024 15:44-0400 Systolic blood pressure 135 mm[Hg] Michael Boykin MD Work Phone: [facility] 01-28-2024 09:55-0400 Body height 179.1 cm Dorcas Bolanos MD Work Phone: [facility] 01-28-2024 09:55-0400 Body mass index (BMI) [Ratio] 26.38 kg/m2 Dorcas Bolanos MD Work Phone: [facility] 01-28-2024 09:55-0400 Body temperature 97.9 [degF] Dorcas Bolanos MD Work Phone: [facility] 01-28-2024 09:55-0400 Body weight 84.6 kg Dorcas Bolanos MD Work Phone: [facility] 01-28-2024 09:55-0400 Diastolic blood pressure 71 mm[Hg] Dorcas Bolanos MD Work Phone: [facility] 01-28-2024 09:55-0400 Heart rate 91 /min Dorcas oBlanos MD Work Phone: [facility] 01-28-2024 09:55-0400 Respiratory rate 16 /min Dorcas Bolanos MD Work Phone: [facility] 01-28-2024 09:55-0400 SaO2% (BldA) [Mass fraction] 98 % Dorcas Bolanos MD Work Phone: [facility] 01-28-2024 09:55-0400 Systolic blood pressure 129 mm[Hg] Dorcas Bolanos MD Work Phone: [facility] 01-12-2024 14:05-0400 Body temperature 97 [degF] Michael Boykin MD Work Phone: [facility] 01-12-2024 14:05-0400 Body weight 83.9 kg Michael Boykin MD Work Phone: [facility] 01-12-2024 14:05-0400 Diastolic blood pressure 77 mm[Hg] Michael Boykin MD Work Phone: [facility] 01-12-2024 14:05-0400 Heart rate 100 /min Michael Boykin MD Work Phone: [facility] 01-12-2024 14:05-0400 Respiratory rate 18 /min Michael Boykin MD Work Phone: [facility] 01-12-2024 14:05-0400 SaO2% (BldA) [Mass fraction] 97 % Michael Boykin MD Work Phone: [facility] 01-12-2024 14:05-0400 Systolic blood pressure 140 mm[Hg] Michael Boykin MD Work Phone: [facility] 01-05-2024 12:35-0500 Body height 177.8 cm Niesha Galdamez MD Work Phone: [facility] 01-05-2024 12:35-0500 Body temperature 97.11 [degF] Niesha Galdamez MD Work Phone: [facility] 01-05-2024 12:35-0500 Body weight 83.7 kg Niesha Galdamez MD Work Phone: [facility] 01-05-2024 12:35-0500 Diastolic blood pressure 80 mm[Hg] Niesha Galdamez MD Work Phone: [facility] 01-05-2024 12:35-0500 Heart rate 93 /min Niesha Galdamez MD Work Phone: [facility] 01-05-2024 12:35-0500 Respiratory rate 15 /min Niesha Galdamez MD Work Phone: [facility] 01-05-2024 12:35-0500 SaO2% (BldA) [Mass fraction] 96 % Niesha Galdamez MD Work Phone: [facility] 01-05-2024 12:35-0500 Systolic blood pressure 139 mm[Hg] Niesha Galdamez MD Work Phone: [facility] 12-30-2023 11:03-0500 Body temperature 98.49 [degF] JUANPABLO Varela MD Work Phone: [facility] 12-30-2023 11:03-0500 Body weight 84.8 kg JUANPABLO Varela MD Work Phone: [facility] 12-30-2023 11:03-0500 Diastolic blood pressure 81 mm[Hg] JUANPABLO Varela MD Work Phone: [facility] 12-30-2023 11:03-0500 Heart rate 89 /min JUANPABLO Varela MD Work Phone: [facility] 12-30-2023 11:03-0500 Respiratory rate 16 /min JUANPABLO Varela MD Work Phone: [facility] 12-30-2023 11:03-0500 SaO2% (BldA) [Mass fraction] 97 % JUANPABLO Varela MD Work Phone: [facility] 12-30-2023 11:03-0500 Systolic blood pressure 116 mm[Hg] NA Zee LOFTON Work Phone: [facility] 12-25-2023 14:58-0500 Body height 179.5 cm Michael Boykin MD Work Phone: [facility] 12-25-2023 14:58-0500 Body temperature 97.7 [degF] Michael Boykin MD Work Phone: [facility] 12-25-2023 14:58-0500 Body weight 84.2 kg Michael Boykin MD Work Phone: [facility] 12-25-2023 14:58-0500 Diastolic blood pressure 82 mm[Hg] Michael Boykin MD Work Phone: [facility] 12-25-2023 14:58-0500 Heart rate 88 /min Michael Boykin MD Work Phone: [facility] 12-25-2023 14:58-0500 Respiratory rate 16 /min Michael Boykin MD Work Phone: [facility] 12-25-2023 14:58-0500 SaO2% (BldA) [Mass fraction] 98 % Michael Boykin MD Work Phone: [facility] 12-25-2023 14:58-0500 Systolic blood pressure 141 mm[Hg] Michael Boykin MD Work Phone: [facility] 09-03-2023 09:15-0400 Body temperature 97.9 [degF] Chair Rudy Work Phone: [facility] 09-03-2023 09:15-0400 Diastolic blood pressure 71 mm[Hg] Chair Rudy Work Phone: [facility] 09-03-2023 09:15-0400 Heart rate 77 /min Chair Jordan Work Phone: [facility] 09-03-2023 09:15-0400 Respiratory rate 16 /min Chair Rudy Work Phone: [facility] 09-03-2023 09:15-0400 SaO2% (BldA) [Mass fraction] 97 % Chair Jordan Work Phone: [facility] 09-03-2023 09:15-0400 Systolic blood pressure 106 mm[Hg] Chair Jordan Work Phone: [facility] 09-02-2023 09:01-0400 Body height 179.5 cm Michael Boykin MD Work Phone: [facility] 09-02-2023 09:01-0400 Body temperature 97.39 [degF] Michael Boykin MD Work Phone: [facility] 09-02-2023 09:01-0400 Body weight 80.38 kg Michael Boykin MD Work Phone: [facility] 09-02-2023 09:01-0400 Diastolic blood pressure 75 mm[Hg] Michael Boykin MD Work Phone: [facility] 09-02-2023 09:01-0400 Heart rate 80 /min Michael Boykin MD Work Phone: [facility] 09-02-2023 09:01-0400 Respiratory rate 16 /min Michael Boykin MD Work Phone: [facility] 09-02-2023 09:01-0400 SaO2% (BldA) [Mass fraction] 97 % Michael Boykin MD Work Phone: [facility] 09-02-2023 09:01-0400 Systolic blood pressure 130 mm[Hg] Michael Boykin MD Work Phone: [facility] 07-09-2023 09:11-0400 Body temperature 98.01 [degF] Chair Rudy Work Phone: [facility] 07-09-2023 09:11-0400 Diastolic blood pressure 68 mm[Hg] Chair Rudy Work Phone: [facility] 07-09-2023 09:11-0400 Heart rate 74 /min Chair Rudy Work Phone: [facility] 07-09-2023 09:11-0400 Respiratory rate 16 /min Chair Jordan Work Phone: [facility] 07-09-2023 09:11-0400 SaO2% (BldA) [Mass fraction] 98 % Chair Rudy Work Phone: [facility] 07-09-2023 09:11-0400 Systolic blood pressure 112 mm[Hg] Chair Rudy Work Phone: [facility] 07-08-2023 11:42-0400 Body temperature 98.01 [degF] Chair Jordan Work Phone: [facility] 07-08-2023 11:42-0400 Diastolic blood pressure 64 mm[Hg] Chair Jordan Work Phone: [facility] 07-08-2023 11:42-0400 Heart rate 54 /min Chair Rudy Work Phone: [facility] 07-08-2023 11:42-0400 Respiratory rate 16 /min Chair Rudy Work Phone: [facility] 07-08-2023 11:42-0400 SaO2% (BldA) [Mass fraction] 97 % Chair Rudy Work Phone: [facility] 07-08-2023 11:42-0400 Systolic blood pressure 98 mm[Hg] Chair Jordan Work Phone: [facility] 09-05-2023 08:41-0400 Body height 179.5 cm Michael Boykin MD Work Phone: [facility] 07-08-2023 08:41-0400 Body temperature 97.59 [degF] Michael Boykin MD Work Phone: [facility] 07-08-2023 08:41-0400 Body weight 76.57 kg Michael Boykin MD Work Phone: [facility] 07-08-2023 08:41-0400 Diastolic blood pressure 70 mm[Hg] Michael Boykin MD Work Phone: [facility] 07-08-2023 08:41-0400 Heart rate 85 /min Michael Boykin MD Work Phone: [facility] 07-08-2023 08:41-0400 Respiratory rate 18 /min Michael Boykin MD Work Phone: [facility] 07-08-2023 08:41-0400 SaO2% (BldA) [Mass fraction] 97 % Michael Boykin MD Work Phone: [facility] 07-08-2023 08:41-0400 Systolic blood pressure 116 mm[Hg] Michael Boykin MD Work Phone: [facility] 06-11-2023 08:57-0400 Body temperature 98.29 [degF] Chair Rudy Work Phone: [facility] 06-11-2023 08:57-0400 Diastolic blood pressure 72 mm[Hg] Chair Rudy Work Phone: [facility] 06-11-2023 08:57-0400 Heart rate 70 /min Chair Jordan Work Phone: [facility] 06-11-2023 08:57-0400 Respiratory rate 18 /min Chair Rudy Work Phone: [facility] 06-11-2023 08:57-0400 SaO2% (BldA) [Mass fraction] 98 % Chair Jordan Work Phone: [facility] 06-11-2023 08:57-0400 Systolic blood pressure 117 mm[Hg] Chair Rudy Work Phone: [facility] 06-10-2023 14:09-0400 Body temperature 98.2 [degF] Chair Rudy Work Phone: [facility] 06-10-2023 14:09-0400 Diastolic blood pressure 63 mm[Hg] Chair Rudy Work Phone: [facility] 06-10-2023 14:09-0400 Heart rate 70 /min Chair Jordan Work Phone: [facility] 06-10-2023 14:09-0400 Respiratory rate 16 /min Chair Rudy Work Phone: [facility] 06-10-2023 14:09-0400 SaO2% (BldA) [Mass fraction] 96 % Chair Rudy Work Phone: [facility] 06-10-2023 14:09-0400 Systolic blood pressure 102 mm[Hg] Chair Rudy Work Phone: [facility] 06-10-2023 09:00-0400 Body height 179.5 cm Chair Jordan Work Phone: [facility] 06-10-2023 09:00-0400 Body weight 79.83 kg Chair Rudy Work Phone: [facility] 06-05-2023 15:27-0400 Body height 177.8 cm Michael Boykin MD Work Phone: [facility] 06-05-2023 15:27-0400 Body temperature 97.39 [degF] Michael Boykin MD Work Phone: [facility] 06-05-2023 15:27-0400 Body weight 80.56 kg Michael Boykin MD Work Phone: [facility] 06-05-2023 15:27-0400 Diastolic blood pressure 72 mm[Hg] Michael Boykin MD Work Phone: [facility] 06-05-2023 15:27-0400 Heart rate 83 /min Michael Boykin MD Work Phone: [facility] 06-05-2023 15:27-0400 Respiratory rate 16 /min Michael Boykin MD Work Phone: [facility] 06-05-2023 15:27-0400 SaO2% (BldA) [Mass fraction] 96 % Michael Boykin MD Work Phone: [facility] 06-05-2023 15:27-0400 Systolic blood pressure 129 mm[Hg] Michael Boykin MD Work Phone: [facility] 05-27-2023 14:51-0400 Body height 177.8 cm Niesha Galdamez MD Work Phone: [facility] 05-27-2023 14:51-0400 Body temperature 98.01 [degF] Niesha Galdamez MD Work Phone: [facility] 05-27-2023 14:51-0400 Body weight 80.2 kg Niesha Galdamez MD Work Phone: [facility] 05-27-2023 14:51-0400 Diastolic blood pressure 85 mm[Hg] Niesha Galdamez MD Work Phone: [facility] 05-27-2023 14:51-0400 Heart rate 90 /min Niesha Galdamez MD Work Phone: [facility] 05-27-2023 14:51-0400 Respiratory rate 18 /min Niesha Galdamez MD Work Phone: [facility] 05-27-2023 14:51-0400 SaO2% (BldA) [Mass fraction] 97 % Niesha Galdamez MD Work Phone: [facility] 05-27-2023 14:51-0400 Systolic blood pressure 144 mm[Hg] Niesha Galdamez MD Work Phone: [facility] 05-22-2023 14:58-0400 Body height 177.8 cm Michael Boykin MD Work Phone: [facility] 05-22-2023 14:58-0400 Body temperature 98.29 [degF] Michael Boykin MD Work Phone: [facility] 05-22-2023 14:58-0400 Body weight 78.74 kg Michael Boykin MD Work Phone: [facility] 05-22-2023 14:58-0400 Diastolic blood pressure 73 mm[Hg] Michael Boykin MD Work Phone: [facility] 05-22-2023 14:58-0400 Heart rate 84 /min Michael Boykin MD Work Phone: [facility] 05-22-2023 14:58-0400 Respiratory rate 16 /min Michael Boykin MD Work Phone: [facility] 05-22-2023 14:58-0400 SaO2% (BldA) [Mass fraction] 97 % Michael Boykin MD Work Phone: [facility] 05-22-2023 14:58-0400 Systolic blood pressure 120 mm[Hg] Michael Boykin MD Work Phone: [facility] 05-13-2023 10:57-0400 Body height 177.8 cm Michael Boykin MD Work Phone: [facility] 05-13-2023 10:57-0400 Body temperature 98.2 [degF] Michael Boykin MD Work Phone: [facility] 05-13-2023 10:57-0400 Body weight 79.47 kg Michael Boykin MD Work Phone: [facility] 05-13-2023 10:57-0400 Diastolic blood pressure 70 mm[Hg] Michael Boykin MD Work Phone: [facility] 05-13-2023 10:57-0400 Heart rate 75 /min Michael Boykin MD Work Phone: [facility] 05-13-2023 10:57-0400 Respiratory rate 16 /min Michael Boykin MD Work Phone: [facility] 05-13-2023 10:57-0400 SaO2% (BldA) [Mass fraction] 97 % Michael Boykin MD Work Phone: [facility] 05-13-2023 10:57-0400 Systolic blood pressure 134 mm[Hg] Michael Boykin MD Work Phone: [facility] 04-29-2023 13:13-0400 Blood Pressure Location Chiquita NILL [facility] 04-29-2023 13:13-0400 Diastolic blood pressure 76 mm[Hg] Chiquita NILL [facility] 04-29-2023 13:13-0400 Heart rate 72 /min Chiquita NILL [facility] 04-29-2023 13:13-0400 Respiratory rate 16 /min Chiquita NILL [facility] 04-29-2023 13:13-0400 Systolic blood pressure 122 mm[Hg] Chiquita NILL [facility] Encounters Encounter Date Encounter Type Care Provider Facility Start: 09-08-2024 End: 09-08-2024 ambulatory Shae Tirado MA [facility] Start: 09-08-2024 End: 09-08-2024 Patient encounter procedure Shae Tirado MA [facility] Comment on above: Population Health Na vigation Outreach (ACO No PCP 11.4.2023 - SharePoint Worksheet - Multiple Locations) Start: 08-30-2024 End: 08-30-2024 Telephone encounter Ivania Jackman RN Work Phone: Hematology/Oncology Comment on above: Care Coordination (P axlovid Question) Start: 07-19-2024 End: 07-19-2024 ambulatory Michael Boykin MD Work Phone: Hematology/Oncology Comment on above: Diffuse large B-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) (Primary Dx); Lymphedema Start: 07-19-2024 End: 07-19-2024 Patient encounter procedure Michael Boykin MD Work Phone: Hematology/Oncology Start: 07-14-2024 End: 07-14-2024 ambulatory Chiquita RIVERA Facility:[facility] Start: 07-14-2024 End: 07-14-2024 Patient encounter procedure Chiquita RIVERA [facility] Start: 07-07-2024 End: 07-07-2024 ambulatory [facility] Facility:[facility] Start: 07-07-2024 End: 07-07-2024 Subsequent hospital visit by physician Arrival Time Radiology Work Phone: Radiology [facility] Comment on above: Diffuse large B-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) [C83.38] Start: 06-23-2024 End: 06-23-2024 ambulatory Chiquita Rivera [facility] Work Phone: Start: 06-23-2024 End: 06-23-2024 Departed Referred MD Chiquita Rivera Work Phone: [facility] Start: 06-23-2024 End: 06-23-2024 ambulatory Chiquita RIVERA Facility:[id number] Start: 06-17-2024 End: 06-17-2024 Patient encounter procedure Michael Boykin MD Work Phone: Hematology/Oncology Start: 06-17-2024 End: 06-17-2024 ambulatory Lab/[place] Work Phone: Hematology/Oncology Comment on above: Diffuse large B-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) Diffuse large B-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) (Primary Dx); Lymphedema Start: 06-08-2024 End: 06-08-2024 ambulatory Chiquita RIVERA Facility:[facility] Start: 06-08-2024 End: 06-08-2024 Patient encounter procedure Chiquita RIVERA [facility] Start: 06-02-2024 Telephone encounter Mitra BARBA Work Phone: Psychiatry Comment on above: Referral / [facility] Start: 05-17-2024 Telephone encounter Ivania frias RN Work Phone: Hematology/Oncology Comment on above: National Secretary - O ther (Appointment) Start: 05-13-2024 End: [...] Start: 05-07-2024 End: 05-07-2024 ambulatory NIESHA GALDAMEZ Facility:[facility] Start: 05-07-2024 End: 05-07-2024 Subsequent hospital visit by physician Arrival Time Radiology Work Phone: Radiology [facility] Comment on above: Diffuse large B-cell lymphoma, unspecified body region (HCC) [C83.30] Start: 05-03-2024 Telephone encounter Danielle patel RN Hematology/Oncology Comment on above: Patient Update (Week ly Labs) Start: 05-03-2024 End: 05-03-2024 ambulatory NIESHA GALDAMEZ Facility:[facility] Start: 04-30-2024 Telephone encounter Danielle patel RN Hematology/Oncology Comment on above: Patient Update Start: 04-23-2024 End: 04-23-2024 Patient encounter procedure Nabila Chery APRN.[employer] Work Phone: Hematology/Oncology Start: 04-23-2024 End: 04-23-2024 [...] imbalance Start: 04-14-2024 Emergency department patient visit NIESHA GALDAMEZ Facility:[facility] Start: 04-14-2024 Telephone encounter Cecil castañeda MD Work Phone: Pulmonary Medicine Comment on above: Returning Patient's Call Start: 04-07-2024 End: 04-07-2024 Evaluation and management of inpatient DANIELLE WINTER Facility:[facility] Start: 04-06-2024 Orders Only Niesha Galdamez MD Work Phone: Hematology/Oncology Comment on above: Diffuse large B-cell lymphoma, unspecified body region (HCC) (Primary Dx); History of engineered cell therapy infusion; Diffuse large b-cell lymphoma, lymph nodes of multiple sites (HCC) Start: 04-03-2024 End: 04-04-2024 ambulatory Chair 31 [facility] Work Phone: Hematology/Oncology Comment on above: Encounter for antine oplastic chemotherapy (Primary Dx); Diffuse large B-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) Start: 04-02-2024 End: 04-03-2024 ambulatory Chair 14 [facility] Work Phone: Hematology/Oncology Comment on [...] Phone: Hematology/Oncology Start: 03-26-2024 ambulatory Priyanka Echols [facility] tology/Oncology Start: 03-25-2024 End: 03-25-2024 ambulatory NIESHA BUFFALO Facility:[facility] Start: 03-25-2024 End: 03-25-2024 Subsequent hospital visit by physician Arrival Time Radiology Work Phone: Radiology Pet CT Comment on above: 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) [C83.35] Start: 03-22-2024 End: 03-22-2024 ambulatory Tristen VARELA Facility:[facility] Start: 03-22-2024 End: 03-22-2024 Patient encounter procedure Tristen Varela MD Work Phone: Radiation Oncology Comment on above: Follicular lymphoma grade IIIa, unspecified body region (HCC) (Primary Dx) Start: 03-22-2024 Radiation Oncology Note Tristen Varela MD Work Phone: Radiation Oncology Comment on above: Completion Note Start: 03-19-2024 End: 03-19-2024 Social Work Merced ACEVEDO Hematology/Oncology Start: 03-18-2024 End: 03-18-2024 ambulatory NIESHA GALDAMEZ Facility:[facility] Start: 03-17-2024 End: 03-17-2024 ambulatory NIESHA BUFFALO Facility:[facility] Start: 03-16-2024 End: 03-16-2024 ambulatory Tristen VARELA Facility:[facility] Start: 03-16-2024 End: 03-16-2024 Patient encounter [...] (Primary Dx) Start: 03-09-2024 End: 03-09-2024 ambulatory [facility] Facility:[facility] Start: 03-08-2024 End: 03-09-2024 Patient encounter [...] Investigati on Start: 02-25-2024 Telephone encounter Krystyna cash RAIL TRACTOR OPERATOR Work Phone: Hematology/Oncology Comment on above: Social [...] (Primary Dx) Start: 02-23-2024 Social Work Krystyna ALCARAZW Work Phone: Hematology/Oncology Start: 02-18-2024 Telephone encounter Niesha diaz MD Work Phone: Hematology/Oncology Comment on above: National Secretary - O ther (Next Steps) Diffuse large [...] encounter procedure Niesha Galdamez MD Work Phone: [facility] Start: 02-02-2024 End: 02-02-2024 Patient encounter procedure Michael Boykin MD Work Phone: [facility] Start: 02-02-2024 End: 02-02-2024 ambulatory Brit Arzola MA [facility] [place] Comment on above: Population Health Na vigation Outreach (ACO NO PCP) 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); History of follicular lymphoma Start: 01-30-2024 End: 01-30-2024 ambulatory NIESHA GALDAMEZ Facility:[facility] Start: 01-30-2024 End: 01-30-2024 Subsequent hospital visit by physician Arrival Time Radiology Work Phone: Radiology Pet CT Comment on above: Diffuse large B-cell lymphoma, unspecified body region (HCC) [C83.30] Start: 01-28-2024 ambulatory SELF SELF Facility:[facility] Start: 01-28-2024 End: 01-29-2024 Office outpatient new 60 minutes Dorcas Bolanos MD Work Phone: Division of Hematology & Oncology at [facility] Comment on above: Diffuse large B-cell lymphoma, unspecified body region Start: 01-27-2024 Telephone encounter Radha womack RN Work Phone: Hematology/Oncology Comment on above: Patient Update (Init ial CAR-T phone call) Start: 01-23-2024 ambulatory Radha Peng RN Work Phone: Hematology/Oncology Comment on above: CAR-T Therapy Start: 01-23-2024 E-mail encounter fro m caregiver Radha Peng RN Work Phone: [facility] Start: 01-16-2024 End: 01-16-2024 ambulatory Niesha Galdamez MD Work Phone: Hematology/Oncology Comment on above: 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) (Primary Dx) Start: 01-16-2024 End: 01-16-2024 Telemedicine consultation with patient Niesha Galdamez MD Work Phone: [facility] Start: 01-14-2024 Telephone encounter Ivania [...] encounter procedure Niesha Galdamez MD Work Phone: [facility] Start: 12-30-2023 End: 12-30-2023 ambulatory MICHAEL BOYKIN Facility:[facility] Start: 12-30-2023 End: 12-30-2023 Patient encounter [...] Results) Start: 12-17-2023 End: 12-17-2023 ambulatory Chiquita Eliezer Miguel [facility] Work Phone: Start: 12-17-2023 End: 12-17-2023 Departed Referred MD Chiquita Rivera Work Phone: [facility] Start: 12-17-2023 End: 12-17-2023 ambulatory Chiquita RIVERA Facility: [place] Start: 12-15-2023 Telephone encounter Michael parker MD Work Phone: [facility] Comment on above: Future Appointment Start: 12-09-2023 End: 12-09-2023 ambulatory Michael Boykin Facility:[facility] Start: 11-20-2023 End: 11-20-2023 ambulatory MICHAEL BOYKIN Facility:[facility] Start: 11-18-2023 End: 11-18-2023 ambulatory CLEO FELIZ Facility:[facility] Start: 11-18-2023 End: 11-18-2023 Subsequent hospital visit by physician Arrival Time Radiology Work Phone: Radiology Pet CT Comment on above: Diffuse large B-cell lymphoma, unspecified body region (HCC) [C83.30] Start: 10-29-2023 End: 10-29-2023 ambulatory MICHAEL BOYKIN Facility:[facility] Start: 10-28-2023 End: 10-28-2023 ambulatory MICHAEL BOYKIN Facility:[facility] Start: 10-23-2023 Telephone encounter Michael parker MD Work Phone: Hematology/Oncology Comment on above: Lab Orders Start: 10-01-2023 End: 10-01-2023 ambulatory Chair 10 Jordan Work Phone: Hematology/Oncology Comment on above: 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) Start: 09-30-2023 End: 10-01-2023 ambulatory Lab/[facility] [place] Rudy Work Phone: Hematology/Oncology Comment on above: 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) Start: 09-23-2023 End: 09-23-2023 ambulatory MICHAEL BOYKIN Facility:[facility] Start: 09-23-2023 End: 09-23-2023 Subsequent hospital visit [...] (Primary Dx) Start: 09-02-2023 End: 09-02-2023 ambulatory Michael Boykin MD Work Phone: Hematology/Oncology Comment on above: 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) Start: 09-02-2023 End: 09-02-2023 Patient encounter procedure Michael Boykin MD Work Phone: [facility] Start: 08-05-2023 End: 08-05-2023 ambulatory Lab/[facility] [place] [...] Start: 06-19-2023 End: 06-19-2023 ambulatory Lab/[facility] [place] [facility] Work Phone: Hematology/Oncology Comment on above: 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) Start: 06-17-2023 End: 06-17-2023 Patient encounter procedure Chiquita RIVERA General Surgery Nill/Said Jeff Start: 06-12-2023 Telephone encounter Fifi Sommers RN [...] RN Work Phone: Hematology/Oncology Comment on above: National Secretary - O ther (Uric Acid Results) National Secretary - O ther (Medication Problem) Start: 06-05-2023 [...] MD Work Phone: Hematology/Oncology Comment on above: National Secretary - O ther Start: 05-27-2023 End: 05-28-2023 ambulatory Niesha Galdamez MD Work Phone: Hematology/Oncology Comment on above: History of diffuse l arge B-cell lymphoma (Primary Dx); Diffuse large B-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); 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) Start: 05-27-2023 End: 05-28-2023 Patient encounter procedure Niesha Galdamez MD Work Phone: [facility] Start: 05-23-2023 Telephone encounter Michael parker MD Work Phone: [facility] Comment on above: Appointment Start: 05-22-2023 End: 05-22-2023 ambulatory Michael Boykin MD Work Phone: Hematology/Oncology Comment on above: Diffuse large B-cell lymphoma of lymph nodes of multiple regions (HCC) (Primary Dx) Start: 05-22-2023 End: 05-22-2023 Patient encounter procedure Michael Boykin MD Work Phone: [facility] Start: 05-21-2023 Telephone encounter Ivania frias RN Work Phone: Hematology/Oncology Comment on above: Care Coordination (P athology Update) Start: 05-19-2023 Telephone encounter Ivania frias RN Work Phone: Hematology/Oncology Comment on above: Care Coordination (P athology Results) Start: 05-16-2023 Telephone encounter Michael parker MD Work Phone: [facility] Comment on above: 2nd opinion path Start: 05-14-2023 End: 05-14-2023 Patient encounter procedure Chiquita RIVERA General Surgery Nill/Richard Anguiano Start: 05-13-2023 End: 05-13-2023 ambulatory Michael Boykin MD Work Phone: Hematology/Oncology Comment on above: Non-Hodgkin lymphoma of lymph nodes of multiple regions, unspecified non-Hodgkin lymphoma type (HCC) (Primary Dx); Acquired hypothyroidism Start: 05-13-2023 End: 05-13-2023 Patient encounter procedure Michael Boykin MD Work Phone: [facility] Start: 04-29-2023 End: 04-29-2023 Patient encounter procedure Chiquita RIVERA General Surgery Nill/Said Jeff Start: 04-02-2023 End: 04-03-2023 ambulatory [facility] Start: 04-02-2023 End: 04-02-2023 Subsequent hospital visit by physician [facility] Comment on above: Non-Hodgkin's lympho ma, unspecified body region, unspecified non-Hodgkin lymphoma type (HCC); Hypothyroidism, unspecified type Start: 04-05-2021 End: 04-05-2021 Subsequent hospital visit by physician [facility] Comment on above: Non-Hodgkin's lympho ma, unspecified body region, unspecified non-Hodgkin lymphoma type (HCC); Hypothyroidism, unspecified type Start: 04-17-2020 End: 04-17-2020 Subsequent hospital visit by physician [facility] Drawing Room [facility] Comment on above: Non-Hodgkin's lympho ma, unspecified body region, unspecified non-Hodgkin lymphoma type (HCC); Hypothyroidism, unspecified type; Encounter for screening for lung cancer Procedures Date Procedure Procedure Detail Performing Clinician Start: 07-07-[address] atten uation skull base mid-thigh Michael Boykin MD Work Phone: Start: 07-07-2024 End: 07-07-2024 Blood count complete auto&auto difrntl wbc Nabila Chery GROUND DEFENCE OFFICERAnupHOGSHEAD STOCK CLERK Work Phone: Start: 06-23-2024 Colonoscopy Chiquita MONTAGUE [...] use [facility] Provider Start: 04-23-2024 Antibody screen NIESHA GALDAMEZ Comment on above: Order Comment: Speci men Type: BLOOD SPECIMENOrdering Facility: [facility] Address: [address] [place] [address] Performed By: #### T SCR ####CC MAIN BLOOD BANKCLIA [id number] [address] Start: 04-23-2024 End: 04-23-2024 Antibody screen rbc each serum technique Niesha Galdamez MD Work Phone: Start: 04-23-2024 CBC + DIFF Niesha diaz MD Work Phone: Start: 04-23-2024 End: 04-23-2024 Comprehensive metabolic panel Niesha Galdamez MD Work Phone: Start: 04-14-2024 Antibody screen NIESHA GALDAMEZ Comment on above: Order Comment: Speci men Type: BLOOD SPECIMENOrdering Facility: [facility] Address: [address] [place] [address] Performed By: #### T SCR ####CC MAIN BLOOD BANKCLIA [id number] [address] [place] Start: 04-11-2024 Antibody screen NIESHA GALDAMEZ Comment on above: Order Comment: Speci men Type: BLOOD SPECIMENOrdering Facility: [facility] Address: [address] [place] [address] Performed By: #### T SCR ####CC MAIN BLOOD BANKCLIA [id number] [address] Start: 04-08-2024 Antibody screen NIESHA GALDAMEZ Comment on above: Order Comment: Speci men Type: BLOOD SPECIMENOrdering Facility: [facility] Address: [address] [place] [address] Performed By: #### T SCR ####CC MAIN BLOOD BANKCLIA [id number] [address] Start: 04-06-2024 Antibody screen NIESHA GALDAMEZ Comment on above: Order Comment: Speci men Type: BLOOD SPECIMENOrdering Facility: [facility] Address: [address] [place] [address] Performed By: #### T SCR ####CC MAIN BLOOD BANKCLIA [id number] [address] Start: 04-01-2024 Blood count complete auto&auto difrntl wbc Niesha Galdamez MD Work Phone: Start: 03-25-2024 Pet [...] Galdamez MD Work Phone: Start: 02-24-2024 Echocardiography WALKERISO N DEREK Start: 02-24-2024 Antibody screen NIESHA GALDAMEZ Comment on above: Order Comment: Speci men Type: BLOOD SPECIMENOrdering Facility: [facility] Address: [address] [place] [address] Performed By: #### T SCR ####CC MAIN BLOOD BANKCLIA [id number] [address] [place] Start: 02-24-2024 Antibody screen [...] 01-28-2024 Comprehensive metabo lic panel Patti Isidro GROUND DEFENCE OFFICER-HOGSHEAD STOCK CLERK Work Phone: Start: 01-28-2024 Hepatitis b surf ant ibody hbsab Patti Isidro GROUND DEFENCE OFFICER-HOGSHEAD STOCK CLERK Work Phone: Start: 01-28-2024 Iaad ia hiv-1 ag w/h iv-1 & hiv-2 antbdy single Patti Isidro GROUND DEFENCE OFFICER-HOGSHEAD STOCK CLERK Work Phone: Start: 12-25-2023 Blood count complete auto&auto difrntl wbc Michael Boykin MD Work Phone: Start: 12-17-2023 Excision of inguinal lymph nodes Chiquita RIVERA Start: 11-18-[address] atten uation skull base mid-thigh Cleo Feliz GROUND DEFENCE OFFICER.HOGSHEAD STOCK CLERK Work Phone: Start: 11-18-2023 End: 11-18-2023 Blood count complete auto&auto difrntl wbc Cleo Feliz GROUND DEFENCE OFFICER.HOGSHEAD STOCK CLERK Work Phone: Start: 09-30-2023 Blood count complete [...] Author Start: 07-07-2027 Diabetes Screening Diabetes Screenin [facility] Start: 06-17-2027 Diabetes Screening Diabetes Screenin g [facility] Start: 05-13-2027 Diabetes Screening Diabetes Screenin g [facility] Start: 05-03-2027 Diabetes Screening Diabetes Screenin g [facility] Start: 04-23-2027 Diabetes Screening Diabetes Screenin g [facility] Start: 04-14-2027 Diabetes Screening Diabetes Screenin g [facility] Start: 04-06-2027 Diabetes Screening Diabetes Screenin g [facility] Start: 04-01-2027 Diabetes Screening Diabetes Screenin g [facility] Start: 03-09-2027 Diabetes Screening Diabetes Screenin g [facility] Start: 03-08-2027 Diabetes Screening Diabetes Screenin g [facility] Start: 02-23-2027 Diabetes Screening Diabetes Screenin g [facility] Start: 01-27-2027 Diabetes Screening Diabetes Screenin g [facility] Start: 12-25-2026 Diabetes Screening Diabetes Screenin g [facility] Start: 11-18-2026 Diabetes Screening Diabetes Screenin g [facility] Start: 09-30-2026 Diabetes Screening Diabetes Screenin tristen [facility] Start: 09-02-2026 Diabetes Screening Diabetes Screenin tristen [facility] Start: 08-05-2026 Diabetes Screening Diabetes Screenin g [facility] Start: 07-22-2026 Diabetes Screening Diabetes Screenin g [facility] Start: 07-08-2026 DIABETES SCREEN DIABETES SCREEN [facility] Start: 06-19-2026 DIABETES SCREEN DIABETES SCREEN [facility] Start: 06-05-2026 DIABETES SCREEN DIABETES SCREEN [facility] Start: 05-13-2026 DIABETES SCREEN DIABETES SCREEN [facility] Start: 10-18-2024 End: 10-18-2024 Follow-up encounter Hematology/Oncology Comment on above: 3 month follow up [facility] lab port draw and flush Start: 07-19-2024 End: 10-18-2024 CBC W Auto Differential panel - Blood COMPLETE BLOOD COUNT AND DIFFERENTIAL Lab Routine Diffuse large B-cell lymphoma of lymph nodes of multiple regions (HCC) Expected: 07/19/2024, Expires: 10/18/2024 [facility] Work Phone: Comment on above: Expected: 07/19/2024 , Expires: 10/18/2024 Start: 07-19-2024 End: 10-18-2024 Comprehensive metabolic 2000 panel - Serum or Plasma COMPREHENSIVE METABOLIC PANEL Lab Routine Diffuse large B-cell lymphoma of lymph nodes of multiple regions (HCC) Expected: 07/19/2024, Expires: 10/18/2024 [facility] Comment on above: Expected: 07/19/2024 , Expires: 10/18/2024 Start: 07-19-2024 End: 07-19-2024 Follow-up encounter 07/19/2024 9:30 AM EDT Visit (SP) Office Hematology/Oncology [address] [facility] [place] [address] Michael Boykin MD [address] [place] [address] follow up after pet scan and lab Hematology/Oncology Comment on above: follow up after pet scan and lab Start: 07-07-2024 End: 07-07-2024 Patient encounter procedure 07/07/2024 12:15 PM EDT Appointment Radiology Pet CT [address] [place] [address] Pet scan and lab in [address] Comment on above: Pet scan and lab in 3 weeks Start: 07-04-2024 Influenza vaccination O [facility] Start: 06-17-2024 End: 06-17-2024 Telephone follow-up 06/17/2024 3:00 PM EDT Visit (SP) Office Hematology/Oncology [address] [place] [address] Michael Boykin MD [address] [place] [address] lab & 2 month follow up from CAR-T infusion per phone encounter-date & time ok'd by [facility] Hematology/Oncology Comment on above: lab & 2 month follow up from CAR-T infusion per phone encounter-date & time ok'd by [facility] Start: 06-17-2024 End: 06-17-2024 Patient encounter procedure 06/17/2024 2:45 PM EDT Office Visit [facility] [address] [place] [address] lab & 2 month follow up from CAR-T infusion per phone encounter-date & time ok'd by [facility] Comment on above: lab & 2 month follow up from CAR-T infusion per phone encounter-date & time ok'd by [facility] Start: 05-13-2024 End: 08-12-2024 C reactive protein [Mass/volume] in Serum or Plasma C-REACTIVE PROTEIN Lab Routine Diffuse large B-cell lymphoma, unspecified body region (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 Expected: 05/13/2024, Expires: 08/12/2024 [facility] Comment on above: Expected: 05/13/2024 , Expires: 08/12/2024 Start: 05-13-2024 End: 08-12-2024 CBC W Auto Differential panel - Blood COMPLETE BLOOD COUNT AND DIFFERENTIAL Lab Routine Diffuse large B-cell lymphoma, unspecified body region (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 Expected: 05/13/2024, Expires: 08/12/2024 [facility] Comment on above: Expected: 05/13/2024 , Expires: 08/12/2024 Start: 05-13-2024 End: 08-12-2024 Comprehensive metabolic 2000 panel - Serum or Plasma COMPREHENSIVE METABOLIC PANEL Lab Routine Diffuse large B-cell lymphoma, unspecified body region (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 Expected: 05/13/2024, Expires: 08/12/2024 [facility] Comment on above: Expected: 05/13/2024 , Expires: 08/12/2024 Start: 05-13-2024 End: 08-12-2024 CYTOMEGALOVIRUS (CMV) DNA, QUANTITATIVE PCR, PLASMA [facility] Comment on above: Expected: 05/13/2024 , Expires: 08/12/2024 Start: 05-13-2024 End: 08-12-2024 Ferritin [Mass/volume] in Serum or Plasma FERRITIN Lab Routine Diffuse large B-cell lymphoma, unspecified body region (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 Expected: 05/13/2024, Expires: 08/12/2024 [facility] Comment on above: Expected: 05/13/2024 , Expires: 08/12/2024 Start: 05-13-2024 End: 08-12-2024 Immunodeficiency panel - Blood by Flow cytometry (FC) [facility] Comment on above: Expected: 05/13/2024 , Expires: 08/12/2024 Start: 05-13-2024 End: 08-12-2024 IMMUNOGLOBULINS,IGG,IGA,I GM [facility] Comment on above: Expected: 05/13/2024 , Expires: 08/12/2024 Start: 05-13-2024 End: 08-12-2024 Lactate dehydrogenase [Enzymatic activity/volume] in Serum or Plasma LACTATE DEHYDROGENASE Lab Routine Diffuse large B-cell lymphoma, unspecified body region (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 Expected: 05/13/2024, Expires: 08/12/2024 [facility] Comment on above: Expected: 05/13/2024 , Expires: 08/12/2024 Start: 05-13-2024 End: 08-12-2024 Magnesium [Mass/volume] in Serum or Plasma MAGNESIUM Lab Routine Diffuse large B-cell lymphoma, unspecified body region (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 Expected: 05/13/2024, Expires: 08/12/2024 [facility] Comment on above: Expected: 05/13/2024 , Expires: 08/12/2024 Start: 05-13-2024 End: 08-12-2024 Phosphate [Mass/volume] in Serum or Plasma PHOSPHORUS INORGANIC Lab Routine Diffuse large B-cell lymphoma, unspecified body region (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 Expected: 05/13/2024, Expires: 08/12/2024 [facility] Comment on above: Expected: 05/13/2024 , Expires: 08/12/2024 Start: 05-13-2024 End: 05-13-2024 ambulatory Hematology/Oncology Comment on above: DLBCL/C83.38 Start: 05-13-2024 End: 05-13-2024 Patient encounter procedure Infectious Disease Comment on above: POST BMT REVACCINATI ON ASSESSMENT DLBCL/C83.38 Start: 05-07-2024 End: 05-07-2024 Patient encounter procedure 05/07/2024 12:00 PM EDT Appointment Radiology Pet CT [address] [place] [address] [place] [address] Comment on above: [facility] Start: 05-03-2024 End: 05-03-2024 Patient encounter procedure 05/03/2024 10:15 AM EDT Office Visit [facility] [address] [place] [address] [place] [address] lab [facility] Comment on above: lab Start: 04-23-2024 End: 07-23-2024 RUBEOLA (MEASLES)IGG [facility] Comment on above: Expected: 04/23/2024 , Expires: 07/23/2024 Start: 04-23-2024 End: 07-23-2024 VARICELLA ZOSTER IGG [facility] Work Phone: Comment on above: Expected: 04/23/2024 , Expires: 07/23/2024 Start: 04-16-2024 End: 04-16-2024 ambulatory Hematology/Oncology Comment on above: DLBCL/C83.38 Start: 04-06-2024 Subsequent hospital visit by physician 04/06/2024 Hospital Encounter HOSP MAIN G110 [address] [place] [address] [place] [address] [place] [address] Diffuse large B-cell lymphoma, unspecified site [C83.30] HOSP MAIN G110 Comment on above: Diffuse large B-cell lymphoma, unspecified site [C83.30] Start: 04-06-2024 End: 04-06-2024 Patient encounter procedure 04/06/2024 7:30 AM EDT Office Visit Admitting [address] [place] [address] DLBCL Admitting Comment on above: DLBCL Start: 04-03-2024 End: 04-03-2024 ambulatory 04/03/2024 7:30 AM EDT Infusion Center Hematology/Oncology [address] [place] [address] DLBCL/C83.38 Hematology/Oncology Comment on above: DLBCL/C83.38 Start: 04-02-2024 End: 04-02-2024 ambulatory 04/02/2024 10:15 AM EDT Infusion Center Hematology/Oncology [address] [place] [address] DLBCL/C83.38 Hematology/Oncology Comment on above: DLBCL/C83.38 Start: 04-01-2024 End: 04-01-2024 ambulatory Hematology/Oncology Comment on above: DLBCL DLBCL/C83.38 Start: 04-01-2024 End: 04-01-2024 ambulatory 04/01/2024 8:20 AM [facility] Hematology/Oncology [address] [place] [address] DLBCL/C83.38 Hematology/Oncology Comment on above: DLBCL/C83.38 Start: 03-31-2024 End: 06-30-2024 Bilirubin.total [Mass/volume] in Serum or Plasma BILIRUBIN TOTAL BLD Lab Routine Diffuse large B-cell lymphoma of lymph nodes of multiple regions (HCC) Expected: 03/31/2024, Expires: 06/30/2024 [facility] Work Phone: Comment on above: Expected: 03/31/2024 , Expires: 06/30/2024 Start: 03-31-2024 End: 06-30-2024 C reactive protein [Mass/volume] in Serum or Plasma C-REACTIVE PROTEIN Lab Routine Diffuse large B-cell lymphoma of lymph nodes of multiple regions (HCC) Expected: 03/31/2024, Expires: 06/30/2024 [facility] Work Phone: Comment on above: Expected: 03/31/2024 , Expires: 06/30/2024 Start: 03-31-2024 End: 06-30-2024 CBC W Auto Differential panel - Blood COMPLETE BLOOD COUNT AND DIFFERENTIAL Lab Routine Diffuse large B-cell lymphoma of lymph nodes of multiple regions (HCC) Expected: 03/31/2024, Expires: 06/30/2024 [facility] Work Phone: Comment on above: Expected: 03/31/2024 , Expires: 06/30/2024 Start: 03-31-2024 End: 06-30-2024 Comprehensive metabolic 2000 panel - Serum or Plasma COMPREHENSIVE METABOLIC PANEL Lab Routine Diffuse large B-cell lymphoma of lymph nodes of multiple regions (HCC) Expected: 03/31/2024, Expires: 06/30/2024 [facility] Work Phone: Comment on above: Expected: 03/31/2024 , Expires: 06/30/2024 Start: 03-31-2024 End: 06-30-2024 Lactate dehydrogenase [Enzymatic activity/volume] in Serum or Plasma LACTATE DEHYDROGENASE Lab Routine Diffuse large B-cell lymphoma of lymph nodes of multiple regions (HCC) Expected: 03/31/2024, Expires: 06/30/2024 [facility] Work Phone: Comment on above: Expected: 03/31/2024 , Expires: 06/30/2024 Start: 03-31-2024 End: 06-30-2024 Phosphate [Mass/volume] in Serum or Plasma PHOSPHORUS INORGANIC Lab Routine Diffuse large B-cell lymphoma of lymph nodes of multiple regions (HCC) Expected: 03/31/2024, Expires: 06/30/2024 [facility] Work Phone: Comment on above: Expected: 03/31/2024 , Expires: 06/30/2024 Start: 03-31-2024 End: 06-30-2024 Urate [Mass/volume] in Serum or Plasma URIC ACID Lab Routine Diffuse large B-cell lymphoma of lymph nodes of multiple regions (HCC) Expected: 03/31/2024, Expires: 06/30/2024 [facility] Work Phone: Comment on above: Expected: 03/31/2024 , Expires: 06/30/2024 Start: 03-31-2024 End: 03-31-2024 Patient encounter procedure Molecular Imaging Comment on above: NM PET/CT SKULL-THIG H SUB Start: 03-22-2024 End: 03-22-2024 Patient encounter procedure Radiation Oncology Comment on above: Pelvis Location: [facility] Start: 03-19-2024 End: 03-19-2024 Patient encounter procedure 03/19/2024 3:15 PM EDT Appointment Radiation Oncology [address] [place] [address] [place] [address] Pelvis Radiation Oncology Comment on above: Pelvis Start: 03-18-2024 End: 03-18-2024 Patient encounter procedure 03/18/2024 1:30 PM EDT Appointment Radiation Oncology [address] [place] [address] Pelvis Radiation Oncology Comment on above: Pelvis Start: 03-17-2024 End: 03-17-2024 Patient encounter procedure 03/17/2024 9:45 AM EDT Appointment Radiation Oncology [address] [place] [address] Pelvis Radiation Oncology Comment on above: Pelvis [...] 03/09/2024 9:30 AM EDT Infusion Center Hematology/Oncology [address] [place] [address] DLBCL/C83.38 Hematology/Oncology Comment on above: DLBCL/C83.38 Start: 03-09-2024 End: 03-09-2024 Admission to same day surgery center 03/09/2024 7:30 AM EDT - 03/09/2024 9:30 AM EDT Surgery Angio [address] [place] [address] HYDRAULIC SPINNER [address] [place] [address] INSERTION NON-TUNNELED CV CATHETER OVER AGE 5 Angio Comment on above: INSERTION NON-TUNNEL ED CV CATHETER OVER AGE 5 Start: 03-09-2024 Subsequent hospital visit by physician 03/09/2024 7:30 AM EDT Hospital Encounter Angio [address] [place] [address] [facility]A[facility]IN[facility] [address] [place] [address] Diffuse large B-cell lymphoma of lymph nodes of multiple regions (HCC) [C83.38] Angio Comment on above: Diffuse large B-cell lymphoma of lymph nodes of multiple regions (HCC) [C83.38] Start: 03-09-2024 End: 03-09-2024 Insj non-tunneled central venous cath age 6 yr/> [facility] ANGIO HB6 Start: 03-08-2024 End: 03-08-2024 ambulatory Hematology/Oncology Comment on above: DLBCL DLBCL/C83.38 Start: 03-08-2024 End: 06-07-2024 BLOOD TB SCREEN [facility] Work Phone: Comment on above: Expected: 03/08/2024 , Expires: 06/07/2024 Start: 02-24-2024 End: 02-24-2024 Patient encounter procedure 02/24/2024 2:30 PM EDT Office Visit Cardiology [address] [place] [address] Diffuse large B-cell lymphoma of lymph nodes [...] multiple regions (HCC) Expected: 02/24/2024, Expires: 05/25/2024 [facility] Work Phone: Comment on above: Expected: 02/24/2024 , Expires: 05/25/2024 Start: 02-24-2024 End: 05-25-2024 BLOOD TB SCREEN [facility] Work Phone: Comment on above: Expected: 02/24/2024 , Expires: 05/25/2024 Start: 02-24-2024 End: 05-25-2024 CBC W Auto Differential panel - Blood COMPLETE BLOOD COUNT AND DIFFERENTIAL Lab Routine Diffuse large B-cell lymphoma of lymph nodes of multiple regions (HCC) Expected: 02/24/2024, Expires: 05/25/2024 [facility] Work Phone: Comment on above: Expected: 02/24/2024 , Expires: 05/25/2024 Start: 02-24-2024 End: 05-25-2024 Comprehensive metabolic 2000 panel - Serum or Plasma COMPREHENSIVE METABOLIC PANEL Lab Routine Diffuse large B-cell lymphoma of lymph nodes of multiple regions (HCC) Expected: 02/24/2024, Expires: 05/25/2024 [facility] Work Phone: Comment on above: Expected: 02/24/2024 , Expires: 05/25/2024 Start: 02-24-2024 End: 05-25-2024 Erythrocyte sedimentation rate SEDIMENTATION RATE, WESTERGREN Lab Routine Diffuse large B-cell lymphoma of lymph nodes of multiple regions (HCC) Expected: 02/24/2024, Expires: 05/25/2024 [facility] Work Phone: Comment on above: Expected: 02/24/2024 , Expires: 05/25/2024 Start: 02-24-2024 End: 05-25-2024 Fibrin D-dimer FEU [Mass/volume] in Platelet poor plasma D-DIMER Lab Routine Diffuse large B-cell lymphoma of lymph nodes of multiple regions (HCC) Expected: 02/24/2024, Expires: 05/25/2024 [facility] Work Phone: Comment on above: Expected: 02/24/2024 , Expires: 05/25/2024 Start: 02-24-2024 End: 05-25-2024 Fibrinogen [Mass/volume] in Platelet poor plasma by Coagulation assay FIBRINOGEN Lab Routine Diffuse large B-cell lymphoma of lymph nodes of multiple regions (HCC) Expected: 02/24/2024, Expires: 05/25/2024 [facility] Work Phone: Comment on above: Expected: 02/24/2024 , Expires: 05/25/2024 Start: 02-24-2024 End: 05-25-2024 Hepatitis B virus surface Ab [Presence] in Serum HEPATITIS B SURFACE ANTIBODY Lab Routine Diffuse large B-cell lymphoma of lymph nodes of multiple regions (HCC) Expected: 02/24/2024, Expires: 05/25/2024 [facility] Work Phone: Comment on above: Expected: 02/24/2024 , Expires: 05/25/2024 Start: 02-24-2024 End: 05-25-2024 IDM PANEL ADULT [facility] Work Phone: Comment on above: Expected: 02/24/2024 , Expires: 05/25/2024 Start: 02-24-2024 End: 05-25-2024 IMMUNOGLOBULINS,IGG,IGA,I GM IMMUNOGLOBULINS,IGG,IGA ,IGM Lab Routine Diffuse large B-cell lymphoma of lymph nodes of multiple regions (HCC) Expected: 02/24/2024, Expires: 05/25/2024 [facility] Work Phone: Comment on above: Expected: 02/24/2024 , Expires: 05/25/2024 Start: 02-24-2024 End: 05-25-2024 Lactate dehydrogenase [Enzymatic activity/volume] in Serum or Plasma LACTATE DEHYDROGENASE Lab Routine Diffuse large B-cell lymphoma of lymph nodes of multiple regions (HCC) Expected: 02/24/2024, Expires: 05/25/2024 [facility] Work Phone: Comment on above: Expected: 02/24/2024 , Expires: 05/25/2024 Start: 02-24-2024 End: 05-25-2024 Magnesium [Mass/volume] in Serum or Plasma MAGNESIUM Lab Routine Diffuse large B-cell lymphoma of lymph nodes of multiple regions (HCC) Expected: 02/24/2024, Expires: 05/25/2024 [facility] Work Phone: Comment on above: Expected: 02/24/2024 , Expires: 05/25/2024 Start: 02-24-2024 End: 05-25-2024 PT panel - Platelet poor plasma by Coagulation assay PROTHROMBIN TIME Lab Routine Personal history of diseases of blood and blood-forming organs Diffuse large B-cell lymphoma of lymph nodes of multiple regions (HCC) Expected: 02/24/2024, Expires: 05/25/2024 [facility] Work Phone: Comment on above: Expected: 02/24/2024 , Expires: 05/25/2024 Start: 02-24-2024 End: 05-25-2024 TYPE + SCREEN TYPE + SCREEN Blood Bank Routine Diffuse large B-cell lymphoma of lymph nodes of multiple regions (HCC) Expected: 02/24/2024, Expires: 05/25/2024 [facility] Work Phone: Comment on above: Expected: 02/24/2024 , Expires: 05/25/2024 Start: 02-24-2024 End: 02-24-2024 ambulatory Hematology/Oncology Comment on above: DLBCL PLEASE PAGE [id number] WHEN THE PATIENT CHECKS IN Start: 02-24-2024 End: 02-24-2024 Nursing evaluation of patient and report Hematology/Oncology Comment on above: PLEASE PAGE [id number] WHEN THE PATIENT CHECKS IN Start: 02-18-2024 End: 05-19-2024 Magnesium [Mass/volume] in Serum or Plasma MAGNESIUM Lab Routine Diffuse large B-cell lymphoma of lymph nodes of multiple regions (HCC) Expected: 02/18/2024, Expires: 05/19/2024 [facility] Work Phone: Comment on above: Expected: 02/18/2024 , Expires: 05/19/2024 Start: 01-20-2024 End: 02-18-2025 PET+CT Guidance for localization of tumor of Skull base to mid-thigh-- W 18F-FDG IV NM PET/CT SKULL-THIGH SUBSEQUENT Radiology Routine 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) Expected: 01/20/2024 (Approximate), Expires: 02/18/2025 [facility] Work Phone: Comment on above: Expected: 01/20/2024 (Approximate), Expires: 02/18/2025 Start: 12-25-2023 End: 03-25-2024 [id number] [Mass/volume] in Serum or Plasma [facility] Work Phone: Comment on above: Expected: 12/25/2023 , Expires: 03/25/2024 Start: 11-03-2023 Advance Directive Discussion Advance Directive Discussion [facility] Start: 11-03-2023 Behavioral Health Screening Behavioral Health Screening [facility] Start: 11-03-2023 Depression Assessment Depression Ass essment [facility] Start: 10-28-2023 End: 01-27-2024 CBC W Auto Differential panel - Blood CBC + DIFF Lab Routine 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) Expected: 10/28/2023, Expires: 01/27/2024 [facility] Work Phone: Comment on above: Expected: 10/28/2023 , Expires: 01/27/2024 Start: 10-28-2023 End: 01-27-2024 Comprehensive metabolic 2000 panel - Serum or Plasma COMP METABOLIC PANEL Lab Routine 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) Expected: 10/28/2023, Expires: 01/27/2024 [facility] Work Phone: Comment on above: Expected: 10/28/2023 , Expires: 01/27/2024 Start: 08-05-2023 End: 10-05-2023 CBC W Auto Differential panel - Blood CBC + DIFF Lab Routine 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) Expected: 08/05/2023, Expires: 10/05/2023 [facility] Work Phone: Comment on above: Expected: 08/05/2023 , Expires: 10/05/2023 Start: 08-05-2023 End: 10-05-2023 Comprehensive metabolic 2000 panel - Serum or Plasma COMP METABOLIC PANEL Lab Routine 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) Expected: 08/05/2023, Expires: 10/05/2023 [facility] Work Phone: Comment on above: Expected: 08/05/2023 , Expires: 10/05/2023 Start: 07-22-2023 End: 09-21-2023 Basic metabolic 2000 panel - Serum or Plasma BASIC METABOLIC PNL Lab Routine 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) Expected: 07/22/2023 (Approximate), Expires: 09/21/2023 [facility] Work Phone: Comment on above: Expected: 07/22/2023 (Approximate), Expires: 09/21/2023 Start: 07-22-2023 End: 09-21-2023 CBC W Auto Differential panel - Blood CBC + DIFF Lab Routine 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) Expected: 07/22/2023 (Approximate), Expires: 09/21/2023 [facility] Work Phone: Comment on above: Expected: 07/22/2023 (Approximate), Expires: 09/21/2023 Start: 07-22-2023 End: 09-21-2023 Urate [Mass/volume] in Serum or Plasma URIC ACID BLOOD Lab Routine 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) Expected: 07/22/2023 (Approximate), Expires: 09/21/2023 [facility] Work Phone: Comment on above: Expected: 07/22/2023 (Approximate), Expires: 09/21/2023 Start: 07-04-2023 Influenza vaccination C [facility] Start: 06-03-2023 Influenza vaccination Flu vacc ine (Season Ended) [facility] Start: 05-13-2023 End: 07-13-2023 [id number] [Mass/volume] in Serum or Plasma [facility] Work Phone: Comment on above: Expected: 05/13/2023 , Expires: 07/13/2023 Start: 05-13-2023 End: 07-13-2023 Chronic hepatitis differentiation between hepatitis B and C virus panel - Serum or Plasma [facility] Work Phone: Comment on above: Expected: 05/13/2023 , Expires: 07/13/2023 Start: 04-16-2023 End: 04-16-2023 Patient encounter procedure 04/16/2023 Office Visit Oncology Emelia Gonzalez MD [address] [place] [address] [facility] Start: 04-02-2023 Annual Wellness Visi t (AWV) Annual Wellness Visit (AWV) [facility] Start: 11-03-2022 ADVANCE DIRECTIVE DISCUSSION ADVANCE DIRECTIVE DISCUSSION [facility] Start: 11-03-2022 DEPRESSION ASSESSMENT DEPRESSION ASS ESSMENT [facility] Start: 04-05-2022 Thyroid stimulating hormone measurement TSH testing [facility] Work Phone: Start: 2021 Abdominal aortic ane urysm screening [facility] Start: 2021 PNEUMOCOCCAL: 65+ (1 - PCV) PNEUMOCOCCAL: 65+ (1 - PCV) [facility] Start: 07-04-2021 Influenza vaccination Flu vacc ine (Season Ended) [facility] Work Phone: Start: 04-18-2021 End: 04-18-2021 Patient encounter procedure 04/18/2021 Office Visit Oncology Maritza Mendoza MD [address] [place] [address] [facility] Start: 07-04-2020 Influenza vaccination Flu vacc ine (Season Ended) [place], [place] Start: 04-19-2020 End: 04-19-2020 Office Visit 04/19/2020 Office Visit Oncology Maritza Mendoza MD [address] [place] [address] [facility] Start: 02-17-2020 TSH Qn TSH testing [place], [place] Start: 2016 RSV Vaccine (1 - 1-d ose 60+ series) RSV Vaccine (1 - 1-dose 60+ series) [facility] Start: 2016 RSV Vaccine (1 - Ris k 60-74 years 1-dose series) RSV Vaccine (1 - Risk 60-74 years 1-dose series) [facility] Start: 2011 PROSTATE CANCER SCRE ENING DISCUSSION PROSTATE CANCER SCREENING DISCUSSION [facility] Start: 2011 Prostate specific an tigen measurement Prostate Cancer Screening Discussion [facility] Start: 2006 Prostate specific an tigen measurement PROSTATE CANCER SCREENING DISCUSSION [facility] Start: 2006 Screening for malign ant neoplasm of colon Colon cancer screen colonoscopy [place], [place] Start: 2006 Screening for malign ant neoplasm of lung Lung Cancer Screening [facility] Start: 2006 Shingles Vaccine (1 of 2) Barrera gles Vaccine (1 of 2) [place], [place] Start: 2006 SHINGRIX VACCINE (1 of 2) BARRERA GRIX VACCINE (1 of 2) [facility] Start: 2001 COLOGUARD (FIT-DNA) COLOGUARD (FIT-D NA) [facility] Start: 2001 Colonoscopy COLONOSCOPY [facility] Start: 2001 COLORECTAL CANCER SCREENING COLORECTAL CANCER SCREENING [facility] Start: [address] COLONOGRAPHY [facility] Start: 2001 FECAL OCCULT BLOOD FECAL OCCULT BLOO D [facility] Start: 2001 Screening for malign ant neoplasm of colon [facility] Start: 2001 SIGMOIDOSCOPY SIGMOIDOSCOPY [facility] Start: 1996 Lipid panel [facility] Start: 1991 Lipid 1996 panel - S bucky or Plasma Lipid Screening [facility] Start: 1991 Lipid panel Lipid Screening [facility] Start: 1991 LIPID SCREEN LIPID SCREEN [facility] Start: 1975 DTaP/Tdap/Td vaccine (1 - Tdap) DTaP/Tdap/Td vaccine (1 - Tdap) [facility] Start: 1975 Shingles vaccine (1 of 2) Barrera gles vaccine (1 of 2) [facility] Start: 1975 SHINGRIX VACCINE (1 of 2) BARRERA GRIX VACCINE (1 of 2) [facility] Start: 1975 Third diphtheria, te tanus and acellular pertussis (DTaP) vaccination TDAP (ADULT) [facility] Start: 1975 Urine microalbumin profile [facility] Start: 1975 Zoster vaccine hzv l michael for subcutaneous use ZOSTER (SHINGLES) VACCINE (1 of 2) [facility] Start: 1974 Annual PCP Team [employer] 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 Pastry brandon Disease Visit Annual PCP Team Chronic Disease Visit [facility] Start: 1974 Anxiety Screening Anxiety Screening [facility] Start: 1974 Depression Screening Depression Scre ening [facility] Start: 1974 Hepatitis C screening Hepatitis C sc reen [facility] Start: 1974 HEPATITIS C SCREENING HEPATITIS C SC SIMONE [facility] Start: 1971 HIV screening HIV screen [facility] [place], [place] Start: 1968 COVID-19 Vaccine (1) COVID-19 Vaccin e (1) [facility] [place] [employer] Phone: Start: 1968 Depression Screen Depression Screen [facility] Start: 1962 Pneumococcal 0-64 ye ars Vaccine (1 of 3 - PCV13) Pneumococcal 0-64 years Vaccine (1 of 3 - PCV13) [place], [place] Start: 1962 Pneumococcal 0-64 ye ars Vaccine (1 of 4 - PCV13) Pneumococcal 0-64 years Vaccine (1 of 4 - PCV13) [facility] Start: 1962 Pneumococcal 65+ yea rs Vaccine (1 - PCV) Pneumococcal 65+ years Vaccine (1 - PCV) [facility] Start: 1962 Pneumococcal vaccination PNEUM OCOCCAL VACCINE SERIES (1 of 2 - PCV) [facility] Start: 1962 Pneumococcal Vaccine : 65+ (1 - PCV) Pneumococcal Vaccine: 65+ (1 - PCV) [facility] Start: 1962 Pneumococcal Vaccine : 65+ (1 of 2 - PCV) Pneumococcal Vaccine: 65+ (1 of 2 - PCV) [facility] Start: 1962 PNEUMOCOCCAL: 65+ (1 - PCV) PNEUMOCOCCAL: 65+ (1 - PCV) [facility] Start: 1961 COVID-19 VACCINE (#1) COVID-19 VACCI NE (#1) [facility] Start: 03-18-1957 COVID-19 Vaccine (#1) COVID-19 Vacci ne (#1) [facility] Start: 1956 ABDOMINAL AORTIC ANE URYSM SCREENING ABDOMINAL AORTIC ANEURYSM SCREENING [facility] Start: 1956 Abdominal aortic ane urysm screening Abdominal Aortic Aneurysm Screening [facility] Start: 1956 Hepatitis C screening Hepatitis C sc reen [place], [place] Start: 1956 Tetanus vaccination TETANUS [facility] Start: 1956 Thyroid stimulating hormone measurement TSH [facility] CBC AND ELECTRONIC DIFF CBC AND ELECTRONIC DIFF Lab Routine Diffuse large B-cell lymphoma, unspecified body region Ordered: 01/28/2024 [facility] Work Phone: Comment on above: Ordered: 01/28/2024 CBC W Auto Different ial panel - Blood COMPLETE BLOOD COUNT AND DIFFERENTIAL Lab Routine Diffuse large B-cell lymphoma of lymph nodes of multiple regions (HCC) 04/23/2024 7:53 AM EDT [facility] End: 04-23-2025 CBC W Auto Differential panel - Blood COMPLETE BLOOD COUNT AND DIFFERENTIAL Lab Routine History of engineered cell therapy infusion Once per week for 2 Occurrences starting 04/23/2024 until 04/23/2025 [facility] Comment on above: Once per week for 2 Occurrences starting 04/23/2024 until 04/23/2025 CELLULAR THERAPY COLLECTION AND PROCESSING CELLULAR THERAPY COLLECTION AND PROCESSING Procedures Routine Diffuse large B-cell lymphoma of lymph nodes of multiple regions (HCC) Ordered: 03/02/2024 [facility] Work Phone: Comment on above: Ordered: 03/02/2024 End: 04-23-2025 Comprehensive metabolic 2000 panel - Serum or Plasma COMPREHENSIVE METABOLIC PANEL Lab Routine History of engineered cell therapy infusion Once per week for 2 Occurrences starting 04/23/2024 until 04/23/2025 [facility] Comment on above: Once per week for 2 Occurrences starting 04/23/2024 until 04/23/2025 CT Guidance for radi ation treatment of Unspecified body region CT SIM PLANNING RADIATION ONCOLOGY Radiology Routine Follicular lymphoma grade IIIa, unspecified body region (HCC) Ordered: 03/15/2024 [facility] Work Phone: Comment on above: Ordered: 03/15/2024 End: 02-17-2025 ECG COMPLETE ECG COMPLETE ECG Routine Diffuse large B-cell lymphoma of lymph nodes of multiple regions (HCC) 1 Occurrences starting 02/18/2024 until 02/17/2025 [facility] Work Phone: Comment on above: 1 Occurrences starti ng 02/18/2024 until 02/17/2025 End: 05-19-2024 Echocardiography ECHO Cardiology Routine Non-Hodgkin lymphoma of lymph nodes of multiple regions, unspecified non-Hodgkin lymphoma type (HCC) DE DIOS (dyspnea on exertion) 1 Occurrences starting 05/19/2023 until 05/19/2024 [facility] Work Phone: Comment on above: 1 Occurrences starti ng 05/19/2023 until 05/19/2024 End: 02-17-2025 Echocardiography ECHO Cardiology Routine Diffuse large B-cell lymphoma of lymph nodes of multiple regions (HCC) Encounter for monitoring cardiotoxic drug therapy 1 Occurrences starting 02/18/2024 until 02/17/2025 [facility] Work Phone: Comment on above: 1 Occurrences starti ng 02/18/2024 until 02/17/2025 IR CENTRAL CATHETER PLACEMENT IR CENTRAL CATHETER PLACEMENT Radiology Routine Diffuse large B-cell lymphoma of lymph nodes of multiple regions (HCC) Ordered: 02/18/2024 [facility] Work Phone: Comment on above: Ordered: 02/18/2024 End: 04-23-2025 Magnesium [Mass/volume] in Serum or Plasma MAGNESIUM Lab Routine History of engineered cell therapy infusion Once per week for 2 Occurrences starting 04/23/2024 until 04/23/2025 [facility] Work Phone: Comment on above: Once per week for 2 Occurrences starting 04/23/2024 until 04/23/2025 End: 10-01-2024 NM PET/CT SKULL-THIGH SUBSEQUENT NM PET/CT SKULL-THIGH SUBSEQUENT Radiology Routine 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) 1 Occurrences starting 09/02/2023 until 10/01/2024 [facility] Work Phone: Comment on above: 1 Occurrences starti ng 09/02/2023 until 10/01/2024 OUTSIDE SURG PATH SL REMI REVIEW OUTSIDE SURG PATH SLIDE REVIEW Lab Routine Non-Hodgkin lymphoma of lymph nodes of multiple regions, unspecified non-Hodgkin lymphoma type (HCC) Ordered: 12/22/2023 [facility] Work Phone: Comment on above: Ordered: 12/22/2023 End: 03-19-2025 PET+CT Guidance for localization of tumor of Skull base to mid-thigh-- W 18F-FDG IV NM PET/CT SKULL-THIGH SUBSEQUENT Radiology Routine Diffuse large B-cell lymphoma, unspecified body region (HCC) 1 Occurrences starting 02/18/2024 until 03/19/2025 [facility] Work Phone: Comment on above: 1 Occurrences starti ng 02/18/2024 until 03/19/2025 End: 05-06-2025 PET+CT Guidance for localization of tumor of Skull base to mid-thigh-- W 18F-FDG IV NM PET/CT SKULL-THIGH SUBSEQUENT Radiology Routine Diffuse large B-cell lymphoma, unspecified body region (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 1 Occurrences starting 04/06/2024 until 05/06/2025 [facility] Work Phone: Comment on above: 1 Occurrences starti ng 04/06/2024 until 05/06/2025 End: 07-17-2025 PET+CT Guidance for localization of tumor of Skull base to mid-thigh-- W 18F-FDG IV NM PET/CT SKULL-THIGH SUBSEQUENT Radiology Routine Diffuse large B-cell lymphoma of lymph nodes of multiple regions (HCC) 1 Occurrences starting 06/17/2024 until 07/17/2025 [facility] Work Phone: Comment on above: 1 Occurrences starti ng 06/17/2024 until 07/17/2025 STAFF REVIEW STAFF REVIEW Lab Routine Diffuse large B-cell lymphoma of lymph nodes of multiple regions (HCC) 04/23/2024 7:53 AM EDT [facility] End: 03-19-2025 XR Chest PA and Lateral XR CHEST 2V FRONTAL/LAT Radiology Routine Diffuse large B-cell lymphoma of lymph nodes of multiple regions (HCC) 1 Occurrences starting 02/18/2024 until 03/19/2025 [facility] Work Phone: Comment on above: 1 Occurrences starti ng 02/18/2024 until 03/19/2025 [facility] Immunizations Immunization Date Immunization Notes Care Provider Fa cility NEGATED: Highlighted row has not occurred!12-09-2023 influenza virus vaccine, unspecified formulation Chiquita MIGUEL General Surgery Jeff Payers Date Payer Category Payer Self-pay 2021 Medicare [id number] 2021 Private Health Insurance [id number] 2021 Unknown GENERIC PAYOR ME DICARE SUPPLEMENT [id number] 2021-Present [address] [address] [place] [address] [id number] 2021 Medicare [id number] 2021 Private Health Insurance CLI [id number] 2017 Private Health Insurance [facility] xxxxxxxxx 2017-Present [phone] [address] [place] [address] xxxxxxxxx [id number] 2017 Private Health Insurance [facility] PLU [id number] 2017-Present [phone] [address] [place] [address] [id number] 2017 Private Health Insurance [facility] PLU [id number] 2017-Present [phone] [address] [place] [address] [id number] 1955 Unknown [id number] 1956 Unknown [id number] [id number] 1956 Unknown [id number] 1956 Unknown [id number] [id number] 1956 Unknown [id number] [id number] 1956 Unknown [id number] [id number] 1956 Unknown [id number] [id number] 1956 Unknown [id number] Social History Date Type Detail Facility Start: 02-24-2019 End: 12-30-2023 Tobacco smoking status KSIS Former smoker [facility] Start: 11-03-1974 End: 11-03-2009 History of tobacco use Current smoker [place] Start: 11-03-1974 End: 11-03-2009 History of tobacco use Cigarette Smoker [place] Start: 02-24-2019 End: 04-17-2022 Alcohol intake Not Asked [place] Start: 1955 Sex Assigned At Not on file [place], [place] Exposure to SARS-CoV -2 (event) Unable to assess [place] Start: 02-24-2019 End: 12-30-2023 Tobacco use and exposure Never used [facility] Tobacco smoking status Never Gener al Surgery [facility] Start: 05-13-2023 End: 06-17-2024 Sex Assigned At Male [facility] History of tobacco use Passive smoker [facility] Start: 05-13-2023 End: 09-02-2023 Alcohol intake Ex-drinker (finding) [facility] Start: 05-13-2023 End: 06-17-2024 History of Social function [facility] Start: 1955 Sex Assigned At Male [facility] Start: 12-30-2023 End: 07-19-2024 Alcohol intake Current drinker of alcohol (finding) [facility] Start: 12-30-2023 Alcohol Comment beer occ [facility] Medical Equipment Procedure Code Equipment Code Equipment Origin al Text Equipment Identifier Dates Port-05/28/2023 [id number] Start: 05-28-2023 Comment on above: Description: Placed @ [facility] Functional Status Date Assessment Result Facility 06-08-2024 Functional Status N/A [facility] Jeff 04-29-2023 Functional Status N/A [facility] 02-02-2023 to 09-15-2024 Shae Tirado MA - 09/08/2024 8:58 AM ESTTelephone Encounter - Ivanai Jackman RN - 08/30/2024 10:25 AM EDTTelephone Encounter - Ivania Jackman RN - 08/30/2024 10:25 AM EDT Note Date & Type Note Facility 09-15-2024 Note [facility] 09-08-2024 Note [facility] 09-08-2024 History of Presen t illness Narrative Images from the original note were not included. POPULATION HEALTH NAVIGATION OUTREACH Action/FYI Patient Outreach for Establishing Care with Primary Care Has Established Care with a Provider and/or appointment to Establish Care: Per Care Everywhere; Outcomes: Ran and updated Care Everywhere. PCP field updated to New PCP per Navigation protocol. Reason for Outreach Care Gap/HCC or Scheduling Wellness Visits Care Gaps due: N/A Patient Contacted: Unable or unnecessary to reach patient: PCP field updated Navigation Signature: Shae Tirado MA September 08, 2024 8:58 AM documented in this encounter [facility] 08-30-2024 Telephone encount er Note Pt's spouse notified and verbalizes understanding. Ivania Jackman RN [facility] Work Phone: 08-30-2024 Miscellaneous Notes Formattin g of this note might be different from the original. Pt's spouse notified and verbalizes understanding. Ivania Jackman RN Agree that he should take Paxlovid. Mack Adams Pt testing positive for COVID earlier this morning. ER physician has prescribed Paxlovid. Spouse wants to check and make sure he is ok to take this from an oncology standpoint. Ivania Jackman RN documented in this encounter [facility] 08-30-2024 Telephone encount er Note Agree that he should take Paxlovid. Mack Adams [facility] 08-30-2024 Telephone encount er Note Pt testing positive for COVID earlier this morning. ER physician has prescribed Paxlovid. Spouse wants to check and make sure he is ok to take this from an oncology standpoint. 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) Procedures NM PET/CT SKULL-THIGH SUBSEQUENT PET IMAGING CT ATTENUATION SKULL BASE MID-THIGH Michael Boykin MD [address] [place] [address] Molecular & Functional Imaging [address] [place] [address] Referral ID Status Reason Start Date Expiration Date V isits Requested Visits Authorized [id number] Closed Auto-Generate d Referral 09/02/2023 10/01/2024 1 1 [facility]09-15-2024 [facility] History of Present illness Narrative* Michael Boykin MD - 07/18/2024 7:49 PM EDT PATIENT NAME: Katia Shaikh DATE: 07/19/2024 PRIMARY CARE PHYSICIAN: No PCP OTHER PHYSICIANS: Dr. Rivera, Dr. Emelia Gonzalez ([facility] [place]), Dr. Niesha Galdamez, Dr. Varela Portions of [...] PATHOLOGY: 12/17/2023 Right inguinal lymph node biopsy ([facility]) [facility]: Mature B-cell non-Hodgkin lymphoma [facility] Pathology:-Aggressive large B-cell lymphoma, favor germinal center immunophenotype 05/07/2023 Right inguinal lymph node biopsy [facility]: Diffuse large B-cell lymphoma [facility] Pathology: [...] Criteria score : 4 04/24/2023 PET scan ([facility]) Above the diaphragm the patient has [...] read as DLBCL at [facility]. Apr 2023: PET/CT with FDG [...] elevation). If symptoms worsen would refer to [facility] physical therapy lymphedema clinic. 2. Acquired hypothyroidism [...] indicated. 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 A Diagnostic radioactive procedure has taken place, with no further precautions necessary other than routine body substance precautions. More information regarding radiation safety can be found usingthis link: [email or web address]%20Nuclear%20Medicine%[email or web address] SIGNATURE: RT Kerwin(R) PATIENT NAME: Katia Shaikh DATE: July 07, 2024 TIME: 12:21 PM PAGER/CONTACT #: documented in this encounterSelect [facility]09-[facility]-2024 [facility] History of Present illness Narrative* Michael Boykin MD - 06/16/2024 3:46 PM EDT PATIENT NAME: Katia Shaikh DATE: 06/17/2024 PRIMARY CARE PHYSICIAN: No PCP OTHER PHYSICIANS: Dr. Rivera, Dr. Emelia Gonzalez ([facility] [place]), Dr. Niesha Galdamez, Dr. Varela Portions of [...] 2024. He subsequently underwent CAR-T therapy at [facility] on 04/06/2024. He was discharged on 04/14/2024, [...] regimen: flu/cy Date of cellular therapy infusion: 04/06/20242001: History of radiation therapy Comment: Diffuse large [...] PATHOLOGY: 12/17/2023 Right inguinal lymph node biopsy ([facility]) [facility]: Mature B-cell non-Hodgkin lymphoma [facility] Pathology:-Aggressive large B-cell lymphoma, favor germinal center immunophenotype 05/07/2023 Right inguinal lymph node biopsy [facility]: Diffuse large B-cell lymphoma [facility] Pathology: [...] Criteria score : 4 04/24/2023 PET scan ([facility]) Above the diaphragm the patient has [...] read as DLBCL at [facility]. Apr 2023: PET/CT with FDG avid lymphadenopathy above and below the diaphragm with bulky disease in abdomen and pelvis. May 2023: Came to [facility] for consultation. [facility] Path read this [...] stocking. If symptoms worsen would refer to [facility] physical therapy lymphedema clinic. 2. Acquired hypothyroidism [...] indicated. Michael Boykin MD documented in this encounter[facility]-2024 NoteGeneral Surgery Office/Clinic Note Chief Complaint consultation [...] virus vaccine, inactivated - Not Given Patient RefusesPromedica Memorial HospitalComment on above:Result Comment: Electronically Signed By: MIGUEL LOFTON, Chiquita Mas\Date and Time Signed: 06/08/24 14:22 [id number] Telephone encounter Note* Telephone Encounter - Mitra Amaro LISW - 06/02/2024 3:36 PM EDT SOCIAL WORK FOLLOW UP NOTE: [facility] Date of service:06/02/2024 Katia Terrazas Kaushik is being seen for a follow up social work visit. Today's visit includes: spouse- Jennifer TOPICS ADDRESSED: finances I received a call Thursday 05/31 regarding incorrect billing totoaling 8k per patients Jennifer. Jennifer has contacted Medicare and our [facility] billing dept with no resolve. I have escalated to [facility], manager of broadcast content Radhika Blanco and additional BMT city administrator. I called patient today and explained [...] in Care Team tab: Yes FREDA Cabrera [facility] Work Phone: [phone] Miscellaneous Notes* Telephone Encounter - Mitra Amaro LISW - [...] no resolve. I have escalated to [facility], manager of broadcast content Radhika Blanco and additional BMT city administrator. I called patient today and explained [...] tab: Yes FREDA Cabrera documented in this encounterSelect [facility]07-25-2024 Telephone encounter Note * Telephone Encounter - Aurora Alvarez - 05/27/2024 2:13 PM EDT Spoke to patient & scheduled him on 06/17/2024 for labs at 2:45 pm & BRM at 3 pm. Aurora Alvarez [facility]07-25-2024 Miscellaneous Notes* Telephone Encounter - Aurora Alvarez [...] HUC - 05/18/2024 7:32 AM EDT Good Viri Mayo, Please Advise on what date and time to put this Patient on BR's schedule in June. Thank you! MIRIAN Garcia * Telephone Encounter - Ivania Jackman RN - 05/17/2024 3:13 PM EDT Clerical: Pt will need to see BRM for labs and RV in mid June. Please schedule and call pt w/ theappointment. [...] be best that he see you at [facility], or see me at our [place] office? I can then ask our nurse [...] 200 on 2 reads. documented in this encounterSelect [facility]07-18-2024 Telephone encounter Note * Telephone Encounter - Emma Mendoza - 05/20/2024 3:02 PM EDT Roverto called back checking on status of appt. He claims he was supposed to have an appt at the end of May. I told him what was happening and that we would call him back soon with an appt date and time. [facility]07-16-2024 Telephone encounter Note* Telephone Encounter - Yesi White HUC - 05/18/2024 7:32 AM EDT Good Morning Maria Esther, Please Advise on what date and time to put this Patient on BR's schedule in Mid June. Thank you! MIRIAN Garcia [facility]07-15-2024 Telephone encounter Note* Telephone Encounter - Ivania Jackman RN - 05/17/2024 3:13 PM EDT Clerical: Pt will need to see BRM for labs and RV in june. Please schedule and call pt w/ theappointment. Thanks! Ivania Jackman RN [facility] Work Phone: [phone] Telephone encounter Note* Telephone Encounter - Ivania [...] main campus, or see me at our [place] office? I can then ask our nurse [...] count is above 200 on 2 reads. [facility]07-11-2024 NoteB[facility] History of Present illness Narrative* Mitra AmaroFREDA - 05/13/2024 12:16 PM EDT Social Work Survivorship Note Information/Referral: Katia Shaikh is a 68 year old who was referred by to [facility] Social Work for survivorship assessment, evaluation and follow up. Persons Interviewed: Patient Katia Shaikh and Caregiver: Jennifer Lunaick Patient Affect/Mood: The patient is noted as [...] that he also enjoys drag racing his [id number] pontiac trans am with his sons and [...] thought he would be referred to the hole filler of the [employer] product but was not referred. I have updated the nurse acute care nurse practitioner for additional assistance. I will also speak [...] he was quite irritable through this process. oRverto is appropriate to circumstances but there is noticeable irritation as he processed going through CAR-T . Today Roverto reports that his mood has improved. Roverto shared he is overall just bored and is looking forward to returning to hobbies. Patient shared he thought he would be referred to the hole filler of the [employer] for travel related financial assistance but was not referred. I have updated the nurse acute care nurse practitioner for additional assistance. I will also speak [...] the patient to local cancer center social service worker in [place] for ongoing care as needed.. Transfer care back to Dr. Boykin in [place] FREDA Cabrera documented in this encounterSelect Medical [facility]07-11-2024 Nurse Note* Dunia Gipson OCCA - 05/13/2024 11:10 AM EDT Additional intake questions: Has the patient had fever, nausea, vomiting, diarrhea, constipation, fatigue for > 1 week? No Does the patient have a decreased appetite? No Does patient want to see a Horticulturalist? No (yes to any of above refer patient to schedulers for dietitian appointment) ) Does patient have any new or increased numbness or tingling of extremities? No Is patient interested in fertility information? No Does patient need any prescription refills? No Does patient have an advanced directive in place? No [facility]07-11-2024 Nurse Note* Dunia Gipson OCCA - 05/13/2024 11:10 AM EDT Additional intake questions: Has the patient had fever, nausea, vomiting, diarrhea, constipation, fatigue for > 1 week? No Does the patient have a decreased appetite? No Does patient want to see a Horticulturalist? No (yes to any of above refer patient to schedulers for dietitian appointment) ) Does patient have any new or increased numbness or tingling of extremities? No Is patient interested in fertility information? No Does patient need any prescription refills? No Does patient have an advanced directive in place? No documented in this encounterSelect [facility]07-[facility]-2024 History of Present illness Narrative* Niesha Galdamez MD - 05/13/2024 11:00 AM EDT Images from the original note were not included. [facility] DEPARTMENT OF HEMATOLOGY AND MEDICAL ONCOLOGY DIAGNOSIS: [...] read as DLBCL at [facility]. 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 PHYSICAL EXAM: VS: BP 135/72 Pulse 72 [...] (k/uL) Date Value 05/13/2024 0.91 (L) Abs Zapata (k/uL) Date Value 05/13/2024 0.31 Abs Eosin [...] read as DLBCL at [facility] but when reviewed by [facility] [...] transfer care back to Dr. Boykin in [place]. I recommend follow up at 2 month [...] colonoscopy Niesha Galdamez MD Associate Staff Physician [facility] [address] [place] [address] Pager: [phone] documented in this encounterSelect Medical Specialty [facility]07-11-2024 NoteB[facility]07-[facility] Instructions* Patient Instructions* Dylan Porter MD - 05/13/2024 9:24 AM EDT Date of cellular therapy infusion: 04/06/2024 Months from CAR T-cell therapy 6 8 10 12 Approximate month & year 10/2024 Inactivated influenza vaccine every Fall Allogeneic Prevnar1 Hib2 Tdap3 Twinrix4 Polio6 Prevnar Hib Td7 Twinrix Polio Prevnar Hib Td Polio MenB8 MenACWY9 Crzlmwul67 MenB MenACWY Twinrix Shingrix 1Prevnar = 20-valent [...] is ? 50 years documented in this encounterSelect [facility]07-11-2024 NoteB[facility]07-[facility] History of Present illness Narrative* Dylan [...] Polio Prevnar Hib Td Polio MenB8 MenACWY9 Ohjufovp59 MenB MenACWY Twinrix Shingrix 1Prevnar = 20-valent [...] 2024 TIME: 9:21 AM documented in this encounterSelect [facility]07-[facility]-2024 History of Present illness Narrative* Esther Rivera [...] 07, 2024 TIME: 12:06 PM * Ivania Juarez, RT(R) - 05/07/2024 12:00 PM EDT RADIOLOGY SERVICE PROGRESS NOTE SERVICE DATE: 05/07/2024 SERVICE TIME: 12:18 PM PATIENT IDENTITY VERIFICATION COMPLETED USING TWO (2) STANDARD IDENTIFIERS: Name and Date of confirmed by patient verbally POST EXAM PIV STATUS: Discontinued PROCEDURE TYPE: NM INJECT: PET/CT BODY SCAN. 10.1 mCi F18 FDG. No other medications given.. ADMINISTRATION TIME: 1206 PATIENT DISCHARGED TO: Ambulatory patient, left [place] department area. A Diagnostic radioactive procedure has taken place, with no further precautions necessary other than routine body substance precautions. More information regarding radiation safety can be found usingthis link: [email or web address] SIGNATURE: RT Kerwin(R) PATIENT NAME: Katia Shaikh DATE: May 07, 2024 TIME: 12:18 PM PAGER/CONTACT #: documented in this encounterSelect Medical Specialty [facility]07-05-2024 NoteB[facility]07-05-2024 NoteB[facility]07-01-2024 Telephone encounter Note* Telephone Encounter - [...] up on 05/[address] Galdamez. Katia W Kaushik verbalizes understanding of weekly lab draws and the [facility] call procedure. Danielle Lazaro RN [facility]07-01-2024 Miscellaneous Notes* Telephone Encounter - Danielle Lazaro [...] understanding of weekly lab draws and the [facility] call procedure. Danielle Lazaro RN documented in this encounterSelect Medical Specialty [facility]06-28-2024 Telephone encounter Note * Telephone Encounter - Danielle Lazaro RN - 04/30/2024 2:17 PM EDT 1340: Spoke with Jennifer, patient's spouse about lab work needed. Patient's spouse was not aware of lab work needed weekly. RN advised that standing lab work is in the system and they can go to the local [facility] to have the labs drawn. RN advised that they will need them the following week as well. She verbalized understanding. Danielle Lazaro RN [facility]06-28-2024 Miscellaneous Notes* Telephone Encounter - Danielle Lazaro RN - 04/30/2024 2:17 PM EDT 1340: Spoke with Jennifer, patient's spouse about lab work needed. Patient's spouse was not aware of lab work needed weekly. RN advised that standing lab work is in the system and they can go to the local [facility] to have the labs drawn. RN advised that they will need them the following week as well. She verbalized understanding. Danielle Lazaro RN documented in this encounterSelect Medical Specialty [facility]06-21-2024 Instructions* Patient Instructions* Nabila Chery APRN.CNP - 04/23/2024 9:14 AM EDT - labs weekly locally until you see Dr. Galdamez for your 30-day follow-up visit. Obtain blood work earlier in the week (Friday or Friday) each week. You do not need to get blood work the week you arehere for your 30-day follow-up (we will obtain blood work at our lab here that day). documented in this encounterSelect Medical Specialty [facility]06-21-2024 History of Present illness Narrative* Nabila Chery [...] example Our national bird is the bald pechanga. 1-YES 10. Count backwards from 100 by 10's 1-YES NEUROLOGICAL ASSESSMENT SCORE: 10 = No impairment CRS Grading No CRS ICANS Grading Grade 0 (No Abnormality) CRS & ICANS Scoring Reference Document Labs: Latest Ref Rn 04/23/2024 Protein, Total 6.3 - 8.0 g/dL [...] 400mg BID for 6 months - Bactrim M-W- - IVIG as needed At risk for electrolyte and fluid disorder - Estimated Creatinine Clearance: 85.4 mL/min (based on SCr of 0.89 mg/dL). - encouraged patient to drink 2 liter caffeine free fluids daily - continue to monitor and supplement as needed I spent a total of 40 minutes on the date of the service which included preparing to see the patient, [id number] patient care, completing clinical documentation, obtaining and/or [...] needed Nabila Chery APRN.MIRACLE documented in this encounterSelect Medical Specialty [facility]06-21-2024 NoteB[facility]06-[facility] Nurse Note* Kaden Brizuela LPN - 04/23/2024 8:53 AM EDT Additional intake questions: Has the patient had fever, nausea, vomiting, diarrhea, constipation, fatigue for > 1 week? No Does the patient have a decreased appetite? No Does patient want to see a Horticulturalist? No (yes to any of above refer [...] Center Electronically Signed By: Kaden Brizuela LPN [facility]06-21-2024 Nurse Note* Kaden Brizuela LPN - 04/23/2024 8:53 AM EDT Additional intake questions: Has the patient had fever, nausea, vomiting, diarrhea, constipation, fatigue for > 1 week? No Does the patient have a decreased appetite? No Does patient want to see a Horticulturalist? No (yes to any of above refer [...] By: Kaden Brizuela LPN documented in this encounterSelect Medical Specialty [facility]06-15-2024 NoteB[facility]06-14-2024 NoteB[facility]06-14-2024 NoteB[facility]06-13-2024 NoteB[facility]06-13-2024 Note [facility] [facility]12[facility]24 Telephone encounter Note* Telephone Encounter - Cecil Esquivel MD - 04/14/2024 6:41 PM EDT [facility] Hematology/Oncology Fellow After Hours Phone Call Heme/onc [...] MD Hematology/Oncology Fellow PGY-4 04/14/2024 6:41 PM [facility] Work Phone: 1(619) 293-656106-12-2024 Miscellaneous Notes* Telephone Encounter - Cecil Esquivel MD - 04/14/2024 6:41 PM EDT [facility] Hematology/Oncology Fellow After Hours Phone Call Heme/onc [...] PGY-4 04/14/2024 6:41 PM documented in this encounterSelect [facility]12[facility]24 [facility]11[facility]2024 [facility]10-2024 [facility]24 [facility]09[facility]2024 [facility]-2024 [facility] 04-11-2024 NoteHNO ID: [id number] Author: NOTE, INTERFACE, ? Service: ? Author Type: ? Type: Progress Notes Filed: 04/11/2024 02:38 Note Text: Epic Scheduled Downtime: 04/11/2024 1:00:00 AM to 04/11/2024 2:26:00 [facility]06-08-2024 [facility]-2024 NoteHNO ID: [id number] Author: NOTE, INTERFACE, ? Service: ? Author Type: ? Type: Progress Notes Filed: 04/10/2024 03:23 Note Text: Epic Scheduled Downtime: 04/10/2024 1:00:00 AM to 04/10/2024 3:02:00 [facility]06-07-2024 [facility]06-2024 [facility]06-2024 [facility]-05-2024 [facility] 04-06-2024 [facility]05-30-2024 History of Present illness Narrative* Niesha Galdamez MD - 04/01/2024 9:30 AM EDT Images from the original note were not included. [facility] DEPARTMENT OF HEMATOLOGY AND MEDICAL ONCOLOGY DIAGNOSIS: [...] read as DLBCL at [facility]. 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 PHYSICAL EXAM: VS: BP 126/67 Pulse 73 [...] Neut (k/uL) Date Value 03/09/2024 5.36 Abs Zapata (k/uL) Date Value 03/09/2024 1.06 (H) Abs [...] and incisional biopsy was read asDLBCL at [facility] but when reviewed by [facility] [...] DC. Niesha Galdamez MD Associate Staff Physician [facility] Cancer [address], [facility] [place] [address] Pager: [phone] Date: April 01, 2024 documented in this encounterSelect [facility]05-30-2024 NoteB[facility]05-30-2024 Nurse Note* Dunia Gipson OCCA - 04/01/2024 9:18 AM EDT Additional intake questions: Has the patient had fever, nausea, vomiting, diarrhea, constipation, fatigue for > 1 week? No Does the patient have a decreased appetite? No Does patient want to see a Horticulturalist? No (yes to any of above refer patient to schedulers for dietitian appointment) ) Does patient have any new or increased numbness or tingling of extremities? No Is patient interested in fertility information? No Does patient need any prescription refills? No Does patient have an advanced directive in place? No [facility]05-30-2024 Nurse Note* Dunia Gipson OCCA - 04/01/2024 9:18 AM EDT Additional intake questions: Has the patient had fever, nausea, vomiting, diarrhea, constipation, fatigue for > 1 week? No Does the patient have a decreased appetite? No Does patient want to see a Horticulturalist? No (yes to any of above refer patient to schedulers for dietitian appointment) ) Does patient have any new or increased numbness or tingling of extremities? No Is patient interested in fertility information? No Does patient need any prescription refills? No Does patient have an advanced directive in place? No documented in this encounterSelect [facility]05-24-2024 History of Present illness Narrative* Priyanka Echols [facility] - 03/26/2024 12:42 PM EDT Images from the original note were not included. [facility] Department of Pharmacy Pharmacy Office Visit Chimeric [...] 0.9 03/09/2024 Abs Neut 5.36 03/09/2024 Abs Zapata 1.06 03/09/2024 Abs Eosin 0.38 03/09/2024 Abs [...] the care of this patient. Priyanka Echols [facility] Pager: [phone] March 26, 2024 12:42 PM documented in this encounterSelect Medical [facility]05-24-2024 NoteBrec[facility]05-23-[facility]24 History of Present illness Narrative* Ivania Juarez, RT(R) - 03/25/2024 12:15 PM EDT RADIOLOGY SERVICE PROGRESS NOTE SERVICE DATE: 03/25/2024 SERVICE TIME: 2:01 PM PATIENT IDENTITY VERIFICATION COMPLETED USING TWO (2) STANDARD IDENTIFIERS: Name and Date of confirmed by patient verbally POST EXAM PIV STATUS: Discontinued PROCEDURE TYPE: NM INJECT: PET/CT BODY SCAN. 9.4 mCi F18 FDG. No other medications given.. ADMINISTRATION TIME: 1228 PATIENT DISCHARGED TO: Ambulatory patient, left NE department area. A Diagnostic radioactive procedure has taken place, with no further precautions necessary other than routine body substance precautions. More information regarding radiation safety can be found usingthis link: [email or web address] SIGNATURE: Ivania Juarez RT(R) PATIENT NAME: Katia Shaikh DATE: March 25, 2024 TIME: 2:01 PM PAGER/CONTACT #: documented in this encounterSelect Medical Specialty [facility]05-23-2024 NoteBrec[facility]05-20-2024 History of Present illness Narrative* Tristen [...] cell. Tristen Varela MD documented in this encounterSelect Medical Specialty [facility]05-20-2024 NoteBrecksville [facility]05-20-2024 History of Present illness Narrative* Tristen Varela MD - 03/22/2024 12:00 AM EDT [facility] Radiation Oncology Department RADIATION ONCOLOGY - COMPLETION [...] Staff Physician Mario Alberto Varela M.D. / LORIE 44:01 PM Electronically Signed cc: Dr.Murphy Dr. Emelia Gonzalez ([facility] [place]), Dr. Niesha Galdamez documented in this encounterSelect Medical Specialty [facility]05-20-2024 NoteB[facility]05-17-2024 NoteB[facility]05-17-2024 History of Present illness Narrative* Merced Gregorio LSW - 03/19/2024 3:57 PM EDT Patient appears on the [facility] First Time Radiation Treatment Report. Patient was assessed by FREDA Quiroz on 02/24/24. FREDA Sanchez-Elias Goals of Care Advance Directives are not on file. SIGNATURE: CURTIS Sanchez PATIENT NAME: Katia Shaikh DATE: March 19, 2024 TIME: 3:59 PM PAGER/CONTACT #: documented in this encounterSelect Medical Specialty [facility]05-14-2024 [facility]05-14-2024 History of Present illness Narrative* Tristen Varela [...] prescribed. Tristen Varela MD documented in this encounterSelect Medical Specialty [facility]05-13-2024 NoteBrecksville [facility]05-13-2024 History of Present illness Narrative* Tristen [...] large B-cell lymphoma however on review at [facility] felt to raul follicular grade 3 nontoxic follow-up. He underwent evaluation including referral to Dr. Castaneda, [facility]. Bendamustine plus Rituxan recommended. Patient started [...] symptomatic improvement. He has been evaluated at [facility] with Dr. Castaneda, plan to proceed [...] AND PLAN: Quite some cancer hours from [place] and [employer] in the morning makes this order so [...] whose address you want to display, e.g., .[employer][1(where 1 is the provider ID). Niesha Galdamez [address] [facility] [id number] documented in this encounterSelect Medical Specialty [facility]05-13-2024 Nurse Note* Sandra Mayen RN - 03/15/2024 7:42 AM EDT Pacemaker/Defibrillator? No Previous Cancer(s)? No Previous Radiation? No Lupus/Scleroderma? No On body monitoring device? No Sandra Mayen RN [facility]05-13-2024 Nurse Note* Sandra Mayen RN - 03/15/2024 7:42 AM EDT Pacemaker/Defibrillator? No Previous Cancer(s)? No Previous Radiation? No Lupus/Scleroderma? No On body monitoring device? No Sandra Mayen RN documented in this encounterSelect Medical [facility]ty [facility]05-13-2024 History of Present illness Narrative* Tristen Varela MD - 03/15/2024 12:00 AM EDT KATIA SHAIKH Mk [id number] 03/15/2024 [facility] Radiation Oncology Department SIMULATION NOTE DATE OF SIMULATION: 03/15/2024 THERAPIST: Jaqueline Pollockaine MACHINE: Onavo DIAGNOSIS: Follicular lymphoma grade IIIa, lymph nodes [...] / YONAS 44:21 PM documented in this encounterSelect Medical Specialty [facility]05-13-2024 History of Present illness Narrative* Tristen Varela MD - 03/15/2024 12:00 AM EDT KATIA SHAIKH [id number] 03/15/2024 [facility] Department of Radiation Oncology Treatment Planning Note [...] Varela M.D. 49:31 AM documented in this encounterSelect Medical Specialty [facility]05-13-2024 NoteBrec[facility]ville [facility]05-13-2024 NoteB[facility]05-11-2024 Telephone encounter Note* Telephone Encounter - Tabitha Albarran MD - 03/13/2024 11:32 AM EDT Patient calling with new onset unilateral (right) leg swelling. Advised to go to ED for DVT evaluation. Discussed risks delay in diagnosis of potential DVT (risk of PE). Tabitha Montana MD Hematology-Oncology Fellow Phone/Pager: [phone] Page me [facility] Work Phone: 1(322) 724-737605-11-2024 Miscellaneous Notes* Telephone Encounter - Tabitha Albarran MD - 03/13/2024 11:32 AM EDT Patient calling with new onset unilateral (right) leg swelling. Advised to go to ED for DVT evaluation. Discussed risks delay in diagnosis of potential DVT (risk of PE). Tabitha Montana MD Hematology-Oncology Fellow Phone/Pager: [phone] Page me documented in this encounterSelect Medical Specialty [facility]05-08-2024 Telephone encounter Note * Telephone Encounter - [...] Altman RN March 10, 2024 4:18 PM [facility] Work Phone: [phone]) 790-579905-08-2024 Miscellaneous Notes* Telephone Encounter - Noah Altman [...] 10, 2024 4:18 PM documented in this encounterSelect Medical Specialty [facility]05-07-2024 NoteBrecksville [facility]05-07-2024 History of Present illness Narrative* Noah [...] Change to Band-Aid in am. Call tomorrow [phone] to report progress. Report any concerns and/or go to the emergencyroom. Do not get it wet for one week (such as taking showers or swimming), avoid heavy exertion (including weight training exercises) for same period. Ambulatory patient. SIGNATURE: Noah Altman RN PATIENT NAME: Katia Shaikh DATE: March 09, 2024 TIME: 1:55 PM PAGER/CONTACT #: [phone] * Noah Altman RN - 03/09/2024 10:48 AM EDT APHERESIS MNC COLLECTION FOR IMMUNE EFFECTOR CELL THERAPY : 1955 Age:[age] year old Gender: male BP 120/77 Pulse 92 Temp 36.7 C (98.1 F) (Oral) Resp 18 Ht 180.1 cm (5' 10.91 ) Wt 82.1 kg(181 lb) BMI 25.31 kg/m Start Procedure Time: 09:19 Day: 1 Procedure: MNC Collection for IEC [facility] Vendor ID: [id number] Protocol: N/A Physician: Dr. Galdamez BMT Coordinator: [...] for anticoagulation during collection NSS lot # [id number] NSS expiration ACD lot # [id number] ACD expiration Apr 27 Machine Information Machine Optia # 6 cMNC Machine Clean vv Alarm Check vv Kit lot # [id number] Kit expiration 2025-11-03 Anticoagulant Connection Adapter Lot # [id number] Anticoagulant Connection Adapter Expiration Date 2025-08-03 Blood warmer # 6 Blood warmer tubing lot# [id number] Blood warmer tubing expiration 2025-06-04 Blood warmer temperature: 40.8 C Patient's Total Blood Volume 5309 ml Processed: 2.8 blood volumes = 69424 ml Collected 208 ml product. AC Ratio: 12:1 AC in Product: 26 Product labeled per protocol. Product picked up by : Tube Repairer Upon completion: Temp 98.2 F oral, Pulse 93, BP 124/73, Resp 18/min Red and Blue port caps changed. Flushed Red with 10 ml NSS and White with 10 ml NSS. Dressing N/A, central line remove after the procedure. Procedure tolerated well. Patient discharged ambulatory. Patient collection completed Procedure end time: 13:01 Noah Altman RN [facility] [place] APHERESIS ROSENDO NOTE OF PERSONAL INVOLVEMENT IN [...] procedure well. Faisal Blanco PA-C 03/09/24 Pager: [phone] documented in this encounterSelect Medical Specialty [facility]05-07-2024 Nurse Note* Noah Altman RN - 03/09/2024 [...] By Noah Altman RN in Department: HEMATOLOGY/ONCOLOGY [facility]05-07-2024 Nurse Note* Noah Altman RN - 03/09/2024 [...] RN in Department: HEMATOLOGY/ONCOLOGY documented in this encounterSelect Medical Specialty [facility]05-07-2024 NoteB[facility]05-07-2024 NoteB[facility]05-07-2024 History of Present illness Narrative* Niesha Galdamez MD - 03/09/2024 10:30 AM EDT Images from the original note were not included. [facility] DEPARTMENT OF HEMATOLOGY AND MEDICAL ONCOLOGY DIAGNOSIS: [...] read as DLBCL at [facility]. 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 PHYSICAL EXAM: VS: BP 130/76 Pulse 91 [...] Neut (k/uL) Date Value 03/09/2024 5.36 Abs Zapata (k/uL) Date Value 03/09/2024 1.06 (H) Abs [...] and incisional biopsy was read asDLBCL at [facility] but when reviewed by [facility] [...] plan. Niesha Galdamez MD Associate Staff Physician [facility] [address], [place] [place] [address] Pager: [phone] documented in this encounterSelect Medical Specialty [facility]05-07-2024 NoteHNO ID: [id number] Author: RAVEN OBREGON, RN Service: Interventional Radiology Author Type: Registered Nurse Type: Nursing Progress Note Filed: 03/09/2024 08:46 Note Text: Pt sent to [facility] with Port accessed in case they will need to use port. [facility]05-06-20[facility] Nurse Note* Jill Broussard LPN - 03/08/2024 3:33 PM EDT Additional intake questions: Has the patient had fever, nausea, vomiting, diarrhea, constipation, fatigue for > 1 week? No Does the patient have a decreased appetite? No Does patient want to see a Horticulturalist? No (yes to any of above refer patient to schedulers for dietitian appointment) ) Does patient have any new or increased numbness or tingling of extremities? No Is patient interested in fertility information? No Does patient need any prescription refills? No Does patient have an advanced directive in place? No, Patient referred to [facility] Electronically Signed By: Jill Broussard LPN [facility]05-06-2024 Nurse Note* Jill Broussard LPN - 03/08/2024 3:33 PM EDT Additional intake questions: Has the patient had fever, nausea, vomiting, diarrhea, constipation, fatigue for > 1 week? No Does the patient have a decreased appetite? No Does patient want to see a Horticulturalist? No (yes to any of above refer patient to schedulers for dietitian appointment) ) Does patient have any new or increased numbness or tingling of extremities? No Is patient interested in fertility information? No Does patient need any prescription refills? No Does patient have an advanced directive in place? No, Patient referred to [facility] Electronically Signed By: Jill Broussard LPN documented in this encounterSelect Medical Specialty [facility]04-30-2024 Telephone encounter Note * Telephone Encounter - Fiona Greer - 03/02/2024 7:11 AM EDT Patient is scheduled 03/25 at 12:15pm for his PET scan in [place]. Fiona Adams [facility]04-30-2024 Miscellaneous Notes* Telephone Encounter - Fiona Greer - 03/02/2024 7:11 AM EDT Patient is scheduled 03/25 at 12:15pm for his PET scan in [place]. Fiona Adams documented in this encounterSelect Medical Specialty [facility]04-25-2024 Telephone encounter Note * Telephone Encounter - Sepideh Thorpe - 02/26/2024 10:10 AM EDT 1st time treatment report. Patient is active with Medicare A and B, LOC 80%, $240 deductible has $0remaining with no OOP max. Patient has [employer] Medicare SUPPLEMENT as a secondary to picking supervisor all 20% Medicare coins. Patient financial responsibility is $0 for each treatment in 2023.Called the patientto discuss navigator services, Cost Facit Questionnaire completed over the phone. Dx: Diffuse large B cell lymphoma C83.38 // DxDate: 02/18/2024 // Physician: Niesha Galdamez MD [id number]. [facility] Work Phone: 1(654) 627-155704-25-2024 Miscellaneous Notes* Telephone Encounter - Sepideh Thorpe - 02/26/2024 10:10 AM EDT 1st time treatment report. Patient is active with Medicare A and B, LOC 80%, $240 deductible has $0remaining with no OOP max. Patient has [employer] Medicare SUPPLEMENT as a secondary to picking supervisor all 20% Medicare coins. Patient financial responsibility is $0 for each treatment in 2023.Called the patientto discuss navigator services, Cost Facit Questionnaire completed over the phone. Dx: Diffuse large B cell lymphoma C83.38 // DxDate: 02/18/2024 // Physician: Niesha Galdamez MD [id number]. documented in this encounterSelect Medical Specialty [facility]04-24-2024 Telephone encounter Note * Telephone Encounter - [...] post-transplant medications. SW reached out to BMT AR for additional assistance. Jennifer reported they have been concerned about the financial stress of travel and lodging expenses. SW made a referral to the [facility] financial navigators for assistance with S grants. She reported her and Roverto have been feeling frustrated and overwhelmed with upcoming medical appointments. SW provided validation and emotional support. SW to follow. FREDA Cottrell [facility] Work Phone: [phone] Miscellaneous Notes* Telephone Encounter - Krystyna Hernandez [...] post-transplant medications. SW reached out to BMT AR for additional assistance. Jennifer reported they have been concerned about the financial stress of travel and lodging expenses. SW made a referral to the [facility] financial navigators for assistance with S grants. She reported her and Roverto have been feeling frustrated and overwhelmed with upcoming medical appointments. SW provided validation and emotional support. SW to follow. FREDA Cottrell documented in this encounterSelect Medical Specialty [facility]04-23-2024 History of Present illness Narrative* Krystyna Hernandez LISW - 02/24/2024 12:50 PM EDT PSYCHOSOCIAL ASSESSMENT BLOOD AND MARROW TRANSPLANT PROGRAM DATE OF ASSESSMENT:02/25/24 Psychosocial Assessment of Candidates for Transplantation (PACT) Score: 3 - good transplant candidate DATA: Katia Shaikh is a 68 year old male who is planning on undergoing an Chimeric Antigen Receptor (CAR) T-cell therapy. His oncologist at [facility] is Dr. Galdamez. Katia Shaikh was diagnosed [...] . HOME ENVIRONMENT: Katia Shaikh resides at [address] [place] [address] with his , Jennifer (about an hour and 15 minutes from [facility] Main). Katia Shaikh has access to a [...] support; he does not affiliate with a restorationist. 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 It was explained that the average Chimeric Antigen Receptor (CAR) T-cell therapy patient is disabled 3 months. Jennifer is retired and worked in a hospital as an x-ray tech for 23 years. MENTAL HEALTH HISTORY: Katia Shaikh states that he has no current or history of mental healthneeds or treatment. Katia Shaikh has no history [...] Shaikh's health insurance is Medicare and Medicare [employer]. He has a pharmacy benefit and has affordable co-pays. Katia Shaikh is not registered with The [employer] Co- Pay Assistance Program. He has not received additional [facility] grants. He will not be referred to the [facility] Financial Navigators for enrollment. Katia Shaikh does not express financial concerns. He was provided with information about discounted parking at [facility]. He does not qualify for parking assistance and was referred to the [facility] Patient Power Reactor Operator for assistance. INTERESTS: Katia Shaikh enjoys car racing with his son and riding his motorcycle. ADVANCE CARE PLANNING: Katia Shaikh states that he does not have a living will; Provided education on their right to complete AD documents. . he does not have a power of post manager for health care; Provided education on their [...] tab: Yes FREDA Cottrell documented in this encounterSelect Medical Specialty [facility]04-23-2024 NoteBrec[facility]ville [facility]04-23-2024 NoteB[facility]04-23-2024 History of Present illness Narrative* Radha [...] discharge requirements including follow up appointment at [facility] within 5 business days of discharge, physician appointment at 1 month, 2 months and 100 days post discharge. Also explained the possibility that the patient would need to follow in [place] more often if necessary. Reinforced that it is required to have a 24/7 caregiver for 4 weeks post infusion, that driving or operating heavy machinery for 8 weeks post infusion is prohibited, and that they must stay within 2 hours of [facility] for 4 weeks post infusion. Reviewed allergies [...] Work Radha Peng RN documented in this encounterSelect Medical Specialty Hospital [facility]04-22-2024 NoteBrecksville [facility]04-22-2024 History of Present illness Narrative* Krystyna Hernandez LISW - 02/23/2024 11:21 AM EDT SOCIAL WORK PROGRESS NOTE Name: Katia Shaikh Pre-cell infusion assessment chart review. SW is scheduled to meet with Mr. Shaikh on 02/24/24 for an assessment for CAR T-Cell Therapy. SW reviewed chart and prepared documentation for appointment. SW to follow. Signature: FERDA Cottrell Date: February 23, 2024 Time: 11:21 AM documented in this encounterSelect Medical Specialty [facility]04-17-2024 Miscellaneous Notes* Telephone Encounter - Elizabeth Nice [...] back to us. Initial/Subsequent: Subsequent Treatment Strategy: 006 PET Protocol: Top Of Ear To Proximal Thigh Diagnostic Imaging Requested: No Is this a Pretreatment and/or an initial Pet scan: No - Schedule as requested Comments for [employer] Electrician: 03/31/24 ROUTE TO SCHEDULERS POOL P PET OBJECT ORIENTED PROGRAMMER or P [place] SPECIAL STUDIES * Telephone Encounter - Elena Rosenthal - 02/18/2024 11:01 AM EDT This form is used for MAIN CAMPUS APPOINTMENTS ONLY. Is this request for a Main [place] PET scan appointment? Yes: Workers Compensation Analyst: Elena Kim Requesting Person (Paula Martins): 83448 Area Code + Phone/Pager: [phone] Who do we call to schedule this appointment? Requestor Requesting Staff 52524 Area Code + Phone/Pager: N/A PET Orders [...] patient need anesthesia? NO Send requests to Raquel KIM REVIEW documented in this encounterSelect Medical [facility]04-17-2024 Instructions* Patient Instructions* Radha Peng, STEVE - 02/18/2024 9:45 AM EDT PROTOCOL: CAR [...] see orders J1-4 02/23 Echo LVEF x [id number] 1 hr J1-5 02/[address] scans - [...] Admission Interview J1-1 04/06 documented in this encounterSelect Medical Specialty Hospital [facility]04-17-2024 Miscellaneous Notes* Telephone Encounter - Radha Peng RN - 02/18/2024 9:26 AM EDT CAR T-cell Initial Telephone Contact Spoke with Katia Shaikh on the telephone on 02/18/2024 at 0915 regarding CAR T-Cell Therapy / [employer]. Discussed evaluation testing required, including bone marrow biopsy, for which a dedicated intermodal truck driver is required. Once resulted, all staging results and requested information will be sent to insurance company forapproval. Reviewed generic calendar outlining the CAR-T process. Reviewed that prior to leukapheresis, patient will need to have a temporary catheter placed in Interventional Radiology. Discussed process of collecting/processing T cells, including 1 day of Apheresis, cells being sent to [facility] and engineered into CAR-T cells. Explained that [...] to be inserted prior to admission to [facility], and that patient will receive the Car-T [...] is calling Niesha Galdamez MD today regarding National Secretary - Other (Next Steps) Patient requesting call back to go over next steps and what to expect next. Requesting response back: [phone] (cell) Duration of symptoms: N/A Patient has been identified by name and birthdate. Pretty Jimenez February 18, 2024 documented in this encounterSelect Medical Specialty Hospital [facility]04-11-2024 History of Present illness Narrative* Niesha Galdamez MD - 02/12/2024 11:00 AM EDT Images from the original note were not included. [facility] DEPARTMENT OF HEMATOLOGY AND MEDICAL ONCOLOGY DIAGNOSIS: [...] read as DLBCL at [facility]. 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 PHYSICAL EXAM: VS: BP 133/72 Pulse 75 [...] Neut (k/uL) Date Value 12/25/2023 3.66 Abs Zapata (k/uL) Date Value 12/25/2023 1.06 (H) Abs [...] read as DLBCL at [facility] but when reviewed by [facility] [...] complete. Niesha Galdamez MD Associate Staff Physician [facility] [address] [place] [address] Pager: [phone] documented in this encounterSelect Medical Specialty Hospital [facility]04-11-2024 [facility]04-11-2024 Nurse Note* Wallace Tolentino LPN - 02/12/2024 10:55 AM EDT Additional intake questions: Has the patient had fever, nausea, vomiting, diarrhea, constipation, fatigue for > 1 week? No Does the patient have a decreased appetite? No Does patient want to see a Horticulturalist? No (yes to any of above refer patient to schedulers for dietitian appointment) ) Does patient have any new or increased numbness or tingling of extremities? No Is patient interested in fertility information? No Does patient need any prescription refills? No Does patient have an advanced directive in place? No Electronically Signed By: Wallace Tolentino LPN documented in this encounterSelect Medical Specialty Hospital - [facility]04-01-2024 [facility]Brec[facility]04-01-[facility]24 History of Present illness Narrative* Brit Arzola MA - 02/02/2024 4:05 PM EDT POPULATION HEALTH NAVIGATION OUTREACH Action/FYI PCP is EMELIA GONZALEZ MD [facility] Everywhere PCP field updated Reason for Outreach Care Gap/HCC or Scheduling Wellness Visits Care Gaps due: Establish Care Appointment Patient Contacted: Unable or unnecessary to reach patient: PCP field updated Navigation Signature: Brit Arzola MA February 02, 2024 4:05 PM documented in this encounterSelect Medical Specialty Hospital [facility]04-01-2024 NoteBrecksville [facility]04-01-2024 History of Present illness Narrative* Michael Boykin MD - 02/02/2024 6:25 AM EDT PATIENT NAME: Katia Shaikh DATE: 02/02/2024 PRIMARY CARE PHYSICIAN: No PCP OTHER PHYSICIANS: Dr. Rivera, Dr. Emelia Gonzalez ([facility] [place] [facility] [place]), Dr. Niesha Galdamez Portions of this encounter note have been copied from the note from 01/12/2024 and has been updated where appropriate, and reflect my current medical decision making from today. CC: This is a 68 year old male with recurrent lymphoma, seen for scheduled follow-up. INTERIM HISTORY: Since the patient's last visit here he followed up with the [facility] lymphoma group (Dr. Galdamez) and temporary plans [...] PATHOLOGY: 12/17/2023 Right inguinal lymph node biopsy ([facility]) [facility]: Mature B-cell non-Hodgkin lymphoma [facility] Pathology:-Aggressive large B-cell lymphoma, favor germinal center immunophenotype 05/07/2023 Right inguinal lymph node biopsy [facility]: Diffuse large B-cell lymphoma [facility] Pathology: [...] Criteria score : 4 04/24/2023 PET scan ([facility]) Above the diaphragm the patient has [...] of a right inguinal lymph node at [facility]. Initial pathology per [facility] consistent with diffuse large B-cell lymphoma. 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 Hewas seen by Dr. Galdamez at [facility], and recommendations were to proceed [...] excisional biopsy of the right inguinal node. [facility] pathology confirmed aggressive large B-cell lymphoma, favor [...] is scheduled to see Dr. Galdamez at [facility] on 02/12/2024 at which time [...] indicated. Michael Boykin MD documented in this encounterSelect Medical Specialty Hospital [facility]03-29-2024 History of Present illness Narrative* Margie See [...] PATIENT PRESENTS WITH AN IMPLANTABLE OR ATTACHED EPIC MANAGER: No IV SITE: lt hand POST EXAM PIV STATUS: Discontinued PROCEDURE TYPE: NM INJECT: PET/CT BODY SCAN. 9.9 mCi F18 FDG. No other medications given.. ADMINISTRATION TIME: 1340 PATIENT DISCHARGED TO: Ambulatory patient, left NE department area. A Diagnostic radioactive procedure has taken place, with no further precautions necessary other than routine body substance precautions. More information regarding radiation safety can be found usingthis link: [email or web address] SIGNATURE: RT Errol(R) PATIENT NAME: Katia Shaikh DATE: January 30, 2024 TIME: 1:51 PM PAGER/CONTACT #: documented in this encounterSelect Medical Specialty Hospital - [facility]03-29-2024 NoteBrecksville [facility]03-29-2024 NoteBrecksville [facility]03-27-2024 History of Present illness Narrative* Dmitry [...] Diagnosis: DLBCL likely transformed from [place] Path: HORSE RACER GCB ; Ki-67 70-80%; No MYC/BCL2 double expression; FISH positive BCL6; CD5 negative NCCN-IPI: Pending Age 60-75 (2) and LDH >1-3x ULN (1); Low-intermediate (2-3); 5yr PFS 74%, OS 82% FOOD TECHNICIAN-IPI: Pending Age >60 and LDH elevated; Intermediate [...] in March [address] [facility] who sought second opinion at [facility] where Pathology rendered diagnosis of FL grade [...] notes, intends to continue following with at [facility], who has recommended CAR-T therapy. We discussed that his overall picture is potentially consistent with a late relapse of DLBCL vs a de josse DLBCL in the setting of [place]. There was discrepancy regarding his diagnosis last March, initiallybeing DLBCL then changed to [place] 3A per [facility] Path review. He has now received BR [...] 9 months in a retrospective study (Jacqueline Michelle, J Clin Oncol. 2023;42(2):205-217) and it would [...] Cici Mora MD Hematology/Medical Oncology Fellow Pager [phone] HISTORY OF PRESENT ILLNESS: See Oncology History [...] in March [address] [facility] who sought second opinion at [facility] where Pathology changed the diagnosis of DLBCL [...] to continue following with Dr. Castaneda at [facility], who has recommended CAR-T therapy. 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 BR x6 cycles was recommended, completed in 10/2023. EOT PET demonstrated significant improvement and resolution in most areas of prior involvement, but persistent FDG avidity in the right inguinal LN. He underwent an excisional LN biopsy which demonstrated DLBCL ([facility] pathology). We reviewed his clinical course and [...] to proceed with CD19.CAR-T cell therapy at [facility]. A PET scan is planned for 01/30/24 [...] the discharge instructions. Dorcas Bolanos MD, MSCR Behavioral Health Director - Division of Hematology [facility] documented in this encounterHighland [facility]03-27-2024 Instructions* Patient Instructions* Chioma Austin RN - 01/28/2024 10:[address] Bolanos Clinic Orientation Thank you for entrusting your care to us at [facility]. Our clinic specifically focuses on the [...] Bakari Bolanos MD, MSCR: physician Patti Isidro, HOGSHEAD STOCK CLERK: nurse practitioner Chana Brown, HOGSHEAD STOCK CLERK: nurse practitioner Danielle Yates, RN: clinic nurse Chioma Austin, RN: clinic nurse Kelsy Gage, RN: Patient Care Marine Service Operator Brian Hilliard MS, RD: hat mender Eliazar Reeder [facility] & Brittani Redmond [facility]: Pharmacists Custom Feed Mill Operator Helper [facility] is a teaching institution; you may [...] we will contact you via phone or Quotify Technologyhart. With rare exception, we schedule visits shortly [...] please call the nurse triage line at [phone] (open 26/05). Nurse Triage . For non-urgent matters or general questions, we prefer that you write them down so that we can address them in person at our next visit. If you feel that your question needs to be addressed prior to your next visit, please call nurse triage ([phone]) or send a message in Playspace. If you need medication refills for drugs that we have prescribed you, it is best to let us know during your office visit. If you need a refill before your next visit, please send a message via Playspace. Please alert us at least 7 days [...] completed (to you, your employer, etc). [facility] MyChart: The medical information you will have access to within the My Chart program is limited (basic laboratory results, summary of medical history, visit history, and selected billing information). If you need results of a test that you can't find within joblocalt, please feel free to call us and we will get back to you with that information. Please allow 24-48 hours for a response when using My Chart. Please do not use My Chart for urgent needs. The best way to communicate urgent needs is by calling the nurse triage line. [employer]: Each year, I ride 50+ miles for cancer research. This is a bike ride in [place] - 100% of every donation is invested at [facility] for innovative cancer research. Please see my rider profile: [email or web address] Results for orders placed or performed in [...] Male 75 >=60 mL/min/1.73m2 documented in this encounterU [facility]03-26-2024 Miscellaneous Notes* Telephone Encounter - Radha Peng RN - 01/27/2024 3:06 PM EDT Attempted to contact patient to discuss CAR-T therapy. No answer, message left and contact information provided. Radha Peng RN January 27, 2024 3:07 PM documented in this encounterSelect Medical Specialty Hospital [facility]03-18-2024 NoteBrecksville [facility]03-15-2024 NoteBrecksville [facility]03-15-2024 History of Present illness Narrative* Niesha Galdamez MD - 01/16/2024 8:04 AM EDT Images from the original note were not included. [facility] DEPARTMENT OF HEMATOLOGY AND MEDICAL ONCOLOGY [place] [...] this visit. Katia Shaikh or their legal premium representative has been informed of the risks [...] read as DLBCL at [facility]. 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 PHYSICAL EXAM: None- audio only DATA REVIEWED: [...] will order PET/CT to be done at [facility]. Niesha Galdamez MD Associate Staff Physician [facility] [address] [place] [address] Pager: [phone] documented in this encounterSelect Medical Specialty Hospital [facility]03-13-2024 Miscellaneous Notes* Telephone Encounter - Ivania Jackman [...] noted. Ivania Jackman RN documented in this encounterSelect Medical Specialty Hospital - [facility]03-11-2024 NoteBrecksville [facility]03-11-2024 History of Present illness Narrative* Michael Boykin MD - 01/12/2024 7:17 AM EDT PATIENT NAME: Kaita Shaikh DATE: 01/12/2024 PRIMARY CARE PHYSICIAN: No PCP OTHER PHYSICIANS: Dr. Rivera, Dr. Emelia Gonzalez ([facility] [place]), Dr. Niesha Galdamez Portions of this encounter note have been copied from the note from 12/25/2023 and has been updated where appropriate, and reflect my current medical decision making from today. CC: This is a 68 year old male with recurrent lymphoma, seen for scheduled follow-up. INTERIM HISTORY: Since the patient's last visit here his right inguinal lymph node biopsy was reviewed by [facility] pathology. The diagnosis of aggressive B-cell lymphoma was confirmed. He was by Dr. Niesha Galdamez at [facility] for recommendations concerning treatment. Aggressive treatment with [...] PATHOLOGY: 12/17/2023 Right inguinal lymph node biopsy ([facility]) [facility]: Mature B-cell non-Hodgkin lymphoma [facility] Pathology:-Aggressive large B-cell lymphoma, favor germinal center immunophenotype 05/07/2023 Right inguinal lymph node biopsy [facility]: Diffuse large B-cell lymphoma [facility] Pathology: [...] Criteria score : 4 04/24/2023 PET scan ([facility]) Above the diaphragm the patient has [...] of a right inguinal lymph node at [facility]. Initial pathology per [facility] consistent with diffuse large B-cell lymphoma. 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 Hewas seen by Dr. Galdamez at [facility], and recommendations were to proceed [...] excisional biopsy of the right inguinal node. [facility] pathology confirmed aggressive large B-cell lymphoma, favor [...] indicated. Michael Boykin MD documented in this encounterSelect Medical Specialty Hospital [facility]03-04-2024 NoteBrecksville [facility]03-04-2024 History of Present illness Narrative* Niesha Galdamez MD - 01/05/2024 12:45 PM EST Images from the original note were not included. [facility] DEPARTMENT OF HEMATOLOGY AND MEDICAL ONCOLOGY DIAGNOSIS: [...] read as DLBCL at [facility]. 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 PHYSICAL EXAM: VS: BP 139/80 Pulse 93 [...] PATH 12/24/2023 FINAL DIAGNOSIS Outside slides from [facility], [place], [place], labeled [id number], collected 12/17/2023: A-B. Right inguinal lymph node, [...] been determined by the performing laboratory within [facility] [place] ([facility], [facility], [facility], [facility], [place], [facility], [facility], or [facility]) in a manner consistent with CLIA [...] deeper sections of tissue block A5 at [facility]. The lymphoma cells are positive for CD10 [...] read as DLBCL at [facility] but when reviewed by [facility] including the hematopathology cons ensus conference, it was read as [place], grade 3A. I explained this review was released into Playspace and I also provided a copy for [...] decision. Niesha Galdamez MD Associate Staff Physician [facility] [address] [place] [address] Pager: [phone] CC: Michael Boykin ([facility]) [address] [place] [address] [place] [address] . documented in this encounterSelect Medical Specialty Hospital [facility]03-04-2024 Nurse Note* Ru Mcnair MA - 01/05/2024 12:35 PM EST Additional intake questions: Has the patient had fever, nausea, vomiting, diarrhea, constipation, fatigue for > 1 week? Yes, constipation (day of last BM 01/05/24) Does the patient have a decreased appetite? No Does patient want to see a Horticulturalist? No (yes to any of above refer patient to schedulers for dietitian appointment) ) Does patient have any new or increased numbness or tingling of extremities? No Is patient interested in fertility information? No Does patient need any prescription refills? No Does patient have an advanced directive in place? No, Patient referred to [facility] documented in this encounterSelect Medical Specialty Hospital - [facility]02-27-2024 NoteBrecksville [facility]02-27-2024 History of Present illness Narrative* Tristen [...] pathology review [facility]: FINAL DIAGNOSIS Outside slides ([id number], 05/07/2023), [place], [place] Right inguinal lymph node, excisional biopsy: [...] to follow with Dr. Ashutosh Galdamez at [facility] regarding this. Signed by: Tristen Varela MD cc: To use this Smartlink, specify the provider ID whose address you want to display, e.g., .PROVADDR[1(where 1 is the provider ID). Michael Boykin ([facility]) [address] [place] [address] [place] [address] documented in this encounterSelect Medical Specialty Hospital - [facility]02-27-2024 Nurse Note* Jackeline Cunningham LPN - 12/30/2023 11:01 AM EST Pacemaker/Defibrillator?N Previous Cancer(s)?NHL dx'd ~ 22 years ago Previous Radiation?Y -chest 22 years ago Lupus/Scleroderma?N On body monitoring device?N documented in this encounterSelect Medical Specialty Hospital - [facility]02-26-2024 Miscellaneous Notes* Telephone Encounter - Fabi Freed [...] advise and we will call both scheduling [phone] to reschedule and call patient back as well with information regarding this appointment. Thank you for your time and help with getting this patient scheduled. Fabi Wong * Telephone Encounter - Ivania Jackman RN - 12/29/2023 9:45 AM EST Clerical: Pt will need to see Dr Galdamez @ [facility] to discuss potential treatment options. This maybe a virtual visit. Please schedule and contact pt w/ the appointment. Ivania Jackman RN * Telephone Encounter - Ivania Jackman, STEVE - 12/29/2023 9:44 AM EST Images from [...] MD; Niesha Galdamez MD documented in this encounterSelect Medical Specialty Hospital - [facility]02-22-2024 NoteBrecksville [facility]02-22-2024 History of Present illness Narrative* Michael Boykin MD - 12/25/2023 6:19 AM EST PATIENT NAME: Katia Shaikh DATE: 12/25/2023 PRIMARY CARE PHYSICIAN: No PCP OTHER PHYSICIANS: Dr. Rivera, Dr. Emelia Gonzalez ([facility] [place] [facility] [place]), Dr. Niesha Galdamez Portions of this encounter [...] PATHOLOGY: 12/17/2023 Right inguinal lymph node biopsy ([facility]) [facility]: Mature B-cell non-Hodgkin lymphoma [facility] Pathology: Pending 05/07/2023 Right inguinal lymph node biopsy [facility]: Diffuse large B-cell lymphoma [facility] Pathology: [...] Criteria score : 4 04/24/2023 PET scan ([facility]) Above the diaphragm the patient has [...] of a right inguinal lymph node at [facility]. Initial pathology per [facility] consistent with diffuse large B-cell lymphoma. 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 Hewas seen by Dr. Galdamez at [facility], and recommendations were to proceed [...] referred his recent lymph node biopsy to [facility] pathology for their evaluation. If the node is consistent with a follicular lymphoma we will confer with [facility] hematology options for management which would include [...] indicated. Michael Boykin MD documented in this encounterSelect Medical Specialty Hospital - [facility]02-19-2024 Miscellaneous Notes* Telephone Encounter - Fifi Cobos - 12/22/2023 2:49 PM EST Sent for path to be sent. * Telephone Encounter - Ivania Jackman RN - 12/22/2023 2:16 PM EST Pt's lymph node biopsy was positive for NHL B-Cell Lymphoma. Dr Boykin would like pt's path sent [facility] for review. Pt notified of the above and verbalizes understanding. BRM/Clerical: Path Review order pended. Ivania Jackman RN documented in this encounterSelect Medical Specialty Hospital - Cleveland-[facility]02-15-2024 Hospital Discharge instructions Follow Up Care 12/18/2023 10:34:54 With:MIGUEL LOFTON, TERRELL Kirk Address: [address] [place], [place] [id number] When: only if needed General Surgery [facility] 02-12-2024 Miscellaneous Notes* Telephone Encounter - Gretchen Arora - 12/15/2023 2:12 PM EST Roverto is scheduled to have his bx on Fri12-17-23. Rescheduled his follow up with you from 12-16 to 12-25. This is just an FYI. Please let me know if you need to see him prior to his bx. documented in this encounterSelect Medical Specialty Hospital - [facility]02-06-2024 NoteChief Complaint consultation for right inguinal mass [...] - Not Given Patient (more content not included)...[facility] HospitalComment on above:Result Comment: Electronically Signed By: MIGUEL LOFTON, Chiquita Mas\Date and Time Signed: 12/09/23 18:51 [id number] NoteHNO ID: [id number] Author: MARLEE HARPER RN Service: ? Author Type: Registered Nurse Type: Progress Notes Filed: 11/20/2023 13:34 Note Text: Labs drawn on Friday with PET scan, no labs ordered for today and patient will [facility]01[facility]16[facility] History of Present illness Narrative* Esther Rivera [...] 1052 PATIENT DISCHARGED TO: Ambulatory patient, left [place] department area. A Diagnostic radioactive procedure has taken place, with no further precautions necessary other than routine body substance precautions. 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 Would you like labs? 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 A Diagnostic radioactive procedure has taken place, with no further precautions necessary other than routine body substance precautions. 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 Rivera, Dr. Emelia Gonzalez ([facility] [place] [facility] [place]), Dr. Niesha Galdamez Portions of this encounter [...] PATHOLOGY: 05/07/2023 Right inguinal lymph node biopsy [facility]: Diffuse large B-cell lymphoma [facility] Pathology: [...] 09/02/2023 160 RADIOLOGY/OTHER STUDIES: 04/24/2023 PET scan ([employer] Above the diaphragm the patient has significant [...] of a right inguinal lymph node at [facility]. Initial pathology per [facility] consistent with diffuse large B-cell lymphoma. 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 Hewas seen by Dr. Galdamez at [facility], and recommendations were to proceed [...] indicated. 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 Repositioned needles 2 additional times. Clearly felt port wall against needle all 3 times. Mulptiple positions tried to get blood return with no return. Flushing easily; no pain. No swelling at port. Pt can not stay for cathflo today. Peripheral draw performed. 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 Rivera, Dr. Emelia Gonzalez ([facility] [place] [facility] [place]), Dr. Niesha Galdamez Portions of this encounter [...] PATHOLOGY: 05/07/2023 Right inguinal lymph node biopsy [facility]: Diffuse large B-cell lymphoma [facility] Pathology: [...] 07/08/2023 146 RADIOLOGY/OTHER STUDIES: 04/24/2023 PET scan ([employer] Above the diaphragm the patient has significant [...] of a right inguinal lymph node at [facility]. Initial pathology per [facility] consistent with diffuse large B-cell lymphoma. 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 Hewas seen by Dr. Galdamez at [facility], and recommendations were to proceed [...] indicated. 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 Ivania Jackman RN documented in this encounterSelect Medical [facility]08-25-2023 Miscellaneous Notes* Telephone Encounter - Fifi Sommers RN - 06/27/2023 11:43 AM EDT Pt notified that both scripts were sent to [facility]. Pt states he's not sure that the [...] advise Fifi Sommers RN documented in this encounterSelect Medical [facility]08-23-2023 Miscellaneous Notes* Telephone Encounter - Ivania Jackman [...] well. 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) documented in this encounter [facility]-10-2023 Miscellaneous Notes* Telephone Encounter - Fifi Sommers [...] back Fifi Sommers RN documented in this encounterSelect [facility]08-09-2023 Evaluation note* Diagnosis 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 States that he can get them cheaper there using a Good RX coupon. Cleo: Script pended. Ivania Jackman RN documented in this encounterSelect [facility]08-04-2023 Miscellaneous Notes* Telephone Encounter - Ivania Jackman [...] at least 1 month. 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 Ivania Jackman RN documented in this encounterSelect Medical Specialty [facility]08-03-2023 History of Present illness Narrative* Michael Boykin MD - 06/05/2023 8:10 AM EDT PATIENT NAME: Katia Shaikh DATE: 06/05/2023 PRIMARY CARE PHYSICIAN: No PCP OTHER PHYSICIANS: Dr. Rivera, Dr. Emelia Gonzalez ([facility] [place] [facility] [place]), Dr. Niesha Galdamez Portions of this encounter note have been copied from my note from 05/22/2023 and has been updated where appropriate, and reflect my current medical decision making from today. CC: This is a 67 year old male with recurrent lymphoma, seen for scheduled follow-up. INTERIM HISTORY: Since the patient's last visit here his recent lymph node biopsy was reviewed by [facility] pathology, and it was felt to be consistent with follicular grade 3 lymphoma rather than diffuse large B-cell lymphoma. He was seen by Dr. Galdamez at [facility], and recommendations were to proceed [...] PATHOLOGY: 05/07/2023 Right inguinal lymph node biopsy [facility]: Diffuse large B-cell lymphoma [facility] Pathology: [...] 06/05/2023 334 RADIOLOGY/OTHER STUDIES: 04/24/2023 PET scan ([employer] Above the diaphragm the patient has significant [...] of a right inguinal lymph node at [facility]. Initial pathology per [facility] consistent with diffuse large B-cell lymphoma. 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 Hewas seen by Dr. Galdamez at [facility], and recommendations were to proceed [...] MD CC: Dr. Rivera, Dr. 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 No answer to left detailed message. Niesha Galdamez MD Date: June 01, 2023. documented in this encounterSelect Medical Specialty [facility]07-25-2023 Nurse Note* Danielle Lazaro RN - 05/27/2023 2:51 PM EDT Additional intake questions: Has the patient had fever, nausea, vomiting, diarrhea, constipation, fatigue for > 1 week? No Does the patient have a decreased appetite? No Does patient want to see a Horticulturalist? No (yes to any of above refer patient to schedulers for dietitian appointment) ) Does patient have any new or increased numbness or tingling of extremities? No Is patient interested in fertility information? No Does patient need any prescription refills? No Does patient have an advanced directive in place? No, Patient referred to [facility] Electronically Signed By: Danielle Lazaro RN documented in this encounterSelect Medical Specialty [facility]07-25-2023 History of Present illness Narrative* Niesha Galdamez MD - 05/27/2023 2:43 PM EDT Images from the original note were not included. [facility] DEPARTMENT OF HEMATOLOGY AND MEDICAL ONCOLOGY REASON [...] decided to establish with Dr. Boykin at [facility].He does have some fatigue and just minimal weight loss of about five pounds is otherwise feeling well. No fevers, drenching night sweats, unintentional weight loss. No enlarged lymph nodes. PAST MEDICAL HISTORY: DLBCL arising from [place] Hypothyroidism PAST SURGICAL HISTORY: LN biopsy Bronchoscopy Thoracentesis FAMILY HISTORY: No family history of cancer SOCIAL HISTORY: Lives in [place], [place] to Jennifer who is present today Retired from [employer] with his son Previous smoker [...] Lymph 1.00 - 4.00 k/uL 0.69 (L) Zapata% % 11.5 Abs Zapata <0.87 k/uL 1.11 (H) Eosin% % 2.8 [...] Last Resulted: 04/24/23 7:12 PM Received From: [facility] Result Received: 05/01/23 10:37 AM ASSESSMENT [...] needed. Niesha Galdamez MD Associate Staff Physician [address] [address] Pager: [phone] CC: Michael Boykin ([facility]) [address] [place] [address] [place] [address] . ADDENDUM: Case presented at tumor board and pathologist explained that [facility] Path review shows follicular lymphoma grade 3A and NOT DLBCL. Outside slides ([id number], 05/07/2023), [place], [place] Right inguinal lymph node, excisional biopsy: [...] Dr. Ashutosh Galdamez MD documented in this encounterSelect Medical [facility]ty [facility]07-24-2023 Miscellaneous Notes* Telephone Encounter - Fabi Freed - 05/26/2023 2:[address] Rivera office they received this referral and have patient scheduled with Dr. Rivera for portplacement on 05/28 @[facility]. Fabi Wong * Telephone Encounter - [...] the patient. Thank you. documented in this encounterSelect Medical Specialty [facility]07-20-2023 History of Present illness Narrative* Michael Boykin MD - 05/22/2023 8:17 AM EDT PATIENT NAME: Katia Shaikh DATE: 05/22/2023 PRIMARY CARE PHYSICIAN: No PCP OTHER PHYSICIANS: Dr. Rivera, Dr. Emelia Gonzalez ([facility] [place] [facility] [place]) Portions of this encounter note have been [...] PATHOLOGY: 05/07/2023 Right inguinal lymph node biopsy ([facility]) Diffuse large B-cell lymphoma LABS: Hemoglobin (g/dL) Date Value 05/13/2023 13.4 Hematocrit (%) Date Value 05/13/2023 42.3 WBC (k/uL) Date Value 05/13/2023 9.67 Platelet Count (k/uL) Date Value 05/13/2023 306 RADIOLOGY/OTHER STUDIES: 04/24/2023 PET scan ([facility]) Above the diaphragm the patient has [...] of a right inguinal lymph node at [facility]. Pathology revealed diffuse large B-cell lymphoma. [...] his recent biopsy to be reviewed at [facility]. Unfortunately, his initial biopsy from 2001 is not available for review. He will be referred to [facility] lymphoma division for specific recommendations. [...] MD CC: Dr. Rivera, Dr. Emelia Gonzalez ([facility] [place] [facility] [place]) documented in this encounterSelect Medical [facility]ty [facility]07-19-2023 Miscellaneous Notes* Telephone Encounter - Ivania Jackman, STEVE - 05/21/2023 3:24 PM EDT Per pt, his 2001 lymph node biopsy was done per Dr Rivera @ [facility]. Spoke w/ Claire in Medical Records. She reports that they only keep records for 10 years. They will not be able to retrieve pt's original path report. Ivania Jackman, STEVE documented in this encounterSelect Medical Specialty [facility]07-18-2023 Miscellaneous Notes* Telephone Encounter - Emma Mendoza - 05/20/2023 2:39 PM EDT Spoke to Alma Rosa at [facility], she has order and will call patient to schedule. * Telephone Encounter - Iavnia Jackman, STEVE - 05/19/2023 3:[address] Boykin, pt's LN biopsy was positive for DLBCL. Recommends we get an ECHO and port placed. Aniket to reach out to [facility] doctor regarding treatment options. Pt notified and verbalizes understanding. Agrees to ECHO, but wishes to wait on port until he speaks w/ at 's appointment. BRM: ECHO order pended. Clerical: Please schedule ECHO at [facility]. Pt would prefer an appointment next week if possible. Ivania Jackman, RN documented in this encounterSelect Medical Specialty [facility]07-14-2023 Miscellaneous Notes* Telephone Encounter - Gretchen Arora - 05/16/2023 9:51 AM EDT 2 nd opinion pathology requested from [facility] / [facility] to be sent to [facility] for review. documented in this encounterSelect Medical Specialty [facility]07-11-2023 History of Present illness Narrative* Michael Boykin MD - 05/13/2023 8:16 AM EDT PATIENT NAME: Katia Shaikh DATE: 05/13/2023 PRIMARY CARE PHYSICIAN: No PCP OTHER PHYSICIANS: Dr. Rivera, Dr. Emelia Gonzalez ([facility] [place] [facility]) HPI: This is a 67 year old [...] of a right inguinal lymph node at [facility]. Pathology currently pending. Currently the patient's main complaint is fatigue. He has lost 5 to 10 pounds in the past 3 months.No fevers or night sweats. He has discomfort in his inguinal area from the lymphadenopathy, but no severe pain. He has a history of smoking and continue to do so. He drinks alcohol socially. He is retired from the [employer]. MEDICATIONS: No current outpatient medications on file. [...] PATHOLOGY: 05/07/2023 Right inguinal lymph node biopsy ([facility]) Pathology pending LABS: Hemoglobin (g/dL) Date Value 05/13/2023 13.4 Hematocrit (%) Date Value 05/13/2023 42.3 WBC (k/uL) Date Value 05/13/2023 9.67 Platelet Count (k/uL) Date Value 05/13/2023 306 RADIOLOGY/OTHER STUDIES: 04/24/2023 PET scan ([facility] [place] [employer]) Above the diaphragm the patient has significant [...] of a right inguinal lymph node at [facility]. Pathology currently pending. Most likely the [...] MD CC: Dr. Rivera, Dr. Emelia Gonzalez ([facility] [place] [facility] [place]) documented in this encounterSelect Medical Specialty [facility]04-02-2023 Miscellaneous Notes* Telephone Encounter - Ceci Ramírez - 08/04/2023 11:54 AM EDT Patient coming in Friday08/05/23 for follow up treatment. Please add labs orders. Thanks. Ceci Ramírez MA documented in this encounterSelect Medical Specialty Hospital - Cleveland-FairhillEvaluation + Plan note No data available for this section General Surgery Annmarie Evaluation note* Diagnosis Non-Hodgkin's lymphoma, unspecified body region, unspecified non-Hodgkin lymphoma type (HCC) Hypothyroidism, unspecified type documented in this encounter [employer] Phone: evaluation note* Diagnosis Non-Hodgkin's lymphoma, unspecified body region, unspecified non-Hodgkin lymphoma type (HCC) Hypothyroidism, unspecified type documented in this encounter [facility] [employer] Phone: evaluation note* Diagnosis Non-Hodgkin lymphoma of lymph nodes of multiple regions, unspecified non-Hodgkin lymphoma type (HCC)- Primary Acquired hypothyroidism Unspecified hypothyroidism documented in this encounter [facility]* Diagnosis Diffuse large B-cell lymphoma of lymph nodes of multiple regions (HCC)- Primary documented in this encounter [facility]* Diagnosis History of diffuse large B-cell lymphoma- Primary Diffuse large B-cell lymphoma of lymph nodes of multiple regions (HCC) 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) documented in this encounter [facility]* Diagnosis 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) documented in this encounter [facility]* Diagnosis Non-Hodgkin lymphoma of lymph nodes of multiple regions, unspecified non-Hodgkin lymphoma type (HCC)- Primary DE DIOS (dyspnea on exertion) Other dyspnea and respiratory abnormality documented in this encounter [facility]Eval[facility]* Diagnosis 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 documented in this encounter [facility]* Diagnosis 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 documented in this encounter [facility]* Diagnosis 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) documented in this encounter [facility]Evalus[facility] emergency department noteNo assessment information availableAshtabula [facility]tr Work Phone: Evaluation note* Diagnosis Non-Hodgkin lymphoma of lymph nodes of multiple regions, unspecified non-Hodgkin lymphoma type (HCC)- Primary documented in this encounter [facility]Eval[facility]* Diagnosis Non-Hodgkin lymphoma of lymph nodes of multiple regions, unspecified non-Hodgkin lymphoma type (HCC) documented in this encounter [facility]* Diagnosis 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 Acquired hypothyroidism Unspecified hypothyroidism History of diffuse large B-cell lymphoma documented in this encounter [facility]* Diagnosis Follicular lymphoma grade IIIa, unspecified body region (HCC)- Primary documented in this encounter [facility]Eval[facility]* Diagnosis 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 History of follicular lymphoma documented in this encounter [facility]* Diagnosis Non-Hodgkin lymphoma of lymph nodes of multiple regions, unspecified non-Hodgkin lymphoma type (HCC)- Primary 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) [facility] 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 [facility] Diagnosis Diffuse large B-cell lymphoma, unspecified body region [facility] High grade B-cell lymphoma (HCC)- Primary Other malignant lymphomas, unspecified site, extranodal and solid organ sites History of follicular lymphoma [facility] Diagnosis 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 History of follicular lymphoma Diffuse large B-cell lymphoma of lymph nodes of multiple regions (HCC) [facility] Diagnosis Personal history of diseases of blood and blood-forming organs Diffuse large B-cell lymphoma, unspecified body region (HCC) Encounter for monitoring cardiotoxic drug therapy Encounter for therapeutic drug monitoring Diffuse large B-cell lymphoma of lymph nodes of multiple regions (HCC) [facility] Diagnosis Diffuse large B-cell lymphoma of lymph nodes of multiple regions (HCC) Personal history of diseases of blood and blood-forming organs Diffuse large B-cell lymphoma of lymph nodes of multiple regions (HCC) [facility] Diagnosis 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 large B-cell lymphoma of lymph nodes of multiple regions (HCC) [facility] [...] follicular lymphoma [facility] [...] influencing health status [facility] Diagnosis Diffuse large B-cell lymphoma of lymph nodes of multiple regions (HCC)- Primary [facility] Diagnosis Diffuse large B-cell lymphoma of lymph nodes of multiple regions (HCC)- Primary [facility]* Diagnosis Encounter for antineoplastic chemotherapy- Primary Diffuse large B-cell lymphoma of lymph nodes of multiple regions (HCC) [facility] Diagnosis Diffuse large B-cell lymphoma, unspecified body region (HCC)- Primary History of engineered cell therapy infusion Other specified personal history presenting hazards to health [facility] Diagnosis Diffuse large B-cell lymphoma of lymph nodes of multiple regions (HCC)- Primary [facility] Diagnosis History of engineered cell therapy infusion- Primary Other specified personal history presenting hazards to health Diffuse large B-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) Pancytopenia (HCC) Other pancytopenia At risk for infection due to immunosuppression Immunodeficiency (HCC) Unspecified immunity deficiency At risk for fluid and electrolyte imbalance [facility] Diagnosis Diffuse large B-cell lymphoma, unspecified body region (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 Other specified personal history presenting hazards to health [facility] Diagnosis History of engineered cell therapy infusion- Primary Other specified personal history presenting hazards to health Diffuse large B-cell lymphoma of lymph nodes of multiple regions (HCC) Immunodeficiency (HCC) Unspecified immunity deficiency Other pancytopenia (HCC) Other pancytopenia [facility]* Diagnosis Complication of immune effector cellular therapy, initial encounter- Primary [facility]* Diagnosis Diffuse large B-cell lymphoma of lymph nodes of multiple regions (HCC) documented in this encounter [facility] note* Diagnosis Diffuse large B-cell lymphoma of lymph nodes of multiple regions (HCC)- Primary Lymphedema Other lymphedema documented in this encounter [facility] note* Diagnosis Diffuse large B-cell lymphoma of lymph nodes of multiple regions (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 Other specified personal history presenting hazards to health documented in this encounter [facility] note* Diagnosis Diffuse large B-cell lymphoma, unspecified body region (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 Other specified personal history presenting hazards to health documented in this encounter [facility] note* Diagnosis 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) documented in this encounter [facility] note* Diagnosis Diffuse large B-cell lymphoma, unspecified body region (HCC) documented in this encounter [facility] note* Diagnosis Diffuse large B-cell lymphoma of lymph nodes of multiple regions (HCC)- Primary Lymphedema Other lymphedema documented in this encounter [facility] Discharge instructions No data available for this section [facility] note No data available for this section [facility] Reason for referral (narrative)* Outpatient Procedure (Routine) - Pending Review Specialty Diagnoses / Procedures Referred By Contac t Referred To [facility] Diagnoses Non-Hodgkin lymphoma of lymph nodes of multiple regions, unspecified non-Hodgkin lymphoma type (HCC) DE DIOS (dyspnea on exertion) [facility] W/WOM-MODE COMPL SPEC&COLR Michael Tillman MD [address] [place] [address] [place] [address] [facility] [address] [place] [address] Referral ID Status Reason Start Date Expiration Date Visits Requested Visits Authorized [id number] Pending Review Auto-Generat ed Referral 05/19/2023 05/18/2024 1 1 [facility] for referral (narrative)* Diagnostic Procedure Only (Routine) - Authorized Specialty Diagnoses / Procedures Referred By Contac t Referred To Contact [facility] Diagnoses 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) Procedures NM PET/CT SKULL-THIGH SUBSEQUENT PET IMAGING CT ATTENUATION SKULL BASE MID-THIGH Niesha Galdamez MD [address] [place] [address] [facility] [address] [place] [address] Referral ID Status Reason Start Date Expiration Date Visits Requested Visits Authorized [id number] Authorized Auto-Generat ed Referral 01/20/2024 02/18/2025 1 1 [facility] for referral (narrative)* Diagnostic Procedure Only (Routine) - Authorized Specialty Diagnoses / Procedures [facility] Diagnoses Diffuse large B-cell lymphoma, unspecified body region (HCC) Procedures NM PET/CT SKULL-THIGH SUBSEQUENT PET IMAGING CT ATTENUATION SKULL BASE MID-THIGH Niesha Galdamez MD [address] [place] [address] [facility] [address] [place] [address] Referral ID Status Reason Start Date Expiration Date Visits Requested Visits Authorized [id number] Authorized Auto-Generat ed Referral 02/18/2024 03/19/2025 1 1 * Consult, Test, Treat (Routine) - Authorized Specialty Diagnoses / Procedures Referred By Contac t Referred To Contact Diagnoses Diffuse large B-cell lymphoma of lymph nodes of multiple regions (HCC) Procedures [facility] FOLLOW-UP OFFICE/OUTPATIENT NEW HIGH MDM 60 MINUTES Niesha Galdamez MD [address] [place] [address] Referral ID Status Reason Start Date Expiration Date Visits Requested Visits Authorized [id number] Authorized PCP Requested Referral 02/18/2024 02/17/2025 1 1 * Outpatient Procedure (Routine) - Authorized Specialty Diagnoses / Procedures Referred By Brianac t Referred To Contact [facility] Diagnoses Diffuse large B-cell lymphoma of lymph nodes of multiple regions (HCC) Encounter for monitoring cardiotoxic drug therapy Procedures ECHO ECHO [facility] R-T 2D W/WOM-MODE COMPL SPEC&COLR D Niesha Galdamez MD [id number] [place] [address] Referral ID Status Reason Start Date Expiration Date Visits Requested Visits Authorized [id number] Authorized Auto-Generat ed Referral 02/18/2024 02/17/2025 1 1 * Outpatient Procedure (Routine) - Authorized Specialty Diagnoses / Procedures Referred By Sergio t Referred To Contact [facility] Diagnoses Diffuse large B-cell lymphoma of lymph nodes of multiple regions (HCC) Procedures ECG COMPLETE ECG ROUTINE ECG W/LEAST 12 LDS W/I&R Niesha Galdamez MD [address] [place] [address] [place] [id number] Referral ID Status Reason Start Date Expiration Date Visits Requested Visits Authorized [id number] Authorized Auto-Generat ed Referral 02/18/2024 02/17/2025 1 1 [facility] for referral (narrative)* Diagnostic Procedure Only (Routine) - Pending Review Specialty Diagnoses / Procedures Referred By Sergio astorga Referred To Contact [facility] Diagnoses Diffuse large B-cell lymphoma, unspecified body region (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 Procedures NM PET/CT SKULL-THIGH SUBSEQUENT PET IMAGING CT ATTENUATION SKULL BASE MID-THIGH Niesha Galdamez MD [address] [place] [address] [facility] [address] [place] [address] Referral ID Status Reason Start Date Expiration Date Visits Requested Visits Authorized [id number] Pending Review Auto-Generat ed Referral 04/06/2024 05/06/2025 1 1 T [facility] for referral (narrative)* Diagnostic Procedure Only (Routine) - New Request Specialty Diagnoses / Procedures Referred By Contac t Referred To Contact [facility] Diagnoses Diffuse large B-cell lymphoma of lymph nodes of multiple regions (HCC) Procedures NM PET/CT SKULL-THIGH SUBSEQUENT PET IMAGING CT ATTENUATION SKULL BASE MID-THIGH Michael Boykin MD [address] [facility] [place] [address] [facility] [address] [place] [address] Referral ID Status Reason Start Date Expiration Date Visits Requested Visits Authorized [id number] New Request Auto-Generat ed Referral 06/17/2024 07/17/2025 1 1 T [facility] for referral (narrative)* Diagnostic Procedure Only (Routine) - Closed Specialty Diagnoses / Procedures Referred By Contac t Referred To Contact [facility] Diagnoses Diffuse large B-cell lymphoma of lymph nodes of multiple regions (HCC) Procedures NM PET/CT SKULL-THIGH SUBSEQUENT PET IMAGING CT ATTENUATION SKULL BASE MID-THIGH Michael Boykin MD [address] [place] [address] [place] [address] [facility] [address] [place] [address] Referral ID Status Reason Start Date Expiration Date V isits Requested Visits Authorized [id number] Closed Auto-Generate d Referral 06/17/2024 07/17/2025 1 1 T [facility] for referral (narrative)* Diagnostic Procedure Only (Routine) - Closed Specialty Diagnoses / Procedures Referred By Contac t Referred To Contact [facility] Diagnoses Diffuse large B-cell lymphoma, unspecified body region (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 Procedures NM PET/CT SKULL-THIGH SUBSEQUENT PET IMAGING CT ATTENUATION SKULL BASE MID-THIGH Niesha Galdamez MD [address] [place] [address] [facility] [address] [place] [address] Referral ID Status Reason Start Date Expiration Date V isits Requested Visits Authorized [id number] Closed Auto-Generate d Referral 04/06/2024 05/06/2025 1 1 [facility] for referral (narrative)* Diagnostic Procedure Only (Routine) - Closed Specialty Diagnoses / Procedures Referred By Brianac t Referred To Contact [facility] Diagnoses 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) Procedures NM PET/CT SKULL-THIGH SUBSEQUENT PET IMAGING CT ATTENUATION SKULL BASE MID-THIGH Niesha Galdamez MD [address] [place] [address] [facility] [address] [place] [address] Referral ID Status Reason Start Date Expiration Date V isits Requested Visits Authorized [id number] Closed Auto-Generate d Referral 01/20/2024 02/18/2025 1 1 [facility] for referral (narrative)* Diagnostic Procedure Only (Routine) - Closed Specialty Diagnoses / Procedures Referred By Contac t Referred To Contact [facility] Diagnoses Diffuse large B-cell lymphoma, unspecified body region (HCC) Procedures NM PET/CT SKULL-THIGH SUBSEQUENT PET IMAGING CT ATTENUATION SKULL BASE MID-THIGH Niesha Galdamez MD [address] [place] [address] [facility] [address] [place], [place] [id number] Referral ID Status Reason Start Date Expiration Date V isits Requested Visits Authorized [id number] Closed Auto-Generate d Referral 01/21/2024 02/18/2025 1 1 [facility] Diagnostic Procedure Only (Routine) - Closed Specialty Diagnoses / Procedures Referred By Sergio astorga Referred To Contact [facility] Diagnoses Diffuse large B-cell lymphoma, unspecified body region (HCC) Procedures NM PET/CT SKULL-THIGH SUBSEQUENT PET IMAGING CT ATTENUATION SKULL BASE MID-THIGH Cleo Feliz APRN.CNP [address] [place] [address] [place] [address] [facility] [address] [place] [address] Referral ID Status Reason Start Date Expiration Date V isits Requested Visits Authorized [id number] Closed Auto-Generate d Referral 10/28/2023 11/26/2024 1 1 [facility] Assessments Diagnosis Non-Hodgkin's lymphoma, unspecified body region, unspecified non-Hodgkin lymphoma type (HCC) Hypothyroidism, unspecified type Encounter for screening for lung cancer Advance Directives No Advanced Directives Records FoundDocuments on File Type Date Recorded Patient 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 Advance Directives and Living Will Power of Handstitching Machine Armhole Feller Documents on File Type Date Recorded Patient 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 anation ACP-Advance Directive ACP-Power of Handstitching Machine Armhole Feller Date Activated Date Inactivated Comments 04/15/2024 2:33 [...] SIMULAJ-AIDED FIELD SETTING COMPLEX Tristen Varela MD [address] [facility] [place] [address] Referral ID Status Reason Start Date Expiration Date Visits Requested Visits Authorized [id number] Pending Review PCP Requested Referral 03/15/2024 06/13/2024 1 1 Specialty Diagnoses / Procedures Referred By Sergio t Referred To Contact Diagnoses Diffuse large B-cell lymphoma of lymph nodes of multiple regions (HCC) Procedures CONSULT TO HEMATOLOGY/ONCOLOGY OFFICE/OUTPATIENT [facility] 60-74 MINUTES Mcihael Boykin MD [address] [place] [address] [place] [address] Referral ID Status Reason Start Date Expiration Date Visits Requested Visits Authorized [id number] Authorized PCP Requested Referral 05/22/2023 05/21/2024 1 [...] Minutes, ONCE, 1 dose, On Fri07/08/23 at 09, EXP:145 Hazardous Chemotherapy Drug: Use appropriate PPE. [...] and content) DATE CREATED AUTHOR 04/11/2023 Juliane Sapp [facility] DATE CREATED AUTHOR AUTHOR'S ORGANIZ ATION 02/03/2024 [facility] DATE CREATED AUTHOR AUTHOR'S ORGANIZ ATION 07/16/2024 [facility] DATE CREATED AUTHOR AUTHOR'S ORGANIZ ATION 09/04/2024 [facility] DATE CREATED AUTHOR AUTHOR'S ORGANIZ ATION 09/17/2024 [facility] Patient Care team informatio n (unrecognized section and content) Addiction Therapist Relationship Specialty Start Date End Date Cleo Feliz, JOSE ALBERTO.HOGSHEAD STOCK CLERK [address] [place] [address] [place] [address] Nurse Practitioner Hematology/Oncology 06/05/23 Michael Boykin MD [address] [facility] [place] [address] Physician Hematology/Oncology 06/05/23 Ivania Jackman, STEVE [address] [facility] [place] [address] Specialty National Secretary Hematology/Oncology 06/05/23 Addiction Therapist Relationship Specialty Start Date End Date Cleo Feliz, GROUND DEFENCE OFFICER.HOGSHEAD STOCK CLERK [address] [facility] [place] [address] Nurse Practitioner Hematology/Oncology 06/05/23 Michael Boykin MD [address] [place] [address] Physician Hematology/Oncology 06/05/23 Ivania Jackman, RN [address] [facility] [place] [address] Specialty National Secretary Hematology/Oncology 06/05/23 Addiction Therapist Relationship Specialty Start Date End Date Cleo Feliz, GROUND DEFENCE OFFICER.HOGSHEAD STOCK CLERK [address] [facility] [place] [place] [address] Nurse Practitioner Hematology/Oncology 06/05/23 Michael Boykin MD [address] [facility] [place] [address] Physician Hematology/Oncology 06/05/23 Ivania Jackman, STEVE [address] [facility] [place] [address] Specialty National Secretary Hematology/Oncology 06/05/23 Addiction Therapist Relationship Specialty Start Date End Date Cleo Feliz, GROUND DEFENCE OFFICER.HOGSHEAD STOCK CLERK [address] [facility] [place] [address] Nurse Practitioner Hematology/Oncology 06/05/23 Michael Boykin MD [address] [facility] [place] [address] Physician Hematology/Oncology 06/05/23 Ivania Jackman, RN [address] [facility] [place] [address] Specialty National Secretary Hematology/Oncology 06/05/23 Addiction Therapist Relationship Specialty Start Date End Date Cleo Feliz, GROUND DEFENCE OFFICER.HOGSHEAD STOCK CLERK [address] [facility] [place] [address] Nurse Practitioner Hematology/Oncology 06/05/23 Michael Boykin MD [address] [facility] [place] [address] Physician Hematology/Oncology 06/05/23 Ivania Jackman, STEVE [address] [facility] [place] [address] Specialty National Secretary Hematology/Oncology 06/05/23 Addiction Therapist Relationship Specialty Start Date End Date Cleo Feliz, GROUND DEFENCE OFFICER.HOGSHEAD STOCK CLERK [address] [facility] [place] [address] Nurse Practitioner Hematology/Oncology 06/05/23 Michael Boykin MD [address] [facility] [place] [address] Physician Hematology/Oncology 06/05/23 Ivania Jackman, STEVE [address] [facility] [place] [address] Specialty National Secretary Hematology/Oncology 06/05/23 Addiction Therapist Relationship Specialty Start Date End Date Cleo Feliz, GROUND DEFENCE OFFICER.HOGSHEAD STOCK CLERK [address] [facility] [place] [address] Nurse Practitioner Hematology/Oncology 06/05/23 Michael Boykin MD [address] [facility] [place] [address] Physician Hematology/Oncology 06/05/23 Ivania Jackman, RN [address] [facility] [place] [address] Specialty National Secretary Hematology/Oncology 06/05/23 Addiction Therapist Relationship Specialty Start Date End Date Cleo Feliz, GROUND DEFENCE OFFICER.HOGSHEAD STOCK CLERK [address] [place] [address] Nurse Practitioner Hematology/Oncology 06/05/23 Michael Boykin MD [address] [place] [address] Physician Hematology/Oncology 06/05/23 Ivania Jackman, STEVE [address] [facility] [place] [address] Specialty National Secretary Hematology/Oncology 06/05/23 Addiction Therapist Relationship Specialty Start Date End Date Cleo Feliz, GROUND DEFENCE OFFICER.HOGSHEAD STOCK CLERK [address] [facility] [place] [address] Nurse Practitioner Hematology/Oncology 06/05/23 Michael Boykin MD [address] [facility] [place] [address] Physician Hematology/Oncology 06/05/23 Ivania Jackman, RN [address] [facility] [place] [address] Specialty National Secretary Hematology/Oncology 06/05/23 Addiction Therapist Relationship Specialty Start Date End Date Cleo Feliz, GROUND DEFENCE OFFICER.HOGSHEAD STOCK CLERK [address] [facility] [place] [address] Nurse Practitioner Hematology/Oncology 06/05/23 Michael Boykin MD [address] [facility] [place] [address] Physician Hematology/Oncology 06/05/23 Ivania Jackman, RN [address] [facility] [place] [address] Specialty National Secretary Hematology/Oncology 06/05/23 Addiction Therapist Relationship Specialty Start Date End Date Cleo Feliz, GROUND DEFENCE OFFICER.HOGSHEAD STOCK CLERK [address] [facility] [place] [address] Nurse Practitioner Hematology/Oncology 06/05/23 Michael Boykin MD [address] [facility] [place] [address] Physician Hematology/Oncology 06/05/23 Ivania Jackman, STEVE [address] [facility] [place] [address] Specialty National Secretary Hematology/Oncology 06/05/23 Addiction Therapist Relationship Specialty Start Date End Date Cleo Feliz, GROUND DEFENCE OFFICER.HOGSHEAD STOCK CLERK [address] [facility] [place] [address] Nurse Practitioner Hematology/Oncology 06/05/23 Michael Boykin MD [address] [facility] [place] [address] Physician Hematology/Oncology 06/05/23 Ivania Jackman, STEVE [address] [facility] [place] [address] Specialty National Secretary Hematology/Oncology 06/05/23 Addiction Therapist Relationship Specialty Start Date End Date Cleo Feliz, GROUND DEFENCE OFFICER.HOGSHEAD STOCK CLERK [address] [facility] [place] [address] Nurse Practitioner Hematology/Oncology 06/05/23 Michael Boykin MD [address] [place] [address] Physician Hematology/Oncology 06/05/23 Ivania Jackman, RN [address] [place] [address] Specialty National Secretary Hematology/Oncology 06/05/23 Addiction Therapist Relationship Specialty Start Date End Date Cleo Feliz, GROUND DEFENCE OFFICER.HOGSHEAD STOCK CLERK [address] [place] [address] Nurse Practitioner Hematology/Oncology 06/05/23 Michael Boykin MD [address] [place] [address] Physician Hematology/Oncology 06/05/23 Ivania Jackman, RN [address] [facility] [place] [address] Specialty National Secretary Hematology/Oncology 06/05/23 Addiction Therapist Relationship Specialty Start Date End Date Cleo Feliz, GROUND DEFENCE OFFICER.HOGSHEAD STOCK CLERK [address] [place] [address] Nurse Practitioner Hematology/Oncology 06/05/23 Michael Boykin MD [address] [facility] [place] [address] Physician Hematology/Oncology 06/05/23 Ivania Jackman, RN [address] [place] [address] Specialty National Secretary Hematology/Oncology 06/05/23 Addiction Therapist Relationship Specialty Start Date End Date Cleo Feliz, GROUND DEFENCE OFFICER.HOGSHEAD STOCK CLERK [address] [place] [address] Nurse Practitioner Hematology/Oncology 06/05/23 Michael Boykin MD [address] [facility] [place] [address] Physician Hematology/Oncology 06/05/23 Ivania Jackman, RN [address] [facility] [place] [address] Specialty National Secretary Hematology/Oncology 06/05/23 Addiction Therapist Relationship Specialty Start Date End Date Cleo Feliz, GROUND DEFENCE OFFICER.HOGSHEAD STOCK CLERK [address] [facility] [place] [address] Nurse Practitioner Hematology/Oncology 06/05/23 Michael Boykin MD [address] [facility] [place] [address] Physician Hematology/Oncology 06/05/23 Ivania Jackman, STEVE [address] [facility] [place] [address] Specialty National Secretary Hematology/Oncology 06/05/23 Addiction Therapist Relationship Specialty Start Date End Date Cleo Feliz, GROUND DEFENCE OFFICER.HOGSHEAD STOCK CLERK [address] [facility] [place] [address] Nurse Practitioner Hematology/Oncology 06/05/23 Michael Boykin MD [address] [facility] [place] [address] Physician Hematology/Oncology 06/05/23 Ivania Jackman, RN [address] [facility] [place] [address] Specialty National Secretary Hematology/Oncology 06/05/23 Addiction Therapist Relationship Specialty Start Date End Date Cleo Feliz, GROUND DEFENCE OFFICER.HOGSHEAD STOCK CLERK [address] [facility] [place] [address] Nurse Practitioner Hematology/Oncology 06/05/23 Michael Boykin MD [address] [place] [address] Physician Hematology/Oncology 06/05/23 Ivania Jackman, RN [address] [facility] [place] [address] Specialty National Secretary Hematology/Oncology 06/05/23 Team Status: Inactive Member Role Status Dates Chiquita Rivera MD FACS Attending Provider Active Start: December 17, 2023 End: December 17, 2023 Addiction Therapist Relationship Specialty Start Date End Date Cleo Feliz, GROUND DEFENCE OFFICER.HOGSHEAD STOCK CLERK [address] [facility] [place] [address] Nurse Practitioner Hematology/Oncology 06/05/23 Michael Boykin MD [address] [facility] [place] [address] Physician Hematology/Oncology 06/05/23 Ivania Jackman, STEVE [address] [facility] [place] [address] Specialty National Secretary Hematology/Oncology 06/05/23 Addiction Therapist Relationship Specialty Start Date End Date Cleo Feliz, GROUND DEFENCE OFFICER.HOGSHEAD STOCK CLERK [address] [facility] [place] [address] Nurse Practitioner Hematology/Oncology 06/05/23 Michael Boykin MD [address] [facility] [place] [address] Physician Hematology/Oncology 06/05/23 Ivania Jackman, STEVE [address] [facility] [place] [address] Specialty National Secretary Hematology/Oncology 06/05/23 Addiction Therapist Relationship Specialty Start Date End Date Dorcas Bolanos MD [address] [place] [address] Hematology 01/07/24 Niesha Galdamez MD [address] [place] [address] Hematology and Oncology 01/08/24 Michael Boykin MD [address] [place] [address] [place] [address] Hematology and Oncology 01/08/24 Addiction Therapist Relationship Specialty Start Date End Date Emelia Gonzalez MD [address] [place] [id number] PCP - General Hematology/Oncology 02/02/24 Cleo Feliz APRN.HOGSHEAD STOCK CLERK [address] [facility] [place] [address] Nurse Practitioner Hematology/Oncology 06/05/23 Michael Boykin MD [address] [place] [address] [place] [address] Physician Hematology/Oncology 06/05/23 Ivania Jackman, STEVE [address] [facility] [place] [address] Specialty National Secretary Hematology/Oncology 06/05/23 Addiction Therapist Relationship Specialty Start Date End Date Emelia Gonzalez MD [address] [place] [address] PCP - General Hematology/Oncology 02/02/24 Cleo Feliz, GROUND DEFENCE OFFICER.HOGSHEAD STOCK CLERK [address] [facility] [place] [address] Nurse Practitioner Hematology/Oncology 06/05/23 Michael Boykin MD [address] [facility] [place] [address] Physician Hematology/Oncology 06/05/23 Ivania Jackman, STEVE [address] [facility] [place] [address] Specialty National Secretary Hematology/Oncology 06/05/23 Addiction Therapist Relationship Specialty Start Date End Date Emelia Gonzalez MD [address] [place] [address] PCP - General Hematology/Oncology 02/02/24 Cleo Feliz, GROUND DEFENCE OFFICER.HOGSHEAD STOCK CLERK [address] [facility] [place] [address] Nurse Practitioner Hematology/Oncology 06/05/23 Michael Boykin MD [address] [facility] [place] [address] Physician Hematology/Oncology 06/05/23 Ivania Jackman, STEVE [address] [facility] [place] [address] Specialty National Secretary Hematology/Oncology 06/05/23 Addiction Therapist Relationship Specialty Start Date End Date Emelia Gonzalez MD [address] [place], [place] [id number] PCP - General Hematology/Oncology 02/02/24 Cleo Feliz, GROUND DEFENCE OFFICER.HOGSHEAD STOCK CLERK [address] [place] [address] Nurse Practitioner Hematology/Oncology 06/05/23 Michael Boykin MD [address] [place] [address] Physician Hematology/Oncology 06/05/23 Ivania Jackman, STEVE [address] [place] [address] Specialty National Secretary Hematology/Oncology 06/05/23 Addiction Therapist Relationship Specialty Start Date End Date Emelia Gonzalez MD [address] [place] [address] PCP - General Hematology/Oncology 02/02/24 Cleo Feliz, GROUND DEFENCE OFFICER.HOGSHEAD STOCK CLERK [address] [facility] [place] [address] Nurse Practitioner Hematology/Oncology 06/05/23 Michael Boykin MD [address] [facility] [place] [address] Physician Hematology/Oncology 06/05/23 Ivania Jackman, STEVE [address] [facility] [place] [address] Specialty National Secretary Hematology/Oncology 06/05/23 Addiction Therapist Relationship Specialty Start Date End Date Emelia Gonzalez MD [address] [place] [address] PCP - General Hematology/Oncology 02/02/24 Cleo Feliz, GROUND DEFENCE OFFICER.HOGSHEAD STOCK CLERK [address] [facility] [place] [address] Nurse Practitioner Hematology/Oncology 06/05/23 Michael Boykin MD [address] [facility] [place] [address] Physician Hematology/Oncology 06/05/23 Ivania Jackman, STEVE [address] [facility] [place] [address] Specialty National Secretary Hematology/Oncology 06/05/23 Addiction Therapist Relationship Specialty Start Date End Date Cleo Feliz, GROUND DEFENCE OFFICER.HOGSHEAD STOCK CLERK [address] [facility] [place] [address] Nurse Practitioner Hematology/Oncology 06/05/23 Michael Boykin MD [address] [facility] [place] [address] Physician Hematology/Oncology 06/05/23 Ivania Jackman RN [address] [facility] [place] [address] Specialty National Secretary Hematology/Oncology 06/05/23 Krystyna Hernandez, FREDA [address] [place] [address] Blood and Marrow Transplant 02/23/24 Addiction Therapist Relationship Specialty Start Date End Date Cleo Feliz, GROUND DEFENCE OFFICER.HOGSHEAD STOCK CLERK [address] [facility] [place] [address] Nurse Practitioner Hematology/Oncology 06/05/23 Michael Boykin MD [address] [facility] [place] [address] Physician Hematology/Oncology 06/05/23 Ivania Jackman, STEVE [address] [facility] [place] [address] Specialty National Secretary Hematology/Oncology 06/05/23 Krystyna Hernandez LISW [address] [place] [address] Blood and Marrow Transplant 02/23/24 Addiction Therapist Relationship Specialty Start Date End Date Cleo Feliz, GROUND DEFENCE OFFICER.HOGSHEAD STOCK CLERK [address] [facility] [place] [address] Nurse Practitioner Hematology/Oncology 06/05/23 Michael Boykin MD [address] [place] [address] [place] [address] Physician Hematology/Oncology 06/05/23 Ivania Jackman RN [address] [facility] [place] [address] Specialty National Secretary Hematology/Oncology 06/05/23 Krystyna Hernandez LISW [address] [place] [address] Blood and Marrow Transplant 02/23/24 Addiction Therapist Relationship Specialty Start Date End Date Cleo Feliz, GROUND DEFENCE OFFICER.HOGSHEAD STOCK CLERK [address] [facility] [place] [address] Nurse Practitioner Hematology/Oncology 06/05/23 Michael Boykin MD [address] [facility] [place] [address] Physician Hematology/Oncology 06/05/23 Ivania Jackman, STEVE [address] [facility] [place] [address] Specialty National Secretary Hematology/Oncology 06/05/23 Krystyna Hernandez LISW [address] [place] [address] Blood and Marrow Transplant 02/23/24 Addiction Therapist Relationship Specialty Start Date End Date Cleo Feliz, GROUND DEFENCE OFFICER.HOGSHEAD STOCK CLERK [address] [facility] [place] [address] Nurse Practitioner Hematology/Oncology 06/05/23 Michael Boykin MD [address] [place] [address] [place] [address] Physician Hematology/Oncology 06/05/23 Ivania Jackman, STEVE [address] [facility] [place] [address] Specialty National Secretary Hematology/Oncology 06/05/23 Krystyna Hernandez LISW [address] [place] [address] Blood and Marrow Transplant 02/23/24 Addiction Therapist Relationship Specialty Start Date End Date Cleo Feliz, GROUND DEFENCE OFFICER.HOGSHEAD STOCK CLERK [address] [facility] [place] [address] Nurse Practitioner Hematology/Oncology 06/05/23 Michael Boykin MD [address] [place] [address] [place] [address] Physician Hematology/Oncology 06/05/23 Ivania Jackman, STEVE [address] [facility] [place] [address] Specialty National Secretary Hematology/Oncology 06/05/23 Krystyna Hernandez LISW [address] [place] [address] Blood and Marrow Transplant 02/23/24 Addiction Therapist Relationship Specialty Start Date End Date Cleo Feliz, GROUND DEFENCE OFFICER.HOGSHEAD STOCK CLERK [address] [facility] [place] [address] Nurse Practitioner Hematology/Oncology 06/05/23 Michael Boykin MD [address] [facility] [place] [address] Physician Hematology/Oncology 06/05/23 Ivania Jackman, STEVE [address] [facility] [place] [address] Specialty National Secretary Hematology/Oncology 06/05/23 Krystyna Hernandez LISW [address] [place] [address] Blood and Marrow Transplant 02/23/24 Addiction Therapist Relationship Specialty Start Date End Date Cleo Feliz, GROUND DEFENCE OFFICER.HOGSHEAD STOCK CLERK [address] [facility] [place] [address] Nurse Practitioner Hematology/Oncology 06/05/23 Michael Boykin MD [address] [facility] [place] [address] Physician Hematology/Oncology 06/05/23 Ivania Jackman, STEVE [address] [facility] [place] [address] Specialty National Secretary Hematology/Oncology 06/05/23 Krystyna Hernandez LISW [address] [place] [address] Blood and Marrow Transplant 02/23/24 Addiction Therapist Relationship Specialty Start Date End Date Cleo Feliz, GROUND DEFENCE OFFICER.HOGSHEAD STOCK CLERK [address] [facility] [place] [address] Nurse Practitioner Hematology/Oncology 06/05/23 Michael Boykin MD [address] [facility] [place] [address] Physician Hematology/Oncology 06/05/23 Ivania Jackman, RN [address] [facility] [place] [address] Specialty National Secretary Hematology/Oncology 06/05/23 Krystyna Hernandez LISW [address] [place] [address] Blood and Marrow Transplant 02/23/24 Addiction Therapist Relationship Specialty Start Date End Date Cleo Feliz, GROUND DEFENCE OFFICER.HOGSHEAD STOCK CLERK [address] [facility] [place] [address] Nurse Practitioner Hematology/Oncology 06/05/23 Michael Boykin MD [address] [facility] [place] [address] Physician Hematology/Oncology 06/05/23 Ivania Jackman, RN [address] [facility] [place] [address] Specialty National Secretary Hematology/Oncology 06/05/23 Krystyna Hernandez LISW [address] [place] [address] Blood and Marrow Transplant 02/23/24 Addiction Therapist Relationship Specialty Start Date End Date Cleo Feliz, GROUND DEFENCE OFFICER.HOGSHEAD STOCK CLERK [address] [facility] [place] [address] Nurse Practitioner Hematology/Oncology 06/05/23 Michael Boykin MD [address] [facility] [place] [address] Physician Hematology/Oncology 06/05/23 Ivania Jackman, STEVE [address] [facility] [place] [address] Specialty National Secretary Hematology/Oncology 06/05/23 Krystyna Hernandez, [facility] [address] [place] [address] Blood and Marrow Transplant 02/23/24 Addiction Therapist Relationship Specialty Start Date End Date Cleo Feliz, GROUND DEFENCE OFFICER.HOGSHEAD STOCK CLERK [address] [facility] [place] [address] Nurse Practitioner Hematology/Oncology 06/05/23 Michael Boykin MD [address] [facility] [place] [address] Physician Hematology/Oncology 06/05/23 Ivania Jackman RN [address] [facility] [place] [address] Specialty National Secretary Hematology/Oncology 06/05/23 Krystyna Hernandez, [facility] [address] [place] [address] Blood and Marrow Transplant 02/23/24 Addiction Therapist Relationship Specialty Start Date End Date Cleo Feliz, GROUND DEFENCE OFFICER.HOGSHEAD STOCK CLERK [address] [facility] [place] [address] Nurse Practitioner Hematology/Oncology 06/05/23 Michael Boykin MD [address] [facility] [place] [address] Physician Hematology/Oncology 06/05/23 Ivania Jackman, STEVE [address] [facility] [place] [address] Specialty National Secretary Hematology/Oncology 06/05/23 Krystyna Hernandez LISW [address] [place] [address] Blood and Marrow Transplant 02/23/24 Addiction Therapist Relationship Specialty Start Date End Date Cleo Feliz, GROUND DEFENCE OFFICER.HOGSHEAD STOCK CLERK [address] [facility] [place] [address] Nurse Practitioner Hematology/Oncology 06/05/23 Michael Boykin MD [address] [facility] [place] [address] Physician Hematology/Oncology 06/05/23 Ivania Jackman RN [address] [facility] [place] [address] Specialty National Secretary Hematology/Oncology 06/05/23 Krystyna Hernandez LISW [address] [place] [address] Blood and Marrow Transplant 02/23/24 Martina Marshall RN [address] [address] Specialty National Secretary Blood and Marrow Transplant 04/06/24 07/05/24 [place] [address] [place] [address] Physician Blood and Marrow Transplant 04/06/24 Addiction Therapist Relationship Specialty Start Date End Date Cleo Feliz, GROUND DEFENCE OFFICER.HOGSHEAD STOCK CLERK [address] [facility] [place] [address] Nurse Practitioner Hematology/Oncology 06/05/23 Michael Boykin MD [address] [facility] [place] [address] Physician Hematology/Oncology 06/05/23 Ivania Jackman, STEVE [address] [facility] [place] [address] Specialty National Secretary Hematology/Oncology 06/05/23 Krystyna Hernandez LISW [address] [place] [address] Blood and Marrow Transplant 02/23/24 Martina Marshall RN [address] [address] Specialty National Secretary Blood and Marrow Transplant 04/06/24 07/05/24 [place] [address] [place] [address] Physician Blood and Marrow Transplant 04/06/24 Addiction Therapist Relationship Specialty Start Date End Date Cleo Feliz, GROUND DEFENCE OFFICER.HOGSHEAD STOCK CLERK [address] [facility] [place] [address] Nurse Practitioner Hematology/Oncology 06/05/23 Michael Boykin MD [address] [facility] [place] [address] Physician Hematology/Oncology 06/05/23 Ivania Jackman RN [address] [facility] [place] [address] Specialty National Secretary Hematology/Oncology 06/05/23 Krystyna Hernandez LISW [address] [place] [address] Blood and Marrow Transplant 02/23/24 Martina Marshall RN [address] [address] Specialty National Secretary Blood and Marrow Transplant 04/06/24 07/05/24 [place] [address] [place] [address] Physician Blood and Marrow Transplant 04/06/24 Addiction Therapist Relationship Specialty Start Date End Date Cleo Feliz, GROUND DEFENCE OFFICER.HOGSHEAD STOCK CLERK [address] [facility] [place] [address] Nurse Practitioner Hematology/Oncology 06/05/23 Michael Boykin MD [address] [facility] [place] [address] Physician Hematology/Oncology 06/05/23 Ivania Jackman, RN [address] [facility] [place] [address] Specialty National Secretary Hematology/Oncology 06/05/23 Krystyna Hernandez LISW [address] [place] [address] Blood and Marrow Transplant 02/23/24 Martina Marshall RN [address] [address] Specialty National Secretary Blood and Marrow Transplant 04/06/24 07/05/24 [place] [address] [place] [address] Physician Blood and Marrow Transplant 04/06/24 Addiction Therapist Relationship Specialty Start Date End Date Cleo Feliz, GROUND DEFENCE OFFICER.HOGSHEAD STOCK CLERK [address] [facility] [place] [address] Nurse Practitioner Hematology/Oncology 06/05/23 Michael Boykin MD [address] [facility] [place] [address] Physician Hematology/Oncology 06/05/23 Ivania Jackman, RN [address] [facility] [place] [address] Specialty National Secretary Hematology/Oncology 06/05/23 Krystyna Hernandez LISW [address] [place] [address] Blood and Marrow Transplant 02/23/24 Martina Marshall RN [address] [address] Specialty National Secretary Blood and Marrow Transplant 04/06/24 07/05/24 [place] [address] [place] [address] Physician Blood and Marrow Transplant 04/06/24 Addiction Therapist Relationship Specialty Start Date End Date Cleo Feliz, GROUND DEFENCE OFFICER.HOGSHEAD STOCK CLERK [address] [facility] [place] [address] Nurse Practitioner Hematology/Oncology 06/05/23 Michael Boykin MD [address] [facility] [place] [address] Physician Hematology/Oncology 06/05/23 Ivania Jackman, STEVE [address] [place] [address] [place] [address] Specialty National Secretary Hematology/Oncology 06/05/23 Krystyna Hernandez LISW [address] [place] [address] Blood and Marrow Transplant 02/23/24 Martina Marshall RN [address] [address] Specialty National Secretary Blood and Marrow Transplant 04/06/24 07/05/24 [place] [address] [place] [address] Physician Blood and Marrow Transplant 04/06/24 Addiction Therapist Relationship Specialty Start Date End Date Cleo Feliz GROUND DEFENCE OFFICER.HOGSHEAD STOCK CLERK [address] [facility] [place] [address] Nurse Practitioner Hematology/Oncology 06/05/23 Michael Boykin MD [address] [facility] [place] [address] Physician Hematology/Oncology 06/05/23 Ivania Jackman, STEVE [address] [facility] [place] [address] Specialty National Secretary Hematology/Oncology 06/05/23 Krystyna Hernandez LISW [address] [place] [address] Blood and Marrow Transplant 02/23/24 Martina Marshall RN [address] [address] Specialty National Secretary Blood and Marrow Transplant 04/06/24 07/05/24 [place] [address] [place] [address] Physician Blood and Marrow Transplant 04/06/24 Addiction Therapist Relationship Specialty Start Date End Date Cleo Feliz, GROUND DEFENCE OFFICER.HOGSHEAD STOCK CLERK [address] [facility] [place] [address] Nurse Practitioner Hematology/Oncology 06/05/23 Michael Boykin MD [address] [facility] [place] [address] Physician Hematology/Oncology 06/05/23 Ivania Jackman, RN [address] [facility] [place] [address] Specialty National Secretary Hematology/Oncology 06/05/23 Krystyna Hernandez LISW [address] [place] [address] Blood and Marrow Transplant 02/23/24 Martina Marshall RN [address] [address] Specialty National Secretary Blood and Marrow Transplant 04/06/24 07/05/24 [place] [address] [place] [id number] Physician Blood and Marrow Transplant 04/06/24 Addiction Therapist Relationship Specialty Start Date End Date Cleo Feliz, GROUND DEFENCE OFFICER.HOGSHEAD STOCK CLERK [address] [facility] [place] [address] Nurse Practitioner Hematology/Oncology 06/05/23 Michael Boykin MD [address] [facility] [place] [address] Physician Hematology/Oncology 06/05/23 Ivania Jackman, STEVE [address] [facility] [place] [address] Specialty National Secretary Hematology/Oncology 06/05/23 Krystyna Hernandez LISW [address] [place] [address] Blood and Marrow Transplant 02/23/24 Martina Marshall RN [address] [address] Specialty National Secretary Blood and Marrow Transplant 04/06/24 07/05/24 [place] [address] [place] [id number] Physician Blood and Marrow Transplant 04/06/24 Addiction Therapist Relationship Specialty Start Date End Date Cleo Feliz, GROUND DEFENCE OFFICER.HOGSHEAD STOCK CLERK [address] [facility] [place] [address] Nurse Practitioner Hematology/Oncology 06/05/23 Michael Boykin MD [address] [place] [address] [place] [address] Physician Hematology/Oncology 06/05/23 Ivania Jackman, RN [address] [facility] [place] [address] Specialty National Secretary Hematology/Oncology 06/05/23 Krystyna Hernandez LISW-S [address] [place] [address] Blood and Marrow Transplant 02/23/24 Martina Marshall RN [address] [address] Specialty National Secretary Blood and Marrow Transplant 04/06/24 07/05/24 [place] [address] [place] [address] Physician Blood and Marrow Transplant 04/06/24 Addiction Therapist Relationship Specialty Start Date End Date Cleo Feliz, GROUND DEFENCE OFFICER.HOGSHEAD STOCK CLERK [address] [facility] [place] [address] Nurse Practitioner Hematology/Oncology 06/05/23 Michael Boykin MD [address] [place] [address] [place] [address] Physician Hematology/Oncology 06/05/23 Ivania Jackman, STEVE [address] [facility] [place] [address] Specialty National Secretary Hematology/Oncology 06/05/23 Krystyna Hernandez LISW-S [address]1965 [place] [address] Blood and Marrow Transplant 02/23/24 Martina Marshall RN [address] [place] [id number] Specialty National Secretary Blood and Marrow Transplant 04/06/24 07/05/24 [place] [address] [place] [id number] Physician Blood and Marrow Transplant 04/06/24 Addiction Therapist Relationship Specialty Start Date End Date Cleo Feliz, GROUND DEFENCE OFFICER.HOGSHEAD STOCK CLERK [address] [facility] [place] [address] Nurse Practitioner Hematology/Oncology 06/05/23 Michael Boykin MD [address] [facility] [place] [address] Physician Hematology/Oncology 06/05/23 Ivania Jackman, STEVE [address] [facility] [place] [address] Specialty National Secretary Hematology/Oncology 06/05/23 Krystyna Hernandez LISW-S [address] [place] [address] Blood and Marrow Transplant 02/23/24 Martina Marshall RN [address] [address] Specialty National Secretary Blood and Marrow Transplant 04/06/24 06/18/24 [place] [address] [place] [address] Physician Blood and Marrow Transplant 04/06/24 Addiction Therapist Relationship Specialty Start Date End Date Cleo Feliz, GROUND DEFENCE OFFICER.HOGSHEAD STOCK CLERK [address] [facility] [place] [address] Nurse Practitioner Hematology/Oncology 06/05/23 Michael Boykin MD [address] [facility] [place] [address] Physician Hematology/Oncology 06/05/23 Ivania Jackman, STEVE [address] [facility] [address] [place] [address] Specialty National Secretary Hematology/Oncology 06/05/23 Krystyna Hernandez LISW-Elias [address] [place], [place] [id number] Blood and Marrow Transplant 02/23/24 Martina Marshall RN [address] [address] Specialty National Secretary Blood and Marrow Transplant 04/06/24 06/18/24 [place] [address] [place] [address] Physician Blood and Marrow Transplant 04/06/24 Team Status: Inactive Member Role Status Dates Chiquita Rivera MD FACS Attending Provider Active Start: June 23, 2024 End: June 23, 2024 Addiction Therapist Relationship Specialty Start Date End Date Cleo Feliz, GROUND DEFENCE OFFICER.HOGSHEAD STOCK CLERK [address] [facility] [place] [address] Nurse Practitioner Hematology/Oncology 06/05/23 Michael Boykin MD [address] [facility] [place] [address] Physician Hematology/Oncology 06/05/23 Ivania Jackman, STEVE [address] [facility] [place] [address] Specialty National Secretary Hematology/Oncology 06/05/23 [place] [address] [place] [address] Physician Blood and Marrow Transplant 04/06/24 Giana Newton LISW [address] [place] [address] Custom Feed Mill Operator Helper 06/21/24 09/02/24 Addiction Therapist Relationship Specialty Start Date End Date Cleo Feliz, GROUND DEFENCE OFFICER.HOGSHEAD STOCK CLERK [address] [facility] [place] [address] Nurse Practitioner Hematology/Oncology 06/05/23 Michael Boykin MD [address] [place] [address] [place] [address] Physician Hematology/Oncology 06/05/23 Ivania Jackman, STEVE [address] [place] [address] [place] [address] Specialty National Secretary Hematology/Oncology 06/05/23 Krystyna Hernandez LISW-S [address] [place] [id number] Blood and Marrow Transplant 02/23/24 06/20/24 Martina Marshall RN [address] [address] Specialty National Secretary Blood and Marrow Transplant 04/06/24 06/18/24 [place] [address] [place] [address] Physician Blood and Marrow Transplant 04/06/24 Addiction Therapist Relationship Specialty Start Date End Date Cleo Feliz, GROUND DEFENCE OFFICER.HOGSHEAD STOCK CLERK [address] [place] [address] [place] [address] Nurse Practitioner Hematology/Oncology 06/05/23 Michael Boykin MD [address] [place] [address] [place] [address] Physician Hematology/Oncology 06/05/23 Ivania Jackman, STEVE [address] [facility] [place] [address] Specialty National Secretary Hematology/Oncology 06/05/23 Krystyna Hernandez LISW-S [address] [place] [address] Blood and Marrow Transplant 02/23/24 06/20/24 Addiction Therapist Relationship Specialty Start Date End Date Cleo Feliz, GROUND DEFENCE OFFICER.HOGSHEAD STOCK CLERK [address] [facility] [place] [address] Nurse Practitioner Hematology/Oncology 06/05/23 Michael Boykin MD [address] [facility] [place] [address] Physician Hematology/Oncology 06/05/23 Ivania Jackman, STEVE [address] [facility] [place] [address] Specialty National Secretary Hematology/Oncology 06/05/23 Krystyna Hernandez LISW-Elias [address] [place] [address] Blood and Marrow Transplant 02/23/24 06/20/24 Addiction Therapist Relationship Specialty Start Date End Date Cleo Feliz, GROUND DEFENCE OFFICER.HOGSHEAD STOCK CLERK [address] [facility] [place] [address] Nurse Practitioner Hematology/Oncology 06/05/23 Michael Boykin MD [address] [facility] [place] [address] Physician Hematology/Oncology 06/05/23 Ivania Jackman, RN [address] [facility] [place] [address] Specialty National Secretary Hematology/Oncology 06/05/23 Addiction Therapist Relationship Specialty Start Date End Date Cleo Feliz, GROUND DEFENCE OFFICER.HOGSHEAD STOCK CLERK [address] [facility] [place] [address] Nurse Practitioner Hematology/Oncology 06/05/23 Michael Boykin MD [address] [facility] [place] [address] Physician Hematology/Oncology 06/05/23 Ivania Jackman, STEVE [address] [facility] [place] [address] Specialty National Secretary Hematology/Oncology 06/05/23 Addiction Therapist Relationship Specialty Start Date End Date Cleo Feliz, GROUND DEFENCE OFFICER.HOGSHEAD STOCK CLERK [address] [facility] [place] [address] Nurse Practitioner Hematology/Oncology 06/05/23 Michael Boykin MD [address] [facility] [place] [address] Physician Hematology/Oncology 06/05/23 Ivania Jackman, STEVE [address] [facility] [place] [address] Specialty National Secretary Hematology/Oncology 06/05/23 Addiction Therapist Relationship Specialty Start Date End Date Cleo Feliz, GROUND DEFENCE OFFICER.HOGSHEAD STOCK CLERK [address] [facility] [place] [address] Nurse Practitioner Hematology/Oncology 06/05/23 Michael Boykin MD [address] [facility] [place] [address] Physician Hematology/Oncology 06/05/23 Ivania Jackman, STEVE [address] [facility] [place] [address] Specialty National Secretary Hematology/Oncology 06/05/23 [place] [address] [place] [address] Physician Blood and Marrow Transplant 04/06/24 Giana Newton LISW [address] [place] [address] Custom Feed Mill Operator Helper 06/21/24 09/02/24 Addiction Therapist Relationship Specialty Start Date End Date lCeo Feliz, GROUND DEFENCE OFFICER.HOGSHEAD STOCK CLERK [address] [facility] [place] [address] Nurse Practitioner Hematology/Oncology 06/05/23 Michael Boykin MD [address] [facility] [place] [address] Physician Hematology/Oncology 06/05/23 [place] [address] [place] [address] Physician Blood and Marrow Transplant 04/06/24 Giana Newton LISW [address] [place] [address] Custom Feed Mill Operator Helper 06/21/24 09/02/24 Addiction Therapist Relationship Specialty [place] [address] [place] [address] PCP - General Hematology/Oncology 09/08/24 Cleo Feliz, GROUND DEFENCE OFFICER.HOGSHEAD STOCK CLERK [address] [facility] [place] [address] Nurse Practitioner Hematology/Oncology 06/05/23 Michael Boykin MD [address] [facility] [place] [address] Physician Hematology/Oncology 06/05/23 [place] [address] [place] [id number] Physician Blood and Marrow Transplant 04/06/24 Source Comments (unrecognize d section and content) In the event this informatio n is protected by the Federal Confidentiality of Alcohol and Drug Abuse Patient Records regulations: The Federal rules restrict any use of the information to criminally investigate or prosecute any alcohol or drug abuse patient.[facility] the event this information is protected by the Federal Confidentiality of Alcohol and Drug Abuse Patient Records regulations: The Federal rules restrict any use of the information to criminally investigate or prosecute any alcohol or drug abuse patient.[facility] the event this information is protected by the Federal Confidentiality of Alcohol and Drug Abuse Patient Records regulations: The Federal rules restrict any use of the information to criminally investigate or prosecute any alcohol or drug abuse patient.[facility] the event this information is protected by the Federal Confidentiality of Alcohol and Drug Abuse Patient Records regulations: The Federal rules restrict any use of the information to criminally investigate or prosecute any alcohol or drug abuse patient.[facility] the event this information is protected by the Federal Confidentiality of Alcohol and Drug Abuse Patient Records regulations: The Federal rules restrict any use of the information to criminally investigate or prosecute any alcohol or drug abuse patient.[facility] the event this information is protected by the Federal Confidentiality of Alcohol and Drug Abuse Patient Records regulations: The Federal rules restrict any use of the information to criminally investigate or prosecute any alcohol or drug abuse patient.[facility] the event this information is protected by the Federal Confidentiality of Alcohol and Drug Abuse Patient Records regulations: The Federal rules restrict any use of the information to criminally investigate or prosecute any alcohol or drug abuse patient.[facility] the event this information is protected by the Federal Confidentiality of Alcohol and Drug Abuse Patient Records regulations: The Federal rules restrict any use of the information to criminally investigate or prosecute any alcohol or drug abuse patient.[facility]In the event this information is protected by the Federal Confidentiality of Alcohol and Drug Abuse Patient Records regulations: The Federal rules restrict any use of the information to criminally investigate or prosecute any alcohol or drug abuse patient.[facility]In the event this information is protected by the Federal Confidentiality of Alcohol and Drug Abuse Patient Records regulations: The Federal rules restrict any use of the information to criminally investigate or prosecute any alcohol or drug abuse patient.[facility]In the event this information is protected by the Federal Confidentiality of Alcohol and Drug Abuse Patient Records regulations: The Federal rules restrict any use of the information to criminally investigate or prosecute any alcohol or drug abuse patient.[facility]In the event this information is protected by the Federal Confidentiality of Alcohol and Drug Abuse Patient Records regulations: The Federal rules restrict any use of the information to criminally investigate or prosecute any alcohol or drug abuse patient.[facility]In the event this information is protected by the Federal Confidentiality of Alcohol and Drug Abuse Patient Records regulations: The Federal rules restrict any use of the information to criminally investigate or prosecute any alcohol or drug abuse patient.[facility]In the event this information is protected by the Federal Confidentiality of Alcohol and Drug Abuse Patient Records regulations: The Federal rules restrict any use of the information to criminally investigate or prosecute any alcohol or drug abuse patient.[facility]In the event this information is protected by the Federal Confidentiality of Alcohol and Drug Abuse Patient Records regulations: The Federal rules restrict any use of the information to criminally investigate or prosecute any alcohol or drug abuse patient.[facility]In the event this information is protected by the Federal Confidentiality of Alcohol and Drug Abuse Patient Records regulations: The Federal rules restrict any use of the information to criminally investigate or prosecute any alcohol or drug abuse patient.[facility]In the event this information is protected by the Federal Confidentiality of Alcohol and Drug Abuse Patient Records regulations: The Federal rules restrict any use of the information to criminally investigate or prosecute any alcohol or drug abuse patient.[facility]In the event this information is protected by the Federal Confidentiality of Alcohol and Drug Abuse Patient Records regulations: The Federal rules restrict any use of the information to criminally investigate or prosecute any alcohol or drug abuse patient.[facility]In the event this information is protected by the Federal Confidentiality of Alcohol and Drug Abuse Patient Records regulations: The Federal rules restrict any use of the information to criminally investigate or prosecute any alcohol or drug abuse patient.[facility]In the event this information is protected by the Federal Confidentiality of Alcohol and Drug Abuse Patient Records regulations: The Federal rules restrict any use of the information to criminally investigate or prosecute any alcohol or drug abuse patient.[facility]In the event this information is protected by the Federal Confidentiality of Alcohol and Drug Abuse Patient Records regulations: The Federal rules restrict any use of the information to criminally investigate or prosecute any alcohol or drug abuse patient.[facility]hillIn the event this information is protected by the Federal Confidentiality of Alcohol and Drug Abuse Patient Records regulations: The Federal rules restrict any use of the information to criminally investigate or prosecute any alcohol or drug abuse patient.[facility]hillIn the event this information is protected by the Federal Confidentiality of Alcohol and Drug Abuse Patient Records regulations: The Federal rules restrict any use of the information to criminally investigate or prosecute any alcohol or drug abuse patient.[facility]hillIn the event this information is protected by the Federal Confidentiality of Alcohol and Drug Abuse Patient Records regulations: The Federal rules restrict any use of the information to criminally investigate or prosecute any alcohol or drug abuse patient.[facility]hillIn the event this information is protected by the Federal Confidentiality of Alcohol and Drug Abuse Patient Records regulations: The Federal rules restrict any use of the information to criminally investigate or prosecute any alcohol or drug abuse patient.[facility]hillIn the event this information is protected by the Federal Confidentiality of Alcohol and Drug Abuse Patient Records regulations: The Federal rules restrict any use of the information to criminally investigate or prosecute any alcohol or drug abuse patient.[facility]hillIn the event this information is protected by the Federal Confidentiality of Alcohol and Drug Abuse Patient Records regulations: The Federal rules restrict any use of the information to criminally investigate or prosecute any alcohol or drug abuse patient.[facility]hillIn the event this information is protected by the Federal Confidentiality of Alcohol and Drug Abuse Patient Records regulations: The Federal rules restrict any use of the information to criminally investigate or prosecute any alcohol or drug abuse patient.[facility]hillIn the event this information is protected by the Federal Confidentiality of Alcohol and Drug Abuse Patient Records regulations: The Federal rules restrict any use of the information to criminally investigate or prosecute any alcohol or drug abuse patient.[facility]hillIn the event this information is protected by the Federal Confidentiality of Alcohol and Drug Abuse Patient Records regulations: The Federal rules restrict any use of the information to criminally investigate or prosecute any alcohol or drug abuse patient.[facility]hillIn the event this information is protected by the Federal Confidentiality of Alcohol and Drug Abuse Patient Records regulations: The Federal rules restrict any use of the information to criminally investigate or prosecute any alcohol or drug abuse patient.[facility] the event this information is protected by the Federal Confidentiality of Alcohol and Drug Abuse Patient Records regulations: The Federal rules restrict any use of the information to criminally investigate or prosecute any alcohol or drug abuse patient.[facility]hillIn the event this information is protected by the Federal Confidentiality of Alcohol and Drug Abuse Patient Records regulations: The Federal rules restrict any use of the information to criminally investigate or prosecute any alcohol or drug abuse patient.[facility]hillIn the event this information is protected by the Federal Confidentiality of Alcohol and Drug Abuse Patient Records regulations: The Federal rules restrict any use of the information to criminally investigate or prosecute any alcohol or drug abuse patient.[facility]hillIn the event this information is protected by the Federal Confidentiality of Alcohol and Drug Abuse Patient Records regulations: The Federal rules restrict any use of the information to criminally investigate or prosecute any alcohol or drug abuse patient.[facility]hillIn the event this information is protected by the Federal Confidentiality of Alcohol and Drug Abuse Patient Records regulations: The Federal rules restrict any use of the information to criminally investigate or prosecute any alcohol or drug abuse patient.[facility]hillIn the event this information is protected by the Federal Confidentiality of Alcohol and Drug Abuse Patient Records regulations: The Federal rules restrict any use of the information to criminally investigate or prosecute any alcohol or drug abuse patient.[facility]hillIn the event this information is protected by the Federal Confidentiality of Alcohol and Drug Abuse Patient Records regulations: The Federal rules restrict any use of the information to criminally investigate or prosecute any alcohol or drug abuse patient.[facility]hillIn the event this information is protected by the Federal Confidentiality of Alcohol and Drug Abuse Patient Records regulations: The Federal rules restrict any use of the information to criminally investigate or prosecute any alcohol or drug abuse patient.[facility]hillIn the event this information is protected by the Federal Confidentiality of Alcohol and Drug Abuse Patient Records regulations: The Federal rules restrict any use of the information to criminally investigate or prosecute any alcohol or drug abuse patient.[facility]hillIn the event this information is protected by the Federal Confidentiality of Alcohol and Drug Abuse Patient Records regulations: The Federal rules restrict any use of the information to criminally investigate or prosecute any alcohol or drug abuse patient.[facility]hillIn the event this information is protected by the Federal Confidentiality of Alcohol and Drug Abuse Patient Records regulations: The Federal rules restrict any use of the information to criminally investigate or prosecute any alcohol or drug abuse patient.[facility]hillIn the event this information is protected by the Federal Confidentiality of Alcohol and Drug Abuse Patient Records regulations: The Federal rules restrict any use of the information to criminally investigate or prosecute any alcohol or drug abuse patient.[facility]hillIn the event this information is protected by the Federal Confidentiality of Alcohol and Drug Abuse Patient Records regulations: The Federal rules restrict any use of the information to criminally investigate or prosecute any alcohol or drug abuse patient.[facility]hillIn the event this information is protected by the Federal Confidentiality of Alcohol and Drug Abuse Patient Records regulations: The Federal rules restrict any use of the information to criminally investigate or prosecute any alcohol or drug abuse patient.[facility]hillIn the event this information is protected by the Federal Confidentiality of Alcohol and Drug Abuse Patient Records regulations: The Federal rules restrict any use of the information to criminally investigate or prosecute any alcohol or drug abuse patient.[facility]hillIn the event this information is protected by the Federal Confidentiality of Alcohol and Drug Abuse Patient Records regulations: The Federal rules restrict any use of the information to criminally investigate or prosecute any alcohol or drug abuse patient.[facility]hillIn the event this information is protected by the Federal Confidentiality of Alcohol and Drug Abuse Patient Records regulations: The Federal rules restrict any use of the information to criminally investigate or prosecute any alcohol or drug abuse patient.[facility]hillIn the event this information is protected by the Federal Confidentiality of Alcohol and Drug Abuse Patient Records regulations: The Federal rules restrict any use of the information to criminally investigate or prosecute any alcohol or drug abuse patient.[facility]hillIn the event this information is protected by the Federal Confidentiality of Alcohol and Drug Abuse Patient Records regulations: The Federal rules restrict any use of the information to criminally investigate or prosecute any alcohol or drug abuse patient.[facility]hillIn the event this information is protected by the Federal Confidentiality of Alcohol and Drug Abuse Patient Records regulations: The Federal rules restrict any use of the information to criminally investigate or prosecute any alcohol or drug abuse patient.[facility]hillIn the event this information is protected by the Federal Confidentiality of Alcohol and Drug Abuse Patient Records regulations: The Federal rules restrict any use of the information to criminally investigate or prosecute any alcohol or drug abuse patient.[facility]hillIn the event this information is protected by the Federal Confidentiality of Alcohol and Drug Abuse Patient Records regulations: The Federal rules restrict any use of the information to criminally investigate or prosecute any alcohol or drug abuse patient.[facility]hillIn the event this information is protected by the Federal Confidentiality of Alcohol and Drug Abuse Patient Records regulations: The Federal rules restrict any use of the information to criminally investigate or prosecute any alcohol or drug abuse patient.[facility]hillIn the event this information is protected by the Federal Confidentiality of Alcohol and Drug Abuse Patient Records regulations: The Federal rules restrict any use of the information to criminally investigate or prosecute any alcohol or drug abuse patient.[facility]hillIn the event this information is protected by the Federal Confidentiality of Alcohol and Drug Abuse Patient Records regulations: The Federal rules restrict any use of the information to criminally investigate or prosecute any alcohol or drug abuse patient.[facility]hillIn the event this information is protected by the Federal Confidentiality of Alcohol and Drug Abuse Patient Records regulations: The Federal rules restrict any use of the information to criminally investigate or prosecute any alcohol or drug abuse patient.[facility] the event this information is protected by the Federal Confidentiality of Alcohol and Drug Abuse Patient Records regulations: The Federal rules restrict any use of the information to criminally investigate or prosecute any alcohol or drug abuse patient.[facility]In the event this information is protected by the Federal Confidentiality of Alcohol and Drug Abuse Patient Records regulations: The Federal rules restrict any use of the information to criminally investigate or prosecute any alcohol or drug abuse patient.[facility]In the event this information is protected by the Federal Confidentiality of Alcohol and Drug Abuse Patient Records regulations: The Federal rules restrict any use of the information to criminally investigate or prosecute any alcohol or drug abuse patient.[facility]In the event this information is protected by the Federal Confidentiality of Alcohol and Drug Abuse Patient Records regulations: The Federal rules restrict any use of the information to criminally investigate or prosecute any alcohol or drug abuse patient.[facility]hillIn the event this information is protected by the Federal Confidentiality of Alcohol and Drug Abuse Patient Records regulations: The Federal rules restrict any use of the information to criminally investigate or prosecute any alcohol or drug abuse patient.[facility]hillIn the event this information is protected by the Federal Confidentiality of Alcohol and Drug Abuse Patient Records regulations: The Federal rules restrict any use of the information to criminally investigate or prosecute any alcohol or drug abuse patient.[facility]hillIn the event this information is protected by the Federal Confidentiality of Alcohol and Drug Abuse Patient Records regulations: The Federal rules restrict any use of the information to criminally investigate or prosecute any alcohol or drug abuse patient.[facility]hillIn the event this information is protected by the Federal Confidentiality of Alcohol and Drug Abuse Patient Records regulations: The Federal rules restrict any use of the information to criminally investigate or prosecute any alcohol or drug abuse patient.[facility]hillIn the event this information is protected by the Federal Confidentiality of Alcohol and Drug Abuse Patient Records regulations: The Federal rules restrict any use of the information to criminally investigate or prosecute any alcohol or drug abuse patient.[facility]hillIn the event this information is protected by the Federal Confidentiality of Alcohol and Drug Abuse Patient Records regulations: The Federal rules restrict any use of the information to criminally investigate or prosecute any alcohol or drug abuse patient.[facility]hillIn the event this information is protected by the Federal Confidentiality of Alcohol and Drug Abuse Patient Records regulations: The Federal rules restrict any use of the information to criminally investigate or prosecute any alcohol or drug abuse patient.[facility]hillIn the event this information is protected by the Federal Confidentiality of Alcohol and Drug Abuse Patient Records regulations: The Federal rules restrict any use of the information to criminally investigate or prosecute any alcohol or drug abuse patient.[facility]hillIn the event this information is protected by the Federal Confidentiality of Alcohol and Drug Abuse Patient Records regulations: The Federal rules restrict any use of the information to criminally investigate or prosecute any alcohol or drug abuse patient.[facility]hillIn the event this information is protected by the Federal Confidentiality of Alcohol and Drug Abuse Patient Records regulations: The Federal rules restrict any use of the information to criminally investigate or prosecute any alcohol or drug abuse patient.[facility]hillIn the event this information is protected by the Federal Confidentiality of Alcohol and Drug Abuse Patient Records regulations: The Federal rules restrict any use of the information to criminally investigate or prosecute any alcohol or drug abuse patient.[facility]hillIn the event this information is protected by the Federal Confidentiality of Alcohol and Drug Abuse Patient Records regulations: The Federal rules restrict any use of the information to criminally investigate or prosecute any alcohol or drug abuse patient.[facility]hillIn the event this information is protected by the Federal Confidentiality of Alcohol and Drug Abuse Patient Records regulations: The Federal rules restrict any use of the information to criminally investigate or prosecute any alcohol or drug abuse patient.[facility]hillIn the event this information is protected by the Federal Confidentiality of Alcohol and Drug Abuse Patient Records regulations: The Federal rules restrict any use of the information to criminally investigate or prosecute any alcohol or drug abuse patient.[facility]hillIn the event this information is protected by the Federal Confidentiality of Alcohol and Drug Abuse Patient Records regulations: The Federal rules restrict any use of the information to criminally investigate or prosecute any alcohol or drug abuse patient.[facility]hillIn the event this information is protected by the Federal Confidentiality of Alcohol and Drug Abuse Patient Records regulations: The Federal rules restrict any use of the information to criminally investigate or prosecute any alcohol or drug abuse patient.[facility]hillIn the event this information is protected by the Federal Confidentiality of Alcohol and Drug Abuse Patient Records regulations: The Federal rules restrict any use of the information to criminally investigate or prosecute any alcohol or drug abuse patient.[facility]hillIn the event this information is protected by the Federal Confidentiality of Alcohol and Drug Abuse Patient Records regulations: The Federal rules restrict any use of the information to criminally investigate or prosecute any alcohol or drug abuse patient.[facility]hillIn the event this information is protected by the Federal Confidentiality of Alcohol and Drug Abuse Patient Records regulations: The Federal rules restrict any use of the information to criminally investigate or prosecute any alcohol or drug abuse patient.[facility]hillIn the event this information is protected by the Federal Confidentiality of Alcohol and Drug Abuse Patient Records regulations: The Federal rules restrict any use of the information to criminally investigate or prosecute any alcohol or drug abuse patient.[facility] the event this information is protected by the Federal Confidentiality of Alcohol and Drug Abuse Patient Records regulations: The Federal rules restrict any use of the information to criminally investigate or prosecute any alcohol or drug abuse patient.[facility]In the event this information is protected by the Federal Confidentiality of Alcohol and Drug Abuse Patient Records regulations: The Federal rules restrict any use of the information to criminally investigate or prosecute any alcohol or drug abuse patient.[facility]hillIn the event this information is protected by the Federal Confidentiality of Alcohol and Drug Abuse Patient Records regulations: The Federal rules restrict any use of the information to criminally investigate or prosecute any alcohol or drug abuse patient.[facility]hillIn the event this information is protected by the Federal Confidentiality of Alcohol and Drug Abuse Patient Records regulations: The Federal rules restrict any use of the information to criminally investigate or prosecute any alcohol or drug abuse patient.[facility]hillIn the event this information is protected by the Federal Confidentiality of Alcohol and Drug Abuse Patient Records regulations: The Federal rules restrict any use of the information to criminally investigate or prosecute any alcohol or drug abuse patient.[facility]hillIn the event this information is protected by the Federal Confidentiality of Alcohol and Drug Abuse Patient Records regulations: The Federal rules restrict any use of the information to criminally investigate or prosecute any alcohol or drug abuse patient.[facility]hillIn the event this information is protected by the Federal Confidentiality of Alcohol and Drug Abuse Patient Records regulations: The Federal rules restrict any use of the information to criminally investigate or prosecute any alcohol or drug abuse patient.[facility]hillIn the event this information is protected by the Federal Confidentiality of Alcohol and Drug Abuse Patient Records regulations: The Federal rules restrict any use of the information to criminally investigate or prosecute any alcohol or drug abuse patient.[facility]hillIn the event this information is protected by the Federal Confidentiality of Alcohol and Drug Abuse Patient Records regulations: The Federal rules restrict any use of the information to criminally investigate or prosecute any alcohol or drug abuse patient.[facility]hillIn the event this information is protected by the Federal Confidentiality of Alcohol and Drug Abuse Patient Records regulations: The Federal rules restrict any use of the information to criminally investigate or prosecute any alcohol or drug abuse patient.[facility]In the event this information is protected by the Federal Confidentiality of Alcohol and Drug Abuse Patient Records regulations: The Federal rules restrict any use of the information to criminally investigate or prosecute any alcohol or drug abuse patient.[facility]hillIn the event this information is protected by the Federal Confidentiality of Alcohol and Drug Abuse Patient Records regulations: The Federal rules restrict any use of the information to criminally investigate or prosecute any alcohol or drug abuse patient.[facility]hillIn the event this information is protected by the Federal Confidentiality of Alcohol and Drug Abuse Patient Records regulations: The Federal rules restrict any use of the information to criminally investigate or prosecute any alcohol or drug abuse patient.[facility]hillIn the event this information is protected by the Federal Confidentiality of Alcohol and Drug Abuse Patient Records regulations: The Federal rules restrict any use of the information to criminally investigate or prosecute any alcohol or drug abuse patient.[facility]hillIn the event this information is protected by the Federal Confidentiality of Alcohol and Drug Abuse Patient Records regulations: The Federal rules restrict any use of the information to criminally investigate or prosecute any alcohol or drug abuse patient.[facility]hillIn the event this information is protected by the Federal Confidentiality of Alcohol and Drug Abuse Patient Records regulations: The Federal rules restrict any use of the information to criminally investigate or prosecute any alcohol or drug abuse patient.[facility]hillIn the event this information is protected by the Federal Confidentiality of Alcohol and Drug Abuse Patient Records regulations: The Federal rules restrict any use of the information to criminally investigate or prosecute any alcohol or drug abuse patient.[facility]hillIn the event this information is protected by the Federal Confidentiality of Alcohol and Drug Abuse Patient Records regulations: The Federal rules restrict any use of the information to criminally investigate or prosecute any alcohol or drug abuse patient.[facility]In the event this information is protected by the Federal Confidentiality of Alcohol and Drug Abuse Patient Records regulations: The Federal rules restrict any use of the information to criminally investigate or prosecute any alcohol or drug abuse patient.[facility]In the event this information is protected by the Federal Confidentiality of Alcohol and Drug Abuse Patient Records regulations: The Federal rules restrict any use of the information to criminally investigate or prosecute any alcohol or drug abuse patient.[facility]In the event this information is protected by the Federal Confidentiality of Alcohol and Drug Abuse Patient Records regulations: The Federal rules restrict any use of the information to criminally investigate or prosecute any alcohol or drug abuse patient.[facility]hillIn the event this information is protected by the Federal Confidentiality of Alcohol and Drug Abuse Patient Records regulations: The Federal rules restrict any use of the information to criminally investigate or prosecute any alcohol or drug abuse patient.[facility]hillIn the event this information is protected by the Federal Confidentiality of Alcohol and Drug Abuse Patient Records regulations: The Federal rules restrict any use of the information to criminally investigate or prosecute any alcohol or drug abuse patient.[facility]In the event this information is protected by the Federal Confidentiality of Alcohol and Drug Abuse Patient Records regulations: The Federal rules restrict any use of the information to criminally investigate or prosecute any alcohol or drug abuse patient.[facility]hillIn the event this information is protected by the Federal Confidentiality of Alcohol and Drug Abuse Patient Records regulations: The Federal rules restrict any use of the information to criminally investigate or prosecute any alcohol or drug abuse patient.[facility] Reason for Visit (unrecogniz ed section and content) Reason Comments Lymphoma New patient consulta tion Reason Comments 2nd opinion path Reason Comments Care Coordination Pathology Update Reason Comments Lymphoma Reason Comments Consult Specialty Diagnoses / Procedures Referred By Contac t Referred To Contact Diagnoses Diffuse large B-cell lymphoma of lymph nodes of multiple regions (HCC) Procedures CONSULT TO HEMATOLOGY/ONCOLOGY OFFICE/OUTPATIENT [facility] 60-74 MINUTES Michael Boykin MD [address] [place] [address] [place] [address] Referral ID Status Reason Start Date Expiration Date V isits Requested Visits Authorized [id number] Closed PCP Requested Referral 05/22/2023 05/21/2024 1 1 Reason Comments National Secretary - Other Reason Comments Orders Reason Comments Care Coordination Antiemetics Reason Comments Lymphoma 2 week follow up Reason Comments National Secretary - Other Uric Acid Resul ts Reason Comments National Secretary - Other Medication Prob carmencita Reason Comments Care Coordination Pathology Results Specialty Diagnoses / Procedures [facility] Referred To Contact Diagnoses 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) Niesha Galdamez MD [address] [place] [address] [place] [address] [address] [place] [id number] Referral ID Status Reason Start Date Expiration Date V isits Requested Visits Authorized [id number] Authorized 05/31/2023 08/29/2023 99 99 Reason Comments Care Coordination C1D1 treatment follo w up call Reason Comments Appointment Reason Comments Research IRB [id number] Informed Consent Specialty Diagnoses / Procedures [facility] Referred To Contact Hematology / HEMATOLOGY/ONCOLOGY Diagnoses lab/port Procedures LAB/PORT Michael Boykin MD [address] [facility] [place] [address] Nate Jordan Mc [address] [place] [address] Referral ID Status Reason Start Date Expiration Date V isits Requested Visits Authorized [id number] Authorized 06/17/2023 11/02/2023 99 99 Reason Comments [...] Patient Specialty Diagnoses / Procedures [facility] Referred To Contact Hematology Diagnoses Diagnosis: Follicular Lymphoma Diagnosed [facility]: [facility] Referring Dr/Office: Self Biopsy performed: 12/17/23 Facility Bx done at: [facility] Imaging done: PET 11/18/23 Facility Imaging done at: [facility] Procedures NEW PATIENT SECOND OPINION Self, Self Cici, Doracs Lundberg MD [address] [place] [address] Referral ID Status Reason Start Date Expiration Date V isits Requested Visits Authorized [id number] New Request 01/28/2024 02/21/2025 1 1 Reason Onset Date Comments Population Health Navigation Outreach 02/02/2024 ACO NO PCP Reason Comments National Secretary - Other Next Steps Reason Comments Established Patient Reason Comments Nm Pet Request Reason Comments Social Work Services Reason Comments Benefits Investigation Reason Comments MNC for IEC Reason Onset Date Comments Simulation Request Form 03/15/2024 Reason Comments Patient Education Reason Comments Radiotherapy On-treatment Visit Specialty Diagnoses / Procedures Referred By Brianac t Referred To Contact Diagnoses Diffuse large B-cell lymphoma of lymph nodes of multiple regions (HCC) Niesha Galdamez MD [address] [place] [address] [place] [address] [address] [place] [id number] Referral ID Status Reason Start Date Expiration Date V isits Requested Visits Authorized [id number] Authorized 02/18/2024 05/18/2024 99 99 Reason Comments Returning Patient's Call Reason Comments Patient Update Reason Comments Patient Update Weekly Labs Reason Comments New Patient Reason Comments National Secretary - Other Appointment Reason Comments Reason Comments Radiology NM Specialty Diagnoses / Procedures Referred By Contac t Referred To Contact MOLECULAR & FUNCTIONAL IMAGING Diagnoses Diffuse large B-cell lymphoma of lymph nodes of multiple regions (HCC) Procedures NM PET/CT SKULL-THIGH SUBSEQUENT PET IMAGING CT ATTENUATION SKULL BASE MID-THIGH Michael Boykin MD [address] [place] [address] [place] [address] Molecular & Functional Imaging [address] [place] [address] Referral ID Status Reason Start Date Expiration Date V isits Requested Visits Authorized [id number] Closed Auto-Generate d Referral 06/17/2024 07/17/2025 1 1 Specialty Diagnoses / Procedures Referred By Contac t Referred To Contact MOLECULAR & FUNCTIONAL IMAGING Diagnoses Diffuse large B-cell lymphoma, unspecified body region (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 Procedures NM PET/CT SKULL-THIGH SUBSEQUENT PET IMAGING CT ATTENUATION SKULL BASE MID-THIGH Niesha Galdamez MD [address] [place] [address] [facility] [address] [place] [address] Referral ID Status Reason Start Date Expiration Date V isits Requested Visits Authorized [id number] Closed Auto-Generate d Referral 04/06/2024 05/06/2025 1 1 Specialty Diagnoses / Procedures Referred By Contac t Referred To Contact MOLECULAR & FUNCTIONAL IMAGING Diagnoses 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) Procedures NM PET/CT SKULL-THIGH SUBSEQUENT PET IMAGING CT ATTENUATION SKULL BASE MID-THIGH Niesha Galdamez MD [address] [place] [address] [facility] [address] [place] [address] Referral ID Status Reason Start Date Expiration Date V isits Requested Visits Authorized [id number] Closed Auto-Generate d Referral 01/20/2024 02/18/2025 1 1 Specialty Diagnoses / Procedures Referred By Contac t Referred To Contact MOLECULAR & FUNCTIONAL IMAGING Diagnoses Diffuse large B-cell lymphoma, unspecified body region (HCC) Procedures NM PET/CT SKULL-THIGH SUBSEQUENT PET IMAGING CT ATTENUATION SKULL BASE MID-THIGH Niesha Galdamez MD [address] [place] [address] [facility] [address] [place] [address] Referral ID Status Reason Start Date Expiration Date V isits Requested Visits Authorized [id number] Closed Auto-Generate d Referral 01/21/2024 02/18/2025 1 1 Specialty Diagnoses / Procedures Referred By Contac t Referred To Contact MOLECULAR & FUNCTIONAL IMAGING Diagnoses Diffuse large B-cell lymphoma, unspecified body region (HCC) Procedures NM PET/CT SKULL-THIGH SUBSEQUENT PET IMAGING CT ATTENUATION SKULL BASE MID-THIGH Cleo Feliz, [employer] OFFIC[employer].[address] [place] [address] [facility] [address] [place] [address] Referral ID Status Reason Start Date Expiration Date V isits Requested Visits Authorized [id number] Closed Auto-Generate d Referral 10/28/2023 11/26/2024 1 1 Specialty Diagnoses / Procedures Referred By Sergio astorga Referred To Contact MOLECULAR & FUNCTIONAL IMAGING Diagnoses 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) Procedures NM PET/CT SKULL-THIGH SUBSEQUENT PET IMAGING CT ATTENUATION SKULL BASE MID-THIGH Michael Boykin MD [address] [place] [address] [place] [address] [facility] [address] [place], [place] [id number] Referral ID Status Reason Start Date Expiration Date V isits Requested Visits Authorized [id number] Closed Auto-Generate d Referral 09/02/2023 10/01/2024 1 1 Reason Comments Care Coordination Paxlovid Question Reason Onset Date Comments Population Health Navigation Outreach 09/08/2024 ACO No [facility] 11.4.2023 - Share[employer] Worksheet - Multiple Locations Goals (unrecognized section and content) Goals may be documented in a n alternate section FOR RECORDS PERTAINING TO PATIENTS WHO ARE [...] BE BASED ON THE PRIMARY CLINICAL RECORDS. [employer] provides no warranty or guarantee of the accuracy or completeness of information in this document.
--- NOTE | 2024-09-27 00:09 | ED_ITS ---
HPI - Fever General Chief Complaint: Fever Stated Complaint: fever Time Seen by Provider: 09/27/24 00:00 Source: patient Mode of arrival: walk-in Limitations: no limitations History of Present Illness HPI Narrative: past history of lymphoma in remission. Covid 19 last week. Has improved. Cough and congestion past few days and draining sinuses that are clear. No sore throat. mild body aches. Not short of breath. No nausea or vomiting. Came in because of the fever Related Data Home Medications ?Medication ?Instructions ?Recorded ?Confirmed levothyroxine 125 mcg capsule 125 mcg PO DAILY 05/01/23 09/26/24 multivitamin (Daily Multi-Vitamin 1 tab PO QAM 05/01/23 09/26/24 tablet) krill oil 500 mg capsule 500 mg PO DAILY 12/12/23 09/26/24 acyclovir 400 mg tablet 400 mg PO BID 06/14/24 09/26/24 Allergies Allergy/AdvReac Type Severity Reaction Status Date / Time allopurinol Allergy Rash Verified 09/26/24 23:46 Review of Systems ROS Status of ROS 10 or more systems reviewed and unremark able except as noted in history and below [facility] Medical History (Updated 09/27/24 @ 02:46 by Robe Steward MD) Immunotherapy ?Z29.89 - Encounter for other specified prophylactic measures (ICD-10) GERD (gastroesophageal reflux disease) ?K21.9 - Gastro-esophageal reflux disease without esophagitis (ICD-10) Large B-cell lymphoma ?C85.10 - Unspecified B-cell lymphoma, unspecified site (ICD-10) Lymphoma ?C85.90 - Non-Hodgkin lymphoma, unspecified, unspecified site (ICD-10) Mass of right inguinal region ?R19.09 - Other intra-abdominal and pelvic swelling, mass and lump (ICD-10) 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 ?C85.95 - Non-Hodgkin lymphoma, unspecified, lymph nodes of inguinal region and lower limb (ICD-10) Non Hodgkin's lymphoma ?C85.90 - Non-Hodgkin lymphoma, unspecified, unspecified site (ICD-10) Back pain ?M54.9 - Dorsalgia, unspecified (ICD-10) Heartburn ?R12 - Heartburn (ICD-10) Hypothyroidism ?E03.9 - Hypothyroidism, unspecified (ICD-10) Lymph node symptom ?R09.89 - Other specified symptoms and signs involving the circulatory and respiratory systems (ICD-10) Surgical History (Updated 12/12/23 @ 11:48 by Sandra Cano NP) H/O lymph node biopsy ?Z98.890 - Other specified postprocedural states (ICD-10) History of bronchoscopy ?Z98.890 - Other specified postprocedural states (ICD-10) History of thoracentesis ?Z98.890 - Other specified postprocedural states (ICD-10) H/O insertion of central venous access port ?Z95.828 - Presence of other vascular implants and grafts (ICD-10) History of lymph node excision ?Z98.890 - Other specified postprocedural states (ICD-10) Family History (Updated 05/01/23 @ 15:07 by Margie Munson) Other Family history of Alzheimer's disease Family history of diabetes mellitus Family history of lung cancer Family history of myocardial infarction Family history of renal failure Family history of skin cancer Social History (Updated 06/14/24 @ 10:46 by Esther Harris) Within the past year, how often did you have a drink containing alcohol: 2-3 times a week Within the past year, how often did you have six or more drinks on one occasion: never Smoking status: Former smoker Non-prescribed substance use: denies use 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; 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 Highest level of school completed/degree received: high school graduate Little interest or pleasure in doing things: not at all Feeling down, depressed, or hopeless: not at all Exam Constitutional Vital Signs, click to edit/add: Last Vital Signs Temp 98.5 F 09/27/24 02:44 Pulse 123 H 09/26/24 23:42 Resp 20 09/26/24 23:42 BP 165/93 H 09/26/24 23:42 Pulse Ox 94 L 09/26/24 23:42 O2 Del Method Room Air 09/26/24 23:42 Common normals: no apparent distress, average body habitus, oriented x3, no limitations, healthy appearing, alert and well nourished [facility] Common normals: normocephalic and head/scalp atraumatic Other: sinus nontender Eye Common normals: PERRL, EOMs intact bilaterally and conjunctivae normal Respiratory Common normals: normal respiratory effort, no retractions, no use of accessory muscles and clear to auscultation bilaterally Cardio Common normals: regular rate, regular rhythm, S1 normal heart sound and S2 normal heart sound GI Common normals: Normal to inspection, nondistended, normoactive bowel sounds present, soft to palpation and non-tender Extremity Common normals: normal to inspection and full ROM Neuro Common normals: oriented x3, CN's II-XII intact bilaterally, moves all extremities and no focal motor deficits Psych Appearance: grossly normal Course Vital Signs Vital signs: Vital Signs Temperature 101.0 F H 09/26/24 23:42 Pulse Rate 123 H 09/26/24 23:42 Respiratory Rate 20 09/26/24 23:42 Blood Pressure 165/93 H 09/26/24 23:42 Pulse Oximetry 94 L 09/26/24 23:42 Oxygen Delivery Method Room Air 09/26/24 23:42 Temperature 98.5 F 09/27/24 02:44 Pulse Rate 123 H 09/26/24 23:42 Respiratory Rate 09/26/24 23:42 Blood Pressure 165/93 H 09/26/24 23:42 Pulse Oximetry 94 L 09/26/24 23:42 Oxygen Delivery Method Room Air 09/26/24 23:42 MDM - Fever MDM Narrative Medical decision making narrative: patient presents with fever, clear sinus drainage and nonproductive cough. Mild body aches. no nausea or vomiting or pain. No sore throat. cxray clear. UA and basic labs reviewed. COVID19 and influenza neg.Patient treated with ibuprofen and defervesced . discharged home to follow up with his doctor for recheck. Working diagnosis of viral syndrome Lab Data Labs: Lab Results 09/27/24 09/27/24 Range/Units 00:55 01:40 WBC 6.1 (4.0-11.0) 10^3/uL RBC 3.07 L (4.70-6.10) 10^6/uL Hgb 10.7 L (14.0-18.0) g/dL Hct 30.8 L (42.0-54.0) % MCV 100.3 H (80.0-94.0) fL MCH 34.9 H (25.9-34.0) pg MCHC 34.7 (29.9-35.2) g/dL RDW 12.7 (11.0-15.0) % Plt Count 132 L (150-450) 10^3/uL MPV 9.5 (9.5-13.5) fL Seg Neuts % (Manual) 84.0 H (43.0-75.0) Lymphocytes % (Manual) 0.0 L (20.5-60.0) % Monocytes % (Manual) 16.0 H (1.7-12.0) % Eosinophils % (Manual) 0.0 L (0.9-7.0) % Basophils % (Manual) 0.0 L (0.2-2.0) % Neutrophils # (Manual) 5.12 (1.4-6.5) 10^3/uL Lymphocytes # (Manual) 0.00 L (1.20-3.80) 10^3/uL Monocytes # (Manual) 0.97 H (0.30-0.80) 10^3/uL Eosinophils # (Manual) 0.00 (0.00-0.70) 10^3/uL Basophils # (Manual) 0.00 (0.00-0.10) 10^3/uL Sodium 143 (136-145) mmol/L Potassium 4.0 (3.5-5.1) mmol/L Chloride 105 (98-107) mmol/L Carbon Dioxide 23.1 (21.0-32.0) mmol/L Anion Gap 18.9 BUN 17.0 (7.0-18.0) mg/dL Creatinine 1.46 H (0.70-1.30) mg/dL Est GFR ( Amer) 58 L (>=60 mL/min/1.73m^2) Est GFR (Non-Af Amer) 48 L (>=60 mL/min/1.73m^2) BUN/Creatinine Ratio 11.6 Glucose 115 H (74-106) mg/dL Calcium 8.5 (8.5-10.1) mg/dL Urine Color Yellow (YELLOW) Urine Clarity Clear (CLEAR) Urine pH 6.0 (5.0-9.0) Ur Specific [place] 1.020 (1.005-1.025) Urine Protein Negative (NEG/TRACE) mg/dL Urine Glucose (UA) Negative (NEGATIVE) mg/dL Urine Ketones Negative (NEGATIVE) mg/dL Urine Occult Blood Negative (NEGATIVE) Urine Nitrite Negative (NEGATIVE) Urine Bilirubin Negative (NEGATIVE) Urine Urobilinogen 0.2 (0.2-1.0) EU/dL Ur Leukocyte Esterase Negative (NEGATIVE) Influenza Type A Ag Negative Influenza Type B Ag Negative SARS-CoV-2 Ag (CV2AG) Negative (NEGATIVE) Discharge Plan Discharge Chief Complaint: Fever Clinical Impression: Viral infection Patient Disposition: Home, Self-Care Prescriptions / Home Meds: No Action krill oil 500 mg capsule 500 mg PO DAILY acyclovir 400 mg tablet 400 mg PO BID levothyroxine 125 mcg capsule 125 mcg PO DAILY multivitamin [Daily Multi-Vitamin] Tablet 1 tab PO QAM Print Language: [place] Instructions: Viral Syndrome (ED) Additional Instructions: follow up with your doctor for recheck within next couple of days Referrals: Physician,Non-Staff, MD [Primary Care Provider] - 1 week
--- NOTE | 2024-09-27 00:16 | XR_ITS ---
The [address] [address] Patient Name: KATIA SHAIKH MRN: [id number] date: 1955 Sex: M Assigned Patient Location: ER Current Patient Location: Accession/Order Number: [id number] Exam Date: 09/27/2024 00:22 Report Date: 09/27/2024 02:24 At the request of: JENN PENNY Procedure: XR chest 1V SINGLE VIEW CHEST: 09/27/2024 12:22 AM EST CLINICAL HISTORY:cough COMPARISONS: Portable chest 05/28/2023. TECHNIQUE: Single frontal view of the chest, utilizing portable technique. Portable radiography should be considered a technically compromised study. Strongly consider dedicated PA and lateral chest radiographs, as clinically indicated. FINDINGS: LINES AND TUBES: Stable right upper chest triangular in shape PowerPort with subclavian line, tip directed over proximal SVC. CARDIAC SILHOUETTE: Within normal limits. MEDIASTINAL AND HILAR CONTOUR: Within normal limits. PULMONARY PARENCHYMA AND PLEURA: Imaged lung davila are clear. No consolidation, edema, effusion, or pneumothorax. There is some attenuation of upper lung lung markings and vessels suggesting there may be a component of COPD. Correlate with smoking history. OSSEOUS STRUCTURES:Nothing significant. OTHER COMMENTS:None. XR/XR chest 1V IMPRESSION: Stable chest, with no acute radiographic findings. This report was generated with voice recognition software. Effort has been made to ensure accuracy of this report, however, occasional wording errors may persist. Please contact our office with any questions. Electronically authenticated by: JOSE LUIS COLON Date: 09/27/2024 02:24
[2024-09-27] MEDS: IBUPROFEN 400 MG TABLET 800 MG PO (00:48)
[2024-09-27 01:05] LABS: Hematocrit 30.8 % (42.0-54.0); Hemoglobin 10.7 g/dL (14.0-18.0); Mean Corpuscular HGB Conc 34.7 g/dL (29.9-35.2); Mean Corpuscular Hemoglobin 34.9 pg (25.9-34.0); Mean Corpuscular Volume 100.3 fL (80.0-94.0); Mean Platelet Volume 9.5 fL (9.5-13.5); Platelet Count 132 10^3/uL (150-450); Red Blood Count 3.07 10^6/uL (4.70-6.10); Red Cell Distribution Width 12.7 % (11.0-15.0); White Blood Count 6.1 10^3/uL (4.0-11.0)
[2024-09-27 01:19] LABS: Influenza Virus A Antigen Negative; Influenza Virus B Antigen Negative; Internal Control Within Normal Limits; SARS-CoV-2 Ag NEGATIVE (NEGATIVE)
[2024-09-27 01:20] LABS: Internal Control Within Normal Limits
[2024-09-27 01:21] LABS: Anion Gap 18.9; BUN Creatinine Ratio 11.6; Calcium 8.5 mg/dL (8.5-10.1); Carbon Dioxide 23.1 mmol/L (21.0-32.0); Chloride 105 mmol/L (98-107); Estimated GFR (African America 58 (>=60 mL/min/1.73m^2); Estimated GFR (Non-African Ame 48 (>=60 mL/min/1.73m^2); Glucose 115 mg/dL (74-106); Sodium 143 mmol/L (136-145)
[2024-09-27 01:43] LABS: Monocytes Absolute Manual 0.97 10^3/uL (0.30-0.80); Segmented Neut Absolute Manual 5.12 10^3/uL (1.4-6.5)
[2024-09-27 01:48] LABS: Bilirubin Urine NEGATIVE (NEGATIVE); Blood Urine NEGATIVE (NEGATIVE); Clarity Urine CLEAR (CLEAR); Color Urine YELLOW (YELLOW); Glucose Urine UA NEGATIVE (NEGATIVE); Ketones Urine NEGATIVE (NEGATIVE); Leukocyte Esterase Urine NEGATIVE (NEGATIVE); Nitrite Urine NEGATIVE (NEGATIVE); Protein Urine NEGATIVE (NEG/TRACE); Urobilinogen Urine 0.2 EU/dL (0.2-1.0)
[2024-09-27 01:50] LABS: Urine Microscopic Indicated NO
[2024-09-27 02:44] VITALS: TEMP 36.9
[2024-09-27 02:51] VITALS: BP 98/65; PULSE 94; TEMP 36.9; O2SAT 95
== END 2024-09-27 02:51 | disposition home or self-care (01) ==
PROVIDERS: Emergency Provider Internal Medicine
DX: B34.9 Viral infection, unspecified (principal); R50.9 Fever, unspecified; Z85.79 Personal history of other malignant neoplasms of lymphoid, hematopoietic and related tissues; Z86.16 Personal history of COVID-19; Z87.891 Personal history of nicotine dependence
CPT/HCPCS: 36415; 71045; 80048; 81003; 85007; 85027; 87804; 87811; 99284

== ENCOUNTER 2024-10-01 11:16 | Emergency (ER) | payer MEDICARE, SELFPAY ==
--- OUTSIDE RECORDS SUMMARY | 2024-10-01 11:28 | XMS_ITS | CCD ---
Author Organization [facility] Care Team Providers Care Project Manager Retail Name Role Phone Unavailable Primary Care Provider EMELIA Everett Referring Unavailable Unavailable Primary Care Provider UnavailEMELIA Velazquez Primary Care Physician [phone] Unavailable Primary Care Provider Unavailgaurang Feliz MANAGER ACTUARIAL.OUTPATIENT INTERVIEWING CLERK, Cleo Unavailable Michael Boykin MD Unavailable Ivania Jackman RN Unavailable [phone] Augustina WILSON Ivania Unavailable MD Chiquita Rivera Attending Provider Dorcas Bolanos MD Unavailable Niesha Galdamez MD Unavailable Michael Boykin MD Unavailable Emelia Gonzalez MD Primary Care Provider [phone] SELF, SELF Referring Unavailable DORCAS BOLANOS Attending Unavailable Krystyna Miller Unavailable Martina Marshall RN Unavailable Niesha Galdamez MD Unavailable Kadeem Changtlin Unavailable Martina Marshall RN Unavailable [phone] MD Chiquita Rivera Attending Provider Giana Chang Unavailable Kadeem Changtlin Unavailable Chiquita [...] Referring Unavailable BOYKIN, MICHAEL R Referring Unavailable BOYKIN MICHAEL R Attending Unavailable WINTER, NIESHA Referring Unavailable BOYKIN, MICHAEL R Attending Unavailable OBYKIN, MICHAEL R Referring Unavailable WINTER, NIESHA Referring [...] Referring Unavailable BOYKIN, MICHAEL R Referring Unavailable FELICITAS BOYKINIAN R Attending [...] Allopurinol (4 sources) Allopurinol Drug Allergy 07-08-20 [facility] (20 sources) Allopurinol; Translations: [allopurinol] Drug Allergy 07-08-20 [facility] (20 sources) Glucocorticoid preparation; Translations: [CORTICOSTEROIDS (GLUCOCORTICOIDS)] Propensity to adverse reactions to drug 03-30-20 Contraindicati on-Medical Surgical [facility] (1 source) No Known Medication Allergies; Translations: [No Known Medication Allergies] Propensity to adverse reactions (disorder) [facility] Repository Medications Current Medications Medication Drug Class(es) [...] 02-24-2024 Episodic Other aftercare (1 source) 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; Translations: [Encounter for [...] Reference Range Facility CNPTOUTREACHon 09-08-2024 CNPTOUTREACH Normal [facility] CNPNon 08-30-2024 CNPN Normal [facility] CNOVSPon 07-19-2024 CNOVSP Normal [facility] General Surgery Office/Clini c Noteon 07-14-2024 [...] inactivated - Not Given Patient Refuses Normal [facility] Comment on above: Result Comment: Elec tronically Signed By: MIGUEL LOFTON, Chiquita Mas\Date and Time Signed: 07/14/24 14:59 EDT Reminderson 07-14-2024 Reminders Reminders From: Ada Belle LPN To: N - Clinical; Sent: 07/14/2024 14:58:46 EDT Show up: 05/23/2027 07:00:00 EDT Subject: colonoscopy recall Due Date/Time: 06/23/2027 07:00:00 EDT Reminder/Recall Patient due for surveillance colonoscopy 06/23/2027 due to history of colon polyps. Normal [facility] CBC W Auto Differential pane l (Bld)on 07-07-2024 Basophils (Bld) [#/Vol] [facility] Basophils/100 WBC (Bld) 0.8 % [facility] Differential cell count method Nom (Bld) Auto [facility] Eosinophils (Bld) [#/Vol] 0.04 10*3/uL [facility] Eosinophils/100 WBC (Bld) 1.6 % [facility] Erythrocyte distribution width (RBC) [Ratio] 14.8 % 11.5 - 15.0 % [facility] Hematocrit (Bld) [Volume fraction] 36.2 % Low 39.0 - 51.0 % [facility] Hemoglobin (Bld) [Mass/Vol] 13.2 g/dL 13.0 - 17.0 g/dL [facility] Immature granulocytes (Bld) [#/Vol] [facility] Immature granulocytes/100 WBC (Bld) 0.8 % [facility] Interpretation and review of laboratory results Abnormal [facility] Lymphocytes (Bld) [#/Vol] 0.28 10*3/uL Low [facility] Lymphocytes/100 WBC (Bld) 10.9 % [facility] MCH (RBC) [Entitic mass] 36.9 pg High 26.0 - 34.0 pg [facility] MCHC (RBC) [Mass/Vol] 36.5 g/dL High 30.5 - 36.0 g/dL [facility] MCV (RBC) [Entitic vol] 101.1 fL High 80.0 - 100.0 fL [facility] Monocytes (Bld) [#/Vol] 0.57 10*3/uL NINF [facility] Monocytes/100 WBC (Bld) 22.3 % [facility] Neutrophils (Bld) [#/Vol] 1.63 10*3/uL [facility] Neutrophils/100 WBC (Bld) 63.6 % [facility] Nucleated RBC (Bld) [#/Vol] NINF [facility] Nucleated RBC/100 WBC (Bld) [Ratio] 0.0 % /100 WBC [facility] Platelet mean volume (Bld) [Entitic vol] 9.7 fL 9.0 - 12.7 fL [facility] Platelets (Bld) [#/Vol] 128 10*3/uL Low [facility] RBC (Bld) [#/Vol] 3.58 10*6/uL Low 4.20 - 6.00 m/uL [facility] WBC (Bld) [#/Vol] 2.56 10*3/uL Low [facility] Basophils (Bld) [#/Vol] 10*3/uL Normal <0.11 [facility] Comment on above: Order Comment: Speci men Type: BLOOD SPECIMENOrdering Facility: [facility] Address: [address] [place] [address] Performed By: #### 5 7021-8 ####[facility] LABCLIA [id number] [place] [address] Basophils/100 WBC (Bld) 0.8 % Normal [facility] Comment on above: Order Comment: Speci men Type: BLOOD SPECIMENOrdering Facility: [facility] Address: [address] [place] [address] Performed By: #### 5 7021-8 ####[facility] LABCLIA [id number] [place] [address] Differential cell count method Nom (Bld) Auto Normal [facility] Comment on above: Order Comment: Speci men Type: BLOOD SPECIMENOrdering Facility: [facility] Address: [address] [place] [address] Performed By: #### 5 7021-8 ####[facility] LABCLIA [id number] [place] [address] Eosinophils (Bld) [#/Vol] 0.04 10*3/uL Normal <0.46 [facility] Comment on above: Order Comment: Speci men Type: BLOOD SPECIMENOrdering Facility: [facility] Address: [address] [place] [address] Performed By: #### 5 7021-8 ####[facility] LABCLIA [id number] [place] [address] Eosinophils/100 WBC (Bld) 1.6 % Normal [facility] Comment on above: Order Comment: Speci men Type: BLOOD SPECIMENOrdering Facility: [facility] Address: [address] [place] [address] Performed By: #### 5 7021-8 ####[facility] LABCLIA [id number] [place] [address] Erythrocyte distribution width (RBC) [Ratio] 14.8 % Normal 11.5-15.0 [facility] Comment on above: Order Comment: Speci men Type: BLOOD SPECIMENOrdering Facility: [facility] Address: [address] [place] [address] Performed By: #### 5 7021-8 ####[facility] LABCLIA [id number] [place] [address] Hematocrit (Bld) [Volume fraction] 36.2 % Low 39.0-51.0 [facility] Comment on above: Order Comment: Speci men Type: BLOOD SPECIMENOrdering Facility: [facility] Address: [address] [place] [address] Performed By: #### 5 7021-8 ####[facility] LABCLIA [id number] [place] [address] Hemoglobin (Bld) [Mass/Vol] 13.2 g/dL Normal 13.0-17.0 [facility] Comment on above: Order Comment: Speci men Type: BLOOD SPECIMENOrdering Facility: [facility] Address: [address] [place] [address] Performed By: #### 5 7021-8 ####[facility] LABCLIA [id number] [place] [address] Immature granulocytes (Bld) [#/Vol] 10*3/uL Normal <0.10 [facility] Comment on above: Order Comment: Speci men Type: BLOOD SPECIMENOrdering Facility: [facility] Address: [address] [place] [address] Performed By: #### 5 7021-8 ####[facility] LABCLIA [id number] [place] [address] Immature granulocytes/100 WBC (Bld) 0.8 % Normal [facility] Comment on above: Order Comment: Speci men Type: BLOOD SPECIMENOrdering Facility: [facility] Address: [address] [place] [address] Performed By: #### 5 7021-8 ####[facility] LABCLIA [id number] [place] [address] Lymphocytes (Bld) [#/Vol] 0.28 10*3/uL Low 1.00-4.00 [facility] Comment on above: Order Comment: Speci men Type: BLOOD SPECIMENOrdering Facility: [facility] Address: [address] [place] [address] Performed By: #### 5 7021-8 ####[facility] LABCLIA [id number] [place] [address] Lymphocytes/100 WBC (Bld) 10.9 % Normal [facility] Comment on above: Order Comment: Speci men Type: BLOOD SPECIMENOrdering Facility: [facility] Address: [address] [place] [address] Performed By: #### 5 7021-8 ####[facility] LABCLIA [id number] [place] [address] MCH (RBC) [Entitic mass] 36.9 pg High 26.0-34.0 [facility] Comment on above: Order Comment: Speci men Type: BLOOD SPECIMENOrdering Facility: [facility] Address: [address] [place] [address] Performed By: #### 5 7021-8 ####[facility] LABCLIA [id number] [place] [address] MCHC (RBC) [Mass/Vol] 36.5 g/dL High 30.5-36.0 [facility] Comment on above: Order Comment: Speci men Type: BLOOD SPECIMENOrdering Facility: [facility] Address: [address] [place] [address] Performed By: #### 5 7021-8 ####[facility] LABCLIA [id number] [place] [address] MCV (RBC) [Entitic vol] 101.1 fL High 80.0-100.0 [facility] Comment on above: Order Comment: Speci men Type: BLOOD SPECIMENOrdering Facility: [facility] Address: [address] [place] [address] Performed By: #### 5 7021-8 ####[facility] LABCLIA [id number] [place] [address] Monocytes (Bld) [#/Vol] 0.57 10*3/uL Normal <0.87 [facility] Comment on above: Order Comment: Speci men Type: BLOOD SPECIMENOrdering Facility: [facility] Address: [address] [place] [address] Performed By: #### 5 7021-8 ####[facility] LABIA [id number] [place] [address] Monocytes/100 WBC (Bld) 22.3 % Normal [facility] Comment on above: Order Comment: Speci men Type: BLOOD SPECIMENOrdering Facility: [facility] Address: [address] [place] [address] Performed By: #### 5 7021-8 ####[facility] LABCLIA [id number] [place] [address] Neutrophils (Bld) [#/Vol] 1.63 10*3/uL Normal 1.45-7.50 [facility] Comment on above: Order Comment: Speci men Type: BLOOD SPECIMENOrdering Facility: [facility] Address: [address] [place] [address] Performed By: #### 5 7021-8 ####[facility] LABCLIA [id number] [place] [address] Neutrophils/100 WBC (Bld) 63.6 % Normal [facility] Comment on above: Order Comment: Speci men Type: BLOOD SPECIMENOrdering Facility: [facility] Address: [address] [place] [address] Performed By: #### 5 7021-8 ####[facility] LABCLIA [id number] [place] [address] Nucleated RBC (Bld) [#/Vol] 10*3/uL Normal <0.01 [facility] Comment on above: Order Comment: Speci men Type: BLOOD SPECIMENOrdering Facility: [facility] Address: [address] [place] [address] Performed By: #### 5 7021-8 ####[facility] LABCLIA [id number] [place] [address] Nucleated RBC/100 WBC (Bld) [Ratio] 0.0 /100 WBC Normal [facility] Comment on above: Order Comment: Speci men Type: BLOOD SPECIMENOrdering Facility: [facility] Address: [address] [place] [address] Performed By: #### 5 7021-8 ####[facility] LABCLIA [id number] [place] [address] Platelet mean volume (Bld) [Entitic vol] 9.7 fL Normal 9.0-12.7 [facility] Comment on above: Order Comment: Speci men Type: BLOOD SPECIMENOrdering Facility: [facility] Address: [address] [place] [address] Performed By: #### 5 7021-8 ####[facility] LABCLIA [id number] [place] [address] Platelets (Bld) [#/Vol] 128 10*3/uL Low 150-400 [facility] Comment on above: Order Comment: Speci men Type: BLOOD SPECIMENOrdering Facility: [facility] Address: [address] [place] [address] Performed By: #### 5 7021-8 ####[facility] LABCLIA [id number] [place] [address] RBC (Bld) [#/Vol] 3.58 10*6/uL Low 4.20-6.00 [facility] Comment on above: Order Comment: Speci men Type: BLOOD SPECIMENOrdering Facility: [facility] Address: [address] [place] [address] Performed By: #### 5 7021-8 ####[facility] LABCLIA [id number] [place] [address] WBC (Bld) [#/Vol] 2.56 10*3/uL Low 3.70-11.00 [facility] Comment on above: Order Comment: Speci men Type: BLOOD SPECIMENOrdering Facility: [facility] Address: [address] [place] [address] Performed By: #### 5 7021-8 ####[facility] LABCLIA [id number] [place] [address] Comprehensive metabolic 2000 panelOrdered By: Benson Alcaraz on 07-07-2024 Albumin [Mass/Vol] 4.6 g/dL 3.9 - 4.9 g/dL [facility] ALP [Catalytic activity/Vol] 102 U/L 38 - 113 U/L [facility] ALT [Catalytic activity/Vol] 32 U/L 10 - 54 U/L [facility] Anion gap [Moles/Vol] 13 mmol/L 8 - 15 mmol/L [facility] AST [Catalytic activity/Vol] [facility] Comment on above: Unable to assay. Garo calvillo significantly hemolyzed. Bilirubin [Mass/Vol] 0.5 mg/dL 0.2 - 1 .3 mg/dL [facility] Calcium [Mass/Vol] 9.3 mg/dL 8.5 - 10. 2 mg/dL [facility] Chloride [Moles/Vol] 106 mmol/L 98 - 10 7 mmol/L [facility] CO2 [Moles/Vol] 20 mmol/L Low 22 - 30 mmol/L [facility] Creatinine [Mass/Vol] 0.91 mg/dL 0.73 - 1.22 mg/dL [facility] GFR/1.73 sq M.predicted among non-blacks MDRD (S/P/Bld) [Vol rate/Area] 92 mL/min/{1.73_m2} - PINF [facility] Comment on above: Estimated Glomerular Filtration Rate [...] [Mass/Vol] 98 mg/dL 74 - 99 mg/dL [facility] Comment on above: The [place] Di[employer] Association (ADA) provides guidance for [...] Standards of Medical Care in Diabetes 2016, [place] [employer]. Diabetes Care. 2016.39(Suppl 1). Interpretation and review of laboratory results Abnormal [facility] Potassium [Moles/Vol] 4.5 mmol/L 3.7 - 5.1 mmol/L [facility] Protein [Mass/Vol] 6.1 g/dL Low 6.3 - 8.0 g/dL [facility] Sodium [Moles/Vol] 139 mmol/L 136 - 144 mmol/L [facility] Urea nitrogen [Mass/Vol] 19 mg/dL 9 - 24 mg/dL [facility] Comprehensive metabolic 2000 panelon 07-07-2024 Albumin [Mass/Vol] 4.6 g/dL Normal 3.9-4.9 [facility] Comment on above: Order Comment: Speci men Type: BLOOD SPECIMENOrdering Facility: [facility] Address: [address] [place] [address] Performed By: #### 1 9123-9, 88076-6 ####[facility] LABCLIA [id number] [place] [address] ALP [Catalytic activity/Vol] 102 U/L Normal 38-113 [facility] Comment on above: Order Comment: Speci men Type: BLOOD SPECIMENOrdering Facility: [facility] Address: [address] [place] [address] Performed By: #### 1 9123-9, 05030-5 ####[facility] LABCLIA [id number] [place] [address] ALT [Catalytic activity/Vol] 32 U/L Normal 10-54 [facility] Comment on above: Order Comment: Speci men Type: BLOOD SPECIMENOrdering Facility: [facility] Address: [address] [id number] Performed By: #### 1 9123-9, 59288-0 ####[facility] LABCLIA [id number] [place] [address] Anion gap [Moles/Vol] 13 mmol/L Normal 8-15 [facility] Comment on above: Order Comment: Speci men Type: BLOOD SPECIMENOrdering Facility: [facility] Address: [address] [place] [address] Performed By: #### 1 9123-9, ####[facility] LABCLIA [id number] [place] [address] AST [Catalytic activity/Vol] Normal [facility] Comment on above: Order Comment: Speci men Type: BLOOD SPECIMENOrdering Facility: [facility] Address: [address] [place] [address] Result Comment: Unab le to assay. Specimen significantly hemolyzed. Performed By: #### 1 239, ####[facility] LABCLIA [id number] [place] [address] Bilirubin [Mass/Vol] 0.5 mg/dL Normal 0.2-1.3 [facility] Comment on above: Order Comment: Speci men Type: BLOOD SPECIMENOrdering Facility: [facility] Address: [address] [place] [address] Performed By: #### 1 239, ####[facility] LABCLIA [id number] [place] [address] Calcium [Mass/Vol] 9.3 mg/dL Normal 8.5-10.2 [facility] Comment on above: Order Comment: Speci men Type: BLOOD SPECIMENOrdering Facility: [facility] Address: [address] [place] [address] Performed By: #### 1 239, ####[facility] LABCLIA [id number] [place] [address] Chloride [Moles/Vol] 106 mmol/L Normal 98-107 [facility] Comment on above: Order Comment: Speci men Type: BLOOD SPECIMENOrdering Facility: [facility] Address: [address] [place] [address] Performed By: #### 1 91239, ####[facility] LABCLIA [id number] [place] [address] CO2 [Moles/Vol] 20 mmol/L Low 22-30 [facility] Comment on above: Order Comment: Speci men Type: BLOOD SPECIMENOrdering Facility: [facility] Address: [address] [place], [place] [address] Performed By: #### 1 9123-9, ####[facility] LABCLIA [id number] [place] [address] Creatinine [Mass/Vol] 0.91 mg/dL Normal 0.73-1.22 [facility] Comment on above: Order Comment: Speci men Type: BLOOD SPECIMENOrdering Facility: [facility] Address: [address] [place] [address] Performed By: #### 1 9123-9, ####[facility] LABCLIA [id number] [place] [address] Creatinine and Glomerular filtration rate.predicted panel (S/P/Bld) 92 mL/min/1.73m??? Normal >=60 [facility] Comment on above: Order Comment: Speci men Type: BLOOD SPECIMENOrdering Facility: [facility] Address: [address] [place] [address] Result Comment: Carol mated Glomerular Filtration Rate [...] actual GFR. Performed By: #### 1 9123-9, ####[facility] LABCLIA [id number] [place] [address] Glucose [Mass/Vol] 98 mg/dL Normal 74-99 [facility] Comment on above: Order Comment: Speci men Type: BLOOD SPECIMENOrdering Facility: [facility] Address: [address] [place], [place] [address] Result Comment: The [place] Diabetes Association (ADA) provides guidance for cutoff [...] Standards of Medical Care in Diabetes 2016, [place] [employer]. Diabetes Care. 2016.39(Suppl 1). Performed By: #### 1 9123-9, ####[facility] LABIA [id number] [place] [address] Potassium [Moles/Vol] 4.5 mmol/L Normal 3.7-5.1 [facility] Comment on above: Order Comment: Speci men Type: BLOOD SPECIMENOrdering Facility: [facility] Address: [address] [place] [address] Performed By: #### 1 9123-9, ####[facility] LABIA [id number] [place] [address] Protein [Mass/Vol] 6.1 g/dL Low 6.3-8.0 [facility] Comment on above: Order Comment: Speci men Type: BLOOD SPECIMENOrdering Facility: [facility] Address: [address] [place] [address] Performed By: #### 1 239, 40235-5 ####[facility] LABIA [id number] [place] [address] Sodium [Moles/Vol] 139 mmol/L Normal 136-144 [facility] Comment on above: Order Comment: Speci men Type: BLOOD SPECIMENOrdering Facility: [facility] Address: [address] [place] [address] Performed By: #### 1 239, 96197-2 ####[facility] LABCLIA [id number] [place] [address] Urea nitrogen [Mass/Vol] 19 mg/dL Normal 9-24 [facility] Comment on above: Order Comment: Speci men Type: BLOOD SPECIMENOrdering Facility: [facility] Address: [address] [place] [address] Performed By: #### 1 9123-9, ####[facility] LABCLIA [id number] [place] [address] GLUCOSE, BLOOD (POC)on 07-07 Glucose [Mass/Vol] 92 mg/dL 74 - 99 mg/dL [facility] Comment on above: Location:[facility], [address] [place] [address] , [place], [place], [address] The Accu-Chek Inform II glucose meter has [...] blood gas instrument) in the above situations. [facility] MAGNESIUMon 07-07-2024 Magnesium [Mass/Vol] 2.1 mg/dL 1.7 - 2 .3 mg/dL [facility] Magnesium SerPl-mCncon 07-07 Magnesium [Mass/Vol] 2.1 mg/dL Normal 1.7-2.[address] [facility] Comment on above: Order Comment: Speci men Type: BLOOD SPECIMENOrdering Facility: [facility] Address: [address] [place] [address] Performed By: #### 1 9123-9, ####[facility] LABCLIA [id number] [place] [address] Magnesium [Mass/Vol]on 07-07 Interpretation and review of laboratory results Normal [facility] NM PET/CT SKULL-THIGH SUBQon 07-07-2024 NM PET/CT SKULL-THIGH SUBQ Normal [facility] PET+CT Guidance for localiza tion of [...] any questions regarding this interpretation, please call [phone]. If you are unable to reach us at the number above, please feel free to contact [facility]iology at [phone]. DIVISION OF RADIOLOGY * * *Final Report* [...] * Uptake Time: 51 minutes * Radiopharmaceutical: E45-Fxwmfwdwwdkdjrvohz (FDG) COMPARISON: PET/CT 05/07/2024 RESULT: REFERENCES: FDG [...] compared to left. DIVISION OF RADIOLOGY Provider, [facility] - 07/07/2024 * * *Final Report* * [...] * Uptake Time: 51 minutes * Radiopharmaceutical: A15-Paxtqlabeokmofwzdw (FDG) COMPARISON: PET/CT 05/07/2024 RESULT: REFERENCES: FDG [...] any questions regarding this interpretation, please call [phone]. If you are unable to reach us at the number above, please feel free to contact [facility] at [phone]. [facility] Radiology Study observation (narrative) [facility] PET+CT Guidance for localiza tion of tumor of Skull base to mid-thigh-- W 18F-FDG IVOrdered By: Ccf Provider on 07-07-2024 [facility] Cheng 06-23-2024 L Specimen: [id number] R eceived: 06/25/24 Status: ABIOLA Barros Num: [id number] Spec Type: Surgical Subm Dr: Chiquita Rivera MD FACS Tissues: A Colon Biopsy (SIGMOID COLON POLYP) B Colon Biopsy (DESCENDING COLON POLYP) C Colon Biopsy (SIGMOID COLON POLYP) D Colon Biopsy (RECTAL POLYP) Procedures: HE/8, Gross/Micro L4/4 Age/ Patient Sex Location Account Attending Physician Katia Shaikh 68/M [facility] [id number] Chiquita Rivera MD FACS SPEC NUM: [id number] RECD: 06/25/24 STATUS: ABIOLA BARROS NUM: [id number] FRANDY: 06/23/[address]: Chiquita Rivera MD FACS ENTERED: 06/25/24 [facility] DR: Oleksandr Anguiano SPEC TYPE: Surgical DEPT: ALYSSIA TEJADA ENTERED BY: [id number] RECV BY: [id number] ORDERED: HE/8, Gross/Micro L4/4 ORDERED: HE/8, Gross/Micro L4/4 Pathological Diagnosis A, sigmoid polyp biopsy: -Tubular adenoma B, descending colon polyp polypectomy biopsy: -Tubular adenoma in all fragments C, sigmoid polyp polypectomy: -Tubulovillous adenoma -No evidence of malignancy or high-grade dysplasia D, rectal polyp biopsy: -Tubular adenoma Clinical Information Not given -------- Specimen: [id number] Received: 06/25/24 Status: JENNAFaye Barros Num: [id number] Spec Type: Surgical Subm Dr: Chiquita Rivera MD FACS Tissues: A Colon Biopsy (SIGMOID COLON POLYP) B Colon Biopsy (DESCENDING COLON POLYP) C Colon Biopsy (SIGMOID COLON POLYP) D Colon Biopsy (RECTAL POLYP) Procedures: JOSE R/[place], Gross/Micro L4/4 -------- Patient: Katia Shaikh [id number] (Continued) -------- Specimen: [id number] Received: 06/25/24 (Continued) Signed (signature on file) Caro Ocasio, MD 06/28/24 1242 -------- Specimen: [id number] Received: 06/25/24 Status: ABIOLA Barros Num: [id number] Spec Type: Surgical Subm Dr: Chiquita Rivera MD FACS Tissues: A Colon Biopsy (SIGMOID COLON POLYP) B Colon Biopsy (DESCENDING COLON POLYP) C Colon Biopsy (SIGMOID COLON POLYP) D Colon Biopsy (RECTAL POLYP) Procedures: [place], Gross/Micro L4/4 -------- Patient: Katia Shaikh Mk [id number] (Continued) -------- Specimen: [id number] Received: 06/25/24 (Continued) Gross Description Part A [...] performed supporting the above interpretation CPT Codes 32009y2 -------- -------- Specimen: [id number] Received: 06/25/24 Status: ABIOLA Tannerelizabeth Num: [id number] Spec Type: Surgical Subm Dr: Chiquita Rivera MD FACS Tissues: A Colon Biopsy (SIGMOID COLON POLYP) B Colon Biopsy (DESCENDING COLON POLYP) C Colon Biopsy (SIGMOID COLON POLYP) D Colon Biopsy (RECTAL POLYP) Procedures: HE/[place], Gross/Micro L4/4 -------- Patient: HawaKatia [id number] (Continued) -------- Signed (signature on file) Caro Ocasio MD 06/28/24 1242 Normal [facility] CBC W Auto Differential pane l (Bld)on 06-17-2024 Basophils (Bld) [#/Vol] [facility] Basophils/100 WBC (Bld) 0.7 % [facility] Differential cell count method Nom (Bld) Auto [facility] Eosinophils (Bld) [#/Vol] 0.05 10*3/uL [facility] Eosinophils/100 WBC (Bld) 1.8 % [facility] Erythrocyte distribution width (RBC) [Ratio] 18.7 % High 11.5 - 15.0 % [facility] Hematocrit (Bld) [Volume fraction] 33.8 % Low 39.0 - 51.0 % [facility] Hemoglobin (Bld) [Mass/Vol] 12.2 g/dL Low 13.0 - 17.0 g/dL [facility] Immature granulocytes (Bld) [#/Vol] [facility] Immature granulocytes/100 WBC (Bld) 0.4 % [facility] Interpretation and review of laboratory results Abnormal [facility] Lymphocytes (Bld) [#/Vol] 0.25 10*3/uL Low [facility] Lymphocytes/100 WBC (Bld) 9.2 % [facility] MCH (RBC) [Entitic mass] 36.0 pg High 26.0 - 34.0 pg [facility] MCHC (RBC) [Mass/Vol] 36.1 g/dL High 30.5 - 36.0 g/dL [facility] MCV (RBC) [Entitic vol] 99.7 fL 80.0 - 100.0 fL [facility] Monocytes (Bld) [#/Vol] 0.59 10*3/uL [facility] Monocytes/100 WBC (Bld) 21.7 % [facility] Neutrophils (Bld) [#/Vol] 1.80 10*3/uL [facility] Neutrophils/100 WBC (Bld) 66.2 % [facility] Nucleated RBC (Bld) [#/Vol] NINF [facility] Nucleated RBC/100 WBC (Bld) [Ratio] 0.0 % /100 WBC [facility] Platelet mean volume (Bld) [Entitic vol] 9.1 fL 9.0 - 12.7 fL [facility] Platelets (Bld) [#/Vol] 119 10*3/uL Low [facility] RBC (Bld) [#/Vol] 3.39 10*6/uL Low 4.20 - 6.00 m/uL [facility] WBC (Bld) [#/Vol] 2.72 10*3/uL Low [facility] Basophils (Bld) [#/Vol] 10*3/uL Normal <0.11 [facility] Comment on above: Order Comment: Speci men Type: BLOOD SPECIMENOrdering Facility: [facility] Address: [address] [place] [address] Performed By: #### 5 7021-8 ####[facility] LABCLIA [id number] [place] [address] Basophils/100 WBC (Bld) 0.7 % Normal [facility] Comment on above: Order Comment: Speci men Type: BLOOD SPECIMENOrdering Facility: [facility] Address: [address] [place] [address] Performed By: #### 5 7021-8 ####[facility] LABCLIA [id number] [place] [address] Differential cell count method Nom (Bld) Auto Normal [facility] Comment on above: Order Comment: Speci men Type: BLOOD SPECIMENOrdering Facility: [facility] Address: [address] [place] [address] Performed By: #### 5 7021-8 ####[facility] LABCLIA [id number] [place] [address] Eosinophils (Bld) [#/Vol] 0.05 10*3/uL Normal <0.46 [facility] Comment on above: Order Comment: Speci men Type: BLOOD SPECIMENOrdering Facility: [facility] Address: [address] [place] [address] Performed By: #### 5 7021-8 ####[facility] LABCLIA [id number] [place] [address] Eosinophils/100 WBC (Bld) 1.8 % Normal [facility] Comment on above: Order Comment: Speci men Type: BLOOD SPECIMENOrdering Facility: [facility] Address: [address] [place] [address] Performed By: #### 5 7021-8 ####[facility] LABCLIA [id number] [place] [address] Erythrocyte distribution width (RBC) [Ratio] 18.7 % High 11.5-15.0 [facility] Comment on above: Order Comment: Speci men Type: BLOOD SPECIMENOrdering Facility: [facility] Address: [address] [place] [address] Performed By: #### 5 7021-8 ####[facility] LABCLIA [id number] [place] [address] Hematocrit (Bld) [Volume fraction] 33.8 % Low 39.0-51.0 [facility] Comment on above: Order Comment: Speci men Type: BLOOD SPECIMENOrdering Facility: [facility] Address: [address] [place] [address] Performed By: #### 5 7021-8 ####[facility] LABCLIA [id number] [place] [address] Hemoglobin (Bld) [Mass/Vol] 12.2 g/dL Low 13.0-17.0 [facility] Comment on above: Order Comment: Speci men Type: BLOOD SPECIMENOrdering Facility: [facility] Address: [address] [place] [address] Performed By: #### 5 7021-8 ####[facility] LABCLIA [id number] [place] [address] Immature granulocytes (Bld) [#/Vol] 10*3/uL Normal <0.10 [facility] Comment on above: Order Comment: Speci men Type: BLOOD SPECIMENOrdering Facility: [facility] Address: [address] [place] [address] Performed By: #### 5 7021-8 ####[facility] LABCLIA [id number] [place] [address] Immature granulocytes/100 WBC (Bld) 0.4 % Normal [facility] Comment on above: Order Comment: Speci men Type: BLOOD SPECIMENOrdering Facility: [facility] Address: [address] [place] [address] Performed By: #### 5 7021-8 ####[facility] LABCLIA [id number] [place] [address] Lymphocytes (Bld) [#/Vol] 0.25 10*3/uL Low 1.00-4.00 [facility] Comment on above: Order Comment: Speci men Type: BLOOD SPECIMENOrdering Facility: [facility] Address: [address] [place] [address] Performed By: #### 5 7021-8 ####[facility] LABCLIA [id number] [place] [address] Lymphocytes/100 WBC (Bld) 9.2 % Normal [facility] Comment on above: Order Comment: Speci men Type: BLOOD SPECIMENOrdering Facility: [facility] Address: [address] [place] [address] Performed By: #### 5 7021-8 ####[facility] LABCLIA [id number] [place] [address] MCH (RBC) [Entitic mass] 36.0 pg High 26.0-34.0 [facility] Comment on above: Order Comment: Speci men Type: BLOOD SPECIMENOrdering Facility: [facility] Address: [address] [place] [address] Performed By: #### 5 7021-8 ####[facility] LABCLIA [id number] [place] [address] MCHC (RBC) [Mass/Vol] 36.1 g/dL High 30.5-36.0 [facility] Comment on above: Order Comment: Speci men Type: BLOOD SPECIMENOrdering Facility: [facility] Address: [address] [place] [address] Performed By: #### 5 7021-8 ####[facility] LABCLIA [id number] [place] [address] MCV (RBC) [Entitic vol] 99.7 fL Normal 80.0-100.0 [facility] Comment on above: Order Comment: Speci men Type: BLOOD SPECIMENOrdering Facility: [facility] Address: [address] [place] [address] Performed By: #### 5 7021-8 ####[facility] LABCLIA [id number] [place] [address] Monocytes (Bld) [#/Vol] 0.59 10*3/uL Normal <0.87 [facility] Comment on above: Order Comment: Speci men Type: BLOOD SPECIMENOrdering Facility: [facility] Address: [address] [place] [address] Performed By: #### 5 7021-8 ####[facility] LABCLIA [id number] [place] [address] Monocytes/100 WBC (Bld) 21.7 % Normal [facility] Comment on above: Order Comment: Speci men Type: BLOOD SPECIMENOrdering Facility: [facility] Address: [address] [place] [address] Performed By: #### 5 7021-8 ####[facility] LABCLIA [id number] [place] [address] Neutrophils (Bld) [#/Vol] 1.80 10*3/uL Normal 1.45-7.50 [facility] Comment on above: Order Comment: Speci men Type: BLOOD SPECIMENOrdering Facility: [facility] Address: [address] [place] [address] Performed By: #### 5 7021-8 ####[facility] LABCLIA [id number] [place] [address] Neutrophils/100 WBC (Bld) 66.2 % Normal [facility] Comment on above: Order Comment: Speci men Type: BLOOD SPECIMENOrdering Facility: [facility] Address: [address] [place] [address] Performed By: #### 5 7021-8 ####[facility] LABCLIA [id number] [place] [address] Nucleated RBC (Bld) [#/Vol] 10*3/uL Normal <0.01 [facility] Comment on above: Order Comment: Speci men Type: BLOOD SPECIMENOrdering Facility: [facility] Address: [address] [place] [address] Performed By: #### 5 7021-8 ####[facility] LABCLIA [id number] [place] [address] Nucleated RBC/100 WBC (Bld) [Ratio] 0.0 /100 WBC Normal [facility] Comment on above: Order Comment: Speci men Type: BLOOD SPECIMENOrdering Facility: [facility] Address: [address] [place] [address] Performed By: #### 5 7021-8 ####[facility] LABCLIA [id number] [place] [address] Platelet mean volume (Bld) [Entitic vol] 9.1 fL Normal 9.0-12.7 [facility] Comment on above: Order Comment: Speci men Type: BLOOD SPECIMENOrdering Facility: [facility] Address: [address] [place] [address] Performed By: #### 5 7021-8 ####[facility] LABCLIA [id number] [place] [address] Platelets (Bld) [#/Vol] 119 10*3/uL Low 150-400 [facility] Comment on above: Order Comment: Speci men Type: BLOOD SPECIMENOrdering Facility: [facility] Address: [address] [place] [address] Performed By: #### 5 7021-8 ####[facility] LABCLIA [id number] [place] [address] RBC (Bld) [#/Vol] 3.39 10*6/uL Low 4.20-6.00 [facility] Comment on above: Order Comment: Speci men Type: BLOOD SPECIMENOrdering Facility: [facility] Address: [address] [place] [address] Performed By: #### 5 7021-8 ####[facility] LABIA [id number] [place] [address] WBC (Bld) [#/Vol] 2.72 10*3/uL Low 3.70-11.00 [facility] Comment on above: Order Comment: Speci men Type: BLOOD SPECIMENOrdering Facility: [facility] Address: [address] [place] [address] Performed By: #### 5 7021-8 ####[facility] LABIA [id number] [place] [address] CNOVSPon 06-17-2024 CNOVSP Normal [facility] metabolic 2000 panelOrdered By: Aurora Moreland on 06-17-2024 Albumin [Mass/Vol] 4.5 g/dL 3.9 - 4.9 g/dL [facility] ALP [Catalytic activity/Vol] 106 U/L 38 - 113 U/L [facility] ALT [Catalytic activity/Vol] 29 U/L 10 - 54 U/L [facility] Anion gap [Moles/Vol] 9 mmol/L 8 - 15 mmol/L [facility] AST [Catalytic activity/Vol] 23 U/L 14 - 40 U/L [facility] Bilirubin [Mass/Vol] 0.5 mg/dL 0.2 - 1 .3 mg/dL [facility] Calcium [Mass/Vol] 9.5 mg/dL 8.5 - 10. 2 mg/dL [facility] Chloride [Moles/Vol] 109 mmol/L High 98 - 10 7 mmol/L [facility] CO2 [Moles/Vol] 24 mmol/L 22 - 30 mmol/L [facility] Creatinine [Mass/Vol] 1.19 mg/dL 0.73 - 1.22 mg/dL [facility] GFR/1.73 sq M.predicted among non-blacks MDRD (S/P/Bld) [Vol rate/Area] 67 mL/min/{1.73_m2} - PINF [facility] Comment on above: Estimated Glomerular Filtration Rate [...] [Mass/Vol] 98 mg/dL 74 - 99 mg/dL [facility] Comment on above: The [place] [employer] (ADA) provides guidance for [...] Standards of Medical Care in Diabetes 2016, [place] [employer]. Diabetes Care. 2016.39(Suppl 1). Interpretation and review of laboratory results Abnormal [facility] Potassium [Moles/Vol] 4.4 mmol/L 3.7 - 5.1 mmol/L [facility] Protein [Mass/Vol] 6.3 g/dL 6.3 - 8.0 g/dL [facility] Sodium [Moles/Vol] 142 mmol/L 136 - 144 mmol/L [facility] Urea nitrogen [Mass/Vol] 16 mg/dL 9 - 24 mg/dL [facility] Comprehensive metabolic 2000 panelon 06-17-2024 Albumin [Mass/Vol] 4.5 g/dL Normal 3.9-4.9 [facility] Comment on above: Order Comment: Speci men Type: BLOOD SPECIMENOrdering Facility: [facility] Address: [address] [place] [address] Performed By: #### 2 4323-8 ####[facility] LABCLIA [id number] [place] [address] ALP [Catalytic activity/Vol] 106 U/L Normal 38-113 [facility] Comment on above: Order Comment: Speci men Type: BLOOD SPECIMENOrdering Facility: [facility] Address: [address] [place] [address] Performed By: #### 2 4323-8 ####[facility] LABCLIA [id number] [place] [address] ALT [Catalytic activity/Vol] 29 U/L Normal 10-54 [facility] Comment on above: Order Comment: Speci men Type: BLOOD SPECIMENOrdering Facility: [facility] Address: [address] [place] [address] Performed By: #### 2 4323-8 ####[facility] LABCLIA [id number] [place] [address] Anion gap [Moles/Vol] 9 mmol/L Normal 8-15 [facility] Comment on above: Order Comment: Speci men Type: BLOOD SPECIMENOrdering Facility: [facility] Address: [address] [place] [address] Performed By: #### 2 4323-8 ####[facility] LABCLIA [id number] [place] [address] AST [Catalytic activity/Vol] 23 U/L Normal 14-40 [facility] Comment on above: Order Comment: Speci men Type: BLOOD SPECIMENOrdering Facility: [facility] Address: [address] [place] [address] Performed By: #### 2 4323-8 ####[facility] LABCLIA [id number] [place] [address] Bilirubin [Mass/Vol] 0.5 mg/dL Normal 0.2-1.3 [facility] Comment on above: Order Comment: Speci men Type: BLOOD SPECIMENOrdering Facility: [facility] Address: [address] [place] [address] Performed By: #### 2 4323-8 ####[facility] LABCLIA [id number] [place] [address] Calcium [Mass/Vol] 9.5 mg/dL Normal 8.5-10.2 [facility] Comment on above: Order Comment: Speci men Type: BLOOD SPECIMENOrdering Facility: [facility] Address: [address] [place] [address] Performed By: #### 2 4323-8 ####[facility] LABCLIA [id number] [place] [address] Chloride [Moles/Vol] 109 mmol/L High 98-107 [facility] Comment on above: Order Comment: Speci men Type: BLOOD SPECIMENOrdering Facility: [facility] Address: [address] [place] [address] Performed By: #### 2 4323-8 ####[facility] LABCLIA [id number] [place] [address] CO2 [Moles/Vol] 24 mmol/L Normal 22-30 [facility] Comment on above: Order Comment: Speci men Type: BLOOD SPECIMENOrdering Facility: [facility] Address: [address] [place] [address] Performed By: #### 2 4323-8 ####[facility] LABCLIA [id number] [place] [address] Creatinine [Mass/Vol] 1.19 mg/dL Normal 0.73-1.22 [facility] Comment on above: Order Comment: Sara randle Type: BLOOD SPECIMENOrdering Facility: [facility] Address: [address] [place] [address] Performed By: #### 2 4323-8 ####[facility] LABCLIA [id number] [place] [address] Creatinine and Glomerular filtration rate.predicted panel (S/P/Bld) 67 mL/min/1.73m??? Normal >=60 [facility] Comment on above: Order Comment: Sara randle Type: BLOOD SPECIMENOrdering Facility: [facility] Address: [address] [place] [address] Result Comment: Carol mated Glomerular Filtration Rate [...] actual GFR. Performed By: #### 2 4323-8 ####[facility] LABCLIA [id number] [place] [address] Glucose [Mass/Vol] 98 mg/dL Normal 74-99 [facility] Comment on above: Order Comment: Sara randle Type: BLOOD SPECIMENOrdering Facility: [facility] Address: [address] [place] [address] Result Comment: The [place] Diabetes Association (ADA) provides guidance for cutoff [...] Standards of Medical Care in Diabetes 2016, [place] [employer]. Diabetes Care. 2016.39(Suppl 1). Performed By: #### 2 4323-8 ####[facility] LABCLIA [id number] [place] [address] Potassium [Moles/Vol] 4.4 mmol/L Normal 3.7-5.1 [facility] Comment on above: Order Comment: Speci men Type: BLOOD SPECIMENOrdering Facility: [facility] Address: [address] [place] [address] Performed By: #### 2 4323-8 ####[facility] LABCLIA [id number] [place] [address] Protein [Mass/Vol] 6.3 g/dL Normal 6.3-8.0 [facility] Comment on above: Order Comment: Speci men Type: BLOOD SPECIMENOrdering Facility: [facility] Address: [address] [place] [address] Performed By: #### 2 4323-8 ####[facility] LABCLIA [id number] [place] [address] Sodium [Moles/Vol] 142 mmol/L Normal 136-144 [facility] Comment on above: Order Comment: Speci men Type: BLOOD SPECIMENOrdering Facility: [facility] Address: [address] [place] [address] Performed By: #### 2 4323-8 ####[facility] LABCLIA [id number] [place] [address] Urea nitrogen [Mass/Vol] 16 mg/dL Normal 9-24 [facility] Comment on above: Order Comment: Speci men Type: BLOOD SPECIMENOrdering Facility: [facility] Address: [address] [place] [address] Performed By: #### 2 4323-8 ####[facility] LABCLIA [id number] [place] [address] Ambulatory Visit Summaryon 0 06-08-2024 Ambulatory Visit [...] for choosing us for your care. Normal [facility] 06-02-2024 CNPN Normal [facility] 05-17-2024 CNPN Normal [facility] C-REACTIVE PROTEINon 024 CRP [Mass/Vol] [facility] CBC W Auto Differential pane l (Bld)on 05-13-2024 Basophils (Bld) [#/Vol] [facility] Basophils/100 WBC (Bld) 1.3 % [facility] Differential cell count method Nom (Bld) Auto [facility] Eosinophils (Bld) [#/Vol] 0.05 10*3/uL [facility] Eosinophils/100 WBC (Bld) 3.3 % [facility] Erythrocyte distribution width (RBC) [Ratio] 19.9 % High 11.5 - 15.0 % [facility] Hematocrit (Bld) [Volume fraction] 36.9 % Low 39.0 - 51.0 % [facility] Hemoglobin (Bld) [Mass/Vol] 12.9 g/dL Low 13.0 - 17.0 g/dL [facility] Immature granulocytes (Bld) [#/Vol] [facility] Immature granulocytes/100 WBC (Bld) 1.3 % [facility] Interpretation and review of laboratory results Abnormal [facility] Lymphocytes (Bld) [#/Vol] 0.21 10*3/uL Low [facility] Lymphocytes/100 WBC (Bld) 13.8 % [facility] MCH (RBC) [Entitic mass] 33.2 pg 26.0 - 34.0 pg [facility] MCHC (RBC) [Mass/Vol] 35.0 g/dL 30.5 - 36.0 g/dL [facility] MCV (RBC) [Entitic vol] 95.1 fL 80.0 - 100.0 fL [facility] Monocytes (Bld) [#/Vol] 0.31 10*3/uL [facility] Monocytes/100 WBC (Bld) 20.4 % [facility] Neutrophils (Bld) [#/Vol] 0.91 10*3/uL Low [facility] Neutrophils/100 WBC (Bld) 59.9 % [facility] Nucleated RBC (Bld) [#/Vol] NINF [facility] Nucleated RBC/100 WBC (Bld) [Ratio] 0.0 % /100 WBC [facility] Platelet mean volume (Bld) [Entitic vol] 9.7 fL 9.0 - 12.7 fL [facility] Platelets (Bld) [#/Vol] 107 10*3/uL Low [facility] RBC (Bld) [#/Vol] 3.88 10*6/uL Low 4.20 - 6.00 m/uL [facility] WBC (Bld) [#/Vol] 1.52 10*3/uL Low [facility] Comment on above: No clot detected. [facility] Basophils (Bld) [#/Vol] 10*3/uL Normal <0.11 [facility] Comment on above: Order Comment: Speci men Type: BLOOD SPECIMENOrdering Facility: [facility] Address: [address] [place] [address] Performed By: #### 5 7021-8 ####[facility] [id number] [place] [address] [place] Basophils/100 WBC (Bld) 1.3 % Normal [facility] Comment on above: Order Comment: Speci men Type: BLOOD SPECIMENOrdering Facility: [facility] Address: [address] [place] [address] Performed By: #### 5 7021-8 ####[facility] [place] [id number] [place] [address] [place] Differential cell count method Nom (Bld) Auto Normal [facility] Comment on above: Order Comment: Speci men Type: BLOOD SPECIMENOrdering Facility: [facility] Address: [address] [place] [address] Performed By: #### 5 7021-8 ####[facility] [id number] [place] [address] [place] Eosinophils (Bld) [#/Vol] 0.05 10*3/uL Normal <0.46 [facility] Comment on above: Order Comment: Speci men Type: BLOOD SPECIMENOrdering Facility: [facility] Address: [address] [place] [address] Performed By: #### 5 7021-8 ####[facility] [id number] [place] [address] [place] Eosinophils/100 WBC (Bld) 3.3 % Normal [facility] Comment on above: Order Comment: Speci men Type: BLOOD SPECIMENOrdering Facility: [facility] Address: [address] [place] [address] Performed By: #### 5 7021-8 ####[facility] [place] [id number] [place] [address] [place] Erythrocyte distribution width (RBC) [Ratio] 19.9 % High 11.5-15.0 [facility] Comment on above: Order Comment: Speci men Type: BLOOD SPECIMENOrdering Facility: [facility] Address: [address] [place] [address] Performed By: #### 5 7021-8 ####[facility] [place] [id number] [place] [address] [place] Hematocrit (Bld) [Volume fraction] 36.9 % Low 39.0-51.0 [facility] Comment on above: Order Comment: Speci men Type: BLOOD SPECIMENOrdering Facility: [facility] Address: [address] [place] [address] Performed By: #### 5 7021-8 ####[facility] [place] [id number] [place] [address] [place] Hemoglobin (Bld) [Mass/Vol] 12.9 g/dL Low 13.0-17.0 [facility] Comment on above: Order Comment: Speci men Type: BLOOD SPECIMENOrdering Facility: [facility] Address: [address] [place] [address] Performed By: #### 5 7021-8 ####[facility] [id number] [place] [address] [place] Immature granulocytes (Bld) [#/Vol] 10*3/uL Normal <0.10 [facility] Comment on above: Order Comment: Speci men Type: BLOOD SPECIMENOrdering Facility: [facility] Address: [address] [place] [address] Performed By: #### 5 7021-8 ####[facility] [id number] [place] [address] [place] Immature granulocytes/100 WBC (Bld) 1.3 % Normal [facility] Comment on above: Order Comment: Speci men Type: BLOOD SPECIMENOrdering Facility: [facility] Address: [address] [place] [address] Performed By: #### 5 7021-8 ####[facility] [id number] [place] [address] [place] Lymphocytes (Bld) [#/Vol] 0.21 10*3/uL Low 1.00-4.00 [facility] Comment on above: Order Comment: Speci men Type: BLOOD SPECIMENOrdering Facility: [facility] Address: [address] [place] [address] Performed By: #### 5 7021-8 ####[facility] [id number] [place] [address] [place] Lymphocytes/100 WBC (Bld) 13.8 % Normal [facility] Comment on above: Order Comment: Speci men Type: BLOOD SPECIMENOrdering Facility: [facility] Address: [address] [place] [address] Performed By: #### 5 7021-8 ####[facility] [id number] [place] [address] [place] MCH (RBC) [Entitic mass] 33.2 pg Normal 26.0-34.0 [facility] Comment on above: Order Comment: Speci men Type: BLOOD SPECIMENOrdering Facility: [facility] Address: [address] [place] [address] Performed By: #### 5 7021-8 ####[facility] [id number] [place] [address] [place] MCHC (RBC) [Mass/Vol] 35.0 g/dL Normal 30.5-36.0 [facility] Comment on above: Order Comment: Speci men Type: BLOOD SPECIMENOrdering Facility: [facility] Address: [address] [place] [address] Performed By: #### 5 7021-8 ####[facility] [id number] [place] [address] [place] MCV (RBC) [Entitic vol] 95.1 fL Normal 80.0-100.0 [facility] Comment on above: Order Comment: Speci men Type: BLOOD SPECIMENOrdering Facility: [facility] Address: [address] [place] [address] Performed By: #### 5 7021-8 ####[facility] [id number] [place] [address] [place] Monocytes (Bld) [#/Vol] 0.31 10*3/uL Normal <0.87 [facility] Comment on above: Order Comment: Speci men Type: BLOOD SPECIMENOrdering Facility: [facility] Address: [address] [place] [address] Performed By: #### 5 7021-8 ####[facility] [id number] [address] [place] Monocytes/100 WBC (Bld) 20.4 % Normal [facility] Comment on above: Order Comment: Speci men Type: BLOOD SPECIMENOrdering Facility: [facility] Address: [address] [place] [address] Performed By: #### 5 7021-8 ####[facility] [id number] [place] [address] [place] Neutrophils (Bld) [#/Vol] 0.91 10*3/uL Low 1.45-7.50 [facility] Comment on above: Order Comment: Speci men Type: BLOOD SPECIMENOrdering Facility: [facility] Address: [address] [place] [address] Performed By: #### 5 7021-8 ####[facility] [id number] [place] [address] [place] Neutrophils/100 WBC (Bld) 59.9 % Normal [facility] Comment on above: Order Comment: Speci men Type: BLOOD SPECIMENOrdering Facility: [facility] Address: [address] [place] [address] Performed By: #### 5 7021-8 ####[facility] [id number] [place] [address] [place] Nucleated RBC (Bld) [#/Vol] 10*3/uL Normal <0.01 [facility] Comment on above: Order Comment: Speci men Type: BLOOD SPECIMENOrdering Facility: [facility] Address: [address] [place] [address] Performed By: #### 5 7021-8 ####[facility] [id number] [place] [address] [place] Nucleated RBC/100 WBC (Bld) [Ratio] 0.0 /100 WBC Normal [facility] Comment on above: Order Comment: Speci men Type: BLOOD SPECIMENOrdering Facility: [facility] Address: [address] [place] [address] Performed By: #### 5 7021-8 ####[facility] [id number] [place] [address] [place] Platelet mean volume (Bld) [Entitic vol] 9.7 fL Normal 9.0-12.7 [facility] Comment on above: Order Comment: Speci men Type: BLOOD SPECIMENOrdering Facility: [facility] Address: [address] [place] [address] Performed By: #### 5 7021-8 ####[facility] [id number] [place] [address] [place] Platelets (Bld) [#/Vol] 107 10*3/uL Low 150-400 [facility] Comment on above: Order Comment: Speci men Type: BLOOD SPECIMENOrdering Facility: [facility] Address: [address] [place] [address] Performed By: #### 5 7021-8 ####[facility] [id number] [place] [address] [place] RBC (Bld) [#/Vol] 3.88 10*6/uL Low 4.20-6.00 [facility] Comment on above: Order Comment: Speci men Type: BLOOD SPECIMENOrdering Facility: [facility] Address: [address] [place] [address] Performed By: #### 5 7021-8 ####[facility] [id number] [place] [address] [place] WBC (Bld) [#/Vol] 1.52 10*3/uL Low 3.70-11.00 [facility] Comment on above: Order Comment: Speci men Type: BLOOD SPECIMENOrdering Facility: [facility] Address: [address] [place] [address] Result Comment: No c lot detected. Performed By: #### 5 7021-8 ####[facility] [id number] [place] [address] [place] CNOVon 07-11-2024 CNOV Normal [facility] CNOVSPon 05-13-2024 CNOVSP Normal [facility] CRP SerPl-mCncon 05-13-2024 CRP [Mass/Vol] mg/L Normal <0.9 [facility] Comment on above: Order Comment: Speci men Type: BLOOD SPECIMENOrdering Facility: [facility] Address: [address] [place] [address] Performed By: #### 1 988-5, 2276-4 ####[facility] LABCLIA [id number] [place] [id number] [place] CRP [Mass/Vol]on 05-13-2024 Interpretation and review of laboratory results Normal [facility] CYTOMEGALOVIRUS (CMV) DNA, Q UANTITATIVE PCR, PLASMAon 05-13-2024 CMV DNA HARVEY+probe Qn (P) Not detected Normal Not Detected [facility] Comment on above: Order Comment: Speci men Type: BLOOD SPECIMENOrdering Facility: [facility] Address: [address] [place] [address] Performed By: #### C MVQNT ####[facility] LABIA [id number] [place] [address] [place] Comprehensive metabolic 2000 panelon 05-13-2024 Albumin [Mass/Vol] 4.6 g/dL 3.9 - 4.9 g/dL [facility] ALP [Catalytic activity/Vol] 118 U/L High 38 - 113 U/L [facility] ALT [Catalytic activity/Vol] 40 U/L 10 - 54 U/L [facility] Anion gap [Moles/Vol] 11 mmol/L 8 - 15 mmol/L [facility] AST [Catalytic activity/Vol] 27 U/L 14 - 40 U/L [facility] Bilirubin [Mass/Vol] 0.5 mg/dL 0.2 - 1 .3 mg/dL [facility] Calcium [Mass/Vol] 9.6 mg/dL 8.5 - 10. 2 mg/dL [facility] Chloride [Moles/Vol] 106 mmol/L 98 - 10 7 mmol/L [facility] CO2 [Moles/Vol] 24 mmol/L 22 - 30 mmol/L [facility] Creatinine [Mass/Vol] 1.01 mg/dL 0.73 - 1.22 mg/dL [facility] GFR/1.73 sq M.predicted among non-blacks MDRD (S/P/Bld) [Vol rate/Area] 82 mL/min/{1.73_m2} - PINF [facility] Comment on above: Estimated Glomerular Filtration Rate [...] [Mass/Vol] 99 mg/dL 74 - 99 mg/dL [facility] Comment on above: The [place] Di[employer] Association (ADA) provides guidance for [...] Standards of Medical Care in Diabetes 2016, [place] [employer]. Diabetes Care. 2016.39(Suppl 1). Interpretation and review of laboratory results Abnormal [facility] Potassium [Moles/Vol] 4.6 mmol/L 3.7 - 5.1 mmol/L [facility] Protein [Mass/Vol] 6.8 g/dL 6.3 - 8.0 g/dL [facility] Sodium [Moles/Vol] 141 mmol/L 136 - 144 mmol/L [facility] Urea nitrogen [Mass/Vol] 16 mg/dL 9 - 24 mg/dL [facility] Albumin [Mass/Vol] 4.6 g/dL Normal 3.9-4.9 [facility] Comment on above: Order Comment: Speci men Type: BLOOD SPECIMENOrdering Facility: [facility] Address: [address] [place] [address] Performed By: #### 2 4323-8, 70820-1, 2776-1 ####[facility] [id number] [place] [address] [place] ALP [Catalytic activity/Vol] 118 U/L High 38-113 [facility] Comment on above: Order Comment: Speci men Type: BLOOD SPECIMENOrdering Facility: [facility] Address: [address] [place] [address] Performed By: #### 2 4323-8, 79740-7, 2776- ####[facility] [id number] [place] [address] [place] ALT [Catalytic activity/Vol] 40 U/L Normal 10-54 [facility] Comment on above: Order Comment: Speci men Type: BLOOD SPECIMENOrdering Facility: [facility] Address: [address] [place] [address] Performed By: #### 2 4323-8, , 2776-11 ####[facility] [id number] [place] [address] [place] Anion gap [Moles/Vol] 11 mmol/L Normal 8-15 [facility] Comment on above: Order Comment: Speci men Type: BLOOD SPECIMENOrdering Facility: [facility] Address: [address] [place] [address] Performed By: #### 2 4323-8, 55631-6, 2776- ####[facility] [id number] [place] [address] [place] AST [Catalytic activity/Vol] 27 U/L Normal 14-40 [facility] Comment on above: Order Comment: Speci men Type: BLOOD SPECIMENOrdering Facility: [facility] Address: [address] [place] [address] Performed By: #### 2 4323-8, , 2776-11 ####[facility] [id number] [place] [address] [place] Bilirubin [Mass/Vol] 0.5 mg/dL Normal 0.2-1.3 [facility] Comment on above: Order Comment: Speci men Type: BLOOD SPECIMENOrdering Facility: [facility] Address: [address] [place] [address] Performed By: #### 2 4323-8, , 2776-11 ####[facility] [id number] [place] [address] [place] Calcium [Mass/Vol] 9.6 mg/dL Normal 8.5-10.2 [facility] Comment on above: Order Comment: Speci men Type: BLOOD SPECIMENOrdering Facility: [facility] Address: [address] [place] [address] Performed By: #### 2 432-8, , 2776-11 ####[facility] [id number] [place] [address] [place] Chloride [Moles/Vol] 106 mmol/L Normal 98-107 [facility] Comment on above: Order Comment: Speci men Type: BLOOD SPECIMENOrdering Facility: [facility] Address: [address] [place] [address] Performed By: #### 2 4323-8, , 2776-11 ####[facility] [id number] [place] [id number] [place] CO2 [Moles/Vol] 24 mmol/L Normal 22-30 [facility] Comment on above: Order Comment: Speci men Type: BLOOD SPECIMENOrdering Facility: [facility] Address: [address] [place] [address] Performed By: #### 2 4323-8, , 2776-11 ####[facility] [id number] [place] [address] [place] Creatinine [Mass/Vol] 1.01 mg/dL Normal 0.73-1.22 [facility] Comment on above: Order Comment: Sara randle Type: BLOOD SPECIMENOrdering Facility: [facility] Address: [address] [place] [address] Performed By: #### 2 4323-8, 43794-5, 2776-11 ####[facility] [id number] [place] [address] [place] Creatinine and Glomerular filtration rate.predicted panel (S/P/Bld) 82 mL/min/1.73m??? Normal >=60 [facility] Comment on above: Order Comment: Sara randle Type: BLOOD SPECIMENOrdering Facility: [facility] Address: [address] [place] [address] Result Comment: Carol mated Glomerular Filtration Rate [...] actual GFR. Performed By: #### 2 4323-8, 12801-2, 2776-11 ####[facility] [id number] [place] [address] [place] Glucose [Mass/Vol] 99 mg/dL Normal 74-99 [facility] Comment on above: Order Comment: Speci razia Type: BLOOD SPECIMENOrdering Facility: [facility] Address: [address] [place] [address] Result Comment: The [place] Diabetes Association (ADA) provides guidance for cutoff [...] Standards of Medical Care in Diabetes 2016, [place] [employer]. Diabetes Care. 2016.39(Suppl 1). Performed By: #### 2 4323-8, , 2776-11 ####[facility] [id number] [place] [address] [place] Potassium [Moles/Vol] 4.6 mmol/L Normal 3.7-5.1 [facility] Comment on above: Order Comment: Sara randle Type: BLOOD SPECIMENOrdering Facility: [facility] Address: [address] [place] [address] Performed By: #### 2 4323-8, , 2776-11 ####[facility] [id number] [place] [address] [place] Protein [Mass/Vol] 6.8 g/dL Normal 6.3-8.0 [facility] Comment on above: Order Comment: Sara randle Type: BLOOD SPECIMENOrdering Facility: [facility] Address: [address] [place] [address] Performed By: #### 2 4323-8, , 2776-11 ####[facility] [id number] [place] [address] [place] Sodium [Moles/Vol] 141 mmol/L Normal 136-144 [facility] Comment on above: Order Comment: Sara randle Type: BLOOD SPECIMENOrdering Facility: [facility] Address: [address] [place] [address] Performed By: #### 2 4323-8, , 2776-11 ####[facility] [id number] [address] [id number] [address] [place] Urea nitrogen [Mass/Vol] 16 mg/dL Normal 9-24 [facility] Comment on above: Order Comment: Speci men Type: BLOOD SPECIMENOrdering Facility: [facility] Address: [address] [place] [address] Performed By: #### 2 4323-8, 22445-1, 2777-1 ####[facility] [id number] [place] [address] [place] FERRITINon 05-13-2024 Ferritin [Mass/Vol] 584.0 ng/mL High 30.3 - 565.7 ng/mL [facility] Ferritin SerPl-mCncon 2023 Ferritin [Mass/Vol] 584.0 ng/mL High 30.3-565.[address] [facility] Comment on above: Order Comment: Speci men Type: BLOOD SPECIMENOrdering Facility: [facility] Address: [address] [place] [address] Performed By: #### 1 988-5, 2276-4 ####[facility] LABIA [id number] [place] [address] [place] Ferritin [Mass/Vol]on 2023 Interpretation and review of laboratory results Abnormal [facility] IMMUNOGLOBULINS,IGG,IGA,IGMo n 05-13-2024 IgA [Mass/Vol] 27 mg/dL Low 70-400 [facility] Comment on above: Order Comment: Speci men Type: BLOOD SPECIMENOrdering Facility: [facility] Address: [address] [place] [address] Performed By: #### S ERIMM ####[facility] [id number] [place] [address] [place] IgG [Mass/Vol] 821 mg/dL Normal 700-1600 [facility] Comment on above: Order Comment: Speci men Type: BLOOD SPECIMENOrdering Facility: [facility] Address: [address] [place] [address] Performed By: #### S ERIMM ####[facility] LABCLIA [id number] [place] [address] [place] IgM [Mass/Vol] 9 mg/dL Low 40-230 [facility] Comment on above: Order Comment: Speci men Type: BLOOD SPECIMENOrdering Facility: [facility] Address: [address] [place] [address] Performed By: #### S ERIMM ####[facility] LABCLIA [id number] [place] [address] [place] Immunodeficiency panel FC (B ld)on 05-13-2024 CD3 cells (Bld) [#/Vol] 134 cells/uL Low 248-6533 [facility] Comment on above: Order Comment: Speci men Type: BLOOD SPECIMENOrdering Facility: [facility] Address: [address] [place] [address] Performed By: #### 4 5268-0 ####[facility] LABIA [id number] [place] [address] [place] CD3 cells/100 cells (Bld) 49 % Low 60-89 [facility] Comment on above: Order Comment: Speci men Type: BLOOD SPECIMENOrdering Facility: [facility] Address: [address] [place] [address] Performed By: #### 4 5268-0 ####[facility] LABIA [id number] [place] [address] [place] CD3+CD4+ (T4 helper) cells (Bld) [#/Vol] 35 cells/uL Low 533-6174 [facility] Comment on above: Order Comment: Speci men Type: BLOOD SPECIMENOrdering Facility: [facility] Address: [address] [place] [address] Performed By: #### 4 5268-0 ####[facility] LABIA [id number] [address] [id number] [address] [place] CD3+CD4+ (T4 helper) cells/100 cells (Bld) 13 % Low 34-61 [facility] Comment on above: Order Comment: Speci men Type: BLOOD SPECIMENOrdering Facility: [facility] Address: [address] [place] [address] Performed By: #### 4 5268-0 ####[facility] LABCLIA [id number] [place] [address] [place] CD3+CD4+ (T4 helper) cells/CD3+CD8+ (T8 suppressor cells) cells (Bld) [# ratio] 0.35 % Low 1.10-3.25 [facility] Comment on above: Order Comment: Speci men Type: BLOOD SPECIMENOrdering Facility: [facility] Address: [address] [place] [address] Performed By: #### 4 5268-0 ####[facility] LABIA [id number] [place] [address] [place] CD3+CD8+ (T8 suppressor cells) cells (Bld) [#/Vol] 100 cells/uL Low 175-958 [facility] Comment on above: Order Comment: Speci men Type: BLOOD SPECIMENOrdering Facility: [facility] Address: [address] [place] [address] Performed By: #### 4 5268-0 ####[facility] LABIA [id number] [place] [address] [place] CD3+CD8+ (T8 suppressor cells) cells/100 cells (Bld) 37 % Normal 10-41 [facility] Comment on above: Order Comment: Speci men Type: BLOOD SPECIMENOrdering Facility: [facility] Address: [address] [place] [address] Performed By: #### 4 5268-0 ####[facility] LABCLIA [id number] [place] [address] [place] CD3-CD16+CD56+ (Natural killer) cells (Bld) [#/Vol] 127 cells/uL Normal 102-565 [facility] Comment on above: Order Comment: Speci men Type: BLOOD SPECIMENOrdering Facility: [facility] Address: [address] [place] [address] Performed By: #### 4 5268-0 ####[facility] LABCLIA [id number] [place] [address] [place] CD3-CD16+CD56+ (Natural killer) cells/100 cells (Bld) 47 % High 5-25 [facility] Comment on above: Order Comment: Speci men Type: BLOOD SPECIMENOrdering Facility: [facility] Address: [address] [place] [address] Performed By: #### 4 5268-0 ####[facility] LABIA [id number] [place] [address] [place] CD3-CD19+ cells (Bld) [#/Vol] 2 cells/uL Low 75-660 [facility] Comment on above: Order Comment: Speci men Type: BLOOD SPECIMENOrdering Facility: [facility] Address: [address] [place] [address] Performed By: #### 4 5268-0 ####[facility] LABIA [id number] [place] [address] [place] CD3-CD19+ cells/100 cells (Bld) 1 % Low 5-22 [facility] Comment on above: Order Comment: Speci men Type: BLOOD SPECIMENOrdering Facility: [facility] Address: [address] [place] [address] Performed By: #### 4 5268-0 ####[facility] LABIA [id number] [place] [address] [place] LACTATE DEHYDROGENASEon 07- LDH [Catalytic activity/Vol] 289 U/L High 135 - 225 U/L [facility] Comment on above: Hemolysis present. T he [...] LDH [Catalytic activity/Vol] 289 U/L High 135-225 [facility] Comment on above: Order Comment: Sara randle Type: BLOOD SPECIMENOrdering Facility: [facility] Address: [address] [place] [address] Result Comment: Hemo lysis present. The origin [...] indicated. Performed By: #### 2 532-0 ####[facility] [place] [id number] [address] [place] LDH [Catalytic activity/Vol] on 05-13-2024 Interpretation and review of laboratory results Abnormal [facility] MAGNESIUMon 05-13-2024 Magnesium [Mass/Vol] 2.1 mg/dL 1.7 - 2 .3 mg/dL [facility] Magnesium SerPl-mCncon 05-13 Magnesium [Mass/Vol] 2.1 mg/dL Normal 1.7-2.3 [facility] Comment on above: Order Comment: Sara randle Type: BLOOD SPECIMENOrdering Facility: [facility] Address: [address] [place] [address] Performed By: #### 2 4323-8, 02142-1, 2777-1 ####[facility] [place] [id number] [address] [place] No Panel Informationon 05-13 Interpretation and review of laboratory results Normal [facility] PHOSPHORUS INORGANICon 05-13 Phosphate [Mass/Vol] 4.1 mg/dL 2.7 - 4 .8 mg/dL [facility] Phosphate SerPl-mCncon 05-13 Phosphate [Mass/Vol] 4.1 mg/dL Normal 2.7-4.8 [facility] Comment on above: Order Comment: Speci men Type: BLOOD SPECIMENOrdering Facility: [facility] Address: [address] [place] [address] Performed By: #### 2 4323-8, 77670-9, 2777-1 ####[facility] [id number] [facility] [id number] [address] [place] PET+CT Guidance for [...] any questions regarding this interpretation, please call [phone]. If you are unable to reach us at the number above, please feel free to contact [facility] at [phone]. DIVISION OF RADIOLOGY * * *Final Report* [...] * Radiopharmaceutical Activity: 10.1 mCi * Radiopharmaceutical: K38-Almokskpffdkbufivl (FDG) * All reported standardized uptake values represent maximum SUV (SUVmax) per body weight, unless otherwise specified. COMPARISON: PET/CT 03/25/2024 RESULT: REFERENCES: SUV reference values: * Blood pool (descending aorta) activity: SUVmax 2.7 * Background liver activity: SUVmax 3.7 Dietitian Therapeutic (topogram) images: No additional findings. Notes and [...] No abnormal uptake. DIVISION OF RADIOLOGY Provider, [facility] - 05/11/2024 * * *Final Report* * [...] * Radiopharmaceutical Activity: 10.1 mCi * Radiopharmaceutical: W85-Khhuxpuzhatwxwdnmz (FDG) * All reported standardized uptake values represent maximum SUV (SUVmax) per body weight, unless otherwise specified. COMPARISON: PET/CT 03/25/2024 RESULT: REFERENCES: SUV reference values: * Blood pool (descending aorta) activity: SUVmax 2.7 * Background liver activity: SUVmax 3.7 Dietitian Therapeutic (topogram) images: No additional findings. Notes and [...] any questions regarding this interpretation, please call [phone]. If you are unable to reach us at the number abov (more content not included)... [facility] PET+CT Guidance for localiza tion of tumor of Skull base to mid-thigh-- W 18F-FDG IVOrdered By: Ccf Provider on 05-11-2024 [facility] GLUCOSE, BLOOD (POC)on 05-07 Glucose [Mass/Vol] 95 mg/dL 74 - 99 mg/dL [facility] Comment on above: Location:[facility], [address] [place] [address] , [place], [place], [facility] The Accu-Chek Inform II glucose meter [...] blood gas instrument) in the above situations. [facility] NM PET/CT SKULL-THIGH SUBQon 05-07-2024 NM PET/CT SKULL-THIGH SUBQ Normal [facility] PET+CT Guidance for localiza tion of tumor of Skull base to mid-thigh-- W 18F-FDG Bella 05-07-2024 Radiology Study observation (narrative) [facility] CBC W Auto Differential pane l (Bld)on 05-03-2024 Anisocytosis Ql (Bld) Present Normal [facility] Comment on above: Order Comment: Speci men Type: BLOOD SPECIMENOrdering Facility: [facility] Address: [address] [place] [address] Performed By: #### 5 7021-8 ####[facility] LABCLIA [id number] [address] LABCLIA [id number] [place] [address] [place] Basophils (Bld) [#/Vol] 0.02 10*3/uL Normal <0.11 [facility] Comment on above: Order Comment: Speci men Type: BLOOD SPECIMENOrdering Facility: [facility] Address: [address] [place] [address] Performed By: #### 5 7021-8 ####[facility] LABCLIA [id number] [address] LABCLIA [id number] [place] [address] [place] Basophils/100 WBC (Bld) 1.3 % Normal [facility] Comment on above: Order Comment: Speci men Type: BLOOD SPECIMENOrdering Facility: [facility] Address: [address] [place] [address] Performed By: #### 5 7021-8 ####[facility] LABCLIA [id number] [address] LABCLIA [id number] [place] [address] [place] Differential cell count method Nom (Bld) Manual Normal [facility] Comment on above: Order Comment: Speci men Type: BLOOD SPECIMENOrdering Facility: [facility] Address: [address] [place] [address] Performed By: #### 5 7021-8 ####[facility] LABCLIA [id number] [address] LABCLIA [id number] [place] [address] [place] Eosinophils (Bld) [#/Vol] 0.03 10*3/uL Normal <0.46 [facility] Comment on above: Order Comment: Speci men Type: BLOOD SPECIMENOrdering Facility: [facility] Address: [address] [place] [address] Performed By: #### 5 7021-8 ####[facility] LABCLIA [id number] [address] LABCLIA [id number] [place] [address] [place] Eosinophils/100 WBC (Bld) 1.7 % Normal [facility] Comment on above: Order Comment: Speci men Type: BLOOD SPECIMENOrdering Facility: [facility] Address: [address] [place] [address] Performed By: #### 5 7021-8 ####[facility] LABCLIA [id number] [place] [address] LABCLIA [id number] [place] [address] [place] Erythrocyte distribution width (RBC) [Ratio] 19.4 % High 11.5-15.0 [facility] Comment on above: Order Comment: Speci men Type: BLOOD SPECIMENOrdering Facility: [facility] Address: [address] [place] [address] Performed By: #### 5 7021-8 ####[facility] LABCLIA [id number] [address] LABCLIA [id number] [place] [address] [place] Hematocrit (Bld) [Volume fraction] 39.0 % Normal 39.0-51.0 [facility] Comment on above: Order Comment: Speci men Type: BLOOD SPECIMENOrdering Facility: [facility] Address: [address] [place] [address] Performed By: #### 5 7021-8 ####[facility] LABCLIA [id number] [address] LABCLIA [id number] [place] [address] [place] Hemoglobin (Bld) [Mass/Vol] 13.1 g/dL Normal 13.0-17.0 [facility] Comment on above: Order Comment: Speci men Type: BLOOD SPECIMENOrdering Facility: [facility] Address: [address] [place] [address] Performed By: #### 5 7021-8 ####[facility] LABCLIA [id number] [address] LABCLIA [id number] [place] [address] [place] Lymphocytes (Bld) [#/Vol] 0.33 10*3/uL Low 1.00-4.00 [facility] Comment on above: Order Comment: Speci men Type: BLOOD SPECIMENOrdering Facility: [facility] Address: [address] [place] [address] Performed By: #### 5 7021-8 ####[facility] LABCLIA [id number] [address] LABCLIA [id number] [place] [address] [place] Lymphocytes/100 WBC (Bld) 19.9 % Normal [facility] Comment on above: Order Comment: Speci men Type: BLOOD SPECIMENOrdering Facility: [facility] Address: [address] [place] [address] Performed By: #### 5 7021-8 ####[facility] LABCLIA [id number] [address] LABCLIA [id number] [place] [address] [place] MCH (RBC) [Entitic mass] 32.3 pg Normal 26.0-34.0 [facility] Comment on above: Order Comment: Speci men Type: BLOOD SPECIMENOrdering Facility: [facility] Address: [address] [place] [address] Performed By: #### 5 7021-8 ####[facility] LABCLIA [id number] [address] LABCLIA [id number] [place] [address] [place] MCHC (RBC) [Mass/Vol] 33.6 g/dL Normal 30.5-36.0 [facility] Comment on above: Order Comment: Speci men Type: BLOOD SPECIMENOrdering Facility: [facility] Address: [address] [place] [address] Performed By: #### 5 7021-8 ####[facility] LABCLIA [id number] [address] LABCLIA [id number] [place] [address] [place] MCV (RBC) [Entitic vol] 96.3 fL Normal 80.0-100.0 [facility] Comment on above: Order Comment: Speci men Type: BLOOD SPECIMENOrdering Facility: [facility] Address: [address] [place] [address] Performed By: #### 5 7021-8 ####[facility] LABCLIA [id number] [address] LABCLIA [id number] [place] [address] [place] Monocytes (Bld) [#/Vol] 0.28 10*3/uL Normal <0.87 [facility] Comment on above: Order Comment: Speci men Type: BLOOD SPECIMENOrdering Facility: [facility] Address: [address] [place] [address] Performed By: #### 5 7021-8 ####[facility] LABCLIA [id number] [address] LABCLIA [id number] [place] [address] [place] Monocytes/100 WBC (Bld) 16.9 % Normal [facility] Comment on above: Order Comment: Speci men Type: BLOOD SPECIMENOrdering Facility: [facility] Address: [address] [place] [address] Performed By: #### 5 7021-8 ####[facility] LABCLIA [id number] [address] LABCLIA [id number] [place] [address] [place] Neutrophils (Bld) [#/Vol] 0.99 10*3/uL Low 1.45-7.50 [facility] Comment on above: Order Comment: Speci men Type: BLOOD SPECIMENOrdering Facility: [facility] Address: [address] [place] [address] Performed By: #### 5 7021-8 ####[facility] LABCLIA [id number] [address] LABCLIA [id number] [place] [address] [place] Neutrophils/100 WBC (Bld) 60.2 % Normal [facility] Comment on above: Order Comment: Speci men Type: BLOOD SPECIMENOrdering Facility: [facility] Address: [address] [place] [address] Performed By: #### 5 7021-8 ####[facility] LABCLIA [id number] [address] LABCLIA [id number] [place] [address] [place] Nucleated RBC (Bld) [#/Vol] 10*3/uL Normal <0.01 [facility] Comment on above: Order Comment: Speci men Type: BLOOD SPECIMENOrdering Facility: [facility] Address: [address] [place] [address] Performed By: #### 5 7021-8 ####[facility] LABCLIA [id number] [address] LABCLIA [id number] [place] [address] [place] Nucleated RBC/100 WBC (Bld) [Ratio] 0.0 /100 WBC Normal [facility] Comment on above: Order Comment: Speci men Type: BLOOD SPECIMENOrdering Facility: [facility] Address: [address] [place] [address] Performed By: #### 5 7021-8 ####[facility] LABCLIA [id number] [address] LABCLIA [id number] [place] [address] [place] Ovalocytes LM Ql (Bld) Few Normal [facility] Comment on above: Order Comment: Speci men Type: BLOOD SPECIMENOrdering Facility: [facility] Address: [address] [place] [address] Performed By: #### 5 7021-8 ####[facility] LABCLIA [id number] [address] LABCLIA [id number] [place] [address] [place] Platelet mean volume (Bld) [Entitic vol] 9.8 fL Normal 9.0-12.7 [facility] Comment on above: Order Comment: Speci men Type: BLOOD SPECIMENOrdering Facility: [facility] Address: [address] [place] [address] Performed By: #### 5 7021-8 ####[facility] LABCLIA [id number] [address] LABCLIA [id number] [place] [address] [place] Platelets (Bld) [#/Vol] 82 10*3/uL Low 150-400 [facility] Comment on above: Order Comment: Speci men Type: BLOOD SPECIMENOrdering Facility: [facility] Address: [address] [place] [address] Result Comment: No c lot detected. Performed By: #### 5 7021-8 ####[facility] LABCLIA [id number] [address] LABCLIA [id number] [place] [address] [place] Platelets Estimate (Bld) [#/Vol] Decreased Normal [facility] Comment on above: Order Comment: Speci men Type: BLOOD SPECIMENOrdering Facility: [facility] Address: [address] [place] [address] Performed By: #### 5 7021-8 ####[facility] LABCLIA [id number] [address] LABCLIA [id number] [place] [address] [place] Polychromasia LM Ql (Bld) Slight Normal [facility] Comment on above: Order Comment: Speci men Type: BLOOD SPECIMENOrdering Facility: [facility] Address: [address] [place] [address] Performed By: #### 5 7021-8 ####[facility] LABCLIA [id number] [place] [address] LABCLIA [id number] [place] [address] [place] RBC (Bld) [#/Vol] 4.05 10*6/uL Low 4.20-6.00 [facility] Comment on above: Order Comment: Speci men Type: BLOOD SPECIMENOrdering Facility: [facility] Address: [address] [place] [address] Performed By: #### 5 7021-8 ####[facility] LABCLIA [id number] [address] LABCLIA [id number] [place] [address] [place] RED CELL MORPH Reviewed: see result s of individual morphologies Normal [facility] Comment on above: Order Comment: Speci men Type: BLOOD SPECIMENOrdering Facility: [facility] Address: [address] [place] [address] Performed By: #### 5 7021-8 ####[facility] LABCLIA [id number] [address] LABCLIA [id number] [place] [address] [place] WBC (Bld) [#/Vol] 1.64 10*3/uL Low 3.70-11.00 [facility] Comment on above: Order Comment: Speci men Type: BLOOD SPECIMENOrdering Facility: [facility] Address: [address] [place] [address] Result Comment: No c lot detected. Performed By: #### 5 7021-8 ####[facility] LABCLIA [id number] [address] LABCLIA [id number] [place] [address] [place] CNPNon 05-03-2024 CNPN Normal [facility] Comprehensive metabolic 2000 panelon 05-03-2024 Albumin [Mass/Vol] 4.4 g/dL Normal 3.9-4.9 [facility] Comment on above: Order Comment: Speci men Type: BLOOD SPECIMENOrdering Facility: [facility] Address: [address] [place] [address] Performed By: #### 1 9123-9, 25111-2 ####[facility] LABCLIA [id number] [place] [address] ALP [Catalytic activity/Vol] 146 U/L High 38-113 [facility] Comment on above: Order Comment: Speci men Type: BLOOD SPECIMENOrdering Facility: [facility] Address: [address] [place] [address] Performed By: #### 1 9123-9, 74011-5 ####[facility] LABCLIA [id number] [place] [address] ALT [Catalytic activity/Vol] 37 U/L Normal 10-54 [facility] Comment on above: Order Comment: Speci men Type: BLOOD SPECIMENOrdering Facility: [facility] Address: [address] [place] [address] Performed By: #### 1 9123-9, 85485-3 ####[facility] LABCLIA [id number] [place] [address] Anion gap [Moles/Vol] 11 mmol/L Normal 8-15 [facility] Comment on above: Order Comment: Speci men Type: BLOOD SPECIMENOrdering Facility: [facility] Address: [address] [place] [address] Performed By: #### 1 9123-9, 98079-0 ####[facility] LABCLIA [id number] [place] [address] AST [Catalytic activity/Vol] 23 U/L Normal 14-40 [facility] Comment on above: Order Comment: Speci men Type: BLOOD SPECIMENOrdering Facility: [facility] Address: [address] [place] [address] Performed By: #### 1 9123-9, 99580-7 ####[facility] LABCLIA [id number] [place] [address] Bilirubin [Mass/Vol] 0.3 mg/dL Normal 0.2-1.3 [facility] Comment on above: Order Comment: Speci men Type: BLOOD SPECIMENOrdering Facility: [facility] Address: [address] [place] [address] Performed By: #### 1 9123-9, 14437-2 ####[facility] LABCLIA [id number] [place] [address] Calcium [Mass/Vol] 9.8 mg/dL Normal 8.5-10.2 [facility] Comment on above: Order Comment: Speci men Type: BLOOD SPECIMENOrdering Facility: [facility] Address: [address] [place] [address] Performed By: #### 1 9123-9, 52225-9 ####[facility] LABIA [id number] [place] [address] Chloride [Moles/Vol] 108 mmol/L High 98-107 [facility] Comment on above: Order Comment: Speci men Type: BLOOD SPECIMENOrdering Facility: [facility] Address: [address] [place] [address] Performed By: #### 1 9123-9, 82784-3 ####[facility] LABCLIA [id number] [place] [address] CO2 [Moles/Vol] 24 mmol/L Normal 22-30 [facility] Comment on above: Order Comment: Speci men Type: BLOOD SPECIMENOrdering Facility: [facility] Address: [address] [place], [place] [address] Performed By: #### 1 9123-9, 57118-8 ####[facility] LABCLIA [id number] [place] [address] Creatinine [Mass/Vol] 1.11 mg/dL Normal 0.73-1.22 [facility] Comment on above: Order Comment: Sara randle Type: BLOOD SPECIMENOrdering Facility: [facility] Address: [address] [place] [address] Performed By: #### 1 9123-9, 48852-4 ####[facility] LABCLIA [id number] [place] [address] Creatinine and Glomerular filtration rate.predicted panel (S/P/Bld) 73 mL/min/1.73m??? Normal >=60 [facility] Comment on above: Order Comment: Sara randle Type: BLOOD SPECIMENOrdering Facility: [facility] Address: [address] [place] [address] Result Comment: Carol mated Glomerular Filtration Rate [...] actual GFR. Performed By: #### 1 9123-9, 13432-8 ####[facility] LABCLIA [id number] [place] [address] Glucose [Mass/Vol] 114 mg/dL High 74-99 [facility] Comment on above: Order Comment: Sara randle Type: BLOOD SPECIMENOrdering Facility: [facility] Address: [address] [place] [address] Result Comment: The [place] [employer] (ADA) provides guidance for cutoff [...] Standards of Medical Care in Diabetes 2016, [place] [employer]. Diabetes Care. 2016.39(Suppl 1). Performed By: #### 1 9123-9, ####[facility] LABCLIA [id number] [place] [address] Potassium [Moles/Vol] 4.6 mmol/L Normal 3.7-5.1 [facility] Comment on above: Order Comment: Speci men Type: BLOOD SPECIMENOrdering Facility: [facility] Address: [address] [place] [address] Performed By: #### 1 239, ####[facility] LABIA [id number] [place] [address] Protein [Mass/Vol] 6.6 g/dL Normal 6.3-8.0 [facility] Comment on above: Order Comment: Speci men Type: BLOOD SPECIMENOrdering Facility: [facility] Address: [address] [place], [place] [address] Performed By: #### 1 239, ####[facility] LABIA [id number] [place] [address] Sodium [Moles/Vol] 143 mmol/L Normal 136-144 [facility] Comment on above: Order Comment: Speci men Type: BLOOD SPECIMENOrdering Facility: [facility] Address: [address] [place] [address] Performed By: #### 1 23-9, ####[facility] LABIA [id number] [place] [address] Urea nitrogen [Mass/Vol] 16 mg/dL Normal 9-24 [facility] Comment on above: Order Comment: Speci men Type: BLOOD SPECIMENOrdering Facility: [facility] Address: [address] [place] [address] Performed By: #### 1 9123-9, 61748-2 ####[facility] LABCLIA [id number] [place] [address] Magnesium SerPl-mCncon 05-03 Magnesium [Mass/Vol] 2.2 mg/dL Normal 1.7-2.3 [facility] Comment on above: Order Comment: Speci men Type: BLOOD SPECIMENOrdering Facility: [facility] Address: [address] [place] [address] Performed By: #### 1 9123-9, 38665-8 ####[facility] LABCLIA [id number] [place] [address] CNPNon 04-30-2024 CNPN Normal [facility] C-REACTIVE PROTEINon 024 CRP [Mass/Vol] mg/dL NINF - 0.9 mg/dL [facility] CBC W Auto Differential pane l (Bld)on 04-23-2024 Anisocytosis Ql (Bld) Present Normal [facility] Comment on above: Order Comment: Speci men Type: BLOOD SPECIMENOrdering Facility: [facility] Address: [address] [place] [address] Performed By: #### 5 7021-8 ####[facility] [id number] [place] [address] [place] Basophils (Bld) [#/Vol] 0.02 10*3/uL Normal <0.11 [facility] Comment on above: Order Comment: Speci men Type: BLOOD SPECIMENOrdering Facility: [facility] Address: [address] [place] [address] Performed By: #### 5 7021-8 ####[facility] [id number] [place] [address] [place] Basophils/100 WBC (Bld) 1.0 % Normal [facility] Comment on above: Order Comment: Speci men Type: BLOOD SPECIMENOrdering Facility: [facility] Address: [address] [place] [address] Performed By: #### 5 7021-8 ####[facility] [id number] [place] [address] [place] Differential cell count method Nom (Bld) Manual Normal [facility] Comment on above: Order Comment: Speci men Type: BLOOD SPECIMENOrdering Facility: [facility] Address: [address] [place] [address] Performed By: #### 5 7021-8 ####[facility] [id number] [place] [address] [place] Eosinophils (Bld) [#/Vol] 0.02 10*3/uL Normal <0.46 [facility] Comment on above: Order Comment: Speci men Type: BLOOD SPECIMENOrdering Facility: [facility] Address: [address] [place] [address] Performed By: #### 5 7021-8 ####[facility] [id number] [place] [address] [place] Eosinophils/100 WBC (Bld) 1.0 % Normal [facility] Comment on above: Order Comment: Speci men Type: BLOOD SPECIMENOrdering Facility: [facility] Address: [address] [place] [address] Performed By: #### 5 7021-8 ####[facility] [id number] [place] [address] [place] Erythrocyte distribution width (RBC) [Ratio] 17.1 % High 11.5-15.0 [facility] Comment on above: Order Comment: Speci men Type: BLOOD SPECIMENOrdering Facility: [facility] Address: [address] [place] [address] Performed By: #### 5 7021-8 ####[facility] [id number] [place] [address] [place] Hematocrit (Bld) [Volume fraction] 33.5 % Low 39.0-51.0 [facility] Comment on above: Order Comment: Speci men Type: BLOOD SPECIMENOrdering Facility: [facility] Address: [address] [place] [address] Performed By: #### 5 7021-8 ####[facility] [id number] [place] [address] [place] Hemoglobin (Bld) [Mass/Vol] 11.7 g/dL Low 13.0-17.0 [facility] Comment on above: Order Comment: Speci men Type: BLOOD SPECIMENOrdering Facility: [facility] Address: [address] [place] [address] Performed By: #### 5 7021-8 ####[facility] [id number] [place] [address] [place] Lymphocytes (Bld) [#/Vol] 0.23 10*3/uL Low 1.00-4.00 [facility] Comment on above: Order Comment: Speci men Type: BLOOD SPECIMENOrdering Facility: [facility] Address: [address] [place] [address] Performed By: #### 5 7021-8 ####[facility] [id number] [place] [address] [place] Lymphocytes/100 WBC (Bld) 12.0 % Normal [facility] Comment on above: Order Comment: Speci men Type: BLOOD SPECIMENOrdering Facility: [facility] Address: [address] [place] [address] Performed By: #### 5 7021-8 ####[facility] [id number] [place] [address] [place] MCH (RBC) [Entitic mass] 31.8 pg Normal 26.0-34.0 [facility] Comment on above: Order Comment: Speci men Type: BLOOD SPECIMENOrdering Facility: [facility] Address: [address] [place] [address] Performed By: #### 5 7021-8 ####[facility] [id number] [place] [address] [place] MCHC (RBC) [Mass/Vol] 34.9 g/dL Normal 30.5-36.0 [facility] Comment on above: Order Comment: Speci men Type: BLOOD SPECIMENOrdering Facility: [facility] Address: [address] [place] [address] Performed By: #### 5 7021-8 ####[facility] [id number] [place] [address] [place] MCV (RBC) [Entitic vol] 91.0 fL Normal 80.0-100.0 [facility] Comment on above: Order Comment: Speci men Type: BLOOD SPECIMENOrdering Facility: [facility] Address: [address] [place] [address] Performed By: #### 5 7021-8 ####[facility] [id number] [place] [address] [place] Monocytes (Bld) [#/Vol] 0.33 10*3/uL Normal <0.87 [facility] Comment on above: Order Comment: Speci men Type: BLOOD SPECIMENOrdering Facility: [facility] Address: [address] [place] [address] Performed By: #### 5 7021-8 ####[facility] [id number] [place] [address] [place] Monocytes/100 WBC (Bld) 17.0 % Normal [facility] Comment on above: Order Comment: Speci men Type: BLOOD SPECIMENOrdering Facility: [facility] Address: [address] [place] [address] Performed By: #### 5 7021-8 ####[facility] [id number] [place] [address] [place] Neutrophils (Bld) [#/Vol] 1.34 10*3/uL Low 1.45-7.50 [facility] Comment on above: Order Comment: Speci men Type: BLOOD SPECIMENOrdering Facility: [facility] Address: [address] [place] [address] Performed By: #### 5 7021-8 ####[facility] [id number] [place] [address] [place] Neutrophils/100 WBC (Bld) 69.0 % Normal [facility] Comment on above: Order Comment: Speci men Type: BLOOD SPECIMENOrdering Facility: [facility] Address: [address] [place] [address] Performed By: #### 5 7021-8 ####[facility] [id number] [place] [address] [place] Nucleated RBC (Bld) [#/Vol] 10*3/uL Normal <0.01 [facility] Comment on above: Order Comment: Speci men Type: BLOOD SPECIMENOrdering Facility: [facility] Address: [address] [place] [address] Performed By: #### 5 7021-8 ####[facility] [id number] [place] [address] [place] Nucleated RBC/100 WBC (Bld) [Ratio] 0.0 /100 WBC Normal [facility] Comment on above: Order Comment: Speci men Type: BLOOD SPECIMENOrdering Facility: [facility] Address: [address] [place] [address] Performed By: #### 5 7021-8 ####[facility] [id number] [place] [address] [place] Ovalocytes LM Ql (Bld) Few Normal [facility] Comment on above: Order Comment: Speci men Type: BLOOD SPECIMENOrdering Facility: [facility] Address: [address] [place] [address] Performed By: #### 5 7021-8 ####[facility] [id number] [place] [address] [place] Platelet mean volume (Bld) [Entitic vol] 10.6 fL Normal 9.0-12.7 [facility] Comment on above: Order Comment: Speci men Type: BLOOD SPECIMENOrdering Facility: [facility] Address: [address] [place] [address] Performed By: #### 5 7021-8 ####[facility] [id number] [place] [address] [place] Platelets (Bld) [#/Vol] 77 10*3/uL Low 150-400 [facility] Comment on above: Order Comment: Speci men Type: BLOOD SPECIMENOrdering Facility: [facility] Address: [address] [place] [address] Performed By: #### 5 7021-8 ####[facility] [id number] [place] [address] [place] Platelets Estimate (Bld) [#/Vol] Decreased Normal [facility] Comment on above: Order Comment: Speci men Type: BLOOD SPECIMENOrdering Facility: [facility] Address: [address] [place] [address] Performed By: #### 5 7021-8 ####[facility] [id number] [place] [address] [place] Polychromasia LM Ql (Bld) Slight Normal [facility] Comment on above: Order Comment: Speci men Type: BLOOD SPECIMENOrdering Facility: [facility] Address: [address] [place] [address] Performed By: #### 5 7021-8 ####[facility] [id number] [place] [address] [place] RBC (Bld) [#/Vol] 3.68 10*6/uL Low 4.20-6.00 [facility] Comment on above: Order Comment: Speci men Type: BLOOD SPECIMENOrdering Facility: [facility] Address: [address] [place] [address] Performed By: #### 5 7021-8 ####[facility] [id number] [place] [address] [place] RED CELL MORPH Reviewed: see result s of individual morphologies Normal [facility] Comment on above: Order Comment: Speci men Type: BLOOD SPECIMENOrdering Facility: [facility] Address: [address] [place] [address] Performed By: #### 5 7021-8 ####[facility] [id number] [place] [address] [place] WBC (Bld) [#/Vol] 1.94 10*3/uL Low 3.70-11.00 [facility] Comment on above: Order Comment: Speci men Type: BLOOD SPECIMENOrdering Facility: [facility] Address: [address] [place] [address] Result Comment: No c lot detected. Performed By: #### 5 7021-8 ####[facility] [id number] [place] [address] [place] CNOVSPon 04-23-2024 CNOVSP Normal [facility] CRP SerPl-mCncon 04-23-2024 CRP [Mass/Vol] mg/L Normal <0.9 [facility] Comment on above: Order Comment: Speci men Type: BLOOD SPECIMENOrdering Facility: [facility] Address: [address] [place] [address] Performed By: #### 1 988-5, 2276-4 ####[facility] [id number] [place] [address] [place] CRP [Mass/Vol]on 04-23-2024 Interpretation and review of laboratory results Normal [facility] Comprehensive metabolic 2000 panelon 04-23-2024 Albumin [Mass/Vol] 4.1 g/dL 3.9 - 4.9 g/dL [facility] ALP [Catalytic activity/Vol] 137 U/L High 38 - 113 U/L [facility] ALT [Catalytic activity/Vol] 35 U/L 10 - 54 U/L [facility] Anion gap [Moles/Vol] 11 mmol/L 8 - 15 mmol/L [facility] AST [Catalytic activity/Vol] 16 U/L 14 - 40 U/L [facility] Bilirubin [Mass/Vol] 0.4 mg/dL 0.2 - 1 .3 mg/dL [facility] Calcium [Mass/Vol] 9.1 mg/dL 8.5 - 10. 2 mg/dL [facility] Chloride [Moles/Vol] 105 mmol/L 98 - 10 7 mmol/L [facility] CO2 [Moles/Vol] 25 mmol/L 22 - 30 mmol/L [facility] Creatinine [Mass/Vol] 0.89 mg/dL 0.73 - 1.22 mg/dL [facility] GFR/1.73 sq M.predicted among non-blacks MDRD (S/P/Bld) [Vol rate/Area] 94 mL/min/{1.73_m2} - PINF [facility] Comment on above: Estimated Glomerular Filtration Rate [...] 100 mg/dL High 74 - 99 mg/dL [facility] Comment on above: The [place] Di[employer] Association (ADA) provides guidance for [...] Standards of Medical Care in Diabetes 2016, [place] [employer]. Diabetes Care. 2016.39(Suppl 1). Interpretation and review of laboratory results Abnormal [facility] Potassium [Moles/Vol] 4.3 mmol/L 3.7 - 5.1 mmol/L [facility] Protein [Mass/Vol] 6.5 g/dL 6.3 - 8.0 g/dL [facility] Sodium [Moles/Vol] 141 mmol/L 136 - 144 mmol/L [facility] Urea nitrogen [Mass/Vol] 22 mg/dL 9 - 24 mg/dL [facility] Albumin [Mass/Vol] 4.1 g/dL Normal 3.9-4.9 [facility] Comment on above: Order Comment: Dottyi razia Type: BLOOD SPECIMENOrdering Facility: [facility] Address: [address] [place] [address] Performed By: #### 2 432-8, ####[facility] [id number] [place] [address] [place] ALP [Catalytic activity/Vol] 137 U/L High 38-113 [facility] Comment on above: Order Comment: Dottyi razia Type: BLOOD SPECIMENOrdering Facility: [facility] Address: [address] [place] [address] Performed By: #### 2 4323-8, ####[facility] [id number] [place] [address] [place] ALT [Catalytic activity/Vol] 35 U/L Normal 10-54 [facility] Comment on above: Order Comment: Dottyi men Type: BLOOD SPECIMENOrdering Facility: [facility] Address: [address] [place] [address] Performed By: #### 2 4323-8, ####[facility] [id number] [place] [address] [place] Anion gap [Moles/Vol] 11 mmol/L Normal 8-15 [facility] Comment on above: Order Comment: Speci men Type: BLOOD SPECIMENOrdering Facility: [facility] Address: [address] [place] [address] Performed By: #### 2 4323-8, ####[facility] [id number] [place] [address] [place] AST [Catalytic activity/Vol] 16 U/L Normal 14-40 [facility] Comment on above: Order Comment: Speci men Type: BLOOD SPECIMENOrdering Facility: [facility] Address: [address] [place] [address] Performed By: #### 2 4323-8, ####[facility] [id number] [place] [address] [place] Bilirubin [Mass/Vol] 0.4 mg/dL Normal 0.2-1.3 [facility] Comment on above: Order Comment: Speci men Type: BLOOD SPECIMENOrdering Facility: [facility] Address: [address] [place] [address] Performed By: #### 2 4323-8, ####[facility] [id number] [place] [address] [place] Calcium [Mass/Vol] 9.1 mg/dL Normal 8.5-10.2 [facility] Comment on above: Order Comment: Speci men Type: BLOOD SPECIMENOrdering Facility: [facility] Address: [address] [place] [address] Performed By: #### 2 4323-8, ####[facility] [id number] [place] [address] [place] Chloride [Moles/Vol] 105 mmol/L Normal 98-107 [facility] Comment on above: Order Comment: Speci men Type: BLOOD SPECIMENOrdering Facility: [facility] Address: [address] [place] [address] Performed By: #### 2 4323-8, 28312-9 ####[facility] [id number] [place] [address] [place] CO2 [Moles/Vol] 25 mmol/L Normal 22-30 [facility] Comment on above: Order Comment: Speci men Type: BLOOD SPECIMENOrdering Facility: [facility] Address: [address] [place] [address] Performed By: #### 2 4323-8, 01104-5 ####[facility] [id number] [address] [place] Creatinine [Mass/Vol] 0.89 mg/dL Normal 0.73-1.22 [facility] Comment on above: Order Comment: Speci men Type: BLOOD SPECIMENOrdering Facility: [facility] Address: [address] [place] [address] Performed By: #### 2 4323-8, 83849-9 ####[facility] [id number] [address] [place] OF [facility] Creatinine and Glomerular filtration rate.predicted panel (S/P/Bld) 94 mL/min/1.73m??? Normal >=60 [facility] Comment on above: Order Comment: Speci men Type: BLOOD SPECIMENOrdering Facility: [facility] Address: [address] [place] [address] Result Comment: Carol mated Glomerular Filtration Rate [...] actual GFR. Performed By: #### 2 4323-8, 41393-6 ####[facility] [id number] [place] [address] [place] Glucose [Mass/Vol] 100 mg/dL High 74-99 [facility] Comment on above: Order Comment: Speci men Type: BLOOD SPECIMENOrdering Facility: [facility] Address: [address] [place] [address] Result Comment: The [place] Diabetes Association (ADA) provides guidance for cutoff [...] Standards of Medical Care in Diabetes 2016, [place] [employer]. Diabetes Care. 2016.39(Suppl 1). Performed By: #### 2 4323-8, ####[facility] [id number] [place] [address] [place] Potassium [Moles/Vol] 4.3 mmol/L Normal 3.7-5.1 [facility] Comment on above: Order Comment: Speci men Type: BLOOD SPECIMENOrdering Facility: [facility] Address: [address] [place] [address] Performed By: #### 2 4323-8, ####[facility] [id number] [place] [address] [place] Protein [Mass/Vol] 6.5 g/dL Normal 6.3-8.0 [facility] Comment on above: Order Comment: Speci men Type: BLOOD SPECIMENOrdering Facility: [facility] Address: [address] [place] [address] Performed By: #### 2 4323-8, ####[facility] [id number] [place] [address] [place] Sodium [Moles/Vol] 141 mmol/L Normal 136-144 [facility] Comment on above: Order Comment: Speci men Type: BLOOD SPECIMENOrdering Facility: [facility] Address: [address] [place] [address] Performed By: #### 2 4323-8, 56908-2 ####[facility] [id number] [place] [address] [place] Urea nitrogen [Mass/Vol] 22 mg/dL Normal 9-24 [facility] Comment on above: Order Comment: Speci men Type: BLOOD SPECIMENOrdering Facility: [facility] Address: [address] [place] [address] Performed By: #### 2 4323-8, 01824-9 ####[facility] [id number] [place] [address] [place] FERRITINon 04-23-2024 Ferritin [Mass/Vol] 589.0 ng/mL High 30.3 - 565.7 ng/mL [facility] Ferritin SerPl-mCncon 2023 Ferritin [Mass/Vol] 589.0 ng/mL High 30.3-565.7 [facility] Comment on above: Order Comment: Speci men Type: BLOOD SPECIMENOrdering Facility: [facility] Address: [address] [place] [address] Performed By: #### 1 988-5, 2276-4 ####[facility] [id number] [place] [address] [place] Ferritin [Mass/Vol]on 2023 Interpretation and review of laboratory results Abnormal [facility] LACTATE DEHYDROGENASEon - LDH [Catalytic activity/Vol] 150 U/L 135 - 225 U/L [facility] LDH SerPl-cCncon 04-23-2024 LDH [Catalytic activity/Vol] 150 U/L Normal 135-225 [facility] Comment on above: Order Comment: Speci men Type: BLOOD SPECIMENOrdering Facility: [facility] Address: [address] [place] [address] Performed By: #### 2 532-0 ####[facility] [id number] [place] [address] [place] LDH [Catalytic activity/Vol] on 04-23-2024 Interpretation and review of laboratory results Normal [facility] MAGNESIUMon 04-23-2024 Magnesium [Mass/Vol] 2.1 mg/dL 1.7 - 2 .3 mg/dL [facility] Magnesium SerPl-mCncon 04-23 Magnesium [Mass/Vol] 2.1 mg/dL Normal 1.7-2.3 [facility] Comment on above: Order Comment: Speci men Type: BLOOD SPECIMENOrdering Facility: [facility] Address: [address] [place] [address] Performed By: #### 2 4323-8, 85949-2 ####[facility] [id number] [place] [address] [place] Magnesium [Mass/Vol]on 04-23 Interpretation and review of laboratory results Normal [facility] No Panel Informationon 04-23 [facility] RUBEOLA (MEASLES)IGGon 04-23 MEASLES IGG AB, QUAL Positive Normal Positive [facility] Comment on above: Order Comment: Speci men Type: BLOOD SPECIMENOrdering Facility: [facility] Address: [address] [place] [address] Result Comment: The result suggests recent or past exposure to Measles virus or Measles vaccination. The current test does not detect neutralizing antibodies. Positive result may also be seen due to presence of passively-transferred antibodies. Please correlate with patient's history. Performed By: #### V ZVG2, MEASLG ####[facility] LABCLIA [id number] [place] [address] [place] TYPE + SCREENon 04-23-2024 ABO group Nom (Bld) B [facility] Blood group antibody screen Ql Negative [facility] HIstorical Ab Scr Status Negative [facility] Rh Nom (Bld) Negative [facility] Type and Screen Expiration 04/26/2024 23:59 [facility] ABO B Normal [facility] Comment on above: Order Comment: Speci men Type: BLOOD SPECIMENOrdering Facility: [facility] Address: [address] [place] [address] Performed By: #### T SCR ####[facility] BANKCLIA [id number] [place] [address] [place] HISTORICAL AB SCR STATUS Negative Normal [facility] Comment on above: Order Comment: Speci men Type: BLOOD SPECIMENOrdering Facility: [facility] Address: [address] [place] [address] Performed By: #### T SCR ####[facility]LO[facility] BANKCLIA [id number] [place] [address] [place] Rh Nom (Bld) Negative Normal [facility] Comment on above: Order Comment: Speci men Type: BLOOD SPECIMENOrdering Facility: [facility] Address: [address] [place] [address] Performed By: #### T SCR ####[facility]LO[facility] BANKCLIA [id number] [place] [address] [place] TYPE AND SCREEN EXPIRATION 04/26/2024 23:59 Normal [facility] Comment on above: Order Comment: Speci men Type: BLOOD SPECIMENOrdering Facility: [facility] Address: [address] [place] [address] Performed By: #### T SCR ####[facility]LO[facility] BANKCLIA [id number] [place] [address] [place] VARICELLA ZOSTER IGGon 04-23 VARICELLA ZOSTER IGG, QUAL Positive Normal Positive [facility] Comment on above: Order Comment: Speci men Type: BLOOD SPECIMENOrdering Facility: [facility] Address: [address] [place] [address] Result Comment: The result suggests recent or past exposure to Varicella-Zoster virus or chickenpox vaccination or zoster vaccination. Positive result may also be seen due to presence of passively-transferred antibodies. Please correlate with patient's history. Performed By: #### V ZVG2, MEASLG ####[facility] LABCLIA [id number] [place] [address] [place] CASE MANAGEMon 04-17-2024 CASE MANAGEM Normal [facility] CBC panel Auto (Bld)on 04-17 Erythrocyte distribution width (RBC) [Ratio] 15.4 % High 11.5-15.0 [facility] Comment on above: Order Comment: Speci men Type: BLOOD SPECIMENOrdering Facility: [facility] Address: [address] [place] [address] Performed By: #### 5 8410-2 ####[facility] LABCLIA [id number] [address] [place] Hematocrit (Bld) [Volume fraction] 31.4 % Low 39.0-51.0 [facility] Comment on above: Order Comment: Speci men Type: BLOOD SPECIMENOrdering Facility: [facility] Address: [address] [place] [address] Performed By: #### 5 8410-2 ####[facility] LABCLIA [id number] [place] [address] [place] Hemoglobin (Bld) [Mass/Vol] 10.9 g/dL Low 13.0-17.0 [facility] Comment on above: Order Comment: Speci men Type: BLOOD SPECIMENOrdering Facility: [facility] Address: [address] [place] [address] Performed By: #### 5 8410-2 ####[facility] LABCLIA [id number] [place] [address] [place] MCH (RBC) [Entitic mass] 31.2 pg Normal 26.0-34.0 [facility] Comment on above: Order Comment: Speci men Type: BLOOD SPECIMENOrdering Facility: [facility] Address: [address] [place] [address] Performed By: #### 5 8410-2 ####[facility] LABIA [id number] [place] [address] [place] MCHC (RBC) [Mass/Vol] 34.7 g/dL Normal 30.5-36.0 [facility] Comment on above: Order Comment: Speci men Type: BLOOD SPECIMENOrdering Facility: [facility] Address: [address] [place] [address] Performed By: #### 5 8410-2 ####[facility] [id number] [place] [address] [place] MCV (RBC) [Entitic vol] 90.0 fL Normal 80.0-100.0 [facility] Comment on above: Order Comment: Speci men Type: BLOOD SPECIMENOrdering Facility: [facility] Address: [address] [place] [address] Performed By: #### 5 8410-2 ####[facility] LABIA [id number] [place] [address] [place] Nucleated RBC (Bld) [#/Vol] 10*3/uL Normal <0.01 [facility] Comment on above: Order Comment: Speci men Type: BLOOD SPECIMENOrdering Facility: [facility] Address: [address] [place] [address] Performed By: #### 5 8410-2 ####[facility] [id number] [place] [address] [place] Platelet mean volume (Bld) [Entitic vol] 11.5 fL Normal 9.0-12.7 [facility] Comment on above: Order Comment: Speci men Type: BLOOD SPECIMENOrdering Facility: [facility] Address: [address] [place] [address] Performed By: #### 5 8410-2 ####[facility] LABCLIA [id number] [place] [address] [place] Platelets (Bld) [#/Vol] 59 10*3/uL Low 150-400 [facility] Comment on above: Order Comment: Speci men Type: BLOOD SPECIMENOrdering Facility: [facility] Address: [address] [place] [address] Result Comment: Resu lts checked and verified.No clot detected. Performed By: #### 5 8410-2 ####[facility] LABCLIA [id number] [place] [place] [address] [place] RBC (Bld) [#/Vol] 3.49 10*6/uL Low 4.20-6.00 [facility] Comment on above: Order Comment: Speci men Type: BLOOD SPECIMENOrdering Facility: [facility] Address: [address] [place] [address] Performed By: #### 5 8410-2 ####[facility] LABCLIA [id number] [place] [address] [place] WBC (Bld) [#/Vol] 1.87 10*3/uL Low 3.70-11.00 [facility] Comment on above: Order Comment: Speci men Type: BLOOD SPECIMENOrdering Facility: [facility] Address: [address] [place] [address] Result Comment: No c lot detected. Performed By: #### 5 8410-2 ####[facility] LABCLIA [id number] [place] [address] [place] CNCOon 04-17-2024 CNCO Letter Text Normal [facility] CNDSon 04-17-2024 CNDS Normal [facility] Comprehensive metabolic 2000 panelon 04-17-2024 Albumin [Mass/Vol] 3.7 g/dL Low 3.9-4.9 [facility] Comment on above: Order Comment: Speci men Type: BLOOD SPECIMENOrdering Facility: [facility] Address: [address] [place] [address] Performed By: #### 2 4323-8, , 2776-11 ####[facility] LABCLIA [id number] [place] [address] [place] ALP [Catalytic activity/Vol] 107 U/L Normal 38-113 [facility] Comment on above: Order Comment: Speci men Type: BLOOD SPECIMENOrdering Facility: [facility] Address: [address] [place] [address] Performed By: #### 2 4323-8, , 2776-11 ####[facility] LABIA [id number] [place] [address] [place] ALT [Catalytic activity/Vol] 53 U/L Normal 10-54 [facility] Comment on above: Order Comment: Speci men Type: BLOOD SPECIMENOrdering Facility: [facility] Address: [address] [place] [address] Performed By: #### 2 4323-8, , 2776-11 ####[facility] LABIA [id number] [place] [address] [place] Anion gap [Moles/Vol] 10 mmol/L Normal 8-15 [facility] Comment on above: Order Comment: Speci men Type: BLOOD SPECIMENOrdering Facility: [facility] Address: [address] [place] [address] Performed By: #### 2 4323-8, , 2776-11 ####[facility] LABIA [id number] [place] [address] [place] AST [Catalytic activity/Vol] 28 U/L Normal 14-40 [facility] Comment on above: Order Comment: Speci men Type: BLOOD SPECIMENOrdering Facility: [facility] Address: [address] [place] [id number] Performed By: #### 2 4323-8, 88148-6, 2776-11 ####[facility] LABCLIA [id number] [place] [address] [place] Bilirubin [Mass/Vol] 0.4 mg/dL Normal 0.2-1.3 [facility] Comment on above: Order Comment: Speci men Type: BLOOD SPECIMENOrdering Facility: [facility] Address: [address] [place] [address] Performed By: #### 2 4323-8, , 2776-11 ####[facility] LABCLIA [id number] [place] [address] [place] Calcium [Mass/Vol] 9.0 mg/dL Normal 8.5-10.2 [facility] Comment on above: Order Comment: Speci men Type: BLOOD SPECIMENOrdering Facility: [facility] Address: [address] [place] [address] Performed By: #### 2 4323-8, , 2776-11 ####[facility] LABCLIA [id number] [place] [address] [place] Chloride [Moles/Vol] 109 mmol/L High 98-107 [facility] Comment on above: Order Comment: Speci men Type: BLOOD SPECIMENOrdering Facility: [facility] Address: [address] [place] [address] Performed By: #### 2 4323-8, , 2776-11 ####[facility] LABCLIA [id number] [place] [address] [place] CO2 [Moles/Vol] 22 mmol/L Normal 22-30 [facility] Comment on above: Order Comment: Speci men Type: BLOOD SPECIMENOrdering Facility: [facility] Address: [address] [place], [place] [address] Performed By: #### 2 4323-8, , 2776-11 ####[facility] LABCLIA [id number] [address] [address] [place] Creatinine [Mass/Vol] 0.93 mg/dL Normal 0.73-1.22 [facility] Comment on above: Order Comment: Speci men Type: BLOOD SPECIMENOrdering Facility: [facility] Address: [address] [place] [address] Performed By: #### 2 4323-8, , 2776-11 ####[facility] LABIA [id number] [place] [address] [place] Creatinine and Glomerular filtration rate.predicted panel (S/P/Bld) 90 mL/min/1.73m??? Normal >=60 [facility] Comment on above: Order Comment: Sara men Type: BLOOD SPECIMENOrdering Facility: [facility] Address: [address] [place] [address] Result Comment: Carol mated Glomerular Filtration Rate [...] Performed By: #### 2 4323-8, , 2776-11 ####[facility] LABIA [id number] [address] [address] [place] Glucose [Mass/Vol] 93 mg/dL Normal 74-99 [facility] Comment on above: Order Comment: Speci men Type: BLOOD SPECIMENOrdering Facility: [facility] Address: [address] [place] [address] Result Comment: The [place] [employer] (ADA) provides guidance for cutoff [...] Standards of Medical Care in Diabetes 2016, [employer] [employer]. Diabetes Care. 2016.39(Suppl 1). Performed By: #### 2 4323-8, , 2776-11 ####[facility] LABCLIA [id number] [address] [address] [place] Potassium [Moles/Vol] 3.9 mmol/L Normal 3.7-5.1 [facility] Comment on above: Order Comment: Speci men Type: BLOOD SPECIMENOrdering Facility: [facility] Address: [address] [place] [address] Performed By: #### 2 4323-8, , 2776-11 ####[facility] LABCLIA [id number] [place] [id number] [place] Protein [Mass/Vol] 5.6 g/dL Low 6.3-8.0 [facility] Comment on above: Order Comment: Speci men Type: BLOOD SPECIMENOrdering Facility: [facility] Address: [address] [place] [address] Performed By: #### 2 4323-8, , 2776-11 ####[facility] LABCLIA [id number] [address] [address] [place] Sodium [Moles/Vol] 141 mmol/L Normal 136-144 [facility] Comment on above: Order Comment: Speci men Type: BLOOD SPECIMENOrdering Facility: [facility] Address: [address] [place] [address] Performed By: #### 2 4323-8, , 2776-11 ####[facility] LABCLIA [id number] [address] [address] [place] Urea nitrogen [Mass/Vol] 17 mg/dL Normal 9-24 [facility] Comment on above: Order Comment: Speci men Type: BLOOD SPECIMENOrdering Facility: [facility] Address: [address] [place] [address] Performed By: #### 2 4323-8, 01934-5, 2777-1 ####[facility] LABCLIA [id number] [address] [address] [place] Magnesium SerPl-mCncon 04-17 Magnesium [Mass/Vol] 2.4 mg/dL High 1.7-2.3 [facility] Comment on above: Order Comment: Speci men Type: BLOOD SPECIMENOrdering Facility: [facility] Address: [address] [place] [address] Performed By: #### 2 4323-8, 99566-6, 27771 ####[facility] LABCLIA [id number] [place] [id number] [place] NURSING PROGon 04-17-2024 NURSING PROG Normal [facility] Phosphate SerPl-mCncon 04-17 Phosphate [Mass/Vol] 2.7 mg/dL Normal 2.7-4.8 [facility] Comment on above: Order Comment: Speci men Type: BLOOD SPECIMENOrdering Facility: [facility] Address: [address] [place] [address] Performed By: #### 2 4323-8, 58215-3, 2777-1 ####[facility] LABIA [id number] [place] [id number] [place] CBC panel Auto (Bld)on 04-16 Erythrocyte distribution width (RBC) [Ratio] 14.5 % Normal 11.5-15.0 [facility] Comment on above: Order Comment: Speci men Type: BLOOD SPECIMENOrdering Facility: [facility] Address: [facility] [place] [address] Performed By: #### 5 8410-2 ####[facility] LABCLIA [id number] [place] [address] [place] Hematocrit (Bld) [Volume fraction] 31.5 % Low 39.0-51.0 [facility] Comment on above: Order Comment: Speci men Type: BLOOD SPECIMENOrdering Facility: [facility] Address: [address] [place] [address] Performed By: #### 5 8410-2 ####[facility] LABCLIA [id number] [place] [address] [place] Hemoglobin (Bld) [Mass/Vol] 11.2 g/dL Low 13.0-17.0 [facility] Comment on above: Order Comment: Speci men Type: BLOOD SPECIMENOrdering Facility: [facility] Address: [address] [place] [address] Performed By: #### 5 8410-2 ####[facility] LABCLIA [id number] [place] [address] [place] MCH (RBC) [Entitic mass] 31.5 pg Normal 26.0-34.0 [facility] Comment on above: Order Comment: Speci men Type: BLOOD SPECIMENOrdering Facility: [facility] Address: [address] [place] [address] Performed By: #### 5 8410-2 ####[facility] LABCLIA [id number] [place] [address] [place] MCHC (RBC) [Mass/Vol] 35.6 g/dL Normal 30.5-36.0 [facility] Comment on above: Order Comment: Speci men Type: BLOOD SPECIMENOrdering Facility: [facility] Address: [address] [place] [address] Performed By: #### 5 8410-2 ####[facility] LABCLIA [id number] [place] [address] [place] MCV (RBC) [Entitic vol] 88.5 fL Normal 80.0-100.0 [facility] Comment on above: Order Comment: Speci men Type: BLOOD SPECIMENOrdering Facility: [facility] Address: [address] [place] [address] Performed By: #### 5 8410-2 ####[facility] [id number] [place] [address] [place] Nucleated RBC (Bld) [#/Vol] 10*3/uL Normal <0.01 [facility] Comment on above: Order Comment: Speci men Type: BLOOD SPECIMENOrdering Facility: [facility] Address: [address] [place] [address] Performed By: #### 5 8410-2 ####[facility] [id number] [place] [address] [place] Platelet mean volume (Bld) [Entitic vol] 11.7 fL Normal 9.0-12.7 [facility] Comment on above: Order Comment: Speci men Type: BLOOD SPECIMENOrdering Facility: [facility] Address: [address] [place] [address] Performed By: #### 5 8410-2 ####[facility] [id number] [place] [address] [place] Platelets (Bld) [#/Vol] 49 10*3/uL Low 150-400 [facility] Comment on above: Order Comment: Speci men Type: BLOOD SPECIMENOrdering Facility: [facility] Address: [address] [place] [address] Result Comment: Resu lts checked and verified.No clot detected. Performed By: #### 5 8410-2 ####[facility] [id number] [place] [address] [place] RBC (Bld) [#/Vol] 3.56 10*6/uL Low 4.20-6.00 [facility] Comment on above: Order Comment: Speci men Type: BLOOD SPECIMENOrdering Facility: [facility] Address: [address] [place] [address] Performed By: #### 5 8410-2 ####[facility] LABCLIA [id number] [place] [address] [place] WBC (Bld) [#/Vol] 1.44 10*3/uL Low 3.70-11.00 [facility] Comment on above: Order Comment: Speci men Type: BLOOD SPECIMENOrdering Facility: [facility] Address: [address] [place] [address] Result Comment: No c lot detected. Performed By: #### 5 8410-2 ####[facility] LABCLIA [id number] [place] [address] [place] Comprehensive metabolic 2000 panelon 04-16-2024 Albumin [Mass/Vol] 3.6 g/dL Low 3.9-4.9 [facility] Comment on above: Order Comment: Speci men Type: BLOOD SPECIMENOrdering Facility: [facility] Address: [address] [place] [address] Performed By: #### 2 4323-8, 96717-0, 2777-1 ####[facility] LABCLIA [id number] [place] [address] [place] ALP [Catalytic activity/Vol] 116 U/L High 38-113 [facility] Comment on above: Order Comment: Speci men Type: BLOOD SPECIMENOrdering Facility: [facility] Address: [address] [place] [address] Performed By: #### 2 4323-8, 40141-4, 2777-1 ####[facility] LABCLIA [id number] [place] [address] [place] ALT [Catalytic activity/Vol] 53 U/L Normal 10-54 [facility] Comment on above: Order Comment: Speci men Type: BLOOD SPECIMENOrdering Facility: [facility] Address: [address] [place] [address] Performed By: #### 2 4323-8, , 2776-11 ####[facility] LABCLIA [id number] [place] [address] [place] Anion gap [Moles/Vol] 9 mmol/L Normal 8-15 [facility] Comment on above: Order Comment: Speci men Type: BLOOD SPECIMENOrdering Facility: [facility] Address: [address] [place] [address] Performed By: #### 2 4323-8, , 2776-11 ####[facility] LABCLIA [id number] [place] [address] [place] AST [Catalytic activity/Vol] 28 U/L Normal 14-40 [facility] Comment on above: Order Comment: Speci men Type: BLOOD SPECIMENOrdering Facility: [facility] Address: [address] [place] [address] Performed By: #### 2 4323-8, , 2776-11 ####[facility] LABCLIA [id number] [place] [address] [place] Bilirubin [Mass/Vol] 0.5 mg/dL Normal 0.2-1.3 [facility] Comment on above: Order Comment: Speci men Type: BLOOD SPECIMENOrdering Facility: [facility] Address: [address] [place], [place] [address] Performed By: #### 2 4323-8, , 2776-11 ####[facility] LABCLIA [id number] [place] [id number] [place] Calcium [Mass/Vol] 9.2 mg/dL Normal 8.5-10.2 [facility] Comment on above: Order Comment: Speci men Type: BLOOD SPECIMENOrdering Facility: [facility] Address: [address] [place] [address] Performed By: #### 2 4323-8, , 2776-11 ####[facility] LABCLIA [id number] [place] [id number] [place] Chloride [Moles/Vol] 109 mmol/L High 98-107 [facility] Comment on above: Order Comment: Speci men Type: BLOOD SPECIMENOrdering Facility: [facility] Address: [address] [place] [address] Performed By: #### 2 4323-8, , 2776-11 ####[facility] LABCLIA [id number] [place] [address] [place] CO2 [Moles/Vol] 23 mmol/L Normal 22-30 [facility] Comment on above: Order Comment: Speci men Type: BLOOD SPECIMENOrdering Facility: [facility] Address: [address] [place] [address] Performed By: #### 2 4323-8, , 2776-11 ####[facility] LABCLIA [id number] [place] [address] [place] Creatinine [Mass/Vol] 0.83 mg/dL Normal 0.73-1.22 [facility] Comment on above: Order Comment: Speci men Type: BLOOD SPECIMENOrdering Facility: [facility] Address: [address] [place] [address] Performed By: #### 2 4323-8, , 2776-11 ####[facility] LABCLIA [id number] [place] [address] [place] Creatinine and Glomerular filtration rate.predicted panel (S/P/Bld) 96 mL/min/1.73m??? Normal >=60 [facility] Comment on above: Order Comment: Speci men Type: BLOOD SPECIMENOrdering Facility: [facility] Address: [address] [place] [address] Result Comment: Carol mated Glomerular Filtration Rate [...] actual GFR. Performed By: #### 2 4323-8, 74880-3, 2776-11 ####[facility] LABCLIA [id number] [place] [address] [place] Glucose [Mass/Vol] 130 mg/dL High 74-99 [facility] Comment on above: Order Comment: Sara randle Type: BLOOD SPECIMENOrdering Facility: [facility] Address: [address] [place] [address] Result Comment: The [place] [employer] (ADA) provides guidance for cutoff [...] Standards of Medical Care in Diabetes 2016, [place] [employer]. Diabetes Care. 2016.39(Suppl 1). Performed By: #### 2 4323-8, , 2776-11 ####[facility] LABIA [id number] [place] [id number] [place] Potassium [Moles/Vol] 4.4 mmol/L Normal 3.7-5.1 [facility] Comment on above: Order Comment: Sara randle Type: BLOOD SPECIMENOrdering Facility: [facility] Address: [address] [address] Performed By: #### 2 4323-8, 02912-7, 277-1 ####[facility] LABIA [id number] [address] [address] [place] Protein [Mass/Vol] 5.8 g/dL Low 6.3-8.0 [facility] Comment on above: Order Comment: Speci men Type: BLOOD SPECIMENOrdering Facility: [facility] Address: [address] [place] [address] Performed By: #### 2 4323-8, 45641-8, 2776- ####[facility] LABIA [id number] [place] [address] [place] Sodium [Moles/Vol] 141 mmol/L Normal 136-144 [facility] Comment on above: Order Comment: Speci men Type: BLOOD SPECIMENOrdering Facility: [facility] Address: [address] [place] [address] Performed By: #### 2 4323-8, 49899-8, 2776-11 ####[facility] LABIA [id number] [place] [id number] [place] Urea nitrogen [Mass/Vol] 16 mg/dL Normal 9-24 [facility] Comment on above: Order Comment: Speci men Type: BLOOD SPECIMENOrdering Facility: [facility] Address: [address] [place] [address] Performed By: #### 2 4323-8, 02624-8, 2777-1 ####[facility] [id number] [place] [id number] [place] Magnesium SerPl-mCncon 04-16 Magnesium [Mass/Vol] 2.4 mg/dL High 1.7-2.3 [facility] Comment on above: Order Comment: Speci men Type: BLOOD SPECIMENOrdering Facility: [facility] Address: [address] [place] [address] Performed By: #### 2 4323-8, 20654-8, 2777-1 ####[facility] LABCLIA [id number] [place] [id number] [place] Phosphate SerPl-mCncon 04-16 Phosphate [Mass/Vol] 3.4 mg/dL Normal 2.7-4.8 [facility] Comment on above: Order Comment: Speci men Type: BLOOD SPECIMENOrdering Facility: [facility] Address: [address] [place] [address] Performed By: #### 2 4323-8, 50654-6, 2777-1 ####[facility] LABCLIA [id number] [place] [address] [place] CASE MGT INIT ASSESon 2023 CASE MGT INIT ASSES Normal [facility] CBC panel Auto (Bld)on 04-15 Erythrocyte distribution width (RBC) [Ratio] 14.2 % Normal 11.5-15.0 [facility] Comment on above: Order Comment: Speci men Type: BLOOD SPECIMENOrdering Facility: [facility] Address: [address] [place] [address] Performed By: #### 5 8410-2 ####[facility] LABIA [id number] [place] [address] [place] Hematocrit (Bld) [Volume fraction] 32.5 % Low 39.0-51.0 [facility] Comment on above: Order Comment: Speci men Type: BLOOD SPECIMENOrdering Facility: [facility] Address: [address] [place] [address] Performed By: #### 5 8410-2 ####[facility] LABCLIA [id number] [place] [address] [place] Hemoglobin (Bld) [Mass/Vol] 11.2 g/dL Low 13.0-17.0 [facility] Comment on above: Order Comment: Speci men Type: BLOOD SPECIMENOrdering Facility: [facility] Address: [address] [place] [address] Performed By: #### 5 8410-2 ####[facility] [id number] [place] [address] [place] MCH (RBC) [Entitic mass] 30.9 pg Normal 26.0-34.0 [facility] Comment on above: Order Comment: Speci men Type: BLOOD SPECIMENOrdering Facility: [facility] Address: [address] [place] [address] Performed By: #### 5 8410-2 ####[facility] [id number] [place] [address] [place] MCHC (RBC) [Mass/Vol] 34.5 g/dL Normal 30.5-36.0 [facility] Comment on above: Order Comment: Speci men Type: BLOOD SPECIMENOrdering Facility: [facility] Address: [address] [place] [address] Performed By: #### 5 8410-2 ####[facility] [id number] [place] [address] [place] MCV (RBC) [Entitic vol] 89.8 fL Normal 80.0-100.0 [facility] Comment on above: Order Comment: Speci men Type: BLOOD SPECIMENOrdering Facility: [facility] Address: [address] [place] [address] Performed By: #### 5 8410-2 ####[facility] [id number] [place] [address] [place] Nucleated RBC (Bld) [#/Vol] 10*3/uL Normal <0.01 [facility] Comment on above: Order Comment: Speci men Type: BLOOD SPECIMENOrdering Facility: [facility] Address: [address] [place] [address] Performed By: #### 5 8410-2 ####[facility] LABCLIA [id number] [place] [address] [place] Platelet mean volume (Bld) [Entitic vol] 12.5 fL Normal 9.0-12.7 [facility] Comment on above: Order Comment: Speci men Type: BLOOD SPECIMENOrdering Facility: [facility] Address: [address] [place] [address] Performed By: #### 5 8410-2 ####[facility] LABIA [id number] [place] [address] [place] Platelets (Bld) [#/Vol] 46 10*3/uL Low 150-400 [facility] Comment on above: Order Comment: Speci men Type: BLOOD SPECIMENOrdering Facility: [facility] Address: [address] [place] [address] Performed By: #### 5 8410-2 ####[facility] LABIA [id number] [place] [address] [place] RBC (Bld) [#/Vol] 3.62 10*6/uL Low 4.20-6.00 [facility] Comment on above: Order Comment: Speci men Type: BLOOD SPECIMENOrdering Facility: [facility] Address: [address] [place] [address] Performed By: #### 5 8410-2 ####[facility] LABIA [id number] [place] [address] [place] WBC (Bld) [#/Vol] 0.64 10*3/uL Low 3.70-11.00 [facility] Comment on above: Order Comment: Speci men Type: BLOOD SPECIMENOrdering Facility: [facility] Address: [address] [place] [address] Result Comment: No c lot detected. Performed By: #### 5 8410-2 ####[facility] LABIA [id number] [address] [address] [place] CT BRAIN WO IVCONon 04-15-20 CT BRAIN WO IVCON Normal [facility] metabolic 2000 panelon 04-15-2024 Albumin [Mass/Vol] 3.6 g/dL Low 3.9-4.9 [facility] Comment on above: Order Comment: Speci men Type: BLOOD SPECIMENOrdering Facility: [facility] Address: [address] [place] [address] Performed By: #### 2 777-1, 56201-0, ####[facility] LABCLIA [id number] [place] [address] [place] ALP [Catalytic activity/Vol] 119 U/L High 38-113 [facility] Comment on above: Order Comment: Speci men Type: BLOOD SPECIMENOrdering Facility: [facility] Address: [address] [place] [address] Performed By: #### 2 777-1, , ####[facility] LABCLIA [id number] [place] [address] [place] ALT [Catalytic activity/Vol] 48 U/L Normal 10-54 [facility] Comment on above: Order Comment: Speci men Type: BLOOD SPECIMENOrdering Facility: [facility] Address: [address] [place] [address] Performed By: #### 2 777-1, , ####[facility] LABCLIA [id number] [address] [address] [place] Anion gap [Moles/Vol] 12 mmol/L Normal 8-15 [facility] Comment on above: Order Comment: Speci men Type: BLOOD SPECIMENOrdering Facility: [facility] Address: [address] [place] [address] Performed By: #### 2 777-1, 42268-3, ####[facility] LABCLIA [id number] [place] [address] [place] AST [Catalytic activity/Vol] 38 U/L Normal 14-40 [facility] Comment on above: Order Comment: Speci men Type: BLOOD SPECIMENOrdering Facility: [facility] Address: [address] [place] [address] Performed By: #### 2 777-1, 43237-7, ####[facility] LABCLIA [id number] [place] [address] [place] Bilirubin [Mass/Vol] 0.6 mg/dL Normal 0.2-1.3 [facility] Comment on above: Order Comment: Speci men Type: BLOOD SPECIMENOrdering Facility: [facility] Address: [address] [place] [address] Performed By: #### 2 777-1, , ####[facility] LABCLIA [id number] [place] [address] [place] Calcium [Mass/Vol] 9.0 mg/dL Normal 8.5-10.2 [facility] Comment on above: Order Comment: Speci men Type: BLOOD SPECIMENOrdering Facility: [facility] Address: [address] [place] [address] Performed By: #### 2 777-1, , ####[facility] LABCLIA [id number] [place] [address] [place] Chloride [Moles/Vol] 105 mmol/L Normal 98-107 [facility] Comment on above: Order Comment: Speci men Type: BLOOD SPECIMENOrdering Facility: [facility] Address: [address] [place] [address] Performed By: #### 2 777-1, 34680-1, ####[facility] LABCLIA [id number] [place] [id number] [place] CO2 [Moles/Vol] 20 mmol/L Low 22-30 [facility] Comment on above: Order Comment: Speci men Type: BLOOD SPECIMENOrdering Facility: [facility] Address: [address] [place] [address] Performed By: #### 2 777-1, 06784-8, ####[facility] LABCLIA [id number] [place] [address] [place] Creatinine [Mass/Vol] 0.85 mg/dL Normal 0.73-1.22 [facility] Comment on above: Order Comment: Speci men Type: BLOOD SPECIMENOrdering Facility: [facility] Address: [address] [place] [address] Performed By: #### 2 777-1, , ####[facility] LABCLIA [id number] [place] [address] [place] Creatinine and Glomerular filtration rate.predicted panel (S/P/Bld) 95 mL/min/1.73m??? Normal >=60 [facility] Comment on above: Order Comment: Speci men Type: BLOOD SPECIMENOrdering Facility: [facility] Address: [address] [place] [address] Result Comment: Carol mated Glomerular Filtration Rate [...] GFR. Performed By: #### 2 777-1, , ####[facility] LABCLIA [id number] [place] [id number] [place] Glucose [Mass/Vol] 115 mg/dL High 74-99 [facility] Comment on above: Order Comment: Speci men Type: BLOOD SPECIMENOrdering Facility: [facility] Address: [address] [place], [place] [id number] Result Comment: The [place] [employer] (ADA) provides guidance for cutoff [...] Standards of Medical Care in Diabetes 2016, [employer] [employer]. Diabetes Care. 2016.39(Suppl 1). Performed By: #### 2 777-1, , ####[facility] LABCLIA [id number] [place] [address] [place] Potassium [Moles/Vol] 4.6 mmol/L Normal 3.7-5.1 [facility] Comment on above: Order Comment: Speci men Type: BLOOD SPECIMENOrdering Facility: [facility] Address: [address] [place] [address] Performed By: #### 2 777-1, , ####[facility] LABCLIA [id number] [place] [id number] [place] Protein [Mass/Vol] 6.1 g/dL Low 6.3-8.0 [facility] Comment on above: Order Comment: Speci men Type: BLOOD SPECIMENOrdering Facility: [facility] Address: [address] [place] [address] Performed By: #### 2 777-1, , ####[facility] LABCLIA [id number] [address] [address] [place] Sodium [Moles/Vol] 137 mmol/L Normal 136-144 [facility] Comment on above: Order Comment: Speci men Type: BLOOD SPECIMENOrdering Facility: [facility] Address: [address] [place] [address] Performed By: #### 2 777-1, , ####[facility] LABCLIA [id number] [address] [address] [place] Urea nitrogen [Mass/Vol] 13 mg/dL Normal 9-24 [facility] Comment on above: Order Comment: Speci men Type: BLOOD SPECIMENOrdering Facility: [facility] Address: [address] [place] [address] Performed By: #### 2 777-1, , ####[facility] LABCLIA [id number] [address] [address] [place] ECG COMPLETEon 04-15-2024 ECG COMPLETE Normal [facility] HISTORY PHYSICALon HISTORY PHYSICAL Normal [facility] Magnesium SerPl-ncon 04-15 Magnesium [Mass/Vol] 2.3 mg/dL Normal 1.7-2.3 [facility] Comment on above: Order Comment: Speci men Type: BLOOD SPECIMENOrdering Facility: [facility] Address: [address] [place] [address] Performed By: #### 2 777-1, , ####[facility] LABCLIA [id number] [address] [address] [place] NURSING PROGon 04-15-2024 NURSING PROG Normal [facility] Phosphate SerPl-mCncon 04-15 Phosphate [Mass/Vol] 3.9 mg/dL Normal 2.7-4.8 [facility] Comment on above: Order Comment: Speci men Type: BLOOD SPECIMENOrdering Facility: [facility] Address: [address] [place] [address] Performed By: #### 2 777-1, 95259-0, 55821-6 ####[facility] LABCLIA [id number] [place] [address] [place] THERAPY NTon 04-15-2024 THERAPY NT Normal [facility] THERAPY NT Normal [facility] Urinalysis complete panel (U )on 04-15-2024 Bacteria LM.HPF (Urine sed) [#/Area] Negative Normal Negative [facility] Comment on above: Order Comment: Speci men Type: URINE SPECIMENOrdering Facility: [facility] Address: [address] [place] [address] Performed By: #### 2 4356-8 ####[facility] LABCLIA [id number] [place] [address] [place] Bilirubin Ql (U) Negative Normal Negative [facility] Comment on above: Order Comment: Speci men Type: URINE SPECIMENOrdering Facility: [facility] Address: [address] [place] [address] Performed By: #### 2 4356-8 ####[facility] LABCLIA [id number] [place] [address] [place] Clarity (Unsp spec) Clear Normal Clear [facility] Comment on above: Order Comment: Speci men Type: URINE SPECIMENOrdering Facility: [facility] Address: [address] [place] [address] Performed By: #### 2 4356-8 ####[facility] LABCLIA [id number] [place] [address] [place] Color (U) Yellow Normal Yellow [facility] Comment on above: Order Comment: Speci men Type: URINE SPECIMENOrdering Facility: [facility] Address: [address] [place] [address] Performed By: #### 2 4356-8 ####[facility] LABCLIA [id number] [place] [address] [place] Epithelial cells LM.HPF (Urine sed) [#/Area] None Seen Normal [facility] Comment on above: Order Comment: Speci men Type: URINE SPECIMENOrdering Facility: [facility] Address: [address] [place] [address] Performed By: #### 2 4356-8 ####[facility] LABCLIA [id number] [place] [address] [place] Glucose Test strip (U) [Mass/Vol] Negative Normal Negative [facility] Comment on above: Order Comment: Speci men Type: URINE SPECIMENOrdering Facility: [facility] Address: [address] [place] [address] Performed By: #### 2 4356-8 ####[facility] LABCLIA [id number] [place] [address] [place] Hemoglobin Ql (U) Negative Normal Negative [facility] Comment on above: Order Comment: Speci men Type: URINE SPECIMENOrdering Facility: [facility] Address: [address] [place] [address] Performed By: #### 2 4356-8 ####[facility] LABCLIA [id number] [place] [address] [place] Hyaline casts (Urine sed) [#/Area] 0 /[LPF] Normal 0 /LPF [facility] Comment on above: Order Comment: Speci men Type: URINE SPECIMENOrdering Facility: [facility] Address: [address] [place] [address] Performed By: #### 2 4356-8 ####[facility] LABCLIA [id number] [place] [address] [place] Ketones Ql (U) Trace Abnormal Negative [facility] Comment on above: Order Comment: Speci men Type: URINE SPECIMENOrdering Facility: [facility] Address: [address] [place] [address] Performed By: #### 2 4356-8 ####[facility] LABCLIA [id number] [place] [address] [place] Leukocyte esterase Test strip Ql (U) Negative Normal Negative [facility] Comment on above: Order Comment: Speci men Type: URINE SPECIMENOrdering Facility: [facility] Address: [address] [place] [address] Performed By: #### 2 4356-8 ####[facility] LABCLIA [id number] [place] [address] [place] Nitrite Ql (U) Negative Normal Negative [facility] Comment on above: Order Comment: Speci men Type: URINE SPECIMENOrdering Facility: [facility] Address: [address] [place] [address] Performed By: #### 2 4356-8 ####[facility] LABCLIA [id number] [place] [address] [place] pH (U) 6.0 [pH] Normal <8.5 [facility] Comment on above: Order Comment: Speci men Type: URINE SPECIMENOrdering Facility: [facility] Address: [address] [place] [address] Performed By: #### 2 4356-8 ####[facility] LABCLIA [id number] [place] [address] [place] Protein (U) [Mass/Vol] Negative Normal Negative [facility] Comment on above: Order Comment: Speci men Type: URINE SPECIMENOrdering Facility: [facility] Address: [address] [place] [address] Performed By: #### 2 4356-8 ####[facility] LABCLIA [id number] [place] [address] [place] RBC LM.HPF (Urine sed) [#/Area] 0-2 /HPF Normal 0-2 /HPF [facility] Comment on above: Order Comment: Speci men Type: URINE SPECIMENOrdering Facility: [facility] Address: [address] [place] [address] Performed By: #### 2 4356-8 ####[facility] LABIA [id number] [place] [address] [place] Specific gravity (U) [Rel density] 1.016 Normal 1.005-1.03 0 [facility] Comment on above: Order Comment: Speci men Type: URINE SPECIMENOrdering Facility: [facility] Address: [address] [place] [address] Performed By: #### 2 4356-8 ####[facility] LABIA [id number] [place] [address] [place] Urobilinogen Ql (U) 0.2 EU/dL Normal 0.2-1.0 EU/dL [facility] Comment on above: Order Comment: Speci men Type: URINE SPECIMENOrdering Facility: [facility] Address: [address] [place] [address] Performed By: #### 2 4356-8 ####[facility] LABIA [id number] [place] [address] [place] WBC LM.HPF (Urine sed) [#/Area] 0-5 /HPF Normal 0-5 /HPF [facility] Comment on above: Order Comment: Speci men Type: URINE SPECIMENOrdering Facility: [facility] Address: [address] [place] [address] Performed By: #### 2 4356-8 ####[facility] LABIA [id number] [place] [address] [place] Basic metabolic 2000 panelon 04-14-2024 Anion gap [Moles/Vol] 11 mmol/L Normal 8-15 [facility] Comment on above: Order Comment: Speci men Type: BLOOD SPECIMENOrdering Facility: [facility] Address: [address] [place] [address] Performed By: #### 2 4321-2 ####[facility] LABCLIA [id number] [place] [address] [place] Calcium [Mass/Vol] 8.5 mg/dL Normal 8.5-10.2 [facility] Comment on above: Order Comment: Speci men Type: BLOOD SPECIMENOrdering Facility: [facility] Address: [address] [place] [address] Performed By: #### 2 4321-2 ####[facility] LABCLIA [id number] [place] [address] [place] Chloride [Moles/Vol] 105 mmol/L Normal 98-107 [facility] Comment on above: Order Comment: Speci men Type: BLOOD SPECIMENOrdering Facility: [facility] Address: [address] [place] [address] Performed By: #### 2 4321-2 ####[facility] LABCLIA [id number] [place] [address] [place] CO2 [Moles/Vol] 21 mmol/L Low 22-30 [facility] Comment on above: Order Comment: Speci men Type: BLOOD SPECIMENOrdering Facility: [facility] Address: [address] [place] [address] Performed By: #### 2 4321-2 ####[facility] LABCLIA [id number] [place] [address] [place] Creatinine [Mass/Vol] 0.91 mg/dL Normal 0.73-1.22 [facility] Comment on above: Order Comment: Speci men Type: BLOOD SPECIMENOrdering Facility: [facility] Address: [address] [place] [address] Performed By: #### 2 4321-2 ####[facility] LABCLIA [id number] [place] [address] [place] Creatinine and Glomerular filtration rate.predicted panel (S/P/Bld) 92 mL/min/1.73m??? Normal >=60 [facility] Comment on above: Order Comment: Sara randle Type: BLOOD SPECIMENOrdering Facility: [facility] Address: [address] [place] [address] Result Comment: Carol mated Glomerular Filtration Rate [...] actual GFR. Performed By: #### 2 4321-2 ####[facility] LABIA [id number] [place] [address] [place] Glucose [Mass/Vol] 86 mg/dL Normal 74-99 [facility] Comment on above: Order Comment: Sara randle Type: BLOOD SPECIMENOrdering Facility: [facility] Address: [address] [place] [address] Result Comment: The [place] [employer] (ADA) provides guidance for cutoff [...] Standards of Medical Care in Diabetes 2016, [place] [employer]. Diabetes Care. 2016.39(Suppl 1). Performed By: #### 2 4321-2 ####[facility] [id number] [place] [address] [place] Potassium [Moles/Vol] 3.8 mmol/L Normal 3.7-5.1 [facility] Comment on above: Order Comment: Sara randle Type: BLOOD SPECIMENOrdering Facility: [facility] Address: [address] [place] [address] Performed By: #### 2 4321-2 ####[facility] LABCLIA [id number] [place] [id number] [place] Sodium [Moles/Vol] 137 mmol/L Normal 136-144 [facility] Comment on above: Order Comment: Speci men Type: BLOOD SPECIMENOrdering Facility: [facility] Address: [address] [place] [address] Performed By: #### 2 4321-2 ####[facility] LABCLIA [id number] [place] [address] [place] Urea nitrogen [Mass/Vol] 11 mg/dL Normal 9-24 [facility] Comment on above: Order Comment: Speci men Type: BLOOD SPECIMENOrdering Facility: [facility] Address: [address] [place] [address] Performed By: #### 2 4321-2 ####[facility] LABCLIA [id number] [place] [id number] [place] CASE MANAGEMon 04-14-2024 CASE MANAGEM Normal [facility] CBC W Auto Differential pane l (Bld)on 04-14-2024 Basophils (Bld) [#/Vol] 0.00 10*3/uL Normal <0.11 [facility] Comment on above: Order Comment: Speci men Type: BLOOD SPECIMENOrdering Facility: [facility] Address: [address] [place] [address] Performed By: #### 5 7021-8 ####[facility] LABCLIA [id number] [place] [address] [place] Basophils/100 WBC (Bld) 0.0 % Normal [facility] Comment on above: Order Comment: Speci men Type: BLOOD SPECIMENOrdering Facility: [facility] Address: [address] [place] [address] Performed By: #### 5 7021-8 ####[facility] LABCLIA [id number] [place] [address] [place] Differential cell count method Nom (Bld) Manual Normal [facility] Comment on above: Order Comment: Speci men Type: BLOOD SPECIMENOrdering Facility: [facility] Address: [address] [place] [address] Performed By: #### 5 7021-8 ####[facility] LABCLIA [id number] [place] [address] [place] Eosinophils (Bld) [#/Vol] 0.19 10*3/uL Normal <0.46 [facility] Comment on above: Order Comment: Speci men Type: BLOOD SPECIMENOrdering Facility: [facility] Address: [address] [place] [address] Performed By: #### 5 7021-8 ####[facility] LABIA [id number] [place] [address] [place] Eosinophils/100 WBC (Bld) 23.0 % Normal [facility] Comment on above: Order Comment: Speci men Type: BLOOD SPECIMENOrdering Facility: [facility] Address: [address] [place] [address] Performed By: #### 5 7021-8 ####[facility] LABIA [id number] [place] [address] [place] Erythrocyte distribution width (RBC) [Ratio] 14.4 % Normal 11.5-15.0 [facility] Comment on above: Order Comment: Speci men Type: BLOOD SPECIMENOrdering Facility: [facility] Address: [address] [place] [address] Performed By: #### 5 7021-8 ####[facility] LABCLIA [id number] [place] [address] [place] Hematocrit (Bld) [Volume fraction] 30.7 % Low 39.0-51.0 [facility] Comment on above: Order Comment: Speci men Type: BLOOD SPECIMENOrdering Facility: [facility] Address: [address] [place] [address] Performed By: #### 5 7021-8 ####[facility] LABCLIA [id number] [place] [address] [place] Hemoglobin (Bld) [Mass/Vol] 10.4 g/dL Low 13.0-17.0 [facility] Comment on above: Order Comment: Speci men Type: BLOOD SPECIMENOrdering Facility: [facility] Address: [address] [place] [address] Performed By: #### 5 7021-8 ####[facility] LABIA [id number] [place] [address] [place] Lymphocytes (Bld) [#/Vol] 0.13 10*3/uL Low 1.00-4.00 [facility] Comment on above: Order Comment: Speci men Type: BLOOD SPECIMENOrdering Facility: [facility] Address: [address] [place] [address] Performed By: #### 5 7021-8 ####[facility] LABCLIA [id number] [place] [address] [place] Lymphocytes/100 WBC (Bld) 16.0 % Normal [facility] Comment on above: Order Comment: Speci men Type: BLOOD SPECIMENOrdering Facility: [facility] Address: [address] [place] [address] Performed By: #### 5 7021-8 ####[facility] LABCLIA [id number] [place] [address] [place] MCH (RBC) [Entitic mass] 30.4 pg Normal 26.0-34.0 [facility] Comment on above: Order Comment: Speci men Type: BLOOD SPECIMENOrdering Facility: [facility] Address: [address] [place] [address] Performed By: #### 5 7021-8 ####[facility] LABCLIA [id number] [place] [address] [place] MCHC (RBC) [Mass/Vol] 33.9 g/dL Normal 30.5-36.0 [facility] Comment on above: Order Comment: Speci men Type: BLOOD SPECIMENOrdering Facility: [facility] Address: [address] [place] [address] Performed By: #### 5 7021-8 ####[facility] LABIA [id number] [place] [address] [place] MCV (RBC) [Entitic vol] 89.8 fL Normal 80.0-100.0 [facility] Comment on above: Order Comment: Speci men Type: BLOOD SPECIMENOrdering Facility: [facility] Address: [address] [place] [address] Performed By: #### 5 7021-8 ####[facility] LABIA [id number] [place] [address] [place] Monocytes (Bld) [#/Vol] 0.16 10*3/uL Normal <0.87 [facility] Comment on above: Order Comment: Speci men Type: BLOOD SPECIMENOrdering Facility: [facility] Address: [address] [place] [address] Performed By: #### 5 7021-8 ####[facility] LABIA [id number] [place] [address] [place] Monocytes/100 WBC (Bld) 19.0 % Normal [facility] Comment on above: Order Comment: Speci men Type: BLOOD SPECIMENOrdering Facility: [facility] Address: [address] [place] [address] Performed By: #### 5 7021-8 ####[facility] LABCLIA [id number] [place] [address] [place] Neutrophils (Bld) [#/Vol] 0.35 10*3/uL Low 1.45-7.50 [facility] Comment on above: Order Comment: Speci men Type: BLOOD SPECIMENOrdering Facility: [facility] Address: [address] [place] [address] Performed By: #### 5 7021-8 ####[facility] LABCLIA [id number] [place] [address] [place] Neutrophils/100 WBC (Bld) 42.0 % Normal [facility] Comment on above: Order Comment: Speci men Type: BLOOD SPECIMENOrdering Facility: [facility] Address: [address] [place] [address] Performed By: #### 5 7021-8 ####[facility] LABCLIA [id number] [place] [address] [place] Nucleated RBC (Bld) [#/Vol] 10*3/uL Normal <0.01 [facility] Comment on above: Order Comment: Speci men Type: BLOOD SPECIMENOrdering Facility: [facility] Address: [address] [place] [address] Performed By: #### 5 7021-8 ####[facility] LABCLIA [id number] [place] [address] [place] Nucleated RBC/100 WBC (Bld) [Ratio] 0.0 /100 WBC Normal [facility] Comment on above: Order Comment: Speci men Type: BLOOD SPECIMENOrdering Facility: [facility] Address: [address] [place] [address] Performed By: #### 5 7021-8 ####[facility] LABCLIA [id number] [place] [address] [place] Ovalocytes LM Ql (Bld) Few Normal [facility] Comment on above: Order Comment: Speci men Type: BLOOD SPECIMENOrdering Facility: [facility] Address: [address] [place] [address] Performed By: #### 5 7021-8 ####[facility] LABCLIA [id number] [place] [address] [place] Platelet mean volume (Bld) [Entitic vol] 12.3 fL Normal 9.0-12.7 [facility] Comment on above: Order Comment: Speci men Type: BLOOD SPECIMENOrdering Facility: [facility] Address: [address] [place] [address] Performed By: #### 5 7021-8 ####[facility] LABIA [id number] [place] [address] [place] Platelets (Bld) [#/Vol] 39 10*3/uL Low 150-400 [facility] Comment on above: Order Comment: Speci men Type: BLOOD SPECIMENOrdering Facility: [facility] Address: [address] [place] [address] Performed By: #### 5 7021-8 ####[facility] LABIA [id number] [place] [address] [place] Platelets Estimate (Bld) [#/Vol] Decreased Normal [facility] Comment on above: Order Comment: Speci men Type: BLOOD SPECIMENOrdering Facility: [facility] Address: [address] [place] [address] Performed By: #### 5 7021-8 ####[facility] LABIA [id number] [place] [address] [place] Polychromasia LM Ql (Bld) Slight Normal [facility] Comment on above: Order Comment: Speci men Type: BLOOD SPECIMENOrdering Facility: [facility] Address: [address] [place] [address] Performed By: #### 5 7021-8 ####[facility] LABIA [id number] [place] [address] [place] RBC (Bld) [#/Vol] 3.42 10*6/uL Low 4.20-6.00 [facility] Comment on above: Order Comment: Speci men Type: BLOOD SPECIMENOrdering Facility: [facility] Address: [address] [place] [address] Performed By: #### 5 7021-8 ####[facility] LABCLIA [id number] [place] [address] [place] RBC FRAGMENTS Few Abnormal None Seen [facility] Comment on above: Order Comment: Speci men Type: BLOOD SPECIMENOrdering Facility: [facility] Address: [address] [place] [address] Performed By: #### 5 7021-8 ####[facility] LABCLIA [id number] [place] [address] [place] RED CELL MORPH Reviewed: see result s of individual morphologies Normal [facility] Comment on above: Order Comment: Speci men Type: BLOOD SPECIMENOrdering Facility: [facility] Address: [address] [place] [address] Performed By: #### 5 7021-8 ####[facility] LABCLIA [id number] [place] [address] [place] Toxic granules LM Ql (Bld) Present Normal [facility] Comment on above: Order Comment: Speci men Type: BLOOD SPECIMENOrdering Facility: [facility] Address: [address] [place] [address] Performed By: #### 5 7021-8 ####[facility] LABCLIA [id number] [place] [address] [place] WBC (Bld) [#/Vol] 0.84 10*3/uL Low 3.70-11.00 [facility] Comment on above: Order Comment: Speci men Type: BLOOD SPECIMENOrdering Facility: [facility] Address: [address] [place] [address] Result Comment: No c lot detected. Performed By: #### 5 7021-8 ####[facility] LABCLIA [id number] [place] [id number] [place] Basophils (Bld) [#/Vol] 0.01 10*3/uL Normal <0.11 [facility] Comment on above: Order Comment: Speci men Type: BLOOD SPECIMENOrdering Facility: [facility] Address: [address] [place] [address] Performed By: #### 5 7021-8 ####[facility] LABCLIA [id number] [place] [address] [place] Basophils/100 WBC (Bld) 1.8 % Normal [facility] Comment on above: Order Comment: Speci men Type: BLOOD SPECIMENOrdering Facility: [facility] Address: [address] [place] [address] Performed By: #### 5 7021-8 ####[facility] LABCLIA [id number] [place] [address] [place] Differential cell count method Nom (Bld) Manual Normal [facility] Comment on above: Order Comment: Speci men Type: BLOOD SPECIMENOrdering Facility: [facility] Address: [address] [place] [address] Performed By: #### 5 7021-8 ####[facility] LABCLIA [id number] [place] [address] [place] Eosinophils (Bld) [#/Vol] 0.18 10*3/uL Normal <0.46 [facility] Comment on above: Order Comment: Speci men Type: BLOOD SPECIMENOrdering Facility: [facility] Address: [address] [place] [address] Performed By: #### 5 7021-8 ####[facility] LABCLIA [id number] [place] [address] [place] Eosinophils/100 WBC (Bld) 33.9 % Normal [facility] Comment on above: Order Comment: Speci men Type: BLOOD SPECIMENOrdering Facility: [facility] Address: [address] [place] [address] Performed By: #### 5 7021-8 ####[facility] LABCLIA [id number] [place] [address] [place] Erythrocyte distribution width (RBC) [Ratio] 14.3 % Normal 11.5-15.0 [facility] Comment on above: Order Comment: Speci men Type: BLOOD SPECIMENOrdering Facility: [facility] Address: [address] [place] [address] Performed By: #### 5 7021-8 ####[facility] LABCLIA [id number] [place] [address] [place] Hematocrit (Bld) [Volume fraction] 31.4 % Low 39.0-51.0 [facility] Comment on above: Order Comment: Speci men Type: BLOOD SPECIMENOrdering Facility: [facility] Address: [address] [place] [address] Performed By: #### 5 7021-8 ####[facility] LABIA [id number] [place] [address] [place] Hemoglobin (Bld) [Mass/Vol] 10.7 g/dL Low 13.0-17.0 [facility] Comment on above: Order Comment: Speci men Type: BLOOD SPECIMENOrdering Facility: [facility] Address: [address] [place] [address] Performed By: #### 5 7021-8 ####[facility] LABCLIA [id number] [place] [id number] [place] Lymphocytes (Bld) [#/Vol] 0.09 10*3/uL Low 1.00-4.00 [facility] Comment on above: Order Comment: Speci men Type: BLOOD SPECIMENOrdering Facility: [facility] Address: [address] [place] [address] Performed By: #### 5 7021-8 ####[facility] LABIA [id number] [place] [address] [place] Lymphocytes/100 WBC (Bld) 16.1 % Normal [facility] Comment on above: Order Comment: Speci men Type: BLOOD SPECIMENOrdering Facility: [facility] Address: [address] [place] [address] Performed By: #### 5 7021-8 ####[facility] LABCLIA [id number] [place] [address] [place] MCH (RBC) [Entitic mass] 30.4 pg Normal 26.0-34.0 [facility] Comment on above: Order Comment: Speci men Type: BLOOD SPECIMENOrdering Facility: [facility] Address: [address] [place] [address] Performed By: #### 5 7021-8 ####[facility] LABCLIA [id number] [place] [address] [place] MCHC (RBC) [Mass/Vol] 34.1 g/dL Normal 30.5-36.0 [facility] Comment on above: Order Comment: Speci men Type: BLOOD SPECIMENOrdering Facility: [facility] Address: [address] [place] [address] Performed By: #### 5 7021-8 ####[facility] LABIA [id number] [place] [address] [place] MCV (RBC) [Entitic vol] 89.2 fL Normal 80.0-100.0 [facility] Comment on above: Order Comment: Speci men Type: BLOOD SPECIMENOrdering Facility: [facility] Address: [address] [place] [address] Performed By: #### 5 7021-8 ####[facility] LABCLIA [id number] [place] [address] [place] Monocytes (Bld) [#/Vol] 0.12 10*3/uL Normal <0.87 [facility] Comment on above: Order Comment: Speci men Type: BLOOD SPECIMENOrdering Facility: [facility] Address: [address] [place] [address] Performed By: #### 5 7021-8 ####[facility] LABCLIA [id number] [place] [address] [place] Monocytes/100 WBC (Bld) 22.3 % Normal [facility] Comment on above: Order Comment: Speci men Type: BLOOD SPECIMENOrdering Facility: [facility] Address: [address] [place] [address] Performed By: #### 5 7021-8 ####[facility] LABCLIA [id number] [place] [address] [place] Neutrophils (Bld) [#/Vol] 0.14 10*3/uL Low 1.45-7.50 [facility] Comment on above: Order Comment: Speci men Type: BLOOD SPECIMENOrdering Facility: [facility] Address: [address] [place] [address] Performed By: #### 5 7021-8 ####[facility] LABCLIA [id number] [place] [address] [place] Neutrophils/100 WBC (Bld) 25.9 % Normal [facility] Comment on above: Order Comment: Speci men Type: BLOOD SPECIMENOrdering Facility: [facility] Address: [address] [place] [address] Performed By: #### 5 7021-8 ####[facility] LABCLIA [id number] [place] [address] [place] Nucleated RBC (Bld) [#/Vol] 10*3/uL Normal <0.01 [facility] Comment on above: Order Comment: Speci men Type: BLOOD SPECIMENOrdering Facility: [facility] Address: [address] [place] [address] Performed By: #### 5 7021-8 ####[facility] LABCLIA [id number] [place] [address] [place] Nucleated RBC/100 WBC (Bld) [Ratio] 0.9 /100 WBC Normal [facility] Comment on above: Order Comment: Speci men Type: BLOOD SPECIMENOrdering Facility: [facility] Address: [address] [place] [address] Performed By: #### 5 7021-8 ####[facility] LABCLIA [id number] [place] [address] [place] Ovalocytes LM Ql (Bld) Few Normal [facility] Comment on above: Order Comment: Speci men Type: BLOOD SPECIMENOrdering Facility: [facility] Address: [address] [place] [address] Performed By: #### 5 7021-8 ####[facility] LABCLIA [id number] [place] [address] [place] Platelet mean volume (Bld) [Entitic vol] 10.7 fL Normal 9.0-12.7 [facility] Comment on above: Order Comment: Speci men Type: BLOOD SPECIMENOrdering Facility: [facility] Address: [address] [place] [address] Performed By: #### 5 7021-8 ####[facility] LABCLIA [id number] [place] [address] [place] Platelets (Bld) [#/Vol] 41 10*3/uL Low 150-400 [facility] Comment on above: Order Comment: Speci men Type: BLOOD SPECIMENOrdering Facility: [facility] Address: [address] [place] [address] Result Comment: Resu lts checked and verified.No clot detected. Performed By: #### 5 7021-8 ####[facility] LABCLIA [id number] [place] [address] [place] Platelets Estimate (Bld) [#/Vol] Decreased Normal [facility] Comment on above: Order Comment: Speci men Type: BLOOD SPECIMENOrdering Facility: [facility] Address: [address] [place] [address] Performed By: #### 5 7021-8 ####[facility] LABCLIA [id number] [place] [address] [place] Polychromasia LM Ql (Bld) Slight Normal [facility] Comment on above: Order Comment: Speci men Type: BLOOD SPECIMENOrdering Facility: [facility] Address: [address] [place] [address] Performed By: #### 5 7021-8 ####[facility] LABCLIA [id number] [place] [address] [place] RBC (Bld) [#/Vol] 3.52 10*6/uL Low 4.20-6.00 [facility] Comment on above: Order Comment: Speci men Type: BLOOD SPECIMENOrdering Facility: [facility] Address: [address] [place] [address] Performed By: #### 5 7021-8 ####[facility] LABCLIA [id number] [place] [address] [place] RBC FRAGMENTS Few Abnormal None Seen [facility] Comment on above: Order Comment: Speci men Type: BLOOD SPECIMENOrdering Facility: [facility] Address: [address] [place] [address] Performed By: #### 5 7021-8 ####[facility] LABCLIA [id number] [place] [address] [place] RED CELL MORPH Reviewed: see result s of individual morphologies Normal [facility] Comment on above: Order Comment: Speci men Type: BLOOD SPECIMENOrdering Facility: [facility] Address: [address] [place] [address] Performed By: #### 5 7021-8 ####[facility] LABCLIA [id number] [place] [address] [place] WBC (Bld) [#/Vol] 0.53 10*3/uL Low 3.70-11.00 [facility] Comment on above: Order Comment: Speci men Type: BLOOD SPECIMENOrdering Facility: [facility] Address: [address] [place] [address] Result Comment: Resu lts checked and verified.No clot detected. Performed By: #### 5 7021-8 ####[facility] LABCLIA [id number] [place] [address] [place] CNDSon 04-14-2024 CNDS Normal [facility] CNPNon 04-14-2024 CNPN Normal [facility] CRP SerPl-mCncon 04-14-2024 CRP [Mass/Vol] 1.2 mg/dL High <0.9 [facility] Comment on above: Order Comment: Speci men Type: BLOOD SPECIMENOrdering Facility: [facility] Address: [address] [place] [address] Performed By: #### 1 988-5, 15916-7, 3084-1, 2777-1, 2276-4, HSTNT ####[facility] LABCLIA [id number] [place] [address] [place] CT BRAIN WO IVCONon 04-14-[address] BRAIN WO IVCON Normal [facility] Comprehensive metabolic 2000 panelon 04-14-2024 Albumin [Mass/Vol] 3.2 g/dL Low 3.9-4.9 [facility] Comment on above: Order Comment: Speci men Type: BLOOD SPECIMENOrdering Facility: [facility] Address: [address] [place] [address] Performed By: #### 2 4323-8, 2532-0 ####[facility] LABCLIA [id number] [place] [address] [place] ALP [Catalytic activity/Vol] 107 U/L Normal 38-113 [facility] Comment on above: Order Comment: Speci men Type: BLOOD SPECIMENOrdering Facility: [facility] Address: [address] [place] [id number] Performed By: #### 2 4323-8, 2531-0 ####[facility] LABCLIA [id number] [place] [address] [place] ALT [Catalytic activity/Vol] 31 U/L Normal 10-54 [facility] Comment on above: Order Comment: Speci men Type: BLOOD SPECIMENOrdering Facility: [facility] Address: [address] [place] [address] Performed By: #### 2 4328, 2531-0 ####[facility] LABCLIA [id number] [place] [address] [place] Anion gap [Moles/Vol] 12 mmol/L Normal 8-15 [facility] Comment on above: Order Comment: Speci men Type: BLOOD SPECIMENOrdering Facility: [facility] Address: [address] [place] [address] Performed By: #### 2 432-8, 2531-0 ####[facility] LABCLIA [id number] [place] [address] [place] AST [Catalytic activity/Vol] 28 U/L Normal 14-40 [facility] Comment on above: Order Comment: Speci men Type: BLOOD SPECIMENOrdering Facility: [facility] Address: [address] [place], [place] [address] Performed By: #### 2 432-8, 2532-0 ####[facility] LABCLIA [id number] [place] [id number] [place] Bilirubin [Mass/Vol] 0.4 mg/dL Normal 0.2-1.3 [facility] Comment on above: Order Comment: Speci men Type: BLOOD SPECIMENOrdering Facility: [facility] Address: [address] [place], [place] [address] Performed By: #### 2 4323-, 2532-0 ####[facility] LABCLIA [id number] [facility] [address] [address] [place] Calcium [Mass/Vol] 8.0 mg/dL Low 8.5-10.2 [facility] Comment on above: Order Comment: Speci men Type: BLOOD SPECIMENOrdering Facility: [facility] Address: [address] [place] [address] Performed By: #### 2 4328, 2531-0 ####[facility] LABCLIA [id number] [place] [address] [place] Chloride [Moles/Vol] 106 mmol/L Normal 98-107 [facility] Comment on above: Order Comment: Speci men Type: BLOOD SPECIMENOrdering Facility: [facility] Address: [address] [place] [address] Performed By: #### 2 4328, 2531-0 ####[facility] LABCLIA [id number] [place] [address] [place] CO2 [Moles/Vol] 20 mmol/L Low 22-30 [facility] Comment on above: Order Comment: Speci men Type: BLOOD SPECIMENOrdering Facility: [facility] Address: [address] [place] [address] Performed By: #### 2 4328, 2531-0 ####[facility] LABCLIA [id number] [place] [address] [place] Creatinine [Mass/Vol] 1.04 mg/dL Normal 0.73-1.22 [facility] Comment on above: Order Comment: Speci men Type: BLOOD SPECIMENOrdering Facility: [facility] Address: [address] [place] [address] Performed By: #### 2 4323-8, 2531-0 ####[facility] LABCLIA [id number] [id number] [address] [place] Creatinine and Glomerular filtration rate.predicted panel (S/P/Bld) 79 mL/min/1.73m??? Normal >=60 [facility] Comment on above: Order Comment: Sara randle Type: BLOOD SPECIMENOrdering Facility: [facility] Address: [address] [place] [address] Result Comment: Carol mated Glomerular Filtration Rate [...] GFR. Performed By: #### 2 4323-8, 0 ####[facility] LABCLIA [id number] [place] [address] [place] Glucose [Mass/Vol] 80 mg/dL Normal 74-99 [facility] Comment on above: Order Comment: Sara randle Type: BLOOD SPECIMENOrdering Facility: [facility] Address: [address] [place] [address] Result Comment: The [place] [employer] (ADA) provides guidance for cutoff [...] Standards of Medical Care in Diabetes 2016, [place] [employer]. Diabetes Care. 2016.39(Suppl 1). Performed By: #### 2 4323-8, 0 ####[facility] LABCLIA [id number] [place] [address] [place] Potassium [Moles/Vol] 4.0 mmol/L Normal 3.7-5.1 [facility] Comment on above: Order Comment: Speci men Type: BLOOD SPECIMENOrdering Facility: [facility] Address: [address] [place] [address] Performed By: #### 2 4323-8, 2531-0 ####[facility] LABCLIA [id number] [address] [address] [place] Protein [Mass/Vol] 5.2 g/dL Low 6.3-8.0 [facility] Comment on above: Order Comment: Speci men Type: BLOOD SPECIMENOrdering Facility: [facility] Address: [address] [place] [address] Performed By: #### 2 4323-8, 0 ####[facility] LABCLIA [id number] [place] [address] [place] Sodium [Moles/Vol] 138 mmol/L Normal 136-144 [facility] Comment on above: Order Comment: Speci men Type: BLOOD SPECIMENOrdering Facility: [facility] Address: [address] [place] [address] Performed By: #### 2 4323-8, 0 ####[facility] LABCLIA [id number] [place] [address] [place] Urea nitrogen [Mass/Vol] 9 mg/dL Normal 9-24 [facility] Comment on above: Order Comment: Speci men Type: BLOOD SPECIMENOrdering Facility: [facility] Address: [address] [place] [address] Performed By: #### 2 4323-8, 0 ####[facility] LABCLIA [id number] [place] [id number] [place] ECG COMPLETEon 04-14-2024 ECG COMPLETE Normal [facility] ED NOTEon 04-14-2024 ED NOTE HNO ID: [id number] Author: SEPIDEH GARBER RN Service: ? Author Type: Registered Nurse Type: ED Notes Filed: 04/14/2024 19:07 Note Text: Bed: E12-14 Expected date: Expected time: Means of arrival: Comments: Hawa Normal [facility] ED PROV NOTEon 04-14-2024 ED PROV NOTE Normal [facility] ED Triage Noteon 04-14-2024 ED Triage Note Normal [facility] Ferritin SerPl-mCncon 2023 Ferritin [Mass/Vol] 546.0 ng/mL Normal 30.3-565.7 [facility] Comment on above: Order Comment: Sara randle Type: BLOOD SPECIMENOrdering Facility: [facility] Address: [address] [place] [address] Performed By: #### 1 988-5, 44239-9, 3084-1, 2777-1, 2276-4, HSTNT ####[facility] LABCLIA [id number] [place] [address] [place] HIGH SENSITIVITY TROPONIN To n 04-14-2024 Troponin T.cardiac High sensitivity method [Mass/Vol] 11 ng/L Normal <12 [facility] Comment on above: Order Comment: Sara randle Type: BLOOD SPECIMENOrdering Facility: [facility] Address: [address] [place] [address] Result Comment: When assessing risk for acute [...] day MACE. Performed By: #### 1 988-5, 32178-0, 3084-1, 2777-1, 2276-4, HSTNT ####[facility] LABCLIA [id number] [place] [id number] [place] LDH SerPl-cCncon 04-14-2024 LDH [Catalytic activity/Vol] 227 U/L High 135-225 [facility] Comment on above: Order Comment: Speci men Type: BLOOD SPECIMENOrdering Facility: [facility] Address: [address] [place] [address] Result Comment: Hemo lysis present. The origin [...] indicated. Performed By: #### 2 4323-8, 2532-0 ####[facility] LABCLIA [id number] [address] [address] [place] Magnesium SerPl-ncon 04-14 Magnesium [Mass/Vol] 2.1 mg/dL Normal 1.7-2.3 [facility] Comment on above: Order Comment: Speci men Type: BLOOD SPECIMENOrdering Facility: [facility] Address: [address] [place], [place] [address] Performed By: #### 1 988-5, 90159-0, 3084-1, 2777-1, 2276-4, HSTNT ####[facility] LABCLIA [id number] [address] [address] [place] NURSING PROGon 04-14-2024 NURSING PROG Normal [facility] NURSING PROG Normal [facility] Phosphate [Mass/Vol] 2.9 mg/dL Normal 2.7-4.8 [facility] Comment on above: Order Comment: Speci men Type: BLOOD SPECIMENOrdering Facility: [facility] Address: [address] [place] [address] Performed By: #### 1 988-5, 44962-1, 3084-1, 2777-1, 2276-4, HSTNT ####[facility] LABCLIA [id number] [address] [address] [place] SOCIAL WORKon 04-14-2024 SOCIAL WORK Normal [facility] TYPE + SCREENon 04-14-2024 ABO B Normal [facility] Comment on above: Order Comment: Speci men Type: BLOOD SPECIMENOrdering Facility: [facility] Address: [address] [place] [address] Performed By: #### T SCR ####CC MAIN BLOOD BANKCLIA [id number] [place] [id number] [place] HISTORICAL AB SCR STATUS Negative Normal [facility] Comment on above: Order Comment: Speci men Type: BLOOD SPECIMENOrdering Facility: [facility] Address: [address] [place] [address] Performed By: #### T SCR ####CC MAIN BLOOD BANKCLIA [id number] [place] [address] [place] Rh Nom (Bld) Negative Normal [facility] Comment on above: Order Comment: Speci men Type: BLOOD SPECIMENOrdering Facility: [facility] Address: [address] [place] [address] Performed By: #### T SCR ####CC MAIN BLOOD BANKCLIA [id number] [place] [address] [place] TYPE AND SCREEN EXPIRATION 04/17/2024 23:59 Normal [facility] Comment on above: Order Comment: Speci men Type: BLOOD SPECIMENOrdering Facility: [facility] Address: [address] [place] [address] Performed By: #### T SCR ####CC MAIN BLOOD BANKCLIA [id number] [place] [id number] [place] Urate SerPl-mCncon 4 Urate [Mass/Vol] 3.1 mg/dL Low 4.0-8.1 [facility] Comment on above: Order Comment: Speci men Type: BLOOD SPECIMENOrdering Facility: [facility] Address: [address] [place] [address] Performed By: #### 1 988-5, 96175-7, 3084-1, 2777-1, 2276-4, HSTNT ####[facility] LABCLIA [id number] [place] [address] [place] CBC W Auto Differential pane l (Bld)on 04-13-2024 Basophils (Bld) [#/Vol] Normal [facility] Comment on above: Order Comment: Speci men Type: BLOOD SPECIMENOrdering Facility: [facility] Address: [address] [place] [address] Result Comment: Too Few Cells To Do Differential. Performed By: #### 5 7021-8 ####[facility] LABCLIA [id number] [place] [address] [place] Basophils/100 WBC (Bld) Normal [facility] Comment on above: Order Comment: Speci men Type: BLOOD SPECIMENOrdering Facility: [facility] Address: [address] [place] [address] Result Comment: Too Few Cells To Do Differential. Performed By: #### 5 7021-8 ####[facility] LABCLIA [id number] [place] [address] [place] Differential cell count method Nom (Bld) Auto Normal [facility] Comment on above: Order Comment: Speci men Type: BLOOD SPECIMENOrdering Facility: [facility] Address: [address] [place] [address] Performed By: #### 5 7021-8 ####[facility] LABCLIA [id number] [place] [address] [place] Eosinophils (Bld) [#/Vol] Normal [facility] Comment on above: Order Comment: Speci men Type: BLOOD SPECIMENOrdering Facility: [facility] Address: [address] [place] [address] Result Comment: Too Few Cells To Do Differential. Performed By: #### 5 7021-8 ####[facility] LABCLIA [id number] [place] [address] [place] Eosinophils/100 WBC (Bld) Normal [facility] Comment on above: Order Comment: Speci men Type: BLOOD SPECIMENOrdering Facility: [facility] Address: [address] [place] [address] Result Comment: Too Few Cells To Do Differential. Performed By: #### 5 7021-8 ####[facility] LABCLIA [id number] [place] [address] [place] Erythrocyte distribution width (RBC) [Ratio] 14.3 % Normal 11.5-15.0 [facility] Comment on above: Order Comment: Speci men Type: BLOOD SPECIMENOrdering Facility: [facility] Address: [address] [place] [address] Performed By: #### 5 7021-8 ####[facility] LABCLIA [id number] [place] [address] [place] Hematocrit (Bld) [Volume fraction] 29.4 % Low 39.0-51.0 [facility] Comment on above: Order Comment: Speci men Type: BLOOD SPECIMENOrdering Facility: [facility] Address: [address] [place] [address] Performed By: #### 5 7021-8 ####[facility] LABCLIA [id number] [place] [address] [place] Hemoglobin (Bld) [Mass/Vol] 10.1 g/dL Low 13.0-17.0 [facility] Comment on above: Order Comment: Speci men Type: BLOOD SPECIMENOrdering Facility: [facility] Address: [address] [place] [address] Performed By: #### 5 7021-8 ####[facility] LABCLIA [id number] [place] [address] [place] Immature granulocytes (Bld) [#/Vol] Normal [facility] Comment on above: Order Comment: Speci men Type: BLOOD SPECIMENOrdering Facility: [facility] Address: [address] [place] [address] Result Comment: Too Few Cells To Do Differential. Performed By: #### 5 7021-8 ####[facility] LABCLIA [id number] [place] [address] [place] Immature granulocytes/100 WBC (Bld) Normal [facility] Comment on above: Order Comment: Speci men Type: BLOOD SPECIMENOrdering Facility: [facility] Address: [address] [place] [address] Result Comment: Too Few Cells To Do Differential. Performed By: #### 5 7021-8 ####[facility] LABCLIA [id number] [place] [address] [place] Lymphocytes (Bld) [#/Vol] Normal [facility] Comment on above: Order Comment: Speci men Type: BLOOD SPECIMENOrdering Facility: [facility] Address: [address] [place] [address] Result Comment: Too Few Cells To Do Differential. Performed By: #### 5 7021-8 ####[facility] LABCLIA [id number] [place] [address] [place] Lymphocytes/100 WBC (Bld) Normal [facility] Comment on above: Order Comment: Speci men Type: BLOOD SPECIMENOrdering Facility: [facility] Address: [address] [place] [address] Result Comment: Too Few Cells To Do Differential. Performed By: #### 5 7021-8 ####[facility] LABCLIA [id number] [place] [address] [place] MCH (RBC) [Entitic mass] 30.7 pg Normal 26.0-34.0 [facility] Comment on above: Order Comment: Speci men Type: BLOOD SPECIMENOrdering Facility: [facility] Address: [address] [place] [address] Performed By: #### 5 7021-8 ####[facility] LABCLIA [id number] [place] [address] [place] MCHC (RBC) [Mass/Vol] 34.4 g/dL Normal 30.5-36.0 [facility] Comment on above: Order Comment: Speci men Type: BLOOD SPECIMENOrdering Facility: [facility] Address: [address] [place] [address] Performed By: #### 5 7021-8 ####[facility] LABCLIA [id number] [place] [address] [place] MCV (RBC) [Entitic vol] 89.4 fL Normal 80.0-100.0 [facility] Comment on above: Order Comment: Speci men Type: BLOOD SPECIMENOrdering Facility: [facility] Address: [address] [place] [address] Performed By: #### 5 7021-8 ####[facility] LABCLIA [id number] [place] [address] [place] Monocytes (Bld) [#/Vol] Normal [facility] Comment on above: Order Comment: Speci men Type: BLOOD SPECIMENOrdering Facility: [facility] Address: [address] [place] [address] Result Comment: Too Few Cells To Do Differential. Performed By: #### 5 7021-8 ####[facility] LABCLIA [id number] [place] [address] [place] Monocytes/100 WBC (Bld) Normal [facility] Comment on above: Order Comment: Speci men Type: BLOOD SPECIMENOrdering Facility: [facility] Address: [address] [place] [address] Result Comment: Too Few Cells To Do Differential. Performed By: #### 5 7021-8 ####[facility] LABCLIA [id number] [place] [address] [place] Neutrophils (Bld) [#/Vol] Normal [facility] Comment on above: Order Comment: Speci men Type: BLOOD SPECIMENOrdering Facility: [facility] Address: [address] [place] [address] Result Comment: Too Few Cells To Do Differential. Performed By: #### 5 7021-8 ####[facility] LABCLIA [id number] [place] [address] [place] Neutrophils/100 WBC (Bld) Normal [facility] Comment on above: Order Comment: Speci men Type: BLOOD SPECIMENOrdering Facility: [facility] Address: [address] [place] [address] Result Comment: Too Few Cells To Do Differential. Performed By: #### 5 7021-8 ####[facility] LABCLIA [id number] [place] [address] [place] Nucleated RBC (Bld) [#/Vol] 10*3/uL Normal <0.01 [facility] Comment on above: Order Comment: Speci men Type: BLOOD SPECIMENOrdering Facility: [facility] Address: [address] [place] [address] Performed By: #### 5 7021-8 ####[facility] LABCLIA [id number] [place] [address] [place] Nucleated RBC/100 WBC (Bld) [Ratio] 0.0 /100 WBC Normal [facility] Comment on above: Order Comment: Speci men Type: BLOOD SPECIMENOrdering Facility: [facility] Address: [address] [place] [address] Performed By: #### 5 7021-8 ####[facility] LABIA [id number] [place] [address] [place] Platelet mean volume (Bld) [Entitic vol] 11.6 fL Normal 9.0-12.7 [facility] Comment on above: Order Comment: Speci men Type: BLOOD SPECIMENOrdering Facility: [facility] Address: [address] [place] [address] Performed By: #### 5 7021-8 ####[facility] LABCLIA [id number] [place] [address] [place] Platelets (Bld) [#/Vol] 32 10*3/uL Low 150-400 [facility] Comment on above: Order Comment: Speci men Type: BLOOD SPECIMENOrdering Facility: [facility] Address: [address] [place] [address] Result Comment: No c lot detected.Checked and Verified\X09\ Performed By: #### 5 7021-8 ####[facility] LABCLIA [id number] [place] [address] [place] RBC (Bld) [#/Vol] 3.29 10*6/uL Low 4.20-6.00 [facility] Comment on above: Order Comment: Speci men Type: BLOOD SPECIMENOrdering Facility: [facility] Address: [address] [place] [address] Performed By: #### 5 7021-8 ####[facility] LABCLIA [id number] [place] [address] [place] WBC (Bld) [#/Vol] 0.30 10*3/uL Low 3.70-11.00 [facility] Comment on above: Order Comment: Speci men Type: BLOOD SPECIMENOrdering Facility: [facility] Address: [address] [place] [address] Result Comment: Too Few Cells To Do DifferentialNo clot detected. Performed By: #### 5 7021-8 ####[facility] LABCLIA [id number] [place] [address] [place] CRP SerPl-mCncon 04-13-2024 CRP [Mass/Vol] 1.7 mg/dL High <0.9 [facility] Comment on above: Order Comment: Speci men Type: BLOOD SPECIMENOrdering Facility: [facility] Address: [address] [place] [address] Performed By: #### 1 988-5, 35112-0, 3084-1, 2777-1, 2276-4 ####[facility] LABCLIA [id number] [place] [address] [place] Comprehensive metabolic 2000 panelon 04-13-2024 Albumin [Mass/Vol] 3.1 g/dL Low 3.9-4.9 [facility] Comment on above: Order Comment: Speci men Type: BLOOD SPECIMENOrdering Facility: [facility] Address: [address] [place] [address] Performed By: #### 2 4323-8, 2531-0 ####[facility] LABCLIA [id number] [place] [address] [place] ALP [Catalytic activity/Vol] 118 U/L High 38-113 [facility] Comment on above: Order Comment: Speci men Type: BLOOD SPECIMENOrdering Facility: [facility] Address: [address] [place] [address] Performed By: #### 2 4323-8, 2531-0 ####[facility] LABIA [id number] [place] [address] [place] ALT [Catalytic activity/Vol] 22 U/L Normal 10-54 [facility] Comment on above: Order Comment: Speci men Type: BLOOD SPECIMENOrdering Facility: [facility] Address: [address] [place] [address] Performed By: #### 2 4323-8, 2532-0 ####[facility] LABIA [id number] [place] [id number] [place] Anion gap [Moles/Vol] 9 mmol/L Normal 8-15 [facility] Comment on above: Order Comment: Speci men Type: BLOOD SPECIMENOrdering Facility: [facility] Address: [address] [place], [place] [address] Performed By: #### 2 4323-8, 2532-0 ####[facility] LABCLIA [id number] [place] [id number] [place] AST [Catalytic activity/Vol] 16 U/L Normal 14-40 [facility] Comment on above: Order Comment: Speci men Type: BLOOD SPECIMENOrdering Facility: [facility] Address: [address] [place] [address] Performed By: #### 2 432-8, 2531-0 ####[facility] LABCLIA [id number] [place] [address] [place] Bilirubin [Mass/Vol] 0.3 mg/dL Normal 0.2-1.3 [facility] Comment on above: Order Comment: Speci men Type: BLOOD SPECIMENOrdering Facility: [facility] Address: [address] [place] [address] Performed By: #### 2 432-8, 2531-0 ####[facility] LABIA [id number] [place] [address] [place] Calcium [Mass/Vol] 7.8 mg/dL Low 8.5-10.2 [facility] Comment on above: Order Comment: Speci men Type: BLOOD SPECIMENOrdering Facility: [facility] Address: [address] [place] [address] Performed By: #### 2 4323-8, 2531-0 ####[facility] LABIA [id number] [place] [address] [place] Chloride [Moles/Vol] 106 mmol/L Normal 98-107 [facility] Comment on above: Order Comment: Speci men Type: BLOOD SPECIMENOrdering Facility: [facility] Address: [address] [place] [address] Performed By: #### 2 4323-8, 2532-0 ####[facility] LABCLIA [id number] [place] [address] [place] CO2 [Moles/Vol] 23 mmol/L Normal 22-30 [facility] Comment on above: Order Comment: Speci men Type: BLOOD SPECIMENOrdering Facility: [facility] Address: [facility] [place] [address] Performed By: #### 2 4323-8, 2531-0 ####[facility] LABCLIA [id number] [facility] [place] [address] [place] Creatinine [Mass/Vol] 1.20 mg/dL Normal 0.73-1.22 [facility] Comment on above: Order Comment: Speci men Type: BLOOD SPECIMENOrdering Facility: [facility] Address: [address] [place] [address] Performed By: #### 2 4323-8, 2531-0 ####[facility] LABCLIA [id number] [place] [address] [place] Creatinine and Glomerular filtration rate.predicted panel (S/P/Bld) 66 mL/min/1.73m??? Normal >=60 [facility] Comment on above: Order Comment: Speci men Type: BLOOD SPECIMENOrdering Facility: [facility] Address: [address] [place] [address] Result Comment: Carol mated Glomerular Filtration Rate [...] GFR. Performed By: #### 2 4323-8, 2531-0 ####[facility] LABCLIA [id number] [place] [address] [place] Glucose [Mass/Vol] 104 mg/dL High 74-99 [facility] Comment on above: Order Comment: Speci men Type: BLOOD SPECIMENOrdering Facility: [facility] Address: [address] [place] [address] Result Comment: The [place] [employer] (ADA) provides guidance for cutoff [...] Standards of Medical Care in Diabetes 2016, [place] [employer]. Diabetes Care. 2016.39(Suppl 1). Performed By: #### 2 4323-8, 2531-0 ####[facility] LABCLIA [id number] [place] [address] [place] Potassium [Moles/Vol] 3.6 mmol/L Low 3.7-5.1 [facility] Comment on above: Order Comment: Speci men Type: BLOOD SPECIMENOrdering Facility: [facility] Address: [address] [place] [address] Performed By: #### 2 4323-8, 2531-0 ####[facility] LABIA [id number] [place] [address] [place] Protein [Mass/Vol] 5.0 g/dL Low 6.3-8.0 [facility] Comment on above: Order Comment: Speci men Type: BLOOD SPECIMENOrdering Facility: [facility] Address: [address] [place] [address] Performed By: #### 2 4323-8, 2531-0 ####[facility] LABIA [id number] [place] [address] [place] Sodium [Moles/Vol] 138 mmol/L Normal 136-144 [facility] Comment on above: Order Comment: Speci men Type: BLOOD SPECIMENOrdering Facility: [facility] Address: [address] [place] [address] Performed By: #### 2 4323-8, 2532-0 ####[facility] LABIA [id number] [place] [address] [place] Urea nitrogen [Mass/Vol] 8 mg/dL Low 9-24 [facility] Comment on above: Order Comment: Speci men Type: BLOOD SPECIMENOrdering Facility: [facility] Address: [address] [place] [address] Performed By: #### 2 4323-8, 2532-0 ####[facility] LABIA [id number] [place] [address] [place] Ferritin SerPl-mCncon 2023 Ferritin [Mass/Vol] 556.0 ng/mL Normal 30.3-565.7 [facility] Comment on above: Order Comment: Speci men Type: BLOOD SPECIMENOrdering Facility: [facility] Address: [address] [place] [address] Performed By: #### 1 988-5, 12369-9, 3084-1, 2777-1, 2276-4 ####[facility] [id number] [place] [address] [place] LDH SerPl-cCncon 04-13-2024 LDH [Catalytic activity/Vol] 167 U/L Normal 135-225 [facility] Comment on above: Order Comment: Speci men Type: BLOOD SPECIMENOrdering Facility: [facility] Address: [address] [place] [address] Performed By: #### 2 4323-8, 253-0 ####[facility] [id number] [place] [address] [place] Magnesium SerPl-mCncon 04-13 Magnesium [Mass/Vol] 2.1 mg/dL Normal 1.7-2.3 [facility] Comment on above: Order Comment: Speci men Type: BLOOD SPECIMENOrdering Facility: [facility] Address: [address] [place], [place] [address] [address] Performed By: #### 1 988-5, 90126-6, 3084-1, 7-1, 6-4 ####[facility] LABCLIA [id number] [place] [id number] [place] NUTRITIONon 04-13-2024 NUTRITION Normal [facility] Phosphate SerPl-mCncon 04-13 Phosphate [Mass/Vol] 2.4 mg/dL Low 2.7-4.8 [facility] Comment on above: Order Comment: Speci men Type: BLOOD SPECIMENOrdering Facility: [facility] Address: [address] [place] [address] Performed By: #### 1 988-5, 54496-3, 4-1, 2776-1, 6-4 ####[facility] LABCLIA [id number] [place] [address] [place] U[facility] Urate [Mass/Vol] 2.1 mg/dL Low 4.0-8.1 [facility] Comment on above: Order Comment: Speci men Type: BLOOD SPECIMENOrdering Facility: [facility] Address: [address] [place] [address] [place] [address] Performed By: #### 1 988-5, 25456-6, 3083-1, 2776-1, 6-4 ####[facility] LABCLIA [id number] [place] [id number] [place] Bacteria Bld Culton 04-12-20 24 Bacteria identified Cx Nom (Bld) CULTURE, BLOOD: No growth 5 days Normal [facility] Comment on above: Performed By: #### 6 00-7 ####[facility] LABCLIA [id number] [place] [address] [place] Bacteria identified Cx Nom (Bld) CULTURE, BLOOD: No growth 5 days Normal [facility] Comment on above: Performed By: #### 6 00-7 ####[facility] LABCLIA [id number] [place] [address] [place] CBC W Auto Differential pane l (Bld)on 04-12-2024 Basophils (Bld) [#/Vol] Normal [facility] Comment on above: Order Comment: Speci men Type: BLOOD SPECIMENOrdering Facility: [facility] Address: [address] [place] [address] Result Comment: Too Few Cells To Do Differential. Performed By: #### 5 7021-8 ####[facility] LABIA [id number] [place] [address] [place] Basophils/100 WBC (Bld) Normal [facility] Comment on above: Order Comment: Speci men Type: BLOOD SPECIMENOrdering Facility: [facility] Address: [address] [place] [address] Result Comment: Too Few Cells To Do Differential. Performed By: #### 5 7021-8 ####[facility] LABCLIA [id number] [place] [address] [place] Differential cell count method Nom (Bld) Auto Normal [facility] Comment on above: Order Comment: Speci men Type: BLOOD SPECIMENOrdering Facility: [facility] Address: [address] [place] [address] Performed By: #### 5 7021-8 ####[facility] LABCLIA [id number] [place] [address] [place] Eosinophils (Bld) [#/Vol] Normal [facility] Comment on above: Order Comment: Speci men Type: BLOOD SPECIMENOrdering Facility: [facility] Address: [address] [place] [address] Result Comment: Too Few Cells To Do Differential. Performed By: #### 5 7021-8 ####[facility] LABCLIA [id number] [place] [address] [place] Eosinophils/100 WBC (Bld) Normal [facility] Comment on above: Order Comment: Speci men Type: BLOOD SPECIMENOrdering Facility: [facility] Address: [address] [place] [address] Result Comment: Too Few Cells To Do Differential. Performed By: #### 5 7021-8 ####[facility] LABCLIA [id number] [place] [address] [place] Erythrocyte distribution width (RBC) [Ratio] 13.9 % Normal 11.5-15.0 [facility] Comment on above: Order Comment: Speci men Type: BLOOD SPECIMENOrdering Facility: [facility] Address: [address] [place] [address] Performed By: #### 5 7021-8 ####[facility] LABCLIA [id number] [place] [address] [place] Hematocrit (Bld) [Volume fraction] 30.4 % Low 39.0-51.0 [facility] Comment on above: Order Comment: Speci men Type: BLOOD SPECIMENOrdering Facility: [facility] Address: [address] [place] [address] Performed By: #### 5 7021-8 ####[facility] LABCLIA [id number] [place] [address] [place] Hemoglobin (Bld) [Mass/Vol] 10.6 g/dL Low 13.0-17.0 [facility] Comment on above: Order Comment: Speci men Type: BLOOD SPECIMENOrdering Facility: [facility] Address: [address] [place] [address] Performed By: #### 5 7021-8 ####[facility] LABCLIA [id number] [place] [address] [place] Immature granulocytes (Bld) [#/Vol] Normal [facility] Comment on above: Order Comment: Speci men Type: BLOOD SPECIMENOrdering Facility: [facility] Address: [address] [place] [address] Result Comment: Too Few Cells To Do Differential. Performed By: #### 5 7021-8 ####[facility] LABCLIA [id number] [place] [address] [place] Immature granulocytes/100 WBC (Bld) Normal [facility] Comment on above: Order Comment: Speci men Type: BLOOD SPECIMENOrdering Facility: [facility] Address: [address] [place] [address] Result Comment: Too Few Cells To Do Differential. Performed By: #### 5 7021-8 ####[facility] LABCLIA [id number] [place] [address] [place] Lymphocytes (Bld) [#/Vol] Normal [facility] Comment on above: Order Comment: Speci men Type: BLOOD SPECIMENOrdering Facility: [facility] Address: [address] [place] [address] Result Comment: Too Few Cells To Do Differential. Performed By: #### 5 7021-8 ####[facility] LABCLIA [id number] [place] [address] [place] Lymphocytes/100 WBC (Bld) Normal [facility] Comment on above: Order Comment: Speci men Type: BLOOD SPECIMENOrdering Facility: [facility] Address: [address] [place] [address] Result Comment: Too Few Cells To Do Differential. Performed By: #### 5 7021-8 ####[facility] LABCLIA [id number] [place] [address] [place] MCH (RBC) [Entitic mass] 30.7 pg Normal 26.0-34.0 [facility] Comment on above: Order Comment: Speci men Type: BLOOD SPECIMENOrdering Facility: [facility] Address: [address] [place] [address] Performed By: #### 5 7021-8 ####[facility] LABCLIA [id number] [place] [address] [place] MCHC (RBC) [Mass/Vol] 34.9 g/dL Normal 30.5-36.0 [facility] Comment on above: Order Comment: Speci men Type: BLOOD SPECIMENOrdering Facility: [facility] Address: [address] [place] [address] Performed By: #### 5 7021-8 ####[facility] LABCLIA [id number] [place] [address] [place] MCV (RBC) [Entitic vol] 88.1 fL Normal 80.0-100.0 [facility] Comment on above: Order Comment: Speci men Type: BLOOD SPECIMENOrdering Facility: [facility] Address: [address] [place] [address] Performed By: #### 5 7021-8 ####[facility] LABIA [id number] [place] [address] [place] Monocytes (Bld) [#/Vol] Normal [facility] Comment on above: Order Comment: Speci men Type: BLOOD SPECIMENOrdering Facility: [facility] Address: [address] [place] [address] Result Comment: Too Few Cells To Do Differential. Performed By: #### 5 7021-8 ####[facility] LABCLIA [id number] [place] [address] [place] Monocytes/100 WBC (Bld) Normal [facility] Comment on above: Order Comment: Speci men Type: BLOOD SPECIMENOrdering Facility: [facility] Address: [address] [place] [address] Result Comment: Too Few Cells To Do Differential. Performed By: #### 5 7021-8 ####[facility] LABCLIA [id number] [place] [address] [place] Neutrophils (Bld) [#/Vol] Normal [facility] Comment on above: Order Comment: Speci men Type: BLOOD SPECIMENOrdering Facility: [facility] Address: [address] [place] [address] Result Comment: Too Few Cells To Do Differential. Performed By: #### 5 7021-8 ####[facility] LABCLIA [id number] [place] [address] [place] Neutrophils/100 WBC (Bld) Normal [facility] Comment on above: Order Comment: Speci men Type: BLOOD SPECIMENOrdering Facility: [facility] Address: [address] [place] [address] Result Comment: Too Few Cells To Do Differential. Performed By: #### 5 7021-8 ####[facility] LABCLIA [id number] [place] [address] [place] Nucleated RBC (Bld) [#/Vol] 10*3/uL Normal <0.01 [facility] Comment on above: Order Comment: Speci men Type: BLOOD SPECIMENOrdering Facility: [facility] Address: [address] [place] [address] Performed By: #### 5 7021-8 ####[facility] LABCLIA [id number] [place] [address] [place] Nucleated RBC/100 WBC (Bld) [Ratio] 0.0 /100 WBC Normal [facility] Comment on above: Order Comment: Speci men Type: BLOOD SPECIMENOrdering Facility: [facility] Address: [address] [place] [address] Performed By: #### 5 7021-8 ####[facility] LABCLIA [id number] [place] [address] [place] Platelet mean volume (Bld) [Entitic vol] 11.0 fL Normal 9.0-12.7 [facility] Comment on above: Order Comment: Speci men Type: BLOOD SPECIMENOrdering Facility: [facility] Address: [address] [place] [address] Performed By: #### 5 7021-8 ####[facility] LABCLIA [id number] [place] [address] [place] Platelets (Bld) [#/Vol] 37 10*3/uL Low 150-400 [facility] Comment on above: Order Comment: Speci men Type: BLOOD SPECIMENOrdering Facility: [facility] Address: [address] [place] [address] Performed By: #### 5 7021-8 ####[facility] LABCLIA [id number] [place] [address] [place] RBC (Bld) [#/Vol] 3.45 10*6/uL Low 4.20-6.00 [facility] Comment on above: Order Comment: Speci men Type: BLOOD SPECIMENOrdering Facility: [facility] Address: [address] [place] [address] Performed By: #### 5 7021-8 ####[facility] LABIA [id number] [place] [address] [place] WBC (Bld) [#/Vol] 0.20 10*3/uL Low 3.70-11.00 [facility] Comment on above: Order Comment: Speci men Type: BLOOD SPECIMENOrdering Facility: [facility] Address: [address] [place] [address] Result Comment: Resu lts checked and verified.No clot detected. Performed By: #### 5 7021-8 ####[facility] LABIA [id number] [place] [address] [place] CRP SerPl-mCncon 04-12-2024 CRP [Mass/Vol] 2.7 mg/dL High <0.9 [facility] Comment on above: Order Comment: Speci men Type: BLOOD SPECIMENOrdering Facility: [facility] Address: [address] [place] [address] Performed By: #### 1 988-5, 80836-1, 2777-1, 3084-1, 2276-4 ####[facility] LABCLIA [id number] [place] [id number] [place] Comprehensive metabolic 2000 panelon 04-12-2024 Albumin [Mass/Vol] 3.1 g/dL Low 3.9-4.9 [facility] Comment on above: Order Comment: Speci men Type: BLOOD SPECIMENOrdering Facility: [facility] Address: [address] [place] [address] Performed By: #### 2 4323-8, 2532-0 ####[facility] LABCLIA [id number] [place] [address] [place] ALP [Catalytic activity/Vol] 109 U/L Normal 38-113 [facility] Comment on above: Order Comment: Speci men Type: BLOOD SPECIMENOrdering Facility: [facility] Address: [address] [place] [address] Performed By: #### 2 432-8, 2531-0 ####[facility] LABCLIA [id number] [place] [address] [place] ALT [Catalytic activity/Vol] 20 U/L Normal 10-54 [facility] Comment on above: Order Comment: Speci men Type: BLOOD SPECIMENOrdering Facility: [facility] Address: [address] [place] [address] Performed By: #### 2 4323-8, 2532-0 ####[facility] LABCLIA [id number] [address] [address] [place] Anion gap [Moles/Vol] 10 mmol/L Normal 8-15 [facility] Comment on above: Order Comment: Speci men Type: BLOOD SPECIMENOrdering Facility: [facility] Address: [address] [place] [address] Performed By: #### 2 4323-8, 2532-0 ####[facility] LABCLIA [id number] [place] [address] [place] AST [Catalytic activity/Vol] 13 U/L Low 14-40 [facility] Comment on above: Order Comment: Speci men Type: BLOOD SPECIMENOrdering Facility: [facility] Address: [address] [place] [address] Performed By: #### 2 4323-8, 2531-0 ####[facility] LABIA [id number] [place] [address] [place] Bilirubin [Mass/Vol] 0.3 mg/dL Normal 0.2-1.3 [facility] Comment on above: Order Comment: Speci men Type: BLOOD SPECIMENOrdering Facility: [facility] Address: [address] [place] [address] Performed By: #### 2 4323-8, 2531-0 ####[facility] LABIA [id number] [place] [address] [place] Calcium [Mass/Vol] 7.6 mg/dL Low 8.5-10.2 [facility] Comment on above: Order Comment: Speci men Type: BLOOD SPECIMENOrdering Facility: [facility] Address: [address] [place] [address] Performed By: #### 2 4323-8, 2531-0 ####[facility] LABIA [id number] [place] [address] [place] Chloride [Moles/Vol] 106 mmol/L Normal 98-107 [facility] Comment on above: Order Comment: Speci men Type: BLOOD SPECIMENOrdering Facility: [facility] Address: [address] [place] [address] Performed By: #### 2 4323-8, 2532-0 ####[facility] LABCLIA [id number] [place] [address] [place] CO2 [Moles/Vol] 21 mmol/L Low 22-30 [facility] Comment on above: Order Comment: Speci men Type: BLOOD SPECIMENOrdering Facility: [facility] Address: [address] [place] [address] Performed By: #### 2 4323-8, 2531-0 ####[facility] LABCLIA [id number] [address] [address] [place] Creatinine [Mass/Vol] 1.12 mg/dL Normal 0.73-1.22 [facility] Comment on above: Order Comment: Speci men Type: BLOOD SPECIMENOrdering Facility: [facility] Address: [address] [place] [address] Performed By: #### 2 4323-8, 0 ####[facility] LABCLIA [id number] [place] [address] [place] Creatinine and Glomerular filtration rate.predicted panel (S/P/Bld) 72 mL/min/1.73m??? Normal >=60 [facility] Comment on above: Order Comment: Speci men Type: BLOOD SPECIMENOrdering Facility: [facility] Address: [address] [place] [address] Result Comment: Carol mated Glomerular Filtration Rate [...] GFR. Performed By: #### 2 4323-8, 0 ####[facility] LABCLIA [id number] [place] [address] [place] Glucose [Mass/Vol] 115 mg/dL High 74-99 [facility] Comment on above: Order Comment: Speci men Type: BLOOD SPECIMENOrdering Facility: [facility] Address: [address] [place] [address] Result Comment: The [place] [employer] (ADA) provides guidance for cutoff [...] Standards of Medical Care in Diabetes 2016, [place] [employer]. Diabetes Care. 2016.39(Suppl 1). Performed By: #### 2 4323-8, 2531-0 ####[facility] LABIA [id number] [place] [address] [place] Potassium [Moles/Vol] 3.3 mmol/L Low 3.7-5.1 [facility] Comment on above: Order Comment: Speci men Type: BLOOD SPECIMENOrdering Facility: [facility] Address: [address] [place] [address] Performed By: #### 2 4323-8, 2531-0 ####[facility] LABIA [id number] [place] [address] [place] Protein [Mass/Vol] 4.9 g/dL Low 6.3-8.0 [facility] Comment on above: Order Comment: Speci men Type: BLOOD SPECIMENOrdering Facility: [facility] Address: [address] [place] [address] Performed By: #### 2 4323-8, 2531-0 ####[facility] LABCLIA [id number] [place] [address] [place] Sodium [Moles/Vol] 137 mmol/L Normal 136-144 [facility] Comment on above: Order Comment: Speci men Type: BLOOD SPECIMENOrdering Facility: [facility] Address: [address] [place] [address] Performed By: #### 2 4323-8, 2532-0 ####[facility] LABIA [id number] [place] [address] [place] Urea nitrogen [Mass/Vol] 6 mg/dL Low 9-24 [facility] Comment on above: Order Comment: Speci men Type: BLOOD SPECIMENOrdering Facility: [facility] Address: [address] [place] [address] Performed By: #### 2 4323-8, 2532-0 ####[facility] LABIA [id number] [place] [id number] [place] Ferritin SerPl-mCncon 2023 Ferritin [Mass/Vol] 950.0 ng/mL High 30.3-565.7 [facility] Comment on above: Order Comment: Speci men Type: BLOOD SPECIMENOrdering Facility: [facility] Address: [address] [place] [address] Performed By: #### 1 988-5, 32518-7, 2777-1, 3084-1, 2276-4 ####[facility] [id number] [place] [address] [place] LDH SerPl-cCncon 04-12-2024 LDH [Catalytic activity/Vol] 165 U/L Normal 135-225 [facility] Comment on above: Order Comment: Speci men Type: BLOOD SPECIMENOrdering Facility: [facility] Address: [address] [place] [address] Performed By: #### 2 4323-8, 253-0 ####[facility] [id number] [place] [address] [place] Magnesium SerPl-mCncon 04-12 Magnesium [Mass/Vol] 1.9 mg/dL Normal 1.7-2.3 [facility] Comment on above: Order Comment: Speci men Type: BLOOD SPECIMENOrdering Facility: [facility] Address: [address] [place] [address], [place] [address] Performed By: #### 1 988-5, 04393-7, 2776-1, 3084-1, 6-4 ####[facility] LABCLIA [id number] [address] [address] [place] NURSING PROGon 04-12-2024 NURSING PROG Normal [facility] Phosphate SerPl-ncon 04-12 Phosphate [Mass/Vol] 2.2 mg/dL Low 2.7-4.[address] [facility] Comment on above: Order Comment: Speci men Type: BLOOD SPECIMENOrdering Facility: [facility] Address: [address] [place] [address] Performed By: #### 1 988-5, 41206-2, 2776-1, 3084-1, 6-4 ####[facility] LABIA [id number] [place] [address] [place] Urate [facility] Urate [Mass/Vol] 1.7 mg/dL Low 4.0-8.1 [facility] Comment on above: Order Comment: Speci men Type: BLOOD SPECIMENOrdering Facility: [facility] Address: [facility] [address] Performed By: #### 1 988-5, 89136-9, 2776-1, 3084-1, 6-4 ####[facility] LABCLIA [id number] [address] [address] [place] Bacteria Bld Culton 04-11-20 24 Bacteria identified Cx Nom (Bld) CULTURE, BLOOD: No growth 5 days Normal [facility] Comment on above: Performed By: #### 6 00-7 ####[facility] LABCLIA [id number] [address] [address] [place] Bacteria identified Cx Nom (Bld) CULTURE, BLOOD: No growth 5 days Normal [facility] Comment on above: Performed By: #### 6 00-7 ####[facility] LABCLIA [id number] [place] [address] [place] C diff Tox gens Stl Ql HARVEY+p robeon 04-11-2024 C. difficile toxin genes HARVEY+probe Ql (Stl) Negative Normal Negative for C. difficile toxin by PCR [facility] Comment on above: Order Comment: Speci men Type: STOOL SPECIMENOrdering Facility: [facility] Address: [address] [place] [address] Performed By: #### 5 4067-4 ####[facility] LABCLIA [id number] [place] [address] [place] CBC W Auto Differential pane l (Bld)on 04-11-2024 Basophils (Bld) [#/Vol] Normal [facility] Comment on above: Order Comment: Speci men Type: BLOOD SPECIMENOrdering Facility: [facility] Address: [address] [place] [address] Result Comment: Too Few Cells To Do Differential. Performed By: #### 5 7021-8 ####[facility] LABCLIA [id number] [place] [address] [place] Basophils/100 WBC (Bld) Normal [facility] Comment on above: Order Comment: Speci men Type: BLOOD SPECIMENOrdering Facility: [facility] Address: [address] [place] [address] Result Comment: Too Few Cells To Do Differential. Performed By: #### 5 7021-8 ####[facility] LABCLIA [id number] [place] [address] [place] Differential cell count method Nom (Bld) Auto Normal [facility] Comment on above: Order Comment: Speci men Type: BLOOD SPECIMENOrdering Facility: [facility] Address: [address] [place] [address] Performed By: #### 5 7021-8 ####[facility] LABCLIA [id number] [place] [address] [place] Eosinophils (Bld) [#/Vol] Normal [facility] Comment on above: Order Comment: Speci men Type: BLOOD SPECIMENOrdering Facility: [facility] Address: [address] [place] [address] Result Comment: Too Few Cells To Do Differential. Performed By: #### 5 7021-8 ####[facility] LABCLIA [id number] [place] [address] [place] Eosinophils/100 WBC (Bld) Normal [facility] Comment on above: Order Comment: Speci men Type: BLOOD SPECIMENOrdering Facility: [facility] Address: [address] [place] [address] Result Comment: Too Few Cells To Do Differential. Performed By: #### 5 7021-8 ####[facility] LABCLIA [id number] [place] [address] [place] Erythrocyte distribution width (RBC) [Ratio] 13.6 % Normal 11.5-15.0 [facility] Comment on above: Order Comment: Speci men Type: BLOOD SPECIMENOrdering Facility: [facility] Address: [address] [place] [address] Performed By: #### 5 7021-8 ####[facility] LABCLIA [id number] [place] [address] [place] Hematocrit (Bld) [Volume fraction] 32.2 % Low 39.0-51.0 [facility] Comment on above: Order Comment: Speci men Type: BLOOD SPECIMENOrdering Facility: [facility] Address: [address] [place] [address] Performed By: #### 5 7021-8 ####[facility] LABCLIA [id number] [place] [address] [place] Hemoglobin (Bld) [Mass/Vol] 11.1 g/dL Low 13.0-17.0 [facility] Comment on above: Order Comment: Speci men Type: BLOOD SPECIMENOrdering Facility: [facility] Address: [address] [place] [address] Performed By: #### 5 7021-8 ####[facility] LABCLIA [id number] [place] [address] [place] Immature granulocytes (Bld) [#/Vol] Normal [facility] Comment on above: Order Comment: Speci men Type: BLOOD SPECIMENOrdering Facility: [facility] Address: [address] [place] [address] Result Comment: Too Few Cells To Do Differential. Performed By: #### 5 7021-8 ####[facility] LABCLIA [id number] [place] [address] [place] Immature granulocytes/100 WBC (Bld) Normal [facility] Comment on above: Order Comment: Speci men Type: BLOOD SPECIMENOrdering Facility: [facility] Address: [address] [place] [address] Result Comment: Too Few Cells To Do Differential. Performed By: #### 5 7021-8 ####[facility] LABCLIA [id number] [place] [address] [place] Lymphocytes (Bld) [#/Vol] Normal [facility] Comment on above: Order Comment: Speci men Type: BLOOD SPECIMENOrdering Facility: [facility] Address: [address] [place] [address] Result Comment: Too Few Cells To Do Differential. Performed By: #### 5 7021-8 ####[facility] LABCLIA [id number] [place] [address] [place] Lymphocytes/100 WBC (Bld) Normal [facility] Comment on above: Order Comment: Speci men Type: BLOOD SPECIMENOrdering Facility: [facility] Address: [address] [place] [address] Result Comment: Too Few Cells To Do Differential. Performed By: #### 5 7021-8 ####[facility] LABIA [id number] [place] [address] [place] MCH (RBC) [Entitic mass] 30.9 pg Normal 26.0-34.0 [facility] Comment on above: Order Comment: Speci men Type: BLOOD SPECIMENOrdering Facility: [facility] Address: [address] [place] [address] Performed By: #### 5 7021-8 ####[facility] LABIA [id number] [place] [address] [place] MCHC (RBC) [Mass/Vol] 34.5 g/dL Normal 30.5-36.0 [facility] Comment on above: Order Comment: Speci men Type: BLOOD SPECIMENOrdering Facility: [facility] Address: [address] [place] [address] Performed By: #### 5 7021-8 ####[facility] [id number] [place] [address] [place] MCV (RBC) [Entitic vol] 89.7 fL Normal 80.0-100.0 [facility] Comment on above: Order Comment: Speci men Type: BLOOD SPECIMENOrdering Facility: [facility] Address: [address] [place] [address] Performed By: #### 5 7021-8 ####[facility] LABIA [id number] [place] [address] [place] Monocytes (Bld) [#/Vol] Normal [facility] Comment on above: Order Comment: Speci men Type: BLOOD SPECIMENOrdering Facility: [facility] Address: [address] [place] [address] Result Comment: Too Few Cells To Do Differential. Performed By: #### 5 7021-8 ####[facility] LABIA [id number] [place] [address] [place] Monocytes/100 WBC (Bld) Normal [facility] Comment on above: Order Comment: Speci men Type: BLOOD SPECIMENOrdering Facility: [facility] Address: [address] [place] [address] Result Comment: Too Few Cells To Do Differential. Performed By: #### 5 7021-8 ####[facility] LABCLIA [id number] [place] [address] [place] Neutrophils (Bld) [#/Vol] Normal [facility] Comment on above: Order Comment: Speci men Type: BLOOD SPECIMENOrdering Facility: [facility] Address: [address] [place] [address] Result Comment: Too Few Cells To Do Differential. Performed By: #### 5 7021-8 ####[facility] LABCLIA [id number] [place] [address] [place] Neutrophils/100 WBC (Bld) Normal [facility] Comment on above: Order Comment: Speci men Type: BLOOD SPECIMENOrdering Facility: [facility] Address: [address] [place] [address] Result Comment: Too Few Cells To Do Differential. Performed By: #### 5 7021-8 ####[facility] LABCLIA [id number] [place] [address] [place] Nucleated RBC (Bld) [#/Vol] 10*3/uL Normal <0.01 [facility] Comment on above: Order Comment: Speci men Type: BLOOD SPECIMENOrdering Facility: [facility] Address: [address] [place] [address] Performed By: #### 5 7021-8 ####[facility] LABCLIA [id number] [place] [address] [place] Nucleated RBC/100 WBC (Bld) [Ratio] 0.0 /100 WBC Normal [facility] Comment on above: Order Comment: Speci men Type: BLOOD SPECIMENOrdering Facility: [facility] Address: [address] [place] [address] Performed By: #### 5 7021-8 ####[facility] LABIA [id number] [place] [address] [place] Platelet mean volume (Bld) [Entitic vol] 9.8 fL Normal 9.0-12.7 [facility] Comment on above: Order Comment: Speci men Type: BLOOD SPECIMENOrdering Facility: [facility] Address: [address] [place] [address] Performed By: #### 5 7021-8 ####[facility] LABIA [id number] [place] [address] [place] Platelets (Bld) [#/Vol] 46 10*3/uL Low 150-400 [facility] Comment on above: Order Comment: Speci men Type: BLOOD SPECIMENOrdering Facility: [facility] Address: [address] [place] [address] Result Comment: No c lot detected. Performed By: #### 5 7021-8 ####[facility] LABIA [id number] [place] [address] [place] RBC (Bld) [#/Vol] 3.59 10*6/uL Low 4.20-6.00 [facility] Comment on above: Order Comment: Speci men Type: BLOOD SPECIMENOrdering Facility: [facility] Address: [address] [place] [address] Performed By: #### 5 7021-8 ####[facility] LABIA [id number] [place] [address] [place] WBC (Bld) [#/Vol] 0.10 10*3/uL Low 3.70-11.00 [facility] Comment on above: Order Comment: Speci men Type: BLOOD SPECIMENOrdering Facility: [facility] Address: [address] [place] [address] Result Comment: No c lot detected. Too Few Cells To Do Differential Performed By: #### 5 7021-8 ####[facility] LABCLIA [id number] [place] [address] [place] CRP SerPl-mCncon 04-11-2024 CRP [Mass/Vol] 4.3 mg/dL High <0.9 [facility] Comment on above: Order Comment: Speci men Type: BLOOD SPECIMENOrdering Facility: [facility] Address: [address] [place] [address] Performed By: #### 1 9123-9, 2777-1, 3084-1, 2276-4, 1987- ####[facility] LABIA [id number] [place] [address] [place] Comprehensive metabolic 2000 panelon 04-11-2024 Albumin [Mass/Vol] 3.1 g/dL Low 3.9-4.9 [facility] Comment on above: Order Comment: Speci men Type: BLOOD SPECIMENOrdering Facility: [facility] Address: [address] [place] [address] Performed By: #### 2 4323-8, 253-0 ####[facility] LABIA [id number] [place] [address] [place] ALP [Catalytic activity/Vol] 119 U/L High 38-113 [facility] Comment on above: Order Comment: Speci men Type: BLOOD SPECIMENOrdering Facility: [facility] Address: [address] [place] [address] Performed By: #### 2 4323-8, 2532-0 ####[facility] LABIA [id number] [place] [address] [place] ALT [Catalytic activity/Vol] 19 U/L Normal 10-54 [facility] Comment on above: Order Comment: Speci men Type: BLOOD SPECIMENOrdering Facility: [facility] Address: [address] [place] [address] Performed By: #### 2 4323-8, 2532-0 ####[facility] LABCLIA [id number] [facility] [place] [address] [place] Anion gap [Moles/Vol] 9 mmol/L Normal 8-15 [facility] Comment on above: Order Comment: Speci men Type: BLOOD SPECIMENOrdering Facility: [facility] Address: [address] [place] [address] Performed By: #### 2 432-8, 2531-0 ####[facility] LABCLIA [id number] [place] [address] [place] AST [Catalytic activity/Vol] 16 U/L Normal 14-40 [facility] Comment on above: Order Comment: Speci men Type: BLOOD SPECIMENOrdering Facility: [facility] Address: [address] [place] [address] Performed By: #### 2 4328, 2531-0 ####[facility] LABCLIA [id number] [place] [address] [place] Bilirubin [Mass/Vol] 0.3 mg/dL Normal 0.2-1.3 [facility] Comment on above: Order Comment: Speci men Type: BLOOD SPECIMENOrdering Facility: [facility] Address: [address] [place] [address] Performed By: #### 2 432-8, 2531-0 ####[facility] LABCLIA [id number] [place] [address] [place] Calcium [Mass/Vol] 7.6 mg/dL Low 8.5-10.2 [facility] Comment on above: Order Comment: Speci men Type: BLOOD SPECIMENOrdering Facility: [facility] Address: [address] [place] [address] Performed By: #### 2 4323-8, 2531-0 ####[facility] LABCLIA [id number] [id number] [address] [place] Chloride [Moles/Vol] 107 mmol/L Normal 98-107 [facility] Comment on above: Order Comment: Speci men Type: BLOOD SPECIMENOrdering Facility: [facility] Address: [address] [place] [address] Performed By: #### 2 4323-8, 2532-0 ####[facility] LABCLIA [id number] [place] [address] [place] CO2 [Moles/Vol] 21 mmol/L Low 22-30 [facility] Comment on above: Order Comment: Speci men Type: BLOOD SPECIMENOrdering Facility: [facility] Address: [address] [place] [address] Performed By: #### 2 4323-8, 2532-0 ####[facility] LABCLIA [id number] [place] [address] [place] Creatinine [Mass/Vol] 1.13 mg/dL Normal 0.73-1.22 [facility] Comment on above: Order Comment: Speci men Type: BLOOD SPECIMENOrdering Facility: [facility] Address: [address] [place] [address] Performed By: #### 2 4323-8, 2532-0 ####[facility] LABIA [id number] [place] [address] [place] Creatinine and Glomerular filtration rate.predicted panel (S/P/Bld) 71 mL/min/1.73m??? Normal >=60 [facility] Comment on above: Order Comment: Speci men Type: BLOOD SPECIMENOrdering Facility: [facility] Address: [address] [place] [address] Result Comment: Carol mated Glomerular Filtration Rate [...] GFR. Performed By: #### 2 4323-8, 0 ####[facility] LABIA [id number] [place] [address] [place] Glucose [Mass/Vol] 115 mg/dL High 74-99 [facility] Comment on above: Order Comment: Specjos men Type: BLOOD SPECIMENOrdering Facility: [facility] Address: [address] [place] [address] Result Comment: The [place] [employer] (ADA) provides guidance for cutoff [...] Standards of Medical Care in Diabetes 2016, [place] [employer]. Diabetes Care. 2016.39(Suppl 1). Performed By: #### 2 4323-8, 0 ####[facility] LABIA [id number] [place] [address] [place] Potassium [Moles/Vol] 3.5 mmol/L Low 3.7-5.1 [facility] Comment on above: Order Comment: Sara randle Type: BLOOD SPECIMENOrdering Facility: [facility] Address: [address] [place] [address] Performed By: #### 2 4323-8, 2531-0 ####[facility] LABIA [id number] [place] [address] [place] Protein [Mass/Vol] 5.1 g/dL Low 6.3-8.0 [facility] Comment on above: Order Comment: Sara randle Type: BLOOD SPECIMENOrdering Facility: [facility] Address: [address] [place], [place] [address] Performed By: #### 2 4323-8, 2532-0 ####[facility] LABIA [id number] [place] [id number] [place] Sodium [Moles/Vol] 137 mmol/L Normal 136-144 [facility] Comment on above: Order Comment: Speci men Type: BLOOD SPECIMENOrdering Facility: [facility] Address: [address] [place] [address] Performed By: #### 2 4323-8, 2532-0 ####[facility] LABIA [id number] [place] [address] [place] Urea nitrogen [Mass/Vol] 9 mg/dL Normal 9-24 [facility] Comment on above: Order Comment: Speci men Type: BLOOD SPECIMENOrdering Facility: [facility] Address: [address] [place] [address] Performed By: #### 2 4323-8, 2531-0 ####[facility] [id number] [place] [address] [place] Ferritin SerPl-mCncon 2023 Ferritin [Mass/Vol] 920.0 ng/mL High 30.3-565.7 [facility] Comment on above: Order Comment: Speci men Type: BLOOD SPECIMENOrdering Facility: [facility] Address: [address] [place] [address] Performed By: #### 1 9123-9, 2777-1, 3084-1, 2276-4, 1988- ####[facility] LABIA [id number] [place] [id number] [place] Gas and Carbon monoxide pane l (BldV)on 04-11-2024 Base excess Calc (BldV) [Moles/Vol] 0 mmol/L Normal 0-2 [facility] Comment on above: Order Comment: Speci men Type: VENOUS BLOOD SPECIMENOrdering Facility: [facility] Address: [address] [place] [address] Performed By: #### 2 4344-4 ####[facility] LABIA [id number] [place] [address] [place] Body temperature 100.22 [degF] Normal [facility] Comment on above: Order Comment: Speci men Type: VENOUS BLOOD SPECIMENOrdering Facility: [facility] Address: [address] [place] [address] Performed By: #### 2 4344-4 ####[facility] [id number] [place] [address] [place] Calcium.ionized (Bld) [Mass/Vol] 1.12 mmol/L Normal 1.08-1.30 [facility] Comment on above: Order Comment: Speci men Type: VENOUS BLOOD SPECIMENOrdering Facility: [facility] Address: [address] [place] [address] Performed By: #### 2 4344-4 ####[facility] [id number] [place] [address] [place] Calcium.ionized adjusted to pH 7.4 (BldA) [Moles/Vol] 1.12 mmol/L Normal 1.08-1.30 [facility] Comment on above: Order Comment: Speci men Type: VENOUS BLOOD SPECIMENOrdering Facility: [facility] Address: [address] [place] [address] Performed By: #### 2 4344-4 ####[facility] [id number] [place] [address] [place] Carboxyhemoglobin (BldV) [Mass fraction] 1.6 % Normal 0.0-2.0 [facility] Comment on above: Order Comment: Speci men Type: VENOUS BLOOD SPECIMENOrdering Facility: [facility] Address: [address] [place] [address] Result Comment: Carb oxyhemoglobin Reference Range for Smokers: 2.0-8.0% Performed By: #### 2 4344-4 ####[facility] LABCLIA [id number] [place] [address] [place] CO2 (BldV) [Partial pressure] 39 mm[Hg] Low 42-55 [facility] Comment on above: Order Comment: Speci men Type: VENOUS BLOOD SPECIMENOrdering Facility: [facility] Address: [address] [place] [address] Performed By: #### 2 4344-4 ####[facility] LABCLIA [id number] [address] [place] CO2 adjusted to patient's actual temperature (BldV) [Partial pressure] 41 mmHg Low 42-55 [facility] Comment on above: Order Comment: Speci men Type: VENOUS BLOOD SPECIMENOrdering Facility: [facility] Address: [address] [place] [address] Performed By: #### 2 4344-4 ####[facility] LABCLIA [id number] [place] [address] [place] Glucose [Mass/Vol] 129 mg/dL High 60-105 [facility] Comment on above: Order Comment: Speci men Type: VENOUS BLOOD SPECIMENOrdering Facility: [facility] Address: [address] [place] [address] Performed By: #### 2 4344-4 ####[facility] LABCLIA [id number] [place] [address] [place] HCO3 (Bld) [Moles/Vol] 24 mmol/L Normal 24-28 [facility] Comment on above: Order Comment: Speci men Type: VENOUS BLOOD SPECIMENOrdering Facility: [facility] Address: [address] [place] [address] Performed By: #### 2 4344-4 ####[facility] LABCLIA [id number] [place] [address] [place] Hematocrit (Bld) [Volume fraction] 32.5 % Low 39.0-51.0 [facility] Comment on above: Order Comment: Speci men Type: VENOUS BLOOD SPECIMENOrdering Facility: [facility] Address: [address] [place] [address] Performed By: #### 2 4344-4 ####[facility] LABCLIA [id number] [place] [address] [place] Hemoglobin (Bld) [Mass/Vol] 10.5 g/dL Low 13.0-17.0 [facility] Comment on above: Order Comment: Speci men Type: VENOUS BLOOD SPECIMENOrdering Facility: [facility] Address: [address] [place] [address] Performed By: #### 2 4344-4 ####[facility] LABCLIA [id number] [place] [address] [place] Lactate [Moles/Vol] 1.5 mmol/L Normal 0.5-2.2 [facility] Comment on above: Order Comment: Speci men Type: VENOUS BLOOD SPECIMENOrdering Facility: [facility] Address: [address] [place] [address] Performed By: #### 2 4344-4 ####[facility] LABCLIA [id number] [place] [address] [place] Methemoglobin (Bld) [Mass fraction] 0.4 % Normal 0.0-1.5 [facility] Comment on above: Order Comment: Speci men Type: VENOUS BLOOD SPECIMENOrdering Facility: [facility] Address: [address] [place] [address] Performed By: #### 2 4344-4 ####[facility] LABCLIA [id number] [place] [address] [place] O2 THERAPY RA=Room Air Normal [facility] Comment on above: Order Comment: Speci men Type: VENOUS BLOOD SPECIMENOrdering Facility: [facility] Address: [address] [place] [address] Performed By: #### 2 4344-4 ####[facility] LABCLIA [id number] [address] [address] [place] Oxygen (BldV) [Partial pressure] 37 mm[Hg] Normal 35-45 [facility] Comment on above: Order Comment: Speci men Type: VENOUS BLOOD SPECIMENOrdering Facility: [facility] Address: [address] [place], [place] [address] Performed By: #### 2 4344-4 ####[facility] LABCLIA [id number] [address] [address] [place] Oxygen adjusted to patient's actual temperature (BldV) [Partial pressure] 39 mmHg Normal 35-45 [facility] Comment on above: Order Comment: Speci men Type: VENOUS BLOOD SPECIMENOrdering Facility: [facility] Address: [address] [place], [place] [address] Performed By: #### 2 4344-4 ####[facility] LABCLIA [id number] [address] [address] [place] Oxygen saturation in Venous blood 67 % Normal 60-85 [facility] Comment on above: Order Comment: Speci men Type: VENOUS BLOOD SPECIMENOrdering Facility: [facility] Address: [address] [place] [address] Performed By: #### 2 4344-4 ####[facility] LABCLIA [id number] [address] [address] [place] Oxyhemoglobin (BldV) [Mass fraction] 66 % Normal 60-85 [facility] Comment on above: Order Comment: Speci men Type: VENOUS BLOOD SPECIMENOrdering Facility: [facility] Address: [address] [place] [address] Performed By: #### 2 4344-4 ####[facility] LABCLIA [id number] [address] [address] [place] pH (BldV) 7.40 [pH] Normal 7.32-7.42 [facility] Comment on above: Order Comment: Speci men Type: VENOUS BLOOD SPECIMENOrdering Facility: [facility] Address: [address] [place] [address] Performed By: #### 2 4344-4 ####[facility] LABCLIA [id number] [place] [address] [place] pH adjusted to patient's actual temperature (BldV) 7.39 Normal 7.32-7.42 [facility] Comment on above: Order Comment: Speci men Type: VENOUS BLOOD SPECIMENOrdering Facility: [facility] Address: [address] [place] [address] Performed By: #### 2 4344-4 ####[facility] LABCLIA [id number] [place] [address] [place] Potassium [Moles/Vol] 3.2 mmol/L Low 3.5-5.0 [facility] Comment on above: Order Comment: Speci men Type: VENOUS BLOOD SPECIMENOrdering Facility: [facility] Address: [address] [place] [address] Performed By: #### 2 4344-4 ####[facility] LABIA [id number] [place] [address] [place] Sodium [Moles/Vol] 136 mmol/L Normal 136-144 [facility] Comment on above: Order Comment: Speci men Type: VENOUS BLOOD SPECIMENOrdering Facility: [facility] Address: [address] [place] [address] Performed By: #### 2 4344-4 ####[facility] LABCLIA [id number] [place] [address] [place] LDH SerPl-cCncon 04-11-2024 LDH [Catalytic activity/Vol] 160 U/L Normal 135-225 [facility] Comment on above: Order Comment: Speci men Type: BLOOD SPECIMENOrdering Facility: [facility] Address: [address] [place] [address] Performed By: #### 2 4323-8, 2532-0 ####[facility] LABCLIA [id number] [place] [address] [place] Magnesium SerPl-mCncon 04-11 Magnesium [Mass/Vol] 1.7 mg/dL Normal 1.7-2.3 [facility] Comment on above: Order Comment: Speci men Type: BLOOD SPECIMENOrdering Facility: [facility] Address: [address] [place] [address] Performed By: #### 1 9123-9, 277-1, 3083-1, 2276-02, 1988-03 ####[facility] LABCLIA [id number] [place] [address] [place] NURSING PROGon 04-11-2024 NURSING PROG Normal [facility] Phosphate SerPl-mCncon 04-11 Phosphate [Mass/Vol] 2.3 mg/dL Low 2.7-4.8 [facility] Comment on above: Order Comment: Speci men Type: BLOOD SPECIMENOrdering Facility: [facility] Address: [address] [place] [address] Performed By: #### 1 9123-9, 2777-1, 3083-1, 2276-02, 1988-03 ####[facility] LABCLIA [id number] [place] [address] [place] TYPE + SCREENon 04-11-2024 ABO B Normal [facility] Comment on above: Order Comment: Speci men Type: BLOOD SPECIMENOrdering Facility: [facility] Address: [address] [place] [address] Performed By: #### T SCR ####[facility] BLOOD BANKCLIA [id number] [place] [address] [place] HISTORICAL AB SCR STATUS Negative Normal [facility] Comment on above: Order Comment: Speci men Type: BLOOD SPECIMENOrdering Facility: [facility] Address: [address] [place] [address] Performed By: #### T SCR ####[facility] BLOOD BANKCLIA [id number] [place] [address] [place] Rh Nom (Bld) Negative Normal [facility] Comment on above: Order Comment: Speci men Type: BLOOD SPECIMENOrdering Facility: [facility] Address: [address] [place] [address] Performed By: #### T SCR ####[facility] BLOOD BANKIA [id number] TYPE AND SCREEN EXPIRATION 04/14/2024 23:59 Normal [facility] Comment on above: Order Comment: Speci men Type: BLOOD SPECIMENOrdering Facility: [facility] Address: [address] [place] [address] Performed By: #### T SCR ####[facility] BLOOD BANKCLIA [id number] [place] [address] [place] Urate SerPl-mCncon 4 Urate [Mass/Vol] 1.5 mg/dL Low 4.0-8.1 [facility] Comment on above: Order Comment: Speci men Type: BLOOD SPECIMENOrdering Facility: [facility] Address: [address] [place] [address] Performed By: #### 1 9123-9, 2777-1, 3084-1, 2276-4, 1988- ####[facility] LABCLIA [id number] [place] [address] [place] Bacteria Bld Culton 04-10-20 24 Bacteria identified Cx Nom (Bld) CULTURE, BLOOD: No growth 5 days Normal [facility] Comment on above: Performed By: #### 6 00-7 ####[facility] LABCLIA [id number] [place] [address] [place] Bacteria identified Cx Nom (Bld) CULTURE, BLOOD: No growth 5 days Normal [facility] Comment on above: Performed By: #### 6 00-7 ####[facility] LABCLIA [id number] [place] [address] [place] CBC W Auto Differential pane l (Bld)on 04-10-2024 Basophils (Bld) [#/Vol] Normal [facility] Comment on above: Order Comment: Speci men Type: BLOOD SPECIMENOrdering Facility: [facility] Address: [address] [place] [address] Result Comment: Too Few Cells To Do Differential. Performed By: #### 5 7021-8 ####[facility] LABIA [id number] [place] [address] [place] Basophils/100 WBC (Bld) Normal [facility] Comment on above: Order Comment: Speci men Type: BLOOD SPECIMENOrdering Facility: [facility] Address: [address] [place] [address] Result Comment: Too Few Cells To Do Differential. Performed By: #### 5 7021-8 ####[facility] LABIA [id number] [place] [address] [place] Differential cell count method Nom (Bld) Auto Normal [facility] Comment on above: Order Comment: Speci men Type: BLOOD SPECIMENOrdering Facility: [facility] Address: [address] [place] [address] Performed By: #### 5 7021-8 ####[facility] LABIA [id number] [place] [address] [place] Eosinophils (Bld) [#/Vol] Normal [facility] Comment on above: Order Comment: Speci men Type: BLOOD SPECIMENOrdering Facility: [facility] Address: [address] [place] [address] Result Comment: Too Few Cells To Do Differential. Performed By: #### 5 7021-8 ####[facility] LABCLIA [id number] [place] [address] [place] Eosinophils/100 WBC (Bld) Normal [facility] Comment on above: Order Comment: Speci men Type: BLOOD SPECIMENOrdering Facility: [facility] Address: [address] [place] [address] Result Comment: Too Few Cells To Do Differential. Performed By: #### 5 7021-8 ####[facility] LABCLIA [id number] [place] [address] [place] Erythrocyte distribution width (RBC) [Ratio] 13.6 % Normal 11.5-15.0 [facility] Comment on above: Order Comment: Speci men Type: BLOOD SPECIMENOrdering Facility: [facility] Address: [address] [place] [address] Performed By: #### 5 7021-8 ####[facility] LABIA [id number] [place] [address] [place] Hematocrit (Bld) [Volume fraction] 33.7 % Low 39.0-51.0 [facility] Comment on above: Order Comment: Speci men Type: BLOOD SPECIMENOrdering Facility: [facility] Address: [address] [place] [address] Performed By: #### 5 7021-8 ####[facility] LABCLIA [id number] [place] [address] [place] Hemoglobin (Bld) [Mass/Vol] 11.8 g/dL Low 13.0-17.0 [facility] Comment on above: Order Comment: Speci men Type: BLOOD SPECIMENOrdering Facility: [facility] Address: [address] [place] [address] Performed By: #### 5 7021-8 ####[facility] LABIA [id number] [place] [id number] [place] Immature granulocytes (Bld) [#/Vol] Normal [facility] Comment on above: Order Comment: Speci men Type: BLOOD SPECIMENOrdering Facility: [facility] Address: [address] [place] [address] Result Comment: Too Few Cells To Do Differential. Performed By: #### 5 7021-8 ####[facility] LABCLIA [id number] [place] [address] [place] Immature granulocytes/100 WBC (Bld) Normal [facility] Comment on above: Order Comment: Speci men Type: BLOOD SPECIMENOrdering Facility: [facility] Address: [address] [place] [address] Result Comment: Too Few Cells To Do Differential. Performed By: #### 5 7021-8 ####[facility] LABCLIA [id number] [place] [address] [place] Lymphocytes (Bld) [#/Vol] Normal [facility] Comment on above: Order Comment: Speci men Type: BLOOD SPECIMENOrdering Facility: [facility] Address: [address] [place] [address] Result Comment: Too Few Cells To Do Differential. Performed By: #### 5 7021-8 ####[facility] LABCLIA [id number] [place] [address] [place] Lymphocytes/100 WBC (Bld) Normal [facility] Comment on above: Order Comment: Speci men Type: BLOOD SPECIMENOrdering Facility: [facility] Address: [address] [place] [address] Result Comment: Too Few Cells To Do Differential. Performed By: #### 5 7021-8 ####[facility] LABCLIA [id number] [place] [address] [place] MCH (RBC) [Entitic mass] 31.1 pg Normal 26.0-34.0 [facility] Comment on above: Order Comment: Speci men Type: BLOOD SPECIMENOrdering Facility: [facility] Address: [address] [place] [address] Performed By: #### 5 7021-8 ####[facility] LABCLIA [id number] [place] [address] [place] MCHC (RBC) [Mass/Vol] 35.0 g/dL Normal 30.5-36.0 [facility] Comment on above: Order Comment: Speci men Type: BLOOD SPECIMENOrdering Facility: [facility] Address: [address] [place] [address] Performed By: #### 5 7021-8 ####[facility] LABCLIA [id number] [place] [address] [place] MCV (RBC) [Entitic vol] 88.9 fL Normal 80.0-100.0 [facility] Comment on above: Order Comment: Speci men Type: BLOOD SPECIMENOrdering Facility: [facility] Address: [address] [place] [address] Performed By: #### 5 7021-8 ####[facility] LABCLIA [id number] [place] [address] [place] Monocytes (Bld) [#/Vol] Normal [facility] Comment on above: Order Comment: Speci men Type: BLOOD SPECIMENOrdering Facility: [facility] Address: [address] [place] [address] Result Comment: Too Few Cells To Do Differential. Performed By: #### 5 7021-8 ####[facility] LABCLIA [id number] [place] [address] [place] Monocytes/100 WBC (Bld) Normal [facility] Comment on above: Order Comment: Speci men Type: BLOOD SPECIMENOrdering Facility: [facility] Address: [address] [place] [address] Result Comment: Too Few Cells To Do Differential. Performed By: #### 5 7021-8 ####[facility] LABCLIA [id number] [place] [address] [place] Neutrophils (Bld) [#/Vol] Normal [facility] Comment on above: Order Comment: Speci men Type: BLOOD SPECIMENOrdering Facility: [facility] Address: [address] [place] [address] Result Comment: Too Few Cells To Do Differential. Performed By: #### 5 7021-8 ####[facility] LABCLIA [id number] [place] [address] [place] Neutrophils/100 WBC (Bld) Normal [facility] Comment on above: Order Comment: Speci men Type: BLOOD SPECIMENOrdering Facility: [facility] Address: [address] [place] [address] Result Comment: Too Few Cells To Do Differential. Performed By: #### 5 7021-8 ####[facility] LABIA [id number] [place] [address] [place] Nucleated RBC (Bld) [#/Vol] 10*3/uL Normal <0.01 [facility] Comment on above: Order Comment: Speci men Type: BLOOD SPECIMENOrdering Facility: [facility] Address: [address] [place] [address] Performed By: #### 5 7021-8 ####[facility] LABIA [id number] [place] [address] [place] Nucleated RBC/100 WBC (Bld) [Ratio] 0.0 /100 WBC Normal [facility] Comment on above: Order Comment: Speci men Type: BLOOD SPECIMENOrdering Facility: [facility] Address: [address] [place] [address] Performed By: #### 5 7021-8 ####[facility] LABCLIA [id number] [place] [address] [place] Platelet mean volume (Bld) [Entitic vol] 9.5 fL Normal 9.0-12.7 [facility] Comment on above: Order Comment: Speci men Type: BLOOD SPECIMENOrdering Facility: [facility] Address: [address] [place] [address] Performed By: #### 5 7021-8 ####[facility] LABCLIA [id number] [place] [address] [place] Platelets (Bld) [#/Vol] 59 10*3/uL Low 150-400 [facility] Comment on above: Order Comment: Speci men Type: BLOOD SPECIMENOrdering Facility: [facility] Address: [address] [place] [address] Result Comment: No c lot detected. Performed By: #### 5 7021-8 ####[facility] LABCLIA [id number] [place] [address] [place] RBC (Bld) [#/Vol] 3.79 10*6/uL Low 4.20-6.00 [facility] Comment on above: Order Comment: Speci men Type: BLOOD SPECIMENOrdering Facility: [facility] Address: [address] [place] [address] Performed By: #### 5 7021-8 ####[facility] LABCLIA [id number] [place] [address] [place] WBC (Bld) [#/Vol] 0.21 10*3/uL Low 3.70-11.00 [facility] Comment on above: Order Comment: Speci men Type: BLOOD SPECIMENOrdering Facility: [facility] Address: [address] [place] [address] Result Comment: No c lot detected. Too Few Cells To Do Differential Performed By: #### 5 7021-8 ####[facility] LABCLIA [id number] [place] [address] [place] CRP SerPl-mCncon 04-10-2024 CRP [Mass/Vol] 5.5 mg/dL High <0.9 [facility] Comment on above: Order Comment: Speci men Type: BLOOD SPECIMENOrdering Facility: [facility] Address: [address] [place] [address] Performed By: #### 1 988-5, 91826-8, 2777-1, 3084-1, 2276-4 ####[facility] LABCLIA [id number] [place] [address] [place] Comprehensive metabolic 2000 panelon 04-10-2024 Albumin [Mass/Vol] 3.5 g/dL Low 3.9-4.9 [facility] Comment on above: Order Comment: Speci men Type: BLOOD SPECIMENOrdering Facility: [facility] Address: [address] [place] [address] Performed By: #### 2 4323-8, 2532-0 ####[facility] LABCLIA [id number] [place] [address] [place] ALP [Catalytic activity/Vol] 134 U/L High 38-113 [facility] Comment on above: Order Comment: Speci men Type: BLOOD SPECIMENOrdering Facility: [facility] Address: [address] [place] [address] Performed By: #### 2 4323-8, 2532-0 ####[facility] LABCLIA [id number] [place] [address] [place] ALT [Catalytic activity/Vol] 15 U/L Normal 10-54 [facility] Comment on above: Order Comment: Speci men Type: BLOOD SPECIMENOrdering Facility: [facility] Address: [address] [place] [address] Performed By: #### 2 4323-8, 2532-0 ####[facility] LABCLIA [id number] [place] [id number] [place] Anion gap [Moles/Vol] 12 mmol/L Normal 8-15 [facility] Comment on above: Order Comment: Speci men Type: BLOOD SPECIMENOrdering Facility: [facility] Address: [address] [place] [address] Performed By: #### 2 4323-8, 2531-0 ####[facility] LABIA [id number] [place] [address] [place] AST [Catalytic activity/Vol] 11 U/L Low 14-40 [facility] Comment on above: Order Comment: Speci men Type: BLOOD SPECIMENOrdering Facility: [facility] Address: [address] [place] [address] Performed By: #### 2 432-8, 2531-0 ####[facility] LABIA [id number] [place] [address] [place] Bilirubin [Mass/Vol] 0.4 mg/dL Normal 0.2-1.3 [facility] Comment on above: Order Comment: Speci men Type: BLOOD SPECIMENOrdering Facility: [facility] Address: [address] [place] [address] Performed By: #### 2 432-8, 2531-0 ####[facility] LABIA [id number] [place] [address] [place] Calcium [Mass/Vol] 8.4 mg/dL Low 8.5-10.2 [facility] Comment on above: Order Comment: Speci men Type: BLOOD SPECIMENOrdering Facility: [facility] Address: [address] [place] [address] Performed By: #### 2 432-8, 2531-0 ####[facility] LABIA [id number] [place] [id number] [place] Chloride [Moles/Vol] 106 mmol/L Normal 98-107 [facility] Comment on above: Order Comment: Speci men Type: BLOOD SPECIMENOrdering Facility: [facility] Address: [address] [place], [place] [address] Performed By: #### 2 432-8, 2531-0 ####[facility] LABCLIA [id number] [place] [address] [place] CO2 [Moles/Vol] 21 mmol/L Low 22-30 [facility] Comment on above: Order Comment: Speci men Type: BLOOD SPECIMENOrdering Facility: [facility] Address: [address] [place] [address] Performed By: #### 2 4323-8, 2531-0 ####[facility] LABIA [id number] [place] [address] [place] Creatinine [Mass/Vol] 1.25 mg/dL High 0.73-1.22 [facility] Comment on above: Order Comment: Speci men Type: BLOOD SPECIMENOrdering Facility: [facility] Address: [address] [place] [address] Performed By: #### 2 43238, 2531-0 ####[facility] LABIA [id number] [place] [address] [place] Creatinine and Glomerular filtration rate.predicted panel (S/P/Bld) 63 mL/min/1.73m??? Normal >=60 [facility] Comment on above: Order Comment: Speci men Type: BLOOD SPECIMENOrdering Facility: [facility] Address: [address] [place] [address] Result Comment: Carol mated Glomerular Filtration Rate [...] GFR. Performed By: #### 2 4323-8, 2531-0 ####[facility] LABIA [id number] [place] [id number] [place] Glucose [Mass/Vol] 95 mg/dL Normal 74-99 [facility] Comment on above: Order Comment: Sara randle Type: BLOOD SPECIMENOrdering Facility: [facility] Address: [address] [place] [address] Result Comment: The [place] [employer] (ADA) provides guidance for cutoff [...] Standards of Medical Care in Diabetes 2016, [place] [employer]. Diabetes Care. 2016.39(Suppl 1). Performed By: #### 2 4323-8, 2-0 ####[facility] LABCLIA [id number] [place] [address] [place] Potassium [Moles/Vol] 3.7 mmol/L Normal 3.7-5.1 [facility] Comment on above: Order Comment: Sara randle Type: BLOOD SPECIMENOrdering Facility: [facility] Address: [address] [place] [address] Performed By: #### 2 4323-8, 2531-0 ####[facility] LABCLIA [id number] [place] [address] [place] Protein [Mass/Vol] 5.7 g/dL Low 6.3-8.0 [facility] Comment on above: Order Comment: Sara randle Type: BLOOD SPECIMENOrdering Facility: [facility] Address: [address] [place] [address] Performed By: #### 2 4323-8, 2531-0 ####[facility] LABCLIA [id number] [place] [address] [place] Sodium [Moles/Vol] 139 mmol/L Normal 136-144 [facility] Comment on above: Order Comment: Speci men Type: BLOOD SPECIMENOrdering Facility: [facility] Address: [address] [place] [address] Performed By: #### 2 4323-8, 2531-0 ####[facility] LABIA [id number] [place] [address] [place] Urea nitrogen [Mass/Vol] 8 mg/dL Low 9-24 [facility] Comment on above: Order Comment: Speci men Type: BLOOD SPECIMENOrdering Facility: [facility] Address: [address] [place] [address] Performed By: #### 2 4323-8, 2531-0 ####[facility] LABIA [id number] [place] [address] [place] Ferritin SerPl-mCncon 2023 Ferritin [Mass/Vol] 649.0 ng/mL High 30.3-565.7 [facility] Comment on above: Order Comment: Speci men Type: BLOOD SPECIMENOrdering Facility: [facility] Address: [address] [place] [address] Performed By: #### 1 988-5, 22043-5, 2777-1, 3084-1, 2276-4 ####[facility] LABIA [id number] [place] [address] [place] LDH SerPl-cCncon 04-10-2024 LDH [Catalytic activity/Vol] 144 U/L Normal 135-225 [facility] Comment on above: Order Comment: Speci men Type: BLOOD SPECIMENOrdering Facility: [facility] Address: [address] [place] [address] Performed By: #### 2 4323-8, 0 ####[facility] LABIA [id number] [place] [address] [place] Magnesium SerPl-mCncon 04-10 Magnesium [Mass/Vol] 1.9 mg/dL Normal 1.7-2.3 [facility] Comment on above: Order Comment: Speci men Type: BLOOD SPECIMENOrdering Facility: [facility] Address: [address] [place], [place] [address] Performed By: #### 1 988-5, 62923-3, 7-1, 3084-1, 6-4 ####[facility] LABCLIA [id number] [place] [id number] [place] NURSING PROGon 04-10-2024 NURSING PROG Normal [facility] Phosphate SerPl-mCncon 04-10 Phosphate [Mass/Vol] 3.3 mg/dL Normal 2.7-4.8 [facility] Comment on above: Order Comment: Speci men Type: BLOOD SPECIMENOrdering Facility: [facility] Address: [address] [place] [address] Performed By: #### 1 988-5, 29297-1, 2776-1, 308-1, 2275-4 ####[facility] LABCLIA [id number] [place] [address] [place] Urate SerPl-mCncon Urate [Mass/Vol] 1.5 mg/dL Low 4.0-8.1 [facility] Comment on above: Order Comment: Speci men Type: BLOOD SPECIMENOrdering Facility: [facility] Address: [address] [place] [address] Performed By: #### 1 988-5, 89624-6, 7-1, 3084-1, 6-4 ####[facility] LABIA [id number] [place] [id number] [place] XR CHEST 1V FRONTAL PORTon 0 04-10-2024 XR CHEST 1V FRONTAL PORT Normal [facility] CBC W Auto Differential pane l (Bld)on 04-09-2024 Basophils (Bld) [#/Vol] Normal [facility] Comment on above: Order Comment: Speci men Type: BLOOD SPECIMENOrdering Facility: [facility] Address: [address] [place] [address] Result Comment: Too Few Cells To Do Differential. Performed By: #### 5 7021-8 ####[facility] LABCLIA [id number] [place] [address] [place] Basophils/100 WBC (Bld) Normal [facility] Comment on above: Order Comment: Speci men Type: BLOOD SPECIMENOrdering Facility: [facility] Address: [address] [place] [address] Result Comment: Too Few Cells To Do Differential. Performed By: #### 5 7021-8 ####[facility] LABCLIA [id number] [place] [address] [place] Differential cell count method Nom (Bld) Auto Normal [facility] Comment on above: Order Comment: Speci men Type: BLOOD SPECIMENOrdering Facility: [facility] Address: [address] [place] [address] Performed By: #### 5 7021-8 ####[facility] LABCLIA [id number] [place] [address] [place] Eosinophils (Bld) [#/Vol] Normal [facility] Comment on above: Order Comment: Speci men Type: BLOOD SPECIMENOrdering Facility: [facility] Address: [address] [place] [address] Result Comment: Too Few Cells To Do Differential. Performed By: #### 5 7021-8 ####[facility] LABCLIA [id number] [place] [address] [place] Eosinophils/100 WBC (Bld) Normal [facility] Comment on above: Order Comment: Speci men Type: BLOOD SPECIMENOrdering Facility: [facility] Address: [address] [place] [address] Result Comment: Too Few Cells To Do Differential. Performed By: #### 5 7021-8 ####[facility] LABCLIA [id number] [place] [address] [place] Erythrocyte distribution width (RBC) [Ratio] 13.4 % Normal 11.5-15.0 [facility] Comment on above: Order Comment: Speci men Type: BLOOD SPECIMENOrdering Facility: [facility] Address: [address] [place] [address] Performed By: #### 5 7021-8 ####[facility] LABCLIA [id number] [place] [address] [place] Hematocrit (Bld) [Volume fraction] 33.3 % Low 39.0-51.0 [facility] Comment on above: Order Comment: Speci men Type: BLOOD SPECIMENOrdering Facility: [facility] Address: [address] [place] [address] Performed By: #### 5 7021-8 ####[facility] LABIA [id number] [place] [address] [place] Hemoglobin (Bld) [Mass/Vol] 11.3 g/dL Low 13.0-17.0 [facility] Comment on above: Order Comment: Speci men Type: BLOOD SPECIMENOrdering Facility: [facility] Address: [address] [place] [address] Performed By: #### 5 7021-8 ####[facility] LABIA [id number] [place] [address] [place] Immature granulocytes (Bld) [#/Vol] Normal [facility] Comment on above: Order Comment: Speci men Type: BLOOD SPECIMENOrdering Facility: [facility] Address: [address] [place] [address] Result Comment: Too Few Cells To Do Differential. Performed By: #### 5 7021-8 ####[facility] LABIA [id number] [place] [address] [place] [place] Immature granulocytes/100 WBC (Bld) Normal [facility] Comment on above: Order Comment: Speci men Type: BLOOD SPECIMENOrdering Facility: [facility] Address: [address] [place] [address] Result Comment: Too Few Cells To Do Differential. Performed By: #### 5 7021-8 ####[facility] LABCLIA [id number] [place] [address] [place] Lymphocytes (Bld) [#/Vol] Normal [facility] Comment on above: Order Comment: Speci men Type: BLOOD SPECIMENOrdering Facility: [facility] Address: [address] [place] [address] Result Comment: Too Few Cells To Do Differential. Performed By: #### 5 7021-8 ####[facility] LABCLIA [id number] [place] [address] [place] Lymphocytes/100 WBC (Bld) Normal [facility] Comment on above: Order Comment: Speci men Type: BLOOD SPECIMENOrdering Facility: [facility] Address: [address] [place] [address] Result Comment: Too Few Cells To Do Differential. Performed By: #### 5 7021-8 ####[facility] LABCLIA [id number] [place] [address] [place] MCH (RBC) [Entitic mass] 30.4 pg Normal 26.0-34.0 [facility] Comment on above: Order Comment: Speci men Type: BLOOD SPECIMENOrdering Facility: [facility] Address: [address] [place] [address] Performed By: #### 5 7021-8 ####[facility] LABCLIA [id number] [place] [address] [place] MCHC (RBC) [Mass/Vol] 33.9 g/dL Normal 30.5-36.0 [facility] Comment on above: Order Comment: Speci men Type: BLOOD SPECIMENOrdering Facility: [facility] Address: [address] [place] [address] Performed By: #### 5 7021-8 ####[facility] LABCLIA [id number] [place] [address] [place] MCV (RBC) [Entitic vol] 89.5 fL Normal 80.0-100.0 [facility] Comment on above: Order Comment: Speci men Type: BLOOD SPECIMENOrdering Facility: [facility] Address: [address] [place] [address] Performed By: #### 5 7021-8 ####[facility] LABCLIA [id number] [place] [address] [place] Monocytes (Bld) [#/Vol] Normal [facility] Comment on above: Order Comment: Speci men Type: BLOOD SPECIMENOrdering Facility: [facility] Address: [address] [place] [address] Result Comment: Too Few Cells To Do Differential. Performed By: #### 5 7021-8 ####[facility] LABCLIA [id number] [place] [address] [place] Monocytes/100 WBC (Bld) Normal [facility] Comment on above: Order Comment: Speci men Type: BLOOD SPECIMENOrdering Facility: [facility] Address: [address] [place] [address] Result Comment: Too Few Cells To Do Differential. Performed By: #### 5 7021-8 ####[facility] LABCLIA [id number] [place] [address] [place] Neutrophils (Bld) [#/Vol] Normal [facility] Comment on above: Order Comment: Speci men Type: BLOOD SPECIMENOrdering Facility: [facility] Address: [address] [place] [address] Result Comment: Too Few Cells To Do Differential. Performed By: #### 5 7021-8 ####[facility] LABCLIA [id number] [place] [address] [place] Neutrophils/100 WBC (Bld) Normal [facility] Comment on above: Order Comment: Speci men Type: BLOOD SPECIMENOrdering Facility: [facility] Address: [address] [place] [address] Result Comment: Too Few Cells To Do Differential. Performed By: #### 5 7021-8 ####[facility] LABCLIA [id number] [place] [address] [place] Nucleated RBC (Bld) [#/Vol] 10*3/uL Normal <0.01 [facility] Comment on above: Order Comment: Speci men Type: BLOOD SPECIMENOrdering Facility: [facility] Address: [address] [place] [address] Performed By: #### 5 7021-8 ####[facility] LABCLIA [id number] [place] [address] [place] Nucleated RBC/100 WBC (Bld) [Ratio] 0.0 /100 WBC Normal [facility] Comment on above: Order Comment: Speci men Type: BLOOD SPECIMENOrdering Facility: [facility] Address: [address] [place] [address] Performed By: #### 5 7021-8 ####[facility] LABCLIA [id number] [place] [address] [place] Platelet mean volume (Bld) [Entitic vol] 9.4 fL Normal 9.0-12.7 [facility] Comment on above: Order Comment: Speci men Type: BLOOD SPECIMENOrdering Facility: [facility] Address: [address] [place] [address] Performed By: #### 5 7021-8 ####[facility] LABCLIA [id number] [place] [address] [place] Platelets (Bld) [#/Vol] 81 10*3/uL Low 150-400 [facility] Comment on above: Order Comment: Speci men Type: BLOOD SPECIMENOrdering Facility: [facility] Address: [address] [place] [address] Result Comment: Resu lts checked and verified.No clot detected. Performed By: #### 5 7021-8 ####[facility] LABCLIA [id number] [place] [address] [place] RBC (Bld) [#/Vol] 3.72 10*6/uL Low 4.20-6.00 [facility] Comment on above: Order Comment: Speci men Type: BLOOD SPECIMENOrdering Facility: [facility] Address: [address] [place] [address] Performed By: #### 5 7021-8 ####[facility] LABCLIA [id number] [place] [address] [place] WBC (Bld) [#/Vol] 0.48 10*3/uL Low 3.70-11.00 [facility] Comment on above: Order Comment: Speci men Type: BLOOD SPECIMENOrdering Facility: [facility] Address: [address] [place] [address] Result Comment: Resu lts checked and verified.No clot detected. Performed By: #### 5 7021-8 ####[facility] LABCLIA [id number] [place] [address] [place] CRP SerPl-mCncon 04-09-2024 CRP [Mass/Vol] 11.8 mg/dL High <0.9 [facility] Comment on above: Order Comment: Speci men Type: BLOOD SPECIMENOrdering Facility: [facility] Address: [address] [place] [address] Performed By: #### 2 276-4, 18005-4, 2777-1, 3084-1, 1988- ####[facility] LABCLIA [id number] [place] [id number] [place] Comprehensive metabolic 2000 panelon 04-09-2024 Albumin [Mass/Vol] 3.4 g/dL Low 3.9-4.9 [facility] Comment on above: Order Comment: Speci men Type: BLOOD SPECIMENOrdering Facility: [facility] Address: [address] [place] [address] Performed By: #### 2 4323-8, 2531-0 ####[facility] LABCLIA [id number] [facility] [address] [place] ALP [Catalytic activity/Vol] 140 U/L High 38-113 [facility] Comment on above: Order Comment: Speci men Type: BLOOD SPECIMENOrdering Facility: [facility] Address: [address] [place] [address] Performed By: #### 2 4323-8, 2531-0 ####[facility] LABCLIA [id number] [place] [address] [place] ALT [Catalytic activity/Vol] 16 U/L Normal 10-54 [facility] Comment on above: Order Comment: Speci men Type: BLOOD SPECIMENOrdering Facility: [facility] Address: [address] [place] [address] Performed By: #### 2 4323-8, 2531-0 ####[facility] LABCLIA [id number] [facility] [place] [address] [place] Anion gap [Moles/Vol] 9 mmol/L Normal 8-15 [facility] Comment on above: Order Comment: Speci men Type: BLOOD SPECIMENOrdering Facility: [facility] Address: [address] [place] [address] Performed By: #### 2 4323-8, 2532-0 ####[facility] LABCLIA [id number] [place] [address] [place] AST [Catalytic activity/Vol] 15 U/L Normal 14-40 [facility] Comment on above: Order Comment: Speci men Type: BLOOD SPECIMENOrdering Facility: [facility] Address: [address] [place] [address] Performed By: #### 2 4328, 2531-0 ####[facility] LABCLIA [id number] [place] [address] [place] Bilirubin [Mass/Vol] 0.4 mg/dL Normal 0.2-1.3 [facility] Comment on above: Order Comment: Speci men Type: BLOOD SPECIMENOrdering Facility: [facility] Address: [address] [place] [address] Performed By: #### 2 4328, 2531-0 ####[facility] LABCLIA [id number] [place] [address] [place] Calcium [Mass/Vol] 8.4 mg/dL Low 8.5-10.2 [facility] Comment on above: Order Comment: Speci men Type: BLOOD SPECIMENOrdering Facility: [facility] Address: [address] [place] [address] Performed By: #### 2 4328, 2531-0 ####[facility] LABCLIA [id number] [place] [address] [place] Chloride [Moles/Vol] 108 mmol/L High 98-107 [facility] Comment on above: Order Comment: Speci men Type: BLOOD SPECIMENOrdering Facility: [facility] Address: [address] [place], [place] [address] Performed By: #### 2 4328, 2531-0 ####[facility] LABCLIA [id number] [place] [id number] [place] CO2 [Moles/Vol] 23 mmol/L Normal 22-30 [facility] Comment on above: Order Comment: Speci men Type: BLOOD SPECIMENOrdering Facility: [facility] Address: [address] [place], [place] [address] Performed By: #### 2 4328, 2531-0 ####[facility] LABCLIA [id number] [place] [address] [place] Creatinine [Mass/Vol] 1.14 mg/dL Normal 0.73-1.22 [facility] Comment on above: Order Comment: Sara randle Type: BLOOD SPECIMENOrdering Facility: [facility] Address: [address] [place] [address] Performed By: #### 2 4323-8, 2531-0 ####[facility] [id number] [address] Creatinine and Glomerular filtration rate.predicted panel (S/P/Bld) 70 mL/min/1.73m??? Normal >=60 [facility] Comment on above: Order Comment: Sara randle Type: BLOOD SPECIMENOrdering Facility: [facility] Address: [address] [place] [address] Result Comment: Carol mated Glomerular Filtration Rate [...] GFR. Performed By: #### 2 4323-8, 0 ####[facility] LABIA [id number] [place] [address] [place] Glucose [Mass/Vol] 94 mg/dL Normal 74-99 [facility] Comment on above: Order Comment: Sara randle Type: BLOOD SPECIMENOrdering Facility: [facility] Address: [address] [place] [address] Result Comment: The [place] [employer] (ADA) provides guidance for cutoff [...] Standards of Medical Care in Diabetes 2016, [place] [employer]. Diabetes Care. 2016.39(Suppl 1). Performed By: #### 2 43238, 2531-0 ####[facility] LABCLIA [id number] [place] [address] [place] Potassium [Moles/Vol] 3.9 mmol/L Normal 3.7-5.1 [facility] Comment on above: Order Comment: Speci men Type: BLOOD SPECIMENOrdering Facility: [facility] Address: [address] [place] [address] Performed By: #### 2 4328, 0 ####[facility] LABCLIA [id number] [place] [address] [place] Protein [Mass/Vol] 5.5 g/dL Low 6.3-8.0 [facility] Comment on above: Order Comment: Speci men Type: BLOOD SPECIMENOrdering Facility: [facility] Address: [address] [place] [address] Performed By: #### 2 4328, 0 ####[facility] LABCLIA [id number] [place] [address] [place] Sodium [Moles/Vol] 140 mmol/L Normal 136-144 [facility] Comment on above: Order Comment: Speci men Type: BLOOD SPECIMENOrdering Facility: [facility] Address: [address] [place] [address] Performed By: #### 2 4328, 0 ####[facility] LABCLIA [id number] [address] [address] [place] Urea nitrogen [Mass/Vol] 11 mg/dL Normal 9-24 [facility] Comment on above: Order Comment: Speci men Type: BLOOD SPECIMENOrdering Facility: [facility] Address: [address] [place], [place] [address] Performed By: #### 2 4323-8, 2532-0 ####[facility] LABCLIA [id number] [place] [id number] [place] Ferritin SerPl-mCncon 2023 Ferritin [Mass/Vol] 522.0 ng/mL Normal 30.3-565.7 [facility] Comment on above: Order Comment: Speci men Type: BLOOD SPECIMENOrdering Facility: [facility] Address: [address] [place] [address] Performed By: #### 2 276-4, 81685-6, 2776-11, 3083-11, 1988-03 ####[facility] LABCLIA [id number] [place] [address] [place] LDH SerPl-cCncon 04-09-2024 LDH [Catalytic activity/Vol] 133 U/L Low 135-225 [facility] Comment on above: Order Comment: Speci men Type: BLOOD SPECIMENOrdering Facility: [facility] Address: [address] [place] [address] Performed By: #### 2 4323-8, 2532-0 ####[facility] LABCLIA [id number] [place] [address] [place] MEDICAL EMERon 04-09-2024 MEDICAL FILOMENA Normal [facility] Magnesium SerPl-mCncon 04-09 Magnesium [Mass/Vol] 2.1 mg/dL Normal 1.7-2.3 [facility] Comment on above: Order Comment: Speci men Type: BLOOD SPECIMENOrdering Facility: [facility] Address: [address] [place] [address] Performed By: #### 2 276-4, 57069-9, 2776-1, 3083-11, 1988-03 ####[facility] LABCLIA [id number] [place] [id number] [place] Phosphate SerPl-ncon 04-09 Phosphate [Mass/Vol] 2.7 mg/dL Normal 2.7-4.8 [facility] Comment on above: Order Comment: Speci men Type: BLOOD SPECIMENOrdering Facility: [facility] Address: [address] [place] [address] Performed By: #### 2 276-4, 97808-7, 2776-1, 3083-11, 1988-03 ####[facility] LABCLIA [id number] [place] [id number] [place] Urate [facility] Urate [Mass/Vol] 1.8 mg/dL Low 4.0-8.1 [facility] Comment on above: Order Comment: Speci men Type: BLOOD SPECIMENOrdering Facility: [facility] Address: [address] [place] [address] Performed By: #### 2 276-4, 12819-3, 2776-1, 3083-11, 1988-03 ####[facility] LABCLIA [id number] [place] [id number] [place] Bacteria Bld Culton 04-08-20 24 Bacteria identified Cx Nom (Bld) CULTURE, BLOOD: No growth 5 days Normal [facility] Comment on above: Performed By: #### 6 00-7 ####[facility] LABCLIA [id number] [place] [id number] [place] Bacteria identified Cx Nom (Bld) CULTURE, BLOOD: No growth 5 days Normal [facility] Comment on above: Performed By: #### 6 00-7 ####[facility] LABCLIA [id number] [place] [id number] [place] CASE MANAGEMon 04-08-2024 CASE MANAGEM Normal [facility] CBC W Auto Differential pane l (Bld)on 04-08-2024 Basophils (Bld) [#/Vol] 0.00 10*3/uL Normal <0.11 [facility] Comment on above: Order Comment: Speci men Type: BLOOD SPECIMENOrdering Facility: [facility] Address: [address] [place] [address] Performed By: #### 5 7021-8 ####[facility] LABCLIA [id number] [place] [address] [place] Basophils/100 WBC (Bld) 0.0 % Normal [facility] Comment on above: Order Comment: Speci men Type: BLOOD SPECIMENOrdering Facility: [facility] Address: [address] [place] [address] Performed By: #### 5 7021-8 ####[facility] LABCLIA [id number] [place] [address] [place] Differential cell count method Nom (Bld) Manual Normal [facility] Comment on above: Order Comment: Speci men Type: BLOOD SPECIMENOrdering Facility: [facility] Address: [address] [place] [address] Performed By: #### 5 7021-8 ####[facility] LABCLIA [id number] [place] [address] [place] Eosinophils (Bld) [#/Vol] 0.03 10*3/uL Normal <0.46 [facility] Comment on above: Order Comment: Speci men Type: BLOOD SPECIMENOrdering Facility: [facility] Address: [address] [place] [address] Performed By: #### 5 7021-8 ####[facility] LABCLIA [id number] [place] [address] [place] Eosinophils/100 WBC (Bld) 0.9 % Normal [facility] Comment on above: Order Comment: Speci men Type: BLOOD SPECIMENOrdering Facility: [facility] Address: [address] [place] [address] Performed By: #### 5 7021-8 ####[facility] LABCLIA [id number] [place] [address] [place] Erythrocyte distribution width (RBC) [Ratio] 13.4 % Normal 11.5-15.0 [facility] Comment on above: Order Comment: Speci men Type: BLOOD SPECIMENOrdering Facility: [facility] Address: [address] [place] [address] Performed By: #### 5 7021-8 ####[facility] LABIA [id number] [place] [address] [place] Hematocrit (Bld) [Volume fraction] 35.3 % Low 39.0-51.0 [facility] Comment on above: Order Comment: Speci men Type: BLOOD SPECIMENOrdering Facility: [facility] Address: [address] [place] [address] Performed By: #### 5 7021-8 ####[facility] LABIA [id number] [place] [address] [place] Hemoglobin (Bld) [Mass/Vol] 12.2 g/dL Low 13.0-17.0 [facility] Comment on above: Order Comment: Speci men Type: BLOOD SPECIMENOrdering Facility: [facility] Address: [address] [place] [address] Performed By: #### 5 7021-8 ####[facility] LABIA [id number] [place] [address] [place] Lymphocytes (Bld) [#/Vol] 0.00 10*3/uL Low 1.00-4.00 [facility] Comment on above: Order Comment: Speci men Type: BLOOD SPECIMENOrdering Facility: [facility] Address: [address] [place] [address] Performed By: #### 5 7021-8 ####[facility] LABIA [id number] [place] [address] [place] Lymphocytes/100 WBC (Bld) 0.0 % Normal [facility] Comment on above: Order Comment: Speci men Type: BLOOD SPECIMENOrdering Facility: [facility] Address: [address] [place] [address] Performed By: #### 5 7021-8 ####[facility] LABCLIA [id number] [place] [address] [place] MCH (RBC) [Entitic mass] 30.5 pg Normal 26.0-34.0 [facility] Comment on above: Order Comment: Speci men Type: BLOOD SPECIMENOrdering Facility: [facility] Address: [address] [place] [address] Performed By: #### 5 7021-8 ####[facility] LABCLIA [id number] [place] [address] [place] MCHC (RBC) [Mass/Vol] 34.6 g/dL Normal 30.5-36.0 [facility] Comment on above: Order Comment: Speci men Type: BLOOD SPECIMENOrdering Facility: [facility] Address: [address] [place] [address] Performed By: #### 5 7021-8 ####[facility] LABIA [id number] [place] [address] [place] MCV (RBC) [Entitic vol] 88.3 fL Normal 80.0-100.0 [facility] Comment on above: Order Comment: Speci men Type: BLOOD SPECIMENOrdering Facility: [facility] Address: [address] [place] [address] Performed By: #### 5 7021-8 ####[facility] LABCLIA [id number] [place] [address] [place] Monocytes (Bld) [#/Vol] 0.00 10*3/uL Normal <0.87 [facility] Comment on above: Order Comment: Speci men Type: BLOOD SPECIMENOrdering Facility: [facility] Address: [address] [place] [address] Performed By: #### 5 7021-8 ####[facility] LABCLIA [id number] [place] [address] [place] Monocytes/100 WBC (Bld) 0.0 % Normal [facility] Comment on above: Order Comment: Speci men Type: BLOOD SPECIMENOrdering Facility: [facility] Address: [address] [place] [address] Performed By: #### 5 7021-8 ####[facility] LABCLIA [id number] [place] [address] [place] Neutrophils (Bld) [#/Vol] 3.21 10*3/uL Normal 1.45-7.50 [facility] Comment on above: Order Comment: Speci men Type: BLOOD SPECIMENOrdering Facility: [facility] Address: [address] [place] [address] Performed By: #### 5 7021-8 ####[facility] LABCLIA [id number] [place] [address] [place] Neutrophils/100 WBC (Bld) 99.1 % Normal [facility] Comment on above: Order Comment: Speci men Type: BLOOD SPECIMENOrdering Facility: [facility] Address: [address] [place] [address] Performed By: #### 5 7021-8 ####[facility] LABCLIA [id number] [place] [address] [place] Nucleated RBC (Bld) [#/Vol] 10*3/uL Normal <0.01 [facility] Comment on above: Order Comment: Speci men Type: BLOOD SPECIMENOrdering Facility: [facility] Address: [address] [place] [address] Performed By: #### 5 7021-8 ####[facility] LABCLIA [id number] [place] [address] [place] Nucleated RBC/100 WBC (Bld) [Ratio] 0.0 /100 WBC Normal [facility] Comment on above: Order Comment: Speci men Type: BLOOD SPECIMENOrdering Facility: [facility] Address: [address] [place] [address] Performed By: #### 5 7021-8 ####[facility] LABCLIA [id number] [place] [address] [place] Ovalocytes LM Ql (Bld) Few Normal [facility] Comment on above: Order Comment: Speci men Type: BLOOD SPECIMENOrdering Facility: [facility] Address: [address] [place] [address] Performed By: #### 5 7021-8 ####[facility] LABCLIA [id number] [place] [address] [place] Platelet mean volume (Bld) [Entitic vol] 9.4 fL Normal 9.0-12.7 [facility] Comment on above: Order Comment: Speci men Type: BLOOD SPECIMENOrdering Facility: [facility] Address: [address] [place] [address] Performed By: #### 5 7021-8 ####[facility] LABCLIA [id number] [place] [id number] [place] Platelets (Bld) [#/Vol] 97 10*3/uL Low 150-400 [facility] Comment on above: Order Comment: Speci men Type: BLOOD SPECIMENOrdering Facility: [facility] Address: [address] [place] [address] Result Comment: No c lot detected. Performed By: #### 5 7021-8 ####[facility] LABCLIA [id number] [place] [address] [place] Platelets Estimate (Bld) [#/Vol] Decreased Normal [facility] Comment on above: Order Comment: Speci men Type: BLOOD SPECIMENOrdering Facility: [facility] Address: [address] [place], [place] [address] Performed By: #### 5 7021-8 ####[facility] LABCLIA [id number] [address] [address] [place] RBC (Bld) [#/Vol] 4.00 10*6/uL Low 4.20-6.00 [facility] Comment on above: Order Comment: Speci men Type: BLOOD SPECIMENOrdering Facility: [facility] Address: [address] [place] [address] Performed By: #### 5 7021-8 ####[facility] LABIA [id number] [place] [address] [place] RED CELL MORPH Reviewed: see result s of individual morphologies Normal [facility] Comment on above: Order Comment: Speci men Type: BLOOD SPECIMENOrdering Facility: [facility] Address: [address] [place] [address] Performed By: #### 5 7021-8 ####[facility] LABIA [id number] [place] [id number] [place] WBC (Bld) [#/Vol] 3.24 10*3/uL Low 3.70-11.00 [facility] Comment on above: Order Comment: Speci men Type: BLOOD SPECIMENOrdering Facility: [facility] Address: [address] [place] [address] Performed By: #### 5 7021-8 ####[facility] LABCLIA [id number] [place] [id number] [place] CRP SerPl-ncon 04-08-2024 CRP [Mass/Vol] 5.6 mg/dL High <0.9 [facility] Comment on above: Order Comment: Speci men Type: BLOOD SPECIMENOrdering Facility: [facility] Address: [address] [place] [address] Performed By: #### 1 988-5, 11821-5, 3084-1, 2777-1, 2276-4 ####[facility] LABCLIA [id number] [place] [address] [place] Comprehensive metabolic 2000 panelon 04-08-2024 Albumin [Mass/Vol] 3.9 g/dL Normal 3.9-4.9 [facility] Comment on above: Order Comment: Speci men Type: BLOOD SPECIMENOrdering Facility: [facility] Address: [address] [place] [address] Performed By: #### 2 4323-8, 2531-0 ####[facility] LABCLIA [id number] [place] [address] [place] ALP [Catalytic activity/Vol] 172 U/L High 38-113 [facility] Comment on above: Order Comment: Speci men Type: BLOOD SPECIMENOrdering Facility: [facility] Address: [address] [place] [address] Performed By: #### 2 432-8, 2531-0 ####[facility] LABCLIA [id number] [place] [address] [place] ALT [Catalytic activity/Vol] 15 U/L Normal 10-54 [facility] Comment on above: Order Comment: Speci men Type: BLOOD SPECIMENOrdering Facility: [facility] Address: [address] [place] [address] Performed By: #### 2 432-8, 2531-0 ####[facility] LABCLIA [id number] [place] [id number] [place] Anion gap [Moles/Vol] 10 mmol/L Normal 8-15 [facility] Comment on above: Order Comment: Speci men Type: BLOOD SPECIMENOrdering Facility: [facility] Address: [address] [place] [address] Performed By: #### 2 4323-8, 2532-0 ####[facility] LABCLIA [id number] [place] [address] [place] AST [Catalytic activity/Vol] 16 U/L Normal 14-40 [facility] Comment on above: Order Comment: Speci men Type: BLOOD SPECIMENOrdering Facility: [facility] Address: [address] [place] [address] Performed By: #### 2 4323-8, 2532-0 ####[facility] LABCLIA [id number] [place] [address] [place] Bilirubin [Mass/Vol] 0.7 mg/dL Normal 0.2-1.3 [facility] Comment on above: Order Comment: Speci men Type: BLOOD SPECIMENOrdering Facility: [facility] Address: [address] [place] [address] Performed By: #### 2 4323-8, 2532-0 ####[facility] LABCLIA [id number] [place] [address] [place] Calcium [Mass/Vol] 8.6 mg/dL Normal 8.5-10.2 [facility] Comment on above: Order Comment: Speci men Type: BLOOD SPECIMENOrdering Facility: [facility] Address: [address] [place] [address] Performed By: #### 2 4323-8, 2-0 ####[facility] LABCLIA [id number] [place] [address] [place] Chloride [Moles/Vol] 102 mmol/L Normal 98-107 [facility] Comment on above: Order Comment: Speci men Type: BLOOD SPECIMENOrdering Facility: [facility] Address: [address] [place] [address] Performed By: #### 2 4323-8, 2532-0 ####[facility] LABCLIA [id number] [place] [address] [place] CO2 [Moles/Vol] 22 mmol/L Normal 22-30 [facility] Comment on above: Order Comment: Speci men Type: BLOOD SPECIMENOrdering Facility: [facility] Address: [address] [place] [address] Performed By: #### 2 4323-8, 0 ####[facility] LABCLIA [id number] [place] [address] [place] Creatinine [Mass/Vol] 1.02 mg/dL Normal 0.73-1.22 [facility] Comment on above: Order Comment: Speci men Type: BLOOD SPECIMENOrdering Facility: [facility] Address: [address] [place] [address] Performed By: #### 2 43238, ####[facility] LABIA [id number] [place] [address] [place] Creatinine and Glomerular filtration rate.predicted panel (S/P/Bld) 81 mL/min/1.73m??? Normal >=60 [facility] Comment on above: Order Comment: Speci men Type: BLOOD SPECIMENOrdering Facility: [facility] Address: [address] [place] [address] Result Comment: Carol mated Glomerular Filtration Rate [...] GFR. Performed By: #### 2 4323-8, 0 ####[facility] LABIA [id number] [place] [address] [place] Glucose [Mass/Vol] 96 mg/dL Normal 74-99 [facility] Comment on above: Order Comment: Speci men Type: BLOOD SPECIMENOrdering Facility: [facility] Address: [address] [place] [address] Result Comment: The [place] [employer] (ADA) provides guidance for cutoff [...] Standards of Medical Care in Diabetes 2016, [place] [employer]. Diabetes Care. 2016.39(Suppl 1). Performed By: #### 2 4328, 0 ####[facility] LABCLIA [id number] [place] [address] [place] Potassium [Moles/Vol] 3.8 mmol/L Normal 3.7-5.1 [facility] Comment on above: Order Comment: Speci men Type: BLOOD SPECIMENOrdering Facility: [facility] Address: [address] [place] [address] Performed By: #### 2 43201-08, ####[facility] LABCLIA [id number] [place] [address] [place] Protein [Mass/Vol] 5.8 g/dL Low 6.3-8.0 [facility] Comment on above: Order Comment: Speci men Type: BLOOD SPECIMENOrdering Facility: [facility] Address: [address] [place] [address] Performed By: #### 2 4328, 0 ####[facility] LABCLIA [id number] [place] [address] [place] Sodium [Moles/Vol] 134 mmol/L Low 136-144 [facility] Comment on above: Order Comment: Speci men Type: BLOOD SPECIMENOrdering Facility: [facility] Address: [address] [place] [address] Performed By: #### 2 43201-08, 2531-0 ####[facility] LABIA [id number] [place] [id number] [place] Urea nitrogen [Mass/Vol] 12 mg/dL Normal 9-24 [facility] Comment on above: Order Comment: Speci men Type: BLOOD SPECIMENOrdering Facility: [facility] Address: [address] [place] [address] Performed By: #### 2 4323-8, 2531-0 ####[facility] [id number] [place] [id number] [place] Ferritin SerPl-mCncon 2023 Ferritin [Mass/Vol] 433.0 ng/mL Normal 30.3-565.7 [facility] Comment on above: Order Comment: Speci men Type: BLOOD SPECIMENOrdering Facility: [facility] Address: [address] [place] [address] Performed By: #### 1 988-5, 43788-6, 3084-1, 2777-1, 2276-4 ####[facility] [id number] [place] [address] [place] LDH SerPl-cCncon 04-08-2024 LDH [Catalytic activity/Vol] 167 U/L Normal 135-225 [facility] Comment on above: Order Comment: Speci men Type: BLOOD SPECIMENOrdering Facility: [facility] Address: [address] [place] [address] Performed By: #### 2 4323-8, 2531-0 ####[facility] [id number] [place] [id number] [place] Magnesium SerPl-mCncon 04-08 Magnesium [Mass/Vol] 1.9 mg/dL Normal 1.7-2.3 [facility] Comment on above: Order Comment: Speci men Type: BLOOD SPECIMENOrdering Facility: [facility] Address: [address] [place] [address] Performed By: #### 1 988-5, 61967-2, 3084-1, 2777-1, 2276-4 ####[facility] LABCLIA [id number] [place] [address] [place] NURSING PROGon 04-08-2024 NURSING PROG Normal [facility] Phosphate SerPl-mCncon 04-08 Phosphate [Mass/Vol] 3.0 mg/dL Normal 2.7-4.8 [facility] Comment on above: Order Comment: Speci men Type: BLOOD SPECIMENOrdering Facility: [facility] Address: [address] [place] [address] Performed By: #### 1 988-5, 77880-1, 3084-1, 2777-1, 2276-4 ####[facility] LABCLIA [id number] [address] [place] SEPSIS LACTATEon 04-08-2024 Lactate [Moles/Vol] 0.9 mmol/L Normal <=2.0 [facility] Comment on above: Order Comment: Speci men Type: BLOOD SPECIMENOrdering Facility: [facility] Address: [address] [place] [address] Performed By: #### S LACT ####[facility] LABCLIA [id number] [place] [address] [place] SOCIAL WORKon 04-08-2024 SOCIAL WORK Normal [facility] TYPE + SCREENon 04-08-2024 ABO B Normal [facility] Comment on above: Order Comment: Speci men Type: BLOOD SPECIMENOrdering Facility: [facility] Address: [address] [place] [address] Performed By: #### T SCR ####[facility] BLOOD BANKCLIA [id number] [place] [address] [place] HISTORICAL AB SCR STATUS Negative Normal [facility] Comment on above: Order Comment: Speci men Type: BLOOD SPECIMENOrdering Facility: [facility] Address: [address] [place] [address] Performed By: #### T SCR ####[facility] BLOOD BANKIA [id number] [place] [id number] [place] Rh Nom (Bld) Negative Normal [facility] Comment on above: Order Comment: Speci men Type: BLOOD SPECIMENOrdering Facility: [facility] Address: [address] [place] [address] Performed By: #### T SCR ####[facility] [id number] TYPE AND SCREEN EXPIRATION 04/11/2024 23:59 Normal [facility] Comment on above: Order Comment: Speci men Type: BLOOD SPECIMENOrdering Facility: [facility] Address: [address] [place] [address] Performed By: #### T SCR ####[facility] BLOOD [facility] [id number] [place] [id number] [place] Urate SerPl-mCncon Urate [Mass/Vol] 3.1 mg/dL Low 4.0-8.1 [facility] Comment on above: Order Comment: Speci men Type: BLOOD SPECIMENOrdering Facility: [facility] Address: [address] [place] [address] Performed By: #### 1 988-5, 54038-6, 3084-1, 2777-1, 2276-4 ####[facility] LABCLIA [id number] [place] [id number] [place] Urinalysis complete panel (U )on 04-08-2024 Bacteria LM.HPF (Urine sed) [#/Area] Negative Normal Negative [facility] Comment on above: Order Comment: Speci men Type: URINE SPECIMENOrdering Facility: [facility] Address: [address] [place] [address] Performed By: #### 2 4356-8 ####[facility] LABCLIA [id number] [place] [address] [place] Bilirubin Ql (U) Negative Normal Negative [facility] Comment on above: Order Comment: Speci men Type: URINE SPECIMENOrdering Facility: [facility] Address: [address] [place] [address] Performed By: #### 2 4356-8 ####[facility] LABCLIA [id number] [place] [address] [place] Clarity (Unsp spec) Clear Normal Clear [facility] Comment on above: Order Comment: Speci men Type: URINE SPECIMENOrdering Facility: [facility] Address: [address] [place] [address] Performed By: #### 2 4356-8 ####[facility] LABCLIA [id number] [place] [address] [place] [facility] Color (U) Yellow Normal Yellow [facility] Comment on above: Order Comment: Speci men Type: URINE SPECIMENOrdering Facility: [facility] Address: [address] [place] [address] Performed By: #### 2 4356-8 ####[facility] LABCLIA [id number] [place] [address] [place] Epithelial cells LM.HPF (Urine sed) [#/Area] None Seen Normal [facility] Comment on above: Order Comment: Speci men Type: URINE SPECIMENOrdering Facility: [facility] Address: [address] [place] [address] Performed By: #### 2 4356-8 ####[facility] LABCLIA [id number] [place] [address] [place] Glucose Test strip (U) [Mass/Vol] Negative Normal Negative [facility] Comment on above: Order Comment: Speci men Type: URINE SPECIMENOrdering Facility: [facility] Address: [address] [place] [address] Performed By: #### 2 4356-8 ####[facility] LABCLIA [id number] [place] [address] [place] Hemoglobin Ql (U) Negative Normal Negative [facility] Comment on above: Order Comment: Speci men Type: URINE SPECIMENOrdering Facility: [facility] Address: [address] [place] [address] Performed By: #### 2 4356-8 ####[facility] LABCLIA [id number] [place] [address] [place] Hyaline casts (Urine sed) [#/Area] 0 /[LPF] Normal 0 /LPF [facility] Comment on above: Order Comment: Speci men Type: URINE SPECIMENOrdering Facility: [facility] Address: [address] [place] [address] Performed By: #### 2 4356-8 ####[facility] LABCLIA [id number] [place] [address] [place] Ketones Ql (U) Negative Normal Negative [facility] Comment on above: Order Comment: Speci men Type: URINE SPECIMENOrdering Facility: [facility] Address: [address] [place] [address] Performed By: #### 2 4356-8 ####[facility] LABCLIA [id number] [place] [address] [place] Leukocyte esterase Test strip Ql (U) Negative Normal Negative [facility] Comment on above: Order Comment: Speci men Type: URINE SPECIMENOrdering Facility: [facility] Address: [address] [place] [address] Performed By: #### 2 4356-8 ####[facility] LABCLIA [id number] [place] [address] [place] Nitrite Ql (U) Negative Normal Negative [facility] Comment on above: Order Comment: Speci men Type: URINE SPECIMENOrdering Facility: [facility] Address: [address] [place] [address] Performed By: #### 2 4356-8 ####[facility] LABIA [id number] [place] [address] [place] pH (U) 5.5 [pH] Normal <8.5 [facility] Comment on above: Order Comment: Speci men Type: URINE SPECIMENOrdering Facility: [facility] Address: [address] [place] [address] Performed By: #### 2 4356-8 ####[facility] LABIA [id number] [place] [address] [place] Protein (U) [Mass/Vol] Negative Normal Negative [facility] Comment on above: Order Comment: Speci men Type: URINE SPECIMENOrdering Facility: [facility] Address: [address] [place] [address] Performed By: #### 2 4356-8 ####[facility] LABIA [id number] [place] [address] [place] RBC LM.HPF (Urine sed) [#/Area] 0-2 /HPF Normal 0-2 /HPF [facility] Comment on above: Order Comment: Speci men Type: URINE SPECIMENOrdering Facility: [facility] Address: [address] [place] [address] Performed By: #### 2 4356-8 ####[facility] LABIA [id number] [place] [address] [place] Specific gravity (U) [Rel density] 1.021 Normal 1.005-1.03 0 [facility] Comment on above: Order Comment: Speci men Type: URINE SPECIMENOrdering Facility: [facility] Address: [address] [place] [address] Performed By: #### 2 4356-8 ####[facility] LABCLIA [id number] [place] [address] [place] Urobilinogen Ql (U) 0.2 EU/dL Normal 0.2-1.0 EU/dL [facility] Comment on above: Order Comment: Speci men Type: URINE SPECIMENOrdering Facility: [facility] Address: [address] [place] [address] Performed By: #### 2 4356-8 ####[facility] LABCLIA [id number] [place] [address] [place] WBC LM.HPF (Urine sed) [#/Area] 0-5 /HPF Normal 0-5 /HPF [facility] Comment on above: Order Comment: Speci men Type: URINE SPECIMENOrdering Facility: [facility] Address: [address] [place] [address] Performed By: #### 2 4356-8 ####[facility] LABCLIA [id number] [place] [address] [place] XR CHEST 1V FRONTAL PORTon 0 04-08-2024 XR CHEST 1V FRONTAL PORT Normal [facility] ALLIED HEALTHon 04-07-2024 ALLIED HEALTH Normal [facility] CASE MGT INIT ASSESon 2023 CASE MGT INIT ASSES Normal [facility] CBC W Auto Differential pane l (Bld)on 04-07-2024 Basophils (Bld) [#/Vol] 10*3/uL Normal <0.11 [facility] Comment on above: Order Comment: Speci men Type: BLOOD SPECIMENOrdering Facility: [facility] Address: [address] [place] [address] Performed By: #### 5 7021-8 ####[facility] LABCLIA [id number] [place] [address] [place] Basophils/100 WBC (Bld) 0.0 % Normal [facility] Comment on above: Order Comment: Speci men Type: BLOOD SPECIMENOrdering Facility: [facility] Address: [address] [place] [address] Performed By: #### 5 7021-8 ####[facility] LABCLIA [id number] [place] [address] [place] Differential cell count method Nom (Bld) Auto Normal [facility] Comment on above: Order Comment: Speci men Type: BLOOD SPECIMENOrdering Facility: [facility] Address: [address] [place] [address] Performed By: #### 5 7021-8 ####[facility] LABCLIA [id number] [place] [address] [place] Eosinophils (Bld) [#/Vol] 0.06 10*3/uL Normal <0.46 [facility] Comment on above: Order Comment: Speci men Type: BLOOD SPECIMENOrdering Facility: [facility] Address: [address] [place] [address] Performed By: #### 5 7021-8 ####[facility] LABIA [id number] [place] [address] [place] Eosinophils/100 WBC (Bld) 2.1 % Normal [facility] Comment on above: Order Comment: Speci men Type: BLOOD SPECIMENOrdering Facility: [facility] Address: [address] [place] [address] Performed By: #### 5 7021-8 ####[facility] LABIA [id number] [place] [address] [place] Erythrocyte distribution width (RBC) [Ratio] 13.5 % Normal 11.5-15.0 [facility] Comment on above: Order Comment: Speci men Type: BLOOD SPECIMENOrdering Facility: [facility] Address: [address] [place] [address] Performed By: #### 5 7021-8 ####[facility] LABCLIA [id number] [place] [address] [place] Hematocrit (Bld) [Volume fraction] 35.4 % Low 39.0-51.0 [facility] Comment on above: Order Comment: Speci men Type: BLOOD SPECIMENOrdering Facility: [facility] Address: [address] [place] [address] Performed By: #### 5 7021-8 ####[facility] LABCLIA [id number] [place] [address] [place] Hemoglobin (Bld) [Mass/Vol] 12.0 g/dL Low 13.0-17.0 [facility] Comment on above: Order Comment: Speci men Type: BLOOD SPECIMENOrdering Facility: [facility] Address: [address] [place] [address] Performed By: #### 5 7021-8 ####[facility] LABIA [id number] [place] [address] [place] Immature granulocytes (Bld) [#/Vol] 10*3/uL Normal <0.10 [facility] Comment on above: Order Comment: Speci men Type: BLOOD SPECIMENOrdering Facility: [facility] Address: [address] [place] [address] Performed By: #### 5 7021-8 ####[facility] LABIA [id number] [place] [address] [place] Immature granulocytes/100 WBC (Bld) 0.7 % Normal [facility] Comment on above: Order Comment: Speci men Type: BLOOD SPECIMENOrdering Facility: [facility] Address: [address] [place] [address] Performed By: #### 5 7021-8 ####[facility] LABIA [id number] [place] [address] [place] Lymphocytes (Bld) [#/Vol] 10*3/uL Low 1.00-4.00 [facility] Comment on above: Order Comment: Speci men Type: BLOOD SPECIMENOrdering Facility: [facility] Address: [address] [place] [address] Performed By: #### 5 7021-8 ####[facility] LABCLIA [id number] [place] [address] [place] Lymphocytes/100 WBC (Bld) 0.3 % Normal [facility] Comment on above: Order Comment: Speci men Type: BLOOD SPECIMENOrdering Facility: [facility] Address: [address] [place] [address] Performed By: #### 5 7021-8 ####[facility] LABCLIA [id number] [place] [address] [place] MCH (RBC) [Entitic mass] 31.3 pg Normal 26.0-34.0 [facility] Comment on above: Order Comment: Speci men Type: BLOOD SPECIMENOrdering Facility: [facility] Address: [address] [place] [address] Performed By: #### 5 7021-8 ####[facility] LABIA [id number] [place] [address] [place] MCHC (RBC) [Mass/Vol] 33.9 g/dL Normal 30.5-36.0 [facility] Comment on above: Order Comment: Speci men Type: BLOOD SPECIMENOrdering Facility: [facility] Address: [address] [place] [address] Performed By: #### 5 7021-8 ####[facility] LABIA [id number] [place] [address] [place] MCV (RBC) [Entitic vol] 92.2 fL Normal 80.0-100.0 [facility] Comment on above: Order Comment: Speci men Type: BLOOD SPECIMENOrdering Facility: [facility] Address: [address] [place] [address] Performed By: #### 5 7021-8 ####[facility] LABIA [id number] [place] [address] [place] Monocytes (Bld) [#/Vol] 10*3/uL Normal <0.87 [facility] Comment on above: Order Comment: Speci men Type: BLOOD SPECIMENOrdering Facility: [facility] Address: [address] [place] [address] Performed By: #### 5 7021-8 ####[facility] LABCLIA [id number] [place] [address] [place] Monocytes/100 WBC (Bld) 0.3 % Normal [facility] Comment on above: Order Comment: Speci men Type: BLOOD SPECIMENOrdering Facility: [facility] Address: [address] [place] [address] Performed By: #### 5 7021-8 ####[facility] LABCLIA [id number] [place] [address] [place] Neutrophils (Bld) [#/Vol] 2.82 10*3/uL Normal 1.45-7.50 [facility] Comment on above: Order Comment: Speci men Type: BLOOD SPECIMENOrdering Facility: [facility] Address: [address] [place] [address] Performed By: #### 5 7021-8 ####[facility] LABCLIA [id number] [place] [address] [place] Neutrophils/100 WBC (Bld) 96.6 % Normal [facility] Comment on above: Order Comment: Speci men Type: BLOOD SPECIMENOrdering Facility: [facility] Address: [address] [place] [address] Performed By: #### 5 7021-8 ####[facility] LABCLIA [id number] [place] [address] [place] Nucleated RBC (Bld) [#/Vol] 10*3/uL Normal <0.01 [facility] Comment on above: Order Comment: Speci men Type: BLOOD SPECIMENOrdering Facility: [facility] Address: [address] [place] [address] Performed By: #### 5 7021-8 ####[facility] LABCLIA [id number] [place] [address] [place] Nucleated RBC/100 WBC (Bld) [Ratio] 0.0 /100 WBC Normal [facility] Comment on above: Order Comment: Speci men Type: BLOOD SPECIMENOrdering Facility: [facility] Address: [address] [place] [address] Performed By: #### 5 7021-8 ####[facility] LABIA [id number] [place] [address] [place] Platelet mean volume (Bld) [Entitic vol] 9.7 fL Normal 9.0-12.7 [facility] Comment on above: Order Comment: Speci men Type: BLOOD SPECIMENOrdering Facility: [facility] Address: [address] [place] [address] Performed By: #### 5 7021-8 ####[facility] LABCLIA [id number] [place] [address] [place] Platelets (Bld) [#/Vol] 116 10*3/uL Low 150-400 [facility] Comment on above: Order Comment: Speci men Type: BLOOD SPECIMENOrdering Facility: [facility] Address: [address] [place] [address] Performed By: #### 5 7021-8 ####[facility] LABCLIA [id number] [place] [id number] [place] RBC (Bld) [#/Vol] 3.84 10*6/uL Low 4.20-6.00 [facility] Comment on above: Order Comment: Speci men Type: BLOOD SPECIMENOrdering Facility: [facility] Address: [address] [place] [address] Performed By: #### 5 7021-8 ####[facility] LABCLIA [id number] [place] [address] [place] WBC (Bld) [#/Vol] 2.92 10*3/uL Low 3.70-11.00 [facility] Comment on above: Order Comment: Speci men Type: BLOOD SPECIMENOrdering Facility: [facility] Address: [address] [place] [address] Performed By: #### 5 7021-8 ####[facility] LABCLIA [id number] [place] [address] [place] CRP SerPl-mCncon 04-07-2024 CRP [Mass/Vol] 1.2 mg/dL High <0.9 [facility] Comment on above: Order Comment: Speci men Type: BLOOD SPECIMENOrdering Facility: [facility] Address: [address] [place] [address] Performed By: #### 1 988-5, 14145-7, 3084-1, 2777-1, 2276-4 ####[facility] LABCLIA [id number] [place] [address] [place] Comprehensive metabolic 2000 panelon 04-07-2024 Albumin [Mass/Vol] 3.7 g/dL Low 3.9-4.9 [facility] Comment on above: Order Comment: Speci men Type: BLOOD SPECIMENOrdering Facility: [facility] Address: [address] [place] [address] Performed By: #### 2 532-0, 27635-0 ####[facility] LABCLIA [id number] [place] [address] [place] ALP [Catalytic activity/Vol] 184 U/L High 38-113 [facility] Comment on above: Order Comment: Speci men Type: BLOOD SPECIMENOrdering Facility: [facility] Address: [address] [place] [address] Performed By: #### 2 532-0, 45531-7 ####[facility] LABCLIA [id number] [place] [address] [place] ALT [Catalytic activity/Vol] 14 U/L Normal 10-54 [facility] Comment on above: Order Comment: Speci men Type: BLOOD SPECIMENOrdering Facility: [facility] Address: [address] [place] [address] Performed By: #### 2 532-0, 99090-7 ####[facility] LABCLIA [id number] [place] [address] [place] Anion gap [Moles/Vol] 12 mmol/L Normal 8-15 [facility] Comment on above: Order Comment: Speci men Type: BLOOD SPECIMENOrdering Facility: [facility] Address: [address] [place] [address] Performed By: #### 2 532-0, 97890-0 ####[facility] LABCLIA [id number] [place] [address] [place] AST [Catalytic activity/Vol] 17 U/L Normal 14-40 [facility] Comment on above: Order Comment: Speci men Type: BLOOD SPECIMENOrdering Facility: [facility] Address: [address] [place] [address] Performed By: #### 2 532-0, 49019-2 ####[facility] LABCLIA [id number] [place] [address] [place] Bilirubin [Mass/Vol] 0.3 mg/dL Normal 0.2-1.3 [facility] Comment on above: Order Comment: Speci men Type: BLOOD SPECIMENOrdering Facility: [facility] Address: [address] [place] [address] Performed By: #### 2 532-0, 76499-1 ####[facility] LABCLIA [id number] [place] [address] [place] Calcium [Mass/Vol] 8.9 mg/dL Normal 8.5-10.2 [facility] Comment on above: Order Comment: Speci men Type: BLOOD SPECIMENOrdering Facility: [facility] Address: [address] [place] [address] Performed By: #### 2 532-0, 68571-6 ####[facility] LABCLIA [id number] [place] [address] [place] Chloride [Moles/Vol] 107 mmol/L Normal 98-107 [facility] Comment on above: Order Comment: Speci men Type: BLOOD SPECIMENOrdering Facility: [facility] Address: [address] [place] [address] Performed By: #### 2 532-0, 20943-4 ####[facility] LABCLIA [id number] [place] [address] [place] CO2 [Moles/Vol] 22 mmol/L Normal 22-30 [facility] Comment on above: Order Comment: Speci men Type: BLOOD SPECIMENOrdering Facility: [facility] Address: [address] [place] [address] Performed By: #### 2 532-0, 75950-4 ####[facility] LABCLIA [id number] [place] [address] [place] Creatinine [Mass/Vol] 0.95 mg/dL Normal 0.73-1.22 [facility] Comment on above: Order Comment: Speci men Type: BLOOD SPECIMENOrdering Facility: [facility] Address: [address] [place] [address] Performed By: #### 2 532-0, 34110-4 ####[facility] LABCLIA [id number] [place] [address] [place] Creatinine and Glomerular filtration rate.predicted panel (S/P/Bld) 88 mL/min/1.73m??? Normal >=60 [facility] Comment on above: Order Comment: Speci men Type: BLOOD SPECIMENOrdering Facility: [facility] Address: [address] [place] [address] Result Comment: Carol mated Glomerular Filtration Rate [...] actual GFR. Performed By: #### 2 532-0, 23299-4 ####[facility] LABCLIA [id number] [place] [address] [place] Glucose [Mass/Vol] 77 mg/dL Normal 74-99 [facility] Comment on above: Order Comment: Sara randle Type: BLOOD SPECIMENOrdering Facility: [facility] Address: [address] [place] [address] Result Comment: The [place] [employer] (ADA) provides guidance for cutoff [...] Standards of Medical Care in Diabetes 2016, [place] [employer]. Diabetes Care. 2016.39(Suppl 1). Performed By: #### 2 532-0, 09446-3 ####[facility] LABIA [id number] [place] [address] [place] Potassium [Moles/Vol] 4.1 mmol/L Normal 3.7-5.1 [facility] Comment on above: Order Comment: Sara randle Type: BLOOD SPECIMENOrdering Facility: [facility] Address: [address] [place] [address] Performed By: #### 2 532-0, 36803-9 ####[facility] LABCLIA [id number] [place] [address] [place] Protein [Mass/Vol] 5.9 g/dL Low 6.3-8.0 [facility] Comment on above: Order Comment: Speci men Type: BLOOD SPECIMENOrdering Facility: [facility] Address: [address] [place] [address] Performed By: #### 2 532-0, 22664-1 ####[facility] LABCLIA [id number] [place] [address] [place] Sodium [Moles/Vol] 141 mmol/L Normal 136-144 [facility] Comment on above: Order Comment: Speci men Type: BLOOD SPECIMENOrdering Facility: [facility] Address: [address] [place] [address] Performed By: #### 2 532-0, 62733-9 ####[facility] LABIA [id number] [place] [address] [place] Urea nitrogen [Mass/Vol] 16 mg/dL Normal 9-24 [facility] Comment on above: Order Comment: Speci men Type: BLOOD SPECIMENOrdering Facility: [facility] Address: [address] [place] [address] Performed By: #### 2 532-0, 48380-5 ####[facility] LABCLIA [id number] [place] [address] [place] Ferritin SerPl-mCncon 2023 Ferritin [Mass/Vol] 370.0 ng/mL Normal 30.3-565.7 [facility] Comment on above: Order Comment: Speci men Type: BLOOD SPECIMENOrdering Facility: [facility] Address: [address] [place] [address] Performed By: #### 1 988-5, 24455-2, 3084-1, 2777-1, 2276-4 ####[facility] LABCLIA [id number] [place] [id number] [place] LDH SerPl-cCncon 04-07-2024 LDH [Catalytic activity/Vol] 182 U/L Normal 135-225 [facility] Comment on above: Order Comment: Speci men Type: BLOOD SPECIMENOrdering Facility: [facility] Address: [address] [place] [address] Performed By: #### 2 532-0, 98092-3 ####[facility] LABCLIA [id number] [place] [address] [place] MEDICAL EMERon 04-07-2024 MEDICAL FILOMENA Normal [facility] Magnesium SerPl-mCncon 04-07 Magnesium [Mass/Vol] 2.1 mg/dL Normal 1.7-2.3 [facility] Comment on above: Order Comment: Speci men Type: BLOOD SPECIMENOrdering Facility: [facility] Address: [address] [place] [address] [place] [address] Performed By: #### 1 988-5, 83319-5, 3084-1, 2777-1, 2276-4 ####[facility] LABCLIA [id number] [place] [address] [place] NURSING PROGon 04-07-2024 NURSING PROG Normal [facility] NUTRITIONon 04-07-2024 NUTRITION Normal [facility] PT EDon 04-07-2024 PT ED Normal [facility] Phosphate SerPl-mCncon 04-07 Phosphate [Mass/Vol] 3.2 mg/dL Normal 2.7-4.8 [facility] Comment on above: Order Comment: Speci men Type: BLOOD SPECIMENOrdering Facility: [facility] Address: [address] [place], [place] [address] [address] Performed By: #### 1 988-5, 57658-7, 3084-1, 2777-1, 2276-4 ####[facility] LABCLIA [id number] [place] [address] [place] US LEG VEIN DVT [facility] LABo n 06-05-2024 US LEG VEIN DVT [facility] LAB Normal [facility] Urate SerPl-mCncon Urate [Mass/Vol] 3.8 mg/dL Low 4.0-8.1 [facility] Comment on above: Order Comment: Speci men Type: BLOOD SPECIMENOrdering Facility: [facility] Address: [address] [place] [address] Performed By: #### 1 988-5, 96445-2, 3084-1, 2777-1, 2276-4 ####[facility] LABCLIA [id number] [place] [address] [place] CBC W Auto Differential pane l (Bld)on 04-06-2024 Basophils (Bld) [#/Vol] 10*3/uL Normal <0.11 [facility] Comment on above: Order Comment: Speci men Type: BLOOD SPECIMENOrdering Facility: [facility] Address: [address] [place] [address] Performed By: #### 5 7021-8 ####[facility] LABCLIA [id number] [place] [address] [place] Basophils/100 WBC (Bld) 0.5 % Normal [facility] Comment on above: Order Comment: Speci men Type: BLOOD SPECIMENOrdering Facility: [facility] Address: [address] [place] [address] Performed By: #### 5 7021-8 ####[facility] LABCLIA [id number] [place] [address] [place] Differential cell count method Nom (Bld) Auto Normal [facility] Comment on above: Order Comment: Speci men Type: BLOOD SPECIMENOrdering Facility: [facility] Address: [address] [place] [address] Performed By: #### 5 7021-8 ####[facility] LABCLIA [id number] [place] [id number] [place] Eosinophils (Bld) [#/Vol] 0.06 10*3/uL Normal <0.46 [facility] Comment on above: Order Comment: Speci men Type: BLOOD SPECIMENOrdering Facility: [facility] Address: [address] [place] [address] Performed By: #### 5 7021-8 ####[facility] LABCLIA [id number] [place] [address] [place] Eosinophils/100 WBC (Bld) 2.7 % Normal [facility] Comment on above: Order Comment: Speci men Type: BLOOD SPECIMENOrdering Facility: [facility] Address: [address] [place] [address] Performed By: #### 5 7021-8 ####[facility] LABCLIA [id number] [place] [address] [place] Erythrocyte distribution width (RBC) [Ratio] 13.4 % Normal 11.5-15.0 [facility] Comment on above: Order Comment: Speci men Type: BLOOD SPECIMENOrdering Facility: [facility] Address: [address] [place] [address] Performed By: #### 5 7021-8 ####[facility] LABCLIA [id number] [place] [address] [place] Hematocrit (Bld) [Volume fraction] 37.3 % Low 39.0-51.0 [facility] Comment on above: Order Comment: Speci men Type: BLOOD SPECIMENOrdering Facility: [facility] Address: [address] [place] [address] Performed By: #### 5 7021-8 ####[facility] LABCLIA [id number] [place] [address] [place] Hemoglobin (Bld) [Mass/Vol] 12.6 g/dL Low 13.0-17.0 [facility] Comment on above: Order Comment: Speci men Type: BLOOD SPECIMENOrdering Facility: [facility] Address: [address] [place] [address] Performed By: #### 5 7021-8 ####[facility] LABCLIA [id number] [place] [address] [place] Immature granulocytes (Bld) [#/Vol] 10*3/uL Normal <0.10 [facility] Comment on above: Order Comment: Speci men Type: BLOOD SPECIMENOrdering Facility: [facility] Address: [address] [place] [address] Performed By: #### 5 7021-8 ####[facility] LABCLIA [id number] [place] [address] [place] Immature granulocytes/100 WBC (Bld) 0.5 % Normal [facility] Comment on above: Order Comment: Speci men Type: BLOOD SPECIMENOrdering Facility: [facility] Address: [address] [place] [address] Performed By: #### 5 7021-8 ####[facility] LABCLIA [id number] [place] [address] [place] Lymphocytes (Bld) [#/Vol] 10*3/uL Low 1.00-4.00 [facility] Comment on above: Order Comment: Speci men Type: BLOOD SPECIMENOrdering Facility: [facility] Address: [address] [place] [address] Performed By: #### 5 7021-8 ####[facility] LABCLIA [id number] [place] [address] [place] Lymphocytes/100 WBC (Bld) 0.5 % Normal [facility] Comment on above: Order Comment: Speci men Type: BLOOD SPECIMENOrdering Facility: [facility] Address: [address] [place] [address] Performed By: #### 5 7021-8 ####[facility] LABCLIA [id number] [place] [address] [place] MCH (RBC) [Entitic mass] 30.4 pg Normal 26.0-34.0 [facility] Comment on above: Order Comment: Speci men Type: BLOOD SPECIMENOrdering Facility: [facility] Address: [address] [place] [address] Performed By: #### 5 7021-8 ####[facility] LABCLIA [id number] [place] [address] [place] MCHC (RBC) [Mass/Vol] 33.8 g/dL Normal 30.5-36.0 [facility] Comment on above: Order Comment: Speci men Type: BLOOD SPECIMENOrdering Facility: [facility] Address: [address] [place] [address] Performed By: #### 5 7021-8 ####[facility] LABCLIA [id number] [place] [address] [place] MCV (RBC) [Entitic vol] 90.1 fL Normal 80.0-100.0 [facility] Comment on above: Order Comment: Speci men Type: BLOOD SPECIMENOrdering Facility: [facility] Address: [address] [place] [address] Performed By: #### 5 7021-8 ####[facility] LABIA [id number] [place] [address] [place] Monocytes (Bld) [#/Vol] 10*3/uL Normal <0.87 [facility] Comment on above: Order Comment: Speci men Type: BLOOD SPECIMENOrdering Facility: [facility] Address: [address] [place] [address] Performed By: #### 5 7021-8 ####[facility] LABCLIA [id number] [place] [address] [place] Monocytes/100 WBC (Bld) 0.9 % Normal [facility] Comment on above: Order Comment: Speci men Type: BLOOD SPECIMENOrdering Facility: [facility] Address: [address] [place] [address] Performed By: #### 5 7021-8 ####[facility] LABCLIA [id number] [place] [address] [place] Neutrophils (Bld) [#/Vol] 2.11 10*3/uL Normal 1.45-7.50 [facility] Comment on above: Order Comment: Speci men Type: BLOOD SPECIMENOrdering Facility: [facility] Address: [address] [place] [address] Performed By: #### 5 7021-8 ####[facility] LABCLIA [id number] [place] [address] [place] Neutrophils/100 WBC (Bld) 94.9 % Normal [facility] Comment on above: Order Comment: Speci men Type: BLOOD SPECIMENOrdering Facility: [facility] Address: [address] [place] [address] Performed By: #### 5 7021-8 ####[facility] LABCLIA [id number] [place] [address] [place] Nucleated RBC (Bld) [#/Vol] 10*3/uL Normal <0.01 [facility] Comment on above: Order Comment: Speci men Type: BLOOD SPECIMENOrdering Facility: [facility] Address: [address] [place] [address] Performed By: #### 5 7021-8 ####[facility] LABCLIA [id number] [place] [address] [place] Nucleated RBC/100 WBC (Bld) [Ratio] 0.0 /100 WBC Normal [facility] Comment on above: Order Comment: Speci men Type: BLOOD SPECIMENOrdering Facility: [facility] Address: [address] [place] [address] Performed By: #### 5 7021-8 ####[facility] LABCLIA [id number] [place] [address] [place] Platelet mean volume (Bld) [Entitic vol] 9.6 fL Normal 9.0-12.7 [facility] Comment on above: Order Comment: Speci men Type: BLOOD SPECIMENOrdering Facility: [facility] Address: [address] [place] [address] Performed By: #### 5 7021-8 ####[facility] LABCLIA [id number] [place] [address] [place] Platelets (Bld) [#/Vol] 118 10*3/uL Low 150-400 [facility] Comment on above: Order Comment: Speci men Type: BLOOD SPECIMENOrdering Facility: [facility] Address: [address] [place] [address] Performed By: #### 5 7021-8 ####[facility] LABCLIA [id number] [place] [address] [place] RBC (Bld) [#/Vol] 4.14 10*6/uL Low 4.20-6.00 [facility] Comment on above: Order Comment: Speci men Type: BLOOD SPECIMENOrdering Facility: [facility] Address: [address] [place] [address] Performed By: #### 5 7021-8 ####[facility] LABIA [id number] [place] [address] [place] WBC (Bld) [#/Vol] 2.22 10*3/uL Low 3.70-11.00 [facility] Comment on above: Order Comment: Speci men Type: BLOOD SPECIMENOrdering Facility: [facility] Address: [address] [place] [address] Performed By: #### 5 7021-8 ####[facility] LABCLIA [id number] [place] [address] [place] CRP SerPl-mCncon 04-06-2024 CRP [Mass/Vol] 1.7 mg/dL High <0.9 [facility] Comment on above: Order Comment: Speci men Type: BLOOD SPECIMENOrdering Facility: [facility] Address: [address] [place] [address] Performed By: #### 1 988-5, 02154-1, 2777-1, 3084-1, 2276-4 ####[facility] LABCLIA [id number] [place] [address] [place] Comprehensive metabolic 2000 panelon 04-06-2024 Albumin [Mass/Vol] 4.0 g/dL Normal 3.9-4.9 [facility] Comment on above: Order Comment: Speci men Type: BLOOD SPECIMENOrdering Facility: [facility] Address: [address] [place] [address] Performed By: #### 2 4323-8, 2532-0 ####[facility] LABCLIA [id number] [place] [address] [place] ALP [Catalytic activity/Vol] 174 U/L High 38-113 [facility] Comment on above: Order Comment: Speci men Type: BLOOD SPECIMENOrdering Facility: [facility] Address: [address] [place] [address] Performed By: #### 2 4323-8, 2532-0 ####[facility] LABCLIA [id number] [place] [address] [place] ALT [Catalytic activity/Vol] 18 U/L Normal 10-54 [facility] Comment on above: Order Comment: Speci men Type: BLOOD SPECIMENOrdering Facility: [facility] Address: [address] [place] [address] Performed By: #### 2 4323-8, 2532-0 ####[facility] LABCLIA [id number] [place] [id number] [place] Anion gap [Moles/Vol] 11 mmol/L Normal 8-15 [facility] Comment on above: Order Comment: Speci men Type: BLOOD SPECIMENOrdering Facility: [facility] Address: [address] [place] [address] Performed By: #### 2 4323-8, 2531-0 ####[facility] LABCLIA [id number] [place] [id number] [place] AST [Catalytic activity/Vol] 19 U/L Normal 14-40 [facility] Comment on above: Order Comment: Speci men Type: BLOOD SPECIMENOrdering Facility: [facility] Address: [address] [place] [address] Performed By: #### 2 4323-8, 2531-0 ####[facility] LABCLIA [id number] [place] [address] [place] Bilirubin [Mass/Vol] 0.4 mg/dL Normal 0.2-1.3 [facility] Comment on above: Order Comment: Speci men Type: BLOOD SPECIMENOrdering Facility: [facility] Address: [address] [place] [address] Performed By: #### 2 4323-8, 0 ####[facility] LABCLIA [id number] [place] [address] [place] Calcium [Mass/Vol] 8.9 mg/dL Normal 8.5-10.2 [facility] Comment on above: Order Comment: Speci men Type: BLOOD SPECIMENOrdering Facility: [facility] Address: [address] [place] [address] Performed By: #### 2 4323-8, 2531-0 ####[facility] LABCLIA [id number] [place] [address] [place] Chloride [Moles/Vol] 106 mmol/L Normal 98-107 [facility] Comment on above: Order Comment: Speci men Type: BLOOD SPECIMENOrdering Facility: [facility] Address: [address] [place] [address] Performed By: #### 2 4323-8, 2531-0 ####[facility] LABCLIA [id number] [place] [id number] [place] CO2 [Moles/Vol] 25 mmol/L Normal 22-30 [facility] Comment on above: Order Comment: Speci men Type: BLOOD SPECIMENOrdering Facility: [facility] Address: [address] [place] [address] Performed By: #### 2 4323-8, 2531-0 ####[facility] LABIA [id number] [place] [address] [place] Creatinine [Mass/Vol] 0.92 mg/dL Normal 0.73-1.22 [facility] Comment on above: Order Comment: Speci men Type: BLOOD SPECIMENOrdering Facility: [facility] Address: [address] [place] [address] Performed By: #### 2 4328, 2531-0 ####[facility] LABIA [id number] [place] [address] [place] Creatinine and Glomerular filtration rate.predicted panel (S/P/Bld) 91 mL/min/1.73m??? Normal >=60 [facility] Comment on above: Order Comment: Speci men Type: BLOOD SPECIMENOrdering Facility: [facility] Address: [address] [place] [address] Result Comment: Carol mated Glomerular Filtration Rate [...] GFR. Performed By: #### 2 4323-8, 2532-0 ####[facility] LABIA [id number] [place] [address] [place] Glucose [Mass/Vol] 114 mg/dL High 74-99 [facility] Comment on above: Order Comment: Speci men Type: BLOOD SPECIMENOrdering Facility: [facility] Address: [address] [place] [address] Result Comment: The [place] [employer] (ADA) provides guidance for cutoff [...] Standards of Medical Care in Diabetes 2016, [place] [employer]. Diabetes Care. 2016.39(Suppl 1). Performed By: #### 2 4323-8, 0 ####[facility] LABCLIA [id number] [place] [address] [place] Potassium [Moles/Vol] 4.1 mmol/L Normal 3.7-5.1 [facility] Comment on above: Order Comment: Sara randle Type: BLOOD SPECIMENOrdering Facility: [facility] Address: [address] [place] [address] Performed By: #### 2 4323-8, 0 ####[facility] LABCLIA [id number] [place] [address] [place] Protein [Mass/Vol] 6.4 g/dL Normal 6.3-8.0 [facility] Comment on above: Order Comment: aSra randle Type: BLOOD SPECIMENOrdering Facility: [facility] Address: [address] [place] [address] Performed By: #### 2 4323-8, 2531-0 ####[facility] LABCLIA [id number] [place] [address] [place] Sodium [Moles/Vol] 142 mmol/L Normal 136-144 [facility] Comment on above: Order Comment: Speci men Type: BLOOD SPECIMENOrdering Facility: [facility] Address: [address] [place] [address] Performed By: #### 2 4323-8, 2532-0 ####[facility] LABCLIA [id number] [place] [address] [place] Urea nitrogen [Mass/Vol] 16 mg/dL Normal 9-24 [facility] Comment on above: Order Comment: Speci men Type: BLOOD SPECIMENOrdering Facility: [facility] Address: [address] [place] [address] Performed By: #### 2 4323-8, 2532-0 ####[facility] LABCLIA [id number] [place] [address] [place] D dimer FEU PPP-ncon 04-06 Fibrin D-dimer FEU (PPP) [Mass/Vol] 700 ng/mL FEU High <500 [facility] Comment on above: Order Comment: Speci men Type: BLOOD SPECIMENOrdering Facility: [facility] Address: [address] [place] [address] Performed By: #### 4 8065-7, 3255-7, 61412-7 ####[facility] LABCLIA [id number] [place] [address] [place] Ferritin SerPl-mCncon 2023 Ferritin [Mass/Vol] 408.0 ng/mL Normal 30.3-565.7 [facility] Comment on above: Order Comment: Speci men Type: BLOOD SPECIMENOrdering Facility: [facility] Address: [address] [place] [address] Performed By: #### 1 988-5, 19327-5, 2777-1, 3084-1, 2276-4 ####[facility] LABCLIA [id number] [place] [id number] [place] Fibrin D-dimer FEU (PPP) [Ma ss/Vol]on 04-06-2024 D DIMER AGE-RELATED CUTOFF 670 ng/mL FEU Normal [facility] Comment on above: Order Comment: Speci men Type: BLOOD SPECIMENOrdering Facility: [facility] Address: [address] [place] [address] Performed By: #### 4 8065-7, 3255-7, 27662-1 ####[facility] LABCLIA [id number] [place] [address] [place] Fibrinogen PPP-mCncon 2023 Fibrinogen Coag (PPP) [Mass/Vol] 385 mg/dL Normal 200-400 [facility] Comment on above: Order Comment: Speci men Type: BLOOD SPECIMENOrdering Facility: [facility] Address: [address] [place] [address] Performed By: #### 4 8065-7, 3255-7, 37543-9 ####[facility] LABCLIA [id number] [place] [address] [place] HISTORY PHYSICALon HISTORY PHYSICAL Normal [facility] HPC INFUSIONon 04-06-2024 INFUSION DATE 04/06/2024 Normal [facility] Comment on above: Order Comment: Speci men Type: SPECIMEN FROM BLOOD PRODUCTOrdering Facility: [facility] Address: [address] [place] [address] Performed By: #### H PCING ####[facility] LABCLIA [id number] [place] [address] [place] PRODUCT ID [id number] Normal [facility] Comment on above: Order Comment: Speci men Type: SPECIMEN FROM BLOOD PRODUCTOrdering Facility: [facility] Address: [address] [place] [address] Performed By: #### H PCING ####[facility] LABCLIA [id number] [place] [address] [place] PRODUCT TYPE Yescarta Normal [facility] Comment on above: Order Comment: Speci men Type: SPECIMEN FROM BLOOD PRODUCTOrdering Facility: [facility] Address: [address] [place] [address] Performed By: #### H PCING ####[facility] LABCLIA [id number] [place] [address] [place] LDH SerPl-cCncon 04-06-2024 LDH [Catalytic activity/Vol] 180 U/L Normal 135-225 [facility] Comment on above: Order Comment: Speci men Type: BLOOD SPECIMENOrdering Facility: [facility] Address: [address] [place] [address] Performed By: #### 2 4323-8, 2532-0 ####[facility] LABCLIA [id number] [place] [address] [place] Magnesium SerPl-mCncon 04-06 Magnesium [Mass/Vol] 2.2 mg/dL Normal 1.7-2.3 [facility] Comment on above: Order Comment: Speci men Type: BLOOD SPECIMENOrdering Facility: [facility] Address: [address] [place] [address] Performed By: #### 1 988-5, 20920-4, 2777-1, 3084-1, 2276-4 ####[facility] LABCLIA [id number] [place] [address] [place] NURSING PROGon 04-06-2024 NURSING PROG Normal [facility] PT panel Coag (PPP)on 2023 INR Coag (PPP) [Relative time] 1.1 {INR} Normal 0.9-1.3 [facility] Comment on above: Order Comment: Speci men Type: BLOOD SPECIMENOrdering Facility: [facility] Address: [address] [place] [address] Result Comment: Anca min K Antagonist (VKA) Therapeutic Range: INR 2 to 3 (Target INR of 2.5)Note: For patients treated with VKA drugs, such as warfarin, the [place] [employer] 2012 Guideline recommends [...] al. Chest 2012, 141:7S-47SNishimura RA, et al. [facility] 2017, 70: 252-289 Performed By: #### 3 4528-0 ####[facility] LABIA [id number] [place] [address] [place] PT Coag (PPP) [Time] 11.4 s Normal 9.7-13.0 [facility] Comment on above: Order Comment: Speci men Type: BLOOD SPECIMENOrdering Facility: [facility] Address: [address] [place] [address] Performed By: #### 3 4528-0 ####[facility] LABIA [id number] [place] [address] [place] Phosphate SerPl-mCncon 04-06 Phosphate [Mass/Vol] 3.3 mg/dL Normal 2.7-4.8 [facility] Comment on above: Order Comment: Speci men Type: BLOOD SPECIMENOrdering Facility: [facility] Address: [address] [place] [address] Performed By: #### 1 988-5, 44362-2, 2777-1, 3084-1, 2276-4 ####[facility] LABCLIA [id number] [place] [address] [place] TYPE + SCREENon 04-06-2024 ABO B Normal [facility] Comment on above: Order Comment: Speci men Type: BLOOD SPECIMENOrdering Facility: [facility] Address: [address] [place] [address] Performed By: #### T SCR ####CC [facility] BLOOD BANKCLIA [id number] [address] [place] HISTORICAL AB SCR STATUS Negative Normal [facility] Comment on above: Order Comment: Speci men Type: BLOOD SPECIMENOrdering Facility: [facility] Address: [address] [place] [address] Performed By: #### T SCR ####CC MAIN BLOOD BANKCLIA [id number] [address] [place] Rh Nom (Bld) Negative Normal [facility] Comment on above: Order Comment: Speci men Type: BLOOD SPECIMENOrdering Facility: [facility] Address: [address] [place] [address] Performed By: #### T SCR ####CC MAIN BLOOD BANKCLIA [id number] [place] [address] [place] TYPE AND SCREEN EXPIRATION 04/09/2024 23:59 Normal [facility] Comment on above: Order Comment: Speci men Type: BLOOD SPECIMENOrdering Facility: [facility] Address: [address] [place] [address] Performed By: #### T SCR ####CC MAIN BLOOD BANKCLIA [id number] [place] [address] [place] Urate SerPl-mCncon 4 Urate [Mass/Vol] 4.9 mg/dL Normal 4.0-8.1 [facility] Comment on above: Order Comment: Speci men Type: BLOOD SPECIMENOrdering Facility: [facility] Address: [address] [place] [address] Performed By: #### 1 988-5, 04766-1, 2777-1, 3084-1, 2276-4 ####[facility] LABCLIA [id number] [address] [place] aPTT PPPon 04-06-2024 aPTT Coag (PPP) [Time] 31.6 s Normal 23.0-32.4 [facility] Comment on above: Order Comment: Speci men Type: BLOOD SPECIMENOrdering Facility: [facility] Address: [address] [place] [address] Performed By: #### 4 8065-7, 3255-7, 95147-7 ####[facility] LABCLIA [id number] [address] STATES OF [facility] CBC W Auto Differential pane l (Bld)on 04-01-2024 Basophils (Bld) [#/Vol] 0.05 10*3/uL [facility] Basophils/100 WBC (Bld) 1.0 % [facility] Differential cell count method Nom (Bld) Auto [facility] Eosinophils (Bld) [#/Vol] 0.29 10*3/uL [facility] Eosinophils/100 WBC (Bld) 5.9 % [facility] Erythrocyte distribution width (RBC) [Ratio] 13.8 % 11.5 - 15.0 % [facility] Hematocrit (Bld) [Volume fraction] 39.4 % 39.0 - 51.0 % [facility] Hemoglobin (Bld) [Mass/Vol] 13.5 g/dL 13.0 - 17.0 g/dL [facility] Immature granul[facility] (Bld) [#[facility]Vol] [facility] Immature granulocytes/100 WBC (Bld) 0.4 % [facility] Interpretation and review of laboratory results Abnormal [facility] Lymphocytes (Bld) [#/Vol] 0.35 10*3/uL Low [facility] Lymphocytes/100 WBC (Bld) 7.2 % [facility] MCH (RBC) [Entitic mass] 31.8 pg 26.0 - 34.0 pg [facility] MCHC (RBC) [Mass/Vol] 34.3 g/dL 30.5 - 36.0 g/dL [facility] MCV (RBC) [Entitic vol] 92.9 fL 80.0 - 100.0 fL [facility] Monocytes (Bld) [#/Vol] 0.95 10*3/uL High NINF [facility] Monocytes/100 WBC (Bld) 19.5 % [facility] Neutrophils (Bld) [#/Vol] 3.22 10*3/uL [facility] Neutrophils/100 WBC (Bld) 66.0 % [facility] Nucleated RBC (Bld) [#/Vol] NINF [facility] Nucleated RBC/100 WBC (Bld) [Ratio] 0.0 % /100 WBC [facility] Platelet mean volume (Bld) [Entitic vol] 9.9 fL 9.0 - 12.7 fL [facility] Platelets (Bld) [#/Vol] 156 10*3/uL [facility] RBC (Bld) [#/Vol] 4.24 10*6/uL 4.20 - 6.00 m/uL [facility] WBC (Bld) [#/Vol] 4.88 10*3/uL [facility] Basophils (Bld) [#/Vol] 0.05 10*3/uL Normal <0.11 [facility] Comment on above: Order Comment: Speci men Type: BLOOD SPECIMENOrdering Facility: [facility] Address: [address] [place] [address] Performed By: #### 5 7021-8 ####[facility] [id number] [place] [address] [place] Basophils/100 WBC (Bld) 1.0 % Normal [facility] Comment on above: Order Comment: Speci men Type: BLOOD SPECIMENOrdering Facility: [facility] Address: [address] [place] [address] Performed By: #### 5 7021-8 ####[facility] [place] [id number] [place] [address] [place] Differential cell count method Nom (Bld) Auto Normal [facility] Comment on above: Order Comment: Speci men Type: BLOOD SPECIMENOrdering Facility: [facility] Address: [address] [place] [address] Performed By: #### 5 7021-8 ####[facility] [place] [id number] [place] [address] [place] Eosinophils (Bld) [#/Vol] 0.29 10*3/uL Normal <0.46 [facility] Comment on above: Order Comment: Speci men Type: BLOOD SPECIMENOrdering Facility: [facility] Address: [address] [place] [address] Performed By: #### 5 7021-8 ####[facility] [id number] [place] [address] [place] Eosinophils/100 WBC (Bld) 5.9 % Normal [facility] Comment on above: Order Comment: Speci men Type: BLOOD SPECIMENOrdering Facility: [facility] Address: [address] [place] [address] Performed By: #### 5 7021-8 ####[facility] [place] [id number] [place] [address] [place] Erythrocyte distribution width (RBC) [Ratio] 13.8 % Normal 11.5-15.0 [facility] Comment on above: Order Comment: Speci men Type: BLOOD SPECIMENOrdering Facility: [facility] Address: [address] [place] [address] Performed By: #### 5 7021-8 ####[facility] [place] [id number] [place] [address] [place] Hematocrit (Bld) [Volume fraction] 39.4 % Normal 39.0-51.0 [facility] Comment on above: Order Comment: Speci men Type: BLOOD SPECIMENOrdering Facility: [facility] Address: [address] [place] [address] Performed By: #### 5 7021-8 ####[facility] [place] [id number] [place] [address] [place] Hemoglobin (Bld) [Mass/Vol] 13.5 g/dL Normal 13.0-17.0 [facility] Comment on above: Order Comment: Speci men Type: BLOOD SPECIMENOrdering Facility: [facility] Address: [address] [place] [address] Performed By: #### 5 7021-8 ####[facility] [id number] [place] [address] [place] Immature granulocytes (Bld) [#/Vol] 10*3/uL Normal <0.10 [facility] Comment on above: Order Comment: Speci men Type: BLOOD SPECIMENOrdering Facility: [facility] Address: [address] [place] [address] Performed By: #### 5 7021-8 ####[facility] [place] [id number] [place] [address] [place] Immature granulocytes/100 WBC (Bld) 0.4 % Normal [facility] Comment on above: Order Comment: Speci men Type: BLOOD SPECIMENOrdering Facility: [facility] Address: [address] [place] [address] Performed By: #### 5 7021-8 ####[facility] [place] [id number] [place] [address] [place] Lymphocytes (Bld) [#/Vol] 0.35 10*3/uL Low 1.00-4.00 [facility] Comment on above: Order Comment: Speci men Type: BLOOD SPECIMENOrdering Facility: [facility] Address: [address] [place] [address] Performed By: #### 5 7021-8 ####[facility] [place] [id number] [place] [address] [place] Lymphocytes/100 WBC (Bld) 7.2 % Normal [facility] Comment on above: Order Comment: Speci men Type: BLOOD SPECIMENOrdering Facility: [facility] Address: [address] [place] [address] Performed By: #### 5 7021-8 ####[facility] [id number] [place] [address] [place] [facility] MCH (RBC) [Entitic mass] 31.8 pg Normal 26.0-34.0 [facility] Comment on above: Order Comment: Speci men Type: BLOOD SPECIMENOrdering Facility: [facility] Address: [address] [place] [address] Performed By: #### 5 7021-8 ####[facility] [place] [id number] [place] [address] [place] MCHC (RBC) [Mass/Vol] 34.3 g/dL Normal 30.5-36.0 [facility] Comment on above: Order Comment: Speci men Type: BLOOD SPECIMENOrdering Facility: [facility] Address: [address] [place] [address] Performed By: #### 5 7021-8 ####[facility] [place] [id number] [place] [address] [place] MCV (RBC) [Entitic vol] 92.9 fL Normal 80.0-100.0 [facility] Comment on above: Order Comment: Speci men Type: BLOOD SPECIMENOrdering Facility: [facility] Address: [address] [place] [address] Performed By: #### 5 7021-8 ####[facility] [id number] [place] [address] [place] Monocytes (Bld) [#/Vol] 0.95 10*3/uL High <0.87 [facility] Comment on above: Order Comment: Speci men Type: BLOOD SPECIMENOrdering Facility: [facility] Address: [address] [place] [address] Performed By: #### 5 7021-8 ####[facility] [place] [id number] [place] [address] [place] Monocytes/100 WBC (Bld) 19.5 % Normal [facility] Comment on above: Order Comment: Speci men Type: BLOOD SPECIMENOrdering Facility: [facility] Address: [address] [place] [address] Performed By: #### 5 7021-8 ####[facility] [id number] [place] [address] [place] Neutrophils (Bld) [#/Vol] 3.22 10*3/uL Normal 1.45-7.50 [facility] Comment on above: Order Comment: Speci men Type: BLOOD SPECIMENOrdering Facility: [facility] Address: [address] [place] [address] Performed By: #### 5 7021-8 ####[facility] [id number] [place] [address] [place] Neutrophils/100 WBC (Bld) 66.0 % Normal [facility] Comment on above: Order Comment: Speci men Type: BLOOD SPECIMENOrdering Facility: [facility] Address: [address] [place] [address] Performed By: #### 5 7021-8 ####[facility] [place] [id number] [place] [address] [place] Nucleated RBC (Bld) [#/Vol] 10*3/uL Normal <0.01 [facility] Comment on above: Order Comment: Speci men Type: BLOOD SPECIMENOrdering Facility: [facility] Address: [address] [place] [address] Performed By: #### 5 7021-8 ####[facility] [id number] [place] [address] [place] Nucleated RBC/100 WBC (Bld) [Ratio] 0.0 /100 WBC Normal [facility] Comment on above: Order Comment: Speci men Type: BLOOD SPECIMENOrdering Facility: [facility] Address: [address] [place] [address] Performed By: #### 5 7021-8 ####[facility] [id number] [place] [address] [place] Platelet mean volume (Bld) [Entitic vol] 9.9 fL Normal 9.0-12.7 [facility] Comment on above: Order Comment: Speci men Type: BLOOD SPECIMENOrdering Facility: [facility] Address: [address] [place] [address] Performed By: #### 5 7021-8 ####[facility] [id number] [place] [address] [place] Platelets (Bld) [#/Vol] 156 10*3/uL Normal 150-400 [facility] Comment on above: Order Comment: Speci men Type: BLOOD SPECIMENOrdering Facility: [facility] Address: [address] [place] [address] Performed By: #### 5 7021-8 ####[facility] [id number] [place] [address] [place] RBC (Bld) [#/Vol] 4.24 10*6/uL Normal 4.20-6.00 [facility] Comment on above: Order Comment: Speci men Type: BLOOD SPECIMENOrdering Facility: [facility] Address: [address] [place] [address] Performed By: #### 5 7021-8 ####[facility] [id number] [place] [address] [place] WBC (Bld) [#/Vol] 4.88 10*3/uL Normal 3.70-11.00 [facility] Comment on above: Order Comment: Speci men Type: BLOOD SPECIMENOrdering Facility: [facility] Address: [address] [place] [address] Performed By: #### 5 7021-8 ####[facility] [id number] [place] [address] [place] CNCOon 04-01-2024 CNCO Letter Text Normal [facility] CNOVSPon 04-01-2024 CNOVSP Normal [facility] Comprehensive metabolic 2000 panelon 04-01-2024 Albumin [Mass/Vol] 3.7 g/dL Low 3.9 - 4.9 g/dL [facility] ALP [Catalytic activity/Vol] 169 U/L High 38 - 113 U/L [facility] ALT [Catalytic activity/Vol] 17 U/L 10 - 54 U/L [facility] Anion gap [Moles/Vol] 10 mmol/L 9 - 18 mmol/L [facility] AST [Catalytic activity/Vol] 17 U/L 14 - 40 U/L [facility] Bilirubin [Mass/Vol] 0.2 mg/dL 0.2 - 1 .3 mg/dL [facility] Calcium [Mass/Vol] 8.4 mg/dL Low 8.5 - 10. 2 mg/dL [facility] Chloride [Moles/Vol] 108 mmol/L High 97 - 10 5 mmol/L [facility] CO2 [Moles/Vol] 23 mmol/L 22 - 30 mmol/L [facility] Creatinine [Mass/Vol] 0.88 mg/dL 0.73 - 1.22 mg/dL [facility] GFR/1.73 sq M.predicted among non-blacks MDRD (S/P/Bld) [Vol rate/Area] 94 mL/min/{1.73_m2} - PINF [facility] Comment on above: Estimated Glomerular Filtration Rate [...] [Mass/Vol] 88 mg/dL 74 - 99 mg/dL [facility] Comment on above: The [place] Di[employer] Association (ADA) provides guidance for [...] Standards of Medical Care in Diabetes 2016, [place] [employer]. Diabetes Care. 2016.39(Suppl 1). Interpretation and review of laboratory results Abnormal [facility] Potassium [Moles/Vol] 3.9 mmol/L 3.7 - 5.1 mmol/L [facility] Protein [Mass/Vol] 6.2 g/dL Low 6.3 - 8.0 g/dL [facility] Sodium [Moles/Vol] 141 mmol/L 136 - 144 mmol/L [facility] Urea nitrogen [Mass/Vol] 17 mg/dL 9 - 24 mg/dL [facility] Albumin [Mass/Vol] 3.7 g/dL Low 3.9-4.9 [facility] Comment on above: Order Comment: Speci men Type: BLOOD SPECIMENOrdering Facility: [facility] Address: [address] [place] [address] Performed By: #### 2 4323-8 ####[facility] LABCLIA [id number] [place] [address] [place] ALP [Catalytic activity/Vol] 169 U/L High 38-113 [facility] Comment on above: Order Comment: Speci men Type: BLOOD SPECIMENOrdering Facility: [facility] Address: [address] [place] [address] Performed By: #### 2 4323-8 ####[facility] LABCLIA [id number] [place] [address] [place] ALT [Catalytic activity/Vol] 17 U/L Normal 10-54 [facility] Comment on above: Order Comment: Speci men Type: BLOOD SPECIMENOrdering Facility: [facility] Address: [address] [place] [address] Performed By: #### 2 4323-8 ####[facility] LABCLIA [id number] [place] [id number] [place] Anion gap [Moles/Vol] 10 mmol/L Normal 9-18 [facility] Comment on above: Order Comment: Speci men Type: BLOOD SPECIMENOrdering Facility: [facility] Address: [address] [place] [address] Performed By: #### 2 4323-8 ####[facility] LABCLIA [id number] [place] [address] [place] AST [Catalytic activity/Vol] 17 U/L Normal 14-40 [facility] Comment on above: Order Comment: Speci men Type: BLOOD SPECIMENOrdering Facility: [facility] Address: [address] [place] [address] Performed By: #### 2 4323-8 ####[facility] LABCLIA [id number] [place] [address] [place] Bilirubin [Mass/Vol] 0.2 mg/dL Normal 0.2-1.3 [facility] Comment on above: Order Comment: Speci men Type: BLOOD SPECIMENOrdering Facility: [facility] Address: [address] [place] [address] Performed By: #### 2 4323-8 ####[facility] LABCLIA [id number] [place] [address] [place] Calcium [Mass/Vol] 8.4 mg/dL Low 8.5-10.2 [facility] Comment on above: Order Comment: Speci men Type: BLOOD SPECIMENOrdering Facility: [facility] Address: [address] [place], [place] [address] Performed By: #### 2 4323-8 ####[facility] LABCLIA [id number] [id number] [address] [place] Chloride [Moles/Vol] 108 mmol/L High 97-105 [facility] Comment on above: Order Comment: Speci men Type: BLOOD SPECIMENOrdering Facility: [facility] Address: [address] [place] [address] Performed By: #### 2 4323-8 ####[facility] LABCLIA [id number] [place] [address] [place] CO2 [Moles/Vol] 23 mmol/L Normal 22-30 [facility] Comment on above: Order Comment: Speci men Type: BLOOD SPECIMENOrdering Facility: [facility] Address: [address] [place] [address] Performed By: #### 2 4323-8 ####[facility] LABIA [id number] [address] [place] Creatinine [Mass/Vol] 0.88 mg/dL Normal 0.73-1.22 [facility] Comment on above: Order Comment: Speci men Type: BLOOD SPECIMENOrdering Facility: [facility] Address: [address] [place] [address] Performed By: #### 2 4323-8 ####[facility] LABIA [id number] [address] [place] Creatinine and Glomerular filtration rate.predicted panel (S/P/Bld) 94 mL/min/1.73m??? Normal >=60 [facility] Comment on above: Order Comment: Speci men Type: BLOOD SPECIMENOrdering Facility: [facility] Address: [address] [place] [address] Result Comment: Carol mated Glomerular Filtration Rate [...] actual GFR. Performed By: #### 2 4323-8 ####[facility] LABCLIA [id number] [address] [address] [place] Glucose [Mass/Vol] 88 mg/dL Normal 74-99 [facility] Comment on above: Order Comment: Speci men Type: BLOOD SPECIMENOrdering Facility: [facility] Address: [address] [place] [address] Result Comment: The [place] Diabetes Association (ADA) provides guidance for cutoff [...] Standards of Medical Care in Diabetes 2016, [place] Diabetes Association. Diabetes Care. 2016.39(Suppl 1). Performed By: #### 2 4323-8 ####[facility] LABCLIA [id number] [place] [address] [place] Potassium [Moles/Vol] 3.9 mmol/L Normal 3.7-5.1 [facility] Comment on above: Order Comment: Speci men Type: BLOOD SPECIMENOrdering Facility: [facility] Address: [address] [place] [address] Performed By: #### 2 4323-8 ####[facility] LABCLIA [id number] [place] [id number] [place] Protein [Mass/Vol] 6.2 g/dL Low 6.3-8.0 [facility] Comment on above: Order Comment: Speci men Type: BLOOD SPECIMENOrdering Facility: [facility] Address: [address] [place], [place] [address] Performed By: #### 2 4323-8 ####[facility] LABCLIA [id number] [place] [address] [place] Sodium [Moles/Vol] 141 mmol/L Normal 136-144 [facility] Comment on above: Order Comment: Speci men Type: BLOOD SPECIMENOrdering Facility: [facility] Address: [address] [place] [address] Performed By: #### 2 4323-8 ####[facility] LABCLIA [id number] [place] [address] [place] Urea nitrogen [Mass/Vol] 17 mg/dL Normal 9-24 [facility] Comment on above: Order Comment: Speci men Type: BLOOD SPECIMENOrdering Facility: [facility] Address: [address] [place] [address] Performed By: #### 2 4323-8 ####[facility] LABIA [id number] [place] [address] [place] PET+CT Guidance for [...] any questions regarding this interpretation, please call [phone]. If you are unable to reach us at the number above, please feel free to contact [facility] at [phone]. DIVISION OF RADIOLOGY * * *Final Report* [...] * Radiopharmaceutical Dose: 9.4 mCi * Radiopharmaceutical: E58-Vdpjexuugkecdmtzhy (FDG) COMPARISON: FDG PET/CT 01/30/2024 CORRELATION: No relevant imaging available RESULT: REFERENCES: SUV reference values: * Blood pool (descending aorta) activity: SUVmax 2.8 * Background liver activity: SUVmax 3.4; SUVmean 2.6 Dietitian Therapeutic (topogram) images: No additional findings. Notes and [...] No abnormal uptake. DIVISION OF RADIOLOGY Provider, [facility] - 03/31/2024 * * *Final Report* * [...] * Radiopharmaceutical Dose: 9.4 mCi * Radiopharmaceutical: K94-Qlzpmiwdauwsvmopqz (FDG) COMPARISON: FDG PET/CT 01/30/2024 CORRELATION: No relevant imaging available RESULT: REFERENCES: SUV reference values: * Blood pool (descending aorta) activity: SUVmax 2.8 * Background liver activity: SUVmax 3.4; SUVmean 2.6 Dietitian Therapeutic (topogram) images: No additional findings. Notes and [...] suspicious for malignancy (more content not included)... [facility] PET+CT Guidance for localiza tion of tumor of Skull base to mid-thigh-- W 18F-FDG IVOrdered By: Ccf Provider on 03-31-2024 [facility] CNCOon 03-26-2024 CNCO Letter Text Normal [facility] GLUCOSE, BLOOD (POC)on 03-25 Glucose [Mass/Vol] 94 mg/dL 74 - 99 mg/dL [facility] Comment on above: Location:[facility], [address] [place] [address] , [place], [place], [address] The Accu-Chek Inform II glucose meter has [...] blood gas instrument) in the above situations. [facility] NM PET/CT SKULL-THIGH SUBQon 03-25-2024 NM PET/CT SKULL-THIGH SUBQ Normal [facility] PET+CT Guidance for localiza tion of tumor of Skull base to mid-thigh-- W 18F-FDG Bella 03-25-2024 Radiology Study observation (narrative) [facility] CNOVon 03-22-2024 CNOV Normal [facility] CNOVon 03-16-2024 CNOV Normal [facility] CNCNPATEDon 03-15-2024 CNCNPATED Normal [facility] CNOVon 03-15-2024 CNOV Normal [facility] CNPNon 03-13-2024 CNPN Normal [facility] CNPNon 03-10-2024 CNPN Normal [facility] BILIRUBIN, CONJUGATEDon Bilirubin.conjugated [Mass/Vol] mg/dL NINF - 0.2 mg/dL [facility] Bilirub Conj SerPl-mCncon Bilirubin.conjugated [Mass/Vol] mg/dL Normal <0.2 [facility] Comment on above: Order Comment: Speci men Type: BLOOD SPECIMENOrdering Facility: [facility] Address: [address] [place] [address] Performed By: #### 1 5152-2, 54264-4, 3084-1 ####[facility] [id number] [place] [address] [place] C-REACTIVE PROTEINon 024 CRP [Mass/Vol] 2.3 mg/dL [facility] CBC W Auto Differential pane l (Bld)on 03-09-2024 Basophils (Bld) [#/Vol] 0.07 10*3/uL [facility] Basophils/100 WBC (Bld) 0.9 % [facility] Differential cell count method Nom (Bld) Auto [facility] Eosinophils (Bld) [#/Vol] 0.38 10*3/uL [facility] Eosinophils/100 WBC (Bld) 5.1 % [facility] Erythrocyte distribution width (RBC) [Ratio] 13.0 % 11.5 - 15.0 % [facility] Hematocrit (Bld) [Volume fraction] 38.7 % Low 39.0 - 51.0 % [facility] Hemoglobin (Bld) [Mass/Vol] 13.2 g/dL 13.0 - 17.0 g/dL [facility] Immature granulocytes (Bld) [#/Vol] [facility] Immature granulocytes/100 WBC (Bld) 0.3 % [facility] Interpretation and review of laboratory results Abnormal [facility] Lymphocytes (Bld) [#/Vol] 0.54 10*3/uL Low [facility] Lymphocytes/100 WBC (Bld) 7.3 % [facility] MCH (RBC) [Entitic mass] 30.7 pg 26.0 - 34.0 pg [facility] MCHC (RBC) [Mass/Vol] 34.1 g/dL 30.5 - 36.0 g/dL [facility] MCV (RBC) [Entitic vol] 90.0 fL 80.0 - 100.0 fL [facility] Monocytes (Bld) [#/Vol] 1.06 10*3/uL High [facility] Monocytes/100 WBC (Bld) 14.3 % [facility] Neutrophils (Bld) [#/Vol] 5.36 10*3/uL [facility] Neutrophils/100 WBC (Bld) 72.1 % [facility] Nucleated RBC (Bld) [#/Vol] [facility] Nucleated RBC/100 WBC (Bld) [Ratio] 0.0 % /100 WBC [facility] Platelet mean volume (Bld) [Entitic vol] 9.9 fL 9.0 - 12.7 fL [facility] Platelets (Bld) [#/Vol] 219 10*3/uL [facility] RBC (Bld) [#/Vol] 4.30 10*6/uL 4.20 - 6.00 m/uL [facility] WBC (Bld) [#/Vol] 7.43 10*3/uL [facility] Basophils (Bld) [#/Vol] 0.07 10*3/uL Normal <0.11 [facility] Comment on above: Order Comment: Speci men Type: BLOOD SPECIMENOrdering Facility: [facility] Address: [address] [place] [address] Performed By: #### 5 7021-8 ####[facility] [id number] [place] [address] [place] Basophils/100 WBC (Bld) 0.9 % Normal [facility] Comment on above: Order Comment: Speci men Type: BLOOD SPECIMENOrdering Facility: [facility] Address: [address] [place] [address] Performed By: #### 5 7021-8 ####[facility] [id number] [place] [address] [place] Differential cell count method Nom (Bld) Auto Normal [facility] Comment on above: Order Comment: Speci men Type: BLOOD SPECIMENOrdering Facility: [facility] Address: [address] [place] [address] Performed By: #### 5 7021-8 ####[facility] [place] [place] [id number] [place] [address] [place] Eosinophils (Bld) [#/Vol] 0.38 10*3/uL Normal <0.46 [facility] Comment on above: Order Comment: Speci men Type: BLOOD SPECIMENOrdering Facility: [facility] Address: [address] [place] [address] Performed By: #### 5 7021-8 ####[facility] [id number] [place] [address] [place] Eosinophils/100 WBC (Bld) 5.1 % Normal [facility] Comment on above: Order Comment: Speci men Type: BLOOD SPECIMENOrdering Facility: [facility] Address: [address] [place] [address] Performed By: #### 5 7021-8 ####[facility] [id number] [place] [address] [place] Erythrocyte distribution width (RBC) [Ratio] 13.0 % Normal 11.5-15.0 [facility] Comment on above: Order Comment: Speci men Type: BLOOD SPECIMENOrdering Facility: [facility] Address: [address] [place] [address] Performed By: #### 5 7021-8 ####[facility] [place] [id number] [place] [address] [place] Hematocrit (Bld) [Volume fraction] 38.7 % Low 39.0-51.0 [facility] Comment on above: Order Comment: Speci men Type: BLOOD SPECIMENOrdering Facility: [facility] Address: [address] [place] [address] Performed By: #### 5 7021-8 ####[facility] [id number] [place] [address] [place] Hemoglobin (Bld) [Mass/Vol] 13.2 g/dL Normal 13.0-17.0 [facility] Comment on above: Order Comment: Speci men Type: BLOOD SPECIMENOrdering Facility: [facility] Address: [address] [place] [address] Performed By: #### 5 7021-8 ####[facility] [id number] [place] [address] [place] Immature granulocytes (Bld) [#/Vol] 10*3/uL Normal <0.10 [facility] Comment on above: Order Comment: Speci men Type: BLOOD SPECIMENOrdering Facility: [facility] Address: [address] [place] [address] Performed By: #### 5 7021-8 ####[facility] [id number] [place] [address] [facility] Immature granulocytes/100 WBC (Bld) 0.3 % Normal [facility] Comment on above: Order Comment: Speci men Type: BLOOD SPECIMENOrdering Facility: [facility] Address: [address] [place] [address] Performed By: #### 5 7021-8 ####[facility] [id number] [place] [address] [place] Lymphocytes (Bld) [#/Vol] 0.54 10*3/uL Low 1.00-4.00 [facility] Comment on above: Order Comment: Speci men Type: BLOOD SPECIMENOrdering Facility: [facility] Address: [address] [place] [address] Performed By: #### 5 7021-8 ####[facility] [place] [id number] [place] [address] [place] Lymphocytes/100 WBC (Bld) 7.3 % Normal [facility] Comment on above: Order Comment: Speci men Type: BLOOD SPECIMENOrdering Facility: [facility] Address: [address] [place] [address] Performed By: #### 5 7021-8 ####[facility] [place] [id number] [place] [address] [place] MCH (RBC) [Entitic mass] 30.7 pg Normal 26.0-34.0 [facility] Comment on above: Order Comment: Speci men Type: BLOOD SPECIMENOrdering Facility: [facility] Address: [address] [place] [address] Performed By: #### 5 7021-8 ####[facility] [place] [id number] [place] [address] [place] MCHC (RBC) [Mass/Vol] 34.1 g/dL Normal 30.5-36.0 [facility] Comment on above: Order Comment: Speci men Type: BLOOD SPECIMENOrdering Facility: [facility] Address: [address] [place] [address] Performed By: #### 5 7021-8 ####[facility] [id number] [place] [address] [place] MCV (RBC) [Entitic vol] 90.0 fL Normal 80.0-100.0 [facility] Comment on above: Order Comment: Speci men Type: BLOOD SPECIMENOrdering Facility: [facility] Address: [address] [place] [address] Performed By: #### 5 7021-8 ####[facility] [id number] [place] [address] [place] Monocytes (Bld) [#/Vol] 1.06 10*3/uL High <0.87 [facility] Comment on above: Order Comment: Speci men Type: BLOOD SPECIMENOrdering Facility: [facility] Address: [address] [place] [address] Performed By: #### 5 7021-8 ####[facility] [id number] [place] [address] [place] Monocytes/100 WBC (Bld) 14.3 % Normal [facility] Comment on above: Order Comment: Speci men Type: BLOOD SPECIMENOrdering Facility: [facility] Address: [address] [place] [address] Performed By: #### 5 7021-8 ####[facility] [id number] [place] [address] [place] Neutrophils (Bld) [#/Vol] 5.36 10*3/uL Normal 1.45-7.50 [facility] Comment on above: Order Comment: Speci men Type: BLOOD SPECIMENOrdering Facility: [facility] Address: [address] [place] [address] Performed By: #### 5 7021-8 ####[facility] [id number] [place] [address] [place] Neutrophils/100 WBC (Bld) 72.1 % Normal [facility] Comment on above: Order Comment: Speci men Type: BLOOD SPECIMENOrdering Facility: [facility] Address: [address] [place] [address] Performed By: #### 5 7021-8 ####[facility] [place] [id number] [place] [address] [place] Nucleated RBC (Bld) [#/Vol] 10*3/uL Normal <0.01 [facility] Comment on above: Order Comment: Speci men Type: BLOOD SPECIMENOrdering Facility: [facility] Address: [address] [place] [address] Performed By: #### 5 7021-8 ####[facility] [id number] [place] [address] [place] Nucleated RBC/100 WBC (Bld) [Ratio] 0.0 /100 WBC Normal [facility] Comment on above: Order Comment: Speci men Type: BLOOD SPECIMENOrdering Facility: [facility] Address: [address] [place] [address] Performed By: #### 5 7021-8 ####[facility] [id number] [place] [address] [place] Platelet mean volume (Bld) [Entitic vol] 9.9 fL Normal 9.0-12.7 [facility] Comment on above: Order Comment: Speci men Type: BLOOD SPECIMENOrdering Facility: [facility] Address: [address] [place] [address] Performed By: #### 5 7021-8 ####[facility] [place] [id number] [place] [address] [place] Platelets (Bld) [#/Vol] 219 10*3/uL Normal 150-400 [facility] Comment on above: Order Comment: Speci men Type: BLOOD SPECIMENOrdering Facility: [facility] Address: [address] [place] [address] Performed By: #### 5 7021-8 ####[facility] [id number] [place] [address] [place] RBC (Bld) [#/Vol] 4.30 10*6/uL Normal 4.20-6.00 [facility] Comment on above: Order Comment: Speci men Type: BLOOD SPECIMENOrdering Facility: [facility] Address: [address] [place] [address] Performed By: #### 5 7021-8 ####[facility] [id number] [place] [address] [place] WBC (Bld) [#/Vol] 7.43 10*3/uL Normal 3.70-11.00 [facility] Comment on above: Order Comment: Speci men Type: BLOOD SPECIMENOrdering Facility: [facility] Address: [address] [place] [address] Performed By: #### 5 7021-8 ####[facility] [id number] [place] [address] [place] CRP SerPl-mCncon 03-09-2024 CRP [Mass/Vol] 2.3 mg/dL High <0.9 [facility] Comment on above: Order Comment: Speci men Type: BLOOD SPECIMENOrdering Facility: [facility] Address: [address] [place] [address] Performed By: #### 1 988-5 ####[facility] [id number] [place] [address] [place] CRP [Mass/Vol]on 03-09-2024 Interpretation and review of laboratory results Abnormal [facility] Comprehensive metabolic 2000 panelon 03-09-2024 Albumin [Mass/Vol] 4.1 g/dL 3.9 - 4.9 g/dL [facility] ALP [Catalytic activity/Vol] 252 U/L High 38 - 113 U/L [facility] ALT [Catalytic activity/Vol] 20 U/L 10 - 54 U/L [facility] Anion gap [Moles/Vol] 13 mmol/L 9 - 18 mmol/L [facility] AST [Catalytic activity/Vol] 19 U/L 14 - 40 U/L [facility] Bilirubin [Mass/Vol] 0.2 mg/dL 0.2 - 1 .3 mg/dL [facility] Calcium [Mass/Vol] 9.4 mg/dL 8.5 - 10. 2 mg/dL [facility] Chloride [Moles/Vol] 103 mmol/L 97 - 10 5 mmol/L [facility] CO2 [Moles/Vol] 24 mmol/L 22 - 30 mmol/L [facility] Creatinine [Mass/Vol] 0.98 mg/dL 0.73 - 1.22 mg/dL [facility] GFR/1.73 sq M.predicted among non-blacks MDRD (S/P/Bld) [Vol rate/Area] 85 mL/min/{1.73_m2} - PINF [facility] Comment on above: Estimated Glomerular Filtration Rate [...] 105 mg/dL High 74 - 99 mg/dL [facility] Comment on above: The [place] Di[employer] Association (ADA) provides guidance for [...] Standards of Medical Care in Diabetes 2016, [place] [employer]. Diabetes Care. 2016.39(Suppl 1). Interpretation and review of laboratory results Abnormal [facility] Potassium [Moles/Vol] 4.3 mmol/L 3.7 - 5.1 mmol/L [facility] Protein [Mass/Vol] 7.3 g/dL 6.3 - 8.0 g/dL [facility] Sodium [Moles/Vol] 140 mmol/L 136 - 144 mmol/L [facility] Urea nitrogen [Mass/Vol] 15 mg/dL 9 - 24 mg/dL [facility] Albumin [Mass/Vol] 4.1 g/dL Normal 3.9-4.9 [facility] Comment on above: Order Comment: Speci men Type: BLOOD SPECIMENOrdering Facility: [facility] Address: [address] [place] [address] Performed By: #### 1 5152-2, 45307-0, 4-1 ####[facility] [id number] [place] [address] [place] ALP [Catalytic activity/Vol] 252 U/L High 38-113 [facility] Comment on above: Order Comment: Dottyi razia Type: BLOOD SPECIMENOrdering Facility: [facility] Address: [address] [place] [address] Performed By: #### 1 5152-2, 38672-7, 3084-1 ####[facility] [id number] [place] [address] [place] ALT [Catalytic activity/Vol] 20 U/L Normal 10-54 [facility] Comment on above: Order Comment: Speci men Type: BLOOD SPECIMENOrdering Facility: [facility] Address: [address] [place] [address] Performed By: #### 1 5152-2, 52513-7, 3084-1 ####[facility] [id number] [place] [address] [place] Anion gap [Moles/Vol] 13 mmol/L Normal 9-18 [facility] Comment on above: Order Comment: Speci men Type: BLOOD SPECIMENOrdering Facility: [facility] Address: [address] [place] [address] Performed By: #### 1 5152-2, 37274-7, 3084-1 ####[facility] [id number] [place] [address] [place] AST [Catalytic activity/Vol] 19 U/L Normal 14-40 [facility] Comment on above: Order Comment: Speci men Type: BLOOD SPECIMENOrdering Facility: [facility] Address: [address] [place] [address] Performed By: #### 1 5152-2, 75945-3, 308-1 ####[facility] [id number] [place] [address] [place] Bilirubin [Mass/Vol] 0.2 mg/dL Normal 0.2-1.3 [facility] Comment on above: Order Comment: Speci men Type: BLOOD SPECIMENOrdering Facility: [facility] Address: [address] [place] [address] Performed By: #### 1 5152-2, 71143-4, 3084-1 ####[facility] [id number] [place] [address] [place] Calcium [Mass/Vol] 9.4 mg/dL Normal 8.5-10.2 [facility] Comment on above: Order Comment: Speci men Type: BLOOD SPECIMENOrdering Facility: [facility] Address: [address] [place] [address] Performed By: #### 1 5152-2, 79981-4, 3084-1 ####[facility] [id number] [place] [address] [place] Chloride [Moles/Vol] 103 mmol/L Normal 97-105 [facility] Comment on above: Order Comment: Speci men Type: BLOOD SPECIMENOrdering Facility: [facility] Address: [address] [place] [address] Performed By: #### 1 5152-2, 63208-5, 3084-1 ####[facility] [id number] [place] [address] [place] CO2 [Moles/Vol] 24 mmol/L Normal 22-30 [facility] Comment on above: Order Comment: Speci men Type: BLOOD SPECIMENOrdering Facility: [facility] Address: [address] [place] [address] Performed By: #### 1 5152-2, 29342-9, 3084-1 ####[facility] [id number] [place] [address] [place] Creatinine [Mass/Vol] 0.98 mg/dL Normal 0.73-1.22 [facility] Comment on above: Order Comment: Speci men Type: BLOOD SPECIMENOrdering Facility: [facility] Address: [address] [place] [address] Performed By: #### 1 5152-2, 69800-3, 3084-1 ####[facility] [id number] [place] [address] [place] Creatinine and Glomerular filtration rate.predicted panel (S/P/Bld) 85 mL/min/1.73m??? Normal >=60 [facility] Comment on above: Order Comment: Speci men Type: BLOOD SPECIMENOrdering Facility: [facility] Address: [address] [place] [address] Result Comment: Carol mated Glomerular Filtration Rate [...] 1 5152-2, , 3083-11 ####[facility] [id number] [address] [address] [place] Glucose [Mass/Vol] 105 mg/dL High 74-99 [facility] Comment on above: Order Comment: Sara randle Type: BLOOD SPECIMENOrdering Facility: [facility] Address: [address] [place] [address] Result Comment: The [place] Diabetes Association (ADA) provides guidance for cutoff [...] Standards of Medical Care in Diabetes 2016, [place] [employer]. Diabetes Care. 2016.39(Suppl 1). Performed By: #### 1 5152-2, , 3083-11 ####[facility] [id number] [place] [address] [place] Potassium [Moles/Vol] 4.3 mmol/L Normal 3.7-5.1 [facility] Comment on above: Order Comment: Sraa randle Type: BLOOD SPECIMENOrdering Facility: [facility] Address: [address] [place] [address] Performed By: #### 1 5152-2, , 3083-11 ####[facility] [id number] [address] [address] [place] Protein [Mass/Vol] 7.3 g/dL Normal 6.3-8.0 [facility] Comment on above: Order Comment: Speci men Type: BLOOD SPECIMENOrdering Facility: [facility] Address: [address] [place] [address] Performed By: #### 1 5152-2, 02056-9, 308-1 ####[facility] [id number] [place] [address] [place] Sodium [Moles/Vol] 140 mmol/L Normal 136-144 [facility] Comment on above: Order Comment: Speci men Type: BLOOD SPECIMENOrdering Facility: [facility] Address: [address] [place] [address] Performed By: #### 1 5152-2, 98547-8, 308-1 ####[facility] [id number] [place] [address] [place] Urea nitrogen [Mass/Vol] 15 mg/dL Normal 9-24 [facility] Comment on above: Order Comment: Speci men Type: BLOOD SPECIMENOrdering Facility: [facility] Address: [address] [place] [address] Performed By: #### 1 5152-2, 86968-7, 3083-1 ####[facility] [id number] [place] [address] [place] IR CENTRAL CATH PLACEMENTon 03-09-2024 IR CENTRAL CATH PLACEMENT Normal [facility] LACTATE DEHYDROGENASEon 05-0 LDH [Catalytic activity/Vol] 214 U/L 135 - 225 U/L [facility] LDH SerPl-cCncon 03-09-2024 LDH [Catalytic activity/Vol] 214 U/L Normal 135-225 [facility] Comment on above: Order Comment: Speci men Type: BLOOD SPECIMENOrdering Facility: [facility] Address: [address] [place] [address] Performed By: #### 2 532-0 ####[facility] [id number] [place] [address] [place] LDH [Catalytic activity/Vol] on 03-09-2024 Interpretation and review of laboratory results Normal [facility] MAGNESIUMon 03-09-2024 Magnesium [Mass/Vol] 2.1 mg/dL 1.7 - 2 .3 mg/dL [facility] Magnesium SerPl-mCncon 03-09 Magnesium [Mass/Vol] 2.1 mg/dL Normal 1.7-2.3 [facility] Comment on above: Order Comment: Speci men Type: BLOOD SPECIMENOrdering Facility: [facility] Address: [address] [place] [address] Performed By: #### 1 9123-9, 2777-1 ####[facility] [id number] [place] [address] [place] No Panel Informationon 03-09 Interpretation and review of laboratory results Normal [facility] Interpretation and review of laboratory results Normal [facility] PHOSPHORUS INORGANICon 03-09 Phosphate [Mass/Vol] 3.6 mg/dL 2.7 - 4 .8 mg/dL [facility] Phosphate SerPl-ncon 03-09 Phosphate [Mass/Vol] 3.6 mg/dL Normal 2.7-4.8 [facility] Comment on above: Order Comment: Speci men Type: BLOOD SPECIMENOrdering Facility: [facility] Address: [address] [place] [address] Performed By: #### 1 9123-9, 2777-1 ####[facility] [id number] [place] [address] [place] URIC ACIDon 03-09-2024 Urate [Mass/Vol] 6.7 mg/dL 4.0 - 8.1 mg/dL [facility] Urate SerPl-mCncon Urate [Mass/Vol] 6.7 mg/dL Normal 4.0-8.1 [facility] Comment on above: Order Comment: Speci men Type: BLOOD SPECIMENOrdering Facility: [facility] Address: [address] [place] [address] Performed By: #### 1 5152-2, 15326-6, 3084-1 ####[facility] [id number] [place] [address] [place] BLOOD TB SCREENon 03-08-2024 M. tuberculosis tuberculin stim IFN-g Ql (Bld) Negative Normal [facility] Comment on above: Order Comment: Speci men Type: BLOOD SPECIMENOrdering Facility: [facility] Address: [address] [place] [address] Performed By: #### I NFTBP ####[facility] [id number] [place] [address] [place] MITOGEN MINUS NIL >9.95 Normal >=0.50 [facility] Comment on above: Order Comment: Speci men Type: BLOOD SPECIMENOrdering Facility: [facility] Address: [address] [place] [address] Performed By: #### I NFTBP ####[facility] [id number] [place] [address] [place] TB GAMMA INTERPRETATION Normal [facility] Comment on above: Order Comment: Speci men Type: BLOOD SPECIMENOrdering Facility: [facility] Address: [address] [place] [address] Performed By: #### I NFTBP ####[facility] [id number] [place] [address] [place] TB NIL 0.05 IU/mL Normal <=8.00 [facility] Comment on above: Order Comment: Speci men Type: BLOOD SPECIMENOrdering Facility: [facility] Address: [address] [place] [address] Performed By: #### I NFTBP ####[facility] [id number] [place] [address] [place] TB1 AG MINUS NIL 0.00 IU/mL Normal <0.35 [facility] Comment on above: Order Comment: Speci men Type: BLOOD SPECIMENOrdering Facility: [facility] Address: [address] [place] [address] Performed By: #### I NFTBP ####[facility] LABCLIA [id number] [address] [place] TB2 AG MINUS NIL 0.00 IU/mL Normal <0.35 [facility] Comment on above: Order Comment: Speci men Type: BLOOD SPECIMENOrdering Facility: [facility] Address: [address] [place] [address] Performed By: #### I NFTBP ####[facility] LABCLIA [id number] [address] [place] C-REACTIVE PROTEINon 024 CRP [Mass/Vol] 1.8 mg/dL [facility] CBC W Auto Differential pane l (Bld)on 03-08-2024 Basophils (Bld) [#/Vol] 0.07 10*3/uL [facility] Basophils/100 WBC (Bld) 0.9 % [facility] Differential cell count method Nom (Bld) Auto [facility] Eosinophils (Bld) [#/Vol] 0.44 10*3/uL [facility] Eosinophils/100 WBC (Bld) 5.5 % [facility] Erythrocyte distribution width (RBC) [Ratio] 12.7 % 11.5 - 15.0 % [facility] Hematocrit (Bld) [Volume fraction] 40.1 % 39.0 - 51.0 % [facility] Hemoglobin (Bld) [Mass/Vol] 13.8 g/dL 13.0 - 17.0 g/dL [facility] Immature granulocytes (Bld) [#/Vol] 0.03 10*3/uL [facility] Immature granulocytes/100 WBC (Bld) 0.4 % [facility] Interpretation and review of laboratory results Abnormal [facility] Lymphocytes (Bld) [#/Vol] 0.48 10*3/uL Low [facility] Lymphocytes/100 WBC (Bld) 6.0 % [facility] MCH (RBC) [Entitic mass] 31.1 pg 26.0 - 34.0 pg [facility] MCHC (RBC) [Mass/Vol] 34.4 g/dL 30.5 - 36.0 g/dL [facility] MCV (RBC) [Entitic vol] 90.3 fL 80.0 - 100.0 fL [facility] Monocytes (Bld) [#/Vol] 1.16 10*3/uL [facility] Monocytes/100 WBC (Bld) 14.4 % [facility] Neutrophils (Bld) [#/Vol] 5.86 10*3/uL [facility] Neutrophils/100 WBC (Bld) 72.8 % [facility] Nucleated RBC (Bld) [#/Vol] [facility] Nucleated RBC/100 WBC (Bld) [Ratio] 0.0 % /100 WBC [facility] Platelet mean volume (Bld) [Entitic vol] 11.0 fL 9.0 - 12.7 fL [facility] Platelets (Bld) [#/Vol] 173 10*3/uL [facility] RBC (Bld) [#/Vol] 4.44 10*6/uL 4.20 - 6.00 m/uL [facility] WBC (Bld) [#/Vol] 8.04 10*3/uL [facility] Basophils (Bld) [#/Vol] 0.07 10*3/uL Normal <0.11 [facility] Comment on above: Order Comment: Speci men Type: BLOOD SPECIMENOrdering Facility: [facility] Address: [address] [place] [address] Performed By: #### 5 7021-8 ####[facility] [id number] [address] [place] Basophils/100 WBC (Bld) 0.9 % Normal [facility] Comment on above: Order Comment: Speci men Type: BLOOD SPECIMENOrdering Facility: [facility] Address: [address] [place] [address] Performed By: #### 5 7021-8 ####[facility] [id number] [place] [address] [place] Differential cell count method Nom (Bld) Auto Normal [facility] Comment on above: Order Comment: Speci men Type: BLOOD SPECIMENOrdering Facility: [facility] Address: [address] [place] [address] Performed By: #### 5 7021-8 ####[facility] [id number] [place] [address] [place] Eosinophils (Bld) [#/Vol] 0.44 10*3/uL Normal <0.46 [facility] Comment on above: Order Comment: Speci men Type: BLOOD SPECIMENOrdering Facility: [facility] Address: [address] [place] [address] Performed By: #### 5 7021-8 ####[facility] [id number] [place] [address] [place] Eosinophils/100 WBC (Bld) 5.5 % Normal [facility] Comment on above: Order Comment: Speci men Type: BLOOD SPECIMENOrdering Facility: [facility] Address: [address] [place] [address] Performed By: #### 5 7021-8 ####[facility] [id number] [place] [address] [place] Erythrocyte distribution width (RBC) [Ratio] 12.7 % Normal 11.5-15.0 [facility] Comment on above: Order Comment: Speci men Type: BLOOD SPECIMENOrdering Facility: [facility] Address: [address] [place] [address] Performed By: #### 5 7021-8 ####[facility] [id number] [place] [address] [place] Hematocrit (Bld) [Volume fraction] 40.1 % Normal 39.0-51.0 [facility] Comment on above: Order Comment: Speci men Type: BLOOD SPECIMENOrdering Facility: [facility] Address: [address] [place] [address] Performed By: #### 5 7021-8 ####[facility] [id number] [place] [address] [place] Hemoglobin (Bld) [Mass/Vol] 13.8 g/dL Normal 13.0-17.0 [facility] Comment on above: Order Comment: Speci men Type: BLOOD SPECIMENOrdering Facility: [facility] Address: [address] [place] [address] Performed By: #### 5 7021-8 ####[facility] [id number] [place] [address] [place] Immature granulocytes (Bld) [#/Vol] 0.03 10*3/uL Normal <0.10 [facility] Comment on above: Order Comment: Speci men Type: BLOOD SPECIMENOrdering Facility: [facility] Address: [address] [place] [address] Performed By: #### 5 7021-8 ####[facility] [id number] [place] [address] [place] Immature granulocytes/100 WBC (Bld) 0.4 % Normal [facility] Comment on above: Order Comment: Speci men Type: BLOOD SPECIMENOrdering Facility: [facility] Address: [address] [place] [address] Performed By: #### 5 7021-8 ####[facility] [id number] [place] [address] [place] Lymphocytes (Bld) [#/Vol] 0.48 10*3/uL Low 1.00-4.00 [facility] Comment on above: Order Comment: Speci men Type: BLOOD SPECIMENOrdering Facility: [facility] Address: [address] [place] [address] Performed By: #### 5 7021-8 ####[facility] [id number] [place] [address] [place] Lymphocytes/100 WBC (Bld) 6.0 % Normal [facility] Comment on above: Order Comment: Speci men Type: BLOOD SPECIMENOrdering Facility: [facility] Address: [address] [place] [address] Performed By: #### 5 7021-8 ####[facility] [id number] [place] [address] [place] MCH (RBC) [Entitic mass] 31.1 pg Normal 26.0-34.0 [facility] Comment on above: Order Comment: Speci men Type: BLOOD SPECIMENOrdering Facility: [facility] Address: [address] [place] [address] Performed By: #### 5 7021-8 ####[facility] [id number] [place] [address] [place] MCHC (RBC) [Mass/Vol] 34.4 g/dL Normal 30.5-36.0 [facility] Comment on above: Order Comment: Speci men Type: BLOOD SPECIMENOrdering Facility: [facility] Address: [address] [place] [address] Performed By: #### 5 7021-8 ####[facility] [id number] [place] [address] [place] MCV (RBC) [Entitic vol] 90.3 fL Normal 80.0-100.0 [facility] Comment on above: Order Comment: Speci men Type: BLOOD SPECIMENOrdering Facility: [facility] Address: [address] [place] [address] Performed By: #### 5 7021-8 ####[facility] [id number] [place] [address] [place] Monocytes (Bld) [#/Vol] 1.16 10*3/uL High <0.87 [facility] Comment on above: Order Comment: Speci men Type: BLOOD SPECIMENOrdering Facility: [facility] Address: [address] [place] [address] Performed By: #### 5 7021-8 ####[facility] [id number] [place] [address] [place] Monocytes/100 WBC (Bld) 14.4 % Normal [facility] Comment on above: Order Comment: Speci men Type: BLOOD SPECIMENOrdering Facility: [facility] Address: [address] [place] [address] Performed By: #### 5 7021-8 ####[facility] [id number] [place] [address] [place] Neutrophils (Bld) [#/Vol] 5.86 10*3/uL Normal 1.45-7.50 [facility] Comment on above: Order Comment: Speci men Type: BLOOD SPECIMENOrdering Facility: [facility] Address: [address] [place] [address] Performed By: #### 5 7021-8 ####[facility] [id number] [place] [address] [place] Neutrophils/100 WBC (Bld) 72.8 % Normal [facility] Comment on above: Order Comment: Speci men Type: BLOOD SPECIMENOrdering Facility: [facility] Address: [address] [place] [address] Performed By: #### 5 7021-8 ####[facility] [id number] [place] [address] [place] Nucleated RBC (Bld) [#/Vol] 10*3/uL Normal <0.01 [facility] Comment on above: Order Comment: Speci men Type: BLOOD SPECIMENOrdering Facility: [facility] Address: [address] [place] [address] Performed By: #### 5 7021-8 ####[facility] [id number] [place] [address] [place] Nucleated RBC/100 WBC (Bld) [Ratio] 0.0 /100 WBC Normal [facility] Comment on above: Order Comment: Speci men Type: BLOOD SPECIMENOrdering Facility: [facility] Address: [address] [place] [address] Performed By: #### 5 7021-8 ####[facility] [id number] [place] [address] [place] Platelet mean volume (Bld) [Entitic vol] 11.0 fL Normal 9.0-12.7 [facility] Comment on above: Order Comment: Speci men Type: BLOOD SPECIMENOrdering Facility: [facility] Address: [address] [place] [address] Performed By: #### 5 7021-8 ####[facility] [id number] [place] [address] [place] Platelets (Bld) [#/Vol] 173 10*3/uL Normal 150-400 [facility] Comment on above: Order Comment: Speci men Type: BLOOD SPECIMENOrdering Facility: [facility] Address: [address] [place] [address] Performed By: #### 5 7021-8 ####[facility] [id number] [place] [address] [place] RBC (Bld) [#/Vol] 4.44 10*6/uL Normal 4.20-6.00 [facility] Comment on above: Order Comment: Speci men Type: BLOOD SPECIMENOrdering Facility: [facility] Address: [address] [place] [address] Performed By: #### 5 7021-8 ####[facility] [id number] [id number] [address] [place] WBC (Bld) [#/Vol] 8.04 10*3/uL Normal 3.70-11.00 [facility] Comment on above: Order Comment: Speci men Type: BLOOD SPECIMENOrdering Facility: [facility] Address: [address] [place] [address] Performed By: #### 5 7021-8 ####[facility] [id number] [place] [address] [place] [place] CNOVSPon 03-08-2024 CNOVSP Normal [facility] CRP SerPl-mCncon 03-08-2024 CRP [Mass/Vol] 1.8 mg/dL High <0.9 [facility] Comment on above: Order Comment: Speci men Type: BLOOD SPECIMENOrdering Facility: [facility] Address: [address] [place] [address] Performed By: #### 1 988-5 ####[facility] LABCLIA [id number] [place] [address] [place] CRP [Mass/Vol]on 03-08-2024 Interpretation and review of laboratory results Abnormal [facility] Comprehensive metabolic 2000 panelon 03-08-2024 Albumin [Mass/Vol] 4.3 g/dL 3.9 - 4.9 g/dL [facility] ALP [Catalytic activity/Vol] 238 U/L High 38 - 113 U/L [facility] ALT [Catalytic activity/Vol] 18 U/L 10 - 54 U/L [facility] Anion gap [Moles/Vol] 11 mmol/L 9 - 18 mmol/L [facility] AST [Catalytic activity/Vol] 17 U/L 14 - 40 U/L [facility] Bilirubin [Mass/Vol] 0.2 mg/dL 0.2 - 1 .3 mg/dL [facility] Calcium [Mass/Vol] 9.9 mg/dL 8.5 - 10. 2 mg/dL [facility] Chloride [Moles/Vol] 104 mmol/L 97 - 10 5 mmol/L [facility] CO2 [Moles/Vol] 25 mmol/L 22 - 30 mmol/L [facility] Creatinine [Mass/Vol] 0.96 mg/dL 0.73 - 1.22 mg/dL [facility] GFR/1.73 sq M.predicted among non-blacks MDRD (S/P/Bld) [Vol rate/Area] 87 mL/min/{1.73_m2} - PINF [facility] Comment on above: Estimated Glomerular Filtration Rate [...] [Mass/Vol] 93 mg/dL 74 - 99 mg/dL [facility] Comment on above: The [place] Di[employer] Association (ADA) provides guidance for [...] Standards of Medical Care in Diabetes 2016, [place] [employer]. Diabetes Care. 2016.39(Suppl 1). Interpretation and review of laboratory results Abnormal [facility] Potassium [Moles/Vol] 4.2 mmol/L 3.7 - 5.1 mmol/L [facility] Protein [Mass/Vol] 7.6 g/dL 6.3 - 8.0 g/dL [facility] Sodium [Moles/Vol] 140 mmol/L 136 - 144 mmol/L [facility] Urea nitrogen [Mass/Vol] 16 mg/dL 9 - 24 mg/dL [facility] Albumin [Mass/Vol] 4.3 g/dL Normal 3.9-4.9 [facility] Comment on above: Order Comment: Speci men Type: BLOOD SPECIMENOrdering Facility: [facility] Address: [address] [place] [address] Performed By: #### 2 4323-8, 82488-8, 4-1 ####[facility] [id number] [place] [address] [place] ALP [Catalytic activity/Vol] 238 U/L High 38-113 [facility] Comment on above: Order Comment: Speci men Type: BLOOD SPECIMENOrdering Facility: [facility] Address: [address] [place] [address] Performed By: #### 2 4323-8, 12191-6, 3083- ####[facility] [id number] [place] [address] [place] ALT [Catalytic activity/Vol] 18 U/L Normal 10-54 [facility] Comment on above: Order Comment: Speci men Type: BLOOD SPECIMENOrdering Facility: [facility] Address: [address] [place] [address] Performed By: #### 2 4323-8, , 3083-11 ####[facility] [id number] [place] [address] [place] Anion gap [Moles/Vol] 11 mmol/L Normal 9-18 [facility] Comment on above: Order Comment: Speci men Type: BLOOD SPECIMENOrdering Facility: [facility] Address: [address] [place] [address] Performed By: #### 2 4323-8, , 3083-11 ####[facility] [id number] [place] [address] [place] AST [Catalytic activity/Vol] 17 U/L Normal 14-40 [facility] Comment on above: Order Comment: Speci men Type: BLOOD SPECIMENOrdering Facility: [facility] Address: [address] [place] [address] Performed By: #### 2 4323-8, 48850-8, 3083-1 ####[facility] [id number] [address] [address] [place] Bilirubin [Mass/Vol] 0.2 mg/dL Normal 0.2-1.3 [facility] Comment on above: Order Comment: Speci men Type: BLOOD SPECIMENOrdering Facility: [facility] Address: [address] [place], [place] [address] Performed By: #### 2 4323-8, 68131-0, 3083- ####[facility] [id number] [place] [address] [place] Calcium [Mass/Vol] 9.9 mg/dL Normal 8.5-10.2 [facility] Comment on above: Order Comment: Speci men Type: BLOOD SPECIMENOrdering Facility: [facility] Address: [address] [place] [address] Performed By: #### 2 4323-8, , 3083-11 ####[facility] [id number] [place] [address] [place] Chloride [Moles/Vol] 104 mmol/L Normal 97-105 [facility] Comment on above: Order Comment: Speci men Type: BLOOD SPECIMENOrdering Facility: [facility] Address: [address] [place] [address] Performed By: #### 2 4323-8, , 3083- ####[facility] [id number] [place] [id number] [place] CO2 [Moles/Vol] 25 mmol/L Normal 22-30 [facility] Comment on above: Order Comment: Speci men Type: BLOOD SPECIMENOrdering Facility: [facility] Address: [address] [place], [place] [address] Performed By: #### 2 4323-8, 31062-4, 3083-1 ####[facility] [id number] [place] [id number] [place] Creatinine [Mass/Vol] 0.96 mg/dL Normal 0.73-1.22 [facility] Comment on above: Order Comment: Sara randle Type: BLOOD SPECIMENOrdering Facility: [facility] Address: [address] [place] [address] Performed By: #### 2 4323-8, 66093-9, 3083-1 ####[facility] [id number] [place] [address] [place] [facility] Creatinine and Glomerular filtration rate.predicted panel (S/P/Bld) 87 mL/min/1.73m??? Normal >=60 [facility] Comment on above: Order Comment: Sara randle Type: BLOOD SPECIMENOrdering Facility: [facility] Address: [address] [place] [address] Result Comment: Carol mated Glomerular Filtration Rate [...] actual GFR. Performed By: #### 2 4323-8, 06787-8, 3083-11 ####[facility] [id number] [place] [address] [place] Glucose [Mass/Vol] 93 mg/dL Normal 74-99 [facility] Comment on above: Order Comment: Sara randle Type: BLOOD SPECIMENOrdering Facility: [facility] Address: [address] [place] [address] Result Comment: The [place] Diabetes Association (ADA) provides guidance for cutoff [...] Standards of Medical Care in Diabetes 2016, [place] [employer]. Diabetes Care. 2016.39(Suppl 1). Performed By: #### 2 4323-8, 54882-9, 3083- ####[facility] [id number] [place] [address] [place] Potassium [Moles/Vol] 4.2 mmol/L Normal 3.7-5.1 [facility] Comment on above: Order Comment: Speci men Type: BLOOD SPECIMENOrdering Facility: [facility] Address: [address] [place] [address] Performed By: #### 2 4323-8, , 3083-11 ####[facility] [id number] [place] [address] [place] Protein [Mass/Vol] 7.6 g/dL Normal 6.3-8.0 [facility] Comment on above: Order Comment: Speci men Type: BLOOD SPECIMENOrdering Facility: [facility] Address: [address] [place] [address] Performed By: #### 2 4323-8, , 3083-11 ####[facility] [id number] [place] [address] [place] Sodium [Moles/Vol] 140 mmol/L Normal 136-144 [facility] Comment on above: Order Comment: Speci men Type: BLOOD SPECIMENOrdering Facility: [facility] Address: [address] [place] [address] Performed By: #### 2 4323-8, , 3083-11 ####[facility] [id number] [place] [address] [place] Urea nitrogen [Mass/Vol] 16 mg/dL Normal 9-24 [facility] Comment on above: Order Comment: Speci men Type: BLOOD SPECIMENOrdering Facility: [facility] Address: [address] [place] [address] Performed By: #### 2 4323-8, 87194-4, 3083-1 ####[facility] [id number] [place] [address] [place] LACTATE DEHYDROGENASEon 05-0 LDH [Catalytic activity/Vol] 228 U/L High 135 - 225 U/L [facility] LDH SerPl-cCncon 03-08-2024 LDH [Catalytic activity/Vol] 228 U/L High 135-225 [facility] Comment on above: Order Comment: Speci men Type: BLOOD SPECIMENOrdering Facility: [facility] Address: [address] [place] [address] Performed By: #### 2 532-0 ####[facility] [place] [id number] [place] [address] [place] LDH [Catalytic activity/Vol] on 03-08-2024 Interpretation and review of laboratory results Abnormal [facility] MAGNESIUMon 03-08-2024 Magnesium [Mass/Vol] 2.1 mg/dL 1.7 - 2 .3 mg/dL [facility] Magnesium SerPl-mCncon 03-08 Magnesium [Mass/Vol] 2.1 mg/dL Normal 1.7-2.3 [facility] Comment on above: Order Comment: Speci men Type: BLOOD SPECIMENOrdering Facility: [facility] Address: [address] [place] [address] Performed By: #### 2 4323-8, 62351-2, 3083-1 ####[facility] [place] [id number] [place] [address] [place] No Panel Informationon 03-08 Interpretation and review of laboratory results Normal [facility] PHOSPHORUS INORGANICon 03-08 Phosphate [Mass/Vol] 3.6 mg/dL 2.7 - 4 .8 mg/dL [facility] Phosphate [facility]-nc 03-08 Phosphate [Mass/Vol] 3.6 mg/dL Normal 2.7-4.[address] [facility] Comment on above: Order Comment: Speci men Type: BLOOD SPECIMENOrdering Facility: [facility] Address: [address] [place] [address] Performed By: #### 2 777-1 ####[facility] [id number] [place] [address] [place] Phosphate [Mass/Vol]on 03-08 Interpretation and review of laboratory results Normal [facility] URIC ACIDon 03-08-2024 Urate [Mass/Vol] 6.5 mg/dL 4.0 - 8.1 mg/dL [facility] Urate [facility] Urate [Mass/Vol] 6.5 mg/dL Normal 4.0-8.1 [facility] Comment on above: Order Comment: Speci men Type: BLOOD SPECIMENOrdering Facility: [facility] Address: [address] [place] [address] Performed By: #### 2 4323-8, 36492-9, 3084-1 ####[facility] [id number] [place] [address] [place] NURSING PROGon 03-02-2024 NURSING PROG Normal [facility] CNPNon 03-01-2024 CNPN Normal [facility] CNPNon 02-26-2024 CNPN Normal [facility] CNPNon 02-25-2024 CNPN Normal [facility] ACTIVATED PARTIAL THROMBOPLA STIN TIMEon 02-24-2024 aPTT Coag (PPP) [Time] 24.0 s [facility] CBC W Auto Differential pane l (Bld)on 02-24-2024 Basophils (Bld) [#/Vol] 0.07 10*3/uL NINF [facility] Basophils/100 WBC (Bld) 1.2 % [facility] Differential cell count method Nom (Bld) Auto [facility] Eosinophils (Bld) [#/Vol] 0.27 10*3/uL [facility] Eosinophils/100 WBC (Bld) 4.5 % [facility] Erythrocyte distribution width (RBC) [Ratio] 13.2 % 11.5 - 15.0 % [facility] Hematocrit (Bld) [Volume fraction] 40.2 % 39.0 - 51.0 % [facility] Hemoglobin (Bld) [Mass/Vol] 13.3 g/dL 13.0 - 17.0 g/dL [facility] Immature granulocytes (Bld) [#/Vol] 0.03 10*3/uL [facility] Immature granulocytes/100 WBC (Bld) 0.5 % [facility] Interpretation and review of laboratory results Abnormal [facility] Lymphocytes (Bld) [#/Vol] 0.46 10*3/uL Low [facility] Lymphocytes/100 WBC (Bld) 7.6 % [facility] MCH (RBC) [Entitic mass] 31.1 pg 26.0 - 34.0 pg [facility] MCHC (RBC) [Mass/Vol] 33.1 g/dL 30.5 - 36.0 g/dL [facility] MCV (RBC) [Entitic vol] 93.9 fL 80.0 - 100.0 fL [facility] Monocytes (Bld) [#/Vol] 0.80 10*3/uL [facility] Monocytes/100 WBC (Bld) 13.3 % [facility] Neutrophils (Bld) [#/Vol] 4.39 10*3/uL [facility] Neutrophils/100 WBC (Bld) 72.9 % [facility] Nucleated RBC (Bld) [#/Vol] [facility] Nucleated RBC/100 WBC (Bld) [Ratio] 0.0 % /100 WBC [facility] Platelet mean volume (Bld) [Entitic vol] 9.8 fL 9.0 - 12.7 fL [facility] Platelets (Bld) [#/Vol] 243 10*3/uL [facility] RBC (Bld) [#/Vol] 4.28 10*6/uL 4.20 - 6.00 m/uL [facility] WBC (Bld) [#/Vol] 6.02 10*3/uL [facility] Basophils (Bld) [#/Vol] 0.07 10*3/uL Normal <0.11 [facility] Comment on above: Order Comment: Speci men Type: BLOOD SPECIMENOrdering Facility: [facility] Address: [address] [place] [address] Performed By: #### 5 7021-8 ####[facility] [id number] [place] [address] [place] Basophils/100 WBC (Bld) 1.2 % Normal [facility] Comment on above: Order Comment: Speci men Type: BLOOD SPECIMENOrdering Facility: [facility] Address: [address] [place] [address] Performed By: #### 5 7021-8 ####[facility] [id number] [place] [address] [place] Differential cell count method Nom (Bld) Auto Normal [facility] Comment on above: Order Comment: Speci men Type: BLOOD SPECIMENOrdering Facility: [facility] Address: [address] [place] [address] Performed By: #### 5 7021-8 ####[facility] [id number] [place] [address] [place] Eosinophils (Bld) [#/Vol] 0.27 10*3/uL Normal <0.46 [facility] Comment on above: Order Comment: Speci men Type: BLOOD SPECIMENOrdering Facility: [facility] Address: [address] [place] [address] Performed By: #### 5 7021-8 ####[facility] [id number] [place] [address] [place] Eosinophils/100 WBC (Bld) 4.5 % Normal [facility] Comment on above: Order Comment: Speci men Type: BLOOD SPECIMENOrdering Facility: [facility] Address: [address] [place] [address] Performed By: #### 5 7021-8 ####[facility] [id number] [place] [address] [place] Erythrocyte distribution width (RBC) [Ratio] 13.2 % Normal 11.5-15.0 [facility] Comment on above: Order Comment: Speci men Type: BLOOD SPECIMENOrdering Facility: [facility] Address: [address] [place] [address] Performed By: #### 5 7021-8 ####[facility] [id number] [place] [address] [place] Hematocrit (Bld) [Volume fraction] 40.2 % Normal 39.0-51.0 [facility] Comment on above: Order Comment: Speci men Type: BLOOD SPECIMENOrdering Facility: [facility] Address: [address] [place] [address] Performed By: #### 5 7021-8 ####[facility] [place] [id number] [place] [address] [place] Hemoglobin (Bld) [Mass/Vol] 13.3 g/dL Normal 13.0-17.0 [facility] Comment on above: Order Comment: Speci men Type: BLOOD SPECIMENOrdering Facility: [facility] Address: [address] [place] [address] Performed By: #### 5 7021-8 ####[facility] [id number] [place] [address] [place] Immature granulocytes (Bld) [#/Vol] 0.03 10*3/uL Normal <0.10 [facility] Comment on above: Order Comment: Speci men Type: BLOOD SPECIMENOrdering Facility: [facility] Address: [address] [place] [address] Performed By: #### 5 7021-8 ####[facility] [id number] [place] [address] [place] Immature granulocytes/100 WBC (Bld) 0.5 % Normal [facility] Comment on above: Order Comment: Speci men Type: BLOOD SPECIMENOrdering Facility: [facility] Address: [address] [place] [address] Performed By: #### 5 7021-8 ####[facility] [id number] [place] [address] [place] Lymphocytes (Bld) [#/Vol] 0.46 10*3/uL Low 1.00-4.00 [facility] Comment on above: Order Comment: Speci men Type: BLOOD SPECIMENOrdering Facility: [facility] Address: [address] [place] [address] Performed By: #### 5 7021-8 ####[facility] [id number] [place] [address] [place] Lymphocytes/100 WBC (Bld) 7.6 % Normal [facility] Comment on above: Order Comment: Speci men Type: BLOOD SPECIMENOrdering Facility: [facility] Address: [address] [place] [address] Performed By: #### 5 7021-8 ####[facility] [id number] [place] [address] [place] MCH (RBC) [Entitic mass] 31.1 pg Normal 26.0-34.0 [facility] Comment on above: Order Comment: Speci men Type: BLOOD SPECIMENOrdering Facility: [facility] Address: [address] [place] [address] Performed By: #### 5 7021-8 ####[facility] [id number] [place] [address] [place] MCHC (RBC) [Mass/Vol] 33.1 g/dL Normal 30.5-36.0 [facility] Comment on above: Order Comment: Speci men Type: BLOOD SPECIMENOrdering Facility: [facility] Address: [address] [place], [place] [address] Performed By: #### 5 7021-8 ####[facility] [id number] [place] [address] [place] MCV (RBC) [Entitic vol] 93.9 fL Normal 80.0-100.0 [facility] Comment on above: Order Comment: Speci men Type: BLOOD SPECIMENOrdering Facility: [facility] Address: [address] [place] [address] Performed By: #### 5 7021-8 ####[facility] [id number] [place] [address] [place] Monocytes (Bld) [#/Vol] 0.80 10*3/uL Normal <0.87 [facility] Comment on above: Order Comment: Speci men Type: BLOOD SPECIMENOrdering Facility: [facility] Address: [address] [place] [address] Performed By: #### 5 7021-8 ####[facility] [place] [id number] [place] [address] [place] Monocytes/100 WBC (Bld) 13.3 % Normal [facility] Comment on above: Order Comment: Speci men Type: BLOOD SPECIMENOrdering Facility: [facility] Address: [address] [place] [address] Performed By: #### 5 7021-8 ####[facility] [id number] [place] [address] [place] Neutrophils (Bld) [#/Vol] 4.39 10*3/uL Normal 1.45-7.50 [facility] Comment on above: Order Comment: Speci men Type: BLOOD SPECIMENOrdering Facility: [facility] Address: [address] [place] [address] Performed By: #### 5 7021-8 ####[facility] [id number] [id number] [address] [place] Neutrophils/100 WBC (Bld) 72.9 % Normal [facility] Comment on above: Order Comment: Speci men Type: BLOOD SPECIMENOrdering Facility: [facility] Address: [address] [place] [address] Performed By: #### 5 7021-8 ####[facility] [id number] [place] [address] [place] Nucleated RBC (Bld) [#/Vol] 10*3/uL Normal <0.01 [facility] Comment on above: Order Comment: Speci men Type: BLOOD SPECIMENOrdering Facility: [facility] Address: [address] [place] [address] Performed By: #### 5 7021-8 ####[facility] [id number] [place] [address] [place] Nucleated RBC/100 WBC (Bld) [Ratio] 0.0 /100 WBC Normal [facility] Comment on above: Order Comment: Speci men Type: BLOOD SPECIMENOrdering Facility: [facility] Address: [address] [place] [address] Performed By: #### 5 7021-8 ####[facility] [id number] [place] [address] [place] Platelet mean volume (Bld) [Entitic vol] 9.8 fL Normal 9.0-12.7 [facility] Comment on above: Order Comment: Speci men Type: BLOOD SPECIMENOrdering Facility: [facility] Address: [address] [place] [address] Performed By: #### 5 7021-8 ####[facility] [place] [id number] [place] [address] [place] Platelets (Bld) [#/Vol] 243 10*3/uL Normal 150-400 [facility] Comment on above: Order Comment: Speci men Type: BLOOD SPECIMENOrdering Facility: [facility] Address: [address] [place] [address] Performed By: #### 5 7021-8 ####[facility] [id number] [place] [address] [place] RBC (Bld) [#/Vol] 4.28 10*6/uL Normal 4.20-6.00 [facility] Comment on above: Order Comment: Speci men Type: BLOOD SPECIMENOrdering Facility: [facility] Address: [address] [place] [address] Performed By: #### 5 7021-8 ####[facility] [id number] [place] [address] [place] WBC (Bld) [#/Vol] 6.02 10*3/uL Normal 3.70-11.00 [facility] Comment on above: Order Comment: Speci men Type: BLOOD SPECIMENOrdering Facility: [facility] Address: [address] [place] [address] Performed By: #### 5 7021-8 ####[facility] [id number] [place] [address] [place] CNNURSEon 02-24-2024 CNNURSE Normal [facility] metabolic 2000 panelon 02-24-2024 Albumin [Mass/Vol] 4.2 g/dL 3.9 - 4.9 g/dL [facility] ALP [Catalytic activity/Vol] 201 U/L High 38 - 113 U/L [facility] ALT [Catalytic activity/Vol] 18 U/L 10 - 54 U/L [facility] Anion gap [Moles/Vol] 11 mmol/L 9 - 18 mmol/L [facility] AST [Catalytic activity/Vol] 19 U/L 14 - 40 U/L [facility] Bilirubin [Mass/Vol] 0.2 mg/dL 0.2 - 1 .3 mg/dL [facility] Calcium [Mass/Vol] 9.6 mg/dL 8.5 - 10. 2 mg/dL [facility] Chloride [Moles/Vol] 107 mmol/L High 97 - 10 5 mmol/L [facility] CO2 [Moles/Vol] 23 mmol/L 22 - 30 mmol/L [facility] Creatinine [Mass/Vol] 0.94 mg/dL 0.73 - 1.22 mg/dL [facility] GFR/1.73 sq M.predicted among non-blacks MDRD (S/P/Bld) [Vol rate/Area] 89 mL/min/{1.73_m2} - PINF [facility] Comment on above: Estimated Glomerular Filtration Rate [...] 100 mg/dL High 74 - 99 mg/dL [facility] Comment on above: The [place] [employer] (ADA) provides guidance for [...] Standards of Medical Care in Diabetes 2016, [place] [employer]. Diabetes Care. 2016.39(Suppl 1). Interpretation and review of laboratory results Abnormal [facility] Potassium [Moles/Vol] 4.6 mmol/L 3.7 - 5.1 mmol/L [facility] Protein [Mass/Vol] 7.5 g/dL 6.3 - 8.0 g/dL [facility] Sodium [Moles/Vol] 141 mmol/L 136 - 144 mmol/L [facility] Urea nitrogen [Mass/Vol] 15 mg/dL 9 - 24 mg/dL [facility] Albumin [Mass/Vol] 4.2 g/dL Normal 3.9-4.9 [facility] Comment on above: Order Comment: Speci men Type: BLOOD SPECIMENOrdering Facility: [facility] Address: [address] [place], [place] [address] Performed By: #### 2 4323-8, ####[facility] [id number] [place] [address] [place] ALP [Catalytic activity/Vol] 201 U/L High 38-113 [facility] Comment on above: Order Comment: Speci men Type: BLOOD SPECIMENOrdering Facility: [facility] Address: [address] [place] [address] Performed By: #### 2 4323-8, ####[facility] [id number] [place] [address] [place] ALT [Catalytic activity/Vol] 18 U/L Normal 10-54 [facility] Comment on above: Order Comment: Speci men Type: BLOOD SPECIMENOrdering Facility: [facility] Address: [address] [place] [address] Performed By: #### 2 4323-8, ####[facility] [id number] [place] [address] [place] Anion gap [Moles/Vol] 11 mmol/L Normal 9-18 [facility] Comment on above: Order Comment: Speci men Type: BLOOD SPECIMENOrdering Facility: [facility] Address: [address] [place] [address] Performed By: #### 2 4323-8, ####[facility] [id number] [place] [address] [place] AST [Catalytic activity/Vol] 19 U/L Normal 14-40 [facility] Comment on above: Order Comment: Speci men Type: BLOOD SPECIMENOrdering Facility: [facility] Address: [address] [place], [place] [address] Performed By: #### 2 4323-8, 97296-0 ####[facility] [id number] [place] [address] [place] Bilirubin [Mass/Vol] 0.2 mg/dL Normal 0.2-1.3 [facility] Comment on above: Order Comment: Speci men Type: BLOOD SPECIMENOrdering Facility: [facility] Address: [address] [place] [address] Performed By: #### 2 4323-8, ####[facility] [id number] [place] [address] [place] Calcium [Mass/Vol] 9.6 mg/dL Normal 8.5-10.2 [facility] Comment on above: Order Comment: Speci men Type: BLOOD SPECIMENOrdering Facility: [facility] Address: [address] [place] [address] Performed By: #### 2 4323-8, ####[facility] [id number] [place] [address] [place] Chloride [Moles/Vol] 107 mmol/L High 97-105 [facility] Comment on above: Order Comment: Speci men Type: BLOOD SPECIMENOrdering Facility: [facility] Address: [address] [place] [address] Performed By: #### 2 4323-8, ####[facility] [id number] [place] [address] [place] CO2 [Moles/Vol] 23 mmol/L Normal 22-30 [facility] Comment on above: Order Comment: Speci men Type: BLOOD SPECIMENOrdering Facility: [facility] Address: [address] [place] [address] Performed By: #### 2 4323-8, ####[facility] [id number] [place] [address] [place] Creatinine [Mass/Vol] 0.94 mg/dL Normal 0.73-1.22 [facility] Comment on above: Order Comment: Sara randle Type: BLOOD SPECIMENOrdering Facility: [facility] Address: [address] [place] [address] Performed By: #### 2 4323-8, ####[facility] [id number] [place] [address] [place] Creatinine and Glomerular filtration rate.predicted panel (S/P/Bld) 89 mL/min/1.73m??? Normal >=60 [facility] Comment on above: Order Comment: Sara randle Type: BLOOD SPECIMENOrdering Facility: [facility] Address: [address] [place] [address] Result Comment: Carol mated Glomerular Filtration Rate [...] By: #### 2 4323-8, ####[facility] [id number] [place] [address] [place] Glucose [Mass/Vol] 100 mg/dL High 74-99 [facility] Comment on above: Order Comment: Sara randle Type: BLOOD SPECIMENOrdering Facility: [facility] Address: [address] [place] [address] Result Comment: The [place] [employer] (ADA) provides guidance for cutoff [...] Standards of Medical Care in Diabetes 2016, [employer] [employer]. Diabetes Care. 2016.39(Suppl 1). Performed By: #### 2 4323-8, ####[facility] [id number] [place] [address] [place] Potassium [Moles/Vol] 4.6 mmol/L Normal 3.7-5.1 [facility] Comment on above: Order Comment: Speci men Type: BLOOD SPECIMENOrdering Facility: [facility] Address: [address] [place] [address] Performed By: #### 2 4322-8, ####[facility] [id number] [place] [address] [place] Protein [Mass/Vol] 7.5 g/dL Normal 6.3-8.0 [facility] Comment on above: Order Comment: Speci men Type: BLOOD SPECIMENOrdering Facility: [facility] Address: [address] [place] [id number] Performed By: #### 2 8, ####[facility] [id number] [place] [address] [place] Sodium [Moles/Vol] 141 mmol/L Normal 136-144 [facility] Comment on above: Order Comment: Speci men Type: BLOOD SPECIMENOrdering Facility: [facility] Address: [address] [place] [address] Performed By: #### 2 3-8, ####[facility] [id number] [place] [address] [place] Urea nitrogen [Mass/Vol] 15 mg/dL Normal 9-24 [facility] Comment on above: Order Comment: Speci men Type: BLOOD SPECIMENOrdering Facility: [facility] Address: [address] [place] [address] Performed By: #### 2 4323-8, 39683-2 ####[facility] [id number] [place] [address] [place] D dimer FEU PPP-mCncon 02-23 Fibrin D-dimer FEU (PPP) [Mass/Vol] 780 ng/mL FEU High <500 [facility] Comment on above: Order Comment: Speci men Type: BLOOD SPECIMENOrdering Facility: [facility] Address: [address] [place] [address] Performed By: #### 4 8065-7, 3255-7, 08755-2 ####[facility] [id number] [address] [place] D-DIMERon 02-24-2024 Fibrin D-dimer FEU (PPP) [Mass/Vol] 780 High NINF [facility] ECG COMPLETEon 02-24-2024 ECG COMPLETE Normal [facility] ESR Westergren method (Bld) [Velocity]on 02-24-2024 ESR (Bld) [Velocity] 26 mm/h High [facility] Interpretation and review of laboratory results Abnormal [facility] ESR (Bld) [Velocity] 26 mm/h High 0-15 [facility] Comment on above: Order Comment: Speci men Type: BLOOD SPECIMENOrdering Facility: [facility] Address: [address] [place] [address] Performed By: #### 4 537-7 ####[facility] [id number] [place] [address] [place] FIBRINOGENon 02-24-2024 Fibrinogen Coag (PPP) [Mass/Vol] 432 mg/dL High 200 - 400 mg/dL [facility] Fibrin D-dimer FEU (PPP) [Ma ss/Vol]on 02-24-2024 D Dimer Age-related Cutoff 670 ng/mL FEU [facility] 500 ng/mL FEU is the D Dimer [...] et al. Donna Int Med 2016 165:253. [facility] D DIMER AGE-RELATED CUTOFF 670 ng/mL FEU Normal [facility] Comment on above: Order Comment: Specjos randle Type: BLOOD SPECIMENOrdering Facility: [facility] Address: [address] [place] [address] Performed By: #### 4 8065-7, 3255-7, 81543-1 ####[facility] [id number] [place] [address] [place] Fibrinogen PPP-mCncon 2023 Fibrinogen Coag (PPP) [Mass/Vol] 432 mg/dL High 200-400 [facility] Comment on above: Order Comment: Sara randle Type: BLOOD SPECIMENOrdering Facility: [facility] Address: [address] [place] [address] Performed By: #### 4 8065-7, 3255-7, 40897-9 ####[facility] LABIA [id number] [place] [address] [place] HBV surface Ab Ql (S)Ordered By: Neli Champagne on 02-24-2024 HBV surface Ab Qn (S) mIU/mL [facility] Comment on above: <8 mIU/mL: No serolo gical evidence of immunity to Hepatitis B Virus. >/= 8 to <12 mIU/mL: No serological evidence of immunity to Hepatitis B Virus. >/= 12 mIU/mL: Consistent with serological evidence of immunity to Hepatitis B Virus. [facility] HBV surface Ab Ql (S)on 02-02 HBV surface Ab Qn (S) <8.00 Normal [facility] Comment on above: Order Comment: Speci men Type: BLOOD SPECIMENOrdering Facility: [facility] Address: [address] [place] [address] Result Comment: <8 m IU/mL: No serological evidence of immunity to Hepatitis B Virus.>/= 8 to <12 mIU/mL: No serological evidence of immunity to Hepatitis B Virus.>/= 12 mIU/mL: Consistent with serological evidence of immunity to Hepatitis B Virus. Performed By: #### 2 2322-2 ####[facility] LABIA [id number] [place] [address] [place] HBV surface Ab Ser Qlon 02-02 HBV surface Ab Ql (S) Negative Normal [facility] Comment on above: Order Comment: Speci men Type: BLOOD SPECIMENOrdering Facility: [facility] Address: [address] [place] [address] Result Comment: No s erological evidence of immunity to Hepatitis B Virus. Performed By: #### 2 2322-2 ####[facility] LABIA [id number] [place] [address] [place] HEPATITIS B SURFACE ANTIBODY Ordered By: Neli Champagne on 02-24-2024 HBV surface Ab Ql (S) Negative [facility] Comment on above: No serological evide nce of immunity to Hepatitis B Virus. IDM PANEL ADULTon 02-24-2024 ANTI-HBC Negative Normal Negative/N on-reactiv e [facility] Comment on above: Order Comment: Speci men Type: BLOOD SPECIMENOrdering Facility: [facility] Address: [address] [place] [address] Performed By: #### I DMAD ####[facility] LABCLIA [id number] [place] [address] [place] ANTI-HCV Negative Normal Negative/N on-reactiv e [facility] Comment on above: Order Comment: Speci men Type: BLOOD SPECIMENOrdering Facility: [facility] Address: [address] [place] [address] Performed By: #### I DMAD ####[facility] LABCLIA [id number] [place] [address] [place] ANTI-HTLV I/II Negative Normal Negative/N on-reactiv e [facility] Comment on above: Order Comment: Speci men Type: BLOOD SPECIMENOrdering Facility: [facility] Address: [address] [place] [address] Performed By: #### I DMAD ####[facility] LABCLIA [id number] [place] [address] [place] CHAGAS Negative Normal Negative/N on-reactiv e [facility] Comment on above: Order Comment: Speci men Type: BLOOD SPECIMENOrdering Facility: [facility] Address: [address] [place] [address] Performed By: #### I DMAD ####[facility] LABCLIA [id number] [place] [address] [place] CMV Negative Normal Negative/N on-reactiv e [facility] Comment on above: Order Comment: Speci men Type: BLOOD SPECIMENOrdering Facility: [facility] Address: [address] [place] [address] Performed By: #### I DMAD ####[facility] LABCLIA [id number] [place] [address] [place] EXPIRATION OF IDM 03/25/2024 [facility] Comment on above: Order Comment: Speci men Type: BLOOD SPECIMENOrdering Facility: [facility] Address: [address] [place] [address] Performed By: #### I DMAD ####[facility] LABCLIA [id number] [place] [address] [place] HBSAG Negative Normal Negative/N on-reactiv e [facility] Comment on above: Order Comment: Speci men Type: BLOOD SPECIMENOrdering Facility: [facility] Address: [address] [place] [address] Performed By: #### I DMAD ####[facility] LABCLIA [id number] [place] [address] [place] HBVNAT Negative Normal Negative/N on-reactiv e [facility] Comment on above: Order Comment: Speci men Type: BLOOD SPECIMENOrdering Facility: [facility] Address: [address] [place] [address] Performed By: #### I DMAD ####[facility] LABCLIA [id number] [place] [address] [place] HCVNAT Negative Normal Negative/N on-reactiv e [facility] Comment on above: Order Comment: Speci men Type: BLOOD SPECIMENOrdering Facility: [facility] Address: [address] [place] [address] Performed By: #### I DMAD ####[facility] LABCLIA [id number] [place] [address] [place] HIV 1+2 Ab Ql (S donor) Negative Normal Negative/N on-reactiv e [facility] Comment on above: Order Comment: Speci men Type: BLOOD SPECIMENOrdering Facility: [facility] Address: [address] [place], [place] [address] Performed By: #### I DMAD ####[facility] LABCLIA [id number] [place] [address] [place] HIVNAT Negative Normal Negative/N on-reactiv e [facility] Comment on above: Order Comment: Speci men Type: BLOOD SPECIMENOrdering Facility: [facility] Address: [address] [place] [address] Performed By: #### I DMAD ####[facility] LABCLIA [id number] [place] [address] [place] STS Negative Normal Negative/N on-reactiv e [facility] Comment on above: Order Comment: Speci men Type: BLOOD SPECIMENOrdering Facility: [facility] Address: [address] [place] [address] Performed By: #### I DMAD ####[facility] LABCLIA [id number] [place] [address] [place] WNVNAT Negative Normal Negative/N on-reactiv e [facility] Comment on above: Order Comment: Speci men Type: BLOOD SPECIMENOrdering Facility: [facility] Address: [address] [place] [address] Performed By: #### I DMAD ####[facility] LABCLIA [id number] [place] [address] [place] IMMUNOGLOBULINS,IGG,IGA,IGMo n 02-24-2024 IgA [Mass/Vol] 175 mg/dL 70 - 400 mg/dL [facility] IgG [Mass/Vol] 1258 mg/dL 700 - 1600 mg/dL [facility] IgM [Mass/Vol] 15 mg/dL Low 40 - 230 mg/dL [facility] Interpretation and review of laboratory results Abnormal [facility] IgA [Mass/Vol] 175 mg/dL Normal 70-400 [facility] Comment on above: Order Comment: Speci men Type: BLOOD SPECIMENOrdering Facility: [facility] Address: [address] [place] [address] Performed By: #### S ERIMM ####[facility] LABCLIA [id number] [place] [address] [place] IgG [Mass/Vol] 1258 mg/dL Normal 700-1600 [facility] Comment on above: Order Comment: Speci men Type: BLOOD SPECIMENOrdering Facility: [facility] Address: [address] [place] [address] Performed By: #### S ERIMM ####[facility] LABIA [id number] [place] [address] [place] IgM [Mass/Vol] 15 mg/dL Low 40-230 [facility] Comment on above: Order Comment: Speci men Type: BLOOD SPECIMENOrdering Facility: [facility] Address: [address] [place] [address] Performed By: #### S ERIMM ####[facility] LABCLIA [id number] [place] [address] [place] LACTATE DEHYDROGENASEon 02-02 LDH [Catalytic activity/Vol] 205 U/L 135 - 225 U/L [facility] LDH SerPl-cCncon 02-24-2024 LDH [Catalytic activity/Vol] 205 U/L Normal 135-225 [facility] Comment on above: Order Comment: Speci men Type: BLOOD SPECIMENOrdering Facility: [facility] Address: [address] [place] [address] Performed By: #### 2 532-0 ####[facility] [id number] [place] [address] [place] LDH [Catalytic activity/Vol] on 02-24-2024 Interpretation and review of laboratory results Normal [facility] MAGNESIUMon 02-24-2024 Magnesium [Mass/Vol] 2.2 mg/dL 1.7 - 2 .3 mg/dL [facility] Magnesium SerPl-mCncon 02-23 Magnesium [Mass/Vol] 2.2 mg/dL Normal 1.7-2.[address] [facility] Comment on above: Order Comment: Speci men Type: BLOOD SPECIMENOrdering Facility: [facility] Address: [address] [place] [address] Performed By: #### 2 4323-8, 18930-3 ####[facility] [id number] [place] [address] [place] Magnesium [Mass/Vol]on 02-23 Interpretation and review of laboratory results Normal [facility] No Panel Informationon 02-23 [facility] Interpretation and review of laboratory results Abnormal [facility] PT panel Coag (PPP)on 2023 INR Coag (PPP) [Relative time] 1.1 {INR} 0.9 - 1.3 [facility] Comment on above: Vitamin K Antagonist (VKA) Therapeutic Range: INR 2 to 3 (Target INR of 2.5) Note: For patients treated with VKA drugs, such as warfarin, the [place] [employer] 2012 Guideline recommends [...] Chest 2012, 141:7S-47S Chelsie RA, et al. [facility] 2017, 70: 252-289 Interpretation and review of laboratory results Normal [facility] PT Coag (PPP) [Time] 11.3 s [facility] INR Coag (PPP) [Relative time] 1.1 {INR} Normal 0.9-1.3 [facility] Comment on above: Order Comment: Speci men Type: BLOOD SPECIMENOrdering Facility: [facility] Address: [address] [place] [address] Result Comment: Anca min K Antagonist (VKA) Therapeutic Range: INR 2 to 3 (Target INR of 2.5)Note: For patients treated with VKA drugs, such as warfarin, the [place] [employer] 2012 Guideline recommends [...] al. Chest 2012, 141:7S-47SNishthania RA, et al. [facility] 2017, 70: 252-289 Performed By: #### 3 4528-0 ####[facility] LABCLIA [id number] [place] [address] [place] PT Coag (PPP) [Time] 11.3 s Normal 9.7-13.0 [facility] Comment on above: Order Comment: Speci men Type: BLOOD SPECIMENOrdering Facility: [facility] Address: [address] [place] [address] Performed By: #### 3 4528-0 ####[facility] LABIA [id number] [place] [address] [place] TYPE + SCREENon 02-24-2024 ABO group Nom (Bld) B [facility] Blood group antibody screen Ql Negative [facility] HIstorical Ab Scr Status Negative [facility] Rh Nom (Bld) Negative [facility] Type and Screen Expiration 02/27/2024 23:59 [facility] ABO B Normal [facility] Comment on above: Order Comment: Speci men Type: BLOOD SPECIMENOrdering Facility: [facility] Address: [address] [place] [address] Performed By: #### T SCR ####[facility] BLOOD BANKCLIA [id number] [address] [place] HISTORICAL AB SCR STATUS Negative Normal [facility] Comment on above: Order Comment: Speci men Type: BLOOD SPECIMENOrdering Facility: [facility] Address: [address] [place] [address] Performed By: #### T SCR ####[facility] BLOOD BANKIA [id number] [address] [place] Rh Nom (Bld) Negative Normal [facility] Comment on above: Order Comment: Speci men Type: BLOOD SPECIMENOrdering Facility: [facility] Address: [address] [place] [address] Performed By: #### T SCR ####[facility] BLOOD BANKCLIA [id number] [address] OF [facility] TYPE AND SCREEN EXPIRATION 02/27/2024 23:59 Normal [facility] Comment on above: Order Comment: Speci men Type: BLOOD SPECIMENOrdering Facility: [facility] Address: [address] [place] [address] Performed By: #### T SCR ####[facility] BLOOD BANKCLIA [id number] [address] [place] aPTT Coag (PPP) [Time]on Interpretation and review of laboratory results Normal [facility] Unfractionated Hepar in Therapeutic Ranges: Standard Heparin [...] laboratory APTT reagent in use throughout the [facility]. [facility] aPTT PPPon 02-24-2024 aPTT Coag (PPP) [Time] 24.0 s Normal 23.0-32.4 [facility] Comment on above: Order Comment: Speci men Type: BLOOD SPECIMENOrdering Facility: [facility] Address: [address] [place] [address] Performed By: #### 4 8065-7, 3255-7, 54507-9 ####[facility] LABCLIA [id number] [place] [address] [place] CNPNon 02-18-2024 CNPN Normal [facility] CNOVSPon 02-12-2024 CNOVSP Normal [facility] CNOVSPon 02-02-2024 CNOVSP Normal [facility] CNPTOUTREACHon 02-02-2024 CNPTOUTREACH Normal [facility] PET+CT Guidance for localiza tion of tumor of Skull base to mid-thigh-- W [id number] IVOrdered By: Ccf Provider on 02-02-2024 Interpretation and review of laboratory results Abnormal [facility] Radiology Result ACTIONABLE Abnormal [facility] Comment on above: This report contains [...] contact your provider for the next steps. [facility] PET+CT Guidance for localiza tion of tumor [...] be communicated with the ordering provider via [employer] staff message or phone message by Imaging [...] any questions regarding this interpretation, please call [phone]. If you are unable to reach us at the number above, please feel free to [facility] [phone]. DIVISION OF RADIOLOGY * * *Final Report* [...] * Radiopharmaceutical Dose: 9.9 mCi * Radiopharmaceutical: N18-Iucxycmqmgghsbgdyy (FDG) COMPARISON: [facility] PET/CT 11/18/2023 CORRELATION: No relevant imaging available RESULT: REFERENCES: SUV reference values: * Blood pool (descending aorta) activity: SUVmax 3.1 * Background liver activity: SUVmax 4.1; SUVmean 2.9 Dietitian Therapeutic (topogram) images: No additional findings. Notes and [...] No abnormal uptake. DIVISION OF RADIOLOGY Provider, [facility] - 02/02/2024 * * *Final Report* * [...] * Radiopharmaceutical Dose: 9.9 mCi * Radiopharmaceutical: H52-Lvzqrdiqfrnnuzmqhj (FDG) COMPARISON: [facility] PET/CT 11/18/2023 CORRELATION: No relevant imaging available RESULT: REFERENCES: SUV reference values: * Blood pool (descending aorta) activity: SUVmax 3.1 * Background liver activity: SUVmax 4.1; SUVmean 2.9 Dietitian Therapeutic (topogram) images: No additional findings. Notes and [...] nodes, compatible with (more content not included)... [facility] GLUCOSE, BLOOD (POC)on 01-29 Glucose [Mass/Vol] 91 mg/dL 74 - 99 mg/dL [facility] Comment on above: Location:[facility], [address] [place] [address] , [place], [place], [facility] The Accu-Chek Inform II glucose meter [...] blood gas instrument) in the above situations. [facility] NM PET/CT SKULL-THIGH SUBQon 01-30-2024 NM PET/CT SKULL-THIGH SUBQ Invalid Interpretation Code [facility] PET+CT Guidance for localiza tion of tumor of Skull base to mid-thigh-- W [id number] Bella 01-30-2024 Radiology Study observation (narrative) [facility] CNPNon 01-29-2024 CNPN Normal [facility] Pathology Noteon 01-29-2024 Pathology Note [id number]#1.00TIFF Normal [facility] COMPREHENSIVE METABOLIC PANE Cheng 01-28-2024 Albumin [Mass/Vol] 4.2 g/dL Normal 3.5-5.0 [facility] Comment on above: Order Comment: Voor[place] ees Performed By: #### C MPN, LDO, URICB #### [facility] (DEFAULT) [address] [place] [address] ALP [Catalytic activity/Vol] 165 U/L High 32-126 [facility] Comment on above: Order Comment: [place] e[place] Performed By: #### C MPN, LDO, URICB #### [facility] (DEFAULT) [address] [place] [address]24 ALT [Catalytic activity/Vol] 24 U/L Normal 10-52 [facility] Comment on above: Order Comment: [place] e[place] Performed By: #### C MPN, LDO, URICB #### [facility] (DEFAULT) [address] [place] [address] 35706 Anion gap [Moles/Vol] 13 mmol/L Normal 7-17 [facility] Comment on above: Order Comment: [place] Performed By: #### C MPN, LDO, URICB #### [facility] (DEFAULT) [address] [place] [address] 81394 AST [Catalytic activity/Vol] 22 U/L Normal 10-39 [facility] Comment on above: Order Comment: [place] e[place] Performed By: #### C MPN, LDO, URICB #### [facility] (DEFAULT) [address] [place] [address] 36973 Bilirubin [Mass/Vol] 0.4 mg/dL Normal <1.5 [facility] Comment on above: Order Comment: [place] e[place] Performed By: #### C MPN, LDO, URICB #### [facility] (DEFAULT) [address] [place] [address] 87777 Calcium [Mass/Vol] 9.6 mg/dL Normal 8.6-10.5 [facility] Comment on above: Order Comment: [place] e[place] Performed By: #### C MPN, LDO, URICB #### [facility] (DEFAULT) [address] [place] [address] 95819 Chloride [Moles/Vol] 107 mmol/L Normal 98-108 [facility] Comment on above: Order Comment: [place] e[place] Performed By: #### C MPN, LDO, URICB #### [facility] (DEFAULT) [address] [place] [address] 15614 CO2 [Moles/Vol] 23 mmol/L Normal 21-31 [facility] Comment on above: Order Comment: [place] ees Performed By: #### C MPN, LDO, URICB #### [facility] (DEFAULT) [address] [place] [address] 10026 Creatinine [Mass/Vol] 1.08 mg/dL Normal 0.70-1.30 [facility] Comment on above: Order Comment: [place] e[place] Performed By: #### C MPN, LDO, URICB #### [facility] (DEFAULT) [address] [place] [address] 47184 GFR/1.73 sq M.predicted among non-blacks MDRD (S/P/Bld) [Vol rate/Area] 75 mL/min/{1.73_m2} Normal >=60 [facility] Comment on above: Order Comment: Voor[place] ees Result Comment: Repo rted eGFR is based on the CKD-EPI 2020 equation using creatinine, age, and sex. Performed By: #### C MPN, LDO, URICB #### [facility] (DEFAULT) [address] [place] [address] 22079 Glucose [Mass/Vol] 135 mg/dL High 70-99 [facility] Comment on above: Order Comment: [place] e[place] Performed By: #### C MPN, LDO, URICB #### [facility] (DEFAULT) [address] [place] [address] 70491 Osmolality [Osmolality] 294 mosm/kg Normal 278-305 [facility] Comment on above: Order Comment: [place] e[place] Performed By: #### C MPN, LDO, URICB #### [facility] (DEFAULT) [address] [place] [address] 24155 Potassium [Moles/Vol] 3.9 mmol/L Normal 3.5-5.0 [facility] Comment on above: Order Comment: [place] e[place] Performed By: #### C MPN, LDO, URICB #### [facility] (DEFAULT) [address] [place] [address] 24760 Protein [Mass/Vol] 7.1 g/dL Normal 6.4-8.3 [facility] Comment on above: Order Comment: [place] e[place] Performed By: #### C MPN, LDO, URICB #### [facility] (DEFAULT) [address] [place] [address] 32453 Sodium [Moles/Vol] 139 mmol/L Normal 135-145 [facility] Comment on above: Order Comment: [place] e[place] Performed By: #### C MPN, LDO, URICB #### [facility] (DEFAULT) [address] [place] [address] 59164 Urea nitrogen [Mass/Vol] 15 mg/dL Normal 7-25 [facility] Comment on above: Order Comment: [place] e[place] Performed By: #### C MPN, LDO, URICB #### [facility] (DEFAULT) [address] [place] [address] 02257 Urea nitrogen/Creatinine [Mass ratio] 14 mg/mg Normal [facility] Comment on above: Order Comment: [place] ees Performed By: #### C MPN, LDO, URICB #### [facility] (DEFAULT) [address] [place] [address] 32998 Albumin [Mass/Vol] 4.2 g/dL 3.5 - 5.0 g/dL [facility] ALP [Catalytic activity/Vol] 165 U/L High 32 - 126 U/L [facility] ALT [Catalytic activity/Vol] 24 U/L 10 - 52 U/L [facility] Anion gap [Moles/Vol] 13 mmol/L 7 - 17 mmol/L [facility] AST [Catalytic activity/Vol] 22 U/L 10 - 39 U/L [facility] Bilirubin [Mass/Vol] 0.4 mg/dL NINF - 1.5 mg/dL [facility] Calcium [Mass/Vol] 9.6 mg/dL 8.6 - 10. 5 mg/dL [facility] Chloride [Moles/Vol] 107 mmol/L 98 - 10 8 mmol/L [facility] CO2 [Moles/Vol] 23 mmol/L 21 - 31 mmol/L [facility] Creatinine [Mass/Vol] 1.08 mg/dL 0.70 - 1.30 mg/dL [facility] eGFR, CKD-EPI, Male 75 - PINF [facility] Comment on above: Reported eGFR is bas ed on the CKD-EPI 2020 equation using creatinine, age, and sex. Glucose [Mass/Vol] 135 mg/dL High 70 - 99 mg/dL [facility] Osmolality Calc [Osmolality] 294 [facility] Potassium [Moles/Vol] 3.9 mmol/L 3.5 - 5.0 mmol/L [facility] Protein [Mass/Vol] 7.1 g/dL 6.4 - 8.3 g/dL [facility] Sodium [Moles/Vol] 139 mmol/L 135 - 145 mmol/L [facility] Urea nitrogen [Mass/Vol] 15 mg/dL 7 - 25 mg/dL [facility] Urea nitrogen/Creatinine [Mass ratio] 14 mg/mg [facility] Chronic hepatitis differenti ation between hepatitis B and C virus panelOrdered By: Nia Mixon on 01-28-2024 HBV core IgG+IgM Ql (S) Negative Negative [facility] HBV surface Ab IA Ql (S) Negative Negative [facility] HBV surface Ag Ql (S) Negative Negative [facility] HCV Ab Ql (S) Negative Negative [facility] Interpretation and review of laboratory results Normal [facility] HEPATITIS BATTERY, CHRONICon 01-28-2024 Hep B Core Ab,Total (IgG+IgM) Negative Normal Negative [facility] Comment on above: Order Comment: Voor[place] ees Performed By: #### H EP3B #### [facility] (DEFAULT) [address] [address] Hep B Surface Ab Negative Normal Negative [facility] Comment on above: Order Comment: [place] ees Performed By: #### H EP3B #### [facility] (DEFAULT) [address] [place] [address] Hepatitis B Surface Ag Negative Normal Negative [facility] Comment on above: Order Comment: [place] ees Performed By: #### H EP3B #### [facility] (DEFAULT) [address] [place] [address] Hepatitis C Antibody Negative Normal Negative [facility] Comment on above: Order Comment: [place] ees Performed By: #### H EP3B #### [facility] (DEFAULT) [address] [place] [address] HIV 1 AND 2 ANTIBODIES/P24 A NTIGENon 01-28-2024 HIV 1+2 Ab+HIV1 p24 Ag IA Ql Non-Reactive Non Reactive [facility] Interpretation and review of laboratory results Normal [facility] HIV-1/HIV-2 Ab With p24 Antigen Non-Reactive Normal Non Reactive [facility] Comment on above: Order Comment: [place] ees Performed By: #### L [id number] #### [facility] (DEFAULT) [address] [address] LACTATE DEHYDROGENASEon 01-02 LD Total 177 U/L Normal 100-190 [facility] Comment on above: Order Comment: [place] ees Performed By: #### C MPN, LDO, URICB #### [facility] (DEFAULT) [address] [place] [address] Interpretation and review of laboratory results Normal [facility] LDH Lactate to pyruvate reaction [Catalytic activity/Vol] 177 U/L 100 - 190 U/L [facility] No Panel Informationon 01-27 Interpretation and review of laboratory results Abnormal [facility] URIC ACIDon 01-28-2024 Urate [Mass/Vol] 7.4 mg/dL High 3.5-7.0 [facility] Comment on above: Order Comment: [place] e[place] Performed By: #### C MPN, LDO, URICB #### [facility] (DEFAULT) [address] [place] [address] 63489 Urate [Mass/Vol] 7.4 mg/dL High 3.5 - 7.0 mg/dL [facility] CNPNon 01-27-2024 CNPN Normal [facility] CNCOon 01-22-2024 CNCO Letter Text Normal [facility] CNCOon 01-21-2024 CNCO Letter Text Normal [facility] CNPNon 01-20-2024 CNPN Normal [facility] CNPNon 01-14-2024 CNPN Normal [facility] Pathology Noteon 01-13-2024 Pathology Note [id number]#1.00TIFF Normal [facility] Pathology Note [id number]#1.00TIFF Normal [facility] Pathology Note [id number]#1.00TIFF Normal [facility] CNOVSPon 01-12-2024 CNOVSP Normal [facility] CNOVSPon 01-05-2024 CNOVSP Normal [facility] Pathology Noteon 12-31-2023 Pathology Note [id number]#1.00TIFF Normal [facility] CNOVon 12-30-2023 CNOV Normal [facility] CNPNon 12-29-2023 CNPN Normal [facility] B2 Microglob SerPl-mCncon Weai-9-Ixseicchcyyxu [Mass/Vol] 2.4 ug/mL Normal <3.1 [facility] Comment on above: Order Comment: Speci men Type: BLOOD SPECIMENOrdering Facility: [facility] Address: [address] [place] [address] Result Comment: Beta -2 Microglobulin test is performed using the [employer] immunoturbidimetric method. Results obtained with different methods or kits cannot be used interchangeably. Performed By: #### 1 952-1 ####[facility] LABCLIA [id number] [place] [address] [place] CBC W Auto Differential pane l (Bld)on 12-25-2023 Basophils (Bld) [#/Vol] 0.05 10*3/uL <0.11 k/uL [facility] Basophils/100 WBC (Bld) 0.9 % [facility] Differential cell count method Nom (Bld) Auto [facility] Eosinophils (Bld) [#/Vol] 0.18 10*3/uL <0.46 k/uL [facility] Eosinophils/100 WBC (Bld) 3.2 % [facility] Erythrocyte distribution width (RBC) [Ratio] 13.3 % 11.5 - 15.0 % [facility] Hematocrit (Bld) [Volume fraction] 40.3 % 39.0 - 51.0 % [facility] Hemoglobin (Bld) [Mass/Vol] 14.1 g/dL 13.0 - 17.0 g/dL [facility] Immature granulocytes (Bld) [#/Vol] 0.03 10*3/uL <0.10 k/uL [facility] Immature granulocytes/100 WBC (Bld) 0.5 % [facility] Lymphocytes (Bld) [#/Vol] 0.61 10*3/uL Low 1.00 - 4.00 k/uL [facility] Lymphocytes/100 WBC (Bld) 10.9 % [facility] MCH (RBC) [Entitic mass] 31.8 pg 26.0 - 34.0 pg [facility] MCHC (RBC) [Mass/Vol] 35.0 g/dL 30.5 - 36.0 g/dL [facility] MCV (RBC) [Entitic vol] 91.0 fL 80.0 - 100.0 fL [facility] Monocytes (Bld) [#/Vol] 1.06 10*3/uL High <0.87 k/uL [facility] Monocytes/100 WBC (Bld) 19.0 % [facility] Neutrophils (Bld) [#/Vol] 3.66 10*3/uL 1.45 - 7.50 k/uL [facility] Neutrophils/100 WBC (Bld) 65.5 % [facility] Nucleated RBC (Bld) [#/Vol] <0.01 k/uL [facility] Nucleated RBC/100 WBC (Bld) [Ratio] 0.0 /100 WBC [facility] Platelet mean volume (Bld) [Entitic vol] 9.5 fL 9.0 - 12.7 fL [facility] Platelets (Bld) [#/Vol] 216 10*3/uL 150 - 400 k/uL [facility] RBC (Bld) [#/Vol] 4.43 10*6/uL 4.20 - 6.00 m/uL [facility] WBC (Bld) [#/Vol] 5.59 10*3/uL 3.70 - 11.00 k/uL [facility] Basophils (Bld) [#/Vol] 0.05 10*3/uL Normal <0.11 [facility] Comment on above: Order Comment: Speci men Type: BLOOD SPECIMENOrdering Facility: [facility] Address: [address] [place] [address] Performed By: #### 5 7021-8 ####[facility] LABCLIA [id number] [place] [address] Basophils/100 WBC (Bld) 0.9 % Normal [facility] Comment on above: Order Comment: Speci men Type: BLOOD SPECIMENOrdering Facility: [facility] Address: [address] [place] [address] Performed By: #### 5 7021-8 ####[facility] LABCLIA [id number] [place] [address] Differential cell count method Nom (Bld) Auto Normal [facility] Comment on above: Order Comment: Speci men Type: BLOOD SPECIMENOrdering Facility: [facility] Address: [address] [place] [address] Performed By: #### 5 7021-8 ####[facility] LABCLIA [id number] [place] [address] Eosinophils (Bld) [#/Vol] 0.18 10*3/uL Normal <0.46 [facility] Comment on above: Order Comment: Speci men Type: BLOOD SPECIMENOrdering Facility: [facility] Address: [address] [place] [address] Performed By: #### 5 7021-8 ####[facility] LABCLIA [id number] [place] [address] Eosinophils/100 WBC (Bld) 3.2 % Normal [facility] Comment on above: Order Comment: Speci men Type: BLOOD SPECIMENOrdering Facility: [facility] Address: [address] [place] [address] Performed By: #### 5 7021-8 ####[facility] LABCLIA [id number] [place] [address] Erythrocyte distribution width (RBC) [Ratio] 13.3 % Normal 11.5-15.0 [facility] Comment on above: Order Comment: Speci men Type: BLOOD SPECIMENOrdering Facility: [facility] Address: [address] [place] [address] Performed By: #### 5 7021-8 ####[facility] LABCLIA [id number] [place] [address] Hematocrit (Bld) [Volume fraction] 40.3 % Normal 39.0-51.0 [facility] Comment on above: Order Comment: Speci men Type: BLOOD SPECIMENOrdering Facility: [facility] Address: [address] [place] [address] Performed By: #### 5 7021-8 ####[facility] LABCLIA [id number] [place] [address] Hemoglobin (Bld) [Mass/Vol] 14.1 g/dL Normal 13.0-17.0 [facility] Comment on above: Order Comment: Speci men Type: BLOOD SPECIMENOrdering Facility: [facility] Address: [address] [place] [address] Performed By: #### 5 7021-8 ####[facility] LABCLIA [id number] [place] [address] Immature granulocytes (Bld) [#/Vol] 0.03 10*3/uL Normal <0.10 [facility] Comment on above: Order Comment: Speci men Type: BLOOD SPECIMENOrdering Facility: [facility] Address: [address] [place] [address] Performed By: #### 5 7021-8 ####[facility] LABCLIA [id number] [place] [address] Immature granulocytes/100 WBC (Bld) 0.5 % Normal [facility] Comment on above: Order Comment: Speci men Type: BLOOD SPECIMENOrdering Facility: [facility] Address: [address] [place] [address] Performed By: #### 5 7021-8 ####[facility] LABCLIA [id number] [place] [address] Lymphocytes (Bld) [#/Vol] 0.61 10*3/uL Low 1.00-4.00 [facility] Comment on above: Order Comment: Speci men Type: BLOOD SPECIMENOrdering Facility: [facility] Address: [address] [place] [address] Performed By: #### 5 7021-8 ####[facility] LABCLIA [id number] [place] [address] Lymphocytes/100 WBC (Bld) 10.9 % Normal [facility] Comment on above: Order Comment: Speci men Type: BLOOD SPECIMENOrdering Facility: [facility] Address: [address] [place] [address] Performed By: #### 5 7021-8 ####[facility] LABCLIA [id number] [place] [address] MCH (RBC) [Entitic mass] 31.8 pg Normal 26.0-34.0 [facility] Comment on above: Order Comment: Speci men Type: BLOOD SPECIMENOrdering Facility: [facility] Address: [address] [place] [address] Performed By: #### 5 7021-8 ####[facility] LABCLIA [id number] [place] [address] MCHC (RBC) [Mass/Vol] 35.0 g/dL Normal 30.5-36.0 [facility] Comment on above: Order Comment: Speci men Type: BLOOD SPECIMENOrdering Facility: [facility] Address: [address] [place] [address] Performed By: #### 5 7021-8 ####[facility] LABCLIA [id number] [place] [address] MCV (RBC) [Entitic vol] 91.0 fL Normal 80.0-100.0 [facility] Comment on above: Order Comment: Speci men Type: BLOOD SPECIMENOrdering Facility: [facility] Address: [address] [place] [address] Performed By: #### 5 7021-8 ####[facility] LABCLIA [id number] [place] [address] Monocytes (Bld) [#/Vol] 1.06 10*3/uL High <0.87 [facility] Comment on above: Order Comment: Speci men Type: BLOOD SPECIMENOrdering Facility: [facility] Address: [address] [place] [address] Performed By: #### 5 7021-8 ####[facility] LABCLIA [id number] [place] [address] Monocytes/100 WBC (Bld) 19.0 % Normal [facility] Comment on above: Order Comment: Speci men Type: BLOOD SPECIMENOrdering Facility: [facility] Address: [address] [place] [address] Performed By: #### 5 7021-8 ####[facility] LABCLIA [id number] [place] [address] Neutrophils (Bld) [#/Vol] 3.66 10*3/uL Normal 1.45-7.50 [facility] Comment on above: Order Comment: Speci men Type: BLOOD SPECIMENOrdering Facility: [facility] Address: [address] [place] [address] Performed By: #### 5 7021-8 ####[facility] LABCLIA [id number] [place] [address] Neutrophils/100 WBC (Bld) 65.5 % Normal [facility] Comment on above: Order Comment: Speci men Type: BLOOD SPECIMENOrdering Facility: [facility] Address: [address] [place] [address] Performed By: #### 5 7021-8 ####[facility] LABCLIA [id number] [place] [address] Nucleated RBC (Bld) [#/Vol] 10*3/uL Normal <0.01 [facility] Comment on above: Order Comment: Speci men Type: BLOOD SPECIMENOrdering Facility: [facility] Address: [address] [place] [address] Performed By: #### 5 7021-8 ####[facility] LABIA [id number] [place] [address] Nucleated RBC/100 WBC (Bld) [Ratio] 0.0 /100 WBC Normal [facility] Comment on above: Order Comment: Speci men Type: BLOOD SPECIMENOrdering Facility: [facility] Address: [address] [place] [address] Performed By: #### 5 7021-8 ####[facility] LABCLIA [id number] [place] [address] Platelet mean volume (Bld) [Entitic vol] 9.5 fL Normal 9.0-12.7 [facility] Comment on above: Order Comment: Speci men Type: BLOOD SPECIMENOrdering Facility: [facility] Address: [address] [place] [address] Performed By: #### 5 7021-8 ####[facility] LABCLIA [id number] [place] [address] Platelets (Bld) [#/Vol] 216 10*3/uL Normal 150-400 [facility] Comment on above: Order Comment: Speci men Type: BLOOD SPECIMENOrdering Facility: [facility] Address: [address] [place] [address] Performed By: #### 5 7021-8 ####[facility] LABCLIA [id number] [place] [address] RBC (Bld) [#/Vol] 4.43 10*6/uL Normal 4.20-6.00 [facility] Comment on above: Order Comment: Speci men Type: BLOOD SPECIMENOrdering Facility: [facility] Address: [address] [place] [address] Performed By: #### 5 7021-8 ####[facility] LABCLIA [id number] [place] [address] WBC (Bld) [#/Vol] 5.59 10*3/uL Normal 3.70-11.00 [facility] Comment on above: Order Comment: Speci men Type: BLOOD SPECIMENOrdering Facility: [facility] Address: [address] [place] [address] Performed By: #### 5 7021-8 ####[facility] LABCLIA [id number] [place] [address] CNOVSPon 12-25-2023 CNOVSP Normal [facility] metabolic 2000 panelon 12-25-2023 Albumin [Mass/Vol] 4.4 g/dL 3.9 - 4.9 g/dL [facility] ALP [Catalytic activity/Vol] 204 U/L High 38 - 113 U/L [facility] ALT [Catalytic activity/Vol] 30 U/L 10 - 54 U/L [facility] Anion gap [Moles/Vol] 10 mmol/L 9 - 18 mmol/L [facility] AST [Catalytic activity/Vol] 22 U/L 14 - 40 U/L [facility] Bilirubin [Mass/Vol] 0.3 mg/dL 0.2 - 1 .3 mg/dL [facility] Calcium [Mass/Vol] 10.2 mg/dL 8.5 - 10. 2 mg/dL [facility] Chloride [Moles/Vol] 101 mmol/L 97 - 10 5 mmol/L [facility] CO2 [Moles/Vol] 25 mmol/L 22 - 30 mmol/L [facility] Creatinine [Mass/Vol] 1.10 mg/dL 0.73 - 1.22 mg/dL [facility] Estimated Glomerular Filtration Rate 74 mL/min/1.73m >=60 mL/min/1.7 3m [facility] Glucose [Mass/Vol] 96 mg/dL 74 - 99 mg/dL [facility] Potassium [Moles/Vol] 4.1 mmol/L 3.7 - 5.1 mmol/L [facility] Protein [Mass/Vol] 7.6 g/dL 6.3 - 8.0 g/dL [facility] Sodium [Moles/Vol] 136 mmol/L 136 - 144 mmol/L [facility] Urea nitrogen [Mass/Vol] 16 mg/dL 9 - 24 mg/dL [facility] Albumin [Mass/Vol] 4.4 g/dL Normal 3.9-4.9 [facility] Comment on above: Order Comment: Speci men Type: BLOOD SPECIMENOrdering Facility: [facility] Address: [address] [place] [address] Performed By: #### 2 532-0, 41507-1 ####[facility] LABCLIA [id number] [place] [address] ALP [Catalytic activity/Vol] 204 U/L High 38-113 [facility] Comment on above: Order Comment: Speci men Type: BLOOD SPECIMENOrdering Facility: [facility] Address: [address] [place] [address] Performed By: #### 2 532-0, ####[facility] LABCLIA [id number] [place] [address] ALT [Catalytic activity/Vol] 30 U/L Normal 10-54 [facility] Comment on above: Order Comment: Speci men Type: BLOOD SPECIMENOrdering Facility: [facility] Address: [address] [place] [address] Performed By: #### 2 532-0, ####[facility] LABCLIA [id number] [place] [address] Anion gap [Moles/Vol] 10 mmol/L Normal 9-18 [facility] Comment on above: Order Comment: Speci men Type: BLOOD SPECIMENOrdering Facility: [facility] Address: [address] [place] [address] Performed By: #### 2 532-0, ####[facility] LABCLIA [id number] [place] [address] AST [Catalytic activity/Vol] 22 U/L Normal 14-40 [facility] Comment on above: Order Comment: Speci men Type: BLOOD SPECIMENOrdering Facility: [facility] Address: [address] [place] [address] Performed By: #### 2 532-0, ####[facility] LABCLIA [id number] [place] [address] Bilirubin [Mass/Vol] 0.3 mg/dL Normal 0.2-1.3 [facility] Comment on above: Order Comment: Speci men Type: BLOOD SPECIMENOrdering Facility: [facility] Address: [address] [place] [address] Performed By: #### 2 532-0, ####[facility] LABCLIA [id number] [place] [address] Calcium [Mass/Vol] 10.2 mg/dL Normal 8.5-10.2 [facility] Comment on above: Order Comment: Speci men Type: BLOOD SPECIMENOrdering Facility: [facility] Address: [address] [place] [address] Performed By: #### 2 532-0, ####[facility] LABCLIA [id number] [place] [address] Chloride [Moles/Vol] 101 mmol/L Normal 97-105 [facility] Comment on above: Order Comment: Speci men Type: BLOOD SPECIMENOrdering Facility: [facility] Address: [address] [place] [address] Performed By: #### 2 532-0, ####[facility] LABCLIA [id number] [place] [address] CO2 [Moles/Vol] 25 mmol/L Normal 22-30 [facility] Comment on above: Order Comment: Speci men Type: BLOOD SPECIMENOrdering Facility: [facility] Address: [address] [place] [address] Performed By: #### 2 532-0, ####[facility] LABCLIA [id number] [place] [address] Creatinine [Mass/Vol] 1.10 mg/dL Normal 0.73-1.22 [facility] Comment on above: Order Comment: Speci men Type: BLOOD SPECIMENOrdering Facility: [facility] Address: [address] [place] [address] Performed By: #### 2 532-0, ####[facility] LABCLIA [id number] [place] [address] Creatinine and Glomerular filtration rate.predicted panel (S/P/Bld) 74 mL/min/1.73m??? Normal >=60 [facility] Comment on above: Order Comment: Sara randle Type: BLOOD SPECIMENOrdering Facility: [facility] Address: [address] [place] [address] Result Comment: Carol mated Glomerular Filtration Rate [...] actual GFR. Performed By: #### 2 532-0, 62888-7 ####[facility] LABIA [id number] [place] [address] Glucose [Mass/Vol] 96 mg/dL Normal 74-99 [facility] Comment on above: Order Comment: Sara randle Type: BLOOD SPECIMENOrdering Facility: [facility] Address: [address] [place] [address] Result Comment: The [place] Diabetes Association (ADA) provides guidance for cutoff [...] Standards of Medical Care in Diabetes 2016, [place] [employer]. Diabetes Care. 2016.39(Suppl 1). Performed By: #### 2 532-0, 64552-9 ####[facility] LABIA [id number] [place] [address] Potassium [Moles/Vol] 4.1 mmol/L Normal 3.7-5.1 [facility] Comment on above: Order Comment: Speci men Type: BLOOD SPECIMENOrdering Facility: [facility] Address: [address] [place] [address] Performed By: #### 2 532-0, 75149-3 ####[facility] LABCLIA [id number] [place] [address] Protein [Mass/Vol] 7.6 g/dL Normal 6.3-8.0 [facility] Comment on above: Order Comment: Speci men Type: BLOOD SPECIMENOrdering Facility: [facility] Address: [address] [place] [address] Performed By: #### 2 532-0, 86317-1 ####[facility] LABCLIA [id number] [place] [address] Sodium [Moles/Vol] 136 mmol/L Normal 136-144 [facility] Comment on above: Order Comment: Speci men Type: BLOOD SPECIMENOrdering Facility: [facility] Address: [address] [place] [address] Performed By: #### 2 532-0, 35374-2 ####[facility] LABCLIA [id number] [place] [address] Urea nitrogen [Mass/Vol] 16 mg/dL Normal 9-24 [facility] Comment on above: Order Comment: Speci men Type: BLOOD SPECIMENOrdering Facility: [facility] Address: [address] [place] [address] Performed By: #### 2 532-0, 72989-1 ####[facility] LABCLIA [id number] [place] [address] LDH SerPl-cCncon 12-25-2023 LDH [Catalytic activity/Vol] 182 U/L Normal 135-225 [facility] Comment on above: Order Comment: Speci men Type: BLOOD SPECIMENOrdering Facility: [facility] Address: [address] [place] [address] Performed By: #### 2 532-0, 06338-1 ####[facility] LABCLIA [id number] [place] [address] Laboratory - Chemistry and C hemistry - challengeon 12-25-2023 LDH [Catalytic activity/Vol] 182 U/L 135 - 225 U/L [facility] Ambulatory Visit Summaryon 0 12-24-2023 Ambulatory Visit [...] for choosing us for your care. Normal [facility] FISH FOR AGGRESSIVE B-CELL L YMPHOMAon 12-24-2023 FISH FOR AGGRESSIVE B-CELL LYMPHOMA Normal [facility] Comment on above: Order Comment: Speci men Type: FORMALIN-FIXED PARAFFIN-EMBEDDED TISSUE SPECIMENOrdering Facility: [facility] Review Address: , , Result Comment: FISH for Aggressive B-cell Lymphoma TissueLaboratory Accession Number: [id number]: [id number]/Part ID: [id number] ([id number])Sample Type: FFPETSample Description: Right inguinal lymph [...] hybridization analysis was performedusing the following probes (Shots, [place], [place]): LSI MYCdual color, break-apart rearrangement probes, LSI IGH/MYC/CDB3dlafwecj, dual fusion probes, LSI BCL2 dual color, break-apartrearrangement probes, and LSI BCL6 dual color, break-apartrearrangement probes.DISCLAIMER:This test was developed and its performance characteristics determinedby the [facility]'s [facility] LaboratoryMedicine [place] ([facility]). It has not been cleared or approved bythe FDA. -[facility] is regulated under CLIA as qualified to perform high-complexity testing. This test is used for clinical purposes. It shouldnot be regarded as investigational or for research.Interpretation performed at [facility], [address] [place], [place] [address]. CLIA Number: [id number] reviewed by Chiquita Clemente MD, PhD Performed By: #### L [id number] ####[facility] LABCLIA [id number] [address] OF [place]#### FABCEL ####[facility] LIMSCLIA [id number] [address] OF [facility] General Surgery Office/Clini c Noteon 12-24-2023 [...] Martins, TERRELL Only if needed [address] [place] [address]- Additional Instructions: Problem List/Past Medical History Ongoing [...] inactivated - Not Given Patient Refuses Normal [facility] Comment on above: Result Comment: Elec tronically Signed By: MIGUEL LOFTON, Chiquita Martins\.br\Date and Time Signed: 12/24/23 20:33 EST OUTSIDE SURG PATH SLIDE REVI EWon 12-24-2023 ADDENDUM 1: Normal [facility] Comment on above: Order Comment: Speci men Type: FORMALIN-FIXED PARAFFIN-EMBEDDED TISSUE SPECIMENOrdering Facility: [facility] Review Address: , , Result Comment: Aggr essive B-Cell Neoplasm Biomarker [id number] ICC Diagnosis: Diffuse large B-cell lymphoma, NOSBiomarker Results:Cell 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): Germinal centerMYC expression (% tumor cells by IHC): 20%BCL2 expression (% tumor cells by IHC): 90%Ki67 expression (% tumor cells by IHC): 70-80%BCL2 translocation (FISH): NegativeBCL6 translocation (FISH): PositiveMYC translocation (FISH): Negative IGH::MYC translocation (FISH): NegativeAddendum electronically signed by Chioma Pineda DO on 01/08/2024 at 8:48 AM Performed By: #### L [id number] ####[facility] LABCLIA [id number] [address]#### FABCEL ####[facility] LIMSCLIA [id number] [address] CASE REPORT Normal [facility] Comment on above: Order Comment: Speci men Type: FORMALIN-FIXED PARAFFIN-EMBEDDED TISSUE SPECIMENOrdering Facility: [facility] Review Address: , , Result Comment: Surg [facility] Pathology Report Case: [id number] Provider: Michael Boykin MD Collected: 12/24/2023 08:50 AMOrdering Location: [facility] Received: 12/24/2023 08:49 AM [facility] LaboratoryPathologist: Chioma Pineda, DOSpecimen: SLIDE(S), 26 SLIDES [id number] Performed By: #### L [id number] ####[facility] LABCLIA [id number] [address]#### FABCEL ####[facility] LIMSCLIA [id number] [place] [id number] [facility] DIAGNOSIS COMMENT Normal [facility] Comment on above: Order Comment: Speci [...] been determined by the performing laboratory within [facility]???s [facility] Pathology and Laboratory Medicine [place] ([facility], [facility], [facility], [facility], [facility], or [facility]) in a manner consistent with CLIA requirements. One or more of these tests have not been cleared or approved by the FDA. [facility] is regulated under CLIA as qualified to perform high-complexity testing. These tests are used for clinical purposes. They should not be regarded as investigational or for research. Positive and negative controls stain appropriately. Performed By: #### L [id number] ####[facility] LABCLIA [id number] [place] [address] [place]#### FABCEL ####[facility] LIMSCLIA [id number] [place] [id number] [place] FINAL DIAGNOSIS Normal [facility] Comment on above: Order Comment: Speci men Type: FORMALIN-FIXED PARAFFIN-EMBEDDED TISSUE SPECIMENOrdering Facility: [facility] Review Address: , , Result Comment: Outs remi slides from [facility], [place], [place], labeled [id number], collected 12/17/2023:A-B. Right inguinal lymph node, excisional biopsies:-Aggressive large B-cell lymphoma, favor germinal center immunophenotype Performed By: #### L [id number] ####[facility] LABCLIA [id number] [place] [id number] [place]#### FABCEL ####[facility] LIMSCLIA [id number] [place] [id number] [place] FINAL PERFORMING LAB Normal [facility] Comment on above: Order Comment: Speci men Type: FORMALIN-FIXED PARAFFIN-EMBEDDED TISSUE SPECIMENOrdering Facility: [facility] Review Address: , , Result Comment: Diag nostic interpretation performed at [facility], [address] [place] [address] CLIA# [id number] Director: Lon Kaiser M.D. Performed By: #### L [id number] ####[facility] LABCLIA [id number] [place] [address] [place]#### FABCEL ####[facility] LIMSCLIA [id number] [address] [place] MICROSCOPIC DESCRIPTION Normal [facility] Comment on above: Order Comment: Speci [...] deeper sections of tissue block A5 at [facility]. The lymphoma cells are positive for CD10 (minor subset, in the best preserved area) and MUM1, and are negative for MYC, S100, and JAVID by in situ hybridization. Performed By: #### L [id number] ####[facility] LABCLIA [id number] [address] [place]#### FABCEL ####[facility] LIMSCLIA [id number] [place] [id number] [place] Pathology Noteon 12-24-2023 Pathology Note [id number]#1.00TIFF Normal [facility] Operative Reporton Operative Report [id number]#1.00TIFF Normal [facility] CNPNon 12-22-2023 CNPN Normal [facility] Pathology Noteon 12-22-2023 Pathology Note [id number]#1.00TIFF Normal [facility] Cheng 12-17-2023 L Specimen: [id number] eceived: 12/17/23 Status: JENNAFaye Barros Num: [id number] Spec Type: Surgical Subm Dr: Chiquita Rivera MD FACS Tissues: A Lymph Node - Regional Resection (RT INGUINAL LYMPH NODE) B Lymph Node - Regional Resection (RT ING LUMP/MASS LYMPH) Procedures: HE/11, Gross/Micro L5/2, BCL-2, BCL-6, CD10, CD138, CD20, CD21, CD23, CD3, CD30, CD43, CD5, CYCLIN D1, Ki-67, PAX5, DIFF QWIK Age/ Patient Sex Location Account Attending Physician Katia Shaikh 68/M [facility] [id number] Chiquita Rivera MD FACS SPEC NUM: [id number] RECD: 12/17/23 STATUS: ABIOLA TANNERElizabeth NUM: [id number] FRANDY: 12/17/[address]: Chiquita Rivera MD FACS ENTERED: 12/17/23 [facility] DR: Oleksandr Anguiano SPEC TYPE: Surgical DEPT: [...] Supplemental for findings of consultation report from [facility], and final diagnosis: A and B, right inguinal lymph node, excisional biopsies: -Aggressive large B-cell lymphoma, favor germinal center immunophenotype Note: -Please also see detailed description in entire report on file Addendum Signed (signature on file) Caro Ocasio MD 01/10/24 1236 -------- Addendum 2 Entered: 12/30/230977 Supplemental for findings of FISH analysis of NHL (non-Hodgkin lymphoma) from [facility]: -------- Specimen: [id number] Received: 12/17/23 Status: ABIOLA Re Num: [id number] Spec Type: Surgical Subm Dr: Chiquita Rivera MD FACS Tissues: A Lymph Node - Regional Resection (RT INGUINAL LYMPH NODE) B Lymph Node - Regional Resection (RT ING LUMP/MASS LYMPH) Procedures: /11, Gross/Micro L5/2, BCL-2, BCL-6, CD10, CD138, CD20, CD21, CD23, CD3, CD30, CD43, CD5, CYCLIN D1, Ki-67, PAX5, DIFF QWIK -------- Patient: Katia Shaikh [id number] (Continued) -------- Specimen: [id number] Received: 12/17/23 (Continued) Supplemental Report (Continued) Signed (signature on file) Caro Ocasio MD 12/21/23 1853 -------- Specimen: [id number] Received: 12/17/23 Status: ABIOLA Barros Num: [id number] Spec Type: Surgical Subm Dr: Chiquita Rivera MD FACS Tissues: A Lymph Node - Regional Resection (RT INGUINAL LYMPH NODE) B Lymph Node - Regional Resection (RT ING LUMP/MASS LYMPH) Procedures: HE/11, Gross/Micro L5/2, BCL-2, BCL-6, CD10, CD138, CD20, CD21, CD23, CD3, CD30, CD43, CD5, CYCLIN D1, Ki-67, PAX5, DIFF QWIK -------- Patient: Katia Shaikh [id number] (Continued) -------- Specimen: [id number] Received: 12/17/23-161 (Continued) Supplemental Report (Continued) -Results: [...] high-grade B-cell lymphoma FISH reflex panel from [facility]: -MYC (rearrangement): Not detected -MYC (amplification): Not detected Note: -Pending additional testing, and the further findings of the consultation report from [facility] for final interpretation or classification of the lymphoma to follow Addendum Signed (signature on file) Caro Ocasio MD 12/24/23 0808 -------- -------- Specimen: [id number] Received: 12/17/23 Status: ABIOLA Barros Num: [id number] Spec Type: Surgical Subm Dr: Chiquita Rivera MD FACS Tissues: A (more content not included)... Normal [facility] CNPNon 12-15-2023 CNPN Normal [facility] ECG 12-Leadon 12-15-2023 ECG 12-Lead [id number]#1.00TIFF Normal [facility] Consent for Procedure/Surger yon 12-11-2023 Consent for Procedure/Surgery [id number]#1.00TIFF Normal [facility] Ambulatory Visit Summaryon 0 12-09-2023 Ambulatory Visit [...] you for choosing us for your care. [facility] RAD - Nuclear Medicine Repor ton 12-09-2023 RAD - Nuclear Medicine Report [id number]#1.00TIFF [facility] RAD - Ultrasound Reporton RAD - Ultrasound Report [id number]#1.00TIFF [facility] CNPNon 12-01-2023 [facility] RAD - Ultrasound Reporton RAD - Ultrasound Report [id number]#1.00TIFF [facility] CNPNon 11-24-2023 CNPN Normal [facility] Physician Referralon 024 Physician Referral [id number]#1.00TIFF Normal [facility] CNOVSPon 11-20-2023 CNOVSP Normal [facility] CNPNon 11-20-2023 CNPN Normal [facility] CNPNon 11-19-2023 CNPN Normal [facility] CBC W Auto Differential pane l (Bld)on 11-18-2023 Basophils (Bld) [#/Vol] 0.05 10*3/uL [facility] Basophils/100 WBC (Bld) 1.5 % [facility] Differential cell count method Nom (Bld) Auto [facility] Eosinophils (Bld) [#/Vol] 0.16 10*3/uL [facility] Eosinophils/100 WBC (Bld) 4.8 % [facility] Erythrocyte distribution width (RBC) [Ratio] 14.1 % 11.5 - 15.0 % [facility] Hematocrit (Bld) [Volume fraction] 41.5 % 39.0 - 51.0 % [facility] Hemoglobin (Bld) [Mass/Vol] 14.6 g/dL 13.0 - 17.0 g/dL [facility] Immature granulocytes (Bld) [#/Vol] [facility] Immature granulocytes/100 WBC (Bld) 0.6 % [facility] Interpretation and review of laboratory results Abnormal [facility] Lymphocytes (Bld) [#/Vol] 0.32 10*3/uL Low [facility] Lymphocytes/100 WBC (Bld) 9.5 % [facility] MCH (RBC) [Entitic mass] 31.9 pg 26.0 - 34.0 pg [facility] MCHC (RBC) [Mass/Vol] 35.2 g/dL 30.5 - 36.0 g/dL [facility] MCV (RBC) [Entitic vol] 90.8 fL 80.0 - 100.0 fL [facility] Monocytes (Bld) [#/Vol] 0.62 10*3/uL [facility] Monocytes/100 WBC (Bld) 18.5 % [facility] Neutrophils (Bld) [#/Vol] 2.19 10*3/uL [facility] Neutrophils/100 WBC (Bld) 65.1 % [facility] Nucleated RBC (Bld) [#/Vol] [facility] Nucleated RBC/100 WBC (Bld) [Ratio] 0.0 % /100 WBC [facility] Platelet mean volume (Bld) [Entitic vol] 9.5 fL 9.0 - 12.7 fL [facility] Platelets (Bld) [#/Vol] 184 10*3/uL [facility] RBC (Bld) [#/Vol] 4.57 10*6/uL 4.20 - 6.00 m/uL [facility] WBC (Bld) [#/Vol] 3.36 10*3/uL Low [facility] Basophils (Bld) [#/Vol] 0.05 10*3/uL Normal <0.11 [facility] Comment on above: Order Comment: Speci men Type: BLOOD SPECIMENOrdering Facility: [facility] Address: [address] [place] [address] Performed By: #### 5 7021-8 ####[facility] LABCLIA [id number] [place] [address] Basophils/100 WBC (Bld) 1.5 % Normal [facility] Comment on above: Order Comment: Speci men Type: BLOOD SPECIMENOrdering Facility: [facility] Address: [address] [place] [address] Performed By: #### 5 7021-8 ####[facility] LABCLIA [id number] [place] [address] Differential cell count method Nom (Bld) Auto Normal [facility] Comment on above: Order Comment: Speci men Type: BLOOD SPECIMENOrdering Facility: [facility] Address: [address] [place] [address] Performed By: #### 5 7021-8 ####[facility] LABIA [id number] [place] [address] Eosinophils (Bld) [#/Vol] 0.16 10*3/uL Normal <0.46 [facility] Comment on above: Order Comment: Speci men Type: BLOOD SPECIMENOrdering Facility: [facility] Address: [address] [place] [address] Performed By: #### 5 7021-8 ####[facility] LABCLIA [id number] [place] [address] Eosinophils/100 WBC (Bld) 4.8 % Normal [facility] Comment on above: Order Comment: Speci men Type: BLOOD SPECIMENOrdering Facility: [facility] Address: [address] [place] [address] Performed By: #### 5 7021-8 ####[facility] LABCLIA [id number] [place] [address] Erythrocyte distribution width (RBC) [Ratio] 14.1 % Normal 11.5-15.0 [facility] Comment on above: Order Comment: Speci men Type: BLOOD SPECIMENOrdering Facility: [facility] Address: [address] [place] [address] Performed By: #### 5 7021-8 ####[facility] LABCLIA [id number] [place] [address] Hematocrit (Bld) [Volume fraction] 41.5 % Normal 39.0-51.0 [facility] Comment on above: Order Comment: Speci men Type: BLOOD SPECIMENOrdering Facility: [facility] Address: [address] [place] [address] Performed By: #### 5 7021-8 ####[facility] LABCLIA [id number] [place] [address] Hemoglobin (Bld) [Mass/Vol] 14.6 g/dL Normal 13.0-17.0 [facility] Comment on above: Order Comment: Speci men Type: BLOOD SPECIMENOrdering Facility: [facility] Address: [address] [place] [address] Performed By: #### 5 7021-8 ####[facility] LABCLIA [id number] [place] [address] Immature granulocytes (Bld) [#/Vol] 10*3/uL Normal <0.10 [facility] Comment on above: Order Comment: Speci men Type: BLOOD SPECIMENOrdering Facility: [facility] Address: [address] [place] [address] Performed By: #### 5 7021-8 ####[facility] LABCLIA [id number] [place] [address] Immature granulocytes/100 WBC (Bld) 0.6 % Normal [facility] Comment on above: Order Comment: Speci men Type: BLOOD SPECIMENOrdering Facility: [facility] Address: [address] [place] [address] Performed By: #### 5 7021-8 ####[facility] LABCLIA [id number] [place] [address] Lymphocytes (Bld) [#/Vol] 0.32 10*3/uL Low 1.00-4.00 [facility] Comment on above: Order Comment: Speci men Type: BLOOD SPECIMENOrdering Facility: [facility] Address: [address] [place] [address] Performed By: #### 5 7021-8 ####[facility] LABCLIA [id number] [place] [address] Lymphocytes/100 WBC (Bld) 9.5 % Normal [facility] Comment on above: Order Comment: Speci men Type: BLOOD SPECIMENOrdering Facility: [facility] Address: [address] [place] [address] Performed By: #### 5 7021-8 ####[facility] LABCLIA [id number] [place] [address] MCH (RBC) [Entitic mass] 31.9 pg Normal 26.0-34.0 [facility] [facility] Comment on above: Order Comment: Speci men Type: BLOOD SPECIMENOrdering Facility: [facility] Address: [address] [place] [address] Performed By: #### 5 7021-8 ####[facility] LABCLIA [id number] [place] [address] MCHC (RBC) [Mass/Vol] 35.2 g/dL Normal 30.5-36.0 [facility] Comment on above: Order Comment: Speci men Type: BLOOD SPECIMENOrdering Facility: [facility] Address: [address] [place] [address] Performed By: #### 5 7021-8 ####[facility] LABCLIA [id number] [place] [address] MCV (RBC) [Entitic vol] 90.8 fL Normal 80.0-100.0 [facility] Comment on above: Order Comment: Speci men Type: BLOOD SPECIMENOrdering Facility: [facility] Address: [address] [place] [address] Performed By: #### 5 7021-8 ####[facility] LABCLIA [id number] [place] [address] Monocytes (Bld) [#/Vol] 0.62 10*3/uL Normal <0.87 [facility] Comment on above: Order Comment: Speci men Type: BLOOD SPECIMENOrdering Facility: [facility] Address: [address] [place] [address] Performed By: #### 5 7021-8 ####[facility] LABCLIA [id number] [place] [address] Monocytes/100 WBC (Bld) 18.5 % Normal [facility] Comment on above: Order Comment: Speci men Type: BLOOD SPECIMENOrdering Facility: [facility] Address: [address] [place] [address] Performed By: #### 5 7021-8 ####[facility] LABCLIA [id number] [place] [address] Neutrophils (Bld) [#/Vol] 2.19 10*3/uL Normal 1.45-7.50 [facility] Comment on above: Order Comment: Speci men Type: BLOOD SPECIMENOrdering Facility: [facility] Address: [address] [place] [address] Performed By: #### 5 7021-8 ####[facility] LABCLIA [id number] [place] [address] Neutrophils/100 WBC (Bld) 65.1 % Normal [facility] Comment on above: Order Comment: Speci men Type: BLOOD SPECIMENOrdering Facility: [facility] Address: [address] [place] [address] Performed By: #### 5 7021-8 ####[facility] LABCLIA [id number] [place] [address] Nucleated RBC (Bld) [#/Vol] 10*3/uL Normal <0.01 [facility] Comment on above: Order Comment: Speci men Type: BLOOD SPECIMENOrdering Facility: [facility] Address: [address] [place] [address] Performed By: #### 5 7021-8 ####[facility] LABCLIA [id number] [place] [address] Nucleated RBC/100 WBC (Bld) [Ratio] 0.0 /100 WBC Normal [facility] Comment on above: Order Comment: Speci men Type: BLOOD SPECIMENOrdering Facility: [facility] Address: [address] [place] [address] Performed By: #### 5 7021-8 ####[facility] LABCLIA [id number] [place] [address] Platelet mean volume (Bld) [Entitic vol] 9.5 fL Normal 9.0-12.7 [facility] Comment on above: Order Comment: Speci men Type: BLOOD SPECIMENOrdering Facility: [facility] Address: [address] [place] [address] Performed By: #### 5 7021-8 ####[facility] LABIA [id number] [place] [address] Platelets (Bld) [#/Vol] 184 10*3/uL Normal 150-400 [facility] Comment on above: Order Comment: Speci men Type: BLOOD SPECIMENOrdering Facility: [facility] Address: [address] [place] [address] Performed By: #### 5 7021-8 ####[facility] LABCLIA [id number] [place] [address] RBC (Bld) [#/Vol] 4.57 10*6/uL Normal 4.20-6.00 [facility] Comment on above: Order Comment: Speci men Type: BLOOD SPECIMENOrdering Facility: [facility] Address: [address] [place] [address] Performed By: #### 5 7021-8 ####[facility] LABCLIA [id number] [place] [address] WBC (Bld) [#/Vol] 3.36 10*3/uL Low 3.70-11.00 [facility] Comment on above: Order Comment: Speci men Type: BLOOD SPECIMENOrdering Facility: [facility] Address: [address] [place] [address] Performed By: #### 5 7021-8 ####[facility] LABCLIA [id number] [place] [address] Comprehensive metabolic 2000 panelOrdered By: Benson Alcaraz on 11-18-2023 Albumin [Mass/Vol] 4.5 g/dL 3.9 - 4.9 g/dL [facility] ALP [Catalytic activity/Vol] 171 U/L High 38 - 113 U/L [facility] ALT [Catalytic activity/Vol] 19 U/L 10 - 54 U/L [facility] Anion gap [Moles/Vol] 11 mmol/L 9 - 18 mmol/L [facility] AST [Catalytic activity/Vol] 21 U/L 14 - 40 U/L [facility] Bilirubin [Mass/Vol] 0.2 mg/dL 0.2 - 1 .3 mg/dL [facility] Calcium [Mass/Vol] 9.8 mg/dL 8.5 - 10. 2 mg/dL [facility] Chloride [Moles/Vol] 107 mmol/L High 97 - 10 5 mmol/L [facility] CO2 [Moles/Vol] 25 mmol/L 22 - 30 mmol/L [facility] Creatinine [Mass/Vol] 0.96 mg/dL 0.73 - 1.22 mg/dL [facility] GFR/1.73 sq M.predicted among non-blacks MDRD (S/P/Bld) [Vol rate/Area] 87 mL/min/{1.73_m2} - PINF [facility] Comment on above: Estimated Glomerular Filtration Rate [...] [Mass/Vol] 94 mg/dL 74 - 99 mg/dL [facility] Comment on above: The [place] Diab[employer] Association (ADA) provides guidance for [...] Standards of Medical Care in Diabetes 2016, [place] [employer]. Diabetes Care. 2016.39(Suppl 1). Interpretation and review of laboratory results Abnormal [facility] Potassium [Moles/Vol] 4.2 mmol/L 3.7 - 5.1 mmol/L [facility] Protein [Mass/Vol] 7.3 g/dL 6.3 - 8.0 g/dL [facility] Sodium [Moles/Vol] 143 mmol/L 136 - 144 mmol/L [facility] Urea nitrogen [Mass/Vol] 15 mg/dL 9 - 24 mg/dL [facility] Comprehensive metabolic 2000 panelon 11-18-2023 Albumin [Mass/Vol] 4.5 g/dL Normal 3.9-4.9 [facility] Comment on above: Order Comment: Speci men Type: BLOOD SPECIMENOrdering Facility: [facility] Address: [address] [place] [address] Performed By: #### 3 084-1, ####[facility] LABCLIA [id number] [place] [address] ALP [Catalytic activity/Vol] 171 U/L High 38-113 [facility] Comment on above: Order Comment: Speci men Type: BLOOD SPECIMENOrdering Facility: [facility] Address: [address] [place] [address] Performed By: #### 3 084-1, ####[facility] LABCLIA [id number] [place] [address] ALT [Catalytic activity/Vol] 19 U/L Normal 10-54 [facility] Comment on above: Order Comment: Speci men Type: BLOOD SPECIMENOrdering Facility: [facility] Address: [address] [place] [address] Performed By: #### 3 084-1, ####[facility] LABCLIA [id number] [place] [address] Anion gap [Moles/Vol] 11 mmol/L Normal 9-18 [facility] Comment on above: Order Comment: Speci men Type: BLOOD SPECIMENOrdering Facility: [facility] Address: [address] [place] [address] Performed By: #### 3 084-1, ####[facility] LABCLIA [id number] [place] [address] AST [Catalytic activity/Vol] 21 U/L Normal 14-40 [facility] Comment on above: Order Comment: Speci men Type: BLOOD SPECIMENOrdering Facility: [facility] Address: [address] [place] [address] Performed By: #### 3 084-1, 67108-4 ####[facility] LABCLIA [id number] [place] [address] Bilirubin [Mass/Vol] 0.2 mg/dL Normal 0.2-1.3 [facility] Comment on above: Order Comment: Speci men Type: BLOOD SPECIMENOrdering Facility: [facility] Address: [address] [place] [address] Performed By: #### 3 084-1, ####[facility] LABCLIA [id number] [place] [address] Calcium [Mass/Vol] 9.8 mg/dL Normal 8.5-10.2 [facility] Comment on above: Order Comment: Speci men Type: BLOOD SPECIMENOrdering Facility: [facility] Address: [address] [place] [address] Performed By: #### 3 084-1, ####[facility] LABCLIA [id number] [place] [address] Chloride [Moles/Vol] 107 mmol/L High 97-105 [facility] Comment on above: Order Comment: Speci men Type: BLOOD SPECIMENOrdering Facility: [facility] Address: [address] [place] [address] Performed By: #### 3 084-1, ####[facility] LABCLIA [id number] [place] [address] CO2 [Moles/Vol] 25 mmol/L Normal 22-30 [facility] Comment on above: Order Comment: Speci men Type: BLOOD SPECIMENOrdering Facility: [facility] Address: [address] [place] [address] Performed By: #### 3 084-1, ####[facility] LABCLIA [id number] [place] [address] Creatinine [Mass/Vol] 0.96 mg/dL Normal 0.73-1.22 [facility] Comment on above: Order Comment: Speci men Type: BLOOD SPECIMENOrdering Facility: [facility] Address: [address] [place] [address] Performed By: #### 3 084-1, 60414-9 ####[facility] LABCLIA [id number] [place] [address] Creatinine and Glomerular filtration rate.predicted panel (S/P/Bld) 87 mL/min/1.73m??? Normal >=60 [facility] Comment on above: Order Comment: Sara randle Type: BLOOD SPECIMENOrdering Facility: [facility] Address: [address] [place] [address] Result Comment: Carol mated Glomerular Filtration Rate [...] actual GFR. Performed By: #### 3 084-1, 42032-7 ####[facility] LABCLIA [id number] [place] [address] Glucose [Mass/Vol] 94 mg/dL Normal 74-99 [facility] Comment on above: Order Comment: Sara randle Type: BLOOD SPECIMENOrdering Facility: [facility] Address: [address] [place] [address] Result Comment: The [place] Diabetes Association (ADA) provides guidance for cutoff [...] Standards of Medical Care in Diabetes 2016, [place] Diabetes [employer]. Diabetes Care. 2016.39(Suppl 1). Performed By: #### 3 084-, ####[facility] LABCLIA [id number] [place] [address] Potassium [Moles/Vol] 4.2 mmol/L Normal 3.7-5.1 [facility] Comment on above: Order Comment: Speci men Type: BLOOD SPECIMENOrdering Facility: [facility] Address: [address] [place] [address] Performed By: #### 3 084-1, ####[facility] LABCLIA [id number] [place] [address] Protein [Mass/Vol] 7.3 g/dL Normal 6.3-8.0 [facility] Comment on above: Order Comment: Speci men Type: BLOOD SPECIMENOrdering Facility: [facility] Address: [address] [place] [address] Performed By: #### 3 084-1, ####[facility] LABCLIA [id number] [place] [address] Sodium [Moles/Vol] 143 mmol/L Normal 136-144 [facility] Comment on above: Order Comment: Speci men Type: BLOOD SPECIMENOrdering Facility: [facility] Address: [address] [place] [address] Performed By: #### 3 084-1, ####[facility] LABCLIA [id number] [place] [address] Urea nitrogen [Mass/Vol] 15 mg/dL Normal 9-24 [facility] Comment on above: Order Comment: Speci men Type: BLOOD SPECIMENOrdering Facility: [facility] Address: [address] [place] [address] Performed By: #### 3 084-1, ####[facility] LABCLIA [id number] [place] [address] GLUCOSE, BLOOD (POC)on 11-18 Glucose [Mass/Vol] 91 mg/dL 74 - 99 mg/dL [facility] Comment on above: Location:[facility], [address] [place] [address] , [place], [place], [address] The Accu-Chek Inform II glucose meter has [...] blood gas instrument) in the above situations. [facility] NM PET/CT SKULL-THIGH SUBQon 11-18-2023 NM PET/CT SKULL-THIGH SUBQ Normal [facility] PET+CT Guidance for localiza tion of [...] any questions regarding this interpretation, please call [phone]. If you are unable to reach us at the number above, please feel free to [facility] at [phone]. DIVISION OF RADIOLOGY * * *Final Report* [...] - Background liver activity (SUV max): 3.7 Dietitian Therapeutic (topogram) images: No additional findings. HEAD AND [...] No abnormal uptake. DIVISION OF RADIOLOGY Provider, [facility] - 11/18/2023 * * *Final Report* * [...] - Background liver activity (SUV max): 3.7 Dietitian Therapeutic (topogram) images: No additional findings. HEAD AND [...] any questions regarding this interpretation, please call [phone]. If you are unable to reach us at the number above, please feel free to contact [facility] eRadiology at [phone]. [facility] Radiology Study observation (narrative) [facility] PET+CT Guidance for localiza tion of tumor of Skull base to mid-thigh-- W 18F-FDG IVOrdered By: [facility] Provider on 11-18-2023 [facility] URIC ACID BLOODon 11-18-2023 Urate [Mass/Vol] 6.7 mg/dL 4.0 - 8.1 mg/dL [facility] Urate SerPl-mCncon Urate [Mass/Vol] 6.7 mg/dL Normal 4.0-8.[address] Comment on above: Order Comment: Speci men Type: BLOOD SPECIMENOrdering Facility: [facility] Address: [address] [place] [address] Performed By: #### 3 084-1, 78013-9 ####[facility] LABCLIA [id number] [place] [address] Urate [Mass/Vol]on Interpretation and review of laboratory results Normal [facility] CBC W Auto Differential pane l (Bld)on 10-28-2023 Basophils (Bld) [#/Vol] 0.06 10*3/uL Normal <0.11 [facility] Comment on above: Order Comment: Speci men Type: BLOOD SPECIMENOrdering Facility: [facility] Address: [address] [place] [address] Performed By: #### 5 7021-8 ####[facility] LABCLIA [id number] [place] [address] Basophils/100 WBC (Bld) 1.4 % Normal [facility] Comment on above: Order Comment: Speci men Type: BLOOD SPECIMENOrdering Facility: [facility] Address: [address] [place] [address] Performed By: #### 5 7021-8 ####[facility] LABCLIA [id number] [place] [address] Differential cell count method Nom (Bld) Auto Normal [facility] Comment on above: Order Comment: Speci men Type: BLOOD SPECIMENOrdering Facility: [facility] Address: [address] [place] [address] Performed By: #### 5 7021-8 ####[facility] LABCLIA [id number] [place] [address] Eosinophils (Bld) [#/Vol] 0.23 10*3/uL Normal <0.46 [facility] Comment on above: Order Comment: Speci men Type: BLOOD SPECIMENOrdering Facility: [facility] Address: [address] [place] [address] Performed By: #### 5 7021-8 ####[facility] LABCLIA [id number] [place] [address] Eosinophils/100 WBC (Bld) 5.2 % Normal [facility] Comment on above: Order Comment: Speci men Type: BLOOD SPECIMENOrdering Facility: [facility] Address: [address] [place] [address] Performed By: #### 5 7021-8 ####[facility] LABCLIA [id number] [place] [address] Erythrocyte distribution width (RBC) [Ratio] 14.0 % Normal 11.5-15.0 [facility] Comment on above: Order Comment: Speci men Type: BLOOD SPECIMENOrdering Facility: [facility] Address: [address] [place] [address] Performed By: #### 5 7021-8 ####[facility] LABIA [id number] [place] [address] Hematocrit (Bld) [Volume fraction] 39.6 % Normal 39.0-51.0 [facility] Comment on above: Order Comment: Speci men Type: BLOOD SPECIMENOrdering Facility: [facility] Address: [address] [place] [address] Performed By: #### 5 7021-8 ####[facility] LABCLIA [id number] [place] [address] Hemoglobin (Bld) [Mass/Vol] 13.8 g/dL Normal 13.0-17.0 [facility] Comment on above: Order Comment: Speci men Type: BLOOD SPECIMENOrdering Facility: [facility] Address: [address] [place] [address] Performed By: #### 5 7021-8 ####[facility] LABCLIA [id number] [place] [address] Immature granulocytes (Bld) [#/Vol] 0.04 10*3/uL Normal <0.10 [facility] Comment on above: Order Comment: Speci men Type: BLOOD SPECIMENOrdering Facility: [facility] Address: [address] [place] [address] Performed By: #### 5 7021-8 ####[facility] LABCLIA [id number] [place] [address] Immature granulocytes/100 WBC (Bld) 0.9 % Normal [facility] Comment on above: Order Comment: Speci men Type: BLOOD SPECIMENOrdering Facility: [facility] Address: [address] [place] [address] Performed By: #### 5 7021-8 ####[facility] LABCLIA [id number] [place] [address] Lymphocytes (Bld) [#/Vol] 0.46 10*3/uL Low 1.00-4.00 [facility] Comment on above: Order Comment: Speci men Type: BLOOD SPECIMENOrdering Facility: [facility] Address: [address] [place] [address] Performed By: #### 5 7021-8 ####[facility] LABCLIA [id number] [place] [address] Lymphocytes/100 WBC (Bld) 10.5 % Normal [facility] Comment on above: Order Comment: Speci men Type: BLOOD SPECIMENOrdering Facility: [facility] Address: [address] [place] [address] Performed By: #### 5 7021-8 ####[facility] LABCLIA [id number] [place] [address] MCH (RBC) [Entitic mass] 30.8 pg Normal 26.0-34.0 [facility] Comment on above: Order Comment: Speci men Type: BLOOD SPECIMENOrdering Facility: [facility] Address: [address] [place] [address] Performed By: #### 5 7021-8 ####[facility] LABIA [id number] [place] [address] MCHC (RBC) [Mass/Vol] 34.8 g/dL Normal 30.5-36.0 [facility] Comment on above: Order Comment: Speci men Type: BLOOD SPECIMENOrdering Facility: [facility] Address: [address] [place] [address] Performed By: #### 5 7021-8 ####[facility] LABIA [id number] [place] [address] MCV (RBC) [Entitic vol] 88.4 fL Normal 80.0-100.0 [facility] Comment on above: Order Comment: Speci men Type: BLOOD SPECIMENOrdering Facility: [facility] Address: [address] [place] [address] Performed By: #### 5 7021-8 ####[facility] LABIA [id number] [place] [address] Monocytes (Bld) [#/Vol] 0.82 10*3/uL Normal <0.87 [facility] Comment on above: Order Comment: Speci men Type: BLOOD SPECIMENOrdering Facility: [facility] Address: [address] [place] [address] Performed By: #### 5 7021-8 ####[facility] LABCLIA [id number] [place] [address] Monocytes/100 WBC (Bld) 18.7 % Normal [facility] Comment on above: Order Comment: Speci men Type: BLOOD SPECIMENOrdering Facility: [facility] Address: [address] [place] [address] Performed By: #### 5 7021-8 ####[facility] LABCLIA [id number] [place] [address] Neutrophils (Bld) [#/Vol] 2.78 10*3/uL Normal 1.45-7.50 [facility] Comment on above: Order Comment: Speci men Type: BLOOD SPECIMENOrdering Facility: [facility] Address: [address] [place] [address] Performed By: #### 5 7021-8 ####[facility] LABCLIA [id number] [place] [address] Neutrophils/100 WBC (Bld) 63.3 % Normal [facility] Comment on above: Order Comment: Speci men Type: BLOOD SPECIMENOrdering Facility: [facility] Address: [address] [place] [address] Performed By: #### 5 7021-8 ####[facility] LABCLIA [id number] [place] [address] Nucleated RBC (Bld) [#/Vol] 10*3/uL Normal <0.01 [facility] Comment on above: Order Comment: Speci men Type: BLOOD SPECIMENOrdering Facility: [facility] Address: [address] [place] [address] Performed By: #### 5 7021-8 ####[facility] LABIA [id number] [place] [address] Nucleated RBC/100 WBC (Bld) [Ratio] 0.0 /100 WBC Normal [facility] Comment on above: Order Comment: Speci men Type: BLOOD SPECIMENOrdering Facility: [facility] Address: [address] [place] [address] Performed By: #### 5 7021-8 ####[facility] LABCLIA [id number] [place] [address] Platelet mean volume (Bld) [Entitic vol] 10.0 fL Normal 9.0-12.7 [facility] Comment on above: Order Comment: Speci men Type: BLOOD SPECIMENOrdering Facility: [facility] Address: [address] [place] [address] Performed By: #### 5 7021-8 ####[facility] LABCLIA [id number] [place] [address] Platelets (Bld) [#/Vol] 165 10*3/uL Normal 150-400 [facility] Comment on above: Order Comment: Speci men Type: BLOOD SPECIMENOrdering Facility: [facility] Address: [address] [place] [address] Performed By: #### 5 7021-8 ####[facility] LABCLIA [id number] [place] [address] RBC (Bld) [#/Vol] 4.48 10*6/uL Normal 4.20-6.00 [facility] Comment on above: Order Comment: Speci men Type: BLOOD SPECIMENOrdering Facility: [facility] Address: [address] [place] [address] Performed By: #### 5 7021-8 ####[facility] LABCLIA [id number] [place] [address] WBC (Bld) [#/Vol] 4.39 10*3/uL Normal 3.70-11.00 [facility] Comment on above: Order Comment: Speci men Type: BLOOD SPECIMENOrdering Facility: [facility] Address: [address] [place] [address] Performed By: #### 5 7021-8 ####[facility] LABCLIA [id number] [place] [address] CNOVSPon 10-28-2023 CNOVSP Normal [facility] Comprehensive metabolic 2000 panelon 10-28-2023 Albumin [Mass/Vol] 4.2 g/dL Normal 3.9-4.9 [facility] Comment on above: Order Comment: Speci men Type: BLOOD SPECIMENOrdering Facility: [facility] Address: [address] [place] [address] Performed By: #### 2 4323-8 ####[facility] LABCLIA [id number] [place] [address] ALP [Catalytic activity/Vol] 163 U/L High 38-113 [facility] Comment on above: Order Comment: Speci men Type: BLOOD SPECIMENOrdering Facility: [facility] Address: [address] [place] [address] Performed By: #### 2 4323-8 ####[facility] LABCLIA [id number] [place] [address] ALT [Catalytic activity/Vol] 19 U/L Normal 10-54 [facility] Comment on above: Order Comment: Speci men Type: BLOOD SPECIMENOrdering Facility: [facility] Address: [address] [place] [address] Performed By: #### 2 4323-8 ####[facility] LABCLIA [id number] [place] [address] Anion gap [Moles/Vol] 15 mmol/L Normal 9-18 [facility] Comment on above: Order Comment: Speci men Type: BLOOD SPECIMENOrdering Facility: [facility] Address: [address] [place] [address] Performed By: #### 2 4323-8 ####[facility] LABIA [id number] [place] [address] AST [Catalytic activity/Vol] 19 U/L Normal 14-40 [facility] Comment on above: Order Comment: Speci men Type: BLOOD SPECIMENOrdering Facility: [facility] Address: [address] [place] [address] Performed By: #### 2 4323-8 ####[facility] LABCLIA [id number] [place] [address] Bilirubin [Mass/Vol] 0.3 mg/dL Normal 0.2-1.3 [facility] Comment on above: Order Comment: Speci men Type: BLOOD SPECIMENOrdering Facility: [facility] Address: [address] [place] [address] Performed By: #### 2 4323-8 ####[facility] LABCLIA [id number] [place] [address] Calcium [Mass/Vol] 9.7 mg/dL Normal 8.5-10.2 [facility] Comment on above: Order Comment: Speci men Type: BLOOD SPECIMENOrdering Facility: [facility] Address: [address] [place] [address] Performed By: #### 2 4323-8 ####[facility] LABCLIA [id number] [place] [address] Chloride [Moles/Vol] 104 mmol/L Normal 97-105 [facility] Comment on above: Order Comment: Speci men Type: BLOOD SPECIMENOrdering Facility: [facility] Address: [address] [place] [address] Performed By: #### 2 4323-8 ####[facility] LABCLIA [id number] [place] [address] CO2 [Moles/Vol] 21 mmol/L Low 22-30 [facility] Comment on above: Order Comment: Speci men Type: BLOOD SPECIMENOrdering Facility: [facility] Address: [address] [place] [address] Performed By: #### 2 4323-8 ####[facility] LABCLIA [id number] [place] [address] Creatinine [Mass/Vol] 0.96 mg/dL Normal 0.73-1.22 [facility] Comment on above: Order Comment: Sara randle Type: BLOOD SPECIMENOrdering Facility: [facility] Address: [address] [place] [address] Performed By: #### 2 4323-8 ####[facility] LABCLIA [id number] [place] [address] Creatinine and Glomerular filtration rate.predicted panel (S/P/Bld) 87 mL/min/1.73m??? Normal >=60 [facility] Comment on above: Order Comment: Specjos men Type: BLOOD SPECIMENOrdering Facility: [facility] Address: [address] [place] [address] Result Comment: Carol mated Glomerular Filtration Rate [...] actual GFR. Performed By: #### 2 4323-8 ####[facility] LABCLIA [id number] [place] [address] Glucose [Mass/Vol] 103 mg/dL High 74-99 [facility] Comment on above: Order Comment: Sara randle Type: BLOOD SPECIMENOrdering Facility: [facility] Address: [address] [place] [address] Result Comment: The [place] [employer] (ADA) provides guidance for cutoff [...] Standards of Medical Care in Diabetes 2016, [place] [employer]. Diabetes Care. 2016.39(Suppl 1). Performed By: #### 2 4323-8 ####[facility] LABCLIA [id number] [place] [address] Potassium [Moles/Vol] 4.3 mmol/L Normal 3.7-5.1 [facility] Comment on above: Order Comment: Speci men Type: BLOOD SPECIMENOrdering Facility: [facility] Address: [address] [place] [address] Performed By: #### 2 4323-8 ####[facility] LABCLIA [id number] [place] [address] Protein [Mass/Vol] 7.1 g/dL Normal 6.3-8.0 [facility] Comment on above: Order Comment: Speci men Type: BLOOD SPECIMENOrdering Facility: [facility] Address: [address] [place] [address] Performed By: #### 2 4323-8 ####[facility] LABCLIA [id number] [place] [address] Sodium [Moles/Vol] 140 mmol/L Normal 136-144 [facility] Comment on above: Order Comment: Speci men Type: BLOOD SPECIMENOrdering Facility: [facility] Address: [address] [place] [address] Performed By: #### 2 4323-8 ####[facility] LABCLIA [id number] [place] [address] Urea nitrogen [Mass/Vol] 15 mg/dL Normal 9-24 [facility] Comment on above: Order Comment: Speci men Type: BLOOD SPECIMENOrdering Facility: [facility] Address: [address] [place] [address] Performed By: #### 2 4323-8 ####[facility] LABIA [id number] [place] [address] CNPNon 10-23-2023 CNPN Normal [facility] CBC W Auto Differential pane l (Bld)on 09-30-2023 Basophils (Bld) [#/Vol] 0.06 10*3/uL <0.11 k/uL [facility] Basophils/100 WBC (Bld) 1.1 % [facility] Differential cell count method Nom (Bld) Auto [facility] Eosinophils (Bld) [#/Vol] 0.24 10*3/uL <0.46 k/uL [facility] Eosinophils/100 WBC (Bld) 4.4 % [facility] Erythrocyte distribution width (RBC) [Ratio] 14.6 % 11.5 - 15.0 % [facility] Hematocrit (Bld) [Volume fraction] 40.7 % 39.0 - 51.0 % [facility] Hemoglobin (Bld) [Mass/Vol] 14.1 g/dL 13.0 - 17.0 g/dL [facility] Immature granulocytes (Bld) [#/Vol] 0.07 10*3/uL <0.10 k/uL [facility] Immature granulocytes/100 WBC (Bld) 1.3 % [facility] Lymphocytes (Bld) [#/Vol] 0.80 10*3/uL Low 1.00 - 4.00 k/uL [facility] Lymphocytes/100 WBC (Bld) 14.7 % [facility] MCH (RBC) [Entitic mass] 30.5 pg 26.0 - 34.0 pg [facility] MCHC (RBC) [Mass/Vol] 34.6 g/dL 30.5 - 36.0 g/dL [facility] MCV (RBC) [Entitic vol] 87.9 fL 80.0 - 100.0 fL [facility] Monocytes (Bld) [#/Vol] 1.18 10*3/uL High <0.87 k/uL [facility] Monocytes/100 WBC (Bld) 21.7 % [facility] Neutrophils (Bld) [#/Vol] 3.08 10*3/uL 1.45 - 7.50 k/uL [facility] Neutrophils/100 WBC (Bld) 56.8 % [facility] Nucleated RBC (Bld) [#/Vol] <0.01 k/uL [facility] Nucleated RBC/100 WBC (Bld) [Ratio] 0.0 /100 WBC [facility] Platelet mean volume (Bld) [Entitic vol] 9.1 fL 9.0 - 12.7 fL [facility] Platelets (Bld) [#/Vol] 194 10*3/uL 150 - 400 k/uL [facility] RBC (Bld) [#/Vol] 4.63 10*6/uL 4.20 - 6.00 m/uL [facility] WBC (Bld) [#/Vol] 5.43 10*3/uL 3.70 - 11.00 k/uL [facility] Basophils (Bld) [#/Vol] 0.06 10*3/uL Normal <0.11 [facility] Comment on above: Order Comment: Speci men Type: BLOOD SPECIMENOrdering Facility: [facility] Address: [address] [place] [address] Performed By: #### 5 7021-8 ####[facility] LABCLIA [id number] [place] [address] Basophils/100 WBC (Bld) 1.1 % Normal [facility] Comment on above: Order Comment: Speci men Type: BLOOD SPECIMENOrdering Facility: [facility] Address: [address] [place] [address] Performed By: #### 5 7021-8 ####[facility] LABCLIA [id number] [place] [address] Differential cell count method Nom (Bld) Auto Normal [facility] Comment on above: Order Comment: Speci men Type: BLOOD SPECIMENOrdering Facility: [facility] Address: [address] [place] [address] Performed By: #### 5 7021-8 ####[facility] LABCLIA [id number] [place] [address] Eosinophils (Bld) [#/Vol] 0.24 10*3/uL Normal <0.46 [facility] Comment on above: Order Comment: Speci men Type: BLOOD SPECIMENOrdering Facility: [facility] Address: [address] [place] [address] Performed By: #### 5 7021-8 ####[facility] LABCLIA [id number] [place] [address] Eosinophils/100 WBC (Bld) 4.4 % Normal [facility] Comment on above: Order Comment: Speci men Type: BLOOD SPECIMENOrdering Facility: [facility] Address: [address] [place] [address] Performed By: #### 5 7021-8 ####[facility] LABCLIA [id number] [place] [address] Erythrocyte distribution width (RBC) [Ratio] 14.6 % Normal 11.5-15.0 [facility] Comment on above: Order Comment: Speci men Type: BLOOD SPECIMENOrdering Facility: [facility] Address: [address] [place] [address] Performed By: #### 5 7021-8 ####[facility] LABCLIA [id number] [place] [address] Hematocrit (Bld) [Volume fraction] 40.7 % Normal 39.0-51.0 [facility] Comment on above: Order Comment: Speci men Type: BLOOD SPECIMENOrdering Facility: [facility] Address: [address] [place] [address] Performed By: #### 5 7021-8 ####[facility] LABCLIA [id number] [place] [address] Hemoglobin (Bld) [Mass/Vol] 14.1 g/dL Normal 13.0-17.0 [facility] Comment on above: Order Comment: Speci men Type: BLOOD SPECIMENOrdering Facility: [facility] Address: [address] [place] [address] Performed By: #### 5 7021-8 ####[facility] LABCLIA [id number] [place] [address] Immature granulocytes (Bld) [#/Vol] 0.07 10*3/uL Normal <0.10 [facility] Comment on above: Order Comment: Speci men Type: BLOOD SPECIMENOrdering Facility: [facility] Address: [address] [place] [address] Performed By: #### 5 7021-8 ####[facility] LABCLIA [id number] [place] [address] Immature granulocytes/100 WBC (Bld) 1.3 % Normal [facility] Comment on above: Order Comment: Speci men Type: BLOOD SPECIMENOrdering Facility: [facility] Address: [address] [place] [address] Performed By: #### 5 7021-8 ####[facility] LABCLIA [id number] [place] [address] Lymphocytes (Bld) [#/Vol] 0.80 10*3/uL Low 1.00-4.00 [facility] Comment on above: Order Comment: Speci men Type: BLOOD SPECIMENOrdering Facility: [facility] Address: [address] [place] [address] Performed By: #### 5 7021-8 ####[facility] LABCLIA [id number] [place] [address] Lymphocytes/100 WBC (Bld) 14.7 % Normal [facility] Comment on above: Order Comment: Speci men Type: BLOOD SPECIMENOrdering Facility: [facility] Address: [address] [place] [address] Performed By: #### 5 7021-8 ####[facility] LABCLIA [id number] [place] [address] MCH (RBC) [Entitic mass] 30.5 pg Normal 26.0-34.0 [facility] Comment on above: Order Comment: Speci men Type: BLOOD SPECIMENOrdering Facility: [facility] Address: [address] [place] [address] Performed By: #### 5 7021-8 ####[facility] LABCLIA [id number] [place] [address] MCHC (RBC) [Mass/Vol] 34.6 g/dL Normal 30.5-36.0 [facility] Comment on above: Order Comment: Speci men Type: BLOOD SPECIMENOrdering Facility: [facility] Address: [address] [place] [address] Performed By: #### 5 7021-8 ####[facility] LABCLIA [id number] [place] [address] MCV (RBC) [Entitic vol] 87.9 fL Normal 80.0-100.0 [facility] Comment on above: Order Comment: Speci men Type: BLOOD SPECIMENOrdering Facility: [facility] Address: [address] [place] [address] Performed By: #### 5 7021-8 ####[facility] LABCLIA [id number] [place] [address] Monocytes (Bld) [#/Vol] 1.18 10*3/uL High <0.87 [facility] Comment on above: Order Comment: Speci men Type: BLOOD SPECIMENOrdering Facility: [facility] Address: [address] [place] [address] Performed By: #### 5 7021-8 ####[facility] LABCLIA [id number] [place] [address] Monocytes/100 WBC (Bld) 21.7 % Normal [facility] Comment on above: Order Comment: Speci men Type: BLOOD SPECIMENOrdering Facility: [facility] Address: [address] [place] [address] Performed By: #### 5 7021-8 ####[facility] LABCLIA [id number] [place] [address] Neutrophils (Bld) [#/Vol] 3.08 10*3/uL Normal 1.45-7.50 [facility] Comment on above: Order Comment: Speci men Type: BLOOD SPECIMENOrdering Facility: [facility] Address: [address] [place] [address] Performed By: #### 5 7021-8 ####[facility] LABCLIA [id number] [place] [address] Neutrophils/100 WBC (Bld) 56.8 % Normal [facility] Comment on above: Order Comment: Speci men Type: BLOOD SPECIMENOrdering Facility: [facility] Address: [address] [place] [address] Performed By: #### 5 7021-8 ####[facility] LABCLIA [id number] [place] [address] Nucleated RBC (Bld) [#/Vol] 10*3/uL Normal <0.01 [facility] Comment on above: Order Comment: Speci men Type: BLOOD SPECIMENOrdering Facility: [facility] Address: [address] [place] [address] Performed By: #### 5 7021-8 ####[facility] LABCLIA [id number] [place] [address] Nucleated RBC/100 WBC (Bld) [Ratio] 0.0 /100 WBC Normal [facility] Comment on above: Order Comment: Speci men Type: BLOOD SPECIMENOrdering Facility: [facility] Address: [address] [place] [address] Performed By: #### 5 7021-8 ####[facility] LABCLIA [id number] [place] [address] Platelet mean volume (Bld) [Entitic vol] 9.1 fL Normal 9.0-12.7 [facility] Comment on above: Order Comment: Speci men Type: BLOOD SPECIMENOrdering Facility: [facility] Address: [address] [place] [address] Performed By: #### 5 7021-8 ####[facility] LABCLIA [id number] [place] [address] Platelets (Bld) [#/Vol] 194 10*3/uL Normal 150-400 [facility] Comment on above: Order Comment: Speci men Type: BLOOD SPECIMENOrdering Facility: [facility] Address: [address] [place] [address] Performed By: #### 5 7021-8 ####[facility] LABCLIA [id number] [place] [address] RBC (Bld) [#/Vol] 4.63 10*6/uL Normal 4.20-6.00 [facility] Comment on above: Order Comment: Speci men Type: BLOOD SPECIMENOrdering Facility: [facility] Address: [address] [place] [address] Performed By: #### 5 7021-8 ####[facility] LABCLIA [id number] [place] [address] WBC (Bld) [#/Vol] 5.43 10*3/uL Normal 3.70-11.00 [facility] Comment on above: Order Comment: Speci men Type: BLOOD SPECIMENOrdering Facility: [facility] Address: [address] [place], [place] [address] Performed By: #### 5 7021-8 ####[facility] LABCLIA [id number] [place] [address] CNOVSPon 09-30-2023 CNOVSP Normal [facility] metabolic 2000 panelon 09-30-2023 Albumin [Mass/Vol] 4.3 g/dL 3.9 - 4.9 g/dL [facility] ALP [Catalytic activity/Vol] 175 U/L High 38 - 113 U/L [facility] ALT [Catalytic activity/Vol] 18 U/L 10 - 54 U/L [facility] Anion gap [Moles/Vol] 11 mmol/L 9 - 18 mmol/L [facility] AST [Catalytic activity/Vol] 16 U/L 14 - 40 U/L [facility] Bilirubin [Mass/Vol] 0.2 mg/dL 0.2 - 1 .3 mg/dL [facility] Calcium [Mass/Vol] 9.5 mg/dL 8.5 - 10. 2 mg/dL [facility] Chloride [Moles/Vol] 104 mmol/L 97 - 10 5 mmol/L [facility] CO2 [Moles/Vol] 24 mmol/L 22 - 30 mmol/L [facility] Creatinine [Mass/Vol] 0.97 mg/dL 0.73 - 1.22 mg/dL [facility] Estimated Glomerular Filtration Rate 86 mL/min/1.73m >=60 mL/min/1.7 3m [facility] Glucose [Mass/Vol] 101 mg/dL High 74 - 99 mg/dL [facility] Potassium [Moles/Vol] 4.2 mmol/L 3.7 - 5.1 mmol/L [facility] Protein [Mass/Vol] 7.0 g/dL 6.3 - 8.0 g/dL [facility] Sodium [Moles/Vol] 139 mmol/L 136 - 144 mmol/L [facility] Urea nitrogen [Mass/Vol] 25 mg/dL High 9 - 24 mg/dL [facility] Albumin [Mass/Vol] 4.3 g/dL Normal 3.9-4.9 [facility] Comment on above: Order Comment: Speci men Type: BLOOD SPECIMENOrdering Facility: [facility] Address: [address] [place] [address] Performed By: #### 2 4323-8, 3083-11 ####[facility] LABCLIA [id number] [place] [address] ALP [Catalytic activity/Vol] 175 U/L High 38-113 [facility] Comment on above: Order Comment: Speci men Type: BLOOD SPECIMENOrdering Facility: [facility] Address: [address] [place] [address] Performed By: #### 2 4323-8, 3083- ####[facility] LABCLIA [id number] [place] [address] ALT [Catalytic activity/Vol] 18 U/L Normal 10-54 [facility] Comment on above: Order Comment: Speci men Type: BLOOD SPECIMENOrdering Facility: [facility] Address: [address] [place] [address] Performed By: #### 2 4323-8, 3083-11 ####[facility] LABCLIA [id number] [place] [address] Anion gap [Moles/Vol] 11 mmol/L Normal 9-18 [facility] Comment on above: Order Comment: Speci men Type: BLOOD SPECIMENOrdering Facility: [facility] Address: [address] [place] [address] Performed By: #### 2 4323-8, 308- ####[facility] LABCLIA [id number] [place] [address] AST [Catalytic activity/Vol] 16 U/L Normal 14-40 [facility] Comment on above: Order Comment: Speci men Type: BLOOD SPECIMENOrdering Facility: [facility] Address: [address] [place] [address] Performed By: #### 2 4323-8, 3083- ####[facility] LABIA [id number] [place] [address] Bilirubin [Mass/Vol] 0.2 mg/dL Normal 0.2-1.3 [facility] Comment on above: Order Comment: Speci men Type: BLOOD SPECIMENOrdering Facility: [facility] Address: [address] [place] [address] Performed By: #### 2 4323-8, 3083- ####[facility] LABIA [id number] [place] [address] Calcium [Mass/Vol] 9.5 mg/dL Normal 8.5-10.2 [facility] Comment on above: Order Comment: Speci men Type: BLOOD SPECIMENOrdering Facility: [facility] Address: [address] [place] [id number] Performed By: #### 2 4323-8, 3083- ####[facility] LABIA [id number] [place] [address] Chloride [Moles/Vol] 104 mmol/L Normal 97-105 [facility] Comment on above: Order Comment: Speci men Type: BLOOD SPECIMENOrdering Facility: [facility] Address: [address] [place] [address] Performed By: #### 2 4323-8, 3083-11 ####[facility] LABCLIA [id number] [place] [address] CO2 [Moles/Vol] 24 mmol/L Normal 22-30 [facility] Comment on above: Order Comment: Speci men Type: BLOOD SPECIMENOrdering Facility: [facility] Address: [address] [place] [address] Performed By: #### 2 4323-8, 3083-11 ####[facility] LABCLIA [id number] [place] [address] Creatinine [Mass/Vol] 0.97 mg/dL Normal 0.73-1.22 [facility] Comment on above: Order Comment: Speci men Type: BLOOD SPECIMENOrdering Facility: [facility] Address: [address] [place] [address] Performed By: #### 2 4323-8, 3083-11 ####[facility] LABCLIA [id number] [place] [address] Creatinine and Glomerular filtration rate.predicted panel (S/P/Bld) 86 mL/min/1.73m??? Normal >=60 [facility] Comment on above: Order Comment: Speci men Type: BLOOD SPECIMENOrdering Facility: [facility] Address: [address] [place] [address] Result Comment: Carol mated Glomerular Filtration Rate [...] GFR. Performed By: #### 2 4323-8, 3083-11 ####[facility] LABCLIA [id number] [place] [address] Glucose [Mass/Vol] 101 mg/dL High 74-99 [facility] Comment on above: Order Comment: Speci men Type: BLOOD SPECIMENOrdering Facility: [facility] Address: [address] [place], [place] [address] Result Comment: The [place] [employer] (ADA) provides guidance for cutoff [...] Standards of Medical Care in Diabetes 2016, [place] [employer]. Diabetes Care. 2016.39(Suppl 1). Performed By: #### 2 4323-8, 3083-11 ####[facility] LABCLIA [id number] [place] [address] Potassium [Moles/Vol] 4.2 mmol/L Normal 3.7-5.1 [facility] Comment on above: Order Comment: Speci men Type: BLOOD SPECIMENOrdering Facility: [facility] Address: [address] [place] [address] Performed By: #### 2 4323-8, 3083-11 ####[facility] LABCLIA [id number] [place] [address] Protein [Mass/Vol] 7.0 g/dL Normal 6.3-8.0 [facility] Comment on above: Order Comment: Speci men Type: BLOOD SPECIMENOrdering Facility: [facility] Address: [address] [place] [address] Performed By: #### 2 4323-8, 3083-11 ####[facility] LABCLIA [id number] [place] [address] Sodium [Moles/Vol] 139 mmol/L Normal 136-144 [facility] Comment on above: Order Comment: Speci men Type: BLOOD SPECIMENOrdering Facility: [facility] Address: [place] [address] Performed By: #### 2 4323-8, 3083-11 ####[facility] LABCLIA [id number] [place] [address] Urea nitrogen [Mass/Vol] 25 mg/dL High 9-24 [facility] Comment on above: Order Comment: Speci men Type: BLOOD SPECIMENOrdering Facility: [facility] Address: [address] [place] [id number] Performed By: #### 2 4323-8, 3083-11 ####[facility] LABCLIA [id number] [place] [address] URIC ACID BLOODon 09-30-2023 Urate [Mass/Vol] 7.2 mg/dL 4.0 - 8.1 mg/dL [facility] Urate SerPl-mCncon Urate [Mass/Vol] 7.2 mg/dL Normal 4.0-8.1 [facility] Comment on above: Order Comment: Speci men Type: BLOOD SPECIMENOrdering Facility: [facility] Address: [address] [place] [place] [id number] Performed By: #### 2 4323-8, 3083-11 ####[facility] LABCLIA [id number] [place] [address] GLUCOSE, BLOOD (POC)on 09-23 Glucose [Mass/Vol] 90 mg/dL 74 - 99 mg/dL [facility] Comment on above: Location:[facility], [address] , [place], [place], [address] The Accu-Chek Inform II glucose meter has [...] blood gas instrument) in the above situations. [facility] NM PET/CT SKULL-THIGH SUBQon 09-23-2023 NM PET/CT SKULL-THIGH SUBQ Normal [facility] PET+CT Guidance for localiza tion of [...] any questions regarding this interpretation, please call [phone]. If you are unable to reach us at the number above, please feel free to contact [facility] at [phone]. DIVISION OF RADIOLOGY * * *Final Report* [...] SKELETON: There are no hypermetabolic osseous lesions. Dietitian Therapeutic (topogram) images:No additional findings DIVISION OF RADIOLOGY Provider, [facility] - 09/23/2023 * * *Final Report* * [...] SKELETON: There are no hypermetabolic osseous lesions. Dietitian Therapeutic (topogram) images:No additional findings IMPRESSION IMPRESSION:Most of [...] any questions regarding this interpretation, please call [phone]. If you are unable to reach us at the number above, please feel free to contact [facility] at [phone]. [facility] Radiology Study observation (narrative) [facility] PET+CT Guidance for localiza tion of tumor of Skull base to mid-thigh-- W [id number]-FDG IVOrdered By: Ccf Provider on 09-23-2023 [facility] Consultation Noteon 08-08-20 Consultation Note [id number] Normal [facility] CBC W Auto Differential pane l (Bld)on 08-05-2023 Basophils (Bld) [#/Vol] 0.08 10*3/uL <0.11 k/uL [facility] Basophils/100 WBC (Bld) 1.3 % [facility] Differential cell count method Nom (Bld) Auto [facility] Eosinophils (Bld) [#/Vol] 0.27 10*3/uL <0.46 k/uL [facility] Eosinophils/100 WBC (Bld) 4.4 % [facility] Erythrocyte distribution width (RBC) [Ratio] 16.2 % High 11.5 - 15.0 % [facility] Hematocrit (Bld) [Volume fraction] 41.6 % 39.0 - 51.0 % [facility] Hemoglobin (Bld) [Mass/Vol] 13.8 g/dL 13.0 - 17.0 g/dL [facility] Immature granulocytes (Bld) [#/Vol] 0.06 10*3/uL <0.10 k/uL [facility] Immature granulocytes/100 WBC (Bld) 1.0 % [facility] Lymphocytes (Bld) [#/Vol] 0.46 10*3/uL Low 1.00 - 4.00 k/uL [facility] Lymphocytes/100 WBC (Bld) 7.6 % [facility] MCH (RBC) [Entitic mass] 29.5 pg 26.0 - 34.0 pg [facility] MCHC (RBC) [Mass/Vol] 33.2 g/dL 30.5 - 36.0 g/dL [facility] MCV (RBC) [Entitic vol] 88.9 fL 80.0 - 100.0 fL [facility] Monocytes (Bld) [#/Vol] 1.03 10*3/uL High <0.87 k/uL [facility] Monocytes/100 WBC (Bld) 17.0 % [facility] Neutrophils (Bld) [#/Vol] 4.17 10*3/uL 1.45 - 7.50 k/uL [facility] Neutrophils/100 WBC (Bld) 68.7 % [facility] Nucleated RBC (Bld) [#/Vol] <0.01 k/uL [facility] Nucleated RBC/100 WBC (Bld) [Ratio] 0.0 /100 WBC [facility] Platelet mean volume (Bld) [Entitic vol] 10.3 fL 9.0 - 12.7 fL [facility] Platelets (Bld) [#/Vol] 143 10*3/uL Low 150 - 400 k/uL [facility] RBC (Bld) [#/Vol] 4.68 10*6/uL 4.20 - 6.00 m/uL [facility] WBC (Bld) [#/Vol] 6.07 10*3/uL 3.70 - 11.00 k/uL [facility] Comprehensive metabolic 2000 panelon 08-05-2023 Albumin [Mass/Vol] 4.2 g/dL 3.9 - 4.9 g/dL [facility] ALP [Catalytic activity/Vol] 198 U/L High 38 - 113 U/L [facility] ALT [Catalytic activity/Vol] 19 U/L 10 - 54 U/L [facility] Anion gap [Moles/Vol] 9 mmol/L 9 - 18 mmol/L [facility] AST [Catalytic activity/Vol] 18 U/L 14 - 40 U/L [facility] Bilirubin [Mass/Vol] 0.2 mg/dL 0.2 - 1 .3 mg/dL [facility] Calcium [Mass/Vol] 9.5 mg/dL 8.5 - 10. 2 mg/dL [facility] Chloride [Moles/Vol] 107 mmol/L High 97 - 10 5 mmol/L [facility] CO2 [Moles/Vol] 23 mmol/L 22 - 30 mmol/L [facility] Creatinine [Mass/Vol] 0.90 mg/dL 0.73 - 1.22 mg/dL [facility] Estimated Glomerular Filtration Rate 94 mL/min/1.73m >=60 mL/min/1.7 3m [facility] Glucose [Mass/Vol] 104 mg/dL High 74 - 99 mg/dL [facility] Potassium [Moles/Vol] 4.2 mmol/L 3.7 - 5.1 mmol/L [facility] Protein [Mass/Vol] 6.8 g/dL 6.3 - 8.0 g/dL [facility] Sodium [Moles/Vol] 139 mmol/L 136 - 144 mmol/L [facility] Urea nitrogen [Mass/Vol] 17 mg/dL 9 - 24 mg/dL [facility] Basic metabolic 2000 panelon 07-22-2023 Anion gap [Moles/Vol] 13 mmol/L 9 - 18 mmol/L [facility] Calcium [Mass/Vol] 9.7 mg/dL 8.5 - 10. 2 mg/dL [facility] Chloride [Moles/Vol] 105 mmol/L 97 - 10 5 mmol/L [facility] CO2 [Moles/Vol] 23 mmol/L 22 - 30 mmol/L [facility] Creatinine [Mass/Vol] 0.96 mg/dL 0.73 - 1.22 mg/dL [facility] Estimated Glomerular Filtration Rate 87 mL/min/1.73m >=60 mL/min/1.7 3m [facility] Glucose [Mass/Vol] 101 mg/dL High 74 - 99 mg/dL [facility] Potassium [Moles/Vol] 4.7 mmol/L 3.7 - 5.1 mmol/L [facility] Sodium [Moles/Vol] 141 mmol/L 136 - 144 mmol/L [facility] Urea nitrogen [Mass/Vol] 14 mg/dL 9 - 24 mg/dL [facility] CBC W Auto Differential pane l (Bld)on 07-22-2023 Basophils (Bld) [#/Vol] 0.07 10*3/uL <0.11 k/uL [facility] Basophils/100 WBC (Bld) 1.2 % [facility] Differential cell count method Nom (Bld) Auto [facility] Eosinophils (Bld) [#/Vol] 0.17 10*3/uL <0.46 k/uL [facility] Eosinophils/100 WBC (Bld) 3.0 % [facility] Erythrocyte distribution width (RBC) [Ratio] 16.1 % High 11.5 - 15.0 % [facility] Hematocrit (Bld) [Volume fraction] 46.9 % 39.0 - 51.0 % [facility] Hemoglobin (Bld) [Mass/Vol] 15.2 g/dL 13.0 - 17.0 g/dL [facility] Immature granulocytes (Bld) [#/Vol] 0.09 10*3/uL <0.10 k/uL [facility] Immature granulocytes/100 WBC (Bld) 1.6 % [facility] Lymphocytes (Bld) [#/Vol] 0.26 10*3/uL Low 1.00 - 4.00 k/uL [facility] Lymphocytes/100 WBC (Bld) 4.6 % [facility] MCH (RBC) [Entitic mass] 29.0 pg 26.0 - 34.0 pg [facility] MCHC (RBC) [Mass/Vol] 32.4 g/dL 30.5 - 36.0 g/dL [facility] MCV (RBC) [Entitic vol] 89.5 fL 80.0 - 100.0 fL [facility] Monocytes (Bld) [#/Vol] 1.09 10*3/uL High <0.87 k/uL [facility] Monocytes/100 WBC (Bld) 19.3 % [facility] Neutrophils (Bld) [#/Vol] 3.97 10*3/uL 1.45 - 7.50 k/uL [facility] Neutrophils/100 WBC (Bld) 70.3 % [facility] Nucleated RBC (Bld) [#/Vol] <0.01 k/uL [facility] Nucleated RBC/100 WBC (Bld) [Ratio] 0.0 /100 WBC [facility] Platelet mean volume (Bld) [Entitic vol] 10.0 fL 9.0 - 12.7 fL [facility] Platelets (Bld) [#/Vol] 242 10*3/uL 150 - 400 k/uL [facility] RBC (Bld) [#/Vol] 5.24 10*6/uL 4.20 - 6.00 m/uL [facility] WBC (Bld) [#/Vol] 5.65 10*3/uL 3.70 - 11.00 k/uL [facility] URIC ACID BLOODon 07-22-2023 Urate [Mass/Vol] 6.1 mg/dL 4.0 - 8.1 mg/dL [facility] CBC W Auto Differential pane l (Bld)on 07-08-2023 Basophils (Bld) [#/Vol] 0.06 10*3/uL <0.11 k/uL [facility] Basophils/100 WBC (Bld) 0.8 % [facility] Differential cell count method Nom (Bld) Auto [facility] Eosinophils (Bld) [#/Vol] 0.24 10*3/uL <0.46 k/uL [facility] Eosinophils/100 WBC (Bld) 3.1 % [facility] Erythrocyte distribution width (RBC) [Ratio] 15.9 % High 11.5 - 15.0 % [facility] Hematocrit (Bld) [Volume fraction] 41.1 % 39.0 - 51.0 % [facility] Hemoglobin (Bld) [Mass/Vol] 13.3 g/dL 13.0 - 17.0 g/dL [facility] Immature granulocytes (Bld) [#/Vol] 0.03 10*3/uL <0.10 k/uL [facility] Immature granulocytes/100 WBC (Bld) 0.4 % [facility] Lymphocytes (Bld) [#/Vol] 0.25 10*3/uL Low 1.00 - 4.00 k/uL [facility] Lymphocytes/100 WBC (Bld) 3.2 % [facility] MCH (RBC) [Entitic mass] 28.8 pg 26.0 - 34.0 pg [facility] MCHC (RBC) [Mass/Vol] 32.4 g/dL 30.5 - 36.0 g/dL [facility] MCV (RBC) [Entitic vol] 89.0 fL 80.0 - 100.0 fL [facility] Monocytes (Bld) [#/Vol] 0.52 10*3/uL <0.87 k/uL [facility] Monocytes/100 WBC (Bld) 6.6 % [facility] Neutrophils (Bld) [#/Vol] 6.73 10*3/uL 1.45 - 7.50 k/uL [facility] Neutrophils/100 WBC (Bld) 85.9 % [facility] Nucleated RBC (Bld) [#/Vol] <0.01 k/uL [facility] Nucleated RBC/100 WBC (Bld) [Ratio] 0.0 /100 WBC [facility] Platelet mean volume (Bld) [Entitic vol] 10.1 fL 9.0 - 12.7 fL [facility] Platelets (Bld) [#/Vol] 146 10*3/uL Low 150 - 400 k/uL [facility] RBC (Bld) [#/Vol] 4.62 10*6/uL 4.20 - 6.00 m/uL [facility] WBC (Bld) [#/Vol] 7.83 10*3/uL 3.70 - 11.00 k/uL [facility] Comprehensive metabolic 2000 panelon 07-08-2023 Albumin [Mass/Vol] 3.9 g/dL 3.9 - 4.9 g/dL [facility] ALP [Catalytic activity/Vol] 228 U/L High 38 - 113 U/L [facility] ALT [Catalytic activity/Vol] 19 U/L 10 - 54 U/L [facility] Anion gap [Moles/Vol] 11 mmol/L 9 - 18 mmol/L [facility] AST [Catalytic activity/Vol] 17 U/L 14 - 40 U/L [facility] Bilirubin [Mass/Vol] 0.3 mg/dL 0.2 - 1 .3 mg/dL [facility] Calcium [Mass/Vol] 9.3 mg/dL 8.5 - 10. 2 mg/dL [facility] Chloride [Moles/Vol] 102 mmol/L 97 - 10 5 mmol/L [facility] CO2 [Moles/Vol] 22 mmol/L 22 - 30 mmol/L [facility] Creatinine [Mass/Vol] 0.90 mg/dL 0.73 - 1.22 mg/dL [facility] Estimated Glomerular Filtration Rate 94 mL/min/1.73m >=60 mL/min/1.7 3m [facility] Glucose [Mass/Vol] 119 mg/dL High 74 - 99 mg/dL [facility] Potassium [Moles/Vol] 4.2 mmol/L 3.7 - 5.1 mmol/L [facility] Protein [Mass/Vol] 6.9 g/dL 6.3 - 8.0 g/dL [facility] Sodium [Moles/Vol] 135 mmol/L Low 136 - 144 mmol/L [facility] Urea nitrogen [Mass/Vol] 15 mg/dL 9 - 24 mg/dL [facility] Laboratory - Chemistry and C hemistry - challengeon 07-08-2023 Urate [Mass/Vol] 5.7 mg/dL 4.0 - 8.1 mg/dL [facility] Basic metabolic 2000 panelon 06-19-2023 Anion gap [Moles/Vol] 9 mmol/L 9 - 18 mmol/L [facility] Calcium [Mass/Vol] 9.0 mg/dL 8.5 - 10. 2 mg/dL [facility] Chloride [Moles/Vol] 102 mmol/L 97 - 10 5 mmol/L [facility] CO2 [Moles/Vol] 25 mmol/L 22 - 30 mmol/L [facility] Creatinine [Mass/Vol] 0.98 mg/dL 0.73 - 1.22 mg/dL [facility] Estimated Glomerular Filtration Rate 85 mL/min/1.73m >=60 mL/min/1.7 3m [facility] Glucose [Mass/Vol] 95 mg/dL 74 - 99 mg/dL [facility] Potassium [Moles/Vol] 4.1 mmol/L 3.7 - 5.1 mmol/L [facility] Sodium [Moles/Vol] 136 mmol/L 136 - 144 mmol/L [facility] Urea nitrogen [Mass/Vol] 19 mg/dL 9 - 24 mg/dL [facility] CBC W Auto Differential pane l (Bld)on 06-19-2023 Basophils (Bld) [#/Vol] 0.07 10*3/uL <0.11 k/uL [facility] Basophils/100 WBC (Bld) 0.7 % [facility] Differential cell count method Nom (Bld) Auto [facility] Eosinophils (Bld) [#/Vol] 0.39 10*3/uL <0.46 k/uL [facility] Eosinophils/100 WBC (Bld) 4.1 % [facility] Erythrocyte distribution width (RBC) [Ratio] 16.4 % High 11.5 - 15.0 % [facility] Hematocrit (Bld) [Volume fraction] 40.4 % 39.0 - 51.0 % [facility] Hemoglobin (Bld) [Mass/Vol] 13.2 g/dL 13.0 - 17.0 g/dL [facility] Immature granulocytes (Bld) [#/Vol] 0.09 10*3/uL <0.10 k/uL [facility] Immature granulocytes/100 WBC (Bld) 0.9 % [facility] Lymphocytes (Bld) [#/Vol] 0.15 10*3/uL Low 1.00 - 4.00 k/uL [facility] Lymphocytes/100 WBC (Bld) 1.6 % [facility] MCH (RBC) [Entitic mass] 29.8 pg 26.0 - 34.0 pg [facility] MCHC (RBC) [Mass/Vol] 32.7 g/dL 30.5 - 36.0 g/dL [facility] MCV (RBC) [Entitic vol] 91.2 fL 80.0 - 100.0 fL [facility] Monocytes (Bld) [#/Vol] 1.13 10*3/uL High <0.87 k/uL [facility] Monocytes/100 WBC (Bld) 11.9 % [facility] Neutrophils (Bld) [#/Vol] 7.70 10*3/uL High 1.45 - 7.50 k/uL [facility] Neutrophils/100 WBC (Bld) 80.8 % [facility] Nucleated RBC (Bld) [#/Vol] <0.01 k/uL [facility] Nucleated RBC/100 WBC (Bld) [Ratio] 0.0 /100 WBC [facility] Platelet mean volume (Bld) [Entitic vol] 9.5 fL 9.0 - 12.7 fL [facility] Platelets (Bld) [#/Vol] 217 10*3/uL 150 - 400 k/uL [facility] RBC (Bld) [#/Vol] 4.43 10*6/uL 4.20 - 6.00 m/uL [facility] WBC (Bld) [#/Vol] 9.53 10*3/uL 3.70 - 11.00 k/uL [facility] URIC ACID BLOODon 06-19-2023 Urate [Mass/Vol] 4.9 mg/dL 4.0 - 8.1 mg/dL [facility] CBC W Auto Differential pane l (Bld)on 06-05-2023 Basophils (Bld) [#/Vol] 0.04 10*3/uL <0.11 k/uL [facility] Basophils/100 WBC (Bld) 0.3 % [facility] Differential cell count method Nom (Bld) Auto [facility] Eosinophils (Bld) [#/Vol] <0.46 k/uL [facility] Eosinophils/100 WBC (Bld) 0.0 % [facility] Erythrocyte distribution width (RBC) [Ratio] 14.4 % 11.5 - 15.0 % [facility] Hematocrit (Bld) [Volume fraction] 37.1 % Low 39.0 - 51.0 % [facility] Hemoglobin (Bld) [Mass/Vol] 11.8 g/dL Low 13.0 - 17.0 g/dL [facility] Immature granulocytes (Bld) [#/Vol] 0.12 10*3/uL High <0.10 k/uL [facility] Immature granulocytes/100 WBC (Bld) 0.9 % [facility] Lymphocytes (Bld) [#/Vol] 0.56 10*3/uL Low 1.00 - 4.00 k/uL [facility] Lymphocytes/100 WBC (Bld) 4.0 % [facility] MCH (RBC) [Entitic mass] 28.4 pg 26.0 - 34.0 pg [facility] MCHC (RBC) [Mass/Vol] 31.8 g/dL 30.5 - 36.0 g/dL [facility] MCV (RBC) [Entitic vol] 89.4 fL 80.0 - 100.0 fL [facility] Monocytes (Bld) [#/Vol] 0.65 10*3/uL <0.87 k/uL [facility] Monocytes/100 WBC (Bld) 4.6 % [facility] Neutrophils (Bld) [#/Vol] 12.66 10*3/uL High 1.45 - 7.50 k/uL [facility] Neutrophils/100 WBC (Bld) 90.2 % [facility] Nucleated RBC (Bld) [#/Vol] <0.01 k/uL [facility] Nucleated RBC/100 WBC (Bld) [Ratio] 0.0 /100 WBC [facility] Platelet mean volume (Bld) [Entitic vol] 10.1 fL 9.0 - 12.7 fL [facility] Platelets (Bld) [#/Vol] 334 10*3/uL 150 - 400 k/uL [facility] RBC (Bld) [#/Vol] 4.15 10*6/uL Low 4.20 - 6.00 m/uL [facility] WBC (Bld) [#/Vol] 14.03 10*3/uL High 3.70 - 11.00 k/uL [facility] Comprehensive metabolic 2000 panelon 06-05-2023 Albumin [Mass/Vol] 3.7 g/dL Low 3.9 - 4.9 g/dL [facility] ALP [Catalytic activity/Vol] 235 U/L High 38 - 113 U/L [facility] ALT [Catalytic activity/Vol] 26 U/L 10 - 54 U/L [facility] Anion gap [Moles/Vol] 10 mmol/L 9 - 18 mmol/L [facility] AST [Catalytic activity/Vol] 27 U/L 14 - 40 U/L [facility] Bilirubin [Mass/Vol] 0.2 mg/dL 0.2 - 1 .3 mg[facility] Calcium [Mass/Vol] 9.4 mg/dL 8.5 - 10. 2 mg/dL [facility] Chloride [Moles/Vol] 102 mmol/L 97 - 10 5 mmol/L [facility] CO2 [Moles/Vol] 25 mmol/L 22 - 30 mmol/L [facility] Creatinine [Mass/Vol] 0.96 mg/dL 0.73 - 1.22 mg/dL [facility] Estimated Glomerular Filtration Rate 87 mL/min/1.73m >=60 mL/min/1.7 3m [facility] Glucose [Mass/Vol] 120 mg/dL High 74 - 99 mg/dL [facility] Potassium [Moles/Vol] 4.3 mmol/L 3.7 - 5.1 mmol/L [facility] Protein [Mass/Vol] 7.7 g/dL 6.3 - 8.0 g/dL [facility] Sodium [Moles/Vol] 137 mmol/L 136 - 144 mmol/L [facility] Urea nitrogen [Mass/Vol] 26 mg/dL High 9 - 24 mg/dL [facility] Laboratory - Chemistry and C hemistry - challengeon 06-05-2023 Urate [Mass/Vol] 8.6 mg/dL High 4.0 - 8.1 mg/dL [facility] ESR Westergren method (Bld) [Velocity]on 05-14-2023 ESR (Bld) [Velocity] 40 mm/h High 0 - 15 mm/hr [facility] CBC W Auto Differential pane l (Bld)on 05-13-2023 Basophils (Bld) [#/Vol] 0.08 10*3/uL <0.11 k/uL [facility] Basophils/100 WBC (Bld) 0.8 % [facility] Differential cell count method Nom (Bld) Auto [facility] Eosinophils (Bld) [#/Vol] 0.27 10*3/uL <0.46 k/uL [facility] Eosinophils/100 WBC (Bld) 2.8 % [facility] Erythrocyte distribution width (RBC) [Ratio] 14.1 % 11.5 - 15.0 % [facility] Hematocrit (Bld) [Volume fraction] 42.3 % 39.0 - 51.0 % [facility] Hemoglobin (Bld) [Mass/Vol] 13.4 g/dL 13.0 - 17.0 g/dL [facility] Immature granulocytes (Bld) [#/Vol] 0.05 10*3/uL <0.10 k/uL [facility] Immature granulocytes/100 WBC (Bld) 0.5 % [facility] Lymphocytes (Bld) [#/Vol] 0.69 10*3/uL Low 1.00 - 4.00 k/uL [facility] Lymphocytes/100 WBC (Bld) 7.1 % [facility] MCH (RBC) [Entitic mass] 29.1 pg 26.0 - 34.0 pg [facility] MCHC (RBC) [Mass/Vol] 31.7 g/dL 30.5 - 36.0 g/dL [facility] MCV (RBC) [Entitic vol] 92.0 fL 80.0 - 100.0 fL [facility] Monocytes (Bld) [#/Vol] 1.11 10*3/uL High <0.87 k/uL [facility] Monocytes/100 WBC (Bld) 11.5 % [facility] Neutrophils (Bld) [#/Vol] 7.47 10*3/uL 1.45 - 7.50 k/uL [facility] Neutrophils/100 WBC (Bld) 77.3 % [facility] Nucleated RBC (Bld) [#/Vol] <0.01 k/uL [facility] Nucleated RBC/100 WBC (Bld) [Ratio] 0.0 /100 WBC [facility] Platelet mean volume (Bld) [Entitic vol] 9.7 fL 9.0 - 12.7 fL [facility] Platelets (Bld) [#/Vol] 306 10*3/uL 150 - 400 k/uL [facility] RBC (Bld) [#/Vol] 4.60 10*6/uL 4.20 - 6.00 m/uL [facility] WBC (Bld) [#/Vol] 9.67 10*3/uL 3.70 - 11.00 k/uL [facility] Comprehensive metabolic 2000 panelon 05-13-2023 Albumin [Mass/Vol] 3.9 g/dL 3.9 - 4.9 g/dL [facility] ALP [Catalytic activity/Vol] 244 U/L High 38 - 113 U/L [facility] ALT [Catalytic activity/Vol] 19 U/L 10 - 54 U/L [facility] Anion gap [Moles/Vol] 12 mmol/L 9 - 18 [facility] [Catalytic activity/Vol] 22 U/L 14 - 40 U/L [facility] Bilirubin [Mass/Vol] 0.4 mg/dL 0.2 - 1 .3 mg/dL [facility] Calcium [Mass/Vol] 9.5 mg/dL 8.5 - 10. 2 mg/dL [facility] Chloride [Moles/Vol] 103 mmol/L 97 - 10 5 mmol/L [facility] CO2 [Moles/Vol] 24 mmol/L 22 - 30 mmol/L [facility] Creatinine [Mass/Vol] 0.89 mg/dL 0.73 - 1.22 mg/dL [facility] Estimated Glomerular Filtration Rate 95 mL/min/1.73m >=60 mL/min/1.7 3m [facility] Glucose [Mass/Vol] 96 mg/dL 74 - 99 mg/dL [facility] Potassium [Moles/Vol] 4.4 mmol/L 3.7 - 5.1 mmol/L [facility] Protein [Mass/Vol] 7.9 g/dL 6.3 - 8.0 g/dL [facility] Sodium [Moles/Vol] 139 mmol/L 136 - 144 mmol/L [facility] Urea nitrogen [Mass/Vol] 19 mg/dL 9 - 24 mg/dL [facility] LD LACTATE DEHYDROon 023 LDH [Catalytic activity/Vol] 420 U/L High 135 - 225 U/L [facility] CBC with Auto Differentialon 04-02-2023 Basophils (Bld) [#/Vol] 0.08 10*3/uL [facility] Basophils/100 WBC (Bld) 1 % 0 - 2 % [facility] Eosinophils (Bld) [#/Vol] 0.23 10*3/uL [facility] Eosinophils/100 WBC (Bld) 2 % 1 - 4 % [facility] Erythrocyte distribution width (RBC) [Ratio] 13.5 % 11.8 - 14.4 % [facility] Hematocrit (Bld) [Volume fraction] 42.8 % 40.7 - 50.3 % [facility] Hemoglobin (Bld) [Mass/Vol] 14.3 g/dL 13.0 - 17.0 g/dL [facility] Immature granulocytes (Bld) [#/Vol] 0.04 10*3/uL [facility] Immature granulocytes/100 WBC (Bld) 0 % 0 [facility] Interpretation and review of laboratory results Abnormal [facility] Lymphocytes/100 WBC (Bld) 6 % Low 24 - 43 % [facility] Lymphocytes/100 WBC (Bld) 0.65 % Low [facility] MCH (RBC) [Entitic mass] 30.6 pg 25.2 - 33.5 pg [facility] MCHC (RBC) [Mass/Vol] 33.4 g/dL 28.4 - 34.8 g/dL [facility] MCV (RBC) [Entitic vol] 91.5 fL 82.6 - 102.9 fL [facility] Monocytes/100 WBC (Bld) 12 % 3 - 12 % [facility] Monocytes/100 WBC (Bld) 1.32 % High [facility] Neutrophils/100 WBC (Bld) 79 % High 36 - 65 % [facility] NRBC Automated 0.0 0.0 per 100 WBC [facility] Platelet mean volume (Bld) [Entitic vol] 10.2 fL 8.1 - 13.5 fL [facility] Platelets (Bld) [#/Vol] 195 10*3/uL [facility] RBC (Bld) [#/Vol] 4.68 10*6/uL 4.21 - 5.77 m/uL [facility] Segmented neutrophils/100 WBC (Bld) 8.84 % High [facility] WBC other (Bld) [#/Vol] 11.2 [facility] CBC with Diffon 04-02-2023 Abs. Basophil 0.08 k/uL Normal 0.00-0.20 [facility] Comment on above: Performed By: #### C P, CDP #### [facility] [address] [place] [address] Anthropological Linguist: Rasta Mohr MD Abs.Imm.Granulocyte 0.04 k/uL Normal 0.00-0.30 [facility] Comment on above: Performed By: #### C P, CDP #### [facility] [address] [place] [address] Anthropological Linguist: Rasta Mohr MD Abs.Neutrophil (Seg) 8.84 k/uL High 1.50-8.10 [facility] Comment on above: Performed By: #### C P, CDP #### [address] [place], [place] [address] Anthropological Linguist: Rasta Mohr MD Basophils/100 WBC (Bld) 1 % Normal 0-2 [facility] Comment on above: Performed By: #### C P, CDP #### [address] [place], [place] [address] Anthropological Linguist: Rasta Mohr MD Eosinophils (Bld) [#/Vol] 0.23 10*3/uL Normal 0.00-0.44 [facility] Comment on above: Performed By: #### C P, CDP #### [address] [place], [facility] Anthropological Linguist: Rasta Mohr MD Eosinophils/100 WBC (Bld) 2 % Normal 1-4 [facility] Comment on above: Performed By: #### C P, CDP #### [address] [place], [place] [address] Anthropological Linguist: Rasta Mohr MD Erythrocyte distribution width (RBC) [Ratio] 13.5 % Normal 11.8-14.4 [facility] Comment on above: Performed By: #### C P, CDP #### [address] [place], [place] [address] Anthropological Linguist: Rasta Mohr MD Hematocrit (Bld) [Volume fraction] 42.8 % Normal 40.7-50.3 [facility] Comment on above: Performed By: #### C P, CDP #### [address] [place], [facility]83 Anthropological Linguist: Rasta Mohr MD Hemoglobin (Bld) [Mass/Vol] 14.3 g/dL Normal 13.0-17.0 [facility] Comment on above: Performed By: #### C P, CDP #### [facility] [address] [place], [place] [id number] Anthropological Linguist: Rasta Mohr MD Immature granulocytes/100 WBC (Bld) 0 % Normal 0 [facility] Comment on above: Performed By: #### C P, CDP #### [facility] [address] [place], [facility]83 Anthropological Linguist: Rasta Mohr MD Lymphocytes (Bld) [#/Vol] 0.65 10*3/uL Low 1.10-3.70 [facility] Comment on above: Performed By: #### C P, CDP #### [address] [place], [facility]83 Anthropological Linguist: Rasta Mohr MD Lymphocytes/100 WBC (Bld) 6 % Low 24-43 [facility] Comment on above: Performed By: #### C P, CDP #### [facility] [address] [place] [address] [place], [facility]83 Anthropological Linguist: Rasta Mohr MD MCH (RBC) [Entitic mass] 30.6 pg Normal 25.2-33.5 [facility] Comment on above: Performed By: #### C P, CDP #### [address] [place], [facility]83 Anthropological Linguist: Rasta Mohr MD MCHC (RBC) [Mass/Vol] 33.4 g/dL Normal 28.4-34.8 [facility] Comment on above: Performed By: #### C P, CDP #### [address] [place], [facility]83 Anthropological Linguist: Rasta Mohr MD MCV (RBC) [Entitic vol] 91.5 fL Normal 82.6-102.9 [facility] Comment on above: Performed By: #### C P, CDP #### [facility] [address] [place] [address] [place], [place] [id number] Anthropological Linguist: Rasta Mohr MD Monocytes (Bld) [#/Vol] 1.32 10*3/uL High 0.10-1.20 [facility] Comment on above: Performed By: #### C P, CDP #### [facility] [address] [place], [place] [id number] Anthropological Linguist: Rasta Mohr MD Monocytes/100 WBC (Bld) 12 % Normal 3-12 [facility] Comment on above: Performed By: #### C P, CDP #### [address] [place], [place] [address] Anthropological Linguist: Rasta Mohr MD Neutrophil (Seg) 79 % High 36-65 [facility] Comment on above: Performed By: #### C P, CDP #### [address] [place], [facility]83 Anthropological Linguist: Rasta Mohr MD NRBC Automated 0.0 per 100 WBC Normal 0.0 [facility] Comment on above: Performed By: #### C P, CDP #### [address] [place], [facility]83 Anthropological Linguist: Rasta Mohr MD Platelet mean volume (Bld) [Entitic vol] 10.2 fL Normal 8.1-13.5 [facility] Comment on above: Performed By: #### C P, CDP #### [address] [place], [facility]83 Anthropological Linguist: Rasta Mohr MD Platelets (Bld) [#/Vol] 195 10*3/uL Normal 138-453 [facility] Comment on above: Performed By: #### C P, CDP #### [address] [place], [place] [id number] Anthropological Linguist: Rasta Mohr MD RBC (Bld) [#/Vol] 4.68 10*6/uL Normal 4.21-5.77 [facility] Comment on above: Performed By: #### C P, CDP #### [facility] [address] [place] [address] Anthropological Linguist: Rasta Mohr MD WBC (Bld) [#/Vol] 11.2 10*3/uL Normal 3.5-11.3 [facility] Comment on above: Performed By: #### C P, CDP #### [facility] [address] [place] [address] Anthropological Linguist: Rasta Mohr MD Comp Metabolic Profon 2022 Albumin [Mass/Vol] 3.9 g/dL Normal 3.5-5.2 [facility] Comment on above: Performed By: #### C P, CDP #### [address] [place], [place] [id number] Anthropological Linguist: Rasta Mohr MD Albumin/Glob Ratio 0.9 Low 1.0-2.5 [facility] Comment on above: Performed By: #### C P, CDP #### [address] [place] [address] Anthropological Linguist: Rasta Mohr MD Alkaline Phos 201 U/L High 40-129 [facility] Comment on above: Performed By: #### C P, CDP #### [address] [place], [place] [id number] Anthropological Linguist: Rasta Mohr MD ALT [Catalytic activity/Vol] 15 U/L Normal 5-41 [facility] Comment on above: Performed By: #### C P, CDP #### [address] [place] [address] Anthropological Linguist: Rasta Mohr MD Anion gap [Moles/Vol] 11 mmol/L Normal 9-17 [facility] Comment on above: Performed By: #### C P, CDP #### [facility] [address] [place], [place] [id number] Anthropological Linguist: Rasta Mohr MD AST [Catalytic activity/Vol] 19 U/L Normal <40 [facility] Comment on above: Performed By: #### C P, CDP #### [facility] [address] [place], [place] [id number] Anthropological Linguist: Rasta Mohr MD Bilirubin [Mass/Vol] 0.4 mg/dL Normal 0.3-1.2 [facility] Comment on above: Performed By: #### C P, CDP #### [facility] [address] [place], [place] [id number] Anthropological Linguist: Rasta Mohr MD BUN/CRE Ratio 20 Normal 9-20 [facility] Comment on above: Performed By: #### C P, CDP #### [facility] [address] [place], [place] [id number] Anthropological Linguist: Rasta Mohr MD Calcium [Mass/Vol] 9.4 mg/dL Normal 8.6-10.4 [facility] Comment on above: Performed By: #### C P, CDP #### [address] [place], [place] [id number] Anthropological Linguist: Rasta Mohr MD Chloride [Moles/Vol] 102 mmol/L Normal 98-107 [facility] Comment on above: Performed By: #### C P, CDP #### [facility] [address] [place], [place] [id number] Anthropological Linguist: Rasta Mohr MD CO2 [Moles/Vol] 25 mmol/L Normal 20-31 [facility] Comment on above: Performed By: #### C P, CDP #### [facility] [address] [place], [place] [id number] Anthropological Linguist: Rasta Mohr MD Creatinine [Mass/Vol] 0.84 mg/dL Normal 0.70-1.20 [facility] Comment on above: Performed By: #### C P, CDP #### [address] [place] [address] Anthropological Linguist: Rasta Mohr MD GFR/1.73 sq M.predicted among non-blacks MDRD (S/P/Bld) [Vol rate/Area] mL/min/{1.73_m2} Normal >60 [facility] Comment on above: Result Comment: These [...] Performed By: #### C P, CDP #### [facility] [address] [place] [address] [place] [address] Anthropological Linguist: Rasta Mohr MD Glucose [Mass/Vol] 101 mg/dL High 70-99 [facility] Comment on above: Performed By: #### C P, CDP #### [address] [place] [address] Anthropological Linguist: Rasta Mohr MD Potassium [Moles/Vol] 4.3 mmol/L Normal 3.7-5.3 [facility] Comment on above: Performed By: #### C P, CDP #### [address] [place] [address] Anthropological Linguist: Rasta Mohr MD Protein [Mass/Vol] 8.1 g/dL Normal 6.4-8.3 [facility] Comment on above: Performed By: #### C P, CDP #### [address] [place] [address] Anthropological Linguist: Rasta Mohr MD Sodium [Moles/Vol] 138 mmol/L Normal 135-144 [facility] Comment on above: Performed By: #### C P, CDP #### [facility] [address] [place] [address] Anthropological Linguist: Rasta Mohr MD Urea nitrogen [Mass/Vol] 17 mg/dL Normal 8-23 [facility] Comment on above: Performed By: #### C P, CDP #### [facility] [address] [place] [address] Anthropological Linguist: Rasta Mohr MD Comprehensive Metabolic Pane [facility] 04-02-2023 Albumin [Mass/Vol] 3.9 g/dL 3.5 - 5.2 g/dL [facility] Albumin/Globulin [Mass ratio] 0.9 {ratio} Low 1.0 - 2.5 [facility] ALP [Catalytic activity/Vol] 201 U/L High 40 - 129 U/L [facility] ALT [Catalytic activity/Vol] 15 U/L 5 - 41 U/L [facility] Anion gap [Moles/Vol] 11 mmol/L 9 - 17 mmol/L [facility] AST [Catalytic activity/Vol] 19 U/L NINF - 40 U/L [facility] Bilirubin [Mass/Vol] 0.4 mg/dL 0.3 - 1 .2 mg/dL [facility] Calcium [Mass/Vol] 9.4 mg/dL 8.6 - 10. 4 mg/dL [facility] Chloride [Moles/Vol] 102 mmol/L 98 - 10 7 mmol/L [facility] CO2 [Moles/Vol] 25 mmol/L 20 - 31 mmol/L [facility] Creatinine [Mass/Vol] 0.84 mg/dL 0.70 - 1.20 mg/dL [facility] GFR/1.73 sq M.predicted MDRD (S/P/Bld) [Vol rate/Area] - PINF [facility] Comment on above: These results [...] 101 mg/dL High 70 - 99 mg/dL [facility] Interpretation and review of laboratory results Abnormal [facility] Potassium [Moles/Vol] 4.3 mmol/L 3.7 - 5.3 mmol/L [facility] Protein [Mass/Vol] 8.1 g/dL 6.4 - 8.3 g/dL [facility] Sodium [Moles/Vol] 138 mmol/L 135 - 144 mmol/L [facility] Urea nitrogen [Mass/Vol] 17 mg/dL 8 - 23 mg/dL [facility] Urea nitrogen/Creatinine [Mass ratio] 20 mg/mg 9 - 20 [facility] TSHon 04-02-2023 TSH [Mass/Vol] 0.52 [facility] Thyroid Stim. Horm.on 2022 Thyroid Stim. Horm. 0.52 uIU/mL Normal 0.30-5.00 [facility] Comment on above: Performed By: #### T SH #### [facility] [address] [place] [address] Anthropological Linguist: Rasta Mohr MD CBC Auto DifferentialOrdered By: Maritza Mendoza on 04-05-2021 Absolute Eos # 0.24 [facility] [employer] Phone: Absolute Immature Granulocyte 0.03 [facility] Phone: [facility] Lymph # 1.16 [facility] Phone: Absolute [place] # 0.79 [facility] Phone: Basophils (Bld) [#/Vol] 0.05 10*3/uL [facility] Phone: Basophils/100 WBC (Bld) 1 % 0 - 2 % [facility] Phone: Differential Type NOT REPORTED [facility] Phone: Eosinophils/100 WBC (Bld) 4 % 1 - 4 % [facility] Phone: Hematocrit (Bld) [Volume fraction] 47.7 % 40.7 - 50.3 % [facility] Phone: Hemoglobin.gastrointe stinal spec 1 Ql (Stl) 15.6 g/dL 13.0 - 17.0 g/dL [facility] Phone: [phone] Immature granulocytes/100 WBC (Bld) 1 % High 0 [facility] Phone: Interpretation and review of laboratory results Abnormal [facility] Phone: Lymphocytes/100 WBC (Bld) 18 % Low 24 - 43 % [facility] Phone: MCH (RBC) [Entitic mass] 31.0 pg 25.2 - 33.5 pg [facility] Phone: MCHC (RBC) [Mass/Vol] 32.7 g/dL 28.4 - 34.8 g/dL [facility] Phone: MCV (RBC) [Entitic vol] 94.6 fL 82.6 - 102.9 fL [facility] Phone: Monocytes/100 WBC (Bld) 12 % 3 - 12 % [facility] Phone: NRBC Automated 0.0 0.0 per 100 WBC [facility] Phone: Platelet distribution width (Bld) [Ratio] 13.2 % 11.8 - 14.4 % [facility] Phone: Platelet Estimate NOT REPORTED [facility] Phone: Platelet mean volume (Bld) [Entitic vol] 10.1 fL 8.1 - 13.5 fL [facility] Phone: Platelets (Bld) [#/Vol] 193 10*3/uL [facility] Phone: RBC (Bld) [#/Vol] 5.04 10*6/uL 4.21 - 5.77 m/uL [facility] Phone: RBC (Bld) [#/Vol] NOT REPORTED [facility] Phone: Segmented neutrophils/100 WBC (Bld) 64 % 36 - 65 % [facility] Phone: Segs Absolute 4.19 [facility] Phone: WBC (Bld) [#/Vol] 6.5 10*3/uL [facility] Phone: WBC (Bld) [#/Vol] NOT REPORTED [facility] Phone: [facility] Phone: Comprehensive Metabolic Pane lOrdered By: Maritza Mendoza on 04-05-2021 Albumin [Mass/Vol] 4.2 g/dL 3.5 - 5.2 g/dL [facility] Phone: Albumin/Globulin [Mass ratio] 1.0 {ratio} [facility] Phone: ALP (Bld) [Catalytic activity/Vol] 187 U/L High 40 - 129 U/L [facility] Phone: ALT [Catalytic activity/Vol] 23 U/L 5 - 41 U/L [facility] Phone: Anion gap [Moles/Vol] 10 mmol/L 9 - 17 mmol/L [facility] Phone: AST [Catalytic activity/Vol] 21 U/L <40 [facility] Phone: Bilirubin [Mass/Vol] 0.34 mg/dL 0.3 - 1 .2 mg/dL [facility] Phone: Calcium [Mass/Vol] 9.5 mg/dL 8.6 - 10. 4 mg/dL [facility] Phone: Chloride [Moles/Vol] 102 mmol/L 98 - 10 7 mmol/L [facility] Phone: CO2 [Moles/Vol] 26 mmol/L 20 - 31 mmol/L [facility] Phone: Creatinine [Mass/Vol] 0.82 mg/dL 0.70 - 1.20 mg/dL [facility] Phone: Free PSA/Total PSA [Mass fraction] 8.3 g/dL 6.4 - 8.3 g/dL [facility] Phone: GFR >60 >60 mL/min [employer] Phone: GFR Non- >60 >60 mL/min [facility] Phone: Glucose [Mass/Vol] 97 mg/dL 70 - 99 mg/dL [facility] Phone: Interpretation and review of laboratory results Abnormal [facility] Phone: Potassium [Moles/Vol] 4.2 mmol/L 3.7 - 5.3 mmol/L [facility] Phone: Sodium [Moles/Vol] 138 mmol/L 135 - 144 mmol/L [facility] Phone: Urea nitrogen (BldV) [Mass/Vol] 16 mg/dL 8 - 23 mg/dL [facility] Phone: Urea nitrogen/Creatinine (Bld) [Mass ratio] 20 [facility] Phone: Laboratory - Chemistry and C hemistry - challengeOrdered By: Maritza Mendoza on 04-05-2021 GFR/1.73 sq M.predicted MDRD (S/P/Bld) [Vol rate/Area] [facility] Phone: Comment on above: Average GFR for 60-6 9 years old: 85 mL/min/1.73sq m Chronic Kidney Disease: <60 mL/min/1.73sq m Kidney failure: <15 mL/min/1.73sq m eGFR calculated using average adult body mass. Additional eGFR calculator available at: http://www.AlchemyAPI/multiple_crcl_2012.htm Stage 1: Some kidney damage normal GFR Stage 2: Mild kidney damage GFR 60-89 Stage 3: Moderate kidney damage GFR 30-59 Stage 4: Severe kidney damage GFR 15-29 Stage 5: Severe kidney damage GFR <15 ESRD - chronic treatment by dialysis or transplant Lactate DehydrogenaseOrdered By: Maritza Mendoza on 04-05-2021 LD 163 U/L 135 - 225 U/L [facility] Phone: No Panel InformationOrdered By: Maritza Mendoza on 04-05-2021 [facility] Phone: TSH without ReflexOrdered By : Maritza Mendoza on 04-05-2021 Interpretation and review of laboratory results Abnormal [facility] Phone: TSH Qn 0.19 m[IU]/L Low [facility] Phone: [facility] Phone: CBC Auto Differentialon 04-03 Basophils (Bld) [#/Vol] 0.07 10*3/uL [facility] [place] Basophils/100 WBC (Bld) 1 % 0 - 2 % [facility] [employer] [place], [place] Differential Type NOT REPORTED [facility] [employer] [place] Eosinophils (Bld) [#/Vol] 0.24 10*3/uL [place] Eosinophils/100 WBC (Bld) 4 % 1 - 4 % [employer] [place], [place] Erythrocyte distribution width (RBC) [Ratio] 13.5 % 11.8 - 14.4 % [place] Hematocrit (Bld) [Volume fraction] 48.7 % 40.7 - 50.3 % [place] Hemoglobin (Bld) [Mass/Vol] 15.9 g/dL 13 - 17 g/dL [place] Immature granulocytes (Bld) [#/Vol] 10*3/uL [place] Immature granulocytes (Bld) [#/Vol] 0 % 0 [place] Interpretation and review of laboratory results Abnormal [place] Lymphocytes (Bld) [#/Vol] 1.28 10*3/uL [place] Lymphocytes/100 WBC (Bld) 19 % Low 24 - 43 % [place] MCH (RBC) [Entitic mass] 30.7 pg 25.2 - 33.5 pg [place] MCHC (RBC) [Mass/Vol] 32.6 g/dL 28.4 - 34.8 g/dL [place] MCV (RBC) [Entitic vol] 94.0 fL 82.6 - 102.9 fL [place] Monocytes (Bld) [#/Vol] 0.98 10*3/uL [place] Monocytes/100 WBC (Bld) 15 % High 3 - 12 % [place] Platelet mean volume (Bld) [Entitic vol] 10.3 fL 8.1 - 13.5 fL [place] Platelets (Bld) [#/Vol] NOT REPORTED [place] Platelets (Bld) [#/Vol] 209 10*3/uL [place] RBC (Bld) [#/Vol] 5.18 10*6/uL 4.21 - 5.77 m/uL [place] RBC morphology finding Nom (Bld) NOT REPORTED [place] Segmented neutrophils/100 WBC (Bld) 61 % 36 - 65 % [place] Segs Absolute 4.13 [place] WBC (Bld) [#/Vol] 0.0 10*3/uL 0.0 per 100 WBC [place] WBC (Bld) [#/Vol] 6.7 10*3/uL [place] WBC Morphology NOT REPORTED [place] Comprehensive Metabolic Pane cheng 04-17-2020 Albumin [Mass/Vol] 4.2 g/dL 3.5 - 5.2 g/dL [place] Albumin/Globulin [Mass ratio] 1.1 {ratio} [place] ALP [Catalytic activity/Vol] 161 U/L High 40 - 129 U/L [place] ALT [Catalytic activity/Vol] 24 U/L 5 - 41 U/L [place] Anion gap [Moles/Vol] 13 mmol/L 9 - 17 mmol/L [place] AST [Catalytic activity/Vol] 19 U/L <40 [place] Bilirubin Ql (U) 0.27 mg/dL Low 0.3 - 1.2 mg/dL [place] Bun/Cre Ratio 12 [place] Calcium [Mass/Vol] 9.4 mg/dL 8.6 - 10. 4 mg/dL [place] Chloride [Moles/Vol] 103 mmol/L 98 - 10 7 mmol/L [place] CO2 [Moles/Vol] 24 mmol/L 20 - 31 mmol/L [place] Creatinine [Mass/Vol] 0.81 mg/dL 0.7 - 1.2 mg/dL [place] GFR >60 >60 mL/min [place] GFR Non- >60 >60 mL/min [place] Glucose [Mass/Vol] 104 mg/dL High 70 - 99 mg/dL [place] Interpretation and review of laboratory results Abnormal [place] Potassium [Moles/Vol] 4.2 mmol/L 3.7 - 5.3 mmol/L [place] Protein [Mass/Vol] 8.0 g/dL 6.4 - 8.3 g/dL [place] Sodium [Moles/Vol] 140 mmol/L 135 - 144 mmol/L [place] Urea nitrogen [Mass/Vol] 10 mg/dL 8 - 23 mg/dL [place] Lactate Dehydrogenaseon 04-03 LD 181 U/L 135 - 225 U/L [place] Metabolic Panelon 04-17-2020 GFR/1.73 sq M predicted among non-blacks MDRD (S/P/Bld) [Vol rate/Area] [place] Comment on above: Stage 1: Some [...] body mass. Additional eGFR calculator available at: http://www.AlchemyAPI/multiple_crcl_2012.htm Vital Signs Date Time Vital Sign Value Performing Clinician Facility 07-19-2024 09:33-0400 Body mass index (BMI) [Ratio] 25.83 kg/m2 Michael Boykin MD Work Phone: [facility] 07-19-2024 09:33-0400 Body temperature 97.5 [degF] Michael Boykin MD Work Phone: [facility] 07-19-2024 09:33-0400 Body weight 83.7 kg Michael Boykin MD Work Phone: [facility] 07-19-2024 09:33-0400 Diastolic blood pressure 86 mm[Hg] Michael Boykin MD Work Phone: [facility] 07-19-2024 09:33-0400 Heart rate 79 /min Michael Boykin MD Work Phone: [facility] 07-19-2024 09:33-0400 Respiratory rate 16 /min Michael Boykin MD Work Phone: [facility] 07-19-2024 09:33-0400 SaO2% (BldA) [Mass fraction] 97 % Michael Boykin MD Work Phone: [facility] 07-19-2024 09:33-0400 Systolic blood pressure 135 mm[Hg] Michael Boykin MD Work Phone: [facility] 06-17-2024 15:17-0400 Body mass index (BMI) [Ratio] 25.74 kg/m2 Michael Boykin MD Work Phone: [facility] 06-17-2024 15:17-0400 Body temperature 97.11 [degF] Michael Boykin MD Work Phone: [facility] 06-17-2024 15:17-0400 Body weight 83.4 kg Michael Boykin MD Work Phone: [facility] 06-17-2024 15:17-0400 Diastolic blood pressure 80 mm[Hg] Michael Boykin MD Work Phone: [facility] 06-17-2024 15:17-0400 Heart rate 79 /min Michael Boykin MD Work Phone: [facility] 06-17-2024 15:17-0400 Respiratory rate 18 /min Michael Boykin MD Work Phone: [facility] 06-17-2024 15:17-0400 SaO2% (BldA) [Mass fraction] 100 % Michael Boykin MD Work Phone: [facility] 06-17-2024 15:17-0400 Systolic blood pressure 124 mm[Hg] Michael Boykin MD Work Phone: [facility] 06-08-2024 13:49-0400 Blood Pressure Location Chiquita RIVERA [facility] 06-08-2024 13:49-0400 Diastolic blood pressure 80 mm[Hg] Chiquita RIVERA [facility] 06-08-2024 13:49-0400 Heart rate 72 /min Chiquita RIVERA [facility] 06-08-2024 13:49-0400 Respiratory rate 16 /min Chiquita RIVERA [facility] [place] 06-08-2024 13:49-0400 Systolic blood pressure 122 mm[Hg] Chiquita RIVERA [facility] 05-13-2024 11:11-0400 Body mass index (BMI) [Ratio] 25.28 kg/m2 Niesha Galdamez MD Work Phone: [facility] 05-13-2024 11:11-0400 Body temperature 97.7 [degF] Niesha Galdamez MD Work Phone: [facility] 05-13-2024 11:11-0400 Body weight 81.9 kg Niesha Galdamez MD Work Phone: [facility] Comment on above: shoes on 05-13-2024 11:11-0400 Diastolic blood pressure 72 mm[Hg] Niesha Galdamez MD Work Phone: [facility] 05-13-2024 11:11-0400 Heart rate 72 /min Niesha Galdamez MD Work Phone: [facility] 05-13-2024 11:11-0400 Respiratory rate 18 /min Niesha Galdamez MD Work Phone: [facility] 05-13-2024 11:11-0400 SaO2% (BldA) [Mass fraction] 99 % Niesha Galdamez MD Work Phone: [facility] 05-13-2024 11:11-0400 Systolic blood pressure 135 mm[Hg] Niesha Galdamez MD Work Phone: [facility] 05-13-2024 09:04-0400 Body mass index (BMI) [Ratio] 24.92 kg/m2 Dylan Porter MD Work Phone: [facility] 05-13-2024 09:04-0400 Body temperature 97.7 [degF] Dylan Porter MD Work Phone: [facility] 05-13-2024 09:04-0400 Body weight 80.74 kg Dylan Porter MD Work Phone: [facility] 05-13-2024 09:04-0400 Diastolic blood pressure 81 mm[Hg] Dylan Porter MD Work Phone: [facility] 05-13-2024 09:04-0400 Heart rate 74 /min Dylan Porter MD Work Phone: [facility] 05-13-2024 09:04-0400 SaO2% (BldA) [Mass fraction] 99 % Dylan Porter MD Work Phone: [facility] 05-13-2024 09:04-0400 Systolic blood pressure 134 mm[Hg] Dylan Porter MD Work Phone: [facility] 04-23-2024 08:54-0400 Body mass index (BMI) [Ratio] 24.35 kg/m2 Nabila Chery APRN.OUTPATIENT INTERVIEWING CLERK Work Phone: [facility] 04-23-2024 08:54-0400 Body temperature 98.1 [degF] Nabila Chery APRN.OUTPATIENT INTERVIEWING CLERK Work Phone: [facility] 04-23-2024 08:54-0400 Body weight 78.9 kg Nabila Chery APRN.OUTPATIENT INTERVIEWING CLERK Work Phone: [facility] 04-23-2024 08:54-0400 Diastolic blood pressure 64 mm[Hg] Nabila Chery APRN.OUTPATIENT INTERVIEWING CLERK Work Phone: [facility] 04-23-2024 08:54-0400 Heart rate 72 /min Nabila Chery APRN.OUTPATIENT INTERVIEWING CLERK Work Phone: [facility] 04-23-2024 08:54-0400 Respiratory rate 19 /min Nabila Chery APRN.OUTPATIENT INTERVIEWING CLERK Work Phone: [facility] 04-23-2024 08:54-0400 SaO2% (BldA) [Mass fraction] 99 % Nabila Chery APRN.OUTPATIENT INTERVIEWING CLERK Work Phone: [facility] 04-23-2024 08:54-0400 Systolic blood pressure 108 mm[Hg] Nabila Chery APRN.OUTPATIENT INTERVIEWING CLERK Work Phone: [facility] 04-23-2024 07:40-0400 Body mass index (BMI) [Ratio] 24.41 kg/m2 Chair Ntu Work Phone: [facility] 04-23-2024 07:40-0400 Body temperature 97.7 [degF] Chair Ntu Work Phone: [facility] 04-23-2024 07:40-0400 Body weight 79.1 kg Chair Ntu Work Phone: [facility] 04-23-2024 07:40-0400 Diastolic blood pressure 64 mm[Hg] Chair Ntu Work Phone: [facility] 04-23-2024 07:40-0400 Heart rate 72 /min Chair Ntu Work Phone: [facility] 04-23-2024 07:40-0400 Respiratory rate 18 /min Chair Ntu Work Phone: [facility] 04-23-2024 07:40-0400 SaO2% (BldA) [Mass fraction] 100 % Chair Ntu Work Phone: [facility] 04-23-2024 07:40-0400 Systolic blood pressure 113 mm[Hg] Chair Ntu Work Phone: [facility] 04-03-2024 07:27-0400 Body temperature 98.1 [degF] Chair 2 Work Phone: [facility] 04-03-2024 07:27-0400 Diastolic blood pressure 62 mm[Hg] Chair 2 Work Phone: [facility] 04-03-2024 07:27-0400 Heart rate 80 /min Chair 2 Work Phone: [facility] 04-03-2024 07:27-0400 Respiratory rate 18 /min Chair 2 Work Phone: [facility] 04-03-2024 07:27-0400 Systolic blood pressure 109 mm[Hg] Chair 2 Work Phone: [facility] 04-02-2024 10:23-0400 Body temperature 98.2 [degF] Chair 2 Work Phone: [facility] 04-02-2024 10:23-0400 Diastolic blood pressure 69 mm[Hg] Chair 2 Work Phone: [facility] 04-02-2024 10:23-0400 Heart rate 73 /min Chair 2 Work Phone: [facility] 04-02-2024 10:23-0400 Respiratory rate 18 /min Chair 2 Work Phone: [facility] 04-02-2024 10:23-0400 Systolic blood pressure 113 mm[Hg] Chair 2 Work Phone: [facility] 04-01-2024 10:01-0400 Body height 180.2 cm Chair 2 Work Phone: [facility] Comment on above: SHOES ON 04-01-2024 10:01-0400 Body mass index (BMI) [Ratio] 25.87 kg/m2 Chair 2 Work Phone: [facility] 04-01-2024 10:01-0400 Body weight 84 kg Chair 2 Work Phone: [facility] 04-01-2024 09:19-0400 Body height 176.6 cm Niesha Galdamez MD Work Phone: [facility] Comment on above: shoes off 04-01-2024 09:19-0400 Body mass index (BMI) [Ratio] 26.74 kg/m2 Niesha Galdamez MD Work Phone: [facility] 04-01-2024 09:19-0400 Body temperature 97.59 [degF] Niesha Galdamez MD Work Phone: [facility] 04-01-2024 09:19-0400 Body weight 83.4 kg Niesha Galdamez MD Work Phone: [facility] Comment on above: shoes off 04-01-2024 09:19-0400 Diastolic blood pressure 67 mm[Hg] Niesha Galdamez MD Work Phone: [facility] 04-01-2024 09:19-0400 Heart rate 73 /min Niesha Galdamez MD Work Phone: [facility] 04-01-2024 09:19-0400 Respiratory rate 18 /min Niesha Galdamez MD Work Phone: [facility] 04-01-2024 09:19-0400 SaO2% (BldA) [Mass fraction] 97 % Niesha Galdamez MD Work Phone: [facility] 04-01-2024 09:19-0400 Systolic blood pressure 126 mm[Hg] Niesha Galdamez MD Work Phone: [facility] 03-22-2024 15:58-0400 Body mass index (BMI) [Ratio] 25.9 kg/m2 JUANPABLO Varela MD Work Phone: [facility] 03-22-2024 15:58-0400 Body temperature 97.3 [degF] JUANPABLO Varela MD Work Phone: [facility] 03-22-2024 15:58-0400 Body weight 84 kg JUANPABLO Varela MD Work Phone: [facility] 03-22-2024 15:58-0400 Diastolic blood pressure 82 mm[Hg] JUANPABLO Varela MD Work Phone: [facility] 03-22-2024 15:58-0400 Heart rate 85 /min JUANPABLO Varela MD Work Phone: [facility] 03-22-2024 15:58-0400 Respiratory rate 18 /min JUANPABLO Varela MD Work Phone: [facility] 03-22-2024 15:58-0400 SaO2% (BldA) [Mass fraction] 98 % JUANPABLO Varela MD Work Phone: [facility] 03-22-2024 15:58-0400 Systolic blood pressure 145 mm[Hg] JUANPABLO Varela MD Work Phone: [facility] 03-16-2024 14:31-0400 Body mass index (BMI) [Ratio] 25.87 kg/m2 JUANPABLO Varela MD Work Phone: [facility] 03-16-2024 14:31-0400 Body temperature 98.29 [degF] JUANPABLO Varela MD Work Phone: [facility] 03-16-2024 14:31-0400 Body weight 83.9 kg JUANPABLO Varela MD Work Phone: [facility] 03-16-2024 14:31-0400 Diastolic blood pressure 83 mm[Hg] JUANPABLO Varela MD Work Phone: [facility] 03-16-2024 14:31-0400 Heart rate 91 /min JUANPABLO Varela MD Work Phone: [facility] 03-16-2024 14:31-0400 Respiratory rate 16 /min JUANPABLO Varela MD Work Phone: [facility] 03-16-2024 14:31-0400 SaO2% (BldA) [Mass fraction] 97 % JUANPABLO Varela MD Work Phone: [facility] 03-16-2024 14:31-0400 Systolic blood pressure 119 mm[Hg] JUANPABLO Varela MD Work Phone: [facility] 03-15-2024 07:41-0400 Body mass index (BMI) [Ratio] 26.49 kg/m2 JUANPABLO Varela MD Work Phone: [facility] 03-15-2024 07:41-0400 Body temperature 97.9 [degF] JUANPABLO Varela MD Work Phone: [facility] 03-15-2024 07:41-0400 Body weight 85.91 kg JUANPABLO Varela MD Work Phone: [facility] 03-15-2024 07:41-0400 Diastolic blood pressure 81 mm[Hg] JUANPABLO Varela MD Work Phone: [facility] 03-15-2024 07:41-0400 Heart rate 79 /min JUANPABLO Varela MD Work Phone: [facility] 03-15-2024 07:41-0400 Respiratory rate 18 /min JUANPABLO Varela MD Work Phone: [facility] 03-15-2024 07:41-0400 SaO2% (BldA) [Mass fraction] 95 % JUANPABLO Varela MD Work Phone: [facility] 03-15-2024 07:41-0400 Systolic blood pressure 116 mm[Hg] JUANPABLO Varela MD Work Phone: [facility] 03-09-2024 13:57-0400 Body temperature 98.2 [degF] [facility] Work Phone: [facility] 03-09-2024 13:57-0400 Diastolic blood pressure 80 mm[Hg] [facility] Work Phone: [facility] 03-09-2024 13:57-0400 Heart rate 81 /min [facility] Work Phone: [facility] 03-09-2024 13:57-0400 Respiratory rate 18 /min [facility] Work Phone: [facility] 03-09-2024 13:57-0400 Systolic blood pressure 134 mm[Hg] [facility] Work Phone: [facility] 03-09-2024 13:11-0400 SaO2% (BldA) [Mass fraction] 96 % [facility] Work Phone: [facility] Comment on above: RA 03-09-2024 09:15-0400 Body height 180.1 cm [facility] Work Phone: [facility] 03-09-2024 09:15-0400 Body mass index (BMI) [Ratio] 25.31 kg/m2 [facility] Work Phone: [facility] 03-09-2024 09:15-0400 Body weight 82.1 kg [facility] Work Phone: [facility] 03-08-2024 15:34-0400 Body height 177.2 cm Niesha Galdamez MD Work Phone: [facility] 03-08-2024 15:34-0400 Body mass index (BMI) [Ratio] 26.21 kg/m2 Niesha Galdamez MD Work Phone: [facility] 03-08-2024 15:34-0400 Body temperature 97.5 [degF] Niesha Galdamez MD Work Phone: [facility] 03-08-2024 15:34-0400 Body weight 82.3 kg Niesha Galdamez MD Work Phone: [facility] 03-08-2024 15:34-0400 Diastolic blood pressure 76 mm[Hg] Niesha Galdamez MD Work Phone: [facility] 03-08-2024 15:34-0400 Heart rate 91 /min Niesha Galdamez MD Work Phone: [facility] 03-08-2024 15:34-0400 Respiratory rate 20 /min Niesha Galdamez MD Work Phone: [facility] 03-08-2024 15:34-0400 SaO2% (BldA) [Mass fraction] 97 % Niesha Galdamez MD Work Phone: [facility] 03-08-2024 15:34-0400 Systolic blood pressure 130 mm[Hg] Niesha Galdamez MD Work Phone: [facility] 02-12-2024 10:55-0400 Body temperature 97.9 [degF] Niesha Galdamez MD Work Phone: [facility] 02-12-2024 10:55-0400 Body weight 84 kg Niesha Galdamez MD Work Phone: [facility] 02-12-2024 10:55-0400 Diastolic blood pressure 72 mm[Hg] Niesha Galdamez MD Work Phone: [facility] 02-12-2024 10:55-0400 Heart rate 75 /min Niesha Galdamez MD Work Phone: [facility] 02-12-2024 10:55-0400 Respiratory rate 18 /min Niesha Galdamez MD Work Phone: [facility] 02-12-2024 10:55-0400 SaO2% (BldA) [Mass fraction] 99 % Niesha Galdamez MD Work Phone: [facility] 02-12-2024 10:55-0400 Systolic blood pressure 133 mm[Hg] Niesha Galdamez MD Work Phone: [facility] 02-02-2024 15:44-0400 Body temperature 97.2 [degF] Michael Boykin MD Work Phone: [facility] 02-02-2024 15:44-0400 Body weight 83.2 kg Michael Boykin MD Work Phone: [facility] 02-02-2024 15:44-0400 Diastolic blood pressure 76 mm[Hg] Michael Boykin MD Work Phone: [facility] 02-02-2024 15:44-0400 Heart rate 81 /min Michael Boykin MD Work Phone: [facility] 02-02-2024 15:44-0400 Respiratory rate 18 /min Michael Boykin MD Work Phone: [facility] 02-02-2024 15:44-0400 SaO2% (BldA) [Mass fraction] 98 % Michael Boykin MD Work Phone: [facility] 02-02-2024 15:44-0400 Systolic blood pressure 135 mm[Hg] Michael Boykin MD Work Phone: [facility] 01-28-2024 09:55-0400 Body height 179.1 cm Dorcas Bolanos MD Work Phone: [facility] 01-28-2024 09:55-0400 Body mass index (BMI) [Ratio] 26.38 kg/m2 Dorcas Bolanos MD Work Phone: [facility] 01-28-2024 09:55-0400 Body temperature 97.9 [degF] Dorcas Bolanos MD Work Phone: [facility] 01-28-2024 09:55-0400 Body weight 84.6 kg Dorcas Bolanos MD Work Phone: [facility] 01-28-2024 09:55-0400 Diastolic blood pressure 71 mm[Hg] Dorcas Bolanos MD Work Phone: [facility] 01-28-2024 09:55-0400 Heart rate 91 /min Dorcas Bolanos MD Work Phone: [facility] 01-28-2024 09:55-0400 Respiratory rate 16 /min Dorcas Bolanos MD Work Phone: [facility] 01-28-2024 09:55-0400 SaO2% (BldA) [Mass fraction] 98 % Dorcas Bolanos MD Work Phone: [facility] 01-28-2024 09:55-0400 Systolic blood pressure 129 mm[Hg] Dorcas Bolanos MD Work Phone: [facility] 01-12-2024 14:05-0400 Body temperature 97 [degF] Michael Boykin MD Work Phone: [facility] 01-12-2024 14:05-0400 Body weight 83.9 kg Michael Boykin MD Work Phone: [facility] 01-12-2024 14:05-0400 Diastolic blood pressure 77 mm[Hg] Michael Boykin MD Work Phone: [facility] 01-12-2024 14:05-0400 Heart rate 100 /min Michael Boykin MD Work Phone: [facility] 01-12-2024 14:05-0400 Respiratory rate 18 /min Michael Boykin MD Work Phone: [facility] 01-12-2024 14:05-0400 SaO2% (BldA) [Mass fraction] 97 % Michael Boykin MD Work Phone: [facility] 01-12-2024 14:05-0400 Systolic blood pressure 140 mm[Hg] Michael Boykin MD Work Phone: [facility] 01-05-2024 12:35-0500 Body height 177.8 cm Niesha Galdamez MD Work Phone: [facility] 01-05-2024 12:35-0500 Body temperature 97.11 [degF] Niesha Galdamez MD Work Phone: [facility] 01-05-2024 12:35-0500 Body weight 83.7 kg Niesha Galdamez MD Work Phone: [facility] 01-05-2024 12:35-0500 Diastolic blood pressure 80 mm[Hg] Niesha Galdamez MD Work Phone: [facility] 01-05-2024 12:35-0500 Heart rate 93 /min Niesha Galdamez MD Work Phone: [facility] 01-05-2024 12:35-0500 Respiratory rate 15 /min Niesha Galdamez MD Work Phone: [facility] 01-05-2024 12:35-0500 SaO2% (BldA) [Mass fraction] 96 % Niesha Galdamez MD Work Phone: [facility] 01-05-2024 12:35-0500 Systolic blood pressure 139 mm[Hg] Niesha Galdamez MD Work Phone: [facility] 12-30-2023 11:03-0500 Body temperature 98.49 [degF] JUANPABLO Varela MD Work Phone: [facility] 12-30-2023 11:03-0500 Body weight 84.8 kg JUANPABLO Varela MD Work Phone: [facility] 12-30-2023 11:03-0500 Diastolic blood pressure 81 mm[Hg] JUANPABLO Varela MD Work Phone: [facility] 12-30-2023 11:03-0500 Heart rate 89 /min JUANPABLO Varela MD Work Phone: [facility] 12-30-2023 11:03-0500 Respiratory rate 16 /min JUANPABLO Varela MD Work Phone: [facility] 12-30-2023 11:03-0500 SaO2% (BldA) [Mass fraction] 97 % JUANPABLO Varela MD Work Phone: [facility] 12-30-2023 11:03-0500 Systolic blood pressure 116 mm[Hg] NA Zee LOFTON Work Phone: [facility] 12-25-2023 14:58-0500 Body height 179.5 cm Michael Boykin MD Work Phone: [facility] 12-25-2023 14:58-0500 Body temperature 97.7 [degF] Michael Boykin MD Work Phone: [facility] 12-25-2023 14:58-0500 Body weight 84.2 kg Michael Boykin MD Work Phone: [facility] 12-25-2023 14:58-0500 Diastolic blood pressure 82 mm[Hg] Michael Boykin MD Work Phone: [facility] 12-25-2023 14:58-0500 Heart rate 88 /min Michael Boykin MD Work Phone: [facility] 12-25-2023 14:58-0500 Respiratory rate 16 /min Michael Boykin MD Work Phone: [facility] 12-25-2023 14:58-0500 SaO2% (BldA) [Mass fraction] 98 % Michael Boykin MD Work Phone: [facility] 12-25-2023 14:58-0500 Systolic blood pressure 141 mm[Hg] Michael Boykin MD Work Phone: [facility] 09-03-2023 09:15-0400 Body temperature 97.9 [degF] Chair Hawthorne Work Phone: [facility] 09-03-2023 09:15-0400 Diastolic blood pressure 71 mm[Hg] Chair Hawthorne Work Phone: [facility] 09-03-2023 09:15-0400 Heart rate 77 /min Chair Jordan Work Phone: [facility] 09-03-2023 09:15-0400 Respiratory rate 16 /min Chair Hawthorne Work Phone: [facility] 09-03-2023 09:15-0400 SaO2% (BldA) [Mass fraction] 97 % Chair Jordan Work Phone: [facility] 09-03-2023 09:15-0400 Systolic blood pressure 106 mm[Hg] Chair Jordan Work Phone: [facility] 09-02-2023 09:01-0400 Body height 179.5 cm Michael Boykin MD Work Phone: [facility] 09-02-2023 09:01-0400 Body temperature 97.39 [degF] Michael Boykin MD Work Phone: [facility] 09-02-2023 09:01-0400 Body weight 80.38 kg Michael Boykin MD Work Phone: [facility] 09-02-2023 09:01-0400 Diastolic blood pressure 75 mm[Hg] Michael Boykin MD Work Phone: [facility] 09-02-2023 09:01-0400 Heart rate 80 /min Mcihael Boykin MD Work Phone: [facility] 09-02-2023 09:01-0400 Respiratory rate 16 /min Michael Boykin MD Work Phone: [facility] 09-02-2023 09:01-0400 SaO2% (BldA) [Mass fraction] 97 % Michael Boykin MD Work Phone: [facility] 09-02-2023 09:01-0400 Systolic blood pressure 130 mm[Hg] Michael Boykin MD Work Phone: [facility] 07-09-2023 09:11-0400 Body temperature 98.01 [degF] Chair Hawthorne Work Phone: [facility] 07-09-2023 09:11-0400 Diastolic blood pressure 68 mm[Hg] Chair Hawthorne Work Phone: [facility] 07-09-2023 09:11-0400 Heart rate 74 /min Chair Hawthorne Work Phone: [facility] 07-09-2023 09:11-0400 Respiratory rate 16 /min Chair Jordan Work Phone: [facility] 07-09-2023 09:11-0400 SaO2% (BldA) [Mass fraction] 98 % Chair Hawthorne Work Phone: [facility] 07-09-2023 09:11-0400 Systolic blood pressure 112 mm[Hg] Chair Hawthorne Work Phone: [facility] 07-08-2023 11:42-0400 Body temperature 98.01 [degF] Chair Jordan Work Phone: [facility] 07-08-2023 11:42-0400 Diastolic blood pressure 64 mm[Hg] Chair Jordan Work Phone: [facility] 07-08-2023 11:42-0400 Heart rate 54 /min Chair Hawthorne Work Phone: [facility] 07-08-2023 11:42-0400 Respiratory rate 16 /min Chair Hawthorne Work Phone: [facility] 07-08-2023 11:42-0400 SaO2% (BldA) [Mass fraction] 97 % Chair Hawthorne Work Phone: [facility] 07-08-2023 11:42-0400 Systolic blood pressure 98 mm[Hg] Chair Jordan Work Phone: [facility] 09-05-2023 08:41-0400 Body height 179.5 cm Michael Boykin MD Work Phone: [facility] 07-08-2023 08:41-0400 Body temperature 97.59 [degF] Michael Boykin MD Work Phone: [facility] 07-08-2023 08:41-0400 Body weight 76.57 kg Michael Boykin MD Work Phone: [facility] 07-08-2023 08:41-0400 Diastolic blood pressure 70 mm[Hg] Michael Boykin MD Work Phone: [facility] 07-08-2023 08:41-0400 Heart rate 85 /min Michael Boykin MD Work Phone: [facility] 07-08-2023 08:41-0400 Respiratory rate 18 /min Michael Boykin MD Work Phone: [facility] 07-08-2023 08:41-0400 SaO2% (BldA) [Mass fraction] 97 % Michael Boykin MD Work Phone: [facility] 07-08-2023 08:41-0400 Systolic blood pressure 116 mm[Hg] Michael Boykin MD Work Phone: [facility] 06-11-2023 08:57-0400 Body temperature 98.29 [degF] Chair Hawthorne Work Phone: [facility] 06-11-2023 08:57-0400 Diastolic blood pressure 72 mm[Hg] Chair Hawthorne Work Phone: [facility] 06-11-2023 08:57-0400 Heart rate 70 /min Chair Jordan Work Phone: [facility] 06-11-2023 08:57-0400 Respiratory rate 18 /min Chair Hawthorne Work Phone: [facility] 06-11-2023 08:57-0400 SaO2% (BldA) [Mass fraction] 98 % Chair Jordan Work Phone: [facility] 06-11-2023 08:57-0400 Systolic blood pressure 117 mm[Hg] Chair Hawthorne Work Phone: [facility] 06-10-2023 14:09-0400 Body temperature 98.2 [degF] Chair Hawthorne Work Phone: [facility] 06-10-2023 14:09-0400 Diastolic blood pressure 63 mm[Hg] Chair Hawthorne Work Phone: [facility] 06-10-2023 14:09-0400 Heart rate 70 /min Chair Jordan Work Phone: [facility] 06-10-2023 14:09-0400 Respiratory rate 16 /min Chair Hawthorne Work Phone: [facility] 06-10-2023 14:09-0400 SaO2% (BldA) [Mass fraction] 96 % Chair Hawthorne Work Phone: [facility] 06-10-2023 14:09-0400 Systolic blood pressure 102 mm[Hg] Chair Hawthorne Work Phone: [facility] 06-10-2023 09:00-0400 Body height 179.5 cm Chair Jordan Work Phone: [facility] 06-10-2023 09:00-0400 Body weight 79.83 kg Chair Hawthorne Work Phone: [facility] 06-05-2023 15:27-0400 Body height 177.8 cm Michael Boykin MD Work Phone: [facility] 06-05-2023 15:27-0400 Body temperature 97.39 [degF] Michael Boykin MD Work Phone: [facility] 06-05-2023 15:27-0400 Body weight 80.56 kg Michael Boykin MD Work Phone: [facility] 06-05-2023 15:27-0400 Diastolic blood pressure 72 mm[Hg] Michael Boykin MD Work Phone: [facility] 06-05-2023 15:27-0400 Heart rate 83 /min Michael Boykin MD Work Phone: [facility] 06-05-2023 15:27-0400 Respiratory rate 16 /min Michael Boykin MD Work Phone: [facility] 06-05-2023 15:27-0400 SaO2% (BldA) [Mass fraction] 96 % Michael Boykin MD Work Phone: [facility] 06-05-2023 15:27-0400 Systolic blood pressure 129 mm[Hg] Micahel Boykin MD Work Phone: [facility] 05-27-2023 14:51-0400 Body height 177.8 cm Niesha Galdamez MD Work Phone: [facility] 05-27-2023 14:51-0400 Body temperature 98.01 [degF] Niesha Galdamez MD Work Phone: [facility] 05-27-2023 14:51-0400 Body weight 80.2 kg Niesha Galdamez MD Work Phone: [facility] 05-27-2023 14:51-0400 Diastolic blood pressure 85 mm[Hg] Niesha Galdamez MD Work Phone: [facility] 05-27-2023 14:51-0400 Heart rate 90 /min Niesha Galdamez MD Work Phone: [facility] 05-27-2023 14:51-0400 Respiratory rate 18 /min Niesha Galdamez MD Work Phone: [facility] 05-27-2023 14:51-0400 SaO2% (BldA) [Mass fraction] 97 % Niesha Galdamez MD Work Phone: [facility] 05-27-2023 14:51-0400 Systolic blood pressure 144 mm[Hg] Niesha Galdamez MD Work Phone: [facility] 05-22-2023 14:58-0400 Body height 177.8 cm Michael Boykin MD Work Phone: [facility] 05-22-2023 14:58-0400 Body temperature 98.29 [degF] Michael Boykin MD Work Phone: [facility] 05-22-2023 14:58-0400 Body weight 78.74 kg Michael Boykin MD Work Phone: [facility] 05-22-2023 14:58-0400 Diastolic blood pressure 73 mm[Hg] Michael Boykin MD Work Phone: [facility] 05-22-2023 14:58-0400 Heart rate 84 /min Michael Boykin MD Work Phone: [facility] 05-22-2023 14:58-0400 Respiratory rate 16 /min Michael Boykin MD Work Phone: [facility] 05-22-2023 14:58-0400 SaO2% (BldA) [Mass fraction] 97 % Michael Boykin MD Work Phone: [facility] 05-22-2023 14:58-0400 Systolic blood pressure 120 mm[Hg] Michael Boykin MD Work Phone: [facility] 05-13-2023 10:57-0400 Body height 177.8 cm Michael Boykin MD Work Phone: [facility] 05-13-2023 10:57-0400 Body temperature 98.2 [degF] Michael Boykin MD Work Phone: [facility] 05-13-2023 10:57-0400 Body weight 79.47 kg Michael Boykin MD Work Phone: [facility] 05-13-2023 10:57-0400 Diastolic blood pressure 70 mm[Hg] Michael Boykin MD Work Phone: [facility] 05-13-2023 10:57-0400 Heart rate 75 /min Michael Boykin MD Work Phone: [facility] 05-13-2023 10:57-0400 Respiratory rate 16 /min Michael Boykin MD Work Phone: [facility] 05-13-2023 10:57-0400 SaO2% (BldA) [Mass fraction] 97 % Michael Boykin MD Work Phone: [facility] 05-13-2023 10:57-0400 Systolic blood pressure 134 mm[Hg] Michael Boykin MD Work Phone: [facility] 04-29-2023 13:13-0400 Blood Pressure Location Chiquita NILL [facility] 04-29-2023 13:13-0400 Diastolic blood pressure 76 mm[Hg] Chiquita NILL [facility] 04-29-2023 13:13-0400 Heart rate 72 /min Chiquita NILL [facility] 04-29-2023 13:13-0400 Respiratory rate 16 /min Chiquita NILL [facility] 04-29-2023 13:13-0400 Systolic blood pressure 122 mm[Hg] Chiquita NILL [facility] Encounters Encounter Date Encounter Type Care Provider Facility Start: 09-08-2024 End: 09-08-2024 ambulatory Shae Tirado MA [facility] Start: 09-08-2024 End: 09-08-2024 Patient encounter procedure Shae Tirado MA [facility] Comment on above: Population Health Na vigation [...] Start: 07-14-2024 End: 07-14-2024 ambulatory Chiquita RIVERA Facility:[facility] Start: 07-14-2024 End: 07-14-2024 Patient encounter procedure Chiquita RIVERA [facility] Start: 07-07-2024 End: 07-07-2024 ambulatory [facility] Facility:[facility] Start: 07-07-2024 End: 07-07-2024 Subsequent hospital visit by physician Arrival Time Radiology Work Phone: [facility] Comment on above: Diffuse large B-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 Work Phone: Start: 06-23-2024 End: 06-23-2024 Departed Referred MD Chiquita Rivera Work Phone: [facility] Start: 06-23-2024 End: 06-23-2024 ambulatory Chiquita RIVERA Facility:[id number] Start: 06-17-2024 End: 06-17-2024 Patient encounter procedure Michael Boykin MD Work Phone: Hematology/Oncology Start: 06-17-2024 End: 06-17-2024 ambulatory Lab/[facility] [place] Work Phone: Hematology/Oncology Comment on above: Diffuse large B-cell lymphoma of lymph nodes of multiple regions (HCC) Diffuse large B-cell lymphoma of lymph nodes of multiple regions (HCC) (Primary Dx); Lymphedema Start: 06-08-2024 End: 06-08-2024 ambulatory [facility]ita [facility]IVERA [facility] Start: 06-08-2024 End: 06-08-2024 Patient encounter procedure Chiquita RIVERA [facility] Start: 06-02-2024 Telephone encounter Mitra BARBA Work Phone: Psychiatry Comment on above: Referral / [facility] Start: 05-17-2024 Telephone encounter Ivania frias RN Work Phone: Hematology/Oncology Comment on above: Roofer Gypsum - O ther (Appointment) Start: 05-13-2024 End: [...] Start: 05-07-2024 End: 05-07-2024 ambulatory NIESHA GALDAMEZ Facility:[facility] Start: 05-07-2024 End: 05-07-2024 Subsequent hospital visit by physician Arrival Time Radiology Work Phone: Radiology [facility] Comment on above: Diffuse large B-cell lymphoma, unspecified body region (HCC) [C83.30] Start: 05-03-2024 Telephone encounter Danielle patel RN Hematology/Oncology Comment on above: Patient Update (Week ly Labs) Start: 05-03-2024 End: 05-03-2024 ambulatory NIESHA GALDAMEZ Facility:[facility] Start: 04-30-2024 Telephone encounter Danielle patel RN Hematology/Oncology Comment on above: Patient Update Start: 04-23-2024 End: 04-23-2024 Patient encounter procedure Nabila Chery APRN.OUTPATIENT INTERVIEWING CLERK Work Phone: Hematology/Oncology Start: 04-23-2024 End: [...] 04-14-2024 Emergency department patient visit NIESHA GALDAMEZ Facility:[facility] Start: 04-14-2024 Telephone encounter Cecil castañeda MD Work Phone: Pulmonary Medicine Comment on above: Returning Patient's Call Start: 04-07-2024 End: 04-07-2024 Evaluation and management of inpatient DANIELLE WINTER Facility:[facility] Start: 04-06-2024 Orders Only Niesha Galdamez MD Work Phone: Hematology/Oncology Comment on above: Diffuse large B-cell lymphoma, unspecified body region (HCC) (Primary Dx); History of engineered cell therapy infusion; Diffuse large b-cell lymphoma, lymph nodes of multiple sites (HCC) Start: 04-03-2024 End: 04-04-2024 ambulatory Chair 31 [facility] Work Phone: Hematology/Oncology Comment on above: Encounter for antine oplastic chemotherapy (Primary Dx); Diffuse large B-cell lymphoma of lymph nodes of multiple regions (HCC) Start: 04-02-2024 End: 04-03-2024 ambulatory Chair 14 [facility] Work Phone: Hematology/Oncology Comment [...] Phone: Hematology/Oncology Start: 03-26-2024 ambulatory Priyanka Echols [facility]/Oncology Start: 03-25-2024 End: 03-25-2024 ambulatory NIESHA CARBON HILL Facility:[facility] Start: 03-25-2024 End: 03-25-2024 Subsequent hospital visit by physician Arrival Time Radiology Work Phone: Radiology [facility] Comment on above: 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) [C83.35] Start: 03-22-2024 End: 03-22-2024 ambulatory Tristen VARELA Facility:[facility] Start: 03-22-2024 End: 03-22-2024 Patient encounter procedure Tristen Varela MD Work Phone: Radiation Oncology Comment on above: Follicular lymphoma grade IIIa, unspecified body region (HCC) (Primary Dx) Start: 03-22-2024 Radiation Oncology Note Tristen Varela MD Work Phone: Radiation Oncology Comment on above: Completion Note Start: 03-19-2024 End: 03-19-2024 Social Work Merced ACEVEDO Hematology/Oncology Start: 03-18-2024 End: 03-18-2024 ambulatory NIESHA GALDAMEZ Facility:[facility] Start: 03-17-2024 End: 03-17-2024 ambulatory NIESHA CARBON HILL Facility:[facility] Start: 03-16-2024 End: 03-16-2024 ambulatory Tristen VARELA Facility:[facility] Start: 03-16-2024 End: 03-16-2024 Patient encounter procedure [...] End: 03-15-2024 Subsequent hospital visit by physician Trisetn Varela MD Work Phone: Radiology [facility] Start: 03-13-2024 Telephone encounter Tabitha Montana MD Work Phone: Hematology/Oncology Start: 03-10-2024 Telephone encounter Noah slater RN Work Phone: Hematology/Oncology Start: 03-09-2024 End: 03-09-2024 ambulatory [facility] Work Phone: Hematology/Oncology Comment on above: Diffuse large B-cell lymphoma of lymph nodes of multiple regions (HCC) (Primary Dx) Start: 03-09-2024 End: 03-09-2024 ambulatory [facility] Facility:[facility] Start: 03-08-2024 End: 03-09-2024 Patient encounter procedure [...] on Start: 02-25-2024 Telephone encounter Krystyna cash [employer] Work Phone: Hematology/Oncology Comment on above: Social [...] MD Work Phone: Hematology/Oncology Comment on above: Roofer Gypsum - O ther (Next Steps) Diffuse large [...] encounter procedure Niesha Galdamez MD Work Phone: [facility] Start: 02-02-2024 End: 02-02-2024 Patient encounter procedure Michael Boykin MD Work Phone: [facility] Start: 02-02-2024 End: 02-02-2024 ambulatory Brit Arzola MA [facility] Comment on above: Population Health Na vigation Outreach (ACO NO PCP) 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); History of follicular lymphoma Start: 01-30-2024 End: 01-30-2024 ambulatory NIESHA GALDAMEZ Facility:[facility] Start: 01-30-2024 End: 01-30-2024 Subsequent hospital visit by physician Arrival Time Radiology Work Phone: Radiology [facility] Comment on above: Diffuse large B-cell lymphoma, unspecified body region (HCC) [C83.30] Start: 01-28-2024 ambulatory SELF SELF Facility:[facility] Start: 01-28-2024 End: 01-29-2024 Office outpatient new 60 minutes Dorcas Bolanos MD Work Phone: Division of Hematology & Oncology at [facility] Comment on above: Diffuse large B-cell lymphoma, unspecified body region Start: 01-27-2024 Telephone encounter Radha womack RN Work Phone: Hematology/Oncology Comment on above: Patient Update (Init ial CAR-T phone call) Start: 01-23-2024 ambulatory Radha Peng RN Work Phone: Hematology/Oncology Comment on above: CAR-T Therapy Start: 01-23-2024 E-mail encounter fro m caregiver Radha Peng RN Work Phone: [facility] Start: 01-16-2024 End: 01-16-2024 ambulatory Niesha Galdamez MD Work Phone: Hematology/Oncology Comment on above: 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) (Primary Dx) Start: 01-16-2024 End: 01-16-2024 Telemedicine consultation with patient Niesha Galdamez MD Work Phone: [facility] Start: 01-14-2024 Telephone encounter Ivania frias [...] encounter procedure Niesha Galdamez MD Work Phone: [facility] Start: 12-30-2023 End: 12-30-2023 ambulatory MICHAEL BOYKIN Facility:[facility] Start: 12-30-2023 End: 12-30-2023 Patient encounter procedure [...] Start: 12-17-2023 End: 12-17-2023 [address]iezer Miugel [facility] Work Phone: Start: 12-17-2023 End: 12-17-2023 Departed Referred MD Chiquita Rivera Work Phone: [facility] Start: 12-17-2023 End: 12-17-2023 ambulatory Chiquita RIVERA Facility: [facility] Start: 12-15-2023 Telephone encounter Michael parker MD Work Phone: [facility] Comment on above: Future Appointment Start: 12-09-2023 End: 12-09-2023 ambulatory Michael Boykin Facility:[facility] Start: 11-20-2023 End: 11-20-2023 ambulatory MICHAEL BOYKIN Facility:[facility] Start: 11-18-2023 End: 11-18-2023 ambulatory CLEO FELIZ Facility:[facility] Start: 11-18-2023 End: 11-18-2023 Subsequent hospital visit by physician Arrival Time Radiology Work Phone: Radiology [facility] Comment on above: Diffuse large B-cell lymphoma, unspecified body region (HCC) [C83.30] Start: 10-29-2023 End: 10-29-2023 ambulatory MICHAEL BOYKIN Facility:[facility] Start: 10-28-2023 End: 10-28-2023 ambulatory MICHAEL BOYKIN Facility:[facility] Start: 10-23-2023 Telephone encounter Michael parker MD Work Phone: Hematology/Oncology Comment on above: Lab Orders Start: 10-01-2023 End: 10-01-2023 ambulatory Chair 10 [place] Work Phone: Hematology/Oncology Comment on above: 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) Start: 09-30-2023 End: 10-01-2023 ambulatory Lab/[place] Work Phone: Hematology/Oncology Comment on above: 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) Start: 09-23-2023 End: 09-23-2023 ambulatory MICHAEL BOYKIN Facility:[facility] Start: 09-23-2023 End: 09-23-2023 Subsequent hospital visit [...] Start: 06-19-2023 End: 06-19-2023 ambulatory Lab/[place] Work Phone: Hematology/Oncology Comment on above: 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) Start: 06-17-2023 End: 06-17-2023 Patient encounter procedure Chiquita RIVERA General [facility] Start: 06-12-2023 Telephone encounter Fifi Sommers RN [...] RN Work Phone: Hematology/Oncology Comment on above: Roofer Gypsum - O ther (Uric Acid Results) Roofer Gypsum - O ther (Medication Problem) Start: 06-05-2023 [...] MD Work Phone: Hematology/Oncology Comment on above: Roofer Gypsum - O ther Start: 05-27-2023 End: 05-28-2023 ambulatory Niesha Galdamez MD Work Phone: Hematology/Oncology Comment on above: History of diffuse l arge B-cell lymphoma (Primary Dx); Diffuse large B-cell lymphoma of lymph nodes of multiple regions (HCC); 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) Start: 05-27-2023 End: 05-28-2023 Patient encounter procedure Niesha Galdamez MD Work Phone: [facility] Start: 05-23-2023 Telephone encounter Michael parker MD Work Phone: [facility] Comment on above: Appointment Start: 05-22-2023 End: 05-22-2023 ambulatory Michael Boykin MD Work Phone: Hematology/Oncology Comment on above: Diffuse large B-cell lymphoma of lymph nodes of multiple regions (HCC) (Primary Dx) Start: 05-22-2023 End: 05-22-2023 Patient encounter procedure Michael Boykin MD Work Phone: [facility] Start: 05-21-2023 Telephone encounter Ivania frias RN Work Phone: Hematology/Oncology Comment on above: Care Coordination (P athology Update) Start: 05-19-2023 Telephone encounter Ivania frias RN Work Phone: Hematology/Oncology Comment on above: Care Coordination (P athology Results) Start: 05-16-2023 Telephone encounter Michael parker MD Work Phone: [facility] Comment on above: 2nd opinion path Start: [...] encounter procedure Chiquita RIVERA General Surgery [place] Start: 04-02-2023 End: 04-03-2023 ambulatory [facility] Start: 04-02-2023 End: 04-02-2023 Subsequent hospital visit by physician [facility] Laboratory Comment on above: Non-Hodgkin's lympho ma, unspecified body region, unspecified non-Hodgkin lymphoma type (HCC); Hypothyroidism, unspecified type Start: 04-05-2021 End: 04-05-2021 Subsequent hospital visit by physician [facility] Laboratory Comment on above: Non-Hodgkin's lympho ma, unspecified body region, unspecified non-Hodgkin lymphoma type (HCC); Hypothyroidism, unspecified type Start: 04-17-2020 End: 04-17-2020 Subsequent hospital visit by physician [facility] Lab Drawing Room [facility] Laboratory Comment on above: Non-Hodgkin's lympho ma, unspecified body region, unspecified non-Hodgkin lymphoma type (HCC); Hypothyroidism, unspecified type; Encounter for screening for lung cancer Procedures Date Procedure Procedure Detail Performing Clinician Start: 07-07-[address] atten uation skull base mid-thigh Michael Boykin MD Work Phone: Start: 07-07-2024 End: 07-07-2024 Blood count complete auto&auto difrntl wbc Nabila Chery MANAGER ACTUARIALAnupOUTPATIENT INTERVIEWING CLERK Work Phone: Start: 06-23-2024 Colonoscopy Chiquita [...] Comment: Speci men Type: BLOOD SPECIMENOrdering Facility: [facility] Address: [address] [place] [address] Performed By: #### T SCR ####CC MAIN BLOOD BANKCLIA [id number] [address] Start: 04-23-2024 End: 04-23-2024 Antibody screen rbc each serum technique Niesha Galdamez MD Work Phone: Start: 04-23-2024 CBC + DIFF Niesha diaz MD Work Phone: Start: 04-23-2024 End: 04-23-2024 Comprehensive metabolic panel Niesha Galdamez MD Work Phone: Start: 04-14-2024 Antibody screen NIESHA GALDAMEZ Comment on above: Order Comment: Speci men Type: BLOOD SPECIMENOrdering Facility: [facility] Address: [address] [place] [address] Performed By: #### T SCR ####CC MAIN BLOOD BANKCLIA [id number] [address] [place] Start: 04-11-2024 Antibody screen NIESHA GALDAMEZ Comment on above: Order Comment: Speci men Type: BLOOD SPECIMENOrdering Facility: [facility] Address: [address] [place] [address] Performed By: #### T SCR ####CC MAIN BLOOD BANKCLIA [id number] [address] Start: 04-08-2024 Antibody screen NIESHA GALDAMEZ Comment on above: Order Comment: Speci men Type: BLOOD SPECIMENOrdering Facility: [facility] Address: [address] [place] [address] Performed By: #### T SCR ####CC MAIN BLOOD BANKCLIA [id number] [address] Start: 04-06-2024 Antibody screen NIESHA GALDAMEZ Comment on above: Order Comment: Speci men Type: BLOOD SPECIMENOrdering Facility: [facility] Address: [address] [place] [address] Performed By: #### T SCR ####CC MAIN BLOOD BANKCLIA [id number] [address] Start: 04-01-2024 Blood count complete auto&auto [...] Comment: Speci men Type: BLOOD SPECIMENOrdering Facility: [facility] Address: [address] [place] [address] Performed By: #### T SCR ####CC MAIN BLOOD BANKCLIA [id number] [address] [place] Start: 02-24-2024 Antibody screen [...] 01-28-2024 Comprehensive metabo lic panel Patti Isidro MANAGER ACTUARIAL-OUTPATIENT INTERVIEWING CLERK Work Phone: Start: 01-28-2024 Hepatitis b surf ant ibody hbsab Patti Isidro MANAGER ACTUARIAL-OUTPATIENT INTERVIEWING CLERK Work Phone: Start: 01-28-2024 Iaad ia hiv-1 ag w/h iv-1 & hiv-2 antbdy single Patti Isidro MANAGER ACTUARIAL-OUTPATIENT INTERVIEWING CLERK Work Phone: Start: 12-25-2023 Blood count complete auto&auto difrntl wbc Michael Boykin MD Work Phone: Start: 12-17-2023 Excision of inguinal lymph nodes Chiquita RIVERA Start: 11-18-[address] atten uation skull base mid-thigh Cleo Feliz MANAGER ACTUARIAL.OUTPATIENT INTERVIEWING CLERK Work Phone: Start: 11-18-2023 End: 11-18-2023 Blood count complete auto&auto difrntl wbc Cleo Feliz MANAGER ACTUARIAL.OUTPATIENT INTERVIEWING CLERK Work Phone: Start: 09-30-2023 Blood count [...] Author Start: 07-07-2027 Diabetes Screening Diabetes Screenin [facility] Start: 06-17-2027 Diabetes Screening Diabetes Screenin g [facility] Start: 05-13-2027 Diabetes Screening Diabetes Screenin g [facility] Start: 05-03-2027 Diabetes Screening Diabetes Screenin g [facility] Start: 04-23-2027 Diabetes Screening Diabetes Screenin g [facility] Start: 04-14-2027 Diabetes Screening Diabetes Screenin g [facility] Start: 04-06-2027 Diabetes Screening Diabetes Screenin g [facility] Start: 04-01-2027 Diabetes Screening Diabetes Screenin g [facility] Start: 03-09-2027 Diabetes Screening Diabetes Screenin g [facility] Start: 03-08-2027 Diabetes Screening Diabetes Screenin g [facility] Start: 02-23-2027 Diabetes Screening Diabetes Screenin g [facility] Start: 01-27-2027 Diabetes Screening Diabetes Screenin g [facility] Start: 12-25-2026 Diabetes Screening Diabetes Screenin g [facility] Start: 11-18-2026 Diabetes Screening Diabetes Screenin g [facility] Start: 09-30-2026 Diabetes Screening Diabetes Screenin tristen [facility] Start: 09-02-2026 Diabetes Screening Diabetes Screenin tristen [facility] Start: 08-05-2026 Diabetes Screening Diabetes Screenin g [facility] Start: 07-22-2026 Diabetes Screening Diabetes Screenin g [facility] Start: 07-08-2026 DIABETES SCREEN DIABETES SCREEN [facility] Start: 06-19-2026 DIABETES SCREEN DIABETES SCREEN [facility] Start: 06-05-2026 DIABETES SCREEN DIABETES SCREEN [facility] Start: 05-13-2026 DIABETES SCREEN DIABETES SCREEN [facility] Start: 10-18-2024 End: 10-18-2024 Follow-up encounter Hematology/Oncology Comment on above: 3 month follow up [facility] lab port draw and flush Start: 07-19-2024 End: 10-18-2024 CBC W Auto Differential panel - Blood COMPLETE BLOOD COUNT AND DIFFERENTIAL Lab Routine Diffuse large B-cell lymphoma of lymph nodes of multiple regions (HCC) Expected: 07/19/2024, Expires: 10/18/2024 [facility] Work Phone: Comment on above: Expected: 07/19/2024 , Expires: 10/18/2024 Start: 07-19-2024 End: 10-18-2024 Comprehensive metabolic 2000 panel - Serum or Plasma COMPREHENSIVE METABOLIC PANEL Lab Routine Diffuse large B-cell lymphoma of lymph nodes of multiple regions (HCC) Expected: 07/19/2024, Expires: 10/18/2024 [facility] Comment on above: Expected: 07/19/2024 , Expires: 10/18/2024 Start: 07-19-2024 End: 07-19-2024 Follow-up encounter 07/19/2024 9:30 AM EDT Visit (SP) Office Hematology/Oncology [address] [place] [address] Michael Boykin MD [address] [place] [address] follow up after pet scan and lab Hematology/Oncology Comment on above: follow up after pet scan and lab Start: 07-07-2024 End: 07-07-2024 Patient encounter procedure 07/07/2024 12:15 PM EDT Appointment Radiology Pet CT [address] [place] [address] Pet scan and lab in [address] Comment on above: Pet scan and lab in 3 weeks Start: 07-04-2024 Influenza vaccination O [facility] Start: 06-17-2024 End: 06-17-2024 Telephone follow-up 06/17/2024 3:00 PM EDT Visit (SP) Office Hematology/Oncology [address] [place] [address] Michael Boykin MD [address] [place] [address] lab & 2 month follow up from CAR-T infusion per phone encounter-date & time ok'd by [facility] Hematology/Oncology Comment on above: lab & 2 month follow up from CAR-T infusion per phone encounter-date & time ok'd by [facility] Start: 06-17-2024 End: 06-17-2024 Patient encounter procedure 06/17/2024 2:45 PM EDT Office Visit [facility] [address] [place] [address] lab & 2 month follow up from CAR-T infusion per phone encounter-date & time ok'd by [facility] Comment on above: lab & 2 month follow up from CAR-T infusion per phone encounter-date & time ok'd by [facility] Start: 05-13-2024 End: 08-12-2024 C reactive protein [Mass/volume] in Serum or Plasma C-REACTIVE PROTEIN Lab Routine Diffuse large B-cell lymphoma, unspecified body region (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 Expected: 05/13/2024, Expires: 08/12/2024 [facility] Comment on above: Expected: 05/13/2024 , Expires: 08/12/2024 Start: 05-13-2024 End: 08-12-2024 CBC W Auto Differential panel - Blood COMPLETE BLOOD COUNT AND DIFFERENTIAL Lab Routine Diffuse large B-cell lymphoma, unspecified body region (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 Expected: 05/13/2024, Expires: 08/12/2024 [facility] Comment on above: Expected: 05/13/2024 , Expires: 08/12/2024 Start: 05-13-2024 End: 08-12-2024 Comprehensive metabolic 2000 panel - Serum or Plasma COMPREHENSIVE METABOLIC PANEL Lab Routine Diffuse large B-cell lymphoma, unspecified body region (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 Expected: 05/13/2024, Expires: 08/12/2024 [facility] Comment on above: Expected: 05/13/2024 , Expires: 08/12/2024 Start: 05-13-2024 End: 08-12-2024 CYTOMEGALOVIRUS (CMV) DNA, QUANTITATIVE PCR, PLASMA [facility] Comment on above: Expected: 05/13/2024 , Expires: 08/12/2024 Start: 05-13-2024 End: 08-12-2024 Ferritin [Mass/volume] in Serum or Plasma FERRITIN Lab Routine Diffuse large B-cell lymphoma, unspecified body region (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 Expected: 05/13/2024, Expires: 08/12/2024 [facility] Comment on above: Expected: 05/13/2024 , Expires: 08/12/2024 Start: 05-13-2024 End: 08-12-2024 Immunodeficiency panel - Blood by Flow cytometry (FC) [facility] Comment on above: Expected: 05/13/2024 , Expires: 08/12/2024 Start: 05-13-2024 End: 08-12-2024 IMMUNOGLOBULINS,IGG,IGA,I GM [facility] Comment on above: Expected: 05/13/2024 , Expires: 08/12/2024 Start: 05-13-2024 End: 08-12-2024 Lactate dehydrogenase [Enzymatic activity/volume] in Serum or Plasma LACTATE DEHYDROGENASE Lab Routine Diffuse large B-cell lymphoma, unspecified body region (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 Expected: 05/13/2024, Expires: 08/12/2024 [facility] Comment on above: Expected: 05/13/2024 , Expires: 08/12/2024 Start: 05-13-2024 End: 08-12-2024 Magnesium [Mass/volume] in Serum or Plasma MAGNESIUM Lab Routine Diffuse large B-cell lymphoma, unspecified body region (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 Expected: 05/13/2024, Expires: 08/12/2024 [facility] Comment on above: Expected: 05/13/2024 , Expires: 08/12/2024 Start: 05-13-2024 End: 08-12-2024 Phosphate [Mass/volume] in Serum or Plasma PHOSPHORUS INORGANIC Lab Routine Diffuse large B-cell lymphoma, unspecified body region (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 Expected: 05/13/2024, Expires: 08/12/2024 [facility] Comment on above: Expected: 05/13/2024 , Expires: 08/12/2024 Start: 05-13-2024 End: 05-13-2024 ambulatory Hematology/Oncology Comment on above: DLBCL/C83.38 Start: 05-13-2024 End: 05-13-2024 Patient encounter procedure Infectious Disease Comment on above: POST BMT REVACCINATI ON ASSESSMENT DLBCL/C83.38 Start: 05-07-2024 End: 05-07-2024 Patient encounter procedure 05/07/2024 12:00 PM EDT Appointment Radiology Pet CT [address] [place] [address] [place] [address] Comment on above: Pet[facility] Start: 05-03-2024 End: 05-03-2024 Patient encounter procedure 05/03/2024 10:15 AM EDT Office Visit [facility] [address] [place] [address] [place] [address] lab [facility] Comment on above: lab Start: 04-23-2024 End: 07-23-2024 RUBEOLA (MEASLES)IGG [facility] Comment on above: Expected: 04/23/2024 , Expires: 07/23/2024 Start: 04-23-2024 End: 07-23-2024 VARICELLA ZOSTER IGG [facility] Work Phone: Comment on above: Expected: 04/23/2024 , Expires: 07/23/2024 Start: 04-16-2024 End: 04-16-2024 ambulatory Hematology/Oncology Comment on above: DLBCL/C83.38 Start: 04-06-2024 Subsequent hospital visit by physician 04/06/2024 Hospital Encounter HOSP MAIN [facility] [address] [place] [address] [place] [address] [place] [address] Diffuse large B-cell lymphoma, unspecified site [C83.30] HOSP MAIN [facility] Comment on above: Diffuse large B-cell lymphoma, unspecified site [C83.30] Start: 04-06-2024 End: 04-06-2024 Patient encounter procedure 04/06/2024 7:30 AM EDT Office Visit Admitting [address] [place] [address] DLBCL Admitting Comment on above: DLBCL Start: 04-03-2024 End: 04-03-2024 ambulatory 04/03/2024 7:30 AM EDT Infusion Center Hematology/Oncology [address] [place] [address] DLBCL/C83.38 Hematology/Oncology Comment on above: DLBCL/C83.38 Start: 04-02-2024 End: 04-02-2024 ambulatory 04/02/2024 10:15 AM EDT Infusion Center Hematology/Oncology [address] [place] [address] DLBCL/C83.38 Hematology/Oncology Comment on above: DLBCL/C83.38 Start: 04-01-2024 End: 04-01-2024 ambulatory Hematology/Oncology Comment on above: DLBCL DLBCL/C83.38 Start: 04-01-2024 End: 04-01-2024 ambulatory 04/01/2024 8:20 AM [facility] Hematology/Oncology [address] [place] [address] DLBCL/C83.38 Hematology/Oncology Comment on above: DLBCL/C83.38 Start: 03-31-2024 End: 06-30-2024 Bilirubin.total [Mass/volume] in Serum or Plasma BILIRUBIN TOTAL BLD Lab Routine Diffuse large B-cell lymphoma of lymph nodes of multiple regions (HCC) Expected: 03/31/2024, Expires: 06/30/2024 [facility] Work Phone: Comment on above: Expected: 03/31/2024 , Expires: 06/30/2024 Start: 03-31-2024 End: 06-30-2024 C reactive protein [Mass/volume] in Serum or Plasma C-REACTIVE PROTEIN Lab Routine Diffuse large B-cell lymphoma of lymph nodes of multiple regions (HCC) Expected: 03/31/2024, Expires: 06/30/2024 [facility] Work Phone: Comment on above: Expected: 03/31/2024 , Expires: 06/30/2024 Start: 03-31-2024 End: 06-30-2024 CBC W Auto Differential panel - Blood COMPLETE BLOOD COUNT AND DIFFERENTIAL Lab Routine Diffuse large B-cell lymphoma of lymph nodes of multiple regions (HCC) Expected: 03/31/2024, Expires: 06/30/2024 [facility] Work Phone: Comment on above: Expected: 03/31/2024 , Expires: 06/30/2024 Start: 03-31-2024 End: 06-30-2024 Comprehensive metabolic 2000 panel - Serum or Plasma COMPREHENSIVE METABOLIC PANEL Lab Routine Diffuse large B-cell lymphoma of lymph nodes of multiple regions (HCC) Expected: 03/31/2024, Expires: 06/30/2024 [facility] Work Phone: Comment on above: Expected: 03/31/2024 , Expires: 06/30/2024 Start: 03-31-2024 End: 06-30-2024 Lactate dehydrogenase [Enzymatic activity/volume] in Serum or Plasma LACTATE DEHYDROGENASE Lab Routine Diffuse large B-cell lymphoma of lymph nodes of multiple regions (HCC) Expected: 03/31/2024, Expires: 06/30/2024 [facility] Work Phone: Comment on above: Expected: 03/31/2024 , Expires: 06/30/2024 Start: 03-31-2024 End: 06-30-2024 Phosphate [Mass/volume] in Serum or Plasma PHOSPHORUS INORGANIC Lab Routine Diffuse large B-cell lymphoma of lymph nodes of multiple regions (HCC) Expected: 03/31/2024, Expires: 06/30/2024 [facility] Work Phone: Comment on above: Expected: 03/31/2024 , Expires: 06/30/2024 Start: 03-31-2024 End: 06-30-2024 Urate [Mass/volume] in Serum or Plasma URIC ACID Lab Routine Diffuse large B-cell lymphoma of lymph nodes of multiple regions (HCC) Expected: 03/31/2024, Expires: 06/30/2024 [facility] Work Phone: Comment on above: Expected: 03/31/2024 , Expires: 06/30/2024 Start: 03-31-2024 End: 03-31-2024 Patient encounter procedure Molecular Imaging Comment on above: NM PET/CT SKULL-THIG H SUB Start: 03-22-2024 End: 03-22-2024 Patient encounter procedure Radiation Oncology Comment on above: Pelvis Location: [facility] Start: 03-19-2024 End: 03-19-2024 Patient encounter procedure 03/19/2024 3:15 PM EDT Appointment Radiation Oncology [address] [place] [address] [place] [address] Pelvis Radiation Oncology Comment on above: Pelvis Start: 03-18-2024 End: 03-18-2024 Patient encounter procedure 03/18/2024 1:30 PM EDT Appointment Radiation Oncology [address] [place] [address] Pelvis Radiation Oncology Comment on above: Pelvis Start: 03-17-2024 End: 03-17-2024 Patient encounter procedure 03/17/2024 9:45 AM EDT Appointment Radiation Oncology [address] [place] [address] Pelvis Radiation Oncology Comment on above: Pelvis [...] 03/09/2024 9:30 AM EDT Infusion Center Hematology/Oncology [address] [place] [address] DLBCL/C83.38 Hematology/Oncology Comment on above: DLBCL/C83.38 Start: 03-09-2024 End: 03-09-2024 Admission to same day surgery center 03/09/2024 7:30 AM EDT - 03/09/2024 9:30 AM EDT Surgery Angio [address] [place] [address] 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 [address] [place] [address] INSERTION NON-TUNNELED CV CATHETER OVER AGE 5 Angio Comment on above: INSERTION NON-TUNNEL ED CV CATHETER OVER AGE 5 Start: 03-09-2024 Subsequent hospital visit by physician 03/09/2024 7:30 AM EDT Hospital Encounter Angio [address] [place] [address] 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 [address] [place] [address] Diffuse large B-cell lymphoma of lymph nodes of multiple regions (HCC) [C83.38] Angio Comment on above: Diffuse large B-cell lymphoma of lymph nodes of multiple regions (HCC) [C83.38] Start: 03-09-2024 End: 03-09-2024 Insj non-tunneled central venous cath age 6 yr/> [facility] ANGIO HB6 Start: 03-08-2024 End: 03-08-2024 ambulatory Hematology/Oncology Comment on above: DLBCL DLBCL/C83.38 Start: 03-08-2024 End: 06-07-2024 BLOOD TB SCREEN [facility] Work Phone: Comment on above: Expected: 03/08/2024 , Expires: 06/07/2024 Start: 02-24-2024 End: 02-24-2024 Patient encounter procedure 02/24/2024 2:30 PM EDT Office Visit Cardiology [address] [place] [address] Diffuse large B-cell lymphoma of lymph nodes [...] (HCC) Expected: 02/24/2024, Expires: 05/25/2024 [facility] Work Phone: Comment on above: Expected: 02/24/2024 , Expires: 05/25/2024 Start: 02-24-2024 End: 05-25-2024 BLOOD TB SCREEN [facility] Work Phone: Comment on above: Expected: 02/24/2024 , Expires: 05/25/2024 Start: 02-24-2024 End: 05-25-2024 CBC W Auto Differential panel - Blood COMPLETE BLOOD COUNT AND DIFFERENTIAL Lab Routine Diffuse large B-cell lymphoma of lymph nodes of multiple regions (HCC) Expected: 02/24/2024, Expires: 05/25/2024 [facility] Work Phone: Comment on above: Expected: 02/24/2024 , Expires: 05/25/2024 Start: 02-24-2024 End: 05-25-2024 Comprehensive metabolic 2000 panel - Serum or Plasma COMPREHENSIVE METABOLIC PANEL Lab Routine Diffuse large B-cell lymphoma of lymph nodes of multiple regions (HCC) Expected: 02/24/2024, Expires: 05/25/2024 [facility] Work Phone: Comment on above: Expected: 02/24/2024 , Expires: 05/25/2024 Start: 02-24-2024 End: 05-25-2024 Erythrocyte sedimentation rate SEDIMENTATION RATE, WESTERGREN Lab Routine Diffuse large B-cell lymphoma of lymph nodes of multiple regions (HCC) Expected: 02/24/2024, Expires: 05/25/2024 [facility] Work Phone: Comment on above: Expected: 02/24/2024 , Expires: 05/25/2024 Start: 02-24-2024 End: 05-25-2024 Fibrin D-dimer FEU [Mass/volume] in Platelet poor plasma D-DIMER Lab Routine Diffuse large B-cell lymphoma of lymph nodes of multiple regions (HCC) Expected: 02/24/2024, Expires: 05/25/2024 [facility] Work Phone: Comment on above: Expected: 02/24/2024 , Expires: 05/25/2024 Start: 02-24-2024 End: 05-25-2024 Fibrinogen [Mass/volume] in Platelet poor plasma by Coagulation assay FIBRINOGEN Lab Routine Diffuse large B-cell lymphoma of lymph nodes of multiple regions (HCC) Expected: 02/24/2024, Expires: 05/25/2024 [facility] Work Phone: Comment on above: Expected: 02/24/2024 , Expires: 05/25/2024 Start: 02-24-2024 End: 05-25-2024 Hepatitis B virus surface Ab [Presence] in Serum HEPATITIS B SURFACE ANTIBODY Lab Routine Diffuse large B-cell lymphoma of lymph nodes of multiple regions (HCC) Expected: 02/24/2024, Expires: 05/25/2024 [facility] Work Phone: Comment on above: Expected: 02/24/2024 , Expires: 05/25/2024 Start: 02-24-2024 End: 05-25-2024 IDM PANEL ADULT [facility] Work Phone: Comment on above: Expected: 02/24/2024 , Expires: 05/25/2024 Start: 02-24-2024 End: 05-25-2024 IMMUNOGLOBULINS,IGG,IGA,I GM IMMUNOGLOBULINS,IGG,IGA ,IGM Lab Routine Diffuse large B-cell lymphoma of lymph nodes of multiple regions (HCC) Expected: 02/24/2024, Expires: 05/25/2024 [facility] Work Phone: Comment on above: Expected: 02/24/2024 , Expires: 05/25/2024 Start: 02-24-2024 End: 05-25-2024 Lactate dehydrogenase [Enzymatic activity/volume] in Serum or Plasma LACTATE DEHYDROGENASE Lab Routine Diffuse large B-cell lymphoma of lymph nodes of multiple regions (HCC) Expected: 02/24/2024, Expires: 05/25/2024 [facility] Work Phone: Comment on above: Expected: 02/24/2024 , Expires: 05/25/2024 Start: 02-24-2024 End: 05-25-2024 Magnesium [Mass/volume] in Serum or Plasma MAGNESIUM Lab Routine Diffuse large B-cell lymphoma of lymph nodes of multiple regions (HCC) Expected: 02/24/2024, Expires: 05/25/2024 [facility] Work Phone: Comment on above: Expected: 02/24/2024 , Expires: 05/25/2024 Start: 02-24-2024 End: 05-25-2024 PT panel - Platelet poor plasma by Coagulation assay PROTHROMBIN TIME Lab Routine Personal history of diseases of blood and blood-forming organs Diffuse large B-cell lymphoma of lymph nodes of multiple regions (HCC) Expected: 02/24/2024, Expires: 05/25/2024 [facility] Work Phone: Comment on above: Expected: 02/24/2024 , Expires: 05/25/2024 Start: 02-24-2024 End: 05-25-2024 TYPE + SCREEN TYPE + SCREEN Blood Bank Routine Diffuse large B-cell lymphoma of lymph nodes of multiple regions (HCC) Expected: 02/24/2024, Expires: 05/25/2024 [facility] Work Phone: Comment on above: Expected: 02/24/2024 , Expires: 05/25/2024 Start: 02-24-2024 End: 02-24-2024 ambulatory Hematology/Oncology Comment on above: DLBCL PLEASE PAGE [id number] WHEN THE PATIENT CHECKS IN Start: 02-24-2024 End: 02-24-2024 Nursing evaluation of patient and report Hematology/Oncology Comment on above: PLEASE PAGE [id number] WHEN THE PATIENT CHECKS IN Start: 02-18-2024 End: 05-19-2024 Magnesium [Mass/volume] in Serum or Plasma MAGNESIUM Lab Routine Diffuse large B-cell lymphoma of lymph nodes of multiple regions (HCC) Expected: 02/18/2024, Expires: 05/19/2024 [facility] Work Phone: Comment on above: Expected: 02/18/2024 , Expires: 05/19/2024 Start: 01-20-2024 End: 02-18-2025 PET+CT Guidance for localization of tumor of Skull base to mid-thigh-- W 18F-FDG IV NM PET/CT SKULL-THIGH SUBSEQUENT Radiology Routine 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) Expected: 01/20/2024 (Approximate), Expires: 02/18/2025 [facility] Work Phone: Comment on above: Expected: 01/20/2024 (Approximate), Expires: 02/18/2025 Start: 12-25-2023 End: 03-25-2024 [id number] [Mass/volume] in Serum or Plasma [facility] Work Phone: Comment on above: Expected: 12/25/2023 , Expires: 03/25/2024 Start: 11-03-2023 Advance Directive Discussion Advance Directive Discussion [facility] Start: 11-03-2023 Behavioral Health Screening Behavioral Health Screening [facility] Start: 11-03-2023 Depression Assessment Depression Ass essment [facility] Start: 10-28-2023 End: 01-27-2024 CBC W Auto Differential panel - Blood CBC + DIFF Lab Routine 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) Expected: 10/28/2023, Expires: 01/27/2024 [facility] Work Phone: Comment on above: Expected: 10/28/2023 , Expires: 01/27/2024 Start: 10-28-2023 End: 01-27-2024 Comprehensive metabolic 2000 panel - Serum or Plasma COMP METABOLIC PANEL Lab Routine 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) Expected: 10/28/2023, Expires: 01/27/2024 [facility] Work Phone: Comment on above: Expected: 10/28/2023 , Expires: 01/27/2024 Start: 08-05-2023 End: 10-05-2023 CBC W Auto Differential panel - Blood CBC + DIFF Lab Routine 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) Expected: 08/05/2023, Expires: 10/05/2023 [facility] Work Phone: Comment on above: Expected: 08/05/2023 , Expires: 10/05/2023 Start: 08-05-2023 End: 10-05-2023 Comprehensive metabolic 2000 panel - Serum or Plasma COMP METABOLIC PANEL Lab Routine 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) Expected: 08/05/2023, Expires: 10/05/2023 [facility] Work Phone: Comment on above: Expected: 08/05/2023 , Expires: 10/05/2023 Start: 07-22-2023 End: 09-21-2023 Basic metabolic 2000 panel - Serum or Plasma BASIC METABOLIC PNL Lab Routine 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) Expected: 07/22/2023 (Approximate), Expires: 09/21/2023 [facility] Work Phone: Comment on above: Expected: 07/22/2023 (Approximate), Expires: 09/21/2023 Start: 07-22-2023 End: 09-21-2023 CBC W Auto Differential panel - Blood CBC + DIFF Lab Routine 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) Expected: 07/22/2023 (Approximate), Expires: 09/21/2023 [facility] Work Phone: Comment on above: Expected: 07/22/2023 (Approximate), Expires: 09/21/2023 Start: 07-22-2023 End: 09-21-2023 Urate [Mass/volume] in Serum or Plasma URIC ACID BLOOD Lab Routine 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) Expected: 07/22/2023 (Approximate), Expires: 09/21/2023 [facility] Work Phone: Comment on above: Expected: 07/22/2023 (Approximate), Expires: 09/21/2023 Start: 07-04-2023 Influenza vaccination C [facility] Start: 06-03-2023 Influenza vaccination Flu vacc ine (Season Ended) [facility] Start: 05-13-2023 End: 07-13-2023 [id number] [Mass/volume] in Serum or Plasma [facility] Work Phone: Comment on above: Expected: 05/13/2023 , Expires: 07/13/2023 Start: 05-13-2023 End: 07-13-2023 Chronic hepatitis differentiation between hepatitis B and C virus panel - Serum or Plasma [facility] Work Phone: Comment on above: Expected: 05/13/2023 , Expires: 07/13/2023 Start: 04-16-2023 End: 04-16-2023 Patient encounter procedure 04/16/2023 Office Visit Oncology Emelia Gonzalez MD [address] [place] [address] [facility] Part of [facility] Start: 04-02-2023 Annual Wellness Visi t (AWV) Annual Wellness Visit (AWV) [facility] Start: 11-03-2022 ADVANCE DIRECTIVE DISCUSSION ADVANCE DIRECTIVE DISCUSSION [facility] Start: 11-03-2022 DEPRESSION ASSESSMENT DEPRESSION ASS ESSMENT [facility] Start: 04-05-2022 Thyroid stimulating hormone measurement TSH testing [facility] Work Phone: Start: 2021 Abdominal aortic ane urysm screening [facility] Start: 2021 PNEUMOCOCCAL: 65+ (1 - PCV) PNEUMOCOCCAL: 65+ (1 - PCV) [facility] Start: 07-04-2021 Influenza vaccination Flu vacc ine (Season Ended) [facility] Work Phone: Start: 04-18-2021 End: 04-18-2021 Patient encounter procedure 04/18/2021 Office Visit Oncology Maritza Mendoza MD [address] [place] [address] [facility] Part of [facility] Start: 07-04-2020 Influenza vaccination Flu vacc ine (Season Ended) [place], [place] Start: 04-19-2020 End: 04-19-2020 Office Visit 04/19/2020 Office Visit Oncology Maritza Mendoza MD [address] [place] [address] [facility] of [facility] Start: 02-17-2020 TSH Qn TSH testing [place], [place] Start: 2016 RSV Vaccine (1 - 1-d ose 60+ series) RSV Vaccine (1 - 1-dose 60+ series) [facility] Start: 2016 RSV Vaccine (1 - Ris k 60-74 years 1-dose series) RSV Vaccine (1 - Risk 60-74 years 1-dose series) [facility] Start: 2011 PROSTATE CANCER SCRE ENING DISCUSSION PROSTATE CANCER SCREENING DISCUSSION [facility] Start: 2011 Prostate specific an tigen measurement Prostate Cancer Screening Discussion [facility] Start: 2006 Prostate specific an tigen measurement PROSTATE CANCER SCREENING DISCUSSION [facility] Start: 2006 Screening for malign ant neoplasm of colon Colon cancer screen colonoscopy [place], [place] Start: 2006 Screening for malign ant neoplasm of lung Lung Cancer Screening [facility] Start: 2006 Shingles Vaccine (1 of 2) Barrera gles Vaccine (1 of 2) [place] Start: 2006 SHINGRIX VACCINE (1 of 2) BARRERA GRIX VACCINE (1 of 2) [facility] Start: 2001 COLOGUARD (FIT-DNA) COLOGUARD (FIT-D NA) [facility] Start: 2001 Colonoscopy COLONOSCOPY [facility] Start: 2001 COLORECTAL CANCER SCREENING COLORECTAL CANCER SCREENING [facility] Start: [address] COLONOGRAPHY [facility] Start: 2001 FECAL OCCULT BLOOD FECAL OCCULT BLOO D [facility] Start: 2001 Screening for malign ant neoplasm of colon [facility] Start: 2001 SIGMOIDOSCOPY SIGMOIDOSCOPY [facility] Start: 1996 Lipid panel [facility] Start: 1991 Lipid 1996 panel - S bucky or Plasma Lipid Screening [facility] Start: 1991 Lipid panel Lipid Screening [facility] Start: 1991 LIPID SCREEN LIPID SCREEN [facility] Start: 1975 DTaP/Tdap/Td vaccine (1 - Tdap) DTaP/Tdap/Td vaccine (1 - Tdap) [facility] Start: 1975 Shingles vaccine (1 of 2) Barrera gles vaccine (1 of 2) [facility] Start: 1975 SHINGRIX VACCINE (1 of 2) BARRERA GRIX VACCINE (1 of 2) [facility] Start: 1975 Third diphtheria, te tanus and acellular pertussis (DTaP) vaccination TDAP (ADULT) [facility] Start: 1975 Urine microalbumin profile [facility] Start: 1975 Zoster vaccine hzv l michael for subcutaneous use ZOSTER (SHINGLES) VACCINE (1 of 2) [facility] Start: 1974 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 Disease Visit Annual PCP Team Chronic Disease Visit [facility] Start: 1974 Anxiety Screening Anxiety Screening [facility] Start: 1974 Depression Screening Depression Scre ening [facility] Start: 1974 Hepatitis C screening Hepatitis C sc reen [facility] Start: 1974 HEPATITIS C SCREENING HEPATITIS C SC SIMONE [facility] Start: 1971 HIV screening HIV screen [facility] [place], [place] Start: 1968 COVID-19 Vaccine (1) COVID-19 Vaccin e (1) [facility] [employer] Phone: Start: 1968 Depression Screen Depression Screen [facility] Start: 1962 Pneumococcal 0-64 ye ars Vaccine (1 of 3 - PCV13) Pneumococcal 0-64 years Vaccine (1 of 3 - PCV13) [place] Start: 1962 Pneumococcal 0-64 ye ars Vaccine (1 of 4 - PCV13) Pneumococcal 0-64 years Vaccine (1 of 4 - PCV13) [facility] Phone: Start: 1962 Pneumococcal 65+ yea rs Vaccine (1 - PCV) Pneumococcal 65+ years Vaccine (1 - PCV) [facility] Start: 1962 Pneumococcal vaccination PNEUM OCOCCAL VACCINE SERIES (1 of 2 - PCV) [facility] Start: 1962 Pneumococcal Vaccine : 65+ (1 - PCV) Pneumococcal Vaccine: 65+ (1 - PCV) [facility] Start: 1962 Pneumococcal Vaccine : 65+ (1 of 2 - PCV) Pneumococcal Vaccine: 65+ (1 of 2 - PCV) [facility] Start: 1962 PNEUMOCOCCAL: 65+ (1 - PCV) PNEUMOCOCCAL: 65+ (1 - PCV) [facility] Start: 1961 COVID-19 VACCINE (#1) COVID-19 VACCI NE (#1) [facility] Start: 03-18-1957 COVID-19 Vaccine (#1) COVID-19 Vacci ne (#1) [facility] Start: 1956 ABDOMINAL AORTIC ANE URYSM SCREENING ABDOMINAL AORTIC ANEURYSM SCREENING [facility] Start: 1956 Abdominal aortic ane urysm screening Abdominal Aortic Aneurysm Screening [facility] Start: 1956 Hepatitis C screening Hepatitis C sc reen [place] Start: 1956 Tetanus vaccination TETANUS [facility] Start: 1956 Thyroid stimulating hormone measurement TSH [facility] CBC AND ELECTRONIC DIFF CBC AND ELECTRONIC DIFF Lab Routine Diffuse large B-cell lymphoma, unspecified body region Ordered: 01/28/2024 [facility] Work Phone: Comment on above: Ordered: 01/28/2024 CBC W Auto Different ial panel - Blood COMPLETE BLOOD COUNT AND DIFFERENTIAL Lab Routine Diffuse large B-cell lymphoma of lymph nodes of multiple regions (HCC) 04/23/2024 7:53 AM EDT [facility] End: 04-23-2025 CBC W Auto Differential panel - Blood COMPLETE BLOOD COUNT AND DIFFERENTIAL Lab Routine History of engineered cell therapy infusion Once per week for 2 Occurrences starting 04/23/2024 until 04/23/2025 [facility] Comment on above: Once per week for 2 Occurrences starting 04/23/2024 until 04/23/2025 CELLULAR THERAPY COLLECTION AND PROCESSING CELLULAR THERAPY COLLECTION AND PROCESSING Procedures Routine Diffuse large B-cell lymphoma of lymph nodes of multiple regions (HCC) Ordered: 03/02/2024 [facility] Work Phone: Comment on above: Ordered: 03/02/2024 End: 04-23-2025 Comprehensive metabolic 2000 panel - Serum or Plasma COMPREHENSIVE METABOLIC PANEL Lab Routine History of engineered cell therapy infusion Once per week for 2 Occurrences starting 04/23/2024 until 04/23/2025 [facility] Comment on above: Once per week for 2 Occurrences starting 04/23/2024 until 04/23/2025 CT Guidance for radi ation treatment of Unspecified body region CT SIM PLANNING RADIATION ONCOLOGY Radiology Routine Follicular lymphoma grade IIIa, unspecified body region (HCC) Ordered: 03/15/2024 [facility] Work Phone: Comment on above: Ordered: 03/15/2024 End: 02-17-2025 ECG COMPLETE ECG COMPLETE ECG Routine Diffuse large B-cell lymphoma of lymph nodes of multiple regions (HCC) 1 Occurrences starting 02/18/2024 until 02/17/2025 [facility] Work Phone: Comment on above: 1 Occurrences starti ng 02/18/2024 until 02/17/2025 End: 05-19-2024 Echocardiography ECHO Cardiology Routine Non-Hodgkin lymphoma of lymph nodes of multiple regions, unspecified non-Hodgkin lymphoma type (HCC) DE DIOS (dyspnea on exertion) 1 Occurrences starting 05/19/2023 until 05/19/2024 [facility] Work Phone: Comment on above: 1 Occurrences starti ng 05/19/2023 until 05/19/2024 End: 02-17-2025 Echocardiography ECHO Cardiology Routine Diffuse large B-cell lymphoma of lymph nodes of multiple regions (HCC) Encounter for monitoring cardiotoxic drug therapy 1 Occurrences starting 02/18/2024 until 02/17/2025 [facility] Work Phone: Comment on above: 1 Occurrences starti ng 02/18/2024 until 02/17/2025 IR CENTRAL CATHETER PLACEMENT IR CENTRAL CATHETER PLACEMENT Radiology Routine Diffuse large B-cell lymphoma of lymph nodes of multiple regions (HCC) Ordered: 02/18/2024 [facility] Work Phone: Comment on above: Ordered: 02/18/2024 End: 04-23-2025 Magnesium [Mass/volume] in Serum or Plasma MAGNESIUM Lab Routine History of engineered cell therapy infusion Once per week for 2 Occurrences starting 04/23/2024 until 04/23/2025 [facility] Work Phone: Comment on above: Once per week for 2 Occurrences starting 04/23/2024 until 04/23/2025 End: 10-01-2024 NM PET/CT SKULL-THIGH SUBSEQUENT NM PET/CT SKULL-THIGH SUBSEQUENT Radiology Routine 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) 1 Occurrences starting 09/02/2023 until 10/01/2024 [facility] Work Phone: Comment on above: 1 Occurrences starti ng 09/02/2023 until 10/01/2024 OUTSIDE SURG PATH SL REMI REVIEW OUTSIDE SURG PATH SLIDE REVIEW Lab Routine Non-Hodgkin lymphoma of lymph nodes of multiple regions, unspecified non-Hodgkin lymphoma type (HCC) Ordered: 12/22/2023 [facility] Work Phone: Comment on above: Ordered: 12/22/2023 End: 03-19-2025 PET+CT Guidance for localization of tumor of Skull base to mid-thigh-- W 18F-FDG IV NM PET/CT SKULL-THIGH SUBSEQUENT Radiology Routine Diffuse large B-cell lymphoma, unspecified body region (HCC) 1 Occurrences starting 02/18/2024 until 03/19/2025 [facility] Work Phone: Comment on above: 1 Occurrences starti ng 02/18/2024 until 03/19/2025 End: 05-06-2025 PET+CT Guidance for localization of tumor of Skull base to mid-thigh-- W 18F-FDG IV NM PET/CT SKULL-THIGH SUBSEQUENT Radiology Routine Diffuse large B-cell lymphoma, unspecified body region (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 1 Occurrences starting 04/06/2024 until 05/06/2025 [facility] Work Phone: Comment on above: 1 Occurrences starti ng 04/06/2024 until 05/06/2025 End: 07-17-2025 PET+CT Guidance for localization of tumor of Skull base to mid-thigh-- W 18F-FDG IV NM PET/CT SKULL-THIGH SUBSEQUENT Radiology Routine Diffuse large B-cell lymphoma of lymph nodes of multiple regions (HCC) 1 Occurrences starting 06/17/2024 until 07/17/2025 [facility] Work Phone: Comment on above: 1 Occurrences starti ng 06/17/2024 until 07/17/2025 STAFF REVIEW STAFF REVIEW Lab Routine Diffuse large B-cell lymphoma of lymph nodes of multiple regions (HCC) 04/23/2024 7:53 AM EDT [facility] End: 03-19-2025 XR Chest PA and Lateral XR CHEST 2V FRONTAL/LAT Radiology Routine Diffuse large B-cell lymphoma of lymph nodes of multiple regions (HCC) 1 Occurrences starting 02/18/2024 until 03/19/2025 [facility] Work Phone: Comment on above: 1 Occurrences starti ng 02/18/2024 until 03/19/2025 [facility] Immunizations Immunization Date Immunization Notes Care Provider Fa cility NEGATED: Highlighted row has not occurred!12-09-2023 influenza virus vaccine, unspecified formulation Chiquita MIGUEL [facility] [place] Payers Date Payer Category Payer Self-pay 2021 Medicare [id number] 2021 Private Health Insurance [id number] 2021 Unknown GENERIC PAYOR ME DICARE SUPPLEMENT [id number] 2021-Present [address] [address] [place] [address] [id number] 2021 Medicare [id number] 2021 Private Health Insurance CLI [id number] 2017 Private Health Insurance [facility] xxxxxxxxx 2017-Present [phone] [address] [place] [address] xxxxxxxxx [id number] 2017 Private Health Insurance [facility] PLU [id number] 2017-Present [phone] [address] [place] [address] [id number] 2017 Private Health Insurance [facility] PLU [id number] 2017-Present [phone] [address] [place] [address] [id number] 1956 Unknown [id number] 1956 Unknown [id number] 1956 Unknown [id number] 1956 Unknown [id number] 1956 Unknown [id number] 1956 Unknown [id number] 1956 Unknown [id number] 1956 Unknown [id number] Social History Date Type Detail Facility Start: 02-24-2019 End: 12-30-2023 Tobacco smoking status MEIS Former smoker [facility] Start: 11-03-1974 End: 11-03-2009 History of tobacco use Current smoker [place], [place] Start: 11-03-1974 End: 11-03-2009 History of tobacco use Cigarette Smoker [place] Start: 02-24-2019 End: 04-17-2022 Alcohol intake Not Asked [place], [place] Start: 1955 Sex Assigned At Not on file [place], [place] Exposure to SARS-CoV -2 (event) Unable to assess [place] Start: 02-24-2019 End: 12-30-2023 Tobacco use and exposure Never used [facility] Tobacco smoking status Never [facility] Start: 05-13-2023 End: 06-17-2024 Sex Assigned At Male [facility] Catrina Verde [facility] History of tobacco use Passive smoker [facility] Start: 05-13-2023 End: 09-02-2023 Alcohol intake Ex-drinker (finding) [facility] Start: 05-13-2023 End: 06-17-2024 History of Social function [facility] Start: 1955 Sex Assigned At Male F [facility] Start: 12-30-2023 End: 07-19-2024 Alcohol intake Current drinker of alcohol (finding) [facility] Start: 12-30-2023 Alcohol Comment beer occ Toi [facility] Medical Equipment Procedure Code Equipment Code Equipment Origin al Text Equipment Identifier Dates Port-05/28/2023 [id number] Start: 05-28-2023 Comment on above: Description: Placed @ [facility] Functional Status Date Assessment Result Facility 06-08-2024 Functional Status N/A [facility] [place] 04-29-2023 Functional Status N/A [facility] Clinical Notes 02-02-2023 to 09-15-2024 Shae Tirado MA - 09/08/2024 8:58 AM ESTTelephone Encounter - Ivania Jackman RN - 08/30/2024 10:25 AM EDTTelephone Encounter - Ivania Jackman RN - 08/30/2024 10:25 AM EDT Note Date & Type Note Facility 09-15-2024 Note [facility] 09-08-2024 Note [facility] 09-08-2024 History of Presen t illness [...] 2024 8:58 AM documented in this encounter [facility] 08-30-2024 Telephone encount er Note Pt's spouse notified and verbalizes understanding. Ivania Jackman RN [facility] Work Phone: 08-30-2024 Miscellaneous Notes Formattin g [...] Ivania Jackman RN documented in this encounter [facility] 08-30-2024 Telephone encount er Note Agree that he should take Paxlovid. Mack Adams [facility] 08-30-2024 Telephone encount er Note Pt testing positive for COVID earlier this morning. ER physician has prescribed Paxlovid. Spouse wants to check and make sure he is ok to take this from an oncology standpoint. 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) Procedures NM PET/CT SKULL-THIGH SUBSEQUENT PET IMAGING CT ATTENUATION SKULL BASE MID-THIGH Michael Boykin MD [address] [place] [address] Molecular [facility] Functional Imaging [address] [place] [address] Referral ID Status Reason Start Date Expiration Date V isits Requested Visits Authorized [id number] Closed Auto-Generate d Referral 09/02/2023 10/01/2024 1 1 [facility]15[facility] History of Present illness Narrative* Michael Boykin MD - 07/18/2024 7:49 PM EDT PATIENT NAME: Katia Shaikh DATE: 07/19/2024 PRIMARY CARE PHYSICIAN: No PCP OTHER PHYSICIANS: Dr. Rivera, Dr. Emelia Gonzalez ([facility] [place]), Dr. Niesha Galdamez, Dr. Varela Portions of [...] PATHOLOGY: 12/17/2023 Right inguinal lymph node biopsy ([facility]: Mature B-cell non-Hodgkin lymphoma [facility] Pathology:-Aggressive large B-cell lymphoma, favor germinal center immunophenotype 05/07/2023 Right inguinal lymph node biopsy [facility]: Diffuse large B-cell lymphoma [facility] Pathology: [...] Criteria score : 4 04/24/2023 PET scan ([facility]) Above the diaphragm the patient has [...] pathology was read as DLBCL at [facility]. Apr 2023: PET/CT with FDG [...] elevation). If symptoms worsen would refer to [facility] physical therapy lymphedema clinic. 2. Acquired hypothyroidism [...] indicated. 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) Non-Hodgkin lymphoma of lymph nodes of multiple regions, unspecified non-Hodgkin lymphoma type (HCC) Acquired hypothyroidism Unspecified hypothyroidism documented in this encounter [facility]09-04-2024 History of Present illness Narrative* Ivania Juarez, [...] PATIENT PRESENTS WITH AN IMPLANTABLE OR ATTACHED FACILITIES ASSISTANT: No CREATININE: Creatinine Date Value Ref Range [...] can be found usingthis link: [email or web address] SIGNATURE: RT Kerwin(R) PATIENT NAME: Katia Shaikh DATE: July 07, 2024 TIME: 12:21 PM PAGER/CONTACT #: [facility] History of Present illness Narrative* Michael Boykin MD - 06/16/2024 3:46 PM EDT PATIENT NAME: Katia Shaikh DATE: 06/17/2024 PRIMARY CARE PHYSICIAN: No PCP OTHER PHYSICIANS: Dr. Rivera, Dr. Emelia Gonzalez ([facility] [place]), Dr. Niesha Galdamez, Dr. Varela Portions of [...] 2024. He subsequently underwent CAR-T therapy at [facility] on 04/06/2024. He was discharged on [...] PATHOLOGY: 12/17/2023 Right inguinal lymph node biopsy ([facility]) [facility]: Mature B-cell non-Hodgkin lymphoma [facility] Pathology:-Aggressive large B-cell lymphoma, favor germinal center immunophenotype 05/07/2023 Right inguinal lymph node biopsy [facility] [facility] Diffuse [facility] B-cell [facility] Pathology: [...] Criteria score : 4 04/24/2023 PET scan ([facility]) Above the diaphragm the patient has [...] pathology was read as DLBCL at [facility]. Apr 2023: PET/CT with FDG [...] stocking. If symptoms worsen would refer to [facility] physical therapy lymphedema clinic. 2. Acquired hypothyroidism [...] indicated. Michael Boykin MD documented in this encounterPremier Health08-06-2024 NoteGeneral Surgery Office/Clinic Note Chief Complaint consultation [...] virus vaccine, inactivated - Not Given Patient RefusesSumma HealthComment on above:Result Comment: Electronically Signed By: MIGUEL LOFTON, Chiquita Mas\Date and Time Signed: 06/08/24 14:22 [id number] Telephone encounter Note* Telephone Encounter - Mitra Amaro LISW - 06/02/2024 3:36 PM EDT SOCIAL WORK FOLLOW UP NOTE: [facility] Date of service:06/02/2024 Katia Terrazas Hawa is being seen for a follow up social work visit. Today's visit includes: spouse- Jennifer TOPICS ADDRESSED: finances I received a call Thursday 05/31 regarding incorrect billing totoaling 8k per patients Jennifer. Jennifer has contacted Medicare and our [facility] billing dept with no resolve. I have escalated to [facility], manager knowledge Radhika Blanco and additional BMT oracle database administrator. I called patient today and explained [...] in Care Team tab: Yes FREDA Cabrera [facility] Work Phone: [phone]) 824-479207-31-2024 Miscellaneous Notes* Telephone Encounter - Mitra Amaro [...] resolve. I have escalated to [facility], manager knowledge Radhika Blanco and additional BMT oracle database administrator. I called patient today and explained [...] tab: Yes FREDA Cabrera documented in this encounterPremier Health07-25-2024 Telephone encounter Note * Telephone Encounter - Aurora Alvarez - 05/27/2024 2:13 PM EDT Spoke to patient & scheduled him on 06/17/2024 for labs at 2:45 pm & BRM at 3 pm. Aurora Alvarez [facility]07-25-2024 Miscellaneous Notes* Telephone Encounter - Aurora Alvarez [...] best that he see you at [facility], or see me at our [place] office? I can then ask our nurse [...] 200 on 2 reads. documented in this encounterPremier Health07-18-2024 Telephone encounter Note * Telephone Encounter - Emma Mendoza - 05/20/2024 3:02 PM EDT Roverto called back checking on status of appt. He claims he was supposed to have an appt at the end of May. I told him what was happening and that we would call him back soon with an appt date and time. [facility]07-16-2024 Telephone encounter Note* Telephone Encounter - Yesi White HUC - 05/18/2024 7:32 AM EDT Good Morning Maria Esther, Please Advise on what date and time to put this Patient on BR's schedule in Mid June. Thank you! MIRIAN Garcia [facility]07-15-2024 Telephone encounter Note* Telephone Encounter - Ivania Jackman RN - 05/17/2024 3:13 PM EDT Clerical: Pt will need to see BRM for labs and RV in june. Please schedule and call pt w/ theappointment. Thanks! Ivania Jackman RN [facility] Work Phone: [phone] Telephone encounter Note* Telephone Encounter - Ivania [...] main campus, or see me at our [place] office? I can then ask our nurse [...] count is above 200 on 2 reads. 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 I have updated the nurse career guidance technician for additional assistance. I will also speak [...] thought he would be referred to the theatre program director of the [employer] for travel related financial assistance but was not referred. I have updated the nurse career guidance technician for additional assistance. I will also speak [...] patient to local cancer center manager social in [place] for ongoing care as needed.. Transfer care back to Dr. Boykin in [place] FREDA Cabrera documented in this encounterPremier Health07-11-2024 Nurse Note* Dunia Gipson OCCA - 05/13/2024 11:10 AM EDT Additional intake questions: Has the patient had fever, nausea, vomiting, diarrhea, constipation, fatigue for > 1 week? No Does the patient have a decreased appetite? No Does patient want to see a Trimmer Machine? No (yes to any of above refer patient to schedulers for dietitian appointment) ) Does patient have any new or increased numbness or tingling of extremities? No Is patient interested in fertility information? No Does patient need any prescription refills? No Does patient have an advanced directive in place? No [facility]07-11-2024 Nurse Note* Dunia Gipson OCCA - 05/13/2024 11:10 AM EDT Additional intake questions: Has the patient had fever, nausea, vomiting, diarrhea, constipation, fatigue for > 1 week? No Does the patient have a decreased appetite? No Does patient want to see a Trimmer Machine? No (yes to any of above refer patient to schedulers for dietitian appointment) ) Does patient have any new or increased numbness or tingling of extremities? No Is patient interested in fertility information? No Does patient need any prescription refills? No Does patient have an advanced directive in place? No documented in this encounterPremier Health07-11-2024 History of Present illness Narrative* Niesha Galdamez MD - 05/13/2024 11:00 AM EDT Images from the original note were not included. [facility] DEPARTMENT OF HEMATOLOGY AND MEDICAL ONCOLOGY DIAGNOSIS: [...] pathology was read as DLBCL at [facility]. Apr 2023: PET/CT with FDG [...] from [place] Hypothyroidism SOCIAL HISTORY: Lives in [place], [place] to Jennifer who is present today [...] (k/uL) Date Value 05/13/2024 0.91 (L) Abs [place] (k/uL) Date Value 05/13/2024 0.31 Abs Eosin [...] biopsy was read as DLBCL at [facility] but when reviewed by [facility] [...] transfer care back to Dr. Boykin in [place]. I recommend follow up at 2 month [...] colonoscopy Niesha Galdamez MD Associate Staff Physician [facility] Cancer [address] [place] [address] Pager: [phone] documented in this encounterPremier Health07-11-2024 NoteOhio[facility]07-11-2024 Instructions* Patient Instructions* Dylan Porter MD - 05/13/2024 9:24 AM EDT Date of cellular therapy infusion: 04/06/2024 Months from CAR T-cell therapy 6 8 10 12 Approximate month & year 10/2024 Inactivated influenza vaccine every Fall All[employer]ic Prevnar1 Hib2 Tdap3 Twinrix4 Polio6 Prevnar Hib Td7 Twinrix Polio Prevnar Hib Td Polio MenB8 MenACWY9 Prdgegms00 MenB MenACWY Twinrix Shingrix 1Prevnar = 20-valent [...] is ? 50 years documented in this encounterPremier Health07-11-2024 NoteOhio[facility]07-11-2024 History of Present illness Narrative* Dylan [...] Polio Prevnar Hib Td Polio MenB8 MenACWY9 Ddetqskf30 MenB MenACWY Twinrix Shingrix 1Prevnar = 20-valent [...] 2024 TIME: 9:21 AM documented in this encounterPremier Health07-05-2024 History of Present illness Narrative* Esther Rivera [...] SIGNATURE: Esther Rivera RN PATIENT NAME: Katia Shiakh DATE: May 07, 2024 TIME: 12:06 PM [...] 1206 PATIENT DISCHARGED TO: Ambulatory patient, left CT department area. A Diagnostic radioactive procedure has taken place, with no further precautions necessary other than routine body substance precautions. More information regarding radiation safety can be found usingthis link: [email or web address]%20Nuclear%20Medicine%[email or web address] SIGNATURE: RT Kerwin(R) PATIENT NAME: Katia Shaikh DATE: May 07, 2024 TIME: 12:18 PM PAGER/CONTACT #: documented in this encounterPremier Health07-05-2024 NoteOhio[facility]07-05-2024 NoteOhio[facility]07-01-2024 Telephone encounter Note* Telephone Encounter - [...] on 05/[address] Galdamez. Katia W Hawa verbalizes understanding of weekly lab draws and the [facility] call procedure. Danielle Lazaro RN [facility]07-01-2024 Miscellaneous Notes* Telephone Encounter - Danielle Lazaro [...] understanding of weekly lab draws and the [facility] call procedure. Danielle Lazaro RN documented in this encounterPremier Health06-28-2024 Telephone encounter Note * Telephone Encounter - Danielle Lazaro RN - 04/30/2024 2:17 PM EDT 1340: Spoke with Jennifer, patient's spouse about lab work needed. Patient's spouse was not aware of lab work needed weekly. RN advised that standing lab work is in the system and they can go to the local [facility] to have the labs drawn. RN advised that they will need them the following week as well. She verbalized understanding. Danielle Lazaro RN [facility]06-28-2024 Miscellaneous Notes* Telephone Encounter - Danielle Lazaro RN - 04/30/2024 2:17 PM EDT 1340: Spoke with Jennifer, patient's spouse about lab work needed. Patient's spouse was not aware of lab work needed weekly. RN advised that standing lab work is in the system and they can go to the local [facility] to have the labs drawn. RN advised that they will need them the following week as well. She verbalized understanding. Danielle Lazaro RN documented in this encounterPremier Health06-21-2024 Instructions* Patient Instructions* Nabila Chery APRN.CNP - [...] lab here that day). documented in this encounterPremier Health06-21-2024 History of Present illness Narrative* Nabila Chery [...] example Our national bird is the bald stebbins. 1-YES 10. Count backwards from 100 by [...] which included preparing to see the patient, [id number] patient care, completing clinical documentation, obtaining and/or [...] needed Nabila Chery APRN.MIRACLE documented in this encounterPremier Health06-21-2024 NoteOhio[facility]06-21-2024 Nurse Note* Kaden Brizuela LPN - 04/23/2024 8:53 AM EDT Additional intake questions: Has the patient had fever, nausea, vomiting, diarrhea, constipation, fatigue for > 1 week? No Does the patient have a decreased appetite? No Does patient want to see a Trimmer Machine? No (yes to any of above refer [...] Center Electronically Signed By: Kaden Brizuela LPN [facility]06-21-2024 Nurse Note* Kaden Brizuela LPN - 04/23/2024 8:53 AM EDT Additional intake questions: Has the patient had fever, nausea, vomiting, diarrhea, constipation, fatigue for > 1 week? No Does the patient have a decreased appetite? No Does patient want to see a Trimmer Machine? No (yes to any of above refer [...] By: Kaden Brizuela LPN documented in this encounterPremier Health06-15-2024 NoteOhio[facility]06-14-2024 NoteOhio[facility]06-14-2024 NoteOhio[facility]06-13-2024 NoteOhio[facility]06-13-2024 Note [facility]06-12-2024 Telephone encounter Note* Telephone Encounter - Cecil Esquivel MD - 04/14/2024 6:41 PM EDT [facility] Hematology/Oncology Fellow After Hours Phone Call [...] MD Hematology/Oncology Fellow PGY-4 04/14/2024 6:41 PM [facility] Work Phone: [phone]) 865-311106-12-2024 Miscellaneous Notes* Telephone Encounter - Cecil Esquivel MD - 04/14/2024 6:41 PM EDT [facility] Hematology/Oncology Fellow After Hours Phone Call [...] PGY-4 04/14/2024 6:41 PM documented in this encounterPremier Health06-12-2024 NoteOhio[facility]06-12-2024 NoteOhio[facility]06-12-2024 NoteOhio[facility]06-11-2024 NoteOhio[facility]06-10-2024 Note [facility]06-10-2024 NoteOhio[facility]06-09-2024 Note[facility]06-09-2024 Note[facility] 04-11-2024 NoteHNO ID: [id number] Author: NOTE, INTERFACE, ? Service: ? Author Type: ? Type: Progress Notes Filed: 04/11/2024 02:38 Note Text: Epic Scheduled Downtime: 04/11/2024 1:00:00 AM to 04/11/2024 2:26:00 [facility]06-08-2024 NoteOhio[facility]06-08-2024 Note [facility]06-08-2024 NoteHNO ID: [id number] Author: NOTE, INTERFACE, ? Service: ? Author Type: ? Type: Progress Notes Filed: 04/10/2024 03:23 Note Text: Epic Scheduled Downtime: 04/10/2024 1:00:00 AM to 04/10/2024 3:02:00 [facility]06-07-2024 NoteOhio[facility]06-07-2024 Note [facility]06-06-2024 NoteOhio[facility]06-06-2024 NoteOhio[facility]06-05-2024 Note[facility] 04-06-2024 NoteOhio[facility]05-30-2024 History of Present illness Narrative* Niesha Galdamez MD - 04/01/2024 9:30 AM EDT Images from the original note were not included. [facility] DEPARTMENT OF HEMATOLOGY AND MEDICAL ONCOLOGY DIAGNOSIS: [...] pathology was read as DLBCL at [facility]. Apr 2023: PET/CT with FDG [...] from [place] Hypothyroidism SOCIAL HISTORY: Lives in [place], [place] to Jennifer who is present today Retired from [employer] Likes car racing with his son Previous smoker Very active MEDICATIONS: Reviewed and updated in [employer]. PHYSICAL EXAM: VS: BP 126/67 Pulse 73 [...] Neut (k/uL) Date Value 03/09/2024 5.36 Abs Clearfield (k/uL) Date Value 03/09/2024 1.06 (H) Abs [...] and incisional biopsy was read asDLBCL at [facility] but when reviewed by [facility] [...] DC. Niesha Galdamez MD Associate Staff Physician [facility] Cancer [address], [facility] [place] [address] Pager: [phone] Date: April 01, 2024 documented in this encounterPremier Health05-30-2024 NoteOhio[facility]05-30-2024 Nurse Note* Dunai Gipson OCCA - 04/01/2024 9:18 AM EDT Additional intake questions: Has the patient had fever, nausea, vomiting, diarrhea, constipation, fatigue for > 1 week? No Does the patient have a decreased appetite? No Does patient want to see a Trimmer Machine? No (yes to any of above refer patient to schedulers for dietitian appointment) ) Does patient have any new or increased numbness or tingling of extremities? No Is patient interested in fertility information? No Does patient need any prescription refills? No Does patient have an advanced directive in place? No [facility]05-30-2024 Nurse Note* Dunia Gipson OCCA - 04/01/2024 9:18 AM EDT Additional intake questions: Has the patient had fever, nausea, vomiting, diarrhea, constipation, fatigue for > 1 week? No Does the patient have a decreased appetite? No Does patient want to see a Trimmer Machine? No (yes to any of above refer patient to schedulers for dietitian appointment) ) Does patient have any new or increased numbness or tingling of extremities? No Is patient interested in fertility information? No Does patient need any prescription refills? No Does patient have an advanced directive in place? No documented in this encounterPremier Health05-24-2024 History of Present illness Narrative* Priyanka Echols [facility] - 03/26/2024 12:42 PM EDT Images from the original note were not included. [facility] Department of Pharmacy Pharmacy Office Visit [...] 0.9 03/09/2024 Abs Neut 5.36 03/09/2024 Abs Clearfield 1.06 03/09/2024 Abs Eosin 0.38 03/09/2024 Abs [...] the care of this patient. Priyanka Echols [facility] Pager: [phone] March 26, 2024 12:42 PM documented in this encounterPremier Health05-24-2024 NoteOhio[facility]05-23-2024 History of Present illness Narrative* Ivania [...] 1228 PATIENT DISCHARGED TO: Ambulatory patient, left CT department area. A Diagnostic radioactive procedure has taken place, with no further precautions necessary other than routine body substance precautions. More information regarding radiation safety can be found usingthis link: [email or web address] 20Diagnostic%20Nuclear%20Medicine%20Procedures.[email or web address] SIGNATURE: Ivania Juarez RT(R) PATIENT NAME: Katia Shaikh DATE: March 25, 2024 TIME: 2:01 PM PAGER/CONTACT #: documented in this encounterPremier Health05-23-2024 NoteOhio[facility]05-20-2024 History of Present illness Narrative* Tristen [...] cell. Tristen Varela MD documented in this encounterPremier Health05-20-2024 NoteOhio[facility]05-20-2024 History of Present illness Narrative* Tristen Varela MD - 03/22/2024 12:00 AM EDT [facility] Radiation Oncology Department RADIATION ONCOLOGY - [...] Electronically Signed cc: Dr.Murphy Dr. Emelia Gonzalez ([facility] [place]), Dr. Niesha Galdamez documented in this encounterPremier Health05-20-2024 NoteOhio[facility]05-17-2024 NoteOhio[facility]05-17-2024 History of Present illness Narrative* Merced Gregorio LSW - 03/19/2024 3:57 PM EDT Patient appears on the [facility] First Time Radiation Treatment Report. Patient was assessed by FREDA Quiroz on 02/24/24. FREDA Sanchez-Elias Goals of Care Advance Directives are not on file. SIGNATURE: CURTIS Sanchez PATIENT NAME: Katia Shaikh DATE: March 19, 2024 TIME: 3:59 PM PAGER/CONTACT #: documented in this encounterPremier Health05-14-2024 [facility]05-14-2024 History of Present illness Narrative* Tristen Varela [...] prescribed. Tristen Varela MD documented in this encounterPremier Health05-13-2024 NoteOhio[facility]05-13-2024 History of Present illness Narrative* Tristen [...] large B-cell lymphoma however on review at [facility] felt to raul follicular grade 3 nontoxic follow-up. He underwent evaluation including referral to Dr. Castaneda, [facility]. Bendamustine plus Rituxan recommended. Patient started [...] improvement. He has been evaluated at [facility] with Dr. Castaneda, plan to proceed [...] AND PLAN: Quite some cancer hours from [place] and [employer] in the morning makes this order so [...] whose address you want to display, e.g., .[employer] EnergyR[1(where 1 is the provider ID). Niesha Galdamez [id number] [facility] [id number] documented in this encounterPremier Health05-13-2024 Nurse Note* Sandra Mayen RN - 03/15/2024 7:42 AM EDT Pacemaker/Defibrillator? No Previous Cancer(s)? No Previous Radiation? No Lupus/Scleroderma? No On body monitoring device? No Sandra Mayen RN [facility]05-13-2024 Nurse Note* Sandra Mayen RN - 03/15/2024 7:42 AM EDT Pacemaker/Defibrillator? No Previous Cancer(s)? No Previous Radiation? No Lupus/Scleroderma? No On body monitoring device? No Sandra Mayen RN documented in this encounterPremier Health05-13-2024 History of Present illness Narrative* Tristen Varela MD - 03/15/2024 12:00 AM EDT KATIA SHAIKH Mk [id number] 03/15/2024 [facility] Radiation Oncology Department SIMULATION NOTE DATE OF SIMULATION: 03/15/2024 THERAPIST: Jaqueline Pollockaine MACHINE: DalloulNW DIAGNOSIS: Follicular lymphoma grade IIIa, lymph nodes [...] / YONAS 44:21 PM documented in this encounterPremier Health05-13-2024 History of Present illness Narrative* Tristen Varela MD - 03/15/2024 12:00 AM EDT KATIA SHAIKH [id number] 03/15/2024 [facility] Department of Radiation Oncology Treatment Planning [...] Varela M.D. 49:31 AM documented in this encounterPremier Health05-13-2024 NoteOhio[facility]05-13-2024 NoteOhio[facility]05-11-2024 Telephone encounter Note* Telephone Encounter - Tabitha Albarran MD - 03/13/2024 11:32 AM EDT Patient calling with new onset unilateral (right) leg swelling. Advised to go to ED for DVT evaluation. Discussed risks delay in diagnosis of potential DVT (risk of PE). Tabitha Montana MD Hematology-Oncology Fellow Phone/Pager: [phone] Page me [facility] Work Phone: 1(115) 154-525505-11-2024 Miscellaneous Notes* Telephone Encounter - Tabitha Albarran MD - 03/13/2024 11:32 AM EDT Patient calling with new onset unilateral (right) leg swelling. Advised to go to ED for DVT evaluation. Discussed risks delay in diagnosis of potential DVT (risk of PE). Tabitha Montana MD Hematology-Oncology Fellow Phone/Pager: [phone] Page me documented in this encounterPremier Health05-08-2024 Telephone encounter Note * Telephone Encounter - [...] Altman RN March 10, 2024 4:18 PM [facility] Work Phone: 1([phone]) 564-402905-08-2024 Miscellaneous Notes* Telephone Encounter - Noah Altman [...] 10, 2024 4:18 PM documented in this encounterPremier Health05-07-2024 [facility]Ohio[facility]05-07-2024 History of Present illness Narrative* Noah [...] Change to Band-Aid in am. Call tomorrow [phone] to report progress. Report any concerns and/or go to the emergencyroom. Do not get it wet for one week (such as taking showers or swimming), avoid heavy exertion (including weight training exercises) for same period. Ambulatory patient. SIGNATURE: Noah Altman RN PATIENT NAME: Katia Shaikh DATE: March 09, 2024 TIME: 1:55 PM PAGER/CONTACT #: [phone] * Noah Altman RN - 03/09/2024 10:48 AM EDT APHERESIS MNC COLLECTION FOR IMMUNE EFFECTOR CELL THERAPY : 1955 Age:[age] year old Gender: male BP 120/77 Pulse 92 Temp 36.7 C (98.1 F) (Oral) Resp 18 Ht 180.1 cm (5' 10.91 ) Wt 82.1 kg(181 lb) BMI 25.31 kg/m Start Procedure Time: 09:19 Day: 1 Procedure: MNC Collection for IEC [facility] Vendor ID: [id number] Protocol: N/A Physician: Dr. Galdamez BMT Coordinator: [...] for anticoagulation during collection NSS lot # [id number] NSS expiration ACD lot # [id number] ACD expiration Apr 27 Machine Information Machine Optia # 6 cMNC Machine Clean vv Alarm Check vv Kit lot # [id number] Kit expiration 2025-11-03 Anticoagulant Connection Adapter Lot # [id number] Anticoagulant Connection Adapter Expiration Date 2025-08-03 Blood warmer # 6 Blood warmer tubing lot# [id number] Blood warmer tubing expiration 2025-06-04 Blood warmer temperature: 40.8 C Patient's Total Blood Volume 5309 ml Processed: 2.8 blood volumes = 54865 ml Collected 208 ml product. AC Ratio: 12:1 AC in Product: 26 Product labeled per protocol. Product picked up by : [facility] Upon completion: Temp 98.2 F oral, Pulse [...] procedure well. Faisal Blanco PA-C 03/09/24 Pager: [phone] documented in this encounterPremier Health05-07-2024 Nurse Note* Noah Altman RN - 03/09/2024 [...] By Noah Altman RN in Department: HEMATOLOGY/ONCOLOGY [facility]05-07-2024 Nurse Note* Noah Altman RN - 03/09/2024 [...] RN in Department: HEMATOLOGY/ONCOLOGY documented in this encounterPremier Health05-07-2024 NoteOhio[facility]05-07-2024 Note[facility]05-07-2024 History of Present illness Narrative* Niesha Galdamez MD - 03/09/2024 10:30 AM EDT Images from the original note were not included. [facility] DEPARTMENT OF HEMATOLOGY AND MEDICAL ONCOLOGY DIAGNOSIS: [...] pathology was read as DLBCL at [facility]. 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 PHYSICAL EXAM: VS: BP 130/76 Pulse 91 [...] Neut (k/uL) Date Value 03/09/2024 5.36 Abs [place] (k/uL) Date Value 03/09/2024 1.06 (H) Abs [...] and incisional biopsy was read asDLBCL at [facility] but when reviewed by [facility] [...] plan. Niesha Galdamez MD Associate Staff Physician [facility] [address] [place] [address] Pager: [phone] documented in this encounterPremier Health05-07-2024 NoteHNO ID: [id number] Author: RAVEN OBREGON, RN Service: Interventional Radiology Author Type: Registered Nurse Type: Nursing Progress Note Filed: 03/09/2024 08:46 Note Text: Pt sent to [facility] with Port accessed in case they will need to use port. [facility]05-06-2024 Nurse Note* Jill Broussard LPN - 03/08/2024 3:33 PM EDT Additional intake questions: Has the patient had fever, nausea, vomiting, diarrhea, constipation, fatigue for > 1 week? No Does the patient have a decreased appetite? No Does patient want to see a Trimmer Machine? No (yes to any of above refer patient to schedulers for dietitian appointment) ) Does patient have any new or increased numbness or tingling of extremities? No Is patient interested in fertility information? No Does patient need any prescription refills? No Does patient have an advanced directive in place? No, Patient referred to [facility] Electronically Signed By: Jill Broussard LPN [facility]05-06-2024 Nurse Note* Jill Broussard LPN - 03/08/2024 3:33 PM EDT Additional intake questions: Has the patient had fever, nausea, vomiting, diarrhea, constipation, fatigue for > 1 week? No Does the patient have a decreased appetite? No Does patient want to see a Trimmer Machine? No (yes to any of above refer [...] By: Jill Broussard LPN documented in this encounterPremier Health04-30-2024 Telephone encounter Note * Telephone Encounter - Fiona Greer - 03/02/2024 7:11 AM EDT Patient is scheduled 03/25 at 12:15pm for his PET scan in [place]. Fiona Adams [facility]04-30-2024 Miscellaneous Notes* Telephone Encounter - Fiona Greer - 03/02/2024 7:11 AM EDT Patient is scheduled 03/25 at 12:15pm for his PET scan in [place]. Fiona Adams documented in this encounterPremier Health04-25-2024 Telephone encounter Note * Telephone Encounter - Sepideh Thorpe - 02/26/2024 10:10 AM EDT 1st time treatment report. Patient is active with Medicare A and B, LOC 80%, $240 deductible has $0remaining with no OOP max. Patient has A[employer]na Medicare SUPPLEMENT as a secondary to roll picker all 20% Medicare coins. Patient financial responsibility is $0 for each treatment in 2023.Called the patientto discuss navigator services, Cost Facit Questionnaire completed over the phone. Dx: Diffuse large B cell lymphoma C83.38 // DxDate: 02/18/2024 // Physician: Niesha Galdamez MD [id number]. [facility] Work Phone: 1(913) 908-905104-25-2024 Miscellaneous Notes* Telephone Encounter - Sepideh Thorpe - 02/26/2024 10:10 AM EDT 1st time treatment report. Patient is active with Medicare A and B, LOC 80%, $240 deductible has $0remaining with no OOP max. Patient has Aetna Medicare SUPPLEMENT as a secondary to roll picker all 20% Medicare coins. Patient financial responsibility is $0 for each treatment in 2023.Called the patientto discuss navigator services, Cost Facit Questionnaire completed over the phone. Dx: Diffuse large B cell lymphoma C83.38 // DxDate: 02/18/2024 // Physician: Niesha Galdamez MD [id number]. documented in this encounterPremier Health04-24-2024 Telephone encounter Note * Telephone Encounter - [...] post-transplant medications. SW reached out to [place] [place] for additional assistance. Jennifer reported they have been concerned about the financial stress of travel and lodging expenses. SW made a referral to the [facility] financial navigators for assistance with S grants. She reported her and Roverto have been feeling frustrated and overwhelmed with upcoming medical appointments. SW provided validation and emotional support. SW to follow. FREDA Cottrell [facility] Work Phone: [phone] Miscellaneous Notes* Telephone Encounter - Krystyna Hernandez [...] post-transplant medications. SW reached out to [employer] [place] for additional assistance. Jennifer reported they have been concerned about the financial stress of travel and lodging expenses. SW made a referral to the [facility] financial navigators for assistance with S grants. She reported her and Roverto have been feeling frustrated and overwhelmed with upcoming medical appointments. SW provided validation and emotional support. SW to follow. FREDA Cottrell documented in this encounterPremier Health04-23-2024 History of Present illness Narrative* Krystyna Hernandez LISW - 02/24/2024 12:50 PM EDT PSYCHOSOCIAL ASSESSMENT BLOOD AND MARROW TRANSPLANT PROGRAM DATE OF ASSESSMENT:02/25/24 Psychosocial Assessment of Candidates for Transplantation (PACT) Score: 3 - good transplant candidate DATA: Katia Shaikh is a 68 year old male who is planning on undergoing an Chimeric Antigen Receptor (CAR) T-cell therapy. His oncologist at [facility] is Dr. Galdamez. Katia Shaikh was diagnosed [...] . HOME ENVIRONMENT: Katia Shaikh resides at [address] [place] [address] with his , Jennifer (about an hour and 15 minutes from [facility] Main). Katia Shaikh has access to a [...] support; he does not affiliate with a nondenominational. 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 [...] Shaikh's health insurance is Medicare and Medicare [employer]. He has a pharmacy benefit and has affordable co-pays. Katia Shaikh is not registered with The [employer]uk[employer] Co- Pay Assistance Program. He has not received additional [facility] grants. He will not be referred to the [facility] Financial Navigators for enrollment. Katia Shaikh does not express financial concerns. He was provided with information about discounted parking at [facility]. He does not qualify for parking assistance and was referred to the [facility] Patient Home Health Care Social Worker for assistance. INTERESTS: Katia Shaikh enjoys car racing with his son and riding his motorcycle. ADVANCE CARE PLANNING: Katia Shaikh states that he does not have a living will; Provided education on their right to complete AD documents. . he does not have a power of regulatory attorney for health care; Provided education on [...] tab: Yes FREDA Cottrell documented in this encounterPremier Health04-23-2024 NoteOhio[facility]04-23-2024 NoteOhio[facility]04-23-2024 History of Present illness Narrative* Radha [...] discharge requirements including follow up appointment at [facility] within 5 business days of discharge, physician appointment at 1 month, 2 months and 100 days post discharge. Also explained the possibility that the patient would need to follow in [place] more often if necessary. Reinforced that it is required to have a 24/7 caregiver for 4 weeks post infusion, that driving or operating heavy machinery for 8 weeks post infusion is prohibited, and that they must stay within 2 hours of [facility] for 4 weeks post infusion. Reviewed allergies [...] Work Radha Peng RN documented in this encounterPremier Health04-22-2024 NoteOhio[facility] Marion [facility] Hospital04-22-2024 History of Present illness Narrative* Krystyna [...] 2024 Time: 11:21 AM documented in this encounterPremier Health04-17-2024 Miscellaneous Notes* Telephone Encounter - Elizabeth Nice [...] No - Schedule as requested Comments for Sugar Refiner: 03/31/24 ROUTE TO SCHEDULERS POOL P PET REVENUE ACCOUNTANT or P NM SPECIAL STUDIES * Telephone Encounter - Elena Rosenthal - 02/18/2024 11:01 AM EDT This form is used for MAIN CAMPUS APPOINTMENTS ONLY. Is this request for a [place] PET scan appointment? Yes: Wire Setter: Elena Kim Requesting Person (Paula Martins): [id number] Area Code + Phone/Pager: [phone] Who do we call to schedule this appointment? Requestor Requesting Staff [id number] Area Code + Phone/Pager: N/A PET Orders [...] to Raquel KIM REVIEW documented in this encounterPremier Health04-17-2024 Instructions* Patient Instructions* Radha Peng, STEVE - [...] see orders J1-4 02/23 Echo LVEF x 04859 1 hr J1-5 02/[address] scans - [...] Admission Interview J1-1 04/06 documented in this encounterPremier Health04-17-2024 Miscellaneous Notes* Telephone Encounter - Radha Peng RN - 02/18/2024 9:26 AM EDT CAR T-cell Initial Telephone Contact Spoke with Katia Shaikh on the telephone on 02/18/2024 at 0915 regarding CAR T-Cell Therapy / [employer]. Discussed evaluation testing required, including bone marrow biopsy, for which a refuse driver is required. Once resulted, all staging results and requested information will be sent to insurance company forapproval. Reviewed generic calendar outlining the CAR-T process. Reviewed that prior to leukapheresis, patient will need to have a temporary catheter placed in Interventional Radiology. Discussed process of collecting/processing T cells, including 1 day of Apheresis, cells being sent to [facility] and engineered into CAR-T cells. Explained that [...] to be inserted prior to admission to [facility], and that patient will receive the Car-T [...] is calling Niesha Galdamez MD today regarding Roofer Gypsum - Other (Next Steps) Patient requesting call back to go over next steps and what to expect next. Requesting response back: [phone] (cell) Duration of symptoms: N/A Patient has been identified by name and birthdate. Pretty Jimenez February 18, 2024 documented in this encounterPremier Health04-11-2024 History of Present illness Narrative* Niesha Galdamez MD - 02/12/2024 11:00 AM EDT Images from the original note were not included. [facility] DEPARTMENT OF HEMATOLOGY AND MEDICAL ONCOLOGY DIAGNOSIS: [...] pathology was read as DLBCL at [facility]. 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 PHYSICAL EXAM: VS: BP 133/72 Pulse 75 [...] Neut (k/uL) Date Value 12/25/2023 3.66 Abs [place] (k/uL) Date Value 12/25/2023 1.06 (H) Abs [...] biopsy was read as DLBCL at [facility] but when reviewed by [facility] [...] complete. Niesha Galdamez MD Associate Staff Physician [facility] [address] [place] [address] Pager: [phone] documented in this encounterPremier Health04-11-2024 [facility]04-11-2024 Nurse Note* Wallace Tolentino LPN - 02/12/2024 10:55 AM EDT Additional intake questions: Has the patient had fever, nausea, vomiting, diarrhea, constipation, fatigue for > 1 week? No Does the patient have a decreased appetite? No Does patient want to see a Trimmer Machine? No (yes to any of above refer patient to schedulers for dietitian appointment) ) Does patient have any new or increased numbness or tingling of extremities? No Is patient interested in fertility information? No Does patient need any prescription refills? No Does patient have an advanced directive in place? No Electronically Signed By: Wallace Tolentino LPN documented in this encounterPremier Health04-01-2024 NoteOhiohealth Marion [facility] Hospital04-01-2024 History of Present illness Narrative* Brit Arzola MA - 02/02/2024 4:05 PM EDT POPULATION HEALTH NAVIGATION OUTREACH Action/FYI PCP is EMELIA GONZALEZ MD [facility] Everywhere PCP field updated Reason for Outreach Care Gap/HCC or Scheduling Wellness Visits Care Gaps due: Establish Care Appointment Patient Contacted: Unable or unnecessary to reach patient: PCP field updated Navigation Signature: Brit Arzola MA February 02, 2024 4:05 PM documented in this encounterPremier Health04-01-2024 NoteOhiohealth [facility] Hospital04-01-2024 History of Present illness Narrative* Michael Boykin MD - 02/02/2024 6:25 AM EDT PATIENT NAME: Katia Shaikh DATE: 02/02/2024 PRIMARY CARE PHYSICIAN: No PCP OTHER PHYSICIANS: Dr. Rivera, Dr. Emelia Gonzalez ([facility] [place]), Dr. Niesha Galdamez Portions of this encounter note have been copied from the note from 01/12/2024 and has been updated where appropriate, and reflect my current medical decision making from today. CC: This is a 68 year old male with recurrent lymphoma, seen for scheduled follow-up. INTERIM HISTORY: Since the patient's last visit here he followed up with the [facility] lymphoma group (Dr. Galdamez) and temporary plans [...] PATHOLOGY: 12/17/2023 Right inguinal lymph node biopsy ([facility]: Mature B-cell non-Hodgkin lymphoma [facility] Pathology:-Aggressive large B-cell lymphoma, favor germinal center immunophenotype 05/07/2023 Right inguinal lymph node biopsy [facility]: Diffuse large B-cell lymphoma [facility] Pathology: [...] Criteria score : 4 04/24/2023 PET scan ([facility]) Above the diaphragm the patient has [...] of a right inguinal lymph node at [facility]. Initial pathology per [facility] consistent with diffuse large B-cell lymphoma. However, on review per [facility] pathology it was felt to be consistent with follicular grade 3 lymphoma rather than diffuse large B-cell lymphoma. Hewas seen by Dr. Galdamez at [facility], and recommendations were to proceed [...] excisional biopsy of the right inguinal node. [facility] pathology confirmed aggressive large B-cell lymphoma, favor [...] is scheduled to see Dr. Galdamez at [facility] on 02/12/2024 at which time [...] indicated. Michael Boykin MD documented in this encounterPremier Health03-29-2024 History of Present illness Narrative* Margie See [...] PATIENT PRESENTS WITH AN IMPLANTABLE OR ATTACHED FACILITIES ASSISTANT: No IV SITE: lt hand POST EXAM PIV STATUS: Discontinued PROCEDURE TYPE: NM INJECT: PET/CT BODY SCAN. 9.9 mCi F18 FDG. No other medications given.. ADMINISTRATION TIME: 1340 PATIENT DISCHARGED TO: Ambulatory patient, left CT department area. A Diagnostic radioactive procedure has taken place, with no further precautions necessary other than routine body substance precautions. More information regarding radiation safety can be found usingthis link: [email or web address] SIGNATURE: RT Errol(R) PATIENT NAME: Katia Shaikh DATE: January 30, 2024 TIME: 1:51 PM PAGER/CONTACT #: documented in this encounterPremier Health03-29-2024 NoteOhio[facility] Hospital03-29-2024 NoteOhio[facility]03-27-2024 History of Present illness Narrative* Dmitry [...] Diagnosis: DLBCL likely transformed from [place] Path: REHABILITATION CLERK GCB ; Ki-67 70-80%; No MYC/BCL2 double expression; FISH positive BCL6; CD5 negative NCCN-IPI: Pending Age 60-75 (2) and LDH >1-3x ULN (1); Low-intermediate (2-3); 5yr PFS 74%, OS 82% NETWORK ARCHITECT-IPI: Pending Age >60 and LDH elevated; Intermediate [...] DLBCL diagnosed in March 2023 at [facility] who sought second opinion at [facility] where Pathology rendered diagnosis of [place] grade [...] notes, intends to continue following with at [facility], who has recommended CAR-T therapy. We discussed that his overall picture is potentially consistent with a late relapse of DLBCL vs a de josse DLBCL in the setting of [place]. There was discrepancy regarding his diagnosis last March, initiallybeing DLBCL then changed to [place] 3A per [facility] Path review. He has now received BR [...] Cici Mora MD Hematology/Medical Oncology Fellow Pager [phone] HISTORY OF PRESENT ILLNESS: See Oncology History [...] DLBCL diagnosed in March 2023 at [facility] who sought second opinion at [facility] where Pathology changed the diagnosis of DLBCL [...] to continue following with Dr. Castaneda at [facility], who has recommended CAR-T therapy. 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 BR x6 cycles was recommended, completed in 10/2023. EOT PET demonstrated significant improvement and resolution in most areas of prior involvement, but persistent FDG avidity in the right inguinal LN. He underwent an excisional LN biopsy which demonstrated DLBCL ([facility] pathology). We reviewed his clinical course and [...] to proceed with CD19.CAR-T cell therapy at [facility]. A PET scan is planned for 01/30/24 [...] the discharge instructions. Dorcas Bolanos MD, MSCR Duster Tender - Division of Hematology [facility] documented in this encounterSelect [facility]03-27-2024 Instructions* Patient Instructions* Chioma Austin RN - 01/28/2024 10:[address] Bolanos Clinic Orientation Thank you for entrusting your care to us at [facility]. Our clinic specifically focuses on the [...] Bakari Bolanos MD, MSCR: physician Patti Isidro, OUTPATIENT INTERVIEWING CLERK: nurse practitioner Chana Brown, OUTPATIENT INTERVIEWING CLERK: nurse practitioner Danielle Yates, RN: clinic nurse Chioma Austin, RN: clinic nurse Kelsy Gage, RN: Patient Care Arm Rest Builder Brian Hilliard MS, RD: radio interference supervisor Eliazar Reeder [facility] & Brittani Redmond [facility]: Pharmacists Counseling Services Manager [facility] is a [...] we will contact you via phone or Qoturehart. With rare exception, we schedule visits shortly [...] please call the nurse triage line at [phone] (open 26/05). Nurse Triage . For non-urgent matters or general questions, we prefer that you write them down so that we can address them in person at our next visit. If you feel that your question needs to be addressed prior to your next visit, please call nurse triage ([phone]) or send a message in AdsWizz. If you need medication refills for drugs that we have prescribed you, it is best to let us know during your office visit. If you need a refill before your next visit, please send a message via AdsWizz. Please alert us at least 7 days [...] a test that you can't find within Time Wardent, please feel free to call us and we will get back to you with that information. Please allow 24-48 hours for a response when using My Chart. Please do not use My Chart for urgent needs. The best way to communicate urgent needs is by calling the nurse triage line. [email or web address]: Each year, I ride 50+ miles for cancer research. This is a bike ride in [place] - 100% of every donation is invested at [facility] for innovative cancer research. Please see my rider profile: [email or web address] Results for orders placed or performed in [...] 75 >=60 mL/min/1.73m2 documented in this encounterU [facility]03-26-2024 Miscellaneous Notes* Telephone Encounter - Radha Peng RN - 01/27/2024 3:06 PM EDT Attempted to contact patient to discuss CAR-T therapy. No answer, message left and contact information provided. Radha Peng RN January 27, 2024 3:07 PM documented in this encounterPremier Health03-18-2024 NoteOhio[facility]03-15-2024 NoteOhio[facility]03-15-2024 History of Present illness Narrative* Niesha Galdamez MD - 01/16/2024 8:04 AM EDT Images from the original note were not included. [facility] DEPARTMENT OF HEMATOLOGY AND MEDICAL ONCOLOGY [facility] VISIT This visit is a Audio Only Visit encounter which required patient-provider interaction for the medical decision making as documented below. Persons Present: patient and patient's spouse/significant other I have communicated my name and active licensure. The patient s identity and physical location wereverified at the time of this visit. Katia Shaikh or their legal claims service representative has been informed of the [...] pathology was read as DLBCL at [facility]. 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 PHYSICAL EXAM: None- audio only DATA REVIEWED: [...] will order PET/CT to be done at [place]. Niesha Galdamez MD Associate Staff Physician [facility] [address] [place] [address] Pager: [phone] documented in this encounterPremier Health03-13-2024 Miscellaneous Notes* Telephone Encounter - Ivania Jackman [...] noted. Ivania Jackman RN documented in this encounterPremier Health03-11-2024 NoteOhiohealth [facility] Hospital03-11-2024 History of Present illness Narrative* Michael Boykin MD - 01/12/2024 7:17 AM EDT PATIENT NAME: Katia Shaikh DATE: 01/12/2024 PRIMARY CARE PHYSICIAN: No PCP OTHER PHYSICIANS: Dr. Rivera, Dr. Emelia Gonzalez ([facility] [place]), Dr. Niesha Galdamez Portions of this encounter note have been copied from the note from 12/25/2023 and has been updated where appropriate, and reflect my current medical decision making from today. CC: This is a 68 year old male with recurrent lymphoma, seen for scheduled follow-up. INTERIM HISTORY: Since the patient's last visit here his right inguinal lymph node biopsy was reviewed by [facility] pathology. The diagnosis of aggressive B-cell lymphoma [...] PATHOLOGY: 12/17/2023 Right inguinal lymph node biopsy ([facility]) [facility]: Mature B-cell non-Hodgkin lymphoma [facility] Pathology:-Aggressive large B-cell lymphoma, favor germinal center immunophenotype 05/07/2023 Right inguinal lymph node biopsy [facility]: Diffuse large B-cell lymphoma [facility] Pathology: [...] Criteria score : 4 04/24/2023 PET scan ([facility]) Above the diaphragm the patient has [...] of a right inguinal lymph node at [facility]. Initial pathology per [facility] consistent with diffuse large B-cell lymphoma. However, on review per [facility] pathology it was felt to be consistent with follicular grade 3 lymphoma rather than diffuse large B-cell lymphoma. Hewas seen by Dr. Galdamez at [facility], and recommendations were to proceed [...] excisional biopsy of the right inguinal node. [facility] pathology confirmed aggressive large B-cell lymphoma, favor [...] indicated. Michael Boykin MD documented in this encounterPremier Health03-04-2024 NoteOhio[facility]03-04-2024 History of Present illness Narrative* Niesha Galdamez MD - 01/05/2024 12:45 PM EST Images from the original note were not included. [facility] DEPARTMENT OF HEMATOLOGY AND MEDICAL ONCOLOGY DIAGNOSIS: [...] pathology was read as DLBCL at [facility]. 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 PHYSICAL EXAM: VS: BP 139/80 Pulse [...] PATH 12/24/2023 FINAL DIAGNOSIS Outside slides from [facility], [place], [place], labeled [id number], collected 12/17/2023: A-B. Right inguinal lymph node, [...] been determined by the performing laboratory within [facility] [place] ([facility]), [facility], [facility], [facility], [facility], [facility], or [facility]) in a manner consistent with CLIA [...] deeper sections of tissue block A5 at [facility]. The lymphoma cells are positive for CD10 [...] biopsy was read as DLBCL at [facility] but when reviewed by [facility] including the hematopathology cons ensus conference, it was read as FL, grade 3A. I explained this review was released into [employer] and I also provided a copy for [...] decision. Niesha Galdamez MD Associate Staff Physician [facility] Cancer [address] [place] [address] Pager: [phone] CC: Michael Boykin ([facility]) [address] [place] [address] [place] [id number] . documented in this encounterPremier Health03-04-2024 Nurse Note* Ru Mcnair MA - 01/05/2024 12:35 PM EST Additional intake questions: Has the patient had fever, nausea, vomiting, diarrhea, constipation, fatigue for > 1 week? Yes, constipation (day of last BM 01/05/24) Does the patient have a decreased appetite? No Does patient want to see a Trimmer Machine? No (yes to any of above refer patient to schedulers for dietitian appointment) ) Does patient have any new or increased numbness or tingling of extremities? No Is patient interested in fertility information? No Does patient need any prescription refills? No Does patient have an advanced directive in place? No, Patient referred to [facility] documented in this encounterPremier Health02-27-2024 NoteOhio[facility]02-27-2024 History of Present illness Narrative* Tristen [...] pathology review [facility]: FINAL DIAGNOSIS Outside slides ([id number], 05/07/2023), [place], [place] Right inguinal lymph node, excisional biopsy: [...] follow with Dr. Ashutosh Galdamez at [facility] regarding this. Signed by: Tristen Varela MD cc: To use this Smartlink, specify the provider ID whose address you want to display, e.g., .PROVADDR[1(where 1 is the provider ID). Michael Boykin ([place]) [address] [place] [address] [place] [id number] documented in this encounterPremier Health02-27-2024 Nurse Note* Jackeline Cunningham LPN - 12/30/2023 11:01 AM EST Pacemaker/Defibrillator?N Previous Cancer(s)?NHL dx'd ~ 22 years ago Previous Radiation?Y -chest 22 years ago Lupus/Scleroderma?N On body monitoring device?N documented in this encounterPremier Health02-26-2024 Miscellaneous Notes* Telephone Encounter - Fabi Freed [...] advise and we will call both scheduling [phone] to reschedule and call patient back as well with information regarding this appointment. Thank you for your time and help with getting this patient scheduled. Fabi Wong * Telephone Encounter - Ivania Jackman RN - 12/29/2023 9:45 AM EST Clerical: Pt will need to see Dr Galdamez @ [facility] Main to discuss potential treatment options. This [...] MD; Niesha Galdamez MD documented in this encounterPremier Health02-22-2024 NoteOhiohealth Marion General Hospital02-22-2024 History of Present illness Narrative* Michael Boykin MD - 12/25/2023 6:19 AM EST PATIENT NAME: Katia Shaikh DATE: 12/25/2023 PRIMARY CARE PHYSICIAN: No PCP OTHER PHYSICIANS: Dr. Rivera, Dr. Emelia Gonzalez ([facility] [place]), Dr. Niesha Galdamez Portions of this encounter [...] PATHOLOGY: 12/17/2023 Right inguinal lymph node biopsy ([facility]) [facility]: Mature B-cell non-Hodgkin lymphoma [facility] Pathology: Pending 05/07/2023 Right inguinal lymph node biopsy [facility]: Diffuse large B-cell lymphoma [facility] Pathology: [...] Criteria score : 4 04/24/2023 PET scan ([facility]) Above the diaphragm the patient has [...] of a right inguinal lymph node at [facility]. Initial pathology per [facility] consistent with diffuse large B-cell lymphoma. However, on review per [facility] pathology it was felt to be consistent with follicular grade 3 lymphoma rather than diffuse large B-cell lymphoma. Hewas seen by Dr. Galdamez at [facility], and recommendations were to proceed [...] referred his recent lymph node biopsy to [facility] pathology for their evaluation. If the node is consistent with a follicular lymphoma we will confer with [facility] hematology options for management which would include [...] indicated. Michael Boykin MD documented in this encounterPremier Health02-19-2024 Miscellaneous Notes* Telephone Encounter - Fifi Cobos - 12/22/2023 2:49 PM EST Sent for path to be sent. * Telephone Encounter - Ivania Jackman RN - 12/22/2023 2:16 PM EST Pt's lymph node biopsy was positive for NHL B-Cell Lymphoma. Dr Boykin would like pt's path sent [facility] for review. Pt notified of the above and verbalizes understanding. BRM/Clerical: Path Review order pended. Ivania Jackman RN documented in this encounterPremier Health02-15-2024 Hospital Discharge instructions Follow Up Care 12/18/2023 10:34:54 With:MIGUEL LOFTON, TERRELL Kirk Address: [address] [place], [place] [id number] When: only if needed General Surgery [facility] 02-12-2024 Miscellaneous Notes* Telephone Encounter - Gretchen Arora - 12/15/2023 2:12 PM EST Roverto is scheduled to have his bx on Fri12-17-23. Rescheduled his follow up with you from 12-16 to 12-25. This is just an FYI. Please let me know if you need to see him prior to his bx. documented in this encounterPremier Health02-06-2024 NoteChief Complaint consultation for right inguinal mass [...] - Not Given Patient (more content not included)...[facility]ma HealthComment on above:Result Comment: Electronically Signed By: MIGUEL LOFTON, Chiquita Mas\Date and Time Signed: 12/09/23 18:51 [id number] NoteHNO ID: [id number] Author: MARLEE HARPER RN Service: ? Author Type: Registered Nurse Type: Progress Notes Filed: 11/20/2023 13:34 Note Text: Labs drawn on Friday with PET scan, no labs ordered for today and patient will see Dr. BoykinOhiohealth [facility] Hospital01-18-2024 [facility]01-16-2024 History of Present illness Narrative* Esther Rivera [...] 1052 PATIENT DISCHARGED TO: Ambulatory patient, left CT department area. A Diagnostic radioactive procedure has taken place, with no further precautions necessary other than routine body substance precautions. 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 Would you like labs? 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 A Diagnostic radioactive procedure has taken place, with no further precautions necessary other than routine body substance precautions. 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 Rivera, Dr. Emelia Gonzalez ([facility] [place]), Dr. Niesha Galdamez Portions of this encounter [...] PATHOLOGY: 05/07/2023 Right inguinal lymph node biopsy [facility]: Diffuse large B-cell lymphoma [facility] Pathology: [...] 09/02/2023 160 RADIOLOGY/OTHER STUDIES: 04/24/2023 PET scan ([facility]) Above the diaphragm the patient has significant [...] of a right inguinal lymph node at [facility]. Initial pathology per [facility] consistent with diffuse large B-cell lymphoma. However, on review per [facility] pathology it was felt to be consistent with follicular grade 3 lymphoma rather than diffuse large B-cell lymphoma. Hewas seen by Dr. Galdamez at [facility], and recommendations were to proceed [...] indicated. 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 Repositioned needles 2 additional times. Clearly felt port wall against needle all 3 times. Mulptiple positions tried to get blood return with no return. Flushing easily; no pain. No swelling at port. Pt can not stay for cathflo today. Peripheral draw performed. 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 Rivera, Dr. Emelia Gonzalez ([facility] [place]), Dr. Niesha Galdamez Portions of this encounter [...] PATHOLOGY: 05/07/2023 Right inguinal lymph node biopsy [facility]: Diffuse large B-cell lymphoma [facility] Pathology: [...] 07/08/2023 146 RADIOLOGY/OTHER STUDIES: 04/24/2023 PET scan ([facility]) Above the diaphragm the patient has significant [...] of a right inguinal lymph node at [facility]. Initial pathology per [facility] consistent with diffuse large B-cell lymphoma. However, on review per [facility] pathology it was felt to be consistent with follicular grade 3 lymphoma rather than diffuse large B-cell lymphoma. Hewas seen by Dr. Galdamez at [facility], and recommendations were to proceed [...] indicated. 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 Ivania Jackman RN documented in this encounterPremier Health08-25-2023 Miscellaneous Notes* Telephone Encounter - Fifi Sommers RN - 06/27/2023 11:43 AM EDT Pt notified that both scripts were sent to [facility]. Pt states he's not sure that [...] advise Fifi Sommers RN documented in this encounterPremier Health08-23-2023 Miscellaneous Notes* Telephone Encounter - Ivania Jackman [...] well. 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 States that he can get them cheaper there using a Good RX coupon. Cleo: Script pended. Ivania Jackman RN documented in this encounterPremier Health08-04-2023 Miscellaneous Notes* Telephone Encounter - Ivania Jackman [...] at least 1 month. 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 Ivania Jackman RN documented in this encounterPremier Health08-03-2023 History of Present illness Narrative* Michael Boykin MD - 06/05/2023 8:10 AM EDT PATIENT NAME: Katia Shaikh DATE: 06/05/2023 PRIMARY CARE PHYSICIAN: No PCP OTHER PHYSICIANS: Dr. Rivera, Dr. Emelia Gonzalez ([facility] [place]), Dr. Niesha Galdamez Portions of this encounter note have been copied from my note from 05/22/2023 and has been updated where appropriate, and reflect my current medical decision making from today. CC: This is a 67 year old male with recurrent lymphoma, seen for scheduled follow-up. INTERIM HISTORY: Since the patient's last visit here his recent lymph node biopsy was reviewed by [facility] pathology, and it was felt to be consistent with follicular grade 3 lymphoma rather than diffuse large B-cell lymphoma. He was seen by Dr. Galdamez at [facility], and recommendations were to proceed [...] PATHOLOGY: 05/07/2023 Right inguinal lymph node biopsy [facility]: Diffuse large B-cell lymphoma [facility] Pathology: [...] 06/05/2023 334 RADIOLOGY/OTHER STUDIES: 04/24/2023 PET scan ([facility]) Above the diaphragm the patient has significant [...] of a right inguinal lymph node at [facility]. Initial pathology per [facility] consistent with diffuse large B-cell lymphoma. However, on review per [facility] pathology it was felt to be consistent with follicular grade 3 lymphoma rather than diffuse large B-cell lymphoma. Hewas seen by Dr. Galdamez at [facility], and recommendations were to proceed [...] MD CC: Dr. Rivera, Dr. 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 No answer to left detailed message. Niesha Galdamez MD Date: June 01, 2023. documented in this encounterPremier Health07-25-2023 Nurse Note* Danielle Lazaro RN - 05/27/2023 2:51 PM EDT Additional intake questions: Has the patient had fever, nausea, vomiting, diarrhea, constipation, fatigue for > 1 week? No Does the patient have a decreased appetite? No Does patient want to see a Trimmer Machine? No (yes to any of above refer patient to schedulers for dietitian appointment) ) Does patient have any new or increased numbness or tingling of extremities? No Is patient interested in fertility information? No Does patient need any prescription refills? No Does patient have an advanced directive in place? No, Patient referred to [facility] Electronically Signed By: Danielle Lazaro RN documented in this encounterPremier Health07-25-2023 History of Present illness Narrative* Niesha Galdamez MD - 05/27/2023 2:43 PM EDT Images from the original note were not included. [facility] DEPARTMENT OF HEMATOLOGY AND MEDICAL [...] decided to establish with Dr. Boykin at [facility].He does have some fatigue and just minimal weight loss of about five pounds is otherwise feeling well. No fevers, drenching night sweats, unintentional weight loss. No enlarged lymph nodes. 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 Result Received: 05/01/23 10:37 [...] needed. Niesha Galdamez MD Associate Staff Physician [address] [address] Pager: [phone] CC: Michael Boykin ([facility]) [address] [place] [address] [place] [address] . ADDENDUM: Case presented at tumor board and pathologist explained that [facility] Path review shows follicular lymphoma grade 3A and NOT DLBCL. Outside slides ([id number], 05/07/2023), [place], [place] Right inguinal lymph node, excisional biopsy: [...] Dr. Ashutosh Galdamez MD documented in this encounterPremier Health07-24-2023 Miscellaneous Notes* Telephone Encounter - Fabi Freed - 05/26/2023 2:[address] Rivera office they received this referral and have patient scheduled with Dr. Rivera for portplacement on 05/28 [facility]. Fabi Wong * Telephone Encounter - Leslie [...] the patient. Thank you. documented in this encounterPremier Health07-20-2023 History of Present illness Narrative* Michael Boykin MD - 05/22/2023 8:17 AM EDT PATIENT NAME: Katia Shaikh DATE: 05/22/2023 PRIMARY CARE PHYSICIAN: No PCP OTHER PHYSICIANS: Dr. Rivera, Dr. Emelia Gonzalez ([facility] [place]) Portions of this encounter [...] PATHOLOGY: 05/07/2023 Right inguinal lymph node biopsy ([facility]) Diffuse large B-cell lymphoma LABS: Hemoglobin (g/dL) Date Value 05/13/2023 13.4 Hematocrit (%) Date Value 05/13/2023 42.3 WBC (k/uL) Date Value 05/13/2023 9.67 Platelet Count (k/uL) Date Value 05/13/2023 306 RADIOLOGY/OTHER STUDIES: 04/24/2023 PET scan ([facility]) Above the diaphragm the patient has [...] of a right inguinal lymph node at [facility]. Pathology revealed diffuse large B-cell lymphoma. [...] for review. He will be referred to [facility] lymphoma division for specific recommendations. [...] MD CC: Dr. Rivera, Dr. Emelia Gonzalez ([facility] [place]) documented in this encounterPremier Health07-19-2023 Miscellaneous Notes* Telephone Encounter - Ivania Jackman, STEVE - 05/21/2023 3:24 PM EDT Per pt, his 2001 lymph node biopsy was done per Dr Rivera @ [facility]. Spoke w/ Claire in Medical Records. She reports that they only keep records for 10 years. They will not be able to retrieve pt's original path report. Ivania Jackman, TSEVE documented in this encounterPremier Health07-18-2023 Miscellaneous Notes* Telephone Encounter - Emma Mendoza - 05/20/2023 2:39 PM EDT Spoke to Alma Rosa at [facility], she has order and will call patient to schedule. * Telephone Encounter - Ivania Jackman, STEVE - 05/19/2023 3:[address] Boykin, pt's LN biopsy was positive for DLBCL. Recommends we get an ECHO and port placed. Aniket to reach out to [facility] doctor regarding treatment options. Pt notified and verbalizes understanding. Agrees to ECHO, but wishes to wait on port until he speaks w/ at 's appointment. BRM: ECHO order pended. Clerical: Please schedule ECHO at [facility]. Pt would prefer an appointment next week if possible. Ivania Jackman, RN documented in this encounterPremier Health07-14-2023 Miscellaneous Notes* Telephone Encounter - Gretchen Arora - 05/16/2023 9:51 AM EDT 2 nd opinion pathology requested from [facility] / [facility] to be sent to [facility] for review. documented in this encounterPremier Health07-11-2023 History of Present illness Narrative* Michael Boykin MD - 05/13/2023 8:16 AM EDT PATIENT NAME: Katia Shaikh DATE: 05/13/2023 PRIMARY CARE PHYSICIAN: No PCP OTHER PHYSICIANS: Dr. Rivera, Dr. Emelia Gonzalez ([facility] [place]) HPI: This is a 67 year old [...] of a right inguinal lymph node at [facility]. Pathology currently pending. Currently the patient's main complaint is fatigue. He has lost 5 to 10 pounds in the past 3 months.No fevers or night sweats. He has discomfort in his inguinal area from the lymphadenopathy, but no severe pain. He has a history of smoking and continue to do so. He drinks alcohol socially. He is retired from the [employer]. MEDICATIONS: No current outpatient medications on file. [...] PATHOLOGY: 05/07/2023 Right inguinal lymph node biopsy ([facility]) Pathology pending LABS: Hemoglobin (g/dL) Date Value 05/13/2023 13.4 Hematocrit (%) Date Value 05/13/2023 42.3 WBC (k/uL) Date Value 05/13/2023 9.67 Platelet Count (k/uL) Date Value 05/13/2023 306 RADIOLOGY/OTHER STUDIES: 04/24/2023 PET scan ([facility] [employer]) Above the diaphragm the patient has significant [...] of a right inguinal lymph node at [facility]. Pathology currently pending. Most likely the [...] MD CC: Dr. Rivera, Dr. Emelia Gonzalez ([facility] [place]) documented in [facility]04[facility]-2023 Miscellaneous Notes* Telephone Encounter - Ceci Ramírez - 08/04/2023 11:54 AM EDT Patient coming in Friday08/05/23 for follow up treatment. Please add labs orders. Thanks. Ceci Ramírez MA documented in this encounterPremier HealthEvaluation + Plan note No data available for this section General Surgery Ann[facility] Evaluation note* Diagnosis Non-Hodgkin's lymphoma, unspecified body region, unspecified non-Hodgkin lymphoma type (HCC) Hypothyroidism, unspecified type documented in this encounter [facility] Phone: evaluation note* Diagnosis Non-Hodgkin's lymphoma, unspecified body region, unspecified non-Hodgkin lymphoma type (HCC) Hypothyroidism, unspecified type documented in this encounter [facility] [employer] Phone: evaluation note* Diagnosis Non-Hodgkin lymphoma of lymph nodes of multiple regions, unspecified non-Hodgkin lymphoma type (HCC)- Primary Acquired hypothyroidism Unspecified hypothyroidism documented in this encounter [facility]* Diagnosis Diffuse large B-cell lymphoma of lymph nodes of multiple regions (HCC)- Primary [facility]* Diagnosis History of diffuse large B-cell lymphoma- Primary Diffuse large B-cell lymphoma of lymph nodes of multiple regions (HCC) 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) documented [facility]* Diagnosis 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) [facility]* Diagnosis Non-Hodgkin lymphoma of lymph nodes of multiple regions, unspecified non-Hodgkin lymphoma type (HCC)- Primary DE DIOS (dyspnea on exertion) Other dyspnea and respiratory abnormality [facility]* Diagnosis 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 Acquired hypothyroidism Unspecified hypothyroidism History of diffuse large B-cell lymphoma documented in this [facility]* Diagnosis Follicular lymphoma grade IIIa, unspecified body region (HCC)- Primary documented in this encounter [facility]* Diagnosis 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 History of follicular lymphoma [facility] in this encounter [facility]* Diagnosis Non-Hodgkin lymphoma of lymph nodes of multiple regions, unspecified non-Hodgkin lymphoma type (HCC)- Primary 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) [facility] Diagnosis 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 [facility]* Diagnosis Diffuse large B-cell lymphoma, unspecified body region [facility] Diagnosis High grade B-cell lymphoma (HCC)- Primary Other malignant lymphomas, unspecified site, extranodal and solid organ sites History of follicular lymphoma [facility]* Diagnosis 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 History of follicular lymphoma Diffuse large B-cell lymphoma of lymph nodes of multiple regions (HCC) [facility]* Diagnosis Personal history of diseases of blood and blood-forming organs Diffuse large B-cell lymphoma, unspecified body region (HCC) Encounter for monitoring cardiotoxic drug therapy Encounter for therapeutic drug monitoring Diffuse large B-cell lymphoma of lymph nodes of multiple regions (HCC) [facility]* Diagnosis Diffuse large B-cell lymphoma of lymph nodes of multiple regions (HCC) Personal history of diseases of blood and blood-forming organs Diffuse large B-cell lymphoma of lymph nodes of multiple regions (HCC) [facility]* Diagnosis 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 large B-cell lymphoma of lymph nodes of multiple regions (HCC) [facility]* Diagnosis Diffuse large B-cell lymphoma of lymph nodes of multiple regions (HCC)- Primary Diffuse large B-cell lymphoma of lymph nodes of multiple regions (HCC) [facility]* Diagnosis Diffuse large B-cell lymphoma of lymph nodes of multiple regions (HCC) [facility]* Diagnosis 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 History of follicular lymphoma [facility]* Diagnosis Diffuse large B-cell lymphoma of lymph nodes of multiple regions (HCC)- Primary [facility]* Diagnosis Follicular lymphoma grade IIIa, unspecified body region (HCC)- Primary [facility]* Diagnosis Follicular lymphoma grade [...] regions (HCC) [facility]* Diagnosis Diffuse large B-cell [...] multiple regions (HCC) documented in this encounter [facility] note* Diagnosis Diffuse large B-cell lymphoma of lymph nodes of multiple regions (HCC)- Primary Lymphedema Other lymphedema documented in this encounter [facility] note* Diagnosis Diffuse large B-cell lymphoma of lymph nodes of multiple regions (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 Other specified personal history presenting hazards to health documented in this encounter [facility] note* Diagnosis Diffuse large B-cell lymphoma, unspecified body region (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 Other specified personal history presenting hazards to health documented in this encounter [facility] note* Diagnosis 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) documented in this encounter [facility] note* Diagnosis Diffuse large B-cell lymphoma, unspecified body region (HCC) documented in this encounter [facility] note* Diagnosis Diffuse large B-cell lymphoma of lymph nodes of multiple regions (HCC)- Primary Lymphedema Other lymphedema documented in this encounter [facility] Discharge instructions No data available for this section General Surgery [facility] Progress note No data available for this section General [facility] Reason for referral (narrative)* Outpatient Procedure (Routine) - Pending Review Specialty Diagnoses / Procedures Referred By Contac t Referred To [facility] Diagnoses Non-Hodgkin lymphoma of lymph nodes of multiple regions, unspecified non-Hodgkin lymphoma type (HCC) DE DIOS (dyspnea on exertion) Procedures [facility] W/WOM-MODE COMPL SPEC&COLR Michael Tillman MD [address] [place] [address] [place] [address] [facility] [address] [place] [id number] Referral ID Status Reason Start Date Expiration Date Visits Requested Visits Authorized [id number] Pending Review Auto-Generat ed Referral 05/19/2023 05/18/2024 1 1 [facility] for referral (narrative)* Diagnostic Procedure Only (Routine) - Authorized Specialty Diagnoses / Procedures Referred By Contac t Referred To Contact [facility] Diagnoses 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) Procedures NM PET/CT SKULL-THIGH SUBSEQUENT PET IMAGING CT ATTENUATION SKULL BASE MID-THIGH Niesha Galdamez MD [address] [place] [address] [facility] [address] [place] [address] Referral ID Status Reason Start Date Expiration Date Visits Requested Visits Authorized [id number] Authorized Auto-Generat ed Referral 01/20/2024 02/18/2025 1 1 [facility] for referral (narrative)* Diagnostic Procedure Only (Routine) - Authorized Specialty Diagnoses / Procedures [facility] Diagnoses Diffuse large B-cell lymphoma, unspecified body region (HCC) Procedures NM PET/CT SKULL-THIGH SUBSEQUENT PET IMAGING CT ATTENUATION SKULL BASE MID-THIGH Niesha Galdamez MD [address] [place] [address] [facility] [address] [place] [address] Referral ID Status Reason Start Date Expiration Date Visits Requested Visits Authorized [id number] Authorized Auto-Generat ed Referral 02/18/2024 03/19/2025 1 1 * Consult, Test, Treat (Routine) - Authorized Specialty Diagnoses / Procedures Referred By Contac t Referred To Contact Diagnoses Diffuse large B-cell lymphoma of lymph nodes of multiple regions (HCC) Procedures [facility] FOLLOW-UP OFFICE/OUTPATIENT NEW HIGH MDM 60 MINUTES Niesha Galdamez MD [address] [place] [address] Referral ID Status Reason Start Date Expiration Date Visits Requested Visits Authorized [id number] Authorized PCP Requested Referral 02/18/2024 02/17/2025 1 1 * Outpatient Procedure (Routine) - Authorized Specialty Diagnoses / Procedures Referred By Brianac t Referred To Contact [facility] [place] Diagnoses Diffuse large B-cell lymphoma of lymph nodes of multiple regions (HCC) Encounter for monitoring cardiotoxic drug therapy Procedures ECHO ECHO [facility] R-T 2D W/WOM-MODE COMPL SPEC&COLR D Niesha Galdamez MD [id number] [place] [address] Referral ID Status Reason Start Date Expiration Date Visits Requested Visits Authorized [id number] Authorized Auto-Generat ed Referral 02/18/2024 02/17/2025 1 1 * Outpatient Procedure (Routine) - Authorized Specialty Diagnoses / Procedures Referred By Sergio t Referred To Contact [facility] [place] Diagnoses Diffuse large B-cell lymphoma of lymph nodes of multiple regions (HCC) Procedures ECG COMPLETE ECG ROUTINE ECG W/LEAST 12 LDS W/I&R Niesha Galdamez MD [address] [place] [address] [place] [id number] Referral ID Status Reason Start Date Expiration Date Visits Requested Visits Authorized [id number] Authorized Auto-Generat ed Referral 02/18/2024 02/17/2025 1 1 [facility] for referral (narrative)* Diagnostic Procedure Only (Routine) - Pending Review Specialty Diagnoses / Procedures Referred By Sergio astorga Referred To Contact [facility] Diagnoses Diffuse large B-cell lymphoma, unspecified body region (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 Procedures NM PET/CT SKULL-THIGH SUBSEQUENT PET IMAGING CT ATTENUATION SKULL BASE MID-THIGH Niesha Galdamez MD [address] [place] [address] [facility] [address] [place] [address] Referral ID Status Reason Start Date Expiration Date Visits Requested Visits Authorized [id number] Pending Review Auto-Generat ed Referral 04/06/2024 05/06/2025 1 1 T [facility] for referral (narrative)* Diagnostic Procedure Only (Routine) - New Request Specialty Diagnoses / Procedures Referred By Contac t Referred To Contact [facility] Diagnoses Diffuse large B-cell lymphoma of lymph nodes of multiple regions (HCC) Procedures NM PET/CT SKULL-THIGH SUBSEQUENT PET IMAGING CT ATTENUATION SKULL BASE MID-THIGH Michael Boykin MD [address] [place] [address] [facility] [address] [place] [address] Referral ID Status Reason Start Date Expiration Date Visits Requested Visits Authorized [id number] New Request Auto-Generat ed Referral 06/17/2024 07/17/2025 1 1 T [facility] for referral (narrative)* Diagnostic Procedure Only (Routine) - Closed Specialty Diagnoses / Procedures Referred By Contac t Referred To Contact [facility] Diagnoses Diffuse large B-cell lymphoma of lymph nodes of multiple regions (HCC) Procedures NM PET/CT SKULL-THIGH SUBSEQUENT PET IMAGING CT ATTENUATION SKULL BASE MID-THIGH Michael Boykin MD [address] [place] [address] [place] [address] [facility] [address] [place] [address] Referral ID Status Reason Start Date Expiration Date V isits Requested Visits Authorized [id number] Closed Auto-Generate d Referral 06/17/2024 07/17/2025 1 1 T [facility] for referral (narrative)* Diagnostic Procedure Only (Routine) - Closed Specialty Diagnoses / Procedures Referred By Contac t Referred To Contact [facility] Diagnoses Diffuse large B-cell lymphoma, unspecified body region (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 Procedures NM PET/CT SKULL-THIGH SUBSEQUENT PET IMAGING CT ATTENUATION SKULL BASE MID-THIGH Niesha Galdamez MD [address] [place] [address] [facility] [address] [place] [address] Referral ID Status Reason Start Date Expiration Date V isits Requested Visits Authorized [id number] Closed Auto-Generate d Referral 04/06/2024 05/06/2025 1 1 [facility] for referral (narrative)* Diagnostic Procedure Only (Routine) - Closed Specialty Diagnoses / Procedures Referred By Brianac t Referred To Contact [facility] Diagnoses 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) Procedures NM PET/CT SKULL-THIGH SUBSEQUENT PET IMAGING CT ATTENUATION SKULL BASE MID-THIGH Niesha Galdamez MD [address] [place] [address] [facility] [address] [place] [address] Referral ID Status Reason Start Date Expiration Date V isits Requested Visits Authorized [id number] Closed Auto-Generate d Referral 01/20/2024 02/18/2025 1 1 [facility] for referral (narrative)* Diagnostic Procedure Only (Routine) - Closed Specialty Diagnoses / Procedures Referred By Contac t Referred To Contact [facility] Diagnoses Diffuse large B-cell lymphoma, unspecified body region (HCC) Procedures NM PET/CT SKULL-THIGH SUBSEQUENT PET IMAGING CT ATTENUATION SKULL BASE MID-THIGH Niesha Galdamez MD [address] [place] [address] [facility] [address] [place], [place] [id number] Referral ID Status Reason Start Date Expiration Date V isits Requested Visits Authorized [id number] Closed Auto-Generate d Referral 01/21/2024 02/18/2025 1 1 [facility] Diagnostic Procedure Only (Routine) - Closed Specialty Diagnoses / Procedures Referred By Sergio astorga Referred To Contact [facility] Diagnoses Diffuse large B-cell lymphoma, unspecified body region (HCC) Procedures NM PET/CT SKULL-THIGH SUBSEQUENT PET IMAGING CT ATTENUATION SKULL BASE MID-THIGH Cleo Feliz APRN.CNP [address] [place] [address] [place] [address] [facility] [address] [place] [address] Referral ID Status Reason Start Date Expiration Date V isits Requested Visits Authorized [id number] Closed Auto-Generate d Referral 10/28/2023 11/26/2024 1 1 [facility] Diagnosis Non-Hodgkin's lymphoma, unspecified body region, unspecified non-Hodgkin lymphoma type (HCC) Hypothyroidism, unspecified type Encounter for screening for lung cancer Advance Directives No Advanced Directives Records FoundDocuments on File Type Date Recorded Patient Recreational Facilities Motel Manager Expl anation Advance Directives and Living Will Power of Show Card Letterer Documents on File Type Date Recorded Patient Recreational Facilities Motel Manager Expl anation ACP-Advance Directive ACP-Power of Show Card Letterer Date Activated Date Inactivated Comments 04/15/2024 2:33 [...] FIELD SETTING COMPLEX Tristen Varela MD [address] [place] [address] Referral ID Status Reason Start Date Expiration Date Visits Requested Visits Authorized [id number] Pending Review PCP Requested Referral 03/15/2024 06/13/2024 1 1 Specialty Diagnoses / Procedures Referred By Sergio t Referred To Contact Diagnoses Diffuse large B-cell lymphoma of lymph nodes of multiple regions (HCC) Procedures CONSULT TO HEMATOLOGY/ONCOLOGY OFFICE/OUTPATIENT [facility] 60-74 MINUTES Michael Boykin MD [address] [place] [address] [place] [address] Referral ID Status Reason Start Date Expiration Date Visits Requested Visits Authorized [id number] Authorized PCP Requested Referral 05/22/2023 05/21/2024 1 [...] content) DATE CREATED AUTHOR 04/11/2023 Juliane Sapp [facility] DATE CREATED AUTHOR AUTHOR'S ORGANIZ ATION 02/03/2024 [facility] DATE CREATED AUTHOR AUTHOR'S ORGANIZ ATION 07/16/2024 [facility] DATE CREATED AUTHOR AUTHOR'S ORGANIZ ATION 09/04/2024 [facility] DATE CREATED AUTHOR AUTHOR'S ORGANIZ ATION 09/17/2024 [facility] Patient Care team informatio n (unrecognized section and content) Project Manager Retail Relationship Specialty Start Date End Date Cleo Feliz, JOSE ALBERTO.OUTPATIENT INTERVIEWING CLERK [address] [place] [address] [place] [address] Nurse Practitioner Hematology/Oncology 06/05/23 Michael Boykin MD [address] [place] [address] Physician Hematology/Oncology 06/05/23 Ivania Jackman, STEVE [address] [place] [address] Specialty Roofer Gypsum Hematology/Oncology 06/05/23 Project Manager Retail Relationship Specialty Start Date End Date Cleo Feliz, MANAGER ACTUARIAL.OUTPATIENT INTERVIEWING CLERK [address] [facility] [address] Nurse Practitioner Hematology/Oncology 06/05/23 Michael Boykin MD [address] [place] [address] Physician Hematology/Oncology 06/05/23 Ivania Jackman, RN [address] [facility] [address] Specialty Roofer Gypsum Hematology/Oncology 06/05/23 Project Manager Retail Relationship Specialty Start Date End Date Cleo Feliz, MANAGER ACTUARIAL.OUTPATIENT INTERVIEWING CLERK [address] [facility] [address] [place] [address] Nurse Practitioner Hematology/Oncology 06/05/23 Michael Boykin MD [address] [facility] [address] Physician Hematology/Oncology 06/05/23 Ivania Jackman, STEVE [address] [facility] [place] [address] Specialty Roofer Gypsum Hematology/Oncology 06/05/23 Project Manager Retail Relationship Specialty Start Date End Date Cleo Feliz, MANAGER ACTUARIAL.OUTPATIENT INTERVIEWING CLERK [address] [facility] [address] Nurse Practitioner Hematology/Oncology 06/05/23 Michael Boykin MD [address] [facility] [address] Physician Hematology/Oncology 06/05/23 Ivania Jackman, RN [address] [facility] [address] Specialty Roofer Gypsum Hematology/Oncology 06/05/23 Project Manager Retail Relationship Specialty Start Date End Date Cleo Feliz, MANAGER ACTUARIAL.OUTPATIENT INTERVIEWING CLERK [address] [facility] [place] [address] Nurse Practitioner Hematology/Oncology 06/05/23 Michael Boykin MD [address] [place] [address] Physician Hematology/Oncology 06/05/23 Ivania Jackman, STEVE [address] [facility] [address] Specialty Roofer Gypsum Hematology/Oncology 06/05/23 Project Manager Retail Relationship Specialty Start Date End Date Cleo Feliz, MANAGER ACTUARIAL.OUTPATIENT INTERVIEWING CLERK [address] [place] [address] Nurse Practitioner Hematology/Oncology 06/05/23 Michael Boykin MD [address] [place] [address] Physician Hematology/Oncology 06/05/23 Ivania Jackman, STEVE [address] [facility] [address] Specialty Roofer Gypsum Hematology/Oncology 06/05/23 Project Manager Retail Relationship Specialty Start Date End Date Cleo Feliz, MANAGER ACTUARIAL.OUTPATIENT INTERVIEWING CLERK [address] [place] [address] Nurse Practitioner Hematology/Oncology 06/05/23 Michael Boykin MD [address] [place] [address] Physician Hematology/Oncology 06/05/23 Ivania Jackman, RN [address] [facility] [address] Specialty Roofer Gypsum Hematology/Oncology 06/05/23 Project Manager Retail Relationship Specialty Start Date End Date Cleo Feliz, MANAGER ACTUARIAL.OUTPATIENT INTERVIEWING CLERK [address] [place] [address] Nurse Practitioner Hematology/Oncology 06/05/23 Michael Boykin MD [address] [place] [address] Physician Hematology/Oncology 06/05/23 Ivania Jackman, STEVE [address] [facility] [address] Specialty Roofer Gypsum Hematology/Oncology 06/05/23 Project Manager Retail Relationship Specialty Start Date End Date Cleo Feliz, MANAGER ACTUARIAL.OUTPATIENT INTERVIEWING CLERK [address] [facility] [address] Nurse Practitioner Hematology/Oncology 06/05/23 Michael Boykin MD [address] [facility] [place] [address] Physician Hematology/Oncology 06/05/23 Ivania Jackman, RN [address] [facility] [address] Specialty Roofer Gypsum Hematology/Oncology 06/05/23 Project Manager Retail Relationship Specialty Start Date End Date Cleo Feliz, MANAGER ACTUARIAL.OUTPATIENT INTERVIEWING CLERK [address] [facility] [address] Nurse Practitioner Hematology/Oncology 06/05/23 Michael Boykin MD [address] [facility] [place] [address] Physician Hematology/Oncology 06/05/23 Ivania Jackman, RN [address] [facility] [address] Specialty Roofer Gypsum Hematology/Oncology 06/05/23 Project Manager Retail Relationship Specialty Start Date End Date Cleo Feliz, MANAGER ACTUARIAL.OUTPATIENT INTERVIEWING CLERK [address] [facility] [address] Nurse Practitioner Hematology/Oncology 06/05/23 Michael Boykin MD [address] [facility] [address] Physician Hematology/Oncology 06/05/23 Ivania Jackman, STEVE [address] [facility] [address] Specialty Roofer Gypsum Hematology/Oncology 06/05/23 Project Manager Retail Relationship Specialty Start Date End Date Cleo Feliz, MANAGER ACTUARIAL.OUTPATIENT INTERVIEWING CLERK [address] [facility] [place] [address] Nurse Practitioner Hematology/Oncology 06/05/23 Michael Boykin MD [address] [facility] [address] Physician Hematology/Oncology 06/05/23 Ivania Jackman, STEVE [address] [facility] [place] [address] Specialty Roofer Gypsum Hematology/Oncology 06/05/23 Project Manager Retail Relationship Specialty Start Date End Date Cleo Feliz, MANAGER ACTUARIAL.OUTPATIENT INTERVIEWING CLERK [address] [facility] [place] [address] Nurse Practitioner Hematology/Oncology 06/05/23 Michael Boykin MD [address] [place] [address] Physician Hematology/Oncology 06/05/23 Ivania Jackman, RN [address] [place] [address] Specialty Roofer Gypsum Hematology/Oncology 06/05/23 Project Manager Retail Relationship Specialty Start Date End Date Cleo Feliz, MANAGER ACTUARIAL.OUTPATIENT INTERVIEWING CLERK [address] [place] [address] Nurse Practitioner Hematology/Oncology 06/05/23 Michael Boykin MD [address] [place] [address] Physician Hematology/Oncology 06/05/23 Ivania Jackman, RN [address] [facility] [place] [address] Specialty Roofer Gypsum Hematology/Oncology 06/05/23 Project Manager Retail Relationship Specialty Start Date End Date Cleo Feliz, MANAGER ACTUARIAL.OUTPATIENT INTERVIEWING CLERK [address] [place] [address] Nurse Practitioner Hematology/Oncology 06/05/23 Michael Boykin MD [address] [facility] [place] [address] Physician Hematology/Oncology 06/05/23 Ivania Jackman, RN [address] [place] [address] Specialty Roofer Gypsum Hematology/Oncology 06/05/23 Project Manager Retail Relationship Specialty Start Date End Date Cleo Feliz, MANAGER ACTUARIAL.OUTPATIENT INTERVIEWING CLERK [address] [place] [address] Nurse Practitioner Hematology/Oncology 06/05/23 Mihcael Boykin MD [address] [place] [address] Physician Hematology/Oncology 06/05/23 Ivania Jackman, RN [address] [place] [address] Specialty Roofer Gypsum Hematology/Oncology 06/05/23 Project Manager Retail Relationship Specialty Start Date End Date Cleo Feliz, MANAGER ACTUARIAL.OUTPATIENT INTERVIEWING CLERK [address] [facility] [facility] [place] [address] Nurse Practitioner Hematology/Oncology 06/05/23 Michael Boykin MD [address] [place] [address] Physician Hematology/Oncology 06/05/23 Ivania Jackman, STEVE [address] [place] [address] Specialty Roofer Gypsum Hematology/Oncology 06/05/23 Project Manager Retail Relationship Specialty Start Date End Date Cleo Feliz, MANAGER ACTUARIAL.OUTPATIENT INTERVIEWING CLERK [address] [place] [address] Nurse Practitioner Hematology/Oncology 06/05/23 Michael Boykin MD [address] [place] [address] Physician Hematology/Oncology 06/05/23 Ivania Jackman, RN [address] [place] [address] Specialty Roofer Gypsum Hematology/Oncology 06/05/23 Project Manager Retail Relationship Specialty Start Date End Date Cleo Feliz, MANAGER ACTUARIAL.OUTPATIENT INTERVIEWING CLERK [address] [place] [address] Nurse Practitioner Hematology/Oncology 06/05/23 Michael Boykin MD [address] [place] [address] Physician Hematology/Oncology 06/05/23 Ivania Jackman, RN [address] [place] [address] Specialty Roofer Gypsum Hematology/Oncology 06/05/23 Team Status: Inactive Member Role Status Dates Chiquita Rivera MD FACS Attending Provider Active Start: December 17, 2023 End: December 17, 2023 Project Manager Retail Relationship Specialty Start Date End Date Cleo Feliz, MANAGER ACTUARIAL.OUTPATIENT INTERVIEWING CLERK [address] [place] [address] Nurse Practitioner Hematology/Oncology 06/05/23 Michael Boykin MD [address] [place] [address] Physician Hematology/Oncology 06/05/23 Ivania Jackman, STEVE [address] [place] [address] Specialty Roofer Gypsum Hematology/Oncology 06/05/23 Project Manager Retail Relationship Specialty Start Date End Date Cleo Feliz, MANAGER ACTUARIAL.OUTPATIENT INTERVIEWING CLERK [address] [place] [address] Nurse Practitioner Hematology/Oncology 06/05/23 Michael Boykin MD [address] [place] [address] Physician Hematology/Oncology 06/05/23 Ivania Jackman, STEVE [address] [facility] [facility] [place] [address] Specialty Roofer Gypsum Hematology/Oncology 06/05/23 Project Manager Retail Relationship Specialty Start Date End Date Dorcas Bolanos MD [address] [place] [address] Hematology 01/07/24 Niesha Galdamez MD [address] [place] [address] Hematology and Oncology 01/08/24 Michael Boykin MD [address] [place] [address] [place] [address] Hematology and Oncology 01/08/24 Project Manager Retail Relationship Specialty Start Date End Date Emelai Gonzalez MD [address] [id number] PCP - General Hematology/Oncology 02/02/24 Cleo Feliz APRN.OUTPATIENT INTERVIEWING CLERK [address] [facility] [facility] [place] [address] Nurse Practitioner Hematology/Oncology 06/05/23 Michael Boykin MD [address] [place] [address] [place] [address] Physician Hematology/Oncology 06/05/23 Ivania Jackman, STEVE [address] [facility] [place] [address] Specialty Roofer Gypsum Hematology/Oncology 06/05/23 Project Manager Retail Relationship Specialty Start Date End Date Emelia Gonzalez MD [address] [place] [address] PCP - General Hematology/Oncology 02/02/24 Cleo Feliz, MANAGER ACTUARIAL.OUTPATIENT INTERVIEWING CLERK [address] [place] [address] Nurse Practitioner Hematology/Oncology 06/05/23 Michael Boykin MD [address] [place] [address] Physician Hematology/Oncology 06/05/23 Ivania Jackman, STEVE [address] [place] [address] Specialty Roofer Gypsum Hematology/Oncology 06/05/23 Project Manager Retail Relationship Specialty Start Date End Date Emelia Gonzalez MD [address] [place] [address] PCP - General Hematology/Oncology 02/02/24 Cleo Feliz, MANAGER ACTUARIAL.OUTPATIENT INTERVIEWING CLERK [address] [facility] [facility] [place] [address] Nurse Practitioner Hematology/Oncology 06/05/23 Michael Boykin MD [address] [place] [address] Physician Hematology/Oncology 06/05/23 Ivania Jackman, STEVE [address] [place] [address] Specialty Roofer Gypsum Hematology/Oncology 06/05/23 Project Manager Retail Relationship Specialty Start Date End Date Emelia Gonzalez MD [address] [place], [place] [id number] PCP - General Hematology/Oncology 02/02/24 Cleo Feliz, MANAGER ACTUARIAL.OUTPATIENT INTERVIEWING CLERK [address] [place] [address] Nurse Practitioner Hematology/Oncology 06/05/23 Michael Boykin MD [address] [place] [address] Physician Hematology/Oncology 06/05/23 Ivania Jackman, STEVE [address] [place] [address] Specialty Roofer Gypsum Hematology/Oncology 06/05/23 Project Manager Retail Relationship Specialty Start Date End Date Emelia Gonzalez MD [address] [place] [address] PCP - General Hematology/Oncology 02/02/24 Cleo Feliz, MANAGER ACTUARIAL.OUTPATIENT INTERVIEWING CLERK [address] [facility] [place] [address] Nurse Practitioner Hematology/Oncology 06/05/23 Michael Boykin MD [address] [facility] [place] [address] Physician Hematology/Oncology 06/05/23 Ivania Jackman, STEVE [address] [facility] [place] [address] Specialty Roofer Gypsum Hematology/Oncology 06/05/23 Project Manager Retail Relationship Specialty Start Date End Date Emelia Gonzalez MD [address] [place] [address] PCP - General Hematology/Oncology 02/02/24 Cleo Feliz, MANAGER ACTUARIAL.OUTPATIENT INTERVIEWING CLERK [address] [facility] [place] [address] Nurse Practitioner Hematology/Oncology 06/05/23 Michael Boykin MD [address] [place] [address] Physician Hematology/Oncology 06/05/23 Ivania Jackman, STEVE [address] [facility] [place] [address] Specialty Roofer Gypsum Hematology/Oncology 06/05/23 Project Manager Retail Relationship Specialty Start Date End Date Cleo Feliz, MANAGER ACTUARIAL.OUTPATIENT INTERVIEWING CLERK [address] [facility] [facility] [place] [address] Nurse Practitioner Hematology/Oncology 06/05/23 Michael Boykin MD [address] [place] [address] Physician Hematology/Oncology 06/05/23 Ivania Jackman RN [address] [place] [address] Specialty Roofer Gypsum Hematology/Oncology 06/05/23 Krystyna Hernandez, FREDA [address] [place] [address] Blood and Marrow Transplant 02/23/24 Project Manager Retail Relationship Specialty Start Date End Date Cleo Feliz, MANAGER ACTUARIAL.OUTPATIENT INTERVIEWING CLERK [address] [place] [address] Nurse Practitioner Hematology/Oncology 06/05/23 Michael Boykin MD [address] [place] [address] Physician Hematology/Oncology 06/05/23 Ivania Jackman, STEVE [address] [facility] [facility] [place] [address] Specialty Roofer Gypsum Hematology/Oncology 06/05/23 Krystyna Hernandez LISW [address] [place] [address] Blood and Marrow Transplant 02/23/24 Project Manager Retail Relationship Specialty Start Date End Date Cleo Feliz, MANAGER ACTUARIAL.OUTPATIENT INTERVIEWING CLERK [address] [facility] [facility] [place] [address] Nurse Practitioner Hematology/Oncology 06/05/23 Michael Boykin MD [address] [place] [address] [place] [address] Physician Hematology/Oncology 06/05/23 Ivania Jackman RN [address] [facility] [facility] [place] [address] Specialty Roofer Gypsum Hematology/Oncology 06/05/23 Krystyna Hernandez LISW [address] [place] [address] Blood and Marrow Transplant 02/23/24 Project Manager Retail Relationship Specialty Start Date End Date Cleo Feliz, MANAGER ACTUARIAL.OUTPATIENT INTERVIEWING CLERK [address] [facility] [facility] [place] [address] Nurse Practitioner Hematology/Oncology 06/05/23 Michael Boykin MD [address] [facility] [facility] [place] [address] Physician Hematology/Oncology 06/05/23 Ivania Jackman, STEVE [address] [place] [address] Specialty Roofer Gypsum Hematology/Oncology 06/05/23 Krystyna Hernandez LISW [address] [place] [address] Blood and Marrow Transplant 02/23/24 Project Manager Retail Relationship Specialty Start Date End Date Cleo Feliz, MANAGER ACTUARIAL.OUTPATIENT INTERVIEWING CLERK [address] [place] [address] Nurse Practitioner Hematology/Oncology 06/05/23 Michael Boykin MD [address] [place] [address] [place] [address] Physician Hematology/Oncology 06/05/23 Ivania Jackman, STEVE [address] [facility] [facility] [place] [address] Specialty Roofer Gypsum Hematology/Oncology 06/05/23 Krystyna Hernandez LISW [address] [place] [address] Blood and Marrow Transplant 02/23/24 Project Manager Retail Relationship Specialty Start Date End Date Cleo Feliz, MANAGER ACTUARIAL.OUTPATIENT INTERVIEWING CLERK [address] [place] [address] Nurse Practitioner Hematology/Oncology 06/05/23 Michael Boykin MD [address] [place] [address] [place] [address] Physician Hematology/Oncology 06/05/23 Ivania Jackman, STEVE [address] [facility] [facility] [place] [address] Specialty Roofer Gypsum Hematology/Oncology 06/05/23 Krystyna Hernandez LISW [address] [place] [address] Blood and Marrow Transplant 02/23/24 Project Manager Retail Relationship Specialty Start Date End Date Cleo Feliz, MANAGER ACTUARIAL.OUTPATIENT INTERVIEWING CLERK [address] [facility] [place] [address] Nurse Practitioner Hematology/Oncology 06/05/23 Michael Boykin MD [address] [place] [address] Physician Hematology/Oncology 06/05/23 Ivania Jackman, STEVE [address] [facility] [place] [address] Specialty Roofer Gypsum Hematology/Oncology 06/05/23 Krystyna Hernandez LISW [address] [place] [address] Blood and Marrow Transplant 02/23/24 Project Manager Retail Relationship Specialty Start Date End Date Cleo Feliz, MANAGER ACTUARIAL.OUTPATIENT INTERVIEWING CLERK [address] [place] [address] Nurse Practitioner Hematology/Oncology 06/05/23 Michael Boykin MD [address] [place] [address] Physician Hematology/Oncology 06/05/23 Ivania Jackman, STEVE [address] [facility] [place] [address] Specialty Roofer Gypsum Hematology/Oncology 06/05/23 Krystyna Hernandez LISW [address] [place] [address] Blood and Marrow Transplant 02/23/24 Project Manager Retail Relationship Specialty Start Date End Date Cleo Feliz, MANAGER ACTUARIAL.OUTPATIENT INTERVIEWING CLERK [address] [place] [address] Nurse Practitioner Hematology/Oncology 06/05/23 Michael Boykin MD [address] [place] [address] Physician Hematology/Oncology 06/05/23 Ivania Jackman, RN [address] [place] [address] Specialty Roofer Gypsum Hematology/Oncology 06/05/23 Krystyna Hernandez LISW [address] [place] [address] Blood and Marrow Transplant 02/23/24 Project Manager Retail Relationship Specialty Start Date End Date Cleo Feliz, MANAGER ACTUARIAL.OUTPATIENT INTERVIEWING CLERK [address] [place] [address] Nurse Practitioner Hematology/Oncology 06/05/23 Michael Bokyin MD [address] [place] [address] Physician Hematology/Oncology 06/05/23 Ivania Jackman, RN [address] [place] [address] Specialty Roofer Gypsum Hematology/Oncology 06/05/23 Krystyna Hernandez LISW [address] [place] [address] Blood and Marrow Transplant 02/23/24 Project Manager Retail Relationship Specialty Start Date End Date Cleo Feliz, MANAGER ACTUARIAL.OUTPATIENT INTERVIEWING CLERK [address] [place] [address] Nurse Practitioner Hematology/Oncology 06/05/23 Michael Boykin MD [address] [place] [address] Physician Hematology/Oncology 06/05/23 Ivania Jackman, STEVE [address] [facility] [place] [address] Specialty Roofer Gypsum Hematology/Oncology 06/05/23 Krystyna Hernandez, [facility] [address] [place] [address] Blood and Marrow Transplant 02/23/24 Project Manager Retail Relationship Specialty Start Date End Date Cleo Feliz, MANAGER ACTUARIAL.OUTPATIENT INTERVIEWING CLERK [address] [place] [address] Nurse Practitioner Hematology/Oncology 06/05/23 Michael Boykin MD [address] [facility] [address] Physician Hematology/Oncology 06/05/23 Ivania Jackman RN [address] [place] [address] Specialty Roofer Gypsum Hematology/Oncology 06/05/23 Krystyna Hernandez, [facility] [address] [place] [address] Blood and Marrow Transplant 02/23/24 Project Manager Retail Relationship Specialty Start Date End Date Cleo Feliz, MANAGER ACTUARIAL.OUTPATIENT INTERVIEWING CLERK [address] [place] [address] Nurse Practitioner Hematology/Oncology 06/05/23 Michael Boykin MD [address] [place] [address] Physician Hematology/Oncology 06/05/23 Ivania Jackman, STEVE [address] [place] [address] Specialty Roofer Gypsum Hematology/Oncology 06/05/23 Krystyna Hernandez LISW [address] [place] [address] Blood and Marrow Transplant 02/23/24 Project Manager Retail Relationship Specialty Start Date End Date Cleo Feliz, MANAGER ACTUARIAL.OUTPATIENT INTERVIEWING CLERK [address] [place] [address] Nurse Practitioner Hematology/Oncology 06/05/23 Michael Boykin MD [address] [facility] [place] [address] Physician Hematology/Oncology 06/05/23 Ivania Jackman RN [address] [facility] [place] [address] Specialty Roofer Gypsum Hematology/Oncology 06/05/23 Krystyna Hernandez LISW [address] [place] [address] Blood and Marrow Transplant 02/23/24 Martina Marshall RN [address] [address] Specialty Roofer Gypsum Blood and Marrow Transplant 04/06/24 07/05/24 [place] [address] [place] [address] Physician Blood and Marrow Transplant 04/06/24 Project Manager Retail Relationship Specialty Start Date End Date Cleo Feliz, MANAGER ACTUARIAL.OUTPATIENT INTERVIEWING CLERK [address] [facility] [place] [address] Nurse Practitioner Hematology/Oncology 06/05/23 Michael Boykin MD [address] [facility] [place] [address] Physician Hematology/Oncology 06/05/23 Ivania Jackman, STEVE [address] [place] [address] Specialty Roofer Gypsum Hematology/Oncology 06/05/23 Krystyna Hernandez LISW [address] [place] [address] Blood and Marrow Transplant 02/23/24 Martina Marshall RN [address] [address] Specialty Roofer Gypsum Blood and Marrow Transplant 04/06/24 07/05/24 [place] [address] [place] [address] Physician Blood and Marrow Transplant 04/06/24 Project Manager Retail Relationship Specialty Start Date End Date Cleo Feliz, MANAGER ACTUARIAL.OUTPATIENT INTERVIEWING CLERK [address] [facility] [place] [address] Nurse Practitioner Hematology/Oncology 06/05/23 Michael Boykin MD [address] [facility] [place] [address] Physician Hematology/Oncology 06/05/23 Ivania Jackman RN [address] [facility] [facility] [place] [address] Specialty Roofer Gypsum Hematology/Oncology 06/05/23 Krystyna Hernandez LISW [address] [place] [address] Blood and Marrow Transplant 02/23/24 Martina Marshall RN [address] [address] Specialty Roofer Gypsum Blood and Marrow Transplant 04/06/24 07/05/24 [place] [address] [place] [address] Physician Blood and Marrow Transplant 04/06/24 Project Manager Retail Relationship Specialty Start Date End Date Cleo Feliz, MANAGER ACTUARIAL.OUTPATIENT INTERVIEWING CLERK [address] [facility] [facility] [place] [address] Nurse Practitioner Hematology/Oncology 06/05/23 Michael Boykin MD [address] [facility] [place] [address] Physician Hematology/Oncology 06/05/23 Ivania Jackman, RN [address] [facility] [facility] [place] [address] Specialty Roofer Gypsum Hematology/Oncology 06/05/23 Krystyna Hernandez LISW [address] [place] [address] Blood and Marrow Transplant 02/23/24 Martina Marshall RN [address] [address] Specialty Roofer Gypsum Blood and Marrow Transplant 04/06/24 07/05/24 [place] [address] [place] [address] Physician Blood and Marrow Transplant 04/06/24 Project Manager Retail Relationship Specialty Start Date End Date Cleo Feliz, MANAGER ACTUARIAL.OUTPATIENT INTERVIEWING CLERK [address] [facility] [place] [address] Nurse Practitioner Hematology/Oncology 06/05/23 Michael Boykin MD [address] [facility] [place] [address] Physician Hematology/Oncology 06/05/23 Ivania Jackman, RN [address] [facility] [place] [address] Specialty Roofer Gypsum Hematology/Oncology 06/05/23 Krystyna Hernandez LISW [address] [place] [address] Blood and Marrow Transplant 02/23/24 Martina Marshall RN [address] [address] Specialty Roofer Gypsum Blood and Marrow Transplant 04/06/24 07/05/24 [place] [address] [place] [address] Physician Blood and Marrow Transplant 04/06/24 Project Manager Retail Relationship Specialty Start Date End Date Cleo Feliz, MANAGER ACTUARIAL.OUTPATIENT INTERVIEWING CLERK [address] [facility] [place] [address] Nurse Practitioner Hematology/Oncology 06/05/23 Michael Boykin MD [address] [facility] [facility] [place] [address] Physician Hematology/Oncology 06/05/23 Ivania Jackman, STEEV [address] [place] [address] [place] [address] Specialty Roofer Gypsum Hematology/Oncology 06/05/23 Krystyna Hernandez LISW [address] [place] [address] Blood and Marrow Transplant 02/23/24 Martina Marshall RN [address] [address] Specialty Roofer Gypsum Blood and Marrow Transplant 04/06/24 07/05/24 [place] [address] [place] [address] Physician Blood and Marrow Transplant 04/06/24 Project Manager Retail Relationship Specialty Start Date End Date Cleo Feliz MANAGER ACTUARIAL.OUTPATIENT INTERVIEWING CLERK [address] [facility] [place] [address] Nurse Practitioner Hematology/Oncology 06/05/23 Michael Boykin MD [address] [place] [address] Physician Hematology/Oncology 06/05/23 Ivania Jackman, STEVE [address] [place] [address] Specialty Roofer Gypsum Hematology/Oncology 06/05/23 Krystyna Hernandez LISW [address] [place] [address] Blood and Marrow Transplant 02/23/24 Martina Marshall RN [address] [address] Specialty Roofer Gypsum Blood and Marrow Transplant 04/06/24 07/05/24 [place] [address] [place] [address] Physician Blood and Marrow Transplant 04/06/24 Project Manager Retail Relationship Specialty Start Date End Date Cleo Feliz, MANAGER ACTUARIAL.OUTPATIENT INTERVIEWING CLERK [address] [facility] [facility] [place] [address] Nurse Practitioner Hematology/Oncology 06/05/23 Michael Boykin MD [address] [place] [address] Physician Hematology/Oncology 06/05/23 Ivania Jackman, RN [address] [place] [address] Specialty Roofer Gypsum Hematology/Oncology 06/05/23 Krystyna Hernandez LISW [address] [place] [address] Blood and Marrow Transplant 02/23/24 Martina Marshall RN [address] [address] Specialty Roofer Gypsum Blood and Marrow Transplant 04/06/24 07/05/24 [place] [address] [place] [id number] Physician Blood and Marrow Transplant 04/06/24 Project Manager Retail Relationship Specialty Start Date End Date Cleo Feliz, MANAGER ACTUARIAL.OUTPATIENT INTERVIEWING CLERK [address] [facility] [facility] [place] [address] Nurse Practitioner Hematology/Oncology 06/05/23 Michael Boykin MD [address] [facility] [facility] [place] [address] Physician Hematology/Oncology 06/05/23 Ivania Jackman, STEVE [address] [facility] [facility] [place] [address] Specialty Roofer Gypsum Hematology/Oncology 06/05/23 Krystyna Hernandez LISW [address] [place] [address] Blood and Marrow Transplant 02/23/24 Martina Marshall RN [address] [address] Specialty Roofer Gypsum Blood and Marrow Transplant 04/06/24 07/05/24 [place] [address] [place] [id number] Physician Blood and Marrow Transplant 04/06/24 Project Manager Retail Relationship Specialty Start Date End Date Cleo Feliz, MANAGER ACTUARIAL.OUTPATIENT INTERVIEWING CLERK [address] [facility] [place] [address] Nurse Practitioner Hematology/Oncology 06/05/23 Michael Boykin MD [address] [place] [address] [place] [address] Physician Hematology/Oncology 06/05/23 Ivania Jackman, RN [address] [facility] [facility] [place] [address] Specialty Roofer Gypsum Hematology/Oncology 06/05/23 Krystyna Hernandez LISW-S [address] [place] [address] Blood and Marrow Transplant 02/23/24 Martina Marshall RN [address] [address] Specialty Roofer Gypsum Blood and Marrow Transplant 04/06/24 07/05/24 [place] [address] [place] [address] Physician Blood and Marrow Transplant 04/06/24 Project Manager Retail Relationship Specialty Start Date End Date Cleo Feliz, MANAGER ACTUARIAL.OUTPATIENT INTERVIEWING CLERK [address] [facility] [facility] [place] [address] Nurse Practitioner Hematology/Oncology 06/05/23 Michael Boykin MD [address] [place] [address] [place] [address] Physician Hematology/Oncology 06/05/23 Ivania Jackman, STEVE [address] [facility] [facility] [place] [address] Specialty Roofer Gypsum Hematology/Oncology 06/05/23 Krystyna Hernandez LISW-S [address] [place] [address] Blood and Marrow Transplant 02/23/24 Martina Marshall RN [address] [place] [id number] Specialty Roofer Gypsum Blood and Marrow Transplant 04/06/24 07/05/24 [place] [address] [place] [id number] Physician Blood and Marrow Transplant 04/06/24 Project Manager Retail Relationship Specialty Start Date End Date Cleo Feliz, MANAGER ACTUARIAL.OUTPATIENT INTERVIEWING CLERK [address] [facility] [place] [address] Nurse Practitioner Hematology/Oncology 06/05/23 Michael Boykin MD [address] [facility] [place] [address] Physician Hematology/Oncology 06/05/23 Ivania Jackman, STEVE [address] [place] [address] Specialty Roofer Gypsum Hematology/Oncology 06/05/23 Krystyna Hernandez LISW-S [address] [place] [address] Blood and Marrow Transplant 02/23/24 Martina Marshall RN [address] [address] Specialty Roofer Gypsum Blood and Marrow Transplant 04/06/24 06/18/24 [place] [address] [place] [address] Physician Blood and Marrow Transplant 04/06/24 Project Manager Retail Relationship Specialty Start Date End Date Cleo Feliz, MANAGER ACTUARIAL.OUTPATIENT INTERVIEWING CLERK [address] [facility] [place] [address] Nurse Practitioner Hematology/Oncology 06/05/23 Michael Boykin MD [address] [facility] [place] [address] Physician Hematology/Oncology 06/05/23 Ivania Jackman, STEVE [address] [facility] [place] [address] Specialty Roofer Gypsum Hematology/Oncology 06/05/23 Krystyna Hernandez LISW-Elias [address] [place], [place] [id number] Blood and Marrow Transplant 02/23/24 Martina Marshall RN [address] [address] Specialty Roofer Gypsum Blood and Marrow Transplant 04/06/24 06/18/24 [place] [address] [place] [address] Physician Blood and Marrow Transplant 04/06/24 Team Status: Inactive Member Role Status Dates Chiquita Rivera MD FACS Attending Provider Active Start: June 23, 2024 End: June 23, 2024 Project Manager Retail Relationship Specialty Start Date End Date Cleo Feliz, MANAGER ACTUARIAL.OUTPATIENT INTERVIEWING CLERK [address] [facility] [place] [address] Nurse Practitioner Hematology/Oncology 06/05/23 Michael Boykin MD [address] [facility] [place] [address] Physician Hematology/Oncology 06/05/23 Ivania Jackman, STEVE [address] [facility] [place] [address] Specialty Roofer Gypsum Hematology/Oncology 06/05/23 [place] [address] [place] [address] Physician Blood and Marrow Transplant 04/06/24 Giana Newton LISW [address] [place] [address] Counseling Services Manager 06/21/24 09/02/24 Project Manager Retail Relationship Specialty Start Date End Date Cleo Feliz, MANAGER ACTUARIAL.OUTPATIENT INTERVIEWING CLERK [address] [place] [address] Nurse Practitioner Hematology/Oncology 06/05/23 Michael Boykin MD [address] [place] [address] [place] [address] Physician Hematology/Oncology 06/05/23 Ivania Jackman, STEVE [address] [place] [address] [place] [address] Specialty Roofer Gypsum Hematology/Oncology 06/05/23 Krystyna Hernandez LISW-S [address] [place] [id number] Blood and Marrow Transplant 02/23/24 06/20/24 Martina Marshall RN [address] [address] Specialty Roofer Gypsum Blood and Marrow Transplant 04/06/24 06/18/24 [place] [address] [place] [address] Physician Blood and Marrow Transplant 04/06/24 Project Manager Retail Relationship Specialty Start Date End Date Cleo Feliz, MANAGER ACTUARIAL.OUTPATIENT INTERVIEWING CLERK [address] [place] [address] [place] [address] Nurse Practitioner Hematology/Oncology 06/05/23 Michael Boykin MD [address] [place] [address] [place] [address] Physician Hematology/Oncology 06/05/23 Ivania Jackman, STEVE [address] [facility] [place] [address] Specialty Roofer Gypsum Hematology/Oncology 06/05/23 Krystyna Hernandez LISW-S [address] [place] [address] Blood and Marrow Transplant 02/23/24 06/20/24 Project Manager Retail Relationship Specialty Start Date End Date Cleo Feliz, MANAGER ACTUARIAL.OUTPATIENT INTERVIEWING CLERK [address] [facility] [place] [address] Nurse Practitioner Hematology/Oncology 06/05/23 Michael Boykin MD [address] [facility] [place] [address] Physician Hematology/Oncology 06/05/23 Ivania Jackman, STEVE [address] [facility] [place] [address] Specialty Roofer Gypsum Hematology/Oncology 06/05/23 Krystyna Hernandez LISW-Elias [address] [place] [address] Blood and Marrow Transplant 02/23/24 06/20/24 Project Manager Retail Relationship Specialty Start Date End Date Cleo Feliz, MANAGER ACTUARIAL.OUTPATIENT INTERVIEWING CLERK [address] [facility] [place] [address] Nurse Practitioner Hematology/Oncology 06/05/23 Michael Boykin MD [address] [facility] [place] [address] Physician Hematology/Oncology 06/05/23 Ivania Jackman, RN [address] [facility] [place] [address] Specialty Roofer Gypsum Hematology/Oncology 06/05/23 Project Manager Retail Relationship Specialty Start Date End Date Cleo Feliz, MANAGER ACTUARIAL.OUTPATIENT INTERVIEWING CLERK [address] [facility] [place] [address] Nurse Practitioner Hematology/Oncology 06/05/23 Michael Boykin MD [address] [place] [place] [address] Physician Hematology/Oncology 06/05/23 Ivania Jackman, STEVE [address] [facility] [place] [address] Specialty Roofer Gypsum Hematology/Oncology 06/05/23 Project Manager Retail Relationship Specialty Start Date End Date Cleo Feliz, MANAGER ACTUARIAL.OUTPATIENT INTERVIEWING CLERK [address] [place] [address] Nurse Practitioner Hematology/Oncology 06/05/23 Michael Boykin MD [address] [place] [address] Physician Hematology/Oncology 06/05/23 Ivania Jackman, STEVE [address] [place] [address] Specialty Roofer Gypsum Hematology/Oncology 06/05/23 Project Manager Retail Relationship Specialty Start Date End Date Cleo Feliz, MANAGER ACTUARIAL.OUTPATIENT INTERVIEWING CLERK [address] [place] [address] Nurse Practitioner Hematology/Oncology 06/05/23 Michael Boykin MD [address] [place] [address] Physician Hematology/Oncology 06/05/23 Ivania Jackman, STEVE [address] [facility] [place] [address] Specialty Roofer Gypsum Hematology/Oncology 06/05/23 [place] [address] [place] [address] Physician Blood and Marrow Transplant 04/06/24 Giana Newton LISW [address] [place] [address] Counseling Services Manager 06/21/24 09/02/24 Project Manager Retail Relationship Specialty Start Date End Date Cleo Feliz, MANAGER ACTUARIAL.OUTPATIENT INTERVIEWING CLERK [address] [facility] [place] [address] Nurse Practitioner Hematology/Oncology 06/05/23 Michael Boykin MD [address] [facility] [place] [address] Physician Hematology/Oncology 06/05/23 [place] [address] [place] [address] Physician Blood and Marrow Transplant 04/06/24 Giana Newton LISW [address] [place] [address] Counseling Services Manager 06/21/24 09/02/24 Project Manager Retail Relationship Specialty [place] [address] [place] [address] PCP - General Hematology/Oncology 09/08/24 Cleo Feliz, MANAGER ACTUARIAL.OUTPATIENT INTERVIEWING CLERK [address] [facility] [place] [address] Nurse Practitioner Hematology/Oncology 06/05/23 Michael Boykin MD [address] [facility] [place] [address] Physician Hematology/Oncology 06/05/23 [place] [address] [place] [id number] Physician Blood and Marrow Transplant 04/06/24 Source Comments (unrecognize d section and content) In the event this informatio n is protected by the Federal Confidentiality of Alcohol and Drug Abuse Patient Records regulations: The Federal rules restrict any use of the information to criminally investigate or prosecute any alcohol or drug abuse patient.Prem[facility] HealthIn the event this information is protected by the Federal Confidentiality of Alcohol and Drug Abuse Patient Records regulations: The Federal rules restrict any use of the information to criminally investigate or prosecute any alcohol or drug abuse patient.Prem[facility] HealthIn the event this information is protected by the Federal Confidentiality of Alcohol and Drug Abuse Patient Records regulations: The Federal rules restrict any use of the information to criminally investigate or prosecute any alcohol or drug abuse patient.Prem[facility] HealthIn the event this information is protected by the Federal Confidentiality of Alcohol and Drug Abuse Patient Records regulations: The Federal rules restrict any use of the information to criminally investigate or prosecute any alcohol or drug abuse patient.Prem[facility] HealthIn the event this information is protected by the Federal Confidentiality of Alcohol and Drug Abuse Patient Records regulations: The Federal rules restrict any use of the information to criminally investigate or prosecute any alcohol or drug abuse patient.Prem[facility] HealthIn the event this information is protected by the Federal Confidentiality of Alcohol and Drug Abuse Patient Records regulations: The Federal rules restrict any use of the information to criminally investigate or prosecute any alcohol or drug abuse patient.Prem[facility] HealthIn the event this information is protected by the Federal Confidentiality of Alcohol and Drug Abuse Patient Records regulations: The Federal rules restrict any use of the information to criminally investigate or prosecute any alcohol or drug abuse patient.Premier HealthIn the event this information is protected by the Federal Confidentiality of Alcohol and Drug Abuse Patient Records regulations: The Federal rules restrict any use of the information to criminally investigate or prosecute any alcohol or drug abuse patient.Prem[facility] HealthIn the event this information is protected by the Federal Confidentiality of Alcohol and Drug Abuse Patient Records regulations: The Federal rules restrict any use of the information to criminally investigate or prosecute any alcohol or drug abuse patient.Prem[facility] HealthIn the event this information is protected by the Federal Confidentiality of Alcohol and Drug Abuse Patient Records regulations: The Federal rules restrict any use of the information to criminally investigate or prosecute any alcohol or drug abuse patient.Prem[facility] HealthIn the event this information is protected by the Federal Confidentiality of Alcohol and Drug Abuse Patient Records regulations: The Federal rules restrict any use of the information to criminally investigate or prosecute any alcohol or drug abuse patient.Prem[facility] HealthIn the event this information is protected by the Federal Confidentiality of Alcohol and Drug Abuse Patient Records regulations: The Federal rules restrict any use of the information to criminally investigate or prosecute any alcohol or drug abuse patient.Prem[facility] HealthIn the event this information is protected by the Federal Confidentiality of Alcohol and Drug Abuse Patient Records regulations: The Federal rules restrict any use of the information to criminally investigate or prosecute any alcohol or drug abuse patient.Prem[facility] HealthIn the event this information is protected by the Federal Confidentiality of Alcohol and Drug Abuse Patient Records regulations: The Federal rules restrict any use of the information to criminally investigate or prosecute any alcohol or drug abuse patient.Prem[facility] HealthIn the event this information is protected by the Federal Confidentiality of Alcohol and Drug Abuse Patient Records regulations: The Federal rules restrict any use of the information to criminally investigate or prosecute any alcohol or drug abuse patient.Prem[facility] HealthIn the event this information is protected by the Federal Confidentiality of Alcohol and Drug Abuse Patient Records regulations: The Federal rules restrict any use of the information to criminally investigate or prosecute any alcohol or drug abuse patient.Prem[facility] HealthIn the event this information is protected by the Federal Confidentiality of Alcohol and Drug Abuse Patient Records regulations: The Federal rules restrict any use of the information to criminally investigate or prosecute any alcohol or drug abuse patient.Prem[facility] HealthIn the event this information is protected by the Federal Confidentiality of Alcohol and Drug Abuse Patient Records regulations: The Federal rules restrict any use of the information to criminally investigate or prosecute any alcohol or drug abuse patient.Premier HealthIn the event this information is protected by the Federal Confidentiality of Alcohol and Drug Abuse Patient Records regulations: The Federal rules restrict any use of the information to criminally investigate or prosecute any alcohol or drug abuse patient.Prem[facility] HealthIn the event this information is protected by the Federal Confidentiality of Alcohol and Drug Abuse Patient Records regulations: The Federal rules restrict any use of the information to criminally investigate or prosecute any alcohol or drug abuse patient.Premier HealthIn the event this information is protected by the Federal Confidentiality of Alcohol and Drug Abuse Patient Records regulations: The Federal rules restrict any use of the information to criminally investigate or prosecute any alcohol or drug abuse patient.Prem[facility] HealthIn the event this information is protected by the Federal Confidentiality of Alcohol and Drug Abuse Patient Records regulations: The Federal rules restrict any use of the information to criminally investigate or prosecute any alcohol or drug abuse patient.Prem[facility] HealthIn the event this information is protected by the Federal Confidentiality of Alcohol and Drug Abuse Patient Records regulations: The Federal rules restrict any use of the information to criminally investigate or prosecute any alcohol or drug abuse patient.Prem[facility] HealthIn the event this information is protected by the Federal Confidentiality of Alcohol and Drug Abuse Patient Records regulations: The Federal rules restrict any use of the information to criminally investigate or prosecute any alcohol or drug abuse patient.Prem[facility] HealthIn the event this information is protected by the Federal Confidentiality of Alcohol and Drug Abuse Patient Records regulations: The Federal rules restrict any use of the information to criminally investigate or prosecute any alcohol or drug abuse patient.Prem[facility] HealthIn the event this information is protected by the Federal Confidentiality of Alcohol and Drug Abuse Patient Records regulations: The Federal rules restrict any use of the information to criminally investigate or prosecute any alcohol or drug abuse patient.Prem[facility] HealthIn the event this information is protected by the Federal Confidentiality of Alcohol and Drug Abuse Patient Records regulations: The Federal rules restrict any use of the information to criminally investigate or prosecute any alcohol or drug abuse patient.Prem[facility] HealthIn the event this information is protected by the Federal Confidentiality of Alcohol and Drug Abuse Patient Records regulations: The Federal rules restrict any use of the information to criminally investigate or prosecute any alcohol or drug abuse patient.Prem[facility] HealthIn the event this information is protected by the Federal Confidentiality of Alcohol and Drug Abuse Patient Records regulations: The Federal rules restrict any use of the information to criminally investigate or prosecute any alcohol or drug abuse patient.Prem[facility] HealthIn the event this information is protected by the Federal Confidentiality of Alcohol and Drug Abuse Patient Records regulations: The Federal rules restrict any use of the information to criminally investigate or prosecute any alcohol or drug abuse patient.Premier HealthIn the event this information is protected by the Federal Confidentiality of Alcohol and Drug Abuse Patient Records regulations: The Federal rules restrict any use of the information to criminally investigate or prosecute any alcohol or drug abuse patient.[facility] the event this information is protected by the Federal Confidentiality of Alcohol and Drug Abuse Patient Records regulations: The Federal rules restrict any use of the information to criminally investigate or prosecute any alcohol or drug abuse patient.Prem[facility] HealthIn the event this information is protected by the Federal Confidentiality of Alcohol and Drug Abuse Patient Records regulations: The Federal rules restrict any use of the information to criminally investigate or prosecute any alcohol or drug abuse patient.Prem[facility] HealthIn the event this information is protected by the Federal Confidentiality of Alcohol and Drug Abuse Patient Records regulations: The Federal rules restrict any use of the information to criminally investigate or prosecute any alcohol or drug abuse patient.Prem[facility] HealthIn the event this information is protected by the Federal Confidentiality of Alcohol and Drug Abuse Patient Records regulations: The Federal rules restrict any use of the information to criminally investigate or prosecute any alcohol or drug abuse patient.Prem[facility] HealthIn the event this information is protected by the Federal Confidentiality of Alcohol and Drug Abuse Patient Records regulations: The Federal rules restrict any use of the information to criminally investigate or prosecute any alcohol or drug abuse patient.Premier HealthIn the event this information is protected by the Federal Confidentiality of Alcohol and Drug Abuse Patient Records regulations: The Federal rules restrict any use of the information to criminally investigate or prosecute any alcohol or drug abuse patient.Prem[facility] HealthIn the event this information is protected by the Federal Confidentiality of Alcohol and Drug Abuse Patient Records regulations: The Federal rules restrict any use of the information to criminally investigate or prosecute any alcohol or drug abuse patient.Prem[facility] HealthIn the event this information is protected by the Federal Confidentiality of Alcohol and Drug Abuse Patient Records regulations: The Federal rules restrict any use of the information to criminally investigate or prosecute any alcohol or drug abuse patient.Prem[facility] HealthIn the event this information is protected by the Federal Confidentiality of Alcohol and Drug Abuse Patient Records regulations: The Federal rules restrict any use of the information to criminally investigate or prosecute any alcohol or drug abuse patient.Prem[facility] HealthIn the event this information is protected by the Federal Confidentiality of Alcohol and Drug Abuse Patient Records regulations: The Federal rules restrict any use of the information to criminally investigate or prosecute any alcohol or drug abuse patient.Prem[facility] HealthIn the event this information is protected by the Federal Confidentiality of Alcohol and Drug Abuse Patient Records regulations: The Federal rules restrict any use of the information to criminally investigate or prosecute any alcohol or drug abuse patient.Premier HealthIn the event this information is protected by the Federal Confidentiality of Alcohol and Drug Abuse Patient Records regulations: The Federal rules restrict any use of the information to criminally investigate or prosecute any alcohol or drug abuse patient.Prem[facility] HealthIn the event this information is protected by the Federal Confidentiality of Alcohol and Drug Abuse Patient Records regulations: The Federal rules restrict any use of the information to criminally investigate or prosecute any alcohol or drug abuse patient.Prem[facility] HealthIn the event this information is protected by the Federal Confidentiality of Alcohol and Drug Abuse Patient Records regulations: The Federal rules restrict any use of the information to criminally investigate or prosecute any alcohol or drug abuse patient.Prem[facility] HealthIn the event this information is protected by the Federal Confidentiality of Alcohol and Drug Abuse Patient Records regulations: The Federal rules restrict any use of the information to criminally investigate or prosecute any alcohol or drug abuse patient.Prem[facility] HealthIn the event this information is protected by the Federal Confidentiality of Alcohol and Drug Abuse Patient Records regulations: The Federal rules restrict any use of the information to criminally investigate or prosecute any alcohol or drug abuse patient.Prem[facility] HealthIn the event this information is protected by the Federal Confidentiality of Alcohol and Drug Abuse Patient Records regulations: The Federal rules restrict any use of the information to criminally investigate or prosecute any alcohol or drug abuse patient.Prem[facility] HealthIn the event this information is protected by the Federal Confidentiality of Alcohol and Drug Abuse Patient Records regulations: The Federal rules restrict any use of the information to criminally investigate or prosecute any alcohol or drug abuse patient.Prem[facility] HealthIn the event this information is protected by the Federal Confidentiality of Alcohol and Drug Abuse Patient Records regulations: The Federal rules restrict any use of the information to criminally investigate or prosecute any alcohol or drug abuse patient.Prem[facility] HealthIn the event this information is protected by the Federal Confidentiality of Alcohol and Drug Abuse Patient Records regulations: The Federal rules restrict any use of the information to criminally investigate or prosecute any alcohol or drug abuse patient.Prem[facility] HealthIn the event this information is protected by the Federal Confidentiality of Alcohol and Drug Abuse Patient Records regulations: The Federal rules restrict any use of the information to criminally investigate or prosecute any alcohol or drug abuse patient.Prem[facility] HealthIn the event this information is protected by the Federal Confidentiality of Alcohol and Drug Abuse Patient Records regulations: The Federal rules restrict any use of the information to criminally investigate or prosecute any alcohol or drug abuse patient.Premier HealthIn the event this information is protected by the Federal Confidentiality of Alcohol and Drug Abuse Patient Records regulations: The Federal rules restrict any use of the information to criminally investigate or prosecute any alcohol or drug abuse patient.Premier HealthIn the event this information is protected by the Federal Confidentiality of Alcohol and Drug Abuse Patient Records regulations: The Federal rules restrict any use of the information to criminally investigate or prosecute any alcohol or drug abuse patient.Premier HealthIn the event this information is protected by the Federal Confidentiality of Alcohol and Drug Abuse Patient Records regulations: The Federal rules restrict any use of the information to criminally investigate or prosecute any alcohol or drug abuse patient.Prem[facility] HealthIn the event this information is protected by the Federal Confidentiality of Alcohol and Drug Abuse Patient Records regulations: The Federal rules restrict any use of the information to criminally investigate or prosecute any alcohol or drug abuse patient.Premier HealthIn the event this information is protected by the Federal Confidentiality of Alcohol and Drug Abuse Patient Records regulations: The Federal rules restrict any use of the information to criminally investigate or prosecute any alcohol or drug abuse patient.Premier HealthIn the event this information is protected by the Federal Confidentiality of Alcohol and Drug Abuse Patient Records regulations: The Federal rules restrict any use of the information to criminally investigate or prosecute any alcohol or drug abuse patient.Premier HealthIn the event this information is protected by the Federal Confidentiality of Alcohol and Drug Abuse Patient Records regulations: The Federal rules restrict any use of the information to criminally investigate or prosecute any alcohol or drug abuse patient.Premier HealthIn the event this information is protected by the Federal Confidentiality of Alcohol and Drug Abuse Patient Records regulations: The Federal rules restrict any use of the information to criminally investigate or prosecute any alcohol or drug abuse patient.[facility]In the event this information is protected by the Federal Confidentiality of Alcohol and Drug Abuse Patient Records regulations: The Federal rules restrict any use of the information to criminally investigate or prosecute any alcohol or drug abuse patient.[facility] HealthIn the event this information is protected by the Federal Confidentiality of Alcohol and Drug Abuse Patient Records regulations: The Federal rules restrict any use of the information to criminally investigate or prosecute any alcohol or drug abuse patient.[facility] HealthIn the event this information is protected by the Federal Confidentiality of Alcohol and Drug Abuse Patient Records regulations: The Federal rules restrict any use of the information to criminally investigate or prosecute any alcohol or drug abuse patient.[facility] HealthIn the event this information is protected by the Federal Confidentiality of Alcohol and Drug Abuse Patient Records regulations: The Federal rules restrict any use of the information to criminally investigate or prosecute any alcohol or drug abuse patient.[facility] HealthIn the event this information is protected by the Federal Confidentiality of Alcohol and Drug Abuse Patient Records regulations: The Federal rules restrict any use of the information to criminally investigate or prosecute any alcohol or drug abuse patient.[facility] HealthIn the event this information is protected by the Federal Confidentiality of Alcohol and Drug Abuse Patient Records regulations: The Federal rules restrict any use of the information to criminally investigate or prosecute any alcohol or drug abuse patient.[facility] HealthIn the event this information is protected by the Federal Confidentiality of Alcohol and Drug Abuse Patient Records regulations: The Federal rules restrict any use of the information to criminally investigate or prosecute any alcohol or drug abuse patient.[facility] HealthIn the event this information is protected by the Federal Confidentiality of Alcohol and Drug Abuse Patient Records regulations: The Federal rules restrict any use of the information to criminally investigate or prosecute any alcohol or drug abuse patient.[facility] HealthIn the event this information is protected by the Federal Confidentiality of Alcohol and Drug Abuse Patient Records regulations: The Federal rules restrict any use of the information to criminally investigate or prosecute any alcohol or drug abuse patient.[facility] HealthIn the event this information is protected by the Federal Confidentiality of Alcohol and Drug Abuse Patient Records regulations: The Federal rules restrict any use of the information to criminally investigate or prosecute any alcohol or drug abuse patient.[facility] HealthIn the event this information is protected by the Federal Confidentiality of Alcohol and Drug Abuse Patient Records regulations: The Federal rules restrict any use of the information to criminally investigate or prosecute any alcohol or drug abuse patient.[facility] HealthIn the event this information is protected by the Federal Confidentiality of Alcohol and Drug Abuse Patient Records regulations: The Federal rules restrict any use of the information to criminally investigate or prosecute any alcohol or drug abuse patient.[facility] HealthIn the event this information is protected by the Federal Confidentiality of Alcohol and Drug Abuse Patient Records regulations: The Federal rules restrict any use of the information to criminally investigate or prosecute any alcohol or drug abuse patient.[facility]In the event this information is protected by the Federal Confidentiality of Alcohol and Drug Abuse Patient Records regulations: The Federal rules restrict any use of the information to criminally investigate or prosecute any alcohol or drug abuse patient.[facility]In the event this information is protected by the Federal Confidentiality of Alcohol and Drug Abuse Patient Records regulations: The Federal rules restrict any use of the information to criminally investigate or prosecute any alcohol or drug abuse patient.[facility] HealthIn the event this information is protected by the Federal Confidentiality of Alcohol and Drug Abuse Patient Records regulations: The Federal rules restrict any use of the information to criminally investigate or prosecute any alcohol or drug abuse patient.[facility] HealthIn the event this information is protected by the Federal Confidentiality of Alcohol and Drug Abuse Patient Records regulations: The Federal rules restrict any use of the information to criminally investigate or prosecute any alcohol or drug abuse patient.[facility] HealthIn the event this information is protected by the Federal Confidentiality of Alcohol and Drug Abuse Patient Records regulations: The Federal rules restrict any use of the information to criminally investigate or prosecute any alcohol or drug abuse patient.[facility] HealthIn the event this information is protected by the Federal Confidentiality of Alcohol and Drug Abuse Patient Records regulations: The Federal rules restrict any use of the information to criminally investigate or prosecute any alcohol or drug abuse patient.[facility] HealthIn the event this information is protected by the Federal Confidentiality of Alcohol and Drug Abuse Patient Records regulations: The Federal rules restrict any use of the information to criminally investigate or prosecute any alcohol or drug abuse patient.[facility] the event this information is protected by the Federal Confidentiality of Alcohol and Drug Abuse Patient Records regulations: The Federal rules restrict any use of the information to criminally investigate or prosecute any alcohol or drug abuse patient.[facility] HealthIn the event this information is protected by the Federal Confidentiality of Alcohol and Drug Abuse Patient Records regulations: The Federal rules restrict any use of the information to criminally investigate or prosecute any alcohol or drug abuse patient.[facility] HealthIn the event this information is protected by the Federal Confidentiality of Alcohol and Drug Abuse Patient Records regulations: The Federal rules restrict any use of the information to criminally investigate or prosecute any alcohol or drug abuse patient.[facility]In the event this information is protected by the Federal Confidentiality of Alcohol and Drug Abuse Patient Records regulations: The Federal rules restrict any use of the information to criminally investigate or prosecute any alcohol or drug abuse patient.[facility]In the event this information is protected by the Federal Confidentiality of Alcohol and Drug Abuse Patient Records regulations: The Federal rules restrict any use of the information to criminally investigate or prosecute any alcohol or drug abuse patient.[facility]In the event this information is protected by the Federal Confidentiality of Alcohol and Drug Abuse Patient Records regulations: The Federal rules restrict any use of the information to criminally investigate or prosecute any alcohol or drug abuse patient.[facility]In the event this information is protected by the Federal Confidentiality of Alcohol and Drug Abuse Patient Records regulations: The Federal rules restrict any use of the information to criminally investigate or prosecute any alcohol or drug abuse patient.[facility]In the event this information is protected by the Federal Confidentiality of Alcohol and Drug Abuse Patient Records regulations: The Federal rules restrict any use of the information to criminally investigate or prosecute any alcohol or drug abuse patient.[facility] HealthIn the event this information is protected by the Federal Confidentiality of Alcohol and Drug Abuse Patient Records regulations: The Federal rules restrict any use of the information to criminally investigate or prosecute any alcohol or drug abuse patient.[facility]In the event this information is protected by the Federal Confidentiality of Alcohol and Drug Abuse Patient Records regulations: The Federal rules restrict any use of the information to criminally investigate or prosecute any alcohol or drug abuse patient.[facility]In the event this information is protected by the Federal Confidentiality of Alcohol and Drug Abuse Patient Records regulations: The Federal rules restrict any use of the information to criminally investigate or prosecute any alcohol or drug abuse patient.[facility]In the event this information is protected by the Federal Confidentiality of Alcohol and Drug Abuse Patient Records regulations: The Federal rules restrict any use of the information to criminally investigate or prosecute any alcohol or drug abuse patient.[facility]In the event this information is protected by the Federal Confidentiality of Alcohol and Drug Abuse Patient Records regulations: The Federal rules restrict any use of the information to criminally investigate or prosecute any alcohol or drug abuse patient.[facility]In the event this information is protected by the Federal Confidentiality of Alcohol and Drug Abuse Patient Records regulations: The Federal rules restrict any use of the information to criminally investigate or prosecute any alcohol or drug abuse patient.[facility]In the event this information is protected by the Federal Confidentiality of Alcohol and Drug Abuse Patient Records regulations: The Federal rules restrict any use of the information to criminally investigate or prosecute any alcohol or drug abuse patient.[facility]In the event this information is protected by the Federal Confidentiality of Alcohol and Drug Abuse Patient Records regulations: The Federal rules restrict any use of the information to criminally investigate or prosecute any alcohol or drug abuse patient.[facility] HealthIn the event this information is protected by the Federal Confidentiality of Alcohol and Drug Abuse Patient Records regulations: The Federal rules restrict any use of the information to criminally investigate or prosecute any alcohol or drug abuse patient.[facility]In the event this information is protected by the Federal Confidentiality of Alcohol and Drug Abuse Patient Records regulations: The Federal rules restrict any use of the information to criminally investigate or prosecute any alcohol or drug abuse patient.[facility]In the event this information is protected by the Federal Confidentiality of Alcohol and Drug Abuse Patient Records regulations: The Federal rules restrict any use of the information to criminally investigate or prosecute any alcohol or drug abuse patient.[facility]In the event this information is protected by the Federal Confidentiality of Alcohol and Drug Abuse Patient Records regulations: The Federal rules restrict any use of the information to criminally investigate or prosecute any alcohol or drug abuse patient.[facility] HealthIn the event this information is protected by the Federal Confidentiality of Alcohol and Drug Abuse Patient Records regulations: The Federal rules restrict any use of the information to criminally investigate or prosecute any alcohol or drug abuse patient.[facility] HealthIn the event this information is protected by the Federal Confidentiality of Alcohol and Drug Abuse Patient Records regulations: The Federal rules restrict any use of the information to criminally investigate or prosecute any alcohol or drug abuse patient.[facility] HealthIn the event this information is protected by the Federal Confidentiality of Alcohol and Drug Abuse Patient Records regulations: The Federal rules restrict any use of the information to criminally investigate or prosecute any alcohol or drug abuse patient.[facility] HealthIn the event this information is protected by the Federal Confidentiality of Alcohol and Drug Abuse Patient Records regulations: The Federal rules restrict any use of the information to criminally investigate or prosecute any alcohol or drug abuse patient.[facility] HealthIn the event this information is protected by the Federal Confidentiality of Alcohol and Drug Abuse Patient Records regulations: The Federal rules restrict any use of the information to criminally investigate or prosecute any alcohol or drug abuse patient.[facility] Reason for Visit (unrecogniz ed section and content) Reason Comments Lymphoma New patient consulta tion Reason Comments 2nd opinion path Reason Comments Care Coordination Pathology Update Reason Comments Lymphoma Reason Comments Consult Specialty Diagnoses / Procedures Referred By Contac t Referred To Contact Diagnoses Diffuse large B-cell lymphoma of lymph nodes of multiple regions (HCC) Procedures CONSULT TO HEMATOLOGY/ONCOLOGY OFFICE/OUTPATIENT [facility] 60-74 MINUTES Michael Boykin MD [address] [place] [address] [place] [address] Referral ID Status Reason Start Date Expiration Date V isits Requested Visits Authorized [id number] Closed PCP Requested Referral 05/22/2023 05/21/2024 1 1 Reason Comments Roofer Gypsum - Other Reason Comments Orders Reason Comments Care Coordination Antiemetics Reason Comments Lymphoma 2 week follow up Reason Comments Roofer Gypsum - Other Uric Acid Resul ts Reason Comments Roofer Gypsum - Other Medication Prob carmencita Reason Comments Care Coordination Pathology Results Specialty Diagnoses / Procedures [facility] Referred To Contact Diagnoses 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) Niesha Galdamez MD [address] [place] [address] [place] [address] [address] [place] [id number] Referral ID Status Reason Start Date Expiration Date V isits Requested Visits Authorized [id number] Authorized 05/31/2023 08/29/2023 99 99 Reason Comments Care Coordination C1D1 treatment follo w up call Reason Comments Appointment Reason Comments Research IRB 5024 Informed Consent Specialty Diagnoses / Procedures [facility] Referred To Contact Hematology / HEMATOLOGY/ONCOLOGY Diagnoses lab/port Procedures LAB/PORT Michael Boykin MD [address] [facility] [place] [address] Nate Jordan Mc [address] [place] [address] Referral ID Status Reason Start Date Expiration Date V isits Requested Visits Authorized [id number] Authorized 06/17/2023 11/02/2023 99 99 Reason Comments [...] Patient Specialty Diagnoses / Procedures [facility] Referred To Contact Hematology Diagnoses Diagnosis: Follicular Lymphoma Diagnosed at: [facility] Referring Dr/Office: Self Biopsy performed: 12/17/23 Facility Bx done at: [facility] Imaging done: PET 11/18/23 Facility Imaging done at: [facility] Procedures NEW PATIENT SECOND OPINION Self, Self Cici, Dorcas Lundberg MD [address] [place] [address] Referral ID Status Reason Start Date Expiration Date V isits Requested Visits Authorized [id number] New Request 01/28/2024 02/21/2025 1 1 Reason Onset Date Comments Population Health Navigation Outreach 02/02/2024 ACO NO PCP Reason Comments Roofer Gypsum - Other Next Steps Reason Comments Established [...] of multiple regions (HCC) Niesha Galdamez MD [address] [place] [address] [place] [address] [address] [place] [id number] Referral ID Status Reason Start Date Expiration Date V isits Requested Visits Authorized [id number] Authorized 02/18/2024 05/18/2024 99 99 Reason Comments Returning Patient's Call Reason Comments Patient Update Reason Comments Patient Update Weekly Labs Reason Comments New Patient Reason Comments Roofer Gypsum - Other Appointment Reason Comments Reason Comments Radiology NM Specialty Diagnoses / Procedures Referred By Contac t Referred To Contact MOLECULAR & FUNCTIONAL IMAGING Diagnoses Diffuse large B-cell lymphoma of lymph nodes of multiple regions (HCC) Procedures NM PET/CT SKULL-THIGH SUBSEQUENT PET IMAGING CT ATTENUATION SKULL BASE MID-THIGH Michael Boykin MD [address] [place] [address] [place] [address] Molecular & Functional Imaging [address] [place] [address] Referral ID Status Reason Start Date Expiration Date V isits Requested Visits Authorized [id number] Closed Auto-Generate d Referral 06/17/2024 07/17/2025 1 1 Specialty Diagnoses / Procedures Referred By Contac t Referred To Contact MOLECULAR & FUNCTIONAL IMAGING Diagnoses Diffuse large B-cell lymphoma, unspecified body region (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 Procedures NM PET/CT SKULL-THIGH SUBSEQUENT PET IMAGING CT ATTENUATION SKULL BASE MID-THIGH Niesha Galdamez MD [address] [place] [address] Molecular & Functional Imaging [address] [place] [address] Referral ID Status Reason Start Date Expiration Date V isits Requested Visits Authorized [id number] Closed Auto-Generate d Referral 04/06/2024 05/06/2025 1 1 Specialty Diagnoses / Procedures Referred By Contac t Referred To Contact MOLECULAR & FUNCTIONAL IMAGING Diagnoses 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) Procedures NM PET/CT SKULL-THIGH SUBSEQUENT PET IMAGING CT ATTENUATION SKULL BASE MID-THIGH Niesha Galdamez MD [address] [place] [address] Molecular & Functional Imaging [address] [place] [address] Referral ID Status Reason Start Date Expiration Date V isits Requested Visits Authorized [id number] Closed Auto-Generate d Referral 01/20/2024 02/18/2025 1 1 Specialty Diagnoses / Procedures Referred By Contac t Referred To Contact MOLECULAR & FUNCTIONAL IMAGING Diagnoses Diffuse large B-cell lymphoma, unspecified body region (HCC) Procedures NM PET/CT SKULL-THIGH SUBSEQUENT PET IMAGING CT ATTENUATION SKULL BASE MID-THIGH Niesha Galdamez MD [address] [place] [address] Molecular & Functional Imaging [address] [place] [address] Referral ID Status Reason Start Date Expiration Date V isits Requested Visits Authorized [id number] Closed Auto-Generate d Referral 01/21/2024 02/18/2025 1 1 Specialty Diagnoses / Procedures Referred By Contac t Referred To Contact MOLECULAR & FUNCTIONAL IMAGING Diagnoses Diffuse large B-cell lymphoma, unspecified body region (HCC) Procedures NM PET/CT SKULL-THIGH SUBSEQUENT PET IMAGING CT ATTENUATION SKULL BASE MID-THIGH Cleo Feliz, [employer].[address] [place] [address] Molecular & Functional Imaging [address] [place] [address] Referral ID Status Reason Start Date Expiration Date V isits Requested Visits Authorized [id number] Closed Auto-Generate d Referral 10/28/2023 11/26/2024 1 1 Specialty Diagnoses / Procedures Referred By Sergio astorga Referred To Contact MOLECULAR & FUNCTIONAL IMAGING Diagnoses 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) Procedures NM PET/CT SKULL-THIGH SUBSEQUENT PET IMAGING CT ATTENUATION SKULL BASE MID-THIGH Michael Boykin MD [address] [place] [address] [place] [address] Molecular & Functional Imaging [address] [place], [place] [id number] Referral ID Status Reason Start Date Expiration Date V isits Requested Visits Authorized [id number] Closed Auto-Generate d Referral 09/02/2023 10/01/2024 1 1 Reason Comments Care Coordination Paxlovid Question Reason Onset Date Comments Population Health Navigation Outreach 09/08/2024 ACO No [facility] 11.4.2023 - SharePoint Worksheet - Multiple [...] BE BASED ON THE PRIMARY CLINICAL RECORDS. [employer] provides no warranty or guarantee of the accuracy or completeness of information in this document.
[2024-10-01 11:35] VITALS: BP 119/85; PULSE 94; TEMP 37.3; O2SAT 94; BMI 25.8
--- NOTE | 2024-10-01 11:42 | CT_ITS ---
The [address] [address] Patient Name: KATIA SHAIKH MRN: [id number] date: 1955 Sex: M Assigned Patient Location: ER Current Patient Location: Accession/Order Number: [id number] Exam Date: 10/01/2024 11:55 Report Date: 10/01/2024 12:47 At the request of: JAMAL NEAL Procedure: CT sinus wo con EXAM: CT sinus wo con HISTORY: Fever and congestion. History of lymphoma. COMPARISON: None. TECHNIQUE: An axial noncontrast scan was performed. Sagittal and coronal reformatted images were produced. Dose reduction techniques were achieved by using automated exposure control and/or adjustment of mA and/or kV according to patient size and/or use of iterative reconstruction technique. FINDINGS: There is partial air-fluid level in the right maxillary sinus. Mild mucosal thickening is seen in the right frontal sinus and some of the right-sided ethmoid sinuses minimal mucosal thickening is seen in the left maxillary sinus. There is near complete obstruction of the right ostiomeatal unit from mucosal thickening. The rest of the drainage pathways are patent. There is mild leftward nasal septal deviation. There is a large олег bullosa in the left little nasal turbinates. The contents of the orbits are normal. No suspicious or destructive bone lesions are seen. CT/CT sinus wo con IMPRESSION: Acute on chronic sinus disease as described above. There is near complete obstruction of the right ostiomeatal unit. Leftward nasal septal deviation. Electronically authenticated by: CHIQUITA BE Date: 10/01/2024 12:47
--- NOTE | 2024-10-01 11:42 | XR_ITS ---
The [address] [address] Patient Name: KATIA SHAIKH MRN: [id number] date: 1955 Sex: M Assigned Patient Location: ER Current Patient Location: ER Accession/Order Number: [id number] Exam Date: 10/01/2024 11:55 Report Date: 10/01/2024 12:46 At the request of: JAMAL NEAL Procedure: XR chest 1V EXAM: Portable chest REASON FOR EXAM: Fever. TECHNIQUE: A portable frontal view of the chest was obtained. COMPARISON: 09/27/2024. FINDINGS: The lungs are well-inflated and grossly clear. Stable chronic changes in both lungs. Stable right-sided chest port central line. The heart and mediastinum are normal. There is no mass or pathologic adenopathy. Osseous structures are normal. XR/XR chest 1V IMPRESSION: No acute cardiopulmonary process. Electronically authenticated by: CHIQUITA BE Date: 10/01/2024 12:46
--- NOTE | 2024-10-01 11:44 | ED.GENADUL1 ---
HPI HPI - General Adult General Chief complaint: Fever Stated complaint: fever Time Seen by Provider: 10/01/24 11:20 Source: patient Mode of arrival: walk-in Limitations: no limitations History of Present Illness HPI narrative: 69-year-old male presents for fever. He has had this for over a week and was seen here 5 days ago and had a negative workup. He continues to have a fever at home and had 1 this morning. He has some sinus symptoms, congestion but no head pain. No vomiting or diarrhea or complaints of abdominal pain. He does not complain of chest pain or shortness of breath or cough. No dysuria or hematuria. Related Data Home Medications ?Medication ?Instructions ?Recorded ?Confirmed levothyroxine 125 mcg capsule 125 mcg PO DAILY 05/01/23 10/01/24 multivitamin (Daily Multi-Vitamin 1 tab PO QAM 05/01/23 10/01/24 tablet) krill oil 500 mg capsule 500 mg PO DAILY 12/12/23 10/01/24 acyclovir 400 mg tablet 400 mg PO BID 06/14/24 10/01/24 Previous Rx's ?Medication ?Instructions ?Recorded amoxicillin 500 mg capsule 500 mg PO TID 10 days #30 caps 10/01/24 Allergies Allergy/AdvReac Type Severity Reaction Status Date / Time allopurinol Allergy Rash Verified 10/01/24 11:41 Opioid HPI Opioid Management Most Recent Opioid Data: Last Pain Scale 6 05/28/23 11:35 05/28/23 Review of Systems ROS Narrative A ten point review of systems is negative except as noted above. 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 ?C85.95 - Non-Hodgkin lymphoma, unspecified, lymph nodes of inguinal region and lower limb (ICD-10) Non Hodgkin's lymphoma ?C85.90 - Non-Hodgkin lymphoma, unspecified, unspecified site (ICD-10) Back pain ?M54.9 - Dorsalgia, unspecified (ICD-10) Heartburn ?R12 - Heartburn (ICD-10) Hypothyroidism ?E03.9 - Hypothyroidism, unspecified (ICD-10) Lymph node symptom ?R09.89 - Other specified symptoms and signs involving the circulatory and respiratory systems (ICD-10) Surgical History (Updated 12/12/23 @ 11:48 by Sandra Cano NP) H/O lymph node biopsy ?Z98.890 - Other specified postprocedural states (ICD-10) History of bronchoscopy ?Z98.890 - Other specified postprocedural states (ICD-10) History of thoracentesis ?Z98.890 - Other specified postprocedural states (ICD-10) H/O insertion of central venous access port ?Z95.828 - Presence of other vascular implants and grafts (ICD-10) History of lymph node excision ?Z98.890 - Other specified postprocedural states (ICD-10) Family History (Updated 05/01/23 @ 15:07 by Margie Munson) Other Family history of Alzheimer's disease Family history of diabetes mellitus Family history of lung cancer Family history of myocardial infarction Family history of renal failure Family history of skin cancer Social History (Updated 06/14/24 @ 10:46 by Esther Harris) Within the past year, how often did you have a drink containing alcohol: 2-3 times a week Within the past year, how often did you have six or more drinks on one occasion: never Smoking status: Former smoker Non-prescribed substance use: denies use 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 General: The patient appears well and in no apparent distress. Patient is resting comfortably on cart. Skin: Warm, dry, no pallor noted. There is no rash noted. Head: Normocephalic, atraumatic Eye: Normal conjunctiva, no drainage Ears, Nose, Mouth, and Throat: oral mucosa is moist. Nares patent. Cardiovascular: Regular Rate and Rhythm Respiratory: Patient is in no distress, no accessory muscle use, lungs are clear to auscultation, no wheezing, rales or rhonchi Back: non-tender GI: Soft and nontender Musculoskeletal: The patient has no evidence of calf tenderness, no pitting edema, symmetrical pulses noted bilaterally Neurological: A&O, normal speech Psychiatric: Cooperative Constitutional Vital Signs, click to edit/add: Last Vital Signs Temp 99.2 F 10/01/24 11:35 Pulse 94 H 10/01/24 11:35 Resp 16 10/01/24 11:35 BP 119/85 10/01/24 11:35 Pulse Ox 94 L 10/01/24 11:35 O2 Del Method Room Air 10/01/24 11:35 Course Vital Signs Vital signs: Vital Signs Temperature 99.2 F 10/01/24 11:35 Pulse Rate 94 H 10/01/24 11:35 Respiratory Rate 16 10/01/24 11:35 Blood Pressure 119/85 10/01/24 11:35 Pulse Oximetry 94 L 10/01/24 11:35 Oxygen Delivery Method Room Air 10/01/24 11:35 Temperature 99.2 F 10/01/24 11:35 Pulse Rate 94 H 10/01/24 11:35 Respiratory Rate 16 10/01/24 11:35 Blood Pressure 119/85 10/01/24 11:35 Pulse Oximetry 94 L 10/01/24 11:35 Oxygen Delivery Method Room Air 10/01/24 11:35 Medical Decision Making MDM Narrative Medical decision making narrative: The patient did not have a fever here. His workup is positive for CT scan showing acute on chronic sinusitis. The rest of his workup is negative with urinalysis pending. He has a positive COVID test. He had COVID several weeks ago and took Paxlovid and had a negative test 5 days ago. These findings are discussed with the patient and his . He is prescribed amoxicillin for the sinusitis. I do not feel that it is likely that this sinusitis would be causing his fever and this was discussed as well. Differential Diagnosis Differential Diagnosis: COVID, influenza, pneumonia, viral illness Lab Data Lab results reviewed: Yes I reviewed the patient's lab results Labs: Lab Results 10/01/24 10/01/24 Range/Units 12:12 12:23 WBC 6.4 (4.0-11.0) 10^3/uL RBC 3.29 L (4.70-6.10) 10^6/uL Hgb 11.3 L (14.0-18.0) g/dL Hct 33.2 L (42.0-54.0) % MCV 100.9 H (80.0-94.0) fL MCH 34.3 H (25.9-34.0) pg MCHC 34.0 (29.9-35.2) g/dL RDW 12.8 (11.0-15.0) % Plt Count 150 (150-450) 10^3/uL MPV 10.1 (9.5-13.5) fL Neut % (Auto) 86.7 H (43.0-75.0) % Lymph % (Auto) 1.4 L (20.5-60.0) % [place] % (Auto) 10.2 (1.7-12.0) % Eos % (Auto) 0.6 L (0.9-7.0) % Baso % (Auto) 0.3 (0.2-2.0) % Neut # (Auto) 5.6 (1.4-6.5) 10^3/uL Lymph # (Auto) 0.1 L (1.2-3.8) 10^3/uL [place] # (Auto) 0.7 (0.3-0.8) 10^3/uL Eos # (Auto) 0.0 (0.0-0.7) 10^3/uL Baso # (Auto) 0.0 (0.0-0.1) 10^3/uL Abs Immat Gran (auto) 0.05 H (0.00-0.03) 10^3/uL Imm/Tot Granulo (auto) 0.8 H (0.0-0.5) % Sodium 142 (136-145) mmol/L Potassium 4.1 (3.5-5.1) mmol/L Chloride 106 (98-107) mmol/L Carbon Dioxide 23.9 (21.0-32.0) mmol/L Anion Gap 16.2 BUN 15.0 (7.0-18.0) mg/dL Creatinine 1.10 (0.70-1.30) mg/dL Est GFR ( Amer) >60 (>=60 mL/min/1.73m^2) Est GFR (Non-Af Amer) >60 (>=60 mL/min/1.73m^2) BUN/Creatinine Ratio 13.6 Glucose 99 (74-106) mg/dL Calcium 8.5 (8.5-10.1) mg/dL Influenza Type A Ag Negative Influenza Type B Ag Negative SARS-CoV-2 Ag (CV2AG) Positive A (NEGATIVE) Imaging Data Chest x-ray: Radiologist's impression: ITS Impressions Chest X-Ray 10/01/24 11:42 IMPRESSION: No acute cardiopulmonary process. Electronically authenticated by: CHIQUITA BE Date: 10/01/2024 12:[address] 10/01/24 11:42 IMPRESSION: Acute on chronic sinus disease as described above. There is near complete obstruction of the right ostiomeatal unit. Leftward nasal septal deviation. Electronically authenticated by: CHIQUITA BE Date: 10/01/2024 12:47 Discharge Plan Discharge Chief Complaint: Fever Clinical Impression: Fever, Sinusitis Patient Disposition: Home, Self-Care Time of Disposition Decision: 13:15 Condition: Good Mode of Transportation: Private Vehicle Prescriptions / Home Meds: New amoxicillin 500 mg capsule 500 mg PO TID 10 Days Qty: 30 0RF No Action krill oil 500 mg capsule 500 mg PO DAILY acyclovir 400 mg tablet 400 mg PO BID levothyroxine 125 mcg capsule 125 mcg PO DAILY multivitamin [Daily Multi-Vitamin] Tablet 1 tab PO QAM Print Language: Faroese Instructions: Sinusitis (ED), Fever in Adults (ED) Referrals: Physician,Non-Staff, MD [Primary Care Provider] - 1 week
[2024-10-01 12:32] LABS: Basophils Percent Auto 0.3 % (0.2-2.0); Eosinophils Percent Auto 0.6 % (0.9-7.0); Hematocrit 33.2 % (42.0-54.0); Hemoglobin 11.3 g/dL (14.0-18.0); Immature Granulocytes Abs Auto 0.05 10^3/uL (0.00-0.03); Immature Granulocytes Pct Auto 0.8 % (0.0-0.5); Lymphocytes Absolute Auto 0.1 10^3/uL (1.2-3.8); Lymphocytes Percent Auto 1.4 % (20.5-60.0); Mean Corpuscular Hemoglobin 34.3 pg (25.9-34.0); Mean Corpuscular Volume 100.9 fL (80.0-94.0); Mean Platelet Volume 10.1 fL (9.5-13.5); Monocytes Absolute Auto 0.7 10^3/uL (0.3-0.8); Monocytes Percent Auto 10.2 % (1.7-12.0); Neutrophils Absolute Auto 5.6 10^3/uL (1.4-6.5); Neutrophils Percent Auto 86.7 % (43.0-75.0); Platelet Count 150 10^3/uL (150-450); Red Blood Count 3.29 10^6/uL (4.70-6.10); Red Cell Distribution Width 12.8 % (11.0-15.0); White Blood Count 6.4 10^3/uL (4.0-11.0)
[2024-10-01 12:41] LABS: Anion Gap 16.2; BUN Creatinine Ratio 13.6; Calcium 8.5 mg/dL (8.5-10.1); Carbon Dioxide 23.9 mmol/L (21.0-32.0); Chloride 106 mmol/L (98-107); Estimated GFR (African America >60 (>=60 mL/min/1.73m^2); Estimated GFR (Non-African Ame >60 (>=60 mL/min/1.73m^2); Glucose 99 mg/dL (74-106); Potassium 4.1 mmol/L (3.5-5.1); Sodium 142 mmol/L (136-145)
[2024-10-01 12:46] LABS: Influenza Virus A Antigen Negative; Influenza Virus B Antigen Negative; Internal Control Within Normal Limits
[2024-10-01 12:47] LABS: Internal Control Within Normal Limits; SARS-CoV-2 Ag POSITIVE (NEGATIVE)
[2024-10-01 13:32] LABS: Bilirubin Urine NEGATIVE (NEGATIVE); Blood Urine NEGATIVE (NEGATIVE); Clarity Urine CLEAR (CLEAR); Color Urine LT. YELLOW (YELLOW); Glucose Urine UA NEGATIVE (NEGATIVE); Ketones Urine NEGATIVE (NEGATIVE); Leukocyte Esterase Urine NEGATIVE (NEGATIVE); Nitrite Urine NEGATIVE (NEGATIVE); Protein Urine NEGATIVE (NEG/TRACE); Specific Gravity Urine <=1.005 (1.005-1.025); Urobilinogen Urine 0.2 EU/dL (0.2-1.0)
[2024-10-01 13:49] LABS: Bacteria Urine NONE SEEN #/HPF (NONE SEEN); Mucus Urine NONE SEEN (NONE SEEN); RBC Urine 0-2 #/HPF (0-2); Squamous Epithelial Cell Urine NONE SEEN #/LPF (NONE/RARE); WBC Urine NONE SEEN #/HPF (NONE SEEN)
[2024-10-01 13:50] LABS: Cast Seen? NONE SEEN #/LPF (NONE SEEN); Crystals Seen? None Seen #/HPF (None Seen)
== END 2024-10-01 13:26 | disposition home or self-care (01) ==
PROVIDERS: Emergency Provider Emergency Medicine
DX: J01.90 Acute sinusitis, unspecified (principal); Z87.891 Personal history of nicotine dependence; R50.9 Fever, unspecified; Z86.16 Personal history of COVID-19; J34.2 Deviated nasal septum
CPT/HCPCS: 36415; 70486; 71045; 80048; 81001; 85025; 87804; 87811; 99285

== ENCOUNTER 2024-10-13 14:46 | Outpatient (OUT) | payer MEDICARE, SELFPAY ==
[2024-10-13 15:29] LABS: Hematocrit 35.2 % (42.0-54.0); Hemoglobin 11.4 g/dL (14.0-18.0); Mean Corpuscular HGB Conc 32.4 g/dL (29.9-35.2); Mean Platelet Volume 10.6 fL (9.5-13.5); Platelet Count 168 10^3/uL (150-450); Red Blood Count 3.45 10^6/uL (4.70-6.10); Red Cell Distribution Width 14.3 % (11.0-15.0); White Blood Count 5.8 10^3/uL (4.0-11.0)
--- NOTE | 2024-10-13 15:31 | XR_ITS ---
The [address] [address] Patient Name: KATIA SHAIKH MRN: [id number] date: 1955 Sex: M Assigned Patient Location: LAB Current Patient Location: Accession/Order Number: [id number] Exam Date: 10/13/2024 15:32 Report Date: 10/14/2024 07:17 At the request of: SINDHU CABA Procedure: XR chest 2V EXAMINATION: XR chest 2V HISTORY: Lymphoma COMPARISON: 08/30/2024 TECHNIQUE: PA and lateral FINDINGS: LUNGS: Mild patchy parenchymal infiltrates with an upper lobe predominance. Linear opacity in the left lung base likely atelectasis or scar VASCULATURE: No increased pulmonary vasculature. PLEURA: No pneumothorax, effusion, or pleural thickening. CARDIAC: No cardiomegaly or cardiac silhouette abnormality. MEDIASTINUM: No visible mass or adenopathy. Stable right Port-A-Cath, the tip projects over the proximal superior vena cava BONES: No fracture or visible bone lesion. OTHER: Negative. XR/XR chest 2V IMPRESSION: Mild parenchymal infiltrates, consider an atypical or viral pneumonia Electronically authenticated by: QUE ESQUIVEL Date: 10/14/2024 07:17
[2024-10-13 15:41] LABS: Erythrocyte Sedimentation Rate 123 mm/hr (<=20)
[2024-10-13 15:49] LABS: Band Neutrophils Absolute 0.2 10^3/uL (0.0-0.3); Eosinophils Absolute Manual 0.11 10^3/uL (0.00-0.70); Lymphocytes Absolute Manual 0.11 10^3/uL (1.20-3.80); Monocytes Absolute Manual 0.17 10^3/uL (0.30-0.80); Segmented Neut Absolute Manual 5.16 10^3/uL (1.4-6.5)
[2024-10-13 15:50] LABS: Anisocytosis 1+; Ovalocytes 1+
[2024-10-13 15:54] LABS: Alanine Aminotransferase 64 U/L (16-63); Albumin Globulin Ratio 0.6; Albumin Level 2.7 g/dL (3.4-5.0); Alkaline Phosphatase 254 U/L (46-116); Anion Gap 14.7; Aspartate Amino Transferase 39 U/L (15-37); BUN Creatinine Ratio 14.5; Bilirubin Total 0.4 mg/dL (0.2-1.0); Carbon Dioxide 24.6 mmol/L (21.0-32.0); Chloride 106 mmol/L (98-107); Estimated GFR (African America >60 (>=60 mL/min/1.73m^2); Estimated GFR (Non-African Ame >60 (>=60 mL/min/1.73m^2); Globulin 4.2 g/dL; Glucose 95 mg/dL (74-106); Potassium 4.3 mmol/L (3.5-5.1); Sodium 141 mmol/L (136-145); Total Protein 6.9 g/dL (6.4-8.2)
== END 2024-10-13 14:47 | disposition home or self-care (01) ==
LOC: LAB 15:09
PROVIDERS: PCP Family Medicine; Visit Provider Family Medicine
DX: C85.90 Non-Hodgkin lymphoma, unspecified, unspecified site (principal)
CPT/HCPCS: 36415; 71046; 80053; 85007; 85027; 85652; 87040

== ENCOUNTER 2024-11-25 09:09 | Outpatient (OUT) | payer MEDICARE, SELFPAY ==
[2024-11-25 09:35] LABS: Hematocrit 38.8 % (42.0-54.0); Mean Corpuscular HGB Conc 33.5 g/dL (29.9-35.2); Mean Corpuscular Hemoglobin 33.4 pg (25.9-34.0); Mean Corpuscular Volume 99.7 fL (80.0-94.0); Mean Platelet Volume 9.7 fL (9.5-13.5); Platelet Count 216 10^3/uL (150-450); Red Blood Count 3.89 10^6/uL (4.70-6.10); Red Cell Distribution Width 16.8 % (11.0-15.0); White Blood Count 4.1 10^3/uL (4.0-11.0)
[2024-11-25 10:06] LABS: Segmented Neut Absolute Manual 2.74 10^3/uL (1.4-6.5)
[2024-11-25 10:07] LABS: Eosinophils Absolute Manual 0.28 10^3/uL (0.00-0.70); Lymphocytes Absolute Manual 0.32 10^3/uL (1.20-3.80); Monocytes Absolute Manual 0.73 10^3/uL (0.30-0.80)
[2024-11-25 10:10] LABS: Estimated Average Glucose 88 mg/dL; Glycohemoglobin A1C 4.7 % (4.5-6.2)
[2024-11-25 10:50] LABS: Prostate Specific Antigen Scrn 1.68 ng/mL (<=4.00)
[2024-11-25 11:01] LABS: Alanine Aminotransferase 48 U/L (16-63); Albumin Globulin Ratio 1.1; Albumin Level 3.9 g/dL (3.4-5.0); Alkaline Phosphatase 161 U/L (46-116); Anion Gap 13.3; Aspartate Amino Transferase 26 U/L (15-37); BUN Creatinine Ratio 17.7; Bilirubin Total 0.3 mg/dL (0.2-1.0); Calcium 9.7 mg/dL (8.5-10.1); Carbon Dioxide 29.1 mmol/L (21.0-32.0); Chloride 104 mmol/L (98-107); Cholesterol 240 mg/dL (<=200); Estimated GFR (African America >60 (>=60 mL/min/1.73m^2); Estimated GFR (Non-African Ame >60 (>=60 mL/min/1.73m^2); Free T3 2.84 pg/mL (2.18-3.98); Globulin 3.4 g/dL; Glucose 99 mg/dL (74-106); HDL Cholesterol 48 mg/dL (40-60); Potassium 4.4 mmol/L (3.5-5.1); Sodium 142 mmol/L (136-145); Thyroid Stimulating Hormone 0.044 uIU/mL (0.358-3.740); Total Protein 7.3 g/dL (6.4-8.2); Triglycerides 109 mg/dL (<=150); Uric Acid 6.9 mg/dL (3.5-7.2); VLDL CHOLESTEROL 21.8 mg/dL
== END 2024-11-25 09:10 | disposition home or self-care (01) ==
LOC: LAB 09:09
PROVIDERS: PCP Family Medicine; Visit Provider Family Medicine
DX: R09.81 Nasal congestion (principal); J01.90 Acute sinusitis, unspecified; J20.9 Acute bronchitis, unspecified; C85.90 Non-Hodgkin lymphoma, unspecified, unspecified site; E78.5 Hyperlipidemia, unspecified; Z12.5 Encounter for screening for malignant neoplasm of prostate
CPT/HCPCS: 36415; 80053; 80061; 83036; 83525; 84436; 84443; 84481; 84550; 85007; 85027; G0103